=== PATIENT | female | born 1960 | race Caucasian/White ===

== ENCOUNTER 2018-01-17 17:05 | Emergency (ER) | payer BC, SELFPAY ==
[2018-01-17 17:07] VITALS: BP 105/60; PULSE 97; RESP 16; TEMP 36.9; O2SAT 96; BMI 39.2
--- NOTE | 2018-01-17 17:30 | ED.RN ---
PT FAMILY CONCERNED THAT PT HAS HAD MULTIPLE INCIDENTS IN THE PAST WEEK WITH THINGS SUCH .. PUTTING FOOD IN THE OVEN.. TURNING THE GAS ON AND FORGETTING IT. STATES FOUND PT PASSED OUT ON FLOOR YESTERDAY WITH THE OVEN RUNNING. STATES DAYS PRIOR TO THAT PT BURNT FOOD IN THE CROCKPOT SHE FORGOT IT AND FOUND HER PASSED OUT AGAIN WITH FOOD TOTALLY BURNT. PT STATES HAS BEEN VERY SICK THE PAST WEEK WITH NAUSEA AND VOMITING
[2018-01-17] MEDS: 0.9% Normal Saline 1,000 ML 1000 ML IV (17:44)
[2018-01-17 18:13] VITALS: PULSE 96; RESP 17; O2SAT 91
[2018-01-17 18:15] LABS: Bacteria 0 SEEN /hpf (None Seen); Mucous, Urine 0 SEEN /hpf (<or=2+)
[2018-01-17 18:26] LABS: ALB/GLOB Ratio 1.3 RATIO (0.9-2.4); AST(SGOT) 15 U/L (15-37); Alanine Aminotransfer ALT/SGPT 25 U/L (13-56); Albumin, Serum 3.4 g/dL (3.2-5.0); Alkaline Phosphatase 81 U/L (45-117); Anion Gap 11 (5-15); BUN 43 mg/dL (7-18); Calcium,Total 7.8 mg/dL (8.5-10.1); Chloride 109 mmol/L (98-107); Creatinine, Serum 1.59 mg/dL (0.55-1.02); EST Glomerular Filtration Rate 36 mL/min (>60); Est Glom Filt Rate - Afr Amer 43 mL/min (>60); Estimated Creatinine Clearance 39.85 ml/min; Globulin 2.7 g/dL (2.2-4.2); Glucose 109 mg/dL (74-106); Lipase 444 U/L (73-393); Potassium 3.8 mmol/L (3.5-5.1); Protein, Total 6.1 g/dL (6.4-8.2); Sodium Level 142 mmol/L (136-145)
[2018-01-17 18:27] LABS: Color, Urine Yellow (Yellow); Glucose, Dipstick Normal (Normal); Ketone-Dipstick Negative (Negative); Leukocyte Esterase-Dipstick 25 /ul (Negative); Nitrite-Dipstick Negative (Negative); Occult Blood-Urine 25 /ul (Negative); Protein-Dipstick 15 mg/dl (Negative); Urine Bilirubin Dipstick Negative (Negative); Urine Clarity Sl. Cloudy (Clear); Urine Urobilinogen Normal (Normal); Urine pH 6.5 (5.0 - 8.0)
[2018-01-17 18:30] LABS: CPK Total, Creatine Kinase 48 U/L (26-192)
[2018-01-17 18:32] LABS: Absolute Lymphocyte Count 0.96 X10^3/ul (0.83-4.51); Absolute Neutrophil Count 3.2 X10^3/uL (2.0-7.7); Acetaminophen (Tylenol) Level < 2.0 ug/mL (10.0-30.0); Basophil# 0.01 X10^3/uL; Basophil% 0.2 % (0-1); Eosinophil# 0.05 X10^3/uL; Eosinophils% 1.1 % (0-5); Hematocrit 38.1 % (37-47); Hemoglobin 12.3 g/dl (12.0-15.0); Lymphocyte # 0.96 X10^3/ul (4.0); Lymphocyte % 21.6 % (19-41); Mean Corp Hgb Conc 32.3 g/gl (32-36); Mean Corpuscular Hgb 30.9 pg (27.0-32.0); Mean Corpuscular Volume 95.7 fL (81-99); Mean Platelet Vol. 9.7 fl (6.2-12.0); Monocyte# 0.27 X10^3/uL; Monocyte% 6.1 % (0-10); Neutrophil # 3.16 X10^3/uL (2.7-7.7); Platelet Count 165 K/mm3 (150-450); RBC Distribution Width CV 15.5 % (11.6-14.6); RBC Distribution Width SD 54.8 fl (35.1-43.9); Red Blood Count 3.98 M/mm3 (4.2-5.4); Salicylate < 1.7 mg/dL (2.8-20.0); White Blood Count 4.5 K/mm3 (4.4-11.0)
[2018-01-17 18:34] LABS: POSITIVE COUNT NO; POSITIVE DIFFERENTIAL NO; POSITIVE MORPHOLOGY NO
[2018-01-17 18:37] LABS: Red Blood Cells-Urine 0-5 SEEN /hpf (0-5); Squamous Epithelial Cells - UA 0-5 SEEN /hpf (5-10); White Blood Cells 0-5 SEEN /hpf (0-5)
[2018-01-17 18:49] LABS: Amphetamine Urine VISTA NEGATIVE (<1000 ng/mL); Barbiturate Urine VISTA NEGATIVE (< 200 ng/mL); Benzodiazepine Urine VISTA POSITIVE (< 200 ng/mL); Cocaine Urine VISTA NEGATIVE (< 300 ng/mL); Ecstacy Urine VISTA NEGATIVE (< 500 ng/mL); Methadone Urine VISTA NEGATIVE (< 300 ng/mL); PCP Urine VISTA NEGATIVE (< 25 ng/mL); THC Urine VISTA NEGATIVE (< 50 ng/mL); Vista UDS pH Range 6
[2018-01-17 19:09] VITALS: BP 101/78; PULSE 90; RESP 14; O2SAT 99
--- NOTE | 2018-01-17 19:30 | ED.VISSUMM ---
- ER Visit Summary Date of Service: 01/17/18 Chief Complaint: Vomiting and diarrhea History of Present Illness: The patient is a [address] Moran. She reports she has had vomiting and diarrhea for the past 10 days. She states the vomiting 4-5 times per day. 7 3-4 episodes of diarrhea per day. No blood in her emesis or in her stool. No black tarry stools. Patient reports that this afternoon she felt very tired and laid down. States that while she was asleep she was incontinent of stool. She does report that she is on Benadryl daily because I have a cat. States that she took 100 mg at 7:00 this morning. She is also on gabapentin 400 mg 4 times daily. She denies any suicidal ideation or taking her medications inappropriately. Physical Examination: Vitals: Stable. Afebrile. General: Well-nourished and well-developed. Head: Normocephalic atraumatic. Neck: Supple, no lymphadenopathy. No JVD. Nontender. Cardiovascular: Regular rate and rhythm. No murmurs. Respiratory: No respiratory distress. Clear to auscultation bilaterally. Abdominal: Soft, nontender, nondistended, normal bowel sounds. No guarding, rebound, or peritoneal signs. Back: Nontender. Extremities: Nontender, 1+ pitting edema lower extremity bilaterally. Skin: Normal color, no rash. Neurologic: Alert and oriented ?3. Cranial nerves II through XII are intact. Normal strength and sensation. Psych: Normal affect. Test Results: EKG is sinus at 92 with inferior T-wave inversions. There is no old EKG for comparison. Repeat EKG is unchanged. Troponin is negative. CPK is normal. UA is negative. LFTs marked total protein 6.1. Lipase is 444. Chem-7 more for chloride 109, glucose 109, BUN 43, creatinine 1.59, calcium 7.8. CBC is more for 7 neutrophils 71. Blood count level is 194. Tylenol and aspirin levels are negative. Tox screen shows benzodiazepines. Emergency Department Course and Treatment: A prolonged discussion with patient about the episode today. She reports that she and her had a disagreement and she was drinking today because of this. She does not normally drink. Treatment Plan: Patient has had no vomiting or diarrhea while here. She will be discharged instructions follow-up her primary care physician 1 day if not improving. Return to the emergency department for any worsening symptoms. Disposition: To home in improved and stable condition. Impression: 1. Alcohol intoxication. 2. Vomiting/diarrhea. This note was generated with [employer] dictation software. It may contain incorrect words, spelling, and punctuation that were not noted in review of the chart prior to signing ED Disposition - Plan for ED Patient: Disposition: Home or Assisted Living Chief Complaint: Alt LOC Instructions: ED Alcohol Intoxication Referrals: Karl Moran MD [Primary Care Provider] - 1-2 Days if not improving
[2018-01-17 19:34] VITALS: BP 105/70; PULSE 85; RESP 14; O2SAT 98
== END 2018-01-17 19:41 | disposition home or self-care (01) ==
LOC: ED 18:30
PROVIDERS: Emergency Provider Emergency Medicine; Family Provider Family Medicine; PCP Family Medicine
DX: F10.129 Alcohol abuse with intoxication, unspecified (principal); Y90.9 Presence of alcohol in blood, level not specified; R11.2 Nausea with vomiting, unspecified; R19.7 Diarrhea, unspecified; R53.1 Weakness; R10.9 Unspecified abdominal pain; I10 Essential (primary) hypertension; E78.00 Pure hypercholesterolemia, unspecified; N19 Unspecified kidney failure; Z90.49 Acquired absence of other specified parts of digestive tract; Z79.899 Other long term (current) drug therapy
CPT/HCPCS: 80053; 80307; 80320; 80329; 81001; 82550; 83690; 84484; 85025; 93005; 96360; 99285; J7030; A4216; G0480

== ENCOUNTER → 2018-05-03 09:18 | Outpatient (CLI) | payer OTHER, SELFPAY ==
[2018-05-03 09:05] VITALS: BMI 39.9
--- NOTE | 2018-05-03 09:22 | RAD_ITS ---
STUDY: X-RAY - LEFT TIBIA AND FIBULA REASON FOR EXAM: Female, 57 years old. Status post fall TECHNIQUE: 3 view(s) of the tibia and fibula were obtained. COMPARISON: None. FINDINGS: Mildly comminuted proximal fibular fracture without significant angulation or displacement. Remainder of the left tibia and fibula are within normal limits RAD/Tibia & Fibula 2 Views IMPRESSION: Proximal fibular fracture Electronically Signed: Bishop Moreno DO at 9:43 EST Tel , Service support ,
--- OUTSIDE RECORDS SUMMARY | 2018-06-28 04:07 | XMS RPT_ITS ---
:1960 Author Organization OHIP Care Team Providers Name Role Phone Kush Perry Attending Unavailable Kush Perry Referring Unavailable Carlos Guadarrama Primary Care Unavailable Anatoliy Sosa Attending Unavailable Carlos Guadarrama Primary Care Unavailable Nic Camarillo Attending Unavailable Bernardino Sinha Primary Care Unavailable Aimee Myrick Attending Unavailable Bernardino Sinha Referring Unavailable Aimee Myrick Attending Unavailable Aimee Myrick Referring Unavailable Bernardino Sinha Primary Care Unavailable CARLOS GUADARRAMA Attending Unavailable CARLOS GUADARRAMA Referring Unavailable PREM TAM Attending Unavailable BERNARDINO SINHA Referring Unavailable BERNARDINO SINHA Primary Care Unavailable PREM TAM Admitting Unavailable PREM TAM Attending Unavailable PROBLEMS PROBLEMS DATE TYPE CONDITION / CODE ATTENDING STATUS SOURCE 05/13/2018 Admitting Unknown / PREM TAM Active [facility] diagnosis UNK(Unknown) [facility] System Repository 05/03/2018 Unknown M79.662 - Pain in [facility], Active [place] left lower leg / [facility] M79.662(ICD-10) Hospital Repository 09/20/2017 Active Encounter for NA Active [place] screening for [facility] Main malignant neoplasm [place] of colon / Repository Z12.11(ICD-10) 06/25/2017 Unknown F11.20 - Opioid Basali, Ayman Active [place] dependence, Community uncomplicated / Hospital F11.20(ICD-10) Repository PROCEDURES PROCEDURES No Procedure Records FoundRESULTS RESULTS URGENT CARE VISIT Observed: 05/03/2018 Status: F Source: FRANCO REPORT 4:16 PM [facility] REPOSITORY [facility] [address] [place] [address] [address] [place] [address] OFFICE VISIT Date of Service: 05/03/18 MR#: [id number] Acct: [id number] Name: SAMIRAALFIE Karli Rep #: [id number] : 1960 Provider: MARKIE Myrick Age/Sex: 57/F Location: [facility] Status: Signed Intake Vital Signs05/03/18 Height 5 ft 8 in Intake Visit Reasons: L leg fracture? 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 Accompanied by: self Is patient in pain?: Yes Allergies Penicillins Allergy (Verified 05/03/18 09:06) Unknown DUST Allergy (Uncoded 05/03/18 09:06) Unknown SEASONAL Allergy (Uncoded 05/03/18 09:06) Unknown Medications Atorvastatin Calcium [Lipitor] 40 mg PO QHS 03/05/17 [History Confirmed 05/03/18] Diazepam [Valium] 10 mg PO Q8H PRN PRN #10 tab 03/05/17 [Rx Confirmed 05/03/18] Lisinopril [Zestril] 10 mg PO DAILY 03/05/17 [History Confirmed 05/03/18] Sertraline HCl [Zoloft] 100 mg PO DAILY 03/05/17 [History Confirmed 05/03/18] Temazepam [Restoril] 30 mg PO QHS PRN PRN 01/17/18 [History Confirmed 05/03/18] [facility] Medical History Arthritis (Acute) History of diarrhea (Acute) History of umbilical hernia (Acute) Hypertension (Chronic) Surgical History History of appendectomy (Acute) History of cholecystectomy (Acute) History of hysterectomy (Acute) History of tubal ligation (Acute) Social History Smoking Status: Never smoker alcohol intake: never HPI HPI Chief Complaint: Left lower leg pain Details: ALFIE HOGAN, is a 57 F who presents to the office today for left lower leg severe pain with any movement after falling on ice last night and landing with her right foot underneath her left lower leg. She states she went outside to hand a [place] bulb and on first step slipped on ice causing the fall. She took an Ibuprofen and states still had severe pain all night. At rest her pain scale is 7/10. Acute pain 8-10/pain with any attempted rotation of lower leg/ankle, though pain is only in the mid lateral left lower leg, none in the ankle. NO nausea, vomiting, fever or chills. Her History is significant for having OA. She has had 2 back surgeries, the last being a spinal fusion. She has also had 2 total hip replacements, the last in 2014. 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 Constitutional: No body ache, chills, fatigue, fever(s), night sweats, change in appetite, weakness, frequent falls, headache(s) or excessive sweating Eyes Eyes: No visual disturbances, light sensitivity, eye pain or change in vision ENT ENT: No ear pain, ear discharge, hearing loss, dizziness/vertigo, nasal discharge, difficulty swallowing, sore throat, neck pain or headache(s) Resp Respiratory: No cough, chest congestion, hemoptysis, shortness of breath or wheezing Cardio Cardiology: Positive for other (controlled hypertension); no shortness of breath, irregular heart rhythm, lightheadedness, chest pain at rest, chest pain with exertion, generalized swelling, orthopnea, palpitations or excessive sweating Gastro GI: No difficulty swallowing, abdominal pain, bloating, change in bowel habits, diarrhea, blood in stool, Black,tarry stools, nausea/dyspepsia or vomiting Genitourinary-Female: No burning urination, urinary frequency, urinary urgency, blood in urine or Vaginal Itching Musc Musculoskeletal: Positive for limited range of motion (left lower leg); no joint pain, back pain, numbness, tingling or neck pain Skin Skin: No lesions, itching or rash Neuro Neurology: No visual disturbances, numbness, tingling, abnormal speech, confusion, unsteady gait/balance, dizziness, weakness, frequent falls, loss of vision, headache(s) or memory loss Psych Psychiatric: No change in appetite, No confusion, No memory loss, No anxiety, No depression Endo Endocrine: No fatigue, cold intolerance, excessive sweating, flushing, heat intolerance or increased thirst/drinking Aller/Imm Allergy/Immunologic: No wheezing, itchy eyes, food intolerance, seasonal allergy symptoms or hives Vincent/Lymp Hematologic/Lymphatic: No easy bruising Exam Const General: cooperative, acute distress (moderate, severe with left leg movement. ) moderate and severe Nutritional Appearance: overweight Orientation: alert, oriented x3 HENMT Head: normal to inspection, normocephalic Ears: hearing grossly normal bilaterally, external ears normal Face and sinus: normal facial exam Eyes General: appearance normal, both eyes and all related structures Eyelids: eyelids normal Conjunctivae: conjunctivae normal Sclera: sclerae normal Pupils: PERRL, normal by confrontation Direct ophthalmoscopy: normal light reflex, no photophobia Neck Neck: normal visual inspection, full ROM, no meningeal signs, trachea midline, supple, no lymphadenopathy Neck mass: No Thyroid: thyroid normal Carotids: no bruits Lymphatic: no lymphadenopathy noted Chest Chest palpation AND inspection: normal inspection of the chest Resp Effort AND Inspection: normal respiratory effort, able to speak in complete sentences, symmetric chest movement, no audible wheezes, no cough, not labored, no respiratory distress Auscultation: Bilateral: Clear to Auscultation Cardio Rate: regular rate Rhythm: regular rhythm Heart Sounds: S1 normal, S2 normal Musc Cervical Spine: normal cervical lordosis Thoracic/Lumbar Spine: thoracic and lumbar spine normal to inspection Skin General: no rashes or lesions noted Neuro General: alert, oriented x3, moves all extremities (except for left lower extremity due to pain) Cranial Nerves: CN's II-XI intact bilaterally Cognition: normal cognition Speech: speech normal Gait: antalgic, gait assisted Method: wheelchair bound, other Sensory Exam: no sensory deficits noted Extrem General: normal exam except as noted (severe pain left lower leg with any rotation), edema (mild, left lower extremity with firmness, tender lateral mid lower leg) Laterality: left, other (pulses intact, good color) Psych Appearance: grossly normal, well kempt Mental Status: mental status grossly normal Affect: normal affect Speech and Movement: speech and movement normal Attitude: cooperative Thought Process: normal Thought Content: normal Judgment: judgment good Assessment AND Plan Problems 1. Fracture, fibula, proximal S82.839A Plan Patient sent for stat xray left lower leg Will return here to clinic after xrays. Result: Mildly comminuted proximal fibular fracture without significant angulation or displacement. Remainder of the left tibia and fibula are within normal limits. Called to get in to Ortho but no appointments until Sunday available. Boot placed, Patient advised to continue wheelchair use and No weight bearing left lower extremity. She called and made appointment for Sunday while here. Ibuprofen 800 Offered to patient but she refused stating she has otc analgesics at home. (at rest she states her pain is tolerable). Rec: to Ed if sudden swelling , increase in calf pain or SOB occur. 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 Orders Orders: Coding Level of Care Code Off vis,est,level 3 Diagnoses Fracture, fibula, proximal S82.839A Encounter type: initial encounter Fracture type: closed Laterality: left 05/03/18 1616 <Electronically signed by Aimee ADEN> Date Aimee ADEN Cosigner Signature: Date (if applicable) CC: TIBIA AND FIBULA Observed: 05/03/2018 Status: F Source: FRANCO 2 VIEWS 9:22 AM [facility] REPOSITORY [facility] Imaging Services [address] [place] [address] Tibia AND Fibula 2 Views MR#: [id number] Acct: [id number] Name: ALFIE HOGAN Rep #: [id number] : 1960 F 57 From: Bishop Moreno DO PCP: Bernardino Sinha MD Status: REG CLI Study: Tibia AND Fibula 2 Views Date of Exam: 05/03/18 Exam# [id number] Ordering Dr: Aimee Myrick STUDY: X-RAY - LEFT TIBIA AND FIBULA REASON FOR EXAM: Female, 57 years old. Status post fall TECHNIQUE: 3 view(s) of the tibia and fibula were obtained. COMPARISON: None. FINDINGS: Mildly comminuted proximal fibular fracture without significant angulation or displacement. 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 Had PUD in high schooll and was told years ago with IBS. Took ibuprofen for musculoskeletal pains in back. BMs mostly liquid, usually 2 a day , some times many times and socially in convenient. PAST MEDICAL HISTORY Diagnosis Date - Abdominal pain, right lower quadrant - Acute gastritis without mention of hemorrhage - Acute renal failure (HCC) 2011 2012 episodes of Cr elevation - Anxiety - Arthritis, multiple joint involvement - Asthma - DDD (degenerative disc disease), lumbar - Depression with anxiety - Diaphragmatic hernia without mention of obstruction or gangrene - Dyspepsia and other specified disorders of function of stomach - Esophagitis, unspecified - Hyperlipidemia 11/28/2011 - Hypertension - Kidney disease - GENNARO (obstructive sleep apnea) on CPAP - Other and unspecified ovarian cyst Ovarian cyst - Phlebitis and thrombophlebitis of unspecified site - Tobacco use disorder - Urinary calculus, unspecified Renal stones PAST SURGICAL HISTORY Procedure Laterality Date - APPENDECTOMY - COLONOSCOP W/ OR W/O [facility] SPEC 09/15/2005 [facility] Colonoscopy - EGD W/O [facility] SPECIMEN W/BX 08/30/06 - EGD W/O [facility] SPECIMEN W/BX 04/11/11 - LAP CHOLECYSTECT/CHOLANGIOGRAPHY 08/30/06 - OOPHORECTOMY, PART/TOTAL UNILAT/BILAT 2005 bilateral oophorectomy benign cysts, appendectomy - PAST SURGICAL HISTORY OF 2000?, 2009 ruptured disc L3-L4 repair; fusion - PAST SURGICAL HISTORY OF tendonectomy right elbow - PAST SURGICAL HISTORY OF 2008 left MEAGAN - PAST SURGICAL HISTORY OF 12/30/2014 right MEAGAN - REPAIR UMBILICAL LAURA,5+Y/O,REDUC grade 6 Hernia repair, umbilical >5yr - TONSILLECTOMY HX - VAGINAL HYSTERECTOMY adenomysis Allergies: ALLERGIES Allergen Reactions - Cat Hair Standardiz* Other: See Comments - Dust Other: See Comments sneezing - Penicillins - Percocet [Oxycodone* Itching - Seasonal Allergies Other: See Comments ragweed, cats, pollen cause sneezing and eyes watering Medications: BIPAP pantoprazole DR (PROTONIX) 40 mg tablet Take 40 mg by mouth once daily. atorvastatin (LIPITOR) 40 mg tablet take 1 tablet at bedtime for cholesterol sertraline (ZOLOFT) 100 mg tablet Take 2 tablets by mouth once daily. lisinopril (PRINIVIL) 10 mg tablet Take 1 tablet by mouth once daily. CPAP Mask (per patient preference) optional chin strap (if indicated) , filters, tubing, humidifier and lifetime supplies. Dx 327.23. albuterol HFA (VENTOLIN HFA) 90 mcg/actuation inhaler Inhale 2 Puffs as instructed every 4 hours as needed for Wheezing/Shortness of Breath. peg 3350-Electrolytes (GOLYTELY) 236-22.74-6.74 -5.86 gram suspension Refer to printed patient instructions that will be mailed to you. MULTIVITAMIN (DAILY VITAMIN ORAL) Take 1 tablet by mouth once daily. FAMILY HISTORY Problem Relation Age of Onset - Cancer Mother pancreatic - Cancer Maternal Grandmother stomach - Colon Cancer Paternal Grandmother - Hypertension Father - Colon Cancer Father 72 - Stroke Paternal Grandfather Employer And Job Title: None on file Years Of Education Completed: Not specified Marital Status: to Nadia with 2 children Social History Substance Use Topics - Smoking status: Former Smoker Packs/day: 0.10 Years: 20.00 Types: Cigarettes Start date: 12/15/2009 - Smokeless tobacco: Never Used Comment: quit in 2009 - Alcohol use No Review of Systems: Review of Systems Gastrointestinal: Positive for abdominal pain, diarrhea and nausea. Gas Physical Examination: BP 122/80 Pulse 89 Ht 5' 8 (1.73m) Wt 271 lb (122.9kg) SpO2 93% BMI 41.22 kg/(m2). Physical Exam Constitutional: She is oriented to person, place, and time. She appears well-developed and well-nourished. obese HENT: Head: Normocephalic and atraumatic. Right Ear: External ear normal. Left Ear: External ear normal. Nose: Nose normal. Mouth/Throat: Oropharynx is clear and moist. Eyes: Pupils are equal, round, and reactive to light. Conjunctivae and EOM are normal. Neck: Normal range of motion. Neck supple. Cardiovascular: Normal rate, regular rhythm, normal heart sounds and intact distal pulses. Pulmonary/Chest: Effort normal and breath sounds normal. Abdominal: Soft. Bowel sounds are normal. Large and obese abdomen Musculoskeletal: Normal range of motion. Neurological: She is alert and oriented to person, place, and time. She has normal reflexes. Skin: Skin is warm and dry. Psychiatric: She has a normal mood and affect. Her behavior is normal. Judgment and thought content normal. ASSESSMENT: Pain of upper abdomen (primary encounter diagnosis) Diarrhea, unspecified type Gastroesophageal reflux disease, esophagitis presence not specified PLAN: Office Visit on 04/05/18 -COLONOSCOPY - DIAGNOSTIC -[facility] PT ED DIGESTIVE DISEASES -[facility] PT ED DIGESTIVE DISEASES Return if symptoms worsen or fail to improve. I have confirmed and edited as necessary, the PFSH, HPI and ROS obtained by others. Prem Tam MD DATE: 04/05/18 TIME: 9:51 AM CNOV Observed: 04/05/2018 Status: COMPLETED Source: SPARKS 9:30 AM [facility] REPOSITORY Office Visit ([facility]) ALFIE HOGAN ([id number]) 1960 F Date Time Provider Department 04/05/18 9:30 AM PREM TAM [facility] During your visit today, we recorded the following information about you: Pulse Blood pressure Weight Height 89/minute 122/80 122.9 kg 1.727 m Prem Tam MD 04/05/2018 10:16 AM Signed Abdominal Pain HPI: Alfie Hogan is a 57 year old female who presents for Abdominal Pain across epigastric region sometimes spreading down wards, some time with nausea and vomiting for the last 2 months. Had PUD in high schooll and was told years ago with IBS. Took ibuprofen for musculoskeletal pains in back. BMs mostly liquid, usually 2 a day , some times many times and socially in convenient. PAST MEDICAL HISTORY Diagnosis Date - Abdominal pain, right lower quadrant - Acute gastritis without mention of hemorrhage - Acute renal failure (HCC) 2011 2012 episodes of Cr elevation - Anxiety - Arthritis, multiple joint involvement - Asthma - DDD (degenerative disc disease), lumbar - Depression with anxiety - Diaphragmatic hernia without mention of obstruction or gangrene - Dyspepsia and other specified disorders of function of stomach - Esophagitis, unspecified - Hyperlipidemia 11/28/2011 - Hypertension - Kidney disease - GENNARO (obstructive sleep apnea) on CPAP - Other and unspecified ovarian cyst Ovarian cyst - Phlebitis and thrombophlebitis of unspecified site - Tobacco use disorder - Urinary calculus, unspecified Renal stones PAST SURGICAL HISTORY Procedure Laterality Date - APPENDECTOMY - COLONOSCOP W/ OR W/O [facility] SPE[facility] 09/15/2005 [facility] Colonoscopy - EGD W/O [facility] SPECIMEN W/BX 08/30/06 - EGD W/O [facility] SPECIMEN W/BX 04/11/11 - LAP CHOLECYSTECT/CHOLANGIOGRAPHY 08/30/06 - OOPHORECTOMY, PART/TOTAL UNILAT/BILAT 2005 bilateral oophorectomy benign cysts, appendectomy - PAST SURGICAL HISTORY OF 2000?, 2010 ruptured disc L3-L4 repair; fusion - PAST SURGICAL HISTORY OF tendonectomy right elbow - PAST SURGICAL HISTORY OF 2008 left MEAGAN - PAST SURGICAL HISTORY OF 12/30/2014 right MEAGAN - REPAIR UMBILICAL LAURA,5+Y/O,REDUC grade 6 Hernia repair, umbilical >5yr - TONSILLECTOMY HX - VAGINAL HYSTERECTOMY adenomysis Allergies: ALLERGIES Allergen Reactions - Cat Hair Standardiz* Other: See Comments - Dust Other: See Comments sneezing - Penicillins - Percocet [Oxycodone* Itching - Seasonal Allergies Other: See Comments ragweed, cats, pollen cause sneezing and eyes watering Medications: BIPAP pantoprazole DR (PROTONIX) 40 mg tablet Take 40 mg by mouth once daily. atorvastatin (LIPITOR) 40 mg tablet take 1 tablet at bedtime for cholesterol sertraline (ZOLOFT) 100 mg tablet Take 2 tablets by mouth once daily. lisinopril (PRINIVIL) 10 mg tablet Take 1 tablet by mouth once daily. CPAP Mask (per patient preference) optional chin strap (if indicated) , filters, tubing, humidifier and lifetime supplies. Dx 327.23. albuterol HFA (VENTOLIN HFA) 90 mcg/actuation inhaler Inhale 2 Puffs as instructed every 4 hours as needed for Wheezing/Shortness of Breath. peg 3350-Electrolytes (GOLYTELY) 236-22.74-6.74 -5.86 gram suspension Refer to printed patient instructions that will be mailed to you. MULTIVITAMIN (DAILY VITAMIN ORAL) Take 1 tablet by mouth once daily. FAMILY HISTORY Problem Relation Age of Onset - Cancer Mother pancreatic - Cancer Maternal Grandmother stomach - Colon Cancer Paternal Grandmother - Hypertension Father - Colon Cancer Father 72 - Stroke Paternal Grandfather Employer And Job Title: None on file Years Of Education Completed: Not specified Marital Status: to Nadia with 2 children Social History Substance Use Topics - Smoking status: Former Smoker Packs/day: 0.10 Years: 20.00 Types: Cigarettes Start date: 12/15/2009 - Smokeless tobacco: Never Used Comment: quit in 2009 - Alcohol use No Review of Systems: Review of Systems Gastrointestinal: Positive for abdominal pain, diarrhea and nausea. Gas Physical Examination: BP 122/80 Pulse 89 Ht 5' 8 (1.73m) Wt 271 lb (122.9kg) SpO2 93% BMI 41.22 kg/(m2). Physical Exam Constitutional: She is oriented to person, place, and time. She appears well-developed and well-nourished. obese HENT: Head: Normocephalic and atraumatic. Right Ear: External ear normal. Left Ear: External ear normal. Nose: Nose normal. Mouth/Throat: Oropharynx is clear and moist. Eyes: Pupils are equal, round, and reactive to light. Conjunctivae and EOM are normal. Neck: Normal range of motion. Neck supple. Cardiovascular: Normal rate, regular rhythm, normal heart sounds and intact distal pulses. Pulmonary/Chest: Effort normal and breath sounds normal. Abdominal: Soft. Bowel sounds are normal. Large and obese abdomen Musculoskeletal: Normal range of motion. Neurological: She is alert and oriented to person, place, and time. She has normal reflexes. Skin: Skin is warm and dry. Psychiatric: She has a normal mood and affect. Her behavior is normal. Judgment and thought content normal. ASSESSMENT: Pain of upper abdomen (primary encounter diagnosis) Diarrhea, unspecified type Gastroesophageal reflux disease, esophagitis presence not specified PLAN: Office Visit on 04/05/18 -COLONOSCOPY - DIAGNOSTIC -[facility] PT ED DIGESTIVE DISEASES -[facility] PT ED DIGESTIVE DISEASES Return if symptoms worsen or fail to improve. I have confirmed and edited as necessary, the PFSH, HPI and ROS obtained by others. Prem Tam MD DATE: 04/05/18 TIME: 9:51 AM Referring Provider: BERNARDINO SINHA [[id number]] Allergies As of Date: 04/05/2018 Noted Allergy Reaction CAT HAIR STANDARDIZED ALLERGENIC *10/31/2017 14 - Other: See Comments DUST 04/13/2014 14 - Other: See Comments Comments: sneezing PENICILLINS 09/13/2005 PERCOCET (OXYCODONE-ACETAMINOPHEN)01/13/2015 9 - Itching SEASONAL ALLERGIES 04/13/2014 14 - Other: See Comments Comments: ragweed, cats, pollen cause sneezing and eyes watering Date Reviewed: 04/05/2018 Reviewed by: Prem Tam - Fully Assessed Reason for Visit: Abdominal Pain [1] Primary Visit Diagnosis:Pain of upper abdomen [R10.10] Other Visit Diagnoses:Diarrhea, unspecified type [R19.7] Gastroesophageal reflux disease, esophagitis presence not specified [K21.9] Order(s):COLONOSCOPY - DIAGNOSTIC [[id number]] Order #: [id number] [facility] PT ED DIGESTIVE DISEASES [] Order #: [id number]: 1 [facility] PT ED DIGESTIVE DISEASES [] Order #: [id number]. #:[id number]: 1 peg 3350-Electrolytes (GOLYTELY) 236-22.74-6.74 - 5.86 gram suspensionRefer to printed patient instructions that will be mailed to you.Disp: 1 BottleRfl: 0 Prescriptions as of 04/05/2018 Sig: BIPAP PANTOPRAZOLE 40 MG TABLET,DEL* Take 40 mg by mouth once earl* ATORVASTATIN 40 MG TABLET take 1 tablet at bedtime for * SERTRALINE 100 MG TABLET Take 2 tablets by mouth once * LISINOPRIL 10 MG TABLET Take 1 tablet by mouth once d* CPAP Mask (per patient preference)* ALBUTEROL SULFATE HFA 90 MCG/* Inhale 2 Puffs as instructed * PEG 3350-ELECTROLYTES 236 GRA* Refer to printed patient inst* DAILY VITAMIN ORAL Take 1 tablet by mouth once d* Problem List As Of Date 04/05/2018 Noted Resolved CHOLECYSTITIS SEE ALSO GALLBLADDER CHRONIC [K*INVALID FOR*12/15/2014 Diaphragmatic hernia without mention of obstruc*INVALID FOR* Acute gastritis without mention of hemorrhage [*INVALID FOR*12/15/2014 Esophagitis, unspecified [K20.9] INVALID FOR*12/15/2014 Dyspepsia and other specified disorders of func*INVALID FOR*12/15/2014 Hypertension [I10] 12/15/2014 Tobacco use disorder [F17.200] 12/15/2014 GENNARO (obstructive sleep apnea) [G47.33] More... Arthritis, multiple joint involvement [M12.9] Asthma [J45.909] Depression with anxiety [F41.8] Hyperlipidemia [E78.5] INVALID FOR*12/15/2014 Right groin pain [R10.31] INVALID FOR*11/22/2016 Acute right hip pain [M25.551] INVALID FOR*11/22/2016 DDD (degenerative disc disease), lumbar [M51.36] Acute renal failure (HCC) [N17.9] 11/22/2016 More... Lumbar scoliosis [M41.9] INVALID FOR* Primary osteoarthritis of right hip [M16.11] INVALID FOR* History of right hip replacement [Z96.641] INVALID FOR* History of kidney injury [Z87.828] INVALID FOR* More... Chronic insomnia [F51.04] INVALID FOR* More... Prescriptions ordered this encounter Disp Refills Start End PEG 3350-ELECTROLYTES 236 GRAM-22.74* 1 Douglas* 0 04/05/2018 Sig: Refer to printed patient instructions that will be mailed to you. Medications Discontinued During This Encounter gabapentin (NEURONTIN) 300 mg capsule 60 c* 2 08/30/2017 04/05/2018 Sig: One po at hs for one week then increase to one po bid. Patient not taking: Reported on 04/05/2018 Disc: Discontinued by another Health Care Provider Disposition: Return if symptoms worsen or fail to improve. Follow-up and Disposition History Recorded Encounter Status:Closed by PREM TAM MD on 04/05/18 CNCO Observed: 04/05/2018 Status: COMPLETED Source: [place] 12:00 AM [facility] REPOSITORY Letter Text COLONOSCOPY-GOLYTELY NO SOLID FOOD THE DAY BEFORE THIS EXAM Appointment Date: Sunday05/13/18 at 9:00 am Facility: [place] [address] Arrive At: 8:15 am AM Special Instructions: GLASS BUILDING You must have a responsible adult to drive you home and assist you at home while you finish recovering from your sedation. Please bring only one person with you. 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 Arrive 30-45 minutes before your procedure time. Purchase at the Pharmacy: Fill prescription for Golytely and 4 Dulcolax tablets. THE DAY BEFORE YOUR EXAM: 1. FOLLOW A CLEAR LIQUID DIET ALL DAY. 2. At 1:00PM, take 4 Dulcolax tablets. 3. At 5:00PM, start drinking solution. Drink a total of eight 8 oz glasses, one every 15-20 minutes. Please put the rest of the solution in the refrigerator for tomorrow morning. THE DAY OF YOUR EXAM 1. At 5:00 AM (four hours before your procedure) : drink one 8 oz glass every 15-20 minutes. Drink a total of four 8 oz glasses. Discard the remainder of the solution. 2. DO NOT DRINK ANYTHING ELSE AFTER THIS STEP IS COMPLETED. Nothing by mouth including clear liquids, food, gum and hard candy. 5 DAYS BEFORE EXAM STOP TAKING ASPIRIN OR ASPIRIN CONTAINING PRODUCTS, VITAMIN E AND IRON, BLOOD THINNERS SUCH COUMADIN, PLAVIX, AGGRENOX. DIABETICS ONLY Take only 1/2 of your daily dose of insulin or tablets the day before your exam. Do not take any more of your diabetic medications until the procedure is over and you have resumed eating again. Drink regular liquids, not diabetic and monitor your sugar throughout the day you are on clear liquids. If your sugar gets too low, drink some apple juice. It is very important that you drink all of the solution that we tell you to drink, if you do not complete the prep, your procedure may be cancelled. Any questions, please call our office at [phone] Ext [phone], [phone] or [phone]. 12 LEAD ELECTROCARDIOGRAM Observed: 01/22/2018 Status: F Source: [place] 1:48 PM [facility] REPOSITORY [facility] Cardiovascular Services [address] [place] [id number] 12 Lead EKG 01/17/18 1855 MR#: [id number] Acct: [id number] Name: ALFIE HOGAN Rep #: [id number] : 1960 57 From: Akin Stoll MD Attending Dr: Status: DEP ER Ordering Dr: Nic Camarillo MD Date: 01/17/18 Location: ED Sex: F C Admitted: Test Reason : REPEAT Blood Pressure : / mmHG Vent. Rate : 091 BPM Atrial Rate : 091 BPM P-R Int : 160 ms QRS Dur : 090 ms QT Int : 390 ms P-R-T Axes : 052 079 -12 degrees QTc Int : 479 ms Normal sinus rhythm Low voltage QRS ST AND T wave abnormality, consider inferior ischemia Prolonged QT Abnormal ECG Confirmed by AKIN STOLL MD ([id number]), material expeditor CHRISS MORA ([id number]) on 01/22/2018 1:47:36 PM Referred By: ELVIRA Confirmed By:AKIN STOLL MD 01/22/18 6760 Date Akin Stoll MD CC: Bernardino Sinha MD; Nic Camarillo MD Signed 12 LEAD ELECTROCARDIOGRAM Observed: 01/22/2018 Status: F Source: [place] 1:47 PM [facility] REPOSITORY [facility] Cardiovascular Services [address] [place] [id number] 12 Lead EKG 01/17/18 1748 MR#: [id number] Acct: [id number] Name: ALFIE HOGAN Rep #: [id number] : 1960 57 From: Akin Stoll MD Attending Dr: Status: DEP ER Ordering Dr: Nic Camarillo MD Date: 01/17/18 Location: ED Sex: F C Admitted: Test Reason : ALT LOC Blood Pressure : / mmHG Vent. Rate : 092 BPM Atrial Rate : 092 BPM P-R Int : 166 ms QRS Dur : 070 ms QT Int : 382 ms P-R-T Axes : 050 080 -17 degrees QTc Int : 472 ms AGE AND GENDER SPECIFIC ECG ANALYSIS Normal sinus rhythm Low voltage QRS Abnormal ECG Confirmed by AKIN STOLL MD ([id number]), material expeditor CHRISS MORA ([id number]) on 01/22/2018 1:47:23 PM Referred By: LONNY Confirmed By:AKIN STOLL MD 01/22/18 9397 Date Akin Stoll MD CC: Bernardino Sinha MD; Nic Camarillo MD Signed EMERGENCY DEPARTMENT Observed: 01/17/2018 Status: F Source: [place] SUMMARY 11:57 PM [facility] REPOSITORY [facility] Medical Records Department [address] [place] [address] Emergency Department Summary 01/17/181929 MR#: [id number] Acct: [id number] Name: ALFIE HOGAN Rep #: [id number] : 1960 57 From: Nic Camarillo MD PCP: Bernardino Sinha MD Status: DEP ER - ER Visit Summary Date of Service: 01/17/18 Chief Complaint: Vomiting and diarrhea History of Present Illness: The patient is a [address] Sinha. She reports she has had vomiting and diarrhea for the past 10 days. She states the vomiting 4-5 times per day. 7 3-4 episodes of diarrhea per day. No blood in her emesis or in her stool. No black tarry stools. Patient reports that this afternoon she felt very tired and laid down. States that while she was asleep she was incontinent of stool. She does report that she is on Benadryl daily because I have a cat. States that she took 100 mg at 7:00 this morning. She is also on gabapentin 400 mg 4 times daily. She denies any suicidal ideation or taking her medications inappropriately. Physical Examination: Vitals: Stable. Afebrile. General: Well-nourished and well-developed. Head: Normocephalic atraumatic. Neck: Supple, no lymphadenopathy. No JVD. Nontender. Cardiovascular: Regular rate and rhythm. No murmurs. Respiratory: No respiratory distress. Clear to auscultation bilaterally. Abdominal: Soft, nontender, nondistended, normal bowel sounds. No guarding, rebound, or peritoneal signs. Back: Nontender. Extremities: Nontender, 1+ pitting edema lower extremity bilaterally. Skin: Normal color, no rash. Neurologic: Alert and oriented 3. Cranial nerves II through XII are intact. Normal strength and sensation. Psych: Normal affect. Test Results: EKG is sinus at 92 with inferior T-wave inversions. There is no old EKG for comparison. Repeat EKG is unchanged. Troponin is negative. CPK is normal. UA is negative. LFTs marked total protein 6.1. Lipase is 444. Chem-7 more for chloride 109, glucose 109, BUN 43, creatinine 1.59, calcium 7.8. CBC is more for 7 neutrophils 71. Blood count level is 194. Tylenol and aspirin levels are negative. Tox screen shows benzodiazepines. Emergency Department Course and Treatment: A prolonged discussion with patient about the episode today. She reports that she and her had a disagreement and she was drinking today because of this. She does not normally drink. Treatment Plan: Patient has had no vomiting or diarrhea while here. She will be discharged instructions follow-up her primary care physician 1 day if not improving. Return to the emergency department for any worsening symptoms. Disposition: To home in improved and stable condition. Impression: 1. Alcohol intoxication. 2. Vomiting/diarrhea. This note was generated with VIOSOation software. It may contain incorrect words, spelling, and punctuation that were not noted in review of the chart prior to signing ED Disposition - Plan for ED Patient: Disposition: Home or Assisted Living Chief Complaint: Alt LOC Instructions: ED Alcohol Intoxication Referrals: Bernardino Sinha MD [Primary Care Provider] - 1-2 Days if not improving What to do if you have Problems For any increased pain, shortness of breath, bleeding, nausea or vomiting, chest pain, or any unexpected problems, contact your Primary Care Provider. Call [facility] ([phone]) or report to the closest Emergency Room. Call 911 if necessary. 01/17/18 4404 <Electronically signed by Nic Camarillo MD> Date Nic Camarillo MD Cosigner Signature (If Indicated): Date CC: Bernardino Sinha MD URINE DRUG SCREEN Collected: 01/17/2018 Status: F Source: [place] (VISTA) 6:05 PM [facility] REPOSITORY Order Comment: Order Date: 01/17/18 Has pt arrived? Y TYPE CODE TESTS RESULT OUT OF RANGE REFERENCE UNITS LAB L505.0075 TO BE Normal CONFIRMED Result Comment: CONFIRMATORY TESTING FOR ALL POSITIVE URINE DRUG SCREEN RESULTS WILL ONLY BE SENT OUT UPON PHYSICIAN ORDER. VISTA Urine Drug Screen methods provide only preliminary analytical test results. A more specific alternate chemical method must be used in order to obtain a confirmed analytical result. Gas chromatography/mass spectrometery (GC/MS) is the preferred confirmatory method. Clinical consideration and professional judgement should be applied to any drug of abuse test result, particularly when preliminary positive results are used. URINE TCA TESTING MUST BE ORDERED SEPARATELY. USE TEST MNEMONIC: [facility] LAB L505.5005 VISTA UDS PH 6 Normal LAB L505.5015 <1000 ng/mL AMPHETAMINES Normal NEGATIVE LAB L505.5025 < 200 ng/mL BARBITIURATES Normal NEGATIVE LAB L505.5035 < 200 High ng/mL BENZODIAZIPINE POSITIVE LAB L505.5045 < 300 ng/mL COCAINE Normal NEGATIVE LAB L505.5055 < 500 ng/mL ECSTACY Normal NEGATIVE LAB L505.5065 < 300 ng/mL METHADONE Normal NEGATIVE LAB L505.5075 < 300 ng/mL OPIATES Normal NEGATIVE LAB L505.5085 < 25 ng/mL PCP Normal NEGATIVE LAB L505.5095 < 50 ng/mL THC Normal NEGATIVE Performed By: #### L505.5000 #### [facility] [address] [place], [address] URINALYSIS, COMPLETE Collected: 01/17/2018 Status: F Source: [place] 6:05 PM [facility] REPOSITORY Order Comment: Order Date: 01/17/18 Has pt arrived? Y How was Urine Obtained? CLEAN CATCH TYPE CODE TESTS RESULT OUT OF RANGE REFERENCE UNITS LAB L400.3000 Yellow COLOR Normal Yellow LAB L400.3050 Clear Normal CLARITY Sl. Cloudy LAB L400.3200 Normal mg/dl Normal GLUCOSE, UR Normal LAB L400.3300 Negative mg/dL Normal BILIRUBIN URINE Negative LAB L400.3400 Negative mg/dl Normal KETONE UR Negative LAB L400.3465 1.002-1.030 Normal SP.GR. DIPSTX 1.010 LAB L400.3550 5.0 - 8.0 pH UR Normal 6.5 LAB L400.3600 Negative mg/dl High PROT 15 DIPSTX LAB L400.3700 Normal mg/dl Normal UROBILI Normal LAB L400.3750 Negative Normal NITRITE UR Negative LAB L400.3780 Negative /ul High 25 OCCULT BLOOD-UR LAB L400.3800 Negative /ul High LEUK 25 ESTERASE LAB L400.4050 0-5 /hpf WBC Normal 0-5 SEEN LAB L400.4100 0-5 /hpf Normal RBC-UA 0-5 SEEN LAB L400.4150 5-10 /hpf SQUAM Normal EPI 0-5 SEEN LAB L400.4300 None Seen /hpf 0 Normal BACTERIA SEEN LAB L400.4350 <or=2+ /hpf 0 Normal MUCUS, URINE SEEN Performed By: #### L400.0001 #### [facility] [address] [place], [place], [address] COMPREHENSIVE METABOLIC Collected: 01/17/2018 Status: F Source: [facility] 5:50 PM [facility] REPOSITORY TYPE CODE TESTS RESULT OUT OF RANGE REFERENCE UNITS LAB L501.0100 74-106 mg/dL High GLU 109 Result Comment: Fasting Glucose result from 100 to 125 mg/dL suggests IMPAIRED HOMEOSTASIS per A.D.A. criteria. Please note revised GLUCOSE reference range effective 2017. LAB L501.1000 7-18 mg/dL High BUN 43 LAB L501.1100 0.55-1.02 mg/dL High CREAT,SERUM 1.59 Result Comment: The validity of the calculated GFR AND GFRAA in patients over 70 years has not been determined. Clinical correlation is essential. LAB L501.1110 >60 mL/min Low EST GFR 36 Result Comment: Non- GFR Calc LAB L501.1115 >60 mL/min Low EST GFR - AA 43 Result Comment: GFR Calc LAB L501.1255 ml/min Normal Estimated CRCL 39.85 LAB L501.1300 10-20 RATIO High BUN/CRE 27.0 LAB L501.1500 6.4-8. g/dL Low 2 T PROT 6.1 LAB L501.1800 3.2-5. g/dL Normal 0 ALB 3.4 LAB L501.1950 2.2-4. g/dL Normal 2 GLOB 2.7 LAB L501.2000 0.9-2. RATIO Normal 4 A/G 1.3 LAB L501.2200 8.5-10 mg/dL Low .1 CA 7.8 LAB L501.4100 15-37 U/L Normal AST 15 LAB L501.4305 45-117 U/L Normal ALK P 81 LAB L501.4405 13-56 U/L Normal ALT 25 LAB L501.4600 0.20-1 mg/dL Normal .00 T BILI 0.40 LAB L501.5300 136-14 mmol/L Normal 5 NA 142 LAB L501.5600 3.5-5. mmol/L Normal 1 K 3.8 LAB L501.5900 98-107 mmol/L High CL 109 LAB L501.6100 21.0-3 mmol/L Normal 2.0 CO2 22.0 LAB L501.6200 5-15 Normal GAP 11 Performed By: #### L500.4050, L501.2450 #### [facility] [address] [place], [address] LIPASE Collected: 01/17/2018 Status: F Source: [place] 5:50 PM [facility] REPOSITORY TYPE CODE TESTS RESULT OUT OF REFERENCE UNITS RANGE LAB L501.2450 73-393 U/L High LIPASE 444 Performed By: #### L500.4050, L501.2450 #### [facility] [address] [place], [address] CPK TOTAL, CREATINE Collected: 01/17/2018 Status: F Source: [place] KINASE 5:50 PM [facility] REPOSITORY TYPE CODE TESTS RESULT OUT OF RANGE REFERENCE UNITS LAB L501.3620 26-192 U/L Normal CPK TOTAL 48 Performed By: #### L501.3620 #### [facility] [address] [place], [address] SALICYLATE Collected: 01/17/2018 Status: F Source: [place] 5:50 PM [facility] REPOSITORY TYPE CODE TESTS RESULT OUT OF REFERENCE UNITS RANGE LAB L501.8300 2.8-20.0 mg/dL Low SALICYLATE < 1.7 Performed By: #### L501.8300, L501.8400, L501.9100 #### [facility] [address] [facility], [place], [address] ACETAMINOPHEN (TYLENOL) Collected: 01/17/2018 Status: F Source: [place] LEVEL 5:50 PM [facility] REPOSITORY TYPE CODE TESTS RESULT OUT OF REFERENCE UNITS RANGE LAB L501.8400 10.0-30.0 ug/mL ACETAMINOPHEN Low < 2.0 Performed By: #### L501.8300, L501.8400, L501.9100 #### [facility] [address] [facility] [place], [address] ALCOHOL, BLOOD Collected: 01/17/2018 Status: F Source: [place] (MEDICAL)-SERUM 5:50 PM [facility] REPOSITORY TYPE CODE TESTS RESULT OUT OF RANGE REFERENCE UNITS LAB L501.9100 mg/dL Normal SERUM 194.0 ETOH Result Comment: The serum:whole blood ethanol ratio is approximately 1.14 and varies slightly with hematocrit. Medical Alcohol reference interval and critical value in non-tolerant individuals; 50 - 100 Impairment 100 Intoxication 100 - 250 Severe Poisoning 250 - 400 Deep/possible fatal coma Performed By: #### L501.8300, L501.8400, L501.9100 #### [facility] [address] [place], [place], [address] CBC W/DIFF, AUTOMATED Collected: 01/17/2018 Status: F Source: [place] 5:50 PM [facility] REPOSITORY TYPE CODE TESTS RESULT OUT OF RANGE REFERENCE UNITS LAB L100.1000 4.4-11.0 K/mm3 Normal WBC 4.5 LAB L100.1200 4.2-5.4 M/mm3 Low RBC 3.98 LAB L100.1300 12.0-15.0 g/dl Normal HGB 12.3 LAB L100.1400 37-47 % Normal HCT 38.1 LAB L100.1500 81-99 fL Normal MCV 95.7 LAB L100.1600 27.0-32.0 pg Normal MCH 30.9 LAB L100.1700 32-36 g/gl Normal MCHC 32.3 LAB L100.1810 11.6-14.6 % High RDW CV 15.5 LAB L100.1820 35.1-43.9 fl High RDW SD 54.8 LAB L100.1900 150-450 K/mm3 Normal PLT 165 LAB L100.2000 6.2-12.0 fl Normal MPV 9.7 LAB L100.2100 47-70 % High NEUT% 71.0 LAB L100.2200 19-41 % Normal LY% 21.6 LAB L100.2300 0-10 % Normal MONO% 6.1 LAB L100.2400 0-5 % Normal EO% 1.1 LAB L100.2500 0-1 % Normal BASO% 0.2 LAB L100.2550 0.0-0.9 % Normal IM GRAN % 0.000 Result Comment: IG% - Immature Granulocytes (promyelocytes, myelocytes and metamyelocytes) > 1% indicates that a LEFT SHIFT is Present. LAB L100.2620 2.0-7.7 X10 3/uL Normal Absolute Neut 3.2 LAB L100.2720 0.83-4.51 X10 3/ul Normal Absolute Lymph 0.96 Performed By: #### L100.0100 #### [facility] [address] [place], [address] TROPONIN-I Collected: 01/17/2018 Status: F Source: [place] 5:50 PM [facility] REPOSITORY TYPE CODE TESTS RESULT OUT OF RANGE REFERENCE UNITS [facility] L501.4010 <0.045 ng/mL Normal < 0.015 TROPONIN-I Result Comment: TROPONIN-I EXPECTED VALUES <0.045 Negative 0.045 - 0.590 Consistent with Cardiac Damage > OR = 0.600 Critical Value Not every elevated troponin is indicative of FL. These values should be used with clinical judgement in examining the patient's clinical picture for diagnosis. To establish a diagnosis of FL versus myocardial injury, there must be a demonstrated rise and/or fall in the troponin values, in addition to ischemic symptoms, EKG changes, new regional wall motion abnormality, and/or angiographical evidence. PLEASE NOTE: REFERENCE RANGES EDITED 17 Performed By: #### L501.4010 #### [facility] [address] [place], [address] FECAL OCCULT BLD Collected: 09/19/2017 Status: F Source: [facility] 6:00 PM [facility] REPOSITORY TYPE CODE TESTS RESULT OUT OF REFERENCE UNITS RANGE LAB IFO Negative Immuno Negative FOB Result Comment: This test was developed and its performance characteristics determined by [facility] [place] ([facility]). It has not been cleared or approved by the FDA. -[facility] is regulated under CLIA as qualified to perform high-complexity testing. This test is used for clinical purposes. It should not be regarded as investigational or for research. Performed By: #### IFOBT #### [facility] [address] [place], [place] [address] PROGRESS Observed: 08/03/2017 Status: COMPLETED Source: [place] 9:24 AM [facility] [place] REPOSITORY HNO ID: [id number] Author: Carlos Guadarrama Service: (none) Author Type: Physician Type: Progress Notes Filed: 08/03/2017 10:36 AM Note Text: Patient presents with: 6 Month Exam HPI: Patient presents today for office visit for follow up visit. Due for follow up. Did not get labs ordered in the fall. 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 Will get today. Denies side effects: No. Chest pain: No. Dyspnea: No. Edema: No. Palpitations: No. Syncope: No. Headache: No. Dizziness: No. Insomnia:OARRS website checked and validated. All prescriptions have been APPROPRIATELY filled. No suspicious activity was identified.- 08/03/2017 by Carlos Guadarrama MD. Now seeing Dr. Perry and receiving tramadol. Discussed risks of using benzos and opiates together. Explained our policy is using weaning and stopping one or the other. Is stopping tramadol. Did controlled substance agreement. Chronic pain: still on gabapentin. She is not happy with pain management. They want to do injections. Wants to be switch and see Dr. Alvarenga. HYPERLIPIDEMIA: Patient is taking medications: no, chiropractor convinced her to stop. Reviewed labs with her which are really bad. PSYCH: Currently tolerating medications well: Yes . Side effects: No. Sleep issues: With med.s . Energy changes: No. Current depression: No. Current anxiety: No. Suicidal ideation: No. GENNARO:switched to bipap. MEDICATIONS: Current Outpatient Prescriptions: temazepam (RESTORIL) 30 mg cap Take 1 capsule by mouth at bedtime as needed for up to 30 days. 15/ month. Do not refill more than monthly. lisinopril (PRINIVIL) 10 mg tablet Take 1 tablet by mouth once daily. gabapentin (NEURONTIN) 300 mg capsule One po at hs for one week then increase to one po bid. atorvastatin (LIPITOR) 40 mg tablet Take 1 tablet by mouth daily at bedtime. For cholesterol. sertraline (ZOLOFT) 100 mg tablet Take 2 tablets by mouth once daily. CPAP Mask (per patient preference) optional chin strap (if indicated) , filters, tubing, humidifier and lifetime supplies. Dx 327.23. albuterol HFA (VENTOLIN HFA) 90 mcg/actuation inhaler Inhale 2 Puffs as instructed every 4 hours as needed for Wheezing/Shortness of Breath. MULTIVITAMIN (DAILY VITAMIN ORAL) Take 1 tablet by mouth once daily. No current facility-administered medications for this visit. ALLERGIES: ALLERGIES Allergen Reactions - Dust Other: See Comments sneezing - Penicillins - Percocet [Oxycodone* Itching - Seasonal Allergies Other: See Comments ragweed, cats, pollen cause sneezing and eyes watering PAST MEDICAL HISTORY Diagnosis Date - Abdominal pain, right lower quadrant - Acute gastritis without mention of hemorrhage - Acute renal failure (HCC) 2011 2012 episodes of Cr elevation - Arthritis, multiple joint involvement - Asthma - DDD (degenerative disc disease), lumbar - Depression with anxiety - Diaphragmatic hernia without mention of obstruction or gangrene - Dyspepsia and other specified disorders of function of stomach - Esophagitis, unspecified - Hyperlipidemia 11/28/2011 - Hypertension - GENNARO (obstructive sleep apnea) on CPAP - Other and unspecified ovarian cyst Ovarian cyst - Phlebitis and thrombophlebitis of unspecified site - Tobacco use disorder - Urinary calculus, unspecified Renal stones PAST SURGICAL HISTORY Procedure Laterality Date - COLONOSCOP W/ OR W/O [facility] SPEC 09/15/2005 [facility] Colonoscopy - EGD W/O [facility] SPECIMEN W/BX 08/30/06 - EGD W/O [facility] SPECIMEN W/BX 04/11/11 - LAP CHOLECYSTECT/CHOLANGIOGRAPHY 08/30/06 - OOPHORECTOMY, PART/TOTAL UNILAT/BILAT 2005 bilateral oophorectomy benign cysts, appendectomy - PAST SURGICAL HISTORY OF 2000?, 2010 ruptured disc L3-L4 repair; fusion - PAST SURGICAL HISTORY OF tendonectomy right elbow - PAST SURGICAL HISTORY OF 2008 left MEAGAN - PAST SURGICAL HISTORY OF 12/30/2014 right MEAGAN - REPAIR UMBILICAL LAURA,5+Y/O,REDUC grade 6 Hernia repair, umbilical >5yr - VAGINAL HYSTERECTOMY adenomysis FAMILY HISTORY Problem Relation Age of Onset - Cancer Mother pancreatic - Cancer Maternal Grandmother stomach - Colon Cancer Paternal Grandmother - Hypertension Father - Colon Cancer Father 72 - Stroke Paternal Grandfather Social History Marital status: Spouse name: Nadia Years of education: Number of children: 2 Social History Main Topics Smoking status: Former Smoker Packs/day: 0.10 Years: 20.00 Types: Cigarettes Start date: 12/15/2009 Smokeless status: Never Used Comment: quit in 2009 Alcohol use: Yes 1.5 - 3.0 oz/week 1 - 2 Glasses of Wine (5oz) per week Drug use: No Sexual activity: Not Currently Reviewed current medications, allergies, past medical history, surgical history, family history and social history today. REVIEW OF SYSTEMS All other reviewed and negative other than HPI. HEALTH MAINTENANCE: Reviewed health maintenance issues today and recommended the following in detail. COLORECTAL CANCER SCREENING,SEE MODIFIER -recommended. MAMMOGRAM-recommended. VITALS: BP 160/108 Pulse 68 Resp 20 Wt 117.9 kg (260 lb) BMI 39.53 kg/m2 Last 4 Encounter Wt Readings: Date: Wt: 08/03/2017 117.9 kg (260 lb) 11/22/2016 115.7 kg (255 lb) 10/11/2016 112.5 kg (248 lb) 09/29/2016 104.3 kg (230 lb) PHYSICAL EXAMINATION: General appearance: Well appearing, alert, in no acute distress, well-hydrated, well nourished. Skin: Skin color, texture, turgor normal, no suspicious rashes or lesions Head: Normocephalic, no masses, lesions, tenderness or abnormalities Neck: Supple, no adenopathy; thyroid symmetric, normal size, no bruits Lungs: Lungs clear to auscultation. No wheezing, rhonchi, rales Heart: RRR without murmur, gallop, or rubs. No ectopy Abdomen: Normal abdominal exam, Abdomen soft, non-tender. Bowel sounds normal. No masses, organomegaly Extremities: No deformities, edema, skin discoloration, clubbing or cyanosis. Good capillary refill. PSYCH:Affect normal. Normal speech. Normal eye contact ASSESSMENT/PLAN: 1. GENNARO (obstructive sleep apnea) - ICD9: 327.23, ICD10: G47.33 (primary diagnosis) - continue treatment. 2. Depression with anxiety - ICD9: 300.4, ICD10: F41.8 - Continue current medications. Notify us if any difficulties are noted. 3. Asthma with acute exacerbation, unspecified asthma severity, unspecified whether persistent - ICD9: 493.92, ICD10: J45.901 - continue 4. DDD (degenerative disc disease), lumbar - ICD9: 722.52, ICD10: M51.36 - CONSULT TO PAIN MGT ANESTHESIA 5. Arthritis, multiple joint involvement - ICD9: 716.99, ICD10: M12.9 - see pain management. 6. Screening for colon cancer - ICD9: V76.51, ICD10: Z12.11 - declines colonscopy - FECAL OCCULT BLOOD TEST 7. Screening breast examination - ICD9: V76.10, ICD10: Z12.31 - Follow up for annual exam in one year. - ANTONIO SCREENING 8. Hyperlipidemia, unspecified hyperlipidemia type - ICD9: 272.4, ICD10: E78.5 - suboptimal control and - noncompliance - start meds. Get labs in six weeks. - COMP METABOLIC PANEL - LIPID PANEL BASIC - TSH BLD - T4 FREE/FREE THYROX 9. Primary osteoarthritis of right hip - ICD9: 715.15, ICD10: M16.11 - check vitamin d - VITAMIN D 25 HYDROXY 10. Chronic insomnia - ICD9: 780.52, ICD10: F51.04 - stop tramadol. Do urine tox and get controlled substance agreement. - TEMAZEPAM 30 MG CAPSULE Carlos Guadarrama MD CNOV Observed: 08/03/2017 Status: COMPLETED Source: [place] 9:00 AM [facility] REPOSITORY [facility] ALFIE HOGAN ([id number]) 1960 F Date Time Provider Department 08/03/17 9:00 AM CARLOS GUADARRAMA During your visit today, we recorded the following information about you: Pulse Respiration Blood pressure Weight 68/minute 20/minute 160/108 117.9 kg Carlos Guadarrama MD 08/03/2017 10:36 AM Signed Patient presents with: 6 Month Exam HPI: Patient presents today for office visit for follow up visit. Due for follow up. Did not get labs ordered in the fall. 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 Will get today. Denies side effects: No. Chest pain: No. Dyspnea: No. Edema: No. Palpitations: No. Syncope: No. Headache: No. Dizziness: No. Insomnia:OARRS website checked and validated. All prescriptions have been APPROPRIATELY filled. No suspicious activity was identified.- 08/03/2017 by Carlos Guadarrama MD. Now seeing Dr. Perry and receiving tramadol. Discussed risks of using benzos and opiates together. Explained our policy is using weaning and stopping one or the other. Is stopping tramadol. Did controlled substance agreement. Chronic pain: still on gabapentin. She is not happy with pain management. They want to do injections. Wants to be switch and see Dr. Alvarenga. HYPERLIPIDEMIA: Patient is taking medications: no, chiropractor convinced her to stop. Reviewed labs with her which are really bad. PSYCH: Currently tolerating medications well: Yes . Side effects: No. Sleep issues: With med.s . Energy changes: No. Current depression: No. Current anxiety: No. Suicidal ideation: No. GENNARO:switched to bipap. MEDICATIONS: Current Outpatient Prescriptions: temazepam (RESTORIL) 30 mg cap Take 1 capsule by mouth at bedtime as needed for up to 30 days. 15/ month. Do not refill more than monthly. lisinopril (PRINIVIL) 10 mg tablet Take 1 tablet by mouth once daily. gabapentin (NEURONTIN) 300 mg capsule One po at hs for one week then increase to one po bid. atorvastatin (LIPITOR) 40 mg tablet Take 1 tablet by mouth daily at bedtime. For cholesterol. sertraline (ZOLOFT) 100 mg tablet Take 2 tablets by mouth once daily. CPAP Mask (per patient preference) optional chin strap (if indicated) , filters, tubing, humidifier and lifetime supplies. Dx 327.23. albuterol HFA (VENTOLIN HFA) 90 mcg/actuation inhaler Inhale 2 Puffs as instructed every 4 hours as needed for Wheezing/Shortness of Breath. MULTIVITAMIN (DAILY VITAMIN ORAL) Take 1 tablet by mouth once daily. No current facility-administered medications for this visit. ALLERGIES: ALLERGIES Allergen Reactions - Dust Other: See Comments sneezing - Penicillins - Percocet [Oxycodone* Itching - Seasonal Allergies Other: See Comments ragweed, cats, pollen cause sneezing and eyes watering PAST MEDICAL HISTORY Diagnosis Date - Abdominal pain, right lower quadrant - Acute gastritis without mention of hemorrhage - Acute renal failure (HCC) 2011 2012 episodes of Cr elevation - Arthritis, multiple joint involvement - Asthma - DDD (degenerative disc disease), lumbar - Depression with anxiety - Diaphragmatic hernia without mention of obstruction or gangrene - Dyspepsia and other specified disorders of function of stomach - Esophagitis, unspecified - Hyperlipidemia 11/28/2011 - Hypertension - GENNARO (obstructive sleep apnea) on CPAP - Other and unspecified ovarian cyst Ovarian cyst - Phlebitis and thrombophlebitis of unspecified site - Tobacco use disorder - Urinary calculus, unspecified Renal stones PAST SURGICAL HISTORY Procedure Laterality Date - COLONOSCOP W/ OR W/O [facility] SPEC 09/15/2005 [facility] Colonoscopy - EGD W/O [facility] SPECIMEN W/BX 08/30/06 - EGD W/O [facility] SPECIMEN W/BX 04/11/11 - LAP CHOLECYSTECT/CHOLANGIOGRAPHY 08/30/06 - OOPHORECTOMY, PART/TOTAL UNILAT/BILAT 2005 bilateral oophorectomy benign cysts, appendectomy - PAST SURGICAL HISTORY OF 2000?, 2009 ruptured disc L3-L4 repair; fusion - PAST SURGICAL HISTORY OF tendonectomy right elbow - PAST SURGICAL HISTORY OF 2008 left MEAGAN - PAST SURGICAL HISTORY OF 12/30/2014 right MEAGAN - REPAIR UMBILICAL LAURA,5+Y/O,REDUC grade 6 Hernia repair, umbilical ANDgt;5yr - VAGINAL HYSTERECTOMY adenomysis FAMILY HISTORY Problem Relation Age of Onset - Cancer Mother pancreatic - Cancer Maternal Grandmother stomach - Colon Cancer Paternal Grandmother - Hypertension Father - Colon Cancer Father 72 - Stroke Paternal Grandfather Social History Marital status: Spouse name: Nadia Years of education: Number of children: 2 Social History Main Topics Smoking status: Former Smoker Packs/day: 0.10 Years: 20.00 Types: Cigarettes Start date: 12/15/2009 Smokeless status: Never Used Comment: quit in 2009 Alcohol use: Yes 1.5 - 3.0 oz/week 1 - 2 Glasses of Wine (5oz) per week Drug use: No Sexual activity: Not Currently Reviewed current medications, allergies, past medical history, surgical history, family history and social history today. REVIEW OF SYSTEMS All other reviewed and negative other than HPI. HEALTH MAINTENANCE: Reviewed health maintenance issues today and recommended the following in detail. COLORECTAL CANCER SCREENING,SEE MODIFIER -recommended. MAMMOGRAM-recommended. VITALS: BP 160/108 Pulse 68 Resp 20 Wt 117.9 kg (260 lb) BMI 39.53 kg/m2 Last 4 Encounter Wt Readings: Date: Wt: 08/03/2017 117.9 kg (260 lb) 11/22/2016 115.7 kg (255 lb) 10/11/2016 112.5 kg (248 lb) 09/29/2016 104.3 kg (230 lb) PHYSICAL EXAMINATION: General appearance: Well appearing, alert, in no acute distress, well-hydrated, well nourished. Skin: Skin color, texture, turgor normal, no suspicious rashes or lesions Head: Normocephalic, no masses, lesions, tenderness or abnormalities Neck: Supple, no adenopathy; thyroid symmetric, normal size, no bruits Lungs: Lungs clear to auscultation. No wheezing, rhonchi, rales Heart: RRR without murmur, gallop, or rubs. No ectopy Abdomen: Normal abdominal exam, Abdomen soft, non-tender. Bowel sounds normal. No masses, organomegaly Extremities: No deformities, edema, skin discoloration, clubbing or cyanosis. Good capillary refill. PSYCH:Affect normal. Normal speech. Normal eye contact ASSESSMENT/PLAN: 1. GENNARO (obstructive sleep apnea) - ICD9: 327.23, ICD10: G47.33 (primary diagnosis) - continue treatment. 2. Depression with anxiety - ICD9: 300.4, ICD10: F41.8 - Continue current medications. Notify us if any difficulties are noted. 3. Asthma with acute exacerbation, unspecified asthma severity, unspecified whether persistent - ICD9: 493.92, ICD10: J45.901 - continue 4. DDD (degenerative disc disease), lumbar - ICD9: 722.52, ICD10: M51.36 - CONSULT TO PAIN MGT ANESTHESIA 5. Arthritis, multiple joint involvement - ICD9: 716.99, ICD10: M12.9 - see pain management. 6. Screening for colon cancer - ICD9: V76.51, ICD10: Z12.11 - declines colonscopy - FECAL OCCULT BLOOD TEST 7. Screening breast examination - ICD9: V76.10, ICD10: Z12.31 - Follow up for annual exam in one year. - ANTONIO SCREENING 8. Hyperlipidemia, unspecified hyperlipidemia type - ICD9: 272.4, ICD10: E78.5 - suboptimal control and - noncompliance - start meds. Get labs in six weeks. - COMP METABOLIC PANEL - LIPID PANEL BASIC - TSH BLD - T4 FREE/FREE THYROX 9. Primary osteoarthritis of right hip - ICD9: 715.15, ICD10: M16.11 - check vitamin d - VITAMIN D 25 HYDROXY 10. Chronic insomnia - ICD9: 780.52, ICD10: F51.04 - stop tramadol. Do urine tox and get controlled substance agreement. - TEMAZEPAM 30 MG CAPSULE Carlos Guadarrama MD Referring Provider: SELF [200] Allergies As of Date: 08/03/2017 Noted Allergy Reaction DUST 04/13/2014 14 - Other: See Comments Comments: sneezing PENICILLINS 09/13/2005 PERCOCET (OXYCODONE-ACETAMINOPHEN)01/13/2015 9 - Itching SEASONAL ALLERGIES 04/13/2014 14 - Other: See Comments Comments: ragweed, cats, pollen cause sneezing and eyes watering Date Reviewed: 08/03/2017 Reviewed by: Airam Lang Ma - Fully Assessed Reason for Visit: 6 Month Exam [189] Primary Visit Diagnosis:GENNARO (obstructive sleep apnea) [G47.33] Other Visit Diagnoses:Depression with anxiety [F41.8] Asthma with acute exacerbation, unspecified asthma severity, unspecified whether persistent [J45.901] DDD (degenerative disc disease), lumbar [M51.36] Arthritis, multiple joint involvement [M12.9] Screening for colon cancer [Z12.11] Screening breast examination [Z12.31] Hyperlipidemia, unspecified hyperlipidemia type [E78.5] Primary osteoarthritis of right hip [M16.11] Chronic insomnia [F51.04] Order(s):CONSULT TO PAIN MGT ANESTHESIA [19990909] Order #: [id number]: 1 FECAL OCCULT BLOOD TEST [SQIFOBT] Order #: [id number] FUTURE ANTONIO SCREENING [3622545] Order #: [id number] FUTURE COMP METABOLIC PANEL [SQCMP] Order #: [id number] FUTURE LIPID PANEL BASIC [SQLIPB] Order #: [id number] FUTURE TSH BLD [SQTSH] Order #: [id number] FUTURE T4 FREE/FREE THYROX [SQFT4] Order #: [id number] FUTURE VITAMIN D 25 HYDROXY [SQVITD] Order #: [id number] FUTURE temazepam (RESTORIL) 30 mg capTake 1 capsule by mouth at bedtime as needed for up to 30 days. 15/ month. Do not refill more than monthly.Disp: 15 capsuleRfl: 0 Prescriptions as of 08/03/2017 Sig: TEMAZEPAM 30 MG CAPSULE Take 1 capsule by mouth at be* LISINOPRIL 10 MG TABLET Take 1 tablet by mouth once d* GABAPENTIN 300 MG CAPSULE One po at hs for one week the* ATORVASTATIN 40 MG TABLET Take 1 tablet by mouth daily * SERTRALINE 100 MG TABLET Take 2 tablets by mouth once * CPAP Mask (per patient preference)* ALBUTEROL SULFATE HFA 90 MCG/* Inhale 2 Puffs as instructed * DAILY VITAMIN ORAL Take 1 tablet by mouth once d* Problem List As Of Date 08/03/2017 Noted Resolved CHOLECYSTITIS SEE ALSO GALLBLADDER CHRONIC [K*INVALID FOR*12/15/2014 Diaphragmatic hernia without mention of obstruc*INVALID FOR* Acute gastritis without mention of hemorrhage [*INVALID FOR*12/15/2014 Esophagitis, unspecified [K20.9] INVALID FOR*12/15/2014 Dyspepsia and other specified disorders of func*INVALID FOR*12/15/2014 Hypertension [I10] 12/15/2014 Tobacco use disorder [F17.200] 12/15/2014 GENNARO (obstructive sleep apnea) [G47.33] More... Arthritis, multiple joint involvement [M12.9] Asthma [J45.909] Depression with anxiety [F41.8] Hyperlipidemia [E78.5] INVALID FOR*12/15/2014 Right groin pain [R10.31] INVALID FOR*11/22/2016 Acute right hip pain [M25.551] INVALID FOR*11/22/2016 DDD (degenerative disc disease), lumbar [M51.36] Acute renal failure (HCC) [N17.9] 11/22/2016 More... Lumbar scoliosis [M41.9] INVALID FOR* Primary osteoarthritis of right hip [M16.11] INVALID FOR* History of right hip replacement [Z96.641] INVALID FOR* History of kidney injury [Z87.828] INVALID FOR* More... Chronic insomnia [F51.04] INVALID FOR* More... Prescriptions ordered this encounter Disp Refills Start End TEMAZEPAM 30 MG CAPSULE 15 c* 0 08/03/2017 09/02/2017 Class: Print RX Route: ORAL Sig: Take 1 capsule by mouth at bedtime as needed for up to 30 days. 15/ month. Do not refill more than monthly. Medications Discontinued During This Encounter temazepam (RESTORIL) 30 mg cap 15 c* 0 08/02/2017 08/03/2017 Class: Print RX Route: ORAL Sig: Take 1 capsule by mouth at bedtime as needed for up to 30 days. 15/ month. Do not refill more than monthly. Disc: Reason for discontinue is not on file. Letter Text [facility] Controlled Substance Agreement Purpose The purpose of this agreement is to prevent misunderstandings about certain medicines you will be taking for pain management. It will help both you and your doctor to comply with laws regarding controlled pharmaceuticals. I understand that this agreement is essential to the trust and confidence necessary in a doctor/patient relationship and that my doctor undertakes to treat me based on this agreement. AGREEMENT I, Alfie Hogan, understand that if I break this agreement, my doctor will stop prescribing these pain-control medicines. In this case, my doctor will taper off the medicine over a period of several days, as necessary, to avoid withdrawal symptoms. A drug-dependence treatment program may be recommended. In certain cases, you may be terminated as a patient. I will communicate fully with my doctor about the character and intensity of my pain, its effect on my daily life, and how well the medicine is helping to relieve the pain. I will not use any illegal controlled substances, including marijuana, cocaine, etc. Random urine and/or serum toxicology screens may be requested; this testing may be unannounced and occur at any time. I agree that I will submit to a blood or urine test if requested by my doctor to determine my compliance with my program of pain control medicine. I will not share, sell or trade my medication with anyone. I will not attempt to obtain any controlled substance from any other doctor, other than a covering physician. I will safeguard my pain medicine from loss or theft. Lost or stolen medicines may not be replaced. I agree that refills of my prescriptions for pain medicine will be made only at the time of an office visit or during regular office hours. No refills will be available on evenings or weekends. I authorize the doctor and my pharmacy to cooperate fully with any city, state or federal law enforcement agency, including [facility] state's Board of Pharmacy, in the investigation of any possible misuse, sale, or other diversion of my medication. I authorize my doctor to provide a copy of this Agreement to my pharmacy. I agree to waive any applicable privilege or right of privacy or confidentiality with respect to these authorizations. I agree that I will use my medicine at a rate no greater than the prescribed rate and that use of my medicine at a greater rate may result in my being without medication for a period of time. If legal authorities have questions concerning treatment, for example, if a patient were obtaining medications at several pharmacies, all confidentiality is waived and the authorities may be given full access to the [facility] Records of narcotic administration. I agree to follow these guidelines and they have been fully explained to me. All of my questions and concerns regarding treatment have been answered. A copy of this document has been given to me. Pharmacy: Location: Phone number: Patient: Date: August 03, 2017 Alfie Hogan [id number] Physician: Date: August 03, 2017 Carlos Guadarrama MD Information regarding Controlled Substance Prescriptions: Please read carefully. Strong pain medications such as Tramadol, Narcotic analgesics are helpful to control a severe pain when it is difficult to control with simple pain medications, but they can cause problems if taken for too long. The goal of treatment is to control the pain to a level where you will be able to function. 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 Some people receive prolonged benefit and others do not. Some may actually have an increase in pain. There is also the risk of developing addiction or causing relapse of addiction. It is important that you know the side effects of these medications including: Excessive doses suppress breathing and may be fatal. This is especially true if the person is a child. Drowsiness and impaired concentration may create danger with driving or operating machinery, especially shortly after dose increases. Some people describe lasting feelings of reduced alertness and concentration. Toxicity is much more likely if the drug is combined with tranquilizers or sedatives, so the user must never do this Constipation is most common. Stool softeners or other agents are then required. If these drugs are taken regularly during the latter months of , the child will probably be born physically dependent on them. Many deaths have occurred because of abuse of these medications, often by people other than those for whom they were prescribed, or because of combining them with other substances. Therefore, strict accountability is necessary. The following policies are agreed to by the treatment recipient. Selling or giving away this medication is against the law and may cause harm or to the person who receives it. Thus you must never give controlled substances to anyone else, even if he or she has the same symptoms as you. It is equally important that you secure your medications so that no one else can access them. Workers in the home, friends of children, and visitors can be expected to look through medicine cabinets and take drugs of abuse. Medications should not be left in sight in hotel rooms, unoccupied cars, etc. Should a child accidentally ingest one of your pills, obtain emergency medical care immediately. A good rule of thumb is not to put the medication any place you would not leave $1000 in bell. A small, inexpensive safe or lockable cabinet is a good idea. Because diverted / stolen opioids are causing an epidemic of deaths in the [place], lost or stolen medications will not be replaced. It is your responsibility to safeguard them. In addition [place] law requires certain procedures for the prescription of controlled substances which will be discussed. Encounter Status:Closed by CARLOS GUADARRAMA MD on 08/03/17 URINE DRUG SCREEN Collected: 06/25/2017 Status: F Source: [place] (CHRYSTAL) 4:16 PM [facility] REPOSITORY Order Comment: Comments: RUN LOWEST TEST List of Drugs Taken or Suspected? N TYPE CODE TESTS RESULT OUT OF RANGE REFERENCE UNITS LAB L505.0075 TO BE Normal CONFIRMED Result Comment: CONFIRMATORY TESTING FOR ALL POSITIVE URINE DRUG SCREEN RESULTS WILL ONLY BE SENT OUT UPON PHYSICIAN ORDER. VISTA Urine Drug Screen methods provide only preliminary analytical test results. A more specific alternate chemical method must be used in order to obtain a confirmed analytical result. Gas chromatography/mass spectrometery (GC/MS) is the preferred confirmatory method. Clinical consideration and professional judgement should be applied to any drug of abuse test result, particularly when preliminary positive results are used. URINE TCA TESTING MUST BE ORDERED SEPARATELY. USE TEST MNEMONIC: [facility] LAB L505.5005 VISTA UDS PH 7 Normal LAB L505.5015 <1000 ng/mL AMPHETAMINES Normal NEGATIVE LAB L505.5025 < 200 ng/mL BARBITIURATES Normal NEGATIVE LAB L505.5035 < 200 ng/mL BENZODIAZIPINE Normal NEGATIVE LAB L505.5045 < 300 ng/mL COCAINE Normal NEGATIVE LAB L505.5055 < 500 ng/mL ECSTACY Normal NEGATIVE LAB L505.5065 < 300 ng/mL METHADONE Normal NEGATIVE LAB L505.5075 < 300 ng/mL OPIATES Normal NEGATIVE LAB L505.5085 < 25 ng/mL PCP Normal NEGATIVE LAB L505.5095 < 50 ng/mL THC Normal NEGATIVE Performed By: #### L505.5000 #### [facility] [address] [place], [address] MISCELLANEOUS LAB Collected: 06/25/2017 Status: F Source: [place] PROCEDURE 4:16 PM [facility] REPOSITORY Order Comment: Comments: RUN LOWEST TEST Test(s) Ordered: [id number] TYPE CODE TESTS RESULT OUT OF RANGE REFERENCE UNITS LAB L801.1541 Normal [facility] LAB TEST Result Comment: [id number] 6+OXYCODONE-BUND (ng/mL) DRUG RESULT SCREEN CUTOFF ____ Amphetamines,Urine Negative ng/mL 1000 Amphetamine test includes Amphetamine and Methamphetamine. Barbiturates Negative ng/mL 200 Benzodiazepines Negative ng/mL 200 Cannabinoid Negative ng/mL 20 Cocaine (Metab) Negative ng/mL 300 Opiates Negative ng/mL 300 Opiates test includes Codeine, Morphine, Hydromorphone, Hydrocodone. Oxycodone/Oxymorphone,Urine Negative ng/mL 300 Test includes Oxydodone and Oxymorphone. TESTING PERFORMED AT [facility]. ORIGINAL REPORT ON FILE IN LAB CONTAINS ADDITIONAL TEST SITE INFORMATION. Performed By: #### L801.1541 #### [facility] [address] [place], [address] ALLERGIES ALLERGIES DATE TYPE / CODE NAME / CODE REACTION SEVERITY SOURCE Drug Penicillins/F0010 Unknown Unknown [place] 8 Allergy/[id number]( 19829(RXNORM) [facility]ly [facility] CT) Hospital Repository Miscellaneous DUST Unknown Unknown [place] Allergy/[id number]( [facility] CT) Hospital Repository Miscellaneous SEASONAL Unknown Unknown [place] 8 Allergy/321289171( Community SNOMED CT) Hospital Repository DRUG CAT HAIR OTHER: SEE C Rg 8 INGREDI/[id number]( STANDARDIZED Clinic Main SNOMED CT) ALLERGENIC [place] EXTRACT Repository DRUG/[id number](SNO OXYCODONE-ACETAMI ITCHING Rg [address]) NOPHEN [facility] Main [place] Repository Environ/[id number]( DUST OTHER: SEE C [place] [address]) Clinic Main [place] Repository Environ/[id number]( SEASONAL OTHER: SEE C [place] [address]) ALLERGIES Clinic Main [place] Repository Drug PENICILLINS [place] 6 Class/[id number](SN Clinic Main OMED CT) [place] Repository NG/[id number](SNOME CAT HAIR [facility] D CT) ST[facility]ARDIZED [facility] ALLERGENIC Repository EXTRACT NG/[id number](SNOME DUST [facility] D CT) Health System Repository NG/[id number](SNOME PENICILLINS [facility] D CT) Health System Repository NG/[id number](SNOME OXYCODONE-ACETAMI [facility] D CT) [facility] Repository NG/[id number](SNOME SEASONAL [facility] D CT) ALLERGIES Health System Repository ENCOUNTERS ENCOUNTERS ADMIT/DISCHARGE ACCOUNT NUMBER ADMITTING ENCOUNTER LOCATION SOURCE CLASS 05/13/2018 [id number] PREM TAM Ambulatory [facility] MEDICAL Repository CENTERBuildi ng:AKEND 05/03/2018 [id number] Ambulatory [facility] ding:HPRAD Repository 05/03/2018/05/03/20 [id number] Ambulatory BMSBuilding: [address] Repository 04/05/2018/04/08/20 [id number] Ambulatory [address] Main [place] Repository 01/17/2018/01/18/20 [id number] Emergency [address] ding:ED Repository 09/20/2017/09/21/19 [id number] Ambulatory [address] Repository 08/03/2017/08/07/19 [id number] Ambulatory [address] Repository 06/29/2017 [id number] [facility] ding:SL Repository 06/25/2017 [id number] Ambulatory [place] [facility] ding:LAB Repository PAYERS PAYERS ENCOUNTER GUARANTOR PAYER SUBSCRIBER SOURCE 05/13/2018 ALFIE S Primary ALFIE S [facility] WILLIAMSDOB: Insurance:MEDICARE WILLIAMSDOB: Health System APolicy Number: [id number] [facility] [id number] [place], [place] Date: [id number]: () 05/13/2018 Secondary ALFIE S [facility] Insurance:CIGNA WILLIAMSDOB: Health System OAPPolicy Number: [id number] Repository [id number] Date: 05/03/2018 Nadia Beck Primary ALFIE S [place] [id number] Insurance:CIGNAPolicy WILLIAMSDOB: [facility] Number: [id number] [id number] Repository [address]: [address]) Date:3368-01-89PH [phone] () [id number], [place] [address]HH: 05/03/2018 Secondary NOT GIVENUNK [place] Insurance:SELF PAY [facility] Number: Effective Repository Date:2018-05-03 05/03/2018 ALFIE S Primary ALFIE S [place] [id number] [facility] Number: [id number] [place], [place] [id number] Repository [address]: ([address]) Date:8663-20-81KK [phone] () [id number], [place] [address]KT: 05/03/2018 Secondary NOT GIVENUNK [place] Insurance:SELF PAY [facility] Number: Effective Repository Date:2018-05-03 01/17/2018 Nadia Beck Primary Nadia D [place] [id number] Insurance:ANTHEMPolic WilliamsDOB: [facility] Number: [id number], [place] [id number] Repository 13475Xyt: (330) Date:[id number] [phone] () [id number] VILLAGOMEZ 52421IE: 01/17/2018 Secondary NOT GIVENUNK Franco Insurance:SELF PAY [facility] Number: Effective Repository Date:2018-01-17 06/29/2017 Nadia D Primary Nadia D Weston [id number] W Insurance:ANTHEMPolic WilliamsD[facility] y Number: [id number], [place] [id number] Repository 69145Xio: (330) Date:[id number] [phone] () [id number] VILLAGOMEZ 16261MD: 06/29/2017 Secondary NOT GIVENUNK Weston Insurance:SELF PAY [facility] Number: Effective Repository Date:2017-06-14 06/25/2017 Nadia D Primary Nadia D Weston [id number] W Insurance:ANTHEMPolic WilliamsDOB: [facility] y Number: [id number] [place], [place] [id number] Repository 44448Apd: (330) Date:[id number] [phone] () [id number] VILLAGOMEZ 01606BH: 06/25/2017 Secondary NOT GIVENUNK Weston Insurance:SELF PAY [facility] Number: Effective Repository Date:2017-06-25
== END ==
PROVIDERS: Family Provider Family Medicine; PCP Family Medicine; Referring Provider Physician Assistant Medical; Visit Provider Physician Assistant Medical
DX: M79.662 Pain in left lower leg (principal)
CPT/HCPCS: 73590

== ENCOUNTER 2018-12-09 08:38 | Inpatient (IN) | payer OTHER, MEDICARE, SELFPAY ==
[2018-05-03 09:05] VITALS: BMI 39.9
[2018-12-09] VITALS (12 sets, daily range): BP systolic 99–150; BP diastolic 54–99; PULSE 88–107; RESP 15–24; TEMP 36.7–37.2; O2SAT 96–100; BMI 43.2; BMI 43.5; BMI 43.6
--- NOTE | 2018-12-09 08:51 | RAD_ITS ---
STUDY: X-RAY CHEST REASON FOR EXAM: Female, 58 years old. Cough and wheezing. TECHNIQUE: PA and lateral views of the chest. COMPARISON: None. FINDINGS: EKG electrodes are seen. Elevation of the right hemidiaphragm. Scattered calcified granulomas. There is no demonstrated pleural abnormality. There is borderline cardiomegaly. Normal mediastinum and myriam. Normal visualized pulmonary arteries. There is atherosclerotic tortuosity of the aortic arch and descending thoracic aorta. There is a dextroscoliosis of the thoracic spine. Normal visualized ribs, clavicles, and shoulders. There is no demonstrated abnormality of the visualized soft tissue structures of the upper abdomen. RAD/Chest PA and Lateral IMPRESSION: No acute abnormality is seen. Electronically Signed: Kamran Velazquez, at 10:48 EDT , Service support ,
--- NOTE | 2018-12-09 08:51 | CT_ITS ---
STUDY: CT ABDOMEN AND PELVIS WITH CONTRAST REASON FOR EXAM: Female, 58 years old. 3 day history of abdominal pain. Black stools. RADIATION DOSAGE (If Supplied By Facility): CTDIvol = ( 25.17 ) mGy, DLP = ( 1824.00 ) mGycm TECHNIQUE: Transaxial images were obtained from the dome of the diaphragm to the symphysis pubis without oral contrast. 100 IV Isovue 300 was administered. Sagittal and coronal images were reconstructed. Individualized dose optimization techniques were used for this CT. COMPARISON: None. FINDINGS: Increased markings at the right lung base suggestive of atelectasis. The visualized portions of the heart are within normal limits. There is decreased attenuation of the liver consistent with steatosis. The patient is status post cholecystectomy. There is mild splenomegaly. Normal pancreas. Normal bilateral adrenal glands. 1 cm cyst in the lateral aspect of the right mid kidney. Normal left kidney. There is a small hiatal hernia. Normal small intestine. Diffuse circumferential wall thickening of the right; with increased markings in the surrounding fat suggestive of colitis. There are surgical clips in the region of the appendix consistent with a prior appendectomy. There is diffuse atherosclerotic calcification of the abdominal aorta, without a demonstrated aneurysm. Normal inferior vena cava. Normal retroperitoneum. Normal urinary bladder. There is absence of the uterus consistent with a prior hysterectomy. Normal abdominal wall. There are diffuse degenerative changes of the visualized lumbar spine. Levoscoliosis. Status post bilateral hip replacements causing beam hardening artifacts with limited visualization of the pelvis. CT/Abdomen/Pelvis W IV Cont ONLY IMPRESSION: Fatty infiltration of the liver. Findings suggestive of colitis of the descending colon. Status post cholecystectomy, appendectomy and hysterectomy. Electronically Signed: Kamran Velazquez, at 10:52 EDT , Service support ,
--- NOTE | 2018-12-09 08:51 | EKG12_ITS ---
Test Reason : SOB Blood Pressure : / mmHG Vent. Rate : 100 BPM Atrial Rate : 100 BPM P-R Int : 142 ms QRS Dur : 122 ms QT Int : 392 ms P-R-T Axes : 032 093 -04 degrees QTc Int : 505 ms Normal sinus rhythm Right bundle branch block T wave abnormality, consider inferior ischemia Abnormal ECG Confirmed by RADHA CLINTON, MG ([id number]), newspaper copy editor NAVYA CLAY ([id number]) on 12/10/2018 1:41:29 PM Referred By: Blayne Santana Confirmed By:MG GARCIA MD
--- NOTE | 2018-12-09 08:52 | ED.DCSUM_ITS ---
History of Present Illness Chief Complaint: Abd Pain Informant: Patient Onset: Days - Past 3 days Context: Sudden Onset Timing: Continuous Quality: Pain bilaterally predominantly lower quadrants Location: Predominantly lower quadrants Current Severity: Mild Maximum Severity: Severe Worsened by: Coughing, walking and turning in bed Relieved by: Nothing Associated Symptoms: Cough, shortness of breath and dyspnea on exertion, dark stool Narrative: Patient is a middle-age woman who presents because of abdominal pain and bruising. She is on no anticoagulant or antiplatelet medication. She believes her stool is black. She states she has chronic abdominal pain. The abdominal pain is been worse the past 3 days. She denies history of diverticulosis diverticulitis. She was scheduled to have colonoscopy May of last year; however, she fell broke her leg and the colonoscopy was canceled. She denies fever but does report shaking chills. She does report wheezing and cough for the past 3 days. She is a former smoker. She does not have history of COPD. She does complain of dyspnea on exertion. She denies orthopnea or PND. She does have history of obstructive sleep apnea and states she uses her CPAP machine nightly. She has not noted any increased swelling of her lower extremities. She does report nasal congestion. She denies earache or sore throat. 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 Prior similar symptoms: No Recent Illness/Hospitalization: No - Past Medical History (1) Gastroesophageal reflux disease Status: Chronic (2) Hypertension Status: Chronic Past Medical History - Allergies and Home Meds Allergies/Adverse Reactions: Allergies Penicillins Allergy (Verified 05/03/18 09:06) Unknown DUST Allergy (Uncoded 05/03/18 09:06) Unknown SEASONAL Allergy (Uncoded 05/03/18 09:06) Unknown Primary Care Physician: Karl Moran MD [Primary Care Provider] - Prior records reviewed: Yes Surgical History: adenoidectomy, appendectomy, cholecystectomy, herniorrhaphy, hysterectomy Lives: Spouse/ Significant Other Smoking Status: Former smoker Alcohol: None Drugs: None Review of Systems General: Reports: Chills, Malaise, Sweats. Denies: Fever, Subjective, Weight loss Eyes: Denies: Visual changes - bilaterally, Diplopia ENT: Denies: Rhinorrhea, Sore throat Cardiovascular: Denies: Chest pain, Palpitations Respiratory: Reports: Dyspnea, Cough, Dyspnea on exertion. Denies: Sputum, Orthopnea, Paroxysmal nocturnal dyspnea Gastrointestinal: Reports: Abdominal pain, Nausea, Melena. Denies: Vomiting, Diarrhea, Constipation, Hematochezia Genitourinary: Denies: Dysuria, Hematuria, Frequency Musculoskeletal: Denies: Myalgias, Arthralgias, Neck pain, Back pain, Extremity Pain Skin: Denies: Rash, Wounds Neurological: Denies: Headache, Weakness, Numbness Psych: Reports: Depression, Anxiety Endocrine: Denies: Polyuria, Polydipsia Hematologic: Reports: Easy bruising. Denies: Easy bleeding Physical Exam Vital Signs/Narrative: Vital Signs Temp Pulse Resp BP Pulse Ox 12/09/18 08:39 98.9 F 107 H 18 150/99 H 98 Inital Vital Signs reviewed: Yes Cardiovascular: Regular rhythm, No murmurs, Normal S1, Normal S2, Tachycardia Respiratory: Chest nontender, Wheezing, Decreased Air Movement, - - Unable to determine if patient's expiratory wheezing is supraglottic versus lungs. Combination Abdomen: No masses, Tender, Guarding, Rebound tenderness, Hypoactive bowel sounds. Negative for: Soft, Nontender, Nondistended, Normal bowel sounds, Hepatomegaly, Splenomegaly, Mass Rectal: - - Stool is dark green. There is no active bleeding noted. There is no fissures or fistulas noted. There is evidence of prior hemorrhoids. Back: Nontender, Normal Inspection. Negative for: CVA tenderness, Spinal tenderness Extremities: Nontender, No edema Skin: Normal color, No rash, - - Multiple bruises are noted anterior abdominal wall and lower extremities. Negative for: Cyanosis, Diaphoresis, Jaundice Neurological: Alert, Oriented x3, Cranial nerves II-XII grossly intact, Normal Strength, Normal Sensation Psychological: Tearful - Patient is very anxious and excitable. Diagnostic/Tx/Re-eval Chest X-Ray - ED: 2 View, Read by ED Physician Film is slightly rotated. Unable to determine if there is mild scoliosis. Cardiac silhouette is unremarkable. Mediastinum appears normal. There is mild increased interstitial markings noted. No abnormality of any osseous structures other than possible scoliosis versus rotation. Awaiting read by radiologist for x-ray and abdomen. Review of abdominal CAT scan reveals no evidence of infiltrate in the lower lobes. Liver and spleen appear normal. Kidneys appear normal. There is no obvious inflammatory changes noted. Impressions Abdomen/Pelvis CT 12/09/18 08:51 IMPRESSION: Fatty infiltration of the liver. Findings suggestive of colitis of the descending colon. Status post cholecystectomy, appendectomy and hysterectomy. Electronically Signed: Kamran Velazquez, at 10:52 EDT , Service support , Chest X-Ray 12/09/18 08:51 IMPRESSION: No acute abnormality is seen. Electronically Signed: Kamran Velazquez, at 10:48 EDT , Service support , 12/09/18 08:51 Abdomen/Pelvis W IV Cont ONLY [CT] Stat Chest PA and Lateral [RAD] Stat 12/09/18 08:52 Stool Stool Occult Blood (MADELEINE) - Final Occult Blood Positive Laboratory Results 12/09/18 12/09/18 12/09/18 09:09 09:09 09:09 WBC 3.5 L RBC 4.12 L Hgb 12.4 Hct 39.1 MCV 94.9 MCH 30.1 MCHC 31.7 L RDW 16.8 H RDW Differential 57.6 H Plt Count 105 L MPV 9.9 Immature Gran % (Auto) 0.300 Neut % (Auto) 66.2 Lymph % (Auto) 25.1 [place] % (Auto) 7.2 Eos % (Auto) 0.9 Baso % (Auto) 0.3 Absolute Neuts (auto) 2.3 Absolute Lymphs (auto) 0.87 Total Counted Not Reportable PT INR APTT Specimen Type Sample Site pH Bicarbonate Actual POC Total CO2 Base Excess O2 Saturation ABG pCO2 ABG pO2 Arian Test O2 Delivery Device Liter Flow Blood Gas Notified Whom Blood Gas Notified Time Sodium 140 Potassium 4.3 Chloride 106 Carbon Dioxide 26.0 Anion Gap 8 BUN 16 Creatinine 1.17 H Estim Creat Clear Calc 53.52 Est GFR (MDRD) Af Amer 61 Est GFR (MDRD) Non-Af 51 L BUN/Creatinine Ratio 13.7 Glucose 106 Lactic Acid 1.2 Calcium 8.8 Total Bilirubin 0.80 AST 33 ALT 30 Alkaline Phosphatase 88 Troponin I < 0.015 Total Protein 6.6 Albumin 3.3 Globulin 3.3 Albumin/Globulin Ratio 1.0 12/09/18 12/09/18 09:09 09:37 WBC RBC Hgb Hct MCV MCH MCHC RDW RDW Differential Plt Count MPV Immature Gran % (Auto) Neut % (Auto) Lymph % (Auto) [place] % (Auto) Eos % (Auto) Baso % (Auto) Absolute Neuts (auto) Absolute Lymphs (auto) Total Counted PT 12.9 INR 1.0 APTT 27.7 Specimen Type ART Sample Site R Radial pH 7.35 Bicarbonate Actual 24.8 POC Total CO2 26 Base Excess -1 O2 Saturation 93 L ABG pCO2 44.5 ABG pO2 72 L Arian Test POS O2 Delivery Device Nasal Can Liter Flow 3.0 Blood Gas Notified Whom ED MD Blood Gas Notified Time 930 Sodium Potassium Chloride Carbon Dioxide Anion Gap BUN Creatinine Estim Creat Clear Calc Est GFR (MDRD) Af Amer Est GFR (MDRD) Non-Af BUN/Creatinine Ratio Glucose Lactic Acid Calcium Total Bilirubin AST ALT Alkaline Phosphatase Troponin I Total Protein Albumin Globulin Albumin/Globulin Ratio - EKG Initial EKG Interpretation: Sinus Rhythm - Ventricular rate is 100. ND interval is 142 ms. QRS durations 122 ms and is consistent with a right bundle branch block. The right bundle branch block is new since May 19, 2018. Computer is reading T wave abnormalities consider inferior ischemia. The T wave abnormality secondary to the right bundle branch block. QT intervals 392 ms. Mullin is to the right. - Medical Decision Making Patient with black stool per history. Stool is dark. Stool is not black or maroon color. Stool for occult blood was ordered. Patient does have peritoneal findings. Will obtain CT of the abdomen to evaluate for appendicitis, ruptured, diverticulitis or other causes for peritonitis. Since patient is hypoxic with wheezing chest x-ray was obtained to evaluate for pneumonia. ABG was obtained to assess acid-base status, PaO2 and PCO2 especially since patient has history of obstructive sleep apnea and unable to determine whether her extra Tory wheezing is from the upper airway versus lower airway. She was treated with DuoNeb and albuterol. ABG reveals an increased AA gradient. Patient is on 3 L with a pH of 7.35, PCO2 of 44.5, PaO2 of 72, base excess -1, bicarb 24.8 with a O2 saturation of 93%. White count is 3.5 thousand with platelet count 105,000. Since platelet count is great 100,000 we will obtain PT/INR and PTT to rule out coagulopathy. Since there is evidence of colitis we will treat with ciprofloxacin and metronidazole. This may represent ischemic colitis. Since chest x-ray reveals no abnormality in the lower lung akbar are normal on the CT of the abdomen need to consider pulmonary embolus as cause of her hypoxia versus respiratory infection/COPD with bronchospasm. Since patient has a GI bleed she is not a candidate for anticoagulation. Dr. Hernandez was paged and made aware of patient. Will page hospitalist for admission. ED Disposition - Plan for ED Patient: Disposition: Acute Care [facility] [place] Diagnosis: Colitis with rectal bleeding, Respiratory failure with hypoxia Referrals: Karl Moran MD [Primary Care Provider] -
[2018-12-09] MEDS: Ipratropium/Albuterol Sulfate 3 ML AMPUL.NEB INHALATION (09:02)
[2018-12-09] MEDS: Albuterol 2.5 MG/3 ML VIAL.NEB. INHALATION ×2 (09:06→09:42)
[2018-12-09 09:17] LABS: Absolute Lymphocyte Count 0.87 X10^3/ul (0.83-4.51); Absolute Neutrophil Count 2.3 X10^3/uL (2.0-7.7); Basophil# 0.01 X10^3/uL; Basophil% 0.3 % (0-1); Eosinophil# 0.03 X10^3/uL; Eosinophils% 0.9 % (0-5); Hematocrit 39.1 % (37-47); Hemoglobin 12.4 g/dl (12.0-15.0); Lymphocyte # 0.87 X10^3/ul (4.0); Lymphocyte % 25.1 % (19-41); Mean Corp Hgb Conc 31.7 g/gl (32-36); Mean Corpuscular Hgb 30.1 pg (27.0-32.0); Mean Corpuscular Volume 94.9 fL (81-99); Mean Platelet Vol. 9.9 fl (6.2-12.0); Monocyte# 0.25 X10^3/uL; Monocyte% 7.2 % (0-10); Neutrophil # 2.29 X10^3/uL (2.7-7.7); Neutrophil % 66.2 % (47-70); Platelet Count 105 K/mm3 (150-450); RBC Distribution Width CV 16.8 % (11.6-14.6); RBC Distribution Width SD 57.6 fl (35.1-43.9); Red Blood Count 4.12 M/mm3 (4.2-5.4); White Blood Count 3.5 K/mm3 (4.4-11.0)
[2018-12-09 09:21] LABS: POSITIVE COUNT NO; POSITIVE DIFFERENTIAL NO; POSITIVE MORPHOLOGY NO
[2018-12-09] MEDS: LORazepam 2 MG/ML Syringe 0.5 MG IV (09:26)
[2018-12-09 09:37] LABS: AST(SGOT) 33 U/L (15-37); Alanine Aminotransfer ALT/SGPT 30 U/L (13-56); Albumin, Serum 3.3 g/dL (3.2-5.0); Alkaline Phosphatase 88 U/L (45-117); Anion Gap 8 (5-15); BUN 16 mg/dL (7-18); BUN/Creat Ratio 13.7 RATIO (10-20); Calcium,Total 8.8 mg/dL (8.5-10.1); Chloride 106 mmol/L (98-107); Creatinine, Serum 1.17 mg/dL (0.55-1.02); EST Glomerular Filtration Rate 51 mL/min (>60); Est Glom Filt Rate - Afr Amer 61 mL/min (>60); Estimated Creatinine Clearance 53.52 ml/min; Globulin 3.3 g/dL (2.2-4.2); Glucose 106 mg/dL (74-106); Potassium 4.3 mmol/L (3.5-5.1); Protein, Total 6.6 g/dL (6.4-8.2); Sodium Level 140 mmol/L (136-145)
[2018-12-09 09:40] LABS: Allen Test POS; Base Excess -1 mmol/L (-2 to +2); Bicarbonate 24.8 mmol/L (22-26); Blood Gas Specimen Type ART; O2 Delivery Device Nasal Can; PO2 72 mmHG (75-100); SITE R Radial; SO2 93 % (95-99); Time Given 930; Total Carbon Dioxide 26 mmol/L; pCO2 44.5 mmHg (35-45); pH 7.35 (7.35-7.45)
[2018-12-09 09:50] LABS: Lactic Acid 1.2 mmol/L (0.4-2.0)
[2018-12-09 10:00] LABS: Prothrombin Time (Protime)PT. 12.9 SECONDS (11.7-14.9)
[2018-12-09 10:01] LABS: Partial Thromboplast Time 27.7 Seconds (24.1-36.2)
[2018-12-09] MEDS: 0.9% Normal Saline 1,000 ML 1000 ML IV (11:10)
[2018-12-09] MEDS: Ciprofloxacin 400 MG/200 ML BAG 200 MG IV ×2 (11:23→21:36)
--- NOTE | 2018-12-09 12:18 | CASEMGMT ---
RN CM Assessment Introduced role of RN CM to patient.? Patient is alert, oriented and able?to participate in RN CM Assessment. ?Care providers, pharmacy, and demographics verified. Presentation: Chronic Abd Pain but worse the past 3 days, Bruising, believes stool is black Admit Dx: Re-Admit: No Barriers/Issues: None PCP: Karl Moran Specialists: None Preferred [facility]acy: [facility] Insurance: MMO, MCR A Rx Benefit:?Not sure. States that her has switched jobs and that MMO just became effective december 02, 2018. States that her normal meds do not cost much so denies any issues. LNOK: Seth Felder LW/HPOA: States know she has a LW and thinks she has a HPOA, states paperwork is in the car and will have to check and plans to bring in to place on file. States if has a HPOA it would be her Seth Felder. Living Arrangements:?Lives with her in a SS home, 3 steps to enter ADL?s: Independent with ambulation and ADLs. States sometimes will wait until is home tyo shower for sense of security. Transportation: Patient drives, drove self to hospital, plans on driving on [place]. If unable to drive states her or siblings can drive DME: [employer]- [employer], [employer], [employer], [employer] HHC: Past-had PT. SNF: None Goal: Home, does not think will have any needs. Denies any questions/concerns. Aware CM remains available for any emerging needs. DC PLAN: Home with no anticipated needs identified at this time. LEANA Zamudio
[2018-12-09] MEDS: metroNIDAZOLE 500 MG/100 ML BAG 100 MG IV ×2 (13:15→20:00)
--- NOTE | 2018-12-09 13:21 | HP.PCM_ITS ---
Problem List (1) Respiratory insufficiency Status: Acute (2) Sepsis Status: Acute (3) Colitis with rectal bleeding Status: Acute History of Present Illness Date of Admission: 12/09/18 Chief Complaint: abdominal pain The patient is a 58 year old F with a 3-day history of abdominal pain. Patient describes the pain as diffuse. Se states that she has been drinking but urine is geo-colored. Presented to the emergency room patient was noted to be hypoxic around 83% and put on room air. Patient did develop a drop in her blood pressure into the 90s and did receive IV fluids which did improve her blood pressure thereafter. Patient had a CAT scan that showed descending colitis. Patient received ciprofloxacin and metronidazole. Patient has never had colitis previously. Patient was heme positive in the emergency room and Dr. Humphries, of general surgery, was contacted and consulted directly through the emergency room. Past Medical History Past Medical History (Chronic Problems): Chronic Problems (Last Reviewed 05/03/18 @ 09:04 by Corrie Ho) Hypertension (Chronic) Gastroesophageal reflux disease (Chronic) Medical History: Medical History (Last Updated 12/09/18 @ 13:23 by Blayne Santana DO) Anxiety F41.9 Arthritis M19.90 History of diarrhea Z87.898 History of umbilical hernia Z87.19 Hypertension I10 Allergies Penicillins Allergy (Verified 05/03/18 09:06) Unknown DUST Allergy (Uncoded 05/03/18 09:06) Unknown SEASONAL Allergy (Uncoded 05/03/18 09:06) Unknown Home Medications: Ambulatory Orders Medication Instructions Recorded Lisinopril [Zestril] 10 mg PO DAILY 03/05/17 Temazepam [Restoril] 30 mg PO QHS PRN PRN 01/17/18 Albuterol Inhaler [Ventolin Hfa 1 - 2 puff INHALATION Q4H PRN PRN 12/09/18 (SP)] Pantoprazole Sodium [Protonix] 40 mg PO DAILY 12/09/18 Rosuvastatin Calcium 40 mg PO QHS 12/09/18 Surgical History: Surgical History (Last Updated 05/03/18 @ 09:04 by Corrie Ho) History of appendectomy Z90.49 History of cholecystectomy Z90.49 History of hysterectomy Z90.710 History of tubal ligation Z98.51 Surgical History: adenoidectomy, appendectomy, cholecystectomy, herniorrhaphy, hysterectomy Lives: Spouse/ Significant Other Smoking Status: Former smoker Alcohol: None Drugs: None - *Family History Maternal History Items: - - pancreatic cancer Review of Systems Constitutional: Reports: Chills, Malaise. Denies: Anorexia, Fever, Night Sweats Eyes: Denies: Blurred vision, Double vision HEENT: Reports: - - Plan of sores in her mouth and under her tongue.. Denies: Head Aches, Sinus Congestion, Sinus Drainage Cardiovascular: Denies: Chest Pain, Palpitations Respiratory: Reports: Shortness of Breath. Denies: Cough, Sputum production Gastrointestinal: Reports: Abdominal Pain, Nausea. Denies: Constipation, Diarrhea, Hematochezia, Vomiting Genitourinary: Reports: - - geo colored urine. Denies: Dysuria Musculoskeletal: Denies: Joint Pain, Joint Tenderness Skin: Denies: Rash, Wounds Neurological: Denies: Numbness, Tingling, Focal weakness Psychiatric: Reports: Anxiety. Denies: Depression Hematologic/ Lymphatic: Reports: Easy Bruising, Hx of blood clot - SVTs. Denies: Easy Bleeding Comment: A 10 point review of systems were negative except as mentioned in the history of present illness and the other review of systems. VTE Information - Inpt Only VTE Present on Admission: No VTE Mechan Device Prophylaxis: SCD's VTE Pharm Prophylaxis ordered?: No Reason prophylaxis not ordered:: Medical Contraindication Patient Problems: Active and Suspected Problems (Last Reviewed 05/03/18 @ 09:04 by Corrie Ho) Colitis with rectal bleeding (Acute) Respiratory failure with hypoxia (Acute) Respiratory insufficiency (Acute) Sepsis (Acute) - Physical Exam General: Alert, Cooperative, No apparent distress HEENT: Atraumatic, Normocephalic Oral: Moist Mucosa, No Gingival or Mucosal Lesions/ Ulcerations Neck: No Nodes, Thyroid Normal Size and Texture Lungs: Clear to auscultation, Normal air movement, No rhonchi, No wheeze, No rales Cardiovascular: Regular rate, Regular Rhythm, Normal S1, Normal S2, No murmurs Abdomen: Bowel Sounds Present, No Hepato-splenomegaly, Distended, Tender Extremities: No edema, No Calf Tenderness Skin: No rashes, No breakdown Musculoskeletal: No Tenderness to Palpation of Joints or Extremities, No Muscle Wasting Neurological: Deep Tendon Reflexes 2+/4 and Symmetrical, Neuro grossly intact, - - No clonus Psych/Mental Status: Agitated, Anxious Vital Signs Temp Pulse Resp BP Pulse Ox 36.9 C 96 17 103/63 96 12/09/18 11:35 12/09/18 11:57 12/09/18 11:57 12/09/18 11:57 12/09/18 11:57 Oxygen Flow Rate (L/min) 3 Oxygen Delivery Method Nasal Cannula Weight: 130 kg Body Mass Index (BMI) 43.5 Microbiology Past 72 Hours 12/09/18 08:52 Stool Occult Blood (MADELEINE) - Final Stool Occult Blood Positive Laboratory Tests Past 24 Hrs 12/09/18 12/09/18 12/09/18 09:09 09:09 09:09 WBC 3.5 L RBC 4.12 L Hgb 12.4 Hct 39.1 MCV 94.9 MCH 30.1 MCHC 31.7 L RDW 16.8 H RDW Differential 57.6 H Plt Count 105 L MPV 9.9 Immature Gran % (Auto) 0.300 Neut % (Auto) 66.2 Lymph % (Auto) 25.1 [place] % (Auto) 7.2 Eos % (Auto) 0.9 Baso % (Auto) 0.3 Absolute Neuts (auto) 2.3 Absolute Lymphs (auto) 0.87 Total Counted Not Reportable PT INR APTT Specimen Type Sample Site pH Bicarbonate Actual POC Total CO2 Base Excess O2 Saturation ABG pCO2 ABG pO2 Arian Test O2 Delivery Device Liter Flow Blood Gas Notified Whom Blood Gas Notified Time Sodium 140 Potassium 4.3 Chloride 106 Carbon Dioxide 26.0 Anion Gap 8 BUN 16 Creatinine 1.17 H Estim Creat Clear Calc 53.52 Est GFR (MDRD) Af Amer 61 Est GFR (MDRD) Non-Af 51 L BUN/Creatinine Ratio 13.7 Glucose 106 Lactic Acid 1.2 Calcium 8.8 Total Bilirubin 0.80 AST 33 ALT 30 Alkaline Phosphatase 88 Troponin I < 0.015 Total Protein 6.6 Albumin 3.3 Globulin 3.3 Albumin/Globulin Ratio 1.0 12/09/18 12/09/18 09:09 09:37 WBC RBC Hgb Hct MCV MCH MCHC RDW RDW Differential Plt Count MPV Immature Gran % (Auto) Neut % (Auto) Lymph % (Auto) [place] % (Auto) Eos % (Auto) Baso % (Auto) Absolute Neuts (auto) Absolute Lymphs (auto) Total Counted PT 12.9 INR 1.0 APTT 27.7 Specimen Type ART Sample Site R Radial pH 7.35 Bicarbonate Actual 24.8 POC Total CO2 26 Base Excess -1 O2 Saturation 93 L ABG pCO2 44.5 ABG pO2 72 L Arian Test POS O2 Delivery Device Nasal Can Liter Flow 3.0 Blood Gas Notified Whom ED Blood Gas Notified Time 930 Sodium Potassium Chloride Carbon Dioxide Anion Gap BUN Creatinine Estim Creat Clear Calc Est GFR (MDRD) Af Amer Est GFR (MDRD) Non-Af BUN/Creatinine Ratio Glucose Lactic Acid Calcium Total Bilirubin AST ALT Alkaline Phosphatase Troponin I Total Protein Albumin Globulin Albumin/Globulin Ratio Clinical Impression(s) from Imaging Studies Abdomen/Pelvis CT 12/09/18 08:51 IMPRESSION: Fatty infiltration of the liver. Findings suggestive of colitis of the descending colon. Status post cholecystectomy, appendectomy and hysterectomy. Electronically Signed: Kamran Velazquez, at 10:52 EDT , Service support , Chest X-Ray 12/09/18 08:51 IMPRESSION: No acute abnormality is seen. Electronically Signed: Kamran Velazquez, at 10:48 EDT , Service support , Assessment/Plan All Active Problems (Last Reviewed 05/03/18 @ 09:04 by Corrie Ho) Colitis with rectal bleeding (Acute) Respiratory failure with hypoxia (Acute) Respiratory insufficiency (Acute) Sepsis (Acute) 1. Sepsis * Present on arrival * Secondary to colitis * Monitor 2. Colitis * Suspect infectious versus ischemic * Doubt inflammatory * Cipro and Flagyl 3. GI bleed * Secondary to colitis * Heme positive but without overt hematochezia * Dr. Hernandez consultation * Discussed with the patient that she will require colonoscopy but will be at the discretion of the surgeon as to when that will be done. Did inform her that it is possible may not be performed during this hospitalization so that we could allow the colitis to improve before doing so. 4. Acute respiratory insufficiency * Improved * Chest x-ray was unremarkable * Suspicion for PE is low * At least partially attributable to her abdominal distention and pain prohibiting firm having deep respirations * wean oxygen as tolerated 5. VTE prophylaxis: Moderate risk. We will place the patient on SCDs as patient has thrombocytopenia and bruising at this time will hold off on chemical prophylaxis Code Visit Inpatient E&M: 78559 Init Hosp L3
[2018-12-09] MEDS: Morphine 2 MG/ML Syringe IV (14:07)
[2018-12-09] MEDS: 0.9% Normal Saline 1,000 ML 125 ML IV (14:07)
[2018-12-09] MEDS: Morphine 4 MG/ML Syringe IV ×3 (15:38→21:35)
[2018-12-09] MEDS: Electrolyte Solution/Peg's 4000 ML PO (17:21)
[2018-12-09 18:11] LABS: Bacteria 0 SEEN /hpf (None Seen); Mucous, Urine 0 SEEN /hpf (<or=2+); Red Blood Cells-Urine 0 SEEN /hpf (0-5); Squamous Epithelial Cells - UA 0 SEEN /hpf (5-10); White Blood Cells 0 SEEN /hpf (0-5)
[2018-12-09 18:13] LABS: Color, Urine Yellow (Yellow); Glucose, Dipstick Normal (Normal); Ketone-Dipstick Negative (Negative); Leukocyte Esterase-Dipstick Negative /ul (Negative); Nitrite-Dipstick Negative (Negative); Occult Blood-Urine 10 /ul (Negative); Protein-Dipstick Negative (Negative); Urine Bilirubin Dipstick Negative (Negative); Urine Clarity Clear (Clear); Urine Urobilinogen Normal (Normal); Urine pH 6.5 (5.0 - 8.0)
[2018-12-09] MEDS: Ondansetron 4 MG/2 ML Vial IV (19:52)
[2018-12-09] MEDS: oxyCODONE 5 MG Tablet PO (20:12)
[2018-12-09] MEDS: proCHLORPERazine 10 MG/2 ML Vial 5 MG IV (21:35)
--- NOTE | 2018-12-09 22:20 | PCM.CONS.GEN ---
Reason for Consult Date of Consultation: 12/09/18 Reason for Consultation: abdominal pain, colitis History of Present Illness: The patient is a 58 year old F with a complaint of episodic abdominal pain. She is noted relatively mild pain around the abdomen for some time. For the past 3 days, she noted increasing abdominal pain which she describes as diffuse around the outside of her abdomen but nonetheless are located in the center aspect of her abdomen. Due to these complaints she presented emergency department and was noted to be mildly hypoxic. She received IV fluids. A CT scan of the pelvis obtained which demonstrated colitis or thickening in the descending colon. The patient was given ciprofloxacin and Flagyl. She denies a previous history of colitis. Stool was checked and noted to be heme positive. I was contacted for endoscopy. the patient was referred for endoscopy in April. She saw Dr. Maldonado on April 05, 2018. she presented noting occasional nausea and vomiting episodically for 2 months. 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 She noted liquid stools usually 2 times per day. She also had abdominal cramping and diarrhea at socially inconvenient times. She was scheduled for upper and lower endoscopy that fell and had a leg fracture and had to cancel that procedure. She had been in usual state of intestinal health until the symptoms worsen over the last few days. patient has a history of chronic renal failure. She concerns about dehydration.she is a former smoker who quit in 2009.she has undergone previous appendectomy, cholecystectomy. Vaginal hysterectomy and bilateral oophorectomy. Past Medical History Past Medical History (Chronic Problems): Chronic Problems (Last Updated 12/09/18 @ 13:23 by Blayne Santana DO) Gastroesophageal reflux disease (Chronic) Hypertension (Chronic) Medical History: Medical History (Last Updated 12/09/18 @ 13:23 by Blayne Santana DO) Anxiety F41.9 Arthritis M19.90 History of diarrhea Z87.898 History of umbilical hernia Z87.19 Hypertension I10 Allergies Penicillins Allergy (Verified 05/03/18 09:06) Unknown DUST Allergy (Uncoded 05/03/18 09:06) Unknown SEASONAL Allergy (Uncoded 05/03/18 09:06) Unknown Home Medications: Ambulatory Orders Medication Instructions Recorded Lisinopril [Zestril] 10 mg PO DAILY 03/05/17 Temazepam [Restoril] 30 mg PO QHS PRN PRN 01/17/18 Albuterol Inhaler [Ventolin Hfa 1 - 2 puff INHALATION Q4H PRN PRN 12/09/18 (SP)] Pantoprazole Sodium [Protonix] 40 mg PO DAILY 12/09/18 Rosuvastatin Calcium 40 mg PO QHS 12/09/18 Surgical History: Surgical History (Last Updated 05/03/18 @ 09:04 by Corrie Ho) History of appendectomy Z90.49 History of cholecystectomy Z90.49 History of hysterectomy Z90.710 History of tubal ligation Z98.51 Surgical History: adenoidectomy, appendectomy, cholecystectomy, herniorrhaphy, hysterectomy Lives: Spouse/ Significant Other Smoking Status: Former smoker Alcohol: None Drugs: None - *Family History Maternal History Items: - - pancreatic cancer Review of Systems Constitutional: Reports: Malaise, Fatigue HEENT: Denies: Head Aches, Sinus Congestion, Sinus Drainage Cardiovascular: Denies: Chest Pain, Palpitations Respiratory: Reports: Shortness of Breath Gastrointestinal: Reports: Abdominal Pain, Diarrhea, Nausea Genitourinary: Denies: Dysuria Musculoskeletal: Reports: Back Pain. Denies: Joint Pain, Joint Tenderness Patient Problems: Active and Suspected Problems (Last Updated 12/09/18 @ 13:23 by Blayne Santana DO) Colitis with rectal bleeding (Acute) Respiratory failure with hypoxia (Acute) Respiratory insufficiency (Acute) Sepsis (Acute) - Physical Exam General: Alert, Oriented x3, Cooperative Lungs: Clear to auscultation, Normal air movement Cardiovascular: Regular rate, No murmurs Abdomen: Bowel Sounds Present, Soft, Non Tender Vital Signs Temp Pulse Resp BP Pulse Ox 98.0 F 95 18 130/95 H 99 12/09/18 19:44 12/09/18 19:44 12/09/18 19:44 12/09/18 19:44 12/09/18 19:44 Oxygen Flow Rate (L/min) 2 Oxygen Delivery Method Nasal Cannula Weight: 130 kg Body Mass Index (BMI) 43.5 Intake and Output for Last 24 Hours 12/07/18 12/08/18 12/09/18 23:59 23:59 23:59 Intake Total 1557 / 1557 Balance 1557 / 1557 Microbiology Past 72 Hours 12/09/18 08:52 Stool Occult Blood (MADELEINE) - Final Stool Occult Blood Positive Laboratory Tests Past 24 Hrs 12/09/18 12/09/18 12/09/18 09:09 09:09 09:09 WBC 3.5 L RBC 4.12 L Hgb 12.4 Hct 39.1 MCV 94.9 MCH 30.1 MCHC 31.7 L RDW 16.8 H RDW Differential 57.6 H Plt Count 105 L MPV 9.9 Immature Gran % (Auto) 0.300 Neut % (Auto) 66.2 Lymph % (Auto) 25.1 [place] % (Auto) 7.2 Eos % (Auto) 0.9 Baso % (Auto) 0.3 Absolute Neuts (auto) 2.3 Absolute Lymphs (auto) 0.87 Total Counted Not Reportable PT INR APTT Specimen Type Sample Site pH Bicarbonate Actual POC Total CO2 Base Excess O2 Saturation ABG pCO2 ABG pO2 Arian Test O2 Delivery Device Liter Flow Blood Gas Notified Whom Blood Gas Notified Time Sodium 140 Potassium 4.3 Chloride 106 Carbon Dioxide 26.0 Anion Gap 8 BUN 16 Creatinine 1.17 H Estim Creat Clear Calc 53.52 Est GFR (MDRD) Af Amer 61 Est GFR (MDRD) Non-Af 51 L BUN/Creatinine Ratio 13.7 Glucose 106 Lactic Acid 1.2 Calcium 8.8 Total Bilirubin 0.80 AST 33 ALT 30 Alkaline Phosphatase 88 Troponin I < 0.015 Total Protein 6.6 Albumin 3.3 Globulin 3.3 Albumin/Globulin Ratio 1.0 Urine Color Urine Clarity Urine pH Ur Specific [place] Urine Protein Urine Glucose (UA) Urine Ketones Urine Occult Blood Urine Nitrite Urine Bilirubin Urine Urobilinogen Ur Leukocyte Esterase Urine RBC Urine WBC Ur Squamous Epith Cells Urine Bacteria Urine Mucus 12/09/18 12/09/18 12/09/18 09:09 09:37 17:40 WBC RBC Hgb Hct MCV MCH MCHC RDW RDW Differential Plt Count MPV Immature Gran % (Auto) Neut % (Auto) Lymph % (Auto) [place] % (Auto) Eos % (Auto) Baso % (Auto) Absolute Neuts (auto) Absolute Lymphs (auto) Total Counted PT 12.9 INR 1.0 APTT 27.7 Specimen Type ART Sample Site R Radial pH 7.35 Bicarbonate Actual 24.8 POC Total CO2 26 Base Excess -1 O2 Saturation 93 L ABG pCO2 44.5 ABG pO2 72 L Arian Test POS O2 Delivery Device Nasal Can Liter Flow 3.0 Blood Gas Notified Whom ED Blood Gas Notified Time 930 Sodium Potassium Chloride Carbon Dioxide Anion Gap BUN Creatinine Estim Creat Clear Calc Est GFR (MDRD) Af Amer Est GFR (MDRD) Non-Af BUN/Creatinine Ratio Glucose Lactic Acid Calcium Total Bilirubin AST ALT Alkaline Phosphatase Troponin I Total Protein Albumin Globulin Albumin/Globulin Ratio Urine Color Yellow Urine Clarity Clear Urine pH 6.5 Ur Specific [place] 1.010 Urine Protein Negative Urine Glucose (UA) Normal Urine Ketones Negative Urine Occult Blood 10 H Urine Nitrite Negative Urine Bilirubin Negative Urine Urobilinogen Normal Ur Leukocyte Esterase Negative Urine RBC 0 SEEN Urine WBC 0 SEEN Ur Squamous Epith Cells 0 SEEN Urine Bacteria 0 SEEN Urine Mucus 0 SEEN Assessment/Plan All Active Problems (Last Updated 12/09/18 @ 13:23 by Blayne Santana DO) Colitis with rectal bleeding (Acute) Respiratory failure with hypoxia (Acute) Respiratory insufficiency (Acute) Sepsis (Acute) Abdominal discomfort, CT scan consistent with descending colon colitis, history of reflux. I plan to perform upper and lower endoscopy. The patient was taken to the risks, benefits, complications and alternatives and consents to upper and lower endoscopy. she did vomit or prep earlier this evening. I recommended she try to drink the prep more slowly and if prescribed Compazine to see if this improves her bili tolerate the prep.
[2018-12-10] VITALS (13 sets, daily range): BP systolic 101–127; BP diastolic 65–90; PULSE 99–121; RESP 16–20; TEMP 36.2–37.5; O2SAT 89–100; BMI 43.5
[2018-12-10] MEDS: 0.9% Normal Saline 1,000 ML 125 ML IV (00:37)
[2018-12-10] MEDS: Morphine 4 MG/ML Syringe IV ×6 (00:41→22:19)
[2018-12-10] MEDS: proCHLORPERazine 10 MG/2 ML Vial 5 MG IV ×2 (02:50→19:12)
[2018-12-10] MEDS: oxyCODONE 5 MG Tablet PO ×2 (02:50→17:36)
[2018-12-10] MEDS: Albuterol 2.5 MG/3 ML VIAL.NEB. INHALATION (03:20)
[2018-12-10] MEDS: metroNIDAZOLE 500 MG/100 ML BAG 100 MG IV ×3 (04:51→21:29)
[2018-12-10 05:47] LABS: Absolute Lymphocyte Count 0.67 X10^3/ul (0.83-4.51); Absolute Neutrophil Count 1.9 X10^3/uL (2.0-7.7); Basophil# 0.01 X10^3/uL; Basophil% 0.3 % (0-1); Eosinophil# 0.02 X10^3/uL; Eosinophils% 0.7 % (0-5); Hematocrit 38.2 % (37-47); Hemoglobin 11.9 g/dl (12.0-15.0); Lymphocyte # 0.67 X10^3/ul (4.0); Lymphocyte % 23.2 % (19-41); Mean Corp Hgb Conc 31.2 g/gl (32-36); Mean Corpuscular Hgb 30.1 pg (27.0-32.0); Mean Corpuscular Volume 96.7 fL (81-99); Mean Platelet Vol. 10.3 fl (6.2-12.0); Monocyte# 0.27 X10^3/uL; Monocyte% 9.3 % (0-10); Neutrophil # 1.92 X10^3/uL (2.7-7.7); Neutrophil % 66.5 % (47-70); Platelet Count 121 K/mm3 (150-450); RBC Distribution Width CV 17.4 % (11.6-14.6); RBC Distribution Width SD 61.6 fl (35.1-43.9); Red Blood Count 3.95 M/mm3 (4.2-5.4); White Blood Count 2.9 K/mm3 (4.4-11.0)
[2018-12-10 05:53] LABS: POSITIVE COUNT NO; POSITIVE DIFFERENTIAL NO; POSITIVE MORPHOLOGY NO
[2018-12-10 06:10] LABS: Anion Gap 8 (5-15); BUN 12 mg/dL (7-18); BUN/Creat Ratio 11.9 RATIO (10-20); Calcium,Total 8.4 mg/dL (8.5-10.1); Chloride 106 mmol/L (98-107); Creatinine, Serum 1.01 mg/dL (0.55-1.02); EST Glomerular Filtration Rate 60 mL/min (>60); Est Glom Filt Rate - Afr Amer 73 mL/min (>60); Estimated Creatinine Clearance 61.99 ml/min; Glucose 111 mg/dL (74-106); Potassium 3.9 mmol/L (3.5-5.1); Sodium Level 138 mmol/L (136-145)
--- NOTE | 2018-12-10 07:15 | IMM_PTH ---
PATIENT: ALFIE HOGAN LOC: MS2 U#:[id number] AGE/SX: 58/F ROOM: [facility] [id number] RE12/09/[address]: Dr. Blayne Santana DO : 1960 BED: 1 DIS: 12/13/2018 SPEC #: [id number] RECD: 12/10/18 16:31 STATUS: EMILY REQ #: [id number] ELINA: 12/10/18 07:[address]: Rui Hernandez DEPT: IMMUNOHISTOCHEMISTRY RECD BY: Evelyne Mcdonnell ENTERED: 12/10/18 16:32 SP TYPE: IMMUNO OTHR DR: MD Dr. Blayne Blanco DO Tissues: A - Stomach, NOS Procedures: H Pylori (initial) PHYSICIAN & INSTITUTION [place] [id number] SPECIMEN INFORMATION: Tissue Source: A - Antral biopsy Clinical Info: Abdominal pain, colitis Specimen Number: [id number] CPT code: 72697 METHODOLOGY: Deparaffinized sections of prefer/formalin-fixed tissue or PAP/DQ stained slides are incubated with monoclonal/polyclonal antibodies/oligonucleotide probes. Localization is made via biotin free immunoperoxidase method. Appropriate controls are performed and reacted as expected. Results on target cell population are indicated in the following table: RESULTS: ANTIBODY / CLONE RESULT Block A H Pylori (polyclonal) negative These tests were developed and their performance characteristics determined by [facility]. They may not have been cleared or approved by the U.S. Food and Drug Administration. The FDA has determined that such clearance or approval is not necessary. INTERPRETATION: A. Antral biopsy: Negative for Helicobacter pylori organisms. SJ:gail 12/11/18
--- NOTE | 2018-12-10 07:15 | EGD_PTH ---
PATIENT: ALFIE HOGAN LOC: MS2 U#:[id number] AGE/SX: 58/F ROOM: [facility] [id number] RE12/09/[address]: Dr. Blayne Santana DO : 1960 BED: 1 DIS: 12/13/2018 SPEC #: [id number] RECD: 12/10/18 08:14 STATUS: EMILY REStanley #: [id number] ELINA: 12/10/18 07:[address]: Rui Hernandez DEPT: SURGICAL PATHOLOGY RECD BY: Flynn Barnett ENTERED: 12/10/18 14:17 SP TYPE: EGD BIOPSY OT DR: MD Dr. Blayne Blanco DO Tissues: A - Gastric mucous membrane B - Gastric mucous membrane C - Ileum, NOS D - Ischium, NOS E - Descending colon F - Sigmoid colon biopsy Procedures: Special Stain Group II Surgery Specimen Level IV Alcian Blue/PAS (control) HEADER OPERATION: [place] PRE[place] DIAGNOSIS: Abdominal pain, colitis TISSUE SUBMITTED: A - Antral biopsy for H. pylori and pathology, B - GE junction biopsy, C - Ileocecal biopsy, D - Biopsy of ischemic mass, E - Descending colon biopsy, F - Sigmoid colon biopsy MICROSCOPIC DIAGNOSIS A. Antral biopsy: Mild gastritis. See microscopic description and comment. B. GE junction, biopsy: A fragment of gastroesophageal mucosa with chronic inflammation. Intestinal metaplasia (goblet cell metaplasia) is not identified. See comment. C. Ileocecal biopsy: A fragment of colonic mucosa, no pathologic diagnosis. D. Ischemic mass, biopsy: Fragments of colonic mucosa with extensive necrosis, acute inflammation most likely represents fragments of ulcerated mucosa.. No viable mucosa is noted in the specimen. E. Descending colon, biopsy: A fragment of colonic mucosa, no pathologic diagnosis. F. Sigmoid colon, biopsy: Fragments of colonic mucosa, no pathologic diagnosis. SJ:gail 12/11/18 COMMENT A. The results of immunohistochemistry for Helicobacter pylori will be reported separately ([id number]). B. The specimen predominantly consists of gastric mucosa. Alcian blue/PAS stain with matched control is used in the evaluation of the specimen. D. If there is high suspicion of malignancy, rebiopsy is suggested if clinically indicated. Correlation with clinical, endoscopic findings and appropriate follow up are necessary. MICROSCOPIC DESCRIPTION Slides are reviewed. A. The specimen shows fragments of gastric mucosa with chronic inflammatory cell infiltrates in the lamina propria consisting of lymphocytes and plasma cells, consistent with mild chronic gastritis. GROSS DESCRIPTION A - Received in fixative is one container labeled with the patient's name and designated antral biopsy. The specimen consists of one irregular fragment of light rose soft tissue that measures 0.3 x 0.2 x 0.1 cm. The specimen is totally submitted in one cassette. B - Received in fixative is one container labeled with the patient's name and designated GE junction biopsy. The specimen consists of one irregular fragment of light rose soft tissue that measures 0.4 x 0.3 x 0.1 cm. The specimen is totally submitted in one cassette. C - Received in fixative is one container labeled with the patient's name and designated ileocecal biopsy. The specimen consists of one irregular fragment of light rose soft tissue mixed with fecal material that measures 0.3 x 0.2 x 0.1 cm. The specimen is totally submitted in one cassette. D - Received in fixative is one container labeled with the patient's name and designated ischemic mass biopsy. The specimen consists of multiple irregular fragments of light rose soft tissue that in aggregate measure 1 x 0.5 x 0.1 cm. The specimen is totally submitted in one cassette. E - Received in fixative is one container labeled with the patient's name and designated descending colon biopsy. The specimen consists of one irregular fragment of light rose soft tissue that measures 0.3 x 0.3 x 0.1 cm. The specimen is totally submitted in one cassette. F - Received in fixative is one container labeled with the patient's name and designated sigmoid colon biopsy. The specimen consists of multiple irregular fragments of light rose soft tissue that in aggregate measure 1 x 0.2 x 0.1 cm. The specimen is totally submitted in one cassette. / SJ:rg 12/10/18 TC:5 CPT: 47115 x6, 16824
--- NOTE | 2018-12-10 07:57 | OP.ENDO_ITS ---
12/10/2018 Karl Moran Re : Upper GI endoscopy procedure for Shanda Felder Dear Dean This procedure was performed on Monday, December 10, 2018. My impressions and recommendations are as follows: Impressions : - Normal examined jejunum. - Normal examined duodenum. - Gastritis. Biopsied. - Mildly severe reflux esophagitis. Biopsied. Recommendations : - [facility] to [facility]. - Clear liquid diet. - Continue present medications. My findings are described in the full procedure note, which is enclosed. If I can be of further assistance, please feel free to contact me at Doctor phone number(s): , Work: . Sincerely, Rui Hernandez MD 12/10/2018 7:57:11 AM This report has been signed electronically.
--- NOTE | 2018-12-10 08:02 | PN.SURG_ITS ---
Patient Problems: Active and Suspected Problems (Last Updated 12/09/18 @ 13:23 by Blayne Santana DO) Colitis with rectal bleeding (Acute) Respiratory failure with hypoxia (Acute) Respiratory insufficiency (Acute) Sepsis (Acute) Subjective: diffuse abdominal pain - Physical Exam General: Alert, Oriented x3, Cooperative Lungs: Clear to auscultation, Normal air movement Cardiovascular: Regular rate, No murmurs Abdomen: Bowel Sounds Present, Soft, Tender Vital Signs Temp Pulse Resp BP Pulse Ox 98.0 F 116 H 20 H 127/90 H 93 12/10/18 02:41 12/10/18 03:21 12/10/18 03:21 12/10/18 02:41 12/10/18 03:24 Oxygen Flow Rate (L/min) 2 Oxygen Delivery Method Nasal Cannula Weight: 130 kg Body Mass Index (BMI) 43.5 Intake and Output for Last 24 Hours 12/08/18 12/09/18 12/10/18 23:59 23:59 23:59 Intake Total 1557 / 3903 3877 / 3877 Output Total 1000 / 1000 Balance 1557 / 2903 2877 / 2877 Microbiology Past 72 Hours 12/09/18 08:52 Stool Occult Blood (MADELEINE) - Final Stool Occult Blood Positive Laboratory Tests Past 24 Hrs 12/09/18 12/09/18 12/09/18 09:09 09:09 09:09 WBC 3.5 L RBC 4.12 L Hgb 12.4 Hct 39.1 MCV 94.9 MCH 30.1 MCHC 31.7 L RDW 16.8 H RDW Differential 57.6 H Plt Count 105 L MPV 9.9 Immature Gran % (Auto) 0.300 Neut % (Auto) 66.2 Lymph % (Auto) 25.1 [place] % (Auto) 7.2 Eos % (Auto) 0.9 Baso % (Auto) 0.3 Absolute Neuts (auto) 2.3 Absolute Lymphs (auto) 0.87 Total Counted Not Reportable PT INR APTT Specimen Type Sample Site pH Bicarbonate Actual POC Total CO2 Base Excess O2 Saturation ABG pCO2 ABG pO2 Arian Test O2 Delivery Device Liter Flow Blood Gas Notified Whom Blood Gas Notified Time Sodium 140 Potassium 4.3 Chloride 106 Carbon Dioxide 26.0 Anion Gap 8 BUN 16 Creatinine 1.17 H Estim Creat Clear Calc 53.52 Est GFR (MDRD) Af Amer 61 Est GFR (MDRD) Non-Af 51 L BUN/Creatinine Ratio 13.7 Glucose 106 Lactic Acid 1.2 Calcium 8.8 Total Bilirubin 0.80 AST 33 ALT 30 Alkaline Phosphatase 88 Troponin I < 0.015 Total Protein 6.6 Albumin 3.3 Globulin 3.3 Albumin/Globulin Ratio 1.0 Urine Color Urine Clarity Urine pH Ur Specific [place] Urine Protein Urine Glucose (UA) Urine Ketones Urine Occult Blood Urine Nitrite Urine Bilirubin Urine Urobilinogen Ur Leukocyte Esterase Urine RBC Urine WBC Ur Squamous Epith Cells Urine Bacteria Urine Mucus 12/09/18 12/09/18 12/09/18 09:09 09:37 17:40 WBC RBC Hgb Hct MCV MCH MCHC RDW RDW Differential Plt Count MPV Immature Gran % (Auto) Neut % (Auto) Lymph % (Auto) [place] % (Auto) Eos % (Auto) Baso % (Auto) Absolute Neuts (auto) Absolute Lymphs (auto) Total Counted PT 12.9 INR 1.0 APTT 27.7 Specimen Type ART Sample Site R Radial pH 7.35 Bicarbonate Actual 24.8 POC Total CO2 26 Base Excess -1 O2 Saturation 93 L ABG pCO2 44.5 ABG pO2 72 L Arian Test POS O2 Delivery Device Nasal Can Liter Flow 3.0 Blood Gas Notified Whom ED MD Blood Gas Notified Time 930 Sodium Potassium Chloride Carbon Dioxide Anion Gap BUN Creatinine Estim Creat Clear Calc Est GFR (MDRD) Af Amer Est GFR (MDRD) Non-Af BUN/Creatinine Ratio Glucose Lactic Acid Calcium Total Bilirubin AST ALT Alkaline Phosphatase Troponin I Total Protein Albumin Globulin Albumin/Globulin Ratio Urine Color Yellow Urine Clarity Clear Urine pH 6.5 Ur Specific [place] 1.010 Urine Protein Negative Urine Glucose (UA) Normal Urine Ketones Negative Urine Occult Blood 10 H Urine Nitrite Negative Urine Bilirubin Negative Urine Urobilinogen Normal Ur Leukocyte Esterase Negative Urine RBC 0 SEEN Urine WBC 0 SEEN Ur Squamous Epith Cells 0 SEEN Urine Bacteria 0 SEEN Urine Mucus 0 SEEN 12/10/18 12/10/18 05:10 05:10 WBC 2.9 L RBC 3.95 L Hgb 11.9 L Hct 38.2 MCV 96.7 MCH 30.1 MCHC 31.2 L RDW 17.4 H RDW Differential 61.6 H Plt Count 121 L MPV 10.3 Immature Gran % (Auto) 0.000 Neut % (Auto) 66.5 Lymph % (Auto) 23.2 [place] % (Auto) 9.3 Eos % (Auto) 0.7 Baso % (Auto) 0.3 Absolute Neuts (auto) 1.9 L Absolute Lymphs (auto) 0.67 L Total Counted Not Reportable PT INR APTT Specimen Type Sample Site pH Bicarbonate Actual POC Total CO2 Base Excess O2 Saturation ABG pCO2 ABG pO2 Arian Test O2 Delivery Device Liter Flow Blood Gas Notified Whom Blood Gas Notified Time Sodium 138 Potassium 3.9 Chloride 106 Carbon Dioxide 24.0 Anion Gap 8 BUN 12 Creatinine 1.01 Estim Creat Clear Calc 61.99 Est GFR (MDRD) Af Amer 73 Est GFR (MDRD) Non-Af 60 BUN/Creatinine Ratio 11.9 Glucose 111 H Lactic Acid Calcium 8.4 L Total Bilirubin AST ALT Alkaline Phosphatase Troponin I Total Protein Albumin Globulin Albumin/Globulin Ratio Urine Color Urine Clarity Urine pH Ur Specific [place] Urine Protein Urine Glucose (UA) Urine Ketones Urine Occult Blood Urine Nitrite Urine Bilirubin Urine Urobilinogen Ur Leukocyte Esterase Urine RBC Urine WBC Ur Squamous Epith Cells Urine Bacteria Urine Mucus Medical Necessity - Tobacco Use Smoking Status: Former smoker Assessment/Plan All Active Problems (Last Updated 12/09/18 @ 13:23 by Blayne Santana DO) Colitis with rectal bleeding (Acute) Respiratory failure with hypoxia (Acute) Respiratory insufficiency (Acute) Sepsis (Acute) Abdominal discomfort, CT scan consistent with descending colon colitis, history of reflux. upper and lower endoscopy performed. mild gastritis and dist esophagitis - continue PPI Colon - proximal ascending colon ischemic changes - very localized. Biopsies taken - site tattooed and clipped. would continue antibiotics and only clear liquids. Await biopsy results.
--- NOTE | 2018-12-10 08:02 | OP.ENDO_ITS ---
12/10/2018 Karl Moran Re : Colonoscopy procedure for Shanda Felder Dear Dean This procedure was performed on Monday, December 10, 2018. My impressions and recommendations are as follows: Impressions : - The sigmoid colon, descending colon and cecum are normal. Biopsied. - Localized moderate inflammation was found in the proximal ascending colon secondary to infectious colitis. Biopsied. Injected. Clip (MR conditional) was placed. - Diverticulosis in the sigmoid colon. - The distal rectum and anal verge are normal on retroflexion view. Recommendations : - Return patient to [facility] for [facility] care. - Clear liquid diet. - Continue present medications. - Repeat colonoscopy in 1 month. My findings are described in the full procedure note, which is enclosed. If I can be of further assistance, please feel free to contact me at Doctor phone number(s): , Work: . Sincerely, Rui Hernandez MD 12/10/2018 8:02:06 AM This report has been signed electronically.
--- NOTE | 2018-12-10 08:04 | RAD_ITS ---
STUDY: X-RAY - ABDOMEN/PELVIS REASON FOR EXAM: Female, 58 years old. Abdominal pain. Clip marker placed in the proximal ascending colon. TECHNIQUE: Two AP supine views of the abdomen and pelvis. COMPARISON: None. FINDINGS: Normal visualized lung bases. Haustral thickening in the right hemicolon. A metallic clip is seen in the descending colon adjacent to the hepatic flexure. The visualized liver, spleen and kidneys are grossly normal in size and morphology. Normal soft tissue structures. There are diffuse degenerative changes of the visualized lumbar spine. Prior laminectomy and fusion at the L3-L4 and L4-L5 levels. Bilateral hip replacements. RAD/Abdomen Single View IMPRESSION: A localization clip is seen in the descending colon adjacent to the hepatic flexure. Electronically Signed: Kamran Velazquez, at 9:18 EDT , Service support ,
[2018-12-10] MEDS: Morphine 2 MG/ML Syringe IV (08:59)
[2018-12-10] MEDS: Pantoprazole Sodium 40 MG Tablet PO (09:00)
[2018-12-10] MEDS: Ciprofloxacin 400 MG/200 ML BAG 200 MG IV ×2 (09:00→22:45)
[2018-12-10] MEDS: 0.9% NaCl Peripheral Flush Adult/Peds IV ×6 (12:37→23:46)
--- NOTE | 2018-12-10 14:47 | PN_ITS ---
Patient Problems: Active and Suspected Problems (Last Updated 12/09/18 @ 13:23 by Blayne Santana DO) Colitis with rectal bleeding (Acute) Respiratory failure with hypoxia (Acute) Respiratory insufficiency (Acute) Sepsis (Acute) Subjective: still with abdominal pain, but improved from yesterday. Vitals/I&O's: Vital Signs Temp Pulse Resp BP Pulse Ox 36.9 C 102 H 18 118/73 95 12/10/18 09:14 12/10/18 09:14 12/10/18 09:14 12/10/18 09:14 12/10/18 09:14 Oxygen Flow Rate (L/min) 2 Oxygen Delivery Method Nasal Cannula Weight: 130 kg Body Mass Index (BMI) 43.5 Intake and Output for Last 24 Hours 12/08/18 12/09/18 12/10/18 23:59 23:59 23:59 Intake Total 1557 / 3903 6068 / 6068 Output Total 1000 / 1000 Balance 1557 / 2903 5068 / 5068 General: Alert, No apparent distress HEENT: Atraumatic, Normocephalic Oral: Moist Mucosa, No Gingival or Mucosal Lesions/ Ulcerations Neck: No Nodes, Thyroid Normal Size and Texture Lungs: Clear to auscultation, Normal air movement, No rhonchi, No wheeze, No rales Cardiovascular: Regular rate, Regular Rhythm, Normal S1, Normal S2 Abdomen: Bowel Sounds Present, Soft, No Hepato-splenomegaly, Distended, Obese, Tender Extremities: No edema, No Calf Tenderness Skin: No rashes, No breakdown Musculoskeletal: No Tenderness to Palpation of Joints or Extremities, No Muscle Wasting Psych/Mental Status: Normal Affect, Appropriate Microbiology Past 72 Hours 12/09/18 08:52 Stool Stool Occult Blood (MADELEINE) - Final Occult Blood Positive Laboratory Results 12/09/18 17:40: Urine Color Yellow, Urine Clarity Clear, Urine pH 6.5, Ur Specific [place] 1.010, Urine Protein Negative, Urine Glucose (UA) Normal, Urine Ketones Negative, Urine Occult Blood 10 H, Urine Nitrite Negative, Urine Bilirubin Negative, Urine Urobilinogen Normal, Ur Leukocyte Esterase Negative, Urine RBC 0 SEEN, Urine WBC 0 SEEN, Ur Squamous Epith Cells 0 SEEN, Urine Bacteria 0 SEEN, Urine Mucus 0 SEEN 12/10/18 05:10: WBC 2.9 L, RBC 3.95 L, Hgb 11.9 L, Hct 38.2, MCV 96.7, MCH 30.1, MCHC 31.2 L, RDW 17.4 H, RDW Differential 61.6 H, Plt Count 121 L, MPV 10.3, Immature Gran % (Auto) 0.000, Neut % (Auto) 66.5, Lymph % (Auto) 23.2, [place] % (Auto) 9.3, Eos % (Auto) 0.7, Baso % (Auto) 0.3, Absolute Neuts (auto) 1.9 L, Absolute Lymphs (auto) 0.67 L, Total Counted Not Reportable 12/10/18 05:10: Sodium 138, Potassium 3.9, Chloride 106, Carbon Dioxide 24.0, Anion Gap 8, BUN 12, Creatinine 1.01, Estim Creat Clear Calc 61.99, Est GFR (MDRD) Af Amer 73, Est GFR (MDRD) Non-Af 60, BUN/Creatinine Ratio 11.9, Glucose 111 H, Calcium 8.4 L Current Medications Acetaminophen (Tylenol) 650 mg PO Q6H PRN PRN PRN Reason: Mild Pain (1-3)/Temp > 100.7 F Albuterol Sulfate (Ventolin Aerosols) 2.5 mg INHALATION Q2H PRN PRN PRN Reason: Shortness of Breath/Wheezing Last Admin: 12/10/18 03:20 Dose: 2.5 mg Documented by: Dextrose (D50w Syringe) 0 gm IV X1 PRN; Protocol PRN Reason: Hypoglycemia Glucagon () 1 mg IM .X1 PRN PRN Reason: Hypoglycemia Metronidazole (Flagyl) 500 mg in 100 mls @ 100 mls/hr IV Q8H [facility] Last Admin: 12/10/18 13:13 Dose: 100 mls/hr Documented by: Ciprofloxacin (Cipro) 400 mg in 200 mls @ 200 mls/hr IV Q12 [facility] Last Admin: 12/10/18 09:00 Dose: 200 mls/hr Documented by: Melatonin (Melatonin) 3 mg PO QHS PRN PRN PRN Reason: INSOMNIA Morphine Sulfate () 4 mg IV Q3H PRN PRN PRN Reason: SEVERE PAIN (6-10/10) Last Admin: 12/10/18 12:37 Dose: 4 mg Documented by: Morphine Sulfate () 2 mg IV Q3H PRN PRN PRN Reason: MILD-MOD PAIN (1-5/10) Last Admin: 12/10/18 08:59 Dose: 2 mg Documented by: Ondansetron HCl (Zofran) 4 mg IV Q8H PRN PRN PRN Reason: NAUSEA/VOMITING Last Admin: 12/09/18 19:52 Dose: 4 mg Documented by: Oxycodone HCl (Oxyir) 5 mg PO Q4H PRN PRN PRN Reason: Moderate Pain (4-6/10) Last Admin: 12/10/18 02:50 Dose: 5 mg Documented by: Pantoprazole Sodium (Protonix) 40 mg PO DAILY NINA Last Admin: 12/10/18 09:00 Dose: 40 mg Documented by: Prochlorperazine Edisylate (Compazine Iv) 5 mg IV Q4H PRN PRN PRN Reason: NAUSEA/VOMITING Last Admin: 12/10/18 02:50 Dose: 5 mg Documented by: Sodium Chloride () 10 - 40 ml IV UD PRN PRN Reason: SALINE FLUSH Last Admin: 12/10/18 12:37 Dose: 10 ml Documented by: Temazepam (Restoril) 30 mg PO QHS PRN PRN PRN Reason: INSOMNIA Medical Necessity - Tobacco Use Smoking Status: Former smoker Assessment/Plan All Active Problems (Last Updated 12/09/18 @ 13:23 by Blayne Santana DO) Colitis with rectal bleeding (Acute) Respiratory failure with hypoxia (Acute) Respiratory insufficiency (Acute) Sepsis (Acute) 1. Sepsis * improving * Present on arrival * Secondary to colitis * Monitor 2. Colitis * Suspect infectious versus ischemic * Doubt inflammatory * Cipro and Flagyl 3. GI bleed * Secondary to colitis * Heme positive but without overt hematochezia * Dr. Hernandez consultation * Discussed with the patient that she will require colonoscopy but will be at the discretion of the surgeon as to when that will be done. Did inform her that it is possible may not be performed during this hospitalization so that we could allow the colitis to improve before doing so. * H/H stable 4. Acute respiratory insufficiency * Improved * Chest x-ray was unremarkable * Suspicion for PE is low * At least partially attributable to her abdominal distention and pain prohibiting firm having deep respirations * wean oxygen as tolerated * check ambulatory pulse ox as outpt. 5. VTE prophylaxis: Moderate risk. We will place the patient on SCDs as patient has thrombocytopenia and bruising at this time will hold off on chemical prophylaxis Code Visit Inpatient E&M: 38607 Subs Hosp L2
[2018-12-10] MEDS: Temazepam 15 MG Capsule 30 MG PO (21:41)
[2018-12-11] VITALS (8 sets, daily range): BP systolic 102–130; BP diastolic 58–109; PULSE 99–112; RESP 16–22; TEMP 36.4–37.5; O2SAT 93–99
[2018-12-11] MEDS: Morphine 4 MG/ML Syringe IV ×6 (01:45→21:16)
[2018-12-11] MEDS: 0.9% NaCl Peripheral Flush Adult/Peds IV ×7 (01:45→21:16)
[2018-12-11] MEDS: metroNIDAZOLE 500 MG/100 ML BAG 100 MG IV ×3 (05:12→21:13)
[2018-12-11 06:02] LABS: Absolute Lymphocyte Count 0.79 X10^3/ul (0.83-4.51); Absolute Neutrophil Count 1.7 X10^3/uL (2.0-7.7); Basophil# 0.01 X10^3/uL; Basophil% 0.3 % (0-1); Eosinophil# 0.03 X10^3/uL; Hematocrit 35.3 % (37-47); Hemoglobin 11.1 g/dl (12.0-15.0); Lymphocyte # 0.79 X10^3/ul (4.0); Lymphocyte % 27.5 % (19-41); Mean Corp Hgb Conc 31.4 g/gl (32-36); Mean Corpuscular Hgb 30.2 pg (27.0-32.0); Mean Corpuscular Volume 96.2 fL (81-99); Mean Platelet Vol. 9.7 fl (6.2-12.0); Monocyte# 0.32 X10^3/uL; Monocyte% 11.1 % (0-10); Neutrophil # 1.71 X10^3/uL (2.7-7.7); Neutrophil % 59.8 % (47-70); Platelet Count 127 K/mm3 (150-450); RBC Distribution Width CV 17.8 % (11.6-14.6); RBC Distribution Width SD 60.1 fl (35.1-43.9); Red Blood Count 3.67 M/mm3 (4.2-5.4); White Blood Count 2.9 K/mm3 (4.4-11.0)
[2018-12-11 06:08] LABS: POSITIVE COUNT NO; POSITIVE DIFFERENTIAL NO; POSITIVE MORPHOLOGY NO
[2018-12-11 06:28] LABS: Anion Gap 5 (5-15); BUN 7 mg/dL (7-18); BUN/Creat Ratio 6.9 RATIO (10-20); Calcium,Total 8.6 mg/dL (8.5-10.1); Chloride 101 mmol/L (98-107); Creatinine, Serum 1.01 mg/dL (0.55-1.02); EST Glomerular Filtration Rate 60 mL/min (>60); Est Glom Filt Rate - Afr Amer 73 mL/min (>60); Estimated Creatinine Clearance 61.99 ml/min; Glucose 101 mg/dL (74-106); Potassium 3.9 mmol/L (3.5-5.1); Sodium Level 134 mmol/L (136-145)
[2018-12-11] MEDS: oxyCODONE 5 MG Tablet PO (08:05)
--- NOTE | 2018-12-11 08:36 | NURSING ---
Addendum entered by Veronica Mcdonough 12/11/18 08:40: pt states she doesn't know if she threw a clot. Dr veloz informed about this. Original Note: [id number] nurse called into room, c/o of sob. Pt was in bathroom, and was going to ambulate in shah with spouse, but got sob, turned ashen per spouse. He assisted her back to bed, pt denies chest pain, but had heaviness briefly. Hob is elevated at 50 degrees, and o2 is at 4.[address] Santana was notified via a text.
--- NOTE | 2018-12-11 09:09 | CT_ITS ---
STUDY: CTA CHEST REASON FOR EXAM: Female, 58 years old. Near syncopal episode. RADIATION DOSAGE (If Supplied By Facility): CTDIvol = ( 16.22 ) mGy, DLP = ( 505.42 ) mGycm TECHNIQUE: The examination was performed with the intravenous administration of 100cc IV Isovue 370. Post-processing of the angiographic images was performed, with multiplanar reformation and 3D reconstruction. Individualized dose optimization techniques were used for this CT. COMPARISON: None. FINDINGS: Normal enhancement of the main pulmonary artery and right and left pulmonary arteries. Normal enhancement of the bilateral peripheral pulmonary arteries. There is no demonstrated pulmonary embolism. Normal thoracic aorta and visualized great vessels. There is no demonstrated aortic dissection. Normal heart and pericardium. Normal mediastinum. Normal hilar regions. Normal visualized trachea and bronchi. The lungs are well expanded. Focal infiltrate and/or atelectasis in the right lower lobe with thickening of the right major fissure. Normal pleura. Normal chest wall structures. Normal osseous structures. Normal visualized upper abdomen. CT/CTA Chest W/WO Contrast IMPRESSION: Right lower lobe atelectasis and/or infiltrate with thickening of the right major fissure. Electronically Signed: Kamran Velazquez, at 10:20 EDT , Service support ,
--- NOTE | 2018-12-11 09:10 | PN_ITS ---
Patient Problems: Active and Suspected Problems (Last Updated 12/09/18 @ 13:23 by Blayne Santana DO) Colitis with rectal bleeding (Acute) Respiratory failure with hypoxia (Acute) Respiratory insufficiency (Acute) Sepsis (Acute) Subjective: got up to go to the bathroom and when she came back appeared ashen, according to her , felt dizzy, then couldn't breath. she was placed on oxygen then did better. was up ambulating in hallway yesterday w/o difficulty. Abdominal pain overall improved, particularly on the left. Vitals/I&O's: Vital Signs Temp Pulse Resp BP Pulse Ox 36.9 C 112 H 22 H 130/109 H 97 12/11/18 07:45 12/11/18 08:25 12/11/18 08:25 12/11/18 08:25 12/11/18 08:25 Oxygen Flow Rate (L/min) 4.5 Oxygen Delivery Method Nasal Cannula Weight: 130 kg Body Mass Index (BMI) 43.5 Intake and Output for Last 24 Hours 12/09/18 12/10/18 12/11/18 23:59 23:59 23:59 Intake Total 1557 / 3903 7512 / 8320 1218 / 1218 Output Total 1700 / 1700 0 / 0 Balance 1557 / 2903 5812 / 6620 1218 / 1218 General: Alert, No apparent distress HEENT: Atraumatic, Normocephalic Oral: Moist Mucosa, No Gingival or Mucosal Lesions/ Ulcerations Neck: No Nodes, Thyroid Normal Size and Texture Lungs: Clear to auscultation, Normal air movement, No rhonchi, No wheeze, No rales Cardiovascular: Regular rate, Regular Rhythm, Normal S1, Normal S2, No murmurs Abdomen: Bowel Sounds Present, Soft, No Hepato-splenomegaly, Distended, Obese, Tender Extremities: No edema, No Calf Tenderness Skin: No rashes, No breakdown Musculoskeletal: No Tenderness to Palpation of Joints or Extremities, No Muscle Wasting Neurological: Muscle tone normal, Coordination normal Psych/Mental Status: Appropriate, Anxious Microbiology Past 72 Hours 12/09/18 08:52 Stool Stool Occult Blood (MADELEINE) - Final Occult Blood Positive Laboratory Results 12/11/18 05:35: WBC 2.9 L, RBC 3.67 L, Hgb 11.1 L, Hct 35.3 L, MCV 96.2, MCH 30.2, MCHC 31.4 L, RDW 17.8 H, RDW Differential 60.1 H, Plt Count 127 L, MPV 9.7, Immature Gran % (Auto) 0.300, Neut % (Auto) 59.8, Lymph % (Auto) 27.5, [place] % (Auto) 11.1 H, Eos % (Auto) 1.0, Baso % (Auto) 0.3, Absolute Neuts (auto) 1.7 L, Absolute Lymphs (auto) 0.79 L, Total Counted Not Reportable 12/11/18 05:35: Sodium 134 L, Potassium 3.9, Chloride 101, Carbon Dioxide 28.0, Anion Gap 5, BUN 7, Creatinine 1.01, Estim Creat Clear Calc 61.99, Est GFR (MDRD) Af Amer 73, Est GFR (MDRD) Non-Af 60, BUN/Creatinine Ratio 6.9 L, Glucose 101, Calcium 8.6 Current Medications Acetaminophen (Tylenol) 650 mg PO Q6H PRN PRN PRN Reason: Mild Pain (1-3)/Temp > 100.7 F Albuterol Sulfate (Ventolin Aerosols) 2.5 mg INHALATION Q2H PRN PRN PRN Reason: Shortness of Breath/Wheezing Last Admin: 12/10/18 03:20 Dose: 2.5 mg Documented by: Dextrose (D50w Syringe) 0 gm IV X1 PRN; Protocol PRN Reason: Hypoglycemia Glucagon () 1 mg IM .X1 PRN PRN Reason: Hypoglycemia Metronidazole (Flagyl) 500 mg in 100 mls @ 100 mls/hr IV Q8H [facility] Last Admin: 12/11/18 05:12 Dose: 100 mls/hr Documented by: Ciprofloxacin (Cipro) 400 mg in 200 mls @ 200 mls/hr IV Q12 [facility] Last Admin: 12/10/18 22:45 Dose: 200 mls/hr Documented by: Melatonin (Melatonin) 3 mg PO QHS PRN PRN PRN Reason: INSOMNIA Morphine Sulfate () 4 mg IV Q3H PRN PRN PRN Reason: SEVERE PAIN (6-10/10) Last Admin: 12/11/18 05:12 Dose: 4 mg Documented by: Morphine Sulfate () 2 mg IV Q3H PRN PRN PRN Reason: MILD-MOD PAIN (1-5/10) Last Admin: 12/10/18 08:59 Dose: 2 mg Documented by: Ondansetron HCl (Zofran) 4 mg IV Q8H PRN PRN PRN Reason: NAUSEA/VOMITING Last Admin: 12/09/18 19:52 Dose: 4 mg Documented by: Oxycodone HCl (Oxyir) 5 mg PO Q4H PRN PRN PRN Reason: Moderate Pain (4-6/10) Last Admin: 12/11/18 08:05 Dose: 5 mg Documented by: Pantoprazole Sodium (Protonix) 40 mg PO DAILY NINA Last Admin: 12/10/18 09:00 Dose: 40 mg Documented by: Prochlorperazine Edisylate (Compazine Iv) 5 mg IV Q4H PRN PRN PRN Reason: NAUSEA/VOMITING Last Admin: 12/10/18 19:12 Dose: 5 mg Documented by: Sodium Chloride () 10 - 40 ml IV UD PRN PRN Reason: SALINE FLUSH Last Admin: 12/11/18 05:13 Dose: 10 ml Documented by: Temazepam (Restoril) 30 mg PO QHS PRN PRN PRN Reason: INSOMNIA Last Admin: 12/10/18 21:41 Dose: 15 mg Documented by: Medical Necessity - Tobacco Use Smoking Status: Former smoker Assessment/Plan All Active Problems (Last Updated 12/09/18 @ 13:23 by Blayne Santana DO) Colitis with rectal bleeding (Acute) Respiratory failure with hypoxia (Acute) Respiratory insufficiency (Acute) Sepsis (Acute) 1. near syncope * suspected * given shortness of breath, will check a CTA chest * I suspect the the shortness of breath may have been anxiety after the event 2. Sepsis * improving * Present on arrival * Secondary to colitis * Monitor 3. Colitis * Suspect infectious versus ischemic * Doubt inflammatory * Cipro and Flagyl 4. GI bleed * Secondary to colitis * Heme positive but without overt hematochezia * Dr. Hernandez consultation * Discussed with the patient that she will require colonoscopy but will be at the discretion of the surgeon as to when that will be done. Did inform her that it is possible may not be performed during this hospitalization so that we could allow the colitis to improve before doing so. * H/H stable 5. Acute respiratory insufficiency * Improved * Chest x-ray was unremarkable * Suspicion for PE is low * At least partially attributable to her abdominal distention and pain prohibiting firm having deep respirations * wean oxygen as tolerated * check ambulatory pulse ox as outpt. 6. VTE prophylaxis: Moderate risk. We will place the patient on SCDs as patient has thrombocytopenia and bruising at this time will hold off on chemical prophylaxis DW patient's at bedside. Code Visit Inpatient E&M: 86117 Subs Hosp L3
[2018-12-11] MEDS: Pantoprazole Sodium 40 MG Tablet PO (09:58)
[2018-12-11] MEDS: Ciprofloxacin 400 MG/200 ML BAG 200 MG IV ×2 (10:00→22:17)
[2018-12-11] MEDS: 0.9% Normal Saline 1,000 ML 100 ML IV (15:02)
--- NOTE | 2018-12-11 17:40 | PN.SURG_ITS ---
Patient Problems: Active and Suspected Problems (Last Updated 12/09/18 @ 13:23 by Blayne Santana DO) Colitis with rectal bleeding (Acute) Respiratory failure with hypoxia (Acute) Respiratory insufficiency (Acute) Sepsis (Acute) Subjective: some improvement in pain, but still right sided abdominal pain - Physical Exam Lungs: Clear to auscultation, Normal air movement Cardiovascular: Regular rate, No murmurs Abdomen: Bowel Sounds Present, Soft, Tender - right side Vital Signs Temp Pulse Resp BP Pulse Ox 99.5 F H 108 H 20 H 127/88 H 99 12/11/18 15:03 12/11/18 15:03 12/11/18 15:03 12/11/18 15:03 12/11/18 15:03 Oxygen Flow Rate (L/min) 2 Oxygen Delivery Method Nasal Cannula Weight: 130 kg Body Mass Index (BMI) 43.5 Intake and Output for Last 24 Hours 12/09/18 12/10/18 12/11/18 23:59 23:59 23:59 Intake Total 1557 / 3903 7512 / 8320 2795 / 2795 Output Total 1700 / 1700 0 / 0 Balance 1557 / 2903 5812 / 6620 2795 / 2795 Microbiology Past 72 Hours 12/09/18 17:40 Urine Culture - Preliminary Urine, Clean Catch Mixed Gram Positive Organisms 12/09/18 08:52 Stool Occult Blood (MADELEINE) - Final Stool Occult Blood Positive Laboratory Tests Past 24 Hrs 12/11/18 12/11/18 05:35 05:35 WBC 2.9 L RBC 3.67 L Hgb 11.1 L Hct 35.3 L MCV 96.2 MCH 30.2 MCHC 31.4 L RDW 17.8 H RDW Differential 60.1 H Plt Count 127 L MPV 9.7 Immature Gran % (Auto) 0.300 Neut % (Auto) 59.8 Lymph % (Auto) 27.5 [place] % (Auto) 11.1 H Eos % (Auto) 1.0 Baso % (Auto) 0.3 Absolute Neuts (auto) 1.7 L Absolute Lymphs (auto) 0.79 L Total Counted Not Reportable Sodium 134 L Potassium 3.9 Chloride 101 Carbon Dioxide 28.0 Anion Gap 5 BUN 7 Creatinine 1.01 Estim Creat Clear Calc 61.99 Est GFR (MDRD) Af Amer 73 Est GFR (MDRD) Non-Af 60 BUN/Creatinine Ratio 6.9 L Glucose 101 Calcium 8.6 Medical Necessity - Tobacco Use Smoking Status: Former smoker Assessment/Plan All Active Problems (Last Updated 12/09/18 @ 13:23 by Blayne Santana DO) Colitis with rectal bleeding (Acute) Respiratory failure with hypoxia (Acute) Respiratory insufficiency (Acute) Sepsis (Acute) Abdominal discomfort, history of reflux. upper and lower endoscopy performed. mild gastritis and dist esophagitis - continue PPI Colon - proximal ascending colon ischemic changes - very localized. Biopsies taken - site tattooed and clipped. would continue antibiotics and only clear liquids. CT scan report reviewed and images reviewed. body of dictation report talks about right-sided colitis but conclusion states descending colon colitis. images reviewed and colitis is noted in the cecum and ascending colon with thickening on CT scan. This is consistent with the findings noted on endoscopy. Biopsy results: Antral biopsy: Mild gastritis. See microscopic description and comment. B. GE junction, biopsy: A fragment of gastroesophageal mucosa with chronic inflammation. Intestinal metaplasia (goblet cell metaplasia) is not identified. See comment. C. Ileocecal biopsy: A fragment of colonic mucosa, no pathologic diagnosis. D. Ischemic mass, biopsy: Fragments of colonic mucosa with extensive necrosis, acute inflammation most likely represents fragments of ulcerated mucosa.. No viable mucosa is noted in the specimen. E. Descending colon, biopsy: A fragment of colonic mucosa, no pathologic diagnosis. F. Sigmoid colon, biopsy: Fragments of colonic mucosa, no pathologic diagnosis. it should be noted the base of the cecum was spared and the ileocecal valve biopsy demonstrated no abnormalities. This speaks against ischemic colitis. Agree this is most likely an atypical infectious colitis given its location.
[2018-12-11] MEDS: Temazepam 15 MG Capsule 30 MG PO (22:12)
[2018-12-12] MEDS: Morphine 4 MG/ML Syringe IV ×2 (02:51→06:57)
[2018-12-12] MEDS: 0.9% Normal Saline 1,000 ML 100 ML IV ×2 (02:51→20:18)
[2018-12-12] MEDS: 0.9% NaCl Peripheral Flush Adult/Peds IV ×4 (02:53→17:48)
[2018-12-12 03:00] VITALS: BP 128/65; PULSE 110; RESP 16; TEMP 37; O2SAT 97
[2018-12-12] MEDS: metroNIDAZOLE 500 MG/100 ML BAG 100 MG IV ×3 (05:13→20:38)
[2018-12-12 06:18] LABS: Absolute Lymphocyte Count 0.57 X10^3/ul (0.83-4.51); Absolute Neutrophil Count 1.6 X10^3/uL (2.0-7.7); Basophil# 0.01 X10^3/uL; Basophil% 0.4 % (0-1); Differential Indicated SCAN CRITERIA MET; Eosinophil# 0.02 X10^3/uL; Eosinophils% 0.8 % (0-5); Hematocrit 32.1 % (37-47); Hemoglobin 10.2 g/dl (12.0-15.0); Lymphocyte # 0.57 X10^3/ul (4.0); Lymphocyte % 23.8 % (19-41); Mean Corp Hgb Conc 31.8 g/gl (32-36); Mean Corpuscular Hgb 30.4 pg (27.0-32.0); Mean Corpuscular Volume 95.5 fL (81-99); Mean Platelet Vol. 9.1 fl (6.2-12.0); Monocyte# 0.22 X10^3/uL; Monocyte% 9.2 % (0-10); Neutrophil # 1.58 X10^3/uL (2.7-7.7); Neutrophil % 65.8 % (47-70); POSITIVE COUNT NO; POSITIVE DIFFERENTIAL YES; POSITIVE MORPHOLOGY NO; Platelet Count 106 K/mm3 (150-450); RBC Distribution Width CV 17.4 % (11.6-14.6); RBC Distribution Width SD 60.2 fl (35.1-43.9); Red Blood Count 3.36 M/mm3 (4.2-5.4); White Blood Count 2.4 K/mm3 (4.4-11.0)
[2018-12-12 06:27] LABS: Anion Gap 5 (5-15); BUN 4 mg/dL (7-18); Calcium,Total 8.6 mg/dL (8.5-10.1); Chloride 106 mmol/L (98-107); EST Glomerular Filtration Rate 79 mL/min (>60); Est Glom Filt Rate - Afr Amer 95 mL/min (>60); Estimated Creatinine Clearance 78.27 ml/min; Glucose 95 mg/dL (74-106); Potassium 3.9 mmol/L (3.5-5.1); Sodium Level 136 mmol/L (136-145)
--- NOTE | 2018-12-12 06:49 | PN.SURG_ITS ---
Patient Problems: Active and Suspected Problems (Last Updated 12/09/18 @ 13:23 by Blayne Santana DO) Colitis with rectal bleeding (Acute) Respiratory failure with hypoxia (Acute) Respiratory insufficiency (Acute) Sepsis (Acute) Subjective: less pain still some right lower quadrant pain - Physical Exam General: Alert, Oriented x3, Cooperative Lungs: Clear to auscultation, Normal air movement Cardiovascular: Regular rate, No murmurs Abdomen: Bowel Sounds Present, Soft, Tender - right paramedian without peritoneal signs Vital Signs Temp Pulse Resp BP Pulse Ox 98.6 F 110 H 16 128/65 H 97 12/12/18 03:00 12/12/18 03:00 12/12/18 03:00 12/12/18 03:00 12/12/18 03:00 Oxygen Flow Rate (L/min) 3 Oxygen Delivery Method Bi-pap Weight: 130 kg Body Mass Index (BMI) 43.5 Intake and Output for Last 24 Hours 12/10/18 12/11/18 12/12/18 23:59 23:59 23:59 Intake Total 7512 / 8320 2795 / 3674 1862 / 1862 Output Total 1700 / 1700 0 / 0 Balance 5812 / 6620 2795 / 3674 186 / 186 Microbiology Past 72 Hours 12/09/18 17:40 Urine Culture - Preliminary Urine, Clean Catch Mixed Gram Positive Organisms 12/09/18 08:52 Stool Occult Blood (MADELEINE) - Final Stool Occult Blood Positive Laboratory Tests Past 24 Hrs 12/12/18 12/12/18 06:02 06:02 WBC 2.4 L RBC 3.36 L Hgb 10.2 L Hct 32.1 L MCV 95.5 MCH 30.4 MCHC 31.8 L RDW 17.4 H RDW Differential 60.2 H Plt Count 106 L MPV 9.1 Immature Gran % (Auto) 0.000 Neut % (Auto) 65.8 Lymph % (Auto) 23.8 [place] % (Auto) 9.2 Eos % (Auto) 0.8 Baso % (Auto) 0.4 Absolute Neuts (auto) 1.6 L Absolute Lymphs (auto) 0.57 L Total Counted Pending Sodium 136 Potassium 3.9 Chloride 106 Carbon Dioxide 25.0 Anion Gap 5 BUN 4 L Creatinine 0.80 Estim Creat Clear Calc 78.27 Est GFR (MDRD) Af Amer 95 Est GFR (MDRD) Non-Af 79 BUN/Creatinine Ratio 5.0 L Glucose 95 Calcium 8.6 Medical Necessity - Tobacco Use Smoking Status: Former smoker Assessment/Plan All Active Problems (Last Updated 12/09/18 @ 13:23 by Blayne Santana DO) Colitis with rectal bleeding (Acute) Respiratory failure with hypoxia (Acute) Respiratory insufficiency (Acute) Sepsis (Acute) Abdominal discomfort, history of reflux. upper and lower endoscopy performed. mild gastritis and dist esophagitis - continue PPI Colon - proximal ascending colon ischemic changes - very localized. Biopsies taken - site tattooed and clipped. would continue antibiotics and only clear liquids. CT scan report reviewed and images reviewed. body of dictation report talks about right-sided colitis but conclusion states descending colon colitis. images reviewed and colitis is noted in the cecum and ascending colon with thickening on CT scan. This is consistent with the findings noted on endoscopy. Biopsy results: Antral biopsy: Mild gastritis. See microscopic description and comment. B. GE junction, biopsy: A fragment of gastroesophageal mucosa with chronic inflammation. Intestinal metaplasia (goblet cell metaplasia) is not identified. See comment. C. Ileocecal biopsy: A fragment of colonic mucosa, no pathologic diagnosis. D. Ischemic mass, biopsy: Fragments of colonic mucosa with extensive necrosis, acute inflammation most likely represents fragments of ulcerated mucosa.. No viable mucosa is noted in the specimen. E. Descending colon, biopsy: A fragment of colonic mucosa, no pathologic diagnosis. F. Sigmoid colon, biopsy: Fragments of colonic mucosa, no pathologic diagnosis. it should be noted the base of the cecum was spared and the ileocecal valve biopsy demonstrated no abnormalities. This speaks against ischemic colitis. Agree this is most likely an atypical infectious colitis given its location. patient is improving clinically. I'm comfortable with maintaining the patient on clear liquids until her pain resolves and discharging her on oral antibiotics. I would plan to have her follow-up in my office and perform repeat colonoscopy in approximately one month.
[2018-12-12 06:57] LABS: Differential Comment SCANNED
--- NOTE | 2018-12-12 08:50 | PCM.PN.HOSP ---
Patient Problems: Active and Suspected Problems (Last Updated 12/09/18 @ 13:23 by Blayne Santana DO) Colitis with rectal bleeding (Acute) Respiratory failure with hypoxia (Acute) Respiratory insufficiency (Acute) Sepsis (Acute) Subjective: still with RLQ abdominal pain. Worse with cough. States that she has not been taking oxycodone because just does not help and so has been taking the morphine instead. Vitals/I&O's: Vital Signs Temp Pulse Resp BP Pulse Ox 37.0 C 110 H 16 128/65 H 97 12/12/18 03:00 12/12/18 03:00 12/12/18 03:00 12/12/18 03:00 12/12/18 03:00 Oxygen Flow Rate (L/min) 3 Oxygen Delivery Method Bi-pap Weight: 130 kg Body Mass Index (BMI) 43.5 Intake and Output for Last 24 Hours 12/10/18 12/11/18 12/12/18 23:59 23:59 23:59 Intake Total 7512 / 8320 2795 / 3674 1861 Output Total 1700 / 1700 0 / 0 Balance 5812 / 6620 [facility]5 / 3674 1861 General: Alert, No apparent distress HEENT: Atraumatic, Normocephalic Oral: Moist Mucosa, No Gingival or Mucosal Lesions/ Ulcerations Neck: No Nodes, Thyroid Normal Size and Texture Lungs: Clear to auscultation, Normal air movement, No rhonchi, No wheeze, No rales Cardiovascular: Regular rate, Regular Rhythm, Normal S1, Normal S2, No murmurs Abdomen: Bowel Sounds Present, Soft, Non Tender, Obese, - - Less distention Extremities: No edema, No Calf Tenderness Skin: No rashes, No breakdown Psych/Mental Status: Normal Affect, Appropriate Microbiology Past 72 Hours 12/09/18 17:40 Urine, Clean Catch Urine Culture - Preliminary Mixed Gram Positive Organisms 12/09/18 08:52 Stool Stool Occult Blood (MADELEINE) - Final Occult Blood Positive Laboratory Results 12/12/18 06:02: WBC 2.4 L, RBC 3.36 L, Hgb 10.2 L, Hct 32.1 L, MCV 95.5, MCH 30.4, MCHC 31.8 L, RDW 17.4 H, RDW Differential 60.2 H, Plt Count 106 L, MPV 9.1, Immature Gran % (Auto) 0.000, Neut % (Auto) 65.8, Lymph % (Auto) 23.8, Sharkey % (Auto) 9.2, Eos % (Auto) 0.8, Baso % (Auto) 0.4, Absolute Neuts (auto) 1.6 L, Absolute Lymphs (auto) 0.57 L, Total Counted Not Reportable, Differential Comment SCANNED, Diff Path Review October12/12/18 06:02: Sodium 136, Potassium 3.9, Chloride 106, Carbon Dioxide 25.0, Anion Gap 5, BUN 4 L, Creatinine 0.80, Estim Creat Clear Calc 78.27, Est GFR (MDRD) Af Amer 95, Est GFR (MDRD) Non-Af 79, BUN/Creatinine Ratio 5.0 L, Glucose 95, Calcium 8.6 Current Medications Acetaminophen (Tylenol) 650 mg PO Q6H PRN PRN PRN Reason: Mild Pain (1-3)/Temp > 100.7 F Albuterol Sulfate (Ventolin Aerosols) 2.5 mg INHALATION Q2H PRN PRN PRN Reason: Shortness of Breath/Wheezing Last Admin: 12/10/18 03:20 Dose: 2.5 mg Documented by: Dextrose (D50w Syringe) 0 gm IV X1 PRN; Protocol PRN Reason: Hypoglycemia Glucagon () 1 mg IM .X1 PRN PRN Reason: Hypoglycemia Metronidazole (Flagyl) 500 mg in 100 mls @ 100 mls/hr IV Q8H [facility] Last Admin: 12/12/18 05:13 Dose: 100 mls/hr Documented by: Ciprofloxacin (Cipro) 400 mg in 200 mls @ 200 mls/hr IV Q12 [facility] Last Admin: 12/11/18 22:17 Dose: 200 mls/hr Documented by: Sodium Chloride () 1,000 mls @ 100 mls/hr IV .Q10H [facility] Last Admin: 12/12/18 02:51 Dose: 100 mls/hr Documented by: Melatonin (Melatonin) 3 mg PO QHS PRN PRN PRN Reason: INSOMNIA Morphine Sulfate () 4 mg IV Q4H PRN PRN Reason: BREAKTHROUGH PAIN (>4/10) Morphine Sulfate () 2 mg IV Q4H PRN PRN Reason: BREAKTHROUGH PAIN (>4/10) Ondansetron HCl (Zofran) 4 mg IV Q8H PRN PRN PRN Reason: NAUSEA/VOMITING Last Admin: 12/09/18 19:52 Dose: 4 mg Documented by: Oxycodone HCl (Oxyir) 5 - 10 mg PO Q4H PRN PRN PRN Reason: Moderate Pain (4-6/10) Pantoprazole Sodium (Protonix) 40 mg PO DAILY NINA Last Admin: 12/11/18 09:58 Dose: 40 mg Documented by: Prochlorperazine Edisylate (Compazine Iv) 5 mg IV Q4H PRN PRN PRN Reason: NAUSEA/VOMITING Last Admin: 12/10/18 19:12 Dose: 5 mg Documented by: Sodium Chloride () 10 - 40 ml IV UD PRN PRN Reason: SALINE FLUSH Last Admin: 12/12/18 06:57 Dose: 10 ml Documented by: Temazepam (Restoril) 30 mg PO QHS PRN PRN PRN Reason: INSOMNIA Last Admin: 12/11/18 22:12 Dose: 30 mg Documented by: Medical Necessity - Tobacco Use Smoking Status: Former smoker Assessment/Plan All Active Problems (Last Updated 12/09/18 @ 13:23 by Blayne Santana DO) Colitis with rectal bleeding (Acute) Respiratory failure with hypoxia (Acute) Respiratory insufficiency (Acute) Sepsis (Acute) 1. near syncope Vasovagal Resolved CTA negative for PE Reassurance provided I suspect the the shortness of breath may have been anxiety after the event 2. Sepsis improving Present on arrival Secondary to colitis Monitor 3. Colitis [place]bell infectious. Discussed with Dr. Humphries and I does not feel that this is actually ischemic Doubt inflammatory Cipro and Flagyl Advance diet to full's and observe Patient with abdominal pain due to colitis. Patient has been foregoing the oxycodone because it does not work for her. I explained to her that morphine is very fast acting and but outside the system quicker. Told her that we will work on further optimizing pain medication with oral with the oxycodone giving her a range of 5 to 10 mg. Told her that the morphine will be changed to just breakthrough. 4. GI bleed Secondary to colitis Heme positive but without overt hematochezia H/H stable 5. Acute respiratory insufficiency Improved Chest x-ray was unremarkable Suspicion for PE is low At least partially attributable to her abdominal distention and pain prohibiting firm having deep respirations wean oxygen as tolerated check ambulatory pulse ox as outpt. 6. VTE prophylaxis: Moderate risk. We will place the patient on SCDs as patient has thrombocytopenia and bruising at this time will hold off on chemical prophylaxis Code Visit Inpatient E&M: 98435 Subs Hosp L2
[2018-12-12 09:00] VITALS: BP 121/99; PULSE 116; RESP 18; TEMP 36.8; O2SAT 98
[2018-12-12 09:15] VITALS: O2SAT 96
[2018-12-12] MEDS: oxyCODONE 5 MG Tablet PO ×4 (09:35→23:58)
[2018-12-12] MEDS: proCHLORPERazine 10 MG/2 ML Vial 5 MG IV ×2 (09:35→17:48)
[2018-12-12] MEDS: Pantoprazole Sodium 40 MG Tablet PO (09:35)
[2018-12-12] MEDS: Ciprofloxacin 400 MG/200 ML BAG 200 MG IV ×2 (09:43→22:02)
[2018-12-12 11:54] LABS: Pathologist Review Reviewed
[2018-12-12 15:00] VITALS: RESP 18
[2018-12-12 16:29] VITALS: BP 108/63; PULSE 101; RESP 18; TEMP 36.3; O2SAT 96
[2018-12-12 20:25] VITALS: BP 106/70; PULSE 102; RESP 18; TEMP 37; O2SAT 96
[2018-12-12] MEDS: Temazepam 15 MG Capsule 30 MG PO (21:57)
[2018-12-13] VITALS (9 sets, daily range): BP systolic 107–118; BP diastolic 74–77; PULSE 90–99; RESP 18–20; TEMP 36.7–37.2; O2SAT 85–98
[2018-12-13] MEDS: metroNIDAZOLE 500 MG/100 ML BAG 100 MG IV (04:51)
[2018-12-13] MEDS: oxyCODONE 5 MG Tablet PO ×3 (05:08→13:27)
--- NOTE | 2018-12-13 07:24 | PCM.PN.SRG ---
Patient Problems: Active and Suspected Problems (Last Updated 12/09/18 @ 13:23 by Blayne Santana DO) Colitis with rectal bleeding (Acute) Respiratory failure with hypoxia (Acute) Respiratory insufficiency (Acute) Sepsis (Acute) Subjective: less pain, developing a cold sore - Physical Exam General: Alert, Oriented x3, Cooperative Lungs: Clear to auscultation, Normal air movement Cardiovascular: Regular rate, Regular Rhythm Abdomen: Bowel Sounds Present, Soft, Tender - mimimal right sided Vital Signs Temp Pulse Resp BP Pulse Ox 98.1 F 98 18 115/74 97 12/13/18 04:55 12/13/18 04:55 12/13/18 04:55 12/13/18 04:55 12/13/18 04:55 Oxygen Flow Rate (L/min) 2 Oxygen Delivery Method Bi-pap Weight: 130 kg Body Mass Index (BMI) 43.5 Intake and Output for Last 24 Hours 12/11/18 12/12/18 12/13/18 23:59 23:59 23:59 Intake Total 2795 / 3674 4512 / 5459 947 / 947 Output Total 0 / 0 100 / 100 Balance 2795 / 3674 4512 / 5359 847 / 847 Microbiology Past 72 Hours 12/09/18 17:40 Urine Culture - Final Urine, Clean Catch Mixed Gram Positive Organisms Laboratory Tests Past 24 Hrs 12/12/18 06:02 Diff Path Review Reviewed Medical Necessity - Tobacco Use Smoking Status: Former smoker Assessment/Plan All Active Problems (Last Updated 12/09/18 @ 13:23 by Blayne Santana DO) Colitis with rectal bleeding (Acute) Respiratory failure with hypoxia (Acute) Respiratory insufficiency (Acute) Sepsis (Acute) Abdominal discomfort, history of reflux. upper and lower endoscopy performed. mild gastritis and dist esophagitis - continue PPI Colon - proximal ascending colon ischemic changes - very localized. Biopsies taken - site tattooed and clipped. would continue antibiotics and only clear liquids. CT scan report reviewed and images reviewed. body of dictation report talks about right-sided colitis but conclusion states descending colon colitis. images reviewed and colitis is noted in the cecum and ascending colon with thickening on CT scan. This is consistent with the findings noted on endoscopy. Biopsy results: Antral biopsy: Mild gastritis. See microscopic description and comment. B. GE junction, biopsy: A fragment of gastroesophageal mucosa with chronic inflammation. Intestinal metaplasia (goblet cell metaplasia) is not identified. See comment. C. Ileocecal biopsy: A fragment of colonic mucosa, no pathologic diagnosis. D. Ischemic mass, biopsy: Fragments of colonic mucosa with extensive necrosis, acute inflammation most likely represents fragments of ulcerated mucosa.. No viable mucosa is noted in the specimen. E. Descending colon, biopsy: A fragment of colonic mucosa, no pathologic diagnosis. F. Sigmoid colon, biopsy: Fragments of colonic mucosa, no pathologic diagnosis. it should be noted the base of the cecum was spared and the ileocecal valve biopsy demonstrated no abnormalities. This speaks against ischemic colitis. Agree this is most likely an atypical infectious colitis given its location. patient is improving clinically. I'm comfortable with maintaining the patient on clear liquids until her pain resolves and discharging her on oral antibiotics. I would plan to have her follow-up in my office and perform repeat colonoscopy in approximately one month.
--- NOTE | 2018-12-13 08:52 | NURSING ---
spo2 93% on RA at rest. Walked in shah and spo2 was 85% and pt had to stop b/c she was lightheaded and dizzy.
[2018-12-13] MEDS: Albuterol 2.5 MG/3 ML VIAL.NEB. INHALATION (08:57)
[2018-12-13] MEDS: Pantoprazole Sodium 40 MG Tablet PO (09:25)
[2018-12-13] MEDS: Ciprofloxacin 400 MG/200 ML BAG 200 MG IV (09:26)
--- NOTE | 2018-12-13 10:45 | CASEMGMT ---
Case Management Progress Note: 1002- Called Santa [phone] at [facility], No answer, Left a VM. 1011- Return Call from Santa and Confirmed patient Insurance MMO is In Network with [facility]. Patient has Bipap through [facility] CM s/w Patient states states coordination to be done with her who is at work today until 1400 but will also be going to some family members games later today, states he is available all day tomorrow. Patient is for PDC today, pending O2 testing amb w/O2 and Charge nurse Vidhi nj green sheet for coordination placed in patient chart. Patient is agreeable to use [employer] for Home Oxygen. Teresa Lewis RNCM
--- NOTE | 2018-12-13 11:12 | PCM.DC ---
- Discharge Diagnoses Current Active Problems: Current Active and Chronic Problems (Last Updated 12/09/18 @ 13:23 by Blayne Santana DO) Colitis with rectal bleeding (Acute) Respiratory failure with hypoxia (Acute) Respiratory insufficiency (Acute) Sepsis (Acute) Reason(s) for Visit for Discharge Instructions: Colitis You will use the following diet at home:: Other - bland, advance as tolerated Your food should be the consistency of: Regular Discharge Activity: Return to Normal Activity, No Restrictions Call your doctor if you observe: Fever of 101 or Higher, Inability to urinate, Shortness of breath Allergies/Adverse Reactions: Allergies Penicillins Allergy (Verified 05/03/18 09:06) Unknown DUST Allergy (Uncoded 05/03/18 09:06) Unknown SEASONAL Allergy (Uncoded 05/03/18 09:06) Unknown Medications to take at Discharge Lisinopril [Zestril] 10 mg PO DAILY 03/05/17 Temazepam [Restoril] 30 mg PO QHS PRN PRN 01/17/18 Albuterol Inhaler [Ventolin Hfa] 1 - 2 puff INHALATION Q4H PRN PRN 12/09/18 Pantoprazole Sodium [Protonix] 40 mg PO DAILY 12/09/18 Rosuvastatin Calcium 40 mg PO QHS 12/09/18 Acetaminophen [Tylenol Tablet] 650 mg PO Q6H PRN PRN tablet 12/13/18 Ciprofloxacin [Cipro] 500 mg PO BID #6 tab 12/13/18 Metronidazole 500 mg PO TID #9 tab 12/13/18 Oxycodone [Oxyir] 4 mg PO Q6H PRN 3 Days #12 tablet 12/13/18 The following prescriptions were given: Ciprofloxacin [Cipro] 500 mg PO BID #6 tab Transmission Status: Pending to [facility] Metronidazole 500 mg PO TID #9 tab Transmission Status: Pending to [facility] Oxycodone [Oxyir] 4 mg PO Q6H PRN 3 Days #12 tablet PRN Reason: Moderate Pain (4-6/10) Transmission Status: Sent to [facility] Primary Care Physician: Karl Moran MD [Primary Care Provider] - Within 2 Weeks Test Results: Test results from this visit will be discussed in further detail at your follow-up appointment, if applicable. Please Follow Up With: Rui Hernandez MD When: 1 month Proposed Discharge Date: 12/13/18
--- NOTE | 2018-12-13 11:17 | DS.PCM_ITS ---
Discharge Date and Diagnosis - Problem List Patient Problems: Active and Suspected Problems (Last Updated 12/09/18 @ 13:23 by Blayne Santana DO) Colitis with rectal bleeding (Acute) Respiratory failure with hypoxia (Acute) Respiratory insufficiency (Acute) Sepsis (Acute) Date of Admission: 12/09/18 Date of Discharge: 12/13/18 - Primary Discharge Diagnosis Active and Suspected Problems (Last Updated 12/09/18 @ 13:23 by Blayne Santana DO) Colitis with rectal bleeding (Acute) Respiratory failure with hypoxia (Acute) Respiratory insufficiency (Acute) Sepsis (Acute) 1. Sepsis * improving * Present on arrival * Secondary to colitis * Monitor 2. Colitis * infectious. Discussed with Dr. Humphries and I does not feel that this is actually ischemic * Doubt inflammatory * Cipro and Flagyl * Advance diet to full's and observe * Patient with abdominal pain due to colitis. Patient has been foregoing the oxycodone because it does not work for her. I explained to her that morphine is very fast acting and but outside the system quicker. Told her that we will work on further optimizing pain medication with oral with the oxycodone giving her a range of 5 to 10 mg. Told her that the morphine will be changed to just breakthrough. 3. GI bleed * Secondary to colitis * Heme positive but without overt hematochezia * H/H stable 4. Acute respiratory insufficiency * Improved * Chest x-ray was unremarkable * Suspicion for PE is low * At least partially attributable to her abdominal distention and pain prohibiting firm having deep respirations * wean oxygen as tolerated * check ambulatory pulse ox as outpt. 5. near syncope * Vasovagal * Resolved * CTA negative for PE * Reassurance provided * I suspect the the shortness of breath may have been anxiety after the event - Secondary Discharge Diagnosis Chronic Problems (Last Updated 12/09/18 @ 13:23 by Blayne Santana DO) Gastroesophageal reflux disease (Chronic) Hypertension (Chronic) Hospital Course and Treatment Imaging Results: Clinical Impression(s) from Imaging Studies Abdomen/Pelvis CT 12/09/18 08:51 IMPRESSION: Fatty infiltration of the liver. Findings suggestive of colitis of the descending colon. Status post cholecystectomy, appendectomy and hysterectomy. Electronically Signed: Kamran Velazquez, at 10:52 EDT , Service support , Chest X-Ray 12/09/18 08:51 IMPRESSION: No acute abnormality is seen. Electronically Signed: Kamran Castrejonrhona, at 10:48 EDT , Service support , KUB X-Ray 12/10/18 08:04 IMPRESSION: A localization clip is seen in the descending colon adjacent to the hepatic flexure. Electronically Signed: Kamran Cartereben, at 9:18 EDT , Service support , Chest CTA 12/11/18 09:09 IMPRESSION: Right lower lobe atelectasis and/or infiltrate with thickening of the right major fissure. Electronically Signed: Kamran Marcus, at 10:20 EDT , Service support , Rui Hernandez MD: general surgery Operations: None Procedures: Colonoscopy Summary of Care Provided: The patient is a 58 year old F resents with abdominal pain and was found to have colitis. Patient was started on empiric antibiotics with Cipro Floxin and F lagyl. Patient was seen in consultation by Dr. Humphries of general surgery who performed an colonoscopy. Colonoscopy showed ascending colitis. Of note, the CAT scan finding stated that was colitis of the descending colon but is actually of the ascending colon. Biopsy showed some ischemic changes but clinically felt to be more ischemic in etiology. Patient overall has slowly improved. Patient' s hospital station was comp gated by a near syncopal episode and she did undergo a CT angiogram at that time which was negative for PE did show some right lower lobe atelectasis. Patient was ambulated today and was 85% on room air patient will require oxygen with activity. Patient is a former smoker and does recommend patient to follow-up with a health worker to see about getting outpatient for pulmonary function test as well. Otherwise patient has been slowly doing well. Patient's diet will be advised to be bland and advance as tolerated. Patient follow-up with Dr. Humphries about a month's time for repeat colonoscopy. [] Patient Problems: Active and Suspected Problems (Last Updated 12/09/18 @ 13:23 by Blayne Santana DO) Colitis with rectal bleeding (Acute) Respiratory failure with hypoxia (Acute) Respiratory insufficiency (Acute) Sepsis (Acute) - Physical Exam General: Alert, No apparent distress HEENT: Atraumatic, Normocephalic Oral: Moist Mucosa, No Gingival or Mucosal Lesions/ Ulcerations Neck: No Nodes, Thyroid Normal Size and Texture Lungs: Clear to auscultation, Normal air movement, No rhonchi, No wheeze Cardiovascular: Regular rate, Regular Rhythm, Normal S1, Normal S2, No murmurs Abdomen: Bowel Sounds Present, Soft, Non-Distended, Obese, Tender - right Lower quadrant Extremities: No clubbing, No edema Psych/Mental Status: Normal Affect, Appropriate Vital Signs Temp Pulse Resp BP Pulse Ox 36.7 C 99 20 H 115/74 98 12/13/18 04:55 12/13/18 08:57 12/13/18 08:57 12/13/18 04:55 12/13/18 10:27 Oxygen Flow Rate (L/min) 3 Oxygen Delivery Method Nasal Cannula Weight: 130 kg Body Mass Index (BMI) 43.5 Intake and Output for Last 24 Hours 12/11/18 12/12/18 12/13/18 23:59 23:59 23:59 Intake Total 2795 / 3674 4512 / 5459 947 / 947 Output Total 0 / 0 100 / 100 Balance 2795 / 3674 4512 / 5359 847 / 847 Microbiology Past 72 Hours 12/09/18 17:40 Urine Culture - Final Urine, Clean Catch Mixed Gram Positive Organisms Laboratory Tests Past 24 Hrs 12/12/18 06:02 Diff Path Review Reviewed Discharge Diet: - - bland, advance as tolerated Discharge Activity: Return to Normal Activity, No Restrictions Call your doctor if you observe: Fever of 101 or Higher, Inability to urinate, Shortness of breath Home Medications: Medications to take at Discharge Lisinopril [Zestril] 10 mg PO DAILY 03/05/17 Temazepam [Restoril] 30 mg PO QHS PRN PRN 01/17/18 Albuterol Inhaler [Ventolin Hfa] 1 - 2 puff INHALATION Q4H PRN PRN 12/09/18 Pantoprazole Sodium [Protonix] 40 mg PO DAILY 12/09/18 Rosuvastatin Calcium 40 mg PO QHS 12/09/18 Acetaminophen [Tylenol Tablet] 650 mg PO Q6H PRN PRN tablet 12/13/18 Ciprofloxacin [Cipro] 500 mg PO BID #6 tab 12/13/18 Metronidazole 500 mg PO TID #9 tab 12/13/18 Oxycodone [Oxyir] 4 mg PO Q6H PRN 3 Days #12 tablet 12/13/18 Following Prescrptions Were Given to Patient: Ciprofloxacin [Cipro] 500 mg PO BID #6 tab Transmission Status: Pending to [facility] Metronidazole 500 mg PO TID #9 tab Transmission Status: Pending to [facility] Oxycodone [Oxyir] 4 mg PO Q6H PRN 3 Days #12 tablet PRN Reason: Moderate Pain (4-6/10) Transmission Status: Sent to [facility] Primary Care Physician: Karl Moran MD [Primary Care Provider] - Within 2 Weeks Please Follow Up With: Rui Hernandez MD When: 1 month Disposition: Home Minutes spent on discharge:: 32 Patient Condition:: Good Medical Necessity - Tobacco Use Smoking Status: Former smoker Meaningful Use Info Meaningful Use Diagnoses (Choose all that apply): None applicable Code Visit Inpatient E&M: 63269 Disch Hosp
--- NOTE | 2018-12-13 12:44 | NURSING ---
Pt was up and walking with charge nurse Vidhi. She was initially on room air. When up and walking she got lightheaded and said she feels weak. Spo2 on room air is noted at 84%. Pt is placed on 2 l nc spo2 on walking room air 94%. notified and further assessment of pt noted that she has difficulty with endurance and distance in ambulation. She sates on admission she had to park at end of Er parking lot and when she did make it to the ER she was hypoxic and cyanotic. Pt life style in activity is minimum she does not go any distance other than in her immediate home. Case management notified and pt is to be discharged with home oxygen.
--- NOTE | 2018-12-16 12:05 | CASEMGMT ---
SIMON CM DC PHONE CALL DC DATE: 12/13/18 DC Disposition: Home Diagnosis on Discharge: Colitis, Sepsis LACE/STRATA: 02/04 Attempted call to cell phone. No answer, no message picked up. Curt LYNCHN RN ACM
== END 2018-12-13 16:35 | disposition home or self-care (01) | DRG 872 ==
LOC: ED 11:40 → MS2 11:56
PROVIDERS: Surgery; Emergency Provider Emergency Medicine; Family Provider Family Medicine; PCP Family Medicine
PROC: 0DJD8ZZ Inspection of Lower Intestinal Tract, Via Natural or Artificial Opening Endoscopic (ICD-10-PCS; CPT 45378; principal; 2018-12-10 07:10)
DX: A41.9 Sepsis, unspecified organism (principal); A09 Infectious gastroenteritis and colitis, unspecified; G47.33 Obstructive sleep apnea (adult) (pediatric); K57.30 Diverticulosis of large intestine without perforation or abscess without bleeding; K29.70 Gastritis, unspecified, without bleeding; Z87.891 Personal history of nicotine dependence; D69.6 Thrombocytopenia, unspecified; R06.89 Other abnormalities of breathing; R55 Syncope and collapse; K21.0 Gastro-esophageal reflux disease with esophagitis; I10 Essential (primary) hypertension
CPT/HCPCS: 36415; 36600; 71046; 71275; 74018; 74177; 80048; 80053; 81001; 82274; 82803; 83605; 84484; 85025; 85610; 85730; 87086; 87088; 88305; 88313; 88342; 93005; 94640; 97802; 99283; J7030; Q9967; A4216; A4648; J0744; J2405

== ENCOUNTER 2018-12-22 13:19 | Inpatient (IN) | payer OTHER, MEDICARE, SELFPAY ==
[2018-12-10 06:38] VITALS: BMI 43.5
[2018-12-22] VITALS (12 sets, daily range): BP systolic 100–145; BP diastolic 62–84; PULSE 79–99; RESP 16–20; TEMP 36.5–36.9; O2SAT 94–100; BMI 42.4; BMI 42.7
--- NOTE | 2018-12-22 13:47 | EKG12_ITS ---
Test Reason : Blood Pressure : / mmHG Vent. Rate : 085 BPM Atrial Rate : 085 BPM P-R Int : 156 ms QRS Dur : 124 ms QT Int : 408 ms P-R-T Axes : 052 078 -05 degrees QTc Int : 485 ms Normal sinus rhythm Right bundle branch block T wave abnormality, consider lateral ischemia Abnormal ECG Confirmed by RADHA CLINTON, MG ([id number]), story editor NAVYA CLAY ([id number]) on 12/24/2018 1:44:08 PM Referred By: Javier Xiao Confirmed By:MG GARCIA MD
--- NOTE | 2018-12-22 13:47 | CT_ITS ---
STUDY: CT ABDOMEN AND PELVIS WITH CONTRAST REASON FOR EXAM: Female, 58 years old. Question colitis. Umbilical hernia. RADIATION DOSAGE (If Supplied By Facility): CTDIvol = ( 30.86 ) mGy, DLP = ( 3186.41 ) mGycm TECHNIQUE: Transaxial images were obtained from the dome of the diaphragm to the symphysis pubis without oral contrast. 100 IV Isovue 370 was administered. Sagittal and coronal images were reconstructed. Individualized dose optimization techniques were used for this CT. COMPARISON: 12/09/2018. FINDINGS: Fibrotic atelectatic changes versus pneumonia in the right lower lobe. This is new compared to the prior study. Visualized heart is normal. 1.3 cm low-attenuation lesion in the left lobe of the liver, not consistent with a simple cyst. The liver is otherwise unremarkable. The gallbladder is unremarkable. The spleen is mildly enlarged measuring 15 cm. Normal pancreas. The adrenal glands are normal. Contrast in the renal collecting systems due to earlier injection. 1.6 cm mid pole cyst on the right. Kidneys are otherwise unremarkable. No hydronephrosis. The aorta is normal in caliber with moderate atherosclerotic calcification. There is no free fluid, free air, or organized collection. No bowel obstruction or inflammatory change. Diverticulosis. No acute diverticulitis. Urinary bladder is unremarkable. Normal abdominal wall. No demonstrated hernia. Moderate S-shaped scoliosis of the thoracolumbar spine. Status post laminectomy and posterior fusion L3-L5. CT/Abdomen/Pelvis W IV Cont ONLY IMPRESSION: 1. Fibrotic atelectatic changes are favored over pneumonia in the right lower lobe. 2. A 1.3 cm lesion in the left lobe of the liver, not adequately characterized. If there is known primary malignancy or elevated LFTs, consider multiphase, contrast enhanced MRI for further evaluation. 3. Mild splenic enlargement. 4. Right renal cyst. Additional chronic changes detailed above. Electronically Signed: Nisa Flores MD at 16:45 EDT Tel , Service support ,
--- NOTE | 2018-12-22 13:48 | CT_ITS ---
STUDY: CTA CHEST REASON FOR EXAM: Female, 58 years old. SOB, cough. RADIATION DOSAGE (If Supplied By Facility): CTDIvol = ( 30.86 ) mGy, DLP = ( 3168.41 ) mGycm TECHNIQUE: The examination was performed with the intravenous administration of 100 IV Isovue 370. Post-processing of the angiographic images was performed, with multiplanar reformation and 3D reconstruction. Individualized dose optimization techniques were used for this CT. COMPARISON: 12/11/2018. FINDINGS: IV line infiltrated, and pulmonary arterial opacification is suboptimal. The heart and pericardium are normal. The aorta is normal in caliber, with no aneurysm or dissection. There is no mediastinal mass or adenopathy. There is no hilar or axillary adenopathy. No central pulmonary embolus. Small or peripheral emboli could be missed due to suboptimal opacification. There is no pleural effusion. Airspace disease is noted in the superior segment of the right lower lobe, consistent with pneumonia. This is increased compared to the prior study. Mild fibrotic changes are noted in the lung bases bilaterally. There is no osseous abnormality. CT/CTA Chest W/WO Contrast IMPRESSION: 1. Right lower lobe pneumonia. 2. No obvious pulmonary emboli. Evaluation is limited due to suboptimal pulmonary arterial opacification. Electronically Signed: Nisa Flores MD at 16:57 EDT Tel , Service support ,
[2018-12-22] MEDS: Ipratropium/Albuterol Sulfate 3 ML AMPUL.NEB INHALATION (14:08)
[2018-12-22] MEDS: Ondansetron 4 MG/2 ML Vial IV (14:41)
[2018-12-22] MEDS: Morphine 4 MG/ML Syringe IV (14:41)
[2018-12-22 14:42] LABS: Absolute Lymphocyte Count 0.81 X10^3/uL (0.83-4.51); Absolute Neutrophil Count 1.5 X10^3/uL (2.0-7.7); Basophil# 0.01 X10^3/uL; Basophil% 0.4 % (0-1); Eosinophil# 0.01 X10^3/uL; Eosinophils% 0.4 % (0-5); Hematocrit 39.4 % (37-47); Lymphocyte # 0.81 X10^3/ul (4.0); Lymphocyte % 31.5 % (19-41); Mean Corp Hgb Conc 30.5 g/dL (32-36); Mean Corpuscular Hgb 29.8 pg (27.0-32.0); Mean Corpuscular Volume 97.8 fL (81-99); Mean Platelet Vol. 9.4 fl (6.2-12.0); Monocyte# 0.24 X10^3/uL; Monocyte% 9.3 % (0-10); NRBC Flagged by Analyzer 0 % (0-5); Neutrophil # 1.49 X10^3/uL (2.7-7.7); Platelet Count 178 K/mm3 (150-450); RBC Distribution Width CV 15.4 % (11.6-14.6); RBC Distribution Width SD 55.8 fl (35.1-43.9); Red Blood Count 4.03 M/mm3 (4.2-5.4); White Blood Count 2.6 K/mm3 (4.4-11.0)
[2018-12-22] MEDS: 0.9% Normal Saline 1,000 ML 1000 ML IV (14:42)
[2018-12-22 15:04] LABS: ALB/GLOB Ratio 1.3 RATIO (0.9-2.4); AST(SGOT) 29 U/L (15-37); Alanine Aminotransfer ALT/SGPT 22 U/L (13-56); Albumin, Serum 3.8 g/dL (3.2-5.0); Alkaline Phosphatase 69 U/L (45-117); Anion Gap 4 (5-15); BUN 14 mg/dL (7-18); BUN/Creat Ratio 15.1 RATIO (10-20); Calcium,Total 9.1 mg/dL (8.5-10.1); Chloride 106 mmol/L (98-107); Creatinine, Serum 0.93 mg/dL (0.55-1.02); EST Glomerular Filtration Rate 66 mL/min (>60); Est Glom Filt Rate - Afr Amer 80 mL/min (>60); Estimated Creatinine Clearance 67.33 ml/min; Globulin 2.9 g/dL (2.2-4.2); Glucose 88 mg/dL (74-106); Potassium 3.7 mmol/L (3.5-5.1); Protein, Total 6.7 g/dL (6.4-8.2); Sodium Level 137 mmol/L (136-145)
[2018-12-22 15:14] LABS: Lactic Acid 1.1 mmol/L (0.4-2.0)
--- NOTE | 2018-12-22 17:05 | ED.DCSUM_ITS ---
- ER Visit Summary Date of Service: 12/22/18 Chief Complaint: Abdominal pain and shortness of breath History of Present Illness: The patient is a [address] Moran. She reports that she has had abdominal pain for weeks. She was admitted to the hospital on December 09 and had a colonoscopy which revealed a sending colitis. She reports that her pain has not improved. It is an aching, sharp pain that is 7 out of 10 in severity now and 9 out of 10 in severity at worst. It is increased with coughing or movement. She decreased with remaining still in oxycodone. She reports that her stools have been darker in color/maroon, but this is sporadic. Patient reports that he has shortness of breath that is mild at rest. Is moderate to severe with walking. She is used her albuterol MDI with minimal relief. She reports she has had a fever to 100.2 degrees and chills. She has a cough productive green sputum without blood. She reports that her shortness of breath is worsened over the past week. Physical Examination: Vitals: Stable. Afebrile. General: Well-nourished and well-developed. Head: Normocephalic atraumatic. Neck: Supple, no lymphadenopathy. No JVD. Nontender. Cardiovascular: Regular rate and rhythm. No murmurs. Respiratory: No respiratory distress. Mild wheezing bilaterally with good air movement. Abdominal: Soft, mild right lower quadrant tenderness to palpation, nondistended, normal bowel sounds. No guarding, rebound, or peritoneal signs. Back: Nontender. Extremities: Nontender, no edema. Skin: Normal color, no rash. Neurologic: Alert and oriented ?3. Cranial nerves II through XII are intact. Normal strength and sensation. Psych: Normal affect. Test Results: EKG is sinus at 85 with T wave inversions in leads II, 3, and the precordium. This is unchanged from earlier this month. Troponin is negative. LFTs are normal. Chem-7 is normal. CBC shows a white count of 2.6. Her hemoglobin is 12.0. It was 10.2-12.4 earlier this month. Lactic acid is 1.1. Clinical Impression(s) from Imaging Studies Abdomen/Pelvis CT 12/22/18 13:47 IMPRESSION: 1. Fibrotic atelectatic changes are favored over pneumonia in the right lower lobe. 2. A 1.3 cm lesion in the left lobe of the liver, not adequately characterized. If there is known primary malignancy or elevated LFTs, consider multiphase, contrast enhanced MRI for further evaluation. 3. Mild splenic enlargement. 4. Right renal cyst. Additional chronic changes detailed above. Electronically Signed: Nisa Flores MD at 16:45 EDT Tel , Service support , ADDENDUM: 12/22/18 1702 Chest CTA 12/22/18 13:48 IMPRESSION: 1. Right lower lobe pneumonia. 2. No obvious pulmonary emboli. Evaluation is limited due to suboptimal pulmonary arterial opacification. Electronically Signed: Nisa Flores MD at 16:57 EDT Tel , Service support , Emergency Department Course and Treatment: Patient was treated with albuterol Atrovent aerosols. When the CT of her chest returned she was given Levaquin and vancomycin IV. She is allergic to penicillin. She was given morphine and Zofran IV. She is resting more comfortably. Treatment Plan: The patient was admitted to the hospital earlier this month. Therefore, she will be treated as a healthcare acquired pneumonia. She was discussed with Dr. Xiao and will be admitted for further evaluation and treatment. Disposition: Admitted in improved condition. Impression: 1. Pneumonia, healthcare acquired. 2. Hypoxia. This note was generated with [employer] software. It may contain incorrect words, spelling, and punctuation that were not noted in review of the chart prior to signing ED Disposition - Plan for ED Patient: Referrals: Karl Moran MD [Primary Care Provider] -
[2018-12-22] MEDS: levoFLOXacin IV 750 MG/150 ML BAG 100 MG IV (18:09)
--- NOTE | 2018-12-22 18:30 | HP.PCM_ITS ---
Problem List (1) Gastroesophageal reflux disease Status: Chronic (2) Hypertension Status: Chronic (3) Colitis with rectal bleeding Status: Chronic (4) Respiratory failure with hypoxia Status: Acute (5) Respiratory insufficiency Status: Acute (6) Sepsis Status: Acute History of Present Illness Date of Admission: 12/22/18 Chief Complaint: Shortness of breath and abdominal pain The patient is a 58 year old F with history of recent diagnosis of ulcerative colitis, discharged on 12/13/2018 after management of sepsis secondary to colitis on Cipro and Flagyl with GI bleed came to ER with abdominal pain and shortness of breath since discharge. As per patient,, abdominal pain has not gotten better and varies 6-7 to 10/10 intensity intermittently. As per patient, Dr. Hernandez told her she has ulcerative colitis. She denies any active bright red or melena but has sometimes darker stool. Last time, she was discharged on 2 L of oxygen and at that time chest x-ray was unremarkable. Over the period of last 2 weeks shortness of breath has gotten worse and came to ED. She also complained of brownish thick phlegm productive cough and feels like chest congestion and not able to bring up sputum. Also complaining of intermittent chills with fever. In ED, she was found mild tachypnea respiratory 20/min, no fever and blood pressure are stable lactic acid 1.1. [] The patient had CTA chest which shows right lower lobe pneumonia but no obvious pulmonary emboli. Before that, she had CT abdomen pelvis which shows no bowel obstruction or inflammatory changes and No acute diverticulitis. Past Medical History Past Medical History (Chronic Problems): Chronic Problems (Last Updated 12/09/18 @ 13:23 by Blayne Santana DO) Gastroesophageal reflux disease (Chronic) Hypertension (Chronic) Colitis with rectal bleeding (Chronic) Medical History: Medical History (Last Updated 12/09/18 @ 13:23 by Blayne Santana DO) Anxiety F41.9 Arthritis M19.90 History of diarrhea Z87.898 History of umbilical hernia Z87.19 Hypertension I10 Allergies Penicillins Allergy (Verified 12/22/18 13:21) Unknown DUST Allergy (Uncoded 12/22/18 13:21) Unknown SEASONAL Allergy (Uncoded 12/22/18 13:21) Unknown Home Medications: Ambulatory Orders Medication Instructions Recorded Lisinopril [Zestril] 10 mg PO DAILY 03/05/17 Temazepam [Restoril] 30 mg PO QHS PRN PRN 01/17/18 Albuterol Inhaler [Ventolin Hfa] 1 - 2 puff INHALATION Q4H PRN PRN 12/09/18 Pantoprazole Sodium [Protonix] 40 mg PO DAILY 12/09/18 Rosuvastatin Calcium 40 mg PO QHS 12/09/18 Acetaminophen [Tylenol Tablet] 650 mg PO Q6H PRN PRN tab 12/13/18 Surgical History: Surgical History (Last Updated 05/03/18 @ 09:04 by Corrie Ho) History of appendectomy Z90.49 History of cholecystectomy Z90.49 History of hysterectomy Z90.710 History of tubal ligation Z98.51 Surgical History: adenoidectomy, appendectomy, cholecystectomy, herniorrhaphy, hysterectomy Smoking Status: Former smoker - *Family History Maternal History Items: - - pancreatic cancer Review of Systems Constitutional: Reports: Chills, Fever HEENT: Denies: Head Aches, Sinus Congestion, Sinus Drainage Cardiovascular: Denies: Chest Pain, Palpitations Respiratory: Reports: Cough, Shortness of Breath, Shortness of breath upon exertion, Sputum production, Wheezing. Denies: Hemoptysis, Pleuritic Pain, Shortness of breath at rest Gastrointestinal: Reports: Abdominal Pain, Diarrhea, Nausea. Denies: Vomiting Genitourinary: Denies: Dysuria, Frequency, Hesitancy, Incontinence, Retention, Urgency Musculoskeletal: Denies: Joint Pain, Joint Tenderness Skin: Denies: Rash, Wounds Neurological: Denies: Numbness, Tingling, Focal weakness Psychiatric: Denies: Anxiety, Depression, Homicidal Ideations, Suicidal Ideations Hematologic/ Lymphatic: Denies: Easy Bruising, Easy Bleeding VTE Information - Inpt Only VTE Present on Admission: No VTE Mechan Device Prophylaxis: SCD's, None VTE Pharm Prophylaxis ordered?: No - Physical Exam General: Alert, Oriented x3, Cooperative, - - Patient is all the time crying and sobbing. HEENT: Atraumatic, PERRLA, EOMI, Normocephalic Oral: Dry Mucosa Neck: Supple, No JVD, Negative Carotid Bruits Lungs: Clear to auscultation, Diminished - Air entry is diminished predominantly in the right lung base., Rhonchi, Short of Breath Cardiovascular: Regular rate, Regular Rhythm, Normal S1, Normal S2, No murmurs Abdomen: Bowel Sounds Present, Soft, Non-Distended, Tender - Tenderness present on the right upper and lower quadrants. Extremities: No edema, Capillary Refill Less than 3 Seconds Skin: No rashes, No breakdown Musculoskeletal: No Tenderness to Palpation of Joints or Extremities, Arthritic Changes Neurological: Cranial nerves II-XII grossly intact, Deep Tendon Reflexes 2+/4 and Symmetrical, Neuro grossly intact Psych/Mental Status: Normal Affect, Appropriate Vital Signs Temp Pulse Resp BP Pulse Ox 98.4 F 87 20 H 145/77 H 98 12/22/18 18:15 12/22/18 18:15 12/22/18 18:15 12/22/18 18:15 12/22/18 18:15 Oxygen Flow Rate (L/min) 2 Oxygen Delivery Method Nasal Cannula Weight: 278 lb 14.156 oz Body Mass Index (BMI) 42.4 Laboratory Tests Past 24 Hrs 12/22/18 12/22/18 12/22/18 14:30 14:30 14:30 WBC 2.6 L RBC 4.03 L Hgb 12.0 Hct 39.4 MCV 97.8 MCH 29.8 MCHC 30.5 L RDW Std Deviation 55.8 H RDW Coeff of Jaun 15.4 H Plt Count 178 MPV 9.4 Immature Gran % (Auto) 0.400 Neut % (Auto) 58.0 Lymph % (Auto) 31.5 [place] % (Auto) 9.3 Eos % (Auto) 0.4 Baso % (Auto) 0.4 Absolute Neuts (auto) 1.5 L Absolute Lymphs (auto) 0.81 L Absolute Nucleated RBC 0.00 Nucleated RBC % 0 Sodium 137 Potassium 3.7 Chloride 106 Carbon Dioxide 27.0 Anion Gap 4 L BUN 14 Creatinine 0.93 Estim Creat Clear Calc 67.33 Est GFR (MDRD) Af Amer 80 Est GFR (MDRD) Non-Af 66 BUN/Creatinine Ratio 15.1 Glucose 88 Lactic Acid 1.1 Calcium 9.1 Total Bilirubin 1.00 AST 29 ALT 22 Alkaline Phosphatase 69 Troponin I < 0.015 Total Protein 6.7 Albumin 3.8 Globulin 2.9 Albumin/Globulin Ratio 1.3 Assessment/Plan All Active Problems (Last Updated 12/09/18 @ 13:23 by Blayne Santana DO) Respiratory failure with hypoxia (Acute) Respiratory insufficiency (Acute) Sepsis (Acute) The patient is a 58 year old F with history of recent diagnosis of ulcerative colitis, discharged on 12/13/2018 after management of sepsis secondary to colitis on Cipro and Flagyl with GI bleed came to ER with abdominal pain and shortness of breath since discharge. As per patient,, abdominal pain has not gotten better and varies 6-7 to 10/10 intensity intermittently. As per patient, Dr. Hernandez told her she has ulcerative colitis. She denies any active bright red or melena but has sometimes darker stool. Last time, she was discharged on 2 L of oxygen and at that time chest x-ray was unremarkable. Over the period of last 2 weeks shortness of breath has gotten worse and came to ED. She also complained of brownish thick phlegm productive cough and feels like chest congestion and not able to bring up sputum. Also complaining of intermittent chills with fever. In ED, she was found mild tachypnea respiratory 20/min, no fever and blood pressure are stable lactic acid 1.1. [] The patient had CTA chest which shows right lower lobe pneumonia but no obvious pulmonary emboli. Before that, she had CT abdomen pelvis which shows no bowel obstruction or inflammatory changes and No acute diverticulitis. 1. Right lower lobe community-acquired pneumonia with chronic hypoxic respiratory failure on 2 L of oxygen: Patient is being admitted in PCU. Started on IV Rocephin and Zithromax. Patient had 1 dose of Levaquin in ED along with vancomycin. Pneumonia work-up ordered including sputum culture, urinary antigens, respiratory panel and MRSA nasal screen. If MRSA nasal screen is positive, will continue vancomycin. 2. Possible COPD: Patient has history of his smoking started in teenage, less than 1 pack until quit in 2005. Need outpatient PFT. 3. Abdominal pain mostly secondary to ulcerative colitis with concern of GI bleed: Stool for occult blood, lactoferrin and intravitreally panel ordered. Dr. Hernandez actually send the patient to ED and he agrees to see patient while being admitted. CT abdomen does not show any bowel inflammation as mentioned above but patient complained of abdominal pain. 4. Other comorbidities include hypertension and GERD: Home medication reconciliation done. DVT prophylaxis: Bilateral SCDs. [place] prophylaxis containing view of GI bleed. Laboratory Results 12/22/18 14:30: WBC 2.6 L, RBC 4.03 L, Hgb 12.0, Hct 39.4, MCV 97.8, MCH 29.8, MCHC 30.5 L, RDW Std Deviation 55.8 H, RDW Coeff of Jaun 15.4 H, Plt Count 178, MPV 9.4, Immature Gran % (Auto) 0.400, Neut % (Auto) 58.0, Lymph % (Auto) 31.5, [place] % (Auto) 9.3, Eos % (Auto) 0.4, Baso % (Auto) 0.4, Absolute Neuts (auto) 1.5 L, Absolute Lymphs (auto) 0.81 L, Absolute Nucleated RBC 0.00, Nucleated RBC % 0 12/22/18 14:30: Sodium 137, Potassium 3.7, Chloride 106, Carbon Dioxide 27.0, Anion Gap 4 L, BUN 14, Creatinine 0.93, Estim Creat Clear Calc 67.33, Est GFR (MDRD) Af Amer 80, Est GFR (MDRD) Non-Af 66, BUN/Creatinine Ratio 15.1, Glucose 88, Calcium 9.1, Total Bilirubin 1.00, AST 29, ALT 22, Alkaline Phosphatase 69, Troponin I < 0.015, Total Protein 6.7, Albumin 3.8, Globulin 2.9, Albumin/Globulin Ratio 1.3 12/22/18 14:30: Lactic Acid 1.1 Clinical Impression(s) from Imaging Studies Abdomen/Pelvis CT 12/22/18 13:47 IMPRESSION: 1. Fibrotic atelectatic changes are favored over pneumonia in the right lower lobe. 2. A 1.3 cm lesion in the left lobe of the liver, not adequately characterized. If there is known primary malignancy or elevated LFTs, consider multiphase, contrast enhanced MRI for further evaluation. 3. Mild splenic enlargement. 4. Right renal cyst. Additional chronic changes detailed above. Chest CTA 12/22/18 13:48 IMPRESSION: 1. Right lower lobe pneumonia. 2. No obvious pulmonary emboli. Evaluation is limited due to suboptimal pulmonary arterial opacification. Code Visit Inpatient E&M: 05209 Init Hosp L3
[2018-12-22] MEDS: Morphine 2 MG/ML Syringe IV (19:27)
[2018-12-22] MEDS: 0.9% NaCl Peripheral Flush Adult/Peds IV (19:27)
[2018-12-22] MEDS: proCHLORPERazine 10 MG/2 ML Vial 5 MG IV (19:28)
[2018-12-22 20:15] LABS: Color, Urine Yellow (Yellow); Glucose, Dipstick Normal (Normal); Ketone-Dipstick Negative (Negative); Leukocyte Esterase-Dipstick 25 /ul (Negative); Nitrite-Dipstick Negative (Negative); Occult Blood-Urine Negative /ul (Negative); Protein-Dipstick 30 mg/dl (Negative); Specific Gravity, Urine 1.005 (1.002-1.030); Urine Bilirubin Dipstick Negative (Negative); Urine Clarity Clear (Clear); Urine Urobilinogen Normal (Normal)
[2018-12-22] MEDS: Atorvastatin Calcium 80 MG Tablet PO (21:30)
[2018-12-22] MEDS: Temazepam 15 MG Capsule 30 MG PO (21:30)
[2018-12-22] MEDS: oxyCODONE 5 MG Tablet PO (21:33)
[2018-12-22] MEDS: guaiFENesin 1,200 MG Tablet 1200 MG PO (21:33)
[2018-12-22] MEDS: Ceftriaxone 1 GM/50 ML BAG IV (22:32)
[2018-12-22] MEDS: 0.9% Normal Saline 1,000 ML 100 ML IV (22:32)
[2018-12-23] VITALS (12 sets, daily range): BP systolic 100–126; BP diastolic 58–67; PULSE 77–100; RESP 18–20; TEMP 36.4–37.2; O2SAT 96–97
[2018-12-23 00:28] LABS: M R Staph aureus DNA By PCR Negative (Negative); Probe Check PASS; Specimen Processing Control PASS
[2018-12-23] MEDS: Morphine 2 MG/ML Syringe IV (03:29)
[2018-12-23] MEDS: 0.9% NaCl Peripheral Flush Adult/Peds IV (03:32)
[2018-12-23 06:01] LABS: Basophil# 0.01 X10^3/uL; Basophil% 0.5 % (0-1); Eosinophil# 0.03 X10^3/uL; Eosinophils% 1.4 % (0-5); Hematocrit 35.2 % (37-47); Hemoglobin 10.9 g/dL (12.0-15.0); Lymphocyte # 0.46 X10^3/ul (4.0); Lymphocyte % 20.7 % (19-41); Mean Corpuscular Hgb 30.4 pg (27.0-32.0); Mean Corpuscular Volume 98.3 fL (81-99); Mean Platelet Vol. 9.4 fl (6.2-12.0); Monocyte# 0.26 X10^3/uL; Monocyte% 11.7 % (0-10); NRBC Flagged by Analyzer 0 % (0-5); Neutrophil # 1.45 X10^3/uL (2.7-7.7); Neutrophil % 65.2 % (47-70); POSITIVE DIFFERENTIAL YES; Platelet Count 169 K/mm3 (150-450); RBC Distribution Width CV 16.1 % (11.6-14.6); RBC Distribution Width SD 59.5 fl (35.1-43.9); Red Blood Count 3.58 M/mm3 (4.2-5.4); White Blood Count 2.2 K/mm3 (4.4-11.0)
[2018-12-23 06:22] LABS: Anion Gap 7 (5-15); BUN 9 mg/dL (7-18); BUN/Creat Ratio 10.8 RATIO (10-20); Calcium,Total 8.6 mg/dL (8.5-10.1); Chloride 106 mmol/L (98-107); Creatinine, Serum 0.83 mg/dL (0.55-1.02); EST Glomerular Filtration Rate 75 mL/min (>60); Est Glom Filt Rate - Afr Amer 91 mL/min (>60); Estimated Creatinine Clearance 75.44 ml/min; Glucose 97 mg/dL (74-106); Potassium 3.9 mmol/L (3.5-5.1); Sodium Level 142 mmol/L (136-145)
[2018-12-23] MEDS: FLUCONAZOLE 150 MG TABLET PO (06:36)
[2018-12-23] MEDS: oxyCODONE 5 MG Tablet PO ×2 (06:36→20:57)
[2018-12-23] MEDS: proCHLORPERazine 10 MG/2 ML Vial 5 MG IV ×2 (06:36→14:20)
[2018-12-23] MEDS: Ipratropium/Albuterol Sulfate 3 ML AMPUL.NEB INHALATION ×3 (07:27→19:50)
[2018-12-23] MEDS: guaiFENesin 1,200 MG Tablet 1200 MG PO ×2 (08:50→20:57)
[2018-12-23] MEDS: Pantoprazole Sodium 40 MG Tablet PO (08:57)
--- NOTE | 2018-12-23 09:10 | PCM.PROGNOTE ---
Subjective: Chief complaint: Follow-up after admission for right lower lobe pneumonia and abdominal pain. Patient seen and examined. No acute events overnight. She is still complaining of cough with clear to yellow sputum, mild shortness of breath. Also, she is still complaining of right lower quadrant abdominal pain, 5 constant severity, aggravated by coughing, constant, dull aching pain. She denies associated nausea vomiting. She denies constipation or diarrhea. She denies fever or chills. She has been afebrile, blood pressure and heart rate are stable, pulse ox is 96% on 2 L. - Physical Exam General: Alert, Oriented x3, Cooperative, No apparent distress HEENT: Atraumatic, PERRLA, EOMI, Normocephalic Oral: Moist Mucosa, No Gingival or Mucosal Lesions/ Ulcerations Neck: Supple, No JVD, Negative Carotid Bruits, Trachea Midline, Thyroid Normal Size and Texture Lungs: No rales, Diminished, Rhonchi, Wheezes, - - Decubitus sounds bilateral, bilateral expiratory wheezes, rhonchi. Cardiovascular: Regular rate, Regular Rhythm, Normal S1, Normal S2, PMI Normal Abdomen: Bowel Sounds Present, Soft, Non-Distended, No Hepato-splenomegaly, Obese, Tender - Right lower quadrant tenderness, no guarding or rigidity. No rebound tenderness. Extremities: No clubbing, No cyanosis, No edema Skin: No rashes, No breakdown Lymphatic: No Cervical, Supraclavicular, or Inguinal Adenopathy Neurological: Cranial nerves II-XII grossly intact, Motor Exam 5/5 strength throughout Psych/Mental Status: Normal Affect, Appropriate, Alert and oriented to time, place, person, mood and affect Vital Signs Temp Pulse Resp BP Pulse Ox 98.4 F 77 18 126/58 H 96 12/23/18 08:48 12/23/18 08:48 12/23/18 08:48 12/23/18 08:48 12/23/18 08:48 Oxygen Flow Rate (L/min) 2 Oxygen Delivery Method Nasal Cannula Weight: 280 lb 13.903 oz Body Mass Index (BMI) 42.7 Intake and Output for Last 24 Hours 12/21/18 12/22/18 12/23/18 23:59 23:59 23:59 Intake Total 1710 / 1710 Balance 1710 / 1710 Microbiology Past 72 Hours 12/22/18 19:54 Legionella Antigen - Final Urine, Clean Catch 12/22/18 19:54 Streptococcus pneumoniae Antigen (M - Final Urine, Clean Catch Laboratory Tests Past 24 Hrs 12/22/18 12/22/18 12/22/18 14:30 14:30 14:30 WBC 2.6 L RBC 4.03 L Hgb 12.0 Hct 39.4 MCV 97.8 MCH 29.8 MCHC 30.5 L RDW Std Deviation 55.8 H RDW Coeff of Jaun 15.4 H Plt Count 178 MPV 9.4 Immature Gran % (Auto) 0.400 Neut % (Auto) 58.0 Lymph % (Auto) 31.5 [place] % (Auto) 9.3 Eos % (Auto) 0.4 Baso % (Auto) 0.4 Absolute Neuts (auto) 1.5 L Absolute Lymphs (auto) 0.81 L Absolute Nucleated RBC 0.00 Nucleated RBC % [address] Review Sodium 137 Potassium 3.7 Chloride 106 Carbon Dioxide 27.0 Anion Gap 4 L BUN 14 Creatinine 0.93 Estim Creat Clear Calc 67.33 Est GFR (MDRD) Af Amer 80 Est GFR (MDRD) Non-Af 66 BUN/Creatinine Ratio 15.1 Glucose 88 Lactic Acid 1.1 Calcium 9.1 Total Bilirubin 1.00 AST 29 ALT 22 Alkaline Phosphatase 69 Troponin I < 0.015 Total Protein 6.7 Albumin 3.8 Globulin 2.9 Albumin/Globulin Ratio 1.3 Urine Color Urine Clarity Urine pH Ur Specific [place] Urine Protein Urine Glucose (UA) Urine Ketones Urine Occult Blood Urine Nitrite Urine Bilirubin Urine Urobilinogen Ur Leukocyte Esterase MRSA (PCR) 12/22/18 12/22/18 12/23/18 19:54 22:12 05:45 WBC 2.2 L RBC 3.58 L Hgb 10.9 L Hct 35.2 L MCV 98.3 MCH 30.4 MCHC 31.0 L RDW Std Deviation 59.5 H RDW Coeff of Jaun 16.1 H Plt Count 169 MPV 9.4 Immature Gran % (Auto) 0.500 Neut % (Auto) 65.2 Lymph % (Auto) 20.7 [place] % (Auto) 11.7 H Eos % (Auto) 1.4 Baso % (Auto) 0.5 Absolute Neuts (auto) 1.5 L Absolute Lymphs (auto) 0.46 L Absolute Nucleated RBC 0.00 Nucleated RBC % [address] Review May foll Sodium Potassium Chloride Carbon Dioxide Anion Gap BUN Creatinine Estim Creat Clear Calc Est GFR (MDRD) Af Amer Est GFR (MDRD) Non-Af BUN/Creatinine Ratio Glucose Lactic Acid Calcium Total Bilirubin AST ALT Alkaline Phosphatase Troponin I Total Protein Albumin Globulin Albumin/Globulin Ratio Urine Color Yellow Urine Clarity Clear Urine pH 7.0 Ur Specific [place] 1.005 Urine Protein 30 H Urine Glucose (UA) Normal Urine Ketones Negative Urine Occult Blood Negative Urine Nitrite Negative Urine Bilirubin Negative Urine Urobilinogen Normal Ur Leukocyte Esterase 25 H MRSA (PCR) Negative 12/23/18 05:45 WBC RBC Hgb Hct MCV MCH MCHC RDW Std Deviation RDW Coeff of Jaun Plt Count MPV Immature Gran % (Auto) Neut % (Auto) Lymph % (Auto) [place] % (Auto) Eos % (Auto) Baso % (Auto) Absolute Neuts (auto) Absolute Lymphs (auto) Absolute Nucleated RBC Nucleated RBC % Diff Path Review Sodium 142 Potassium 3.9 Chloride 106 Carbon Dioxide 29.0 Anion Gap 7 BUN 9 Creatinine 0.83 Estim Creat Clear Calc 75.44 Est GFR (MDRD) Af Amer 91 Est GFR (MDRD) Non-Af 75 BUN/Creatinine Ratio 10.8 Glucose 97 Lactic Acid Calcium 8.6 Total Bilirubin AST ALT Alkaline Phosphatase Troponin I Total Protein Albumin Globulin Albumin/Globulin Ratio Urine Color Urine Clarity Urine pH Ur Specific [place] Urine Protein Urine Glucose (UA) Urine Ketones Urine Occult Blood Urine Nitrite Urine Bilirubin Urine Urobilinogen Ur Leukocyte Esterase MRSA (PCR) Clinical Impression(s) from Imaging Studies Abdomen/Pelvis CT 12/22/18 13:47 IMPRESSION: 1. Fibrotic atelectatic changes are favored over pneumonia in the right lower lobe. 2. A 1.3 cm lesion in the left lobe of the liver, not adequately characterized. If there is known primary malignancy or elevated LFTs, consider multiphase, contrast enhanced MRI for further evaluation. 3. Mild splenic enlargement. 4. Right renal cyst. Additional chronic changes detailed above. Electronically Signed: Nisa Flores MD at 16:45 EDT Tel , Service support , ADDENDUM: 12/22/18 1702 Chest CTA 12/22/18 13:48 IMPRESSION: 1. Right lower lobe pneumonia. 2. No obvious pulmonary emboli. Evaluation is limited due to suboptimal pulmonary arterial opacification. Electronically Signed: Nisa Flores MD at 16:57 EDT Tel , Service support , Medical Necessity - Tobacco Use Smoking Status: Former smoker Assessment/Plan All Active Problems (Last Updated 12/09/18 @ 13:23 by Blayne Santana DO) Respiratory failure with hypoxia (Acute) Respiratory insufficiency (Acute) Sepsis (Acute) This is a 58 years old female patient presented to the emergency room with shortness of breath and productive cough as well as abdominal pain and she was found to have a right lower lobe healthcare associated pneumonia and her abdominal pain probably due to recent history of ascending colitis. #1 right lower lobe healthcare associated pneumonia: It is healthcare associated pneumonia because patient was admitted for 4 days 2 weeks ago. She is on IV Rocephin and Zithromax. She has been afebrile, pulse ox is 96% on 2 L. Pneumococcal and Legionella antigen were negative. Respiratory panel for viruses pending. Sputum culture is pending. Plan: DC IV Rocephin and Zithromax, start IV Azactam and vancomycin. #2 abdominal pain/recent history of ascending colitis: CT scan abdomen and pelvis with IV contrast reviewed, revealed no asymmetric changes. Previous CT scan abdomen reviewed with Dr. Valente. Colonic biopsy that was done around 2 weeks ago revealed fragments of ischemic mucosa. Patient still symptomatic with right lower quadrant abdominal pain. She has been afebrile. LFT and lactic acid was normal. Dr. Valente consulted. Plan to change pain medication to IV Dilaudid, DC IV morphine. #3 leukopenia/neutropenia: Unclear etiology. She is not on any medication that can cause leukopenia or neutropenia. Patient mentioned that she has a dog that he was having some kind of infection. Along with the colitis, leukopenia and neutropenia, viral etiology should be considered. Plan: Infectious disease consult. #4 left liver lobe lesion: This is an incidental finding on CT scan abdomen. This was not reported on the previous CT scan abdomen 2 weeks ago. LFT is normal. Plan: Ultrasound liver. #5 hyperlipidemia: Continue statins. #6 suspected COPD: Patient is previous smoker. She is on bronchodilators. Pulse ox is maintained on 2 L. #7 DVT prophylaxis: Low risk patient, no prophylaxis indicated. This note was generated with [employer] dictation software. It may contain incorrect words, spelling, and punctuation that were not noted in checking the note before signing. Code Visit Inpatient E&M: 28626 Subs Hosp L2
--- NOTE | 2018-12-23 09:41 | US_ITS ---
STUDY: ABDOMINAL ULTRASOUND - RIGHT UPPER QUADRANT REASON FOR VISIT: Female, 58 years old. Follow-up ultrasound , mass seen on CT. TECHNIQUE: Ultrasound evaluation of the right upper quadrant was performed with real-time and static torres-scale imaging. TECHNICAL QUALITY: Adequate. COMPARISON: CT scan abdomen and pelvis December 22, 2018, December 09, 2018 CT scan abdomen and pelvis FINDINGS: Liver: The liver measures 17.9 cm. There is normal echogenicity of the liver. The bile ducts are within normal limits. There is hepatic color flow. The direction of portal flow is hepatopetal. Within the left hepatic lobe there is a 1.4 x 1.6 cm hyperechoic mass which corresponds to the hypoechoic mass which was seen on the prior study. This most likely represents a hemangioma. Gallbladder: Gallbladder has been surgically removed. Common Bile Duct (C.B.D.): The common bile duct measures 3.9 mm. Pancreas: Normal size of the head, body and tail of the pancreas. There is normal echogenicity of the pancreas. There is no demonstrated pancreatic mass or cyst. Right Kidney: Normal size of the right kidney. The right kidney measures 12.1 x 6.0 x 5.0 cm. Normal renal cortex. The right cortex measures 1.6 cm. Exophytic right renal cyst that is seen on the prior study is barely visualized on this study. On the transverse image only there is a 7.9 mm low attenuating structure. There is no right hydronephrosis. US/Liver IMPRESSION: Left hepatic lobe hemangioma concordant with findings seen on prior study. Limited visualization of the right kidney. The cysts seen on the prior study are not well visualized on this ultrasound. Status post cholecystectomy. Electronically Signed: Lanie Story MD at 19:08 EDT Tel , Service support ,
--- NOTE | 2018-12-23 10:01 | PCM.RX.CS ---
Consult Pharmacy has been consulted to manage selected antiobiotic: Vancomycin Type of Consult: New start Suspected Infection: Pneumonia Prior Doses of Antibiotics Received/Current Regimen: NO PRIOR VANCOMYCIN ADMINISTERED Labs: Sodium 142 mmol/L (136-145) 12/23/18 05:45 Potassium 3.9 mmol/L (3.5-5.1) 12/23/18 05:45 Chloride 106 mmol/L (98-107) 12/23/18 05:45 Carbon Dioxide 29.0 mmol/L (21.0-32.0) 12/23/18 05:45 7 (5-15) 12/23/18 05:45 BUN 9 mg/dL (7-18) 12/23/18 05:45 0.83 mg/dL (0.55-1.02) 12/23/18 05:45 Est GFR (MDRD) Af Amer 91 mL/min (>60) 12/23/18 05:45 Est GFR (MDRD) Non-Af 75 mL/min (>60) 12/23/18 05:45 10.8 RATIO (10-20) 12/23/18 05:45 Glucose 97 mg/dL (74-106) 12/23/18 05:45 Microbiology: Microbiology 12/22/18 19:54 Urine, Clean Catch Legionella Antigen - Final 12/22/18 19:54 Urine, Clean Catch Streptococcus pneumoniae Antigen (M - Final Weight used for dosin.4 kg Estimated Creatinine Clearance: 75 ML/MIN Goal Trough: 15-20 mcg/mL Pharmacy Plan for Drug Dosing: PLAN/RECOMMENDATIONS 1. Vancomycin initial dose 2000mg IV x1 scheduled for 12/23 @1030 2. Scheduled vancomycin dosing 1750mg IV Q12hrs to start 12 hours from initial dose 12/23 @2230 3. Trough prior to 4th total vancomycin dose per protocol 12/24/18 @2200 4. Pharmacy Service will continue to monitor and adjust dosing as required.
--- NOTE | 2018-12-23 10:09 | CASEMGMT ---
Patient has a Healthcare POA and Healthcare LW on file at [facility]. Jina ROGEL [employer]
[2018-12-23] MEDS: HYDROmorphone 1 MG/ML Syringe IV ×3 (10:16→18:40)
[2018-12-23] MEDS: 0.9% Normal Saline 1,000 ML 75 ML IV (10:16)
--- NOTE | 2018-12-23 10:21 | CON.PCM_ITS ---
Reason for Consult Date of Consultation: 12/23/18 Reason for Consultation: worsening shortness of breath, continued right lateral abdominal pain History of Present Illness: The patient is a 58 year old F with a complaint of episodic abdominal pain, now right lower quadrant abdominal pain and shortness of breath. ?She is noted relatively mild pain around the abdomen for some time. ?For the past 3 days, she noted increasing abdominal pain which she describes as diffuse around the outside of her abdomen but nonetheless are located in the center aspect of her abdomen. ?Due to these complaints she presented emergency department and was noted to be mildly hypoxic. ?She received IV fluids. ?A CT scan of the pelvis obtained which demonstrated colitis or thickening in the descending colon. ?The patient was given ciprofloxacin and Flagyl. ?She denies a previous history of colitis. ?Stool was checked and noted to be heme positive. ?I was contacted for endoscopy. ? The patient was referred for endoscopy in April. ?She saw Dr. Maldonado on April 05, 2018. ?she presented noting occasional nausea and vomiting episodically for 2 months. 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 ?She noted liquid stools usually 2 times per day. ?She also had abdominal cramping and diarrhea at socially inconvenient times. ?She was scheduled for upper and lower endoscopy that fell and had a leg fracture and had to cancel that procedure. ?She had been in usual state of intestinal health until the symptoms worsen over the last few days. ? The?patient has a history of chronic renal failure. ?She concerns about dehydr ation. ?She is a former smoker who quit in 2009.she has undergone previous appendectomy, cholecystectomy. ?Vaginal hysterectomy and bilateral oophorectomy. ?She also noted worsening shortness of breath and was found to be quite hypoxic on admission. ?She will oxygen throughout the entire hospitalization. ?She underwent a CT angiogram to rule out pulmonary embolism on December 11, 2018. ?This demonstrated focal atelectasis versus infiltrate of the right lobe without other specific abnormalities. ? I saw her in consultation at [facility] on December 09, 2018.??CT scan of the abdomen and pelvis was obtained which demonstrated ascending colon colitis.??(Initial summary on CT scan stated descending colon but body of report stated ascending colon. ?Scan was reviewed and this was in fact ascending colon colitis) ? I performed?upper and lower?endoscopy on December 10, 2018. ?The patient was found to have mild gastritis and reflux esophagitis on upper endoscopy.??Colonoscopy demonstrated diverticulosis in the sigmoid area. ?The sigmoid and descending colon and cecum were all normal. ?There was felt to be moderate inflammation found in the proximal ascending colon likely secondary to infectious colitis. ?Biopsies were obtained. ?The site was injected and a clip was placed to prove location.??KUB demonstrated the clip to be in the mid ascending colon region. ? ? ? Pathology demonstrated: ? MICROSCOPIC DIAGNOSIS A. ?Antral biopsy: ?Mild gastritis. ?See microscopic description and comment. B. ?GE junction, biopsy: ?A fragment of gastroesophageal mucosa with chronic inflammation. ?Intestinal metaplasia (goblet cell metaplasia) is not identified. ?See comment. C. ?Ileocecal biopsy: ?A fragment of colonic mucosa, no pathologic diagnosis. D. ?Ischemic mass, biopsy: Fragments of colonic mucosa with extensive necrosis, acute inflammation most likely represents fragments of ulcerated mucosa.. ?No viable mucosa is noted in the specimen. E. ?Descending colon, biopsy: ?A fragment of colonic mucosa, no pathologic diagnosis. F. ?Sigmoid colon, biopsy: ?Fragments of colonic mucosa, no pathologic diagnosis. ? SJ:rg ?12/11/18 ? COMMENT A. ?The results of immunohistochemistry for Helicobacter pylori will be reported separately ([id number]). B. ?The specimen predominantly consists of gastric mucosa. Alcian blue/PAS stain with matched control is used in the evaluation of the specimen. ? D. ?If there is high suspicion of malignancy, rebiopsy is suggested if clinically indicated. Correlation with clinical, endoscopic findings and appropriate follow up are necessary. ? The patient was discharged from the hospital by the medicine service on ciprofloxacin and Flagyl on December 13, 2018. ? The patient notes?continued complaints of shortness of breath requiring oxygen and continued right-sided abdominal pain?complaints since the procedure. ? She saw her primary care physician, Dr. Bedoya who had her walk down the shah and noticed her oxygen saturation level dropped to 81%. ?He obtained laboratory studies which still demonstrated decreased white blood cell count with specific neutropenia. ?Hemoglobin and platelet count were normal. ?Her complete metabolic panel was unremarkable. ? No stool cultures were obtained while the patient was at [facility]. ?The patient also incidentally notes that her dog has had an unusual ear infection for the past 4 months. ?She wonders if this is somehow related.??Denies blood in her stools. ?She notes that her bowel movements are coming somewhat more solid. ?Patient also notes multiple cold sores over the last few months. the patient called me Sunday and stated she was having worsening shortness of breath and still though somewhat improved right lower quadrant pain. I recommend she presented with [address] [place] [address] immersed department. A she had follow-up laboratory studies. She is again has a low white count with relative neutropenia. CT scan of the chest demonstrated no pulmonary embolisms. She was found to have a right lower lobe pneumonia. CT scan of the abdomen did not demonstrate abnormal thickening in the cecum on reading by the radiologist. I placed a marker clip where she had the most significant colitis. To my review the CT scan this area also looks less inflamed than the previous CT scan. There is report of a questionable lesion in the liver. Reviewing the old CT scan I believe this was present then also just less obvious. This is relatively smooth and makes me question whether this is a hemangioma versus benign cyst. Past Medical History Past Medical History (Chronic Problems): Chronic Problems (Last Updated 12/09/18 @ 13:23 by Blayne Santana DO) Gastroesophageal reflux disease (Chronic) Hypertension (Chronic) Colitis with rectal bleeding (Chronic) Medical History: Medical History (Last Updated 12/09/18 @ 13:23 by Blayne Santana DO) Anxiety F41.9 Arthritis M19.90 History of diarrhea Z87.898 History of umbilical hernia Z87.19 Hypertension I10 Allergies Penicillins Allergy (Verified 12/22/18 13:21) Unknown DUST Allergy (Uncoded 12/22/18 13:21) Unknown SEASONAL Allergy (Uncoded 12/22/18 13:21) Unknown Home Medications: Ambulatory Orders Medication Instructions Recorded Temazepam [Restoril] 30 mg PO QHS PRN PRN 01/17/18 Albuterol Inhaler [Ventolin Hfa] 1 - 2 puff INHALATION Q4H PRN PRN 12/09/18 Pantoprazole Sodium [Protonix] 40 mg PO DAILY 12/09/18 Rosuvastatin Calcium 40 mg PO QHS 12/09/18 Acetaminophen [Tylenol Tablet] 650 mg PO Q6H PRN PRN tab 12/13/18 Surgical History: Surgical History (Last Updated 05/03/18 @ 09:04 by Corrie Ho) History of appendectomy Z90.49 History of cholecystectomy Z90.49 History of hysterectomy Z90.710 History of tubal ligation Z98.51 Surgical History: adenoidectomy, appendectomy, cholecystectomy, herniorrhaphy, hysterectomy Smoking Status: Former smoker - *Family History Maternal History Items: - - pancreatic cancer Review of Systems Constitutional: Reports: Fever, Malaise, Fatigue HEENT: Denies: Head Aches, Sinus Congestion, Sinus Drainage Cardiovascular: Denies: Chest Pain, Palpitations Respiratory: Reports: Shortness of Breath, Shortness of breath upon exertion Gastrointestinal: Reports: Abdominal Pain, - - Hematochezia has resolved for the patient Genitourinary: Denies: Dysuria Musculoskeletal: Denies: Joint Pain, Joint Tenderness Skin: Denies: Rash, Wounds Neurological: Denies: Numbness, Tingling, Focal weakness - Physical Exam General: Alert, Oriented x3, Cooperative Neck: Supple, No JVD, Negative Carotid Bruits Lungs: Clear to auscultation, - - decreased right base Cardiovascular: Regular rate, Regular Rhythm Abdomen: Bowel Sounds Present, Soft, - - mild tenderness right lower quadrant. No peritoneal signs Vital Signs Temp Pulse Resp BP Pulse Ox 98.4 F 77 18 126/58 H 96 12/23/18 08:48 12/23/18 08:48 12/23/18 08:48 12/23/18 08:48 12/23/18 08:48 Oxygen Flow Rate (L/min) 2 Oxygen Delivery Method Nasal Cannula Weight: 127.4 kg Body Mass Index (BMI) 42.7 Intake and Output for Last 24 Hours 12/21/18 12/22/18 12/23/18 23:59 23:59 23:59 Intake Total 1710 / 1710 Balance 1710 / 1710 Microbiology Past 72 Hours 12/22/18 22:12 Respiratory Panel (PCR) - Final Mucosa - Nose 12/22/18 19:54 Legionella Antigen - Final Urine, Clean Catch 12/22/18 19:54 Streptococcus pneumoniae Antigen (M - Final Urine, Clean Catch Laboratory Tests Past 24 Hrs 12/22/18 12/22/18 12/22/18 14:30 14:30 14:30 WBC 2.6 L RBC 4.03 L Hgb 12.0 Hct 39.4 MCV 97.8 MCH 29.8 MCHC 30.5 L RDW Std Deviation 55.8 H RDW Coeff of Jaun 15.4 H Plt Count 178 MPV 9.4 Immature Gran % (Auto) 0.400 Neut % (Auto) 58.0 Lymph % (Auto) 31.5 [place] % (Auto) 9.3 Eos % (Auto) 0.4 Baso % (Auto) 0.4 Absolute Neuts (auto) 1.5 L Absolute Lymphs (auto) 0.81 L Absolute Nucleated RBC 0.00 Nucleated RBC % 0 Diff Path Review Sodium 137 Potassium 3.7 Chloride 106 Carbon Dioxide 27.0 Anion Gap 4 L BUN 14 Creatinine 0.93 Estim Creat Clear Calc 67.33 Est GFR (MDRD) Af Amer 80 Est GFR (MDRD) Non-Af 66 BUN/Creatinine Ratio 15.1 Glucose 88 Lactic Acid 1.1 Calcium 9.1 Total Bilirubin 1.00 AST 29 ALT 22 Alkaline Phosphatase 69 Troponin I < 0.015 Total Protein 6.7 Albumin 3.8 Globulin 2.9 Albumin/Globulin Ratio 1.3 Urine Color Urine Clarity Urine pH Ur Specific [place] Urine Protein Urine Glucose (UA) Urine Ketones Urine Occult Blood Urine Nitrite Urine Bilirubin Urine Urobilinogen Ur Leukocyte Esterase MRSA (PCR) 12/22/18 12/22/18 12/23/18 19:54 22:12 05:45 WBC 2.2 L RBC 3.58 L Hgb 10.9 L Hct 35.2 L MCV 98.3 MCH 30.4 MCHC 31.0 L RDW Std Deviation 59.5 H RDW Coeff of Jaun 16.1 H Plt Count 169 MPV 9.4 Immature Gran % (Auto) 0.500 Neut % (Auto) 65.2 Lymph % (Auto) 20.7 [place] % (Auto) 11.7 H Eos % (Auto) 1.4 Baso % (Auto) 0.5 Absolute Neuts (auto) 1.5 L Absolute Lymphs (auto) 0.46 L Absolute Nucleated RBC 0.00 Nucleated RBC % 0 Diff Path Review May foll Sodium Potassium Chloride Carbon Dioxide Anion Gap BUN Creatinine Estim Creat Clear Calc Est GFR (MDRD) Af Amer Est GFR (MDRD) Non-Af BUN/Creatinine Ratio Glucose Lactic Acid Calcium Total Bilirubin AST ALT Alkaline Phosphatase Troponin I Total Protein Albumin Globulin Albumin/Globulin Ratio Urine Color Yellow Urine Clarity Clear Urine pH 7.0 Ur Specific [place] 1.005 Urine Protein 30 H Urine Glucose (UA) Normal Urine Ketones Negative Urine Occult Blood Negative Urine Nitrite Negative Urine Bilirubin Negative Urine Urobilinogen Normal Ur Leukocyte Esterase 25 H MRSA (PCR) Negative 12/23/18 05:45 WBC RBC Hgb Hct MCV MCH MCHC RDW Std Deviation RDW Coeff of Jaun Plt Count MPV Immature Gran % (Auto) Neut % (Auto) Lymph % (Auto) [place] % (Auto) Eos % (Auto) Baso % (Auto) Absolute Neuts (auto) Absolute Lymphs (auto) Absolute Nucleated RBC Nucleated RBC % Diff Path Review Sodium 142 Potassium 3.9 Chloride 106 Carbon Dioxide 29.0 Anion Gap 7 BUN 9 Creatinine 0.83 Estim Creat Clear Calc 75.44 Est GFR (MDRD) Af Amer 91 Est GFR (MDRD) Non-Af 75 BUN/Creatinine Ratio 10.8 Glucose 97 Lactic Acid Calcium 8.6 Total Bilirubin AST ALT Alkaline Phosphatase Troponin I Total Protein Albumin Globulin Albumin/Globulin Ratio Urine Color Urine Clarity Urine pH Ur Specific [place] Urine Protein Urine Glucose (UA) Urine Ketones Urine Occult Blood Urine Nitrite Urine Bilirubin Urine Urobilinogen Ur Leukocyte Esterase MRSA (PCR) Assessment/Plan All Active Problems (Last Updated 12/09/18 @ 13:23 by Blayne Santana DO) Respiratory failure with hypoxia (Acute) Respiratory insufficiency (Acute) Sepsis (Acute) right lower quadrant pain, segmental colitis clinically improving, shortness of breath, questionable right lower lobe pneumonia, leukopenia, ??I had planned to order stool cultures which the patient was an outpatient. ?I have ordered fecal WBCs, fecal occult blood, enteric pathogens, ova and parasites and C. difficile. repeat CT scan of the chest abdomen and pelvis given her worsening/persistent shortness of breath without obvious underlying etiology beyond the pneumonia. medicine service planning to start Zosyn and vancomycin. We'll attempt to obtain sputum cultures and if possible. Repeat abdominal scan demonstrates some degree of improvement without reading suggesting colitis. For now we'll continue to monitor the patient.if her symptoms fail to improve, may plan repeat colonoscopy this admission. ? I discussed with the patient the fact that her cecum was uninvolved and this seemed relatively localized in the cecal/ascending colon region that this did not make good sense. the patient noted her dog had an unusual ear infection area did she notes recent viral/herpes type mouth sores and has been persistently leukopenic. I spoke with Dr. Rivera, will consider getting an infectious disease consult given this unusual picture.
--- NOTE | 2018-12-23 11:15 | CASEMGMT ---
Readmission chart review: Pt initially admitted 12/09-12/13/18 for GI bleed/resp insuff/sepsis and dx'd with colitis. See assessment completed by Judith MONTES CM on 12/09/18. Pt readmitted 12/22/18 for HCAP and abd pain. Per Dr. Hernandez's note, pt's 'repeat abd scan demonstrates some degree of improvement without reading suggesting colitis.' This RN CM did verify all previous assessment info at this time and CM to follow for increased home oxygen need and for any further discharge planning/needs. Advised pt to ask for CM if any further questions/concerns/needs arise, voices understanding. Pt voices no further questions/concerns/needs at this time. SStjaye MONTES CM
[2018-12-23 12:12] LABS: Pathologist Review Reviewed
[2018-12-23] MEDS: Atorvastatin Calcium 80 MG Tablet PO (20:57)
[2018-12-23] MEDS: Temazepam 15 MG Capsule 30 MG PO (20:57)
[2018-12-24] VITALS (11 sets, daily range): BP systolic 101–111; BP diastolic 61–65; PULSE 67–102; RESP 16–19; TEMP 36.8–36.9; O2SAT 94–98
[2018-12-24] MEDS: 0.9% NaCl Peripheral Flush Adult/Peds IV ×2 (01:49→06:22)
[2018-12-24] MEDS: HYDROmorphone 1 MG/ML Syringe IV ×4 (01:49→16:45)
[2018-12-24] MEDS: Ipratropium/Albuterol Sulfate 3 ML AMPUL.NEB INHALATION ×4 (01:57→19:19)
--- NOTE | 2018-12-24 08:07 | PN_ITS ---
Subjective: Chief complaint: Follow-up after admission for right lower lobe healthcare associated pneumonia and abdominal pain. Patient seen and examined. No acute events overnight. She is still complaining of right lower quadrant abdominal pain, no change. Denied fever or chills. Still complaining of cough but improved, shortness of breath is improving. She has been afebrile, other vitals are stable. - Physical Exam General: Alert, Oriented x3, Cooperative, No apparent distress HEENT: Atraumatic, PERRLA, EOMI, Normocephalic Oral: Moist Mucosa, No Gingival or Mucosal Lesions/ Ulcerations Neck: Supple, No JVD, Negative Carotid Bruits, Trachea Midline, Thyroid Normal Size and Texture Lungs: Diminished, Rhonchi, Wheezes, - - Decreased breath sounds bilateral, more at the bases, bilateral wheezes. Cardiovascular: Regular rate, Regular Rhythm, Normal S1, Normal S2, PMI Normal Abdomen: Bowel Sounds Present, Soft, Non-Distended, No Hepato-splenomegaly, Tender - Minimal right lower quadrant tenderness, no guarding or rigidity. No rebound tenderness. Extremities: No clubbing, No cyanosis, No edema Skin: No rashes, No breakdown Lymphatic: No Cervical, Supraclavicular, or Inguinal Adenopathy Neurological: Cranial nerves II-XII grossly intact, Neuro grossly intact Psych/Mental Status: Normal Affect, Appropriate, Alert and oriented to time, place, person, mood and affect Vital Signs Temp Pulse Resp BP Pulse Ox 98.2 F 93 16 110/65 97 12/24/18 02:50 12/24/18 07:19 12/24/18 07:19 12/24/18 02:50 12/24/18 07:19 Oxygen Flow Rate (L/min) 3 Oxygen Delivery Method Nasal Cannula Weight: 280 lb 13.903 oz Body Mass Index (BMI) 42.7 Intake and Output for Last 24 Hours 12/22/18 12/23/18 12/24/18 23:59 23:59 23:59 Intake Total 2334 / 4184 2242 / 2242 Balance 2334 / 4184 2242 / 2242 Microbiology Past 72 Hours 12/23/18 14:27 Stool Lactoferrin - Final Stool Stool Occult Blood (MADELEINE) - Final Occult Blood Positive 12/23/18 06:19 Gram Stain - Final Sputum, Expectorated/Coughed 12/22/18 22:12 Respiratory Panel (PCR) - Final Mucosa - Nose 12/22/18 19:54 Legionella Antigen - Final Urine, Clean Catch 12/22/18 19:54 Streptococcus pneumoniae Antigen (M - Final Urine, Clean Catch Laboratory Tests Past 24 Hrs 12/23/18 05:45 Diff Path Review Reviewed Clinical Impression(s) from Imaging Studies Liver Ultrasound 12/23/18 09:41 IMPRESSION: Left hepatic lobe hemangioma concordant with findings seen on prior study. Limited visualization of the right kidney. The cysts seen on the prior study are not well visualized on this ultrasound. Status post cholecystectomy. Electronically Signed: Lanie Story MD at 19:08 EDT Tel , Service support , Medical Necessity - Tobacco Use Smoking Status: Former smoker Assessment/Plan All Active Problems (Last Updated 12/09/18 @ 13:23 by Blayne Santana DO) Respiratory failure with hypoxia (Acute) Respiratory insufficiency (Acute) Sepsis (Acute) This is a 58 years old female patient presented to the emergency room with shortness of breath and productive cough as well as abdominal pain and she was found to have a right lower lobe healthcare associated pneumonia and her abdominal pain probably due to recent history of ascending colitis. #1 right lower lobe healthcare associated pneumonia: She is on IV vancomycin and Zosyn. She has been afebrile, she is leukopenic and neutropenic. pneumococcal and Legionella antigen were negative. Respiratory panel for viruses was negative. Sputum culture is pending. Plan to continue same treatment. #2 abdominal pain/recent history of ascending colitis: She is on IV Dilaudid for pain, IV fluids and antiemetics. On full liquid diet. CT scan abdomen and pelvis with IV contrast reviewed, revealed no asymmetric changes. Previous CT scan abdomen reviewed with Dr. Valente. Colonic biopsy that was done around 2 weeks ago revealed fragments of ischemic mucosa. Patient reported no improvement of her abdominal pain. LFT and lactic acid was normal. Appreciate general surgery input. Patient reported that her dog had unusual ear infection. We are awaiting infectious disease recommendations. #3 leukopenia/neutropenia: Unclear etiology. She is not on any medication that can cause leukopenia or neutropenia. Patient mentioned that she has a dog that he was having some kind of unusual ear infection. Along with the colitis, leukopenia and neutropenia, viral etiology should be considered. Awaiting infectious disease recommendation. #4 left liver lobe lesion: This is an incidental finding on CT scan abdomen. Ultrasound liver done and revealed hemangioma. #5 hyperlipidemia: Continue statins. #6 suspected COPD: Patient is previous smoker. She is on bronchodilators. Pulse ox is maintained on 2 L. #7 DVT prophylaxis: Low risk patient, no prophylaxis indicated. This note was generated with [employer] dictation software. It may contain incorrect words, spelling, and punctuation that were not noted in checking the note before signing. Code Visit Inpatient E&M: 99329 Subs Hosp L2
[2018-12-24] MEDS: oxyCODONE 5 MG Tablet PO ×2 (08:37→21:11)
[2018-12-24] MEDS: 0.9% Normal Saline 1,000 ML 75 ML IV ×2 (08:53→21:11)
--- NOTE | 2018-12-24 10:23 | PCM.HP.ID ---
Problem List (1) Sepsis Status: Acute Reason for Consult: pneumonia Consulted by: Dr. Rivera History of Present Illness: The patient is a 58 year old F admitted earlier this month for ascending colitis, treated with cipro/flagyl, biopsy done. Came back to hospital 12/22 with several days of cough, rose/thick sputum, SOB, fever, chills. Still had some RLQ abd pain and nausea as well. Started on vanc/cefepime. Wbc trending down slowly over past month. Sputum is clearing up, abd pain slightly improved, no fever here, feeling better. Full ROS performed and neg except as noted above. - Medical History Past Medical History (Chronic Problems): Chronic Problems (Last Updated 12/09/18 @ 13:23 by Blayne Santana DO) Gastroesophageal reflux disease (Chronic) Hypertension (Chronic) Colitis with rectal bleeding (Chronic) Allergies/Adverse Reactions: Allergies Penicillins Allergy (Verified 12/22/18 13:21) Unknown DUST Allergy (Uncoded 12/22/18 13:21) Unknown SEASONAL Allergy (Uncoded 12/22/18 13:21) Unknown Home Medications: Ambulatory Orders Medication Instructions Recorded Temazepam [Restoril] 30 mg PO QHS PRN PRN 01/17/18 Albuterol Inhaler [Ventolin Hfa] 1 - 2 puff INHALATION Q4H PRN PRN 12/09/18 Pantoprazole Sodium [Protonix] 40 mg PO DAILY 12/09/18 Rosuvastatin Calcium 40 mg PO QHS 12/09/18 Acetaminophen [Tylenol Tablet] 650 mg PO Q6H PRN PRN tab 12/13/18 - Social History SMOKING STATUS:: Former smoker Vital Signs Temp Pulse Resp BP Pulse Ox 98.3 F 90 16 109/62 94 12/24/18 08:29 12/24/18 08:29 12/24/18 08:29 12/24/18 08:29 12/24/18 08:29 Oxygen Flow Rate (L/min) 2 Oxygen Delivery Method Nasal Cannula Weight: 127.4 kg Body Mass Index (BMI) 42.7 Microbiology Past 72 Hours 12/23/18 06:19 Gram Stain - Final Sputum, Expectorated/Coughed Respiratory Culture - Preliminary Appears to be normal respiratory orin. Further studies to follow. 12/23/18 14:27 Stool Lactoferrin - Final Stool Enteric Bacteriology - Final Stool Occult Blood (MADELEINE) - Final Occult Blood Positive 12/22/18 22:12 Respiratory Panel (PCR) - Final Mucosa - Nose 12/22/18 19:54 Legionella Antigen - Final Urine, Clean Catch 12/22/18 19:54 Streptococcus pneumoniae Antigen (M - Final Urine, Clean Catch Laboratory Tests Past 24 Hrs 12/23/18 05:45 Diff Path Review Reviewed - Other Studies Radiology: [] reviewed Other Studies: [] Route of nutrition/ use of supplements: [] Nutritional Intake: [] IV Site: [] [place] Catheter: [] - Physical Exam General: Alert, Oriented x3, Cooperative, No apparent distress HEENT: Atraumatic, PERRLA, EOMI Neck: Supple, No Nodes Lungs: Rhonchi - R side, Wheezes Cardiovascular: Regular rate, Regular Rhythm, No murmurs Abdomen: Soft, Non-Distended, Tender - minimal RLQ Extremities: No edema Skin: No rashes Musculoskeletal: No Tenderness to Palpation of Joints or Extremities Neurological: Cranial nerves II-XII grossly intact - Assessment/Plan Antibiotics: [] Assessment/Plan: [] CAP - improving. Sputum cx with normal orin, UAgs neg. Will narrow abx from vanc/cefepime to ceftriaxone. May benefit from short steroid course given amount of wheezing. colitis - overall improving, followed by Dr. Hernandez. leukopenia - will check basic labs including iron studies, folic acid, B12, hep panel, HIV, ebv/cmv. Would likely benefit from heme eval. ANC around 1500 and relatively stable so may not meet definition of neutropenia at this point. Will follow, thank you, d/w nursing.
[2018-12-24] MEDS: Pantoprazole Sodium 40 MG Tablet PO (10:30)
[2018-12-24] MEDS: proCHLORPERazine 10 MG/2 ML Vial 5 MG IV (10:31)
[2018-12-24] MEDS: guaiFENesin 1,200 MG Tablet 1200 MG PO ×2 (11:42→21:11)
[2018-12-24 11:56] LABS: Ferritin 79 ng/mL (8-252); Iron 60 ug/dL (50-170); Iron Binding Capacity,Total 450 ug/dL (250-450); PERCENT IRON SATURATION 13.3 % (15.0-55.0)
[2018-12-24 12:24] LABS: Absolute Lymphocyte Count 0.62 X10^3/uL (0.83-4.51); Absolute Neutrophil Count 1.3 X10^3/uL (2.0-7.7); Basophil# 0.01 X10^3/uL; Basophil% 0.5 % (0-1); Eosinophil# 0.03 X10^3/uL; Eosinophils% 1.4 % (0-5); Hematocrit 34.2 % (37-47); Hemoglobin 10.2 g/dL (12.0-15.0); Lymphocyte # 0.62 X10^3/ul (4.0); Lymphocyte % 29.5 % (19-41); Mean Corp Hgb Conc 29.8 g/dL (32-36); Mean Corpuscular Hgb 29.4 pg (27.0-32.0); Mean Corpuscular Volume 98.6 fL (81-99); Mean Platelet Vol. 9.6 fl (6.2-12.0); Monocyte# 0.17 X10^3/uL; Monocyte% 8.1 % (0-10); NRBC Flagged by Analyzer 0 % (0-5); Neutrophil # 1.27 X10^3/uL (2.7-7.7); Neutrophil % 60.5 % (47-70); Platelet Count 161 K/mm3 (150-450); RBC Distribution Width CV 16.5 % (11.6-14.6); RBC Distribution Width SD 59.5 fl (35.1-43.9); Red Blood Count 3.47 M/mm3 (4.2-5.4); White Blood Count 2.1 K/mm3 (4.4-11.0)
[2018-12-24 12:31] LABS: HIV - WCH Non-Reactive (Nonreactive); Vitamin B12 538 pg/mL (211-911)
--- NOTE | 2018-12-24 17:54 | PN.SURG_ITS ---
Subjective: still right lower quadrant pain, bowel movements becoming more formed, continued shortness of breath with some wheezing - Physical Exam General: Alert, Oriented x3, Cooperative Lungs: Clear to auscultation, Normal air movement, Wheezes - right base, diminished right base Cardiovascular: Regular rate, Regular Rhythm Abdomen: Bowel Sounds Present, Soft, Tender - right lower quadrant without peritoneal signs Vital Signs Temp Pulse Resp BP Pulse Ox 98.3 F 94 18 108/61 98 12/24/18 14:12 12/24/18 14:12 12/24/18 14:12 12/24/18 14:12 12/24/18 14:12 Oxygen Flow Rate (L/min) 2 Oxygen Delivery Method Nasal Cannula Weight: 127.4 kg Body Mass Index (BMI) 42.7 Intake and Output for Last 24 Hours 12/22/18 12/23/18 12/24/18 23:59 23:59 23:59 Intake Total 2334 / 4184 2722 / 2722 Balance 2334 / 4184 2722 / 2722 Microbiology Past 72 Hours 12/23/18 06:19 Gram Stain - Final Sputum, Expectorated/Coughed Respiratory Culture - Preliminary Appears to be normal respiratory orin. Further studies to follow. 12/23/18 14:27 Stool Lactoferrin - Final Stool Enteric Bacteriology - Final Stool Occult Blood (MADELEINE) - Final Occult Blood Positive 12/22/18 22:12 Respiratory Panel (PCR) - Final Mucosa - Nose 12/22/18 19:54 Legionella Antigen - Final Urine, Clean Catch 12/22/18 19:54 Streptococcus pneumoniae Antigen (M - Final Urine, Clean Catch Laboratory Tests Past 24 Hrs 12/24/18 12/24/18 12/24/18 10:55 10:55 10:55 WBC Corrected WBC RBC Hgb Hct MCV MCH MCHC RDW Std Deviation RDW Coeff of Jaun Plt Count MPV Immature Gran % (Auto) Neut % (Auto) Lymph % (Auto) [place] % (Auto) Eos % (Auto) Baso % (Auto) Absolute Neuts (auto) Absolute Lymphs (auto) Absolute Nucleated RBC Total Counted Neutrophils % (Manual) Band Neutrophils % Lymphocytes % (Manual) Monocytes % (Manual) Eosinophils % (Manual) Basophils % (Manual) Metamyelocytes % Myelocytes % Promyelocytes % Blast Cells % Plasma Cell % (Manual) Other Cells % Nucleated RBC % Nucleated RBCs/100 WBC Differential Comment Diff Path Review Hypersegmented Neuts Atypical Lymphocytes Reactive Lymphocytes Smudge Cells Toxic Granulation Toxic Vacuolation Dohle Bodies Rocio Rods Platelet Estimate Plt Morphology Comment RBC Morphology Polychromasia Hypochromasia Poikilocytosis Basophilic Stippling Anisocytosis Microcytosis Macrocytosis Spherocytes Sickle Cells Target Cells Tear Drop Cells Ovalocytes Stomatocytes [place] Bodies [place] Cells Bite Cells Crenated Cell Acanthocytes (Spur) Rouleaux Schistocytes Iron 60 TIBC 450 Iron Saturation 13.3 L Ferritin 79 Vitamin B12 Folate 8.90 CMV IgG Ab Pending CMV IgM Ab Pending EBV Capsid Ag IgG Ab Pending EBV Capsid Ag IgM Ab Pending EBV Early Antigen IgG Pending EBV Nuclear Ag IgG Ab Pending EBV Antibody Interp Pending Hepatitis A IgM Ab Hep Bs Antigen Hep B Core IgM Ab Hepatitis C Ab (EIA) HIV 1&2 Antibody 12/24/18 12/24/18 12/24/18 10:55 10:55 10:55 WBC Cancelled Corrected WBC Cancelled RBC Cancelled Hgb Cancelled Hct Cancelled MCV Cancelled MCH Cancelled MCHC Cancelled RDW Std Deviation Cancelled RDW Coeff of Jaun Cancelled Plt Count Cancelled MPV Cancelled Immature Gran % (Auto) Cancelled Neut % (Auto) Cancelled Lymph % (Auto) Cancelled [place] % (Auto) Cancelled Eos % (Auto) Cancelled Baso % (Auto) Cancelled Absolute Neuts (auto) Cancelled Absolute Lymphs (auto) Cancelled Absolute Nucleated RBC Cancelled Total Counted Cancelled Neutrophils % (Manual) Cancelled Band Neutrophils % Cancelled Lymphocytes % (Manual) Cancelled Monocytes % (Manual) Cancelled Eosinophils % (Manual) Cancelled Basophils % (Manual) Cancelled Metamyelocytes % Cancelled Myelocytes % Cancelled Promyelocytes % Cancelled Blast Cells % Cancelled Plasma Cell % (Manual) Cancelled Other Cells % Cancelled Nucleated RBC % Cancelled Nucleated RBCs/100 WBC Cancelled Differential Comment Cancelled Diff Path Review Cancelled Hypersegmented Neuts Cancelled Atypical Lymphocytes Cancelled Reactive Lymphocytes Cancelled Smudge Cells Cancelled Toxic Granulation Cancelled Toxic Vacuolation Cancelled Dohle Bodies Cancelled Rocio Rods Cancelled Platelet Estimate Cancelled Plt Morphology Comment Cancelled RBC Morphology Cancelled Polychromasia Cancelled Hypochromasia Cancelled Poikilocytosis Cancelled Basophilic Stippling Cancelled Anisocytosis Cancelled Microcytosis Cancelled Macrocytosis Cancelled Spherocytes Cancelled Sickle Cells Cancelled Target Cells Cancelled Tear Drop Cells Cancelled Ovalocytes Cancelled Stomatocytes Cancelled [place] Bodies Cancelled [place] Cells Cancelled Bite Cells Cancelled Crenated Cell Cancelled Acanthocytes (Spur) Cancelled Rouleaux Cancelled Schistocytes Cancelled Iron TIBC Iron Saturation Ferritin Vitamin B12 538 Folate CMV IgG Ab CMV IgM Ab EBV Capsid Ag IgG Ab EBV Capsid Ag IgM Ab EBV Early Antigen IgG EBV Nuclear Ag IgG Ab EBV Antibody Interp Hepatitis A IgM Ab Pending Hep Bs Antigen Pending Hep B Core IgM Ab Pending Hepatitis C Ab (EIA) Pending HIV 1&2 Antibody Non-Reactive 12/24/18 12:10 WBC 2.1 L Corrected WBC RBC 3.47 L Hgb 10.2 L Hct 34.2 L MCV 98.6 MCH 29.4 MCHC 29.8 L RDW Std Deviation 59.5 H RDW Coeff of Jaun 16.5 H Plt Count 161 MPV 9.6 Immature Gran % (Auto) 0.000 Neut % (Auto) 60.5 Lymph % (Auto) 29.5 [place] % (Auto) 8.1 Eos % (Auto) 1.4 Baso % (Auto) 0.5 Absolute Neuts (auto) 1.3 L Absolute Lymphs (auto) 0.62 L Absolute Nucleated RBC 0.00 Total Counted Neutrophils % (Manual) Band Neutrophils % Lymphocytes % (Manual) Monocytes % (Manual) Eosinophils % (Manual) Basophils % (Manual) Metamyelocytes % Myelocytes % Promyelocytes % Blast Cells % Plasma Cell % (Manual) Other Cells % Nucleated RBC % 0 Nucleated RBCs/100 WBC Differential Comment Diff Path Review Hypersegmented Neuts Atypical Lymphocytes Reactive Lymphocytes Smudge Cells Toxic Granulation Toxic Vacuolation Dohle Bodies Rocio Rods Platelet Estimate Plt Morphology Comment RBC Morphology Polychromasia Hypochromasia Poikilocytosis Basophilic Stippling Anisocytosis Microcytosis Macrocytosis Spherocytes Sickle Cells Target Cells Tear Drop Cells Ovalocytes Stomatocytes [place] Bodies Roseann Cells Bite Cells Crenated Cell Acanthocytes (Spur) Rouleaux Schistocytes Iron TIBC Iron Saturation Ferritin Vitamin B12 Folate CMV IgG Ab CMV IgM Ab EBV Capsid Ag IgG Ab EBV Capsid Ag IgM Ab EBV Early Antigen IgG EBV Nuclear Ag IgG Ab EBV Antibody Interp Hepatitis A IgM Ab Hep Bs Antigen Hep B Core IgM Ab Hepatitis C Ab (EIA) HIV 1&2 Antibody Medical Necessity - Tobacco Use Smoking Status: Former smoker Assessment/Plan All Active Problems (Last Updated 12/09/18 @ 13:23 by Blayne Santana DO) Respiratory failure with hypoxia (Acute) Respiratory insufficiency (Acute) Sepsis (Acute) right lower quadrant pain, segmental colitis clinically improving, shortness of breath, questionable right lower lobe pneumonia, leukopenia, ??I had planned to order stool cultures which the patient was an outpatient. ?I have ordered fecal WBCs, fecal occult blood, enteric pathogens, ova and parasites and C. difficile. repeat CT scan of the chest abdomen and pelvis given her worsening/persistent shortness of breath without obvious underlying etiology beyond the pneumonia. medicine service planning to start Zosyn and vancomycin. We'll attempt to obtain sputum cultures and if possible. Repeat abdominal scan demonstrates some degree of improvement without reading suggesting colitis. For now we'll continue to monitor the patient.if her symptoms fail to improve, may plan repeat colonoscopy this admission. ? I discussed with the patient the fact that her cecum was uninvolved and this seemed relatively localized in the cecal/ascending colon region that this did not make good sense. the patient noted her dog had an unusual ear infection area did she notes recent viral/herpes type mouth sores and has been persistently leukopenic. I spoke with Dr. Berkowitz, will consider getting an in fectious disease consult given this unusual picture.
[2018-12-24] MEDS: Temazepam 15 MG Capsule 30 MG PO (21:11)
[2018-12-24] MEDS: Atorvastatin Calcium 80 MG Tablet PO (21:11)
[2018-12-25] VITALS (12 sets, daily range): BP systolic 102–128; BP diastolic 51–71; PULSE 87–99; RESP 16–20; TEMP 36.6–37; O2SAT 94–97
[2018-12-25] MEDS: HYDROmorphone 1 MG/ML Syringe IV ×3 (00:43→17:42)
[2018-12-25] MEDS: Ipratropium/Albuterol Sulfate 3 ML AMPUL.NEB INHALATION ×4 (01:00→19:59)
[2018-12-25 03:51] LABS: Differential Comment SCANNED; Differential Indicated SCAN CRITERIA MET
[2018-12-25 06:25] LABS: Absolute Lymphocyte Count 0.77 X10^3/uL (0.83-4.51); Absolute Neutrophil Count 1.1 X10^3/uL (2.0-7.7); Basophil# 0.01 X10^3/uL; Basophil% 0.5 % (0-1); Eosinophil# 0.02 X10^3/uL; Eosinophils% 0.9 % (0-5); Hematocrit 37.7 % (37-47); Hemoglobin 11.2 g/dL (12.0-15.0); Lymphocyte # 0.77 X10^3/ul (4.0); Lymphocyte % 35.6 % (19-41); Mean Corp Hgb Conc 29.7 g/dL (32-36); Mean Corpuscular Hgb 29.3 pg (27.0-32.0); Mean Corpuscular Volume 98.7 fL (81-99); Mean Platelet Vol. 9.7 fl (6.2-12.0); Monocyte# 0.22 X10^3/uL; Monocyte% 10.2 % (0-10); NRBC Flagged by Analyzer 0 % (0-5); Neutrophil # 1.13 X10^3/uL (2.7-7.7); Neutrophil % 52.3 % (47-70); Platelet Count 185 K/mm3 (150-450); RBC Distribution Width CV 16.3 % (11.6-14.6); RBC Distribution Width SD 59.9 fl (35.1-43.9); Red Blood Count 3.82 M/mm3 (4.2-5.4); White Blood Count 2.2 K/mm3 (4.4-11.0)
--- NOTE | 2018-12-25 07:40 | PCM.PN.SRG ---
Subjective: still RLQ pain - Physical Exam General: Alert, Oriented x3, Cooperative Lungs: Wheezes, - Cardiovascular: Regular rate, Regular Rhythm Abdomen: Bowel Sounds Present, Soft, Tender - RLQ Vital Signs Temp Pulse Resp BP Pulse Ox 97.9 F 88 17 108/71 95 12/25/18 05:30 12/25/18 05:30 12/25/18 05:30 12/25/18 05:30 12/25/18 05:30 Oxygen Flow Rate (L/min) 2 Oxygen Delivery Method Nasal Cannula Weight: 127.4 kg Body Mass Index (BMI) 42.7 Intake and Output for Last 24 Hours 12/23/18 12/24/18 12/25/18 23:59 23:59 23:59 Intake Total 2334 / 4184 4635 / 4635 717 / 717 Balance 2334 / 4184 4635 / 4635 717 / 717 Microbiology Past 72 Hours 12/23/18 06:19 Gram Stain - Final Sputum, Expectorated/Coughed Respiratory Culture - Preliminary Appears to be normal respiratory orin. Further studies to follow. 12/23/18 14:27 Stool Lactoferrin - Final Stool Enteric Bacteriology - Final Stool Occult Blood (MADELEINE) - Final Occult Blood Positive 12/22/18 22:12 Respiratory Panel (PCR) - Final Mucosa - Nose 12/22/18 19:54 Legionella Antigen - Final Urine, Clean Catch 12/22/18 19:54 Streptococcus pneumoniae Antigen (M - Final Urine, Clean Catch Laboratory Tests Past 24 Hrs 12/23/18 12/24/18 12/24/18 05:45 10:55 10:55 WBC Corrected WBC RBC Hgb Hct MCV MCH MCHC RDW Std Deviation RDW Coeff of Jaun Plt Count MPV Immature Gran % (Auto) Neut % (Auto) Lymph % (Auto) [place] % (Auto) Eos % (Auto) Baso % (Auto) Absolute Neuts (auto) BAR ATTENDANT Absolute Lymphs (auto) BAR ATTENDANT Absolute Nucleated RBC Total Counted Neutrophils % (Manual) Band Neutrophils % Lymphocytes % (Manual) Monocytes % (Manual) Eosinophils % (Manual) Basophils % (Manual) Metamyelocytes % Myelocytes % Promyelocytes % Blast Cells % Plasma Cell % (Manual) Other Cells % Nucleated RBC % Nucleated RBCs/100 WBC Differential Comment SCANNED Diff Path Review Hypersegmented Neuts Atypical Lymphocytes Reactive Lymphocytes Smudge Cells Toxic Granulation Toxic Vacuolation Dohle Bodies Rocio Rods Platelet Estimate Plt Morphology Comment RBC Morphology Polychromasia Hypochromasia Poikilocytosis Basophilic Stippling Anisocytosis Microcytosis Macrocytosis Spherocytes Sickle Cells Target Cells Tear Drop Cells Ovalocytes Stomatocytes [place] Bodies [place] Cells Bite Cells Crenated Cell Acanthocytes (Spur) Rouleaux Schistocytes Iron TIBC Iron Saturation Ferritin Vitamin B12 Folate CMV IgG Ab Pending CMV IgM Ab Pending EBV Capsid Ag IgG Ab Pending EBV Capsid Ag IgM Ab Pending EBV Early Antigen IgG Pending EBV Nuclear Ag IgG Ab Pending EBV Antibody Interp Pending Hepatitis A IgM Ab Hep Bs Antigen Hep B Core IgM Ab Hepatitis C Ab (EIA) HIV 1&2 Antibody 12/24/18 12/24/18 12/24/18 10:55 10:55 10:55 WBC Corrected WBC RBC Hgb Hct MCV MCH MCHC RDW Std Deviation RDW Coeff of Jaun Plt Count MPV Immature Gran % (Auto) Neut % (Auto) Lymph % (Auto) [place] % (Auto) Eos % (Auto) Baso % (Auto) Absolute Neuts (auto) Absolute Lymphs (auto) Absolute Nucleated RBC Total Counted Neutrophils % (Manual) Band Neutrophils % Lymphocytes % (Manual) Monocytes % (Manual) Eosinophils % (Manual) Basophils % (Manual) Metamyelocytes % Myelocytes % Promyelocytes % Blast Cells % Plasma Cell % (Manual) Other Cells % Nucleated RBC % Nucleated RBCs/100 WBC Differential Comment Diff Path Review Hypersegmented Neuts Atypical Lymphocytes Reactive Lymphocytes Smudge Cells Toxic Granulation Toxic Vacuolation Dohle Bodies Rocio Rods Platelet Estimate Plt Morphology Comment RBC Morphology Polychromasia Hypochromasia Poikilocytosis Basophilic Stippling Anisocytosis Microcytosis Macrocytosis Spherocytes Sickle Cells Target Cells Tear Drop Cells Ovalocytes Stomatocytes [place] Bodies Roseann Cells Bite Cells Crenated Cell Acanthocytes (Spur) Rouleaux Schistocytes Iron 60 TIBC 450 Iron Saturation 13.3 L Ferritin 79 Vitamin B12 538 Folate 8.90 CMV IgG Ab CMV IgM Ab EBV Capsid Ag IgG Ab EBV Capsid Ag IgM Ab EBV Early Antigen IgG EBV Nuclear Ag IgG Ab EBV Antibody Interp Hepatitis A IgM Ab Pending Hep Bs Antigen Pending Hep B Core IgM Ab Pending Hepatitis C Ab (EIA) Pending HIV 1&2 Antibody Non-Reactive 12/24/18 12/24/18 12/25/18 10:55 12:10 06:00 WBC Cancelled 2.1 L 2.2 L Corrected WBC Cancelled RBC Cancelled 3.47 L 3.82 L Hgb Cancelled 10.2 L 11.2 L Hct Cancelled 34.2 L 37.7 MCV Cancelled 98.6 98.7 MCH Cancelled 29.4 29.3 MCHC Cancelled 29.8 L 29.7 L RDW Std Deviation Cancelled 59.5 H 59.9 H RDW Coeff of Jaun Cancelled 16.5 H 16.3 H Plt Count Cancelled 161 185 MPV Cancelled 9.6 9.7 Immature Gran % (Auto) Cancelled 0.000 0.500 Neut % (Auto) Cancelled 60.5 52.3 Lymph % (Auto) Cancelled 29.5 35.6 [place] % (Auto) Cancelled 8.1 10.2 H Eos % (Auto) Cancelled 1.4 0.9 Baso % (Auto) Cancelled 0.5 0.5 Absolute Neuts (auto) Cancelled 1.3 L 1.1 L Absolute Lymphs (auto) Cancelled 0.62 L 0.77 L Absolute Nucleated RBC Cancelled 0.00 0.00 Total Counted Cancelled Neutrophils % (Manual) Cancelled Band Neutrophils % Cancelled Lymphocytes % (Manual) Cancelled Monocytes % (Manual) Cancelled Eosinophils % (Manual) Cancelled Basophils % (Manual) Cancelled Metamyelocytes % Cancelled Myelocytes % Cancelled Promyelocytes % Cancelled Blast Cells % Cancelled Plasma Cell % (Manual) Cancelled Other Cells % Cancelled Nucleated RBC % Cancelled 0 0 Nucleated RBCs/100 WBC Cancelled Differential Comment Cancelled Diff Path Review Cancelled Hypersegmented Neuts Cancelled Atypical Lymphocytes Cancelled Reactive Lymphocytes Cancelled Smudge Cells Cancelled Toxic Granulation Cancelled Toxic Vacuolation Cancelled Dohle Bodies Cancelled Rocio Rods Cancelled Platelet Estimate Cancelled Plt Morphology Comment Cancelled RBC Morphology Cancelled Polychromasia Cancelled Hypochromasia Cancelled Poikilocytosis Cancelled Basophilic Stippling Cancelled Anisocytosis Cancelled Microcytosis Cancelled Macrocytosis Cancelled Spherocytes Cancelled Sickle Cells Cancelled Target Cells Cancelled Tear Drop Cells Cancelled Ovalocytes Cancelled Stomatocytes Cancelled [place] Bodies Cancelled Roseann Cells Cancelled Bite Cells Cancelled Crenated Cell Cancelled Acanthocytes (Spur) Cancelled Rouleaux Cancelled Schistocytes Cancelled Iron TIBC Iron Saturation Ferritin Vitamin B12 Folate CMV IgG Ab CMV IgM Ab EBV Capsid Ag IgG Ab EBV Capsid Ag IgM Ab EBV Early Antigen IgG EBV Nuclear Ag IgG Ab EBV Antibody Interp Hepatitis A IgM Ab Hep Bs Antigen Hep B Core IgM Ab Hepatitis C Ab (EIA) HIV 1&2 Antibody Medical Necessity - Tobacco Use Smoking Status: Former smoker Assessment/Plan All Active Problems (Last Updated 12/09/18 @ 13:23 by Blayne Santana, ) Respiratory failure with hypoxia (Acute) Respiratory insufficiency (Acute) Sepsis (Acute) right lower quadrant pain, segmental colitis clinically improving, shortness of breath, questionable right lower lobe pneumonia, leukopenia, ??I had planned to order stool cultures which the patient was an outpatient. ?I have ordered fecal WBCs, fecal occult blood, enteric pathogens, ova and parasites and C. difficile. repeat CT scan of the chest abdomen and pelvis given her worsening/persistent shortness of breath without obvious underlying etiology beyond the pneumonia. medicine service planning to start Zosyn and vancomycin. We'll attempt to obtain sputum cultures and if possible. Repeat abdominal scan demonstrates some degree of improvement without reading suggesting colitis. For now we'll continue to monitor the patient.if her symptoms fail to improve, may plan repeat colonoscopy this admission. ? I discussed with the patient the fact that her cecum was uninvolved and this seemed relatively localized in the cecal/ascending colon region that this did not make good sense. the patient noted her dog had an unusual ear infection area did she notes recent viral/herpes type mouth sores and has been persistently leukopenic. I spoke with Dr. Berkowitz, will consider getting an infectious disease consult given this unusual picture.
--- NOTE | 2018-12-25 08:26 | PN_ITS ---
Subjective: Chief complaint: Follow-up after admission for right lower lobe healthcare associated pneumonia, abdominal pain with recent history of ascending colitis and also found to have leukopenia/neutropenia. Patient seen and examined. No acute events overnight. She is still complaining of right lower quadrant abdominal pain but improved. She has been tolerating diet. Denies nausea or vomiting. Denies fever or chills. Her vital signs are stable. - Physical Exam General: Alert, Oriented x3, Cooperative, No apparent distress HEENT: Atraumatic, PERRLA, EOMI, Normocephalic Oral: Moist Mucosa, No Gingival or Mucosal Lesions/ Ulcerations Neck: Supple, No JVD, Negative Carotid Bruits, Trachea Midline, Thyroid Normal Size and Texture Lungs: No rhonchi, No rales, Diminished, Wheezes, - - Decreased breath sounds bilateral, bilateral expiratory wheezes. Cardiovascular: Regular rate, Regular Rhythm, Normal S1, Normal S2, No murmurs, PMI Normal Abdomen: Bowel Sounds Present, Soft, Non-Distended, No Hepato-splenomegaly, Tender - Minimal right lower quadrant tenderness. Extremities: No clubbing, No cyanosis, No edema Skin: No rashes, No breakdown Lymphatic: No Cervical, Supraclavicular, or Inguinal Adenopathy Neurological: Cranial nerves II-XII grossly intact, Neuro grossly intact Psych/Mental Status: Normal Affect, Appropriate, Alert and oriented to time, place, person, mood and affect Vital Signs Temp Pulse Resp BP Pulse Ox 97.9 F 88 17 108/71 95 12/25/18 05:30 12/25/18 05:30 12/25/18 05:30 12/25/18 05:30 12/25/18 05:30 Oxygen Flow Rate (L/min) 2 Oxygen Delivery Method Nasal Cannula Weight: 280 lb 13.903 oz Body Mass Index (BMI) 42.7 Intake and Output for Last 24 Hours 12/23/18 12/24/18 12/25/18 23:59 23:59 23:59 Intake Total 2334 / 4184 4635 / 4635 717 / 717 Balance 2334 / 4184 4635 / 4635 717 / 717 Microbiology Past 72 Hours 12/23/18 06:19 Gram Stain - Final Sputum, Expectorated/Coughed Respiratory Culture - Final 12/23/18 14:27 Stool Lactoferrin - Final Stool Enteric Bacteriology - Final Stool Occult Blood (MADELEINE) - Final Occult Blood Positive 12/22/18 22:12 Respiratory Panel (PCR) - Final Mucosa - Nose 12/22/18 19:54 Legionella Antigen - Final Urine, Clean Catch 12/22/18 19:54 Streptococcus pneumoniae Antigen (M - Final Urine, Clean Catch Laboratory Tests Past 24 Hrs 12/23/18 12/24/18 12/24/18 05:45 10:55 10:55 WBC Corrected WBC RBC Hgb Hct MCV MCH MCHC RDW Std Deviation RDW Coeff of Jaun Plt Count MPV Immature Gran % (Auto) Neut % (Auto) Lymph % (Auto) [place] % (Auto) Eos % (Auto) Baso % (Auto) Absolute Neuts (auto) SLICE PLUG CUTTER OPERATOR HELPER Absolute Lymphs (auto) SLICE PLUG CUTTER OPERATOR HELPER Absolute Nucleated RBC Total Counted Neutrophils % (Manual) Band Neutrophils % Lymphocytes % (Manual) Monocytes % (Manual) Eosinophils % (Manual) Basophils % (Manual) Metamyelocytes % Myelocytes % Promyelocytes % Blast Cells % Plasma Cell % (Manual) Other Cells % Nucleated RBC % Nucleated RBCs/100 WBC Differential Comment SCANNED Diff Path Review Hypersegmented Neuts Atypical Lymphocytes Reactive Lymphocytes Smudge Cells Toxic Granulation Toxic Vacuolation Dohle Bodies Rocio Rods Platelet Estimate Plt Morphology Comment RBC Morphology Polychromasia Hypochromasia Poikilocytosis Basophilic Stippling Anisocytosis Microcytosis Macrocytosis Spherocytes Sickle Cells Target Cells Tear Drop Cells Ovalocytes Stomatocytes Montoya-Kidron Bodies [place] Cells Bite Cells Crenated Cell Acanthocytes (Spur) Rouleaux Schistocytes Iron TIBC Iron Saturation Ferritin Vitamin B12 Folate CMV IgG Ab Pending CMV IgM Ab Pending EBV Capsid Ag IgG Ab Pending EBV Capsid Ag IgM Ab Pending EBV Early Antigen IgG Pending EBV Nuclear Ag IgG Ab Pending EBV Antibody Interp Pending Hepatitis A IgM Ab Hep Bs Antigen Hep B Core IgM Ab Hepatitis C Ab (EIA) HIV 1&2 Antibody 12/24/18 12/24/18 12/24/18 10:55 10:55 10:55 WBC Corrected WBC RBC Hgb Hct MCV MCH MCHC RDW Std Deviation RDW Coeff of Jaun Plt Count MPV Immature Gran % (Auto) Neut % (Auto) Lymph % (Auto) [place] % (Auto) Eos % (Auto) Baso % (Auto) Absolute Neuts (auto) Absolute Lymphs (auto) Absolute Nucleated RBC Total Counted Neutrophils % (Manual) Band Neutrophils % Lymphocytes % (Manual) Monocytes % (Manual) Eosinophils % (Manual) Basophils % (Manual) Metamyelocytes % Myelocytes % Promyelocytes % Blast Cells % Plasma Cell % (Manual) Other Cells % Nucleated RBC % Nucleated RBCs/100 WBC Differential Comment Diff Path Review Hypersegmented Neuts Atypical Lymphocytes Reactive Lymphocytes Smudge Cells Toxic Granulation Toxic Vacuolation Dohle Bodies Rocio Rods Platelet Estimate Plt Morphology Comment RBC Morphology Polychromasia Hypochromasia Poikilocytosis Basophilic Stippling Anisocytosis Microcytosis Macrocytosis Spherocytes Sickle Cells Target Cells Tear Drop Cells Ovalocytes Stomatocytes Montoya-Kidron Bodies Roseann Cells Bite Cells Crenated Cell Acanthocytes (Spur) Rouleaux Schistocytes Iron 60 TIBC 450 Iron Saturation 13.3 L Ferritin 79 Vitamin B12 538 Folate 8.90 CMV IgG Ab CMV IgM Ab EBV Capsid Ag IgG Ab EBV Capsid Ag IgM Ab EBV Early Antigen IgG EBV Nuclear Ag IgG Ab EBV Antibody Interp Hepatitis A IgM Ab Pending Hep Bs Antigen Pending Hep B Core IgM Ab Pending Hepatitis C Ab (EIA) Pending HIV 1&2 Antibody Non-Reactive 12/24/18 12/24/18 12/25/18 10:55 12:10 06:00 WBC Cancelled 2.1 L 2.2 L Corrected WBC Cancelled RBC Cancelled 3.47 L 3.82 L Hgb Cancelled 10.2 L 11.2 L Hct Cancelled 34.2 L 37.7 MCV Cancelled 98.6 98.7 MCH Cancelled 29.4 29.3 MCHC Cancelled 29.8 L 29.7 L RDW Std Deviation Cancelled 59.5 H 59.9 H RDW Coeff of Jaun Cancelled 16.5 H 16.3 H Plt Count Cancelled 161 185 MPV Cancelled 9.6 9.7 Immature Gran % (Auto) Cancelled 0.000 0.500 Neut % (Auto) Cancelled 60.5 52.3 Lymph % (Auto) Cancelled 29.5 35.6 [place] % (Auto) Cancelled 8.1 10.2 H Eos % (Auto) Cancelled 1.4 0.9 Baso % (Auto) Cancelled 0.5 0.5 Absolute Neuts (auto) Cancelled 1.3 L 1.1 L Absolute Lymphs (auto) Cancelled 0.62 L 0.77 L Absolute Nucleated RBC Cancelled 0.00 0.00 Total Counted Cancelled Neutrophils % (Manual) Cancelled Band Neutrophils % Cancelled Lymphocytes % (Manual) Cancelled Monocytes % (Manual) Cancelled Eosinophils % (Manual) Cancelled Basophils % (Manual) Cancelled Metamyelocytes % Cancelled Myelocytes % Cancelled Promyelocytes % Cancelled Blast Cells % Cancelled Plasma Cell % (Manual) Cancelled Other Cells % Cancelled Nucleated RBC % Cancelled 0 0 Nucleated RBCs/100 WBC Cancelled Differential Comment Cancelled Diff Path Review Cancelled Hypersegmented Neuts Cancelled Atypical Lymphocytes Cancelled Reactive Lymphocytes Cancelled Smudge Cells Cancelled Toxic Granulation Cancelled Toxic Vacuolation Cancelled Dohle Bodies Cancelled Rocio Rods Cancelled Platelet Estimate Cancelled Plt Morphology Comment Cancelled RBC Morphology Cancelled Polychromasia Cancelled Hypochromasia Cancelled Poikilocytosis Cancelled Basophilic Stippling Cancelled Anisocytosis Cancelled Microcytosis Cancelled Macrocytosis Cancelled Spherocytes Cancelled Sickle Cells Cancelled Target Cells Cancelled Tear Drop Cells Cancelled Ovalocytes Cancelled Stomatocytes Cancelled Montoya-Kidron Bodies Cancelled Roseann Cells Cancelled Bite Cells Cancelled Crenated Cell Cancelled Acanthocytes (Spur) Cancelled Rouleaux Cancelled Schistocytes Cancelled Iron TIBC Iron Saturation Ferritin Vitamin B12 Folate CMV IgG Ab CMV IgM Ab EBV Capsid Ag IgG Ab EBV Capsid Ag IgM Ab EBV Early Antigen IgG EBV Nuclear Ag IgG Ab EBV Antibody Interp Hepatitis A IgM Ab Hep Bs Antigen Hep B Core IgM Ab Hepatitis C Ab (EIA) HIV 1&2 Antibody Medical Necessity - Tobacco Use Smoking Status: Former smoker Assessment/Plan All Active Problems (Last Updated 12/09/18 @ 13:23 by Blayne Santana DO) Respiratory failure with hypoxia (Acute) Respiratory insufficiency (Acute) Sepsis (Acute) This is a 58 years old female patient presented to the emergency room with shortness of breath and productive cough as well as abdominal pain and she was found to have a right lower lobe healthcare associated pneumonia, recent history of ascending colitis still complaining of abdominal pain and also found to have neutropenia and leukopenia. #1 right lower lobe healthcare associated pneumonia: Now, she is on IV Rocephin, antibiotics adjusted by infectious disease. Patient still having significant wheezing. Her vital signs are stable, afebrile. She is leukopenic and neutropenic. pneumococcal and Legionella antigen were negative. Respiratory panel for viruses was negative. Sputum culture revealed mixed normal respiratory orin. Patient has history of asthma as a child and she quit smoking 15 years ago. Never been diagnosed with COPD. Her pulse ox is maintained on 2 L. Plan: Start IV Solu-Medrol, continue IV Rocephin. #2 abdominal pain/recent history of ascending colitis: She is still symptomatic, minimal improvement, has been tolerating full liquid diet. She is afebrile, vital signs are stable. She is on IV Dilaudid for pain, IV fluids and antiemetics. CT scan abdomen and pelvis with IV contrast reviewed, revealed no asymmetric changes. Previous CT scan abdomen reviewed with Dr. Valente. Colonic biopsy that was done around 2 weeks ago revealed fragments of ischemic mucosa. Plan advance diet as tolerated if okay with surgery. #3 leukopenia/neutropenia: Unclear etiology. She is not on any medication that can cause leukopenia or neutropenia. Appreciate infectious disease recommendations and input. Serum iron, ferritin and TIBC were normal. RBC folate and B12 were normal as well. HIV 1 and 2 antibodies are low negative. Hepatitis screen as well as CMV and EBV viral serologies pending. Plan: Consult hematology. #4 left liver lobe lesion: This is an incidental finding on CT scan abdomen. Ultrasound liver done and revealed hemangioma. #5 hyperlipidemia: Continue statins. #6 suspected COPD: Patient is previous smoker. She quit smoking 13 years ago. She still having significant wheezing and remained on oxygen at 2 L. She is on bronchodilators. Plan to start IV steroids as above. #7 DVT prophylaxis: Low risk patient, no prophylaxis indicated. This note was generated with [employer] dictation software. It may contain incorrect words, spelling, and punctuation that were not noted in checking the note before signing. Code Visit Inpatient E&M: 88101 Subs Hosp L2
[2018-12-25 09:27] LABS: HEPATITIS B SURFACE AG Negative (Negative); Hepatitis A IgM Antibody Negative (Negative); Hepatitis B Core AB IgM Negative (Negative)
[2018-12-25 09:28] LABS: CMV Acute Antibody IgM < 30.0 AU/mL (0.0-29.9); CMV Antibody IgG < 0.60 U/mL (0.00-0.59); Hep C Antibodies 0.1 s/co ratio (0.0-0.9)
[2018-12-25] MEDS: guaiFENesin 1,200 MG Tablet 1200 MG PO ×2 (09:40→21:51)
[2018-12-25] MEDS: Pantoprazole Sodium 40 MG Tablet PO (09:40)
[2018-12-25] MEDS: 0.9% NaCl Peripheral Flush Adult/Peds IV ×4 (09:40→21:50)
[2018-12-25] MEDS: oxyCODONE 5 MG Tablet PO ×3 (10:21→21:50)
--- NOTE | 2018-12-25 12:09 | PN.ID_ITS ---
Subjective: Feeling better, less SOB, still some RLQ abd pain. No fever. - Physical Exam General: Alert, Cooperative, No apparent distress Lungs: Clear to auscultation, Normal air movement Cardiovascular: Regular rate, Regular Rhythm Abdomen: Soft, Non Tender, Non-Distended Skin: No rashes Vital Signs Temp Pulse Resp BP Pulse Ox 98.2 F 87 16 104/51 L 97 12/25/18 10:19 12/25/18 10:19 12/25/18 10:19 12/25/18 10:19 12/25/18 10:19 Oxygen Flow Rate (L/min) 2 Oxygen Delivery Method Nasal Cannula Weight: 127.4 kg Body Mass Index (BMI) 42.7 Intake and Output for Last 24 Hours 12/23/18 12/24/18 12/25/18 23:59 23:59 23:59 Intake Total 2334 / 4184 4635 / 4635 717 / 717 Balance 2334 / 4184 4635 / 4635 717 / 717 Microbiology Past 72 Hours 12/23/18 06:19 Gram Stain - Final Sputum, Expectorated/Coughed Respiratory Culture - Final 12/23/18 14:27 Stool Lactoferrin - Final Stool Enteric Bacteriology - Final Stool Occult Blood (MADELEINE) - Final Occult Blood Positive 12/22/18 22:12 Respiratory Panel (PCR) - Final Mucosa - Nose 12/22/18 19:54 Legionella Antigen - Final Urine, Clean Catch 12/22/18 19:54 Streptococcus pneumoniae Antigen (M - Final Urine, Clean Catch Laboratory Tests Past 24 Hrs 12/23/18 12/24/18 12/24/18 05:45 10:55 10:55 WBC RBC Hgb Hct MCV MCH MCHC RDW Std Deviation RDW Coeff of Jaun Plt Count MPV Immature Gran % (Auto) Neut % (Auto) Lymph % (Auto) [place] % (Auto) Eos % (Auto) Baso % (Auto) Absolute Neuts (auto) OPERATIONS LABEL CLERK Absolute Lymphs (auto) OPERATIONS LABEL CLERK Absolute Nucleated RBC Nucleated RBC % Differential Comment SCANNED Vitamin B12 538 CMV IgG Ab < 0.60 CMV IgM Ab < 30.0 Hepatitis A IgM Ab Hep Bs Antigen Hep B Core IgM Ab Hepatitis C Ab (EIA) HIV 1&2 Antibody Non-Reactive 12/24/18 12/24/18 12/25/18 10:55 12:10 06:00 WBC 2.1 L 2.2 L RBC 3.47 L 3.82 L Hgb 10.2 L 11.2 L Hct 34.2 L 37.7 MCV 98.6 98.7 MCH 29.4 29.3 MCHC 29.8 L 29.7 L RDW Std Deviation 59.5 H 59.9 H RDW Coeff of Jaun 16.5 H 16.3 H Plt Count 161 185 MPV 9.6 9.7 Immature Gran % (Auto) 0.000 0.500 Neut % (Auto) 60.5 52.3 Lymph % (Auto) 29.5 35.6 [place] % (Auto) 8.1 10.2 H Eos % (Auto) 1.4 0.9 Baso % (Auto) 0.5 0.5 Absolute Neuts (auto) 1.3 L 1.1 L Absolute Lymphs (auto) 0.62 L 0.77 L Absolute Nucleated RBC 0.00 0.00 Nucleated RBC % 0 0 Differential Comment Vitamin B12 CMV IgG Ab CMV IgM Ab Hepatitis A IgM Ab Negative Hep Bs Antigen Negative Hep B Core IgM Ab Negative Hepatitis C Ab (EIA) 0.1 HIV 1&2 Antibody Medical Necessity - Tobacco Use Smoking Status: Former smoker Route of nutrition/ use of supplements: [] Nutritional Intake: [] IV Site: [] [place] Catheter: [] - Assessment/Plan Antibiotics: [] Assessment/Plan: [] CAP - improving. Sputum cx with normal orin, UAgs neg. 12/24 narrowed abx from vanc/cefepime to ceftriaxone. Breathing and exam better with steroids. colitis - overall improving, followed by Dr. Hernandez. leukopenia - checking basic labs including iron studies, folic acid, B12, hep panel, HIV, ebv/cmv. Heme consulted. HIV was neg. Will follow
[2018-12-25] MEDS: proCHLORPERazine 10 MG/2 ML Vial 5 MG IV (13:46)
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
[2018-12-25] MEDS: Temazepam 15 MG Capsule 30 MG PO (21:51)
[2018-12-25] MEDS: Atorvastatin Calcium 80 MG Tablet PO (21:51)
[2018-12-26 02:50] VITALS: BP 129/78; PULSE 84; PULSE 93; RESP 18; TEMP 36.4; O2SAT 95
[2018-12-26] MEDS: Ipratropium/Albuterol Sulfate 3 ML AMPUL.NEB INHALATION ×2 (02:52→07:20)
[2018-12-26] MEDS: oxyCODONE 5 MG Tablet PO ×2 (02:52→07:50)
[2018-12-26 02:55] VITALS: O2SAT 94
[2018-12-26] MEDS: 0.9% NaCl Peripheral Flush Adult/Peds IV (06:21)
[2018-12-26 06:46] LABS: Hematocrit 36.8 % (37-47); Hemoglobin 11.5 g/dL (12.0-15.0); Lymphocyte % 16.5 % (19-41); Mean Corp Hgb Conc 31.3 g/dL (32-36); Mean Corpuscular Hgb 29.6 pg (27.0-32.0); Mean Corpuscular Volume 94.6 fL (81-99); Monocyte# 0.09 X10^3/uL; Monocyte% 3.7 % (0-10); NRBC Flagged by Analyzer 0 % (0-5); Neutrophil # 1.93 X10^3/uL (2.7-7.7); Neutrophil % 79.4 % (47-70); POSITIVE DIFFERENTIAL YES; POSITIVE MORPHOLOGY YES; Platelet Count 199 K/mm3 (150-450); RBC Distribution Width CV 15.5 % (11.6-14.6); RBC Distribution Width SD 53.9 fl (35.1-43.9); Red Blood Count 3.89 M/mm3 (4.2-5.4); White Blood Count 2.4 K/mm3 (4.4-11.0)
[2018-12-26 06:49] LABS: Differential Indicated SCAN CRITERIA MET
--- NOTE | 2018-12-26 07:15 | PN.SURG_ITS ---
Patient Problems: Active and Suspected Problems (Last Updated 12/09/18 @ 13:23 by Blayne Santana DO) Neutropenia (Acute) Anemia (Acute) Abnormal liver CT (Acute) Subjective: notes less RLQ pain - Physical Exam General: Alert, Oriented x3, Cooperative Lungs: Wheezes, - - coarse breath sounds right base Cardiovascular: Regular rate, No murmurs Abdomen: Bowel Sounds Present, Soft Vital Signs Temp Pulse Resp BP Pulse Ox 97.6 F L 93 18 129/78 H 94 12/26/18 02:50 12/26/18 02:50 12/26/18 02:50 12/26/18 02:50 12/26/18 02:55 Oxygen Flow Rate (L/min) 3 Oxygen Delivery Method Bi-pap Weight: 127.4 kg Body Mass Index (BMI) 42.7 Intake and Output for Last 24 Hours 12/24/18 12/25/18 12/26/18 23:59 23:59 23:59 Intake Total 4635 / 4635 2611 / 2611 Balance 4635 / 4635 2611 / 2611 Microbiology Past 72 Hours 12/23/18 06:19 Gram Stain - Final Sputum, Expectorated/Coughed Respiratory Culture - Final 12/23/18 14:27 Stool Lactoferrin - Final Stool Enteric Bacteriology - Final Stool Occult Blood (MADELEINE) - Final Occult Blood Positive 12/22/18 22:12 Respiratory Panel (PCR) - Final Mucosa - Nose Laboratory Tests Past 24 Hrs 12/24/18 12/24/18 12/26/18 10:55 10:55 05:45 WBC 2.4 L RBC 3.89 L Hgb 11.5 L Hct 36.8 L MCV 94.6 MCH 29.6 MCHC 31.3 L RDW Std Deviation 53.9 H RDW Coeff of Jaun 15.5 H Plt Count 199 MPV 10.0 Immature Gran % (Auto) 0.400 Neut % (Auto) 79.4 H Lymph % (Auto) 16.5 L [place] % (Auto) 3.7 Eos % (Auto) 0.0 Baso % (Auto) 0.0 Absolute Neuts (auto) Not Reportable Absolute Nucleated RBC 0.00 Nucleated RBC % 0 CMV IgG Ab < 0.60 CMV IgM Ab < 30.0 Hepatitis A IgM Ab Negative Hep Bs Antigen Negative Hep B Core IgM Ab Negative Hepatitis C Ab (EIA) 0.1 Medical Necessity - Tobacco Use Smoking Status: Former smoker Assessment/Plan All Active Problems (Last Updated 12/09/18 @ 13:23 by Blayne Santana DO) Respiratory failure with hypoxia (Acute) Respiratory insufficiency (Acute) Sepsis (Acute) Neutropenia (Acute) Anemia (Acute) Abnormal liver CT (Acute) right lower quadrant pain, segmental colitis clinically improving, shortness of breath, questionable right lower lobe pneumonia, leukopenia, ??I had planned to order stool cultures which the patient was an outpatient. ?I have ordered fecal WBCs, fecal occult blood, enteric pathogens, ova and parasites and C. difficile. repeat CT scan of the chest abdomen and pelvis given her worsening/persistent shortness of breath without obvious underlying etiology beyond the pneumonia. medicine service planning to start Zosyn and vancomycin. We'll attempt to obtain sputum cultures and if possible. Repeat abdominal scan demonstrates some degree of improvement without reading suggesting colitis. plan to advance diet to regular diet as patient is tolerating full liquids with oatmeal. ? I discussed with the patient the fact that her cecum was uninvolved and this seemed relatively localized in the cecal/ascending colon region that this did not make good sense. the patient noted her dog had an unusual ear infection area did she notes recent viral/herpes type mouth sores and has been persistently leukopenic. I spoke with Dr. Berkowitz, will consider getting an infectious disease consult given this unusual picture. I am comfortable with the patient being discharged from the abdominal symptoms standpoint. I plan to perform repeat colonoscopy next week.
[2018-12-26 07:20] VITALS: PULSE 93; RESP 16; O2SAT 95
--- NOTE | 2018-12-26 08:26 | CPS ---
pt placed back on at home 02 setting
[2018-12-26 08:50] VITALS: BP 142/77; PULSE 103; RESP 16; TEMP 37.1; O2SAT 92
[2018-12-26] MEDS: Pantoprazole Sodium 40 MG Tablet PO (08:58)
[2018-12-26] MEDS: guaiFENesin 1,200 MG Tablet 1200 MG PO (08:58)
[2018-12-26 09:42] LABS: EBV Acute VCA IgM < 36.0 U/mL (0.0-35.9); EBV Early Antigen IgG <9.0 U/mL (0.0-8.9); EBV Nuclear Antigen IgG < 18.0 U/mL (0.0-17.9); EBV-VCA IgG 25.4 U/mL (0.0-17.9)
--- NOTE | 2018-12-26 10:05 | PN.ID_ITS ---
Patient Problems: Active and Suspected Problems (Last Updated 12/09/18 @ 13:23 by Blayne Santana DO) Neutropenia (Acute) Anemia (Acute) Abnormal liver CT (Acute) Subjective: Feeling better, no fever, abd pain improved, much less SOB. - Physical Exam General: Alert, Cooperative, No apparent distress Lungs: Clear to auscultation, Normal air movement Cardiovascular: Regular rate, Regular Rhythm Abdomen: Soft, Non Tender, Non-Distended Skin: No rashes Vital Signs Temp Pulse Resp BP Pulse Ox 98.7 F 103 H 16 142/77 H 92 12/26/18 08:50 12/26/18 08:50 12/26/18 08:50 12/26/18 08:50 12/26/18 08:50 Oxygen Flow Rate (L/min) 2 Oxygen Delivery Method Room Air Weight: 127.4 kg Body Mass Index (BMI) 42.7 Intake and Output for Last 24 Hours 12/24/18 12/25/18 12/26/18 23:59 23:59 23:59 Intake Total 4635 / 4635 2611 / 2611 Balance 4635 / 4635 2611 / 2611 Microbiology Past 72 Hours 12/23/18 06:19 Gram Stain - Final Sputum, Expectorated/Coughed Respiratory Culture - Final 12/23/18 14:27 Stool Lactoferrin - Final Stool Enteric Bacteriology - Final Stool Occult Blood (MADELEINE) - Final Occult Blood Positive 12/22/18 22:12 Respiratory Panel (PCR) - Final Mucosa - Nose Laboratory Tests Past 24 Hrs 12/24/18 12/26/18 10:55 05:45 WBC 2.4 L RBC 3.89 L Hgb 11.5 L Hct 36.8 L MCV 94.6 MCH 29.6 MCHC 31.3 L RDW Std Deviation 53.9 H RDW Coeff of Jaun 15.5 H Plt Count 199 MPV 10.0 Immature Gran % (Auto) 0.400 Neut % (Auto) 79.4 H Lymph % (Auto) 16.5 L [place] % (Auto) 3.7 Eos % (Auto) 0.0 Baso % (Auto) 0.0 Absolute Neuts (auto) Not Reportable Absolute Nucleated RBC 0.00 Nucleated RBC % 0 Differential Comment COMMENT Diff Path Review May foll EBV Capsid Ag IgG Ab 25.4 H EBV Capsid Ag IgM Ab < 36.0 EBV Early Antigen IgG <9.0 EBV Nuclear Ag IgG Ab < 18.0 EBV Antibody Interp Comment Medical Necessity - Tobacco Use Smoking Status: Former smoker Route of nutrition/ use of supplements: [] Nutritional Intake: [] IV Site: [] [place] Catheter: [] - Assessment/Plan Antibiotics: [] Assessment/Plan: [] CAP - improving. Sputum cx with normal orin, UAgs neg. 12/24 narrowed abx from vanc/cefepime to ceftriaxone. Breathing and exam better with steroids. Ok for d/c home on 3 days of omnicef. Will write rx. colitis - overall improving, followed by Dr. Hernandez. leukopenia - checking basic labs including iron studies, folic acid, B12, hep panel, HIV, ebv/cmv. Heme consulted. HIV was neg. Will follow, d/w nurse outreach case manager
--- NOTE | 2018-12-26 10:11 | PCM.DC ---
- Discharge Diagnoses Current Active Problems: Current Active and Chronic Problems (Last Updated 12/09/18 @ 13:23 by Blayne Santana DO) Neutropenia (Acute) Anemia (Acute) Abnormal liver CT (Acute) You will use the following diet at home:: Regular Your food should be the consistency of: Regular Discharge Activity: Return to Normal Activity, May not drive while taking narcotic pain medications. Weight Bearing Status: Full weight bearing Call your doctor if you observe: Fever of 101 or Higher, Shortness of breath, Dizziness, Fainting spells, Chest pain, Increased palpitations (irregular heartbeat), Uncontrolled pain Allergies/Adverse Reactions: Allergies Penicillins Allergy (Verified 12/22/18 13:21) Unknown DUST Allergy (Uncoded 12/22/18 13:21) Unknown SEASONAL Allergy (Uncoded 12/22/18 13:21) Unknown Medications to take at Discharge Albuterol Inhaler [Ventolin Hfa] 1 - 2 puff INHALATION Q4H PRN PRN 12/09/18 Pantoprazole Sodium [Protonix] 40 mg PO DAILY 12/09/18 Rosuvastatin Calcium 40 mg PO QHS 12/09/18 Acetaminophen [Tylenol Tablet] 650 mg PO Q6H PRN PRN tab 12/13/18 Cefdinir [Omnicef [equiv]] 300 mg PO Q12H #6 cap 12/26/18 Oxycodone [Oxyir] 5 mg PO Q8H PRN PRN 3 Days #10 tab 12/26/18 Prednisone [Deltasone] 40 mg PO DAILY #10 tab 12/26/18 Temazepam [Restoril] 30 mg PO QHS PRN PRN #14 cap 12/26/18 The following prescriptions were given: Prednisone [Deltasone] 40 mg PO DAILY #10 tab Transmission Status: Pending to [facility] Cefdinir [Omnicef [equiv]] 300 mg PO Q12H #6 cap Transmission Status: Received by [facility] Oxycodone [Oxyir] 5 mg PO Q8H PRN PRN 3 Days #10 tab PRN Reason: Severe Pain (-03/13) Prescription Printed Temazepam [Restoril] 30 mg PO QHS PRN PRN #14 cap PRN Reason: Insomnia Prescription Printed Primary Care Physician: Karl Moran MD [Primary Care Provider] - Please follow up with your Primary Care Physician in: 2 weeks. Test Results: Test results from this visit will be discussed in further detail at your follow-up appointment, if applicable. Please Follow Up With: Rui Hernandez MD When: as per Dr. Valente Please Follow Up With: Yahaira Oates MD When: 2-3 weeks.
--- NOTE | 2018-12-26 11:58 | PCM.DC.SUM ---
Discharge Date and Diagnosis - Problem List Patient Problems: Active and Suspected Problems (Last Updated 12/09/18 @ 13:23 by Blayne Santana DO) Neutropenia (Acute) Anemia (Acute) Abnormal liver CT (Acute) Date of Admission: 12/22/18 Date of Discharge: 12/26/18 - Primary Discharge Diagnosis Active and Suspected Problems (Last Updated 12/09/18 @ 13:23 by Blayne Santana DO) #1 right lower lobe healthcare associated pneumonia. #2 persistent abdominal pain/recent history of ascending colitis. #3 leukopenia/neutropenia. #4 left liver lobe hemangioma. #5 suspected COPD. - Secondary Discharge Diagnosis Chronic Problems (Last Updated 12/09/18 @ 13:23 by Blayne Santana DO) Gastroesophageal reflux disease (Chronic) Hypertension (Chronic) Colitis with rectal bleeding (Chronic) Hospital Course and Treatment Imaging Results: Clinical Impression(s) from Imaging Studies Abdomen/Pelvis CT 12/22/18 13:47 IMPRESSION: 1. Fibrotic atelectatic changes are favored over pneumonia in the right lower lobe. 2. A 1.3 cm lesion in the left lobe of the liver, not adequately characterized. If there is known primary malignancy or elevated LFTs, consider multiphase, contrast enhanced MRI for further evaluation. 3. Mild splenic enlargement. 4. Right renal cyst. Additional chronic changes detailed above. Electronically Signed: Nisa Flores MD at 16:45 EDT Tel , Service support , ADDENDUM: 12/22/18 1702 Chest CTA 12/22/18 13:48 IMPRESSION: 1. Right lower lobe pneumonia. 2. No obvious pulmonary emboli. Evaluation is limited due to suboptimal pulmonary arterial opacification. Electronically Signed: Nisa Flores MD at 16:57 EDT Tel , Service support , Liver Ultrasound 12/23/18 09:41 IMPRESSION: Left hepatic lobe hemangioma concordant with findings seen on prior study. Limited visualization of the right kidney. The cysts seen on the prior study are not well visualized on this ultrasound. Status post cholecystectomy. Electronically Signed: Lanie Story MD at 19:08 EDT Tel , Service support , Dr. Valente, general surgery. Dr. Sung, infectious disease. Dr. Oates, hematology. Operations: None Procedures: None Summary of Care Provided: Patient seen and examined on the day of discharge and appeared to be stable to home. Abdominal pain started to improve and she has been tolerating full liquid diet. Cough and wheezing was improved. Her vital signs are stable and she has been afebrile. This is a 58 years old female patient presented to the emergency room with shortness of breath and productive cough as well as abdominal pain and she was found to have a right lower lobe healthcare associated pneumonia, recent history of ascending colitis still complaining of abdominal pain and also found to have neutropenia and leukopenia. #1 right lower lobe healthcare associated pneumonia: Initially treated with IV Rocephin and Zithromax but she does have healthcare associated pneumonia as she was admitted to the hospital for 4 days couple of weeks ago. Antibiotics switched to IV vancomycin and Zosyn and then narrowed down to IV Rocephin by infectious disease. Pneumococcal and Legionella antigen were negative. Respiratory panel for viruses was negative. Sputum culture revealed mixed normal respiratory orin. Patient was given couple of doses of IV steroids for significant wheezing. She had a history of childhood asthma and she is an ex-smoker but never been diagnosed with COPD which could be the underlying reason for her significant wheezing. With antibiotics and IV steroids as well as bronchodilators, patient symptoms improved and she did well. Patient discharged home on Omnicef to complete total of 7 days of treatment. #2 abdominal pain/recent history of ascending colitis: Patient had a recent colonoscopy that showed findings consistent with possible ischemic colitis of the ascending colon. CT scan abdomen and pelvis with IV contrast revealed no acute intra-abdominal pathology or changes. Previous CT scan abdomen reviewed with Dr. Valente. Colonic biopsy that was done around 2 weeks ago revealed fragments of ischemic mucosa. Was treated with IV fluids, IV pain medications and IV Zosyn. Her symptoms did improve and she tolerated full liquid diet. Patient's discharged home on a regular diet, plan to follow-up with general surgery and plan for repeat colonoscopy next week. #3 leukopenia/neutropenia: Unclear etiology. She is not on any medication that can cause leukopenia or neutropenia. Serum iron, ferritin and TIBC were normal. RBC folate and B12 were normal as well. HIV 1 and 2 antibodies were negative. Infection was seen by . screen was negative for hepatitis B surface antigen, hepatitis B core antibodies hepatitis 8 IgM antibodies and hepatitis C antibodies. Hematology consulted and plan to have the patient follow-up with them in the office after recovery. #4 left liver lobe lesion: This is an incidental finding on CT scan abdomen. Ultrasound liver done and revealed hemangioma. Patient discharged home in a stable medical condition, discharged on Omnicef for 3 days to complete total 7 days of treatment for pneumonia, discharged on prednisone 40 mg p.o. daily for 5 days 6 dose because of significant wheezing which could be due to underlying suspected COPD, discharged on OxyIR PRN for pain, only 10 tablets was given, plan to follow-up with Dr. Valente next week for repeat colonoscopy, follow-up with hematology in 2 to 3 weeks and recommended follow-up with PCP in 2 weeks. This note was generated with [employer]al[employer] dictation software. It may contain incorrect words, spelling, and punctuation that were not noted in checking the note before signing. Patient Problems: Active and Suspected Problems (Last Updated 12/09/18 @ 13:23 by Blayne Santana DO) Neutropenia (Acute) Anemia (Acute) Abnormal liver CT (Acute) - Physical Exam General: Alert, Oriented x3, Cooperative, No apparent distress HEENT: Atraumatic, PERRLA, EOMI, Normocephalic Oral: Moist Mucosa, No Gingival or Mucosal Lesions/ Ulcerations Neck: Supple, No JVD, Negative Carotid Bruits, Trachea Midline, Thyroid Normal Size and Texture Lungs: Clear to auscultation, Normal air movement, No rhonchi, No wheeze, No rales, Diminished Cardiovascular: Regular rate, Regular Rhythm, Normal S1, Normal S2, No murmurs Abdomen: Bowel Sounds Present, Soft, Non-Distended, No Hepato-splenomegaly, Tender - Minimal right lower quadrant tenderness. Extremities: No clubbing, No cyanosis, No edema Skin: No rashes, No breakdown Lymphatic: No Cervical, Supraclavicular, or Inguinal Adenopathy Neurological: Cranial nerves II-XII grossly intact, Neuro grossly intact Psych/Mental Status: Normal Affect, Appropriate Vital Signs Temp Pulse Resp BP Pulse Ox 98.7 F 103 H 16 142/77 H 92 12/26/18 08:50 12/26/18 08:50 12/26/18 08:50 12/26/18 08:50 12/26/18 08:50 Oxygen Flow Rate (L/min) 2 Oxygen Delivery Method Room Air Weight: 280 lb 13.903 oz Body Mass Index (BMI) 42.7 Intake and Output for Last 24 Hours 12/24/18 12/25/18 12/26/18 23:59 23:59 23:59 Intake Total 4635 / 4635 2611 / 2611 Balance 4635 / 4635 2611 / 2611 Microbiology Past 72 Hours 12/23/18 06:19 Gram Stain - Final Sputum, Expectorated/Coughed Respiratory Culture - Final 12/23/18 14:27 Stool Lactoferrin - Final Stool Enteric Bacteriology - Final Stool Occult Blood (MADELEINE) - Final Occult Blood Positive 12/22/18 22:12 Respiratory Panel (PCR) - Final Mucosa - Nose Laboratory Tests Past 24 Hrs 12/24/18 12/26/18 10:55 05:45 WBC 2.4 L RBC 3.89 L Hgb 11.5 L Hct 36.8 L MCV 94.6 MCH 29.6 MCHC 31.3 L RDW Std Deviation 53.9 H RDW Coeff of Jaun 15.5 H Plt Count 199 MPV 10.0 Immature Gran % (Auto) 0.400 Neut % (Auto) 79.4 H Lymph % (Auto) 16.5 L Hickman % (Auto) 3.7 Eos % (Auto) 0.0 Baso % (Auto) 0.0 Absolute Neuts (auto) Not Reportable Absolute Nucleated RBC 0.00 Nucleated RBC % 0 Differential Comment COMMENT Diff Path Review May foll EBV Capsid Ag IgG Ab 25.4 H EBV Capsid Ag IgM Ab < 36.0 EBV Early Antigen IgG <9.0 EBV Nuclear Ag IgG Ab < 18.0 EBV Antibody Interp Comment Discharge Activity: Return to Normal Activity, May not drive while taking narcotic pain medications. Weight Bearing Status: Full weight bearing Call your doctor if you observe: Fever of 101 or Higher, Shortness of breath, Dizziness, Fainting spells, Chest pain, Increased palpitations (irregular heartbeat), Uncontrolled pain Home Medications: Medications to take at Discharge Albuterol Inhaler [Ventolin Hfa] 1 - 2 puff INHALATION Q4H PRN PRN 12/09/18 Pantoprazole Sodium [Protonix] 40 mg PO DAILY 12/09/18 Rosuvastatin Calcium 40 mg PO QHS 12/09/18 Acetaminophen [Tylenol Tablet] 650 mg PO Q6H PRN PRN tab 12/13/18 Cefdinir [Omnicef [equiv]] 300 mg PO Q12H #6 cap 12/26/18 Oxycodone [Oxyir] 5 mg PO Q8H PRN PRN 3 Days #10 tab 12/26/18 Prednisone [Deltasone] 40 mg PO DAILY #10 tab 12/26/18 Temazepam [Restoril] 30 mg PO QHS PRN PRN #14 cap 12/26/18 Following Prescrptions Were Given to Patient: Prednisone [Deltasone] 40 mg PO DAILY #10 tab Transmission Status: Received by [facility] Cefdinir [Omnicef [equiv]] 300 mg PO Q12H #6 cap Transmission Status: Received by [facility] Oxycodone [Oxyir] 5 mg PO Q8H PRN PRN 3 Days #10 tab PRN Reason: Severe Pain (-03/13) Prescription Printed Temazepam [Restoril] 30 mg PO QHS PRN PRN #14 cap PRN Reason: Insomnia Prescription Printed Primary Care Physician: Karl Moran MD [Primary Care Provider] - Please follow up with your Primary Care Physician in: 2 weeks. Please Follow Up With: Rui Hernandez MD When: as per Dr. Valente Please Follow Up With: Yahaira Oates MD When: 2-3 weeks. Please Follow Up With: Karl Moran MD Disposition: Home Minutes spent on discharge:: 34 Patient Condition:: Stable Medical Necessity - Tobacco Use Smoking Status: Former smoker Meaningful Use Info Meaningful Use Diagnoses (Choose all that apply): None applicable Code Visit Inpatient E&M: 62130 Disch Hosp
[2018-12-26 13:56] LABS: Pathologist Review Reviewed
--- NOTE | 2018-12-27 15:10 | CASEMGMT ---
Addendum entered by Robin Justice 12/27/18 15:54: Pt returned call to unit. States she is still feeling tired, but no worsening symptoms. No questions re: instructions, has prescriptions and f/u appt is made. No care improvement suggestions were given. Curt WILLIAMSONM Original Note: RN CM DC PHONE CALL NOTE DC Date: 12/26/18 DC Disposition: Home on dc DC Diagnosis: Neutropenia Attempted call to home phone. 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 Curt WALTON RN ACM
== END 2018-12-26 12:24 | disposition home or self-care (01) | DRG 194 ==
LOC: ED 16:58 → PCU 19:01
PROVIDERS: Internal Medicine Infectious Disease; Admitting Provider Internal Medicine; Emergency Provider Emergency Medicine; Family Provider Family Medicine; PCP Family Medicine; Referring Provider Internal Medicine; Visit Provider Hospitalist
DX: J18.9 Pneumonia, unspecified organism (principal); Z68.41 Body mass index [BMI] 40.0-44.9, adult; Z99.81 Dependence on supplemental oxygen; Y95 Nosocomial condition; D18.03 Hemangioma of intra-abdominal structures; D70.9 Neutropenia, unspecified; D72.819 Decreased white blood cell count, unspecified; Z87.891 Personal history of nicotine dependence; E78.5 Hyperlipidemia, unspecified; J44.9 Chronic obstructive pulmonary disease, unspecified; R10.9 Unspecified abdominal pain; I10 Essential (primary) hypertension; K21.9 Gastro-esophageal reflux disease without esophagitis; E66.9 Obesity, unspecified
CPT/HCPCS: 36415; 71275; 74177; 76705; 80048; 80053; 80074; 81002; 82274; 82607; 82728; 82746; 83540; 83550; 83605; 83630; 84484; 85025; 86644; 86645; 86663; 86664; 86665; 86703; 87070; 87205; 87449; 87506; 87633; 87641; 93005; 94640; 94667; 94668; 99285; J7030; J7040; Q9967; A4216; J0696; J2405

== ENCOUNTER 2019-01-07 13:19 | Inpatient (IN) | payer OTHER, MEDICARE, SELFPAY ==
[2018-12-22 18:34] VITALS: BMI 42.7
[2019-01-07] VITALS (11 sets, daily range): BP systolic 85–99; BP diastolic 48–72; PULSE 77–104; RESP 16–19; TEMP 36.4–36.9; O2SAT 81–99; BMI 40.9; BMI 41.1
--- NOTE | 2019-01-07 10:05 | HP.PCM_ITS ---
History and Physical Date of Admission: 01/07/19 HISTORY AND PHYSICAL ? Shanda Felder 1960 ? REFERRING PHYSICIAN: ??Karl Moran, * ? CHIEF COMPLAINT:???Colitis ? HPI:??The patient is a 58 year old F with a complaint of episodic abdominal pain. ?She is noted relatively mild pain around the abdomen for some time. ?For the past 3 days, she noted increasing abdominal pain which she describes as diffuse around the outside of her abdomen but nonetheless are located in the center aspect of her abdomen. ?Due to these complaints she presented emergency department and was noted to be mildly hypoxic. ?She received IV fluids. ?A CT scan of the pelvis obtained which demonstrated colitis or thickening in the descending colon. ?The patient was given ciprofloxacin and Flagyl. ?She denies a previous history of colitis. ?Stool was checked and noted to be heme positive. ?I was contacted for endoscopy. ? the patient was referred for endoscopy in April. ?She saw Dr. Maldonado on April 05, 2018. ?she presented noting occasional nausea and vomiting episodically for 2 months. 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 ?She noted liquid stools usually 2 times per day. ?She also had abdominal cramping and diarrhea at socially inconvenient times. ?She was scheduled for upper and lower endoscopy that fell and had a leg fracture and had to cancel that procedure. ?She had been in usual state of intestinal health until the symptoms worsen over the last few days. ? The patient has a history of chronic renal failure. ?She concerns about dehydration. ?She is a former smoker who quit in 2009.she has undergone previous appendectomy, cholecystectomy. ?Vaginal hysterectomy and bilateral oophorectomy. ?She also noted worsening shortness of breath and was found to be quite hypoxic on admission. ?She will oxygen throughout the entire hospitalization. ?She u nderwent a CT angiogram to rule out pulmonary embolism on December 11, 2018. ?This demonstrated focal atelectasis versus infiltrate of the right lobe without other specific abnormalities. ? I saw her in consultation at [facility] on December 09, 2018. ?CT scan of the abdomen and pelvis was obtained which demonstrated ascending colon colitis. ?(Initial summary on CT scan stated descending colon but body of report stated ascending colon. ?Scan was reviewed and this was in fact ascending colon colitis) ? I performed upper and lower endoscopy on December 10, 2018. ?The patient was found to have mild gastritis and reflux esophagitis on upper endoscopy. ?Colonoscopy demonstrated diverticulosis in the sigmoid area. ?The sigmoid and descending colon and cecum were all normal. ?There was felt to be moderate inflammation found in the proximal ascending colon likely secondary to infectious colitis. ?Biopsies were obtained. ?The site was injected and a clip was placed to prove location. ?KUB demonstrated the clip to be in the mid ascending colon region. ? ? ? Pathology demonstrated: ? MICROSCOPIC DIAGNOSIS A. ?Antral biopsy: ?Mild gastritis. ?See microscopic description and comment. B. ?GE junction, biopsy: ?A fragment of gastroesophageal mucosa with chronic inflammation. ?Intestinal metaplasia (goblet cell metaplasia) is not identified. ?See comment. C. ?Ileocecal biopsy: ?A fragment of colonic mucosa, no pathologic diagnosis. D. ?Ischemic mass, biopsy: Fragments of colonic mucosa with extensive necrosis, acute inflammation most likely represents fragments of ulcerated mucosa.. ?No viable mucosa is noted in the specimen. E. ?Descending colon, biopsy: ?A fragment of colonic mucosa, no pathologic diagnosis. F. ?Sigmoid colon, biopsy: ?Fragments of colonic mucosa, no pathologic diagnosis. ? SJ:rg ?12/11/18 ? COMMENT A. ?The results of immunohistochemistry for Helicobacter pylori will be reported separately ([id number]). B. ?The specimen predominantly consists of gastric mucosa. Alcian blue/PAS stain with matched control is used in the evaluation of the specimen. ? D. ?If there is high suspicion of malignancy, rebiopsy is suggested if clinically indicated. Correlation with clinical, endoscopic findings and appropriate follow up are ne cessary. ? The patient was discharged from the hospital by the medicine service on ciprofloxacin and Flagyl on December 13, 2018. ? The patient notes continued complaints of shortness of breath requiring oxygen and continued right-sided abdominal pain complaints since the procedure. ? She saw her primary care physician, Dr. Bedoya who had her walk down the shah and noticed her oxygen saturation level dropped to 81%. ?He obtained laboratory studies which still demonstrated decreased white blood cell count with specific neutropenia. ?Hemoglobin and platelet count were normal. ?Her complete metabolic panel was unremarkable. ? No stool cultures were obtained while the patient was at [facility]. ?The patient also incidentally notes that her dog has had an unusual ear infection for the past 4 months. ?She wonders if this is somehow related. ?Denies blood in her stools. ?She notes that her bowel movements are coming somewhat more solid. ?Patient also notes multiple cold sores over the last few months. ? The patient was readmitted to [facility]. ?Imaging demonstrated right lower lobe pneumonia. ?She was started on antibiotics and was discharged to home. ?Repeat CT scan of the abdomen pelvis demonstrated improvement in the area of the right colon that previously. ?Thickened as marked with a clip. ?The patient was discharged home with plans for follow-up in my office to set up follow-up colonoscopy. ? ? PAST?MEDICAL?HISTORY PAST MEDICAL HISTORY Diagnosis Date ? Abdominal pain, right lower quadrant ? ? Acute gastritis without mention of hemorrhage ? ? Acute renal failure (HCC) 2011 2012 ? episodes of Cr elevation ? Anxiety ? ? Arthritis, multiple joint involvement ? ? Asthma ? ? DDD (degenerative disc disease), lumbar ? ? Depression with anxiety ? ? Diaphragmatic hernia without mention of obstruction or gangrene ? ? Dyspepsia and other specified disorders of function of stomach ? ? Esophagitis, unspecified ? ? Hyperlipidemia 11/28/2011 ? Hypertension ? ? Kidney disease ? ? GENNARO (obstructive sleep apnea) ? ? on CPAP ? Other and unspecified ovarian cyst ? ? Ovarian cyst ? Phlebitis and thrombophlebitis of unspecified site ? ? Tobacco use disorder ? ? Urinary calculus, unspecified ? ? Renal stones ? ? PAST?SURGICAL?HISTORY PAST SURGICAL HISTORY Procedure Laterality Date ? APPENDECTOMY ? ? ? COLONOSCOP W/ OR W/O [facility] SPEC ? 09/15/2005 [facility] ? Colonoscopy ? EGD W/O [facility] SPECIMEN W/BX ? 08/30/06 ? EGD W/O [facility] SPECIMEN W/BX ? 04/11/11 ? LAP CHOLECYSTECT/CHOLANGIOGRAPHY ? 08/30/06 ? OOPHORECTOMY, PART/TOTAL UNILAT/BILAT ? 2006 ? bilateral oophorectomy benign cysts, appendectomy ? PAST SURGICAL HISTORY OF ? 2000?, 2009 ? ruptured disc L3-L4 repair; fusion ? PAST SURGICAL HISTORY OF ? ? ? tendonectomy right elbow ? PAST SURGICAL HISTORY OF ? 2009 ? left MEAGAN ? PAST SURGICAL HISTORY OF ? 12/30/2014 ? right MEAGAN ? REPAIR UMBILICAL LAURA,5+Y/O,REDUC ? grade 6 ? Hernia repair, umbilical >5yr ? TONSILLECTOMY HX ? ? ? VAGINAL HYSTERECTOMY ? ? ? adenomysis ? ? CURRENT?MEDICATIONS ? Current Outpatient Medications: BIPAP ? pantoprazole DR (PROTONIX) 40 mg tablet Take 40 mg by mouth once daily. atorvastatin (LIPITOR) 40 mg tablet take 1 tablet at bedtime for cholesterol albuterol HFA (VENTOLIN HFA) 90 mcg/actuation inhaler Inhale 2 Puffs as instructed every 4 hours as needed for Wheezing/Shortness of Breath. MULTIVITAMIN (DAILY VITAMIN ORAL) Take 1 tablet by mouth once daily. oxyCODONE-acetaminophen (PERCOCET) 5-325 mg tablet Take 1 tablet by mouth every 4 hours as needed for up to 7 days. ondansetron (ZOFRAN) 4 mg tablet Take 1 tablet by mouth every 12 hours as needed for Nausea/Vomiting. peg 3350-Electrolytes (GOLYTELY) 236-22.74-6.74 -5.86 gram suspension Refer to printed patient instructions that will be mailed to you. (Patient not taking: Reported on 12/19/2018 ) sertraline (ZOLOFT) 100 mg tablet Take 2 tablets by mouth once daily. (Patient not taking: Reported on 12/19/2018 ) lisinopril (PRINIVIL) 10 mg tablet Take 1 tablet by mouth once daily. (Patient not taking: Reported on 12/19/2018 ) CPAP Mask (per patient preference) optional chin strap (if indicated) , filters, tubing, humidifier and lifetime supplies. ?Dx 327.23. ? No current facility-administered medications for this visit.? ? ALLERGIES:?Cat Hair Standardized Allergenic Extract; Dust; Penicillins; Percocet [Oxycodone-Acetaminophen]; Seasonal Allergies ? PERSONAL HISTORY:? SOCIAL?HISTORY Social History ??Socioeconomic History ?Marital status: ?Spouse name: Seth ?Number of children: 2 ?Years of education: Not on file ?Highest education level: Not on file ??Occupational History ?Not on file ??Social Needs ?Financial resource strain: Not on file ?Food insecurity: ?Worry: Not on file ?Inability: Not on file ?Transportation needs: ?Medical: Not on file ?Non-medical: Not on file ??Tobacco Use ?Smoking status: Former Smoker ?Packs/day: 0.10 ?Years: 20.00 ?Pack years: 2 ?Types: Cigarettes ?Start date: 12/15/2009 ?Smokeless tobacco: Never Used ?Tobacco comment: quit in 2009 ??Substance and Sexual Activity ?Alcohol use: No ?Alcohol/week: 2.5 - 5.0 standard drinks ?Types: 1 - 2 Glasses of Wine (5oz) per week ?Drug use: No ?Sexual activity: Not Currently ??Lifestyle ?Physical activity: ?Days per week: Not on file ?Minutes per session: Not on file ?Stress: Not on file ??Relationships ?Social connections: ?Talks on phone: Not on file ?Gets together: Not on file ?Attends anglican service: Not on file ?Active member of club or organization: Not on file ?Attends meetings of clubs or organizations: Not on file ?Relationship status: Not on file ?Intimate partner violence: ?Fear of current or ex partner: Not on file ?Emotionally abused: Not on file ?Physically abused: Not on file ?Forced sexual activity: Not on file ??Other Topics ?Concerns: ?Not on file ??Social History Narrative ?Not on file ? FAMILY HISTORY:? FAMILY?HISTORY FAMILY HISTORY Problem Relation Age of Onset ? Cancer Mother ?pancreatic ? Cancer Maternal Grandmother ?stomach ? Colon Cancer Paternal Grandmother ? ? Hypertension Father ? ? Colon Cancer Father 72 ? Stroke Paternal Grandfather ? ? REVIEW OF SYMPTOMS: ??The review of systems data was entered by the nurse and reviewed by me ? There are no exam notes on file for this visit. ? ? PHYSICAL EXAMINATION: ? General: ?The patient is 58 year old female, well nourished, well hydrated in no acute distress. ?The patient is oriented to time, place, and person. ? VITALS:?Blood pressure 112/74, pulse 96, temperature 36.1 ?C (97 ?F), resp. rate 16, weight 123 kg (271 lb 3.2 oz), SpO2 96 %.?Body mass index is 41.24 kg/m?.? ? HEENT: ?Normal cephalic, ataumatic, pupils are equally round, sclera are anicteric, mucous membranes are moist, oropharynx is clear. ?Neck has no masses, asymmetry or lymphadenopathy. ?Thyroid is unremarkable. ? Respiratory: ?Clear to auscultation and percussion. ?Normal respiratory excursion and pattern. ? Cardiac: ?Examination is regular rate and rhythm. ? Abdominal exam: ?Soft,?less but still persistent right sided abdominal tenderness, ?with no palpable masses. ?No hepatosplenomegaly. ?No palpable hernias. ? Rectal exam:?exam deferred ? Extremities: ?no clubbing, cyanosis or edema. ?No adenopathy. ? Other: ? LABORATORY VALUES: As Noted ? RADIOLOGIC STUDIES: ?As Noted ? Assessment ? IMPRESSION:?Right-sided colitis, slowly resolved, pneumonia, hypoxia ? PLAN: ?I plan to perform lower?endoscopy. ??We discussed the risks and benefits of the planned endoscopy. ?I have informed the patient that complications can occur including failure to complete the endoscopy and perforation. ?The patient had the opportunity to ask questions concerning the planned endoscopy. ?My staff has also explained the procedure to the patient in understandable terms and has given the patient printed material concerning the procedure. ?The patient freely consents to surgery. ? I plan to use golytely bowel preparation for endoscopy ? The patient has medical comorbidities for which I plan to perform the procedure under monitored anesthetic care. ? Diagnoses:?(J18.1) Pneumonia of right middle lobe due to infectious organism (HCC) ?(primary encounter diagnosis) (K52.9) Idiopathic colitis ? A letter was sent to Dr.?Karl Moran MD?indicating the above finding for this patient. ?? Return to Clinic: The patient is instructed to follow-up with me?after the testing has been completed. ? Rui Hernandez MD
--- NOTE | 2019-01-07 12:22 | RAD_ITS ---
STUDY: X-RAY CHEST REASON FOR EXAM: Female, 58 years old. Hypotension. TECHNIQUE: PA and lateral views of the chest. COMPARISON: Comparison is made with prior study dated December 09, 2018. FINDINGS: Mild elevation of the right hemidiaphragm. Increased linear markings in the right midlung as well as in the left lung base suggestive of bibasilar atelectasis. There is blunting of the right costophrenic angle. There is borderline cardiomegaly. Normal mediastinum and myriam. Normal visualized pulmonary arteries. There is atherosclerotic tortuosity of the aortic arch and descending thoracic aorta. There is a dextroscoliosis of the thoracic spine. Normal visualized ribs, clavicles, and shoulders. There is no demonstrated abnormality of the visualized soft tissue structures of the upper abdomen. RAD/Chest PA and Lateral IMPRESSION: Increased markings in the right mid lung as well as at the left lung base suggestive of atelectasis. Electronically Signed: Kamran Velazquez, at 13:31 EDT , Service support ,
[2019-01-07] MEDS: Ipratropium/Albuterol Sulfate 3 ML AMPUL.NEB INHALATION (12:48)
--- NOTE | 2019-01-07 13:11 | ECHOCS_ITS ---
Reason For Study: DYSPNEA/SOB Procedure This was a 2D Doppler, Color Flow transthoracic echocardiogram. The study was technically difficult. Due to body habitus, physicians speaking with patient. Contrast injection was performed. Exam performed in department. Left Ventricle Normal LV size. Based upon the 2D echocardiographic and contrast enhanced images obtained there appears to be grossly normal left ventricular size, wall motion, and systolic function. The estimated ejection fraction is 65 %. Transmitral doppler flow suggestive of impaired relaxation of left ventricle. Right Ventricle Moderately dilated right ventricle. Moderate global right ventricular systolic dysfunction. Atria Normal left atrium. Normal right atrium. No doppler evidence for ASD. Mitral Valve There is no mitral annular calcification. Normal mitral valve. Trivial mitral valve insufficiency. Tricuspid Valve Normal tricuspid valve. Trivial tricuspid valve insufficiency. Right ventricular systolic pressure estimated to be 33 mmHg. Aortic Valve Trisinus/trileaflet aortic valve. Mild focal aortic valve calcification. Pulmonic Valve The pulmonic valve is not well visualized. Trivial pulmonic valve insufficiency. Great Vessels Normal sized aortic root. Pericardium/Pleural No pericardial effusion. MMode/2D Measurements & Calculations LVIDd: 4.9 cm IVSd: 1.2 cm Ao root diam: 3.4 cm LVIDs: 3.4 cm LVPWd: 1.2 cm LA dimension: 3.5 cm RVDd: 3.8 cm FS: 31.5 % LAV(MOD-bp): 49.3 ml LA A4 area: 18.4 cm2 LA dimension(2D): 3.5 cm LAV(MOD-bp) Indexed: 21.3 ml/m2 LAV(MOD-sp2): 44.2 ml LAV(MOD-sp4): 47.9 ml RA A4 area: 14.0 cm2 Time Measurements MV dec time: 0.17 sec Doppler Measurements & Calculations MV E max juan: 85.8 cm/sec Lat Peak E' Juan: 9.7 cm/sec Med Peak E' Juan: 7.4 cm/sec MV A max juan: 96.7 cm/sec E/E' lat: 8.8 E/E' med: 11.6 MV E/A: 0.89 PA V2 max: 98.0 cm/sec TR max juan: 273.2 cm/sec TR max P.1 mmHg Interpretation Summary The study was technically difficult. Contrast injection was performed. Based upon the 2D echocardiographic and contrast enhanced images obtained there appears to be grossly normal left ventricular size, wall motion, and systolic function. The estimated ejection fraction is 65 %. Moderately dilated right ventricle. Moderate global right ventricular systolic dysfunction. Trivial mitral valve insufficiency. Trivial tricuspid valve insufficiency. Mild focal aortic valve calcification. Trivial pulmonic valve insufficiency. Right ventricular systolic pressure estimated to be 33 mmHg. Transmitral doppler flow suggestive of impaired relaxation of left ventricle Ordering Physician: Sam Padron Referring Physician: Karl Moran Performed By: Laura Alarcon RDCS, RVT
[2019-01-07 14:55] LABS: Absolute Lymphocyte Count 1.41 X10^3/uL (0.83-4.51); Absolute Neutrophil Count 2.4 X10^3/uL (2.0-7.7); Basophil# 0.01 X10^3/uL; Basophil% 0.2 % (0-1); Eosinophil# 0.09 X10^3/uL; Eosinophils% 2.1 % (0-5); Hematocrit 35.7 % (37-47); Hemoglobin 11.1 g/dL (12.0-15.0); Lymphocyte # 1.41 X10^3/ul (4.0); Lymphocyte % 32.9 % (19-41); Mean Corp Hgb Conc 31.1 g/dL (32-36); Mean Corpuscular Hgb 29.7 pg (27.0-32.0); Mean Corpuscular Volume 95.5 fL (81-99); Mean Platelet Vol. 10.5 fl (6.2-12.0); Monocyte# 0.39 X10^3/uL; Monocyte% 9.1 % (0-10); NRBC Flagged by Analyzer 0 % (0-5); Neutrophil # 2.36 X10^3/uL (2.7-7.7); Neutrophil % 55.2 % (47-70); Platelet Count 121 K/mm3 (150-450); RBC Distribution Width CV 15.9 % (11.6-14.6); RBC Distribution Width SD 55.5 fl (35.1-43.9); Red Blood Count 3.74 M/mm3 (4.2-5.4); White Blood Count 4.3 K/mm3 (4.4-11.0)
[2019-01-07 15:20] LABS: ALB/GLOB Ratio 1.3 RATIO (0.9-2.4); AST(SGOT) 27 U/L (15-37); Alanine Aminotransfer ALT/SGPT 27 U/L (13-56); Albumin, Serum 3.4 g/dL (3.2-5.0); Alkaline Phosphatase 79 U/L (45-117); Anion Gap 11 (5-15); BUN 39 mg/dL (7-18); BUN/Creat Ratio 5.3 RATIO (10-20); Calcium,Total 8.3 mg/dL (8.5-10.1); Chloride 105 mmol/L (98-107); Creatinine, Serum 7.42 mg/dL (0.55-1.02); EST Glomerular Filtration Rate 6 mL/min (>60); Est Glom Filt Rate - Afr Amer 7 mL/min (>60); Estimated Creatinine Clearance 8.44 ml/min; Globulin 2.6 g/dL (2.2-4.2); Glucose 84 mg/dL (74-106); Potassium 4.3 mmol/L (3.5-5.1); Sodium Level 139 mmol/L (136-145)
--- NOTE | 2019-01-07 15:28 | CON.PCM_ITS ---
Problem List (1) Gastroesophageal reflux disease Status: Chronic (2) Hypertension Status: Chronic Qualifiers: Hypertension type: essential hypertension Qualified Code(s): I10 - Essential (primary) hypertension (3) Colitis with rectal bleeding Status: Chronic (4) Respiratory insufficiency Status: Acute (5) Neutropenia Status: Acute Qualifiers: Neutropenia type: unspecified Qualified Code(s): D70.9 - Neutropenia, unspecified (6) Anemia Status: Acute Qualifiers: Anemia type: unspecified type Qualified Code(s): D64.9 - Anemia, unspecified (7) Abnormal liver CT Status: Acute Reason for Consult Date of Consultation: 01/07/19 Reason for Consultation: Hypoxia History of Present Illness: The patient is a 58 year old F, with past medical history listed below, who presented to [facility] on 01/07/2019 secondary to an elective colonoscopy. Patient reportedly had had episodic abdominal pain since April. Patient has had occasional nausea and vomiting and has a history of peptic ul cers in the past. Patient reportedly had a small piece of bowel noted in early December consistent with colitis. Biopsies performed at that time could not rule out malignancy, so patient was scheduled for a repeat colonoscopy today. On arrival, patient was noted to be hypoxic, which is a new finding, so patient was admitted to the hospital for further evaluation. Patient reports that she is symptomatically improved since being admitted to the hospital. Patient does report that she is relatively comfortable when she is sitting still, but noted that she was 70% upon waking this morning. Patient does have obstructive sleep apnea and is treated with BiPAP therapy. Patient states that she woke up this morning and checked her saturations to find her in the 70s. Patient placed herself on nasal cannula oxygen with good improvement. On presentation for the colonoscopy, patient was noted to be 81% on room air. Patient denies any history of previous oxygen requirements. During last hospita lization, patient did have an acute onset of shortness of breath and chest pain. Patient was placed on supplemental oxygen and states I know I had a PE with a you can find it or not. Patient did have a CTA, VQ and lower extremity Dopplers that were all negative at that time. Patient was discharged off of supplemental oxygen at that time. Patient does report a remote history of smoking. Patient has never had a pulmonary function test previously. Patient does state that she had a polysomnogram approximate 1 year ago, but reports a 10% weight gain since that time. Patient is unclear if she snores to her mask. Patient does not use any inhalers at baseline. Patient has not been on prednisone. Patient does report having a dog and cat at home. Patient has had birds in the past, but denies any exposure to bats. 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 Patient does report some decreased urine output today, but had attributed this to her n.p.o. status. Patient does suffer from anxiety and depression. Patient is currently disabled. Patient did report significant lower extremity edema following her last hospitalization, but this has improved with time. Patient has never had an echocardiogram that she is aware of. Review of systems otherwise negative x10 systems. Past Medical History Past Medical History (Chronic Problems): Chronic Problems (Last Updated 12/09/18 @ 13:23 by Blayne Santana DO) Gastroesophageal reflux disease (Chronic) Hypertension (Chronic) Colitis with rectal bleeding (Chronic) Medical History: Medical History (Last Updated 12/09/18 @ 13:23 by Blayne Santana DO) Anxiety F41.9 Arthritis M19.90 History of diarrhea Z87.898 History of umbilical hernia Z87.19 Hypertension I10 Allergies Penicillins Allergy (Verified 12/22/18 13:21) Unknown DUST Allergy (Uncoded 12/22/18 13:21) Unknown SEASONAL Allergy (Uncoded 12/22/18 13:21) Unknown Home Medications: Ambulatory Orders Medication Instructions Recorded Albuterol Inhaler [Ventolin Hfa] 1 - 2 puff INHALATION Q4H PRN PRN 12/09/18 Pantoprazole Sodium [Protonix] 40 mg PO DAILY 12/09/18 Rosuvastatin Calcium 40 mg PO QHS 12/09/18 Acetaminophen [Tylenol Tablet] 650 mg PO Q6H PRN PRN tab 12/13/18 Temazepam [Restoril] 30 mg PO QHS PRN PRN #14 cap 12/26/18 Surgical History: Surgical History (Last Updated 05/03/18 @ 09:04 by Corrie Ho) History of appendectomy Z90.49 History of cholecystectomy Z90.49 History of hysterectomy Z90.710 History of tubal ligation Z98.51 Surgical History: adenoidectomy, appendectomy, cholecystectomy, herniorrhaphy, hysterectomy Smoking Status: Former smoker - *Family History Maternal History Items: - Review of Systems Comment: See HPI Objective: All imaging was personally reviewed. CT scan from last hospitalization did show an area of atelectasis. Patient also had peribronchial cuffing and bronchiectasis noted mild emphysematous changes are noted. No mediastinal lymphadenopathy was appreciated. Patient has never had an echocardiogram or complete PFT. Sleep study (06/29/2017): Total AHI of 83.7 arousals per hour and spent over 200 minutes with desaturation. Patient was titrated to BiPAP 18/12 centimeters of water. - Physical Exam General: Alert, Oriented x3, Cooperative, - - Very anxious. Morbidly obese. HEENT: Atraumatic, PERRLA, EOMI, Normocephalic, - - Scleral injection without icterus Oral: Moist Mucosa, No Gingival or Mucosal Lesions/ Ulcerations Neck: Supple, No JVD, No Nodes, Trachea Midline Lungs: No rhonchi, No rales, Diminished, Wheezes Cardiovascular: Normal S1, Normal S2, No murmurs, No rub noted, No Gallop, Tachycardic Abdomen: Bowel Sounds Present, Soft, Non Tender, Non-Distended, Obese Extremities: No clubbing, No cyanosis, No edema, Capillary Refill Less than 3 Seconds Skin: No rashes, No breakdown Musculoskeletal: No Tenderness to Palpation of Joints or Extremities Lymphatic: No Cervical, Supraclavicular, or Inguinal Adenopathy Neurological: Cranial nerves II-XII grossly intact, Neuro grossly intact, Motor Exam 5/5 strength throughout Psych/Mental Status: Anxious, Restless Vital Signs Temp Pulse Resp BP Pulse Ox 36.4 C L 98 16 96/72 98 01/07/19 15:01 01/07/19 15:01 01/07/19 15:01 01/07/19 15:01 01/07/19 15:01 Oxygen Flow Rate (L/min) 2 Oxygen Delivery Method Nasal Cannula Weight: 122.7 kg Body Mass Index (BMI) 41.1 Laboratory Tests Past 24 Hrs 01/07/19 01/07/19 14:43 14:43 WBC 4.3 L RBC 3.74 L Hgb 11.1 L Hct 35.7 L MCV 95.5 MCH 29.7 MCHC 31.1 L RDW Std Deviation 55.5 H RDW Coeff of Jaun 15.9 H Plt Count 121 L MPV 10.5 Immature Gran % (Auto) 0.500 Neut % (Auto) 55.2 Lymph % (Auto) 32.9 [place] % (Auto) 9.1 Eos % (Auto) 2.1 Baso % (Auto) 0.2 Absolute Neuts (auto) 2.4 Absolute Lymphs (auto) 1.41 Nucleated RBC % 0 Sodium 139 Potassium 4.3 Chloride 105 Carbon Dioxide 23.0 Anion Gap 11 BUN 39 H Creatinine 7.42 H* Estim Creat Clear Calc 8.44 Est GFR (MDRD) Af Amer 7 L Est GFR (MDRD) Non-Af 6 L BUN/Creatinine Ratio 5.3 L Glucose 84 Calcium 8.3 L Total Bilirubin 1.30 H AST 27 ALT 27 Alkaline Phosphatase 79 Total Protein 6.0 L Albumin 3.4 Globulin 2.6 Albumin/Globulin Ratio 1.3 Clinical Impression(s) from Imaging Studies Chest X-Ray 01/07/19 12:22 IMPRESSION: Increased markings in the right mid lung as well as at the left lung base suggestive of atelectasis. Electronically Signed: Kamran Velazquez, at 13:31 EDT , Service support , Assessment/Plan All Active Problems (Last Updated 12/09/18 @ 13:23 by Blayne Santana DO) Respiratory failure with hypoxia (Acute) Respiratory insufficiency (Acute) Sepsis (Acute) Neutropenia (Acute) Anemia (Acute) Abnormal liver CT (Acute) RECOMMENDATIONS: 1. Obtain room air ABG 2. Initiate Acapella therapy 3. Wean oxygen as tolerated 4. Obtain echocardiogram 5. Initiate IV fluids and repeat renal function studies tomorrow 6. Continuous pulse ox, AVAPS overnight if desaturating 7. Outpatient complete PFT 8. Walking oximetry prior to discharge IMPRESSIONS: 1. Hypoxemia Unclear etiology at this time. Patient does have some bronchiectasis noted on CT scan of the chest, but not enough atelectasis or mucous plugging to explain low saturations. Would recommend a room air ABG for evaluation of obesity hypoventilation syndrome. Patient did have an extensive work-up for PE in the past. Would obtain an echocardiogram for evaluation of pulmonary hypertension versus shunt, so bubble should be used. Patient does not have significant lower extremity edema at this time, but congestive heart failure would be a consideration. 2. Obstructive sleep apnea Patient with severe obstructive sleep apnea and desaturation on sleep study. Unclear if patient is persisting and hypoxemia overnight. Patient should continue on continuous pulse ox. If patient has significant desaturations while on home BiPAP, she could be transition to AVAPS with titration of oxygen appropriately. Continued desaturations would lead to the development of pulmonary hypertension, but echo has been ordered. 3. Bronchiectasis New diagnosis. Patient does not appear to have significant mucus plugging at this time. Could initiate Acapella therapy. Patient does have some wheezing on exam and may benefit from empiric bronchodilator therapy. Unclear if patient truly requires steroid therapy. Patient should have a complete pulmonary function test as an outpatient. 4. Acute renal failure Possible prerenal etiology, but BUN/creatinine ratio was not suggestive. Nephrology has been consulted. Await recommendations. Would attempt IV hydration as patient was prepped for colonoscopy. 5. Leukopenia/recent colitis/morbid obesity/liver hemangioma/anxiety/depression/history of smoking Complicates care, management, recovery and prognosis. Code Visit Inpatient E&M: 14073 Init Hosp L3
[2019-01-07 15:31] LABS: Base Excess -6 mmol/L (-2 to +2); Bicarbonate 20.4 mmol/L (22-26); Blood Gas Specimen Type ART; O2 Delivery Device Room Air; PO2 75 mmHG (75-100); SITE L Brachial; SO2 93 % (95-99); Time Given 1500; Total Carbon Dioxide 22 mmol/L; pCO2 41.9 mmHg (35-45)
--- NOTE | 2019-01-07 15:45 | CON.PCM_ITS ---
Consultation - Renal 01/07/19 PCP/ Referring MD: Requesting physician: Rekha Ivory DO Primary care physician: Karl Moran MD Reason for Consultation:: PEDRO - History of Present Illness History of Present Illness: The patient is a 58 year old obese F was scheduled for follow-up colonoscopy after hospitalization early December for GI bleed from colitis. She was discovered to be hypoxic with low blood pressures during her assessment prior to her colonoscopy today. She has had a history of chronic loose stools more so past 2 days while on colon prep. She complains of right lower quadrant abdominal pain, denies any melena or hematochezia. She has been on oxygen since discharge from the hospital in December for pneumonia. She thought she had a blood clot in her lung but CTA in December was unremarkable for PE. She continues to cough with brown/green sputum. She denied any fever or chills. Consulted for acute renal failure. Creatinine was 7.4 today. Creatinine was 0.83 during her hospitalization in December 2018. She denied any change in her urine output. Denied any dysuria or hematuria. She did notice left flank pain past 4 days. She has a remote history of kidney stones. She received IV fluids with LR. She has been on Aleve twice a day chronically for joint pain bilateral hips and back pain with history of [address] of the abdomen in December 2018 showed midpole right renal cyst but otherwise unremarkable.She denies starting any new medications other than the colon prep. Denies diuretic use. No skin rash, swelling. She has no history of diabetes or heart disease. Denied c hest pain, syncope. She did have a near syncopal episode with shortness of breath in December when she was diagnosed with RLL pneumonia. ? I ? ? - Allergies Allergies: Allergies Penicillins Allergy (Verified 12/22/18 13:21) Unknown DUST Allergy (Uncoded 12/22/18 13:21) Unknown SEASONAL Allergy (Uncoded 12/22/18 13:21) Unknown - Current Medications Current Medications: Current Medications Acetaminophen (Tylenol) 650 mg PO Q6H PRN PRN PRN Reason: Mild Pain (1-3)/Temp > 100.7 F Albuterol Sulfate (Ventolin Aerosols) 2.5 mg INHALATION Q4H PRN PRN PRN Reason: SHORTNESS OF BREATH Atorvastatin Calcium (Lipitor) 80 mg PO QHS NINA Lactated Ringer's () 1,000 mls @ 60 mls/hr IV .[id number] NINA Pantoprazole Sodium (Protonix) 40 mg PO DAILY NINA Sodium Chloride () 10 - 40 ml IV UD PRN PRN Reason: SALINE FLUSH Temazepam (Restoril) 30 mg PO QHS PRN PRN Reason: INSOMNIA - Past Medical History Past Medical History (Chronic Problems): Chronic Problems (Last Reviewed 01/07/19 @ 18:25 by Bridgette Ivory DO) Gastroesophageal reflux disease (Chronic) Hypertension (Chronic) Colitis with rectal bleeding (Chronic) Abnormal liver CT (Chronic) hemangioma Leukopenia (Chronic) Bronchiectasis (Chronic) HLD (hyperlipidemia) (Chronic) Morbid obesity (Chronic) - Past Surgical History Surgical History: adenoidectomy, appendectomy, cholecystectomy, herniorrhaphy, hysterectomy, - - Back surgery x2 - Social History Marital Status: Smoking Status: Former smoker - Family History Maternal History Items: - Paternal History Items: Hypertension Review of Systems Constitutional: Denies: Anorexia, Chills, Fever, Weakness Eyes: Denies: Vision Change HEENT: Denies: Head Aches Cardiovascular: Denies: Chest Pain, Edema, Syncope Respiratory: Reports: Cough, Shortness of breath upon exertion Gastrointestinal: Reports: Abdominal Pain - Right lower quadrant, Diarrhea, - - History of colitis with GI bleed. Denies: Hematemesis, Hematochezia, Nausea, Melena, Vomiting Musculoskeletal: Reports: Back Pain, - - DJD hips bilaterally. Denies: Arm Pain, Joint swelling Skin: Denies: Rash Psychiatric: Reports: Anxiety, Depression Hematologic/ Lymphatic: Reports: Anemia. Denies: Hx of blood clot Patient Problems: Active and Suspected Problems (Last Reviewed 01/07/19 @ 18:25 by Bridgette Ivory DO) Thrombocytopenia (Acute) Metabolic acidosis (Acute) ARF (acute renal failure) (Acute) Hyperphosphatemia (Acute) Idiopathic right ventricular dilation (Acute) Hypotension (Acute) COPD (chronic obstructive pulmonary disease) (Suspected) - Physical Exam General: Alert, Oriented x3, Cooperative, No apparent distress, - - Tearful HEENT: PERRLA, EOMI Oral: Moist Mucosa Neck: Supple Lungs: Clear to auscultation Cardiovascular: Regular rate, No rub noted Abdomen: Bowel Sounds Present, Soft, Non-Distended, Obese, Tender - Right lower quadrant, - - No flank pain Extremities: No edema Musculoskeletal: No Muscle Wasting Neurological: Cranial nerves II-XII grossly intact, - - no tremor Psych/Mental Status: Anxious, Alert and oriented to time, place, person, mood and affect Vital Signs Temp Pulse Resp BP Pulse Ox 97.5 F L 98 16 96/72 98 01/07/19 15:01 01/07/19 15:01 01/07/19 15:01 01/07/19 15:01 01/07/19 15:01 Oxygen Flow Rate (L/min) 2 Oxygen Delivery Method Nasal Cannula Weight: 122.7 kg Body Mass Index (BMI) 41.1 Laboratory Tests Past 24 Hrs 01/07/19 01/07/19 01/07/19 14:43 14:43 14:43 WBC 4.3 L RBC 3.74 L Hgb 11.1 L Hct 35.7 L MCV 95.5 MCH 29.7 MCHC 31.1 L RDW Std Deviation 55.5 H RDW Coeff of Jaun 15.9 H Plt Count 121 L MPV 10.5 Immature Gran % (Auto) 0.500 Neut % (Auto) 55.2 Lymph % (Auto) 32.9 [place] % (Auto) 9.1 Eos % (Auto) 2.1 Baso % (Auto) 0.2 Absolute Neuts (auto) 2.4 Absolute Lymphs (auto) 1.41 Nucleated RBC % 0 ESR PT INR APTT Specimen Type Sample Site pH Bicarbonate Actual POC Total CO2 Base Excess O2 Saturation ABG pCO2 ABG pO2 Arian Test O2 Delivery Device Blood Gas Notified Whom Blood Gas Notified Time Sodium 139 Potassium 4.3 Chloride 105 Carbon Dioxide 23.0 Anion Gap 11 BUN 39 H Creatinine 7.42 H* Estim Creat Clear Calc 8.44 Est GFR (MDRD) Af Amer 7 L Est GFR (MDRD) Non-Af 6 L BUN/Creatinine Ratio 5.3 L Glucose 84 Calcium 8.3 L Phosphorus Pending Magnesium Pending Total Bilirubin 1.30 H AST 27 ALT 27 Alkaline Phosphatase 79 C-React Prot Ext Range Pending Total Protein 6.0 L Albumin 3.4 Globulin 2.6 Albumin/Globulin Ratio 1.3 Rheumatoid Factor Pending 01/07/19 01/07/19 01/07/19 14:43 14:43 15:24 WBC RBC Hgb Hct MCV MCH MCHC RDW Std Deviation RDW Coeff of Jaun Plt Count MPV Immature Gran % (Auto) Neut % (Auto) Lymph % (Auto) [place] % (Auto) Eos % (Auto) Baso % (Auto) Absolute Neuts (auto) Absolute Lymphs (auto) Nucleated RBC % ESR Pending PT Pending INR Pending APTT Pending Specimen Type ART Sample Site L Brachial pH 7.30 L Bicarbonate Actual 20.4 L POC Total CO2 22 Base Excess -6 L O2 Saturation 93 L ABG pCO2 41.9 ABG pO2 75 Arian Test NA O2 Delivery Device Room Air Blood Gas Notified Whom HOSP Blood Gas Notified Time 1500 Sodium Potassium Chloride Carbon Dioxide Anion Gap BUN Creatinine Estim Creat Clear Calc Est GFR (MDRD) Af Amer Est GFR (MDRD) Non-Af BUN/Creatinine Ratio Glucose Calcium Phosphorus Magnesium Total Bilirubin AST ALT Alkaline Phosphatase C-React Prot Ext Range Total Protein Albumin Globulin Albumin/Globulin Ratio Rheumatoid Factor Clinical Impression(s) from Imaging Studies Chest X-Ray 01/07/19 12:22 IMPRESSION: Increased markings in the right mid lung as well as at the left lung base suggestive of atelectasis. Electronically Signed: Kamran Velazquez, at 13:31 EDT , Service support , Assessment/Plan All Active Problems (Last Reviewed 01/07/19 @ 18:25 by Bridgette Ivory, DO) Respiratory failure with hypoxia (Ruled-out) Respiratory insufficiency (Acute) Anemia (Acute) Thrombocytopenia (Acute) Metabolic acidosis (Acute) ARF (acute renal failure) (Acute) Hyperphosphatemia (Acute) Idiopathic right ventricular dilation (Acute) Hypotension (Acute) Sepsis (Resolved) 1. Acute kidney injury unclear etiology suspect prerenal event from hypotension, chronic diarrhea with history of daily NSAID use with Aleve twice a day for chronic pain. Hold on NSAID use. Recommend IV resuscitation for hypotension. Check spot urine sodium and creatinine, UA for protein & blood, kidney ultrasound to rule out urinary retention or kidney stones. Creatinine 7.42 on admission from baseline 0.83 on 12/23/18 2. Left flank pain with a remote history of kidney stones check kidney ultrasound. 3. Hypotension fluid resuscitation. 4. History of GI bleed with colitis treated with antibiotic therapy. Colonoscopy scheduled for today canceled due to hypoxemia and hypotension and renal failure. 5. History of pneumonia in December 2018 right lower lobe with continued cough with productive sputum green to brown in color. Afebrile with no leukocytosis. Pulmonary consulted. Discussed with primary service. Thank you, will follow pt care with you.
[2019-01-07 15:47] LABS: International Normalized Ratio 1.1; Prothrombin Time (Protime)PT. 13.7 SECONDS (11.7-14.9)
[2019-01-07 15:48] LABS: Partial Thromboplast Time 26.7 Seconds (24.1-36.2)
[2019-01-07 16:04] LABS: CRP 7.38 mg/L (0.0-3.0); Magnesium 1.7 mg/dL (1.6-2.6); Phosphorus 5.9 mg/dL (2.5-4.9); Rheumatoid Factor < 10.0 IU/mL (<15)
[2019-01-07 16:05] LABS: Erythrocyte Sedimentation Rate 8 mm/hr (0-30)
--- NOTE | 2019-01-07 16:05 | US_ITS ---
STUDY: RENAL ULTRASOUND - COMPLETE REASON FOR EXAM: Female, 58 years old. ARF TECHNIQUE: Ultrasound evaluation of the kidneys was performed with real-time and static bee-scale imaging. COMPARISON: CT dated December 21, 2018 FINDINGS: RIGHT KIDNEY: Normal location of the right kidney, which is normal in size. The right kidney measures 11.9 cm in length. There is a normal cortex of the right kidneyThere is no right renal mass or cyst. There are no right renal calculi. There is no right hydronephrosis. DISTAL RIGHT URETER: There is no demonstrated right ureteral jet. LEFT KIDNEY: Normal location of the left kidney, which is normal in size. The left kidney measures 11.6 cm in length. There is a normal cortex of the left kidney. There is no left renal mass or cyst. There are no left renal calculi. There is no left hydronephrosis. DISTAL LEFT URETER: There is a visualized left ureteral jet. BLADDER: The urinary bladder is incompletely distended and has a volume of 51.01 millimeter. There is a normal wall thickness of the urinary bladder. There is no demonstrated mass within the urinary bladder. There are no demonstrated bladder calculi. US/Kidney and Bladder IMPRESSION: Within normal limits ultrasound of the kidneys and urinary bladder. Electronically Signed: Laine Botello MD at 17:14 EDT Tel , Service support ,
[2019-01-07 16:28] LABS: Osmolality, Serum 297 mOsm/KG (275-295)
[2019-01-07] MEDS: 0.9% Normal Saline 1,000 ML 150 ML IV ×2 (17:23→22:25)
[2019-01-07] MEDS: proCHLORPERazine 10 MG/2 ML Vial 5 MG IV (17:33)
[2019-01-07] MEDS: fentaNYL 100 MCG/2 ML Ampul 25 MCG IV ×3 (17:34→22:52)
--- NOTE | 2019-01-07 17:38 | PCM.CONS.GEN ---
Problem List (1) Leukopenia Status: Chronic (2) Thrombocytopenia Status: Acute (3) Metabolic acidosis Status: Acute (4) ARF (acute renal failure) Status: Acute (5) Hyperphosphatemia Status: Acute (6) Idiopathic right ventricular dilation Status: Acute (7) Bronchiectasis Status: Chronic (8) HLD (hyperlipidemia) Status: Chronic (9) Gastroesophageal reflux disease Status: Chronic (10) Hypertension Status: Chronic Qualifiers: Hypertension type: essential hypertension Qualified Code(s): I10 - Essential (primary) hypertension (11) Colitis with rectal bleeding Status: Chronic (12) Respiratory failure with hypoxia Status: Ruled-out (13) Respiratory insufficiency Status: Acute (14) Sepsis Status: Resolved (15) Anemia Status: Acute Qualifiers: Anemia type: unspecified type Qualified Code(s): D64.9 - Anemia, unspecified (16) Abnormal liver CT Status: Chronic Comment: hemangioma (17) Morbid obesity Status: Chronic (18) Hypotension Status: Acute (19) COPD (chronic obstructive pulmonary disease) Status: Suspected Reason for Consult Date of Consultation: 01/07/19 Reason for Consultation: hypoxemia, low blood pressure History of Present Illness: The patient is a 58 year old F with a past medical history of hypertension, morbid obesity, hyperlipidemia, obstructive sleep apnea on BIPAP, gastroesophageal reflux disease, liver hemangioma, recent admission for ulcerative colitis right colon suspected to be secondary to ischemic colitis who was to have an OP colonoscopy today with Dr. Hernandez to re-evaulate the R colon since she continues to c/o severe pain. In complex care nurse practitioner she was noted to have a pulse ox of 81% on RA and was hypotensive. She completed a Golytely prep prior to prepare for the colonoscopy today. When she was discharged from the hospital in December she was not on oxygen. Now she is wearing O2 at 3 LPM 24 H a day. She states she wears her CPAP every night and when she got up this AM her pulse ox was 70%. She had her last sleep study at [facility] in June of 2017 and at that time she weighed 258 lbs. BIPAP 18/12 was recommended. Her current weight is 270 pounds and 8 oz. She had a suboptimal CTA of the chest in December and it was negative for PE within the limits of the study. She denies any hx of heart problems. She has never had PFT's and she used to smoke but quit in 2004. Per Dr. Padron's review of the previous CTA of the chest she has bronchiectasis. An ABG done on RA today showed a pH of 7.30, PCO2 of 41.9 and a PO2 of 75. The AA gradient is 24.4 which is elevated. She denied any CP. She also denied lightheadedness. She has no nausea. She is very anxious, tearful and emotionally labile at present. A chest x-ray shows increased markings in the right midlung as well as the left lung base suggestive of atelectasis. There are no infiltrates, pleural effusions or significant pulmonary vascular congestion. Labs shows a white blood cell count of 4.3 with an unremarkable differential. The hemoglobin is 11.1 with normochromic normocytic indices and the platelets are 121,000. PT and PTT are within normal limits. ESR is normal at 8. BMP is remarkable for a BUN of 39 with a creatinine of 7.42, up from 0.83 on 12/23/2018. She denies any recent change in medications. Serum osmolality is 297. Total bilirubin is mildly increased at 1.3 but the other LFTs are within normal limits. CRP is 7.38. Albumin is 3.4. Rheumatoid factor is less than 10. She denies any family history of connective tissue diseases. Renal ultrasound shows normal kidneys and bladder with no hydronephrosis. Echocardiogram shows a normal EF of 65% with no wall motion abnormalities. The right ventricle is moderately dilated and has moderate global right ventricular systolic dysfunction. There is trivial mitral valve insufficiency and trivial tricuspid valve insufficiency. The right ventricular systolic pressure was estimated to be 33. There was a suggestion of impaired relaxation of the left ventricle. Consult has been ordered with Dr. Padron and with Dr. Winkler. Past Medical History Past Medical History (Chronic Problems): Chronic Problems (Last Reviewed 01/07/19 @ 18:25 by Bridgette Ivory DO) Gastroesophageal reflux disease (Chronic) Hypertension (Chronic) Colitis with rectal bleeding (Chronic) Abnormal liver CT (Chronic) hemangioma Leukopenia (Chronic) Bronchiectasis (Chronic) HLD (hyperlipidemia) (Chronic) Morbid obesity (Chronic) Medical History: Medical History (Last Reviewed 01/07/19 @ 18:25 by Bridgette Ivory DO) Anxiety F41.9 Arthritis M19.90 History of diarrhea Z87.898 History of umbilical hernia Z87.19 Hypertension I10 Allergies Penicillins Allergy (Verified 12/22/18 13:21) Unknown DUST Allergy (Uncoded 12/22/18 13:21) Unknown SEASONAL Allergy (Uncoded 12/22/18 13:21) Unknown Home Medications: Ambulatory Orders Medication Instructions Recorded Albuterol Inhaler [Ventolin Hfa] 1 - 2 puff INHALATION Q4H PRN PRN 12/09/18 Pantoprazole Sodium [Protonix] 40 mg PO DAILY 12/09/18 Rosuvastatin Calcium 40 mg PO QHS 12/09/18 Acetaminophen [Tylenol Tablet] 650 mg PO Q6H PRN PRN tab 12/13/18 Temazepam [Restoril] 30 mg PO QHS PRN PRN #14 cap 12/26/18 Surgical History: Surgical History (Last Reviewed 01/07/19 @ 18:26 by Bridgette Ivory DO) History of appendectomy Z90.49 History of cholecystectomy Z90.49 History of hysterectomy Z90.710 History of tubal ligation Z98.51 Surgical History: adenoidectomy, appendectomy, cholecystectomy, herniorrhaphy, hysterectomy, - - Back surgery x2 Psychiatric History: 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 Denies: Cough, Sputum production Gastrointestinal: Reports: Abdominal Pain, Nausea. Denies: Hematemesis, Hematochezia, Vomiting Genitourinary: Denies: Dysuria, Frequency, Hesitancy, Incontinence Musculoskeletal: Denies: Joint Pain, Joint Tenderness Skin: Denies: Jaundice, Rash, Wounds Neurological: Denies: Focal weakness, Numbness, Tingling, Seizures Psychiatric: Denies: Anxiety, Depression, Homicidal Ideations, Suicidal Ideations Hematologic/ Lymphatic: Reports: Hx of blood clot - superficial clots after a surgery in the past. Denies: Easy Bruising, Easy Bleeding Patient Problems: Active and Suspected Problems (Last Reviewed 01/07/19 @ 18:25 by Bridgette Ivory DO) Thrombocytopenia (Acute) Metabolic acidosis (Acute) ARF (acute renal failure) (Acute) Hyperphosphatemia (Acute) Idiopathic right ventricular dilation (Acute) Hypotension (Acute) COPD (chronic obstructive pulmonary disease) (Suspected) - Physical Exam General: Alert, Oriented x3, Well developed, Well nourished HEENT: Atraumatic, PERRLA, EOMI, Normocephalic Oral: Dry Mucosa Neck: Supple, Negative Carotid Bruits, Trachea Midline Lungs: No rales, Diminished, Wheezes - inspiratory wheeze in the bases BL Cardiovascular: Regular rate, Regular Rhythm, Normal S1, Normal S2, No murmurs, No rub noted, No Gallop Abdomen: Soft, Non-Distended, Hypoactive Bowel Sounds, Obese, Tender - R abdomen, no masses appreciated Extremities: No clubbing, No cyanosis, No edema, No Calf Tenderness, Peripheral Pulses Normal Skin: No rashes Musculoskeletal: No Muscle Wasting Neurological: Cranial nerves II-XII grossly intact, Neuro grossly intact Psych/Mental Status: Anxious - tearful, obviously very upset Vital Signs Temp Pulse Resp BP Pulse Ox 97.5 F L 98 16 96/72 98 01/07/19 15:01 01/07/19 15:01 01/07/19 15:01 01/07/19 15:01 01/07/19 15:01 Oxygen Flow Rate (L/min) 2 Oxygen Delivery Method Nasal Cannula Weight: 270 lb 8.115 oz Body Mass Index (BMI) 41.1 Laboratory Tests Past 24 Hrs 01/07/19 01/07/19 01/07/19 14:43 14:43 14:43 WBC 4.3 L RBC 3.74 L Hgb 11.1 L Hct 35.7 L MCV 95.5 MCH 29.7 MCHC 31.1 L RDW Std Deviation 55.5 H RDW Coeff of Jaun 15.9 H Plt Count 121 L MPV 10.5 Immature Gran % (Auto) 0.500 Neut % (Auto) 55.2 Lymph % (Auto) 32.9 [place] % (Auto) 9.1 Eos % (Auto) 2.1 Baso % (Auto) 0.2 Absolute Neuts (auto) 2.4 Absolute Lymphs (auto) 1.41 Nucleated RBC % 0 ESR PT INR APTT Specimen Type Sample Site pH Bicarbonate Actual POC Total CO2 Base Excess O2 Saturation ABG pCO2 ABG pO2 Arian Test O2 Delivery Device Blood Gas Notified Whom Blood Gas Notified Time Sodium 139 Potassium 4.3 Chloride 105 Carbon Dioxide 23.0 Anion Gap 11 BUN 39 H Creatinine 7.42 H* Estim Creat Clear Calc 8.44 Est GFR (MDRD) Af Amer 7 L Est GFR (MDRD) Non-Af 6 L BUN/Creatinine Ratio 5.3 L Glucose 84 Serum Osmolality Calcium 8.3 L Phosphorus 5.9 H Magnesium 1.7 Total Bilirubin 1.30 H AST 27 ALT 27 Alkaline Phosphatase 79 C-React Prot Ext Range 7.38 H Total Protein 6.0 L Albumin 3.4 Globulin 2.6 Albumin/Globulin Ratio 1.3 Rheumatoid Factor < 10.0 ZOYA Screen THIERRY-1 Antibody SS-A/Ro IgG Antibody SS-B/La IgG Antibody Sm (Varma) Antibody DIRECTOR OF PROMOTIONS Antibody Scl-70 Scleroderma Ab Double Strand DNA Ab Centromere B Antibody 01/07/19 01/07/19 01/07/19 14:43 14:43 14:43 WBC RBC Hgb Hct MCV MCH MCHC RDW Std Deviation RDW Coeff of Jaun Plt Count MPV Immature Gran % (Auto) Neut % (Auto) Lymph % (Auto) [place] % (Auto) Eos % (Auto) Baso % (Auto) Absolute Neuts (auto) Absolute Lymphs (auto) Nucleated RBC % ESR 8 PT INR APTT Specimen Type Sample Site pH Bicarbonate Actual POC Total CO2 Base Excess O2 Saturation ABG pCO2 ABG pO2 Arian Test O2 Delivery Device Blood Gas Notified Whom Blood Gas Notified Time Sodium Potassium Chloride Carbon Dioxide Anion Gap BUN Creatinine Estim Creat Clear Calc Est GFR (MDRD) Af Amer Est GFR (MDRD) Non-Af BUN/Creatinine Ratio Glucose Serum Osmolality 297 H Calcium Phosphorus Magnesium Total Bilirubin AST ALT Alkaline Phosphatase C-React Prot Ext Range Total Protein Albumin Globulin Albumin/Globulin Ratio Rheumatoid Factor ZOYA Screen Pending THIERRY-1 Antibody Pending SS-A/Ro IgG Antibody Pending SS-B/La IgG Antibody Pending Sm (Varma) Antibody Pending DIRECTOR OF PROMOTIONS Antibody Pending Scl-70 Scleroderma Ab Pending Double Strand DNA Ab Pending Centromere B Antibody Pending 01/07/19 01/07/19 14:43 15:24 WBC RBC Hgb Hct MCV MCH MCHC RDW Std Deviation RDW Coeff of Jaun Plt Count MPV Immature Gran % (Auto) Neut % (Auto) Lymph % (Auto) [place] % (Auto) Eos % (Auto) Baso % (Auto) Absolute Neuts (auto) Absolute Lymphs (auto) Nucleated RBC % ESR PT 13.7 INR 1.1 APTT 26.7 Specimen Type ART Sample Site L Brachial pH 7.30 L Bicarbonate Actual 20.4 L POC Total CO2 22 Base Excess -6 L O2 Saturation 93 L ABG pCO2 41.9 ABG pO2 75 Arian Test NA O2 Delivery Device Room Air Blood Gas Notified Whom HOSP Blood Gas Notified Time 1500 Sodium Potassium Chloride Carbon Dioxide Anion Gap BUN Creatinine Estim Creat Clear Calc Est GFR (MDRD) Af Amer Est GFR (MDRD) Non-Af BUN/Creatinine Ratio Glucose Serum Osmolality Calcium Phosphorus Magnesium Total Bilirubin AST ALT Alkaline Phosphatase C-React Prot Ext Range Total Protein Albumin Globulin Albumin/Globulin Ratio Rheumatoid Factor ZOYA Screen THIERRY-1 Antibody SS-A/Ro IgG Antibody SS-B/La IgG Antibody Sm (Varma) Antibody DIRECTOR OF PROMOTIONS Antibody Scl-70 Scleroderma Ab Double Strand DNA Ab Centromere B Antibody Assessment/Plan All Active Problems (Last Reviewed 01/07/19 @ 18:25 by Bridgette Ivory DO) Respiratory failure with hypoxia (Ruled-out) Respiratory insufficiency (Acute) Anemia (Acute) Thrombocytopenia (Acute) Metabolic acidosis (Acute) ARF (acute renal failure) (Acute) Hyperphosphatemia (Acute) Idiopathic right ventricular dilation (Acute) Hypotension (Acute) Sepsis (Resolved) Impressions 1. Hypoxemia on pulse ox in AC 81 % on RA. 98% on 2 LPM on PCU and 93% on RA on ABG, mildly increased Aa gradient 2. Chronic respiratory failure with hypoxemia? 3. GENNARO on BIPAP 4. ARF - etiology unclear but with the low BP may be due to dehydration 5. Hypotension 6. chronic abd pain with hx of ulcerative colitis in December 2018....suspected to be due to localized ischemic colitis. No FH of IBD 7. HTN 8. Hyperlipidemia 9. Anxiety 10. Bronchiectasis on CT scan 11. Suspected COPD 12. Leukopenia-etiology unclear at this time 13. Thrombocytopenia 14. Liver hemangioma 15. Former smoker-quit in 2004 16. Morbid obesity 17. Right ventricular dilatation with decreased contractility Etiology? VQ in the AM Urine electrolytes and creatinine have been ordered IV fluids have been ordered Recheck lab in the a.m. Discussed with Dr. Hernandez-no colonoscopy until the patient is medically stable Discussed with Dr. Padron and with Dr. Winkler and reviewed their recommendations. Will need a walking oximetry prior to discharge Continuous pulse ox Code Visit Inpatient E&M: [id number] [facility] L3
--- NOTE | 2019-01-07 17:55 | NURSING ---
DR MAYA NOTIFIED OF BLADDER SCAN RESULT. NNO.
[2019-01-07] MEDS: 0.9% NaCl Peripheral Flush Adult/Peds IV ×2 (19:46→22:52)
[2019-01-07] MEDS: Atorvastatin Calcium 80 MG Tablet PO (19:46)
[2019-01-07] MEDS: Temazepam 15 MG Capsule 30 MG PO (19:48)
[2019-01-07 22:57] LABS: Bacteria 0 SEEN /hpf (None Seen); Mucous, Urine 0 SEEN /hpf (<or=2+); Red Blood Cells-Urine 0 SEEN /hpf (0-5)
[2019-01-07 23:11] LABS: Color, Urine Yellow (Yellow); Glucose, Dipstick Normal (Normal); Ketone-Dipstick Negative (Negative); Leukocyte Esterase-Dipstick 100 /ul (Negative); Nitrite-Dipstick Negative (Negative); Occult Blood-Urine 25 /ul (Negative); Protein-Dipstick 100 mg/dl (Negative); Specific Gravity, Urine 1.015 (1.002-1.030); Urine Bilirubin Dipstick Negative (Negative); Urine Clarity Cloudy (Clear); Urine Urobilinogen Normal (Normal)
[2019-01-07 23:17] LABS: White Blood Cells 5-10 SEEN /hpf (0-5)
[2019-01-07 23:18] LABS: Squamous Epithelial Cells - UA 0-5 SEEN /hpf (5-10); Urine Chloride 58 mmol/L (Not Establ.); Urine Sodium 73 mmol/L (Not Establ.)
[2019-01-07 23:19] LABS: Transitional Epithelial - Ur 0-5 SEEN /hpf (0-5); Yeast-Urine RARE /hpf (None Seen)
[2019-01-07 23:32] LABS: Osmolality, Urine 296 mOsm/KG
[2019-01-08] VITALS (17 sets, daily range): BP systolic 83–113; BP diastolic 47–74; PULSE 73–109; RESP 14–18; TEMP 36.3–37; O2SAT 94–100; BMI 41.1
[2019-01-08] MEDS: 0.9% Normal Saline 1,000 ML 150 ML IV ×3 (05:33→18:47)
[2019-01-08] MEDS: fentaNYL 100 MCG/2 ML Ampul 25 MCG IV (05:44)
[2019-01-08] MEDS: proCHLORPERazine 10 MG/2 ML Vial 5 MG IV ×2 (05:44→18:40)
[2019-01-08] MEDS: 0.9% NaCl Peripheral Flush Adult/Peds IV ×4 (05:44→23:23)
--- NOTE | 2019-01-08 05:55 | NM_ITS ---
CLINICAL: Female, 58 years old. Right lower quadrant pain. Kidney failure. NUCLEAR VENTILATION/PERFUSION - LUNG TECHNIQUE: The patient was administered 5.3 mCi of Tc MAA followed by a perfusion lung scan. The patient was administered 50 mCi of Tc DTPA aerosol followed by a ventilation lung scan. Comparison made to prior chest radiograph dated . COMPARISON STUDIES : Comparison is made with prior chest radiograph done earlier today. FINDINGS: The pulmonary perfusion study demonstrates uniform perfusion throughout both lung akbar. There are no demonstrated segmental or subsegmental perfusion defects The ventilation study demonstrates uniform ventilation throughout both lung akbar. There are no segmental or subsegmental ventilation abnormalities. NM/Lung Scan Vent/Perf IMPRESSION: Normal 99m Tc MAA pulmonary perfusion Tc DTPA aerosol ventilation imaging survey, according to revised PIOPED interpretive criteria. Electronically Signed: Kamran Velazquez, at 11:27 EDT , Service support ,
[2019-01-08 07:14] LABS: Hematocrit 32.3 % (37-47); Hemoglobin 10.1 g/dL (12.0-15.0); Mean Corp Hgb Conc 31.3 g/dL (32-36); Mean Corpuscular Hgb 29.6 pg (27.0-32.0); Mean Corpuscular Volume 94.7 fL (81-99); Mean Platelet Vol. 11.2 fl (6.2-12.0); Platelet Count 98 K/mm3 (150-450); RBC Distribution Width CV 16.1 % (11.6-14.6); RBC Distribution Width SD 55.8 fl (35.1-43.9); Red Blood Count 3.41 M/mm3 (4.2-5.4); White Blood Count 3.3 K/mm3 (4.4-11.0)
[2019-01-08 07:35] LABS: ALB/GLOB Ratio 1.3 RATIO (0.9-2.4); AST(SGOT) 23 U/L (15-37); Alanine Aminotransfer ALT/SGPT 22 U/L (13-56); Alkaline Phosphatase 70 U/L (45-117); Anion Gap 10 (5-15); BUN 41 mg/dL (7-18); BUN/Creat Ratio 5.4 RATIO (10-20); Calcium,Total 7.7 mg/dL (8.5-10.1); Chloride 108 mmol/L (98-107); Creatinine, Serum 7.57 mg/dL (0.55-1.02); EST Glomerular Filtration Rate 6 mL/min (>60); Est Glom Filt Rate - Afr Amer 7 mL/min (>60); Estimated Creatinine Clearance 8.27 ml/min; Globulin 2.3 g/dL (2.2-4.2); Glucose 101 mg/dL (74-106); Phosphorus 6.9 mg/dL (2.5-4.9); Potassium 4.8 mmol/L (3.5-5.1); Protein, Total 5.3 g/dL (6.4-8.2); Sodium Level 139 mmol/L (136-145)
--- NOTE | 2019-01-08 09:02 | PN.RENAL_ITS ---
Patient Problems: Active and Suspected Problems (Last Reviewed 01/07/19 @ 18:25 by Bridgette Ivory DO) Thrombocytopenia (Acute) Metabolic acidosis (Acute) ARF (acute renal failure) (Acute) Hyperphosphatemia (Acute) Idiopathic right ventricular dilation (Acute) Hypotension (Acute) COPD (chronic obstructive pulmonary disease) (Suspected) Subjective: pt with nausea, anxious. urine output not documented. Creatinine remains elevated with minimal blood in urine. Serologies pending. Oxygenation stable on RA. Tolerating iv fluids. Discussed with pt may need kidney biopsy if renal fxn does not improve and possibly temporary dialysis. Pt states used golytely for colon prep. - Physical Exam General: Alert, Oriented x3, Cooperative, No apparent distress Neck: Supple Lungs: Clear to auscultation Cardiovascular: Regular rate Abdomen: Bowel Sounds Present, Soft, Non-Distended, Obese, Tender - RLQ Extremities: No edema Neurological: Cranial nerves II-XII grossly intact Psych/Mental Status: Anxious, Depressed, Alert and oriented to time, place, person, mood and affect Vital Signs Temp Pulse Resp BP Pulse Ox 98.0 F 90 18 92/59 L 99 01/08/19 05:30 01/08/19 07:00 01/08/19 05:30 01/08/19 05:30 01/08/19 05:30 Oxygen Flow Rate (L/min) 2 Oxygen Delivery Method Nasal Cannula Weight: 122.7 kg Body Mass Index (BMI) 41.1 Intake and Output for Last 24 Hours 01/06/19 01/07/19 01/08/19 23:59 23:59 23:59 Intake Total 2619 / 2619 Balance 2619 / 2619 Laboratory Tests Past 24 Hrs 01/07/19 01/07/19 01/07/19 14:43 14:43 14:43 WBC 4.3 L RBC 3.74 L Hgb 11.1 L Hct 35.7 L MCV 95.5 MCH 29.7 MCHC 31.1 L RDW Std Deviation 55.5 H RDW Coeff of Jaun 15.9 H Plt Count 121 L MPV 10.5 Immature Gran % (Auto) 0.500 Neut % (Auto) 55.2 Lymph % (Auto) 32.9 [place] % (Auto) 9.1 Eos % (Auto) 2.1 Baso % (Auto) 0.2 Absolute Neuts (auto) 2.4 Absolute Lymphs (auto) 1.41 Nucleated RBC % 0 ESR Eos Smear Total Cells PT INR APTT Specimen Type Sample Site pH Bicarbonate Actual POC Total CO2 Base Excess O2 Saturation ABG pCO2 ABG pO2 Arian Test O2 Delivery Device Blood Gas Notified Whom Blood Gas Notified Time Sodium 139 Potassium 4.3 Chloride 105 Carbon Dioxide 23.0 Anion Gap 11 BUN 39 H Creatinine 7.42 H* Estim Creat Clear Calc 8.44 Est GFR (MDRD) Af Amer 7 L Est GFR (MDRD) Non-Af 6 L BUN/Creatinine Ratio 5.3 L Glucose 84 Serum Osmolality Calcium 8.3 L Phosphorus 5.9 H Magnesium 1.7 Total Bilirubin 1.30 H AST 27 ALT 27 Alkaline Phosphatase 79 C-React Prot Ext Range 7.38 H Total Protein 6.0 L Albumin 3.4 Globulin 2.6 Albumin/Globulin Ratio 1.3 Urine Color Urine Clarity Urine pH Ur Specific [place] Urine Protein Urine Glucose (UA) Urine Ketones Urine Occult Blood Urine Nitrite Urine Bilirubin Urine Urobilinogen Ur Leukocyte Esterase Urine RBC Urine WBC Ur Squamous Epith Cells Ur Transition Epith Cell Urine Bacteria Urine Mucus Urine Yeast Urine Osmolality Ur Random Sodium Urine Creatinine Urine Potassium Urine Chloride Rheumatoid Factor < 10.0 ZOYA Screen THIERRY-1 Antibody SS-A/Ro IgG Antibody SS-B/La IgG Antibody Sm (Varma) Antibody [employer]UD[employer]IDENT Antibody Scl-70 Scleroderma Ab Double Strand DNA Ab Centromere B Antibody 01/07/19 01/07/19 01/07/19 14:43 14:43 14:43 WBC RBC Hgb Hct MCV MCH MCHC RDW Std Deviation RDW Coeff of Jaun Plt Count MPV Immature Gran % (Auto) Neut % (Auto) Lymph % (Auto) [place] % (Auto) Eos % (Auto) Baso % (Auto) Absolute Neuts (auto) Absolute Lymphs (auto) Nucleated RBC % ESR 8 Eos Smear Total Cells PT INR APTT Specimen Type Sample Site pH Bicarbonate Actual POC Total CO2 Base Excess O2 Saturation ABG pCO2 ABG pO2 Arian Test O2 Delivery Device Blood Gas Notified Whom Blood Gas Notified Time Sodium Potassium Chloride Carbon Dioxide Anion Gap BUN Creatinine Estim Creat Clear Calc Est GFR (MDRD) Af Amer Est GFR (MDRD) Non-Af BUN/Creatinine Ratio Glucose Serum Osmolality 297 H Calcium Phosphorus Magnesium Total Bilirubin AST ALT Alkaline Phosphatase C-React Prot Ext Range Total Protein Albumin Globulin Albumin/Globulin Ratio Urine Color Urine Clarity Urine pH Ur Specific [place] Urine Protein Urine Glucose (UA) Urine Ketones Urine Occult Blood Urine Nitrite Urine Bilirubin Urine Urobilinogen Ur Leukocyte Esterase Urine RBC Urine WBC Ur Squamous Epith Cells Ur Transition Epith Cell Urine Bacteria Urine Mucus Urine Yeast Urine Osmolality Ur Random Sodium Urine Creatinine Urine Potassium Urine Chloride Rheumatoid Factor ZOYA Screen Pending THIERRY-1 Antibody Pending SS-A/Ro IgG Antibody Pending SS-B/La IgG Antibody Pending Sm (Varma) Antibody Pending [employer] PRESIDENT Antibody Pending Scl-70 Scleroderma Ab Pending Double Strand DNA Ab Pending Centromere B Antibody Pending 01/07/19 01/07/19 01/07/19 14:43 15:24 22:21 WBC RBC Hgb Hct MCV MCH MCHC RDW Std Deviation RDW Coeff of Jaun Plt Count MPV Immature Gran % (Auto) Neut % (Auto) Lymph % (Auto) [place] % (Auto) Eos % (Auto) Baso % (Auto) Absolute Neuts (auto) Absolute Lymphs (auto) Nucleated RBC % ESR Eos Smear Total Cells Pending PT 13.7 INR 1.1 APTT 26.7 Specimen Type ART Sample Site L Brachial pH 7.30 L Bicarbonate Actual 20.4 L POC Total CO2 22 Base Excess -6 L O2 Saturation 93 L ABG pCO2 41.9 ABG pO2 75 Arian Test NA O2 Delivery Device Room Air Blood Gas Notified Whom HOSP Blood Gas Notified Time 1500 Sodium Potassium Chloride Carbon Dioxide Anion Gap BUN Creatinine Estim Creat Clear Calc Est GFR (MDRD) Af Amer Est GFR (MDRD) Non-Af BUN/Creatinine Ratio Glucose Serum Osmolality Calcium Phosphorus Magnesium Total Bilirubin AST ALT Alkaline Phosphatase C-React Prot Ext Range Total Protein Albumin Globulin Albumin/Globulin Ratio Urine Color Urine Clarity Urine pH Ur Specific [place] Urine Protein Urine Glucose (UA) Urine Ketones Urine Occult Blood Urine Nitrite Urine Bilirubin Urine Urobilinogen Ur Leukocyte Esterase Urine RBC Urine WBC Ur Squamous Epith Cells Ur Transition Epith Cell Urine Bacteria Urine Mucus Urine Yeast Urine Osmolality Ur Random Sodium Urine Creatinine Urine Potassium Urine Chloride Rheumatoid Factor ZOYA Screen THIERRY-1 Antibody SS-A/Ro IgG Antibody SS-B/La IgG Antibody Sm (Varma) Antibody [employer] PRESIDENT Antibody Scl-70 Scleroderma Ab Double Strand DNA Ab Centromere B Antibody 01/07/19 01/07/19 01/07/19 22:21 22:21 22:21 WBC RBC Hgb Hct MCV MCH MCHC RDW Std Deviation RDW Coeff of Jaun Plt Count MPV Immature Gran % (Auto) Neut % (Auto) Lymph % (Auto) [place] % (Auto) Eos % (Auto) Baso % (Auto) Absolute Neuts (auto) Absolute Lymphs (auto) Nucleated RBC % ESR Eos Smear Total Cells PT INR APTT Specimen Type Sample Site pH Bicarbonate Actual POC Total CO2 Base Excess O2 Saturation ABG pCO2 ABG pO2 Arian Test O2 Delivery Device Blood Gas Notified Whom Blood Gas Notified Time Sodium Potassium Chloride Carbon Dioxide Anion Gap BUN Creatinine Estim Creat Clear Calc Est GFR (MDRD) Af Amer Est GFR (MDRD) Non-Af BUN/Creatinine Ratio Glucose Serum Osmolality Calcium Phosphorus Magnesium Total Bilirubin AST ALT Alkaline Phosphatase C-React Prot Ext Range Total Protein Albumin Globulin Albumin/Globulin Ratio Urine Color Urine Clarity Urine pH Ur Specific [place] Urine Protein Urine Glucose (UA) Urine Ketones Urine Occult Blood Urine Nitrite Urine Bilirubin Urine Urobilinogen Ur Leukocyte Esterase Urine RBC Urine WBC Ur Squamous Epith Cells Ur Transition Epith Cell Urine Bacteria Urine Mucus Urine Yeast Urine Osmolality 296 Ur Random Sodium 73 Urine Creatinine 155.00 Urine Potassium 32.0 Urine Chloride 58 Rheumatoid Factor ZOYA Screen THIERRY-1 Antibody SS-A/Ro IgG Antibody SS-B/La IgG Antibody Sm (Varma) Antibody [employer] PRESIDENT Antibody Scl-70 Scleroderma Ab Double Strand DNA Ab Centromere B Antibody 01/07/19 01/08/19 01/08/19 22:21 06:40 06:40 WBC 3.3 L RBC 3.41 L Hgb 10.1 L Hct 32.3 L MCV 94.7 MCH 29.6 MCHC 31.3 L RDW Std Deviation 55.8 H RDW Coeff of Jaun 16.1 H Plt Count 98 L MPV 11.2 Immature Gran % (Auto) Neut % (Auto) Lymph % (Auto) [place] % (Auto) Eos % (Auto) Baso % (Auto) Absolute Neuts (auto) Absolute Lymphs (auto) Nucleated RBC % ESR Eos Smear Total Cells PT INR APTT Specimen Type Sample Site pH Bicarbonate Actual POC Total CO2 Base Excess O2 Saturation ABG pCO2 ABG pO2 Arian Test O2 Delivery Device Blood Gas Notified Whom Blood Gas Notified Time Sodium 139 Potassium 4.8 Chloride 108 H Carbon Dioxide 21.0 Anion Gap 10 BUN 41 H Creatinine 7.57 H* Estim Creat Clear Calc 8.27 Est GFR (MDRD) Af Amer 7 L Est GFR (MDRD) Non-Af 6 L BUN/Creatinine Ratio 5.4 L Glucose 101 Serum Osmolality Calcium 7.7 L Phosphorus 6.9 H Magnesium Total Bilirubin 1.10 H AST 23 ALT 22 Alkaline Phosphatase 70 C-React Prot Ext Range Total Protein 5.3 L Albumin 3.0 L Globulin 2.3 Albumin/Globulin Ratio 1.3 Urine Color Yellow Urine Clarity Cloudy Urine pH 5.0 Ur Specific [place] 1.015 Urine Protein 100 H Urine Glucose (UA) Normal Urine Ketones Negative Urine Occult Blood 25 H Urine Nitrite Negative Urine Bilirubin Negative Urine Urobilinogen Normal Ur Leukocyte Esterase 100 H Urine RBC 0 SEEN Urine WBC 5-10 SEEN Ur Squamous Epith Cells 0-5 SEEN Ur Transition Epith Cell 0-5 SEEN Urine Bacteria 0 SEEN Urine Mucus 0 SEEN Urine Yeast RARE Urine Osmolality Ur Random Sodium Urine Creatinine Urine Potassium Urine Chloride Rheumatoid Factor ZOYA Screen THIERRY-1 Antibody SS-A/Ro IgG Antibody SS-B/La IgG Antibody Sm (Varma) Antibody [employer]UD[employer] PRESIDENT Antibody Scl-70 Scleroderma Ab Double Strand DNA Ab Centromere B Antibody Clinical Impression(s) from Imaging Studies Chest X-Ray 01/07/19 12:22 IMPRESSION: Increased markings in the right mid lung as well as at the left lung base suggestive of atelectasis. Electronically Signed: Kamran Velazquez at 13:31 EDT , Service support , Renal Ultrasound 01/07/19 16:05 IMPRESSION: Within normal limits ultrasound of the kidneys and urinary bladder. Electronically Signed: Laine Botello MD at 17:14 EDT Tel , Service support , Medical Necessity - Tobacco Use Smoking Status: Former smoker - Quit in 2004 Tobacco Use: Non-smoker Assessment/Plan All Active Problems (Last Reviewed 01/07/19 @ 18:25 by Bridgette Ivory DO) Respiratory failure with hypoxia (Ruled-out) Respiratory insufficiency (Acute) Anemia (Acute) Thrombocytopenia (Acute) Metabolic acidosis (Acute) ARF (acute renal failure) (Acute) Hyperphosphatemia (Acute) Idiopathic right ventricular dilation (Acute) Hypotension (Acute) Sepsis (Resolved) 1. Acute kidney injury unclear etiology possible ATN, FeNa >1% but cannot r/o other glomerular process. Unable to assess urine volumes, none documented. Continue with iv fluids. [place] to CD to get more accurate assessment of urine output. Discussed with pt and pt spouse, dtr at bedside possible kidney biopsy or temporary dialysis if renal fxn does not improve. No urgency for dialysis today. Baseline creatinine 0.8. Renal US unremarkable. Doubt vasculitis based on bland urine sediment. Await serologies. 2. Left flank pain with a remote history of kidney stones. no stones on kidney ultrasound. 3. Hypotension continue fluid resuscitation. 4. History of GI bleed with colitis recommend to hold on Colonoscopy due to renal failure. 5. Hypoxemia episode. oxygenation stable on RA. VQ scan pending r/o pulmonary embolus but unlikely since oxgenation stable. Discussed with hospitalist, radiologist for possible kidney biopsy.
[2019-01-08] MEDS: Pantoprazole Sodium 40 MG Tablet PO (09:09)
--- NOTE | 2019-01-08 09:19 | PCM.PN.PUL ---
Patient Problems: Active and Suspected Problems (Last Reviewed 01/07/19 @ 18:25 by Bridgette Ivory DO) Thrombocytopenia (Acute) Metabolic acidosis (Acute) ARF (acute renal failure) (Acute) Hyperphosphatemia (Acute) Idiopathic right ventricular dilation (Acute) Hypotension (Acute) COPD (chronic obstructive pulmonary disease) (Suspected) Subjective: Patient did okay overnight. No acute issues were reported. Patient did wear BiPAP. Patient does report some anxiety and nausea this morning. Patient states that she did urinate just before my evaluation, but was unaware of the volume. Patient does state that she feels more puffy today, especially in her hands. - Physical Exam General: Alert, Oriented x3, Cooperative, No apparent distress, - - Morbidly obese. No conversational dyspnea. HEENT: Atraumatic, PERRLA, EOMI, Normocephalic, - - No scleral icterus or injection noted. Oral: Moist Mucosa, No Gingival or Mucosal Lesions/ Ulcerations Neck: Supple, No Nodes, Trachea Midline, - - Difficult to assess JVD secondary to body habitus Lungs: No rhonchi, No wheeze, No rales, Diminished Cardiovascular: Regular rate, Regular Rhythm, Normal S1, Normal S2, No murmurs, No rub noted, No Gallop Abdomen: Bowel Sounds Present, Soft, Non Tender, Non-Distended, Obese Extremities: No clubbing, No cyanosis, Edema Skin: No rashes, No breakdown Musculoskeletal: No Tenderness to Palpation of Joints or Extremities Lymphatic: No Cervical, Supraclavicular, or Inguinal Adenopathy Neurological: Cranial nerves II-XII grossly intact, Neuro grossly intact, Motor Exam 5/5 strength throughout Psych/Mental Status: Appropriate, Anxious Vital Signs Temp Pulse Resp BP Pulse Ox 36.3 C L 95 18 113/63 98 01/08/19 09:06 01/08/19 09:06 01/08/19 09:06 01/08/19 09:06 01/08/19 09:06 Oxygen Flow Rate (L/min) 2 Oxygen Delivery Method Room Air Weight: 122.7 kg Body Mass Index (BMI) 41.1 Intake and Output for Last 24 Hours 01/06/19 01/07/19 01/08/19 23:59 23:59 23:59 Intake Total 2619 / 2619 Balance 2619 / 2619 Laboratory Tests Past 24 Hrs 01/07/19 01/07/19 01/07/19 14:43 14:43 14:43 WBC 4.3 L RBC 3.74 L Hgb 11.1 L Hct 35.7 L MCV 95.5 MCH 29.7 MCHC 31.1 L RDW Std Deviation 55.5 H RDW Coeff of Jaun 15.9 H Plt Count 121 L MPV 10.5 Immature Gran % (Auto) 0.500 Neut % (Auto) 55.2 Lymph % (Auto) 32.9 [place] % (Auto) 9.1 Eos % (Auto) 2.1 Baso % (Auto) 0.2 Absolute Neuts (auto) 2.4 Absolute Lymphs (auto) 1.41 Nucleated RBC % 0 ESR Eos Smear Total Cells PT INR APTT Specimen Type Sample Site pH Bicarbonate Actual POC Total CO2 Base Excess O2 Saturation ABG pCO2 ABG pO2 Arian Test O2 Delivery Device Blood Gas Notified Whom Blood Gas Notified Time Sodium 139 Potassium 4.3 Chloride 105 Carbon Dioxide 23.0 Anion Gap 11 BUN 39 H Creatinine 7.42 H* Estim Creat Clear Calc 8.44 Est GFR (MDRD) Af Amer 7 L Est GFR (MDRD) Non-Af 6 L BUN/Creatinine Ratio 5.3 L Glucose 84 Serum Osmolality Calcium 8.3 L Phosphorus 5.9 H Magnesium 1.7 Total Bilirubin 1.30 H AST 27 ALT 27 Alkaline Phosphatase 79 C-React Prot Ext Range 7.38 H Total Protein 6.0 L Albumin 3.4 Globulin 2.6 Albumin/Globulin Ratio 1.3 Urine Color Urine Clarity Urine pH Ur Specific [place] Urine Protein Urine Glucose (UA) Urine Ketones Urine Occult Blood Urine Nitrite Urine Bilirubin Urine Urobilinogen Ur Leukocyte Esterase Urine RBC Urine WBC Ur Squamous Epith Cells Ur Transition Epith Cell Urine Bacteria Urine Mucus Urine Yeast Urine Osmolality Ur Random Sodium Urine Creatinine Urine Potassium Urine Chloride Rheumatoid Factor < 10.0 ZOYA Screen THIERRY-1 Antibody SS-A/Ro IgG Antibody SS-B/La IgG Antibody Sm (Varma) Antibody TELEPHOTO ENGINEER Antibody Scl-70 Scleroderma Ab Double Strand DNA Ab Centromere B Antibody 01/07/19 01/07/19 01/07/19 14:43 14:43 14:43 WBC RBC Hgb Hct MCV MCH MCHC RDW Std Deviation RDW Coeff of Jaun Plt Count MPV Immature Gran % (Auto) Neut % (Auto) Lymph % (Auto) [place] % (Auto) Eos % (Auto) Baso % (Auto) Absolute Neuts (auto) Absolute Lymphs (auto) Nucleated RBC % ESR 8 Eos Smear Total Cells PT INR APTT Specimen Type Sample Site pH Bicarbonate Actual POC Total CO2 Base Excess O2 Saturation ABG pCO2 ABG pO2 Arian Test O2 Delivery Device Blood Gas Notified Whom Blood Gas Notified Time Sodium Potassium Chloride Carbon Dioxide Anion Gap BUN Creatinine Estim Creat Clear Calc Est GFR (MDRD) Af Amer Est GFR (MDRD) Non-Af BUN/Creatinine Ratio Glucose Serum Osmolality 297 H Calcium Phosphorus Magnesium Total Bilirubin AST ALT Alkaline Phosphatase C-React Prot Ext Range Total Protein Albumin Globulin Albumin/Globulin Ratio Urine Color Urine Clarity Urine pH Ur Specific [place] Urine Protein Urine Glucose (UA) Urine Ketones Urine Occult Blood Urine Nitrite Urine Bilirubin Urine Urobilinogen Ur Leukocyte Esterase Urine RBC Urine WBC Ur Squamous Epith Cells Ur Transition Epith Cell Urine Bacteria Urine Mucus Urine Yeast Urine Osmolality Ur Random Sodium Urine Creatinine Urine Potassium Urine Chloride Rheumatoid Factor ZOYA Screen Pending THIERRY-1 Antibody Pending SS-A/Ro IgG Antibody Pending SS-B/La IgG Antibody Pending Sm (Varma) Antibody Pending TELEPHOTO ENGINEER Antibody Pending Scl-70 Scleroderma Ab Pending Double Strand DNA Ab Pending Centromere B Antibody Pending 01/07/19 01/07/19 01/07/19 14:43 15:24 22:21 WBC RBC Hgb Hct MCV MCH MCHC RDW Std Deviation RDW Coeff of Jaun Plt Count MPV Immature Gran % (Auto) Neut % (Auto) Lymph % (Auto) [place] % (Auto) Eos % (Auto) Baso % (Auto) Absolute Neuts (auto) Absolute Lymphs (auto) Nucleated RBC % ESR Eos Smear Total Cells Pending PT 13.7 INR 1.1 APTT 26.7 Specimen Type ART Sample Site L Brachial pH 7.30 L Bicarbonate Actual 20.4 L POC Total CO2 22 Base Excess -6 L O2 Saturation 93 L ABG pCO2 41.9 ABG pO2 75 Arian Test NA O2 Delivery Device Room Air Blood Gas Notified Whom [facility] Blood Gas Notified Time 1500 Sodium Potassium Chloride Carbon Dioxide Anion Gap BUN Creatinine Estim Creat Clear Calc Est GFR (MDRD) Af Amer Est GFR (MDRD) Non-Af BUN/Creatinine Ratio Glucose Serum Osmolality Calcium Phosphorus Magnesium Total Bilirubin AST ALT Alkaline Phosphatase C-React Prot Ext Range Total Protein Albumin Globulin Albumin/Globulin Ratio Urine Color Urine Clarity Urine pH Ur Specific [place] Urine Protein Urine Glucose (UA) Urine Ketones Urine Occult Blood Urine Nitrite Urine Bilirubin Urine Urobilinogen Ur Leukocyte Esterase Urine RBC Urine WBC Ur Squamous Epith Cells Ur Transition Epith Cell Urine Bacteria Urine Mucus Urine Yeast Urine Osmolality Ur Random Sodium Urine Creatinine Urine Potassium Urine Chloride Rheumatoid Factor ZOYA Screen THIERRY-1 Antibody SS-A/Ro IgG Antibody SS-B/La IgG Antibody Sm (Varma) Antibody TELEPHOTO ENGINEER Antibody Scl-70 Scleroderma Ab Double Strand DNA Ab Centromere B Antibody 01/07/19 01/07/19 01/07/19 22:21 22:21 22:21 WBC RBC Hgb Hct MCV MCH MCHC RDW Std Deviation RDW Coeff of Jaun Plt Count MPV Immature Gran % (Auto) Neut % (Auto) Lymph % (Auto) [place] % (Auto) Eos % (Auto) Baso % (Auto) Absolute Neuts (auto) Absolute Lymphs (auto) Nucleated RBC % ESR Eos Smear Total Cells PT INR APTT Specimen Type Sample Site pH Bicarbonate Actual POC Total CO2 Base Excess O2 Saturation ABG pCO2 ABG pO2 Arian Test O2 Delivery Device Blood Gas Notified Whom Blood Gas Notified Time Sodium Potassium Chloride Carbon Dioxide Anion Gap BUN Creatinine Estim Creat Clear Calc Est GFR (MDRD) Af Amer Est GFR (MDRD) Non-Af BUN/Creatinine Ratio Glucose Serum Osmolality Calcium Phosphorus Magnesium Total Bilirubin AST ALT Alkaline Phosphatase C-React Prot Ext Range Total Protein Albumin Globulin Albumin/Globulin Ratio Urine Color Urine Clarity Urine pH Ur Specific [place] Urine Protein Urine Glucose (UA) Urine Ketones Urine Occult Blood Urine Nitrite Urine Bilirubin Urine Urobilinogen Ur Leukocyte Esterase Urine RBC Urine WBC Ur Squamous Epith Cells Ur Transition Epith Cell Urine Bacteria Urine Mucus Urine Yeast Urine Osmolality 296 Ur Random Sodium 73 Urine Creatinine 155.00 Urine Potassium 32.0 Urine Chloride 58 Rheumatoid Factor ZOYA Screen THIERRY-1 Antibody SS-A/Ro IgG Antibody SS-B/La IgG Antibody Sm (Varma) Antibody TELEPHOTO ENGINEER Antibody Scl-70 Scleroderma Ab Double Strand DNA Ab Centromere B Antibody 01/07/19 01/08/19 01/08/19 22:21 06:40 06:40 WBC 3.3 L RBC 3.41 L Hgb 10.1 L Hct 32.3 L MCV 94.7 MCH 29.6 MCHC 31.3 L RDW Std Deviation 55.8 H RDW Coeff of Jaun 16.1 H Plt Count 98 L MPV 11.2 Immature Gran % (Auto) Neut % (Auto) Lymph % (Auto) [place] % (Auto) Eos % (Auto) Baso % (Auto) Absolute Neuts (auto) Absolute Lymphs (auto) Nucleated RBC % ESR Eos Smear Total Cells PT INR APTT Specimen Type Sample Site pH Bicarbonate Actual POC Total CO2 Base Excess O2 Saturation ABG pCO2 ABG pO2 Arian Test O2 Delivery Device Blood Gas Notified Whom Blood Gas Notified Time Sodium 139 Potassium 4.8 Chloride 108 H Carbon Dioxide 21.0 Anion Gap 10 BUN 41 H Creatinine 7.57 H* Estim Creat Clear Calc 8.27 Est GFR (MDRD) Af Amer 7 L Est GFR (MDRD) Non-Af 6 L BUN/Creatinine Ratio 5.4 L Glucose 101 Serum Osmolality Calcium 7.7 L Phosphorus 6.9 H Magnesium Total Bilirubin 1.10 H AST 23 ALT 22 Alkaline Phosphatase 70 C-React Prot Ext Range Total Protein 5.3 L Albumin 3.0 L Globulin 2.3 Albumin/Globulin Ratio 1.3 Urine Color Yellow Urine Clarity Cloudy Urine pH 5.0 Ur Specific [place] 1.015 Urine Protein 100 H Urine Glucose (UA) Normal Urine Ketones Negative Urine Occult Blood 25 H Urine Nitrite Negative Urine Bilirubin Negative Urine Urobilinogen Normal Ur Leukocyte Esterase 100 H Urine RBC 0 SEEN Urine WBC 5-10 SEEN Ur Squamous Epith Cells 0-5 SEEN Ur Transition Epith Cell 0-5 SEEN Urine Bacteria 0 SEEN Urine Mucus 0 SEEN Urine Yeast RARE Urine Osmolality Ur Random Sodium Urine Creatinine Urine Potassium Urine Chloride Rheumatoid Factor ZOYA Screen THIERRY-1 Antibody SS-A/Ro IgG Antibody SS-B/La IgG Antibody Sm (Varma) Antibody TELEPHOTO ENGINEER Antibody Scl-70 Scleroderma Ab Double Strand DNA Ab Centromere B Antibody Clinical Impression(s) from Imaging Studies Chest X-Ray 01/07/19 12:22 IMPRESSION: Increased markings in the right mid lung as well as at the left lung base suggestive of atelectasis. Electronically Signed: Kamran Velazquez, at 13:31 EDT , Service support , Renal Ultrasound 01/07/19 16:05 IMPRESSION: Within normal limits ultrasound of the kidneys and urinary bladder. Electronically Signed: Laine Botello MD at 17:14 EDT Tel , Service support , Medical Necessity - Tobacco Use Smoking Status: Former smoker - Quit in 2004 Tobacco Use: Non-smoker Assessment/Plan All Active Problems (Last Reviewed 01/07/19 @ 18:25 by Bridgette Ivory DO) Respiratory failure with hypoxia (Ruled-out) Respiratory insufficiency (Acute) Anemia (Acute) Thrombocytopenia (Acute) Metabolic acidosis (Acute) ARF (acute renal failure) (Acute) Hyperphosphatemia (Acute) Idiopathic right ventricular dilation (Acute) Hypotension (Acute) Sepsis (Resolved) RECOMMENDATIONS: 1. Walking oximetry prior to discharge 2. Initiate triple inhalation therapy 3. Await renal recommendations 4. Continue baseline BiPAP therapy 7. Outpatient complete PFT and polysomnogram 8. Walking oximetry prior to discharge IMPRESSIONS: 1. Hypoxemia Patient appears to have resolved to good saturations on room air while at rest. Patient may still have an element of pulmonary hypertension secondary to chronic hypoxemia with sleep. Okay to continue with room air for now. Cannot exclude air trapping with desaturation secondary to underlying chronic bronchitis/bronchiectasis. Will place patient on triple therapy and see if this helps her overall condition. Pulmonary hypertension is not very impressive by echocardiogram, but patient does have RV dysfunction. 2. Obstructive sleep apnea Patient with severe obstructive sleep apnea and desaturation on sleep study. Unclear if patient is persisting and hypoxemia overnight. Patient should continue on continuous pulse ox. If patient has significant desaturations while on home BiPAP, she could be transition to AVAPS with titration of oxygen appropriately. 3. Bronchiectasis New diagnosis. Patient does not appear to have significant mucus plugging at this time. Could initiate Acapella therapy. Patient does have some wheezing on exam and may benefit from empiric bronchodilator therapy. Unclear if patient truly requires steroid therapy. Patient should have a complete pulmonary function test as an outpatient. Patient should have a walking oximetry prior to discharge. 4. Acute renal failure Possible prerenal etiology, but BUN/creatinine ratio was not suggestive. Nephrology has been consulted. No indication for urgent renal replacement therapy. Autoimmune work-up is currently pending. 5. Pancytopenia/recent colitis/morbid obesity/liver hemangioma/anxiety/depression/history of smoking Complicates care, management, recovery and prognosis. May consider hematology evaluation if autoimmune panel is negative Code Visit Inpatient E&M: 73765 Subs Hosp L2
--- NOTE | 2019-01-08 10:00 | RAD_ITS ---
STUDY: X-RAY CHEST REASON FOR EXAM: Female, 58 years old. Hypoxemia. Shortness of breath. TECHNIQUE: Single AP portable view of the chest. COMPARISON: Comparison is made with prior study dated January 07, 2019. FINDINGS: EKG electrodes are seen. Stable elevation of the right hemidiaphragm. Improved aeration of the right midlung. Residual atelectasis at the left lung base although this has improved. There is no demonstrated pleural abnormality. There is borderline cardiomegaly. Normal mediastinum and myriam. Normal visualized pulmonary arteries. There is atherosclerotic tortuosity of the aortic arch and descending thoracic aorta. There is a dextroscoliosis of the thoracic spine. Normal visualized ribs, clavicles, and shoulders. There is no demonstrated abnormality of the visualized soft tissue structures of the upper abdomen. RAD/Chest 1 View IMPRESSION: Improvement in aeration of the right mid lung as well as the left lower lobe. Mild residual changes persist. Electronically Signed: Kamran Velazquez, at 12:23 EDT , Service support ,
--- NOTE | 2019-01-08 10:11 | CASEMGMT ---
Patient has a Healthcare POA and Healthcare LW on file at [facility]. Jina ROGEL RN MEDICAL SURGICAL
--- NOTE | 2019-01-08 10:18 | PCM.PN.HOSP ---
Patient Problems: Active and Suspected Problems (Last Reviewed 01/07/19 @ 18:25 by Bridgette Ivory DO) Thrombocytopenia (Acute) Metabolic acidosis (Acute) ARF (acute renal failure) (Acute) Hyperphosphatemia (Acute) Idiopathic right ventricular dilation (Acute) Hypotension (Acute) COPD (chronic obstructive pulmonary disease) (Suspected) Subjective: Patient had VQ scan in the morning. Mild shortness of breath. Mild tachycardia, heart rate in 100s, regular. Blood pressure in low 100s. Patient also had abdominal pain and had GoLYTELY and scheduled for colonoscopy. BUN/creatinine 41/7.57, FeNA more than 1, urine random sodium 73. Discussed with Dr. Hernandez and Dr. Winkler. Vitals/I&O's: Vital Signs Temp Pulse Resp BP Pulse Ox 97.4 F L 95 18 113/63 98 01/08/19 09:06 01/08/19 09:06 01/08/19 09:06 01/08/19 09:06 01/08/19 09:06 Oxygen Flow Rate (L/min) 2 Oxygen Delivery Method Room Air Weight: 270 lb 8.115 oz Body Mass Index (BMI) 41.1 Intake and Output for Last 24 Hours 01/06/19 01/07/19 01/08/19 23:59 23:59 23:59 Intake Total 2619 / 2619 Balance 2619 / 2619 General: Alert, Oriented x3, Cooperative HEENT: Atraumatic, PERRLA, EOMI, Normocephalic Neck: Supple, No JVD, Negative Carotid Bruits Lungs: Clear to auscultation, No rhonchi, No wheeze, No rales, Diminished Cardiovascular: Regular Rhythm, Normal S1, Normal S2, No murmurs, Tachycardic Abdomen: Bowel Sounds Present, Soft, Non Tender, Non-Distended Extremities: No edema, Capillary Refill Less than 3 Seconds Skin: No rashes, No breakdown Musculoskeletal: No Tenderness to Palpation of Joints or Extremities, Arthritic Changes Neurological: Cranial nerves II-XII grossly intact Psych/Mental Status: Normal Affect, Appropriate Laboratory Results 01/07/19 14:43: Sodium 139, Potassium 4.3, Chloride 105, Carbon Dioxide 23.0, Anion Gap 11, BUN 39 H, Creatinine 7.42 H*, Estim Creat Clear Calc 8.44, Est GFR (MDRD) Af Amer 7 L, Est GFR (MDRD) Non-Af 6 L, BUN/Creatinine Ratio 5.3 L, Glucose 84, Calcium 8.3 L, Total Bilirubin 1.30 H, AST 27, ALT 27, Alkaline Phosphatase 79, Total Protein 6.0 L, Albumin 3.4, Globulin 2.6, Albumin/Globulin Ratio 1.3 01/07/19 14:43: WBC 4.3 L, RBC 3.74 L, Hgb 11.1 L, Hct 35.7 L, MCV 95.5, MCH 29.7, MCHC 31.1 L, RDW Std Deviation 55.5 H, RDW Coeff of Jaun 15.9 H, Plt Count 121 L, MPV 10.5, Immature Gran % (Auto) 0.500, Neut % (Auto) 55.2, Lymph % (Auto) 32.9, [place] % (Auto) 9.1, Eos % (Auto) 2.1, Baso % (Auto) 0.2, Absolute Neuts (auto) 2.4, Absolute Lymphs (auto) 1.41, Nucleated RBC % 0 01/07/19 14:43: Phosphorus 5.9 H, Magnesium 1.7, C-React Prot Ext Range 7.38 H, Rheumatoid Factor < 10.0 01/07/19 14:43: Serum Osmolality 297 H 01/07/19 14:43: ESR 8 01/07/19 14:43: ZOYA Screen Pending, THIERRY-1 Antibody Pending, SS-A/Ro IgG Antibody Pending, SS-B/La IgG Antibody Pending, Sm (Varma) Antibody Pending, [employer]ER Antibody Pending, Scl-70 Scleroderma Ab Pending, Double Strand DNA Ab Pending, Centromere B Antibody Pending 01/07/19 14:43: PT 13.7, INR 1.1, APTT 26.7 01/07/19 15:24: Specimen Type ART, Sample Site L Brachial, pH 7.30 L, Bicarbonate Actual 20.4 L, POC Total CO2 22, Base Excess -6 L, O2 Saturation 93 L, ABG pCO2 41.9, ABG pO2 75, Arian Test NA, O2 Delivery Device Room Air, Blood Gas Notified Whom AILYN CL[place], Blood Gas Notified Time 1500 01/07/19 22:21: Eos Smear Total Cells Pending 01/07/19 22:21: Urine Osmolality 296 01/07/19 22:21: Urine Creatinine 155.00 01/07/19 22:21: Ur Random Sodium 73, Urine Potassium 32.0, Urine Chloride 58 01/07/19 22:21: Urine Color Yellow, Urine Clarity Cloudy, Urine pH 5.0, Ur Specific [place] 1.015, Urine Protein 100 H, Urine Glucose (UA) Normal, Urine Ketones Negative, Urine Occult Blood 25 H, Urine Nitrite Negative, Urine Bilirubin Negative, Urine Urobilinogen Normal, Ur Leukocyte Esterase 100 H, Urine RBC 0 SEEN, Urine WBC 5-10 SEEN, Ur Squamous Epith Cells 0-5 SEEN, Ur Transition Epith Cell 0-5 SEEN, Urine Bacteria 0 SEEN, Urine Mucus 0 SEEN, Urine Yeast RARE 01/08/19 06:40: Sodium 139, Potassium 4.8, Chloride 108 H, Carbon Dioxide 21.0, Anion Gap 10, BUN 41 H, Creatinine 7.57 H*, Estim Creat Clear Calc 8.27, Est GFR (MDRD) Af Amer 7 L, Est GFR (MDRD) Non-Af 6 L, BUN/Creatinine Ratio 5.4 L, Glucose 101, Calcium 7.7 L, Phosphorus 6.9 H, Total Bilirubin 1.10 H, AST 23, ALT 22, Alkaline Phosphatase 70, Total Protein 5.3 L, Albumin 3.0 L, Globulin 2.3, Albumin/Globulin Ratio 1.3 01/08/19 06:40: WBC 3.3 L, RBC 3.41 L, Hgb 10.1 L, Hct 32.3 L, MCV 94.7, MCH 29.6, MCHC 31.3 L, RDW Std Deviation 55.8 H, RDW Coeff of Jaun 16.1 H, Plt Count 98 L, MPV 11.2 Current Medications Acetaminophen (Tylenol) 650 mg PO Q6H PRN PRN PRN Reason: Mild Pain (1-3)/Temp > 100.7 F Albuterol Sulfate (Ventolin Aerosols) 2.5 mg INHALATION Q4H PRN PRN PRN Reason: SHORTNESS OF BREATH Albuterol/Ipratropium (Duoneb) 3 ml INHALATION Q6HWA.RT NINA Atorvastatin Calcium (Lipitor) 80 mg PO QHS NINA Last Admin: 01/07/19 19:46 Dose: 80 mg Documented by: Budesonide (Pulmicort Aerosol) 0.5 mg INHALATION BID.RT NINA Fentanyl Citrate (Sublimaze (100mcg Ampule)) 25 mcg IV Q2H PRN PRN PRN Reason: PAIN Last Admin: 01/08/19 05:44 Dose: 25 mcg Documented by: Sodium Chloride () 1,000 mls @ 150 mls/hr IV .[id number] NINA Last Admin: 01/08/19 05:33 Dose: 150 mls/hr Documented by: Pantoprazole Sodium (Protonix) 40 mg PO DAILY NINA Last Admin: 01/08/19 09:09 Dose: 40 mg Documented by: Prochlorperazine Edisylate (Compazine Iv) 5 mg IV Q6H PRN PRN PRN Reason: NAUSEA/VOMITING Last Admin: 01/08/19 05:44 Dose: 5 mg Documented by: Sodium Chloride () 10 - 40 ml IV UD PRN PRN Reason: SALINE FLUSH Last Admin: 01/08/19 05:44 Dose: 10 ml Documented by: Temazepam (Restoril) 30 mg PO QHS PRN PRN Reason: INSOMNIA Last Admin: 01/07/19 19:48 Dose: 30 mg Documented by: Medical Necessity - Tobacco Use Smoking Status: Former smoker - Quit in 2004 Tobacco Use: Non-smoker Assessment/Plan All Active Problems (Last Reviewed 01/07/19 @ 18:25 by Bridgette Ivory DO) Respiratory failure with hypoxia (Ruled-out) Respiratory insufficiency (Acute) Anemia (Acute) Thrombocytopenia (Acute) Metabolic acidosis (Acute) ARF (acute renal failure) (Acute) Hyperphosphatemia (Acute) Idiopathic right ventricular dilation (Acute) Hypotension (Acute) Sepsis (Resolved) There is a 58-year-old female with history of colitis multiple comorbidities Including obstructive sleep apnea on BiPAP with recent admission for colitis suspect to be secondary to ischemic colitis. Patient continued to have abdominal pain therefore outpatient colonoscopy on 01/07/2019 which was canceled secondary to hypoxia. Patient on 3 L of oxygen. She discharged last time without oxygen. 1. Acute hypoxic respiratory failure: Patient pulse ox 81% on room air in the career consultant. Currently 96% on 2 L of oxygen. ABG 7.30/40 1/75 on room air consistent with increased AA gradient. Furthermore VQ scan was done which reported normal. Patient was also seen by extruder operator multiple. As per extruder operator multiple, patient has severe obstructive sleep apnea and desaturation on sleep study. Patient also has bronchiectasis on CT scan. Patient advised on triple therapy. Does not have significant mucus plugging. Will need outpatient pulmonary function test and walking pulse oximetry prior to discharge. 2. Bronchiectasis, possible COPD: Obstructive sleep apnea possible has hypoxia during sleep: As mentioned above. 3. Acute kidney injury possible ATN, FeNa more than 1% with high urine sodium 73. Dr. Winkler is planning for kidney biopsy. 4. Chronic abdominal pain: Exact etiology unclear, localized colitis in ascending colon: Patient had colonoscopy on 01/08/2019 which showed localized mild inflammation in the mid ascending colon secondary to colitis. 5. Biventricular heart failure, with chronic diastolic heart failure and right ventricular dilatation with mild hypotension: patient had echo done on 01/07/2019 reported as EF 65% with grossly normal left ventricular size, wall motion and systolic function but impaired relaxation of LV suggestive of heart failure with preserved EF. Moderately dilated RV. Moderate global right ventricular systolic dysfunction. Trivial MR, trivial TR. RVSP 33 mmHg. Mild hypotension 6. Liver hemangioma, thrombocytopenia and leukopenia: WBC count is 3.3. H&H 10.1/32.3. Platelet count 98,000. Other comorbidities include hypertension, dyslipidemia, anxiety and depression, former smoker quit in 2004, morbid obesity, DVT prophylaxis: Pharmacological prophylaxis contraindicated. Lateral SCDs Clinical Impression(s) from Imaging Studies Chest X-Ray 01/07/19 12:22 IMPRESSION: Increased markings in the right mid lung as well as at the left lung base suggestive of atelectasis. Renal Ultrasound 01/07/19 16:05 IMPRESSION: Within normal limits ultrasound of the kidneys and urinary bladder. Lung Scan-VQ NM 01/08/19 05:55 IMPRESSION: Normal 99m Tc MAA pulmonary perfusion Tc DTPA aerosol ventilation imaging survey, according to revised PIOPED interpretive criteria. Chest X-Ray 01/08/19 10:00 IMPRESSION: Improvement in aeration of the right mid lung as well as the left lower lobe. Mild residual changes persist. E Code Visit Inpatient E&M: 75960 Subs Hosp L3
[2019-01-08] MEDS: Morphine 2 MG/ML Syringe IV (11:45)
[2019-01-08] MEDS: LORazepam 0.5 MG Tablet PO (11:46)
--- NOTE | 2019-01-08 11:55 | CASEMGMT ---
SIMON LEONARD assessment: Face to Face with patient for initial transition planning/care coordination assessment. SIMON LEONARD introduced self and role at [facility], pt voices understanding and consents to assessment at this time. Pt is sitting up in bed in no distress at this time. Pt is A/Ox4 at this time and answers all questions appropriately at this time. Pt was admitted 12/09-12/13/18 for gi bleeding and dx'd with colitis but did need 2 liters home oxygen at discharge. Pt then returned -12/26/18 for HCAP and abd pain. Pt states that she thought she had been doing well at home but states that her oxygen sats had been increasingly lower when she checked with her finger pulse ox at home. Pt states that she came in yesterday for her endoscopy and her sat was low at that time but states had her portable oxygen with her. Care providers, pharmacy, and demographics verified at this time. PCP: Dean Specialists: Mary, surg; Peterson nephro; geri Padron [facility]erred [facility]acy: [facility], but states would like to use [facility] retail pharmacy at discharge. Insurance: MMO Prescription Benefit: MMO Living Will/HPOA: Pt has LW/HPOA and they are on file at [facility] at this time. Pt's , Seth Felder, is HPOA and daughter, Karely Morris, is secondary . LNOK: Seth Felder, ; Karely Morris, daughter Living Arrangements: Pt states lives with on main level of 1 story home and states no concerns at home at this time. Pt states is independent with ADL's. Transportation: Pt states drives self and states no transportation concerns at this time. DME/HHC: Pt states has the following DME: grab bars, shower chair, BSC, cane, walker, bipap and home oxygen thru [facility]. Pt states is on 2 liters during the day and uses 3 liters bleed in with bipap at night. Pt states does not normally use the BSC, cane, or walker but has for future need. Pt states has had HHC in the past but has not been to SNF. This SIMON LEONARD did place a call to Nafisa at [facility] to inform her of pt being hypoxic when removing bipap in the am and she states to have pt call her when leaving or let them know if will be home and she will send a lumber stacker driver out to check equipment. Pt updated at this time, voices understanding. Pt states no concerns with going home at time of discharge. Pt states is currently unemployed. Pt states does not smoke or drink ETOH. Pt states no further questions/concerns/needs at this time. CM to follow for any further discharge planning/needs. Advised pt to ask for CM if any further questions/concerns/needs arise, voices understanding. Pt Goal: Home Plan: Home Katie MONTES CM
--- NOTE | 2019-01-08 13:00 | COLBX_PTH ---
PATIENT: ALFIE HOGAN LOC: PCU U#:[id number] AGE/SX: 58/F ROOM: [facility] RE01/07/[address]: Dr. Javier Xiao MD : 1960 BED: 1 DIS: 01/11/2019 SPEC #: [id number] RECD: 01/08/19 17:58 STATUS: EMILY REQ #: [id number] ELINA: 01/08/19 13:[address]: Rui Hernandez DEPT: SURGICAL PATHOLOGY RECD BY: Flynn Barnett ENTERED: 01/09/19 08:01 SP TYPE: COLON BX OTHR DR: MD Dr. Melissa Jha DO Dr. Mary Catherine Sementi, DO Dr. Darrell Widmer, MD Dr. Prakash Chand, MD Tissues: A - Ileum, NOS B - Ascending colon Procedures: Surgery Specimen Level IV HEADER OPERATION: Colonoscopy (MAC) PRE-OP DIAGNOSIS: Right lower quadrant pain TISSUE SUBMITTED: A - Terminal ileum biopsy, B - Ascending colon biopsy MICROSCOPIC DIAGNOSIS A. Terminal ileum, biopsy: A fragment of small intestinal mucosa, no pathologic diagnosis. B. Ascending colon, biopsy: Fragments of colonic mucosa with ulceration, acute and chronic inflammation and granulation tissue reaction. Negative for malignancy. See comment. SJ:gail 01/10/19 COMMENT B. Cryptitis, crypt abscess, granular distortion of granulomas are not seen. Correlation with clinical, endoscopic findings and appropriate follow up are necessary. Please make reference to previous specimen ([id number]) ischemic mass, biopsy with diagnosis of fragments of colonic mucosa with extensive necrosis, acute inflammation most likely represents fragments of ulcerated mucosa and no viable mucosa is noted in the specimen. MICROSCOPIC DESCRIPTION Slides are reviewed. GROSS DESCRIPTION A - Received in fixative is one container labeled with the patient's name and designated terminal ileum biopsy. The specimen consists of one irregular fragment of light rose soft tissue that measures 0.3 x 0.3 x 0.1 cm. The specimen is totally submitted in one cassette. B - Received in fixative is one container labeled with the patient's name and designated ascending colon biopsy. The specimen consists of multiple irregular fragments of light rose soft tissue that in aggregate measure 0.5 x 0.5 x 0.1 cm. The specimen is totally submitted in one cassette. / SJ:rg 01/09/19 TC:2 CPT: 59541 x2
[2019-01-08] MEDS: Budesonide Respules 0.5 MG/2 ML AMPUL.NEB. INHALATION ×2 (13:57→19:51)
[2019-01-08] MEDS: Albuterol 2.5 MG/3 ML VIAL.NEB. INHALATION (13:57)
[2019-01-08] MEDS: HYDROmorphone 0.5 MG/0.5 ML SYRINGE IV ×3 (14:36→23:22)
--- NOTE | 2019-01-08 15:41 | NURSING ---
1530-pt again back on for colonoscopy. report called to endo to price anderson. pt tearful but reassured by this rn. reports that iv dilaudid helpful with pt's pain. remains on ra and sats high 90's all shift.
--- NOTE | 2019-01-08 16:13 | OP.ENDO_ITS ---
01/08/2019 Karl Moran Re : Colonoscopy procedure for Shanda Felder Dear Dean This procedure was performed on Tuesday, January 08, 2019. My impressions and recommendations are as follows: Impressions : - The examined portion of the ileum was normal. Biopsied. - Localized mild inflammation was found in the mid ascending colon secondary to colitis. Biopsied. - A tattoo was seen in the mid ascending colon. - The examination was otherwise normal. Recommendations : - Return patient to [facility] for [facility] care. - Resume previous diet. - Repeat colonoscopy is recommended. The colonoscopy date will be determined after pathology results from today's exam become available for review. - Continue present medications. My findings are described in the full procedure note, which is enclosed. If I can be of further assistance, please feel free to contact me at Doctor phone number(s): , Work: . Sincerely, Rui Hernandez MD 01/08/2019 4:13:18 PM This report has been signed electronically.
--- NOTE | 2019-01-08 17:50 | PCM.PN.SRG ---
Patient Problems: Active and Suspected Problems (Last Reviewed 01/07/19 @ 18:25 by Bridgette Ivory DO) Thrombocytopenia (Acute) Metabolic acidosis (Acute) ARF (acute renal failure) (Acute) Hyperphosphatemia (Acute) Idiopathic right ventricular dilation (Acute) Hypotension (Acute) COPD (chronic obstructive pulmonary disease) (Suspected) Subjective: still RLQ pain - Physical Exam General: Alert, Oriented x3 Lungs: Clear to auscultation, Normal air movement Cardiovascular: Regular rate, Regular Rhythm Abdomen: Bowel Sounds Present, Soft, Tender - RLQ mild Vital Signs Temp Pulse Resp BP Pulse Ox 97.7 F L 102 H 16 98/68 96 01/08/19 16:41 01/08/19 16:41 01/08/19 16:41 01/08/19 16:41 01/08/19 16:41 Oxygen Flow Rate (L/min) 2 Oxygen Delivery Method Nasal Cannula Weight: 122.7 kg Body Mass Index (BMI) 41.1 Intake and Output for Last 24 Hours 01/06/19 01/07/19 01/08/19 23:59 23:59 23:59 Intake Total 3679 / 3679 Output Total 800 / 800 Balance 2879 / 2879 Laboratory Tests Past 24 Hrs 01/07/19 01/07/19 01/07/19 22:21 22:21 22:21 WBC RBC Hgb Hct MCV MCH MCHC RDW Std Deviation RDW Coeff of Jaun Plt Count MPV Eos Smear Total Cells Pending Sodium Potassium Chloride Carbon Dioxide Anion Gap BUN Creatinine Estim Creat Clear Calc Est GFR (MDRD) Af Amer Est GFR (MDRD) Non-Af BUN/Creatinine Ratio Glucose Calcium Phosphorus Total Bilirubin AST ALT Alkaline Phosphatase Total Protein Albumin Globulin Albumin/Globulin Ratio Urine Color Urine Clarity Urine pH Ur Specific [place] Urine Protein Urine Glucose (UA) Urine Ketones Urine Occult Blood Urine Nitrite Urine Bilirubin Urine Urobilinogen Ur Leukocyte Esterase Urine RBC Urine WBC Ur Squamous Epith Cells Ur Transition Epith Cell Urine Bacteria Urine Mucus Urine Yeast Urine Osmolality 296 Ur Random Sodium Urine Creatinine 155.00 Urine Potassium Urine Chloride 01/07/19 01/07/19 01/08/19 22:21 22:21 06:40 WBC RBC Hgb Hct MCV MCH MCHC RDW Std Deviation RDW Coeff of Jaun Plt Count MPV Eos Smear Total Cells Sodium 139 Potassium 4.8 Chloride 108 H Carbon Dioxide 21.0 Anion Gap 10 BUN 41 H Creatinine 7.57 H* Estim Creat Clear Calc 8.27 Est GFR (MDRD) Af Amer 7 L Est GFR (MDRD) Non-Af 6 L BUN/Creatinine Ratio 5.4 L Glucose 101 Calcium 7.7 L Phosphorus 6.9 H Total Bilirubin 1.10 H AST 23 ALT 22 Alkaline Phosphatase 70 Total Protein 5.3 L Albumin 3.0 L Globulin 2.3 Albumin/Globulin Ratio 1.3 Urine Color Yellow Urine Clarity Cloudy Urine pH 5.0 Ur Specific [place] 1.015 Urine Protein 100 H Urine Glucose (UA) Normal Urine Ketones Negative Urine Occult Blood 25 H Urine Nitrite Negative Urine Bilirubin Negative Urine Urobilinogen Normal Ur Leukocyte Esterase 100 H Urine RBC 0 SEEN Urine WBC 5-10 SEEN Ur Squamous Epith Cells 0-5 SEEN Ur Transition Epith Cell 0-5 SEEN Urine Bacteria 0 SEEN Urine Mucus 0 SEEN Urine Yeast RARE Urine Osmolality Ur Random Sodium 73 Urine Creatinine Urine Potassium 32.0 Urine Chloride 58 01/08/19 06:40 WBC 3.3 L RBC 3.41 L Hgb 10.1 L Hct 32.3 L MCV 94.7 MCH 29.6 MCHC 31.3 L RDW Std Deviation 55.8 H RDW Coeff of Jaun 16.1 H Plt Count 98 L MPV 11.2 Eos Smear Total Cells Sodium Potassium Chloride Carbon Dioxide Anion Gap BUN Creatinine Estim Creat Clear Calc Est GFR (MDRD) Af Amer Est GFR (MDRD) Non-Af BUN/Creatinine Ratio Glucose Calcium Phosphorus Total Bilirubin AST ALT Alkaline Phosphatase Total Protein Albumin Globulin Albumin/Globulin Ratio Urine Color Urine Clarity Urine pH Ur Specific [place] Urine Protein Urine Glucose (UA) Urine Ketones Urine Occult Blood Urine Nitrite Urine Bilirubin Urine Urobilinogen Ur Leukocyte Esterase Urine RBC Urine WBC Ur Squamous Epith Cells Ur Transition Epith Cell Urine Bacteria Urine Mucus Urine Yeast Urine Osmolality Ur Random Sodium Urine Creatinine Urine Potassium Urine Chloride Medical Necessity - Tobacco Use Smoking Status: Former smoker - Quit in 2004 Tobacco Use: Non-smoker Assessment/Plan All Active Problems (Last Reviewed 01/07/19 @ 18:25 by Bridgette Ivory DO) Respiratory failure with hypoxia (Ruled-out) Respiratory insufficiency (Acute) Anemia (Acute) Thrombocytopenia (Acute) Metabolic acidosis (Acute) ARF (acute renal failure) (Acute) Hyperphosphatemia (Acute) Idiopathic right ventricular dilation (Acute) Hypotension (Acute) Sepsis (Resolved) Shanda Felder is a 58-year-old female with a complex constellation of symptoms. #1 - right lower quadrant pain, colitis patient underwent initial colonoscopy on December 10 which demonstrated a very short segment half circumference of the intestine of significantly advanced colitis with necrotic tissue. The patient underwent repeat colonoscopy today since she had been bowel prepped 2 days previously. Endoscopy currently demonstrates a normal-appearing terminal ileum a normal-appearing cecal base and significant healing of the short segment of advanced colitis. There was what appeared to be some scarring and firmness in the area. Biopsies were obtained and the site bled this time. This is consistent with healing segmental colitis. Biopsies were obtained and are currently pending for pathology. stool cultures from December 23 were negative for enteric pathogens but positive for lactoferrin and occult blood. The length and partial circumference of this abnormality makes me doubt true infectious etiology. Normal-appearing terminal ileum and the location makes me question a small ischemic segment possibly due to thrombosis or hypercoagulable state. Doubt atherosclerotic changes or large emboli given the fact that the cecal base was uninvolved. #2 - hypoxia, questionable lower lobe pneumonia versus bronchiectasis-patient's complaint of shortness of breath for the past few months. She's had episodes of saturations ranging from 70% on 3 L to the upper 90% on room air. She had a negative CT angiogram ruling out PE last month. She's had chest x-rays and CT scans of the chest. Currently Dr. Sam Padron is on board. Patient's saturation was improved today with her saturation on room air prior to endoscopy in the 90% range. #3 - acute renal failure.-Patient was found to have a significant waist creatinine compared to her previous studies. Her creatinine at the [facility] on December 16 was 0.87. Admitting on December 23 was 0.3. Creatinine on admission yesterday was 7.42. nephrology on consult. Urinalysis and urine electrolytes obtained. Patient currently with G[place] catheter in place measuring strict ins and outs. Urine output was 550 cc from noon to 5 PM. #4 - leukopenia now mild thrombocytopenia. Patient's white blood cell count has been low with each measurement since December. the patient noted her combination of shortness of breath, some fatigue and oral viral type sores for the past few months. My initial consideration was this was a viral etiology, now question autoimmune disorder.
[2019-01-08] MEDS: Ipratropium/Albuterol Sulfate 3 ML AMPUL.NEB INHALATION (19:51)
--- NOTE | 2019-01-08 21:10 | NURSING ---
Called Emilee Lal of [place] to verify when patient has last filled her Restoril prescription. Emilee Lal stated she filled it on 01/03/19. Discussed with patient that it is okay to order if filled within last 30 days. She also had a mychart for her prescriptions and also verified it was last filled on 01/03/19.
--- NOTE | 2019-01-08 21:18 | CPS ---
Addendum entered and electronically signed by Sachin Walden 01/08/19 21:52: 3L bled in per pts. home regimen Original Note: Pts' home PAP unit setup and placed on pt. Water chamber filled.
[2019-01-08] MEDS: Atorvastatin Calcium 80 MG Tablet PO (23:20)
[2019-01-08] MEDS: Temazepam 15 MG Capsule 30 MG PO (23:22)
[2019-01-09] VITALS (14 sets, daily range): BP systolic 99–121; BP diastolic 53–80; PULSE 85–121; RESP 14–20; TEMP 36.4–37.3; O2SAT 93–97
[2019-01-09] MEDS: 0.9% Normal Saline 1,000 ML 150 ML IV (01:08)
[2019-01-09] MEDS: Albuterol 2.5 MG/3 ML VIAL.NEB. INHALATION (03:17)
[2019-01-09] MEDS: HYDROmorphone 0.5 MG/0.5 ML SYRINGE IV (04:05)
[2019-01-09] MEDS: 0.9% NaCl Peripheral Flush Adult/Peds IV ×2 (04:07→13:11)
[2019-01-09 05:06] LABS: Hematocrit 31.2 % (37-47); Hemoglobin 9.6 g/dL (12.0-15.0); Mean Corp Hgb Conc 30.8 g/dL (32-36); Mean Corpuscular Hgb 29.6 pg (27.0-32.0); Mean Corpuscular Volume 96.3 fL (81-99); Mean Platelet Vol. 10.1 fl (6.2-12.0); Platelet Count 98 K/mm3 (150-450); RBC Distribution Width CV 15.9 % (11.6-14.6); RBC Distribution Width SD 56.3 fl (35.1-43.9); Red Blood Count 3.24 M/mm3 (4.2-5.4); White Blood Count 3.1 K/mm3 (4.4-11.0)
[2019-01-09 05:21] LABS: Anion Gap 10 (5-15); BUN 37 mg/dL (7-18); BUN/Creat Ratio 5.4 RATIO (10-20); Calcium,Total 7.8 mg/dL (8.5-10.1); Chloride 112 mmol/L (98-107); Creatinine, Serum 6.81 mg/dL (0.55-1.02); EST Glomerular Filtration Rate 7 mL/min (>60); Est Glom Filt Rate - Afr Amer 8 mL/min (>60); Estimated Creatinine Clearance 9.19 ml/min; Glucose 118 mg/dL (74-106); Potassium 4.2 mmol/L (3.5-5.1); Sodium Level 143 mmol/L (136-145)
[2019-01-09] MEDS: Budesonide Respules 0.5 MG/2 ML AMPUL.NEB. INHALATION ×2 (07:08→18:57)
[2019-01-09] MEDS: Ipratropium/Albuterol Sulfate 3 ML AMPUL.NEB INHALATION ×3 (07:08→18:57)
--- NOTE | 2019-01-09 08:34 | PN_ITS ---
Patient Problems: Active and Suspected Problems (Last Reviewed 01/07/19 @ 18:25 by Bridgette Ivory DO) Thrombocytopenia (Acute) Metabolic acidosis (Acute) ARF (acute renal failure) (Acute) Hyperphosphatemia (Acute) Idiopathic right ventricular dilation (Acute) Hypotension (Acute) COPD (chronic obstructive pulmonary disease) (Suspected) Subjective: Patient did okay overnight. Patient reports no subjective change in overall condition. Patient continues to require minimal nasal cannula oxygen to maintain appropriate saturations at rest. Patient was compliant with BiPAP therapy overnight. - Physical Exam General: Alert, Oriented x3, Cooperative, No apparent distress, - - Still anxious, but appears improved. Morbidly obese. HEENT: Atraumatic, PERRLA, EOMI, Normocephalic, - - No scleral icterus or injection noted. Oral: Moist Mucosa, No Gingival or Mucosal Lesions/ Ulcerations Neck: Supple, No JVD, No Nodes, Trachea Midline Lungs: No rhonchi, No wheeze, No rales, Diminished, - - Symmetric expansion. No dullness to percussion. Cardiovascular: Regular rate, Regular Rhythm, Normal S1, Normal S2, No murmurs, No rub noted, No Gallop Abdomen: Bowel Sounds Present, Soft, Non Tender, Non-Distended, Obese Extremities: No clubbing, No cyanosis, Capillary Refill Less than 3 Seconds, Edema - 1+ anasarca noted Skin: No rashes, No breakdown Musculoskeletal: No Tenderness to Palpation of Joints or Extremities Lymphatic: No Cervical, Supraclavicular, or Inguinal Adenopathy Neurological: Cranial nerves II-XII grossly intact, Neuro grossly intact, Motor Exam 5/5 strength throughout Psych/Mental Status: Alert and oriented to time, place, person, mood and affect Vital Signs Temp Pulse Resp BP Pulse Ox 36.4 C L 98 20 H 121/63 H 96 01/09/19 03:00 01/09/19 07:08 01/09/19 07:08 01/09/19 03:00 01/09/19 07:08 Oxygen Flow Rate (L/min) 2 Oxygen Delivery Method Nasal Cannula Weight: 122.7 kg Body Mass Index (BMI) 41.1 Intake and Output for Last 24 Hours 01/07/19 01/08/19 01/09/19 23:59 23:59 23:59 Intake Total 7181 / 7181 825 / 825 Output Total 2049 625 / 625 Balance 5131 / 5131 200 / 200 Laboratory Tests Past 24 Hrs 01/09/19 01/09/19 04:52 04:52 WBC 3.1 L RBC 3.24 L Hgb 9.6 L Hct 31.2 L MCV 96.3 MCH 29.6 MCHC 30.8 L RDW Std Deviation 56.3 H RDW Coeff of Jaun 15.9 H Plt Count 98 L MPV 10.1 Sodium 143 Potassium 4.2 Chloride 112 H Carbon Dioxide 21.0 Anion Gap 10 BUN 37 H Creatinine 6.81 H Estim Creat Clear Calc 9.19 Est GFR (MDRD) Af Amer 8 L Est GFR (MDRD) Non-Af 7 L BUN/Creatinine Ratio 5.4 L Glucose 118 H Calcium 7.8 L Clinical Impression(s) from Imaging Studies Lung Scan-VQ NM 01/08/19 05:55 IMPRESSION: Normal 99m Tc MAA pulmonary perfusion Tc DTPA aerosol ventilation imaging survey, according to revised PIOPED interpretive criteria. Electronically Signed: Kamran Velazquez, at 11:27 EDT , Service support , Chest X-Ray 01/08/19 10:00 IMPRESSION: Improvement in aeration of the right mid lung as well as the left lower lobe. Mild residual changes persist. Electronically Signed: Kamran Velazquez, at 12:23 EDT , Service support , Medical Necessity - Tobacco Use Smoking Status: Former smoker - Quit in 2004 Tobacco Use: Non-smoker Assessment/Plan All Active Problems (Last Reviewed 01/07/19 @ 18:25 by Bridgette Ivory DO) Respiratory failure with hypoxia (Ruled-out) Respiratory insufficiency (Acute) Anemia (Acute) Thrombocytopenia (Acute) Metabolic acidosis (Acute) ARF (acute renal failure) (Acute) Hyperphosphatemia (Acute) Idiopathic right ventricular dilation (Acute) Hypotension (Acute) Sepsis (Resolved) RECOMMENDATIONS: 1. Walking oximetry prior to discharge 2. Initiate triple inhalation therapy 3. Await renal recommendations 4. Continue baseline BiPAP therapy 7. Outpatient complete PFT and polysomnogram 8. Walking oximetry prior to discharge IMPRESSIONS: 1. Hypoxemia Patient has required minimal nasal cannula oxygen overnight to maintain saturations. Patient may still have an element of pulmonary hypertension secondary to chronic hypoxemia with sleep. Will need to watch patient's fluid status closely. Cannot exclude air trapping with desaturation secondary to underlying chronic bronchitis/bronchiectasis. Will place patient on triple therapy and see if this helps her overall condition. Pulmonary hypertension is not very impressive by echocardiogram, but patient does have RV dysfunction. Walking oximetry prior to discharge 2. Obstructive sleep apnea Patient with severe obstructive sleep apnea and desaturation on sleep study. Unclear if patient is persisting and hypoxemia overnight. Patient should continue on continuous pulse ox. If patient has significant desaturations while on home BiPAP, she could be transition to AVAPS with titration of oxygen appropriately. 3. Bronchiectasis New diagnosis. Patient does not appear to have significant mucus plugging at this time. Could initiate Acapella therapy. Patient does have some wheezing on exam and may benefit from empiric bronchodilator therapy. Unclear if patient truly requires steroid therapy. Patient should have a complete pulmonary f unction test as an outpatient. Patient should have a walking oximetry prior to discharge. 4. Acute renal failure Possible prerenal etiology, but BUN/creatinine ratio was not suggestive. Nephrology has been consulted. No indication for urgent renal replacement therapy. Autoimmune work-up is currently pending. Renal function is somewhat improved compared to yesterday. Hopefully patient achieves diuretic phase of ATN and is able to improve fluid status. 5. Pancytopenia/recent colitis/morbid obesity/liver hemangioma/anxiety/depression/history of smoking Complicates care, management, recovery and prognosis. May consider hematology evaluation if autoimmune panel is negative Code Visit Inpatient E&M: 08523 Subs Hosp L2
[2019-01-09] MEDS: 0.9% Normal Saline 1,000 ML 75 ML IV ×2 (08:43→17:33)
[2019-01-09] MEDS: Pantoprazole Sodium 40 MG Tablet PO (08:43)
--- NOTE | 2019-01-09 11:24 | PCM.PN.HOSP ---
Patient Problems: Active and Suspected Problems (Last Reviewed 01/07/19 @ 18:25 by Bridgette Ivory DO) Thrombocytopenia (Acute) Metabolic acidosis (Acute) ARF (acute renal failure) (Acute) Hyperphosphatemia (Acute) Idiopathic right ventricular dilation (Acute) Hypotension (Acute) COPD (chronic obstructive pulmonary disease) (Suspected) Subjective: Overall, patient has heart rate in 100s. Blood pressure in the 110s. 93% on 2 L of oxygen. Patient complain of bloating sensation and mild abdominal upset. Gongora catheter shows clear urine with 1/occasional farzana. Kidney function is improving. Discussed with Dr. Winkler. Vitals/I&O's: Vital Signs Temp Pulse Resp BP Pulse Ox 97.6 F L 98 20 H 121/63 H 96 01/09/19 03:00 01/09/19 07:08 01/09/19 07:08 01/09/19 03:00 01/09/19 07:08 Oxygen Flow Rate (L/min) 2 Oxygen Delivery Method Nasal Cannula Weight: 270 lb 8.115 oz Body Mass Index (BMI) 41.1 Intake and Output for Last 24 Hours 01/07/19 01/08/19 01/09/19 23:59 23:59 23:59 Intake Total 7181 / 7181 825 / 825 Output Total 2049 / 2049 625 / 625 Balance 5131 / 5131 200 / 200 General: Alert, Oriented x3, Cooperative HEENT: Atraumatic, PERRLA, EOMI, Normocephalic Neck: Supple, No JVD, Negative Carotid Bruits Lungs: No rhonchi, No wheeze, No rales, Diminished - Air entry is diminished most probably from obesity Cardiovascular: Regular rate, Regular Rhythm, Normal S1, Normal S2, No murmurs Abdomen: Bowel Sounds Present, Soft, Non-Distended, Tender - Mild tenderness on right side of abdomen Extremities: Capillary Refill Less than 3 Seconds, Edema Skin: No rashes, No breakdown Musculoskeletal: No Tenderness to Palpation of Joints or Extremities, Arthritic Changes Neurological: Cranial nerves II-XII grossly intact Psych/Mental Status: Normal Affect, Appropriate Laboratory Results 01/09/19 04:52: WBC 3.1 L, RBC 3.24 L, Hgb 9.6 L, Hct 31.2 L, MCV 96.3, MCH 29.6, MCHC 30.8 L, RDW Std Deviation 56.3 H, RDW Coeff of Jaun 15.9 H, Plt Count 98 L, MPV 10.1 01/09/19 04:52: Sodium 143, Potassium 4.2, Chloride 112 H, Carbon Dioxide 21.0, Anion Gap 10, BUN 37 H, Creatinine 6.81 H, Estim Creat Clear Calc 9.19, Est GFR (MDRD) Af Amer 8 L, Est GFR (MDRD) Non-Af 7 L, BUN/Creatinine Ratio 5.4 L, Glucose 118 H, Calcium 7.8 L Current Medications Acetaminophen (Tylenol) 650 mg PO Q6H PRN PRN PRN Reason: Mild Pain (1-3)/Temp > 100.7 F Albuterol Sulfate (Ventolin Aerosols) 2.5 mg INHALATION Q4H PRN PRN PRN Reason: SHORTNESS OF BREATH Last Admin: 01/09/19 03:17 Dose: 2.5 mg Documented by: Albuterol/Ipratropium (Duoneb) 3 ml INHALATION Q6HWA.RT [facility] Last Admin: 01/09/19 07:08 Dose: 3 ml Documented by: Atorvastatin Calcium (Lipitor) 80 mg PO QHS [facility] Last Admin: 01/08/19 23:20 Dose: 80 mg Documented by: Budesonide (Pulmicort Aerosol) 0.5 mg INHALATION BID.RT [facility] Last Admin: 01/09/19 07:08 Dose: 0.5 mg Documented by: Sodium Chloride () 1,000 mls @ 75 mls/hr IV .[id number] [facility] Last Admin: 01/09/19 08:43 Dose: 75 mls/hr Documented by: Lorazepam (Ativan) 0.5 mg PO Q8H PRN PRN PRN Reason: severe anxiety Last Admin: 01/08/19 11:46 Dose: 0.5 mg Documented by: Morphine Sulfate () 2 mg IV Q3H PRN PRN PRN Reason: MODERATE PAIN (4-5/10) Morphine Sulfate () 4 mg IV Q3H PRN PRN PRN Reason: SEVERE PAIN (6-10/10) Pantoprazole Sodium (Protonix) 40 mg PO DAILY [facility] Last Admin: 01/09/19 08:43 Dose: 40 mg Documented by: Prochlorperazine Edisylate (Compazine Iv) 5 mg IV Q6H PRN PRN PRN Reason: NAUSEA/VOMITING Last Admin: 01/08/19 18:40 Dose: 5 mg Documented by: Sodium Chloride () 10 - 40 ml IV UD PRN PRN Reason: SALINE FLUSH Last Admin: 01/09/19 04:07 Dose: 10 ml Documented by: Temazepam (Restoril) 30 mg PO QHS PRN PRN Reason: SLEEP Last Admin: 01/08/19 23:22 Dose: 30 mg Documented by: Medical Necessity - Tobacco Use Smoking Status: Former smoker - Quit in 2004 Tobacco Use: Non-smoker Assessment/Plan All Active Problems (Last Reviewed 01/07/19 @ 18:25 by Bridgette Ivory DO) Respiratory failure with hypoxia (Ruled-out) Respiratory insufficiency (Acute) Anemia (Acute) Thrombocytopenia (Acute) Metabolic acidosis (Acute) ARF (acute renal failure) (Acute) Hyperphosphatemia (Acute) Idiopathic right ventricular dilation (Acute) Hypotension (Acute) Sepsis (Resolved) There is a 58-year-old female with history of colitis multiple comorbidities Including obstructive sleep apnea on BiPAP with recent admission for colitis suspect to be secondary to ischemic colitis. Patient continued to have abdominal pain therefore outpatient colonoscopy on 01/07/2019 which was canceled secondary to hypoxia. Patient on 3 L of oxygen. She discharged last time without oxygen. 1. Acute hypoxic respiratory failure: Patient pulse ox 81% on room air in the respiratory care technician. Currently 96% on 2 L of oxygen. ABG 7.30/40 1/75 on room air consistent with increased AA gradient. Furthermore VQ scan was done which reported normal. Patient was also seen by electroencephalographic technician. As per electroencephalographic technician, patient has severe obstructive sleep apnea and desaturation on sleep study. Patient also has bronchiectasis on CT scan. Patient advised on triple therapy. Does not have significant mucus plugging. Patient need further mobilization and PT and OT. Will need outpatient pulmonary function test and walking pulse oximetry prior to discharge. 2. Bronchiectasis, possible COPD: Obstructive sleep apnea possible has hypoxia during sleep: As mentioned above. 3. Acute kidney injury possible ATN, FeNa more than 1% with high urine sodium 73. First time, the kidney function is improved. BUN/creatinine 37/6.81. Electrolytes within normal limit except chloride 112. Bicarb 21. Anion gap 10. 4. Chronic abdominal pain: Exact etiology unclear, localized colitis in ascending colon: Patient had colonoscopy on 01/08/2019 which showed localized mild inflammation in the mid ascending colon secondary to colitis. 5. Biventricular heart failure, with chronic diastolic heart failure and right ventricular dilatation with mild hypotension: patient had echo done on 01/07/2019 reported as EF 65% with grossly normal left ventricular size, wall motion and systolic function but impaired relaxation of LV suggestive of heart failure with preserved EF. Moderately dilated RV. Moderate global right ventricular systolic dysfunction. Trivial MR, trivial TR. RVSP 33 mmHg. Mild hypotension 6. Liver hemangioma, thrombocytopenia and leukopenia: WBC count is 3.3. H&H 10.1/32.3. Platelet count 98,000. Patient has mild leukopenia, WBC count average 2.4k and thrombocytopenia average 100,000 since December 2018. Exact cause of leukopenia and thrombocytopenia unclear. Possible related to acute kidney injury or chronic disease. She underwent right upper quadrant sonogram on 12/23/2018. Reported as normal echogenicity of liver, 17.9 cm. Bile ducts within normal limit. 1.4 x 1.6 cm hypoechoic mass in left hepatic lobe represent hemangioma. Other comorbidities include hypertension, dyslipidemia, anxiety and depression, former smoker quit in 2004, morbid obesity, DVT prophylaxis: Pharmacological prophylaxis contraindicated. Lateral SCDs Clinical Impression(s) from Imaging Studies Chest X-Ray 01/07/19 12:22 IMPRESSION: Increased markings in the right mid lung as well as at the left lung base suggestive of atelectasis. Renal Ultrasound 01/07/19 16:05 IMPRESSION: Within normal limits ultrasound of the kidneys and urinary bladder. Lung Scan-VQ NM 01/08/19 05:55 IMPRESSION: Normal 99m Tc MAA pulmonary perfusion Tc DTPA aerosol ventilation imaging survey, according to revised PIOPED interpretive criteria. Chest X-Ray 01/08/19 10:00 IMPRESSION: Improvement in aeration of the right mid lung as well as the left lower lobe. Mild residual changes persist. E Code Visit Inpatient E&M: 09308 [facility] Hosp L3
--- NOTE | 2019-01-09 11:53 | PCM.PN.REN ---
Patient Problems: Active and Suspected Problems (Last Reviewed 01/07/19 @ 18:25 by Bridgette Ivory DO) Thrombocytopenia (Acute) Metabolic acidosis (Acute) ARF (acute renal failure) (Acute) Hyperphosphatemia (Acute) Idiopathic right ventricular dilation (Acute) Hypotension (Acute) COPD (chronic obstructive pulmonary disease) (Suspected) Subjective: underwent colonoscopy last night. BP stable. Creatinine improving today with good UOP. Tolerating diet. RLQ abdominal pain improving. Denies SOB. Nausea improved. - Physical Exam General: Alert, Oriented x3, Cooperative, No apparent distress, - - up to chair Neck: Supple Lungs: Clear to auscultation Cardiovascular: Regular rate, No rub noted Abdomen: Bowel Sounds Present, Soft, Obese Extremities: No edema Neurological: Cranial nerves II-XII grossly intact, - - no tremor Psych/Mental Status: Appropriate, Alert and oriented to time, place, person, mood and affect Vital Signs Temp Pulse Resp BP Pulse Ox 99.2 F H 104 H 18 99/53 L 96 01/09/19 10:00 01/09/19 10:00 01/09/19 10:00 01/09/19 10:00 01/09/19 10:00 Oxygen Flow Rate (L/min) 2 Oxygen Delivery Method Nasal Cannula Weight: 122.7 kg Body Mass Index (BMI) 41.1 Intake and Output for Last 24 Hours 01/07/19 01/08/19 01/09/19 23:59 23:59 23:59 Intake Total 7181 / 7181 825 / 825 Output Total 2049 / 2049 625 / 625 Balance 5131 / 5131 200 / 200 Laboratory Tests Past 24 Hrs 01/09/19 01/09/19 04:52 04:52 WBC 3.1 L RBC 3.24 L Hgb 9.6 L Hct 31.2 L MCV 96.3 MCH 29.6 MCHC 30.8 L RDW Std Deviation 56.3 H RDW Coeff of Jaun 15.9 H Plt Count 98 L MPV 10.1 Sodium 143 Potassium 4.2 Chloride 112 H Carbon Dioxide 21.0 Anion Gap 10 BUN 37 H Creatinine 6.81 H Estim Creat Clear Calc 9.19 Est GFR (MDRD) Af Amer 8 L Est GFR (MDRD) Non-Af 7 L BUN/Creatinine Ratio 5.4 L Glucose 118 H Calcium 7.8 L Medical Necessity - Tobacco Use Smoking Status: Former smoker - Quit in 2004 Tobacco Use: Non-smoker Assessment/Plan All Active Problems (Last Reviewed 01/07/19 @ 18:25 by Bridgette Ivory DO) Respiratory failure with hypoxia (Ruled-out) Respiratory insufficiency (Acute) Anemia (Acute) Thrombocytopenia (Acute) Metabolic acidosis (Acute) ARF (acute renal failure) (Acute) Hyperphosphatemia (Acute) Idiopathic right ventricular dilation (Acute) Hypotension (Acute) Sepsis (Resolved) 1. Acute kidney injury suspect ischemic ATN, FeNa >1%. Creatinine improvedt o 6.8 today with good UOP. Decrease iv fluid rate. Hold on kidney biopsy. No need for dialysis today. Baseline creatinine 0.8. Renal US unremarkable. Doubt vasculitis based on bland urine sediment. Await serologies. Continue to monitor renal fxn. 2. Hyperphosphatemia, should improve as renal fxn improves. Hold on binders for now 3. RLQ abdominal pain s/p colonoscopy yesterday. 4. Hypotension resolved 5. Morbid obesity on BIPAP at home. pulmonary following 6. anemia monitor hgb. DW primary service.
[2019-01-09] MEDS: Morphine 4 MG/ML Syringe IV ×3 (13:11→21:30)
[2019-01-09] MEDS: LORazepam 0.5 MG Tablet PO (15:14)
--- NOTE | 2019-01-09 20:42 | PCM.PN.SRG ---
Patient Problems: Active and Suspected Problems (Last Reviewed 01/07/19 @ 18:25 by Bridgette Ivory DO) Thrombocytopenia (Acute) Metabolic acidosis (Acute) ARF (acute renal failure) (Acute) Hyperphosphatemia (Acute) Idiopathic right ventricular dilation (Acute) Hypotension (Acute) COPD (chronic obstructive pulmonary disease) (Suspected) Subjective: less right lower quadrant pain this morning, - Physical Exam General: Alert, Oriented x3, Cooperative Lungs: Clear to auscultation, Normal air movement Cardiovascular: Regular rate, Regular Rhythm Abdomen: Bowel Sounds Present, Soft, Tender - RLQ - minimal Vital Signs Temp Pulse Resp BP Pulse Ox 98.6 F 105 H 18 107/54 L 96 01/09/19 17:24 01/09/19 18:59 01/09/19 18:57 01/09/19 17:24 01/09/19 17:24 Oxygen Flow Rate (L/min) 2 Oxygen Delivery Method Room Air Weight: 122.7 kg Body Mass Index (BMI) 41.1 Intake and Output for Last 24 Hours 01/07/19 01/08/19 01/09/19 23:59 23:59 23:59 Intake Total 7181 / 7181 2547.4 / 2547.4 Output Total 2049 / 2049 1275 / 1275 Balance 5131 / 5131 1272.4 / 1272.4 Laboratory Tests Past 24 Hrs 01/09/19 01/09/19 04:52 04:52 WBC 3.1 L RBC 3.24 L Hgb 9.6 L Hct 31.2 L MCV 96.3 MCH 29.6 MCHC 30.8 L RDW Std Deviation 56.3 H RDW Coeff of Jaun 15.9 H Plt Count 98 L MPV 10.1 Sodium 143 Potassium 4.2 Chloride 112 H Carbon Dioxide 21.0 Anion Gap 10 BUN 37 H Creatinine 6.81 H Estim Creat Clear Calc 9.19 Est GFR (MDRD) Af Amer 8 L Est GFR (MDRD) Non-Af 7 L BUN/Creatinine Ratio 5.4 L Glucose 118 H Calcium 7.8 L Medical Necessity - Tobacco Use Smoking Status: Former smoker - Quit in 2004 Tobacco Use: Non-smoker Assessment/Plan All Active Problems (Last Reviewed 01/07/19 @ 18:25 by Bridgette Ivory DO) Respiratory failure with hypoxia (Ruled-out) Respiratory insufficiency (Acute) Anemia (Acute) Thrombocytopenia (Acute) Metabolic acidosis (Acute) ARF (acute renal failure) (Acute) Hyperphosphatemia (Acute) Idiopathic right ventricular dilation (Acute) Hypotension (Acute) Sepsis (Resolved) Shanda Felder is a 58-year-old female with a complex constellation of symptoms. #1 - right lower quadrant pain, colitis patient underwent initial colonoscopy on December 10 which demonstrated a very short segment half circumference of the intestine of significantly advanced colitis with necrotic tissue. The patient underwent repeat colonoscopy today since she had been bowel prepped 2 days previously. Endoscopy currently demonstrates a normal-appearing terminal ileum a normal-appearing cecal base and significant healing of the short segment of advanced colitis. There was what appeared to be some scarring and firmness in the area. Biopsies were obtained and the site bled this time. This is consistent with healing segmental colitis. Biopsies were obtained and are currently pending for pathology. stool cultures from December 23 were negative for enteric pathogens but positive for lactoferrin and occult blood. The length and partial circumference of this abnormality makes me doubt true infectious etiology. Normal-appearing terminal ileum and the location makes me question a small ischemic segment possibly due to thrombosis or hypercoagulable state. Doubt atherosclerotic changes or large emboli given the fact that the cecal base was uninvolved. #2 - hypoxia, questionable lower lobe pneumonia versus bronchiectasis-patient's complaint of shortness of breath for the past few months. She's had episodes of saturations ranging from 70% on 3 L to the upper 90% on room air. She had a negative CT angiogram ruling out PE last month. She's had chest x-rays and CT scans of the chest. Currently Dr. Sam Padron is on board. Patient's saturation was improved today with her saturation on room air prior to endoscopy in the 90% range. #3 - acute renal failure.-Patient was found to have a significant waist creatinine compared to her previous studies. Her creatinine at the [facility] on December 16 was 0.87. Admitting on December 23 was 0.3. Creatinine on admission yesterday was 7.42. nephrology on consult. Urinalysis and urine electrolytes obtained. Patient currently with Gongora catheter in place measuring strict ins and outs. Urine output his hematocrit-BUN and creatinine are improving. #4 - leukopenia now mild thrombocytopenia. Patient's white blood cell count has been low with each measurement since December. the patient noted her combination of shortness of breath, some fatigue and oral viral type sores for the past few months. My initial consideration was this was a viral etiology, now question autoimmune disorder.
[2019-01-09] MEDS: Atorvastatin Calcium 80 MG Tablet PO (21:30)
[2019-01-09] MEDS: Temazepam 15 MG Capsule 30 MG PO (21:31)
[2019-01-10] VITALS (15 sets, daily range): BP systolic 99–111; BP diastolic 58–82; PULSE 95–113; RESP 11–22; TEMP 36.8–37.1; O2SAT 93–99
[2019-01-10] MEDS: Morphine 4 MG/ML Syringe IV ×3 (04:24→11:54)
[2019-01-10] MEDS: 0.9% Normal Saline 1,000 ML 75 ML IV (05:51)
[2019-01-10 06:00] LABS: Absolute Neutrophil Count 1.2 X10^3/uL (2.0-7.7); Basophil# 0.01 X10^3/uL; Basophil% 0.5 % (0-1); Eosinophil# 0.04 X10^3/uL; Eosinophils% 1.9 % (0-5); Hematocrit 30.3 % (37-47); Hemoglobin 9.4 g/dL (12.0-15.0); Lymphocyte % 32.6 % (19-41); Mean Corpuscular Hgb 29.8 pg (27.0-32.0); Mean Corpuscular Volume 96.2 fL (81-99); Mean Platelet Vol. 10.8 fl (6.2-12.0); Monocyte# 0.19 X10^3/uL; Monocyte% 8.8 % (0-10); NRBC Flagged by Analyzer 0 % (0-5); Neutrophil % 55.7 % (47-70); Platelet Count 90 K/mm3 (150-450); RBC Distribution Width SD 56.1 fl (35.1-43.9); Red Blood Count 3.15 M/mm3 (4.2-5.4); White Blood Count 2.2 K/mm3 (4.4-11.0)
[2019-01-10 06:19] LABS: Albumin, Serum 2.7 g/dL (3.2-5.0); BUN 31 mg/dL (7-18); BUN/Creat Ratio 5.5 RATIO (10-20); Calcium,Total 7.9 mg/dL (8.5-10.1); Chloride 111 mmol/L (98-107); Creatinine, Serum 5.61 mg/dL (0.55-1.02); EST Glomerular Filtration Rate 8 mL/min (>60); Est Glom Filt Rate - Afr Amer 10 mL/min (>60); Estimated Creatinine Clearance 11.16 ml/min; Glucose 96 mg/dL (74-106); Phosphorus 5.7 mg/dL (2.5-4.9); Potassium 4.1 mmol/L (3.5-5.1); Sodium Level 143 mmol/L (136-145)
[2019-01-10] MEDS: Ipratropium/Albuterol Sulfate 3 ML AMPUL.NEB INHALATION ×2 (07:30→12:42)
[2019-01-10] MEDS: Budesonide Respules 0.5 MG/2 ML AMPUL.NEB. INHALATION ×2 (07:30→19:16)
[2019-01-10] MEDS: Pantoprazole Sodium 40 MG Tablet PO (08:23)
[2019-01-10] MEDS: LORazepam 0.5 MG Tablet PO ×2 (08:24→16:39)
--- NOTE | 2019-01-10 10:40 | PCM.PN.PUL ---
Patient Problems: Active and Suspected Problems (Last Reviewed 01/07/19 @ 18:25 by Bridgette Ivory DO) Thrombocytopenia (Acute) Metabolic acidosis (Acute) ARF (acute renal failure) (Acute) Hyperphosphatemia (Acute) Idiopathic right ventricular dilation (Acute) Hypotension (Acute) COPD (chronic obstructive pulmonary disease) (Suspected) Subjective: Patient is feeling subjectively improved compared to previous day. Patient is denying any nausea. Patient did have her Gongora removed this morning. Patient states that her oxygen status continues to fluctuate. Patient did use BiPAP overnight. - Physical Exam General: Alert, Oriented x3, Cooperative, No apparent distress, - - Morbidly obese. No conversational dyspnea HEENT: Atraumatic, PERRLA, EOMI, Normocephalic, - - No scleral icterus or injection noted. Oral: Moist Mucosa, No Gingival or Mucosal Lesions/ Ulcerations Neck: Supple, No JVD, No Nodes, Trachea Midline Lungs: No wheeze, No rales, Diminished Cardiovascular: Regular rate, Regular Rhythm, Normal S1, Normal S2, No murmurs, No rub noted, No Gallop Abdomen: Bowel Sounds Present, Soft, Non Tender, Non-Distended Extremities: No clubbing, No cyanosis, Edema - Improving Skin: No rashes, No breakdown Musculoskeletal: No Tenderness to Palpation of Joints or Extremities Lymphatic: No Cervical, Supraclavicular, or Inguinal Adenopathy Neurological: Cranial nerves II-XII grossly intact, Neuro grossly intact, Motor Exam 5/5 strength throughout Psych/Mental Status: Alert and oriented to time, place, person, mood and affect Vital Signs Temp Pulse Resp BP Pulse Ox 37.1 C 105 H 16 102/58 L 94 01/10/19 08:16 01/10/19 08:16 01/10/19 08:16 01/10/19 08:16 01/10/19 08:16 Oxygen Flow Rate (L/min) 2 Oxygen Delivery Method Nasal Cannula Weight: 122.7 kg Body Mass Index (BMI) 41.1 Intake and Output for Last 24 Hours 01/08/19 01/09/19 01/10/19 23:59 23:59 23:59 Intake Total 7181 / 7181 3781.4 / 3781.4 1156 / 1156 Output Total 2049 / 2049 2850 / 2850 975 / 975 Balance 5131 / 5131 931.4 / 931.4 181 / 181 Laboratory Tests Past 24 Hrs 01/10/19 01/10/19 05:36 05:36 WBC 2.2 L RBC 3.15 L Hgb 9.4 L Hct 30.3 L MCV 96.2 MCH 29.8 MCHC 31.0 L RDW Std Deviation 56.1 H RDW Coeff of Jaun 16.0 H Plt Count 90 L MPV 10.8 Immature Gran % (Auto) 0.500 Neut % (Auto) 55.7 Lymph % (Auto) 32.6 [place] % (Auto) 8.8 Eos % (Auto) 1.9 Baso % (Auto) 0.5 Absolute Neuts (auto) 1.2 L Absolute Lymphs (auto) 0.70 L Nucleated RBC % 0 Sodium 143 Potassium 4.1 Chloride 111 H Carbon Dioxide 22.0 BUN 31 H Creatinine 5.61 H Estim Creat Clear Calc 11.16 Est GFR (MDRD) Af Amer 10 L Est GFR (MDRD) Non-Af 8 L BUN/Creatinine Ratio 5.5 L Glucose 96 Calcium 7.9 L Phosphorus 5.7 H Albumin 2.7 L Medical Necessity - Tobacco Use Smoking Status: Former smoker - Quit in 2004 Tobacco Use: Non-smoker Assessment/Plan All Active Problems (Last Reviewed 01/07/19 @ 18:25 by Bridgette Ivory DO) Respiratory failure with hypoxia (Ruled-out) Respiratory insufficiency (Acute) Anemia (Acute) Thrombocytopenia (Acute) Metabolic acidosis (Acute) ARF (acute renal failure) (Acute) Hyperphosphatemia (Acute) Idiopathic right ventricular dilation (Acute) Hypotension (Acute) Sepsis (Resolved) RECOMMENDATIONS: 1. Walking oximetry prior to discharge 2. Cont triple inhalation therapy 3. Await renal recommendations 4. Continue baseline BiPAP therapy 5. Outpatient complete PFT and polysomnogram IMPRESSIONS: 1. Hypoxemia Patient has required minimal nasal cannula oxygen overnight to maintain saturations. Patient may still have an element of pulmonary hypertension secondary to chronic hypoxemia with sleep. Will need to watch patient's fluid status closely. Renal status is improving. Cannot exclude air trapping with desaturation secondary to underlying chronic bronchitis/bronchiectasis. Will continue patient on triple therapy and see if this helps her overall condition. Pulmonary hypertension is not very impressive by echocardiogram, but patient does have RV dysfunction. Walking oximetry prior to discharge. Do anticipate desaturation with ambulation even if tolerating room air at rest. 2. Obstructive sleep apnea Patient with severe obstructive sleep apnea and desaturation on sleep study. Unclear if patient is persisting and hypoxemia overnight. Patient should continue on continuous pulse ox. Patient has been tolerating home BiPAP during hospitalization. However, given changes in weight and pulmonary hypertension, repeat polysomnogram is likely indicated as an outpatient. 3. Bronchiectasis New diagnosis. Patient does not appear to have significant mucus plugging at this time. Could initiate Acapella therapy. Patient does have some wheezing on exam and may benefit from empiric bronchodilator therapy. Unclear if patient truly requires steroid therapy. Patient should have a complete pulmonary function test as an outpatient. Patient should have a walking oximetry prior to discharge. 4. Acute renal failure Continues to improve. Possible prerenal etiology, but BUN/creatinine ratio was not suggestive. Nephrology has been consulted. No indication for urgent renal replacement therapy. Autoimmune work-up is currently pending. Renal function is somewhat improved compared to yesterday. Hopefully patient achieves diuretic phase of ATN and is able to improve fluid status. 5. Pancytopenia/recent colitis/morbid obesity/liver hemangioma/anxiety/depression/history of smoking Complicates care, management, recovery and prognosis. May consider hematology evaluation if autoimmune panel is negative Code Visit Inpatient E&M: 66498 [facility] Hosp L2
--- NOTE | 2019-01-10 11:59 | PN.RENAL_ITS ---
Patient Problems: Active and Suspected Problems (Last Reviewed 01/07/19 @ 18:25 by Bridgette Ivory DO) Thrombocytopenia (Acute) Metabolic acidosis (Acute) ARF (acute renal failure) (Acute) Hyperphosphatemia (Acute) Idiopathic right ventricular dilation (Acute) Hypotension (Acute) COPD (chronic obstructive pulmonary disease) (Suspected) Subjective: still with RLQ abdominal pain. Urine output good. Gongora catheter removed. Still receiving IVF. Creatinine continues to improve. - Physical Exam General: Alert, Oriented x3, Cooperative, No apparent distress Lungs: Clear to auscultation Cardiovascular: Regular rate, No rub noted Abdomen: Bowel Sounds Present, Soft, Obese, Tender - RLQ Extremities: No edema Psych/Mental Status: Anxious, Depressed, Alert and oriented to time, place, person, mood and affect Vital Signs Temp Pulse Resp BP Pulse Ox 98.8 F 106 H 15 102/67 97 01/10/19 11:52 01/10/19 11:52 01/10/19 11:52 01/10/19 11:52 01/10/19 11:52 Oxygen Flow Rate (L/min) 2 Oxygen Delivery Method Room Air Weight: 122.7 kg Body Mass Index (BMI) 41.1 Intake and Output for Last 24 Hours 01/08/19 01/09/19 01/10/19 23:59 23:59 23:59 Intake Total 7181 / 7181 3781.4 / 3781.4 1156 / 1156 Output Total 2049 / 2049 2850 / 2850 975 / 975 Balance 5131 / 5131 931.4 / 931.4 181 / 181 Laboratory Tests Past 24 Hrs 01/10/19 01/10/19 05:36 05:36 WBC 2.2 L RBC 3.15 L Hgb 9.4 L Hct 30.3 L MCV 96.2 MCH 29.8 MCHC 31.0 L RDW Std Deviation 56.1 H RDW Coeff of Jaun 16.0 H Plt Count 90 L MPV 10.8 Immature Gran % (Auto) 0.500 Neut % (Auto) 55.7 Lymph % (Auto) 32.6 [place] % (Auto) 8.8 Eos % (Auto) 1.9 Baso % (Auto) 0.5 Absolute Neuts (auto) 1.2 L Absolute Lymphs (auto) 0.70 L Nucleated RBC % 0 Sodium 143 Potassium 4.1 Chloride 111 H Carbon Dioxide 22.0 BUN 31 H Creatinine 5.61 H Estim Creat Clear Calc 11.16 Est GFR (MDRD) Af Amer 10 L Est GFR (MDRD) Non-Af 8 L BUN/Creatinine Ratio 5.5 L Glucose 96 Calcium 7.9 L Phosphorus 5.7 H Albumin 2.7 L Medical Necessity - Tobacco Use Smoking Status: Former smoker - Quit in 2004 Tobacco Use: Non-smoker Assessment/Plan All Active Problems (Last Reviewed 01/07/19 @ 18:25 by Bridgette Ivory DO) Respiratory failure with hypoxia (Ruled-out) Respiratory insufficiency (Acute) Anemia (Acute) Thrombocytopenia (Acute) Metabolic acidosis (Acute) ARF (acute renal failure) (Acute) Hyperphosphatemia (Acute) Idiopathic right ventricular dilation (Acute) Hypotension (Acute) Sepsis (Resolved) 1. Acute kidney injury suspect ischemic ATN. Creatinine improved to 5.6 today with good UOP. Gongora dc'd. DC iv fluids. Baseline creatinine 0.8. Continue to monitor renal fxn. as outpt. Follow up with me in 1 week with labs next week. Ok to dc to home over weekend if renal fxn continues to improve. 2. Hyperphosphatemia improving. 3. RLQ abdominal pain s/p colonoscopy receiving iv morphine. Watch for respiratory depression with narcotics with renal failure.
--- NOTE | 2019-01-10 13:28 | CASEMGMT ---
RN HORACIO NOTE: To room to discuss discharge planning/needs w/pt. Pt resting quietly in bed. She states she does not have any concerns/needs with going home @ discharge. She denies need for HHC or OP therapy. Pt made aware to ask for CM if any needs/concerns arise. Pt voices understanding. Cheryl LYNCHN SIMON LEONARD
[2019-01-10 15:59] LABS: ANTINUCLEAR ANTIBODIES DIRECT Negative (Negative)
[2019-01-10 15:59] LABS: Eosinophil Ct. Urine No Eosinophils Seen % (.)
--- NOTE | 2019-01-10 16:13 | PCM.PN.HOSP ---
Patient Problems: Active and Suspected Problems (Last Reviewed 01/07/19 @ 18:25 by Bridgette Ivory DO) Thrombocytopenia (Acute) Metabolic acidosis (Acute) ARF (acute renal failure) (Acute) Hyperphosphatemia (Acute) Idiopathic right ventricular dilation (Acute) Hypotension (Acute) COPD (chronic obstructive pulmonary disease) (Suspected) Subjective: Seen and examined. Overall patient feels improvement. IV fluid discontinued by communications editor. Discussed with Dr. Winkler. Discussed with the surgeon Dr. Hernandez. He thinks patient is surgically stable from his point of view. Patient is still complaining of pain on right flank Vitals/I&O's: Vital Signs Temp Pulse Resp BP Pulse Ox 98.6 F 101 H 15 99/68 93 01/10/19 16:11 01/10/19 16:11 01/10/19 16:11 01/10/19 16:11 01/10/19 16:11 Oxygen Flow Rate (L/min) 2 Oxygen Delivery Method Nasal Cannula Weight: 270 lb 8.115 oz Body Mass Index (BMI) 41.1 Intake and Output for Last 24 Hours 01/08/19 01/09/19 01/10/19 23:59 23:59 23:59 Intake Total 7181 / 7181 3781.4 / 3781.4 2234 / 2234 Output Total 2049 / 2049 2850 / 2850 1875 / 1875 Balance 5131 / 5131 931.4 / 931.4 359 / 359 General: Alert, Oriented x3, Cooperative HEENT: Atraumatic, PERRLA, EOMI, Normocephalic Neck: Supple, No JVD, Negative Carotid Bruits Lungs: Clear to auscultation, Normal air movement Cardiovascular: Regular rate, Regular Rhythm, Normal S1, Normal S2, No murmurs, Tachycardic Abdomen: Bowel Sounds Present, Soft, Non Tender, Non-Distended Extremities: No edema, Capillary Refill Less than 3 Seconds Skin: No rashes, No breakdown Musculoskeletal: No Tenderness to Palpation of Joints or Extremities, Arthritic Changes Neurological: Cranial nerves II-XII grossly intact, Deep Tendon Reflexes 2+/4 and Symmetrical, Neuro grossly intact Psych/Mental Status: Normal Affect, Appropriate Laboratory Results 01/07/19 14:43: ZOYA Screen Negative 01/07/19 22:21: Eos Smear Total Cells No Eosinophils Seen 01/10/19 05:36: Sodium 143, Potassium 4.1, Chloride 111 H, Carbon Dioxide 22.0, BUN 31 H, Creatinine 5.61 H, Estim Creat Clear Calc 11.16, Est GFR (MDRD) Af Amer 10 L, Est GFR (MDRD) Non-Af 8 L, BUN/Creatinine Ratio 5.5 L, Glucose 96, Calcium 7.9 L, Phosphorus 5.7 H, Albumin 2.7 L 01/10/19 05:36: WBC 2.2 L, RBC 3.15 L, Hgb 9.4 L, Hct 30.3 L, MCV 96.2, MCH 29.8, MCHC 31.0 L, RDW Std Deviation 56.1 H, RDW Coeff of Jaun 16.0 H, Plt Count 90 L, MPV 10.8, Immature Gran % (Auto) 0.500, Neut % (Auto) 55.7, Lymph % (Auto) 32.6, [place] % (Auto) 8.8, Eos % (Auto) 1.9, Baso % (Auto) 0.5, Absolute Neuts (auto) 1.2 L, Absolute Lymphs (auto) 0.70 L, Nucleated RBC % 0 Current Medications Acetaminophen (Tylenol) 650 mg PO Q6H PRN PRN PRN Reason: Mild Pain (1-3)/Temp > 100.7 F Albuterol Sulfate (Ventolin Aerosols) 2.5 mg INHALATION Q4H PRN PRN PRN Reason: SHORTNESS OF BREATH Last Admin: 01/09/19 03:17 Dose: 2.5 mg Documented by: Albuterol/Ipratropium (Duoneb) 3 ml INHALATION Q6HWA.RT [facility] Last Admin: 01/10/19 12:42 Dose: 3 ml Documented by: Atorvastatin Calcium (Lipitor) 80 mg PO QHS NINA Last Admin: 01/09/19 21:30 Dose: 80 mg Documented by: Budesonide (Pulmicort Aerosol) 0.5 mg INHALATION BID.RT [facility] Last Admin: 01/10/19 07:30 Dose: 0.5 mg Documented by: Lorazepam (Ativan) 0.5 mg PO Q8H PRN PRN PRN Reason: severe anxiety Last Admin: 01/10/19 08:24 Dose: 0.5 mg Documented by: Oxycodone HCl (Oxyir) 5 - 10 mg PO Q4H PRN PRN PRN Reason: SEVERE PAIN (6-10/10) Pantoprazole Sodium (Protonix) 40 mg PO DAILY NINA Last Admin: 01/10/19 08:23 Dose: 40 mg Documented by: Prochlorperazine Edisylate (Compazine Iv) 5 mg IV Q6H PRN PRN PRN Reason: NAUSEA/VOMITING Last Admin: 01/08/19 18:40 Dose: 5 mg Documented by: Sodium Chloride () 10 - 40 ml IV UD PRN PRN Reason: SALINE FLUSH Last Admin: 01/09/19 13:11 Dose: 10 ml Documented by: Temazepam (Restoril) 30 mg PO QHS PRN PRN Reason: SLEEP Last Admin: 01/09/19 21:31 Dose: 30 mg Documented by: Medical Necessity - Tobacco Use Smoking Status: Former smoker - Quit in 2004 Tobacco Use: Non-smoker Assessment/Plan All Active Problems (Last Reviewed 01/07/19 @ 18:25 by Bridgette Ivory DO) Respiratory failure with hypoxia (Ruled-out) Respiratory insufficiency (Acute) Anemia (Acute) Thrombocytopenia (Acute) Metabolic acidosis (Acute) ARF (acute renal failure) (Acute) Hyperphosphatemia (Acute) Idiopathic right ventricular dilation (Acute) Hypotension (Acute) Sepsis (Resolved) There is a 58-year-old female with history of colitis multiple comorbidities Including obstructive sleep apnea on BiPAP with recent admission for colitis suspect to be secondary to ischemic colitis. Patient continued to have abdominal pain therefore outpatient colonoscopy on 01/07/2019 which was canceled secondary to hypoxia. Patient on 3 L of oxygen. She discharged last time without oxygen. 1. Acute hypoxic respiratory failure: Patient pulse ox 81% on room air in the healthcare consultant. Currently 96% on 2 L of oxygen. Maintain BiPAP at night ABG 7.30/40 1/75 on room air consistent with increased AA gradient. Furthermore VQ scan was done which reported normal. Patient was also seen by alumni relations officer. As per alumni relations officer, patient has severe obstructive sleep apnea and desaturation on sleep study. Patient also has bronchiectasis on CT scan. Patient advised on triple therapy. Does not have significant mucus plugging. Patient need further mobilization and PT and OT. Will need outpatient pulmonary function test and walking pulse oximetry prior to discharge. 2. Bronchiectasis, possible COPD: Obstructive sleep apnea possible has hypoxia during sleep: As mentioned above. 3. Acute kidney injury possible ATN, FeNa more than 1% with high urine sodium 73. Kidney function is improving. BUN/creatinine 31-5.6. Chloride 111. IV fluid discontinued. 4. Chronic abdominal pain: Exact etiology unclear, localized colitis in ascending colon: Patient had colonoscopy on 01/08/2019 which showed localized mild inflammation in the mid ascending colon secondary to colitis. I think her pain is more subjective as she has been treated with antibiotics the past. Change morphine to oxycodone. 5. Biventricular heart failure, with chronic diastolic heart failure and right ventricular dilatation with mild hypotension: patient had echo done on 01/07/2019 reported as EF 65% with grossly normal left ventricular size, wall motion and systolic function but impaired relaxation of LV suggestive of heart failure with preserved EF. Moderately dilated RV. Moderate global right ventricular systolic dysfunction. Trivial MR, trivial TR. RVSP 33 mmHg. Mild hypotension 6. Liver hemangioma, thrombocytopenia and leukopenia: WBC count is 3.3. H&H 10.1/32.3. Platelet count 98,000. Patient has mild leukopenia, WBC count average 2.4k and thrombocytopenia average 100,000 since December 2018. Exact cause of leukopenia and thrombocytopenia unclear. Possible related to acute kidney injury or chronic disease. She underwent right upper quadrant sonogram on 12/23/2018. Reported as normal echogenicity of liver, 17.9 cm. Bile ducts within normal limit. 1.4 x 1.6 cm hypoechoic mass in left hepatic lobe represent hemangioma. Other comorbidities include hypertension, dyslipidemia, anxiety and depression, former smoker quit in 2004, morbid obesity, DVT prophylaxis: Pharmacological prophylaxis contraindicated. Bilateral SCDs Clinical Impression(s) from Imaging Studies Chest X-Ray 01/07/19 12:22 IMPRESSION: Increased markings in the right mid lung as well as at the left lung base suggestive of atelectasis. Renal Ultrasound 01/07/19 16:05 IMPRESSION: Within normal limits ultrasound of the kidneys and urinary bladder. Lung Scan-VQ NM 01/08/19 05:55 IMPRESSION: Normal 99m Tc MAA pulmonary perfusion Tc DTPA aerosol ventilation imaging survey, according to revised PIOPED interpretive criteria. Chest X-Ray 01/08/19 10:00 IMPRESSION: Improvement in aeration of the right mid lung as well as the left lower lobe. Mild residual changes persist. Laboratory Results 01/07/19 14:43: ZOYA Screen Negative 01/07/19 22:21: Eos Smear Total Cells No Eosinophils Seen 01/10/19 05:36: Sodium 143, Potassium 4.1, Chloride 111 H, Carbon Dioxide 22.0, BUN 31 H, Creatinine 5.61 H, Estim Creat Clear Calc 11.16, Est GFR (MDRD) Af Amer 10 L, Est GFR (MDRD) Non-Af 8 L, BUN/Creatinine Ratio 5.5 L, Glucose 96, Calcium 7.9 L, Phosphorus 5.7 H, Albumin 2.7 L 01/10/19 05:36: WBC 2.2 L, RBC 3.15 L, Hgb 9.4 L, Hct 30.3 L, MCV 96.2, MCH 29.8, MCHC 31.0 L, RDW Std Deviation 56.1 H, RDW Coeff of Jaun 16.0 H, Plt Count 90 L, MPV 10.8, Immature Gran % (Auto) 0.500, Neut % (Auto) 55.7, Lymph % (Auto) 32.6, [place] % (Auto) 8.8, Eos % (Auto) 1.9, Baso % (Auto) 0.5, Absolute Neuts (auto) 1.2 L, Absolute Lymphs (auto) 0.70 L, Nucleated RBC % 0 Code Visit Inpatient E&M: 53666 Subs Hosp L3
[2019-01-10] MEDS: oxyCODONE 5 MG Tablet PO ×2 (16:14→20:22)
[2019-01-10] MEDS: proCHLORPERazine 10 MG/2 ML Vial 5 MG IV (18:00)
[2019-01-10] MEDS: 0.9% NaCl Peripheral Flush Adult/Peds IV (18:01)
--- NOTE | 2019-01-10 18:12 | PN.SURG_ITS ---
Patient Problems: Active and Suspected Problems (Last Reviewed 01/07/19 @ 18:25 by Bridgette Ivory DO) Thrombocytopenia (Acute) Metabolic acidosis (Acute) ARF (acute renal failure) (Acute) Hyperphosphatemia (Acute) Idiopathic right ventricular dilation (Acute) Hypotension (Acute) COPD (chronic obstructive pulmonary disease) (Suspected) Subjective: still some pain right lower quadrant, better spirits - Physical Exam General: Alert, Oriented x3 Lungs: Clear to auscultation, Normal air movement Cardiovascular: Regular rate, No murmurs Abdomen: Bowel Sounds Present, Soft, Tender - minimal right lower quadrant Vital Signs Temp Pulse Resp BP Pulse Ox 98.6 F 101 H 15 99/68 93 01/10/19 16:11 01/10/19 16:11 01/10/19 16:11 01/10/19 16:11 01/10/19 16:11 Oxygen Flow Rate (L/min) 2 Oxygen Delivery Method Nasal Cannula Weight: 122.7 kg Body Mass Index (BMI) 41.1 Intake and Output for Last 24 Hours 01/08/19 01/09/19 01/10/19 23:59 23:59 23:59 Intake Total 7181 / 7181 3781.4 / 3781.4 2754 / 2754 Output Total 2049 / 2049 2850 / 2850 2675 / 2675 Balance 5131 / 5131 931.4 / 931.4 79 / 79 Laboratory Tests Past 24 Hrs 01/07/19 01/07/19 01/10/19 14:43 22:21 05:36 WBC RBC Hgb Hct MCV MCH MCHC RDW Std Deviation RDW Coeff of Jaun Plt Count MPV Immature Gran % (Auto) Neut % (Auto) Lymph % (Auto) [place] % (Auto) Eos % (Auto) Baso % (Auto) Absolute Neuts (auto) Absolute Lymphs (auto) Nucleated RBC % Eos Smear Total Cells No Eosinophils Seen Sodium 143 Potassium 4.1 Chloride 111 H Carbon Dioxide 22.0 BUN 31 H Creatinine 5.61 H Estim Creat Clear Calc 11.16 Est GFR (MDRD) Af Amer 10 L Est GFR (MDRD) Non-Af 8 L BUN/Creatinine Ratio 5.5 L Glucose 96 Calcium 7.9 L Phosphorus 5.7 H Albumin 2.7 L ZOYA Screen Negative 01/10/19 05:36 WBC 2.2 L RBC 3.15 L Hgb 9.4 L Hct 30.3 L MCV 96.2 MCH 29.8 MCHC 31.0 L RDW Std Deviation 56.1 H RDW Coeff of Jaun 16.0 H Plt Count 90 L MPV 10.8 Immature Gran % (Auto) 0.500 Neut % (Auto) 55.7 Lymph % (Auto) 32.6 [place] % (Auto) 8.8 Eos % (Auto) 1.9 Baso % (Auto) 0.5 Absolute Neuts (auto) 1.2 L Absolute Lymphs (auto) 0.70 L Nucleated RBC % 0 Eos Smear Total Cells Sodium Potassium Chloride Carbon Dioxide BUN Creatinine Estim Creat Clear Calc Est GFR (MDRD) Af Amer Est GFR (MDRD) Non-Af BUN/Creatinine Ratio Glucose Calcium Phosphorus Albumin ZOYA Screen Medical Necessity - Tobacco Use Smoking Status: Former smoker - Quit in 2004 Tobacco Use: Non-smoker Assessment/Plan All Active Problems (Last Reviewed 01/07/19 @ 18:25 by Bridgette Ivory DO) Respiratory failure with hypoxia (Ruled-out) Respiratory insufficiency (Acute) Anemia (Acute) Thrombocytopenia (Acute) Metabolic acidosis (Acute) ARF (acute renal failure) (Acute) Hyperphosphatemia (Acute) Idiopathic right ventricular dilation (Acute) Hypotension (Acute) Sepsis (Resolved) Shanda Felder is a 58-year-old female with a complex constellation of symptoms. #1 - right lower quadrant pain, colitis patient underwent initial colonoscopy on December 10 which demonstrated a very short segment half circumference of the intestine of significantly advanced colitis with necrotic tissue. The patient underwent repeat colonoscopy today since she had been bowel prepped 2 days previously. Endoscopy currently demonstrates a normal-appearing terminal ileum a normal-appearing cecal base and significant healing of the short segment of advanced colitis. There was what appeared to be some scarring and firmness in the area. Biopsies were obtained and the site bled this time. This is consistent with healing segmental colitis. Biopsies were obtained and are currently pending for pathology. stool cultures from December 23 were negative for enteric pathogens but positive for lactoferrin and occult blood. The length and partial circumference of this abnormality makes me doubt true infectious etiology. Normal-appearing terminal ileum and the location makes me question a small ischemic segment possibly due to thrombosis or hypercoagulable state. Doubt atherosclerotic changes or large emboli given the fact that the cecal base was uninvolved. Pathology returned as: MICROSCOPIC DIAGNOSIS A. Terminal ileum, biopsy: A fragment of small intestinal mucosa, no pathologic diagnosis. B. Ascending colon, biopsy: Fragments of colonic mucosa with ulceration, acute and chronic inflammation and granulation tissue reaction. Negative for malignancy. See comment. #2 - hypoxia, questionable lower lobe pneumonia versus bronchiectasis-patient's complaint of shortness of breath for the past few months. She's had episodes of saturations ranging from 70% on 3 L to the upper 90% on room air. She had a negative CT angiogram ruling out PE last month. She's had chest x-rays and CT scans of the chest. Currently Dr. Sam Padron is on board. Patient's saturation was improved today with her saturation on room air prior to endoscopy in the 90% range. #3 - acute renal failure.-Patient was found to have a significant waist creatinine compared to her previous studies. Her creatinine at the [facility] on December 16 was 0.87. Admitting on December 23 was 0.3. Creatinine on admission yesterday was 7.42. nephrology on consult. Urinalysis and urine electrolytes obtained. Patient currently with [place] catheter in place measuring strict ins and outs. Urine output his hematocrit-BUN and creatinine are improving. #4 - leukopenia now mild thrombocytopenia. Patient's white blood cell count has been low with each measurement since December. the patient noted her combination of shortness of breath, some fatigue and oral viral type sores for the past few months. My initial consideration was this was a viral etiology, now question autoimmune disorder.
[2019-01-10] MEDS: Albuterol 2.5 MG/3 ML VIAL.NEB. INHALATION (19:15)
[2019-01-10] MEDS: Atorvastatin Calcium 80 MG Tablet PO (20:22)
[2019-01-10] MEDS: Temazepam 15 MG Capsule 30 MG PO (20:23)
[2019-01-11] VITALS (8 sets, daily range): BP systolic 98–111; BP diastolic 55–71; PULSE 98–105; RESP 16–18; TEMP 36.7–37; O2SAT 93–98
[2019-01-11] MEDS: proCHLORPERazine 10 MG/2 ML Vial 5 MG IV ×2 (02:49→10:15)
[2019-01-11] MEDS: 0.9% NaCl Peripheral Flush Adult/Peds IV (02:51)
[2019-01-11] MEDS: LORazepam 0.5 MG Tablet PO ×2 (02:52→12:24)
[2019-01-11] MEDS: oxyCODONE 5 MG Tablet PO ×2 (05:11→10:15)
[2019-01-11 07:21] LABS: Absolute Lymphocyte Count 0.66 X10^3/uL (0.83-4.51); Absolute Neutrophil Count 1.5 X10^3/uL (2.0-7.7); Basophil# 0.01 X10^3/uL; Basophil% 0.4 % (0-1); Eosinophil# 0.04 X10^3/uL; Eosinophils% 1.6 % (0-5); Hematocrit 33.3 % (37-47); Hemoglobin 10.2 g/dL (12.0-15.0); Lymphocyte # 0.66 X10^3/ul (4.0); Lymphocyte % 27.2 % (19-41); Mean Corp Hgb Conc 30.6 g/dL (32-36); Mean Corpuscular Hgb 29.7 pg (27.0-32.0); Mean Corpuscular Volume 97.1 fL (81-99); Mean Platelet Vol. 10.1 fl (6.2-12.0); Monocyte# 0.21 X10^3/uL; Monocyte% 8.6 % (0-10); NRBC Flagged by Analyzer 0 % (0-5); Neutrophil # 1.49 X10^3/uL (2.7-7.7); Neutrophil % 61.4 % (47-70); Platelet Count 97 K/mm3 (150-450); RBC Distribution Width CV 15.9 % (11.6-14.6); Red Blood Count 3.43 M/mm3 (4.2-5.4); White Blood Count 2.4 K/mm3 (4.4-11.0)
[2019-01-11] MEDS: Ipratropium/Albuterol Sulfate 3 ML AMPUL.NEB INHALATION (07:32)
[2019-01-11] MEDS: Budesonide Respules 0.5 MG/2 ML AMPUL.NEB. INHALATION (07:32)
[2019-01-11 07:34] LABS: Albumin, Serum 2.7 g/dL (3.2-5.0); BUN 30 mg/dL (7-18); Calcium,Total 8.1 mg/dL (8.5-10.1); Chloride 110 mmol/L (98-107); Creatinine, Serum 4.27 mg/dL (0.55-1.02); EST Glomerular Filtration Rate 11 mL/min (>60); Est Glom Filt Rate - Afr Amer 14 mL/min (>60); Estimated Creatinine Clearance 14.66 ml/min; Glucose 104 mg/dL (74-106); Phosphorus 5.5 mg/dL (2.5-4.9); Sodium Level 144 mmol/L (136-145)
--- NOTE | 2019-01-11 07:39 | PN_ITS ---
Patient Problems: Active and Suspected Problems (Last Reviewed 01/07/19 @ 18:25 by Bridgette Ivory DO) Thrombocytopenia (Acute) Metabolic acidosis (Acute) ARF (acute renal failure) (Acute) Hyperphosphatemia (Acute) Idiopathic right ventricular dilation (Acute) Hypotension (Acute) COPD (chronic obstructive pulmonary disease) (Suspected) Subjective: Patient did okay overnight. Patient did have some nausea and vomiting yesterday afternoon. Patient was able to tolerate BiPAP overnight. Patient reports subjective worsening compared to yesterday, mainly related to nausea. Patient does report good urine output. No fevers reported overnight. - Physical Exam General: Alert, Oriented x3, Cooperative, No apparent distress, Well developed, Well nourished, - - Morbidly obese. No conversational dyspnea. HEENT: Atraumatic, PERRLA, EOMI, Normocephalic, - - No scleral icterus or injection noted. Oral: Moist Mucosa, No Gingival or Mucosal Lesions/ Ulcerations Neck: Supple, No JVD, No Nodes, Trachea Midline Lungs: No rhonchi, No wheeze, No rales, Diminished, - - Symmetric expansion. No dullness to percussion. Cardiovascular: Regular rate, Regular Rhythm, Normal S1, Normal S2, No murmurs, No rub noted, No Gallop Abdomen: Bowel Sounds Present, Soft, Non-Distended, Obese, Tender - Mildly in right lower quadrant. No rebound or guarding appreciated. Extremities: No clubbing, No cyanosis, Edema - Trace lower extremity Skin: No rashes, No breakdown Musculoskeletal: No Tenderness to Palpation of Joints or Extremities Lymphatic: No Cervical, Supraclavicular, or Inguinal Adenopathy Neurological: Cranial nerves II-XII grossly intact, Neuro grossly intact, Motor Exam 5/5 strength throughout Psych/Mental Status: Alert and oriented to time, place, person, mood and affect Vital Signs Temp Pulse Resp BP Pulse Ox 36.8 C 100 16 108/55 L 98 01/11/19 05:10 01/11/19 05:10 01/11/19 05:10 01/11/19 05:10 01/11/19 05:10 Oxygen Flow Rate (L/min) 2 Oxygen Delivery Method Nasal Cannula Weight: 122.7 kg Body Mass Index (BMI) 41.1 Intake and Output for Last 24 Hours 01/09/19 01/10/1901/11/19 23:59 23:59 23:59 Intake Total 3781.4 / 3781.4 2754 / 2854 700 / 700 Output Total 2850 / 2850 2675 / 3575 1550 / 1550 Balance 931.4 / 931.4 79 / -721 -850 / -850 Laboratory Tests Past 24 Hrs 01/07/19 01/07/19 01/11/19 14:43 22:21 06:42 WBC RBC Hgb Hct MCV MCH MCHC RDW Std Deviation RDW Coeff of Jaun Plt Count MPV Immature Gran % (Auto) Neut % (Auto) Lymph % (Auto) [place] % (Auto) Eos % (Auto) Baso % (Auto) Absolute Neuts (auto) Absolute Lymphs (auto) Nucleated RBC % Eos Smear Total Cells No Eosinophils Seen Sodium 144 Potassium 4.0 Chloride 110 H Carbon Dioxide 25.0 BUN 30 H Creatinine 4.27 H Estim Creat Clear Calc 14.66 Est GFR (MDRD) Af Amer 14 L Est GFR (MDRD) Non-Af 11 L BUN/Creatinine Ratio 7.0 L Glucose 104 Calcium 8.1 L Phosphorus 5.5 H Albumin 2.7 L ZOYA Screen Negative 01/11/19 06:42 WBC 2.4 L RBC 3.43 L Hgb 10.2 L Hct 33.3 L MCV 97.1 MCH 29.7 MCHC 30.6 L RDW Std Deviation 56.0 H RDW Coeff of Jaun 15.9 H Plt Count 97 L MPV 10.1 Immature Gran % (Auto) 0.800 Neut % (Auto) 61.4 Lymph % (Auto) 27.2 [place] % (Auto) 8.6 Eos % (Auto) 1.6 Baso % (Auto) 0.4 Absolute Neuts (auto) 1.5 L Absolute Lymphs (auto) 0.66 L Nucleated RBC % 0 Eos Smear Total Cells Sodium Potassium Chloride Carbon Dioxide BUN Creatinine Estim Creat Clear Calc Est GFR (MDRD) Af Amer Est GFR (MDRD) Non-Af BUN/Creatinine Ratio Glucose Calcium Phosphorus Albumin ZOYA Screen Medical Necessity - Tobacco Use Smoking Status: Former smoker - Quit in 2004 Tobacco Use: Non-smoker Assessment/Plan All Active Problems (Last Reviewed 01/07/19 @ 18:25 by Bridgette Ivory DO) Respiratory failure with hypoxia (Ruled-out) Respiratory insufficiency (Acute) Anemia (Acute) Thrombocytopenia (Acute) Metabolic acidosis (Acute) ARF (acute renal failure) (Acute) Hyperphosphatemia (Acute) Idiopathic right ventricular dilation (Acute) Hypotension (Acute) Sepsis (Resolved) RECOMMENDATIONS: 1. Walking oximetry prior to discharge 2. Cont triple inhalation therapy 3. Okay to discharge from a pulmonary perspective. Patient has supplemental oxygen at home 4. Continue baseline BiPAP therapy 5. Outpatient complete PFT and polysomnogram IMPRESSIONS: 1. Hypoxemia Patient has required minimal nasal cannula oxygen overnight to maintain saturations. Patient may still have an element of pulmonary hypertension secondary to chronic hypoxemia with sleep. Will need to watch patient's fluid status closely. Renal status is improving. Cannot exclude air trapping with desaturation secondary to underlying chronic bronchitis/bronchiectasis. Will continue patient on triple therapy and see if this helps her overall condition. On discharge, these can likely be discontinued, patient can resume baseline inhaler therapy and we will reevaluate following complete pulmonary function test. Pulmonary hypertension is not very impressive by echocardiogram, but patient does have RV dysfunction. Walking oximetry prior to discharge. Do anticipate desaturation with ambulation even if tolerating room air at rest. 2. Obstructive sleep apnea Patient with severe obstructive sleep apnea and desaturation on sleep study. Unclear if patient is persisting and hypoxemia overnight. Patient should continue on continuous pulse ox. Patient has been tolerating home BiPAP during hospitalization. However, given changes in weight and pulmonary hypertension, repeat polysomnogram is likely indicated as an outpatient. 3. Bronchiectasis New diagnosis. Patient does not appear to have significant mucus plugging at this time. Could initiate Acapella therapy. Patient does have some wheezing on exam and may benefit from empiric bronchodilator therapy. Unclear if patient truly requires steroid therapy. Patient should have a complete pulmonary function test as an outpatient. Patient should have a walking oximetry prior to discharge. 4. Acute renal failure Continues to improve. Possible prerenal etiology, but BUN/creatinine ratio was not suggestive. Nephrology has been consulted. No indication for urgent renal replacement therapy. Autoimmune work-up is negative. Renal function is improved compared to yesterday. Hopefully patient achieves diuretic phase of ATN and is able to improve fluid status. 5. Pancytopenia/recent colitis/morbid obesity/liver hemangioma/anxiety/depression/history of smoking Complicates care, management, recovery and prognosis. May consider hematology evaluation if autoimmune panel is negative Code Visit Inpatient E&M: 40800 Subs Hosp L2
--- NOTE | 2019-01-11 08:00 | RAD_ITS ---
STUDY: X-RAY - ABDOMEN/PELVIS REASON FOR EXAM: Female, 58 years old. Vomiting TECHNIQUE: 5 views COMPARISON: None. FINDINGS: Normal visualized lung bases. There is an unremarkable bowel gas pattern. Mild proximal colonic fecal retention. There is no demonstrated free abdominal air. The visualized liver, spleen and kidneys are grossly normal in size and morphology. Normal soft tissue structures. Vertebral scoliosis. Lower lumbar fusion. Bilateral hip prosthesis. RAD/Abd Inc Decub and/or Erect IMPRESSION: No acute pathology of the abdomen and pelvis. Electronically Signed: Keyon Hart DO at 12:31 EDT Tel [phone], Service support ,
--- NOTE | 2019-01-11 08:01 | PCM.PN.BLA ---
Progress Note renal function continues to improve with good UOP without singh vitals stable. nausea may be related to narcotics. TOlerating diet. Follow up in office with me in 1 week.
[2019-01-11] MEDS: Pantoprazole Sodium 40 MG Tablet PO (10:15)
--- NOTE | 2019-01-11 12:19 | PCM.DC ---
- Discharge Diagnoses Current Active Problems: Current Active and Chronic Problems (Last Reviewed 01/07/19 @ 18:25 by Bridgette Ivory DO) Leukopenia (Chronic) Thrombocytopenia (Acute) Metabolic acidosis (Acute) ARF (acute renal failure) (Acute) Hyperphosphatemia (Acute) Idiopathic right ventricular dilation (Acute) Bronchiectasis (Chronic) HLD (hyperlipidemia) (Chronic) Morbid obesity (Chronic) Hypotension (Acute) You will use the following diet at home:: Cardiac Your food should be the consistency of: Regular Discharge Activity: May Not Drive, May not drive while taking narcotic pain medications. Call your doctor if you observe: Fever of 101 or Higher, Numbness or Tingling, Inability to urinate, Inability to have a bowel movement, Shortness of breath, Dizziness, Fainting spells, Swelling in the ankles, Chest pain, Increased palpitations (irregular heartbeat) Allergies/Adverse Reactions: Allergies Penicillins Allergy (Verified 12/22/18 13:21) Unknown DUST Allergy (Uncoded 12/22/18 13:21) Unknown SEASONAL Allergy (Uncoded 12/22/18 13:21) Unknown Medications to take at Discharge Albuterol Inhaler [Ventolin Hfa] 1 - 2 puff INHALATION Q4H PRN PRN 12/09/18 Pantoprazole Sodium [Protonix] 40 mg PO DAILY 12/09/18 Rosuvastatin Calcium 40 mg PO QHS 12/09/18 Acetaminophen [Tylenol Tablet] 650 mg PO Q6H PRN PRN tab 12/13/18 Oxycodone [Oxyir] 5 - 10 mg PO Q4H PRN PRN 3 Days #10 tablet 01/11/19 Temazepam [Restoril] 30 mg PO QHS PRN PRN #4 cap 01/11/19 The following prescriptions were given: Oxycodone [Oxyir] 5 - 10 mg PO Q4H PRN PRN 3 Days #10 tablet PRN Reason: Severe Pain () Transmission Status: Sent to [facility] Temazepam [Restoril] 30 mg PO QHS PRN PRN #4 cap PRN Reason: Insomnia Transmission Status: Sent to [facility] Primary Care Physician: Karl Moran MD [Primary Care Provider] - Please follow up with your Primary Care Physician in: in 1 week Test Results: Test results from this visit will be discussed in further detail at your follow-up appointment, if applicable. Please Follow Up With: Melissa Winkler DO When: in 1 week Please Follow Up With: Rui Hernandez MD When: in 10 days Please Follow Up With: Sam Padron MD When: in 2 weeks
--- NOTE | 2019-01-11 12:22 | DS.PCM_ITS ---
Discharge Date and Diagnosis Date of Admission: 01/07/19 Date of Discharge: 01/11/19 - Primary Discharge Diagnosis Active and Suspected Problems (Last Reviewed 01/07/19 @ 18:25 by Bridgette Ivory DO) Thrombocytopenia (Acute) Metabolic acidosis (Acute) ARF (acute renal failure) (Acute) Hyperphosphatemia (Acute) Idiopathic right ventricular dilation (Acute) Hypotension (Acute) COPD (chronic obstructive pulmonary disease) (Suspected) - Secondary Discharge Diagnosis Chronic Problems (Last Reviewed 01/07/19 @ 18:25 by Bridgette Ivory DO) Gastroesophageal reflux disease (Chronic) Hypertension (Chronic) Colitis with rectal bleeding (Chronic) Abnormal liver CT (Chronic) hemangioma Leukopenia (Chronic) Bronchiectasis (Chronic) HLD (hyperlipidemia) (Chronic) Morbid obesity (Chronic) Hospital Course and Treatment Imaging Results: 01/11/19 08:00 Abd Inc Decub and/or Erect [RAD] Urgent Operations: None Summary of Care Provided: The patient is a 58-year-old female with history of colitis multiple comorbidities Including obstructive sleep apnea on BiPAP with recent admission for colitis suspect to be secondary to ischemic colitis. Patient continued to have abdominal pain therefore outpatient colonoscopy on 01/07/2019 which was canceled secondary to hypoxia. Patient on 3 L of oxygen. She discharged last time without oxygen. 1. Acute hypoxic respiratory failure: Patient pulse ox 81% on room air in the manager intensive care unit. Currently 96% on 2 L of oxygen. Maintain BiPAP at night ABG 7.30/40 1/75 on room air consistent with increased AA gradient. Furthermore VQ scan was done which reported normal. Patient was also seen by armored car driver. As per armored car driver, patient has severe obstructive sleep apnea and desaturation on sleep study. Patient also has bronchiectasis on CT scan. Patient advised on triple therapy. Does not have significant mucus plugging. Patient need further mobilization and PT and OT. Hypoxia resolved. Last 193% on room air. 2. Bronchiectasis, possible COPD: Obstructive sleep apnea possible has hypoxia during sleep: As mentioned above. 3. Acute kidney injury possible ATN, FeNa more than 1% with high urine sodium 73. Kidney function is improving. Continued improvement in BUN/creatinine for last 3 days, last 01/10.27 after discontinuation of IV fluid on 01/10. Patient seen by precision assembler bench and advised safe to discharge home and follow-up in 1 week after BMP. 4. Chronic abdominal pain: Exact etiology unclear, localized colitis in ascending colon: Patient had colonoscopy on 01/08/2019 which showed localized mild inflammation in the mid ascending colon secondary to colitis. I think her pain is more subjective as she has been treated with antibiotics the past. Change morphine to oxycodone. 5. Biventricular heart failure, with chronic diastolic heart failure and right ventricular dilatation with mild hypotension: patient had echo done on 01/07/2019 reported as EF 65% with grossly normal left ventricular size, wall motion and systolic function but impaired relaxation of LV suggestive of heart failure with preserved EF. Moderately dilated RV. Moderate global right ventricular systolic dysfunction. Trivial MR, trivial TR. RVSP 33 mmHg. Mild hypotension 6. Liver hemangioma, thrombocytopenia and leukopenia: WBC count is 3.3. H&H 10.1/32.3. Platelet count 98,000. Patient has mild leukopenia, WBC count average 2.4k and thrombocytopenia average 100,000 since December 2018. Exact cause of leukopenia and thrombocytopenia unclear. Possible related to acute kidney injury or chronic disease. She underwent right upper quadrant sonogram on 12/23/2018. Reported as normal echogenicity of liver, 17.9 cm. Bile ducts within normal limit. 1.4 x 1.6 cm hypoechoic mass in left hepatic lobe represent hemangioma. Other comorbidities include hypertension, dyslipidemia, anxiety and depression, former smoker quit in 2004, morbid obesity, DVT prophylaxis: Pharmacological prophylaxis contraindicated. Bilateral SCDs Discharge medication reconciliation done. Discharge follow-up instructions completed. Discharge process discussed with the patient and all questions were answered to patient's satisfaction. Patient requested oxycodone and Restoril for 3 to 4 days until she sees PCP next week. Prescription of oxycodone 5 mg every 4 hourly total 10 tablets and Restoril 30 mg nightly. Total for capsule sent to our pharmacy. Total time spent, exact 35 minutes on discharge meds reconciliation, examination, review of imaging and blood test and discussion with the patient on follow-up instructions. Clinical Impression(s) from Imaging Studies Chest X-Ray 01/07/19 12:22 IMPRESSION: Increased markings in the right mid lung as well as at the left lung base suggestive of atelectasis. Renal Ultrasound 01/07/19 16:05 IMPRESSION: Within normal limits ultrasound of the kidneys and urinary bladder. Lung Scan-VQ NM 01/08/19 05:55 IMPRESSION: Normal 99m Tc MAA pulmonary perfusion Tc DTPA aerosol ventilation imaging survey, according to revised PIOPED interpretive criteria. Chest X-Ray 01/08/19 10:00 IMPRESSION: Improvement in aeration of the right mid lung as well as the left lower lobe. Mild residual changes persist. [] Laboratory Results 01/11/19 06:42: Sodium 144, Potassium 4.0, Chloride 110 H, Carbon Dioxide 25.0, BUN 30 H, Creatinine 4.27 H, Estim Creat Clear Calc 14.66, Est GFR (MDRD) Af Amer 14 L, Est GFR (MDRD) Non-Af 11 L, BUN/Creatinine Ratio 7.0 L, Glucose 104, Calcium 8.1 L, Phosphorus 5.5 H, Albumin 2.7 L 01/11/19 06:42: WBC 2.4 L, RBC 3.43 L, Hgb 10.2 L, Hct 33.3 L, MCV 97.1, MCH 29.7, MCHC 30.6 L, RDW Std Deviation 56.0 H, RDW Coeff of Jaun 15.9 H, Plt Count 97 L, MPV 10.1, Immature Gran % (Auto) 0.800, Neut % (Auto) 61.4, Lymph % (Auto) 27.2, Sheridan % (Auto) 8.6, Eos % (Auto) 1.6, Baso % (Auto) 0.4, Absolute Neuts (auto) 1.5 L, Absolute Lymphs (auto) 0.66 L, Nucleated RBC % 0 Subjective: Patient denies any shortness of breath. Urine output has improved. 2700 mL on 01/10 and 2000 mL since morning to 12 noon. Objective: General: Alert, Oriented x3, Cooperative HEENT: Atraumatic, PERRLA, EOMI, Normocephalic Neck: Supple, No JVD, Negative Carotid Bruits Lungs: Clear to auscultation, Normal air movement Cardiovascular: Regular rate, Regular Rhythm, Normal S1, Normal S2, No murmurs, Abdomen: Bowel Sounds Present, Soft, Non Tender, Non-Distended. Extremities: No edema, Capillary Refill Less than 3 Seconds Skin: No rashes, No breakdown Musculoskeletal: No Tenderness to Palpation of Joints or Extremities, Arthritic Changes Neurological: Cranial nerves II-XII grossly intact, Deep Tendon Reflexes 2+/4 and Symmetrical, Neuro grossly intact Psych/Mental Status: Normal Affect, Appropriate - Physical Exam Vital Signs Temp Pulse Resp BP Pulse Ox 98.6 F 105 H 16 111/71 96 01/11/19 10:11 01/11/19 11:00 01/11/19 10:11 01/11/19 10:11 01/11/19 10:11 Oxygen Flow Rate (L/min) 2 Oxygen Delivery Method Nasal Cannula Weight: 270 lb 8.115 oz Body Mass Index (BMI) 41.1 Intake and Output for Last 24 Hours 01/09/19 01/10/19 01/11/19 23:59 23:59 23:59 Intake Total 3781.4 / 3781.4 2754 / 2854 700 / 700 Output Total 2850 / 2850 2675 / 3575 1550 / 1550 Balance 931.4 / 931.4 79 / -721 -850 / -850 Laboratory Tests Past 24 Hrs 01/07/19 01/07/19 01/11/19 14:43 22:21 06:42 WBC RBC Hgb Hct MCV MCH MCHC RDW Std Deviation RDW Coeff of Jaun Plt Count MPV Immature Gran % (Auto) Neut % (Auto) Lymph % (Auto) Sheridan % (Auto) Eos % (Auto) Baso % (Auto) Absolute Neuts (auto) Absolute Lymphs (auto) Nucleated RBC % Eos Smear Total Cells No Eosinophils Seen Sodium 144 Potassium 4.0 Chloride 110 H Carbon Dioxide 25.0 BUN 30 H Creatinine 4.27 H Estim Creat Clear Calc 14.66 Est GFR (MDRD) Af Amer 14 L Est GFR (MDRD) Non-Af 11 L BUN/Creatinine Ratio 7.0 L Glucose 104 Calcium 8.1 L Phosphorus 5.5 H Albumin 2.7 L ZOYA Screen Negative 01/11/19 06:42 WBC 2.4 L RBC 3.43 L Hgb 10.2 L Hct 33.3 L MCV 97.1 MCH 29.7 MCHC 30.6 L RDW Std Deviation 56.0 H RDW Coeff of Jaun 15.9 H Plt Count 97 L MPV 10.1 Immature Gran % (Auto) 0.800 Neut % (Auto) 61.4 Lymph % (Auto) 27.2 Sheridan % (Auto) 8.6 Eos % (Auto) 1.6 Baso % (Auto) 0.4 Absolute Neuts (auto) 1.5 L Absolute Lymphs (auto) 0.66 L Nucleated RBC % 0 Eos Smear Total Cells Sodium Potassium Chloride Carbon Dioxide BUN Creatinine Estim Creat Clear Calc Est GFR (MDRD) Af Amer Est GFR (MDRD) Non-Af BUN/Creatinine Ratio Glucose Calcium Phosphorus Albumin ZOYA Screen Discharge Activity: May Not Drive, May not drive while taking narcotic pain med ications. Call your doctor if you observe: Fever of 101 or Higher, Numbness or Tingling, Inability to urinate, Inability to have a bowel movement, Shortness of breath, Dizziness, Fainting spells, Swelling in the ankles, Chest pain, Increased palpitations (irregular heartbeat) Home Medications: Medications to take at Discharge Albuterol Inhaler [Ventolin Hfa] 1 - 2 puff INHALATION Q4H PRN PRN 12/09/18 Pantoprazole Sodium [Protonix] 40 mg PO DAILY 12/09/18 Rosuvastatin Calcium 40 mg PO QHS 12/09/18 Acetaminophen [Tylenol Tablet] 650 mg PO Q6H PRN PRN tab 12/13/18 Oxycodone [Oxyir] 5 - 10 mg PO Q4H PRN PRN 3 Days #10 tab 01/11/19 Temazepam [Restoril] 30 mg PO QHS PRN PRN #4 cap 01/11/19 Following Prescrptions Were Given to Patient: Oxycodone [Oxyir] 5 - 10 mg PO Q4H PRN PRN 3 Days #10 tab PRN Reason: Severe Pain () Transmission Status: Received by [facility] Temazepam [Restoril] 30 mg PO QHS PRN PRN #4 cap PRN Reason: Insomnia Transmission Status: Received by [facility] Primary Care Physician: Karl Moran MD [Primary Care Provider] - Please follow up with your Primary Care Physician in: in 1 week Please Follow Up With: Melissa Winkler DO When: in 1 week Please Follow Up With: Rui Hernandez MD When: in 10 days Please Follow Up With: Sam Padron MD When: in 2 weeks Medical Necessity - Tobacco Use Smoking Status: Former smoker - Quit in 2004 Tobacco Use: Non-smoker Meaningful Use Info Meaningful Use Diagnoses (Choose all that apply): None applicable Code Visit Inpatient E&M: 18943 Subs Hosp L3
--- NOTE | 2019-01-13 13:48 | CASEMGMT ---
RN HORACIO DC PHONE CALL DC DATE: 01/11/19 DC Disposition: Home Diagnosis on Discharge: Leukopenia, Thrombocytopenia LACE/STRATA: 02/04 Intro role of CM to patient via phone. Pt states she does not have questions re: prescriptions, f/u or instructions. No care improvement suggestions given. Curt LYNCHN RN ACM
== END 2019-01-11 13:14 | disposition home or self-care (01) | DRG 683 ==
LOC: PCU 01-08 07:12 → EN 01-08 10:46 → PCU 01-08 10:47
PROVIDERS: Internal Medicine; Internal Medicine Nephrology; Admitting Provider Surgery; Family Provider Family Medicine; PCP Family Medicine; Referring Provider Family Medicine; Visit Provider Internal Medicine
DX: N17.0 Acute kidney failure with tubular necrosis (principal); D61.818 Other pancytopenia; I50.32 Chronic diastolic (congestive) heart failure; Z68.41 Body mass index [BMI] 40.0-44.9, adult; K52.9 Noninfective gastroenteritis and colitis, unspecified; G47.33 Obstructive sleep apnea (adult) (pediatric); E66.01 Morbid (severe) obesity due to excess calories; E78.5 Hyperlipidemia, unspecified; E83.39 Other disorders of phosphorus metabolism; D18.03 Hemangioma of intra-abdominal structures; I11.0 Hypertensive heart disease with heart failure; G89.29 Other chronic pain; I50.82 Biventricular heart failure; I95.9 Hypotension, unspecified; J47.9 Bronchiectasis, uncomplicated; Z87.442 Personal history of urinary calculi; Z87.891 Personal history of nicotine dependence
CPT/HCPCS: 36415; 36600; 71045; 71046; 74019; 76770; 78582; 80048; 80053; 80069; 81001; 82436; 82570; 82803; 83735; 83930; 83935; 84100; 84133; 84300; 85025; 85027; 85610; 85652; 85730; 86038; 86140; 86225; 86235; 86431; 87205; 88305; 93306; 94640; 94762; 97802; A9540; A9567; J7030; J7050; J7120; Q9957; A4216; C8929

== ENCOUNTER → 2019-04-24 09:44 | Outpatient (CLI) | payer OTHER, SELFPAY ==
[2019-01-27 08:14] VITALS: BMI 40.1
--- NOTE | 2019-04-28 07:37 | PFT ---
INTRODUCTION: The patient is a 58-year-old female that presents for pulmonary function studies secondary to a diagnosis of dyspnea. Respiratory therapy reports good patient effort. Bronchodilators were used during testing. INTERPRETATION: Forced expiration spirometry demonstrates no evidence of a large airways obstructive ventilatory defect. There was no significant response to aerosolized bronchodilators. Spirograms are of good quality and plateau normally. Body plethysmography was performed and reveals a decrease TLC to 3.97 L, 69% of predicted, indicative of a moderate restrictive ventilatory impairment. The remainder of the lung volumes are symmetrically reduced. Diffusing capacity by single breath CO is reduced at 56% of predicted. IMPRESSION: Moderate restrictive ventilatory impairment with symmetric reduction in diffusing capacity.
== END ==
PROVIDERS: Family Provider Family Medicine; PCP Family Medicine; Referring Provider Nurse Practitioner Acute Care; Visit Provider Nurse Practitioner Acute Care
DX: R06.00 Dyspnea, unspecified (principal)
CPT/HCPCS: 94060; 94726; 94729

== ENCOUNTER → 2019-04-25 12:24 | Outpatient (CLI) | payer OTHER, SELFPAY ==
[2019-04-25 09:22] VITALS: BMI 41.5
[2019-04-25 12:57] LABS: Anion Gap 6 (5-15); BUN 14 mg/dL (7-18); BUN/Creat Ratio 10.3 RATIO (10-20); Calcium,Total 8.9 mg/dL (8.5-10.1); Chloride 108 mmol/L (98-107); Creatinine, Serum 1.36 mg/dL (0.55-1.02); EST Glomerular Filtration Rate 43 mL/min (>60); Est Glom Filt Rate - Afr Amer 52 mL/min (>60); Glucose 103 mg/dL (74-106); Potassium 3.8 mmol/L (3.5-5.1); Sodium Level 146 mmol/L (136-145)
[2019-04-25 13:11] LABS: D-Dimer Quantitative (DVT/PE) 0.58 FEU/ug/m (0.27-0.49)
== END ==
PROVIDERS: Family Provider Family Medicine; PCP Family Medicine; Referring Provider Nurse Practitioner Acute Care; Visit Provider Nurse Practitioner Acute Care
DX: R06.02 Shortness of breath (principal)
CPT/HCPCS: 36415; 80048; 85379

== ENCOUNTER 2019-04-25 13:30 | Emergency (ER) | payer OTHER, SELFPAY ==
[2019-04-25 09:22] VITALS: BMI 41.5
[2019-04-25 13:32] VITALS: BP 169/78; PULSE 102; RESP 14; TEMP 36.7; O2SAT 96; BMI 41.4
[2019-04-25 13:42] VITALS: RESP 18
[2019-04-25] MEDS: Mag Hydrox/Al Hydrox/Simeth 30 ML UDC PO (14:06)
--- NOTE | 2019-04-25 15:02 | ED.VIS.GEN ---
History of Present Illness Chief Complaint: Sore Throat Detail of Chief Complaint: Pain with swallowing in the epigastric area Informant: Patient Onset: Days Context: Sudden Onset Timing: Intermittent Quality: Pain near xiphoid process epigastrium with swallowing Location: Epigastric region Current Severity: Presently no discomfort Maximum Severity: Severe Worsened by: S swallowing anything Relieved by: Nothing Associated Symptoms: No other symptoms Narrative: Presents with epigastric burning sensation with swallowing since Sunday. She has no exertional symptoms. It is not positional. There is no hematemesis, melena hematochezia. She is status post cholecystectomy. She has no respiratory symptoms. She denies leg pain, swelling discoloration. She presented because she thought that she thought I would be able to obtain an emergent CAT scan. Patient did have outpatient blood work. D-dimer is slightly elevated. However there is no concern for PE and will not pursue. Creatinine is elevated 1.36. BUN to creatinine ratio is normal. Patient denies fever, chills or night sweats. She denies history of trauma. There is no radiation of the pain to her back. She has not had pain like this before. She believes she has a hiatal hernia. She denies history of reflux. She does not give symptoms of reflux. Prior similar symptoms: No Recent Illness/Hospitalization: No - Past Medical History (1) Anxiety Status: Chronic (2) Asthma Status: Chronic (3) Chronic renal failure Status: Chronic (4) Colitis Status: Chronic (5) Colitis with rectal bleeding Status: Chronic (6) Gastroesophageal reflux disease Status: Chronic (7) HLD (hyperlipidemia) Status: Chronic (8) Hypertension Status: Chronic (9) GENNARO (obstructive sleep apnea) Status: Chronic (10) COPD (chronic obstructive pulmonary disease) Status: Suspected (11) History of appendectomy Status: Resolved (12) History of cholecystectomy Status: Resolved (13) History of hysterectomy Status: Resolved (14) History of tubal ligation Status: Resolved Past Medical History - Allergies and Home Meds Allergies/Adverse Reactions: Allergies Penicillins Allergy (Verified 04/25/19 13:35) Unknown DUST Allergy (Uncoded 04/25/19 13:35) Unknown SEASONAL Allergy (Uncoded 04/25/19 13:35) Unknown Primary Care Physician: Karl Moran MD [Primary Care Provider] - Prior records reviewed: Yes - Per old records she does have history of reflux. Surgical History: adenoidectomy, appendectomy, cholecystectomy, herniorrhaphy, hysterectomy, - Smoking Status: Former smoker - Family History Maternal Family History: Family History (Last Reviewed 04/25/19 @ 12:00 by LUCA Crawford) Father Colon cancer Mother Cancer Family History: Reports: - Paternal Family History: Family History (Last Reviewed 04/25/19 @ 12:00 by LUCA Crawford) Father Colon cancer Mother Cancer Family History: Reports: Hypertension Review of Systems General: Denies: Chills, Fever, Sweats Eyes: Denies: Visual changes - bilaterally, Diplopia ENT: Denies: Rhinorrhea, Sore throat Cardiovascular: Reports: Chest pain - With swallowing in the subxiphoid region Respiratory: Denies: Dyspnea, Cough, Dyspnea on exertion Gastrointestinal: Reports: Abdominal pain. Denies: Nausea, Vomiting, Diarrhea, Constipation, Melena, Hematochezia, -, - Genitourinary: Denies: Dysuria, Hematuria, Frequency Musculoskeletal: Denies: Myalgias, Arthralgias, Neck pain, Back pain, Swelling, Extremity Pain, -, - Neurological: Denies: Headache, Weakness, Parasthesia, Numbness Psych: Reports: Depression - Per old records Hematologic: Denies: Easy bruising, Easy bleeding Physical Exam Vital Signs/Narrative: Vital Signs Temp Pulse Resp BP Pulse Ox 04/25/19 13:42 18 04/25/19 13:32 98.1 F 102 H 14 169/78 H 96 Inital Vital Signs reviewed: Yes General: Well nourished, Well developed, Obese, No Acute Distress Head: Normocephalic, Atraumatic Eyes: Perrl, EOMI ENT: Moist mucous membranes, No rhinorrhea Neck: Supple, Nontender Cardiovascular: Regular rate, Regular rhythm, No murmurs, Normal S1, Normal S2 Respiratory: No distress, CTA bilaterally, Chest nontender Abdomen: Soft, Nontender, Nondistended, Normal bowel sounds, No masses Back: Nontender, Normal Inspection Extremities: Nontender, No edema Skin: Normal color, No rash Neurological: Alert, Oriented x3, Cranial nerves II-XII grossly intact, Normal Strength, Normal Sensation Psychological: Depressed Diagnostic/Tx/Re-eval - Medical Decision Making Outpatient lab results were reviewed. There is no significant change from prior. The d-dimer is nonspecific and since she has no symptoms for PE will not obtain CTA. Patient was treated with GI cocktail. I was informed she had no improvement. She is receiving IV Pepcid and Carafate slurry. Since she has seen Dr. Humphries and he is rehabilitation caseworker he was contacted. He was made aware patient's history and physical and need for outpatient EGD. Patient refused Carafate slurry. She was informed to contact Dr. Humphries and he will make arrangements for EGD. ED Disposition - Plan for ED Patient: Disposition: Home or Assisted Living Diagnosis: Acute epigastric pain, Dyspepsia Instructions: EPIGASTRIC PAIN (Uncertain cause) Prescriptions: Sucralfate [Carafate] 1 gm PO 4X/DAY #60 tab Transmission Status: Pending to [id number] Referrals: Karl Moran MD [Primary Care Provider] - Rui Hernandez MD [STAFF PHYSICIAN] - Additional Instructions: Call Dr. Humphries's office on Sunday to be seen and have a EGD performed.
[2019-04-25] MEDS: Famotidine 200 MG/20 ML MDV 20 MG in 0.9% Normal Saline (Pres. free 8 ML 300 MG IV (15:12)
[2019-04-25] MEDS: Sucralfate 1 GM Tablet PO (15:40)
[2019-04-25 15:44] VITALS: BP 139/91
== END 2019-04-25 15:49 | disposition home or self-care (01) ==
PROVIDERS: Emergency Provider Emergency Medicine; Family Provider Family Medicine; PCP Family Medicine
DX: R10.13 Epigastric pain (principal); E66.9 Obesity, unspecified; N18.9 Chronic kidney disease, unspecified; K21.9 Gastro-esophageal reflux disease without esophagitis; E78.5 Hyperlipidemia, unspecified; G47.33 Obstructive sleep apnea (adult) (pediatric); J44.9 Chronic obstructive pulmonary disease, unspecified; Z87.19 Personal history of other diseases of the digestive system; Z90.49 Acquired absence of other specified parts of digestive tract; Z79.899 Other long term (current) drug therapy; Z87.891 Personal history of nicotine dependence
CPT/HCPCS: 96374; 99284; A4216; J3490

== ENCOUNTER → 2019-05-07 12:32 | Outpatient (CLI) | payer OTHER, SELFPAY ==
[2019-01-27 08:14] VITALS: BMI 40.1
[2019-04-25 13:32] VITALS: BMI 41.4
--- NOTE | 2019-05-07 13:04 | CT_ITS ---
STUDY: CT CHEST WITHOUT CONTRAST REASON FOR EXAM: Female, 58 years old. Cough and low oxygen levels RADIATION DOSAGE (If Supplied By Facility): CTDIvol = ( 23.90 ) mGy, DLP = ( 775.30 ) mGycm TECHNIQUE: Transaxial imaging was performed without the administration of intravenous contrast material. Individualized dose optimization techniques were used for this CT. COMPARISON: December 22, 2018. FINDINGS: There is a small focus of groundglass opacity within the superior aspect of the right lower lobe series 4 image 34 as well as thickening of the right major fissure. The lungs are otherwise unremarkable without evidence of a diffuse interstitial process. There is no demonstrated pleural abnormality. There are calcifications of the coronary arteries. Normal mediastinum. Normal hilar regions. Normal unenhanced pulmonary arteries. There is atherosclerotic calcification of the aortic arch with tortuosity and elongation of the aortic arch and descending thoracic aorta. There are multi-level degenerative changes of the thoracic spine. There is no demonstrated abnormality of the visualized upper abdomen. CT/Chest without Contrast IMPRESSION: No evidence for diffuse interstitial lung disease. Small focus of groundglass opacity within the right lower lobe and thickening of the right major fissure may represent a recurrent residual abnormality from the previously noted pneumonia. Consider interval follow-up to document stability/resolution of these findings. Electronically Signed: Mikey Young, at 14:07 EST Tel , Service support ,
[2019-05-07 13:43] VITALS: PULSE 105; PULSE 106; PULSE 108; PULSE 111; PULSE 118; PULSE 119; PULSE 127; PULSE 138; O2SAT 88; O2SAT 91; O2SAT 92; O2SAT 93; O2SAT 96; O2SAT 98
--- NOTE | 2019-05-07 13:51 | CPS ---
Patient arrived without oxygen on room air without oxygen. States she already has oxygen at home. Dr Padron spoke to patient at end of test about wearing oxygen with exertion.
--- NOTE | 2019-05-07 16:55 | PCM.PSN.6M ---
PSN 6 Minute Walk Test - 6 Minute Walk Test 6 Minute Walk Test: 6 Minute Walk Test PSN:6-Minute Walk Test Start: 05/07/19 13:43 Freq: Status: Active Protocol: [id number].6MINW Document 05/07/19 13:43 SMB (Rec: 05/07/19 13:53 SMB [id number]) 6 Minute Walk Test Date Performed 05/07/19 Time Performed 12:36 Height 5 ft 8 in Weight: 120.656 kg Weight in Pounds 266.[address]: Patricia Vallejo Assistive device used: None Pre-test Oxygen Delivery Method Room Air Pulse Ox (%) 96 Pulse Rate (60-100 beats/min) 106 H Dyspnea Joshua Scale (0-10) 0 Exertion Joshua Scale (6-20) 12 1st minute Oxygen Delivery Method Room Air Pulse Ox (%) 93 Pulse Rate (60-100 beats/min) 105 H 2nd minute Oxygen Flow Rate (L/min) (L/min) 2 Oxygen Delivery Method Nasal Cannula Pulse Ox (%) 88 Pulse Rate (60-100 beats/min) 119 H 3rd minute Oxygen Flow Rate (L/min) (L/min) 2 Oxygen Delivery Method Nasal Cannula Pulse Ox (%) 93 Pulse Rate (60-100 beats/min) 111 H 4th minute Oxygen Flow Rate (L/min) (L/min) 2 Oxygen Delivery Method Nasal Cannula Pulse Ox (%) 92 Pulse Rate (60-100 beats/min) 118 H 5th minute Oxygen Flow Rate (L/min) (L/min) 2 Oxygen Delivery Method Nasal Cannula Pulse Ox (%) 91 Pulse Rate (60-100 beats/min) 127 H 6th minute Oxygen Flow Rate (L/min) (L/min) 2 Oxygen Delivery Method Nasal Cannula Pulse Ox (%) 92 Pulse Rate (60-100 beats/min) 138 H Post-test Oxygen Flow Rate (L/min) (L/min) 2 Oxygen Delivery Method Nasal Cannula Pulse Ox (%) 98 Pulse Rate (60-100 beats/min) 108 H Dyspnea Joshua Scale (0-10) 3 Exertion Joshua Scale (6-20) 13 Full Laps Walked 18 Partial Lap, Number of Tiles Walked 11 Total Distance Walked (ft) 1073 05/07/19 13:51 Cardiopulmonary Services by Samanta Jefferson Patient arrived without oxygen on room air without oxygen. States she already has oxygen at home. Dr Padron spoke to patient at end of test about wearing oxygen with exertion. Initialized on 05/07/19 13:51 - END OF NOTE - Interpretation Interpretation: The patient was noted to be 96% on room air. The patient did desaturate to 88% with ambulation in the second minute. The patient was placed on 2 L nasal cannula and was able to complete walking oximetry. Patient did have a peak heart rate of 138 bpm. These findings are consistent with a respiratory limitation exercise tolerance. In total, the patient traveled 1073 feet over the course of 6 minutes with no assistive devices or breaks. - Recommendations Recommendations: Patient requires no supplemental oxygen at rest, but should be using 2 L nasal cannula with any exertion.
== END ==
PROVIDERS: Family Provider Family Medicine; PCP Family Medicine; Referring Provider Nurse Practitioner Acute Care; Visit Provider Nurse Practitioner Acute Care
DX: J44.9 Chronic obstructive pulmonary disease, unspecified (principal); J98.4 Other disorders of lung
CPT/HCPCS: 71250; 94618

== ENCOUNTER → 2019-05-12 11:20 | Outpatient (CLI) | payer OTHER, SELFPAY ==
[2019-05-12 07:51] VITALS: BMI 40.5
== END ==
PROVIDERS: Family Provider Family Medicine; PCP Family Medicine; Referring Provider Nurse Practitioner Acute Care; Visit Provider Nurse Practitioner Acute Care
DX: J47.0 Bronchiectasis with acute lower respiratory infection (principal)
CPT/HCPCS: 94667

== ENCOUNTER → 2019-06-18 10:36 | Outpatient (CLI) | payer OTHER, SELFPAY ==
[2019-05-22 11:13] VITALS: BMI 40.5
[2019-06-18 11:29] LABS: Anion Gap 5 (5-15); BUN 22 mg/dL (7-18); BUN/Creat Ratio 15.7 RATIO (10-20); Calcium,Total 9.3 mg/dL (8.5-10.1); Chloride 104 mmol/L (98-107); EST Glomerular Filtration Rate 41 mL/min (>60); Est Glom Filt Rate - Afr Amer 50 mL/min (>60); Glucose 102 mg/dL (74-106); Potassium 3.9 mmol/L (3.5-5.1); Sodium Level 141 mmol/L (136-145)
== END ==
PROVIDERS: Family Provider Family Medicine; PCP Family Medicine; Referring Provider Nurse Practitioner Acute Care; Visit Provider Nurse Practitioner Acute Care
DX: R06.02 Shortness of breath (principal)
CPT/HCPCS: 36415; 80048

== ENCOUNTER → 2019-07-02 09:02 | Outpatient (CLI) | payer OTHER, SELFPAY ==
[2019-05-22 11:13] VITALS: BMI 40.5
[2019-07-02 09:49] LABS: Anion Gap 6 (5-15); BUN 22 mg/dL (7-18); BUN/Creat Ratio 16.4 RATIO (10-20); Calcium,Total 9.7 mg/dL (8.5-10.1); Chloride 102 mmol/L (98-107); Creatinine, Serum 1.34 mg/dL (0.55-1.02); EST Glomerular Filtration Rate 43 mL/min (>60); Est Glom Filt Rate - Afr Amer 52 mL/min (>60); Glucose 135 mg/dL (74-106); Sodium Level 139 mmol/L (136-145)
== END ==
PROVIDERS: PCP Family Medicine; Referring Provider Nurse Practitioner Acute Care; Visit Provider Nurse Practitioner Acute Care
DX: N18.9 Chronic kidney disease, unspecified (principal)
CPT/HCPCS: 36415; 80048

== ENCOUNTER → 2019-09-16 12:04 | Outpatient (CLI) | payer OTHER, SELFPAY ==
[2019-08-12 06:13] VITALS: BMI 39.4
[2019-09-16 13:05] LABS: Anion Gap 6 (5-15); BUN 22 mg/dL (7-18); BUN/Creat Ratio 14.5 RATIO (10-20); Chloride 102 mmol/L (98-107); Creatinine, Serum 1.52 mg/dL (0.55-1.02); EST Glomerular Filtration Rate 37 mL/min (>60); Est Glom Filt Rate - Afr Amer 45 mL/min (>60); Glucose 113 mg/dL (74-106); Magnesium 1.9 mg/dL (1.6-2.6); Potassium 2.7 mmol/L (3.5-5.1); Sodium Level 139 mmol/L (136-145)
== END ==
PROVIDERS: PCP Family Medicine; Visit Provider Internal Medicine Nephrology
DX: E87.6 Hypokalemia (principal)
CPT/HCPCS: 36415; 80048; 83735

== ENCOUNTER → 2019-09-29 | Outpatient (CLI) | payer OTHER, SELFPAY ==
[2019-08-12 06:13] VITALS: BMI 39.4
== END | disposition home or self-care (01) ==
LOC: LABSPEC 11:46
PROVIDERS: PCP Family Medicine; Referring Provider Nurse Practitioner Acute Care; Visit Provider Nurse Practitioner Acute Care
DX: Z20.828 Contact with and (suspected) exposure to other viral communicable diseases (principal)
CPT/HCPCS: 87635; G2023; U0004

== ENCOUNTER 2019-10-01 10:25 | Inpatient (IN) | payer OTHER, MEDICARE, SELFPAY ==
[2019-08-12 06:13] VITALS: BMI 39.4
[2019-10-01] VITALS (8 sets, daily range): BP systolic 112–137; BP diastolic 71–98; PULSE 89–114; RESP 16–22; TEMP 36.8–37.7; O2SAT 96–100; BMI 40.0; BMI 38.5
--- NOTE | 2019-10-01 10:26 | EKG12_ITS ---
Test Reason : SOB/COUGH/CP Blood Pressure : / mmHG Vent. Rate : 104 BPM Atrial Rate : 104 BPM P-R Int : 134 ms QRS Dur : 120 ms QT Int : 368 ms P-R-T Axes : 060 084 031 degrees QTc Int : 483 ms Sinus tachycardia Low voltage QRS Right bundle branch block Abnormal ECG Confirmed by SHERYL CLINTON, JOSE ([id number]), editor school photograph CHRISS MORA ([id number]) on 10/06/2019 2:14:11 PM Referred By: ROSENDO Confirmed By:JOSE SAUCEDO MD
--- NOTE | 2019-10-01 10:26 | RAD_ITS ---
STUDY: X-RAY CHEST REASON FOR EXAM: Female, 58 years old. Positive covid test, short of breath, fever, sweats TECHNIQUE: Single AP portable view of the chest. COMPARISON: Comparison is made with prior study dated January 08, 2019. FINDINGS: EKG electrodes are seen. Mild degree of increased markings at the left lung base suggestive of left basilar atelectasis and/or infiltrate. There is no demonstrated pleural abnormality. Normal size heart. Normal mediastinum and myriam. Normal visualized pulmonary arteries. There is atherosclerotic tortuosity of the aortic arch and descending thoracic aorta. There are diffuse degenerative changes of the visualized thoracic spine. Normal visualized ribs, clavicles, and shoulders. There is no demonstrated abnormality of the visualized soft tissue structures of the upper abdomen. RAD/Chest 1 View (Portable) IMPRESSION: Mild increased markings at the left lung base suggestive of atelectasis and/or early infiltrate. The right lung is clear. Electronically Signed: Kamran Velazquez, at 11:45 EDT , Service support ,
--- NOTE | 2019-10-01 10:28 | ED.VIS.GEN ---
History of Present Illness Chief Complaint: Shortness of Breath Informant: Patient Onset: Days - Onset Sunday Context: Sudden Onset - , September 27 Timing: Continuous Quality: Upper respiratory symptoms, productive cough, GI symptoms Location: Predominantly respiratory Current Severity: Moderate Maximum Severity: Severe Worsened by: Increased shortness of breath with activity Relieved by: Nothing Associated Symptoms: Read HPI Narrative: Patient is a middle-age woman with history of pulmonary hypertension, congestive heart failure, hypertension, hypercholesterolemia who presents because of shortness of breath. Pulse ox readings at home in the 80s. Patient had COVID test performed and was contacted this morning. She was informed that her test is positive. She does complain of bilateral/global headache, denies photophobia. Does complain of neck pain. Denies neck stiffness. Does report rhinorrhea, congestion postnasal drainage and sore throat. Denies loss of taste or smell. Cough is productive of whitish cream-colored sputum. She also reports central pleuritic chest pain with coughing. She denies history of VTE. She has remote history of superficial thrombophlebitis. She denies urologic symptoms. She denies joint swelling. She denies skin rash. Prior similar symptoms: No Recent Illness/Hospitalization: Yes - Infected obstructed parotid duct - Past Medical History (1) Anemia Status: Acute (2) Endocarditis Status: Acute (3) Gastritis Status: Acute (4) Hyperphosphatemia Status: Acute (5) Idiopathic right ventricular dilation Status: Acute (6) Restrictive lung disease Status: Acute (7) Thrombocytopenia Status: Acute (8) Anxiety Status: Chronic (9) Bronchiectasis Status: Chronic (10) Chronic renal failure Status: Chronic (11) Colitis Status: Chronic (12) Gastroesophageal reflux disease Status: Chronic (13) Hypertension Status: Chronic (14) Morbid obesity Status: Chronic (15) GENNARO (obstructive sleep apnea) Status: Chronic Past Medical History - Allergies and Home Meds Allergies/Adverse Reactions: Allergies Penicillins Allergy (Verified 05/22/19 11:07) Unknown DUST Allergy (Uncoded 05/12/19 10:13) Unknown SEASONAL Allergy (Uncoded 05/12/19 10:13) Unknown Primary Care Physician: Karl Moran MD [Primary Care Provider] - Prior records reviewed: Yes Surgical History: adenoidectomy, appendectomy, cholecystectomy, herniorrhaphy, hysterectomy, - Lives: Spouse/ Significant Other Smoking Status: Former smoker Alcohol: None Drugs: None - Family History Maternal Family History: Family History (Last Reviewed 05/22/19 @ 11:23 by LUCA Crawford) Father Colon cancer Mother Cancer Family History: Reports: - Paternal Family History: Family History (Last Reviewed 05/22/19 @ 11:23 by LUCA Crawford) Father Colon cancer Mother Cancer Family History: Reports: Hypertension Review of Systems General: Reports: Chills, Fever, Malaise. Denies: Subjective, Sweats, Weight loss Eyes: Denies: Visual changes - bilaterally, Blurred Vision - bilaterally, Diplopia ENT: Reports: Rhinorrhea, Sore throat. Denies: Bilateral ear pain Cardiovascular: Reports: Chest pain, Heart racing. Denies: Palpitations Respiratory: Reports: Dyspnea, Cough, Sputum, Dyspnea on exertion. Denies: Orthopnea, Paroxysmal nocturnal dyspnea Gastrointestinal: Reports: Abdominal pain, Nausea, Vomiting, Diarrhea. Denies: Constipation, Melena, Hematochezia Genitourinary: Denies: Dysuria, Hematuria, Frequency Musculoskeletal: Reports: Myalgias. Denies: Arthralgias, Neck pain, Back pain, Swelling, Extremity Pain, -, - Skin: Denies: Rash, Wounds Neurological: Reports: Headache. Denies: Weakness, Parasthesia, Numbness Psych: Denies: Depression, Anxiety Hematologic: Denies: Easy bruising, Easy bleeding Allergy: Denies: Uticaria, Swelling of the mouth, Swelling of the tongue Physical Exam Inital Vital Signs reviewed: Yes General: Well nourished, Well developed, Obese, Acute Distress Head: Normocephalic, Atraumatic Eyes: Perrl, EOMI. Negative for: Pale conjunctiva, Scleral icterus ENT: TM's clear, Dry mucous membranes. Negative for: No rhinorrhea Neck: Supple, Nontender, No lymphadenopathy, No JVD Cardiovascular: Regular rate, Regular rhythm, No murmurs, Normal S1, Normal S2 Respiratory: Chest nontender, Rales - End inspiratory rales noted bilaterally at the base. Negative for: No distress, CTA bilaterally Abdomen: Soft, Nontender, Nondistended, Normal bowel sounds Back: Nontender, Normal Inspection. Negative for: CVA tenderness Extremities: Nontender, No edema, - - There is no asymmetry, swelling, discoloration, leg vein distention, palpable cords or tenderness along the distribution of the deep venous system.. Negative for: Tenderness, Edema Skin: Normal color, No Trauma, Rash - Lenticular rash lower extremity with delayed capillary refill of approximately 3 seconds. Negative for: Cyanosis, Diaphoresis, Jaundice Neurological: Alert, Oriented x3, Cranial nerves II-XII grossly intact, Normal Strength, Normal Sensation Psychological: - - Patient anxious and tearful Diagnostic/Tx/Re-eval Chest X-Ray - ED: 1 View, Read by ED Physician, Normal, Heart, Mediastinum, Bony Structures, - - . 2 chest x-ray January 2019 there is mild increased interstitial markings left lower lobe. There is no obvious infiltrate. There is no effusion. Interpreted at 1126 10/01/19 10:26 Chest 1 View (Portable) [RAD] Stat Laboratory Results 10/01/19 10/01/19 10/01/19 10:45 10:45 10:45 WBC 1.9 L RBC 3.38 L Hgb 10.6 L Hct 33.8 L MCV 100.0 H MCH 31.4 MCHC 31.4 L RDW Std Deviation 57.9 H RDW Coeff of Jaun 15.8 H Plt Count 131 L MPV 9.5 Immature Gran % (Auto) 0.500 Neut % (Auto) 60.7 Lymph % (Auto) 26.9 [place] % (Auto) 11.4 H Eos % (Auto) 0.5 Baso % (Auto) 0.0 Absolute Neuts (auto) 1.2 L Absolute Lymphs (auto) 0.52 L Nucleated RBC % 1.0 PT 12.6 INR 1.0 APTT 27.4 Sodium 137 Potassium 4.0 Chloride 106 Carbon Dioxide 24.0 Anion Gap 7 BUN 12 Creatinine 1.23 H Estim Creat Clear Calc 50.90 Est GFR (MDRD) Af Amer 58 L Est GFR (MDRD) Non-Af 48 L BUN/Creatinine Ratio 9.8 L Glucose 89 Lactic Acid Calcium 8.4 L Total Bilirubin 0.80 AST 48 H ALT 46 Alkaline Phosphatase 111 Total Protein 6.4 Albumin 3.3 Globulin 3.1 Albumin/Globulin Ratio 1.1 10/01/19 10:45 WBC RBC Hgb Hct MCV MCH MCHC RDW Std Deviation RDW Coeff of Jaun Plt Count MPV Immature Gran % (Auto) Neut % (Auto) Lymph % (Auto) [place] % (Auto) Eos % (Auto) Baso % (Auto) Absolute Neuts (auto) Absolute Lymphs (auto) Nucleated RBC % PT INR APTT Sodium Potassium Chloride Carbon Dioxide Anion Gap BUN Creatinine Estim Creat Clear Calc Est GFR (MDRD) Af Amer Est GFR (MDRD) Non-Af BUN/Creatinine Ratio Glucose Lactic Acid 0.9 Calcium Total Bilirubin AST ALT Alkaline Phosphatase Total Protein Albumin Globulin Albumin/Globulin Ratio - Rhythm Strip Rhythm Strip: Sinus Tach Rate: 111 Ectopy: None - EKG Initial EKG Interpretation: Sinus Tachycardia - Regular rate is 104. TX interval is 134 ms. QS duration 120 ms. QT duration 368 ms. QRS morphology is consistent with right bundle branch block. There is decreased voltage in the limb leads. This is unchanged from December 22, 2018. - Medical Decision Making Patient with respiratory failure/hypoxia secondary to COVID infection. Since patient is tachycardic complains of fever tachypnic and hypoxic sepsis work-up was initiated. Once laboratory results are back for review will discuss case with hospitalist and Dr. Padron who sent patient to the emergency department. ED Disposition - Plan for ED Patient: Disposition: Acute Care Hospital [facility] Diagnosis: Respiratory failure with hypoxia, Respiratory tract infection due to COVID-19 virus, Pancytopenia, Chronic renal insufficiency, stage I, Morbid obesity Referrals: Karl Moran MD [Primary Care Provider] -
[2019-10-01 10:54] LABS: Absolute Lymphocyte Count 0.52 X10^3/uL (0.83-4.51); Absolute Neutrophil Count 1.2 X10^3/uL (2.0-7.7); Eosinophil# 0.01 X10^3/uL; Eosinophils% 0.5 % (0-5); Hematocrit 33.8 % (37-47); Hemoglobin 10.6 g/dL (12.0-15.0); Lymphocyte # 0.52 X10^3/ul (4.0); Lymphocyte % 26.9 % (19-41); Mean Corp Hgb Conc 31.4 g/dL (32-36); Mean Corpuscular Hgb 31.4 pg (27.0-32.0); Mean Platelet Vol. 9.5 fl (6.2-12.0); Monocyte# 0.22 X10^3/uL; Monocyte% 11.4 % (0-10); Neutrophil # 1.17 X10^3/uL (2.7-7.7); Neutrophil % 60.7 % (47-70); POSITIVE DIFFERENTIAL YES; Platelet Count 131 K/mm3 (150-450); RBC Distribution Width CV 15.8 % (11.6-14.6); RBC Distribution Width SD 57.9 fl (35.1-43.9); Red Blood Count 3.38 M/mm3 (4.2-5.4); White Blood Count 1.9 K/mm3 (4.4-11.0)
[2019-10-01 11:04] LABS: Differential Indicated SCAN CRITERIA MET
[2019-10-01 11:07] LABS: Partial Thromboplast Time 27.4 Seconds (24.1-36.2); Prothrombin Time (Protime)PT. 12.6 SECONDS (11.7-14.9)
[2019-10-01 11:10] LABS: ALB/GLOB Ratio 1.1 RATIO (0.9-2.4); AST(SGOT) 48 U/L (15-37); Alanine Aminotransfer ALT/SGPT 46 U/L (13-56); Albumin, Serum 3.3 g/dL (3.2-5.0); Alkaline Phosphatase 111 U/L (45-117); Anion Gap 7 (5-15); BUN 12 mg/dL (7-18); BUN/Creat Ratio 9.8 RATIO (10-20); Calcium,Total 8.4 mg/dL (8.5-10.1); Chloride 106 mmol/L (98-107); Creatinine, Serum 1.23 mg/dL (0.55-1.02); EST Glomerular Filtration Rate 48 mL/min (>60); Est Glom Filt Rate - Afr Amer 58 mL/min (>60); Globulin 3.1 g/dL (2.2-4.2); Glucose 89 mg/dL (74-106); Protein, Total 6.4 g/dL (6.4-8.2); Sodium Level 137 mmol/L (136-145)
[2019-10-01 11:16] LABS: Lactic Acid 0.9 mmol/L (0.4-1.9)
[2019-10-01] MEDS: Morphine 4 MG/ML Syringe IV (11:25)
[2019-10-01] MEDS: Ondansetron 4 MG/2 ML Vial IV ×2 (11:26→18:48)
--- NOTE | 2019-10-01 11:30 | NURSING ---
DR SANTIAGO FOR DR ROBBINS
[2019-10-01 11:36] LABS: Platelet Estimate SLT DEC (ADEQ); Red Cell Morphology NORM C+C NORMAL (NORM C&C)
--- NOTE | 2019-10-01 11:43 | NURSING ---
DR KEYSHA ROBBINS
--- NOTE | 2019-10-01 11:51 | NURSING ---
MED SURG [place] RESP INFECTION DUE TO COVID, RESP FAILURE WITH HYPOXIA
[2019-10-01 11:56] LABS: Mucous, Urine 0 SEEN /hpf (<or=2+); Red Blood Cells-Urine 0 SEEN /hpf (0-5)
[2019-10-01 12:17] LABS: Color, Urine Yellow (Yellow); Glucose, Dipstick Normal (Normal); Ketone-Dipstick 5 mg/dl (Negative); Leukocyte Esterase-Dipstick 25 /ul (Negative); Nitrite-Dipstick Negative (Negative); Occult Blood-Urine 50 /ul (Negative); Protein-Dipstick 100 mg/dl (Negative); Urine Clarity Sl. Cloudy (Clear); Urine Urobilinogen Normal (Normal)
[2019-10-01 12:21] LABS: Urine Bilirubin Dipstick 1 mg/dL (Negative)
[2019-10-01 13:02] LABS: Bacteria 1+ /hpf (None Seen); Squamous Epithelial Cells - UA 10-25 SEEN /hpf (5-10); White Blood Cells 0-5 SEEN /hpf (0-5)
--- NOTE | 2019-10-01 13:47 | HP.PCM_ITS ---
History of Present Illness Date of Admission: 10/01/19 Chief Complaint: shortness of breath The patient is a 58 year old F who is progressively more short of breath and weak over the past 5 days. Over the weekend, patient was not feeling well and then got tested and on Sunday and test came back positive for COVID-19 today. Patient has just progressively gotten worse with just more shortness of breath, fatigue and nausea and vomiting and diarrhea. She contacted her fine patcher office who advised her to come to the emergency room. Patient also is claiming of a very severe headache which she does not routinely have. Patient states that she has had fevers of 101 at home and here her temperature was 37 7 Celsius. Was noted to be tachycardic as well as tachypneic. Chest x-ray shows some bilateral hazy infiltrates versus atelectasis. Patient received morphine and ondansetron in the emergency room. [] Past Medical History Past Medical History (Chronic Problems): Chronic Problems (Last Updated 08/12/19 @ 11:15 by Johanna Vivar) Colitis (Chronic) Osteoarthritis (Chronic) Chronic renal failure (Chronic) Depression (Chronic) GENNARO (obstructive sleep apnea) (Chronic) Asthma (Chronic) Gastroesophageal reflux disease (Chronic) Hypertension (Chronic) Colitis with rectal bleeding (Chronic) Respiratory failure with hypoxia (Chronic) Abnormal liver CT (Chronic) hemangioma Leukopenia (Chronic) Bronchiectasis (Chronic) HLD (hyperlipidemia) (Chronic) Morbid obesity (Chronic) Anxiety (Chronic) Arthritis (Chronic) Hypertension (Chronic) Medical History: Medical History (Last Reviewed 10/01/19 @ 13:[address] Blayne Santana, DO) Endocarditis (Acute) I38 Gastritis (Acute) K29.70 Shortness of breath (Acute) R06.02 Restrictive lung disease (Acute) J98.4 Colitis (Chronic) K52.9 Osteoarthritis (Chronic) M19.90 Chronic renal failure (Chronic) N18.9 Depression (Chronic) F32.9 GENNARO (obstructive sleep apnea) (Chronic) G47.33 Pneumonia (Acute) J18.9 Bronchitis (Acute) J40 Asthma (Chronic) J45.909 Anxiety (Chronic) F41.9 History of umbilical hernia (Resolved) Z87.19 History of diarrhea (Resolved) Z87.898 Arthritis (Chronic) M19.90 Hypertension (Chronic) I10 Allergies Penicillins Allergy (Verified 05/22/19 11:07) Unknown DUST Allergy (Uncoded 05/12/19 10:13) Unknown SEASONAL Allergy (Uncoded 05/12/19 10:13) Unknown Home Medications: Ambulatory Orders Medication Instructions Recorded Albuterol Inhaler [Ventolin Hfa] 1 - 2 puff INHALATION Q4H PRN PRN 12/09/18 Pantoprazole Sodium [Protonix] 40 mg PO DAILY 12/09/18 Rosuvastatin Calcium 40 mg PO QHS 12/09/18 Acetaminophen [Tylenol Tablet] 650 mg PO Q6H PRN PRN tab 12/13/18 Temazepam [Restoril] 30 mg PO QHS PRN PRN #4 cap 01/11/19 PEP device 0 .ROUTE .MEDSUPPLY #1 ea 05/12/19 Furosemide 40 mg PO DAILY 10/01/19 Ondansetron HCl [Zofran] 4 mg PO DAILY PRN PRN 10/01/19 Paxil 20 mg PO QHS 10/01/19 Potassium Chloride [K-Dur] 60 meq PO BID 10/01/19 Surgical History: Surgical History (Last Reviewed 10/01/19 @ 13:[address] 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 Blayne Santana DO) Father Colon cancer Mother Cancer History Items: - Paternal Family History: Family History (Last Reviewed 10/01/19 @ 13:[address] Blayne Santana DO) Father Colon cancer Mother Cancer History Items: Hypertension Review of Systems Constitutional: Reports: Anorexia, Chills, Fever, Malaise, Weakness. Denies: Night Sweats Eyes: Denies: Blurred vision, Double vision HEENT: Reports: - - Patient had recent left parotitis and I was on antibiotics which she completed this week. States that the swelling on the left side of her face is much improved.. Denies: Head Aches, Sinus Congestion, Sinus Drainage Cardiovascular: Denies: Chest Pain, Edema Respiratory: Reports: Cough, Shortness of Breath, Sputum production Gastrointestinal: Reports: Diarrhea, Nausea, Vomiting. Denies: Abdominal Pain Genitourinary: Denies: Dysuria Musculoskeletal: Denies: Joint Pain, Joint Tenderness Skin: Denies: Rash, Wounds Neurological: Denies: Numbness, Tingling, Focal weakness Psychiatric: Reports: Anxiety. Denies: Depression Hematologic/ Lymphatic: Denies: Easy Bruising, Easy Bleeding, Hx of blood clot VTE Information - Inpt Only VTE Present on Admission: No VTE Pharm Prophylaxis ordered?: Yes Patient Problems: Active and Suspected Problems (Last Updated 08/12/19 @ 11:15 by Johanna Vivar) Respiratory tract infection due to COVID-19 virus (Acute) Pancytopenia (Acute) Chronic renal insufficiency, stage I (Acute) - Physical Exam Vitals/I&O's: Vital Signs Temp Pulse Resp BP Pulse Ox 37.2 C 94 16 112/71 97 10/01/19 13:33 10/01/19 13:33 10/01/19 13:33 10/01/19 13:33 10/01/19 13:33 Oxygen Flow Rate (L/min) 2 Oxygen Delivery Method Nasal Cannula Weight: 114.759 kg Body Mass Index (BMI) 38.5 General: Alert, Cooperative, No apparent distress, - - Just. Afebrile. No conversational dyspnea. No respiratory distress. HEENT: Atraumatic, Normocephalic Oral: Moist Mucosa, No Gingival or Mucosal Lesions/ Ulcerations Neck: No Nodes, Trachea Midline Lungs: Diminished, - - Faint bibasilar crackles Cardiovascular: Regular rate, Regular Rhythm, Normal S1, Normal S2, No murmurs Abdomen: Bowel Sounds Present, Soft, Non Tender, Non-Distended, No Hepato- splenomegaly Extremities: No edema, No Calf Tenderness Skin: No rashes, No breakdown Musculoskeletal: No Tenderness to Palpation of Joints or Extremities, No Muscle Wasting Neurological: Deep Tendon Reflexes 2+/4 and Symmetrical, - - no clonus Psych/Mental Status: Normal Affect, Appropriate Laboratory Results 10/01/19 10:45: WBC 1.9 L, RBC 3.38 L, Hgb 10.6 L, Hct 33.8 L, MCV 100.0 H, MCH 31.4, MCHC 31.4 L, RDW Std Deviation 57.9 H, RDW Coeff of Jaun 15.8 H, Plt Count 131 L, MPV 9.5, Immature Gran % (Auto) 0.500, Neut % (Auto) 60.7, Lymph % (Auto) 26.9, [place] % (Auto) 11.4 H, Eos % (Auto) 0.5, Baso % (Auto) 0.0, Absolute Neuts (auto) 1.2 L, Absolute Lymphs (auto) 0.52 L, Nucleated RBC % 1.0, Differential Comment , Diff Path Review October, Platelet Estimate SLT MAY, RBC Morphology NORM C+C 10/01/19 10:45: PT 12.6, INR 1.0, APTT 27.4 10/01/19 10:45: Sodium 137, Potassium 4.0, Chloride 106, Carbon Dioxide 24.0, Anion Gap 7, BUN 12, Creatinine 1.23 H, Estim Creat Clear Calc 50.90, Est GFR (MDRD) Af Amer 58 L, Est GFR (MDRD) Non-Af 48 L, BUN/Creatinine Ratio 9.8 L, Glucose 89, Calcium 8.4 L, Total Bilirubin 0.80, AST 48 H, ALT 46, Alkaline Phosphatase 111, Total Protein 6.4, Albumin 3.3, Globulin 3.1, Albumin/Globulin Ratio 1.1 10/01/19 10:45: Lactic Acid 0.9 10/01/19 11:50: Urine Color Yellow, Urine Clarity Sl. Cloudy, Urine pH 6.0, Ur Specific [place] 1.020, Urine Protein 100 H, Urine Glucose (UA) Normal, Urine Ketones 5 H, Urine Occult Blood 50 H, Urine Nitrite Negative, Urine Bilirubin 1 H, Urine Urobilinogen Normal, Ur Leukocyte Esterase 25 H, Urine RBC 0 SEEN, Urine WBC 0-5 SEEN, Ur Squamous Epith Cells 10-25 SEEN, Urine Bacteria 1+, Urine Mucus 0 SEEN Chest x-ray personally reviewed and shows some possible infiltrate in the left lower lobe as well as in the right lower lobe. Current Medications Sodium Chloride () 10 ml IV .[employer] ONE Stop: 10/01/19 13:38 Sodium Chloride () 10 - 40 ml IV UD PRN PRN Reason: SALINE FLUSH Assessment/Plan All Active Problems (Last Updated 08/12/19 @ 11:15 by Johanna Vivar) Respiratory tract infection due to COVID-19 virus (Acute) Pancytopenia (Acute) Chronic renal insufficiency, stage I (Acute) Endocarditis (Acute) Gastritis (Acute) Shortness of breath (Acute) Restrictive lung disease (Acute) Pneumonia (Acute) Bronchitis (Acute) Respiratory insufficiency (Acute) Anemia (Acute) Thrombocytopenia (Acute) Metabolic acidosis (Acute) ARF (acute renal failure) (Acute) Hyperphosphatemia (Acute) Idiopathic right ventricular dilation (Acute) Hypotension (Acute) History of tubal ligation (Resolved) History of umbilical hernia (Resolved) History of appendectomy (Resolved) History of hysterectomy (Resolved) History of cholecystectomy (Resolved) History of diarrhea (Resolved) Sepsis (Resolved) 1. Sepsis: Present on admission. Secondary to pneumonia versus and escalation of her COVID-19. I am favoring the latter. But we will treat her empirically for bacterial pneumonia. Check cultures and adjust antibiotics accordingly. Patient will be on Rocephin and azithromycin for the time being. 2. Presumed pneumococcal pneumonia. As above. Patient be on Rocephin and azithromycin. Check urinary antigens for Streptococcus Legionella, check sputum culture. 3. COVID-19, acute: Patient was tested 2 days ago and results came back positive today. Changes may be seen due to the COVID and possible developing acute lung injury associated with that. Currently, the patient is fairly stable at this time but if does decline may consider possible escalation of care including the ICU. 4. Anxiety: Reassurance provided. Patient will have some as needed lorazepam if she is feeling anxious. I told her that if she is having significant respiratory distress that we would have to avoid that as it can cause respiratory depression. She expressed understanding. Patient was also told that this will just be while she is here and not something that she would be continued on as outpatient. Again she expressed understanding to that. 5. Bronchiectasis, asthma, pulmonary hypertension: Complicate the patient's overall picture. Patient will be on prednisone as well as her bronchodilators. 6. Migraine: Patient will have as needed acetaminophen and ibuprofen. May consider triptan medication if persists. 7. VTE prophylaxis: Moderate risk patient will be on enoxaparin 8. Advanced care planning: Discussed with the patient. Patient wished to be DNR Comfort Care arrest. She is undecided about ventilator. She was informed that if she requires to be intubated that would save her life but it is unclear as to how long she would require being intubated. She wishes to think about it further. I told her that we will be leaving her DNR Comfort Care arrest with intubation if necessary. She said that would be high from her at this point time. Inpatient E&M: 57736 Init Hosp L3
[2019-10-01] MEDS: Furosemide 40 MG Tablet PO (15:30)
[2019-10-01] MEDS: predniSONE 20 MG Tablet 40 MG PO (15:30)
[2019-10-01] MEDS: 0.9% Saline Lock 10 ML Syringe IV (15:32)
[2019-10-01] MEDS: LORazepam 1 MG Tablet PO (15:33)
[2019-10-01] MEDS: Ibuprofen 600 MG Tablet PO (15:33)
--- NOTE | 2019-10-01 16:17 | NURSING ---
scanner in room not working. all medications and pt were verified with Tammy MONTES
--- NOTE | 2019-10-01 18:06 | NURSING ---
pt reports that her daughter Karely Morris [phone] is allowed to have updates on pt status. understands that Seth is primary contact
[2019-10-01] MEDS: Paroxetine 20 MG Tablet PO (22:33)
[2019-10-01] MEDS: Atorvastatin Calcium 80 MG Tablet PO (22:33)
[2019-10-01] MEDS: guaiFENesin 1,200 MG Tablet 1200 MG PO (22:33)
[2019-10-01] MEDS: Temazepam 15 MG Capsule 30 MG PO (22:33)
[2019-10-01] MEDS: Acetaminophen 325 MG Tablet 650 MG PO (22:51)
--- NOTE | 2019-10-02 01:36 | CPS ---
Pt instructed by RN.
[2019-10-02 04:24] VITALS: BP 121/80; PULSE 80; RESP 18; TEMP 36.4; O2SAT 96
[2019-10-02] MEDS: Ondansetron 4 MG/2 ML Vial IV ×3 (05:18→19:00)
[2019-10-02] MEDS: LORazepam 1 MG Tablet PO ×3 (05:18→21:49)
[2019-10-02] MEDS: Acetaminophen 325 MG Tablet 650 MG PO (05:18)
[2019-10-02 06:45] LABS: Absolute Lymphocyte Count 0.31 X10^3/uL (0.83-4.51); Absolute Neutrophil Count 0.9 X10^3/uL (2.0-7.7); Hematocrit 33.5 % (37-47); Hemoglobin 10.2 g/dL (12.0-15.0); Lymphocyte # 0.31 X10^3/ul (4.0); Lymphocyte % 22.6 % (19-41); Mean Corp Hgb Conc 30.4 g/dL (32-36); Mean Corpuscular Hgb 30.9 pg (27.0-32.0); Mean Corpuscular Volume 101.5 fL (81-99); Monocyte# 0.16 X10^3/uL; Monocyte% 11.7 % (0-10); NRBC Flagged by Analyzer 0 % (0-5); Neutrophil # 0.89 X10^3/uL (2.7-7.7); POSITIVE COUNT YES; POSITIVE DIFFERENTIAL YES; POSITIVE MORPHOLOGY YES; Platelet Count 118 K/mm3 (150-450); RBC Distribution Width CV 15.7 % (11.6-14.6); RBC Distribution Width SD 59.1 fl (35.1-43.9)
[2019-10-02 06:47] LABS: Differential Indicated SCAN CRITERIA MET
[2019-10-02 06:59] LABS: Anion Gap 7 (5-15); BUN 17 mg/dL (7-18); BUN/Creat Ratio 13.9 RATIO (10-20); Calcium,Total 8.6 mg/dL (8.5-10.1); Chloride 107 mmol/L (98-107); Creatinine, Serum 1.22 mg/dL (0.55-1.02); EST Glomerular Filtration Rate 48 mL/min (>60); Est Glom Filt Rate - Afr Amer 58 mL/min (>60); Estimated Creatinine Clearance 51.32 ml/min; Glucose 109 mg/dL (74-106); Potassium 4.9 mmol/L (3.5-5.1); Sodium Level 139 mmol/L (136-145)
[2019-10-02 07:09] LABS: White Blood Count 1.4 K/mm3 (4.4-11.0)
[2019-10-02 07:10] LABS: Differential Comment SCANNED
[2019-10-02] MEDS: oxyCODONE 5 MG Tablet PO ×3 (07:21→19:00)
[2019-10-02] MEDS: Pantoprazole Sodium 40 MG Tablet PO (09:01)
[2019-10-02] MEDS: Furosemide 40 MG Tablet PO (09:01)
[2019-10-02] MEDS: guaiFENesin 1,200 MG Tablet 1200 MG PO ×2 (09:01→21:49)
[2019-10-02] MEDS: predniSONE 20 MG Tablet 40 MG PO (09:01)
[2019-10-02] MEDS: Enoxaparin 40 MG/0.4 ML Syringe SC (09:02)
[2019-10-02] MEDS: 0.9% Saline Lock 10 ML Syringe IV ×2 (09:02→19:01)
[2019-10-02 09:11] VITALS: BP 133/89; PULSE 89; RESP 18; TEMP 36.7; O2SAT 97
[2019-10-02 09:46] LABS: Pathologist Review Reviewed
--- NOTE | 2019-10-02 11:25 | CASEMGMT ---
RN CM Assessment Note Presentation: COVID-19 Attempted to call pt in room, not able to speak with her. Call to at home. Intro role of CM and purpose of RN CM assessment. Demographics, PCP and Pharmacy verified. states pt has been independent, no care needs prior to being ill. is currently asymptomatic. Plans to have return home on dc and can assist if needed. -Has area in home where pt can isolate. states they have family/friends who can assist with groceries, meals and prescription chart picker if needed. - updated that detailed dc instructions would be given to pt on dc re: f/u, medications, isolation. PCP: Dr. Karl Moran Specialists: Dr. Padron, Pulmonology. [facility]erred [facility]acy: [facility] [place] Insurance: MMO Prescription Benefit: yes LNOK : , Seth Felder Living Arrangements: Lives independently with her . No care needs prior to admission, pt was independent. If care needs arise, is able to assist his at home. Transportation: pt drives. Per , family/friends are able to assist with groceries, prescriptions on dc if they are home bound due to COVID-19 quarantine DME: walker, cane Oxygen: 2L [place] through [employer]. Concentrator, portability and Bipap at home. HHC: none Patient DC goals: Home DC PLAN: Home. RN CM advised to contact cm for any concerns/needs that may arise. Curt WALTON RN ACM
--- NOTE | 2019-10-02 12:26 | PN_ITS ---
Patient Problems: Active and Suspected Problems (Last Reviewed 10/01/19 @ 13:[address] Blayne Santana, DO) Respiratory tract infection due to COVID-19 virus (Acute) Pancytopenia (Acute) Chronic renal insufficiency, stage I (Acute) Reason for Visit: pneumonia Subjective: Still short of breath. Still with abdominal pain. Was on Viberzi as outpt, but was stopped by her jd edwards (Dr. Watson) given her post- cholecystectomy status. She is requesting the oxycodone be increased from Q6 to Q4. She said the oxycodone helped her headache, but now her headache is back. After I left the room, she told the nurse I don't know her and she demanded her construction checker, Dr. Padron, see her. Vitals/I&O's: Vital Signs Temp Pulse Resp BP Pulse Ox 36.7 C 89 18 133/89 H 97 10/02/19 09:11 10/02/19 09:11 10/02/19 09:11 10/02/19 09:11 10/02/19 09:11 Oxygen Flow Rate (L/min) 2 Oxygen Delivery Method Nasal Cannula Weight: 114.759 kg Body Mass Index (BMI) 38.5 Intake and Output for Last 24 Hours 09/30/19 10/01/19 10/02/19 23:59 23:59 23:59 Intake Total 1405 / 1405 655 / 655 Output Total 550 / 550 Balance 1405 / 1405 105 / 105 General: Alert, No apparent distress HEENT: Atraumatic, Normocephalic Oral: Moist Mucosa, No Gingival or Mucosal Lesions/ Ulcerations Neck: No Nodes, Trachea Midline Lungs: Clear to auscultation Cardiovascular: Regular rate, Regular Rhythm, Normal S1, Normal S2, No murmurs Abdomen: Bowel Sounds Present, Soft, Non Tender, Non-Distended, No Hepato- splenomegaly, Obese Extremities: No edema, No Calf Tenderness Skin: No rashes, No breakdown Neurological: Cranial nerves II-XII grossly intact, Deep Tendon Reflexes 2+/4 and Symmetrical Psych/Mental Status: Agitated, Anxious Microbiology Past 72 Hours 10/02/19 05:15 Sputum, Expectorated/Coughed Gram Stain - Final 10/01/19 11:50 Urine Catheter - Catheter Legionella Antigen - Final 10/01/19 11:50 Urine Catheter - Catheter Streptococcus pneumoniae Antigen (M - Final Laboratory Results 10/01/19 10:45: Diff Path Review Reviewed 10/01/19 11:50: Urine RBC 0 SEEN, Urine WBC 0-5 SEEN, Ur Squamous Epith Cells 10-25 SEEN, Urine Bacteria 1+, Urine Mucus 0 SEEN 10/02/19 06:00: WBC 1.4 L*, RBC 3.30 L, Hgb 10.2 L, Hct 33.5 L, MCV 101.5 H, MCH 30.9, MCHC 30.4 L, RDW Std Deviation 59.1 H, RDW Coeff of Jaun 15.7 H, Plt Count 118 L, MPV 10.0, Immature Gran % (Auto) 0.700, Neut % (Auto) 65.0, Lymph % (Auto) 22.6, [place] % (Auto) 11.7 H, Eos % (Auto) 0.0, Baso % (Auto) 0.0, Absolute Neuts (auto) 0.9 L, Absolute Lymphs (auto) 0.31 L, Nucleated RBC % 0, Differential Comment SCANNED, Diff Path Review May foll 10/02/19 06:00: Sodium 139, Potassium 4.9, Chloride 107, Carbon Dioxide 25.0, Anion Gap 7, BUN 17, Creatinine 1.22 H, Estim Creat Clear Calc 51.32, Est GFR (MDRD) Af Amer 58 L, Est GFR (MDRD) Non-Af 48 L, BUN/Creatinine Ratio 13.9, Glucose 109 H, Calcium 8.6 Current Medications Acetaminophen (Tylenol) 650 mg PO Q6H PRN PRN PRN Reason: Pain Score 1-10/Temp > 100.7 F Last Admin: 10/02/19 05:18 Dose: 650 mg Documented by: Albuterol Sulfate (Ventolin Hfa (Sp)) 2 puff INHALATION Q4H PRN PRN PRN Reason: SHORTNESS OF BREATH Atorvastatin Calcium (Lipitor) 80 mg PO QHS [facility] Last Admin: 10/01/19 22:33 Dose: 80 mg Documented by: Enoxaparin Sodium (Lovenox) 40 mg SC DAILY [facility] Last Admin: 10/02/19 09:02 Dose: 40 mg Documented by: Furosemide (Lasix) 40 mg PO DAILY [facility] Last Admin: 10/02/19 09:01 Dose: 40 mg Documented by: Guaifenesin (Mucinex) 1,200 mg PO BID [facility] Last Admin: 10/02/19 09:01 Dose: 1,200 mg Documented by: Ceftriaxone Sodium 2 gm/ (Sodium Chloride) 50 mls @ 100 mls/hr IV Q24 [facility] Stop: 10/08/19 13:51 Last Infusion: 10/02/19 10:03 Dose: Infused Documented by: Azithromycin 500 mg/ Dextrose 255 mls @ 250 mls/hr IV Q24 [facility] Stop: 10/06/19 15:01 Last Infusion: 10/02/19 11:45 Dose: Infused Documented by: Ibuprofen (Motrin) 600 mg PO Q6H PRN PRN PRN Reason: pain 1-10 Last Admin: 10/01/19 15:33 Dose: 600 mg Documented by: Lorazepam (Ativan) 1 mg PO Q8H PRN PRN PRN Reason: ANXIETY Last Admin: 10/02/19 05:18 Dose: 1 mg Documented by: Miscellaneous Information (Pocket Chamber) 1 each INHALATION Q4H PRN PRN PRN Reason: albuterol inhaler Ondansetron HCl (Zofran) 4 mg IV Q6H PRN PRN PRN Reason: NAUSEA/VOMITING Last Admin: 10/02/19 11:39 Dose: 4 mg Documented by: Oxycodone HCl (Oxyir) 5 mg PO Q4H PRN PRN PRN Reason: Pain Score 6-10/10 Last Admin: 10/02/19 12:25 Dose: 5 mg Documented by: Pantoprazole Sodium (Protonix) 40 mg PO DAILY [facility] Last Admin: 10/02/19 09:01 Dose: 40 mg Documented by: Paroxetine HCl (Paxil) 20 mg PO QHS [facility] Last Admin: 10/01/19 22:33 Dose: 20 mg Documented by: [facility] Last Admin: 10/02/19 09:01 Dose: 60 meq Documented by: Prednisone () 40 mg PO DAILY@0800 [facility] Last Admin: 10/02/19 09:01 Dose: 40 mg Documented by: Sodium Chloride () 10 - 40 ml IV UD PRN PRN Reason: SALINE FLUSH Last Admin: 10/02/19 09:02 Dose: 10 ml Documented by: Temazepam (Restoril) 30 mg PO QHS PRN PRN PRN Reason: INSOMNIA Last Admin: 10/01/19 22:33 Dose: 30 mg Documented by: STROKE Vital Signs/Narrative: Vital Signs Temp Pulse Resp BP Pulse Ox 10/02/19 09:11 36.7 C 89 18 133/89 H 97 Medical Necessity - Tobacco Use Smoking Status: Former smoker Assessment/Plan All Active Problems (Last Reviewed 10/01/19 @ 13:[address] Blayne Santana, DO) Respiratory tract infection due to COVID-19 virus (Acute) Pancytopenia (Acute) Chronic renal insufficiency, stage I (Acute) Endocarditis (Acute) Gastritis (Acute) Shortness of breath (Acute) Restrictive lung disease (Acute) Pneumonia (Acute) Bronchitis (Acute) Respiratory insufficiency (Acute) Anemia (Acute) Thrombocytopenia (Acute) Metabolic acidosis (Acute) ARF (acute renal failure) (Acute) Hyperphosphatemia (Acute) Idiopathic right ventricular dilation (Acute) Hypotension (Acute) History of tubal ligation (Resolved) History of umbilical hernia (Resolved) History of appendectomy (Resolved) History of hysterectomy (Resolved) History of cholecystectomy (Resolved) History of diarrhea (Resolved) Sepsis (Resolved) 1. Sepsis: Present on admission. Secondary to pneumonia versus and escalation of her COVID-19. I am favoring the latter. But we will treat her empirically for bacterial pneumonia. Check cultures and adjust antibiotics accordingly. Patient will be on Rocephin and azithromycin for the time being. 2. Presumed pneumococcal pneumonia. As above. Patient be on Rocephin and azithromycin. Check urinary antigens for Streptococcus Legionella, check sputum culture. 3. COVID-19, acute: Patient was tested 2 days ago and results came back p ositive today. Changes may be seen due to the COVID and possible developing acute lung injury associated with that. Currently, the patient is fairly stable at this time but if does decline may consider possible escalation of care including the ICU. 4. Anxiety: Complicating care. On 09/30: I told her that if she is having significant respiratory distress that we would have to avoid that as it can cause respiratory depression. She expressed understanding. Patient was also told that this will just be while she is here and not something that she would be continued on as outpatient. Again she expressed understanding to that. 5. Bronchiectasis, asthma, pulmonary hypertension: Complicate the patient's overall picture. Patient will be on prednisone as well as her bronchodilators. Pt requesting pulmonary consultation. Will consult Dr. Padron. 6. Migraine: Patient will have as needed acetaminophen and ibuprofen. Advised patient and nursing against narcotics for migraines/headaches. Try triptan. 7. VTE prophylaxis: Moderate risk patient will be on enoxaparin 8. Advanced care planning: Discussed with the patient. Patient wished to be DNR Comfort Care arrest. She is undecided about ventilator. She was informed that if she requires to be intubated that would save her life but it is unclear as to how long she would require being intubated. She wishes to think about it further. I told her that we will be leaving her DNR Comfort Care arrest with intubation if necessary. She said that would be high from her at this point time. 9. Ulcerative colitis: states that she has chronic abdominal pain. No active narcotics on OARRS. She states that her abdomen is chronically painful. I am concerned she may be embellishing her symptoms given inconsistent physical exam with symptoms. Try bj. Inpatient E&M: 34410 Subs Hosp L2
[2019-10-02 13:21] VITALS: BP 129/82; PULSE 92; RESP 18; TEMP 37; O2SAT 98
[2019-10-02] MEDS: Dicyclomine 10 MG Capsule PO (15:19)
[2019-10-02] MEDS: SUMAtriptan 6 MG/0.5 ML Vial SC (15:19)
--- NOTE | 2019-10-02 15:37 | CON.PCM_ITS ---
Problem List (1) Respiratory tract infection due to COVID-19 virus Status: Acute (2) Pancytopenia Status: Acute (3) Chronic renal insufficiency, stage I Status: Acute (4) Restrictive lung disease Status: Acute (5) Chronic renal failure Status: Chronic (6) Depression Status: Chronic (7) GENNARO (obstructive sleep apnea) Status: Chronic (8) Asthma Status: Chronic Qualifiers: Asthma severity: mild Asthma persistence: intermittent Asthma complication type: uncomplicated Qualified Code(s): J45.20 - Mild intermittent asthma, uncomplicated (9) Gastroesophageal reflux disease Status: Chronic (10) Respiratory failure with hypoxia Status: Chronic Qualifiers: Chronicity: acute Qualified Code(s): J96.01 - Acute respiratory failure with hypoxia (11) Idiopathic right ventricular dilation Status: Acute (12) Bronchiectasis Status: Chronic Qualifiers: Bronchiectasis type: uncomplicated Qualified Code(s): J47.9 - Bronchiectasis, uncomplicated (13) Morbid obesity Status: Chronic (14) Anxiety Status: Chronic (15) History of tubal ligation Status: Resolved (16) History of umbilical hernia Status: Resolved (17) History of appendectomy Status: Resolved (18) History of hysterectomy Status: Resolved (19) History of cholecystectomy Status: Resolved Reason for Consult Date of Consultation: 10/02/19 Reason for Consultation: COVID-19 History of Present Illness: The patient is a 58 year old F, with past medical history listed below and well- known to me from the outpatient office, who presented to [facility] on 10/01/2019 secondary to progressive shortness of breath, cough and posttussive emesis. Patient denied any obvious aspiration, but had a bilateral global headache for several days. Patient also had some neck pain without stiffness. Patient has had some rhinorrhea and postnasal drainage. In the ER, patient was tachycardic with a right bundle branch block. This was unchanged compared to previous. Patient was noted to be hypoxic and febrile. Patient was admitted to the [facility] floor for cohort care. Over the course of the hospitalization, patient has done okay. Patient's maximum temperature was 37.7 ?C, but patient has required minimal nasal cannula oxygen to maintain saturations. Patient was very concerned that COVID will kill me that she requested a pulmonary consult. On my evaluation, patient was extremely anxious and tearful. Patient stated that she did feel little bit better today compared to yesterday, but overall feels like her symptoms have not significantly improved. Patient states that she has responded to steroids in the past, but she is still having a headache. Patient has received OxyIR and anxiolytics. Patient denies any current chest pain, abdominal pain, but has had some nausea. Patient continues to have a dry cough. Review of systems otherwise negative from a constitutional, HEENT, respiratory, cardiovascular, GI, genitourinary, musculoskeletal, skin, neurologic, psychiatric and hematologic system unless stated above. Past Medical History Past Medical History (Chronic Problems): Chronic Problems (Last Reviewed 10/01/19 @ 13:[address] Blayne Santana DO) Colitis (Chronic) Osteoarthritis (Chronic) Chronic renal failure (Chronic) Depression (Chronic) GENNARO (obstructive sleep apnea) (Chronic) Asthma (Chronic) Gastroesophageal reflux disease (Chronic) Hypertension (Chronic) Colitis with rectal bleeding (Chronic) Respiratory failure with hypoxia (Chronic) Abnormal liver CT (Chronic) hemangioma Leukopenia (Chronic) Bronchiectasis (Chronic) HLD (hyperlipidemia) (Chronic) Morbid obesity (Chronic) Anxiety (Chronic) Arthritis (Chronic) Hypertension (Chronic) Medical History: Medical History (Last Reviewed 10/01/19 @ 13:[address] Blayne Santana DO) Endocarditis (Acute) I38 Gastritis (Acute) K29.70 Shortness of breath (Acute) R06.02 Restrictive lung disease (Acute) J98.4 Colitis (Chronic) K52.9 Osteoarthritis (Chronic) M19.90 Chronic renal failure (Chronic) N18.9 Depression (Chronic) F32.9 GENNARO (obstructive sleep apnea) (Chronic) G47.33 Pneumonia (Acute) J18.9 Bronchitis (Acute) J40 Asthma (Chronic) J45.909 Anxiety (Chronic) F41.9 History of umbilical hernia (Resolved) Z87.19 History of diarrhea (Resolved) Z87.898 Arthritis (Chronic) M19.90 Hypertension (Chronic) I10 Allergies Penicillins Allergy (Verified 05/22/19 11:07) Unknown DUST Allergy (Uncoded 05/12/19 10:13) Unknown SEASONAL Allergy (Uncoded 05/12/19 10:13) Unknown Home Medications: Ambulatory Orders Medication Instructions Recorded Albuterol Inhaler [Ventolin Hfa] 1 - 2 puff INHALATION Q4H PRN PRN 12/09/18 Pantoprazole Sodium [Protonix] 40 mg PO DAILY 12/09/18 Rosuvastatin Calcium 40 mg PO QHS 12/09/18 Acetaminophen [Tylenol Tablet] 650 mg PO Q6H PRN PRN tab 12/13/18 Temazepam [Restoril] 30 mg PO QHS PRN PRN #4 cap 01/11/19 PEP device 0 .ROUTE .MEDSUPPLY #1 ea 05/12/19 Furosemide 40 mg PO DAILY 10/01/19 Ondansetron HCl [Zofran] 4 mg PO DAILY PRN PRN 10/01/19 Paxil 20 mg PO QHS 10/01/19 Potassium Chloride [K-Dur] 60 meq PO BID 10/01/19 Surgical History: Surgical History (Last Reviewed 10/01/19 @ 13:[address] 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 Blayne Santana DO) Father Colon cancer Mother Cancer History Items: - Paternal Family History: Family History (Last Reviewed 10/01/19 @ 13:[address] Blayne Santana DO) Father Colon cancer Mother Cancer History Items: Hypertension Review of Systems Comment: See HPI Patient Problems: Active and Suspected Problems (Last Reviewed 10/01/19 @ 13:[address] Blayne Santana DO) Respiratory tract infection due to COVID-19 virus (Acute) Pancytopenia (Acute) Chronic renal insufficiency, stage I (Acute) Objective: Chest x-ray was personally reviewed and did not show any significant infiltrates. - Physical Exam Vitals/I&O's: Vital Signs Temp Pulse Resp BP Pulse Ox 37.0 C 92 18 129/82 H 98 10/02/19 13:21 10/02/19 13:21 10/02/19 13:21 10/02/19 13:21 10/02/19 13:21 Oxygen Flow Rate (L/min) 2 Oxygen Delivery Method Room Air Weight: 114.759 kg Body Mass Index (BMI) 38.5 Intake and Output for Last 24 Hours 09/30/19 10/01/19 10/02/19 23:59 23:59 23:59 Intake Total 1405 / 1405 655 / 655 Output Total 850 / 850 Balance 1405 / 1405 -195 / -195 General: Alert, Oriented x3, Cooperative, - - Obese. Conversational dyspnea not ed and extremely anxious and tearful HEENT: Atraumatic, PERRLA, EOMI, Normocephalic, - - No scleral icterus or injection Oral: Moist Mucosa, No Gingival or Mucosal Lesions/ Ulcerations Neck: Supple, No JVD, No Nodes, Trachea Midline Lungs: No rhonchi, No wheeze, No rales, Diminished, - - Symmetric expansion. No dullness to percussion. Cardiovascular: Normal S1, Normal S2, No murmurs, No rub noted, No Gallop, Tachycardic Abdomen: Bowel Sounds Present, Soft, Non Tender, Non-Distended, Obese Extremities: No clubbing, No cyanosis, Edema - Lower extremity Skin: No rashes, No breakdown Musculoskeletal: No Tenderness to Palpation of Joints or Extremities Lymphatic: No Cervical, Supraclavicular, or Inguinal Adenopathy Neurological: Cranial nerves II-XII grossly intact, Neuro grossly intact, Motor Exam 5/5 strength throughout Psych/Mental Status: Alert and oriented to time, place, person, mood and affect Microbiology Past 72 Hours 10/01/19 11:50 Urine, Clean Catch Urine Culture - Preliminary Culture exhibits no growth. 10/02/19 05:15 Sputum, Expectorated/Coughed Gram Stain - Final 10/01/19 11:50 Urine Catheter - Catheter Legionella Antigen - Final 10/01/19 11:50 Urine Catheter - Catheter Streptococcus pneumoniae Antigen (M - Final Laboratory Results 10/01/19 10:45: Diff Path Review Reviewed 10/02/19 06:00: WBC 1.4 L*, RBC 3.30 L, Hgb 10.2 L, Hct 33.5 L, MCV 101.5 H, MCH 30.9, MCHC 30.4 L, RDW Std Deviation 59.1 H, RDW Coeff of Jaun 15.7 H, Plt Count 118 L, MPV 10.0, Immature Gran % (Auto) 0.700, Neut % (Auto) 65.0, Lymph % (Auto) 22.6, [place] % (Auto) 11.7 H, Eos % (Auto) 0.0, Baso % (Auto) 0.0, Absolute Neuts (auto) 0.9 L, Absolute Lymphs (auto) 0.31 L, Nucleated RBC % 0, Differenti al Comment SCANNED, Diff Path Review [facility] 10/02/19 06:00: Sodium 139, Potassium 4.9, Chloride 107, Carbon Dioxide 25.0, Anion Gap 7, BUN 17, Creatinine 1.22 H, Estim Creat Clear Calc 51.32, Est GFR (MDRD) Af Amer 58 L, Est GFR (MDRD) Non-Af 48 L, BUN/Creatinine Ratio 13.9, Glucose 109 H, Calcium 8.6 Current Medications Acetaminophen (Tylenol) 650 mg PO Q6H PRN PRN PRN Reason: Pain Score 1-10/Temp > 100.7 F Last Admin: 10/02/19 05:18 Dose: 650 mg Documented by: Albuterol Sulfate (Ventolin Hfa (Sp)) 2 puff INHALATION Q4H PRN PRN PRN Reason: SHORTNESS OF BREATH Atorvastatin Calcium (Lipitor) 80 mg PO QHS [facility] Last Admin: 10/01/19 22:33 Dose: 80 mg Documented by: Dicyclomine HCl (Bentyl) 10 mg PO TIDAC [facility] Last Admin: 10/02/19 15:19 Dose: 10 mg Documented by: Enoxaparin Sodium (Lovenox) 40 mg SC DAILY [facility] Last Admin: 10/02/19 09:02 Dose: 40 mg Documented by: Furosemide (Lasix) 40 mg PO DAILY [facility] Last Admin: 10/02/19 09:01 Dose: 40 mg Documented by: Guaifenesin (Mucinex) 1,200 mg PO BID [facility] Last Admin: 10/02/19 09:01 Dose: 1,200 mg Documented by: Ceftriaxone Sodium 2 gm/ (Sodium Chloride) 50 mls @ 100 mls/hr IV Q24 [facility] Stop: 10/08/19 13:51 Last Infusion: 04/30/20 10:03 Dose: Infused Documented by: Azithromycin 500 mg/ Dextrose 255 mls @ 250 mls/hr IV Q24 [facility] Stop: 10/06/19 15:01 Last Infusion: 10/02/19 11:45 Dose: Infused Documented by: Ibuprofen (Motrin) 600 mg PO Q6H PRN PRN PRN Reason: pain 1-10 Last Admin: 10/01/19 15:33 Dose: 600 mg Documented by: Lorazepam (Ativan) 1 mg PO Q8H PRN PRN PRN Reason: ANXIETY Last Admin: 10/02/19 13:15 Dose: 1 mg Documented by: Miscellaneous Information (Pocket Chamber) 1 each INHALATION Q4H PRN PRN PRN Reason: albuterol inhaler Ondansetron HCl (Zofran) 4 mg IV Q6H PRN PRN PRN Reason: NAUSEA/VOMITING Last Admin: 10/02/19 11:39 Dose: 4 mg Documented by: Oxycodone HCl (Oxyir) 5 mg PO Q4H PRN PRN PRN Reason: Pain Score 6-1010 Last Admin: 10/02/19 12:25 Dose: 5 mg Documented by: Pantoprazole Sodium (Protonix) 40 mg PO DAILY [facility] Last Admin: 10/02/19 09:01 Dose: 40 mg Documented by: Paroxetine HCl (Paxil) 20 mg PO QHS [facility] Last Admin: 10/01/19 22:33 Dose: 20 mg Documented by: Potassium Chloride (K-Dur) 60 meq PO BIDCM [facility] Last Admin: 10/02/19 15:20 Dose: 60 meq Documented by: Prednisone () 40 mg PO DAILY@0800 [facility] Last Admin: 10/02/19 09:01 Dose: 40 mg Documented by: Sodium Chloride () 10 - 40 ml IV UD PRN PRN Reason: SALINE FLUSH Last Admin: 10/02/19 09:02 Dose: 10 ml Documented by: Temazepam (Restoril) 30 mg PO QHS PRN PRN PRN Reason: INSOMNIA Last Admin: 10/01/19 22:33 Dose: 30 mg Documented by: Assessment/Plan All Active Problems (Last Reviewed 10/01/19 @ 13:[address] Blayne Santana, DO) Respiratory tract infection due to COVID-19 virus (Acute) Pancytopenia (Acute) Chronic renal insufficiency, stage I (Acute) Endocarditis (Acute) Gastritis (Acute) Shortness of breath (Acute) Restrictive lung disease (Acute) Pneumonia (Acute) Bronchitis (Acute) Respiratory insufficiency (Acute) Anemia (Acute) Thrombocytopenia (Acute) Metabolic acidosis (Acute) ARF (acute renal failure) (Acute) Hyperphosphatemia (Acute) Idiopathic right ventricular dilation (Acute) Hypotension (Acute) History of tubal ligation (Resolved) History of umbilical hernia (Resolved) History of appendectomy (Resolved) History of hysterectomy (Resolved) History of cholecystectomy (Resolved) History of diarrhea (Resolved) Sepsis (Resolved) RECOMMENDATIONS: 1. Agree with steroid burst. Anticipate 12-day taper 2. Oxygen to keep saturations greater than 90% 3. Wean oxygen as tolerated, walking oximetry prior to discharge 4. Continue baseline medications IMPRESSIONS: 1. Acute exacerbation of bronchiectasis/restrictive lung disease secondary to COVID-19 Patient appears to be tolerating well at this time. Patient has not had significant fever, but is receiving Tylenol and Motrin intermittently. No signs or symptoms of renal worsening noted. Blood cultures are currently pending. Agree with steroid burst, but anticipate a 12 to 14-day taper. Will need to watch oxygen saturations closely. Patient does have supplemental oxygen at home if necessary. We will continue to monitor, but if patient is able to be without fever and significant decompensation clinically, possibly able to discharge home in the next 24 to 48 hours with close outpatient follow-up. Patient may require anxiolytic medications on discharge to keep with appropriate respiratory mechanics. Cannot exclude a concomitant bacterial infection. Agree with empiric antibiotics for now. Would not recommend Plaquenil, but if patient were to decompensate, convalescent serum would be a consideration. 2. Anxiety/migraine/obesity/ulcerative colitis Complicates care, management, recovery and prognosis. Patient is responding to ibuprofen and acetaminophen, but this may be addressing fever and giving a false sense of lack of progression. Okay to continue with baseline medications from my perspective. 3. CODE STATUS Discussed with patient at length about CODE STATUS. After review of all options, patient is agreeable to a DNR Comfort Care arrest with intubation. She does understand that this could be reversed will full code by her family, but she trust that they will make a good judgment. Patient did state that she felt that her felt guilty about bringing this home from the [place]. Inpatient E&M: 92395 Init Hosp L2
[2019-10-02 21:36] VITALS: BP 109/62; PULSE 85; RESP 17; TEMP 36.7; O2SAT 96
[2019-10-02] MEDS: Temazepam 15 MG Capsule 30 MG PO (21:49)
[2019-10-02] MEDS: Atorvastatin Calcium 80 MG Tablet PO (21:49)
[2019-10-02] MEDS: Paroxetine 20 MG Tablet PO (21:49)
[2019-10-03 03:00] VITALS: BP 115/81; PULSE 86; RESP 17; TEMP 36.9; O2SAT 93
[2019-10-03] MEDS: oxyCODONE 5 MG Tablet PO ×3 (03:07→23:00)
[2019-10-03] MEDS: LORazepam 1 MG Tablet PO ×3 (06:19→23:21)
[2019-10-03] MEDS: Dicyclomine 10 MG Capsule PO ×3 (06:19→15:29)
[2019-10-03 06:55] LABS: Absolute Lymphocyte Count 0.53 X10^3/uL (0.83-4.51); Absolute Neutrophil Count 1.9 X10^3/uL (2.0-7.7); Basophil# 0.01 X10^3/uL; Basophil% 0.4 % (0-1); Hematocrit 34.9 % (37-47); Hemoglobin 10.3 g/dL (12.0-15.0); Lymphocyte # 0.53 X10^3/ul (4.0); Lymphocyte % 19.9 % (19-41); Mean Corp Hgb Conc 29.5 g/dL (32-36); Mean Corpuscular Hgb 30.7 pg (27.0-32.0); Mean Corpuscular Volume 104.2 fL (81-99); Mean Platelet Vol. 9.9 fl (6.2-12.0); Monocyte# 0.19 X10^3/uL; Monocyte% 7.1 % (0-10); NRBC Flagged by Analyzer 0.7 % (0-5); Neutrophil # 1.92 X10^3/uL (2.7-7.7); Neutrophil % 71.9 % (47-70); POSITIVE DIFFERENTIAL YES; Platelet Count 142 K/mm3 (150-450); RBC Distribution Width CV 15.5 % (11.6-14.6); Red Blood Count 3.35 M/mm3 (4.2-5.4); White Blood Count 2.7 K/mm3 (4.4-11.0)
[2019-10-03 07:06] LABS: Anion Gap 7 (5-15); BUN 18 mg/dL (7-18); BUN/Creat Ratio 14.2 RATIO (10-20); Calcium,Total 8.4 mg/dL (8.5-10.1); Chloride 110 mmol/L (98-107); Creatinine, Serum 1.27 mg/dL (0.55-1.02); EST Glomerular Filtration Rate 46 mL/min (>60); Est Glom Filt Rate - Afr Amer 56 mL/min (>60); Glucose 104 mg/dL (74-106); Potassium 3.8 mmol/L (3.5-5.1); Sodium Level 141 mmol/L (136-145)
[2019-10-03 07:19] LABS: Differential Indicated SCAN CRITERIA MET
[2019-10-03 07:36] VITALS: O2SAT 95
[2019-10-03 08:00] LABS: Differential Comment SCANNED
--- NOTE | 2019-10-03 08:12 | PCM.PN.PUL ---
Patient Problems: Active and Suspected Problems (Last Reviewed 10/01/19 @ 13:[address] Blayne Santana, DO) Respiratory tract infection due to COVID-19 virus (Acute) Pancytopenia (Acute) Chronic renal insufficiency, stage I (Acute) Subjective: Patient did okay from a hemodynamic standpoint overnight. Patient does report multiple episodes of dyspnea overnight. No active intervention was required except for anxiolytic. Patient is unclear on what initiates the event, but states it is very difficult to break. Patient is requesting to stay through the weekend. - Physical Exam Vitals/I&O's: Vital Signs Temp Pulse Resp BP Pulse Ox 36.9 C 86 17 115/81 H 95 10/03/19 03:00 10/03/19 03:00 10/03/19 03:00 10/03/19 03:00 10/03/19 07:36 Oxygen Flow Rate (L/min) 2 Oxygen Delivery Method Nasal Cannula Weight: 114.759 kg Body Mass Index (BMI) 38.5 Intake and Output for Last 24 Hours 10/01/19 10/02/19 10/03/19 23:59 23:59 23:59 Intake Total 1405 / 1405 655 / 655 900 / 900 Output Total 850 / 850 Balance 1405 / 1405 -195 / -195 900 / 900 General: Alert, Oriented x3, Cooperative, - - Mild conversational dyspnea. Morbidly obese. HEENT: Atraumatic, PERRLA, EOMI, Normocephalic, - - No scleral icterus or injection noted Oral: Moist Mucosa, No Gingival or Mucosal Lesions/ Ulcerations Neck: Supple, No JVD, No Nodes, Trachea Midline Lungs: No rhonchi, No rales, Diminished, Wheezes Cardiovascular: Regular rate, Regular Rhythm, Normal S1, Normal S2, No murmurs, No rub noted, No Gallop Abdomen: Bowel Sounds Present, Soft, Non Tender, Non-Distended, Obese Extremities: No clubbing, No cyanosis, Edema - Trace lower extremity Skin: - - No change from previous Musculoskeletal: No Tenderness to Palpation of Joints or Extremities Lymphatic: No Cervical, Supraclavicular, or Inguinal Adenopathy Neurological: Cranial nerves II-XII grossly intact, Neuro grossly intact, Motor Exam 5/5 strength throughout Psych/Mental Status: Anxious, Restless Microbiology Past 72 Hours 10/01/19 11:50 Urine, Clean Catch Urine Culture - Preliminary Culture exhibits no growth. 10/02/19 05:15 Sputum, Expectorated/Coughed Gram Stain - Final 10/01/19 11:50 Urine Catheter - Catheter Legionella Antigen - Final 10/01/19 11:50 Urine Catheter - Catheter Streptococcus pneumoniae Antigen (M - Final Laboratory Results 10/01/19 10:45: Diff Path Review Reviewed 10/03/19 06:06: WBC 2.7 L, RBC 3.35 L, Hgb 10.3 L, Hct 34.9 L, MCV 104.2 H, MCH 30.7, MCHC 29.5 L, RDW Std Deviation 59.0 H, RDW Coeff of Jaun 15.5 H, Plt Count 142 L, MPV 9.9, Immature Gran % (Auto) 0.700, Neut % (Auto) 71.9 H, Lymph % (Auto) 19.9, [place] % (Auto) 7.1, Eos % (Auto) 0.0, Baso % (Auto) 0.4, Absolute Neuts (auto) 1.9 L, Absolute Lymphs (auto) 0.53 L, Nucleated RBC % 0.7, Differential Comment SCANNED 10/03/19 06:06: Sodium 141, Potassium 3.8, Chloride 110 H, Carbon Dioxide 24.0, Anion Gap 7, BUN 18, Creatinine 1.27 H, Estim Creat Clear Calc 49.30, Est GFR (MDRD) Af Amer 56 L, Est GFR (MDRD) Non-Af 46 L, BUN/Creatinine Ratio 14.2, Glucose 104, Calcium 8.4 L Current Medications Acetaminophen (Tylenol) 650 mg PO Q6H PRN PRN PRN Reason: Pain Score 1-10/Temp > 100.7 F Last Admin: 10/02/19 05:18 Dose: 650 mg Documented by: Albuterol Sulfate (Ventolin Hfa (Sp)) 2 puff INHALATION Q4H PRN PRN PRN Reason: SHORTNESS OF BREATH Atorvastatin Calcium (Lipitor) 80 mg PO QHS [facility] Last Admin: 10/02/19 21:49 Dose: 80 mg Documented by: Dicyclomine HCl (Bentyl) 10 mg PO TIDAC [facility] Last Admin: 10/03/19 06:19 Dose: 10 mg Documented by: Enoxaparin Sodium (Lovenox) 40 mg SC DAILY [facility] Last Admin: 10/02/19 09:02 Dose: 40 mg Documented by: Furosemide (Lasix) 40 mg PO DAILY [facility] Last Admin: 10/02/19 09:01 Dose: 40 mg Documented by: Guaifenesin (Mucinex) 1,200 mg PO BID [facility] Last Admin: 10/02/19 21:49 Dose: 1,200 mg Documented by: Ceftriaxone Sodium 2 gm/ (Sodium Chloride) 50 mls @ 100 mls/hr IV Q24 [facility] Stop: 10/08/19 13:51 Last Infusion: 10/02/19 10:03 Dose: Infused Documented by: Azithromycin 500 mg/ Dextrose 255 mls @ 250 mls/hr IV Q24 [facility] Stop: 10/06/19 15:01 Last Infusion: 10/02/19 11:45 Dose: Infused Documented by: Ibuprofen (Motrin) 600 mg PO Q6H PRN PRN PRN Reason: pain 1-10 Last Admin: 10/01/19 15:33 Dose: 600 mg Documented by: Lorazepam (Ativan) 1 mg PO Q8H PRN PRN PRN Reason: ANXIETY Last Admin: 10/03/19 06:19 Dose: 1 mg Documented by: Miscellaneous Information (Pocket Chamber) 1 each INHALATION Q4H PRN PRN PRN Reason: albuterol inhaler Ondansetron HCl (Zofran) 4 mg IV Q6H PRN PRN PRN Reason: NAUSEA/VOMITING Last Admin: 10/02/19 19:00 Dose: 4 mg Documented by: Oxycodone HCl (Oxyir) 5 mg PO Q4H PRN PRN PRN Reason: Pain Score 6-10/10 Last Admin: 10/03/19 03:07 Dose: 5 mg Documented by: Pantoprazole Sodium (Protonix) 40 mg PO DAILY [facility] Last Admin: 10/02/19 09:01 Dose: 40 mg Documented by: Paroxetine HCl (Paxil) 20 mg PO QHS [facility] Last Admin: 10/02/19 21:49 Dose: 20 mg Documented by: Potassium Chloride (K-Dur) 60 meq PO BIDCM [facility] Last Admin: 10/02/19 15:20 Dose: 60 meq Documented by: Prednisone () 40 mg PO DAILY@0800 [facility] Last Admin: 10/02/19 09:01 Dose: 40 mg Documented by: Sodium Chloride () 10 - 40 ml IV UD PRN PRN Reason: SALINE FLUSH Last Admin: 10/02/19 19:01 Dose: 10 ml Documented by: Temazepam (Restoril) 30 mg PO QHS PRN PRN PRN Reason: INSOMNIA Last Admin: 10/02/19 21:49 Dose: 30 mg Documented by: Medical Necessity - Tobacco Use Smoking Status: Former smoker Assessment/Plan All Active Problems (Last Reviewed 10/01/19 @ 13:[address] Blayne Santana, DO) Respiratory tract infection due to COVID-19 virus (Acute) Pancytopenia (Acute) Chronic renal insufficiency, stage I (Acute) Endocarditis (Acute) Gastritis (Acute) Shortness of breath (Acute) Restrictive lung disease (Acute) Pneumonia (Acute) Bronchitis (Acute) Respiratory insufficiency (Acute) Anemia (Acute) Thrombocytopenia (Acute) Metabolic acidosis (Acute) ARF (acute renal failure) (Acute) Hyperphosphatemia (Acute) Idiopathic right ventricular dilation (Acute) Hypotension (Acute) History of tubal ligation (Resolved) History of umbilical hernia (Resolved) History of appendectomy (Resolved) History of hysterectomy (Resolved) History of cholecystectomy (Resolved) History of diarrhea (Resolved) Sepsis (Resolved) RECOMMENDATIONS: 1. Agree with steroid burst. Anticipate 12-day taper 2. Oxygen to keep saturations greater than 90% 3. Wean oxygen as tolerated, walking oximetry prior to discharge 4. Continue baseline medications 5. Patient advised to check saturations 3 times a day and call office with update 6. Patient may require short-term anxiolytic on discharge IMPRESSIONS: 1. Acute exacerbation of bronchiectasis/restrictive lung disease secondary to COVID-19 Patient appears to be tolerating well at this time. Patient has not had significant fever, but is receiving Tylenol and Motrin intermittently. No signs or symptoms of renal worsening noted. Blood cultures are currently pending. Agree with steroid burst, but anticipate a 12 to 14-day taper. Will need to watch oxygen saturations closely. Patient does have supplemental oxygen at home if necessary. We will continue to monitor, but if patient is able to be without fever and significant decompensation clinically, possibly able to discharge home in the next 24 to 48 hours with close outpatient follow-up. Unclear how much of overnight event was related to bronchospasm versus poor respiratory dynamics with anxiolytic response. Agree with empiric antibiotics for now. Would not recommend Plaquenil, but if patient were to decompensate, convalescent serum would be a consideration. 2. Anxiety/migraine/obesity/ulcerative colitis Complicates care, management, recovery and prognosis. Patient is responding to ibuprofen and acetaminophen, but this may be addressing fever and giving a false sense of lack of progression. Okay to continue with baseline medications from my perspective. 3. CODE STATUS Discussed with patient at length about CODE STATUS. After review of all options, patient is agreeable to a DNR Comfort Care arrest with intubation. She does understand that this could be reversed will full code by her family, but she trust that they will make a good judgment. Patient did state that she felt that her felt guilty about bringing this home from the [place]. Inpatient E&M: 62041 Subs Hosp L2
[2019-10-03 09:00] VITALS: BP 116/75; PULSE 90; RESP 18; TEMP 36.8; O2SAT 94
[2019-10-03] MEDS: predniSONE 20 MG Tablet 40 MG PO (09:13)
[2019-10-03] MEDS: guaiFENesin 1,200 MG Tablet 1200 MG PO ×2 (09:14→23:00)
[2019-10-03] MEDS: Enoxaparin 40 MG/0.4 ML Syringe SC (09:14)
[2019-10-03] MEDS: Furosemide 40 MG Tablet PO (09:14)
[2019-10-03] MEDS: Pantoprazole Sodium 40 MG Tablet PO (09:14)
[2019-10-03 09:56] LABS: Pathologist Review Reviewed
--- NOTE | 2019-10-03 10:55 | PCM.PN.HOSP ---
Patient Problems: Active and Suspected Problems (Last Reviewed 10/01/19 @ 13:[address] Blayne Santana, DO) Respiratory tract infection due to COVID-19 virus (Acute) Pancytopenia (Acute) Chronic renal insufficiency, stage I (Acute) Reason for Visit: COVID 19 Subjective: Short of breath at night. Coughing. Weak. Anxious about going home too early. Vitals/I&O's: Vital Signs Temp Pulse Resp BP Pulse Ox 36.8 C 90 18 116/75 94 10/03/19 09:00 10/03/19 09:00 10/03/19 09:00 10/03/19 09:00 10/03/19 09:00 Oxygen Flow Rate (L/min) 2 Oxygen Delivery Method Nasal Cannula Weight: 114.759 kg Body Mass Index (BMI) 38.5 Intake and Output for Last 24 Hours 10/01/19 10/02/19 10/03/19 23:59 23:59 23:59 Intake Total 1405 / 1405 655 / 655 1650 / 1650 Output Total 850 / 850 Balance 1405 / 1405 -195 / -195 1650 / 1650 General: Alert, No apparent distress HEENT: Atraumatic, Normocephalic Oral: Moist Mucosa, No Gingival or Mucosal Lesions/ Ulcerations Neck: No Nodes, Trachea Midline Lungs: Clear to auscultation, Normal air movement, No rhonchi, Wheezes - upper respiratory Cardiovascular: Regular rate, Regular Rhythm, Normal S1, Normal S2, No murmurs Abdomen: Bowel Sounds Present, Soft, Non Tender, Non-Distended, No Hepato-splenomegaly, Obese Extremities: No edema, No Calf Tenderness Skin: No rashes, No breakdown Psych/Mental Status: Appropriate, Anxious Microbiology Past 72 Hours 10/01/19 11:50 Urine, Clean Catch Urine Culture - Preliminary Gram variable jennifer 10/02/19 05:15 Sputum, Expectorated/Coughed Gram Stain - Final 10/01/19 11:50 Urine Catheter - Catheter Legionella Antigen - Final 10/01/19 11:50 Urine Catheter - Catheter Streptococcus pneumoniae Antigen (M - Final Laboratory Results 10/02/19 06:00: Diff Path Review Reviewed 10/03/19 06:06: WBC 2.7 L, RBC 3.35 L, Hgb 10.3 L, Hct 34.9 L, MCV 104.2 H, MCH 30.7, MCHC 29.5 L, RDW Std Deviation 59.0 H, RDW Coeff of Jaun 15.5 H, Plt Count 142 L, MPV 9.9, Immature Gran % (Auto) 0.700, Neut % (Auto) 71.9 H, Lymph % (Auto) 19.9, [place] % (Auto) 7.1, Eos % (Auto) 0.0, Baso % (Auto) 0.4, Absolute Neuts (auto) 1.9 L, Absolute Lymphs (auto) 0.53 L, Nucleated RBC % 0.7, Differential Comment SCANNED 10/03/19 06:06: Sodium 141, Potassium 3.8, Chloride 110 H, Carbon Dioxide 24.0, Anion Gap 7, BUN 18, Creatinine 1.27 H, Estim Creat Clear Calc 49.30, Est GFR (MDRD) Af Amer 56 L, Est GFR (MDRD) Non-Af 46 L, BUN/Creatinine Ratio 14.2, Glucose 104, Calcium 8.4 L Current Medications Acetaminophen (Tylenol) 650 mg PO Q6H PRN PRN PRN Reason: Pain Score 1-10/Temp > 100.7 F Last Admin: 10/02/19 05:18 Dose: 650 mg Documented by: Albuterol Sulfate (Ventolin Hfa (Sp)) 2 puff INHALATION Q4H PRN PRN PRN Reason: SHORTNESS OF BREATH Atorvastatin Calcium (Lipitor) 80 mg PO QHS [facility] Last Admin: 10/02/19 21:49 Dose: 80 mg Documented by: Dicyclomine HCl (Bentyl) 10 mg PO TIDAC [facility] Last Admin: 10/03/19 06:19 Dose: 10 mg Documented by: Enoxaparin Sodium (Lovenox) 40 mg SC DAILY [facility] Last Admin: 10/03/19 09:14 Dose: 40 mg Documented by: Furosemide (Lasix) 40 mg PO DAILY [facility] Last Admin: 10/03/19 09:14 Dose: 40 mg Documented by: Guaifenesin (Mucinex) 1,200 mg PO BID [facility] Last Admin: 10/03/19 09:14 Dose: 1,200 mg Documented by: Ceftriaxone Sodium 2 gm/ (Sodium Chloride) 50 mls @ 100 mls/hr IV Q24 [facility] Stop: 10/08/19 13:51 Last Infusion: 10/02/19 10:03 Dose: Infused Documented by: Azithromycin 500 mg/ Dextrose 255 mls @ 250 mls/hr IV Q24 [facility] Stop: 10/06/19 15:01 Last Infusion: 10/02/19 11:45 Dose: Infused Documented by: Ibuprofen (Motrin) 600 mg PO Q6H PRN PRN PRN Reason: pain 1-10 Last Admin: 10/01/19 15:33 Dose: 600 mg Documented by: Lorazepam (Ativan) 1 mg PO Q8H PRN PRN PRN Reason: ANXIETY Last Admin: 10/03/19 06:19 Dose: 1 mg Documented by: Miscellaneous Information (Pocket Chamber) 1 each INHALATION Q4H PRN PRN PRN Reason: albuterol inhaler Ondansetron HCl (Zofran) 4 mg IV Q6H PRN PRN PRN Reason: NAUSEA/VOMITING Last Admin: 10/02/19 19:00 Dose: 4 mg Documented by: Oxycodone HCl (Oxyir) 5 mg PO Q12 PRN PRN Reason: Pain Score 6-1010 Pantoprazole Sodium (Protonix) 40 mg PO DAILY [facility] Last Admin: 10/03/19 09:14 Dose: 40 mg Documented by: Paroxetine HCl (Paxil) 20 mg PO QHS [facility] Last Admin: 10/02/19 21:49 Dose: 20 mg Documented by: Potassium Chloride (K-Dur) 60 meq PO BIDCM [facility] Last Admin: 10/03/19 09:13 Dose: 60 meq Documented by: Prednisone () 40 mg PO DAILY@0800 [facility] Last Admin: 10/03/19 09:13 Dose: 40 mg Documented by: Sodium Chloride () 10 - 40 ml IV UD PRN PRN Reason: SALINE FLUSH Last Admin: 10/02/19 19:01 Dose: 10 ml Documented by: Temazepam (Restoril) 30 mg PO QHS PRN PRN PRN Reason: INSOMNIA Last Admin: 10/02/19 21:49 Dose: 30 mg Documented by: STROKE Vital Signs/Narrative: Vital Signs Temp Pulse Resp BP Pulse Ox 10/03/19 09:00 36.8 C 90 18 116/75 94 10/03/19 07:36 95 Medical Necessity - Tobacco Use Smoking Status: Former smoker Assessment/Plan All Active Problems (Last Reviewed 10/01/19 @ 13:[address] Blayne Santana, DO) Respiratory tract infection due to COVID-19 virus (Acute) Pancytopenia (Acute) Chronic renal insufficiency, stage I (Acute) Endocarditis (Acute) Gastritis (Acute) Shortness of breath (Acute) Restrictive lung disease (Acute) Pneumonia (Acute) Bronchitis (Acute) Respiratory insufficiency (Acute) Anemia (Acute) Thrombocytopenia (Acute) Metabolic acidosis (Acute) ARF (acute renal failure) (Acute) Hyperphosphatemia (Acute) Idiopathic right ventricular dilation (Acute) Hypotension (Acute) History of tubal ligation (Resolved) History of umbilical hernia (Resolved) History of appendectomy (Resolved) History of hysterectomy (Resolved) History of cholecystectomy (Resolved) History of diarrhea (Resolved) Sepsis (Resolved) 1. Sepsis: Present on admission. Secondary to pneumonia versus and escalation of her COVID-19. I am favoring the latter. But we will treat her empirically for bacterial pneumonia. Check cultures and adjust antibiotics accordingly. Patient will be on Rocephin and azithromycin for the time being. UCx showing gram negative jennifer, however, UA was unremarkable. 2. Presumed pneumococcal pneumonia. As above. Patient be on Rocephin and azithromycin. Check urinary antigens for Streptococcus Legionella, check sputum culture. 3. COVID-19, acute: Patient was tested 2 days ago and results came back positive today. Changes may be seen due to the COVID and possible developing acute lung injury associated with that. Currently, the patient is fairly stable at this time but if does decline may consider possible escalation of care including the ICU. 4. Anxiety: Complicating care. On 09/30: I told her that if she is having significant respiratory distress that we would have to avoid that as it can cause respiratory depression. She expressed understanding. Patient was also told that this will just be while she is here and not something that she would be continued on as outpatient. Again she expressed understanding to that. 5. Bronchiectasis, asthma, pulmonary hypertension: Complicate the patient's overall picture. Patient will be on prednisone as well as her bronchodilators. Pt requesting pulmonary consultation. Will consult Dr. Padron. On prednisone. 6. Migraine: Patient will have as needed acetaminophen and ibuprofen. Advised patient and nursing against narcotics for migraines/headaches. Try triptan. 7. VTE prophylaxis: Moderate risk patient will be on enoxaparin 8. Advanced care planning: Discussed with the patient. Patient wished to be DNR Comfort Care arrest. She is undecided about ventilator. She was informed that if she requires to be intubated that would save her life but it is unclear as to how long she would require being intubated. She wishes to think about it further. I told her that we will be leaving her DNR Comfort Care arrest with intubation if necessary. She said that would be high from her at this point time. 9. Ulcerative colitis: states that she has chronic abdominal pain. No active narcotics on OARRS. She states that her abdomen is chronically painful. I am concerned she may be embellishing her symptoms given inconsistent physical exam with symptoms. Try bentyl. Informed pt that I will decrease oxycodone to q12 given the dyspnea. Inpatient E&M: 23086 Subs Hosp L2
[2019-10-03] MEDS: 0.9% Saline Lock 10 ML Syringe IV ×3 (11:13→15:22)
[2019-10-03] MEDS: Ondansetron 4 MG/2 ML Vial IV (12:40)
--- NOTE | 2019-10-03 12:53 | NURSING ---
Addendum entered by Suzie Welch 10/03/19 20:02: When this RN was delivering dinner tray patient apologized to this RN stating, I am sorry if you feel that I have picked on you today. Patient resting comfortably in bed- no visual signs of pain or distress. Patient asked this RN when end of shift is. Notified that technically 1930 but maintenance supervisor 2nd shift will be here and we will be giving report from 1899 to 1929. Patient verbalized understanding. At 1915 patient called out acute care occupational therapist light and notified this RN that her temperature is going up and that her headache is coming back. Notified patient that staff is in the middle of report. Patient notified that maintenance supervisor 2nd shift would be in shortly to complete rounds and recheck vitals. patient verbalized understanding and denied further needs. Addendum entered by Suzie Welch 10/03/19 17:23: This RN called into patient's room to notify her of intent to come into room shortly and offered prn medications. Patient requested Ativan and Tylenol. Patient had been laying in bed quietly prior to calling into room. Patient then got up out of bed and grabbed her box of tissues and emesis bag and began coughing violently as sat on side of bed. Upon entry patient began flailing around on the side of the bed and would not hold still to obtain b/p. Pt notified her temperature is 99.1- however, pt immediately states, yeah, but what was it was earlier...101? Notified patient that her oxygen is currently 100%. As this RN stayed in patient's room she began to calm down. Patient notified of doctor's order to check a strep test due to complaints of sore throat. Also, this RN used flash light to look at patient's throat. Throat slightly red but no other abnormality noted. Swab collected- from back of bilateral sides of throat and sent. Patient has been complaining entire shift that oxyir was changed from every 4 hours to every 12. patient angry and requesting that doctor be called and asked if it could change to every 6 hours. Patient was educated by Dr. Santana and this RN that reason for cutting back is because 1- she isn't on it at home, and 2- narcotics have more potential bad side effects than good and can further effect breathing. Dr. Santana requested it be passed on for narcotics NOT to be increased for duration of stay. Patient to be notified of same. Original Note: After intial assessment and med pass this RN asked patient if she needed anything further. She voiced frustration and states she wants to stay at the hospital until Sunday. Notified of vitals that are WNL and that she is on her home oxygen at 2L. Patient denied further needs. This RN left room and within 2 minutes of leaving pt. put on her call light and asked this RN to come back in so she can ask a question. Notified patient would be back in when next medications are scheduled if not before. Pt verbalized understanding. When in hanging patient's first antibiotic this AM, she pulled out her phone and had this RN listen to her breathing and forcefully wheezing and then state, I can't breathe. This RN asked patient if she notified staff. She states she did but the nurses were busy and she can't blame them. She states that she notified lab and they went and got Dr. Padron to come into her room. She states that he was with her in room and spent some time talking to her. She states that he told her that he doesn't feel she is ready to be d/c'ed tomorrow but that it is up to Dr. Santana. This RN called into patient's room to see if she needed anything and was notified this RN was bringing in her lunch. This RN the took patient her lunch tray and she was sitting on bed in underwear and states that she keeps being incontinent. With thermometer in her mouth, and immediately pulls it out and states, see? I have a fever! Thermometer read 100.1. Patient has not had a fever since after admission. Notified patient that her temperature will be taken with other vitals in an hour or so. Understanding verbalized. Patient then notified this RN that years ago my and I sued the [facility]. We settled out of court. 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 Patient states she wishes her PCP could be here. She also verbalized anger that the time increase for her oxyir has been increased, as it is the only thing helping her stomach pain. This RN provided emotional support. Patient requested this RN to look at her throat because it is very sore today. Notified patient that assessment and vitals will be taken in the next hour or two. Understanding verbalized.
[2019-10-03 14:50] VITALS: BP 139/101; PULSE 97; RESP 20; TEMP 37.3; O2SAT 99
[2019-10-03] MEDS: Acetaminophen 325 MG Tablet 650 MG PO (15:21)
[2019-10-03 15:23] LABS: D-Dimer Quantitative (DVT/PE) 0.49 FEU/ug/m (0.27-0.49)
--- NOTE | 2019-10-03 22:45 | NURSING ---
Pt observed on room camera for 20 minutes before entering room to complete vitals, assessment, and night meds. Pt resting in bed, playing on cell phone, putting on bipap, drinking water. Respirations 17. No coughing, or SOB apparent. Pt is relaxed. Upon entering room pt describes having multiple coughing fits to the point of not being able to breathe as well as having temps into the 101's. Pt temp at this time is 99.3 SpO2 95%. She becomes tearful when describing how her oxy was changed from q4 to q12. States this is the only relief she has found from her chronic stomach pain. RN explained that narcotics can affect breathing which is why she is here for dx of COVID and reminded pt about her SOB episodes she was describing earlier. Conversation able to be redirected at this point and pt carried on a conversation about family and tv shows. Pt was pleasant, smiling and laughing. Oxy also given with night time meds for pain of 8 in abd.
[2019-10-03 22:49] VITALS: BP 123/79; PULSE 85; RESP 17; TEMP 37.4; O2SAT 95
[2019-10-03] MEDS: Atorvastatin Calcium 80 MG Tablet PO (23:00)
[2019-10-03] MEDS: Paroxetine 20 MG Tablet PO (23:00)
[2019-10-04 04:09] VITALS: BP 128/84; PULSE 87; RESP 18; TEMP 38.1; O2SAT 94
[2019-10-04] MEDS: Acetaminophen 325 MG Tablet 650 MG PO (04:14)
[2019-10-04] MEDS: Dicyclomine 10 MG Capsule PO ×2 (05:57→10:50)
[2019-10-04] MEDS: oxyCODONE 5 MG Tablet PO (07:03)
--- NOTE | 2019-10-04 07:03 | NURSING ---
0500 Pt continues to voice frustration about prn oxy being decreased. States she wishes to speak with someone about her care. After conversation pt understands that with it being a weekend and early in the morning her most immediate option would be to speak with a charge account identification clerk. She is upset that this option will not immediately be able to change her pain medication order as she states that her abdomen is still very painful. She states that she is not seeking drugs and that this is COVID 19 and not just some virus. Further stating that she could from this. Encouraged pt to voice her concerns to the attending physician as this would be the most immediate and direct route to altering orders. RN offered to contact night hospitalist, also voicing a sore throat, but refused possible order for cepacol lozenge. Oxy order later changed to q6h after Dr. Padron rounded, pt states she is satisfied with this change and no longer wishes to speak with anyone concerning her care. Pt medicated at this time and voices no other needs.
--- NOTE | 2019-10-04 07:31 | PCM.PN.PUL ---
Patient Problems: Active and Suspected Problems (Last Reviewed 10/01/19 @ 13:[address] Blayne Santana, DO) Respiratory tract infection due to COVID-19 virus (Acute) Pancytopenia (Acute) Chronic renal insufficiency, stage I (Acute) Subjective: Patient did okay. Patient continues to have intermittent periods of tachypnea with anxiety. Patient did spike a fever overnight. Patient has remained on minimal nasal cannula oxygen. Patient is reporting some abdominal pain and increasing anxiety. - Physical Exam Vitals/I&O's: Vital Signs Temp Pulse Resp BP Pulse Ox 38.1 C H 87 18 128/84 H 94 10/04/19 04:09 10/04/19 04:09 10/04/19 04:09 10/04/19 04:09 10/04/19 04:09 Oxygen Flow Rate (L/min) 2 Oxygen Delivery Method Nasal Cannula Weight: 114.759 kg Body Mass Index (BMI) 38.5 Intake and Output for Last 24 Hours 10/02/19 10/03/19 10/04/19 23:59 23:59 23:59 Intake Total 655 / 655 3255 / 3255 1200 / 1200 Output Total 850 / 850 Balance -195 / -195 3255 / 3255 1200 / 1200 General: Alert, Oriented x3, - - Very anxious and tearful. Obese. No conversational dyspnea. HEENT: Atraumatic, PERRLA, EOMI, Normocephalic, - - No scleral icterus or injection noted. Glasses in place. Oral: Moist Mucosa, No Gingival or Mucosal Lesions/ Ulcerations Neck: Supple, No JVD, No Nodes, Trachea Midline Lungs: No rhonchi, Diminished, Wheezes, - - Symmetric expansion Cardiovascular: Regular rate, Regular Rhythm, Normal S1, Normal S2, No murmurs, No rub noted, No Gallop Abdomen: Bowel Sounds Present, Soft, Non-Distended, Obese, Tender Extremities: No clubbing, No cyanosis, Edema - Trace to 1+ lower extremity Skin: No rashes, No breakdown Musculoskeletal: No Tenderness to Palpation of Joints or Extremities Lymphatic: No Cervical, Supraclavicular, or Inguinal Adenopathy Neurological: Cranial nerves II-XII grossly intact, Neuro grossly intact, Motor Exam 5/5 strength throughout Psych/Mental Status: Anxious, Restless Microbiology Past 72 Hours 10/01/19 11:50 Urine, Clean Catch Urine Culture - Final Lactobacillus sp. 10/03/19 15:28 Mucosa - Throat Group A Streptococcus Rapid Screen - Preliminary 10/02/19 05:15 Sputum, Expectorated/Coughed Gram Stain - Final 10/02/19 05:15 Sputum, Expectorated/Coughed Respiratory Culture - Preliminary Appears to be normal respiratory orin. Further studies to follow. 10/01/19 11:50 Urine Catheter - Catheter Legionella Antigen - Final 10/01/19 11:50 Urine Catheter - Catheter Streptococcus pneumoniae Antigen (M - Final Laboratory Results 10/02/19 06:00: Diff Path Review Reviewed 10/03/19 06:06: Differential Comment SCANNED 10/03/19 07:10: Sodium 141, Potassium 3.8, Chloride 110 H, Carbon Dioxide 24.0, Anion Gap 7, BUN 18, Creatinine 1.27 H, Estim Creat Clear Calc 49.30, Est GFR (MDRD) Af Amer 56 L, Est GFR (MDRD) Non-Af 46 L, BUN/Creatinine Ratio 14.2, Glucose 104, Calcium 8.4 L 10/03/19 07:10: D-Dimer Quant (PE/DVT) 0.49 Current Medications Acetaminophen (Tylenol) 650 mg PO Q6H PRN PRN PRN Reason: Pain Score 1-10/Temp > 100.7 F Last Admin: 10/04/19 04:14 Dose: 650 mg Documented by: Albuterol Sulfate (Ventolin Hfa (Sp)) 2 puff INHALATION Q4H PRN PRN PRN Reason: SHORTNESS OF BREATH Atorvastatin Calcium (Lipitor) 80 mg PO QHS [facility] Last Admin: 10/03/19 23:00 Dose: 80 mg Documented by: Dicyclomine HCl (Bentyl) 10 mg PO TIDAC [facility] Last Admin: 10/04/19 05:57 Dose: 10 mg Documented by: Enoxaparin Sodium (Lovenox) 40 mg SC DAILY [facility] Last Admin: 10/03/19 09:14 Dose: 40 mg Documented by: Furosemide (Lasix) 40 mg PO DAILY [facility] Last Admin: 10/03/19 09:14 Dose: 40 mg Documented by: Guaifenesin (Mucinex) 1,200 mg PO BID [facility] Last Admin: 10/03/19 23:00 Dose: 1,200 mg Documented by: Ceftriaxone Sodium 2 gm/ (Sodium Chloride) 50 mls @ 100 mls/hr IV Q24 [facility] Stop: 10/08/19 13:51 Last Infusion: 10/03/19 12:00 Dose: Infused Documented by: Azithromycin 500 mg/ Dextrose 255 mls @ 250 mls/hr IV Q24 [facility] Stop: 10/06/19 15:01 Last Infusion: 10/03/19 13:45 Dose: Infused Documented by: Ibuprofen (Motrin) 600 mg PO Q6H PRN PRN PRN Reason: pain 1-10/10 Last Admin: 10/01/19 15:33 Dose: 600 mg Documented by: Lorazepam (Ativan) 1 mg PO Q8H PRN PRN PRN Reason: ANXIETY Last Admin: 10/03/19 23:21 Dose: 1 mg Documented by: Miscellaneous Information (Pocket Chamber) 1 each INHALATION Q4H PRN PRN PRN Reason: albuterol inhaler Ondansetron HCl (Zofran) 4 mg IV Q6H PRN PRN PRN Reason: NAUSEA/VOMITING Last Admin: 10/03/19 12:40 Dose: 4 mg Documented by: Oxycodone HCl (Oxyir) 5 mg PO Q6H PRN PRN PRN Reason: Pain Score 6-10/10 Last Admin: 10/04/19 07:03 Dose: 5 mg Documented by: Pantoprazole Sodium (Protonix) 40 mg PO DAILY [facility] Last Admin: 10/03/19 09:14 Dose: 40 mg Documented by: Paroxetine HCl (Paxil) 20 mg PO QHS [facility] Last Admin: 10/03/19 23:00 Dose: 20 mg Documented by: Potassium Chloride (K-Dur) 60 meq PO BIDCM [facility] Last Admin: 10/03/19 17:54 Dose: 60 meq Documented by: Prednisone () 40 mg PO DAILY@0800 [facility] Last Admin: 10/03/19 09:13 Dose: 40 mg Documented by: Quetiapine Fumarate (Seroquel) 50 mg PO QHS [facility] Sodium Chloride () 10 - 40 ml IV UD PRN PRN Reason: SALINE FLUSH Last Admin: 10/03/19 15:22 Dose: 10 ml Documented by: Temazepam (Restoril) 30 mg PO QHS PRN PRN PRN Reason: INSOMNIA Last Admin: 10/02/19 21:49 Dose: 30 mg Documented by: Medical Necessity - Tobacco Use Smoking Status: Former smoker Assessment/Plan All Active Problems (Last Reviewed 10/01/19 @ 13:[address] Blayne Santana, DO) Respiratory tract infection due to COVID-19 virus (Acute) Pancytopenia (Acute) Chronic renal insufficiency, stage I (Acute) Endocarditis (Acute) Gastritis (Acute) Shortness of breath (Acute) Restrictive lung disease (Acute) Pneumonia (Acute) Bronchitis (Acute) Respiratory insufficiency (Acute) Anemia (Acute) Thrombocytopenia (Acute) Metabolic acidosis (Acute) ARF (acute renal failure) (Acute) Hyperphosphatemia (Acute) Idiopathic right ventricular dilation (Acute) Hypotension (Acute) History of tubal ligation (Resolved) History of umbilical hernia (Resolved) History of appendectomy (Resolved) History of hysterectomy (Resolved) History of cholecystectomy (Resolved) History of diarrhea (Resolved) Sepsis (Resolved) RECOMMENDATIONS: 1. Agree with steroid burst. Anticipate 12-day taper 2. Oxygen to keep saturations greater than 90% 3. Wean oxygen as tolerated, walking oximetry prior to discharge 4. Continue baseline medications. Add Seroquel for anxiety 5. Patient advised to check saturations 3 times a day and call office with update 6. Patient may require short-term anxiolytic on discharge IMPRESSIONS: 1. Acute exacerbation of bronchiectasis/restrictive lung disease secondary to COVID-19 Patient appears to be tolerating well at this time. Patient has not had significant fever, but is receiving Tylenol and Motrin intermittently. No signs or symptoms of renal worsening noted. Blood cultures are currently pending. Agree with steroid burst, but anticipate a 12 to 14-day taper. Will need to watch oxygen saturations closely. Oxygen saturations have been doing okay, but patient has had fever overnight. Unclear if this represents the waxing and waning course of COVID. Will attempt to add a longer acting anxiolytic to help with pulmonary mechanics. D-dimer yesterday was not suggestive of progression. 2. Anxiety/migraine/obesity/ulcerative colitis Complicates care, management, recovery and prognosis. Patient is responding to ibuprofen and acetaminophen, but this may be addressing fever and giving a false sense of lack of progression. Okay to continue with baseline medications from my perspective. 3. CODE STATUS Discussed with patient at length about CODE STATUS. After review of all options, patient is agreeable to a DNR Comfort Care arrest with intubation. She does understand that this could be reversed will full code by her family, but she trust that they will make a good judgment. Patient did state that she felt that her felt guilty about bringing this [place] from [place]. Inpatient E&M: 83313 Subs Hosp L2
--- NOTE | 2019-10-04 07:56 | NURSING ---
jonathan pulled and erin grant pt's room and said that she can't take it d/t dr saying that she is not allowed to take motrin - put in sharps container to get rid of it as not allowed to take out of room
[2019-10-04] MEDS: LORazepam 1 MG Tablet PO (07:58)
[2019-10-04] MEDS: predniSONE 20 MG Tablet 40 MG PO (07:58)
[2019-10-04] MEDS: Ondansetron 4 MG/2 ML Vial IV (07:58)
[2019-10-04] MEDS: 0.9% Saline Lock 10 ML Syringe IV (07:59)
[2019-10-04 08:04] VITALS: BP 113/70; PULSE 99; RESP 18; TEMP 37.5; O2SAT 95
--- NOTE | 2019-10-04 09:45 | NURSING ---
Seth Felder called [employer]charger mechanic and stated that pt had called him stating that she was coming home and wanted him to come pick her up. He was asking for clarification about discharge, this RN informed him that the pt had not been discharged and in fact had been ordered and MRI of her brain due to her headaches and a CT scan for her stomach pain. he relayed that the pt has been having this stomach pain for over a year and that they are following up with a GI doctor in [place], he also stated that the pt has been managing pain at home without requiring pain medicine and specifically asked that we do not send pt home with pain meds. he also reported that she does get headaches at times and that she usually can manage at home. he is mostly concerned about the respiratory infection and making sure that she is appropriate for DC in regards to respiratory. informed Seth that I would speak with patient and make sure she knew about MRI and CT scan orders. I would also speak with Dr Santana about discharging from respiratory standpoint. called into patient room and explained that Dr Santana had ordered MRI and CT scan for her headache and stomach pain. she reported that she does not want the studies done and that she will follow up as an outpatient. explained that I will speak with Dr Santana about refusing tests and if he does not feel that she is appropriate for DC, she would be leaving against medical advice. pt verbalized understanding. all of the above was explained to Dr Santana and he agreed that pt could follow up as outpatient. orders for MRI, CT and NIH were cancelled per his order.
--- NOTE | 2019-10-04 10:20 | PCM.DC ---
- Discharge Diagnoses Current Active Problems: Current Active and Chronic Problems (Last Reviewed 10/01/19 @ 13:[address] Blayne Santana, DO) Respiratory tract infection due to COVID-19 virus (Acute) Pancytopenia (Acute) Chronic renal insufficiency, stage I (Acute) Respiratory failure with hypoxia (Chronic) Morbid obesity (Chronic) You will use the following diet at home:: No restrictions Your food should be the consistency of: Regular Discharge Activity: Return to Normal Activity Call your doctor if you observe: Fever of 101 or Higher, Shortness of breath, - - refractory headache. worsening abdominal pain. Allergies/Adverse Reactions: Allergies Penicillins Allergy (Verified 05/22/19 11:07) Unknown DUST Allergy (Uncoded 05/12/19 10:13) Unknown SEASONAL Allergy (Uncoded 05/12/19 10:13) Unknown Medications to take at Discharge Albuterol Inhaler [Ventolin Hfa] 1 - 2 puff INHALATION Q4H PRN PRN 12/09/18 Pantoprazole Sodium [Protonix] 40 mg PO DAILY 12/09/18 Rosuvastatin Calcium 40 mg PO QHS 12/09/18 Acetaminophen [Tylenol Tablet] 650 mg PO Q6H PRN PRN tab 12/13/18 Temazepam [Restoril] 30 mg PO QHS PRN PRN #4 cap 01/11/19 PEP device 0 .ROUTE .MEDSUPPLY #1 ea 05/12/19 Furosemide 40 mg PO DAILY 10/01/19 Paxil 20 mg PO QHS 10/01/19 Potassium Chloride [K-Dur] 60 meq PO BID 10/01/19 Aspirin 81 mg PO DAILY #1 tab.chew 10/04/19 Dicyclomine HCl [Bentyl] 10 mg PO TIDAC #30 cap 10/04/19 Guaifenesin [Mucinex] 1,200 mg PO BID #20 tab 10/04/19 Ibuprofen [Motrin] 600 mg PO Q6H PRN PRN tablet 10/04/19 Lorazepam [Ativan] 1 mg PO Q8H PRN PRN 2 Days #6 tablet 10/04/19 Ondansetron HCl [Zofran] 4 mg PO DAILY PRN PRN #0 10/04/19 Prednisone 1 tab PO DAILY #30 tab.ds.pk 10/04/19 Prochlorperazine Maleate [Compazine] 10 mg PO Q8H PRN #20 tab 10/04/19 levoFLOXacin tablet [Levaquin tablet] 750 mg PO DAILY #5 tab 10/04/19 The following prescriptions were given: Aspirin 81 mg PO DAILY #1 tab.chew Lorazepam [Ativan] 1 mg PO Q8H PRN PRN 2 Days #6 tablet PRN Reason: Anxiety Transmission Status: Received by [address] Dicyclomine HCl [Bentyl] 10 mg PO TIDAC #30 cap Transmission Status: Pending to [address] Prochlorperazine Maleate [Compazine] 10 mg PO Q8H PRN #20 tab PRN Reason: nausea and vomiting Transmission Status: Pending to [address] levoFLOXacin tablet [Levaquin tablet] 750 mg PO DAILY #5 tab Transmission Status: Pending to [address] Guaifenesin [Mucinex] 1,200 mg PO BID #20 tab Transmission Status: Pending to [address] Prednisone 1 tab PO DAILY #30 tab.ds.pk Transmission Status: Pending to [address] Primary Care Physician: Karl Moran MD [Primary Care Provider] - Within 1 Week Test Results: Test results from this visit will be discussed in further detail at your follow-up appointment, if applicable. Please Follow Up With: Patricia Vallejo NP-C When: 2 weeks Please Follow Up With: Michael Romero MD - neurology When: 4-6 weeks Proposed Discharge Date: 10/04/19
--- NOTE | 2019-10-04 10:22 | PCM.DC.SUM ---
Discharge Date and Diagnosis - Problem List Patient Problems: Active and Suspected Problems (Last Reviewed 10/01/19 @ 13:[address] Blayen Santana DO) Respiratory tract infection due to COVID-19 virus (Acute) Migraine (Suspected) Sepsis (Acute) Date of Admission: 10/01/19 Date of Discharge: 10/04/19 - Primary Discharge Diagnosis Active and Suspected Problems (Last Reviewed 10/01/19 @ 13:[address] Blayne Santana DO) Respiratory tract infection due to COVID-19 virus (Acute) Pancytopenia (Acute) Chronic renal insufficiency, stage I (Acute) - Secondary Discharge Diagnosis Chronic Problems (Last Reviewed 10/01/19 @ 13:[address] Blayne Santana DO) Colitis (Chronic) Osteoarthritis (Chronic) Chronic renal failure (Chronic) Depression (Chronic) GENNARO (obstructive sleep apnea) (Chronic) Asthma (Chronic) Gastroesophageal reflux disease (Chronic) Hypertension (Chronic) Colitis with rectal bleeding (Chronic) Respiratory failure with hypoxia (Chronic) Abnormal liver CT (Chronic) hemangioma Leukopenia (Chronic) Bronchiectasis (Chronic) HLD (hyperlipidemia) (Chronic) Morbid obesity (Chronic) Anxiety (Chronic) Arthritis (Chronic) Hypertension (Chronic) Hospital Course and Treatment Imaging Results: 10/04/19 09:18 MRI Brain [Brain without Contrast] [MRI] Urgent Clinical Impression(s) from Imaging Studies Chest X-Ray 10/01/19 10:26 IMPRESSION: Mild increased markings at the left lung base suggestive of atelectasis and/or early infiltrate. The right lung is clear. Electronically Signed: Kamran Velazquez, at 11:45 EDT , Service support , Sam aPdron MD: pulmonology Operations: None Procedures: None Summary of Care Provided: The patient is a 58 year old F presents with shortness of breath. Patient had not been feeling well as of last week and was checked for COVID-19 and came back positive. Patient was a clinically septic from what may have been pneumonia or potential worsening of her COVID patient was brought in. Patient was started on Rocephin as well as azithromycin for pneumonia. From respiratory standpoint, patient did well. Patient was started on steroids and the patient demanded to see her crusher and binder operator, Dr. Padron, during this admission. Patient today is on room air and talking in full sentences without any difficulty. Patient is stable from a respiratory standpoint but would continue with the prednisone taper plus antibiotics with levofloxacin complete a 7-day course of antibiotics. Complicating her stay is myriad of symptoms, including anxiety. From anxiety standpoint patient was requesting from the initial onset something for her anxiety and patient did receive a lorazepam as needed which she has been taking. Next, is abdominal pain which is chronic which she is not actively taking any medications upon review of her OARRS report. Patient said that she had been on something but was taken off by her water control station engineer because she is status post cholecystectomy. She was requesting oxycodone and then made some adjustments but then she continued to ask for that to be changed. Yesterday, I told her I will change it to twice daily because she was having dyspnea and then she continued to ask the nurse throughout the day if I would change that. Patient has been eating without difficulty. Nursing discussed with the patient's who told nursing that she has had a history of issues with pain medicine and I recommend that she not be discharged with any pain medications. I did give patient opportunity to have a CAT scan of her abdomen pelvis to see what was going on because if that looked normal that I would not feel any indication to continue with narcotic pain medication particularly since her exam is been inconsistent with her symptoms and the fact she is also eating as well. Patient did also complain of unilateral visual changes in her left eye. The also is associated with a intense headache at that time. Symptoms did resolve. Neurologic exam was unremarkable. Told the patient that we should get an MRI at the minimum being that she does not get symptoms like this even though I suspect it is a migraine to evaluate for stroke. She initially agreed and then later said that she did not want to have it. We recommend patient follow-up with neurology for further evaluation and that she take an aspirin daily until neurology indicates otherwise. 's overall from a respiratory standpoint, patient is doing much better. Patient developed other myriad of symptoms during the course of her hospitalization. And patient was on a camera during her hospitalization and would seem, according to nursing, to be acting much worse and distress when they were going to the room as when she would just be on the camera. [] Patient Problems: Active and Suspected Problems (Last Reviewed 10/01/19 @ 13:[address] Blayne Santana, DO) Respiratory tract infection due to COVID-19 virus (Acute) Migraine (Suspected) Sepsis (Acute) - Physical Exam Vitals/I&O's: Vital Signs Temp Pulse Resp BP Pulse Ox 37.5 C H 99 18 113/70 95 10/04/19 08:04 10/04/19 08:04 10/04/19 08:04 10/04/19 08:04 10/04/19 08:04 Oxygen Flow Rate (L/min) 2 Oxygen Delivery Method Nasal Cannula Weight: 114.759 kg Body Mass Index (BMI) 38.5 Intake and Output for Last 24 Hours 10/02/19 10/03/19 10/04/19 23:59 23:59 23:59 Intake Total 655 / 655 3255 / 3255 1200 / 1200 Output Total 850 / 850 Balance -195 / -195 3255 / 3255 1200 / 1200 General: Alert, Oriented x3, Cooperative, No apparent distress HEENT: Atraumatic, PERRLA, EOMI, Normocephalic Oral: Moist Mucosa, No Gingival or Mucosal Lesions/ Ulcerations Neck: No Nodes, Trachea Midline Lungs: Clear to auscultation, Normal air movement, No rhonchi, No wheeze, No rales Cardiovascular: Regular rate, Regular Rhythm, Normal S1, Normal S2, No murmurs Abdomen: Bowel Sounds Present, Soft, Non Tender, Non-Distended, No Hepato-splenomegaly Extremities: No edema, No Calf Tenderness Skin: No rashes, No breakdown Musculoskeletal: No Tenderness to Palpation of Joints or Extremities, No Muscle Wasting Neurological: Cranial nerves II-XII grossly intact, Motor Exam 5/5 strength throughout, Coordination normal, - - visual akbar intact Psych/Mental Status: Anxious Microbiology Past 72 Hours 10/02/19 05:15 Sputum, Expectorated/Coughed Gram Stain - Final 10/02/19 05:15 Sputum, Expectorated/Coughed Respiratory Culture - Final Presumptive C albicans Mixed Radha 10/01/19 11:50 Urine, Clean Catch Urine Culture - Final Lactobacillus sp. 10/03/19 15:28 Mucosa - Throat Group A Streptococcus Rapid Screen - Preliminary 10/01/19 11:50 Urine Catheter - Catheter Legionella Antigen - Final 10/01/19 11:50 Urine Catheter - Catheter Streptococcus pneumoniae Antigen (M - Final Laboratory Results 10/03/19 07:10: Sodium 141, Potassium 3.8, Chloride 110 H, Carbon Dioxide 24.0, Anion Gap 7, BUN 18, Creatinine 1.27 H, Estim Creat Clear Calc 49.30, Est GFR (MDRD) Af Amer 56 L, Est GFR (MDRD) Non-Af 46 L, BUN/Creatinine Ratio 14.2, Glucose 104, Calcium 8.4 L 10/03/19 07:10: D-Dimer Quant (PE/DVT) 0.49 Current Medications Acetaminophen (Tylenol) 650 mg PO Q6H PRN PRN PRN Reason: Pain Score 1-10/Temp > 100.7 F Last Admin: 10/04/19 04:14 Dose: 650 mg Documented by: Albuterol Sulfate (Ventolin Hfa (Sp)) 2 puff INHALATION Q4H PRN PRN PRN Reason: SHORTNESS OF BREATH Atorvastatin Calcium (Lipitor) 80 mg PO QHS [facility] Last Admin: 10/03/19 23:00 Dose: 80 mg Documented by: Dicyclomine HCl (Bentyl) 10 mg PO TIDAC [facility] Last Admin: 10/04/19 05:57 Dose: 10 mg Documented by: Enoxaparin Sodium (Lovenox) 40 mg SC DAILY [facility] Last Admin: 10/03/19 09:14 Dose: 40 mg Documented by: Furosemide (Lasix) 40 mg PO DAILY [facility] Last Admin: 10/03/19 09:14 Dose: 40 mg Documented by: Guaifenesin (Mucinex) 1,200 mg PO BID [facility] Last Admin: 10/03/19 23:00 Dose: 1,200 mg Documented by: Ceftriaxone Sodium 2 gm/ (Sodium Chloride) 50 mls @ 100 mls/hr IV Q24 [facility] Stop: 10/08/19 13:51 Last Infusion: 10/03/19 12:00 Dose: Infused Documented by: Azithromycin 500 mg/ Dextrose 255 mls @ 250 mls/hr IV Q24 [facility] Stop: 10/06/19 15:01 Last Infusion: 10/03/19 13:45 Dose: Infused Documented by: Ibuprofen (Motrin) 600 mg PO Q6H PRN PRN PRN Reason: pain 1-03/13 Last Admin: 10/01/19 15:33 Dose: 600 mg Documented by: Lorazepam (Ativan) 1 mg PO Q8H PRN PRN PRN Reason: ANXIETY Last Admin: 10/04/19 07:58 Dose: 1 mg Documented by: Miscellaneous Information (Pocket Chamber) 1 each INHALATION Q4H PRN PRN PRN Reason: albuterol inhaler Ondansetron HCl (Zofran) 4 mg IV Q6H PRN PRN PRN Reason: NAUSEA/VOMITING Last Admin: 10/04/19 07:58 Dose: 4 mg Documented by: Oxycodone HCl (Oxyir) 5 mg PO Q6H PRN PRN PRN Reason: Pain Score 6-10/10 Last Admin: 10/04/19 07:03 Dose: 5 mg Documented by: Pantoprazole Sodium (Protonix) 40 mg PO DAILY [facility] Last Admin: 10/03/19 09:14 Dose: 40 mg Documented by: Paroxetine HCl (Paxil) 20 mg PO QHS [facility] Last Admin: 10/03/19 23:00 Dose: 20 mg Documented by: Potassium Chloride (K-Dur) 60 meq PO BIDCM [facility] Last Admin: 10/04/19 07:58 Dose: 60 meq Documented by: Prednisone () 40 mg PO DAILY@0800 [facility] Last Admin: 10/04/19 07:58 Dose: 40 mg Documented by: Quetiapine Fumarate (Seroquel) 50 mg PO QHS [facility] Sodium Chloride () 10 - 40 ml IV UD PRN PRN Reason: SALINE FLUSH Last Admin: 10/04/19 07:59 Dose: 10 ml Documented by: Temazepam (Restoril) 30 mg PO QHS PRN PRN PRN Reason: INSOMNIA Last Admin: 10/02/19 21:49 Dose: 30 mg Documented by: Discharge Diet: No Restrictions Discharge Activity: Return to Normal Activity Call your doctor if you observe: Fever of 101 or Higher, Shortness of breath, - - refractory headache. worsening abdominal pain. Home Medications: Medications to take at Discharge Albuterol Inhaler [Ventolin Hfa] 1 - 2 puff INHALATION Q4H PRN PRN 12/09/18 Pantoprazole Sodium [Protonix] 40 mg PO DAILY 12/09/18 Rosuvastatin Calcium 40 mg PO QHS 12/09/18 Acetaminophen [Tylenol Tablet] 650 mg PO Q6H PRN PRN tab 12/13/18 Temazepam [Restoril] 30 mg PO QHS PRN PRN #4 cap 01/11/19 PEP device 0 .ROUTE .MEDSUPPLY #1 ea 05/12/19 Furosemide 40 mg PO DAILY 10/01/19 Paxil 20 mg PO QHS 10/01/19 Potassium Chloride [K-Dur] 60 meq PO BID 10/01/19 Aspirin 81 mg PO DAILY #1 tab.chew 10/04/19 Dicyclomine HCl [Bentyl] 10 mg PO TIDAC #30 cap 10/04/19 Guaifenesin [Mucinex] 1,200 mg PO BID #20 tab 10/04/19 Ibuprofen [Motrin] 600 mg PO Q6H PRN PRN tablet 10/04/19 Lorazepam [Ativan] 1 mg PO Q8H PRN PRN 2 Days #6 tablet 10/04/19 Ondansetron HCl [Zofran] 4 mg PO DAILY PRN PRN #0 10/04/19 Prednisone 1 tab PO DAILY #30 tab.ds.pk 10/04/19 Prochlorperazine Maleate [Compazine] 10 mg PO Q8H PRN #20 tab 10/04/19 levoFLOXacin tablet [Levaquin tablet] 750 mg PO DAILY #5 tab 10/04/19 Following Prescrptions Were Given to Patient: Aspirin 81 mg PO DAILY #1 tab.chew Lorazepam [Ativan] 1 mg PO Q8H PRN PRN 2 Days #6 tablet PRN Reason: Anxiety Transmission Status: Received by [address] Dicyclomine HCl [Bentyl] 10 mg PO TIDAC #30 cap [facility]: [facility]IN Prochlorperazine Maleate [Compazine] 10 mg PO Q8H PRN #20 tab PRN Reason: nausea and vomiting Transmission Status: Pending to [facility] MAIN levoFLOXacin tablet [Levaquin tablet] 750 mg PO DAILY #5 tab Transmission Status: Pending to [facility] AID-[address] [place] [address] Guaifenesin [Mucinex] 1,200 mg PO BID #20 tab Transmission Status: Pending to [address] Prednisone 1 tab PO DAILY #30 tab.ds.pk Transmission Status: [facility] to [facility] Primary Care Physician: Karl Moran MD [Primary Care Provider] - Within 1 Week Please Follow Up With: Patricia Vallejo NP-C When: 2 weeks Please Follow Up With: Michael Romero MD - neurology When: 4-6 weeks Please Follow Up With: Neptali Watson When: 1-2 months Disposition: Home Minutes spent on discharge:: 45 Patient Condition:: Good Medical Necessity - Tobacco Use Smoking Status: Former smoker Meaningful Use Info Meaningful Use Diagnoses (Choose all that apply): None applicable Inpatient E&M: 60339 Disch Hosp
[2019-10-04] MEDS: Furosemide 40 MG Tablet PO (10:50)
[2019-10-04] MEDS: Pantoprazole Sodium 40 MG Tablet PO (10:50)
[2019-10-04] MEDS: guaiFENesin 1,200 MG Tablet 1200 MG PO (10:50)
--- NOTE | 2019-10-04 11:11 | NURSING ---
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 PT WANTED HER CALLED SO SHE COULD LEAVE ....
--- NOTE | 2019-10-04 12:22 | NURSING ---
SKOPE WITH PT'S AND LET HIM KNOW THAT PT IS D/C AND READY FOR PICK-UP AFTER SHE EATS LUNCH AND HE SAID TO WOULD BE AT LEAST 30 MIN
[2019-10-04 12:58] VITALS: BP 120/81; PULSE 88; RESP 18; TEMP 37.2; O2SAT 95
--- NOTE | 2019-10-06 15:59 | CASEMGMT ---
SIMON CM DC PHONE CALL DC DATE: 09.04.19 DC DISPOSITION: Home DC DIAGNOSIS: COVID-19 positive LACE/STRATA: 05/06 F/U APPTS MADE PRIOR TO DC: no Attempted call to patient @ home. No answer, and voicemail stated the VM system had not been set up yet. Curt LYNCHN RN ACM
--- NOTE | 2019-10-06 16:05 | CASEMGMT ---
SIMON CM DC PHONE CALL DC DATE: 10.04.19 DC DISPOSITION: Home DC DIAGNOSIS: COVID-19 positive LACE/STRATA: 05/06 F/U APPTS MADE PRIOR TO DC: no Attempted call to patient @ home. No answer, and voicemail stated the VM system had not been set up yet. Curt LYNCHN RN ACM
== END 2019-10-04 12:58 | disposition home or self-care (01) | DRG 177 ==
LOC: ED 11:30 → MS2 14:03
PROVIDERS: Internal Medicine Critical Care Medicine; Emergency Provider Emergency Medicine; PCP Family Medicine
DX: U07.1 COVID-19 (principal); J13 Pneumonia due to Streptococcus pneumoniae; I13.0 Hypertensive heart and chronic kidney disease with heart failure and stage 1 through stage 4 chronic kidney disease, or unspecified chronic kidney disease; J96.11 Chronic respiratory failure with hypoxia; D61.818 Other pancytopenia; J47.1 Bronchiectasis with (acute) exacerbation; K51.90 Ulcerative colitis, unspecified, without complications; J47.0 Bronchiectasis with acute lower respiratory infection; I50.9 Heart failure, unspecified; I27.20 Pulmonary hypertension, unspecified; N18.1 Chronic kidney disease, stage 1; E66.01 Morbid (severe) obesity due to excess calories; G47.33 Obstructive sleep apnea (adult) (pediatric); K21.9 Gastro-esophageal reflux disease without esophagitis; E78.5 Hyperlipidemia, unspecified; M19.90 Unspecified osteoarthritis, unspecified site; F41.9 Anxiety disorder, unspecified; G43.909 Migraine, unspecified, not intractable, without status migrainosus; G89.29 Other chronic pain; J45.20 Mild intermittent asthma, uncomplicated; F32.9 Major depressive disorder, single episode, unspecified; Z66 Do not resuscitate; Z87.891 Personal history of nicotine dependence
CPT/HCPCS: 36415; 71045; 80048; 80053; 81001; 83605; 85025; 85379; 85610; 85730; 87040; 87070; 87077; 87086; 87088; 87205; 87449; 87880; 93005; 94667; 94668; 96374; 96375; 99285; A4216; J0696; J2405; J3030

== ENCOUNTER 2019-10-06 08:30 | Inpatient (IN) | payer OTHER, MEDICARE, SELFPAY ==
[2019-10-01 13:39] VITALS: BMI 38.5
[2019-10-06] VITALS (8 sets, daily range): BP systolic 100–133; BP diastolic 66–80; PULSE 97–126; RESP 18–30; TEMP 36.9–39.1; O2SAT 94–97; BMI 41.1; BMI 39.4; BMI 39.3
--- NOTE | 2019-10-06 08:40 | CT_ITS ---
STUDY: CTA CHEST REASON FOR EXAM: Female, 58 years old. DYSPNEA.+ COVID, INCREASED SHORT OF BREATH,COUGH RADIATION DOSAGE (If Supplied By Facility): CTDIvol = ( 13.85 ) mGy, DLP = ( 493.15 ) mGycm TECHNIQUE: The examination was performed with the intravenous administration of 100CC ISOVUE 370. Post-processing of the angiographic images was performed, with multiplanar reformation and 3D reconstruction. Individualized dose optimization techniques were used for this CT. COMPARISON: None. FINDINGS: Normal enhancement of the main pulmonary artery and right and left pulmonary arteries. Normal enhancement of the bilateral peripheral pulmonary arteries. There is no demonstrated pulmonary embolism. Normal thoracic aorta and visualized great vessels. There is no demonstrated aortic dissection. Normal heart and pericardium. There are visualized mediastinal lymph nodes, which are within normal size limits, and with normal morphology. Normal hilar regions. Normal visualized trachea and bronchi. The lungs are well expanded. Patchy infiltrates are seen in both lungs. This is worse in the right upper lobe as well as in the left lower. There is a preferential distribution towards the peripheral aspects of lungs. Findings are suggestive of a Covid pneumonic infiltrates. Normal pleura. Normal chest wall structures. Normal osseous structures. Splenomegaly. Status post cholecystectomy. CT/CTA Chest W/WO Contrast IMPRESSION: Patchy bilateral infiltrates as described. There is a preferential distribution towards the peripheral aspects of the lungs. Covid pneumonia should be ruled out. Electronically Signed: Kamran Velazquez, at 9:58 EDT , Service support ,
[2019-10-06 08:55] LABS: Absolute Lymphocyte Count 0.41 X10^3/uL (0.83-4.51); Absolute Neutrophil Count 1.6 X10^3/uL (2.0-7.7); Basophil# 0.01 X10^3/uL; Basophil% 0.4 % (0-1); Hematocrit 35.5 % (37-47); Lymphocyte # 0.41 X10^3/ul (4.0); Lymphocyte % 18.2 % (19-41); Mean Corpuscular Hgb 31.5 pg (27.0-32.0); Mean Corpuscular Volume 101.7 fL (81-99); Mean Platelet Vol. 10.1 fl (6.2-12.0); Monocyte# 0.23 X10^3/uL; Monocyte% 10.2 % (0-10); NRBC Flagged by Analyzer 0.9 % (0-5); Neutrophil # 1.56 X10^3/uL (2.7-7.7); Neutrophil % 69.4 % (47-70); POSITIVE DIFFERENTIAL YES; Platelet Count 126 K/mm3 (150-450); RBC Distribution Width CV 15.7 % (11.6-14.6); RBC Distribution Width SD 58.4 fl (35.1-43.9); Red Blood Count 3.49 M/mm3 (4.2-5.4); White Blood Count 2.3 K/mm3 (4.4-11.0)
[2019-10-06 08:57] LABS: Differential Indicated SCAN CRITERIA MET
[2019-10-06] MEDS: LORazepam 2 MG/ML Syringe 1 MG IV (08:58)
[2019-10-06] MEDS: Morphine 4 MG/ML Syringe IV (08:58)
[2019-10-06] MEDS: Ondansetron 4 MG/2 ML Vial IV (08:58)
--- NOTE | 2019-10-06 09:02 | ED.DCSUM_ITS ---
History of Present Illness Chief Complaint: Shortness of Breath Informant: Patient Onset: Days Context: Gradual Onset Timing: Continuous Current Severity: Moderate Maximum Severity: Severe Narrative: The patient is a 58-year-old female with medical history significant for chronic lung disease who is on 2 L of oxygen at baseline, patient recently tested positive for COVID-19 and was hospitalized, and was discharged 2 days ago. She states that since discharge, her symptoms have actually worsened. She has been increasingly dyspneic. She is had persistent fevers. She has had more weakness. She states she has a hard time getting around and feels much more short of breath. She states that she did finish her antibiotic therapy. She does admit to some pleuritic chest pain also. She states that she has had diarrhea, but this is not new for her. She is had mild nausea without vomiting. Prior similar symptoms: Yes Recent Illness/Hospitalization: Yes Past Medical History - Allergies and Home Meds Allergies/Adverse Reactions: Allergies Penicillins Allergy (Verified 10/06/19 08:31) Unknown DUST Allergy (Uncoded 10/06/19 08:31) Unknown SEASONAL Allergy (Uncoded 10/06/19 08:31) Unknown Primary Care Physician: Karl Moran MD [Primary Care Provider] - Prior records reviewed: Yes Surgical History: adenoidectomy, appendectomy, cholecystectomy, herniorrhaphy, hysterectomy, - Smoking Status: Former smoker - Family History Maternal Family History: Family History (Last Reviewed 10/01/19 @ 13:[address] Blayne Santana DO) Father Colon cancer Mother Cancer Family History: Reports: - Paternal Family History: Family History (Last Reviewed 10/01/19 @ 13:[address] Blayne Santana DO) Father Colon cancer Mother Cancer Family History: Reports: Hypertension Review of Systems General: Reports: Chills, Fever, Malaise. Denies: Sweats Eyes: Denies: Visual changes - bilaterally, Diplopia ENT: Denies: Rhinorrhea, Sore throat Cardiovascular: Denies: Chest pain, Palpitations Respiratory: Reports: Dyspnea, Cough. Denies: Dyspnea on exertion Gastrointestinal: Reports: Nausea, Diarrhea. Denies: Abdominal pain, Vomiting, Melena, Hematochezia Genitourinary: Denies: Dysuria, Hematuria, Frequency Musculoskeletal: Reports: Myalgias. Denies: Back pain, Extremity Pain Skin: Denies: Rash, Wounds Neurological: Denies: Headache, Weakness, Numbness Physical Exam Vital Signs/Narrative: Vital Signs Temp Pulse Resp BP Pulse Ox 10/06/19 08:48 126 H 30 H 95 10/06/19 08:31 102.3 F H 124 H 26 H 119/80 95 Inital Vital Signs reviewed: Yes General: Well nourished, Well developed, No Acute Distress Head: Normocephalic, Atraumatic Eyes: Perrl, EOMI ENT: Moist mucous membranes, No rhinorrhea Neck: Supple, Nontender Cardiovascular: No murmurs, Tachycardia Respiratory: No distress, Chest nontender, Decreased Air Movement Abdomen: Soft, Nontender, Nondistended, Normal bowel sounds Back: Nontender, Normal Inspection Extremities: Nontender, No edema Skin: Normal color, No rash Neurological: Alert, Oriented x3, Cranial nerves II-XII grossly intact, Normal Strength, Normal Sensation Psychological: Normal affect, Normal Mood Diagnostic/Tx/Re-eval Clinical Impression(s) from Imaging Studies Chest CTA 10/06/19 08:40 IMPRESSION: Patchy bilateral infiltrates as described. There is a preferential distribution towards the peripheral aspects of the lungs. Covid pneumonia should be ruled out. Electronically Signed: Kamran Velazquez, at 9:58 EDT , Service support , Abnormal Lab Results 10/06/19 10/06/19 10/06/19 08:35 08:35 08:35 WBC 2.3 L RBC 3.49 L Hgb 11.0 L Hct 35.5 L MCV 101.7 H MCH 31.5 MCHC 31.0 L D RDW Std Deviation 58.4 H RDW Coeff of Jaun 15.7 H Plt Count 126 L MPV 10.1 Immature Gran % (Auto) 1.800 H Neut % (Auto) 69.4 Lymph % (Auto) 18.2 L [place] % (Auto) 10.2 H Eos % (Auto) 0.0 Baso % (Auto) 0.4 Absolute Neuts (auto) 1.6 L Absolute Lymphs (auto) 0.41 L Nucleated RBC % 0.9 Differential Comment SCANNED Sodium 135 L Potassium 3.5 Chloride 100 Carbon Dioxide 27.0 Anion Gap 8 BUN 13 Creatinine 1.31 H Estim Creat Clear Calc 47.80 Est GFR (MDRD) Af Amer 54 L Est GFR (MDRD) Non-Af 44 L BUN/Creatinine Ratio 9.9 L Glucose 114 H Lactic Acid 1.0 Calcium 8.5 Total Bilirubin 0.90 AST 33 ALT 24 Alkaline Phosphatase 75 Troponin I < 0.015 B-Natriuretic Peptide Total Protein 6.4 Albumin 2.9 L Globulin 3.5 Albumin/Globulin Ratio 0.8 L 10/06/19 08:35 WBC RBC Hgb Hct MCV MCH MCHC RDW Std Deviation RDW Coeff of Jaun Plt Count MPV Immature Gran % (Auto) Neut % (Auto) Lymph % (Auto) [place] % (Auto) Eos % (Auto) Baso % (Auto) Absolute Neuts (auto) Absolute Lymphs (auto) Nucleated RBC % Differential Comment Sodium Potassium Chloride Carbon Dioxide Anion Gap BUN Creatinine Estim Creat Clear Calc Est GFR (MDRD) Af Amer Est GFR (MDRD) Non-Af BUN/Creatinine Ratio Glucose Lactic Acid Calcium Total Bilirubin AST ALT Alkaline Phosphatase Troponin I B-Natriuretic Peptide 35.2 Total Protein Albumin Globulin Albumin/Globulin Ratio - Rhythm Strip Rhythm Strip: Sinus Tach Rate: 115 - EKG Initial EKG Interpretation: Sinus Tachycardia, RBBB, LAFB Prior: Unchanged - Medical Decision Making The patient presents to the emergency department with known COVID-19, with increasing dyspnea and generalized malaise. The patient is febrile, tachycardic, tachypneic, and has had increase her oxygen requirement. Metabolic work-up was pursued. She is leukopenic, fitting with her diagnosis of COVID. Lactic acid was negative. She has mild renal insufficiency. The patient was given fluids. I obtained a CTA of her chest with her increasing dyspnea and oxygen requirement. There was no evidence of acute pulmonary embolus, but she does have rather significant infiltrative process that seems to have worsened. As the patient is still tachycardic and spiking fevers, along with her increased oxygen requirement, I do feel that she would be appropriate for admission. The patient was discussed with the hospitalist. Impression 1. Acute on chronic respiratory failure 2. COVID-19 pneumonia ED Disposition - Plan for ED Patient: Referrals: Karl Moran MD [Primary Care Provider] -
[2019-10-06] MEDS: Acetaminophen 500 MG Tablet 1000 MG PO (09:06)
[2019-10-06 09:16] LABS: ALB/GLOB Ratio 0.8 RATIO (0.9-2.4); AST(SGOT) 33 U/L (15-37); Alanine Aminotransfer ALT/SGPT 24 U/L (13-56); Albumin, Serum 2.9 g/dL (3.2-5.0); Alkaline Phosphatase 75 U/L (45-117); Anion Gap 8 (5-15); BUN 13 mg/dL (7-18); BUN/Creat Ratio 9.9 RATIO (10-20); Calcium,Total 8.5 mg/dL (8.5-10.1); Chloride 100 mmol/L (98-107); Creatinine, Serum 1.31 mg/dL (0.55-1.02); EST Glomerular Filtration Rate 44 mL/min (>60); Est Glom Filt Rate - Afr Amer 54 mL/min (>60); Globulin 3.5 g/dL (2.2-4.2); Glucose 114 mg/dL (74-106); Potassium 3.5 mmol/L (3.5-5.1); Protein, Total 6.4 g/dL (6.4-8.2); Sodium Level 135 mmol/L (136-145)
[2019-10-06 09:21] LABS: BNP,B-Type NATRIURETIC PEPTIDE 35.2 pg/mL (0-100)
[2019-10-06 09:35] LABS: Differential Comment SCANNED
--- NOTE | 2019-10-06 10:59 | PCM.HP.STD ---
Problem List (1) Sepsis Status: Acute (2) Respiratory tract infection due to COVID-19 virus Status: Acute (3) Pancytopenia Status: Chronic (4) Chronic renal insufficiency, stage I Status: Chronic (5) Migraine Status: Suspected (6) Abdominal pain Status: Chronic (7) Endocarditis Status: Resolved (8) Gastritis Status: Chronic (9) Shortness of breath Status: Acute (10) Restrictive lung disease Status: Chronic (11) Colitis Status: Chronic (12) Osteoarthritis Status: Chronic (13) Chronic renal failure Status: Chronic (14) Depression Status: Chronic (15) GENNARO (obstructive sleep apnea) Status: Chronic (16) Pneumonia Status: Acute (17) Bronchitis Status: Acute (18) Asthma Status: Chronic Qualifiers: Asthma severity: mild Asthma persistence: intermittent Asthma complication type: uncomplicated Qualified Code(s): J45.20 - Mild intermittent asthma, uncomplicated (19) Gastroesophageal reflux disease Status: Chronic (20) Hypertension Status: Chronic Qualifiers: Hypertension type: essential hypertension Qualified Code(s): I10 - Essential (primary) hypertension (21) Colitis with rectal bleeding Status: Chronic (22) Respiratory failure with hypoxia Status: Chronic Qualifiers: Chronicity: acute Qualified Code(s): J96.01 - Acute respiratory failure with hypoxia (23) Respiratory insufficiency Status: Chronic (24) Anemia Status: Chronic Qualifiers: Anemia type: unspecified type Qualified Code(s): D64.9 - Anemia, unspecified (25) Abnormal liver CT Status: Chronic Comment: hemangioma (26) Leukopenia Status: Chronic (27) Thrombocytopenia Status: Chronic (28) Idiopathic right ventricular dilation Status: Chronic (29) Bronchiectasis Status: Chronic Qualifiers: Bronchiectasis type: uncomplicated Qualified Code(s): J47.9 - Bronchiectasis, uncomplicated (30) HLD (hyperlipidemia) Status: Chronic (31) Morbid obesity Status: Chronic (32) COPD (chronic obstructive pulmonary disease) Status: Suspected Qualifiers: COPD type: unspecified COPD Qualified Code(s): J44.9 - Chronic obstructive pulmonary disease, unspecified (33) Anxiety Status: Chronic (34) History of tubal ligation Status: Resolved (35) History of umbilical hernia Status: Resolved (36) History of appendectomy Status: Resolved (37) History of hysterectomy Status: Resolved (38) History of cholecystectomy Status: Resolved (39) History of diarrhea Status: Resolved (40) Arthritis Status: Chronic (41) Hypertension Status: Chronic History of Present Illness Date of Admission: 10/06/19 Chief Complaint: Progressive worsening shortness of breath and hypoxia The patient is a 58 year old F with multiple comorbidities as listed above including obstructive sleep apnea and asthma, last admission 10/01/2019- 10/04/2019 came back to ER with progressive worsening of shortness of breath and hypoxia. Patient has pulse oximetry at home and she has not able to keep her pulse ox up drops to 70s. Patient also febrile, tachycardic and tachypneic in ED. In ER, temperature 102.3 ?F, heart rate 124/min, respiratory rate 26 to 30/min and pulse ox 95% on 2 L of oxygen. [] In ED, she is leukopenic, normocytic 2.3 thousand, H&H 11/35.5, platelet count 126 similar to labs during previous admission. CTPA was done in ER and was independently reviewed. It is negative for PE but has bilateral patchy infiltrate in the peripheral aspect suggestive of COVID pneumonia. During previous admission, she was tested positive for COVID-19. Patient was started on steroids and discharged on Levaquin and prednisone. Urinary antigens are negative on 09/30, blood cultures are negative for 5 days. Rapid group A strep treated throat was negative. Sputum culture was positive for presumptive Kimberly albicans and mixed orin. Past Medical History Past Medical History (Chronic Problems): Chronic Problems (Last Updated 10/04/19 @ 10:[address] Blayne Snatana, DO) Pancytopenia (Chronic) Chronic renal insufficiency, stage I (Chronic) Abdominal pain (Chronic) Gastritis (Chronic) Restrictive lung disease (Chronic) Colitis (Chronic) Osteoarthritis (Chronic) Chronic renal failure (Chronic) Depression (Chronic) GENNARO (obstructive sleep apnea) (Chronic) Asthma (Chronic) Gastroesophageal reflux disease (Chronic) Hypertension (Chronic) Colitis with rectal bleeding (Chronic) Respiratory failure with hypoxia (Chronic) Respiratory insufficiency (Chronic) Anemia (Chronic) Abnormal liver CT (Chronic) hemangioma Leukopenia (Chronic) Thrombocytopenia (Chronic) Idiopathic right ventricular dilation (Chronic) Bronchiectasis (Chronic) HLD (hyperlipidemia) (Chronic) Morbid obesity (Chronic) Anxiety (Chronic) Arthritis (Chronic) Hypertension (Chronic) Medical History: Medical History (Last Updated 10/04/19 @ 10:[address] Blayne Santana, DO) Endocarditis (Resolved) I38 Gastritis (Chronic) K29.70 Shortness of breath (Acute) R06.02 Restrictive lung disease (Chronic) J98.4 Colitis (Chronic) K52.9 Osteoarthritis (Chronic) M19.90 Chronic renal failure (Chronic) N18.9 Depression (Chronic) F32.9 GNENARO (obstructive sleep apnea) (Chronic) G47.33 Pneumonia (Acute) J18.9 Bronchitis (Acute) J40 Asthma (Chronic) J45.909 Anxiety (Chronic) F41.9 History of umbilical hernia (Resolved) Z87.19 History of diarrhea (Resolved) Z87.898 Arthritis (Chronic) M19.90 Hypertension (Chronic) I10 Allergies Penicillins Allergy (Verified 10/06/19 08:31) Unknown DUST Allergy (Uncoded 10/06/19 08:31) Unknown SEASONAL Allergy (Uncoded 10/06/19 08:31) Unknown Home Medications: Ambulatory Orders Medication Instructions Recorded Albuterol Inhaler [Ventolin Hfa] 1 - 2 puff INHALATION Q4H PRN PRN 12/09/18 Pantoprazole Sodium [Protonix] 40 mg PO DAILY 12/09/18 Rosuvastatin Calcium 40 mg PO QHS 12/09/18 Acetaminophen [Tylenol Tablet] 650 mg PO Q6H PRN PRN tab 12/13/18 Temazepam [Restoril] 30 mg PO QHS PRN PRN #4 cap 01/11/19 PEP device 0 .ROUTE .MEDSUPPLY #1 ea 05/12/19 Furosemide 40 mg PO DAILY 10/01/19 Paxil 20 mg PO QHS 10/01/19 Potassium Chloride [K-Dur] 60 meq PO BID 10/01/19 Aspirin 81 mg PO DAILY #1 tab.chew 10/04/19 Dicyclomine HCl [Bentyl] 10 mg PO TIDAC #30 cap 10/04/19 Guaifenesin [Mucinex] 1,200 mg PO BID #20 tab 10/04/19 Ibuprofen [Motrin] 600 mg PO Q6H PRN PRN tab 10/04/19 Ondansetron HCl [Zofran] 4 mg PO DAILY PRN PRN #0 10/04/19 Prednisone 1 tab PO DAILY #30 tab.ds.pk 10/04/19 Prochlorperazine Maleate 10 mg PO Q8H PRN #20 tab 10/04/19 [Compazine] levoFLOXacin tablet [Levaquin 750 mg PO DAILY #5 tab 10/04/19 tablet] Surgical History: Surgical History (Last Reviewed 10/01/19 @ 13:[address] Blayne Santana DO) History of tubal ligation (Resolved) Z98.51 History of appendectomy (Resolved) Z90.49 History of hysterectomy (Resolved) Z90.710 History of cholecystectomy (Resolved) Z90.49 Surgical History: adenoidectomy, appendectomy, cholecystectomy, herniorrhaphy, hysterectomy, - Psychiatric History: No pertinent psych hx [employer] History: uterine fibroids Smoking Status: Former smoker Alcohol: None - *Family History Maternal Family History: Family History (Last Reviewed 10/01/19 @ 13:[address] Blayne Santana DO) Father Colon cancer Mother Cancer History Items: - Paternal Family History: Family History (Last Reviewed 10/01/19 @ 13:[address] Blayne Santana DO) Father Colon cancer Mother Cancer History Items: Hypertension Review of Systems Constitutional: Reports: Chills, Fever HEENT: Denies: Head Aches, Sinus Congestion, Sinus Drainage Cardiovascular: Denies: Chest Pain, Palpitations Respiratory: Reports: Cough, Shortness of Breath, Shortness of breath at rest, Shortness of breath upon exertion, Sputum production - Mucus production., Wheezing Gastrointestinal: Denies: Abdominal Pain, Nausea, Vomiting Genitourinary: Denies: Dysuria Musculoskeletal: Reports: Joint Pain - Bilateral TKR, Joint stiffness. Denies: Joint Tenderness Skin: Denies: Rash, Wounds Neurological: Reports: Balance problems. Denies: Focal weakness, Numbness, Tingling Psychiatric: Reports: Anxiety, Depression. Denies: Homicidal Ideations, Suicidal Ideations Hematologic/ Lymphatic: Denies: Easy Bruising, Easy Bleeding VTE Information - Inpt Only VTE Present on Admission: No VTE Mechan Device Prophylaxis: SCD's VTE Pharm Prophylaxis ordered?: Yes - Physical Exam Vitals/I&O's: Vital Signs Temp Pulse Resp BP Pulse Ox 102.3 F H 119 H 30 H 124/76 H 95 10/06/19 09:17 10/06/19 09:17 10/06/19 09:17 10/06/19 09:17 10/06/19 09:17 Oxygen Flow Rate (L/min) 3 Oxygen Delivery Method Nasal Cannula Weight: 270 lb 11.642 oz Body Mass Index (BMI) 41.1 General: Alert, Oriented x3, Cooperative HEENT: Atraumatic, PERRLA, EOMI, Normocephalic Oral: Dry Mucosa Neck: Supple, No JVD, Negative Carotid Bruits Lungs: Clear to auscultation, No rhonchi, No wheeze, No rales, Diminished, Short of Breath, Tachypneic, - Cardiovascular: Regular rate, No murmurs Abdomen: Bowel Sounds Present, Soft, Non Tender, Non-Distended Extremities: Capillary Refill Less than 3 Seconds, Edema Skin: No rashes, No breakdown Musculoskeletal: No Tenderness to Palpation of Joints or Extremities, Arthritic Changes Lymphatic: No Cervical, Supraclavicular, or Inguinal Adenopathy Neurological: Cranial nerves II-XII grossly intact, Deep Tendon Reflexes 2+/4 and Symmetrical, Neuro grossly intact Psych/Mental Status: Normal Affect, Appropriate Laboratory Results 10/06/19 08:35: WBC 2.3 L, RBC 3.49 L, Hgb 11.0 L, Hct 35.5 L, MCV 101.7 H, MCH 31.5, MCHC 31.0 L D, RDW Std Deviation 58.4 H, RDW Coeff of Jaun 15.7 H, Plt Count 126 L, MPV 10.1, Immature Gran % (Auto) 1.800 H, Neut % (Auto) 69.4, Lymph % (Auto) 18.2 L, [place] % (Auto) 10.2 H, Eos % (Auto) 0.0, Baso % (Auto) 0.4, Absolute Neuts (auto) 1.6 L, Absolute Lymphs (auto) 0.41 L, Nucleated RBC % 0.9, Differential Comment SCANNED 10/06/19 08:35: Sodium 135 L, Potassium 3.5, Chloride 100, Carbon Dioxide 27.0, Anion Gap 8, BUN 13, Creatinine 1.31 H, Estim Creat Clear Calc 47.80, Est GFR (MDRD) Af Amer 54 L, Est GFR (MDRD) Non-Af 44 L, BUN/Creatinine Ratio 9.9 L, Glucose 114 H, Calcium 8.5, Total Bilirubin 0.90, AST 33, ALT 24, Alkaline Phosphatase 75, Troponin I < 0.015, Total Protein 6.4, Albumin 2.9 L, Globulin 3.5, Albumin/Globulin Ratio 0.8 L 10/06/19 08:35: Lactic Acid 1.0 10/06/19 08:35: B-Natriuretic Peptide 35.2 Assessment/Plan All Active Problems (Last Updated 10/04/19 @ 10:[address] Blayne Santana, DO) Sepsis (Acute) Respiratory tract infection due to COVID-19 virus (Acute) Endocarditis (Resolved) Shortness of breath (Acute) Pneumonia (Acute) Bronchitis (Acute) History of tubal ligation (Resolved) History of umbilical hernia (Resolved) History of appendectomy (Resolved) History of hysterectomy (Resolved) History of cholecystectomy (Resolved) History of diarrhea (Resolved) Sepsis (Resolved) The patient is a 58 year old F with multiple comorbidities as listed above including obstructive sleep apnea and asthma, last admission 10/01/2019- 10/04/2019 came back to ER with progressive worsening of shortness of breath and hypoxia. Patient has pulse oximetry at home and she has not able to keep her pulse ox up drops to 70s. Patient also febrile, tachycardic and tachypneic in ED. In ER, temperature 102.3 ?F, heart rate 124/min, respiratory rate 26 to 30/min and pulse ox 95% on 2 L of oxygen. [] In ED, she is leukopenic, normocytic 2.3 thousand, H&H 11/35.5, platelet count 126 similar to labs during previous admission. CTPA was done in ER and was independently reviewed. It is negative for PE but has bilateral patchy infiltrate in the peripheral aspect suggestive of COVID pneumonia. During previous admission, she was tested positive for COVID-19. Patient was started on steroids and discharged on Levaquin and prednisone. 1. Sepsis with acute respiratory insufficiency secondary to COVID 19 pneumonia present on admission: Patient is being admitted on the floor. She recently had urinary antigens are negative on 09/30, blood cultures are negative for 5 days. Rapid group A strep treated throat was negative. Sputum culture was positive for presumptive Kimberly albicans and mixed orin. Started on IV Rocephin and Zithromax. Blood cultures x2 sent from ER. MRSA nasal screen and sputum culture ordered. Lactic acid normal. 2. COVID-19 pneumonia: CTPA was done in ER and was independently reviewed. It is negative for PE but has bilateral patchy infiltrate in the peripheral aspect suggestive of COVID pneumonia. LDH and pro calcitonin ordered. 3. Bronchiectasis, asthma, pulmonary hypertension: Patient was discharged on prednisone 40 mg daily and is continued with taper schedule. Continue bronchodilator, incentive spirometry, chest physiotherapy/PEP. 4 pancytopenia: Patient has pancytopenia, WBC count 2.3 thousand H&H and platelet count 1 26,000. This is similar to previous admission. Her white count has improved as it was 1.4 on 10/02/2019. 5. Anxiety and depression: Patient on Paxil at home. She is also on Restoril at night. Started on lorazepam 0.5 mg every 8 hourly as needed for severe anxiety attack. 6. Migraine: Patient patient is on as needed acetaminophen and ibuprofen. 7. VTE prophylaxis: Moderate risk. On Lovenox 40 mg q. 12 hourly. Living will/advanced directive/end of life care: Patient does have living will or advanced directive. After discussion of procedures involved with full code, DNR CC arrest and DNR CC, the patient opted for DNR-CC Arrest with no intubation Patient does not want artificial life support including intubation, tube feed, ventilator and/chest compression, central venous catheter, vasopressor and DC shock if needed Total time spent in [id number] encounter in discussion of advanced directive 16 minutes. Clinical Impression(s) from Imaging Studies Chest CTA 10/06/19 08:40 IMPRESSION: Patchy bilateral infiltrates as described. There is a preferential distribution towards the peripheral aspects of the lungs. Covid pneumonia should be ruled out. Inpatient E&M: 08755 Init Hosp L3 Procedures: 97654 Advncd Care Plan 30 Min
[2019-10-06 15:04] LABS: Magnesium 1.6 mg/dL (1.6-2.6)
[2019-10-06 15:12] LABS: LDH 377 U/L (84-246)
[2019-10-06 15:18] LABS: Procalcitonin 0.17 ng/mL (0.00-0.09)
[2019-10-06] MEDS: 0.9% Normal Saline 1,000 ML 75 ML IV (15:20)
[2019-10-06] MEDS: LORazepam 0.5 MG Tablet PO ×2 (15:21→23:26)
[2019-10-06] MEDS: Dicyclomine 10 MG Capsule PO (15:21)
[2019-10-06] MEDS: guaiFENesin 1,200 MG Tablet 1200 MG PO ×2 (15:21→21:50)
[2019-10-06] MEDS: Enoxaparin 40 MG/0.4 ML Syringe SC ×2 (15:21→21:50)
[2019-10-06] MEDS: 0.9% Saline Lock 10 ML Syringe IV ×2 (15:22→22:06)
[2019-10-06 17:52] LABS: M R Staph aureus DNA By PCR Negative (Negative); Probe Check PASS; Specimen Processing Control PASS
--- NOTE | 2019-10-06 19:30 | NURSING ---
lab notified that pt needs 2nd troponin drawn
[2019-10-06] MEDS: Paroxetine 20 MG Tablet PO (21:50)
[2019-10-06] MEDS: Atorvastatin Calcium 80 MG Tablet PO (21:50)
[2019-10-06] MEDS: proMETHazine 25 MG/ML Syringe 12.5 MG IV (22:06)
[2019-10-06] MEDS: oxyCODONE 5 MG Tablet PO (22:15)
--- NOTE | 2019-10-06 22:55 | NURSING ---
pt refusing rest of ivf. pt did drink pitcher of water. ivf stopped at pt request. pt took off attends and fiorella doesnt want either wants to go in bathroom.
[2019-10-06] MEDS: Temazepam 15 MG Capsule 30 MG PO (23:26)
[2019-10-07] VITALS (8 sets, daily range): BP systolic 106–119; BP diastolic 62–78; PULSE 97–111; RESP 18–20; TEMP 37.4–38.5; O2SAT 95–96
[2019-10-07] MEDS: Acetaminophen 325 MG Tablet 650 MG PO (01:27)
[2019-10-07] MEDS: Albuterol Sulfate 8 gm Inhaler 2 PUFF INHALATION (01:49)
[2019-10-07 07:38] LABS: Absolute Lymphocyte Count 0.26 X10^3/uL (0.83-4.51); Absolute Neutrophil Count 1.1 X10^3/uL (2.0-7.7); Hematocrit 32.2 % (37-47); Hemoglobin 9.7 g/dL (12.0-15.0); Lymphocyte # 0.26 X10^3/ul (4.0); Lymphocyte % 17.2 % (19-41); Mean Corp Hgb Conc 30.1 g/dL (32-36); Mean Corpuscular Hgb 31.1 pg (27.0-32.0); Mean Corpuscular Volume 103.2 fL (81-99); Mean Platelet Vol. 10.3 fl (6.2-12.0); Monocyte# 0.15 X10^3/uL; Monocyte% 9.9 % (0-10); NRBC Flagged by Analyzer 0 % (0-5); Neutrophil # 1.07 X10^3/uL (2.7-7.7); Neutrophil % 70.9 % (47-70); POSITIVE DIFFERENTIAL YES; POSITIVE MORPHOLOGY YES; Platelet Count 104 K/mm3 (150-450); RBC Distribution Width CV 15.7 % (11.6-14.6); RBC Distribution Width SD 59.3 fl (35.1-43.9); Red Blood Count 3.12 M/mm3 (4.2-5.4); White Blood Count 1.5 K/mm3 (4.4-11.0)
[2019-10-07 08:06] LABS: Differential Indicated SCAN CRITERIA MET
[2019-10-07 08:10] LABS: ALB/GLOB Ratio 0.7 RATIO (0.9-2.4); AST(SGOT) 32 U/L (15-37); Alanine Aminotransfer ALT/SGPT 20 U/L (13-56); Albumin, Serum 2.2 g/dL (3.2-5.0); Alkaline Phosphatase 62 U/L (45-117); Anion Gap 8 (5-15); BUN 11 mg/dL (7-18); BUN/Creat Ratio 9.8 RATIO (10-20); Calcium,Total 7.9 mg/dL (8.5-10.1); Chloride 106 mmol/L (98-107); Creatinine, Serum 1.12 mg/dL (0.55-1.02); EST Glomerular Filtration Rate 53 mL/min (>60); Est Glom Filt Rate - Afr Amer 64 mL/min (>60); Globulin 3.3 g/dL (2.2-4.2); Glucose 84 mg/dL (74-106); Magnesium 1.8 mg/dL (1.6-2.6); Potassium 3.4 mmol/L (3.5-5.1); Protein, Total 5.5 g/dL (6.4-8.2); Sodium Level 134 mmol/L (136-145)
[2019-10-07] MEDS: 0.9% Saline Lock 10 ML Syringe IV ×4 (08:33→21:42)
[2019-10-07] MEDS: Dicyclomine 10 MG Capsule PO ×3 (08:44→15:50)
[2019-10-07] MEDS: oxyCODONE 5 MG Tablet PO ×3 (08:44→21:53)
[2019-10-07 08:46] LABS: Differential Comment SCANNED
[2019-10-07] MEDS: Aspirin 81 MG TAB.CHEW PO (08:46)
[2019-10-07] MEDS: LORazepam 0.5 MG Tablet PO ×2 (08:46→21:48)
[2019-10-07] MEDS: predniSONE 10 MG Tablet 30 MG PO (08:50)
[2019-10-07] MEDS: proMETHazine 25 MG/ML Syringe 12.5 MG IV ×2 (08:51→16:55)
[2019-10-07] MEDS: Pantoprazole Sodium 40 MG Tablet PO (08:59)
[2019-10-07] MEDS: Furosemide 40 MG Tablet PO (08:59)
[2019-10-07] MEDS: guaiFENesin 1,200 MG Tablet 1200 MG PO ×2 (08:59→21:46)
[2019-10-07] MEDS: Enoxaparin 40 MG/0.4 ML Syringe SC (09:20)
--- NOTE | 2019-10-07 11:23 | CASEMGMT ---
SIMON CM Readmission Note Previous Admission: 09/30-10/04/2019 Diagnosis: COVID Test Positive (outside testing) DC Disposition: Home on dc. COVID-19 isolation teaching given by nursing. Current Admission Presentation: Shortness of breath, COVID-19 positive testing previous admission. Pulse ox 70's, tachycardic, tachypneic. Temp 102.3. Pt is on 2L NC @ baseline @ home. 3L NC currently. Attempted x 2 to call pt in room, no answer currently. Call to at home. States pt was able to self isolate in bedroom, however since he also was positive and recovered, he was able to care for her. No difficulty assisting with getting groceries, meals and prescriptions. Pt was compliant with medications and oxygen use @ home. No concerns re: dc. plans to have her return home on discharge. Patient DC goals: home DC PLAN: anticipate home on dc. Curt WALTON RN AC
[2019-10-07 12:48] LABS: Ferritin 432 ng/mL (8-252)
--- NOTE | 2019-10-07 15:24 | NURSING ---
Note taken from [employer] rounding documentation by MEGHA Shah: Patient kept pulling bathroom light. I went in to check on patient and she was sitting on the toilet. Patient was yelling towards me saying she wants a singh cath. I let the patient know the doctor is rounding and she could ask them but we don't give them out to people just because they are peeing so much. She started to hit her hand on the wall. Patients behavior has gotten to be worse. MEGHA Shah also reports that when lab was present patient asked Alyssa why everyone here can't seem to be her friend. Alyssa notified patient that we are staff here at the hospital and are trying our best to help her get better. Patient continues to call her friend sarcastically. Patient has had multiple behavioral issues, and at times verbally abusive toward staff this stay but also previous stay when she was discharged 10/04/19. This RN called Samanta, social work and notified her of behavior. Patient resting with eyes closed at this time and Samanta states she will not disturb pt. at this time but will come see patient tomorrow. Per overnight cashier patient was given a purewick and brief per her complaint of urinary incontinence and took both off and threw them on the floor during the night. Patient has been incontinent at times, even squatting at bedside and urinating on floor with staff in room.
--- NOTE | 2019-10-07 15:34 | CASEMGMT ---
Social Work Note SW updated that pt has had some behavior issues while being at [facility], this visit and last visit. RN states pt is now resting with lights off. SW informed RN that this worker will check in with pt tomorrow. RN states understanding, states that is fine. 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
[2019-10-07] MEDS: busPIRone 5 MG Tablet 10 MG PO ×2 (15:50→21:43)
[2019-10-07] MEDS: Enoxaparin 80 MG/0.8 ML Syringe SC (15:54)
--- NOTE | 2019-10-07 17:09 | PN_ITS ---
Reason for Visit: COVID-19 pneumonia. Severe anxiety and restlessness. Objective: Low-grade fever, T-max 101.3 Fahrenheit. Vitals/I&O's: Vital Signs Temp Pulse Resp BP Pulse Ox 99.4 F H 105 H 18 119/78 95 10/07/19 16:12 10/07/19 16:12 10/07/19 16:12 10/07/19 16:12 10/07/19 16:12 Oxygen Flow Rate (L/min) 3 Oxygen Delivery Method Nasal Cannula Weight: 258 lb 13.163 oz Body Mass Index (BMI) 39.3 Intake and Output for Last 24 Hours 10/05/19 10/06/19 10/07/19 23:59 23:59 23:59 Intake Total 2827.50 / 2827.50 175 / 1752 Balance 2827.50 / 2827.50 1751 / 1751 General: Alert, Oriented x3, Cooperative, - - Patient is very anxious and restless. Denies hallucination HEENT: Atraumatic, PERRLA, EOMI, Normocephalic Neck: Supple, No JVD, Negative Carotid Bruits Lungs: Clear to auscultation, No rhonchi, No wheeze, No rales, Diminished Cardiovascular: Regular rate, Regular Rhythm, Normal S1, Normal S2, No murmurs Abdomen: Bowel Sounds Present, Soft, Non Tender, Non-Distended Extremities: No edema, Capillary Refill Less than 3 Seconds Skin: No rashes, No breakdown Musculoskeletal: No Tenderness to Palpation of Joints or Extremities, Arthritic Changes Neurological: Cranial nerves II-XII grossly intact, Deep Tendon Reflexes 2+/4 and Symmetrical, Neuro grossly intact Psych/Mental Status: Normal Affect, Appropriate Microbiology Past 72 Hours 10/07/19 07:15 Sputum, Expectorated/Coughed Gram Stain - Final 10/06/19 19:25 Mucosa - Nasopharyngeal Respiratory Panel (PCR) - Final Laboratory Results 10/06/19 15:25: MRSA (PCR) Negative 10/07/19 06:56: WBC 1.5 L, RBC 3.12 L, Hgb 9.7 L, Hct 32.2 L, MCV 103.2 H, MCH 31.1, MCHC 30.1 L, RDW Std Deviation 59.3 H, RDW Coeff of Jaun 15.7 H, Plt Count 104 L, MPV 10.3, Immature Gran % (Auto) 2.000 H, Neut % (Auto) 70.9 H, Lymph % (Auto) 17.2 L, [place] % (Auto) 9.9, Eos % (Auto) 0.0, Baso % (Auto) 0.0, Absolute Neuts (auto) 1.1 L, Absolute Lymphs (auto) 0.26 L, Nucleated RBC % 0, Differential Comment SCANNED 10/07/19 06:56: Sodium 134 L, Potassium 3.4 L, Chloride 106, Carbon Dioxide 20.0 L, Anion Gap 8, BUN 11, Creatinine 1.12 H, Estim Creat Clear Calc 55.90, Est GFR (MDRD) Af Amer 64, Est GFR (MDRD) Non-Af 53 L, BUN/Creatinine Ratio 9.8 L, Glucose 84, Calcium 7.9 L, Magnesium 1.8, Total Bilirubin 0.40, AST 32, ALT 20, Alkaline Phosphatase 62, Total Protein 5.5 L, Albumin 2.2 L, Globulin 3.3, Albumin/Globulin Ratio 0.7 L 10/07/19 12:10: D-Dimer Quant (PE/DVT) 1.90 H* 10/07/19 12:10: Ferritin 432 H, C-React Prot Ext Range 57.80 H Current Medications Acetaminophen (Tylenol) 650 mg PO Q6H PRN PRN PRN Reason: Pain Score 1-10/Temp > 100.7 F Last Admin: 10/07/19 01:27 Dose: 650 mg Documented by: Albuterol Sulfate (Ventolin Hfa (Sp)) 2 puff INHALATION Q4H PRN PRN PRN Reason: sob Last Admin: 10/07/19 01:49 Dose: 2 puff Documented by: Aspirin (Aspirin, Baby) 81 mg PO DAILY [facility] Last Admin: 10/07/19 08:46 Dose: 81 mg Documented by: Atorvastatin Calcium (Lipitor) 80 mg PO QHS [facility] Last Admin: 10/06/19 21:50 Dose: 80 mg Documented by: Buspirone HCl (Buspar) 10 mg PO BID [facility] Last Admin: 10/07/19 15:50 Dose: 10 mg Documented by: Dextrose (D50w Syringe) 0 gm IV X1 PRN; Protocol PRN Reason: Hypoglycemia Dicyclomine HCl (Bentyl) 10 mg PO TIDAC [facility] Last Admin: 10/07/19 15:50 Dose: 10 mg Documented by: Enoxaparin Sodium (Lovenox) 120 mg SC BID [facility] Furosemide (Lasix) 40 mg PO DAILY [facility] Last Admin: 10/07/19 08:59 Dose: 40 mg Documented by: Glucagon () 1 mg IM .X1 PRN PRN Reason: Hypoglycemia Guaifenesin (Mucinex) 1,200 mg PO BID [facility] Last Admin: 10/07/19 08:59 Dose: 1,200 mg Documented by: Sodium Chloride () 250 mls @ 15 mls/hr IV .[id number] PRN PRN Reason: Saline Flush Ceftriaxone Sodium 2 gm/ (Sodium Chloride) 50 mls @ 100 mls/hr IV Q24 [facility] Stop: 10/13/19 13:53 Last Infusion: 10/07/19 09:03 Dose: Infused Documented by: Ibuprofen (Motrin) 400 mg PO Q6H PRN PRN PRN Reason: pain 1-10/10 Lorazepam (Ativan) 0.5 mg PO Q8H PRN PRN PRN Reason: severe anxiety Last Admin: 10/07/19 08:46 Dose: 0.5 mg Documented by: Miscellaneous Information (Pocket Chamber) 1 each INHALATION Q4H PRN PRN Morphine Sulfate () 2 mg IV Q3H PRN PRN PRN Reason: Pain Score 6-10/10 Nitroglycerin (Nitrostat) 0.4 mg SUBLINGUAL Q5M PRN PRN Reason: CARDIAC/CHEST PAIN Oxycodone HCl (Oxyir) 5 mg PO Q4H PRN PRN PRN Reason: Pain Score 4-5/10 Last Admin: 10/07/19 13:02 Dose: 5 mg Documented by: Pantoprazole Sodium (Protonix) 40 mg PO DAILY [facility] Last Admin: 10/07/19 08:59 Dose: 40 mg Documented by: Paroxetine HCl (Paxil) 20 mg PO QHS [facility] Last Admin: 10/06/19 21:50 Dose: 20 mg Documented by: Potassium Chloride (K-Dur) 60 meq PO BID [facility] Last Admin: 10/07/19 08:57 Dose: 60 meq Documented by: Prednisone () 40 mg PO DAILY@0800 [facility]; Taper Stop: 10/19/19 07:59 Last Admin: 10/07/19 08:50 Dose: 40 mg Documented by: Prochlorperazine Edisylate (Compazine Iv) 5 mg IV Q4H PRN PRN PRN Reason: Breakthrough nausea/vomiting Promethazine HCl (Phenergan) 12.5 mg IV Q6H PRN PRN PRN Reason: Breakthrough nausea/vomiting Last Admin: 10/07/19 16:55 Dose: 12.5 mg Documented by: Senna/Docusate Sodium (Senokot-S, Misti-Colace) 2 tablet PO BID PRN PRN PRN Reason: Constipation Sodium Chloride () 10 - 40 ml IV UD PRN PRN Reason: SALINE FLUSH Last Admin: 10/07/19 16:55 Dose: 20 ml Documented by: Temazepam (Restoril) 30 mg PO QHS [facility] Last Admin: 10/06/19 23:26 Dose: 30 mg Documented by: STROKE Vital Signs/Narrative: Vital Signs Temp Pulse Resp BP Pulse Ox 10/07/19 16:12 99.4 F H 105 H 18 119/78 95 Medical Necessity - Tobacco Use Smoking Status: Former smoker Assessment/Plan All Active Problems (Last Updated 10/04/19 @ 10:[address] Blayne Santana, DO) Sepsis (Acute) Respiratory tract infection due to COVID-19 virus (Acute) Endocarditis (Resolved) Shortness of breath (Acute) Pneumonia (Acute) Bronchitis (Acute) History of tubal ligation (Resolved) History of umbilical hernia (Resolved) History of appendectomy (Resolved) History of hysterectomy (Resolved) History of cholecystectomy (Resolved) History of diarrhea (Resolved) Sepsis (Resolved) The patient is a 58 year old F with multiple comorbidities as listed above including obstructive sleep apnea and asthma, last admission 10/01/2019- 10/04/2019 came back to ER with progressive worsening of shortness of breath and hypoxia, pulse ox dropped to 70% at home. In ER, temperature 102.3 ?F, heart rate 124/min, respiratory rate 26 to 30/min and pulse ox 95% on 2 L of oxygen. [] In ED, she is leukopenic, normocytic 2.3 thousand, H&H 11/35.5, platelet count 126 similar to labs during previous admission. CTPA was done in ER and was independently reviewed. It is negative for PE but has bilateral patchy infiltrate in the peripheral aspect suggestive of COVID pneumonia. During previous admission, she was tested positive for COVID-19. Patient was started on steroids and discharged on Levaquin and prednisone. 1. Sepsis with acute respiratory insufficiency secondary to COVID 19 pneumonia present on admission: Patient is being admitted on the floor. She recently had urinary antigens are negative on 09/30, blood cultures are negative for 5 days. Rapid group A strep treated throat was negative. Sputum culture was positive for presumptive Kimberly albicans and mixed orin. Started on IV Rocephin and Zithromax. Blood cultures x2 sent from ER. MRSA nasal screen and sputum culture ordered. Lactic acid normal. 10/06: Low-grade fever. Continue Rocephin. Zithromax discontinued as patient also had Zithromax during previous admission and had 2 doses this admission. D- dimer 1.9, started on therapeutic dose of Lovenox. Ferritin and CRP elevated. Discussed with ID. 2. COVID-19 pneumonia: CTPA was done in ER and was independently reviewed. It is negative for PE but has bilateral patchy infiltrate in the peripheral aspect suggestive of COVID pneumonia. LDH and pro calcitonin ordered. 10/06: Procalcitonin 0.17. Therefore risk for progressing to severe sepsis low. LDH 377. 3. Bronchiectasis, asthma, pulmonary hypertension: Patient was discharged on prednisone 40 mg daily and is continued with taper schedule. Continue bronchodilator, incentive spirometry, chest physiotherapy/PEP. 4 pancytopenia: Patient has pancytopenia, WBC count 2.3 thousand H&H 35 and platelet count 1 26,000. This is similar to previous admission. Her white count has improved as it was 1.4 on 10/02/2019. 5. Anxiety and depression: Patient on Paxil at home. She is also on Restoril at night. Started on lorazepam 0.5 mg every 8 hourly as needed for severe anxiety attack. 6. Migraine: Patient patient is on as needed acetaminophen and ibuprofen. 7. VTE prophylaxis: Moderate risk. On Lovenox 40 mg q. 12 hourly. Living will/advanced directive/end of life care: Patient does have living will or advanced directive. DNR CC arrest no intubation Clinical Impression(s) from Imaging Studies Chest CTA 10/06/19 08:40 IMPRESSION: Patchy bilateral infiltrates as described. There is a preferential distribution towards the peripheral aspects of the lungs. Covid pneumonia should be ruled out. Inpatient E&M: 33134 Subs Hosp L3
[2019-10-07] MEDS: Enoxaparin 120 MG/0.8 ML Syringe SC (21:45)
[2019-10-07] MEDS: Atorvastatin Calcium 80 MG Tablet PO (21:45)
[2019-10-07] MEDS: Paroxetine 20 MG Tablet PO (21:46)
[2019-10-07] MEDS: Temazepam 15 MG Capsule 30 MG PO (21:47)
[2019-10-08] VITALS (10 sets, daily range): BP systolic 104–129; BP diastolic 38–90; PULSE 80–123; RESP 16–20; TEMP 37–39.6; O2SAT 90–99
[2019-10-08] MEDS: oxyCODONE 5 MG Tablet PO ×3 (04:53→18:41)
[2019-10-08] MEDS: Acetaminophen 325 MG Tablet 650 MG PO ×2 (04:53→18:41)
[2019-10-08] MEDS: 0.9% Saline Lock 10 ML Syringe IV ×3 (04:55→20:45)
--- NOTE | 2019-10-08 05:24 | NURSING ---
pt called and stated that pt told him that she is going to be intubated. Reassured that pt sats are 99% on 3L of [place] O2 and that pt primary rn had just left her room. Primary rn aware
[2019-10-08] MEDS: LORazepam 0.5 MG Tablet PO ×2 (06:00→14:31)
[2019-10-08] MEDS: Dicyclomine 10 MG Capsule PO ×3 (06:00→15:52)
[2019-10-08 06:29] LABS: ALB/GLOB Ratio 0.9 RATIO (0.9-2.4); AST(SGOT) 27 U/L (15-37); Alanine Aminotransfer ALT/SGPT 21 U/L (13-56); Alkaline Phosphatase 68 U/L (45-117); Anion Gap 8 (5-15); BUN 10 mg/dL (7-18); BUN/Creat Ratio 8.2 RATIO (10-20); Calcium,Total 8.5 mg/dL (8.5-10.1); Chloride 106 mmol/L (98-107); Creatinine, Serum 1.22 mg/dL (0.55-1.02); EST Glomerular Filtration Rate 48 mL/min (>60); Est Glom Filt Rate - Afr Amer 58 mL/min (>60); Estimated Creatinine Clearance 51.32 ml/min; Globulin 3.4 g/dL (2.2-4.2); Glucose 110 mg/dL (74-106); Protein, Total 6.4 g/dL (6.4-8.2); Sodium Level 138 mmol/L (136-145)
[2019-10-08] MEDS: predniSONE 10 MG Tablet 30 MG PO (08:23)
[2019-10-08] MEDS: proMETHazine 25 MG/ML Syringe 12.5 MG IV (08:51)
[2019-10-08] MEDS: Pantoprazole Sodium 40 MG Tablet PO (09:05)
[2019-10-08] MEDS: busPIRone 5 MG Tablet 10 MG PO ×2 (09:05→20:46)
[2019-10-08] MEDS: Furosemide 40 MG Tablet PO (09:05)
[2019-10-08] MEDS: Aspirin 81 MG TAB.CHEW PO (09:05)
[2019-10-08] MEDS: guaiFENesin 1,200 MG Tablet 1200 MG PO ×2 (09:06→20:46)
[2019-10-08] MEDS: Enoxaparin 120 MG/0.8 ML Syringe SC ×2 (09:06→20:45)
--- NOTE | 2019-10-08 09:47 | CASEMGMT ---
Addendum entered by Samanta Vaughan 10/08/19 15:21: SW again attempted to call pt twice. SW called pt's room and pt's cell phone with no answer. SW leaving soon for the day, will try and speak with pt tomorrow. Original Note: Social Work Note SW attempted to call pt twice (once on pt's room phone and once on cell phone) with no answer. Voicemail is not set up on pt's cell phone. SW unable to enter pt's room due to pt testing positive for COVID and being in COVID precautions. SW will attempt to call pt again as time allows. Samanta Vaughan FERRY HAND, [employer]
--- NOTE | 2019-10-08 14:35 | PN_ITS ---
Reason for Visit: Patient has fever, T-max 103.2 display carver today. Mild tachycardia, blood pressure maintained. Patient is on 2 L of oxygen, her baseline oxygen requirement. Vitals/I&O's: Vital Signs Temp Pulse Resp BP Pulse Ox 100.2 F H 109 H 18 118/38 L 93 10/08/19 11:30 10/08/19 11:30 10/08/19 11:30 10/08/19 11:30 10/08/19 11:30 Oxygen Flow Rate (L/min) 2 Oxygen Delivery Method Nasal Cannula Weight: 258 lb 13.163 oz Body Mass Index (BMI) 39.3 Intake and Output for Last 24 Hours 10/06/19 10/07/19 10/08/19 23:59 23:59 23:59 Intake Total 2827.50 / 2827.50 1752 / 1752 488.75 / 488.75 Balance 2827.50 / 2827.50 1752 / 1752 488.75 / 488.75 General: Alert, Oriented x3, Cooperative HEENT: Atraumatic, PERRLA, EOMI, Normocephalic Neck: Supple, No JVD, Negative Carotid Bruits Lungs: No wheeze, No rales, Diminished, Rhonchi Cardiovascular: Regular rate, Regular Rhythm, Normal S1, Normal S2, No murmurs Abdomen: Bowel Sounds Present, Soft, Non Tender, Non-Distended Extremities: Capillary Refill Less than 3 Seconds, Edema Skin: No rashes, No breakdown Musculoskeletal: No Tenderness to Palpation of Joints or Extremities, Arthritic Changes Neurological: Cranial nerves II-XII grossly intact, Deep Tendon Reflexes 2+/4 and Symmetrical, Neuro grossly intact Psych/Mental Status: Anxious, Depressed Microbiology Past 72 Hours 10/07/19 07:15 Sputum, Expectorated/Coughed Gram Stain - Final 10/07/19 07:15 Sputum, Expectorated/Coughed Respiratory Culture - Preliminary Appears to be normal respiratory orin. Further studies to follow. 10/06/19 09:10 Blood Culture (Wb) - Right Hand Blood Culture - Preliminary No growth in 48 hours. 10/06/19 08:35 Blood Culture (Wb) - Left Forearm Blood Culture - Preliminary No growth in 48 hours. 10/06/19 19:25 Mucosa - Nasopharyngeal Respiratory Panel (PCR) - Final Laboratory Results 10/08/19 06:00: Sodium 138, Potassium 4.0, Chloride 106, Carbon Dioxide 24.0, Anion Gap 8, BUN 10, Creatinine 1.22 H, Estim Creat Clear Calc 51.32, Est GFR (MDRD) Af Amer 58 L, Est GFR (MDRD) Non-Af 48 L, BUN/Creatinine Ratio 8.2 L, Glucose 110 H, Calcium 8.5, Total Bilirubin 0.70, AST 27, ALT 21, Alkaline Phosphatase 68, Total Protein 6.4, Albumin 3.0 L, Globulin 3.4, Albumin/Globulin Ratio 0.9 Current Medications Acetaminophen (Tylenol) 650 mg PO Q6H PRN PRN PRN Reason: Pain Score 1-10/Temp > 100.7 F Last Admin: 10/08/19 04:53 Dose: 650 mg Documented by: Albuterol Sulfate (Ventolin Hfa (Sp)) 2 puff INHALATION Q4H PRN PRN PRN Reason: sob Last Admin: 10/07/19 01:49 Dose: 2 puff Documented by: Aspirin (Aspirin, Baby) 81 mg PO DAILY [facility] Last Admin: 10/08/19 09:05 Dose: 81 mg Documented by: Atorvastatin Calcium (Lipitor) 80 mg PO QHS [facility] Last Admin: 10/07/19 21:45 Dose: 80 mg Documented by: Buspirone HCl (Buspar) 10 mg PO BID [facility] Last Admin: 10/08/19 09:05 Dose: 10 mg Documented by: Dextrose (D50w Syringe) 0 gm IV X1 PRN; Protocol PRN Reason: Hypoglycemia Dicyclomine HCl (Bentyl) 10 mg PO TIDAC [facility] Last Admin: 10/08/19 12:09 Dose: 10 mg Documented by: Enoxaparin Sodium (Lovenox) 120 mg SC BID [facility] Last Admin: 10/08/19 09:06 Dose: 120 mg Documented by: Furosemide (Lasix) 40 mg PO DAILY [facility] Last Admin: 10/08/19 09:05 Dose: 40 mg Documented by: Glucagon () 1 mg IM .X1 PRN PRN Reason: Hypoglycemia Guaifenesin (Mucinex) 1,200 mg PO BID [facility] Last Admin: 10/08/19 09:06 Dose: 1,200 mg Documented by: Sodium Chloride () 250 mls @ 15 mls/hr IV .[id number] PRN PRN Reason: Saline Flush Ceftriaxone Sodium 2 gm/ (Sodium Chloride) 50 mls @ 100 mls/hr IV Q24 [facility] Stop: 10/13/19 13:53 Last Infusion: 10/08/19 09:34 Dose: Infused Documented by: Ibuprofen (Motrin) 400 mg PO Q6H PRN PRN PRN Reason: pain 1-10/10 Lorazepam (Ativan) 0.5 mg PO Q8H PRN PRN PRN Reason: severe anxiety Last Admin: 10/08/19 14:31 Dose: 0.5 mg Documented by: Miscellaneous Information (Pocket Chamber) 1 each INHALATION Q4H PRN PRN Morphine Sulfate () 2 mg IV Q3H PRN PRN PRN Reason: Pain Score 6-10/10 Nitroglycerin (Nitrostat) 0.4 mg SUBLINGUAL Q5M PRN PRN Reason: CARDIAC/CHEST PAIN Oxycodone HCl (Oxyir) 5 mg PO Q4H PRN PRN PRN Reason: Pain Score 4-5/10 Last Admin: 10/08/19 08:59 Dose: 5 mg Documented by: Pantoprazole Sodium (Protonix) 40 mg PO DAILY [facility] Last Admin: 10/08/19 09:05 Dose: 40 mg Documented by: Paroxetine HCl (Paxil) 20 mg PO QHS [facility] Last Admin: 10/07/19 21:46 Dose: 20 mg Documented by: Potassium Chloride (K-Dur) 60 meq PO BID [facility] Last Admin: 10/08/19 09:05 Dose: 60 meq Documented by: Prednisone () 40 mg PO DAILY@0800 [facility]; Taper Stop: 10/19/19 07:59 Last Admin: 10/08/19 08:23 Dose: 40 mg Documented by: Prochlorperazine Edisylate (Compazine Iv) 5 mg IV Q4H PRN PRN PRN Reason: Breakthrough nausea/vomiting Promethazine HCl (Phenergan) 12.5 mg IV Q6H PRN PRN PRN Reason: Breakthrough nausea/vomiting Last Admin: 10/08/19 08:51 Dose: 12.5 mg Documented by: Senna/Docusate Sodium (Senokot-S, Misti-Colace) 2 tablet PO BID PRN PRN PRN Reason: Constipation Sodium Chloride () 10 - 40 ml IV UD PRN PRN Reason: SALINE FLUSH Last Admin: 10/08/19 08:53 Dose: 10 ml Documented by: Temazepam (Restoril) 30 mg PO QHS [facility] Last Admin: 10/07/19 21:47 Dose: 30 mg Documented by: STROKE Vital Signs/Narrative: Vital Signs Temp Pulse Resp BP Pulse Ox 10/08/19 11:30 100.2 F H 109 H 18 118/38 L 93 10/08/19 10:59 93 Medical Necessity - Tobacco Use Smoking Status: Former smoker Assessment/Plan All Active Problems (Last Updated 10/04/19 @ 10:[address] Blayne Santana, DO) Sepsis (Acute) Respiratory tract infection due to COVID-19 virus (Acute) Endocarditis (Resolved) Shortness of breath (Acute) Pneumonia (Acute) Bronchitis (Acute) History of tubal ligation (Resolved) History of umbilical hernia (Resolved) History of appendectomy (Resolved) History of hysterectomy (Resolved) History of cholecystectomy (Resolved) History of diarrhea (Resolved) Sepsis (Resolved) The patient is a 58 year old F with multiple comorbidities as listed above including obstructive sleep apnea and asthma, last admission 10/01/2019- 10/04/2019 came back to ER with progressive worsening of shortness of breath and hypoxia, pulse ox dropped to 70% at home. In ER, temperature 102.3 ?F, heart rate 124/min, respiratory rate 26 to 30/min and pulse ox 95% on 2 L of oxygen. [] In ED, she is leukopenic, normocytic 2.3 thousand, H&H 11/35.5, platelet count 126 similar to labs during previous admission. CTPA was done in ER and was independently reviewed. It is negative for PE but has bilateral patchy infiltrate in the peripheral aspect suggestive of COVID pneumonia. During previous admission, she was tested positive for COVID-19. Patient was started on steroids and discharged on Levaquin and prednisone. 1. Sepsis with acute respiratory insufficiency secondary to COVID 19 pneumonia present on admission: Patient is being admitted on the floor. She recently had urinary antigens are negative on 09/30, blood cultures are negative for 5 days. Rapid group A strep treated throat was negative. Sputum culture was positive for presumptive Kimberly albicans and mixed orin. Started on IV Rocephin and Zithromax. Blood cultures x2 sent from ER. MRSA nasal screen and sputum culture ordered. Lactic acid normal. 10/06: Low-grade fever. Continue Rocephin. Zithromax discontinued as patient also had Zithromax during previous admission and had 2 doses this admission. D- dimer 1.9, started on therapeutic dose of Lovenox. Ferritin and CRP elevated. Discussed with ID. 10/07: Patient is still spiking fever. On Rocephin. Blood culture negative for more than 48 hours. Sputum culture appears normal respiratory orin. 2. COVID-19 pneumonia: CTPA was done in ER and was independently reviewed. It is negative for PE but has bilateral patchy infiltrate in the peripheral aspect suggestive of COVID pneumonia. LDH and pro calcitonin ordered. 10/06: Procalcitonin 0.17. Therefore risk for progressing to severe sepsis or septic shock low. LDH 377. 3. Bronchiectasis, asthma, pulmonary hypertension: Patient was discharged on prednisone 40 mg daily and is continued with taper schedule. Continue bronchodilator, incentive spirometry, chest physiotherapy/PEP. 4 pancytopenia: Patient has pancytopenia, WBC count 2.3 thousand H&H and platelet count 1 26,000. This is similar to previous admission. Her white count has improved as it was 1.4 on 10/02/2019. 5. Anxiety and depression: Patient on Paxil at home. She is also on Restoril at night. Started on lorazepam 0.5 mg every 8 hourly as needed for severe anxiety attack. 6. Migraine: Patient patient is on as needed acetaminophen and ibuprofen. 7. VTE prophylaxis: Moderate risk. On Lovenox 40 mg q. 12 hourly. Living will/advanced directive/end of life care: Patient does have living will or advanced directive. DNR CC arrest no intubation Microbiology Past 72 Hours 10/07/19 07:15 Sputum, Expectorated/Coughed Gram Stain - Final 10/07/19 07:15 Sputum, Expectorated/Coughed Respiratory Culture - Preliminary Appears to be normal respiratory orin. Further studies to follow. 10/06/19 09:10 Blood Culture (Wb) - Right Hand Blood Culture - Preliminary No growth in 48 hours. 10/06/19 08:35 Blood Culture (Wb) - Left Forearm Blood Culture - Preliminary No growth in 48 hours. 10/06/19 19:25 Mucosa - Nasopharyngeal Respiratory Panel (PCR) - Final Laboratory Results 10/08/19 06:00: Sodium 138, Potassium 4.0, Chloride 106, Carbon Dioxide 24.0, Anion Gap 8, BUN 10, Creatinine 1.22 H, Estim Creat Clear Calc 51.32, Est GFR (MDRD) Af Amer 58 L, Est GFR (MDRD) Non-Af 48 L, BUN/Creatinine Ratio 8.2 L, Glucose 110 H, Calcium 8.5, Total Bilirubin 0.70, AST 27, ALT 21, Alkaline Phosphatase 68, Total Protein 6.4, Albumin 3.0 L, Globulin 3.4, Albumin/Globulin Ratio 0.9 Clinical Impression(s) from Imaging Studies Chest CTA 10/06/19 08:40 IMPRESSION: Patchy bilateral infiltrates as described. There is a preferential distribution towards the peripheral aspects of the lungs. Covid pneumonia should be ruled out. Inpatient E&M: 77401 Subs Hosp L2
--- NOTE | 2019-10-08 18:54 | NURSING ---
This RN entered pt's room to remove trash and linens and to give pt ice water before dinner. called patient. She apologized to him for not answering her phone. Then, she notifies she has not been doing well and that just a short while ago her temperature was 103.7. Hebert had patient previously and last documented temp was 99.1. After dinner, at 1835 pt called out stating she has a really high fever and needs pain meds. She moved to side of bed and placed trash can in front of her as if she was preparing to vomit. Pt began to cry and then began forcefully coughing. pt reports headache and need for oxyir and tylenol and that she currently has a fever of 102.7. This RN took patient's temperature and was 99.2. Pt looked at this RN and states, at least look at my home thermometer so that you don't think I am crazy. This RN notified pt that the only vitals documented are collected by staff. Noted that patient is tucking home thermometer under her cpap.
[2019-10-08] MEDS: Temazepam 15 MG Capsule 30 MG PO (20:46)
[2019-10-08] MEDS: Atorvastatin Calcium 80 MG Tablet PO (20:46)
[2019-10-08] MEDS: Paroxetine 20 MG Tablet PO (20:46)
[2019-10-08] MEDS: Senna/Docusate Sodium 1 Tablet 2 TABLET PO (20:48)
[2019-10-08] MEDS: Morphine 2 MG/ML Syringe IV (20:48)
[2019-10-09] VITALS (9 sets, daily range): BP systolic 100–150; BP diastolic 67–71; PULSE 57–120; RESP 16–20; TEMP 37.4–39.6; O2SAT 91–94
[2019-10-09] MEDS: proMETHazine 25 MG/ML Syringe 12.5 MG IV (03:50)
[2019-10-09] MEDS: Acetaminophen 325 MG Tablet 650 MG PO ×2 (03:50→11:31)
[2019-10-09] MEDS: Morphine 2 MG/ML Syringe IV ×2 (03:50→08:25)
[2019-10-09] MEDS: 0.9% Saline Lock 10 ML Syringe IV ×3 (03:50→09:31)
[2019-10-09] MEDS: LORazepam 0.5 MG Tablet PO ×3 (05:02→21:09)
[2019-10-09] MEDS: Dicyclomine 10 MG Capsule PO ×3 (05:02→15:34)
[2019-10-09 07:10] LABS: Absolute Neutrophil Count 2.3 X10^3/uL (2.0-7.7); Hematocrit 27.5 % (37-47); Hemoglobin 8.6 g/dL (12.0-15.0); Lymphocyte % 16.3 % (19-41); Mean Corp Hgb Conc 31.3 g/dL (32-36); Mean Corpuscular Hgb 30.5 pg (27.0-32.0); Mean Corpuscular Volume 97.5 fL (81-99); Mean Platelet Vol. 10.7 fl (6.2-12.0); Monocyte# 0.21 X10^3/uL; Monocyte% 6.8 % (0-10); Neutrophil # 2.33 X10^3/uL (2.7-7.7); Neutrophil % 75.9 % (47-70); POSITIVE DIFFERENTIAL YES; POSITIVE MORPHOLOGY YES; Platelet Count 157 K/mm3 (150-450); RBC Distribution Width CV 15.1 % (11.6-14.6); RBC Distribution Width SD 54.5 fl (35.1-43.9); Red Blood Count 2.82 M/mm3 (4.2-5.4); White Blood Count 3.1 K/mm3 (4.4-11.0)
[2019-10-09 07:17] LABS: Differential Indicated SCAN CRITERIA MET
[2019-10-09 07:25] LABS: ALB/GLOB Ratio 0.8 RATIO (0.9-2.4); AST(SGOT) 36 U/L (15-37); Alanine Aminotransfer ALT/SGPT 23 U/L (13-56); Albumin, Serum 2.4 g/dL (3.2-5.0); Alkaline Phosphatase 67 U/L (45-117); Anion Gap 5 (5-15); BUN 10 mg/dL (7-18); BUN/Creat Ratio 8.9 RATIO (10-20); Calcium,Total 7.8 mg/dL (8.5-10.1); Chloride 103 mmol/L (98-107); Creatinine, Serum 1.12 mg/dL (0.55-1.02); EST Glomerular Filtration Rate 53 mL/min (>60); Est Glom Filt Rate - Afr Amer 64 mL/min (>60); Globulin 3.2 g/dL (2.2-4.2); Glucose 95 mg/dL (74-106); Potassium 4.1 mmol/L (3.5-5.1); Protein, Total 5.6 g/dL (6.4-8.2); Sodium Level 135 mmol/L (136-145)
[2019-10-09 07:31] LABS: Ferritin 428 ng/mL (8-252)
[2019-10-09] MEDS: Pantoprazole Sodium 40 MG Tablet PO (08:22)
[2019-10-09] MEDS: busPIRone 5 MG Tablet 10 MG PO ×3 (08:22→21:08)
[2019-10-09] MEDS: predniSONE 10 MG Tablet 30 MG PO (08:23)
[2019-10-09] MEDS: Aspirin 81 MG TAB.CHEW PO (08:23)
[2019-10-09] MEDS: guaiFENesin 1,200 MG Tablet 1200 MG PO ×2 (08:24→21:09)
[2019-10-09] MEDS: Enoxaparin 120 MG/0.8 ML Syringe SC ×2 (08:24→21:08)
[2019-10-09 08:36] LABS: Anisocytosis 1+; Atypical Lymphocyte RARE %; Platelet Estimate ADEQUATE (ADEQ); Red Cell Morphology N CHROM NORMAL (NORM C&C)
[2019-10-09 11:29] LABS: Pathologist Review Reviewed
--- NOTE | 2019-10-09 14:05 | PCM.PN.HOSP ---
Reason for Visit: Acute hypoxic respiratory failure secondary to COVID pneumonia Subjective: Patient still gets anxiety and panic attack. BuSpar dose increased to 10 mg 3 times daily. Extra dose of Ativan 0.5 mg IV given. Sometimes patient feels restless wants to go home sometimes wants to stay back. 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 Patient denies chest pain or tightness. Pulse ox 94% 2 L of oxygen. no tachypnea. Objective: General: Alert, Oriented x3, Cooperative HEENT: Atraumatic, PERRLA, EOMI, Normocephalic Neck: Supple, No JVD, Negative Carotid Bruits Lungs: No wheeze, No rales, Diminished, mild expiratory rhonchi Cardiovascular: Regular rate, Regular Rhythm, Normal S1, Normal S2, No murmurs Abdomen: Bowel Sounds Present, Soft, Non Tender, Non-Distended Extremities: Capillary Refill Less than 3 Seconds, Edema Skin: No rashes, No breakdown Musculoskeletal: No Tenderness to Palpation of Joints or Extremities, Arthritic Changes Neurological: Cranial nerves II-XII grossly intact, Deep Tendon Reflexes 2+/4 and Symmetrical, Neuro grossly intact Psych/Mental Status: Anxious with panic attack, Depressed Vitals/I&O's: Vital Signs Temp Pulse Resp BP Pulse Ox 100 F H 105 H 18 105/69 94 10/09/19 12:57 10/09/19 12:57 10/09/19 12:57 10/09/19 11:22 10/09/19 13:53 Oxygen Flow Rate (L/min) 2 Oxygen Delivery Method Nasal Cannula Weight: 258 lb 13.163 oz Body Mass Index (BMI) 39.3 Intake and Output for Last 24 Hours 10/07/19 10/08/19 10/09/19 23:59 23:59 23:59 Intake Total 1752 / 1752 988.75 / 988.75 2650 / 2650 Balance 1752 / 1752 988.75 / 988.75 2650 / 2650 Microbiology Past 72 Hours 10/07/19 07:15 Sputum, Expectorated/Coughed Gram Stain - Final 10/07/19 07:15 Sputum, Expectorated/Coughed Respiratory Culture - Final Presumptive C albicans Mixed Orin 10/06/19 09:10 Blood Culture (Wb) - Right Hand Blood Culture - Preliminary No growth in 48 hours. 10/06/19 08:35 Blood Culture (Wb) - Left Forearm Blood Culture - Preliminary No growth in 48 hours. 10/06/19 19:25 Mucosa - Nasopharyngeal Respiratory Panel (PCR) - Final Laboratory Results 10/09/19 06:18: D-Dimer Quant (PE/DVT) 0.90 H* 10/09/19 06:18: Ferritin 428 H 10/09/19 06:20: Sodium 135 L, Potassium 4.1, Chloride 103, Carbon Dioxide 27.0, Anion Gap 5, BUN 10, Creatinine 1.12 H, Estim Creat Clear Calc 55.90, Est GFR (MDRD) Af Amer 64, Est GFR (MDRD) Non-Af 53 L, BUN/Creatinine Ratio 8.9 L, Glucose 95, Calcium 7.8 L, Total Bilirubin 0.70, AST 36, ALT 23, Alkaline Phosphatase 67, C-React Prot Ext Range 35.80 H, Total Protein 5.6 L, Albumin 2.4 L, Globulin 3.2, Albumin/Globulin Ratio 0.8 L 10/09/19 06:20: WBC 3.1 L, RBC 2.82 L, Hgb 8.6 L, Hct 27.5 L, MCV 97.5 D, MCH 30.5, MCHC 31.3 L, RDW Std Deviation 54.5 H, RDW Coeff of Jaun 15.1 H, Plt Count 157, MPV 10.7, Immature Gran % (Auto) 1.000 H, Neut % (Auto) 75.9 H, Lymph % (Auto) 16.3 L, Bath % (Auto) 6.8, Eos % (Auto) 0.0, Baso % (Auto) 0.0, Absolute Neuts (auto) 2.3, Absolute Lymphs (auto) 0.50 L, Nucleated RBC % 1.0, Differential Comment , Diff Path Review Reviewed, Atypical Lymphocytes RARE, Platelet Estimate ADEQUATE, RBC Morphology TF, Anisocytosis 1+ Current Medications Acetaminophen (Tylenol) 650 mg PO Q6H PRN PRN PRN Reason: Pain Score 1-10/Temp > 100.7 F Last Admin: 10/09/19 11:31 Dose: 650 mg Documented by: Albuterol Sulfate (Ventolin Hfa (Sp)) 2 puff INHALATION Q4H PRN PRN PRN Reason: sob Last Admin: 10/07/19 01:49 Dose: 2 puff Documented by: Aspirin (Aspirin, Baby) 81 mg PO DAILY [facility] Last Admin: 10/09/19 08:23 Dose: 81 mg Documented by: Atorvastatin Calcium (Lipitor) 80 mg PO QHS [facility] Last Admin: 10/08/19 20:46 Dose: 80 mg Documented by: Buspirone HCl (Buspar) 10 mg PO TID [facility] Dextrose (D50w Syringe) 0 gm IV X1 PRN; Protocol PRN Reason: Hypoglycemia Dicyclomine HCl (Bentyl) 10 mg PO TIDAC [facility] Last Admin: 10/09/19 11:26 Dose: 10 mg Documented by: Enoxaparin Sodium (Lovenox) 120 mg SC BID [facility] Last Admin: 10/09/19 08:24 Dose: 120 mg Documented by: Furosemide (Lasix) 40 mg PO DAILY [facility] Last Admin: 10/09/19 08:22 Dose: Not Given Documented by: Glucagon () 1 mg IM .X1 PRN PRN Reason: Hypoglycemia Guaifenesin (Mucinex) 1,200 mg PO BID [facility] Last Admin: 10/09/19 08:24 Dose: 1,200 mg Documented by: Sodium Chloride () 250 mls @ 15 mls/hr IV .[id number] PRN PRN Reason: Saline Flush Ceftriaxone Sodium 2 gm/ (Sodium Chloride) 50 mls @ 100 mls/hr IV Q24 [facility] Stop: 10/13/19 13:53 Last Infusion: 10/09/19 11:28 Dose: Infused Documented by: Ibuprofen (Motrin) 400 mg PO Q6H PRN PRN PRN Reason: pain 1-10/10 Lorazepam (Ativan) 0.5 mg PO Q8H PRN PRN PRN Reason: severe anxiety Last Admin: 10/09/19 12:42 Dose: 0.5 mg Documented by: Miscellaneous Information (Pocket Chamber) 1 each INHALATION Q4H PRN PRN Morphine Sulfate () 2 mg IV Q3H PRN PRN PRN Reason: Pain Score 6-10/10 Last Admin: 10/09/19 08:25 Dose: 2 mg Documented by: Nitroglycerin (Nitrostat) 0.4 mg SUBLINGUAL Q5M PRN PRN Reason: CARDIAC/CHEST PAIN Oxycodone HCl (Oxyir) 5 mg PO Q4H PRN PRN PRN Reason: Pain Score 4-5/10 Last Admin: 10/08/19 18:41 Dose: 5 mg Documented by: Pantoprazole Sodium (Protonix) 40 mg PO DAILY [facility] Last Admin: 10/09/19 08:22 Dose: 40 mg Documented by: Paroxetine HCl (Paxil) 20 mg PO QHS [facility] Last Admin: 10/08/19 20:46 Dose: 20 mg Documented by: Potassium Chloride (K-Dur) 60 meq PO BID [facility] Last Admin: 10/09/19 08:24 Dose: 60 meq Documented by: Prednisone () 40 mg PO DAILY@0800 [facility]; Taper Stop: 10/19/19 07:59 Last Admin: 10/09/19 08:23 Dose: 40 mg Documented by: Prochlorperazine Edisylate (Compazine Iv) 5 mg IV Q4H PRN PRN PRN Reason: Breakthrough nausea/vomiting Promethazine HCl (Phenergan) 12.5 mg IV Q6H PRN PRN PRN Reason: Breakthrough nausea/vomiting Last Admin: 10/09/19 03:50 Dose: 12.5 mg Documented by: Senna/Docusate Sodium (Senokot-S, Misti-Colace) 2 tablet PO BID PRN PRN PRN Reason: Constipation Last Admin: 10/08/19 20:48 Dose: 2 tablet Documented by: Sodium Chloride () 10 - 40 ml IV UD PRN PRN Reason: SALINE FLUSH Last Admin: 10/09/19 09:31 Dose: 10 ml Documented by: Temazepam (Restoril) 30 mg PO QHS [facility] Last Admin: 10/08/19 20:46 Dose: 30 mg Documented by: STROKE Vital Signs/Narrative: Vital Signs Temp Pulse Resp BP Pulse Ox 10/09/19 13:53 94 10/09/19 12:57 100 F H 105 H 18 92 10/09/19 11:22 101 F H 110 H 18 105/69 91 Medical Necessity - Tobacco Use Smoking Status: Former smoker Assessment/Plan All Active Problems (Last Updated 10/04/19 @ 10:[address] Blayne Santana, DO) Sepsis (Acute) Respiratory tract infection due to COVID-19 virus (Acute) Endocarditis (Resolved) Shortness of breath (Acute) Pneumonia (Acute) Bronchitis (Acute) History of tubal ligation (Resolved) History of umbilical hernia (Resolved) History of appendectomy (Resolved) History of hysterectomy (Resolved) History of cholecystectomy (Resolved) History of diarrhea (Resolved) Sepsis (Resolved) The patient is a 58 year old F with multiple comorbidities as listed above including obstructive sleep apnea and asthma, last admission 10/01/2019- 10/04/2019 came back to ER with progressive worsening of shortness of breath and hypoxia, pulse ox dropped to 70% at home. In ER, temperature 102.3 ?F, heart rate 124/min, respiratory rate 26 to 30/min and pulse ox 95% on 2 L of oxygen. [] In ED, she is leukopenic, normocytic 2.3 thousand, H&H 11/35.5, platelet count 126 similar to labs during previous admission. CTPA was done in ER and was independently reviewed. It is negative for PE but has bilateral patchy infiltrate in the peripheral aspect suggestive of COVID pneumonia. During previous admission, she was tested positive for COVID-19. Patient was started on steroids and discharged on Levaquin and prednisone. 1. Sepsis with acute respiratory insufficiency secondary to COVID 19 pneumonia present on admission: Patient is being admitted on the floor. She recently had urinary antigens are negative on 09/30, blood cultures are negative for 5 days. Rapid group A strep treated throat was negative. Sputum culture was positive for presumptive Kimberly albicans and mixed orin. Started on IV Rocephin and Zithromax. Blood cultures x2 sent from ER. MRSA nasal screen and sputum culture ordered. Lactic acid normal. 10/06: Low-grade fever. Continue Rocephin. Zithromax discontinued as patient also had Zithromax during previous admission and had 2 doses this admission. D-dimer 1.9, started on therapeutic dose of Lovenox. Ferritin and CRP elevated. Discussed with ID. 10/07: Patient is still spiking fever. On Rocephin. Blood culture negative for more than 48 hours. Sputum culture appears normal respiratory orin. 10/08: WBC count improved. Still has anemia and leukopenia. Platelet count 1 57,000. Normocytic normochromic anemia probably secondary to anticoagulant. 2. COVID-19 pneumonia: CTPA was done in ER and was independently reviewed. It is negative for PE but has bilateral patchy infiltrate in the peripheral aspect suggestive of COVID pneumonia. LDH and pro calcitonin ordered. 10/06: Procalcitonin 0.17. Therefore risk for progressing to severe sepsis or septic shock low. LDH 377. 10/08: D-dimer, CRP and ferritin improved. Gram stain of history and culture shows mixed orin, presumptive Kimberly. Respiratory panel is negative. Repeat chest x-ray ordered 3. Bronchiectasis, asthma, pulmonary hypertension: Patient was discharged on prednisone 40 mg daily and is continued with taper schedule. Continue bronchodilator, incentive spirometry, chest physiotherapy/PEP. 4 pancytopenia: Patient has pancytopenia, WBC count 2.3 thousand H&H and platelet count 1 26,000. This is similar to previous admission. Her white count has improved as it was 1.4 on 10/02/2019. 10/08: Normocytic normochromic anemia. Anemia work-up ordered. 5. Anxiety and depression: Patient on Paxil at home. She is also on Restoril at night. Started on lorazepam 0.5 mg every 8 hourly as needed for severe anxiety attack. 6. Migraine: Patient patient is on as needed acetaminophen and ibuprofen. 7. VTE prophylaxis: Moderate risk. On Lovenox 40 mg q. 12 hourly. Living will/advanced directive/end of life care: Patient does have living will or advanced directive. DNR CC arrest no intubation Microbiology Past 72 Hours 10/07/19 07:15 Sputum, Expectorated/Coughed Gram Stain - Final 10/07/19 07:15 Sputum, Expectorated/Coughed Respiratory Culture - Final Presumptive C albicans Mixed Orin 10/06/19 09:10 Blood Culture (Wb) - Right Hand Blood Culture - Preliminary No growth in 48 hours. 10/06/19 08:35 Blood Culture (Wb) - Left Forearm Blood Culture - Preliminary No growth in 48 hours. 10/06/19 19:25 Mucosa - Nasopharyngeal Respiratory Panel (PCR) - Final Laboratory Results 10/09/19 06:18: D-Dimer Quant (PE/DVT) 0.90 H* 10/09/19 06:18: Ferritin 428 H 10/09/19 06:20: Sodium 135 L, Potassium 4.1, Chloride 103, Carbon Dioxide 27.0, Anion Gap 5, BUN 10, Creatinine 1.12 H, Estim Creat Clear Calc 55.90, Est GFR (MDRD) Af Amer 64, Est GFR (MDRD) Non-Af 53 L, BUN/Creatinine Ratio 8.9 L, Glucose 95, Calcium 7.8 L, Total Bilirubin 0.70, AST 36, ALT 23, Alkaline Phosphatase 67, C-React Prot Ext Range 35.80 H, Total Protein 5.6 L, Albumin 2.4 L, Globulin 3.2, Albumin/Globulin Ratio 0.8 L10/09/19 06:20: WBC 3.1 L, RBC 2.82 L, Hgb 8.6 L, Hct 27.5 L, MCV 97.5 D, MCH 30.5, MCHC 31.3 L, RDW Std Deviation 54.5 H, RDW Coeff of Jaun 15.1 H, Plt Count 157, MPV 10.7, Immature Gran % (Auto) 1.000 H, Neut % (Auto) 75.9 H, Lymph % (Auto) 16.3 L, Bath % (Auto) 6.8, Eos % (Auto) 0.0, Baso % (Auto) 0.0, Absolute Neuts (auto) 2.3, Absolute Lymphs (auto) 0.50 L, Nucleated RBC % 1.0, Differential Comment , Diff Path Review Reviewed, Atypical Lymphocytes RARE, Platelet Estimate ADEQUATE, RBC Morphology TF, Anisocytosis 1+ Clinical Impression(s) from Imaging Studies Chest CTA 10/06/19 08:40 IMPRESSION: Patchy bilateral infiltrates as described. There is a preferential distribution towards the peripheral aspects of the lungs. Covid pneumonia should be ruled out. Inpatient E&M: 29019 Subs Hosp L2
--- NOTE | 2019-10-09 14:48 | EKG12_ITS ---
Test Reason : Blood Pressure : / mmHG Vent. Rate : 095 BPM Atrial Rate : 095 BPM P-R Int : 134 ms QRS Dur : 118 ms QT Int : 382 ms P-R-T Axes : 059 083 042 degrees QTc Int : 480 ms Normal sinus rhythm Low voltage QRS Right bundle branch block Abnormal ECG When compared with ECG of 01-OCT-2019 10:33, No significant change was found Confirmed by RADHA CLINTON, MG ([id number]), television news video editor CHRISS MORA ([id number]) on 10/13/2019 3:21:50 PM Referred By: MELISSA Confirmed By:MG GARCIA MD
--- NOTE | 2019-10-09 14:50 | RAD_ITS ---
STUDY: X-RAY CHEST REASON FOR EXAM: Female, 58 years old. COVID pneumonia, SOB, tachypnea TECHNIQUE: Single AP portable view of the chest. COMPARISON: Comparison is made with prior examination of October 01, 2019. FINDINGS: There now is evidence of bilateral patchy infiltrates worse in the left lung. Blunting of the left costophrenic angle. Normal size heart. Normal mediastinum and myriam. Normal visualized pulmonary arteries. Normal visualized aortic arch and descending thoracic aorta. Normal visualized thoracic spine. Normal visualized ribs, clavicles, and shoulders. There is no demonstrated abnormality of the visualized soft tissue structures of the upper abdomen. RAD/Chest 1 View (Portable) IMPRESSION: Bilateral patchy pulmonary infiltrates worse in the left lung. This is new as compared to prior study. Electronically Signed: Kamran Velazquez, at 15:30 EDT , Service support ,
[2019-10-09] MEDS: oxyCODONE 5 MG Tablet PO ×2 (15:39→21:09)
--- NOTE | 2019-10-09 16:04 | CASEMGMT ---
Social Work Referral from nursing as pt is displaying behavioral concerns. Phone call placed to pt. Pt agreeable to talk with social work program coordinator and openly shares feelings. Pt expressing that she is scared because she has many comorbidities and now has Covid and also that she is feeling depressed and missing her family. SW encouraged pt to express her feelings regarding isolation and loneliness. Encouraged pt to make phone calls to family and video chats however pt declines because she cries throughout visits and she does not want to upset her grandchildren. Pt also stating she has had issues with anxiety and depression for years and has seen a counselor at [facility]. SW inquired if pt would like to restart services or receive resources on other agencies available. Pt states she felt [facility] was very helpful and she knows how to get a hold of them if she would like to continue services. Discussed with pt other coping options. Pt stating that her [facility] is important to her and helpful in dealing with difficult situations. SW offered phone visit from the [facility] however pt denied stating she speaks with her iuss master analyst. SW encouraged pt to verbalize feelings and provided emotional support. Pt expressing frustration over medication changes. SW reminded pt to speak with nurse regarding concerns but SW would also notify nurse. Pt thanked SW for phone call and SW reminded pt SW will remain available throughout her stay if she would like to talk again. SIMON Helms updated on conversation and pt concerns about medication. BERNIE Andujar
[2019-10-09] MEDS: Paroxetine 20 MG Tablet 40 MG PO (21:08)
[2019-10-09] MEDS: Atorvastatin Calcium 80 MG Tablet PO (21:09)
[2019-10-09] MEDS: Temazepam 15 MG Capsule 30 MG PO (21:11)
[2019-10-10 02:31] VITALS: BP 95/68; PULSE 107; RESP 20; TEMP 37.9; O2SAT 94
[2019-10-10] MEDS: Acetaminophen 325 MG Tablet 650 MG PO ×2 (02:39→16:07)
[2019-10-10] MEDS: 0.9% Saline Lock 10 ML Syringe IV ×3 (02:39→21:16)
[2019-10-10] MEDS: oxyCODONE 5 MG Tablet PO ×3 (02:39→13:41)
--- NOTE | 2019-10-10 02:52 | NURSING ---
Patient reported that she had a bloody, loose stool. Stated that she flushed toilet and cleaned up the blood off of the toilet seat. This RN entered bathroom and saw no signs of smeared or dried blood on toilet seat. Asked patient to please not flush next time she has a BM.
[2019-10-10] MEDS: Dicyclomine 10 MG Capsule PO ×3 (05:55→15:19)
[2019-10-10] MEDS: LORazepam 0.5 MG Tablet PO ×2 (05:55→13:42)
[2019-10-10] MEDS: busPIRone 5 MG Tablet 10 MG PO ×3 (05:55→21:13)
[2019-10-10 06:10] LABS: Absolute Lymphocyte Count 1.12 X10^3/uL (0.83-4.51); Absolute Neutrophil Count 3.2 X10^3/uL (2.0-7.7); Basophil# 0.02 X10^3/uL; Basophil% 0.4 % (0-1); Eosinophil# 0.01 X10^3/uL; Eosinophils% 0.2 % (0-5); Hemoglobin 9.9 g/dL (12.0-15.0); Lymphocyte # 1.12 X10^3/ul (4.0); Lymphocyte % 24.1 % (19-41); Mean Corpuscular Hgb 30.9 pg (27.0-32.0); Mean Corpuscular Volume 103.1 fL (81-99); Monocyte# 0.31 X10^3/uL; Monocyte% 6.7 % (0-10); NRBC Flagged by Analyzer 0.6 % (0-5); Neutrophil # 3.15 X10^3/uL (2.7-7.7); Neutrophil % 67.7 % (47-70); POSITIVE MORPHOLOGY YES; Platelet Count 202 K/mm3 (150-450); RBC Distribution Width CV 15.5 % (11.6-14.6); RBC Distribution Width SD 58.9 fl (35.1-43.9); RET-HE 22.4 pg (30-35); Reticulocyte Count 1.61 % (0.5-1.5); White Blood Count 4.7 K/mm3 (4.4-11.0)
[2019-10-10 06:12] LABS: Differential Indicated SCAN CRITERIA MET
[2019-10-10 06:30] LABS: Atypical Lymphocyte RARE %; Differential Comment SCANNED; Ovalocyte RARE; Reactive Lymphocyte 1+
--- NOTE | 2019-10-10 06:31 | NURSING ---
Pt reported to this RN having bleeding from rectum, states she has never had hemorrhoids and that she sometimes has bleeding from her chronic colitis. Says this has been happening for about a week. Also states that if something is starting she wants it taken care of before she leaves the hospital. This RN entered bathroom (pt had been informed by previous RN not to flush if she had any other bloody stools) and found no blood in the toilet or on the toilet seat, only blood was spotting on a piece of toilet paper, 2 drops less than 0.5cm each. Pt informed to let RN know if bleeding increases.
[2019-10-10 06:50] LABS: ALB/GLOB Ratio 0.7 RATIO (0.9-2.4); AST(SGOT) 36 U/L (15-37); Alanine Aminotransfer ALT/SGPT 27 U/L (13-56); Albumin, Serum 2.5 g/dL (3.2-5.0); Alkaline Phosphatase 77 U/L (45-117); Anion Gap 4 (5-15); BUN 9 mg/dL (7-18); BUN/Creat Ratio 8.3 RATIO (10-20); Calcium,Total 8.6 mg/dL (8.5-10.1); Chloride 105 mmol/L (98-107); Creatinine, Serum 1.08 mg/dL (0.55-1.02); EST Glomerular Filtration Rate 55 mL/min (>60); Est Glom Filt Rate - Afr Amer 67 mL/min (>60); Estimated Creatinine Clearance 57.98 ml/min; Globulin 3.6 g/dL (2.2-4.2); Glucose 105 mg/dL (74-106); Iron 30 ug/dL (50-170); Iron Binding Capacity,Total 182 ug/dL (250-450); PERCENT IRON SATURATION 16.5 % (15.0-55.0); Potassium 4.7 mmol/L (3.5-5.1); Protein, Total 6.1 g/dL (6.4-8.2); Sodium Level 137 mmol/L (136-145)
[2019-10-10 06:54] LABS: Vitamin B12 468 pg/mL (211-911)
[2019-10-10] MEDS: Enoxaparin 120 MG/0.8 ML Syringe SC ×2 (07:47→21:14)
[2019-10-10] MEDS: Furosemide 40 MG Tablet PO (07:48)
[2019-10-10] MEDS: predniSONE 10 MG Tablet 30 MG PO (07:48)
[2019-10-10] MEDS: guaiFENesin 1,200 MG Tablet 1200 MG PO ×2 (07:49→21:15)
[2019-10-10] MEDS: Aspirin 81 MG TAB.CHEW PO (07:49)
[2019-10-10] MEDS: Pantoprazole Sodium 40 MG Tablet PO (07:49)
[2019-10-10 07:57] VITALS: BP 104/67; PULSE 94; RESP 16; TEMP 37.2; O2SAT 94
--- NOTE | 2019-10-10 10:12 | PN_ITS ---
Reason for Visit: COVID-19 pneumonia Objective: Seen and examined Overall, patient respiratory status is improving. T-max 100.2 at 2:30 AM, low- grade fever. Temperature profile improving. Heart rate in 90s. No tachypnea pulse ox 94% on 3 L of oxygen She complained of lump in the posterior medial aspect of right thigh. It is n onpainful. Patient states it appears and disappears On exam General: Alert, Oriented x3, Cooperative. HEENT: Atraumatic, PERRLA, EOMI, Normocephalic Neck: Supple, No JVD, Negative Carotid Bruits Lungs: No wheeze, No rales, Diminished, mild expiratory rhonchi Cardiovascular: Regular rate, Regular Rhythm, Normal S1, Normal S2, No murmurs Abdomen: Bowel Sounds Present, Soft, Non Tender, Non-Distended Extremities: Capillary Refill Less than 3 Seconds, mild lower leg edema Skin: No rashes, No breakdown. Fatty lump in the posterior medial aspect of right upper thigh. Examined in the presence of nurseMandy. It is nontender, mobile, not adherent to the skin. Most likely, benign tumor lipoma. Musculoskeletal: No Tenderness to Palpation of Joints or Extremities, Arthritic Changes Neurological: Cranial nerves II-XII grossly intact, Deep Tendon Reflexes 2+/4 and Symmetrical, Neuro grossly intact Psych/Mental Status: Anxious with panic attack, Depressed. Vitals/I&O's: Vital Signs Temp Pulse Resp BP Pulse Ox 98.9 F 94 16 104/67 94 10/10/19 07:57 10/10/19 07:57 10/10/19 07:57 10/10/19 07:57 10/10/19 07:57 Oxygen Flow Rate (L/min) 3 Oxygen Delivery Method Nasal Cannula Weight: 258 lb 13.163 oz Body Mass Index (BMI) 39.3 Intake and Output for Last 24 Hours 10/08/19 10/09/19 10/10/19 23:59 23:59 23:59 Intake Total 988.75 / 988.75 2930 / 2930 2049 Balance 988.75 / 988.75 2930 / 2930 2049 Microbiology Past 72 Hours 10/07/19 07:15 Sputum, Expectorated/Coughed Gram Stain - Final 10/07/19 07:15 Sputum, Expectorated/Coughed Respiratory Culture - Final Presumptive C albicans Mixed Orin 10/06/19 09:10 Blood Culture (Wb) - Right Hand Blood Culture - Preliminary No growth in 48 hours. 10/06/19 08:35 Blood Culture (Wb) - Left Forearm Blood Culture - Preliminary No growth in 48 hours. 10/06/19 19:25 Mucosa - Nasopharyngeal Respiratory Panel (PCR) - Final Laboratory Results 10/09/19 06:20: Diff Path Review Reviewed 10/10/19 05:57: WBC 4.7, RBC 3.20 L, Hgb 9.9 L, Hct 33.0 L, MCV 103.1 H D, MCH 30.9, MCHC 30.0 L, RDW Std Deviation 58.9 H, RDW Coeff of Jaun 15.5 H, Plt Count 202, MPV 11.0, Immature Gran % (Auto) 0.900, Neut % (Auto) 67.7, Lymph % (Auto) 24.1, Meade % (Auto) 6.7, Eos % (Auto) 0.2, Baso % (Auto) 0.4, Absolute Neuts (auto) 3.2, Absolute Lymphs (auto) 1.12, Nucleated RBC % 0.6, Differential Comment SCANNED, Atypical Lymphocytes RARE, Reactive Lymphocytes 1+, Ovalocytes RARE, Retic Count 1.61 H, Immature Retic Fraction 15.90, Retic Hgb Equivalent 22.4 L 10/10/19 05:57: Sodium 137, Potassium 4.7, Chloride 105, Carbon Dioxide 28.0, Anion Gap 4 L, BUN 9, Creatinine 1.08 H, Estim Creat Clear Calc 57.98, Est GFR (MDRD) Af Amer 67, Est GFR (MDRD) Non-Af 55 L, BUN/Creatinine Ratio 8.3 L, Glucose 105, Calcium 8.6, Iron 30 L, TIBC 182 L, Iron Saturation 16.5, Total Bilirubin 0.60, AST 36, ALT 27, Alkaline Phosphatase 77, Total Protein 6.1 L, Albumin 2.5 L, Globulin 3.6, Albumin/Globulin Ratio 0.7 L, Folate 12.60 10/10/19 05:57: Vitamin B12 468 10/10/19 05:57: Haptoglobin Pending Current Medications Acetaminophen (Tylenol) 650 mg PO Q6H PRN PRN PRN Reason: Pain Score 1-10/Temp > 100.7 F Last Admin: 10/10/19 02:39 Dose: 650 mg Documented by: Albuterol Sulfate (Ventolin Hfa (Sp)) 2 puff INHALATION Q4H PRN PRN PRN Reason: sob Last Admin: 10/07/19 01:49 Dose: 2 puff Documented by: Aspirin (Aspirin, Baby) 81 mg PO DAILY [facility] Last Admin: 10/10/19 07:49 Dose: 81 mg Documented by: Atorvastatin Calcium (Lipitor) 80 mg PO QHS [facility] Last Admin: 10/09/19 21:09 Dose: 80 mg Documented by: Buspirone HCl (Buspar) 10 mg PO TID [facility] Last Admin: 10/10/19 05:55 Dose: 10 mg Documented by: Dextrose (D50w Syringe) 0 gm IV X1 PRN; Protocol PRN Reason: Hypoglycemia Dicyclomine HCl (Bentyl) 10 mg PO TIDAC [facility] Last Admin: 10/10/19 05:55 Dose: 10 mg Documented by: Enoxaparin Sodium (Lovenox) 120 mg SC BID [facility] Last Admin: 10/10/19 07:47 Dose: 120 mg Documented by: Furosemide (Lasix) 40 mg PO DAILY [facility] Last Admin: 10/10/19 07:48 Dose: 40 mg Documented by: Glucagon () 1 mg IM .X1 PRN PRN Reason: Hypoglycemia Guaifenesin (Mucinex) 1,200 mg PO BID [facility] Last Admin: 10/10/19 07:49 Dose: 1,200 mg Documented by: Sodium Chloride () 250 mls @ 15 mls/hr IV .[id number] PRN PRN Reason: Saline Flush Ceftriaxone Sodium 2 gm/ (Sodium Chloride) 50 mls @ 100 mls/hr IV Q24 [facility] Stop: 10/13/19 13:53 Last Infusion: 10/10/19 08:32 Dose: Infused Documented by: Ibuprofen (Motrin) 400 mg PO Q6H PRN PRN PRN Reason: pain 1-10/10 Lorazepam (Ativan) 0.5 mg PO Q8H PRN PRN PRN Reason: severe anxiety Last Admin: 10/10/19 05:55 Dose: 0.5 mg Documented by: Miscellaneous Information (Pocket Chamber) 1 each INHALATION Q4H PRN PRN Nitroglycerin (Nitrostat) 0.4 mg SUBLINGUAL Q5M PRN PRN Reason: CARDIAC/CHEST PAIN Oxycodone HCl (Oxyir) 5 mg PO Q4H PRN PRN PRN Reason: Pain Score 4-5/10 Last Admin: 10/10/19 07:47 Dose: 5 mg Documented by: Pantoprazole Sodium (Protonix) 40 mg PO DAILY [facility] Last Admin: 10/10/19 07:49 Dose: 40 mg Documented by: Paroxetine HCl (Paxil) 40 mg PO QHS [facility] Last Admin: 10/09/19 21:08 Dose: 40 mg Documented by: Potassium Chloride (K-Dur) 60 meq PO BID [facility] Last Admin: 10/10/19 07:49 Dose: 60 meq Documented by: Prednisone () 30 mg PO DAILY@0800 [facility]; Taper Stop: 10/19/19 07:59 Last Admin: 10/10/19 07:48 Dose: 30 mg Documented by: Prochlorperazine Edisylate (Compazine Iv) 5 mg IV Q4H PRN PRN PRN Reason: Breakthrough nausea/vomiting Promethazine HCl (Phenergan) 12.5 mg IV Q6H PRN PRN PRN Reason: Breakthrough nausea/vomiting Last Admin: 10/09/19 03:50 Dose: 12.5 mg Documented by: Senna/Docusate Sodium (Senokot-S, Misti-Colace) 2 tablet PO BID PRN PRN PRN Reason: Constipation Last Admin: 10/08/19 20:48 Dose: 2 tablet Documented by: Sodium Chloride () 10 - 40 ml IV UD PRN PRN Reason: SALINE FLUSH Last Admin: 10/10/19 02:39 Dose: 10 ml Documented by: Temazepam (Restoril) 30 mg PO QHS [facility] Last Admin: 10/09/19 21:11 Dose: 30 mg Documented by: STROKE Vital Signs/Narrative: Vital Signs Temp Pulse Resp BP Pulse Ox 10/10/19 07:57 98.9 F 94 16 104/67 94 Medical Necessity - Tobacco Use Smoking Status: Former smoker Assessment/Plan All Active Problems (Last Updated 10/04/19 @ 10:[address] Blayne Santana, DO) Sepsis (Acute) Respiratory tract infection due to COVID-19 virus (Acute) Endocarditis (Resolved) Shortness of breath (Acute) Pneumonia (Acute) Bronchitis (Acute) History of tubal ligation (Resolved) History of umbilical hernia (Resolved) History of appendectomy (Resolved) History of hysterectomy (Resolved) History of cholecystectomy (Resolved) History of diarrhea (Resolved) Sepsis (Resolved) The patient is a 58 year old F with multiple comorbidities as listed above including obstructive sleep apnea and asthma, last admission 10/01/2019- 10/04/2019 came back to ER with progressive worsening of shortness of breath and hypoxia, pulse ox dropped to 70% at home. In ER, temperature 102.3 ?F, heart rate 124/min, respiratory rate 26 to 30/min and pulse ox 95% on 2 L of oxygen. [] In ED, she is leukopenic, normocytic 2.3 thousand, H&H 11/35.5, platelet count 126 similar to labs during previous admission. CTPA was done in ER and was independently reviewed. It is negative for PE but has bilateral patchy infiltrate in the peripheral aspect suggestive of COVID pneumonia. During previous admission, she was tested positive for COVID-19. Patient was started on steroids and discharged on Levaquin and prednisone. 1. Sepsis with acute respiratory insufficiency secondary to COVID 19 pneumonia present on admission: Patient is being admitted on the floor. She recently had urinary antigens are negative on 09/30, blood cultures are negative for 5 days. Rapid group A strep treated throat was negative. Sputum culture was positive for presumptive Kimberly albicans and mixed orin. Started on IV Rocephin and Zithromax. Blood cultures x2 sent from ER. MRSA nasal screen and sputum culture ordered. Lactic acid normal. 10/06: Low-grade fever. Continue Rocephin. Zithromax discontinued as patient also had Zithromax during previous admission and had 2 doses this admission. D- dimer 1.9, started on therapeutic dose of Lovenox. Ferritin and CRP elevated. Discussed with ID. 10/07: Patient is still spiking fever. On Rocephin. Blood culture negative for more than 48 hours. Sputum culture appears normal respiratory orin. 10/08: WBC count improved. Still has anemia and leukopenia. Platelet count 1 57,000. Normocytic normochromic anemia probably secondary to anticoagulant. 10/09: Leukocyte count improved. H&H improved 9.9-33. Reticulocyte count suggesting slightly reactive suggesting reactive bone marrow. Iron studies shows anemia of chronic disease with low iron and TIBC. Ferritin elevated. 2. COVID-19 pneumonia: CTPA was done in ER and was independently reviewed. It is negative for PE but has bilateral patchy infiltrate in the peripheral aspect suggestive of COVID pneumonia. LDH and pro calcitonin ordered. 10/06: Procalcitonin 0.17. Therefore risk for progressing to severe sepsis or septic shock low. LDH 377. 10/08: D-dimer, CRP and ferritin improved. Gram stain of history and culture shows mixed orin, presumptive Kimberly. Respiratory panel is negative. Repeat chest x-ray ordered 10/09: Chest x-ray individually reviewed. I agree with report bilateral patchy pulmonary infiltrate worse on the left lung peripherally. CT scan reviewed. Clinically she is improving. 3. Bronchiectasis, asthma, pulmonary hypertension: Patient was discharged on prednisone 40 mg daily and is continued with taper schedule. Continue bronchodilator, incentive spirometry, chest physiotherapy/PEP. 4 pancytopenia: Patient has pancytopenia, WBC count 2.3 thousand H&H and platelet count 1 26,000. This is similar to previous admission. Her white count has improved as it was 1.4 on 10/02/2019. 10/08: Normocytic normochromic anemia. Anemia work-up ordered. 5. Anxiety and depression: Patient on Paxil at home. She is also on Restoril at night. Started on lorazepam 0.5 mg every 8 hourly as needed for severe anxiety attack. 6. Migraine: Patient patient is on as needed acetaminophen and ibuprofen. 7. VTE prophylaxis: Moderate risk. On Lovenox 40 mg q. 12 hourly. Living will/advanced directive/end of life care: Patient does have living will or advanced directive. DNR CC arrest no intubation Microbiology Past 72 Hours 10/07/19 07:15 Sputum, Expectorated/Coughed Gram Stain - Final 10/07/19 07:15 Sputum, Expectorated/Coughed Respiratory Culture - Final Presumptive C albicans Mixed Orin 10/06/19 09:10 Blood Culture (Wb) - Right Hand Blood Culture - Preliminary No growth in 48 hours. 10/06/19 08:35 Blood Culture (Wb) - Left Forearm Blood Culture - Preliminary No growth in 48 hours. Laboratory Results 10/10/19 05:57: WBC 4.7, RBC 3.20 L, Hgb 9.9 L, Hct 33.0 L, MCV 103.1 H D, MCH 30.9, MCHC 30.0 L, RDW Std Deviation 58.9 H, RDW Coeff of Jaun 15.5 H, Plt Count 202, MPV 11.0, Immature Gran % (Auto) 0.900, Neut % (Auto) 67.7, Lymph % (Auto) 24.1, Meade % (Auto) 6.7, Eos % (Auto) 0.2, Baso % (Auto) 0.4, Absolute Neuts (auto) 3.2, Absolute Lymphs (auto) 1.12, Nucleated RBC % 0.6, Differential Comment SCANNED, Atypical Lymphocytes RARE, Reactive Lymphocytes 1+, Ovalocytes RARE, Retic Count 1.61 H, Immature Retic Fraction 15.90, Retic Hgb Equivalent 22.4 L 10/10/19 05:57: Sodium 137, Potassium 4.7, Chloride 105, Carbon Dioxide 28.0, Anion Gap 4 L, BUN 9, Creatinine 1.08 H, Estim Creat Clear Calc 57.98, Est GFR (MDRD) Af Amer 67, Est GFR (MDRD) Non-Af 55 L, BUN/Creatinine Ratio 8.3 L, Glucose 105, Calcium 8.6, Iron 30 L, TIBC 182 L, Iron Saturation 16.5, Total Bilirubin 0.60, AST 36, ALT 27, Alkaline Phosphatase 77, Total Protein 6.1 L, Albumin 2.5 L, Globulin 3.6, Albumin/Globulin Ratio 0.7 L, Folate 12.60 10/10/19 05:57: Vitamin B12 468 10/10/19 05:57: Haptoglobin Pending Clinical Impression(s) from Imaging Studies Chest CTA 10/06/19 08:40 IMPRESSION: Patchy bilateral infiltrates as described. There is a preferential distribution towards the peripheral aspects of the lungs. Covid pneumonia should be ruled out. Chest X-Ray 10/09/19 14:50 IMPRESSION: Bilateral patchy pulmonary infiltrates worse in the left lung. This is new as compared to prior study. Inpatient E&M: 07662 Subs Hosp L2
[2019-10-10 13:41] VITALS: O2SAT 94
[2019-10-10 13:46] VITALS: BP 139/88; PULSE 105; RESP 16; TEMP 37.3; O2SAT 96
[2019-10-10] MEDS: proMETHazine 25 MG/ML Syringe 12.5 MG IV (16:07)
[2019-10-10 21:05] VITALS: BP 121/68; PULSE 106; RESP 18; TEMP 37.5; O2SAT 94
[2019-10-10] MEDS: Atorvastatin Calcium 80 MG Tablet PO (21:14)
[2019-10-10] MEDS: Paroxetine 20 MG Tablet 40 MG PO (21:15)
[2019-10-10] MEDS: Temazepam 15 MG Capsule 30 MG PO (21:16)
[2019-10-11 03:27] VITALS: BP 118/69; PULSE 106; RESP 18; TEMP 37.1; O2SAT 95
[2019-10-11] MEDS: Acetaminophen 325 MG Tablet 650 MG PO (03:37)
[2019-10-11] MEDS: oxyCODONE 5 MG Tablet PO (03:37)
[2019-10-11] MEDS: busPIRone 5 MG Tablet 10 MG PO (06:36)
[2019-10-11] MEDS: Dicyclomine 10 MG Capsule PO ×2 (06:36→10:44)
[2019-10-11 07:12] LABS: Absolute Lymphocyte Count 1.63 X10^3/uL (0.83-4.51); Absolute Neutrophil Count 2.2 X10^3/uL (2.0-7.7); Basophil# 0.01 X10^3/uL; Basophil% 0.2 % (0-1); Differential Indicated SCAN CRITERIA MET; Eosinophil# 0.03 X10^3/uL; Eosinophils% 0.7 % (0-5); Hematocrit 30.2 % (37-47); Hemoglobin 8.9 g/dL (12.0-15.0); Lymphocyte # 1.63 X10^3/ul (4.0); Lymphocyte % 39.3 % (19-41); Mean Corp Hgb Conc 29.5 g/dL (32-36); Mean Corpuscular Hgb 30.9 pg (27.0-32.0); Mean Corpuscular Volume 104.9 fL (81-99); Mean Platelet Vol. 10.4 fl (6.2-12.0); Monocyte# 0.27 X10^3/uL; Monocyte% 6.5 % (0-10); NRBC Flagged by Analyzer 1.4 % (0-5); Neutrophil # 2.15 X10^3/uL (2.7-7.7); Neutrophil % 51.9 % (47-70); POSITIVE MORPHOLOGY YES; Platelet Count 197 K/mm3 (150-450); RBC Distribution Width CV 15.2 % (11.6-14.6); RBC Distribution Width SD 58.5 fl (35.1-43.9); Red Blood Count 2.88 M/mm3 (4.2-5.4); White Blood Count 4.2 K/mm3 (4.4-11.0)
--- NOTE | 2019-10-11 07:24 | NURSING ---
Addendum entered by Suzie Welch 10/11/19 09:03: Patient states that she doesn't know if active directory administrator notified the doctor regarding information but states, I sure hope not. I want both my and daughter off of my list to receive any information. I should allow my sister to be the only one to have information, that would really make them mad. Pt would not tell this RN what was relayed but states it was something that happened 22 years ago and that they are trying to embarrass her. A few minutes later she asked this RN to ask doctor if she could have order for morphine for headache. She states, I know I am going home tomorrow, I know I am not going home on IV meds. Pt states that she isn't sure what doctor is planning to do but that she really wants to stay another night. She reports it is due to her cough. Pt had minimal coughing while this RN in room. Pt up to bathroom herself, moving chairs, dressed herself and moving her suitcase. Pt continues to be angry at family. Dr. Xiao notified of all information. Patient notified Dr. Xiao that she would be ready to go today. Pt on home O2 at 2L and spo2 95%. Addendum entered by Suzie Welch 10/11/19 08:22: Pt requesting for Seth Felder and Karely Morris to NOT receive any information. Upset they relayed info to active directory administrator, of something that happened 22 yrs ago. Angry Original Note: SIMON Griffith reports that during the night patient's called in because pt not answering her phone. notified Gladis that patient has had issues with abusing narcotics in the past and wanted to be sure staff was aware.
[2019-10-11 07:34] LABS: Differential Comment SCANNED; Reactive Lymphocyte 1+
[2019-10-11 07:38] LABS: ALB/GLOB Ratio 0.8 RATIO (0.9-2.4); AST(SGOT) 29 U/L (15-37); Alanine Aminotransfer ALT/SGPT 25 U/L (13-56); Albumin, Serum 2.4 g/dL (3.2-5.0); Alkaline Phosphatase 77 U/L (45-117); Anion Gap 4 (5-15); BUN 10 mg/dL (7-18); BUN/Creat Ratio 11.5 RATIO (10-20); Calcium,Total 8.2 mg/dL (8.5-10.1); Chloride 109 mmol/L (98-107); Creatinine, Serum 0.87 mg/dL (0.55-1.02); EST Glomerular Filtration Rate 71 mL/min (>60); Est Glom Filt Rate - Afr Amer 86 mL/min (>60); Estimated Creatinine Clearance 71.97 ml/min; Globulin 3.2 g/dL (2.2-4.2); Glucose 88 mg/dL (74-106); Potassium 5.2 mmol/L (3.5-5.1); Protein, Total 5.6 g/dL (6.4-8.2); Sodium Level 144 mmol/L (136-145)
[2019-10-11 08:14] VITALS: BP 140/80; PULSE 78; RESP 16; TEMP 36.8; O2SAT 95
[2019-10-11] MEDS: predniSONE 10 MG Tablet 30 MG PO (08:20)
[2019-10-11] MEDS: LORazepam 0.5 MG Tablet PO (08:20)
[2019-10-11] MEDS: Furosemide 40 MG Tablet PO (09:18)
[2019-10-11] MEDS: guaiFENesin 1,200 MG Tablet 1200 MG PO (09:18)
[2019-10-11] MEDS: Aspirin 81 MG TAB.CHEW PO (09:18)
[2019-10-11] MEDS: Enoxaparin 120 MG/0.8 ML Syringe SC (09:18)
[2019-10-11] MEDS: Pantoprazole Sodium 40 MG Tablet PO (09:18)
[2019-10-11] MEDS: 0.9% Saline Lock 10 ML Syringe IV (09:19)
[2019-10-11 09:45] VITALS: O2SAT 95
--- NOTE | 2019-10-11 11:27 | PCM.DC ---
You will use the following diet at home:: Cardiac Your food should be the consistency of: Regular Your liquids should be the consistency of: Regular/Thin Discharge Activity: May Not Drive Weight Bearing Status: Weight bearing as tolerated Call your doctor if you observe: Fever of 101 or Higher, Inability to urinate, Inability to have a bowel movement, Shortness of breath, Dizziness, Fainting spells, Swelling in the ankles, Chest pain, Prolonged hiccoughing, Increased palpitations (irregular heartbeat), Calf discomfort, Uncontrolled pain Allergies/Adverse Reactions: Allergies Penicillins Allergy (Verified 10/06/19 12:12) Hives DUST Allergy (Uncoded 10/06/19 12:12) itchy eyes SEASONAL Allergy (Uncoded 10/06/19 12:12) itchy eyes Medications to take at Discharge Albuterol Inhaler [Ventolin Hfa] 1 - 2 puff INHALATION Q4H PRN PRN 12/09/18 Pantoprazole Sodium [Protonix] 40 mg PO DAILY 12/09/18 Rosuvastatin Calcium 40 mg PO QHS 12/09/18 Acetaminophen [Tylenol Tablet] 650 mg PO Q6H PRN PRN tab 12/13/18 Temazepam [Restoril] 30 mg PO QHS PRN PRN #4 cap 01/11/19 PEP device 0 .ROUTE .MEDSUPPLY #1 ea 05/12/19 Furosemide 40 mg PO DAILY 10/01/19 Paxil 20 mg PO QHS 10/01/19 Aspirin 81 mg PO DAILY #1 tab.chew 10/04/19 Dicyclomine HCl [Bentyl] 10 mg PO TIDAC #30 cap 10/04/19 Ibuprofen [Motrin] 600 mg PO Q6H PRN PRN tab 10/04/19 Ondansetron HCl [Zofran] 4 mg PO DAILY PRN PRN #0 10/04/19 Prochlorperazine Maleate [Compazine] 10 mg PO Q8H PRN #20 tab 10/04/19 Guaifenesin [Mucinex] 1,200 mg PO BID #14 tab 10/11/19 Potassium Chloride [K-Dur] 20 meq PO BID #0 10/11/19 busPIRone [Buspar] 10 mg PO BID PRN PRN #20 tab 10/11/19 levoFLOXacin tablet [Levaquin tablet] 750 mg PO DAILY #1 tab 10/11/19 The following prescriptions were given: busPIRone [Buspar] 10 mg PO BID PRN PRN #20 tab PRN Reason: Anxiety Transmission Status: Pending to [facility] levoFLOXacin tablet [Levaquin tablet] 750 mg PO DAILY #1 tab Transmission Status: Pending to [facility] [facility] Guaifenesin [Mucinex] 1,200 mg PO BID #14 tab Transmission Status: Pending to [facility] [place] [facility] Primary Care Physician: Karl Moran MD [Primary Care Provider] - Please follow up with your Primary Care Physician in: [place] 2 weeks Test Results: Test results from this visit will be discussed in further detail at your follow-up appointment, if applicable. Please Follow Up With: Davian Sung MD When: in 2 weeks if fever Please Follow Up With: Michael Romero MD When: for Headache, possible MIGRAINE, in 2-3 weeks
--- NOTE | 2019-10-11 11:30 | DS.PCM_ITS ---
Discharge Date and Diagnosis Date of Admission: 10/06/19 Date of Discharge: 10/11/19 - Primary Discharge Diagnosis Sepsis secondary to COVID-19 bilateral pneumonia - Secondary Discharge Diagnosis Chronic Problems (Last Updated 10/04/19 @ 10:[address] Blayne Santana, DO) Pancytopenia (Chronic) Chronic renal insufficiency, stage I (Chronic) Abdominal pain (Chronic) Gastritis (Chronic) Restrictive lung disease (Chronic) Colitis (Chronic) Osteoarthritis (Chronic) Chronic renal failure (Chronic) Depression (Chronic) GENNARO (obstructive sleep apnea) (Chronic) Asthma (Chronic) Gastroesophageal reflux disease (Chronic) Hypertension (Chronic) Colitis with rectal bleeding (Chronic) Respiratory failure with hypoxia (Chronic) Respiratory insufficiency (Chronic) Anemia (Chronic) Abnormal liver CT (Chronic) hemangioma Leukopenia (Chronic) Thrombocytopenia (Chronic) Idiopathic right ventricular dilation (Chronic) Bronchiectasis (Chronic) HLD (hyperlipidemia) (Chronic) Morbid obesity (Chronic) Anxiety (Chronic) Arthritis (Chronic) Hypertension (Chronic) Hospital Course and Treatment Operations: None Summary of Care Provided: [] The patient is a 58 year old F with multiple comorbidities as listed above including obstructive sleep apnea and asthma, last admission 10/01/2019- 10/04/2019 came back to ER with progressive worsening of shortness of breath and hypoxia, pulse ox dropped to 70% at home. In ER, temperature 102.3 ?F, heart rate 124/min, respiratory rate 26 to 30/min and pulse ox 95% on 2 L of oxygen. [] In ED, she is leukopenic, normocytic 2.3 thousand, H&H 11/35.5, platelet count 126 similar to labs during previous admission. CTPA was done in ER and was independently reviewed. It is negative for PE but has bilateral patchy infiltrate in the peripheral aspect suggestive of COVID pneumonia. During previous admission, she was tested positive for COVID-19. Patient was started on steroids and discharged on Levaquin and prednisone. 1. Sepsis with acute respiratory insufficiency on chronic hypoxic respiratory failure (on 2 L of home oxygen during the night) secondary to COVID 19 pneumonia present on admission: Patient is being admitted on the floor. She recently had patient antigens are negative on 09/30, blood cultures are negative for 5 days. Rapid group A strep treated throat was negative. Sputum culture was positive for presumptive Kimberly albicans and mixed orin. Started on IV Rocephin and Zithromax. Lactic acid normal. Discussed with ID. As d-dimer was high 1.9 started on therapeutic dose of Lovenox although CTPA was negative for PE. Over hospital course, inflammatory markers ferritin and CRP were followed and showed improvement trend. Presumptive Kimberly albicans x2- for more than 48 hours. Procalcitonin 0.17. Respiratory panel negative. Zithromax was later discontinued. 2. pancytopenia, leukopenia, neutropenia, lymphocytopenia, normocytic normochromic anemia and thrombocytopenia possible secondary to COVID-19 disease: Leukocytopenia probably secondary to COVID-19 pneumonia. H&H remained stable between 9 to 10 g% iron studies shows anemia of chronic disease with low iron and TIBC. Ferritin elevated. Reticulocyte count suggesting slightly reactive suggesting reactive bone marrow. 2. COVID-19 pneumonia: CTPA was done in ER and was independently reviewed. It is negative for PE but has bilateral patchy infiltrate in the peripheral aspect suggestive of COVID pneumonia. LDH and pro calcitonin ordered. Chest x-ray reported bilateral patchy pulmonary infiltrate worse on the left lung peripherally. CT scan reviewed. Initially, patient oxygen requirement, tachypnea and shortness of breath improved. Discussed with ID and patient requires Levaquin 750 mg 1 more tablet as she already had 9 days of antibiotic during this 2 hospital courses between 10/01/2019 TO 10/11/2019 3. Bronchiectasis, asthma, pulmonary hypertension: Patient was discharged on prednisone 40 mg daily and is continued with taper schedule. Continue bronchodilator, incentive spirometry, chest physiotherapy/PEP. Discharged on tapering dose of prednisone 4. Anxiety and depression: Patient on Paxil at home. She is also on Restoril at night. Started on lorazepam 0.5 mg every 8 hourly as needed for severe anxiety attack. Patient has severe anxiety and depression during hospital course. On her request, buspirone 10 mg twice daily PRN total 20 tablets and Restoril 30 mg nightly as needed total 7 tablets were given. OARSS reviewed and she has history of opioid prescription, benzodiazepines from different prescribers. Advised to follow-up with PCP. Advised to follow-up with psychiatrist 5. Migraine: Patient patient is on as needed acetaminophen and ibuprofen. Patient was referred to neurologist Dr. Romero for headache possible migraine headache 6. VTE prophylaxis: Moderate risk. On Lovenox 40 mg q. 12 hourly. Living will/advanced directive/end of life care: Patient does have living will or advanced directive. DNR CC arrest no intubation Discharge medication reconciliation done. Discharge follow-up instructions completed. Discharge process discussed with the patient and all questions were answered to patient's satisfaction. Total time spent, exact 35 minutes on discharge meds reconciliation, examination, coordination of care with nurses and ancillary staff, review of imaging and blood test and discussion with the patient on follow-up instructions Subjective: Seen and examined. T-max 100.2 Fahrenheit about 2 AM, low-grade fever. Heart rate 78/min patient oxygen required improved from 3 L to liter, that is her baseline. No tachypnea. Patient overall looks good and no shortness of breath, chest tightness. Has dry cough. Objective: General: Alert, Oriented x3, Cooperative. HEENT: Atraumatic, PERRLA, EOMI, Normocephalic Neck: Supple, No JVD, Negative Carotid Bruits Lungs: No wheeze, No rales, air entry diminished in bilateral lung bases. Morbid obesity. Cardiovascular: Regular rate, Regular Rhythm, Normal S1, Normal S2, No murmurs Abdomen: Bowel Sounds Present, Soft, Non Tender, Non-Distended Extremities: Capillary Refill Less than 3 Seconds, mild lower leg edema Skin: No rashes, No breakdown. Fatty lump in the posterior medial aspect of rig ht upper thigh. Most likely, benign tumor lipoma. Musculoskeletal: No Tenderness to Palpation of Joints or Extremities, Arthritic Changes Neurological: Cranial nerves II-XII grossly intact, Deep Tendon Reflexes 2+/4 and Symmetrical, Neuro grossly intact Psych/Mental Status: Anxious with panic attack, Depressed. - Physical Exam Vitals/I&O's: Vital Signs Temp Pulse Resp BP Pulse Ox 98.2 F 78 16 140/80 H 95 10/11/19 08:14 10/11/19 08:14 10/11/19 08:14 10/11/19 08:14 10/11/19 09:45 Oxygen Flow Rate (L/min) 2 Oxygen Delivery Method Nasal Cannula Weight: 258 lb 13.163 oz Body Mass Index (BMI) 39.3 Intake and Output for Last 24 Hours 10/09/19 10/10/19 10/11/19 23:59 23:59 23:59 Intake Total 2930 / 2930 3000 / 3400 1065.50 / 1065.50 Balance 2930 / 2930 3000 / 3400 1065.50 / 1065.50 Microbiology Past 72 Hours 10/06/19 09:10 Blood Culture (Wb) - Right Hand Blood Culture - Final No growth in 5 days. 10/06/19 08:35 Blood Culture (Wb) - Left Forearm Blood Culture - Final No growth in 5 days. 10/07/19 07:15 Sputum, Expectorated/Coughed Gram Stain - Final 10/07/19 07:15 Sputum, Expectorated/Coughed Respiratory Culture - Final Presumptive C albicans Mixed Orin Laboratory Results 10/11/19 07:05: Sodium 144, Potassium 5.2 H, Chloride 109 H, Carbon Dioxide 31.0, Anion Gap 4 L, BUN 10, Creatinine 0.87, Estim Creat Clear Calc 71.97, Est GFR (MDRD) Af Amer 86, Est GFR (MDRD) Non-Af 71, BUN/Creatinine Ratio 11.5, Glucose 88, Calcium 8.2 L, Total Bilirubin 0.50, AST 29, ALT 25, Alkaline Phosphatase 77, C-React Prot Ext Range 23.70 H, Total Protein 5.6 L, Albumin 2.4 L, Globulin 3.2, Albumin/Globulin Ratio 0.8 L 10/11/19 07:05: WBC 4.2 L, RBC 2.88 L, Hgb 8.9 L, Hct 30.2 L, MCV 104.9 H, MCH 30.9, MCHC 29.5 L, RDW Std Deviation 58.5 H, RDW Coeff of Jaun 15.2 H, Plt Count 197, MPV 10.4, Immature Gran % (Auto) 1.400 H, Neut % (Auto) 51.9, Lymph % (Auto) 39.3, Mcculloch % (Auto) 6.5, Eos % (Auto) 0.7, Baso % (Auto) 0.2, Absolute Neuts (auto) 2.2, Absolute Lymphs (auto) 1.63, Nucleated RBC % 1.4, Differential Comment SCANNED, Reactive Lymphocytes 1+ Current Medications Acetaminophen (Tylenol) 650 mg PO Q6H PRN PRN PRN Reason: Pain Score 1-10/Temp > 100.7 F Last Admin: 10/11/19 03:37 Dose: 650 mg Documented by: Albuterol Sulfate (Ventolin Hfa (Sp)) 2 puff INHALATION Q4H PRN PRN PRN Reason: sob Last Admin: 10/07/19 01:49 Dose: 2 puff Documented by: Aspirin (Aspirin, Baby) 81 mg PO DAILY [facility] Last Admin: 10/11/19 09:18 Dose: 81 mg Documented by: Atorvastatin Calcium (Lipitor) 80 mg PO QHS [facility] Last Admin: 10/10/19 21:14 Dose: 80 mg Documented by: Buspirone HCl (Buspar) 10 mg PO TID [facility] Last Admin: 10/11/19 06:36 Dose: 10 mg Documented by: Dextrose (D50w Syringe) 0 gm IV X1 PRN; Protocol PRN Reason: Hypoglycemia Dicyclomine HCl (Bentyl) 10 mg PO TIDAC [facility] Last Admin: 10/11/19 10:44 Dose: 10 mg Documented by: Enoxaparin Sodium (Lovenox) 120 mg SC BID [facility] Last Admin: 10/11/19 09:18 Dose: 120 mg Documented by: Furosemide (Lasix) 40 mg PO DAILY [facility] Last Admin: 10/11/19 09:18 Dose: 40 mg Documented by: Glucagon () 1 mg IM .X1 PRN PRN Reason: Hypoglycemia Guaifenesin (Mucinex) 1,200 mg PO BID [facility] Last Admin: 10/11/19 09:18 Dose: 1,200 mg Documented by: Sodium Chloride () 250 mls @ 15 mls/hr IV .[id number] PRN PRN Reason: Saline Flush Last Infusion: 10/11/19 10:46 Dose: 0 mls/hr Documented by: Ceftriaxone Sodium 2 gm/ (Sodium Chloride) 50 mls @ 100 mls/hr IV Q24 [facility] Stop: 10/13/19 13:53 Last Infusion: 10/11/19 09:49 Dose: Infused Documented by: Ibuprofen (Motrin) 400 mg PO Q6H PRN PRN PRN Reason: pain 1-03/13 Lorazepam (Ativan) 0.5 mg PO Q8H PRN PRN PRN Reason: severe anxiety Last Admin: 10/11/19 08:20 Dose: 0.5 mg Documented by: Miscellaneous Information (Pocket Chamber) 1 each INHALATION Q4H PRN PRN Nitroglycerin (Nitrostat) 0.4 mg SUBLINGUAL Q5M PRN PRN Reason: CARDIAC/CHEST PAIN Oxycodone HCl (Oxyir) 5 mg PO Q4H PRN PRN PRN Reason: Pain Score 4-5/10 Last Admin: 10/11/19 03:37 Dose: 5 mg Documented by: Pantoprazole Sodium (Protonix) 40 mg PO DAILY [facility] Last Admin: 10/11/19 09:18 Dose: 40 mg Documented by: Paroxetine HCl (Paxil) 40 mg PO QHS [facility] Last Admin: 10/10/19 21:15 Dose: 40 mg Documented by: [facility]assium [facility] Prednisone () 30 mg PO DAILY@0800 [facility]; Taper Stop: 10/19/19 07:59 Last Admin: 10/11/19 08:20 Dose: 30 mg Documented by: Prochlorperazine Edisylate (Compazine Iv) 5 mg IV Q4H PRN PRN PRN Reason: Breakthrough nausea/vomiting Promethazine HCl (Phenergan) 12.5 mg IV Q6H PRN PRN PRN Reason: Breakthrough nausea/vomiting Last Admin: 10/10/19 16:07 Dose: 12.5 mg Documented by: Senna/Docusate Sodium (Senokot-S, Misti-Colace) 2 tablet PO BID PRN PRN PRN Reason: Constipation Last Admin: 10/08/19 20:48 Dose: 2 tablet Documented by: Sodium Chloride () 10 - 40 ml IV UD PRN PRN Reason: SALINE FLUSH Last Admin: 10/11/19 09:19 Dose: 10 ml Documented by: Temazepam (Restoril) 30 mg PO QHS [facility] Last Admin: 10/10/19 21:16 Dose: 30 mg Documented by: Discharge Activity: May Not Drive Weight Bearing Status: Weight bearing as tolerated Call your doctor if you observe: Fever of 101 or Higher, Inability to urinate, Inability to have a bowel movement, Shortness of breath, Dizziness, Fainting spells, Swelling in the ankles, Chest pain, Prolonged hiccoughing, Increased palpitations (irregular heartbeat), Calf discomfort, Uncontrolled pain Home Medications: Medications to take at Discharge Albuterol Inhaler [Ventolin Hfa] 1 - 2 puff INHALATION Q4H PRN PRN 12/09/18 Pantoprazole Sodium [Protonix] 40 mg PO DAILY 12/09/18 Rosuvastatin Calcium 40 mg PO QHS 12/09/18 Acetaminophen [Tylenol Tablet] 650 mg PO Q6H PRN PRN tab 12/13/18 PEP device 0 .ROUTE .MEDSUPPLY #1 ea 05/12/19 Furosemide 40 mg PO DAILY 10/01/19 Paxil 20 mg PO QHS 10/01/19 Aspirin 81 mg PO DAILY #1 tab.chew 10/04/19 Dicyclomine HCl [Bentyl] 10 mg PO TIDAC #30 cap 10/04/19 Ibuprofen [Motrin] 600 mg PO Q6H PRN PRN tab 10/04/19 Ondansetron HCl [Zofran] 4 mg PO DAILY PRN PRN #0 10/04/19 Prochlorperazine Maleate [Compazine] 10 mg PO Q8H PRN #20 tab 10/04/19 Guaifenesin [Mucinex] 1,200 mg PO BID #14 tab 10/11/19 Potassium Chloride [K-Dur] 20 meq PO BID #0 10/11/19 Temazepam [Restoril] 30 mg PO QHS PRN PRN #7 cap 10/11/19 busPIRone [Buspar] 10 mg PO BID PRN PRN #20 tab 10/11/19 levoFLOXacin tablet [Levaquin tablet] 750 mg PO DAILY #1 tab 10/11/19 Following Prescrptions Were Given to Patient: busPIRone [Buspar] 10 mg PO BID PRN PRN #20 tab PRN Reason: Anxiety Transmission Status: Received by [facility] levoFLOXacin tablet [Levaquin tablet] 750 mg PO DAILY #1 tab Transmission Status: Received by [id number] Guaifenesin [Mucinex] 1,200 mg PO BID #14 tab Transmission Status: Received by [id number] Temazepam [Restoril] 30 mg PO QHS PRN PRN #7 cap PRN Reason: Insomnia Transmission Status: Received by [facility] Primary Care Physician: Karl Moran MD [Primary Care Provider] - Please follow up with your Primary Care Physician in: IN 2 weeks Please Follow Up With: Davian Sung MD When: in 2 weeks if fever Please Follow Up With: Michael Romero MD When: for Headache, possible MIGRAINE, in 2-3 weeks Medical Necessity - Tobacco Use Smoking Status: Former smoker Meaningful Use Info Meaningful Use Diagnoses (Choose all that apply): None applicable Inpatient E&M: 88671 Disch Hosp
[2019-10-11 12:16] LABS: Haptoglobin 395 mg/dL (33-346)
--- NOTE | 2019-10-11 13:40 | NURSING ---
Prior to d/c this RN and Shirlene RN out at nurses' station. [place] someone yelling. Noticed it sounded like, help! This RN called into room and noticed that pt's call light was right next to her but she continued to yell. Pt reports that she cannot breathe and is sitting at bedside, spilling water on her tray and using hands to place on her forehead. This RN entered room and found that pt was in bathroom and had removed oxygen, 2L- as she is at home, prior. Asked patient why her oxygen was removed if she is short of breath. patient reports that it was stuck and she could not get it to bathroom. Notified pt that it was simply laying across bed and not caught on anything. This RN had assisted pt with placement of O2 as soon as noticed. Previous to this pt was talking on phone and laughing so loudly that staff could hear, through her closed door, at nurses' station. At time of d/c, this RN wheeled pt down to awaiting car with . pt began waving wildly the length of the hallway prior to main entrance. Pt then yells, well hello love muffin!!! and continues being very loud. embarrassed and was garsia with her. Pt looked at this RN and states, well I am just going to go right back up with you. Pt assisted with transition from [facility] portable O2 to home o2 in her car, further needs denied. Pt given 4 bottles of prescription medications, including restoril, and exact changed.
--- NOTE | 2019-10-13 10:59 | CASEMGMT ---
RN CM Discharge Follow-up Phone Call: ELSA: 14 Strata: 4 Call Date: 10/13/2019 Discharge Date: 10/11/2019 Time of Call: 1100 Duration: Admitting Diagnosis: Covid pneumonia, Hypoxia RN CM attempted to complete follow-up phone call after recent hospitalization. No answer, unable to leave voicemail as it is not setup. CM to attempt again at later time.
== END 2019-10-11 13:05 | disposition home or self-care (01) | DRG 871 ==
LOC: ED 09:31 → MS2 14:18
PROVIDERS: Admitting Provider Internal Medicine; Emergency Provider Emergency Medicine; PCP Family Medicine; Visit Provider Internal Medicine
DX: A41.89 Other specified sepsis (principal); J12.89 Other viral pneumonia; U07.1 COVID-19; J96.21 Acute and chronic respiratory failure with hypoxia; D61.818 Other pancytopenia; J44.0 Chronic obstructive pulmonary disease with (acute) lower respiratory infection; Z68.41 Body mass index [BMI] 40.0-44.9, adult; I12.9 Hypertensive chronic kidney disease with stage 1 through stage 4 chronic kidney disease, or unspecified chronic kidney disease; N18.1 Chronic kidney disease, stage 1; M19.90 Unspecified osteoarthritis, unspecified site; F32.9 Major depressive disorder, single episode, unspecified; G47.33 Obstructive sleep apnea (adult) (pediatric); K21.9 Gastro-esophageal reflux disease without esophagitis; E78.5 Hyperlipidemia, unspecified; E66.01 Morbid (severe) obesity due to excess calories; Z99.81 Dependence on supplemental oxygen; Z87.891 Personal history of nicotine dependence; J45.20 Mild intermittent asthma, uncomplicated; Z79.51 Long term (current) use of inhaled steroids; Z79.899 Other long term (current) drug therapy; Z79.82 Long term (current) use of aspirin; I27.20 Pulmonary hypertension, unspecified; F41.9 Anxiety disorder, unspecified; G43.909 Migraine, unspecified, not intractable, without status migrainosus; Z66 Do not resuscitate; D63.1 Anemia in chronic kidney disease
CPT/HCPCS: 36415; 71045; 71275; 80053; 82607; 82728; 82746; 83010; 83540; 83550; 83605; 83615; 83735; 83880; 84145; 84484; 85025; 85045; 85379; 86140; 87040; 87070; 87106; 87205; 87633; 87641; 93005; 94667; 96361; 96374; 96375; 99251; 99285; J7030; J7050; Q9967; A4216; G0463; J0696; J2405

== ENCOUNTER 2019-10-20 08:54 | Emergency (ER) | payer OTHER, SELFPAY ==
[2019-10-06 12:09] VITALS: BMI 39.3
[2019-10-20] VITALS (7 sets, daily range): BP systolic 105–122; BP diastolic 73–76; PULSE 108–130; RESP 19–32; TEMP 36.1–36.6; O2SAT 86–99; BMI 38.0
--- NOTE | 2019-10-20 09:18 | EKG12_ITS ---
Test Reason : CHF Blood Pressure : / mmHG Vent. Rate : 116 BPM Atrial Rate : 116 BPM P-R Int : 142 ms QRS Dur : 112 ms QT Int : 354 ms P-R-T Axes : 053 103 -04 degrees QTc Int : 492 ms Sinus tachycardia Low voltage QRS Right bundle branch block Abnormal ECG Confirmed by RADHA CLINTON, MG ([id number]), art editor CHRISS MORA ([id number]) on 10/21/2019 3:41:15 PM Referred By: BROCK Confirmed By:MG GARCIA MD
--- NOTE | 2019-10-20 09:18 | RAD_ITS ---
STUDY: X-RAY CHEST REASON FOR EXAM: Female, 58 years old. tested positive for COVID 19 3 weeks ago -- SOB worsening -- CHF TECHNIQUE: Single AP portable view of the chest. COMPARISON: 10/09/2019 FINDINGS: Stable irregular subpleural groundglass opacities and fibrotic changes are seen more prominent in the lung bases are consistent (COVID-19 ). There is no demonstrated pleural abnormality. Normal size heart. Normal mediastinum and myriam. Normal visualized pulmonary arteries. Normal visualized aortic arch and descending thoracic aorta. Normal visualized thoracic spine. Normal visualized ribs, clavicles, and shoulders. There is no demonstrated abnormality of the visualized soft tissue structures of the upper abdomen. RAD/Chest 1 View (Portable) IMPRESSION: Stable irregular subpleural groundglass opacities and fibrotic changes are seen more prominent in the lung bases are consistent (COVID-19 ). Electronically Signed: Jorge Gonzales, at 10:08 EDT Tel , Service support ,
[2019-10-20 09:34] LABS: Absolute Lymphocyte Count 2.38 X10^3/uL (0.83-4.51); Absolute Neutrophil Count 2.6 X10^3/uL (2.0-7.7); Basophil# 0.03 X10^3/uL; Basophil% 0.5 % (0-1); Eosinophil# 0.03 X10^3/uL; Eosinophils% 0.5 % (0-5); Hematocrit 34.6 % (37-47); Hemoglobin 10.2 g/dL (12.0-15.0); Lymphocyte # 2.38 X10^3/ul (4.0); Lymphocyte % 42.8 % (19-41); Mean Corp Hgb Conc 29.5 g/dL (32-36); Mean Corpuscular Hgb 30.2 pg (27.0-32.0); Mean Corpuscular Volume 102.4 fL (81-99); Mean Platelet Vol. 10.2 fl (6.2-12.0); Monocyte# 0.45 X10^3/uL; Monocyte% 8.1 % (0-10); NRBC Flagged by Analyzer 0.4 % (0-5); Neutrophil # 2.62 X10^3/uL (2.7-7.7); Neutrophil % 47.2 % (47-70); Platelet Count 214 K/mm3 (150-450); RBC Distribution Width CV 17.1 % (11.6-14.6); Red Blood Count 3.38 M/mm3 (4.2-5.4); White Blood Count 5.6 K/mm3 (4.4-11.0)
[2019-10-20 09:50] LABS: ALB/GLOB Ratio 0.9 RATIO (0.9-2.4); AST(SGOT) 30 U/L (15-37); Alanine Aminotransfer ALT/SGPT 25 U/L (13-56); Albumin, Serum 3.1 g/dL (3.2-5.0); Alkaline Phosphatase 109 U/L (45-117); Anion Gap 7 (5-15); BUN 10 mg/dL (7-18); BUN/Creat Ratio 9.1 RATIO (10-20); Calcium,Total 8.3 mg/dL (8.5-10.1); Chloride 105 mmol/L (98-107); EST Glomerular Filtration Rate 54 mL/min (>60); Est Glom Filt Rate - Afr Amer 66 mL/min (>60); Estimated Creatinine Clearance 56.92 ml/min; Globulin 3.4 g/dL (2.2-4.2); Glucose 122 mg/dL (74-106); Potassium 3.9 mmol/L (3.5-5.1); Protein, Total 6.5 g/dL (6.4-8.2); Sodium Level 140 mmol/L (136-145)
[2019-10-20 09:57] LABS: BNP,B-Type NATRIURETIC PEPTIDE 17.1 pg/mL (0-100)
--- NOTE | 2019-10-20 11:31 | ED.DCSUM_ITS ---
History of Present Illness Chief Complaint: Shortness of Breath Informant: Patient Narrative: Patient with several recent hospitalizations for COVID-19. She states that she went home and had a rough for a few days but things were generally getting better. She notes increasing lower extremity edema. She notes increased shortness of breath. She has been able to lay flat at night. She does take Lasix and has a history of diastolic heart failure. Last EF of 65% that I can find in the computer. No fevers. Past Medical History - Allergies and Home Meds Allergies/Adverse Reactions: Allergies Penicillins Allergy (Verified 10/20/19 09:41) Hives DUST Allergy (Uncoded 10/20/19 09:41) itchy eyes SEASONAL Allergy (Uncoded 10/20/19 09:41) itchy eyes Primary Care Physician: Karl Moran MD [Primary Care Provider] - 1 Week if not improving Surgical History: adenoidectomy, appendectomy, cholecystectomy, herniorrhaphy, hysterectomy, - Smoking Status: Former smoker - Family History Maternal Family History: Family History (Last Reviewed 10/01/19 @ 13:[address] Blayne Santana DO) Father Colon cancer Mother Cancer Family History: Reports: - Paternal Family History: Family History (Last Reviewed 10/01/19 @ 13:[address] Blayne Santana DO) Father Colon cancer Mother Cancer Family History: Reports: Hypertension Review of Systems General: Denies: Chills, Fever, Sweats Eyes: Denies: Visual changes - bilaterally, Diplopia ENT: Denies: Rhinorrhea, Sore throat Cardiovascular: Denies: Chest pain, Palpitations Respiratory: Reports: Dyspnea, Dyspnea on exertion. Denies: Cough, Orthopnea, Paroxysmal nocturnal dyspnea Gastrointestinal: Denies: Abdominal pain, Nausea, Vomiting, Diarrhea, Melena, Hematochezia Genitourinary: Denies: Dysuria, Hematuria, Frequency Musculoskeletal: Denies: Back pain, Extremity Pain Skin: Denies: Rash, Wounds Neurological: Denies: Headache, Weakness, Numbness Physical Exam Vital Signs/Narrative: Vital Signs Temp Pulse Resp BP Pulse Ox 10/20/19 11:00 97 F L 116 H 22 H 105/74 98 10/20/19 10:33 97.6 F L 112 H 19 H 122/73 H 98 10/20/19 10:00 112 H 28 H 110/76 99 10/20/19 09:21 97.8 F 130 H 32 H 110/76 98 10/20/19 08:56 97.8 F 130 H 32 H 86 Inital Vital Signs reviewed: Yes General: Well nourished, Well developed, No Acute Distress Head: Normocephalic, Atraumatic Eyes: Perrl, EOMI ENT: Moist mucous membranes, No rhinorrhea Neck: Supple, Nontender Cardiovascular: Regular rate, Regular rhythm, No murmurs Respiratory: No distress, CTA bilaterally, Chest nontender Abdomen: Soft, Nontender, Nondistended, Normal bowel sounds Back: Nontender, Normal Inspection Extremities: Nontender, Edema - 1+ pitting edema bilateral to the level of the knees Skin: Normal color, No rash Neurological: Alert, Oriented x3, Cranial nerves II-XII grossly intact, Normal Strength, Normal Sensation Psychological: Normal affect, Normal Mood Diagnostic/Tx/Re-eval - EKG Initial EKG Interpretation: Sinus Tachycardia - EKG demonstrates a sinus tachycardia at a rate of 116 with a right bundle branch block. The right bundle branch block is known. - Medical Decision Making Chest x-ray appears stable. She has been mid to high 90s on her couple liters of oxygen. EKG is a sinus tachycardia at 116. Creatinine is 1.1. Troponin is negative. Patient has been up to the bathroom several times. She remains tachycardic but tells me that she is normally tachycardic. Given that she has increased lower extremity edema and this dyspnea is reasonable to increase her Lasix. However do daily weights and follow-up in a week if not improving. She does have a standing order to get her creatinine levels checked. ED Disposition - Plan for ED Patient: Disposition: Home or Assisted Living Diagnosis: Diastolic heart failure Instructions: ED CHF General Prescriptions: Furosemide [Lasix] 80 mg PO DAILY #5 tab Transmission Status: Received by [id number] [facility] Referrals: Karl Moran MD [Primary Care Provider] - 1 Week if not improving Additional Instructions: I would recommend weighing yourself daily. That way you can report this to your doctors.
== END 2019-10-20 11:47 | disposition home or self-care (01) ==
PROVIDERS: Emergency Provider Emergency Medicine; PCP Family Medicine
DX: I50.30 Unspecified diastolic (congestive) heart failure (principal); I45.10 Unspecified right bundle-branch block; Z86.19 Personal history of other infectious and parasitic diseases; Z79.82 Long term (current) use of aspirin; Z79.899 Other long term (current) drug therapy; Z87.891 Personal history of nicotine dependence
CPT/HCPCS: 71045; 80053; 83880; 84484; 85025; 93005; 99284; A4216

== ENCOUNTER → 2019-11-17 08:47 | Outpatient (CLI) | payer OTHER, SELFPAY ==
[2019-11-05 15:39] VITALS: BMI 40.4
[2019-11-17 09:19] LABS: Anion Gap 7 (5-15); BUN 18 mg/dL (7-18); Calcium,Total 9.3 mg/dL (8.5-10.1); Chloride 105 mmol/L (98-107); EST Glomerular Filtration Rate 61 mL/min (>60); Est Glom Filt Rate - Afr Amer 73 mL/min (>60); Glucose 146 mg/dL (74-106); Potassium 3.8 mmol/L (3.5-5.1); Sodium Level 142 mmol/L (136-145)
[2019-11-17 12:48] LABS: AST(SGOT) 42 U/L (15-37); Alanine Aminotransfer ALT/SGPT 38 U/L (13-56); Albumin, Serum 4.2 g/dL (3.2-5.0); Alkaline Phosphatase 86 U/L (45-117); Bilirubin, Direct 0.32 mg/dL (0.00-0.30); Globulin 3.1 g/dL (2.2-4.2); Phosphorus 3.3 mg/dL (2.5-4.9); Protein, Total 7.3 g/dL (6.4-8.2)
== END ==
LOC: LAB 08:53 → PAVLAB 09:16
PROVIDERS: Internal Medicine Nephrology; PCP Family Medicine; Referring Provider Nurse Practitioner Acute Care; Visit Provider Nurse Practitioner Acute Care
DX: N17.9 Acute kidney failure, unspecified (principal); R06.02 Shortness of breath
CPT/HCPCS: 36415; 80048; 80076; 84100

== ENCOUNTER → 2019-11-22 08:21 | Outpatient (CLI) | payer OTHER, SELFPAY ==
[2019-11-05 15:39] VITALS: BMI 40.4
--- NOTE | 2019-11-22 08:23 | RAD_ITS ---
STUDY: X-RAY CHEST REASON FOR EXAM: Female, 58 years old. SOB, LLE EDEMA - FEW WKS AGO, STARTED AGAIN YESTERDAY. HX COVID-19 TECHNIQUE: Single AP portable view of the chest. COMPARISON: AP October 22, 2019 FINDINGS: Compared to 20 Oct 2019 there is reduced peripheral patchy airspace disease in interstitial markings. Mild peripheral patchy airspace disease remains with mild prominent interstitial markings compared with the initial 07 January 2019 exam. There is no demonstrated pleural abnormality. Normal size heart. Normal mediastinum and myriam. Normal visualized pulmonary arteries. Normal visualized aortic arch and descending thoracic aorta. Normal visualized thoracic spine. Normal visualized ribs, clavicles, and shoulders. There is no demonstrated abnormality of the visualized soft tissue structures of the upper abdomen. RAD/Chest PA and Lateral IMPRESSION: Findings consistent with reducing peripheral patchy airspace disease and interstitial markings from 20 Oct 2019. Electronically Signed: Cr Lester DO at 9:18 EDT , Service support ,
[2019-11-22 10:38] LABS: BNP,B-Type NATRIURETIC PEPTIDE 28.6 pg/mL (0-100)
== END ==
PROVIDERS: PCP Family Medicine; Referring Provider Nurse Practitioner Acute Care; Visit Provider Nurse Practitioner Acute Care
DX: R06.02 Shortness of breath (principal)
CPT/HCPCS: 36415; 71046; 83880

== ENCOUNTER 2020-11-16 15:29 | Emergency (ER) | payer OTHER, SELFPAY ==
[2019-11-05 15:39] VITALS: BMI 40.4
[2020-11-16 15:31] VITALS: BP 129/79; PULSE 79; RESP 18; TEMP 36.6; O2SAT 98; BMI 41.3
--- NOTE | 2020-11-16 15:45 | RAD_ITS ---
STUDY: X-RAY - PELVIS AND RIGHT HIP REASON FOR EXAM: Female, 59 years old. fall, pain TECHNIQUE: 3 views of the pelvis and hip. COMPARISON: Pelvic x-ray dated March 08, 2017 FINDINGS: Stable bilateral hip prostheses in lower lumbar spine hardware. No acute fractures seen. No demonstrated hardware displacement or complications. There is a non-specific bowel gas pattern. Normal visualized soft tissue structures. Normal bilateral iliac wings, sacroiliac joints and visualized sacrum. Normal bilateral superior and inferior pubic rami. Normal pubic symphysis. Normal bilateral ischial tuberosities. RAD/HIP, UNI W/ Pelvis 2-3 Views IMPRESSION: No visualized acute process Electronically Signed: Wu Agustin MD at 17:28 EDT , Service support ,
--- NOTE | 2020-11-16 15:46 | EDS_ITS ---
HPI History of Present Illness Chief Complaint: Fall Informant: patient Narrative Narrative: Patient presents after a fall. She states that she had her legs give out which is happened multiple times in the past. She injured her right leg. It is in the proximal fibular area. Is worse with movement. She was unable to walk after this fall. She is fallen 3 times in 2 days. She has been having leg twitching for quite a while but she has not talk to her doctor about it. She denies any head trauma or LOC. She is having no neck or back pain. She did not take anything for her pain today. She also tells me she has pain all over her body, but none are localized like the right leg. [facility] Medical History (Updated 11/16/20 @ 17:[address] Justin Aguirre MD) Abdominal pain Abnormal liver CT Anemia Anxiety Arthritis Asthma Bronchiectasis Bronchitis Chronic renal failure Chronic renal insufficiency, stage I Colitis Colitis with rectal bleeding COPD (chronic obstructive pulmonary disease) Depression DVT (deep venous thrombosis) Endocarditis Essential (primary) hypertension Gastritis Gastroesophageal reflux disease History of diarrhea History of umbilical hernia HLD (hyperlipidemia) Idiopathic right ventricular dilation Leukopenia Migraine Morbid obesity GENNARO (obstructive sleep apnea) Osteoarthritis Pancytopenia Pneumonia Respiratory failure with hypoxia Respiratory insufficiency Respiratory tract infection due to COVID-19 virus Restrictive lung disease Right bundle branch block (RBBB) Right ventricular systolic dysfunction Sepsis Thrombocytopenia Home Medications albuterol sulfate 1 - 2 puff INHALATION Q4H PRN PRN 12/09/18 [History Last Taken Unknown] pantoprazole 40 mg PO DAILY 12/09/18 [History Last Taken 10/01/19] rosuvastatin 40 mg PO QHS 12/09/18 [History Last Taken 12/21/18] acetaminophen 650 mg PO Q6H PRN PRN tab 12/13/18 [Rx Last Taken Unknown] prochlorperazine maleate 10 mg PO Q8H PRN #20 tab 10/04/19 [Rx Last Taken Unknown] guaifenesin 1,200 mg PO BID #14 tab 10/11/19 [Rx Last Taken Unknown] buspirone 10 mg tablet 10 mg PO BID tab 10/23/19 [History Last Taken Unknown] dicyclomine 10 mg capsule 10 mg PO TIDAC cap 10/23/19 [History Last Taken Unknown] potassium chloride 20 mEq tablet,extended release(part/cryst) 60 meq PO BID tab 10/23/19 [History Last Taken Unknown] furosemide 40 mg tablet 40 mg PO DAILY #30 tab 11/05/19 [Rx Last Taken Unknown] lorazepam 0.5 mg tablet 0.5 mg PO DAILY PRN 11/05/19 [History Last Taken Unknown] Allergy/AdvReac Type Severity Reaction Status Date / Time Penicillins Allergy Hives Verified 11/16/20 15:34 DUST Allergy itchy eyes Uncoded 11/16/20 15:34 SEASONAL Allergy itchy eyes Uncoded 11/16/20 15:34 Family History Father Colon cancer Mother Cancer pancreatic Surgical History History of appendectomy History of cholecystectomy History of hysterectomy History of tubal ligation Social History Smoking Status: Former smoker Tobacco: How many years used: 25 how long ago did patient quit smokin, 0.5ppd second hand exposure: Yes alcohol intake: never ROS ROS ED Constitutional Constitutional ED: Denies chills or fever(s) Eyes Eyes: Denies blurry vision, change in vision or diplopia ENT ENT ED: Denies ear pain, rhinorrhea or sore throat Cardiovascular Cardiovascular: Denies chest pain or palpitations Respiratory/Chest Respiratory/Chest: Denies cough, dyspnea or sputum Gastrointestinal Gastrointestinal: Denies abdominal pain, diarrhea, nausea or vomiting Genitourinary Genitourinary ED: Denies dysuria, hematuria or urinary frequency Musculoskeletal Musculoskeletal: Reports other Details: Leg pain Integumentary Denies change in pigmentation or rash Neurologic Neurologic: Denies headache(s), numbness or weakness Psychiatric Psychiatric: Denies anxiety or depression Endocrine Endocrinology: Denies polydipsia or polyuria EXAM Physical Exam Const Vital Signs: 11/16/20 15:31 11/16/20 16:09 Temperature 97.9 F Temperature Source Temporal Pulse Rate 79 80 Respiratory Rate 18 16 Respiratory Effort Normal Respiratory Depth Normal Respiratory Pattern Normal Blood Pressure 129/79 H 107/69 Blood Pressure Mean 95 81 Pulse Ox 98 97 Oxygen Delivery Method Room Air Room Air Oxygen Flow Rate (L/min) 5 Positive well nourished and well developed General Appearance ED: well developed HEENT atraumatic and tenderness Eyes PERRL and EOMs intact bilaterally Neck full ROM General: Negative for tenderness Resp normal respiratory effort and clear to auscultation bilaterally Cardio regular rhythm and no murmurs Rate: regular rate GI normal to inspection, nondistended, normoactive bowel sounds and non-tender Palpation: soft Back/Spine normal to inspection Extremity Extremity Narrative: The patient has tenderness throughout the whole leg but localized in the proximal fibular area. There is no deformity. Pulses are equal on both legs. Neuro oriented x3, CN's II-XII intact bilaterally and moves all extremities Sensorium / Orientation: alert Psych mental status grossly normal MDM MDM MDM Narrative Medical decision making narrative: Patient was given [place] and Zofran. X-rays of the right hip and right tib/fib showed nothing acute. Patient will be discharged to use ice and her home medications for pain. She will follow-up with her doctor Radiography Diagnostic Testing: Radiology Impression Hip/Pelvis X-Ray 11/16/20 15:45 IMPRESSION: No visualized acute process Electronically Signed: Wu Agustin MD at 17:28 EDT , Service support , Tibia/Fibula X-Ray 11/16/20 16:25 IMPRESSION: Normal x-ray examination of the tibia and fibula. Electronically Signed: Wu Agustin MD at 17:28 EDT , Service support , Discharge Plan Triage Chief Complaint: Fall ED Provider: Justin Aguirre Dx/Rx/DC Orders Clinical Impression: Contusion of leg, right Instructions: ED Soft Tissue Contusion, ED Mechanical Fall Prescriptions: No Action lorazepam [Ativan] 0.5 mg tablet 0.5 mg PO DAILY PRNRF: 0 furosemide 40 mg tablet 40 mg PO DAILY Qty: 30 RF: 6 potassium chloride 20 mEq tablet,ER particles/crystals 60 meq PO BID RF: 0 buspirone 10 mg tablet 10 mg PO BID RF: 0 dicyclomine 10 mg capsule 10 mg PO TIDAC RF: 0 rosuvastatin 40 MG tablet 40 mg PO QHS RF: 0 pantoprazole 40 MG tablet 40 mg PO DAILY RF: 0 albuterol sulfate 1 INHALER inhaler 1 - 2 puff inhalation Q4H PRN PRN (Reason: Shortness Of Breath) RF: 0 acetaminophen 325 MG tablet 650 mg PO Q6H PRN PRN (Reason: Mild Pain (1-3)/Temp > 100.7 F) RF: 0 prochlorperazine maleate 10 MG tablet 10 mg PO Q8H PRN (Reason: nausea and vomiting) Qty: 20 RF: 0 guaifenesin 1,200 MG tablet 1,200 mg PO BID Qty: 14 RF: 0 Primary Care Provider: Karl Moran Referrals: Karl Moran MD [Primary Care Provider] - Disposition Disposition: Home, self care
[2020-11-16] MEDS: HYDROcodone Bitartrate/Apap 5/325 Tablet PO (16:03)
[2020-11-16] MEDS: Ondansetron ODT 4 MG Tablet 8 MG PO (16:04)
[2020-11-16 16:09] VITALS: BP 107/69; PULSE 80; RESP 16; O2SAT 97
--- NOTE | 2020-11-16 16:25 | RAD_ITS ---
STUDY: X-RAY - RIGHT TIBIA AND FIBULA REASON FOR EXAM: Female, 59 years old. fall, pain TECHNIQUE: 2 view(s) of the tibia and fibula were obtained. COMPARISON: None. FINDINGS: Normal visualized tibia. Normal visualized fibula. There is no demonstrated acute fracture. The soft tissue structures are unremarkable. RAD/Tibia & Fibula 2 Views IMPRESSION: Normal x-ray examination of the tibia and fibula. Electronically Signed: Wu Agustin MD at 17:28 EDT , Service support ,
[2020-11-16 18:31] VITALS: BP 107/83; PULSE 60; RESP 16; O2SAT 99
== END 2020-11-16 18:32 | disposition home or self-care (01) ==
PROVIDERS: Emergency Provider Emergency Medicine; PCP Family Medicine
DX: S80.11XA Contusion of right lower leg, initial encounter (principal); E66.01 Morbid (severe) obesity due to excess calories; Z87.891 Personal history of nicotine dependence
CPT/HCPCS: 73502; 73590; 99284

== ENCOUNTER 2020-11-22 10:43 | Emergency (ER) | payer OTHER, SELFPAY ==
[2020-11-22] VITALS (8 sets, daily range): BP systolic 76–154; BP diastolic 8–88; PULSE 77–100; RESP 16–20; TEMP 36.2–36.8; O2SAT 94–100; BMI 41.0
--- NOTE | 2020-11-22 11:14 | RAD_ITS ---
STUDY: X-RAY CHEST REASON FOR EXAM: Female, 59 years old. syncope TECHNIQUE: Single AP portable view of the chest. COMPARISON: 11/22/2019 FINDINGS: The lungs are clear and expanded. There is no demonstrated pleural abnormality. Normal size heart. Normal mediastinum and myriam. Normal visualized pulmonary arteries. Normal visualized aortic arch and descending thoracic aorta. There is a dextroscoliosis of the thoracic spine. Normal visualized ribs, clavicles, and shoulders. There is no demonstrated abnormality of the visualized soft tissue structures of the upper abdomen. RAD/Chest 1 View (Portable) IMPRESSION: Normal x-ray examination of the chest. Electronically Signed: Rui Baugh MD at 13:03 EDT Tel , Service support ,
--- NOTE | 2020-11-22 11:14 | EKG12_ITS ---
Test Reason : GEN ILLNESS Blood Pressure : / mmHG Vent. Rate : 077 BPM Atrial Rate : 077 BPM P-R Int : 170 ms QRS Dur : 150 ms QT Int : 446 ms P-R-T Axes : 058 077 017 degrees QTc Int : 504 ms Normal sinus rhythm Right bundle branch block Abnormal ECG Confirmed by SHERYL CLINTON, JOSE ([id number]), senior technical editor JOSIAH FLOOD ([id number]) on 11/24/2020 9:18:17 AM Referred By: Confirmed By:JOSE SAUCEDO MD
--- NOTE | 2020-11-22 11:14 | CT_ITS ---
STUDY: CT BRAIN WITHOUT CONTRAST REASON FOR EXAM: Female, 59 years old. injury RADIATION DOSAGE (If Supplied By Facility): CTDIvol = ( 44.99 ) mGy, DLP = ( 796.11 ) mGycm TECHNIQUE: Transaxial CT imaging of the brain was performed without administration of intravenous contrast material. Individualized dose optimization techniques were used for this CT. COMPARISON: No relevant priors. FINDINGS: Normal soft tissue structures. Normal calvarium. Normal size ventricles and extra-axial spaces for the patient''s age. Normal white matter tracts of the cerebral hemispheres. Normal basal ganglia and thalami. Normal brainstem. Normal cerebellum. There is no intracranial hemorrhage. There are no findings of an acute ischemic infarction. Normal visualized paranasal sinuses. CT/Brain/Head without Contrast IMPRESSION: Normal unenhanced CT scan of the brain. Electronically Signed: Rui Baugh MD at 13:02 EDT Tel , Service support ,
--- NOTE | 2020-11-22 11:37 | EX.ED.DYSGE1 ---
HPI History of Present Illness Chief Complaint: General Illness Informant: patient and family Narrative Narrative: 59-year-old female reports intermittent hypotension and frequent falls. She states she went saw her doctor on Sunday the power went out. She states that sometimes she forgets up and she is very lightheaded and the room is spinning. States that sometimes she has to hold onto things to walk. She is fallen multiple times and sustained bruising. She notes that she did hit her forehead recently. She notes a history of CHF and currently is taking 80 of Lasix a day. In reviewing her medications she states she does not believe she has any more Compazine but would like something for nausea at home. Patient is chronically on about 5 L nasal cannula. Sister tells me that the Tad does not seem to be working. I recommend that they contact her home oxygen supplier to check the device. [facility] Medical History (Updated 11/22/20 @ 14:[address] Elías Ascencio, ) Abdominal pain Abnormal liver CT Anemia Anxiety Arthritis Asthma Bronchiectasis Bronchitis Chronic renal failure Chronic renal insufficiency, stage I Colitis Colitis with rectal bleeding COPD (chronic obstructive pulmonary disease) Depression DVT (deep venous thrombosis) Endocarditis Essential (primary) hypertension Gastritis Gastroesophageal reflux disease History of diarrhea History of umbilical hernia HLD (hyperlipidemia) Idiopathic right ventricular dilation Leukopenia Migraine Morbid obesity GENNARO (obstructive sleep apnea) Osteoarthritis Pancytopenia Pneumonia Respiratory failure with hypoxia Respiratory insufficiency Respiratory tract infection due to COVID-19 virus Restrictive lung disease Right bundle branch block (RBBB) Right ventricular systolic dysfunction Sepsis Thrombocytopenia Home Medications albuterol sulfate 1 - 2 puff INHALATION Q4H PRN PRN 12/09/18 [History Last Taken Unknown] pantoprazole 40 mg PO DAILY 12/09/18 [History Last Taken 10/01/19] rosuvastatin 40 mg PO QHS 12/09/18 [History Last Taken 12/21/18] acetaminophen 650 mg PO Q6H PRN PRN tab 12/13/18 [Rx Last Taken Unknown] prochlorperazine maleate 10 mg PO Q8H PRN #20 tab 10/04/19 [Rx Last Taken Unknown] guaifenesin 1,200 mg PO BID #14 tab 10/11/19 [Rx Last Taken Unknown] buspirone 10 mg tablet 10 mg PO BID tab 10/23/19 [History Last Taken Unknown] dicyclomine 10 mg capsule 10 mg PO TIDAC cap 10/23/19 [History Last Taken Unknown] potassium chloride 20 mEq tablet,extended release(part/cryst) 60 meq PO BID tab 10/23/19 [History Last Taken Unknown] furosemide 40 mg tablet 40 mg PO DAILY #30 tab 11/05/19 [Rx Last Taken Unknown] lorazepam 0.5 mg tablet 0.5 mg PO DAILY PRN 11/05/19 [History Last Taken Unknown] ondansetron 4 mg PO Q8H PRN PRN #15 tab 11/22/20 [Rx Last Taken Unknown] Allergy/AdvReac Type Severity Reaction Status Date / Time Penicillins Allergy Hives Verified 11/22/20 10:44 DUST Allergy itchy eyes Uncoded 11/22/20 10:44 SEASONAL Allergy itchy eyes Uncoded 11/22/20 10:44 Family History Father Colon cancer Mother Cancer pancreatic Surgical History History of appendectomy History of cholecystectomy History of hysterectomy History of tubal ligation Social History Smoking Status: Former smoker Tobacco: How many years used: 25 how long ago did patient quit smokin, 0.5ppd second hand exposure: Yes alcohol intake: never ROS ROS ED Review of Systems ROS Unobtainable: other Details: Frequent falls lightheadedness intermittent hypotension Constitutional Constitutional ED: Denies chills or weight loss Eyes Eyes: Denies change in vision or diplopia ENT ENT ED: Denies ear pain, rhinorrhea or sore throat Cardiovascular Cardiovascular: Denies chest pain, orthopnea, palpitations or racing heartbeat Respiratory/Chest Respiratory/Chest: Denies cough, dyspnea or orthopnea Gastrointestinal Gastrointestinal: Denies abdominal pain, diarrhea, nausea or vomiting Genitourinary Genitourinary ED: Denies dysuria, hematuria or urinary frequency Musculoskeletal Musculoskeletal: Denies arthralgias or myalgias Integumentary Reports other Details: Bruising ; Denies abscess or rash Neurologic Neurologic: Denies headache(s) or weakness Psychiatric Psychiatric: Denies anxiety, depression, suicidal ideation or suicidal thoughts Endocrine Endocrinology: Denies polydipsia, polyphagia or polyuria Allergic/Immunologic Allergic/Immunologic ED: Denies mouth swelling, tongue swelling or urticaria EXAM Physical Exam Const Vital Signs: 11/22/20 10:44 11/22/20 11:15 11/22/20 11:41 Temperature 97.1 F L Temperature Source Temporal Pulse Rate 82 80 Pulse Rate [Lying] Pulse Rate [Sitting] Pulse Rate [Standing] Respiratory Rate 20 H 18 Respiratory Pattern Normal Blood Pressure 76/48 L 114/88 H Blood Pressure [Lying] Blood Pressure [Sitting] Blood Pressure [Standing] Blood Pressure Mean 57 96 Blood Pressure Mean [Lying] Blood Pressure Mean [Sitting] Blood Pressure Mean [Standing] Pulse Ox 94 99 96 Oxygen Delivery Method Nasal Cannula Room Air Nasal Cannula Oxygen Flow Rate (L/min) 5 5 11/22/20 12:33 11/22/20 12:36 11/22/20 13:13 Temperature 98.2 F Temperature Source Oral Pulse Rate 100 92 Pulse Rate [Lying] 84 Pulse Rate [Sitting] 85 Pulse Rate [Standing] 88 Respiratory Rate 18 20 H Respiratory Pattern Blood Pressure 154/8 H Blood Pressure [Lying] 117/73 Blood Pressure [Sitting] 112/77 Blood Pressure [Standing] 117/74 Blood Pressure Mean 56 Blood Pressure Mean [Lying] 87 Blood Pressure Mean [Sitting] 88 Blood Pressure Mean [Standing] 88 Pulse Ox 98 Oxygen Delivery Method Nasal Cannula Oxygen Flow Rate (L/min) 5 11/22/20 14:08 Temperature Temperature Source Pulse Rate 77 Pulse Rate [Lying] Pulse Rate [Sitting] Pulse Rate [Standing] Respiratory Rate 18 Respiratory Pattern Blood Pressure 97/59 L Blood Pressure [Lying] Blood Pressure [Sitting] Blood Pressure [Standing] Blood Pressure Mean 71 Blood Pressure Mean [Lying] Blood Pressure Mean [Sitting] Blood Pressure Mean [Standing] Pulse Ox 100 Oxygen Delivery Method Nasal Cannula Oxygen Flow Rate (L/min) 5 Positive well nourished, well developed and obese General Appearance ED: well developed Nutritional Appearance: obese HEENT Reports normocephalic, head/scalp atraumatic and moist mucous membranes HEENT Narrative: There is a left forehead contusion trauma Eyes PERRL and EOMs intact bilaterally Neck no lymphadenopathy, supple and no JVD Resp normal respiratory effort and clear to auscultation bilaterally Cardio regular rate, regular rhythm and no murmurs GI normal to inspection, nondistended, normoactive bowel sounds and non-tender Palpation: soft Back/Spine no CVA tenderness and normal ROM Extremity normal to inspection General Extremety ED: Negative for edema General Extremity: Negative for edema Neuro oriented x3 and CN's II-XII intact bilaterally Sensorium / Orientation: alert Motor Exam: strength 5/5 throughout Psych mental status grossly normal Mood & Affect: Negative for depressed or tearful Skin no rashes or lesions noted and no wounds MDM MDM MDM Narrative Medical decision making narrative: Patient had a initial blood pressure in triage that was low but back in the room she has not been hypotensive. Orthostatics were negative. She got up and walked to the bathroom without difficulty. Her labs show a slight increase of her creatinine 1.6. Otherwise negative. Head CT was negative. My interpretation of the chest x-ray is no acute process. She tells me she is currently taking 80 of Lasix a day working to cut that down to 40. I will write for some Zofran for nausea. Would recommend that she check her blood pressure cuff against her sisters. She tells me her blood pressure cuff is a forearm and if possible she should get a upper arm cuff. I would recommend following up with her doctor for the blood pressure readings. Lab Data Attestation: I reviewed the patient's lab results. Labs: Laboratory Results - last 24 hr 11/22/20 11/22/20 11/22/20 12:15 12:15 12:15 WBC 3.2 L RBC 4.14 L Hgb 11.6 L Hct 37.1 MCV 89.6 MCH 28.0 MCHC 31.3 L RDW Std Deviation 52.4 H RDW Coeff of Jaun 16.0 H Plt Count 135 L MPV 8.9 Immature Gran % (Auto) 0.300 Neut % (Auto) 70.0 Lymph % (Auto) 16.9 L Gila % (Auto) 10.3 H Eos % (Auto) 1.9 Baso % (Auto) 0.6 Absolute Neuts (auto) 2.2 Absolute Lymphs (auto) 0.54 L Nucleated RBC % 0 Diff Path Review October foll PT 12.1 INR 1.0 APTT 25.5 Sodium 138 Potassium 3.3 L Chloride 101 Carbon Dioxide 30.0 Anion Gap 7 BUN 18 Creatinine 1.60 H Estim Creat Clear Calc 38.66 Est GFR (MDRD) Af Amer 42 L Est GFR (MDRD) Non-Af 35 L BUN/Creatinine Ratio 11.2 Glucose 147 H Lactic Acid Calcium 9.4 Total Bilirubin 0.90 AST 23 ALT 25 Alkaline Phosphatase 166 H Troponin I < 0.015 B-Natriuretic Peptide Total Protein 6.5 Albumin 3.4 Globulin 3.1 Albumin/Globulin Ratio 1.1 Lipase 320 Urine Color Urine Clarity Urine pH Ur Specific [place] Urine Protein Urine Glucose (UA) Urine Ketones Urine Occult Blood Urine Nitrite Urine Bilirubin Urine Urobilinogen Ur Leukocyte Esterase Urine RBC Urine WBC Ur Squamous Epith Cells Urine Bacteria Urine Mucus 11/22/20 11/22/20 11/22/20 12:15 12:15 12:35 WBC RBC Hgb Hct MCV MCH MCHC RDW Std Deviation RDW Coeff of Jaun Plt Count MPV Immature Gran % (Auto) Neut % (Auto) Lymph % (Auto) Gila % (Auto) Eos % (Auto) Baso % (Auto) Absolute Neuts (auto) Absolute Lymphs (auto) Nucleated RBC % Diff Path Review PT INR APTT Sodium Potassium Chloride Carbon Dioxide Anion Gap BUN Creatinine Estim Creat Clear Calc Est GFR (MDRD) Af Amer Est GFR (MDRD) Non-Af BUN/Creatinine Ratio Glucose Lactic Acid 0.8 Calcium Total Bilirubin AST ALT Alkaline Phosphatase Troponin I B-Natriuretic Peptide 10.9 Total Protein Albumin Globulin Albumin/Globulin Ratio Lipase Urine Color Yellow Urine Clarity Sl. Cloudy Urine pH 6.5 Ur Specific [place] 1.015 Urine Protein 100 H Urine Glucose (UA) 100 H Urine Ketones 15 H Urine Occult Blood 250 H Urine Nitrite Negative Urine Bilirubin Negative Urine Urobilinogen Normal Ur Leukocyte Esterase 25 H Urine RBC 25-50 SEEN Urine WBC 0-5 SEEN Ur Squamous Epith Cells 5-10 SEEN Urine Bacteria 1+ Urine Mucus 0 SEEN Radiography Diagnostic Testing: Radiology Impression Brain CT 11/22/20 11:14 IMPRESSION: Normal unenhanced CT scan of the brain. Electronically Signed: Rui Baugh MD at 13:02 EDT Tel , Service support , Chest X-Ray 11/22/20 11:14 IMPRESSION: Normal x-ray examination of the chest. Electronically Signed: Rui Baugh MD at 13:03 EDT Tel , Service support , EKG Initial EKG: Attestation: I personally reviewed and interpreted this EKG as follows: Comments: EKG demonstrates a normal sinus rhythm with a right bundle branch block. This appears grossly unchanged from prior. Discharge Plan Triage Chief Complaint: General Illness ED Provider: Elías Ascencio Dx/Rx/DC Orders Clinical Impression: Hypotension, Frequent falls, Contusion of forehead Instructions: ED Low Blood Pressure, All Causes Prescriptions: New ondansetron [ondansetron] 4 MG tablet 4 mg PO Q8H PRN PRN (Reason: Nausea) Qty: 15 RF: 0 No Action lorazepam [Ativan] 0.5 mg tablet 0.5 mg PO DAILY PRNRF: 0 furosemide 40 mg tablet 40 mg PO DAILY Qty: 30 RF: 6 potassium chloride 20 mEq tablet,ER particles/crystals 60 meq PO BID RF: 0 buspirone 10 mg tablet 10 mg PO BID RF: 0 dicyclomine 10 mg capsule 10 mg PO TIDAC RF: 0 rosuvastatin 40 MG tablet 40 mg PO QHS RF: 0 pantoprazole 40 MG tablet 40 mg PO DAILY RF: 0 albuterol sulfate 1 INHALER inhaler 1 - 2 puff inhalation Q4H PRN PRN (Reason: Shortness Of Breath) RF: 0 acetaminophen 325 MG tablet 650 mg PO Q6H PRN PRN (Reason: Mild Pain (1-3)/Temp > 100.7 F) RF: 0 prochlorperazine maleate 10 MG tablet 10 mg PO Q8H PRN (Reason: nausea and vomiting) Qty: 20 RF: 0 guaifenesin 1,200 MG tablet 1,200 mg PO BID Qty: 14 RF: 0 Primary Care Provider: Karl Moran Referrals: Karl Moran MD [Primary Care Provider] - 3-5 Days Disposition Disposition: Home, self care
[2020-11-22] MEDS: Ondansetron 4 MG/2 ML Vial IV (12:16)
[2020-11-22] MEDS: oxyCODONE 5 MG Tablet PO ×2 (12:19→14:07)
[2020-11-22 12:24] LABS: Absolute Lymphocyte Count 0.54 X10^3/uL (0.83-4.51); Absolute Neutrophil Count 2.2 X10^3/uL (2.0-7.7); Basophil# 0.02 X10^3/uL; Basophil% 0.6 % (0-1); Eosinophil# 0.06 X10^3/uL; Eosinophils% 1.9 % (0-5); Hematocrit 37.1 % (37-47); Hemoglobin 11.6 g/dL (12.0-15.0); Lymphocyte # 0.54 X10^3/ul (0.83-4.51); Lymphocyte % 16.9 % (19-41); Mean Corp Hgb Conc 31.3 g/dL (32-36); Mean Corpuscular Volume 89.6 fL (81-99); Mean Platelet Vol. 8.9 fl (6.2-12.0); Monocyte# 0.33 X10^3/uL; Monocyte% 10.3 % (0-10); NRBC Flagged by Analyzer 0 % (0-5); Neutrophil # 2.24 X10^3/uL (2.7-7.7); POSITIVE DIFFERENTIAL YES; Platelet Count 135 K/mm3 (150-450); RBC Distribution Width SD 52.4 fl (35.1-43.9); Red Blood Count 4.14 M/mm3 (4.2-5.4); White Blood Count 3.2 K/mm3 (4.4-11.0)
[2020-11-22 12:33] LABS: Differential Indicated SCAN CRITERIA MET
[2020-11-22 12:38] LABS: Prothrombin Time (Protime)PT. 12.1 SECONDS (11.7-14.9)
[2020-11-22 12:39] LABS: Partial Thromboplast Time 25.5 Seconds (24.1-36.2)
[2020-11-22 12:41] LABS: Mucous, Urine 0 SEEN /hpf (<or=2+)
[2020-11-22 12:43] LABS: Color, Urine Yellow (Yellow); Glucose, Dipstick 100 mg/dl (Normal); Ketone-Dipstick 15 mg/dl (Negative); Leukocyte Esterase-Dipstick 25 /ul (Negative); Nitrite-Dipstick Negative (Negative); Occult Blood-Urine 250 /ul (Negative); Protein-Dipstick 100 mg/dl (Negative); Specific Gravity, Urine 1.015 (1.002-1.030); Urine Bilirubin Dipstick Negative (Negative); Urine Clarity Sl. Cloudy (Clear); Urine Urobilinogen Normal (Normal); Urine pH 6.5 (5.0 - 8.0)
[2020-11-22 12:46] LABS: ALB/GLOB Ratio 1.1 RATIO (0.9-2.4); AST(SGOT) 23 U/L (15-37); Alanine Aminotransfer ALT/SGPT 25 U/L (13-56); Albumin, Serum 3.4 g/dL (3.2-5.0); Alkaline Phosphatase 166 U/L (45-117); Anion Gap 7 (5-15); BUN 18 mg/dL (7-18); BUN/Creat Ratio 11.2 RATIO (10-20); Calcium,Total 9.4 mg/dL (8.5-10.1); Chloride 101 mmol/L (98-107); EST Glomerular Filtration Rate 35 mL/min (>60); Est Glom Filt Rate - Afr Amer 42 mL/min (>60); Estimated Creatinine Clearance 38.66 ml/min; Globulin 3.1 g/dL (2.2-4.2); Glucose 147 mg/dL (74-106); Lipase 320 U/L (73-393); Potassium 3.3 mmol/L (3.5-5.1); Protein, Total 6.5 g/dL (6.4-8.2); Sodium Level 138 mmol/L (136-145)
[2020-11-22 12:52] LABS: Lactic Acid 0.8 mmol/L (0.4-1.9)
[2020-11-22 12:53] LABS: Bacteria 1+ /hpf (None Seen); Red Blood Cells-Urine 25-50 SEEN /hpf (0-5); Squamous Epithelial Cells - UA 5-10 SEEN /hpf (5-10); White Blood Cells 0-5 SEEN /hpf (0-5)
[2020-11-22 12:59] LABS: BNP,B-Type NATRIURETIC PEPTIDE 10.9 pg/mL (0-100)
[2020-11-22] MEDS: Ondansetron ODT 4 MG Tablet PO (14:07)
[2020-11-23 11:55] LABS: Pathologist Review Reviewed
== END 2020-11-22 15:18 | disposition home or self-care (01) ==
PROVIDERS: Emergency Provider Emergency Medicine; PCP Family Medicine
DX: I95.9 Hypotension, unspecified (principal); R29.6 Repeated falls; S00.83XA Contusion of other part of head, initial encounter; W19.XXXA Unspecified fall, initial encounter; Z91.81 History of falling; Y93.9 Activity, unspecified; Y92.9 Unspecified place or not applicable; F41.9 Anxiety disorder, unspecified; E66.01 Morbid (severe) obesity due to excess calories; Z68.41 Body mass index [BMI] 40.0-44.9, adult; E78.5 Hyperlipidemia, unspecified; F32.9 Major depressive disorder, single episode, unspecified; G43.909 Migraine, unspecified, not intractable, without status migrainosus; G47.33 Obstructive sleep apnea (adult) (pediatric); I13.0 Hypertensive heart and chronic kidney disease with heart failure and stage 1 through stage 4 chronic kidney disease, or unspecified chronic kidney disease; N18.1 Chronic kidney disease, stage 1; I50.9 Heart failure, unspecified; I45.10 Unspecified right bundle-branch block; J44.9 Chronic obstructive pulmonary disease, unspecified; K21.9 Gastro-esophageal reflux disease without esophagitis; M19.90 Unspecified osteoarthritis, unspecified site; Z86.2 Personal history of diseases of the blood and blood-forming organs and certain disorders involving the immune mechanism; Z87.19 Personal history of other diseases of the digestive system; Z86.16 Personal history of COVID-19; Z86.19 Personal history of other infectious and parasitic diseases; Z87.01 Personal history of pneumonia (recurrent); Z79.899 Other long term (current) drug therapy; Z87.891 Personal history of nicotine dependence; Z99.81 Dependence on supplemental oxygen
CPT/HCPCS: 70450; 71045; 80053; 81001; 83605; 83690; 83880; 84484; 85025; 85610; 85730; 93005; 96374; 99285; A4216; J2405

== ENCOUNTER 2021-01-13 18:53 | Inpatient (IN) | payer OTHER, MEDICARE, SELFPAY ==
[2021-01-13 18:53] VITALS: BMI 40.4
[2021-01-13 18:57] VITALS: BP 98/70; PULSE 105; RESP 17; TEMP 36; O2SAT 96; BMI 31.1
--- NOTE | 2021-01-13 20:18 | EX.ED.SAOD ---
HPI History of Present Illness Chief Complaint: Substance Abuse Narrative Narrative: 60-year-old female presenting with desire for alcohol detox. She states she last detoxed in August. She has been drinking about a gallon of wine a day. She states her last drink was noon today. She does states with withdrawal that she does have severe symptoms of nausea, vomiting, confusion. She denies history of seizures with detox. The last time she detox was at [facility] in August. Patient does have a prescription for marijuana. She denies other illicit drugs. [facility] Medical History (Updated 01/13/21 @ 22:34 by Trena Abdalla, JASON-C) Abdominal pain Abnormal liver CT Anemia Anxiety Arthritis Asthma Bronchiectasis Bronchitis Chronic renal failure Chronic renal insufficiency, stage I Colitis Colitis with rectal bleeding COPD (chronic obstructive pulmonary disease) Depression DVT (deep venous thrombosis) Endocarditis Essential (primary) hypertension Gastritis Gastroesophageal reflux disease History of diarrhea History of umbilical hernia HLD (hyperlipidemia) Idiopathic right ventricular dilation Leukopenia Migraine Morbid obesity GENNARO (obstructive sleep apnea) Osteoarthritis Pancytopenia Pneumonia Respiratory failure with hypoxia Respiratory insufficiency Respiratory tract infection due to COVID-19 virus Restrictive lung disease Right bundle branch block (RBBB) Right ventricular systolic dysfunction Sepsis Thrombocytopenia Home Medications albuterol sulfate 1 - 2 puff INHALATION Q4H PRN PRN 12/09/18 [History Last Taken Unknown] pantoprazole 40 mg PO DAILY 12/09/18 [History Last Taken 10/01/19] rosuvastatin 40 mg PO QHS 12/09/18 [History Last Taken 12/21/18] acetaminophen 650 mg PO Q6H PRN PRN tab 12/13/18 [Rx Last Taken Unknown] guaifenesin 1,200 mg PO BID #14 tab 10/11/19 [Rx Last Taken Unknown] buspirone 10 mg tablet 10 mg PO BID tab 10/23/19 [History Last Taken Unknown] dicyclomine 10 mg capsule 10 mg PO TIDAC cap 10/23/19 [History Last Taken Unknown] potassium chloride 20 mEq tablet,extended release(part/cryst) 20 meq PO BID tab 10/23/19 [History Last Taken Unknown] furosemide 40 mg tablet 40 mg PO DAILY #30 tab 11/05/19 [Rx Last Taken Unknown] lorazepam 0.5 mg tablet 0.5 mg PO DAILY PRN 11/05/19 [History Last Taken Unknown] ondansetron 4 mg PO Q8H PRN PRN #15 tab 11/22/20 [Rx Last Taken Unknown] Allergy/AdvReac Type Severity Reaction Status Date / Time Penicillins Allergy Hives Verified 01/13/21 18:53 DUST Allergy itchy eyes Uncoded 01/13/21 18:53 SEASONAL Allergy itchy eyes Uncoded 01/13/21 18:53 Family History Father Colon cancer Mother Cancer pancreatic Surgical History History of appendectomy History of cholecystectomy History of hysterectomy History of tubal ligation Social History Smoking Status: Former smoker Tobacco: How many years used: 25 how long ago did patient quit smokin, 0.5ppd second hand exposure: Yes alcohol intake: never ROS ROS ED Constitutional Constitutional ED: Denies chills, fever(s) or subjective Eyes Eyes: Denies blurry vision or diplopia ENT ENT ED: Denies rhinorrhea or sore throat Cardiovascular Cardiovascular: Denies chest pain or palpitations Respiratory/Chest Respiratory/Chest: Denies cough, dyspnea or sputum Gastrointestinal Gastrointestinal: Denies abdominal pain, diarrhea, nausea or vomiting Genitourinary Genitourinary ED: Denies dysuria or urinary frequency Musculoskeletal Musculoskeletal: Denies arthralgias or myalgias Integumentary Denies rash Neurologic Neurologic: Denies headache(s) Psychiatric Psychiatric: Reports depression; Denies suicidal ideation or suicidal thoughts EXAM Physical Exam Const Vital Signs: 01/13/21 18:57 01/13/21 20:45 01/13/21 20:52 Temperature 96.8 F L Temperature Source Temporal Pulse Rate 105 H 97 Respiratory Rate 17 18 18 Blood Pressure 98/70 125/78 H Blood Pressure Mean 79 93 Pulse Ox 96 95 Oxygen Delivery Method Room Air Nasal Cannula Oxygen Flow Rate (L/min) 4 Positive obese General Appearance ED: NAD; Negative for pallor Nutritional Appearance: obese HEENT Reports moist mucous membranes atraumatic Eyes PERRL and EOMs intact bilaterally General Eye ED: Negative for pale conjunctiva or scleral icterus Resp normal respiratory effort and clear to auscultation bilaterally Cardio regular rhythm Rate: tachycardic GI soft to palpation, non-tender and non-distended Neuro oriented x3 Sensorium / Orientation: alert Psych Mood & Affect: depressed and tearful Skin General Skin Exam: Negative for jaundice or pallor Lesions: no lesions Rashes: no rashes MDM MDM MDM Narrative Medical decision making narrative: Patient presenting for EtOH detox. Last drink was about noon today. Patient states he drinks about a gallon of wine daily. Patient is on oxygen but is wearing her baseline. She has some anxiety and self-proclaimed self-loathing. She states that she feels bad that she has to be here for detox. I did tell the patient that I am just here to help her and that I am not judging her and I will get her the help she needs once we get her medically cleared. She was receptive to this. Patient's blood work-up was unremarkable with exception of a slight bump in her LFTs. Urine drug screen is positive for marijuana however patient is prescribed this. EtOH is elevated at 281. Patient was given Ativan for her anxiety and has been doing well. Patient discussed with hospitalist for admission for EtOH detox. Impression: 1. EtOH intoxication 2. Request for EtOH detox Lab Data Labs: Laboratory Results - last 24 hr 01/13/21 01/13/21 01/13/21 20:38 20:45 20:45 WBC 5.0 RBC 4.39 Hgb 12.4 Hct 39.7 MCV 90.4 MCH 28.2 MCHC 31.2 L RDW Std Deviation 47.9 H RDW Coeff of Jaun 14.8 H Plt Count 162 MPV 9.5 Immature Gran % (Auto) 0.200 Neut % (Auto) 61.1 Lymph % (Auto) 30.8 [place] % (Auto) 7.3 Eos % (Auto) 0.2 Baso % (Auto) 0.4 Absolute Neuts (auto) 3.1 Absolute Lymphs (auto) 1.55 Nucleated RBC % 0 PT 12.4 INR 1.0 Sodium Potassium Chloride Carbon Dioxide Anion Gap BUN Creatinine Estim Creat Clear Calc Est GFR (MDRD) Af Amer Est GFR (MDRD) Non-Af BUN/Creatinine Ratio Glucose Calcium Total Bilirubin AST ALT Alkaline Phosphatase Total Protein Albumin Globulin Albumin/Globulin Ratio Lipase Urine Opiates Screen NEGATIVE Urine Methadone Screen NEGATIVE Ur Barbiturates Screen NEGATIVE Ur Phencyclidine Scrn NEGATIVE Ur Amphetamines Screen NEGATIVE U Methamphetamin-MDMA NEGATIVE U Benzodiazepines Scrn NEGATIVE Urine Cocaine Screen NEGATIVE U Cannabinoids Screen POSITIVE H Ur Drug Screen Comment Ethyl Alcohol 01/13/21 01/13/21 20:45 20:45 WBC RBC Hgb Hct MCV MCH MCHC RDW Std Deviation RDW Coeff of Jaun Plt Count MPV Immature Gran % (Auto) Neut % (Auto) Lymph % (Auto) [place] % (Auto) Eos % (Auto) Baso % (Auto) Absolute Neuts (auto) Absolute Lymphs (auto) Nucleated RBC % PT INR Sodium 142 Potassium 3.5 Chloride 101 Carbon Dioxide 31.0 Anion Gap 10 BUN 16 Creatinine 1.20 H Estim Creat Clear Calc 49.09 Est GFR (MDRD) Af Amer 59 L Est GFR (MDRD) Non-Af 49 L BUN/Creatinine Ratio 13.3 Glucose 128 H Calcium 8.5 Total Bilirubin 1.00 AST 56 H ALT 69 H Alkaline Phosphatase 145 H Total Protein 7.1 Albumin 3.9 Globulin 3.2 Albumin/Globulin Ratio 1.2 Lipase 232 Urine Opiates Screen Urine Methadone Screen Ur Barbiturates Screen Ur Phencyclidine Scrn Ur Amphetamines Screen U Methamphetamin-MDMA U Benzodiazepines Scrn Urine Cocaine Screen U Cannabinoids Screen Ur Drug Screen Comment Ethyl Alcohol 281.0 Discharge Plan Disposition Disposition: Acute Care Hospital [facility] Discharge Date/Time: 01/13/21 22:51
[2021-01-13 20:45] VITALS: RESP 18
[2021-01-13] MEDS: LORazepam 2 MG/ML Syringe 1 MG IV ×2 (20:51→21:38)
[2021-01-13] MEDS: 0.9% Normal Saline 1,000 ML 999 ML IV (20:51)
[2021-01-13 20:52] VITALS: BP 125/78; PULSE 97; RESP 18; O2SAT 95
[2021-01-13 20:59] LABS: Amphetamine Urine VISTA NEGATIVE (<1000 ng/mL); Barbiturate Urine VISTA NEGATIVE (< 200 ng/mL); Benzodiazepine Urine VISTA NEGATIVE (< 200 ng/mL); Cocaine Urine VISTA NEGATIVE (< 300 ng/mL); Ecstacy Urine VISTA NEGATIVE (< 500 ng/mL); Methadone Urine VISTA NEGATIVE (< 300 ng/mL); PCP Urine VISTA NEGATIVE (< 25 ng/mL); THC Urine VISTA POSITIVE (< 50 ng/mL); Vista UDS pH Range 6
[2021-01-13 21:00] LABS: Absolute Lymphocyte Count 1.55 X10^3/uL (0.83-4.51); Absolute Neutrophil Count 3.1 X10^3/uL (2.0-7.7); Basophil# 0.02 X10^3/uL; Basophil% 0.4 % (0-1); Eosinophil# 0.01 X10^3/uL; Eosinophils% 0.2 % (0-5); Hematocrit 39.7 % (37-47); Hemoglobin 12.4 g/dL (12.0-15.0); Lymphocyte # 1.55 X10^3/ul (0.83-4.51); Lymphocyte % 30.8 % (19-41); Mean Corp Hgb Conc 31.2 g/dL (32-36); Mean Corpuscular Hgb 28.2 pg (27.0-32.0); Mean Corpuscular Volume 90.4 fL (81-99); Mean Platelet Vol. 9.5 fl (6.2-12.0); Monocyte# 0.37 X10^3/uL; Monocyte% 7.3 % (0-10); NRBC Flagged by Analyzer 0 % (0-5); Neutrophil # 3.08 X10^3/uL (2.7-7.7); Neutrophil % 61.1 % (47-70); Platelet Count 162 K/mm3 (150-450); RBC Distribution Width CV 14.8 % (11.6-14.6); RBC Distribution Width SD 47.9 fl (35.1-43.9); Red Blood Count 4.39 M/mm3 (4.2-5.4)
[2021-01-13 21:11] LABS: Prothrombin Time (Protime)PT. 12.4 SECONDS (11.7-14.9)
[2021-01-13 21:17] LABS: ALB/GLOB Ratio 1.2 RATIO (0.9-2.4); AST(SGOT) 56 U/L (15-37); Alanine Aminotransfer ALT/SGPT 69 U/L (13-56); Albumin, Serum 3.9 g/dL (3.2-5.0); Alkaline Phosphatase 145 U/L (45-117); Anion Gap 10 (5-15); BUN 16 mg/dL (7-18); BUN/Creat Ratio 13.3 RATIO (10-20); Calcium,Total 8.5 mg/dL (8.5-10.1); Chloride 101 mmol/L (98-107); EST Glomerular Filtration Rate 49 mL/min (>60); Est Glom Filt Rate - Afr Amer 59 mL/min (>60); Estimated Creatinine Clearance 49.09 ml/min; Globulin 3.2 g/dL (2.2-4.2); Glucose 128 mg/dL (74-106); Lipase 232 U/L (73-393); Potassium 3.5 mmol/L (3.5-5.1); Protein, Total 7.1 g/dL (6.4-8.2); Sodium Level 142 mmol/L (136-145)
--- NOTE | 2021-01-13 22:27 | PCM.HP.STD ---
Documented by User: LUCA Dixon 01/13/21 22:41 HPI - General General Date of Admission: 01/13/21 Date of Service: 01/13/21 Chief Complaint: Desire for detoxification from alcohol HPI Narrative ALFIE HOGAN, is a 60 F who presents with desire to detox from alcohol. Patient states that she went through detoxification from alcohol in August at [facility]. Patient states that she is currently drinking up to a gallon of wine a day. Patient states her last drink was at noon. Patient complains of anxiety, restlessness, nausea, vomiting. Patient denies history of seizures with withdrawal. Patient states that she also uses marijuana and has a medical marijuana card. [facility] Medical History (Updated 01/13/21 @ 23:[address] Javier Xiao MD) Abdominal pain Abnormal liver CT Anemia Anxiety Arthritis Asthma Bronchiectasis Bronchitis Chronic renal failure Chronic renal insufficiency, stage I Colitis Colitis with rectal bleeding COPD (chronic obstructive pulmonary disease) Depression DVT (deep venous thrombosis) Endocarditis Essential (primary) hypertension Gastritis Gastroesophageal reflux disease History of diarrhea History of umbilical hernia HLD (hyperlipidemia) Idiopathic right ventricular dilation Leukopenia Migraine Morbid obesity GENNARO (obstructive sleep apnea) Osteoarthritis Pancytopenia Pneumonia Respiratory failure with hypoxia Respiratory insufficiency Respiratory tract infection due to COVID-19 virus Restrictive lung disease Right bundle branch block (RBBB) Right ventricular systolic dysfunction Sepsis Thrombocytopenia Home Medications albuterol sulfate 1 - 2 puff INHALATION Q4H PRN PRN 12/09/18 [History Last Taken Unknown] pantoprazole 40 mg PO DAILY 12/09/18 [History Last Taken 10/01/19] rosuvastatin 40 mg PO QHS 12/09/18 [History Last Taken 12/21/18] acetaminophen 650 mg PO Q6H PRN PRN tab 12/13/18 [Rx Last Taken Unknown] buspirone 10 mg tablet 10 mg PO BID tab 10/23/19 [History Last Taken Unknown] dicyclomine 10 mg capsule 10 mg PO TIDAC cap 10/23/19 [History Last Taken Unknown] potassium chloride 20 mEq tablet,extended release(part/cryst) 20 meq PO BID tab 10/23/19 [History Last Taken Unknown] lorazepam 0.5 mg tablet 0.5 mg PO DAILY PRN 11/05/19 [History Last Taken Unknown] furosemide [Lasix] 20 mg PO DAILY 01/13/21 [History Last Taken 01/13/21] Allergy/AdvReac Type Severity Reaction Status Date / Time Penicillins Allergy Hives Verified 01/13/21 18:53 DUST Allergy itchy eyes Uncoded 01/13/21 18:53 SEASONAL Allergy itchy eyes Uncoded 01/13/21 18:53 Family History Father Colon cancer Mother Cancer pancreatic Surgical History History of appendectomy History of cholecystectomy History of hysterectomy History of tubal ligation Social History Smoking Status: Former smoker Tobacco: How many years used: 25 how long ago did patient quit smokin, 0.5ppd second hand exposure: Yes alcohol intake: never ROS Constitutional Constitutional: Denies anorexia, chills, fatigue, fever(s) or weakness Cardiovascular Cardiovascular: Denies chest pain, edema or palpitations Respiratory/Chest Respiratory/Chest: Denies cough, shortness of breath at rest or shortness of breath with exertion Gastrointestinal Gastrointestinal: Reports nausea and vomiting; Denies abdominal pain, constipation or diarrhea Genitourinary Genitourinary: Denies dysuria Musculoskeletal Musculoskeletal: Denies back pain, extremity pain, joint pain or joint stiffness Integumentary Integumentary: Denies dry skin Neurologic Neurologic: Reports restless legs; Denies abnormal gait, abnormal speech, confusion, dizziness or focal weakness Psychiatric Psychiatric: Reports anxiety Endocrine Endocrinology: Denies change in body appearance Hematologic/Lymphatic Hematologic/Lymphatic: Denies easy bleeding or easy bruising Vital Signs Vital Signs Vital Signs: 01/13/21 18:57 01/13/21 20:45 01/13/21 20:52 Temperature 96.8 F L Temperature Source Temporal Pulse Rate 105 H 97 Respiratory Rate 17 18 18 Blood Pressure 98/70 125/78 H Blood Pressure Mean 79 93 Pulse Ox 96 95 Oxygen Delivery Method Room Air Nasal Cannula Oxygen Flow Rate (L/min) 4 Weight Weight: 198 lb 6.656 oz Body Mass Index (BMI) 31.1 Physical Exam Const alert, oriented x3 and no apparent distress General Appearance: cooperative HEENT normocephalic and head/scalp atraumatic Eyes conjunctivae normal and no scleral icterus Neck supple and no JVD General: trachea midline Resp normal respiratory effort, normal air movement and clear to auscultation bilaterally Cardio regular rate, regular rhythm, S1 normal heart sound and S2 normal heart sound GI normal to inspection, nondistended, normoactive bowel sounds, soft to palpation and non-tender Extremity normal capillary refill and no clubbing, cyanosis or edema General Extremity: no tenderness to palpation of joints or extremities Skin General Skin Exam: no breakdown and turgor normal Lesions: no lesions Rashes: no rashes Neuro no focal motor deficits and no sensory deficits noted Speech: speech normal Motor Exam: Negative for general weakness Psych cooperative Appearance: appropriate Activity / Motor Behavior: hyperactive Mood & Affect: anxious Results Lab / Micro Data Result Diagrams: 01/13/21 20:45 01/13/21 20:45 Labs: Laboratory Results - last 24 hr 01/13/21 20:38: Urine Opiates Screen NEGATIVE, Urine Methadone Screen NEGATIVE, Ur Barbiturates Screen NEGATIVE, Ur Phencyclidine Scrn NEGATIVE, Ur Amphetamines Screen NEGATIVE, U Methamphetamin-MDMA NEGATIVE, U Benzodiazepines Scrn NEGATIVE, Urine Cocaine Screen NEGATIVE, U Cannabinoids Screen POSITIVE H, Ur Drug Screen Comment 01/13/21 20:45: WBC 5.0, RBC 4.39, Hgb 12.4, Hct 39.7, MCV 90.4, MCH 28.2, MCHC 31.2 L, RDW Std Deviation 47.9 H, RDW Coeff of Jaun 14.8 H, Plt Count 162, MPV 9.5, Immature Gran % (Auto) 0.200, Neut % (Auto) 61.1, Lymph % (Auto) 30.8, [place] % (Auto) 7.3, Eos % (Auto) 0.2, Baso % (Auto) 0.4, Absolute Neuts (auto) 3.1, Absolute Lymphs (auto) 1.55, Nucleated RBC % 0 01/13/21 20:45: PT 12.4, INR 1.0 01/13/21 20:45: Sodium 142, Potassium 3.5, Chloride 101, Carbon Dioxide 31.0, Anion Gap 10, BUN 16, Creatinine 1.20 H, Estim Creat Clear Calc 49.09, Est GFR (MDRD) Af Amer 59 L, Est GFR (MDRD) Non-Af 49 L, BUN/Creatinine Ratio 13.3, Glucose 128 H, Calcium 8.5, Total Bilirubin 1.00, AST 56 H, ALT 69 H, Alkaline Phosphatase 145 H, Total Protein 7.1, Albumin 3.9, Globulin 3.2, Albumin/Globulin Ratio 1.2, Lipase 232 01/13/21 20:45: Ethyl Alcohol 281.0 Assessment & Plan Assessment/Plan (1) Desire for detoxification: (2) Alcohol abuse: (3) Medical marijuana use: PLAN: 1. Desire for detoxification from alcohol -Admit to medical surgical for participation in the ramp program -Phenobarbital taper ordered along with supportive medications -Thiamine and folic acid ordered per protocol 2. Hypertension -Continue home medications -Vital signs per protocol 3. COPD -Continue as needed albuterol for shortness of breath -Patient baseline 4 L nasal cannula, no increased oxygen needs at this time 4. Obstructive sleep apnea -CPAP ordered per home settings 5. Marijuana use -Patient states that she has a medical marijuana card DVT prophylaxis-subcu Lovenox This patient was seen by Trena Abdalla NP-C under the supervision of Dr. Xiao. Documented by User: Dr. Javier Xiao MD 01/13/21 23:34 HPI - General General Date of Admission: 01/13/21 Date of Service: 01/13/21 Chief Complaint: Alcohol withdrawal syndrome HPI Narrative This 60-year-old female with history of bronchiectasis, COPD/asthma, GENNARO, pulmonary hypertension/chronic cor pulmonale came to ED for alcohol detox. She drinks 1 big bottle of wine every day. She had last detoxed in August. Currently she is having restlessness, anxiety attack aches and pain. Denies confusion, nausea, vomiting, hallucination or delusion. She further states she is going through divorce. She was admitted in October 2019 for COVID-19 pneumonia. 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 Padron. [facility] Medical History (Updated 01/13/21 @ 23:[address] Javier Xiao MD) Abdominal pain Abnormal liver CT Anemia Anxiety Arthritis Asthma Bronchiectasis Bronchitis Chronic renal failure Chronic renal insufficiency, stage I Colitis Colitis with rectal bleeding COPD (chronic obstructive pulmonary disease) Depression DVT (deep venous thrombosis) Endocarditis Essential (primary) hypertension Gastritis Gastroesophageal reflux disease History of diarrhea History of umbilical hernia HLD (hyperlipidemia) Idiopathic right ventricular dilation Leukopenia Migraine Morbid obesity GENNARO (obstructive sleep apnea) Osteoarthritis Pancytopenia Pneumonia Respiratory failure with hypoxia Respiratory insufficiency Respiratory tract infection due to COVID-19 virus Restrictive lung disease Right bundle branch block (RBBB) Right ventricular systolic dysfunction Sepsis Thrombocytopenia Home Medications albuterol sulfate 1 - 2 puff INHALATION Q4H PRN PRN 12/09/18 [History Last Taken Unknown] pantoprazole 40 mg PO DAILY 12/09/18 [History Last Taken 10/01/19] rosuvastatin 40 mg PO QHS 12/09/18 [History Last Taken 12/21/18] acetaminophen 650 mg PO Q6H PRN PRN tab 12/13/18 [Rx Last Taken Unknown] buspirone 10 mg tablet 10 mg PO BID tab 10/23/19 [History Last Taken Unknown] dicyclomine 10 mg capsule 10 mg PO TIDAC cap 10/23/19 [History Last Taken Unknown] potassium chloride 20 mEq tablet,extended release(part/cryst) 20 meq PO BID tab 10/23/19 [History Last Taken Unknown] lorazepam 0.5 mg tablet 0.5 mg PO DAILY PRN 11/05/19 [History Last Taken Unknown] furosemide [Lasix] 20 mg PO DAILY 01/13/21 [History Last Taken 01/13/21] Allergy/AdvReac Type Severity Reaction Status Date / Time Penicillins Allergy Hives Verified 01/13/21 18:53 DUST Allergy itchy eyes Uncoded 01/13/21 18:53 SEASONAL Allergy itchy eyes Uncoded 01/13/21 18:53 Family History Father Colon cancer Mother Cancer pancreatic Surgical History History of appendectomy History of cholecystectomy History of hysterectomy History of tubal ligation Social History Smoking Status: Former smoker Tobacco: How many years used: 25 how long ago did patient quit smokin, 0.5ppd second hand exposure: Yes alcohol intake: never Physical Exam Narrative General: Alert, Oriented x3, Cooperative, restless HEENT: Atraumatic, PERRLA, EOMI, Normocephalic Oral: No Gingival or Mucosal Lesions/ Ulcerations Neck: Supple, No JVD, Negative Carotid Bruits Lungs: Air entry diminished in bilateral lung bases. Bilateral expiratory rhonchi present Cardiovascular: Regular rate, Regular Rhythm, Normal S1, Normal S2, No murmurs Abdomen: Bowel Sounds Present, Soft, Non Tender, Non-Distended : No renal angle tenderness. No suprapubic tenderness. Extremities: Mild ankle edema, Capillary Refill Less than 3 Seconds Skin: No rashes, No breakdown Musculoskeletal: No Tenderness to Palpation of Joints or Extremities Neurological: Cranial nerves II-XII grossly intact, DTR 2+/4 and Symmetrical, Neuro grossly intact Psych/Mental Status: Starts crying, sadness. Denies suicidal attempt Results Lab / Micro Data Result Diagrams: 01/13/21 20:45 01/13/21 20:45 Assessment & Plan Assessment/Plan (1) Acute hyperactive alcohol withdrawal delirium: PLAN: This patient was seen in conjunction with JASON Albrecht. I have independently interviewed and examined the patient and reviewed pertinent history, examination findings, laboratory and plan of management. I have reviewed the note and agree with the documented findings with the few additional points. In brief, patient is admitted for acute alcohol withdrawal syndrome for medical stabilization on the floor. Patient is on phenobarbital and other adjunctive medications. Thiamine and folic acid. Patient is also on medical marijuana. She has history of chronic hypoxic respiratory failure due to COPD, pulmonary hypertension, GENNARO, chronic cor pulmonale and follows Dr. Padron. Her last echo in January 2019 shows EF 65% with moderately dilated RV with global systolic dysfunction. Trivial MR and TR. RVSP 33 mmHg. She is on 3 L of oxygen and uses BiPAP at night. Other comorbidities as mentioned above I have discussed my assessment with JASON Albrecht and orders have been reviewed. Living will/advanced directive/end of life care: Patient states she has living will or advanced directive but is not is scanned into our system. After discussion of benefits/risks procedures involved with full code, DNR CC arrest and DNR CC, the patient opted for DNR-CC Arrest with no intubation Patient does not want artificial life support including intubation, tube feed, ventilator and/chest compression, central venous catheter, vasopressor and DC shock if needed Total time spent in [id number] encounter in discussion of advanced directive 16 minutes. Charges/Coding Visit Charges Inpatient E&M: 09993 Init Hosp L3 Procedures Hospitalists Procedures: 27482 Advncd Care Plan 30 Min
[2021-01-13 22:50] VITALS: BP 125/78; PULSE 97; RESP 18; TEMP 36; O2SAT 95
[2021-01-13 23:14] VITALS: BMI 40.1
[2021-01-13 23:19] VITALS: O2SAT 97
[2021-01-13] MEDS: Ondansetron 8 MG Tablet PO (23:27)
[2021-01-13] MEDS: Lactated Ringers 1,000 ML 125 ML IV (23:27)
[2021-01-13] MEDS: 0.9% Saline Lock 10 ML Syringe IV (23:27)
[2021-01-13] MEDS: traZODone 100 MG Tablet PO (23:27)
[2021-01-13] MEDS: Phenobarbital 32.4 MG Tablet PO (23:27)
--- NOTE | 2021-01-13 23:28 | CPS ---
Patient's home BiPAP setup at bedside with 5L O2 bled in per home regimen. Will monitor patient overnight.
[2021-01-13 23:30] VITALS: BP 115/92; PULSE 106; RESP 18; TEMP 37.1; O2SAT 97
[2021-01-13] MEDS: Gabapentin 300 MG Capsule PO (23:51)
[2021-01-13] MEDS: Atorvastatin Calcium 80 MG Tablet PO (23:51)
[2021-01-14 03:11] VITALS: BP 120/73; PULSE 106; RESP 18; TEMP 37.1; O2SAT 96
[2021-01-14] MEDS: Phenobarbital 32.4 MG Tablet PO ×6 (03:18→22:46)
[2021-01-14] MEDS: hydrOXYzine PAM 25 MG Capsule 50 MG PO ×2 (03:18→12:13)
[2021-01-14 06:34] VITALS: BP 134/83; PULSE 101; RESP 16; TEMP 36.8; O2SAT 100
[2021-01-14] MEDS: Thiamine Hydrochloride 100 MG Tablet PO (06:39)
[2021-01-14] MEDS: Folic Acid 1 MG Tablet PO (06:39)
--- NOTE | 2021-01-14 07:32 | PCM.PN.HOSP ---
Subjective Subjective Patient is a 60-year-old lady with history of alcohol dependence admitted for medical stabilization Objective Data Objective Data Vital Signs: Vital Signs Temp Pulse Resp BP Pulse Ox 98.3 F 101 H 16 134/83 H 100 01/14/21 06:34 01/14/21 06:34 01/14/21 06:34 01/14/21 06:34 01/14/21 06:34 Oxygen Flow Rate (L/min) 4 Oxygen Delivery Method Nasal Cannula Weight: 119.839 kg Body Mass Index (BMI) 40.1 Intake & Output: Intake and Output for Last 24 Hours 01/12/21 01/13/21 01/14/21 23:59 23:59 23:59 Intake Total 1000 / 1000 500 / 500 Output Total 350 / 350 Balance 1000 / 1000 150 / 150 Lab / Micro Data Result Diagrams: 01/13/21 20:45 01/13/21 20:45 Labs: Laboratory Results - last 24 hr 01/13/21 20:38: Urine Opiates Screen NEGATIVE, Urine Methadone Screen NEGATIVE, Ur Barbiturates Screen NEGATIVE, Ur Phencyclidine Scrn NEGATIVE, Ur Amphetamines Screen NEGATIVE, U Methamphetamin-MDMA NEGATIVE, U Benzodiazepines Scrn NEGATIVE, Urine Cocaine Screen NEGATIVE, U Cannabinoids Screen POSITIVE H, Ur Drug Screen Comment 01/13/21 20:45: WBC 5.0, RBC 4.39, Hgb 12.4, Hct 39.7, MCV 90.4, MCH 28.2, MCHC 31.2 L, RDW Std Deviation 47.9 H, RDW Coeff of Jaun 14.8 H, Plt Count 162, MPV 9.5, Immature Gran % (Auto) 0.200, Neut % (Auto) 61.1, Lymph % (Auto) 30.8, [place] % (Auto) 7.3, Eos % (Auto) 0.2, Baso % (Auto) 0.4, Absolute Neuts (auto) 3.1, Absolute Lymphs (auto) 1.55, Nucleated RBC % 0 01/13/21 20:45: PT 12.4, INR 1.0 01/13/21 20:45: Sodium 142, Potassium 3.5, Chloride 101, Carbon Dioxide 31.0, Anion Gap 10, BUN 16, Creatinine 1.20 H, Estim Creat Clear Calc 49.09, Est GFR (MDRD) Af Amer 59 L, Est GFR (MDRD) Non-Af 49 L, BUN/Creatinine Ratio 13.3, Glucose 128 H, Calcium 8.5, Total Bilirubin 1.00, AST 56 H, ALT 69 H, Alkaline Phosphatase 145 H, Total Protein 7.1, Albumin 3.9, Globulin 3.2, Albumin/Globulin Ratio 1.2, Lipase 232 01/13/21 20:45: Ethyl Alcohol 281.0 Physical Exam Narrative GENERAL: cooperative HEENT: Atraumatic; EYES; Anicteric, Normal Conjunctiva NECK; supple, normal thyroid, RESPIRATORY: Diminished to auscultation CARDIOVASCULAR: Regular S1 S2, GI: soft, normoactive bowel sounds, : No Renal angle tenderness; EXTREMITIES: No edema, no clubbing, MUSCULOSKELETAL: no muscle waisting NEURO: Awake; no lateralizing signs. SKIN: No Rash PSYCH; Flat affect Assessment & Plan Assessment/Plan (1) Acute hyperactive alcohol withdrawal delirium: PLAN: Patient is a 60-year-old lady with history of alcohol dependence admitted for medical stabilization 1. Acute alcohol withdrawal ?Patient has been admitted to regular nursing floor for medical stabilization using the ramp protocol with phenobarb taper 2. Obesity BMI of 40.2 ?Weight loss advised 3. Chronic hypoxic respiratory failure ?Secondary to COPD patient is on baseline home oxygen 4. Obstructive sleep apnea ?Patient is on BiPAP at night 5. Dyslipidemia -Patient is on statin therapy, continued at home dose 6. GERD ?Patient is on PPI 7. DVT prophylaxis - On enoxaparin Charges/Coding Visit Charges Inpatient E&M: 11834 Subs Hosp L2
[2021-01-14 09:44] VITALS: BP 141/83; PULSE 102; RESP 18; TEMP 36.9; O2SAT 100
[2021-01-14] MEDS: Enoxaparin 40 MG/0.4 ML Syringe SC (09:49)
[2021-01-14] MEDS: Potassium Chloride Oral Tablet 20 MEQ PO ×2 (09:49→21:13)
[2021-01-14] MEDS: Furosemide 40 MG Tablet PO (09:49)
[2021-01-14] MEDS: Pantoprazole Sodium 40 MG Tablet PO (09:49)
[2021-01-14] MEDS: Gabapentin 300 MG Capsule PO ×2 (09:56→20:07)
[2021-01-14] MEDS: Ondansetron 8 MG Tablet PO ×2 (11:02→18:42)
[2021-01-14] MEDS: Loperamide 2 MG Capsule PO (11:02)
[2021-01-14] MEDS: LORazepam 0.5 MG Tablet PO (12:13)
--- NOTE | 2021-01-14 13:15 | ADDICTION ---
This sheet writer met with PT to conduct ASAM, MSE, AUDIT assessments and to plan for d/c. PT A+Ox4 and participated actively. All assessments completed, faxed to [facility] and placed in PT's chart. PT plans to f/u with individual counselor at [facility] for follow-up counseling services and treatment planning. PT declined residential recommendation at this time. She reports the family would like to decide together her next step in recovery. PT will be picked up and transported home by sister Laura at 5pm on 01/17 [facility]
[2021-01-14 15:58] VITALS: BP 124/77; PULSE 99; RESP 18; TEMP 37.2; O2SAT 99
[2021-01-14 20:00] VITALS: BP 133/62; PULSE 72; RESP 18; TEMP 36.9; O2SAT 100
[2021-01-14] MEDS: traZODone 100 MG Tablet PO (21:13)
[2021-01-14] MEDS: Atorvastatin Calcium 80 MG Tablet PO (21:14)
[2021-01-14] MEDS: Pramipexole Di-HCl 0.5 MG Tablet PO (21:14)
[2021-01-15 02:34] VITALS: BP 114/56; PULSE 89; RESP 16; TEMP 36.6; O2SAT 100
[2021-01-15] MEDS: Phenobarbital 32.4 MG Tablet PO ×6 (02:40→23:38)
[2021-01-15] MEDS: Acetaminophen 500 MG Tablet PO ×2 (02:48→21:30)
[2021-01-15] MEDS: Gabapentin 300 MG Capsule PO ×3 (06:36→23:39)
--- NOTE | 2021-01-15 08:03 | PCM.PN.HOSP ---
Subjective Subjective Patient seen; per nursing staff apparently fell off the bed she did complain of left knee as well as left ankle pain. X-rays ordered for subsequent evaluation. She denied hitting her head Objective Data Objective Data Vital Signs: Vital Signs Temp Pulse Resp BP Pulse Ox 97.9 F 89 16 114/56 L 100 01/15/21 02:34 01/15/21 02:34 01/15/21 02:34 01/15/21 02:34 01/15/21 02:34 Oxygen Flow Rate (L/min) 4 Oxygen Delivery Method Nasal Cannula Weight: 119.839 kg Body Mass Index (BMI) 40.1 Intake & Output: Intake and Output for Last 24 Hours 01/13/21 01/14/21 01/15/21 23:59 23:59 23:59 Intake Total 1000 / 1000 2650 / 3550 900 / 900 Output Total 350 / 1150 800 / 800 Balance 1000 / 1000 2300 / 2400 100 / 100 Lab / Micro Data Result Diagrams: 01/13/21 20:45 01/13/21 20:45 Physical Exam Narrative GENERAL: cooperative HEENT: Atraumatic; EYES; Anicteric, Normal Conjunctiva NECK; supple, normal thyroid, RESPIRATORY: Diminished to auscultation CARDIOVASCULAR: Regular S1 S2, GI: soft, normoactive bowel sounds, : No Renal angle tenderness; EXTREMITIES: No edema, no clubbing, MUSCULOSKELETAL: no muscle waisting NEURO: Awake; no lateralizing signs. SKIN: No Rash PSYCH; Flat affect Assessment & Plan Assessment/Plan (1) Acute hyperactive alcohol withdrawal delirium: PLAN: Patient is a 60-year-old lady with history of alcohol dependence admitted for medical stabilization 1. Acute alcohol withdrawal ?Patient has been admitted to regular nursing floor for medical stabilization using the ramp protocol with phenobarb taper 2. Fall per nursing staff apparently fell off the bed she did complain of left knee as well as left ankle pain. X-rays ordered for subsequent evaluation. She denied hitting her head 3. Chronic hypoxic respiratory failure ?Secondary to COPD patient is on baseline home oxygen 4. Obstructive sleep apnea ?Patient is on BiPAP at night 5. Dyslipidemia -Patient is on statin therapy, continued at home dose 6. GERD ?Patient is on PPI 7. Obesity BMI of 40.2 ?Weight loss advised 8. DVT prophylaxis - On enoxaparin Charges/Coding Visit Charges Inpatient E&M: 97716 Subs Hosp L2
[2021-01-15 08:42] VITALS: BP 96/69; PULSE 91; RESP 18; TEMP 36.7; O2SAT 100
[2021-01-15] MEDS: Potassium Chloride Oral Tablet 20 MEQ PO ×2 (08:49→21:30)
[2021-01-15] MEDS: Pantoprazole Sodium 40 MG Tablet PO (08:49)
[2021-01-15] MEDS: Folic Acid 1 MG Tablet PO (08:49)
[2021-01-15] MEDS: Thiamine Hydrochloride 100 MG Tablet PO (08:49)
[2021-01-15] MEDS: Furosemide 40 MG Tablet PO (08:49)
[2021-01-15] MEDS: Enoxaparin 40 MG/0.4 ML Syringe SC (08:50)
[2021-01-15] MEDS: Ondansetron 8 MG Tablet PO ×2 (08:54→21:30)
[2021-01-15 10:10] VITALS: BP 97/70; PULSE 115; RESP 22; O2SAT 90
--- NOTE | 2021-01-15 10:20 | NURSING ---
10:08 this nurse walking down hallway noted pt's door opening and pt on floor behind door looking out. pt states her legs gave out and she fell to the floor. noted pt did not have her O2 on. fall unwitnessed. pt denies LOC or hitting head. no gross neurological deficit noted. no nuñez, redness, bruising or edema noted to rt knee, rt ankle or lower back. vs obtained while patient still on floor then x3 assist and gaitbelt assisted back to bed. vs reobtained. no distress noted. pt tearful. bedexit placed. fall bracelet maintained. text sent to Dr. Lee regarding above.
[2021-01-15 10:21] VITALS: BP 108/91; PULSE 97; RESP 18; TEMP 37.1; O2SAT 99
--- NOTE | 2021-01-15 10:57 | RAD_ITS ---
STUDY: X-RAY - RIGHT KNEE REASON FOR EXAM: Female, 60 years old. fall TECHNIQUE: 2 view(s) of the knee. COMPARISON: 11/16/2020 FINDINGS: Normal visualized distal femur. Healing fracture the proximal shaft of the fibula with callus. Normal proximal tibiofibular articulation. Normal medial femorotibial compartment. Normal lateral femorotibial compartment. Normal patellofemoral articulation. The soft tissue structures are unremarkable. RAD/Knee 1 or 2 Views IMPRESSION: Healing nondisplaced fracture the proximal shaft of the fibula. Electronically Signed: Rui Baugh MD at 13:36 EDT Tel , Service support ,
--- NOTE | 2021-01-15 11:45 | RAD_ITS ---
STUDY: X-RAY - RIGHT ANKLE REASON FOR EXAM: Female, 60 years old. fall TECHNIQUE: 3 view(s) of the ankle. COMPARISON: 11/16/2020 FINDINGS: Normal visualized distal tibia and fibula. Normal medial and lateral malleoli. Normal tibiotalar articulation and ankle mortise. Normal visualized talus and calcaneus. The visualized subtalar, talonavicular, calcaneocuboid and tarsal articulations are normal. The soft tissue structures are unremarkable. RAD/Ankle min 3 Views IMPRESSION: Normal x-ray examination of the ankle. Electronically Signed: Rui Baugh MD at 13:37 EDT Tel , Service support ,
[2021-01-15] MEDS: FLUoxetine 20 MG Capsule PO (12:02)
[2021-01-15] MEDS: LORazepam 0.5 MG Tablet PO (12:06)
[2021-01-15 13:41] VITALS: BP 108/73; PULSE 89; RESP 18; TEMP 37.2; O2SAT 100
[2021-01-15] MEDS: Ibuprofen 400 MG Tablet PO ×2 (13:53→20:18)
[2021-01-15] MEDS: hydrOXYzine PAM 25 MG Capsule 50 MG PO (18:25)
[2021-01-15 20:15] VITALS: BP 118/66; PULSE 102; RESP 18; TEMP 36.8; O2SAT 96
--- NOTE | 2021-01-15 21:29 | CASEMGMT ---
SW Note Referral Source: [employer] INTEGRATOR Referral Reason: Patient wanted to make a call to her sister [employer] INTEGRATOR advised that patient wanted to speak to her sister. SW explained that this rfp writer could not call her sister. Patient said could you just go to the next room and call her and let her know I am here. SW again stated that this rfp writer was unable to do that. Patient said that she has lost everything related to her alcohol abuse . Patient voiced she has lost her family and now that she is has lost her home. Patient said at discharge her sister is going to stay with her in her apartment. Patient said that she plans to follow up with [facility] for AOD treatment. Patient talked about the shame regarding going to rehab and then not being successful and needing it again. Patient said she had told the AOD counselors I am one and done in regards to her rehab treatment. SW attempted to get patient to focus on her current situation and not look at the past. Patient was provided support. SW remains available if needs arise. Of note patient reports that her sister brought her to the hospital so her sister is aware of where she is at. RN said that patient can call her sister on date of discharge Plan: Apartment with sister Malaika Cobb JALEN PARKS
[2021-01-15] MEDS: traZODone 100 MG Tablet PO (21:30)
[2021-01-15] MEDS: Pramipexole Di-HCl 0.5 MG Tablet PO (21:30)
[2021-01-15] MEDS: Atorvastatin Calcium 80 MG Tablet PO (21:30)
[2021-01-16] MEDS: Ibuprofen 400 MG Tablet PO ×2 (03:28→21:06)
[2021-01-16] MEDS: hydrOXYzine PAM 25 MG Capsule 50 MG PO ×2 (03:28→19:57)
[2021-01-16] MEDS: Phenobarbital 32.4 MG Tablet PO ×4 (03:29→19:57)
[2021-01-16 03:38] VITALS: BP 115/67; PULSE 90; RESP 18; TEMP 36.5; O2SAT 100
--- NOTE | 2021-01-16 07:25 | PCM.PN.HOSP ---
Subjective Subjective Patient was reported to have fallen the day prior imaging studies obtained demonstrated Healing nondisplaced fracture the proximal shaft of the fibula. Managed with Motrin Objective Data Objective Data Vital Signs: Vital Signs Temp Pulse Resp BP Pulse Ox 97.7 F L 90 18 115/67 100 01/16/21 03:38 01/16/21 03:38 01/16/21 03:38 01/16/21 03:38 01/16/21 03:38 Oxygen Flow Rate (L/min) 5 Oxygen Delivery Method Nasal Cannula Weight: 119.839 kg Body Mass Index (BMI) 40.1 Intake & Output: Intake and Output for Last 24 Hours 01/14/21 01/15/21 01/16/21 23:59 23:59 23:59 Intake Total 2650 / 3550 2000 / 2000 Output Total 350 / 1150 800 / 800 Balance 2300 / 2400 1200 / 1200 Lab / Micro Data Result Diagrams: 01/13/21 20:45 01/13/21 20:45 Radiography Diagnostic Testing: Radiology Impression Knee X-Ray 01/15/21 10:57 IMPRESSION: Healing nondisplaced fracture the proximal shaft of the fibula. Electronically Signed: Rui Baugh MD at 13:36 EDT Tel , Service support , Ankle X-Ray 01/15/21 11:45 IMPRESSION: Normal x-ray examination of the ankle. Electronically Signed: Rui Baugh MD at 13:37 EDT Tel , Service support , Physical Exam Narrative GENERAL: cooperative HEENT: Atraumatic; EYES; Anicteric, Normal Conjunctiva NECK; supple, normal thyroid, RESPIRATORY: Diminished to auscultation CARDIOVASCULAR: Regular S1 S2, GI: soft, normoactive bowel sounds, : No Renal angle tenderness; EXTREMITIES: No edema, no clubbing, MUSCULOSKELETAL: no muscle waisting NEURO: Awake; no lateralizing signs. SKIN: No Rash PSYCH; Flat affect Assessment & Plan Assessment/Plan (1) Acute hyperactive alcohol withdrawal delirium: PLAN: Patient is a 60-year-old lady with history of alcohol dependence admitted for medical stabilization 1. Acute alcohol withdrawal ?Patient has been admitted to regular nursing floor for medical stabilization using the ramp protocol with phenobarb taper 01/16/2021; symptoms well controlled plan is for DC in a.m. for subsequent outpatient therapy 2. Fall per nursing staff apparently fell off the bed she did complain of left knee as well as left ankle pain. X-rays ordered for subsequent evaluation. She denied hitting her head -01/16/2021; Imaging studies obtained demonstrated Healing nondisplaced fracture the proximal shaft of the fibula. Managed with ibuprofen 3. Chronic hypoxic respiratory failure ?Secondary to COPD patient is on baseline home oxygen 4. Obstructive sleep apnea ?Patient is on BiPAP at night 5. Dyslipidemia -Patient is on statin therapy, continued at home dose 6. GERD ?Patient is on PPI 7. Obesity BMI of 40.2 ?Weight loss advised 8. DVT prophylaxis - On enoxaparin Charges/Coding Visit Charges Inpatient E&M: 77046 Subs Hosp L2
[2021-01-16 07:47] VITALS: BP 119/63; PULSE 90; RESP 18; TEMP 36.8; O2SAT 100
[2021-01-16] MEDS: Enoxaparin 40 MG/0.4 ML Syringe SC (07:49)
[2021-01-16] MEDS: Potassium Chloride Oral Tablet 20 MEQ PO ×2 (07:50→21:06)
[2021-01-16] MEDS: Thiamine Hydrochloride 100 MG Tablet PO (07:50)
[2021-01-16] MEDS: Folic Acid 1 MG Tablet PO (07:50)
[2021-01-16] MEDS: Furosemide 40 MG Tablet PO (07:50)
[2021-01-16] MEDS: FLUoxetine 20 MG Capsule PO (07:50)
[2021-01-16] MEDS: Pantoprazole Sodium 40 MG Tablet PO (07:51)
[2021-01-16] MEDS: Gabapentin 300 MG Capsule PO ×2 (07:55→21:06)
[2021-01-16] MEDS: Ondansetron 8 MG Tablet PO (07:55)
[2021-01-16] MEDS: oxyCODONE 5 MG Tablet PO (11:15)
[2021-01-16 14:00] VITALS: BP 126/74; PULSE 100; RESP 18; TEMP 36.7; O2SAT 98
[2021-01-16] MEDS: LORazepam 0.5 MG Tablet PO (15:55)
[2021-01-16 18:16] VITALS: BP 114/79; PULSE 94; RESP 18; TEMP 37; O2SAT 98
[2021-01-16 19:50] VITALS: BP 128/90; PULSE 97; RESP 18; TEMP 36.8; O2SAT 99
[2021-01-16] MEDS: Atorvastatin Calcium 80 MG Tablet PO (21:06)
[2021-01-16] MEDS: Pramipexole Di-HCl 0.5 MG Tablet PO (21:06)
[2021-01-16] MEDS: traZODone 100 MG Tablet PO (21:07)
[2021-01-17] MEDS: hydrOXYzine PAM 25 MG Capsule 50 MG PO (01:18)
[2021-01-17] MEDS: Phenobarbital 32.4 MG Tablet PO ×2 (01:18→07:58)
[2021-01-17 01:19] VITALS: BP 117/54; PULSE 91; RESP 18; TEMP 36.6; O2SAT 96
[2021-01-17] MEDS: Ibuprofen 400 MG Tablet PO (02:32)
[2021-01-17] MEDS: Thiamine Hydrochloride 100 MG Tablet PO (07:58)
[2021-01-17] MEDS: Potassium Chloride Oral Tablet 20 MEQ PO (07:58)
[2021-01-17] MEDS: Folic Acid 1 MG Tablet PO (07:58)
[2021-01-17] MEDS: Enoxaparin 40 MG/0.4 ML Syringe SC (07:59)
[2021-01-17] MEDS: Ondansetron 8 MG Tablet PO (07:59)
[2021-01-17] MEDS: Furosemide 40 MG Tablet PO (07:59)
[2021-01-17] MEDS: Pantoprazole Sodium 40 MG Tablet PO (08:01)
[2021-01-17] MEDS: FLUoxetine 20 MG Capsule PO (08:02)
[2021-01-17] MEDS: Gabapentin 300 MG Capsule PO (08:07)
[2021-01-17 09:30] VITALS: BP 114/73; PULSE 97; RESP 18; TEMP 37.3; O2SAT 100
--- NOTE | 2021-01-17 12:18 | PCM.DC ---
Discharge Instructions Diet Discharge Diet: 2000 mg Sodium Diet Activity Discharge Activity: Return to Normal Activity Follow Up Care Test Results: Test results from this visit will be discussed in further detail at your follow-up appointment, if applicable. Discharge Plan Admission Admit Date/Time: 01/13/21 22:15 Primary Reason for Your Visit: Acute alcohol withdrawal Attending Provider: Leila Lozada Primary Care Provider: Karl Moran Instructions Additional Instructions / Restrictions: You are strongly advised to avoid alcohol or use of any illicit drug. Avoid smoking. Follow-up with your outpatient rehab program as scheduled. Discharge Orders/Prescriptions Prescriptions: Continued lorazepam [Ativan] 0.5 mg tablet 0.5 mg PO DAILY PRN (Reason: Anxiety) RF: 0 potassium chloride 20 mEq tablet,ER particles/crystals 20 meq PO BID RF: 0 buspirone 10 mg tablet 10 mg PO BID RF: 0 dicyclomine 10 mg capsule 10 mg PO TIDAC RF: 0 rosuvastatin 40 MG tablet 40 mg PO QHS RF: 0 pantoprazole 40 MG tablet 40 mg PO DAILY RF: 0 albuterol sulfate 1 INHALER inhaler 1 - 2 puff inhalation Q4H PRN PRN (Reason: Shortness Of Breath) RF: 0 acetaminophen 325 MG tablet 650 mg PO Q6H PRN PRN (Reason: Mild Pain (1-3)/Temp > 100.7 F) RF: 0 furosemide [Lasix] 20 mg Tablet 20 mg PO DAILY RF: 0 fluoxetine 20 mg Capsule 20 mg PO DAILY RF: 0 Referrals / Follow Up: Karl Moran MD [Primary Care Provider] - Within 2 Weeks Disposition Disposition (needs filled in before D/C Order can be placed): Home, Self Care
[2021-01-17 12:23] VITALS: BP 114/73; PULSE 97; RESP 18; TEMP 37; O2SAT 100
--- NOTE | 2021-01-17 12:32 | DS.PCM_ITS ---
Providers Date of Admission: 01/13/21 Date of Discharge: 01/17/21 Primary Care Physician: Dr. Karl Moran MD Reason For Visit: ACUTE ALCOHOL WITHDRAWL Diagnosis Discharge Diagnosis (1) Acute hyperactive alcohol withdrawal delirium: Status: Acute Code(s): F10.231 - Alcohol dependence with withdrawal delirium (2) Alcohol abuse: Status: Acute Code(s): F10.10 - Alcohol abuse, uncomplicated (3) Essential (primary) hypertension: Status: Chronic Code(s): I10 - Essential (primary) hypertension (4) HLD (hyperlipidemia): Status: Chronic Code(s): E78.5 - Hyperlipidemia, unspecified (5) COPD (chronic obstructive pulmonary disease): Status: Suspected Code(s): J44.9 - Chronic obstructive pulmonary disease, unspecified Qualifiers: COPD type: unspecified COPD Qualified Code(s): J44.9 - Chronic obstructive pulmonary disease, unspecified Medications at Discharge Home Medications albuterol sulfate 1 - 2 puff INHALATION Q4H PRN PRN 12/09/18 pantoprazole 40 mg PO DAILY 12/09/18 rosuvastatin 40 mg PO QHS 12/09/18 acetaminophen 650 mg PO Q6H PRN PRN tab 12/13/18 buspirone 10 mg tablet 10 mg PO BID tab 10/23/19 dicyclomine 10 mg capsule 10 mg PO TIDAC cap 10/23/19 potassium chloride 20 mEq tablet,extended release(part/cryst) 20 meq PO BID tab 10/23/19 lorazepam 0.5 mg tablet 0.5 mg PO DAILY PRN 11/05/19 furosemide [Lasix] 20 mg PO DAILY 01/13/21 fluoxetine 20 mg PO DAILY 01/14/21 Hospital Course Operations None Procedures None Summary of Care Provided Minutes Spent on Discharge: 35 Hospital Course: 60-year-old with past medical history of alcohol use disorder who presents seeking medical stabilization from acute alcohol withdrawal. Patient admits to drinking a gallon of wine a day. Her last drink was known before admission. She had complained of anxiety, restlessness, nausea and vomiting. She was admitted to the [facility] floor and managed on the alcohol withdrawal protocol. She continued to improve. She was seen by the research worker encyclopedia. Patient will follow up with 180 in the outpatient. Physical Exam Narrative Physical exam: General: Alert, Oriented x3, Cooperative, No apparent distress, Well developed HEENT: Atraumatic Oral: Moist Mucosa Neck: Supple Lungs: Clear to auscultation Cardiovascular: HS I+II, regular, no murmurs Abdomen: Bowel Sounds Present, Soft, Non Tender Extremities: No edema Weight / BMI Weight Weight: 119.839 kg Body Mass Index (BMI) 40.1 ABG / Lab / Microbiology Data Result Diagrams: 01/13/21 20:45 01/13/21 20:45 D/C Instructions Discharge Diet: Low fat / Low cholesterol and 2000 mg Sodium Diet Meaningful Use Info Meaningful Use Diagnoses (Choose all that apply): None applicable Discharge Plan Admission Admit Date/Time: 01/13/21 22:15 Primary Reason for Your Visit: Acute alcohol withdrawal Attending Provider: Leila Lozada Primary Care Provider: Karl Moran Instructions Additional Instructions / Restrictions: You are strongly advised to avoid alcohol or use of any illicit drug. Avoid smoking. Follow-up with your outpatient rehab program as scheduled. Discharge Orders/Prescriptions Prescriptions: Continued lorazepam [Ativan] 0.5 mg tablet 0.5 mg PO DAILY PRN (Reason: Anxiety) RF: 0 potassium chloride 20 mEq tablet,ER particles/crystals 20 meq PO BID RF: 0 buspirone 10 mg tablet 10 mg PO BID RF: 0 dicyclomine 10 mg capsule 10 mg PO TIDAC RF: 0 rosuvastatin 40 MG tablet 40 mg PO QHS RF: 0 pantoprazole 40 MG tablet 40 mg PO DAILY RF: 0 albuterol sulfate 1 INHALER inhaler 1 - 2 puff inhalation Q4H PRN PRN (Reason: Shortness Of Breath) RF: 0 acetaminophen 325 MG tablet 650 mg PO Q6H PRN PRN (Reason: Mild Pain (1-3)/Temp > 100.7 F) RF: 0 furosemide [Lasix] 20 mg Tablet 20 mg PO DAILY RF: 0 fluoxetine 20 mg Capsule 20 mg PO DAILY RF: 0 Referrals / Follow Up: Karl Moran MD [Primary Care Provider] - Within 2 Weeks Disposition Disposition (needs filled in before D/C Order can be placed): Home, Self Care Charges/Coding Visit Charges Inpatient E&M: 68671 Disch Hosp
== END 2021-01-17 15:05 | disposition home or self-care (01) | DRG 897 ==
LOC: ED 19:41 → MS3 22:18
PROVIDERS: Admitting Provider Internal Medicine; Emergency Provider Student in an Organized Health Care Education/Training Program; PCP Family Medicine; Visit Provider Internal Medicine
DX: F10.231 Alcohol dependence with withdrawal delirium (principal); Z68.41 Body mass index [BMI] 40.0-44.9, adult; J96.11 Chronic respiratory failure with hypoxia; M25.562 Pain in left knee; M25.572 Pain in left ankle and joints of left foot; W06.XXXA Fall from bed, initial encounter; Y93.9 Activity, unspecified; Y92.9 Unspecified place or not applicable; F12.90 Cannabis use, unspecified, uncomplicated; E78.5 Hyperlipidemia, unspecified; F32.9 Major depressive disorder, single episode, unspecified; F41.1 Generalized anxiety disorder; G25.81 Restless legs syndrome; E66.9 Obesity, unspecified; G43.909 Migraine, unspecified, not intractable, without status migrainosus; G47.33 Obstructive sleep apnea (adult) (pediatric); I12.9 Hypertensive chronic kidney disease with stage 1 through stage 4 chronic kidney disease, or unspecified chronic kidney disease; I27.29 Other secondary pulmonary hypertension; K21.9 Gastro-esophageal reflux disease without esophagitis; M19.90 Unspecified osteoarthritis, unspecified site; N18.1 Chronic kidney disease, stage 1; J44.9 Chronic obstructive pulmonary disease, unspecified; Z87.19 Personal history of other diseases of the digestive system; Z87.891 Personal history of nicotine dependence; Z86.19 Personal history of other infectious and parasitic diseases; Z87.01 Personal history of pneumonia (recurrent); Z86.16 Personal history of COVID-19; Z86.718 Personal history of other venous thrombosis and embolism; Z79.899 Other long term (current) drug therapy; Z99.81 Dependence on supplemental oxygen
CPT/HCPCS: 73560; 73600; 73610; 80053; 80307; 82077; 83690; 85025; 85610; 99285; J7030; J7120; A4216

== ENCOUNTER 2021-03-02 20:54 | Emergency (ER) | payer OTHER, SELFPAY ==
[2021-03-02 20:55] VITALS: BP 123/76; PULSE 74; RESP 16; TEMP 36.3; O2SAT 100; BMI 41.0
--- NOTE | 2021-03-02 22:09 | RAD_ITS ---
HISTORY: Trauma, foot injury EXAMINATION/TECHNIQUE: XR Foot Min 3 Views: COMPARISON: None FINDINGS: BONES/JOINTS: Comminuted and mildly displaced fracture of the fifth proximal phalanx distally. Overall alignment near anatomic. Preservation of the joint spaces. No sclerotic or destructive changes observed. SOFT TISSUES: No soft tissue swelling or gas. No radiopaque foreign body. RAD/Foot min 3 Views IMPRESSION: Comminuted fracture of the fifth proximal phalanx. at 2356 Reported and signed by: Kiel Vaca MD Electronically Signed: Kiel Vaca MD at 23:55 EDT Tel , Service support ,
--- NOTE | 2021-03-02 22:09 | RAD_ITS ---
HISTORY: Trauma, right hip injury EXAMINATION/TECHNIQUE: XR Hip Unilateral with Pelvis when performed; 2-3 Views: COMPARISON: Right hip series 11/16/20 FINDINGS: BONES/JOINTS: No acute fracture or dislocation. Bilateral hip prostheses anatomically positioned, no pathologic lucency. No sclerotic or destructive changes observed. Stable lumbar fusion hardware. SOFT TISSUES: No soft tissue swelling or gas. RAD/HIP, UNI W/ Pelvis 2-3 Views IMPRESSION: No acute bony abnormality. at 2352 Reported and signed by: Kiel Vaca MD Electronically Signed: Kiel Vaca MD at 23:51 EDT Tel , Service support ,
--- NOTE | 2021-03-02 22:09 | CT_ITS ---
HISTORY: altered mental status TECHNIQUE: Multiple axial images were obtained of the brain without intravenous contrast. A radiation dose optimization technique was used for this scan. IV Contrast dosage and agent: None. COMPARISON: 11/22/20 FINDINGS: # of images incl. paperwork: [id number] PARANASAL SINUSES AND MASTOID AIR CELLS: Clear. INTRACRANIAL HEMORRHAGE: None. BRAIN PARENCHYMA: No CT evidence of stroke. No intracranial masses. There is preservation of the torres/white matter interface. Posterior fossa structures are unremarkable. CSF SPACES: Appropriate for age. There is no hydrocephalus. MASS EFFECT: None. CALVARIUM: Intact. CT/Brain/Head without Contrast IMPRESSION: No acute intracranial findings. Individualized dose optimization techniques were used for this CT. at 0008 Reported and signed by: Kiel Vaca MD Electronically Signed: Kiel Vaca MD at 0:06 EDT Tel , Service support ,
--- NOTE | 2021-03-02 22:10 | EX.ED.DYSGE1 ---
HPI History of Present Illness Chief Complaint: Fall Informant: patient Narrative Narrative: 60-year-old female presents to the emergency department stating that she for the past 2 months she has had increasing falls and getting lost in her thought. She states she has appointment tomorrow morning to discuss this with her doctor and she scheduled an appointment a couple days ago. She has pain in the left foot pain in the right hip. She states that her right hip has not been the same since she had a replacement. When asked what specifically has changed that made her come to emergency after 2 months she states she just needs to be diagnosed. [facility] Medical History (Updated 03/03/21 @ 00:[address] Elías Ascencio, DO) Abdominal pain Abnormal liver CT Anemia Anxiety Arthritis Asthma Bronchiectasis Bronchitis Chronic renal failure Chronic renal insufficiency, stage I Colitis Colitis with rectal bleeding COPD (chronic obstructive pulmonary disease) Depression DVT (deep venous thrombosis) Endocarditis Essential (primary) hypertension Gastritis Gastroesophageal reflux disease History of diarrhea History of umbilical hernia HLD (hyperlipidemia) Idiopathic right ventricular dilation Leukopenia Migraine Morbid obesity GENNARO (obstructive sleep apnea) Osteoarthritis Pancytopenia Pneumonia Respiratory failure with hypoxia Respiratory insufficiency Respiratory tract infection due to COVID-19 virus Restrictive lung disease Right bundle branch block (RBBB) Right ventricular systolic dysfunction Sepsis Thrombocytopenia Home Medications albuterol sulfate 1 - 2 puff INHALATION Q4H PRN PRN 12/09/18 [History Last Taken Unknown] pantoprazole 40 mg PO DAILY 12/09/18 [History Last Taken 01/13/21] rosuvastatin 40 mg PO QHS 12/09/18 [History Last Taken 01/12/21] acetaminophen 650 mg PO Q6H PRN PRN tab 12/13/18 [Rx Last Taken Unknown] buspirone 10 mg tablet 10 mg PO BID tab 10/23/19 [History Last Taken 01/13/21] dicyclomine 10 mg capsule 10 mg PO TIDAC cap 10/23/19 [History Last Taken 01/13/21] potassium chloride 20 mEq tablet,extended release(part/cryst) 20 meq PO BID tab 10/23/19 [History Last Taken 01/13/21] lorazepam 0.5 mg tablet 0.5 mg PO DAILY PRN 11/05/19 [History Last Taken Unknown] furosemide [Lasix] 20 mg PO DAILY 01/13/21 [History Last Taken 01/13/21] fluoxetine 20 mg PO DAILY 01/14/21 [History Last Taken Unknown] Allergy/AdvReac Type Severity Reaction Status Date / Time Penicillins Allergy Hives Verified 03/02/21 20:59 DUST Allergy itchy eyes Uncoded 03/02/21 20:59 SEASONAL Allergy itchy eyes Uncoded 03/02/21 20:59 Family History Father Colon cancer Mother Cancer pancreatic Surgical History History of appendectomy History of cholecystectomy History of hysterectomy History of tubal ligation Social History Smoking Status: Former smoker Tobacco: How many years used: 25 how long ago did patient quit smokin, 0.5ppd second hand exposure: Yes alcohol intake: never ROS ROS ED Constitutional Constitutional ED: Denies chills or weight loss Eyes Eyes: Denies change in vision or diplopia ENT ENT ED: Denies ear pain, rhinorrhea or sore throat Cardiovascular Cardiovascular: Denies chest pain, orthopnea, palpitations or racing heartbeat Respiratory/Chest Respiratory/Chest: Denies cough, dyspnea or orthopnea Gastrointestinal Gastrointestinal: Denies abdominal pain, diarrhea, nausea or vomiting Genitourinary Genitourinary ED: Denies dysuria, hematuria or urinary frequency Musculoskeletal Musculoskeletal: Reports other Details: See history of present illness ; Denies arthralgias or myalgias Integumentary Denies abscess or rash Neurologic Neurologic: Reports other Details: Forgetfulness ; Denies headache(s) or weakness Psychiatric Psychiatric: Denies anxiety, depression, suicidal ideation or suicidal thoughts Endocrine Endocrinology: Denies polydipsia, polyphagia or polyuria Allergic/Immunologic Allergic/Immunologic ED: Denies mouth swelling, tongue swelling or urticaria EXAM Physical Exam Const Vital Signs: 03/02/21 20:55 Temperature 97.3 F L Temperature Source Temporal Pulse Rate 74 Respiratory Rate 16 Blood Pressure 123/76 H Blood Pressure Mean 91 Pulse Ox 100 Oxygen Delivery Method Nasal Cannula Oxygen Flow Rate (L/min) 3 Positive well nourished and well developed General Appearance ED: well developed HEENT Reports normocephalic, head/scalp atraumatic and moist mucous membranes HEENT Narrative: Oral pharyngeal exam normal Negative for trauma Eyes PERRL and EOMs intact bilaterally Neck no lymphadenopathy, supple and no JVD Resp normal respiratory effort and clear to auscultation bilaterally Cardio regular rate, regular rhythm and no murmurs GI normal to inspection, nondistended, normoactive bowel sounds and non-tender Palpation: soft Back/Spine no CVA tenderness and normal ROM Extremity Extremity Narrative: There is some ecchymosis over the dorsum of the left foot near the MTP joint. There is tenderness of the right hip. General Extremety ED: Negative for edema General Extremity: Negative for edema Neuro oriented x3 and CN's II-XII intact bilaterally Sensorium / Orientation: alert Motor Exam: strength 5/5 throughout Psych Mood & Affect: depressed and tearful Skin no rashes or lesions noted and no wounds MDM MDM MDM Narrative Medical decision making narrative: Patient's blood work appears to be at her baseline. Creatinine 1.63. White count 2.8 hemoglobin 12.7 platelet counts are 135. The patient underwent a head CT which was negative. My interpretation of the plain films of the pelvis and right hip there is no acute fracture. My interpretation of the plain films of the left foot is a proximal phalanx fracture of the fifth and fourth toe. Patient maintains that she is still sober. This point I do not see anything emergent will need admit the patient for. She has follow-up arranged tomorrow morning. I will put her in a postop shoe and give her some oxycodone here. Lab Data Attestation: I reviewed the patient's lab results. Labs: Laboratory Results - last 24 hr 03/02/21 03/02/21 22:50 22:50 WBC 2.8 L RBC 3.55 L Hgb 10.7 L Hct 35.6 L MCV 100.3 H MCH 30.1 MCHC 30.1 L RDW Std Deviation 67.0 H RDW Coeff of Jaun 17.9 H Plt Count 135 L MPV 9.5 Differential Comment SCANNED Sodium 142 Potassium 3.4 L Chloride 107 Carbon Dioxide 31.0 Anion Gap 4 L BUN 10 Creatinine 1.63 H Estim Creat Clear Calc 37.49 Est GFR (MDRD) Af Amer 42 L Est GFR (MDRD) Non-Af 34 L BUN/Creatinine Ratio 6.1 L Glucose 101 Calcium 8.6 Total Bilirubin 1.10 H AST 19 ALT 33 Alkaline Phosphatase 113 Total Protein 6.5 Albumin 3.5 Globulin 3.0 Albumin/Globulin Ratio 1.2 Radiography Diagnostic Testing: Radiology Impression Brain CT 03/02/21 22:09 IMPRESSION: No acute intracranial findings. Individualized dose optimization techniques were used for this CT. at 0008 Reported and signed by: Kiel Vaca MD Electronically Signed: Kiel Vaca MD at 0:06 EDT Tel , Service support , Foot X-Ray 03/02/21 22:09 IMPRESSION: Comminuted fracture of the fifth proximal phalanx. at 2356 Reported and signed by: Kiel Vaca MD Electronically Signed: Kiel Vaca MD at 23:55 EDT Tel , Service support , Hip/Pelvis X-Ray 03/02/21 22:09 IMPRESSION: No acute bony abnormality. at 2352 Reported and signed by: Kiel Vaca MD Electronically Signed: Kiel Vaca MD at 23:51 EDT Tel , Service support , Discharge Plan Triage Chief Complaint: Fall ED Provider: Elías Ascencio Dx/Rx/DC Orders Clinical Impression: Closed fracture of proximal phalanx of toe of left foot, Frequent falls, Forgetfulness Instructions: ED Fracture, Toe, Closed Prescriptions: No Action lorazepam [Ativan] 0.5 mg tablet 0.5 mg PO DAILY PRN (Reason: Anxiety) RF: 0 potassium chloride 20 mEq tablet,ER particles/crystals 20 meq PO BID RF: 0 buspirone 10 mg tablet 10 mg PO BID RF: 0 dicyclomine 10 mg capsule 10 mg PO TIDAC RF: 0 rosuvastatin 40 MG tablet 40 mg PO QHS RF: 0 pantoprazole 40 MG tablet 40 mg PO DAILY RF: 0 albuterol sulfate 1 INHALER inhaler 1 - 2 puff inhalation Q4H PRN PRN (Reason: Shortness Of Breath) RF: 0 acetaminophen 325 MG tablet 650 mg PO Q6H PRN PRN (Reason: Mild Pain (1-3)/Temp > 100.7 F) RF: 0 furosemide [Lasix] 20 mg Tablet 20 mg PO DAILY RF: 0 fluoxetine 20 mg Capsule 20 mg PO DAILY RF: 0 Primary Care Provider: Karl Moran Referrals: Karl Moran MD [Primary Care Provider] - [facility] appointment Disposition Disposition: Home, Self Care
[2021-03-02 23:02] LABS: Hematocrit 35.6 % (37-47); Hemoglobin 10.7 g/dL (12.0-15.0); Mean Corp Hgb Conc 30.1 g/dL (32-36); Mean Corpuscular Hgb 30.1 pg (27.0-32.0); Mean Corpuscular Volume 100.3 fL (81-99); Mean Platelet Vol. 9.5 fl (6.2-12.0); POSITIVE MORPHOLOGY YES; Platelet Count 135 K/mm3 (150-450); RBC Distribution Width CV 17.9 % (11.6-14.6); Red Blood Count 3.55 M/mm3 (4.2-5.4); White Blood Count 2.8 K/mm3 (4.4-11.0)
[2021-03-02] MEDS: Ketorolac 30 MG/ML Syringe IV (23:02)
[2021-03-02 23:04] LABS: Scan Indicated on CBC? Y/N YES- FLAGS NOTED
[2021-03-02 23:18] LABS: ALB/GLOB Ratio 1.2 RATIO (0.9-2.4); AST(SGOT) 19 U/L (15-37); Alanine Aminotransfer ALT/SGPT 33 U/L (13-56); Albumin, Serum 3.5 g/dL (3.2-5.0); Alkaline Phosphatase 113 U/L (45-117); Anion Gap 4 (5-15); BUN 10 mg/dL (7-18); BUN/Creat Ratio 6.1 RATIO (10-20); Calcium,Total 8.6 mg/dL (8.5-10.1); Chloride 107 mmol/L (98-107); Creatinine, Serum 1.63 mg/dL (0.55-1.02); EST Glomerular Filtration Rate 34 mL/min (>60); Est Glom Filt Rate - Afr Amer 42 mL/min (>60); Estimated Creatinine Clearance 37.49 ml/min; Glucose 101 mg/dL (74-106); Potassium 3.4 mmol/L (3.5-5.1); Protein, Total 6.5 g/dL (6.4-8.2); Sodium Level 142 mmol/L (136-145)
[2021-03-02 23:30] VITALS: O2SAT 99
[2021-03-03 00:09] LABS: Differential Comment SCANNED
[2021-03-03] MEDS: oxyCODONE 5 MG Tablet 10 MG PO (00:46)
[2021-03-03 00:52] VITALS: BP 126/74; PULSE 86; RESP 18; O2SAT 97
== END 2021-03-03 00:53 | disposition home or self-care (01) ==
PROVIDERS: Emergency Provider Emergency Medicine; PCP Family Medicine
DX: S92.512A Displaced fracture of proximal phalanx of left lesser toe(s), initial encounter for closed fracture (principal); W19.XXXA Unspecified fall, initial encounter; Z91.81 History of falling; Y93.9 Activity, unspecified; Y92.9 Unspecified place or not applicable; R41.3 Other amnesia; E78.5 Hyperlipidemia, unspecified; F32.9 Major depressive disorder, single episode, unspecified; F41.9 Anxiety disorder, unspecified; G47.33 Obstructive sleep apnea (adult) (pediatric); I12.9 Hypertensive chronic kidney disease with stage 1 through stage 4 chronic kidney disease, or unspecified chronic kidney disease; N18.1 Chronic kidney disease, stage 1; J44.9 Chronic obstructive pulmonary disease, unspecified; K21.9 Gastro-esophageal reflux disease without esophagitis; M19.90 Unspecified osteoarthritis, unspecified site; Z68.41 Body mass index [BMI] 40.0-44.9, adult; E66.01 Morbid (severe) obesity due to excess calories; G43.909 Migraine, unspecified, not intractable, without status migrainosus; Z86.2 Personal history of diseases of the blood and blood-forming organs and certain disorders involving the immune mechanism; Z87.19 Personal history of other diseases of the digestive system; Z86.19 Personal history of other infectious and parasitic diseases; Z86.718 Personal history of other venous thrombosis and embolism; Z86.16 Personal history of COVID-19; Z96.641 Presence of right artificial hip joint; Z79.899 Other long term (current) drug therapy; Z87.891 Personal history of nicotine dependence
CPT/HCPCS: 70450; 73502; 73630; 80053; 85027; 96374; 99285; J7030; A4216

== ENCOUNTER 2021-03-06 10:57 | Inpatient (IN) | payer OTHER, MEDICARE, SELFPAY ==
[2021-03-06] VITALS (7 sets, daily range): BP systolic 94–159; BP diastolic 50–102; PULSE 83–98; RESP 16–18; TEMP 36.2–36.9; O2SAT 94–100; BMI 39.9; BMI 39.4
--- NOTE | 2021-03-06 11:25 | EKG12_ITS ---
Test Reason : SOB Blood Pressure : / mmHG Vent. Rate : 089 BPM Atrial Rate : 089 BPM P-R Int : 160 ms QRS Dur : 138 ms QT Int : 428 ms P-R-T Axes : 049 082 016 degrees QTc Int : 520 ms Normal sinus rhythm Right bundle branch block Abnormal ECG Confirmed by RADHA CLINTON, MG ([id number]), industrial editor JOSIAH FLOOD ([id number]) on 03/08/2021 8:01:12 AM Referred By: HECTOR Confirmed By:MG GARCIA MD
--- NOTE | 2021-03-06 11:26 | EDS_ITS ---
HPI History of Present Illness Chief Complaint: Substance Abuse Informant: patient Narrative Narrative: This patient has a long history of alcoholism. She drinks about a gallon of wine a day. If she does not drink she gets very shaky. Sometimes she feels more confused. Her last drink was about 10 or 12 hours ago and she is feeling shaky. She has never had a seizure. Her last detox was about 6 weeks ago. She did complete it. However she went home and started drinking within 1 or 2 days. Nothing specifically got her to this point today. She just feels that she is ruining herself and needs to try to get help again. She is concerned because over the last 3 or 4 months she has noticed that she is gotten more forgetful. She is concerned this might be the alcohol. She has chronic cough and bronchiectasis but no marked change. She has had no nausea vomiting diarrhea or blood in the stool. However, her appetite is down. No fevers. She did have Covid earlier in the year. Nothing is specifically making symptoms better or worse. [facility] Medical History (Updated 03/06/21 @ 13:[address] Mau Gayle MD) Abdominal pain Abnormal liver CT Anemia Anxiety Arthritis Asthma Bronchiectasis Bronchitis Chronic renal failure Chronic renal insufficiency, stage I Colitis Colitis with rectal bleeding COPD (chronic obstructive pulmonary disease) Depression DVT (deep venous thrombosis) Endocarditis Essential (primary) hypertension Gastritis Gastroesophageal reflux disease History of diarrhea History of umbilical hernia HLD (hyperlipidemia) Idiopathic right ventricular dilation Leukopenia Migraine Morbid obesity GENNARO (obstructive sleep apnea) Osteoarthritis Pancytopenia Pneumonia Respiratory failure with hypoxia Respiratory insufficiency Respiratory tract infection due to COVID-19 virus Restrictive lung disease Right bundle branch block (RBBB) Right ventricular systolic dysfunction Sepsis Thrombocytopenia Home Medications albuterol sulfate 1 - 2 puff INHALATION Q4H PRN PRN 12/09/18 [History Last Taken Unknown] pantoprazole 40 mg PO DAILY 12/09/18 [History Last Taken 01/13/21] rosuvastatin 40 mg PO QHS 12/09/18 [History Last Taken 01/12/21] acetaminophen 650 mg PO Q6H PRN PRN tab 12/13/18 [Rx Last Taken Unknown] buspirone 10 mg tablet 10 mg PO BID tab 10/23/19 [History Last Taken 01/13/21] dicyclomine 10 mg capsule 10 mg PO TIDAC cap 10/23/19 [History Last Taken 01/13/21] potassium chloride 20 mEq tablet,extended release(part/cryst) 20 meq PO BID tab 10/23/19 [History Last Taken 01/13/21] lorazepam 0.5 mg tablet 0.5 mg PO DAILY PRN 11/05/19 [History Last Taken Unknown] furosemide [Lasix] 20 mg PO DAILY 01/13/21 [History Last Taken 01/13/21] fluoxetine 20 mg PO DAILY 01/14/21 [History Last Taken Unknown] Allergy/AdvReac Type Severity Reaction Status Date / Time Penicillins Allergy Hives Verified 03/06/21 10:57 DUST Allergy itchy eyes Uncoded 03/06/21 10:57 SEASONAL Allergy itchy eyes Uncoded 03/06/21 10:57 Family History Father Colon cancer Mother Cancer pancreatic Surgical History History of appendectomy History of cholecystectomy History of hysterectomy History of tubal ligation Social History Smoking Status: Former smoker Tobacco: How many years used: 25 how long ago did patient quit smokin, 0.5ppd second hand exposure: Yes alcohol intake: never ROS ROS ED Constitutional Constitutional ED: Denies chills or fever(s) Eyes Eyes: Denies blurry vision or change in vision ENT ENT ED: Denies rhinorrhea or sore throat Cardiovascular Cardiovascular: Denies chest pain or palpitations Respiratory/Chest Respiratory/Chest: Reports cough; Denies dyspnea, dyspnea on exertion or sputum Gastrointestinal Gastrointestinal: Reports other Details: Mild decreased appetite. But able to eat and drink. ; Denies abdominal pain, nausea or vomiting Genitourinary Genitourinary ED: Denies dysuria or hematuria Musculoskeletal Musculoskeletal: Denies myalgias Integumentary Denies abscess or rash Neurologic Neurologic: Reports other Details: Patient states that for many months now she has been more forgetful than usual. This is not acutely changed or different though. ; Denies headache(s), paresthesias or weakness Endocrine Endocrinology: Denies polydipsia or polyuria Allergic/Immunologic Allergic/Immunologic ED: Denies urticaria EXAM Physical Exam Const Vital Signs: 03/06/21 10:58 03/06/21 13:00 Temperature 97.3 F L Temperature Source Temporal Pulse Rate 98 89 Respiratory Rate 17 16 Blood Pressure 159/102 H 149/88 H Blood Pressure Mean 121 108 Pulse Ox 95 96 Oxygen Delivery Method Nasal Cannula Room Air Oxygen Flow Rate (L/min) 3 Positive well nourished, well developed and obese General Appearance ED: well developed Nutritional Appearance: obese HEENT Reports moist mucous membranes Negative for trauma or tenderness Eyes General Eye ED: Negative for pale conjunctiva or scleral icterus Neck supple and no JVD Chest Wall inspection of chest normal Resp normal respiratory effort and clear to auscultation bilaterally Effort and Inspection: Negative for pain with movement Auscultation: Negative for rales, rhonchi or wheezes Cardio regular rate, regular rhythm and no murmurs Rate: other Other Details: Borderline tachycardia. GI normal to inspection, nondistended, normoactive bowel sounds, non-tender and non-distended Palpation: soft Back/Spine no CVA tenderness Extremity General Extremety ED: Negative for tenderness Neuro oriented x3 Neuro Narrative: Patient is awake oriented x3. She is a bit tearful. She wants help. No focal deficit. Sensorium / Orientation: alert Psych Mood & Affect: anxious Skin no rashes or lesions noted MDM MDM MDM Narrative Medical decision making narrative: Patient has some mild leukopenia which is not new. This is likely from alcohol use. Electrolytes show no marked abnormalities. Alcohol level is 0 consistent with not drinking for about 12 hours or more. INR was checked and is normal. Chest x-ray shows no acute process. This was checked due to her history of chronic bronchiectasis. Covid was negative. Patient was treated with Ativan. This did help her. I discussed the case with hospitalist and patient will be admitted. Lab Data Attestation: I reviewed the patient's lab results. Labs: Laboratory Results - last 24 hr 03/06/21 03/06/21 03/06/21 11:44 11:44 11:44 WBC 3.6 L RBC 4.28 Hgb 12.6 Hct 41.8 MCV 97.7 MCH 29.4 MCHC 30.1 L RDW Std Deviation 60.7 H RDW Coeff of Jaun 16.8 H Plt Count 173 MPV 9.9 Immature Gran % (Auto) 0.300 Neut % (Auto) 82.6 H Lymph % (Auto) 11.2 L [place] % (Auto) 5.3 Eos % (Auto) 0.3 Baso % (Auto) 0.3 Absolute Neuts (auto) 2.9 Absolute Lymphs (auto) 0.40 L Nucleated RBC % 0 Differential Comment SCANNED Diff Path Review May foll PT INR Sodium 142 Potassium 3.3 L Chloride 106 Carbon Dioxide 27.0 Anion Gap 9 BUN 9 Creatinine 1.19 H Estim Creat Clear Calc 51.35 Est GFR (MDRD) Af Amer 60 Est GFR (MDRD) Non-Af 49 L BUN/Creatinine Ratio 7.6 L Glucose 106 Calcium 9.1 Ethyl Alcohol < 3.0 03/06/21 11:44 WBC RBC Hgb Hct MCV MCH MCHC RDW Std Deviation RDW Coeff of Jaun Plt Count MPV Immature Gran % (Auto) Neut % (Auto) Lymph % (Auto) [place] % (Auto) Eos % (Auto) Baso % (Auto) Absolute Neuts (auto) Absolute Lymphs (auto) Nucleated RBC % Differential Comment Diff Path Review PT 11.9 INR 0.9 Sodium Potassium Chloride Carbon Dioxide Anion Gap BUN Creatinine Estim Creat Clear Calc Est GFR (MDRD) Af Amer Est GFR (MDRD) Non-Af BUN/Creatinine Ratio Glucose Calcium Ethyl Alcohol Radiography Diagnostic Testing: Radiology Impression Chest X-Ray 03/06/21 11:45 IMPRESSION: Normal x-ray examination of the chest. Electronically Signed: Darius Carbajal MD at 12:55 EDT Tel , Service support , Discharge Plan Dx/Rx/DC Orders Clinical Impression: Admitted to alcohol detoxification center, Alcohol abuse Disposition Disposition: Acute Care Hospital [facility]
[2021-03-06] MEDS: LORazepam 2 MG/ML Syringe IV (11:45)
--- NOTE | 2021-03-06 11:45 | RAD_ITS ---
STUDY: X-RAY CHEST REASON FOR EXAM: Female, 60 years old. cough TECHNIQUE: Frontal portable view of the chest COMPARISON: 22 November 2020 FINDINGS: Inspiratory volumes are low. Lungs are clear.. There is no demonstrated pleural abnormality. Normal size heart. Normal mediastinum and myriam. Normal visualized pulmonary arteries. Normal visualized aortic arch and descending thoracic aorta. Normal visualized thoracic spine. Normal visualized ribs, clavicles, and shoulders. There is no demonstrated abnormality of the visualized soft tissue structures of the upper abdomen. RAD/Chest 1 View (Portable) IMPRESSION: Normal x-ray examination of the chest. Electronically Signed: Darius Carbajal MD at 12:55 EDT Tel , Service support ,
[2021-03-06 11:53] LABS: Absolute Neutrophil Count 2.9 X10^3/uL (2.0-7.7); Basophil# 0.01 X10^3/uL; Basophil% 0.3 % (0-1); Eosinophil# 0.01 X10^3/uL; Eosinophils% 0.3 % (0-5); Hematocrit 41.8 % (37-47); Hemoglobin 12.6 g/dL (12.0-15.0); Lymphocyte % 11.2 % (19-41); Mean Corp Hgb Conc 30.1 g/dL (32-36); Mean Corpuscular Hgb 29.4 pg (27.0-32.0); Mean Corpuscular Volume 97.7 fL (81-99); Mean Platelet Vol. 9.9 fl (6.2-12.0); Monocyte# 0.19 X10^3/uL; Monocyte% 5.3 % (0-10); NRBC Flagged by Analyzer 0 % (0-5); Neutrophil # 2.94 X10^3/uL (2.7-7.7); Neutrophil % 82.6 % (47-70); POSITIVE DIFFERENTIAL YES; Platelet Count 173 K/mm3 (150-450); RBC Distribution Width CV 16.8 % (11.6-14.6); RBC Distribution Width SD 60.7 fl (35.1-43.9); Red Blood Count 4.28 M/mm3 (4.2-5.4); White Blood Count 3.6 K/mm3 (4.4-11.0)
[2021-03-06 11:54] LABS: Differential Indicated SCAN CRITERIA MET
[2021-03-06 12:01] LABS: International Normalized Ratio 0.9; Prothrombin Time (Protime)PT. 11.9 SECONDS (11.7-14.9)
[2021-03-06 12:05] LABS: Anion Gap 9 (5-15); BUN 9 mg/dL (7-18); BUN/Creat Ratio 7.6 RATIO (10-20); Calcium,Total 9.1 mg/dL (8.5-10.1); Chloride 106 mmol/L (98-107); Creatinine, Serum 1.19 mg/dL (0.55-1.02); EST Glomerular Filtration Rate 49 mL/min (>60); Est Glom Filt Rate - Afr Amer 60 mL/min (>60); Estimated Creatinine Clearance 51.35 ml/min; Glucose 106 mg/dL (74-106); Potassium 3.3 mmol/L (3.5-5.1); Sodium Level 142 mmol/L (136-145)
[2021-03-06 12:18] LABS: Alcohol, Blood (Medical)-Serum < 3.0 mg/dL
[2021-03-06 12:21] LABS: Differential Comment SCANNED
--- NOTE | 2021-03-06 14:05 | PCM.HP.STD ---
HPI - General General Date of Admission: 03/06/21 Date of Service: 03/06/21 Chief Complaint: alcohol withdrawal HPI Narrative ALFIE HOGAN, is a 60 F who presents seeking treatment for alcohol withdrawal. Patient's last drink was 2100 on the second. Since then she is just felt very sick with nausea, malaise and diffuse myalgias. Patient was admitted in January and completed the inpatient program and was in contact with her counselors but was still drinking but the drinking has accelerated since then where patient is drinking a liter of wine per day. [facility] Medical History (Updated 03/06/21 @ 14:[address] Blayne Santana, DO) Abdominal pain Abnormal liver CT Anemia Anxiety Arthritis Asthma Bronchiectasis Bronchitis Chronic renal failure Chronic renal insufficiency, stage I Colitis Colitis with rectal bleeding COPD (chronic obstructive pulmonary disease) Depression DVT (deep venous thrombosis) Endocarditis Essential (primary) hypertension Gastritis Gastroesophageal reflux disease History of diarrhea History of umbilical hernia HLD (hyperlipidemia) Idiopathic right ventricular dilation Leukopenia Migraine Morbid obesity GENNARO (obstructive sleep apnea) Osteoarthritis Pancytopenia Pneumonia Respiratory failure with hypoxia Respiratory insufficiency Respiratory tract infection due to COVID-19 virus Restrictive lung disease Right bundle branch block (RBBB) Right ventricular systolic dysfunction Sepsis Thrombocytopenia Home Medications albuterol sulfate 1 - 2 puff INHALATION Q4H PRN PRN 12/09/18 [History Last Taken Unknown] pantoprazole 40 mg PO DAILY 12/09/18 [History Last Taken 01/13/21] rosuvastatin 40 mg PO QHS 12/09/18 [History Last Taken 01/12/21] acetaminophen 650 mg PO Q6H PRN PRN tab 12/13/18 [Rx Last Taken Unknown] buspirone 10 mg tablet 10 mg PO BID tab 10/23/19 [History Last Taken 01/13/21] dicyclomine 10 mg capsule 10 mg PO TIDAC cap 10/23/19 [History Last Taken 01/13/21] potassium chloride 20 mEq tablet,extended release(part/cryst) 20 meq PO BID tab 10/23/19 [History Last Taken 01/13/21] lorazepam 0.5 mg tablet 0.5 mg PO DAILY PRN 11/05/19 [History Last Taken Unknown] furosemide [Lasix] 20 mg PO DAILY 01/13/21 [History Last Taken 01/13/21] fluoxetine 20 mg PO DAILY 01/14/21 [History Last Taken Unknown] Allergy/AdvReac Type Severity Reaction Status Date / Time Penicillins Allergy Hives Verified 03/06/21 10:57 DUST Allergy itchy eyes Uncoded 03/06/21 10:57 SEASONAL Allergy itchy eyes Uncoded 03/06/21 10:57 Family History Father Colon cancer Mother Cancer pancreatic Surgical History History of appendectomy History of cholecystectomy History of hysterectomy History of tubal ligation Social History Smoking Status: Former smoker Tobacco: How many years used: 25 how long ago did patient quit smokin, 0.5ppd second hand exposure: Yes alcohol intake: never ROS ROS Narrative All review of systems were negative except as mentioned above in the history of present illness and the other review of systems. Vital Signs Vital Signs Vital Signs: 03/06/21 10:58 03/06/21 13:00 03/06/21 13:27 Temperature 36.3 C L 36.3 C L Temperature Source Temporal Temporal Pulse Rate 98 89 89 Respiratory Rate 17 16 16 Blood Pressure 159/102 H 149/88 H 149/88 H Blood Pressure Mean 121 108 108 Pulse Ox 95 96 96 Oxygen Delivery Method Nasal Cannula Room Air Room Air Oxygen Flow Rate (L/min) 3 Weight Weight: 119.295 kg Body Mass Index (BMI) 39.9 Physical Exam Const alert and no apparent distress Resp normal respiratory effort, no retractions, no use of accessory muscles and clear to auscultation bilaterally Cardio regular rate, regular rhythm, S1 normal heart sound and S2 normal heart sound GI normal to inspection, nondistended, normoactive bowel sounds, soft to palpation, non-tender and non-distended Extremity normal to inspection Skin no rashes or lesions noted and no wounds Neuro Sensorium / Orientation: awake and alert Psych Mood & Affect: anxious Results Lab / Micro Data Attestation: I reviewed the patient's lab results. Result Diagrams: 03/06/21 11:44 03/06/21 11:44 Labs: Laboratory Results - last 24 hr 03/06/21 11:44: WBC 3.6 L, RBC 4.28, Hgb 12.6, Hct 41.8, MCV 97.7, MCH 29.4, MCHC 30.1 L, RDW Std Deviation 60.7 H, RDW Coeff of Jaun 16.8 H, Plt Count 173, MPV 9.9, Immature Gran % (Auto) 0.300, Neut % (Auto) 82.6 H, Lymph % (Auto) 11.2 L, [place] % (Auto) 5.3, Eos % (Auto) 0.3, Baso % (Auto) 0.3, Absolute Neuts (auto) 2.9, Absolute Lymphs (auto) 0.40 L, Nucleated RBC % 0, Differential Comment SCANNED, Diff Path Review October03/06/21 11:44: Sodium 142, Potassium 3.3 L, Chloride 106, Carbon Dioxide 27.0, Anion Gap 9, BUN 9, Creatinine 1.19 H, Estim Creat Clear Calc 51.35, Est GFR (MDRD) Af Amer 60, Est GFR (MDRD) Non-Af 49 L, BUN/Creatinine Ratio 7.6 L, Glucose 106, Calcium 9.1 03/06/21 11:44: Ethyl Alcohol < 3.0 03/06/21 11:44: PT 11.9, INR 0.9 Micro: Microbiology 03/06/21 11:30 Nasal Secretion SARS-CoV-2 Antigen (Rapid) - Final Radiology Impression Chest X-Ray 03/06/21 11:45 IMPRESSION: Normal x-ray examination of the chest. Electronically Signed: Darius Carbajal MD at 12:55 EDT Tel , Service support , Assessment & Plan Assessment/Plan (1) Alcohol withdrawal: QUALIFIERS: Complication of substance-induced condition: uncomplicated Qualified Code(s): F10.230 - Alcohol dependence with withdrawal, uncomplicated PLAN: 1. Acute alcohol withdrawal Patient desiring treatment for acute alcohol withdrawal Patient will be started on phenobarbital taper in addition medicine to see. Patient already established with [facility] where she sees counselors. We will see if that is the course of action that she will continue with or if she will do another type of program. Additional medications to help with other somatic complaints associated withdraw. 2. VTE prophylaxis: Not indicated 3. Covid vaccine: Patient was asked if she has been vaccinated she says she has not but she is actually interested in receiving the vaccine. Spoke with pharmacy and we do not have the [employer] vaccine so patient will receive the [employer] vaccine. Patient will need to follow-up to have the second vaccination in roughly 3 weeks. Patient has previously contracted COVID-19. Patient advised that she may feel ill after receiving her vaccine given her previous exposure. Charges/Coding Visit Charges Inpatient E&M: 80680 Init Hosp L2
[2021-03-06] MEDS: hydrOXYzine PAM 25 MG Capsule 50 MG PO ×2 (14:56→19:34)
[2021-03-06] MEDS: Phenobarbital 32.4 MG Tablet 64.8 MG PO ×3 (14:56→22:22)
[2021-03-06] MEDS: Ibuprofen 600 MG Tablet PO ×2 (14:56→22:23)
--- NOTE | 2021-03-06 16:08 | PCS.PANDOC ---
PANDEMIC DOCUMENTATION INITIATED: Date: 01/17/2021 Time: 190
[2021-03-06] MEDS: Potassium Chloride Oral Tablet 20 MEQ PO (16:23)
[2021-03-06] MEDS: Dicyclomine 10 MG Capsule PO (16:28)
[2021-03-06] MEDS: Gabapentin 300 MG Capsule PO (16:28)
[2021-03-06] MEDS: Acetaminophen 325 MG Tablet 650 MG PO ×2 (16:28→22:22)
[2021-03-06 21:39] LABS: Amphetamine Urine VISTA NEGATIVE (<1000 ng/mL); Barbiturate Urine VISTA POSITIVE (< 200 ng/mL); Benzodiazepine Urine VISTA NEGATIVE (< 200 ng/mL); Cocaine Urine VISTA NEGATIVE (< 300 ng/mL); Ecstacy Urine VISTA NEGATIVE (< 500 ng/mL); Methadone Urine VISTA NEGATIVE (< 300 ng/mL); PCP Urine VISTA NEGATIVE (< 25 ng/mL); THC Urine VISTA POSITIVE (< 50 ng/mL); Vista UDS pH Range 6
[2021-03-06] MEDS: busPIRone 5 MG Tablet 10 MG PO (22:18)
[2021-03-06] MEDS: Atorvastatin Calcium 80 MG Tablet PO (22:18)
[2021-03-06] MEDS: traZODone 100 MG Tablet PO (22:44)
[2021-03-07] MEDS: Gabapentin 300 MG Capsule PO ×2 (03:44→16:27)
[2021-03-07] MEDS: hydrOXYzine PAM 25 MG Capsule 50 MG PO ×2 (03:44→14:46)
[2021-03-07] MEDS: Phenobarbital 32.4 MG Tablet 64.8 MG PO ×6 (03:45→22:05)
[2021-03-07 03:50] VITALS: BP 109/79; PULSE 85; RESP 18; TEMP 36.6; O2SAT 94
[2021-03-07] MEDS: Dicyclomine 10 MG Capsule PO ×3 (06:47→16:27)
[2021-03-07 08:30] VITALS: BP 123/77; PULSE 68; RESP 18; TEMP 36.3; O2SAT 96
[2021-03-07] MEDS: Potassium Chloride Oral Tablet 20 MEQ PO ×2 (08:57→16:27)
[2021-03-07] MEDS: FLUoxetine 20 MG Capsule PO (08:57)
[2021-03-07] MEDS: Pantoprazole Sodium 40 MG Tablet PO (08:58)
[2021-03-07] MEDS: Folic Acid 1 MG Tablet PO (08:58)
[2021-03-07] MEDS: Thiamine Hydrochloride 100 MG Tablet PO (08:58)
[2021-03-07] MEDS: busPIRone 5 MG Tablet 10 MG PO ×2 (08:58→21:38)
[2021-03-07] MEDS: Furosemide 20 MG Tablet PO (08:59)
[2021-03-07] MEDS: Ondansetron 8 MG Tablet PO (09:28)
[2021-03-07] MEDS: COVID-19 VACC, MRNA(PFIZER)/PF 30 MCG/0.3 ML SYRINGE IM (11:52)
--- NOTE | 2021-03-07 12:32 | PCM.PN.HOSP ---
Subjective Subjective +Nausea. Objective Data Objective Data Vital Signs: Vital Signs Temp Pulse Resp BP Pulse Ox 36.3 C L 68 18 123/77 H 96 03/07/21 08:30 03/07/21 08:30 03/07/21 08:30 03/07/21 08:30 03/07/21 08:30 Oxygen Flow Rate (L/min) 3 Oxygen Delivery Method Room Air Weight: 117.48 kg Body Mass Index (BMI) 39.4 Intake & Output: Intake and Output for Last 24 Hours 03/05/21 03/06/21 03/07/21 23:59 23:59 23:59 Intake Total 400 / 400 600 / 600 Balance 400 / 400 600 / 600 Lab / Micro Data Result Diagrams: 03/06/21 11:44 03/06/21 11:44 Labs: Laboratory Results - last 24 hr 03/06/21 21:10: Urine Opiates Screen NEGATIVE, Urine Methadone Screen NEGATIVE, Ur Barbiturates Screen POSITIVE H, Ur Phencyclidine Scrn NEGATIVE, Ur Amphetamines Screen NEGATIVE, U Methamphetamin-MDMA NEGATIVE, U Benzodiazepines Scrn NEGATIVE, Urine Cocaine Screen NEGATIVE, U Cannabinoids Screen POSITIVE H, Ur Drug Screen Comment Micro: Microbiology 03/06/21 11:30 Nasal Secretion SARS-CoV-2 Antigen (Rapid) - Final Radiography Diagnostic Testing: Radiology Impression Chest X-Ray 03/06/21 11:45 IMPRESSION: Normal x-ray examination of the chest. Electronically Signed: Darius Carbajal MD at 12:55 EDT Tel , Service support , Physical Exam Const alert Resp normal respiratory effort, no retractions, no use of accessory muscles and clear to auscultation bilaterally Cardio regular rate, regular rhythm, S1 normal heart sound and S2 normal heart sound GI normal to inspection, nondistended, normoactive bowel sounds, soft to palpation, non-tender, non-distended and hepatosplenomegaly Extremity normal to inspection and full ROM Assessment & Plan Assessment/Plan (1) Alcohol withdrawal: QUALIFIERS: Complication of substance-induced condition: uncomplicated Qualified Code(s): F10.230 - Alcohol dependence with withdrawal, uncomplicated PLAN: 1. Acute alcohol withdrawal Patient desiring treatment for acute alcohol withdrawal Patient will be started on phenobarbital taper in addition medicine to see. Patient already established with [facility] where she sees counselors. We will see if that is the course of action that she will continue with or if she will do another type of program. Additional medications to help with other somatic complaints associated withdraw. 2. VTE prophylaxis: Not indicated 3. Covid vaccine: Patient was asked if she has been vaccinated she says she has not but she is actually interested in receiving the vaccine. Spoke with pharmacy and we do not have the [employer] vaccine so patient will receive the [employer] vaccine. Patient will need to follow-up to have the second vaccination in roughly 3 weeks. Patient has previously contracted COVID-19. Patient advised that she may feel ill after receiving her vaccine given her previous exposure. 4. Left 5th proximal phalanx fracture surgical shoe while up. follow up with podiatry as outpt. Charges/Coding Visit Charges Inpatient E&M: 42809 Subs Hosp L2
[2021-03-07 14:00] VITALS: BP 110/43; PULSE 78; RESP 16; TEMP 36.4; O2SAT 97
[2021-03-07 15:00] LABS: Pathologist Review Reviewed
[2021-03-07] MEDS: Acetaminophen 325 MG Tablet 650 MG PO (15:04)
[2021-03-07 18:00] VITALS: BP 102/63; PULSE 79; RESP 16; TEMP 36.6; O2SAT 99
[2021-03-07 20:00] VITALS: RESP 20
[2021-03-07 21:30] VITALS: BP 100/68; PULSE 72; RESP 20; TEMP 36.4; O2SAT 99
[2021-03-07] MEDS: Atorvastatin Calcium 80 MG Tablet PO (21:38)
[2021-03-08 02:56] VITALS: BP 106/57; PULSE 72; RESP 18; TEMP 36.6; O2SAT 99
[2021-03-08] MEDS: Phenobarbital 32.4 MG Tablet 64.8 MG PO ×6 (02:59→22:38)
[2021-03-08] MEDS: Dicyclomine 10 MG Capsule PO ×3 (06:31→15:18)
[2021-03-08 08:10] VITALS: BP 102/55; PULSE 75; RESP 18; TEMP 37.1; O2SAT 97
[2021-03-08] MEDS: Thiamine Hydrochloride 100 MG Tablet PO (08:20)
[2021-03-08] MEDS: Potassium Chloride Oral Tablet 20 MEQ PO ×2 (08:20→17:11)
[2021-03-08] MEDS: Folic Acid 1 MG Tablet PO (08:20)
[2021-03-08] MEDS: Acetaminophen 325 MG Tablet 650 MG PO ×2 (08:23→18:51)
[2021-03-08] MEDS: Pantoprazole Sodium 40 MG Tablet PO (10:22)
[2021-03-08] MEDS: Furosemide 20 MG Tablet PO (10:22)
[2021-03-08] MEDS: busPIRone 5 MG Tablet 10 MG PO ×2 (10:23→21:34)
[2021-03-08] MEDS: FLUoxetine 20 MG Capsule PO (10:23)
--- NOTE | 2021-03-08 10:41 | ADDICTION ---
This food writer met with PT to conduct ASAM, MSE, AUDIT assessments and to plan for d/c. PT A+Ox4 and participated actively. All assessments completed, faxed to [facility] and placed in PT's chart. PT plans to f/u with [facility] for residential treatment and follow-up counseling services. PT did not indicate a need for transportation post d/c from [facility].
[2021-03-08] MEDS: Gabapentin 300 MG Capsule PO (12:05)
--- NOTE | 2021-03-08 13:20 | PN.HOSP_ITS ---
Subjective Subjective Very anxious today. Stated that she is very anxious about many of the issues throughout the 10 to when she is discharged in regards to mending fences with her family and friends. Objective Data Objective Data Vital Signs: Vital Signs Temp Pulse Resp BP Pulse Ox 37.1 C 75 18 102/55 L 97 03/08/21 08:10 03/08/21 08:10 03/08/21 08:10 03/08/21 08:10 03/08/21 08:10 Oxygen Flow Rate (L/min) 3 Oxygen Delivery Method Nasal Cannula Weight: 117.48 kg Body Mass Index (BMI) 39.4 Intake & Output: Intake and Output for Last 24 Hours 03/06/21 03/07/21 03/08/21 23:59 23:59 23:59 Intake Total 400 / 400 840 / 1540 700 / 700 Balance 400 / 400 840 / 1540 700 / 700 Lab / Micro Data Result Diagrams: 03/06/21 11:44 03/06/21 11:44 Labs: Laboratory Results - last 24 hr 03/06/21 11:44: Diff Path Review Reviewed Micro: Microbiology 03/06/21 11:30 Nasal Secretion SARS-CoV-2 Antigen (Rapid) - Final Physical Exam Const alert Resp normal respiratory effort, no retractions, no use of accessory muscles and clear to auscultation bilaterally Cardio regular rate, regular rhythm, S1 normal heart sound and S2 normal heart sound GI normal to inspection, nondistended, normoactive bowel sounds, soft to palpation, non-tender and non-distended Extremity normal to inspection Psych affect normal Assessment & Plan Assessment/Plan (1) Alcohol withdrawal: QUALIFIERS: Complication of substance-induced condition: uncomplicated Qualified Code(s): F10.230 - Alcohol dependence with withdrawal, uncomplicated PLAN: 1. Acute alcohol withdrawal * Patient desiring treatment for acute alcohol withdrawal * Patient will be started on phenobarbital taper in addition medicine to see. Patient already established with [facility] where she sees counselors. We will see if that is the course of action that she will continue with or if she will do another type of program. * Additional medications to help with other somatic complaints associated withdraw. * Discussed with patient that she will have mend fences with her family when things are outside and on but she is making the first step had a long journey. 2. VTE prophylaxis: Not indicated 3. Covid vaccine: Patient was asked if she has been vaccinated she says she has not but she is actually interested in receiving the vaccine. Spoke with pharmacy and we do not have the [employer] vaccine so patient will receive the [employer] vaccine. Patient will need to follow-up to have the second vaccination in roughly 3 weeks. Patient has previously contracted COVID-19. Patient advised that she may feel ill after receiving her vaccine given her previous exposure. 4. Left 5th proximal phalanx fracture * surgical shoe while up. * follow up with podiatry as outpt. 5. Anxiety * Patient very overwhelmed with everything. We did talk about adding lorazepam. For that we can do it while she is here but I would not discharge her on discharge. She is agreeable to that. Greater than 35 minutes which greater than 50% of time was discussing with the patient about alcohol withdrawal, anxiety. Charges/Coding Visit Charges Inpatient E&M: 36307 Subs Hosp L3
--- NOTE | 2021-03-08 13:34 | NURSING ---
call placed to patient's sister at her request asking that she bring clothes for discharge for tomorrow.
[2021-03-08 13:39] VITALS: BP 118/64; PULSE 92; RESP 18; TEMP 36.6; O2SAT 96
[2021-03-08] MEDS: LORazepam 0.5 MG Tablet PO (14:00)
[2021-03-08 18:47] VITALS: BP 119/71; PULSE 97; RESP 17; TEMP 37.7; O2SAT 96
[2021-03-08 21:00] VITALS: RESP 18
[2021-03-08 21:29] VITALS: BP 142/57; PULSE 77; RESP 18; TEMP 37.6; O2SAT 95
[2021-03-08] MEDS: Atorvastatin Calcium 80 MG Tablet PO (21:34)
[2021-03-08] MEDS: QUEtiapine 25 MG Tablet 50 MG PO (21:34)
[2021-03-09] MEDS: Phenobarbital 32.4 MG Tablet 64.8 MG PO (05:50)
[2021-03-09] MEDS: Acetaminophen 325 MG Tablet 650 MG PO (05:55)
[2021-03-09 05:57] VITALS: BP 125/65; PULSE 98; RESP 18; TEMP 36.8; O2SAT 97
[2021-03-09] MEDS: LORazepam 0.5 MG Tablet PO (06:26)
[2021-03-09] MEDS: Dicyclomine 10 MG Capsule PO (06:26)
--- NOTE | 2021-03-09 09:02 | PCM.TXEXTCAR ---
Diet 03/06/21 16:32 Diet: Regular - General Is pt able to select menu?: Yes Routine Orders/Code Status Suppository Type: Dulcolax 10mg Suppository Frequency: Daily PRN Code Status: Full Code Therapies Weight Bearing: Weight bearing as tolerated Extremity Affected:: Bilateral Lower Physical Therapy: Eval and Treat Occupational Therapy: Eval and Treat Speech Therapy: Eval and Treat Problem/Diagnosis (1) Alcohol withdrawal: Status: Acute Allergies/Procedures Done in Hospital Allergies Penicillins Allergy (Verified 03/06/21 10:57) Hives DUST Allergy (Uncoded 03/06/21 10:57) itchy eyes SEASONAL Allergy (Uncoded 03/06/21 10:57) itchy eyes Type of Care/Length of Stay Estimated LOS: Convalescent Care Less Than 30 days Type of Care Needed: Skilled Rehab Potential: Good Prognosis: Good Additional Orders/Day of Discharge Day of Discharge: 03/09/21 Discharge Plan Admission Admit Date/Time: 03/06/21 13:58 Primary Reason for Your Visit: Acute alcohol withdrawal syndrome Attending Provider: Javier Xiao Primary Care Provider: Karl Moran Discharge Orders/Prescriptions Prescriptions: New thiamine HCl (vitamin B1) [Vitamin B-1] 100 mg Tablet 100 mg PO DAILYCM Qty: 0 RF: 0 folic acid 1 mg Tablet 1 mg PO DAILY@0800 Qty: 0 RF: 0 furosemide 20 mg Tablet 20 mg PO DAILY PRN (Reason: leg swelling) Qty: 0 RF: 0 Continued buspirone 10 mg tablet 10 mg PO BID RF: 0 dicyclomine 10 mg capsule 10 mg PO TIDAC RF: 0 rosuvastatin 40 MG tablet 40 mg PO QHS RF: 0 pantoprazole 40 MG tablet 40 mg PO DAILY RF: 0 albuterol sulfate 1 INHALER inhaler 1 - 2 puff inhalation Q4H PRN PRN (Reason: Shortness Of Breath) RF: 0 acetaminophen 325 MG tablet 650 mg PO Q6H PRN PRN (Reason: Mild Pain (1-3)/Temp > 100.7 F) RF: 0 fluoxetine 20 mg Capsule 20 mg PO DAILY RF: 0 benztropine 0.5 mg tablet 0.5 mg PO BID PRN PRN (Reason: shaking) RF: 0 quetiapine 25 mg tablet 25 - 75 mg PO QHS PRN PRN (Reason: Insomnia) RF: 0 lorazepam [Ativan] 0.5 mg tablet 0.5 mg PO DAILY PRN (Reason: Anxiety) Qty: 7 RF: 0 Changed potassium chloride 20 mEq tablet,ER particles/crystals 40 meq PO DAILY Qty: 0 RF: 0 Referrals / Follow Up: Karl Moran MD [Primary Care Provider] - Disposition Disposition (needs filled in before D/C Order can be placed[facility]
[2021-03-09 09:10] VITALS: BP 135/68; PULSE 93; RESP 18; TEMP 37.1; O2SAT 98
[2021-03-09] MEDS: Pantoprazole Sodium 40 MG Tablet PO (09:15)
[2021-03-09] MEDS: busPIRone 5 MG Tablet 10 MG PO (09:15)
[2021-03-09] MEDS: Gabapentin 300 MG Capsule PO (09:16)
[2021-03-09] MEDS: Potassium Chloride Oral Tablet 20 MEQ PO (09:16)
[2021-03-09] MEDS: Thiamine Hydrochloride 100 MG Tablet PO (09:16)
[2021-03-09] MEDS: FLUoxetine 20 MG Capsule PO (09:16)
[2021-03-09] MEDS: Folic Acid 1 MG Tablet PO (09:16)
--- NOTE | 2021-03-09 09:26 | PCM.DC ---
Discharge Instructions Diet Discharge Diet: Low fat / Low cholesterol Activity Discharge Activity: May Not Drive Weight Bearing Status: Weight bearing as tolerated Dressing / Incision Call your doctor if you observe: Fever of 101 or Higher, Coldness, Increased Pain, Numbness or Tingling, Change in Color, Inability to urinate, Inability to have a bowel movement, Using more than 1 pad per hour, Shortness of breath, Dizziness, Fainting spells, Swelling in the ankles, Chest pain, Prolonged hiccupping, Increased palpitations (irregular heartbeat), Calf discomfort and Uncontrolled pain Follow Up Care Test Results: Test results from this visit will be discussed in further detail at your follow-up appointment, if applicable. Discharge Plan Admission Admit Date/Time: 03/06/21 13:58 Primary Reason for Your Visit: Acute alcohol withdrawal syndrome Attending Provider: Javier Xiao Primary Care Provider: Karl Moran Discharge Orders/Prescriptions Prescriptions: New thiamine HCl (vitamin B1) [Vitamin B-1] 100 mg Tablet 100 mg PO DAILYCM Qty: 0 RF: 0 folic acid 1 mg Tablet 1 mg PO DAILY@0800 Qty: 0 RF: 0 furosemide 20 mg Tablet 20 mg PO DAILY PRN (Reason: leg swelling) Qty: 0 RF: 0 Continued buspirone 10 mg tablet 10 mg PO BID RF: 0 dicyclomine 10 mg capsule 10 mg PO TIDAC RF: 0 rosuvastatin 40 MG tablet 40 mg PO QHS RF: 0 pantoprazole 40 MG tablet 40 mg PO DAILY RF: 0 albuterol sulfate 1 INHALER inhaler 1 - 2 puff inhalation Q4H PRN PRN (Reason: Shortness Of Breath) RF: 0 acetaminophen 325 MG tablet 650 mg PO Q6H PRN PRN (Reason: Mild Pain (1-3)/Temp > 100.7 F) RF: 0 fluoxetine 20 mg Capsule 20 mg PO DAILY RF: 0 benztropine 0.5 mg tablet 0.5 mg PO BID PRN PRN (Reason: shaking) RF: 0 quetiapine 25 mg tablet 25 - 75 mg PO QHS PRN PRN (Reason: Insomnia) RF: 0 lorazepam [Ativan] 0.5 mg tablet 0.5 mg PO DAILY PRN (Reason: Anxiety) Qty: 7 RF: 0 Changed potassium chloride 20 mEq tablet,ER particles/crystals 40 meq PO DAILY Qty: 0 RF: 0 Referrals / Follow Up: Karl Moran MD [Primary Care Provider] - Brina Aranda DPM [STAFF PHYSICIAN] - Within 2 Weeks (Left fifth proximal phalanx fracture.) Disposition Disposition (needs filled in before D/C Order can be placed): [facility]
--- NOTE | 2021-03-09 14:42 | DS.PCM_ITS ---
Providers Date of Admission: 03/06/21 Primary Care Physician: Dr. Karl Moran MD Reason For Visit: ALCOHOL WITHDRAWAL Diagnosis Discharge Diagnosis (1) Alcohol withdrawal: Status: Acute Code(s): F10.239 - Alcohol dependence with withdrawal, unspecified Qualifiers: Complication of substance-induced condition: uncomplicated Qualified Code(s): F10.230 - Alcohol dependence with withdrawal, uncomplicated Medications at Discharge Home Medications albuterol sulfate 1 - 2 puff INHALATION Q4H PRN PRN 12/09/18 pantoprazole 40 mg PO DAILY 12/09/18 rosuvastatin 40 mg PO QHS 12/09/18 acetaminophen 650 mg PO Q6H PRN PRN tab 12/13/18 buspirone 10 mg tablet 10 mg PO BID tab 10/23/19 dicyclomine 10 mg capsule 10 mg PO TIDAC cap 10/23/19 fluoxetine 20 mg PO DAILY 01/14/21 benztropine 0.5 mg PO BID PRN PRN 03/08/21 quetiapine 25 - 75 mg PO QHS PRN PRN 03/08/21 folic acid 1 mg PO DAILY@0800 #0 tab 03/09/21 furosemide 20 mg PO DAILY PRN #0 tab 03/09/21 lorazepam [Ativan] 0.5 mg PO DAILY PRN #7 tab 03/09/21 potassium chloride 40 meq PO DAILY #0 tab 03/09/21 thiamine HCl (vitamin B1) [Vitamin B-1] 100 mg PO DAILYCM #0 tab 03/09/21 Hospital Course Summary of Care Provided Hospital Course: [id number] female admitted for acute alcohol withdrawal syndrome. Patient drinks a liter of wine every day. Patient had nausea and malaise diffuse myalgia along with tremors. Her further hospital course as mentioned below 1. Acute alcohol withdrawal syndrome with history of chronic alcohol use and dependence: Patient was treated with phenobarbital regimen along with other adjunctive medications as needed. Patient was seen by 180 and determined to be candidate for inpatient alcohol rehab. Subsequently patient is transferred to inpatient alcohol rehab program. 2. VTE prophylaxis: Not indicated 3. Covid vaccine: The patient was not vaccinated before but she got vaccinated [employer]. She is to follow-up for second session 3 weeks after. Patient had previously had COVID-19 infection. 4. Left 5th proximal phalanx fracture: Surgical history of while patient is. Follow-up commercial title examiner as an outpatient. 5. Anxiety Patient very overwhelmed with everything. Patient on low-dose of lorazepam 0.5 mg. As patient is going to inpatient rehab I gave prescription Ativan 0.5 mg daily as needed for total of 7 tablets. OARSS reviewed and patient has high narcotic score to 91 CD3 50. Overdose risk 530. I think patient needs Ativan as an inpatient as needed as per CIWA score for anxiety in a monitored setting. Discharge medication reconciliation done. Discharge follow-up instructions completed. Discharge process discussed with the patient and all questions were answered to patient's satisfaction. Total time spent, exact 35 minutes on discharge meds reconciliation, examinati on, coordination of care with nurses and ancillary staff, review of imaging and blood test and discussion with the patient on follow-up instructions Physical Exam Narrative General: Alert, Oriented x3, Cooperative, morbid obesity BMI 39.4 kg/m? HEENT: Atraumatic, PERRLA, EOMI, Normocephalic Oral: No Gingival or Mucosal Lesions/ Ulcerations Neck: Supple, No JVD, Negative Carotid Bruits Lungs: Air entry diminished in bilateral lung bases. No crepitation/rhonchi Cardiovascular: Regular rate, Regular Rhythm, Normal S1, Normal S2, No murmurs Abdomen: Bowel Sounds Present, Soft, Non Tender, Non-Distended : No renal angle tenderness. No suprapubic tenderness. Extremities: No edema, Capillary Refill Less than 3 Seconds Skin: No rashes, No breakdown Musculoskeletal: No Tenderness to Palpation of Joints or Extremities Neurological: Cranial nerves II-XII grossly intact, DTR 2+/4 and Symmetrical, Neuro grossly intact Psych/Mental Status: Normal Affect, Appropriate. Weight / BMI Weight Weight: 259 lb Body Mass Index (BMI) 39.4 ABG / Lab / Microbiology Data Result Diagrams: 03/06/21 11:44 03/06/21 11:44 Microbiology: Microbiology 03/06/21 11:30 Nasal Secretion SARS-CoV-2 Antigen (Rapid) - Final Meaningful Use Info Meaningful Use Diagnoses (Choose all that apply): None applicable Discharge Plan Admission Admit Date/Time: 03/06/21 13:58 Primary Reason for Your Visit: Acute alcohol withdrawal syndrome Attending Provider: Javier Xiao Primary Care Provider: Karl Moran Discharge Orders/Prescriptions Prescriptions: New thiamine HCl (vitamin B1) [Vitamin B-1] 100 mg Tablet 100 mg PO DAILYCM Qty: 0 RF: 0 folic acid 1 mg Tablet 1 mg PO DAILY@0800 Qty: 0 RF: 0 furosemide 20 mg Tablet 20 mg PO DAILY PRN (Reason: leg swelling) Qty: 0 RF: 0 Continued buspirone 10 mg tablet 10 mg PO BID RF: 0 dicyclomine 10 mg capsule 10 mg PO TIDAC RF: 0 rosuvastatin 40 MG tablet 40 mg PO QHS RF: 0 pantoprazole 40 MG tablet 40 mg PO DAILY RF: 0 albuterol sulfate 1 INHALER inhaler 1 - 2 puff inhalation Q4H PRN PRN (Reason: Shortness Of Breath) RF: 0 acetaminophen 325 MG tablet 650 mg PO Q6H PRN PRN (Reason: Mild Pain (1-3)/Temp > 100.7 F) RF: 0 fluoxetine 20 mg Capsule 20 mg PO DAILY RF: 0 benztropine 0.5 mg tablet 0.5 mg PO BID PRN PRN (Reason: shaking) RF: 0 quetiapine 25 mg tablet 25 - 75 mg PO QHS PRN PRN (Reason: Insomnia) RF: 0 lorazepam [Ativan] 0.5 mg tablet 0.5 mg PO DAILY PRN (Reason: Anxiety) Qty: 7 RF: 0 Changed potassium chloride 20 mEq tablet,ER particles/crystals 40 meq PO DAILY Qty: 0 RF: 0 Referrals / Follow Up: Karl Moran MD [Primary Care Provider] - Brina Aranda DPM [STAFF PHYSICIAN] - Within 2 Weeks (Left fifth proximal phalanx fracture.) Disposition Disposition (needs filled in before D/C Order can be placed): [facility] Charges/Coding Visit Charges Inpatient E&M: 16345 Disch Hosp
== END 2021-03-09 10:00 | disposition skilled nursing facility (03) | DRG 897 ==
LOC: ED 13:10 → MS2 13:36
PROVIDERS: Emergency Provider Emergency Medicine; PCP Family Medicine; Visit Provider Internal Medicine
DX: F10.230 Alcohol dependence with withdrawal, uncomplicated (principal); I45.10 Unspecified right bundle-branch block; S92.912A Unspecified fracture of left toe(s), initial encounter for closed fracture; X58.XXXA Exposure to other specified factors, initial encounter; Y93.9 Activity, unspecified; Y92.9 Unspecified place or not applicable; E66.01 Morbid (severe) obesity due to excess calories; E78.5 Hyperlipidemia, unspecified; F32.A Depression, unspecified; F41.9 Anxiety disorder, unspecified; G47.33 Obstructive sleep apnea (adult) (pediatric); I12.9 Hypertensive chronic kidney disease with stage 1 through stage 4 chronic kidney disease, or unspecified chronic kidney disease; Z23 Encounter for immunization; J47.9 Bronchiectasis, uncomplicated; N18.1 Chronic kidney disease, stage 1; Z68.39 Body mass index [BMI] 39.0-39.9, adult; K21.9 Gastro-esophageal reflux disease without esophagitis; G43.909 Migraine, unspecified, not intractable, without status migrainosus; M19.90 Unspecified osteoarthritis, unspecified site; Z87.01 Personal history of pneumonia (recurrent); Z86.16 Personal history of COVID-19; Z86.2 Personal history of diseases of the blood and blood-forming organs and certain disorders involving the immune mechanism; Z86.19 Personal history of other infectious and parasitic diseases; Z87.19 Personal history of other diseases of the digestive system; Z86.718 Personal history of other venous thrombosis and embolism; Z79.899 Other long term (current) drug therapy; Z87.891 Personal history of nicotine dependence
CPT/HCPCS: 0001A; 71045; 80048; 80307; 82077; 85025; 85610; 87426; 91300; 93005; 99283; 90686; A4216

== ENCOUNTER 2021-06-08 15:00 | Inpatient (IN) | payer MEDICARE, MEDICAID, SELFPAY ==
[2021-06-08] VITALS (11 sets, daily range): BP systolic 96–146; BP diastolic 59–109; PULSE 73–87; RESP 16–20; TEMP 36.3–36.7; O2SAT 93–100; BMI 31.4; BMI 36.8
--- NOTE | 2021-06-08 15:11 | EKG12_ITS ---
Test Reason : STROKE TEAM Blood Pressure : / mmHG Vent. Rate : 079 BPM Atrial Rate : 079 BPM P-R Int : 156 ms QRS Dur : 136 ms QT Int : 462 ms P-R-T Axes : 052 072 012 degrees QTc Int : 529 ms Normal sinus rhythm Right bundle branch block Abnormal ECG Confirmed by RADHA CLINTON, MG ([id number]), telegraph editor UZMA HUSTON ([id number]) on 06/10/2021 10:05:27 AM Referred By: KIRSTIE Confirmed By:MG GARCIA MD
--- NOTE | 2021-06-08 15:11 | CT_ITS ---
STUDY: CT HEAD STROKE PROTOCOL W/O CONTRAST INJECTION REASON FOR EXAM: Female, 60 years old. Neuro deficit, acute, stroke suspected RADIATION DOSAGE (If Supplied By Facility): CTDIvol = ( 47.06 ) mGy, DLP = ( 890.33 ) mGycm TECHNIQUE: Transaxial CT imaging of the brain was performed without administration of intravenous contrast material. Individualized dose optimization techniques were used for this CT. COMPARISON: Comparison is made with prior study dated 03/02/2021. FINDINGS: Normal soft tissue structures. Normal calvarium. Normal size ventricles and extra-axial spaces for the patient''s age. Normal white matter tracts of the cerebral hemispheres. Normal basal ganglia and thalami. Normal brainstem. Normal cerebellum. There is no intracranial hemorrhage. There are no findings of an acute ischemic infarction. Minimal degree of mucosal thickening of the ethmoid sinuses and sphenoid sinus. CT/STROKE Brain/Head without Cont IMPRESSION: Normal unenhanced CT scan of the brain. N.B. : The above Results were Read Back by Kamran Velazquez MD to Eliazar Chavarria and understanding confirmed on 06/08/2021 15:29:20 (ET). Electronically Signed: Kamran Velazquez MD at 15:30 EST , Service support ,
--- NOTE | 2021-06-08 15:11 | CT_ITS ---
STUDY: CTA HEAD AND NECK WITH CONTRAST REASON FOR EXAM: Female, 60 years old. Neuro deficit, acute, stroke suspected RADIATION DOSAGE (If Supplied By Facility): CTDIvol = ( 37.49 ) mGy, DLP = ( 1838.54 ) mGycm TECHNIQUE: CT angiography was performed with a multi-detector CT scanner. Data acquisition was obtained from the skull base through the vertex following intravenous administration of IV 100mL [id number]-[id number]. MIP images were reconstructed from the axial data set. Post-processing of the angiographic images was performed, with multiplanar reformation and 3D reconstruction. Individualized dose optimization techniques were used for this CT. COMPARISON: No relevant priors. FINDINGS: Normal bilateral petrous carotid arteries. There is calcified plaque formation of the right cavernous carotid artery, without a cross-sectional luminal stenosis. There is calcified plaque formation of the left cavernous carotid artery, without a cross-sectional luminal stenosis. Normal right A1 segments of the anterior cerebral artery. Normal left A1 segments of the anterior cerebral artery. Normal intact anterior communicating artery (ACOM). Normal bilateral A2 segments of the anterior cerebral arteries. Normal right M1 and M2 segments of the middle cerebral arteries, with a normal M1 bifurcation. Normal left M1 and M2 segments of the middle cerebral arteries, with a normal M1 bifurcation. Normal right posterior communicating artery (PCOM). Normal left posterior communicating artery (PCOM). Normal bilateral vertebral arteries. Normal basilar artery with a normal basilar bifurcation. The visualized bilateral superior cerebellar (SCA) arteries are normal. Normal bilateral P1, P2 and visualized P3 segments of the posterior cerebral arteries. There is no demonstrated aneurysm of the [place] of [place]. Mucosal thickening of the ethmoid sinuses and sphenoid sinus. Heterogeneous enlargement of the right lobe of the thyroid gland. AORTIC ARCH: There is atherosclerotic calcific plaque formation of the aortic arch and great vessels arising from the aortic arch, without a hemodynamically significant stenosis. There is a normal origin of the brachiocephalic, left common carotid, and left subclavian arteries. Mildly stenotic atherosclerotic plaque formation at the origin of the left subclavian vein. RIGHT CAROTID ARTERIES: Normal right common carotid artery (CCA). Normal right common carotid bulb. There is moderate atherosclerotic plaque formation of the origin of the right internal carotid artery with an estimated stenosis of 50-60% stenosis. Normal visualized cervical portion of the right internal carotid artery. Normal origin of the right external carotid artery (ECA). LEFT CAROTID ARTERIES: Normal left common carotid artery (CCA). Normal left common carotid bulb. Normal origin of the left internal carotid (ICA) artery without a hemodynamically significant stenosis. Normal visualized cervical portion of the left internal carotid artery. Normal origin of the left external carotid artery (ECA). VERTEBRAL ARTERIES: Normal bilateral vertebral arteries. CT/STROKE CTA Head AND Neck W/Con IMPRESSION: 50-60% stenosis of the right internal carotid artery due to calcific plaque. N.B. : The above Results were Read Back by Kamran Velazquez MD to Eliazar Chavarria and understanding confirmed on 06/08/2021 15:39:39 (ET). Electronically Signed: Kamran Velazquez MD at 15:41 EST , Service support ,
--- NOTE | 2021-06-08 15:12 | EDS_ITS ---
HPI History of Present Illness Chief Complaint: Confusion Informant: EMS Narrative Narrative: 60-year-old with early onset dementia of unknown current severity presenting with trouble speaking of unknown duration. Family is not available for any history, history is mainly from EMS who picked the patient up after family called 911 after they were here in the emergency department waiting with her in the waiting room allegedly, got tired of waiting, took her home and called 911. She lives alone. Family found her like this apparently this morning. Unknown duration of symptoms. Review of systems is extremely limited since patient states yes to most review of systems, she is globally aphasic, and her answers are not reliable. [facility] Medical History (Updated 06/08/21 @ 15:[address] Eliazar Chavarria MD) Abdominal pain Abnormal liver CT Admitted to alcohol detoxification center Alcohol abuse Alcohol withdrawal Anemia Anxiety Arthritis Asthma Bronchiectasis Bronchitis Chronic renal failure Chronic renal insufficiency, stage I Colitis Colitis with rectal bleeding COPD (chronic obstructive pulmonary disease) Depression DVT (deep venous thrombosis) Endocarditis Essential (primary) hypertension Gastritis Gastroesophageal reflux disease History of diarrhea History of umbilical hernia HLD (hyperlipidemia) Idiopathic right ventricular dilation Leukopenia Migraine Morbid obesity GENNARO (obstructive sleep apnea) Osteoarthritis Pancytopenia Pneumonia Respiratory failure with hypoxia Respiratory insufficiency Respiratory tract infection due to COVID-19 virus Restrictive lung disease Right bundle branch block (RBBB) Right ventricular systolic dysfunction Sepsis Thrombocytopenia Home Medications albuterol sulfate 1 - 2 puff INHALATION Q4H PRN PRN 12/09/18 [History Last Taken Unknown] pantoprazole 40 mg PO DAILY 12/09/18 [History Last Taken 01/13/21] rosuvastatin 40 mg PO QHS 12/09/18 [History Last Taken 01/12/21] acetaminophen 650 mg PO Q6H PRN PRN tab 12/13/18 [Rx Last Taken Unknown] buspirone 10 mg tablet 10 mg PO BID tab 10/23/19 [History Last Taken 01/13/21] dicyclomine 10 mg capsule 10 mg PO TIDAC cap 10/23/19 [History Last Taken 01/13/21] fluoxetine 10 mg PO DAILY 01/14/21 [History Last Taken Unknown] benztropine 0.5 mg PO BID PRN PRN 03/08/21 [History Last Taken Unknown] quetiapine 200 mg PO QHS 03/08/21 [History Last Taken Unknown] folic acid 1 mg PO DAILY@0800 #0 tab 03/09/21 [Rx Last Taken Unknown] furosemide 20 mg PO DAILY PRN #0 tab 03/09/21 [Rx Last Taken Unknown] lorazepam [Ativan] 0.5 mg PO DAILY PRN #7 tab 03/09/21 [Rx Last Taken Unknown] potassium chloride 40 meq PO DAILY #0 tab 03/09/21 [Rx Last Taken 01/13/21] thiamine HCl (vitamin B1) [Vitamin B-1] 100 mg PO DAILYCM #0 tab 03/09/21 [Rx Last Taken Unknown] gabapentin 300 mg PO BID 06/08/21 [History Last Taken Unknown] magnesium oxide 400 mg PO DAILY 06/08/21 [History Last Taken Unknown] rivastigmine 4.6 mg TRANSDERMAL DAILY 06/08/21 [History Last Taken Unknown] Allergy/AdvReac Type Severity Reaction Status Date / Time Penicillins Allergy Hives Verified 06/08/21 15:22 DUST Allergy itchy eyes Uncoded 03/06/21 10:57 SEASONAL Allergy itchy eyes Uncoded 03/06/21 10:57 Family History Father Colon cancer Mother Cancer pancreatic Surgical History History of appendectomy History of cholecystectomy History of hysterectomy History of tubal ligation Social History Smoking Status: Former smoker Tobacco: How many years used: 25 how long ago did patient quit smokin, 0.5ppd second hand exposure: Yes alcohol intake: never ROS ROS ED Review of Systems ROS Unobtainable: due to mental status EXAM Physical Exam Const Vital Signs: 06/08/21 15:04 06/08/21 15:20 06/08/21 16:09 Temperature 98 F Temperature Source Temporal Pulse Rate 87 78 Respiratory Rate 16 16 Blood Pressure 137/109 H 110/89 H Blood Pressure Mean 118 96 Pulse Ox 93 93 98 Oxygen Delivery Method Room Air Room Air Nasal Cannula Oxygen Flow Rate (L/min) 2 Positive well nourished and well developed General Appearance ED: well developed and NAD HEENT Reports moist mucous membranes normocephalic and atraumatic Eyes PERRL and EOMs intact bilaterally Neck full ROM and supple Resp normal respiratory effort and clear to auscultation bilaterally Cardio regular rate, regular rhythm and no murmurs GI non-tender and non-distended Auscultation: normoactive bowel sounds Palpation: soft Back/Spine no CVA tenderness General Back: other FROM Extremity normal to inspection General Extremety ED: Negative for edema, pulses abnormal or tenderness General Extremity: Negative for edema or pulses abnormal Neuro CN's II-XII intact bilaterally and no sensory deficits noted Neuro Narrative: Global aphasia. No dysarthria. Sensorium / Orientation: awake, alert and oriented to person; Negative for oriented to place or oriented to time Motor Exam: strength 5/5 throughout Skin no rashes or lesions noted and no wounds STROKE Vital Signs/Narrative: Vital Signs Temp Pulse Resp BP Pulse Ox 06/08/21 16:09 78 16 110/89 H 98 06/08/21 15:20 93 06/08/21 15:04 98 F 87 16 137/109 H 93 Inital Vital Signs reviewed: Yes NIHSS Initial: 1a Level of Consciousness: 0 1b LOC Questions (Score 2 if aphasic/stupor): 2 1c LOC Commands (Only score 1st attempt): 0 2 Best Gaze (If aphasic, use reflexive mvmts.): 0 3 Visual: 0 4 Facial Palsy: 0 5 Motor Arm Right (UN = amputation/fusion): 0 5 Motor Arm Left: 0 6 Motor Leg Right: 2 6 Motor Leg Left: 2 7 Limb ataxia (Only + if out of proportion): 0 8 Sensory (Aphasia/stupor=0 or 1, coma=2): 1 9 Best Language: 2 10 Dysarthria (mute, coma=2, intubated=UN): 0 11 Extinction and Inattention (only scored if +): 0 Total Score: 9 MDM MDM MDM Narrative Medical decision making narrative: Patient was sent for noncontrast CT and CT angiography of the head and neck simultaneously since we called stroke team basically to evaluate for the possibility of an LVO, because if present she would need to be transferred emergently to a comprehensive center for perfusion imaging and further evaluation. Not a TPA candidate due to unknown last known well and family not reachable. Spoke with the stroke neurologist at [facility] who agrees with this plan. Contacted by radiologist at [address] CTA shows no LVO. He does show 50 to 60% stenosis of the right ICA, I discussed again with the stroke neurologist at [facility], she agrees medical management is indicated for this, and she does not have any indications to be transferred to a comprehensive center at this time. Discussed with hospitalist for admission and further management. Lab Data Attestation: I reviewed the patient's lab results. Labs: Laboratory Results - last 24 hr 06/08/21 06/08/21 06/08/21 15:15 15:15 15:15 WBC 3.4 L RBC 4.57 Hgb 12.6 Hct 39.9 MCV 87.3 MCH 27.6 MCHC 31.6 L RDW Std Deviation 44.0 H RDW Coeff of Jaun 13.8 Plt Count 151 MPV 10.1 Immature Gran % (Auto) 0.300 Neut % (Auto) 75.5 H Lymph % (Auto) 17.9 L Redwood % (Auto) 5.4 Eos % (Auto) 0.6 Baso % (Auto) 0.3 Absolute Neuts (auto) 2.5 Absolute Lymphs (auto) 0.60 L Nucleated RBC % 0 Differential Comment SCANNED Diff Path Review May foll PT 13.9 INR 1.1 APTT 31.0 Sodium 142 Potassium 3.5 Chloride 102 Carbon Dioxide 32.0 Anion Gap 8 BUN 11 Creatinine 1.12 H Estim Creat Clear Calc 52.59 Est GFR (MDRD) Af Amer 64 Est GFR (MDRD) Non-Af 53 L BUN/Creatinine Ratio 9.8 L Glucose 132 H Calcium 9.4 Troponin I High Sens 10 Ethyl Alcohol 06/08/21 15:25 WBC RBC Hgb Hct MCV MCH MCHC RDW Std Deviation RDW Coeff of Jaun Plt Count MPV Immature Gran % (Auto) Neut % (Auto) Lymph % (Auto) Redwood % (Auto) Eos % (Auto) Baso % (Auto) Absolute Neuts (auto) Absolute Lymphs (auto) Nucleated RBC % Differential Comment Diff Path Review PT INR APTT Sodium Potassium Chloride Carbon Dioxide Anion Gap BUN Creatinine Estim Creat Clear Calc Est GFR (MDRD) Af Amer Est GFR (MDRD) Non-Af BUN/Creatinine Ratio Glucose Calcium Troponin I High Sens Ethyl Alcohol < 3.0 Radiography Diagnostic Testing: Clinical Impression(s) from Imaging Studies Brain CT 06/08/21 15:11 IMPRESSION: Normal unenhanced CT scan of the brain. N.B. : The above Results were Read Back by Kamran Velazquez MD to Eliazar Chavarria and understanding confirmed on 06/08/2021 15:29:20 (ET). Electronically Signed: Kamran Velazquez MD at 15:30 EST , Service support , ADDENDUM: 06/08/21 1537 IMPRESSION: Normal unenhanced CT scan of the brain. N.B. : The above Results were Read Back by Kamran Velazquez MD to Eliazar Chavarria and understanding confirmed on 06/08/2021 15:29:20 (ET). Electronically Signed: Kamran Velazquez MD at 15:30 EST , Service support , Head/Neck CTA 06/08/21 15:11 IMPRESSION: 50-60% stenosis of the right internal carotid artery due to calcific plaque. N.B. : The above Results were Read Back by Kamran Velazquez MD to Eliazar Chavarria and understanding confirmed on 06/08/2021 15:39:39 (ET). Electronically Signed: Kamran Velazquez MD at 15:41 EST , Service support , ADDENDUM: 06/08/21 1548 IMPRESSION: 50-60% stenosis of the right internal carotid artery due to calcific plaque. N.B. : The above Results were Read Back by Kamran Velazquez MD to Eliazar Chavarria and understanding confirmed on 06/08/2021 15:39:39 (ET). Electronically Signed: Kamran Velazquez MD at 15:41 EST , Service support , EKG Initial EKG: Attestation: I personally reviewed and interpreted this EKG as follows: Interpretation: Sinus Rhythm, No Acute Injury Pattern and RBBB Prior EKG tracings: available for review Prior: Unchanged Stroke Documentation Questions Stroke Team Activated: Yes Was Patient considered for Endovascular Intervention?: No (No LVO, see above) IV Alteplase (t-PA) Administered: No (jennifer LEGER) Critical Care Time Critical Care Time: Yes Critical care time (excluding procedures): 30-74 minutes (32 min), Including time spent:, Discussing w/Patient &/or Family/Forensic Sergeant, Discussing w/Consultants, Arranging Admission or Transfer and Performing Direct Patient Care at Bedside Discharge Plan Dx/Rx/DC Orders Clinical Impression: Global aphasia Disposition Disposition: Acute Care Hospital [facility]
--- NOTE | 2021-06-08 15:14 | NURSING ---
STROKE ALERT 1518
[2021-06-08 15:22] LABS: Absolute Neutrophil Count 2.5 X10^3/uL (2.0-7.7); Basophil# 0.01 X10^3/uL; Basophil% 0.3 % (0-1); Differential Indicated SCAN CRITERIA MET; Eosinophil# 0.02 X10^3/uL; Eosinophils% 0.6 % (0-5); Hematocrit 39.9 % (37-47); Hemoglobin 12.6 g/dL (12.0-15.0); Lymphocyte % 17.9 % (19-41); Mean Corp Hgb Conc 31.6 g/dL (32-36); Mean Corpuscular Hgb 27.6 pg (27.0-32.0); Mean Corpuscular Volume 87.3 fL (81-99); Mean Platelet Vol. 10.1 fl (6.2-12.0); Monocyte# 0.18 X10^3/uL; Monocyte% 5.4 % (0-10); NRBC Flagged by Analyzer 0 % (0-5); Neutrophil # 2.54 X10^3/uL (2.7-7.7); Neutrophil % 75.5 % (47-70); POSITIVE DIFFERENTIAL YES; Platelet Count 151 K/mm3 (150-450); RBC Distribution Width CV 13.8 % (11.6-14.6); Red Blood Count 4.57 M/mm3 (4.2-5.4); White Blood Count 3.4 K/mm3 (4.4-11.0)
[2021-06-08 15:27] LABS: International Normalized Ratio 1.1; Prothrombin Time (Protime)PT. 13.9 SECONDS (11.7-14.9)
[2021-06-08 15:37] LABS: Anion Gap 8 (5-15); BUN 11 mg/dL (7-18); BUN/Creat Ratio 9.8 RATIO (10-20); Calcium,Total 9.4 mg/dL (8.5-10.1); Chloride 102 mmol/L (98-107); Creatinine, Serum 1.12 mg/dL (0.55-1.02); EST Glomerular Filtration Rate 53 mL/min (>60); Est Glom Filt Rate - Afr Amer 64 mL/min (>60); Estimated Creatinine Clearance 52.59 ml/min; Glucose 132 mg/dL (74-106); Potassium 3.5 mmol/L (3.5-5.1); Sodium Level 142 mmol/L (136-145); Troponin-I HS 10 pg/mL (3.0-54.0)
--- NOTE | 2021-06-08 15:48 | RAD_ITS ---
STUDY: X-RAY CHEST REASON FOR EXAM: Female, 60 years old. Confusion, stroke alert PAIN Neuro deficit, acute, stroke suspected TECHNIQUE: XR Chest 1 View COMPARISON: 03.06.21 FINDINGS: There is no demonstrated pleural abnormality. There is bilateral infiltrate. There is an elevated right hemidiaphragm. Question left pleural effusion Normal size heart. Normal mediastinum and myriam. Normal visualized pulmonary arteries. There is atherosclerotic calcification of the aortic arch with tortuosity. There are diffuse degenerative changes of the visualized thoracic spine. There is degenerative osteoarthritis of the bilateral shoulders. There is no demonstrated abnormality of the visualized soft tissue structures of the upper abdomen. RAD/Chest 1 View IMPRESSION: There is bilateral infiltrate. Question left pleural effusion Electronically Signed: Jose Miguel Esparza MD at 16:34 EST , Service support ,
[2021-06-08 15:55] LABS: Alcohol, Blood (Medical)-Serum < 3.0 mg/dL
[2021-06-08 15:59] LABS: Differential Comment SCANNED
--- NOTE | 2021-06-08 16:10 | CHAPLAIN ---
Type of Pastoral Visit ___ Initial Visit ___ Follow-up Visit ___ On-call Visit ___ General Patient Visit ___ Spiritual Assessment ___ Family Conference ___ Bereavement _x__ Rapid Response ___ Code Blue ___ Other (describe below) Pastoral Care Referral From ___ Patient ___ Family ___ Nurse ___ Physician ___ Manager Cath Lab ___ Pearl Digger _x__ Other (describe below) Sacrament/Intervention ___ Active listening ___ Anointing ___ Lutheran ___ Bereavement ___ Communion ___ Ellen exploration ___ ___ Life review ___ Prayer ___ Reconciliation ___ Sacrament of Sick _x__ Supportive presence ___ Wedding ___ Other (describe below) Pastoral Comments came to ED for the rapid response; patient was taken for CT; met with sister of pt to offer support and evaluate if there were needs for the pt;
--- NOTE | 2021-06-08 16:31 | NURSING ---
CARMELLA MATTHEWS/STROKE
--- NOTE | 2021-06-08 16:57 | HP.PCM_ITS ---
Documented by User: Trena Abdalla NP-C 06/08/21 17:31 HPI - General General Date of Admission: 06/08/21 Date of Service: 06/08/21 Chief Complaint: Altered mental status HPI Narrative ALFIE HOGAN, is a 60 F who presents with reports of increased confusion. Patient sister is at bedside and states that patient has been increasingly confused over the past week. Patient sisters reports that patient was admitted to [facility] at the beginning of May for similar symptoms and was diagnosed with Warnicke's encephalopathy. Patient has a history of alcohol abuse and was at a detoxification center prior to admission at [facility]. Patient is on many medications including BuSpar, dicyclomine, fluoxetine, gabapentin, lorazepam, Seroquel as well as patient receives medical marijuana Gummies. Patient sister reports that patient has been taking care of her own medications and it is possible that patient has been taking too many medications for too many marijuana Gummies. [facility] Medical History (Updated 06/08/21 @ 17:06 by Trena Abdalla NP-C) Abdominal pain Abnormal liver CT Admitted to alcohol detoxification center Alcohol abuse Alcohol withdrawal Anemia Anxiety Arthritis Asthma Bronchiectasis Bronchitis Chronic renal failure Chronic renal insufficiency, stage I Colitis Colitis with rectal bleeding COPD (chronic obstructive pulmonary disease) Depression DVT (deep venous thrombosis) Endocarditis Essential (primary) hypertension Gastritis Gastroesophageal reflux disease History of diarrhea History of umbilical hernia HLD (hyperlipidemia) Idiopathic right ventricular dilation Leukopenia Migraine Morbid obesity GENNARO (obstructive sleep apnea) Osteoarthritis Pancytopenia Pneumonia Respiratory failure with hypoxia Respiratory insufficiency Respiratory tract infection due to COVID-19 virus Restrictive lung disease Right bundle branch block (RBBB) Right ventricular systolic dysfunction Sepsis Thrombocytopenia Home Medications albuterol sulfate 1 - 2 puff INHALATION Q4H PRN PRN 12/09/18 [History Last Taken Unknown] pantoprazole 40 mg PO DAILY 12/09/18 [History Last Taken 01/13/21] rosuvastatin 40 mg PO QHS 12/09/18 [History Last Taken 01/12/21] acetaminophen 650 mg PO Q6H PRN PRN tab 12/13/18 [Rx Last Taken Unknown] buspirone 10 mg tablet 10 mg PO BID tab 10/23/19 [History Last Taken 01/13/21] dicyclomine 10 mg capsule 10 mg PO TIDAC cap 10/23/19 [History Last Taken 01/13/21] fluoxetine 10 mg PO DAILY 01/14/21 [History Last Taken Unknown] benztropine 0.5 mg PO BID PRN PRN 03/08/21 [History Last Taken Unknown] quetiapine 200 mg PO QHS 03/08/21 [History Last Taken Unknown] folic acid 1 mg PO DAILY@0800 #0 tab 03/09/21 [Rx Last Taken Unknown] furosemide 20 mg PO DAILY PRN #0 tab 03/09/21 [Rx Last Taken Unknown] lorazepam [Ativan] 0.5 mg PO DAILY PRN #7 tab 03/09/21 [Rx Last Taken Unknown] potassium chloride 40 meq PO DAILY #0 tab 03/09/21 [Rx Last Taken 01/13/21] thiamine HCl (vitamin B1) [Vitamin B-1] 100 mg PO DAILYCM #0 tab 03/09/21 [Rx Last Taken Unknown] gabapentin 300 mg PO BID 06/08/21 [History Last Taken Unknown] magnesium oxide 400 mg PO DAILY 06/08/21 [History Last Taken Unknown] rivastigmine 4.6 mg TRANSDERMAL DAILY 06/08/21 [History Last Taken Unknown] Allergy/AdvReac Type Severity Reaction Status Date / Time Penicillins Allergy Hives Verified 06/08/21 15:22 DUST Allergy itchy eyes Uncoded 03/06/21 10:57 SEASONAL Allergy itchy eyes Uncoded 03/06/21 10:57 Family History Father Colon cancer Mother Cancer pancreatic Surgical History History of appendectomy History of cholecystectomy History of hysterectomy History of tubal ligation Social History (Updated 06/08/21 @ 17:01 by Trena Abdalla NP-Suzanna) Smoking Status: Former smoker Tobacco: How many years used: 25 how long ago did patient quit smokin, 0.5ppd second hand exposure: Yes alcohol intake: former year quit: 2020 substance use type: marijuana ROS Review of Systems ROS Unobtainable: due to mental status Vital Signs Vital Signs Vital Signs: 06/08/21 15:04 06/08/21 15:20 06/08/21 16:09 Temperature 98 F Temperature Source Temporal Pulse Rate 87 78 Respiratory Rate 16 16 Blood Pressure 137/109 H 110/89 H Blood Pressure Mean 118 96 Pulse Ox 93 93 98 Oxygen Delivery Method Room Air Room Air Nasal Cannula Oxygen Flow Rate (L/min) 2 Weight Weight: 200 lb 14.792 oz Body Mass Index (BMI) 31.4 Physical Exam Const alert General Appearance: anxious Orientation / Consciousness: confused HEENT normocephalic and head/scalp atraumatic Eyes conjunctivae normal and no scleral icterus Neck supple General: trachea midline Resp normal respiratory effort, normal air movement and clear to auscultation bilaterally Effort and Inspection: tachypneic Cardio regular rate, regular rhythm, S1 normal heart sound, S2 normal heart sound and peripheral pulses 2+ throughout GI normal to inspection, nondistended, normoactive bowel sounds, soft to palpation and non-tender Extremity normal capillary refill and no clubbing, cyanosis or edema General Extremity: no tenderness to palpation of joints or extremities Skin General Skin Exam: no breakdown and turgor normal Lesions: no lesions Rashes: no rashes Neuro moves all extremities, no focal motor deficits and no sensory deficits noted Sensorium / Orientation: confused Speech: expressive aphasia Psych Attitude: bizarre Activity / Motor Behavior: fidgetting and restless Speech: delayed Thought Process: disorganized and confused Results Lab / Micro Data Result Diagrams: 06/08/21 15:15 06/08/21 15:15 Labs: Laboratory Results - last 24 hr 06/08/21 15:15: WBC 3.4 L, RBC 4.57, Hgb 12.6, Hct 39.9, MCV 87.3, MCH 27.6, MCHC 31.6 L, RDW Std Deviation 44.0 H, RDW Coeff of Jaun 13.8, Plt Count 151, MPV 10.1, Immature Gran % (Auto) 0.300, Neut % (Auto) 75.5 H, Lymph % (Auto) 17.9 L, [place] % (Auto) 5.4, Eos % (Auto) 0.6, Baso % (Auto) 0.3, Absolute Neuts (auto) 2.5, Absolute Lymphs (auto) 0.60 L, Nucleated RBC % 0, Differential Comment SCANNED, Diff Path Review October06/08/21 15:15: PT 13.9, INR 1.1, APTT 31.0 06/08/21 15:15: Sodium 142, Potassium 3.5, Chloride 102, Carbon Dioxide 32.0, Anion Gap 8, BUN 11, Creatinine 1.12 H, Estim Creat Clear Calc 52.59, Est GFR (MDRD) Af Amer 64, Est GFR (MDRD) Non-Af 53 L, BUN/Creatinine Ratio 9.8 L, Glucose 132 H, Calcium 9.4, Troponin I High Sens 10 06/08/21 15:25: Ethyl Alcohol < 3.[address] 06/08/21 15:11 IMPRESSION: Normal unenhanced CT scan of the brain. N.B. : The above Results were Read Back by Kamran Velazquez MD to Eliazar Chavarria and understanding confirmed on 06/08/2021 15:29:20 (ET). Electronically Signed: Kamran Velazquez MD at 15:30 EST , Service support , ADDENDUM: 06/08/21 1537 IMPRESSION: Normal unenhanced CT scan of the brain. N.B. : The above Results were Read Back by Kamran Velazquez MD to Eliazar Chavarria and understanding confirmed on 06/08/2021 15:29:20 (ET). Electronically Signed: Kamran Velazquez MD at 15:30 EST , Service support , Head/Neck CTA 06/08/21 15:11 IMPRESSION: 50-60% stenosis of the right internal carotid artery due to calcific plaque. N.B. : The above Results were Read Back by Kamran Velazquez MD to Eliazar Chavarria and understanding confirmed on 06/08/2021 15:39:39 (ET). Electronically Signed: Kamran Velazquez MD at 15:41 EST , Service support , ADDENDUM: 06/08/21 1548 IMPRESSION: 50-60% stenosis of the right internal carotid artery due to calcific plaque. N.B. : The above Results were Read Back by Kamran Velazquez MD to Eliazar Chavarria and understanding confirmed on 06/08/2021 15:39:39 (ET). Electronically Signed: Kamran Velazquez MD at 15:41 EST , Service support , Chest X-Ray 06/08/21 15:48 IMPRESSION: There is bilateral infiltrate. Question left pleural effusion Electronically Signed: Jose Miguel Esparza MD at 16:34 EST , Service support , Assessment & Plan Assessment/Plan (1) Global aphasia: (2) Medical marijuana use: (3) Encephalopathy: PLAN: 1. Rule out stroke -Admit to PCU for cardiac monitoring and NIH stroke scale monitoring. -MRI and MRA ordered for a.m., CT negative for acute findings -PT, ST and OT to eval and treat -Will consult teleneurology following MRI -CBC, BMP, lipid profile, magnesium, phosphorus ordered for a.m. -Patient n.p.o. pending dysphagia screen completion. If patient passes dysp hagia screen okay to order patient cardiac diet -Vital signs per protocol -Troponin x1 ordered 2. Medical encephalopathy -Patient recently diagnosed with Warnicke's encephalopathy, confused at baseline however patient's sister states that she is normally not this confused and normally does not have any speech issues. -Likely secondary to inappropriate medication administration. Patient sister r eports that she has been handling her own medications but is unable to tell anyone event she took her medications and how much was taken. -Patient has medical marijuana card and recently obtained medical marijuana Gummies however her sister says that both bottles that she obtained on were empty at her home. -Will hold medications that may be contributing to metabolic encephalopathy including gabapentin, Seroquel, Ativan. -Will continue patient's buspirone and fluoxetine. -Will check UA to rule out urinary tract infection as a source of confusion DVT prophylaxis-SCDs This patient was seen by LUCA Dixon under the supervision of Dr. Santana. Documented by User: Dr. Blayne Santana, 06/08/21 17:40 HPI - General General Date of Admission: 06/08/21 [facility] Medical History (Updated 06/08/21 @ 17:06 by LUCA Dixon) Abdominal pain Abnormal liver CT Admitted to alcohol detoxification center Alcohol abuse Alcohol withdrawal Anemia Anxiety Arthritis Asthma Bronchiectasis Bronchitis Chronic renal failure Chronic renal insufficiency, stage I Colitis Colitis with rectal bleeding COPD (chronic obstructive pulmonary disease) Depression DVT (deep venous thrombosis) Endocarditis Essential (primary) hypertension Gastritis Gastroesophageal reflux disease History of diarrhea History of umbilical hernia HLD (hyperlipidemia) Idiopathic right ventricular dilation Leukopenia Migraine Morbid obesity GENNARO (obstructive sleep apnea) Osteoarthritis Pancytopenia Pneumonia Respiratory failure with hypoxia Respiratory insufficiency Respiratory tract infection due to COVID-19 virus Restrictive lung disease Right bundle branch block (RBBB) Right ventricular systolic dysfunction Sepsis Thrombocytopenia Home Medications albuterol sulfate 1 - 2 puff INHALATION Q4H PRN PRN 12/09/18 [History Last Taken Unknown] pantoprazole 40 mg PO DAILY 12/09/18 [History Last Taken 01/13/21] rosuvastatin 40 mg PO QHS 12/09/18 [History Last Taken 01/12/21] acetaminophen 650 mg PO Q6H PRN PRN tab 12/13/18 [Rx Last Taken Unknown] buspirone 10 mg tablet 10 mg PO BID tab 10/23/19 [History Last Taken 01/13/21] dicyclomine 10 mg capsule 10 mg PO TIDAC cap 10/23/19 [History Last Taken 01/13/21] fluoxetine 10 mg PO DAILY 01/14/21 [History Last Taken Unknown] benztropine 0.5 mg PO BID PRN PRN 03/08/21 [History Last Taken Unknown] quetiapine 200 mg PO QHS 03/08/21 [History Last Taken Unknown] folic acid 1 mg PO DAILY@0800 #0 tab 10/06/21 [Rx Last Taken Unknown] furosemide 20 mg PO DAILY PRN #0 tab 03/09/21 [Rx Last Taken Unknown] lorazepam [Ativan] 0.5 mg PO DAILY PRN #7 tab 03/09/21 [Rx Last Taken Unknown] potassium chloride 40 meq PO DAILY #0 tab 03/09/21 [Rx Last Taken 01/13/21] thiamine HCl (vitamin B1) [Vitamin B-1] 100 mg PO DAILYCM #0 tab 03/09/21 [Rx Last Taken Unknown] gabapentin 300 mg PO BID 06/08/21 [History Last Taken Unknown] magnesium oxide 400 mg PO DAILY 06/08/21 [History Last Taken Unknown] rivastigmine 4.6 mg TRANSDERMAL DAILY 06/08/21 [History Last Taken Unknown] Allergy/AdvReac Type Severity Reaction Status Date / Time Penicillins Allergy Hives Verified 06/08/21 15:22 DUST Allergy itchy eyes Uncoded 03/06/21 10:57 SEASONAL Allergy itchy eyes Uncoded 03/06/21 10:57 Family History Father Colon cancer Mother Cancer pancreatic Surgical History History of appendectomy History of cholecystectomy History of hysterectomy History of tubal ligation Social History (Updated 06/08/21 @ 17:01 by KEMI DixonC) Smoking Status: Former smoker Tobacco: How many years used: 25 how long ago did patient quit smokin, 0.5ppd second hand exposure: Yes alcohol intake: former year quit: 2020 substance use type: marijuana Results Lab / Micro Data Result Diagrams: 06/08/21 15:15 06/08/21 15:15 Assessment & Plan Assessment/Plan (1) Encephalopathy: PLAN: Patient seen and examined independently. Data and vitals reviewed. I agree with the above note by the nurse practitioner. 51-year-old female with a known history of Warnicke's encephalopathy presents with confusion and word finding difficulties. Patient does not have global aphasia. Patient lives with her sister but her sister has been exasperated with the patient and has stopped managing her medications the patient is been ma naging her own medications. Patient has been getting marijuana Gummies up in [place] and had 1 day where she just lost her whole day in [place] and then went up and drove her self again. Physical exam: Patient is awake and alert is confused not able to tell me where she is or what the date is but is able to follow commands. Cranial nerves II through XII grossly intact muscle strength is 5-5 in upper and lower extremities. Heart rate regular rate and rhythm plus S1-S2 the murmurs Or rubs. Lungs are clear to auscultation bilaterally. Assessment and plan 1. Encephalopathy This is likely multifactorial due to the patient's underlying Warnicke's dementia but also medications including gabapentin and lorazepam as well as her marijuana Gummies. Hold potentiating medications including Seroquel for now. Will events with additional neurologic testing but seems less likely that this is a stroke. Of note, patient does not have global aphasia. 2. Warnicke's encephalopathy I have advised the patient's sister that the patient not drive moving forward as she is a high risk for motor vehicle accidents. I did advise the patient follow-up with geriatrics office for a formal driving assessment. Charges/Coding Visit Charges Inpatient E&M: 88509 Init Hosp L3
--- NOTE | 2021-06-08 17:32 | ED.RN ---
pt pulled off nasal cannula, satting 85% ra. nasal cannula reapplied by this rn. pt now 98% on room air. pt re-educated to keep oxygen on.
[2021-06-08 17:33] LABS: Amphetamine Urine VISTA NEGATIVE (<1000 ng/mL); Barbiturate Urine VISTA NEGATIVE (< 200 ng/mL); Benzodiazepine Urine VISTA NEGATIVE (< 200 ng/mL); Cocaine Urine VISTA NEGATIVE (< 300 ng/mL); Ecstacy Urine VISTA POSITIVE (< 500 ng/mL); Methadone Urine VISTA NEGATIVE (< 300 ng/mL); PCP Urine VISTA NEGATIVE (< 25 ng/mL); THC Urine VISTA POSITIVE (< 50 ng/mL); Vista UDS pH Range 6
[2021-06-08 18:46] LABS: Troponin-I HS 13 pg/mL (3.0-54.0)
[2021-06-08] MEDS: 0.9% Normal Saline 1,000 ML 100 ML IV (19:09)
[2021-06-08 19:16] LABS: Bacteria 0 SEEN /hpf (None Seen); Mucous, Urine 0 SEEN /hpf (<or=2+); Red Blood Cells-Urine 0 SEEN /hpf (0-5); Squamous Epithelial Cells - UA 0 SEEN /hpf (5-10); White Blood Cells 0 SEEN /hpf (0-5)
[2021-06-08 19:21] LABS: Color, Urine Yellow (Yellow); Glucose, Dipstick Normal (Normal); Ketone-Dipstick 5 mg/dl (Negative); Leukocyte Esterase-Dipstick Negative /ul (Negative); Nitrite-Dipstick Negative (Negative); Occult Blood-Urine 10 /ul (Negative); Protein-Dipstick 30 mg/dl (Negative); Urine Bilirubin Dipstick Negative (Negative); Urine Clarity Clear (Clear); Urine Urobilinogen 4 mg/dl (Normal)
[2021-06-08] MEDS: Atorvastatin Calcium 80 MG Tablet PO (20:18)
[2021-06-08] MEDS: busPIRone 5 MG Tablet 10 MG PO (20:21)
[2021-06-09] VITALS (12 sets, daily range): BP systolic 117–150; BP diastolic 72–89; PULSE 63–83; RESP 16–18; TEMP 36.2–37.3; O2SAT 96–98
[2021-06-09] MEDS: 0.9% Normal Saline 1,000 ML 100 ML IV ×2 (05:41→21:54)
[2021-06-09] MEDS: Ondansetron 4 MG/2 ML Vial IV (06:56)
[2021-06-09 07:33] LABS: Absolute Lymphocyte Count 0.41 X10^3/uL (0.83-4.51); Absolute Neutrophil Count 1.7 X10^3/uL (2.0-7.7); Basophil# 0.02 X10^3/uL; Basophil% 0.9 % (0-1); Eosinophil# 0.02 X10^3/uL; Eosinophils% 0.9 % (0-5); Hemoglobin 11.2 g/dL (12.0-15.0); Lymphocyte # 0.41 X10^3/ul (0.83-4.51); Lymphocyte % 17.5 % (19-41); Mean Corpuscular Hgb 27.5 pg (27.0-32.0); Mean Corpuscular Volume 85.8 fL (81-99); Mean Platelet Vol. 9.6 fl (6.2-12.0); Monocyte# 0.16 X10^3/uL; Monocyte% 6.8 % (0-10); NRBC Flagged by Analyzer 0 % (0-5); Neutrophil # 1.72 X10^3/uL (2.7-7.7); Neutrophil % 73.5 % (47-70); POSITIVE DIFFERENTIAL YES; Platelet Count 125 K/mm3 (150-450); RBC Distribution Width CV 13.9 % (11.6-14.6); Red Blood Count 4.08 M/mm3 (4.2-5.4); White Blood Count 2.3 K/mm3 (4.4-11.0)
[2021-06-09 07:34] LABS: Differential Indicated SCAN CRITERIA MET
[2021-06-09 08:09] LABS: Anion Gap 8 (5-15); BUN 9 mg/dL (7-18); Calcium,Total 8.5 mg/dL (8.5-10.1); Chloride 105 mmol/L (98-107); Cholesterol 150 mg/dL (200); EST Glomerular Filtration Rate 68 mL/min (>60); Est Glom Filt Rate - Afr Amer 83 mL/min (>60); Estimated Creatinine Clearance 67.89 ml/min; Glucose 118 mg/dL (74-106); High Density Lipoprotein 67 mg/dL; Magnesium 1.8 mg/dL (1.6-2.6); Phosphorus 2.7 mg/dL (2.5-4.9); Potassium 3.2 mmol/L (3.5-5.1); Sodium Level 141 mmol/L (136-145); Triglycerides 126 mg/dL; Very Low Density Lipoprotein 25 mg/dL (5-40)
--- NOTE | 2021-06-09 08:10 | PCS.PANDOC ---
PANDEMIC DOCUMENTATION INITIATED: Date: 01/17/2021 Time: 190
[2021-06-09 08:59] LABS: Differential Comment SCANNED
[2021-06-09] MEDS: busPIRone 5 MG Tablet 10 MG PO ×2 (09:01→19:55)
[2021-06-09] MEDS: Magnesium Chloride 64 MG Delay Rel.Tablet 128 MG PO (09:01)
[2021-06-09] MEDS: Folic Acid 1 MG Tablet PO (09:01)
[2021-06-09] MEDS: FLUoxetine 10 MG Capsule PO (09:01)
[2021-06-09] MEDS: Pantoprazole Sodium 40 MG Tablet PO (09:01)
[2021-06-09] MEDS: Thiamine Hydrochloride 100 MG Tablet PO (09:01)
[2021-06-09] MEDS: Potassium Chloride Oral Tablet 20 MEQ 40 MEQ PO (09:01)
[2021-06-09] MEDS: 0.9% Saline Lock 10 ML Syringe IV (09:59)
[2021-06-09] MEDS: LORazepam 2 MG/ML Syringe 1 MG IV (09:59)
--- NOTE | 2021-06-09 10:40 | NURSING ---
PER MIYA ZUNIGA, MAY GIVE INFORMATION TO DAUGHTER, THEODORE, AND PT SISTER, CR.
--- NOTE | 2021-06-09 12:46 | PCM.PN.HOSP ---
Documented by User: Antonio ADEN 06/09/21 12:55 Subjective Subjective Patient is a 60-year-old female lying in bed, patient is not alert and oriented. Patient responds to her name being called, however is unable to verbalize her own name and is unaware of current time. Patient cannot provide much insight to her current condition due to acute confusion. Objective Data Objective Data Vital Signs: Vital Signs Temp Pulse Resp BP Pulse Ox 98.1 F 83 16 146/88 H 97 06/09/21 08:43 06/09/21 11:00 06/09/21 08:43 06/09/21 08:43 06/09/21 10:21 Oxygen Flow Rate (L/min) 2 Oxygen Delivery Method Nasal Cannula Weight: 242 lb 8.136 oz Body Mass Index (BMI) 36.8 Intake & Output: Intake and Output for Last 24 Hours 06/07/21 06/08/21 06/09/21 23:59 23:59 23:59 Intake Total 500 / 500 1000 / 1000 Balance 500 / 500 1000 / 1000 Lab / Micro Data Result Diagrams: 06/09/21 07:14 06/10/21 06:33 Labs: Laboratory Results - last 24 hr 06/08/21 15:15: WBC 3.4 L, RBC 4.57, Hgb 12.6, Hct 39.9, MCV 87.3, MCH 27.6, MCHC 31.6 L, RDW Std Deviation 44.0 H, RDW Coeff of Jaun 13.8, Plt Count 151, MPV 10.1, Immature Gran % (Auto) 0.300, Neut % (Auto) 75.5 H, Lymph % (Auto) 17.9 L, [place] % (Auto) 5.4, Eos % (Auto) 0.6, Baso % (Auto) 0.3, Absolute Neuts (auto) 2.5, Absolute Lymphs (auto) 0.60 L, Nucleated RBC % 0, Differential Comment SCANNED, Diff Path Review October06/08/21 15:15: PT 13.9, INR 1.1, APTT 31.0 06/08/21 15:15: Sodium 142, Potassium 3.5, Chloride 102, Carbon Dioxide 32.0, Anion Gap 8, BUN 11, Creatinine 1.12 H, Estim Creat Clear Calc 52.59, Est GFR (MDRD) Af Amer 64, Est GFR (MDRD) Non-Af 53 L, BUN/Creatinine Ratio 9.8 L, Glucose 132 H, Calcium 9.4, Troponin I High Sens 10 06/08/21 15:25: Ethyl Alcohol < 3.0 06/08/21 16:55: Urine Opiates Screen NEGATIVE, Urine Methadone Screen NEGATIVE, Ur Barbiturates Screen NEGATIVE, Ur Phencyclidine Scrn NEGATIVE, Ur Amphetamines Screen NEGATIVE, U Methamphetamin-MDMA POSITIVE H, U Benzodiazepines Scrn NEGATIVE, Urine Cocaine Screen NEGATIVE, U Cannabinoids Screen POSITIVE H, Ur Drug Screen Comment 06/08/21 16:55: Urine Color Yellow, Urine Clarity Clear, Urine pH 7.0, Ur Specific [place] 1.010, Urine Protein 30 H, Urine Glucose (UA) Normal, Urine Ketones 5 H, Urine Occult Blood 10 H, Urine Nitrite Negative, Urine Bilirubin Negative, Urine Urobilinogen 4 H, Ur Leukocyte Esterase Negative, Urine RBC 0 SEEN, Urine WBC 0 SEEN, Ur Squamous Epith Cells 0 SEEN, Urine Bacteria 0 SEEN, Urine Mucus 0 SEEN 06/08/21 18:12: Troponin I High Sens 13 06/09/21 07:14: WBC 2.3 L, RBC 4.08 L, Hgb 11.2 L, Hct 35.0 L, MCV 85.8, MCH 27.5, MCHC 32.0, RDW Std Deviation 43.0, RDW Coeff of Jaun 13.9, Plt Count 125 L, MPV 9.6, Immature Gran % (Auto) 0.400, Neut % (Auto) 73.5 H, Lymph % (Auto) 17.5 L, [place] % (Auto) 6.8, Eos % (Auto) 0.9, Baso % (Auto) 0.9, Absolute Neuts (auto) 1.7 L, Absolute Lymphs (auto) 0.41 L, Nucleated RBC % 0, Differential Comment SCANNED, Diff Path Review October06/09/21 07:14: Sodium 141, Potassium 3.2 L, Chloride 105, Carbon Dioxide 28.0, Anion Gap 8, BUN 9, Creatinine 0.90, Estim Creat Clear Calc 67.89, Est GFR (MDRD) Af Amer 83, Est GFR (MDRD) Non-Af 68, BUN/Creatinine Ratio 10.0, Glucose 118 H, Calcium 8.5, Phosphorus 2.7, Magnesium 1.8, Triglycerides 126, Cholesterol 150, LDL Cholesterol 58, VLDL Cholesterol 25, HDL Cholesterol 67 Radiography Diagnostic Testing: Radiology Impression Brain CT 06/08/21 15:11 IMPRESSION: Normal unenhanced CT scan of the brain. N.B. : The above Results were Read Back by Kamran Velazquez MD to Eliazar Chavarria and understanding confirmed on 06/08/2021 15:29:20 (ET). Electronically Signed: Kamran Velazquez MD at 15:30 EST , Service support , ADDENDUM: 06/08/21 1537 IMPRESSION: Normal unenhanced CT scan of the brain. N.B. : The above Results were Read Back by Kamran Velazquez MD to Eliazar Chavarria and understanding confirmed on 06/08/2021 15:29:20 (ET). Electronically Signed: Kamran Velazquez MD at 15:30 EST , Service support , Head/Neck CTA 06/08/21 15:11 IMPRESSION: 50-60% stenosis of the right internal carotid artery due to calcific plaque. N.B. : The above Results were Read Back by Kamran Velazquez MD to Eliazar Chavarria and understanding confirmed on 06/08/2021 15:39:39 (ET). Electronically Signed: Kamran Velazquez MD at 15:41 EST , Service support , ADDENDUM: 06/08/21 1548 IMPRESSION: 50-60% stenosis of the right internal carotid artery due to calcific plaque. N.B. : The above Results were Read Back by Kamran Velazquez MD to Eliazar Chavarria and understanding confirmed on 06/08/2021 15:39:39 (ET). Electronically Signed: Kamran Velazquez MD at 15:41 EST , Service support , Chest X-Ray 06/08/21 15:48 IMPRESSION: There is bilateral infiltrate. Question left pleural effusion Electronically Signed: Jose Miguel Esparza MD at 16:34 EST , Service support , Physical Exam Const alert Orientation / Consciousness: confused and disoriented HEENT head/scalp atraumatic and moist oral mucous membranes Head and Scalp: normocephalic Eyes PERRL, EOMs intact bilaterally and conjunctivae normal Neck no lymphadenopathy, supple and no JVD Resp normal respiratory effort, no retractions, no use of accessory muscles and clear to auscultation bilaterally Cardio regular rate, regular rhythm, no murmurs and no JVD GI normal to inspection, nondistended, normoactive bowel sounds, soft to palpation and non-tender Extremity normal to inspection, full ROM and no clubbing, cyanosis or edema Skin no rashes or lesions noted, no wounds and skin turgor normal Neuro Neuro Narrative: Unable to assess due to patient confusion. Psych Psych Narrative: Unable to assess due to patient confusion. Assessment & Plan Assessment/Plan (1) Encephalopathy: (2) Medical marijuana use: PLAN: Day 1 Discharge planning: To be determined. 1) stroke rule out Brain CT negative on admission was unremarkable. MRI/MRA ordered/pending. PT/OT eval ordered. Case management consult ordered. 2) multifactorial encephalopathy Acutely confused on examination. Patient was recently admitted to the hospital in May for Warneke's encephalopathy, however patient is also on several medications that may alter mentation to include medical marijuana Gummies, gabapentin and lorazepam. On admission, patient's family admitted that patient may have inappropriately taken her home medications. Sedating medications held. Continue thiamine and folic acid supplementation. DVT prophylaxis - SCDs Patient seen by Antonio Giron PA-C, under the supervision of Dr. Sultana. Time spent on patient care 8 minutes. Documented by User: Dr. Thong Sultana MD 06/10/21 17:04 Objective Data Lab / Micro Data Result Diagrams: 06/09/21 07:14 06/10/21 06:33 Charges/Coding Addendum Addendum: Dr. Sultana: I personally reviewed the chart and examined the patient, and agree with the above findings. [id number] female with a history of alcoholism presents to the hospital with confusion concerning for possible stroke. She was recently diagnosed after similar episode at outside hospital with Warnicke's encephalopathy. My evaluation today she is unable to provide any history Per review of the medical chart, it does appear that she is on quite a few different medications that could affect her mental status including gabapentin, Seroquel, lorazepam and she also apparently has medical marijuana Gummies. Per report patient has been managing her own medications at home so it is possible that she had an accidental overdose. We will continue to monitor and provide support, she was unable to get an MRI today therefore we will consult [facility] neurology and see if they have any further recommendations. Clinical care time 20 minutes Visit Charges Inpatient E&M: 07175 Subs Hosp L2
--- NOTE | 2021-06-09 13:03 | TELEMED_ITS ---
[facility] has confirmed receipt of a request for visit. This document confirms receipt of the order initiating the consult. To find the results of the consultation, please view the patient's reports for the scanned Telemed Consult.
[2021-06-09] MEDS: Atorvastatin Calcium 80 MG Tablet PO (19:55)
[2021-06-09] MEDS: Ibuprofen 400 MG Tablet PO (21:51)
[2021-06-10] VITALS (11 sets, daily range): BP systolic 129–157; BP diastolic 54–94; PULSE 69–80; RESP 12–18; TEMP 36.5–36.9; O2SAT 92–100
[2021-06-10] MEDS: Ondansetron 4 MG/2 ML Vial IV (05:54)
[2021-06-10] MEDS: 0.9% Normal Saline 1,000 ML 100 ML IV ×2 (05:54→16:34)
[2021-06-10 07:18] LABS: Anion Gap 4 (5-15); BUN 7 mg/dL (7-18); BUN/Creat Ratio 7.8 RATIO (10-20); Calcium,Total 9.1 mg/dL (8.5-10.1); Chloride 109 mmol/L (98-107); EST Glomerular Filtration Rate 68 mL/min (>60); Est Glom Filt Rate - Afr Amer 82 mL/min (>60); Estimated Creatinine Clearance 67.89 ml/min; Glucose 121 mg/dL (74-106); Potassium 3.5 mmol/L (3.5-5.1); Sodium Level 140 mmol/L (136-145)
[2021-06-10] MEDS: Magnesium Chloride 64 MG Delay Rel.Tablet 128 MG PO (09:00)
[2021-06-10] MEDS: FLUoxetine 10 MG Capsule PO (09:00)
[2021-06-10] MEDS: Potassium Chloride Oral Tablet 20 MEQ 40 MEQ PO (09:00)
[2021-06-10] MEDS: busPIRone 5 MG Tablet 10 MG PO ×2 (09:01→22:45)
[2021-06-10] MEDS: Pantoprazole Sodium 40 MG Tablet PO (09:01)
[2021-06-10] MEDS: Folic Acid 1 MG Tablet PO (09:01)
[2021-06-10] MEDS: Ibuprofen 400 MG Tablet PO ×2 (09:05→16:35)
[2021-06-10 10:00] LABS: Pathologist Review Reviewed
[2021-06-10 10:12] LABS: Pathologist Review Reviewed
--- NOTE | 2021-06-10 10:15 | NURSING ---
PER MUNDO,RN, PT PULLED IV OUT AND NEEDED REEDUCATED ON WHY IV IS NEEDED. WILL CONTINUE TO MONITOR.
[2021-06-10 11:16] LABS: AST(SGOT) 20 U/L (15-37); Alanine Aminotransfer ALT/SGPT 18 U/L (13-56); Alkaline Phosphatase 93 U/L (45-117); Bilirubin, Direct 0.21 mg/dL (0.00-0.30); Globulin 2.8 g/dL (2.2-4.2); Protein, Total 5.8 g/dL (6.4-8.2)
--- NOTE | 2021-06-10 11:19 | CASEMGMT ---
Addendum entered by Jina Mao 06/10/21 12:59: TCU cannot take patient. Jina Mao DOUGHNUT ICER MACHINE OPERATIONS TRAINER Original Note: SW called patient's daughter Cheryl per her request. Seth, patient's whom she is from is patient's POA. Seth told the RN that it is okay for [facility] to talk with Laura and Cheryl. Cheryl is frustrated with patient. Per Cheryl patient is not okay to live at home alone. Her memory comes and goes. Cheryl would prefer patient go to a longterm. DALLAS explained that if the physician feels patient is able to make her own decisions we cannot make her go anywhere unfortunately. However, if the physician does not feel she can make her decisions then Seth would be the decision maker. Cheryl said she understands and her dad (Seth) is on board with whatever Cheryl feels is best. SW went over the 3 facilities that take patient's insurance, [facility], [facility], and [facility]. DALLAS explained that if patient is going to need prison and she goes to [facility] or [facility] she would have to transition to another longterm. Cheryl is not sure about [facility]. Cheryl would like TCU and then she can work on figuring out where her mom will go from there. Patient does have [employer] Medicaid so she would have more choices when leaving TCU. DALLAS told her SW will talk with patient and check with [facility]. SW met with patient. Introduced self and role at [facility]. Patient said her hand hurts. She has an IV and gauze wrapped around it. SW told her SW will let her nurse know. SW quickly stepped out and told RN. SW then went back to the room and told patient, Your nurse is aware. Patient asked, Aware of what? SW told her nurse is aware her hand hurts. SW then spoke with patient about the last several months to year. Patient agrees she has had a tough time. Patient confirmed her memory comes and goes. SW told patient that right now it is being recommended she go to a detention facility for physical rehab. At first patient said she isn't going to a longterm. SW went over the 3 facilities that take her insurance. Patient does not want to go to [facility]. Patient was agreeable to [facility]. SW called [facility] and made a referral. Await response. Jina ROGEL
--- NOTE | 2021-06-10 14:12 | PN.HOSP_ITS ---
Documented by User: Antonio ADEN 06/10/21 14:26 Subjective Subjective Patient is a 60-year-old female comfortably resting in bed, alert and oriented x3. Patient mentation significantly improved from yesterday, although still needs prompting for certain questions. Shows emotional distress about her conf usion and overall health status. Denies development of any new symptoms overnight. Does not appear in acute distress. Objective Data Objective Data Vital Signs: Vital Signs Temp Pulse Resp BP Pulse Ox 98.5 F 69 16 153/94 H 98 06/10/21 14:00 06/10/21 14:00 06/10/21 14:00 06/10/21 14:00 06/10/21 14:00 Oxygen Flow Rate (L/min) 2 Oxygen Delivery Method Nasal Cannula Weight: 242 lb 8.136 oz Body Mass Index (BMI) 36.8 Intake & Output: Intake and Output for Last 24 Hours 06/08/21 06/09/21 06/10/21 23:59 23:59 23:59 Intake Total 500 / 500 2054 1095.00 / 1095.00 Balance 500 / 500 2054 1095.00 / 1095.00 Lab / Micro Data Result Diagrams: 06/09/21 07:14 06/10/21 06:33 Labs: Laboratory Results - last 24 hr 06/08/21 15:15: Diff Path Review Reviewed 06/09/21 07:14: Diff Path Review Reviewed 06/10/21 06:33: Sodium 140, Potassium 3.5, Chloride 109 H, Carbon Dioxide 27.0, Anion Gap 4 L, BUN 7, Creatinine 0.90, Estim Creat Clear Calc 67.89, Est GFR (MDRD) Af Amer 82, Est GFR (MDRD) Non-Af 68, BUN/Creatinine Ratio 7.8 L, Glucose 121 H, Calcium 9.1 06/10/21 06:33: Total Bilirubin 1.00, Direct Bilirubin 0.21, AST 20, ALT 18, Alkaline Phosphatase 93, Total Protein 5.8 L, Albumin 3.0 L, Globulin 2.8 06/10/21 10:50: Ammonia 13.0 Physical Exam Const alert, oriented x3 and no apparent distress HEENT head/scalp atraumatic and moist oral mucous membranes Head and Scalp: normocephalic Eyes PERRL, EOMs intact bilaterally and conjunctivae normal Neck no lymphadenopathy, supple and no JVD Resp normal respiratory effort, no retractions, no use of accessory muscles and clear to auscultation bilaterally Cardio regular rate, regular rhythm, no murmurs and no JVD GI normal to inspection, nondistended, normoactive bowel sounds, soft to palpation and non-tender Extremity normal to inspection, full ROM and no clubbing, cyanosis or edema Peripheral Pulses: Yes pulses 2+ throughout Skin no rashes or lesions noted, no wounds, skin turgor normal and no jaundice Neuro CN's II-XII intact bilaterally Psych affect normal Assessment & Plan Assessment/Plan (1) Encephalopathy: (2) Medical marijuana use: PLAN: Day 2 Discharge planning: Discharge to TCU pending acceptance and [facility]. Case management has been in contact with family, who would like patient to be placed as they no longer feel that they can take care of her. 1) multifactorial encephalopathy MRI/MRA not able to be completed due to patient agitation. Brain CT negative on admission was unremarkable. SOC consult obtained and recommendations are as follows: Do not believe patient is having a stroke, believes patient presentation is possibly due to relapse of Warnicke encephalopathy as well as other causes, increase thiamine to 500 mg 3 times daily for 2 to 3 days, then taper to 250 mg for another 2 to 3 days, obtain EEG. EEG obtained and revealed mild generalized background slowing, consistent with toxic/metabolic abnormalities in addition to other. No seizures or epileptiform changes were noted. We will continue IV thiamine at 500 mg, then taper, discharge plan as above. 2) stroke rule out Ruled out as above. 3) depression/anxiety Continue BuSpar and Prozac. 4) hyperlipidemia Continue Lipitor. 5) GERD Continue Protonix. DVT prophylaxis - SCDs Patient seen by Antonio Giron PA-C, under the supervision of Dr. Sultana. Time spent on patient care 7 minutes. Documented by User: Dr. Thong Sultana MD 06/10/21 17:07 Objective Data Lab / Micro Data Result Diagrams: 06/09/21 07:14 06/10/21 06:33 Charges/Coding Addendum Addendum: Dr. Sultana: I personally reviewed the chart and examined the patient, and agree with the above findings. Aia-htot-guo female with a history of alcoholism presents to the hospital with confusion concerning for possible stroke. She was recently diagnosed after similar episode at outside hospital with Warnicke's encephalopathy. My evaluation today she is unable to provide any history Per review of the medical chart, it does appear that she is on quite a few different medications that could affect her mental status including gabapentin, Seroquel, lorazepam and she also apparently has medical marijuana Gummies. Per report anurag taylor has been managing her own medications at home so it is possible that she had an accidental overdose. We will continue to monitor and provide support, she was unable to get an MRI today therefore we will consult SOC neurology and see if they have any further recommendations. Clinical care time 20 minutes 06/10/2021: She her encephalopathy has resolved, she is alert and oriented to my questioning. She is unsure as to why she is here she knows that she was confused but she does not know why. She denies any significant shortness of breath, chest pain, or abdominal pain. We will obtain liver function panel as well as pneumonia. We will continue with thiamine and SOC has recommended an EEG. We will have PT/OT evaluate her for disposition. And we will continue to hold her sedating medications, continue with her thiamine. Clinical care time 18 minutes Visit Charges Inpatient E&M: 94750 Subs Hosp L2
--- NOTE | 2021-06-10 15:36 | CASEMGMT ---
D[place]AS called patient's daughter Cheryl and updated her that the 3 facilities that take patient's insurance are unable to accept her. DALLAS told Cheryl patient can go to a snf on her [employer], she would just not get as much therapy. SW went [facility] the facilities [facility] Cheryl's choices are [facility], [facility], and [facility] as a last option. DALLAS told Cheryl SW will make referrals and see if anyone can take patient. Cheryl was upset and frustrated. She feels it is so hard to get help with patient. SW listened and provided emotional support. DALLAS called [facility] and made referral as well as faxed information. D[place]AS also called [facility] regarding referral and faxed it. Jina Mao COMMUNICATION COORDINATOR PEBBLES
[2021-06-10] MEDS: Acetaminophen 325 MG Tablet 650 MG PO (16:35)
[2021-06-10] MEDS: Atorvastatin Calcium 80 MG Tablet PO (22:45)
[2021-06-10] MEDS: MELATONIN 3 MG TABLET PO (22:45)
[2021-06-11] VITALS (8 sets, daily range): BP systolic 112–155; BP diastolic 78–103; PULSE 64–77; RESP 16–18; TEMP 36.6–36.9; O2SAT 98–100
[2021-06-11] MEDS: 0.9% Normal Saline 1,000 ML 100 ML IV (01:57)
[2021-06-11] MEDS: hydrOXYzine 10 MG Tablet PO (06:24)
[2021-06-11] MEDS: LORazepam 2 MG/ML Syringe 0.5 MG IV (09:01)
[2021-06-11] MEDS: Acetaminophen 325 MG Tablet 650 MG PO ×3 (09:01→21:58)
[2021-06-11] MEDS: Ibuprofen 400 MG Tablet PO ×3 (09:01→21:58)
[2021-06-11] MEDS: Potassium Chloride Oral Tablet 20 MEQ 40 MEQ PO (09:03)
[2021-06-11] MEDS: Pantoprazole Sodium 40 MG Tablet PO (09:03)
[2021-06-11] MEDS: busPIRone 5 MG Tablet 10 MG PO ×2 (09:04→21:57)
[2021-06-11] MEDS: Folic Acid 1 MG Tablet PO (09:04)
[2021-06-11] MEDS: Magnesium Chloride 64 MG Delay Rel.Tablet 128 MG PO (09:04)
[2021-06-11] MEDS: FLUoxetine 10 MG Capsule PO (09:04)
--- NOTE | 2021-06-11 12:03 | PCM.PN.HOSP ---
Documented by User: Antonio ADEN 06/11/21 12:09 Subjective Subjective Patient is a 60-year-old female lying in bed, alert and orient x3. Patient mentation seems stable/improved from yesterday and patient denies development of any new complaints overnight. Does not appear in acute distress. Objective Data Objective Data Vital Signs: Vital Signs Temp Pulse Resp BP Pulse Ox 97.9 F 75 16 142/92 H 100 06/11/21 09:00 06/11/21 09:00 06/11/21 09:00 06/11/21 09:00 06/11/21 09:00 Oxygen Flow Rate (L/min) 2 Oxygen Delivery Method Nasal Cannula Weight: 242 lb 8.136 oz Body Mass Index (BMI) 36.8 Intake & Output: Intake and Output for Last 24 Hours 06/09/21 06/10/21 06/11/21 23:59 23:59 23:59 Intake Total 2054 2335.00 / 2335.00 2420.00 / 2420.00 Balance 2054 2335.00 / 2335.00 2420.00 / 2420.00 Lab / Micro Data Result Diagrams: 06/09/21 07:14 06/10/21 06:33 Physical Exam Const alert, oriented x3 and no apparent distress HEENT head/scalp atraumatic and moist oral mucous membranes Head and Scalp: normocephalic Eyes PERRL, EOMs intact bilaterally and conjunctivae normal Neck no lymphadenopathy, supple and no JVD Resp normal respiratory effort, no retractions, no use of accessory muscles and clear to auscultation bilaterally Cardio regular rate, regular rhythm, no murmurs and no JVD GI normal to inspection, nondistended, normoactive bowel sounds, soft to palpation and non-tender Extremity normal to inspection, full ROM and no clubbing, cyanosis or edema Skin no rashes or lesions noted, no wounds, skin turgor normal and no jaundice Neuro CN's II-XII intact bilaterally Psych affect normal Assessment & Plan Assessment/Plan (1) Encephalopathy: (2) Medical marijuana use: PLAN: Day 3 Discharge planning: Discharge to [facility] pending acceptance. / following. 1) multifactorial encephalopathy MRI/MRA not able to be completed due to patient agitation. Brain CT negative on admission was unremarkable. SOC consult obtained and recommendations are as follows: Do not believe patient is having a stroke, believes patient presentation is possibly due to relapse of Warnicke encephalopathy as well as other causes, increase thiamine to 500 mg 3 times daily for 2 to 3 days, then taper to 250 mg for another 2 to 3 days, obtain EEG. EEG obtained and revealed mild generalized background slowing, consistent with toxic/metabolic abnormalities in addition to other. No seizures or epileptiform changes were noted. Decrease IV thiamine to 250 for 3-day course, discharge plan as above. 2) stroke rule out Ruled out as above. 3) depression/anxiety Continue BuSpar and Prozac. 4) hyperlipidemia Continue Lipitor. 5) GERD Continue Protonix. DVT prophylaxis - SCDs Patient seen by Antonio Giron PA-C, under the supervision of Dr. Sultana. Time spent on patient care 7 minutes. Documented by User: Dr. Thong Sultana MD 06/11/21 17:26 Objective Data Lab / Micro Data Result Diagrams: 06/09/21 07:14 06/10/21 06:33 Charges/Coding Addendum Addendum: Dr. Sultana: I personally reviewed the chart and examined the patient, and agree with the above findings. Bav-walg-ylw female with a history of alcoholism presents to the hospital with confusion concerning for possible stroke. She was recently diagnosed after similar episode at outside hospital with Warnicke's encephalopathy. My evaluation today she is unable to provide any history Per review of the medical chart, it does appear that she is on quite a few different medications that could affect her mental status including gabapentin, Seroquel, lorazepam and she also apparently has medical marijuana Gummies. Per report patient has been managing her own medications at home so it is possible that she had an accidental overdose. We will continue to monitor and provide support, she was unable to get an MRI today therefore we will consult SOC neurology and see if they have any further recommendations. Clinical care time 20 minutes 06/10/2021: She her encephalopathy has resolved, she is alert and oriented to my questioning. She is unsure as to why she is here she knows that she was confused but she does not know why. She denies any significant shortness of breath, chest pain, or abdominal pain. We will obtain liver function panel as well as pneumonia. We will continue with thiamine and SOC has recommended an EEG. We will have PT/OT evaluate her for disposition. And we will continue to hold her sedating medications, continue with her thiamine. Clinical care time 18 minutes 04/11/2022: Feels little better today, still undergoing PT/OT evaluation, family is concerned about her safety if she were to go home. EEG demonstrated mild generalized background slowing there are mild irregularities of cerebral function which may reflect toxic, metabolic, neurodegenerative, inflammatory, infectious or structural abnormalities however no seizures were noticed. Liver function tests were normal as was ammonia. A lot of this is consistent with a toxic encephalopathy that has resolved with holding her home medications, will continue to reinitiate on a trial basis and see how she tolerates it. Time spent: 18 minutes Visit Charges Inpatient E&M: 53702 Subs Hosp L2
--- NOTE | 2021-06-11 19:32 | CM.ED ---
SW Note SW checked [facility] SW's voice mail regarding patient. Ursula from [facility] called and left message that they were viewing patient on Sunday afternoon but it did not look like they would be able to accommodate patient and her needs at the [facility]. Malaika PARKS
[2021-06-11] MEDS: MELATONIN 3 MG TABLET PO (21:57)
[2021-06-11] MEDS: Atorvastatin Calcium 80 MG Tablet PO (21:57)
[2021-06-12 03:00] VITALS: BP 144/86; PULSE 73; RESP 16; TEMP 36.7; O2SAT 95
[2021-06-12] MEDS: Ibuprofen 400 MG Tablet PO ×2 (03:58→14:29)
[2021-06-12 06:34] VITALS: PULSE 65
[2021-06-12 07:00] VITALS: PULSE 74
--- NOTE | 2021-06-12 07:27 | NURSING ---
Patient is refusing to wear telemetry, will notify
[2021-06-12] MEDS: Acetaminophen 325 MG Tablet 650 MG PO (08:10)
[2021-06-12] MEDS: Pantoprazole Sodium 40 MG Tablet PO (08:11)
[2021-06-12] MEDS: Magnesium Chloride 64 MG Delay Rel.Tablet 128 MG PO (08:11)
[2021-06-12] MEDS: Potassium Chloride Oral Tablet 20 MEQ 40 MEQ PO (08:11)
[2021-06-12] MEDS: FLUoxetine 10 MG Capsule PO (08:12)
[2021-06-12] MEDS: Folic Acid 1 MG Tablet PO (08:13)
[2021-06-12] MEDS: busPIRone 5 MG Tablet 10 MG PO ×3 (08:14→20:48)
[2021-06-12] MEDS: hydrOXYzine PAM 25 MG Capsule 50 MG PO ×2 (08:17→14:29)
[2021-06-12] MEDS: 0.9% Saline Lock 10 ML Syringe IV (08:17)
[2021-06-12] MEDS: Ondansetron 4 MG/2 ML Vial IV (08:17)
[2021-06-12 09:00] VITALS: BP 145/98; PULSE 72; RESP 16; TEMP 36.7; O2SAT 97
--- NOTE | 2021-06-12 11:36 | PN.HOSP_ITS ---
Documented by User: Antonio ADNE 06/12/21 11:42 Subjective Subjective Patient is a 60-year-old female lying in bed, alert and orient x3. Patient seems stable from yesterday. Denies development of any new symptoms overnight. Does not appear in acute distress. Objective Data Objective Data Vital Signs: Vital Signs Temp Pulse Resp BP Pulse Ox 98.0 F 72 16 145/98 H 97 06/12/21 09:00 06/12/21 09:00 06/12/21 09:00 06/12/21 09:00 06/12/21 09:00 Oxygen Flow Rate (L/min) 2 Oxygen Delivery Method Nasal Cannula Weight: 242 lb 8.136 oz Body Mass Index (BMI) 36.8 Intake & Output: Intake and Output for Last 24 Hours 06/10/21 06/11/21 06/12/21 23:59 23:59 23:59 Intake Total 2335.00 / 2335.00 2780.00 / 2780.00 352.5 / 352.5 Balance 2335.00 / 2335.00 2780.00 / 2780.00 352.5 / 352.5 Lab / Micro Data Result Diagrams: 06/09/21 07:14 06/10/21 06:33 Physical Exam Const alert, oriented x3 and no apparent distress HEENT head/scalp atraumatic and moist oral mucous membranes Head and Scalp: normocephalic Eyes PERRL, EOMs intact bilaterally and conjunctivae normal Neck no lymphadenopathy, supple and no JVD Resp normal respiratory effort, no retractions, no use of accessory muscles and clear to auscultation bilaterally Cardio regular rate, regular rhythm, no murmurs and no JVD GI normal to inspection, nondistended, normoactive bowel sounds, soft to palpation and non-tender Extremity normal to inspection, full ROM and no clubbing, cyanosis or edema Skin no rashes or lesions noted, no wounds and skin turgor normal Neuro CN's II-XII intact bilaterally Psych affect normal Assessment & Plan Assessment/Plan (1) Encephalopathy: PLAN: Day 4 Discharge planning: Discharge to [facility] pending acceptance. CM/ following. 1) multifactorial encephalopathy MRI/MRA not able to be completed due to patient agitation. Brain CT negative on admission was unremarkable. SOC consult obtained and recommendations are as follows: Do not believe patient is having a stroke, believes patient presentation is possibly due to relapse of Warnicke encephalopathy complicated by non compliance with home medications, increase thiamine to 500 mg 3 times daily for 2 to 3 days, then taper to 250 mg for another 2 to 3 days, obtain EEG. EEG obtained and revealed mild generalized background slowing, consistent with toxic/metabolic abnormalities in addition to other. No seizures or epileptiform changes were noted. Continue IV thiamine at 250 mg start (day 2 of 3). Di scharge plan as above. 2) stroke rule out Ruled out as above. 3) depression/anxiety Continue BuSpar and Prozac. 4) hyperlipidemia Continue Lipitor. 5) GERD Continue Protonix. DVT prophylaxis - SCDs Patient seen by Antonio Giron PA-C, under the supervision of Dr. Vega. Time spent on patient care 7 minutes. Documented by User: Dr. Sanjay Vega, 06/12/21 16:27 Objective Data Lab / Micro Data Result Diagrams: 06/09/21 07:14 06/10/21 06:33 Charges/Coding Addendum Addendum: Patient was seen and examined today independently of Antonio Giron, she talk to me regarding restarting her Seroquel, according to nursing, patient has not been able to sleep at night. Patient told this examiner that she lives alone-in reality she lives with other family members. On examination she appeared older than her stated age, she does not appear to be in any distress. Vital signs as documented. Skin warm and dry and without overt rashes. Neck without JVD, thyroid appears normal, trachea is midline, neck is supple. Lungs clear, normal air movement was noted. Heart exam notable for regular rhythm, normal sounds and absence of murmurs, rubs or gallops. Abdomen unremarkable and without evidence of organomegaly, masses, or abdominal aortic enlargement, bowel sounds are present in all 4 quadrants, no abdominal tenderness was noted. Extremities nonedematous, no cyanosis was noted, no clubbing was noted. Neuro: Cranial nerves II through XII are grossly intact, no focal motor deficits were noted, sensation to light touch and pinprick is intact, motor exam 5/5 throughout. Psych: Patient is alert, she does not appear depressed or agitated. Impression #1 toxic encephalopathy on a backdrop of believe dementia-patient states that the reason why she was confused on admission is because she had been drinking at home. Due to her general debility, patient is awaiting placement in a long term facility for short-term rehab services #2 chronic anxiety and depression-continue Prozac and BuSpar, I have elected to restart her Seroquel at a lower dose-patient states she takes 200 mg at bedtime, I am reluctant to give her that big of a dose. She also takes trazodone at night which I have restarted also. #3 hyperlipidemia-patient is on Lipitor #4 history of alcohol abuse #5 chronic hypoxic respiratory failure-due to COPD-pulse ox will be monitored, patient is currently on 2 L #6 COPD-pulse ox will be monitored, patient is not on any aerosol treatments at this time, I do not believe that she needs these added to her regimen. #7 acute debility-secondary to suspected dementia with encephalopathy. Patient will need short-term placement to long term facility. I reviewed Antonio Giron's progress note including his medical assessment and plan of care and endorse it with the above additions. I have spent 20 minutes reviewing the patient's medical records, formulating a care plan, and doing a medical exam. Visit Charges Inpatient E&M: 11251 Subs Hosp L2
[2021-06-12 15:00] VITALS: BP 131/88; PULSE 92; RESP 16; TEMP 36.9; O2SAT 97
--- NOTE | 2021-06-12 15:51 | NURSING ---
Gave report to Vidhi MONTES on MS3
--- NOTE | 2021-06-12 16:42 | NURSING ---
this nurse is aware of Vital Signs taken at 1500 by Chayito Matos RN
[2021-06-12 20:46] VITALS: BP 157/97; PULSE 87; RESP 18; TEMP 36.8; O2SAT 96
[2021-06-12] MEDS: QUEtiapine 25 MG Tablet 50 MG PO (20:49)
[2021-06-12] MEDS: traZODone 100 MG Tablet PO (20:49)
[2021-06-12] MEDS: Atorvastatin Calcium 80 MG Tablet PO (20:49)
[2021-06-13] VITALS (7 sets, daily range): BP systolic 126–135; BP diastolic 74–97; PULSE 80–96; RESP 16–18; TEMP 36.8–37.2; O2SAT 94–98
[2021-06-13] MEDS: busPIRone 5 MG Tablet 10 MG PO ×3 (05:59→20:40)
[2021-06-13] MEDS: Magnesium Chloride 64 MG Delay Rel.Tablet 128 MG PO (09:52)
[2021-06-13] MEDS: FLUoxetine 10 MG Capsule PO (09:53)
[2021-06-13] MEDS: Pantoprazole Sodium 40 MG Tablet PO (09:53)
[2021-06-13] MEDS: Folic Acid 1 MG Tablet PO (09:53)
[2021-06-13] MEDS: Potassium Chloride Oral Tablet 20 MEQ 40 MEQ PO (09:53)
--- NOTE | 2021-06-13 10:06 | CASEMGMT ---
Addendum entered by Maggie Daley 06/13/21 16:12: SW called daughter, let her know we did not hear back from [facility], will follow up w/[facility] and her in the morning. Daughter states understanding. TERI Escobedo Addendum entered by Maggie Daley 06/13/21 14:02: Social Work SW left [facility] a message to call this SW regarding whether or not they can take this pt under her [employer] insurance. SW awaiting return call. SW called daughter Cheryl, let her know that SW is waiting to hear back from [facility] on whether or not they can take pt under her [employer]. Daughter states understanding. SW will continue to follow. TERI Escobedo Addendum entered by Maggie Daley 06/13/21 12:11: Social Work As per Robert at [facility], they can medically take pt, but need to look into insurance. She requested insurance information be re-sent as it did not go through initially. SW refaxed it to [facility], await return call. TERI Escobedo Original Note: Social Work SW called [facility], message left regarding referral. SW awaiting call back. TERI Escoebdo
[2021-06-13] MEDS: Ibuprofen 400 MG Tablet PO (11:15)
--- NOTE | 2021-06-13 14:30 | PCM.PN.HOSP ---
Documented by User: Antonio ADEN 06/13/21 14:32 Subjective Subjective Patient is a 60-year-old female lying in bed, alert and orient x3. Patient seems stable from yesterday. Denies development of any new symptoms overnight. Does not appear in acute distress. Objective Data Objective Data Vital Signs: Vital Signs Temp Pulse Resp BP Pulse Ox 98.3 F 96 18 131/97 H 97 06/13/21 09:50 06/13/21 09:50 06/13/21 09:50 06/13/21 09:50 06/13/21 12:02 Oxygen Flow Rate (L/min) 2 Oxygen Delivery Method Nasal Cannula Weight: 242 lb 8.136 oz Body Mass Index (BMI) 36.8 Intake & Output: Intake and Output for Last 24 Hours 06/11/21 06/12/21 06/13/21 23:59 23:59 23:59 Intake Total 2780.00 / 2780.00 1072.5 / 1172.5 352.5 / 352.5 Balance 2780.00 / 2780.00 1072.5 / 1172.5 352.5 / 352.5 Lab / Micro Data Result Diagrams: 06/09/21 07:14 06/10/21 06:33 Physical Exam Const alert, oriented x3 and no apparent distress HEENT head/scalp atraumatic and moist oral mucous membranes Head and Scalp: normocephalic Eyes PERRL, EOMs intact bilaterally and conjunctivae normal Neck no lymphadenopathy, supple and no JVD Resp normal respiratory effort, no retractions, no use of accessory muscles and clear to auscultation bilaterally Cardio regular rate, regular rhythm, no murmurs and no JVD GI normal to inspection, nondistended, normoactive bowel sounds, soft to palpation and non-tender Extremity normal to inspection, full ROM and no clubbing, cyanosis or edema Skin no rashes or lesions noted, no wounds and skin turgor normal Neuro CN's II-XII intact bilaterally Psych affect normal Assessment & Plan Assessment/Plan (1) Encephalopathy: PLAN: Day 5 Discharge planning: Discharge to [facility] pending acceptance. CM/ following. 1) multifactorial encephalopathy MRI/MRA not able to be completed due to patient agitation. Brain CT negative on admission was unremarkable. SOC consult obtained and recommendations are as follows: Do not believe patient is having a stroke, believes patient presentation is possibly due to relapse of Warnicke encephalopathy complicated by non compliance with home medications, increase thiamine to 500 mg 3 times daily for 2 to 3 days, then taper to 250 mg for another 2 to 3 days, obtain EEG. EEG obtained and revealed mild generalized background slowing, consistent with toxic/metabolic abnormalities in addition to other. No seizures or epileptiform changes were noted. Continue IV thiamine at 250 mg start (day 3 of 3). Discharge plan as above. 2) stroke rule out Ruled out as above. 3) depression/anxiety Continue BuSpar and Prozac. 4) hyperlipidemia Continue Lipitor. 5) GERD Continue Protonix. DVT prophylaxis - SCDs Patient seen by Antonio Giron PA-C, under the supervision of Dr. Vega. Time spent on patient care 7 minutes. Documented by User: Dr. Sanjay Vega, 06/13/21 18:51 Objective Data Lab / Micro Data Result Diagrams: 06/09/21 07:14 06/10/21 06:33 Charges/Coding Addendum Addendum: Patient was seen and examined today independently of Antonio Giron, patient states she lives alone, according to psych social worker notes, family does not feel the patient is able to take care of her self at home. Patient appears alert and fluent with her sentences, she does not appear to be confused at the time of my examination. On examination she appeared in good health and spirits, she does not appear to be in any distress. Vital signs as documented. Skin warm and dry and without overt rashes. Neck without JVD, thyroid appears normal, trachea is midline, neck is supple. Lungs clear, normal air movement was noted. Heart exam notable for regular rhythm, normal sounds and absence of murmurs, rubs or gallops. Abdomen unremarkable and without evidence of organomegaly, masses, or abdominal aortic enlargement, bowel sounds are present in all 4 quadrants, no abdominal tenderness was noted. Extremities nonedematous, no cyanosis was noted, no clubbing was noted. Neuro: Cranial nerves II through XII are grossly intact, no focal motor deficits were noted, sensation to light touch and pinprick is intact, motor exam 5/5 throughout. Psych: Patient is alert and oriented x3, she does not appear anxious or depressed, she does not appear agitated. Impression #1 toxic encephalopathy on a backdrop of probable Warnicke's encephalopathy-I will need to talk with psych social worker tomorrow about her medical plan of care, it appears that her is her POA but he has deferred decisions to her daughter. I want to make sure the patient is appropriate to go to a long-term versus going home. #2 chronic anxiety and depression-patient will remain on her current psychiatric medications at this time #3 hyperlipidemia-patient is on Lipitor #4 history of alcohol abuse-patient has gone through alcohol detox in the past, she says she is active with [facility]-I have no way of knowing if this is true. #5 COPD-patient is currently on room air, her pulse ox will be monitored, I do not believe she needs any aerosol treatments at this time #6 acute debility-I will check with physical therapy and Occupational Therapy to more see if they feel the patient has any therapy needs. I have reviewed Antonio Giron's progress note including his medical assessment and plan of care and endorse it with the above additions-I have spent 20 minutes reviewing the patient's medical records, formulating a care plan, and performing a medical exam. Visit Charges Inpatient E&M: 10629 Subs Hosp L2
[2021-06-13] MEDS: Atorvastatin Calcium 80 MG Tablet PO (20:40)
[2021-06-13] MEDS: QUEtiapine 25 MG Tablet 50 MG PO (20:40)
[2021-06-13] MEDS: traZODone 100 MG Tablet PO (20:40)
[2021-06-14 05:10] VITALS: BP 135/78; PULSE 93; RESP 18; TEMP 37.1; O2SAT 97
[2021-06-14] MEDS: busPIRone 5 MG Tablet 10 MG PO (05:12)
[2021-06-14] MEDS: Potassium Chloride Oral Tablet 20 MEQ 40 MEQ PO (07:52)
[2021-06-14] MEDS: Folic Acid 1 MG Tablet PO (07:52)
[2021-06-14 08:55] VITALS: BP 152/78; PULSE 81; RESP 20; TEMP 36.9; O2SAT 93
[2021-06-14 09:00] VITALS: O2SAT 94
--- NOTE | 2021-06-14 09:34 | CASEMGMT ---
Addendum entered by Ludivina Schaffer 06/14/21 11:47: SN added for medication management for C. Spoke with Kim at [facility], they are able to see pt tomorrow. Notified pt of this. Addendum entered by Ludivina Schaffer 06/14/21 10:31: SIMON LEONARD back into pt room. Pt has chosen [facility], [facility] and [facility] in that order for C. TC to Kim at [facility], left message for referral. Awaiting acceptance. Original Note: RN CM in to pt room as RN CM notified pt is requesting [facility] for strengthening. Patient was provided a list of C providers including quality and resource use data and consistent with the patient?s preferred geographic region, medical needs, and insurance network. Pt would like to review list and RN CM to check back on choices.
--- NOTE | 2021-06-14 09:46 | CASEMGMT ---
Addendum entered by Maggie Daley 06/15/21 12:16: Social Work SW did speak w/pt about healthcare POA and we reviewed the current document. Pt states wants to keep the document as it is, with Seth being POA and her daughters listed as alternates. TERI Escobedo Original Note: Social Work SW spoke w/physician this morning. He states pt seems to be fully alert and oriented at this time. Pt knows Year, Month, Day, knows where she is. Pt knows all family member names, ages. Pt aware of her insurance. Pt able to answer all questions fully and appropriately. We spoke about pt's discharge plan. Pt is not agreeable to go to a snf. She states she wants to go home, open to home health. She states her sister Chikis will help her at home. Pt states drives, is able to get herself to appointments, able to care for herself and get groceries. SW spoke w/pt about her alcohol abuse. Pt states she has been sober for 100 days. She went to [place] in September for detox, and said she thought she had it all figured out. Since then, she's been here also through the [facility]. Pt has a counselor at [facility], and had been seeing someone at [facility] also. She states her counselor at [facility] quit, is open to SW getting her an appointment to return. She states she used to use other drugs, has not done that for years. She states however she did recently get a medical marijuana card, states this was a mistake. Her family was upset about this, and she states her counselor at [facility] told her that if she is using marijuana she is not sober. We spoke about predisposition for addiction in certain individuals. Pt talked at length about choices she has made, about her history of alcohol abuse. She is aware that alcoholism is a disease, states her does not understand this however. She spoke about how it has impacted her family, her and two daughters. She states that her and her are at present, she is hopeful that they will at some point be able to reconcile. Pt also spoke about her siblings, and the impact of her disease on them as well. SW explained had been speaking w/her daughter Cheryl, pt gave SW permission to speak w/Cheryl to let her know pt is not agreeable to SNF at this time and that she is now going to go home w/home health. SW called [facility] to make an appointment, got voicemail. Jay, Treatment Navigator from [facility] is here and went to see pt, she made an appointment for her. SW called Cheryl, let her know that pt is now alert and oriented and not agreeable to SNF. SW let her know that pt is also moving well with therapy at this time and pt wants to go home w/home health. Daughter states understanding. She states that this will not last, but understands that pt can make her own decisions at this time. SW notified physician that pt is now agreeable to go home w/home health, not agreeable to SNF. No further needs from child protective services social worker. CM will work w/pt to get home health set up. TERI Escobedo
[2021-06-14] MEDS: 0.9% Saline Lock 10 ML Syringe IV (09:58)
[2021-06-14] MEDS: FLUoxetine 10 MG Capsule PO (09:58)
[2021-06-14] MEDS: Magnesium Chloride 64 MG Delay Rel.Tablet 128 MG PO (09:58)
[2021-06-14] MEDS: Pantoprazole Sodium 40 MG Tablet PO (09:58)
--- NOTE | 2021-06-14 10:29 | ADDICTION ---
This worker met with pt to make a follow up counseling appointment at [facility] and provide supportive counseling. She is scheduled for 06/16/21 at 12:00pm.
--- NOTE | 2021-06-14 10:44 | DCINST_ITS ---
Discharge Instructions Diet Discharge Diet: No restrictions Activity Discharge Activity: Return to Normal Activity Weight Bearing Status: Weight bearing as tolerated Dressing / Incision Call your doctor if you observe: Fever of 101 or Higher, Numbness or Tingling, Shortness of breath, Dizziness, Chest pain, Increased palpitations (irregular heartbeat) and Calf discomfort Follow Up Care Please Follow Up With: Primary care provider When: Within the next two weeks. Test Results: Test results from this visit will be discussed in further detail at your follow-up appointment, if applicable. Discharge Plan Admission Admit Date/Time: 06/08/21 17:14 Primary Reason for Your Visit: Confusion Attending Provider: Sanjay Vega Primary Care Provider: Karl Moran Instructions Additional Instructions / Restrictions: * note the medication changes labeled below. * Follow up with [address] [place] [address] services on 06/16/2021 at 12:00pm, as scheduled. Discharge Orders/Prescriptions Prescriptions: Continued buspirone 10 mg tablet 5 mg PO TID RF: 0 pantoprazole 40 MG tablet 40 mg PO DAILY RF: 0 fluoxetine 20 mg Capsule 10 mg PO DAILY RF: 0 benztropine 0.5 mg tablet 0.5 mg PO BID PRN PRN (Reason: shaking) RF: 0 folic acid 1 mg Tablet 1 mg PO DAILY@0800 Qty: 0 RF: 0 gabapentin 300 mg Tablet 300 mg PO BID RF: 0 magnesium oxide 400 mg magnesium Tablet 400 mg PO DAILY RF: 0 naltrexone 50 mg Tablet 50 mg PO DAILY RF: 0 hydroxyzine HCl 50 mg Tablet 50 mg PO TID PRN (Reason: Itching) RF: 0 trazodone 100 mg Tablet 100 mg PO QHS RF: 0 promethazine 25 mg Tablet 25 mg PO Q8H PRN PRN (Reason: Nausea) RF: 0 Changed quetiapine 25 mg tablet 100 mg PO QHS Qty: 0 RF: 0 Discontinued rivastigmine 4.6 mg/24 hour Patch 24 Hour 4.6 mg TRANSDERMAL DAILY RF: 0 memantine 5 mg Tablet 5 mg PO DAILY RF: 0 Referrals / Follow Up: Karl Moran MD [Primary Care Provider] - Within 2 Weeks Disposition Disposition (needs filled in before D/C Order can be placed): Home, Self Care
[2021-06-14] MEDS: Ibuprofen 400 MG Tablet PO (13:23)
[2021-06-14] MEDS: COVID-19 VACC, MRNA(PFIZER)/PF 30 MCG/0.3 ML SYRINGE IM (14:32)
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
[2021-06-14 14:53] VITALS: BP 130/87; PULSE 87; RESP 18; TEMP 37; O2SAT 93
== END 2021-06-14 15:09 | disposition home health service (06) | DRG 640 ==
LOC: ED 15:51 → PCU 17:14 → MS3 06-12 16:26
PROVIDERS: Nurse Practitioner Family; Physician Assistant; Emergency Provider Emergency Medicine; PCP Family Medicine; Visit Provider Internal Medicine
DX: E51.2 Wernicke's encephalopathy (principal); G92.9 Unspecified toxic encephalopathy; J96.11 Chronic respiratory failure with hypoxia; F03.90 Unspecified dementia, unspecified severity, without behavioral disturbance, psychotic disturbance, mood disturbance, and anxiety; E66.01 Morbid (severe) obesity due to excess calories; J44.9 Chronic obstructive pulmonary disease, unspecified; F10.21 Alcohol dependence, in remission; E78.5 Hyperlipidemia, unspecified; N18.1 Chronic kidney disease, stage 1; I12.9 Hypertensive chronic kidney disease with stage 1 through stage 4 chronic kidney disease, or unspecified chronic kidney disease; F41.9 Anxiety disorder, unspecified; K21.9 Gastro-esophageal reflux disease without esophagitis; G47.33 Obstructive sleep apnea (adult) (pediatric); Z87.891 Personal history of nicotine dependence; Z79.899 Other long term (current) drug therapy; F32.A Depression, unspecified; Y92.9 Unspecified place or not applicable
CPT/HCPCS: 0002A; 36415; 70450; 70496; 70498; 71045; 80048; 80061; 80076; 80307; 81001; 82077; 82140; 83735; 84100; 84484; 85025; 85610; 85730; 91300; 92507; 92523; 92526; 92610; 93005; 95819; 97110; 97116; 97162; 97166; 97530; 97535; 99285; J7030; J7040; J7050; Q9967; A4216; J2405; J3490

== ENCOUNTER 2021-07-17 07:05 | Inpatient (IN) | payer MEDICARE, MEDICAID, SELFPAY ==
[2021-07-17] VITALS (10 sets, daily range): BP systolic 90–143; BP diastolic 58–93; PULSE 76–87; RESP 14–82; TEMP 36.6–37.1; O2SAT 20–99; BMI 37.5; BMI 38.9
--- NOTE | 2021-07-17 07:15 | EKG12_ITS ---
Test Reason : FALL Blood Pressure : / mmHG Vent. Rate : 083 BPM Atrial Rate : 083 BPM P-R Int : 154 ms QRS Dur : 136 ms QT Int : 444 ms P-R-T Axes : 045 074 017 degrees QTc Int : 521 ms Normal sinus rhythm Low voltage QRS Right bundle branch block Abnormal ECG Confirmed by SHERYL CLINTON, JOSE ([id number]), editor newspaper JOSIAH FLOOD ([id number]) on 07/19/2021 12:42:46 PM Referred By: MARK Confirmed By:JOSE SAUCEDO MD
--- NOTE | 2021-07-17 07:16 | RAD_ITS ---
STUDY: X-RAY - LEFT FOOT CLINICAL: Female, 60 years old. injury TECHNIQUE: 3 view(s) of the foot. COMPARISON: 03/02/2021 FINDINGS: Normal talus, calcaneus, and tarsal bones. Normal visualized subtalar, talonavicular, calcaneocuboid, tarsal and tarsometatarsal articulations. Healed fracture the neck of the second metatarsal bone. Normal metatarsophalangeal joint of the great toe. Normal tibial and fibular sesamoid bones. Normal interphalangeal joint of the great toe. Normal phalanges of the great toe. Normal second through fifth metatarsophalangeal joints. Acute nondisplaced transverse fracture of the neck of the fourth proximal phalanx. The soft tissue structures are unremarkable. RAD/Foot min 3 Views IMPRESSION: Acute nondisplaced transverse fracture the neck of the fourth proximal phalanx per Electronically Signed: Rui Baugh MD at 8:46 EST ,
--- NOTE | 2021-07-17 07:16 | RAD_ITS ---
STUDY: X-RAY - RIGHT ANKLE REASON FOR EXAM: Female, 60 years old. injury TECHNIQUE: 2 view(s) of the ankle. COMPARISON: None. FINDINGS: Acute lateral subluxation of the tibiotalar joint with laterally displaced oblique fracture the distal fibula at the level tibial plafond and a laterally displaced transverse fracture through the base the medial malleolus the tibia. Normal visualized talus and calcaneus. The visualized subtalar, talonavicular, calcaneocuboid and tarsal articulations are normal. The soft tissue structures are unremarkable. RAD/Ankle min 3 Views IMPRESSION: Acute lateral subluxation of the tibiotalar joint with fractures of the distal fibula and medial malleolus. Electronically Signed: Rui Baugh MD at 8:41 EST ,
--- NOTE | 2021-07-17 07:16 | RAD_ITS ---
STUDY: X-RAY - CERVICAL SPINE REASON FOR EXAM: Female, 60 years old. fall TECHNIQUE: 3 view(s) of the cervical spine were obtained. COMPARISON: 03/08/2017 FINDINGS: Normal anterior atlantoaxial articulation. Normal odontoid process. Normal cervical lordosis. Normal vertebral bodies and endplates. Normal disc space heights. Normal visualized intervertebral neuroforamina. The C6 and C7 vertebrae are not visualized. The soft tissue structures are unremarkable. RAD/Cerv Spine 2 or 3 Views IMPRESSION: No fracture or subluxation from C1 through C5. Electronically Signed: Rui Baugh MD at 8:43 EST ,
--- NOTE | 2021-07-17 07:16 | EX.ED.GENINJ ---
HPI History of Present Illness Chief Complaint: Fall Detail of Chief Complaint: Fall that occurred this morning around 5:30 AM Informant: patient Narrative Narrative: Patient presents to the emergency department after a fall this morning. Patient states that she went to the restroom and then was standing when she states that she just dropped. She denies feeling dizzy or lightheaded. She denies loss of consciousness or head injury. Patient injured her right ankle and can get up. She called her brother who came over and then family called the squad for her. Patient states that she has been having multiple falls over the last 3 weeks. Patient denies alcohol or drug use. She denies recent illness otherwise. She denies head injury or pain. Patient does complain of some pain in her neck that she has had from her multiple falls not just necessarily related to today. She denies any paresthesias or weakness in extremities otherwise. Patient not on blood thinners. [facility] Medical History (Updated 07/17/21 @ 09:[address] Torey Mercedes, ) Abdominal pain Abnormal liver CT Admitted to alcohol detoxification center Alcohol abuse Alcohol withdrawal Anemia Anxiety Arthritis Asthma Bronchiectasis Bronchitis Chronic renal failure Chronic renal insufficiency, stage I Colitis Colitis with rectal bleeding COPD (chronic obstructive pulmonary disease) Depression DVT (deep venous thrombosis) Endocarditis Essential (primary) hypertension Gastritis Gastroesophageal reflux disease History of diarrhea History of umbilical hernia HLD (hyperlipidemia) Idiopathic right ventricular dilation Leukopenia Medical marijuana use Migraine Morbid obesity GENNARO (obstructive sleep apnea) Osteoarthritis Pancytopenia Pneumonia Respiratory failure with hypoxia Respiratory insufficiency Respiratory tract infection due to COVID-19 virus Restrictive lung disease Right bundle branch block (RBBB) Right ventricular systolic dysfunction Sepsis Thrombocytopenia Home Medications pantoprazole 40 mg PO DAILY 12/09/18 [History Last Taken 01/13/21] buspirone 10 mg tablet 5 mg PO TID tab 10/23/19 [History Last Taken 01/13/21] fluoxetine 10 mg PO DAILY 01/14/21 [History Last Taken Unknown] benztropine 0.5 mg PO BID PRN PRN 03/08/21 [History Last Taken Unknown] folic acid 1 mg PO DAILY@0800 #0 tab 03/09/21 [Rx Last Taken Unknown] gabapentin 300 mg PO BID 06/08/21 [History Last Taken Unknown] magnesium oxide 400 mg PO DAILY 06/08/21 [History Last Taken Unknown] hydroxyzine HCl 50 mg PO TID PRN 06/10/21 [History Last Taken Unknown] naltrexone 50 mg PO DAILY 06/10/21 [History Last Taken Unknown] promethazine 25 mg PO Q8H PRN PRN 06/10/21 [History Last Taken Unknown] trazodone 100 mg PO QHS 06/10/21 [History Last Taken Unknown] quetiapine 100 mg PO QHS #0 tab 06/14/21 [Rx Last Taken Unknown] Allergy/AdvReac Type Severity Reaction Status Date / Time Penicillins Allergy Hives Verified 07/17/21 07:20 DUST Allergy itchy eyes Uncoded 07/17/21 07:20 SEASONAL Allergy itchy eyes Uncoded 07/17/21 07:20 Family History Father Colon cancer Mother Cancer pancreatic Surgical History History of appendectomy History of cholecystectomy History of hysterectomy History of tubal ligation Social History (Updated 06/08/21 @ 17:01 by Trena Abdalla NP-C) Smoking Status: Current every day smoker tobacco type: cigarettes Tobacco: How many years used: 25 how long ago did patient quit smokin, 0.5ppd second hand exposure: Yes alcohol intake: former year quit: 2020 substance use type: marijuana ROS ROS ED Constitutional Constitutional ED: Reports systems reviewed and no addt'l complaints, except as documented; Denies body ache(s), change in weight or chills Eyes Eyes: Denies acute decrease in peripheral vision, change in vision, double vision or loss of vision ENT ENT ED: Reports none; Denies ear pain, lip swelling, loss taste/smell, neck pain, otalgia or sore throat Cardiovascular Cardiovascular: Reports none; Denies abdominal pain, chest pain with activity, leg edema, lightheadedness, palpitations, rapid heart rate or syncope Respiratory/Chest Respiratory/Chest: Reports none; Denies change in mental status, dry cough, dyspnea, hemoptysis, shortness of breath at rest or shortness of breath with exertion Gastrointestinal Gastrointestinal: Reports none; Denies abdominal pain, change in stool character, diarrhea, hematemesis, hematochezia, melena, rectal bleeding or vomiting Genitourinary Genitourinary ED: Reports none; Denies abdominal discomfort, anuria, dysuria, genital pain or polyuria Musculoskeletal Musculoskeletal: Reports none and other Details: Right ankle injury and left great toe injury ; Denies arthralgias, back pain, difficulty walking, extremity pain, muscle weakness or myalgias Integumentary Reports none; Denies abscess or rash Neurologic Neurologic: Reports none and weakness; Denies abnormal gait, confusion, focal weakness, frequent falls, headache(s), loss of vision, numbness, paresthesias, radicular pain or vertigo Psychiatric Psychiatric: Reports systems reviewed and no addt'l complaints, except as documented and none; Denies behavioral changes, confusion, difficulty concentrating, hallucinations, suicidal ideation, tactile hallucinations or visual hallucinations Endocrine Endocrinology: Denies none, cold intolerance, excessive sweating, fatigue or heat intolerance Hematologic/Lymphatic Hematologic/Lymphatic: Reports none; Denies anemia, easy bleeding or easy bruising Allergic/Immunologic Allergic/Immunologic ED: Denies as per HPI, none, lip swelling, mouth swelling, throat swelling, tongue swelling or hives EXAM Physical Exam Const Vital Signs: 07/17/21 07:07 07/17/21 07:15 07/17/21 08:43 Temperature 98.0 F Temperature Source Temporal Pulse Rate 82 80 Pulse Rate [1 (Initial Baseline)] 79 Pulse Rate [2] 81 Pulse Rate [3] 80 Pulse Rate [4] 81 Pulse Rate [5] 82 Pulse Rate [6] 81 Pulse Rate [7] 82 Pulse Rate [8] 84 Pulse Rate [9] 83 Respiratory Rate 18 16 Respiratory Rate [1 (Initial Baseline)] 18 Respiratory Rate [2] 16 Respiratory Rate [3] 16 Respiratory Rate [4] 14 Respiratory Rate [5] 14 Respiratory Rate [6] 16 Respiratory Rate [7] 16 Respiratory Rate [8] 16 Respiratory Rate [9] 18 Blood Pressure 143/93 H 90/70 Blood Pressure [1 (Initial Baseline)] 98/70 Blood Pressure [2] 98/70 Blood Pressure [3] 112/84 H Blood Pressure [4] 112/79 Blood Pressure [5] 110/78 Blood Pressure [6] 123/80 H Blood Pressure [7] 123/80 H Blood Pressure [8] 133/84 H Blood Pressure [9] 133/84 H Blood Pressure Mean 109 Pulse Ox 96 98 Oxygen Delivery Method Nasal Cannula Nasal Cannula Oxygen Delivery Method [1 (Initial Baseline)] Nasal Cannula Oxygen Delivery Method [2] Nasal Cannula Oxygen Delivery Method [3] Nasal Cannula Oxygen Delivery Method [4] Nasal Cannula Oxygen Delivery Method [5] Nasal Cannula Oxygen Delivery Method [6] Nasal Cannula Oxygen Delivery Method [7] Nasal Cannula Oxygen Delivery Method [8] Nasal Cannula Oxygen Delivery Method [9] Nasal Cannula Oxygen Flow Rate (L/min) 2 Oxygen Flow Rate (L/min) [1 (Initial Baseline)] 5 Oxygen Flow Rate (L/min) [2] 5 Oxygen Flow Rate (L/min) [3] 5 Oxygen Flow Rate (L/min) [4] 5 Oxygen Flow Rate (L/min) [5] 5 Oxygen Flow Rate (L/min) [6] 5 Oxygen Flow Rate (L/min) [7] 3 Oxygen Flow Rate (L/min) [8] 2 Oxygen Flow Rate (L/min) [9] 2 07/17/21 09:07 07/17/21 09:12 Temperature Temperature Source Pulse Rate 80 80 Pulse Rate [1 (Initial Baseline)] Pulse Rate [2] Pulse Rate [3] Pulse Rate [4] Pulse Rate [5] Pulse Rate [6] Pulse Rate [7] Pulse Rate [8] Pulse Rate [9] Respiratory Rate 16 16 Respiratory Rate [1 (Initial Baseline)] Respiratory Rate [2] Respiratory Rate [3] Respiratory Rate [4] Respiratory Rate [5] Respiratory Rate [6] Respiratory Rate [7] Respiratory Rate [8] Respiratory Rate [9] Blood Pressure 126/81 H 126/78 H Blood Pressure [1 (Initial Baseline)] Blood Pressure [2] Blood Pressure [3] Blood Pressure [4] Blood Pressure [5] Blood Pressure [6] Blood Pressure [7] Blood Pressure [8] Blood Pressure [9] Blood Pressure Mean Pulse Ox 98 99 Oxygen Delivery Method Nasal Cannula Nasal Cannula Oxygen Delivery Method [1 (Initial Baseline)] Oxygen Delivery Method [2] Oxygen Delivery Method [3] Oxygen Delivery Method [4] Oxygen Delivery Method [5] Oxygen Delivery Method [6] Oxygen Delivery Method [7] Oxygen Delivery Method [8] Oxygen Delivery Method [9] Oxygen Flow Rate (L/min) 2 Oxygen Flow Rate (L/min) [1 (Initial Baseline)] Oxygen Flow Rate (L/min) [2] Oxygen Flow Rate (L/min) [3] Oxygen Flow Rate (L/min) [4] Oxygen Flow Rate (L/min) [5] Oxygen Flow Rate (L/min) [6] Oxygen Flow Rate (L/min) [7] Oxygen Flow Rate (L/min) [8] Oxygen Flow Rate (L/min) [9] Positive well nourished and well developed General Appearance ED: well developed and NAD HEENT Reports TM's clear and moist mucous membranes normocephalic and atraumatic; Negative for trauma or tenderness Tympanic Membrane ED: Yes TM's clear Eyes PERRL and EOMs intact bilaterally General Eye ED: Negative for pale conjunctiva or scleral icterus Neck no lymphadenopathy, supple and no JVD General: Negative for tenderness Chest Wall inspection of chest normal and palpation of chest normal Chest: Negative for tenderness Resp normal respiratory effort and clear to auscultation bilaterally Effort and Inspection: Negative for respiratory distress or pain with movement Auscultation: Negative for rhonchi, wheezes or diminished lung sounds Cardio regular rate, regular rhythm, S1 normal heart sound, S2 normal heart sound and no murmurs Peripheral Pulses: pulses 2+ throughout GI normal to inspection, nondistended, normoactive bowel sounds, soft to palpation, non-tender, non-distended and no masses Back/Spine no CVA tenderness and no thoracic nor lumbar tenderness Extremity Extremity Narrative: Patient has ecchymosis and bruising about the left ankle with diffuse soft tissue swelling and deformity. No broken or open skin noted. Neurovascularly intact distally. No pain at the proximal fibular head. Evaluation of the left foot does reveal some tenderness palpation over the great toe with partial avulsion of the toenail with some dried blood noted. Neurovascularly intact. No obvious deformity to the toe. General Extremety ED: Negative for edema General Extremity: Negative for edema Neuro oriented x3, CN's II-XII intact bilaterally, no sensory deficits noted and gait normal Sensorium / Orientation: awake, alert, oriented to person, oriented to place and oriented to time Motor Exam: strength 5/5 throughout and strength abnormal Psych mental status grossly normal Skin no rashes or lesions noted and no wounds PROC Procedures Other Procedures Procedure(s): Patient had procedural sedation for reduction of closed right ankle fracture. Patient received propofol total of 80 mg IV with good sedation. With gentle traction I was able to easily reduce the ankle and splinted in a stirrup and posterior leg splint. MDM MDM MDM Narrative Medical decision making narrative: Lab work-up was unremarkable. I did reduce the patient's right ankle fracture and dislocation. I discussed case with orthopedic surgeon who recommended that I speak with faculty neuropsychologist on-call. I spoke with who will see patient in consultation. Patient will be admitted for the frequent falls and I will feel she safe to go home with crutches given the frequent falls over the last 3 weeks. Patient's alcohol level was negative. I did discuss case with hospitalist will evaluate patient for admission. Lab Data Attestation: I reviewed the patient's lab results. Labs: Laboratory Results - last 24 hr 07/17/21 07/17/21 07/17/21 07:15 07:15 07:40 WBC 4.5 RBC 4.39 Hgb 12.2 Hct 38.6 MCV 87.9 MCH 27.8 MCHC 31.6 L RDW Std Deviation 43.3 RDW Coeff of Jaun 13.4 Plt Count 133 L MPV 10.0 Immature Gran % (Auto) 0.400 Neut % (Auto) 78.5 H Lymph % (Auto) 15.5 L Hyde % (Auto) 4.9 Eos % (Auto) 0.7 Baso % (Auto) 0.0 Absolute Neuts (auto) 3.6 Absolute Lymphs (auto) 0.70 L Nucleated RBC % 0 Sodium 142 Potassium 3.4 L Chloride 106 Carbon Dioxide 32.0 Anion Gap 4 L BUN 9 Creatinine 1.13 H Estim Creat Clear Calc 52.13 Est GFR (MDRD) Af Amer 63 Est GFR (MDRD) Non-Af 52 L BUN/Creatinine Ratio 8.0 L Glucose 157 H Calcium 8.7 Troponin I High Sens 10 Ethyl Alcohol < 3.0 Radiography Diagnostic Testing: Clinical Impression(s) from Imaging Studies Ankle X-Ray 07/17/21 07:16 IMPRESSION: Acute lateral subluxation of the tibiotalar joint with fractures of the distal fibula and medial malleolus. Electronically Signed: Rui Baugh MD at 8:41 EST , ADDENDUM: 07/17/21 0858 Cervical Spine X-Ray 07/17/21 07:16 IMPRESSION: No fracture or subluxation from C1 through C5. Electronically Signed: Rui Baugh MD at 8:43 EST Reading Location ID and State: [employer] / [employer] , Service support , Foot X-Ray 07/17/21 07:16 IMPRESSION: Acute nondisplaced transverse fracture the neck of the fourth proximal phalanx per Electronically Signed: Rui Baugh MD at 8:46 EST Reading Location ID and State: [email or web address] , Service support , Chest X-Ray 07/17/21 08:00 IMPRESSION: No active disease. Electronically Signed: Rui Baugh MD at 8:43 EST Reading Location ID and State: [email or web address] , Service support , Tibia/Fibula X-Ray 07/17/21 08:34 IMPRESSION: Acute lateral subluxation of the tibiotalar joint with fractures of the distal fibula and medial malleolus the tibia. Electronically Signed: Rui Baugh MD at 8:48 EST Reading Location ID and State: [employer] / [employer] , Service support , Ankle X-Ray 07/17/21 08:50 IMPRESSION: Interval reduction of the tibiotalar joint with improved alignment of fractures of the distal fibula and medial malleolus. Electronically Signed: Rui Baugh MD at 9:08 EST Reading Location ID and State: [email or web address] / [employer] , Service support , Three-view x-rays of right ankle obtained interpreted by myself is bimalleolar fracture with ankle dislocation. Radiology was in agreement. X-rays of the left foot obtained interpreted by myself is fracture of the fourth proximal phalanx. Radiology in agreement. Three-view x-rays of the C-spine obtained interpreted by myself as no acute fractures or dislocations. Radiology in agreement. 1 view chest x-ray obtained interpreted by myself as no acute disease process and radiology in agreement. Post reduction x-rays of the right ankle obtained 3 views and interpreted by myself is good reduction. EKG Initial EKG: Attestation: I personally reviewed and interpreted this EKG as follows: Comments: Sinus rhythm with a ventricular rate of 83 bpm with a right bundle branch block Prior EKG tracings: available for review Prior: Unchanged Discharge Plan Triage Chief Complaint: Fall ED Provider: Torey Mercedes Dx/Rx/DC Orders Clinical Impression: Falls, Bimalleolar fracture of right ankle, Closed fracture of fourth toe of left foot Prescriptions: No Action buspirone 10 mg tablet 5 mg PO TID RF: 0 pantoprazole 40 MG tablet 40 mg PO DAILY RF: 0 fluoxetine 20 mg Capsule 10 mg PO DAILY RF: 0 benztropine 0.5 mg tablet 0.5 mg PO BID PRN PRN (Reason: shaking) RF: 0 folic acid 1 mg Tablet 1 mg PO DAILY@0800 Qty: 0 RF: 0 gabapentin 300 mg Tablet 300 mg PO BID RF: 0 magnesium oxide 400 mg magnesium Tablet 400 mg PO DAILY RF: 0 naltrexone 50 mg Tablet 50 mg PO DAILY RF: 0 hydroxyzine HCl 50 mg Tablet 50 mg PO TID PRN (Reason: Itching) RF: 0 trazodone 100 mg Tablet 100 mg PO QHS RF: 0 promethazine 25 mg Tablet 25 mg PO Q8H PRN PRN (Reason: Nausea) RF: 0 quetiapine 25 mg tablet 100 mg PO QHS Qty: 0 RF: 0 Primary Care Provider: Karl Moran Referrals: Karl Moran MD [Primary Care Provider] - Disposition Disposition: Acute Care [facility]
[2021-07-17] MEDS: Ondansetron 4 MG/2 ML Vial IV (07:22)
[2021-07-17] MEDS: Morphine 4 MG/ML Syringe IV ×3 (07:22→19:59)
[2021-07-17 07:25] LABS: Absolute Neutrophil Count 3.6 X10^3/uL (2.0-7.7); Eosinophil# 0.03 X10^3/uL; Eosinophils% 0.7 % (0-5); Hematocrit 38.6 % (37-47); Hemoglobin 12.2 g/dL (12.0-15.0); Lymphocyte % 15.5 % (19-41); Mean Corp Hgb Conc 31.6 g/dL (32-36); Mean Corpuscular Hgb 27.8 pg (27.0-32.0); Mean Corpuscular Volume 87.9 fL (81-99); Monocyte# 0.22 X10^3/uL; Monocyte% 4.9 % (0-10); NRBC Flagged by Analyzer 0 % (0-5); Neutrophil # 3.55 X10^3/uL (2.7-7.7); Neutrophil % 78.5 % (47-70); Platelet Count 133 K/mm3 (150-450); RBC Distribution Width CV 13.4 % (11.6-14.6); RBC Distribution Width SD 43.3 fl (35.1-43.9); Red Blood Count 4.39 M/mm3 (4.2-5.4); White Blood Count 4.5 K/mm3 (4.4-11.0)
[2021-07-17 07:39] LABS: Anion Gap 4 (5-15); BUN 9 mg/dL (7-18); Calcium,Total 8.7 mg/dL (8.5-10.1); Chloride 106 mmol/L (98-107); Creatinine, Serum 1.13 mg/dL (0.55-1.02); EST Glomerular Filtration Rate 52 mL/min (>60); Est Glom Filt Rate - Afr Amer 63 mL/min (>60); Estimated Creatinine Clearance 52.13 ml/min; Glucose 157 mg/dL (74-106); Potassium 3.4 mmol/L (3.5-5.1); Sodium Level 142 mmol/L (136-145); Troponin-I HS 10 pg/mL (3.0-54.0)
[2021-07-17] MEDS: 0.9% Normal Saline 1,000 ML 150 ML IV (07:41)
--- NOTE | 2021-07-17 08:00 | RAD_ITS ---
STUDY: X-RAY CHEST REASON FOR EXAM: Female, 60 years old. falls TECHNIQUE: Single AP portable view of the chest. COMPARISON: 06/08/2021 FINDINGS: The lungs are clear and expanded. Elevated right hemidiaphragm which is unchanged. There is moderate cardiac enlargement. Normal mediastinum and myriam. Normal visualized pulmonary arteries. Normal visualized aortic arch and descending thoracic aorta. Normal visualized thoracic spine. Normal visualized ribs, clavicles, and shoulders. There is no demonstrated abnormality of the visualized soft tissue structures of the upper abdomen. RAD/Chest 1 View (Portable) IMPRESSION: No active disease. Electronically Signed: Rui Baugh MD at 8:43 EST ,
--- NOTE | 2021-07-17 08:34 | RAD_ITS ---
STUDY: X-RAY - RIGHT TIBIA AND FIBULA REASON FOR EXAM: Female, 60 years old. injury TECHNIQUE: 2 view(s) of the tibia and fibula were obtained. COMPARISON: 11/16/2020 FINDINGS: Acute laterally displaced transverse fracture the base the medial malleolus the tibia. Acute laterally displaced oblique fracture the distal fibula the level tibial plafond. Healed fracture the proximal shaft of the fibula. The soft tissue structures are unremarkable. RAD/Tibia & Fibula 2 Views IMPRESSION: Acute lateral subluxation of the tibiotalar joint with fractures of the distal fibula and medial malleolus the tibia. Electronically Signed: Rui Baugh MD at 8:48 EST ,
[2021-07-17 08:38] LABS: Alcohol, Blood (Medical)-Serum < 3.0 mg/dL
--- NOTE | 2021-07-17 08:50 | RAD_ITS ---
STUDY: X-RAY - RIGHT ANKLE REASON FOR EXAM: Female, 60 years old. post reductionn TECHNIQUE: 2 view(s) of the ankle. COMPARISON: 07/17/2021 at 0805 FINDINGS: Interval reduction of the tibiotalar joint with markedly improved alignment of the fractures of the distal fibula the tibial plafond and the transverse fractures of the base the medial malleolus the tibia. Normal visualized talus and calcaneus. The visualized subtalar, talonavicular, calcaneocuboid and tarsal articulations are normal. Fiberglas cast a posterior soft tissue and bony detail. RAD/Ankle 2 Views IMPRESSION: Interval reduction of the tibiotalar joint with improved alignment of fractures of the distal fibula and medial malleolus. Electronically Signed: Rui Baugh MD at 9:08 EST ,
[2021-07-17] MEDS: Propofol 200 MG/20 ML Vial IV BOLUS (09:03)
--- NOTE | 2021-07-17 09:17 | PCM.HP.STD ---
HPI - General General Date of Admission: 07/17/21 Date of Service: 07/17/21 Chief Complaint: Fall and right ankle pain HPI Narrative ALFIE HOGAN, is a 60 F with multiple comorbidities including history of polysubstance dependence including alcohol dependence for which patient has remained sober for almost 3 months who presented with a fall on the morning of admission. Patient incident occurred on the morning of her presentation. She was apparently walking to the bathroom when she just fell. Patient does not recall feeling lightheaded or tripping. She was brought to the emergency department by EMS squad. Imaging studies obtained in the ED demonstrated Acute lateral subluxation of the tibiotalar joint with fractures of the distal fibula and medial malleolus the tibia. Subsequently admitted to regular nursing floor with consultation placed podiatry surgery [facility] Medical History Abdominal pain Abnormal liver CT Admitted to alcohol detoxification center Alcohol abuse Alcohol withdrawal Anemia Anxiety Arthritis Asthma Bronchiectasis Bronchitis Chronic renal failure Chronic renal insufficiency, stage I Colitis Colitis with rectal bleeding COPD (chronic obstructive pulmonary disease) Depression DVT (deep venous thrombosis) Endocarditis Essential (primary) hypertension Gastritis Gastroesophageal reflux disease History of diarrhea History of umbilical hernia HLD (hyperlipidemia) Idiopathic right ventricular dilation Leukopenia Medical marijuana use Migraine Morbid obesity GENNARO (obstructive sleep apnea) Osteoarthritis Pancytopenia Pneumonia Respiratory failure with hypoxia Respiratory insufficiency Respiratory tract infection due to COVID-19 virus Restrictive lung disease Right bundle branch block (RBBB) Right ventricular systolic dysfunction Sepsis Thrombocytopenia Home Medications pantoprazole 40 mg PO DAILY 12/09/18 [History Last Taken 01/13/21] buspirone 10 mg tablet 5 mg PO TID tab 10/23/19 [History Last Taken 01/13/21] fluoxetine 10 mg PO DAILY 01/14/21 [History Last Taken Unknown] benztropine 0.5 mg PO BID PRN PRN 03/08/21 [History Last Taken Unknown] folic acid 1 mg PO DAILY@0800 #0 tab 03/09/21 [Rx Last Taken Unknown] gabapentin 300 mg PO BID 06/08/21 [History Last Taken Unknown] magnesium oxide 400 mg PO DAILY 06/08/21 [History Last Taken Unknown] hydroxyzine HCl 50 mg PO TID PRN 06/10/21 [History Last Taken Unknown] naltrexone 50 mg PO DAILY 06/10/21 [History Last Taken Unknown] promethazine 25 mg PO Q8H PRN PRN 06/10/21 [History Last Taken Unknown] trazodone 100 mg PO QHS 06/10/21 [History Last Taken Unknown] quetiapine 100 mg PO QHS #0 tab 06/14/21 [Rx Last Taken Unknown] Allergy/AdvReac Type Severity Reaction Status Date / Time Penicillins Allergy Hives Verified 07/17/21 07:20 DUST Allergy itchy eyes Uncoded 07/17/21 07:20 SEASONAL Allergy itchy eyes Uncoded 07/17/21 07:20 Family History Father Colon cancer Mother Cancer pancreatic Surgical History History of appendectomy History of cholecystectomy History of hysterectomy History of tubal ligation Social History Smoking Status: Current every day smoker tobacco type: cigarettes Tobacco: How many years used: 25 how long ago did patient quit smokin, 0.5ppd second hand exposure: Yes alcohol intake: former year quit: 2020 substance use type: marijuana ROS ROS Narrative GENERAL: denies fever, chills, night sweats, weight loss, anorexia HEENT: denies headache, sinus congestion, or drainage, dysphagia RESPIRATORY: denies cough, sputum production, shortness of breath, CARDIAC: denies chest pain, palpitations, orthopnea, GASTROINTESTINAL: denies abdominal pain, nausea, GENITOURINARY: denies dysuria, urgency, frequency, EXTREMITY: denies swelling MUSCULOSKELETAL: Right ankle pain NEUROLOGIC: denies focal numbness, weakness, tingling HEMATOLOGIC: denies easy bruising and/or hemorrhage INTEGUMENT: denies rashes PSYCHIATRIC: denies suicidal or homicidal ideation Vital Signs Vital Signs Vital Signs: 07/17/21 07:07 07/17/21 07:15 07/17/21 08:43 Temperature 98.0 F Temperature Source Temporal Pulse Rate 82 80 Pulse Rate [1 (Initial Baseline)] 79 Pulse Rate [2] 81 Pulse Rate [3] 80 Pulse Rate [4] 81 Pulse Rate [5] 82 Pulse Rate [6] 81 Pulse Rate [7] 82 Pulse Rate [8] 84 Pulse Rate [9] 83 Respiratory Rate 18 16 Respiratory Rate [1 (Initial Baseline)] 18 Respiratory Rate [2] 16 Respiratory Rate [3] 16 Respiratory Rate [4] 14 Respiratory Rate [5] 14 Respiratory Rate [6] 16 Respiratory Rate [7] 16 Respiratory Rate [8] 16 Respiratory Rate [9] 18 Blood Pressure 143/93 H 90/70 Blood Pressure [1 (Initial Baseline)] 98/70 Blood Pressure [2] 98/70 Blood Pressure [3] 112/84 H Blood Pressure [4] 112/79 Blood Pressure [5] 110/78 Blood Pressure [6] 123/80 H Blood Pressure [7] 123/80 H Blood Pressure [8] 133/84 H Blood Pressure [9] 133/84 H Blood Pressure Mean 109 Pulse Ox 96 98 Oxygen Delivery Method Nasal Cannula Nasal Cannula Oxygen Delivery Method [1 (Initial Baseline)] Nasal Cannula Oxygen Delivery Method [2] Nasal Cannula Oxygen Delivery Method [3] Nasal Cannula Oxygen Delivery Method [4] Nasal Cannula Oxygen Delivery Method [5] Nasal Cannula Oxygen Delivery Method [6] Nasal Cannula Oxygen Delivery Method [7] Nasal Cannula Oxygen Delivery Method [8] Nasal Cannula Oxygen Delivery Method [9] Nasal Cannula Oxygen Flow Rate (L/min) 2 Oxygen Flow Rate (L/min) [1 (Initial Baseline)] 5 Oxygen Flow Rate (L/min) [2] 5 Oxygen Flow Rate (L/min) [3] 5 Oxygen Flow Rate (L/min) [4] 5 Oxygen Flow Rate (L/min) [5] 5 Oxygen Flow Rate (L/min) [6] 5 Oxygen Flow Rate (L/min) [7] 3 Oxygen Flow Rate (L/min) [8] 2 Oxygen Flow Rate (L/min) [9] 2 07/17/21 09:07 07/17/21 09:12 Temperature Temperature Source Pulse Rate 80 80 Pulse Rate [1 (Initial Baseline)] Pulse Rate [2] Pulse Rate [3] Pulse Rate [4] Pulse Rate [5] Pulse Rate [6] Pulse Rate [7] Pulse Rate [8] Pulse Rate [9] Respiratory Rate 16 16 Respiratory Rate [1 (Initial Baseline)] Respiratory Rate [2] Respiratory Rate [3] Respiratory Rate [4] Respiratory Rate [5] Respiratory Rate [6] Respiratory Rate [7] Respiratory Rate [8] Respiratory Rate [9] Blood Pressure 126/81 H 126/78 H Blood Pressure [1 (Initial Baseline)] Blood Pressure [2] Blood Pressure [3] Blood Pressure [4] Blood Pressure [5] Blood Pressure [6] Blood Pressure [7] Blood Pressure [8] Blood Pressure [9] Blood Pressure Mean Pulse Ox 98 99 Oxygen Delivery Method Nasal Cannula Nasal Cannula Oxygen Delivery Method [1 (Initial Baseline)] Oxygen Delivery Method [2] Oxygen Delivery Method [3] Oxygen Delivery Method [4] Oxygen Delivery Method [5] Oxygen Delivery Method [6] Oxygen Delivery Method [7] Oxygen Delivery Method [8] Oxygen Delivery Method [9] Oxygen Flow Rate (L/min) 2 Oxygen Flow Rate (L/min) [1 (Initial Baseline)] Oxygen Flow Rate (L/min) [2] Oxygen Flow Rate (L/min) [3] Oxygen Flow Rate (L/min) [4] Oxygen Flow Rate (L/min) [5] Oxygen Flow Rate (L/min) [6] Oxygen Flow Rate (L/min) [7] Oxygen Flow Rate (L/min) [8] Oxygen Flow Rate (L/min) [9] Weight Weight: 108.862 kg Body Mass Index (BMI) 37.5 Physical Exam Narrative GENERAL: cooperative HEENT: Atraumatic; EYES; Anicteric, Normal Conjunctiva NECK; supple, normal thyroid, RESPIRATORY: Diminished to auscultation CARDIOVASCULAR: Regular S1 S2, GI: soft, normoactive bowel sounds, : No Renal angle tenderness; EXTREMITIES: No edema, no clubbing, MUSCULOSKELETAL: Right ankle immobilized NEURO: Awake; no lateralizing signs. SKIN: No Rash PSYCH; Flat affect Results Lab / Micro Data Result Diagrams: 07/17/21 07:15 07/17/21 07:15 Labs: Laboratory Results - last 24 hr 07/17/21 07:15: WBC 4.5, RBC 4.39, Hgb 12.2, Hct 38.6, MCV 87.9, MCH 27.8, MCHC 31.6 L, RDW Std Deviation 43.3, RDW Coeff of Jaun 13.4, Plt Count 133 L, MPV 10.0, Immature Gran % (Auto) 0.400, Neut % (Auto) 78.5 H, Lymph % (Auto) 15.5 L, [place] % (Auto) 4.9, Eos % (Auto) 0.7, Baso % (Auto) 0.0, Absolute Neuts (auto) 3.6, Absolute Lymphs (auto) 0.70 L, Nucleated RBC % 0 07/17/21 07:15: Sodium 142, Potassium 3.4 L, Chloride 106, Carbon Dioxide 32.0, Anion Gap 4 L, BUN 9, Creatinine 1.13 H, Estim Creat Clear Calc 52.13, Est GFR (MDRD) Af Amer 63, Est GFR (MDRD) Non-Af 52 L, BUN/Creatinine Ratio 8.0 L, Glucose 157 H, Calcium 8.7, Troponin I High Sens 10 07/17/21 07:40: Ethyl Alcohol < 3.0 Radiology Impression Ankle X-Ray 07/17/21 07:16 IMPRESSION: Acute lateral subluxation of the tibiotalar joint with fractures of the distal fibula and medial malleolus. Electronically Signed: Rui Baugh MD at 8:41 EST Reading Location ID and State: [employer] , Service support , ADDENDUM: 07/17/21 0858 Cervical Spine X-Ray 07/17/21 07:16 IMPRESSION: No fracture or subluxation from C1 through C5. Electronically Signed: Rui Baugh MD at 8:43 EST Reading Location ID and State: [employer] , Service support , Foot X-Ray 07/17/21 07:16 IMPRESSION: Acute nondisplaced transverse fracture the neck of the fourth proximal phalanx per Electronically Signed: Rui Baugh MD at 8:46 EST Reading Location ID and State: [employer] , Service support , Chest X-Ray 07/17/21 08:00 IMPRESSION: No active disease. Electronically Signed: Rui Baugh MD at 8:43 EST Reading Location ID and State: [employer] , Service support , Tibia/Fibula X-Ray 07/17/21 08:34 IMPRESSION: Acute lateral subluxation of the tibiotalar joint with fractures of the distal fibula and medial malleolus the tibia. Electronically Signed: Rui Baugh MD at 8:48 EST Reading Location ID and State: [id number] , Service support , Ankle X-Ray 07/17/21 08:50 IMPRESSION: Interval reduction of the tibiotalar joint with improved alignment of fractures of the distal fibula and medial malleolus. Electronically Signed: Rui Baugh MD at 9:08 EST Reading Location ID and State: [id number] , Service support , Assessment & Plan Assessment/Plan (1) Frequent falls: PLAN: 60-year-old lady who presented with a fall found to have bimalleolar fracture involving the right ankle 1. Fall with right ankle injury ?Imaging studies obtained on admission demonstrated Acute lateral subluxation of the tibiotalar joint with fractures of the distal fibula and medial malleolus the tibia reduced in the ED subsequently admitted to regular nursing floor for pain management consultation placed to Dr. Vazquez with podiatry for definitive care 2. Frequent falls -do suspect patient multiple psychotropic medications playing a role suspected offending medications including gabapentin held on admission. Further review may need to be undertaken prior to patient being discharged 3. Hypokalemia ?Repleted per protocol subsequent monitoring with daily BMPs ordered 4. Polysubstance abuse ?Including hospitalization for chronic alcohol dependence with withdrawal. Per patient she is remained sober for the last 3 months. Patient was counseled to continue to remain sober 5. Chronic hypoxic respiratory failure ?Secondary to COPD, mild intermittent asthma, bronchiectasis, patient is on baseline home oxygen did continue 6. Class II obesity with BMI of 37.6 ?Weight loss advised 6. Obstructive sleep apnea ?Patient is on BiPAP at night, did continue with home setting 7. GERD ?Patient is on PPI, did continue 8. Depression with anxiety ?Patient is on SSRI did continue 9. Dyslipidemia ?Apparently managed with diet 10. History of essential hypertension ?Patient currently not on any antihypertensives blood pressure remained stable 11. History of endocarditis - currently stable 12. History of COVID-19 infection ?Currently stable 13. Mild thrombocytopenia ?Due to previous history of chronic alcohol dependence will monitor with daily CBC 14. DVT prophylaxis ?SCDs for now with plans to initiate chemoprophylaxis after surgery Charges/Coding Visit Charges Inpatient E&M: 46441 Init Hosp L3
[2021-07-17] MEDS: Pantoprazole Sodium 40 MG Tablet PO (12:30)
[2021-07-17] MEDS: Acetaminophen 500 MG Tablet 1000 MG PO ×2 (12:30→17:40)
[2021-07-17] MEDS: FLUoxetine 10 MG Capsule PO (12:31)
[2021-07-17] MEDS: KCL 20MEQ in 0.9% NS 20 MEQ/1,000 ML IV.SOLN. 125 MEQ IV ×2 (12:53→19:58)
[2021-07-17] MEDS: oxyCODONE 5 MG Tablet PO ×2 (12:53→17:41)
--- NOTE | 2021-07-17 15:37 | CON.PCM_ITS ---
Assessment & Plan Assessment/Plan (1) Displaced trimalleolar fracture of right lower leg, initial encounter for closed fracture: (2) Fracture of toe of left foot: PLAN: Evaluation performed. Reviewed right ankle xrays and left foot xrays. Discussed findings with patient. Discussed conditions and treatment options with patient. Right ankle would benefit from ORIF, patient will need to be medically cleared. Could do right ankle ORIF this Sunday. Keep right foot/ankle/leg splint clean, dry and intact. No weightbearing right foot. Keep foot elevated. Left foot - treat nonsurgically - surgical shoe with weightbearing left foot. Will order left ankle xrays. Podiatry will continue to follow, thank you for consultation. HPI Consult Data Date of Consult: 07/17/21 HPI Narrative Reason for Consultation: Right ankle fracture HPI Narrative: ALFIE HOGAN, is a 60 F who presents to [facility] due to a fall. She fell today and presented to the ER. She sustained a right ankle fracture due to the fall - trimalleolus ankle fracture s/p closed reduction in ER today. She also sustained a left 4th toe fracture. She is resting in bed, no complaints of pain, no fever, chills, nausea or vomiting. She is disabled. She has hx of many medical problems, including hx of alcohol abuse. [facility] Medical History (Updated 07/17/21 @ 15:[address] Josh Vazquez, DPM) Abdominal pain Abnormal liver CT Admitted to alcohol detoxification center Alcohol abuse Alcohol withdrawal Anemia Anxiety Arthritis Asthma Bronchiectasis Bronchitis Chronic renal failure Chronic renal insufficiency, stage I Colitis Colitis with rectal bleeding COPD (chronic obstructive pulmonary disease) Depression DVT (deep venous thrombosis) Endocarditis Essential (primary) hypertension Gastritis Gastroesophageal reflux disease History of diarrhea History of umbilical hernia HLD (hyperlipidemia) Idiopathic right ventricular dilation Leukopenia Medical marijuana use Migraine Morbid obesity GENNARO (obstructive sleep apnea) Osteoarthritis Pancytopenia Pneumonia Respiratory failure with hypoxia Respiratory insufficiency Respiratory tract infection due to COVID-19 virus Restrictive lung disease Right bundle branch block (RBBB) Right ventricular systolic dysfunction Sepsis Thrombocytopenia Home Medications pantoprazole 40 mg PO DAILY 12/09/18 [History Last Taken 01/13/21] buspirone 10 mg tablet 5 mg PO TID tab 10/23/19 [History Last Taken 01/13/21] fluoxetine 10 mg PO DAILY 01/14/21 [History Last Taken Unknown] benztropine 0.5 mg PO BID PRN PRN 03/08/21 [History Last Taken Unknown] folic acid 1 mg PO DAILY@0800 #0 tab 03/09/21 [Rx Last Taken Unknown] gabapentin 300 mg PO BID 06/08/21 [History Last Taken Unknown] magnesium oxide 400 mg PO DAILY 06/08/21 [History Last Taken Unknown] hydroxyzine HCl 50 mg PO TID PRN 06/10/21 [History Last Taken Unknown] promethazine 25 mg PO Q8H PRN PRN 06/10/21 [History Last Taken Unknown] trazodone 100 mg PO QHS 06/10/21 [History Last Taken Unknown] quetiapine 200 mg PO QHS 07/17/21 [History Last Taken Unknown] thiamine HCl (vitamin B1) 100 mg PO DAILY 07/17/21 [History Last Taken Unknown] Allergy/AdvReac Type Severity Reaction Status Date / Time Penicillins Allergy Hives Verified 07/17/21 07:20 DUST Allergy itchy eyes Uncoded 07/17/21 07:20 SEASONAL Allergy itchy eyes Uncoded 07/17/21 07:20 Family History Father Colon cancer Mother Cancer pancreatic Surgical History History of appendectomy History of cholecystectomy History of hysterectomy History of tubal ligation Social History Smoking Status: Current every day smoker tobacco type: cigarettes Tobacco: How many years used: 25 how long ago did patient quit smokin, 0.5ppd second hand exposure: Yes alcohol intake: former year quit: 2020 substance use type: marijuana Physical Exam Const alert and no apparent distress Extremity Extremity Narrative: s/p closed reduction right ankle fracture with splint clean, dry and intact, CFT < 2 seconds to all toes and sensation intact to the toe. Left foot with superficial abrasion to dorsal distal toe with no active bleeding, otherwise no open lesions, no erythema, no fluctuance, no crepitus noted, there is POP to the 4th and 5th toes c/w fracture but not dislocated, there is some POP to the sinus tarsi of the hindfoot on the left foot, otherwise sensation intact, CFT < 2 seconds to all toes left foot. Muscle strength intact to left foot. Lab / Micro Data Result Diagrams: 07/17/21 07:15 07/17/21 07:15 Labs: Laboratory Results - last 24 hr 07/17/21 07:15: WBC 4.5, RBC 4.39, Hgb 12.2, Hct 38.6, MCV 87.9, MCH 27.8, MCHC 31.6 L, RDW Std Deviation 43.3, RDW Coeff of Jaun 13.4, Plt Count 133 L, MPV 10.0, Immature Gran % (Auto) 0.400, Neut % (Auto) 78.5 H, Lymph % (Auto) 15.5 L, [place] % (Auto) 4.9, Eos % (Auto) 0.7, Baso % (Auto) 0.0, Absolute Neuts (auto) 3.6, Absolute Lymphs (auto) 0.70 L, Nucleated RBC % 0 07/17/21 07:15: Sodium 142, Potassium 3.4 L, Chloride 106, Carbon Dioxide 32.0, Anion Gap 4 L, BUN 9, Creatinine 1.13 H, Estim Creat Clear Calc 52.13, Est GFR (MDRD) Af Amer 63, Est GFR (MDRD) Non-Af 52 L, BUN/Creatinine Ratio 8.0 L, Glucose 157 H, Calcium 8.7, Troponin I High Sens 10 07/17/21 07:40: Ethyl Alcohol < 3.0 Radiology Impression Ankle X-Ray 07/17/21 07:16 IMPRESSION: Acute lateral subluxation of the tibiotalar joint with fractures of the distal fibula and medial malleolus. Electronically Signed: Rui Baugh MD at 8:41 EST Reading Location ID and State: [id number] / [employer] , Service support , ADDENDUM: 07/17/21 0858 Cervical Spine X-Ray 07/17/21 07:16 IMPRESSION: No fracture or subluxation from C1 through C5. Electronically Signed: Rui Baugh MD at 8:43 EST , Foot X-Ray 07/17/21 07:16 IMPRESSION: Acute nondisplaced transverse fracture the neck of the fourth proximal phalanx per Electronically Signed: Rui Baugh MD at 8:46 EST Reading Location ID and State: [employer] / [employer] , Service support , Chest X-Ray 07/17/21 08:00 IMPRESSION: No active disease. Electronically Signed: Rui Baugh MD at 8:43 EST Reading Location ID and State: [employer] , Service support , Tibia/Fibula X-Ray 07/17/21 08:34 IMPRESSION: Acute lateral subluxation of the tibiotalar joint with fractures of the distal fibula and medial malleolus the tibia. Electronically Signed: Rui Baugh MD at 8:48 EST Reading Location ID and State: [employer] / [employer] , Service support , Ankle X-Ray 07/17/21 08:50 IMPRESSION: Interval reduction of the tibiotalar joint with improved alignment of fractures of the distal fibula and medial malleolus. Electronically Signed: Rui Baugh MD at 9:08 EST Reading Location ID and State: [employer] / [employer] , Service support ,
--- NOTE | 2021-07-17 16:18 | RAD_ITS ---
INDICATION: pain EXAMINATION/TECHNIQUE: X-RAY - LEFT XR Ankle Min 3 Views 3 VIEWS COMPARISON: None. FINDINGS: SOFT TISSUES: No soft tissue swelling or gas. No radiopaque foreign body. BONES/JOINTS: No acute fracture or subluxation.. Normal alignment. Preservation of the joint space.. No sclerotic or destructive changes observed. RAD/Ankle min 3 Views IMPRESSION: Negative. Electronically Signed: Rui Blackwell MD at 18:02 EST ,
[2021-07-17] MEDS: 0.9% Saline Lock 10 ML Syringe IV (19:59)
[2021-07-18] VITALS (8 sets, daily range): BP systolic 97–120; BP diastolic 57–83; PULSE 88–98; RESP 18–20; TEMP 36.9–37; O2SAT 92–99
[2021-07-18] MEDS: Acetaminophen 500 MG Tablet 1000 MG PO ×4 (00:04→18:06)
[2021-07-18] MEDS: KCL 20MEQ in 0.9% NS 20 MEQ/1,000 ML IV.SOLN. 125 MEQ IV ×3 (03:38→18:11)
[2021-07-18] MEDS: 0.9% Saline Lock 10 ML Syringe IV (03:38)
[2021-07-18] MEDS: Morphine 4 MG/ML Syringe IV ×2 (03:38→10:42)
[2021-07-18] MEDS: oxyCODONE 5 MG Tablet PO ×3 (05:09→20:29)
[2021-07-18] MEDS: hydrOXYzine PAM 25 MG Capsule 50 MG PO ×2 (05:09→16:17)
[2021-07-18 06:26] LABS: Absolute Lymphocyte Count 1.01 X10^3/uL (0.83-4.51); Absolute Neutrophil Count 2.4 X10^3/uL (2.0-7.7); Basophil# 0.01 X10^3/uL; Basophil% 0.3 % (0-1); Eosinophil# 0.05 X10^3/uL; Eosinophils% 1.3 % (0-5); Hematocrit 32.7 % (37-47); Hemoglobin 9.6 g/dL (12.0-15.0); Lymphocyte # 1.01 X10^3/ul (0.83-4.51); Lymphocyte % 27.1 % (19-41); Mean Corp Hgb Conc 29.4 g/dL (32-36); Mean Corpuscular Hgb 27.4 pg (27.0-32.0); Mean Corpuscular Volume 93.4 fL (81-99); Mean Platelet Vol. 10.5 fl (6.2-12.0); Monocyte# 0.28 X10^3/uL; Monocyte% 7.5 % (0-10); NRBC Flagged by Analyzer 0 % (0-5); Neutrophil # 2.37 X10^3/uL (2.7-7.7); Neutrophil % 63.5 % (47-70); Platelet Count 102 K/mm3 (150-450); RBC Distribution Width SD 47.4 fl (35.1-43.9); White Blood Count 3.7 K/mm3 (4.4-11.0)
[2021-07-18 06:50] LABS: Anion Gap 3 (5-15); BUN 10 mg/dL (7-18); BUN/Creat Ratio 10.6 RATIO (10-20); Calcium,Total 8.2 mg/dL (8.5-10.1); Chloride 110 mmol/L (98-107); Creatinine, Serum 0.94 mg/dL (0.55-1.02); EST Glomerular Filtration Rate 65 mL/min (>60); Est Glom Filt Rate - Afr Amer 78 mL/min (>60); Estimated Creatinine Clearance 62.66 ml/min; Glucose 91 mg/dL (74-106); Potassium 4.3 mmol/L (3.5-5.1); Sodium Level 136 mmol/L (136-145)
[2021-07-18] MEDS: Magnesium Chloride 64 MG Delay Rel.Tablet 128 MG PO (10:35)
[2021-07-18] MEDS: Folic Acid 1 MG Tablet PO (10:36)
[2021-07-18] MEDS: Senna/Docusate Sodium 1 Tablet 2 TABLET PO (10:42)
[2021-07-18] MEDS: Pantoprazole Sodium 40 MG Tablet PO (10:42)
--- NOTE | 2021-07-18 10:47 | PN.HOSP_ITS ---
Documented by User: Johanna Hendricks NP, ALL AROUND GEAR MACHINE OPERATOR-C 07/18/21 11:18 Subjective Subjective Patient seen and examined. Complains of 7/10 right ankle pain. Denies other symptoms or complaints. Plan for OR 07/19/21. Objective Data Objective Data Vital Signs: Vital Signs Temp Pulse Resp BP Pulse Ox 98.6 F 91 18 106/70 92 07/18/21 05:47 07/18/21 05:47 07/18/21 05:47 07/18/21 05:47 07/18/21 08:14 Oxygen Flow Rate (L/min) [9] 2 Oxygen Flow Rate (L/min) [8] 2 Oxygen Flow Rate (L/min) [7] 3 Oxygen Flow Rate (L/min) [6] 5 Oxygen Flow Rate (L/min) [5] 5 Oxygen Flow Rate (L/min) [4] 5 Oxygen Flow Rate (L/min) [3] 5 Oxygen Flow Rate (L/min) [2] 5 Oxygen Flow Rate (L/min) [1 ( 5 Initial Baseline)] Oxygen Flow Rate (L/min) 2 Oxygen Delivery Method [9] Nasal Cannula Oxygen Delivery Method [8] Nasal Cannula Oxygen Delivery Method [7] Nasal Cannula Oxygen Delivery Method [6] Nasal Cannula Oxygen Delivery Method [5] Nasal Cannula Oxygen Delivery Method [4] Nasal Cannula Oxygen Delivery Method [3] Nasal Cannula Oxygen Delivery Method [2] Nasal Cannula Oxygen Delivery Method [1 ( Nasal Cannula Initial Baseline)] Oxygen Delivery Method Nasal Cannula Weight: 248 lb 10.903 oz Body Mass Index (BMI) 38.9 Intake & Output: Intake and Output for Last 24 Hours 07/16/21 07/17/21 07/18/21 23:59 23:59 23:59 Intake Total 1105.42 / 1105.42 1258.33 / 1258.33 Output Total 1000 / 1000 1100 / 1100 Balance 105.42 / 105.42 158.33 / 158.33 Lab / Micro Data Result Diagrams: 07/18/21 06:04 07/18/21 06:04 Labs: Laboratory Results - last 24 hr 07/18/21 06:04: WBC 3.7 L, RBC 3.50 L, Hgb 9.6 L, Hct 32.7 L, MCV 93.4 D, MCH 27.4, MCHC 29.4 L D, RDW Std Deviation 47.4 H, RDW Coeff of Jaun 14.0, Plt Count 102 L, MPV 10.5, Immature Gran % (Auto) 0.300, Neut % (Auto) 63.5, Lymph % (Auto) 27.1, Dixon % (Auto) 7.5, Eos % (Auto) 1.3, Baso % (Auto) 0.3, Absolute Neuts (auto) 2.4, Absolute Lymphs (auto) 1.01, Nucleated RBC % 0 07/18/21 06:04: Sodium 136, Potassium 4.3, Chloride 110 H, Carbon Dioxide 23.0, Anion Gap 3 L, BUN 10, Creatinine 0.94, Estim Creat Clear Calc 62.66, Est GFR (MDRD) Af Amer 78, Est GFR (MDRD) Non-Af 65, BUN/Creatinine Ratio 10.6, Glucose 91, Calcium 8.2 L Radiography Diagnostic Testing: Radiology Impression Ankle X-Ray 07/17/21 16:18 IMPRESSION: Negative. Electronically Signed: Rui Blackwell MD at 18:02 EST , Physical Exam Const alert, oriented x3 and no apparent distress Orientation / Consciousness: awake, oriented to person, oriented to place and oriented to time HEENT normocephalic Mouth: dry mucous membranes Eyes PERRL, EOMs intact bilaterally and conjunctivae normal Neck no lymphadenopathy Resp normal respiratory effort and clear to auscultation bilaterally Cardio regular rate, regular rhythm and no murmurs Peripheral Pulses: pulses 2+ throughout GI normal to inspection, nondistended, normoactive bowel sounds, non-tender and non-distended Extremity normal to inspection Extremity Narrative: Right ankle in cast Skin no rashes or lesions noted Lesions: no lesions Rashes: no rashes Trauma: no lacerations or abrasions Neuro CN's II-XII intact bilaterally, no focal motor deficits, no sensory deficits noted and deep tendon reflexes 2+ bilaterally Psych mental status grossly normal and affect normal Assessment & Plan Assessment/Plan (1) Displaced trimalleolar fracture of right lower leg, initial encounter for closed fracture: PLAN: 1. Acute traumatic displaced right trimalleolar fracture-podiatry following. Plan on ORIF 07/19/21. As needed pain regimen. PT/OT. Surgical risk calculator completed and patient is slightly above average risk for surgery due to chronic comorbidities and baseline functional status. EKG on admission without ST-T changes. Patient is medically stable to proceed with OR. 2. History of recurrent falls/debility- PT/OT. Case management consult. 3. Polysubstance abuse/history of alcohol abuse-denies recent alcohol use. 4. Warnicke's encephalopathy- continue outpatient follow up. 5. Chronic hypoxia respiratory failure secondary to chronic COPD/mild intermittent asthma/bronchiectasis-continue baseline supplemental oxygen. As needed aerosols. 6. GENNARO-on BiPAP. 7. Depression/anxiety-on buspirone, fluoxetine, quetiapine. 8. Hypertension-appears stable. No longer on regimen. 9. Hyperlipidemia- continue statin. 10. GERD-continue PPI. 11. Obesity-encouraged diet and lifestyle modifications DVT prophylaxis-SCDs This patient was seen by LUCA Sanford under the supervision of Dr. Sultana. Time spent examining patient, reviewing data and subsequent management of care: 12 Minutes Documented by User: Dr. Thong Sultana MD 07/18/21 15:40 Objective Data Lab / Micro Data Result Diagrams: 07/18/21 06:04 07/18/21 06:04 Charges/Coding Addendum Addendum: Dr. Sultana: I personally reviewed the chart and examined the patient, and agree with the above findings. 60-year-old female with a history of polysubstance abuse presented to the hospital after a fall. It seems that this was a purely mechanical fall she denied feeling any lightheadedness or dizziness prior to the fall. On admission to the ER imaging studies demonstrate an acute lateral subluxation of the tibiotalar joint with fractures of the distal fibula and medial malleolus of the tibia. She is currently awaiting surgical repair and states that she is having pain in her right foot. Discussed with her the possibility of SNF discharge depending on how she does with physical therapy and Occupational Therapy. She was recently admitted with encephalopathy and there was concern for stroke, however these were resolved. Clinical time spent in all aspects of patient care activities: 15 minutes Visit Charges Inpatient E&M: 56223 Subs Hosp L2
[2021-07-18] MEDS: FLUoxetine 10 MG Capsule PO (12:11)
--- NOTE | 2021-07-18 15:25 | CASEMGMT ---
SIMON LEONARD Assessment: Face to Face with pt for initial transition planning/care coordination assessment. RN HORACIO introduced self and role at [facility], pt voices understanding and consents to assessment. Pt is A/O x4 and answers all questions appropriately at this time. Pt slow to answer and became tearful during assessment. Care providers, pharmacy, and demographics verified/updated. Admitting Dx: fall with ankle fx PCP:Ebony Moran Specialists:phillip Winkler; geri Padron [facility]erred [facility]: [facility] Prescription Benefit: yes LW/HPOA: Pt reports her is her DPOA, Seth Felder. Pt states they are . LNOK: Laura Ureña, sister Living Arrangements: Pt lives alone in a ground level apartment with no steps to enter. Pt reports her sister assists her with ADL's. Pt denies concerns at home. Transportation: Pt drives self and denies concerns with transportation. She states her sister is also available for transportation to medical appts. DME/HHC/SNF: Pt has a cane, walker and grab bars in her bathroom at home. Pt is [facility] with [facility]. She denies any SNF stays. Pt states she does not feel she can go home at co. Patient was provided a list of SNF providers including quality and resource use data and consistent with the patient?s preferred geographic region, medical needs, and insurance network. She states I thought I already went through choosing a longterm and I want the hospital. Pt states no further concerns/needs. CM to follow. Advised pt to ask CM if any further question/concerns/needs arise, voices understanding. Pt Goal: [facility] Plan: SNF, notified Arsh of pt preference for [facility].
--- NOTE | 2021-07-18 16:22 | CASEMGMT ---
Social Work Note SW received referral for SNF placement and pt's preferred provider is [facility]. SW placed a call to [facility] with TCU and provided referral. TCU is not able to accept pt. SW in to speak with pt. SW introduced self and role at [facility]. SW informed pt that TCU Cannot accept pt. SW spoke with pt regarding Medicare and Medicaid coverage and it may be better for pt to go to a SNF that can accept Medicaid. SW explained that if pt is at a SNF longer than 20 days she will be in copay days. SW informed pt that TCU doesn't accept Medicaid so pt would have a bill on day 21. SW explained that if pt goes to a SNF that takes Medicaid, she will not have a copay on day 21. Pt states that she is just overwhelmed at this time and is disappointed that TCU cannot accept pt. SW offered support to pt. Pt states that she has history of ETOH/substance abuse Hx. Pt states that she has been sober for over 100 days. SW offered much support to pt. SW informed pt that this worker will continue to follow along with her, will follow up with pt after she has surgery. RN in to room at this time. Pt is alert and orientated x3 but then states I don't golf. Then states she thought she saw a bug on the wall. Pt also states that she has completed HCPOA and it is her Seth. Pt states that she and her are now . SW to continue to follow. Plan: TBD, likely SNF Samanta Vaughan PAVILION CUTTER, SENIOR PRODUCER
--- NOTE | 2021-07-18 18:34 | NURSING ---
This nurse got a hold via phone of Seth Felder, patients that she is separted from but whom is the patients POA. Consent was given over the phone by Seth to do the ORIF and witnessed by This nurse and Kelly MONTES. Mr. Felder states that pt has a DNR bracelet someone at home but not sure where. This nurse will look into this.
[2021-07-19] VITALS (12 sets, daily range): BP systolic 114–158; BP diastolic 58–96; PULSE 81–99; RESP 14–22; TEMP 36.7–37.3; O2SAT 92–99; BMI 38.9
[2021-07-19] MEDS: Acetaminophen 500 MG Tablet 1000 MG PO ×3 (00:53→23:17)
[2021-07-19] MEDS: KCL 20MEQ in 0.9% NS 20 MEQ/1,000 ML IV.SOLN. 125 MEQ IV ×3 (02:06→20:23)
[2021-07-19 06:02] LABS: Absolute Lymphocyte Count 0.74 X10^3/uL (0.83-4.51); Absolute Neutrophil Count 2.7 X10^3/uL (2.0-7.7); Basophil# 0.01 X10^3/uL; Basophil% 0.3 % (0-1); Eosinophil# 0.03 X10^3/uL; Eosinophils% 0.8 % (0-5); Hematocrit 32.3 % (37-47); Hemoglobin 10.3 g/dL (12.0-15.0); Lymphocyte # 0.74 X10^3/ul (0.83-4.51); Lymphocyte % 19.9 % (19-41); Mean Corp Hgb Conc 31.9 g/dL (32-36); Mean Corpuscular Hgb 27.3 pg (27.0-32.0); Mean Corpuscular Volume 85.7 fL (81-99); Mean Platelet Vol. 9.4 fl (6.2-12.0); Monocyte# 0.22 X10^3/uL; Monocyte% 5.9 % (0-10); NRBC Flagged by Analyzer 0 % (0-5); Neutrophil % 72.8 % (47-70); Platelet Count 107 K/mm3 (150-450); RBC Distribution Width SD 43.3 fl (35.1-43.9); Red Blood Count 3.77 M/mm3 (4.2-5.4); White Blood Count 3.7 K/mm3 (4.4-11.0)
[2021-07-19] MEDS: oxyCODONE 5 MG Tablet PO (06:02)
[2021-07-19 06:15] LABS: Prothrombin Time (Protime)PT. 12.9 SECONDS (11.7-14.9)
[2021-07-19 06:37] LABS: Anion Gap 4 (5-15); BUN 8 mg/dL (7-18); BUN/Creat Ratio 9.6 RATIO (10-20); Calcium,Total 8.7 mg/dL (8.5-10.1); Chloride 107 mmol/L (98-107); Creatinine, Serum 0.83 mg/dL (0.55-1.02); EST Glomerular Filtration Rate 74 mL/min (>60); Est Glom Filt Rate - Afr Amer 90 mL/min (>60); Estimated Creatinine Clearance 70.97 ml/min; Glucose 88 mg/dL (74-106); Potassium 4.5 mmol/L (3.5-5.1); Sodium Level 138 mmol/L (136-145)
[2021-07-19 06:46] LABS: AST(SGOT) 20 U/L (15-37); Alanine Aminotransfer ALT/SGPT 31 U/L (13-56); Albumin, Serum 2.6 g/dL (3.2-5.0); Alkaline Phosphatase 121 U/L (45-117); Bilirubin, Direct 0.51 mg/dL (0.00-0.30); Globulin 2.9 g/dL (2.2-4.2); Protein, Total 5.5 g/dL (6.4-8.2)
[2021-07-19] MEDS: Pantoprazole Sodium 40 MG Tablet PO (08:11)
[2021-07-19] MEDS: Ondansetron 4 MG/2 ML Vial IV (08:20)
--- NOTE | 2021-07-19 10:16 | PCM.PN.HOSP ---
Documented by User: Johanna Hendricks NP, INFRASTRUCTURE ARCHITECT-C 07/19/21 10:29 Subjective Subjective Patient seen and examined. Tearful, states her ankle has been more painful overnight and this morning. States she was not able to sleep. She appears uncomfortable. Denies other symptoms or complaints. Objective Data Objective Data Vital Signs: Vital Signs Temp Pulse Resp BP Pulse Ox 98.6 F 98 14 114/76 99 07/19/21 08:40 07/19/21 08:40 07/19/21 08:40 07/19/21 08:40 07/19/21 08:40 Oxygen Flow Rate (L/min) [9] 2 Oxygen Flow Rate (L/min) [8] 2 Oxygen Flow Rate (L/min) [7] 3 Oxygen Flow Rate (L/min) [6] 5 Oxygen Flow Rate (L/min) [5] 5 Oxygen Flow Rate (L/min) [4] 5 Oxygen Flow Rate (L/min) [3] 5 Oxygen Flow Rate (L/min) [2] 5 Oxygen Flow Rate (L/min) [1 ( 5 Initial Baseline)] Oxygen Flow Rate (L/min) 2 Oxygen Delivery Method [9] Nasal Cannula Oxygen Delivery Method [8] Nasal Cannula Oxygen Delivery Method [7] Nasal Cannula Oxygen Delivery Method [6] Nasal Cannula Oxygen Delivery Method [5] Nasal Cannula Oxygen Delivery Method [4] Nasal Cannula Oxygen Delivery Method [3] Nasal Cannula Oxygen Delivery Method [2] Nasal Cannula Oxygen Delivery Method [1 ( Nasal Cannula Initial Baseline)] Oxygen Delivery Method Nasal Cannula Weight: 248 lb 10.903 oz Body Mass Index (BMI) 38.9 Intake & Output: Intake and Output for Last 24 Hours 07/17/21 07/18/21 07/19/21 23:59 23:59 23:59 Intake Total 1105.42 / 1105.42 4017.08 / 4017.08 987.5 / 987.5 Output Total 1000 / 1000 2350 / 2900 2150 / 2150 Balance 105.42 / 105.42 1667.08 / 1117.08 -1162.5 / -1162.5 Lab / Micro Data Result Diagrams: 07/19/21 05:52 07/19/21 05:52 Labs: Laboratory Results - last 24 hr 07/19/21 05:52: WBC 3.7 L, RBC 3.77 L, Hgb 10.3 L, Hct 32.3 L, MCV 85.7 D, MCH 27.3, MCHC 31.9 L D, RDW Std Deviation 43.3, RDW Coeff of Jaun 14.0, Plt Count 107 L, MPV 9.4, Immature Gran % (Auto) 0.300, Neut % (Auto) 72.8 H, Lymph % (Auto) 19.9, Jessamine % (Auto) 5.9, Eos % (Auto) 0.8, Baso % (Auto) 0.3, Absolute Neuts (auto) 2.7, Absolute Lymphs (auto) 0.74 L, Nucleated RBC % 0 07/19/21 05:52: PT 12.9, INR 1.0 07/19/21 05:52: Sodium 138, Potassium 4.5, Chloride 107, Carbon Dioxide 27.0, Anion Gap 4 L, BUN 8, Creatinine 0.83, Estim Creat Clear Calc 70.97, Est GFR (MDRD) Af Amer 90, Est GFR (MDRD) Non-Af 74, BUN/Creatinine Ratio 9.6 L, Glucose 88, Calcium 8.7 07/19/21 05:52: Total Bilirubin 1.40 H, Direct Bilirubin 0.51 H, AST 20, ALT 31, Alkaline Phosphatase 121 H, Total Protein 5.5 L, Albumin 2.6 L, Globulin 2.9 Physical Exam Const alert, oriented x3 and no apparent distress Orientation / Consciousness: awake, oriented to person, oriented to place and oriented to time HEENT normocephalic Mouth: dry mucous membranes Eyes PERRL, EOMs intact bilaterally and conjunctivae normal Neck no lymphadenopathy Resp normal respiratory effort and clear to auscultation bilaterally Cardio regular rate, regular rhythm and no murmurs Peripheral Pulses: pulses 2+ throughout GI normal to inspection, nondistended, normoactive bowel sounds, non-tender and non-distended Extremity normal to inspection Extremity Narrative: Right ankle in cast. Skin no rashes or lesions noted Lesions: no lesions Rashes: no rashes Trauma: no lacerations or abrasions Neuro CN's II-XII intact bilaterally, no focal motor deficits, no sensory deficits noted and deep tendon reflexes 2+ bilaterally Psych mental status grossly normal and affect normal Assessment & Plan Assessment/Plan (1) Displaced trimalleolar fracture of right lower leg, initial encounter for closed fracture: PLAN: 1. Acute traumatic displaced right trimalleolar fracture-podiatry following. Plan on ORIF 07/19/21. As needed pain regimen. PT/OT. Surgical risk calculator completed and patient is slightly above average risk for surgery due to chronic comorbidities and baseline functional status. EKG on admission without ST-T changes. Patient is medically stable to proceed with OR. Will likely need rehab at discharge. Case management following. 2. History of recurrent falls/debility- PT/OT. Case management consult. 3. Polysubstance abuse/history of alcohol abuse-denies recent alcohol use. 4. Warnicke's encephalopathy- continue outpatient follow up. 5. Chronic hypoxia respiratory failure secondary to chronic COPD/mild intermittent asthma/bronchiectasis-continue baseline supplemental oxygen. As needed aerosols. 6. GENNARO-on BiPAP. 7. Depression/anxiety-on buspirone, fluoxetine, quetiapine. 8. Hypertension-appears stable. No longer on regimen. 9. Hyperlipidemia- continue statin. 10. GERD-continue PPI. 11. Obesity-encouraged diet and lifestyle modifications DVT prophylaxis-SCDs This patient was seen by LUCA Sanford under the supervision of Dr. Sultana. Time spent examining patient, reviewing data and subsequent management of care: 10 Minutes Documented by User: Dr. Thong Sultana MD 07/19/21 12:55 Objective Data Lab / Micro Data Result Diagrams: 07/19/21 05:52 07/19/21 05:52 Charges/Coding Addendum Addendum: Dr. Sultana: I personally reviewed the chart and examined the patient, and agree with the above findings. 60-year-old female with a history of polysubstance abuse presented to the hospital after a fall. It seems that this was a purely mechanical fall she denied feeling any lightheadedness or dizziness prior to the fall. On admission to the ER imaging studies demonstrate an acute lateral subluxation of the tibiotalar joint with fractures of the distal fibula and medial malleolus of the tibia. She is currently awaiting surgical repair and states that she is having pain in her right foot. Discussed with her the possibility of SNF discharge depending on how she does with physical therapy and Occupational Therapy. She was recently admitted with encephalopathy and there was concern for stroke, however these were resolved. Clinical time spent in all aspects of patient care activities: 15 minutes 07/19/2021: More uncomfortable today than she seemed yesterday, did not sleep overnight because of the pain. Plan for repair this afternoon. Continues to be at her baseline in terms of mentation secondary to her Warnicke's encephalopathy. We will see how she does with PT/OT after surgery to decide on whether or not she needs placement. Clinical time spent in all aspects of patient care: 15 minutes Visit Charges Inpatient E&M: 62746 Subs Hosp L2
--- NOTE | 2021-07-19 11:26 | CASEMGMT ---
Social Work Note SW reviewed chart. HCPOA and LW are on file at [facility]. Pt states that she is from her Seth Felder but is aware that he is still her HCPOA and pt confirmed this with RN HORACIO yesterday. SW reviewed HCPOA. Seth Cohen's number is listed as [phone]. Since pt is only separeted from her , pt's HCPOA is Seth Felder. SW placed HCPOA and LW on pt's chart. Pt to have surgery today. SW to continue to follow. Samanta Vaughan REGIONAL GUIDE, LOW ALTITUDE AIR DEFENSE OFFICER
[2021-07-19] MEDS: Morphine 2 MG/ML Syringe IV (11:40)
[2021-07-19] MEDS: Lactated Ringers 1,000 ML 15 ML IV ×2 (15:00→16:00)
--- NOTE | 2021-07-19 15:20 | NURSING ---
Student charting reviewed by SIMON Shell instructor
--- NOTE | 2021-07-19 15:45 | RAD_ITS ---
STUDY: X-RAY - RIGHT ANKLE REASON FOR EXAM: Female, 60 years old. ORIF RIGHT ANKLE TECHNIQUE: 5 fluoroscopic intraoperative view(s) of the ankle. COMPARISON: Left ankle x-ray dated July 17, 2021 FINDINGS: The intraoperative images shows newly placed lateral cortical plate-screw construct of the distal one third fibula which is well placed and fixated in the distal fracture fragments. [address] in place vertically through the medial malleolus fracture fragments terminating in the distal one third tibial diaphysis. Syndesmotic tunneling tract chauncey is also seen across the distal tibia and fibula with anchoring cortical plate. The fracture fragments have been reduced. RAD/Ankle 2 Views IMPRESSION: Status post hardware fixation of the ankle Electronically Signed: Wu Agustin MD at 18:02 EST ,
--- NOTE | 2021-07-19 17:26 | RAD_ITS ---
STUDY: X-RAY - RIGHT ANKLE REASON FOR EXAM: Female, 60 years old. post op TECHNIQUE: 3 view(s) of the ankle. COMPARISON: July 17, 2021 FINDINGS: Postoperative changes ORIF of the ankle. Fracture of the medial malleolus is visualized. 2 obliquely oriented screws are in the medial malleolus. Small plate medial aspect of the distal tibial metaphysis. Lateral fibular multi hole plate and screws. Mortise joint well maintained. Soft tissues unremarkable. RAD/Ankle min 3 Views IMPRESSION: ORIF of the right ankle. Ankle in normal alignment. Electronically Signed: Kiel Regan MD at 3:31 EST Reading Location ID and State: [id number] / , Service support ,
--- NOTE | 2021-07-19 17:30 | PCM.OPRPT ---
Report of Operation Date of Procedure: 07/19/21 Pre-Operative Diagnosis: Trimalleolus right ankle fracture Post-Operative Diagnosis: Same Surgery/Procedure Performed:: Open reduction internal fixation right ankle fracture Surgeon: Josh Vazquez beauty culturist apprentice: Type of Anesthesia: General and Local Specimen's removed: None Estimated Blood Loss (mL): 10mL Description of Procedure: Indications: This is a 50 year old female who sustained a right ankle fracture. Xrays obtained, there was displaced ankle fracture. Patient elected to proceed with open reduction internal fixation of the fracture. The procedure was reviewed with her in detail. The rationale of the procedure was reviewed with her. The goals and the expectations were discussed and reviewed with her. The possible benefits vs risks and all potential complications were discussed and reviewed with the patient. The patient expressed understanding and agreement, and elected to proceed forward with the procedure. All of his questions were answered. The consent forms were reviewed with her and she freely signed it. No guarantees were given or implied. Operative Procedure: The patient was brought back to the operating room and was placed on the operating room table in the supine position. The patient was carefully secured to the operating room table with a safety belt around her waist. The patient received 900mg of IV Clindamycin for antibiotic prophylaxis. The anesthesia team gave the patient general anesthesia as well as a lower extremity popliteal block. A well padded pneumatic tourniquet was applied around the thigh. The right lower extremity was scrubbed, prepped, and draped in the usual aseptic fashion. The ight foot/ankle was elevated for 3 minutes and the thigh pneumatic tourniquet was inflated to 300mmHg. The ankle was noted to be unstable. Using a 15 blade, a skin incision was made overlying the lateral malleolus. Careful dissection was completed down to the lateral malleolus fracture. The periosteum was left intact. There was an oblique comminuted lateral malleolus fracture. The fibula was brought out to length and was rotated back to normal position, it was stabilized with a bone clamp. The fracture was fixated using rigid open reduction internal fixation technique with 1 Arthrex a titanium distal fibular plate, which was applied across the fracture site using a total of five 2.7mm locking screws distally and four 3.5mm locking screws and one 3.5mm cortical screw proximally through the plate. The clamp was removed. There fracture was reduced, very stable, and in good position. This was confirmed visually as well as using intra operative fluoroscopy. Attention was directed to the medial malleolus. A skin incision was made overlying the medial malleolus using a 15 scalpel blade. Careful blunt dissection was completed down to the medial malleolus where the fracture was identified, it was displaced and comminuted. There was soft tissue inter position between the fracture fragments. This was composed of periosteum. The periosteum was moved out from in between the fracture fragments and the medial malleolus was reduced back manually into normal position. The medial malleolus fracture site was fixated with two 3.0mm Arthrex cannulated screws and two 3.0mm Arthrex cannulated screws. There fracture was reduced, stable, and in good position. This was confirmed visually as well as using intra operative fluoroscopy. There was noted to be some mild instability of the distal syndesmosis, and the syndesmosis was reduced, and fixated using one Arthrex Tightrope and appropriately tensioned. At this time, the distal ankle syndesmosis was stressed with a bone hook as well as with dorsiflexion external rotation stress test, and it was noted be be stable with no gapping present. The posterior malleolus was intact, properly aligned, and did not need to be fixated. At this time there was noted to be excellent stability to the ankle joint, range of motion was smooth and gliding normally. There was no popping, clicking, or crepitus present. Intraoperative fluoroscopy was used to check the site and it was noted fibular length and tib fib overlap was normal, ankle mortise with medial and lateral gutters in normal position/alignment with good positioning of the plate, screws, and tight rope. There was good bone to bone alignment of the fracture sites. There was excellent stability to the ankle / fracture site. The ankle was stressed under fluoroscopy and negative anterior drawer, normal talar tilt, no medial gutter gapping with external stress test, and no gapping or instability with Cotton test as noted above. The surgical site was flushed out with copious amounts of normal saline solution. The subcutaneous tissue was reapproximated using 2-0 Vicryl, and the skin was 3-0 Nylon. A dressing was applied which consisted of Betadine soaked adaptic, 4x4 gauze, Kerlix, webril, melina bandages, and well padded below knee posterior splint w/ heel offloaded. The pneumatic tourniquet was deflated and it was noted all hemostasis was achieved. There was immediate return of vascular flow to the foot/ankle, CFT < 2 seconds, and normal temperature present. Total tourniquet time was 97 minutes. Also of note, all vital structures, including all vital neurovascular and tendon structures were properly identified, protected and retracted as necessary. The patient tolerated the above procedure well and anesthesia well with no complications. The patient was transported to the recovery room in good condition and vital signs stable. Post op orders were placed, no weightbearing right foot, keep foot elevated. Keep dressing/splint clean, dry and intact. Patient will be followed as inpatient. Grafts/Implants Used: Arthrex fibular plate and screws, arthrex tight rope Complications None
--- NOTE | 2021-07-19 18:46 | SUR.PHASEI ---
PATIENT RESPONDS TO HER NAME, BUT WHEN SHE WAKES UP SHE LOOKS CONFUSED AND STARTS FIDGETING IN THE BED TRYING TO MOVE HERSELF UP, PULLING AT HER OXYGEN TUBING AND SCRATCHING HER FACE, ARMS AND ABDOMEN. THIS NURSE HELPED HER REPOSITION HERSELF AND SHE FOLLOWED COMMANDS. SHE IMMEDIATELY GOES BACK TO SLEEP WHEN SHE IS COMFORTABLE AND SLEEPS SOUNDLY.
[2021-07-19] MEDS: Memantine Hydrochloride 5 MG Tablet PO (22:07)
[2021-07-19] MEDS: QUEtiapine 25 MG Tablet 50 MG PO (22:10)
[2021-07-19] MEDS: Benztropine Mesylate 0.5 MG TABLET PO (22:50)
[2021-07-20 00:24] VITALS: BP 125/71; PULSE 88; RESP 18; TEMP 36.6; O2SAT 95
[2021-07-20] MEDS: Morphine 2 MG/ML Syringe IV (00:29)
[2021-07-20] MEDS: oxyCODONE 5 MG Tablet PO ×4 (03:15→20:31)
[2021-07-20] MEDS: KCL 20MEQ in 0.9% NS 20 MEQ/1,000 ML IV.SOLN. 125 MEQ IV (03:24)
[2021-07-20] MEDS: Acetaminophen 500 MG Tablet 1000 MG PO ×4 (04:56→23:56)
[2021-07-20 06:33] LABS: Absolute Lymphocyte Count 0.47 X10^3/uL (0.83-4.51); Absolute Neutrophil Count 3.5 X10^3/uL (2.0-7.7); Hematocrit 30.1 % (37-47); Hemoglobin 9.9 g/dL (12.0-15.0); Lymphocyte # 0.47 X10^3/ul (0.83-4.51); Lymphocyte % 11.2 % (19-41); Mean Corp Hgb Conc 32.9 g/dL (32-36); Mean Platelet Vol. 10.1 fl (6.2-12.0); Monocyte# 0.24 X10^3/uL; Monocyte% 5.7 % (0-10); NRBC Flagged by Analyzer 0 % (0-5); Neutrophil # 3.48 X10^3/uL (2.7-7.7); Neutrophil % 82.6 % (47-70); POSITIVE DIFFERENTIAL YES; Platelet Count 123 K/mm3 (150-450); RBC Distribution Width CV 13.6 % (11.6-14.6); RBC Distribution Width SD 42.4 fl (35.1-43.9); Red Blood Count 3.54 M/mm3 (4.2-5.4); White Blood Count 4.2 K/mm3 (4.4-11.0)
[2021-07-20 06:35] LABS: Differential Indicated SCAN CRITERIA MET
[2021-07-20 06:48] LABS: Differential Comment SCANNED; Ovalocyte RARE
[2021-07-20 07:00] LABS: Anion Gap 5 (5-15); BUN 9 mg/dL (7-18); BUN/Creat Ratio 10.1 RATIO (10-20); Calcium,Total 8.8 mg/dL (8.5-10.1); Chloride 105 mmol/L (98-107); Creatinine, Serum 0.89 mg/dL (0.55-1.02); EST Glomerular Filtration Rate 69 mL/min (>60); Est Glom Filt Rate - Afr Amer 83 mL/min (>60); Estimated Creatinine Clearance 66.19 ml/min; Glucose 105 mg/dL (74-106); Potassium 4.6 mmol/L (3.5-5.1); Sodium Level 136 mmol/L (136-145)
--- NOTE | 2021-07-20 07:41 | PN_ITS ---
Subjective Subjective This 60-year-old female was ORIF trimalleolar fracture on the right side.seen for bedside. Patient denies any fever, chills, nausea, vomiting, julio calf painst pain,, shortness of breath. Patient notes some pain along the medial right ankle. patient is voiding urine and passing gas. No changes overnight. Objective Data Objective Data Vital Signs: Vital Signs Temp Pulse Resp BP Pulse Ox 97.8 F 88 18 125/71 H 95 07/20/21 00:24 07/20/21 00:24 07/20/21 00:24 07/20/21 00:24 07/20/21 00:24 Oxygen Flow Rate (L/min) [9] 2 Oxygen Flow Rate (L/min) [8] 2 Oxygen Flow Rate (L/min) [7] 3 Oxygen Flow Rate (L/min) [6] 5 Oxygen Flow Rate (L/min) [5] 5 Oxygen Flow Rate (L/min) [4] 5 Oxygen Flow Rate (L/min) [3] 5 Oxygen Flow Rate (L/min) [2] 5 Oxygen Flow Rate (L/min) [1 ( 5 Initial Baseline)] Oxygen Flow Rate (L/min) 2 Oxygen Delivery Method [9] Nasal Cannula Oxygen Delivery Method [8] Nasal Cannula Oxygen Delivery Method [7] Nasal Cannula Oxygen Delivery Method [6] Nasal Cannula Oxygen Delivery Method [5] Nasal Cannula Oxygen Delivery Method [4] Nasal Cannula Oxygen Delivery Method [3] Nasal Cannula Oxygen Delivery Method [2] Nasal Cannula Oxygen Delivery Method [1 ( Nasal Cannula Initial Baseline)] Oxygen Delivery Method Room Air Weight: 112.8 kg Body Mass Index (BMI) 38.9 Intake & Output: Intake and Output for Last 24 Hours 07/18/21 07/19/21 07/20/21 23:59 23:59 23:59 Intake Total 4017.08 / 4017.08 4213.25 / 4213.25 1231.08 / 1231.08 Output Total 2350 / 2900 5600 / 5600 1000 / 1000 Balance 1667.08 / 1117.08 -1386.75 / -1386.75 231.08 / 231.08 Lab / Micro Data Result Diagrams: 07/20/21 06:25 07/20/21 06:25 Labs: Laboratory Results - last 24 hr 07/20/21 06:25: WBC 4.2 L, RBC 3.54 L, Hgb 9.9 L, Hct 30.1 L, MCV 85.0, MCH 28.0, MCHC 32.9, RDW Std Deviation 42.4, RDW Coeff of Jaun 13.6, Plt Count 123 L, MPV 10.1, Immature Gran % (Auto) 0.500, Neut % (Auto) 82.6 H, Lymph % (Auto) 11.2 L, [place] % (Auto) 5.7, Eos % (Auto) 0.0, Baso % (Auto) 0.0, Absolute Neuts (auto) 3.5, Absolute Lymphs (auto) 0.47 L, Nucleated RBC % 0, Differential Comment SCANNED, Diff Path Review May foll, Ovalocytes RARE 07/20/21 06:25: Sodium 136, Potassium 4.6, Chloride 105, Carbon Dioxide 26.0, Anion Gap 5, BUN 9, Creatinine 0.89, Estim Creat Clear Calc 66.19, Est GFR ( RD) Af Amer 83, Est GFR (MDRD) Non-Af 69, BUN/Creatinine Ratio 10.1, Glucose 105, Calcium 8.8 Radiography Diagnostic Testing: Radiology Impression Ankle X-Ray 07/19/21 15:45 IMPRESSION: Status post hardware fixation of the ankle Electronically Signed: Wu Agustin MD at 18:02 EST Reading Location ID and State: [facility] / [place] , Service support , Ankle X-Ray 07/19/21 17:26 IMPRESSION: ORIF of the right ankle. Ankle in normal alignment. Electronically Signed: Kiel Regan MD at 3:31 EST Reading Location ID and State: [id number] / , Service support , Physical Exam Narrative Dressing intact to right lower extremity and form a posterior splint with melina wrap. There is noted to be brisk capillary fill time to digits 1 through 5 on the side. No pain with calf squeeze. Light touch protective sensation have returned to the right lower extremity despite popliteal block. Const alert, oriented x3 and no apparent distress Extremity Extremity Narrative: s/p closed reduction right ankle fracture with splint clean, dry and intact, CFT < 2 seconds to all toes and sensation intact to the toe. Left foot with superficial abrasion to dorsal distal toe with no active bleeding, otherwise no open lesions, no erythema, no fluctuance, no crepitus noted, there is POP to the 4th and 5th toes c/w fracture but not dislocated, there is some POP to the sinus tarsi of the hindfoot on the left foot, otherwise sensation intact, CFT < 2 seconds to all toes left foot. Muscle strength intact to left foot. Assessment & Plan Assessment/Plan (1) Displaced trimalleolar fracture of right lower leg, initial encounter for closed fracture: PLAN: Patient examined evaluated, all findings discussed with patient in detail. Patient will maintain nonweightbearing to the right lower extremity. She was having some pain today, pain medication adjusted. Majority of her pain is along the medial ankle along the course of the saphenous nerve which is not blocked with the popliteal. If pain worsens or increases will consider dressing change. At this time recommend physical therapy evaluation to ensure stability with postop nonweightbearing caution. I also recommend consult of case management. Patient may require recovery in nursing facility if she is unable to maintain nonweightbearing status. We will continue to follow patient daily. (2) Fracture of toe of left foot: PLAN: Evaluation performed. Reviewed right ankle xrays and left foot xrays. Discussed findings with patient. Discussed conditions and treatment options with patient. Right ankle would benefit from ORIF, patient will need to be medically cleared. Could do right ankle ORIF this Sunday. Keep right foot/ankle/leg splint clean, dry and intact. No weightbearing right foot. Keep foot elevated. Left foot - treat nonsurgically - surgical shoe with weightbearing left foot. Will order left ankle xrays. Podiatry will continue to follow, thank you for consultation.
[2021-07-20 08:00] VITALS: BP 134/92; PULSE 88; RESP 16; TEMP 36.9; O2SAT 97
[2021-07-20 08:08] VITALS: O2SAT 97
[2021-07-20] MEDS: Thiamine Hydrochloride 100 MG Tablet 50 MG PO ×2 (08:22→17:23)
[2021-07-20] MEDS: Folic Acid 1 MG Tablet PO (08:22)
[2021-07-20] MEDS: Magnesium Chloride 64 MG Delay Rel.Tablet 128 MG PO (08:22)
[2021-07-20] MEDS: Pantoprazole Sodium 40 MG Tablet PO (08:23)
[2021-07-20] MEDS: FLUoxetine 10 MG Capsule PO (08:23)
--- NOTE | 2021-07-20 11:08 | PN.HOSP_ITS ---
Documented by User: Johanna Hendricks NP, PRINTING PRESS OPERATOR APPRENTICE-C 07/20/21 11:15 Subjective Subjective Patient seen and examined. Reports pain is better controlled. Patient is tearful and states she is upset she needs to go to SNF/rehab at discharge however understands that given current circumstances, she is unsafe to go dir ectly home. Sister at bedside. Support provided. Patient denies other symptoms or complaints. Objective Data Objective Data Vital Signs: Vital Signs Temp Pulse Resp BP Pulse Ox 98.5 F 88 16 134/92 H 97 07/20/21 08:00 07/20/21 08:00 07/20/21 08:00 07/20/21 08:00 07/20/21 08:08 Oxygen Flow Rate (L/min) [9] 2 Oxygen Flow Rate (L/min) [8] 2 Oxygen Flow Rate (L/min) [7] 3 Oxygen Flow Rate (L/min) [6] 5 Oxygen Flow Rate (L/min) [5] 5 Oxygen Flow Rate (L/min) [4] 5 Oxygen Flow Rate (L/min) [3] 5 Oxygen Flow Rate (L/min) [2] 5 Oxygen Flow Rate (L/min) [1 ( 5 Initial Baseline)] Oxygen Flow Rate (L/min) 1 Oxygen Delivery Method [9] Nasal Cannula Oxygen Delivery Method [8] Nasal Cannula Oxygen Delivery Method [7] Nasal Cannula Oxygen Delivery Method [6] Nasal Cannula Oxygen Delivery Method [5] Nasal Cannula Oxygen Delivery Method [4] Nasal Cannula Oxygen Delivery Method [3] Nasal Cannula Oxygen Delivery Method [2] Nasal Cannula Oxygen Delivery Method [1 ( Nasal Cannula Initial Baseline)] Oxygen Delivery Method Nasal Cannula Weight: 248 lb 10.903 oz Body Mass Index (BMI) 38.9 Intake & Output: Intake and Output for Last 24 Hours 07/18/21 07/19/21 07/20/21 23:59 23:59 23:59 Intake Total 4017.08 / 4017.08 4213.25 / 4213.25 1231.08 / 1231.08 Output Total 2350 / 2900 5600 / 5600 1000 / 1000 Balance 1667.08 / 1117.08 -1386.75 / -1386.75 231.08 / 231.08 Lab / Micro Data Result Diagrams: 07/20/21 06:25 07/20/21 06:25 Labs: Laboratory Results - last 24 hr 07/20/21 06:25: WBC 4.2 L, RBC 3.54 L, Hgb 9.9 L, Hct 30.1 L, MCV 85.0, MCH 28.0, MCHC 32.9, RDW Std Deviation 42.4, RDW Coeff of Jaun 13.6, Plt Count 123 L, MPV 10.1, Immature Gran % (Auto) 0.500, Neut % (Auto) 82.6 H, Lymph % (Auto) 11.2 L, [place] % (Auto) 5.7, Eos % (Auto) 0.0, Baso % (Auto) 0.0, Absolute Neuts (auto) 3.5, Absolute Lymphs (auto) 0.47 L, Nucleated RBC % 0, Differential Comment SCANNED, Diff Path Review May foll, Ovalocytes RARE 07/20/21 06:25: Sodium 136, Potassium 4.6, Chloride 105, Carbon Dioxide 26.0, Anion Gap 5, BUN 9, Creatinine 0.89, Estim Creat Clear Calc 66.19, Est GFR (MDR D) Af Amer 83, Est GFR (MDRD) Non-Af 69, BUN/Creatinine Ratio 10.1, Glucose 105, Calcium 8.8 Radiography Diagnostic Testing: Radiology Impression Ankle X-Ray 07/19/21 15:45 IMPRESSION: Status post hardware fixation of the ankle Electronically Signed: Wu Agustin MD at 18:02 EST Reading Location ID and State: [facility] / [place] , Service support , Ankle X-Ray 07/19/21 17:26 IMPRESSION: ORIF of the right ankle. Ankle in normal alignment. Electronically Signed: Kiel Regan MD at 3:31 EST Reading Location ID and State: [id number] / , Service support , Physical Exam Const alert, oriented x3 and no apparent distress Orientation / Consciousness: awake, oriented to person, oriented to place and oriented to time HEENT normocephalic and moist oral mucous membranes Eyes PERRL, EOMs intact bilaterally and conjunctivae normal Neck no lymphadenopathy Resp normal respiratory effort and clear to auscultation bilaterally Cardio regular rate, regular rhythm and no murmurs Peripheral Pulses: pulses 2+ throughout GI normal to inspection, nondistended, normoactive bowel sounds, non-tender and non-distended Extremity normal to inspection Extremity Narrative: Right lower extremity in cast/postop dressing Skin no rashes or lesions noted Lesions: no lesions Rashes: no rashes Trauma: no lacerations or abrasions Neuro CN's II-XII intact bilaterally, no focal motor deficits, no sensory deficits noted and deep tendon reflexes 2+ bilaterally Psych Mood & Affect: anxious and tearful Assessment & Plan Assessment/Plan (1) Displaced trimalleolar fracture of right lower leg, initial encounter for closed fracture: PLAN: 1. Acute traumatic displaced right trimalleolar fracture-podiatry following. Underwent ORIF 07/19/21. As needed pain regimen. PT/OT. Nonweightbearing right foot. SNF for rehab pending acceptance. 2. History of recurrent falls/debility- PT/OT. Case management consult. 3. Polysubstance abuse/history of alcohol abuse-denies recent alcohol use. 4. Warnicke's encephalopathy- continue outpatient follow up. 5. Chronic hypoxia respiratory failure secondary to chronic COPD/mild intermittent asthma/bronchiectasis-continue baseline supplemental oxygen. As needed aerosols. 6. GENNARO-on BiPAP. 7. Depression/anxiety-on buspirone, fluoxetine, quetiapine. 8. Hypertension-appears stable. No longer on regimen. 9. Hyperlipidemia- continue statin. 10. GERD-continue PPI. 11. Obesity-encouraged diet and lifestyle modifications DVT prophylaxis-SCDs This patient was seen by LUCA Sanford under the supervision of Dr. Sultana. Discharge planning: SNF for rehab pending acceptance. Time spent examining patient, reviewing data and subsequent management of care: 9 Minutes Documented by User: Dr. Thong Sultana MD 07/20/21 12:18 Objective Data Lab / Micro Data Result Diagrams: 07/20/21 06:25 07/20/21 06:25 Charges/Coding Addendum Addendum: Dr. Sultana: I personally reviewed the chart and examined the patient, and agree with the above findings. 60-year-old female with a history of polysubstance abuse presented to the hospital after a fall. It seems that this was a purely mechanical fall she denied feeling any lightheadedness or dizziness prior to the fall. On admission to the ER imaging studies demonstrate an acute lateral subluxation of the tibiotalar joint with fractures of the distal fibula and medial malleolus of the tibia. She is currently awaiting surgical repair and states that she is having pain in her right foot. Discussed with her the possibility of SNF discharge depending on how she does with physical therapy and Occupational Therapy. She was recently admitted with encephalopathy and there was concern for stroke, however these were resolved. Clinical time spent in all aspects of patient care activities: 15 minutes 07/19/2021: More uncomfortable today than she seemed yesterday, did not sleep overnight because of the pain. Plan for repair this afternoon. Continues to be at her baseline in terms of mentation secondary to her Warnicke's encephalopathy. We will see how she does with PT/OT after surgery to decide on whether or not she needs placement. Clinical time spent in all aspects of patient care: 15 minutes 07/20/2021: Doing well today, pain is much improved postoperatively. Had to have a long discussion with her as to why she needed to go to a [facility] facility, sister was in the room and expressed understanding and assisted in explaining it to the patient. Given the fact that she has Warnicke's encephalopathy that was deviously diagnosed at an outside hospital given her chronic alcoholism, I do feel that it is unsafe for her to be home alone needing assistive devices for ambulation secondary to her right lower extremity fracture and repair in the setting of her baseline encephalopathy. Will discuss with social work for placement. Clinical time spent in all aspects of patient care: 20 minutes Visit Charges Inpatient E&M: 46980 Subs Hosp L2
--- NOTE | 2021-07-20 12:05 | CASEMGMT ---
Social Work Note SW in to speak with pt to confirm discharge plans. Pt is stating that she is having surgery today. SW attempted to tell pt that she had surgery yesterday, pt states that no surgery is today and became tearful. SW redirected conversation to discharge planning. SW informed pt that recommendation is SNF. Patient was provided a list of SNF providers including quality and resource use data and consistent with the patient?s preferred geographic region, medical needs, and insurance network. Pt states she will not go to [facility]. Given pt's confusion, this worker informed pt that this worker will call her HCPSHLOMO Ann to continue discussion of discharge plans. Pt states understanding. DALLAS placed a call to Seth Felder and introduced self and role at [facility]. SW discussed SNF placement with Seth. Seth states he will call pt's daughter Karely to discuss SNF placement and then call this worker back. SW then received call from pt's daughter Karely ([phone]) stating Seth told her to call this worker regarding SNF. ADLLAS reviewed list of SNF with Karely. Karely states to try [facility] first and then if they cannot accept pt to try [facility]. DALLAS explained referral process. DALLAS placed a call to Miguel at [facility] and provided referral. DALLAS faxed referral to [facility]. Plan: [facility] pending acceptance Samanta Vaughan ELECTRONIC VIDEO GAMES SERVICER, MARKETING COMMUNITY LIAISON
[2021-07-20 14:45] VITALS: BP 138/98; PULSE 99; RESP 16; TEMP 36.9; O2SAT 95
[2021-07-20] MEDS: Memantine Hydrochloride 5 MG Tablet PO (20:29)
[2021-07-20] MEDS: QUEtiapine 25 MG Tablet 50 MG PO (20:29)
[2021-07-20] MEDS: Atorvastatin Calcium 80 MG Tablet PO (20:34)
[2021-07-20 21:33] VITALS: BP 131/103; PULSE 94; RESP 18; TEMP 36.8; O2SAT 97
[2021-07-20] MEDS: Morphine 4 MG/ML Syringe IV (23:56)
[2021-07-20] MEDS: hydrOXYzine PAM 25 MG Capsule 50 MG PO (23:56)
[2021-07-21 02:34] VITALS: BP 115/52; PULSE 86; RESP 18; TEMP 36.8; O2SAT 95
[2021-07-21] MEDS: Acetaminophen 500 MG Tablet 1000 MG PO ×3 (05:12→18:30)
[2021-07-21] MEDS: oxyCODONE 5 MG Tablet PO ×3 (05:13→15:02)
[2021-07-21 07:20] VITALS: O2SAT 93
[2021-07-21 08:14] VITALS: BP 108/72; PULSE 102; RESP 18; TEMP 36.9; O2SAT 92
[2021-07-21] MEDS: Magnesium Chloride 64 MG Delay Rel.Tablet 128 MG PO (08:17)
[2021-07-21] MEDS: Pantoprazole Sodium 40 MG Tablet PO (08:17)
[2021-07-21] MEDS: FLUoxetine 10 MG Capsule PO (08:17)
[2021-07-21] MEDS: Thiamine Hydrochloride 100 MG Tablet 50 MG PO ×2 (08:17→18:30)
[2021-07-21] MEDS: Folic Acid 1 MG Tablet PO (08:18)
--- NOTE | 2021-07-21 09:35 | CASEMGMT ---
Addendum entered by Samanta Vaughan 07/21/21 11:41: SW placed another call to Miguel at [facility] and left message regarding referral. Original Note: Social Work Note SW placed a call to [facility] and left message for [facility] regarding referral. SW waiting for call back from [facility]. Plan: [facility] pending acceptance Samanta Vaughan MINI BAR ATTENDANT, INFORMATION TECHNOLOGY CONSULTANT
--- NOTE | 2021-07-21 09:47 | PN_ITS ---
Subjective Subjective This 60-year-old female was seen bedside status post right ankle ORIF, 2 days postop. Patient is voiding urine passing gas. Patient notes pain worse at her neck and groin, reports that this pain is not new and is chronic for her. She notes pain to surgical site limited to medial ankle, slightly improved from yes terday. Patient denies any fever, chills, nausea, vomiting, chest pain, calf pain, shortness of breath. No new changes overnight. Objective Data Objective Data Vital Signs: Vital Signs Temp Pulse Resp BP Pulse Ox 98.4 F 102 H 18 108/72 92 07/21/21 08:14 07/21/21 08:14 07/21/21 08:14 07/21/21 08:14 07/21/21 08:14 Oxygen Flow Rate (L/min) [9] 2 Oxygen Flow Rate (L/min) [8] 2 Oxygen Flow Rate (L/min) [7] 3 Oxygen Flow Rate (L/min) [6] 5 Oxygen Flow Rate (L/min) [5] 5 Oxygen Flow Rate (L/min) [4] 5 Oxygen Flow Rate (L/min) [3] 5 Oxygen Flow Rate (L/min) [2] 5 Oxygen Flow Rate (L/min) [1 ( 5 Initial Baseline)] Oxygen Flow Rate (L/min) 2 Oxygen Delivery Method [9] Nasal Cannula Oxygen Delivery Method [8] Nasal Cannula Oxygen Delivery Method [7] Nasal Cannula Oxygen Delivery Method [6] Nasal Cannula Oxygen Delivery Method [5] Nasal Cannula Oxygen Delivery Method [4] Nasal Cannula Oxygen Delivery Method [3] Nasal Cannula Oxygen Delivery Method [2] Nasal Cannula Oxygen Delivery Method [1 ( Nasal Cannula Initial Baseline)] Oxygen Delivery Method Room Air Weight: 112.8 kg Body Mass Index (BMI) 38.9 Intake & Output: Intake and Output for Last 24 Hours 07/19/21 07/20/21 07/21/21 23:59 23:59 23:59 Intake Total 4213.25 / 4213.25 3089.08 / 3329.08 414 / 414 Output Total 5600 / 5600 1750 / 2450 1500 / 1500 Balance -1386.75 / -1386.75 1339.08 / 879.08 -1086 / -1086 Lab / Micro Data Result Diagrams: 07/20/21 06:25 07/20/21 06:25 Physical Exam Narrative Dressing intact to right lower extremity and form a posterior splint with melina wrap. There is noted to be brisk capillary fill time to digits 1 through 5 on the side. No pain with calf squeeze. Light touch protective sensation have returned to the right lower extremity despite popliteal block. Const alert, oriented x3 and no apparent distress Extremity Extremity Narrative: s/p closed reduction right ankle fracture with splint clean, dry and intact, CFT < 2 seconds to all toes and sensation intact to the toe. Left foot with superficial abrasion to dorsal distal toe with no active bleeding, otherwise no open lesions, no erythema, no fluctuance, no crepitus noted, there is POP to the 4th and 5th toes c/w fracture but not dislocated, there is some POP to the sinus tarsi of the hindfoot on the left foot, otherwise sensation intact, CFT < 2 seconds to all toes left foot. Muscle strength intact to left foot. Assessment & Plan Assessment/Plan (1) Displaced trimalleolar fracture of right lower leg, initial encounter for closed fracture: PLAN: Patient examined evaluated, all findings discussed with patient in detail. Patient will maintain nonweightbearing to the right lower extremity. Patient awaiting discharge to SNF. Pain slightly improved today. Majority of her pain is along the medial ankle along the course of the saphenous nerve which is not blocked with the popliteal. If pain worsens or increases will consider dressing change. At this time recommend physical therapy evaluation to ensure stability with postop nonweightbearing caution. Patient stable for DC to SNF from our viewpoint, upon approval. She will follow up with us 1 week postop. At this time we will keep the dressing clean, dry, intact. As her vital signs are stable there are no signs of postoperative infection or fever. IV clindamycin DC'd. She will need to maintain nonweightbearing status to the right lower extremity, you surgical site that she would to transfer the left lower extremity. Recommend physical therapy consult for postop evaluation. We will continue to follow closely until discharge. (2) Fracture of toe of left foot:
[2021-07-21 13:13] LABS: Pathologist Review Reviewed
--- NOTE | 2021-07-21 13:47 | CASEMGMT ---
Social Work Note SW hasn't got back to this worker yet regarding referral. DALLAS went ahead and called Karely's second choice SNF [facility] and spoke with Ursula and provided referral. SW faxed referral to [facility]. Plan: SNF pending acceptance Samanta Vaughan LOCK PLATER, TIRE REPAIRER
--- NOTE | 2021-07-21 13:56 | PN.HOSP_ITS ---
Documented by User: Antonio ADEN 07/21/21 14:17 Subjective Subjective Patient is a 60-year-old female lying in bed, alert and orient x3. Patient in distress over having to discharge to longterm facility, but understands why she needs to go. Does not appear in acute distress. Objective Data Objective Data Vital Signs: Vital Signs Temp Pulse Resp BP Pulse Ox 98.4 F 102 H 18 108/72 92 07/21/21 08:14 07/21/21 08:14 07/21/21 08:14 07/21/21 08:14 07/21/21 08:14 Oxygen Flow Rate (L/min) [9] 2 Oxygen Flow Rate (L/min) [8] 2 Oxygen Flow Rate (L/min) [7] 3 Oxygen Flow Rate (L/min) [6] 5 Oxygen Flow Rate (L/min) [5] 5 Oxygen Flow Rate (L/min) [4] 5 Oxygen Flow Rate (L/min) [3] 5 Oxygen Flow Rate (L/min) [2] 5 Oxygen Flow Rate (L/min) [1 ( 5 Initial Baseline)] Oxygen Flow Rate (L/min) 2 Oxygen Delivery Method [9] Nasal Cannula Oxygen Delivery Method [8] Nasal Cannula Oxygen Delivery Method [7] Nasal Cannula Oxygen Delivery Method [6] Nasal Cannula Oxygen Delivery Method [5] Nasal Cannula Oxygen Delivery Method [4] Nasal Cannula Oxygen Delivery Method [3] Nasal Cannula Oxygen Delivery Method [2] Nasal Cannula Oxygen Delivery Method [1 ( Nasal Cannula Initial Baseline)] Oxygen Delivery Method Room Air Weight: 248 lb 10.903 oz Body Mass Index (BMI) 38.9 Intake & Output: Intake and Output for Last 24 Hours 07/19/21 07/20/21 07/21/21 23:59 23:59 23:59 Intake Total 4213.25 / 4213.25 3089.08 / 3329.08 414 / 414 Output Total 5600 / 5600 1750 / 2450 2125 / 2125 Balance -1386.75 / -1386.75 1339.08 / 879.08 -1711 / -1711 Lab / Micro Data Result Diagrams: 07/20/21 06:25 07/20/21 06:25 Labs: Laboratory Results - last 24 hr 07/20/21 06:25: Diff Path Review Reviewed Physical Exam Const alert, oriented x3 and no apparent distress HEENT head/scalp atraumatic and moist oral mucous membranes Head and Scalp: normocephalic Eyes PERRL, EOMs intact bilaterally and conjunctivae normal Neck no lymphadenopathy, supple and no JVD Resp normal respiratory effort, no retractions and no use of accessory muscles Cardio regular rate, regular rhythm and no JVD GI normal to inspection, nondistended, normoactive bowel sounds Extremity normal to inspection, full ROM and no clubbing, cyanosis or edema Skin no rashes or lesions noted Neuro CN's II-XII intact bilaterally Psych affect normal Assessment & Plan Assessment/Plan (1) Displaced trimalleolar fracture of right lower leg, initial encounter for closed fracture: (2) Fracture of toe of left foot: PLAN: Day 4 Discharge planning: Current plan is for patient to discharge to SNF. 1) right ankle trimalleolar fracture POD 2 status post ORIF of right ankle. Management per podiatry. As needed pain medication ordered. Discharge to SNF pending acceptance. 2) debility Patient has a history of recurrent falls. To be discharged to SNF for skilled rehab and therapy. 3) Warnicke's encephalopathy Continue outpatient management and follow-up. 4) GENNARO Continue BiPAP. 5) depression/anxiety Continue buspirone, fluoxetine and quetiapine. 6) HLD Continue statin. 7) GERD Continue PPI. DVT prophylaxis - SCDs Patient seen by Antonio Giron PA-C, under the supervision of Dr. Sultana. Time spent on patient care: 9 minutes. Documented by User: Dr. Thong Sultana MD 07/21/21 17:53 Objective Data Lab / Micro Data Result Diagrams: 07/20/21 06:25 07/20/21 06:25 Charges/Coding Addendum Addendum: Dr. Sultana: I personally reviewed the chart and examined the patient, and agree with the above findings. 60-year-old female with a history of polysubstance abuse pre sented to the hospital after a fall. It seems that this was a purely mechanical fall she denied feeling any lightheadedness or dizziness prior to the fall. On admission to the ER imaging studies demonstrate an acute lateral subluxation of the tibiotalar joint with fractures of the distal fibula and medial malleolus of the tibia. She is currently awaiting surgical repair and states that she is h aving pain in her right foot. Discussed with her the possibility of SNF discharge depending on how she does with physical therapy and Occupational Therapy. She was recently admitted with encephalopathy and there was concern for stroke, however these were resolved. Clinical time spent in all aspects of patient care activities: 15 minutes 07/19/2021: More uncomfortable today than she seemed yesterday, did not sleep overnight because of the pain. Plan for repair this afternoon. Continues to be at her baseline in terms of mentation secondary to her Warnicke's encephalopathy. We will see how she does with PT/OT after surgery to decide on whether or not she needs placement. Clinical time spent in all aspects of patient care: 15 minutes 07/20/2021: Doing well today, pain is much improved postoperatively. Had to have a long discussion with her as to why she needed to go to a longterm facility, sister was in the room and expressed understanding and assisted in explaining it to the patient. Given the fact that she has Warnicke's encephalopathy that was deviously diagnosed at an outside hospital given her chronic alcoholism, I do feel that it is unsafe for her to be home alone needing assistive devices for ambulation secondary to her right lower extremity fracture and repair in the setting of her baseline encephalopathy. Will discuss with social work for placement. Clinical time spent in all aspects of patient care: 20 minutes 07/21/2021: No new issues overnight, she is still struggling with the idea of having to go to a custodial, she does understand why given her Warnicke's encephalopathy and her leg that she cannot go home on her own. We are pending pre-CERT at this time. Denies any significant pain in her leg and it is being managed by the pain she has available. Clinical time spent in all aspects of patient care: 17 minutes Visit Charges Inpatient E&M: 68968 Subs Hosp L2
[2021-07-21] MEDS: Ondansetron 4 MG/2 ML Vial IV (14:54)
[2021-07-21] MEDS: 0.9% Saline Lock 10 ML Syringe IV ×2 (14:55→20:23)
[2021-07-21 14:59] VITALS: BP 146/89; PULSE 100; RESP 18; TEMP 37.3; O2SAT 88
[2021-07-21 15:00] VITALS: O2SAT 95
--- NOTE | 2021-07-21 16:10 | CASEMGMT ---
Social Work Note DALLAS received call from Ursula at [facility] stating medically they can accept pt but states that their business office is stating that pt's primary insurance is MMO and secondary insurance Medicare. Ursula states they are not in network with MMO. DALLAS asked Ursula for policy number associated with MMO as [facility] only has Medicare and Medicaid showing for pt. Policy number for MMO [id number]. DALLAS placed a call to [facility] financial department and left message for Tammy in PFS regarding pt's insurances. DALLAS placed a call then to HORACIO Mac, at [facility] to inquire if she knows anything about pt's referral as this worker has yet to hear anything from [facility]. Estefania states the last time she was updated on pt's referral was that their business office stated that pt's MMO ended 06/03/2021 but pt's Medicare is still showing that it is with MMO and not just straight Medicare. Estefania states pt would need to call Medicare to update them that pt's Medicare policy is no longer under MMO. Donna states that if pt does have MMO, they are not in network with MMO. DALLSA reviewed MMO website for SNF. There are three in [facility]. [facility], [facility] and [facility]. [facility] cannot accept pt. DALLAS placed a call to pt's daughter Karely and updated her on above information. Karely states she is going to call her Aunt Laura and put her on the other phone so this worker, Karely and Laura can all speak together. Laura is stating that she spoke with Bridgett in financial department who stated pt was no longer showing active under Seth's MMO insurance. Karely states she has Seth's new insurance cards and can email to this worker. DALLAS requested new insurance cards. DALLAS informed Karely that this worker is hoping to speak with PFS tomorrow to make sure pt's primary insurance is right and then will talk to aKrely again. DALLAS then received another call from Ursula stating she thinks they are ok to take pt, requests to speak with pt's family regarding insurance. DALLAS informed Ursula that Seth is pt's HCPOA but he has directed senior care questions to pt's daughter Karely. DALLAS provided Ursula with Karely's number. Ursula to reach out to Karely. Plan: SNF pending acceptance. DALLAS to work on confirming pt's primary insurance.[facility] to reach out to pt's daughter Karely to confirm pt's insurance. Samanta Vaughan ELECTRONIC PAGE MAKEUP SYSTEM OPERATOR, POWER CUTTING MACHINE OPERATOR
[2021-07-21] MEDS: Morphine 4 MG/ML Syringe IV (20:23)
[2021-07-21] MEDS: QUEtiapine 25 MG Tablet 50 MG PO (20:32)
[2021-07-21] MEDS: Memantine Hydrochloride 5 MG Tablet PO (20:32)
[2021-07-21] MEDS: Atorvastatin Calcium 80 MG Tablet PO (20:33)
[2021-07-21 20:45] VITALS: BP 143/88; PULSE 95; RESP 18; TEMP 36.2; O2SAT 96
--- NOTE | 2021-07-21 23:47 | NURSING ---
Patient is confused and agitated. Several attempts to reorient but unsuccessful. She called her sister but did not believe her when she told her she was in the hospital. Keeps yelling out, keeps asking to go to the hospital emergency department. She won't let staff help her toilet or change her brief. Is refusing pain medications d/t paranoia. Will update doctor and obtain new orders.
[2021-07-22 03:00] VITALS: BP 137/97; PULSE 99; RESP 18; TEMP 37.4; O2SAT 96
[2021-07-22] MEDS: Ondansetron 4 MG/2 ML Vial IV (03:35)
[2021-07-22] MEDS: hydrOXYzine PAM 25 MG Capsule 50 MG PO (03:35)
[2021-07-22] MEDS: oxyCODONE 5 MG Tablet PO ×3 (03:36→13:22)
[2021-07-22 06:08] LABS: Absolute Lymphocyte Count 0.49 X10^3/uL (0.83-4.51); Absolute Neutrophil Count 2.6 X10^3/uL (2.0-7.7); Basophil# 0.01 X10^3/uL; Basophil% 0.3 % (0-1); Eosinophil# 0.02 X10^3/uL; Eosinophils% 0.6 % (0-5); Hematocrit 31.2 % (37-47); Lymphocyte # 0.49 X10^3/ul (0.83-4.51); Lymphocyte % 14.3 % (19-41); Mean Corp Hgb Conc 32.1 g/dL (32-36); Mean Corpuscular Hgb 27.3 pg (27.0-32.0); Mean Corpuscular Volume 85.2 fL (81-99); Mean Platelet Vol. 9.6 fl (6.2-12.0); Monocyte# 0.29 X10^3/uL; Monocyte% 8.5 % (0-10); NRBC Flagged by Analyzer 0 % (0-5); Neutrophil # 2.61 X10^3/uL (2.7-7.7); POSITIVE DIFFERENTIAL YES; Platelet Count 146 K/mm3 (150-450); RBC Distribution Width CV 14.1 % (11.6-14.6); RBC Distribution Width SD 43.5 fl (35.1-43.9); Red Blood Count 3.66 M/mm3 (4.2-5.4); White Blood Count 3.4 K/mm3 (4.4-11.0)
[2021-07-22 06:13] LABS: Differential Indicated SCAN CRITERIA MET
[2021-07-22] MEDS: Acetaminophen 500 MG Tablet 1000 MG PO ×2 (06:24→11:31)
[2021-07-22 06:25] LABS: Differential Comment SCANNED; Ovalocyte RARE
[2021-07-22 06:32] LABS: Anion Gap 4 (5-15); BUN 7 mg/dL (7-18); BUN/Creat Ratio 7.7 RATIO (10-20); Calcium,Total 8.8 mg/dL (8.5-10.1); Chloride 106 mmol/L (98-107); Creatinine, Serum 0.91 mg/dL (0.55-1.02); EST Glomerular Filtration Rate 67 mL/min (>60); Est Glom Filt Rate - Afr Amer 82 mL/min (>60); Estimated Creatinine Clearance 64.73 ml/min; Glucose 131 mg/dL (74-106); Potassium 3.2 mmol/L (3.5-5.1); Sodium Level 139 mmol/L (136-145)
[2021-07-22 08:54] VITALS: BP 155/94; PULSE 96; RESP 18; TEMP 37.1; O2SAT 94
[2021-07-22] MEDS: Folic Acid 1 MG Tablet PO (09:06)
[2021-07-22] MEDS: Thiamine Hydrochloride 100 MG Tablet 50 MG PO (09:06)
[2021-07-22] MEDS: Magnesium Chloride 64 MG Delay Rel.Tablet 128 MG PO (09:07)
[2021-07-22] MEDS: Pantoprazole Sodium 40 MG Tablet PO (09:07)
[2021-07-22] MEDS: FLUoxetine 10 MG Capsule PO (09:07)
[2021-07-22] MEDS: Senna/Docusate Sodium 1 Tablet 2 TABLET PO (09:08)
--- NOTE | 2021-07-22 09:24 | CASEMGMT ---
Social Work Note DALLAS placed a call to Ursula at [facility] and left message to inquire if she has confirmed pt's insurance. DALLAS also emailed Ursula the updated MMO insurance cards from pt's daughter Karely that state pt is not active on that insurance anymore. DALLAS placed a call to [facility] PFS and left message with Tammy regarding pt's insurance. Samanta Vaughan ADVICE NURSE, FENCE SUPERVISOR
--- NOTE | 2021-07-22 10:48 | CASEMGMT ---
Social Work Note DALLAS received call from Ursula at [facility] stating she spoke with pt's daughter Karely, insurance has been confirmed. Pt can discharge to [facility] today under Medicare. DALLAS placed a call to pt's daughter Karely. Karely confirmed she spoke with Ursula at [facility] today and aware pt has been accepted to [facility]. Karely agreeable to pt going to [facility] today. DALLAS placed a call to Tammy with PFS. Tammy confirms that for financial, they are showing pt only has Medicare and Medicaid not MMO. DALLAS updated PA. Plan: [facility] skilled today Samanta Vaughan [employer]VEL ROOFER, ETHICS MANAGER
--- NOTE | 2021-07-22 10:54 | PCM.TXEXTCAR ---
Documented by User: Antonio ADEN 07/22/21 11:02 Diet 07/19/21 17:26 Diet: Regular - General Is pt able to select menu?: Yes Wound(s) left great toe: Wound Type: Nail is off RLE: Wound Type: Surgical Incision Therapies Weight Bearing: Non weight bearing Physical Therapy: Eval and Treat Occupational Therapy: Eval and Treat Problem/Diagnosis (1) Displaced trimalleolar fracture of right lower leg, initial encounter for closed fracture: Status: Acute (2) Fracture of toe of left foot: Status: Acute Allergies/Procedures Done in Hospital Allergies Penicillins Allergy (Verified 07/17/21 07:20) Hives DUST Allergy (Uncoded 07/17/21 07:20) itchy eyes SEASONAL Allergy (Uncoded 07/17/21 07:20) itchy eyes Type of Care/Length of Stay Estimated LOS: Convalescent Care Less Than 30 days Type of Care Needed: Skilled Rehab Potential: Good Prognosis: Good Additional Orders/Day of Discharge Day of Discharge: 07/22/21 Discharge Plan Admission Admit Date/Time: 07/17/21 09:13 Primary Reason for Your Visit: Fall w/ ankle fracture Attending Provider: Thong Sultana Primary Care Provider: Karl Moran Consulting Providers: Josh Vazquez Instructions Patient Instructions: Ankle Fracture ORIF Discharge Orders/Prescriptions Prescriptions: New oxycodone 5 mg Tablet 5 - 10 mg PO Q8H PRN PRN (Reason: Pain Score 4-5) 5 Days Qty: 15 RF: 0 Continued buspirone 10 mg tablet 5 mg PO TID RF: 0 pantoprazole 40 MG tablet 40 mg PO DAILY RF: 0 fluoxetine 20 mg Capsule 10 mg PO DAILY RF: 0 benztropine 0.5 mg tablet 0.5 mg PO BID PRN PRN (Reason: shaking) RF: 0 folic acid 1 mg Tablet 1 mg PO DAILY@0800 Qty: 0 RF: 0 magnesium oxide 400 mg magnesium Tablet 400 mg PO DAILY RF: 0 hydroxyzine HCl 50 mg Tablet 50 mg PO TID PRN (Reason: Itching) RF: 0 trazodone 100 mg Tablet 100 mg PO QHS RF: 0 promethazine 25 mg Tablet 25 mg PO Q8H PRN PRN (Reason: Nausea) RF: 0 quetiapine 200 mg tablet 100 mg PO QHS RF: 0 thiamine HCl (vitamin B1) [Vitamin B-1] 50 mg Tablet 50 mg PO TID RF: 0 rosuvastatin 40 mg Tablet 40 mg PO QHS RF: 0 memantine [Namenda] 5 mg Tablet 5 mg PO QPM RF: 0 rivastigmine 4.6 mg/24 hour patch 24 hour 4.6 mg transdermal DAILY RF: 0 Referrals / Follow Up: Elías Carvalho DPM [STAFF PHYSICIAN] - In 1 Week Karl Moran MD [Primary Care Provider] - Within 2 Weeks Disposition Disposition (needs filled in before D/C Order can be placed): Home, Self Care Documented by User: Dr. Thong Sultana MD 07/22/21 12:41 Allergies/Procedures Done in Hospital Allergies Penicillins Allergy (Verified 07/17/21 07:20) Hives DUST Allergy (Uncoded 07/17/21 07:20) itchy eyes SEASONAL Allergy (Uncoded 07/17/21 07:20) itchy eyes Discharge Plan Admission Admit Date/Time: 07/17/21 09:13 Primary Reason for Your Visit: Fall w/ ankle fracture Attending Provider: Thong Sultana Primary Care Provider: Karl Moran Consulting Providers: Josh Vazquez Instructions Patient Instructions: Ankle Fracture ORIF Discharge Orders/Prescriptions Prescriptions: New oxycodone 5 mg Tablet 5 - 10 mg PO Q8H PRN PRN (Reason: Pain Score 4-5) 5 Days Qty: 15 RF: 0 Continued buspirone 10 mg tablet 5 mg PO TID RF: 0 pantoprazole 40 MG tablet 40 mg PO DAILY RF: 0 fluoxetine 20 mg Capsule 10 mg PO DAILY RF: 0 benztropine 0.5 mg tablet 0.5 mg PO BID PRN PRN (Reason: shaking) RF: 0 folic acid 1 mg Tablet 1 mg PO DAILY@0800 Qty: 0 RF: 0 magnesium oxide 400 mg magnesium Tablet 400 mg PO DAILY RF: 0 hydroxyzine HCl 50 mg Tablet 50 mg PO TID PRN (Reason: Itching) RF: 0 trazodone 100 mg Tablet 100 mg PO QHS RF: 0 promethazine 25 mg Tablet 25 mg PO Q8H PRN PRN (Reason: Nausea) RF: 0 quetiapine 200 mg tablet 100 mg PO QHS RF: 0 thiamine HCl (vitamin B1) [Vitamin B-1] 50 mg Tablet 50 mg PO TID RF: 0 rosuvastatin 40 mg Tablet 40 mg PO QHS RF: 0 memantine [Namenda] 5 mg Tablet 5 mg PO QPM RF: 0 rivastigmine 4.6 mg/24 hour patch 24 hour 4.6 mg transdermal DAILY RF: 0 Referrals / Follow Up: Elías Carvalho DPM [STAFF PHYSICIAN] - In 1 Week Karl Moran MD [Primary Care Provider] - Within 2 Weeks Disposition Disposition (needs filled in before D/C Order can be placed): Home, Self Care
[2021-07-22 11:17] VITALS: O2SAT 98
[2021-07-22 12:12] VITALS: O2SAT 94
--- NOTE | 2021-07-22 12:30 | CASEMGMT ---
Addendum entered by Samanta Vaughan 07/22/21 17:44: SW called pt's daughter Karely and updated her on discharge and transportation time. Karely states understanding. SW also placed a call to pt's Seth, who is HCPOA, and updated him on discharge and transportation time to [facility]. Seth states understanding. Original Note: Social Work Note DALLAS faxed completed discharge paperwork to [facility] including transfer to extended care facility, signed medication list, any scripts, COVID test/tool, and [facility] [employer] D[place]AS completed [facility] in [employer] Original in SNF folder and copy on pt's chart. SW spoke with RN, pt to transport via cot. SW accessed trip assist and transportation arranged for 3:00pm. Transportation form completed and placed on SNF folder and copy on pt's chart. RN updated on transportation time. SW placed a call to Ursula at [facility] and updated her on transportation time. SW in to speak with pt. SW spoke with pt about SNF and how this worker has been working with pt's Seth and daughter Karely regarding SNF placement. SW informed pt that she will discharge to [facility] today at 3:00pm. Pt states ok. Plan: [facility] skilled today with Physician[facility] transporting pt via cot at 3:00pm Samanta Vaughan MSW, MANAGER FIBER
--- NOTE | 2021-07-22 13:24 | NURSING ---
Bladder scanned for 30cc. Incontinent of urine.
--- NOTE | 2021-07-22 14:12 | PCM.DC.SUM ---
Documented by User: Antonio ADEN 07/22/21 14:38 Providers Date of Admission: 07/17/21 Primary Care Physician: Dr. Karl Moran MD Consultations 07/17/21 09:12 Consult: Podiatry Routine Consulting Provider: Josh Vazquez Reason for Consult: Bimalleolar ankle fracture EMERGENT Consult: No MD Notified: Yes Date Notified: 07/17/21 Time Notified: 11:24 Method of Notification: Text Reason For Visit: FALL WITH ANKLE FRACTURE Diagnosis Discharge Diagnosis (1) Displaced trimalleolar fracture of right lower leg, initial encounter for closed fracture: Status: Acute Code(s): S82.851A - Displaced trimalleolar fracture of right lower leg, initial encounter for closed fracture (2) Fracture of toe of left foot: Status: Acute Code(s): S92.912A - Unspecified fracture of left toe(s), initial encounter for closed fracture Medications at Discharge Home Medications pantoprazole 40 mg PO DAILY 12/09/18 buspirone 10 mg tablet 5 mg PO TID tab 10/23/19 fluoxetine 10 mg PO DAILY 01/14/21 benztropine 0.5 mg PO BID PRN PRN 03/08/21 folic acid 1 mg PO DAILY@0800 #0 tab 03/09/21 magnesium oxide 400 mg PO DAILY 06/08/21 hydroxyzine HCl 50 mg PO TID PRN 06/10/21 promethazine 25 mg PO Q8H PRN PRN 06/10/21 trazodone 100 mg PO QHS 06/10/21 quetiapine 100 mg PO QHS 07/17/21 memantine [Namenda] 5 mg PO QPM 07/19/21 rosuvastatin 40 mg PO QHS 07/19/21 thiamine HCl (vitamin B1) [Vitamin B-1] 50 mg PO TID 07/19/21 oxycodone 5 - 10 mg PO Q8H PRN PRN 5 Days #15 tab 07/22/21 rivastigmine 4.6 mg TRANSDERMAL DAILY 07/22/21 Hospital Course Summary of Care Provided Minutes Spent on Discharge: 20 Hospital Course: Patient is a 60-year-old female who was admitted to [facility] on 07/17/2021 for evaluation and management of fall with right trimalleolar ankle fracture. Course and management as below. 1) right ankle trimalleolar fracture POD 3 status post ORIF of right ankle. Management per podiatry. As needed pain medication provided on discharge, patient to follow-up with podiatry within the next 2 weeks. Discharge to SNF for ongoing skilled therapy and rehab. 2) debility Patient has a history of recurrent falls. To be discharged to SNF for skilled rehab and therapy. 3) Warnicke's encephalopathy Continue outpatient management and follow-up. 4) GENNARO Continue BiPAP. 5) depression/anxiety Continue buspirone, fluoxetine and quetiapine. 6) HLD Continue statin. 7) GERD Continue PPI. DVT prophylaxis - SCDs Patient seen by Antonio Giron PA-C, under the supervision of Dr. Sultana. Time spent on patient care: 20 minutes. Physical Exam Narrative Patient is a 60-year-old female comfortably lying in bed, alert and orient x3. Although patient is appropriately alert and oriented she is still very emotional when discussing going to [facility] facility. Provider explained to patient again why she needed to go to SNF and patient was agreeable. Does not appear to be in acute distress. Const alert, oriented x3 and no apparent distress HEENT normocephalic, head/scalp atraumatic and hearing grossly normal bilaterally Eyes PERRL, EOMs intact bilaterally and conjunctivae normal Neck no lymphadenopathy, supple and no JVD Resp normal respiratory effort, no retractions and no use of accessory muscles Cardio regular rate, regular rhythm and no JVD GI normal to inspection, nondistended, normoactive bowel sounds Extremity normal to inspection, full ROM and no clubbing, cyanosis or edema Skin no rashes or lesions noted, no wounds and skin turgor normal Neuro CN's II-XII intact bilaterally Psych affect normal Weight / BMI Weight Weight: 248 lb 10.903 oz Body Mass Index (BMI) 38.9 ABG / Lab / Microbiology Data Result Diagrams: 07/22/21 06:00 07/22/21 06:00 Laboratory: Laboratory Results - last 24 hr 07/22/21 06:00: WBC 3.4 L, RBC 3.66 L, Hgb 10.0 L, Hct 31.2 L, MCV 85.2, MCH 27.3, MCHC 32.1, RDW Std Deviation 43.5, RDW Coeff of Jaun 14.1, Plt Count 146 L, MPV 9.6, Immature Gran % (Auto) 0.300, Neut % (Auto) 76.0 H, Lymph % (Auto) 14.3 L, [place] % (Auto) 8.5, Eos % (Auto) 0.6, Baso % (Auto) 0.3, Absolute Neuts (auto) 2.6, Absolute Lymphs (auto) 0.49 L, Nucleated RBC % 0, Differential Comment SCANNED, Diff Path Review May foll, Ovalocytes RARE 07/22/21 06:00: Sodium 139, Potassium 3.2 L, Chloride 106, Carbon Dioxide 29.0, Anion Gap 4 L, BUN 7, Creatinine 0.91, Estim Creat Clear Calc 64.73, Est GFR (MDRD) Af Amer 82, Est GFR (MDRD) Non-Af 67, BUN/Creatinine Ratio 7.7 L, Glucose 131 H, Calcium 8.8 Microbiology: Microbiology 07/22/21 11:25 Nasal Secretion SARS-CoV-2 Antigen (Rapid) - Final Meaningful Use Info Meaningful Use Diagnoses (Choose all that apply): None applicable Discharge Plan Admission Admit Date/Time: 07/17/21 09:13 Primary Reason for Your Visit: Fall w/ ankle fracture Attending Provider: Thong Sultana Primary Care Provider: Karl Moran Consulting Providers: Josh Vazquez Instructions Patient Instructions: Ankle Fracture ORIF Discharge Orders/Prescriptions Prescriptions: New oxycodone 5 mg Tablet 5 - 10 mg PO Q8H PRN PRN (Reason: Pain Score 4-5) 5 Days Qty: 15 RF: 0 Continued buspirone 10 mg tablet 5 mg PO TID RF: 0 pantoprazole 40 MG tablet 40 mg PO DAILY RF: 0 fluoxetine 20 mg Capsule 10 mg PO DAILY RF: 0 benztropine 0.5 mg tablet 0.5 mg PO BID PRN PRN (Reason: shaking) RF: 0 folic acid 1 mg Tablet 1 mg PO DAILY@0800 Qty: 0 RF: 0 magnesium oxide 400 mg magnesium Tablet 400 mg PO DAILY RF: 0 hydroxyzine HCl 50 mg Tablet 50 mg PO TID PRN (Reason: Itching) RF: 0 trazodone 100 mg Tablet 100 mg PO QHS RF: 0 promethazine 25 mg Tablet 25 mg PO Q8H PRN PRN (Reason: Nausea) RF: 0 quetiapine 200 mg tablet 100 mg PO QHS RF: 0 thiamine HCl (vitamin B1) [Vitamin B-1] 50 mg Tablet 50 mg PO TID RF: 0 rosuvastatin 40 mg Tablet 40 mg PO QHS RF: 0 memantine [Namenda] 5 mg Tablet 5 mg PO QPM RF: 0 rivastigmine 4.6 mg/24 hour patch 24 hour 4.6 mg transdermal DAILY RF: 0 Referrals / Follow Up: Elías Carvalho DPM [STAFF PHYSICIAN] - In 1 Week Karl Moran MD [Primary Care Provider] - Within 2 Weeks Disposition Disposition (needs filled in before D/C Order can be placed): Home, Self Care Documented by User: Dr. Thong Sultana MD 07/22/21 15:09 Providers Date of Admission: 07/17/21 Reason For Visit: FALL WITH ANKLE FRACTURE Medications at Discharge Home Medications pantoprazole 40 mg PO DAILY 12/09/18 buspirone 10 mg tablet 5 mg PO TID tab 10/23/19 fluoxetine 10 mg PO DAILY 01/14/21 benztropine 0.5 mg PO BID PRN PRN 03/08/21 folic acid 1 mg PO DAILY@0800 #0 tab 03/09/21 magnesium oxide 400 mg PO DAILY 06/08/21 hydroxyzine HCl 50 mg PO TID PRN 06/10/21 promethazine 25 mg PO Q8H PRN PRN 06/10/21 trazodone 100 mg PO QHS 06/10/21 quetiapine 100 mg PO QHS 07/17/21 memantine [Namenda] 5 mg PO QPM 07/19/21 rosuvastatin 40 mg PO QHS 07/19/21 thiamine HCl (vitamin B1) [Vitamin B-1] 50 mg PO TID 07/19/21 oxycodone 5 - 10 mg PO Q8H PRN PRN 5 Days #15 tab 07/22/21 rivastigmine 4.6 mg TRANSDERMAL DAILY 07/22/21 ABG / Lab / Microbiology Data Result Diagrams: 07/22/21 06:00 07/22/21 06:00 Discharge Plan Admission Admit Date/Time: 07/17/21 09:13 Primary Reason for Your Visit: Fall w/ ankle fracture Attending Provider: Thong Sultana Primary Care Provider: Karl Moran Consulting Providers: Josh Vazquez Instructions Patient Instructions: Ankle Fracture ORIF Discharge Orders/Prescriptions Prescriptions: New oxycodone 5 mg Tablet 5 - 10 mg PO Q8H PRN PRN (Reason: Pain Score 4-5) 5 Days Qty: 15 RF: 0 Continued buspirone 10 mg tablet 5 mg PO TID RF: 0 pantoprazole 40 MG tablet 40 mg PO DAILY RF: 0 fluoxetine 20 mg Capsule 10 mg PO DAILY RF: 0 benztropine 0.5 mg tablet 0.5 mg PO BID PRN PRN (Reason: shaking) RF: 0 folic acid 1 mg Tablet 1 mg PO DAILY@0800 Qty: 0 RF: 0 magnesium oxide 400 mg magnesium Tablet 400 mg PO DAILY RF: 0 hydroxyzine HCl 50 mg Tablet 50 mg PO TID PRN (Reason: Itching) RF: 0 trazodone 100 mg Tablet 100 mg PO QHS RF: 0 promethazine 25 mg Tablet 25 mg PO Q8H PRN PRN (Reason: Nausea) RF: 0 quetiapine 200 mg tablet 100 mg PO QHS RF: 0 thiamine HCl (vitamin B1) [Vitamin B-1] 50 mg Tablet 50 mg PO TID RF: 0 rosuvastatin 40 mg Tablet 40 mg PO QHS RF: 0 memantine [Namenda] 5 mg Tablet 5 mg PO QPM RF: 0 rivastigmine 4.6 mg/24 hour patch 24 hour 4.6 mg transdermal DAILY RF: 0 Referrals / Follow Up: Elías Carvalho DPM [STAFF PHYSICIAN] - In 1 Week Karl Moran MD [Primary Care Provider] - Within 2 Weeks Disposition Disposition (needs filled in before D/C Order can be placed): Home, Self Care Charges/Coding Addendum Addendum: Dr. Sultana: I personally reviewed the chart and examined the patient, and agree with the above findings. 60-year-old female with a history of polysubstance abuse presented to the hospital after a fall. It seems that this was a purely mechanical fall she denied feeling any lightheadedness or dizziness prior to the fall. On admission to the ER imaging studies demonstrate an acute lateral subluxation of the tibiotalar joint with fractures of the distal fibula and medial malleolus of the tibia. She is currently awaiting surgical repair and states that she is having pain in her right foot. Discussed with her the possibility of SNF discharge depending on how she does with physical therapy and Occupational Therapy. She was recently admitted with encephalopathy and there was concern for stroke, however these were resolved. Clinical time spent in all aspects of patient care activities: 15 minutes 07/19/2021: More uncomfortable today than she seemed yesterday, did not sleep overnight because of the pain. Plan for repair this afternoon. Continues to be at her baseline in terms of mentation secondary to her Warnicke's encephalopathy. We will see how she does with PT/OT after surgery to decide on whether or not she needs placement. Clinical time spent in all aspects of patient care: 15 minutes 07/20/2021: Doing well today, pain is much improved postoperatively. Had to have a long discussion with her as to why she needed to go to a [facility] facility, sister was in the room and expressed understanding and assisted in explaining it to the patient. Given the fact that she has Warnicke's encephalopathy that was deviously diagnosed at an outside hospital given her chronic alcoholism, I do feel that it is unsafe for her to be home alone needing assistive devices for ambulation secondary to her right lower extremity fracture and repair in the setting of her baseline encephalopathy. Will discuss with social work for placement. Clinical time spent in all aspects of patient care: 20 minutes 07/21/2021: No new issues overnight, she is still struggling with the idea of having to go to a group home, she does understand why given her Warnicke's encephalopathy and her leg that she cannot go home on her own. We are pending pre-CERT at this time. Denies any significant pain in her leg and it is being managed by the pain she has available. Clinical time spent in all aspects of patient care: 17 minutes 07/22/2021: Doing well today, still periodically tearful about having to go to a group home. She does complain of some right lower extremity pain. A lot of her difficulty is stemming from her Warnicke's encephalopathy. She did receive pre-CERT today go to SNF for physical therapy, will give her pain medications, and plan for discharge today. I did discuss with her the plan for discharge and she expressed understanding of the risk and benefits of going to the group home and is okay with going today. Clinical time spent in all aspects of patient care: 25 minutes Visit Charges Inpatient E&M: [id number] Disch Hosp
[2021-07-22 14:50] VITALS: BP 152/92; PULSE 96; RESP 18; TEMP 36.8; O2SAT 95
--- NOTE | 2021-07-22 15:00 | CASEMGMT ---
Social Work Note [place] updated that pt is refusing to go to SNF. SW in to speak with pt. Pt states we're not about to do this. SW asked pt what she means. Pt states were not about to go ring a bout. SW asked pt what she means. Pt states she is not going to [facility] and is going home. SW informed pt that it is not safe for her to return home. Pt states she is going home today, then asked why she couldn't stay another night in the hospital. SW informed pt that she is medically ready for discharge and pt has a safe discharge plan. Pt states something is fishy here, I am going to call the osteopathic neurologist. SW informed pt that she is going to [facility] for short term. Pt states well I am leaving here today. SW informed pt that she can leave [facility] today, go to [facility], and then return home from [facility]. Pt states ok. SW then updated that physicians is currently at [facility] and stating that pt is alert and orientated, refusing to allow them to transport pt, and because pt is alert and orientated and refusing transportation, they cannot transport pt. [place] spoke with Physician's staff stating pt has not been able to sign consents and that pt's Seth has been making medical decisions for pt and it was felt pt couldn't make own decisions. Physician's state they will need to call their licensed embalmer supervisor. SW back in to pt's room. Pt's sister Chikis is on the phone with pt. Chikis telling pt that she needs to go to [facility] to get therapy, to get stronger, so she can walk and return home. Pt now agreeable to be transported to [facility]. SW reassured pt that she is only going to [facility] for short term therapy and that it will be covered under insurance. Pt agreeable to discharge to [facility] today. Plan: [facility] skilled today with Physician's transporting pt via cot at 3:00pm Samanta Vaughan MSW, DISABILITY COORDINATOR
--- NOTE | 2021-07-22 15:40 | NURSING ---
Report called to [facility]
[2021-07-25 12:42] LABS: Pathologist Review Reviewed
== END 2021-07-22 15:34 | disposition skilled nursing facility (03) | DRG 493 ==
LOC: ED 09:28 → MS3 09:43
PROVIDERS: Anesthesiology; Nurse Practitioner Family; Podiatrist; Admitting Provider Internal Medicine; Emergency Provider Emergency Medicine; PCP Family Medicine; Visit Provider Family Medicine
PROC: 0QSG04Z Reposition Right Tibia with Internal Fixation Device, Open Approach (ICD-10-PCS; principal; 2021-07-19 14:10)
DX: S82.851A Displaced trimalleolar fracture of right lower leg, initial encounter for closed fracture (principal); J96.11 Chronic respiratory failure with hypoxia; E51.2 Wernicke's encephalopathy; D69.6 Thrombocytopenia, unspecified; E66.01 Morbid (severe) obesity due to excess calories; J44.9 Chronic obstructive pulmonary disease, unspecified; F19.19 Other psychoactive substance abuse with unspecified psychoactive substance-induced disorder; F10.20 Alcohol dependence, uncomplicated; I12.9 Hypertensive chronic kidney disease with stage 1 through stage 4 chronic kidney disease, or unspecified chronic kidney disease; N18.1 Chronic kidney disease, stage 1; W19.XXXA Unspecified fall, initial encounter; E87.6 Hypokalemia; J45.20 Mild intermittent asthma, uncomplicated; E78.5 Hyperlipidemia, unspecified; F12.90 Cannabis use, unspecified, uncomplicated; S92.502A Displaced unspecified fracture of left lesser toe(s), initial encounter for closed fracture; F17.210 Nicotine dependence, cigarettes, uncomplicated; G47.33 Obstructive sleep apnea (adult) (pediatric); K21.9 Gastro-esophageal reflux disease without esophagitis; I45.10 Unspecified right bundle-branch block; F41.8 Other specified anxiety disorders; S90.415A Abrasion, left lesser toe(s), initial encounter; Z86.79 Personal history of other diseases of the circulatory system; Z68.37 Body mass index [BMI] 37.0-37.9, adult; Z86.718 Personal history of other venous thrombosis and embolism; Z87.19 Personal history of other diseases of the digestive system; Z86.19 Personal history of other infectious and parasitic diseases; Z86.2 Personal history of diseases of the blood and blood-forming organs and certain disorders involving the immune mechanism; Z79.899 Other long term (current) drug therapy; Y93.01 Activity, walking, marching and hiking; Y92.9 Unspecified place or not applicable; Z91.81 History of falling; Z86.16 Personal history of COVID-19; R53.81 Other malaise
CPT/HCPCS: 36415; 71045; 72040; 73590; 73600; 73610; 73630; 76000; 80048; 80076; 82077; 84484; 85025; 85610; 87426; 93005; 97110; 97162; 97167; 97530; 97535; 99152; 99285; C1713; J7030; J7120; A4216; J2405

== ENCOUNTER 2021-08-03 15:48 | Outpatient (CLI) | payer MEDICARE, MEDICAID, SELFPAY ==
--- NOTE | 2021-08-03 15:52 | VDLE_ITS ---
Reason For Study: Rt Calf Pain RIGHT GSV is normal. CFV is compressible, spontaneous, phasic, competent and demonstrates normal augmentation. FV is compressible, spontaneous, phasic, competent and demonstrates normal augmentation. POP V is compressible, spontaneous, phasic, competent and demonstrates normal augmentation. T/P Trunk is compressible. PTV is compressible. RT PerV is compressible. Rt SoleusV is dilated and non compressible consistent with acute DVT. Procedure This is a venous duplex using B-mode, color flow and spectral Doppler. Exam performed in department. Patient sent to ED for treatment per Dr. Vazquez Unable to visualize calf veins mid-distal due to recent surgery/bandages. The study was technically difficult. Limited views were obtained. A preliminary report was called and/or faxed to Dr. George Alcantar. VL/Venous Duplex US, Unilateral Interpretation Summary Acute deep vein thrombosis is noted in the right soleus vein. The remainder of the right lower extremity deep venous system is patent and compressible. Valvular competence ap pears intact within the proximal deep venous system on the right . The right great saphenous vein a ppears patent and compressible segmentally. Ordering Physician: Josh Vazquez Referring Physician: Karl Moran Performed By: Nicole Hawk, RDCS, RVT
== END 2021-08-03 23:59 | disposition home or self-care (01) ==
LOC: CVS 15:49
PROVIDERS: PCP Family Medicine; Referring Provider Podiatrist; Visit Provider Podiatrist
DX: M79.661 Pain in right lower leg (principal); I82.401 Acute embolism and thrombosis of unspecified deep veins of right lower extremity; M79.89 Other specified soft tissue disorders
CPT/HCPCS: 93971

== ENCOUNTER 2021-08-03 16:42 | Emergency (ER) | payer SELFPAY ==
[2021-08-03 16:43] VITALS: BP 116/78; PULSE 103; RESP 15; TEMP 36.3; O2SAT 91; BMI 36.5
--- NOTE | 2021-08-03 17:15 | EDS_ITS ---
HPI History of Present Illness Chief Complaint: Lower Extremity Injury Informant: patient Narrative Narrative: Patient sent in from radiology department for a positive DVT study performed outpatient ordered by her surgeon. Status post right ankle surgery on the of last month for fracture. She has been immobile and nonweightbearing. No worsening dyspnea she wears chronic 2 to 3 L of oxygen due to history of bronchiectasis and pulmonary hypertension and sleep apnea. She has had superficial thrombophlebitis in the past however no deep clots previously. No history of PE. Reports history of kidney injury in the past followed by Dr. Winkler however is not seen in a while. Denies history of gastric ulcers. Patient currently at a rehab facility. She reports she is postop blood drawn yesterday as an outpatient due to possible anemia. Reports calf pain started 2 days ago. Prior similar symptoms: No PFSH PFSH Medical History Abdominal pain Abnormal liver CT Admitted to alcohol detoxification center Alcohol abuse Alcohol withdrawal Anemia Anxiety Arthritis Asthma Bronchiectasis Bronchitis Chronic renal failure Chronic renal insufficiency, stage I Colitis Colitis with rectal bleeding COPD (chronic obstructive pulmonary disease) Depression DVT (deep venous thrombosis) Endocarditis Essential (primary) hypertension Frequent falls Gastritis Gastroesophageal reflux disease History of diarrhea History of umbilical hernia HLD (hyperlipidemia) Idiopathic right ventricular dilation Leukopenia Medical marijuana use Migraine Morbid obesity GENNARO (obstructive sleep apnea) Osteoarthritis Pancytopenia Pneumonia Respiratory failure with hypoxia Respiratory insufficiency Respiratory tract infection due to COVID-19 virus Restrictive lung disease Right bundle branch block (RBBB) Right ventricular systolic dysfunction Sepsis Thrombocytopenia Home Medications pantoprazole 40 mg PO DAILY 12/09/18 [History Last Taken 01/13/21] buspirone 10 mg tablet 5 mg PO TID tab 10/23/19 [History Last Taken 01/13/21] fluoxetine 10 mg PO DAILY 01/14/21 [History Last Taken Unknown] benztropine 0.5 mg PO BID PRN PRN 03/08/21 [History Last Taken Unknown] folic acid 1 mg PO DAILY@0800 #0 tab 03/09/21 [Rx Last Taken Unknown] magnesium oxide 400 mg PO DAILY 06/08/21 [History Last Taken Unknown] hydroxyzine HCl 50 mg PO TID PRN 06/10/21 [History Last Taken Unknown] promethazine 25 mg PO Q8H PRN PRN 06/10/21 [History Last Taken Unknown] trazodone 100 mg PO QHS 06/10/21 [History Last Taken Unknown] quetiapine 100 mg PO QHS 07/17/21 [History Last Taken Unknown] memantine [Namenda] 5 mg PO QPM 07/19/21 [History Last Taken Unknown] rosuvastatin 40 mg PO QHS 07/19/21 [History Last Taken Unknown] thiamine HCl (vitamin B1) [Vitamin B-1] 50 mg PO TID 07/19/21 [History Last Taken Unknown] oxycodone 5 - 10 mg PO Q8H PRN PRN 5 Days #15 tab 07/22/21 [Rx Last Taken Unkno wn] rivastigmine 4.6 mg TRANSDERMAL DAILY 07/22/21 [History Last Taken Unknown] apixaban [Eliquis DVT-PE Treat 30D Start] 5 mg PO BID #74 tab 08/03/21 [Rx Last Taken Unknown] Allergy/AdvReac Type Severity Reaction Status Date / Time Penicillins Allergy Hives Verified 08/03/21 16:43 DUST Allergy itchy eyes Uncoded 08/03/21 16:43 SEASONAL Allergy itchy eyes Uncoded 08/03/21 16:43 Family History Father Colon cancer Mother Cancer pancreatic Surgical History History of appendectomy History of cholecystectomy History of hysterectomy History of tubal ligation Social History Smoking Status: Current every day smoker tobacco type: cigarettes Tobacco: How many years used: 25 how long ago did patient quit smokin, 0.5ppd second hand exposure: Yes alcohol intake: former year quit: 2020 substance use type: marijuana ROS ROS ED Constitutional Constitutional ED: Denies chills, fever(s) or sweats Eyes Eyes: Denies change in vision ENT ENT ED: Denies dysphagia or sore throat Cardiovascular Cardiovascular: Denies chest pain, leg edema, palpitations or racing heartbeat Respiratory/Chest Respiratory/Chest: Denies cough, dyspnea or dyspnea on exertion Gastrointestinal Gastrointestinal: Denies abdominal pain, diarrhea, nausea or vomiting Genitourinary Genitourinary ED: Denies dysuria, hematuria or urinary frequency Musculoskeletal Musculoskeletal: Reports other Details: Right calf pain. ; Denies back pain, extremity pain or neck pain Integumentary Denies rash or wounds Neurologic Neurologic: Denies headache(s), paresthesias or weakness EXAM Physical Exam Const Vital Signs: 08/03/21 16:43 Temperature 97.3 F L Temperature Source Temporal Pulse Rate 103 H Respiratory Rate 15 Blood Pressure 116/78 Blood Pressure Mean 90 Pulse Ox 91 Oxygen Delivery Method Room Air Positive well nourished and well developed Constitutional Narrative: On nasal cannula chronically. General Appearance ED: well developed and NAD HEENT Reports moist mucous membranes normocephalic and atraumatic Eyes PERRL, EOMs intact bilaterally and conjunctivae normal General Eye ED: Yes normal appearance of both eyes Neck no lymphadenopathy and supple General: Negative for tenderness Chest Wall Chest: Negative for tenderness Resp normal respiratory effort and normal air movement Effort and Inspection: symmetric chest movement; Negative for respiratory distress Cardio regular rate, regular rhythm and no murmurs Peripheral Pulses: pulses 2+ throughout GI normal to inspection, nondistended, normoactive bowel sounds and non-tender Palpation: Negative for guarding or rebound tenderness present Back/Spine no CVA tenderness and no thoracic nor lumbar tenderness Extremity Extremity Narrative: Right lower extremity short posterior splint on the leg with Erik wrap. Cap refills intact distally. Mild calf tenderness. No medial thigh tenderness. General Extremety ED: Yes edema; Negative for tenderness General Extremity: edema Neuro oriented x3 and no sensory deficits noted Sensorium / Orientation: awake and alert Skin no rashes or lesions noted and no wounds MDM MDM Lab Data Attestation: I reviewed the patient's lab results. Lab results narrative: Patient lab work on the 18 last month had a hemoglobin of 10 creatinine of 0.9 GFR of 67. He was concerned. Blood work rechecked yesterday I will obtain CBC and BMP here. However we will start her on Eliquis 10 mg first dose in the ED for her blood clot. Reviewing records notes a soleus DVT there is no upper leg DVT. Pulses were intact. We will plan to initiate treatment to be followed as an outpatient. First month prescription will be sent to the pharmacy here so we can dispense this with her. Hemoglobin returned 11.4 creatinine 1.18 GFR 50. Still within limits for treatment with Eliquis. Discussed she will likely require least 3-month treatment. She will follow-up with her doctors. Labs: Laboratory Results - last 24 hr 08/03/21 08/03/21 17:15 17:15 WBC 4.7 RBC 4.12 L Hgb 11.4 L Hct 37.2 MCV 90.3 MCH 27.7 MCHC 30.6 L RDW Std Deviation 48.8 H RDW Coeff of Jaun 15.0 H Plt Count 195 MPV 9.9 Immature Gran % (Auto) 0.400 Neut % (Auto) 73.4 H Lymph % (Auto) 20.1 [place] % (Auto) 5.1 Eos % (Auto) 0.8 Baso % (Auto) 0.2 Absolute Neuts (auto) 3.5 Absolute Lymphs (auto) 0.95 Nucleated RBC % 0 Sodium 139 Potassium 4.4 Chloride 104 Carbon Dioxide 31.0 Anion Gap 4 L BUN 15 Creatinine 1.18 H Estim Creat Clear Calc 49.92 Est GFR (MDRD) Af Amer 60 Est GFR (MDRD) Non-Af 50 L BUN/Creatinine Ratio 12.7 Glucose 124 H Calcium 9.4 Discharge Plan Triage Chief Complaint: Lower Extremity Injury ED Provider: Mohsen Melgar Dx/Rx/DC Orders Clinical Impression: Acute deep vein thrombosis (DVT) of right lower extremity, Post-operative complication, Immobility Instructions: DVT Dc Prescriptions: Dejon Babcock DVT-PE Treat 30D Start 5 mg (74 tabs) tablets,dose pack 5 mg PO BID Qty: 74 RF: 0 No Action buspirone 10 mg tablet 5 mg PO TID RF: 0 pantoprazole 40 MG tablet 40 mg PO DAILY RF: 0 fluoxetine 20 mg Capsule 10 mg PO DAILY RF: 0 benztropine 0.5 mg tablet 0.5 mg PO BID PRN PRN (Reason: shaking) RF: 0 folic acid 1 mg Tablet 1 mg PO DAILY@0800 Qty: 0 RF: 0 magnesium oxide 400 mg magnesium Tablet 400 mg PO DAILY RF: 0 hydroxyzine HCl 50 mg Tablet 50 mg PO TID PRN (Reason: Itching) RF: 0 trazodone 100 mg Tablet 100 mg PO QHS RF: 0 promethazine 25 mg Tablet 25 mg PO Q8H PRN PRN (Reason: Nausea) RF: 0 quetiapine 200 mg tablet 100 mg PO QHS RF: 0 thiamine HCl (vitamin B1) [Vitamin B-1] 50 mg Tablet 50 mg PO TID RF: 0 rosuvastatin 40 mg Tablet 40 mg PO QHS RF: 0 memantine [Namenda] 5 mg Tablet 5 mg PO QPM RF: 0 rivastigmine 4.6 mg/24 hour patch 24 hour 4.6 mg transdermal DAILY RF: 0 oxycodone 5 mg Tablet 5 - 10 mg PO Q8H PRN PRN (Reason: Pain Score 4-5) 5 Days Qty: 15 RF: 0 Primary Care Provider: Karl Moran Referrals: Karl Moran MD [Primary Care Provider] - 5-7 Days Activity Restrictions/Additional Instructions: You have a right soleus DVT. Take Eliquis as prescribed. Hemoglobin today is 11.4. Your GFR is 50 with a creatinine 1.18. Follow-up with your doctors for continued treatment. Disposition Disposition: Home, Self Care Discharge Date/Time: 08/03/21 19:10
[2021-08-03] MEDS: APIXABAN 5 MG TABLET 10 MG PO (17:17)
[2021-08-03] MEDS: oxyCODONE 5 MG Tablet 10 MG PO (17:17)
[2021-08-03 17:27] LABS: Absolute Lymphocyte Count 0.95 X10^3/uL (0.83-4.51); Absolute Neutrophil Count 3.5 X10^3/uL (2.0-7.7); Basophil# 0.01 X10^3/uL; Basophil% 0.2 % (0-1); Eosinophil# 0.04 X10^3/uL; Eosinophils% 0.8 % (0-5); Hematocrit 37.2 % (37-47); Hemoglobin 11.4 g/dL (12.0-15.0); Lymphocyte # 0.95 X10^3/ul (0.83-4.51); Lymphocyte % 20.1 % (19-41); Mean Corp Hgb Conc 30.6 g/dL (32-36); Mean Corpuscular Hgb 27.7 pg (27.0-32.0); Mean Corpuscular Volume 90.3 fL (81-99); Mean Platelet Vol. 9.9 fl (6.2-12.0); Monocyte# 0.24 X10^3/uL; Monocyte% 5.1 % (0-10); NRBC Flagged by Analyzer 0 % (0-5); Neutrophil # 3.46 X10^3/uL (2.7-7.7); Neutrophil % 73.4 % (47-70); Platelet Count 195 K/mm3 (150-450); RBC Distribution Width SD 48.8 fl (35.1-43.9); Red Blood Count 4.12 M/mm3 (4.2-5.4); White Blood Count 4.7 K/mm3 (4.4-11.0)
[2021-08-03 17:43] LABS: Anion Gap 4 (5-15); BUN 15 mg/dL (7-18); BUN/Creat Ratio 12.7 RATIO (10-20); Calcium,Total 9.4 mg/dL (8.5-10.1); Chloride 104 mmol/L (98-107); Creatinine, Serum 1.18 mg/dL (0.55-1.02); EST Glomerular Filtration Rate 50 mL/min (>60); Est Glom Filt Rate - Afr Amer 60 mL/min (>60); Estimated Creatinine Clearance 49.92 ml/min; Glucose 124 mg/dL (74-106); Potassium 4.4 mmol/L (3.5-5.1); Sodium Level 139 mmol/L (136-145)
--- NOTE | 2021-08-03 18:19 | ED.RN ---
CALLED [facility] TIMES MULTIPLE TIMES TO TRANSPORT PT BACK [facility] CALLED [facility] TO SEE IF ANY TRANSPORTATION WAS RUNNING BUT NURSE SAID THERE WAS NOT. PT NONAMBULATORY AND NON WEIGHT BEARING ON RIGHT FOOT. URIEL, [employer] SAL[employer] COUNTERPERSON, CALLED FOR AMBULATE BACK TO FACILITY. PT MADE AWARE.
== END 2021-08-03 19:10 | disposition home or self-care (01) ==
PROVIDERS: Emergency Provider Emergency Medicine; PCP Family Medicine; Visit Provider Emergency Medicine
DX: I97.89 Other postprocedural complications and disorders of the circulatory system, not elsewhere classified (principal); J44.9 Chronic obstructive pulmonary disease, unspecified; I82.401 Acute embolism and thrombosis of unspecified deep veins of right lower extremity; E66.01 Morbid (severe) obesity due to excess calories; I12.9 Hypertensive chronic kidney disease with stage 1 through stage 4 chronic kidney disease, or unspecified chronic kidney disease; F17.210 Nicotine dependence, cigarettes, uncomplicated; E78.5 Hyperlipidemia, unspecified; N18.1 Chronic kidney disease, stage 1; Z86.72 Personal history of thrombophlebitis; F41.9 Anxiety disorder, unspecified; M19.90 Unspecified osteoarthritis, unspecified site; Z87.19 Personal history of other diseases of the digestive system; F32.A Depression, unspecified; K21.9 Gastro-esophageal reflux disease without esophagitis; G47.33 Obstructive sleep apnea (adult) (pediatric); Z86.16 Personal history of COVID-19; Z86.2 Personal history of diseases of the blood and blood-forming organs and certain disorders involving the immune mechanism; Z86.19 Personal history of other infectious and parasitic diseases; Z79.899 Other long term (current) drug therapy
CPT/HCPCS: 80048; 85025; 99282

== ENCOUNTER 2021-10-15 15:53 | Emergency (ER) | payer MEDICARE, MEDICAID, SELFPAY ==
[2021-10-15 15:54] VITALS: BP 127/96; PULSE 83; RESP 16; TEMP 37.1; O2SAT 91; BMI 34.9
--- NOTE | 2021-10-15 16:01 | RAD_ITS ---
STUDY: X-RAY - RIGHT TIBIA AND FIBULA REASON FOR EXAM: Female, 60 years old. Right leg pain, fall TECHNIQUE: 2 view(s) of the tibia and fibula were obtained. COMPARISON: None. FINDINGS: Fusion hardware of the medial and lateral malleolus. Healed fracture of the proximal fibula, unchanged. Small joint effusion. The soft tissue structures are unremarkable. RAD/Tibia & Fibula 2 Views IMPRESSION: No acute fracture or malalignment. Small joint effusion. Electronically Signed: Chaim Rose MD (Brooks) at 16:54 EDT Reading Location ID and State: [facility] / [place] , Service support ,
--- NOTE | 2021-10-15 16:05 | EDS_ITS ---
HPI <MARKIE Dolan - Last Filed: 10/15/21 17:08> History of Present Illness Chief Complaint: Lower Extremity Injury Narrative Narrative: 60-year-old female had a bimalleolar fracture of her right ankle on 07/17/2021. She had ORIF by Dr. Vazquez and went to rehab at the [facility] for 3 months because she lives alone and was nonweightbearing. She states she just got home a few days ago. She is supposed to wear her boot at all times and can bear 50% weight on the right lower extremity. This morning she walked into the kitchen without her boot on, just the Erik wrap and her foot slipped and she fell. Her right ankle struck the ground. No head injury or LOC. She was unable to get up and was brought in by squad. She denies paresthesias or weakness. Denies any other injuries. [facility] <MARKIE Dolan - Last Filed: 10/15/21 17:08> [facility] Medical History Abdominal pain Abnormal liver CT Admitted to alcohol detoxification center Alcohol abuse Alcohol withdrawal Anemia Anxiety Arthritis Asthma Bronchiectasis Bronchitis Chronic renal failure Chronic renal insufficiency, stage I Colitis Colitis with rectal bleeding COPD (chronic obstructive pulmonary disease) Depression DVT (deep venous thrombosis) Endocarditis Essential (primary) hypertension Frequent falls Gastritis Gastroesophageal reflux disease History of diarrhea History of umbilical hernia HLD (hyperlipidemia) Idiopathic right ventricular dilation Leukopenia Medical marijuana use Migraine Morbid obesity GENNARO (obstructive sleep apnea) Osteoarthritis Pancytopenia Pneumonia Respiratory failure with hypoxia Respiratory insufficiency Respiratory tract infection due to COVID-19 virus Restrictive lung disease Right bundle branch block (RBBB) Right ventricular systolic dysfunction Sepsis Thrombocytopenia Home Medications pantoprazole 40 mg PO DAILY 12/09/18 [History Last Taken 01/13/21] buspirone 10 mg tablet 5 mg PO TID tab 10/23/19 [History Last Taken 01/13/21] fluoxetine 10 mg PO DAILY 01/14/21 [History Last Taken Unknown] benztropine 0.5 mg PO BID PRN PRN 03/08/21 [History Last Taken Unknown] folic acid 1 mg PO DAILY@0800 #0 tab 03/09/21 [Rx Last Taken Unknown] magnesium oxide 400 mg PO DAILY 06/08/21 [History Last Taken Unknown] hydroxyzine HCl 50 mg PO TID PRN 06/10/21 [History Last Taken Unknown] promethazine 25 mg PO Q8H PRN PRN 06/10/21 [History Last Taken Unknown] trazodone 100 mg PO QHS 06/10/21 [History Last Taken Unknown] quetiapine 100 mg PO QHS 07/17/21 [History Last Taken Unknown] memantine [Namenda] 5 mg PO QPM 07/19/21 [History Last Taken Unknown] rosuvastatin 40 mg PO QHS 07/19/21 [History Last Taken Unknown] thiamine HCl (vitamin B1) [Vitamin B-1] 50 mg PO TID 07/19/21 [History Last Taken Unknown] oxycodone 5 - 10 mg PO Q8H PRN PRN 5 Days #15 tab 07/22/21 [Rx Last Taken Unknown] rivastigmine 4.6 mg TRANSDERMAL DAILY 07/22/21 [History Last Taken Unknown] apixaban [Eliquis DVT-PE Treat 30D Start] 5 mg PO BID #74 tab 08/03/21 [Rx Last Taken Unknown] Allergy/AdvReac Type Severity Reaction Status Date / Time Penicillins Allergy Hives Verified 08/03/21 16:43 DUST Allergy itchy eyes Uncoded 08/03/21 16:43 SEASONAL Allergy itchy eyes Uncoded 08/03/21 16:43 Family History Father Colon cancer Mother Cancer pancreatic Surgical History History of appendectomy History of cholecystectomy History of hysterectomy History of tubal ligation Social History Smoking Status: Current every day smoker tobacco type: cigarettes Tobacco: How many years used: 25 how long ago did patient quit smokin, 0.5ppd second hand exposure: Yes alcohol intake: former year quit: 2020 substance use type: marijuana ROS <MARKIE Dolan - Last Filed: 10/15/21 17:08> ROS ED ROS Narrative Constitutional: Negative for fever, chills, malaise. Eyes: Negative for visual change. ENT: Negative for sore throat, ear pain, rhinorrhea. CVS: Negative for palpitations, chest pain, syncope. Respiratory: Negative for shortness of breath, cough, orthopnea. GI: Negative for abdominal pain, nausea, vomiting, diarrhea, constipation, melena, hematochezia. : Negative for dysuria, hematuria or frequency. Neuro: Negative for headache, motor/sensory dysfunction. Skin: Negative for rash, abscess, or wound. Musc: Positive for right ankle pain, trauma. Heme: Negative for easy bruising, bleeding, lymphadenopathy. EXAM <MARKIE Dolan - Last Filed: 10/15/21 17:08> Physical Exam Narrative Exam Narrative: CONST: Patient sitting in no acute distress. EYES: Normal inspection. HEAD: Head normocephalic atraumatic. NECK: Normal inspection. RESP: No respiratory distress, CTAB. CVS: Regular rate and rhythm, no murmur, no gallop. ABD: Soft and nontender, no guarding or rebound, nondistended. Back: Normal inspection, no midline spinal tenderness, no step off or crepitus. SKIN: Color normal, no rash, warm, dry, intact. EXTREMITIES: Soft tissue swelling of right ankle with tenderness over the distal tibia/lateral malleolus and dorsum of the foot. Slight bruising over the great toe. Normal sensation, 2+ DP pulse. Pelvis intact with no tenderness of the hips, knees. No tenderness of upper extremities, 2+ radial pulses. NEURO: Oriented x4. PSYCH: Normal affect. Const Vital Signs: 10/15/21 15:54 Temperature 98.8 F Temperature Source Temporal Pulse Rate 83 Respiratory Rate 16 Blood Pressure 127/96 H Blood Pressure Mean 106 Pulse Ox 91 Oxygen Delivery Method Room Air <Dr. Muna Novak MD - Last Filed: 10/15/21 18:41> Physical Exam Const Vital Signs: 10/15/21 15:54 Temperature 98.8 F Temperature Source Temporal Pulse Rate 83 Respiratory Rate 16 Blood Pressure 127/96 H Blood Pressure Mean 106 Pulse Ox 91 Oxygen Delivery Method Room Air MDM <MARKIE Dolan - Last Filed: 10/15/21 17:08> MDM MDM Narrative Medical decision making narrative: Patient with recent right ankle bimalleolar fracture s/p ORIF was not wearing her walking boot and fell and struck her right leg on the ground. She appears well nontoxic. Vital signs unremarkable. She has soft tissue swelling and tenderness over the distal tibia/ankle and dorsum of the foot. Sensation and pulses intact. No other injuries on exam. X-ray of the tibia/fibula and foot show hardware intact with no acute fracture or dislocation. Patient was advised to wear her walking boot at all times, take tylenol as needed, and follow-up with the orthopedic doctor. She has an appointment with Dr. Moran on Sunday. She was discharged in stable condition. 1. History of right ankle fracture s/p surgery 2. Right ankle pain Radiography Diagnostic Testing: Clinical Impression(s) from Imaging Studies Tibia/Fibula X-Ray 10/15/21 16:01 IMPRESSION: No acute fracture or malalignment. Small joint effusion. Electronically Signed: Chaim Rose MD (Brooks) at 16:54 EDT , Foot X-Ray 10/15/21 16:10 IMPRESSION: No demonstrated fracture or malalignment. Electronically Signed: Chaim Rose MD (Brooks) at 16:53 EDT , ED attending of right tibia/fibula and right ankle shows no fracture or malalignment, hardware intact. <Dr. Muna Novak MD - Last Filed: 10/15/21 18:41> MDM Radiography Diagnostic Testing: Clinical Impression(s) from Imaging Studies Tibia/Fibula X-Ray 10/15/21 16:01 IMPRESSION: No acute fracture or malalignment. Small joint effusion. Electronically Signed: Chaim Rose MD (Brooks) at 16:54 EDT , Foot X-Ray 10/15/21 16:10 IMPRESSION: No demonstrated fracture or malalignment. Electronically Signed: Chaim Rose MD (Brooks) at 16:53 EDT , Treatment and Re-Evaluation Narrative: Patient seen and evaluated with DESTIN. I personally interviewed and examined the patient. I was involved in all aspects of patient's orders, interpretation of results, and treatment. Patient presents secondary to right ankle pain. She had a bimalleolar ankle fracture in July requiring surgical repair. She was in a group home for rehab for the last 3 months. She was just discharged to home a few days ago. She is not supposed to be walking without her boot. This morning she got out of bed which is an Erik wrap on her ankle. She slipped and fell injuring her right ankle. She denies any other injury. Patient sitting upright in bed no acute distress. Head and neck examination unremarkable. Heart is regular rate and rhythm. Lung sounds are clear. Abdomen is soft and nontender. Right lower extremity examination reveals well-healed surgical incisions. She has diffuse tenderness throughout the right ankle. No deformity noted. No significant edema. Strong distal pulses noted with normal cap refill. X-rays of the right tib-fib and right foot per my interpretation reveal hardware to be intact with no acute fracture. Test results discussed with the patient. She is to wear her walking boot. She will follow-up with Dr. Vazquez. Discharge Plan Triage Chief Complaint: Lower Extremity Injury ED Midlevel Provider: Airam Rocha ED Provider: Muna Novak Dx/Rx/DC Orders Clinical Impression: Acute right ankle pain Instructions: ED Ankle Fracture, Distal Fibula Prescriptions: No Action buspirone 10 mg tablet 5 mg PO TID RF: 0 pantoprazole 40 MG tablet 40 mg PO DAILY RF: 0 fluoxetine 20 mg Capsule 10 mg PO DAILY RF: 0 benztropine 0.5 mg tablet 0.5 mg PO BID PRN PRN (Reason: shaking) RF: 0 folic acid 1 mg Tablet 1 mg PO DAILY@0800 Qty: 0 RF: 0 magnesium oxide 400 mg magnesium Tablet 400 mg PO DAILY RF: 0 hydroxyzine HCl 50 mg Tablet 50 mg PO TID PRN (Reason: Itching) RF: 0 trazodone 100 mg Tablet 100 mg PO QHS RF: 0 promethazine 25 mg Tablet 25 mg PO Q8H PRN PRN (Reason: Nausea) RF: 0 quetiapine 200 mg tablet 100 mg PO QHS RF: 0 thiamine HCl (vitamin B1) [Vitamin B-1] 50 mg Tablet 50 mg PO TID RF: 0 rosuvastatin 40 mg Tablet 40 mg PO QHS RF: 0 memantine [Namenda] 5 mg Tablet 5 mg PO QPM RF: 0 rivastigmine 4.6 mg/24 hour patch 24 hour 4.6 mg transdermal DAILY RF: 0 oxycodone 5 mg Tablet 5 - 10 mg PO Q8H PRN PRN (Reason: Pain Score 4-5) 5 Days Qty: 15 RF: 0 Eliquis DVT-PE Treat 30D Start 5 mg (74 tabs) tablets,dose pack 5 mg PO BID Qty: 74 RF: 0 Primary Care Provider: Karl Moran Referrals: Karl Moran MD [Primary Care Provider] - Activity Restrictions/Additional Instructions: X-rays show your hardware is intact. Please wear your walking boot at all times and follow the instructions from the orthopedic doctor and follow-up with them. Disposition Disposition: Home, Self Care Discharge Date/Time: 10/15/21 17:24
--- NOTE | 2021-10-15 16:10 | RAD_ITS ---
STUDY: X-RAY - RIGHT FOOT CLINICAL: Female, 60 years old. Injury/Pain TECHNIQUE: 3 view(s) of the foot. COMPARISON: None. FINDINGS: Diffuse osteopenia. Calcaneal spur. Fusion hardware of the distal tibia and fibula. Normal visualized subtalar, talonavicular, calcaneocuboid, tarsal and tarsometatarsal articulations. Normal metatarsi. There is degenerative arthrosis of the metatarsophalangeal joint of the hallux . Normal tibial and fibular sesamoid bones. Normal interphalangeal joint of the great toe. Normal phalanges of the great toe. Normal second through fifth metatarsophalangeal joints. Normal interphalangeal joints and phalanges of the lesser toes. The soft tissue structures are unremarkable. RAD/Foot min 3 Views IMPRESSION: No demonstrated fracture or malalignment. Electronically Signed: Chaim Rose MD (Brooks) at 16:53 EDT ,
[2021-10-15] MEDS: Ondansetron ODT 4 MG Tablet PO (16:13)
[2021-10-15] MEDS: oxyCODONE 5 MG Tablet PO (16:13)
--- NOTE | 2021-10-15 17:16 | ED.RN ---
Patient with MARKIE Alegria at bedside discussing discharge planning. Patient asking for Oxy for a week or at least 3 days. Airam states she cannot prescribe Oxy due to Narcan being filled recently. Patient states she has an alcohol problem and not a pain med problem. Patient upset and wants to report this problem. Patient right lower leg wrapped in stockette and melina wrap. Patients boot has also been reapplied. Patient with assistance was able to stand and pivot to wheelchair.
== END 2021-10-15 17:24 | disposition home or self-care (01) ==
PROVIDERS: Emergency Provider Emergency Medicine; PCP Family Medicine; Visit Provider Emergency Medicine
DX: M25.571 Pain in right ankle and joints of right foot (principal); J44.9 Chronic obstructive pulmonary disease, unspecified; E66.01 Morbid (severe) obesity due to excess calories; I12.9 Hypertensive chronic kidney disease with stage 1 through stage 4 chronic kidney disease, or unspecified chronic kidney disease; E78.5 Hyperlipidemia, unspecified; F17.210 Nicotine dependence, cigarettes, uncomplicated; N18.1 Chronic kidney disease, stage 1; W01.0XXA Fall on same level from slipping, tripping and stumbling without subsequent striking against object, initial encounter; F32.A Depression, unspecified; F41.9 Anxiety disorder, unspecified; M19.90 Unspecified osteoarthritis, unspecified site; Z87.19 Personal history of other diseases of the digestive system; Z86.718 Personal history of other venous thrombosis and embolism; G47.33 Obstructive sleep apnea (adult) (pediatric); Z86.2 Personal history of diseases of the blood and blood-forming organs and certain disorders involving the immune mechanism; Z79.899 Other long term (current) drug therapy; Z79.01 Long term (current) use of anticoagulants; Z98.890 Other specified postprocedural states; Z68.34 Body mass index [BMI] 34.0-34.9, adult
CPT/HCPCS: 73590; 73630; 99284

== ENCOUNTER 2021-12-29 18:07 | Inpatient (IN) | payer MEDICARE, MEDICAID, SELFPAY ==
[2021-12-29] VITALS (7 sets, daily range): BP systolic 86–96; BP diastolic 44–72; PULSE 54–104; RESP 12–18; TEMP 36.3–36.7; O2SAT 98; BMI 33.0; BMI 32.3
--- NOTE | 2021-12-29 18:20 | CT_ITS ---
INDICATION: Impaired orientation EXAMINATION: CT BRAIN - CT Head or Brain W/O Contrast Injection TECHNIQUE: Multiple axial images were obtained of the head without intravenous contrast. A radiation dose optimization technique was used for this scan. IV Contrast dosage and agent: None. COMPARISON: Unenhanced CT head 03/02/2021 and 06/08/2021 FINDINGS: BRAIN PARENCHYMA: No intra- or extra-axial hemorrhage. No intracranial mass or mass effect. Denis/white matter differentiation is maintained and there is no blurring of the basal ganglia. There is no hyperdense vessel. Posterior fossa structures are unremarkable. CSF SPACES: Appropriate for age. No hydrocephalus. Basal cisterns are patent. CALVARIUM, SKULL BASE, PARANASAL SINUSES AND MASTOID AIR CELLS: Trace layering fluid in the sphenoid sinus of questionable clinical significance. Paranasal sinuses, mastoid air cells and middle ears are otherwise clear. Intact calvarium and skull base. No discrete lytic or blastic abnormalities. ORBITS: Both globes, extraocular muscles, optic nerves and retrobulbar fat appear unremarkable. ASPECTS Score for Acute Strokes: 10 CT/Brain/Head without Contrast IMPRESSION: Negative Brain CT without contrast. Electronically Signed: Manjit Collier DO at 20:14 EDT ,
--- NOTE | 2021-12-29 18:23 | EDS_ITS ---
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 She has not had an alcoholic beverage since the end of last year. She was brought to the emergency room by her family because she is confused, not caring for self (he has not bathed in 2.5 weeks and is not cleaning her house), apparently has not been eating well as well. She was seen recently for a foot fracture. Family was primary informant. They do not live with her. They agree that she looks pale. Patient denies almost everything other than past history of drinking. Family nor patient know if she has been taking her medicine properly. Prior similar symptoms: Yes Recent Illness/Hospitalization: No PFSH PFS Medical History (Updated 12/29/21 @ 20:[address] Junior Salter MD) Abdominal pain Abnormal liver CT Admitted to alcohol detoxification center Alcohol abuse Alcohol withdrawal Anemia Anxiety Arthritis Asthma BiPAP (biphasic positive airway pressure) dependence Bronchiectasis Bronchitis Chronic renal failure Chronic renal insufficiency, stage I Colitis Colitis with rectal bleeding COPD (chronic obstructive pulmonary disease) Dementia Depression DVT (deep venous thrombosis) Endocarditis Essential (primary) hypertension Former smoker Frequent falls Gastritis Gastroesophageal reflux disease History of diarrhea History of umbilical hernia HLD (hyperlipidemia) Hypertension Idiopathic right ventricular dilation Kidney disease Leukopenia Medical marijuana use Migraine Morbid obesity On home oxygen therapy GENNARO (obstructive sleep apnea) Osteoarthritis Pancytopenia Pneumonia Respiratory failure with hypoxia Respiratory insufficiency Respiratory tract infection due to COVID-19 virus Restrictive lung disease Right bundle branch block (RBBB) Right ventricular systolic dysfunction Sepsis Sleep apnea Substance abuse Thrombocytopenia Home Medications pantoprazole 40 mg tablet,delayed release 40 mg PO DAILY acid reflux 12/09/18 [History Last Taken 12/28/21] fluoxetine 20 mg capsule 20 mg PO DAILY anxiety 01/14/21 [History Last Taken 12/28/21] benztropine 0.5 mg tablet 0.5 mg PO BID PRN PRN shaking 03/08/21 [History Last Taken 12/29/21] magnesium oxide 400 mg PO DAILY supplement 06/08/21 [History Last Taken 12/29/21] hydroxyzine HCl 50 mg tablet 50 mg PO TID PRN PRN Itching 06/10/21 [History Last Taken Unknown] promethazine 25 mg tablet 25 mg PO Q8H PRN PRN Nausea 06/10/21 [History Last Taken Unknown] trazodone 100 mg tablet 100 mg PO QHS sleep 06/10/21 [History Last Taken 12/28/21] quetiapine 200 mg tablet 100 mg PO QHS mood 07/17/21 [History Last Taken 12/28/21] memantine 5 mg tablet (Namenda) 5 mg PO QPM memory 07/19/21 [History Last Taken 12/28/21] rosuvastatin 40 mg tablet 40 mg PO QHS cholesterol 07/19/21 [History Last Taken 12/28/21] thiamine HCl (vitamin B1) 50 mg tablet (Vitamin B-1) 50 mg PO TID supplement 07/19/21 [History Last Taken 12/28/21] clonidine HCl 0.1 mg tablet 0.1 mg PO BID bp 12/29/21 [History Last Taken 12/29/21] folic acid 1 mg tablet 1 mg PO DAILY@0800 supplement 12/29/21 [History Last Taken Unknown] potassium chloride 40 mEq/15 mL oral liquid 15 ml PO DAILY Supplement 12/29/21 [History Last Taken 12/29/21] Allergy/AdvReac Type Severity Reaction Status Date / Time Penicillins Allergy Hives Verified 08/03/21 16:43 DUST Allergy itchy eyes Uncoded 08/03/21 16:43 SEASONAL Allergy itchy eyes Uncoded 08/03/21 16:43 Family History Father Colon cancer Mother Cancer pancreatic Surgical History History of appendectomy History of cholecystectomy History of hysterectomy History of tubal ligation Social History (Updated 12/29/21 @ 18:[address] Junior Salter MD) household members: none Smoking Status: Former smoker Tobacco: How many years used: 25 how long ago did patient quit smokin, 0.5ppd second hand exposure: Yes alcohol intake: former year quit: 2020 substance use type: marijuana ROS ROS ED Review of Systems ROS Unobtainable: due to mental status Neurologic Neurologic: Reports weakness Psychiatric Psychiatric: Reports depression; Denies suicidal ideation Hematologic/Lymphatic Hematologic/Lymphatic: Reports easy bruising EXAM Physical Exam Const Vital Signs: 12/29/21 18:10 12/29/21 18:12 Temperature 97.7 F L 97.7 F L Temperature Source Temporal Temporal Pulse Rate 104 H 104 H Respiratory Rate 18 18 Blood Pressure 86/44 L 86/44 L Blood Pressure Mean 58 58 Positive well nourished, well developed, obese and unkempt Constitutional Narrative: Patient appears pale. General Appearance ED: unkempt, well developed, NAD and pallor; Negative for cyanotic or diaphoretic Nutritional Appearance: obese HEENT Reports dry mucous membranes HEENT Narrative: Nares patent. Ears normal. TMs normal. Mucosa is dry. Uvula is midline. Gums appear pale. Head is atraumatic normocephalic. Mouth ED: Yes dry mucous membranes Mouth: dry mucous membranes Eyes PERRL and EOMs intact bilaterally General Eye ED: Yes pale conjunctiva; Negative for scleral icterus Neck no lymphadenopathy, supple and no JVD Chest Wall inspection of chest normal and palpation of chest normal Resp normal respiratory effort and clear to auscultation bilaterally Cardio regular rhythm, S1 normal heart sound, S2 normal heart sound and no murmurs Rate: tachycardic GI normal to inspection, nondistended, normoactive bowel sounds, non-tender and non-distended; Negative for hepatosplenomegaly Palpation: soft Back/Spine no CVA tenderness Thoracic Spine / Upper Back: Negative for thoracic spinal tenderness Lumbar Spine / Lower Back: Negative for lumbar spinal tenderness Extremity normal to inspection General Extremety ED: Negative for edema or tenderness General Extremity: Negative for edema Neuro No oriented x3, CN's II-XII intact bilaterally and no sensory deficits noted Sensorium / Orientation: orientation impaired; Negative for alert Motor Exam: strength 5/5 throughout Psych Psych Narrative: Patient has a depressed affect. Patient laughed inappropriately and at times begins to cry. Appearance: unkempt Skin General Skin Exam: pallor; Negative for jaundice Lesions: No lesion noted Rashes: No rashes noted Trauma: Negative for abrasion MDM MDM MDM Narrative Medical decision making narrative: Patient with altered mental status which may be due to dementia due to alcohol abuse versus encephalopathy due to metabolic or infectious cause. Since patient does have history of alcoholic liver disease need to evaluate for hepatic encephalopathy. Will obtain UA to rule out urinary tract infection. Also need to rule out hypothyroidism. Lab Data Attestation: I reviewed the patient's lab results. Lab results narrative: Patient is neutropenic with a white count of 4.0 thousand. Differential is normal. H&H is normal. Nares normal. Kat is normal. Comprehensive metabolic panel is marked for potassium of 2.7 BUN is 8 with a creatinine of 1.7 6. Creatinine is higher than baseline. Alkaline phosphatase is slightly elevated 198. Calcium is normal. Total bili is 1.7. Labs: Laboratory Results - last 24 hr 12/29/21 12/29/21 12/29/21 17:46 18:30 18:30 WBC 4.0 L RBC 4.84 Hgb 12.6 Hct 39.8 MCV 82.2 MCH 26.0 L MCHC 31.7 L RDW Std Deviation 43.3 RDW Coeff of Jaun 14.5 Plt Count 115 L MPV 10.5 Immature Gran % (Auto) 0.300 Neut % (Auto) 69.3 Lymph % (Auto) 24.5 [place] % (Auto) 4.8 Eos % (Auto) 0.8 Baso % (Auto) 0.3 Absolute Neuts (auto) 2.8 Absolute Lymphs (auto) 0.98 Nucleated RBC % 0 PT 13.8 INR 1.1 Sodium Potassium Chloride Carbon Dioxide Anion Gap BUN Creatinine Estim Creat Clear Calc Est GFR (MDRD) Af Amer Est GFR (MDRD) Non-Af BUN/Creatinine Ratio Glucose Calcium Total Bilirubin Direct Bilirubin AST ALT Alkaline Phosphatase Ammonia 19.0 Total Protein Albumin Globulin TSH Urine Color Urine Clarity Urine pH Ur Specific [place] Urine Protein Urine Glucose (UA) Urine Ketones Urine Occult Blood Urine Nitrite Urine Bilirubin Urine Urobilinogen Ur Leukocyte Esterase Urine RBC Urine WBC Ur Squamous Epith Cells Urine Bacteria Urine Mucus 12/29/21 12/29/21 18:30 19:35 WBC RBC Hgb Hct MCV MCH MCHC RDW Std Deviation RDW Coeff of Jaun Plt Count MPV Immature Gran % (Auto) Neut % (Auto) Lymph % (Auto) [place] % (Auto) Eos % (Auto) Baso % (Auto) Absolute Neuts (auto) Absolute Lymphs (auto) Nucleated RBC % PT INR Sodium 139 Potassium 2.7 L* Chloride 101 Carbon Dioxide 30.0 Anion Gap 8 BUN 8 Creatinine 1.76 H Estim Creat Clear Calc 33.06 Est GFR (MDRD) Af Amer 38 L Est GFR (MDRD) Non-Af 31 L BUN/Creatinine Ratio 4.5 L Glucose 121 H Calcium 9.6 Total Bilirubin 1.70 H Direct Bilirubin 0.56 H AST 25 ALT 21 Alkaline Phosphatase 198 H Ammonia Total Protein 6.3 L Albumin 3.5 Globulin 2.8 TSH 1.10 Urine Color Yellow Urine Clarity Clear Urine pH 7.0 Ur Specific [place] 1.005 Urine Protein 30 H Urine Glucose (UA) Normal Urine Ketones Negative Urine Occult Blood 25 H Urine Nitrite Negative Urine Bilirubin Negative Urine Urobilinogen Normal Ur Leukocyte Esterase 500 H Urine RBC 0 SEEN Urine WBC 25-50 SEEN Ur Squamous Epith Cells 0-5 SEEN Urine Bacteria RARE Urine Mucus 0 SEEN Radiography Diagnostic Testing: Clinical Impression(s) from Imaging Studies Brain CT 12/29/21 18:20 IMPRESSION: Negative Brain CT without contrast. Electronically Signed: Manjit Collier DO at 20:14 EDT , Discharge Plan Triage Chief Complaint: Confusion ED Provider: Junior Salter Dx/Rx/DC Orders Clinical Impression: Encephalopathy, PEDRO (acute kidney injury), Pyuria, Neutropenia, Acute hypotension Prescriptions: No Action pantoprazole 40 MG tablet 40 mg PO DAILY fluoxetine 20 mg Capsule 20 mg PO DAILY benztropine 0.5 mg tablet 0.5 mg PO BID PRN PRN (Reason: shaking) magnesium oxide 400 mg magnesium Tablet 400 mg PO DAILY hydroxyzine HCl 50 mg Tablet 50 mg PO TID PRN PRN (Reason: Itching) trazodone 100 mg Tablet 100 mg PO QHS promethazine 25 mg Tablet 25 mg PO Q8H PRN PRN (Reason: Nausea) quetiapine 200 mg tablet 100 mg PO QHS Label Comments: take 1 tablet by mouth at bedtime thiamine HCl (vitamin B1) [Vitamin B-1] 50 mg Tablet 50 mg PO TID rosuvastatin 40 mg Tablet 40 mg PO QHS memantine [Namenda] 5 mg Tablet 5 mg PO QPM clonidine HCl 0.1 mg tablet 0.1 mg PO BID potassium chloride 40 mEq/15 mL liquid 15 ml PO DAILY folic acid 1 mg tablet 1 mg PO DAILY@0800 Primary Care Provider: Karl Moran Referrals: Karl Moran MD [Primary Care Provider] - Disposition Disposition: Acute Care Hospital [facility]
[2021-12-29 18:38] LABS: Absolute Lymphocyte Count 0.98 X10^3/uL (0.83-4.51); Absolute Neutrophil Count 2.8 X10^3/uL (2.0-7.7); Basophil# 0.01 X10^3/uL; Basophil% 0.3 % (0-1); Eosinophil# 0.03 X10^3/uL; Eosinophils% 0.8 % (0-5); Hematocrit 39.8 % (37-47); Hemoglobin 12.6 g/dL (12.0-15.0); Lymphocyte # 0.98 X10^3/ul (0.83-4.51); Lymphocyte % 24.5 % (19-41); Mean Corp Hgb Conc 31.7 g/dL (32-36); Mean Corpuscular Volume 82.2 fL (81-99); Mean Platelet Vol. 10.5 fl (6.2-12.0); Monocyte# 0.19 X10^3/uL; Monocyte% 4.8 % (0-10); NRBC Flagged by Analyzer 0 % (0-5); Neutrophil # 2.78 X10^3/uL (2.7-7.7); Neutrophil % 69.3 % (47-70); Platelet Count 115 K/mm3 (150-450); RBC Distribution Width CV 14.5 % (11.6-14.6); RBC Distribution Width SD 43.3 fl (35.1-43.9); Red Blood Count 4.84 M/mm3 (4.2-5.4)
[2021-12-29 18:46] LABS: International Normalized Ratio 1.1; Prothrombin Time (Protime)PT. 13.8 SECONDS (11.7-14.9)
[2021-12-29 19:09] LABS: AST(SGOT) 25 U/L (15-37); Alanine Aminotransfer ALT/SGPT 21 U/L (13-56); Albumin, Serum 3.5 g/dL (3.2-5.0); Alkaline Phosphatase 198 U/L (45-117); Anion Gap 8 (5-15); BUN 8 mg/dL (7-18); BUN/Creat Ratio 4.5 RATIO (10-20); Bilirubin, Direct 0.56 mg/dL (0.00-0.30); Calcium,Total 9.6 mg/dL (8.5-10.1); Chloride 101 mmol/L (98-107); Creatinine, Serum 1.76 mg/dL (0.55-1.02); EST Glomerular Filtration Rate 31 mL/min (>60); Est Glom Filt Rate - Afr Amer 38 mL/min (>60); Estimated Creatinine Clearance 33.06 ml/min; Globulin 2.8 g/dL (2.2-4.2); Glucose 121 mg/dL (74-106); Potassium 2.7 mmol/L (3.5-5.1); Protein, Total 6.3 g/dL (6.4-8.2); Sodium Level 139 mmol/L (136-145)
[2021-12-29 19:50] LABS: Color, Urine Yellow (Yellow); Glucose, Dipstick Normal (Normal); Ketone-Dipstick Negative (Negative); Leukocyte Esterase-Dipstick 500 /ul (Negative); Mucous, Urine 0 SEEN /hpf (<or=2+); Nitrite-Dipstick Negative (Negative); Occult Blood-Urine 25 /ul (Negative); Protein-Dipstick 30 mg/dl (Negative); Red Blood Cells-Urine 0 SEEN /hpf (0-5); Specific Gravity, Urine 1.005 (1.002-1.030); Urine Bilirubin Dipstick Negative (Negative); Urine Clarity Clear (Clear); Urine Urobilinogen Normal (Normal)
[2021-12-29 20:13] LABS: Bacteria RARE /hpf (None Seen); Squamous Epithelial Cells - UA 0-5 SEEN /hpf (5-10); White Blood Cells 25-50 SEEN /hpf (0-5)
[2021-12-29] MEDS: Potassium Chloride Oral Soln 20 MEQ/15 ML UDC 40 MEQ PO (20:32)
[2021-12-29] MEDS: 0.9% Normal Saline 1,000 ML 1000 ML IV (20:32)
[2021-12-29] MEDS: Ciprofloxacin 400 MG/200 ML BAG 200 MG IV (20:32)
--- NOTE | 2021-12-29 21:09 | HP.PCM.HOS_ITS ---
HPI - General General Date of Admission: 12/29/21 Date of Service: 12/29/21 Chief Complaint: Confusion, FTT adult. HPI Narrative The patient is a 61 y/o F w/ PMHx: Chronic dementia likely alcohol component related with no behavioral disturbance history, HTN, HLD, Hx VTE (DVT), COPD/Asthma with chronic hypoxic respiratory failure, Chronic anemia, Chronic thrombocytopenia, Anxiety and Depression, Hx EtOH abuse with associated Chronic Liver disease w/ Chronic Bilirubin/LFT elevations, GENNARO on BIPAP q HS who presents to the [facility] ED on 12/29/21 with history of reported confusion per family with inability to care for self safely noted to have not bathed in at least 2.5 weeks at her house in an unkempt situation likely not eating with history of a recent podiatric fracture prompting family bring patient to the ED for evaluation. They are unsure if she is even been taking her medications but they feel this is likely not the case. They note that she has had a decline for at least the last nearly 8 months but its been worse over the last several weeks. Work-up in the ED included T97.7, heart rate 104, BP 86/44, respiratory rate 18, CBC with WC 4, hemoglobin 12.6, platelet 115 without marked shift, unremarkable coags, CMP with potassium 2.7, BUN/creat 8/1.76, glucose 121, T bili 1.70, D bili 0.56, AST/ALT 25/21, alk phos 198, ammonia level 19, TSH 1.10, CT of the brain with no acute intracranial findings no evidence of prior stroke. In the ED patient ministered potassium 40 mill equivalent supplementation and normal saline bolus. Patient in the ED is mildly agitated with discussions regarding admission and notes strong preference to avoid stating that she is able to appropriately care for self despite discussions about evidence to the contrary. Daughters are concerned for a note that they have consistently been trying to transition her to assisted living as she is unable to safely care for self. [facility] Medical History (Updated 12/29/21 @ 20:[address] Junior Salter MD) Abdominal pain Abnormal liver CT Admitted to alcohol detoxification center Alcohol abuse Alcohol withdrawal Anemia Anxiety Arthritis Asthma BiPAP (biphasic positive airway pressure) dependence Bronchiectasis Bronchitis Chronic renal failure Chronic renal insufficiency, stage I Colitis Colitis with rectal bleeding COPD (chronic obstructive pulmonary disease) Dementia Depression DVT (deep venous thrombosis) Endocarditis Essential (primary) hypertension Former smoker Frequent falls Gastritis Gastroesophageal reflux disease History of diarrhea History of umbilical hernia HLD (hyperlipidemia) Hypertension Idiopathic right ventricular dilation Kidney disease Leukopenia Medical marijuana use Migraine Morbid obesity On home oxygen therapy GENNARO (obstructive sleep apnea) Osteoarthritis Pancytopenia Pneumonia Respiratory failure with hypoxia Respiratory insufficiency Respiratory tract infection due to COVID-19 virus Restrictive lung disease Right bundle branch block (RBBB) Right ventricular systolic dysfunction Sepsis Sleep apnea Substance abuse Thrombocytopenia Home Medications pantoprazole 40 mg tablet,delayed release 40 mg PO DAILY acid reflux 12/09/18 [History Last Taken 12/28/21] fluoxetine 20 mg capsule 20 mg PO DAILY anxiety 01/14/21 [History Last Taken 12/28/21] benztropine 0.5 mg tablet 0.5 mg PO BID PRN PRN shaking 03/08/21 [History Last Taken 12/29/21] magnesium oxide 400 mg PO DAILY supplement 06/08/21 [History Last Taken 12/29/21] hydroxyzine HCl 50 mg tablet 50 mg PO TID PRN PRN Itching 06/10/21 [History Last Taken Unknown] promethazine 25 mg tablet 25 mg PO Q8H PRN PRN Nausea 06/10/21 [History Last Taken Unknown] trazodone 100 mg tablet 100 mg PO QHS sleep 06/10/21 [History Last Taken 12/28/21] quetiapine 200 mg tablet 100 mg PO QHS mood 07/17/21 [History Last Taken 12/28/21] memantine 5 mg tablet (Namenda) 5 mg PO QPM memory 07/19/21 [History Last Taken 12/28/21] rosuvastatin 40 mg tablet 40 mg PO QHS cholesterol 07/19/21 [History Last Taken 12/28/21] thiamine HCl (vitamin B1) 50 mg tablet (Vitamin B-1) 50 mg PO TID supplement 07/19/21 [History Last Taken 12/28/21] clonidine HCl 0.1 mg tablet 0.1 mg PO BID bp 12/29/21 [History Last Taken 12/29/21] folic acid 1 mg tablet 1 mg PO DAILY@0800 supplement 12/29/21 [History Last Taken Unknown] potassium chloride 40 mEq/15 mL oral liquid 15 ml PO DAILY Supplement 12/29/21 [History Last Taken 12/29/21] Allergy/AdvReac Type Severity Reaction Status Date / Time Penicillins Allergy Hives Verified 08/03/21 16:43 DUST Allergy itchy eyes Uncoded 08/03/21 16:43 SEASONAL Allergy itchy eyes Uncoded 08/03/21 16:43 Family History Father Colon cancer Mother Cancer pancreatic Surgical History History of appendectomy History of cholecystectomy History of hysterectomy History of tubal ligation Social History (Updated 12/29/21 @ 18:[address] Junior Salter MD) household members: none Smoking Status: Former smoker Tobacco: How many years used: 25 how long ago did patient quit smokin, 0.5ppd second hand exposure: Yes alcohol intake: former year quit: 2020 substance use type: marijuana ROS ROS Narrative Admission Review of Systems: CONSTITUTIONAL: No weight loss, fever, chills, + weakness or fatigue. HEENT: Eyes: No visual loss, blurred vision, double vision or yellow sclerae. Ears, Nose, Throat: No hearing loss, sneezing, congestion, runny nose or sore throat. SKIN: No rash or itching, lesions, wounds. CARDIOVASCULAR: No chest pain, chest pressure or chest discomfort, palpitations, edema, orthopnea, syncopal events. RESPIRATORY: No shortness of breath, cough or sputum, wheezing, hemoptysis. GASTROINTESTINAL: + anorexia, recent loose stools from self administration miralax, No nausea, vomiting, abdominal pain, melena, BRBPR. GENITOURINARY: No dysuria, frequency, urgency or retention. NEUROLOGICAL: + Increased confusion, No headache, dizziness, syncope, paralysis, ataxia, numbness or tingling in the extremities, focal weakness, change in bowel or bladder control, seizure. MUSCULOSKELETAL: + muscle, back pain, joint pain or stiffness. HEMATOLOGIC:+ anemia, bleeding or bruising. LYMPHATICS: No enlarged nodes. No history of splenectomy. PSYCHIATRIC: + history of depression or anxiety. ENDOCRINOLOGIC: No reports of sweating, cold or heat intolerance. No polyuria or polydipsia. ALLERGIES: No history of asthma, hives, eczema or rhinitis. Vital Signs Vital Signs Vital Signs: 12/29/21 18:10 12/29/21 18:12 12/29/21 20:36 Temperature 97.7 F L 97.7 F L Temperature Source Temporal Temporal Pulse Rate 104 H 104 H 65 Respiratory Rate 18 18 12 Blood Pressure 86/44 L 86/44 L 91/63 Blood Pressure Mean 58 58 72 12/29/21 20:38 12/29/21 20:44 Temperature 97.3 F L 97.3 F L Temperature Source Temporal Oral Pulse Rate 64 65 Respiratory Rate 14 14 Blood Pressure 91/63 91/63 Blood Pressure Mean 72 72 Weight Weight: 210 lb 15.718 oz Body Mass Index (BMI) 33.0 Physical Exam Narrative Physical Examination: General: Awake, alert, oriented to self, place and some recent events but clearly is confused, reports that lately she self administered MiraLAX because she thought she swallowed her wedding rings, will follow some commands but quickly and easily becomes agitated, seated upright in the ED bed, fatigued appearing initially, became somewhat agitated with admission discussions. Skin: Normal color, normal turgor, no icterus, no cyanosis except occasional staged ecchymoses. HEENT: AT/NC, EOMI, PERRLA, dry MM, no carotid bruits or JVD noted. Lungs: Diminished, greater bases, appropriate effort, no rales, ronchi or wheezing. Heart: Regular rate and rhythm; no gallop, rub audible. Abdomen: Soft, NTTP, ND, mildly hyperactive BS, mild positive HM. Extremities: No cyanosis, clubbing, or edema. Neurological: Patient awake, alert, oriented as noted, cognitive function not baseline intact; pupils equally reactive to light and accommodation, cranial nerves II-XII grossly normal, moving all 4 extremities, no focal deficits, strength moderately global decreased secondary to acute presentation Psychiatric: Affect appears fatigued however patient does intermittently become agitated during evaluations, no acute evidence of depressive or anxiety feelings. Results Lab / Micro Data Result Diagrams: 12/29/21 18:30 12/29/21 18:30 Labs: Laboratory Results - last 24 hr 12/29/21 17:46: Ammonia 19.0 12/29/21 18:30: WBC 4.0 L, RBC 4.84, Hgb 12.6, Hct 39.8, MCV 82.2, MCH 26.0 L, MCHC 31.7 L, RDW Std Deviation 43.3, RDW Coeff of Jaun 14.5, Plt Count 115 L, MPV 10.5, Immature Gran % (Auto) 0.300, Neut % (Auto) 69.3, Lymph % (Auto) 24.5, [place]lette % (Auto) 4.8, Eos % (Auto) 0.8, Baso % (Auto) 0.3, Absolute Neuts (auto) 2.8, Absolute Lymphs (auto) 0.98, Nucleated RBC % 0 12/29/21 18:30: PT 13.8, INR 1.1 12/29/21 18:30: Sodium 139, Potassium 2.7 L*, Chloride 101, Carbon Dioxide 30.0, Anion Gap 8, BUN 8, Creatinine 1.76 H, Estim Creat Clear Calc 33.06, Est GFR (MDRD) Af Amer 38 L, Est GFR (MDRD) Non-Af 31 L, BUN/Creatinine Ratio 4.5 L, Glucose 121 H, Calcium 9.6, Total Bilirubin 1.70 H, Direct Bilirubin 0.56 H, AST 25, ALT 21, Alkaline Phosphatase 198 H, Total Protein 6.3 L, Albumin 3.5, Globulin 2.8, TSH 1.10 12/29/21 19:35: Urine Color Yellow, Urine Clarity Clear, Urine pH 7.0, Ur Specific Paxton 1.005, Urine Protein 30 H, Urine Glucose (UA) Normal, Urine Ketones Negative, Urine Occult Blood 25 H, Urine Nitrite Negative, Urine Bilirubin Negative, Urine Urobilinogen Normal, Ur Leukocyte Esterase 500 H, Urine RBC 0 SEEN, Urine WBC 25-50 SEEN, Ur Squamous Epith Cells 0-5 SEEN, Urine Bacteria RARE, Urine Mucus 0 SEEN Radiology Impression Brain CT 12/29/21 18:20 IMPRESSION: Negative Brain CT without contrast. Electronically Signed: Manjit Collier DO at 20:14 EDT , Assessment & Plan Assessment/Plan (1) PEDRO (acute kidney injury): (2) Encephalopathy: PLAN: Plan The patient is a 61 y/o F w/ PMHx: Chronic dementia likely alcohol component related with no behavioral disturbance history, HTN, HLD, Hx VTE (DVT), COPD/Asthma with chronic hypoxic respiratory failure, Chronic anemia, Chronic thrombocytopenia, Anxiety and Depression, Hx EtOH abuse with associated Chronic Liver disease w/ Chronic Bilirubin/LFT elevations, GENNARO on BIPAP q HS who presents to the [facility] ED on 12/29/21 with history of reported confusion per family with inability to care for self safely noted to have not bathed in at least 2.5 weeks at her house in an unkempt situation likely not eating with history of a recent podiatric fracture prompting family bring patient to the ED for evaluation. #1. Acute encephalopathy, suspect multifactorial with likely poor oral intake, dehydration and failure to take all medications complicated by adult failure to thrive with concurrently noted Acute Pyuria, ? UTI: Patient significantly decline, unable to obviously care for self, unkempt and unsafe living environment, will admit to medical surgical floor, maintain on fall precautions, will judiciously hydrate given evidence of PEDRO, correct electrolytes, resume/restart patient home medications, utilize BiPAP, request PT/OT/case management consultations for discharge planning as likely will need to consider at least assisted living at this time. Given timeline lower suspicion for stroke as etiology and given timeline would have expected findings on CT. Additionally patient urinalysis with pyuria, no specific urinary symptoms but administered IV Cipro given allergies in the ED with urine culture pending, will hold on further antibiotics pending urine cultures lower suspicion for UTI given UA is not marked appearing; however, if growth significant will add regimen. UDS, EtOH level pending. #2. Acute kidney injury: Secondary to decreased oral intake secondary to inability to care for self as noted. Admission BUN/Cr 8/1.76, prior baseline creatinine noted to be 0.8 primarily. Will hydrate, hold nephrotoxic medications and repeat chemistry in AM. If no improvement would plan FeNa and renal ultrasound assessment. #3. Hypokalemia: Admission K+ 2.7, magnesium level request, supplementation given, repeat level in AM. #4. Hypotension: Secondary to acute presentation, hypovolemic component also, continue judicious hydration, hold hypertensive regimen, add back once appropriate. #5. History of bimalleolar right ankle fracture: Noted 07/17/2021 ankle fracture status post ORIF by Dr. Vazquez. #6. Chronic anemia, thrombocytopenia: Likely secondary to alcohol abuse history admission hemoglobin 12.6, platelet 115, prior baseline hemoglobin 10-11 primarily, prior baseline platelets 102-146, stable, trend #7. Chronic dementia likely alcohol component related with no behavioral disturbance history: Complicates presentation, will continue patient home Namenda, thiamine and folic acid. #8. Chronic COPD/asthma with chronic hypoxic respiratory: Will maintain on home oxygen supplementation, hold home inhalers in the interim transition to ATC duonebs, PRN albuterol, HOB, IS parameters. #9. Chronic bilirubin, LFT elevation: Admission CMP with T bili 1.70, T bili 0.56, AST/ALT , alk phos 198, prior most recent T bili 1.40, D bili 0.51, alk phos 07/19/2021 121, will continue treatment as noted, trend CMP, encourage follow-up outpatient. #10. History alcohol abuse: Encouraged continued sobriety, noted sober since 2020. #11. History of VTE: Noted prior history, not currently on anticoagulant therapy. #12. Hypertension: As noted patient presenting with hypotension, holding regimen, add back once appropriate. #13. Hyperlipidemia: We will continue patient on statin therapy. #14. Tobacco Abuse: Encouraged cessation, inpatient consultation per RT, NR if desired. #15. Obesity: Weight loss and lifestyle changes encouraged. #16. GERD: We will continue patient on PPI. #17. Anxiety and depression: We will continue patient home fluoxetine, trazodone, quetiapine regimen. #18. GENNARO: BiPAP nightly. #19. DVT prophylaxis: SCDs, renally dosed lovenox. #20. CODE status: Discussed patient's status in the presence of her daughters. Discussed CODE status at length including difference between FULL code, DNR-CCA and DNR-CC status. Following discussions about the differences in these status, requested Full Code status. Advanced Care Planning Face to Face Time: 16 minutes. Charges/Coding Visit Charges Inpatient E&M: 79692 Init Hosp L3 Procedures Hospitalists Procedures: 12023 Advncd Care Plan 30 Min
[2021-12-29 21:49] LABS: Magnesium 2.7 mg/dL (1.6-2.6); Phosphorus 3.3 mg/dL (2.5-4.9)
[2021-12-29 21:49] LABS: Amphetamine Urine VISTA NEGATIVE (<1000 ng/mL); Barbiturate Urine VISTA NEGATIVE (< 200 ng/mL); Benzodiazepine Urine VISTA NEGATIVE (< 200 ng/mL); Cocaine Urine VISTA NEGATIVE (< 300 ng/mL); Ecstacy Urine VISTA NEGATIVE (< 500 ng/mL); Methadone Urine VISTA NEGATIVE (< 300 ng/mL); PCP Urine VISTA NEGATIVE (< 25 ng/mL); THC Urine VISTA NEGATIVE (< 50 ng/mL); Vista UDS pH Range 7
[2021-12-29] MEDS: 0.9% Normal Saline 1,000 ML 125 ML IV (23:14)
[2021-12-29] MEDS: Acetaminophen 325 MG Tablet 650 MG PO (23:26)
[2021-12-29] MEDS: Atorvastatin Calcium 80 MG Tablet PO (23:27)
[2021-12-29] MEDS: QUEtiapine 100 MG Tablet PO (23:27)
[2021-12-29] MEDS: traZODone 100 MG Tablet PO (23:27)
[2021-12-29] MEDS: Benztropine Mesylate 0.5 MG TABLET PO (23:28)
[2021-12-30] VITALS (9 sets, daily range): BP systolic 91–112; BP diastolic 60–99; PULSE 51–86; RESP 16–18; TEMP 36.2–37; O2SAT 94–98
--- NOTE | 2021-12-30 02:44 | CPS ---
Patient has a Bipap at home and has an order for Bipap while she is here. RT was at bedside attempting to place patient on Bipap QHS and she did not seem to understand what it was nor did she comply with wearing the hospital Bipap unit. RT had also asked patient if she knew what he home settings were for her machine and she replied with 11 PM Patient remains confused at this time and is not answering questions appropriately.
[2021-12-30 04:33] LABS: Absolute Lymphocyte Count 0.79 X10^3/uL (0.83-4.51); Absolute Neutrophil Count 2.1 X10^3/uL (2.0-7.7); Basophil# 0.01 X10^3/uL; Basophil% 0.3 % (0-1); Eosinophil# 0.04 X10^3/uL; Eosinophils% 1.3 % (0-5); Hematocrit 33.8 % (37-47); Hemoglobin 10.7 g/dL (12.0-15.0); Lymphocyte # 0.79 X10^3/ul (0.83-4.51); Lymphocyte % 24.8 % (19-41); Mean Corp Hgb Conc 31.7 g/dL (32-36); Mean Corpuscular Hgb 26.6 pg (27.0-32.0); Mean Corpuscular Volume 84.1 fL (81-99); Mean Platelet Vol. 10.2 fl (6.2-12.0); Monocyte% 6.3 % (0-10); NRBC Flagged by Analyzer 0 % (0-5); Neutrophil # 2.13 X10^3/uL (2.7-7.7); POSITIVE COUNT YES; Platelet Count 89 K/mm3 (150-450); RBC Distribution Width CV 14.4 % (11.6-14.6); RBC Distribution Width SD 43.9 fl (35.1-43.9); Red Blood Count 4.02 M/mm3 (4.2-5.4); White Blood Count 3.2 K/mm3 (4.4-11.0)
[2021-12-30 05:20] LABS: ALB/GLOB Ratio 1.1 RATIO (0.9-2.4); AST(SGOT) 21 U/L (15-37); Alanine Aminotransfer ALT/SGPT 17 U/L (13-56); Albumin, Serum 2.6 g/dL (3.2-5.0); Alkaline Phosphatase 155 U/L (45-117); Anion Gap 5 (5-15); BUN 8 mg/dL (7-18); BUN/Creat Ratio 5.6 RATIO (10-20); Calcium,Total 8.7 mg/dL (8.5-10.1); Chloride 107 mmol/L (98-107); Creatinine, Serum 1.42 mg/dL (0.55-1.02); EST Glomerular Filtration Rate 40 mL/min (>60); Est Glom Filt Rate - Afr Amer 49 mL/min (>60); Globulin 2.4 g/dL (2.2-4.2); Glucose 107 mg/dL (74-106); Potassium 3.1 mmol/L (3.5-5.1); Sodium Level 141 mmol/L (136-145)
[2021-12-30] MEDS: Folic Acid 1 MG Tablet PO (08:22)
[2021-12-30] MEDS: Thiamine Hydrochloride 100 MG Tablet 50 MG PO ×3 (08:22→18:07)
--- NOTE | 2021-12-30 10:15 | CASEMGMT ---
SIMON LEONARD Face to Face with patient for initial transition planning/care coordination assessment. RN CM introduced self and role at [facility]. Patient lying in bed, alert and oriented, slight confusion at time but able to reorient self. Patient willing to participate in assessment and is able to answer all questions appropriately. Care providers, pharmacy, and demographics verified. Patient wishes to discharge home, denies need for home health at this time. Patient states she has no further needs or concerns at this time. CM to follow for discharge planning needs that may arise. PCP: Karl Moran Specialists: Vito, radiology technologist; Darrel, byproducts supervisor [facility] Insurance: [employer] Prescription Benefit: yes Living Will/HPOA: yes, Seth Felder LNOK: , getting divorce, sister Living Arrangements: Patient states she lives alone in a first floor apartment with no steps to enter. Patient states she is independent at home. Transportation: self, sister DME/HHC: Patient states she has shower chair, BSC, grab bars, walker, rollator, pulse ox, and home oxygen through [employer] that she wears at night. Patient states she has portable tanks at home. RN HOARCIO called [employer] and verified order of 2lpm continuous. Patient states she has previously been to [place] and has had [facility]HC in the past. Disposition Plan: Patient to discharge home with family support and follow-up plans in place. Samanta WALTON, RN, CM
[2021-12-30] MEDS: 0.9% Saline Lock 10 ML Syringe IV (10:52)
[2021-12-30] MEDS: 0.9% Normal Saline 1,000 ML 125 ML IV ×2 (10:52→18:53)
[2021-12-30] MEDS: Pantoprazole Sodium 40 MG Tablet PO (10:54)
[2021-12-30] MEDS: Enoxaparin 30 MG/0.3 ML Syringe SC (10:54)
[2021-12-30] MEDS: Potassium Chloride Oral Soln 20 MEQ/15 ML UDC 40 MEQ PO (10:54)
[2021-12-30] MEDS: FLUoxetine 20 MG Capsule PO (10:54)
[2021-12-30] MEDS: Magnesium Chloride 64 MG Delay Rel.Tablet 128 MG PO (10:54)
[2021-12-30] MEDS: QUEtiapine 25 MG Tablet 50 MG PO (12:57)
[2021-12-30] MEDS: ALPRAZolam 0.5 MG Tablet 1 MG PO (12:57)
--- NOTE | 2021-12-30 13:58 | CASEMGMT ---
Per physician patient cannot make decisions for herself. Physicians spoke with patient's daughter Cheryl and she would like patient to go to [facility]. Patient is not doing well at home. DALLAS called Ursula at [facility] and she is aware of patient. Ursula said patient was working on coming to them from home, but then patient backed out at the last minute. DALLAS faxed referral. Await response. Jina Mao RETENTION MANAGER PEBBLES
--- NOTE | 2021-12-30 14:35 | CASEMGMT ---
DALLAS returned patient's daughter Cheryl's phone call. Cheryl is concerned about her mom as she is not caring for herself. She hasn't bathed in weeks, she doesn't take her meds right. Cheryl is not sure what to do with patient. DALLAS let Cheryl know the physician does not feel patient can make decisions for herself. Patient's who is now her ex- is listed as her healthcare power of city attorney. Cheryl said she wants patient to go to [facility]. Cheryl is worried that once patient is at [facility] she will clear up and then get discharged home again. DALLAS let Cheryl know that if patient is alert and oriented she can make decisions for herself. However, if her physician feels she is incompetent and not able to make decisions for herself then he can complete a Statement of Expert Evaluation which she would take to Probate Court to obtain guardianship. DALLAS let Cheryl know that DALLAS made a referral to [facility]. DALLAS is waiting on them to get back to . DALLAS did try and call patient's ex- who is listed as her Healthcare Power of Agronomy Manager to confirm he would defer decisions to patient's daughters. He did not answer. DALLAS called Cheryl back and she got patient's ex- Seth on the phone and he confirmed he is deferring decisions to Cheryl and her sister. Await phone call from Ursula at [facility]. Jina ROGEL
--- NOTE | 2021-12-30 15:38 | PN.HOSP_ITS ---
Subjective Subjective Patient was seen and examined today, she appeared to be nervous at times, her speech was nonsensical at times talking about I hope I have 3 beds at my house, I talked at length with her daughter who states that the patient has a history of dementia and is not safe to live by herself at this time, I talked with the patient today and asked her if she would go to a [facility] facility if physical therapy felt she had a need for inpatient physical therapy, patient would not give me a direct answer about this. 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 Patient's daughter who I talked with on the phone today stated that the patient does not bays on a regular basis at home, her apartment is not kept up, and at times patient leaves her door open and yells out her door according to the patient's daughter. Objective Data Objective Data Vital Signs: Vital Signs Temp Pulse Resp BP Pulse Ox O2 Del Method 98.6 F 86 16 91/62 98 Room Air 12/30/21 10:49 12/30/21 10:49 12/30/21 10:49 12/30/21 10:49 12/30/21 10:49 12/30/21 10:49 Oxygen Delivery Method Room Air Weight: 96.4 kg Body Mass Index (BMI) 32.3 Intake & Output: Intake and Output for Last 24 Hours 12/28/21 12/29/21 12/30/21 23:59 23:59 23:59 Intake Total 1200 / 1200 1000 / 1000 Output Total 0 / 0 Balance 1200 / 1200 1000 / 1000 Medical Nutrition Assessment Dietitian: Malnutrition Criteria Met Start: 12/30/21 11:15 Freq: Status: Active Protocol: Document 12/30/21 11:15 AG (Rec: 12/30/21 11:15 [id number]) Nutrition Malnutrition Evidence of Malnutrition Exists Yes Malnutrition (moderate): Chronic Evidenced By Suboptimal Energy Intake ( Moderate),Weight Loss ( Moderate) Clinical Problem Chronic Disease or Condition Related Malnutrition Etiology moderate, chronic malnutrition related to inadequate energy intake d/t decreased appetite, chronic dementia/ encephalopathy Signs/Symptoms as evidenced by unintentional wt loss of 30#/12% x 6 months; estimated PO intake meeting < 75% of estimated energy needs >3 months Status Active Problem Recommendation Dietitian Recommendations/Changes continue regular diet as tolerated; will add 120mL ensure compact w/ meals for additional calories/protein if consumed. Will consider sodium restricted diet if PO intake improves at meals. Lab / Micro Data Result Diagrams: 12/30/21 03:41 12/30/21 03:41 Labs: Laboratory Results - last 24 hr 12/29/21 17:46: Ammonia 19.0 12/29/21 18:30: WBC 4.0 L, RBC 4.84, Hgb 12.6, Hct 39.8, MCV 82.2, MCH 26.0 L, MCHC 31.7 L, RDW Std Deviation 43.3, RDW Coeff of Jaun 14.5, Plt Count 115 L, MPV 10.5, Immature Gran % (Auto) 0.300, Neut % (Auto) 69.3, Lymph % (Auto) 24.5, [place] % (Auto) 4.8, Eos % (Auto) 0.8, Baso % (Auto) 0.3, Absolute Neuts (auto) 2.8, Absolute Lymphs (auto) 0.98, Nucleated RBC % 0 12/29/21 18:30: PT 13.8, INR 1.1 12/29/21 18:30: Sodium 139, Potassium 2.7 L*, Chloride 101, Carbon Dioxide 30.0, Anion Gap 8, BUN 8, Creatinine 1.76 H, Estim Creat Clear Calc 33.06, Est GFR (MDRD) Af Amer 38 L, Est GFR (MDRD) Non-Af 31 L, BUN/Creatinine Ratio 4.5 L, Glucose 121 H, Calcium 9.6, Total Bilirubin 1.70 H, Direct Bilirubin 0.56 H, AST 25, ALT 21, Alkaline Phosphatase 198 H, Total Protein 6.3 L, Albumin 3.5, Globulin 2.8, TSH 1.10 12/29/21 18:30: Phosphorus 3.3, Magnesium 2.7 H 12/29/21 18:30: Ethyl Alcohol 4.0 12/29/21 19:35: Urine Color Yellow, Urine Clarity Clear, Urine pH 7.0, Ur Specific [place] 1.005, Urine Protein 30 H, Urine Glucose (UA) Normal, Urine Ketones Negative, Urine Occult Blood 25 H, Urine Nitrite Negative, Urine Bilirubin Negative, Urine Urobilinogen Normal, Ur Leukocyte Esterase 500 H, Urine RBC 0 SEEN, Urine WBC 25-50 SEEN, Ur Squamous Epith Cells 0-5 SEEN, Urine Bacteria RARE, Urine Mucus 0 SEEN 12/29/21 : Urine Opiates Screen NEGATIVE, Urine Methadone Screen NEGATIVE, Ur Barbiturates Screen NEGATIVE, Ur Phencyclidine Scrn NEGATIVE, Ur Amphetamines Screen NEGATIVE, MDMA (Ecstasy) Screen NEGATIVE, U Benzodiazepines Scrn NEGATIVE, Urine Cocaine Screen NEGATIVE, U Cannabinoids Screen NEGATIVE, Ur Drug Screen Comment 12/30/21 03:41: WBC 3.2 L, RBC 4.02 L, Hgb 10.7 L, Hct 33.8 L, MCV 84.1, MCH 26.6 L, MCHC 31.7 L, RDW Std Deviation 43.9, RDW Coeff of Jaun 14.4, Plt Count 89 L, MPV 10.2, Immature Gran % (Auto) 0.300, Neut % (Auto) 67.0, Lymph % (Auto) 24.8, [place] % (Auto) 6.3, Eos % (Auto) 1.3, Baso % (Auto) 0.3, Absolute Neuts (au to) 2.1, Absolute Lymphs (auto) 0.79 L, Nucleated RBC % 0 12/30/21 03:41: Sodium 141, Potassium 3.1 L, Chloride 107, Carbon Dioxide 29.0, Anion Gap 5, BUN 8, Creatinine 1.42 H, Estim Creat Clear Calc 42.50, Est GFR (MDRD) Af Amer 49 L, Est GFR (MDRD) Non-Af 40 L, BUN/Creatinine Ratio 5.6 L, Glucose 107 H, Calcium 8.7, Total Bilirubin 1.40 H, AST 21, ALT 17, Alkaline Phosphatase 155 H, Total Protein 5.0 L, Albumin 2.6 L, Globulin 2.4, Albumin/Globulin Ratio 1.1 Radiography Diagnostic Testing: Radiology Impression Brain CT 12/29/21 18:20 IMPRESSION: Negative Brain CT without contrast. Electronically Signed: Manjit Collier DO at 20:14 EDT , Physical Exam Const alert and no apparent distress Constitutional Narrative: Patient appears older than her stated age, she is confused but answers some questions appropriately General Appearance: well developed Orientation / Consciousness: awake HEENT normocephalic, head/scalp atraumatic and moist oral mucous membranes Eyes PERRL, EOMs intact bilaterally and conjunctivae normal Neck supple, no JVD, thyroid normal and no carotid bruits General: trachea midline Resp normal respiratory effort, no retractions, no use of accessory muscles and clear to auscultation bilaterally Auscultation: Negative for rales, rhonchi or wheezes Cardio regular rate, regular rhythm, S1 normal heart sound, S2 normal heart sound, no murmurs, no rub and no gallops GI normal to inspection, nondistended, normoactive bowel sounds, soft to palpation, non-tender and non-distended Extremity no clubbing, cyanosis or edema Skin no rashes or lesions noted General Skin Exam: no breakdown Neuro oriented x3, CN's II-XII intact bilaterally, no focal motor deficits and no sensory deficits noted Sensorium / Orientation: awake and alert Speech: speech normal Psych Psych Narrative: Patient is alert but confused at times, she answers some questions appropriately but other times she answers questions inappropriately. Assessment & Plan Assessment/Plan (1) Encephalopathy: PLAN: Plan 1. Acute metabolic encephalopathy on a backdrop of known dementia-it is difficult for this examiner to separate the patient's baseline mental status at this time, patient appears nervous and confused, she does answer simple questions appropriately most of the time. #2 acute kidney injury-patient's creatinine is improved today, I will continue IV fluid ministration and recheck her labs #3 hypokalemia-patient's potassium today was 3.1, supplemental potassium was given to the patient and labs will be rechecked tomorrow #4 dementia-I have elected to increase the patient's Namenda to 10 mg twice daily, I have increased the patient's Seroquel to 100 mg twice daily-patient requested this because she is nervous. #5 hyperlipidemia-patient is on a statin #6 chronic anemia-etiology unclear, I will order iron studies on the patient, 2 years ago patient was iron deficient. #7 alcoholism-according to patient's daughter, she is not drinking any longer #8 acute on chronic debility-PT and OT will see and evaluate patient, she will probably need placement in a [facility] facility.. Charges/Coding Visit Charges Inpatient E&M: 86467 Subs Hosp L2
--- NOTE | 2021-12-30 16:11 | CASEMGMT ---
[place] received a call from [facility] and they can take patient. SW notified patient's daughter Cheryl. SW answered some of Cheryl's questions regarding guardianship. Patient's primary Care Doctor is going to complete the Statement of Expert Evaluation papers. Plan: d/c to [facility] under skilled level of care. Jina ROGEL
--- NOTE | 2021-12-30 17:37 | CASEMGMT ---
Social Work Note SW updated physician that pt can discharge to [facility]. Physician states pt will discharge tomorrow. [place] updated [facility] at [facility]. Plan: [facility] skilled when medically cleared Samanta Vaughan TRANSLITERATOR, EMAIL MANAGER
[2021-12-30] MEDS: Memantine Hydrochloride 10 MG Tablet PO (22:50)
[2021-12-30] MEDS: Atorvastatin Calcium 80 MG Tablet PO (22:50)
[2021-12-30] MEDS: QUEtiapine 100 MG Tablet PO (22:50)
[2021-12-30] MEDS: traZODone 100 MG Tablet PO (22:50)
[2021-12-31] MEDS: 0.9% Normal Saline 1,000 ML 125 ML IV (03:03)
[2021-12-31 04:05] VITALS: PULSE 58
[2021-12-31 04:40] VITALS: BP 115/89; PULSE 78; RESP 18; TEMP 36.6; O2SAT 97
[2021-12-31 07:24] VITALS: O2SAT 93
[2021-12-31 07:44] VITALS: PULSE 78
[2021-12-31 07:58] LABS: Anion Gap 2 (5-15); BUN 9 mg/dL (7-18); BUN/Creat Ratio 7.3 RATIO (10-20); Calcium,Total 8.5 mg/dL (8.5-10.1); Chloride 113 mmol/L (98-107); Creatinine, Serum 1.24 mg/dL (0.55-1.02); EST Glomerular Filtration Rate 47 mL/min (>60); Est Glom Filt Rate - Afr Amer 57 mL/min (>60); Estimated Creatinine Clearance 48.67 ml/min; Glucose 104 mg/dL (74-106); Potassium 3.3 mmol/L (3.5-5.1); Sodium Level 141 mmol/L (136-145)
--- NOTE | 2021-12-31 08:26 | PCM.TXEXTCAR ---
Diet Diet Order/Speech Therapy: 12/29/21 22:37 Diet: Regular - General Food consistency:: Regular Liquid Consistency:: Regular/Thin Type of Dietary Supplement:: Ensure Compact Is pt able to select menu?: Yes Routine Orders/Code Status Routine Lab Work: BMP (in 3 days) Code Status: Full Code Therapies Weight Bearing: Full weight bearing Physical Therapy: Eval and Treat Occupational Therapy: Eval and Treat Problem/Diagnosis (1) Encephalopathy: Status: Acute Code(s): G93.40 - Encephalopathy, unspecified Plan 1. Acute metabolic encephalopathy on a backdrop of known dementia-it is difficult for this examiner to separate the patient's baseline mental status at this time, patient appears nervous and confused, she does answer simple questions appropriately most of the time. #2 acute kidney injury-patient's creatinine is improved today #3 hypokalemia-patient's potassium today was 3.3, supplemental potassium was given to the patient #4 dementia #5 hyperlipidemia-patient is on a statin #6 chronic anemia-etiology unclear, I will order iron studies on the patient, 2 years ago patient was iron deficient. #7 alcoholism-according to patient's daughter, she is not drinking any longer #8 acute on chronic debility- #9 essential hypertension patient is currently on no medication for blood pressure, blood pressure seems controlled Allergies/Procedures Done in Hospital Allergies house dust Allergy (Verified 12/29/21 22:40) ITCHY EYES Penicillins Allergy (Verified 08/03/21 16:43) Hives SEASONAL Allergy (Uncoded 08/03/21 16:43) itchy eyes Procedures: None Type of Care/Length of Stay Estimated LOS: Convalescent Care Less Than 30 days Type of Care Needed: Skilled Rehab Potential: Good Prognosis: Good Additional Orders/Day of Discharge H&P will serve as current which was dated: 12/29/21 Day of Discharge: 12/31/21 Dietary and Speech Recommendations Dietitian Recommendations/Changes: continue regular diet as tolerated; will add 120mL ensure compact w/ meals for additional calories/protein if consumed. Will consider sodium restricted diet if PO intake improves at meals. Discharge Plan Admission Admit Date/Time: 12/29/21 21:15 Primary Reason for Your Visit: Acute kidney injury, debility, encephalopathy Attending Provider: Sanjay Vega Primary Care Provider: Karl Moran Consulting Providers: Mckenzie Austin Discharge Orders/Prescriptions Prescriptions: New quetiapine 100 mg Tablet 100 mg PO BID Qty: 0 0RF memantine 10 mg Tablet 10 mg PO BID Qty: 0 0RF potassium chloride 10 mEq tablet extended release 20 meq PO BID Qty: 1 0RF Continued pantoprazole 40 MG tablet 40 mg PO DAILY fluoxetine 20 mg Capsule 20 mg PO DAILY benztropine 0.5 mg tablet 0.5 mg PO BID PRN PRN (Reason: shaking) magnesium oxide 400 mg magnesium Tablet 400 mg PO DAILY hydroxyzine HCl 50 mg Tablet 50 mg PO TID PRN PRN (Reason: Itching) trazodone 100 mg Tablet 100 mg PO QHS thiamine HCl (vitamin B1) [Vitamin B-1] 50 mg Tablet 50 mg PO TID rosuvastatin 40 mg Tablet 40 mg PO QHS folic acid 1 mg tablet 1 mg PO DAILY@0800 Discontinued promethazine 25 mg Tablet 25 mg PO Q8H PRN PRN (Reason: Nausea) quetiapine 200 mg tablet 100 mg PO QHS Label Comments: take 1 tablet by mouth at bedtime memantine [Namenda] 5 mg Tablet 5 mg PO QPM clonidine HCl 0.1 mg tablet 0.1 mg PO BID potassium chloride 40 mEq/15 mL liquid 15 ml PO DAILY Referrals / Follow Up: Karl Moran MD [Primary Care Provider] - Disposition Disposition (needs filled in before D/C Order can be placed): Intermediate Facility
[2021-12-31 09:02] LABS: Iron 61 ug/dL (50-170); Iron Binding Capacity,Total 222 ug/dL (250-450); PERCENT IRON SATURATION 27.5 % (15.0-55.0)
[2021-12-31] MEDS: Potassium Chloride Oral Tablet 20 MEQ 40 MEQ PO (09:33)
[2021-12-31] MEDS: Folic Acid 1 MG Tablet PO (09:33)
--- NOTE | 2021-12-31 09:33 | DS.PCM_ITS ---
Providers Date of Admission: 12/29/21 Date of Discharge: 12/31/21 Primary Care Physician: Dr. Karl Moran MD Reason For Visit: HYPOTENSION, PEDRO, ENCEPHALOPATHY, ? UTI Diagnosis Discharge Diagnosis (1) Encephalopathy: Status: Acute Code(s): G93.40 - Encephalopathy, unspecified Plan 1. Acute metabolic encephalopathy on a backdrop of known dementia-exact etiology of the metabolic encephalopathy is unknown #2 acute kidney injury-patient's creatinine is improved today #3 hypokalemia-patient's potassium today was 3.3, supplemental potassium was given to the patient #4 dementia #5 hyperlipidemia-patient is on a statin #6 chronic anemia, type unknown #7 alcoholism-according to patient's daughter, she is not drinking any longer #8 acute on chronic debility- #9 essential hypertension patient is currently on no medication for blood pressure, blood pressure seems controlled #10 moderate chronic protein and caloric malnutrition related to inadequate energy intake with decreased appetite as evidenced by weight loss of 30% over 6 months and estimated p.o. intake meeting less than 75% of estimated energy needs for more than 3 months- patient was treated with 120 cc of Ensure compact with meals and a regular diet Medications at Discharge Home Medications pantoprazole 40 mg tablet,delayed release 40 mg PO DAILY acid reflux 12/09/18 fluoxetine 20 mg capsule 20 mg PO DAILY anxiety 01/14/21 benztropine 0.5 mg tablet 0.5 mg PO BID PRN PRN shaking 03/08/21 magnesium oxide 400 mg PO DAILY supplement 06/08/21 hydroxyzine HCl 50 mg tablet 50 mg PO TID PRN PRN Itching 06/10/21 trazodone 100 mg tablet 100 mg PO QHS sleep 06/10/21 rosuvastatin 40 mg tablet 40 mg PO QHS cholesterol 07/19/21 thiamine HCl (vitamin B1) 50 mg tablet (Vitamin B-1) 50 mg PO TID supplement 07/19/21 folic acid 1 mg tablet 1 mg PO DAILY@0800 supplement 12/29/21 memantine 10 mg tablet 10 mg PO BID #0 tabs 12/31/21 potassium chloride 10 mEq tablet,extended release 20 meq PO BID #1 TAB 12/31/21 quetiapine 100 mg tablet 100 mg PO BID #0 tabs 12/31/21 Hospital Course Operations None Procedures None Summary of Care Provided Minutes Spent on Discharge: 32 Hospital Course: This 61-year-old white female was seen in the emergency room at [facility] after she was brought in by her family due to confusion, patient has a past history of alcoholism and a history of dementia, according to the family, she was not caring for self and had not bathed in 2 and half weeks. She was also not cleaning her house and the family was concerned that she needed placement in a [facility] facility for rehab services. Patient appeared confused on physical exam, labs were obtained which showed a normal ammonia level, potassium was low at 2.7, creatinine was elevated at 1.76, bilirubin alkaline phosphatase were elevated. Urinalysis did not indicate an acute urina ry tract infection. Patient was admitted to PCU, she was seen by PT and OT, due to the patient's dementia it was necessary to place her in a [facility] facility for rehab services and care. On 12/31/2021, patient was seen and examined: On examination she appeared older than her stated age, she exhibited moderate confusion, she does not appear to be in any distress. Vital signs as documented. Skin warm and dry and without overt rashes. Neck without JVD, thyroid appears normal, trachea is midline, neck is supple. Lungs clear, normal air movement was noted. Heart exam notable for regular rhythm, normal sounds and absence of murmurs, rubs or gallops. Abdomen unremarkable and without evidence of organomegaly, masses, or abdominal aortic enlargement, bowel sounds are present in all 4 quadrants, no abdominal tenderness was noted. Extremities nonedematous, no cyanosis was noted, no clubbing was noted. Neuro: Cranial nerves II through XII are grossly intact, no focal motor deficits were noted, sensation to light touch and pinprick is intact, motor exam 5/5 throughout. Psych: Patient is alert and has moderate confusion. On 12/31/2021, patient was seen and examined and discharged in stable condition to a local extended care facility. Medical Records Data Medical Nutrition Assessment Dietitian: Malnutrition Criteria Met Start: 12/30/21 11:15 Freq: Status: Active Protocol: Document 12/30/21 11:15 AG (Rec: 12/30/21 11:15 AG [id number]) Nutrition Malnutrition Evidence of Malnutrition Exists Yes Malnutrition (moderate): Chronic Evidenced By Suboptimal Energy Intake ( Moderate),Weight Loss ( Moderate) Clinical Problem Chronic Disease or Condition Related Malnutrition Etiology moderate, chronic malnutrition related to inadequate energy intake d/t decreased appetite, chronic dementia/ encephalopathy Signs/Symptoms as evidenced by unintentional wt loss of 30#/12% x 6 months; estimated PO intake meeting < 75% of estimated energy needs >3 months Status Active Problem Recommendation Dietitian Recommendations/Changes continue regular diet as tolerated; will add 120mL ensure compact w/ meals for additional calories/protein if consumed. Will consider sodium restricted diet if PO intake improves at meals. Weight / BMI Weight Weight: 99 kg Body Mass Index (BMI) 32.3 ABG / Lab / Microbiology Data Result Diagrams: 12/30/21 03:41 12/31/21 06:49 Laboratory: Laboratory Results - last 24 hr 12/31/21 06:49: Sodium 141, Potassium 3.3 L, Chloride 113 H, Carbon Dioxide 26.0, Anion Gap 2 L, BUN 9, Creatinine 1.24 H, Estim Creat Clear Calc 48.67, Est GFR (MDRD) Af Amer 57 L, Est GFR (MDRD) Non-Af 47 L, BUN/Creatinine Ratio 7.3 L, Glucose 104, Calcium 8.5 12/31/21 06:49: Iron 61, TIBC 222 L, Iron Saturation 27.5 Meaningful Use Info Meaningful Use Diagnoses (Choose all that apply): None applicable Discharge Plan Admission Admit Date/Time: 12/29/21 21:15 Primary Reason for Your Visit: Acute kidney injury, debility, encephalopathy Attending Provider: Sanjay Vega Primary Care Provider: Karl Moran Consulting Providers: Mckenzie Austin Discharge Orders/Prescriptions Prescriptions: New quetiapine 100 mg Tablet 100 mg PO BID Qty: 0 0RF memantine 10 mg Tablet 10 mg PO BID Qty: 0 0RF potassium chloride 10 mEq tablet extended release 20 meq PO BID Qty: 1 0RF Continued pantoprazole 40 MG tablet 40 mg PO DAILY fluoxetine 20 mg Capsule 20 mg PO DAILY benztropine 0.5 mg tablet 0.5 mg PO BID PRN PRN (Reason: shaking) magnesium oxide 400 mg magnesium Tablet 400 mg PO DAILY hydroxyzine HCl 50 mg Tablet 50 mg PO TID PRN PRN (Reason: Itching) trazodone 100 mg Tablet 100 mg PO QHS thiamine HCl (vitamin B1) [Vitamin B-1] 50 mg Tablet 50 mg PO TID rosuvastatin 40 mg Tablet 40 mg PO QHS folic acid 1 mg tablet 1 mg PO DAILY@0800 Discontinued promethazine 25 mg Tablet 25 mg PO Q8H PRN PRN (Reason: Nausea) quetiapine 200 mg tablet 100 mg PO QHS Label Comments: take 1 tablet by mouth at bedtime memantine [Namenda] 5 mg Tablet 5 mg PO QPM clonidine HCl 0.1 mg tablet 0.1 mg PO BID potassium chloride 40 mEq/15 mL liquid 15 ml PO DAILY Referrals / Follow Up: Karl Moran MD [Primary Care Provider] - Disposition Disposition (needs filled in before D/C Order can be placed): [facility] Charges/Coding Visit Charges Inpatient E&M: 29800 Disch Hosp
[2021-12-31] MEDS: Magnesium Chloride 64 MG Delay Rel.Tablet 128 MG PO (09:34)
[2021-12-31] MEDS: Pantoprazole Sodium 40 MG Tablet PO (09:34)
[2021-12-31] MEDS: Thiamine Hydrochloride 100 MG Tablet 50 MG PO ×2 (09:34→11:17)
[2021-12-31] MEDS: Memantine Hydrochloride 10 MG Tablet PO (09:34)
[2021-12-31] MEDS: FLUoxetine 20 MG Capsule PO (09:35)
[2021-12-31] MEDS: Potassium Chloride Oral Soln 20 MEQ/15 ML UDC 40 MEQ PO (09:35)
[2021-12-31] MEDS: QUEtiapine 100 MG Tablet PO (09:35)
[2021-12-31] MEDS: Enoxaparin 40 MG/0.4 ML Syringe SC (09:46)
[2021-12-31 09:50] VITALS: BP 105/53; PULSE 74; RESP 15; TEMP 36.8; O2SAT 99
--- NOTE | 2021-12-31 11:00 | CASEMGMT ---
Social Work Note Pt to discharge to [facility] today. SW completed [facility], faxed to [facility] at [facility] Plan: [facility] skilled today Samanta Vaughan PRODUCTION EXPEDITER, HYDROLOGY TECHNICIAN
--- NOTE | 2021-12-31 13:25 | NURSING ---
report called to [facility]
== END 2021-12-31 13:12 | DRG 71 ==
LOC: ED 20:46 → PCU 22:07
PROVIDERS: Admitting Provider Family Medicine; Emergency Provider Emergency Medicine; PCP Family Medicine; Visit Provider Internal Medicine
DX: G93.41 Metabolic encephalopathy (principal); E44.0 Moderate protein-calorie malnutrition; N17.9 Acute kidney failure, unspecified; F10.27 Alcohol dependence with alcohol-induced persisting dementia; I95.9 Hypotension, unspecified; D69.59 Other secondary thrombocytopenia; J44.9 Chronic obstructive pulmonary disease, unspecified; E86.0 Dehydration; K21.9 Gastro-esophageal reflux disease without esophagitis; E78.5 Hyperlipidemia, unspecified; F41.9 Anxiety disorder, unspecified; I10 Essential (primary) hypertension; G47.33 Obstructive sleep apnea (adult) (pediatric); E87.6 Hypokalemia; E66.9 Obesity, unspecified; Z87.19 Personal history of other diseases of the digestive system; Z86.718 Personal history of other venous thrombosis and embolism; F32.A Depression, unspecified; Z86.16 Personal history of COVID-19; Z86.19 Personal history of other infectious and parasitic diseases; Z79.899 Other long term (current) drug therapy; Z87.891 Personal history of nicotine dependence; Z68.33 Body mass index [BMI] 33.0-33.9, adult; R53.81 Other malaise
CPT/HCPCS: 36415; 70450; 80048; 80053; 80076; 80307; 81001; 82077; 82140; 83540; 83550; 83735; 84100; 84443; 85025; 85610; 87086; 87426; 94762; 97162; 97166; 97802; 99251; 99285; J7030; P9612; A4216; G0463; J0744

== ENCOUNTER 2022-03-15 12:41 | Emergency (ER) | payer MEDICARE, MEDICAID, SELFPAY ==
[2022-03-15 12:42] VITALS: BP 90/67; PULSE 88; RESP 16; TEMP 36.8; O2SAT 100; BMI 34.4
--- NOTE | 2022-03-15 12:54 | ED.RN ---
PATIENT TRYING TO PUT HER NASAL CANNULA OXYGEN TUBING ON LIKE GLASSES.
--- NOTE | 2022-03-15 13:16 | EKG12_ITS ---
Test Reason : CONFUSION Blood Pressure : / mmHG Vent. Rate : 068 BPM Atrial Rate : 068 BPM P-R Int : 156 ms QRS Dur : 134 ms QT Int : 452 ms P-R-T Axes : 014 055 -26 degrees QTc Int : 480 ms Sinus rhythm with Fusion complexes Right bundle branch block T wave abnormality, consider lateral ischemia Abnormal ECG Confirmed by BENEDICT CLINTON, KAMRYN ([id number]), news video editor JOSIAH FLOOD ([id number]) on 03/16/2022 1:49:33 P M Referred By: VERONICA Confirmed By:KATRINA MCMULLEN MD
--- NOTE | 2022-03-15 13:26 | RAD_ITS ---
STUDY: X-RAY CHEST REASON FOR EXAM: Female, 61 years old. Altered mental status. TECHNIQUE: Single AP portable view of the chest. COMPARISON: Comparison is made with prior study dated 07/17/2021. FINDINGS: Stable elevation of the right hemidiaphragm. Increased markings at the left lung base with blunting of the left costophrenic angle. This may represent atelectasis and/or infiltrate. Normal size heart. Normal mediastinum and myriam. Normal visualized pulmonary arteries. Normal visualized aortic arch and descending thoracic aorta. Normal visualized thoracic spine. Normal visualized ribs, clavicles, and shoulders. There is no demonstrated abnormality of the visualized soft tissue structures of the upper abdomen. RAD/Chest 1 View (Portable) IMPRESSION: Elevation of the left hemidiaphragm with blunting of the left costophrenic angle and increased markings at the left lung base. Follow-up recommended. Electronically Signed: Kamran Velazquez MD at 13:56 EDT ,
--- NOTE | 2022-03-15 13:40 | EX.ED.DYSGE1 ---
HPI History of Present Illness Chief Complaint: Confusion Narrative Narrative: 61-year-old female presenting with her brother for confusion. The patient herself states she just feels a little fuzzy today. She is alert to self, knows she is in the hospital, knows the year but is an accurate on the month of September. There is been no reported falls at home. She has not had fever, nausea, vomiting. She not have any chest pain, cough, shortness of breath. No abdominal pain. She does have a history of dementia and is a poor informant. Her brother states that he thinks he only gets confused when she takes certain medications, but does not know any of her medications. He states I am not the one to ask about this. He does know that she is not on any narcotic pain medication. He does not believe she is on any benzodiazepines. [facility] Medical History Abdominal pain Abnormal liver CT Admitted to alcohol detoxification center Alcohol abuse Alcohol withdrawal Anemia Anxiety Arthritis Asthma BiPAP (biphasic positive airway pressure) dependence Bronchiectasis Bronchitis Chronic renal failure Chronic renal insufficiency, stage I Colitis Colitis with rectal bleeding COPD (chronic obstructive pulmonary disease) Dementia Depression DVT (deep venous thrombosis) Endocarditis Essential (primary) hypertension Former smoker Frequent falls Gastritis Gastroesophageal reflux disease History of diarrhea History of umbilical hernia HLD (hyperlipidemia) Hypertension Idiopathic right ventricular dilation Kidney disease Leukopenia Medical marijuana use Migraine Morbid obesity On home oxygen therapy GENNARO (obstructive sleep apnea) Osteoarthritis Pancytopenia Pneumonia Pyuria Respiratory failure with hypoxia Respiratory insufficiency Respiratory tract infection due to COVID-19 virus Restrictive lung disease Right bundle branch block (RBBB) Right ventricular systolic dysfunction Sepsis Sleep apnea Substance abuse Thrombocytopenia Home Medications pantoprazole 40 mg tablet,delayed release 40 mg PO DAILY acid reflux 12/09/18 [History Last Taken 12/28/21] fluoxetine 20 mg capsule 20 mg PO DAILY anxiety 01/14/21 [History Last Taken 12/28/21] benztropine 0.5 mg tablet 0.5 mg PO BID PRN PRN shaking 03/08/21 [History Last Taken 12/29/21] magnesium oxide 400 mg PO DAILY supplement 06/08/21 [History Last Taken 12/29/21] hydroxyzine HCl 50 mg tablet 50 mg PO TID PRN PRN Itching 06/10/21 [History Last Taken Unknown] trazodone 100 mg tablet 100 mg PO QHS sleep 06/10/21 [History Last Taken 12/28/21] rosuvastatin 40 mg tablet 40 mg PO QHS cholesterol 07/19/21 [History Last Taken 12/28/21] thiamine HCl (vitamin B1) 50 mg tablet (Vitamin B-1) 50 mg PO TID supplement 07/19/21 [History Last Taken 12/28/21] folic acid 1 mg tablet 1 mg PO DAILY@0800 supplement 12/29/21 [History Last Taken Unknown] memantine 10 mg tablet 10 mg PO BID #0 tabs 12/31/21 [Rx Last Taken Unknown] potassium chloride 10 mEq tablet,extended release 20 meq PO BID #1 TAB 12/31/21 [Rx Last Taken Unknown] quetiapine 100 mg tablet 100 mg PO BID #0 tabs 12/31/21 [Rx Last Taken Unknown] Allergy/AdvReac Type Severity Reaction Status Date / Time house dust Allergy ITCHY EYES Verified 03/15/22 12:48 Penicillins Allergy Hives Verified 03/15/22 12:48 Seasonal Allergies: Uncoded Allergy ITCHY EYES Verified 03/15/22 12:48 Family History Father Colon cancer Mother Cancer pancreatic Surgical History History of appendectomy History of cholecystectomy History of hysterectomy History of tubal ligation Social History household members: none Smoking Status: Former smoker Tobacco: How many years used: 25 how long ago did patient quit smokin, 0.5ppd second hand exposure: Yes alcohol intake: former year quit: 2020 substance use type: marijuana ROS ROS ED Constitutional Constitutional ED: Denies chills or fever(s) Eyes Eyes: Denies change in vision or diplopia ENT ENT ED: Denies rhinorrhea or sore throat Cardiovascular Cardiovascular: Denies chest pain or palpitations Respiratory/Chest Respiratory/Chest: Denies cough or dyspnea Gastrointestinal Gastrointestinal: Denies abdominal pain or constipation Genitourinary Genitourinary ED: Denies dysuria or hematuria Musculoskeletal Musculoskeletal: Denies arthralgias Integumentary Denies abscess or Abrasions Neurologic Neurologic: Denies headache(s) or paresthesias Psychiatric Psychiatric: Denies anxiety EXAM Physical Exam Const Vital Signs: 03/15/22 12:42 Temperature 98.2 F Temperature Source Oral Pulse Rate 88 Respiratory Rate 16 Blood Pressure 90/67 Blood Pressure Mean 74 Pulse Ox 100 Oxygen Delivery Method Nasal Cannula Oxygen Flow Rate (L/min) 3 Positive well nourished General Appearance ED: NAD; Negative for pallor HEENT Reports moist mucous membranes Chest Wall inspection of chest normal Resp normal respiratory effort Auscultation: Negative for rales, rhonchi or wheezes Cardio regular rate and regular rhythm GI normal to inspection, nondistended, normoactive bowel sounds Extremity normal to inspection Neuro CN's II-XII intact bilaterally and no sensory deficits noted Sensorium / Orientation: alert and orientation impaired Motor Exam: strength 5/5 throughout Skin no rashes or lesions noted and no wounds General Skin Exam: Negative for jaundice or pallor MDM MDM MDM Narrative Medical decision making narrative: Patient presenting with confusion. She does have a history of dementia. There is no history of trauma. Her brother states that may be the medications that she takes. She is not on any opioids or benzodiazepines that I can see. CBC shows leukopenia which is chronic. Hemoglobin stable at 13.0. Platelets slightly low at 131 but this is actually higher than her previous in our system. Creatinine 1.35 and near baseline. Electrolytes unremarkable. Total bilirubin is elevated 1.80 but is typically elevated in her. EtOH is negative. Urine tox screen positive for MDMA and cannabinoids. Patient is known to use marijuana at home. I suspect that the MDMA is likely cross-reactive to her medications at home. She is having access to it. Urinalysis shows 500 leukocyte esterase with 25-50 white blood cells 1+ bacteria. There is 0-5 squamous epithelials. Given the patient's abnormal behavior I will treat her for UTI. She will be started on Keflex with first dose in the ER. Urine culture will be sent. I feel patient is stable for discharge home with her family. Impression: 1. History of dementia 2. UTI 3. Leukopenia 4. Thrombocytopenia Lab Data Attestation: I reviewed the patient's lab results. Labs: Laboratory Results - last 24 hr 03/15/22 03/15/22 03/15/22 13:40 13:40 14:05 WBC Cancelled Corrected WBC Cancelled RBC Cancelled Hgb Cancelled Hct Cancelled MCV Cancelled MCH Cancelled MCHC Cancelled RDW Std Deviation Cancelled RDW Coeff of Jaun Cancelled Plt Count Cancelled MPV Cancelled Immature Gran % (Auto) Cancelled Neut % (Auto) Cancelled Lymph % (Auto) Cancelled Island % (Auto) Cancelled Eos % (Auto) Cancelled Baso % (Auto) Cancelled Absolute Neuts (auto) Cancelled Absolute Lymphs (auto) Cancelled Total Counted Cancelled Neutrophils % (Manual) Cancelled Band Neutrophils % Cancelled Lymphocytes % (Manual) Cancelled Monocytes % (Manual) Cancelled Eosinophils % (Manual) Cancelled Basophils % (Manual) Cancelled Metamyelocytes % Cancelled Myelocytes % Cancelled Promyelocytes % Cancelled Blast Cells % Cancelled Plasma Cell % (Manual) Cancelled Other Cells % Cancelled Nucleated RBC % Cancelled Nucleated RBCs/100 WBC Cancelled Differential Comment Cancelled Diff Path Review Cancelled Hypersegmented Neuts Cancelled Atypical Lymphocytes Cancelled Reactive Lymphocytes Cancelled Smudge Cells Cancelled Toxic Granulation Cancelled Toxic Vacuolation Cancelled Dohle Bodies Cancelled Rocio Rods Cancelled Platelet Estimate Cancelled Plt Morphology Comment Cancelled RBC Morphology Cancelled Polychromasia Cancelled Hypochromasia Cancelled Poikilocytosis Cancelled Basophilic Stippling Cancelled Anisocytosis Cancelled Microcytosis Cancelled Macrocytosis Cancelled Spherocytes Cancelled Sickle Cells Cancelled Target Cells Cancelled Tear Drop Cells Cancelled Ovalocytes Cancelled Stomatocytes Cancelled [place] Bodies Cancelled Loa Cells Cancelled Bite Cells Cancelled Crenated Cell Cancelled Acanthocytes (Spur) Cancelled Rouleaux Cancelled Schistocytes Cancelled Sodium Cancelled Potassium Cancelled Chloride Cancelled Carbon Dioxide Cancelled Anion Gap Cancelled BUN Cancelled Creatinine Cancelled Estim Creat Clear Calc Cancelled Est GFR (MDRD) Af Amer Cancelled Est GFR (MDRD) Non-Af Cancelled BUN/Creatinine Ratio Cancelled Glucose Cancelled Calcium Cancelled Total Bilirubin Cancelled AST Cancelled ALT Cancelled Alkaline Phosphatase Cancelled Total Protein Cancelled Albumin Cancelled Globulin Cancelled Albumin/Globulin Ratio Cancelled Urine Color Urine Clarity Urine pH Ur Specific Superior Urine Protein Urine Glucose (UA) Urine Ketones Urine Occult Blood Urine Nitrite Urine Bilirubin Urine Urobilinogen Ur Leukocyte Esterase Urine RBC Urine WBC Ur Squamous Epith Cells Urine Bacteria Hyaline Casts Urine Mucus Urine Opiates Screen Urine Methadone Screen Ur Barbiturates Screen Ur Phencyclidine Scrn Ur Amphetamines Screen MDMA (Ecstasy) Screen U Benzodiazepines Scrn Urine Cocaine Screen U Cannabinoids Screen Ur Drug Screen Comment Ethyl Alcohol 5.0 03/15/22 03/15/22 03/15/22 14:05 14:05 15:09 WBC 4.0 L Corrected WBC RBC 4.77 Hgb 13.0 Hct 43.1 MCV 90.4 MCH 27.3 MCHC 30.2 L RDW Std Deviation 47.4 H RDW Coeff of Jaun 14.4 Plt Count 131 L MPV 10.1 Immature Gran % (Auto) 0.300 Neut % (Auto) 74.9 H Lymph % (Auto) 18.3 L Island % (Auto) 5.0 Eos % (Auto) 1.0 Baso % (Auto) 0.5 Absolute Neuts (auto) 3.0 Absolute Lymphs (auto) 0.73 L Total Counted Neutrophils % (Manual) Band Neutrophils % Lymphocytes % (Manual) Monocytes % (Manual) Eosinophils % (Manual) Basophils % (Manual) Metamyelocytes % Myelocytes % Promyelocytes % Blast Cells % Plasma Cell % (Manual) Other Cells % Nucleated RBC % 0 Nucleated RBCs/100 WBC Differential Comment Diff Path Review Hypersegmented Neuts Atypical Lymphocytes Reactive Lymphocytes Smudge Cells Toxic Granulation Toxic Vacuolation Dohle Bodies Rocio Rods Platelet Estimate Plt Morphology Comment RBC Morphology Polychromasia Hypochromasia Poikilocytosis Basophilic Stippling Anisocytosis Microcytosis Macrocytosis Spherocytes Sickle Cells Target Cells Tear Drop Cells Ovalocytes Stomatocytes [place] Bodies Roseann Cells Bite Cells Crenated Cell Acanthocytes (Spur) Rouleaux Schistocytes Sodium 144 Potassium 3.6 Chloride 108 H Carbon Dioxide 32.0 Anion Gap 4 L BUN 14 Creatinine 1.35 H Estim Creat Clear Calc 43.09 Est GFR (MDRD) Af Amer 51 L Est GFR (MDRD) Non-Af 43 L BUN/Creatinine Ratio 10.4 Glucose 85 Calcium 9.5 Total Bilirubin 1.80 H AST 30 ALT 24 Alkaline Phosphatase 133 H Total Protein 6.4 Albumin 3.6 Globulin 2.8 Albumin/Globulin Ratio 1.3 Urine Color Urine Clarity Urine pH Ur Specific Superior Urine Protein Urine Glucose (UA) Urine Ketones Urine Occult Blood Urine Nitrite Urine Bilirubin Urine Urobilinogen Ur Leukocyte Esterase Urine RBC Urine WBC Ur Squamous Epith Cells Urine Bacteria Hyaline Casts Urine Mucus Urine Opiates Screen NEGATIVE Urine Methadone Screen NEGATIVE Ur Barbiturates Screen NEGATIVE Ur Phencyclidine Scrn NEGATIVE Ur Amphetamines Screen NEGATIVE MDMA (Ecstasy) Screen POSITIVE H U Benzodiazepines Scrn NEGATIVE Urine Cocaine Screen NEGATIVE U Cannabinoids Screen POSITIVE H Ur Drug Screen Comment Ethyl Alcohol 03/15/22 15:09 WBC Corrected WBC RBC Hgb Hct MCV MCH MCHC RDW Std Deviation RDW Coeff of Jaun Plt Count MPV Immature Gran % (Auto) Neut % (Auto) Lymph % (Auto) Island % (Auto) Eos % (Auto) Baso % (Auto) Absolute Neuts (auto) Absolute Lymphs (auto) Total Counted Neutrophils % (Manual) Band Neutrophils % Lymphocytes % (Manual) Monocytes % (Manual) Eosinophils % (Manual) Basophils % (Manual) Metamyelocytes % Myelocytes % Promyelocytes % Blast Cells % Plasma Cell % (Manual) Other Cells % Nucleated RBC % Nucleated RBCs/100 WBC Differential Comment Diff Path Review Hypersegmented Neuts Atypical Lymphocytes Reactive Lymphocytes Smudge Cells Toxic Granulation Toxic Vacuolation Dohle Bodies Rocio Rods Platelet Estimate Plt Morphology Comment RBC Morphology Polychromasia Hypochromasia Poikilocytosis Basophilic Stippling Anisocytosis Microcytosis Macrocytosis Spherocytes Sickle Cells Target Cells Tear Drop Cells Ovalocytes Stomatocytes [place] Bodies Loa Cells Bite Cells Crenated Cell Acanthocytes (Spur) Rouleaux Schistocytes Sodium Potassium Chloride Carbon Dioxide Anion Gap BUN Creatinine Estim Creat Clear Calc Est GFR (MDRD) Af Amer Est GFR (MDRD) Non-Af BUN/Creatinine Ratio Glucose Calcium Total Bilirubin AST ALT Alkaline Phosphatase Total Protein Albumin Globulin Albumin/Globulin Ratio Urine Color Yellow Urine Clarity Sl. Cloudy Urine pH 7.0 Ur Specific Superior 1.015 Urine Protein 30 H Urine Glucose (UA) Normal Urine Ketones 5 H Urine Occult Blood Negative Urine Nitrite Negative Urine Bilirubin 1 H Urine Urobilinogen 1 H Ur Leukocyte Esterase 500 H Urine RBC 0 SEEN Urine WBC 25-50 SEEN Ur Squamous Epith Cells 0-5 SEEN Urine Bacteria 1+ Hyaline Casts 0-5 SEEN Urine Mucus 2+ Urine Opiates Screen Urine Methadone Screen Ur Barbiturates Screen Ur Phencyclidine Scrn Ur Amphetamines Screen MDMA (Ecstasy) Screen U Benzodiazepines Scrn Urine Cocaine Screen U Cannabinoids Screen Ur Drug Screen Comment Ethyl Alcohol Radiography Diagnostic Testing: Clinical Impression(s) from Imaging Studies Chest X-Ray 03/15/22 13:26 IMPRESSION: Elevation of the left hemidiaphragm with blunting of the left costophrenic angle and increased markings at the left lung base. Follow-up recommended. Electronically Signed: Kamran Velazquez MD at 13:56 EDT , Discharge Plan Triage Chief Complaint: Confusion ED Provider: Jackson Gordillo Dx/Rx/DC Orders Prescriptions: No Action pantoprazole 40 MG tablet 40 mg PO DAILY fluoxetine 20 mg Capsule 20 mg PO DAILY benztropine 0.5 mg tablet 0.5 mg PO BID PRN PRN (Reason: shaking) magnesium oxide 400 mg magnesium Tablet 400 mg PO DAILY hydroxyzine HCl 50 mg Tablet 50 mg PO TID PRN PRN (Reason: Itching) trazodone 100 mg Tablet 100 mg PO QHS thiamine HCl (vitamin B1) [Vitamin B-1] 50 mg Tablet 50 mg PO TID rosuvastatin 40 mg Tablet 40 mg PO QHS folic acid 1 mg tablet 1 mg PO DAILY@0800 quetiapine 100 mg Tablet 100 mg PO BID Qty: 0 0RF memantine 10 mg Tablet 10 mg PO BID Qty: 0 0RF potassium chloride 10 mEq tablet extended release 20 meq PO BID Qty: 1 0RF Primary Care Provider: Karl Moran Referrals: Karl Moran MD [Primary Care Provider] -
[2022-03-15 14:18] LABS: Absolute Lymphocyte Count 0.73 X10^3/uL (0.83-4.51); Basophil# 0.02 X10^3/uL; Basophil% 0.5 % (0-1); Eosinophil# 0.04 X10^3/uL; Hematocrit 43.1 % (37-47); Lymphocyte # 0.73 X10^3/ul (0.83-4.51); Lymphocyte % 18.3 % (19-41); Mean Corp Hgb Conc 30.2 g/dL (32-36); Mean Corpuscular Hgb 27.3 pg (27.0-32.0); Mean Corpuscular Volume 90.4 fL (81-99); Mean Platelet Vol. 10.1 fl (6.2-12.0); NRBC Flagged by Analyzer 0 % (0-5); Neutrophil # 2.98 X10^3/uL (2.7-7.7); Neutrophil % 74.9 % (47-70); Platelet Count 131 K/mm3 (150-450); RBC Distribution Width CV 14.4 % (11.6-14.6); RBC Distribution Width SD 47.4 fl (35.1-43.9); Red Blood Count 4.77 M/mm3 (4.2-5.4)
[2022-03-15 14:33] LABS: ALB/GLOB Ratio 1.3 RATIO (0.9-2.4); AST(SGOT) 30 U/L (15-37); Alanine Aminotransfer ALT/SGPT 24 U/L (13-56); Albumin, Serum 3.6 g/dL (3.2-5.0); Alkaline Phosphatase 133 U/L (45-117); Anion Gap 4 (5-15); BUN 14 mg/dL (7-18); BUN/Creat Ratio 10.4 RATIO (10-20); Calcium,Total 9.5 mg/dL (8.5-10.1); Chloride 108 mmol/L (98-107); Creatinine, Serum 1.35 mg/dL (0.55-1.02); EST Glomerular Filtration Rate 43 mL/min (>60); Est Glom Filt Rate - Afr Amer 51 mL/min (>60); Estimated Creatinine Clearance 43.09 ml/min; Globulin 2.8 g/dL (2.2-4.2); Glucose 85 mg/dL (74-106); Potassium 3.6 mmol/L (3.5-5.1); Protein, Total 6.4 g/dL (6.4-8.2); Sodium Level 144 mmol/L (136-145)
[2022-03-15 15:16] LABS: Red Blood Cells-Urine 0 SEEN /hpf (0-5)
[2022-03-15 15:22] LABS: Color, Urine Yellow (Yellow); Glucose, Dipstick Normal (Normal); Ketone-Dipstick 5 mg/dl (Negative); Leukocyte Esterase-Dipstick 500 /ul (Negative); Nitrite-Dipstick Negative (Negative); Occult Blood-Urine Negative /ul (Negative); Protein-Dipstick 30 mg/dl (Negative); Specific Gravity, Urine 1.015 (1.002-1.030); Urine Clarity Sl. Cloudy (Clear); Urine Urobilinogen 1 mg/dl (Normal)
[2022-03-15 15:23] LABS: Urine Bilirubin Dipstick 1 mg/dL (Negative)
[2022-03-15 15:28] LABS: Bacteria 1+ /hpf (None Seen); Hyaline Cast 0-5 SEEN /lpf (0-5); Mucous, Urine 2+ /hpf (<or=2+); Squamous Epithelial Cells - UA 0-5 SEEN /hpf (5-10); White Blood Cells 25-50 SEEN /hpf (0-5)
[2022-03-15 15:34] LABS: Amphetamine Urine VISTA NEGATIVE (<1000 ng/mL); Barbiturate Urine VISTA NEGATIVE (< 200 ng/mL); Benzodiazepine Urine VISTA NEGATIVE (< 200 ng/mL); Cocaine Urine VISTA NEGATIVE (< 300 ng/mL); Ecstacy Urine VISTA POSITIVE (< 500 ng/mL); Methadone Urine VISTA NEGATIVE (< 300 ng/mL); PCP Urine VISTA NEGATIVE (< 25 ng/mL); THC Urine VISTA POSITIVE (< 50 ng/mL); Vista UDS pH Range 6
[2022-03-15] MEDS: Cephalexin 250 MG Capsule 500 MG PO (16:01)
--- NOTE | 2022-03-15 17:07 | ED.RN ---
CALLED DAUGHTER TO [employer]OMOT[employer] TI[employer] TECHNICIAN PT, DAUGHTER STATED THAT HER AUNT WOULD BE IN TO GET HER.
== END 2022-03-15 17:17 | disposition home or self-care (01) ==
PROVIDERS: Emergency Provider Student in an Organized Health Care Education/Training Program; PCP Family Medicine; Visit Provider Student in an Organized Health Care Education/Training Program
DX: R41.0 Disorientation, unspecified (principal); F03.90 Unspecified dementia, unspecified severity, without behavioral disturbance, psychotic disturbance, mood disturbance, and anxiety; J44.9 Chronic obstructive pulmonary disease, unspecified; D69.6 Thrombocytopenia, unspecified; N39.0 Urinary tract infection, site not specified; E78.5 Hyperlipidemia, unspecified; N18.1 Chronic kidney disease, stage 1; D72.819 Decreased white blood cell count, unspecified; I12.9 Hypertensive chronic kidney disease with stage 1 through stage 4 chronic kidney disease, or unspecified chronic kidney disease; Z79.899 Other long term (current) drug therapy
CPT/HCPCS: 71045; 80053; 80307; 81001; 82077; 85025; 87086; 87088; 93005; 99283; A4216

== ENCOUNTER → 2022-06-23 | Outpatient (CLI) | payer MEDICARE, MEDICAID, SELFPAY ==
--- NOTE | 2022-06-23 14:18 | BI_ITS ---
MAMMOGRAPHY - BILATERAL DIAGNOSTIC REASON FOR EXAM: Female, 61 years old. Left breast lump following a recent fall. PERTINENT HISTORY: Non-contributory. TECHNIQUE: Digital bilateral breast kyle (3D mammographic acquisition) in the CC and MLO projections. 2-D mediolateral oblique (MLO) and craniocaudad (CC) views of both breasts were obtained. CAD: Full Field Digital Mammography with Computer Added Detection was performed. COMPARISON: Comparison is made with prior study dated 04/21/2005. FINDINGS: Breast Composition: The breasts are almost entirely fatty. The palpable lump corresponds to a 1.7 cm x 1.3 cm nodular density in the anterior upper lateral portion of the left breast. Correlation with ultrasound is recommended. No other significant abnormalities are identified. BI/DIAG MAMM W/CAD, BILAT IMPRESSION: The palpable lump corresponds to a 1.7 cm x 1.3 cm nodule in the anterior upper lateral portion of the left breast. Correlation with ultrasound is recommended. ASSESSMENT CATEGORY: BIRADS Category 0: Incomplete. Need additional imaging evaluation. A letter regarding these results will be sent to the patient by the facility within 30 days. Approximately 10% of breast cancers are not detected by mammography. A normal mammogram should not delay biopsy of a clinically suspicious abnormality. Electronically Signed: Kamran Velazquez MD at 15:07 EST ,
--- NOTE | 2022-06-23 14:19 | US_ITS ---
STUDY: ULTRASOUND BREAST - LEFT REASON FOR EXAM: Female, 61 years old. Left breast lump following injury. TECHNIQUE: Axial and longitudinal images of the LEFT breast were performed with a high resolution ultrasound transducer. # OF IMAGES: 13 COMPARISON: Comparison is made with prior mammogram done earlier today. FINDINGS: LEFT Breast: The mammographic abnormality corresponds to a 1.2 cm x 1.8 cm x 1.2 cm complex cystic structure with low-level echoes at the 1 o''clock position breast 6 cm. Follow-up sonogram in 4 months is recommended to assess possible resorption of hematoma. US/Breast Limited Unilateral IMPRESSION: The palpable abnormality corresponds to 1.2 cm x 1.8 cm x 1.2 sono complex cystic structure with low level echoes. This may represent a resolving hematoma. A sonogram in 4 months is recommended. ASSESSMENT CATEGORY: BIRADS Category 3: Probably Benign - Short-Interval Follow-up Suggested. A letter regarding these results will be sent to the patient by the facility within 30 days. Electronically Signed: Kamran Velazquez MD at 15:39 EST ,
== END | disposition home or self-care (01) ==
LOC: OPBI 14:13
PROVIDERS: PCP Family Medicine; Referring Provider Registered Nurse; Visit Provider Registered Nurse
DX: N63.22 Unspecified lump in the left breast, upper inner quadrant (principal); R92.8 Other abnormal and inconclusive findings on diagnostic imaging of breast
CPT/HCPCS: 76642; 77062; 77066; G0279

== ENCOUNTER 2022-07-16 17:27 | Inpatient (IN) | payer MEDICARE, MEDICAID, SELFPAY ==
[2022-07-16 17:28] VITALS: BP 165/106; PULSE 102; RESP 18; TEMP 36.8; O2SAT 100; BMI 35.5
--- NOTE | 2022-07-16 18:01 | EDS_ITS ---
HPI <LUCA Kiran - Last Filed: 07/16/22 19:33> History of Present Illness Chief Complaint: ETOH Intox Narrative Narrative: Patient is a 61-year-old female with history of respiratory failure, COPD on 3 L of nasal cannula daily, pulmonary hypertension, alcoholism who presents to the emergency department for detox from alcohol. Patient states that over the last 48 hours she has been trying to wean herself off of alcohol, however today she was taking sips secondary to the withdrawal symptoms. Patient states that she shakes, becomes violently ill. Patient also states that for the last 3 days has been having a cough, concerning for fever and chills, she did test positive for COVID-19 today on a home test. Patient denies any nausea or vomiting. Patient's last time she tried to quit drinking was greater than 1 year ago, she has been here for this in the last several months. PFS <LUCA Kiran - Last Filed: 07/16/22 19:33> [facility] Medical History (Updated 07/16/22 @ 21:11 by Willow Sims) Abdominal pain Abnormal liver CT Admitted to alcohol detoxification center Alcohol abuse Alcohol withdrawal Anemia Anxiety Arthritis Asthma BiPAP (biphasic positive airway pressure) dependence Bronchiectasis Bronchitis Chronic renal failure Chronic renal insufficiency, stage I Closed fracture of fibula, proximal, left Colitis Colitis with rectal bleeding Contusion of left hip Contusion of left shoulder Contusion of rib on right side Contusion of scalp COPD (chronic obstructive pulmonary disease) Dementia Depression DVT (deep venous thrombosis) Endocarditis Essential (primary) hypertension Former smoker Frequent falls Gastritis Gastroesophageal reflux disease History of diarrhea History of umbilical hernia HLD (hyperlipidemia) Hypertension Idiopathic right ventricular dilation Kidney disease Leukopenia Medical marijuana use Migraine Morbid obesity On home oxygen therapy GENNARO (obstructive sleep apnea) Osteoarthritis Pancytopenia Pneumonia Pyuria Respiratory failure with hypoxia Respiratory insufficiency Respiratory tract infection due to COVID-19 virus Restrictive lung disease Right bundle branch block (RBBB) Right ventricular systolic dysfunction Sepsis Sleep apnea Substance abuse Thrombocytopenia Home Medications pantoprazole 40 mg tablet,delayed release 40 mg PO DAILY acid reflux 12/09/18 [History Last Taken 07/15/22 08:00] fluoxetine 20 mg capsule 40 mg PO DAILY anxiety 01/14/21 [History Last Taken 07/15/22 08:00] benztropine 0.5 mg tablet 0.5 mg PO BID PRN PRN tremors 10/05/21 [History Last Taken 07/15/22 20:00] magnesium oxide 400 mg PO DAILY supplement 06/08/21 [History Last Taken 07/15/22 08:00] trazodone 100 mg tablet 100 mg PO QHS sleep 06/10/21 [History Last Taken 07/15/22 20:00] rosuvastatin 40 mg tablet 40 mg PO QHS cholesterol 07/19/21 [History Last Taken 07/15/22 20:00] thiamine HCl (vitamin B1) 50 mg tablet (Vitamin B-1) 50 mg PO DAILY supplement 07/19/21 [History Last Taken 07/15/22 08:00] folic acid 1 mg tablet 1 mg PO DAILY@0800 supplement 12/29/21 [History Last Taken 07/15/22 08:00] cyclobenzaprine 10 mg tablet 10 mg PO TID PRN muscle spasm #30 tabs 04/17/22 [Rx Last Taken Unknown] clonidine HCl 0.1 mg tablet 0.1 mg PO BID anxiety 07/16/22 [History Last Taken 07/15/22 20:00] hydroxyzine pamoate 50 mg capsule (Vistaril) 50 mg PO Q8H PRN PRN Anxiety 07/16/22 [History Last Taken Unknown] melatonin 10 mg tablet 10 mg PO QHS PRN Sleep 07/16/22 [History Last Taken Unknown] memantine 10 mg tablet (Namenda) 10 mg PO BID Alzheimer's 07/16/22 [History Last Taken 07/15/22 20:00] potassium chloride 10 mEq tablet,extended release 10 meq PO BID supplement 07/16/22 [History Last Taken 07/15/22 20:00] prochlorperazine maleate 5 mg tablet (Compazine) 5 mg PO Q6H PRN PRN Nausea 07/16/22 [History Last Taken Unknown] rivastigmine tartrate 1.5 mg capsule 1.5 mg PO BID Alzheimer's 07/16/22 [History Last Taken 07/15/22 20:00] Allergy/AdvReac Type Severity Reaction Status Date / Time house dust Allergy ITCHY EYES Verified 07/16/22 20:46 Penicillins Allergy Hives Verified 07/16/22 20:46 Seasonal Allergies: Uncoded Allergy ITCHY EYES Verified 02/12/23 20:46 Family History Father Colon cancer Mother Cancer pancreatic Surgical History History of appendectomy History of cholecystectomy History of hysterectomy History of tubal ligation Social History (Updated 07/16/22 @ 19:[address] Mckenzie Austin MD) household members: none Smoking Status: Former smoker Tobacco: How many years used: 25 how long ago did patient quit smokin, 0.5ppd second hand exposure: Yes alcohol intake: current details: 2-3 months of 1 bottle wine/day. substance use type: marijuana ROS <LUCA Kiran - Last Filed: 07/16/22 19:33> ROS ED ROS Narrative Constitutional: Negative for weight loss, weakness. Positive for fever and chills Eyes: Negative for vision loss, vision change, double vision ENT: Negative for any sore throat, ear pain, congestion Cardiovascular: Negative for any chest pain, tightness, palpitations Respiratory: Negative for any sputum production, hemoptysis, dyspnea, dyspnea on exertion, orthopnea. Positive for cough Gastrointestinal: Negative for any abdominal pain, nausea, vomiting, diarrhea, constipation, blood in stool, blood in vomit : Negative for any urinary frequency, dysuria, retention, blood in urine Muscle skeletal: Negative for any muscle joint pain, stiffness, arthralgias, neck pain, back pain. Positive for myalgias Neurological: Negative for any headache, syncope, numbness or tingling, dizziness Skin: Negative for any rashes, lumps, itching, abrasions, lacerations Psychiatric: Negative for any depression, anxiety, stress, suicidal ideation, homicidal ideation Hematologic: Negative for any easy bruising, excessive bruising, easy bleeding Allergies: Negative for any eczema, hives, rash EXAM <LUCA Kiran - Last Filed: 07/16/22 19:33> Physical Exam Narrative Exam Narrative: Vital signs reviewed. Patient on her normal 3 L is in no distress. HEET: Head normocephalic atraumatic, TMs clear bilaterally. Posterior pharynx is clear, moist mucous membranes. Nares clear bilaterally. Slight scaling or icterus Neck: Supple with no lymphadenopathy or tenderness. No signs of meningismus, negative jolt sign. Cardiac: Regular rate and rhythm no murmurs gallops or rubs, equal peripheral pulses bilaterally. Respiratory: Lungs clear to auscultation bilaterally diminished in lower bases. No chest tenderness. Abdomen: Soft, nontender, nondistended. No abdominal bruit or pulsatile masses. No hepatosplenomegaly Extremities: No peripheral edema, no signs of gross trauma or deformity. Active full range of motion of all extremities. Neuro: Cranial nerves II through XII intact, no focal neurological deficits. Skin: Clean dry and intact with no rash, purpura, petechiae, vesicles or pustules. Backs/flank: No CVA tenderness, no midline spinal tenderness, no deformity. Psych: Normal mood and affect. No SI, HI or acute psychosis. Const Vital Signs: 07/16/22 17:28 Temperature 98.3 F Temperature Source Temporal Pulse Rate 102 H Respiratory Rate 18 Blood Pressure 165/106 H Blood Pressure Mean 125 Pulse Ox 100 Oxygen Delivery Method Nasal Cannula Oxygen Flow Rate (L/min) 3 Positive well nourished and well developed General Appearance ED: well developed <Dr. Mohsen Melgar DO - Last Filed: 07/16/22 22:02> Physical Exam Const Vital Signs: 07/16/22 17:28 Temperature 98.3 F Temperature Source Temporal Pulse Rate 102 H Respiratory Rate 18 Blood Pressure 165/106 H Blood Pressure Mean 125 Pulse Ox 100 Oxygen Delivery Method Nasal Cannula Oxygen Flow Rate (L/min) 3 MDM <LUCA Kiran - Last Filed: 07/16/22 19:33> [facility] Lab Data Attestation: I reviewed the patient's lab results. Labs: Laboratory Results - last 24 hr 07/16/22 07/16/22 07/16/22 18:20 18:20 18:20 WBC 5.4 RBC 4.69 Hgb 14.2 Hct 45.4 MCV 96.8 MCH 30.3 MCHC 31.3 L RDW Std Deviation 49.5 H RDW Coeff of Jaun 14.0 Plt Count 211 MPV 10.5 Immature Gran % (Auto) 0.200 Neut % (Auto) 71.0 H Lymph % (Auto) 19.8 [place] % (Auto) 8.6 Eos % (Auto) 0.2 Baso % (Auto) 0.2 Absolute Neuts (auto) 3.8 Absolute Lymphs (auto) 1.06 Nucleated RBC % 0 Sodium 135 L Potassium 4.4 Chloride 101 Carbon Dioxide 23.0 Anion Gap 11 BUN 12 Creatinine 0.80 Estim Creat Clear Calc 72.72 Est GFR (MDRD) Af Amer 94 Est GFR (MDRD) Non-Af 78 BUN/Creatinine Ratio 15.0 Glucose 105 Calcium 9.2 Phosphorus Magnesium Total Bilirubin 1.30 H Direct Bilirubin 0.19 AST 46 H ALT 30 Alkaline Phosphatase 120 H Total Protein 7.2 Albumin 3.6 Globulin 3.6 Urine Color Urine Clarity Urine pH Ur Specific [place] Urine Protein Urine Glucose (UA) Urine Ketones Urine Occult Blood Urine Nitrite Urine Bilirubin Urine Urobilinogen Ur Leukocyte Esterase Urine RBC Urine WBC Ur Squamous Epith Cells Urine Bacteria Urine Mucus Urine Opiates Screen Urine Methadone Screen Ur Barbiturates Screen Ur Phencyclidine Scrn Ur Amphetamines Screen MDMA (Ecstasy) Screen U Benzodiazepines Scrn Urine Cocaine Screen U Cannabinoids Screen Ur Drug Screen Comment Ethyl Alcohol 119.0 07/16/22 07/16/22 07/16/22 18:20 19:15 19:15 WBC RBC Hgb Hct MCV MCH MCHC RDW Std Deviation RDW Coeff of Jaun Plt Count MPV Immature Gran % (Auto) Neut % (Auto) Lymph % (Auto) [place] % (Auto) Eos % (Auto) Baso % (Auto) Absolute Neuts (auto) Absolute Lymphs (auto) Nucleated RBC % Sodium Potassium Chloride Carbon Dioxide Anion Gap BUN Creatinine Estim Creat Clear Calc Est GFR (MDRD) Af Amer Est GFR (MDRD) Non-Af BUN/Creatinine Ratio Glucose Calcium Phosphorus 2.2 L Magnesium 2.3 Total Bilirubin Direct Bilirubin AST ALT Alkaline Phosphatase Total Protein Albumin Globulin Urine Color Yellow Urine Clarity Clear Urine pH 6.5 Ur Specific [place] 1.015 Urine Protein 500 H Urine Glucose (UA) Normal Urine Ketones Negative Urine Occult Blood 50 H Urine Nitrite Negative Urine Bilirubin Negative Urine Urobilinogen 1 H Ur Leukocyte Esterase 25 H Urine RBC 0-5 SEEN Urine WBC 5-10 SEEN Ur Squamous Epith Cells 0-5 SEEN Urine Bacteria 0 SEEN Urine Mucus 0 SEEN Urine Opiates Screen NEGATIVE Urine Methadone Screen NEGATIVE Ur Barbiturates Screen NEGATIVE Ur Phencyclidine Scrn NEGATIVE Ur Amphetamines Screen NEGATIVE MDMA (Ecstasy) Screen NEGATIVE U Benzodiazepines Scrn NEGATIVE Urine Cocaine Screen NEGATIVE U Cannabinoids Screen POSITIVE H Ur Drug Screen Comment Ethyl Alcohol Radiography Diagnostic Testing: Clinical Impression(s) from Imaging Studies Chest X-Ray 07/16/22 18:06 IMPRESSION: Normal x-ray examination of the chest. Electronically Signed: Bao White MD at 18:50 EST , Treatment and Re-Evaluation Narrative: All radiologic examinations were read, reviewed by the emergency department attending. From these reads, a plan of care will be put in place. Patient appears generally well, patient is stable on her 2 L of oxygen. Patient presents to the emergency department for alcohol detox. She also states she has not been feeling well recently and tested herself for COVID at home and it was positive. Patient did receive basic laboratory values, patient's CBC was unremarkable, chemistries were unremarkable, patient's total bilirubin was 1.3, compared to March 2022, this is improvement. Patient's AST was 46 ALT was within normal limits. Alkaline phosphatase was slightly elevated at 120. Urine drug screen is still pending. Patient did receive a rapid COVID, influenza test here this was negative. Likely the patient could be suffering from alcohol withdrawal which does mimic viral-like symptoms. Consider CT of the chest however that was not necessary. Patient's chest x-ray was unremarkable. Patient was given at 1 mg of IV Ativan for her alcohol withdrawal symptoms. She was given IV fluids. Patient remained stable. Did speak with hospitalist, patient stable for admission. <Dr. Mohsen Melgar, DO - Last Filed: 07/16/22 22:02> MDM MDM Narrative Medical decision making narrative: Interventions / MDM: Differential diagnosis:Alcohol dependence, COVID-19 infection, viral syndrome Diagnosis considered but do not suspect: N/A My EKG interpretation: N/A Imaging independently reviewed and interpreted by myself: Chest x-ray: No acute process External documents reviewed: N/A Test considered but not ordered:N/A ED course: Attending note: Patient seen and evaluated with collections officer. I perform my own [id number] evaluation. I agree with the plan of work-up. Here for alcohol detox. Daily wine use up to 1 L. Drinks to keep from having tremors. No withdrawal seizures. No homicidal or suicidal ideations. Has detox in the p ast. Additional URI symptoms 3 days worsening states had a COVID test positive today. She is vaccinated. She has had COVID in the past requiring hospitalization. She is in agreement for treatment for COVID if indicated. Exam alert nontoxic chronic oxygen stable no respiratory distress. Clinically sober. Her last drink was 3 hours ago. Medical clearance labs obtained stable. White count 5.4 chest x-ray negative. Alcohol at 119. Treated with Ativan for anxiety symptoms and tremors. Discussed with hospitalist service for admission. Rapid COVID-negative PCR sent due to reported positive test at home. Re-evaluation: stable Disposition discussed with patient/family/significant other: Patient Case discussed with consulting clinician: Hospitalist Lab Data Labs: Laboratory Results - last 24 hr 07/16/22 07/16/22 07/16/22 18:20 18:20 18:20 WBC 5.4 RBC 4.69 Hgb 14.2 Hct 45.4 MCV 96.8 MCH 30.3 MCHC 31.3 L RDW Std Deviation 49.5 H RDW Coeff of Jaun 14.0 Plt Count 211 MPV 10.5 Immature Gran % (Auto) 0.200 Neut % (Auto) 71.0 H Lymph % (Auto) 19.8 [place] % (Auto) 8.6 Eos % (Auto) 0.2 Baso % (Auto) 0.2 Absolute Neuts (auto) 3.8 Absolute Lymphs (auto) 1.06 Nucleated RBC % 0 Sodium 135 L Potassium 4.4 Chloride 101 Carbon Dioxide 23.0 Anion Gap 11 BUN 12 Creatinine 0.80 Estim Creat Clear Calc 72.72 Est GFR (MDRD) Af Amer 94 Est GFR (MDRD) Non-Af 78 BUN/Creatinine Ratio 15.0 Glucose 105 Calcium 9.2 Phosphorus Magnesium Total Bilirubin 1.30 H Direct Bilirubin 0.19 AST 46 H ALT 30 Alkaline Phosphatase 120 H Total Protein 7.2 Albumin 3.6 Globulin 3.6 Urine Color Urine Clarity Urine pH Ur Specific [place] Urine Protein Urine Glucose (UA) Urine Ketones Urine Occult Blood Urine Nitrite Urine Bilirubin Urine Urobilinogen Ur Leukocyte Esterase Urine RBC Urine WBC Ur Squamous Epith Cells Urine Bacteria Urine Mucus Urine Opiates Screen Urine Methadone Screen Ur Barbiturates Screen Ur Phencyclidine Scrn Ur Amphetamines Screen MDMA (Ecstasy) Screen U Benzodiazepines Scrn Urine Cocaine Screen U Cannabinoids Screen Ur Drug Screen Comment Ethyl Alcohol 119.0 07/16/22 07/16/22 07/16/22 18:20 19:15 19:15 WBC RBC Hgb Hct MCV MCH MCHC RDW Std Deviation RDW Coeff of Jaun Plt Count MPV Immature Gran % (Auto) Neut % (Auto) Lymph % (Auto) [place] % (Auto) Eos % (Auto) Baso % (Auto) Absolute Neuts (auto) Absolute Lymphs (auto) Nucleated RBC % Sodium Potassium Chloride Carbon Dioxide Anion Gap BUN Creatinine Estim Creat Clear Calc Est GFR (MDRD) Af Amer Est GFR (MDRD) Non-Af BUN/Creatinine Ratio Glucose Calcium Phosphorus 2.2 L Magnesium 2.3 Total Bilirubin Direct Bilirubin AST ALT Alkaline Phosphatase Total Protein Albumin Globulin Urine Color Yellow Urine Clarity Clear Urine pH 6.5 Ur Specific [place] 1.015 Urine Protein 500 H Urine Glucose (UA) Normal Urine Ketones Negative Urine Occult Blood 50 H Urine Nitrite Negative Urine Bilirubin Negative Urine Urobilinogen 1 H Ur Leukocyte Esterase 25 H Urine RBC 0-5 SEEN Urine WBC 5-10 SEEN Ur Squamous Epith Cells 0-5 SEEN Urine Bacteria 0 SEEN Urine Mucus 0 SEEN Urine Opiates Screen NEGATIVE Urine Methadone Screen NEGATIVE Ur Barbiturates Screen NEGATIVE Ur Phencyclidine Scrn NEGATIVE Ur Amphetamines Screen NEGATIVE MDMA (Ecstasy) Screen NEGATIVE U Benzodiazepines Scrn NEGATIVE Urine Cocaine Screen NEGATIVE U Cannabinoids Screen POSITIVE H Ur Drug Screen Comment Ethyl Alcohol Radiography Diagnostic Testing: Clinical Impression(s) from Imaging Studies Chest X-Ray 07/16/22 18:06 IMPRESSION: Normal x-ray examination of the chest. Electronically Signed: Bao White MD at 18:50 EST , Discharge Plan Dx/Rx/DC Orders Clinical Impression: Alcohol withdrawal, Viral syndrome Disposition Disposition: Acute Care Hospital [facility] Discharge Date/Time: 07/16/22 20:21
--- NOTE | 2022-07-16 18:06 | RAD_ITS ---
STUDY: X-RAY CHEST REASON FOR EXAM: Female, 61 years old. cough TECHNIQUE: Single frontal view of the chest. COMPARISON: March 15, 2022 FINDINGS: The lungs are clear and expanded. There is no demonstrated pleural abnormality. Normal size heart. Normal mediastinum and myriam. Normal visualized pulmonary arteries. Normal visualized aortic arch and descending thoracic aorta. Normal visualized thoracic spine. Normal visualized ribs, clavicles, and shoulders. There is no demonstrated abnormality of the visualized soft tissue structures of the upper abdomen. RAD/Chest 1 View (Portable) IMPRESSION: Normal x-ray examination of the chest. Electronically Signed: Bao White MD at 18:50 EST ,
[2022-07-16] MEDS: LORazepam 2 MG/ML Syringe 1 MG IV (18:22)
[2022-07-16 18:34] LABS: Absolute Lymphocyte Count 1.06 X10^3/uL (0.83-4.51); Absolute Neutrophil Count 3.8 X10^3/uL (2.0-7.7); Basophil# 0.01 X10^3/uL; Basophil% 0.2 % (0-1); Eosinophil# 0.01 X10^3/uL; Eosinophils% 0.2 % (0-5); Hematocrit 45.4 % (37-47); Hemoglobin 14.2 g/dL (12.0-15.0); Lymphocyte # 1.06 X10^3/ul (0.83-4.51); Lymphocyte % 19.8 % (19-41); Mean Corp Hgb Conc 31.3 g/dL (32-36); Mean Corpuscular Hgb 30.3 pg (27.0-32.0); Mean Corpuscular Volume 96.8 fL (81-99); Mean Platelet Vol. 10.5 fl (6.2-12.0); Monocyte# 0.46 X10^3/uL; Monocyte% 8.6 % (0-10); NRBC Flagged by Analyzer 0 % (0-5); Platelet Count 211 K/mm3 (150-450); RBC Distribution Width SD 49.5 fl (35.1-43.9); Red Blood Count 4.69 M/mm3 (4.2-5.4); White Blood Count 5.4 K/mm3 (4.4-11.0)
[2022-07-16 18:56] LABS: AST(SGOT) 46 U/L (15-37); Alanine Aminotransfer ALT/SGPT 30 U/L (13-56); Albumin, Serum 3.6 g/dL (3.2-5.0); Alkaline Phosphatase 120 U/L (45-117); Anion Gap 11 (5-15); BUN 12 mg/dL (7-18); Bilirubin, Direct 0.19 mg/dL (0.00-0.30); Calcium,Total 9.2 mg/dL (8.5-10.1); Chloride 101 mmol/L (98-107); EST Glomerular Filtration Rate 78 mL/min (>60); Est Glom Filt Rate - Afr Amer 94 mL/min (>60); Estimated Creatinine Clearance 72.72 ml/min; Globulin 3.6 g/dL (2.2-4.2); Glucose 105 mg/dL (74-106); Potassium 4.4 mmol/L (3.5-5.1); Protein, Total 7.2 g/dL (6.4-8.2); Sodium Level 135 mmol/L (136-145)
[2022-07-16] MEDS: Ondansetron 4 MG/2 ML Vial IV (19:05)
[2022-07-16 19:24] LABS: Bacteria 0 SEEN /hpf (None Seen); Mucous, Urine 0 SEEN /hpf (<or=2+)
[2022-07-16 19:25] LABS: Color, Urine Yellow (Yellow); Glucose, Dipstick Normal (Normal); Ketone-Dipstick Negative (Negative); Leukocyte Esterase-Dipstick 25 /ul (Negative); Nitrite-Dipstick Negative (Negative); Occult Blood-Urine 50 /ul (Negative); Protein-Dipstick 500 mg/dl (Negative); Specific Gravity, Urine 1.015 (1.002-1.030); Urine Bilirubin Dipstick Negative (Negative); Urine Clarity Clear (Clear); Urine Urobilinogen 1 mg/dl (Normal); Urine pH 6.5 (5.0 - 8.0)
[2022-07-16 19:43] LABS: White Blood Cells 5-10 SEEN /hpf (0-5)
--- NOTE | 2022-07-16 19:43 | HP.PCM.HOS_ITS ---
HPI - General General Date of Admission: 07/16/22 Date of Service: 07/16/22 Chief Complaint: Acute EtOH Withdrawal, recent cough, dyspnea, wheezing. HPI Narrative The patient is a 61 y/o F w/ PMHx: Chronic dementia likely alcohol component r elated with no behavioral disturbance history, HTN, HLD, Hx VTE (DVT), COPD/Asthma with chronic hypoxic respiratory failure, Chronic anemia, Chronic thrombocytopenia, Anxiety and Depression, EtOH abuse with associated Chronic Liver disease w/ Chronic Bilirubin/LFT elevations, GENNARO on BIPAP q HS, Former tobacco use who presents to the [facility] ED on 07/16/22 with history of previously achieving sobriety starting in 2020 however she started to drink again over the last 2 to 3 months with at least 1 bottle of wine daily, recently been attempting to wean herself off of alcohol over the last 48 hours with sips occasionally with worsening withdrawal symptoms however she is began to have extreme tremors, tactile disturbances, agitation with nausea and emesis with also concurrently noted increased cough above her baseline over the last several days with concern for chills as well as subjective fever at home with a home COVID test noted to be positive on day of presentation prompt eventual ED evaluation. Work-up in the ED included T98.3, heart rate 102, BP 165/106, respiratory rate 18, 100% on 3 L nasal cannula, CBC with WC 5.4, hemoglobin 14.2, platelet 211 without marked shift, CMP with sodium 135, T. bili 1.30, AST/LT 46/30, alk phos 1 2, ethyl alcohol level 119, chest x-ray with no acute cardiopulmonary finding, rapid COVID and influenza antigen negative. Patient on evaluation does request that none of her family be notified that she has been admitted. In the ED patient ministered Zofran 4 mg IV x1 as well as Ativan 1 mg IV times a total of 2 thus far. [facility] Medical History Abdominal pain Abnormal liver CT Admitted to alcohol detoxification center Alcohol abuse Alcohol withdrawal Anemia Anxiety Arthritis Asthma BiPAP (biphasic positive airway pressure) dependence Bronchiectasis Bronchitis Chronic renal failure Chronic renal insufficiency, stage I Closed fracture of fibula, proximal, left Colitis Colitis with rectal bleeding Contusion of left hip Contusion of left shoulder Contusion of rib on right side Contusion of scalp COPD (chronic obstructive pulmonary disease) Dementia Depression DVT (deep venous thrombosis) Endocarditis Essential (primary) hypertension Former smoker Frequent falls Gastritis Gastroesophageal reflux disease History of diarrhea History of umbilical hernia HLD (hyperlipidemia) Hypertension Idiopathic right ventricular dilation Kidney disease Leukopenia Medical marijuana use Migraine Morbid obesity On home oxygen therapy GENNARO (obstructive sleep apnea) Osteoarthritis Pancytopenia Pneumonia Pyuria Respiratory failure with hypoxia Respiratory insufficiency Respiratory tract infection due to COVID-19 virus Restrictive lung disease Right bundle branch block (RBBB) Right ventricular systolic dysfunction Sepsis Sleep apnea Substance abuse Thrombocytopenia Home Medications pantoprazole 40 mg tablet,delayed release 40 mg PO DAILY acid reflux 12/09/18 [History Last Taken 12/28/21] fluoxetine 20 mg capsule 20 mg PO DAILY anxiety 01/14/21 [History Last Taken 12/28/21] benztropine 0.5 mg tablet 0.5 mg PO BID PRN PRN shaking 03/08/21 [History Last Taken 12/29/21] magnesium oxide 400 mg PO DAILY supplement 06/08/21 [History Last Taken 12/29/21] trazodone 100 mg tablet 100 mg PO QHS sleep 06/10/21 [History Last Taken 12/28/21] rosuvastatin 40 mg tablet 40 mg PO QHS cholesterol 07/19/21 [History Last Taken 12/28/21] thiamine HCl (vitamin B1) 50 mg tablet (Vitamin B-1) 50 mg PO TID supplement 07/19/21 [History Last Taken 12/28/21] folic acid 1 mg tablet 1 mg PO DAILY@0800 supplement 12/29/21 [History Last Taken Unknown] memantine 10 mg tablet 10 mg PO BID #0 tabs 12/31/21 [Rx Last Taken Unknown] potassium chloride 10 mEq tablet,extended release 20 meq PO BID #1 TAB 12/31/21 [Rx Last Taken Unknown] cyclobenzaprine 10 mg tablet 10 mg PO TID PRN muscle spasm #30 tabs 04/17/22 [Rx Last Taken Unknown] Allergy/AdvReac Type Severity Reaction Status Date / Time house dust Allergy ITCHY EYES Verified 07/16/22 17:33 Penicillins Allergy Hives Verified 07/16/22 17:33 Seasonal Allergies: Uncoded Allergy ITCHY EYES Verified 07/16/22 17:33 Family History Father Colon cancer Mother Cancer pancreatic Surgical History History of appendectomy History of cholecystectomy History of hysterectomy History of tubal ligation Social History (Updated 07/16/22 @ 19:[address] Mckenzie Austin MD) household members: none Smoking Status: Former smoker Tobacco: How many years used: 25 how long ago did patient quit smokin, 0.5ppd second hand exposure: Yes alcohol intake: current details: 2-3 months of 1 bottle wine/day. substance use type: marijuana ROS ROS Narrative Admission Review of Systems: CONSTITUTIONAL: No weight loss, + fever, chills, weakness or fatigue. HEENT: Eyes: No visual loss, blurred vision, double vision or yellow sclerae. Ears, Nose, Throat: No hearing loss, sneezing, congestion, runny nose or sore throat. SKIN: No rash or itching, lesions, wounds. CARDIOVASCULAR: + Chest tightness but related with her dyspnea, wheezing. No specific chest pain, palpitations, edema, orthopnea, syncopal events. RESPIRATORY: + shortness of breath, cough without marked sputum, wheezing, No hemoptysis. GASTROINTESTINAL: + anorexia, nausea, vomiting, No diarrhea, abdominal pain, melena, BRBPR. GENITOURINARY: No dysuria, frequency, urgency or retention. NEUROLOGICAL: + Tremors, tactile disturbances, mild agitation no headache, dizziness, syncope, paralysis, ataxia, numbness or tingling in the extremities, focal weakness, change in bowel or bladder control, seizure. MUSCULOSKELETAL: + muscle, back pain, joint pain or stiffness. HEMATOLOGIC: + Easy bleeding or bruising. LYMPHATICS: No enlarged nodes. No history of splenectomy. PSYCHIATRIC: + history of depression or anxiety. ENDOCRINOLOGIC: No reports of sweating, cold or heat intolerance. No polyuria or polydipsia. ALLERGIES: + history of asthma, hives. Vital Signs Vital Signs Vital Signs: 07/16/22 17:28 Temperature 98.3 F Temperature Source Temporal Pulse Rate 102 H Respiratory Rate 18 Blood Pressure 165/106 H Blood Pressure Mean 125 Pulse Ox 100 Oxygen Delivery Method Nasal Cannula Oxygen Flow Rate (L/min) 3 Weight Weight: 226 lb 13.69 oz Body Mass Index (BMI) 35.5 Physical Exam Narrative Physical Examination: General: Awake, alert, oriented x 3 and cooperative, seated upright in the ED bed, fatigued, mildly ill-appearing Skin: Normal color, normal turgor, no icterus, no cyanosis except occasional abrasion, staged ecchymoses. HEENT: AT/NC, EOMI, PERRLA, dry MM, no carotid bruits or JVD noted; however, thickened neck makes evaluation. Lungs: Significantly tight, greater bases, appropriate respiratory rate, occasional end expiratory wheeze, no rales or rhonchi Heart: Mildly tachycardic with regular rhythm; no gallop, rub audible. Abdomen: Soft, obese, NTTP, ND, distant mildly hyperactive BS, unable to discern HSM well given habitus Extremities: No cyanosis, clubbing, or edema. Neurological: Patient awake, alert, oriented as noted, cognitive function intact; pupils equally reactive to light and accommodation, cranial nerves II- XII grossly normal, moving all 4 extremities, no focal deficits, strength moderately to severely global decrease given acute presentation, mildly tremulous, asking for additional Ativan for withdrawal symptoms. Psychiatric: Affect appears flat, fatigued, mildly restless, no acute evidence of depressive or anxiety feelings. Results Lab / Micro Data Result Diagrams: 07/16/22 18:20 07/16/22 18:20 Labs: Laboratory Results - last 24 hr 07/16/22 18:20: WBC 5.4, RBC 4.69, Hgb 14.2, Hct 45.4, MCV 96.8, MCH 30.3, MCHC 31.3 L, RDW Std Deviation 49.5 H, RDW Coeff of Jaun 14.0, Plt Count 211, MPV 10.5, Immature Gran % (Auto) 0.200, Neut % (Auto) 71.0 H, Lymph % (Auto) 19.8, [place] % (Auto) 8.6, Eos % (Auto) 0.2, Baso % (Auto) 0.2, Absolute Neuts (auto) 3.8, Absolute Lymphs (auto) 1.06, Nucleated RBC % 0 07/16/22 18:20: Sodium 135 L, Potassium 4.4, Chloride 101, Carbon Dioxide 23.0, Anion Gap 11, BUN 12, Creatinine 0.80, Estim Creat Clear Calc 72.72, Est GFR (MDRD) Af Amer 94, Est GFR (MDRD) Non-Af 78, BUN/Creatinine Ratio 15.0, Glucose 105, Calcium 9.2, Total Bilirubin 1.30 H, Direct Bilirubin 0.19, AST 46 H, ALT 30, Alkaline Phosphatase 120 H, Total Protein 7.2, Albumin 3.6, Globulin 3.6 07/16/22 18:20: Ethyl Alcohol 119.0 Micro: Microbiology 07/16/22 18:11 Nasal Secretion SARS-CoV-2 & FLU Antigen (Rapid) - Final Radiology Impression Chest X-Ray 07/16/22 18:06 IMPRESSION: Normal x-ray examination of the chest. Electronically Signed: Bao White MD at 18:50 EST Reading Location ID and State: [address] [place] [address] , Service support , Assessment & Plan Assessment/Plan (1) Alcohol withdrawal: (2) COPD exacerbation: PLAN: Plan The patient is a 61 y/o F w/ PMHx: Chronic dementia likely alcohol component related with no behavioral disturbance history, HTN, HLD, Hx VTE (DVT), CO PD/Asthma with chronic hypoxic respiratory failure, Chronic anemia, Chronic thrombocytopenia, Anxiety and Depression, EtOH abuse with associated Chronic Liver disease w/ Chronic Bilirubin/LFT elevations, GENNARO on BIPAP q HS, Former tobacco use who presents to the [facility] ED on 07/16/22 with history of previously achieving sobriety starting in 2020 however she started to drink again over the last 2 to 3 months with approximately 1 bottle of wine daily and has recently been attempting to wean herself off of alcohol over the last 48 hours with sips occasionally with worsening withdrawal symptoms however she is began to have extreme tremors, tactile disturbances, agitation with nausea and emesis with a lso concurrently noted increased cough above her baseline over the last several days with concern for chills as well as subjective fever at home with a home COVID test noted to be positive on day of presentation prompt eventual ED evaluation. #1. Acute EtOH Withdrawal: Will admit to medical surgical floor, routine labs obtained in the ED upon presentation with CBC not marked appearing, CMP with T. bili 1.30, AST/ALT 46/30, alk phos 120, ethyl alcohol level 119, given interest in sobriety, will initiate and continue on protocol with taper course of Phenobarbital, scheduled gabapentin for seizure prophylaxis, as needed Catapres, Bentyl, Vistaril, IV fluids, IV antiemetics, Tylenol as needed for pain. Will consult Case management for assistance for transition to next level of rehabilitation care. Mag, phos pending. Maintain on CIWA protocol concurrently. #2. Acute on chronic COPD/Asthma exacerbation w/ Chronic Hypoxic Respiratory Failure (3L NC): CXR w/ chronic changes, will maintain on home oxygen supplementation, continue ATC duonebs, PRN albuterol, IV methylprednisolone, HOB, IS parameters, will request procalcitonin as well as sputum culture and full respiratory viral panel and if any concern for bacterial etiology will add antibiotic therapy at that time. Rapid COVID antigen negative however patient reported having a positive test at home therefore to be cautious we will obtain a COVID PCR. #3. Chronic anemia, thrombocytopenia: Likely secondary to alcohol abuse history admission hemoglobin 12.6, platelet 115, prior baseline hemoglobin 10-11 primarily, prior baseline platelets 102-146, stable, trend #4. Chronic dementia likely alcohol component related with no behavioral disturbance history: Complicates presentation, will continue patient home Namenda, thiamine and folic acid. #5. Chronic bilirubin, LFT elevation: Admission CMP w/ T. bili 1.30, D bili 0.1 9, AST/ALT 46/30, alk phos 120, prior noted labs w/ admit 12/29/21 with T bili 1.70, T bili 0.56, AST/ALT 25/21, alk phos 198, will continue treatment as noted, encourage follow-up outpatient. #6. History of VTE: Noted prior history, not currently on anticoagulant therapy. #7. Hypertension: Per most recent list does not appear to be on regimen, in the interim we will have IV as needed hydralazine and add oral regimen once list clarified #8. Hyperlipidemia: We will continue patient on statin therapy. #9. Former Tobacco Abuse: Encouraged continued tobacco cessation. #10. Obesity: Weight loss and lifestyle changes encouraged. #11. GERD: We will continue patient on PPI. #12. Anxiety and depression: We will continue patient home fluoxetine, benztropine, trazodone. #13. GENNARO: BiPAP nightly. #14. DVT prophylaxis: Given significant medical history to be cautious we will maintain on Lovenox. #15. CODE status: Patient's healthcare power of litigation attorney associate is specifically her ex- and she does have a living will in place. She however request that none of her family be updated about her current presentation for alcohol withdrawal treatment. Discussed CODE status at length including difference between FULL code, DNR-CCA and DNR-CC status. Following discussions about the differences in these status, requested Full Code status. Advanced Care Planning Face to Face Time: 16 minutes. Admission Evaluation Time spent evaluating chart, patient history, patient ekaterina luation, care planning and discussion with specialists: 76 minutes. Charges/Coding Visit Charges Inpatient E&M: 91305 Init Hosp L3 Procedures Hospitalists Procedures: 84300 Advncd Care Plan 30 Min
[2022-07-16 19:44] LABS: Red Blood Cells-Urine 0-5 SEEN /hpf (0-5); Squamous Epithelial Cells - UA 0-5 SEEN /hpf (5-10)
[2022-07-16 19:48] VITALS: BP 156/92; PULSE 105; RESP 18; TEMP 36.7; O2SAT 95
[2022-07-16 19:55] LABS: Amphetamine Urine VISTA NEGATIVE (<1000 ng/mL); Barbiturate Urine VISTA NEGATIVE (< 200 ng/mL); Benzodiazepine Urine VISTA NEGATIVE (< 200 ng/mL); Cocaine Urine VISTA NEGATIVE (< 300 ng/mL); Ecstacy Urine VISTA NEGATIVE (< 500 ng/mL); Methadone Urine VISTA NEGATIVE (< 300 ng/mL); PCP Urine VISTA NEGATIVE (< 25 ng/mL); THC Urine VISTA POSITIVE (< 50 ng/mL); Vista UDS pH Range 5
[2022-07-16] MEDS: Acetaminophen 500 MG Tablet 1000 MG PO (20:08)
[2022-07-16 20:31] LABS: Magnesium 2.3 mg/dL (1.6-2.6); Phosphorus 2.2 mg/dL (2.5-4.9)
[2022-07-16 20:43] VITALS: BP 142/89; PULSE 102; RESP 18; TEMP 36.9; O2SAT 97
[2022-07-16 20:47] VITALS: BMI 33.3
[2022-07-16 21:36] VITALS: RESP 20; O2SAT 98
[2022-07-16] MEDS: Lactated Ringers 1,000 ML 125 ML IV (22:11)
[2022-07-16] MEDS: Phenobarbital 32.4 MG Tablet PO (22:15)
[2022-07-16] MEDS: Memantine Hydrochloride 10 MG Tablet PO (22:15)
[2022-07-16] MEDS: traZODone 100 MG Tablet PO (22:16)
[2022-07-16] MEDS: Potassium Chloride Oral Tablet 10 MEQ 20 MEQ PO (22:16)
[2022-07-16] MEDS: Atorvastatin Calcium 80 MG Tablet PO (22:16)
[2022-07-16 22:26] VITALS: PULSE 101; RESP 18
[2022-07-16 22:42] VITALS: BP 148/86; PULSE 106; RESP 16; TEMP 37.1; O2SAT 97
[2022-07-17] VITALS (12 sets, daily range): BP systolic 128–159; BP diastolic 78–111; PULSE 72–110; RESP 14–20; TEMP 36.4–37.4; O2SAT 94–98
[2022-07-17] MEDS: Phenobarbital 32.4 MG Tablet PO ×6 (01:14→21:21)
[2022-07-17] MEDS: Ondansetron 8 MG Tablet PO ×2 (02:53→15:17)
[2022-07-17] MEDS: LORazepam 1 MG Tablet 2 MG PO ×3 (02:53→15:18)
[2022-07-17] MEDS: Acetaminophen 325 MG Tablet 650 MG PO ×2 (05:25→15:18)
[2022-07-17 06:27] LABS: Absolute Lymphocyte Count 0.39 X10^3/uL (0.83-4.51); Absolute Neutrophil Count 2.4 X10^3/uL (2.0-7.7); Eosinophil# 0.01 X10^3/uL; Eosinophils% 0.3 % (0-5); Hematocrit 42.9 % (37-47); Lymphocyte # 0.39 X10^3/ul (0.83-4.51); Lymphocyte % 13.4 % (19-41); Mean Corp Hgb Conc 30.3 g/dL (32-36); Mean Corpuscular Hgb 30.1 pg (27.0-32.0); Mean Corpuscular Volume 99.3 fL (81-99); Mean Platelet Vol. 9.9 fl (6.2-12.0); Monocyte# 0.11 X10^3/uL; Monocyte% 3.8 % (0-10); NRBC Flagged by Analyzer 0 % (0-5); Neutrophil % 82.2 % (47-70); POSITIVE DIFFERENTIAL YES; Platelet Count 142 K/mm3 (150-450); RBC Distribution Width CV 13.8 % (11.6-14.6); RBC Distribution Width SD 50.8 fl (35.1-43.9); Red Blood Count 4.32 M/mm3 (4.2-5.4); White Blood Count 2.9 K/mm3 (4.4-11.0)
[2022-07-17 06:53] LABS: AST(SGOT) 24 U/L (15-37); Alanine Aminotransfer ALT/SGPT 24 U/L (13-56); Albumin, Serum 3.1 g/dL (3.2-5.0); Alkaline Phosphatase 103 U/L (45-117); Anion Gap 7 (5-15); BUN 15 mg/dL (7-18); BUN/Creat Ratio 20.4 RATIO (10-20); Calcium,Total 9.2 mg/dL (8.5-10.1); Chloride 101 mmol/L (98-107); Creatinine, Serum 0.74 mg/dL (0.55-1.02); EST Glomerular Filtration Rate 85 mL/min (>60); Est Glom Filt Rate - Afr Amer 103 mL/min (>60); Estimated Creatinine Clearance 81.55 ml/min; Glucose 119 mg/dL (74-106); Potassium 4.7 mmol/L (3.5-5.1); Protein, Total 6.1 g/dL (6.4-8.2); Sodium Level 137 mmol/L (136-145)
[2022-07-17 06:58] LABS: Differential Indicated SCAN CRITERIA MET
[2022-07-17] MEDS: Ipratropium/Albuterol Sulfate 3 ML AMPUL.NEB INHALATION ×3 (07:24→19:42)
[2022-07-17 07:31] LABS: Platelet Estimate SLT DEC (ADEQ)
--- NOTE | 2022-07-17 07:36 | PCM.PN.HOSP ---
Reason for Visit Reason for Visit: Diagnoses Alcohol use, unspecified with withdrawal, unspecified (07/16/22) Chronic obstructive pulmonary disease with (acute) exacerbation (07/16/22) Subjective Subjective No issues overnight, doing well. CIWA score 14 Objective Data Objective Data Vital Signs: Vital Signs Temp Pulse Resp BP Pulse Ox O2 Del Method O2 Flow Rate 98.1 F 107 H 16 156/111 H 96 Room Air 2 07/17/22 05:13 07/17/22 05:13 07/17/22 05:13 07/17/22 05:13 07/17/22 05:13 07/17/22 05:13 07/17/22 02:50 Oxygen Flow Rate (L/min) 2 Oxygen Delivery Method Room Air Weight: 219 lb 5.759 oz Body Mass Index (BMI) 33.3 Intake & Output: Intake and Output for Last 24 Hours 07/16/22 07/17/22 07/18/22 03:59 03:59 03:59 Intake Total 1200 / 1200 Balance 1200 / 1200 Lab / Micro Data Result Diagrams: 07/17/22 05:40 07/17/22 05:40 Labs: Laboratory Results - last 24 hr 07/16/22 18:20: WBC 5.4, RBC 4.69, Hgb 14.2, Hct 45.4, MCV 96.8, MCH 30.3, MCHC 31.3 L, RDW Std Deviation 49.5 H, RDW Coeff of Jaun 14.0, Plt Count 211, MPV 10.5, Immature Gran % (Auto) 0.200, Neut % (Auto) 71.0 H, Lymph % (Auto) 19.8, [place] % (Auto) 8.6, Eos % (Auto) 0.2, Baso % (Auto) 0.2, Absolute Neuts (auto) 3.8, Absolute Lymphs (auto) 1.06, Nucleated RBC % 0 07/16/22 18:20: Sodium 135 L, Potassium 4.4, Chloride 101, Carbon Dioxide 23.0, Anion Gap 11, BUN 12, Creatinine 0.80, Estim Creat Clear Calc 72.72, Est GFR (MDRD) Af Amer 94, Est GFR (MDRD) Non-Af 78, BUN/Creatinine Ratio 15.0, Glucose 105, Calcium 9.2, Total Bilirubin 1.30 H, Direct Bilirubin 0.19, AST 46 H, ALT 30, Alkaline Phosphatase 120 H, Total Protein 7.2, Albumin 3.6, Globulin 3.6 07/16/22 18:20: Ethyl Alcohol 119.0 07/16/22 18:20: Phosphorus 2.2 L, Magnesium 2.3 07/16/22 19:15: Urine Opiates Screen NEGATIVE, Urine Methadone Screen NEGATIVE, Ur Barbiturates Screen NEGATIVE, Ur Phencyclidine Scrn NEGATIVE, Ur Amphetamines Screen NEGATIVE, MDMA (Ecstasy) Screen NEGATIVE, U Benzodiazepines Scrn NEGATIVE, Urine Cocaine Screen NEGATIVE, U Cannabinoids Screen POSITIVE H, Ur Drug Screen Comment 07/16/22 19:15: Urine Color Yellow, Urine Clarity Clear, Urine pH 6.5, Ur Specific [place] 1.015, Urine Protein 500 H, Urine Glucose (UA) Normal, Urine Ketones Negative, Urine Occult Blood 50 H, Urine Nitrite Negative, Urine Bilirubin Negative, Urine Urobilinogen 1 H, Ur Leukocyte Esterase 25 H, Urine RBC 0-5 SEEN, Urine WBC 5-10 SEEN, Ur Squamous Epith Cells 0-5 SEEN, Urine Bacteria 0 SEEN, Urine Mucus 0 SEEN 07/16/22 19:15: COVID-19 (MARY) Not Detected 07/17/22 05:40: WBC 2.9 L, RBC 4.32, Hgb 13.0, Hct 42.9, MCV 99.3 H, MCH 30.1, MCHC 30.3 L, RDW Std Deviation 50.8 H, RDW Coeff of Jaun 13.8, Plt Count 142 L, MPV 9.9, Immature Gran % (Auto) 0.300, Neut % (Auto) 82.2 H, Lymph % (Auto) 13.4 L, [place] % (Auto) 3.8, Eos % (Auto) 0.3, Baso % (Auto) 0.0, Absolute Neuts (auto) 2.4, Absolute Lymphs (auto) 0.39 L, Nucleated RBC % 0, Diff Path Review October pritesh, Platelet Estimate SLT 07/17/22 05:40: Sodium 137, Potassium 4.7, Chloride 101, Carbon Dioxide 29.0, Anion Gap 7, BUN 15, Creatinine 0.74, Estim Creat Clear Calc 81.55, Est GFR (MDRD) Af Amer 103, Est GFR (MDRD) Non-Af 85, BUN/Creatinine Ratio 20.4 H, Glucose 119 H, Calcium 9.2, Total Bilirubin 1.20 H, AST 24, ALT 24, Alkaline Phosphatase 103, Total Protein 6.1 L, Albumin 3.1 L, Globulin 3.0, Albumin/Globulin Ratio 1.0 Micro: Microbiology 07/16/22 19:15 Urine, Clean Catch Streptococcus pneumoniae Antigen (M - Final 07/16/22 19:15 Urine, Clean Catch Legionella Antigen - Final 07/16/22 18:11 Nasal Secretion SARS-CoV-2 & FLU Antigen (Rapid) - Final Radiography Diagnostic Testing: Radiology Impression Chest X-Ray 07/16/22 18:06 IMPRESSION: Normal x-ray examination of the chest. Electronically Signed: Bao White MD at 18:50 EST , Physical Exam Narrative General: Alert, Oriented x3, Cooperative, No apparent distress HEENT: Atraumatic, PERRLA, EOMI, Normocephalic Oral: Moist Mucosa Neck: Supple, No JVD Lungs: Diminished, Normal air movement, No rhonchi, No wheeze, No rales Cardiovascular: Tachycardic, Regular Rhythm, Normal S1, Normal S2, No murmurs Abdomen: Soft, Non Tender, Non-Distended, No Hepato-splenomegaly Extremities: No edema, Capillary Refill Less than 3 Seconds Skin: No rashes, No breakdown Musculoskeletal: No Tenderness to Palpation of Joints or Extremities Neurological: Cranial nerves II-XII grossly intact, Motor Exam 5/5 strength throughout, Sensory exam intact to light touch and pain Psych/Mental Status: Anxious, flat Assessment & Plan Assessment/Plan (1) Alcohol withdrawal: (2) COPD exacerbation: PLAN: Plan 1. Acute alcohol withdrawal/LFT elevation/chronic anemia and thrombocytopenia/anxiety/depression ? Will continue with the alcohol withdrawal protocol ? We will have her meet with 180 to set up follow-up ? LFTs are chronically elevated due to alcohol use ? We will continue her home medications 2. Chronic hypoxic respiratory failure on 3 L nasal cannula at home/GENNARO ? We will continue her on her 3 L nasal cannula ? We will continue to monitor and provide her with oxygen as necessary ? Admitting physician felt that she might be having an exacerbation however she is on her baseline 2 to 3 L nasal cannula, she does not demonstrate any increased work of breathing and she is not tachypneic so I doubt she is in an extensive exacerbation of her restrictive lung disease/COPD. We will transition her to prednisone in the morning ? Can continue with her nightly BiPAP 3. HTN/HLD ? Blood pressures are stable ? We will continue her home blood pressure medications 4. GERD ? Stable ? Continue with PPI DVT: Lindanox Charges/Coding Visit Charges Inpatient E&M: 29865 Subs Hosp L2
[2022-07-17] MEDS: Memantine Hydrochloride 10 MG Tablet PO ×2 (09:48→21:20)
[2022-07-17] MEDS: FLU VACC QS2022-23(6MOS UP)/PF 60 MCG/0.5 ML SYRINGE IM (09:48)
[2022-07-17] MEDS: cloNIDine HCl 0.1 MG Tablet PO ×2 (09:48→21:21)
[2022-07-17] MEDS: Pantoprazole Sodium 40 MG Tablet PO (09:48)
[2022-07-17] MEDS: Enoxaparin 40 MG/0.4 ML Syringe SC (09:48)
[2022-07-17] MEDS: Carvedilol 3.125 MG TABLET PO ×2 (09:48→21:21)
[2022-07-17] MEDS: Thiamine Hydrochloride 100 MG Tablet PO (09:49)
[2022-07-17] MEDS: Magnesium Chloride 64 MG Delay Rel.Tablet 128 MG PO (09:49)
[2022-07-17] MEDS: FLUoxetine 20 MG Capsule PO (09:49)
[2022-07-17] MEDS: Folic Acid 1 MG Tablet PO (09:50)
[2022-07-17] MEDS: Potassium Chloride Oral Tablet 10 MEQ 20 MEQ PO ×2 (10:05→21:24)
[2022-07-17 13:04] LABS: Pathologist Review Reviewed
[2022-07-17] MEDS: hydrOXYzine PAM 25 MG Capsule 50 MG PO (14:03)
--- NOTE | 2022-07-17 15:13 | CHAPLAIN ---
Type of Pastoral Visit _x__ Initial Visit ___ Follow-up Visit ___ On-call Visit ___ General Patient Visit ___ Spiritual Assessment ___ Family Conference ___ Bereavement ___ Rapid Response ___ Code Blue ___ Other (describe below) Pastoral Care Referral From _x__ Patient ___ Family ___ Nurse ___ Physician ___ Snout Puller ___ Chocolate Production Machine Operator ___ Other (describe below) Sacrament/Intervention ___ Active listening ___ Anointing ___ Gnosticist ___ Bereavement ___ Communion ___ Ellen exploration ___ ___ Life review _x__ Prayer ___ Reconciliation ___ Sacrament of Sick _x__ Supportive presence ___ Wedding ___ Other (describe below) Pastoral Comments patient was resting in bed and stated that sleep would be her goal right now; pt stated you can say a prayer for me if you want; pt said no other needs at the moment but this director of dance offered ongoing support which pt said would be fine to check back on later
[2022-07-17] MEDS: Atorvastatin Calcium 80 MG Tablet PO (21:21)
[2022-07-17] MEDS: traZODone 100 MG Tablet PO (21:21)
[2022-07-18] VITALS (9 sets, daily range): BP systolic 126–148; BP diastolic 70–85; PULSE 80–95; RESP 16–20; TEMP 36.5–36.8; O2SAT 95–98
[2022-07-18] MEDS: Phenobarbital 32.4 MG Tablet PO ×6 (01:35→20:59)
[2022-07-18] MEDS: hydrOXYzine PAM 25 MG Capsule 50 MG PO ×2 (05:35→20:59)
[2022-07-18] MEDS: LORazepam 1 MG Tablet 2 MG PO ×2 (06:55→16:30)
[2022-07-18] MEDS: Ipratropium/Albuterol Sulfate 3 ML AMPUL.NEB INHALATION ×4 (07:37→19:03)
[2022-07-18] MEDS: Carvedilol 3.125 MG TABLET PO ×2 (10:19→20:59)
[2022-07-18] MEDS: Tolterodine Tartrate 2 MG CAP.SA PO (10:19)
[2022-07-18] MEDS: predniSONE 20 MG Tablet 40 MG PO (10:19)
[2022-07-18] MEDS: FLUoxetine 20 MG Capsule PO (10:19)
[2022-07-18] MEDS: Enoxaparin 40 MG/0.4 ML Syringe SC (10:19)
[2022-07-18] MEDS: Magnesium Chloride 64 MG Delay Rel.Tablet 128 MG PO (10:19)
[2022-07-18] MEDS: Potassium Chloride Oral Tablet 10 MEQ 20 MEQ PO ×2 (10:19→20:59)
[2022-07-18] MEDS: cloNIDine HCl 0.1 MG Tablet PO ×2 (10:19→20:59)
[2022-07-18] MEDS: Thiamine Hydrochloride 100 MG Tablet PO (10:19)
[2022-07-18] MEDS: Pantoprazole Sodium 40 MG Tablet PO (10:20)
[2022-07-18] MEDS: Folic Acid 1 MG Tablet PO (10:20)
[2022-07-18] MEDS: Memantine Hydrochloride 10 MG Tablet PO ×2 (10:20→20:59)
--- NOTE | 2022-07-18 11:04 | PCM.PN.HOSP ---
Reason for Visit Reason for Visit: Diagnoses Alcohol use, unspecified with withdrawal, unspecified (07/16/22) Chronic obstructive pulmonary disease with (acute) exacerbation (07/16/22) Subjective Subjective Doing well, no issues overnight. Seems that her breathing is a bit better but her withdrawal symptoms have worsened a little bit Objective Data Objective Data Vital Signs: Vital Signs Temp Pulse Resp BP Pulse Ox O2 Del Method O2 Flow Rate 98.1 F 94 16 148/85 H 96 Nasal Cannula 2 07/18/22 10:18 07/18/22 10:18 07/18/22 10:18 07/18/22 10:18 07/18/22 10:18 07/18/22 10:18 07/18/22 10:18 Oxygen Flow Rate (L/min) 2 Oxygen Delivery Method Nasal Cannula Weight: 219 lb 5.759 oz Body Mass Index (BMI) 33.3 Intake & Output: Intake and Output for Last 24 Hours 07/17/22 07/18/22 07/19/22 03:59 03:59 03:59 Intake Total 2250 / 2250 Balance 2250 / 2250 Lab / Micro Data Result Diagrams: 07/17/22 05:40 07/17/22 05:40 Labs: Laboratory Results - last 24 hr 07/17/22 05:40: Diff Path Review Reviewed Micro: Microbiology 07/17/22 16:20 Sputum, Expectorated/Coughed Gram Stain - Final 07/16/22 19:15 Mucosa - Nasopharyngeal Respiratory Panel (PCR) - Final 07/16/22 19:15 Urine, Clean Catch Streptococcus pneumoniae Antigen (M - Final 07/16/22 19:15 Urine, Clean Catch Legionella Antigen - Final 07/16/22 18:11 Nasal Secretion SARS-CoV-2 & FLU Antigen (Rapid) - Final Physical Exam Narrative General: Alert, Oriented x3, Cooperative, No apparent distress HEENT: Atraumatic, PERRLA, EOMI, Normocephalic Oral: Moist Mucosa Neck: Supple, No JVD Lungs: Diminished, Normal air movement, No rhonchi, No wheeze, No rales Cardiovascular: Tachycardic, Regular Rhythm, Normal S1, Normal S2, No murmurs Abdomen: Soft, Non Tender, Non-Distended, No Hepato-splenomegaly Extremities: No edema, Capillary Refill Less than 3 Seconds Skin: No rashes, No breakdown Musculoskeletal: No Tenderness to Palpation of Joints or Extremities Neurological: Cranial nerves II-XII grossly intact, Motor Exam 5/5 strength throughout, Sensory exam intact to light touch and pain Psych/Mental Status: Anxious, flat Assessment & Plan Assessment/Plan (1) Alcohol withdrawal: (2) COPD exacerbation: PLAN: Plan 1. Acute alcohol withdrawal/LFT elevation/chronic anemia and thrombocytopenia/anxiety/depression ? Will continue with the alcohol withdrawal protocol ? We will have her meet with 180 to set up follow-up ? LFTs are chronically elevated due to alcohol use ? We will continue her home medications 2. Chronic hypoxic respiratory failure on 3 L nasal cannula at home/GENNARO ? We will continue her on her 3 L nasal cannula ? We will continue to monitor and provide her with oxygen as necessary ? Admitting physician felt that she might be having an exacerbation however she is on her baseline 2 to 3 L nasal cannula, she does not demonstrate any increased work of breathing and she is not tachypneic so I doubt she is in an extensive exacerbation of her restrictive lung disease/COPD. We will transition her to prednisone 10-day ? Can continue with her nightly BiPAP 3. HTN/HLD ? Blood pressures are stable ? We will continue her home blood pressure medications 4. GERD ? Stable ? Continue with PPI DVT: Lovenox Charges/Coding Visit Charges Inpatient E&M: 41565 Subs Hosp L2
[2022-07-18] MEDS: Gabapentin 300 MG Capsule PO (15:00)
[2022-07-18] MEDS: Acetaminophen 325 MG Tablet 650 MG PO (20:58)
[2022-07-18] MEDS: traZODone 100 MG Tablet PO (20:59)
[2022-07-18] MEDS: Atorvastatin Calcium 80 MG Tablet PO (20:59)
[2022-07-19] VITALS (8 sets, daily range): BP systolic 110–129; BP diastolic 66–81; PULSE 71–89; RESP 16–18; TEMP 36.4–36.8; O2SAT 94–99
[2022-07-19] MEDS: Gabapentin 300 MG Capsule PO ×2 (01:40→20:45)
[2022-07-19] MEDS: Phenobarbital 32.4 MG Tablet PO ×5 (01:40→23:57)
[2022-07-19] MEDS: hydrOXYzine PAM 25 MG Capsule 50 MG PO ×3 (05:37→20:45)
[2022-07-19] MEDS: Ipratropium/Albuterol Sulfate 3 ML AMPUL.NEB INHALATION ×3 (07:17→15:20)
[2022-07-19] MEDS: predniSONE 20 MG Tablet 40 MG PO (07:51)
[2022-07-19] MEDS: Thiamine Hydrochloride 100 MG Tablet PO (07:51)
[2022-07-19] MEDS: Enoxaparin 40 MG/0.4 ML Syringe SC (07:51)
[2022-07-19] MEDS: Folic Acid 1 MG Tablet PO (07:51)
[2022-07-19] MEDS: Magnesium Chloride 64 MG Delay Rel.Tablet 128 MG PO (07:52)
[2022-07-19] MEDS: Tolterodine Tartrate 2 MG CAP.SA PO (07:52)
[2022-07-19] MEDS: Pantoprazole Sodium 40 MG Tablet PO (07:52)
[2022-07-19] MEDS: cloNIDine HCl 0.1 MG Tablet PO ×2 (07:52→20:46)
[2022-07-19] MEDS: FLUoxetine 20 MG Capsule PO (07:52)
[2022-07-19] MEDS: Carvedilol 3.125 MG TABLET PO ×2 (07:52→20:46)
[2022-07-19] MEDS: Memantine Hydrochloride 10 MG Tablet PO ×2 (07:52→20:46)
[2022-07-19] MEDS: Acetaminophen 325 MG Tablet 650 MG PO ×2 (08:01→20:45)
[2022-07-19] MEDS: Benztropine Mesylate 0.5 MG TABLET PO (09:26)
--- NOTE | 2022-07-19 09:29 | PCM.PN.HOSP ---
Reason for Visit Reason for Visit: Diagnoses Alcohol use, unspecified with withdrawal, unspecified (07/16/22) Chronic obstructive pulmonary disease with (acute) exacerbation (07/16/22) Subjective Subjective Still feels that withdrawal symptoms even though her CIWA score is a 1 Objective Data Objective Data Vital Signs: Vital Signs Temp Pulse Resp BP Pulse Ox O2 Del Method O2 Flow Rate 97.6 F L 71 18 111/81 H 98 Nasal Cannula 2 07/19/22 08:25 07/19/22 08:25 07/19/22 08:25 07/19/22 08:25 07/19/22 08:25 07/19/22 08:25 07/19/22 08:25 Oxygen Flow Rate (L/min) 2 Oxygen Delivery Method Nasal Cannula Weight: 219 lb 5.759 oz Body Mass Index (BMI) 33.3 Intake & Output: Intake and Output for Last 24 Hours 07/18/22 07/19/22 07/20/22 03:59 03:59 03:59 Intake Total 2250 / 2250 1250 / 1250 250 / 250 Balance 2250 / 2250 1250 / 1250 250 / 250 Lab / Micro Data Result Diagrams: 07/17/22 05:40 07/17/22 05:40 Micro: Microbiology 07/17/22 16:20 Sputum, Expectorated/Coughed Gram Stain - Final 07/17/22 16:20 Sputum, Expectorated/Coughed Respiratory Culture - Final Mixed normal respiratory orin. No Streptococcus pneumoniae, beta-hemolytic Streptococcus or Staphylococcus aureus isolated. 07/16/22 19:15 Mucosa - Nasopharyngeal Respiratory Panel (PCR) - Final 07/16/22 19:15 Urine, Clean Catch Streptococcus pneumoniae Antigen (M - Final 07/16/22 19:15 Urine, Clean Catch Legionella Antigen - Final 07/16/22 18:11 Nasal Secretion SARS-CoV-2 & FLU Antigen (Rapid) - Final Physical Exam Narrative General: Alert, Oriented x3, Cooperative, No apparent distress HEENT: Atraumatic, PERRLA, EOMI, Normocephalic Oral: Moist Mucosa Neck: Supple, No JVD Lungs: Diminished, Normal air movement, No rhonchi, No wheeze, No rales Cardiovascular: Tachycardic, Regular Rhythm, Normal S1, Normal S2, No murmurs Abdomen: Soft, Non Tender, Non-Distended, No Hepato-splenomegaly Extremities: No edema, Capillary Refill Less than 3 Seconds Skin: No rashes, No breakdown Musculoskeletal: No Tenderness to Palpation of Joints or Extremities Neurological: Cranial nerves II-XII grossly intact, Motor Exam 5/5 strength throughout, Sensory exam intact to light touch and pain Psych/Mental Status: flat Assessment & Plan Assessment/Plan (1) Alcohol withdrawal: (2) COPD exacerbation: PLAN: Plan 1. Acute alcohol withdrawal/LFT elevation/chronic anemia and thrombocytopenia/anxiety/depression ? Will continue with the alcohol withdrawal protocol ? We will have her meet with 180 to set up follow-up ? LFTs are chronically elevated due to alcohol use ? We will continue her home medications 2. Chronic hypoxic respiratory failure on 3 L nasal cannula at home/GENNARO ? We will continue her on her 3 L nasal cannula ? We will continue to monitor and provide her with oxygen as necessary ? Admitting physician felt that she might be having an exacerbation however she is on her baseline 2 to 3 L nasal cannula, she does not demonstrate any increased work of breathing and she is not tachypneic so I doubt she is in an extensive exacerbation of her restrictive lung disease/COPD. We will transition her to prednisone 10-day ? Can continue with her nightly BiPAP 3. HTN/HLD ? Blood pressures are stable ? We will continue her home blood pressure medications 4. GERD ? Stable ? Continue with PPI DVT: Lovenox Charges/Coding Visit Charges Inpatient E&M: 74353 Subs Hosp L2
[2022-07-19] MEDS: LORazepam 1 MG Tablet 2 MG PO ×2 (13:01→22:37)
[2022-07-19] MEDS: Potassium Chloride Oral Tablet 10 MEQ 20 MEQ PO (20:45)
[2022-07-19] MEDS: Atorvastatin Calcium 80 MG Tablet PO (20:45)
[2022-07-19] MEDS: traZODone 100 MG Tablet PO (20:46)
[2022-07-20] MEDS: Phenobarbital 32.4 MG Tablet PO ×2 (05:30→11:25)
[2022-07-20] MEDS: hydrOXYzine PAM 25 MG Capsule 50 MG PO ×2 (05:30→11:25)
[2022-07-20 05:33] VITALS: BP 108/57; PULSE 74; RESP 18; TEMP 36.6; O2SAT 98
[2022-07-20 07:09] VITALS: PULSE 79; RESP 16; O2SAT 96
[2022-07-20] MEDS: Ipratropium/Albuterol Sulfate 3 ML AMPUL.NEB INHALATION (07:09)
[2022-07-20] MEDS: Pantoprazole Sodium 40 MG Tablet PO (07:53)
[2022-07-20] MEDS: Enoxaparin 40 MG/0.4 ML Syringe SC (07:53)
[2022-07-20] MEDS: Tolterodine Tartrate 2 MG CAP.SA PO (07:53)
[2022-07-20] MEDS: predniSONE 20 MG Tablet 40 MG PO (07:53)
[2022-07-20] MEDS: Memantine Hydrochloride 10 MG Tablet PO (07:54)
[2022-07-20] MEDS: Carvedilol 3.125 MG TABLET PO (07:54)
[2022-07-20] MEDS: FLUoxetine 20 MG Capsule PO (07:54)
[2022-07-20] MEDS: Thiamine Hydrochloride 100 MG Tablet PO (07:54)
[2022-07-20] MEDS: Potassium Chloride Oral Tablet 10 MEQ 20 MEQ PO (07:54)
[2022-07-20] MEDS: Magnesium Chloride 64 MG Delay Rel.Tablet 128 MG PO (07:54)
[2022-07-20] MEDS: Folic Acid 1 MG Tablet PO (07:54)
[2022-07-20] MEDS: Gabapentin 300 MG Capsule PO (07:57)
[2022-07-20] MEDS: cloNIDine HCl 0.1 MG Tablet PO (07:57)
[2022-07-20 08:20] VITALS: BP 112/80; PULSE 73; RESP 18; TEMP 36.3; O2SAT 100
--- NOTE | 2022-07-20 08:50 | DCINST_ITS ---
Discharge Instructions Diet Discharge Diet: Low fat / Low cholesterol Activity Discharge Activity: Return to Normal Activity Dressing / Incision Call your doctor if you observe: Fever of 101 or Higher, Shortness of breath, Dizziness, Fainting spells, Swelling in the ankles, Chest pain and Increased palpitations (irregular heartbeat) Follow Up Care Test Results: Test results from this visit will be discussed in further detail at your follow- up appointment, if applicable. Discharge Plan Admission Admit Date/Time: 07/16/22 19:22 Attending Provider: Thong Sultana Primary Care Provider: Karl Moran Consulting Providers: Mckenzie Austin Discharge Orders/Prescriptions Prescriptions: New prednisone 20 mg Tablet 40 mg PO BREAKFAST 5 Days Qty: 10 0RF carvedilol 3.125 mg Tablet 3.125 mg PO BID Qty: 60 0RF Continued cyclobenzaprine 10 mg tablet 10 mg PO TID PRN (Reason: muscle spasm) Qty: 30 0RF pantoprazole 40 MG tablet 40 mg PO DAILY fluoxetine 20 mg Capsule 40 mg PO DAILY benztropine 0.5 mg tablet 0.5 mg PO BID PRN PRN (Reason: tremors) magnesium oxide 400 mg magnesium Tablet 400 mg PO DAILY trazodone 100 mg Tablet 100 mg PO QHS thiamine HCl (vitamin B1) [Vitamin B-1] 50 mg Tablet 50 mg PO DAILY rosuvastatin 40 mg Tablet 40 mg PO QHS folic acid 1 mg tablet 1 mg PO DAILY@0800 rivastigmine tartrate 1.5 mg capsule 1.5 mg PO BID clonidine HCl 0.1 mg tablet 0.1 mg PO BID potassium chloride 10 mEq tablet extended release 10 meq PO BID memantine [Namenda] 10 mg tablet 10 mg PO BID prochlorperazine maleate [Compazine] 5 mg Tablet 5 mg PO Q6H PRN PRN (Reason: Nausea) hydroxyzine pamoate [Vistaril] 50 mg Capsule 50 mg PO Q8H PRN PRN (Reason: Anxiety) melatonin 10 mg Tablet 10 mg PO QHS PRN (Reason: Sleep) oxybutynin chloride 10 mg tablet extended release 24hr 10 mg PO DAILY Referrals / Follow Up: Karl Moran MD [Primary Care Provider] - Within 1 Week Disposition Disposition (needs filled in before D/C Order can be placed): Home, Self Care
--- NOTE | 2022-07-20 08:56 | DS.PCM_ITS ---
Providers Date of Admission: 07/16/22 Primary Care Physician: Dr. Karl Moran MD Reason For Visit: ETOH WITHDRAWAL Diagnosis Discharge Diagnosis (1) Alcohol withdrawal: Status: Acute Code(s): F10.939 - Alcohol use, unspecified with withdrawal, unspecified (2) COPD exacerbation: Status: Chronic Code(s): J44.1 - Chronic obstructive pulmonary disease with (acute) exacerbation Medications at Discharge Home Medications pantoprazole 40 mg tablet,delayed release 40 mg PO DAILY acid reflux 12/09/18 fluoxetine 20 mg capsule 40 mg PO DAILY anxiety 01/14/21 benztropine 0.5 mg tablet 0.5 mg PO BID PRN PRN tremors 03/08/21 magnesium oxide 400 mg PO DAILY supplement 06/08/21 trazodone 100 mg tablet 100 mg PO QHS sleep 06/10/21 rosuvastatin 40 mg tablet 40 mg PO QHS cholesterol 07/19/21 thiamine HCl (vitamin B1) 50 mg tablet (Vitamin B-1) 50 mg PO DAILY supplement 07/19/21 folic acid 1 mg tablet 1 mg PO DAILY@0800 supplement 12/29/21 cyclobenzaprine 10 mg tablet 10 mg PO TID PRN muscle spasm #30 tabs 04/17/22 clonidine HCl 0.1 mg tablet 0.1 mg PO BID anxiety 07/16/22 hydroxyzine pamoate 50 mg capsule (Vistaril) 50 mg PO Q8H PRN PRN Anxiety 07/16/22 melatonin 10 mg tablet 10 mg PO QHS PRN Sleep 07/16/22 memantine 10 mg tablet (Namenda) 10 mg PO BID Alzheimer's 07/16/22 potassium chloride 10 mEq tablet,extended release 10 meq PO BID supplement 07/16/22 prochlorperazine maleate 5 mg tablet (Compazine) 5 mg PO Q6H PRN PRN Nausea 07/16/22 rivastigmine tartrate 1.5 mg capsule 1.5 mg PO BID Alzheimer's 07/16/22 oxybutynin chloride 10 mg tablet,extended release 24 hr 10 mg PO DAILY bladder 07/18/22 carvedilol 3.125 mg tablet 3.125 mg PO BID #60 tabs 07/20/22 prednisone 20 mg tablet 40 mg PO BREAKFAST 5 days #10 tabs 07/20/22 Hospital Course Operations None Procedures None Summary of Care Provided Minutes Spent on Discharge: 40 Hospital Course: Per HPI: The patient is a 61 y/o F w/ PMHx: Chronic dementia likely alcohol component related with no behavioral disturbance history, HTN, HLD, Hx VTE (DVT), COPD/Asthma with chronic hypoxic respiratory failure, Chronic anemia, Chronic thrombocytopenia, Anxiety and Depression, EtOH abuse with associated Chronic Liver disease w/ Chronic Bilirubin/LFT elevations, GENNARO on BIPAP q HS, Former tobacco use who presents to the [facility] ED on 07/16/22 with history of previo usly achieving sobriety starting in 2020 however she started to drink again over the last 2 to 3 months with at least 1 bottle of wine daily, recently been attempting to wean herself off of alcohol over the last 48 hours with sips occasionally with worsening withdrawal symptoms however she is began to have extreme tremors, tactile disturbances, agitation with nausea and emesis with also concurrently noted increased cough above her baseline over the last several days with concern for chills as well as subjective fever at home with a home COVID test noted to be positive on day of presentation prompt eventual ED evaluation. Work-up in the ED included T98.3, heart rate 102, BP 165/106, respiratory rate 18, 100% on 3 L nasal cannula, CBC with WC 5.4, hemoglobin 14.2, platelet 211 without marked shift, CMP with sodium 135, T. bili 1.30, AST/LT 46/30, alk phos 1 2, ethyl alcohol level 119, chest x-ray with no acute cardiopulmonary finding, rapid COVID and influenza antigen negative.? Patient on evaluation does request that none of her family be notified that she has been admitted.? In the ED patient ministered Zofran 4 mg IV x1 as well as Ativan 1 mg IV times a total of 2 thus far. Hospital Course: 1. Acute alcohol withdrawal/LFT elevation/chronic anemia and thrombocytope lalan/anxiety/depression?61-year-old female presents to the hospital once again requesting alcohol detox. She has gone through this several times. She met with 180 but did not want to go into inpatient rehab must follow-up with her counselor as well as her psychiatrist. She has completed most of her phenobarb taper and is feeling well today. I discussed with her the plan for discharge and she expressed understanding of the risks and benefits of going home and would like to go home today. 2. Chronic hypoxic respiratory failure on 3 L nasal cannula at home/GENNARO?there was some concern for possible COPD exacerbation however she has been doing well and I weaned her down from her Solu-Medrol to just oral prednisone. We will plan for her to complete 5 more days of prednisone which will complete essentially a 10-day course. 3. HTN/HLD?it does not appear that she is on any medications at home when she came in she was both hypertensive and tachycardic so I transitioned her to Coreg which she tolerated very well. We will plan to discharge her on Coreg and have her follow-up with her PCP in 3 to 5 days Physical Exam Narrative General: Alert, Oriented x3, Cooperative, No apparent distress HEENT: Atraumatic, PERRLA, EOMI, Normocephalic Oral: Moist Mucosa Neck: Supple, No JVD Lungs: Diminished, Normal air movement, No rhonchi, No wheeze, No rales Cardiovascular: Tachycardic, Regular Rhythm, Normal S1, Normal S2, No murmurs Abdomen: Soft, Non Tender, Non-Distended, No Hepato-splenomegaly Extremities: No edema, Capillary Refill Less than 3 Seconds Skin: No rashes, No breakdown Musculoskeletal: No Tenderness to Palpation of Joints or Extremities Neurological: Cranial nerves II-XII grossly intact, Motor Exam 5/5 strength throughout, Sensory exam intact to light touch and pain Psych/Mental Status: flat Weight / BMI Weight Weight: 219 lb 5.759 oz Body Mass Index (BMI) 33.3 ABG / Lab / Microbiology Data Result Diagrams: 07/17/22 05:40 07/17/22 05:40 Microbiology: Microbiology 07/17/22 16:20 Sputum, Expectorated/Coughed Gram Stain - Final 07/17/22 16:20 Sputum, Expectorated/Coughed Respiratory Culture - Final Mixed normal respiratory orin. No Streptococcus pneumoniae, beta-hemolytic Streptococcus or Staphylococcus aureus isolated. 07/16/22 19:15 Mucosa - Nasopharyngeal Respiratory Panel (PCR) - Final 07/16/22 19:15 Urine, Clean Catch Streptococcus pneumoniae Antigen (M - Final 07/16/22 19:15 Urine, Clean Catch Legionella Antigen - Final 07/16/22 18:11 Nasal Secretion SARS-CoV-2 & FLU Antigen (Rapid) - Final D/C Instructions Discharge Diet: Low fat / Low cholesterol Call your doctor if you observe: Fever of 101 or Higher, Shortness of breath, Dizziness, Fainting spells, Swelling in the ankles, Chest pain and Increased palpitations (irregular heartbeat) Meaningful Use Info Meaningful Use Diagnoses (Choose all that apply): None applicable Discharge Plan Admission Admit Date/Time: 07/16/22 19:22 Attending Provider: Thong Sultana Primary Care Provider: Karl Moran Consulting Providers: Mckenzie Austin Discharge Orders/Prescriptions Prescriptions: New prednisone 20 mg Tablet 40 mg PO BREAKFAST 5 Days Qty: 10 0RF carvedilol 3.125 mg Tablet 3.125 mg PO BID Qty: 60 0RF Continued cyclobenzaprine 10 mg tablet 10 mg PO TID PRN (Reason: muscle spasm) Qty: 30 0RF pantoprazole 40 MG tablet 40 mg PO DAILY fluoxetine 20 mg Capsule 40 mg PO DAILY benztropine 0.5 mg tablet 0.5 mg PO BID PRN PRN (Reason: tremors) magnesium oxide 400 mg magnesium Tablet 400 mg PO DAILY trazodone 100 mg Tablet 100 mg PO QHS thiamine HCl (vitamin B1) [Vitamin B-1] 50 mg Tablet 50 mg PO DAILY rosuvastatin 40 mg Tablet 40 mg PO QHS folic acid 1 mg tablet 1 mg PO DAILY@0800 rivastigmine tartrate 1.5 mg capsule 1.5 mg PO BID clonidine HCl 0.1 mg tablet 0.1 mg PO BID potassium chloride 10 mEq tablet extended release 10 meq PO BID memantine [Namenda] 10 mg tablet 10 mg PO BID prochlorperazine maleate [Compazine] 5 mg Tablet 5 mg PO Q6H PRN PRN (Reason: Nausea) hydroxyzine pamoate [Vistaril] 50 mg Capsule 50 mg PO Q8H PRN PRN (Reason: Anxiety) melatonin 10 mg Tablet 10 mg PO QHS PRN (Reason: Sleep) oxybutynin chloride 10 mg tablet extended release 24hr 10 mg PO DAILY Referrals / Follow Up: Karl Moran MD [Primary Care Provider] - Within 1 Week Disposition Disposition (needs filled in before D/C Order can be placed): Home, Self Care Charges/Coding Visit Charges Inpatient E&M: 78052 Disch Hosp >30min
--- NOTE | 2022-07-20 09:35 | PHA.DC.MR ---
Pharmacy Service has performed discharge medication reconciliation for this patient. The patient's discharge medication list was reviewed for discrepancies and discrepancies were resolved. Home Medications pantoprazole 40 mg tablet,delayed release 40 mg PO DAILY acid reflux 12/09/18 fluoxetine 20 mg capsule 40 mg PO DAILY anxiety 01/14/21 benztropine 0.5 mg tablet 0.5 mg PO BID PRN PRN tremors 03/08/21 magnesium oxide 400 mg PO DAILY supplement 06/08/21 trazodone 100 mg tablet 100 mg PO QHS sleep 06/10/21 rosuvastatin 40 mg tablet 40 mg PO QHS cholesterol 07/19/21 thiamine HCl (vitamin B1) 50 mg tablet (Vitamin B-1) 50 mg PO DAILY supplement 07/19/21 folic acid 1 mg tablet 1 mg PO DAILY@0800 supplement 12/29/21 cyclobenzaprine 10 mg tablet 10 mg PO TID PRN muscle spasm #30 tabs 04/17/22 clonidine HCl 0.1 mg tablet 0.1 mg PO BID anxiety 07/16/22 hydroxyzine pamoate 50 mg capsule (Vistaril) 50 mg PO Q8H PRN PRN Anxiety 07/16/22 melatonin 10 mg tablet 10 mg PO QHS PRN Sleep 07/16/22 memantine 10 mg tablet (Namenda) 10 mg PO BID Alzheimer's 07/16/22 potassium chloride 10 mEq tablet,extended release 10 meq PO BID supplement 07/16/22 prochlorperazine maleate 5 mg tablet (Compazine) 5 mg PO Q6H PRN PRN Nausea 07/16/22 rivastigmine tartrate 1.5 mg capsule 1.5 mg PO BID Alzheimer's 07/16/22 oxybutynin chloride 10 mg tablet,extended release 24 hr 10 mg PO DAILY bladder 07/18/22 carvedilol 3.125 mg tablet 3.125 mg PO BID #60 tabs 07/20/22 prednisone 20 mg tablet 40 mg PO BREAKFAST 5 days #10 tabs 07/20/22
[2022-07-20] MEDS: Ondansetron 8 MG Tablet PO (11:53)
== END 2022-07-20 13:11 | disposition home or self-care (01) | DRG 897 ==
LOC: ED 19:33 → MS3 23:37
PROVIDERS: Nurse Practitioner; Admitting Provider Family Medicine; Emergency Provider Emergency Medicine; PCP Family Medicine; Visit Provider Family Medicine
DX: F10.239 Alcohol dependence with withdrawal, unspecified (principal); J96.11 Chronic respiratory failure with hypoxia; J44.1 Chronic obstructive pulmonary disease with (acute) exacerbation; D69.6 Thrombocytopenia, unspecified; F03.90 Unspecified dementia, unspecified severity, without behavioral disturbance, psychotic disturbance, mood disturbance, and anxiety; J44.9 Chronic obstructive pulmonary disease, unspecified; F12.90 Cannabis use, unspecified, uncomplicated; N18.1 Chronic kidney disease, stage 1; E78.5 Hyperlipidemia, unspecified; K21.9 Gastro-esophageal reflux disease without esophagitis; G47.33 Obstructive sleep apnea (adult) (pediatric); F41.9 Anxiety disorder, unspecified; I12.9 Hypertensive chronic kidney disease with stage 1 through stage 4 chronic kidney disease, or unspecified chronic kidney disease; Z80.0 Family history of malignant neoplasm of digestive organs; Z87.891 Personal history of nicotine dependence; Z20.822 Contact with and (suspected) exposure to COVID-19; Z79.52 Long term (current) use of systemic steroids; B34.9 Viral infection, unspecified; F32.A Depression, unspecified; E66.9 Obesity, unspecified; Z68.33 Body mass index [BMI] 33.0-33.9, adult; Y90.5 Blood alcohol level of 100-119 mg/100 ml
CPT/HCPCS: 36415; 71045; 80048; 80053; 80076; 80307; 81001; 82077; 83735; 84100; 85025; 87070; 87205; 87428; 87449; 87633; 87635; 94640; 94668; 94762; 99252; 99285; G0008; J7120; 90686; A4216; G0463; J2405; U0003; U0005

== ENCOUNTER 2023-01-04 11:26 | Emergency (ER) | payer MEDICARE, MEDICAID, SELFPAY ==
[2023-01-04 11:27] VITALS: PULSE 107; RESP 16; TEMP 37.2; O2SAT 96; BMI 34.9
--- NOTE | 2023-01-04 11:58 | EX.ED.DYSGE1 ---
HPI History of Present Illness Chief Complaint: Abd Pain Detail of Chief Complaint: Viral-like symptoms predominantly GI Informant: patient Onset/Context/Timing Onset: Weeks Context: Sudden Onset Timing: Continuous and Waxes and wanes Quality: Bilateral lower abdominal pain Location: Right and left quadrant Current Severity: Mild Maximum Severity: Moderate Worsened by: Irwin of liquids or solids, walking Relieved by: Nothing Associated Symptoms Associated Symptoms: Documented temperature to 101.4 ?F Sunday, nausea, vomiting and diarrhea, Narrative Narrative: Patient is 62-year-old woman with multiple medical problems which include hypertension, diabetes, obstructive sleep apnea, chronic kidney disease who presents because of nausea, vomit diarrhea. She has vomited between several times a day to 10 times a day's. She has had several bowel movements that are loose watery. Over the past 24 hours she has had 4 loose stools. She has not noted blood or mucus. She denies history of Crohn's disease or inflammatory bowel disorder. She reports decreased urine output. She denies dysuria or urgency or hematuria. She denies double vision, blurred vision loss of vision. Does Report headache. She denies cardiac respiratory symptoms she is status post cholecystectomy, appendectomy, hysterectomy with bilateral salpingo-oophorectomy. She does not have history of diverticulosis or diverticulitis. Prior similar symptoms: No Recent Illness/Hospitalization: No PFSH PFSH Medical History Abdominal pain Abnormal liver CT Admitted to alcohol detoxification center Alcohol abuse Alcohol withdrawal Anemia Anxiety Arthritis Asthma BiPAP (biphasic positive airway pressure) dependence Bronchiectasis Bronchitis Chronic renal failure Chronic renal insufficiency, stage I Closed fracture of fibula, proximal, left Colitis Colitis with rectal bleeding Contusion of left hip Contusion of left shoulder Contusion of rib on right side Contusion of scalp COPD (chronic obstructive pulmonary disease) Dementia Depression DVT (deep venous thrombosis) Endocarditis Essential (primary) hypertension Former smoker Frequent falls Gastritis Gastroesophageal reflux disease History of diarrhea History of umbilical hernia HLD (hyperlipidemia) Hypertension Idiopathic right ventricular dilation Kidney disease Leukopenia Medical marijuana use Migraine Morbid obesity On home oxygen therapy GENNARO (obstructive sleep apnea) Osteoarthritis Pancytopenia Pneumonia Pyuria Respiratory failure with hypoxia Respiratory insufficiency Respiratory tract infection due to COVID-19 virus Restrictive lung disease Right bundle branch block (RBBB) Right ventricular systolic dysfunction Sepsis Sleep apnea Substance abuse Thrombocytopenia Home Medications pantoprazole 40 mg tablet,delayed release 40 mg PO DAILY acid reflux 12/09/18 [History Last Taken 07/15/22 08:00] fluoxetine 20 mg capsule 40 mg PO DAILY anxiety 01/14/21 [History Last Taken 07/15/22 08:00] magnesium oxide 400 mg PO DAILY supplement 06/08/21 [History Last Taken 07/15/22 08:00] trazodone 100 mg tablet 100 mg PO QHS sleep 06/10/21 [History Last Taken 07/15/22 20:00] rosuvastatin 40 mg tablet 40 mg PO QHS cholesterol 07/19/21 [History Last Taken 07/15/22 20:00] thiamine HCl (vitamin B1) 50 mg tablet (Vitamin B-1) 50 mg PO DAILY supplement 07/19/21 [History Last Taken 07/15/22 08:00] folic acid 1 mg tablet 1 mg PO DAILY@0800 supplement 12/29/21 [History Last Taken 07/15/22 08:00] clonidine HCl 0.1 mg tablet 0.1 mg PO BID anxiety 07/16/22 [History Last Taken 07/15/22 20:00] hydroxyzine pamoate 50 mg capsule (Vistaril) 50 mg PO Q8H PRN PRN Anxiety 07/16/22 [History Last Taken Unknown] melatonin 10 mg tablet 10 mg PO QHS PRN Sleep 07/16/22 [History Last Taken Unknown] memantine 10 mg tablet (Namenda) 10 mg PO BID Alzheimer's 07/16/22 [History Last Taken 07/15/22 20:00] potassium chloride 10 mEq tablet,extended release 10 meq PO BID supplement 07/16/22 [History Last Taken 07/15/22 20:00] rivastigmine tartrate 1.5 mg capsule 1.5 mg PO BID Alzheimer's 07/16/22 [History Last Taken 07/15/22 20:00] oxybutynin chloride 10 mg tablet,extended release 24 hr 10 mg PO DAILY bladder 07/18/22 [History Last Taken Unknown] carvedilol 3.125 mg tablet 3.125 mg PO BID #60 tabs 07/20/22 [Rx Last Taken Unknown] dicyclomine 10 mg capsule 20 mg (2 x 10 mg) PO TIDAC #20 CAPSULES 01/04/23 [Rx Last Taken Unknown] ondansetron 4 mg disintegrating tablet 4 mg PO Q8H PRN PRN Nausea #10 tabs 01/04/23 [Rx Last Taken Unknown] Allergy/AdvReac Type Severity Reaction Status Date / Time house dust Allergy ITCHY EYES Verified 01/04/23 11:29 Penicillins Allergy Hives Verified 01/04/23 11:29 Seasonal Allergies: Uncoded Allergy ITCHY EYES Verified 01/04/23 11:29 Family History Father Colon cancer Mother Cancer pancreatic Surgical History History of appendectomy History of cholecystectomy History of hysterectomy History of tubal ligation Social History household members: none Smoking Status: Former smoker Tobacco: How many years used: 25 how long ago did patient quit smokin, 0.5ppd second hand exposure: Yes alcohol intake: current details: 2-3 months of 1 bottle wine/day. substance use type: marijuana ROS ROS ED Constitutional Constitutional ED: Reports chills, fever(s) and sweats; Denies weight loss Eyes Eyes: Denies blurry vision, change in vision or diplopia ENT ENT ED: Reports other Details: Endorses nasal congestion. ; Denies ear pain, rhinorrhea or sore throat Cardiovascular Cardiovascular: Denies chest pain, orthopnea, palpitations, paroxysmal nocturnal dyspnea or racing heartbeat Respiratory/Chest Respiratory/Chest: Denies cough, dyspnea, dyspnea on exertion, orthopnea or paroxysmal nocturnal dyspnea Gastrointestinal Gastrointestinal: Reports abdominal pain, diarrhea, nausea and vomiting; Denies constipation or melena Genitourinary Genitourinary ED: Denies dysuria, hematuria or urinary frequency Musculoskeletal Musculoskeletal: Denies arthralgias, back pain, myalgias or neck pain Integumentary Denies abscess, Abrasions or rash Neurologic Neurologic: Reports weakness; Denies headache(s) or paresthesias Psychiatric Psychiatric: Reports depression Endocrine Endocrinology: Denies cold intolerance or heat intolerance Hematologic/Lymphatic Hematologic/Lymphatic: Reports systems reviewed and no addt'l complaints, except as documented EXAM Physical Exam Const Vital Signs: 01/04/23 11:27 Temperature 98.9 F Temperature Source Temporal Pulse Rate 107 H Respiratory Rate 16 Pulse Ox 96 Oxygen Delivery Method Room Air Positive well nourished and well developed Constitutional Narrative: Began to cry during the history portion of the H&P. Patient states she felt sick for too long. General Appearance ED: well developed and NAD; Negative for pallor HEENT Reports dry mucous membranes HEENT Narrative: Head is atraumatic normocephalic. Ears are normal. Nares are patent. Posterior is normal. Mouth ED: Yes dry mucous membranes Mouth: dry mucous membranes Eyes PERRL and EOMs intact bilaterally General Eye ED: Negative for pale conjunctiva or scleral icterus Neck no lymphadenopathy, supple and no JVD Chest Wall inspection of chest normal and palpation of chest normal Resp normal respiratory effort and clear to auscultation bilaterally Cardio regular rate, regular rhythm, S1 normal heart sound, S2 normal heart sound and no murmurs GI normal to inspection, nondistended, normoactive bowel sounds and non-distended; Negative for non-tender, hepatosplenomegaly or no masses Palpation: soft and tender LUQ; Negative for splenomegaly or rebound tenderness present Back/Spine no CVA tenderness Thoracic Spine / Upper Back: Negative for thoracic spinal tenderness Lumbar Spine / Lower Back: Negative for lumbar spinal tenderness Extremity normal to inspection General Extremety ED: Negative for edema or tenderness General Extremity: Negative for edema Neuro oriented x3, CN's II-XII intact bilaterally and no sensory deficits noted Sensorium / Orientation: alert Psych mental status grossly normal Skin no rashes or lesions noted, no wounds and skin turgor normal General Skin Exam: Negative for jaundice or pallor MDM MDM MDM Narrative Medical decision making narrative: Differential diagnoses include viral illness with vomiting diarrhea. In light of her multiple medical problems and the fact that she is clinically dehydrated 1 L of normal saline was ordered. BMP was obtained to assess glucose as well as electrolytes and renal function since she does have history of chronic renal insufficiency. Patient received Zofran for her nausea and Bentyl for her abdominal pain. History & Record Review Additional record(s) reviewed:: Prior ED visit and Prior labs Lab Data Attestation: I reviewed the patient's lab results. Lab results narrative: Patient is neutropenic. Prior records indicates she is always neutropenic. Creatinine is slightly up from baseline. Last creatinine was 0.74. Today's is 1.17 with a GFR of 50. Labs: Laboratory Results - last 24 hr 01/04/23 11:55 WBC 4.1 L RBC 4.38 Hgb 12.2 Hct 40.5 MCV 92.5 MCH 27.9 MCHC 30.1 L RDW Std Deviation 42.9 RDW Coeff of Jaun 12.7 Plt Count 121 L MPV 9.2 Immature Gran % (Auto) 0.500 Neut % (Auto) 69.3 Lymph % (Auto) 19.0 [place] % (Auto) 9.0 Eos % (Auto) 2.0 Baso % (Auto) 0.2 Absolute Neuts (auto) 2.8 Absolute Lymphs (auto) 0.78 L Nucleated RBC % 0 Sodium 142 Potassium 3.5 Chloride 106 Carbon Dioxide 32.0 Anion Gap 4 L BUN 18 Creatinine 1.17 H Estim Creat Clear Calc 50.94 Est GFR (MDRD) Af Amer 61 Est GFR (MDRD) Non-Af 50 L BUN/Creatinine Ratio 15.4 Glucose 110 H Calcium 9.4 Treatment and Re-Evaluation :: Patient was informed of her laboratory results. Plan is to discharge after liter of fluid. She feels much better after Zofran and Bentyl. Discharge Plan Triage Chief Complaint: Abd Pain ED Provider: Junior Salter Dx/Rx/DC Orders Clinical Impression: Nausea, vomiting, and diarrhea, Acute renal insufficiency, Dehydration, moderate, Abdominal pain, acute, bilateral lower quadrant Instructions: ED Renal Insufficiency, ED Vomiting and Diarrhea ... Prescriptions: New ondansetron [ondansetron] 4 mg tablet,disintegrating 4 mg PO Q8H PRN PRN (Reason: Nausea) Qty: 10 0RF dicyclomine 10 mg capsule 20 mg PO TIDAC Qty: 20 0RF No Action pantoprazole 40 MG tablet 40 mg PO DAILY fluoxetine 20 mg Capsule 40 mg PO DAILY magnesium oxide 400 mg magnesium Tablet 400 mg PO DAILY trazodone 100 mg Tablet 100 mg PO QHS thiamine HCl (vitamin B1) [Vitamin B-1] 50 mg Tablet 50 mg PO DAILY rosuvastatin 40 mg Tablet 40 mg PO QHS folic acid 1 mg tablet 1 mg PO DAILY@0800 rivastigmine tartrate 1.5 mg capsule 1.5 mg PO BID clonidine HCl 0.1 mg tablet 0.1 mg PO BID potassium chloride 10 mEq tablet extended release 10 meq PO BID memantine [Namenda] 10 mg tablet 10 mg PO BID hydroxyzine pamoate [Vistaril] 50 mg Capsule 50 mg PO Q8H PRN PRN (Reason: Anxiety) melatonin 10 mg Tablet 10 mg PO QHS PRN (Reason: Sleep) oxybutynin chloride 10 mg tablet extended release 24hr 10 mg PO DAILY carvedilol 3.125 mg Tablet 3.125 mg PO BID Qty: 60 0RF Primary Care Provider: Karl Moran Referrals: Karl Moran MD [Primary Care Provider] - 1-2 Days if not improving Activity Restrictions/Additional Instructions: Take Imodium for diarrhea. Disposition Disposition: Home, Self Care
[2023-01-04] MEDS: 0.9% Normal Saline 1,000 ML 1000 ML IV (12:02)
[2023-01-04] MEDS: Dicyclomine 10 MG Capsule 20 MG PO (12:02)
[2023-01-04] MEDS: Ondansetron 4 MG/2 ML Vial IV (12:02)
[2023-01-04 12:03] LABS: Absolute Lymphocyte Count 0.78 X10^3/uL (0.83-4.51); Absolute Neutrophil Count 2.8 X10^3/uL (2.0-7.7); Basophil# 0.01 X10^3/uL; Basophil% 0.2 % (0-1); Eosinophil# 0.08 X10^3/uL; Hematocrit 40.5 % (37-47); Hemoglobin 12.2 g/dL (12.0-15.0); Lymphocyte # 0.78 X10^3/ul (0.83-4.51); Mean Corp Hgb Conc 30.1 g/dL (32-36); Mean Corpuscular Hgb 27.9 pg (27.0-32.0); Mean Corpuscular Volume 92.5 fL (81-99); Mean Platelet Vol. 9.2 fl (6.2-12.0); Monocyte# 0.37 X10^3/uL; NRBC Flagged by Analyzer 0 % (0-5); Neutrophil # 2.84 X10^3/uL (2.7-7.7); Neutrophil % 69.3 % (47-70); Platelet Count 121 K/mm3 (150-450); RBC Distribution Width CV 12.7 % (11.6-14.6); RBC Distribution Width SD 42.9 fl (35.1-43.9); Red Blood Count 4.38 M/mm3 (4.2-5.4); White Blood Count 4.1 K/mm3 (4.4-11.0)
[2023-01-04 12:15] LABS: Anion Gap 4 (5-15); BUN 18 mg/dL (7-18); BUN/Creat Ratio 15.4 RATIO (10-20); Calcium,Total 9.4 mg/dL (8.5-10.1); Chloride 106 mmol/L (98-107); Creatinine, Serum 1.17 mg/dL (0.55-1.02); EST Glomerular Filtration Rate 50 mL/min (>60); Est Glom Filt Rate - Afr Amer 61 mL/min (>60); Estimated Creatinine Clearance 50.94 ml/min; Glucose 110 mg/dL (74-106); Potassium 3.5 mmol/L (3.5-5.1); Sodium Level 142 mmol/L (136-145)
--- NOTE | 2023-01-04 12:40 | ED.RN ---
was placed on 3L NC on arrival room. pt reports she runs errands without O2
== END 2023-01-04 12:45 | disposition home or self-care (01) ==
PROVIDERS: Emergency Provider Emergency Medicine; PCP Family Medicine; Visit Provider Emergency Medicine
DX: R10.31 Right lower quadrant pain (principal); J44.9 Chronic obstructive pulmonary disease, unspecified; E11.22 Type 2 diabetes mellitus with diabetic chronic kidney disease; R11.2 Nausea with vomiting, unspecified; G47.33 Obstructive sleep apnea (adult) (pediatric); I12.9 Hypertensive chronic kidney disease with stage 1 through stage 4 chronic kidney disease, or unspecified chronic kidney disease; R19.7 Diarrhea, unspecified; Z87.891 Personal history of nicotine dependence; E78.5 Hyperlipidemia, unspecified; E86.0 Dehydration; N18.9 Chronic kidney disease, unspecified; K21.9 Gastro-esophageal reflux disease without esophagitis; F41.9 Anxiety disorder, unspecified; Z99.81 Dependence on supplemental oxygen; Z90.49 Acquired absence of other specified parts of digestive tract; Z90.710 Acquired absence of both cervix and uterus; R10.32 Left lower quadrant pain
CPT/HCPCS: 80048; 85025; 96361; 96374; 99284; J7030; A4216; J2405

== ENCOUNTER 2023-02-27 10:49 | Outpatient (RCR) | payer MEDICARE, MEDICAID, SELFPAY ==
--- NOTE | 2023-02-27 11:52 | HP.PTEVAL ---
Patient's Visit Information Visit Information Visit Information: ALFIE HOGAN is a 62 year old F referred to Physical Therapy by Dr. Karl Moran MD with a diagnosis of Ataxia-. Date of Evaluation: 02/27/23 Physical Therapist: Deanne Foote DPT Visit Plan Frequency: 2x /Week Duration: 4 Weeks Plan: Focus on LE and core strength/stabilization- proprioception- functional mobility Pt wears O2-3L HEP Given IE: Move More! Kitchen Sink Ex with UE A- Subjective Subjective: Patient reports that she has no stamina and she can't walk-its been going on a long time- bilateral hip replacement and a fusion in her back. She has a lot of pain in the right leg with aches in the knee and groin- She has some swelling in the lower leg- which is there all the time- after one of her hip replacements she felt like maybe a tendon or something felt like it gave way. The last time she fell was a month ago- before that she was falling more regularly. She has a cane and a walker but she does not use them- she has talked about using them due to her balance being off but she has not. She lost 95 lbs and has gained back 37 back- she is not very active. She sits on her phone and watches TV for the majority of the day. She does her own bathing and driving. She shares cooking responsibilities but she does her own grocery shopping and can walk through the grocery story with a cart to hold onto. 3 stairs to enter and does struggle to get in/out- there is a handrail- that she can use- and she uses it. She usually falls backwards when she does fall. Does feel like her legs buckle under her. Pain level today is a 5/10 in the back of her leg in her ankle and in her knee and the groin. Agg: walking. Eases: laying down. Best: 2/10. Dull and achy and sharp and shooting. No N/T in the toes. Sleep: disturbed- side sleeper. Goals: want to be able to go for a walk. She feels that pain stops her from being able to do things she wants to do (fair). Low back pain is not new- she has had the back pain- fusion around 2009- has had back pain since then- Dr. Valencia. Pain stays in her back- radiates down her legs left to the knee right all the way down. The back pain is there only when she moves. If she is sitting still she has no pain in her back. Does wear O2 did not bring today- was not charged- 3L normally 24/7-normally runs abour 94% O2 PMHx/Meds: see scanned in chart from . Objective Objective: Posture: FH, RS- can correct but does not maintain Gait: wide base of support- good james- Stairs: non recip with 2 HR HR/TR: able with UE A SLS: weight shift only no SLS Palpation: tender along posterior right knee Strength: Ankle: 5/5, Knee: 4+/5, Hip: Left: 4-/5 throughout Right: Flexion: 3+/5, All other motions: 4-/5, Core: poor Flex: HS: severe, Gastroc: moderate Transfers: sit to stand: requires UE A *Did not push pt hard during eval due to no O2 today Balance/Special Test Scores Functional Gait Assessment Score: 12 % Disability: 60.0000 Lower Extremity Functional Score: 19 Goals Goal 1:: Patient will be I with HEP and progression Goal Time Frame: 4-6 Weeks Goal 2:: Patient will perform sit to stand without UE A Goal Time Frame: 4-6 Weeks Goal 3:: Patient will asc/desc 8 stairs recip with 1 HR Goal Time Frame: 4-6 Weeks Goal 4:: Patient will SLS for 5 sec without LOB Goal Time Frame: 4-6 Weeks Goal 5:: Patient will report 80% improvement Goal Time Frame: 4-6 Weeks Rehabilitation Potential Physical Therapy Diagnosis: Patient presents with hypomobility- she has decreased LE and core strength/stabilization, proprioception, flex and muscular endurance leading to poor posture and decreased ability to perform ADL's. Rehabilitation Potential: Good Anticipated Interventions Therapeutic Exercise to Include: Strength training, Endurance training, Balance training, Coordination, Agility training, Body mechanics, Postural training, Flexibilty training, Gait and locomotor training, In an aquatic setting and Dynamic Lumbar Stabilization For the Purpose of:: To improve muscle performance and motor function Text: Thank you for the opportunity to evaluate your patient. For Medicare and Medicare HMO plans, please review the plan of care and approve it. It will need to be FAXED BACK to us at [phone] for Medicare purposes. For Medicare only, by signing this I certify the plan of care. Please let me know if there are questions or concerns regarding this plan of care. Physician Signature: Date:
== END 2023-02-27 19:00 | disposition home or self-care (01) ==
LOC: PT 10:49
PROVIDERS: PCP Family Medicine; Visit Provider Family Medicine
DX: R27.0 Ataxia, unspecified (principal); R29.898 Other symptoms and signs involving the musculoskeletal system
CPT/HCPCS: 97110; 97162

== ENCOUNTER → 2023-03-15 | Outpatient (CLI) | payer MEDICARE, MEDICAID, SELFPAY ==
[2023-03-15 11:15] VITALS: PULSE 102; PULSE 110; PULSE 89; PULSE 94; PULSE 95; PULSE 97; PULSE 99; O2SAT 86; O2SAT 88; O2SAT 91; O2SAT 92; O2SAT 93; O2SAT 94; O2SAT 96
--- NOTE | 2023-03-15 11:41 | CPS ---
Pt was placed on room air. Sats 92% when we started to walk sats dropped to 87% at 1 min. Placed her back on her home oxygen pulse dose at 3L. Sats increased to 93% At 3 minutes i had to place her on continuos oxygen due to sats 88%. She then finished out the rest of the test on my tank on 3L and sats were above 93% for remainder of test.
--- NOTE | 2023-03-15 12:23 | PCM.PSN.6M ---
PSN 6 Minute Walk Test 6 Minute Walk Test 6 Minute Walk Test: 6 Minute Walk Test PSN:6-Minute Walk Test Start: 03/15/23 11:38 Freq: Status: Active Protocol: [id number].6MINW Document 03/15/23 11:15 EW (Rec: 03/15/23 11:43 EW Desktop) 6 Minute Walk Test Date Performed 03/15/23 Time Performed 11:15 Height 5 ft 8 in Weight: 237 lb Weight in Pounds 237.[address]: Sam Padron Assistive device used: None Pre-test Oxygen Delivery Method Room Air Pulse Ox 92 Pulse Rate (60-100) 89 Dyspnea Joshua Scale (0-10) 2 Exertion Joshua Scale (6-20) 10 1st minute Oxygen Delivery Method Room Air Pulse Ox 86 Pulse Rate (60-100) 110 H 2nd minute Oxygen Flow Rate (L/min) 3 Oxygen Delivery Method Nasal Cannula Pulse Ox 91 Pulse Rate (60-100) 97 3rd minute Oxygen Flow Rate (L/min) 3 Oxygen Delivery Method Nasal Cannula Pulse Ox 88 Pulse Rate (60-100) 99 4th minute Oxygen Flow Rate (L/min) 3 Oxygen Delivery Method Nasal Cannula Pulse Ox 94 Pulse Rate (60-100) 94 5th minute Oxygen Flow Rate (L/min) 3 Oxygen Delivery Method Nasal Cannula Pulse Ox 93 6th minute Oxygen Flow Rate (L/min) 3 Oxygen Delivery Method Nasal Cannula Pulse Ox 93 Pulse Rate (60-100) 102 H Reported Symptoms Increased Work of Breathing Post-test Oxygen Flow Rate (L/min) 3 Oxygen Delivery Method Nasal Cannula Pulse Ox 96 Pulse Rate (60-100) 95 Dyspnea Joshua Scale (0-10) 3 Exertion Joshua Scale (6-20) 11 Full Laps Walked 16 Partial Lap, Number of Tiles Walked 0 Total Distance Walked (ft) 944 03/15/23 11:41 Cardiopulmonary Services by Jina Austin Pt was placed on room air. Sats 92% when we started to walk sats dropped to 87% at 1 min. Placed her back on her home oxygen pulse dose at 3L. Sats increased to 93% At 3 minutes i had to place her on continuos oxygen due to sats 88%. She then finished out the rest of the test on my tank on 3L and sats were above 93% for remainder of test. Initialized on 03/15/23 11:41 - END OF NOTE Interpretation Interpretation: The patient ambulated 944 feet over the course of 6 minutes beginning on room air without assistive devices. Pretesting oxygen saturation was noted to be 92% on room air. With ambulation, the patient desaturated on several occasions, requiring the initiation of continuous flow supplemental oxygen at 3 L/min to maintain appropriate saturations. Recommendations Recommendations: 3 L/min continuous flow supplemental oxygen should be utilized with exertion.
== END | disposition home or self-care (01) ==
LOC: PSN 11:13
PROVIDERS: PCP Family Medicine; Referring Provider Internal Medicine Critical Care Medicine; Visit Provider Internal Medicine Critical Care Medicine
DX: J96.90 Respiratory failure, unspecified, unspecified whether with hypoxia or hypercapnia (principal)
CPT/HCPCS: 94618

== ENCOUNTER → 2023-03-20 | Outpatient (CLI) | payer MEDICARE, MEDICAID, SELFPAY ==
--- NOTE | 2023-03-21 07:58 | PFT ---
INTRODUCTION: The patient is a 62-year-old female who presents for pulmonary function studies secondary to a diagnosis of respiratory failure. Respiratory therapy reported good patient effort. Bronchodilators were used during testing. INTERPRETATION: Forced expiration spirometry demonstrates no evidence of a large airways obstructive ventilatory defect. There was no significant response to aerosolized bronchodilators. Spirograms are of good quality and plateau normally. Body plethysmography was performed and revealed a decreased TLC to 3.12 L, 56% of predicted, indicative of a severe restrictive ventilatory impairment. Diffusing capacity by single breath CO is reduced to 53% of predicted. IMPRESSION: Severe restrictive ventilatory impairment with symmetric reduction in diffusion capacity.
== END | disposition home or self-care (01) ==
LOC: PSN 09:24
PROVIDERS: PCP Family Medicine; Referring Provider Internal Medicine Critical Care Medicine; Visit Provider Internal Medicine Critical Care Medicine
DX: J96.90 Respiratory failure, unspecified, unspecified whether with hypoxia or hypercapnia (principal)
CPT/HCPCS: 94060; 94726; 94729

== ENCOUNTER → 2023-03-21 | Outpatient (CLI) | payer MEDICARE, MEDICAID, SELFPAY ==
[2023-03-21] MEDS: Zolpidem Tartrate 5 MG Tablet PO (20:30)
== END | disposition home or self-care (01) ==
LOC: SL 20:14
PROVIDERS: PCP Family Medicine; Referring Provider Internal Medicine Critical Care Medicine; Visit Provider Internal Medicine Critical Care Medicine
DX: G47.33 Obstructive sleep apnea (adult) (pediatric) (principal)
CPT/HCPCS: 95811

== ENCOUNTER → 2023-04-30 | Outpatient (CLI) | payer MEDICARE, MEDICAID, SELFPAY | END | disposition home or self-care (01) | LOC: SL 10:32 | PROVIDERS: PCP Family Medicine; Visit Provider Nurse Practitioner Acute Care | DX: G47.33 Obstructive sleep apnea (adult) (pediatric) (principal) ==

== ENCOUNTER → 2023-06-18 | Outpatient (CLI) | payer MEDICARE, MEDICAID, SELFPAY ==
[2023-06-18 15:15] LABS: Absolute Lymphocyte Count 0.73 X10^3/uL (0.83-4.51); Basophil# 0.04 X10^3/uL; Eosinophil# 0.05 X10^3/uL; Eosinophils% 1.2 % (0-5); Hematocrit 41.5 % (37-47); Hemoglobin 12.3 g/dL (12.0-15.0); Lymphocyte # 0.73 X10^3/ul (0.83-4.51); Lymphocyte % 17.4 % (19-41); Mean Corp Hgb Conc 29.6 g/dL (32-36); Mean Corpuscular Hgb 27.1 pg (27.0-32.0); Mean Corpuscular Volume 91.4 fL (81-99); Mean Platelet Vol. 10.7 fl (6.2-12.0); Monocyte# 0.33 X10^3/uL; Monocyte% 7.9 % (0-10); NRBC Flagged by Analyzer 0 % (0-5); Neutrophil # 3.04 X10^3/uL (2.7-7.7); Neutrophil % 72.3 % (47-70); Platelet Count 153 K/mm3 (150-450); RBC Distribution Width SD 47.1 fl (35.1-43.9); Red Blood Count 4.54 M/mm3 (4.2-5.4); White Blood Count 4.2 K/mm3 (4.4-11.0)
[2023-06-18 15:46] LABS: Vitamin D,25 Hydroxy 9.8 ng/mL
[2023-06-18 15:56] LABS: ALB/GLOB Ratio 1.6 RATIO (0.9-2.4); AST(SGOT) 21 U/L (15-37); Alanine Aminotransfer ALT/SGPT 40 U/L (13-56); Albumin, Serum 4.2 g/dL (3.2-5.0); Alkaline Phosphatase 154 U/L (45-117); Anion Gap 7 (5-15); BUN 19 mg/dL (7-18); BUN/Creat Ratio 18.3 RATIO (10-20); Calcium,Total 9.6 mg/dL (8.5-10.1); Chloride 106 mmol/L (98-107); Cholesterol 137 mg/dL (200); Creatinine, Serum 1.04 mg/dL (0.55-1.02); EST Glomerular Filtration Rate 57 mL/min (>60); Est Glom Filt Rate - Afr Amer 69 mL/min (>60); Globulin 2.6 g/dL (2.2-4.2); Glucose 89 mg/dL (74-106); High Density Lipoprotein 53 mg/dL; Potassium 5.1 mmol/L (3.5-5.1); Protein, Total 6.8 g/dL (6.4-8.2); Sodium Level 139 mmol/L (136-145); Thyroid Stim Hormone (TSH) 0.48 uIU/mL (0.358-3.74); Triglycerides 121 mg/dL; Very Low Density Lipoprotein 24 mg/dL (5-40)
== END | disposition home or self-care (01) ==
PROVIDERS: PCP Family Medicine; Referring Provider Family Medicine; Visit Provider Family Medicine
DX: R14.0 Abdominal distension (gaseous) (principal); I50.30 Unspecified diastolic (congestive) heart failure; N18.9 Chronic kidney disease, unspecified; M85.80 Other specified disorders of bone density and structure, unspecified site; R30.0 Dysuria; E78.5 Hyperlipidemia, unspecified
CPT/HCPCS: 36415; 80053; 80061; 82306; 84443; 85025

== ENCOUNTER 2023-07-12 09:54 | Emergency (ER) | payer MEDICARE, MEDICAID, SELFPAY ==
[2023-07-12 09:55] VITALS: BP 122/82; PULSE 110; RESP 14; TEMP 36.8; O2SAT 95; BMI 38.3
--- NOTE | 2023-07-12 11:20 | CT_ITS ---
INDICATION: pain, vomiting, concern for SBO EXAMINATION: CT ABDOMEN AND PELVIS WITHOUT CONTRAST - CT Abdomen And Pelvis W/O Contrast Injection TECHNIQUE: Helically acquired images were obtained of the abdomen and pelvis without oral or IV contrast. A radiation dose optimization technique was used for this scan. IV Contrast dosage and agent: None. Oral contrast: None. RADIATION DOSAGE (If Supplied By Facility): CTDIvol = ( 22.86 ) mGy, DLP = ( 1262.03 ) mGycm COMPARISON: Prior study dated: 12/22/2018 FINDINGS: LOWER CHEST: Bilateral lower lung scarring. No cardiomegaly or pericardial effusion. Coronary calcifications. LIVER: Homogeneous. No focal mass. GALLBLADDER AND BILIARY TREE: Absent gallbladder consistent with previous cholecystectomy. No intra- or extrahepatic biliary ductal dilation. PANCREAS: No focal cystic or solid mass. SPLEEN: Normal size without focal cystic or solid mass. ADRENAL GLANDS: No nodules. KIDNEYS AND URETERS: Normal renal size and position. No hydronephrosis. PERITONEUM: No ascites or free air. No other fluid collection. BOWEL: Status post appendectomy. Mild diverticulosis without evidence of acute diverticulitis. Fecal retention. LYMPH NODES: No enlarged mesenteric or retroperitoneal lymph nodes. VESSELS: Atherosclerotic calcifications of the abdominal aorta without evidence of aneurysm. URINARY BLADDER: Unremarkable. REPRODUCTIVE ORGANS: Absent uterus consistent with previous hysterectomy. Severe artifacts in the pelvic region from bilateral hip arthroplasty. ABDOMINAL WALL: No discrete abdominal or pelvic wall hernia. BONES: Degenerative changes and postoperative changes of fusion of the lower lumbar spine with pedicle screws. Bilateral hip arthroplasty. CT/Abdomen/Pelvis without Cont IMPRESSION: 1. No focal acute inflammatory process. 2. Mild diverticulosis without evidence of acute diverticulitis. 3. Status post cholecystectomy, appendectomy and hysterectomy. Electronically Signed: Joshua Tomlinson MD at 13:02 EST ,
--- NOTE | 2023-07-12 11:21 | EDS_ITS ---
HPI HPI - GI History of Present Illness Chief Complaint: Constipation Informant: patient Abdominal Pain/Flank Pain Onset: Days (2-3) Context: Gradual Onset Timing: Continuous Location: Diffuse Current Severity: Severe Maximum Severity: Severe Worsened by: Nothing Relieved by: Nothing Nausea/Vomiting/Emesis GI Symptom: Positive for Nausea and Vomiting Onset: Yesterday Quality: Positive for - (feculent); Negative for Blood streaks Severity: Severe Diarrhea/Melena/Hematochezia GI Symptom: Positive for - (no BM in 9-10 days); Negative for Diarrhea, Melena or Hematochezia Narrative Narrative: started with no BM's, now diffuse pain and n/v w/ feculent vomiting. Hx of multiple abd surgeries in past, no hx of SBO that she knows of. Does not feel like she needs to have a BM. Has tried stool softeners, laxatives, and fleets enemas with no success in past few days. [facility] Medical History Abdominal pain Abnormal liver CT Admitted to alcohol detoxification center Alcohol abuse Alcohol withdrawal Anemia Anxiety Arthritis Asthma BiPAP (biphasic positive airway pressure) dependence Bronchiectasis Bronchitis Chronic renal failure Chronic renal insufficiency, stage I Closed fracture of fibula, proximal, left Colitis Colitis with rectal bleeding Contusion of left hip Contusion of left shoulder Contusion of rib on right side Contusion of scalp COPD (chronic obstructive pulmonary disease) Dementia Depression DVT (deep venous thrombosis) Endocarditis Essential (primary) hypertension Former smoker Frequent falls Gastritis Gastroesophageal reflux disease History of diarrhea History of umbilical hernia HLD (hyperlipidemia) Hypertension Idiopathic right ventricular dilation Kidney disease Leukopenia Medical marijuana use Migraine Morbid obesity On home oxygen therapy GENNARO (obstructive sleep apnea) Osteoarthritis Pancytopenia Pneumonia Pyuria Respiratory failure with hypoxia Respiratory insufficiency Respiratory tract infection due to COVID-19 virus Restrictive lung disease Right bundle branch block (RBBB) Right ventricular systolic dysfunction Sepsis Sleep apnea Substance abuse Thrombocytopenia Home Medications pantoprazole 40 mg tablet,delayed release 40 mg PO DAILY ACID REFLUX 12/09/18 [History Last Taken 07/10/23] rosuvastatin 40 mg tablet 40 mg PO QHS CHOLESTEROL 07/19/21 [History Last Taken 07/10/23] melatonin 10 mg tablet 10 mg PO QHS SLEEP 07/16/22 [History Last Taken 07/10/23] potassium chloride 10 mEq tablet,extended release 10 meq PO BID SUPPLEMENT 07/16/22 [History Last Taken 07/10/23] oxybutynin chloride 10 mg tablet,extended release 24 hr 10 mg PO BID OVERCTVE BLADDER 07/18/22 [History Last Taken 07/10/23] carvedilol 3.125 mg tablet 3.125 mg PO BID HEART #60 tabs 07/20/22 [Rx Last Taken 07/10/23] albuterol sulfate 90 mcg/actuation aerosol inhaler 2 puff inhalation Q6H PRN SHORTNESS OF BREATH/WHEEZING #8.5 grams 03/05/23 [Rx Last Taken Unknown] lactobacillus combination no.4 3 billion cell capsule (Probiotic) 3,000 mmu cells PO DAILY GUT HEALTH 03/05/23 [History Last Taken Unknown] mometasone-formoterol HFA 100 mcg-5 mcg/actuation aerosol inhaler (Dulera) 2 puff inhalation BID SHORTNESS OF BREATH/WHEEZING #13 grams 03/05/23 [Rx Last Taken 07/10/23] trazodone 100 mg tablet 200 mg PO QHS SLEEP 06/29/23 [History Last Taken Unknown] ergocalciferol (vitamin D2) 1,250 mcg (50,000 unit) capsule 1,250 mcg PO MO SUPPLEMENT 07/12/23 [History Last Taken 07/09/23] temazepam 30 mg capsule 30 mg PO QHS INSOMNIA 07/12/23 [History Last Taken 07/10/23] Allergy/AdvReac Type Severity Reaction Status Date / Time house dust Allergy ITCHY EYES Verified 07/12/23 09:54 Penicillins Allergy Hives Verified 07/12/23 09:54 Seasonal Allergies: Uncoded Allergy ITCHY EYES Verified 07/12/23 09:54 Family History Father Colon cancer Mother Cancer pancreatic Surgical History History of appendectomy History of cholecystectomy History of hysterectomy History of tubal ligation Social History household members: none Smoking Status: Former smoker Tobacco: How many years used: 25 how long ago did patient quit smokin, 0.5ppd second hand exposure: Yes alcohol intake: never substance use type: does not use ROS ROS ED Constitutional Constitutional ED: Denies chills or fever(s) Eyes Eyes: Denies change in vision or diplopia ENT ENT ED: Denies rhinorrhea or sore throat Cardiovascular Cardiovascular: Denies chest pain or palpitations Respiratory/Chest Respiratory/Chest: Denies cough or dyspnea Gastrointestinal Gastrointestinal: Reports abdominal pain, nausea and vomiting; Denies diarrhea Genitourinary Genitourinary ED: Denies dysuria or hematuria Musculoskeletal Musculoskeletal: Denies back pain or neck pain Integumentary Denies abscess or rash Neurologic Neurologic: Denies headache(s), paresthesias or weakness Psychiatric Psychiatric: Denies anxiety or suicidal thoughts EXAM Physical Exam Const Vital Signs: 07/12/23 09:55 07/12/23 13:39 Temperature 98.2 F Temperature Source Temporal Pulse Rate 110 H 97 Respiratory Rate 14 18 Blood Pressure 122/82 H 104/69 Blood Pressure Mean 95 80 Pulse Ox 95 99 Oxygen Delivery Method Nasal Cannula Room Air Oxygen Flow Rate (L/min) 3 Positive well nourished and well developed General Appearance ED: well developed and NAD HEENT Reports moist mucous membranes normocephalic and atraumatic Eyes PERRL and EOMs intact bilaterally Neck full ROM and supple Resp normal respiratory effort and clear to auscultation bilaterally Cardio regular rate, regular rhythm and no murmurs GI GI Narrative: distended. tender periumbilical, RLQ, less in LLQ. no guarding/rebound. BS present. Auscultation: normoactive bowel sounds Palpation: soft Back/Spine no CVA tenderness General Back: other FROM Extremity normal to inspection General Extremety ED: Negative for edema, pulses abnormal or tenderness General Extremity: Negative for edema or pulses abnormal Neuro oriented x3, CN's II-XII intact bilaterally and no sensory deficits noted Sensorium / Orientation: awake and alert Motor Exam: strength 5/5 throughout Skin no rashes or lesions noted and no wounds MDM MDM MDM Narrative Medical decision making narrative: Patient's symptoms and history of multiple abdominal surgeries put her at a high risk of this being an acute bowel obstruction. For this reason CT imaging and labs indicated. Initially given IV morphine and Zofran along with fluids while we worked her up. However, her renal function is down a little, with her EGFR borderline. Therefore the CT was performed without IV contrast since she had been vomiting so aggressively that we avoided oral contrast. The CT was therefore performed without contrast, and although a little limited because of this, she is obese which will make the imaging a little more accurate. I reviewed the images and the report which I agree with, it basically shows what looks like significant fecal retention and no acute inflammatory abnormality and no sign of a bowel obstruction. This is very reassuring. Therefore she was amenable to trying soapsuds enema which was done, and yielded a large amount of stool and she felt significantly better with resolution of her nausea and almost complete resolution of her pain. She does not have a significant leukocytosis, her white blood count is only 4.7. For this reason, I am comfortable letting her go home. She is given return instructions and precautions and advised to get MiraLAX and drink plenty of fluids with it and follow-up with her doctor. She is comfortable with that plan. Lab Data Attestation: I reviewed the patient's lab results. Labs: Laboratory Results - last 24 hr 07/12/23 07/12/23 10:11 11:44 WBC 4.7 RBC 4.89 Hgb 13.1 Hct 42.2 MCV 86.3 MCH 26.8 L MCHC 31.0 L RDW Std Deviation 45.0 H RDW Coeff of Jaun 14.3 Plt Count 167 MPV 10.7 Immature Gran % (Auto) 0.200 Neut % (Auto) 69.4 Lymph % (Auto) 22.3 [place] % (Auto) 6.9 Eos % (Auto) 0.6 Baso % (Auto) 0.6 Absolute Neuts (auto) 3.2 Absolute Lymphs (auto) 1.04 Nucleated RBC % 0 Sodium 134 L Potassium 3.3 L Chloride 102 Carbon Dioxide 26.0 Anion Gap 6 BUN 14 Creatinine 1.61 H Estim Creat Clear Calc 47.13 Est GFR (MDRD) Af Amer 42 L Est GFR (MDRD) Non-Af 35 L BUN/Creatinine Ratio 8.7 L Glucose 95 Calcium 9.2 Total Bilirubin 1.30 H AST 18 ALT 24 Alkaline Phosphatase 158 H Total Protein 6.8 Albumin 3.8 Globulin 3.0 Albumin/Globulin Ratio 1.3 Urine Color Yellow Urine Clarity Sl. Cloudy Urine pH 6.0 Ur Specific [place] 1.020 Urine Protein 100 H Urine Glucose (UA) Normal Urine Ketones 5 H Urine Occult Blood 10 H Urine Nitrite Negative Urine Bilirubin Negative Urine Urobilinogen Normal Ur Leukocyte Esterase 100 H Urine RBC 0-5 SEEN Urine WBC 10-25 SEEN Ur Squamous Epith Cells 0-5 SEEN Urine Bacteria 0 SEEN Urine Mucus 0 SEEN Radiography Diagnostic Testing: Clinical Impression(s) from Imaging Studies Abdomen/Pelvis CT 07/12/23 11:20 IMPRESSION: 1. No focal acute inflammatory process. 2. Mild diverticulosis without evidence of acute diverticulitis. 3. Status post cholecystectomy, appendectomy and hysterectomy. Electronically Signed: Joshua Tomlinson MD at 13:02 EST , Discharge Plan Triage Chief Complaint: Constipation ED Provider: Eliazar Chavarria Dx/Rx/DC Orders Clinical Impression: Diffuse abdominal pain, Constipation, Vomiting Instructions: ED Constipation (Adult) Prescriptions: No Action Probiotic 3 billion cell capsule 3,000 mmu cells PO DAILY Dulera 100-5 mcg/actuation HFA aerosol inhaler 2 puff inhalation BID Qty: 13 3RF albuterol sulfate 90 mcg/actuation HFA aerosol inhaler 2 puff inhalation Q6H PRN (Reason: SHORTNESS OF BREATH/WHEEZING) Qty: 8.5 2RF pantoprazole 40 MG tablet 40 mg PO DAILY trazodone 100 mg tablet 200 mg PO QHS Hold Instructions: CURRENTLY ON HOLD PER DOCTORS ORDERS. TRYING TEMAZEPAM rosuvastatin 40 mg Tablet 40 mg PO QHS potassium chloride 10 mEq tablet extended release 10 meq PO BID melatonin 10 mg Tablet 10 mg PO QHS oxybutynin chloride 10 mg tablet extended release 24hr 10 mg PO BID carvedilol 3.125 mg Tablet 3.125 mg PO BID Qty: 60 0RF ergocalciferol (vitamin D2) 1,250 mcg (50,000 unit) capsule 1,250 mcg PO MO temazepam 30 mg capsule 30 mg PO QHS Primary Care Provider: Karl Moran Referrals: Karl Moran MD [Primary Care Provider] - 3-5 Days if not improving Activity Restrictions/Additional Instructions: Get MiraLAX and use 1 capful dissolved in at least 8 ounces of water daily. Drink plenty of fluids. You can double or even triple this if you feel like you need to in order to continue having bowel movements, but just make sure you are drinking plenty of water if you do this because it can make you dehydrated otherwise. Disposition Disposition: Home, Self Care
[2023-07-12] MEDS: Ondansetron 4 MG/2 ML Vial IV (11:29)
[2023-07-12] MEDS: 0.9% Normal Saline (1000mL) 1,000 ML 1000 ML IV (11:29)
[2023-07-12] MEDS: Morphine 4 MG/ML Syringe IV (11:30)
[2023-07-12 11:31] LABS: Absolute Lymphocyte Count 1.04 X10^3/uL (0.83-4.51); Absolute Neutrophil Count 3.2 X10^3/uL (2.0-7.7); Basophil# 0.03 X10^3/uL; Basophil% 0.6 % (0-1); Eosinophil# 0.03 X10^3/uL; Eosinophils% 0.6 % (0-5); Hematocrit 42.2 % (37-47); Hemoglobin 13.1 g/dL (12.0-15.0); Lymphocyte # 1.04 X10^3/ul (0.83-4.51); Lymphocyte % 22.3 % (19-41); Mean Corpuscular Hgb 26.8 pg (27.0-32.0); Mean Corpuscular Volume 86.3 fL (81-99); Mean Platelet Vol. 10.7 fl (6.2-12.0); Monocyte# 0.32 X10^3/uL; Monocyte% 6.9 % (0-10); NRBC Flagged by Analyzer 0 % (0-5); Neutrophil # 3.24 X10^3/uL (2.7-7.7); Neutrophil % 69.4 % (47-70); Platelet Count 167 K/mm3 (150-450); RBC Distribution Width CV 14.3 % (11.6-14.6); Red Blood Count 4.89 M/mm3 (4.2-5.4); White Blood Count 4.7 K/mm3 (4.4-11.0)
[2023-07-12 11:46] LABS: ALB/GLOB Ratio 1.3 RATIO (0.9-2.4); AST(SGOT) 18 U/L (15-37); Alanine Aminotransfer ALT/SGPT 24 U/L (13-56); Albumin, Serum 3.8 g/dL (3.2-5.0); Alkaline Phosphatase 158 U/L (45-117); Anion Gap 6 (5-15); BUN 14 mg/dL (7-18); BUN/Creat Ratio 8.7 RATIO (10-20); Calcium,Total 9.2 mg/dL (8.5-10.1); Chloride 102 mmol/L (98-107); Creatinine, Serum 1.61 mg/dL (0.55-1.02); EST Glomerular Filtration Rate 35 mL/min (>60); Est Glom Filt Rate - Afr Amer 42 mL/min (>60); Estimated Creatinine Clearance 47.13 ml/min; Glucose 95 mg/dL (74-106); Potassium 3.3 mmol/L (3.5-5.1); Protein, Total 6.8 g/dL (6.4-8.2); Sodium Level 134 mmol/L (136-145)
[2023-07-12 12:03] LABS: Bacteria 0 SEEN /hpf (None Seen); Mucous, Urine 0 SEEN /hpf (<or=2+)
[2023-07-12 12:18] LABS: Color, Urine Yellow (Yellow); Glucose, Dipstick Normal (Normal); Ketone-Dipstick 5 mg/dl (Negative); Leukocyte Esterase-Dipstick 100 /ul (Negative); Nitrite-Dipstick Negative (Negative); Occult Blood-Urine 10 /ul (Negative); Protein-Dipstick 100 mg/dl (Negative); Urine Bilirubin Dipstick Negative (Negative); Urine Clarity Sl. Cloudy (Clear); Urine Urobilinogen Normal (Normal)
[2023-07-12 12:46] LABS: Red Blood Cells-Urine 0-5 SEEN /hpf (0-5); Squamous Epithelial Cells - UA 0-5 SEEN /hpf (5-10); White Blood Cells 10-25 SEEN /hpf (0-5)
[2023-07-12] MEDS: Metoclopramide 10 MG/2 ML Vial 2.5 MG IV (13:13)
[2023-07-12 13:39] VITALS: BP 104/69; PULSE 97; RESP 18; O2SAT 99
== END 2023-07-12 15:13 | disposition home or self-care (01) ==
PROVIDERS: Emergency Provider Emergency Medicine; PCP Family Medicine; Visit Provider Emergency Medicine
DX: R10.9 Unspecified abdominal pain (principal); J44.9 Chronic obstructive pulmonary disease, unspecified; R11.2 Nausea with vomiting, unspecified; Z87.891 Personal history of nicotine dependence; K59.00 Constipation, unspecified; I10 Essential (primary) hypertension; E78.5 Hyperlipidemia, unspecified; K21.9 Gastro-esophageal reflux disease without esophagitis; Z79.899 Other long term (current) drug therapy; Z79.51 Long term (current) use of inhaled steroids; G47.30 Sleep apnea, unspecified; Z90.49 Acquired absence of other specified parts of digestive tract; Z90.710 Acquired absence of both cervix and uterus
CPT/HCPCS: 74176; 80053; 81001; 85025; 96361; 96374; 96375; 99285; A4216; J2405

== ENCOUNTER 2023-08-18 19:16 | Emergency (ER) | payer MEDICARE, MEDICAID, SELFPAY ==
[2023-08-18 19:19] VITALS: BP 130/116; PULSE 97; RESP 14; TEMP 36.6; O2SAT 97
--- NOTE | 2023-08-18 19:34 | ED.RN ---
193: Two attempts made to contact [facility] with no answer, message left for a nurse to call back.
--- NOTE | 2023-08-18 19:39 | RAD_ITS ---
INDICATION: back pain EXAMINATION/TECHNIQUE: X-RAY - XR Spine Thoracic 3 Views COMPARISON: Imaging of the lumbar spine obtained same date. FINDINGS: VERTEBRAE: Postoperative changes at the lumbosacral junction as previously noted. There is straightening of thoracic kyphosis. Mild dextroscoliotic curvature of the thoracic spine. No fractures noted. No spondylolisthesis. Preservation of the normal thoracic kyphosis. No significant facet arthropathy. DISCS: Disc spaces are maintained. INCLUDED CHEST/ABDOMEN: No acute abnormalities. RAD/Thoracic Spine 3 Views IMPRESSION: 1. Postoperative changes as previously described at the thoracolumbar junction. 2. Dextroscoliotic curvature of the thoracic spine. 3. No evidence of acute fracture or acute bony changes involving the thoracic. Electronically Signed: Rui Blackwell MD at 20:49 EDT ,
--- NOTE | 2023-08-18 19:41 | EDS_ITS ---
HPI <Dr. Jackson Gordillo DO - Last Filed: 08/19/23 22:40> History of Present Illness Chief Complaint: Back Narrative Narrative: Patient presenting with back pain. This is a chronic issue. She is from the [facility] facility after having her spinal fusion revised by Dr. Banks at [facility]. She states she still had residual pain in the right leg from her original surgery. Patient had removal of hardware at lumbar 3, 4, 5 and laminectomy lumbar #2 with fusion of thoracic 11 through L3. There was instrumentation from T11-L5 and an allograft was placed. Patient states she fell at some point while she was at the facility and it took 3 people to get her up. She complains of back pain. She states her soha are in place and she is supposed to have them out next week. Denies any systemic signs or symptoms. She has been on Percocet without relief of her pain. She states that she is asked the nursing staff to call her surgeon although he has not been able to get anybody on the phone. Patient states has been constipated but denies loss of bladder or bowel control other than constipation. [facility] <Dr. Jackson Gordillo DO - Last Filed: 08/19/23 22:40> [facility] Medical History Abdominal pain Abnormal liver CT Admitted to alcohol detoxification center Alcohol abuse Alcohol withdrawal Anemia Anxiety Arthritis Asthma BiPAP (biphasic positive airway pressure) dependence Bronchiectasis Bronchitis Chronic renal failure Chronic renal insufficiency, stage I Closed fracture of fibula, proximal, left Colitis Colitis with rectal bleeding Contusion of left hip Contusion of left shoulder Contusion of rib on right side Contusion of scalp COPD (chronic obstructive pulmonary disease) Dementia Depression DVT (deep venous thrombosis) Endocarditis Essential (primary) hypertension Former smoker Frequent falls Gastritis Gastroesophageal reflux disease History of diarrhea History of umbilical hernia HLD (hyperlipidemia) Hypertension Idiopathic right ventricular dilation Kidney disease Leukopenia Medical marijuana use Migraine Morbid obesity On home oxygen therapy GENNARO (obstructive sleep apnea) Osteoarthritis Pancytopenia Pneumonia Pyuria Respiratory failure with hypoxia Respiratory insufficiency Respiratory tract infection due to COVID-19 virus Restrictive lung disease Right bundle branch block (RBBB) Right ventricular systolic dysfunction Sepsis Sleep apnea Substance abuse Thrombocytopenia Home Medications pantoprazole 40 mg tablet,delayed release 40 mg PO DAILY ACID REFLUX 12/09/18 [History Last Taken 07/10/23] rosuvastatin 40 mg tablet 40 mg PO QHS CHOLESTEROL 07/19/21 [History Last Taken 07/10/23] melatonin 10 mg tablet 10 mg PO QHS SLEEP 07/16/22 [History Last Taken 07/10/23] potassium chloride 10 mEq tablet,extended release 10 meq PO BID SUPPLEMENT 07/16/22 [History Last Taken 07/10/23] oxybutynin chloride 10 mg tablet,extended release 24 hr 10 mg PO BID OVERCTVE BLADDER 07/18/22 [History Last Taken 07/10/23] carvedilol 3.125 mg tablet 3.125 mg PO BID HEART #60 tabs 07/20/22 [Rx Last Taken 07/10/23] albuterol sulfate 90 mcg/actuation aerosol inhaler 2 puff inhalation Q6H PRN SHORTNESS OF BREATH/WHEEZING #8.5 grams 03/05/23 [Rx Last Taken Unknown] lactobacillus combination no.4 3 billion cell capsule (Probiotic) 3,000 mmu cells PO DAILY GUT HEALTH 03/05/23 [History Last Taken Unknown] mometasone-formoterol HFA 100 mcg-5 mcg/actuation aerosol inhaler (Dulera) 2 puff inhalation BID SHORTNESS OF BREATH/WHEEZING #13 grams 03/05/23 [Rx Last Taken 07/10/23] trazodone 100 mg tablet 200 mg PO QHS SLEEP 06/29/23 [History Last Taken Unknown] ergocalciferol (vitamin D2) 1,250 mcg (50,000 unit) capsule 1,250 mcg PO MO SUPPLEMENT 07/12/23 [History Last Taken 07/09/23] temazepam 30 mg capsule 30 mg PO QHS INSOMNIA 07/12/23 [History Last Taken 07/10/23] oxycodone-acetaminophen 5 mg-325 mg tablet (Percocet) See Rx Instructions .Route .COMPLEX PRN pain 3 days #12 tabs 08/18/23 [Rx Last Taken Unknown] Allergy/AdvReac Type Severity Reaction Status Date / Time house dust Allergy ITCHY EYES Verified 08/18/23 19:19 Penicillins Allergy Hives Verified 08/18/23 19:19 Seasonal Allergies: Uncoded Allergy ITCHY EYES Verified 08/18/23 19:19 Family History Father Colon cancer Mother Cancer pancreatic Surgical History History of appendectomy History of cholecystectomy History of hysterectomy History of tubal ligation Social History household members: none Smoking Status: Former smoker Tobacco: How many years used: 25 how long ago did patient quit smokin, 0.5ppd second hand exposure: Yes alcohol intake: never substance use type: does not use ROS <Dr. Jackson Gordillo DO - Last Filed: 08/19/23 22:40> ROS ED Constitutional Constitutional ED: Denies chills, fever(s) or sweats Eyes Eyes: Denies blurry vision or change in vision ENT ENT ED: Denies ear pain or sore throat Cardiovascular Cardiovascular: Denies chest pain, palpitations or racing heartbeat Respiratory/Chest Respiratory/Chest: Denies cough, dyspnea or sputum Gastrointestinal Gastrointestinal: Denies abdominal pain, constipation, diarrhea, nausea or vomiting Genitourinary Genitourinary ED: Denies dysuria, hematuria or urinary frequency Musculoskeletal Musculoskeletal: Reports back pain; Denies arthralgias or myalgias Integumentary Denies abscess, Abrasions or rash Neurologic Neurologic: Denies headache(s), paresthesias or weakness Psychiatric Psychiatric: Denies anxiety, depression, suicidal ideation or suicidal thoughts Endocrine Endocrinology: Denies polydipsia or polyuria EXAM <Dr. Jackson Gordillo DO - Last Filed: 08/19/23 22:40> Physical Exam Const Vital Signs: 08/18/23 23:12 Temperature 98.1 F Pulse Rate 88 Respiratory Rate 14 Blood Pressure 108/64 Blood Pressure Mean 78 Pulse Ox 94 Positive well nourished and obese Nutritional Appearance: obese HEENT Reports moist mucous membranes Resp normal respiratory effort Cardio regular rate and regular rhythm GI normal to inspection, nondistended, normoactive bowel sounds Back/Spine Back/Spine Narrative: Midline soha intact. No wound dehiscence. No surrounding induration or erythema. No drainage. Extremity normal to inspection Neuro oriented x3 Sensorium / Orientation: alert Skin no rashes or lesions noted <Tomas Live MD - Last Filed: 08/18/23 23:11> Physical Exam Const Vital Signs: 08/18/23 23:12 Temperature 98.1 F Pulse Rate 88 Respiratory Rate 14 Blood Pressure 108/64 Blood Pressure Mean 78 Pulse Ox 94 MDM <Dr. Jackson Gordillo DO - Last Filed: 08/19/23 22:40> [facility] Narrative Medical decision making narrative: Patient with acute on chronic back pain. She is given a dose of morphine IM and Zofran p.o. Will obtain lumbar and thoracic films. Will reach out to her spinal surgeon Dr. Banks. X-rays of the lumbar and thoracic spine on my interpretation show no acute process. Radiology interprets this and agrees. They state that the revision appears to be in place. Patient counseled on negative imaging. She still having pain she was given 0.5 mg of Dilaudid IM. Will try to reach out to Dr. Banks again but have not heard reply back. Discussed with she and her friend at the bedside that I am awaiting callback. 2129 have made 2 phone calls to [facility] without any call back. Will initiate call to transfer line to see if this will speed up the process as the patient is still in significant pain and will likely need to be transferred. Impression 1. Back pain Radiography Diagnostic Testing: Clinical Impression(s) from Imaging Studies Thoracic Spine X-Ray 08/18/23 19:39 IMPRESSION: 1. Postoperative changes as previously described at the thoracolumbar junction. 2. Dextroscoliotic curvature of the thoracic spine. 3. No evidence of acute fracture or acute bony changes involving the thoracic. Electronically Signed: Rui Blackwell MD at 20:49 EDT , Lumbar Spine X-Ray 08/18/23 20:00 IMPRESSION: 1. Revision of previous posterior fixation, currently pedicle screw posterior fixation from T12 to L5. Persistent levoscoliotic curvature. 2. No evidence however of fracture or hardware failure. Electronically Signed: Rui Blackwell MD at 20:24 EDT , <Tomas Live MD - Last Filed: 08/18/23 23:11> [facility] Narrative Medical decision making narrative: Patient with acute on chronic back pain. She is given a dose of morphine IM and Zofran p.o. Will obtain lumbar and thoracic films. Will reach out to her spinal surgeon Dr. Banks. X-rays of the lumbar and thoracic spine on my interpretation show no acute process. Radiology interprets this and agrees. They state that the revision appears to be in place. Patient counseled on negative imaging. She still having pain she was given 0.5 mg of Dilaudid IM. Will try to reach out to Dr. Banks again but have not heard reply back. Discussed with she and her friend at the bedside that I am awaiting callback. 2129 have made 2 phone calls to [facility] without any call back. Will initiate call to transfer line to see if this will speed up the process as the patient is still in significant pain and will likely need to be transferred. Impression 1. Back pain Dr. Live: Patient endorsed to me by Dr. Jackson Gordillo to discuss the patient with Dr. Bean. I received a call back from Dr. Patel on his behalf. He states that as the patient is 9 to 10 days out from her surgery, that having her take Percocet 1 to 2 tablets every 4-6 hours as needed would be adequate, and he refused her in transfer, because it was not felt that this far out from surgery that she needed evaluation emergently. She is to call her surgeon's office on Sunday, 2 days from now. I discussed with the patient that she is taking a as needed medication and she has been asking for it every 5 hours. She was told that she should ask for it every 4 hours as needed because that is the way it is written. I did write a prescription for 12 tablets / 3 days to take 1 to 2 tablets every 4-6 hours as needed to help control her pain. She had already received morphine and Dilaudid 0.5 mg intramuscularly. She would like another intramuscular injection prior to her discharge back to her [facility] facility. I do not feel that she requires admission to the hospital at this time. Disposition is discharged in stable condition. Radiography Diagnostic Testing: Clinical Impression(s) from Imaging Studies Thoracic Spine X-Ray 08/18/23 19:39 IMPRESSION: 1. Postoperative changes as previously described at the thoracolumbar junction. 2. Dextroscoliotic curvature of the thoracic spine. 3. No evidence of acute fracture or acute bony changes involving the thoracic. Electronically Signed: Rui Blackwell MD at 20:49 EDT , Lumbar Spine X-Ray 08/18/23 20:00 IMPRESSION: 1. Revision of previous posterior fixation, currently pedicle screw posterior fixation from T12 to L5. Persistent levoscoliotic curvature. 2. No evidence however of fracture or hardware failure. Electronically Signed: Rui Blackwell MD at 20:24 EDT , Discharge Plan Triage Chief Complaint: Back ED Provider: Jackson Gordillo Dx/Rx/DC Orders Clinical Impression: Intractable low back pain, Status post lumbar spine operation Instructions: ED Back Pain (Acute or Chronic), ED Pain, Acute, Uncertain Cause Prescriptions: New oxycodone-acetaminophen [Percocet] 5-325 mg tablet See Rx Instructions .ROUTE .COMPLEX PRN (Reason: pain) 3 Days Qty: 12 0RF Rx Instructions: 1 TAB orally as needed ;1 TAB orally as needed q4-q6 hours No Action Probiotic 3 billion cell capsule 3,000 mmu cells PO DAILY Dulera 100-5 mcg/actuation HFA aerosol inhaler 2 puff inhalation BID Qty: 13 3RF albuterol sulfate 90 mcg/actuation HFA aerosol inhaler 2 puff inhalation Q6H PRN (Reason: SHORTNESS OF BREATH/WHEEZING) Qty: 8.5 2RF pantoprazole 40 MG tablet 40 mg PO DAILY trazodone 100 mg tablet 200 mg PO QHS Hold Instructions: CURRENTLY ON HOLD PER DOCTORS ORDERS. TRYING TEMAZEPAM rosuvastatin 40 mg Tablet 40 mg PO QHS potassium chloride 10 mEq tablet extended release 10 meq PO BID melatonin 10 mg Tablet 10 mg PO QHS oxybutynin chloride 10 mg tablet extended release 24hr 10 mg PO BID carvedilol 3.125 mg Tablet 3.125 mg PO BID Qty: 60 0RF ergocalciferol (vitamin D2) 1,250 mcg (50,000 unit) capsule 1,250 mcg PO MO temazepam 30 mg capsule 30 mg PO QHS Primary Care Provider: Corin Mariscal Referrals: Karl Moran MD [Non-Staff] - Activity Restrictions/Additional Instructions: Call Dr. Bean's office first thing Sunday. You may speak with his physician assistant secretary regarding pain control. Increase your Percocet to 1 to 2 tablets every 4-6 hours as needed pain. Disposition Disposition: Half-Way Facility Discharge Location: [facility] Discharge Date/Time: 08/19/23 00:48
[2023-08-18] MEDS: Ondansetron ODT 4 MG Tablet PO (19:46)
[2023-08-18] MEDS: Morphine 4 MG/ML Syringe IM (19:46)
--- NOTE | 2023-08-18 19:56 | ED.RN ---
Attempted to call s/o Seth Felder upon the patients request. No answer at this time, I left a voicemail for a call back. Phone number utilized was [phone]. 1954: Attempted to call sister, Carlita Romero per patient request, no answer at this time.
--- NOTE | 2023-08-18 20:00 | RAD_ITS ---
INDICATION: back pain EXAMINATION/TECHNIQUE: X-RAY - XR Spine Lumbar 2 or 3 Views COMPARISON: 04/16/2017 FINDINGS: VERTEBRAE: 1. There has been revision of the previous posterior fixation of the lumbar spine, currently pedicle screw and posterior jennifer stabilization from T12 to L5. Laminectomy defects are present at L4-5. There is persistent levoscoliotic curvature however no fracture or hardware failure. 2. Midline skin soha are present. 3. No fracture. No spondylolisthesis. Preservation of the normal lumbar lordosis. 4. Diffuse facet hypertrophic changes are present throughout the lumbar spine. DISCS: Disc spaces are unchanged. INCLUDED ABDOMEN: Normal bowel gas pattern. Extensive vascular calcifications in the aorta. RAD/Lumbar Spine 2 or 3 Views IMPRESSION: 1. Revision of previous posterior fixation, currently pedicle screw posterior fixation from T12 to L5. Persistent levoscoliotic curvature. 2. No evidence however of fracture or hardware failure. Electronically Signed: Rui Blackwell MD at 20:24 EDT ,
--- NOTE | 2023-08-18 20:09 | ED.RN ---
Jordy Felder called again with an answer. Per the patients request, he said he could bring the patients purse and phone if [facility]
[2023-08-18 21:27] VITALS: BP 109/48; PULSE 99; RESP 18; TEMP 37; O2SAT 97
[2023-08-18] MEDS: HYDROmorphone 0.5 MG/0.5 ML SYRINGE IM ×2 (21:27→23:21)
--- NOTE | 2023-08-18 21:40 | ED.RN ---
214: callled [facility], no answer.
[2023-08-18 23:12] VITALS: BP 108/64; PULSE 88; RESP 14; TEMP 36.7; O2SAT 94
== END 2023-08-19 00:48 | disposition skilled nursing facility (03) ==
PROVIDERS: Emergency Provider Student in an Organized Health Care Education/Training Program; PCP Family Medicine; Visit Provider Student in an Organized Health Care Education/Training Program
DX: M54.50 Low back pain, unspecified (principal); J44.9 Chronic obstructive pulmonary disease, unspecified; Z87.891 Personal history of nicotine dependence; Z98.1 Arthrodesis status; I12.9 Hypertensive chronic kidney disease with stage 1 through stage 4 chronic kidney disease, or unspecified chronic kidney disease; N18.1 Chronic kidney disease, stage 1; E78.5 Hyperlipidemia, unspecified; G47.33 Obstructive sleep apnea (adult) (pediatric); Z99.81 Dependence on supplemental oxygen; K21.9 Gastro-esophageal reflux disease without esophagitis; Z79.899 Other long term (current) drug therapy; Z79.51 Long term (current) use of inhaled steroids; Z90.49 Acquired absence of other specified parts of digestive tract; Z90.710 Acquired absence of both cervix and uterus; Z98.51 Tubal ligation status
CPT/HCPCS: 72072; 72100; 96372; 96374; 96376; 99284

== ENCOUNTER 2024-01-28 15:06 | Inpatient (IN) | payer MEDICARE, MEDICAID, SELFPAY ==
[2024-01-28] VITALS (9 sets, daily range): BP systolic 111–141; BP diastolic 62–86; PULSE 72–86; RESP 14–24; TEMP 35.9–36.8; O2SAT 97–100; BMI 40.5; BMI 38.1
[2024-01-28 15:45] LABS: Allen Test Positive; Base Excess 7 mmol/L (-2 to +2); Bicarbonate 32.7 mmol/L (22-26); Blood Gas Specimen Type ART; Mode Not entered; O2 Delivery Device Cannula; PO2 83 mmHG (75-100); SITE L Radial; SO2 95 % (95-99); Total Carbon Dioxide 35 mmol/L; pCO2 61.5 mmHg (35-45); pH 7.33 (7.35-7.45)
--- NOTE | 2024-01-28 16:00 | CT_ITS ---
STUDY: CT BRAIN WITHOUT CONTRAST REASON FOR EXAM: Female, 63 years old. Altered mental status RADIATION DOSAGE (If Supplied By Facility): CTDIvol = ( 44.99 ) mGy, DLP = ( 829.85 ) mGycm TECHNIQUE: Transaxial CT imaging of the brain was performed without administration of intravenous contrast material. Individualized dose optimization techniques were used for this CT. COMPARISON: 12/29/2021 FINDINGS: Normal soft tissue structures. Normal calvarium. Normal size ventricles and extra-axial spaces for the patient''s age. Normal white matter tracts of the cerebral hemispheres. Normal basal ganglia and thalami. Normal brainstem. Normal cerebellum. There is no intracranial hemorrhage. There are no findings of an acute ischemic infarction. Normal visualized paranasal sinuses. CT/Brain/Head without Contrast IMPRESSION: Normal unenhanced CT scan of the brain. Electronically Signed: Avinash Yancey MD at 17:23 EDT ,
--- NOTE | 2024-01-28 16:00 | EX.ED.DYSGE1 ---
HPI History of Present Illness Chief Complaint: Weakness Informant: patient and family Onset/Context/Timing Onset: Today Timing: Continuous Worsened by: Nothing Relieved by: Nothing Narrative Narrative: Patient presents with weakness after a fall that was noticed today. Family went to check on the patient this afternoon and found the patient laying on the floor. Family is unsure how long the patient was laying on the floor. Patient is a poor informant. Patient admits to some pain in her back. Patient denies any chest pain or shortness of breath. Patient is only alert and oriented to person, place, and year. Patient is slow to respond to questions. [facility] Medical History Contusion of left hip Contusion of rib on right side Contusion of left shoulder Contusion of scalp Closed fracture of fibula, proximal, left Pyuria Substance abuse Kidney disease Former smoker BiPAP (biphasic positive airway pressure) dependence Sleep apnea On home oxygen therapy Hypertension Dementia Alcohol withdrawal Alcohol abuse Admitted to alcohol detoxification center Medical marijuana use Frequent falls DVT (deep venous thrombosis) Right ventricular systolic dysfunction Right bundle branch block (RBBB) Essential (primary) hypertension Sepsis Abdominal pain Migraine Chronic renal insufficiency, stage I Pancytopenia Respiratory tract infection due to COVID-19 virus Endocarditis Gastritis Restrictive lung disease Colitis Osteoarthritis Chronic renal failure Depression GENNARO (obstructive sleep apnea) Pneumonia Bronchitis Asthma COPD (chronic obstructive pulmonary disease) Morbid obesity HLD (hyperlipidemia) Bronchiectasis Idiopathic right ventricular dilation Thrombocytopenia Leukopenia Abnormal liver CT Anemia Anxiety Respiratory insufficiency Respiratory failure with hypoxia Colitis with rectal bleeding History of umbilical hernia History of diarrhea Arthritis Gastroesophageal reflux disease Home Medications ?Medication ?Instructions ?Recorded ?Last Taken ?Type pantoprazole 40 mg tablet,delayed 40 mg PO DAILY ACID REFLUX 12/09/18 07/10/23 History release rosuvastatin 40 mg tablet 40 mg PO QHS CHOLESTEROL 07/19/21 07/10/23 History melatonin 10 mg tablet 10 mg PO QHS SLEEP 07/16/22 07/10/23 History potassium chloride 10 mEq 10 meq PO BID SUPPLEMENT 07/16/22 07/10/23 History tablet,extended release oxybutynin chloride 10 mg 10 mg PO BID OVERCTVE BLADDER 07/18/22 07/10/23 History tablet,extended release 24 hr carvedilol 3.125 mg tablet 3.125 mg PO BID HEART #60 tabs 07/20/22 07/10/23 Rx albuterol sulfate 90 mcg/actuation 2 puff inhalation Q6H PRN 03/05/23 Unknown Rx aerosol inhaler SHORTNESS OF BREATH/WHEEZING #8.5 grams lactobacillus combination no.4 3 3,000 mmu cells PO DAILY GUT HEALTH 03/05/23 Unknown History billion cell capsule (Probiotic) mometasone-formoterol HFA 100 2 puff inhalation BID SHORTNESS OF 03/05/23 07/10/23 Rx mcg-5 mcg/actuation aerosol BREATH/WHEEZING #13 grams inhaler (Dulera) trazodone 100 mg tablet 200 mg PO QHS SLEEP 06/29/23 Unknown History ergocalciferol (vitamin D2) 1,250 1,250 mcg PO MO SUPPLEMENT 07/12/23 07/09/23 History mcg (50,000 unit) capsule temazepam 30 mg capsule 30 mg PO QHS INSOMNIA 07/12/23 07/10/23 History oxycodone-acetaminophen 5 mg-325 See Rx Instructions .Route 08/18/23 Unknown Rx mg tablet (Percocet) .COMPLEX PRN pain 3 days #12 tabs alprazolam 0.5 mg tablet 0.5 mg PO TID PRN 01/28/24 Unknown History fluoxetine 40 mg capsule 40 mg PO DAILY 01/28/24 Unknown History linaclotide 290 mcg capsule 290 mcg PO DAILY 01/28/24 Unknown History (Linzess) semaglutide 0.25 mg or 0.5 mg (2 0.25 mg subcut QWEEK 01/28/24 Unknown History mg/3 mL) subcutaneous pen injector sennosides 8.6 mg tablet (Aminata-guy) 8.6 mg PO BID PRN 01/28/24 Unknown History trospium 20 mg tablet 20 mg PO BID 01/28/24 Unknown History Allergy/AdvReac Type Severity Reaction Status Date / Time house dust Allergy ITCHY EYES Verified 08/18/23 19:19 Penicillins Allergy Hives Verified 08/18/23 19:19 Seasonal Allergies: Uncoded Allergy ITCHY EYES Verified 08/18/23 19:19 Family History Father Colon cancer Mother Cancer pancreatic Surgical History History of tubal ligation History of appendectomy History of hysterectomy History of cholecystectomy Social History household members: none Smoking Status: Former smoker Tobacco: How many years used: 25 how long ago did patient quit smokin, 0.5ppd second hand exposure: Yes alcohol intake: never substance use type: does not use ROS ROS ED Review of Systems ROS Unobtainable: due to mental condition Musculoskeletal Musculoskeletal: Reports back pain EXAM Physical Exam Const Vital Signs: 01/28/24 15:07 01/28/24 16:07 01/28/24 16:16 Temperature 97.7 F L Temperature Source Oral Pulse Rate 82 Respiratory Rate 24 H Respiratory Pattern Normal Blood Pressure 132/73 H Blood Pressure Mean 92 Pulse Ox 100 Oxygen Delivery Method Nasal Cannula Room Air Oxygen Flow Rate (L/min) 3 01/28/24 17:18 01/28/24 19:00 Temperature Temperature Source Pulse Rate 79 80 Respiratory Rate 17 19 H Respiratory Pattern Blood Pressure 141/86 H 123/62 H Blood Pressure Mean 104 82 Pulse Ox 99 99 Oxygen Delivery Method Room Air Room Air Oxygen Flow Rate (L/min) Positive well nourished HEENT Reports dry mucous membranes Mouth ED: Yes dry mucous membranes Mouth: dry mucous membranes Neck supple and no JVD Resp normal respiratory effort and clear to auscultation bilaterally Auscultation: diminished lung sounds Cardio regular rate and regular rhythm GI non-distended Palpation: soft Neuro CN's II-XII intact bilaterally and no sensory deficits noted Sensorium / Orientation: alert and orientation impaired Motor Exam: strength 5/5 throughout Psych Mood & Affect: depressed MDM MDM MDM Narrative Medical decision making narrative: Differential diagnosis includes rhabdomyolysis, sepsis, cardiac dysrhythmia, cardiac ischemia, electrolyte abnormality, dehydration, stroke, intracranial bleeding, hypercarbia, and urinary tract infection. CT scan of the brain will be obtained to assess for intracranial bleeding and stroke. Chest x-ray will be obtained to assess for pneumonia and pneumothorax. EKG will be obtained to assess for cardiac dysrhythmia and cardiac ischemia. CBC will be obtained to assess for leukocytosis and anemia. Comprehensive metabolic profile will be obtained to assess for hepatic function, renal function, and electrolyte abnormality. Serum lactate will be obtained to assess for sepsis. Urinalysis will be obtained to assess for urinary tract infection and hematuria. Urine drug screen will be obtained to assess for substance abuse. PT was INR and PTT will be obtained to assess for coagulopathy. COVID-19, influenza, and RSV PCR will be obtained to assess for viral infection. Blood culture will be obtained to assess for sepsis. Urine culture will be obtained to assess for urinary tract infection. Arterial blood gas will be obtained to assess for acidosis, alkalosis, hypercarbia, and hypoxia. Lab Data Attestation: I reviewed the patient's lab results. Lab results narrative: CBC was reviewed. There is a mild anemia with a hemoglobin of 10.4 and hematocrit 34.3. Platelets were slightly low at 135. PT with INR and PTT were reviewed and were within normal limits. Comprehensive metabolic profile was reviewed. Creatinine was slightly elevated at 1.16. The remainder was within normal limits. Serum lactate was reviewed and was normal at 1.3. Total CPK was reviewed and was slightly elevated at 287. High-sensitivity troponin was reviewed and was normal at 7. Urinalysis was reviewed. There is no evidence of urinary tract infection or hematuria. 2-hour repeat high-sensitivity troponin was reviewed and was normal at 6. COVID-19 PCR was reviewed and was negative. Influenza PCR was reviewed and was negative for influenza A and influenza B. RSV PCR was reviewed and was negative. Labs: Laboratory Results - last 24 hr 01/28/24 01/28/24 01/28/24 15:15 16:00 16:18 WBC 5.4 RBC 3.77 L Hgb 10.4 L Hct 34.3 L MCV 91.0 MCH 27.6 MCHC 30.3 L RDW Std Deviation 46.7 H RDW Coeff of Jaun 13.9 Plt Count 135 L MPV 9.9 Immature Gran % (Auto) 0.200 Neut % (Auto) 85.4 H Lymph % (Auto) 6.9 L [place] % (Auto) 7.1 Eos % (Auto) 0.2 Baso % (Auto) 0.2 Absolute Neuts (auto) 4.6 Absolute Lymphs (auto) 0.37 L Nucleated RBC % 0 PT 12.5 INR 0.9 APTT 25.0 Sodium 141 Potassium 3.5 Chloride 104 Carbon Dioxide 30.0 Anion Gap 7 BUN 16 Creatinine 1.16 H Estim Creat Clear Calc 66.62 Est GFR (MDRD) Af Amer 61 Est GFR (MDRD) Non-Af 50 L BUN/Creatinine Ratio 13.8 Glucose 100 Lactic Acid 1.3 Calcium 9.2 Total Bilirubin 0.90 AST 25 ALT 22 Alkaline Phosphatase 96 Total Creatine Kinase 287 H Troponin I High Sens 7 Total Protein 6.1 L Albumin 3.4 Globulin 2.7 Albumin/Globulin Ratio 1.3 Urine Color Pooja Urine Clarity Clear Urine pH 6.5 Ur Specific Jewell 1.010 Urine Protein 100 H Urine Glucose (UA) Normal Urine Ketones Negative Urine Occult Blood 10 H Urine Nitrite Negative Urine Bilirubin 1 H Urine Urobilinogen 8 H Ur Leukocyte Esterase Negative Urine RBC 0 SEEN Urine WBC 0 SEEN Ur Squamous Epith Cells 0 SEEN Urine Bacteria 2+ Hyaline Casts 0-5 SEEN Coarse Granular Casts 0-5 SEEN Urine Mucus 1+ Urine Opiates Screen NEGATIVE Urine Methadone Screen NEGATIVE Ur Barbiturates Screen NEGATIVE Ur Phencyclidine Scrn NEGATIVE Ur Amphetamines Screen NEGATIVE MDMA (Ecstasy) Screen POSITIVE H U Benzodiazepines Scrn POSITIVE H Urine Cocaine Screen NEGATIVE U Cannabinoids Screen NEGATIVE Ur Drug Screen Comment 01/28/24 18:28 WBC RBC Hgb Hct MCV MCH MCHC RDW Std Deviation RDW Coeff of Jaun Plt Count MPV Immature Gran % (Auto) Neut % (Auto) Lymph % (Auto) [place] % (Auto) Eos % (Auto) Baso % (Auto) Absolute Neuts (auto) Absolute Lymphs (auto) Nucleated RBC % PT INR APTT Sodium Potassium Chloride Carbon Dioxide Anion Gap BUN Creatinine Estim Creat Clear Calc Est GFR (MDRD) Af Amer Est GFR (MDRD) Non-Af BUN/Creatinine Ratio Glucose Lactic Acid Calcium Total Bilirubin AST ALT Alkaline Phosphatase Total Creatine Kinase Troponin I High Sens 6 Total Protein Albumin Globulin Albumin/Globulin Ratio Urine Color Urine Clarity Urine pH Ur Specific Jewell Urine Protein Urine Glucose (UA) Urine Ketones Urine Occult Blood Urine Nitrite Urine Bilirubin Urine Urobilinogen Ur Leukocyte Esterase Urine RBC Urine WBC Ur Squamous Epith Cells Urine Bacteria Hyaline Casts Coarse Granular Casts Urine Mucus Urine Opiates Screen Urine Methadone Screen Ur Barbiturates Screen Ur Phencyclidine Scrn Ur Amphetamines Screen MDMA (Ecstasy) Screen U Benzodiazepines Scrn Urine Cocaine Screen U Cannabinoids Screen Ur Drug Screen Comment ABG Data Attestation: I personally reviewed and interpreted this ABG as follows: Interpretation: Arterial blood gas was obtained and showed a pH of 7.33, pO2 of 83, pCO2 of 61.5, bicarb of 32.7, and oxygen saturation of 95% on 3 L nasal cannula. ABG results: ABG 01/28/24 15:42 Specimen Type ART Sample Site L Radial pH 7.33 L Bicarbonate Actual 32.7 H Total CO2 35 Base Excess 7 H O2 Saturation 95 O2 % 3.0 ABG pCO2 61.5 H ABG pO2 83 Arian Test Positive O2 Delivery Device Cannula Vent Mode Not entered Radiography Diagnostic Testing: Clinical Impression(s) from Imaging Studies Brain CT 01/28/24 16:00 IMPRESSION: Normal unenhanced CT scan of the brain. Electronically Signed: Avinash Yancey MD at 17:23 EDT , Chest X-Ray 01/28/24 16:45 IMPRESSION: Limited by patient''s size. Possible mild atelectasis or infiltrate of the lung bases. Cardiomegaly. Electronically Signed: Avinash Yancey MD at 17:39 EDT , CT scan of the brain was obtained. There is no acute intracranial abnormality. This was interpreted by the radiologist and was also independently reviewed by myself. PA and lateral chest x-ray was obtained. There are 2 views. On my independent interpretation, lung akbar show questionable atelectasis at the lung bases. There is cardiomegaly. Bony thorax is normal. There is no acute process noted. Radiologist also interpreted the x-ray and agrees. EKG Initial EKG: Attestation: I personally reviewed and interpreted this EKG as follows: Interpretation: Sinus Rhythm (87), RBBB and Non-Specific ST Changes Comments: EKG was obtained. On my independent interpretation, it shows a normal sinus rhythm with a rate of 87. MN interval was normal at 154 ms. QRS interval was slightly prolonged at 134 ms. QTc was normal at 476 ms. Jewett was normal at 52. There is a right bundle branch block pattern noted. There are nonspecific ST-T wave changes noted in the lateral leads. This was unchanged compared to previous EKG. Prior EKG tracings: available for review Prior: Unchanged (03/15/2022) Management Discussion w/another healthcare provider: Hospitalist Treatment and Re-Evaluation :: Patient was sleeping on reevaluation. Case was discussed with the hospitalist. He will admit the patient for observation. Discharge Plan Triage Chief Complaint: Weakness ED Provider: Blayne Velázquez Dx/Rx/DC Orders Clinical Impression: Confusion, GENNARO (obstructive sleep apnea), Dehydration Prescriptions: No Action Probiotic 3 billion cell capsule 3,000 mmu cells PO DAILY Dulera 100-5 mcg/actuation HFA aerosol inhaler 2 puff inhalation BID Qty: 13 3RF albuterol sulfate 90 mcg/actuation HFA aerosol inhaler 2 puff inhalation Q6H PRN (Reason: SHORTNESS OF BREATH/WHEEZING) Qty: 8.5 2RF pantoprazole 40 MG tablet 40 mg PO DAILY trazodone 100 mg tablet 200 mg PO QHS rosuvastatin 40 mg Tablet 40 mg PO QHS potassium chloride 10 mEq tablet extended release 10 meq PO BID melatonin 10 mg Tablet 10 mg PO QHS oxybutynin chloride 10 mg tablet extended release 24hr 10 mg PO BID carvedilol 3.125 mg Tablet 3.125 mg PO BID Qty: 60 0RF ergocalciferol (vitamin D2) 1,250 mcg (50,000 unit) capsule 1,250 mcg PO MO temazepam 30 mg capsule 30 mg PO QHS oxycodone-acetaminophen [Percocet] 5-325 mg tablet See Rx Instructions .ROUTE .COMPLEX PRN (Reason: pain) 3 Days Qty: 12 0RF Rx Instructions: 1 TAB orally as needed ;1 TAB orally as needed q4-q6 hours alprazolam 0.5 mg tablet 0.5 mg PO TID PRN fluoxetine 40 mg capsule 40 mg PO DAILY Linzess 290 mcg capsule 290 mcg PO DAILY semaglutide 0.25 mg or 0.5 mg (2 mg/3 mL) pen injector 0.25 mg subcut QWEEK Rx Instructions: for 4 weeks sennosides [Aminata-guy] 8.6 mg tablet 8.6 mg PO BID PRN trospium 20 mg tablet 20 mg PO BID Primary Care Provider: Corin Mariscal Referrals: Corin Mariscal MD [Primary Care Provider] - Print Language: Arabic Disposition Disposition: Acute Care Hospital [facility]
--- NOTE | 2024-01-28 16:01 | EKG12_ITS ---
Test Reason : ALT LOC Blood Pressure : / mmHG Vent. Rate : 087 BPM Atrial Rate : 087 BPM P-R Int : 154 ms QRS Dur : 134 ms QT Int : 396 ms P-R-T Axes : 063 052 005 degrees QTc Int : 476 ms Normal sinus rhythm Right bundle branch block Possible Inferior infarct , age undetermined T wave abnormality, consider lateral ischemia Abnormal ECG Confirmed by Manjit Dyson ([id number]), visual effects editor UZMA HUSTON ([id number]) on 01/30/2024 8:21:08 AM Referred By: ES/TL Confirmed By:Manjit Dyson
[2024-01-28 16:15] LABS: Red Blood Cells-Urine 0 SEEN /hpf (0-5); Squamous Epithelial Cells - UA 0 SEEN /hpf (5-10); White Blood Cells 0 SEEN /hpf (0-5)
[2024-01-28 16:36] LABS: Absolute Lymphocyte Count 0.37 X10^3/uL (0.83-4.51); Absolute Neutrophil Count 4.6 X10^3/uL (2.0-7.7); Basophil# 0.01 X10^3/uL; Basophil% 0.2 % (0-1); Eosinophil# 0.01 X10^3/uL; Eosinophils% 0.2 % (0-5); Hematocrit 34.3 % (37-47); Hemoglobin 10.4 g/dL (12.0-15.0); Lymphocyte # 0.37 X10^3/ul (0.83-4.51); Lymphocyte % 6.9 % (19-41); Mean Corp Hgb Conc 30.3 g/dL (32-36); Mean Corpuscular Hgb 27.6 pg (27.0-32.0); Mean Platelet Vol. 9.9 fl (6.2-12.0); Monocyte# 0.38 X10^3/uL; Monocyte% 7.1 % (0-10); NRBC Flagged by Analyzer 0 % (0-5); Neutrophil # 4.59 X10^3/uL (2.7-7.7); Neutrophil % 85.4 % (47-70); POSITIVE DIFFERENTIAL YES; Platelet Count 135 K/mm3 (150-450); RBC Distribution Width CV 13.9 % (11.6-14.6); RBC Distribution Width SD 46.7 fl (35.1-43.9); Red Blood Count 3.77 M/mm3 (4.2-5.4); White Blood Count 5.4 K/mm3 (4.4-11.0)
[2024-01-28 16:38] LABS: International Normalized Ratio 0.9; Prothrombin Time (Protime)PT. 12.5 SECONDS (11.7-14.9)
[2024-01-28 16:39] LABS: Color, Urine Amber (Yellow); Glucose, Dipstick Normal (Normal); Ketone-Dipstick Negative (Negative); Leukocyte Esterase-Dipstick Negative /ul (Negative); Nitrite-Dipstick Negative (Negative); Occult Blood-Urine 10 /ul (Negative); Protein-Dipstick 100 mg/dl (Negative); Urine Clarity Clear (Clear); Urine Urobilinogen 8 mg/dl (Normal); Urine pH 6.5 (5.0 - 8.0)
[2024-01-28 16:44] LABS: Amphetamine Urine VISTA NEGATIVE (<1000 ng/mL); Barbiturate Urine VISTA NEGATIVE (< 200 ng/mL); Benzodiazepine Urine VISTA POSITIVE (< 200 ng/mL); Cocaine Urine VISTA NEGATIVE (< 300 ng/mL); Ecstacy Urine VISTA POSITIVE (< 500 ng/mL); Methadone Urine VISTA NEGATIVE (< 300 ng/mL); PCP Urine VISTA NEGATIVE (< 25 ng/mL); THC Urine VISTA NEGATIVE (< 50 ng/mL); Vista UDS pH Range 5
--- NOTE | 2024-01-28 16:45 | RAD_ITS ---
STUDY: X-RAY CHEST REASON FOR EXAM: Female, 63 years old. Altered mental status TECHNIQUE: Frontal and lateral views of the chest. COMPARISON: 07/16/2022. FINDINGS: Limited by patient''s size and under exposure. Low lung volumes. Possible atelectasis or infiltrate of the lung bases. No gross effusions. There is moderate cardiac enlargement. Normal mediastinum and myriam. Normal visualized pulmonary arteries. Normal visualized aortic arch and descending thoracic aorta. Normal visualized thoracic spine. Postsurgical changes of the thoracolumbar spine. Normal visualized ribs, clavicles, and shoulders. There is no demonstrated abnormality of the visualized soft tissue structures of the upper abdomen. RAD/Chest PA and Lateral IMPRESSION: Limited by patient''s size. Possible mild atelectasis or infiltrate of the lung bases. Cardiomegaly. Electronically Signed: Avinash Yancey MD at 17:39 EDT ,
[2024-01-28 16:48] LABS: ALB/GLOB Ratio 1.3 RATIO (0.9-2.4); AST(SGOT) 25 U/L (15-37); Alanine Aminotransfer ALT/SGPT 22 U/L (13-56); Albumin, Serum 3.4 g/dL (3.2-5.0); Alkaline Phosphatase 96 U/L (45-117); Anion Gap 7 (5-15); BUN 16 mg/dL (7-18); BUN/Creat Ratio 13.8 RATIO (10-20); Calcium,Total 9.2 mg/dL (8.5-10.1); Chloride 104 mmol/L (98-107); Creatinine, Serum 1.16 mg/dL (0.55-1.02); EST Glomerular Filtration Rate 50 mL/min (>60); Est Glom Filt Rate - Afr Amer 61 mL/min (>60); Estimated Creatinine Clearance 66.62 ml/min; Globulin 2.7 g/dL (2.2-4.2); Glucose 100 mg/dL (74-106); Potassium 3.5 mmol/L (3.5-5.1); Protein, Total 6.1 g/dL (6.4-8.2); Sodium Level 141 mmol/L (136-145); Troponin-I HS (w/2H Reflex) 7 pg/mL (3.0-54.0)
[2024-01-28 16:49] LABS: Urine Bilirubin Dipstick 1 mg/dL (Negative)
[2024-01-28 16:56] LABS: Bacteria 2+ /hpf (None Seen); Coarse Granular Cast 0-5 SEEN /lpf (0-5 /lpf); Hyaline Cast 0-5 SEEN /lpf (0-5); Mucous, Urine 1+ /hpf (<or=2+)
[2024-01-28 17:02] LABS: Lactic Acid 1.3 mmol/L (0.4-1.9)
[2024-01-28] MEDS: 0.9% Normal Saline (1000mL) 1,000 ML 1000 ML IV ×2 (17:16→18:18)
[2024-01-28 18:16] LABS: Reflex Troponin-HS? (from REC) Y
[2024-01-28 18:31] LABS: CPK Total, Creatine Kinase 287 U/L (26-192)
[2024-01-28 19:17] LABS: Troponin-I HS 6 pg/mL (3.0-54.0)
--- NOTE | 2024-01-28 20:09 | PCM.HP.STD ---
[facility] - General General Date of Admission: 01/28/24 Date of Service: 01/28/24 Chief Complaint: Fall with Weakness and Confusion. HPI Narrative ALFIE FELDER, is a 63 F with a past medical history of essential hypertension, hyperlipidemia, morbid obesity; with BMI of 40.5 this admission, GENNARO; on BiPAP, history of polysubstance abuse, history of EtOH abuse; with previous withdrawal, history of tobacco abuse x ~25 years (allegedly quit ~2007); with subsequent COPD, chronic hypoxic respiratory failure, asthma, history of bronchiectasis, history of RLD, history of idiopathic RV dilatation, history of RBBB, history of DVT, history of CKD; stage I, history of COVID-19, history of sepsis, depression, GERD, OA and listed allergy to PCN (hives) who presents to [facility] ER complaining of fall with weakness and confusion. Ms. Felder' family went to check on her earlier today and apparently found her laying on the floor. They were unsure how long she had been there with patient notably confused and slow to respond to questions so they activated EMS. She is a relatively poor informant with her complaining of back pain but she denies related fever, chills, nausea, vomiting, chest pain or SOB. Her family informed the ER physician they hoped her AMS was not due to her substance abuse. In the ER she was noted to have a UDS positive for both MDMA and Benzodiazepines likely combining to cause Toxic Encephalopathy with fall and confusion and she was then admitted to the general medical floor under observation status for ongoing care that is expected to be less than 2 midnights. [facility] Medical History Contusion of left hip Contusion of rib on right side Contusion of left shoulder Contusion of scalp Closed fracture of fibula, proximal, left Pyuria Substance abuse Kidney disease Former smoker BiPAP (biphasic positive airway pressure) dependence Sleep apnea On home oxygen therapy Hypertension Dementia Alcohol withdrawal Alcohol abuse Admitted to alcohol detoxification center Medical marijuana use Frequent falls DVT (deep venous thrombosis) Right ventricular systolic dysfunction Right bundle branch block (RBBB) Essential (primary) hypertension Sepsis Abdominal pain Migraine Chronic renal insufficiency, stage I Pancytopenia Respiratory tract infection due to COVID-19 virus Endocarditis Gastritis Restrictive lung disease Colitis Osteoarthritis Chronic renal failure Depression GENNARO (obstructive sleep apnea) Pneumonia Bronchitis Asthma COPD (chronic obstructive pulmonary disease) Morbid obesity HLD (hyperlipidemia) Bronchiectasis Idiopathic right ventricular dilation Thrombocytopenia Leukopenia Abnormal liver CT Anemia Anxiety Respiratory insufficiency Respiratory failure with hypoxia Colitis with rectal bleeding History of umbilical hernia History of diarrhea Arthritis Gastroesophageal reflux disease Home Medications ?Medication ?Instructions ?Recorded ?Last Taken ?Type pantoprazole 40 mg tablet,delayed 40 mg PO DAILY ACID REFLUX 12/09/18 07/10/23 History release rosuvastatin 40 mg tablet 40 mg PO QHS CHOLESTEROL 07/19/21 07/10/23 History melatonin 10 mg tablet 10 mg PO QHS SLEEP 07/16/22 07/10/23 History potassium chloride 10 mEq 10 meq PO BID SUPPLEMENT 07/16/22 07/10/23 History tablet,extended release oxybutynin chloride 10 mg 10 mg PO BID OVERCTVE BLADDER 07/18/22 07/10/23 History tablet,extended release 24 hr carvedilol 3.125 mg tablet 3.125 mg PO BID HEART #60 tabs 07/20/22 07/10/23 Rx albuterol sulfate 90 mcg/actuation 2 puff inhalation Q6H PRN 03/05/23 Unknown Rx aerosol inhaler SHORTNESS OF BREATH/WHEEZING #8.5 grams lactobacillus combination no.4 3 3,000 mmu cells PO DAILY GUT HEALTH 03/05/23 Unknown History billion cell capsule (Probiotic) mometasone-formoterol HFA 100 2 puff inhalation BID SHORTNESS OF 03/05/23 07/10/23 Rx mcg-5 mcg/actuation aerosol BREATH/WHEEZING #13 grams inhaler (Dulera) trazodone 100 mg tablet 200 mg PO QHS SLEEP 06/29/23 Unknown History ergocalciferol (vitamin D2) 1,250 1,250 mcg PO MO SUPPLEMENT 07/12/23 07/09/23 History mcg (50,000 unit) capsule temazepam 30 mg capsule 30 mg PO QHS INSOMNIA 07/12/23 07/10/23 History oxycodone-acetaminophen 5 mg-325 See Rx Instructions .Route 08/18/23 Unknown Rx mg tablet (Percocet) .COMPLEX PRN pain 3 days #12 tabs alprazolam 0.5 mg tablet 0.5 mg PO TID PRN anxiety 01/28/24 Unknown History fluoxetine 40 mg capsule 40 mg PO DAILY depression 01/28/24 Unknown History linaclotide 290 mcg capsule 290 mcg PO DAILY bowel function 01/28/24 Unknown History (Linzess) semaglutide 0.25 mg or 0.5 mg (2 0.25 mg subcut QWEEK 01/28/24 Unknown History mg/3 mL) subcutaneous pen injector sennosides 8.6 mg tablet (Aminata-guy) 8.6 mg PO BID PRN see 01/28/24 Unknown History trospium 20 mg tablet 20 mg PO BID see 01/28/24 Unknown History Allergy/AdvReac Type Severity Reaction Status Date / Time house dust Allergy ITCHY EYES Verified 08/18/23 19:19 Penicillins Allergy Hives Verified 08/18/23 19:19 Seasonal Allergies: Uncoded Allergy ITCHY EYES Verified 08/18/23 19:19 Family History Father Colon cancer Mother Cancer pancreatic Surgical History History of tubal ligation History of appendectomy History of hysterectomy History of cholecystectomy Social History household members: none Smoking Status: Former smoker Tobacco: How many years used: 25 how long ago did patient quit smokin, 0.5ppd second hand exposure: Yes alcohol intake: never substance use type: does not use ROS ROS Narrative Review of Systems was not possible due to patient's continued toxic encephalopathy with BiPAP in place. Vital Signs Vital Signs Vital Signs: 01/28/24 15:07 01/28/24 16:07 01/28/24 16:16 Temperature 97.7 F L Temperature Source Oral Pulse Rate 82 Respiratory Rate 24 H Respiratory Pattern Normal Blood Pressure 132/73 H Blood Pressure Mean 92 Pulse Ox 100 Oxygen Delivery Method Nasal Cannula Room Air Oxygen Flow Rate (L/min) 3 01/28/24 17:18 01/28/24 19:00 Temperature Temperature Source Pulse Rate 79 80 Respiratory Rate 17 19 H Respiratory Pattern Blood Pressure 141/86 H 123/62 H Blood Pressure Mean 104 82 Pulse Ox 99 99 Oxygen Delivery Method Room Air Room Air Oxygen Flow Rate (L/min) Weight Weight: 258 lb 13.163 oz Body Mass Index (BMI) 40.5 Physical Exam Const alert, oriented x3 and no apparent distress Constitutional Narrative: Morbidly obese and mildly confused. General Appearance: cooperative Orientation / Consciousness: confused HEENT normocephalic, head/scalp atraumatic, hearing grossly normal bilaterally and moist oral mucous membranes Eyes PERRL and EOMs intact bilaterally Neck no lymphadenopathy and supple Resp normal respiratory effort, no retractions, no use of accessory muscles and clear to auscultation bilaterally Resp Narrative: Diminished breath sounds throughout. Cardio regular rate and regular rhythm GI normal to inspection, nondistended, normoactive bowel sounds, soft to palpation, non-tender and non-distended GI Narrative: Morbidly obese. Extremity normal to inspection, full ROM and no clubbing, cyanosis or edema Skin Skin Narrative: Patient has no evidence of rash, abscess or jaundice. Neuro CN's II-XII intact bilaterally, moves all extremities and no focal motor deficits Sensorium / Orientation: awake, alert, oriented to person and oriented to place Speech: speech normal Psych affect normal Results Medical Records Data Attestation: I reviewed the patient's medical records Lab / Micro Data Attestation: I reviewed the patient's lab results. 01/28/24 15:15 01/28/24 15:15 Labs: Laboratory Results - last 24 hr 01/28/24 15:15: WBC 5.4, RBC 3.77 L, Hgb 10.4 L, Hct 34.3 L, MCV 91.0, MCH 27.6, MCHC 30.3 L, RDW Std Deviation 46.7 H, RDW Coeff of Jaun 13.9, Plt Count 135 L, MPV 9.9, Immature Gran % (Auto) 0.200, Neut % (Auto) 85.4 H, Lymph % (Auto) 6.9 L, [place] % (Auto) 7.1, Eos % (Auto) 0.2, Baso % (Auto) 0.2, Absolute Neuts (auto) 4.6, Absolute Lymphs (auto) 0.37 L, Nucleated RBC % 0, PT 12.5, INR 0.9, APTT 25.0, Sodium 141, Potassium 3.5, Chloride 104, Carbon Dioxide 30.0, Anion Gap 7, BUN 16, Creatinine 1.16 H, Estim Creat Clear Calc 66.62, Est GFR (MDRD) Af Amer 61, Est GFR (MDRD) Non-Af 50 L, BUN/Creatinine Ratio 13.8, Glucose 100, Calcium 9.2, Total Bilirubin 0.90, AST 25, ALT 22, Alkaline Phosphatase 96, Total Creatine Kinase 287 H, Troponin I High Sens 7, Total Protein 6.1 L, Albumin 3.4, Globulin 2.7, Albumin/Globulin Ratio 1.3 01/28/24 16:00: Urine Color Pooja, Urine Clarity Clear, Urine pH 6.5, Ur Specific [place] 1.010, Urine Protein 100 H, Urine Glucose (UA) Normal, Urine Ketones Negative, Urine Occult Blood 10 H, Urine Nitrite Negative, Urine Bilirubin 1 H, Urine Urobilinogen 8 H, Ur Leukocyte Esterase Negative, Urine RBC 0 SEEN, Urine WBC 0 SEEN, Ur Squamous Epith Cells 0 SEEN, Urine Bacteria 2+, Hyaline Casts 0-5 SEEN, Coarse Granular Casts 0-5 SEEN, Urine Mucus 1+, Urine Opiates Screen NEGATIVE, Urine Methadone Screen NEGATIVE, Ur Barbiturates Screen NEGATIVE, Ur Phencyclidine Scrn NEGATIVE, Ur Amphetamines Screen NEGATIVE, MDMA (Ecstasy) Screen POSITIVE H, U Benzodiazepines Scrn POSITIVE H, Urine Cocaine Screen NEGATIVE, U Cannabinoids Screen NEGATIVE, Ur Drug Screen Comment 01/28/24 16:18: Lactic Acid 1.3 01/28/24 18:28: Troponin I High Sens 6 Micro: Microbiology 01/28/24 16:18 Mucosa - Nose SARS-CoV-2, Influenza & RSV (PCR) - Final ABG Data ABG results: ABG 01/28/24 15:42 Specimen Type ART Sample Site L Radial pH 7.33 L Bicarbonate Actual 32.7 H Total CO2 35 Base Excess 7 H O2 Saturation 95 O2 % 3.0 ABG pCO2 61.5 H ABG pO2 83 Arian Test Positive O2 Delivery Device Cannula Vent Mode Not entered Imaging Radiology Impression Brain CT 01/28/24 16:00 IMPRESSION: Normal unenhanced CT scan of the brain. Electronically Signed: Avinash Yancey MD at 17:23 EDT , Chest X-Ray 01/28/24 16:45 IMPRESSION: Limited by patient''s size. Possible mild atelectasis or infiltrate of the lung bases. Cardiomegaly. Electronically Signed: Avinash Yancey MD at 17:39 EDT , Assessment & Plan Assessment/Plan (1) Toxic encephalopathy: QUALIFIERS: Toxic encephalopathy cause: unspecified toxin Qualified Code(s): G92.9 - Unspecified toxic encephalopathy (2) Adverse drug reaction: QUALIFIERS: Encounter type: initial encounter Qualified Code(s): T50.905A - Adverse effect of unspecified drugs, medicaments and biological substances, initial encounter (3) Suicidal ideation: (4) Respiratory failure with hypoxia: QUALIFIERS: Chronicity: acute Qualified Code(s): J96.01 - Acute respiratory failure with hypoxia (5) Polysubstance abuse: (6) Alcohol abuse: (7) GENNARO (obstructive sleep apnea): PLAN: Plan 1. Toxic Encephalopathy with fall and confusion - Admit to general medical floor under observation status. Continue supportive care and monitor for improvement. 2. UDS positive for both MDMA and Benzodiazepines likely combining to cause #1 in the setting of a known history of polysubstance abuse - MDMA use will be discouraged when she micah up and her Temazepam will be held until her sensorium clears. 3. Morbid obesity; with BMI of 40.5 this admission plus GENNARO; on BiPAP complicating #1 & #2 - Weight loss will be recommended. Continue BiPAP as previous. 4. History of EtOH abuse; with previous withdrawal - Noted. Check MARIA LUISA this admission. 5. History of tobacco abuse x ~25 years (allegedly quit ~2007); with subsequent COPD and Chronic Hypoxic Respiratory Failure - Stable with no evidence of acute flare. 6. Essential hypertension - Continue home regimen plus give Hydralazine IV prn for systolic blood pressure > 160 mmHg. 7. Hyperlipidemia - Resume statin. 8. Asthma - Stable without sign of acute flare at this time. Continue prn nebulizers. 9. History of bronchiectasis - Noted. 10. History of RLD - Stable. 11. History of idiopathic RV dilatation - Apparently stable. Check echocardiogram to reevaluate. 12. History of RBBB - Noted. 13. History of DVT - Noted. 14. History of CKD; stage I - Stable. 15. History of COVID-19 - Noted. 16. History of sepsis - Noted. 17. Depression - Continue home regimen. 18. GERD - Resume PPI as previous. 19. OA - Stable. Give Tylenol prn. 20. Listed allergy to PCN (hives) - Stable. 21. DVT prophylaxis - Lovenox 40 mg sq BID. Total time: Approximately 70 minutes. Update: Patient's family member searched through her belongings and allegedly found notes stating the family, would be better off without her. Therefore, patient was placed on suicide precautions with formal psychiatric evaluation pending in the AM with sitter also obtained to minimize risk of potentially self destructive behavior. Charges/Coding Visit Charges OBSV E&M: 64947 Observ/hosp same date L2
--- NOTE | 2024-01-28 20:59 | ED.RN ---
patients sister updated. RN states patient will be admitted to hospital in room 322. RN updated sister on test results. no further questions
[2024-01-28] MEDS: 0.9% Normal Saline (1000mL) 1,000 ML 70 ML IV (21:40)
[2024-01-28 23:02] LABS: Alcohol, Blood (Medical)-Serum < 3.0 mg/dL
[2024-01-28] MEDS: Enoxaparin 40 MG/0.4 ML Syringe SC (23:52)
[2024-01-29] VITALS (14 sets, daily range): BP systolic 100–142; BP diastolic 76–94; PULSE 75–94; RESP 13–24; TEMP 35.9–36.9; O2SAT 94–100; BMI 40.7
--- NOTE | 2024-01-29 02:59 | NURSING ---
pt sister called in and said pills was all over the floor. She found notes to each family member telling them they would be better off without her. Sister said she did try to kill herself. Dr johnson notified. Pt placed in suicidal precautions. Aisha sitting with pt.
--- NOTE | 2024-01-29 03:33 | NURSING ---
Crisis team notified and we will have to re notify them once she is medically cleared.
[2024-01-29] MEDS: Budesonide Respules 0.5 MG/2 ML AMPUL.NEB. INHALATION ×2 (07:07→20:20)
[2024-01-29 07:35] LABS: Blood Gas Specimen Type VEN; Comment 16 8; O2 Delivery Device BiPAP; RR 14; SITE Not entered; VBG BASE EXCESS 1 mmol/L (-1.0-3.5); VBG Bicarbonate 27 mmol/L (22-26); VBG PO2 70 mmHg (25-40); VBG SO2 92 % (50-70); VBG TCO2 28 mmol/L (23-33); VBG pH 7.33 (7.32-7.42)
[2024-01-29 08:03] LABS: Absolute Neutrophil Count 2.8 X10^3/uL (2.0-7.7); Basophil# 0.02 X10^3/uL; Basophil% 0.5 % (0-1); Eosinophil# 0.06 X10^3/uL; Eosinophils% 1.6 % (0-5); Hematocrit 33.1 % (37-47); Hemoglobin 10.1 g/dL (12.0-15.0); Lymphocyte % 18.4 % (19-41); Mean Corp Hgb Conc 30.5 g/dL (32-36); Mean Corpuscular Hgb 28.3 pg (27.0-32.0); Mean Corpuscular Volume 92.7 fL (81-99); Mean Platelet Vol. 9.6 fl (6.2-12.0); Monocyte% 5.3 % (0-10); NRBC Flagged by Analyzer 0 % (0-5); Neutrophil # 2.81 X10^3/uL (2.7-7.7); Neutrophil % 73.9 % (47-70); Platelet Count 133 K/mm3 (150-450); RBC Distribution Width CV 14.2 % (11.6-14.6); RBC Distribution Width SD 48.5 fl (35.1-43.9); Red Blood Count 3.57 M/mm3 (4.2-5.4); White Blood Count 3.8 K/mm3 (4.4-11.0)
[2024-01-29] MEDS: Enoxaparin 40 MG/0.4 ML Syringe SC ×2 (08:48→22:22)
[2024-01-29] MEDS: Pantoprazole Sodium 40 MG Tablet PO (08:48)
[2024-01-29] MEDS: Carvedilol 3.125 MG TABLET PO ×2 (08:48→22:22)
[2024-01-29] MEDS: Fluoxetine HCl 40 MG CAPSULE PO (08:48)
[2024-01-29] MEDS: Tolterodine Tartrate 2 MG CAP.SA PO (08:48)
[2024-01-29] MEDS: Acetaminophen 325 MG Tablet 650 MG PO ×2 (08:49→20:18)
--- NOTE | 2024-01-29 09:45 | CASEMGMT ---
Addendum entered by Mecca Garces 01/29/24 13:20: Social Work- SW spoke with crop or grain farmworker who confirms that the plan is to seek placement in psychiatric hospital, however, d/t pt complex medical hx, it will be challenging. table worker will continue to communicate updates. BERNIE Mckeon Original Note: Social Work- [place] faxed packet of documentation to [facility] Crisis and followed up with a phone call to request an eval. Trish [facility] reports that a worker will be out for an eval as soon as possible. Charge nurse and medical affairs manager updated. BERNIE Mckeon
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
[2024-01-29 12:04] LABS: ALB/GLOB Ratio 1.1 RATIO (0.9-2.4); AST(SGOT) 20 U/L (15-37); Alanine Aminotransfer ALT/SGPT 23 U/L (13-56); Albumin, Serum 2.9 g/dL (3.2-5.0); Alkaline Phosphatase 85 U/L (45-117); Anion Gap 7 (5-15); BUN 14 mg/dL (7-18); BUN/Creat Ratio 15.9 RATIO (10-20); Calcium,Total 8.7 mg/dL (8.5-10.1); Chloride 109 mmol/L (98-107); Creatinine, Serum 0.88 mg/dL (0.55-1.02); EST Glomerular Filtration Rate 69 mL/min (>60); Est Glom Filt Rate - Afr Amer 84 mL/min (>60); Estimated Creatinine Clearance 87.94 ml/min; Globulin 2.6 g/dL (2.2-4.2); Glucose 82 mg/dL (74-106); Magnesium 2.1 mg/dL (1.6-2.6); Phosphorus 2.6 mg/dL (2.5-4.9); Potassium 3.6 mmol/L (3.5-5.1); Protein, Total 5.5 g/dL (6.4-8.2); Sodium Level 143 mmol/L (136-145); Thyroid Stim Hormone (TSH) 0.289 uIU/mL (0.358-3.740)
--- NOTE | 2024-01-29 15:43 | PN_ITS ---
Subjective Subjective Patient seen and examined. She was admitted with complaint of mechanical falls as well as weakness and confusion. Her family went to check on her and she was found lying on the floor. She was confused and slow to respond. She does have a history of substance abuse. Urine tox was positive for MDMA and benzodiazepines. She has been managed for toxic encephalopathy likely due to substance use disorder. Patient is very tearful and says she does not want to live anymore. She apparently has access to guns and says she was going to leave and shoot herself. Mental health crisis consulted. Objective Data Objective Data Vital Signs: Vital Signs Temp Pulse Resp BP Pulse Ox O2 Del Method O2 Flow Rate 98.5 F 86 16 107/76 97 Nasal Cannula 2 01/29/24 15:05 01/29/24 15:05 01/29/24 15:05 01/29/24 15:05 01/29/24 15:05 01/29/24 15:05 01/29/24 15:05 FiO2 28 01/29/24 07:07 Oxygen Flow Rate (L/min) 2 Oxygen Delivery Method Nasal Cannula Weight: 259 lb 7.745 oz Body Mass Index (BMI) 40.7 Intake & Output: Intake and Output for Last 24 Hours 01/27/24 01/28/24 01/29/24 23:59 23:59 23:59 Intake Total 1999 0 / 0 Output Total 0 / 0 Balance 1999 0 / 0 Lab / Micro Data 01/29/24 07:36 01/29/24 07:36 Labs: Laboratory Results - last 24 hr 01/28/24 15:15: WBC 5.4, RBC 3.77 L, Hgb 10.4 L, Hct 34.3 L, MCV 91.0, MCH 27.6, MCHC 30.3 L, RDW Std Deviation 46.7 H, RDW Coeff of Jaun 13.9, Plt Count 135 L, MPV 9.9, Immature Gran % (Auto) 0.200, Neut % (Auto) 85.4 H, Lymph % (Auto) 6.9 L, [place] % (Auto) 7.1, Eos % (Auto) 0.2, Baso % (Auto) 0.2, Absolute Neuts (auto) 4.6, Absolute Lymphs (auto) 0.37 L, Nucleated RBC % 0, PT 12.5, INR 0.9, APTT 25.0, Sodium 141, Potassium 3.5, Chloride 104, Carbon Dioxide 30.0, Anion Gap 7, BUN 16, Creatinine 1.16 H, Estim Creat Clear Calc 66.62, Est GFR (MDRD) Af Amer 61, Est GFR (MDRD) Non-Af 50 L, BUN/Creatinine Ratio 13.8, Glucose 100, Calcium 9.2, Total Bilirubin 0.90, AST 25, ALT 22, Alkaline Phosphatase 96, Total Creatine Kinase 287 H, Troponin I High Sens 7, Total Protein 6.1 L, Albumin 3.4, Globulin 2.7, Albumin/Globulin Ratio 1.3 01/28/24 16:00: Urine Color Pooja, Urine Clarity Clear, Urine pH 6.5, Ur Specific [place] 1.010, Urine Protein 100 H, Urine Glucose (UA) Normal, Urine Ketones Negative, Urine Occult Blood 10 H, Urine Nitrite Negative, Urine Bilirubin 1 H, Urine Urobilinogen 8 H, Ur Leukocyte Esterase Negative, Urine RBC 0 SEEN, Urine WBC 0 SEEN, Ur Squamous Epith Cells 0 SEEN, Urine Bacteria 2+, Hyaline Casts 0-5 SEEN, Coarse Granular Casts 0-5 SEEN, Urine Mucus 1+, Urine Opiates Screen NEGATIVE, Urine Methadone Screen NEGATIVE, Ur Barbiturates Screen NEGATIVE, Ur Phencyclidine Scrn NEGATIVE, Ur Amphetamines Screen NEGATIVE, MDMA (Ecstasy) Screen POSITIVE H, U Benzodiazepines Scrn POSITIVE H, Urine Cocaine Screen NEGATIVE, U Cannabinoids Screen NEGATIVE, Ur Drug Screen Comment 01/28/24 16:18: Lactic Acid 1.3 01/28/24 18:28: Troponin I High Sens 6 01/28/24 22:25: Ethyl Alcohol < 3.0 01/29/24 07:36: WBC 3.8 L, RBC 3.57 L, Hgb 10.1 L, Hct 33.1 L, MCV 92.7, MCH 28.3, MCHC 30.5 L, RDW Std Deviation 48.5 H, RDW Coeff of Jaun 14.2, Plt Count 133 L, MPV 9.6, Immature Gran % (Auto) 0.300, Neut % (Auto) 73.9 H, Lymph % (Auto) 18.4 L, [place] % (Auto) 5.3, Eos % (Auto) 1.6, Baso % (Auto) 0.5, Absolute Neuts (auto) 2.8, Absolute Lymphs (auto) 0.70 L, Nucleated RBC % 0, Sodium 143, Potassium 3.6, Chloride 109 H, Carbon Dioxide 27.0, Anion Gap 7, BUN 14, Creatinine 0.88, Estim Creat Clear Calc 87.94, Est GFR (MDRD) Af Amer 84, Est GFR (MDRD) Non-Af 69, BUN/Creatinine Ratio 15.9, Glucose 82, Calcium 8.7, Phosphorus 2.6, Magnesium 2.1, Total Bilirubin 0.90, AST 20, ALT 23, Alkaline Phosphatase 85, Total Protein 5.5 L, Albumin 2.9 L, Globulin 2.6, Albumin/Globulin Ratio 1.1, TSH 0.289 L Micro: Microbiology 01/28/24 16:18 Mucosa - Nose SARS-CoV-2, Influenza & RSV (PCR) - Final ABG Data ABG results: ABG 01/28/24 01/29/24 15:42 07:30 Specimen Type ART MARGUERITE Sample Site L Radial Not entered pH 7.33 L Bicarbonate Actual 32.7 H Total CO2 35 Base Excess 7 H O2 Saturation 95 O2 % 3.0 28.0 ABG pCO2 61.5 H ABG pO2 83 Arian Test Positive VBG pH 7.33 VBG pO2 70 H VBG HCO3 27 H VBG Total CO2 28 VBG O2 Sat (Calc) 92 H VBG Base Excess 1 POC Mix VBG pCO2 Pt Tmp 51.0 Respiration Rate 14 O2 Delivery Device Cannula BiPAP Vent Mode Not entered Clinical Comments 16 8 Radiography Diagnostic Testing: Radiology Impression Brain CT 01/28/24 16:00 IMPRESSION: Normal unenhanced CT scan of the brain. Electronically Signed: Avinash Yancey MD at 17:23 EDT , Chest X-Ray 01/28/24 16:45 IMPRESSION: Limited by patient''s size. Possible mild atelectasis or infiltrate of the lung bases. Cardiomegaly. Electronically Signed: Avinash Yancey MD at 17:39 EDT , Physical Exam Const alert and oriented x3 Constitutional Narrative: agitated, tearful General Appearance: cooperative HEENT normocephalic and head/scalp atraumatic Mouth: dry mucous membranes Eyes PERRL and EOMs intact bilaterally Neck no lymphadenopathy, supple and no JVD Lymph Lymphatic: no lymphadenopathy noted Resp Resp Narrative: diminished breath sounds bibasally, no wheezes or crackles. Cardio regular rate, regular rhythm, S1 normal heart sound, S2 normal heart sound and no murmurs GI normal to inspection, nondistended, normoactive bowel sounds, soft to palpation, non-tender and non-distended Extremity normal capillary refill, no clubbing, cyanosis or edema and no calf tenderness General Extremity: no tenderness to palpation of joints or extremities Skin General Skin Exam: no breakdown Neuro CN's II-XII intact bilaterally, no focal motor deficits and no sensory deficits noted Psych Psych Narrative: agitated, tearful Assessment & Plan Assessment/Plan (1) Suicidal ideation: (2) Polysubstance abuse: (3) Toxic encephalopathy: QUALIFIERS: Toxic encephalopathy cause: unspecified toxin Q ualified Code(s): G92.9 - Unspecified toxic encephalopathy (4) Adverse drug reaction: QUALIFIERS: Encounter type: initial encounter Qualified Code(s): T50.905A - Adverse effect of unspecified drugs, medicaments and biological substances, initial encounter PLAN: Plan #Acute toxic encephalopathy due to polysubstance use disorder * urine tox was positive for MDMA and benzodiazepines. * * #Suicidal ideation: * told the crisis team that she had access to guns and was going to shoot herself. Mental health crises on board. * #History of alcohol use disorder * Currently not in withdrawal. Stable. #Chronic respiratory failure due to COPD: With 3 L of oxygen at home and currently on 3 L. Will monitor. #Benign essential hypertension: On carvedilol #Hyperlipidemia: On statin #History of asthma: Stable. Not in exacerbation. Breathing treatments bronchodilators. #Pancytopenia: Platelets are low at 133 and hemoglobin is around 10 with WBC also being low. This is chronic. Likely due to alcohol use disorder. Will monitor. #Depression: Currently she is having suicidal ideations. Denies homicidal ideations. Mental with crisis team on board. On fluoxetine #GERD: PPI #History of osteoarthritis: Stable DVT prophylaxis: Lovenox Disposition: Will benefit from placement in a psychiatric facility. Mental with crisis team on board. Patient pink slipped. Charges/Coding Visit Charges Inpatient E&M: 74317 Subs Hosp L2
[2024-01-29] MEDS: Atorvastatin Calcium 80 MG Tablet PO (22:22)
[2024-01-29] MEDS: MELATONIN 10 MG TABLET PO (22:22)
[2024-01-30] VITALS (7 sets, daily range): BP systolic 96–106; BP diastolic 46–71; PULSE 80–89; RESP 14–20; TEMP 36.5–37.2; O2SAT 96–100
[2024-01-30] MEDS: Budesonide Respules 0.5 MG/2 ML AMPUL.NEB. INHALATION (07:35)
[2024-01-30] MEDS: Enoxaparin 40 MG/0.4 ML Syringe SC (08:26)
[2024-01-30] MEDS: Pantoprazole Sodium 40 MG Tablet PO (08:26)
[2024-01-30] MEDS: Tolterodine Tartrate 2 MG CAP.SA PO (08:27)
[2024-01-30] MEDS: Fluoxetine HCl 40 MG CAPSULE PO (08:27)
[2024-01-30] MEDS: Carvedilol 3.125 MG TABLET PO (08:46)
--- NOTE | 2024-01-30 09:15 | CASEMGMT ---
Social Work- Pt [facility] accepted by [facility]. EKG and documentation was faxed to [facility]; awaiting family to bring in bi-pap prior to transport being arranged. SW remains available to follow. BERNIE Mckeon
--- NOTE | 2024-01-30 10:15 | PCM.PN.HOSP ---
Reason for Visit Reason for Visit: Diagnoses Alcohol abuse, uncomplicated (01/28/24) Other psychoactive substance abuse, uncomplicated (01/28/24) Obstructive sleep apnea (adult) (pediatric) (01/28/24) Unspecified toxic encephalopathy (01/28/24) Acute respiratory failure with hypoxia (01/28/24) Suicidal ideations (01/28/24) Adverse effect of unspecified drugs, medicaments and biological substances, initial encounter (01/28/24) Subjective Subjective Stating that she does not want to go to the psychiatric facility Objective Data Objective Data Vital Signs: Vital Signs Temp Pulse Resp BP Pulse Ox O2 Del Method O2 Flow Rate 37.2 C 82 18 96/46 L 98 Nasal Cannula 2 01/30/24 08:10 01/30/24 08:10 01/30/24 08:10 01/30/24 08:10 01/30/24 08:10 01/30/24 08:37 01/30/24 08:37 FiO2 28 01/30/24 07:15 Oxygen Flow Rate (L/min) 2 Oxygen Delivery Method Nasal Cannula Weight: 117.7 kg Body Mass Index (BMI) 40.7 Intake & Output: Intake and Output for Last 24 Hours 01/28/24 01/29/24 01/30/24 23:59 23:59 23:59 Intake Total 1999 0 / 0 200 / 200 Output Total 0 / 0 400 / 400 Balance 1999 0 / 0 -200 / -200 Lab / Micro Data 01/29/24 07:36 01/29/24 07:36 Labs: Laboratory Results - last 24 hr 01/29/24 07:36: Sodium 143, Potassium 3.6, Chloride 109 H, Carbon Dioxide 27.0, Anion Gap 7, BUN 14, Creatinine 0.88, Estim Creat Clear Calc 87.94, Est GFR (MDRD) Af Amer 84, Est GFR (MDRD) Non-Af 69, BUN/Creatinine Ratio 15.9, Glucose 82, Calcium 8.7, Phosphorus 2.6, Magnesium 2.1, Total Bilirubin 0.90, AST 20, ALT 23, Alkaline Phosphatase 85, Total Protein 5.5 L, Albumin 2.9 L, Globulin 2.6, Albumin/Globulin Ratio 1.1, TSH 0.289 L Micro: Microbiology 01/28/24 16:00 Urine, Catheterized Urine Culture - Preliminary Culture exhibits no growth. 01/28/24 16:18 Mucosa - Nose SARS-CoV-2, Influenza & RSV (PCR) - Final Physical Exam Const alert and no apparent distress Constitutional Narrative: Slow to respond at times but answers are appropriate. When asked directly about why she needs to go to a psychiatric unit, she tells me you know. HEENT head/scalp atraumatic and moist oral mucous membranes Resp normal respiratory effort and no retractions Assessment & Plan Assessment/Plan (1) Suicidal ideation: (2) Polysubstance abuse: (3) Toxic encephalopathy: QUALIFIERS: Toxic encephalopathy cause: unspecified toxin Qualified Code(s): G92.9 - Unspecified toxic encephalopathy (4) Adverse drug reaction: QUALIFIERS: Encounter type: initial encounter Qualified Code(s): T50.905A - Adverse effect of unspecified drugs, medicaments and biological substances, initial encounter PLAN: Plan Acute toxic encephalopathy due to polysubstance use disorder urine tox was positive for MDMA and benzodiazepines. Supportive management Suicidal ideation: told the crisis team that she had access to guns and was going to shoot herself. Mental health crises on board. Patient go to psychiatric unit. [place] slip has been formed. Patient to be discharged today. COPD/chronic respiratory failure/GENNARO: Family bring in CPAP. Patient home O2 dependent. DVT prophylaxis: Lovenox
--- NOTE | 2024-01-30 11:14 | DS.PCM_ITS ---
Providers Date of Admission: 01/28/24 Primary Care Physician: Corin Mariscal MD Reason For Visit: TOXIC ENCEPHALOPATHY WITH FALL AND CONFUSION Diagnosis Discharge Diagnosis (1) Suicidal ideation: Status: Acute Code(s): R45.851 - Suicidal ideations (2) Polysubstance abuse: Status: Acute Code(s): F19.10 - Other psychoactive substance abuse, uncomplicated (3) Toxic encephalopathy: Status: Acute Code(s): G92.9 - Unspecified toxic encephalopathy Qualifiers: Toxic encephalopathy cause: unspecified toxin Qualified Code(s): G92.9 - Unspecified toxic encephalopathy (4) Adverse drug reaction: Status: Acute Code(s): T50.905A - Adverse effect of unspecified drugs, medicaments and biological substances, initial encounter Qualifiers: Encounter type: initial encounter Qualified Code(s): T50.905A - Adverse effect of unspecified drugs, medicaments and biological substances, initial encounter Plan Acute toxic encephalopathy due to polysubstance use disorder * urine tox was positive for MDMA and benzodiazepines. * Supportive management Suicidal ideation: * told the crisis team that she had access to guns and was going to shoot herself. Mental health crises on board. * Patient go to psychiatric unit. [place] slip has been formed. Patient to be discharged today. COPD/chronic respiratory failure/GENNARO: Family bring in CPAP. Patient home O2 dependent. DVT prophylaxis: Lovenox Medications at Discharge Home Medications pantoprazole 40 mg tablet,delayed release 40 mg PO DAILY ACID REFLUX 12/09/18 rosuvastatin 40 mg tablet 40 mg PO QHS CHOLESTEROL 07/19/21 melatonin 10 mg tablet 10 mg PO QHS SLEEP 07/16/22 potassium chloride 10 mEq tablet,extended release 10 meq PO BID SUPPLEMENT 07/16/22 oxybutynin chloride 10 mg tablet,extended release 24 hr 10 mg PO BID OVERCTVE BLADDER 07/18/22 carvedilol 3.125 mg tablet 3.125 mg PO BID HEART #60 tabs 07/20/22 albuterol sulfate 90 mcg/actuation aerosol inhaler 2 puff inhalation Q6H PRN SHORTNESS OF BREATH/WHEEZING #8.5 grams 03/05/23 lactobacillus combination no.4 3 billion cell capsule (Probiotic) 3,000 mmu cells PO DAILY GUT HEALTH 03/05/23 mometasone-formoterol HFA 100 mcg-5 mcg/actuation aerosol inhaler (Dulera) 2 puff inhalation BID SHORTNESS OF BREATH/WHEEZING #13 grams 03/05/23 trazodone 100 mg tablet 200 mg PO QHS SLEEP 06/29/23 ergocalciferol (vitamin D2) 1,250 mcg (50,000 unit) capsule 1,250 mcg PO MO SUPPLEMENT 07/12/23 temazepam 30 mg capsule 30 mg PO QHS INSOMNIA 07/12/23 oxycodone-acetaminophen 5 mg-325 mg tablet (Percocet) See Rx Instructions .Route .COMPLEX PRN pain 3 days #12 tabs 08/18/23 alprazolam 0.5 mg tablet 0.5 mg PO TID PRN anxiety 01/28/24 fluoxetine 40 mg capsule 40 mg PO DAILY depression 01/28/24 linaclotide 290 mcg capsule (Linzess) 290 mcg PO DAILY bowel function 01/28/24 semaglutide 0.25 mg or 0.5 mg (2 mg/3 mL) subcutaneous pen injector 0.25 mg subcut QWEEK 01/28/24 sennosides 8.6 mg tablet (Aminata-guy) 8.6 mg PO BID PRN see 01/28/24 trospium 20 mg tablet 20 mg PO BID see 01/28/24 Weight / BMI Weight Weight: 117.7 kg Body Mass Index (BMI) 40.7 ABG / Lab / Microbiology Data 01/29/24 07:36 01/29/24 07:36 Laboratory: Laboratory Results - last 24 hr 01/29/24 07:36: Sodium 143, Potassium 3.6, Chloride 109 H, Carbon Dioxide 27.0, Anion Gap 7, BUN 14, Creatinine 0.88, Estim Creat Clear Calc 87.94, Est GFR (MDRD) Af Amer 84, Est GFR (MDRD) Non-Af 69, BUN/Creatinine Ratio 15.9, Glucose 82, Calcium 8.7, Phosphorus 2.6, Magnesium 2.1, Total Bilirubin 0.90, AST 20, ALT 23, Alkaline Phosphatase 85, Total Protein 5.5 L, Albumin 2.9 L, Globulin 2.6, Albumin/Globulin Ratio 1.1, TSH 0.289 L Microbiology: Microbiology 01/28/24 16:00 Urine, Catheterized Urine Culture - Preliminary Culture exhibits no growth. 01/28/24 16:18 Mucosa - Nose SARS-CoV-2, Influenza & RSV (PCR) - Final D/C Instructions Discharge Diet: No restrictions Meaningful Use Info Meaningful Use Meaningful Use Diagnoses (Choose all that apply): None applicable Ischemic Stroke Statin Dosing Therapy Reference: STATIN DOSE THERAPY REFERENCE: * Patients > 75 years receive moderate or high dose statin therapy. * Patients 75 years or YOUNGER should receive HIGH intensity statin dose unless contraindicated. You will be required to document reason for non-treatment if statin daily dose does not meet guidelines. HIGH DOSE STATIN THERAPY DAILY Atorvastatin > than or = to 40 mg Rosuvastatin > than or = to 20 mg Amlodipine + Atorvastatin > than or = to 2.5/40 mg Ezetimibe + Simvastatin 10/80 mg Simvastatin 80mg Discharge Plan Admission Admit Date/Time: 01/28/24 20:26 Primary Reason for Your Visit: Suicide ideation Attending Provider: Blayne Santana Primary Care Provider: Corin Mariscal Consulting Providers: Pedro Ervin; Trice Contreras Discharge Orders/Prescriptions Prescriptions: Continued Probiotic 3 billion cell capsule 3,000 mmu cells PO DAILY Dulera 100-5 mcg/actuation HFA aerosol inhaler 2 puff inhalation BID Qty: 13 3RF albuterol sulfate 90 mcg/actuation HFA aerosol inhaler 2 puff inhalation Q6H PRN (Reason: SHORTNESS OF BREATH/WHEEZING) Qty: 8.5 2RF pantoprazole 40 MG tablet 40 mg PO DAILY trazodone 100 mg tablet 200 mg PO QHS rosuvastatin 40 mg Tablet 40 mg PO QHS potassium chloride 10 mEq tablet extended release 10 meq PO BID melatonin 10 mg Tablet 10 mg PO QHS oxybutynin chloride 10 mg tablet extended release 24hr 10 mg PO BID carvedilol 3.125 mg Tablet 3.125 mg PO BID Qty: 60 0RF ergocalciferol (vitamin D2) 1,250 mcg (50,000 unit) capsule 1,250 mcg PO MO temazepam 30 mg capsule 30 mg PO QHS oxycodone-acetaminophen [Percocet] 5-325 mg tablet See Rx Instructions .ROUTE .COMPLEX PRN (Reason: pain) 3 Days Qty: 12 0RF Rx Instructions: 1 TAB orally as needed ;1 TAB orally as needed q4-q6 hours alprazolam 0.5 mg tablet 0.5 mg PO TID PRN fluoxetine 40 mg capsule 40 mg PO DAILY Linzess 290 mcg capsule 290 mcg PO DAILY semaglutide 0.25 mg or 0.5 mg (2 mg/3 mL) pen injector 0.25 mg subcut QWEEK Rx Instructions: for 4 weeks sennosides [Aminata-guy] 8.6 mg tablet 8.6 mg PO BID PRN trospium 20 mg tablet 20 mg PO BID Referrals / Follow Up: Corin Mariscal MD [Primary Care Provider] - Within 2 Weeks Disposition Disposition (needs filled in before D/C Order can be placed): Psychiatric Hospital or Unit Charges/Coding Visit Charges Inpatient E&M: 00336 Disch Hosp
--- NOTE | 2024-01-30 16:40 | NURSING ---
Report called to Javier Dawson at [phone]. Transport here at 16:30 to [facility] pt.
--- NOTE | 2024-01-30 17:03 | NURSING ---
This RN called the sister Carlita and she said that she looked trough the pt whole apartment and could not find a cpap machine anywhere. She stated that it has been years since the pt has used this machine. She also does not see the that told her to use the machine. Pt is just fine using the oxygen to sleep at night and has not had any issues as well. She also clarified that it was her sister Laura who brought the pt in and she is also aware that the pt does not wear this cpap machine anymore. So pt must have been put on bipap on arrival d/t her being unresponsive.
== END 2024-01-30 17:10 | DRG 92 ==
LOC: ED 20:21 → MS3 20:47
PROVIDERS: Student in an Organized Health Care Education/Training Program; Admitting Provider Internal Medicine; Emergency Provider Emergency Medicine; PCP Family Medicine
DX: G92.9 Unspecified toxic encephalopathy (principal); D61.818 Other pancytopenia; J96.11 Chronic respiratory failure with hypoxia; F13.20 Sedative, hypnotic or anxiolytic dependence, uncomplicated; Z68.41 Body mass index [BMI] 40.0-44.9, adult; R45.851 Suicidal ideations; J44.9 Chronic obstructive pulmonary disease, unspecified; I12.9 Hypertensive chronic kidney disease with stage 1 through stage 4 chronic kidney disease, or unspecified chronic kidney disease; F10.10 Alcohol abuse, uncomplicated; F32.A Depression, unspecified; E66.01 Morbid (severe) obesity due to excess calories; E78.5 Hyperlipidemia, unspecified; E86.0 Dehydration; G47.33 Obstructive sleep apnea (adult) (pediatric); K21.9 Gastro-esophageal reflux disease without esophagitis; M19.90 Unspecified osteoarthritis, unspecified site; N18.1 Chronic kidney disease, stage 1; F41.9 Anxiety disorder, unspecified; F16.10 Hallucinogen abuse, uncomplicated; F19.19 Other psychoactive substance abuse with unspecified psychoactive substance-induced disorder; Z87.891 Personal history of nicotine dependence; Z79.51 Long term (current) use of inhaled steroids; Z99.81 Dependence on supplemental oxygen; Z79.899 Other long term (current) drug therapy; Z98.51 Tubal ligation status; Z90.49 Acquired absence of other specified parts of digestive tract; Z90.710 Acquired absence of both cervix and uterus; T42.4X5A Adverse effect of benzodiazepines, initial encounter; Z99.89 Dependence on other enabling machines and devices; T78.8XXA Other adverse effects, not elsewhere classified, initial encounter
CPT/HCPCS: 36415; 36600; 70450; 71046; 80053; 80307; 81001; 82077; 82550; 82803; 83605; 83735; 84100; 84443; 84484; 85025; 85610; 85730; 87040; 87086; 87631; 93005; 94002; 94003; 94640; 94668; 97162; 97166; 99285; J7030; A4216

== ENCOUNTER 2024-07-13 14:15 | Emergency (ER) | payer MEDICARE, MEDICAID, SELFPAY ==
[2024-07-13] VITALS (8 sets, daily range): BP systolic 132–155; BP diastolic 46–138; PULSE 113–118; RESP 20–27; TEMP 36.6; O2SAT 97–98; BMI 42.4
--- NOTE | 2024-07-13 14:18 | RAD_ITS ---
PROCEDURE: CHEST 1 VIEW (PORTABLE) REASON FOR EXAM: Cough TECHNIQUE: Frontal view of the chest. COMPARISON: Reviewed FINDINGS: Nonspecific hazy opacities in the left lower lobe with a possible underlying pleural effusion. Heart size enlarged but remains stable. No pneumothorax. Right lung grossly clear. RAD/Chest 1 View (Portable) IMPRESSION: As above. Reading Location: [facility]
[2024-07-13 14:42] LABS: Absolute Lymphocyte Count 0.96 X10^3/uL (0.83-4.51); Absolute Neutrophil Count 2.9 X10^3/uL (2.0-7.7); Basophil# 0.01 X10^3/uL; Basophil% 0.2 % (0-1); Eosinophil# 0.07 X10^3/uL; Eosinophils% 1.6 % (0-5); Hematocrit 34.5 % (37-47); Lymphocyte # 0.96 X10^3/ul (0.83-4.51); Lymphocyte % 22.2 % (19-41); Mean Corpuscular Hgb 28.3 pg (27.0-32.0); Mean Corpuscular Volume 97.7 fL (81-99); Mean Platelet Vol. 9.1 fl (6.2-12.0); Monocyte% 9.3 % (0-10); NRBC Flagged by Analyzer 0 % (0-5); Neutrophil # 2.86 X10^3/uL (2.7-7.7); Neutrophil % 66.2 % (47-70); Platelet Count 215 K/mm3 (150-450); RBC Distribution Width CV 13.4 % (11.6-14.6); RBC Distribution Width SD 48.3 fl (35.1-43.9); Red Blood Count 3.53 M/mm3 (4.2-5.4); White Blood Count 4.3 K/mm3 (4.4-11.0)
[2024-07-13 14:55] LABS: Anion Gap 6 (5-15); BUN 26 mg/dL (7-18); BUN/Creat Ratio 29.1 RATIO (10-20); Calcium,Total 9.2 mg/dL (8.5-10.1); Chloride 99 mmol/L (98-107); EST Glomerular Filtration Rate 68 mL/min (>60); Est Glom Filt Rate - Afr Amer 82 mL/min (>60); Glucose 205 mg/dL (74-106); Potassium 4.4 mmol/L (3.5-5.1); Sodium Level 138 mmol/L (136-145)
--- NOTE | 2024-07-13 15:25 | RAD_ITS ---
PROCEDURE: CHEST 1 VIEW (PORTABLE) REASON FOR EXAM: Lateral chest. Already have PA view. TECHNIQUE: Single frontal image including the chest and abdomen. COMPARISON: 07/13/2024 FINDINGS: Limited lateral-only views of the chest. No pleural effusion identified. Streaky opacity is present in the lung bases, suspected to be the left lung base based on the prior frontal radiograph. RAD/Chest 1 View (Portable) IMPRESSION: Possible atelectasis versus infiltrate in the left lung base. No effusion. Reading Location: [facility]
--- NOTE | 2024-07-13 15:25 | CT_ITS ---
PROCEDURE: BRAIN/HEAD WITHOUT CONTRAST REASON FOR EXAM: Headaches vomiting and fever TECHNIQUE: Noncontrast CT of the head. Multiplanar reconstructions performed. COMPARISON: 01/28/2024 FINDINGS: No acute intracranial hemorrhage. No loss of torres-white differentiation.Mild parenchymal volume loss is present.The ventricles and sulci are normal in appearance. The osseous structures are unremarkable. No soft tissue abnormality identified. The paranasal sinuses and mastoid air cells are clear. CT/Brain/Head without Contrast IMPRESSION: 1. No acute intracranial abnormality. Reading [facility]
--- NOTE | 2024-07-13 15:32 | EX.ED.VIS.UR ---
HPI HPI - URI History of Present Illness Chief Complaint: Shortness of Breath Informant: patient and family Onset/Context/Timing Onset: Weeks Context: Gradual Onset Timing: Continuous Current Severity: Moderate Maximum Severity: Moderate Associated Symptoms Associated Symptoms: Positive for Nasal Congestion, Headache, Myalgias, Nausea, Vomiting, Shortness of Breath and Nonproductive cough Narrative Narrative: 63-year-old female had URI symptoms about 3 weeks ago. Took a COVID test that was positive. She has been on 2 different rounds of antibiotics with clindamycin and doxycycline and 3 different rounds of steroids. Without significant relief. Patient is chronically on 3 L of oxygen due to pulmonary hypertension and a paralyzed diaphragm. States she has been intermittent fevers, headaches and nausea and vomiting. Denies diarrhea. Prior similar symptoms: Yes Recent Illness/Hospitalization: No ROS ROS ED ROS Narrative URI. Nonproductive cough. Fever. Nausea vomiting. Headaches. Constitutional Constitutional ED: Reports fever(s) Eyes Eyes: Denies blurry vision ENT ENT ED: Denies ear pain, rhinorrhea or sore throat Cardiovascular Cardiovascular: Denies chest pain or palpitations Respiratory/Chest Respiratory/Chest: Reports cough Gastrointestinal Gastrointestinal: Reports nausea and vomiting; Denies abdominal pain, constipation, diarrhea or melena Genitourinary Genitourinary ED: Denies dysuria or hematuria Musculoskeletal Musculoskeletal: Denies arthralgias or back pain Integumentary Denies abscess Neurologic Neurologic: Reports headache(s) Psychiatric Psychiatric: Denies anxiety or depression Endocrine Endocrinology: Denies cold intolerance Hematologic/Lymphatic Hematologic/Lymphatic: Denies easy bleeding, easy bruising or lymphadenopathy Allergic/Immunologic Allergic/Immunologic ED: Denies mouth swelling or tongue swelling [facility] Medical History Contusion of left hip Contusion of rib on right side Contusion of left shoulder Contusion of scalp Closed fracture of fibula, proximal, left Pyuria Substance abuse Kidney disease Former smoker BiPAP (biphasic positive airway pressure) dependence Sleep apnea On home oxygen therapy Hypertension Dementia Alcohol withdrawal Alcohol abuse Admitted to alcohol detoxification center Medical marijuana use Frequent falls DVT (deep venous thrombosis) Right ventricular systolic dysfunction Right bundle branch block (RBBB) Essential (primary) hypertension Sepsis Abdominal pain Migraine Chronic renal insufficiency, stage I Pancytopenia Respiratory tract infection due to COVID-19 virus Endocarditis Gastritis Restrictive lung disease Colitis Osteoarthritis Chronic renal failure Depression GENNARO (obstructive sleep apnea) Pneumonia Bronchitis Asthma COPD (chronic obstructive pulmonary disease) Morbid obesity HLD (hyperlipidemia) Bronchiectasis Idiopathic right ventricular dilation Thrombocytopenia Leukopenia Abnormal liver CT Anemia Anxiety Respiratory insufficiency Respiratory failure with hypoxia Colitis with rectal bleeding History of umbilical hernia History of diarrhea Arthritis Gastroesophageal reflux disease Home Medications ?Medication ?Instructions ?Recorded ?Last Taken ?Type pantoprazole 40 mg tablet,delayed 40 mg PO DAILY ACID REFLUX 12/09/18 07/12/24 History release rosuvastatin 40 mg tablet 40 mg PO QHS CHOLESTEROL 07/19/21 07/12/24 History melatonin 10 mg tablet 10 mg PO QHS SLEEP 07/16/22 07/12/24 History oxybutynin chloride 10 mg 10 mg PO BID OVERCTVE BLADDER 07/18/22 07/12/24 History tablet,extended release 24 hr carvedilol 3.125 mg tablet 3.125 mg PO BID HEART #60 tabs 07/20/22 07/12/24 Rx mometasone-formoterol HFA 100 2 puff inhalation BID SHORTNESS OF 03/05/23 07/12/24 Rx mcg-5 mcg/actuation aerosol BREATH/WHEEZING #13 grams inhaler (Dulera) temazepam 30 mg capsule 30 mg PO QHS INSOMNIA 07/12/23 07/12/24 History alprazolam 0.5 mg tablet 0.5 mg PO TID PRN anxiety 01/28/24 07/12/24 History fluoxetine 40 mg capsule 40 mg PO DAILY depression 01/28/24 07/12/24 History linaclotide 290 mcg capsule 290 mcg PO DAILY bowel function 01/28/24 07/12/24 History (Linzesmarsha) trospium 20 mg tablet 20 mg PO BID see 01/28/24 07/12/24 History hydrocodone-acetaminophen 5-325mg 1 tab PO Q6H PRN pain 7 days #10 07/13/24 Unknown Rx 5mg-325mg tabs Allergy/AdvReac Type Severity Reaction Status Date / Time house dust Allergy ITCHY EYES Verified 08/18/23 19:19 Penicillins Allergy Hives Verified 08/18/23 19:19 Seasonal Allergies: Uncoded Allergy ITCHY EYES Verified 08/18/23 19:19 Family History Father Colon cancer Mother Cancer pancreatic Surgical History History of tubal ligation History of appendectomy History of hysterectomy History of cholecystectomy Social History household members: none Smoking Status: Former smoker Tobacco: How many years used: 25 how long ago did patient quit smokin, 0.5ppd second hand exposure: Yes alcohol intake: never substance use type: does not use EXAM Physical Exam Narrative Exam Narrative: Well-appearing female. Vital signs stable pressures elevated 155/138. No distress. Patient is emotionally upset and tearful at times. Family at bedside. H EENT exam pupils round react light. Motions are intact. Moist mucous membranes. TMs not visualized due to wax. Neck nontender no meningismus. No lymphadenopathy. Lungs clear to auscultation bilaterally. Dry cough. No rales rhonchi or wheezing. Heart regular rhythm no murmur. Rate about 110. Chest wall nontender. Abdomen soft nontender. No peritoneal signs. Moving all 4 extremities. Calves are nontender that edema or cords. Neurologically she is awake alert no focal motor deficits. Answer questions following commands. Normal motor strength. Both upper and lower extremities. NIH is 0. Back nontender. Skin unremarkable. Const Vital Signs: 07/13/24 14:15 07/13/24 14:18 07/13/24 14:18 Temperature 97.8 F Temperature Source Temporal Pulse Rate 118 H Respiratory Rate 26 H 23 H Respiratory Effort Blood Pressure 155/138 H Blood Pressure Mean 143 Pulse Ox 97 98 Oxygen Delivery Method Nasal Cannula Room Air Nasal Cannula Oxygen Flow Rate (L/min) 3 3 07/13/24 16:00 07/13/24 16:00 07/13/24 16:04 Temperature Temperature Source Pulse Rate 116 H 116 H Respiratory Rate 27 H 21 H Respiratory Effort Short of Breath Blood Pressure 152/95 H 152/92 H Blood Pressure Mean 114 112 Pulse Ox 98 98 Oxygen Delivery Method Room Air Nasal Cannula Oxygen Flow Rate (L/min) 3 07/13/24 17:00 07/13/24 17:07 Temperature Temperature Source Pulse Rate 115 H Respiratory Rate 20 H Respiratory Effort Blood Pressure 132/46 H Blood Pressure Mean 74 Pulse Ox 98 Oxygen Delivery Method Nasal Cannula Oxygen Flow Rate (L/min) 3 Positive well nourished and well developed; Negative for cachectic or contractures General Appearance ED: well developed and NAD; Negative for cachectic, contractures, cyanotic, diaphoretic or pallor Nutritional Appearance: Negative for cachectic HEENT Reports moist mucous membranes normocephalic; Negative for atraumatic or scalp tenderness Face and Sinus: Negative for sinus tenderness, maxillary instability or facial tenderness Throat: posterior oropharynx normal Eyes PERRL and EOMs intact bilaterally General Eye ED: Negative for pale conjunctiva or scleral icterus Neck no lymphadenopathy, supple, no meningeal signs and no JVD General: Negative for anterior neck swelling or lymphadenopathy Resp normal respiratory effort and clear to auscultation bilaterally Effort and Inspection: Negative for retractions or pain with movement Auscultation: Negative for rales, rhonchi, wheezes or diminished lung sounds Cardio S1 normal heart sound, S2 normal heart sound and no murmurs Rate: tachycardic Rhythm: regular rhythm GI non-tender, non-distended and no masses Auscultation: normoactive bowel sounds Palpation: soft; Negative for tender, guarding, hepatomegaly or mass Back/Spine no CVA tenderness and normal ROM General Back: Negative for CVA tenderness Cervical Spine: Negative for cervical spine tenderness Thoracic Spine / Upper Back: Negative for thoracic spinal tenderness Lumbar Spine / Lower Back: Negative for lumbar spinal tenderness Sacrum: Negative for tenderness Extremity normal to inspection and full ROM General Extremety ED: Negative for cyanosis, tenderness or other findings General Extremity: Negative for cyanosis or other findings Neuro oriented x3 and CN's II-XII intact bilaterally Sensorium / Orientation: alert, oriented to person, oriented to place and oriented to time; Negative for orientation impaired, lethargic or stuporous Motor Exam: strength 5/5 throughout; Negative for general weakness or strength abnormal Psych mental status grossly normal Attitude: No agitated Mood & Affect: depressed, anxious and tearful Skin General Skin Exam: Negative for jaundice or pallor Lesions: no lesions Rashes: no rashes Trauma: Negative for abrasion or laceration MDM MDM MDM Narrative Medical decision making narrative: 63-year-old female with URI with COVID diagnosed 3 weeks ago. This is not getting better. Complaining of headaches and just not feeling well. Continue cough and fever. Screening labs. CT chest x-ray and UA. Should be treated with Tylenol and Toradol. Repeat exam patient is doing well at 6:10 PM. We went over all of her test results. She understands nothing the middle of the hospital for. Her labs are not significant different from prior. I think is her symptoms from the COVID she had 2 to 3 weeks ago. Fluids and rest. Tylenol Motrin. I will give her limited [place] 10 no refill for the headaches. She does not need antibiotics. An outpatient follow-up with her primary care physician Dr. Mariscal. History & Record Review Discussion w/independent historian: Patient Additional record(s) reviewed:: Prior inpatient record, Prior outpatient record, Prior ED visit and Prior labs Lab Data Attestation: I reviewed the patient's lab results. Lab results narrative: CBC shows a white count of 4. H&H 10.0 and 34. Platelets 215. Electrolytes show gap 6. BUN of 26 creatinine 0.9. Glucose 205. UA shows no nitrates. 0 reds. 5-10 whites. No bacteria. Negative. Labs: Laboratory Results - last 24 hr 07/13/24 07/13/24 14:21 16:24 WBC 4.3 L RBC 3.53 L Hgb 10.0 L Hct 34.5 L MCV 97.7 MCH 28.3 MCHC 29.0 L RDW Std Deviation 48.3 H RDW Coeff of Jaun 13.4 Plt Count 215 MPV 9.1 Immature Gran % (Auto) 0.500 Neut % (Auto) 66.2 Lymph % (Auto) 22.2 [place] % (Auto) 9.3 Eos % (Auto) 1.6 Baso % (Auto) 0.2 Absolute Neuts (auto) 2.9 Absolute Lymphs (auto) 0.96 Nucleated RBC % 0 Sodium 138 Potassium 4.4 Chloride 99 Carbon Dioxide 32.0 Anion Gap 6 BUN 26 H Creatinine 0.90 Est GFR (MDRD) Af Amer 82 Est GFR (MDRD) Non-Af 68 BUN/Creatinine Ratio 29.1 H Glucose 205 H Calcium 9.2 Urine Color Yellow Urine Clarity Clear Urine pH 6.0 Ur Specific [place] 1.020 Urine Protein 30 H Urine Glucose (UA) 50 H Urine Ketones Negative Urine Occult Blood 10 H Urine Nitrite Negative Urine Bilirubin Negative Urine Urobilinogen 1 H Ur Leukocyte Esterase 25 H Urine RBC 0-5 SEEN Urine WBC 5-10 SEEN Ur Squamous Epith Cells 0-5 SEEN Urine Bacteria 0 SEEN Urine Mucus 1+ Radiography Chest X-Ray - ED: 2 View, Read by ED Physician, Heart, Lungs, Mediastinum, Bony Structures, No Acute Disease and Chronic Changes Diagnostic Testing: Clinical Impression(s) from Imaging Studies Chest X-Ray 07/13/24 14:18 IMPRESSION: As above. Reading Location: [facility] Brain CT 07/13/24 15:25 IMPRESSION: 1. No acute intracranial abnormality. Reading Location: [facility] Chest x-ray, shows normal cardiac silhouette. No infiltrates. Elevated right hemidiaphragm which is her baseline and chronic. Chronic lung changes. No pneumonia. No infiltrate. Lumbar spine rods. COVID, flu and RSV negative. Chest x-ray negative. CAT scan of the brain negative. Discharge Plan Triage Chief Complaint: Shortness of Breath ED Provider: Kendall Dsouza Dx/Rx/DC Orders Clinical Impression: URI (upper respiratory infection), Generalized headaches, History of COVID-19 Instructions: ED URI, Viral, No Abx (Adult) Prescriptions: New hydrocodone-acetaminophen 5-325 mg tablet 1 tab PO Q6H PRN (Reason: pain) 7 Days Qty: 10 0RF No Action Dulera 100-5 mcg/actuation HFA aerosol inhaler 2 puff inhalation BID Qty: 13 3RF pantoprazole 40 MG tablet 40 mg PO DAILY rosuvastatin 40 mg Tablet 40 mg PO QHS melatonin 10 mg Tablet 10 mg PO QHS oxybutynin chloride 10 mg tablet extended release 24hr 10 mg PO BID carvedilol 3.125 mg Tablet 3.125 mg PO BID Qty: 60 0RF temazepam 30 mg capsule 30 mg PO QHS alprazolam 0.5 mg tablet 0.5 mg PO TID PRN fluoxetine 40 mg capsule 40 mg PO DAILY Linzess 290 mcg capsule 290 mcg PO DAILY trospium 20 mg tablet 20 mg PO BID Primary Care Provider: Corin Mariscal Referrals: Corin Mariscal MD [Primary Care Provider] - 1 Week if not improving Activity Restrictions/Additional Instructions: Plenty of fluids and rest. Most likely the headaches are from your COVID. If they are not improving follow-up with your doctor they can do an MRI. Motrin and Tylenol for body aches and headaches. Limited [place] for pain. Follow-up with your doctor if not improving. Print Language: Armenian Disposition Disposition: Home, Self Care
[2024-07-13] MEDS: 0.9% Normal Saline (1000mL) 1,000 ML 999 ML IV (15:53)
[2024-07-13] MEDS: Acetaminophen 500 MG Tablet 1000 MG PO (15:54)
[2024-07-13] MEDS: Ketorolac 30 MG/ML Syringe IV (15:55)
[2024-07-13 16:33] LABS: Bacteria 0 SEEN /hpf (None Seen)
[2024-07-13 16:38] LABS: Color, Urine Yellow (Yellow); Glucose, Dipstick 50 mg/dl (Normal); Ketone-Dipstick Negative (Negative); Leukocyte Esterase-Dipstick 25 /ul (Negative); Nitrite-Dipstick Negative (Negative); Occult Blood-Urine 10 /ul (Negative); Protein-Dipstick 30 mg/dl (Negative); Urine Bilirubin Dipstick Negative (Negative); Urine Clarity Clear (Clear); Urine Urobilinogen 1 mg/dl (Normal)
[2024-07-13 16:58] LABS: Red Blood Cells-Urine 0-5 SEEN /hpf (0-5)
[2024-07-13 16:59] LABS: Squamous Epithelial Cells - UA 0-5 SEEN /hpf (5-10)
[2024-07-13 17:00] LABS: Mucous, Urine 1+ /hpf (<or=2+); White Blood Cells 5-10 SEEN /hpf (0-5)
[2024-07-13] MEDS: Morphine 4 MG/ML Syringe IV (17:20)
== END 2024-07-13 18:39 | disposition home or self-care (01) ==
PROVIDERS: Emergency Provider Emergency Medicine; PCP Family Medicine; Visit Provider Emergency Medicine
DX: J06.9 Acute upper respiratory infection, unspecified (principal); I27.20 Pulmonary hypertension, unspecified; J44.9 Chronic obstructive pulmonary disease, unspecified; Z90.710 Acquired absence of both cervix and uterus; E78.5 Hyperlipidemia, unspecified; R51.9 Headache, unspecified; J98.6 Disorders of diaphragm; Z86.16 Personal history of COVID-19; Z87.891 Personal history of nicotine dependence; N18.1 Chronic kidney disease, stage 1; I12.9 Hypertensive chronic kidney disease with stage 1 through stage 4 chronic kidney disease, or unspecified chronic kidney disease; Z99.81 Dependence on supplemental oxygen; G47.33 Obstructive sleep apnea (adult) (pediatric); K21.9 Gastro-esophageal reflux disease without esophagitis; Z79.899 Other long term (current) drug therapy; F41.9 Anxiety disorder, unspecified; Z90.49 Acquired absence of other specified parts of digestive tract; Z98.51 Tubal ligation status
CPT/HCPCS: 96361; 96374; 96375; 99282; 70450; 71045; 80048; 81001; 85025; 87631; A4216

== ENCOUNTER 2024-07-15 14:08 | Inpatient (IN) | payer MEDICARE, MEDICAID, SELFPAY ==
[2024-07-15] VITALS (8 sets, daily range): BP systolic 112–156; BP diastolic 64–118; PULSE 102–109; RESP 12–20; TEMP 36.4–36.9; O2SAT 93–100; BMI 42.3; BMI 39.9
--- NOTE | 2024-07-15 16:13 | EKG12_ITS ---
Test Reason : Blood Pressure : */* mmHG Vent. Rate : 107 BPM Atrial Rate : 107 BPM P-R Int : 150 ms QRS Dur : 120 ms QT Int : 366 ms P-R-T Axes : 64 76 36 degrees QTcB Int : 488 ms Sinus tachycardia Low voltage QRS Right bundle branch block Abnormal ECG Confirmed by Manjit Dyson ([id number]), scientific editor UZMA HUSTON ([id number]) on 07/16/2024 11:24:20 AM Referred By: Confirmed By: Manjit Dyson
--- NOTE | 2024-07-15 17:09 | RAD_ITS ---
PROCEDURE: CHEST 1 VIEW (PORTABLE) REASON FOR EXAM: 63-year-old female, shortness of breath, cough, suspected stroke. TECHNIQUE: Frontal view of the chest. COMPARISON: Chest radiograph 07/13/2024. FINDINGS: Visualization is limited by body habitus. Cardiac and mediastinal contours are stable. Low lung volumes bilaterally. Probable small left pleural effusion. No large consolidation or pneumothorax. The bones are unremarkable. RAD/Chest 1 View (Portable) IMPRESSION: NO SIGNIFICANT CHANGE SINCE THE PRIOR EXAM. Reading Location: [id number]
[2024-07-15 17:15] LABS: Absolute Lymphocyte Count 0.77 X10^3/uL (0.83-4.51); Absolute Neutrophil Count 5.6 X10^3/uL (2.0-7.7); Basophil# 0.02 X10^3/uL; Basophil% 0.3 % (0-1); Eosinophil# 0.05 X10^3/uL; Eosinophils% 0.7 % (0-5); Hematocrit 36.4 % (37-47); Hemoglobin 10.3 g/dL (12.0-15.0); Lymphocyte # 0.77 X10^3/ul (0.83-4.51); Lymphocyte % 10.8 % (19-41); Mean Corp Hgb Conc 28.3 g/dL (32-36); Mean Corpuscular Hgb 27.8 pg (27.0-32.0); Mean Corpuscular Volume 98.1 fL (81-99); Mean Platelet Vol. 9.2 fl (6.2-12.0); Monocyte# 0.69 X10^3/uL; Monocyte% 9.6 % (0-10); NRBC Flagged by Analyzer 0 % (0-5); Neutrophil % 78.2 % (47-70); Platelet Count 184 K/mm3 (150-450); RBC Distribution Width SD 50.2 fl (35.1-43.9); Red Blood Count 3.71 M/mm3 (4.2-5.4); White Blood Count 7.2 K/mm3 (4.4-11.0)
[2024-07-15 17:18] LABS: Anion Gap 5 (5-15); BUN 16 mg/dL (7-18); BUN/Creat Ratio 19.3 RATIO (10-20); Calcium,Total 8.8 mg/dL (8.5-10.1); Chloride 98 mmol/L (98-107); Creatinine, Serum 0.83 mg/dL (0.55-1.02); EST Glomerular Filtration Rate 74 mL/min (>60); Est Glom Filt Rate - Afr Amer 90 mL/min (>60); Estimated Creatinine Clearance 95.41 ml/min; Glucose 157 mg/dL (74-106); Potassium 4.4 mmol/L (3.5-5.1); Sodium Level 136 mmol/L (136-145)
[2024-07-15 17:37] LABS: International Normalized Ratio 0.8; Prothrombin Time (Protime)PT. 11.1 SECONDS (11.7-14.9)
--- NOTE | 2024-07-15 18:37 | EX.ED.DYSGE1 ---
HPI History of Present Illness Chief Complaint: Headache Detail of Chief Complaint: Headache, aches, flulike symptoms Informant: patient and family Onset/Context/Timing Onset: Days Context: Gradual Onset Timing: Continuous and Waxes and wanes Quality: Viral/flulike symptoms Location: Headache, respiratory, GI and myalgia arthralgias Current Severity: Moderate Maximum Severity: Severe Worsened by: Light sensitivity Relieved by: Nothing Associated Symptoms Associated Symptoms: Documented under location Narrative Narrative: Patient is a 63-year-old woman. She was seen on the . She had extensive workup which was unremarkable. Patient was recently diagnosed with COVID. She has viral-like systemic symptoms. Patient denies recent fevers. She does report sensitivity to light. She denies neck pain or neck stiffness. She does report mild cough. She also has mild GI symptoms. The note authored by Dr. Dosuza on July 13 was reviewed. She had a chest x-ray at that time which was interpreted by Dr. Dsouza and radiologist negative. She had a CT of her head that was interpreted by radiology as negative for any acute findings and reviewed by me. Prior similar symptoms: Yes Recent Illness/Hospitalization: Yes [facility] Medical History Contusion of left hip Contusion of rib on right side Contusion of left shoulder Contusion of scalp Closed fracture of fibula, proximal, left Pyuria Substance abuse Kidney disease Former smoker BiPAP (biphasic positive airway pressure) dependence Sleep apnea On home oxygen therapy Hypertension Dementia Alcohol withdrawal Alcohol abuse Admitted to alcohol detoxification center Medical marijuana use Frequent falls DVT (deep venous thrombosis) Right ventricular systolic dysfunction Right bundle branch block (RBBB) Essential (primary) hypertension Sepsis Abdominal pain Migraine Chronic renal insufficiency, stage I Pancytopenia Respiratory tract infection due to COVID-19 virus Endocarditis Gastritis Restrictive lung disease Colitis Osteoarthritis Chronic renal failure Depression GENNARO (obstructive sleep apnea) Pneumonia Bronchitis Asthma COPD (chronic obstructive pulmonary disease) Morbid obesity HLD (hyperlipidemia) Bronchiectasis Idiopathic right ventricular dilation Thrombocytopenia Leukopenia Abnormal liver CT Anemia Anxiety Respiratory insufficiency Respiratory failure with hypoxia Colitis with rectal bleeding History of umbilical hernia History of diarrhea Arthritis Gastroesophageal reflux disease Home Medications ?Medication ?Instructions ?Recorded ?Last Taken ?Type pantoprazole 40 mg tablet,delayed 40 mg PO DAILY ACID REFLUX 12/09/18 07/12/24 History release rosuvastatin 40 mg tablet 40 mg PO QHS CHOLESTEROL 07/19/21 07/12/24 History melatonin 10 mg tablet 10 mg PO QHS SLEEP 07/16/22 07/12/24 History carvedilol 3.125 mg tablet 3.125 mg PO BID HEART #60 tabs 07/20/22 07/12/24 Rx mometasone-formoterol HFA 100 2 puff inhalation BID SHORTNESS OF 03/05/23 07/12/24 Rx mcg-5 mcg/actuation aerosol BREATH/WHEEZING #13 grams inhaler (Dulera) temazepam 30 mg capsule 30 mg PO QHS INSOMNIA 07/12/23 07/12/24 History alprazolam 0.5 mg tablet 0.5 mg PO TID PRN anxiety 01/28/24 07/12/24 History fluoxetine 40 mg capsule 40 mg PO DAILY depression 01/28/24 07/12/24 History linaclotide 290 mcg capsule 290 mcg PO DAILY bowel function 01/28/24 07/12/24 History (Gaby) trospium 20 mg tablet 20 mg PO BID see 01/28/24 07/12/24 History hydrocodone-acetaminophen 5-325mg 1 tab PO Q6H PRN pain 7 days #10 07/13/24 Unknown Rx 5mg-325mg tabs cyclobenzaprine 5 mg tablet 5 mg PO TID PRN PRN muscle spasm 07/15/24 Unknown History ergocalciferol (vitamin D2) 1,250 1,250 mcg PO QWEEK 07/15/24 Unknown History mcg (50,000 unit) capsule trazodone 100 mg tablet 200 mg PO QHS 07/15/24 Unknown History Allergy/AdvReac Type Severity Reaction Status Date / Time house dust Allergy ITCHY EYES Verified 07/15/24 14:10 Penicillins Allergy Hives Verified 07/15/24 14:10 Seasonal Allergies: Uncoded Allergy ITCHY EYES Verified 07/15/24 14:10 Family History Father Colon cancer Mother Cancer pancreatic Surgical History History of tubal ligation History of appendectomy History of hysterectomy History of cholecystectomy Social History household members: none Smoking Status: Former smoker Tobacco: How many years used: 25 how long ago did patient quit smokin, 0.5ppd second hand exposure: Yes alcohol intake: never substance use type: does not use ROS ROS ED Constitutional Constitutional ED: Reports chills, fever(s) and subjective; Denies sweats or weight loss Eyes Eyes: Reports other Details: Photophobia ; Denies blurry vision, change in vision or diplopia ENT ENT ED: Reports rhinorrhea and sore throat; Denies ear pain Cardiovascular Cardiovascular: Denies chest pain, orthopnea, palpitations or paroxysmal nocturnal dyspnea Respiratory/Chest Respiratory/Chest: Reports cough and dyspnea; Denies dyspnea on exertion, orthopnea or paroxysmal nocturnal dyspnea Gastrointestinal Gastrointestinal: Reports diarrhea, nausea and vomiting; Denies abdominal pain Genitourinary Genitourinary ED: Denies dysuria, hematuria or urinary frequency Musculoskeletal Musculoskeletal: Reports arthralgias and myalgias Integumentary Reports rash Neurologic Neurologic: Reports headache(s) and weakness; Denies paresthesias Psychiatric Psychiatric: Reports anxiety and depression Hematologic/Lymphatic Hematologic/Lymphatic: Reports systems reviewed and no addt'l complaints, except as documented Allergic/Immunologic Allergic/Immunologic ED: Reports mouth swelling EXAM Physical Exam Const Vital Signs: 07/15/24 14:08 07/15/24 16:08 07/15/24 16:45 Temperature 98.5 F Temperature Source Oral Pulse Rate 109 H 108 H Respiratory Rate 16 17 Blood Pressure 156/89 H 144/77 H Blood Pressure Mean 111 99 Pulse Ox 97 93 Oxygen Delivery Method Nasal Cannula Nasal Cannula Nasal Cannula Oxygen Flow Rate (L/min) 3 5 5 07/15/24 18:00 07/15/24 19:04 07/15/24 19:20 Temperature 98.1 F Temperature Source Pulse Rate 108 H 108 H 102 H Respiratory Rate 17 16 15 Blood Pressure 146/64 H 154/118 H 149/79 H Blood Pressure Mean 91 130 102 Pulse Ox 99 97 99 Oxygen Delivery Method Nasal Cannula Nasal Cannula Oxygen Flow Rate (L/min) 5 3 Vital signs reveal tachycardia. Patient is presently on 3 L of oxygen saturating 97%. Positive well nourished and well developed Constitutional Narrative: BMI is 42.3 General Appearance ED: well developed; Negative for cyanotic, diaphoretic, NAD or pallor HEENT Reports dry mucous membranes HEENT Narrative: Head is atraumatic normocephalic. Ears normal. Nares patent. Posterior pharynx is normal Mouth ED: Yes dry mucous membranes Mouth: dry mucous membranes Eyes PERRL and EOMs intact bilaterally Eyes Narrative: Patient has no photophobia. There is no nystagmus. There is no visual field cut General Eye ED: Negative for pale conjunctiva or scleral icterus Neck no lymphadenopathy, supple and no JVD General: Negative for tenderness Resp normal respiratory effort and clear to auscultation bilaterally Cardio regular rate, regular rhythm, S1 normal heart sound, S2 normal heart sound and no murmurs GI normal to inspection, nondistended, normoactive bowel sounds, non-tender, non-distended and no masses; Negative for hepatosplenomegaly Palpation: soft Back/Spine no CVA tenderness Extremity normal to inspection General Extremety ED: Yes edema; Negative for tenderness or other findings General Extremity: edema; Negative for other findings Neuro oriented x3, CN's II-XII intact bilaterally and no sensory deficits noted Sensorium / Orientation: alert Motor Exam: strength 5/5 throughout Psych Mood & Affect: depressed, anxious and tearful Skin no rashes or lesions noted, no wounds and skin turgor normal General Skin Exam: Negative for jaundice or pallor MDM MDM MDM Narrative Medical decision making narrative: Suspect patient has symptoms due to COVID-19. Will obtain CBC to assess white count differential. Will obtain BMP is clinically she appears dry and states she is having trouble eating and drinking. Her CO2 is elevated. Because her CO2 Lab Data Attestation: I reviewed the patient's lab results. Lab results narrative: CBC reveals mild anemia and is chronic. CO2 is elevated at 33. Will obtain ABG. Labs: Laboratory Results - last 24 hr 07/15/24 16:51 WBC 7.2 RBC 3.71 L Hgb 10.3 L Hct 36.4 L MCV 98.1 MCH 27.8 MCHC 28.3 L RDW Std Deviation 50.2 H RDW Coeff of Jaun 14.0 Plt Count 184 MPV 9.2 Immature Gran % (Auto) 0.400 Neut % (Auto) 78.2 H Lymph % (Auto) 10.8 L [place] % (Auto) 9.6 Eos % (Auto) 0.7 Baso % (Auto) 0.3 Absolute Neuts (auto) 5.6 Absolute Lymphs (auto) 0.77 L Nucleated RBC % 0 PT 11.1 L INR 0.8 APTT 21.0 L Sodium 136 Potassium 4.4 Chloride 98 Carbon Dioxide 33.0 H Anion Gap 5 BUN 16 Creatinine 0.83 Estim Creat Clear Calc 95.41 Est GFR (MDRD) Af Amer 90 Est GFR (MDRD) Non-Af 74 BUN/Creatinine Ratio 19.3 Glucose 157 H Calcium 8.8 ABG Data Attestation: I personally reviewed and interpreted this ABG as follows: Interpretation: VBG reveals a pH of 7.31, pCO2 of 75, pO2 of 32.2. Base excess is 12 and bicarb is 38.5. ABG results: ABG 07/15/24 18:35 Specimen Type MARGUERITE Sample Site Not entered VBG pH 7.32 VBG pO2 32 VBG HCO3 39 H VBG Total CO2 41 H VBG O2 Sat (Calc) 53 VBG Base Excess 12 H POC Mix VBG pCO2 Pt Tmp 75.1 H* O2 Delivery Device Not entered Crit Call To/Read Back Yes Blood Gas Notified Time 18:37:08 Radiography Chest X-Ray - ED: 1 View and Read by ED Physician (Independent reviewed interpreted by me. Limited due to the fact of body habitus and limited inspiration. There may be borderline cardiomegaly. There may be a small pleural effusion on the left. Film is suboptimal. There is no obvious pneumonia or pneumothorax.) Diagnostic Testing: Clinical Impression(s) from Imaging Studies Chest X-Ray 07/15/24 17:09 IMPRESSION: NO SIGNIFICANT CHANGE SINCE THE PRIOR EXAM. Reading Location: [facility] Rhythm Strip Rhythm Strip: Sinus Tach Rate: 110 Ectopy: None (Complexes are wide. Represents a bundle branch block.) EKG Initial EKG: Attestation: I personally reviewed and interpreted this EKG as follows: Interpretation: Sinus Tachycardia (Rate is 107. Voltage is low which may be due to body habitus. There is a right bundle branch block. Heart rate is 107. MI interval is 150 ms per cures duration 120 ms. Twain is normal.) Management Discussion w/another healthcare provider: Hospitalist (Spoke with Dr. Pedro Garzon who accepted patient is full admission MedSurg) Treatment and Re-Evaluation :: Because patient has acute on chronic hypercapnia we will contact hospitalist for admission for her headache due to COVID. Discharge Plan Dx/Rx/DC Orders Clinical Impression: Viral cephalgia, Anemia, HLD (hyperlipidemia), Acute and chronic respiratory failure with hypercapnia, COVID-19 miri de leon, BMI 40.0-44.9, adult Disposition Disposition: Acute Care Hospital [facility]
[2024-07-15 18:40] LABS: Blood Gas Specimen Type VEN; O2 Delivery Device Not entered; SITE Not entered; VBG BASE EXCESS 12 mmol/L (-1.0-3.5); VBG Bicarbonate 39 mmol/L (22-26); VBG PO2 32 mmHg (25-40); VBG SO2 53 % (50-70); VBG TCO2 41 mmol/L (23-33); VBG pCO2 75.1 mmHg (41-51); VBG pH 7.32 (7.32-7.42)
--- NOTE | 2024-07-15 18:44 | CPS ---
Critical CO2 on VBG, Dr. Salter aware.
[2024-07-15] MEDS: Ketorolac 15 MG/ML Vial IV (19:13)
--- NOTE | 2024-07-15 20:30 | PCM.HP.STD ---
[facility] - General General Date of Admission: 07/15/24 Date of Service: 07/15/24 Chief Complaint: SOB and Headache. [facility] Narrative ALFIE HOGAN, is a 63 F with a past medical history of essential hypertension; on carvedilol, hyperlipidemia; on rosuvastatin, former tobacco abuse for ~25 years (quit 2007), morbid obesity; with BMI of 42.3 this admission, obesity hypoventilation syndrome; with GENNARO on BiPAP, history of pulmonary hypertension with paralyzed diaphragm and restrictive lung disease; with chronic hypoxic respiratory failure on 3L NC continuous, history of DVT; currently not on anticoagulation, history of asthma with bronchiectasis; previously on Dulera with patient stopping this agent because she did not think she needed it, history of endocarditis, history of RBBB, history of biventricular systolic dysfunction, history of substance abuse; with alcohol and cannabis, overactive bladder; on Trospium, history of muscle spasms; on cyclobenzaprine 3 times daily as needed, history of dementia, history of migraine headaches, depression with anxiety; on fluoxetine and as needed alprazolam, history of colitis; with rectal bleeding, IBS; of constipation-type on Linzess, history of appendectomy, history of cholecystectomy, history of hysterectomy, history of tubal ligation, GERD; on pantoprazole, OA; with chronic pain on as needed hydrocodone-acetaminophen every 6 hours as needed and recently diagnosed COVID-19 ~3 weeks ago with subsequent persistent viral illness consistent with Long COVID who presents to [facility] ER complaining of headache, body aches and persistent flulike symptoms. Ms. Hogan reports her symptoms have been persistent and progressively worsening since she was first diagnosed with COVID-19 in spite of being treated with 2 different rounds of antibiotics with clindamycin and doxycycline and 3 different rounds of steroids. She states she has received no relief from this treatment with continued intermittent fevers, migraine-type headaches and nausea with bilious emesis. She admits to frequent nonproductive cough and dyspnea on exertion that has now progressed to shortness of breath at rest with worsening depression and anxiety. She admits to associated nonbloody diarrhea but she denies blurry vision, dysuria, arthralgias, back pain or rash. In the ER she was noted to have VBG that revealed respiratory acidosis with pH 7.32 and POC mix 75.1 mmHg due to suspected AE Asthma in the setting of persistent and poorly tolerated Long COVID complicated by clinical evidence of [id number] Respiratory Insufficiency with supplemental oxygen increased to 5L NC in the setting of known Obesity Hypoventilation Syndrome and she was then admitted to the general medical floor for ongoing care for a stay that is expected to extend beyond 2 midnights. [facility] Medical History (Updated 07/16/24 @ 02:[address] Pedro Ervin, DO) Chronic pain CPAP (continuous positive airway pressure) dependence Contusion of left hip Contusion of rib on right side Contusion of left shoulder Contusion of scalp Closed fracture of fibula, proximal, left Pyuria Substance abuse Kidney disease Former smoker BiPAP (biphasic positive airway pressure) dependence Sleep apnea On home oxygen therapy Hypertension Dementia Alcohol withdrawal Alcohol abuse Admitted to alcohol detoxification center Medical marijuana use Frequent falls DVT (deep venous thrombosis) Right ventricular systolic dysfunction Right bundle branch block (RBBB) Essential (primary) hypertension Sepsis Abdominal pain Migraine Chronic renal insufficiency, stage I Pancytopenia Respiratory tract infection due to COVID-19 virus Endocarditis Gastritis Restrictive lung disease Colitis Osteoarthritis Chronic renal failure Depression GENNARO (obstructive sleep apnea) Pneumonia Bronchitis Asthma COPD (chronic obstructive pulmonary disease) Morbid obesity HLD (hyperlipidemia) Bronchiectasis Idiopathic right ventricular dilation Thrombocytopenia Leukopenia Abnormal liver CT Anemia Anxiety Respiratory insufficiency Respiratory failure with hypoxia Colitis with rectal bleeding History of umbilical hernia History of diarrhea Arthritis Gastroesophageal reflux disease Home Medications ?Medication ?Instructions ?Recorded ?Last Taken ?Type pantoprazole 40 mg tablet,delayed 40 mg PO DAILY ACID REFLUX 12/09/18 07/12/24 History release rosuvastatin 40 mg tablet 40 mg PO QHS CHOLESTEROL 07/19/21 07/12/24 History melatonin 10 mg tablet 10 mg PO QHS SLEEP 07/16/22 07/12/24 History carvedilol 3.125 mg tablet 3.125 mg PO BID HEART #60 tabs 07/20/22 07/12/24 Rx mometasone-formoterol HFA 100 2 puff inhalation BID SHORTNESS OF 03/05/23 07/12/24 Rx mcg-5 mcg/actuation aerosol BREATH/WHEEZING #13 grams inhaler (Dulera) temazepam 30 mg capsule 30 mg PO QHS INSOMNIA 07/12/23 07/12/24 History alprazolam 0.5 mg tablet 0.5 mg PO BID anxiety 01/28/24 07/12/24 History fluoxetine 40 mg capsule 40 mg PO DAILY depression 01/28/24 07/12/24 History linaclotide 290 mcg capsule 290 mcg PO DAILY bowel function 01/28/24 07/12/24 History (Linzess) trospium 20 mg tablet 20 mg PO BID see 01/28/24 07/12/24 History ergocalciferol (vitamin D2) 1,250 1,250 mcg PO QWEEK 07/15/24 Unknown History mcg (50,000 unit) capsule trazodone 100 mg tablet 200 mg PO QHS 07/15/24 Unknown History Allergy/AdvReac Type Severity Reaction Status Date / Time house dust Allergy ITCHY EYES Verified 07/15/24 14:10 Penicillins Allergy Hives Verified 07/15/24 14:10 Seasonal Allergies: Uncoded Allergy ITCHY EYES Verified 07/15/24 14:10 Family History Father Colon cancer Mother Cancer pancreatic Surgical History History of tubal ligation History of appendectomy History of hysterectomy History of cholecystectomy Social History household members: none Smoking Status: Former smoker Tobacco: How many years used: 25 how long ago did patient quit smokin, 0.5ppd second hand exposure: Yes alcohol intake: never substance use type: does not use ROS ROS Narrative Review of Systems: Constitutional: Patient admits to fevers, chills and myalgias. Eyes: Patient admits to photophobia but she denies blurry vision or discharge from eyes. ENT: Patient admits to runny nose and sore throat but denies ear pain. Resp: Patient admits to dyspnea on exertion that progressed to shortness of breath at rest with increasingly frequent nonproductive cough. CV: Patient denies chest pain, palpitations, heart racing or lower extremity edema. GI: Patient admits to nonbloody diarrhea with nausea and bilious emesis but she denies abdominal pain. : Patient denies dysuria, hematuria or urinary frequency. MSK: Patient admits to arthralgias and myalgias. Skin: Patient denies rash, abscess, wounds or jaundice. Psych: Patient admits to heightened depression and anxiety but she denies SI or HI. Neuro: Patient admits to migraine-type headache but she denies paresthesias or focal neurological deficits. Allergy: Patient admits to mouth swelling but she denies lip swelling. Hematology: Patient denies easy bleeding or easy bruisability. Endocrinology: Patient denies polyuria, polydipsia or polyphagia. 14 point review of systems otherwise negative save for positives noted above in HPI Vital Signs Vital Signs Vital Signs: 07/15/24 14:08 07/15/24 16:08 07/15/24 16:45 Temperature 98.5 F Temperature Source Oral Pulse Rate 109 H 108 H Respiratory Rate 16 17 Blood Pressure 156/89 H 144/77 H Blood Pressure Mean 111 99 Pulse Ox 97 93 Oxygen Delivery Method Nasal Cannula Nasal Cannula Nasal Cannula Oxygen Flow Rate (L/min) 3 5 5 07/15/24 18:00 07/15/24 19:04 07/15/24 19:20 Temperature 98.1 F Temperature Source Pulse Rate 108 H 108 H 102 H Respiratory Rate 17 16 15 Blood Pressure 146/64 H 154/118 H 149/79 H Blood Pressure Mean 91 130 102 Pulse Ox 99 97 99 Oxygen Delivery Method Nasal Cannula Nasal Cannula Oxygen Flow Rate (L/min) 5 3 Weight Weight: 270 lb 4.587 oz Body Mass Index (BMI) 42.3 Results Lab / Micro Data 07/15/24 16:51 07/15/24 16:51 Labs: Laboratory Results - last 24 hr 07/15/24 16:51: WBC 7.2, RBC 3.71 L, Hgb 10.3 L, Hct 36.4 L, MCV 98.1, MCH 27.8, MCHC 28.3 L, RDW Std Deviation 50.2 H, RDW Coeff of Jaun 14.0, Plt Count 184, MPV 9.2, Immature Gran % (Auto) 0.400, Neut % (Auto) 78.2 H, Lymph % (Auto) 10.8 L, [place] % (Auto) 9.6, Eos % (Auto) 0.7, Baso % (Auto) 0.3, Absolute Neuts (auto) 5.6, Absolute Lymphs (auto) 0.77 L, Nucleated RBC % 0, PT 11.1 L, INR 0.8, APTT 21.0 L, Sodium 136, Potassium 4.4, Chloride 98, Carbon Dioxide 33.0 H, Anion Gap 5, BUN 16, Creatinine 0.83, Estim Creat Clear Calc 95.41, Est GFR (MDRD) Af Amer 90, Est GFR (MDRD) Non-Af 74, BUN/Creatinine Ratio 19.3, Glucose 157 H, Calcium 8.8 ABG Data ABG results: ABG 07/15/24 18:35 Specimen Type MARGUERITE Sample Site Not entered VBG pH 7.32 VBG pO2 32 VBG HCO3 39 H VBG Total CO2 41 H VBG O2 Sat (Calc) 53 VBG Base Excess 12 H POC Mix VBG pCO2 Pt Tmp 75.1 H* O2 Delivery Device Not entered Crit Call To/Read Back Yes Blood Gas Notified Time 18:37:08 Rhythm Strip Rhythm Strip: Sinus Tach Rate: 110 Ectopy: None (Complexes are wide. Represents a bundle branch block.) Imaging Radiology Impression Chest X-Ray 07/15/24 17:09 IMPRESSION: NO SIGNIFICANT CHANGE SINCE THE PRIOR EXAM. Reading Location: [facility] Assessment & Plan Assessment/Plan (1) Asthma exacerbation: QUALIFIERS: Asthma persistence: unspecified Asthma severity: severe Qualified Code(s): J45.901 - Unspecified asthma with (acute) exacerbation (2) Respiratory insufficiency: (3) BMI 40.0-44.9, adult: (4) Obesity hypoventilation syndrome: (5) COVID-19 long hauler: (6) GENNARO treated with BiPAP: PLAN: Plan 1. AE Asthma in the setting of persistent and poorly tolerated Long COVID and former tobacco abuse for ~25 years (quit 2007) along with stopping Dulera with recently diagnosed COVID-19 ~3 weeks ago with subsequent persistent viral illness unresponsive to multiple rounds of antibiotics and steroids - Admit to general medical floor. Continue IV Solu-Medrol begun in the ER. We will add empiric IV Rocephin and IV azithromycin in case of superimposed bacterial infection due to patient's protracted course of illness. Give supplemental vitamin D3, vitamin C and zinc to help boost immunity and hopefully speedy recovery. Check D-dimer. Give Mucinex as needed. Give acetaminophen as needed [id number] (level 1-5/10) pain or fever. Give hydrocodone-acetaminophen as needed for severe (level 6-10/10) pain. 2. [id number]-[id number] Respiratory Insufficiency with supplemental oxygen increased to 5L NC in the setting of known Obesity Hypoventilation Syndrome complicating #1 - Wean additional supplemental oxygen as tolerated. 3. Morbid Obesity; with BMI of 42.3 this admission, obesity hypoventilation syndrome and GENNARO on BiPAP with history of pulmonary hypertension plus paralyzed diaphragm and restrictive lung disease; with chronic hypoxic respiratory failure on 3L NC continuous compounding #1 & #2 - Weight loss will be recommended. Check TSH. Continue BiPAP as previous. 4. Essential Hypertension; on carvedilol - Continue carvedilol and give prn IV hydralazine for systolic blood pressure > 160 mmHg. 5. Hyperlipidemia; on rosuvastatin - Resume statin. 6. History of DVT - Noted with patient currently not on anticoagulation. Check D-dimer. 7. History of asthma with bronchiectasis; previously on Dulera - Noted. 8. History of endocarditis - Noted. 9. History of RBBB - Noted. 10. History of biventricular systolic dysfunction - Noted. 11. History of substance abuse; with alcohol and cannabis - Noted with patient denying both alcohol and cannabis abuse. 12. Overactive bladder; on Trospium - Maintain Trospium as before. 13. History of muscle spasms; on cyclobenzaprine 3 times daily as needed - Continue current management. 14. History of dementia - Stable. 15. History of migraine headaches - Stable with headache resolving after initial round of treatment with Maxalt. 16. Depression with anxiety; on fluoxetine and as needed alprazolam - Maintain current treatment. 17. History of colitis; with rectal bleeding - Noted with no reports of bleeding this admission. 18. IBS; of constipation-type on Linzess - Stable. Linzess to be resumed. 19. History of appendectomy - Noted. 20. History of cholecystectomy - Noted. 21. History of hysterectomy - Noted. 22. History of tubal ligation - Noted for the sake of completeness. 23. GERD; on pantoprazole - Continue PPI. 24. OA; with chronic pain on as needed hydrocodone-acetaminophen every 6 hours as needed - Give hydrocodone-acetaminophen prn for severe (level 6-10/10) pain. 25. DVT prophylaxis - Lovenox 40 mg sq BID. Total time: Approximately (but not less than) 75 minutes. Charges/Coding Visit Charges Inpatient E&M: 80797 Init Hosp L3
[2024-07-15] MEDS: Ondansetron 4 MG/2 ML Vial IV (20:54)
[2024-07-15 23:06] LABS: Allen Test Positive; Base Excess 12 mmol/L (-2 to +2); Bicarbonate 38.9 mmol/L (22-26); Blood Gas Specimen Type ART; Mode Not entered; O2 Delivery Device Not entered; PO2 74 mmHG (75-100); SITE L Radial; SO2 91 % (95-99); Total Carbon Dioxide 42 mmol/L; pH 7.25 (7.35-7.45)
[2024-07-15] MEDS: 0.9% Normal Saline (1000mL) 1,000 ML 70 ML IV (23:55)
[2024-07-15] MEDS: Ceftriaxone 1 GM/50 ML BAG IV (23:55)
[2024-07-15] MEDS: 0.9% Saline Lock 10 ML Syringe IV (23:56)
[2024-07-16] VITALS (10 sets, daily range): BP systolic 144–147; BP diastolic 86–103; PULSE 80–105; RESP 16–23; TEMP 36.6–37.2; O2SAT 97–99; BMI 41.6
[2024-07-16 00:07] LABS: Alcohol, Blood (Medical)-Serum < 3.0 mg/dL
[2024-07-16] MEDS: MELATONIN 10 MG TABLET PO ×2 (00:07→23:55)
[2024-07-16] MEDS: Atorvastatin Calcium 80 MG Tablet PO ×2 (00:07→23:55)
[2024-07-16] MEDS: Rizatriptan Benzoate 5 MG Tablet PO (00:07)
[2024-07-16] MEDS: Temazepam 15 MG Capsule 30 MG PO ×2 (00:07→23:55)
[2024-07-16] MEDS: Enoxaparin 40 MG/0.4 ML Syringe SC ×3 (00:08→23:47)
[2024-07-16 00:13] LABS: Vitamin B12 301 pg/mL (211-911)
[2024-07-16] MEDS: MethylPREDNISolone 125 MG/2 ML Vial IV (00:22)
[2024-07-16] MEDS: 0.9% Saline Lock 10 ML Syringe IV ×2 (00:22→23:51)
[2024-07-16 00:24] LABS: Thyroid Stim Hormone (TSH) 0.474 uIU/mL (0.358-3.740)
[2024-07-16] MEDS: Azithromycin 500 MG in 0.9% Normal Saline (250mL Bag) 250 ML 255 MG IV (00:53)
--- NOTE | 2024-07-16 00:54 | CPS ---
Critical ABG values, Dr. bryant aware.
[2024-07-16 01:27] LABS: Allen Test Positive; Base Excess 15 mmol/L (-2 to +2); Bicarbonate 41.7 mmol/L (22-26); Blood Gas Specimen Type ART; Mode Not entered; O2 Delivery Device BiPAP; PEEP 10; PIP 16; PO2 87 mmHG (75-100); RR 12; SITE L Radial; SO2 95 % (95-99); Total Carbon Dioxide 44 mmol/L; pCO2 84.3 mmHg (35-45)
--- NOTE | 2024-07-16 01:53 | CPS ---
Critical CO2 value, Dr. Eaton aware.
[2024-07-16 04:43] LABS: Absolute Lymphocyte Count 0.32 X10^3/uL (0.83-4.51); Absolute Neutrophil Count 4.3 X10^3/uL (2.0-7.7); Eosinophil# 0.01 X10^3/uL; Eosinophils% 0.2 % (0-5); Hematocrit 32.5 % (37-47); Hemoglobin 9.5 g/dL (12.0-15.0); Lymphocyte # 0.32 X10^3/ul (0.83-4.51); Lymphocyte % 6.7 % (19-41); Mean Corp Hgb Conc 29.2 g/dL (32-36); Mean Corpuscular Hgb 28.3 pg (27.0-32.0); Mean Corpuscular Volume 96.7 fL (81-99); Mean Platelet Vol. 9.3 fl (6.2-12.0); Monocyte# 0.16 X10^3/uL; Monocyte% 3.3 % (0-10); NRBC Flagged by Analyzer 0 % (0-5); Neutrophil % 89.4 % (47-70); POSITIVE DIFFERENTIAL YES; Platelet Count 159 K/mm3 (150-450); RBC Distribution Width SD 49.1 fl (35.1-43.9); Red Blood Count 3.36 M/mm3 (4.2-5.4); White Blood Count 4.8 K/mm3 (4.4-11.0)
[2024-07-16 04:59] LABS: D-Dimer Quantitative (DVT/PE) 0.27 FEU/ug/m (0.27-0.49)
[2024-07-16 05:02] LABS: AST(SGOT) 12 U/L (15-37); Alanine Aminotransfer ALT/SGPT 16 U/L (13-56); Albumin, Serum 3.1 g/dL (3.2-5.0); Alkaline Phosphatase 83 U/L (45-117); Anion Gap 3 (5-15); BUN 14 mg/dL (7-18); BUN/Creat Ratio 21.8 RATIO (10-20); Calcium,Total 8.9 mg/dL (8.5-10.1); Chloride 100 mmol/L (98-107); Creatinine, Serum 0.64 mg/dL (0.55-1.02); EST Glomerular Filtration Rate 100 mL/min (>60); Est Glom Filt Rate - Afr Amer 121 mL/min (>60); Estimated Creatinine Clearance 123.71 ml/min; Glucose 181 mg/dL (74-106); Magnesium 2.3 mg/dL (1.6-2.6); Phosphorus 1.6 mg/dL (2.5-4.9); Protein, Total 6.1 g/dL (6.4-8.2); Sodium Level 138 mmol/L (136-145)
[2024-07-16 05:15] LABS: Allen Test Positive; Base Excess 14 mmol/L (-2 to +2); Bicarbonate 39.5 mmol/L (22-26); Blood Gas Specimen Type ART; Mode Not entered; O2 Delivery Device BiPAP; PEEP 10; PIP 24; PO2 77 mmHG (75-100); RR 20; SITE L Radial; SO2 93 % (95-99); Total Carbon Dioxide 42 mmol/L; pCO2 75.8 mmHg (35-45); pH 7.33 (7.35-7.45)
--- NOTE | 2024-07-16 05:42 | CPS ---
Critical ABG values, Dr. Eaton aware.
[2024-07-16] MEDS: Sodium Phosphate/Na Biphos 30 MMOL in 0.9% Normal Saline (250mL Bag) 250 ML 62.5 MMOL IV (07:48)
[2024-07-16] MEDS: ALPRAZolam 0.5 MG Tablet PO ×2 (08:12→23:47)
[2024-07-16] MEDS: HYDROcodone Bitartrate/Apap 5/325 Tablet PO ×2 (08:13→14:26)
[2024-07-16] MEDS: Ascorbic Acid 500 MG Tablet 1000 MG PO ×2 (08:13→18:05)
[2024-07-16] MEDS: Tolterodine Tartrate 2 MG CAP.SA PO (08:13)
[2024-07-16] MEDS: Carvedilol 3.125 MG TABLET PO ×2 (08:13→18:05)
[2024-07-16] MEDS: Cholecalciferol (Vit D3) 125 MCG CAPSULE (5,000 UNITS) PO (08:14)
[2024-07-16] MEDS: Zinc Sulfate 50 mg zinc (220 mg) ORAL capsule PO (08:14)
[2024-07-16] MEDS: Pantoprazole Sodium 40 MG Tablet PO (08:14)
[2024-07-16] MEDS: Fluoxetine HCl 40 MG CAPSULE PO (08:14)
--- NOTE | 2024-07-16 09:50 | PCM.PN.HOSP ---
Subjective Subjective Currently on 5 L nasal cannula still little bit tachycardic and tachypneic Objective Data Objective Data Vital Signs: Vital Signs Temp Pulse Resp BP Pulse Ox O2 Del Method O2 Flow Rate 98.7 F 103 H 19 H 144/103 H 98 Nasal Cannula 5 07/16/24 08:22 07/16/24 08:22 07/16/24 08:22 07/16/24 08:22 07/16/24 08:22 07/16/24 08:22 07/16/24 08:22 FiO2 30 07/16/24 07:21 Oxygen Flow Rate (L/min) 5 Oxygen Delivery Method Nasal Cannula Weight: 274 lb 11.135 oz Body Mass Index (BMI) 41.6 Intake & Output: Intake and Output for Last 24 Hours 07/15/24 07/16/24 07/17/24 03:59 03:59 03:59 Intake Total 405 / 405 Output Total 170 / 170 Balance 405 / 405 -170 / -170 Lab / Micro Data 07/16/24 04:34 07/16/24 04:34 Labs: Laboratory Results - last 24 hr 07/15/24 16:51: WBC 7.2, RBC 3.71 L, Hgb 10.3 L, Hct 36.4 L, MCV 98.1, MCH 27.8, MCHC 28.3 L, RDW Std Deviation 50.2 H, RDW Coeff of Jaun 14.0, Plt Count 184, MPV 9.2, Immature Gran % (Auto) 0.400, Neut % (Auto) 78.2 H, Lymph % (Auto) 10.8 L, [place] % (Auto) 9.6, Eos % (Auto) 0.7, Baso % (Auto) 0.3, Absolute Neuts (auto) 5.6, Absolute Lymphs (auto) 0.77 L, Nucleated RBC % 0, PT 11.1 L, INR 0.8, APTT 21.0 L, Sodium 136, Potassium 4.4, Chloride 98, Carbon Dioxide 33.0 H, Anion Gap 5, BUN 16, Creatinine 0.83, Estim Creat Clear Calc 95.41, Est GFR (MDRD) Af Amer 90, Est GFR (MDRD) Non-Af 74, BUN/Creatinine Ratio 19.3, Glucose 157 H, Calcium 8.8, Folate 11.00, TSH 0.474 07/15/24 23:30: B-Natriuretic Peptide 124.0 H, Vitamin B12 301, Ethyl Alcohol < 3.0 07/16/24 04:34: WBC 4.8, RBC 3.36 L, Hgb 9.5 L, Hct 32.5 L, MCV 96.7, MCH 28.3, MCHC 29.2 L, RDW Std Deviation 49.1 H, RDW Coeff of Jaun 14.0, Plt Count 159, MPV 9.3, Immature Gran % (Auto) 0.400, Neut % (Auto) 89.4 H, Lymph % (Auto) 6.7 L, [place] % (Auto) 3.3, Eos % (Auto) 0.2, Baso % (Auto) 0.0, Absolute Neuts (auto) 4.3, Absolute Lymphs (auto) 0.32 L, Nucleated RBC % 0, D-Dimer Quant (PE/DVT) 0.27, Sodium 138, Potassium 5.0, Chloride 100, Carbon Dioxide 35.0 H, Anion Gap 3 L, BUN 14, Creatinine 0.64, Estim Creat Clear Calc 123.71, Est GFR (MDRD) Af Amer 121, Est GFR (MDRD) Non-Af 100, BUN/Creatinine Ratio 21.8 H, Glucose 181 H, Calcium 8.9, Phosphorus 1.6 L, Magnesium 2.3, Total Bilirubin 1.00, AST 12 L, ALT 16, Alkaline Phosphatase 83, Total Protein 6.1 L, Albumin 3.1 L, Globulin 3.0, Albumin/Globulin Ratio 1.0 Micro: Microbiology 07/15/24 23:20 Mucosa - Nasopharyngeal Respiratory Panel (PCR) - Final ABG Data ABG results: ABG 07/15/24 07/15/24 07/16/24 18:35 23:03 01:24 Specimen Type MARGUERITE ART ART Sample Site Not entered L Radial L Radial pH 7.25 L 7.30 L Bicarbonate Actual 38.9 H 41.7 H Total CO2 42 44 Base Excess 12 H 15 H O2 Saturation 91 L 95 O2 % 3.0 30.0 ABG pCO2 88.0 H* 84.3 H* ABG pO2 74 L 87 Arian Test Positive Positive VBG pH 7.32 VBG pO2 32 VBG HCO3 39 H VBG Total CO2 41 H VBG O2 Sat (Calc) 53 VBG Base Excess 12 H POC Mix VBG pCO2 Pt Tmp 75.1 H* Respiration Rate 12 O2 Delivery Device Not entered Not entered BiPAP Vent Mode Not entered Not entered Tidal Volume POC PEEP 10 Peak Inspir Pressure 16 Crit Call To/Read Back Yes Yes Yes Blood Gas Notified Time 18:37:08 07/16/24 05:11 Specimen Type ART Sample Site L Radial pH 7.33 L Bicarbonate Actual 39.5 H Total CO2 42 Base Excess 14 H O2 Saturation 93 L O2 % 30.0 ABG pCO2 75.8 H* ABG pO2 77 Arian Test Positive VBG pH VBG pO2 VBG HCO3 VBG Total CO2 VBG O2 Sat (Calc) VBG Base Excess POC Mix VBG pCO2 Pt Tmp Respiration Rate 20 O2 Delivery Device BiPAP Vent Mode Not entered Tidal Volume 550.0 POC PEEP 10 Peak Inspir Pressure 24 Crit Call To/Read Back Yes Blood Gas Notified Time Radiography Diagnostic Testing: Radiology Impression Chest X-Ray 07/15/24 17:09 IMPRESSION: NO SIGNIFICANT CHANGE SINCE THE PRIOR EXAM. Reading Location: [facility] Rhythm Strip Rhythm Strip: Sinus Tach Rate: 110 Ectopy: None (Complexes are wide. Represents a bundle branch block.) Physical Exam Narrative General: Alert, Oriented x3, Cooperative, No apparent distress HEENT: Atraumatic, PERRLA, EOMI, Normocephalic Oral: Moist Mucosa Neck: Supple, No JVD Lungs: Diminished, Normal air movement, No rhonchi, No wheeze, No rales Cardiovascular: Regular rate, Regular Rhythm, Normal S1, Normal S2, No murmurs Abdomen: Soft, Non Tender, Non-Distended, No Hepato-splenomegaly Extremities: No edema, Capillary Refill Less than 3 Seconds Skin: No rashes, No breakdown Musculoskeletal: No Tenderness to Palpation of Joints or Extremities Neurological: No focal neurological deficits, Motor Exam 5/5 strength throughout, Sensory exam intact to light touch and pain Psych/Mental Status: Flat Assessment & Plan Assessment/Plan (1) Asthma exacerbation: QUALIFIERS: Asthma severity: severe Asthma persistence: unspecified Qualified Code(s): J45.901 - Unspecified asthma with (acute) exacerbation (2) Respiratory insufficiency: (3) Obesity hypoventilation syndrome: (4) COVID-19 long hauler: (5) GENNARO treated with BiPAP: PLAN: Plan 1. Acute asthma exacerbation in the setting of long COVID with acute on chronic respiratory insufficiency ? Continue with inhalers and steroids ? Transition antibiotics to Levaquin ? She has not had any bowel movements yet so we will discontinue stool studies, if she does develop diarrhea can reorder these test at that time ? She is normally on 3 L nasal cannula, during admission she needed 5 L with BiPAP at night which is normal for her 2. Essential HTN/HLD ? Continue with her home blood pressure medications ? Will monitor make adjustments as necessary ? Continue with Crestor 3. Anxiety/depression ? Stable ? Continue with her home medications ? Will give her a one-time dose of Ativan as she did appear anxious this morning while on BiPAP with her respiratory status 4. GERD ? Stable ? Continue with PPI DVT: Lovenox Charges/Coding Visit Charges Inpatient E&M: 58689 Subs Hosp L2
--- NOTE | 2024-07-16 13:00 | CASEMGMT ---
RN CM [employer]IN[employer] CM?to room to meet with patient for initial transition planning/care coordination assessment. RN CM?introduced self and role at [facility]. Pt voices understanding and consents to assessment?at this time. Pt sitting up in chair in no distress at this time. Pt is A/O at this time and answers all questions appropriately. Care providers, pharmacy, and demographics verified/updated at this time. Strata:?3 PCP: Dr Mariscal Specialists: [facility], Dr Winkler-nephrology. Pt also [facility] Preferred [facility]acy: [facility] Insurance: VI Sharma Prescription Benefit: Yes Living Will/HPOA: Pt's ex-, Seth Felder, is pt's HCPOA, but she would like to complete new documents. She states she would like to name her sisters as her agents. Mecca HAYNES, made aware. Ex-husbands phone # is: [phone]. Pt states she is aware he would be medical decision maker until she completes new HCPOA document, as he is her HCPOA and she states she is okay with that for now, but does want to change this. She was agreeable to providing ex-husbands phone #, but does not want him added to her contact list at this time. LNOK: Sisters, Laura and Carlita. Pt has 2 biological children, but states they are estranged and she has not seen them for about 3 yrs. Living Arrangements: Lives alone in one-story apt w/no steps to enter. Independent w/ADL's and IADL's. Transportation:?Pt states drives self and states no transportation concerns at this time. DME: States has the following DME: O2 through [employer] @ 3 L/M continuous and 2 L/M bleed-in via PAP. She has a concentrator and portability. She has a portable tank in her car, but her car is @ her home. She states will try to find someone who can bring her car and portable O2 tank to the hospital @ discharge. She also has a pulse ox @ home. She has a walker, rollator, shower chair, and BSC all available, but does not use them. Pt states no need for further DME at this time. HHC/SNF: Pt has been to a SNF in [place] and also [place]. She has had HHC in the past. She declines wanting HHC or OP therapy @ [place]. Pt wishes to return home and states has no concerns with going home at time of discharge. Pt states does not smoke or drink ETOH. CM?to follow for any increase in home oxygen needs and any further discharge planning/needs. Pt voices no further concerns/needs at this time. Advised pt to ask for CM?if any further questions/concerns/needs arise. Voices understanding. PLAN: Home Follow for any increase in home O2 Cheryl LYNCHN RN CM
[2024-07-16] MEDS: levoFLOXacin 750 MG Tablet PO (13:45)
--- NOTE | 2024-07-16 16:33 | CASEMGMT ---
Social Work SW met with pt and assisted in completing living will and healthcare power of divorce attorney naming her sister Laura Ureña. Copy placed on pt chart and original given to pt. BERNIE Andujar
[2024-07-16] MEDS: Acetaminophen 325 MG Tablet 650 MG PO (23:48)
[2024-07-17] VITALS (8 sets, daily range): BP systolic 142–147; BP diastolic 70–98; PULSE 88–105; RESP 16–20; TEMP 36.6–37.1; O2SAT 86–100; BMI 41.6
[2024-07-17] MEDS: cycloBENZAPRine HCl 5 MG TABLET PO (02:01)
[2024-07-17] MEDS: levoFLOXacin 750 MG Tablet PO (06:02)
[2024-07-17 06:57] LABS: Absolute Lymphocyte Count 0.31 X10^3/uL (0.83-4.51); Absolute Neutrophil Count 4.6 X10^3/uL (2.0-7.7); Hematocrit 33.5 % (37-47); Hemoglobin 9.8 g/dL (12.0-15.0); Lymphocyte # 0.31 X10^3/ul (0.83-4.51); Lymphocyte % 6.1 % (19-41); Mean Corp Hgb Conc 29.3 g/dL (32-36); Mean Corpuscular Hgb 28.4 pg (27.0-32.0); Mean Corpuscular Volume 97.1 fL (81-99); Mean Platelet Vol. 9.9 fl (6.2-12.0); Monocyte# 0.15 X10^3/uL; NRBC Flagged by Analyzer 0 % (0-5); Neutrophil # 4.58 X10^3/uL (2.7-7.7); Neutrophil % 90.1 % (47-70); POSITIVE DIFFERENTIAL YES; Platelet Count 199 K/mm3 (150-450); RBC Distribution Width CV 13.6 % (11.6-14.6); RBC Distribution Width SD 48.4 fl (35.1-43.9); Red Blood Count 3.45 M/mm3 (4.2-5.4); White Blood Count 5.1 K/mm3 (4.4-11.0)
[2024-07-17 07:46] LABS: Anion Gap 3 (5-15); BUN 20 mg/dL (7-18); BUN/Creat Ratio 23.8 RATIO (10-20); Calcium,Total 9.6 mg/dL (8.5-10.1); Chloride 100 mmol/L (98-107); Creatinine, Serum 0.84 mg/dL (0.55-1.02); EST Glomerular Filtration Rate 73 mL/min (>60); Est Glom Filt Rate - Afr Amer 88 mL/min (>60); Estimated Creatinine Clearance 96.71 ml/min; Glucose 233 mg/dL (74-106); Magnesium 2.5 mg/dL (1.6-2.6); Phosphorus 2.8 mg/dL (2.5-4.9); Potassium 4.9 mmol/L (3.5-5.1); Sodium Level 138 mmol/L (136-145)
[2024-07-17] MEDS: Fluoxetine HCl 40 MG CAPSULE PO (08:53)
[2024-07-17] MEDS: Cholecalciferol (Vit D3) 125 MCG CAPSULE (5,000 UNITS) PO (08:54)
[2024-07-17] MEDS: Ascorbic Acid 500 MG Tablet 1000 MG PO (08:54)
[2024-07-17] MEDS: Tolterodine Tartrate 2 MG CAP.SA PO (08:54)
[2024-07-17] MEDS: Carvedilol 3.125 MG TABLET PO (08:54)
[2024-07-17] MEDS: Zinc Sulfate 50 mg zinc (220 mg) ORAL capsule PO (08:54)
[2024-07-17] MEDS: Pantoprazole Sodium 40 MG Tablet PO (08:55)
[2024-07-17] MEDS: Enoxaparin 40 MG/0.4 ML Syringe SC (08:55)
--- NOTE | 2024-07-17 12:16 | PCM.PN.HOSP ---
Subjective Subjective Doing well, maintaining oxygen saturations on her baseline home O2 of 3 L Objective Data Objective Data Vital Signs: Vital Signs Temp Pulse Resp BP Pulse Ox O2 Del Method O2 Flow Rate 98.7 F 102 H 16 144/97 H 99 Nasal Cannula 3 07/17/24 08:00 07/17/24 08:00 07/17/24 08:00 07/17/24 08:00 07/17/24 08:00 07/17/24 11:06 07/17/24 11:06 FiO2 30 07/16/24 22:58 Oxygen Flow Rate (L/min) 3 Oxygen Delivery Method Nasal Cannula Weight: 274 lb 14.663 oz Body Mass Index (BMI) 41.6 Intake & Output: Intake and Output for Last 24 Hours 07/16/24 07/17/24 07/18/24 03:59 03:59 03:59 Intake Total 405 / 405 3260 / 3260 Output Total 950 / 950 400 / 400 Balance 405 / 405 2310 / 2310 -400 / -400 Lab / Micro Data 07/17/24 06:00 07/17/24 06:00 Labs: Laboratory Results - last 24 hr 07/17/24 06:00: WBC 5.1, RBC 3.45 L, Hgb 9.8 L, Hct 33.5 L, MCV 97.1, MCH 28.4, MCHC 29.3 L, RDW Std Deviation 48.4 H, RDW Coeff of Jaun 13.6, Plt Count 199, MPV 9.9, Immature Gran % (Auto) 0.800, Neut % (Auto) 90.1 H, Lymph % (Auto) 6.1 L, [place] % (Auto) 3.0, Eos % (Auto) 0.0, Baso % (Auto) 0.0, Absolute Neuts (auto) 4.6, Absolute Lymphs (auto) 0.31 L, Nucleated RBC % 0, Sodium 138, Potassium 4.9, Chloride 100, Carbon Dioxide 35.0 H, Anion Gap 3 L, BUN 20 H, Creatinine 0.84, Estim Creat Clear Calc 96.71, Est GFR (MDRD) Af Amer 88, Est GFR (MDRD) Non-Af 73, BUN/Creatinine Ratio 23.8 H, Glucose 233 H, Calcium 9.6, Phosphorus 2.8, Magnesium 2.5 Micro: Microbiology 07/15/24 23:20 Mucosa - Nasopharyngeal Respiratory Panel (PCR) - Final Rhythm Strip Rhythm Strip: Sinus Tach Rate: 110 Ectopy: None (Complexes are wide. Represents a bundle branch block.) Physical Exam Narrative General: Alert, Oriented x3, Cooperative, No apparent distress HEENT: Atraumatic, PERRLA, EOMI, Normocephalic Oral: Moist Mucosa Neck: Supple, No JVD Lungs: Diminished, Normal air movement, No rhonchi, No wheeze, No rales Cardiovascular: Regular rate, Regular Rhythm, Normal S1, Normal S2, No murmurs Abdomen: Soft, Non Tender, Non-Distended, No Hepato-splenomegaly Extremities: No edema, Capillary Refill Less than 3 Seconds Skin: No rashes, No breakdown Musculoskeletal: No Tenderness to Palpation of Joints or Extremities Neurological: No focal neurological deficits, Motor Exam 5/5 strength throughout, Sensory exam intact to light touch and pain Psych/Mental Status: Flat Assessment & Plan Assessment/Plan (1) Asthma exacerbation: QUALIFIERS: Asthma severity: severe Asthma persistence: unspecified Qualified Code(s): J45.901 - Unspecified asthma with (acute) exacerbation (2) Respiratory insufficiency: (3) Obesity hypoventilation syndrome: (4) COVID-19 long hauler: (5) GENNARO treated with BiPAP: PLAN: Plan 1. Acute asthma exacerbation in the setting of long COVID with acute on chronic respiratory insufficiency ? Continue with inhalers and steroids ? Transition antibiotics to Levaquin ? She is normally on 3 L nasal cannula, during admission she needed 5 L with BiPAP at night which is normal for her ? Will obtain an ambulatory pulse ox 2. Essential HTN/HLD ? Continue with her home blood pressure medications ? Will monitor make adjustments as necessary ? Continue with Crestor 3. Anxiety/depression ? Stable ? Continue with her home medications ? Will give her a one-time dose of Ativan as she did appear anxious this morning while on BiPAP with her respiratory status 4. GERD ? Stable ? Continue with PPI DVT: Lovenox Charges/Coding Visit Charges Inpatient E&M: 74210 Subs Hosp L2
[2024-07-17] MEDS: HYDROcodone Bitartrate/Apap 5/325 Tablet PO (13:52)
[2024-07-17] MEDS: Furosemide 20 MG/2 ML VIAL IV (13:52)
[2024-07-17] MEDS: 0.9% Saline Lock 10 ML Syringe IV (13:53)
--- NOTE | 2024-07-17 15:45 | DCINST_ITS ---
Discharge Instructions Diet Discharge Diet: Low fat / Low cholesterol [place] O2, CPAP, BIPAP needs RN Home O2 Qualification: Home O2 Qualification: Is the patient on home oxygen Yes 07/17/24 09:39 Home O2 Qualification: AT REST 1-Pulse Ox at rest 97 07/17/24 09:39 1- Oxygen flow rate at rest 4 07/17/24 09:39 Home O2 Qualification: WITH AMBULATION 1- Pulse Ox with ambulation 86 07/17/24 09:39 1- Oxygen Flow Rate with 4 07/17/24 09:39 ambulation 2- Pulse Ox with ambulation 92 07/17/24 09:39 2- Oxygen Flow Rate with 6 07/17/24 09:39 ambulation Home O2 Discharge instructions: No Dressing / Incision Discharge Activity: Return to Normal Activity Dressing / Incision Call your doctor if you observe: Fever of 101 or Higher, Shortness of breath, Dizziness, Fainting spells, Swelling in the ankles, Chest pain and Increased palpitations (irregular heartbeat) Follow Up Care Test Results: Test results from this visit will be discussed in further detail at your follow- up appointment, if applicable. Discharge Plan Admission Admit Date/Time: 07/15/24 21:42 Attending Provider: Thong Sultana Primary Care Provider: Corin Mariscal Consulting Providers: Pedro Ervin Discharge Orders/Prescriptions Prescriptions: New prednisone 10 mg tablet 10 mg PO DAILY Qty: 32 0RF Rx Instructions: Take 4 tablets daily for 3 days then 3 tablets daily for 3 days then 2 tablets daily for 3 days then 1 tablet daily for 3 days then half tablet daily for 4 days levofloxacin 750 mg Tablet 750 mg PO DAILY 5 Days Qty: 5 0RF albuterol sulfate 90 mcg/actuation HFA aerosol inhaler 1 puff inhalation Q6H PRN (Reason: shortness of breath or wheezing) Qty: 6.7 0RF Continued Dulera 100-5 mcg/actuation HFA aerosol inhaler 2 puff inhalation BID Qty: 13 3RF pantoprazole 40 MG tablet 40 mg PO DAILY rosuvastatin 40 mg Tablet 40 mg PO QHS melatonin 10 mg Tablet 10 mg PO QHS carvedilol 3.125 mg Tablet 3.125 mg PO BID Qty: 60 0RF temazepam 30 mg capsule 30 mg PO QHS alprazolam 0.5 mg tablet 0.5 mg PO BID fluoxetine 40 mg capsule 40 mg PO DAILY Linzess 290 mcg capsule 290 mcg PO DAILY trospium 20 mg tablet 20 mg PO BID ergocalciferol (vitamin D2) 1,250 mcg (50,000 unit) capsule 1,250 mcg PO QWEEK trazodone 100 mg tablet 200 mg PO QHS Referrals / Follow Up: Corin Mariscal MD [Primary Care Provider] - Within 1 Week Disposition Disposition (needs filled in before D/C Order can be placed): Home, Self Care
--- NOTE | 2024-07-17 16:32 | CASEMGMT ---
SIMON CM NOTE: Per Ashlyn MONTES, home O2 amb testing was completed again this afternoon and pt does not qualify for more than her baseline home O2 of 3 L/M contin. Cheryl BSN RN CM
--- NOTE | 2024-07-17 17:13 | PCM.DC.SUM ---
Providers Date of Admission: 07/15/24 Primary Care Physician: Corin Mariscal MD Reason For Visit: AE ASTHMA, LONG COVID, DIARRHEA AND OHS Diagnosis Discharge Diagnosis (1) Asthma exacerbation: Status: Acute Code(s): J45.901 - Unspecified asthma with (acute) exacerbation Qualifiers: Asthma severity: severe Asthma persistence: unspecified Qualified Code(s): J45.901 - Unspecified asthma with (acute) exacerbation (2) Respiratory insufficiency: Status: Acute Code(s): R06.89 - Other abnormalities of breathing (3) Obesity hypoventilation syndrome: Status: Acute Code(s): E66.2 - Morbid (severe) obesity with alveolar hypoventilation (4) COVID-19 long hauler: Status: Acute Code(s): U09.9 - Post COVID-19 condition, unspecified (5) GENNARO treated with BiPAP: Status: Acute Code(s): G47.33 - Obstructive sleep apnea (adult) (pediatric) Medications at Discharge Home Medications pantoprazole 40 mg tablet,delayed release 40 mg PO DAILY ACID REFLUX 12/09/18 rosuvastatin 40 mg tablet 40 mg PO QHS CHOLESTEROL 07/19/21 melatonin 10 mg tablet 10 mg PO QHS SLEEP 07/16/22 carvedilol 3.125 mg tablet 3.125 mg PO BID HEART #60 tabs 07/20/22 mometasone-formoterol HFA 100 mcg-5 mcg/actuation aerosol inhaler (Dulera) 2 puff inhalation BID SHORTNESS OF BREATH/WHEEZING #13 grams 03/05/23 temazepam 30 mg capsule 30 mg PO QHS INSOMNIA 07/12/23 alprazolam 0.5 mg tablet 0.5 mg PO BID anxiety 01/28/24 fluoxetine 40 mg capsule 40 mg PO DAILY depression 01/28/24 linaclotide 290 mcg capsule (Linzess) 290 mcg PO DAILY bowel function 01/28/24 trospium 20 mg tablet 20 mg PO BID see 01/28/24 ergocalciferol (vitamin D2) 1,250 mcg (50,000 unit) capsule 1,250 mcg PO QWEEK 07/15/24 trazodone 100 mg tablet 200 mg PO QHS 07/15/24 albuterol sulfate 90 mcg/actuation aerosol inhaler 1 puff inhalation Q6H PRN shortness of breath or wheezing #6.7 grams 07/17/24 levofloxacin 750 mg tablet 750 mg PO DAILY 5 days #5 tabs 07/17/24 prednisone 10 mg tablet 10 mg PO DAILY #32 tabs 07/17/24 Hospital Course Operations None Procedures None Summary of Care Provided Minutes Spent on Discharge: 31 Hospital Course: Per HPI: ALFIE HOGAN, is a 63 F with a past medical history of essential hypertension; on carvedilol, hyperlipidemia; on rosuvastatin, former tobacco abuse for ~25 years (quit 2007), morbid obesity; with BMI of 42.3 this admission, obesity hypoventilation syndrome; with GENNARO on BiPAP, history of pulmonary hypertension with paralyzed diaphragm and restrictive lung disease; with chronic hypoxic respiratory failure on 3L NC continuous, history of DVT; currently not on anticoagulation, history of asthma with bronchiectasis; previously on Dulera with patient stopping this agent because she did not think she needed it, history of endocarditis, history of RBBB, history of biventricular systolic dysfunction, history of substance abuse; with alcohol and cannabis, overactive bladder; on Trospium, history of muscle spasms; on cyclobenzaprine 3 times daily as needed, history of dementia, history of migraine headaches, depression with anxiety; on fluoxetine and as needed alprazolam, history of colitis; with rectal bleeding, IBS; of constipation-type on Linzess, history of appendectomy, history of cholecystectomy, history of hysterectomy, history of tubal ligation, GERD; on pantoprazole, OA; with chronic pain on as needed hydrocodone-acetaminophen every 6 hours as needed and recently diagnosed COVID-19 ~3 weeks ago with subsequent persistent viral illness consistent with Long COVID who presents to [facility] ER complaining of headache, body aches and persistent flulike symptoms. Ms. Hogan reports her symptoms have been persistent and progressively worsening since she was first diagnosed with COVID-19 in spite of being treated with 2 different rounds of antibiotics with clindamycin and doxycycline and 3 different rounds of steroids. She states she has received no relief from this treatment with continued intermittent fevers, migraine-type headaches and nausea with bilious emesis. She admits to frequent nonproductive cough and dyspnea on exertion that has now progressed to shortness of breath at rest with worsening depression and anxiety. She admits to associated nonbloody diarrhea but she denies blurry vision, dysuria, arthralgias, back pain or rash. In the ER she was noted to have VBG that revealed respiratory acidosis with pH 7.32 and POC mix 75.1 mmHg due to suspected AE Asthma in the setting of persistent and poorly tolerated Long COVID complicated by clinical evidence of [id number] Respiratory Insufficiency with supplemental oxygen increased to 5L NC in the setting of known Obesity Hypoventilation Syndrome and she was then admitted to the general medical floor for ongoing care for a stay that is expected to extend beyond 2 midnights. Hospital Course: 1. Acute asthma exacerbation in the setting of long COVID with acute on chronic respiratory insufficiency ? Continue with inhalers and steroids ? Transition antibiotics to Levaquin ? She is normally on 3 L nasal cannula, during admission she needed 5 L with BiPAP at night which is normal for her ? Will obtain an ambulatory pulse ox 07/17/2024: This morning showed an ambulatory pulse ox demonstrating a need for 6 L of ambulation so she was given a dose of Lasix given her respiratory issues and on repeat ambulation she was able to ambulate on 3 L nasal cannula which is her baseline. I discussed with her the possibility for discharge today she expressed understanding the risk and benefits of going home and would like to go today. Will provide her with an albuterol inhaler as well as a steroid taper and Levaquin for 5 days 2. Essential HTN/HLD ? Continue with her home blood pressure medications ? Will monitor make adjustments as necessary ? Continue with Crestor 3. Anxiety/depression ? Stable ? Continue with her home medications ? Will give her a one-time dose of Ativan as she did appear anxious this morning while on BiPAP with her respiratory status 4. GERD ? Stable ? Continue with PPI Physical Exam Narrative General: Alert, Oriented x3, Cooperative, No apparent distress HEENT: Atraumatic, PERRLA, EOMI, Normocephalic Oral: Moist Mucosa Neck: Supple, No JVD Lungs: Diminished, Normal air movement, No rhonchi, No wheeze, No rales Cardiovascular: Regular rate, Regular Rhythm, Normal S1, Normal S2, No murmurs Abdomen: Soft, Non Tender, Non-Distended, No Hepato-splenomegaly Extremities: No edema, Capillary Refill Less than 3 Seconds Skin: No rashes, No breakdown Musculoskeletal: No Tenderness to Palpation of Joints or Extremities Neurological: No focal neurological deficits, Motor Exam 5/5 strength throughout, Sensory exam intact to light touch and pain Psych/Mental Status: Normal affect, appropriate Weight / BMI Weight Weight: 274 lb 14.663 oz Body Mass Index (BMI) 41.6 ABG / Lab / Microbiology Data 07/17/24 06:00 07/17/24 06:00 Laboratory: Laboratory Results - last 24 hr 07/17/24 06:00: WBC 5.1, RBC 3.45 L, Hgb 9.8 L, Hct 33.5 L, MCV 97.1, MCH 28.4, MCHC 29.3 L, RDW Std Deviation 48.4 H, RDW Coeff of Jaun 13.6, Plt Count 199, MPV 9.9, Immature Gran % (Auto) 0.800, Neut % (Auto) 90.1 H, Lymph % (Auto) 6.1 L, [place] % (Auto) 3.0, Eos % (Auto) 0.0, Baso % (Auto) 0.0, Absolute Neuts (auto) 4.6, Absolute Lymphs (auto) 0.31 L, Nucleated RBC % 0, Sodium 138, Potassium 4.9, Chloride 100, Carbon Dioxide 35.0 H, Anion Gap 3 L, BUN 20 H, Creatinine 0.84, Estim Creat Clear Calc 96.71, Est GFR (MDRD) Af Amer 88, Est GFR (MDRD) Non-Af 73, BUN/Creatinine Ratio 23.8 H, Glucose 233 H, Calcium 9.6, Phosphorus 2.8, Magnesium 2.5 Microbiology: Microbiology 07/15/24 23:20 Mucosa - Nasopharyngeal Respiratory Panel (PCR) - Final D/C Instructions Discharge Diet: Low fat / Low cholesterol Call your doctor if you observe: Fever of 101 or Higher, Shortness of breath, Dizziness, Fainting spells, Swelling in the ankles, Chest pain and Increased palpitations (irregular heartbeat) DC O2, CPAP, BIPAP Needs RN Home O2 Qualification: Home O2 Qualification: Is the patient on home oxygen Yes 07/17/24 16:33 Home O2 Qualification: AT REST 1-Pulse Ox at rest 100 07/17/24 16:33 1- Oxygen flow rate at rest 3 07/17/24 16:33 Home O2 Qualification: WITH AMBULATION 1- Pulse Ox with ambulation 96 07/17/24 16:33 1- Oxygen Flow Rate with 3 07/17/24 16:33 ambulation 2- Pulse Ox with ambulation 92 07/17/24 09:39 2- Oxygen Flow Rate with 6 07/17/24 09:39 ambulation PSN CPAP & BiPAP: BiPAP & CPAP Settings per PSN Mode AVAPS 07/16/24 22:58 Bipap Delivery Device Face Mask 07/16/24 22:58 BiPAP Inspiratory Pressure 16 07/15/24 23:20 BiPAP Expiratory Pressure 10 07/16/24 22:58 BiPAP Rate 20 07/16/24 22:58 Fraction of Inspired Oxygen ( 30 07/16/24 22:58 FIO2) Home O2 Discharge instructions: No Meaningful Use Info Meaningful Use Meaningful Use Diagnoses (Choose all that apply): None applicable Ischemic Stroke Statin Dosing Therapy Reference: STATIN DOSE THERAPY REFERENCE: * Patients > 75 years receive moderate or high dose statin therapy. * Patients 75 years or YOUNGER should receive HIGH intensity statin dose unless contraindicated. You will be required to document reason for non-treatment if statin daily dose does not meet guidelines. HIGH DOSE STATIN THERAPY DAILY Atorvastatin > than or = to 40 mg Rosuvastatin > than or = to 20 mg Amlodipine + Atorvastatin > than or = to 2.5/40 mg Ezetimibe + Simvastatin 10/80 mg Simvastatin 80mg Discharge Plan Admission Admit Date/Time: 07/15/24 21:42 Attending Provider: Thong Sultana Primary Care Provider: Corin Mariscal Consulting Providers: Pedro Ervin Discharge Orders/Prescriptions Prescriptions: New prednisone 10 mg tablet 10 mg PO DAILY Qty: 32 0RF Rx Instructions: Take 4 tablets daily for 3 days then 3 tablets daily for 3 days then 2 tablets daily for 3 days then 1 tablet daily for 3 days then half tablet daily for 4 days levofloxacin 750 mg Tablet 750 mg PO DAILY 5 Days Qty: 5 0RF albuterol sulfate 90 mcg/actuation HFA aerosol inhaler 1 puff inhalation Q6H PRN (Reason: shortness of breath or wheezing) Qty: 6.7 0RF Continued Dulera 100-5 mcg/actuation HFA aerosol inhaler 2 puff inhalation BID Qty: 13 3RF pantoprazole 40 MG tablet 40 mg PO DAILY rosuvastatin 40 mg Tablet 40 mg PO QHS melatonin 10 mg Tablet 10 mg PO QHS carvedilol 3.125 mg Tablet 3.125 mg PO BID Qty: 60 0RF temazepam 30 mg capsule 30 mg PO QHS alprazolam 0.5 mg tablet 0.5 mg PO BID fluoxetine 40 mg capsule 40 mg PO DAILY Linzess 290 mcg capsule 290 mcg PO DAILY trospium 20 mg tablet 20 mg PO BID ergocalciferol (vitamin D2) 1,250 mcg (50,000 unit) capsule 1,250 mcg PO QWEEK trazodone 100 mg tablet 200 mg PO QHS Referrals / Follow Up: Corin Mariscal MD [Primary Care Provider] - Within 1 Week Disposition Disposition (needs filled in before D/C Order can be placed): Home, Self Care Charges/Coding Visit Charges Inpatient E&M: 37701 Disch Hosp >30min
== END 2024-07-17 16:50 | disposition home or self-care (01) | DRG 202 ==
LOC: ED 19:59 → MS3 22:01
PROVIDERS: Admitting Provider Internal Medicine; Emergency Provider Emergency Medicine; PCP Family Medicine; Visit Provider Family Medicine
DX: J45.901 Unspecified asthma with (acute) exacerbation (principal); J96.22 Acute and chronic respiratory failure with hypercapnia; E66.2 Morbid (severe) obesity with alveolar hypoventilation; Z68.41 Body mass index [BMI] 40.0-44.9, adult; I27.20 Pulmonary hypertension, unspecified; Z99.81 Dependence on supplemental oxygen; D64.9 Anemia, unspecified; I12.9 Hypertensive chronic kidney disease with stage 1 through stage 4 chronic kidney disease, or unspecified chronic kidney disease; K21.9 Gastro-esophageal reflux disease without esophagitis; M19.90 Unspecified osteoarthritis, unspecified site; N18.1 Chronic kidney disease, stage 1; F41.8 Other specified anxiety disorders; E78.5 Hyperlipidemia, unspecified; G43.909 Migraine, unspecified, not intractable, without status migrainosus; K58.1 Irritable bowel syndrome with constipation; J06.9 Acute upper respiratory infection, unspecified; N32.81 Overactive bladder; Z79.51 Long term (current) use of inhaled steroids; Z87.891 Personal history of nicotine dependence; Z90.710 Acquired absence of both cervix and uterus; U09.9 Post COVID-19 condition, unspecified; Z79.899 Other long term (current) drug therapy; Z90.49 Acquired absence of other specified parts of digestive tract; Z98.51 Tubal ligation status; G89.29 Other chronic pain; Z79.891 Long term (current) use of opiate analgesic
CPT/HCPCS: 36415; 36600; 70450; 71045; 80048; 80053; 81001; 82077; 82607; 82746; 82803; 83735; 83880; 84100; 84443; 85025; 85379; 85610; 85730; 87631; 87633; 93005; 94002; 94003; 94668; 94762; 96361; 96374; 96375; 97161; 97802; 99282; 99285; A4216; J1938; J2405

== ENCOUNTER → 2024-07-24 | Outpatient (CLI) | payer MEDICARE, MEDICAID, SELFPAY ==
[2024-07-24 15:31] LABS: Ferritin 10 ng/mL (8-252); Iron 73 ug/dL (50-170); Iron Binding Capacity,Total 411 ug/dL (250-450); PERCENT IRON SATURATION 17.8 % (15.0-55.0)
[2024-07-24 15:35] LABS: Hematocrit 34.9 % (37-47); Mean Corp Hgb Conc 28.7 g/dL (32-36); Mean Corpuscular Hgb 27.7 pg (27.0-32.0); Mean Corpuscular Volume 96.7 fL (81-99); Platelet Count 244 K/mm3 (150-450); RBC Distribution Width CV 14.1 % (11.6-14.6); RBC Distribution Width SD 49.5 fl (35.1-43.9); Red Blood Count 3.61 M/mm3 (4.2-5.4); White Blood Count 9.1 K/mm3 (4.4-11.0)
== END | disposition home or self-care (01) ==
LOC: MFPLAB 12:28
PROVIDERS: PCP Family Medicine; Referring Provider Family Medicine; Visit Provider Family Medicine
DX: D64.9 Anemia, unspecified (principal)
CPT/HCPCS: 36415; 82728; 83540; 83550; 85027

== ENCOUNTER 2024-08-09 17:15 | Inpatient (IN) | payer MEDICARE, MEDICAID, SELFPAY ==
[2024-08-09 17:16] VITALS: BP 142/63; PULSE 99; RESP 18; TEMP 36.8; O2SAT 98; BMI 36.5
--- NOTE | 2024-08-09 17:41 | EX.ED.DYSGE1 ---
HPI <MARKIE Dolan - Last Filed: 08/09/24 20:38> History of Present Illness Chief Complaint: Headache Narrative Narrative: 63-year-old female presents with a gradual onset bifrontal headache that started yesterday. She has nausea but no vomiting. She states she has had intermittent headaches for the last 1 to 2 years. They start gradually and sometimes have associated nausea and vomiting and light and sound sensitivity. She has no diagnosis of migraines. She states she tried [id number] Tylenol and ibuprofen without much relief. She was prescribed [place] for headaches last month but states it does not help. She states she has been sick for 1 to 2 months and had COVID and has been dealing with ongoing sinus drainage and respiratory symptoms. She has been on 3 rounds of antibiotic and steroids and just finished them. She is on chronic 5 L of oxygen for pulmonary hypertension and a paralyzed diaphragm. [facility] <MARKIE Dolan - Last Filed: 08/09/24 20:38> [facility] Medical History (Updated 08/09/24 @ 20:38 by MARKIE Dolan) Chronic pain CPAP (continuous positive airway pressure) dependence Contusion of left hip Contusion of rib on right side Contusion of left shoulder Contusion of scalp Closed fracture of fibula, proximal, left Pyuria Substance abuse Kidney disease Former smoker BiPAP (biphasic positive airway pressure) dependence Sleep apnea On home oxygen therapy Hypertension Dementia Alcohol withdrawal Alcohol abuse Admitted to alcohol detoxification center Medical marijuana use Frequent falls DVT (deep venous thrombosis) Right ventricular systolic dysfunction Right bundle branch block (RBBB) Essential (primary) hypertension Sepsis Abdominal pain Migraine Chronic renal insufficiency, stage I Pancytopenia Respiratory tract infection due to COVID-19 virus Endocarditis Gastritis Restrictive lung disease Colitis Osteoarthritis Chronic renal failure Depression GENNARO (obstructive sleep apnea) Pneumonia Bronchitis Asthma COPD (chronic obstructive pulmonary disease) Morbid obesity HLD (hyperlipidemia) Bronchiectasis Idiopathic right ventricular dilation Thrombocytopenia Leukopenia Abnormal liver CT Anemia Anxiety Respiratory insufficiency Respiratory failure with hypoxia Colitis with rectal bleeding History of umbilical hernia History of diarrhea Arthritis Gastroesophageal reflux disease Home Medications ?Medication ?Instructions ?Recorded ?Last Taken ?Type pantoprazole 40 mg tablet,delayed 40 mg PO DAILY ACID REFLUX 12/09/18 07/12/24 History release rosuvastatin 40 mg tablet 40 mg PO QHS CHOLESTEROL 07/19/21 07/12/24 History melatonin 10 mg tablet 10 mg PO QHS SLEEP 07/16/22 07/12/24 History carvedilol 3.125 mg tablet 3.125 mg PO BID HEART #60 tabs 07/20/22 07/12/24 Rx mometasone-formoterol HFA 100 2 puff inhalation BID SHORTNESS OF 03/05/23 07/12/24 Rx mcg-5 mcg/actuation aerosol BREATH/WHEEZING #13 grams inhaler (Dulera) temazepam 30 mg capsule 30 mg PO QHS INSOMNIA 07/12/23 07/12/24 History alprazolam 0.5 mg tablet 0.5 mg PO BID anxiety 01/28/24 07/12/24 History fluoxetine 40 mg capsule 40 mg PO DAILY depression 01/28/24 07/12/24 History linaclotide 290 mcg capsule 290 mcg PO DAILY bowel function 01/28/24 07/12/24 History (Linzess) trospium 20 mg tablet 20 mg PO BID see 01/28/24 07/12/24 History ergocalciferol (vitamin D2) 1,250 1,250 mcg PO QWEEK 07/15/24 Unknown History mcg (50,000 unit) capsule albuterol sulfate 90 mcg/actuation 1 puff inhalation Q6H PRN 07/17/24 Unknown Rx aerosol inhaler shortness of breath or wheezing #6.7 grams cyanocobalamin (vitamin B-12) 1,000 mcg PO DAILY 08/09/24 Unknown History 1,000 mcg tablet (Vitamin B-12) cyclobenzaprine 5 mg tablet 5 mg PO TID PRN PRN muscle spasm 08/09/24 Unknown History ferrous sulfate 325 mg (65 mg 325 mg PO QDAY 08/09/24 Unknown History iron) tablet (iron) fluconazole 100 mg tablet 100 mg PO QWEEK 08/09/24 Unknown History magnesium 200 mg tablet 200 mg PO DAILY 08/09/24 Unknown History sennosides 8.6 mg tablet (Aminata-guy) 8.6 mg PO BID PRN PRN constipation 08/09/24 Unknown History Allergy/AdvReac Type Severity Reaction Status Date / Time house dust Allergy ITCHY EYES Verified 08/09/24 17:18 Penicillins Allergy Hives Verified 08/09/24 17:18 Seasonal Allergies: Uncoded Allergy ITCHY EYES Verified 08/09/24 17:18 Opioids - Morphine Analogues AdvReac Intermediate Confusion Verified 08/09/24 17:18 (narcotics) Family History Father Colon cancer Mother Cancer pancreatic Surgical History History of tubal ligation History of appendectomy History of hysterectomy History of cholecystectomy Social History household members: none Smoking Status: Former smoker Tobacco: How many years used: 25 how long ago did patient quit smokin, 0.5ppd second hand exposure: Yes alcohol intake: never substance use type: does not use ROS <MARKIE Dolan - Last Filed: 08/09/24 20:38> ROS ED ROS Narrative Constitutional: Positive for fever, chills, malaise. Eyes: Negative for visual change. GI: Positive for nausea. No vomiting. Neuro: Positive for headache. EXAM <MARKIE Dolan - Last Filed: 08/09/24 20:38> Physical Exam Narrative Exam Narrative: CONST: Patient sitting in no acute distress. EYES: Normal inspection. PERRL, EOMI. ENT: Normal inspection, moist mucous membranes. NECK: Normal inspection. No meningismus. RESP: No respiratory distress, CTAB. CVS: Regular rate and rhythm, no murmur, no gallop. SKIN: Color normal, no rash, warm, dry, intact. EXTREMITIES: Normal appearance, no pedal edema. NEURO: Alert and answering questions appropriately. 5/5 upper and lower extremity strength, normal [id number] bilaterally. PSYCH: Normal affect. Const Vital Signs: 08/09/24 17:16 08/09/24 17:58 08/09/24 19:16 Temperature 98.2 F Temperature Source Temporal Pulse Rate 99 93 Respiratory Rate 18 24 H Blood Pressure 142/63 H Blood Pressure Mean 89 Pulse Ox 98 97 96 Oxygen Delivery Method Nasal Cannula Nasal Cannula Nasal Cannula Oxygen Flow Rate (L/min) 4 4.5 4.5 <Dr. Torey Mercedes DO - Last Filed: 08/09/24 20:48> Physical Exam Const Vital Signs: 08/09/24 17:16 08/09/24 17:58 08/09/24 19:16 Temperature 98.2 F Temperature Source Temporal Pulse Rate 99 93 Respiratory Rate 18 24 H Blood Pressure 142/63 H Blood Pressure Mean 89 Pulse Ox 98 97 96 Oxygen Delivery Method Nasal Cannula Nasal Cannula Nasal Cannula Oxygen Flow Rate (L/min) 4 4.5 4.5 [facility] <MARKIE Dolan - Last Filed: 08/09/24 20:38> [facility] Narrative Medical decision making narrative: Differential includes tension headache, migraine, she has no signs or symptoms of meningitis 63-year-old female reports a convoluted history. Initially does describe a gradual onset bifrontal headache with nausea. And reports she has been sick for 3 weeks and was admitted for COVID in the past. She reports she is still having fevers up to 102 ?F this morning. She appears awake alert in no distress. She is afebrile with normal vital signs. She wears 4 to 5 L of nasal cannula oxygen at baseline. She has no meningismus. She has a normal neurological exam. She had a negative CT brain scan on 07/13/2024 so since her exam here is benign I do not feel this needs repeated. She was initially given IV cocktail of Toradol, Compazine, and Benadryl while blood work was obtained. WBC is 3.5, hemoglobin 9.0, platelets 149. It looks like she has had a history of pancytopenia and ongoing chronic anemia. Lactic is 1.2. CXR shows elevated right hemidiaphragm with bibasilar atelectasis and states a superimposed infection cannot be excluded; she is not febrile here and does not have a significant cough so I do not suspect pneumonia. UA negative for infection. CMP returned last with markedly elevated glucose at 560. CO2 33.7 and anion gap is 12. Electrolytes are within normal limits. She denies history of diabetes. In July her glucose ran between 100?200s. She reports being on 3 rounds of antibiotics and steroids and finished them recently so this likely precipitated her hyperglycemia. She was given IV fluids and 12 units of lispro. She has not had improvement in her headache and due to intractable migraine and significant new hyperglycemia without a way to arrange appropriate management follow-up on the weekend I think she requires admission. I discussed the case with the hospitalist. I have personally performed a face to face assessment of the patient and have reviewed the DESTIN Note. I performed a substantive portion of the visit including all aspects of the following. My nobles findings include: History is [patient presents with headache since yesterday. Describes bifrontal headache with some mild nausea. Denies significant photophobia. Patient states that she has been sick for about 3 weeks and it was admitted with COVID in the past. 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 She also tells me that she has had for the last 2 to 3 days frequent urination where she is urinating about every 5 minutes. She describes dysuria. Patient states that she has had fevers at home up to 10 3 at night and 102 this morning. Apparently was seen in July for multiple complaints in the ER and had a CT scan of her brain that was unremarkable. She has not had any falls or head injuries.] Exam is [HEENT-PERRLA, EOMI. Cranial nerves II through XII grossly intact. TMs clear. Mucous membranes moist. No adenopathy. Cardiovascular-regular rate and rhythm without murmur or ectopy Lungs-clear to auscultation, chest wall stable without crepitus or subcu emphysema Abdomen-normoactive bowel sounds, soft, nontender, no rebound or rigidity, no peritoneal signs. Extremities-intact ?4, normal range of motion, normal pulses, atraumatic] Medical Decison Making [patient with headache and fever and dysuria. Will obtain basic labs. Will treat with IV fluids as well as Reglan, Benadryl, and Toradol. Will obtain urinalysis as well as blood cultures and urine cultures and lactate.] Other additions or changes: [None] Lab Data Attestation: I reviewed the patient's lab results. Labs: Laboratory Results - last 24 hr 08/09/24 08/09/24 18:15 18:34 WBC 3.5 L RBC 3.30 L Hgb 9.0 L Hct 30.3 L MCV 91.8 MCH 27.3 MCHC 29.7 L RDW Std Deviation 49.4 H RDW Coeff of Jaun 14.9 H Plt Count 149 L MPV 10.4 Immature Gran % (Auto) 0.600 Neut % (Auto) 64.4 Lymph % (Auto) 25.7 [place] % (Auto) 7.9 Eos % (Auto) 1.1 Baso % (Auto) 0.3 Absolute Neuts (auto) 2.3 Absolute Lymphs (auto) 0.91 Nucleated RBC % 0 PT 12.3 INR 0.9 APTT 22.6 L Sodium 138 Potassium 4.3 Chloride 97 L Carbon Dioxide 33.7 H Anion Gap 7 BUN 12 Creatinine 0.91 Estim Creat Clear Calc 82.86 Est GFR (MDRD) Non-Af 71 BUN/Creatinine Ratio 13.3 Glucose 560 H* Lactic Acid 1.2 Calcium 9.5 Total Bilirubin 0.67 AST 10 ALT 12 Alkaline Phosphatase 88 Total Protein 5.7 L Albumin 3.9 Globulin 1.8 L Albumin/Globulin Ratio 2.1 Urine Color Yellow Urine Clarity Clear Urine pH 7.0 Ur Specific [place] 1.010 Urine Protein 30 H Urine Glucose (UA) 1000 H Urine Ketones Negative Urine Occult Blood 10 H Urine Nitrite Negative Urine Bilirubin Negative Urine Urobilinogen Normal Ur Leukocyte Esterase Negative Urine RBC 0 SEEN Urine WBC 0 SEEN Ur Squamous Epith Cells 0 SEEN Urine Bacteria 0 SEEN Urine Mucus 0 SEEN Radiography Diagnostic Testing: Clinical Impression(s) from Imaging Studies Chest X-Ray 08/09/24 17:58 IMPRESSION: Elevated right hemidiaphragm with bibasilar platelike atelectasis. Superimposed infection can not be excluded. Reading Location: [facility] ED attending interpretation of 1 view chest x-ray shows elevated right hemidiaphragm, no large infiltrate. <Dr. Torey Mercedes, DO - Last Filed: 08/09/24 20:48> [facility] Narrative Medical decision making narrative: Differential includes tension headache, migraine, she has no signs or symptoms of meningitis 63-year-old female reports a convoluted history. Initially does describe a gradual onset bifrontal headache with nausea. And reports she has been sick for 3 weeks and was admitted for COVID in the past. She reports she is still having fevers up to 102 ?F this morning. She appears awake alert in no distress. She is afebrile with normal vital signs. She wears 4 to 5 L of nasal cannula oxygen at baseline. She has no meningismus. She has a normal neurological exam. She had a negative CT brain scan on 07/13/2024 so since her exam here is benign I do not feel this needs repeated. She was initially given IV cocktail of Toradol, Compazine, and Benadryl while blood work was obtained. WBC is 3.5, hemoglobin 9.0, platelets 149. It looks like she has had a history of pancytopenia and ongoing chronic anemia. Lactic is 1.2. CXR shows elevated right hemidiaphragm with bibasilar atelectasis and states a superimposed infection cannot be excluded; she is not febrile here and does not have a significant cough so I do not suspect pneumonia. UA negative for infection. CMP returned last with markedly elevated glucose at 560. CO2 33.7 and anion gap is 12. Electrolytes are within normal limits. She denies history of diabetes. In July her glucose ran between 100?200s. She reports being on 3 rounds of antibiotics and steroids and finished them recently so this likely precipitated her hyperglycemia. She was given IV fluids and 12 units of lispro. She has not had improvement in her headache and due to intractable migraine and significant new hyperglycemia without a way to arrange appropriate management follow-up on the weekend I think she requires admission. I discussed the case with the hospitalist. I have personally performed a face to face assessment of the patient and have reviewed the DESTIN Note. I performed a substantive portion of the visit including all aspects of the following. My nobles findings include: History is [patient presents with headache since yesterday. Describes bifrontal headache with some mild nausea. Denies significant photophobia. Patient states that she has been sick for about 3 weeks and it was admitted with COVID in the past. 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 She also tells me that she has had for the last 2 to 3 days frequent urination where she is urinating about every 5 minutes. She describes dysuria. Patient states that she has had fevers at home up to 10 3 at night and 102 this morning. Apparently was seen in July for multiple complaints in the ER and had a CT scan of her brain that was unremarkable. She has not had any falls or head injuries.] Exam is [HEENT-PERRLA, EOMI. Cranial nerves II through XII grossly intact. TMs clear. Mucous membranes moist. No adenopathy. Cardiovascular-regular rate and rhythm without murmur or ectopy Lungs-clear to auscultation, chest wall stable without crepitus or subcu emphysema Abdomen-normoactive bowel sounds, soft, nontender, no rebound or rigidity, no peritoneal signs. Extremities-intact ?4, normal range of motion, normal pulses, atraumatic] Medical Decison Making [patient with headache and fever and dysuria. Will obtain basic labs. Will treat with IV fluids as well as Reglan, Benadryl, and Toradol. Will obtain urinalysis as well as blood cultures and urine cultures and lactate.] CBC with differential obtained showed a white count of 3.5 with hemoglobin 9.0 and platelet count of 149. Chemistries unremarkable. Glucose elevated 560. Urinalysis unremarkable. Etiology of patient's fever unclear. Patient was given 12 units of insulin subcu for the elevated glucose and she does not have a history of diabetes. She continues to complain of headache. I do not think she needs any further imaging as she recently had a CT scan of her brain that was unremarkable less than a month ago. Chest x-ray obtained did not show any definitive infiltrate or pneumonia. Blood cultures ordered and pending. Case discussed with hospitalist to evaluate patient for admission for management of blood sugar and for intractable headache. Other additions or changes: [None] Lab Data Labs: Laboratory Results - last 24 hr 08/09/24 08/09/24 18:15 18:34 WBC 3.5 L RBC 3.30 L Hgb 9.0 L Hct 30.3 L MCV 91.8 MCH 27.3 MCHC 29.7 L RDW Std Deviation 49.4 H RDW Coeff of Jaun 14.9 H Plt Count 149 L MPV 10.4 Immature Gran % (Auto) 0.600 Neut % (Auto) 64.4 Lymph % (Auto) 25.7 [place] % (Auto) 7.9 Eos % (Auto) 1.1 Baso % (Auto) 0.3 Absolute Neuts (auto) 2.3 Absolute Lymphs (auto) 0.91 Nucleated RBC % 0 PT 12.3 INR 0.9 APTT 22.6 L Sodium 138 Potassium 4.3 Chloride 97 L Carbon Dioxide 33.7 H Anion Gap 7 BUN 12 Creatinine 0.91 Estim Creat Clear Calc 82.86 Est GFR (MDRD) Non-Af 71 BUN/Creatinine Ratio 13.3 Glucose 560 H* Lactic Acid 1.2 Calcium 9.5 Total Bilirubin 0.67 AST 10 ALT 12 Alkaline Phosphatase 88 Total Protein 5.7 L Albumin 3.9 Globulin 1.8 L Albumin/Globulin Ratio 2.1 Urine Color Yellow Urine Clarity Clear Urine pH 7.0 Ur Specific [place] 1.010 Urine Protein 30 H Urine Glucose (UA) 1000 H Urine Ketones Negative Urine Occult Blood 10 H Urine Nitrite Negative Urine Bilirubin Negative Urine Urobilinogen Normal Ur Leukocyte Esterase Negative Urine RBC 0 SEEN Urine WBC 0 SEEN Ur Squamous Epith Cells 0 SEEN Urine Bacteria 0 SEEN Urine Mucus 0 SEEN Radiography Diagnostic Testing: Clinical Impression(s) from Imaging Studies Chest X-Ray 08/09/24 17:58 IMPRESSION: Elevated right hemidiaphragm with bibasilar platelike atelectasis. Superimposed infection can not be excluded. Reading Location: [facility] Discharge Plan Triage Chief Complaint: Headache ED Midlevel Provider: Airam Rocha ED Provider: Torey Mercedes Dx/Rx/DC Orders Clinical Impression: Headache, Acute hyperglycemia, Pancytopenia Primary Care Provider: Corin Mariscal
[2024-08-09 17:58] VITALS: O2SAT 97
--- NOTE | 2024-08-09 17:58 | RAD_ITS ---
PROCEDURE: CHEST PA AND LATERAL REASON FOR EXAM: Fever TECHNIQUE: Frontal and lateral views of the chest. COMPARISON: Chest radiograph dated 07/15/2024 FINDINGS: Heart size is mildly enlarged. The mediastinal contour is unremarkable. Elevated right hemidiaphragm with bibasilar platelike atelectasis. Lumbar spine fixation hardware. RAD/Chest PA and Lateral IMPRESSION: Elevated right hemidiaphragm with bibasilar platelike atelectasis. Superimpose d infection can not be excluded. Reading Location: [facility]
[2024-08-09] MEDS: 0.9% Normal Saline (1000mL) 1,000 ML 999 ML IV (18:13)
[2024-08-09] MEDS: DiphenhydrAMINE 50 MG/ML Syringe 25 MG IV (18:13)
[2024-08-09] MEDS: proCHLORPERazine 10 MG/2 ML Vial 5 MG IV (18:14)
[2024-08-09] MEDS: Ketorolac 15 MG/ML Vial IV ×2 (18:14→22:59)
[2024-08-09 18:40] LABS: Absolute Lymphocyte Count 0.91 X10^3/uL (0.83-4.51); Absolute Neutrophil Count 2.3 X10^3/uL (2.0-7.7); Basophil# 0.01 X10^3/uL; Basophil% 0.3 % (0-1); Eosinophil# 0.04 X10^3/uL; Eosinophils% 1.1 % (0-5); Hematocrit 30.3 % (37-47); Lymphocyte # 0.91 X10^3/ul (0.83-4.51); Lymphocyte % 25.7 % (19-41); Mean Corp Hgb Conc 29.7 g/dL (32-36); Mean Corpuscular Hgb 27.3 pg (27.0-32.0); Mean Corpuscular Volume 91.8 fL (81-99); Mean Platelet Vol. 10.4 fl (6.2-12.0); Monocyte# 0.28 X10^3/uL; Monocyte% 7.9 % (0-10); NRBC Flagged by Analyzer 0 % (0-5); Neutrophil # 2.28 X10^3/uL (2.7-7.7); Neutrophil % 64.4 % (47-70); Platelet Count 149 K/mm3 (150-450); RBC Distribution Width CV 14.9 % (11.6-14.6); RBC Distribution Width SD 49.4 fl (35.1-43.9); White Blood Count 3.5 K/mm3 (4.4-11.0)
[2024-08-09 18:41] LABS: Bacteria 0 SEEN /hpf (None Seen); Mucous, Urine 0 SEEN /hpf (<or=2+); Squamous Epithelial Cells - UA 0 SEEN /hpf (5-10); White Blood Cells 0 SEEN /hpf (0-5)
[2024-08-09 18:50] LABS: Color, Urine Yellow (Yellow); Glucose, Dipstick 1000 mg/dl (Normal); Ketone-Dipstick Negative (Negative); Leukocyte Esterase-Dipstick Negative /ul (Negative); Nitrite-Dipstick Negative (Negative); Occult Blood-Urine 10 /ul (Negative); Protein-Dipstick 30 mg/dl (Negative); Urine Bilirubin Dipstick Negative (Negative); Urine Clarity Clear (Clear); Urine Urobilinogen Normal (Normal)
[2024-08-09 18:53] LABS: Red Blood Cells-Urine 0 SEEN /hpf (0-5)
[2024-08-09 19:02] LABS: International Normalized Ratio 0.9; Prothrombin Time (Protime)PT. 12.3 SECONDS (11.7-14.9)
[2024-08-09 19:04] LABS: Partial Thromboplast Time 22.6 Seconds (24.1-36.2)
[2024-08-09 19:07] LABS: Lactic Acid 1.2 mmol/L (0.0-2.0)
[2024-08-09 19:16] VITALS: PULSE 93; RESP 24; O2SAT 96
[2024-08-09 19:54] LABS: ALB/GLOB Ratio 2.1 RATIO (0.9-2.4); AST(SGOT) 10 U/L (<=31); Alanine Aminotransfer ALT/SGPT 12 U/L (<=34); Albumin, Serum 3.9 g/dL (3.4-4.8); Alkaline Phosphatase 88 U/L (35-104); Anion Gap 7 (5-15); BUN 12 mg/dL (4-19); BUN/Creat Ratio 13.3 RATIO (10-20); Calcium,Total 9.5 mg/dL (7.6-11.0); Carbon Dioxide 33.7 mmol/L (21.0-32.0); Chloride 97 mmol/L (98-108); Creatinine, Serum 0.91 mg/dL (0.70-1.20); EST Glomerular Filtration Rate 71 (>60); Estimated Creatinine Clearance 82.86 ml/min (50-250); Globulin 1.8 g/dL (2.2-4.2); Glucose 560 mg/dL (70-99); Potassium 4.3 mmol/L (3.3-5.1); Protein, Total 5.7 g/dL (5.9-8.4); Sodium Level 138 mmol/L (133-145); Total Bilirubin 0.67 mg/dL (0.00-1.30)
--- NOTE | 2024-08-09 19:55 | ED.RN ---
Critical glucose of [address] Mercedes notified
[2024-08-09] MEDS: Insulin Lispro 100 UNIT/ML INSULN.PEN 12 UNIT SC (20:08)
--- NOTE | 2024-08-09 20:29 | PCM.HP.STD ---
HPI - General General Date of Admission: 08/09/24 Date of Service: 08/09/24 Chief Complaint: Intractable WEBER, light sensitivity, nausea. HPI Narrative The patient is a 63 y/o F w/ PMHx: Obesity, GENNARO on BIPAP, Chronic anemia/chronic iron deficiency, CKD stage II per GFR trending, EtOH abuse, Former tobacco use, COPD/Asthma/Bronchiectasis/RLS/Pulmonary HTN and paralzed hemidiaphragm w/ Chronic Hypoxic Respiratory Failure (5L NC), Anxiety and Depression, GERD, HTN, HLD, Hx Long COVID, Hx VTE (DVT), Dementia unclear type and extent with unclear behavioral disturbance history who presents to the [facility] ED on 08/09/24 with history of gradual persistent bifrontal headache starting the day prior with nausea without emesis with history of intermittent headaches for the last 1 to 2 years and in chart history noted chronic migraines attempting [id number] Tylenol and ibuprofen without much relief with [place] prescribed a month prior secondary to headaches but unfortunately she has been sick for the last 1 to 2 months initially having COVID now with long-haul COVID symptoms with sinus drainage and respiratory symptoms that have been persistent with at least 3 rounds of antibiotics and steroids and given it would not resolve prompted eventual ED evaluation. Workup in the ED included T98.2 Temporal, heart rate 99, BP 142/63, respiratory rate 18, 98% on 4 L nasal cannula most recently noted to be on 3 L with most recent repeat vital signs although last note notes 5L NC respiratory rate 24, 96% on 4.5 L nasal cannula, CBC with WC 3.5, hemoglobin 9.0, MCV 91.8, platelet 149 without marked shift, coags unremarkable aside PTT 22.6, CMP with chloride 97, come back side 33.7, BUN/creatinine 12/0.91, GFR 71, glucose 560, lactic acid 1.2, hepatic profile not marked appearing, urinalysis with clear appearing urine, specific every 1.010, protein 30, glucose 1000, ketone negative, occult blood 10, negative nitrite, negative leukocyte esterase with no evidence of UTI, chest x-ray with evidence of elevated right hemidiaphragm with bibasilar atelectasis with possible superimposed infection unable to be excluded. In the ED patient ministered 1 L normal saline, diphenhydramine 25 mg IV x 1, insulin lispro 12 units subcu x 1, Toradol 50 mg IV x 1, prochlorperazine 5 mg IV x 1. FOR[facility]LY [facility] Medical History Chronic pain CPAP (continuous positive airway pressure) dependence Contusion of left hip Contusion of rib on right side Contusion of left shoulder Contusion of scalp Closed fracture of fibula, proximal, left Pyuria Substance abuse Kidney disease Former smoker BiPAP (biphasic positive airway pressure) dependence Sleep apnea On home oxygen therapy Hypertension Dementia Alcohol withdrawal Alcohol abuse Admitted to alcohol detoxification center Medical marijuana use Frequent falls DVT (deep venous thrombosis) Right ventricular systolic dysfunction Right bundle branch block (RBBB) Essential (primary) hypertension Sepsis Abdominal pain Migraine Chronic renal insufficiency, stage I Pancytopenia Respiratory tract infection due to COVID-19 virus Endocarditis Gastritis Restrictive lung disease Colitis Osteoarthritis Chronic renal failure Depression GENNARO (obstructive sleep apnea) Pneumonia Bronchitis Asthma COPD (chronic obstructive pulmonary disease) Morbid obesity HLD (hyperlipidemia) Bronchiectasis Idiopathic right ventricular dilation Thrombocytopenia Leukopenia Abnormal liver CT Anemia Anxiety Respiratory insufficiency Respiratory failure with hypoxia Colitis with rectal bleeding History of umbilical hernia History of diarrhea Arthritis Gastroesophageal reflux disease Home Medications ?Medication ?Instructions ?Recorded ?Last Taken ?Type pantoprazole 40 mg tablet,delayed 40 mg PO DAILY ACID REFLUX 12/09/18 07/12/24 History release rosuvastatin 40 mg tablet 40 mg PO QHS CHOLESTEROL 07/19/21 07/12/24 History melatonin 10 mg tablet 10 mg PO QHS SLEEP 07/16/22 07/12/24 History carvedilol 3.125 mg tablet 3.125 mg PO BID HEART #60 tabs 07/20/22 07/12/24 Rx mometasone-formoterol HFA 100 2 puff inhalation BID SHORTNESS OF 03/05/23 07/12/24 Rx mcg-5 mcg/actuation aerosol BREATH/WHEEZING #13 grams inhaler (Dulera) temazepam 30 mg capsule 30 mg PO QHS INSOMNIA 07/12/23 07/12/24 History alprazolam 0.5 mg tablet 0.5 mg PO BID anxiety 01/28/24 07/12/24 History fluoxetine 40 mg capsule 40 mg PO DAILY depression 01/28/24 07/12/24 History linaclotide 290 mcg capsule 290 mcg PO DAILY bowel function 01/28/24 07/12/24 History (Linzess) trospium 20 mg tablet 20 mg PO BID see md 01/28/24 07/12/24 History ergocalciferol (vitamin D2) 1,250 1,250 mcg PO QWEEK 07/15/24 Unknown History mcg (50,000 unit) capsule albuterol sulfate 90 mcg/actuation 1 puff inhalation Q6H PRN 07/17/24 Unknown Rx aerosol inhaler shortness of breath or wheezing #6.7 grams cyanocobalamin (vitamin B-12) 1,000 mcg PO DAILY 08/09/24 Unknown History 1,000 mcg tablet (Vitamin B-12) cyclobenzaprine 5 mg tablet 5 mg PO TID PRN PRN muscle spasm 08/09/24 Unknown History ferrous sulfate 325 mg (65 mg 325 mg PO QDAY 08/09/24 Unknown History iron) tablet (iron) fluconazole 100 mg tablet 100 mg PO QWEEK 08/09/24 Unknown History magnesium 200 mg tablet 200 mg PO DAILY 08/09/24 Unknown History sennosides 8.6 mg tablet (Aminata-guy) 8.6 mg PO BID PRN PRN constipation 08/09/24 Unknown History Allergy/AdvReac Type Severity Reaction Status Date / Time house dust Allergy ITCHY EYES Verified 08/09/24 17:18 Penicillins Allergy Hives Verified 08/09/24 17:18 Seasonal Allergies: Uncoded Allergy ITCHY EYES Verified 08/09/24 17:18 Opioids - Morphine Analogues AdvReac Intermediate Confusion Verified 08/09/24 17:18 (narcotics) Family History Father Colon cancer Mother Cancer pancreatic Surgical History History of tubal ligation History of appendectomy History of hysterectomy History of cholecystectomy Social History (Updated 08/09/24 @ 21:[address] Mckenzie Austin MD) household members: none Smoking Status: Former smoker Tobacco: How many years used: 25 how long ago did patient quit smokin, 0.5ppd second hand exposure: Yes alcohol intake: former substance use type: does not use Vital Signs Vital Signs Vital Signs: 08/09/24 17:16 08/09/24 17:58 08/09/24 19:16 Temperature 98.2 F Temperature Source Temporal Pulse Rate 99 93 Respiratory Rate 18 24 H Blood Pressure 142/63 H Blood Pressure Mean 89 Pulse Ox 98 97 96 Oxygen Delivery Method Nasal Cannula Nasal Cannula Nasal Cannula Oxygen Flow Rate (L/min) 4 4.5 4.5 Weight Weight: 240 lb Body Mass Index (BMI) 36.5 Results Lab / Micro Data 08/09/24 18:15 08/09/24 18:15 Labs: Laboratory Results - last 24 hr 08/09/24 18:15: WBC 3.5 L, RBC 3.30 L, Hgb 9.0 L, Hct 30.3 L, MCV 91.8, MCH 27.3, MCHC 29.7 L, RDW Std Deviation 49.4 H, RDW Coeff of Jaun 14.9 H, Plt Count 149 L, MPV 10.4, Immature Gran % (Auto) 0.600, Neut % (Auto) 64.4, Lymph % (Auto) 25.7, [place] % (Auto) 7.9, Eos % (Auto) 1.1, Baso % (Auto) 0.3, Absolute Neuts (auto) 2.3, Absolute Lymphs (auto) 0.91, Nucleated RBC % 0, PT 12.3, INR 0.9, APTT 22.6 L, Sodium 138, Potassium 4.3, Chloride 97 L, Carbon Dioxide 33.7 H, Anion Gap 7, BUN 12, Creatinine 0.91, Estim Creat Clear Calc 82.86, Est GFR (MDRD) Non-Af 71, BUN/Creatinine Ratio 13.3, Glucose 560 H*, Lactic Acid 1.2, Calcium 9.5, Total Bilirubin 0.67, AST 10, ALT 12, Alkaline Phosphatase 88, Total Protein 5.7 L, Albumin 3.9, Globulin 1.8 L, Albumin/Globulin Ratio 2.1 08/09/24 18:34: Urine Color Yellow, Urine Clarity Clear, Urine pH 7.0, Ur Specific Springer 1.010, Urine Protein 30 H, Urine Glucose (UA) 1000 H, Urine Ketones Negative, Urine Occult Blood 10 H, Urine Nitrite Negative, Urine Bilirubin Negative, Urine Urobilinogen Normal, Ur Leukocyte Esterase Negative, Urine RBC 0 SEEN, Urine WBC 0 SEEN, Ur Squamous Epith Cells 0 SEEN, Urine Bacteria 0 SEEN, Urine Mucus 0 SEEN Imaging Radiology Impression Chest X-Ray 08/09/24 17:58 IMPRESSION: Elevated right hemidiaphragm with bibasilar platelike atelectasis. Superimposed infection can not be excluded. [facility] Assessment & Plan Assessment/Plan (1) Headache: (2) Acute hyperglycemia: PLAN: Plan The patient is a 63 y/o F w/ PMHx: Obesity, GENNARO on BIPAP, Chronic anemia/chronic iron deficiency, CKD stage II per GFR trending, EtOH abuse, Former tobacco use, COPD/Asthma/Bronchiectasis/RLS/Pulmonary HTN and paralzed hemidiaphragm w/ Chronic Hypoxic Respiratory Failure (5L NC), Anxiety and Depression, GERD, HTN, HLD, Hx Long COVID, Hx VTE (DVT), Dementia unclear type and extent with unclear behavioral disturbance history who presents to the [facility] ED on 08/09/24 with history of gradual persistent bifrontal headache starting the day prior with nausea without emesis with history of intermittent headaches for the last 1 to 2 years and in chart history noted chronic migraines attempting [id number] Tylenol and ibuprofen without much relief with [place] prescribed a month prior secondary to headaches but unfortunately she has been sick for the last 1 to 2 months initially having COVID now with long-haul COVID symptoms with sinus drainage and respiratory symptoms that have been persistent with at least 3 rounds of antibiotics and steroids and given it would not resolve prompted eventual ED evaluation. #1. Acute Persistent Intractable Migraine: Will admit to MS, hold narcotic therapy give this may exacerbate migraine, initiate IV VPA 500mg Q6 hours, given hyperglycemia will defer Decadron, initiate on IV Toradol 50 mg every 8 hours x 5 doses, initiate on a low-dose Neurontin 100 mg 3 times daily with first dose now, will allow clears until clinically improving with antiemetics as needed. If migraine is intractable and does not improve with this intervention then may consider MRI of the brain. #2. Hyperglycemia, no diabetic history, possibly secondary to recent significant steroid regimen: Admission glucose significantly elevated 560, subcu insulin administered in the ED, will obtain HgBA1c and in the interim will maintain on Accu-Chek with insulin sliding scale with clears given nausea but once improves until clarified will transition to ADA, but there is no glucose in the urine and no previous diabetic history however patient has been on significant recent steroids which may be the etiology. #3. Recent URI type symptoms with serial rounds of steroids, antibiotic therapy: Unfortunately could be related to recent COVID illness and long-haul, will obtain full respiratory viral panel to be cautious, procalcitonin requested. #4. COPD/Asthma/Bronchiectasis/RLS/Pulmonary HTN and paralyzed hemidiaphragm w/ Chronic Hypoxic Respiratory Failure (5L NC): Will maintain on home oxygen supplementation, hold home inhalers in the interim will maintain on ATC budesonide, PRN albuterol, HOB, IS parameters. #5. Dementia unclear type and extent with unclear behavioral disturbance history: Complicates presentation, 90 dementia regimen per current list, case management consulted. #6. Thrombocytopenia, possibly reactive: Admission platelets 149, potentially reactive, continue evaluation treatment as noted, repeat CBC in a.m. #7. Chronic Kidney Disease Stage II per GFR trending: Admission BUN/Cr 12/0.91, GFR 71, baseline renal function 0.6-0.9, repeat BMP in AM. #8. Hypertension: Continue home regimen including Coreg with hold parameters as needed, PRN hydralazine. #9. Hyperlipidemia: Not on regimen, defer to outpatient. #10. Chronic constipation: We will continue patient bowel regimen. #11. Chronic normocytic anemia/iron deficiency anemia: Admission globin 9.0, MCV 91.8, baseline hemoglobin 9-10, similar, stable, continue to trend, continue iron supplementation. #12. Anxiety and depression: We will continue patient home alprazolam, fluoxetine, temazepam home regimen. #13. Former tobacco use: Encourage continued tobacco cessation. #14. Former alcohol abuse: Encouraged continued sobriety. #15. Obesity: Weight loss and lifestyle changes encouraged. #16. GENNARO: Per chart BIPAP q HS prior, but non-compliant, uses her 5L NC continuous only. #17. History of VTE: Not on any chronic anticoagulation, noted previous history, will maintain on chemoprophylaxis. #18. GERD: Continue patient on PPI. #19. DVT Prophylaxis: Lovenox. #20. CODE status: Patient HCPOAs are her daughters and living will is in place. Discussed CODE status at length including difference between FULL code, DNR-CCA and DNR-CC status. Following discussions about the differences in these status, requested DNR-CCA, no intubation which was verified with examples. Advanced Care Planning Face to Face Time: 16 minutes. Charges/Coding Visit Charges Inpatient E&M: 92253 Init Hosp L3 Procedures Hospitalists Procedures: 50453 Advncd Care Plan 30 Min
[2024-08-09 20:59] VITALS: BP 142/63; PULSE 93; RESP 24; TEMP 36.8; O2SAT 96
[2024-08-09 20:59] LABS: Bedside Glucose 415 mg/dL (74-106)
[2024-08-09 21:20] VITALS: BMI 39.9
[2024-08-09 21:36] VITALS: BP 142/86; PULSE 88; RESP 18; TEMP 36.6; O2SAT 100
[2024-08-09 22:22] LABS: Bedside Glucose 376 mg/dL (74-106)
[2024-08-09] MEDS: 0.9% Normal Saline (1000mL) 1,000 ML 100 ML IV (22:57)
[2024-08-09] MEDS: Valproate Sodium 500 MG in Dextrose 5%-Water (50mL Bag) 50 ML 50 MG IV (22:57)
[2024-08-09] MEDS: 0.9% Saline Lock 10 ML Syringe IV (22:58)
[2024-08-09] MEDS: Insulin Lispro 100 UNIT/ML INSULN.PEN SC (22:59)
[2024-08-09] MEDS: ALPRAZolam 0.5 MG Tablet PO (23:01)
[2024-08-09] MEDS: Gabapentin 100 MG Capsule PO (23:01)
[2024-08-09] MEDS: Atorvastatin Calcium 80 MG Tablet PO (23:01)
[2024-08-09] MEDS: MELATONIN 10 MG TABLET PO (23:01)
[2024-08-09] MEDS: Temazepam 15 MG Capsule 30 MG PO (23:01)
[2024-08-09] MEDS: CLARIFY ORDER 1 EACH NOTE (23:04)
[2024-08-09 23:11] LABS: Procalcitonin 0.09 ng/mL (<=0.10)
[2024-08-09 23:25] VITALS: PULSE 84; RESP 12; O2SAT 100
[2024-08-09] MEDS: Budesonide Respules 0.5 MG/2 ML AMPUL.NEB. INHALATION (23:25)
[2024-08-10] VITALS (7 sets, daily range): BP systolic 114–125; BP diastolic 67–76; PULSE 78–88; RESP 16–20; TEMP 36.4–36.6; O2SAT 97–100; BMI 39.7
[2024-08-10 00:10] LABS: Hemoglobin A1c 8.9 % (<=5.6)
[2024-08-10] MEDS: Valproate Sodium 500 MG in Dextrose 5%-Water (50mL Bag) 50 ML 50 MG IV ×3 (06:09→18:49)
[2024-08-10] MEDS: Ketorolac 15 MG/ML Vial IV ×3 (06:09→18:52)
[2024-08-10] MEDS: 0.9% Saline Lock 10 ML Syringe IV (06:11)
[2024-08-10 06:29] LABS: Bedside Glucose 109 mg/dL (74-106)
[2024-08-10 06:30] LABS: Bedside Glucose 104 mg/dL (74-106)
--- NOTE | 2024-08-10 07:35 | PCM.PN.HOSP ---
Reason for Visit Reason for Visit: Diagnoses Headache, unspecified (08/09/24) Hyperglycemia, unspecified (08/09/24) Subjective Subjective Patient is a 63-year-old lady who presented with urinary frequency headaches and was found to be hyperglycemic with glucose levels greater than 500 admitted to regular nursing floor for further management Objective Data Objective Data Vital Signs: Vital Signs Temp Pulse Resp BP Pulse Ox O2 Del Method O2 Flow Rate 97.8 F 78 16 125/67 H 100 Nasal Cannula 5 08/10/24 03:04 08/10/24 03:04 08/10/24 03:04 08/10/24 03:04 08/10/24 03:04 08/10/24 03:04 08/10/24 03:04 Oxygen Flow Rate (L/min) 5 Oxygen Delivery Method Nasal Cannula Weight: 119 kg Body Mass Index (BMI) 39.7 Intake & Output: Intake and Output for Last 24 Hours 08/08/24 08/09/24 08/11/24 23:59 23:59 00:59 Intake Total 1000 / 1000 685 / 685 Output Total 450 / 450 Balance 1000 / 800 235 / 235 Lab / Micro Data 08/10/24 07:39 08/10/24 07:39 Labs: Laboratory Results - last 24 hr 08/09/24 18:15: WBC 3.5 L, RBC 3.30 L, Hgb 9.0 L, Hct 30.3 L, MCV 91.8, MCH 27.3, MCHC 29.7 L, RDW Std Deviation 49.4 H, RDW Coeff of Jaun 14.9 H, Plt Count 149 L, MPV 10.4, Immature Gran % (Auto) 0.600, Neut % (Auto) 64.4, Lymph % (Auto) 25.7, Long % (Auto) 7.9, Eos % (Auto) 1.1, Baso % (Auto) 0.3, Absolute Neuts (auto) 2.3, Absolute Lymphs (auto) 0.91, Nucleated RBC % 0, PT 12.3, INR 0.9, APTT 22.6 L, Sodium 138, Potassium 4.3, Chloride 97 L, Carbon Dioxide 33.7 H, Anion Gap 7, BUN 12, Creatinine 0.91, Estim Creat Clear Calc 82.86, Est GFR (MDRD) Non-Af 71, BUN/Creatinine Ratio 13.3, Glucose 560 H*, Hemoglobin A1c 8.9, Lactic Acid 1.2, Calcium 9.5, Total Bilirubin 0.67, AST 10, ALT 12, Alkaline Phosphatase 88, Total Protein 5.7 L, Albumin 3.9, Globulin 1.8 L, Albumin/Globulin Ratio 2.1, Procalcitonin 0.09 08/09/24 18:34: Urine Color Yellow, Urine Clarity Clear, Urine pH 7.0, Ur Specific Joshua 1.010, Urine Protein 30 H, Urine Glucose (UA) 1000 H, Urine Ketones Negative, Urine Occult Blood 10 H, Urine Nitrite Negative, Urine Bilirubin Negative, Urine Urobilinogen Normal, Ur Leukocyte Esterase Negative, Urine RBC 0 SEEN, Urine WBC 0 SEEN, Ur Squamous Epith Cells 0 SEEN, Urine Bacteria 0 SEEN, Urine Mucus 0 SEEN 08/09/24 20:40: POC Glucose 415 H 08/09/24 21:33: POC Glucose 376 H 08/10/24 03:02: POC Glucose 109 H 08/10/24 06:08: POC Glucose 104 Micro: Microbiology 08/09/24 23:20 Mucosa - Nasopharyngeal Respiratory Panel (PCR) - Final Radiography Diagnostic Testing: Radiology Impression Chest X-Ray 08/09/24 17:58 IMPRESSION: Elevated right hemidiaphragm with bibasilar platelike atelectasis. Superimposed infection can not be excluded. Reading Location: [facility] Physical Exam Narrative GENERAL: cooperative HEENT: Atraumatic; normocephalic EYES; Anicteric, Normal Conjunctiva NECK; supple, normal thyroid, RESPIRATORY: Diminished to auscultation CARDIOVASCULAR: Regular S1 S2, GI: soft, normoactive bowel sounds, : No Renal angle tenderness; EXTREMITIES: No edema, no clubbing, MUSCULOSKELETAL: no muscle wasting NEURO: Awake; no lateralizing signs. SKIN: No Rash PSYCH; Flat affect Assessment & Plan Assessment/Plan (1) Headache: (2) Acute hyperglycemia: PLAN: Plan Patient is a 63-year-old lady who presented with urinary frequency headaches and was found to be hyperglycemic with glucose levels greater than 500 admitted to regular nursing floor for further management 1. Acute migrainous headache ? Patient admitted to regular nursing floor managed with Toradol as well as Phenergan. Patient did ask for morphine for the headaches did explain patient morphine was not a good choice for migrainous headaches. Consult [facility] to [facility] teleneurology 2. Hyperglycemia ? Secondary to new onset diabetes mellitus type 2. Patient presented with hyperglycemia as well as urinary frequency managed with IV fluids placed on Accu-Cheks before meals and at bedtime with sliding scale coverage. Patient hemoglobin A1c on admission was 8.9 3. Polysubstance abuse ?Including hospitalization for chronic alcohol dependence with withdrawal. Patient has remained sober 4. Chronic hypoxic respiratory failure ?Secondary to COPD, mild intermittent asthma, bronchiectasis, patient is on baseline home oxygen did continue 5. Class II obesity with BMI of 40 ?Weight loss advised 6. Obstructive sleep apnea ?Patient is on BiPAP at night, did continue with home setting 7. GERD ?Patient is on PPI, did continue 8. Depression with anxiety ?Patient is on SSRI did continue 9. Dyslipidemia ?Apparently managed with diet 10. History of essential hypertension ?Patient currently not on any antihypertensives blood pressure remained stable 11. History of endocarditis - currently stable 12. Mild thrombocytopenia ? Patient has some chronicity we will monitor 13. Chronic constipation ? Patient placed on a bowel regimen 14. DVT prophylaxis ? On enoxaparin Time spent in the patient's overall evaluation,decision-making process, review of diagnostic data, adjustment of management, discussion with other providers, nursing nursing and ancillary staff involved in patient's care documentation, 52 Minutes Charges/Coding Visit Charges Inpatient E&M: 79590 [facility] L3
[2024-08-10] MEDS: Budesonide Respules 0.5 MG/2 ML AMPUL.NEB. INHALATION ×2 (07:58→20:08)
[2024-08-10 08:02] LABS: Absolute Lymphocyte Count 1.48 X10^3/uL (0.83-4.51); Absolute Neutrophil Count 2.1 X10^3/uL (2.0-7.7); Basophil# 0.02 X10^3/uL; Basophil% 0.5 % (0-1); Eosinophil# 0.08 X10^3/uL; Hematocrit 30.9 % (37-47); Hemoglobin 9.1 g/dL (12.0-15.0); Lymphocyte # 1.48 X10^3/ul (0.83-4.51); Lymphocyte % 36.5 % (19-41); Mean Corp Hgb Conc 29.4 g/dL (32-36); Mean Corpuscular Hgb 27.5 pg (27.0-32.0); Mean Corpuscular Volume 93.4 fL (81-99); Monocyte# 0.41 X10^3/uL; Monocyte% 10.1 % (0-10); NRBC Flagged by Analyzer 0 % (0-5); Neutrophil # 2.06 X10^3/uL (2.7-7.7); Neutrophil % 50.7 % (47-70); Platelet Count 141 K/mm3 (150-450); RBC Distribution Width CV 14.6 % (11.6-14.6); RBC Distribution Width SD 49.8 fl (35.1-43.9); Red Blood Count 3.31 M/mm3 (4.2-5.4); White Blood Count 4.1 K/mm3 (4.4-11.0)
[2024-08-10 09:18] LABS: ALB/GLOB Ratio 2.9 RATIO (0.9-2.4); AST(SGOT) 14 U/L (<=31); Alanine Aminotransfer ALT/SGPT 12 U/L (<=34); Albumin, Serum 3.8 g/dL (3.4-4.8); Alkaline Phosphatase 83 U/L (35-104); Anion Gap 7 (5-15); BUN 11 mg/dL (4-19); BUN/Creat Ratio 13.4 RATIO (10-20); Calcium,Total 9.1 mg/dL (7.6-11.0); Carbon Dioxide 32.1 mmol/L (21.0-32.0); Chloride 103 mmol/L (98-108); Creatinine, Serum 0.85 mg/dL (0.70-1.20); EST Glomerular Filtration Rate 78 (>60); Globulin 1.3 g/dL (2.2-4.2); Glucose 146 mg/dL (70-99); Potassium 4.2 mmol/L (3.3-5.1); Protein, Total 5.1 g/dL (5.9-8.4); Sodium Level 142 mmol/L (133-145)
[2024-08-10] MEDS: Gabapentin 100 MG Capsule PO ×3 (10:15→17:03)
[2024-08-10] MEDS: ALPRAZolam 0.5 MG Tablet PO ×2 (10:15→22:01)
[2024-08-10] MEDS: Carvedilol 3.125 MG TABLET PO ×2 (10:15→17:02)
[2024-08-10] MEDS: Tolterodine Tartrate 2 MG CAP.SA PO (10:15)
[2024-08-10] MEDS: Enoxaparin 40 MG/0.4 ML Syringe SC (10:15)
[2024-08-10] MEDS: Pantoprazole Sodium 40 MG Tablet PO (10:15)
[2024-08-10] MEDS: Fluoxetine HCl 40 MG CAPSULE PO (10:15)
[2024-08-10] MEDS: Insulin Lispro 100 UNIT/ML INSULN.PEN SC ×3 (10:32→22:02)
[2024-08-10 10:52] LABS: Bedside Glucose 241 mg/dL (74-106)
[2024-08-10] MEDS: Insulin Glargine-YFGN 100 UNIT/ML Pen 10 UNIT SC (11:06)
[2024-08-10] MEDS: 0.9% Normal Saline (1000mL) 1,000 ML 200 ML IV ×3 (12:33→20:23)
[2024-08-10] MEDS: Ferrous Sulfate 325 MG Tablet PO (12:33)
[2024-08-10 16:37] LABS: Bedside Glucose 286 mg/dL (74-106)
[2024-08-10] MEDS: Temazepam 15 MG Capsule 30 MG PO (22:01)
[2024-08-10] MEDS: MELATONIN 10 MG TABLET PO (22:01)
[2024-08-10] MEDS: Atorvastatin Calcium 80 MG Tablet PO (22:01)
[2024-08-10 22:47] LABS: Bedside Glucose 264 mg/dL (74-106)
[2024-08-11] MEDS: Ketorolac 15 MG/ML Vial IV (00:33)
[2024-08-11] MEDS: Valproate Sodium 500 MG in Dextrose 5%-Water (50mL Bag) 50 ML 50 MG IV ×3 (01:03→13:21)
[2024-08-11] MEDS: Insulin Lispro 100 UNIT/ML INSULN.PEN SC ×4 (03:41→21:56)
[2024-08-11 04:36] VITALS: BMI 39.7
[2024-08-11 05:37] VITALS: BP 111/67; PULSE 72; RESP 18; TEMP 36.6; O2SAT 96
[2024-08-11] MEDS: proMETHazine 25 MG/ML Syringe 12.5 MG IM (05:47)
[2024-08-11 06:15] LABS: Bedside Glucose 233 mg/dL (74-106)
[2024-08-11 06:17] LABS: Bedside Glucose 273 mg/dL (74-106)
[2024-08-11] MEDS: Budesonide Respules 0.5 MG/2 ML AMPUL.NEB. INHALATION (07:13)
[2024-08-11 07:14] VITALS: PULSE 87; RESP 18; O2SAT 94
[2024-08-11 07:25] LABS: Absolute Lymphocyte Count 0.82 X10^3/uL (0.83-4.51); Absolute Neutrophil Count 2.6 X10^3/uL (2.0-7.7); Basophil# 0.01 X10^3/uL; Basophil% 0.3 % (0-1); Eosinophil# 0.04 X10^3/uL; Eosinophils% 1.1 % (0-5); Hematocrit 36.1 % (37-47); Hemoglobin 10.4 g/dL (12.0-15.0); Lymphocyte # 0.82 X10^3/ul (0.83-4.51); Lymphocyte % 21.8 % (19-41); Mean Corp Hgb Conc 28.8 g/dL (32-36); Mean Corpuscular Hgb 27.4 pg (27.0-32.0); Mean Platelet Vol. 9.9 fl (6.2-12.0); Monocyte# 0.25 X10^3/uL; Monocyte% 6.6 % (0-10); NRBC Flagged by Analyzer 0 % (0-5); Neutrophil # 2.62 X10^3/uL (2.7-7.7); Neutrophil % 69.7 % (47-70); Platelet Count 155 K/mm3 (150-450); RBC Distribution Width CV 15.1 % (11.6-14.6); RBC Distribution Width SD 52.4 fl (35.1-43.9); White Blood Count 3.8 K/mm3 (4.4-11.0)
--- NOTE | 2024-08-11 08:03 | PCM.PN.HOSP ---
Reason for Visit Reason for Visit: Diagnoses Headache, unspecified (08/09/24) Hyperglycemia, unspecified (08/09/24) Subjective Subjective Patient seen complains of persistent headache as well as nausea with some vomiting this a.m. Patient Protonix was switched from p.o. to IV. Consult already placed to [facility] teleneurology awaiting input. Patient blood glucose control remains labile patient was started on long-acting insulin the day prior also requested for dietitian consultation Objective Data Objective Data Vital Signs: Vital Signs Temp Pulse Resp BP Pulse Ox O2 Del Method O2 Flow Rate 97.8 F 87 18 111/67 94 Nasal Cannula 5 08/11/24 05:37 08/11/24 07:14 08/11/24 07:14 08/11/24 05:37 08/11/24 07:14 08/11/24 07:14 08/11/24 07:14 Oxygen Flow Rate (L/min) 5 Oxygen Delivery Method Nasal Cannula Weight: 119 kg Body Mass Index (BMI) 39.7 Intake & Output: Intake and Output for Last 24 Hours 08/09/24 08/11/24 08/11/24 23:59 00:59 23:59 Intake Total 1000 / 1000 2986.67 / 2986.67 2009 Output Total 1775 / 1775 600 / 600 Balance 1000 / 800 1211.67 / 1211.67 1410 / 1410 Lab / Micro Data 08/11/24 07:10 08/10/24 07:39 Labs: Laboratory Results - last 24 hr 08/10/24 07:39: Sodium 142, Potassium 4.2, Chloride 103, Carbon Dioxide 32.1 H, Anion Gap 7, BUN 11, Creatinine 0.85, Estim Creat Clear Calc 93.10, Est GFR (MDRD) Non-Af 78, BUN/Creatinine Ratio 13.4, Glucose 146 H, Calcium 9.1, Total Bilirubin 0.50, AST 14, ALT 12, Alkaline Phosphatase 83, Total Protein 5.1 L, Albumin 3.8, Globulin 1.3 L, Albumin/Globulin Ratio 2.9 H 08/10/24 10:30: POC Glucose 241 H 08/10/24 16:12: POC Glucose 286 H 08/10/24 21:57: POC Glucose 264 H 08/11/24 03:40: POC Glucose 273 H 08/11/24 05:55: POC Glucose 233 H 08/11/24 07:10: WBC 3.8 L, RBC 3.80 L, Hgb 10.4 L, Hct 36.1 L, MCV 95.0, MCH 27.4, MCHC 28.8 L, RDW Std Deviation 52.4 H, RDW Coeff of Jaun 15.1 H, Plt Count 155, MPV 9.9, Immature Gran % (Auto) 0.500, Neut % (Auto) 69.7, Lymph % (Auto) 21.8, Caroline % (Auto) 6.6, Eos % (Auto) 1.1, Baso % (Auto) 0.3, Absolute Neuts (auto) 2.6, Absolute Lymphs (auto) 0.82 L, Nucleated RBC % 0 Micro: Microbiology 08/09/24 23:20 Mucosa - Nasopharyngeal Respiratory Panel (PCR) - Final Physical Exam Narrative GENERAL: cooperative HEENT: Atraumatic; normocephalic EYES; Anicteric, Normal Conjunctiva NECK; supple, normal thyroid, RESPIRATORY: Diminished to auscultation CARDIOVASCULAR: Regular S1 S2, GI: soft, normoactive bowel sounds, : No Renal angle tenderness; EXTREMITIES: No edema, no clubbing, MUSCULOSKELETAL: no muscle wasting NEURO: Awake; no lateralizing signs. SKIN: No Rash PSYCH; Flat affect Assessment & Plan Assessment/Plan (1) Headache: (2) Acute hyperglycemia: PLAN: Plan Patient is a 63-year-old lady who presented with urinary frequency headaches and was found to be hyperglycemic with glucose levels greater than 500 admitted to regular nursing floor for further management 1. Acute migrainous headache ? Patient admitted to regular nursing floor managed with Toradol as well as Phenergan. Patient did ask for morphine for the headaches did explain patient morphine was not a good choice for migrainous headaches. Consult placed to [facility] teleneurology ? 08/11 patient symptoms persist awaiting [facility] teleneurology consultation 2. Hyperglycemia ? Secondary to new onset diabetes mellitus type 2. Patient presented with hyperglycemia as well as urinary frequency managed with IV fluids placed on Accu-Cheks before meals and at bedtime with sliding scale coverage. Patient hemoglobin A1c on admission was 8.9 ? 08/11/2024; patient hyperglycemia persist, blood glucose this a.m. 230. Did increase patient glargine dose. 3. Polysubstance abuse ?Including hospitalization for chronic alcohol dependence with withdrawal. Patient has remained sober 4. Chronic hypoxic respiratory failure ?Secondary to COPD, mild intermittent asthma, bronchiectasis, patient is on baseline home oxygen did continue 5. Class II obesity with BMI of 40 ?Weight loss advised 6. Obstructive sleep apnea ?Patient is on BiPAP at night, did continue with home setting 7. GERD ?Patient is on PPI, did continue 8. Depression with anxiety ?Patient is on SSRI did continue 9. Dyslipidemia ?Apparently managed with diet 10. History of essential hypertension ?Patient currently not on any antihypertensives blood pressure remained stable 11. History of endocarditis - currently stable 12. Mild thrombocytopenia ? Patient has some chronicity we will monitor 13. Chronic constipation ? Patient placed on a bowel regimen 14. DVT prophylaxis ? On enoxaparin 15. Hypophosphatemia ? Corrected for protocol repeat labs ordered for a.m. Time spent in the patient's overall evaluation,decision-making process, review of diagnostic data, adjustment of management, discussion with other providers, nursing nursing and ancillary staff involved in patient's care documentation, 50 Minutes Charges/Coding Visit Charges Inpatient E&M: 90687 [facility] Hosp L3
[2024-08-11 08:19] LABS: Magnesium 2.2 mg/dL (1.5-2.2); Phosphorus 2.6 mg/dL (2.7-4.5)
[2024-08-11 08:57] VITALS: BP 143/78; PULSE 92; RESP 18; TEMP 36.9; O2SAT 100
[2024-08-11 08:59] LABS: Anion Gap 15 (5-15); BUN 12 mg/dL (4-19); BUN/Creat Ratio 13.3 RATIO (10-20); Calcium,Total 9.1 mg/dL (7.6-11.0); Carbon Dioxide 23.1 mmol/L (21.0-32.0); Chloride 102 mmol/L (98-108); Cholesterol 151 mg/dL (<=200); Creatinine, Serum 0.91 mg/dL (0.70-1.20); EST Glomerular Filtration Rate 71 (>60); Estimated Creatinine Clearance 86.96 ml/min (50-250); Glucose 241 mg/dL (70-99); High Density Lipoprotein 69 mg/dL; Low Density Lipoprotein Calc. 46 mg/dL; Potassium 4.1 mmol/L (3.3-5.1); Sodium Level 139 mmol/L (133-145); Triglycerides 179 mg/dL; Very Low Density Lipoprotein 36 mg/dL (5-40); cholesterol:hdl ratio screen 2.19
[2024-08-11] MEDS: Ondansetron 4 MG/2 ML Vial IV (08:59)
[2024-08-11] MEDS: ALPRAZolam 0.5 MG Tablet PO ×2 (09:00→21:50)
[2024-08-11] MEDS: Gabapentin 100 MG Capsule PO ×2 (09:00→17:17)
[2024-08-11] MEDS: 0.9% Saline Lock 10 ML Syringe IV (09:01)
[2024-08-11] MEDS: Fluoxetine HCl 40 MG CAPSULE PO (09:02)
[2024-08-11] MEDS: Tolterodine Tartrate 2 MG CAP.SA PO (09:03)
[2024-08-11] MEDS: Carvedilol 3.125 MG TABLET PO ×2 (09:03→17:22)
[2024-08-11] MEDS: Insulin Glargine-YFGN 100 UNIT/ML Pen 10 UNIT SC ×2 (09:06→17:21)
[2024-08-11] MEDS: Enoxaparin 40 MG/0.4 ML Syringe SC (09:13)
--- NOTE | 2024-08-11 09:32 | NURSING ---
Pt falls asleep fast. awakens easily to voice. This RN took out purewick, made pt get up to use the bathroom which she was incont and cont of urine and then made pt sit in the chair. While sitting on the toilet, pt stated, Maybe I shouldn't go home today. This RN talked about options of going to rehab to get stronger or having HH come to her house b/c when asked why she thinks she should stay pt stated to get stronger. After talking about options discharge planning, pt then stated, I'll be alright, I'll just go home Pt slow to respond to questions, seems alittle off. PT has her purse at her bedside at all times. Pt sitting in chair. When first got in chair pt c/o WEBER and within minutes pt falls back to sleep. This RN is not going to give pt her Morphine x1 yet.
[2024-08-11 09:39] LABS: Bedside Glucose 223 mg/dL (74-106)
[2024-08-11] MEDS: Na Biphos/Potassium Phosphate PACKET 1 PACKET PO ×2 (10:19→21:40)
[2024-08-11] MEDS: Pantoprazole Sodium 40 MG in 0.9% Normal Saline (100mL MB+) 100 ML 330 MG IV ×2 (10:19→22:04)
--- NOTE | 2024-08-11 11:02 | CASEMGMT ---
Met with patient to complete PRUITT form. PRUITT form explained to patient who voiced understanding and signed form. Original form placed in pt?s chart and copy provided to patient. Nancy Gutierrez, Discharge Planning Asst
--- NOTE | 2024-08-11 13:15 | NEURO.CONS ---
Assessment and Plan: Neuro Assessment/Plan ALFIE HOGAN is a 63 y/o F w/ PMHx: Obesity, GENNARO,, Chronic anemia,, CKD stage II, EtOH abuse, Former tobacco use, COPD/Asthma/Bronchiectasis/RLS/Pulmonary HTN and paralzed hemidiaphragm w/ Chronic Hypoxic Respiratory Failure, Anxiety and Depression, GERD, HTN, HLD, Hx Long COVID, Hx VTE (DVT), Dementia being evaluated by Teleneurology for headache. Description is consistent with some what consistent migraine associated nausea, vomiting, p/p, not also has features of tension type (squeezing/vice like pressure). limited improvement with prior cocktails. Would treat as below but also rule out secondary causes of headache with MRI. Plan: - MRI Brain without contrast - Would give IV Magnesium 2 gr once - Would consider 10 mg Decadron x1 with close glucose monitoring - Migraine cocktails of Toradol 15-30 mg IV, Compazine 10 mg IV, Benedryl 25 mg IV, Depakote 1000 mg IV - Would schedule these Q6 x3 doses and then space to PRN - Goal would be WEBER intensity of </= 5/10 - Avoid opioids - If no improvement with above, it is unlikely to resolve headache while admitted - could continue to cocktails PRN but would not keep in hospital for headache I personally attended this patient and spent a total time of 32 minutes evaluating this patient including clinical assessment, review of chart, medical history imaging, and determining appropriate treatment and workup. HPI Consult Data Date of Consult: 08/11/24 HPI Narrative HPI Narrative: ALFIE HOGAN, is a 63 y/o F w/ PMHx: Obesity, GENNARO,, Chronic anemia,, CKD stage II, EtOH abuse, Former tobacco use, COPD/Asthma/Bronchiectasis/RLS/Pulmonary HTN and paralyzed hemidiaphragm w/ Chronic Hypoxic Respiratory Failure, Anxiety and Depression, GERD, HTN, HLD, Hx Long COVID, Hx VTE (DVT), Dementia being evaluated by Teleneurology for headache. Presented with headache. Describes headache as a vice wrapping around her head. No throbbing. She does have photo/phonophobia and n/v. This headache as been ongoing for the last 2-3 days. 9-10/10 on the pain scale. She does have a history of headaches - although carries no diagnosis of migraine - none have been as severe as this headache. She has received Toradol, Phenergan, Depakote, she has noticed some benefit but not significant (WEBER goes down to an 01/11). Morphine has helped the most. She deneis any other associated neurologic symptoms. FOR[facility]LY [facility], LATER [facility] Medical History Chronic pain CPAP (continuous positive airway pressure) dependence Contusion of left hip Contusion of rib on right side Contusion of left shoulder Contusion of scalp Closed fracture of fibula, proximal, left Pyuria Substance abuse Kidney disease Former smoker BiPAP (biphasic positive airway pressure) dependence Sleep apnea On home oxygen therapy Hypertension Dementia Alcohol withdrawal Alcohol abuse Admitted to alcohol detoxification center Medical marijuana use Frequent falls DVT (deep venous thrombosis) Right ventricular systolic dysfunction Right bundle branch block (RBBB) Essential (primary) hypertension Sepsis Abdominal pain Migraine Chronic renal insufficiency, stage I Pancytopenia Respiratory tract infection due to COVID-19 virus Endocarditis Gastritis Restrictive lung disease Colitis Osteoarthritis Chronic renal failure Depression GENNARO (obstructive sleep apnea) Pneumonia Bronchitis Asthma COPD (chronic obstructive pulmonary disease) Morbid obesity HLD (hyperlipidemia) Bronchiectasis Idiopathic right ventricular dilation Thrombocytopenia Leukopenia Abnormal liver CT Anemia Anxiety Respiratory insufficiency Respiratory failure with hypoxia Colitis with rectal bleeding History of umbilical hernia History of diarrhea Arthritis Gastroesophageal reflux disease Home Medications ?Medication ?Instructions ?Recorded ?Last Taken ?Type pantoprazole 40 mg tablet,delayed 40 mg PO DAILY ACID REFLUX 12/09/18 07/12/24 History release rosuvastatin 40 mg tablet 40 mg PO QHS CHOLESTEROL 07/19/21 07/12/24 History melatonin 10 mg tablet 10 mg PO QHS SLEEP 07/16/22 07/12/24 History carvedilol 3.125 mg tablet 3.125 mg PO BID HEART #60 tabs 07/20/22 07/12/24 Rx mometasone-formoterol HFA 100 2 puff inhalation BID SHORTNESS OF 03/05/23 07/12/24 Rx mcg-5 mcg/actuation aerosol BREATH/WHEEZING #13 grams inhaler (Dulera) temazepam 30 mg capsule 30 mg PO QHS INSOMNIA 07/12/23 07/12/24 History alprazolam 0.5 mg tablet 0.5 mg PO BID anxiety 01/28/24 07/12/24 History fluoxetine 40 mg capsule 40 mg PO DAILY depression 01/28/24 07/12/24 History linaclotide 290 mcg capsule 290 mcg PO DAILY bowel function 01/28/24 07/12/24 History (Linzess) trospium 20 mg tablet 20 mg PO BID see md 01/28/24 07/12/24 History ergocalciferol (vitamin D2) 1,250 1,250 mcg PO QWEEK 07/15/24 Unknown History mcg (50,000 unit) capsule albuterol sulfate 90 mcg/actuation 1 puff inhalation Q6H PRN 07/17/24 Unknown Rx aerosol inhaler shortness of breath or wheezing #6.7 grams cyanocobalamin (vitamin B-12) 1,000 mcg PO DAILY 08/09/24 Unknown History 1,000 mcg tablet (Vitamin B-12) cyclobenzaprine 5 mg tablet 5 mg PO TID PRN PRN muscle spasm 08/09/24 Unknown History ferrous sulfate 325 mg (65 mg 325 mg PO QDAY 08/09/24 Unknown History iron) tablet (iron) fluconazole 100 mg tablet 100 mg PO QWEEK 08/09/24 Unknown History magnesium 200 mg tablet 200 mg PO DAILY 08/09/24 Unknown History sennosides 8.6 mg tablet (Aminata-guy) 8.6 mg PO BID PRN PRN constipation 08/09/24 Unknown History Allergy/AdvReac Type Severity Reaction Status Date / Time house dust Allergy ITCHY EYES Verified 08/09/24 17:18 Penicillins Allergy Hives Verified 08/09/24 17:18 Seasonal Allergies: Uncoded Allergy ITCHY EYES Verified 08/09/24 17:18 Opioids - Morphine Analogues AdvReac Intermediate Confusion Verified 08/09/24 17:18 (narcotics) Family History Father Colon cancer Mother Cancer pancreatic Surgical History History of tubal ligation History of appendectomy History of hysterectomy History of cholecystectomy Social History household members: none Smoking Status: Former smoker Tobacco: How many years used: 25 how long ago did patient quit smokin, 0.5ppd second hand exposure: Yes alcohol intake: former substance use type: does not use Vital Signs Vital Signs Vital Signs: 08/10/24 14:32 08/10/24 14:33 08/10/24 20:08 Temperature 97.5 F L Temperature Source Temporal Pulse Rate 81 83 Pulse Strength Respiratory Rate 16 20 H Respiratory Effort Normal Non-Labored Respiratory Depth Normal Respiratory Pattern Normal Normal Blood Pressure 125/74 H Blood Pressure Mean 91 Blood Pressure Source Monitor Blood Pressure Position Semi-Fowlers Blood Pressure Location Right Arm Pulse Ox 100 Oxygen Delivery Method Nasal Cannula Nasal Cannula Oxygen Flow Rate (L/min) 5 5 08/10/24 22:15 08/10/24 22:15 08/10/24 22:29 Temperature 97.9 F Temperature Source Oral Pulse Rate 78 Pulse Strength Normal (2+) Respiratory Rate 18 Respiratory Effort Normal Respiratory Depth Normal Respiratory Pattern Normal Blood Pressure 114/76 Blood Pressure Mean 88 Blood Pressure Source Monitor Blood Pressure Position Semi-Fowlers Blood Pressure Location Right Arm Pulse Ox 97 97 Oxygen Delivery Method Nasal Cannula Nasal Cannula Oxygen Flow Rate (L/min) 5 5 08/11/24 05:37 08/11/24 05:37 08/11/24 07:14 Temperature 97.8 F Temperature Source Oral Pulse Rate 72 87 Pulse Strength Respiratory Rate 18 18 Respiratory Effort Normal Respiratory Depth Normal Respiratory Pattern Normal Normal Blood Pressure 111/67 Blood Pressure Mean 81 Blood Pressure Source Monitor Blood Pressure Position Semi-Fowlers Blood Pressure Location Right Arm Pulse Ox 96 96 Oxygen Delivery Method Nasal Cannula Nasal Cannula Oxygen Flow Rate (L/min) 5 5 08/11/24 07:14 08/11/24 08:57 08/11/24 09:15 Temperature 98.5 F Temperature Source Oral Pulse Rate 92 Pulse Strength Respiratory Rate 18 Respiratory Effort Normal Non-Labored Respiratory Depth Normal Respiratory Pattern Normal Blood Pressure 143/78 H Blood Pressure Mean 99 Blood Pressure Source Monitor Blood Pressure Position Semi-Fowlers Blood Pressure Location Right Arm Pulse Ox 94 100 Oxygen Delivery Method Nasal Cannula Nasal Cannula Nasal Cannula Oxygen Flow Rate (L/min) 5 5 5 08/11/24 10:00 Temperature Temperature Source Pulse Rate Pulse Strength Normal (2+) Respiratory Rate Respiratory Effort Respiratory Depth Respiratory Pattern Blood Pressure Blood Pressure Mean Blood Pressure Source Blood Pressure Position Blood Pressure Location Pulse Ox Oxygen Delivery Method Oxygen Flow Rate (L/min) Weight Weight: 119 kg Body Mass Index (BMI) 39.7 EEG Results Procedure Details EEG Procedure Details: ALFIE HOGAN is a 63 year old F with a past medical history of , who presents for evaluation of Electroencephalogram on DATE at TIME Physical Exam Neuro Sensorium / Orientation: awake, alert, oriented to person, oriented to place and oriented to time Cranial Nerves: CN normal except as noted Coordination / Balance: [id number] test normal and [id number] test normal Speech: speech normal Sensory Exam: double simultaneous stimulation for sensation normal Motor Exam: strength 5/5 throughout and no pronator drift Lab / Micro Data 08/11/24 07:10 08/11/24 07:10 Labs: Laboratory Results - last 24 hr 08/10/24 16:12: POC Glucose 286 H 08/10/24 21:57: POC Glucose 264 H 08/11/24 03:40: POC Glucose 273 H 08/11/24 05:55: POC Glucose 233 H 08/11/24 07:10: WBC 3.8 L, RBC 3.80 L, Hgb 10.4 L, Hct 36.1 L, MCV 95.0, MCH 27.4, MCHC 28.8 L, RDW Std Deviation 52.4 H, RDW Coeff of Jaun 15.1 H, Plt Count 155, MPV 9.9, Immature Gran % (Auto) 0.500, Neut % (Auto) 69.7, Lymph % (Auto) 21.8, [place] % (Auto) 6.6, Eos % (Auto) 1.1, Baso % (Auto) 0.3, Absolute Neuts (auto) 2.6, Absolute Lymphs (auto) 0.82 L, Nucleated RBC % 0, Sodium 139, Potassium 4.1, Chloride 102, Carbon Dioxide 23.1, Anion Gap 15, BUN 12, Creatinine 0.91, Estim Creat Clear Calc 86.96, Est GFR (MDRD) Non-Af 71, BUN/Creatinine Ratio 13.3, Glucose 241 H, Calcium 9.1, Phosphorus 2.6 L, Magnesium 2.2, Triglycerides 179, Cholesterol 151, LDL Cholesterol, Calc 46, VLDL Cholesterol 36, HDL Cholesterol 69, Cholesterol/HDL Ratio 2.19 08/11/24 09:11: POC Glucose 223 H Micro: Microbiology 08/09/24 18:34 Urine Catheter - Catheter Urine Culture - Preliminary Culture exhibits no growth. Active Medications Active Medications Active Medications: Current Medications Generic Name Dose Route Start Last Admin Trade Name Freq PRN Reason Stop Dose Admin Acetaminophen 650 mg 08/09/24 21:19 Acetaminophen 325 Mg Tablet PO Q4H PRN PRN Fever, pain 1-03/13 Al Hydroxide/Mg Hydroxide 30 ml 08/09/24 21:19 Mag Hydrox/Al Hydrox/Simeth 30 Ml Udc PO Q6H PRN PRN Gastric Burning Albuterol Sulfate 2.5 mg 08/09/24 21:19 Albuterol 2.5 Mg/3 Ml Vial.Neb. INHALATION Q2H PRN PRN Dyspnea, wheezing Alprazolam 0.5 mg 08/09/24 22:00 08/11/24 09:00 Alprazolam 0.5 Mg Tablet PO 0.5 mg BID NINA Administration Atorvastatin Calcium 80 mg 08/09/24 22:00 08/10/24 22:01 Atorvastatin Calcium 80 Mg Tablet PO 80 mg QHS NINA Administration Budesonide 0.5 mg 08/09/24 21:19 08/11/24 07:13 Budesonide Respules 0.5 Mg/2 Ml Ampul.Neb. INHALATION 0.5 mg BID.RT NINA Administration Carvedilol 3.125 mg 08/10/24 08:00 08/11/24 09:03 Carvedilol 3.125 Mg Tablet PO 3.125 mg BIDCM NINA Administration Protocol Cyclobenzaprine HCl 5 mg 08/09/24 21:19 Cyclobenzaprine Hcl 5 Mg Tablet PO TID PRN PRN muscle spasm Enoxaparin Sodium 40 mg 08/10/24 10:00 08/11/24 09:13 Enoxaparin 40 Mg/0.4 Ml Syringe SC 40 mg DAILY NINA Administration Ferrous Sulfate 325 mg 08/10/24 12:00 08/10/24 12:33 Ferrous Sulfate 325 Mg Tablet PO 325 mg DAILY@1200 NINA Administration Fluoxetine HCl 40 mg 08/10/24 10:00 08/11/24 09:02 Fluoxetine Hcl 40 Mg Capsule PO 40 mg DAILY NINA Administration Gabapentin 100 mg 08/09/24 21:19 08/11/24 09:00 Gabapentin 100 Mg Capsule PO 100 mg TIDCM NINA Administration Glucagon 1 mg 08/09/24 21:19 Glucagon 1 Mg/Ml Syringe IM X1 PRN HYPOGLYCEMIA Protocol Guaifenesin 20 ml 08/09/24 21:19 Guaifenesin 10 Ml Udc (200mg/10ml) PO Q4H PRN PRN COUGH Hydralazine HCl 10 mg 08/09/24 21:19 Hydralazine 20 Mg/Ml Vial IV Q4H PRN PRN SBP > 160 Protocol Valproic Acid 500 mg/ Dextrose 55 mls @ 50 mls/hr 08/09/24 21:20 08/11/24 07:52 IV Infused Q6 NINA Infusion Dextrose 250 mls @ 0 mls/hr 08/09/24 21:19 Dextrose 10%-Water IV .Q0M PRN HYPOGLYCEMIA Protocol As Directed Sodium Chloride 100 mls @ 15 mls/hr 08/09/24 21:21 IV .Q6H40M PRN Saline Flush Sodium Chloride 100 mls @ 15 mls/hr 08/09/24 21:21 IV .Q6H40M PRN Additional IVPB Infusion Pantoprazole Sodium 40 mg/ 110 mls @ 330 mls/hr 08/11/24 10:00 08/11/24 10:40 Sodium Chloride IV Infused Q12 NINA Infusion Insulin Glargine 10 unit 08/11/24 10:00 08/11/24 09:17 Insulin Glargine-Yfgn 100 Unit/Ml Pen SC Not Given BIDAC NINA Insulin Human Lispro 0 unit 08/09/24 21:19 08/11/24 09:12 Insulin Lispro 100 Unit/Ml Insuln.Pen SC 2 u Q6H NINA Administration Protocol Ketorolac Tromethamine 15 mg 08/10/24 09:45 08/11/24 00:33 Ketorolac 15 Mg/Ml Vial IV 08/12/24 09:46 15 mg Q6H.RT NINA Administration Melatonin 10 mg 08/09/24 22:00 08/10/24 22:01 Melatonin 10 Mg Tablet PO 10 mg QHS NINA Administration Ondansetron HCl 4 mg 08/09/24 21:19 08/11/24 08:59 Ondansetron 4 Mg/2 Ml Vial IV 4 mg Q8H PRN PRN Administration NAUSEA/VOMITING Potassium Phos/Sodium Phos 1 packet 08/11/24 10:00 08/11/24 10:19 Na Biphos/Potassium Phosphate Packet PO 1 packet BID NINA Administration Prochlorperazine Edisylate 5 mg 08/09/24 21:19 Prochlorperazine 10 Mg/2 Ml Vial IV Q4H PRN PRN Breakthrough nausea/vomiting Promethazine HCl 12.5 mg 08/10/24 09:37 08/11/24 05:47 Promethazine 25 Mg/Ml Syringe IM 12.5 mg Q4H PRN PRN Administration headache Senna 1 tablet 08/09/24 21:19 Senna Tablet PO BID PRN PRN constipation Sodium Chloride 10 - 40 ml 08/09/24 21:21 08/11/24 09:01 0.9% Saline Lock 10 Ml Syringe IV 10 ml UD PRN Administration SALINE FLUSH Temazepam 30 mg 08/09/24 22:00 08/10/24 22:01 Temazepam 15 Mg Capsule PO 30 mg QHS NINA Administration Tolterodine Tartrate 2 mg 08/10/24 10:00 08/11/24 09:03 Tolterodine Tartrate 2 Mg Cap.Sa PO 2 mg DAILY NINA Administration
[2024-08-11] MEDS: Ferrous Sulfate 325 MG Tablet PO (13:21)
--- NOTE | 2024-08-11 14:41 | NURSING ---
Neurologist from [facility] on the camera in [facility] room at this time with this RN present.
--- NOTE | 2024-08-11 15:03 | MRI_ITS ---
PROCEDURE: TECHNIQUE: Multiplanar, multi-sequence MRI of brain was performed without and with IV contrast. Reason: Headache FINDINGS: Examination is partially degraded by motion. BRAIN/PARENCHYMA: No evidence of acute infarction or acute intracranial hemorrhage. There are subcortical and periventricular white matter FLAIR hyperintensities, likely related to chronic microvascular ischemic disease. No abnormal post-contrast enhancement. EXTRA-AXIAL SPACES: Mild prominence of the bifrontal extra-axial spaces. No abnormal extra-axial fluid collections. Patent basal cisterns and foramen magnum. MIDLINE SHIFT: None. VENTRICLES: No hydrocephalus. SCALP SOFT TISSUES & CALVARIUM: No significant abnormality. VISUALIZED SINUSES & MASTOIDS: No air-fluid levels in the paranasal sinuses. The mastoid air cells are clear. ARTERIAL FLOW VOIDS: Preserved major arterial flow voids indicating gross patency. MRI/Brain W/WO Contrast IMPRESSION: 1. Mild chronic microvascular ischemic disease. 2. Otherwise, unremarkable MRI of the brain without and with contrast. Reading Location: [facility]
[2024-08-11 15:08] VITALS: BP 98/57; PULSE 81; RESP 19; TEMP 36.7; O2SAT 100
--- NOTE | 2024-08-11 15:17 | NURSING ---
This RN had taken purewick out this morning and pt has not memory of me taking it out and telling her to call to go to the bathroom instead of using the purewick. Pt was sitting in chair all day and chair was drenched with urine as well as some on the floor. Pt states she does not remember me telling her that the purewick was out.
--- NOTE | 2024-08-11 15:33 | CASEMGMT ---
SIMON LEONARD into pt room, pt was on the phone asking the person on the other line if he took the pills out of her purse. Asked pt if she would like SIMON LEONARD to come back and pt stated no. Pt hung up with caller. Pt reports she feels safe to go home when it is time. She states she lives alone, has DME cane and walker if she needs it but does not use. Pt is indep in bathing, dressing, laundry, meal prep and getting groceries. Pt denies any services needed at home. Pt has portable oxygen tank at me.
[2024-08-11 17:00] VITALS: BP 117/65; PULSE 90
[2024-08-11] MEDS: DiphenhydrAMINE 50 MG/ML Syringe 25 MG IV (17:17)
[2024-08-11] MEDS: Valproate Sodium 1,000 MG in Dextrose 5%-Water (50mL Bag) 50 ML 50 MG IV (17:18)
[2024-08-11] MEDS: dexAMETHasone 10 MG/ML Vial IV (17:26)
[2024-08-11] MEDS: proCHLORPERazine 10 MG/2 ML Vial IV (17:43)
[2024-08-11] MEDS: Magnesium Sulfate 4gm/100mL 4 GM/100 ML IV.SOLN. IV (17:46)
[2024-08-11 17:51] LABS: Bedside Glucose 322 mg/dL (74-106)
[2024-08-11 21:00] VITALS: BP 129/60; PULSE 99; RESP 16; TEMP 37; O2SAT 100
[2024-08-11] MEDS: Atorvastatin Calcium 80 MG Tablet PO (21:40)
[2024-08-11] MEDS: MELATONIN 10 MG TABLET PO (21:40)
[2024-08-11] MEDS: Temazepam 15 MG Capsule 30 MG PO (21:49)
[2024-08-12] VITALS (7 sets, daily range): BP systolic 100–126; BP diastolic 57–69; PULSE 86–99; RESP 16–18; TEMP 36.5–37.1; O2SAT 95–100; BMI 41.8
[2024-08-12] MEDS: Valproate Sodium 1,000 MG in Dextrose 5%-Water (50mL Bag) 50 ML 50 MG IV ×2 (00:29→06:40)
[2024-08-12] MEDS: proCHLORPERazine 10 MG/2 ML Vial IV ×2 (00:29→06:40)
[2024-08-12] MEDS: Ketorolac 15 MG/ML Vial IV (00:29)
[2024-08-12] MEDS: DiphenhydrAMINE 50 MG/ML Syringe 25 MG IV ×2 (00:29→06:40)
[2024-08-12 00:45] LABS: Bedside Glucose 340 mg/dL (74-106)
[2024-08-12] MEDS: Insulin Lispro 100 UNIT/ML INSULN.PEN SC ×5 (04:05→21:37)
[2024-08-12 04:46] LABS: Bedside Glucose 300 mg/dL (74-106)
[2024-08-12] MEDS: Insulin Glargine-YFGN 100 UNIT/ML Pen 10 UNIT SC ×2 (06:46→17:05)
[2024-08-12 06:52] LABS: Absolute Lymphocyte Count 0.44 X10^3/uL (0.83-4.51); Absolute Neutrophil Count 2.5 X10^3/uL (2.0-7.7); Hematocrit 30.6 % (37-47); Lymphocyte # 0.44 X10^3/ul (0.83-4.51); Lymphocyte % 14.3 % (19-41); Mean Corp Hgb Conc 29.4 g/dL (32-36); Mean Corpuscular Hgb 27.5 pg (27.0-32.0); Mean Corpuscular Volume 93.6 fL (81-99); Mean Platelet Vol. 9.9 fl (6.2-12.0); Monocyte# 0.09 X10^3/uL; Monocyte% 2.9 % (0-10); NRBC Flagged by Analyzer 0 % (0-5); Neutrophil # 2.52 X10^3/uL (2.7-7.7); Neutrophil % 81.8 % (47-70); POSITIVE DIFFERENTIAL YES; Platelet Count 125 K/mm3 (150-450); RBC Distribution Width CV 14.8 % (11.6-14.6); RBC Distribution Width SD 50.4 fl (35.1-43.9); Red Blood Count 3.27 M/mm3 (4.2-5.4); White Blood Count 3.1 K/mm3 (4.4-11.0)
[2024-08-12 07:18] LABS: Bedside Glucose 286 mg/dL (74-106)
[2024-08-12 07:22] LABS: Differential Indicated SCAN CRITERIA MET
[2024-08-12] MEDS: Budesonide Respules 0.5 MG/2 ML AMPUL.NEB. INHALATION (08:00)
[2024-08-12 08:20] LABS: Anion Gap 8 (5-15); BUN 12 mg/dL (4-19); BUN/Creat Ratio 15.2 RATIO (10-20); Calcium,Total 8.8 mg/dL (7.6-11.0); Carbon Dioxide 29.8 mmol/L (21.0-32.0); Chloride 102 mmol/L (98-108); Creatinine, Serum 0.78 mg/dL (0.70-1.20); EST Glomerular Filtration Rate 86 (>60); Estimated Creatinine Clearance 104.34 ml/min (50-250); Glucose 288 mg/dL (70-99); Potassium 4.3 mmol/L (3.3-5.1); Sodium Level 139 mmol/L (133-145)
[2024-08-12] MEDS: Carvedilol 3.125 MG TABLET PO ×2 (09:09→17:06)
[2024-08-12] MEDS: Pantoprazole Sodium 40 MG in 0.9% Normal Saline (100mL MB+) 100 ML 330 MG IV ×2 (09:11→21:22)
[2024-08-12] MEDS: Enoxaparin 40 MG/0.4 ML Syringe SC (09:13)
[2024-08-12 09:22] LABS: Basophilic Stippling 1+; Ovalocyte 1+; Platelet Estimate SLT DEC (ADEQ)
[2024-08-12 09:37] LABS: Bedside Glucose 266 mg/dL (74-106)
[2024-08-12] MEDS: Ferrous Sulfate 325 MG Tablet PO (12:18)
[2024-08-12] MEDS: Tolterodine Tartrate 2 MG CAP.SA PO (12:18)
[2024-08-12] MEDS: Na Biphos/Potassium Phosphate PACKET 1 PACKET PO ×2 (12:22→21:14)
--- NOTE | 2024-08-12 12:39 | CASEMGMT ---
SIMON LEONARD Readmission Note Previous Admission: 07/15/24-07/17/24 Diagnosis: AE asthma, long covid, diarrhea and [facility] DC Disposition: Home Current Admission: Admitted 08/11/24 Current Diagnosis: migaine, hyperglycemia Pt dc'd from index stay with no needs. Pt did not need a change in her oxygen rx. SIMON LEONARD into pt room (see also yesterday's note) pt states she was taking her medications at home as ordered. She reports she did follow up with Dr. Mariscal post dc. Pt denies any homegoing needs. She has a pox and will have a portable tank to go home with. DC Plan: home, follow for change in oxygen rx
[2024-08-12 13:58] LABS: Bedside Glucose 241 mg/dL (74-106)
--- NOTE | 2024-08-12 14:50 | PN.HOSP_ITS ---
Reason for Visit Reason for Visit: Diagnoses Headache, unspecified (08/11/24) Hyperglycemia, unspecified (08/11/24) Subjective Subjective Saw patient at bedside this morning. Patient was somnolent appearing. She weakly open her eyes on command but was unable to answer any questions for me and went back to sleep quickly. Protecting her airway without issue and otherwise laying back comfortably. Objective Data Objective Data Vital Signs: Vital Signs Temp Pulse Resp BP Pulse Ox O2 Del Method O2 Flow Rate 97.9 F 86 18 100/60 98 Nasal Cannula 3 08/12/24 14:04 08/12/24 14:04 08/12/24 14:04 08/12/24 14:04 08/12/24 11:43 08/12/24 14:04 08/12/24 14:04 Oxygen Flow Rate (L/min) 3 Oxygen Delivery Method Nasal Cannula Weight: 125.1 kg Body Mass Index (BMI) 41.8 Intake & Output: Intake and Output for Last 24 Hours 08/11/24 08/11/24 08/12/24 00:59 23:59 23:59 Intake Total 2986.67 / 2986.67 2845 / 2845 440 / 440 Output Total 1775 / 1775 1800 / 1950 400 / 400 Balance 1211.67 / 1211.67 1045 / 895 40 / 40 Lab / Micro Data 08/12/24 06:41 08/12/24 06:41 Labs: Laboratory Results - last 24 hr 08/11/24 17:11: POC Glucose 322 H 08/11/24 21:55: POC Glucose 340 H 08/12/24 04:04: POC Glucose 300 H 08/12/24 06:41: WBC 3.1 L, RBC 3.27 L, Hgb 9.0 L, Hct 30.6 L, MCV 93.6, MCH 27.5, MCHC 29.4 L, RDW Std Deviation 50.4 H, RDW Coeff of Jaun 14.8 H, Plt Count 125 L, MPV 9.9, Immature Gran % (Auto) 1.000 H, Neut % (Auto) 81.8 H, Lymph % (Auto) 14.3 L, [place] % (Auto) 2.9, Eos % (Auto) 0.0, Baso % (Auto) 0.0, Absolute Neuts (auto) 2.5, Absolute Lymphs (auto) 0.44 L, Nucleated RBC % 0, Platelet Estimate SLT DEC, Basophilic Stippling 1+, Ovalocytes 1+, Sodium 139, Potassium 4.3, Chloride 102, Carbon Dioxide 29.8, Anion Gap 8, BUN 12, Creatinine 0.78, Estim Creat Clear Calc 104.34, Est GFR (MDRD) Non-Af 86, BUN/Creatinine Ratio 15.2, Glucose 288 H, Calcium 8.8 08/12/24 06:45: POC Glucose 286 H 08/12/24 09:10: POC Glucose 266 H 08/12/24 11:32: POC Glucose 241 H Micro: Microbiology 08/09/24 18:30 Blood Culture (Wb) - Anticubital Left Blood Culture - Preliminary No growth in 48 hours. 08/09/24 18:15 Blood Culture (Wb) - Anticubital Left Blood Culture - Preliminary No growth in 48 hours. 08/09/24 18:34 Urine Catheter - Catheter Urine Culture - Final Culture exhibits no growth. 08/09/24 23:20 Mucosa - Nasopharyngeal Respiratory Panel (PCR) - Final Radiography Diagnostic Testing: Radiology Impression Brain MRI 08/11/24 15:03 IMPRESSION: 1. Mild chronic microvascular ischemic disease. 2. Otherwise, unremarkable MRI of the brain without and with contrast. Reading Location: [facility] Physical Exam Const no apparent distress Constitutional Narrative: Upper middle-aged female, class III obesity, somewhat somnolent appearing this morning, opening eyes weakly to command but not answering any questions for me, otherwise laying back comfortably in bed and protecting airway without issue. General Appearance: comfortable HEENT normocephalic, head/scalp atraumatic, hearing grossly normal bilaterally, nasal mucous membranes and turbinates normal and moist oral mucous membranes Eyes PERRL, EOMs intact bilaterally and conjunctivae normal Neck full ROM Chest inspection of chest normal Resp normal respiratory effort and no use of accessory muscles Resp Narrative: Breathing comfortably on 3 L nasal cannula at rest. Mildly diminished breath sounds bilaterally, no wheezing or crackles noted. Cardio regular rate, regular rhythm, no murmurs and peripheral pulses 2+ throughout GI normal to inspection, nondistended, normoactive bowel sounds, soft to palpation, non-tender and non-distended Back/Spine normal ROM Extremity normal to inspection, full ROM and no pedal edema Skin no rashes or lesions noted Assessment & Plan Assessment/Plan (1) Headache: PLAN: Plan Patient is a 63-year-old female who presented to [facility] ED on 08/09/2024 with intractable headache. 1. Intractable headaches ? Neurology following. Brain MRI without contrast on 08/11 with mild chronic microvascular changes, no acute findings. Given one-time doses of IV magnesium and IV Decadron 10 mg on 08/11. Also given migraine cocktail of Toradol 15 to 30 mg IV, Compazine 10 mg IV, Benadryl 25 mg IV and Depakote 1000 mg IV scheduled every 6 hours x 3 doses on 08/11 into the morning of 08/12. Patient somnolent on the morning 08/12, suspected secondary to this medication regimen. Discontinued these medications and will await return of patient's mentation prior to reassessing her headache. Per neurology, if no improvement with these treatments it is unlikely headaches will resolve well admitted and patient can be discharged home. 2. New onset type 2 diabetes mellitus ? Presented with hyperglycemia and A1c 8.9% on admit. Treating with IV Lantus 10 mg twice daily and sliding scale insulin with meals while inpatient. Suspect patient would have poor adherence to insulin injection therapy so we will likely plan to discharge on oral diabetic agents. 3. Acute toxic encephalopathy ? Noted to be somnolent on morning of 08/12. Opening eyes weakly on command but and not able to answer questions. Strongly suspect this is secondary to patient's headache cocktail regimen as noted above. Holding on any further medications for headache and monitor patient's mentation. If patient improved by tomorrow, should be fine for discharge home. 4. COPD/asthma/bronchiectasis/pulmonary hypertension/paralyzed diaphragm with chronic hypoxic respiratory failure ? On home 3 L nasal cannula at rest and with exertion. Stable on home oxygen while here. Continue home inhalers. Chronic medical conditions: ? Class III obesity with GENNARO: BMI 41 on admit. Continue BiPAP at night. Complicates hospital course, care and prognosis. ? Anxiety/depression: Continue home fluoxetine, alprazolam, temazepam at night. ? IBS: Continue home Linzess. ? GERD: Continue home PPI. ? Hypertension: Continue home Coreg. ? Hyperlipidemia: Continue home statin. ? Chronic iron deficiency anemia: Hemoglobin stable at baseline 9-10 since admission. Continue home iron supplement. DVT prophylaxis: Lovenox CODE STATUS: DNR CCA, DNI Expected disposition: Home, 1 to 2 days Total clinical time spent by myself addressing the patient's medical issues, reviewing all the data, and collaborating with patient's care team: 35 minutes. Charges/Coding Visit Charges Inpatient E&M: 80678 Subs Hosp L2
[2024-08-12 17:02] LABS: Bedside Glucose 277 mg/dL (74-106)
[2024-08-12] MEDS: Atorvastatin Calcium 80 MG Tablet PO (21:14)
[2024-08-12] MEDS: MELATONIN 10 MG TABLET PO (21:14)
[2024-08-12] MEDS: Temazepam 15 MG Capsule 30 MG PO (21:20)
[2024-08-12] MEDS: Acetaminophen 325 MG Tablet 650 MG PO (21:21)
[2024-08-12] MEDS: ALPRAZolam 0.5 MG Tablet PO (21:22)
[2024-08-12 21:39] LABS: Bedside Glucose 304 mg/dL (74-106)
[2024-08-12] MEDS: proCHLORPERazine 10 MG/2 ML Vial 5 MG IV (23:41)
[2024-08-13] MEDS: Ketorolac 15 MG/ML Vial IV (03:15)
[2024-08-13] MEDS: Acetaminophen 325 MG Tablet 650 MG PO (03:19)
[2024-08-13 03:27] VITALS: BP 126/68; PULSE 92; RESP 16; TEMP 36.7; O2SAT 98
[2024-08-13 04:00] VITALS: BMI 42.6
[2024-08-13 05:32] LABS: Absolute Neutrophil Count 2.1 X10^3/uL (2.0-7.7); Basophil# 0.01 X10^3/uL; Basophil% 0.3 % (0-1); Eosinophil# 0.04 X10^3/uL; Eosinophils% 1.2 % (0-5); Hematocrit 28.7 % (37-47); Hemoglobin 8.2 g/dL (12.0-15.0); Lymphocyte % 24.4 % (19-41); Mean Corp Hgb Conc 28.6 g/dL (32-36); Mean Corpuscular Hgb 27.5 pg (27.0-32.0); Mean Corpuscular Volume 96.3 fL (81-99); Mean Platelet Vol. 10.1 fl (6.2-12.0); Monocyte# 0.29 X10^3/uL; Monocyte% 8.8 % (0-10); NRBC Flagged by Analyzer 0 % (0-5); Neutrophil # 2.13 X10^3/uL (2.7-7.7); Platelet Count 131 K/mm3 (150-450); RBC Distribution Width CV 15.3 % (11.6-14.6); RBC Distribution Width SD 53.9 fl (35.1-43.9); Red Blood Count 2.98 M/mm3 (4.2-5.4); White Blood Count 3.3 K/mm3 (4.4-11.0)
[2024-08-13 06:05] LABS: Anion Gap 6 (5-15); BUN 17 mg/dL (4-19); BUN/Creat Ratio 19.7 RATIO (10-20); Calcium,Total 8.9 mg/dL (7.6-11.0); Carbon Dioxide 34.4 mmol/L (21.0-32.0); Chloride 100 mmol/L (98-108); Creatinine, Serum 0.87 mg/dL (0.70-1.20); EST Glomerular Filtration Rate 76 (>60); Glucose 234 mg/dL (70-99); Potassium 3.7 mmol/L (3.3-5.1); Sodium Level 140 mmol/L (133-145)
[2024-08-13] MEDS: Insulin Glargine-YFGN 100 UNIT/ML Pen 10 UNIT SC (06:35)
[2024-08-13] MEDS: Insulin Lispro 100 UNIT/ML INSULN.PEN SC ×2 (06:35→11:29)
[2024-08-13 06:59] LABS: Bedside Glucose 251 mg/dL (74-106)
[2024-08-13 07:40] VITALS: BP 134/85; PULSE 96; RESP 16; TEMP 37; O2SAT 100
[2024-08-13 08:00] VITALS: O2SAT 96
[2024-08-13] MEDS: ALPRAZolam 0.5 MG Tablet PO (09:40)
[2024-08-13] MEDS: Gabapentin 100 MG Capsule PO (09:40)
[2024-08-13] MEDS: Fluoxetine HCl 40 MG CAPSULE PO (09:40)
[2024-08-13] MEDS: Tolterodine Tartrate 2 MG CAP.SA PO (09:40)
[2024-08-13] MEDS: Carvedilol 3.125 MG TABLET PO (09:40)
[2024-08-13] MEDS: Pantoprazole Sodium 40 MG in 0.9% Normal Saline (100mL MB+) 100 ML 330 MG IV (09:41)
[2024-08-13] MEDS: Na Biphos/Potassium Phosphate PACKET 1 PACKET PO (09:41)
[2024-08-13] MEDS: 0.9% Saline Lock 10 ML Syringe IV (09:41)
[2024-08-13] MEDS: Enoxaparin 40 MG/0.4 ML Syringe SC (09:41)
[2024-08-13] MEDS: Ferrous Sulfate 325 MG Tablet PO (11:30)
[2024-08-13 11:45] LABS: Bedside Glucose 294 mg/dL (74-106)
[2024-08-13 12:55] LABS: Hematocrit 29.9 % (37-47); Hemoglobin 8.5 g/dL (12.0-15.0)
[2024-08-13 13:40] VITALS: BP 133/68; PULSE 95; RESP 14; TEMP 36.8; O2SAT 90
[2024-08-13 13:47] VITALS: O2SAT 100; O2SAT 86; O2SAT 94
--- NOTE | 2024-08-13 14:50 | CASEMGMT ---
SIMON LEONARD into pt room, provided pt with a rx for BGM with testing supplies. Pt is aware of where to get BGM and that the nurse will review it with her prior to dc. Spoke with pt nurse. Pt is also aware that should she have further questions a pharmacist at the drugstore of where she obtains the meter may be able to assist. Pt denies any further needs.
--- NOTE | 2024-08-13 15:04 | PCM.DC ---
Discharge Instructions Diet Discharge Diet: Low fat / Low cholesterol DC O2, CPAP, BIPAP needs Home O2 Discharge instructions: No Dressing / Incision Discharge Activity: Return to Normal Activity Dressing / Incision Call your doctor if you observe: Fever of 101 or Higher, Shortness of breath, Dizziness, Fainting spells, Swelling in the ankles, Chest pain and Increased palpitations (irregular heartbeat) Follow Up Care Test Results: Test results from this visit will be discussed in further detail at your follow-up appointment, if applicable. Discharge Plan Admission Admit Date/Time: 08/11/24 16:52 Attending Provider: Thong Sultana Primary Care Provider: Corin Mariscal Consulting Providers: Mckenzie Austin; Ashvin Bedolla; Hemant Stevenson; Porsche Michelle; Debora Torrez; Bea Xiao; Tray Beckett; Britni Padron; Dc Bailey; Rashaun Nam; Montez Reina; Ninoska Magallanes; Alexis Gaffney; Mari Calzada; Laci Vigil; Eboni Rao; Mau Quinones; Lucas Padilla; Wilman Hodge; Leandra Winkler; Evelia Willis; Pedro Lee; Vamsi Mendoza Instructions Additional Instructions / Restrictions: Follow-up with your PCP in 3 to 5 days to monitor your hemoglobin as well as your kidney function. You are started on metformin which is a diabetic medication that can cause some abdominal discomfort. Discharge Orders/Prescriptions Prescriptions: New metformin 500 mg tablet extended release 24 hr 500 mg PO DAILY 30 Days Qty: 30 0RF Continued Dulera 100-5 mcg/actuation HFA aerosol inhaler 2 puff inhalation BID Qty: 13 3RF pantoprazole 40 MG tablet 40 mg PO DAILY rosuvastatin 40 mg Tablet 40 mg PO QHS melatonin 10 mg Tablet 10 mg PO QHS carvedilol 3.125 mg Tablet 3.125 mg PO BID Qty: 60 0RF temazepam 30 mg capsule 30 mg PO QHS fluconazole 100 mg tablet 100 mg PO QWEEK cyclobenzaprine 5 mg tablet 5 mg PO TID PRN PRN (Reason: muscle spasm) sennosides [Aminata-guy] 8.6 mg tablet 8.6 mg PO BID PRN PRN (Reason: constipation) magnesium 200 mg tablet 200 mg PO DAILY ferrous sulfate [iron] 325 mg (65 mg iron) tablet 325 mg PO QDAY cyanocobalamin (vitamin B-12) [Vitamin B-12] 1,000 mcg tablet 1,000 mcg PO DAILY alprazolam 0.5 mg tablet 0.5 mg PO BID fluoxetine 40 mg capsule 40 mg PO DAILY Linzess 290 mcg capsule 290 mcg PO DAILY trospium 20 mg tablet 20 mg PO BID ergocalciferol (vitamin D2) 1,250 mcg (50,000 unit) capsule 1,250 mcg PO QWEEK albuterol sulfate 90 mcg/actuation HFA aerosol inhaler 1 puff inhalation Q6H PRN (Reason: shortness of breath or wheezing) Qty: 6.7 0RF Referrals / Follow Up: Corin Mariscal MD [Primary Care Provider] - Within 1 Week Johnathon Hobson DO [Med Staff - Active Staff] - Within 2 Weeks (For colonoscopy and EGD) Disposition Disposition (needs filled in before D/C Order can be placed): Home, Self Care
--- NOTE | 2024-08-13 15:42 | DS.PCM_ITS ---
Providers Date of Admission: 08/11/24 Primary Care Physician: Corin Mariscal MD Consultations 08/10/24 09:40 Consult: Tele-Neurology Routine Consulting Provider: [facility] Reason for Consult: Acute migrainous EMERGENT Consult: No MD Notified: Yes Date Notified: 08/10/24 Time Notified: 11:39 Method of Notification: Answering Service Comments:: dr. xiao Nursing Unit Staff Notify [facility] of Tele-Neurology Consult: Yes Reason For Visit: MIGRAINE, HYPERGLYCEMIA Diagnosis Discharge Diagnosis (1) Headache: Status: Acute Code(s): R51.9 - Headache, unspecified Medications at Discharge Home Medications pantoprazole 40 mg tablet,delayed release 40 mg PO DAILY ACID REFLUX 12/09/18 rosuvastatin 40 mg tablet 40 mg PO QHS CHOLESTEROL 07/19/21 melatonin 10 mg tablet 10 mg PO QHS SLEEP 07/16/22 carvedilol 3.125 mg tablet 3.125 mg PO BID HEART #60 tabs 07/20/22 mometasone-formoterol HFA 100 mcg-5 mcg/actuation aerosol inhaler (Dulera) 2 puff inhalation BID SHORTNESS OF BREATH/WHEEZING #13 grams 03/05/23 temazepam 30 mg capsule 30 mg PO QHS INSOMNIA 07/12/23 alprazolam 0.5 mg tablet 0.5 mg PO BID anxiety 01/28/24 fluoxetine 40 mg capsule 40 mg PO DAILY depression 01/28/24 linaclotide 290 mcg capsule (Linzess) 290 mcg PO DAILY bowel function 01/28/24 trospium 20 mg tablet 20 mg PO BID see md 01/28/24 ergocalciferol (vitamin D2) 1,250 mcg (50,000 unit) capsule 1,250 mcg PO QWEEK 07/15/24 albuterol sulfate 90 mcg/actuation aerosol inhaler 1 puff inhalation Q6H PRN shortness of breath or wheezing #6.7 grams 07/17/24 cyanocobalamin (vitamin B-12) 1,000 mcg tablet (Vitamin B-12) 1,000 mcg PO DAILY 08/09/24 cyclobenzaprine 5 mg tablet 5 mg PO TID PRN PRN muscle spasm 08/09/24 ferrous sulfate 325 mg (65 mg iron) tablet (iron) 325 mg PO QDAY 08/09/24 fluconazole 100 mg tablet 100 mg PO QWEEK 08/09/24 magnesium 200 mg tablet 200 mg PO DAILY 08/09/24 sennosides 8.6 mg tablet (Aminata-guy) 8.6 mg PO BID PRN PRN constipation 08/09/24 metformin 500 mg tablet,extended release 24 hr 500 mg PO DAILY 30 days #30 tabs 08/13/24 Hospital Course Operations None Procedures None Summary of Care Provided Minutes Spent on Discharge: 36 Hospital Course: Per HPI: The patient is a 63 y/o F w/ PMHx: Obesity, GENNARO on BIPAP, Chronic anemia/chronic iron deficiency, CKD stage II per GFR trending, EtOH abuse, Former tobacco use, COPD/Asthma/Bronchiectasis/RLS/Pulmonary HTN and paralzed hemidiaphragm w/ Chronic Hypoxic Respiratory Failure (5L NC), Anxiety and Depression, GERD, HTN, HLD, Hx Long COVID, Hx VTE (DVT), Dementia unclear type and extent with unclear behavioral disturbance history who presents to the [facility] ED on 08/09/24 with history of gradual persistent bifrontal headache starting the day prior with nausea without emesis with history of intermittent headaches for the last 1 to 2 years and in chart history noted chronic migraines attempting [id number] Tylenol and ibuprofen without much relief with [place] prescribed a month prior secondary to headaches but unfortunately she has been sick for the last 1 to 2 months initially having COVID now with long-haul COVID symptoms with sinus drainage and respiratory symptoms that have been persistent with at least 3 rounds of antibiotics and steroids and given it would not resolve prompted eventual ED evaluation. Workup in the ED included T98.2 Temporal, heart rate 99, BP 142/63, respiratory rate 18, 98% on 4 L nasal cannula most recently noted to be on 3 L with most recent repeat vital signs although last note notes 5L NC respiratory rate 24, 96% on 4.5 L nasal cannula, CBC with WC 3.5, hemoglobin 9.0, MCV 91.8, platelet 149 without marked shift, coags unremarkable aside PTT 22.6, CMP with chloride 97, come back side 33.7, BUN/creatinine 12/0.91, GFR 71, glucose 560, lactic acid 1.2, hepatic profile not marked appearing, urinalysis with clear appearing urine, specific every 1.010, protein 30, glucose 1000, ketone negative, occult blood 10, negative nitrite, negative leukocyte esterase with no evidence of UTI, chest x-ray with evidence of elevated right hemidiaphragm with bibasilar atelectasis with possible superimposed infection unable to be excluded. In the ED patient ministered 1 L normal saline, diphenhydramine 25 mg IV x 1, insulin lispro 12 units subcu x 1, Toradol 50 mg IV x 1, prochlorperazine 5 mg IV x 1. Hospital Course: 1. Intractable headaches ? Neurology following. Brain MRI without contrast on 08/11 with mild chronic microvascular changes, no acute findings. Given one-time doses of IV magnesium and IV Decadron 10 mg on 08/11. Also given migraine cocktail of Toradol 15 to 30 mg IV, Compazine 10 mg IV, Benadryl 25 mg IV and Depakote 1000 mg IV scheduled every 6 hours x 3 doses on 08/11 into the morning of 08/12. Patient somnolent on the morning 08/12, suspected secondary to this medication regimen. Discontinued these medications and will await return of patient's mentation prior to reassessing her headache. Per neurology, if no improvement with these treatments it is unlikely headaches will resolve well admitted and patient can be discharged home. 08/13/2024: This is resolved, there is no further workup needed for her headaches, she has had repeated admissions for headaches and repeated workups that are all negative. I discussed with her the plan for discharge today she expressed understanding of the risk and benefits of going home and she would like to go home today. Of note her hemoglobin has steadily dropped and she says that she has been having intermittent GI bleeding for the last 6 to 8 months that comes and goes. She has a family history of colon cancer however she has refused scopes in the past. Hemoglobin today was 8.2 on recheck it was 8.5 indicating stability. I discussed with her the potential for an EGD versus colonoscopy while here in the hospital but it could be several days as she would need prep and there to have to be time for scope and she has elected to go home with outpatient follow-up. 2. New onset type 2 diabetes mellitus ? Presented with hyperglycemia and A1c 8.9% on admit. Treating with IV Lantus 10 mg twice daily and sliding scale insulin with meals while inpatient. Suspect patient would have poor adherence to insulin injection therapy so we will likely plan to discharge on oral diabetic agents. 08/13/2024: Will place her on metformin 500 mg p.o. daily with outpatient follow- up, renal function can support this medication at this time. 3. Acute toxic encephalopathy ? Noted to be somnolent on morning of 08/12. Opening eyes weakly on command but and not able to answer questions. Strongly suspect this is secondary to patient's headache cocktail regimen as noted above. Holding on any further medications for headache and monitor patient's mentation. If patient improved by tomorrow, should be fine for discharge home. 4. COPD/asthma/bronchiectasis/pulmonary hypertension/paralyzed diaphragm with chronic hypoxic respiratory failure ? On home 3 L nasal cannula at rest and with exertion. Stable on home oxygen while here. Continue home inhalers. Chronic medical conditions: ? Class III obesity with GENNARO: BMI 41 on admit. Continue BiPAP at night. Complicates hospital course, care and prognosis. ? Anxiety/depression: Continue home fluoxetine, alprazolam, temazepam at night. ? IBS: Continue home Linzess. ? GERD: Continue home PPI. ? Hypertension: Continue home Coreg. ? Hyperlipidemia: Continue home statin. ? Chronic iron deficiency anemia: Hemoglobin stable at baseline 9-10 since admission. Continue home iron supplement. Her hemoglobin dropped to 8.2 and corrected 8.5 this afternoon, this is likely related to the IV fluid she was received here in the hospital. Will have her follow-up for repeat hemoglobin by her PCP as well as outpatient follow-up with gastroenterology. Physical Exam Narrative General: Alert, Oriented x3, Cooperative, No apparent distress HEENT: Atraumatic, PERRLA, EOMI, Normocephalic Oral: Moist Mucosa Neck: Supple, No JVD Lungs: Diminished, Normal air movement, No rhonchi, No wheeze, No rales Cardiovascular: Regular rate, Regular Rhythm, Normal S1, Normal S2, No murmurs Abdomen: Soft, Non Tender, Non-Distended, No Hepato-splenomegaly Extremities: No edema, Capillary Refill Less than 3 Seconds Skin: No rashes, No breakdown Musculoskeletal: No Tenderness to Palpation of Joints or Extremities Neurological: No focal neurological deficits, Motor Exam 5/5 strength throughout, Sensory exam intact to light touch and pain Psych/Mental Status: Normal affect, appropriate Weight / BMI Weight Weight: 281 lb 4.957 oz Body Mass Index (BMI) 42.6 ABG / Lab / Microbiology Data 08/13/24 12:50 08/13/24 04:12 Laboratory: Laboratory Results - last 24 hr 08/12/24 16:21: POC Glucose 277 H 08/12/24 21:15: POC Glucose 304 H 08/13/24 04:12: WBC 3.3 L, RBC 2.98 L, Hgb 8.2 L, Hct 28.7 L, MCV 96.3, MCH 27.5, MCHC 28.6 L, RDW Std Deviation 53.9 H, RDW Coeff of Jaun 15.3 H, Plt Count 131 L, MPV 10.1, Immature Gran % (Auto) 0.300, Neut % (Auto) 65.0, Lymph % (Auto) 24.4, Dewitt % (Auto) 8.8, Eos % (Auto) 1.2, Baso % (Auto) 0.3, Absolute Neuts (auto) 2.1, Absolute Lymphs (auto) 0.80 L, Nucleated RBC % 0, Sodium 140, Potassium 3.7, Chloride 100, Carbon Dioxide 34.4 H, Anion Gap 6, BUN 17, Creatinine 0.87, Estim Creat Clear Calc 94.60, Est GFR (MDRD) Non-Af 76, BUN/Creatinine Ratio 19.7, Glucose 234 H, Calcium 8.9 08/13/24 06:33: POC Glucose 251 H 08/13/24 11:27: POC Glucose 294 H 08/13/24 12:50: Hgb 8.5 L, Hct 29.9 L Microbiology: Microbiology 08/09/24 18:30 Blood Culture (Wb) - Anticubital Left Blood Culture - Preliminary No growth in 48 hours. 08/09/24 18:15 Blood Culture (Wb) - Anticubital Left Blood Culture - Preliminary No growth in 48 hours. 08/09/24 18:34 Urine Catheter - Catheter Urine Culture - Final Culture exhibits no growth. 08/09/24 23:20 Mucosa - Nasopharyngeal Respiratory Panel (PCR) - Final D/C Instructions Discharge Diet: Low fat / Low cholesterol Call your doctor if you observe: Fever of 101 or Higher, Shortness of breath, Dizziness, Fainting spells, Swelling in the ankles, Chest pain and Increased palpitations (irregular heartbeat) DC O2, CPAP, BIPAP Needs Home O2 Discharge instructions: No Meaningful Use Info Meaningful Use Meaningful Use Diagnoses (Choose all that apply): None applicable Ischemic Stroke Statin Dosing Therapy Reference: STATIN DOSE THERAPY REFERENCE: * Patients > 75 years receive moderate or high dose statin therapy. * Patients 75 years or YOUNGER should receive HIGH intensity statin dose unless contraindicated. You will be required to document reason for non-treatment if statin daily dose does not meet guidelines. HIGH DOSE STATIN THERAPY DAILY Atorvastatin > than or = to 40 mg Rosuvastatin > than or = to 20 mg Amlodipine + Atorvastatin > than or = to 2.5/40 mg Ezetimibe + Simvastatin 10/80 mg Simvastatin 80mg Discharge Plan Admission Admit Date/Time: 08/11/24 16:52 Attending Provider: Thong Sultana Primary Care Provider: Corin Mariscal Consulting Providers: Mckenzie Austin; Ashvin Bedolla; Hemant Stevenson; Porsche Michelle; Debora Torrez; Bea Xiao; Tray Beckett; Britni Padron; Dc Bailey; Rashaun Nam; Montez Reina; Ninoska Magallanes; Alexis Gaffney; Mari Calzada; Laci Vigil; Eboni Rao; Mau Quinones; Lucas Padilla; Wilman Hodge; Leandra Winkler; Evelia Willis; Pedro Lee; Vamsi Mendoza Instructions Additional Instructions / Restrictions: Follow-up with your PCP in 3 to 5 days to monitor your hemoglobin as well as your kidney function. You are started on metformin which is a diabetic medication that can cause some abdominal discomfort. Discharge Orders/Prescriptions Prescriptions: New metformin 500 mg tablet extended release 24 hr 500 mg PO DAILY 30 Days Qty: 30 0RF Continued Dulera 100-5 mcg/actuation HFA aerosol inhaler 2 puff inhalation BID Qty: 13 3RF pantoprazole 40 MG tablet 40 mg PO DAILY rosuvastatin 40 mg Tablet 40 mg PO QHS melatonin 10 mg Tablet 10 mg PO QHS carvedilol 3.125 mg Tablet 3.125 mg PO BID Qty: 60 0RF temazepam 30 mg capsule 30 mg PO QHS fluconazole 100 mg tablet 100 mg PO QWEEK cyclobenzaprine 5 mg tablet 5 mg PO TID PRN PRN (Reason: muscle spasm) sennosides [Aminata-guy] 8.6 mg tablet 8.6 mg PO BID PRN PRN (Reason: constipation) magnesium 200 mg tablet 200 mg PO DAILY ferrous sulfate [iron] 325 mg (65 mg iron) tablet 325 mg PO QDAY cyanocobalamin (vitamin B-12) [Vitamin B-12] 1,000 mcg tablet 1,000 mcg PO DAILY alprazolam 0.5 mg tablet 0.5 mg PO BID fluoxetine 40 mg capsule 40 mg PO DAILY Linzess 290 mcg capsule 290 mcg PO DAILY trospium 20 mg tablet 20 mg PO BID ergocalciferol (vitamin D2) 1,250 mcg (50,000 unit) capsule 1,250 mcg PO QWEEK albuterol sulfate 90 mcg/actuation HFA aerosol inhaler 1 puff inhalation Q6H PRN (Reason: shortness of breath or wheezing) Qty: 6.7 0RF Referrals / Follow Up: Corin Mariscal MD [Primary Care Provider] - Within 1 Week Johnathon Hobson DO [Med Staff - Active Staff] - Within 2 Weeks (For colonoscopy and EGD) Disposition Disposition (needs filled in before D/C Order can be placed): Home, Self Care Charges/Coding Visit Charges Inpatient E&M: 23273 Disch Hosp >30min
--- NOTE | 2024-08-13 16:39 | NURSING ---
All documentation by psychiatric nursing assistant Jasbir Vera reviewed by nursing teacher Muna Culver BSN, RN.
== END 2024-08-13 16:08 | disposition home or self-care (01) | DRG 102 ==
LOC: ED 20:35 → MS3 20:42
PROVIDERS: Hospitalist; Internal Medicine; Physician Assistant; Admitting Provider Family Medicine; Emergency Provider Emergency Medicine; PCP Family Medicine; Referring Provider Family Medicine; Visit Provider Family Medicine
DX: G43.919 Migraine, unspecified, intractable, without status migrainosus (principal); G92.9 Unspecified toxic encephalopathy; J96.11 Chronic respiratory failure with hypoxia; Z68.41 Body mass index [BMI] 40.0-44.9, adult; D69.6 Thrombocytopenia, unspecified; I27.20 Pulmonary hypertension, unspecified; J98.6 Disorders of diaphragm; Z66 Do not resuscitate; F03.90 Unspecified dementia, unspecified severity, without behavioral disturbance, psychotic disturbance, mood disturbance, and anxiety; E11.22 Type 2 diabetes mellitus with diabetic chronic kidney disease; J47.9 Bronchiectasis, uncomplicated; D50.9 Iron deficiency anemia, unspecified; I12.9 Hypertensive chronic kidney disease with stage 1 through stage 4 chronic kidney disease, or unspecified chronic kidney disease; K21.9 Gastro-esophageal reflux disease without esophagitis; N18.2 Chronic kidney disease, stage 2 (mild); G47.33 Obstructive sleep apnea (adult) (pediatric); E78.5 Hyperlipidemia, unspecified; F41.8 Other specified anxiety disorders; K58.9 Irritable bowel syndrome, unspecified; E11.65 Type 2 diabetes mellitus with hyperglycemia; J45.20 Mild intermittent asthma, uncomplicated; Z99.81 Dependence on supplemental oxygen; E66.813 Obesity, class 3; Z79.51 Long term (current) use of inhaled steroids; Z87.891 Personal history of nicotine dependence; Z90.710 Acquired absence of both cervix and uterus; Z79.899 Other long term (current) drug therapy; Z90.49 Acquired absence of other specified parts of digestive tract; Z98.51 Tubal ligation status; J44.89 Other specified chronic obstructive pulmonary disease; Z68.36 Body mass index [BMI] 36.0-36.9, adult
CPT/HCPCS: 36415; 70553; 71046; 80048; 80053; 80061; 81001; 82962; 83036; 83605; 83735; 84100; 84145; 85014; 85018; 85025; 85610; 85730; 87040; 87086; 87633; 94640; 97802; 97803; 99285; A9575; A4216; J2405

== ENCOUNTER → 2024-08-19 | Outpatient (CLI) | payer MEDICARE, MEDICAID, SELFPAY ==
[2024-08-19 15:01] LABS: Hemoglobin 9.7 g/dL (12.0-15.0)
== END | disposition home or self-care (01) ==
LOC: MFPLAB 12:29
PROVIDERS: PCP Family Medicine; Referring Provider Family Medicine; Visit Provider Family Medicine
DX: D64.9 Anemia, unspecified (principal)
CPT/HCPCS: 36415; 85014; 85018

== ENCOUNTER 2024-09-30 17:19 | Emergency (ER) | payer MEDICARE, MEDICAID, SELFPAY ==
[2024-09-30 17:21] VITALS: BP 91/61; PULSE 102; RESP 18; TEMP 37.1; O2SAT 94
[2024-09-30 17:23] VITALS: BMI 40.2
--- NOTE | 2024-09-30 18:42 | RAD_ITS ---
PROCEDURE: CHEST PA AND LATERAL 09/30/2024 REASON FOR EXAM: COUGH, CONGESTION, WHEEZING TECHNIQUE: Frontal and lateral views of the chest. COMPARISON: None FINDINGS: Hardware: None Heart: Heart size is mildly enlarged. Mediastinum: The mediastinal contour is unremarkable. Lungs: Right hemidiaphragmatic elevation. Bilateral interstitial thickening. Bibasilar atelectasis. No pneumothorax. No pleural effusion. Bones: Degenerative changes are identified within the thoracic spine. Thoracolumbar fusion. RAD/Chest PA and Lateral IMPRESSION: Findings suggestive of vascular congestion. Reading Location: [facility]
[2024-09-30 18:53] VITALS: PULSE 97; RESP 20
[2024-09-30] MEDS: Albuterol 2.5 MG/3 ML VIAL.NEB. INHALATION ×2 (18:53→19:14)
[2024-09-30] MEDS: Ipratropium/Albuterol Sulfate 3 ML AMPUL.NEB INHALATION (18:53)
[2024-09-30] MEDS: predniSONE 20 MG Tablet 60 MG PO (19:05)
[2024-09-30 19:17] LABS: Absolute Lymphocyte Count 0.65 X10^3/uL (0.83-4.51); Absolute Neutrophil Count 5.9 X10^3/uL (2.0-7.7); Basophil# 0.01 X10^3/uL; Basophil% 0.1 % (0-1); Hematocrit 36.7 % (37-47); Hemoglobin 10.9 g/dL (12.0-15.0); Lymphocyte # 0.65 X10^3/ul (0.83-4.51); Lymphocyte % 9.4 % (19-41); Mean Corp Hgb Conc 29.7 g/dL (32-36); Mean Corpuscular Hgb 26.9 pg (27.0-32.0); Mean Corpuscular Volume 90.6 fL (81-99); Mean Platelet Vol. 11.1 fl (6.2-12.0); Monocyte# 0.29 X10^3/uL; Monocyte% 4.2 % (0-10); NRBC Flagged by Analyzer 0 % (0-5); Neutrophil # 5.94 X10^3/uL (2.7-7.7); Neutrophil % 85.9 % (47-70); Platelet Count 148 K/mm3 (150-450); RBC Distribution Width CV 13.9 % (11.6-14.6); RBC Distribution Width SD 46.1 fl (35.1-43.9); Red Blood Count 4.05 M/mm3 (4.2-5.4); White Blood Count 6.9 K/mm3 (4.4-11.0)
[2024-09-30 19:19] VITALS: BP 121/80; PULSE 98; RESP 18; O2SAT 98
[2024-09-30 19:29] LABS: Erythrocyte Sedimentation Rate < 1 mm/hr (0-30)
--- NOTE | 2024-09-30 19:52 | CPS ---
[1853] x2 Albuterol given to pt. in ER
[2024-09-30 20:11] LABS: ALB/GLOB Ratio 1.9 RATIO (0.9-2.4); AST(SGOT) 25 U/L (<=31); Alanine Aminotransfer ALT/SGPT 22 U/L (<=34); Albumin, Serum 4.4 g/dL (3.4-4.8); Alkaline Phosphatase 93 U/L (35-104); Anion Gap 11 (5-15); BUN 17 mg/dL (4-19); BUN/Creat Ratio 14.4 RATIO (10-20); Calcium,Total 9.9 mg/dL (7.6-11.0); Chloride 100 mmol/L (98-108); Creatinine, Serum 1.17 mg/dL (0.70-1.20); EST Glomerular Filtration Rate 53 (>60); Globulin 2.3 g/dL (2.2-4.2); Glucose 171 mg/dL (70-99); Potassium 3.7 mmol/L (3.3-5.1); Protein, Total 6.6 g/dL (5.9-8.4); Sodium Level 139 mmol/L (133-145); Total Bilirubin 0.74 mg/dL (0.00-1.30)
[2024-09-30 20:13] LABS: Lactic Acid 2.3 mmol/L (0.0-2.0)
--- NOTE | 2024-09-30 20:21 | EX.ED.DYSGE1 ---
HPI History of Present Illness Chief Complaint: Headache Detail of Chief Complaint: Headaches and upper respiratory symptoms. Informant: patient Onset/Context/Timing Onset: Yesterday (Respiratory symptoms started yesterday.) and Month(s) (Headache is a chronic issue) Context: Sudden Onset Timing: Continuous Quality: Upper respiratory tract infectious symptoms Location: Bitemporal headache and respiratory Current Severity: Moderate Maximum Severity: Moderate Worsened by: Nothing specific Relieved by: Nothing Associated Symptoms Associated Symptoms: HPI near Narrative Narrative: Patient is 63-year-old woman. She has history of depression, GERD, type 2 diabetes, anxiety, hypertension, sleep apnea who is BiPAP dependent. Alcohol abuse, medical marijuana use, DVT right lower extremity, essential hypertension who presents because of respiratory symptoms. She was recently diagnosed with COVID-19 long-hauler syndrome. She also has history of depression which she denied to me. She contacted her primary care physician. He called in prescription for doxycycline and prednisone last evening. She informing that if she did not feel better he told her to come to the emergency department. She does not feel better and presents to the emergency department. She complains of bitemporal headache. She denies double vision blurred vision loss of vision. She denies ringing ears decreased hearing. She denies sore throat or change in voice. She denies chest pain. She does have a cough. She does complain of shortness of breath and wheezing. She denies abdominal pain, nausea, vomit or diarrhea. She denies dysuria, frequency, urgency or hematuria. Prior similar symptoms: Yes (This is her fifth visit this year. She has been seen for hyperglycemia, as) Recent Illness/Hospitalization: Yes [facility] Medical History Chronic pain CPAP (continuous positive airway pressure) dependence Contusion of left hip Contusion of rib on right side Contusion of left shoulder Contusion of scalp Closed fracture of fibula, proximal, left Pyuria Substance abuse Kidney disease Former smoker BiPAP (biphasic positive airway pressure) dependence Sleep apnea On home oxygen therapy Hypertension Dementia Alcohol withdrawal Alcohol abuse Admitted to alcohol detoxification center Medical marijuana use Frequent falls DVT (deep venous thrombosis) Right ventricular systolic dysfunction Right bundle branch block (RBBB) Essential (primary) hypertension Sepsis Abdominal pain Migraine Chronic renal insufficiency, stage I Pancytopenia Respiratory tract infection due to COVID-19 virus Endocarditis Gastritis Restrictive lung disease Colitis Osteoarthritis Chronic renal failure Depression GENNARO (obstructive sleep apnea) Pneumonia Bronchitis Asthma COPD (chronic obstructive pulmonary disease) Morbid obesity HLD (hyperlipidemia) Bronchiectasis Idiopathic right ventricular dilation Thrombocytopenia Leukopenia Abnormal liver CT Anemia Anxiety Respiratory insufficiency Respiratory failure with hypoxia Colitis with rectal bleeding History of umbilical hernia History of diarrhea Arthritis Gastroesophageal reflux disease Home Medications ?Medication ?Instructions ?Recorded ?Last Taken ?Type pantoprazole 40 mg tablet,delayed 40 mg PO DAILY ACID REFLUX 12/09/18 07/12/24 History release rosuvastatin 40 mg tablet 40 mg PO QHS CHOLESTEROL 07/19/21 07/12/24 History melatonin 10 mg tablet 10 mg PO QHS SLEEP 07/16/22 07/12/24 History carvedilol 3.125 mg tablet 3.125 mg PO BID HEART #60 tabs 07/20/22 07/12/24 Rx mometasone-formoterol HFA 100 2 puff inhalation BID SHORTNESS OF 03/05/23 07/12/24 Rx mcg-5 mcg/actuation aerosol BREATH/WHEEZING #13 grams inhaler (Dulera) temazepam 30 mg capsule 30 mg PO QHS INSOMNIA 07/12/23 07/12/24 History alprazolam 0.5 mg tablet 0.5 mg PO BID anxiety 01/28/24 07/12/24 History fluoxetine 40 mg capsule 40 mg PO DAILY depression 01/28/24 07/12/24 History linaclotide 290 mcg capsule 290 mcg PO DAILY bowel function 01/28/24 07/12/24 History (Linzess) trospium 20 mg tablet 20 mg PO BID see 01/28/24 07/12/24 History ergocalciferol (vitamin D2) 1,250 1,250 mcg PO QWEEK 07/15/24 Unknown History mcg (50,000 unit) capsule albuterol sulfate 90 mcg/actuation 1 puff inhalation Q6H PRN 07/17/24 Unknown Rx aerosol inhaler shortness of breath or wheezing #6.7 grams cyanocobalamin (vitamin B-12) 1,000 mcg PO DAILY 08/09/24 Unknown History 1,000 mcg tablet (Vitamin B-12) cyclobenzaprine 5 mg tablet 5 mg PO TID PRN PRN muscle spasm 08/09/24 Unknown History ferrous sulfate 325 mg (65 mg 325 mg PO QDAY 08/09/24 Unknown History iron) tablet (iron) fluconazole 100 mg tablet 100 mg PO QWEEK 08/09/24 Unknown History magnesium 200 mg tablet 200 mg PO DAILY 08/09/24 Unknown History sennosides 8.6 mg tablet (Aminata-guy) 8.6 mg PO BID PRN PRN constipation 08/09/24 Unknown History metformin 500 mg tablet,extended 500 mg PO DAILY 30 days #30 tabs 08/13/24 Unknown Rx release 24 hr Allergy/AdvReac Type Severity Reaction Status Date / Time house dust Allergy ITCHY EYES Verified 09/30/24 17:25 Penicillins Allergy Hives Verified 08/09/24 17:18 Seasonal Allergies: Uncoded Allergy ITCHY EYES Verified 09/30/24 17:25 Family History Father Colon cancer Mother Cancer pancreatic Surgical History History of tubal ligation History of appendectomy History of hysterectomy History of cholecystectomy Social History household members: none Smoking Status: Former smoker Tobacco: How many years used: 25 how long ago did patient quit smokin, 0.5ppd second hand exposure: Yes alcohol intake: former substance use type: does not use ROS ROS ED Constitutional Constitutional ED: Denies chills, fever(s), subjective or sweats Eyes Eyes: Denies blurry vision, change in vision or diplopia ENT ENT ED: Reports rhinorrhea; Denies ear pain or sore throat Cardiovascular Cardiovascular: Denies chest pain, orthopnea, palpitations or paroxysmal nocturnal dyspnea Respiratory/Chest Respiratory/Chest: Reports cough, dyspnea, dyspnea on exertion and other Details: Wheezing. Patient is oxygen dependent. ; Denies orthopnea, paroxysmal nocturnal dyspnea or sputum Gastrointestinal Gastrointestinal: Reports abdominal pain; Denies diarrhea, nausea or vomiting Genitourinary Genitourinary ED: Denies dysuria, hematuria or urinary frequency Musculoskeletal Musculoskeletal: Denies arthralgias or myalgias Integumentary Denies abscess or rash Psychiatric Psychiatric: Reports anxiety, depression and other Details: Per review of prior records. Endocrine Endocrinology: Denies cold intolerance or heat intolerance Hematologic/Lymphatic Hematologic/Lymphatic: Reports systems reviewed and no addt'l complaints, except as documented EXAM Physical Exam Const Vital Signs: 09/30/24 17:21 09/30/24 18:53 09/30/24 19:19 Temperature 98.7 F Temperature Source Oral Pulse Rate 102 H 97 98 Respiratory Rate 18 20 H 18 Respiratory Pattern Normal Blood Pressure 91/61 121/80 H Blood Pressure Mean 71 93 Pulse Ox 94 98 Oxygen Delivery Method Room Air 09/30/24 20:59 09/30/24 21:00 Temperature 98.1 F Temperature Source Pulse Rate 95 95 Respiratory Rate 16 15 Respiratory Pattern Blood Pressure 125/71 H Blood Pressure Mean 89 Pulse Ox 95 95 Oxygen Delivery Method Room Air Positive well nourished and well developed Constitutional Narrative: BMI is 40.3. Patient is fidgety. She cannot sit still. She began to cry several times during the history and physical. General Appearance ED: well developed; Negative for pallor HEENT HEENT Narrative: Head is atraumatic normocephalic. TMs normal. Ears normal. Nares patent. Posterior pharynx erythema or exudate. Uvula midline. No deviation of the tongue with protrusion. Eyes PERRL and EOMs intact bilaterally General Eye ED: Negative for pale conjunctiva or scleral icterus Neck no lymphadenopathy, supple and no JVD Chest Wall inspection of chest normal and palpation of chest normal Resp normal respiratory effort and No clear to auscultation bilaterally Auscultation: wheezes expiratory wheezes and throughout Cardio regular rate, regular rhythm, S1 normal heart sound, S2 normal heart sound and no murmurs GI normal to inspection, nondistended, normoactive bowel sounds, non-tender and non-distended; Negative for hepatosplenomegaly or no masses Back/Spine no CVA tenderness Extremity normal to inspection General Extremety ED: Negative for edema or tenderness General Extremity: Negative for edema Neuro oriented x3, CN's II-XII intact bilaterally and no sensory deficits noted Sensorium / Orientation: alert Psych Mood & Affect: depressed and anxious Skin no rashes or lesions noted, no wounds and skin turgor normal General Skin Exam: Negative for jaundice or pallor MDM MDM MDM Narrative Medical decision making narrative: Case management was consulted. Feel multitude of her symptoms are due to depression. She was treated with albuterol for her wheezing. She did receive ketorolac for headache once her renal function returned to be normal. Case management was consulted. History & Record Review Additional record(s) reviewed:: Prior ED visit and Prior labs Lab Data Attestation: I reviewed the patient's lab results. Lab results narrative: White count is normal. H&H is 10.9 and 36.7. H&H is higher than it was on August 19, 2024. Competence of metabolic panel of his elevated glucose of 171 with a normal CO2 anion gap. Lactate elevated 2.3. Suspect this is due to metformin. Liver enzymes are normal. Lactate elevated. Suspect this is due to metformin. Labs: Laboratory Results - last 24 hr 09/30/24 19:02 WBC 6.9 RBC 4.05 L Hgb 10.9 L Hct 36.7 L MCV 90.6 MCH 26.9 L MCHC 29.7 L RDW Std Deviation 46.1 H RDW Coeff of Jaun 13.9 Plt Count 148 L MPV 11.1 Immature Gran % (Auto) 0.400 Neut % (Auto) 85.9 H Lymph % (Auto) 9.4 L [place] % (Auto) 4.2 Eos % (Auto) 0.0 Baso % (Auto) 0.1 Absolute Neuts (auto) 5.9 Absolute Lymphs (auto) 0.65 L Nucleated RBC % 0 ESR < 1 Sodium 139 Potassium 3.7 Chloride 100 Carbon Dioxide 28.0 Anion Gap 11 BUN 17 Creatinine 1.17 Est GFR (MDRD) Non-Af 53 L BUN/Creatinine Ratio 14.4 Glucose 171 H Lactic Acid 2.3 H* Calcium 9.9 Total Bilirubin 0.74 AST 25 ALT 22 Alkaline Phosphatase 93 Total Protein 6.6 Albumin 4.4 Globulin 2.3 Albumin/Globulin Ratio 1.9 Radiography Chest X-Ray - ED: 2 View and Read by ED Physician (2 view chest x-ray) reviewed interpreted by me as negative. Some poor quality film. There is limited respiratory volume. She has an elevated right hemidiaphragm. This is unchanged from August 09, 2024. Multilevel fusion noted on lateral as well as PA. There is no cephalization. There is no curl) Diagnostic Testing: Clinical Impression(s) from Imaging Studies Chest X-Ray 09/30/24 18:42 IMPRESSION: Findings suggestive of vascular congestion. Reading Location: [facility] The radiologist interpretation was reviewed. I am in disagreement. Patient has poor inspiratory volume and unable to say that she has vascular congestion especially since her symptoms are infectious and not cardiac or consistent with CHF i.e. orthopnea, PND or edema. Treatment and Re-Evaluation :: Verbal order was placed for ketorolac for patient's headache. I was told several times the patient is requesting morphine. Patient will not receive morphine. Patient did not receive morphine because she has a past history of polysubstance abuse. Candi did see her for case management. Patient was literally walking she was seen by case management. She was told that she just was checking on her send she has been here for a long time. Patient is very frustrated because she has not been as active and has gained weight since her back surgery a year ago by Dr. Capmoverde at the [facility]. She is now recently been diagnosed with long hauler syndrome. Comments:: Patient was told that she has upper respiratory infection. There is no evidence of pneumonia. Plan is to discharge to home. She had no questions. She was discharged to home. Discharge Plan Triage Chief Complaint: Headache Other Complaint: Abn Labs ED Provider: Junior Salter Dx/Rx/DC Orders Clinical Impression: Upper respiratory infection with cough and congestion, Shortness of breath, Essential (primary) hypertension, Left temporal headache, Right sided temporal headache, Acute bronchospasm Instructions: ED URI, Viral W/ Wheezing (Adult) Prescriptions: No Action Dulera 100-5 mcg/actuation HFA aerosol inhaler 2 puff inhalation BID Qty: 13 3RF pantoprazole 40 MG tablet 40 mg PO DAILY rosuvastatin 40 mg Tablet 40 mg PO QHS melatonin 10 mg Tablet 10 mg PO QHS carvedilol 3.125 mg Tablet 3.125 mg PO BID Qty: 60 0RF temazepam 30 mg capsule 30 mg PO QHS fluconazole 100 mg tablet 100 mg PO QWEEK cyclobenzaprine 5 mg tablet 5 mg PO TID PRN PRN (Reason: muscle spasm) sennosides [Aminata-guy] 8.6 mg tablet 8.6 mg PO BID PRN PRN (Reason: constipation) magnesium 200 mg tablet 200 mg PO DAILY ferrous sulfate [iron] 325 mg (65 mg iron) tablet 325 mg PO QDAY cyanocobalamin (vitamin B-12) [Vitamin B-12] 1,000 mcg tablet 1,000 mcg PO DAILY metformin 500 mg tablet extended release 24 hr 500 mg PO DAILY 30 Days Qty: 30 0RF alprazolam 0.5 mg tablet 0.5 mg PO BID fluoxetine 40 mg capsule 40 mg PO DAILY Linzess 290 mcg capsule 290 mcg PO DAILY trospium 20 mg tablet 20 mg PO BID ergocalciferol (vitamin D2) 1,250 mcg (50,000 unit) capsule 1,250 mcg PO QWEEK albuterol sulfate 90 mcg/actuation HFA aerosol inhaler 1 puff inhalation Q6H PRN (Reason: shortness of breath or wheezing) Qty: 6.7 0RF Primary Care Provider: Corin Mariscal Referrals: Corin Mariscal MD [Primary Care Provider] - 1 Week if not improving Print Language: Mozambican Disposition Disposition: Home, Self Care
[2024-09-30] MEDS: Ketorolac 15 MG/ML Vial IV (20:31)
[2024-09-30 20:59] VITALS: BP 125/71; PULSE 95; RESP 16; TEMP 36.7; O2SAT 95
[2024-09-30 21:00] VITALS: PULSE 95; RESP 15; O2SAT 95
--- NOTE | 2024-09-30 21:38 | CM.ED ---
Social Work SW met with patient, introduced self and role in [facility]. Patient voiced frustration to SW regarding her recent health. Patient states that she has had several health issues over the last several weeks. Patient states she also has custodial medical concerns that have limited her mobility and caused her to gain weight. Patient states that overall it has been difficult for her lately, but feels she will be able to start feeling better soon. Emotional support provided, no further needs identified at this time. Candi Norris, [employer], FORESTRY AIDE
--- NOTE | 2024-09-30 21:45 | ED.RN ---
This nurse to room to discharge patient. Patient voices frustration that she came in for a severe headache is leaving with a severe headache. Asked patient if she informed Dr Salter that her headache was still present when he reviewed results with her and told her he was discharging her home, she states no. This nurse to Dr Salter to inform of pain still present, Dr Salter states that she was given toradol for her headache, and that pt was asking for narcotics and narcotics are not indicated for headaches; also that patient has history of polysubstance abuse. Informed pt of same, pt verbalized understanding. Assisted to waiting room via wheelchair to wait for ride.
--- NOTE | 2024-09-30 21:50 | ED.RN ---
Pt requesting to be wheeled out of the department d/t family member being on the ramp to pick her up. While this nurse was pushing pt out in wheelchair, pt stating numerous times Fuck this hospital and that doctor. Pt stating numerous times that she was going to chris this hospital and that doctor for terrible care. Pt was able to get herself in the car with no issues and charge nurse updated.
[2024-09-30 23:13] LABS: Reflex Lactate? Y
[2024-10-01 09:45] LABS: Ferritin 27 ng/mL (22-378); Iron 42 ug/dL (50-170); Iron Binding Capacity,Total 436 ug/dL (250-450); Iron Binding Capacity,Unsat 394 ug/dL (228-428)
== END 2024-09-30 21:24 | disposition home or self-care (01) ==
PROVIDERS: Emergency Provider Emergency Medicine; PCP Family Medicine; Visit Provider Emergency Medicine
DX: R51.9 Headache, unspecified (principal); J44.9 Chronic obstructive pulmonary disease, unspecified; E11.22 Type 2 diabetes mellitus with diabetic chronic kidney disease; J06.9 Acute upper respiratory infection, unspecified; E78.5 Hyperlipidemia, unspecified; N18.1 Chronic kidney disease, stage 1; I12.9 Hypertensive chronic kidney disease with stage 1 through stage 4 chronic kidney disease, or unspecified chronic kidney disease; Z90.710 Acquired absence of both cervix and uterus; Z87.891 Personal history of nicotine dependence; F41.9 Anxiety disorder, unspecified; J98.01 Acute bronchospasm; R05.9 Cough, unspecified; R06.02 Shortness of breath; Z99.81 Dependence on supplemental oxygen; G47.33 Obstructive sleep apnea (adult) (pediatric); K21.9 Gastro-esophageal reflux disease without esophagitis; Z79.899 Other long term (current) drug therapy; Z79.51 Long term (current) use of inhaled steroids; Z79.84 Long term (current) use of oral hypoglycemic drugs; F32.A Depression, unspecified; Z90.49 Acquired absence of other specified parts of digestive tract; Z98.51 Tubal ligation status
CPT/HCPCS: 71046; 80053; 82728; 83540; 83550; 83605; 85025; 85652; 94640; 96374; 99285; A4216

== ENCOUNTER 2024-10-14 11:42 | Outpatient (CLI) | payer MEDICARE, MEDICAID, SELFPAY ==
[2024-10-14 11:58] VITALS: BP 122/80; PULSE 89; RESP 18; TEMP 36.1; O2SAT 99; BMI 38.0
[2024-10-14] MEDS: 0.9% NaCl Peripheral Flush Adult IV (12:31)
[2024-10-14] MEDS: Iron Sucrose Complex (Venofer) 300 MG in 0.9% NaCl 250 ML 176.7 MG IV (12:31)
[2024-10-14 15:02] VITALS: BP 125/78; PULSE 80; RESP 16; TEMP 36.1; O2SAT 99
== END 2024-10-14 23:59 | disposition home or self-care (01) ==
LOC: MEDOUTP 11:45
PROVIDERS: PCP Family Medicine; Referring Provider Family Medicine; Visit Provider Family Medicine
DX: D64.9 Anemia, unspecified (principal)
CPT/HCPCS: 96365; 96366; J1756; A4216

== ENCOUNTER 2024-10-21 11:44 | Outpatient (CLI) | payer MEDICARE, MEDICAID, SELFPAY ==
[2024-10-21 12:03] VITALS: BP 103/69; PULSE 95; RESP 16; TEMP 35.9; O2SAT 100; BMI 38.0
[2024-10-21] MEDS: Iron Sucrose Complex (Venofer) 300 MG in 0.9% NaCl 250 ML 176.7 MG IV (12:16)
[2024-10-21] MEDS: 0.9% NaCl Peripheral Flush Adult IV (12:16)
[2024-10-21 14:16] VITALS: BP 119/77; PULSE 86; RESP 16; TEMP 35.7; O2SAT 100
== END 2024-10-21 23:59 | disposition home or self-care (01) ==
LOC: MEDOUTP 11:44
PROVIDERS: PCP Family Medicine; Referring Provider Family Medicine; Visit Provider Family Medicine
DX: D64.9 Anemia, unspecified (principal)
CPT/HCPCS: 96365; 96366; J1756; A4216

== ENCOUNTER 2024-11-07 10:18 | Inpatient (IN) | payer MEDICARE, MEDICAID, SELFPAY ==
[2024-11-07] VITALS (7 sets, daily range): BP systolic 105–127; BP diastolic 69–93; PULSE 90–95; RESP 17–24; TEMP 36.5–36.7; O2SAT 95–100; BMI 38.2; BMI 46.9
--- NOTE | 2024-11-07 10:30 | EKG12_ITS ---
Test Reason : Blood Pressure : */* mmHG Vent. Rate : 91 BPM Atrial Rate : 91 BPM P-R Int : 152 ms QRS Dur : 154 ms QT Int : 436 ms P-R-T Axes : 60 81 -24 degrees QTcB Int : 536 ms Normal sinus rhythm Right bundle branch block Cannot rule out Inferior infarct , age undetermined Abnormal ECG Confirmed by BENEDICT CLINTON, KAMRYN ([id number]), school photograph editor JOSIAH FLOOD ([id number]) on 11/10/2024 6:53:34 AM Referred By: Confirmed By: KAMRYN MCMULLEN MD
--- NOTE | 2024-11-07 10:31 | CT_ITS ---
EXAM: CT Cervical Spine Without Intravenous Contrast CLINICAL INDICATION: FALLS TECHNIQUE: Axial computed tomography images of the cervical spine without intravenous contrast. This CT exam was performed using one or more of the following dose reduction techniques: automated exposure control, adjustment of the mA and/or kV according to patient size, and/or use of iterative reconstruction technique. COMPARISON: No relevant prior studies available. FINDINGS: VERTEBRAE: Degenerative facet arthropathy throughout the cervical spine. No acute fracture. DISCS/SPINAL CANAL/NEURAL FORAMINA: Degenerative disc disease lower cervical spine. SOFT TISSUES: Unremarkable. CT/Spine Cervical without Contras IMPRESSION: 1. No acute fracture. 2. Degenerative changes cervical spine as described. Reading Location: [id number]
--- NOTE | 2024-11-07 10:31 | CT_ITS ---
EXAM: CT Abdomen and Pelvis Without Intravenous Contrast CLINICAL INDICATION: MULTIPLE FALLS, LOW BACK PAIN TECHNIQUE: Axial computed tomography images of the abdomen and pelvis without intravenous contrast. This CT exam was performed using one or more of the following dose reduction techniques: automated exposure control, adjustment of the mA and/or kV according to patient size, and/or use of iterative reconstruction technique. COMPARISON: CT Abdomen Pelvis dated 07/12/2023 FINDINGS: ARTIFACTS: Attenuation artifacts. LUNG BASES: Bibasilar atelectasis. Partially visualized lung mphysema/COPD. ABDOMEN: LIVER: Hepatomegaly with fatty infiltration. GALLBLADDER AND BILE DUCTS: Cholecystectomy. No ductal dilation. PANCREAS: Unremarkable. No ductal dilation. SPLEEN: Unremarkable. No splenomegaly. ADRENALS: Unremarkable. No mass. KIDNEYS AND URETERS: Unremarkable. No obstructing stones. No hydronephrosis. STOMACH AND BOWEL: Fecal retention in the colon consistent with constipation. Colonic diverticulosis without acute diverticulitis. No obstruction. PELVIS: APPENDIX: No findings to suggest acute appendicitis. BLADDER: Unremarkable. No stones. REPRODUCTIVE: Unremarkable as visualized. ABDOMEN and PELVIS: INTRAPERITONEAL SPACE: Unremarkable. No free air. No significant fluid collection. BONES/JOINTS: Bilateral hip replacement. Evaluation of the pelvic structures is limited secondary to beam hardening artifacts from the hip replacement. Status post posterior fusion of T11 to L4. No acute fracture. No dislocation. SOFT TISSUES: Unremarkable. VASCULATURE: Unremarkable. No abdominal aortic aneurysm. LYMPH NODES: Unremarkable. No enlarged lymph nodes. CT/Abdomen/Pelvis without Cont IMPRESSION: 1. Hepatomegaly with fatty infiltration. 2. Fecal retention in the colon consistent with constipation. 3. Colonic diverticulosis without acute diverticulitis. Reading Location: [id number]
--- NOTE | 2024-11-07 10:31 | CT_ITS ---
PROCEDURE: BRAIN/HEAD WITHOUT CONTRAST 11/07/2024 REASON FOR EXAM: MULTIPLE FALLS TECHNIQUE: Head CT without intravenous contrast. Coronal and Sagittal reconstruction series were provided. One or more dose reduction techniques were used (e.g., Automated exposure control, adjustment of the mA and/or kV according to patient size, use of iterative reconstruction technique. RADIATION DOSE SUMMARY: DLP: 3149.27 mGycm COMPARISON: Brain MRI of 08/11/[address] of 07/13/2024. FINDINGS: Brain: Normal. No orbital pathology is noted. CSF Spaces: Normal Sinuses/Mastoids: Clear at visualized levels Bones: No fracture is seen CT/Brain/Head without Contrast IMPRESSION: 1. No fracture seen. 2. No intracranial hemorrhage or other acute process is noted Reading Location: [id number]
--- NOTE | 2024-11-07 10:33 | EX.ED.DYSGE1 ---
HPI History of Present Illness Chief Complaint: Fall Narrative Narrative: Patient is a 63-year-old female with a past medical history of COPD chronically on 3 L, hypertension, hyperlipidemia, thrombocytopenia, alcohol abuse and substance abuse despite denying this when questioned in the room who presents to the emergency department with chief complaint of multiple falls. Patient states that over the last few days she has had at least 4 falls and she states that she did hit her head at 1 time. She states that she is complaining of lower back/buttock pain. Patient states that she has not been eating or drinking much. States on Sunday of last week she had teeth removed and has been on clindamycin and has been taking this as prescribed not missing doses. Patient denies any blood thinning medications. Patient states that she does live alone and has family in the area. [facility] Medical History Diabetes Chronic pain CPAP (continuous positive airway pressure) dependence Contusion of left hip Contusion of rib on right side Contusion of left shoulder Contusion of scalp Closed fracture of fibula, proximal, left Pyuria Substance abuse Kidney disease Former smoker BiPAP (biphasic positive airway pressure) dependence Sleep apnea On home oxygen therapy Hypertension Dementia Alcohol withdrawal Alcohol abuse Admitted to alcohol detoxification center Medical marijuana use Frequent falls DVT (deep venous thrombosis) Right ventricular systolic dysfunction Right bundle branch block (RBBB) Essential (primary) hypertension Sepsis Abdominal pain Migraine Chronic renal insufficiency, stage I Pancytopenia Respiratory tract infection due to COVID-19 virus Endocarditis Gastritis Restrictive lung disease Colitis Osteoarthritis Chronic renal failure Depression GENNARO (obstructive sleep apnea) Pneumonia Bronchitis Asthma COPD (chronic obstructive pulmonary disease) Morbid obesity HLD (hyperlipidemia) Bronchiectasis Idiopathic right ventricular dilation Thrombocytopenia Leukopenia Abnormal liver CT Anemia Anxiety Respiratory insufficiency Respiratory failure with hypoxia Colitis with rectal bleeding History of umbilical hernia History of diarrhea Arthritis Gastroesophageal reflux disease Home Medications ?Medication ?Instructions ?Recorded ?Last Taken ?Type pantoprazole 40 mg tablet,delayed 40 mg PO DAILY ACID REFLUX 12/09/18 07/12/24 History release rosuvastatin 40 mg tablet 40 mg PO QHS CHOLESTEROL 07/19/21 07/12/24 History melatonin 10 mg tablet 10 mg PO QHS SLEEP 07/16/22 07/12/24 History carvedilol 3.125 mg tablet 3.125 mg PO BID HEART #60 tabs 07/20/22 07/12/24 Rx mometasone-formoterol HFA 100 2 puff inhalation BID SHORTNESS OF 03/05/23 07/12/24 Rx mcg-5 mcg/actuation aerosol BREATH/WHEEZING #13 grams inhaler (Dulera) temazepam 30 mg capsule 30 mg PO QHS INSOMNIA 07/12/23 07/12/24 History alprazolam 0.5 mg tablet 0.5 mg PO BID anxiety 01/28/24 07/12/24 History fluoxetine 40 mg capsule 40 mg PO DAILY depression 01/28/24 07/12/24 History linaclotide 290 mcg capsule 290 mcg PO DAILY bowel function 01/28/24 07/12/24 History (Linzess) trospium 20 mg tablet 20 mg PO BID see 01/28/24 07/12/24 History ergocalciferol (vitamin D2) 1,250 1,250 mcg PO QWEEK 07/15/24 Unknown History mcg (50,000 unit) capsule albuterol sulfate 90 mcg/actuation 1 puff inhalation Q6H PRN 07/17/24 Unknown Rx aerosol inhaler shortness of breath or wheezing #6.7 grams cyanocobalamin (vitamin B-12) 1,000 mcg PO DAILY 08/09/24 Unknown History 1,000 mcg tablet (Vitamin B-12) cyclobenzaprine 5 mg tablet 5 mg PO TID PRN PRN muscle spasm 08/09/24 Unknown History ferrous sulfate 325 mg (65 mg 325 mg PO QDAY 08/09/24 Unknown History iron) tablet (iron) fluconazole 100 mg tablet 100 mg PO QWEEK 08/09/24 Unknown History magnesium 200 mg tablet 200 mg PO DAILY 08/09/24 Unknown History sennosides 8.6 mg tablet (Aminata-guy) 8.6 mg PO BID PRN PRN constipation 08/09/24 Unknown History metformin 500 mg tablet,extended 500 mg PO BID 10/14/24 Unknown History release 24 hr tirzepatide 7.5 mg/0.5 mL 7.5 mg subcut QWEEK 11/07/24 Unknown History subcutaneous pen injector (Mounryanro) Allergy/AdvReac Type Severity Reaction Status Date / Time house dust Allergy ITCHY EYES Verified 11/07/24 10:21 Penicillins Allergy Hives Verified 11/07/24 10:21 Seasonal Allergies: Uncoded Allergy ITCHY EYES Verified 11/07/24 10:21 Family History Father Colon cancer Mother Cancer pancreatic Surgical History History of tubal ligation History of appendectomy History of hysterectomy History of cholecystectomy Social History household members: none Smoking Status: Former smoker Tobacco: How many years used: 25 how long ago did patient quit smokin, 0.5ppd second hand exposure: Yes alcohol intake: former substance use type: does not use ROS ROS ED ROS Narrative Constitutional: Denies headache, fevers, chills Eyes: Denies change in vision double vision blurry vision Cardiovascular: Denies chest pain Respiratory: Shortness of breath Abdomen: Denies abdominal pain nausea vomit diarrhea : Denies urinary symptoms Neurological: Complains of weakness with multiple falls denies any numbness or tingling Musculoskeletal: Complains of low buttock pain as noted above Skin: Denies any rashes or lesions EXAM Physical Exam Narrative Exam Narrative: General: Patient lying in bed rest comfortably do not appear to be in acute distress Head: Atraumatic, normocephalic Eyes: PERRL bilaterally, EOMI bilateral, no conjunctival injection noted Neck: Soft, supple, trachea midline Cardiovascular: Regular rate and rhythm no murmurs gallops rubs noted Respiratory: Clear to auscultation bilaterally Abdomen: Soft, nondistended, nontender to palpation Musculoskeletal: All joints taken through full range of motion and all bony prominence palpated no pain elicited Extremities: +4/5 strength noted in the bilateral upper and lower extremities, radial pulses +2/4 in the bilateral extremities Neurological: Patient follow commands knew that she was at [facility] the year is 2024. NIH is 0 GCS 15 Skin: Warm, dry, patient has superficial abrasion over the right knee no evidence of infection at this point time Const Vital Signs: 11/07/24 10:18 11/07/24 10:41 11/07/24 12:18 Temperature 98.1 F 98.1 F Temperature Source Oral Oral Pulse Rate 93 91 Respiratory Rate 24 H 22 H Blood Pressure 105/73 106/69 Blood Pressure Mean 83 81 Pulse Ox 97 98 Oxygen Delivery Method Nasal Cannula Nasal Cannula Nasal Cannula Oxygen Flow Rate (L/min) 3 3 3 11/07/24 12:52 11/07/24 14:37 11/07/24 15:36 Temperature 97.9 F 98.1 F 98.1 F Temperature Source Oral Oral Oral Pulse Rate 90 91 91 Respiratory Rate 18 18 19 H Blood Pressure 105/72 119/93 H 127/75 H Blood Pressure Mean 83 101 92 Pulse Ox 95 95 98 Oxygen Delivery Method Nasal Cannula Nasal Cannula Nasal Cannula Oxygen Flow Rate (L/min) 3 3 3 MDM MDM MDM Narrative Medical decision making narrative: Patient is a 63-year-old female who presents to the emergency department chief complaint of multiple falls. On the differential diagnosis includes but not limited to intracranial hemorrhage, electrolyte abnormality, substance abuse, alcohol abuse, dehydration, UTI, pneumonia. Once workup is obtained and reviewed she will be reevaluated. Patient be given 30 cc/kg bolus of IV fluids which were ordered at 10:35 AM. This is based on ideal body weight as she has a BMI of greater than 30. Patient is a CBC reviewed showed no evidence leukocytosis white blood count normal at 9, hemoglobin 10.8, platelet count was 192. Patient's INR was 0.9, PT of 12.5. Patient's sodium was 138, potassium low indicating hypokalemia at 2.6 she was given oral supplementation and IV replacement as well, creatinine was elevated 3.19. Patient's magnesium level was 1.6 normal, AST and ALT were 30 and 23. Patient's troponin was 41 with a delta troponin of 34. Patient's EKG reviewed and showed sinus rhythm with a rate of 91 bpm. Patient urinalysis reviewed showed no evidence of infection. Patient CT head and brain without contrast showed no fracture seen no intracranial hemorrhage or other acute processes noted. Patient CT cervical spine reviewed showed no acute fracture degenerative changes cervical spine. Patient's CT abdomen pelvis reviewed showed hepatomegaly with fatty infiltration fecal retention in the colon consistent constipation colonic diverticulosis without acute diverticulitis. Patient chest x-ray reviewed by myself by radiology which showed no acute cardiopulmonary processes. Stable right hemidiaphragm elevation. Postsurgical changes of the thoracic lumbar spine again partially visualized without apparent interval change. Will discuss case with hospitalist for admission for her PEDRO, hypokalemia, generalized weakness with multiple falls. Discussed case with hospitalist for admission Dr. Winkler who accept patient for admission. Patient was notified is agreeable spinal cord concerns answered Lab Data Labs: Laboratory Results - last 24 hr 11/07/24 11/07/24 11/07/24 11:00 11:20 12:21 WBC 9.0 RBC 3.86 L Hgb 10.8 L Hct 33.7 L MCV 87.3 MCH 28.0 MCHC 32.0 RDW Std Deviation 53.4 H RDW Coeff of Jaun 16.9 H Plt Count 192 MPV 9.5 Immature Gran % (Auto) 1.600 H Neut % (Auto) 84.0 H Lymph % (Auto) 9.7 L [place] % (Auto) 4.1 Eos % (Auto) 0.4 Baso % (Auto) 0.2 Absolute Neuts (auto) 7.6 Absolute Lymphs (auto) 0.87 Nucleated RBC % 0 PT 12.5 INR 0.9 APTT 24.6 Sodium 138 Potassium 2.6 L* Chloride 101 Carbon Dioxide 21.2 Anion Gap 17 H BUN 39 H Creatinine 3.19 H Estim Creat Clear Calc 24.26 L Est GFR (MDRD) Non-Af 16 L BUN/Creatinine Ratio 12.1 Glucose 94 Lactic Acid 1.1 Calcium 9.5 Magnesium Total Bilirubin 0.60 AST 38 H ALT 23 Alkaline Phosphatase 120 H Total Creatine Kinase 54 Troponin T High Sens 41 H Troponin T Hi Sens 2 Hr Troponin T Hi Sens 4Hr Total Protein 6.7 Albumin 3.9 Globulin 2.9 Albumin/Globulin Ratio 1.4 Urine Color Yellow Urine Clarity Clear Urine pH 6.0 Ur Specific [place] 1.010 Urine Protein 100 H Urine Glucose (UA) Normal Urine Ketones Negative Urine Occult Blood 25 H Urine Nitrite Negative Urine Bilirubin Negative Urine Urobilinogen Normal Ur Leukocyte Esterase Negative Urine RBC 0-5 SEEN Urine WBC 0-5 SEEN Ur Squamous Epith Cells 5-10 SEEN Urine Bacteria RARE Urine Mucus 0 SEEN Urine Opiates Screen PRESUMPTIVE POSITIVE U Buprenorphine Qual NEGATIVE Ur Oxycodone Screen NEGATIVE Urine Methadone Screen NEGATIVE Urine Fentanyl Screen NEGATIVE Ur Barbiturates Screen NEGATIVE Ur Phencyclidine Scrn NEGATIVE Ur Amphetamines Screen NEGATIVE U Benzodiazepines Scrn PRESUMPTIVE POSITIVE Urine Cocaine Screen NEGATIVE U Cannabinoids Screen NEGATIVE Ethyl Alcohol < 10.1 11/07/24 11/07/24 13:00 15:40 WBC RBC Hgb Hct MCV MCH MCHC RDW Std Deviation RDW Coeff of Jaun Plt Count MPV Immature Gran % (Auto) Neut % (Auto) Lymph % (Auto) [place] % (Auto) Eos % (Auto) Baso % (Auto) Absolute Neuts (auto) Absolute Lymphs (auto) Nucleated RBC % PT INR APTT Sodium Potassium Chloride Carbon Dioxide Anion Gap BUN Creatinine Estim Creat Clear Calc Est GFR (MDRD) Non-Af BUN/Creatinine Ratio Glucose Lactic Acid Calcium Magnesium 1.6 Total Bilirubin AST ALT Alkaline Phosphatase Total Creatine Kinase Troponin T High Sens Troponin T Hi Sens 2 Hr 34 H Troponin T Hi Sens 4Hr 33 H Total Protein Albumin Globulin Albumin/Globulin Ratio Urine Color Urine Clarity Urine pH Ur Specific [place] Urine Protein Urine Glucose (UA) Urine Ketones Urine Occult Blood Urine Nitrite Urine Bilirubin Urine Urobilinogen Ur Leukocyte Esterase Urine RBC Urine WBC Ur Squamous Epith Cells Urine Bacteria Urine Mucus Urine Opiates Screen U Buprenorphine Qual Ur Oxycodone Screen Urine Methadone Screen Urine Fentanyl Screen Ur Barbiturates Screen Ur Phencyclidine Scrn Ur Amphetamines Screen U Benzodiazepines Scrn Urine Cocaine Screen U Cannabinoids Screen Ethyl Alcohol Radiography Diagnostic Testing: Clinical Impression(s) from Imaging Studies Abdomen/Pelvis CT 11/07/24 10:31 IMPRESSION: 1. Hepatomegaly with fatty infiltration. 2. Fecal retention in the colon consistent with constipation. 3. Colonic diverticulosis without acute diverticulitis. Reading Location: [facility] Brain CT 11/07/24 10:31 IMPRESSION: 1. No fracture seen. 2. No intracranial hemorrhage or other acute process is noted Reading Location: [address] Cervical Spine CT 11/07/24 10:31 IMPRESSION: 1. No acute fracture. 2. Degenerative changes cervical spine as described. Reading Location: [facility] Chest X-Ray 11/07/24 13:30 IMPRESSION: Postsurgical changes of the thoracolumbar spine again partially visualized, without apparent interval change. Stable right hemidiaphragm elevation. The examination is limited by hypoinflation, body habitus, and AP portable technique, as well as relative hypoinflation. Increased left basilar airspace disease is seen, with differential diagnosis including atelectasis, less likely pneumonitis. No evidence of pulmonary edema. No pleural effusion is clearly seen. No pneumothorax is evident. The cardiomediastinal silhouette is stable, without evidence of cardiomegaly. Reading Location: [address] Discharge Plan Triage Chief Complaint: Fall ED Provider: Armen Gonzales Dx/Rx/DC Orders Clinical Impression: Multiple falls, Acute kidney injury, Acute hypokalemia Prescriptions: No Action Dulera 100-5 mcg/actuation HFA aerosol inhaler 2 puff inhalation BID Qty: 13 3RF pantoprazole 40 MG tablet 40 mg PO DAILY rosuvastatin 40 mg Tablet 40 mg PO QHS melatonin 10 mg Tablet 10 mg PO QHS carvedilol 3.125 mg Tablet 3.125 mg PO BID Qty: 60 0RF temazepam 30 mg capsule 30 mg PO QHS fluconazole 100 mg tablet 100 mg PO QWEEK cyclobenzaprine 5 mg tablet 5 mg PO TID PRN PRN (Reason: muscle spasm) sennosides [Aminata-guy] 8.6 mg tablet 8.6 mg PO BID PRN PRN (Reason: constipation) magnesium 200 mg tablet 200 mg PO DAILY ferrous sulfate [iron] 325 mg (65 mg iron) tablet 325 mg PO QDAY cyanocobalamin (vitamin B-12) [Vitamin B-12] 1,000 mcg tablet 1,000 mcg PO DAILY Mounjaro 7.5 mg/0.5 mL pen injector 7.5 mg subcut QWEEK alprazolam 0.5 mg tablet 0.5 mg PO BID fluoxetine 40 mg capsule 40 mg PO DAILY Linzess 290 mcg capsule 290 mcg PO DAILY trospium 20 mg tablet 20 mg PO BID ergocalciferol (vitamin D2) 1,250 mcg (50,000 unit) capsule 1,250 mcg PO QWEEK albuterol sulfate 90 mcg/actuation HFA aerosol inhaler 1 puff inhalation Q6H PRN (Reason: shortness of breath or wheezing) Qty: 6.7 0RF metformin 500 mg tablet extended release 24 hr 500 mg PO BID Primary Care Provider: Corin Mariscal Referrals: Corin Mariscal MD [Primary Care Provider] - Print Language: Malay Disposition Disposition: Acute Care Hospital [facility]
[2024-11-07 11:55] LABS: Absolute Lymphocyte Count 0.87 X10^3/uL (0.83-4.51); Absolute Neutrophil Count 7.6 X10^3/uL (2.0-7.7); Basophil# 0.02 X10^3/uL; Basophil% 0.2 % (0-1); Eosinophil# 0.04 X10^3/uL; Eosinophils% 0.4 % (0-5); Hematocrit 33.7 % (37-47); Hemoglobin 10.8 g/dL (12.0-15.0); Lymphocyte # 0.87 X10^3/ul (0.83-4.51); Lymphocyte % 9.7 % (19-41); Mean Corpuscular Volume 87.3 fL (81-99); Mean Platelet Vol. 9.5 fl (6.2-12.0); Monocyte# 0.37 X10^3/uL; Monocyte% 4.1 % (0-10); NRBC Flagged by Analyzer 0 % (0-5); Neutrophil # 7.57 X10^3/uL (2.7-7.7); Platelet Count 192 K/mm3 (150-450); RBC Distribution Width CV 16.9 % (11.6-14.6); RBC Distribution Width SD 53.4 fl (35.1-43.9); Red Blood Count 3.86 M/mm3 (4.2-5.4)
[2024-11-07] MEDS: Morphine 4 MG/ML Syringe IV (12:01)
[2024-11-07] MEDS: Ondansetron 4 MG/2 ML Vial IV (12:01)
[2024-11-07] MEDS: 0.9% Normal Saline (1000mL) 1,000 ML 999 ML IV ×3 (12:01→13:44)
[2024-11-07 12:04] LABS: International Normalized Ratio 0.9; Prothrombin Time (Protime)PT. 12.5 SECONDS (11.7-14.9)
[2024-11-07 12:05] LABS: Partial Thromboplast Time 24.6 Seconds (24.1-36.2)
[2024-11-07 12:34] LABS: Lactic Acid 1.1 mmol/L (0.0-2.0)
[2024-11-07 12:35] LABS: Alcohol, Blood (Medical)-Serum < 10.1 mg/dL (<=10.0)
--- NOTE | 2024-11-07 12:35 | ED.RN ---
called lab to inquire about CMP and CPK- will run.
[2024-11-07 12:47] LABS: Mucous, Urine 0 SEEN /hpf (<or=2+)
[2024-11-07 12:53] LABS: Color, Urine Yellow (Yellow); Glucose, Dipstick Normal (Normal); Ketone-Dipstick Negative (Negative); Leukocyte Esterase-Dipstick Negative /ul (Negative); Nitrite-Dipstick Negative (Negative); Occult Blood-Urine 25 /ul (Negative); Protein-Dipstick 100 mg/dl (Negative); Urine Bilirubin Dipstick Negative (Negative); Urine Clarity Clear (Clear); Urine Urobilinogen Normal (Normal)
[2024-11-07 13:03] LABS: CPK Total, Creatine Kinase 54 U/L (24-195)
[2024-11-07 13:04] LABS: Squamous Epithelial Cells - UA 5-10 SEEN /hpf (5-10); White Blood Cells 0-5 SEEN /hpf (0-5)
[2024-11-07 13:05] LABS: Bacteria RARE /hpf (None Seen)
[2024-11-07 13:06] LABS: Red Blood Cells-Urine 0-5 SEEN /hpf (0-5)
[2024-11-07 13:06] LABS: ALB/GLOB Ratio 1.4 RATIO (0.9-2.4); AST(SGOT) 38 U/L (<=31); Alanine Aminotransfer ALT/SGPT 23 U/L (<=34); Albumin, Serum 3.9 g/dL (3.4-4.8); Alkaline Phosphatase 120 U/L (35-104); Anion Gap 17 (5-15); BUN 39 mg/dL (4-19); BUN/Creat Ratio 12.1 RATIO (10-20); Calcium,Total 9.5 mg/dL (7.6-11.0); Carbon Dioxide 21.2 mmol/L (21.0-32.0); Chloride 101 mmol/L (98-108); Creatinine, Serum 3.19 mg/dL (0.70-1.20); EST Glomerular Filtration Rate 16 (>60); Estimated Creatinine Clearance 24.26 ml/min (50-250); Globulin 2.9 g/dL (2.2-4.2); Glucose 94 mg/dL (70-99); Potassium 2.6 mmol/L (3.3-5.1); Protein, Total 6.7 g/dL (5.9-8.4); Sodium Level 138 mmol/L (133-145)
--- NOTE | 2024-11-07 13:30 | RAD_ITS ---
PROCEDURE: CHEST PA AND LATERAL 11/07/2024 REASON FOR EXAM: WEAKNESS TECHNIQUE: Frontal and lateral views of the chest. COMPARISON: Chest x-ray of 09/30/2024. RAD/Chest PA and Lateral IMPRESSION: Postsurgical changes of the thoracolumbar spine again partially visualized, wit hout apparent interval change. Stable right hemidiaphragm elevation. The examination is limited by hypoinflation, body habitus, and AP portable tech nique, as well as relative hypoinflation. Increased left basilar airspace disease is seen, with differential diagnosis in cluding atelectasis, less likely pneumonitis. No evidence of pulmonary edema. No pleural effusion is clearly seen. No pneumothorax is evident. The cardiomediastinal silhouette is stable, without evidence of cardiomegaly. Reading Location: [id number]
[2024-11-07] MEDS: Potassium Chloride 10mEq/100mL 10 MEQ/100 ML IV.SOLN. 100 MEQ IV BOLUS ×4 (13:35→16:32)
[2024-11-07 13:40] LABS: Amphetamine Urine NEGATIVE (<1000 ng/mL); Barbiturate Urine NEGATIVE (< 200 ng/mL); Benzodiazepine Urine PRESUMPTIVE POSITIVE (< 200 ng/mL); Buprenorphine Urine NEGATIVE (< 200 ng/mL); Cocaine Urine NEGATIVE (< 300 ng/mL); Fentanyl, Urine NEGATIVE; Methadone Urine NEGATIVE (< 300 ng/mL); Opiates Urine PRESUMPTIVE POSITIVE (< 300 ng/mL); Oxycodone, Urine NEGATIVE (< 100 ng/mL); PCP Urine NEGATIVE (< 25 ng/mL); THC Urine NEGATIVE (< 50 ng/mL)
[2024-11-07] MEDS: Potassium Chloride Oral Tablet 20 MEQ 60 MEQ PO (13:45)
[2024-11-07 13:46] LABS: Troponin T High Sensitivity 41 ng/L (<=14)
[2024-11-07 13:57] LABS: Troponin T High Sens 2 HR 34 ng/L (<=14)
[2024-11-07 14:15] LABS: Magnesium 1.6 mg/dL (1.5-2.2)
--- NOTE | 2024-11-07 16:01 | ED.RN ---
pt spoke with sister Laura on phone and then this RN spoke with sister as well.
[2024-11-07 16:10] LABS: Troponin T High Sens 4 HR 33 ng/L (<=14)
--- NOTE | 2024-11-07 16:19 | PCM.HP.STD ---
HPI - General General Date of Admission: 11/07/24 Date of Service: 11/07/24 Chief Complaint: Falls HPI Narrative ALFIE HOGAN, is a 63 F who presented to the emergency department at [facility] on 11/07/2024 with a chief complaint of falls.d patient has had multiple falls in the last several days. She reports at least 4 days and hit her head 1 time. On presentation she was complaining of some low back and buttock pain. She also reported that she not been eating or drinking much recently. Sunday of last week she had 4 teeth extracted and then ended up with dry socket and one of them so her p.o. intake has been drastically reduced due to mouth pain. She had been on clindamycin and had been taking it without missing any doses. She lives alone but does have family in the area. She does appear to have some polypharmacy if she is on temazepam and Xanax written by her nurse practitioner psychiatrist. She is also on anticholinergic with trospium for urinary incontinence. I suspect that this in conjunction with her PEDRO is causing her falls as noted above. I did discuss the need to reduce doses with her and consideration of either discontinuing her temazepam or Ativan and she became very tearful. 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 She did demonstrate frustration about it however. Vital signs on presentation showed a temperature of 98.1, pulse was 93, respiratory was 24, blood pressure was 105/73 and pulse ox was 97% on her baseline 3 L nasal cannula. CBC shows a chronic stable anemia but was otherwise unremarkable. Coags are normal. Chemistry panel shows marked hypokalemia with potassium of 2.6, anion gap of 17 with a normal serum bicarb however it is much lower than her baseline currently at 21.2. BUN is 39 with a serum creatinine of 3.19. It appears her baseline serum creatinine runs between 0.8 and 1.2. Lactic acid was normal at 1.1. Magnesium was normal at 1.6. Cardiac enzymes are slightly elevated with her initial troponin being 41 and subsequent 2 and 4-hour troponins being 34 and 33 respectively. UA is consistent with some dehydration but not consistent with infection. Toxicology screen was positive for opiates. She has been on Vicodin at home for her mouth. Also positive for benzodiazepines which she takes chronically. F alcohol level is less than 10. CT abdomen pelvis is negative for any acute findings other than constipation. She also does appear to have hepatomegaly with fatty infiltration. CT of the brain is unremarkable for any acute findings. CT of the cervical spine is negative for any acute findings. Chest x-ray is unremarkable. EKG was unremarkable for any ST-T wave changes concerning for acute ischemia. She does have a chronic right bundle branch block. Given her PEDRO and frequent falls, she will be admitted to the hospital and placed on aggressive hydration with workup for her PEDRO as well as electrolyte replacement. [facility] Medical History Normocytic anemia Diabetes Chronic pain CPAP (continuous positive airway pressure) dependence Contusion of left hip Contusion of rib on right side Contusion of left shoulder Contusion of scalp Closed fracture of fibula, proximal, left Pyuria Substance abuse Kidney disease Former smoker BiPAP (biphasic positive airway pressure) dependence Sleep apnea On home oxygen therapy Hypertension Dementia Alcohol withdrawal Alcohol abuse Admitted to alcohol detoxification center Medical marijuana use Frequent falls DVT (deep venous thrombosis) Right ventricular systolic dysfunction Right bundle branch block (RBBB) Essential (primary) hypertension Sepsis Abdominal pain Migraine Chronic renal insufficiency, stage I Pancytopenia Respiratory tract infection due to COVID-19 virus Endocarditis Gastritis Restrictive lung disease Colitis Osteoarthritis Chronic renal failure Depression GENNARO (obstructive sleep apnea) Pneumonia Bronchitis Asthma COPD (chronic obstructive pulmonary disease) Morbid obesity HLD (hyperlipidemia) Bronchiectasis Idiopathic right ventricular dilation Thrombocytopenia Leukopenia Abnormal liver CT Anemia Anxiety Respiratory insufficiency Respiratory failure with hypoxia Colitis with rectal bleeding History of umbilical hernia History of diarrhea Arthritis Gastroesophageal reflux disease Home Medications ?Medication ?Instructions ?Recorded ?Last Taken ?Type pantoprazole 40 mg tablet,delayed 40 mg PO DAILY ACID REFLUX 12/09/18 07/12/24 History release rosuvastatin 40 mg tablet 40 mg PO QHS CHOLESTEROL 07/19/21 07/12/24 History melatonin 10 mg tablet 10 mg PO QHS SLEEP 07/16/22 07/12/24 History carvedilol 3.125 mg tablet 3.125 mg PO BID HEART #60 tabs 07/20/22 07/12/24 Rx mometasone-formoterol HFA 100 2 puff inhalation BID SHORTNESS OF 03/05/23 07/12/24 Rx mcg-5 mcg/actuation aerosol BREATH/WHEEZING #13 grams inhaler (Dulera) temazepam 30 mg capsule 30 mg PO QHS INSOMNIA 07/12/23 07/12/24 History alprazolam 0.5 mg tablet 0.5 mg PO BID anxiety 01/28/24 07/12/24 History fluoxetine 40 mg capsule 40 mg PO DAILY depression 01/28/24 07/12/24 History linaclotide 290 mcg capsule 290 mcg PO DAILY bowel function 01/28/24 07/12/24 History (Linzess) trospium 20 mg tablet 20 mg PO BID see 01/28/24 07/12/24 History ergocalciferol (vitamin D2) 1,250 1,250 mcg PO QWEEK 07/15/24 Unknown History mcg (50,000 unit) capsule albuterol sulfate 90 mcg/actuation 1 puff inhalation Q6H PRN 07/17/24 Unknown Rx aerosol inhaler shortness of breath or wheezing #6.7 grams cyanocobalamin (vitamin B-12) 1,000 mcg PO DAILY 08/09/24 Unknown History 1,000 mcg tablet (Vitamin B-12) cyclobenzaprine 5 mg tablet 5 mg PO TID PRN PRN muscle spasm 08/09/24 Unknown History ferrous sulfate 325 mg (65 mg 325 mg PO QDAY 08/09/24 Unknown History iron) tablet (iron) fluconazole 100 mg tablet 100 mg PO QWEEK 08/09/24 Unknown History magnesium 200 mg tablet 200 mg PO DAILY 08/09/24 Unknown History sennosides 8.6 mg tablet (Aminata-guy) 8.6 mg PO BID PRN PRN constipation 08/09/24 Unknown History metformin 500 mg tablet,extended 500 mg PO BID 10/14/24 Unknown History release 24 hr tirzepatide 7.5 mg/0.5 mL 7.5 mg subcut QWEEK 11/07/24 Unknown History subcutaneous pen injector (Mounjaro) Allergy/AdvReac Type Severity Reaction Status Date / Time house dust Allergy ITCHY EYES Verified 11/07/24 10:21 Penicillins Allergy Hives Verified 11/07/24 10:21 Seasonal Allergies: Uncoded Allergy ITCHY EYES Verified 11/07/24 10:21 Family History Father Colon cancer Mother Cancer pancreatic Surgical History History of tubal ligation History of appendectomy History of hysterectomy History of cholecystectomy Social History household members: none Smoking Status: Former smoker Tobacco: How many years used: 25 how long ago did patient quit smokin, 0.5ppd second hand exposure: Yes alcohol intake: former substance use type: does not use ROS Constitutional Constitutional: Reports weakness and other Details: Frequent falls ; Denies anorexia, change in weight, chills, fatigue, fever(s), malaise or night sweats Eyes Eyes: Denies blurry vision, change in eye color, change in vision, discharge from eye(s), double vision, erythema, eye pain, loss of vision or other ENT HEENT: Reports other Details: Mouth pain due to recent tooth extractions-markedly improved ; Denies abnormal hearing, dysphagia, ear pain, epistaxis, headache(s), hearing loss, nasal congestion, nasal discharge, post nasal drip, sinus pressure or sore throat Cardiovascular Cardiovascular: Denies chest pain, claudication, dyspnea on exertion, edema, lightheadedness, orthopnea, palpitations, paroxysmal nocturnal dyspnea, rapid heart rate, syncope or other Respiratory/Chest Respiratory/Chest: Denies cough, dyspnea, excessive phlegm production, hemoptysis, productive cough, shortness of breath at rest, shortness of breath with exertion, wheezing or other Gastrointestinal Gastrointestinal: Denies abdominal pain, coffee ground emesis, constipation, diarrhea, dyspepsia, hematemesis, hematochezia, loose stools, melena, nausea, vomiting or other Genitourinary Genitourinary: Denies burning urination, difficulty urinating, dysuria, hematuria, nocturia, urinary frequency, urinary hesitancy, urinary incontinence, urinary urgency or other Musculoskeletal Musculoskeletal: Reports back pain and other Details: Buttock pain ; Denies arthralgias, joint pain, joint stiffness, joint swelling, myalgias or neck pain Neurologic Neurologic: Denies abnormal gait, abnormal speech, confusion, disequilibrium, dizziness, focal weakness, headache(s), numbness, paresthesias, seizure-like activity, seizures, syncope, tingling, tremor(s) or other Psychiatric Psychiatric: Reports anxiety and depression; Denies homicidal ideation, suicidal ideation or other Endocrine Endocrinology: Denies change in body appearance, cold intolerance, excessive sweating, heat intolerance, polydipsia, polyuria or other Hematologic/Lymphatic Hematologic/Lymphatic: Denies anemia, easy bleeding, easy bruising, lymphadenopathy or other Allergic/Immunologic Allergic/Immunologic: Denies rhinitis, hives, eczemia, asthma or other Vital Signs Vital Signs Vital Signs: 11/07/24 10:18 11/07/24 10:41 11/07/24 12:18 Temperature 98.1 F 98.1 F Temperature Source Oral Oral Pulse Rate 93 91 Respiratory Rate 24 H 22 H Blood Pressure 105/73 106/69 Blood Pressure Mean 83 81 Pulse Ox 97 98 Oxygen Delivery Method Nasal Cannula Nasal Cannula Nasal Cannula Oxygen Flow Rate (L/min) 3 3 3 11/07/24 12:52 11/07/24 14:37 11/07/24 15:36 Temperature 97.9 F 98.1 F 98.1 F Temperature Source Oral Oral Oral Pulse Rate 90 91 91 Respiratory Rate 18 18 19 H Blood Pressure 105/72 119/93 H 127/75 H Blood Pressure Mean 83 101 92 Pulse Ox 95 95 98 Oxygen Delivery Method Nasal Cannula Nasal Cannula Nasal Cannula Oxygen Flow Rate (L/min) 3 3 3 Weight Weight: 114.3 kg Body Mass Index (BMI) 38.2 Physical Exam Const alert, no apparent distress and well nourished; Negative for average body habitus or healthy appearing Constitutional Narrative: Morbidly obese, upper middle-aged, white female, sitting up in bed, appears older than stated age, tearful at times, oriented to self place and month but got confused initially on year General Appearance: cooperative HEENT normocephalic, head/scalp atraumatic and hearing grossly normal bilaterally HEENT Narrative: Mucous membranes and lips are markedly dry, dentures in place, Mallampati 3, no thrush, pill fragments remain in mouth from potassium supplementation Eyes Eyes Narrative: No scleral icterus Neck supple Neck Narrative: Neck is short and thick, trachea midline Resp normal respiratory effort, no retractions, no use of accessory muscles and clear to auscultation bilaterally Resp Narrative: Diminished diffusely Auscultation: rales; Negative for rhonchi or wheezes Cardio regular rate, regular rhythm, S1 normal heart sound, S2 normal heart sound, no murmurs, no rub, no gallops and no clicks GI normal to inspection, nondistended, normoactive bowel sounds, soft to palpation and non-tender GI Narrative: Protuberant abdomen Extremity no clubbing, cyanosis or edema Extremity Narrative: Pedal pulses are 2+, radial pulses are 2+ Neuro moves all extremities and no focal motor deficits Neuro Narrative: Patient was oriented to time except for month had some confusion with this Sensorium / Orientation: awake, alert, oriented to person and oriented to place Speech: speech normal Psych Psych Narrative: Tearful at times Mood & Affect: anxious Results Lab / Micro Data 11/07/24 11:20 11/07/24 11:00 Labs: Laboratory Results - last 24 hr 11/07/24 11:00: Sodium 138, Potassium 2.6 L*, Chloride 101, Carbon Dioxide 21.2, Anion Gap 17 H, BUN 39 H, Creatinine 3.19 H, Estim Creat Clear Calc 24.26 L, Est GFR (MDRD) Non-Af 16 L, BUN/Creatinine Ratio 12.1, Glucose 94, Calcium 9.5, Total Bilirubin 0.60, AST 38 H, ALT 23, Alkaline Phosphatase 120 H, Total Creatine Kinase 54, Troponin T High Sens 41 H, Total Protein 6.7, Albumin 3.9, Globulin 2.9, Albumin/Globulin Ratio 1.4 11/07/24 11:20: WBC 9.0, RBC 3.86 L, Hgb 10.8 L, Hct 33.7 L, MCV 87.3, MCH 28.0, MCHC 32.0, RDW Std Deviation 53.4 H, RDW Coeff of Jaun 16.9 H, Plt Count 192, MPV 9.5, Immature Gran % (Auto) 1.600 H, Neut % (Auto) 84.0 H, Lymph % (Auto) 9.7 L, [place] % (Auto) 4.1, Eos % (Auto) 0.4, Baso % (Auto) 0.2, Absolute Neuts (auto) 7.6, Absolute Lymphs (auto) 0.87, Nucleated RBC % 0, PT 12.5, INR 0.9, APTT 24.6, Lactic Acid 1.1, Ethyl Alcohol < 10.1 11/07/24 12:21: Urine Color Yellow, Urine Clarity Clear, Urine pH 6.0, Ur Specific [place] 1.010, Urine Protein 100 H, Urine Glucose (UA) Normal, Urine Ketones Negative, Urine Occult Blood 25 H, Urine Nitrite Negative, Urine Bilirubin Negative, Urine Urobilinogen Normal, Ur Leukocyte Esterase Negative, Urine RBC 0-5 SEEN, Urine WBC 0-5 SEEN, Ur Squamous Epith Cells 5-10 SEEN, Urine Bacteria RARE, Urine Mucus 0 SEEN, Urine Opiates Screen PRESUMPTIVE POSITIVE, U Buprenorphine Qual NEGATIVE, Ur Oxycodone Screen NEGATIVE, Urine Methadone Screen NEGATIVE, Urine Fentanyl Screen NEGATIVE, Ur Barbiturates Screen NEGATIVE, Ur Phencyclidine Scrn NEGATIVE, Ur Amphetamines Screen NEGATIVE, U Benzodiazepines Scrn PRESUMPTIVE POSITIVE, Urine Cocaine Screen NEGATIVE, U Cannabinoids Screen NEGATIVE 11/07/24 13:00: Magnesium 1.6, Troponin T Hi Sens 2 Hr 34 H 11/07/24 15:40: Troponin T Hi Sens 4Hr 33 H Imaging Radiology Impression Abdomen/Pelvis CT 11/07/24 10:31 IMPRESSION: 1. Hepatomegaly with fatty infiltration. 2. Fecal retention in the colon consistent with constipation. 3. Colonic diverticulosis without acute diverticulitis. Reading Location: [facility] Brain CT 11/07/24 10:31 IMPRESSION: 1. No fracture seen. 2. No intracranial hemorrhage or other acute process is noted Reading Location: [address] Cervical Spine CT 11/07/24 10:31 IMPRESSION: 1. No acute fracture. 2. Degenerative changes cervical spine as described. Reading Location: [facility] Chest X-Ray 11/07/24 13:30 IMPRESSION: Postsurgical changes of the thoracolumbar spine again partially visualized, without apparent interval change. Stable right hemidiaphragm elevation. The examination is limited by hypoinflation, body habitus, and AP portable technique, as well as relative hypoinflation. Increased left basilar airspace disease is seen, with differential diagnosis including atelectasis, less likely pneumonitis. No evidence of pulmonary edema. No pleural effusion is clearly seen. No pneumothorax is evident. The cardiomediastinal silhouette is stable, without evidence of cardiomegaly. Reading Location: [address] Assessment & Plan Assessment/Plan (1) PEDRO (acute kidney injury): (2) Hypokalemia: (3) Generalized weakness: (4) Debility: (5) Chronic prescription benzodiazepine use: (6) Elevated troponin: PLAN: Plan PEDRO - Seems to be secondary to dehydration with decreased p.o. intake due to oral pain related to dental extraction - Oral intake is improving and pain is decreasing - Check urine sodium and urine creatinine - Will dose reduce temazepam to 15 mg at at bedtime as I do think polypharmacy is contributing to her falls - Continue IV fluids with LR at 150 cc/h for 4 L - Check renal ultrasound - Will hold off on nephrology consultation for now as there are no needs for renal replacement therapy with the hopes that renal function improves quickly with IV fluids Troponin elevation - Suspect related to PEDRO and decreased clearance - Patient without chest pain - EKG is unremarkable for any acute finding consistent with acute ischemia - Will defer further workup at this time Hypokalemia - Magnesium is within normal limits - Patient was given oral and IV potassium in the emergency department - Recheck in a.m. Generalized weakness/debility/falls - Suspect this is multifactorial but does include polypharmacy -Would recommend reevaluation of her benzodiazepine use by her psychiatrist - PT/OT consultation - Case management/social work consultation for assistance with discharge planning Chronic hypoxic respiratory failure secondary to COPD - Patient initially denied having COPD however I reviewed records and previous pulmonary notes that she does indeed have COPD - FEV1 is 69% predicted - Continue home inhalers - I did discuss with the patient the fact that she does have COPD for future health records purposes - As needed albuterol - Recommend outpatient follow-up with pulmonary medicine as previously scheduled GENNARO - Patient noncompliant - Continue home O2 3 L nocturnally and uptitrate to keep sats between 88 and 90% while sleeping DM-2 - Hold home oral agents - Hold home injections - SSI with Accu-Cheks as ordered Essential hypertension/hyperlipidemia - Hold Coreg for now with significant dehydration his blood pressures are somewhat soft - As needed labetalol - Continue home statin GERD - Continue home PPI History of iron deficiency - Continue iron - Hemoglobin is currently stable and normal Depression/anxiety - Continue Xanax - Continue fluoxetine Severe insomnia - Continue dose reduced temazepam due to renal dysfunction - Continue home melatonin IBS/constipation - Restart Linzess at discharge - Continue home bowel regimen Recent dental extraction - As needed Tylenol - Patient completed clindamycin Obesity -BMI is 38.3 -Recommend weight loss -Complicates treatment, prognosis, outcomes DVT prophylaxis - Heparin 3 times daily CODE STATUS - DNR CCA okay for short-term intubation Charges/Coding Visit Charges Inpatient E&M: 55661 Init Hosp L3
[2024-11-07 17:29] LABS: Urine Sodium < 20 mmol/L (Not Establ.)
--- NOTE | 2024-11-07 19:24 | US_ITS ---
PROCEDURE: KIDNEY AND BLADDER 11/07/2024 REASON FOR EXAM: PEDRO TECHNIQUE: Grayscale and color Doppler ultrasound of the kidneys and urinary bladder.. COMPARISON: CT abdomen and pelvis on 11/07/2024 FINDINGS: The right kidney measures 13.5 x 7.3 x 8.3 cm with cortex measuring 1.5 cm in thickness. The left kidney measures 12.5 x 6.5 x 5.7 cm with cortex measuring 1.8 cm in thickness. Renal cortical echogenicity is mildly increased bilaterally. No hydronephrosis on either side. There are partially exophytic avascular anechoic lesions measuring 1.9 cm in the right kidney and 1.5 cm in the left kidney. Ureteral jets are not visualized. No urinary bladder wall thickening. US/Kidney and Bladder IMPRESSION: Findings suggestive of medical renal disease. No hydronephrosis. Reading Location: [id number]
[2024-11-07] MEDS: Lactated Ringers 1,000 ML 150 ML IV (20:27)
[2024-11-07] MEDS: 0.9% Saline Lock 10 ML Syringe IV (20:28)
[2024-11-07] MEDS: Atorvastatin Calcium 80 MG Tablet PO (21:19)
[2024-11-07] MEDS: Acetaminophen 325 MG Tablet 650 MG PO (21:26)
[2024-11-07] MEDS: Ergocalciferol 1.25 MG (50, 000 UNIT) Capsule PO (21:27)
[2024-11-07] MEDS: MELATONIN 10 MG TABLET PO (21:28)
[2024-11-07] MEDS: Heparin Injection (Vial) 5,000 UNIT/ML VIAL 5000 UNIT SC (21:29)
[2024-11-07] MEDS: ALPRAZolam 0.5 MG Tablet PO (21:35)
[2024-11-07 22:07] LABS: Bedside Glucose 79 mg/dL (74-106)
[2024-11-07] MEDS: Temazepam 15 MG Capsule PO (23:50)
[2024-11-08] VITALS (7 sets, daily range): BP systolic 112–131; BP diastolic 71–98; PULSE 84–96; RESP 16–20; TEMP 36.3–36.6; O2SAT 96–100
[2024-11-08] MEDS: Lactated Ringers 1,000 ML 150 ML IV ×3 (03:24→21:11)
[2024-11-08] MEDS: Heparin Injection (Vial) 5,000 UNIT/ML VIAL 5000 UNIT SC ×3 (06:07→21:11)
[2024-11-08] MEDS: Acetaminophen 325 MG Tablet 650 MG PO (06:07)
[2024-11-08] MEDS: Albuterol 2.5 MG/3 ML VIAL.NEB. INHALATION ×3 (07:58→20:52)
[2024-11-08] MEDS: Budesonide Respules 0.5 MG/2 ML AMPUL.NEB. INHALATION ×2 (07:58→20:52)
--- NOTE | 2024-11-08 09:24 | PCM.PN.HOSP ---
Reason for Visit Reason for Visit: Diagnoses Hypokalemia (11/07/24) Acute kidney failure, unspecified (11/07/24) Weakness (11/07/24) Other malaise (11/07/24) Other specified abnormal findings of blood chemistry (11/07/24) Other detention (current) drug therapy (11/07/24) Subjective Subjective Thinks she may have eaten something. Objective Data Objective Data Vital Signs: Vital Signs Temp Pulse Resp BP Pulse Ox O2 Del Method O2 Flow Rate 36.6 C 94 16 124/71 H 98 Nasal Cannula 2 11/08/24 03:22 11/08/24 08:01 11/08/24 08:01 11/08/24 03:22 11/08/24 08:01 11/08/24 08:01 11/08/24 08:01 Oxygen Flow Rate (L/min) 2 Oxygen Delivery Method Nasal Cannula Weight: 135.9 kg Body Mass Index (BMI) 46.9 Intake & Output: Intake and Output for Last 24 Hours 11/06/24 11/07/24 11/08/24 23:59 23:59 23:59 Intake Total 3282.45 / 3282.45 1000 / 1000 Output Total 400 / 400 300 / 300 Balance 2882.45 / 2882.45 700 / 700 Lab / Micro Data 11/07/24 11:20 11/07/24 11:00 Labs: Laboratory Results - last 24 hr 11/07/24 11:00: Sodium 138, Potassium 2.6 L*, Chloride 101, Carbon Dioxide 21.2, Anion Gap 17 H, BUN 39 H, Creatinine 3.19 H, Estim Creat Clear Calc 24.26 L, Est GFR (MDRD) Non-Af 16 L, BUN/Creatinine Ratio 12.1, Glucose 94, Calcium 9.5, Total Bilirubin 0.60, AST 38 H, ALT 23, Alkaline Phosphatase 120 H, Total Creatine Kinase 54, Troponin T High Sens 41 H, Total Protein 6.7, Albumin 3.9, Globulin 2.9, Albumin/Globulin Ratio 1.4 11/07/24 11:20: WBC 9.0, RBC 3.86 L, Hgb 10.8 L, Hct 33.7 L, MCV 87.3, MCH 28.0, MCHC 32.0, RDW Std Deviation 53.4 H, RDW Coeff of Jaun 16.9 H, Plt Count 192, MPV 9.5, Immature Gran % (Auto) 1.600 H, Neut % (Auto) 84.0 H, Lymph % (Auto) 9.7 L, [place] % (Auto) 4.1, Eos % (Auto) 0.4, Baso % (Auto) 0.2, Absolute Neuts (auto) 7.6, Absolute Lymphs (auto) 0.87, Nucleated RBC % 0, PT 12.5, INR 0.9, APTT 24.6, Lactic Acid 1.1, Ethyl Alcohol < 10.1 11/07/24 12:21: Urine Color Yellow, Urine Clarity Clear, Urine pH 6.0, Ur Specific [place] 1.010, Urine Protein 100 H, Urine Glucose (UA) Normal, Urine Ketones Negative, Urine Occult Blood 25 H, Urine Nitrite Negative, Urine Bilirubin Negative, Urine Urobilinogen Normal, Ur Leukocyte Esterase Negative, Urine RBC 0-5 SEEN, Urine WBC 0-5 SEEN, Ur Squamous Epith Cells 5-10 SEEN, Urine Bacteria RARE, Urine Mucus 0 SEEN, Urine Opiates Screen PRESUMPTIVE POSITIVE, U Buprenorphine Qual NEGATIVE, Ur Oxycodone Screen NEGATIVE, Urine Methadone Screen NEGATIVE, Urine Fentanyl Screen NEGATIVE, Ur Barbiturates Screen NEGATIVE, Ur Phencyclidine Scrn NEGATIVE, Ur Amphetamines Screen NEGATIVE, U Benzodiazepines Scrn PRESUMPTIVE POSITIVE, Urine Cocaine Screen NEGATIVE, U Cannabinoids Screen NEGATIVE 11/07/24 13:00: Magnesium 1.6, Troponin T Hi Sens 2 Hr 34 H 11/07/24 15:40: Troponin T Hi Sens 4Hr 33 H 11/07/24 17:00: Ur Random Sodium < 20 11/07/24 21:22: POC Glucose 79 Radiography Diagnostic Testing: Radiology Impression Abdomen/Pelvis CT 11/07/24 10:31 IMPRESSION: 1. Hepatomegaly with fatty infiltration. 2. Fecal retention in the colon consistent with constipation. 3. Colonic diverticulosis without acute diverticulitis. Reading Location: [id number] Brain CT 11/07/24 10:31 IMPRESSION: 1. No fracture seen. 2. No intracranial hemorrhage or other acute process is noted Reading Location: [address] Cervical Spine CT 11/07/24 10:31 IMPRESSION: 1. No acute fracture. 2. Degenerative changes cervical spine as described. Reading Location: [id number] Chest X-Ray 11/07/24 13:30 IMPRESSION: Postsurgical changes of the thoracolumbar spine again partially visualized, without apparent interval change. Stable right hemidiaphragm elevation. The examination is limited by hypoinflation, body habitus, and AP portable technique, as well as relative hypoinflation. Increased left basilar airspace disease is seen, with differential diagnosis including atelectasis, less likely pneumonitis. No evidence of pulmonary edema. No pleural effusion is clearly seen. No pneumothorax is evident. The cardiomediastinal silhouette is stable, without evidence of cardiomegaly. Reading Location: [address] Renal Ultrasound 11/07/24 19:24 IMPRESSION: Findings suggestive of medical renal disease. No hydronephrosis. Reading Location: [facility] Physical Exam Const alert and no apparent distress HEENT head/scalp atraumatic and moist oral mucous membranes Resp normal respiratory effort, no retractions, no use of accessory muscles and clear to auscultation bilaterally Cardio regular rate, regular rhythm, S1 normal heart sound and S2 normal heart sound GI normal to inspection, nondistended, normoactive bowel sounds, soft to palpation, non-tender and non-distended Neuro oriented x3, CN's II-XII intact bilaterally, moves all extremities and no focal motor deficits Sensorium / Orientation: awake and alert Assessment & Plan Assessment/Plan (1) PEDRO (acute kidney injury): PLAN: 2/2 dehydration. Continue IVF. Kidney ultrasound unremarkable. (2) Hypokalemia: PLAN: resplaced (3) Elevated troponin: PLAN: Likely skewed given PEDRO. Trended down. No additional work up at this time. (4) Encephalopathy: PLAN: Likely metabolic and toxic. From PEDRO, plus home medications. Head CT showed no acute process. PLAN: Plan VTE prophylaxis: LMWH. Charges/Coding Visit Charges Inpatient E&M: 31753 Subs Hosp L2
[2024-11-08] MEDS: ALPRAZolam 0.5 MG Tablet PO (11:11)
[2024-11-08] MEDS: Pantoprazole Sodium 40 MG Tablet PO (11:11)
[2024-11-08] MEDS: Tolterodine Tartrate 2 MG CAP.SA PO (11:11)
[2024-11-08] MEDS: Ferrous Sulfate 325 MG Tablet PO (11:11)
[2024-11-08] MEDS: Magnesium Chloride 64 MG Delay Rel.Tablet 128 MG PO (11:11)
[2024-11-08] MEDS: Fluoxetine HCl 40 MG CAPSULE PO (11:12)
[2024-11-08] MEDS: Cyanocobalamin 500 MCG Tablet 1000 MCG PO (11:13)
[2024-11-08 11:27] LABS: Bedside Glucose 95 mg/dL (74-106)
[2024-11-08 11:58] LABS: Bedside Glucose 98 mg/dL (74-106)
--- NOTE | 2024-11-08 14:43 | CASEMGMT ---
Social Work Pt's grandson spoke w/SW, states pt wants to go to SNF senior living, wants to go [facility]. SW met w/pt in room in regard to prior level of function and anticipated discharge plan. Pt struggling w/word finding at times but able to answer most questions. SW did let pt's RN know about pt struggling w/word finding. SW did also call pt's sister and POA Laura PCP: Dr. Corin Mariscal Specialists: Dr. Winkler--nephrology, Dr. Maurer--pulmonology, Dr. Stoll--cardiology. Pt did not mention it but pt's sister mentioned pt sees a psychiatrist also. Insurance: Aet Medicare/Medicaid LNOK: Pt has two sisters, a brother, grandchildren involved. As per pt's sister Laura, pt's children want nothing to do with her. LW/POA: Both on file, pt's sister Laura is healthcare POA Living arrangements: Pt lives home alone, no steps in. Pt says she is fully independent in cooking, cleaning, driving, organizing medications, ADLs. Pt does have difficulty doing laundry. DME: Pt has a walker, cane, wheelchair, safety rails, bedside commode, shower chair, glucometer. Pt has home O2 through [employer]. SNF/HHC: Pt has history of home health care. 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 D[place]AS did provide to pt a list of prison facilities from [facility], complete with quality and resource use data, in pt's insurance network and in pt's preferred geographic area. SW asked pt to review the list on the weekend and choose additional facilities should [facility] not have a bed. Pt states understanding. D[place]AS asked if it would be okay to call her sister/POA Laura to update her, pt in agreement w/this. 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 D[place]AS explained we can make the referral for short term, and see how it goes, see if we can get a precert through her [employer] initially. Laura thought this was a good idea as she is concerned once pt is feeling better she will want to return home. DALLAS explained we will make the referrals and follow up Sunday. DALLAS did also ask Laura if pt struggles with word finding. She states no, but states that pt is taking 3 Xanax per day and a sleeping pill, and as per the pt this is how the psychiatrist prescribed it. She states pt has a history of abusing medications and alcohol use. D[place]AS will make a referral to [facility] later today, will follow up on Sunday. TERI Escobedo
[2024-11-08 15:16] LABS: Anion Gap 12 (5-15); BUN 32 mg/dL (4-19); BUN/Creat Ratio 12.7 RATIO (10-20); Calcium,Total 8.8 mg/dL (7.6-11.0); Carbon Dioxide 21.3 mmol/L (21.0-32.0); Chloride 107 mmol/L (98-108); Creatinine, Serum 2.54 mg/dL (0.70-1.20); EST Glomerular Filtration Rate 21 (>60); Estimated Creatinine Clearance 33.11 ml/min (50-250); Glucose 112 mg/dL (70-99); Potassium 3.5 mmol/L (3.3-5.1); Sodium Level 140 mmol/L (133-145)
--- NOTE | 2024-11-08 15:24 | CASEMGMT ---
Social Work SW made referral to Jacky in [facility]. Pt's grandson followed up w/SW and asked about referring pt to TCU. SW asked Armen to speak w/pt and his aunt, see if they want to change the plan from [facility] to [facility], and let SW on Sunday know. SW did remind him if pt is going longterm, one move may be easier than two however as pt cannot go to TCU longterm. Armen will follow up w/his family and have family or pt let SW know if they want to try for TCU. TERI Escobedo
[2024-11-08 17:51] LABS: Bedside Glucose 115 mg/dL (74-106)
[2024-11-08] MEDS: Atorvastatin Calcium 80 MG Tablet PO (21:11)
[2024-11-08] MEDS: MELATONIN 10 MG TABLET PO (21:11)
[2024-11-08 21:57] LABS: Bedside Glucose 91 mg/dL (74-106)
[2024-11-09] VITALS (10 sets, daily range): BP systolic 111–131; BP diastolic 59–83; PULSE 82–97; RESP 16–18; TEMP 36.5–36.6; O2SAT 95–99
[2024-11-09] MEDS: Acetaminophen 325 MG Tablet 650 MG PO ×3 (00:55→21:02)
[2024-11-09] MEDS: 0.9% Saline Lock 10 ML Syringe IV (00:57)
[2024-11-09] MEDS: Heparin Injection (Vial) 5,000 UNIT/ML VIAL 5000 UNIT SC ×3 (06:38→21:02)
[2024-11-09 07:00] LABS: Bedside Glucose 92 mg/dL (74-106)
[2024-11-09 07:14] LABS: Absolute Lymphocyte Count 0.47 X10^3/uL (0.83-4.51); Absolute Neutrophil Count 3.6 X10^3/uL (2.0-7.7); Basophil# 0.01 X10^3/uL; Basophil% 0.2 % (0-1); Eosinophil# 0.05 X10^3/uL; Eosinophils% 1.1 % (0-5); Hematocrit 27.2 % (37-47); Hemoglobin 8.5 g/dL (12.0-15.0); Lymphocyte # 0.47 X10^3/ul (0.83-4.51); Lymphocyte % 10.4 % (19-41); Mean Corp Hgb Conc 31.3 g/dL (32-36); Mean Corpuscular Volume 89.5 fL (81-99); Mean Platelet Vol. 9.4 fl (6.2-12.0); Monocyte# 0.28 X10^3/uL; Monocyte% 6.2 % (0-10); NRBC Flagged by Analyzer 0 % (0-5); Neutrophil # 3.64 X10^3/uL (2.7-7.7); Neutrophil % 80.8 % (47-70); POSITIVE DIFFERENTIAL YES; Platelet Count 135 K/mm3 (150-450); RBC Distribution Width CV 17.3 % (11.6-14.6); RBC Distribution Width SD 56.2 fl (35.1-43.9); Red Blood Count 3.04 M/mm3 (4.2-5.4); White Blood Count 4.5 K/mm3 (4.4-11.0)
[2024-11-09] MEDS: Albuterol 2.5 MG/3 ML VIAL.NEB. INHALATION ×3 (07:39→21:15)
[2024-11-09] MEDS: Budesonide Respules 0.5 MG/2 ML AMPUL.NEB. INHALATION ×2 (07:39→21:15)
[2024-11-09 07:52] LABS: Magnesium 1.5 mg/dL (1.5-2.2); Phosphorus 4.3 mg/dL (2.7-4.5)
[2024-11-09 07:54] LABS: ALB/GLOB Ratio 1.4 RATIO (0.9-2.4); AST(SGOT) 26 U/L (<=31); Alanine Aminotransfer ALT/SGPT 17 U/L (<=34); Albumin, Serum 3.2 g/dL (3.4-4.8); Alkaline Phosphatase 101 U/L (35-104); Anion Gap 10 (5-15); BUN 29 mg/dL (4-19); BUN/Creat Ratio 12.1 RATIO (10-20); Carbon Dioxide 22.4 mmol/L (21.0-32.0); Chloride 108 mmol/L (98-108); Creatinine, Serum 2.39 mg/dL (0.70-1.20); EST Glomerular Filtration Rate 22 (>60); Estimated Creatinine Clearance 35.18 ml/min (50-250); Globulin 2.3 g/dL (2.2-4.2); Glucose 103 mg/dL (70-99); Potassium 3.7 mmol/L (3.3-5.1); Protein, Total 5.5 g/dL (5.9-8.4); Sodium Level 141 mmol/L (133-145); Total Bilirubin 0.59 mg/dL (0.00-1.30)
[2024-11-09] MEDS: Pantoprazole Sodium 40 MG Tablet PO (08:59)
[2024-11-09] MEDS: Magnesium Chloride 64 MG Delay Rel.Tablet 128 MG PO (08:59)
[2024-11-09] MEDS: Cyanocobalamin 500 MCG Tablet 1000 MCG PO (09:00)
[2024-11-09] MEDS: Tolterodine Tartrate 2 MG CAP.SA PO (09:00)
--- NOTE | 2024-11-09 09:08 | PCM.PN.HOSP ---
Reason for Visit Reason for Visit: Diagnoses Hypokalemia (11/07/24) Encephalopathy, unspecified (11/07/24) Acute kidney failure, unspecified (11/07/24) Weakness (11/07/24) Other malaise (11/07/24) Other specified abnormal findings of blood chemistry (11/07/24) [facility] [place] drug therapy (11/07/24) Subjective Subjective Feeling well. No new events. Objective Data Objective Data Vital Signs: Vital Signs Temp Pulse Resp BP Pulse Ox O2 Del Method O2 Flow Rate 36.5 C L 90 18 111/71 99 Nasal Cannula 2 11/09/24 08:51 11/09/24 08:51 11/09/24 08:51 11/09/24 08:51 11/09/24 08:51 11/09/24 08:51 11/09/24 08:51 Oxygen Flow Rate (L/min) 2 Oxygen Delivery Method Nasal Cannula Weight: 135.9 kg Body Mass Index (BMI) 46.9 Intake & Output: Intake and Output for Last 24 Hours 11/07/24 11/08/24 11/09/24 23:59 23:59 23:59 Intake Total 3282.45 / 3282.45 3600 / 3840 1440 / 1440 Output Total 400 / 400 1000 / 1500 1500 / 1500 Balance 2882.45 / 2882.45 2600 / 2340 -60 / -60 Lab / Micro Data 11/09/24 07:04 11/09/24 07:04 Labs: Laboratory Results - last 24 hr 11/08/24 06:06: POC Glucose 95 11/08/24 11:18: POC Glucose 98 11/08/24 14:43: Sodium 140, Potassium 3.5, Chloride 107, Carbon Dioxide 21.3, Anion Gap 12, BUN 32 H, Creatinine 2.54 H, Estim Creat Clear Calc 33.11 L, Est GFR (MDRD) Non-Af 21 L, BUN/Creatinine Ratio 12.7, Glucose 112 H, Calcium 8.8 11/08/24 16:56: POC Glucose 115 H 11/08/24 21:21: POC Glucose 91 11/09/24 06:38: POC Glucose 92 11/09/24 07:04: WBC 4.5, RBC 3.04 L, Hgb 8.5 L, Hct 27.2 L, MCV 89.5, MCH 28.0, MCHC 31.3 L, RDW Std Deviation 56.2 H, RDW Coeff of Jaun 17.3 H, Plt Count 135 L, MPV 9.4, Immature Gran % (Auto) 1.300 H, Neut % (Auto) 80.8 H, Lymph % (Auto) 10.4 L, Bland % (Auto) 6.2, Eos % (Auto) 1.1, Baso % (Auto) 0.2, Absolute Neuts (auto) 3.6, Absolute Lymphs (auto) 0.47 L, Nucleated RBC % 0, Sodium 141, Potassium 3.7, Chloride 108, Carbon Dioxide 22.4, Anion Gap 10, BUN 29 H, Creatinine 2.39 H, Estim Creat Clear Calc 35.18 L, Est GFR (MDRD) Non-Af 22 L, BUN/Creatinine Ratio 12.1, Glucose 103 H, Calcium 9.0, Phosphorus 4.3, Magnesium 1.5, Total Bilirubin 0.59, AST 26, ALT 17, Alkaline Phosphatase 101, Total Protein 5.5 L, Albumin 3.2 L, Globulin 2.3, Albumin/Globulin Ratio 1.4 Micro: Microbiology 11/07/24 12:21 Urine, Clean Catch Urine Culture - Preliminary GNR lactose carpenter wooden tank erecting 11/07/24 12:21 Urine, Clean Catch Urine Culture - Preliminary GNR lactose carpenter wooden tank erecting Mixed Gram Positive Organisms Physical Exam Const alert and no apparent distress HEENT head/scalp atraumatic and moist oral mucous membranes Resp normal respiratory effort, no retractions, no use of accessory muscles and clear to auscultation bilaterally Cardio regular rate, regular rhythm, S1 normal heart sound and S2 normal heart sound GI normal to inspection, nondistended, normoactive bowel sounds, soft to palpation, non-tender and non-distended Extremity normal to inspection Neuro Sensorium / Orientation: awake Assessment & Plan Assessment/Plan (1) PEDRO (acute kidney injury): PLAN: 2/2 dehydration. Improved with IVF. Kidney ultrasound unremarkable. (2) Hypokalemia: PLAN: resplaced (3) Elevated troponin: PLAN: Likely skewed given PEDRO. Trended down. No additional work up at this time. (4) Encephalopathy: PLAN: Likely metabolic and toxic. From PEDRO, plus home medications. Head CT showed no acute process. (5) Debility: PLAN: Did poorly with therapy walking only 15 feet. Patient will likely require [facility] facility. PLAN: Plan VTE prophylaxis: LMWH. Charges/Coding Visit Charges Inpatient E&M: 94899 Subs Hosp L2
[2024-11-09 12:10] LABS: Bedside Glucose 95 mg/dL (74-106)
[2024-11-09] MEDS: Ferrous Sulfate 325 MG Tablet PO (13:24)
[2024-11-09 16:58] LABS: Bedside Glucose 130 mg/dL (74-106)
[2024-11-09] MEDS: MELATONIN 10 MG TABLET PO (21:02)
[2024-11-09] MEDS: Atorvastatin Calcium 80 MG Tablet PO (21:02)
[2024-11-09 21:46] LABS: Bedside Glucose 96 mg/dL (74-106)
[2024-11-10 03:00] VITALS: BP 113/67; PULSE 95; RESP 18; TEMP 36.6; O2SAT 99
[2024-11-10] MEDS: Acetaminophen 325 MG Tablet 650 MG PO (03:02)
[2024-11-10] MEDS: Heparin Injection (Vial) 5,000 UNIT/ML VIAL 5000 UNIT SC ×2 (06:25→14:54)
[2024-11-10 06:45] LABS: Bedside Glucose 105 mg/dL (74-106)
[2024-11-10 07:00] VITALS: PULSE 100
[2024-11-10] MEDS: Albuterol 2.5 MG/3 ML VIAL.NEB. INHALATION ×2 (07:06→12:55)
[2024-11-10] MEDS: Budesonide Respules 0.5 MG/2 ML AMPUL.NEB. INHALATION (07:06)
[2024-11-10 07:15] VITALS: PULSE 94; RESP 18
[2024-11-10 08:34] LABS: Anion Gap 11 (5-15); BUN 26 mg/dL (4-19); BUN/Creat Ratio 11.9 RATIO (10-20); Calcium,Total 9.5 mg/dL (7.6-11.0); Carbon Dioxide 23.5 mmol/L (21.0-32.0); Chloride 109 mmol/L (98-108); Creatinine, Serum 2.16 mg/dL (0.70-1.20); EST Glomerular Filtration Rate 25 (>60); Estimated Creatinine Clearance 38.93 ml/min (50-250); Glucose 98 mg/dL (70-99); Potassium 3.4 mmol/L (3.3-5.1); Sodium Level 144 mmol/L (133-145)
[2024-11-10] MEDS: Pantoprazole Sodium 40 MG Tablet PO (09:49)
[2024-11-10] MEDS: Tolterodine Tartrate 2 MG CAP.SA PO (09:49)
[2024-11-10] MEDS: Senna/Docusate Sodium 1 Tablet 2 TABLET PO (09:49)
[2024-11-10] MEDS: Cyanocobalamin 500 MCG Tablet 1000 MCG PO (09:49)
[2024-11-10] MEDS: Magnesium Chloride 64 MG Delay Rel.Tablet 128 MG PO (09:49)
[2024-11-10 10:00] VITALS: BP 120/64; PULSE 103; RESP 18; TEMP 37.2; O2SAT 94
--- NOTE | 2024-11-10 11:06 | CASEMGMT ---
SW was informed patient was open to going to [facility] or [facility]. SW met with patient. Introduced self and role at [facility]. Patient said this is the first time she has heard any of this. Patient did not remember talking to SW on Sunday. After much discussion patient was agreeable to going to TCU. D[place] told patient SW will make a referral and let her know. SW made a referral to TCU and they can take patient pending pre-cert. D[place]AS will notify patient. Plan: d/c to [facility] TCU pending insurance approval. Jina ROGEL
[2024-11-10 12:56] VITALS: PULSE 101; RESP 16
[2024-11-10 13:08] LABS: Bedside Glucose 94 mg/dL (74-106)
--- NOTE | 2024-11-10 13:16 | CASEMGMT ---
Discharge Planning [facility] notified that pt has chosen another snf. Nancy Gutierrez DC Planning Asst.
--- NOTE | 2024-11-10 13:18 | CASEMGMT ---
Patient was approved by insurance to go to TCU. D[place]AS notified physician. SW notified patient and her sister Laura that patient was approved and she will go today. Plan: d/c to [facility] TCU under skilled level of care. Jina ROGEL
--- NOTE | 2024-11-10 13:48 | PN.HOSP_ITS ---
Reason for Visit Reason for Visit: Diagnoses Hypokalemia (11/07/24) Encephalopathy, unspecified (11/07/24) Acute kidney failure, unspecified (11/07/24) Weakness (11/07/24) Other malaise (11/07/24) Other specified abnormal findings of blood chemistry (11/07/24) Other skilled nursing (current) drug therapy (11/07/24) Subjective Subjective Feeling better. Pain in sacrum after falls. Able to flex LE w/o difficulty. Objective Data Objective Data Vital Signs: Vital Signs Temp Pulse Resp BP Pulse Ox O2 Del Method O2 Flow Rate 37.2 C 101 H 16 120/64 94 Nasal Cannula 2 11/10/24 10:00 11/10/24 12:56 11/10/24 12:56 11/10/24 10:00 11/10/24 10:00 11/10/24 10:17 11/10/24 10:17 Oxygen Flow Rate (L/min) 2 Oxygen Delivery Method Nasal Cannula Weight: 135.9 kg Body Mass Index (BMI) 46.9 Intake & Output: Intake and Output for Last 24 Hours 11/08/24 11/09/24 11/10/24 23:59 23:59 23:59 Intake Total 3600 / 3840 1680 / 1680 220 / 220 Output Total 1000 / 1500 2000 / 2000 550 / 550 Balance 2600 / 2340 -320 / -320 -330 / -330 Lab / Micro Data 11/09/24 07:04 11/10/24 07:13 Labs: Laboratory Results - last 24 hr 11/09/24 16:38: POC Glucose 130 H 11/09/24 21:04: POC Glucose 96 11/10/24 06:24: POC Glucose 105 11/10/24 07:13: Sodium 144, Potassium 3.4, Chloride 109 H, Carbon Dioxide 23.5, Anion Gap 11, BUN 26 H, Creatinine 2.16 H, Estim Creat Clear Calc 38.93 L, Est GFR (MDRD) Non-Af 25 L, BUN/Creatinine Ratio 11.9, Glucose 98, Calcium 9.5 11/10/24 12:28: POC Glucose 94 Micro: Microbiology 11/07/24 11:20 Blood Culture (Wb) - Left Forearm Blood Culture - Preliminary No growth in 48 hours. 11/07/24 11:00 Blood Culture (Wb) - Anticubital Right Blood Culture - Preliminary No growth in 48 hours. 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 deputy Mixed Gram Positive Organisms 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 deputy Mixed Gram Positive Organisms Physical Exam Const alert and no apparent distress HEENT head/scalp atraumatic and moist oral mucous membranes Resp normal respiratory effort, no retractions, no use of accessory muscles and clear to auscultation bilaterally Cardio regular rate, regular rhythm, S1 normal heart sound and S2 normal heart sound GI normal to inspection, nondistended, normoactive bowel sounds, soft to palpation, non-tender and non-distended Extremity Extremity Narrative: flexes hips bilaterally w/o difficulty. Neuro Sensorium / Orientation: awake and alert Assessment & Plan Assessment/Plan (1) PEDRO (acute kidney injury): PLAN: 2/2 dehydration. Improved with IVF. Kidney ultrasound unremarkable. No additional work up. (2) Hypokalemia: PLAN: replaced (3) Elevated troponin: PLAN: Likely skewed given PEDRO. Trended down. No additional work up at this time. (4) Encephalopathy: PLAN: Resolved Likely metabolic and toxic. From PEDRO, plus home medications. Head CT showed no acute process. (5) Debility: PLAN: Did poorly with therapy walking only 15 feet. [facility] To TCU today. PLAN: Plan VTE prophylaxis: LMWH.
--- NOTE | 2024-11-10 13:51 | PCM.TXEXTCAR ---
Diet Diet Order/Speech Therapy: INPATIENT Hospital Diet / Speech Therapy Order(s) 11/07/24 19:24 Diet: Cardiac: Calorie-Controlled Food consistency:: Regular Liquid Consistency:: Regular/Thin Type of Dietary Supplement:: Glucerna Shake Diet Comments: prefers vanilla GS How many daily calories?: 1800 calorie Routine Orders/Code Status Code Status: DNRCC-A DC O2, CPAP, BIPAP needs Home O2 Discharge instructions: No Wound(s) Right knee: Wound Type: Abrasion Therapies Weight Bearing: Full weight bearing Physical Therapy: Eval and Treat Occupational Therapy: Eval and Treat Problem/Diagnosis (1) PEDRO (acute kidney injury): Status: Acute Code(s): N17.9 - Acute kidney failure, unspecified Plan: 2/2 dehydration. Improved with IVF. Kidney ultrasound unremarkable. No additional work up. (2) Hypokalemia: Status: Acute Code(s): E87.6 - Hypokalemia Plan: replaced (3) Elevated troponin: Status: Acute Code(s): R79.89 - Other specified abnormal findings of blood chemistry Plan: Likely skewed given PEDRO. Trended down. No additional work up at this time. (4) Encephalopathy: Status: Acute Code(s): G93.40 - Encephalopathy, unspecified Plan: Resolved Likely metabolic and toxic. From PEDRO, plus home medications. Head CT showed no acute process. (5) Debility: Status: Acute Code(s): R53.81 - Other malaise Plan: Did poorly with therapy walking only 15 feet. Patient will likely require [facility] facility. To TCU today. Plan VTE prophylaxis: LMWH. Allergies/Procedures Done in Hospital Allergies house dust Allergy (Verified 11/07/24 10:21) ITCHY EYES Penicillins Allergy (Verified 11/07/24 10:21) Hives Seasonal Allergies: Uncoded Allergy (Verified 11/07/24 10:21) ITCHY EYES Procedures: None Type of Care/Length of Stay Estimated LOS: Convalescent Care Less Than 30 days Type of Care Needed: Skilled Rehab Potential: Good Prognosis: Good Additional Orders/Day of Discharge Day of Discharge: 11/10/24 Dietary and Speech Recommendations Dietitian Recommendations/Changes: Continue 1800 christine Cardiac diet w/ glucerna shake at meals until mouth pain resolved and po intake improved. Encourage outpt WHY WEIGHT program for fpc wt loss w/ PCP referral Discharge Plan Admission Admit Date/Time: 11/07/24 16:45 Primary Reason for Your Visit: Acute kidney injury. Attending Provider: Blayne Santana Primary Care Provider: Corin Mariscal Consulting Providers: Kaitlyn Winkler Discharge Orders/Prescriptions Prescriptions: New acetaminophen 325 mg Tablet 1,000 mg PO Q8H PRN PRN (Reason: Pain 1-10 Or Fever>100.7) Qty: 0 0RF Continued Dulera 100-5 mcg/actuation HFA aerosol inhaler 2 puff inhalation BID Qty: 13 3RF pantoprazole 40 MG tablet 40 mg PO DAILY rosuvastatin 40 mg Tablet 40 mg PO QHS melatonin 10 mg Tablet 10 mg PO QHS carvedilol 3.125 mg Tablet 3.125 mg PO BID Qty: 60 0RF temazepam 30 mg capsule 30 mg PO QHS cyclobenzaprine 5 mg tablet 5 mg PO TID PRN PRN (Reason: muscle spasm) sennosides [Aminata-guy] 8.6 mg tablet 8.6 mg PO BID PRN PRN (Reason: constipation) ferrous sulfate [iron] 325 mg (65 mg iron) tablet 325 mg PO QDAY cyanocobalamin (vitamin B-12) [Vitamin B-12] 1,000 mcg tablet 1,000 mcg PO DAILY Mounjaro 7.5 mg/0.5 mL pen injector 7.5 mg subcut QWEEK fluoxetine 40 mg capsule 40 mg PO DAILY Linzess 290 mcg capsule 290 mcg PO DAILY trospium 20 mg tablet 20 mg PO BID ergocalciferol (vitamin D2) 1,250 mcg (50,000 unit) capsule 1,250 mcg PO QWEEK albuterol sulfate 90 mcg/actuation HFA aerosol inhaler 1 puff inhalation Q6H PRN (Reason: shortness of breath or wheezing) Qty: 6.7 0RF Changed alprazolam 0.5 mg tablet 0.5 mg PO BID PRN (Reason: anxiety) Qty: 6 0RF Discontinued magnesium 200 mg tablet 200 mg PO DAILY metformin 500 mg tablet extended release 24 hr 500 mg PO BID Referrals / Follow Up: Corin Mariscal MD [Primary Care Provider] - Within 2 Weeks Disposition Disposition (needs filled in before D/C Order can be placed): Retirement Facility
--- NOTE | 2024-11-10 14:00 | PCM.DC.SUM ---
Providers Date of Admission: 11/07/24 Primary Care Physician: Corin Mariscal MD Reason For Visit: PEDRO, HYPOKALEMIA Diagnosis Discharge Diagnosis (1) PEDRO (acute kidney injury): Status: Acute Code(s): N17.9 - Acute kidney failure, unspecified Plan: 2/2 dehydration. Improved with IVF. Kidney ultrasound unremarkable. No additional work up. (2) Hypokalemia: Status: Acute Code(s): E87.6 - Hypokalemia Plan: replaced (3) Elevated troponin: Status: Acute Code(s): R79.89 - Other specified abnormal findings of blood chemistry Plan: Likely skewed given PEDRO. Trended down. No additional work up at this time. (4) Encephalopathy: Status: Acute Code(s): G93.40 - Encephalopathy, unspecified Plan: Resolved Likely metabolic and toxic. From PEDRO, plus home medications. Head CT showed no acute process. (5) Debility: Status: Acute Code(s): R53.81 - Other malaise Plan: Did poorly with therapy walking only 15 feet. Patient will likely require group home facility. To TCU today. Plan VTE prophylaxis: LMWH. Medications at Discharge Home Medications pantoprazole 40 mg tablet,delayed release 40 mg PO DAILY ACID REFLUX 12/09/18 rosuvastatin 40 mg tablet 40 mg PO QHS CHOLESTEROL 07/19/21 melatonin 10 mg tablet 10 mg PO QHS SLEEP 07/16/22 carvedilol 3.125 mg tablet 3.125 mg PO BID HEART #60 tabs 07/20/22 mometasone-formoterol HFA 100 mcg-5 mcg/actuation aerosol inhaler (Dulera) 2 puff inhalation BID SHORTNESS OF BREATH/WHEEZING #13 grams 03/05/23 temazepam 30 mg capsule 30 mg PO QHS INSOMNIA 07/12/23 fluoxetine 40 mg capsule 40 mg PO DAILY depression 01/28/24 linaclotide 290 mcg capsule (Linzess) 290 mcg PO DAILY bowel function 01/28/24 trospium 20 mg tablet 20 mg PO BID see md 01/28/24 ergocalciferol (vitamin D2) 1,250 mcg (50,000 unit) capsule 1,250 mcg PO QWEEK 07/15/24 albuterol sulfate 90 mcg/actuation aerosol inhaler 1 puff inhalation Q6H PRN shortness of breath or wheezing #6.7 grams 07/17/24 cyanocobalamin (vitamin B-12) 1,000 mcg tablet (Vitamin B-12) 1,000 mcg PO DAILY 08/09/24 cyclobenzaprine 5 mg tablet 5 mg PO TID PRN PRN muscle spasm 08/09/24 ferrous sulfate 325 mg (65 mg iron) tablet (iron) 325 mg PO QDAY 08/09/24 sennosides 8.6 mg tablet (Aminata-guy) 8.6 mg PO BID PRN PRN constipation 08/09/24 tirzepatide 7.5 mg/0.5 mL subcutaneous pen injector (Mounjaro) 7.5 mg subcut QWEEK 11/07/24 acetaminophen 325 mg tablet 1,000 mg (3.0769 x 325 mg) PO Q8H PRN PRN Pain 1-10 Or Fever>100.7 #0 tabs 11/10/24 alprazolam 0.5 mg tablet 0.5 mg PO BID PRN anxiety #6 tabs 11/10/24 Hospital Course Operations None Procedures None Summary of Care Provided Minutes Spent on Discharge: 32 Hospital Course: Patient presented confused and with acute kidney injury. Patient had been falling at home and not eating or drinking much. Patient had 4 teeth extracted previous to that. Patient's this her creatinine was at 3.19 and with fluids it is improved down to 2.16. There is other baselines around 1.1 which is what she was on September 30 of this year. Patient also came in confused that was likely due to incomplete removal of medication that she takes chronically that may have led to her confusion. Her mental status is greatly improved. But overall patient is very weak and requiring assistance just to walk 15 feet. Patient has been accepted and will be discharged to the transitional care unit in stable condition. Weight / BMI Weight Weight: 135.9 kg Body Mass Index (BMI) 46.9 ABG / Lab / Microbiology Data 11/09/24 07:04 11/10/24 07:13 Laboratory: Laboratory Results - last 24 hr 11/09/24 16:38: POC Glucose 130 H 11/09/24 21:04: POC Glucose 96 11/10/24 06:24: POC Glucose 105 11/10/24 07:13: Sodium 144, Potassium 3.4, Chloride 109 H, Carbon Dioxide 23.5, Anion Gap 11, BUN 26 H, Creatinine 2.16 H, Estim Creat Clear Calc 38.93 L, Est GFR (MDRD) Non-Af 25 L, BUN/Creatinine Ratio 11.9, Glucose 98, Calcium 9.5 11/10/24 12:28: POC Glucose 94 Microbiology: Microbiology 11/07/24 11:20 Blood Culture (Wb) - Left Forearm Blood Culture - Preliminary No growth in 48 hours. 11/07/24 11:00 Blood Culture (Wb) - Anticubital Right Blood Culture - Preliminary No growth in 48 hours. 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 * Patients 75 years or YOUNGER should receive HIGH intensity statin dose unless contraindicated. You will be required to document reason for non-treatment if statin daily dose does not meet guidelines. HIGH DOSE STATIN THERAPY DAILY Atorvastatin > than or = to 40 mg Rosuvastatin > than or = to 20 mg Amlodipine + Atorvastatin > than or = to 2.5/40 mg Ezetimibe + Simvastatin 10/80 mg Simvastatin 80mg Discharge Plan Admission Admit Date/Time: 11/07/24 16:45 Primary Reason for Your Visit: Acute kidney injury. Attending Provider: Blayne Santana Primary Care Provider: Corin Mariscal Consulting Providers: Kaitlyn Winkler Discharge Orders/Prescriptions Prescriptions: New acetaminophen 325 mg Tablet 1,000 mg PO Q8H PRN PRN (Reason: Pain 1-10 Or Fever>100.7) Qty: 0 0RF Continued Dulera 100-5 mcg/actuation HFA aerosol inhaler 2 puff inhalation BID Qty: 13 3RF pantoprazole 40 MG tablet 40 mg PO DAILY rosuvastatin 40 mg Tablet 40 mg PO QHS melatonin 10 mg Tablet 10 mg PO QHS carvedilol 3.125 mg Tablet 3.125 mg PO BID Qty: 60 0RF temazepam 30 mg capsule 30 mg PO QHS cyclobenzaprine 5 mg tablet 5 mg PO TID PRN PRN (Reason: muscle spasm) sennosides [Aminata-guy] 8.6 mg tablet 8.6 mg PO BID PRN PRN (Reason: constipation) ferrous sulfate [iron] 325 mg (65 mg iron) tablet 325 mg PO QDAY cyanocobalamin (vitamin B-12) [Vitamin B-12] 1,000 mcg tablet 1,000 mcg PO DAILY Mounjaro 7.5 mg/0.5 mL pen injector 7.5 mg subcut QWEEK fluoxetine 40 mg capsule 40 mg PO DAILY Linzess 290 mcg capsule 290 mcg PO DAILY trospium 20 mg tablet 20 mg PO BID ergocalciferol (vitamin D2) 1,250 mcg (50,000 unit) capsule 1,250 mcg PO QWEEK albuterol sulfate 90 mcg/actuation HFA aerosol inhaler 1 puff inhalation Q6H PRN (Reason: shortness of breath or wheezing) Qty: 6.7 0RF Changed alprazolam 0.5 mg tablet 0.5 mg PO BID PRN (Reason: anxiety) Qty: 6 0RF Discontinued magnesium 200 mg tablet 200 mg PO DAILY metformin 500 mg tablet extended release 24 hr 500 mg PO BID Referrals / Follow Up: Corin Mariscal MD [Primary Care Provider] - Within 2 Weeks Disposition Disposition (needs filled in before D/C Order can be placed): [facility] Facility Charges/Coding Visit Charges Inpatient E&M: 08590 Disch Hosp >30min
[2024-11-10] MEDS: Ferrous Sulfate 325 MG Tablet PO (14:54)
== END 2024-11-10 15:50 | disposition skilled nursing facility (03) | DRG 683 ==
LOC: ED 18:01 → PCU 18:32
PROVIDERS: Admitting Provider Internal Medicine; Emergency Provider Emergency Medicine; PCP Family Medicine
DX: N17.9 Acute kidney failure, unspecified (principal); J96.11 Chronic respiratory failure with hypoxia; E11.22 Type 2 diabetes mellitus with diabetic chronic kidney disease; D50.9 Iron deficiency anemia, unspecified; E66.9 Obesity, unspecified; E78.5 Hyperlipidemia, unspecified; Z99.81 Dependence on supplemental oxygen; J44.9 Chronic obstructive pulmonary disease, unspecified; I12.9 Hypertensive chronic kidney disease with stage 1 through stage 4 chronic kidney disease, or unspecified chronic kidney disease; F32.A Depression, unspecified; F13.988 Sedative, hypnotic or anxiolytic use, unspecified with other sedative, hypnotic or anxiolytic-induced disorder; G47.33 Obstructive sleep apnea (adult) (pediatric); N18.1 Chronic kidney disease, stage 1; K21.9 Gastro-esophageal reflux disease without esophagitis; E87.6 Hypokalemia; F41.9 Anxiety disorder, unspecified; E86.0 Dehydration; K58.1 Irritable bowel syndrome with constipation; R53.1 Weakness; R53.81 Other malaise; Z87.891 Personal history of nicotine dependence; Z90.710 Acquired absence of both cervix and uterus; Z79.84 Long term (current) use of oral hypoglycemic drugs; Z68.38 Body mass index [BMI] 38.0-38.9, adult; Z79.85 Long-term (current) use of injectable non-insulin antidiabetic drugs; Z79.51 Long term (current) use of inhaled steroids; Z99.89 Dependence on other enabling machines and devices; Z79.899 Other long term (current) drug therapy; Z98.51 Tubal ligation status; Z90.49 Acquired absence of other specified parts of digestive tract; R79.89 Other specified abnormal findings of blood chemistry; R29.6 Repeated falls; G47.00 Insomnia, unspecified
CPT/HCPCS: 36415; 70450; 71046; 72125; 74176; 76770; 80048; 80053; 80307; 81001; 82077; 82550; 82962; 83605; 83735; 84100; 84300; 84484; 85025; 85610; 85730; 87040; 87086; 87088; 93005; 94640; 94668; 97116; 97161; 97165; 97535; 97802; 99252; 99285; A4216; G0463; J2405

== ENCOUNTER 2024-11-10 16:07 | Inpatient (IN) | payer MEDICARE, MEDICAID, SELFPAY ==
[2024-11-10 16:28] VITALS: BP 133/77; PULSE 103; RESP 16; TEMP 36.5; O2SAT 97
[2024-11-10 16:50] VITALS: BMI 40.5
--- NOTE | 2024-11-10 17:37 | US_ITS ---
PROCEDURE: EXT NON VASC LIMITED/SOFT TISS 11/10/2024 REASON FOR EXAM: RED FIRM AND PAINFUL AREA UNDER RIGHT BUTTOCK TECHNIQUE: Ultrasound targeted to the palpable abnormality in the area of interest along the right lower buttock. COMPARISON: CT abdomen pelvis 11/07/2024. FINDINGS: Within the right lower buttock in the patient's area of palpable lump, there is a heterogeneous, complex rounded structure measuring 3.0 x 2.7 x 2.0 cm. No significant internal vascularity. There is posterior acoustic shadowing, and mild edema throughout the visualized right buttock. US/Ext Non Vasc Limited/Soft Tiss IMPRESSION: Heterogeneous, complex subcutaneous lesion within the right lower buttock, whic h is partially visualized on recent CT abdomen pelvis, and most compatible with inflamed sebaceous cyst. Reading Location: [id number]
[2024-11-10] MEDS: Carvedilol 3.125 MG TABLET PO (17:48)
[2024-11-10] MEDS: Magnesium Citrate 300 ML PO (18:34)
[2024-11-10] MEDS: oxyCODONE 5 MG Tablet PO ×2 (19:04→23:41)
--- NOTE | 2024-11-10 19:20 | HP.PCM_ITS ---
HPI - General General Date of Admission: 11/10/24 Date of Service: 11/10/24 Chief Complaint: Here for rehabilitation. HPI Narrative ALFIE HOGAN, is a 63 Female who presents with followin11/07/2024 [facility] ED fall. Multiple falls, hit head, low back pain, right buttock pain. Not eating or drinking, on Clindamycin for tooth extraction last week. Creatinine 3.19, CT head negative, CT abdomen/pelvis showed fatty liver, constipation, diverticulosis no diverticulitis. 11/07/2024 Admit [facility]. IV fluids, renal ultrasound for acute kidney injury 2/2 dehydration. Elevated troponin 2/2 demand ischemia. Replete potassium, PT/OT/CM. 11/08/2024 Patient wonders about food poisoning. IV fluids for acute kidney injury 2/2 dehydration, renal ultrasound okay. 11/09/2024 Feels well. Acute kidney injury improved with IV fluids. PT/OT for SNF, only able to walk 15 feet with therapy. 11/10/2024 Feeling better, sacral pain after falls. 11/10/2024 Admit to TCU with debility, here for rehabilitation, strengthening, prior to discharge home alone. Resident has firm mass right medial buttock, no signs of inflammation, subcutaneous ultrasound ordered showing inflamed sebaceous cyst. [facility] Medical History (Updated 11/10/24 @ 19:[address] Addison Romero MD) Diabetes Osteoporosis Kidney stones Irregular heart beat Chest pain Normocytic anemia Diabetes Chronic pain CPAP (continuous positive airway pressure) dependence Contusion of left hip Contusion of rib on right side Contusion of left shoulder Contusion of scalp Closed fracture of fibula, proximal, left Pyuria Substance abuse Kidney disease Former smoker BiPAP (biphasic positive airway pressure) dependence Sleep apnea On home oxygen therapy Hypertension Dementia Alcohol withdrawal Alcohol abuse Admitted to alcohol detoxification center Medical marijuana use Frequent falls DVT (deep venous thrombosis) Right ventricular systolic dysfunction Right bundle branch block (RBBB) Essential (primary) hypertension Sepsis Abdominal pain Migraine Chronic renal insufficiency, stage I Pancytopenia Respiratory tract infection due to COVID-19 virus Endocarditis Gastritis Restrictive lung disease Colitis Osteoarthritis Chronic renal failure Depression GENNARO (obstructive sleep apnea) Pneumonia Bronchitis Asthma COPD (chronic obstructive pulmonary disease) Morbid obesity HLD (hyperlipidemia) Bronchiectasis Idiopathic right ventricular dilation Thrombocytopenia Leukopenia Abnormal liver CT Anemia Anxiety Respiratory insufficiency Respiratory failure with hypoxia Colitis with rectal bleeding History of umbilical hernia History of diarrhea Arthritis Gastroesophageal reflux disease Home Medications ?Medication ?Instructions ?Recorded ?Last Taken ?Type pantoprazole 40 mg tablet,delayed 40 mg PO DAILY ACID REFLUX 12/09/18 11/10/24 09:50 History release rosuvastatin 40 mg tablet 40 mg PO QHS CHOLESTEROL 11/09/24 21:20 History melatonin 10 mg tablet 10 mg PO QHS SLEEP 07/16/22 11/09/24 21:05 History carvedilol 3.125 mg tablet 3.125 mg PO BID HEART #60 tabs 07/20/22 07/12/24 Rx mometasone-formoterol HFA 100 2 puff inhalation BID SH ORTNESS OF 03/05/23 11/10/24 07:05 Rx mcg-5 mcg/actuation aerosol BREATH/WHEEZING #13 grams inhaler (Dulera) temazepam 30 mg capsule 30 mg PO QHS INSOMNIA 11/07/24 History fluoxetine 40 mg capsule 40 mg PO DAILY depression 11/08/24 History linaclotide 290 mcg capsule 290 mcg PO DAILY bowel fun ction 01/28/24 07/12/24 History (Linzess) trospium 20 mg tablet 20 mg PO BID see 01/28/24 11/10/24 09:50 History ergocalciferol (vitamin D2) 1,250 1,250 mcg PO QWEEK S upplement 07/15/24 11/07/24 History mcg (50,000 unit) capsule albuterol sulfate 90 mcg/actuation 1 puff inhalation Q 6H PRN 07/17/24 Unknown Rx aerosol inhaler shortness of breath or wheez ing #6.7 grams cyanocobalamin (vitamin B-12) 1,000 mcg PO DAILY Suppl ement 08/09/24 11/10/24 09:45 History 1,000 mcg tablet (Vitamin B-12) cyclobenzaprine 5 mg tablet 5 mg PO TID PRN PRN muscle spasm 08/09/24 Unknown History ferrous sulfate 325 mg (65 mg 325 mg PO QDAY Supplemen t 08/09/24 11/09/24 13:25 History iron) tablet (iron) sennosides 8.6 mg tablet (Aminata-guy) 8.6 mg PO BID PRN PRN constipation 08/09/24 Unknown History tirzepatide 7.5 mg/0.5 mL 7.5 mg subcut QWEEK DM 11/07 Unknown History subcutaneous pen injector (Esmer) acetaminophen 325 mg tablet 1,000 mg (3.0769 x 325 mg) PO Q8H 11/10/24 11/10/24 03:00 Rx PRN PRN Pain 1-10 Or Fever>100.7 #0 tabs alprazolam 0.5 mg tablet 0.5 mg PO BID PRN anxiety #6 tabs 11/10/24 11/08/24 Rx Allergy/AdvReac Type Severity Reaction Status Date / Time house dust Allergy ITCHY EYES Verified 11/07/24 10:21 Penicillins Allergy Hives Verified 11/07/24 10:21 Seasonal Allergies: Uncoded Allergy ITCHY EYES Verified 11/07/24 10:21 Family History Father Colon cancer Mother Cancer pancreatic Surgical History History of tubal ligation History of appendectomy History of hysterectomy History of cholecystectomy Social History household members: none Smoking Status: Former smoker Tobacco: How many years used: 25 how long ago did patient quit smokin, 0.5ppd second hand exposure: Yes alcohol intake: former substance use type: does not use ROS Constitutional Constitutional: Reports weakness; Denies chills, fever(s) or weight gain ENT HEENT: Denies headache(s), nasal congestion or nasal discharge Cardiovascular Cardiovascular: Denies chest pain or palpitations Respiratory/Chest Respiratory/Chest: Denies cough, excessive phlegm production or shortness of breath with exertion Gastrointestinal Gastrointestinal: Reports other Details: Right buttock pain. ; Denies abdominal pain, nausea or vomiting Genitourinary Genitourinary: Denies dysuria Musculoskeletal Musculoskeletal: Denies joint pain or joint swelling Integumentary Integumentary: Denies rash or wounds Neurologic Neurologic: Denies focal weakness, numbness or tingling Psychiatric Psychiatric: Denies anxiety, auditory hallucinations, depression, homicidal ideation or suicidal ideation Vital Signs Vital Signs Vital Signs: 11/10/24 16:28 11/10/24 16:28 Temperature 97.7 F L Temperature Source Temporal Pulse Rate 103 H Pulse Rhythm Regular Pulse Strength Normal (2+) Respiratory Rate 16 Respiratory Effort Normal Non-Labored Respiratory Depth Normal Respiratory Pattern Normal Blood Pressure 133/77 H Blood Pressure Mean 95 Blood Pressure Source Monitor Blood Pressure Position Supine Blood Pressure Location Left Arm Pulse Ox 97 Oxygen Delivery Method Nasal Cannula Nasal Cannula Oxygen Flow Rate (L/min) 2 2 Weight Weight: 117.48 kg Body Mass Index (BMI) 40.5 Physical Exam Const alert General Appearance: cooperative HEENT normocephalic Eyes PERRL and EOMs intact bilaterally Neck supple, no JVD and no carotid bruits Resp normal respiratory effort, normal air movement and clear to auscultation bilaterally Cardio regular rate and regular rhythm GI normal to inspection, nondistended, normoactive bowel sounds, non-tender and non-distended GI Narrative: Right medial gluteal tender mass. Extremity normal capillary refill General Extremity: Negative for edema Skin no rashes or lesions noted General Skin Exam: no breakdown Psych affect normal Appearance: appropriate Results Imaging Radiology Impression Soft Tissue Ultrasound 11/10/24 17:37 IMPRESSION: Heterogeneous, complex subcutaneous lesion within the right lower buttock, which is partially visualized on recent CT abdomen pelvis, and most compatible with inflamed sebaceous cyst. Reading Location: [facility] Assessment & Plan Assessment/Plan (1) Debility: (2) Multiple falls: (3) PEDRO (acute kidney injury): (4) Dehydration: (5) Encephalopathy: (6) Sebaceous cyst: (7) COPD (chronic obstructive pulmonary disease): QUALIFIERS: COPD type: unspecified COPD Qualified Code(s): J44.9 - Chronic obstructive pulmonary disease, unspecified (8) Essential (primary) hypertension: (9) HLD (hyperlipidemia): (10) Thrombocytopenia: (11) Alcohol abuse: (12) Gastroesophageal reflux disease: (13) Insomnia: QUALIFIERS: Insomnia type: unspecified Qualified Code(s): G47.00 - Insomnia, unspecified (14) Anxiety: (15) Depression: (16) Fecal impaction of colon: (17) Overactive bladder: (18) Vitamin D deficiency: (19) Type 2 diabetes mellitus with hyperglycemia: (20) Hypomagnesemia: PLAN: Plan 63 year old female with below past medical history hospitalized for multiple falls, encephalopathy 2/2 acute kidney injury 2/2 dehydration, complicated by right buttock inflamed sebaceous cyst, admitted to TCU with debility, here for rehabilitation, strengthening, prior to discharge home alone. * Debility - PT/OT. * Pain - Tylenol 1000mg q6 prn pain (1-3), Oxycodone 5mg q4 prn pain (4-10). * Bowel - Linzess 290mcg daily (Home supply), Senna/colace 1 tablet bid prn, Magnesuim citrate 300mL daily prn, first dose now, no BM for 9 days. * Adult immunization - Administer pneumonia vaccine, covid vaccine, flu vaccine as appropriate. * DVT prophylaxis - Hold, may need surgery. * Right gluteal sebaceous cyst - Consult General Surgery for incision and drainage. * COPD - Fluticasone/Salmeterol 1 puff Q12, Albuterol 2.5mg neb Q6h prn. * Hyperlipidemia - Atorvastatin 80mg qhs. * HTN - Coreg 3.125mg bidcm. * Vitamin B12 deficiency - B12 1000mcg daily. * Muscle spasm - Flexeril 5mg tid prn. * Vitamin D deficiency - D 1.25mg qweek * Iron deficiency anemia - Ferrous sulfate 325mg daily. * Insomnia - Melatonin 10mg qhs. * GERD - Pantoprazole 40mg daily. * Overactive bladder - Tolterodiine 2mg daily. The following psychotropic medication was present on admission: Xanax 0.5mg bid prn. Psychotropic medication therapy is indicated for a diagnosis of: Anxiety. Based on my clinical evaluation, continuation of the medication is necessary at this time. Gradual dose reduction plan (select one): ____ GDR will be attempted. Will monitor patient symptoms and behaviors in response to GDR. _x___ GRD contraindicated. 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 The following psychotropic medication was present on admission: Fluoxetine 40mg daily. Psychotropic medication therapy is indicated for a diagnosis of: Depression. Based on my clinical evaluation, continuation of the medication is necessary at this time. Gradual dose reduction plan (select one): ____ GDR will be attempted. Will monitor patient symptoms and behaviors in response to GDR. __x__ GRD contraindicated. Reason contraindicated: stable chronic mcfp use. The following psychotropic medication was present on admission: Temazepam 30mg qhs. Psychotropic medication therapy is indicated for a diagnosis of: Insomnia Based on my clinical evaluation, continuation of the medication is necessary at this time. Gradual dose reduction plan (select one): ____ GDR will be attempted. Will monitor patient symptoms and behaviors in response to GDR. __x__ GRD contraindicated. Reason contraindicated: stable chronic mcfp use.
[2024-11-10] MEDS: Fluticasone/Salmeterol 232-14 Inhaler 1 PUFF INHALATION (21:41)
[2024-11-10] MEDS: Atorvastatin Calcium 80 MG Tablet PO (21:44)
[2024-11-10] MEDS: MELATONIN 10 MG TABLET PO (21:45)
[2024-11-10] MEDS: Temazepam 15 MG Capsule 30 MG PO (21:49)
--- NOTE | 2024-11-11 01:55 | NURSING ---
patient received magnesium citrate per report and per patient. magnesium citrate was removed from [employer]nicell but not documented in the MAR as given to patient. notified RN and left communication note for
[2024-11-11] MEDS: oxyCODONE 5 MG Tablet PO ×4 (03:48→21:43)
--- NOTE | 2024-11-11 05:02 | NURSING ---
PATIENT SLEPT VERY LITTLE, PATIENT C/O PERSISTENT PAIN THROUGHOUT THIS SHIFT. COMMUNICATION WITH ON PAIN MEDICATION, NOTIFIED RN.
[2024-11-11 06:13] LABS: Absolute Lymphocyte Count 0.74 X10^3/uL (0.83-4.51); Absolute Neutrophil Count 3.7 X10^3/uL (2.0-7.7); Basophil# 0.02 X10^3/uL; Basophil% 0.4 % (0-1); Eosinophil# 0.03 X10^3/uL; Eosinophils% 0.6 % (0-5); Hematocrit 26.8 % (37-47); Hemoglobin 8.1 g/dL (12.0-15.0); Lymphocyte # 0.74 X10^3/ul (0.83-4.51); Lymphocyte % 15.2 % (19-41); Mean Corp Hgb Conc 30.2 g/dL (32-36); Mean Corpuscular Hgb 27.5 pg (27.0-32.0); Mean Corpuscular Volume 90.8 fL (81-99); Mean Platelet Vol. 9.6 fl (6.2-12.0); Monocyte# 0.37 X10^3/uL; Monocyte% 7.6 % (0-10); NRBC Flagged by Analyzer 0 % (0-5); Neutrophil # 3.65 X10^3/uL (2.7-7.7); Neutrophil % 75.2 % (47-70); Platelet Count 163 K/mm3 (150-450); RBC Distribution Width CV 17.2 % (11.6-14.6); RBC Distribution Width SD 56.7 fl (35.1-43.9); Red Blood Count 2.95 M/mm3 (4.2-5.4); White Blood Count 4.9 K/mm3 (4.4-11.0)
[2024-11-11 06:46] LABS: Anion Gap 10 (5-15); BUN 24 mg/dL (4-19); BUN/Creat Ratio 11.6 RATIO (10-20); Calcium,Total 9.7 mg/dL (7.6-11.0); Carbon Dioxide 25.3 mmol/L (21.0-32.0); Chloride 105 mmol/L (98-108); Creatinine, Serum 2.04 mg/dL (0.70-1.20); EST Glomerular Filtration Rate 27 (>60); Estimated Creatinine Clearance 37.89 ml/min (50-250); Glucose 99 mg/dL (70-99); Potassium 3.3 mmol/L (3.3-5.1); Sodium Level 141 mmol/L (133-145)
--- NOTE | 2024-11-11 07:36 | RAD_ITS ---
PROCEDURE: ABDOMEN SINGLE VIEW 11/11/2024 REASON FOR EXAM: CONSTIPATION. TECHNIQUE: Single view abdomen. COMPARISON: CT scan on 11/07/2024. FINDINGS: Moderate amount of fecal residue in the large bowels. Unremarkable metallic prosthesis of the hips. Unremarkable spinal metallic hardware. Normal visualized lung bases. There is an unremarkable bowel gas pattern. There is no demonstrated free abdominal air. Normal visualized liver. Normal visualized spleen. Normal visualized kidneys. The soft tissue structures of the pelvis are unremarkable. RAD/Abdomen Single View IMPRESSION: Moderate amount of fecal residue in the large bowels, increased. Reading Location: [facility]
--- NOTE | 2024-11-11 07:50 | NURSING ---
pt off unit to xray via w/O2
--- NOTE | 2024-11-11 08:31 | NURSING ---
Dr. Mcdowell not animal control licensing worker, secure text sent to Dr. Dutta about surgical consult.
[2024-11-11] MEDS: Cyanocobalamin 500 MCG Tablet 1000 MCG PO (08:43)
[2024-11-11] MEDS: Pantoprazole Sodium 40 MG Tablet PO (08:43)
[2024-11-11] MEDS: Fluticasone/Salmeterol 232-14 Inhaler 1 PUFF INHALATION ×2 (08:43→21:40)
[2024-11-11] MEDS: Carvedilol 3.125 MG TABLET PO ×2 (08:43→17:44)
[2024-11-11] MEDS: Tolterodine Tartrate 2 MG CAP.SA PO (08:43)
[2024-11-11] MEDS: Fluoxetine HCl 40 MG CAPSULE PO (08:44)
[2024-11-11 08:45] VITALS: BP 106/55; PULSE 91; RESP 18; TEMP 36.2; O2SAT 99
[2024-11-11] MEDS: Tuberculin,Purif.prot.deriv. 50 TU/ML Vial 0.1 ML ID (08:45)
--- NOTE | 2024-11-11 09:35 | NURSING ---
Pt does not use CPAP. Told her grandson it's in her closet. She uses oxygen instead.
--- NOTE | 2024-11-11 11:29 | CASEMGMT ---
Social Work SW met with patient to complete initial assessment. Introduced self and role. Verified/updated contacts. Patient confirmed code status as DNR-CC. Educated to [facility] insurance with NRD 11/17 and continued stay is not guaranteed with each review; providing a 3-day notice for DC. Pt does have Medicaid secondary and receives financial assistance for meeting daily living needs. Pt has a hx of alcohol, tobacco, substance use and suicide attempt. See SW assessment for details. Pt appears in no distress, fair demeanor, and open to conversation. Pt is forward thinking and has no active thoughts of SI. Pt's goal is to return home alone at [facility]. SW will continue to follow for DC planning and support. Miryam Guzman CELL TUBER HAND DIRECTOR OF MANAGED CARE
[2024-11-11] MEDS: Ferrous Sulfate 325 MG Tablet PO (12:18)
[2024-11-11 13:34] VITALS: O2SAT 94
--- NOTE | 2024-11-11 15:52 | NURSING ---
dr Dutta here to assess pt rt buttock abscess/cyst
--- NOTE | 2024-11-11 16:47 | EX.PCM.CON.S ---
Assessment & Plan Assessment/Plan (1) Sebaceous cyst: PLAN: The patient is a 63-year-old female with what appears to be a sebaceous cyst involving the right buttock/right gluteal crease. I do not see any obvious erythema or fluctuance to suggest infection or abscess. I would recommend continued observation of this lesion at this point. This certainly could be excised as an outpatient once she becomes more healthy. I am concerned that have an incision in this area might only lead to chronic wound given her mobility issues currently. Certainly there is a possibility that any type of procedure to remove this lesion at this current time might hinder her progress with therapy. Patient is agreeable to this plan. She can certainly follow-up with us as an outpatient to discuss removal either in the office or in the operating room given her comfort level. Will follow peripherally. Please call if any questions or concerns arise HPI Consult Data Date of Consult: 11/11/24 HPI Narrative Reason for Consultation: Right gluteal sebaceous cyst/subcutaneous mass HPI Narrative: ALFIE HOGAN, is a 63 F who was admitted to [facility] recently with multiple falls. It was felt that she was not progressing sufficiently to return home and so she was admitted to TCU yesterday. It was noted on exam that she had a somewhat tender subcutaneous/soft tissue mass involving the medial aspect of the right gluteal crease. Ultrasound seem to indicate inflamed sebaceous cyst. Patient states that she was unaware of this lesion until recent falls. With these falls this lesion became more tender. She denies any drainage. No fevers or chills. Surgical consult was obtained to evaluate this lesion. [facility] Medical History Diabetes Osteoporosis Kidney stones Irregular heart beat Chest pain Normocytic anemia Diabetes Chronic pain CPAP (continuous positive airway pressure) dependence Contusion of left hip Contusion of rib on right side Contusion of left shoulder Contusion of scalp Closed fracture of fibula, proximal, left Pyuria Substance abuse Kidney disease Former smoker BiPAP (biphasic positive airway pressure) dependence Sleep apnea On home oxygen therapy Hypertension Dementia Alcohol withdrawal Alcohol abuse Admitted to alcohol detoxification center Medical marijuana use Frequent falls DVT (deep venous thrombosis) Right ventricular systolic dysfunction Right bundle branch block (RBBB) Essential (primary) hypertension Sepsis Abdominal pain Migraine Chronic renal insufficiency, stage I Pancytopenia Respiratory tract infection due to COVID-19 virus Endocarditis Gastritis Restrictive lung disease Colitis Osteoarthritis Chronic renal failure Depression GENNARO (obstructive sleep apnea) Pneumonia Bronchitis Asthma COPD (chronic obstructive pulmonary disease) Morbid obesity HLD (hyperlipidemia) Bronchiectasis Idiopathic right ventricular dilation Thrombocytopenia Leukopenia Abnormal liver CT Anemia Anxiety Respiratory insufficiency Respiratory failure with hypoxia Colitis with rectal bleeding History of umbilical hernia History of diarrhea Arthritis Gastroesophageal reflux disease Home Medications ?Medication ?Instructions ?Recorded ?Last Taken ?Type pantoprazole 40 mg tablet,delayed 40 mg PO DAILY ACID REFLUX 12/09/18 11/10/24 09:50 History release rosuvastatin 40 mg tablet 40 mg PO QHS CHOLESTEROL 07/19/21 11/09/24 21:20 History melatonin 10 mg tablet 10 mg PO QHS SLEEP 07/16/22 11/09/24 21:05 History carvedilol 3.125 mg tablet 3.125 mg PO BID HEART #60 tabs 07/20/22 07/12/24 Rx mometasone-formoterol HFA 100 2 puff inhalation BID SHORTNESS OF 03/05/23 11/10/24 07:05 Rx mcg-5 mcg/actuation aerosol BREATH/WHEEZING #13 grams inhaler (Dulera) temazepam 30 mg capsule 30 mg PO QHS INSOMNIA 07/12/23 11/07/24 History fluoxetine 40 mg capsule 40 mg PO DAILY depression 01/28/24 11/08/24 History linaclotide 290 mcg capsule 290 mcg PO DAILY bowel function 01/28/24 07/12/24 History (Linzess) trospium 20 mg tablet 20 mg PO BID see 01/28/24 11/10/24 09:50 History ergocalciferol (vitamin D2) 1,250 1,250 mcg PO QWEEK Supplement 07/15/24 11/07/24 History mcg (50,000 unit) capsule albuterol sulfate 90 mcg/actuation 1 puff inhalation Q6H PRN 07/17/24 Unknown Rx aerosol inhaler shortness of breath or wheezing #6.7 grams cyanocobalamin (vitamin B-12) 1,000 mcg PO DAILY Supplement 08/09/24 11/10/24 09:45 History 1,000 mcg tablet (Vitamin B-12) cyclobenzaprine 5 mg tablet 5 mg PO TID PRN PRN muscle spasm 08/09/24 Unknown History ferrous sulfate 325 mg (65 mg 325 mg PO QDAY Supplement 08/09/24 11/09/24 13:25 History iron) tablet (iron) sennosides 8.6 mg tablet (Aminata-guy) 8.6 mg PO BID PRN PRN constipation 08/09/24 Unknown History tirzepatide 7.5 mg/0.5 mL 7.5 mg subcut QWEEK DM 11/07/24 Unknown History subcutaneous pen injector (Mounjaro) acetaminophen 325 mg tablet 1,000 mg (3.0769 x 325 mg) PO Q8H 11/10/24 11/10/24 03:00 Rx PRN PRN Pain 1-10 Or Fever>100.7 #0 tabs alprazolam 0.5 mg tablet 0.5 mg PO BID PRN anxiety #6 tabs 11/10/24 11/08/24 Rx Allergy/AdvReac Type Severity Reaction Status Date / Time house dust Allergy ITCHY EYES Verified 11/07/24 10:21 Penicillins Allergy Hives Verified 11/07/24 10:21 Seasonal Allergies: Uncoded Allergy ITCHY EYES Verified 11/07/24 10:21 Family History Father Colon cancer Mother Cancer pancreatic Surgical History History of tubal ligation History of appendectomy History of hysterectomy History of cholecystectomy Social History household members: none Smoking Status: Former smoker Tobacco: How many years used: 25 how long ago did patient quit smokin, 0.5ppd second hand exposure: Yes alcohol intake: former substance use type: does not use Physical Exam Narrative She is alert and oriented x 3. She is in no acute distress. Head is normocephalic and atraumatic. Pupils equal round reactive to light. Extraocular muscles are intact. Examination of the right buttock area reveals about a 2-1/2 cm soft tissue mass. This seems to be firm. I do not see any overlying erythema/cellulitis. There is no fluctuance to suggest abscess. Clinically it is difficult to determine if this is a sebaceous cyst versus lipoma. Lab / Micro Data 11/11/24 05:49 11/11/24 05:49 Labs: Laboratory Results - last 24 hr 11/11/24 05:49: WBC 4.9, RBC 2.95 L, Hgb 8.1 L, Hct 26.8 L, MCV 90.8, MCH 27.5, MCHC 30.2 L, RDW Std Deviation 56.7 H, RDW Coeff of Jaun 17.2 H, Plt Count 163, MPV 9.6, Immature Gran % (Auto) 1.000 H, Neut % (Auto) 75.2 H, Lymph % (Auto) 15.2 L, [place] % (Auto) 7.6, Eos % (Auto) 0.6, Baso % (Auto) 0.4, Absolute Neuts (auto) 3.7, Absolute Lymphs (auto) 0.74 L, Nucleated RBC % 0, Sodium 141, Potassium 3.3, Chloride 105, Carbon Dioxide 25.3, Anion Gap 10, BUN 24 H, Creatinine 2.04 H, Estim Creat Clear Calc 37.89 L, Est GFR (MDRD) Non-Af 27 L, BUN/Creatinine Ratio 11.6, Glucose 99, Calcium 9.7 Imaging Radiology Impression Soft Tissue Ultrasound 11/10/24 17:37 IMPRESSION: Heterogeneous, complex subcutaneous lesion within the right lower buttock, which is partially visualized on recent CT abdomen pelvis, and most compatible with inflamed sebaceous cyst. Reading Location: [id number] X-Ray 11/11/24 07:36 IMPRESSION: Moderate amount of fecal residue in the large bowels, increased. Reading Location: [facility] Charges/Coding Visit Charges Inpatient E&M: 94485 Init Hosp L3
[2024-11-11 17:22] VITALS: O2SAT 96
[2024-11-11 20:33] VITALS: PULSE 84; RESP 17; O2SAT 93
[2024-11-11] MEDS: MELATONIN 10 MG TABLET PO (21:40)
[2024-11-11] MEDS: Senna/Docusate Sodium 1 Tablet 2 TABLET PO (21:40)
[2024-11-11] MEDS: Atorvastatin Calcium 80 MG Tablet PO (21:40)
[2024-11-11] MEDS: Temazepam 15 MG Capsule 30 MG PO (21:43)
[2024-11-12] MEDS: oxyCODONE 5 MG Tablet PO ×3 (02:16→21:19)
[2024-11-12 05:59] LABS: Hematocrit 26.6 % (37-47)
[2024-11-12 09:15] VITALS: BP 116/67; PULSE 90; RESP 16; TEMP 36.3; O2SAT 96
[2024-11-12] MEDS: Carvedilol 3.125 MG TABLET PO (09:15)
[2024-11-12] MEDS: Tolterodine Tartrate 2 MG CAP.SA PO (09:15)
[2024-11-12] MEDS: Pantoprazole Sodium 40 MG Tablet PO (09:16)
[2024-11-12] MEDS: LINACLOTIDE 290 MCG CAPSULE PO (09:16)
[2024-11-12] MEDS: Fluoxetine HCl 40 MG CAPSULE PO (09:16)
[2024-11-12] MEDS: Cyanocobalamin 500 MCG Tablet 1000 MCG PO (09:17)
[2024-11-12] MEDS: Fluticasone/Salmeterol 232-14 Inhaler 1 PUFF INHALATION ×2 (09:17→21:18)
[2024-11-12] MEDS: Senna/Docusate Sodium 1 Tablet 2 TABLET PO ×2 (09:17→21:19)
[2024-11-12] MEDS: Electrolyte Solution/Peg's 4000 ML 1000 ML PO (09:19)
[2024-11-12 11:42] VITALS: RESP 18
[2024-11-12] MEDS: Ferrous Sulfate 325 MG Tablet PO (12:34)
--- NOTE | 2024-11-12 12:46 | NURSING ---
Pattern Assembler Note; Activity Asset: Jaspreet Land is independent in her choice of daily activities. She has her smartphone , word puzzle book, magazines and will watch tv. She prefers to be called Kayce. Kayce welcomes visits w/the press brake operator and therapy dog when available. Staff will encourage social activities, remind her of weekly activities and respect her right to say no.
[2024-11-12 16:29] VITALS: O2SAT 94
[2024-11-12] MEDS: MELATONIN 10 MG TABLET PO (21:20)
[2024-11-12] MEDS: Temazepam 15 MG Capsule 30 MG PO (21:20)
[2024-11-12] MEDS: Atorvastatin Calcium 80 MG Tablet PO (21:22)
[2024-11-13] MEDS: oxyCODONE 5 MG Tablet PO ×2 (04:16→18:45)
[2024-11-13 05:49] LABS: Hematocrit 25.7 % (37-47); Hemoglobin 7.7 g/dL (12.0-15.0)
[2024-11-13 06:17] LABS: Anion Gap 11 (5-15); BUN 22 mg/dL (4-19); BUN/Creat Ratio 11.2 RATIO (10-20); Calcium,Total 9.5 mg/dL (7.6-11.0); Carbon Dioxide 27.1 mmol/L (21.0-32.0); Chloride 102 mmol/L (98-108); Creatinine, Serum 1.95 mg/dL (0.70-1.20); EST Glomerular Filtration Rate 29 (>60); Estimated Creatinine Clearance 39.64 ml/min (50-250); Glucose 105 mg/dL (70-99); Potassium 3.2 mmol/L (3.3-5.1); Sodium Level 140 mmol/L (133-145)
--- NOTE | 2024-11-13 06:33 | NURSING ---
PATIENT HAD NO BM THIS SHIFT. WILL CONTINUE TO MONITOR. NOTIFIED RN.
--- NOTE | 2024-11-13 07:32 | NURSING ---
Answered call yris, resident said she doesn't know what to do with the the baby. Entered room to her sitting on the side of the bed holding walker, asked how we can help her, she said what am I supposed to do with the baby. Let her know there was no baby and reminded her she was in TCU for therapy. She said so my sister and my family.... and trailed off. Let her know they aren't here. She then repeatedly stated well now I feel stupid. Provided emotional support, helped her get her legs back in bed to rest comfortably. She denied any other needs. Applied bed alarm for safety. Note left updating Dr. Romero.
--- NOTE | 2024-11-13 08:03 | NURSING ---
Addendum entered by Bridgette Durand 11/13/24 08:19: pt with confusion this am, dr romero updated this AM, new order for UA C&S. pt reports she recently had UTI. pt states she is anxious and aware she is confused. nonpharmacological interventions ineffective, PRN xanax given. will continue to monitor. Original Note: Dr Romero aware of HGB 7.7, new order for blood transfusion 1 unit, infusion center will infuse 11/14 at 0830.
[2024-11-13 08:06] VITALS: BP 97/65; PULSE 87; RESP 16; TEMP 36.8; O2SAT 99
[2024-11-13] MEDS: Potassium Chloride Oral Tablet 20 MEQ 40 MEQ PO (08:13)
[2024-11-13] MEDS: ALPRAZolam 0.5 MG Tablet PO (08:14)
[2024-11-13] MEDS: Tolterodine Tartrate 2 MG CAP.SA PO (08:15)
[2024-11-13] MEDS: Fluticasone/Salmeterol 232-14 Inhaler 1 PUFF INHALATION ×2 (08:16→20:38)
[2024-11-13] MEDS: LINACLOTIDE 290 MCG CAPSULE PO (08:16)
[2024-11-13] MEDS: Fluoxetine HCl 40 MG CAPSULE PO (08:17)
[2024-11-13] MEDS: Pantoprazole Sodium 40 MG Tablet PO (08:17)
[2024-11-13] MEDS: Senna/Docusate Sodium 1 Tablet 2 TABLET PO ×2 (08:19→21:01)
[2024-11-13] MEDS: Cyanocobalamin 500 MCG Tablet 1000 MCG PO (08:20)
--- NOTE | 2024-11-13 08:32 | NURSING ---
Pt exhibited symptoms of confusion while nurse and laborer cutting tool were in room. wafer fab technician asked pt which arm she would like her band on, and pt laughed. wafer fab technician asked again, and pt responded, I'd like to drink my juice first. Nurse rephrased question and pt understood & answered question. Will continue to monitor.
[2024-11-13 09:32] LABS: Bacteria 0 SEEN /hpf (None Seen); Mucous, Urine 0 SEEN /hpf (<or=2+); Red Blood Cells-Urine 0 SEEN /hpf (0-5); Squamous Epithelial Cells - UA 0 SEEN /hpf (5-10); White Blood Cells 0 SEEN /hpf (0-5)
[2024-11-13 09:34] LABS: Color, Urine Yellow (Yellow); Glucose, Dipstick Normal (Normal); Ketone-Dipstick Negative (Negative); Leukocyte Esterase-Dipstick Negative /ul (Negative); Nitrite-Dipstick Negative (Negative); Occult Blood-Urine 10 /ul (Negative); Protein-Dipstick 30 mg/dl (Negative); Urine Bilirubin Dipstick Negative (Negative); Urine Clarity Clear (Clear); Urine Urobilinogen Normal (Normal)
[2024-11-13 10:00] VITALS: PULSE 87; RESP 16; O2SAT 98
[2024-11-13 10:42] VITALS: O2SAT 96
--- NOTE | 2024-11-13 11:09 | NURSING ---
dr cortez notified per pt request, wanting pain med. dr cortez will not restart pain med at this time, only wants pt to have tylenol for now. updated dr cortez on UA, culture pending.
[2024-11-13] MEDS: Ferrous Sulfate 325 MG Tablet PO (12:24)
--- NOTE | 2024-11-13 12:26 | NURSING ---
pt upset about not getting order from dr cortez for pain med, i can't do therapy without pain medication offered tylenol pt refused. sitting in recliner chair eating lunch. call light in reach.
--- NOTE | 2024-11-13 13:56 | PCM.PN.DRR ---
Documented by User: Nicole Sims 11/13/24 14:37 TCU RX Drug Regimen Review Subjective/Objective Subjective/Objective Subjective: 63 YOF admitted to TCU 11/10/24 s/p hospitalization at [facility] for PEDRO/ dehydration secondary to multiple falls at home. Admitted to TCU for strengthening and rehabilitation prior to discharge home where she resides alone. Objective: Allergies house dust Allergy (Verified 11/07/24 10:21) ITCHY EYES Penicillins Allergy (Verified 11/07/24 10:21) Hives Seasonal Allergies: Uncoded Allergy (Verified 11/07/24 10:21) ITCHY EYES Current Medications Generic Name Dose Route Start Last Admin Trade Name Freq PRN Reason Stop Dose Admin Acetaminophen 1,000 mg 11/10/24 20:00 Acetaminophen 500 Mg Tablet PO Q6H PRN PRN Pain Score 1-3 Albuterol Sulfate 2.5 mg 11/10/24 17:00 Albuterol 2.5 Mg/3 Ml Vial.Neb. INHALATION Q6H PRN shortness of breath or wheezing Alprazolam 0.5 mg 11/10/24 16:36 11/13/24 08:14 Alprazolam 0.5 Mg Tablet PO 0.5 mg BID PRN Administration anxiety Atorvastatin Calcium 80 mg 11/10/24 22:00 11/12/24 21:22 Atorvastatin Calcium 80 Mg Tablet PO 80 mg QHS [facility] Administration Carvedilol 3.125 mg 11/10/24 17:00 11/13/24 11:23 Carvedilol 3.125 Mg Tablet PO Not Given BIDCM [facility] Protocol Cyanocobalamin 1,000 mcg 11/11/24 10:00 11/13/24 08:20 Cyanocobalamin 500 Mcg Tablet PO 1,000 mcg DAILY NINA Administration Cyclobenzaprine HCl 5 mg 11/10/24 16:36 Cyclobenzaprine Hcl 5 Mg Tablet PO TID PRN PRN muscle spasm Ergocalciferol 1.25 mg 11/14/24 10:00 Ergocalciferol 1.25 Mg (50, 000 Unit) Capsule PO QWEEK [facility] Ferrous Sulfate 325 mg 11/11/24 12:00 11/13/24 12:24 Ferrous Sulfate 325 Mg Tablet PO 325 mg DAILY@1200 [facility] Administration Fluoxetine HCl 40 mg 11/11/24 10:00 11/13/24 08:17 Fluoxetine Hcl 40 Mg Capsule PO 40 mg DAILY NINA Administration Linaclotide 290 mcg 11/12/24 10:00 11/13/24 08:16 Linaclotide 290 Mcg Capsule PO 290 mcg DAILY NINA Administration Magnesium Citrate 300 ml 11/10/24 20:00 Magnesium Citrate 300 Ml PO DAILY PRN Constipation Melatonin 10 mg 11/10/24 22:00 11/12/24 21:20 Melatonin 10 Mg Tablet PO 10 mg QHS [facility] Administration Pantoprazole Sodium 40 mg 11/11/24 10:00 11/13/24 08:17 Pantoprazole Sodium 40 Mg Tablet PO 40 mg DAILY NINA Administration Potassium Chloride 20 meq 11/14/24 08:00 Potassium Chloride Oral Tablet 20 Meq PO DAILYCM [facility] Fluticasone/Salmeterol 1 puff 11/10/24 22:00 11/13/24 08:16 Fluticasone/Salmeterol 232-14 Inhaler INHALATION 1 puff Q12 [facility] Administration Senna/Docusate Sodium 2 tablet 11/11/24 22:00 11/13/24 08:19 Senna/Docusate Sodium 1 Tablet PO 2 tablet BID NINA Administration Temazepam 30 mg 11/10/24 22:00 11/12/24 21:20 Temazepam 15 Mg Capsule PO 30 mg QHS [facility] Administration Tolterodine Tartrate 2 mg 11/11/24 10:00 11/13/24 08:15 Tolterodine Tartrate 2 Mg Cap.Sa PO 2 mg DAILY NINA Administration Tuberculin PPD 0.1 ml 11/18/24 10:00 Tuberculin,Purif.Prot.Deriv. 50 Tu/Ml Vial ID 11/18/24 10:01 X1 ONE Problem List Hypomagnesemia (Acute) Type 2 diabetes mellitus with hyperglycemia (Acute) Vitamin D deficiency (Acute) Overactive bladder (Acute) Fecal impaction of colon (Acute) Depression (Acute) Anxiety (Acute) Gastroesophageal reflux disease (Acute) Alcohol abuse (Acute) Thrombocytopenia (Acute) Essential (primary) hypertension (Acute) Sebaceous cyst (Acute) Multiple falls (Acute) Encephalopathy (Acute) Debility (Acute) PEDRO (acute kidney injury) (Acute) Dehydration (Acute) Insomnia (Acute) HLD (hyperlipidemia) (Chronic) COPD (chronic obstructive pulmonary disease) (Suspected) Vital Signs Temp Pulse Resp BP Pulse Ox O2 Del Method O2 Flow Rate 98.2 F 87 16 97/65 99 Nasal Cannula 2 11/13/24 08:06 11/13/24 08:06 11/13/24 08:06 11/13/24 08:06 11/13/24 08:06 11/13/24 08:06 11/13/24 08:06 Oxygen Flow Rate (L/min) 2 Oxygen Delivery Method Nasal Cannula Weight: 117.48 kg Body Mass Index (BMI) 40.5 Sodium 140 mmol/L (133-145) 11/13/24 05:18 Potassium 3.2 mmol/L (3.3-5.1) L 11/13/24 05:18 Chloride 102 mmol/L (98-108) 11/13/24 05:18 Carbon Dioxide 27.1 mmol/L (21.0-32.0) 11/13/24 05:18 Anion Gap 11 (5-15) 11/13/24 05:18 BUN 22 mg/dL (4-19) H 11/13/24 05:18 Creatinine 1.95 mg/dL (0.70-1.20) H 11/13/24 05:18 Est GFR (MDRD) Non-Af 29 (>60) L 11/13/24 05:18 BUN/Creatinine Ratio 11.2 RATIO (10-20) 11/13/24 05:18 Glucose 105 mg/dL (70-99) H 11/13/24 05:18 Assessment/Plan: 1. Pain: Tylenol 1000mg PO Q6h PRN Pain 1-10. Please continue to monitor for increased/decreased S/S pain, PRN medication usage, LFT with regular use. - The patient has not needed any PRN doses of Tylenol since admission. Patient's pain appears managed at this time. 2. COPD: Airduo 1 puff Q12, Albuterol nebulization Q6h PRN. Please continue to monitor HR (last 87 BPM), S/S COPD exacerbation, S/S thrush with ICS use. 3. HTN/HLD: Coreg 3.125mg PO BID, Lipitor 80mg PO QHS. Please continue to monitor HR (last 87 BPM), BP (last 97/65), lipid panel annually or sooner if clinically indicated (last lipid panel WNL from 08/2024) 4. OAB: Detrol 2mg PO Daily. Please continue to monitor for constipation, headache, medication effectiveness. 5. GERD/ B12 deficiency: Protonix 40mg PO Daily, Vitamin b12 1000mcg PO Daily. Please continue to monitor for abdominal pain, headache, B12 level (last 301 on 07/15/24). 6. Vitamin D Deficiency: Ergocalciferol 50,000 unit PO weekly. Please continue to monitor Vitamin D levels (last 39.1 08/14/23). Please consider obtaining an updated Vitamin D level (last completed >1 year ago), thank you. 7. Anemia: Ferrous sulfate 325mg PO daily. Please continue to monitor for stomach upset, N/V, iron studies as clinically indicated. 8. Hypokalemia: K-dur 20mEq PO Daily. Please continue to monitor potassium levels (last K = 3.2 this morning), stomach upset/ nausea. 9. Muscle Spasm: Flexeril 5mg PO TID PRN. Please continue to monitor dizziness, drowsiness, headache, PRN medication usage. 10. Bowel: Linzess 290mg PO Daily, Senna/Docusate 2 tab PO BID, magnesium Citrate 300mL PO Daily PRN. Please continue to monitor for increased/decreased constipation and/or diarrhea. -The patient has not had a documented BM since admission. Please consider giving PRN medication to help facilitate a bowel movement, thank you. Assessment/Plan for indications treated with psychotropic medications: 1. Depression: Prozac 40mg PO daily. Monitor for diarrhea, nausea, headache, anxiety or drowsiness, suicidal thoughts or behaviors (Boxed Warning), symptoms of bleeding, symptoms of serotonin syndrome (including agitation, confusion, hyperreflexia, rigidity/myoclonus, tremor, tachycardia, tachypnea), sodium levels (last Na = 140 on 11/13) Monitor for efficacy including resident symptoms, behaviors and indications of distress. Monitor for tolerability including mental status, cognition, excessive sleepiness, withdrawal or decreased participation in activities and decline in physical functioning. Maximize use of nonpharmacologic/behavioral interventions to facilitate dose reduction or discontinuation as appropriate. Please evaluate the appropriateness of GDR unless contraindicated. If appropriate, GDR should be attempted in 2 separate quarters within the first year of use or admission to TCU. If GDR attempted, monitor resident symptoms/behaviors. 2. Anxiety: Xanax 0.5mg PO BID PRN. Monitor for sedation, mental status and cognition. Monitor for falls (risk factor for falls) and implement fall prevention strategies. Monitor for respiratory depression. RR range since admission = 16-18 breaths/min Monitor for efficacy including resident symptoms, behaviors and indications of distress. Monitor for tolerability including mental status, cognition, excessive sleepiness, withdrawal or decreased participation in activities and decline in physical functioning. Maximize use of nonpharmacologic/behavioral interventions to facilitate dose reduction or discontinuation as appropriate. Please evaluate the appropriateness of GDR unless contraindicated. If appropriate, GDR should be attempted in 2 separate quarters within the first year of use or admission to TCU. If GDR attempted, monitor resident symptoms/behaviors. 3. Insomnia: melatonin 10mg PO QHS, Temazepam 30mg PO QHS. Monitor for sedation, mental status and cognition. Monitor for falls (risk factor for falls) and implement fall prevention strategies. Monitor for respiratory depression. RR range since admission = 16-18 breaths/min Monitor for efficacy including resident symptoms, behaviors and indications of distress. Monitor for tolerability including mental status, cognition, excessive sleepiness, withdrawal or decreased participation in activities and decline in physical functioning. Maximize use of nonpharmacologic/behavioral interventions to facilitate dose reduction or discontinuation as appropriate. Please evaluate the appropriateness of GDR unless contraindicated. If appropriate, GDR should be attempted in 2 separate quarters within the first year of use or admission to TCU. If GDR attempted, monitor resident symptoms/behaviors. Medical chart and medication regimen reviewed. The following medication irregularities or issues were identified: 1. 6. Vitamin D Deficiency: Ergocalciferol 50,000 unit PO weekly. Please continue to monitor Vitamin D levels (last 39.1 08/14/23). Please consider obtaining an updated Vitamin D level (last completed >1 year ago), thank you. Date Date of Note: 11/13/24 Documented by User: Dr. Addison Romero MD 11/13/24 17:26 TCU RX Drug Regimen Review Provider Comments Provider responsibility Provider Comments to Recommendations by Pharmacy Agree
--- NOTE | 2024-11-13 14:31 | NURSING ---
pt rating pain 8/10 in therapy but refusing to take PRN tylenol, wants to speak with Dr Romero. message left for him.
[2024-11-13] MEDS: Bisacodyl 10 MG Suppository RC (16:02)
--- NOTE | 2024-11-13 16:11 | NURSING ---
pt up on BSC unable to have BM, voided, but feels she needs to defecate, offered SSE, pt refused but ok with dulcolax suppository. dr cortez notified, order placed for suppository.
[2024-11-13 18:38] VITALS: BP 93/55; PULSE 86
[2024-11-13] MEDS: Atorvastatin Calcium 80 MG Tablet PO (21:00)
[2024-11-13] MEDS: MELATONIN 10 MG TABLET PO (21:00)
[2024-11-13] MEDS: Temazepam 15 MG Capsule 30 MG PO (21:06)
[2024-11-14] VITALS (7 sets, daily range): BP systolic 100–110; BP diastolic 49–69; PULSE 81–89; RESP 16–18; TEMP 36–37.3; O2SAT 93–98; BMI 40.5
[2024-11-14] MEDS: oxyCODONE 5 MG Tablet PO ×5 (00:28→21:36)
--- NOTE | 2024-11-14 01:37 | NURSING ---
PATIENT APPEARS TO HAVE INTERMITTENT CONFUSION THIS SHIFT ALONG WITH HALLUCINATING BEHAVIOR EXHIBITED. NOTIFIED RN. WILL CONTINUE TO MONITOR.
--- NOTE | 2024-11-14 05:01 | NURSING ---
PATIENT VERY RESTLESS AND AGITATED THIS MORNING, THIS NURSE CONTINUING TO REORIENT PATIENT. PATIENT STATES SHE SEE'S SPIDERS ON THE CEILING NOTIFIED RN. WILL CONTINUE TO MONITOR.
[2024-11-14 05:47] LABS: Hemoglobin 7.2 g/dL (12.0-15.0)
[2024-11-14 06:52] LABS: Anion Gap 9 (5-15); BUN 22 mg/dL (4-19); BUN/Creat Ratio 11.8 RATIO (10-20); Calcium,Total 9.3 mg/dL (7.6-11.0); Chloride 104 mmol/L (98-108); Creatinine, Serum 1.84 mg/dL (0.70-1.20); EST Glomerular Filtration Rate 31 (>60); Estimated Creatinine Clearance 42.01 ml/min (50-250); Glucose 93 mg/dL (70-99); Potassium 3.4 mmol/L (3.3-5.1); Sodium Level 140 mmol/L (133-145); Vitamin D,25 Hydroxy 27.6 ng/mL (30-100)
[2024-11-14] MEDS: Carvedilol 3.125 MG TABLET PO ×2 (07:51→16:53)
[2024-11-14] MEDS: Fluticasone/Salmeterol 232-14 Inhaler 1 PUFF INHALATION ×2 (07:51→21:31)
[2024-11-14] MEDS: Pantoprazole Sodium 40 MG Tablet PO (07:51)
[2024-11-14] MEDS: Senna/Docusate Sodium 1 Tablet 2 TABLET PO ×2 (07:51→21:33)
[2024-11-14] MEDS: Potassium Chloride Oral Tablet 20 MEQ PO (07:51)
[2024-11-14] MEDS: Cyanocobalamin 500 MCG Tablet 1000 MCG PO (07:52)
[2024-11-14] MEDS: Fluoxetine HCl 40 MG CAPSULE PO (07:52)
[2024-11-14] MEDS: Ergocalciferol 1.25 MG (50, 000 UNIT) Capsule PO (07:52)
[2024-11-14] MEDS: LINACLOTIDE 290 MCG CAPSULE PO (07:53)
[2024-11-14] MEDS: Tolterodine Tartrate 2 MG CAP.SA PO (07:53)
--- NOTE | 2024-11-14 08:40 | NURSING ---
R' OFF UNIT AT THIS TIME TO RECEIVE BLOOD TRANSFUSION.
[2024-11-14] MEDS: Acetaminophen 500 MG Tablet 1000 MG PO (11:59)
[2024-11-14] MEDS: Ferrous Sulfate 325 MG Tablet PO (12:00)
--- NOTE | 2024-11-14 12:04 | NURSING ---
R' BACK FROM BLOOD TRANSFUSION. EATING LUNCH AT THIS TIME. VS OBTAINED. DENIES SOB/ITCHING OXY AND TYLENOL GIVEN FOR PAIN. ALSO, NOTIFIED HER OF CONSULT FOR GASTRO.
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
[2024-11-14] MEDS: Atorvastatin Calcium 80 MG Tablet PO (21:33)
[2024-11-14] MEDS: MELATONIN 10 MG TABLET PO (21:33)
[2024-11-14] MEDS: Temazepam 15 MG Capsule PO (21:36)
[2024-11-15] MEDS: oxyCODONE 5 MG Tablet PO ×4 (02:13→22:02)
[2024-11-15 07:07] LABS: Anion Gap 10 (5-15); BUN 23 mg/dL (4-19); BUN/Creat Ratio 12.3 RATIO (10-20); Calcium,Total 9.4 mg/dL (7.6-11.0); Carbon Dioxide 26.2 mmol/L (21.0-32.0); Chloride 106 mmol/L (98-108); Creatinine, Serum 1.86 mg/dL (0.70-1.20); EST Glomerular Filtration Rate 30 (>60); Estimated Creatinine Clearance 41.56 ml/min (50-250); Glucose 103 mg/dL (70-99); Potassium 3.5 mmol/L (3.3-5.1); Sodium Level 142 mmol/L (133-145)
[2024-11-15] MEDS: Carvedilol 3.125 MG TABLET PO ×2 (08:37→17:36)
[2024-11-15] MEDS: Fluoxetine HCl 40 MG CAPSULE PO (08:37)
[2024-11-15] MEDS: Tolterodine Tartrate 2 MG CAP.SA PO (08:37)
[2024-11-15] MEDS: Senna/Docusate Sodium 1 Tablet 2 TABLET PO ×2 (08:37→22:03)
[2024-11-15] MEDS: Pantoprazole Sodium 40 MG Tablet PO (08:38)
[2024-11-15] MEDS: Potassium Chloride Oral Tablet 20 MEQ PO (08:38)
[2024-11-15] MEDS: LINACLOTIDE 290 MCG CAPSULE PO (08:38)
[2024-11-15] MEDS: Cyanocobalamin 500 MCG Tablet 1000 MCG PO (08:38)
[2024-11-15] MEDS: Fluticasone/Salmeterol 232-14 Inhaler 1 PUFF INHALATION ×2 (08:38→21:55)
[2024-11-15 08:41] VITALS: BP 114/63; PULSE 81; RESP 16; O2SAT 95
[2024-11-15 11:50] VITALS: O2SAT 96
[2024-11-15] MEDS: Ferrous Sulfate 325 MG Tablet PO (12:11)
[2024-11-15 12:31] LABS: Hematocrit 30.9 % (37-47); Hemoglobin 9.4 g/dL (12.0-15.0)
[2024-11-15 15:36] VITALS: TEMP 36.5
[2024-11-15 17:45] VITALS: BP 134/76; PULSE 86
[2024-11-15] MEDS: Temazepam 15 MG Capsule PO (22:01)
[2024-11-15] MEDS: Acetaminophen 500 MG Tablet 1000 MG PO (22:02)
[2024-11-15] MEDS: Atorvastatin Calcium 80 MG Tablet PO (22:03)
[2024-11-15] MEDS: MELATONIN 10 MG TABLET PO (22:03)
[2024-11-16] MEDS: oxyCODONE 5 MG Tablet PO ×4 (02:32→21:27)
[2024-11-16 07:28] LABS: Anion Gap 9 (5-15); BUN 24 mg/dL (4-19); Calcium,Total 9.3 mg/dL (7.6-11.0); Carbon Dioxide 26.9 mmol/L (21.0-32.0); Chloride 107 mmol/L (98-108); Creatinine, Serum 1.71 mg/dL (0.70-1.20); EST Glomerular Filtration Rate 33 (>60); Estimated Creatinine Clearance 45.21 ml/min (50-250); Glucose 96 mg/dL (70-99); Potassium 3.6 mmol/L (3.3-5.1); Sodium Level 142 mmol/L (133-145)
[2024-11-16 08:33] VITALS: BP 105/62; PULSE 85; RESP 16; TEMP 36.4; O2SAT 98
[2024-11-16] MEDS: Fluticasone/Salmeterol 232-14 Inhaler 1 PUFF INHALATION ×2 (08:41→21:19)
[2024-11-16] MEDS: Tolterodine Tartrate 2 MG CAP.SA PO (08:41)
[2024-11-16] MEDS: Potassium Chloride Oral Tablet 20 MEQ PO (08:41)
[2024-11-16] MEDS: Carvedilol 3.125 MG TABLET PO ×2 (08:41→17:08)
[2024-11-16] MEDS: LINACLOTIDE 290 MCG CAPSULE PO (08:42)
[2024-11-16] MEDS: Pantoprazole Sodium 40 MG Tablet PO (08:42)
[2024-11-16] MEDS: Cyanocobalamin 500 MCG Tablet 1000 MCG PO (08:42)
[2024-11-16] MEDS: Senna/Docusate Sodium 1 Tablet 2 TABLET PO (08:42)
[2024-11-16] MEDS: Fluoxetine HCl 40 MG CAPSULE PO (08:44)
[2024-11-16] MEDS: Ferrous Sulfate 325 MG Tablet PO (11:19)
[2024-11-16] MEDS: Acetaminophen 500 MG Tablet 1000 MG PO (13:00)
[2024-11-16] MEDS: cycloBENZAPRine HCl 5 MG TABLET PO (13:05)
[2024-11-16 17:05] VITALS: BP 105/73; PULSE 82
[2024-11-16 20:00] VITALS: PULSE 68; O2SAT 99
[2024-11-16] MEDS: MELATONIN 10 MG TABLET PO (21:20)
[2024-11-16] MEDS: Atorvastatin Calcium 80 MG Tablet PO (21:20)
[2024-11-16] MEDS: Temazepam 15 MG Capsule PO (21:26)
[2024-11-16 22:23] VITALS: PULSE 68; O2SAT 99
--- NOTE | 2024-11-16 23:50 | NURSING ---
Patient voiced having bad dream that was upsetting, patient teary, 1:1, redirection, distraction, given. patient feeling better.
[2024-11-17 06:37] VITALS: PULSE 86; O2SAT 97
[2024-11-17 07:45] VITALS: O2SAT 98
[2024-11-17] MEDS: Carvedilol 3.125 MG TABLET PO ×2 (07:58→17:33)
[2024-11-17] MEDS: Tolterodine Tartrate 2 MG CAP.SA PO (07:58)
[2024-11-17] MEDS: oxyCODONE 5 MG Tablet PO ×4 (07:58→22:24)
[2024-11-17] MEDS: Potassium Chloride Oral Tablet 20 MEQ PO (07:58)
[2024-11-17] MEDS: Fluticasone/Salmeterol 232-14 Inhaler 1 PUFF INHALATION ×2 (07:59→22:25)
[2024-11-17] MEDS: Fluoxetine HCl 40 MG CAPSULE PO (07:59)
[2024-11-17] MEDS: Pantoprazole Sodium 40 MG Tablet PO (07:59)
[2024-11-17] MEDS: Cyanocobalamin 500 MCG Tablet 1000 MCG PO (08:00)
--- NOTE | 2024-11-17 08:55 | NURSING ---
Offered covid vaccine, VIS provided. Resident declines.
--- NOTE | 2024-11-17 09:01 | NURSING ---
Audience Coordinator Note; MDS for 11/17/2024 Complete
[2024-11-17 10:00] VITALS: BP 109/57; PULSE 86; RESP 16; TEMP 36.5; O2SAT 97
[2024-11-17] MEDS: Ferrous Sulfate 325 MG Tablet PO (12:04)
[2024-11-17 16:55] VITALS: O2SAT 98
[2024-11-17] MEDS: Atorvastatin Calcium 80 MG Tablet PO (22:24)
[2024-11-17] MEDS: Temazepam 15 MG Capsule PO (22:24)
[2024-11-17] MEDS: MELATONIN 10 MG TABLET PO (22:24)
--- NOTE | 2024-11-18 01:09 | NURSING ---
Personal alarm sounding at this time, patient immediately assessed, observed walking toward door without walker, going to the bathroom, looking for [place] and them, unable to state correct location,tearful at times, laughing loudly in response when asked questions. Memory Getting more clear when assisted back to bed from bathroom , reports hospital psychosis dreams, tearful states this is so embarrassing. 1:1 provided, feelings validated. Ice water provided upon request. WASTE ELIMINATION in room assisting with care. Maybe I was just dreaming. Positioned for comfort. No distress observed or reported at this time. Personal alarm in place and functioning properly. Personal items within reach. Denies further requests. Call light in reach. Written communication left for Dr. Romero review in AM.
--- NOTE | 2024-11-18 04:30 | NURSING ---
PATIENT HAS HAD SIGNIFICANT CONFUSION THROUGHOUT THIS SHIFT NOTIFIED RN WILL CONTINUE TO MONITOR FOR ANY MOOD CHANGES OR DISTURBANCES, PATIENT ATTEMPTING TO GET OUT OF BED WITHOUT USE OF CALL LIGHT AND WITHOUT ASSISTANCE. THIS NURSE EDUCATED PATIENT ON USE OF CALL LIGHT AND WAITING FOR AIDES OR NURSES TO HELP HER WALK TO THE BATHROOM.
[2024-11-18 05:47] LABS: Absolute Neutrophil Count 1.7 X10^3/uL (2.0-7.7); Basophil# 0.01 X10^3/uL; Basophil% 0.4 % (0-1); Eosinophil# 0.04 X10^3/uL; Eosinophils% 1.5 % (0-5); Hematocrit 26.9 % (37-47); Hemoglobin 8.1 g/dL (12.0-15.0); Lymphocyte % 22.5 % (19-41); Mean Corp Hgb Conc 30.1 g/dL (32-36); Mean Corpuscular Hgb 28.3 pg (27.0-32.0); Mean Corpuscular Volume 94.1 fL (81-99); Mean Platelet Vol. 9.5 fl (6.2-12.0); Monocyte# 0.29 X10^3/uL; Monocyte% 10.9 % (0-10); NRBC Flagged by Analyzer 0 % (0-5); Neutrophil # 1.72 X10^3/uL (2.7-7.7); Neutrophil % 64.3 % (47-70); POSITIVE DIFFERENTIAL YES; Platelet Count 127 K/mm3 (150-450); RBC Distribution Width CV 16.8 % (11.6-14.6); RBC Distribution Width SD 56.9 fl (35.1-43.9); Red Blood Count 2.86 M/mm3 (4.2-5.4); White Blood Count 2.7 K/mm3 (4.4-11.0)
[2024-11-18 06:15] LABS: Anion Gap 10 (5-15); BUN 24 mg/dL (4-19); BUN/Creat Ratio 14.7 RATIO (10-20); Calcium,Total 9.1 mg/dL (7.6-11.0); Carbon Dioxide 26.7 mmol/L (21.0-32.0); Chloride 108 mmol/L (98-108); EST Glomerular Filtration Rate 36 (>60); Estimated Creatinine Clearance 48.32 ml/min (50-250); Glucose 108 mg/dL (70-99); Potassium 3.4 mmol/L (3.3-5.1); Sodium Level 144 mmol/L (133-145)
[2024-11-18 06:51] LABS: Differential Indicated SCAN CRITERIA MET
[2024-11-18 06:52] LABS: Differential Comment SCANNED
[2024-11-18 07:30] VITALS: O2SAT 95
[2024-11-18 07:55] VITALS: BP 126/81; PULSE 89; RESP 16; TEMP 36.6; O2SAT 95
[2024-11-18] MEDS: Potassium Chloride Oral Tablet 20 MEQ PO (08:00)
[2024-11-18] MEDS: Carvedilol 3.125 MG TABLET PO ×2 (08:00→17:29)
[2024-11-18] MEDS: Fluoxetine HCl 40 MG CAPSULE PO (08:01)
[2024-11-18] MEDS: Fluticasone/Salmeterol 232-14 Inhaler 1 PUFF INHALATION ×2 (08:01→22:04)
[2024-11-18] MEDS: LINACLOTIDE 290 MCG CAPSULE PO (08:01)
[2024-11-18] MEDS: Pantoprazole Sodium 40 MG Tablet PO (08:01)
[2024-11-18] MEDS: Tolterodine Tartrate 2 MG CAP.SA PO (08:01)
[2024-11-18] MEDS: Cyanocobalamin 500 MCG Tablet 1000 MCG PO (08:02)
[2024-11-18] MEDS: oxyCODONE 5 MG Tablet 2.5 MG PO (08:02)
[2024-11-18] MEDS: Acetaminophen 500 MG Tablet 1000 MG PO ×2 (08:05→22:20)
[2024-11-18 10:00] VITALS: PULSE 80; RESP 18; O2SAT 97
[2024-11-18 10:25] VITALS: BMI 41.0
[2024-11-18] MEDS: Ferrous Sulfate 325 MG Tablet PO (11:30)
[2024-11-18] MEDS: Tuberculin,Purif.prot.deriv. 50 TU/ML Vial 0.1 ML ID (11:35)
[2024-11-18 13:54] VITALS: O2SAT 96
[2024-11-18 17:30] VITALS: BP 133/88; PULSE 83
[2024-11-18] MEDS: Atorvastatin Calcium 80 MG Tablet PO (22:05)
[2024-11-18] MEDS: Senna/Docusate Sodium 1 Tablet 2 TABLET PO (22:05)
[2024-11-18] MEDS: MELATONIN 10 MG TABLET PO (22:05)
--- NOTE | 2024-11-18 22:52 | NURSING ---
THIS NURSE CONSULTED REGARDING MEDICATION ADMINISTRATION OF TEMAZEPAM 7.5 MG PO THIS MEDICATION IS ONLY AVAILABLE IN 15 MG CAPSULES. CONSULTED VIA TELEPHONE REGARDING THIS MEDICATION, APPROVAL OF INCREASE TO 15 MG PO TO GIVE NOW VIA TELEPHONE ORDER READ BACK AND VERIFIED.
[2024-11-18] MEDS: Temazepam 15 MG Capsule PO (23:04)
[2024-11-19 05:39] LABS: Hematocrit 26.4 % (37-47)
[2024-11-19] MEDS: oxyCODONE 5 MG Tablet 2.5 MG PO ×2 (06:15→16:23)
[2024-11-19] MEDS: Acetaminophen 500 MG Tablet 1000 MG PO ×2 (06:16→16:24)
[2024-11-19] MEDS: Carvedilol 3.125 MG TABLET PO ×2 (08:24→16:24)
[2024-11-19] MEDS: Potassium Chloride Oral Tablet 20 MEQ PO (08:24)
[2024-11-19] MEDS: LINACLOTIDE 290 MCG CAPSULE PO (08:24)
[2024-11-19] MEDS: Tolterodine Tartrate 2 MG CAP.SA PO (08:24)
[2024-11-19] MEDS: Fluticasone/Salmeterol 232-14 Inhaler 1 PUFF INHALATION ×2 (08:24→21:32)
[2024-11-19] MEDS: Pantoprazole Sodium 40 MG Tablet PO (08:24)
[2024-11-19] MEDS: Fluoxetine HCl 40 MG CAPSULE PO (08:24)
[2024-11-19] MEDS: Cyanocobalamin 500 MCG Tablet 1000 MCG PO (08:25)
[2024-11-19 08:28] VITALS: BP 129/62; PULSE 84; RESP 16; TEMP 36.2; O2SAT 97
[2024-11-19 09:15] VITALS: O2SAT 95
[2024-11-19] MEDS: Ferrous Sulfate 325 MG Tablet PO (11:21)
[2024-11-19 16:25] VITALS: BP 142/77; PULSE 86
--- NOTE | 2024-11-19 16:29 | CASEMGMT ---
Plan of care meeting held today with pt present and pt's sister Laura on speaker phone. Therapy/Nutrition/Activities provided updates. Pt is progressing well with therapy. [place] educated pt to [facility] and that review date was 11/17 and determination on continued stay has not yet been made. Pt is requesting to return home at this time and pt's sister is supportive of this. DC date set for 11/20. Pt will return to her home alone. Pt has all needed DME. Pt's sister can transport pt and will bring a portable oxygen tank in for discharge. Pt is agreeable to [facility] PT/OT. A list of home health providers including quality and resource use data and consistent with the patient?s preferred geographic region, medical needs, and insurance network were provided from the [employer] Guide. Pt preferred provider is [facility]. Referral made, [place] will await determination of acceptance. Pt states that her grandson will be setting up all meds and assisting pt to ensure medications do not get mixed up. [place] spoke with Charge Nurse. Pt to have a scope tomorrow with GI but can dc home after this scope. Pt is comfortable with this plan. Pt denies any other dc needs. Discharge Date: 11/20 Discharge Disposition: Home with [facility] PT/OT, pending acceptance BERNIE Andujar
[2024-11-19] MEDS: Bisacodyl 5 MG Tablet 20 MG PO (17:32)
--- NOTE | 2024-11-19 17:53 | EX.PCM.CON.G ---
HPI Consult Data Date of Consult: 11/19/24 HPI Narrative Reason for Consultation: Anemia and lower GI bleed HPI Narrative: ALFIE HOGAN, is a 63 F who presented to the emergency department at [facility] on 11/07/2024 with a chief complaint of falls.d patient has had multiple falls in the last several days. She reports at least 4 days and hit her head 1 time. On presentation she was complaining of some low back and buttock pain. She also reported that she not been eating or drinking much recently. Sunday of last week she had 4 teeth extracted and then ended up with dry socket and one of them so her p.o. intake has been drastically reduced due to mouth pain. She had been on clindamycin and had been taking it without missing any doses. She lives alone but does have family in the area. She is currently in the TCU rehabbing and scheduled to go home. I was asked to see her after her hemoglobin decreased all way down to 6.5 and she was transfused units of packed red blood cells and going up back up to 8.5 and currently is down to 8.0. Her stools were noted to be positive for blood. [facility] Medical History Chronic prescription benzodiazepine use Diabetes Osteoporosis Kidney stones Irregular heart beat Chest pain Normocytic anemia Diabetes Chronic pain CPAP (continuous positive airway pressure) dependence Contusion of left hip Contusion of rib on right side Contusion of left shoulder Contusion of scalp Closed fracture of fibula, proximal, left Pyuria Substance abuse Kidney disease Former smoker BiPAP (biphasic positive airway pressure) dependence Sleep apnea On home oxygen therapy Hypertension Dementia Alcohol withdrawal Alcohol abuse Admitted to alcohol detoxification center Medical marijuana use Frequent falls DVT (deep venous thrombosis) Right ventricular systolic dysfunction Right bundle branch block (RBBB) Essential (primary) hypertension Sepsis Abdominal pain Migraine Chronic renal insufficiency, stage I Pancytopenia Respiratory tract infection due to COVID-19 virus Endocarditis Gastritis Restrictive lung disease Colitis Osteoarthritis Chronic renal failure Depression GENNARO (obstructive sleep apnea) Pneumonia Bronchitis Asthma COPD (chronic obstructive pulmonary disease) Morbid obesity HLD (hyperlipidemia) Bronchiectasis Idiopathic right ventricular dilation Thrombocytopenia Leukopenia Abnormal liver CT Anemia Anxiety Respiratory insufficiency Respiratory failure with hypoxia Colitis with rectal bleeding History of umbilical hernia History of diarrhea Arthritis Gastroesophageal reflux disease Home Medications ?Medication ?Instructions ?Recorded ?Last Taken ?Type pantoprazole 40 mg tablet,delayed 40 mg PO DAILY ACID REFLUX 12/09/18 11/10/24 09:50 History release rosuvastatin 40 mg tablet 40 mg PO QHS CHOLESTEROL 07/19/21 11/09/24 21:20 History melatonin 10 mg tablet 10 mg PO QHS SLEEP 07/16/22 11/09/24 21:05 History carvedilol 3.125 mg tablet 3.125 mg PO BID HEART #60 tabs 07/20/22 07/12/24 Rx mometasone-formoterol HFA 100 2 puff inhalation BID SHORTNESS OF 03/05/23 11/10/24 07:05 Rx mcg-5 mcg/actuation aerosol BREATH/WHEEZING #13 grams inhaler (Dulera) temazepam 30 mg capsule 30 mg PO QHS INSOMNIA 07/12/23 11/07/24 History fluoxetine 40 mg capsule 40 mg PO DAILY depression 01/28/24 11/08/24 History linaclotide 290 mcg capsule 290 mcg PO DAILY bowel function 01/28/24 07/12/24 History (Linzess) trospium 20 mg tablet 20 mg PO BID see 01/28/24 11/10/24 09:50 History ergocalciferol (vitamin D2) 1,250 1,250 mcg PO QWEEK Supplement 07/15/24 11/07/24 History mcg (50,000 unit) capsule albuterol sulfate 90 mcg/actuation 1 puff inhalation Q6H PRN 07/17/24 Unknown Rx aerosol inhaler shortness of breath or wheezing #6.7 grams cyanocobalamin (vitamin B-12) 1,000 mcg PO DAILY Supplement 08/09/24 11/10/24 09:45 History 1,000 mcg tablet (Vitamin B-12) cyclobenzaprine 5 mg tablet 5 mg PO TID PRN PRN muscle spasm 08/09/24 Unknown History ferrous sulfate 325 mg (65 mg 325 mg PO QDAY Supplement 08/09/24 11/09/24 13:25 History iron) tablet (iron) sennosides 8.6 mg tablet (Aminata-guy) 8.6 mg PO BID PRN PRN constipation 08/09/24 Unknown History tirzepatide 7.5 mg/0.5 mL 7.5 mg subcut QWEEK DM 11/07/24 Unknown History subcutaneous pen injector (Esmer) acetaminophen 325 mg tablet 1,000 mg (3.0769 x 325 mg) PO Q8H 11/10/24 11/10/24 03:00 Rx PRN PRN Pain 1-10 Or Fever>100.7 #0 tabs alprazolam 0.5 mg tablet 0.5 mg PO BID PRN anxiety #6 tabs 11/10/24 11/08/24 Rx Allergy/AdvReac Type Severity Reaction Status Date / Time house dust Allergy ITCHY EYES Verified 11/14/24 08:53 Penicillins Allergy Hives Verified 11/14/24 08:53 Seasonal Allergies: Uncoded Allergy ITCHY EYES Verified 11/14/24 08:53 Family History Father Colon cancer Mother Cancer pancreatic Surgical History History of tubal ligation History of appendectomy History of hysterectomy History of cholecystectomy Social History household members: none Smoking Status: Former smoker Tobacco: How many years used: 25 how long ago did patient quit smokin, 0.5ppd second hand exposure: Yes alcohol intake: former substance use type: does not use ROS Constitutional Constitutional: Denies fatigue, fever(s), poor appetite, weight gain or weight loss Gastrointestinal Gastrointestinal: Denies belching, bloating, change in bowel habits, change in stool character, chewing difficulty, coffee ground emesis, constipation, cramping, diarrhea, dyspepsia, dysphagia, early satiety, excessive flatus, fecal incontinence, heartburn, hematemesis, hematochezia, hemorrhoids, loose stools, melena, nausea, odynophagia, rectal bleeding, tenesmus, vomiting or weight changes Physical Exam Const alert, oriented x3, no apparent distress and healthy appearing General Appearance: cooperative GI normal to inspection, nondistended, normoactive bowel sounds, soft to palpation, non-tender and non-distended Percussion: normal to percussion Rectal Exam: deferred Lab / Micro Data 11/19/24 05:08 11/18/24 05:28 Labs: Laboratory Results - last 24 hr 11/19/24 05:08: Hgb 8.0 L, Hct 26.4 L Assessment & Plan Assessment/Plan (1) Anemia: QUALIFIERS: Anemia type: unspecified type Qualified Code(s): D64.9 - Anemia, unspecified PLAN: She will undergo an upper or lower endoscopy tomorrow to evaluate upper lower GI tract for signs of acute or chronic GI blood loss. She was explained alternatives, risk and benefits include not withstanding bleeding, infection, subsequent perforation, need for surgery . She will have an ASA of 3. Charges/Coding Visit Charges Inpatient E&M: 56712 SNF Init L2
[2024-11-19] MEDS: Furosemide 40 MG Tablet PO (18:23)
[2024-11-19 18:26] VITALS: BP 130/82
[2024-11-19] MEDS: Polyethylene Glycol 3350 BOWEL PREP PO (19:41)
--- NOTE | 2024-11-19 21:00 | PCM.DC.SUM ---
Providers Date of Admission: 11/10/24 Primary Care Physician: Corin Mariscal MD Consultations 11/10/24 19:50 Consult: General Surgery Routine Consulting Provider: Manjit Mcdowell Reason for Consult: Right gluteal inflamed sebaceous cyst. EMERGENT Consult: No Notified: Yes Date Notified: 11/10/24 Time Notified: 19:50 Method of Notification: Text 11/14/24 07:41 Consult: Gastroenterology Routine Consulting Provider: [facility] Reason for Consult: Progressive anemia, +hemoccult. EMERGENT Consult: No Notified: Yes Date Notified: 11/14/24 Time Notified: 11:28 Method of Notification: Answering Service Reason For Visit: alexia/hypokalemia Diagnosis Discharge Diagnosis (1) Anemia: Status: Chronic Code(s): D64.9 - Anemia, unspecified Qualifiers: Anemia type: unspecified type Qualified Code(s): D64.9 - Anemia, unspecified Plan 63 year old female with below past medical history hospitalized for multiple falls, encephalopathy 2/2 acute kidney injury 2/2 dehydration, complicated by right buttock inflamed sebaceous cyst, admitted to TCU with debility, here for rehabilitation, strengthening, prior to discharge home alone. Debility - PT/OT. Pain - Tylenol 1000mg q6 prn pain (1-3), Oxycodone 5mg q4 prn pain (4-10). Bowel - Linzess 290mcg daily (Home supply), Senna/colace 1 tablet bid prn, Magnesuim citrate 300mL daily prn, first dose now, no BM for 9 days. Adult immunization - Administer pneumonia vaccine, covid vaccine, flu vaccine as appropriate. DVT prophylaxis - Hold, may need surgery. Right gluteal sebaceous cyst - Consult General Surgery for incision and drainage. COPD - Fluticasone/Salmeterol 1 puff Q12, Albuterol 2.5mg neb Q6h prn. Hyperlipidemia - Atorvastatin 80mg qhs. HTN - Coreg 3.125mg bidcm. Vitamin B12 deficiency - B12 1000mcg daily. Muscle spasm - Flexeril 5mg tid prn. Vitamin D deficiency - D 1.25mg qweek Iron deficiency anemia - Ferrous sulfate 325mg daily. Insomnia - Melatonin 10mg qhs. GERD - Pantoprazole 40mg daily. Overactive bladder - Tolterodiine 2mg daily. The following psychotropic medication was present on admission: Xanax 0.5mg bid prn. Psychotropic medication therapy is indicated for a diagnosis of: Anxiety. Based on my clinical evaluation, continuation of the medication is necessary at this time. Gradual dose reduction plan (select one): ____ GDR will be attempted. Will monitor patient symptoms and behaviors in response to GDR. _x___ GRD contraindicated. 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 The following psychotropic medication was present on admission: Fluoxetine 40mg daily. Psychotropic medication therapy is indicated for a diagnosis of: Depression. Based on my clinical evaluation, continuation of the medication is necessary at this time. Gradual dose reduction plan (select one): ____ GDR will be attempted. Will monitor patient symptoms and behaviors in response to GDR. __x__ GRD contraindicated. 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 The following psychotropic medication was present on admission: Temazepam 30mg qhs. Psychotropic medication therapy is indicated for a diagnosis of: Insomnia Based on my clinical evaluation, continuation of the medication is necessary at this time. Gradual dose reduction plan (select one): ____ GDR will be attempted. Will monitor patient symptoms and behaviors in response to GDR. __x__ GRD contraindicated. Reason contraindicated: stable chronic fdc use. Medications at Discharge Home Medications pantoprazole 40 mg tablet,delayed release 40 mg PO DAILY ACID REFLUX 12/09/18 rosuvastatin 40 mg tablet 40 mg PO QHS CHOLESTEROL 07/19/21 melatonin 10 mg tablet 10 mg PO QHS SLEEP 07/16/22 carvedilol 3.125 mg tablet 3.125 mg PO BID HEART #60 tabs 07/20/22 mometasone-formoterol HFA 100 mcg-5 mcg/actuation aerosol inhaler (Dulera) 2 puff inhalation BID SHORTNESS OF BREATH/WHEEZING #13 grams 03/05/23 fluoxetine 40 mg capsule 40 mg PO DAILY depression 01/28/24 linaclotide 290 mcg capsule (Linzess) 290 mcg PO DAILY bowel function 01/28/24 trospium 20 mg tablet 20 mg PO BID see 01/28/24 ergocalciferol (vitamin D2) 1,250 mcg (50,000 unit) capsule 1,250 mcg PO QWEEK Supplement 07/15/24 albuterol sulfate 90 mcg/actuation aerosol inhaler 1 puff inhalation Q6H PRN shortness of breath or wheezing #6.7 grams 07/17/24 cyanocobalamin (vitamin B-12) 1,000 mcg tablet (Vitamin B-12) 1,000 mcg PO DAILY Supplement 08/09/24 cyclobenzaprine 5 mg tablet 5 mg PO TID PRN PRN muscle spasm 08/09/24 ferrous sulfate 325 mg (65 mg iron) tablet (iron) 325 mg PO QDAY Supplement 08/09/24 sennosides 8.6 mg tablet (Aminata-guy) 8.6 mg PO BID PRN PRN constipation 08/09/24 alprazolam 0.5 mg tablet 0.5 mg PO BID PRN anxiety #6 tabs 11/10/24 acetaminophen 500 mg tablet 1,000 mg (2 x 500 mg) PO Q6H PRN PRN Pain Score 1-10 #0 tabs 11/19/24 furosemide 40 mg tablet 40 mg PO DAILY 5 days #5 tabs 11/19/24 oxycodone 5 mg tablet 2.5 mg (1/2 x 5 mg) PO Q6H PRN PRN Pain Score 1-10 Or Pre Pt/Ot 7 days #14 tabs 11/19/24 potassium chloride 20 mEq tablet,extended release(part/cryst) 20 meq PO DAILYCM 5 days #5 tabs 11/19/24 temazepam 15 mg capsule 15 mg PO QHS 30 days #30 caps 11/19/24 Hospital Course Operations None Procedures None Summary of Care Provided Minutes Spent on Discharge: 35 Hospital Course: 63 year old female with below past medical history hospitalized for multiple falls, encephalopathy 2/2 acute kidney injury 2/2 dehydration, complicated by right buttock inflamed sebaceous cyst, admitted to TCU with debility, here for rehabilitation, strengthening, prior to discharge home alone. Progressive anemia, +hemoccult, Friend performing colonoscopy 11/20/2024. Discharge home alone 11/20/2024, [facility] PT/OT. Physical Exam Const alert General Appearance: cooperative HEENT normocephalic Eyes PERRL and EOMs intact bilaterally Neck supple, no JVD and no carotid bruits Resp normal respiratory effort, normal air movement and clear to auscultation bilaterally Cardio regular rate and regular rhythm GI normal to inspection, nondistended, normoactive bowel sounds, non-tender and non-distended Extremity normal capillary refill General Extremity: Negative for edema Skin no rashes or lesions noted General Skin Exam: no breakdown Psych affect normal Appearance: appropriate Weight / BMI Weight Weight: 118.796 kg Body Mass Index (BMI) 41.0 ABG / Lab / Microbiology Data 11/19/24 05:08 11/18/24 05:28 Laboratory: Laboratory Results - last 24 hr 11/19/24 05:08: Hgb 8.0 L, Hct 26.4 L Microbiology: Microbiology 11/13/24 09:11 Urine, Catheterized Urine Culture - Final Culture exhibits no growth. 11/13/24 20:55 Stool Stool Occult Blood (MADELEINE) - Final Occult Blood Positive D/C Instructions Discharge Diet: No restrictions Discharge Activity: Return to Normal Activity, May Shower and Use Walker Weight Bearing Status: Weight bearing as tolerated Call your doctor if you observe: Fever of 101 or Higher, Inability to urinate, Inability to have a bowel movement, Shortness of breath, Dizziness, Fainting spells, Swelling in the ankles, Chest pain and Uncontrolled pain DC O2, CPAP, BIPAP Needs Home O2 Discharge instructions: Yes Type of respiratory needs?: Oxygen (2 liters) Oxygen frequency: Continuous Continuous oxygen liters per minute: 2 DC home with Oxygen: Yes Home O2 MD Review: I have reviewed the oxygen testing, and the patient qualifies for home oxygen equipment and portability. The patient is mobile in the home and the community. Additional Instructions: Discharge home alone 11/20/2024, [facility] PT/OT. Meaningful Use Info Meaningful Use Meaningful Use Diagnoses (Choose all that apply): None applicable Ischemic Stroke Statin Dosing Therapy Reference: STATIN DOSE THERAPY REFERENCE: * Patients > 75 years receive moderate or high dose statin therapy. * Patients 75 years or YOUNGER should receive HIGH intensity statin dose unless contraindicated. You will be required to document reason for non-treatment if statin daily dose does not meet guidelines. HIGH DOSE STATIN THERAPY DAILY Atorvastatin > than or = to 40 mg Rosuvastatin > than or = to 20 mg Amlodipine + Atorvastatin > than or = to 2.5/40 mg Ezetimibe + Simvastatin 10/80 mg Simvastatin 80mg Discharge Plan Admission Admit Date/Time: 11/10/24 16:07 Primary Reason for Your Visit: Debility. Attending Provider: Addison Romero Chi Primary Care Provider: Corin Mariscal Consulting Providers: Manjit Mcdowell Instructions Additional Instructions / Restrictions: Discharge home alone 11/20/2024, [facility] PT/OT. Discharge Orders/Prescriptions Prescriptions: New acetaminophen 500 mg Tablet 1,000 mg PO Q6H PRN PRN (Reason: Pain Score 1-10) Qty: 0 0RF furosemide 40 mg Tablet 40 mg PO DAILY 5 Days Qty: 5 0RF oxycodone 5 mg Tablet 2.5 mg PO Q6H PRN PRN (Reason: Pain Score 1-10 Or Pre Pt/Ot) 7 Days Qty: 14 0RF potassium chloride 20 mEq Tablet,Er Particles/Crystals 20 meq PO DAILYCM 5 Days Qty: 5 0RF temazepam 15 mg Capsule 15 mg PO QHS 30 Days Qty: 30 0RF Continued Dulera 100-5 mcg/actuation HFA aerosol inhaler 2 puff inhalation BID Qty: 13 3RF pantoprazole 40 MG tablet 40 mg PO DAILY rosuvastatin 40 mg Tablet 40 mg PO QHS melatonin 10 mg Tablet 10 mg PO QHS carvedilol 3.125 mg Tablet 3.125 mg PO BID Qty: 60 0RF cyclobenzaprine 5 mg tablet 5 mg PO TID PRN PRN (Reason: muscle spasm) sennosides [Aminata-guy] 8.6 mg tablet 8.6 mg PO BID PRN PRN (Reason: constipation) ferrous sulfate [iron] 325 mg (65 mg iron) tablet 325 mg PO QDAY cyanocobalamin (vitamin B-12) [Vitamin B-12] 1,000 mcg tablet 1,000 mcg PO DAILY alprazolam 0.5 mg tablet 0.5 mg PO BID PRN (Reason: anxiety) Qty: 6 0RF fluoxetine 40 mg capsule 40 mg PO DAILY Linzess 290 mcg capsule 290 mcg PO DAILY trospium 20 mg tablet 20 mg PO BID ergocalciferol (vitamin D2) 1,250 mcg (50,000 unit) capsule 1,250 mcg PO QWEEK albuterol sulfate 90 mcg/actuation HFA aerosol inhaler 1 puff inhalation Q6H PRN (Reason: shortness of breath or wheezing) Qty: 6.7 0RF Discontinued temazepam 30 mg capsule 30 mg PO QHS Mounjaro 7.5 mg/0.5 mL pen injector 7.5 mg subcut QWEEK acetaminophen 325 mg Tablet 1,000 mg PO Q8H PRN PRN (Reason: Pain 1-10 Or Fever>100.7) Qty: 0 0RF Referrals / Follow Up: Tad Dutta MD [Med Staff - Active Staff] - Within 1 Month (Right buttock sebaceous cyst.) Addison Romero Chi, MD [Med Staff - Active Staff] - Within 1 Week (Transition Care Management visit. Patient asked to switch to me.) Disposition Disposition (needs filled in before D/C Order can be placed): Home Health Service
[2024-11-19] MEDS: Temazepam 15 MG Capsule PO (21:31)
[2024-11-19] MEDS: Atorvastatin Calcium 80 MG Tablet PO (21:32)
[2024-11-19] MEDS: MELATONIN 10 MG TABLET PO (21:32)
[2024-11-20] MEDS: Acetaminophen 500 MG Tablet 1000 MG PO ×2 (03:25→10:07)
[2024-11-20] MEDS: oxyCODONE 5 MG Tablet 2.5 MG PO ×2 (03:25→10:07)
[2024-11-20 06:53] VITALS: RESP 16
[2024-11-20 08:20] VITALS: BP 124/75; PULSE 85; RESP 17; TEMP 36.5; O2SAT 98
[2024-11-20] MEDS: Carvedilol 3.125 MG TABLET PO (08:24)
--- NOTE | 2024-11-20 08:57 | CASEMGMT ---
Social Work [facility] is able to accept pt for PT/OT with SOC on Sunday. Pt notified and agreeable. No further dc needs. Discharge plan: Home alone today 11/20 with [facility] PT/OT BERNIE Jimenez
--- NOTE | 2024-11-20 12:02 | MDS.RN ---
Information for the MDS was obtained from review of the clinical record, interview of resident, staff, and direct observation of resident?s care.
== END 2024-11-20 14:05 | disposition home health service (06) | DRG 683 ==
PROVIDERS: Admitting Provider Family Medicine Geriatric Medicine; PCP Family Medicine; Referring Provider Family Medicine Geriatric Medicine; Visit Provider Family Medicine Geriatric Medicine
DX: N17.9 Acute kidney failure, unspecified (principal); Z68.41 Body mass index [BMI] 40.0-44.9, adult; E11.65 Type 2 diabetes mellitus with hyperglycemia; D50.9 Iron deficiency anemia, unspecified; E11.22 Type 2 diabetes mellitus with diabetic chronic kidney disease; E53.8 Deficiency of other specified B group vitamins; Z99.81 Dependence on supplemental oxygen; J44.9 Chronic obstructive pulmonary disease, unspecified; I12.9 Hypertensive chronic kidney disease with stage 1 through stage 4 chronic kidney disease, or unspecified chronic kidney disease; F32.A Depression, unspecified; F10.10 Alcohol abuse, uncomplicated; K56.41 Fecal impaction; E66.01 Morbid (severe) obesity due to excess calories; E55.9 Vitamin D deficiency, unspecified; L72.3 Sebaceous cyst; N18.1 Chronic kidney disease, stage 1; F41.9 Anxiety disorder, unspecified; K21.9 Gastro-esophageal reflux disease without esophagitis; E78.5 Hyperlipidemia, unspecified; Z79.51 Long term (current) use of inhaled steroids; Z87.891 Personal history of nicotine dependence; Z79.85 Long-term (current) use of injectable non-insulin antidiabetic drugs; G47.00 Insomnia, unspecified; N32.81 Overactive bladder; G89.29 Other chronic pain; Z79.899 Other long term (current) drug therapy; R29.6 Repeated falls
CPT/HCPCS: 36415; 36430; 74018; 76882; 80048; 81001; 82274; 82306; 85014; 85018; 85025; 86850; 86900; 86901; 87086; 97110; 97116; 97162; 97166; 97530; 97535; 97802; P9016; A4216; J2405

== ENCOUNTER 2024-11-20 10:47 | Day surgery (SDC) | payer MEDICARE, MEDICAID, SELFPAY ==
[2024-11-20] VITALS (9 sets, daily range): BP systolic 99–150; BP diastolic 57–98; PULSE 79–84; RESP 16–18; TEMP 36.6–36.9; O2SAT 98–100; BMI 40.5
--- NOTE | 2024-11-20 11:07 | HP.PCM_ITS ---
HPI - General General Date of Admission: 12/03/24 Date of Service: 11/20/24 Chief Complaint: Anemia HPI Narrative 63 F who presented to the emergency department at [facility] on 11/07/2024 with a chief complaint of falls.d patient has had multiple falls in the last several days. She reports at least 4 days and hit her head 1 time. On presentation she was complaining of some low back and buttock pain. She also reported that she not been eating or drinking much recently. Sunday of last week she had 4 teeth extracted and then ended up with dry socket and one of them so her p.o. intake has been drastically reduced due to mouth pain. She had been on clindamycin and had been taking it without missing any doses. She lives alone but does have family in the area. She is currently in the TCU rehabbing and scheduled to go home. I was asked to see her after her hemoglobin decreased all way down to 6.5 and she was transfused units of packed red blood cells and going up back up to 8.5 and currently is down to 8.0. Her stools were noted to be positive for blood. [facility] Medical History Chronic prescription benzodiazepine use Diabetes Osteoporosis Kidney stones Irregular heart beat Chest pain Normocytic anemia Diabetes Chronic pain CPAP (continuous positive airway pressure) dependence Contusion of left hip Contusion of rib on right side Contusion of left shoulder Contusion of scalp Closed fracture of fibula, proximal, left Pyuria Substance abuse Kidney disease Former smoker BiPAP (biphasic positive airway pressure) dependence Sleep apnea On home oxygen therapy Hypertension Dementia Alcohol withdrawal Alcohol abuse Admitted to alcohol detoxification center Medical marijuana use Frequent falls DVT (deep venous thrombosis) Right ventricular systolic dysfunction Right bundle branch block (RBBB) Essential (primary) hypertension Sepsis Abdominal pain Migraine Chronic renal insufficiency, stage I Pancytopenia Respiratory tract infection due to COVID-19 virus Endocarditis Gastritis Restrictive lung disease Colitis Osteoarthritis Chronic renal failure Depression GENNARO (obstructive sleep apnea) Pneumonia Bronchitis Asthma COPD (chronic obstructive pulmonary disease) Morbid obesity HLD (hyperlipidemia) Bronchiectasis Idiopathic right ventricular dilation Thrombocytopenia Leukopenia Abnormal liver CT Anemia Anxiety Respiratory insufficiency Respiratory failure with hypoxia Colitis with rectal bleeding History of umbilical hernia History of diarrhea Arthritis Gastroesophageal reflux disease Home Medications ?Medication ?Instructions ?Recorded ?Last Taken ?Type pantoprazole 40 mg tablet,delayed 40 mg PO DAILY ACID REFLUX 12/09/18 11/10/24 09:50 History release rosuvastatin 40 mg tablet 40 mg PO QHS CHOLESTEROL 11/09/24 21:20 History melatonin 10 mg tablet 10 mg PO QHS SLEEP 07/16/22 11/09/24 21:05 History carvedilol 3.125 mg tablet 3.125 mg PO BID HEART #60 tabs 07/20/22 07/12/24 Rx mometasone-formoterol HFA 100 2 puff inhalation BID SH ORTNESS OF 03/05/23 11/10/24 07:05 Rx mcg-5 mcg/actuation aerosol BREATH/WHEEZING #13 grams inhaler (Dulera) fluoxetine 40 mg capsule 40 mg PO DAILY depression 11/08/24 History linaclotide 290 mcg capsule 290 mcg PO DAILY bowel fun ction 01/28/24 07/12/24 History (Linzess) trospium 20 mg tablet 20 mg PO BID see 01/28/24 11/10/24 09:50 History ergocalciferol (vitamin D2) 1,250 1,250 mcg PO QWEEK S upplement 07/15/24 11/07/24 History mcg (50,000 unit) capsule albuterol sulfate 90 mcg/actuation 1 puff inhalation Q 6H PRN 07/17/24 Unknown Rx aerosol inhaler shortness of breath or wheez ing #6.7 grams cyanocobalamin (vitamin B-12) 1,000 mcg PO DAILY Suppl ement 08/09/24 11/10/24 09:45 History 1,000 mcg tablet (Vitamin B-12) cyclobenzaprine 5 mg tablet 5 mg PO TID PRN PRN muscle spasm 08/09/24 Unknown History ferrous sulfate 325 mg (65 mg 325 mg PO QDAY Supplemen t 08/09/24 11/09/24 13:25 History iron) tablet (iron) sennosides 8.6 mg tablet (Aminata-guy) 8.6 mg PO BID PRN PRN constipation 08/09/24 Unknown History alprazolam 0.5 mg tablet 0.5 mg PO BID PRN anxiety #6 tabs 11/10/24 11/08/24 Rx acetaminophen 500 mg tablet 1,000 mg (2 x 500 mg) PO Q 6H PRN 11/19/24 Unknown Rx PRN Pain Score 1-10 #0 tabs furosemide 40 mg tablet 40 mg PO DAILY 5 days #5 tab s 11/19/24 Unknown Rx oxycodone 5 mg tablet 2.5 mg (1/2 x 5 mg) PO Q6H P RN PRN 11/19/24 Unknown Rx Pain Score 1-10 Or Pre Pt/Ot 7 days #14 tabs potassium chloride 20 mEq 20 meq PO DAILYCM 5 days #5 tabs 11/19/24 Unknown Rx tablet,extended release(part/cryst) temazepam 15 mg capsule 15 mg PO QHS 30 days #30 cap s 11/19/24 Unknown Rx Allergy/AdvReac Type Severity Reaction Status Date / Time house dust Allergy ITCHY EYES Verified 11/20/24 11:02 Penicillins Allergy Hives Verified 11/20/24 11:02 Seasonal Allergies: Uncoded Allergy ITCHY EYES Verified 11/20/24 11:02 Family History Father Colon cancer Mother Cancer pancreatic Surgical History History of tubal ligation History of appendectomy History of hysterectomy History of cholecystectomy Social History household members: none Smoking Status: Former smoker Tobacco: How many years used: 25 how long ago did patient quit smokin, 0.5ppd second hand exposure: Yes alcohol intake: former substance use type: does not use ROS Constitutional Constitutional: Denies fatigue, fever(s), poor appetite, weight gain or weight loss Gastrointestinal Gastrointestinal: Denies belching, bloating, change in bowel habits, change in stool character, chewing difficulty, coffee ground emesis, constipation, cramping, diarrhea, dyspepsia, dysphagia, early satiety, excessive flatus, fecal incontinence, heartburn, hematemesis, hematochezia, hemorrhoids, loose stools, melena, nausea, odynophagia, rectal bleeding, tenesmus, vomiting or weight changes Physical Exam Const alert, oriented x3, no apparent distress and healthy appearing General Appearance: cooperative GI normal to inspection, nondistended, normoactive bowel sounds, soft to palpation, non-tender and non-distended Percussion: normal to percussion Rectal Exam: deferred Assessment & Plan Assessment/Plan (1) Gastroesophageal reflux disease: (2) Anemia: QUALIFIERS: Anemia type: unspecified type Qualified Code(s): D64.9 - Anemia, unspecified PLAN: 11/19/24 05:08 11/18/24 05:28 Labs: Laboratory Results - last 24 hr 11/19/24 05:08: Hgb 8.0 L, Hct 26.4 L Assessment & Plan Assessment/Plan (1) Anemia: QUALIFIERS: Anemia type: unspecified type Qualified Code(s): D64.9 - Anemia, unspecified PLAN: She will undergo an upper or lower endoscopy tomorrow to evaluate upper lower GI tract for signs of acute or chronic GI blood loss. She was explained alternatives, risk and benefits include not withstanding bleeding, infection, subsequent perforation, need for surgery . She will have an ASA of 3.
[2024-11-20] MEDS: Lactated Ringers 1,000 ML 15 ML IV (11:29)
--- NOTE | 2024-11-20 11:33 | PCM.PRE.AN2 ---
ASA Classification* ASA Classification ASA Classification: 4 (Recent admission 2/2 falls. has recent PEDRO, NAFLD, GENNARO on BiPAP, HTN, Dementia, hx alcohol abuse, THC use, CKD, COPD, GERD, anemia, paralyzed diaphragm, uses oyxgen at home continuously) Assessment & Plan Anesthesia* Anesthesia Assessment Anesthesia Assessment: Discussed sedation and/or anesthesia options, risks, benefits, and alternatives with patient/parents/legal guardian/POA. Questions invited. The patient/parents/legal guardian/POA seems to understand and agrees to proceed with anesthesia plan. Reviewed the physical assessment, medical history, allergy history and patient home medications list prior to surgery/procedure/anesthetic and documented any changes. Performed airway and anesthesia risk assessments. 63 F who presented to the emergency department at [facility] on 11/07/2024 with a chief complaint of falls.d patient has had multiple falls in the last several days. She reports at least 4 days and hit her head 1 time. On presentation she was complaining of some low back and buttock pain. She also reported that she not been eating or drinking much recently. Sunday of last week she had 4 teeth extracted and then ended up with dry socket and one of them so her p.o. intake has been drastically reduced due to mouth pain. She had been on clindamycin and had been taking it without missing any doses. She lives alone but does have family in the area. She is currently in the TCU rehabbing and scheduled to go home. her hemoglobin decreased all way down to 6.5 and she was transfused units of packed red blood cells and going up back up to 8.5 and currently is down to 8.0. Her stools were noted to be positive for blood. Anesthesia Type Anesthesia Type: MAC History Source History Obtained from:: Patient and Chart Anesthesia Focused Assessment* Temperature: 98 F Pulse Rate: 79 Blood Pressure: 150/82 Respiratory Rate: 16 Pulse Ox: 100 Oxygen Flow Rate (L/min): 2 Airway Assessment Mouth opens: >3 cm Mallampati Score: III Teeth Condition: Intact and Missing Neck Range of motion (ROM): Full ROM Labs Anesthesia Preop lab: CBC WBC 2.7 K/mm3 (4.4-11.0) L 11/18/24 05:28 11/18/24 RBC 2.86 M/mm3 (4.2-5.4) L 11/18/24 05:28 11/18/24 Hgb 8.0 g/dL (12.0-15.0) L 11/19/24 05:08 11/19/24 Hct 26.4 % (37-47) L 11/19/24 05:08 11/19/24 Plt Count 127 K/mm3 (150-450) L 11/18/24 05:28 11/18/24 CHEMISTRY Potassium 3.4 mmol/L (3.3-5.1) 11/18/24 05:28 11/18/24 Sodium 144 mmol/L (133-145) 11/18/24 05:28 11/18/24 Magnesium 1.5 mg/dL (1.5-2.2) 11/09/24 07:04 11/09/24 Phosphorus 4.3 mg/dL (2.7-4.5) 11/09/24 07:04 11/09/24 BUN 24 mg/dL (4-19) H 11/18/24 05:28 11/18/24 Creatinine 1.60 mg/dL (0.70-1.20) H 11/18/24 05:28 11/18/24 Glucose 108 mg/dL (70-99) H 11/18/24 05:28 11/18/24 POC Glucose 94 mg/dL (74-106) 11/10/24 12:28 11/10/24 TSH 0.474 uIU/mL (0.358-3.740) 07/15/24 16:51 07/15/24 COAG PT 12.5 SECONDS (11.7-14.9) 11/07/24 11:20 11/07/24 Pre-Assessment Diagnosis/Proposed Procedure Planned Operative Procedure(s): colonoscopy, esophagogastroduodenoscopy Anesthesia History Anesthesia History - flotation tender: Anesthesia History - flotation tender Hx Hospitalization Yes 11/20/24 11:08 Any Problems With Anesthesia No 11/20/24 11:08 Cholinesterase deficiency No 11/20/24 11:08 You/Your Family Experience No 11/20/24 11:08 fever (hyperthermia) with Relationship Recent Exposure to Contagious No 07/19/21 00:59 Disease Does patient have nerve No 11/20/24 11:08 stimulator Patient instructed to have device shut off --Does patient have Pacemaker No 11/20/24 11:24 or ICD? When Was Last Pacemaker Check QUESTION #4 FULL TEXT: You/Your Family Experience fever (hyperthermia) with Anesthesia Last Oral Intake Last Oral intake: Last Oral Intake NPO since 10:00 11/20/24 11:24 Meds taken in AM with sips of Yes 11/20/24 11:24 water? Meds patient instructed to take am of surgery PONV PONV - flotation tender: PONV - flotation tender Female Yes 11/20/24 11:08 HX of Motion Sickness No 11/20/24 11:08 HX of N/V After Surgery No 11/20/24 11:08 Non-Smoker Yes 11/20/24 11:08 Duration of Surgery greater No 11/20/24 11:08 than 60 minutes Number of Risk Factors 2 11/20/24 11:08 PONV Score Moderate Risk 11/20/24 11:08 Height & Weight Height & Weight: Anesthesia: Height & Weight Height 5 ft 7 in 11/20/24 11:24 Weight: 117.48 kg 11/20/24 11:24 Body Mass Index (BMI) 40.5 11/20/24 11:24 Respiratory Assessment Respiratory Assessment - flotation tender: Respiratory Tract Infection Hx - flotation tender Hx Respiratory Tract Infection No 11/20/24 11:08 STOP Sleep Apnea STOP Sleep Apnea - flotation tender: STOP Sleep Apnea - flotation tender Hx Hypertension Yes 11/20/24 11:08 Hx Sleep Apnea Yes 11/20/24 11:08 CPAP No 11/20/24 11:08 BIPAP Yes 11/20/24 11:08 Do you snore loudly (louder than talking or can be heard Do you often feel tired/ fatigued/ sleepy during daytime? Has anyone observed you stop breathing during sleep? STOP Results Positive 11/20/24 11:08 QUESTION #5 FULL TEXT : Do you snore loudly (louder than talking or can be heard through closed doors)? 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 Specify any problems Hx of Preganancy in last 3 No 11/20/24 11:08 Months Nurse Filling Out Transfusion CPARSONS 11/20/24 11:08 & Questions: Date: 11/20/24 11/20/24 11:08 Time: 11:22 11/20/24 11:08 Patient unable to answer at this time (ie. confused, unrespo /Reproduction History /Reproductive History - flotation tender: /Reproductive Hx- flotation tender Hx Now No 11/20/24 11:08 Gestational Age (in weeks): EDC: Hx Hx Para Hx Section SAB No 11/20/24 11:08 Active Medications Active Medications: Current Medications Generic Name Dose Route Start Last Admin Trade Name Freq PRN Reason Stop Dose Admin Lactated Ringer's 1,000 mls @ 15 mls/hr 11/20/24 11:15 11/20/24 11:29 IV 15 mls/hr .Q48H NINA Administration PFSH Medical History Chronic prescription benzodiazepine use Diabetes Osteoporosis Kidney stones Irregular heart beat Chest pain Normocytic anemia Diabetes Chronic pain CPAP (continuous positive airway pressure) dependence Contusion of left hip Contusion of rib on right side Contusion of left shoulder Contusion of scalp Closed fracture of fibula, proximal, left Pyuria Substance abuse Kidney disease Former smoker BiPAP (biphasic positive airway pressure) dependence Sleep apnea On home oxygen therapy Hypertension Dementia Alcohol withdrawal Alcohol abuse Admitted to alcohol detoxification center Medical marijuana use Frequent falls DVT (deep venous thrombosis) Right ventricular systolic dysfunction Right bundle branch block (RBBB) Essential (primary) hypertension Sepsis Abdominal pain Migraine Chronic renal insufficiency, stage I Pancytopenia Respiratory tract infection due to COVID-19 virus Endocarditis Gastritis Restrictive lung disease Colitis Osteoarthritis Chronic renal failure Depression GENNARO (obstructive sleep apnea) Pneumonia Bronchitis Asthma COPD (chronic obstructive pulmonary disease) Morbid obesity HLD (hyperlipidemia) Bronchiectasis Idiopathic right ventricular dilation Thrombocytopenia Leukopenia Abnormal liver CT Anemia Anxiety Respiratory insufficiency Respiratory failure with hypoxia Colitis with rectal bleeding History of umbilical hernia History of diarrhea Arthritis Gastroesophageal reflux disease Home Medications ?Medication ?Instructions ?Recorded ?Last Taken ?Type pantoprazole 40 mg tablet,delayed 40 mg PO DAILY ACID REFLUX 12/09/18 11/10/24 09:50 History release rosuvastatin 40 mg tablet 40 mg PO QHS CHOLESTEROL 07/19/21 11/09/24 21:20 History melatonin 10 mg tablet 10 mg PO QHS SLEEP 07/16/22 11/09/24 21:05 History carvedilol 3.125 mg tablet 3.125 mg PO BID HEART #60 tabs 07/20/22 07/12/24 Rx mometasone-formoterol HFA 100 2 puff inhalation BID SHORTNESS OF 03/05/23 11/10/24 07:05 Rx mcg-5 mcg/actuation aerosol BREATH/WHEEZING #13 grams inhaler (Dulera) fluoxetine 40 mg capsule 40 mg PO DAILY depression 01/28/24 11/08/24 History linaclotide 290 mcg capsule 290 mcg PO DAILY bowel function 01/28/24 07/12/24 History (Linzess) trospium 20 mg tablet 20 mg PO BID see 01/28/24 11/10/24 09:50 History ergocalciferol (vitamin D2) 1,250 1,250 mcg PO QWEEK Supplement 07/15/24 11/07/24 History mcg (50,000 unit) capsule albuterol sulfate 90 mcg/actuation 1 puff inhalation Q6H PRN 07/17/24 Unknown Rx aerosol inhaler shortness of breath or wheezing #6.7 grams cyanocobalamin (vitamin B-12) 1,000 mcg PO DAILY Supplement 08/09/24 11/10/24 09:45 History 1,000 mcg tablet (Vitamin B-12) cyclobenzaprine 5 mg tablet 5 mg PO TID PRN PRN muscle spasm 08/09/24 Unknown History ferrous sulfate 325 mg (65 mg 325 mg PO QDAY Supplement 08/09/24 11/09/24 13:25 History iron) tablet (iron) sennosides 8.6 mg tablet (Aminata-guy) 8.6 mg PO BID PRN PRN constipation 08/09/24 Unknown History alprazolam 0.5 mg tablet 0.5 mg PO BID PRN anxiety #6 tabs 11/10/24 11/08/24 Rx acetaminophen 500 mg tablet 1,000 mg (2 x 500 mg) PO Q6H PRN 11/19/24 Unknown Rx PRN Pain Score 1-10 #0 tabs furosemide 40 mg tablet 40 mg PO DAILY 5 days #5 tabs 11/19/24 Unknown Rx oxycodone 5 mg tablet 2.5 mg (1/2 x 5 mg) PO Q6H PRN PRN 11/19/24 Unknown Rx Pain Score 1-10 Or Pre Pt/Ot 7 days #14 tabs potassium chloride 20 mEq 20 meq PO DAILYCM 5 days #5 tabs 11/19/24 Unknown Rx tablet,extended release(part/cryst) temazepam 15 mg capsule 15 mg PO QHS 30 days #30 caps 11/19/24 Unknown Rx Allergy/AdvReac Type Severity Reaction Status Date / Time house dust Allergy ITCHY EYES Verified 11/20/24 11:02 Penicillins Allergy Hives Verified 11/20/24 11:02 Seasonal Allergies: Uncoded Allergy ITCHY EYES Verified 11/20/24 11:02 Family History Father Colon cancer Mother Cancer pancreatic Surgical History History of tubal ligation History of appendectomy History of hysterectomy History of cholecystectomy Social History household members: none Smoking Status: Former smoker Tobacco: How many years used: 25 how long ago did patient quit smokin, 0.5ppd second hand exposure: Yes alcohol intake: former substance use type: does not use Review of Systems (Anesthesia) ROS Narrative System reviewed and no additional complaints, except as documented.
[2024-11-20 11:50] LABS: Bedside Glucose 96 mg/dL (74-106)
--- NOTE | 2024-11-20 12:00 | EGD_PTH ---
PATIENT: ALFIE HOGAN LOC: EN U#:[id number] AGE/SX: 63/F ROOM: RE11/20/[address]: Dr. Johnathon Hobson DO : 1960 BED: DIS: 11/20/2024 SPEC #: [id number] RECD: 11/20/24 13:41 STATUS: EMILY REStanley #: [id number] ELINA: 11/20/24 12:[address]: Johnathon Hobson DEPT: SURGICAL PATHOLOGY RECD BY: Pacheco Pruett ENTERED: 11/20/24 14:31 SP TYPE: EGD BIOPSY OT DR: Corin Mariscal MD Tissues: A - Gastric mucous membrane B - Cecum, NOS Procedures: Immunohistochemical Stains Surgery Specimen Level IV HEADER OPERATION: Colonoscopy with biopsy, EGD with biopsy PRE-OP DIAGNOSIS: Gastroesophageal reflux disease, anemia TISSUE SUBMITTED: A- Gastric body biopsy, B- Cecal polyp biopsy MICROSCOPIC DIAGNOSIS A. Gastric body, biopsy: - Oxyntic mucosa with mild foveolar hyperplasia and focal mils acute inflammation. - IHC for H pylori is pending and will be reported in an addendum. B. Colon, cecum, polyp, biopsy: - Tubular adenoma. MICROSCOPIC DESCRIPTION Slides are reviewed. GROSS DESCRIPTION A. Received in fixative is one container labeled with the patient's name and designated Gastric body biopsy. The specimen consists of two irregular fragments of light rose soft tissue that in aggregate measure 0.4 and 0.7 cm. The specimen is totally submitted in one cassette. B. Received in fixative is one container labeled with the patient's name and designated Cecal polyp biopsy. The specimen consists of multiple irregular fragments of light rose soft tissue that in aggregate measure <0.1 to 0.3 cm with vegetable material. The specimen is totally submitted in one cassette. [place] 11/20/2024 CPT:65305z5,19989 ADDENDUM ADDENDUM ADDENDUM ADDENDUM ADDENDUM ADDENDUM ADDENDUM ADDENDUM ADDENDUM ADDENDUM 12/15/2024 15:28 ADDENDUM 12/15/2024 15:28 ADDENDUM 12/15/2024 15:28 ADDENDUM 12/15/2024 15:28 ADDENDUM 12/15/2024 15:28 A. This addendum is to report the IHC stain on part A (gastric biopsy): The IHC is negative for H pylori organisms. All matched controls reacted appropriately. These tests were developed and their performance characteristics determined by [facility]. They may not have been cleared or approved by the [place].S. Food and Drug Administration. The FDA has determined that such clearance or approval is not necessary.? The above immunohistochemical/dualISH?markers are reviewed by the Pathologist.
--- NOTE | 2024-11-20 12:26 | OP.CCLET_ITS ---
11/20/2024 Corin Mariscal Md Re : Upper GI endoscopy procedure for Shanda Felder Dear [place] This procedure was performed on November. My impressions and recommendations are as follows: Impressions : - Esophageal plaques were found, consistent with candidiasis. - Non-bleeding gastric ulcer with no stigmata of bleeding. Biopsied. - No gross lesions in the entire examined duodenum. Recommendations : - Continue present medications. My findings are described in the full procedure note, which is enclosed. If I can be of further assistance, please feel free to contact me at . Sincerely, Johnathon Hobson, 11/20/2024 12:25:50 PM This report has been signed electronically.
--- NOTE | 2024-11-20 12:26 | OP.EGD_ITS ---
Patient Name: Shanda Felder Procedure Date: 11/20/2024 11:44 AM Date of : 1960 Age: 63 Procedure: Upper GI endoscopy Indications: Iron deficiency anemia Providers: Johnathon Hobson DO Medicines: Monitored Anesthesia Care Patient Profile: This is a 63 year old female. Refer to note in patient chart for documentation of history and physical. Complications: No immediate complications. Procedure: Pre-Anesthesia Assessment: - Prior to the procedure, a History and Physical was performed, and patient medications and allergies were reviewed. The patient is competent. The risks and benefits of the procedure and the sedation options and risks were discussed with the patient. All questions were answered and informed consent was obtained. Patient identification and proposed procedure were verified by the physician in the pre-procedure area. Mental Status Examination: alert and oriented. Airway Examination: normal oropharyngeal airway and neck mobility. Respiratory Examination: clear to auscultation. CV Examination: normal. Prophylactic Antibiotics: The patient does not require prophylactic antibiotics. Prior Anticoagulants: The patient has taken no anticoagulant or antiplatelet agents except for NSAID medication. ASA Grade Assessment: II - A patient with mild systemic disease. After reviewing the risks and benefits, the patient was deemed in satisfactory condition to undergo the procedure. The anesthesia plan was to use monitored anesthesia care (MAC). Immediately prior to administration of medications, the patient was re-assessed for adequacy to receive sedatives. The heart rate, respiratory rate, oxygen saturations, blood pressure, adequacy of pulmonary ventilation, and response to care were monitored throughout the procedure. The physical status of the patient was re-assessed after the procedure. After obtaining informed consent, the endoscope was passed under direct vision. Throughout the procedure, the patient's blood pressure, pulse, and oxygen saturations were monitored continuously. The Colonoscope was introduced through the mouth, and advanced to the fourth part of the duodenum. Small bowel enteroscopy was deemed necessary. The upper GI endoscopy was accomplished without difficulty. The patient tolerated the procedure well. Scope In: 11:59:43 AM Scope Out: 12:04:08 PM Total Procedure Duration Time 0 hours 4 minutes 25 seconds Findings: Patchy, white plaques were found in the upper third of the esophagus. One non-bleeding linear gastric ulcer with no stigmata of bleeding was found in the gastric body. The lesion was 6 mm in largest dimension. Biopsies were taken with a cold forceps for histology. Verification of patient identification for the specimen was done. Estimated blood loss was minimal. Biopsies were taken with a cold forceps for Helicobacter pylori testing. Verification of patient identification for the specimen was done. No gross lesions were noted in the entire examined duodenum. Impression: - Esophageal plaques were found, consistent with candidiasis. - Non-bleeding gastric ulcer with no stigmata of bleeding. Biopsied. - No gross lesions in the entire examined duodenum. Recommendation: - Continue present medications. Johnathon Hobson DO 11/20/2024 12:25:50 PM This report has been signed electronically. Number of Addenda: 0 Note Initiated On: 11/20/2024 11:44 AM
--- NOTE | 2024-11-20 12:32 | OP.COLON_ITS ---
Patient Name: Shanda Felder Procedure Date: 11/20/2024 12:04 PM Date of : 1960 Age: 63 Procedure: Colonoscopy Indications: Unexplained iron deficiency anemia Providers: Johnathon Hobson DO Medicines: Monitored Anesthesia Care Patient Profile: This is a 63 year old female. Refer to note in patient chart for documentation of history and physical. Last Colonoscopy: several years ago. Complications: No immediate complications. Procedure: Pre-Anesthesia Assessment: - Prior to the procedure, a History and Physical was performed, and patient medications and allergies were reviewed. The patient is competent. The risks and benefits of the procedure and the sedation options and risks were discussed with the patient. All questions were answered and informed consent was obtained. Patient identification and proposed procedure were verified by the physician in the pre-procedure area. Mental Status Examination: alert and oriented. Airway Examination: normal oropharyngeal airway and neck mobility. Respiratory Examination: clear to auscultation. CV Examination: normal. Prophylactic Antibiotics: The patient does not require prophylactic antibiotics. Prior Anticoagulants: The patient has taken no anticoagulant or antiplatelet agents except for NSAID medication. ASA Grade Assessment: II - A patient with mild systemic disease. After reviewing the risks and benefits, the patient was deemed in satisfactory condition to undergo the procedure. The anesthesia plan was to use monitored anesthesia care (MAC). Immediately prior to administration of medications, the patient was re-assessed for adequacy to receive sedatives. The heart rate, respiratory rate, oxygen saturations, blood pressure, adequacy of pulmonary ventilation, and response to care were monitored throughout the procedure. The physical status of the patient was re-assessed after the procedure. After I obtained informed consent, the scope was passed under direct vision. Throughout the procedure, the patient's blood pressure, pulse, and oxygen saturations were monitored continuously. The Colonoscope was introduced through the anus and advanced to the cecum, identified by appendiceal orifice and ileocecal valve. The colonoscopy was performed without difficulty. The patient tolerated the procedure well. The quality of the bowel preparation was adequate. The ileocecal valve, appendiceal orifice, and rectum were photographed. Scope In: 12:06:38 PM Scope Withdrawal Time 0 hours 8 minutes 6 seconds Scope Out: 12:18:58 PM Total Procedure Duration Time 0 hours 12 minutes 20 seconds Findings: The perianal and digital rectal examinations were normal. A 5 mm polyp was found in the cecum. The polyp was sessile. The polyp was removed with a jumbo cold forceps. Resection and retrieval were complete. Verification of patient identification for the specimen was done. Estimated blood loss was minimal. A few small-mouthed diverticula were found in the colon. Impression: - One 5 mm polyp in the cecum, removed with a jumbo cold forceps. Resected and retrieved. - Diverticulosis. Recommendation: - Written discharge instructions were provided to the patient. - The signs and symptoms of potential delayed complications were discussed with the patient. - Patient has a contact number available for emergencies. - Repeat colonoscopy in 5 years for screening purposes. - Continue present medications. Procedure Code(s): --- Professional --- 01839, Colonoscopy, flexible; with biopsy, single or multiple CPT copyright 2021 [employer]. All rights reserved. The codes documented in this report are preliminary and upon tail puller review may be revised to meet current compliance requirements. Johnathon Hobson DO 11/20/2024 12:31:24 PM This report has been signed electronically. Number of Addenda: 0 Note Initiated On: 11/20/2024 12:04 PM
--- NOTE | 2024-11-20 12:32 | OP.CCLET_ITS ---
11/20/2024 Corin Mariscal Md Re : Colonoscopy procedure for Shanda Felder Dear [place] This procedure was performed on November. My impressions and recommendations are as follows: Impressions : - One 5 mm polyp in the cecum, removed with a jumbo cold forceps. Resected and retrieved. - Diverticulosis. Recommendations : - Written discharge instructions were provided to the patient. - The signs and symptoms of potential delayed complications were discussed with the patient. - Patient has a contact number available for emergencies. - Repeat colonoscopy in 5 years for screening purposes. - Continue present medications. My findings are described in the full procedure note, which is enclosed. If I can be of further assistance, please feel free to contact me at . Sincerely, Johnathon Hobson, 11/20/2024 12:31:24 PM This report has been signed electronically.
--- NOTE | 2024-11-20 12:32 | PCM.POST.ANE ---
Anesthesia: Postop Eval I Current Vital Signs Temperature: 97.8 F Pulse Rate: 84 Blood Pressure: 109/63 Respiratory Rate: 18 Pulse Ox: 98 Oxygen Delivery Method: Nasal Cannula Oxygen Flow Rate (L/min): 0.5 Assessment Airway patent: Yes Spontaneous unlabored respirations: Yes Mental status: Awake and Apprehensive nausea: Yes Vomiting: No Anesthesia Complication: Yes Anesthesia Complication Comment:: pt reported nausea upon waking up, additional zofran adm IV, now reports abdominal pain in PACU, surgeon notified Fluid Hydration Crystalloid volume administer (ml): 700 Total IV fluid infused: 700 Progress Note Anesthesia document: Postop Eval 1 completed: Yes
--- NOTE | 2024-11-20 13:27 | PCM.POSTANE2 ---
Anesthesia Postop Eval I Sum Postop Eval Completion status Anesthesia document: Postop Eval 1 completed: Yes Anesthesia Postop Eval I Summary Anesthesia Postop Eval I Summary: Anesthesia Postop Eval I: Assessment Summary Airway patent Yes 11/20/24 12:34 [email or web address] Spontaneous unlabored Yes 11/20/24 12:34 [email or web address] respirations Mental status Awake,Apprehensive 11/20/24 12:34 [email or web address] nausea Yes 11/20/24 12:34 [email or web address] Vomiting No 11/20/24 12:34 [email or web address] Anesthesia Postop Eval I: Fluid Summary Crystalloid volume administer 700 11/20/24 12:34 [email or web address] (ml) Colloids volume administered ( ml) Blood Product volume administered (ml) Total IV fluid infused 700 11/20/24 12:34 [email or web address] Anesthesia Postop Eval I: Summary Notes Anesthesia Complication Yes 11/20/24 12:34 [email or web address] Anesthesia Complication pt reported nausea 11/20/24 12:34 [email or web address] Comment: upon waking up, additional zofran adm IV, now reports abdominal pain in PACU, surgeon notified Post-operative progress note Anesthesia: Postop Eval II Evaluation Mental status: Awake Pain Level: 0 nausea: No Vomiting: No Complications Anesthesia Complication: No
== END 2024-11-20 13:09 | disposition home or self-care (01) ==
LOC: EN 10:49 → AC 10:49
PROVIDERS: PCP Family Medicine; Referring Provider Family Medicine; Visit Provider Internal Medicine Gastroenterology
PROC: 0DJD8ZZ Inspection of Lower Intestinal Tract, Via Natural or Artificial Opening Endoscopic (ICD-10-PCS; CPT 45378; principal; 2024-11-20 11:55)
DX: D50.9 Iron deficiency anemia, unspecified (principal); B37.81 Candidal esophagitis; F03.90 Unspecified dementia, unspecified severity, without behavioral disturbance, psychotic disturbance, mood disturbance, and anxiety; J44.9 Chronic obstructive pulmonary disease, unspecified; E11.9 Type 2 diabetes mellitus without complications; E78.5 Hyperlipidemia, unspecified; K21.9 Gastro-esophageal reflux disease without esophagitis; K57.90 Diverticulosis of intestine, part unspecified, without perforation or abscess without bleeding; Z87.891 Personal history of nicotine dependence; K25.9 Gastric ulcer, unspecified as acute or chronic, without hemorrhage or perforation; Z79.51 Long term (current) use of inhaled steroids; G47.33 Obstructive sleep apnea (adult) (pediatric); Z99.89 Dependence on other enabling machines and devices; Z79.899 Other long term (current) drug therapy; F32.A Depression, unspecified; F41.9 Anxiety disorder, unspecified; Z98.51 Tubal ligation status; Z90.49 Acquired absence of other specified parts of digestive tract; Z90.710 Acquired absence of both cervix and uterus; D12.0 Benign neoplasm of cecum; I10 Essential (primary) hypertension
CPT/HCPCS: 45380; 43239; 82962; 88305; 88342

== ENCOUNTER → 2024-11-24 | Outpatient (CLI) | payer MEDICARE, MEDICAID, SELFPAY ==
[2024-11-24 17:28] LABS: Absolute Lymphocyte Count 1.03 X10^3/uL (0.83-4.51); Absolute Neutrophil Count 3.2 X10^3/uL (2.0-7.7); Basophil# 0.02 X10^3/uL; Basophil% 0.4 % (0-1); Eosinophil# 0.08 X10^3/uL; Eosinophils% 1.7 % (0-5); Hematocrit 31.7 % (37-47); Hemoglobin 9.8 g/dL (12.0-15.0); Lymphocyte # 1.03 X10^3/ul (0.83-4.51); Lymphocyte % 21.7 % (19-41); Mean Corp Hgb Conc 30.9 g/dL (32-36); Mean Corpuscular Hgb 28.7 pg (27.0-32.0); Mean Corpuscular Volume 92.7 fL (81-99); Mean Platelet Vol. 10.2 fl (6.2-12.0); Monocyte% 8.4 % (0-10); NRBC Flagged by Analyzer 0 % (0-5); Neutrophil % 67.4 % (47-70); Platelet Count 194 K/mm3 (150-450); RBC Distribution Width SD 54.5 fl (35.1-43.9); Red Blood Count 3.42 M/mm3 (4.2-5.4); White Blood Count 4.8 K/mm3 (4.4-11.0)
[2024-11-24 18:33] LABS: Anion Gap 14 (5-15); BUN 20 mg/dL (4-19); BUN/Creat Ratio 12.2 RATIO (10-20); Calcium,Total 8.8 mg/dL (7.6-11.0); Carbon Dioxide 25.7 mmol/L (21.0-32.0); Chloride 101 mmol/L (98-108); Creatinine, Serum 1.62 mg/dL (0.70-1.20); EST Glomerular Filtration Rate 36 (>60); Glucose 84 mg/dL (70-99); Potassium 3.5 mmol/L (3.3-5.1); Sodium Level 141 mmol/L (133-145)
== END | disposition home or self-care (01) ==
LOC: LAB 15:18
PROVIDERS: PCP Family Medicine; Referring Provider Family Medicine Geriatric Medicine; Visit Provider Family Medicine Geriatric Medicine
DX: I10 Essential (primary) hypertension (principal); N17.9 Acute kidney failure, unspecified
CPT/HCPCS: 36415; 80048; 85025

== ENCOUNTER → 2024-12-04 | Outpatient (CLI) | payer MEDICAID, MEDICARE, SELFPAY ==
[2024-12-04 15:59] LABS: Hematocrit 30.0 % (37-47); Hemoglobin 9.1 g/dL (12.0-15.0); Immature Granulocytes Count 0.020 X10^3/uL (0.0-0.0); Mean Corp Hgb Conc 30.3 g/dL (32-36); Mean Corpuscular Volume 96.2 fL (81-99); Mean Platelet Vol. 9.8 fl (6.2-12.0); NRBC Flagged by Analyzer 0 % (0-5); Platelet Count 148 K/mm3 (150-450); RBC Distribution Width CV 15.8 % (11.6-14.6); RBC Distribution Width SD 55.5 fl (35.1-43.9); Red Blood Count 3.12 M/mm3 (4.2-5.4); White Blood Count 5.1 K/mm3 (4.4-11.0)
[2024-12-04 17:06] LABS: AST(SGOT) 30 U/L (<=31); Alanine Aminotransfer ALT/SGPT 24 U/L (<=34); Albumin, Serum 3.9 g/dL (3.4-4.8); Alkaline Phosphatase 134 U/L (35-104); Anion Gap 9 (5-15); BUN 25 mg/dL (4-19); BUN/Creat Ratio 15.8 RATIO (10-20); Calcium,Total 9.2 mg/dL (7.6-11.0); Carbon Dioxide 27.7 mmol/L (21.0-32.0); Chloride 104 mmol/L (98-108); Globulin 1.9 g/dL (2.2-4.2); Glucose 104 mg/dL (70-99); Hepatitis C Antibody Nonreactive (Nonreactive); Potassium 4.0 mmol/L (3.3-5.1); Vitamin D,25 Hydroxy 40.7 ng/mL (30-100)
[2024-12-04 17:40] LABS: Cholesterol 138 mg/dL (<=200); Low Density Lipoprotein Calc. 42 mg/dL; Triglycerides 133 mg/dL; Very Low Density Lipoprotein 27 mg/dL (5-40); cholesterol:hdl ratio screen 1.99
== END | disposition home or self-care (01) ==
LOC: LAB 15:01
PROVIDERS: PCP Family Medicine Geriatric Medicine; Referring Provider Family Medicine Geriatric Medicine; Visit Provider Family Medicine Geriatric Medicine
DX: E78.5 Hyperlipidemia, unspecified (principal); I10 Essential (primary) hypertension; E55.9 Vitamin D deficiency, unspecified; Z13.89 Encounter for screening for other disorder
CPT/HCPCS: 36415; 80053; 80061; 82306; 84443; 85025; 86803

== ENCOUNTER 2025-01-05 16:27 | Emergency (ER) | payer MEDICARE, MEDICAID, SELFPAY ==
[2025-01-05] VITALS (18 sets, daily range): BP systolic 91–155; BP diastolic 61–91; PULSE 95–101; RESP 14–28; TEMP 36.3–37.2; O2SAT 64–100
--- NOTE | 2025-01-05 17:02 | EKG12_ITS ---
Test Reason : SOB Blood Pressure : */* mmHG Vent. Rate : 99 BPM Atrial Rate : 99 BPM P-R Int : 150 ms QRS Dur : 142 ms QT Int : 396 ms P-R-T Axes : 40 65 0 degrees QTcB Int : 508 ms Normal sinus rhythm Right bundle branch block Cannot rule out Inferior infarct (cited on or before 07-Nov-2024) Abnormal ECG Confirmed by RADHA CLINTON, MG ([id number]), medical editor UZMA HUSTON ([id number]) on 01/07/2025 9:01:55 AM Referred By: Junior Salter Confirmed By: MG GARCIA MD
--- NOTE | 2025-01-05 17:04 | EX.ED.DYSGE1 ---
HPI History of Present Illness Chief Complaint: Shortness of Breath Detail of Chief Complaint: Labile blood pressure, thunderclap headache, diplopia and nausea vomiting Informant: patient and family Onset/Context/Timing Onset: - (See HPI narrative since onset is different depending on complaint) Context: Sudden Onset (Bilateral foot with onset yesterday) Timing: Continuous Quality: Bad pain Location: Bilateral Current Severity: Severe Maximum Severity: Severe Worsened by: Light Relieved by: Nothing Associated Symptoms Associated Symptoms: Nausea and vomiting x 3 today and double vision Narrative Narrative: Patient is a 64-year-old woman. She has history of hypertension. She was off her blood pressure medicine in collaboration with her doctor, Dr. Romero. The blood pressure medicine was resumed a couple of weeks ago. She has had labile blood pressure readings with pressures in the 80s and also markedly elevated greater than 250. She is presently on losartan. She did not take any losartan on Sunday or Sunday or today. She takes her dose at night. Yesterday she developed a bilateral thunderclap headache with light sensitivity. She denied ringing or ears or decreased hearing. She denied double vision, blurred vision or loss of vision. She denies trouble with speech or swallowing. She denies neck pain or neck stiffness. She denied paresthesia, anesthesia or motor weakness in upper extremity. She has numbness in her lower extremities due to prior back surgeries. She denies bowel or bladder dysfunction. She denies foot drop. Today she had trouble using her phone to look up things, text or email. She called her friend/sister and stated she is having problems. She reports she was very confused. The headache apparently got worse. She had problems with her vision and endorses double vision and vomited 3 times. She is still complaining of severe headache. Her blood pressure readings are mildly elevated. Patient has history of bilateral headaches. She states this is different. Prior similar symptoms: Yes (Hypertension, but not the thunderclap headaches) [facility] Medical History Chronic prescription benzodiazepine use Diabetes Osteoporosis Kidney stones Irregular heart beat Chest pain Normocytic anemia Diabetes Chronic pain CPAP (continuous positive airway pressure) dependence Contusion of left hip Contusion of rib on right side Contusion of left shoulder Contusion of scalp Closed fracture of fibula, proximal, left Pyuria Substance abuse Kidney disease Former smoker BiPAP (biphasic positive airway pressure) dependence Sleep apnea On home oxygen therapy Hypertension Dementia Alcohol withdrawal Alcohol abuse Admitted to alcohol detoxification center Medical marijuana use Frequent falls DVT (deep venous thrombosis) Right ventricular systolic dysfunction Right bundle branch block (RBBB) Essential (primary) hypertension Sepsis Abdominal pain Migraine Chronic renal insufficiency, stage I Pancytopenia Respiratory tract infection due to COVID-19 virus Endocarditis Gastritis Restrictive lung disease Colitis Osteoarthritis Chronic renal failure Depression GENNARO (obstructive sleep apnea) Pneumonia Bronchitis Asthma COPD (chronic obstructive pulmonary disease) Morbid obesity HLD (hyperlipidemia) Bronchiectasis Idiopathic right ventricular dilation Thrombocytopenia Leukopenia Abnormal liver CT Anemia Anxiety Respiratory insufficiency Respiratory failure with hypoxia Colitis with rectal bleeding History of umbilical hernia History of diarrhea Arthritis Gastroesophageal reflux disease Home Medications ?Medication ?Instructions ?Recorded ?Last Taken ?Type pantoprazole 40 mg tablet,delayed 40 mg PO DAILY ACID REFLUX 12/09/18 11/10/24 09:50 History release rosuvastatin 40 mg tablet 40 mg PO QHS CHOLESTEROL 07/19/21 11/09/24 21:20 History melatonin 10 mg tablet 10 mg PO QHS SLEEP 07/16/22 11/09/24 21:05 History carvedilol 3.125 mg tablet 3.125 mg PO BID HEART #60 tabs 07/20/22 07/12/24 Rx mometasone-formoterol HFA 100 2 puff inhalation BID SHORTNESS OF 03/05/23 11/10/24 07:05 Rx mcg-5 mcg/actuation aerosol BREATH/WHEEZING #13 grams inhaler (Dulera) fluoxetine 40 mg capsule 40 mg PO DAILY depression 01/28/24 11/08/24 History linaclotide 290 mcg capsule 290 mcg PO DAILY bowel function 01/28/24 07/12/24 History (Linzess) trospium 20 mg tablet 20 mg PO BID see 01/28/24 11/10/24 09:50 History ergocalciferol (vitamin D2) 1,250 1,250 mcg PO QWEEK Supplement 07/15/24 11/07/24 History mcg (50,000 unit) capsule albuterol sulfate 90 mcg/actuation 1 puff inhalation Q6H PRN 07/17/24 Unknown Rx aerosol inhaler shortness of breath or wheezing #6.7 grams cyanocobalamin (vitamin B-12) 1,000 mcg PO DAILY Supplement 08/09/24 11/10/24 09:45 History 1,000 mcg tablet (Vitamin B-12) cyclobenzaprine 5 mg tablet 5 mg PO TID PRN PRN muscle spasm 08/09/24 Unknown History ferrous sulfate 325 mg (65 mg 325 mg PO QDAY Supplement 08/09/24 11/09/24 13:25 History iron) tablet (iron) sennosides 8.6 mg tablet (Aminata-guy) 8.6 mg PO BID PRN PRN constipation 08/09/24 Unknown History alprazolam 0.5 mg tablet 0.5 mg PO BID PRN anxiety #6 tabs 11/10/24 11/08/24 Rx acetaminophen 500 mg tablet 1,000 mg (2 x 500 mg) PO Q6H PRN 11/19/24 Unknown Rx PRN Pain Score 1-10 #0 tabs furosemide 40 mg tablet 40 mg PO DAILY 5 days #5 tabs 11/19/24 Unknown Rx oxycodone 5 mg tablet 2.5 mg (1/2 x 5 mg) PO Q6H PRN PRN 11/19/24 Unknown Rx Pain Score 1-10 Or Pre Pt/Ot 7 days #14 tabs potassium chloride 20 mEq 20 meq PO DAILYCM 5 days #5 tabs 11/19/24 Unknown Rx tablet,extended release(part/cryst) temazepam 15 mg capsule 15 mg PO QHS 30 days #30 caps 11/19/24 Unknown Rx Allergy/AdvReac Type Severity Reaction Status Date / Time house dust Allergy ITCHY EYES Verified 11/20/24 11:02 Penicillins Allergy Hives Verified 11/20/24 11:02 Seasonal Allergies: Uncoded Allergy ITCHY EYES Verified 11/20/24 11:02 Family History Father Colon cancer Mother Cancer pancreatic Surgical History History of tubal ligation History of appendectomy History of hysterectomy History of cholecystectomy Social History household members: none Smoking Status: Former smoker Tobacco: How many years used: 25 how long ago did patient quit smokin, 0.5ppd second hand exposure: Yes alcohol intake: former substance use type: does not use ROS ROS ED Constitutional Constitutional ED: Denies chills, fever(s), subjective or sweats Eyes Eyes: Reports diplopia; Denies blurry vision or change in vision ENT ENT ED: Denies ear pain, rhinorrhea or sore throat Cardiovascular Cardiovascular: Denies chest pain, orthopnea, palpitations, paroxysmal nocturnal dyspnea or racing heartbeat Respiratory/Chest Respiratory/Chest: Denies cough, dyspnea, dyspnea on exertion, orthopnea or paroxysmal nocturnal dyspnea Gastrointestinal Gastrointestinal: Reports nausea and vomiting; Denies abdominal pain, constipation or melena Genitourinary Genitourinary ED: Denies dysuria, hematuria or urinary frequency Musculoskeletal Musculoskeletal: Denies back pain or neck pain Integumentary Denies rash Neurologic Neurologic: Reports headache(s) and other Details: Reports confusion, detailed HPI narrative ; Denies paresthesias or weakness Psychiatric Psychiatric: Reports anxiety; Denies suicidal ideation or suicidal thoughts Hematologic/Lymphatic Hematologic/Lymphatic: Reports systems reviewed and no addt'l complaints, except as documented EXAM Physical Exam Const Vital Signs: 01/05/25 16:27 01/05/25 16:27 01/05/25 16:27 Temperature 97.3 F L Temperature Source Temporal Pulse Rate 101 H Respiratory Rate 22 H Respiratory Effort Short of Breath Labored Accessory Muscle Use Respiratory Depth Normal Respiratory Pattern Normal Blood Pressure 131/84 H Blood Pressure Mean 99 Pulse Ox 64 70 Oxygen Delivery Method Nasal Cannula Nasal Cannula Nasal Cannula Oxygen Flow Rate (L/min) 3 3 3 01/05/25 16:35 01/05/25 16:38 01/05/25 16:57 Temperature Temperature Source Pulse Rate Respiratory Rate Respiratory Effort Respiratory Depth Respiratory Pattern Blood Pressure 155/91 H Blood Pressure Mean 112 Pulse Ox 100 97 99 Oxygen Delivery Method Non-Rebreather High Flow Oxygen Flow Rate (L/min) 15 8 01/05/25 17:11 01/05/25 17:20 01/05/25 17:27 Temperature Temperature Source Pulse Rate 99 Respiratory Rate 19 H Respiratory Effort Respiratory Depth Respiratory Pattern Blood Pressure 134/91 H Blood Pressure Mean 105 Pulse Ox 100 100 99 Oxygen Delivery Method High Flow High Flow Nasal Cannula Oxygen Flow Rate (L/min) 8 6 3 01/05/25 17:28 01/05/25 17:29 01/05/25 17:30 Temperature 97.3 F L Temperature Source Oral Pulse Rate 99 Respiratory Rate 19 H Respiratory Effort Respiratory Depth Respiratory Pattern Blood Pressure 134/91 H 111/76 Blood Pressure Mean 105 87 Pulse Ox 99 99 99 Oxygen Delivery Method Nasal Cannula Nasal Cannula Oxygen Flow Rate (L/min) 3 5 3 01/05/25 17:34 01/05/25 17:59 01/05/25 18:00 Temperature 98.9 F Temperature Source Oral Pulse Rate 98 Respiratory Rate 28 H Respiratory Effort Respiratory Depth Respiratory Pattern Blood Pressure 116/71 116/71 Blood Pressure Mean 86 86 Pulse Ox 98 99 Oxygen Delivery Method Nasal Cannula Nasal Cannula Oxygen Flow Rate (L/min) 3 3 01/05/25 18:30 01/05/25 19:00 01/05/25 19:00 Temperature 98.9 F Temperature Source Oral Pulse Rate 98 97 97 Respiratory Rate 16 18 Respiratory Effort Respiratory Depth Respiratory Pattern Blood Pressure 123/65 H 110/71 110/71 Blood Pressure Mean 84 84 84 Pulse Ox 97 97 Oxygen Delivery Method Nasal Cannula Nasal Cannula Oxygen Flow Rate (L/min) 3 3 01/05/25 20:00 01/05/25 20:30 01/05/25 21:12 Temperature 98 F 98 F Temperature Source Temporal Pulse Rate 95 97 96 Respiratory Rate 18 16 14 Respiratory Effort Respiratory Depth Respiratory Pattern Blood Pressure 104/69 91/61 104/69 Blood Pressure Mean 80 71 80 Pulse Ox 100 97 98 Oxygen Delivery Method Nasal Cannula Nasal Cannula Oxygen Flow Rate (L/min) 3 3 Positive well nourished Constitutional Narrative: Blood pressure readings noted. Patient is heavyset with a BMI greater than 40. General Appearance ED: Negative for pallor HEENT Reports moist mucous membranes HEENT Narrative: Head is atraumatic and normocephalic. Right ear, external auditory canal and TM normal. There is significant amount of cerumen in the left auditory canal. Small visualization of the TM. What is visualized is normal. Eyes PERRL and EOMs intact bilaterally Eyes Narrative: There is nystagmus with forced lateral gaze to the right and left. This would be more consistent with peripheral vertigo. There is no papilledema. Cup-to-disc ratio is normal. Exam is limited since her eyes were not dilated. Neck no lymphadenopathy, supple and no JVD Neck Narrative: There is no nuchal rigidity or meningeal findings. Resp normal respiratory effort and clear to auscultation bilaterally Cardio regular rate, regular rhythm, S1 normal heart sound, S2 normal heart sound and no murmurs GI normal to inspection, nondistended, normoactive bowel sounds, non-tender, non-distended and no masses; Negative for hepatosplenomegaly Back/Spine no CVA tenderness Extremity normal to inspection General Extremety ED: Negative for edema or tenderness General Extremity: Negative for edema Neuro oriented x3, CN's II-XII intact bilaterally and no sensory deficits noted Neuro Narrative: There is no dysmetria. There is no clonus Babinski sign noted. Patient has abnormal sensation in both lower extremities due to prior back surgery. Sensorium / Orientation: alert Motor Exam: strength 5/5 throughout Psych Mood & Affect: anxious Skin no rashes or lesions noted, no wounds and skin turgor normal General Skin Exam: elasticity normal; Negative for jaundice or pallor MDM MDM MDM Narrative Medical decision making narrative: With thunderclap headache will need to evaluate for aneurysm/subarachnoid hemorrhage. CT of the head without contrast and CTA of the head and neck was obtained since her headache started greater than 24 hours ago. With her complaining of diplopia nausea vomiting and confusion will need to consider vertebrobasilar insufficiency/stroke. Again symptoms have been intermittent and onset is unknown. Will obtain blood work to assess for endorgan dysfunction. ESR was obtained for atypical presentation of vasculitis. Patient's ventricular to water per instructions by her doctor. She is had significant mount of water today. She does have history of hyponatremia. Patient is known to be on 8 L. She is normally on 3 L. With her having episodes of vomiting maybe she aspirated. Will add a chest x-ray. History & Record Review Additional record(s) reviewed:: Prior inpatient record (Admitted November 2024 for acute kidney injury secondary to dehydration. This note was authored by Dr. Blayne Santana.), Prior outpatient record (Home visit note from December 11 was reviewed. Patient noted to have functional limitation, foot physical limitations and requires assistance of others to leave her house. Takes effort. She needs moderate assistance. Patient apparently has history of hyponatremia. This is important since patient st), Prior ED visit, Prior labs and Other (Patient was seen by Dr. Hobson for anemia. His H&P was reviewed offered the note was third November 20, 2024.) Lab Data Attestation: I reviewed the patient's lab results. Lab results narrative: Patient is neutropenic and anemic. She has history of neutropenia. Indices are normal. There is no shift. Comprehensive metabolic panel was elevated creatinine of 1.21. This is better than prior. Glucose is elevated 124 with a normal CO2 anion gap. Labs: Laboratory Results - last 24 hr 01/05/25 16:40 WBC 3.5 L RBC 3.16 L Hgb 9.6 L Hct 30.7 L MCV 97.2 MCH 30.4 MCHC 31.3 L RDW Std Deviation 48.4 H RDW Coeff of Jaun 13.6 Plt Count 138 L MPV 10.0 Immature Gran % (Auto) 0.600 Neut % (Auto) 68.9 Lymph % (Auto) 17.9 L Bledsoe % (Auto) 11.1 H Eos % (Auto) 0.9 Baso % (Auto) 0.6 Absolute Neuts (auto) 2.4 Absolute Lymphs (auto) 0.63 L Nucleated RBC % 0 ESR 8 Sodium 141 Potassium 3.5 Chloride 100 Carbon Dioxide 32.0 Anion Gap 9 BUN 19 Creatinine 1.21 H Est GFR (MDRD) Non-Af 50 L BUN/Creatinine Ratio 15.7 Glucose 124 H Calcium 9.3 Total Bilirubin 0.82 AST 16 ALT 15 Alkaline Phosphatase 110 H Total Protein 6.1 Albumin 4.1 Globulin 2.1 L Albumin/Globulin Ratio 2.0 Radiography Chest X-Ray - ED: 2 View (Limited is probably volume. Bibasilar discoid atelectasis left greater than right. This is new since November 07, 2024. Rods noted of thoracic spine. Mediastinum is not widened. Ostia structures with no acute pathology.) and Read by ED Physician Diagnostic Testing: Clinical Impression(s) from Imaging Studies Brain CT 01/05/25 18:09 IMPRESSION: Unremarkable head CT. Reading Location: [id number] Head/Neck CTA 01/05/25 18:09 IMPRESSION: Patent intracranial and cervical arterial vasculature. No large vessel occlusion, significant flow-limiting stenosis, aneurysm or other significant abnormality. Reading Location: [id number] Chest X-Ray 01/05/25 18:15 IMPRESSION: Shallow inspiration with bibasilar linear/discoid atelectasis. No definite focal consolidation, or pleural effusion. Reading Location: [id number] Management Discussion w/another healthcare provider: PCP (PCP informed her that she has chronic headaches. Also informing that she has functional neurologic symptoms. Since her workup is negative and she has a normal exam will discharge to home. Suspect this is a functional neurologic event.) and Other (Apparently Dr. Aquino is no longer her primary care physician. It is Dr. Romero. I spoke with Dr. Aquino not Dr. Romero.) Discharge Plan Triage Chief Complaint: Shortness of Breath ED Provider: Junior Salter Dx/Rx/DC Orders Clinical Impression: Functional neurologic complaint, Nausea & vomiting, BMI 40.0-44.9, adult, Type 2 diabetes mellitus with hyperglycemia, Depression, Primary thunderclap headache, Tachycardia, Transient confusion Instructions: ED Vomiting (Adult) Prescriptions: No Action Dulera 100-5 mcg/actuation HFA aerosol inhaler 2 puff inhalation BID Qty: 13 3RF pantoprazole 40 MG tablet 40 mg PO DAILY rosuvastatin 40 mg Tablet 40 mg PO QHS melatonin 10 mg Tablet 10 mg PO QHS carvedilol 3.125 mg Tablet 3.125 mg PO BID Qty: 60 0RF cyclobenzaprine 5 mg tablet 5 mg PO TID PRN PRN (Reason: muscle spasm) sennosides [Aminata-guy] 8.6 mg tablet 8.6 mg PO BID PRN PRN (Reason: constipation) ferrous sulfate [iron] 325 mg (65 mg iron) tablet 325 mg PO QDAY cyanocobalamin (vitamin B-12) [Vitamin B-12] 1,000 mcg tablet 1,000 mcg PO DAILY alprazolam 0.5 mg tablet 0.5 mg PO BID PRN (Reason: anxiety) Qty: 6 0RF acetaminophen 500 mg Tablet 1,000 mg PO Q6H PRN PRN (Reason: Pain Score 1-10) Qty: 0 0RF furosemide 40 mg Tablet 40 mg PO DAILY 5 Days Qty: 5 0RF oxycodone 5 mg Tablet 2.5 mg PO Q6H PRN PRN (Reason: Pain Score 1-10 Or Pre Pt/Ot) 7 Days Qty: 14 0RF potassium chloride 20 mEq Tablet,Er Particles/Crystals 20 meq PO DAILYCM 5 Days Qty: 5 0RF temazepam 15 mg Capsule 15 mg PO QHS 30 Days Qty: 30 0RF fluoxetine 40 mg capsule 40 mg PO DAILY Linzess 290 mcg capsule 290 mcg PO DAILY trospium 20 mg tablet 20 mg PO BID ergocalciferol (vitamin D2) 1,250 mcg (50,000 unit) capsule 1,250 mcg PO QWEEK albuterol sulfate 90 mcg/actuation HFA aerosol inhaler 1 puff inhalation Q6H PRN (Reason: shortness of breath or wheezing) Qty: 6.7 0RF Primary Care Provider: Addison Romero Chi Referrals: Addison Romero Chi, MD [Primary Care Provider] - 1 Week Print Language: Kazakh Disposition Disposition: Home, Self Care
[2025-01-05 17:20] LABS: Hematocrit 30.7 % (37-47); Hemoglobin 9.6 g/dL (12.0-15.0); Immature Granulocytes Count 0.020 X10^3/uL (0.0-0.0); Mean Corp Hgb Conc 31.3 g/dL (32-36); Mean Corpuscular Volume 97.2 fL (81-99); Mean Platelet Vol. 10.0 fl (6.2-12.0); NRBC Flagged by Analyzer 0 % (0-5); Platelet Count 138 K/mm3 (150-450); RBC Distribution Width CV 13.6 % (11.6-14.6); RBC Distribution Width SD 48.4 fl (35.1-43.9); Red Blood Count 3.16 M/mm3 (4.2-5.4); White Blood Count 3.5 K/mm3 (4.4-11.0)
--- NOTE | 2025-01-05 17:51 | CM.ED ---
Social work SW was walking by nurses' station when patient called out to SW; this SW is known to this patient due to a community setting. SW entered patient's room, introducing self and role to patient's sister who was bedside. Patient informed SW of reason for presentation to [facility] ED. SW utilized active listening and supportive presence while with patient and patient's sister. Patient stated no further needs at this point in time. SW to follow as needed. Erica Grant, GEOSCIENCES PROFESSOR, [employer]
[2025-01-05 18:00] LABS: AST(SGOT) 16 U/L (<=31); Alanine Aminotransfer ALT/SGPT 15 U/L (<=34); Albumin, Serum 4.1 g/dL (3.4-4.8); Alkaline Phosphatase 110 U/L (35-104); Anion Gap 9 (5-15); BUN 19 mg/dL (4-19); BUN/Creat Ratio 15.7 RATIO (10-20); Calcium,Total 9.3 mg/dL (7.6-11.0); Carbon Dioxide 32.0 mmol/L (21.0-32.0); Chloride 100 mmol/L (98-108); Globulin 2.1 g/dL (2.2-4.2); Glucose 124 mg/dL (70-99); Potassium 3.5 mmol/L (3.3-5.1)
--- NOTE | 2025-01-05 18:09 | CT_ITS ---
PROCEDURE: CTA HEAD AND NECK W/ CONTRAST 01/05/2025 REASON FOR EXAM: THUNDERCLAP HEADACHE WITH NAUSEA VOMITING AND DIPL TECHNIQUE: CTA HEAD AND NECK W/ CONTRAST Multiplanar Sagittal and Coronal images were obtained. 3D and MIP post processing was performed. CONTRAST: Isovue 370 VOLUME: 100 mL One or more dose reduction techniques were used (e.g., Automated exposure control, adjustment of the mA and/or kV according to patient size, use of iterative reconstruction technique). RADIATION DOSE SUMMARY: DLP: 1628.71 mGycm COMPARISON: Noncontrast CT head same day 01/05/2025. CTA head/neck 06/08/2021. FINDINGS: CTA HEAD: Patent intracranial arterial vasculature. No large vessel occlusion, flow- limiting stenosis, saccular aneurysm, or vascular malformation identified. Major dural venous sinuses appear patent. CTA NECK: Conventional aortic arch branching. Bilateral cervical carotid and codominant vertebral arteries are patent without significant stenosis. Mild atherosclerotic plaque at the carotid bifurcations and along the distal ICA cavernous segments, without significant luminal narrowing. No aneurysm or dissection. NON-ANGIOGRAPHIC FINDINGS: Heterogeneous thyroid with multiple small hypodense nodules/cysts. Mild multilevel degenerative changes of the cervical spine. CT/CTA Head AND Neck W/ Contrast IMPRESSION: Patent intracranial and cervical arterial vasculature. No large vessel occlusi on, significant flow-limiting stenosis, aneurysm or other significant abnormality. Reading Location: [id number]
--- NOTE | 2025-01-05 18:09 | CT_ITS ---
PROCEDURE: CT BRAIN/HEAD WITHOUT CONTRAST 01/05/2025 REASON FOR EXAM: THUNDERCLAP HEADACHE YESTERDAY, DIPLOPIA WITH NAUS TECHNIQUE: CT BRAIN/HEAD WITHOUT CONTRAST. Coronal and Sagittal reconstruction series were provided. One or more dose reduction techniques were used (e.g., Automated exposure control, adjustment of the mA and/or kV according to patient size, use of iterative reconstruction technique. RADIATION DOSE SUMMARY: DLP: 1628.71 mGycm COMPARISON: 11/07/2024 FINDINGS: No acute intracranial hemorrhage, extra-axial collection, mass effect or evidence of acute infarct. Ventricles and subarachnoid spaces are normal in size. Grossly unremarkable orbits. Intact skull base and calvarium. Clear paranasal sinuses and mastoid air cells. CT/Brain/Head without Contrast IMPRESSION: Unremarkable head CT. Reading Location: [id number]
--- NOTE | 2025-01-05 18:15 | RAD_ITS ---
PROCEDURE: CHEST PA AND LATERAL 01/05/2025 REASON FOR EXAM: ACUTE ON CHRONIC HYPOXEMIC RESPIRATORY FAILURE TECHNIQUE: CHEST PA AND LATERAL COMPARISON: 11/07/2024 FINDINGS: Lungs/Pleura: Shallow inspiration, with associated bronchovascular crowding and bibasilar linear/discoid atelectasis. No focal consolidation, pneumothorax, or sizable pleural effusion. Heart/Mediastinum: Cardiomegaly, although likely exaggerated by technique. Bones/Soft tissues: Mild degenerative changes of the spine. Partially imaged lower thoracolumbar metallic posterior spinal fusion hardware. RAD/Chest PA and Lateral IMPRESSION: Shallow inspiration with bibasilar linear/discoid atelectasis. No definite focal consolidation, or pleural effusion. Reading Location: [id number]
== END 2025-01-05 21:38 | disposition home or self-care (01) ==
PROVIDERS: Emergency Provider Emergency Medicine; PCP Family Medicine Geriatric Medicine; Referring Provider Emergency Medicine; Visit Provider Emergency Medicine
DX: R06.02 Shortness of breath (principal); J44.9 Chronic obstructive pulmonary disease, unspecified; E11.65 Type 2 diabetes mellitus with hyperglycemia; E11.22 Type 2 diabetes mellitus with diabetic chronic kidney disease; Z90.710 Acquired absence of both cervix and uterus; I12.9 Hypertensive chronic kidney disease with stage 1 through stage 4 chronic kidney disease, or unspecified chronic kidney disease; E78.5 Hyperlipidemia, unspecified; Z87.891 Personal history of nicotine dependence; R41.0 Disorientation, unspecified; G44.53 Primary thunderclap headache; F32.A Depression, unspecified; N18.1 Chronic kidney disease, stage 1; R00.0 Tachycardia, unspecified; G47.33 Obstructive sleep apnea (adult) (pediatric); Z99.89 Dependence on other enabling machines and devices; K21.9 Gastro-esophageal reflux disease without esophagitis; Z79.899 Other long term (current) drug therapy; Z79.51 Long term (current) use of inhaled steroids; F41.9 Anxiety disorder, unspecified; Z98.51 Tubal ligation status; Z90.49 Acquired absence of other specified parts of digestive tract
CPT/HCPCS: 70450; 70496; 70498; 71046; 80053; 85025; 85652; 93005; 99283; Q9967; A4216

== ENCOUNTER → 2025-02-16 | Outpatient (CLI) | payer MEDICAID, MEDICARE, SELFPAY ==
[2025-02-16 17:17] LABS: Hematocrit 39.8 % (37-47); Hemoglobin 12.9 g/dL (12.0-15.0); Immature Granulocytes Count 0.010 X10^3/uL (0.0-0.0); Mean Corp Hgb Conc 32.4 g/dL (32-36); Mean Corpuscular Volume 91.9 fL (81-99); Mean Platelet Vol. 10.3 fl (6.2-12.0); NRBC Flagged by Analyzer 0 % (0-5); Platelet Count 216 K/mm3 (150-450); RBC Distribution Width CV 13.2 % (11.6-14.6); RBC Distribution Width SD 44.3 fl (35.1-43.9); Red Blood Count 4.33 M/mm3 (4.2-5.4); White Blood Count 6.0 K/mm3 (4.4-11.0)
[2025-02-16 17:35] LABS: AST(SGOT) 24 U/L (<=31); Alanine Aminotransfer ALT/SGPT 14 U/L (<=34); Albumin, Serum 4.3 g/dL (3.4-4.8); Alkaline Phosphatase 106 U/L (35-104); Anion Gap 14 (5-15); BUN 17 mg/dL (4-19); BUN/Creat Ratio 11.5 RATIO (10-20); Calcium,Total 9.7 mg/dL (7.6-11.0); Carbon Dioxide 22.8 mmol/L (21.0-32.0); Chloride 101 mmol/L (98-108); Globulin 2.3 g/dL (2.2-4.2); Glucose 89 mg/dL (70-99); Potassium 3.1 mmol/L (3.3-5.1)
[2025-02-16 17:38] LABS: Prothrombin Time (Protime)PT. 12.6 SECONDS (11.7-14.9)
[2025-02-16 19:55] LABS: CRP < 3.00 mg/L (0.0-3.0)
[2025-02-16 20:09] LABS: LDH 200 U/L (84-246)
[2025-02-20 15:08] LABS: Albumin 3.7 g/dL (2.9-4.4); Gamma Globulin 0.5 g/dL (0.4-1.8); HEPATITIS B SURFACE AG Negative (Negative); Hep C Antibodies Non Reactive (Non Reactive); IMMUNOFIXATION RESULT,S Comment: (.); Immunoglobulin A 66 mg/dL (87-352); Immunoglobulin G 437 mg/dL (586-1602); Immunoglobulin M 39 mg/dL (26-217); PROEL- TOTAL PROTEIN 6.3 g/dL (6.0-8.5); QNTFERON TB Mitogen Value > 10.00 IU/mL (.); QNTFERON TB Nil Value 0.05 IU/mL (.); QNTFERON TB1+ Ag Value 0.06 IU/mL (.); QNTFERON TB2+ Ag Value 0.05 IU/mL (.); QNTIFERON TB Positive Criteria Negative (Negative)
== END | disposition home or self-care (01) ==
LOC: LAB 15:46
PROVIDERS: PCP Family Medicine Geriatric Medicine; Referring Provider Internal Medicine Gastroenterology; Visit Provider Internal Medicine Gastroenterology
DX: F41.9 Anxiety disorder, unspecified (principal); D69.6 Thrombocytopenia, unspecified; R11.2 Nausea with vomiting, unspecified
CPT/HCPCS: 36415; 80053; 80074; 82784; 83036; 83615; 84165; 85025; 85610; 85652; 86140; 86334; 86480

== ENCOUNTER → 2025-02-26 | Outpatient (CLI) | payer MEDICAID, MEDICARE, SELFPAY ==
[2025-02-26 11:17] LABS: Hematocrit 36.9 % (37-47); Hemoglobin 11.7 g/dL (12.0-15.0); Immature Granulocytes Count 0.010 X10^3/uL (0.0-0.0); Mean Corp Hgb Conc 31.7 g/dL (32-36); Mean Corpuscular Volume 94.9 fL (81-99); Mean Platelet Vol. 10.3 fl (6.2-12.0); NRBC Flagged by Analyzer 0 % (0-5); Platelet Count 158 K/mm3 (150-450); RBC Distribution Width CV 13.2 % (11.6-14.6); RBC Distribution Width SD 46.2 fl (35.1-43.9); Red Blood Count 3.89 M/mm3 (4.2-5.4); White Blood Count 3.8 K/mm3 (4.4-11.0)
[2025-02-26 12:49] LABS: Ferritin 211 ng/mL (22-378); Iron 62 ug/dL (50-170); Iron Binding Capacity,Unsat 150 ug/dL (228-428)
[2025-02-26 12:53] LABS: Iron Binding Capacity,Total 212 ug/dL (250-450)
[2025-02-26 13:05] LABS: AST(SGOT) 29 U/L (<=31); Alanine Aminotransfer ALT/SGPT 19 U/L (<=34); Albumin, Serum 3.7 g/dL (3.4-4.8); Alkaline Phosphatase 103 U/L (35-104); Anion Gap 14 (5-15); BUN 12 mg/dL (4-19); BUN/Creat Ratio 8.0 RATIO (10-20); Calcium,Total 8.5 mg/dL (7.6-11.0); Carbon Dioxide 25.1 mmol/L (21.0-32.0); Chloride 102 mmol/L (98-108); Cholesterol 212 mg/dL (<=200); Globulin 2.2 g/dL (2.2-4.2); Glucose 122 mg/dL (70-99); Low Density Lipoprotein Calc. 127 mg/dL; Potassium 3.4 mmol/L (3.3-5.1); Triglycerides 188 mg/dL; Very Low Density Lipoprotein 38 mg/dL (5-40); cholesterol:hdl ratio screen 4.47
== END | disposition home or self-care (01) ==
LOC: POLAB3 10:40
PROVIDERS: Family Medicine; PCP Family Medicine Geriatric Medicine; Visit Provider Family Medicine Geriatric Medicine
DX: E78.5 Hyperlipidemia, unspecified (principal); I10 Essential (primary) hypertension; E03.9 Hypothyroidism, unspecified; D64.9 Anemia, unspecified
CPT/HCPCS: 36415; 80053; 80061; 82728; 83540; 83550; 84443; 85025

== ENCOUNTER 2025-04-13 10:06 | Emergency (ER) | payer MEDICARE, MEDICAID, SELFPAY ==
[2025-04-13 10:06] VITALS: BP 181/113; PULSE 125; RESP 24; TEMP 35.8; O2SAT 96
--- NOTE | 2025-04-13 10:23 | EX.ED.GENINJ ---
HPI History of Present Illness Chief Complaint: Chest Other Detail of Chief Complaint: Right chest injury Informant: patient Narrative Narrative: Patient presents with right chest injury. Patient states that last evening around 9 PM she rolled out of bed and hit her right ribs on the nightstand. She presents for evaluation for pain and pain with deep breath. She wears 2 L nasal cannula at all times however she came to the emergency department without oxygen on. Patient not anticoagulated. Did not hit her head. She denies neck pain. Denies other injuries. [facility] Medical History Chronic prescription benzodiazepine use Diabetes Osteoporosis Kidney stones Irregular heart beat Chest pain Normocytic anemia Diabetes Chronic pain CPAP (continuous positive airway pressure) dependence Contusion of left hip Contusion of rib on right side Contusion of left shoulder Contusion of scalp Closed fracture of fibula, proximal, left Pyuria Substance abuse Kidney disease Former smoker BiPAP (biphasic positive airway pressure) dependence Sleep apnea On home oxygen therapy Hypertension Dementia Alcohol withdrawal Alcohol abuse Admitted to alcohol detoxification center Medical marijuana use Frequent falls DVT (deep venous thrombosis) Right ventricular systolic dysfunction Right bundle branch block (RBBB) Essential (primary) hypertension Sepsis Abdominal pain Migraine Chronic renal insufficiency, stage I Pancytopenia Respiratory tract infection due to COVID-19 virus Endocarditis Gastritis Restrictive lung disease Colitis Osteoarthritis Chronic renal failure Depression GENNARO (obstructive sleep apnea) Pneumonia Bronchitis Asthma COPD (chronic obstructive pulmonary disease) Morbid obesity HLD (hyperlipidemia) Bronchiectasis Idiopathic right ventricular dilation Thrombocytopenia Leukopenia Abnormal liver CT Anemia Anxiety Respiratory insufficiency Respiratory failure with hypoxia Colitis with rectal bleeding History of umbilical hernia History of diarrhea Arthritis Gastroesophageal reflux disease Home Medications ?Medication ?Instructions ?Recorded ?Last Taken ?Type mometasone-formoterol HFA 100 2 puff inhalation BID SHORTNESS OF 03/05/23 04/12/25 Rx mcg-5 mcg/actuation aerosol BREATH/WHEEZING #13 grams inhaler (Dulera) linaclotide 290 mcg capsule 290 mcg PO DAILY bowel function 01/28/24 04/13/25 History (Linzess) trospium 20 mg tablet 20 mg PO BID see 01/28/24 04/13/25 History albuterol sulfate 90 mcg/actuation 1 puff inhalation Q6H PRN 07/17/24 Unknown Rx aerosol inhaler shortness of breath or wheezing #6.7 grams ferrous sulfate 325 mg (65 mg 325 mg PO QDAY Supplement 08/09/24 04/13/25 History iron) tablet (iron) alprazolam 0.5 mg tablet 0.5 mg PO BID PRN anxiety #6 tabs 11/10/24 04/12/25 Rx acetaminophen 500 mg tablet 1,000 mg (2 x 500 mg) PO Q6H PRN 11/19/24 04/13/25 Rx PRN Pain Score 1-10 #0 tabs ondansetron 8 mg disintegrating 8 mg PO Q8H PRN nausea and 02/16/25 Unknown Rx tablet vomiting 30 days #90 tabs pantoprazole 40 mg tablet,delayed 40 mg PO BID ACID REFLUX 02/16/25 04/13/25 History release scopolamine base 1 mg over 3 days 1 patch transdermal Q72H #10 ea 02/16/25 Unknown Rx transdermal patch doxepin 25 mg capsule 25 mg PO QHS 04/13/25 04/12/25 History hydrocodone-acetaminophen 5-325mg 1 tab PO Q4H PRN PRN Pain 2 days 04/13/25 Unknown Rx 5mg-325mg #14 TABLETS temazepam 30 mg capsule 30 mg PO QHS PRN PRN sleep 04/13/25 04/12/25 History tirzepatide 7.5 mg/0.5 mL 7.5 mg subcut QWEEK 04/13/25 Unknown History subcutaneous pen injector (Mounjaro) Held on 04/13/25. Instructions: temporarily stopped Allergy/AdvReac Type Severity Reaction Status Date / Time house dust Allergy ITCHY EYES Verified 04/13/25 10:08 Penicillins Allergy Hives Verified 04/13/25 10:08 Seasonal Allergies: Uncoded Allergy ITCHY EYES Verified 04/13/25 10:08 Family History Father Colon cancer Mother Cancer pancreatic Surgical History History of tubal ligation History of appendectomy History of hysterectomy History of cholecystectomy Social History household members: none Smoking Status: Former smoker Tobacco: How many years used: 25 how long ago did patient quit smokin, 0.5ppd second hand exposure: Yes alcohol intake: former substance use type: does not use ROS ROS ED Review of Systems ROS Unobtainable: other Constitutional Constitutional ED: Reports lethargy; Denies chills, fever(s), sweats or weight loss Eyes Eyes: Denies blurry vision, change in vision or diplopia ENT ENT ED: Denies rhinorrhea or sore throat Cardiovascular Cardiovascular: Reports chest pain; Denies orthopnea or racing heartbeat Respiratory/Chest Respiratory/Chest: Denies cough, dyspnea, dyspnea on exertion, orthopnea or sputum Gastrointestinal Gastrointestinal: Denies abdominal pain, diarrhea, nausea or vomiting Genitourinary Genitourinary ED: Denies dysuria, hematuria or urinary frequency Musculoskeletal Musculoskeletal: Denies arthralgias, back pain, myalgias or neck pain Integumentary Denies abscess, Abrasions or rash Neurologic Neurologic: Denies headache(s) or weakness Psychiatric Psychiatric: Denies anxiety, depression or suicidal thoughts Endocrine Endocrinology: Denies polydipsia, polyphagia or polyuria Hematologic/Lymphatic Hematologic/Lymphatic: Denies easy bleeding, easy bruising or lymphadenopathy Allergic/Immunologic Allergic/Immunologic ED: Denies mouth swelling, tongue swelling or urticaria EXAM Physical Exam Const Vital Signs: 04/13/25 10:06 04/13/25 10:17 Temperature 96.4 F L Temperature Source Temporal Pulse Rate 125 H Respiratory Rate 24 H Respiratory Effort Short of Breath Blood Pressure 181/113 H Blood Pressure Mean 135 Pulse Ox 96 Oxygen Delivery Method Nasal Cannula Oxygen Flow Rate (L/min) 2 Positive well nourished and well developed General Appearance ED: well developed and NAD HEENT Reports TM's clear and moist mucous membranes normocephalic and atraumatic; Negative for trauma or tenderness Tympanic Membrane ED: Yes TM's clear Eyes PERRL and EOMs intact bilaterally General Eye ED: Negative for pale conjunctiva or scleral icterus Neck no lymphadenopathy, supple and no JVD General: Negative for tenderness Chest Wall inspection of chest normal; Negative for palpation of chest normal Chest Narrative: Tenderness palpation over the right lower chest wall in the midaxillary line that seems to reproduce her pain. There is no crepitus or subcu edema. Good breath sounds bilaterally. Chest: Negative for tenderness Resp normal respiratory effort and clear to auscultation bilaterally Effort and Inspection: Negative for respiratory distress or pain with movement Auscultation: Negative for rhonchi, wheezes or diminished lung sounds Cardio regular rate, regular rhythm, S1 normal heart sound, S2 normal heart sound and no murmurs Peripheral Pulses: pulses 2+ throughout GI normal to inspection, nondistended, normoactive bowel sounds, soft to palpation, non-tender, non-distended and no masses Back/Spine no CVA tenderness and no thoracic nor lumbar tenderness Extremity normal to inspection General Extremety ED: Negative for edema General Extremity: Negative for edema Neuro oriented x3, CN's II-XII intact bilaterally, no sensory deficits noted and gait normal Sensorium / Orientation: awake, alert, oriented to person, oriented to place and oriented to time Motor Exam: strength 5/5 throughout and strength abnormal Psych mental status grossly normal Skin no rashes or lesions noted and no wounds MDM MDM MDM Narrative Medical decision making narrative: Patient presents after mechanical fall with injury to her right chest wall. She wears normally home O2 but came in without O2 and was hypoxic on arrival. On her 2 L however she is satting in the mid 90s. I did obtain a CT scan of her chest which showed no acute evidence of trauma such as broken ribs or collapsed lung or other acute process. She was medicated with morphine and Zofran initially. This point suspect chest wall contusion. Will write a prescription for hydrocodone for home. Recommended follow-up with her primary care physician within the next 5 to 7 days. Radiography Diagnostic Testing: Clinical Impression(s) from Imaging Studies Chest CT 04/13/25 10:44 IMPRESSION: Coronary artery calcification (CAC) is is present No organized infiltrate, or effusion. Chronic interstitial changes in both lung akbar with bibasilar atelectasis more pronounced in the right lung base in the left. No suspicious adenopathy Degenerative bony changes Reading Location: [id number] Discharge Plan Triage Chief Complaint: Chest Other ED Provider: Torey Mercedes Dx/Rx/DC Orders Clinical Impression: Chest wall contusion Instructions: ED Chest Wall Contusion Prescriptions: New hydrocodone-acetaminophen 5-325 mg tablet 1 tab PO Q4H PRN PRN (Reason: Pain) 2 Days Qty: 14 0RF No Action Dulera 100-5 mcg/actuation HFA aerosol inhaler 2 puff inhalation BID Qty: 13 3RF scopolamine base 1 mg over 3 days patch 3 day 1 patch transdermal Q72H Qty: 10 1RF ondansetron 8 mg tablet,disintegrating 8 mg PO Q8H PRN (Reason: nausea and vomiting) 30 Days Qty: 90 1RF pantoprazole 40 mg tablet,delayed release (DR/EC) 40 mg PO BID ferrous sulfate [iron] 325 mg (65 mg iron) tablet 325 mg PO QDAY alprazolam 0.5 mg tablet 0.5 mg PO BID PRN (Reason: anxiety) Qty: 6 0RF acetaminophen 500 mg Tablet 1,000 mg PO Q6H PRN PRN (Reason: Pain Score 1-10) Qty: 0 0RF doxepin 25 mg capsule 25 mg PO QHS temazepam 30 mg capsule 30 mg PO QHS PRN PRN (Reason: sleep) Mounjaro 7.5 mg/0.5 mL pen injector 7.5 mg subcut QWEEK Linzess 290 mcg capsule 290 mcg PO DAILY trospium 20 mg tablet 20 mg PO BID albuterol sulfate 90 mcg/actuation HFA aerosol inhaler 1 puff inhalation Q6H PRN (Reason: shortness of breath or wheezing) Qty: 6.7 0RF Primary Care Provider: Addison Romero Chi Referrals: Addison Romero Chi, MD [Primary Care Provider, Geriatrics] - 3-5 Days Print Language: Cypriot Disposition Disposition: Home, Self Care
--- NOTE | 2025-04-13 10:44 | CT_ITS ---
PROCEDURE: CT/Chest without Contrast
[2025-04-13 12:28] VITALS: BP 105/64; PULSE 94; RESP 22; TEMP 36.6; O2SAT 97
== END 2025-04-13 12:49 | disposition home or self-care (01) ==
LOC: ED 11:39
PROVIDERS: Emergency Provider Emergency Medicine; PCP Family Medicine Geriatric Medicine; Visit Provider Emergency Medicine
DX: S20.20XA Contusion of thorax, unspecified, initial encounter (principal); J44.9 Chronic obstructive pulmonary disease, unspecified; E11.9 Type 2 diabetes mellitus without complications; E78.5 Hyperlipidemia, unspecified; Z87.891 Personal history of nicotine dependence; Z90.710 Acquired absence of both cervix and uterus; R09.02 Hypoxemia; W06.XXXA Fall from bed, initial encounter; G47.33 Obstructive sleep apnea (adult) (pediatric); Z99.81 Dependence on supplemental oxygen; Z79.51 Long term (current) use of inhaled steroids; F41.9 Anxiety disorder, unspecified; Z79.899 Other long term (current) drug therapy; K21.9 Gastro-esophageal reflux disease without esophagitis; F32.A Depression, unspecified; Z90.49 Acquired absence of other specified parts of digestive tract; Z98.51 Tubal ligation status; I10 Essential (primary) hypertension
CPT/HCPCS: 71250; 96372; 99282; J2405

== ENCOUNTER 2025-04-18 09:13 | Inpatient (IN) | payer MEDICARE, MEDICAID, SELFPAY ==
[2025-04-18] VITALS (13 sets, daily range): BP systolic 113–142; BP diastolic 66–87; PULSE 92–133; RESP 16–30; TEMP 36.1–37.2; O2SAT 84–98; BMI 35.4; BMI 36.5
--- NOTE | 2025-04-18 09:29 | CT_ITS ---
PROCEDURE: CT CHEST, ABD, PEL W/CONTRAST 04/18/2025 REASON FOR EXAM: DYSPNEA, FALL, RIGHT ABDOMEN ECHYMOSIS TECHNIQUE: Chest, abdomen and pelvis CT with intravenous contrast. Coronal and Sagittal reconstruction series were provided. One or more dose reduction techniques were used (e.g., Automated exposure control, adjustment of the mA and/or kV according to patient size, use of iterative reconstruction technique. PATIENT PREPARATION: Per protocol ORAL CONTRAST TYPE: None. AMOUNT: mL CONTRAST: Isovue 370 VOLUME: 100mL Gauge IV RADIATION DOSE SUMMARY: CTDlvol: 83.48 mGy DLP: 3186.89 mGycm COMPARISON: 04/13/2025, 01/05/2025 FINDINGS: CT CHEST: Lung windows show the lungs to be normally expanded, chronic interstitial changes noted with bibasilar atelectasis, [id number]. No infiltrate or effusion. Soft tissue windows show stable thyroid nodules. No suspicious axillary mediastinal or perihilar adenopathy. The thoracic aorta tapers normally. There are calcified coronary vessels. CT ABDOMEN/PELVIS: Liver: Mild fatty infiltration of the liver is noted without a discrete lesion. The hepatic flexure is interposed between the anterior edge of the liver in the peritoneal surface which can cause pain in the right clinical setting. Gallbladder: Not visualized Spleen: Normal size. Pancreas: Normal size without evidence of mass surrounding inflammation or ductal dilation. Adrenals: Unremarkable Kidneys: No obstructive uropathy or suspicious solid renal lesion, simple cortical cysts present in both kidneys, no specific follow-up needed. Bladder: Distends normally Reproductive Organs: Surgically absent Bowel: Retained stool throughout the colon including sigmoid colon and rectum which may be impacted. There are scattered colonic diverticula without CT evidence of acute diverticulitis. Small bowel loops are unremarkable aside from being fluid distended suggesting ileus. Appendix: Not visualized Lymph nodes: No suspicious mesenteric or retroperitoneal lymph nodes Vasculature: Peripheral calcifications in an ectatic abdominal aorta without aneurysm. Peritoneum / Retroperitoneum: No free air or fluid Bones: Rotatory scoliotic curvature in the thoracolumbar spine. Surgical hardware is free of complication. Bilateral hip replacements free of complication. No suspicious induration of the subcutaneous fat to suspect a subcutaneous hematoma CT/CT Chest, Abd, Pel w/Contrast IMPRESSION: No acute pulmonary process, bibasilar atelectasis with small pleural effusions. Follow-up recommended to ensure resolution. No demonstrated rib fracture, pleural thickening or pneumothorax Fatty liver, no discrete lesion Simple cortical cysts in the kidneys, no specific follow-up Retained stool in the colon which may be impacted Degenerative bony changes surgical hardware in the lower lumbar spine, and bila teral replaced hip joints free of complication Reading Location: [id number]
--- NOTE | 2025-04-18 09:31 | EX.ED.DYSGE1 ---
HPI History of Present Illness Chief Complaint: Chest Other Detail of Chief Complaint: Right rib/chest pain Informant: patient Narrative Narrative: Patient presents to the emergency department with complaint of right rib and chest pain. She states she was seen in the emergency department a week ago after a fall. She was actually seen by myself and at that time had CT scan imaging of her chest and no obvious fractures were noted. She was sent home with pain medication. She thought maybe she was getting a little better and felt better yesterday. Yesterday she started with cough and some gurgling that she could hear in the right chest and increased pain. Low-grade temperature to 99. Not sure if cough is productive. She denies hemoptysis. Patient normally wears 2 L nasal cannula O2 at home. [facility] Medical History Chronic prescription benzodiazepine use Diabetes Osteoporosis Kidney stones Irregular heart beat Chest pain Normocytic anemia Diabetes Chronic pain CPAP (continuous positive airway pressure) dependence Contusion of left hip Contusion of rib on right side Contusion of left shoulder Contusion of scalp Closed fracture of fibula, proximal, left Pyuria Substance abuse Kidney disease Former smoker BiPAP (biphasic positive airway pressure) dependence Sleep apnea On home oxygen therapy Hypertension Dementia Alcohol withdrawal Alcohol abuse Admitted to alcohol detoxification center Medical marijuana use Frequent falls DVT (deep venous thrombosis) Right ventricular systolic dysfunction Right bundle branch block (RBBB) Essential (primary) hypertension Sepsis Abdominal pain Migraine Chronic renal insufficiency, stage I Pancytopenia Respiratory tract infection due to COVID-19 virus Endocarditis Gastritis Restrictive lung disease Colitis Osteoarthritis Chronic renal failure Depression GENNARO (obstructive sleep apnea) Pneumonia Bronchitis Asthma COPD (chronic obstructive pulmonary disease) Morbid obesity HLD (hyperlipidemia) Bronchiectasis Idiopathic right ventricular dilation Thrombocytopenia Leukopenia Abnormal liver CT Anemia Anxiety Respiratory insufficiency Respiratory failure with hypoxia Colitis with rectal bleeding History of umbilical hernia History of diarrhea Arthritis Gastroesophageal reflux disease Home Medications ?Medication ?Instructions ?Recorded ?Last Taken ?Type mometasone-formoterol HFA 100 2 puff inhalation BID SHORTNESS OF 03/05/23 04/17/25 Rx mcg-5 mcg/actuation aerosol BREATH/WHEEZING #13 grams inhaler (Dulera) linaclotide 290 mcg capsule 290 mcg PO DAILY bowel function 01/28/24 04/17/25 History (Linzess) trospium 20 mg tablet 20 mg PO BID see 01/28/24 04/17/25 History albuterol sulfate 90 mcg/actuation 1 puff inhalation Q6H PRN 07/17/24 04/17/25 Rx aerosol inhaler shortness of breath or wheezing #6.7 grams ferrous sulfate 325 mg (65 mg 325 mg PO QDAY Supplement 08/09/24 04/17/25 History iron) tablet (iron) alprazolam 0.5 mg tablet 0.5 mg PO BID PRN anxiety #6 tabs 11/10/24 04/18/25 Rx acetaminophen 500 mg tablet 1,000 mg (2 x 500 mg) PO Q6H PRN 11/19/24 04/13/25 Rx PRN Pain Score 1-10 #0 tabs ondansetron 8 mg disintegrating 8 mg PO Q8H PRN nausea and 02/16/25 Unknown Rx tablet vomiting 30 days #90 tabs pantoprazole 40 mg tablet,delayed 40 mg PO BID ACID REFLUX 02/16/25 04/17/25 History release scopolamine base 1 mg over 3 days 1 patch transdermal Q72H #10 ea 02/16/25 Unknown Rx transdermal patch doxepin 25 mg capsule 25 mg PO QHS 04/13/25 04/17/25 History hydrocodone-acetaminophen 5-325mg 1 tab PO Q4H PRN PRN Pain 2 days 04/13/25 Unknown Rx 5mg-325mg #14 TABLETS tirzepatide 7.5 mg/0.5 mL 7.5 mg subcut QWEEK 04/13/25 03/28/25 History subcutaneous pen injector (Esmer) Held on 04/13/25. Instructions: temporarily stopped baclofen 10 mg tablet 10 mg PO DAILY 04/18/25 04/17/25 History naproxen 500 mg tablet 500 mg PO BID 04/18/25 04/17/25 History prednisone 10 mg tablet See Taper PO 04/18/25 04/17/25 History temazepam 15 mg capsule 30 mg PO DAILY 04/18/25 04/17/25 History Allergy/AdvReac Type Severity Reaction Status Date / Time house dust Allergy ITCHY EYES Verified 04/18/25 09:13 Penicillins Allergy Hives Verified 04/18/25 09:13 Seasonal Allergies: Uncoded Allergy ITCHY EYES Verified 04/18/25 09:13 Family History Father Colon cancer Mother Cancer pancreatic Surgical History History of tubal ligation History of appendectomy History of hysterectomy History of cholecystectomy Social History household members: none Smoking Status: Former smoker Tobacco: How many years used: 25 how long ago did patient quit smokin, 0.5ppd second hand exposure: Yes alcohol intake: former substance use type: does not use ROS ROS ED Review of Systems ROS Unobtainable: other Constitutional Constitutional ED: Reports lethargy; Denies chills, fever(s), sweats or weight loss Eyes Eyes: Denies blurry vision, change in vision or diplopia ENT ENT ED: Denies rhinorrhea or sore throat Cardiovascular Cardiovascular: Reports chest pain and racing heartbeat; Denies orthopnea Respiratory/Chest Respiratory/Chest: Reports cough, dyspnea and dyspnea on exertion; Denies orthopnea or sputum Gastrointestinal Gastrointestinal: Denies abdominal pain, diarrhea, nausea or vomiting Genitourinary Genitourinary ED: Denies dysuria, hematuria or urinary frequency Musculoskeletal Musculoskeletal: Denies arthralgias, back pain, myalgias or neck pain Integumentary Denies abscess, Abrasions or rash Neurologic Neurologic: Denies headache(s) or weakness Psychiatric Psychiatric: Denies anxiety, depression or suicidal thoughts Endocrine Endocrinology: Denies polydipsia, polyphagia or polyuria Hematologic/Lymphatic Hematologic/Lymphatic: Denies easy bleeding, easy bruising or lymphadenopathy Allergic/Immunologic Allergic/Immunologic ED: Denies mouth swelling, tongue swelling or urticaria EXAM Physical Exam Const Vital Signs: 04/18/25 09:13 04/18/25 09:13 04/18/25 09:24 Temperature 97 F L Temperature Source Temporal Pulse Rate 123 H 133 H Respiratory Rate 30 H 30 H Respiratory Effort Normal Blood Pressure 142/87 H Blood Pressure Mean 105 Pulse Ox 89 84 Oxygen Delivery Method Nasal Cannula Nasal Cannula Oxygen Flow Rate (L/min) 2 2 Positive well nourished and well developed General Appearance ED: well developed and NAD HEENT Reports TM's clear and moist mucous membranes normocephalic and atraumatic; Negative for trauma or tenderness Tympanic Membrane ED: Yes TM's clear Eyes PERRL and EOMs intact bilaterally General Eye ED: Negative for pale conjunctiva or scleral icterus Neck no lymphadenopathy, supple and no JVD General: Negative for tenderness Chest Wall Negative for inspection of chest normal or palpation of chest normal Chest Narrative: Tenderness palpation over the right chest wall in the mid axillary line. She has ecchymosis and bruising to the right flank down to the right hip. No significant abdominal tenderness on exam. Chest: Negative for tenderness Resp normal respiratory effort and clear to auscultation bilaterally Resp Narrative: Patient with tachypnea. Rales noted in the right base. Some faint expiratory wheezes bilaterally with slightly diminished breath sounds bilaterally. Effort and Inspection: Negative for respiratory distress or pain with movement Auscultation: rales; Negative for rhonchi, wheezes or diminished lung sounds Cardio regular rhythm, S1 normal heart sound, S2 normal heart sound and no murmurs; Negative for regular rate Rate: tachycardic Peripheral Pulses: pulses 2+ throughout GI normal to inspection, nondistended, normoactive bowel sounds, soft to palpation, non-tender, non-distended and no masses GI Narrative: Ecchymosis and bruising noted along the right flank to the right hip. No significant abdominal tenderness on exam. There is no rebound, rigidity, or peritoneal signs Back/Spine no CVA tenderness and no thoracic nor lumbar tenderness Extremity normal to inspection General Extremety ED: Negative for edema General Extremity: Negative for edema Neuro oriented x3, CN's II-XII intact bilaterally, no sensory deficits noted and gait normal Sensorium / Orientation: awake, alert, oriented to person, oriented to place and oriented to time Motor Exam: strength 5/5 throughout and strength abnormal Psych mental status grossly normal Skin no rashes or lesions noted and no wounds MDM MDM MDM Narrative Medical decision making narrative: Patient presented with ongoing right sided pain from fall over a week ago. Initially was seen in the emergency department by myself and had a CT of her chest that at that time did not show any rib fractures or pneumothorax. She complains of a cough that developed over the last 2 days. She describes ongoing significant pain and she at times has been increasing her O2 at home to 5 L. She has had low-grade temp at home now. Patient presented tachycardic and tachypneic and hypoxic on her 2 L. IV line established. She was medicated with morphine and Zofran for pain. CBC with differential obtained showed a white count of 4.8 with hemoglobin of 10 and platelet count of 163. Chemistries unremarkable. BUN was 33 and creatinine 2.09. I repeated the CTA of the chest and added abdomen pelvis with IV contrast to evaluate further as she did have some rales in the right base and was concerned about pneumonia or other complication from the fall. CT was read by radiology as atelectasis of the right lower lobe. Small pleural effusions bilaterally. No rib fractures were noted. No significant abnormalities in the abdomen. Patient was given a DuoNeb aerosol and Solu-Medrol and was started on Levaquin as clinically I suspect and am concerned about pneumonia. We discussed with hospitalist to evaluate patient for admission Lab Data Attestation: I reviewed the patient's lab results. Labs: Laboratory Results - last 24 hr 04/18/25 09:35 WBC 4.8 RBC 3.34 L Hgb 10.0 L Hct 32.6 L MCV 97.6 MCH 29.9 MCHC 30.7 L RDW Std Deviation 50.1 H RDW Coeff of Jaun 14.3 Plt Count 163 MPV 9.8 Immature Gran % (Auto) 1.400 H Neut % (Auto) 78.4 H Lymph % (Auto) 13.2 L Lea % (Auto) 6.4 Eos % (Auto) 0.4 Baso % (Auto) 0.2 Absolute Neuts (auto) 3.8 Absolute Lymphs (auto) 0.64 L Nucleated RBC % 0 Sodium 142 Potassium 3.2 L Chloride 103 Carbon Dioxide 26.1 Anion Gap 13 BUN 33 H Creatinine 2.09 H Estim Creat Clear Calc 35.08 L Est GFR (MDRD) Non-Af 26 L BUN/Creatinine Ratio 15.7 Glucose 86 Calcium 8.8 Radiography Diagnostic Testing: Clinical Impression(s) from Imaging Studies Chest/Abdomen/Pelvis CT 04/18/25 09:29 IMPRESSION: No acute pulmonary process, bibasilar atelectasis with small pleural effusions. Follow-up recommended to ensure resolution. No demonstrated rib fracture, pleural thickening or pneumothorax Fatty liver, no discrete lesion Simple cortical cysts in the kidneys, no specific follow-up Retained stool in the colon which may be impacted Degenerative bony changes surgical hardware in the lower lumbar spine, and bilateral replaced hip joints free of complication Reading Location: [id number] Discharge Plan Dx/Rx/DC Orders Clinical Impression: Respiratory failure, Pneumonia, Chest wall contusion Disposition Disposition: Acute Care Hospital [facility]
[2025-04-18] MEDS: 0.9% Normal Saline (1000mL) 1,000 ML 1000 ML IV (09:44)
--- OUTSIDE RECORDS SUMMARY | 2025-04-18 09:55 | XMS RPT_ITS | CCD ---
Author Organization [facility] Care Team Providers Care Nondestructive Tester Name Role Phone ANEL PREM N Unavailable Unavailable GRIS TAMULAM N Unavailable Unavailable BERNARDINO MORAN Unavailable Unavailable Elizabeth Givens Unavailable Bernardino Moran Primary Care Provider [phone] Bernardino Moran Primary Care Provider BERNARDINO MORAN Primary Care Unavailable BERNARDINO MORAN Referring Unavailable DESHAWN, ROB Admitting Unavailable DESHAWN, ROB Attending Unavailable EMMANUEL, VITALY Attending Unavailable SELF, REFERRED Referring Unavailable BERNARDINO MORAN Primary Care Unavailable DESHAWN, ROB Admitting Unavailable Dr. Bernardino Moran Primary Care Provider Dr. Torey Mercedes Emergency Provider Dr. Beck Lee Admit Provider Unavailable Dr. Beck Lee Attending Provider Unavailable Dr. Beck Lee Other Provider Unavailable Dr. Josh Vazquez Other Provider Dr. Thong Sultana Attending Provider Dr. Thong Sultana Other Provider Dr. Bernardino Moran Primary Care Provider Dr. Junior Salter Emergency Provider Dr. Mckenzie Austin Admit Provider Dr. Mckenzie Austin Attending Provider Dr. Mckenzie Austin Other Provider Dr. Ami Vega Attending Provider Dr. Ami Vega Other Provider Dr. Bernardino Moran Primary Care Provider Dr. Bernardino Moran Referring Provider [phone] Ranulfo ADEN, PA Elizabeth Pope Attending Provider Dr. Mau Poe Attending Provider Dr. Mohsen Melgar Emergency Provider Dr. Mckenzie Austin Admit Provider Dr. Mckenzie Austin Attending Provider Dr. Mckenzie Austin Other Provider Dean CLINTON, Bernardino Weiss Primary Care Provider Dean CLINTON, Bernardino Weiss Primary Care Provider Dr. Bernardino Moran Primary Care Provider Dr. Bernardino Moran Referring Provider Rodrick PA, PA Grayson Attending Provider [phone] Rodrick PA, PA Grayson Attending Provider [phone] Sam Padron Attending Provider Dr. Sam Padron Referring Provider Dr. Sam Padron Other Provider Dr. Pablo Maurer Attending Provider [phone] Dr. Bernardino Moran Primary Care Provider Dr. Bernardino Moran Referring Provider Rodrick PA, PA Grayson Attending Provider [phone] Sam Padron Attending Provider Dr. Sam Padron Referring Provider Dr. Sam Padron Other Provider Dr. Pablo Maurer Attending Provider Dr. Bernardino Moran Primary Care Provider Dr. Bernardino Moran Referring Provider Bernardino Moran Primary Care Provider JOSH CARO Referring Unavailable BERNARDINO MORAN Primary Care Unavailabl e ANNIKA COLLADO Attending Unavailable Dr. Bernardino Moran Primary Care Provider Dr. Sam Padron Referring Provider Dr. Sam Padron Other Provider Dr. Pablo Maurer Attending Provider Dr. Bernardino Moran Referring Provider Yoni FACULTY HEAD, FACULTY HEAD-C Patricia Attending Provider Bernardino Moran MD Primary Care Provider Dr. Bernardino Moran Primary Care Provider Dr. Bernardino Moran Referring Provider Yoni FACULTY HEAD, FACULTY HEAD-C Patricia Attending Provider Unavailable Primary Care Provider Unavailabl e BERNARDINO MORAN Primary Care Unavailable BERNARDINO MORAN Attending Unavailable BERNARDINO MORAN Primary Care Unavailable BERNARDINO MORAN Attending Unavailable BRANDON BEAN Attending Unavailable BERNARDINO MORAN Primary Care Unavailable LETICIA HETCOR Consulting Unavailable BRANDON BEAN Attending Unavailable BRANDON BEAN Admitting Unavailable BERNARDINO MORAN Primary Care Unavailable TESSIE POLANCO Consulting Unavailable Bernardino Moran Primary Care Provider Corin Mariscal MD Primary Care Provider Dr. Kendall Dsouza MD Attending Provider Dr. Kendall Dsouza MD Emergency Provider [phone] Dr. Junior Salter MD Emergency Provider Dr. Beck Ervin DO Admit Provider Unavail able Dr. Beck Ervin DO Other Provider Unavail able Kayy CLINTON, Dr. Thong Bagley Attending Provider Dr. Thong Sultana MD Other Provider Corin Mariscal MD Attending Provider Corin Mariscal MD Referring Provider Mago BERMUDEZ, Dr. Lema Emergency Provider [phone] Geovanna CLINTON, Dr. Mckenzie Green Admit Provider Geovanna CILNTON, Dr. Mckenzie Green Attending Provider Geovanna CLINTON, Dr. Mckenzie Green Referring Provider Clinton CLINTON, Corin Primary Care Provider Meet CLINTON, Dr. Argueta Attending Provider Meet CLINTON, Dr. Argueta Emergency Provider Gaetano CLINTON, Dr. Pacheco Emergency Provider de Yaw BERMUDEZ, Dr. Vasquez Admit Provider Unavail able Ervin DO, Dr. Vasquez Other Provider Unavail able Kayy CLINTON, Dr. Thong Bagley Attending Provider Kayy CLINTON, Dr. Thong Bagley Other Provider Corin Mariscal MD Attending Provider Corin Mariscal MD Referring Provider Mago BERMUDEZ, Dr. Lema Emergency Provider [phone] Geovanna CLINTON, Dr. Mckenzie Green Admit Provider Geovanna CLINTON, Dr. Mckenzie Green Attending Provider Geovanna CLINTON, Dr. Mckenzie Green Other Provider Rosa CLINTON, Dr. Vasquez Attending Provider Unavaila ble Rosa CLINTON, Dr. Vasquez Other Provider Unavailable Ashvin Bedolla MD Other Provider Unavailable Elva CLINTON, Dr. Marcos Other Provider Porsche Michelle MD Other Provider Unavailable Dr. Debora Torrez DO Other Provider [phone] Ninoska CLINTON, Dr. Figueredo Other Provider Dr. Tray Beckett MD Other Provider Vito CLINTON, Dr. Ryder Other Provider Lynn CLINTON, Dr. Irwin Other Provider Dr. Vickie Nam MD Other Provider Nuno CLINTON, Dr. Herrmann Other Provider Sona CLINTON, Ninoska Other Provider Gulshan CLINTON, Dr. Espinoza Other Provider Zheng CLINTON, Dr. Guerra Other Provider Musa CLINTON, Dr. Aguero Other Provider Jalen CLINTON, Dr. Eboni Harvey Other Provider Joni CLINTON, Dr. León Other Provider Randy CLINTON, Dr. Zavala Other Provider Ayesha CLINTON, Dr. Stovall Other Provider [phone] Peterson CLINTON, Dr. Mobley Other Provider Unavailable Alba CLINTON, Yousef Other Provider Unavailable Geovanna CLINTON, Dr. Mckenzie Green Referring Provider Dr. Vamsi Mendoza DO Other Provider Dr. Vamsi Mendoza DO Attending Provider Dr. Junior Salter MD Attending Provider Clinton CLINTON, Corin Primary Care Provider CLINTON, CHALON Primary Care Unavailable MASCI, JOSE A Attending Unavailable CLINTON, CHALON Primary Care Unavailable MASCI, JOSE A Referring Unavailable Dr. Armen Gonzales DO Emergency Provider Dr. Kaitlyn Winkler DO Attending Provider Dr. Kaitlyn Winkler DO Admit Provider Dr. Kaitlyn Winkler DO Other Provider Dr. Blayne Santana DO Attending Provider Dr. Blayne Santana DO Other Provider Clinton, Chalon Primary Care Unavailable Clinton, Chalon Referring Unavailable Abrahamek Elizabeth A Attending Unavailable Nick, Addison Chi Primary Care Unavailable Nick, Addison Chi Attending Unavailable Nick, Addison Chi Primary Care Unavailable Nick, Addison Chi Attending Unavailable Nick, Addison Chi Referring Unavailable Nick, Addison Chi Primary Care Unavailable Nick, Addison Chi Attending Unavailable Clinton, Chalon Primary Care Unavailable Friend, Johnathon Attending Unavailable Clinton, Chalon Referring Unavailable Nick, Addison Chi Primary Care Unavailable Friend, Johnathon Referring Unavailable Friend, Johnathon Attending Unavailable Clinton, Chalon Primary Care Unavailable Beck Ervin Admitting Unavailable Thong Sultana Attending Unavailable Beck Ervin Consulting Unavailable Clinton, Chalon Primary Care Unavailable Thong Sultana Attending Unavailable White, Mckenzie L Referring Unavailable White, Mckenzie L Consulting Unavailable White, Mckenzie L Admitting Unavailable Ashvin Bedolla Consulting Unavailable AdeHemant herrera Consulting Unavailable Hinduryan, Porsche Consulting Unavailable Shan, Debora Consulting Unavailable Zha, Bea Consulting Unavailable Sujit, Tray Consulting Unavailable Vito, Britni Consulting Unavailable BitDc dupont Consulting Unavailable Vickie Nam Consulting Unavailable Montez Reina Consulting Unavailable Ninoska Magallanes Consulting Unavailable Alexis Gaffney Consulting Unavailable Mari Calzada Consulting Unavailable RidhaLaci Consulting Unavailable Zaghlouleh, Mhd Wes Consulting UnavailMau Del Rosario Consulting Unavailable Padilla, Ramhumera Consulting Unavailable Wilman Hodge Consulting Unavailable Leandra Winkler Consulting Unavailable Evelia Willis Consulting Unavailable Beck Lee Consulting Unavailable Vamsi Mendoza Consulting Unavailable Clinton, Chalon Primary Care Unavailable Clinton, Chalon Attending Unavailable Clinton, Chalon Referring Unavailable Clinton, Chalon Primary Care Unavailable Clinton, Chalon Attending Unavailable Clinton, Chalon Referring Unavailable Nick, Addison Chi Primary Care Unavailable Salter, Junior Referring Unavailable Salter, Junior Attending Unavailable Nick, Addison Chi Primary Care Unavailable Ungur, Remus Attending Unavailable Salter, Junior Attending Unavailable Clinton, Chalon Primary Care Unavailable Clinton, Chalon Primary Care Unavailable Kendall Dsouza Attending Unavailable Nick, Addison Chi Primary Care Unavailable Nick, Addison Chi Attending Unavailable Nick, Addison Chi Referring Unavailable Clinton, Chalon Primary Care Unavailable Nick, Addison Chi Attending Unavailable Nick, Addison Chi Referring Unavailable Clinton, Chalon Primary Care Unavailable Clinton, Chalon Attending Unavailable Clinton, Chalon Referring Unavailable Clinton, Chalon Primary Care Unavailable Clinton, Chalon Referring Unavailable Clinton, Chalon Attending Unavailable Clinton, Chalon Referring Unavailable Clinton, Chalon Attending Unavailable Clinton, Chalon Primary Care Unavailable Clinton, Chalon Referring Unavailable Clinton, Chalon Attending Unavailable Clinton, Chalon Primary Care Unavailable Clinton, Chalon Primary Care Unavailable Kaitlyn Winkler Admitting Unavailable Blayne Santana Attending Unavailable Kaitlyn Winkler Consulting Unavailable Clinton, Chalon Primary Care Unavailable Thong Sultana Attending Unavailable White, Mckenzie L Consulting Unavailable White, Mckenzie L Referring Unavailable White, Mckenzie L Admitting Unavailable Ashvin Bedolla Consulting Unavailable Adeli, Amir Consulting Unavailable Hinduja, Porsche Consulting Unavailable Shan, Debora Consulting Unavailable Zha, Bea Consulting Unavailable Sujit, Tray Consulting Unavailable Vito, Britni Consulting Unavailable Bittaaline, Dc Consulting Unavailable Vickie Nam Consulting Unavailable Montez Reina Consulting Unavailable Ninoska Magallanes Consulting Unavailable Alexis Gaffney Consulting Unavailable Mari Calzada Consulting Unavailable Laci Vigil Consulting Unavailable Eboni Rao Consulting UnavailMau Del Rosario Consulting Unavailable PadillaLucas Consulting Unavailable Wilman Hodge Consulting Unavailable Leandra Winkler Consulting Unavailable Evelia Willis Consulting Unavailable Beck Lee Consulting Unavailable Vamsi Mendoza Consulting Unavailable Thong Sultana Consulting Unavailable Clinton, Chalon Primary Care Unavailable Clinton, Chalon Attending Unavailable Clinton, Chalon Referring Unavailable Clinton, Chalon Primary Care Unavailable Kaitlyn Winkler Attending Unavailable Kaitlyn Winkler Consulting Unavailable Peterson Kaitlyn Admitting Unavailable Clinton, Chalon Primary Care Unavailable Blayne Santana Attending Unavailable Blayne Santana Consulting Unavailable Clinton, Chalon Primary Care Unavailable Beck Ervin Attending Unavailable Beck Ervin Admitting Unavailable Beck Ervin Consulting Unavailable Thong Sultana Consulting Unavailable Clinton, Chalon Primary Care Unavailable Friend, Johnathon Attending Unavailable Nick, Addison Chi Admitting Unavailable Nick, Addison Chi Referring Unavailable Manjit Mcdowell Consulting Unavailable Nick, Addison Chi Consulting Unavailable Elizabeth Dutta Attending Unavailable Clinton, Chalon Primary Care Unavailable Joce, Johnathon Consulting Unavailable Clinton, Chalon Referring Unavailable Friend, Johnathon Attending Unavailable Clinton, Chalon Referring Unavailable Clinton, Chalon Primary Care Unavailable Robotham, Josefa Attending Unavailable Clinton, Chalon Primary Care Unavailable Rios Robyn Attending Unavailable Nick, Addison Chi Referring Unavailable Nick, Addison Chi Primary Care Unavailable Rios, Robyn Attending Unavailable Nick, Addison Chi Referring Unavailable Clinton, Chalon Primary Care Unavailable White, Mckenzie L Consulting Unavailable White, Mckenzie L Attending Unavailable White, Mckenzie L Referring Unavailable White, Mckenzie L Admitting Unavailable Thong Sultana Attending Unavailable Clinton, Chalon Primary Care Unavailable Clinton, Chalon Referring Unavailable Robotham, Josefa Attending Unavailable Beck Lee Attending Unavailable Beck Lee Consulting Unavailable Ashvin Bedolla Consulting Unavailable AdeHemant herrera Consulting Unavailable Hinduryan, Porsche Consulting Unavailable Debora Torrez Consulting Unavailable Bea Xiao Consulting Unavailable Sujit, Tray Consulting Unavailable VitoBritni mireles Consulting Unavailable BitDc dupont Consulting Unavailable Vickie Nam Consulting Unavailable Montez Reina Consulting Unavailable Ninoska Magallanes Consulting Unavailable Alexis Gaffney Consulting Unavailable Mari Calzada Consulting Unavailable RidhaLaci Consulting Unavailable Zaghlouleh, Mhd Wes Consulting UnavailMau Del Rosario Consulting Unavailable Padilla, Rami Consulting Unavailable Wilman Hodge Consulting Unavailable Leandra Winkler Consulting Unavailable Evelia Willis Consulting Unavailable Vamsi Mendoza Attending Unavailable Nick, Addison Chi Primary Care Unavailable Johnathon Hobson Attending Unavailable Nick, Addison Chi Referring Unavailable Clinton, Chalon Primary Care Unavailable Nick, Addison Chi Attending Unavailable Manjit Mcdowell Consulting Unavailable Nick, Addison Chi Admitting Unavailable Nick, Addison Chi Referring Unavailable Allergies Allergy Classification Reported Allergen(s) Allergy Type Date of Onset Reaction(s) Facility (20 sources) Acetaminophen / oxyCODONE; Translations: [OXYCODONE-ACETAM INOPHEN] Drug Allergy 5 Itching [facility] Repository (9 sources) Dust; Translations: [DUST] Propensity to adverse reactions (disorder) 4 Other: See Comments [facility] Repository (20 sources) Penicillins; Translations: [PENICILLINS] Propensity to adverse reactions (disorder) 6 Hives [facility] Repository (8 sources) Seasonal allergy; Translations: [SEASONAL ALLERGIES] Propensity to adverse reactions (disorder) 4 Other: See Comments [facility] Repository (8 sources) CAT HAIR STANDARDIZED ALLERGENIC EXTRACT; Translations: [CAT HAIR STANDARDIZED ALLERGENIC EXTRACT] Propensity to adverse reactions (disorder) 8 Other: See Comments [facility] Repository (6 sources) bee pollen Propensity to adverse reactions to drug 8 [place], [place] (20 sources) Cat Hair Extract Drug Allergy 8 Other (See Comments) [place] (6 sources) MITE EXTRACT Drug Allergy 8 [place] (2 sources) Seasonal allergy Allergy to substance 2 itchy eyes [facility] Work Phone: (16 sources) house dust allergenic extract Drug Allergy 2 ITCHY EYES [facility] (16 sources) Seasonal Allergies: Uncoded; Translations: [Seasonal Allergies: Uncoded] Allergy to substance 2 ITCHY EYES [facility] (20 sources) beta Sitosterol / ZINC CITRATE Drug Allergy 2 [facility] (20 sources) House dust mite Allergy to substance 9 Unknown [facility] (20 sources) Pollen Propensity to adverse reactions 8 [facility] (10 sources) Cat Hair Extract Allergy to substance 8 [facility] (20 sources) Bee pollen Propensity to adverse reactions 8 [facility] (2 sources) Opioids - Morphine Analogues Propensity to adverse reactions 5 Confusion [facility] Comment on above: Increased confusion with narcotic use (1 source) house dust allergenic extract Drug Allergy 5 [facility] Repository (1 source) Opioids - Morphine Analogues Drug allergy (disorder) 5 [facility] Repository Medications Current Medications Medication Drug Class(es) Dates Sig (Normalized) Sig (Original) acetaminophen 325 mg oral tablet (9 sources) Start: 11-10-2024 Start: 08-09-2023 End: 08-14-2023 take 1 tablet by mouth every six hours 650 mg, Oral, Every 6 hours, First dose on Sun08/09/23 at 1430, Phase II/On Unit, Maximum dose of acetaminophen is 4000 mg from all sources in 24 hours. Start: 08-09-2023 End: 08-09-2023 acetaminophen (Tylenol) tabl et 1,000 mg Start: 08-25-2020 acetaminophen (TYLENOL) tablet 1,000 mg Start: 08-24-2020 End: 08-24-2020 acetaminophen (TYLENOL) tabl et 650 mg Start: 08-24-2020 End: 08-24-2020 acetaminophen (TYLENOL) tabl et 1,000 mg Start: 10-24-2019 acetaminophen (TYLENOL) tablet 650 mg [id number] actuat albuter ol 0.09 mg/actuat metered dose inhaler (20 sources) beta2-Adrenergic Agonist Start: 07-17-2024 Start: 07-17-2024 Albuterol Sulf ate 90 mcg/actuation HFA aerosol inhaler Active 1 NMA INHALATION EVERY 6 HOURS as needed for shortness of breath or wheezing 6.7 July 17, 2024 12:00am Start: 03-05-2023 End: 07-13-2024 Start: 03-05-2023 End: 07-13-2024 Albuterol Sulfate 90 mcg/act uation HFA aerosol inhaler Discontinued 2 NMA INHALATION EVERY 6 HOURS as needed for SHORTNESS OF BREATH/WHEEZING 8.5 March 04, 2023 11:00pm July 13, 2024 4:00pm Start: 03-05-2023 take 1 puff(s) by in halation every six hours Albuterol Sulfate Active 2 PUFF INHALATION EVERY 6 HOURS 8.5 March 05, 2023 12:00am Start: 05-15-2022 End: 05-15-2023 take 2 puff(s) by inhalation every four hours as needed for wheezing albuterol (Ventolin HFA) 108 (90 Base) MCG/ACT inhaler Indications: Chronic hypoxemic respiratory failure (HCC) Inhale 2 puffs every 4 hours as needed for wheezing or shortness of breath. 8 g 5 05/15/2022 Active Start: 08-16-2016 End: 08-14-2023 take 2 puff(s) by inhalation every four hours as needed for wheezing albuterol HFA (VENTOLIN HFA) 90 mcg/actuation inhaler Indications: Acute bronchitis, unspecified organism , Mild persistent asthma with acute exacerbation (HCC) Inhale 2 Puffs as instructed every 4 hours as needed for Wheezing/Shortness of Breath. 1 Inhaler 08/16/2016 Active Start: 08-16-2016 albuterol sulf ate HFA 108 (90 Base) MCG/ACT inhaler Inhale 2 puffs into the lungs 0 08/16/2016 Active Comment on above: Inhale 2 Puffs as in structed every 4 hours as needed for Wheezing/Shortness of Breath. albuterol 0.833 mg/ml / ipratropium bromide 0.167 mg/ml inhalant solution (2 sources) Anticholinergic, beta2-Adrenergic Agonist Start: End: ipratropium-albu terol (DUONEB) nebulizer solution 1 ampule albuterol sulfate HFA 108 (90 Base) MCG/ACT inhaler 2 puff (2 sources) Start: take 2 puff(s) by inhalation four times daily 2 puff, Inhalation, 4 TIMES DAILY, First dose on Sun10/24/19 at 2145 Start: 10-24-2019 End: 10-24-2019 albuterol sulfate HFA 108 (9 0 Base) MCG/ACT inhaler 2 puff ALPRAZolam 0.5 mg oral table t (13 sources) Benzodiazepine Start: 01-28-2024 End: 11-10-2024 Start: 01-28-2024 Start: 08-09-2023 End: 08-09-2023 ALPRAZolam (Xanax) disintegr ating tablet 0.25 mg Start: 06-14-2020 End: 07-14-2020 take 1 tablet by mouth three times daily as needed for anxiety ALPRAZolam (XANAX) 1 MG tablet Indications: Anxiety Take 1 tablet by mouth 3 times daily as needed for Anxiety for up to 30 days. 60 tablet 0 06/14/2020 07/14/2020 Discontinued (Stop Taking at Discharge) azithromycin 250 mg oral tablet (2 sources) Macrolide Antimicrobial Start: 06-07-2022 azithromycin (Zithromax Z-Guevara) 250 MG tablet Take as directed 6 tablet 0 06/07/2022 Active carvedilol 3.125 mg oral tablet (20 sources) alpha-Adrenergic Roro, beta-Adrenergic Roro Start: 07-20-2022 Start: 07-20-2022 End: 08-14-2023 Comment on above: Take 3.125 mg by rachid th two times a day with meals. cefadroxil 500 mg oral capsule (6 sources) Cephalosporin Antibacterial Start: 08-09-19 End: 08-21-19 take 1 capsule by mouth twice daily cefadroxil (Duricef) 500 MG capsule Take 1 capsule (500 mg) by mouth 2 times daily for 10 days. 20 capsule 0 08/11/2023 08/21/2023 Active cyclobenzaprine hydrochloride 5 mg oral tablet (20 sources) Muscle Relaxant Start: 08-10-19 Start: 07-15-2024 End: 07-15-2024 Start: 04-17-2022 End: 01-04-2023 docusate sodium 100 mg oral capsule (13 sources) Start: 08-09-2023 End: 08-21-2023 take 1 capsule by mouth twice daily docusate sodium (Colace) 100 MG capsule Take 1 capsule (100 mg) by mouth 2 times daily for 10 days. 20 capsule 0 08/11/2023 08/21/2023 Active Start: 10-18-2021 End: 06-07-2022 take 1 capsule by mouth every twenty-four hours as needed Docusate Sodium (DSS) 100 MG capsule Take 1 capsule by mouth Daily as needed. 0 10/18/2021 06/07/2022 Discontinued (Therapy completed) Start: 04-07-2021 docusate sodiu m (COLACE) 100 mg capsule Take 2 capsules by mouth as needed. 04/07/2021 Active Comment on above: 2 capsules as needed . 0.4 ml enoxaparin sodium 100 mg/ml prefilled syringe (2 sources) Low Molecular Weight Heparin Start: 08-24-2020 enoxaparin (LOVENOX) injection 40 mg Start: 10-25-2019 inject 40 mg by subc utaneous injection once daily 40 mg, Subcutaneous, DAILY, First dose on 10/25/19 at 0900 ergocalciferol 1.25 mg oral capsule (14 sources) Provitamin D2 Compound Start: 07-15-2024 Start: 07-12-2023 End: 07-13-2024 ferrous sulfate 325 mg oral tablet (1 source) Start: 08-09-2024 take 1 tablet by mouth once daily Ferrous Sulfate (Iron) 325 mg (65 mg iron) tablet Active 325 mg PO daily August 09, 2024 12:00am FLUoxetine 40 mg oral capsule (20 sources) Serotonin Reuptake Inhibitor Start: 10-09-2022 End: 03-19-2023 Start: 05-08-2022 take 1 capsule by mo uth once daily FLUoxetine (PROzac) 40 MG capsule Take 40 mg by mouth daily. 0 05/08/2022 Active Start: 05-12-2021 take 4 capsules by m outh once daily FLUoxetine (PROZAC) 10 mg capsule Take 40 mg by mouth once daily. 05/12/2021 Active Start: 05-12-2021 take 1 capsule by mo uth once daily FLUoxetine (PROZAC) 10 mg capsule Take 10 mg by mouth once daily. 05/12/2021 Active Start: 01-14-2021 End: 06-29-2023 Start: 01-14-2021 End: 06-29-2023 take 2 capsules by mouth once daily Fluoxetine 20 mg Capsule Discontinued 40 mg PO DAILY January 13, 2021 11:00pm June 29, 2023 8:44am Start: 01-14-2021 End: 06-29-2023 take 40 mg by mouth once daily Fluoxetine Discontinued 40 MG PO DAILY January 14, 2021 12:00am June 29, 2023 9:44am Start: 01-14-2021 take 20 mg by mouth once daily Fluoxetine Active 20 MG PO DAILY January 13, 2021 11:00pm Start: 08-25-2020 FLUoxetine (OH OZAC) capsule 30 mg Start: 07-15-2020 End: 08-24-2020 FLUoxetine (PROZAC) capsule 10 mg Start: 07-14-2020 End: 08-24-2020 take 20 mg by mouth once daily 20 mg, Oral, DAILY, Fir st dose on Sun08/24/20 at 0930 Start: 05-10-2020 End: 07-14-2020 take 2 tablets by mouth once daily FLUoxetine (PROZAC) 20 MG tablet Take 2 tablets by mouth daily 60 tablet 2 07/06/2020 07/14/2020 Discontinued (Stop Taking at Discharge) Comment on above: Take 10 mg by mouth once daily. 60 actuat formoterol fumarate 0.005 mg/actuat / mometasone furoate 0.1 mg/actuat metered dose inhaler (20 sources) Corticosteroid, beta2-Adrenergic Agonist Start: 05-07-2023 take 2 puff(s) by mouth once daily in the morning, then take 2 puff(s) by mouth once daily in the evening Dulera 100-5 MCG/ACT inhaler Indications: Chronic hypoxemic respiratory failure (HCC) INHALE 2 PUFFS BY MOUTH EVERY MORNING AND INHALE 2 PUFFS EVERY EVENING 13 g 5 05/07/2023 Active Start: 11-17-2022 take 2 puff(s) by mo uth once daily in the morning, then take 2 puff(s) by mouth once daily in the evening Dulera 100-5 MCG/ACT inhaler Indications: Chronic hypoxemic respiratory failure (HCC) INHALE 2 PUFFS BY MOUTH EVERY MORNING AND INHALE 2 PUFFS EVERY EVENING 13 g 5 11/17/2022 Active Start: 05-15-2022 End: 11-17-2022 take 2 puff(s) by inhalation in the morning mometasone-formoterol (Dulera 100) 100-5 MCG/ACT inhaler Indications: Chronic hypoxemic respiratory failure (CMS/HCC) (HCC) Inhale 2 puffs in the morning and 2 puffs in the evening. 13 g 5 05/15/2022 11/17/2022 Discontinued Start: 11-11-2019 End: 08-14-2023 take 2 puff(s) by inhalation twice daily mometasone-formoterol (DULERA) 100-5 mcg/actuation inhaler Inhale 2 Puffs as instructed twice daily. 02/02/2020 Active Comment on above: Inhale 2 Puffs as in structed twice daily. furosemide 40 mg oral tablet (20 sources) Loop Diuretic Start: 08-24-2020 take 80 mg by mouth once daily 80 mg, Oral, DAILY, First dose on Sun08/24/20 at 0930 Start: 03-08-2020 End: 06-29-2020 take 2 tablets by mouth once daily furosemide (LASIX) 40 MG tablet Take 2 tablets by mouth daily 60 tablet 2 06/29/2020 Suspended Start: 10-24-2019 40 mg, Intrave nous, 2 TIMES DAILY, First dose on Sun10/24/19 at 2145, For 2 days Start: 10-20-2019 End: 11-05-2019 Start: 10-01-2019 End: 10-23-2019 take 1 tablet by mouth once daily Furosemide 40 MG tablet Discontinued 40 mg PO DAILY October 01, 2019 12:39pm October 23, 2019 11:49am Start: 08-12-2019 End: 10-01-2019 Furosemide 40 mg tablet Disc ontinued 20 mg PO DAILY August 12, 2019 10:35am October 01, 2019 12:39pm Start: 08-12-2019 End: 10-01-2019 take 20 mg by mouth once daily Furosemide Discontinued 20 MG PO DAILY August 12, 2019 11:35am October 01, 2019 1:39pm Start: 05-12-2019 End: 10-23-2019 Start: 05-12-2019 End: 08-12-2019 take 1 tablet by mouth once daily Furosemide 40 mg tablet Discontinued 40 mg PO DAILY May 22, 2019 11:38am August 12, 2019 10:36am linaclotide 0.29 mg oral capsule (6 sources) Guanylate Cyclase-C Agonist Start: 01-28-2024 Magnesium (1 source) Start: 08-09-2024 take 1 tablet by mouth once daily Magnesium 200 mg tablet Active 200 mg PO DAILY August 09, 2024 12:00am melatonin 10 mg oral tablet (12 sources) Start: 07-16-2022 Start: 07-16-2022 take 1 tablet by mouth at bedt rhoda Melatonin 10 mg Tablet Active 10 mg PO AT BEDTIME July 16, 2022 12:00am Mometasone-Formoterol (Duler a) 100-5 mcg/actuation HFA aerosol inhaler (6 sources) Start: 03-05-2023 Mometasone-For moterol (Dulera) 100-5 mcg/actuation HFA aerosol inhaler Active 2 NMA INHALATION TWICE A DAY March 04, 2023 11:00pm Start: 03-05-2023 take 1 puff(s) by in halation twice daily Mometasone-Formoterol (Dulera) 100-5 mcg/actuation HFA aerosol inhaler Active 2 PUFF INHALATION TWICE A DAY March 04, 2023 11:00pm Start: 03-05-2023 take 1 puff(s) by in halation twice daily Mometasone-Formoterol (Dulera) 100-5 mcg/actuation HFA aerosol inhaler Active 2 PUFF INHALATION TWICE A DAY March 05, 2023 12:00am MOUNJARO 7.5 mg/0.5 mL pen injector (2 sources) Start: 10-10-2024 inject 7.5 mg by subcutaneous injection every week MOUNJARO 7.5 mg/0.5 mL pen injector Inject 7.5 mg subcutaneously one time a week. 10/10/2024 Active multivitamin 1 tablet (1 source) Start: 08-24-2020 multivitamin 1 tablet NON FORMULARY (20 sources) NON FORMULARY Bi pap machine Active NON FORMULARY Bi pap machine 0 Suspended NON FORMULARY Bi pap machine 0 Active 24 hr oxybutynin chloride 10 mg extended release oral tablet (8 sources) Cholinergic Muscarinic Antagonist Start: 07-18-2022 take 10 mg by mouth twice daily Oxybutynin Chloride Active 10 MG PO TWICE A DAY July 18, 2022 1:00am Start: 07-18-2022 take 10 mg by mouth once daily Oxybutynin Chloride Active 10 MG PO DAILY July 18, 2022 12:00am Start: 06-07-2022 take 1 tablet by rachid th once daily oxybutynin XL (Ditropan XL) 10 MG 24 hr tablet Take 1 tablet (10 mg) by mouth daily. Do not crush, chew, or split. 30 tablet 2 06/07/2022 Active Oxygen (16 sources) oxygen (O2) gas Inhale 3 L continuous. via nasal canula Active oxygen (O2) gas Inhale 3 L continuous. via nasal canula 0 Suspended oxygen (O2) gas Inhale 3 L continuous. via nasal canula 0 Active pantoprazole 40 mg delayed release oral tablet (20 sources) Proton Pump Inhibitor Start: 12-09-2018 End: 10-18-2023 Comment on above: Take 40 mg by mouth once daily. PARoxetine hydrochloride 20 mg oral tablet (17 sources) Serotonin Reuptake Inhibitor Start: 10-25-2019 take 40 mg by mouth once daily 40 mg, Oral, DAILY, First dose on 10/25/19 at 0900 Start: 10-01-2019 End: 10-23-2019 take 1 tablet by mouth at bedtime Paxil 1 TAB Discontinued 20 mg PO AT BEDTIME September 30, 2019 11:00pm October 23, 2019 11:49am Start: 09-25-2019 take 1 tablet by rachid th once daily PARoxetine (PAXIL) 40 MG tablet Take 1 tablet by mouth daily 30 tablet 5 09/25/2019 Active Start: 07-02-2019 take 1 tablet by rachid th once daily PARoxetine (PAXIL) 40 MG tablet Take 1 tablet by mouth daily 30 tablet 1 07/02/2019 Active Start: 02-12-2019 take 1 tablet by rachid th once daily PARoxetine (PAXIL) 20 MG tablet Take 1 tablet by mouth daily 30 tablet 0 02/12/2019 Active perflutren lipid microspheres (DEFINITY) injection 1.65 mg (1 source) Start: 10-24-2019 End: 10-27-2019 1.65 mg (1.5 mL), Intravenous, IMG ONCE PRN, Other, Suboptimal Echo Image, Starting Sun10/24/19 at 2117, For 72 hours Administer up to 1.65 mg via slow IVP for suboptimal echocardiogram enhancement. Ma y administer as concentrated dose or diluted in 8.5 mL of 0.9% sodium chloride for a total volume of 10 mL. May administer as divided doses to reach optimal image enhancement. rivastigmine 1.5 mg oral capsule (20 sources) Start: 05-08-2022 End: 06-29-2023 take 1 capsule by mouth twice daily rivastigmine (Exelon) 1.5 MG capsule TAKE 1 CAPSULE BY MOUTH TWICE A DAY 56 capsule 5 05/07/2023 Active Start: 11-29-2021 End: 06-07-2022 apply 1 dose transdermal route once daily rivastigmine (Exelon) 4.6 MG/24HR Place 1 patch on the skin daily. 0 11/29/2021 06/07/2022 Discontinued (Therapy completed) Start: 07-22-2021 Rivastigmine A ctive 4.6 MG TD DAILY July 22, 2021 8:22am Start: 06-08-2021 End: 06-14-2021 Start: 06-08-2021 End: 06-14-2021 Rivastigmine Discontinued 4. 6 MG TD DAILY June 08, 2021 1:00am June 14, 2021 11:49am Start: 05-20-2021 End: 10-15-2024 apply 1 dose transdermal route once daily rivastigmine (EXELON) 4.6 mg/24 hour patch 1 Patch once daily. 05/20/2021 10/15/2024 Discontinued Comment on above: 1 Patch once daily. rosuvastatin calcium 40 mg oral tablet (20 sources) HMG-CoA Reductase Inhibitor Start: 08-09-2023 End: 08-14-2023 take 40 mg by mouth once daily 40 mg, Oral, Nightly, First dose on [place] 08/09/23 at 2100, Phase II/On Unit Start: 08-24-2020 take 40 mg by mouth once daily 40 mg, Oral, NIGHTLY, First dose on Sun08/24/20 at 2100 Start: 10-24-2019 take 40 mg by mouth once daily 40 mg, Oral, NIGHTLY, First dose on Sun10/24/19 at 2145 Start: 11-12-2018 End: 10-18-2023 Comment on above: Take 40 mg by mouth once daily. Sennosides (Aminata-Guy) 8.6 mg tablet (2 sources) Start: take 1 tablet by mouth twice daily as needed for constipation Sennosides (Aminata-Guy) 8.6 mg tablet Active 8.6 mg PO TWICE DAILY NEEDED as needed for constipation August 09, 2024 12:00am Start: 01-28-2024 End: 07-13-2024 take 1 tablet by mouth twice daily as needed Sennosides (Aminata-Guy) 8.6 mg tablet Discontinued 8.6 mg PO TWICE DAILY NEEDED January 27, 2024 11:00pm July 13, 2024 4:01pm temazepam 15 mg oral capsule (20 sources) Benzodiazepine Start: 08-13-2023 End: 09-12-2023 take 1 capsule by mouth once daily temazepam (Restoril) 15 MG capsule Indications: Current moderate episode of major depressive disorder without prior episode (HCC) Take 1 capsule (15 mg) by mouth Nightly. 30 capsule 08/13/2023 Active Start: 07-12-2023 Start: 05-21-2020 End: 07-14-2020 take 1 capsule by mouth once daily as needed for sleep temazepam (RESTORIL) 30 MG capsule Indications: Primary insomnia Take 1 capsule by mouth nightly as needed for Sleep for up to 30 days. 30 capsule 0 06/18/2020 07/14/2020 Discontinued (Stop Taking at Discharge) Start: 01-17-2018 End: 10-26-2019 trospium chloride 20 mg oral tablet (20 sources) Cholinergic Muscarinic Antagonist Start: 01-28-2024 Start: 07-25-2022 End: 08-14-2023 take 1 tablet by mouth twice daily trospium (Sanctura) 20 MG tablet Take 1 tablet (20 mg) by mouth 2 times daily. 60 tablet 3 08/15/2022 Active vitamin b12 1 mg oral tablet (6 sources) Vitamin B12 Start: 08-09-2024 (20 sources) Start: 11-07-2024 Start: 08-09-2024 End: 11-10-2024 Start: 08-09-2024 Start: 01-28-2024 End: 07-13-2024 Start: 03-05-2023 Start: 03-05-2023 End: 07-13-2024 Start: 10-20-2019 End: 10-23-2019 Start: 10-01-2019 End: 10-23-2019 Start: 05-12-2019 End: 10-20-2019 Start: 05-12-2019 End: 05-12-2019 Completed/Discontinued Medications Medication Drug Class(es) Dates Sig (Normalized) Sig (Original) acetaminophen 325 mg / HYDROcodone bitartrate 5 mg oral tablet (6 sources) Opioid Agonist Start: 07-13-2024 End: 07-15-2024 Start: 07-13-2024 End: 07-15-2024 Hydrocodone-Acetaminophen 5- 325 mg tablet Discontinued 1 {tbl} PO EVERY 6 HOURS as needed for pain 03 10July 13, 2024 July 15, 2024 10:32pm acetaminophen 325 mg / oxyCODONE hydrochloride 5 mg oral tablet (20 sources) Opioid Agonist Start: 08-21-2023 End: 08-26-2023 take 1 tablet by mouth every six hours as needed for pain and pain, then take 2 tablets by mouth every six hours as needed for pain and pain Oxycodone-Acetaminophen 5-325 mg tablet Discontinued 1 {tbl} PO As Directed as needed for pain 30 5 August 21, 2023 August 24, 2023 11:00pm August 25, 2023 11:05pm 1 tab p.o. every 6 hrs for mild-mod pain, 2 tabs every 6 hrs for mod-severe pain Start: 08-18-2023 End: 07-13-2024 Start: 08-18-2023 End: 07-13-2024 take 1 tablet by mouth every hour as needed Oxycodone-Acetaminophen (Percocet) 5-325 mg tablet Discontinued 0 .ROUTE .COMPLEX as needed for pain 12 3 August 18, 2023 July 13, 2024 4:01pm 1 TAB orally as needed ;1 TAB orally as needed q4-q6 hours Start: 08-09-2023 End: 08-20-2023 take 1 tablet by mouth every four hours as needed for pain oxyCODONE-acetaminophen (Percocet) 5-325 MG tablet Indications: Lumbar radiculopathy Take 1 tablet by mouth every 4 hours as needed for severe pain (7-10) for up to 7 days. 28 tablet 0 08/11/2023 08/13/2023 Discontinued albuterol sulfate HFA 108 (90 Base) MCG/ACT inhaler (3 sources) Start: 08-16-2016 take 2 puff(s) by inhalation every six hours as needed for wheezing albuterol sulfate HFA 108 (90 Base) MCG/ACT inhaler Inhale 2 puffs into the lungs every 6 hours as needed for Wheezing or Shortness of Breath 0 08/16/2016 Suspended Start: 08-16-2016 take 2 puff(s) by in halation every six hours as needed for wheezing albuterol sulfate HFA 108 (90 Base) MCG/ACT inhaler Inhale 2 puffs into the lungs every 6 hours as needed for Wheezing or Shortness of Breath 0 08/16/2016 Active Start: 08-16-2016 albuterol sulf ate HFA 108 (90 Base) MCG/ACT inhaler Inhale 2 puffs into the lungs 0 08/16/2016 Active apixaban (5 sources) Factor Xa Inhibitor Start: 08-17-2021 End: 10-15-2024 take 2 tablets by mouth twice daily, then take 1 tablet by mouth twice daily apixaban (ELIQUIS) 5 mg (74 tabs) Indications: Thrombocytopenia, secondary , Encounter for screening for human immunodeficiency virus (HIV) , Acute deep vein thrombosis (DVT) of right peroneal vein (HCC) Take 2 tablets (10 mg) by mouth twice daily for 7 days. Then take 1 tablet (5 mg) by mouth twice daily for 23 days 74 tablet 08/17/2021 10/15/2024 Discontinued Start: 08-17-2021 take 2 tablets by mo ut twice daily, then take 1 tablet by mouth twice daily apixaban (ELIQUIS) 5 mg (74 tabs) Indications: Thrombocytopenia, secondary , Encounter for screening for human immunodeficiency virus (HIV) , Acute deep vein thrombosis (DVT) of right peroneal vein (HCC) Take 2 tablets (10 mg) by mouth twice daily for 7 days. Then take 1 tablet (5 mg) by mouth twice daily for 23 days 74 tablet 08/17/2021 Active Start: 08-17-2021 take 2 tablets by mo ut twice daily, then take 1 tablet by mouth twice daily apixaban (ELIQUIS) 5 mg (74 tabs) Indications: Thrombocytopenia, secondary , Encounter for screening for human immunodeficiency virus (HIV) , Acute deep vein thrombosis (DVT) of right peroneal vein (HCC) Take 2 tablets (10 mg) by mouth twice daily for 7 days. Then take 1 tablet (5 mg) by mouth twice daily for 23 days 74 tablet 0 08/17/2021 Active Start: 08-03-2021 take 2 tablets by mo ut twice daily, then take 1 tablet by mouth twice daily Apixaban (Eliquis Dvt-Pe Treat 30d Start) 5 mg (74 tabs) tablets,dose pack Active 5 MG PO TWICE A DAY August 03, 2021 6:21pm 2 tabs twice daily for the first 7 days, then 1 tab twice daily Comment on above: Take 2 tablets (10 m g) by mouth twice daily for 7 days. Then take 1 tablet (5 mg) by mouth twice daily for 23 days ascorbic acid 60 mg / beta carotene 5000 unt / copper sulfate 40 mg / dl-alpha tocopheryl acetate 30 unt / sodium selenite 0.04 mg / zinc oxide 40 mg oral tablet (2 sources) Vitamin C take 1 tablet by mouth once daily Multiple Vitamins-Minerals (THERAPEUTIC MULTIVITAMIN-MINERAL S) tablet Take 1 tablet by mouth daily 0 Suspended aspirin 81 mg chewable tablet (17 sources) Platelet Aggregation Inhibitor, Nonsteroidal Anti-inflammatory Drug Start: 10-04-19 End: 10-23-19 benztropine mesylate 0.5 mg oral tablet (20 sources) Anticholinergic, Antihistamine Start: 03-08-20 End: 10-16-19 Comment on above: Take 0.5 mg by mouth twice daily as needed. BiPAP Machine MISC (6 sources) BiPAP Machine CT SC busPIRone hydrochloride 5 mg oral tablet (20 sources) Start: 05-09-20 End: 10-16-19 take 1 tablet by mouth three times daily busPIRone (BUSPAR) 5 mg tablet Take 5 mg by mouth three times daily. 05/09/2021 10/15/2024 Discontinued Start: 10-23-2019 take 5 mg by mouth t hree times daily Buspirone Active 5 MG PO THREE TIMES A DAY October 23, 2019 12:46pm Start: 10-20-2019 End: 11-19-2019 take 10 mg by mouth twice daily 10 mg, Oral, 2 TIMES D DENIZY, First dose on Sun10/24/19 at 2145 Start: 10-11-2019 End: 10-23-2019 Start: 10-11-2019 End: 10-23-2019 take 2 tablets by mouth twice daily as needed for anxiety Buspirone 5 MG tablet Discontinued 10 mg PO TWICE DAILY NEEDED as needed for Anxiety October 11, 2019 10:14am October 23, 2019 11:47am Start: 10-11-2019 End: 10-23-2019 take 10 mg by mouth twice daily as needed Buspirone Discontinued 10 MG PO TWICE DAILY NEEDED October 11, 2019 11:14am October 23, 2019 12:47pm Comment on above: Take 5 mg by mouth t hree times daily. calcium carbonate 1250 mg oral tablet (1 source) Start: End: calcium elemental (OSCAL) tablet 500 mg calcium chloride 0.0014 meq/ml / potassium chloride 0.004 meq/ml / sodium chloride 0.103 meq/ml / sodium lactate 0.028 meq/ml injectable solution (4 sources) Start: End: lactated Ringer's infusion ceFAZolin 2000 mg injection (2 sources) Cephalosporin Antibacterial Start: End: take 2000 mg intravenously every eight hours 2,000 mg, IntraVENous, Administer over 30 Minutes, Every 8 hours, First dose on [place] 08/09/23 at 1830, For 3 days, Phase II/On Unit, Patients /= 120 k mg premix bag, Suspected Indication (Select all that apply): Surgical Prophylaxis celecoxib 400 mg oral capsule (2 sources) Nonsteroidal Anti-inflammatory Drug Start: End: celecoxib (CeleBREX) capsule 400 mg cephalexin 500 mg oral capsule (15 sources) Cephalosporin Antibacterial Start: End: clindamycin 150 mg oral capsule (2 sources) Lincosamide Antibacterial End: take 2 capsules by mouth every hour clindamycin (CLEOCIN) 150 MG capsule Take 150 mg by mouth 3 times daily Take 2 capsules one hour prior to any medical or dental procedures due to back fusion 0 10/26/2019 Discontinued (Stop Taking at Discharge) cloNIDine hydrochloride 0.1 mg oral tablet (20 sources) Central alpha-2 Adrenergic Agonist Start: End: Start: 12-29-2021 End: 12-31-2021 1 ml dexamethasone phosphate 10 mg/ml injection (2 sources) Corticosteroid Start: 08-09-2023 End: 08-10-2023 take 6 mg intravenously every six hours 6 mg, IntraVENous, Every 6 hours, First dose on [place] 08/09/23 at 1800, For 24 hours, Phase II/On Unit dicyclomine hydrochloride 10 mg oral capsule (20 sources) Anticholinergic Start: 01-04-2023 End: 03-05-2023 Start: 01-04-2023 End: 03-05-2023 take 20 mg by mouth three times daily before mealtime Dicyclomine Discontinued 20 MG PO THREE TIMES DAILY BEFORE MEALS January 04, 2023 12:00am March 05, 2023 9:18am Start: 08-04-2020 take 1 capsule by [facility] four times daily as needed for nausea dicyclomine (BENTYL) 10 MG capsule Take 1 capsule by mouth 4 times daily as needed (Nausea) 120 capsule 0 08/04/2020 Suspended Start: 04-21-2020 take 1 capsule by mo uth four times daily as needed for nausea dicyclomine (BENTYL) 10 MG capsule Take 1 capsule by mouth 4 times daily as needed (Nausea) 120 capsule 0 04/21/2020 Active Start: 10-20-2019 take 1 capsule by mo uth four times daily as needed for nausea dicyclomine (BENTYL) 10 MG capsule Take 1 capsule by mouth 4 times daily as needed (Nausea) 120 capsule 0 10/20/2019 Active Start: 10-04-2019 End: 10-23-2019 Start: 10-04-2019 End: 10-23-2019 take 1 capsule by mouth three times daily before mealtime Dicyclomine 10 MG capsule Discontinued 10 mg PO THREE TIMES DAILY BEFORE MEALS October 03, 2019 11:00pm October 23, 2019 11:50am docusate sodium 50 mg / sennosides, skilled nursing 8.6 mg oral tablet (2 sources) Start: 08-11-2023 End: 08-14-2023 senna-docusate sodium (Senokot-S) 8.6-50 MG tablet 2 tablet doxycycline hyclate 100 mg oral capsule (1 source) Tetracycline-class Drug Start: 10-24-2019 End: 10-25-2019 100 mg, Oral, EVERY 12 HOURS, First dose on Sun10/24/19 at 2200 This medication can interact with tube feedings (TF)- obtain MD order to manage. Recommend holding TF for 1 h before and 2 h after dose. Take 1 h before or 2 h after dairy, calcium, iron, magnesium, aluminum or zinc. famotidine 20 mg oral tablet (2 sources) Histamine-2 Receptor Antagonist Start: 08-09-2023 End: 08-09-2023 famotidine (Pepcid) tablet 20 mg fluconazole 100 mg oral tablet (20 sources) Azole Antifungal Start: 08-09-2024 End: 11-07-2024 Start: 06-29-2023 End: 07-12-2023 Start: 06-29-2023 End: 07-12-2023 take 1 tablet by mouth once daily Fluconazole 100 mg tablet Discontinued 100 mg PO DAILY July 12, 2023 12:00am July 12, 2023 1:24pm folic acid 1 mg oral tablet (20 sources) Start: 03-09-2021 End: 10-15-2024 Start: 08-27-2020 take 1 tablet by rachid th once daily folic acid (FOLVITE) 1 MG tablet Take 1 tablet by mouth daily 30 tablet 3 08/27/2020 Active Start: 08-24-2020 folic acid (FO LVITE) tablet 1 mg Comment on above: Take 1 mg by mouth o nce daily. gabapentin 100 mg oral capsule (5 sources) Anti-epileptic Agent Start: 08-09-2023 End: 08-09-2023 gabapentin (Neurontin) capsule 100 mg Start: 08-24-2020 gabapentin (NE URONTIN) capsule 300 mg Start: 07-14-2020 End: 08-13-2020 take 2 capsules by mouth three times daily gabapentin (NEURONTIN) 100 MG capsule Take 2 capsules by mouth 3 times daily for 16 days. 96 capsule 0 07/27/2020 Suspended 12 hr guaiFENesin 600 mg extended release oral tablet (20 sources) Start: 06-07-2022 End: 06-07-2023 take 2 tablets by mouth twice daily guaiFENesin (Mucinex) 600 MG 12 hr tablet Take 2 tablets (1,200 mg) by mouth 2 times daily. Do not crush, chew, or split. 120 tablet 0 06/07/2022 08/29/2022 Discontinued (Med list cleanup) Start: 10-04-2019 End: 10-11-2019 HYDROmorphone (Dilaudid) injection 0.25 mg (2 sources) Start: 08-09-2023 End: 08-14-2023 take 0.25 mg intravenously every four hours as needed for pain HYDROmorphone (Dilaudid) injection 0.25 mg hydrOXYzine hydrochloride 10 mg oral tablet (20 sources) Antihistamine Start: 08-10-2023 End: 08-14-2023 take 1 tablet by mouth every eight hours as needed for anxiety hydrOXYzine HCl (Atarax) tablet 25 mg Start: 07-10-2022 End: 07-12-2023 take 1 capsule by mouth every eight hours hydrOXYzine pamoate (Vistaril) 50 MG capsule take 1 capsule by mouth every 8 hours if needed 30 capsule 3 02/15/2023 Active Start: 09-28-2021 take 1 capsule by mo uth every eight hours hydrOXYzine pamoate (Vistaril) 50 MG capsule take 1 capsule by mouth every 8 hours if needed 0 09/28/2021 Active Start: 06-01-2021 End: 10-15-2024 Start: 08-25-2020 hydrOXYzine (V ISTARIL) capsule 50 mg Start: 07-14-2020 End: 07-24-2020 take 1 tablet by mouth every six hours as needed for anxiety hydrOXYzine (ATARAX) 50 MG tablet Take 1 tablet by mouth every 6 hours as needed for Anxiety 40 tablet 0 07/14/2020 07/24/2020 Active Comment on above: Take 50 mg by mouth three times daily as needed. ibuprofen 400 mg oral tablet (19 sources) Nonsteroidal Anti-inflammatory Drug Start: 08-25-2020 End: 08-25-2020 ibuprofen (ADVIL;MOTRIN) tablet 400 mg Start: 08-24-2020 End: 08-24-2020 ibuprofen (ADVIL;MOTRIN) tab let 400 mg Start: 10-04-2019 End: 10-23-2019 iopamidol (ISOVUE-370) 76 % injection 75 mL (1 source) Start: 10-24-2019 End: 10-24-2019 iopamidol (ISOVUE-370) 76 % injection 75 mL Lactobacillus Combination No.4 (Probiotic) 3 billion cell capsule (6 sources) Start: 03-05-2023 End: 07-13-2024 take 3 capsules by mouth once daily Lactobacillus Combination No.4 (Probiotic) 3 billion cell capsule Discontinued 3000 NMA PO DAILY March 04, 2023 11:00pm July 13, 2024 4:00pm Start: 03-05-2023 take 3 capsules by m outh once daily Lactobacillus Combination No.4 (Probiotic) 3 billion cell capsule Active 3000 MMU CELLS PO DAILY March 05, 2023 12:00am Start: 03-05-2023 take 3 capsules by m outh once daily Lactobacillus Combination No.4 (Probiotic) 3 billion cell capsule Active 3000 MMU CELLS PO DAILY March 04, 2023 11:00pm Start: 03-05-2023 take 3 capsules by m outh once daily Lactobacillus Combination No.4 (Probiotic) 3 billion cell capsule Active 3000 MMU CELLS PO DAILY March 04, 2023 11:00pm administer with a meal Start: 03-05-2023 take 3 capsules by m outh once daily Lactobacillus Combination No.4 (Probiotic) 3 billion cell capsule Active 3000 MMU CELLS PO DAILY March 05, 2023 12:00am administer with a meal levoFLOXacin 750 mg oral tab let (20 sources) Quinolone Antimicrobial Start: 07-17-2024 End: 08-09-2024 Start: 10-26-2019 End: 10-31-2019 take 1 tablet by mouth once daily levoFLOXacin (LEVAQUIN) 750 MG tablet Take 1 tablet by mouth daily for 5 days 5 tablet 0 10/26/2019 10/31/2019 Active Start: 10-25-2019 levoFLOXacin ( LEVAQUIN) 750 MG/150ML infusion 750 mg Start: 10-04-2019 End: 10-23-2019 lidocaine 0.04 mg/mg medicated patch (2 sources) Antiarrhythmic, Amide Local Anesthetic Start: 08-10-2023 End: 08-14-2023 Lidocaine 4 % patch 1 patch LORazepam 1 mg oral tablet (20 sources) Benzodiazepine Start: 08-13-2023 End: 08-14-2023 LORazepam (Ativan) tablet 1 mg Start: 08-10-2023 End: 08-11-2023 take 1 tablet by mouth every four hours as needed for anxiety LORazepam (Ativan) tablet 1 mg Start: 08-26-2020 LORazepam (ATI VAN) injection 1 mg Start: 08-25-2020 End: 08-25-2020 LORazepam (ATIVAN) tablet 1 mg Start: 08-24-2020 End: 08-24-2020 LORazepam (ATIVAN) injection 1 mg Start: 08-24-2020 End: 08-25-2020 LORazepam (ATIVAN) injection 1 mg Start: 08-24-2020 End: 08-24-2020 LORazepam (ATIVAN) 2 MG/ML injection Start: 08-24-2020 End: 08-24-2020 LORazepam (ATIVAN) injection 4 mg Start: 11-05-2019 End: 03-09-2021 Start: 10-24-2019 End: 10-31-2019 take 1 tablet by mouth every six hours as needed for anxiety LORazepam (ATIVAN) 0.5 MG tablet Indications: Anxiety and depression Take 1 tablet by mouth every 6 hours as needed for Anxiety for up to 5 days. 20 tablet 0 10/26/2019 10/31/2019 Active Start: 10-24-2019 End: 10-25-2019 LORazepam (ATIVAN) tablet 1 mg Start: 10-04-2019 End: 10-06-2019 magnesium oxide 400 mg oral tablet (20 sources) Start: 05-16-2021 End: 03-05-2023 Start: 08-27-2020 take 1 tablet by rachid th once daily magnesium oxide (MAG-OX) 400 (241.3 Mg) MG TABS tablet Take 1 tablet by mouth daily 30 tablet 0 08/27/2020 Active Start: 08-26-2020 magnesium oxid e (MAG-OX) tablet 400 mg Comment on above: Take 1 tablet by rachid th once daily. 50 ml magnesium sulfate 40 mg/ml injection (1 source) Start: 08-24-2020 End: 08-24-2020 magnesium sulfate 2000 mg in 50 mL IVPB premix memantine hydrochloride 10 mg oral tablet (20 sources) Q-oxopqx-W-aspartate Receptor Antagonist Start: 12-31-2021 End: 03-05-2023 Start: 05-30-2021 End: 10-15-2024 Comment on above: Take 5 mg by mouth o nce daily. 24 hr metFORMIN hydrochloride 500 mg extended release oral tablet (11 sources) Biguanide Start: 08-13-2024 take 1 tablet by mouth twice daily metFORMIN ER (GLUCOPHAGE XR) 500 mg 24 hr tablet Take 1 tablet by mouth two times a day. 08/13/2024 Active Start: 08-13-2024 End: 11-10-2024 methocarbamol 500 mg oral tablet (2 sources) Muscle Relaxant Start: 08-09-2023 End: 08-14-2023 take 1 tablet by mouth every eight hours as needed methocarbamol (Robaxin) tablet 1,000 mg methylPREDNISolone 125 mg injection (1 source) Corticosteroid Start: 10-24-2019 End: 10-24-2019 methylPREDNISolone sodium (SOLU-MEDROL) injection 125 mg 1 ml naloxone hydrochloride 0.4 mg/ml injection (2 sources) Opioid Antagonist Start: 08-09-2023 End: 08-14-2023 naloxone (Narcan) injection 0.4 mg niacin 500 mg oral tablet (5 sources) Nicotinic Acid Start: 02-02-2020 End: 10-15-2024 take 1 tablet by mouth twice daily at mealtime niacin (NIACIN) 500 mg tablet Take 1 tablet by mouth twice daily with meals. 02/02/2020 10/15/2024 Discontinued End: 07-14-2020 take 1 capsule by mouth twice daily niacin 250 MG extended release capsule Take 250 mg by mouth 2 times daily 0 07/14/2020 Discontinued (Stop Taking at Discharge) Comment on above: Take 1 tablet by rachid th twice daily with meals. ondansetron 4 mg disintegrat ing oral tablet (20 sources) Serotonin-3 Receptor Antagonist Start: 01-04-2023 End: 07-12-2023 Start: 08-24-2020 End: 08-24-2020 ondansetron (ZOFRAN) 4 MG/2M L injection Start: 08-24-2020 End: 08-24-2020 ondansetron (ZOFRAN) injecti on 4 mg Start: 10-01-2019 End: 10-23-2019 Start: 09-18-2019 take 1 tablet by rachid th three times daily as needed for nausea ondansetron (ZOFRAN) 4 MG tablet Take 1 tablet by mouth 3 times daily as needed for Nausea or Vomiting 30 tablet 0 09/18/2019 Active ondansetron ODT (Zofran-ODT) disintegrating tablet 4 mg (2 sources) Start: 08-09-2023 End: 08-14-2023 take 1 tablet by mouth every eight hours as needed for nausea and vomiting ondansetron ODT (Zofran-ODT) disintegrating tablet 4 mg oxyCODONE (20 sources) Opioid Agonist Start: 08-09-2023 End: 08-14-2023 take 1 tablet by mouth every four hours as needed for pain oxyCODONE (Roxicodone) immediate release tablet 5 mg Start: 07-22-2021 take 5-10 mg by mout h every eight hours as needed for pain Oxycodone Active 5 - 10 MG PO EVERY 8 HOURS NEEDED 15 July 22, 2021 1:38pm Give as needed for pain, Q8H. Start: 01-11-2019 End: 01-15-2019 Start: 12-26-2018 End: 12-29-2018 Start: 12-26-2018 End: 12-29-2018 take 1 tablet by mouth every eight hours as needed for pain Oxycodone 5 MG tablet Discontinued 5 mg PO EVERY 8 HOURS NEEDED as needed for Severe Pain (6-10/10) 10 December 26, 2018 December 27, 2018 11:00pm December 28, 2018 11:09pm Start: 12-13-2018 End: 12-16-2018 Start: 12-13-2018 End: 12-16-2018 take 4 mg by mouth every six hours as needed for pain Oxycodone 5 MG tablet Discontinued 4 mg PO EVERY 6 HOURS as needed for Moderate Pain (4-6/10) 12 December 13, 2018 December 14, 2018 11:00pm December 15, 2018 11:07pm Start: 12-13-2018 End: 12-16-2018 take 4 mg by mouth every six hours Oxycodone Discontinued 4 MG PO EVERY 6 HOURS 12 December 13, 2018 December 16, 2018 12:07am PEP device (20 sources) Start: 10-20-2019 End: 10-23-2019 PEP device Discontinued 0 U .Route .MEDSUPPLY October 20, 2019 8:41am October 23, 2019 11:50am with training Start: 10-20-2019 End: 10-23-2019 PEP device Discontinued 0 UN IT .Route .MEDSUPPLY October 20, 2019 8:41am October 23, 2019 11:50am with training Start: 10-20-2019 End: 10-23-2019 PEP device Discontinued 0 UN IT .Route .MEDSUPPLY October 20, 2019 9:41am October 23, 2019 12:50pm with training Start: 05-12-2019 End: 10-20-2019 PEP device Discontinued 0 .R oute .MEDSUPPLY May 12, 2019 11:05am October 20, 2019 8:41am with training Start: 05-12-2019 End: 10-20-2019 PEP device Discontinued 0 .R oute .MEDSUPPLY May 12, 2019 12:05pm October 20, 2019 9:41am with training Start: 05-12-2019 End: 05-12-2019 PEP device Discontinued 0 .R OUTE .MEDSUPPLY May 12, 2019 11:41am May 12, 2019 12:06pm with training Start: 05-12-2019 End: 05-12-2019 PEP device Discontinued 0 .R OUTE .MEDSUPPLY May 12, 2019 12:00am May 12, 2019 11:06am with training Start: 05-12-2019 End: 05-12-2019 PEP device Discontinued 0 .R OUTE .MEDSUPPLY May 12, 2019 1:00am May 12, 2019 12:06pm with training PHENobarbital 64.8 mg oral tablet (5 sources) Start: 08-25-2020 End: 08-26-2020 PHENobarbital (LUMINAL) tabl et 64.8 mg Start: 08-24-2020 End: 08-25-2020 PHENobarbital (LUMINAL) tabl et 97.2 mg Start: 08-24-2020 End: 08-24-2020 PHENobarbital (LUMINAL) tabl et 64.8 mg phentermine hydrochloride 37.5 mg oral tablet (8 sources) Sympathomimetic Amine Anorectic Start: 07-12-2023 End: 07-12-2023 polyethylene glycol [id number] [id number] mg powder for oral solution (4 sources) Osmotic Laxative Start: 08-09-2023 End: 08-14-2023 take 17 g by mouth every twenty-four hours as needed for constipation 17 g, Oral, Daily PRN, constipation, Starting on [place] 08/09/23 at 1421, Phase II/On Unit, 1st line for treatment of constipation - give scheduled if no bowel movement in past 24 hours. Start: 08-24-2020 polyethylene g lycol (GLYCOLAX) packet 17 g Start: 10-24-2019 17 g, Oral, DA NIDA PRN, Constipation, Starting 10/24/19 at 2117 First line therapy for constipation potassium chloride 20 meq powder for oral solution (20 sources) Start: 08-11-2023 End: 08-12-2023 potassium chloride (Klor-Con ) packet 40 mEq Start: 05-07-2023 take 1 tablet by rachid th twice daily potassium chloride CR (Klor-Con M20) 20 MEQ ER tablet TAKE 1 TABLET BY MOUTH TWICE A DAY *DO NOT CRUSH OR CHEW 60 tablet 5 05/07/2023 Active Start: 06-07-2022 End: 12-04-2022 take 1 tablet by mouth twice daily potassium chloride CR (Klor-Con M20) 20 MEQ ER tablet TAKE 1 TABLET BY MOUTH TWICE A DAY *DO NOT CRUSH OR CHEW 60 tablet 5 11/17/2022 Active Start: 03-13-2022 End: 06-06-2022 take 7.5 mL by mouth twice daily potassium chloride 40 MEQ/15ML (20%) solution TAKE TAKE 7.5ML BY MOUTH TWICE A DAY 0 03/13/2022 06/06/2022 Discontinued Start: 12-31-2021 End: 07-13-2024 Start: 12-31-2021 End: 07-16-2022 take 2 tablets by mouth twice daily Potassium Chloride 10 mEq tablet extended release Discontinued 20 meq PO TWICE A DAY 1 December 30, 2021 11:00pm July 16, 2022 8:20pm Start: 12-31-2021 End: 07-16-2022 take 20 mEq by mouth twice daily Potassium Chloride Discontinued 20 MEQ PO TWICE A DAY December 31, 2021 12:00am July 16, 2022 9:20pm Start: 12-29-2021 End: 12-31-2021 Start: 12-29-2021 End: 12-31-2021 take 1 mL by mouth once daily Potassium Chloride 40 mE q/15 mL liquid Discontinued 15 mL PO DAILY December 28, 2021 11:00pm December 31, 2021 7:34am Start: 12-29-2021 End: 12-31-2021 take 1 mL by mouth once daily Potassium Chloride Disco ntinued 15 ML PO DAILY December 29, 2021 12:00am December 31, 2021 8:34am Start: 08-25-2020 End: 08-25-2020 potassium chloride 10 mEq/10 0 mL IVPB (Peripheral Line) Start: 08-24-2020 potassium chlo ride (KLOR-CON M) extended release tablet 40 mEq Start: 06-07-2020 take 3 tablets by mo uth twice daily, then take 1 tablet by mouth potassium chloride (KLOR-CON M) 20 MEQ extended release tablet take 3 tablets by mouth twice a day 180 tablet 1 06/07/2020 Suspended Start: 02-02-2020 End: 10-15-2024 take 6 tablets by mouth twice daily potassium chloride (K-TAB) 10 mEq tablet Take 6 tablets by mouth twice daily. 02/02/2020 10/15/2024 Discontinued Start: 10-24-2019 take 1 tablet by rachid twice daily, then take 0.5 tablet by mouth, then take 0.5 tablet by mouth 60 mEq, Oral, 2 TIMES DAILY, First dose on 10/24/19 at 2145 Do not crush, chew, or suck on tablet. Tablet may also be broken in half and each half swallowed separately. Start: 10-01-2019 End: 10-11-2019 take 60 mEq by mouth twice daily Potassium Chloride Discontinued 60 MEQ PO TWICE A DAY October 01, 2019 10:53am October 11, 2019 11:26am Start: 07-02-2019 End: 10-01-2019 take 40 mEq by mouth twice daily Potassium Chloride Discontinued 40 MEQ PO TWICE A DAY 120 July 17, 2019 9:18am October 01, 2019 10:53am Start: 06-25-2019 End: 10-11-2019 take 3 tablets by mouth twice daily Potassium Chloride 20 MEQ tablet Discontinued 60 meq PO TWICE A DAY October 01, 2019 9:53am October 11, 2019 10:26am Start: 06-25-2019 End: 10-01-2019 take 2 tablets by mouth twice daily Potassium Chloride 20 mEq tablet,ER particles/crystals Discontinued 40 meq PO TWICE A DAY 120 July 17, 2019 8:18am October 01, 2019 9:53am Start: 05-22-2019 End: 03-09-2021 Comment on above: Take 6 tablets by mo [facility] twice daily. predniSONE 10 mg oral tablet (20 sources) Start: 07-17-2024 End: 08-09-2024 Start: 07-20-2022 End: 01-04-2023 Start: 07-20-2022 End: 01-04-2023 take 2 tablets by mouth at breakfast Prednisone 20 mg Tablet Discontinued 40 mg PO WITH BREAKFAST 03 08July 20, 2022 12:00am January 04, 2023 10:51am Start: 10-26-2019 End: 11-03-2019 take 4 tablets by mouth once daily, then take 3 tablets by mouth once daily, then take 2 tablets by mouth once daily, then take 1 tablet by mouth once daily predniSONE (DELTASONE) 10 MG tablet Take 4 tablets by mouth daily for 2 days, THEN 3 tablets daily for 2 days, THEN 2 tablets daily for 2 days, THEN 1 tablet daily for 2 days. 20 tablet 0 10/26/2019 11/03/2019 Active Start: 10-25-2019 take 40 mg by mouth once daily 40 mg, Oral, DAILY, First dose on 10/25/19 at 0900 Start: 10-11-2019 End: 10-23-2019 take 3 tablets by mouth once daily Prednisone 10 MG tablet Discontinued 10 mg PO DAILY October 10, 2019 11:00pm October 23, 2019 11:49am 30 mg daily for 3 days 20 mg daily for 3 days 10 mg daily 3 days Start: 10-11-2019 End: 10-23-2019 take 30 mg by mouth once daily Prednisone Discontinued 10 MG PO DAILY October 11, 2019 12:00October 23, 2019 12:49pm 30 mg daily for 3 days 20 mg daily for 3 days 10 mg daily 3 days Start: 10-04-2019 End: 10-11-2019 Prednisone Discontinued 1 TA BLET PO DAILY October 04, 2019 10:06am October 11, 2019 11:25am 4 tabs daily for 3 days, then 3 tabs daily for 3 days, then 2 tabs daily for 3 days, then 1 tab daily for 3 days Start: 10-04-2019 End: 10-23-2019 Start: 10-04-2019 End: 10-11-2019 Start: 10-04-2019 End: 10-11-2019 Prednisone Discontinued 1 TA BLET PO DAILY October 03, 2019 11:00pm October 11, 2019 10:25am 4 tabs daily for 3 days, then 3 tabs daily for 3 days, then 2 tabs daily for 3 days, then 1 tab daily for 3 days Start: 10-04-2019 End: 10-11-2019 Prednisone Discontinued 1 TA BLET PO DAILY October 04, 2019 12:00am October 11, 2019 11:25am 4 tabs daily for 3 days, then 3 tabs daily for 3 days, then 2 tabs daily for 3 days, then 1 tab daily for 3 days prochlorperazine 5 mg oral t ablet (20 sources) Phenothiazine Start: 07-16-2022 End: 01-04-2023 Start: 02-02-2020 End: 09-08-2022 take 1 tablet by mouth every six hours as needed prochlorperazine (COMPAZINE) 10 mg tablet Take 1 tablet by mouth every 6 hours as needed for Nausea/Vomiting. 02/02/2020 Active Start: 10-20-2019 take 1 tablet by rachid th every six hours as needed for nausea prochlorperazine (COMPAZINE) 10 MG tablet Take 1 tablet by mouth every 6 hours as needed (Nausea) 120 tablet 0 10/20/2019 Active Comment on above: Take 1 tablet by rachid th every 6 hours as needed for Nausea/Vomiting. promethazine hydrochloride 2 5 mg oral tablet (20 sources) Phenothiazine Start: 06-10-2021 End: 06-07-2022 Start: 08-24-2020 promethazine ( PHENERGAN) tablet 12.5 mg Start: 10-24-2019 promethazine ( PHENERGAN) tablet 12.5 mg QUEtiapine 200 mg oral tablet (20 sources) Atypical Antipsychotic Start: 02-13-2022 End: 06-07-2022 take 1 tablet by mouth once daily QUEtiapine (SEROquel) 200 MG tablet Take 1 tablet by mouth Nightly. 0 02/13/2022 06/07/2022 Discontinued (Therapy completed) Start: 12-31-2021 End: 04-19-2022 Start: 07-17-2021 End: 12-31-2021 Start: 07-17-2021 End: 12-31-2021 Quetiapine 200 mg tablet Discontinued 100 mg PO AT BEDTIME July 17, 2021 12:00am December 31, 2021 7:34am Start: 07-17-2021 End: 12-31-2021 take 100 mg by mouth at bedtime Quetiapine Discontinue d 100 MG PO AT BEDTIME July 17, 2021 1:00am December 31, 2021 8:34am Start: 04-07-2021 End: 10-15-2024 QUEtiapine (SEROQUEL) 100 mg tablet 1 tablet daily at bedtime. 04/07/2021 10/15/2024 Discontinued Start: 03-08-2021 End: 06-14-2021 Start: 03-08-2021 End: 06-14-2021 Quetiapine 25 mg tablet Disc ontinued 150 mg PO AT BEDTIME March 07, 2021 11:00pm June 14, 2021 10:51am Start: 03-08-2021 End: 06-14-2021 take 150 mg by mouth at bedtime Quetiapine Discontinue d 150 MG PO AT BEDTIME March 08, 2021 12:00am June 14, 2021 11:51am Comment on above: 1 tablet daily at be dtinm. Semaglutide (6 sources) Start: 01-28-2024 End: 07-13-2024 Start: 01-28-2024 End: 07-13-2024 Semaglutide 0.25 mg or 0.5 m g (2 mg/3 mL) pen injector Discontinued 0.25 mg SC EVERY WEEK January 27, 2024 11:00pm July 13, 2024 4:01pm for 4 weeks 1000 ml sodium chloride 9 mg /ml injection (16 sources) Start: 08-11-2023 End: 08-14-2023 sodium chloride 0.9 % infusi on Start: 08-09-2023 End: 08-14-2023 10 mL, IntraVENous, Every 12 hours scheduled (2 times per day), First dose on [place] 08/09/23 at 2100, Phase II/On Unit Start: 08-09-2023 End: 08-14-2023 take 100 mL intravenously every hour as needed, then take 20 mL intravenously every hour as needed 5-250 mL/hr, IntraVENous, PRN, if patient receiving piggyback infusions and maintenance fluids are not ordered OR KVO fluids to protect IV site / prevent frequent line interruptions/ long duration, Starting on [place] 08/09/23 at 1421, Phase II/On Unit, For piggyback infusion, administer at same rate as piggyback for a total of 25 mL. Enter 25 mL into dose field and piggyback rate into rate field of order. If piggyback is infusing at a rate less than 100 mL/hr, enter 25 mL into dose field and 100 mL/hr into rate field of order. For KVO fluids, enter rate of 20 mL/hr or less into rate field of order. Start: 08-09-2023 End: 08-14-2023 take 10 mL intravenously once as needed 10 mL, IntraVENous, PRN, line care, Starting on [place] 08/09/23 at 1421, Phase II/On Unit, After every IV line use Start: 08-24-2020 sodium chlorid e flush 0.9 % injection 10 mL Start: 08-24-2020 End: 08-24-2020 0.9 % sodium chloride bolus Start: 10-24-2019 10 mL, Intrave nous, EVERY 12 HOURS SCHEDULED (2 times per day), First dose on Sun10/24/19 at 2145 Start: 10-24-2019 End: 10-27-2019 take 10 mL intravenous route once as needed 10 mL, Intravenous, PRN, Line Care, Per Director Of Agriculture Request, Starting Sun10/24/19 at 2117, For 72 hours May use order for Line Care after every IV line use and Agitated Saline Bubble Study. Administration for Bubble Study per fashion supervisor request for only. Remove 1 mL 0.9% sodium chloride from 10 mL syringe for creating agitated saline. Start: 07-25-2019 0.9 % sodium c hloride infusion Spacer/Aero-Holding Chambers (AEROCHAMBER MV) MISC (2 sources) Start: 11-19-2019 Spacer/Aero-Ho lding Chambers (AEROCHAMBER MV) MISC Use as directed with metered dose inhaler 1 each 0 11/19/2019 Suspended Start: 11-19-2019 Spacer/Aero-Ho lding Chambers (AEROCHAMBER MV) MISC Use as directed with metered dose inhaler 1 each 0 11/19/2019 Active technetium Tc 99m pentetate radio-isotope injection 47 millicurie (2 sources) Start: 08-13-2023 End: 08-13-2023 technetium Tc 99m pentetate radio-isotope injection 47 millicurie technetium Tc-99m albumin aggregated (MAA) radio-isotope solution 5 millicurie (2 sources) Start: 08-13-2023 End: 08-13-2023 technetium Tc-99m albumin aggregated (MAA) radio-isotope solution 5 millicurie thiamine 100 mg oral tablet (20 sources) Start: 08-13-2023 End: 08-14-2023 thiamine (Vitamin B1) tablet 100 mg Start: 01-15-2023 End: 02-15-2023 take 1 tablet by mouth once daily thiamine (Vitamin B-1) 100 MG tablet TAKE 1 TABLET BY MOUTH DAILY 30 tablet 4 01/15/2023 02/15/2023 Discontinued (Therapy completed) Start: 12-15-2022 take 1 tablet by rachid th once daily thiamine (Vitamin B-1) 100 MG tablet TAKE 1 TABLET BY MOUTH DAILY 28 tablet 0 12/15/2022 Active Start: 06-30-2022 take 1 tablet by rachid th once daily thiamine (Vitamin B-1) 100 MG tablet TAKE 1 TABLET BY MOUTH DAILY 30 tablet 5 06/30/2022 Active Start: 05-05-2022 End: 06-02-2022 take 1 tablet by mouth once daily thiamine (Vitamin B-1) 100 MG tablet TAKE 1 TABLET BY MOUTH DAILY 30 tablet 0 05/05/2022 06/02/2022 Discontinued Start: 07-19-2021 End: 03-05-2023 Start: 07-19-2021 take 1 tablet by rachid th three times daily Thiamine Hcl (Vitamin B1) (Vitamin B-1) 50 mg Tablet Active 50 MG PO THREE TIMES A DAY July 19, 2021 12:00am Start: 05-04-2021 End: 10-15-2024 take 1 tablet by mouth three times daily thiamine (VITAMIN B1) 100 mg tablet Take 100 mg by mouth three times daily. 05/04/2021 10/15/2024 Discontinued Start: 08-27-2020 take 1 tablet by rachid th once daily thiamine mononitrate 100 MG tablet Take 1 tablet by mouth daily 30 tablet 0 08/27/2020 Active Start: 08-24-2020 thiamine monon itrate tablet 100 mg Comment on above: Take 100 mg by mouth three times daily. traMADol hydrochloride 50 mg oral tablet (1 source) Opioid Agonist Start: 10-24-2019 End: 10-24-2019 take 50 mg by mouth once 50 mg, Oral, ONCE, Sun10/24/19 at 2330, For 1 dose traZODone hydrochloride 100 mg oral tablet (20 sources) Serotonin Reuptake Inhibitor Start: 07-15-2024 End: 08-09-2024 Start: 06-29-2023 take 200 mg by mouth at bedtim e Trazodone Active 200 MG PO AT BEDTIME June 29, 2023 9:45am Start: 09-13-2022 End: 10-15-2024 take 1 tablet by mouth once daily traZODone (Desyrel) 150 MG tablet take 1 tablet by mouth nightly 30 tablet 05/07/2023 Active Start: 06-10-2021 End: 07-13-2024 Start: 06-10-2021 End: 06-29-2023 take 1 tablet by mouth at bedtime Trazodone 100 mg Tablet Discontinued 100 mg PO AT BEDTIME June 10, 2021 12:00am June 29, 2023 8:45am Start: 08-26-2020 traZODone (ALVIN YREL) tablet 100 mg Start: 08-26-2020 take 1 tablet by rachid th once daily traZODone (DESYREL) 100 MG tablet Take 1 tablet by mouth nightly 30 tablet 0 08/26/2020 Active Start: 07-22-2020 End: 08-26-2020 take 50 mg by mouth once daily 50 mg, Oral, NIGHTLY, F irst dose on Sun08/24/20 at 2100 Comment on above: Take 150 mg by mouth daily at bedtime. Problems Active Problems Problem Classification Problem Date Documented Da te Episodic/Chronic Abdominal pain (20 sources) Upper abdominal pain, unspecified; Translations: [Indigestion] Onset: 3 Resolved: 7 04-26-2019 Episodic Administrative/social admission (17 sources) Immobile; Translations: [Other reduced mobility] 08-11-2021 Episodic Anxiety disorders (20 sources) Mixed anxiety and depressive disorder; Translations: [Anxiety] Onset: 1 2019 Chronic Asthma (20 sources) Asthma; Translations: [Unspecified asthma, uncomplicated] Onset: 8 04-12-2018 Chronic Cardiac dysrhythmias (1 source) Tachycardia; Translations: [Tachycardia] Episodic Chronic kidney disease (20 sources) Chronic kidney disease stage 1; Translations: [Chronic kidney disease, stage 1] Onset: 0 05-10-2020 Chronic Chronic obstructive pulmonary disease and bronchiectasis (20 sources) Pulmonary emphysema; Translations: [Acute exacerbation of chronic obstructive airways disease] Onset: 9 12-16-2018 Chronic Conduction disorders (17 sources) Right bundle branch block; Translations: [Unspecified right bundle-branch block] 10-22-2019 Chronic Congestive heart failure; nonhypertensive (20 sources) Diastolic heart failure; Translations: [Unspecified diastolic (congestive) heart failure] Onset: 0 05-10-2020 Chronic Deficiency and other anemia (20 sources) Pancytopenia; Translations: [Other pancytopenia] Onset: 2 03-20-2022 Chronic Deficiency and other anemia (2 sources) Other pancytopenia; Translations: [Other pancytopenia (HCC)] Onset: 2 Chronic Deficiency and other anemia (17 sources) Anemia; Translations: [Anemia, unspecified] 10-22-2019 Episodic Delirium, dementia, and amnestic and other cognitive disorders (20 sources) Dementia with behavioral disturbance; Translations: [Dementia 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] Onset: 2 03-20-2022 Chronic Diseases of white blood cells (18 sources) Neutropenia; Translations: [Neutropenia, unspecified] Chronic Disorders of lipid metabolism (20 sources) Hyperlipidemia; Translations: [Hyperlipidemia, unspecified] Onset: 2 Resolved: 5 10-31-2017 Chronic E Codes: Adverse effects of medical drugs (6 sources) Adverse reaction to drug; Translations: [Adverse effect of unspecified drugs, medicaments and biological substances, initial encounter] 01-29-2024 Episodic Esophageal disorders (20 sources) Gastroesophageal reflux disease; Translations: [Gastro-esophageal reflux disease without esophagitis] Onset: 1 08-26-2020 Chronic Essential hypertension (20 sources) Essential hypertension; Translations: [Essential (primary) hypertension] Onset: 8 Resolved: 5 10-31-2017 Chronic Fracture of lower limb (20 sources) Bimalleolar fracture of ankle ; Translations: [Displaced bimalleolar fracture of right lower leg, initial encounter for closed fracture] Episodic Headache; including migraine (1 source) Migraine, unspecified, intractable, without status migrainosus; Translations: [Migraine, unspecified, intractable, without status migrainosus] Onset: 5 Chronic Headache; including migraine (20 sources) Bilateral headache; Translations: [Bilateral headache] 07-13-2024 Episodic Headache; including migraine (2 sources) Headache; including migraine; Translations: [Headache, unspecified] Onset: 5 Hypertension with complications and secondary hypertension (20 sources) Hypertensive heart AND renal disease; Translations: [Hypertensive heart and chronic kidney disease with heart failure and stage 1 through stage 4 chronic kidney disease, or unspecified chronic kidney disease] Onset: 2 03-20-2022 Chronic Miscellaneous mental health disorders (20 sources) Primary insomnia; Translations: [Chronic insomnia] Onset: 8 Resolved: 3 03-20-2022 Chronic Miscellaneous mental health disorders (6 sources) Chronic insomnia; Translations: [Chronic insomnia] Onset: 8 04-12-2018 Mood disorders (20 sources) Single episode of major depression in full remission; Translations: [Moderate major depression, single episode] Onset: 8 Resolved: 3 10-31-2017 Chronic Mycoses (10 sources) Candidiasis of mouth; Translations: [Candidal stomatitis] 06-29-2023 Episodic Osteoarthritis (20 sources) Osteoarthritis of hip; Translations: [Osteoarthritis of right hip joint] Onset: 5 04-12-2018 Chronic Osteoarthritis (5 sources) Osteoarthritis of right hip joint; Translations: [Primary osteoarthritis of right hip] Onset: 5 04-12-2018 Other acquired deformities (20 sources) Scoliosis of lumbar spine; Translations: [Scoliosis, unspecified] Onset: 5 04-12-2018 Chronic Other aftercare (4 sources) Long-term current use of benzodiazepine; Translations: [Other half-way (current) drug therapy] 11-07-2024 Episodic Other circulatory disease (20 sources) Low blood pressure; Translations: [Hypotension, unspecified] 01-08-2022 Episodic Other circulatory disease (2 sources) Hypotension, unspecified; Translations: [Hypotension, unspecified] Episodic Other circulatory disease (2 sources) Suspected deep vein thrombosis; Translations: [Other specified symptoms and signs involving the circulatory and respiratory systems] 08-12-2023 Episodic Other connective tissue disease (20 sources) History of repair of hip joint; Translations: [Presence of right artificial hip joint] Onset: 5 03-20-2022 Chronic Other connective tissue disease (17 sources) Recurrent falls ; Translations: [Repeated falls] 03-11-2021 Episodic Other diseases of kidney and ureters (12 sources) Acute renal insufficiency; Translations: [Disorder of kidney and ureter, unspecified] 01-04-2023 Episodic Other gastrointestinal disorders (8 sources) Constipation; Translations: [Constipation, unspecified] 07-12-2023 Episodic Other infections; including parasitic (12 sources) Late effects of other and unspecified infectious and parasitic diseases; 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] 07-15-2024 Chronic Other liver diseases (2 sources) Elevated liver enzymes level; Translations: [Elevated liver enzymes] Onset: 1 07-08-2020 Episodic Other lower respiratory disease (17 sources) Dyspnea; Translations: [Shortness of breath] 10-22-2019 Episodic Other lower respiratory disease (17 sources) Restrictive lung disease; Translations: [Other disorders of lung] 10-22-2019 Episodic Other lower respiratory disease (2 sources) Other disorders of lung; Translations: [Other diseases of lung, not elsewhere classified] 06-29-2023 Episodic Other lower respiratory disease (12 sources) Respiratory insufficiency; Translations: [Other abnormalities of breathing] 07-16-2024 Episodic Other lower respiratory disease (2 sources) Shortness of breath; Translations: [Shortness of breath] Onset: Episodic Other nervous system disorders (20 sources) Disorder of brain; Translations: [Encephalopathy, unspecified] 06-22-2021 Chronic Other nervous system disorders (3 sources) Encephalopathy, unspecified; Translations: [Encephalopathy, unspecified] Onset: Chronic Other nervous system disorders (6 sources) Toxic encephalopathy; Translations: [Toxic encephalopathy] 01-29-2024 Episodic Other non-traumatic joint disorders (20 sources) Arthropathy of multiple joints; Translations: [Arthropathy, unspecified] Onset: 8 03-20-2022 Chronic Other non-traumatic joint disorders (17 sources) Acute ankle pain; Translations: [Pain in right ankle and joints of right foot] 10-23-2021 Episodic Other non-traumatic joint disorders (6 sources) Arthropathy of multiple joints; Translations: [Arthropathy of multiple sites] Onset: 8 04-12-2018 Other nutritional; endocrine; and metabolic disorders (18 sources) Morbid obesity; Translations: [Morbid (severe) obesity due to excess calories] Onset: 2 03-20-2022 Chronic Other nutritional; endocrine; and metabolic disorders (2 sources) Hypomagnesemia; Translations: [Hypomagnesemia] Onset: 1 Resolved: 1 08-25-2020 Chronic Other nutritional; endocrine; and metabolic disorders (16 sources) Obesity caused by energy imbalance; Translations: [Morbid (severe) obesity due to excess calories] Onset: 2 03-20-2022 Chronic Other nutritional; endocrine; and metabolic disorders (2 sources) Morbid (severe) obesity due to excess calories; Translations: [Morbid (severe) obesity due to excess calories (HCC)] Onset: 2 Chronic Other nutritional; endocrine; and metabolic disorders (12 sources) Body mass index 40+ - severely obese; Translations: [Body mass index (BMI) 40.0-44.9, adult] 07-15-2024 Chronic Other nutritional; endocrine; and metabolic disorders (12 sources) Alveolar hypoventilation; Translations: [Morbid (severe) obesity with alveolar hypoventilation] 07-16-2024 Chronic Other nutritional; endocrine; and metabolic disorders (1 source) Body mass index (BMI) 40.0-44.9, adult; Translations: [Body mass index [BMI] 40.0-44.9, adult] Onset: 5 Chronic Other nutritional; endocrine; and metabolic disorders (1 source) Morbid (severe) obesity with alveolar hypoventilation; Translations: [Morbid (severe) obesity with alveolar hypoventilation] Onset: 5 Chronic Other upper respiratory disease (4 sources) Acute bronchospasm; Translations: [Acute bronchospasm] 10-08-2024 Episodic Other upper respiratory infections (1 source) Chronic sinusitis, unspecified; Translations: [Chronic sinusitis, unspecified] Onset: 5 Chronic Phlebitis; thrombophlebitis and thromboembolism (20 sources) Acute deep vein thrombosis of lower limb; Translations: [Acute embolism and thrombosis of unspecified deep veins of right lower extremity] Onset: 2 08-11-2021 Episodic Pneumonia (except that caused by tuberculosis or sexually transmitted disease) (17 sources) Pneumonia; Translations: [Pneumonia, unspecified organism] 10-22-2019 Episodic Regional enteritis and ulcerative colitis (20 sources) Ulcerative colitis; Translations: [Ulcerative colitis, unspecified, without complications] Onset: 2 03-20-2022 Chronic Residual codes; unclassified (20 sources) Obstructive sleep apnea syndrome; Translations: [Obstructive sleep apnea (adult) (pediatric)] Onset: 8 04-12-2018 Chronic Residual codes; unclassified (6 sources) Obstructive sleep apnea (adult) (pediatric); Translations: [Obstructive sleep apnea (adult)(pediatric)] Onset: 5 03-05-2023 Chronic Residual codes; unclassified (8 sources) Insomnia; Translations: [Insomnia, unspecified] 06-29-2023 Episodic Residual codes; unclassified (2 sources) Insomnia, unspecified; Translations: [Insomnia, unspecified] 06-29-2023 Episodic Residual codes; unclassified (7 sources) History of operative procedure on lumbar spinal structure; Translations: [Other specified postprocedural states] 08-18-2023 Episodic Residual codes; unclassified (6 sources) Confusional state; Translations: [Disorientation, unspecified] 01-28-2024 Episodic Respiratory failure; insufficiency; arrest (adult) (20 sources) Chronic hypoxemic respiratory failure; Translations: [Chronic respiratory failure with hypoxia] Onset: 0 05-10-2020 Chronic Respiratory failure; insufficiency; arrest (adult) (20 sources) Respiratory failure; Translations: [Respiratory failure, unspecified, unspecified whether with hypoxia or hypercapnia] 11-05-2019 Episodic Septicemia (except in labor) (20 sources) Sepsis; Translations: [Sepsis, unspecified organism] 01-07-2019 Episodic Spondylosis; intervertebral disc disorders; other back problems (20 sources) Degeneration of lumbar intervertebral disc; Translations: [Other intervertebral disc degeneration, lumbar region] Onset: 8 04-12-2018 Chronic Substance-related disorders (9 sources) Tobacco user; Translations: [Nicotine dependence, unspecified, uncomplicated] Resolved: 5 12-15-2014 Chronic Substance-related disorders (3 sources) Opioid abuse, in remission; Translations: [History of opioid abuse] Onset: 1 07-08-2020 Suicide and intentional self-inflicted injury (6 sources) Suicidal thoughts; Translations: [Suicidal ideations] 01-29-2024 Episodic Superficial injury; contusion (20 sources) Contusion of forehead; Translations: [Contusion of other part of head, initial encounter] Onset: 5 04-17-2022 Episodic Thyroid disorders (1 source) Thyroid nodule; Translations: [Thyroid nodule] Chronic Unclassified (1 source) Unknown / UNK(Unknown) Onset: 8 Unclassified (6 sources) History of repair of hip joint; Translations: [History of right hip replacement] Onset: 5 04-12-2018 Unclassified (1 source) COVID-19 with pulmonary comorbidity; Translations: [COVID-19 with pulmonary comorbidity] Unclassified (2 sources) Prescribed medication regimen behavior finding; Translations: [long term care administrator prescription benzodiazepine use] Onset: 1 07-07-2020 Unclassified (1 source) Dementia in other diseases classified elsewhere, unspecified severity, with other behavioral disturbance (HCC); Translations: [Dementia in other diseases classified elsewhere, unspecified severity, with other behavioral disturbance (HCC)] Onset: 2 Unclassified (2 sources) Medication Check; Translations: [Medication Check] Onset: 3 Unclassified (1 source) Post COVID-19 condition, unspecified; Translations: [Post COVID-19 condition, unspecified] Onset: 5 Past or Other Problems Problem Classification Problem Date Documented Date Episodic/Chronic Abdominal hernia (5 sources) Diaphragmatic hernia; Translations: [Diaphragmatic hernia without obstruction or gangrene] Onset: 04-11-2011 04-11-2011 Episodic Acute and unspecified renal failure (20 sources) Injury of kidney; Translations: [Acute kidney failure, unspecified] Onset: 2024 Resolved: 11-22-2016 Episodic Alcohol-related disorders (20 sources) Alcohol dependence; Translations: [Alcohol abuse] Onset: 07-06-2020 Resolved: 12-25-2022 07-09-2020 Chronic Alcohol-related disorders (20 sources) Dementia associated with alcoholism; Translations: [Alcohol use, unspecified with alcohol-induced persisting dementia] Onset: 12-06-2021 Resolved: 02-15-2023 03-20-2022 Episodic Biliary tract disease (3 sources) Chronic cholecystitis; Translations: [Chronic cholecystitis] Onset: 09-11-2006 Resolved: 12-15-2014 12-15-2014 Episodic Chronic obstructive pulmonary disease and bronchiectasis (20 sources) Bronchitis; Translations: [Bronchitis, not specified as acute or chronic] Onset: 06-07-2022 06-07-2022 Episodic Coagulation and hemorrhagic disorders (7 sources) Secondary thrombocytopenia; Translations: [Other secondary thrombocytopenia] Onset: 06-24-2021 06-24-2021 Episodic Complications of surgical procedures or medical care (20 sources) Postoperative complication; Translations: [Unspecified complication of procedure, initial encounter] Onset: 12-06-2021 08-11-2021 Episodic Deficiency and other anemia (2 sources) Anemia, unspecified; Translations: [Anemia, unspecified] Onset: 10-24-2024 Episodic Deficiency and other anemia (1 source) Iron deficiency anemia, unspecified; Translations: [Iron deficiency anemia, unspecified] Onset: 12-13-2024 Episodic Diabetes mellitus without complication (13 sources) Acute hyperglycemia; Translations: [Hyperglycemia, unspecified] Onset: 08-13-2024 08-09-2024 Episodic Esophageal disorders (3 sources) Esophagitis; Translations: [Esophagitis, unspecified] Onset: 04-11-2011 Resolved: 12-15-2014 12-15-2014 Episodic Fluid and electrolyte disorders (20 sources) Lactic acidosis; Translations: [Hypokalemia] Onset: 08-24-2020 Resolved: 08-25-2020 08-26-2020 Episodic Fracture of lower limb (20 sources) Fracture of phalanx of foot; Translations: [Unspecified fracture of left toe(s), initial encounter for closed fracture] Onset: 12-06-2021 Episodic Gastritis and duodenitis (3 sources) Acute gastritis; Translations: [Acute gastritis without bleeding] Onset: 04-11-2011 Resolved: 12-15-2014 12-15-2014 Episodic Genitourinary symptoms and ill-defined conditions (20 sources) Pyuria; Translations: [Pyuria] Onset: 06-07-2022 Episodic Joint disorders and dislocations; trauma-related (20 sources) Subluxation of ankle joint; Translations: [Subluxation of right ankle joint, initial encounter] Onset: 12-06-2021 03-20-2022 Episodic Malaise and fatigue (10 sources) Asthenia; Translations: [Weakness] Onset: 11-10-2024 11-07-2024 Episodic Mood disorders (20 sources) Mood disorders Onset: 08-28-2022 Resolved: 12-25-2022 08-28-2022 Nausea and vomiting (20 sources) Nausea; Translations: [Nausea] Onset: 05-15-2022 05-15-2022 Episodic Noninfectious gastroenteritis (20 sources) Colitis; Translations: [Noninfective gastroenteritis and colitis, unspecified] Onset: 12-16-2018 12-16-2018 Episodic Nonmalignant breast conditions (20 sources) Breast hematoma due to non-traumatic cause; Translations: [Other specified disorders of breast] Onset: 06-07-2022 06-07-2022 Episodic Other aftercare (20 sources) Marijuana user; Translations: [Other half-way (current) drug therapy] Onset: 03-03-2021 Resolved: 08-29-2022 03-20-2022 Episodic Other aftercare (1 source) 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; Translations: [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] Onset: 11-10-2024 Episodic Other circulatory disease (20 sources) Iatrogenic hypotension; Translations: [Other hypotension] Onset: 03-03-2021 Resolved: 08-29-2022 03-20-2022 Episodic Other circulatory disease (2 sources) Other specified symptoms and signs involving the circulatory and respiratory systems; Translations: [Other specified symptoms and signs involving the circulatory and respiratory systems] Onset: 08-09-2023 Episodic Other connective tissue disease (15 sources) Paraparesis; Translations: [Other symptoms and signs involving the musculoskeletal system] Onset: 02-15-2023 02-15-2023 Episodic Other connective tissue disease (4 sources) Other symptoms and signs involving the musculoskeletal system; Translations: [Other musculoskeletal symptoms referable to limbs] Onset: 02-15-2023 02-15-2023 Episodic Other connective tissue disease (1 source) Pain in left leg; Translations: [Pain in left leg] Onset: 12-10-2024 Episodic Other disorders of stomach and duodenum (3 sources) Disorder of function of stomach; Translations: [Other diseases of stomach and duodenum] Onset: 04-11-2011 Resolved: 12-15-2014 12-15-2014 Episodic Other infections; including parasitic (20 sources) Personal history of other infectious and parasitic diseases; Translations: [Personal history of COVID-19] Onset: 12-06-2021 03-20-2022 Episodic Other injuries and conditions due to external causes (5 sources) H/O: kidney disease; Translations: [Personal history of other (healed) physical injury and trauma] Onset: 11-22-2016 11-22-2016 Episodic Other lower respiratory disease (20 sources) Hypoxemia; Translations: [Hypoxemia] Onset: 12-16-2018 12-16-2018 Episodic Other lower respiratory disease (20 sources) Disorder of diaphragm; Translations: [Disorders of diaphragm] Onset: 05-14-2020 07-27-2020 Episodic Other lower respiratory disease (1 source) Other abnormalities of breathing; Translations: [Other abnormalities of breathing] Onset: 07-21-2024 Episodic Other nervous system disorders (20 sources) Global aphasia; Translations: [Aphasia] Onset: 12-06-2021 Resolved: 08-29-2022 06-22-2021 Chronic Other nervous system disorders (20 sources) Tremor; Translations: [Tremor, unspecified] Onset: 11-21-2020 03-20-2022 Episodic Other nervous system disorders (17 sources) Ataxia; Translations: [Ataxia, unspecified] Onset: 02-15-2023 02-15-2023 Episodic Other nervous system disorders (2 sources) Ataxia, unspecified; Translations: [Ataxia, unspecified] Onset: 02-15-2023 Episodic Other non-traumatic joint disorders (5 sources) Hip pain; Translations: [Pain in right hip] Onset: 08-05-2012 Resolved: 11-22-2016 03-08-2017 Episodic Other nutritional; endocrine; and metabolic disorders (20 sources) Severe obesity; Translations: [Morbid (severe) obesity due to excess calories] Onset: 04-13-2020 Resolved: 08-29-2022 07-08-2020 Chronic Other screening for suspected conditions (not mental disorders or infectious disease) (7 sources) Patient encounter status; Translations: [Encounter for screening for diabetes mellitus] Onset: 11-10-2024 Episodic Other skin disorders (1 source) Sebaceous cyst; Translations: [Sebaceous cyst] Onset: 2024 Episodic Other upper respiratory infections (11 sources) Upper respiratory infection; Translations: [Acute upper respiratory infection, unspecified] Onset: 07-21-2024 07-21-2024 Episodic Residual codes; unclassified (1 source) Pain; Translations: [Pain, unspecified] Onset: 03-08-2017 03-08-2017 Episodic Residual codes; unclassified (20 sources) Dependent edema; Translations: [Edema, unspecified] Onset: 2019 2019 Episodic Residual codes; unclassified (20 sources) Edema of lower extremity; Translations: [Localized edema] Onset: 05-10-2020 05-10-2020 Episodic Residual codes; unclassified (20 sources) Forgetful; Translations: [Other general symptoms and signs] Onset: 12-06-2021 03-11-2021 Episodic Spondylosis; intervertebral disc disorders; other back problems (20 sources) Neck pain; Translations: [Lumbar radiculopathy] Onset: 03-08-2017 03-08-2017 Episodic Sprains and strains (1 source) Strain of muscle, fascia and tendon of lower back, initial encounter; Translations: [Strain of muscle, fascia and tendon of lower back, initial encounter] Onset: 03-08-2017 03-08-2017 Episodic Unclassified (17 sources) Readiness finding; Translations: [Desire for detoxification] 01-25-2021 Unclassified (1 source) Dementia in other diseases classified elsewhere, unspecified severity, with other behavioral disturbance (HCC); Translations: [Dementia in other diseases classified elsewhere, unspecified severity, with other behavioral disturbance (HCC)] Onset: 08-09-2023 Viral infection (20 sources) Disease caused by 2019-nCoV; Translations: [COVID-19] Onset: 05-15-2022 Resolved: 08-29-2022 10-22-2019 Episodic Results Test Name Value Interpretation Reference Range Facility Chest without Contraston Chest without Contrast Normal [facility] Emergency Department Summary on 04-13-2025 Emergency Department Summary Normal [facility] CBC W/Diff, Automatedon 02-03 Absolute Lymph 0.93 X10 3/uL Normal 0.83-4.51 [facility] Comment on above: Performed By: #### L 500.4100, L100.0100, L500.4050, [id number] ####[facility] [address] [place], [address] Absolute Neut 2.5 X10 3/uL Normal 2.0-7.7 [facility] Comment on above: Performed By: #### L 500.4100, L100.0100, [id number], [id number] ####[facility] [address] [place], [address] Basophils/100 WBC (Bld) 0.5 % Normal 0-1 [facility] Comment on above: Performed By: #### L 500.4100, L100.0100, [id number], [id number] ####[facility] [address] [place], [address] Eosinophils/100 WBC (Bld) 2.4 % Normal 0-5 [facility] Comment on above: Performed By: #### L 500.4100, L100.0100, [id number], [id number] ####[facility] [address] [place], [address] Erythrocyte distribution width (RBC) [Ratio] 13.2 % Normal 11.6-14.6 [facility] Comment on above: Performed By: #### L 500.4100, L100.0100, [id number], [id number] ####[facility] [address] [place], [address] Hematocrit (Bld) [Volume fraction] 36.9 % Low 37-47 [facility] Comment on above: Performed By: #### L 500.4100, L100.0100, L500.4050, [id number] ####[facility] [address] [place], [address] Hemoglobin (Bld) [Mass/Vol] 11.7 g/dL Low 12.0-15.0 [facility] Comment on above: Performed By: #### L 500.4100, L100.0100, [id number], [id number] ####[facility] [address] [place], [address] IG% 0.300 Normal 0.0-0.9 [facility] Comment on above: Result Comment: IG% - Immature Granulocytes (promyelocytes, myelocytes andmetamyelocytes) > 1% indicates that a LEFT SHIFT is Present. Performed By: #### L 500.4100, L100.0100, L500.4050, [id number] ####[facility] [address] [place], [address] Lymphocytes/100 WBC (Bld) 24.5 % Normal 19-41 [facility] Comment on above: Performed By: #### L 500.4100, L100.0100, [id number], [id number] ####[facility] [address] [place], [address] MCH (RBC) [Entitic mass] 30.1 pg Normal 27.0-32.0 [facility] Comment on above: Performed By: #### L 500.4100, L100.0100, [id number], [id number] ####[facility] [address] [place], [address] MCHC (RBC) [Mass/Vol] 31.7 g/dL Low 32-36 [facility] Comment on above: Performed By: #### L 500.4100, L100.0100, [id number], [id number] ####[facility] [address] [place], [address] MCV (RBC) [Entitic vol] 94.9 fL Normal 81-99 [facility] Comment on above: Performed By: #### L 500.4100, L100.0100, [id number], [id number] ####[facility] [address] [place], [address] Monocytes/100 WBC (Bld) 7.1 % Normal 0-10 [facility] Comment on above: Performed By: #### L 500.4100, L100.0100, L500.4050, [id number] ####[facility] [address] [place], [address] Neutrophils/100 WBC (Bld) 65.2 % Normal 47-70 [facility] Comment on above: Performed By: #### L 500.4100, L100.0100, L500.4050, [id number] ####[facility] [address] [place], [address] Nucleated RBC (Bld) [#/Vol] 0 10*3/uL Normal 0-5 [facility] Comment on above: Performed By: #### L 500.4100, L100.0100, L500.4050, [id number] ####[facility] [address] [place], [address] Platelet mean volume (Bld) [Entitic vol] 10.3 fL Normal 6.2-12.0 [facility] Comment on above: Performed By: #### L 500.4100, L100.0100, [id number], [id number] ####[facility] [address] [place], [address] Platelets (Bld) [#/Vol] 158 10*3/uL Normal 150-450 [facility] Comment on above: Performed By: #### L 500.4100, L100.0100, [id number], [id number] ####[facility] [address] [place], [address] RBC (Bld) [#/Vol] 3.89 10*6/uL Low 4.2-5.4 [facility] Comment on above: Performed By: #### L 500.4100, L100.0100, L500.4050, [id number] ####[facility] [address] [place], [address] RDW SD 46.2 fl High 35.1-43.9 [facility] Comment on above: Performed By: #### L 500.4100, L100.0100, L500.4050, [id number] ####[facility] [address] [place], [address] WBC (Bld) [#/Vol] 3.8 10*3/uL Low 4.4-11.0 [facility] Comment on above: Performed By: #### L 500.4100, L100.0100, L500.4050, [id number] ####[facility] [address] [place], [address] [facility] 02-26-2025 Albumin [Mass/Vol] 3.7 g/dL Normal 3.4-4.8 [facility] Comment on above: Performed By: #### L 500.4100, L100.0100, L500.4050, [id number] ####[facility] [address] [place], [address] Albumin/Globulin [Mass ratio] 1.7 {ratio} Normal 0.9-2.4 [facility] Comment on above: Performed By: #### L 500.4100, L100.0100, L500.4050, [id number] ####[facility] [address] [place], [address] ALK PHOS 103 U/L Normal 35-104 [facility] Comment on above: Performed By: #### L 500.4100, L100.0100, L500.4050, [id number] ####[facility] [address] [place], [address] ALT [Catalytic activity/Vol] 19 U/L Normal <=34 [facility] Comment on above: Performed By: #### L 500.4100, L100.0100, L500.4050, [id number] ####[facility] [address] [place], [address] AST [Catalytic activity/Vol] 29 U/L Normal <=31 [facility] Comment on above: Performed By: #### L 500.4100, L100.0100, L500.4050, [id number] ####[facility] [address] [place], [address] Bilirubin [Mass/Vol] 0.63 mg/dL Normal 0.00-1.30 [facility] Comment on above: Performed By: #### L 500.4100, L100.0100, L500.4050, [id number] ####[facility] [address] [place], [address] BUN/CRE 8.0 RATIO Low 10-20 [facility] Comment on above: Performed By: #### L 500.4100, L100.0100, L500.4050, [id number] ####[facility] [address] [place], [address] Calcium [Mass/Vol] 8.5 mg/dL Normal 7.6-11.0 [facility] Comment on above: Performed By: #### L 500.4100, L100.0100, L500.4050, [id number] ####[facility] [address] [place], [address] Chloride [Moles/Vol] 102 mmol/L Normal 98-108 [facility] Comment on above: Performed By: #### L 500.4100, L100.0100, L500.4050, [id number] ####[facility] [address] [place], [address] CO2 [Moles/Vol] 25.1 mmol/L Normal 21.0-32.0 [facility] Comment on above: Performed By: #### L 500.4100, L100.0100, L500.4050, [id number] ####[facility] [address] [place], [address] Creatinine [Mass/Vol] 1.54 mg/dL High 0.70-1.20 [facility] Comment on above: Performed By: #### L 500.4100, L100.0100, L500.4050, [id number] ####[facility] [address] [place], [address] GAP 14 Normal 5-15 [facility] Comment on above: Performed By: #### L 500.4100, L100.0100, L500.4050, [id number] ####[facility] [address] [place], [address] GFR/1.73 sq M.predicted among non-blacks MDRD (S/P/Bld) [Vol rate/Area] 38 mL/min/{1.73_m2} Low >60 [facility] Comment on above: Result Comment: mL/m in/1.73m2 CKD-EPI Creatinine Equation (2020) Performed By: #### L 500.4100, L100.0100, L500.4050, [id number] ####[facility] [address] [place], [address] Globulin (S) [Mass/Vol] 2.2 g/dL Normal 2.2-4.2 [facility] Comment on above: Performed By: #### L 500.4100, L100.0100, L500.4050, [id number] ####[facility] [address] [place], [address] Glucose [Mass/Vol] 122 mg/dL High 70-99 [facility] Comment on above: Performed By: #### L 500.4100, L100.0100, L500.4050, [id number] ####[facility] [address] [place], [address] Potassium [Moles/Vol] 3.4 mmol/L Normal 3.3-5.1 [facility] Comment on above: Performed By: #### L 500.4100, L100.0100, L500.4050, [id number] ####[facility] [address] [place], [address] Sodium [Moles/Vol] 141 mmol/L Normal 133-145 [facility] Comment on above: Performed By: #### L 500.4100, L100.0100, L500.4050, [id number] ####[facility] [address] [place], [address] T PROT 5.9 g/dL Normal 5.9-8.4 [facility] Comment on above: Performed By: #### L 500.4100, L100.0100, L500.4050, L501.9520 ####[facility] [address] [place], [address] Urea nitrogen [Mass/Vol] 12 mg/dL Normal 4-19 [facility] Comment on above: Performed By: #### L 500.4100, L100.0100, L500.4050, L501.9520 ####[facility] [address] [place], [address] Ferritinon 02-26-2025 Ferritin [Mass/Vol] 211 ng/mL Normal 22-378 [facility] Comment on above: Order Comment: Order Date: 09/30/24Order Info: [id number] - IBCOrder Info: [id number] - TED Performed By: #### L 503.6550 ####[facility] [address] [place], [address] Iron+Iron Binding Capacityon 02-26-2025 TIBC 212 ug/dL Low 250-450 [facility] Comment on above: Order Comment: Order Date: 09/30/24Order Info: [id number] - IBCOrder Info: [id number] - TED Performed By: #### L 503.6030 ####[facility] [address] [place], [address] Lipid Profileon 02-26-2025 CHOL:HDL 4.47 Normal [facility] Comment on above: Performed By: #### L 500.4100, L100.0100, L500.4050, L501.9520 ####[facility] [address] [place], [address] Cholesterol [Mass/Vol] 212 mg/dL High <=200 [facility] Comment on above: Result Comment: Chol esterol level, Desirable <200 mg/dLBorderline high cholesterol 200-239 mg/dLHigh cholesterol >=240 mg/dLRecommendations of the NCEP Adult Treatment Panel for thefollowing risk-cutoff thresholds for the [place] Americanpnemours foundation. Performed By: #### L 500.4100, L100.0100, L500.4050, L501.9520 ####[facility] [address] [place], [address] Cholesterol in HDL [Mass/Vol] 47 mg/dL Normal [facility] Comment on above: Result Comment: Sofy onal Cholesterol Education Program (NCEP) guidelines:<40 mg/dL: Low HDL-cholesterol (major risk factor for CHD)>= 60 mg/dL: High HDL-cholesterol (negative risk factor forCHD)HDL-cholesterol is affected by a number of factors, e.g.smoking, exercise, hormones, sex and age. Performed By: #### L 500.4100, L100.0100, L500.4050, L501.9520 ####[facility] [address] [place], [address] Cholesterol in LDL [Mass/Vol] 127 mg/dL Normal [facility] Comment on above: Result Comment: Bord zhqibk=255-342 mg/dL Higher Gdgh=942 mg/dL or greaterFriedwald Equation for LDL-C Performed By: #### L 500.4100, L100.0100, L500.4050, L501.9520 ####[facility] [address] [place], [address] Cholesterol in VLDL [Mass/Vol] 38 mg/dL Normal 5-40 [facility] Comment on above: Performed By: #### L 500.4100, L100.0100, L500.4050, L501.9520 ####[facility] [address] [place], [address] Triglyceride [Mass/Vol] 188 mg/dL Normal [facility] Comment on above: Result Comment: The drugs N-Acetylcysteine and Metamizole may falselydepress this assay.Normal range: <150 mg/dLBorderline High: 150-199 mg/dLHigh: 200-499 mg/dLVery High: >500 mg/dL Performed By: #### L 500.4100, L100.0100, L500.4050, L501.9520 ####[facility] [address] [place], [address] Thyroid Stim Hormone (TSH)on 02-26-2025 TSH 0.412 uIU/mL Normal 0.300-4.200 [facility] Comment on above: Performed By: #### L 500.4100, L100.0100, L500.4050, L501.9520 ####[facility] [address] [place], [address] Hepatitis Panel Acuteon 02-02 COMMENT Comment Normal . [facility] Comment on above: Result Comment: Not infected with HCV unless early or acute infection issuspected (which may be delayed in an immunocompromisedindividual), or other evidence exists to indicate HCVinfection.Performed at: [address] [id number] Director: Fidel Fowler PhD, Phone: [phone] Performed By: #### L 500.4050, L501.6710, L300.3900, L3000.0375, L100.0100, L501.9985, L504.2610, L101.9900, L3100.3425, L3400.8000 ####[facility] [address] [place], [place], [phone] HEP B CORE,IgM Negative Normal Negative [facility] Comment on above: Performed By: #### L 500.4050, L501.6710, L300.3900, L3000.0375, L100.0100, L501.9985, L504.2610, L101.9900, L3100.3425, L3400.8000 ####[facility] [address] [place], [address] HEP B SURF AG Negative Normal Negative [facility] Comment on above: Performed By: #### L 500.4050, L501.6710, L300.3900, L3000.0375, L100.0100, L501.9985, L504.2610, L101.9900, L3100.3425, L3400.8000 ####[facility] [address] [place], [address] HEP C VIRUS AB Non-Reactive Normal Non Reactive [facility] Comment on above: Performed By: #### L 500.4050, L501.6710, L300.3900, L3000.0375, L100.0100, L501.9985, L504.2610, L101.9900, L3100.3425, L3400.8000 ####[facility] [address] [place], [address] HEPATITIS A-IgM Negative Normal Negative [facility] Comment on above: Result Comment: A ne gative anti-HAV IgM result suggests no recent orcurrent HAV infection. Performed By: #### L 500.4050, L501.6710, L300.3900, L3000.0375, L100.0100, L501.9985, L504.2610, L101.9900, L3100.3425, L3400.8000 ####[facility] [address] [place], [place], [phone] LAUREN + Protein Elect, Serumon 02-20-2025 Albumin [Mass/Vol] 3.7 g/dL Normal 2.9-4.4 [facility] Comment on above: Order Comment: N Performed By: #### L 500.4050, L501.6710, L300.3900, L3000.0375, L100.0100, L501.9985, L504.2610, L101.9900, L3100.3425, L3400.8000 ####[facility] [address] [place], [place], [phone] Albumin/Globulin [Mass ratio] 1.5 {ratio} Normal 0.7-1.7 [facility] Comment on above: Order Comment: N Performed By: #### L 500.4050, L501.6710, L300.3900, L3000.0375, L100.0100, L501.9985, L504.2610, L101.9900, L3100.3425, L3400.8000 ####[facility] [address] [place], [place], [phone] GXQMU-5-KEAT 0.3 g/dL Normal 0.0-0.4 [facility] Comment on above: Order Comment: N Performed By: #### L 500.4050, L501.6710, L300.3900, L3000.0375, L100.0100, L501.9985, L504.2610, L101.9900, L3100.3425, L3400.8000 ####[facility] [address] [place], [address] TUOVB-7-CROW 0.9 g/dL Normal 0.4-1.0 [facility] Comment on above: Order Comment: N Performed By: #### L 500.4050, L501.6710, L300.3900, L3000.0375, L100.0100, L501.9985, L504.2610, L101.9900, L3100.3425, L3400.8000 ####[facility] [address] [place], [address] BETA GLOBULIN 1.0 g/dL Normal 0.7-1.3 [facility] Comment on above: Order Comment: N Performed By: #### L 500.4050, L501.6710, L300.3900, L3000.0375, L100.0100, L501.9985, L504.2610, L101.9900, L3100.3425, L3400.8000 ####[facility] [address], [address] GAMMA GLOBULIN 0.5 g/dL Normal 0.4-1.8 [facility] Comment on above: Order Comment: N Performed By: #### L 500.4050, L501.6710, L300.3900, L3000.0375, L100.0100, L501.9985, L504.2610, L101.9900, L3100.3425, L3400.8000 ####[facility] [address] [place], [address] Globulin (S) [Mass/Vol] 2.6 g/dL Normal 2.2-3.9 [facility] Comment on above: Order Comment: N Performed By: #### L 500.4050, L501.6710, L300.3900, L3000.0375, L100.0100, L501.9985, L504.2610, L101.9900, L3100.3425, L3400.8000 ####[facility] [address] [place], [address] LAUREN RESULT,S Comment: Normal . [facility] Comment on above: Order Comment: N Result Comment: Pres ence of monoclonal protein is unclear at this time. Suggestrepeat in 3 to 6 months if clinically indicated. Performed By: #### L 500.4050, L501.6710, L300.3900, L3000.0375, L100.0100, L501.9985, L504.2610, L101.9900, L3100.3425, L3400.8000 ####[facility] [address] [place], [address] IMMUNOGLOB A QN 66 mg/dL Low 87-352 [facility] Comment on above: Order Comment: N Performed By: #### L 500.4050, L501.6710, L300.3900, L3000.0375, L100.0100, L501.9985, L504.2610, L101.9900, L3100.3425, L3400.8000 ####[facility] [address] [place], [address] IMMUNOGLOB G QN 437 mg/dL Low 586-1602 [facility] Comment on above: Order Comment: N Performed By: #### L 500.4050, L501.6710, L300.3900, L3000.0375, L100.0100, L501.9985, L504.2610, L101.9900, L3100.3425, L3400.8000 ####[facility] [address] [place], [address] IMMUNOGLOB M QN 39 mg/dL Normal 26-217 [facility] Comment on above: Order Comment: N Performed By: #### L 500.4050, L501.6710, L300.3900, L3000.0375, L100.0100, L501.9985, L504.2610, L101.9900, L3100.3425, L3400.8000 ####[facility] [address] [place], [address] M-Ramesh Not Observed Normal Not Observed [facility] Comment on above: Order Comment: N Performed By: #### L 500.4050, L501.6710, L300.3900, L3000.0375, L100.0100, L501.9985, L504.2610, L101.9900, L3100.3425, L3400.8000 ####[facility] [address] [place], [address] NOTE: Comment Normal . [facility] Comment on above: Order Comment: N Result Comment: Prot ein electrophoresis scan will follow via computer,mail, or dietary tech delivery. Performed By: #### L 500.4050, L501.6710, L300.3900, L3000.0375, L100.0100, L501.9985, L504.2610, L101.9900, L3100.3425, L3400.8000 ####[facility] [address] [place], [address] Protein [Mass/Vol] 6.3 g/dL Normal 6.0-8.5 [facility] Comment on above: Order Comment: N Performed By: #### L 500.4050, L501.6710, L300.3900, L3000.0375, L100.0100, L501.9985, L504.2610, L101.9900, L3100.3425, L3400.8000 ####[facility] [address] [place], [address] Quantiferon TB-Gold+on 02-20 QFT MITOGEN HILLARY > 10.00 Normal . [facility] Comment on above: Performed By: #### L 500.4050, L501.6710, L300.3900, L3000.0375, L100.0100, L501.9985, L504.2610, L101.9900, L3100.3425, L3400.8000 ####[facility] [address] [place], [place], [phone](532) QFT NIL VALUE 0.05 IU/mL Normal . [facility] Comment on above: Performed By: #### L 500.4050, L501.6710, L300.3900, L3000.0375, L100.0100, L501.9985, L504.2610, L101.9900, L3100.3425, L3400.8000 ####[facility] [address] [place], [place], [phone]) QFT TB GOLD+ Comment Normal . [facility] Comment on above: Result Comment: Adrián tiFERON-TB Gold Plus is a qualitative indirect test forM tuberculosis infection (including disease) and isintended for use in conjunction with risk assessment,radiography, and other medical and diagnostic evaluations.The QuantiFERON-TB Gold Plus result is determined bysubtracting the Nil value from either TB antigen (Ag)value. The Mitogen tube serves as a control for the test. Performed By: #### L 500.4050, L501.6710, L300.3900, L3000.0375, L100.0100, L501.9985, L504.2610, L101.9900, L3100.3425, L3400.8000 ####[facility] [address] [place], [place], [phone] QFT TB POS CRIT Negative Normal Negative [facility] Comment on above: Result Comment: No r esponse to M tuberculosis antigens detected.Infection with M tuberculosis is unlikely, but high riskindividuals should be considered for additional testing(ATS/IDSA/CDC Clinical Practice Guidelines, 2017). Thereference range is an Antigen minus Nil result of <0.35IU/mL.The specimen received for QuantiFERON testing was incubatedby the ordering institution. Specific procedures outlinedin our Directory of Services and in the package insert forthe QuantiFERON Gold (In Tube) test must be followed toenable for proper stimulation of cells for the productionof interferon gamma. Chemiluminescence immunoassaymethodology Performed By: #### L 500.4050, L501.6710, L300.3900, L3000.0375, L100.0100, L501.9985, L504.2610, L101.9900, L3100.3425, L3400.8000 ####[facility] [address] [place], [place], [phone] QFT TB1+ AG HILLARY 0.06 IU/mL Normal . [facility] Comment on above: Performed By: #### L 500.4050, L501.6710, L300.3900, L3000.0375, L100.0100, L501.9985, L504.2610, L101.9900, L3100.3425, L3400.8000 ####[facility] [address] [place], [address] QFT TB2+ AG HILLARY 0.05 IU/mL Normal . [facility] Comment on above: Performed By: #### L 500.4050, L501.6710, L300.3900, L3000.0375, L100.0100, L501.9985, L504.2610, L101.9900, L3100.3425, L3400.8000 ####[facility] [address] [place], [place], [phone] CBC W/Diff, Automatedon 02-02 Absolute Lymph 0.95 X10 3/uL Normal 0.83-4.51 [facility] Comment on above: Performed By: #### L 500.4050, L501.6710, L300.3900, L3000.0375, L100.0100, L501.9985, L504.2610, L101.9900, L3100.3425, L3400.8000 ####[facility] [address] [place], [place], [phone] Absolute Neut 4.7 X10 3/uL Normal 2.0-7.7 [facility] Comment on above: Performed By: #### L 500.4050, L501.6710, L300.3900, L3000.0375, L100.0100, L501.9985, L504.2610, L101.9900, L3100.3425, L3400.8000 ####[facility] [address] [place], [place], [phone]) Basophils/100 WBC (Bld) 0.3 % Normal 0-1 [facility] Comment on above: Performed By: #### L 500.4050, L501.6710, L300.3900, L3000.0375, L100.0100, L501.9985, L504.2610, L101.9900, L3100.3425, L3400.8000 ####[facility] [address] [place], [address](526) Eosinophils/100 WBC (Bld) 0.3 % Normal 0-5 [facility] Comment on above: Performed By: #### L 500.4050, L501.6710, L300.3900, L3000.0375, L100.0100, L501.9985, L504.2610, L101.9900, L3100.3425, L3400.8000 ####[facility] [address] [place], [phone]) Erythrocyte distribution width (RBC) [Ratio] 13.2 % Normal 11.6-14.6 [facility] Comment on above: Performed By: #### L 500.4050, L501.6710, L300.3900, L3000.0375, L100.0100, L501.9985, L504.2610, L101.9900, L3100.3425, L3400.8000 ####[facility] [address] [place], [address](357) Hematocrit (Bld) [Volume fraction] 39.8 % Normal 37-47 [facility] Comment on above: Performed By: #### L 500.4050, L501.6710, L300.3900, L3000.0375, L100.0100, L501.9985, L504.2610, L101.9900, L3100.3425, L3400.8000 ####[facility] [address] [place], [address] Hemoglobin (Bld) [Mass/Vol] 12.9 g/dL Normal 12.0-15.0 [facility] Comment on above: Performed By: #### L 500.4050, L501.6710, L300.3900, L3000.0375, L100.0100, L501.9985, L504.2610, L101.9900, L3100.3425, L3400.8000 ####[facility] [address] [place], [place], [phone] IG% 0.200 Normal 0.0-0.9 [facility] Comment on above: Result Comment: IG% - Immature Granulocytes (promyelocytes, myelocytes andmetamyelocytes) > 1% indicates that a LEFT SHIFT is Present. Performed By: #### L 500.4050, L501.6710, L300.3900, L3000.0375, L100.0100, L501.9985, L504.2610, L101.9900, L3100.3425, L3400.8000 ####[facility] [address] [place], [address] Lymphocytes/100 WBC (Bld) 15.8 % Low 19-41 [facility] Comment on above: Performed By: #### L 500.4050, L501.6710, L300.3900, L3000.0375, L100.0100, L501.9985, L504.2610, L101.9900, L3100.3425, L3400.8000 ####[facility] [address] [place], [address] MCH (RBC) [Entitic mass] 29.8 pg Normal 27.0-32.0 [facility] Comment on above: Performed By: #### L 500.4050, L501.6710, L300.3900, L3000.0375, L100.0100, L501.9985, L504.2610, L101.9900, L3100.3425, L3400.8000 ####[facility] [address] [place], [address] MCHC (RBC) [Mass/Vol] 32.4 g/dL Normal 32-36 [facility] Comment on above: Performed By: #### L 500.4050, L501.6710, L300.3900, L3000.0375, L100.0100, L501.9985, L504.2610, L101.9900, L3100.3425, L3400.8000 ####[facility] [address] [place], [place], [phone]) MCV (RBC) [Entitic vol] 91.9 fL Normal 81-99 [facility] Comment on above: Performed By: #### L 500.4050, L501.6710, L300.3900, L3000.0375, L100.0100, L501.9985, L504.2610, L101.9900, L3100.3425, L3400.8000 ####[facility] [address] [place], [place], [phone]) Monocytes/100 WBC (Bld) 6.1 % Normal 0-10 [facility] Comment on above: Performed By: #### L 500.4050, L501.6710, L300.3900, L3000.0375, L100.0100, L501.9985, L504.2610, L101.9900, L3100.3425, L3400.8000 ####[facility] [address] [place], [place], [phone](505) Neutrophils/100 WBC (Bld) 77.3 % High 47-70 [facility] Comment on above: Performed By: #### L 500.4050, L501.6710, L300.3900, L3000.0375, L100.0100, L501.9985, L504.2610, L101.9900, L3100.3425, L3400.8000 ####[facility] [address] [place], [place], [phone]) Nucleated RBC (Bld) [#/Vol] 0 10*3/uL Normal 0-5 [facility] Comment on above: Performed By: #### L 500.4050, L501.6710, L300.3900, L3000.0375, L100.0100, L501.9985, L504.2610, L101.9900, L3100.3425, L3400.8000 ####[facility] [address] [place], [place], [phone]) Platelet mean volume (Bld) [Entitic vol] 10.3 fL Normal 6.2-12.0 [facility] Comment on above: Performed By: #### L 500.4050, L501.6710, L300.3900, L3000.0375, L100.0100, L501.9985, L504.2610, L101.9900, L3100.3425, L3400.8000 ####[facility] [address] [place], [place], [phone]) Platelets (Bld) [#/Vol] 216 10*3/uL Normal 150-450 [facility] Comment on above: Performed By: #### L 500.4050, L501.6710, L300.3900, L3000.0375, L100.0100, L501.9985, L504.2610, L101.9900, L3100.3425, L3400.8000 ####[facility] [address] [place], [address] RBC (Bld) [#/Vol] 4.33 10*6/uL Normal 4.2-5.4 [facility] Comment on above: Performed By: #### L 500.4050, L501.6710, L300.3900, L3000.0375, L100.0100, L501.9985, L504.2610, L101.9900, L3100.3425, L3400.8000 ####[facility] [address] [place], [address] RDW SD 44.3 fl High 35.1-43.9 [facility] Comment on above: Performed By: #### L 500.4050, L501.6710, L300.3900, L3000.0375, L100.0100, L501.9985, L504.2610, L101.9900, L3100.3425, L3400.8000 ####[facility] [address] [place], [place], [phone] WBC (Bld) [#/Vol] 6.0 10*3/uL Normal 4.4-11.0 [facility] Comment on above: Performed By: #### L 500.4050, L501.6710, L300.3900, L3000.0375, L100.0100, L501.9985, L504.2610, L101.9900, L3100.3425, L3400.8000 ####[facility] [address] [place], [place], [phone] CRPon 02-16-2025 C-REACTIVE PROT < 3.00 Normal 0.0-3.0 [facility] Comment on above: Performed By: #### L 500.4050, L501.6710, L300.3900, L3000.0375, L100.0100, L501.9985, L504.2610, L101.9900, L3100.3425, L3400.8000 ####[facility] [address] [place], [address] Comprehensive Metabolic Prof ilon 02-16-2025 Albumin [Mass/Vol] 4.3 g/dL Normal 3.4-4.8 [facility] Comment on above: Performed By: #### L 500.4050, L501.6710, L300.3900, L3000.0375, L100.0100, L501.9985, L504.2610, L101.9900, L3100.3425, L3400.8000 ####[facility] [address] [place], [address] Albumin/Globulin [Mass ratio] 1.8 {ratio} Normal 0.9-2.4 [facility] Comment on above: Performed By: #### L 500.4050, L501.6710, L300.3900, L3000.0375, L100.0100, L501.9985, L504.2610, L101.9900, L3100.3425, L3400.8000 ####[facility] [address] [place], [place], [phone] ALK PHOS 106 U/L High 35-104 [facility] Comment on above: Performed By: #### L 500.4050, L501.6710, L300.3900, L3000.0375, L100.0100, L501.9985, L504.2610, L101.9900, L3100.3425, L3400.8000 ####[facility] [address] [place], [address] ALT [Catalytic activity/Vol] 14 U/L Normal <=34 [facility] Comment on above: Performed By: #### L 500.4050, L501.6710, L300.3900, L3000.0375, L100.0100, L501.9985, L504.2610, L101.9900, L3100.3425, L3400.8000 ####[facility] [address] [place], [address] AST [Catalytic activity/Vol] 24 U/L Normal <=31 [facility] Comment on above: Performed By: #### L 500.4050, L501.6710, L300.3900, L3000.0375, L100.0100, L501.9985, L504.2610, L101.9900, L3100.3425, L3400.8000 ####[facility] [address] [place], [address] Bilirubin [Mass/Vol] 0.99 mg/dL Normal 0.00-1.30 [facility] Comment on above: Performed By: #### L 500.4050, L501.6710, L300.3900, L3000.0375, L100.0100, L501.9985, L504.2610, L101.9900, L3100.3425, L3400.8000 ####[facility] [address] [place], [place], [phone]) BUN/CRE 11.5 RATIO Normal 10-20 [facility] Comment on above: Performed By: #### L 500.4050, L501.6710, L300.3900, L3000.0375, L100.0100, L501.9985, L504.2610, L101.9900, L3100.3425, L3400.8000 ####[facility] [address] [place], [address] Calcium [Mass/Vol] 9.7 mg/dL Normal 7.6-11.0 [facility] Comment on above: Performed By: #### L 500.4050, L501.6710, L300.3900, L3000.0375, L100.0100, L501.9985, L504.2610, L101.9900, L3100.3425, L3400.8000 ####[facility] [address] [place], [address] Chloride [Moles/Vol] 101 mmol/L Normal 98-108 [facility] Comment on above: Performed By: #### L 500.4050, L501.6710, L300.3900, L3000.0375, L100.0100, L501.9985, L504.2610, L101.9900, L3100.3425, L3400.8000 ####[facility] [address] [place], [place], [phone](278) CO2 [Moles/Vol] 22.8 mmol/L Normal 21.0-32.0 [facility] Comment on above: Performed By: #### L 500.4050, L501.6710, L300.3900, L3000.0375, L100.0100, L501.9985, L504.2610, L101.9900, L3100.3425, L3400.8000 ####[facility] [address] [place], [place], [id number] Creatinine [Mass/Vol] 1.51 mg/dL High 0.70-1.20 [facility] Comment on above: Performed By: #### L 500.4050, L501.6710, L300.3900, L3000.0375, L100.0100, L501.9985, L504.2610, L101.9900, L3100.3425, L3400.8000 ####[facility] [address] [place], [place], [phone] GAP 14 Normal 5-15 [facility] Comment on above: Performed By: #### L 500.4050, L501.6710, L300.3900, L3000.0375, L100.0100, L501.9985, L504.2610, L101.9900, L3100.3425, L3400.8000 ####[facility] [address] [place], [place], [phone] GFR/1.73 sq M.predicted among non-blacks MDRD (S/P/Bld) [Vol rate/Area] 39 mL/min/{1.73_m2} Low >60 [facility] Comment on above: Result Comment: mL/m in/1.73m2 CKD-EPI Creatinine Equation (2020) Performed By: #### L 500.4050, L501.6710, L300.3900, L3000.0375, L100.0100, L501.9985, L504.2610, L101.9900, L3100.3425, L3400.8000 ####[facility] [address] [place], [address] Globulin (S) [Mass/Vol] 2.3 g/dL Normal 2.2-4.2 [facility] Comment on above: Performed By: #### L 500.4050, L501.6710, L300.3900, L3000.0375, L100.0100, L501.9985, L504.2610, L101.9900, L3100.3425, L3400.8000 ####[facility] [address] [place], [address] Glucose [Mass/Vol] 89 mg/dL Normal 70-99 [facility] Comment on above: Performed By: #### L 500.4050, L501.6710, L300.3900, L3000.0375, L100.0100, L501.9985, L504.2610, L101.9900, L3100.3425, L3400.8000 ####[facility] [address] [place], [address] Potassium [Moles/Vol] 3.1 mmol/L Low 3.3-5.1 [facility] Comment on above: Performed By: #### L 500.4050, L501.6710, L300.3900, L3000.0375, L100.0100, L501.9985, L504.2610, L101.9900, L3100.3425, L3400.8000 ####[facility] [address] [place], [address] Sodium [Moles/Vol] 138 mmol/L Normal 133-145 [facility] Comment on above: Performed By: #### L 500.4050, L501.6710, L300.3900, L3000.0375, L100.0100, L501.9985, L504.2610, L101.9900, L3100.3425, L3400.8000 ####[facility] [address] [place], [address] T PROT 6.6 g/dL Normal 5.9-8.4 [facility] Comment on above: Performed By: #### L 500.4050, L501.6710, L300.3900, L3000.0375, L100.0100, L501.9985, L504.2610, L101.9900, L3100.3425, L3400.8000 ####[facility] [address] [place], [place], [address] Urea nitrogen [Mass/Vol] 17 mg/dL Normal 4-19 [facility] Comment on above: Performed By: #### L 500.4050, L501.6710, L300.3900, L3000.0375, L100.0100, L501.9985, L504.2610, L101.9900, L3100.3425, L3400.8000 ####[facility] [address] [place], [place], [address] Erythrocyte Sed Rateon 02-16 SED RATE 10 mm/hr Normal 0-30 [facility] Comment on above: Performed By: #### L 500.4050, L501.6710, L300.3900, L3000.0375, L100.0100, L501.9985, L504.2610, L101.9900, L3100.3425, L3400.8000 ####[facility] [address] [place], [address] Gastroenterology Visit Repor ton 02-16-2025 Gastroenterology Visit Report Normal [facility] Hemoglobin A1con 02-16-2025 HbA1c (Bld) [Mass fraction] 4.5 % Normal <=5.6 [facility] Comment on above: Result Comment: Norm al < 5.7 % Prediabetic 5.7 - 6.4 % Diabetic >or= 6.5 % Please note range changes. Performed By: #### L 500.4050, L501.6710, L300.3900, L3000.0375, L100.0100, L501.9985, L504.2610, L101.9900, L3100.3425, L3400.8000 ####[facility] [address] [place], [address] LDHon 02-16-2025 LDH 200 U/L Normal 84-246 [facility] Comment on above: Order Comment: 1 Performed By: #### L 500.4050, L501.6710, L300.3900, L3000.0375, L100.0100, L501.9985, L504.2610, L101.9900, L3100.3425, L3400.8000 ####[facility] [address] [place], [address] Prothrombin Time w/INRon INR Coag (PPP) [Relative time] 0.9 {INR} Normal [facility] Comment on above: Performed By: #### L 500.4050, L501.6710, L300.3900, L3000.0375, L100.0100, L501.9985, L504.2610, L101.9900, L3100.3425, L3400.8000 ####[facility] [address] [place], [address] PT Coag (PPP) [Time] 12.6 s Normal 11.7-14.9 [facility] Comment on above: Performed By: #### L 500.4050, L501.6710, L300.3900, L3000.0375, L100.0100, L501.9985, L504.2610, L101.9900, L3100.3425, L3400.8000 ####[facility] [address] [place], [address] 12 Lead EKGon 01-05-2025 12 Lead EKG Normal [facility] Brain/Head without Contrasto n 01-05-2025 Brain/Head without Contrast Normal [facility] CBC W/Diff, Automatedon 08- Absolute Lymph 0.63 X10 3/uL Low 0.83-4.51 [facility] Comment on above: Performed By: #### L 500.4050, L101.9900, L100.0100 ####[facility] [address] [place], [address] Absolute Neut 2.4 X10 3/uL Normal 2.0-7.7 [facility] Comment on above: Performed By: #### L 500.4050, L101.9900, L100.0100 ####[facility] [address] [place], [address] Basophils/100 WBC (Bld) 0.6 % Normal 0-1 [facility] Comment on above: Performed By: #### L 500.4050, L101.9900, L100.0100 ####[facility] [address] [place], [address] Eosinophils/100 WBC (Bld) 0.9 % Normal 0-5 [facility] Comment on above: Performed By: #### L 500.4050, L101.9900, L100.0100 ####[facility] [address] [place], [address] Erythrocyte distribution width (RBC) [Ratio] 13.6 % Normal 11.6-14.6 [facility] Comment on above: Performed By: #### L 500.4050, L101.9900, L100.0100 ####[facility] [address] [place], [address] Hematocrit (Bld) [Volume fraction] 30.7 % Low 37-47 [facility] Comment on above: Performed By: #### L 500.4050, L101.9900, L100.0100 ####[facility] [address] [place], [address] Hemoglobin (Bld) [Mass/Vol] 9.6 g/dL Low 12.0-15.0 [facility] Comment on above: Performed By: #### L 500.4050, L101.9900, L100.0100 ####[facility] [address] [place], [address] IG% 0.600 Normal 0.0-0.9 [facility] Comment on above: Result Comment: IG% - Immature Granulocytes (promyelocytes, myelocytes andmetamyelocytes) > 1% indicates that a LEFT SHIFT is Present. Performed By: #### L 500.4050, L101.9900, L100.0100 ####[facility] [address] [place], [address] Lymphocytes/100 WBC (Bld) 17.9 % Low 19-41 [facility] Comment on above: Performed By: #### L 500.4050, L101.9900, L100.0100 ####[facility] [address] [place], [address] MCH (RBC) [Entitic mass] 30.4 pg Normal 27.0-32.0 [facility] Comment on above: Performed By: #### L 500.4050, L101.9900, L100.0100 ####[facility] [address] [place], [address] MCHC (RBC) [Mass/Vol] 31.3 g/dL Low 32-36 [facility] Comment on above: Performed By: #### L 500.4050, L101.9900, L100.0100 ####[facility] [address] [place], [address] MCV (RBC) [Entitic vol] 97.2 fL Normal 81-99 [facility] Comment on above: Performed By: #### L 500.4050, L101.9900, L100.0100 ####[facility] [address] [place], [address] Monocytes/100 WBC (Bld) 11.1 % High 0-10 [facility] Comment on above: Performed By: #### L 500.4050, L101.9900, L100.0100 ####[facility] [address] [place], [address] Neutrophils/100 WBC (Bld) 68.9 % Normal 47-70 [facility] Comment on above: Performed By: #### L 500.4050, L101.9900, L100.0100 ####[facility] [address] [place], [address] Nucleated RBC (Bld) [#/Vol] 0 10*3/uL Normal 0-5 [facility] Comment on above: Performed By: #### L 500.4050, L101.9900, L100.0100 ####[facility] [address] [place], [address] Platelet mean volume (Bld) [Entitic vol] 10.0 fL Normal 6.2-12.0 [facility] Comment on above: Performed By: #### L 500.4050, L101.9900, L100.0100 ####[facility] [address] [place], [address] Platelets (Bld) [#/Vol] 138 10*3/uL Low 150-450 [facility] Comment on above: Performed By: #### L 500.4050, L101.9900, L100.0100 ####[facility] [address] [place], [address] RBC (Bld) [#/Vol] 3.16 10*6/uL Low 4.2-5.4 [facility] Comment on above: Performed By: #### L 500.4050, L101.9900, L100.0100 ####[facility] [address] [place], [address] RDW SD 48.4 fl High 35.1-43.9 [facility] Comment on above: Performed By: #### L 500.4050, L101.9900, L100.0100 ####[facility] [address] [place], [address] WBC (Bld) [#/Vol] 3.5 10*3/uL Low 4.4-11.0 [facility] Comment on above: Performed By: #### L 500.4050, L101.9900, L100.0100 ####[facility] [address] [place], [address] CTA Head AND Neck W/ Contras ton 01-05-2025 CTA Head AND Neck W/ Contrast Normal [facility] Chest PA and Lateralon 01-05 Chest PA and Lateral Normal [facility] Comprehensive Metabolic Prof ilon 01-05-2025 Albumin [Mass/Vol] 4.1 g/dL Normal 3.4-4.8 [facility] Comment on above: Performed By: #### L 500.4050, L101.9900, L100.0100 ####[facility] [address] [place], [address] Albumin/Globulin [Mass ratio] 2.0 {ratio} Normal 0.9-2.4 [facility] Comment on above: Performed By: #### L 500.4050, L101.9900, L100.0100 ####[facility] [address] [place], [address] ALK PHOS 110 U/L High 35-104 [facility] Comment on above: Performed By: #### L 500.4050, L101.9900, L100.0100 ####[facility] [address] [place], [address] ALT [Catalytic activity/Vol] 15 U/L Normal <=34 [facility] Comment on above: Performed By: #### L 500.4050, L101.9900, L100.0100 ####[facility] [address] [place], [address] AST [Catalytic activity/Vol] 16 U/L Normal <=31 [facility] Comment on above: Performed By: #### L 500.4050, L101.9900, L100.0100 ####[facility] [address] [place], [address] Bilirubin [Mass/Vol] 0.82 mg/dL Normal 0.00-1.30 [facility] Comment on above: Performed By: #### L 500.4050, L101.9900, L100.0100 ####[facility] [address] [place], [address] BUN/CRE 15.7 RATIO Normal 10-20 [facility] Comment on above: Performed By: #### L 500.4050, L101.9900, L100.0100 ####[facility] [address] [place], [address] Calcium [Mass/Vol] 9.3 mg/dL Normal 7.6-11.0 [facility] Comment on above: Performed By: #### L 500.4050, L101.9900, L100.0100 ####[facility] [address] [place], [address] Chloride [Moles/Vol] 100 mmol/L Normal 98-108 [facility] Comment on above: Performed By: #### L 500.4050, L101.9900, L100.0100 ####[facility] [address] [place], [address] CO2 [Moles/Vol] 32.0 mmol/L Normal 21.0-32.0 [facility] Comment on above: Performed By: #### L 500.4050, L101.9900, L100.0100 ####[facility] [address] [place], [address] Creatinine [Mass/Vol] 1.21 mg/dL High 0.70-1.20 [facility] Comment on above: Performed By: #### L 500.4050, L101.9900, L100.0100 ####[facility] [address] [place], [address] GAP 9 Normal 5-15 [facility] Comment on above: Performed By: #### L 500.4050, L101.9900, L100.0100 ####[facility] [address] [place], [address] GFR/1.73 sq M.predicted among non-blacks MDRD (S/P/Bld) [Vol rate/Area] 50 mL/min/{1.73_m2} Low >60 [facility] Comment on above: Result Comment: mL/m in/1.73m2 CKD-EPI Creatinine Equation (2020) Performed By: #### L 500.4050, L101.9900, L100.0100 ####[facility] [address] [place], [address] Globulin (S) [Mass/Vol] 2.1 g/dL Low 2.2-4.2 [facility] Comment on above: Performed By: #### L 500.4050, L101.9900, L100.0100 ####[facility] [address] [place], [address] Glucose [Mass/Vol] 124 mg/dL High 70-99 [facility] Comment on above: Performed By: #### L 500.4050, L101.9900, L100.0100 ####[facility] [address] [place], [address] Potassium [Moles/Vol] 3.5 mmol/L Normal 3.3-5.1 [facility] Comment on above: Performed By: #### L 500.4050, L101.9900, L100.0100 ####[facility] [address] [place], [address] Sodium [Moles/Vol] 141 mmol/L Normal 133-145 [facility] Comment on above: Performed By: #### L 500.4050, L101.9900, L100.0100 ####[facility] [address] [place], [address] T PROT 6.1 g/dL Normal 5.9-8.4 [facility] Comment on above: Performed By: #### L 500.4050, L101.9900, L100.0100 ####[facility] [address] [place], [address] Urea nitrogen [Mass/Vol] 19 mg/dL Normal 4-19 [facility] Comment on above: Performed By: #### L 500.4050, L101.9900, L100.0100 ####[facility] [address] [place], [address] Emergency Department Summary on 01-05-2025 Emergency Department Summary Normal [facility] Erythrocyte Sed Rateon 01-05 SED RATE 8 mm/hr Normal 0-30 [facility] Comment on above: Performed By: #### L 500.4050, L101.9900, L100.0100 ####[facility] [address] [place], [address] Basic Metabolic Profile (BMP )on 12-16-2024 BUN Normal 4-19 [facility] Comment on above: Result Comment: Canc elled via OM: Order cancelled - Patient discharged Performed By: #### L 100.0100, L500.2500 ####[facility] [address] [place], [address] BUN/CRE Normal 10-20 [facility] Comment on above: Result Comment: Canc elled via OM: Order cancelled - Patient discharged Performed By: #### L 100.0100, L500.2500 ####[facility] [address] [place], [address] Calcium Normal 7.6-11.0 [facility] Comment on above: Result Comment: Canc elled via OM: Order cancelled - Patient discharged Performed By: #### L 100.0100, L500.2500 ####[facility] [address] [place], [address] CL Normal 98-108 [facility] Comment on above: Result Comment: Canc elled via OM: Order cancelled - Patient discharged Performed By: #### L 100.0100, L500.2500 ####[facility] [address] [place], [address] CO2 Normal 21.0-32.0 [facility] Comment on above: Result Comment: Canc elled via OM: Order cancelled - Patient discharged Performed By: #### L 100.0100, L500.2500 ####[facility] [address] [place], [address] CREAT,SERUM Normal 0.70-1.20 [facility] Comment on above: Result Comment: Canc elled via OM: Order cancelled - Patient discharged Performed By: #### L 100.0100, L500.2500 ####[facility] [address] [place], [address] eGFR Normal >60 [facility] Comment on above: Result Comment: Canc elled via OM: Order cancelled - Patient discharged Performed By: #### L 100.0100, L500.2500 ####[facility] [address] [place], [address] GAP Normal 5-15 [facility] Comment on above: Result Comment: Canc elled via OM: Order cancelled - Patient discharged Performed By: #### L 100.0100, L500.2500 ####[facility] [address] [place], [address] GLU Normal 70-99 [facility] Comment on above: Result Comment: Canc elled via OM: Order cancelled - Patient discharged Performed By: #### L 100.0100, L500.2500 ####[facility] [address] [place], [address] Potassium Normal 3.3-5.1 [facility] Comment on above: Result Comment: Canc elled via OM: Order cancelled - Patient discharged Performed By: #### L 100.0100, L500.2500 ####[facility] [address] [place], [address] Basic Metabolic Profile (BMP) Normal 133-145 [facility] Comment on above: Result Comment: Canc elled via OM: Order cancelled - Patient discharged Performed By: #### L 100.0100, L500.2500 ####[facility] [address] [place], [address] CBC W/Diff, Automatedon 07-1 Absolute Neut Normal 2.0-7.7 [facility] Comment on above: Result Comment: Canc elled via OM: Order cancelled - Patient discharged Performed By: #### L 100.0100, L500.2500 ####[facility] [address] [place], [address] HCT Normal 37-47 [facility] Comment on above: Result Comment: Canc elled via OM: Order cancelled - Patient discharged Performed By: #### L 100.0100, L500.2500 ####[facility] [address] [place], [address] HGB Normal 12.0-15.0 [facility] Comment on above: Result Comment: Canc elled via OM: Order cancelled - Patient discharged Performed By: #### L 100.0100, L500.2500 ####[facility] [address] [place], [address] MCH Normal 27.0-32.0 [facility] Comment on above: Result Comment: Canc elled via OM: Order cancelled - Patient discharged Performed By: #### L 100.0100, L500.2500 ####[facility] [address] [place], [address] MCHC Normal 32-36 [facility] Comment on above: Result Comment: Canc elled via OM: Order cancelled - Patient discharged Performed By: #### L 100.0100, L500.2500 ####[facility] [address] [place], [address] MCV Normal 81-99 [facility] Comment on above: Result Comment: Canc elled via OM: Order cancelled - Patient discharged Performed By: #### L 100.0100, L500.2500 ####[facility] [address] [place], [address] NEUT% Normal 47-70 [facility] Comment on above: Result Comment: Canc elled via OM: Order cancelled - Patient discharged Performed By: #### L 100.0100, L500.2500 ####[facility] [address] [place], [address] PLT Normal 150-450 [facility] Comment on above: Result Comment: Canc elled via OM: Order cancelled - Patient discharged Performed By: #### L 100.0100, L500.2500 ####[facility] [address] [place], [address] RBC Normal 4.2-5.4 [facility] Comment on above: Result Comment: Canc elled via OM: Order cancelled - Patient discharged Performed By: #### L 100.0100, L500.2500 ####[facility] [address] [place], [address] RDW CV Normal 11.6-14.6 [facility] Comment on above: Result Comment: Canc elled via OM: Order cancelled - Patient discharged Performed By: #### L 100.0100, L500.2500 ####[facility] [address] [place], [address] RDW SD Normal 35.1-43.9 [facility] Comment on above: Result Comment: Canc elled via OM: Order cancelled - Patient discharged Performed By: #### L 100.0100, L500.2500 ####[facility] [address] [place], [address] WBC Normal 4.4-11.0 [facility] Comment on above: Result Comment: Canc elled via OM: Order cancelled - Patient discharged Performed By: #### L 100.0100, L500.2500 ####[facility] [address] [place], [address] Basic Metabolic Profile (BMP )on 12-09-2024 BUN Normal 4-19 [facility] Comment on above: Result Comment: Canc elled via OM: Order cancelled - Patient discharged Performed By: #### L 100.0100, L500.2500 ####[facility] [address] [place], [address] BUN/CRE Normal 10-20 [facility] Comment on above: Result Comment: Canc elled via OM: Order cancelled - Patient discharged Performed By: #### L 100.0100, L500.2500 ####[facility] [address] [place], [address] Calcium Normal 7.6-11.0 [facility] Comment on above: Result Comment: Canc elled via OM: Order cancelled - Patient discharged Performed By: #### L 100.0100, L500.2500 ####[facility] [address] [place], [address] CL Normal 98-108 [facility] Comment on above: Result Comment: Canc elled via OM: Order cancelled - Patient discharged Performed By: #### L 100.0100, L500.2500 ####[facility] [address] [place], [address] CO2 Normal 21.0-32.0 [facility] Comment on above: Result Comment: Canc elled via OM: Order cancelled - Patient discharged Performed By: #### L 100.0100, L500.2500 ####[facility] [address] [place], [address] CREAT,SERUM Normal 0.70-1.20 [facility] Comment on above: Result Comment: Canc elled via OM: Order cancelled - Patient discharged Performed By: #### L 100.0100, L500.2500 ####[facility] [address] [place], [address] eGFR Normal >60 [facility] Comment on above: Result Comment: Canc elled via OM: Order cancelled - Patient discharged Performed By: #### L 100.0100, L500.2500 ####[facility] [address] [place], [address] GAP Normal 5-15 [facility] Comment on above: Result Comment: Canc elled via OM: Order cancelled - Patient discharged Performed By: #### L 100.0100, L500.2500 ####[facility] [address] [place], [address] GLU Normal 70-99 [facility] Comment on above: Result Comment: Canc elled via OM: Order cancelled - Patient discharged Performed By: #### L 100.0100, L500.2500 ####[facility] [address] [place], [address] Potassium Normal 3.3-5.1 [facility] Comment on above: Result Comment: Canc elled via OM: Order cancelled - Patient discharged Performed By: #### L 100.0100, L500.2500 ####[facility] [address] [place], [address] Basic Metabolic Profile (BMP) Normal 133-145 [facility] Comment on above: Result Comment: Canc elled via OM: Order cancelled - Patient discharged Performed By: #### L 100.0100, L500.2500 ####[facility] [address] [place], [address] CBC W/Diff, Automatedon 07-0 8-2024 Absolute Neut Normal 2.0-7.7 [facility] Comment on above: Result Comment: Canc elled via OM: Order cancelled - Patient discharged Performed By: #### L 100.0100, L500.2500 ####[facility] [address] [place], [address] HCT Normal 37-47 [facility] Comment on above: Result Comment: Canc elled via OM: Order cancelled - Patient discharged Performed By: #### L 100.0100, L500.2500 ####[facility] [address] [place], [address] HGB Normal 12.0-15.0 [facility] Comment on above: Result Comment: Canc elled via OM: Order cancelled - Patient discharged Performed By: #### L 100.0100, L500.2500 ####[facility] [address] [place], [address] MCH Normal 27.0-32.0 [facility] Comment on above: Result Comment: Canc elled via OM: Order cancelled - Patient discharged Performed By: #### L 100.0100, L500.2500 ####[facility] [address] [place], [address] MCHC Normal 32-36 [facility] Comment on above: Result Comment: Canc elled via OM: Order cancelled - Patient discharged Performed By: #### L 100.0100, L500.2500 ####[facility] [address] [place], [address] MCV Normal 81-99 [facility] Comment on above: Result Comment: Canc elled via OM: Order cancelled - Patient discharged Performed By: #### L 100.0100, L500.2500 ####[facility] [address] [place], [address] NEUT% Normal 47-70 [facility] Comment on above: Result Comment: Canc elled via OM: Order cancelled - Patient discharged Performed By: #### L 100.0100, L500.2500 ####[facility] [address] [place], [address] PLT Normal 150-450 [facility] Comment on above: Result Comment: Canc elled via OM: Order cancelled - Patient discharged Performed By: #### L 100.0100, L500.2500 ####[facility] [address] [place], [address] RBC Normal 4.2-5.4 [facility] Comment on above: Result Comment: Canc elled via OM: Order cancelled - Patient discharged Performed By: #### L 100.0100, L500.2500 ####[facility] [address] [place], [address] RDW CV Normal 11.6-14.6 [facility] Comment on above: Result Comment: Canc elled via OM: Order cancelled - Patient discharged Performed By: #### L 100.0100, L500.2500 ####[facility] [address] [place], [address] RDW SD Normal 35.1-43.9 [facility] Comment on above: Result Comment: Canc elled via OM: Order cancelled - Patient discharged Performed By: #### L 100.0100, L500.2500 ####[facility] [address] [place], [address] WBC Normal 4.4-11.0 [facility] Comment on above: Result Comment: Canc elled via OM: Order cancelled - Patient discharged Performed By: #### L 100.0100, L500.2500 ####[facility] [address] [place], [address] CBC W/Diff, Automatedon 07-0 3-2025 Absolute Lymph 1.35 X10 3/uL Normal 0.83-4.51 [facility] Comment on above: Performed By: #### L 3890.6301, L501.9520, L100.0100, L500.4050, L500.4100, L506.1001 ####[facility] [address] [place], [address] Absolute Neut 3.2 X10 3/uL Normal 2.0-7.7 [facility] Comment on above: Performed By: #### L 3890.6301, L501.9520, L100.0100, L500.4050, L500.4100, L506.1001 ####[facility] [address] [place], [address] Basophils/100 WBC (Bld) 0.6 % Normal 0-1 [facility] Comment on above: Performed By: #### L 3890.6301, L501.9520, L100.0100, L500.4050, L500.4100, L506.1001 ####[facility] [address], [address] Eosinophils/100 WBC (Bld) 1.8 % Normal 0-5 [facility] Comment on above: Performed By: #### L 3890.6301, L501.9520, L100.0100, L500.4050, L500.4100, L506.1001 ####[facility] [address] [place], [address] Erythrocyte distribution width (RBC) [Ratio] 15.8 % High 11.6-14.6 [facility] Comment on above: Performed By: #### L 3890.6301, L501.9520, L100.0100, L500.4050, L500.4100, L506.1001 ####[facility] [address] [place], [address] Hematocrit (Bld) [Volume fraction] 30.0 % Low 37-47 [facility] Comment on above: Performed By: #### L 3890.6301, L501.9520, L100.0100, L500.4050, L500.4100, L506.1001 ####[facility] [address] [place], [address] Hemoglobin (Bld) [Mass/Vol] 9.1 g/dL Low 12.0-15.0 [facility] Comment on above: Performed By: #### L 3890.6301, L501.9520, L100.0100, L500.4050, L500.4100, L506.1001 ####[facility] [address] [place], [address] IG% 0.400 Normal 0.0-0.9 [facility] Comment on above: Result Comment: IG% - Immature Granulocytes (promyelocytes, myelocytes andmetamyelocytes) > 1% indicates that a LEFT SHIFT is Present. Performed By: #### L 3890.6301, L501.9520, L100.0100, L500.4050, L500.4100, L506.1001 ####[facility] [address] [place], [address] Lymphocytes/100 WBC (Bld) 26.4 % Normal 19-41 [facility] Comment on above: Performed By: #### L 3890.6301, L501.9520, L100.0100, L500.4050, L500.4100, L506.1001 ####[facility] [address] [place], [address] MCH (RBC) [Entitic mass] 29.2 pg Normal 27.0-32.0 [facility] Comment on above: Performed By: #### L 3890.6301, L501.9520, L100.0100, L500.4050, L500.4100, L506.1001 ####[facility] [address] [place], [address] MCHC (RBC) [Mass/Vol] 30.3 g/dL Low 32-36 [facility] Comment on above: Performed By: #### L 3890.6301, L501.9520, L100.0100, L500.4050, L500.4100, L506.1001 ####[facility] [address] [place], [address] MCV (RBC) [Entitic vol] 96.2 fL Normal 81-99 [facility] Comment on above: Performed By: #### L 3890.6301, L501.9520, L100.0100, L500.4050, L500.4100, L506.1001 ####[facility] [address] [place], [address] Monocytes/100 WBC (Bld) 8.6 % Normal 0-10 [facility] Comment on above: Performed By: #### L 3890.6301, L501.9520, L100.0100, L500.4050, L500.4100, L506.1001 ####[facility] [address] [place], [address] Neutrophils/100 WBC (Bld) 62.2 % Normal 47-70 [facility] Comment on above: Performed By: #### L 3890.6301, L501.9520, L100.0100, L500.4050, L500.4100, L506.1001 ####[facility] [address] [place], [address] Nucleated RBC (Bld) [#/Vol] 0 10*3/uL Normal 0-5 [facility] Comment on above: Performed By: #### L 3890.6301, L501.9520, L100.0100, L500.4050, L500.4100, L506.1001 ####[facility] [address] [place], [address] Platelet mean volume (Bld) [Entitic vol] 9.8 fL Normal 6.2-12.0 [facility] Comment on above: Performed By: #### L 3890.6301, L501.9520, L100.0100, L500.4050, L500.4100, L506.1001 ####[facility] [address] [place], [address] Platelets (Bld) [#/Vol] 148 10*3/uL Low 150-450 [facility] Comment on above: Performed By: #### L 3890.6301, L501.9520, L100.0100, L500.4050, L500.4100, L506.1001 ####[facility] [address] [place], [address] RBC (Bld) [#/Vol] 3.12 10*6/uL Low 4.2-5.4 [facility] Comment on above: Performed By: #### L 3890.6301, L501.9520, L100.0100, L500.4050, L500.4100, L506.1001 ####[facility] [address] [place], [address] RDW SD 55.5 fl High 35.1-43.9 [facility] Comment on above: Performed By: #### L 3890.6301, L501.9520, L100.0100, L500.4050, L500.4100, L506.1001 ####[facility] [address] [place], [address] WBC (Bld) [#/Vol] 5.1 10*3/uL Normal 4.4-11.0 [facility] Comment on above: Performed By: #### L 3890.6301, L501.9520, L100.0100, L500.4050, L500.4100, L506.1001 ####[facility] [address] [place], [address] Comprehensive Metabolic Prof ilon 12-04-2024 Albumin [Mass/Vol] 3.9 g/dL Normal 3.4-4.8 [facility] Comment on above: Performed By: #### L 3890.6301, L501.9520, L100.0100, L500.4050, L500.4100, L506.1001 ####[facility] [address] [place], [address] Albumin/Globulin [Mass ratio] 2.1 {ratio} Normal 0.9-2.4 [facility] Comment on above: Performed By: #### L 3890.6301, L501.9520, L100.0100, L500.4050, L500.4100, L506.1001 ####[facility] [address] [place], [address] ALK PHOS 134 U/L High 35-104 [facility] Comment on above: Performed By: #### L 3890.6301, L501.9520, L100.0100, L500.4050, L500.4100, L506.1001 ####[facility] [address] [place], [address] ALT [Catalytic activity/Vol] 24 U/L Normal <=34 [facility] Comment on above: Performed By: #### L 3890.6301, L501.9520, L100.0100, L500.4050, L500.4100, L506.1001 ####[facility] [address] [place], [address] AST [Catalytic activity/Vol] 30 U/L Normal <=31 [facility] Comment on above: Performed By: #### L 3890.6301, L501.9520, L100.0100, L500.4050, L500.4100, L506.1001 ####[facility] [address] [place], [address] Bilirubin [Mass/Vol] 1.05 mg/dL Normal 0.00-1.30 [facility] Comment on above: Performed By: #### L 3890.6301, L501.9520, L100.0100, L500.4050, L500.4100, L506.1001 ####[facility] [address] [place], [address] BUN/CRE 15.8 RATIO Normal 10-20 [facility] Comment on above: Performed By: #### L 3890.6301, L501.9520, L100.0100, L500.4050, L500.4100, L506.1001 ####[facility] [address] [place], [address] Calcium [Mass/Vol] 9.2 mg/dL Normal 7.6-11.0 [facility] Comment on above: Performed By: #### L 3890.6301, L501.9520, L100.0100, L500.4050, L500.4100, L506.1001 ####[facility] [address] [place], [address] Chloride [Moles/Vol] 104 mmol/L Normal 98-108 [facility] Comment on above: Performed By: #### L 3890.6301, L501.9520, L100.0100, L500.4050, L500.4100, L506.1001 ####[facility] [address] [place], [address] CO2 [Moles/Vol] 27.7 mmol/L Normal 21.0-32.0 [facility] Comment on above: Performed By: #### L 3890.6301, L501.9520, L100.0100, L500.4050, L500.4100, L506.1001 ####[facility] [address] [place], [address] Creatinine [Mass/Vol] 1.58 mg/dL High 0.70-1.20 [facility] Comment on above: Performed By: #### L 3890.6301, L501.9520, L100.0100, L500.4050, L500.4100, L506.1001 ####[facility] [address] [place], [address] GAP 9 Normal 5-15 [facility] Comment on above: Performed By: #### L 3890.6301, L501.9520, L100.0100, L500.4050, L500.4100, L506.1001 ####[facility] [address] [place], [address] GFR/1.73 sq M.predicted among non-blacks MDRD (S/P/Bld) [Vol rate/Area] 37 mL/min/{1.73_m2} Low >60 [facility] Comment on above: Result Comment: mL/m in/1.73m2 CKD-EPI Creatinine Equation (2020) Performed By: #### L 3890.6301, L501.9520, L100.0100, L500.4050, L500.4100, L506.1001 ####[facility] [address] [place], [address] Globulin (S) [Mass/Vol] 1.9 g/dL Low 2.2-4.2 [facility] Comment on above: Performed By: #### L 3890.6301, L501.9520, L100.0100, L500.4050, L500.4100, L506.1001 ####[facility] [address] [place], [address] Glucose [Mass/Vol] 104 mg/dL High 70-99 [facility] Comment on above: Performed By: #### L 3890.6301, L501.9520, L100.0100, L500.4050, L500.4100, L506.1001 ####[facility] [address] [place], [address] Potassium [Moles/Vol] 4.0 mmol/L Normal 3.3-5.1 [facility] Comment on above: Performed By: #### L 3890.6301, L501.9520, L100.0100, L500.4050, L500.4100, L506.1001 ####[facility] [address] [place], [address] Sodium [Moles/Vol] 141 mmol/L Normal 133-145 [facility] Comment on above: Performed By: #### L 3890.6301, L501.9520, L100.0100, L500.4050, L500.4100, L506.1001 ####[facility] [address] [place], [address] T PROT 5.8 g/dL Low 5.9-8.4 [facility] Comment on above: Performed By: #### L 3890.6301, L501.9520, L100.0100, L500.4050, L500.4100, L506.1001 ####[facility] [address] [place], [place], [address] Urea nitrogen [Mass/Vol] 25 mg/dL High 4-19 [facility] Comment on above: Performed By: #### L 3890.6301, L501.9520, L100.0100, L500.4050, L500.4100, L506.1001 ####[facility] [address] [place], [address] Hepatitis C Antibodyon 12-04 Hepatitis C Ab Non-Reactive Normal Nonreactive [facility] Comment on above: Result Comment: Reac tive: Presumptive evidence of antibodies to HCV. [facility] for supplemental testing.Non-Reactive: Antibodies to HCV were not detected; does notexclude the possibility of exposure to HCVReactive Results are presumptive evidence of antibodies toHCV. Follow CDC recommendations for supplemental testing.Order confirmation testing: HCV Quant by PCR testing -HCVPCR #[id number] Non Reactive: < 0.8 Equivocal: >/= 0.8 to < 1.0 Reactive: >/= 1.0The CDC requires that a reactive/equivocal HCV antibodyresult be sent out for confirmation. HCV Quant by PCRtesting. Performed By: #### L 3890.6301, L501.9520, L100.0100, L500.4050, L500.4100, L506.1001 ####[facility] [address] [place], [address] Lipid Profileon 12-04-2024 CHOL:HDL 1.99 Normal [facility] Comment on above: Performed By: #### L 3890.6301, L501.9520, L100.0100, L500.4050, L500.4100, L506.1001 ####[facility] [address] [place], [address] Cholesterol [Mass/Vol] 138 mg/dL Normal <=200 [facility] Comment on above: Result Comment: Chol esterol level, Desirable <200 mg/dLBorderline high cholesterol 200-239 mg/dLHigh cholesterol >=240 mg/dLRecommendations of the NCEP Adult Treatment Panel for thefollowing risk-cutoff thresholds for the [place] Americanpulation. Performed By: #### L 3890.6301, L501.9520, L100.0100, L500.4050, L500.4100, L506.1001 ####[facility] [address] [place], [address] Cholesterol in HDL [Mass/Vol] 69 mg/dL Normal [facility] Comment on above: Result Comment: Sofy onal Cholesterol Education Program (NCEP) guidelines:<40 mg/dL: Low HDL-cholesterol (major risk factor for CHD)>= 60 mg/dL: High HDL-cholesterol (negative risk factor forCHD)HDL-cholesterol is affected by a number of factors, e.g.smoking, exercise, hormones, sex and age. Performed By: #### L 3890.6301, L501.9520, L100.0100, L500.4050, L500.4100, L506.1001 ####[facility] [address] [place], [address] Cholesterol in LDL [Mass/Vol] 42 mg/dL Normal [facility] Comment on above: Result Comment: Bord gtrdwh=290-083 mg/dL Higher Qcfd=577 mg/dL or greater Performed By: #### L 3890.6301, L501.9520, L100.0100, L500.4050, L500.4100, L506.1001 ####[facility] [address] [place], [address] Cholesterol in VLDL [Mass/Vol] 27 mg/dL Normal 5-40 [facility] Comment on above: Performed By: #### L 3890.6301, L501.9520, L100.0100, L500.4050, L500.4100, L506.1001 ####[facility] [address] [place], [address] Triglyceride [Mass/Vol] 133 mg/dL Normal [facility] Comment on above: Result Comment: The drugs N-Acetylcysteine and Metamizole may falselydepress this assay.Normal range: <150 mg/dLBorderline High: 150-199 mg/dLHigh: 200-499 mg/dLVery High: >500 mg/dL Performed By: #### L 3890.6301, L501.9520, L100.0100, L500.4050, L500.4100, L506.1001 ####[facility] [address] [place], [address] Thyroid Stim Hormone (TSH)on 12-04-2024 TSH 1.450 uIU/mL Normal 0.300-4.200 [facility] Comment on above: Performed By: #### L 3890.6301, L501.9520, L100.0100, L500.4050, L500.4100, L506.1001 ####[facility] [address] [place], [address] Vitamin D,25 Hydroxyon 12-04 Vitamin D 25-OH 40.7 ng/mL Normal 30-100 [facility] Comment on above: Result Comment: Kaycee min D StatusDeficiency: <20 ng/mL (50nmol/L)Insufficiency: 20-30 ng/mL (50-75 nmol/L)Sufficiency: 30-100 ng/mL (75-250 nmol/L)Toxicity: >100 ng/mL (>250 nmol/L) Performed By: #### L 3890.6301, L501.9520, L100.0100, L500.4050, L500.4100, L506.1001 ####[facility] [address] [place], [address] Basic Metabolic Profile (BMP )on 2024 BUN Normal 4-19 [facility] Comment on above: Result Comment: Canc elled via OM: Order cancelled - Patient discharged Performed By: #### L 100.0100, L500.2500 ####[facility] [address] [place], [address] BUN/CRE Normal 10-20 [facility] Comment on above: Result Comment: Canc elled via OM: Order cancelled - Patient discharged Performed By: #### L 100.0100, L500.2500 ####[facility] [address] [place], [address] Calcium Normal 7.6-11.0 [facility] Comment on above: Result Comment: Canc elled via OM: Order cancelled - Patient discharged Performed By: #### L 100.0100, L500.2500 ####[facility] [address] [place], [address] CL Normal 98-108 [facility] Comment on above: Result Comment: Canc elled via OM: Order cancelled - Patient discharged Performed By: #### L 100.0100, L500.2500 ####[facility] [address] [place], [address] CO2 Normal 21.0-32.0 [facility] Comment on above: Result Comment: Canc elled via OM: Order cancelled - Patient discharged Performed By: #### L 100.0100, L500.2500 ####[facility] [address] [place], [address] CREAT,SERUM Normal 0.70-1.20 [facility] Comment on above: Result Comment: Canc elled via OM: Order cancelled - Patient discharged Performed By: #### L 100.0100, L500.2500 ####[facility] [address] [place], [address] eGFR Normal >60 [facility] Comment on above: Result Comment: Canc elled via OM: Order cancelled - Patient discharged Performed By: #### L 100.0100, L500.2500 ####[facility] [address] [place], [address] GAP Normal 5-15 [facility] Comment on above: Result Comment: Canc elled via OM: Order cancelled - Patient discharged Performed By: #### L 100.0100, L500.2500 ####[facility] [address] [place], [address] GLU Normal 70-99 [facility] Comment on above: Result Comment: Canc elled via OM: Order cancelled - Patient discharged Performed By: #### L 100.0100, L500.2500 ####[facility] [address] [place], [address] Potassium Normal 3.3-5.1 [facility] Comment on above: Result Comment: Canc elled via OM: Order cancelled - Patient discharged Performed By: #### L 100.0100, L500.2500 ####[facility] [address] [place], [address] Basic Metabolic Profile (BMP) Normal 133-145 [facility] Comment on above: Result Comment: Canc elled via OM: Order cancelled - Patient discharged Performed By: #### L 100.0100, L500.2500 ####[facility] [address] [place], [address] CBC W/Diff, Automatedon 07-0 -2024 Absolute Neut Normal 2.0-7.7 [facility] Comment on above: Result Comment: Canc elled via OM: Order cancelled - Patient discharged Performed By: #### L 100.0100, L500.2500 ####[facility] [address] [place], [address] HCT Normal 37-47 [facility] Comment on above: Result Comment: Canc elled via OM: Order cancelled - Patient discharged Performed By: #### L 100.0100, L500.2500 ####[facility] [address] [place], [address] HGB Normal 12.0-15.0 [facility] Comment on above: Result Comment: Canc elled via OM: Order cancelled - Patient discharged Performed By: #### L 100.0100, L500.2500 ####[facility] [address] [place], [address] MCH Normal 27.0-32.0 [facility] Comment on above: Result Comment: Canc elled via OM: Order cancelled - Patient discharged Performed By: #### L 100.0100, L500.2500 ####[facility] [address] [place], [address] MCHC Normal 32-36 [facility] Comment on above: Result Comment: Canc elled via OM: Order cancelled - Patient discharged Performed By: #### L 100.0100, L500.2500 ####[facility] [address] [place], [address] MCV Normal 81-99 [facility] Comment on above: Result Comment: Canc elled via OM: Order cancelled - Patient discharged Performed By: #### L 100.0100, L500.2500 ####[facility] [address] [place], [address] NEUT% Normal 47-70 [facility] Comment on above: Result Comment: Canc elled via OM: Order cancelled - Patient discharged Performed By: #### L 100.0100, L500.2500 ####[facility] [address] [place], [address] PLT Normal 150-450 [facility] Comment on above: Result Comment: Canc elled via OM: Order cancelled - Patient discharged Performed By: #### L 100.0100, L500.2500 ####[facility] [address] [place], [address] RBC Normal 4.2-5.4 [facility] Comment on above: Result Comment: Canc elled via OM: Order cancelled - Patient discharged Performed By: #### L 100.0100, L500.2500 ####[facility] [address] [place], [address] RDW CV Normal 11.6-14.6 [facility] Comment on above: Result Comment: Canc elled via OM: Order cancelled - Patient discharged Performed By: #### L 100.0100, L500.2500 ####[facility] [address] [place], [address] RDW SD Normal 35.1-43.9 [facility] Comment on above: Result Comment: Canc elled via OM: Order cancelled - Patient discharged Performed By: #### L 100.0100, L500.2500 ####[facility] [address] [place], [address] WBC Normal 4.4-11.0 [facility] Comment on above: Result Comment: Canc elled via OM: Order cancelled - Patient discharged Performed By: #### L 100.0100, L500.2500 ####[facility] [address] [place], [address] Basic Metabolic Profile (BMP )on 11-25-2024 BUN Normal 4-19 [facility] Comment on above: Result Comment: Canc elled via OM: Order cancelled - Patient discharged Performed By: #### L 500.2500, L100.0100 ####[facility] [address] [place], [address] BUN/CRE Normal 10-20 [facility] Comment on above: Result Comment: Canc elled via OM: Order cancelled - Patient discharged Performed By: #### L 500.2500, L100.0100 ####[facility] [address] [place], [address] Calcium Normal 7.6-11.0 [facility] Comment on above: Result Comment: Canc elled via OM: Order cancelled - Patient discharged Performed By: #### L 500.2500, L100.0100 ####[facility] [address] [place], [address] CL Normal 98-108 [facility] Comment on above: Result Comment: Canc elled via OM: Order cancelled - Patient discharged Performed By: #### L 500.2500, L100.0100 ####[facility] [address] [place], [address] CO2 Normal 21.0-32.0 [facility] Comment on above: Result Comment: Canc elled via OM: Order cancelled - Patient discharged Performed By: #### L 500.2500, L100.0100 ####[facility] [address] [place], [address] CREAT,SERUM Normal 0.70-1.20 [facility] Comment on above: Result Comment: Canc elled via OM: Order cancelled - Patient discharged Performed By: #### L 500.2500, L100.0100 ####[facility] [address] [place], [address] eGFR Normal >60 [facility] Comment on above: Result Comment: Canc elled via OM: Order cancelled - Patient discharged Performed By: #### L 500.2500, L100.0100 ####[facility] [address] [place], [address] GAP Normal 5-15 [facility] Comment on above: Result Comment: Canc elled via OM: Order cancelled - Patient discharged Performed By: #### L 500.2500, L100.0100 ####[facility] [address] [place], [address] GLU Normal 70-99 [facility] Comment on above: Result Comment: Canc elled via OM: Order cancelled - Patient discharged Performed By: #### L 500.2500, L100.0100 ####[facility] [address] [place], [address] Potassium Normal 3.3-5.1 [facility] Comment on above: Result Comment: Canc elled via OM: Order cancelled - Patient discharged Performed By: #### L 500.2500, L100.0100 ####[facility] [address] [place], [address] Basic Metabolic Profile (BMP) Normal 133-145 [facility] Comment on above: Result Comment: Canc elled via OM: Order cancelled - Patient discharged Performed By: #### L 500.2500, L100.0100 ####[facility] [address] [place], [address] CBC W/Diff, Automatedon 06-2 Absolute Neut Normal 2.0-7.7 [facility] Comment on above: Result Comment: Canc elled via OM: Order cancelled - Patient discharged Performed By: #### L 500.2500, L100.0100 ####[facility] [address] [place], [address] HCT Normal 37-47 [facility] Comment on above: Result Comment: Canc elled via OM: Order cancelled - Patient discharged Performed By: #### L 500.2500, L100.0100 ####[facility] [address] [place], [address] HGB Normal 12.0-15.0 [facility] Comment on above: Result Comment: Canc elled via OM: Order cancelled - Patient discharged Performed By: #### L 500.2500, L100.0100 ####[facility] [address] [place], [address] MCH Normal 27.0-32.0 [facility] Comment on above: Result Comment: Canc elled via OM: Order cancelled - Patient discharged Performed By: #### L 500.2500, L100.0100 ####[facility] [address] [place], [address] MCHC Normal 32-36 [facility] Comment on above: Result Comment: Canc elled via OM: Order cancelled - Patient discharged Performed By: #### L 500.2500, L100.0100 ####[facility] [address] [place], [address] MCV Normal 81-99 [facility] Comment on above: Result Comment: Canc elled via OM: Order cancelled - Patient discharged Performed By: #### L 500.2500, L100.0100 ####[facility] [address] [place], [address] NEUT% Normal 47-70 [facility] Comment on above: Result Comment: Canc elled via OM: Order cancelled - Patient discharged Performed By: #### L 500.2500, L100.0100 ####[facility] [address] [place], [address] PLT Normal 150-450 [facility] Comment on above: Result Comment: Canc elled via OM: Order cancelled - Patient discharged Performed By: #### L 500.2500, L100.0100 ####[facility] [address] [place], [address] RBC Normal 4.2-5.4 [facility] Comment on above: Result Comment: Canc elled via OM: Order cancelled - Patient discharged Performed By: #### L 500.2500, L100.0100 ####[facility] [address] [place], [address] RDW CV Normal 11.6-14.6 [facility] Comment on above: Result Comment: Canc elled via OM: Order cancelled - Patient discharged Performed By: #### L 500.2500, L100.0100 ####[facility] [address] [place], [address] RDW SD Normal 35.1-43.9 [facility] Comment on above: Result Comment: Canc elled via OM: Order cancelled - Patient discharged Performed By: #### L 500.2500, L100.0100 ####[facility] [address] [place], [address] WBC Normal 4.4-11.0 [facility] Comment on above: Result Comment: Canc elled via OM: Order cancelled - Patient discharged Performed By: #### L 500.2500, L100.0100 ####[facility] [address] [place], [address] Basic Metabolic Profile (BMP )on 11-24-2024 BUN/CRE 12.2 RATIO Normal 10-20 [facility] Comment on above: Performed By: #### L 100.0100, L500.2500 ####[facility] [address] [place], [address] Calcium [Mass/Vol] 8.8 mg/dL Normal 7.6-11.0 [facility] Comment on above: Performed By: #### L 100.0100, L500.2500 ####[facility] [address] [place], [address] Chloride [Moles/Vol] 101 mmol/L Normal 98-108 [facility] Comment on above: Performed By: #### L 100.0100, L500.2500 ####[facility] [address] [place], [address] CO2 [Moles/Vol] 25.7 mmol/L Normal 21.0-32.0 [facility] Comment on above: Performed By: #### L 100.0100, L500.2500 ####[facility] [address] [place], [address] Creatinine [Mass/Vol] 1.62 mg/dL High 0.70-1.20 [facility] Comment on above: Performed By: #### L 100.0100, L500.2500 ####[facility] [address] [place], [address] GAP 14 Normal 5-15 [facility] Comment on above: Performed By: #### L 100.0100, L500.2500 ####[facility] [address] [place], [address] GFR/1.73 sq M.predicted among non-blacks MDRD (S/P/Bld) [Vol rate/Area] 36 mL/min/{1.73_m2} Low >60 [facility] Comment on above: Result Comment: mL/m in/1.73m2 CKD-EPI Creatinine Equation (2020) Performed By: #### L 100.0100, L500.2500 ####[facility] [address] [place], [address] Glucose [Mass/Vol] 84 mg/dL Normal 70-99 [facility] Comment on above: Performed By: #### L 100.0100, L500.2500 ####[facility] [address] [place], [address] Potassium [Moles/Vol] 3.5 mmol/L Normal 3.3-5.1 [facility] Comment on above: Performed By: #### L 100.0100, L500.2500 ####[facility] [address] [place], [address] Sodium [Moles/Vol] 141 mmol/L Normal 133-145 [facility] Comment on above: Performed By: #### L 100.0100, L500.2500 ####[facility] [address] [place], [address] Urea nitrogen [Mass/Vol] 20 mg/dL High 4-19 [facility] Comment on above: Performed By: #### L 100.0100, L500.2500 ####[facility] [address] [place], [address] CBC W/Diff, Automatedon 11-03-2024 Absolute Lymph 1.03 X10 3/uL Normal 0.83-4.51 [facility] Comment on above: Performed By: #### L 100.0100, L500.2500 ####[facility] [address] [place], [address] Absolute Neut 3.2 X10 3/uL Normal 2.0-7.7 [facility] Comment on above: Performed By: #### L 100.0100, L500.2500 ####[facility] [address] [place], [address] Basophils/100 WBC (Bld) 0.4 % Normal 0-1 [facility] Comment on above: Performed By: #### L 100.0100, L500.2500 ####[facility] [address] [place], [address] Eosinophils/100 WBC (Bld) 1.7 % Normal 0-5 [facility] Comment on above: Performed By: #### L 100.0100, L500.2500 ####[facility] [address] [place], [address] Erythrocyte distribution width (RBC) [Ratio] 16.0 % High 11.6-14.6 [facility] Comment on above: Performed By: #### L 100.0100, L500.2500 ####[facility] [address] [place], [address] Hematocrit (Bld) [Volume fraction] 31.7 % Low 37-47 [facility] Comment on above: Performed By: #### L 100.0100, L500.2500 ####[facility] [address] [place], [address] Hemoglobin (Bld) [Mass/Vol] 9.8 g/dL Low 12.0-15.0 [facility] Comment on above: Performed By: #### L 100.0100, L500.2500 ####[facility] [address] [place], [address] IG% 0.400 Normal 0.0-0.9 [facility] Comment on above: Result Comment: IG% - Immature Granulocytes (promyelocytes, myelocytes andmetamyelocytes) > 1% indicates that a LEFT SHIFT is Present. Performed By: #### L 100.0100, L500.2500 ####[facility] [address] [place], [address] Lymphocytes/100 WBC (Bld) 21.7 % Normal 19-41 [facility] Comment on above: Performed By: #### L 100.0100, L500.2500 ####[facility] [address] [place], [address] MCH (RBC) [Entitic mass] 28.7 pg Normal 27.0-32.0 [facility] Comment on above: Performed By: #### L 100.0100, L500.2500 ####[facility] [address] [place], [address] MCHC (RBC) [Mass/Vol] 30.9 g/dL Low 32-36 [facility] Comment on above: Performed By: #### L 100.0100, L500.2500 ####[facility] [address] [place], [address] MCV (RBC) [Entitic vol] 92.7 fL Normal 81-99 [facility] Comment on above: Performed By: #### L 100.0100, L500.2500 ####[facility] [address] [place], [address] Monocytes/100 WBC (Bld) 8.4 % Normal 0-10 [facility] Comment on above: Performed By: #### L 100.0100, L500.2500 ####[facility] [address] [place], [address] Neutrophils/100 WBC (Bld) 67.4 % Normal 47-70 [facility] Comment on above: Performed By: #### L 100.0100, L500.2500 ####[facility] [address] [place], [address] Nucleated RBC (Bld) [#/Vol] 0 10*3/uL Normal 0-5 [facility] Comment on above: Performed By: #### L 100.0100, L500.2500 ####[facility] [address] [place], [address] Platelet mean volume (Bld) [Entitic vol] 10.2 fL Normal 6.2-12.0 [facility] Comment on above: Performed By: #### L 100.0100, L500.2500 ####[facility] [address] [place], [address] Platelets (Bld) [#/Vol] 194 10*3/uL Normal 150-450 [facility] Comment on above: Performed By: #### L 100.0100, L500.2500 ####[facility] [address] [place], [address] RBC (Bld) [#/Vol] 3.42 10*6/uL Low 4.2-5.4 [facility] Comment on above: Performed By: #### L 100.0100, L500.2500 ####[facility] [address] [place], [address] RDW SD 54.5 fl High 35.1-43.9 [facility] Comment on above: Performed By: #### L 100.0100, L500.2500 ####[facility] [address] [place], [address] WBC (Bld) [#/Vol] 4.8 10*3/uL Normal 4.4-11.0 [facility] Comment on above: Performed By: #### L 100.0100, L500.2500 ####[facility] [address] [place], [address] Bedside Glucoseon 11-20-2024 FINGERSTICK GLU 96 mg/dL Normal 74-106 [facility] Comment on above: Result Comment: HAM PINEDA OF PATIENT CARE PER NURSING PROTOCOL Performed By: #### L 501.080 ####[facility] [address] [place], [address] Colonoscopy Reporton 025 Colonoscopy Report Normal [facility] EGD Reporton 11-20-2024 EGD Report Normal [facility] Immunohistochemical Stainson 11-20-2024 Immunohistochemical Stains Normal [facility] Comment on above: Performed By: #### SHAWNEE HOFFMANN ####[facility] [address] [place], [address] MR/POSTOP.ANEon 11-20-2024 MR/POSTOP.ANE Normal [facility] MR/[id number] 11-20-2024 MR/POSTOPAN2 Normal [facility] Surgery Specimen Level Kacy 11-20-2024 Surgery Specimen Level IV Normal [facility] Comment on above: Performed By: #### SHAWNEE HOFFMANN ####[facility] [address] [place], [address] HH, Hemoglobin AND Hematocri ton 11-19-2024 Hematocrit (Bld) [Volume fraction] 26.4 % Low 37-47 [facility] Comment on above: Performed By: #### L 100.0600 ####[facility] [address] [place], [address] Hemoglobin (Bld) [Mass/Vol] 8.0 g/dL Low 12.0-15.0 [facility] Comment on above: Performed By: #### L 100.0600 ####[facility] [address] [place], [address] MR/CON.PCM.GIon 11-19-2024 MR/CON.PCM.GI Normal [facility] Basic Metabolic Profile (BMP )on 11-18-2024 BUN/CRE 14.7 RATIO Normal 10-20 [facility] Comment on above: Performed By: #### L 500.2500, L100.0100 ####[facility] [address] [place], [address] Calcium [Mass/Vol] 9.1 mg/dL Normal 7.6-11.0 [facility] Comment on above: Performed By: #### L 500.2500, L100.0100 ####[facility] [address] [place], [address] Chloride [Moles/Vol] 108 mmol/L Normal 98-108 [facility] Comment on above: Performed By: #### L 500.2500, L100.0100 ####[facility] [address] [place], [address] CO2 [Moles/Vol] 26.7 mmol/L Normal 21.0-32.0 [facility] Comment on above: Performed By: #### L 500.2500, L100.0100 ####[facility] [address] [place], [address] Creatinine [Mass/Vol] 1.60 mg/dL High 0.70-1.20 [facility] Comment on above: Performed By: #### L 500.2500, L100.0100 ####[facility] [address] [place], [address] ECRCL 48.32 ml/min Low 50-250 [facility] Comment on above: Performed By: #### L 500.2500, L100.0100 ####[facility] [address] [place], [address] GAP 10 Normal 5-15 [facility] Comment on above: Performed By: #### L 500.2500, L100.0100 ####[facility] [address] [place], [address] GFR/1.73 sq M.predicted among non-blacks MDRD (S/P/Bld) [Vol rate/Area] 36 mL/min/{1.73_m2} Low >60 [facility] Comment on above: Result Comment: mL/m in/1.73m2 CKD-EPI Creatinine Equation (2020) Performed By: #### L 500.2500, L100.0100 ####[facility] [address] [place], [address] Glucose [Mass/Vol] 108 mg/dL High 70-99 [facility] Comment on above: Performed By: #### L 500.2500, L100.0100 ####[facility] [address] [place], [address] Potassium [Moles/Vol] 3.4 mmol/L Normal 3.3-5.1 [facility] Comment on above: Performed By: #### L 500.2500, L100.0100 ####[facility] [address] [place], [address] Sodium [Moles/Vol] 144 mmol/L Normal 133-145 [facility] Comment on above: Performed By: #### L 500.2500, L100.0100 ####[facility] [address] [place], [address] Urea nitrogen [Mass/Vol] 24 mg/dL High 4-19 [facility] Comment on above: Performed By: #### L 500.2500, L100.0100 ####[facility] [address] [place], [address] CBC W/Diff, Automatedon 11-02 SMEAR COMMENT SCANNED Normal [facility] Comment on above: Result Comment: LYMP HOPENIA NOTED Performed By: #### L 500.2500, L100.0100 ####[facility] [address] [place], [address] Basic Metabolic Profile (BMP )on 11-16-2024 BUN/CRE 14.0 RATIO Normal 10-20 [facility] Comment on above: Performed By: #### L 500.2500 ####[facility] [address] [place], [address] Calcium [Mass/Vol] 9.3 mg/dL Normal 7.6-11.0 [facility] Comment on above: Performed By: #### L 500.2500 ####[facility] [address] [place], [address] Chloride [Moles/Vol] 107 mmol/L Normal 98-108 [facility] Comment on above: Performed By: #### L 500.2500 ####[facility] [address] [place], [address] CO2 [Moles/Vol] 26.9 mmol/L Normal 21.0-32.0 [facility] Comment on above: Performed By: #### L 500.2500 ####[facility] [address] [place], [address] Creatinine [Mass/Vol] 1.71 mg/dL High 0.70-1.20 [facility] Comment on above: Performed By: #### L 500.2500 ####[facility] [address] [place], [address] ECRCL 45.21 ml/min Low 50-250 [facility] Comment on above: Performed By: #### L 500.2500 ####[facility] [address] [place], [address] GAP 9 Normal 5-15 [facility] Comment on above: Performed By: #### L 500.2500 ####[facility] [address] [place], [address] GFR/1.73 sq M.predicted among non-blacks MDRD (S/P/Bld) [Vol rate/Area] 33 mL/min/{1.73_m2} Low >60 [facility] Comment on above: Result Comment: mL/m in/1.73m2 CKD-EPI Creatinine Equation (2020) Performed By: #### L 500.2500 ####[facility] [address] [place], [address] Glucose [Mass/Vol] 96 mg/dL Normal 70-99 [facility] Comment on above: Performed By: #### L 500.2500 ####[facility] [address] [place], [address] Potassium [Moles/Vol] 3.6 mmol/L Normal 3.3-5.1 [facility] Comment on above: Performed By: #### L 500.2500 ####[facility] [address] [place], [address] Sodium [Moles/Vol] 142 mmol/L Normal 133-145 [facility] Comment on above: Performed By: #### L 500.2500 ####[facility] [address] [place], [address] Urea nitrogen [Mass/Vol] 24 mg/dL High 4-19 [facility] Comment on above: Performed By: #### L 500.2500 ####[facility] [address] [place], [address] Basic Metabolic Profile (BMP )on 11-15-2024 BUN/CRE 12.3 RATIO Normal 10-20 [facility] Comment on above: Performed By: #### L 500.2500 ####[facility] [address] [place], [address] Calcium [Mass/Vol] 9.4 mg/dL Normal 7.6-11.0 [facility] Comment on above: Performed By: #### L 500.2500 ####[facility] [address] [place], [address] Chloride [Moles/Vol] 106 mmol/L Normal 98-108 [facility] Comment on above: Performed By: #### L 500.2500 ####[facility] [address] [place], [address] CO2 [Moles/Vol] 26.2 mmol/L Normal 21.0-32.0 [facility] Comment on above: Performed By: #### L 500.2500 ####[facility] [address] [place], [address] Creatinine [Mass/Vol] 1.86 mg/dL High 0.70-1.20 [facility] Comment on above: Performed By: #### L 500.2500 ####[facility] [address] [place], [address] ECRCL 41.56 ml/min Low 50-250 [facility] Comment on above: Performed By: #### L 500.2500 ####[facility] [address] [place], [address] GAP 10 Normal 5-15 [facility] Comment on above: Performed By: #### L 500.2500 ####[facility] [address] [place], [address] GFR/1.73 sq M.predicted among non-blacks MDRD (S/P/Bld) [Vol rate/Area] 30 mL/min/{1.73_m2} Low >60 [facility] Comment on above: Result Comment: mL/m in/1.73m2 CKD-EPI Creatinine Equation (2020) Performed By: #### L 500.2500 ####[facility] [address] [place], [address] Glucose [Mass/Vol] 103 mg/dL High 70-99 [facility] Comment on above: Performed By: #### L 500.2500 ####[facility] [address] [place], [address] Potassium [Moles/Vol] 3.5 mmol/L Normal 3.3-5.1 [facility] Comment on above: Performed By: #### L 500.2500 ####[facility] [address] [place], [address] Sodium [Moles/Vol] 142 mmol/L Normal 133-145 [facility] Comment on above: Performed By: #### L 500.2500 ####[facility] [address] [place], [address] Urea nitrogen [Mass/Vol] 23 mg/dL High 4-19 [facility] Comment on above: Performed By: #### L 500.2500 ####[facility] [address] [place], [address] HH, Hemoglobin AND Hematocri ton 11-15-2024 Hematocrit (Bld) [Volume fraction] 30.9 % Low 37-47 [facility] Comment on above: Performed By: #### L 100.0600 ####[facility] [address] [place], [address] Hemoglobin (Bld) [Mass/Vol] 9.4 g/dL Low 12.0-15.0 [facility] Comment on above: Performed By: #### L 100.0600 ####[facility] [address] [place], [address] Basic Metabolic Profile (BMP )on 11-14-2024 BUN/CRE 11.8 RATIO Normal 10-20 [facility] Comment on above: Performed By: #### L 500.2500, L506.1001 ####[facility] [address] [place], [address] Calcium [Mass/Vol] 9.3 mg/dL Normal 7.6-11.0 [facility] Comment on above: Performed By: #### L 500.2500, L506.1001 ####[facility] [address] [place], [address] Chloride [Moles/Vol] 104 mmol/L Normal 98-108 [facility] Comment on above: Performed By: #### L 500.2500, L506.1001 ####[facility] [address] [place], [address] CO2 [Moles/Vol] 27.0 mmol/L Normal 21.0-32.0 [facility] Comment on above: Performed By: #### L 500.2500, L506.1001 ####[facility] [address] [place], [address] Creatinine [Mass/Vol] 1.84 mg/dL High 0.70-1.20 [facility] Comment on above: Performed By: #### L 500.2500, L506.1001 ####[facility] [address] [place], [address] ECRCL 42.01 ml/min Low 50-250 [facility] Comment on above: Performed By: #### L 500.2500, L506.1001 ####[facility] [address] [place], [address] GAP 9 Normal 5-15 [facility] Comment on above: Performed By: #### L 500.2500, L506.1001 ####[facility] [address] [place], [address] GFR/1.73 sq M.predicted among non-blacks MDRD (S/P/Bld) [Vol rate/Area] 31 mL/min/{1.73_m2} Low >60 [facility] Comment on above: Result Comment: mL/m in/1.73m2 CKD-EPI Creatinine Equation (2020) Performed By: #### L 500.2500, L506.1001 ####[facility] [address] [place], [address] Glucose [Mass/Vol] 93 mg/dL Normal 70-99 [facility] Comment on above: Performed By: #### L 500.2500, L506.1001 ####[facility] [address] [place], [address] Potassium [Moles/Vol] 3.4 mmol/L Normal 3.3-5.1 [facility] Comment on above: Performed By: #### L 500.2500, L506.1001 ####[facility] [address] [place], [address] Sodium [Moles/Vol] 140 mmol/L Normal 133-145 [facility] Comment on above: Performed By: #### L 500.2500, L506.1001 ####[facility] [address] [place], [address] Urea nitrogen [Mass/Vol] 22 mg/dL High 4-19 [facility] Comment on above: Performed By: #### L 500.2500, L506.1001 ####[facility] [address] [place], [address] HH, Hemoglobin AND Hematocri ton 06-13-2025 Hematocrit (Bld) [Volume fraction] 24.0 % Low 37-47 [facility] Comment on above: Performed By: #### L 100.0600 ####[facility] [address] [place], [address] Hemoglobin (Bld) [Mass/Vol] 7.2 g/dL Low 12.0-15.0 [facility] Comment on above: Performed By: #### L 100.0600 ####[facility] [address] [place], [address] Urine Cultureon 11-14-2024 URC Culture exhibits no growth. Normal [facility] Comment on above: Performed By: #### L 400.0001, M100.2200 ####[facility] [address] [place], [address] Vitamin D,25 Hydroxyon 11-14 Vitamin D 25-OH 27.6 ng/mL Low 30-100 [facility] Comment on above: Result Comment: Kaycee min D StatusDeficiency: <20 ng/mL (50nmol/L)Insufficiency: 20-30 ng/mL (50-75 nmol/L)Sufficiency: 30-100 ng/mL (75-250 nmol/L)Toxicity: >100 ng/mL (>250 nmol/L) Performed By: #### L 500.2500, L506.1001 ####[facility] [address] [place], [address] BRCon 11-13-2024 RC Normal [facility] Comment on above: Result Comment: [id number] AN RC TRANSFUSED 11/14/24 0919 Performed By: #### B RC, BTS ####[facility] [address] [place], [address] Basic Metabolic Profile (BMP )on 11-13-2024 BUN/CRE 11.2 RATIO Normal 10-20 [facility] Comment on above: Performed By: #### L 500.2500 ####[facility] [address] [place], [address] Calcium [Mass/Vol] 9.5 mg/dL Normal 7.6-11.0 [facility] Comment on above: Performed By: #### L 500.2500 ####[facility] [address] [place], [address] Chloride [Moles/Vol] 102 mmol/L Normal 98-108 [facility] Comment on above: Performed By: #### L 500.2500 ####[facility] [address] [place], [address] CO2 [Moles/Vol] 27.1 mmol/L Normal 21.0-32.0 [facility] Comment on above: Performed By: #### L 500.2500 ####[facility] [address] [place], [address] Creatinine [Mass/Vol] 1.95 mg/dL High 0.70-1.20 [facility] Comment on above: Performed By: #### L 500.2500 ####[facility] [address] [place], [address] ECRCL 39.64 ml/min Low 50-250 [facility] Comment on above: Performed By: #### L 500.2500 ####[facility] [address] [place], [address] GAP 11 Normal 5-15 [facility] Comment on above: Performed By: #### L 500.2500 ####[facility] [address] [place], [address] GFR/1.73 sq M.predicted among non-blacks MDRD (S/P/Bld) [Vol rate/Area] 29 mL/min/{1.73_m2} Low >60 [facility] Comment on above: Result Comment: mL/m in/1.73m2 CKD-EPI Creatinine Equation (2020) Performed By: #### L 500.2500 ####[facility] [address] [place], [address] Glucose [Mass/Vol] 105 mg/dL High 70-99 [facility] Comment on above: Performed By: #### L 500.2500 ####[facility] [address] [place], [address] Potassium [Moles/Vol] 3.2 mmol/L Low 3.3-5.1 [facility] Comment on above: Performed By: #### L 500.2500 ####[facility] [address] [place], [address] Sodium [Moles/Vol] 140 mmol/L Normal 133-145 [facility] Comment on above: Performed By: #### L 500.2500 ####[facility] [address] [place], [address] Urea nitrogen [Mass/Vol] 22 mg/dL High 4-19 [facility] Comment on above: Performed By: #### L 500.2500 ####[facility] [address] [place], [address] HH, Hemoglobin AND Hematocri ton 11-13-2024 Hematocrit (Bld) [Volume fraction] 25.7 % Low 37-47 [facility] Comment on above: Performed By: #### L 100.0600 ####[facility] [address] [place], [address] Hemoglobin (Bld) [Mass/Vol] 7.7 g/dL Low 12.0-15.0 [facility] Comment on above: Performed By: #### L 100.0600 ####[facility] [address] [place], [address] Stool Occult Blood iFOBon STOB Positive Normal [facility] Comment on above: Performed By: #### M 100.7900 ####[facility] [address] [place], [address] Type AND Screenon 11-13-2024 Ab SCREEN GEL Negative Normal [facility] Comment on above: Order Comment: CMV N EG? NNumber of units to transfuse: 1Reason for Ordering Blood: AcuteAre the blood/blood products to be transfused? YIs the patient having/had surgery? NWhen Nguyen Performed By: #### B RC, BTS ####[facility] [address] [place], [address] Urinalysis, Completeon 11-13 BACTERIA 0 SEEN Normal None Seen [facility] Comment on above: Order Comment: BLADD ER TAP Performed By: #### L 400.0001, M100.2200 ####[facility] [address] [place], [address] EPI,SQUAMOUS 0 SEEN Normal 5-10 [facility] Comment on above: Order Comment: BLADD ER TAP Performed By: #### L 400.0001, M100.2200 ####[facility] [address] [place], [address] Mucus Ql (Urine sed) 0 SEEN Normal [facility] Comment on above: Order Comment: BLADD ER TAP Performed By: #### L 400.0001, M100.2200 ####[facility] [address] [place], [address] RBC 0 SEEN Normal 0-5 [facility] Comment on above: Order Comment: BLADD ER TAP Performed By: #### L 400.0001, M100.2200 ####[facility] [address] [place], [address] WBC 0 SEEN Normal 0-5 [facility] Comment on above: Order Comment: BLADD ER TAP Performed By: #### L 400.0001, M100.2200 ####[facility] [address] [place], [address] Culture, Blood (WB)on 2024 CUB Blood cultures x2, f rom two different sites No growth in 5 days. Normal [facility] Comment on above: Performed By: #### L 300.4310, M200.1000, L100.0100, L501.4021, L503.6005, L300.3900 ####[facility] [address] [place], [address] HH, Hemoglobin AND Hematocri ton 11-12-2024 Hematocrit (Bld) [Volume fraction] 26.6 % Low 37-47 [facility] Comment on above: Performed By: #### L 100.0600 ####[facility] [address] [place], [address] Hemoglobin (Bld) [Mass/Vol] 8.0 g/dL Low 12.0-15.0 [facility] Comment on above: Performed By: #### L 100.0600 ####[facility] [address] [place], [address] Abdomen Single Viewon 2024 Abdomen Single View Normal [facility] Basic Metabolic Profile (BMP )on 11-11-2024 BUN/CRE 11.6 RATIO Normal 10-20 [facility] Comment on above: Performed By: #### L 500.2500, L100.0100 ####[facility] [address] [place], [address] Calcium [Mass/Vol] 9.7 mg/dL Normal 7.6-11.0 [facility] Comment on above: Performed By: #### L 500.2500, L100.0100 ####[facility] [address] [place], [address] Chloride [Moles/Vol] 105 mmol/L Normal 98-108 [facility] Comment on above: Performed By: #### L 500.2500, L100.0100 ####[facility] [address] [place], [address] CO2 [Moles/Vol] 25.3 mmol/L Normal 21.0-32.0 [facility] Comment on above: Performed By: #### L 500.2500, L100.0100 ####[facility] [address] [place], [address] Creatinine [Mass/Vol] 2.04 mg/dL High 0.70-1.20 [facility] Comment on above: Performed By: #### L 500.2500, L100.0100 ####[facility] [address] [place], [address] ECRCL 37.89 ml/min Low 50-250 [facility] Comment on above: Performed By: #### L 500.2500, L100.0100 ####[facility] [address] [place], [address] GAP 10 Normal 5-15 [facility] Comment on above: Performed By: #### L 500.2500, L100.0100 ####[facility] [address] [place], [address] GFR/1.73 sq M.predicted among non-blacks MDRD (S/P/Bld) [Vol rate/Area] 27 mL/min/{1.73_m2} Low >60 [facility] Comment on above: Result Comment: mL/m in/1.73m2 CKD-EPI Creatinine Equation (2020) Performed By: #### L 500.2500, L100.0100 ####[facility] [address] [place], [address] Glucose [Mass/Vol] 99 mg/dL Normal 70-99 [facility] Comment on above: Performed By: #### L 500.2500, L100.0100 ####[facility] [address] [place], [address] Potassium [Moles/Vol] 3.3 mmol/L Normal 3.3-5.1 [facility] Comment on above: Performed By: #### L 500.2500, L100.0100 ####[facility] [address] [place], [address] Sodium [Moles/Vol] 141 mmol/L Normal 133-145 [facility] Comment on above: Performed By: #### L 500.2500, L100.0100 ####[facility] [address] [place], [address] Urea nitrogen [Mass/Vol] 24 mg/dL High 4-19 [facility] Comment on above: Performed By: #### L 500.2500, L100.0100 ####[facility] [address] [place], [address] CBC W/Diff, Automatedon 06-1 0-2025 Absolute Lymph 0.74 X10 3/uL Low 0.83-4.51 [facility] Comment on above: Performed By: #### L 500.2500, L100.0100 ####[facility] [address] [place], [address] Absolute Neut 3.7 X10 3/uL Normal 2.0-7.7 [facility] Comment on above: Performed By: #### L 500.2500, L100.0100 ####[facility] [address] [place], [address] Basophils/100 WBC (Bld) 0.4 % Normal 0-1 [facility] Comment on above: Performed By: #### L 500.2500, L100.0100 ####[facility] [address] [place], [address] Eosinophils/100 WBC (Bld) 0.6 % Normal 0-5 [facility] Comment on above: Performed By: #### L 500.2500, L100.0100 ####[facility] [address] [place], [address] Erythrocyte distribution width (RBC) [Ratio] 17.2 % High 11.6-14.6 [facility] Comment on above: Performed By: #### L 500.2500, L100.0100 ####[facility] [address] [place], [address] Hematocrit (Bld) [Volume fraction] 26.8 % Low 37-47 [facility] Comment on above: Performed By: #### L 500.2500, L100.0100 ####[facility] [address] [place], [address] Hemoglobin (Bld) [Mass/Vol] 8.1 g/dL Low 12.0-15.0 [facility] Comment on above: Performed By: #### L 500.2500, L100.0100 ####[facility] [address] [place], [address] IG% 1.000 High 0.0-0.9 [facility] Comment on above: Result Comment: IG% - Immature Granulocytes (promyelocytes, myelocytes andmetamyelocytes) > 1% indicates that a LEFT SHIFT is Present. Performed By: #### L 500.2500, L100.0100 ####[facility] [address] [place], [address] Lymphocytes/100 WBC (Bld) 15.2 % Low 19-41 [facility] Comment on above: Performed By: #### L 500.2500, L100.0100 ####[facility] [address] [place], [address] MCH (RBC) [Entitic mass] 27.5 pg Normal 27.0-32.0 [facility] Comment on above: Performed By: #### L 500.2500, L100.0100 ####[facility] [address] [place], [address] MCHC (RBC) [Mass/Vol] 30.2 g/dL Low 32-36 [facility] Comment on above: Performed By: #### L 500.2500, L100.0100 ####[facility] [address] [place], [address] MCV (RBC) [Entitic vol] 90.8 fL Normal 81-99 [facility] Comment on above: Performed By: #### L 500.2500, L100.0100 ####[facility] [address] [place], [address] Monocytes/100 WBC (Bld) 7.6 % Normal 0-10 [facility] Comment on above: Performed By: #### L 500.2500, L100.0100 ####[facility] [address] [place], [address] Neutrophils/100 WBC (Bld) 75.2 % High 47-70 [facility] Comment on above: Performed By: #### L 500.2500, L100.0100 ####[facility] [address] [place], [address] Nucleated RBC (Bld) [#/Vol] 0 10*3/uL Normal 0-5 [facility] Comment on above: Performed By: #### L 500.2500, L100.0100 ####[facility] [address] [place], [address] Platelet mean volume (Bld) [Entitic vol] 9.6 fL Normal 6.2-12.0 [facility] Comment on above: Performed By: #### L 500.2500, L100.0100 ####[facility] [address] [place], [address] Platelets (Bld) [#/Vol] 163 10*3/uL Normal 150-450 [facility] Comment on above: Performed By: #### L 500.2500, L100.0100 ####[facility] [address] [place], [address] RBC (Bld) [#/Vol] 2.95 10*6/uL Low 4.2-5.4 [facility] Comment on above: Performed By: #### L 500.2500, L100.0100 ####[facility] [address] [place], [address] RDW SD 56.7 fl High 35.1-43.9 [facility] Comment on above: Performed By: #### L 500.2500, L100.0100 ####[facility] [address] [place], [address] WBC (Bld) [#/Vol] 4.9 10*3/uL Normal 4.4-11.0 [facility] Comment on above: Performed By: #### L 500.2500, L100.0100 ####[facility] [address] [place], [address] Consultation - Surgicalon Consultation - Surgical Normal [facility] Anion gap in Serum or Plasma Ordered By: Blayne Santana on 11-10-2024 Anion gap [Moles/Vol] 11 mmol/L 5-15 [facility] BUN/creatinine ratioOrdered By: Blayne Santana on 11-10-2024 Urea nitrogen/Creatinine [Mass ratio] 11.9 mg/mg 10- [facility] Basic Metabolic Profile (BMP )on 11-10-2024 BUN/CRE 11.9 RATIO Normal - [facility] Comment on above: Performed By: #### L 500.2500 ####[facility] [address] [place], [address] Calcium [Mass/Vol] 9.5 mg/dL Normal 7.6-11.0 [facility] Comment on above: Performed By: #### L 500.2500 ####[facility] [address] [place], [address] Chloride [Moles/Vol] 109 mmol/L High 98-108 [facility] Comment on above: Performed By: #### L 500.2500 ####[facility] [address] [place], [address] CO2 [Moles/Vol] 23.5 mmol/L Normal 21.0-32.0 [facility] Comment on above: Performed By: #### L 500.2500 ####[facility] [address] [place], [address] Creatinine [Mass/Vol] 2.16 mg/dL High 0.70-1.20 [facility] Comment on above: Performed By: #### L 500.2500 ####[facility] [address] [place], [address] ECRCL 38.93 ml/min Low 50-250 [facility] Comment on above: Performed By: #### L 500.2500 ####[facility] [address] [place], [address] GAP 11 Normal 5-15 [facility] Comment on above: Performed By: #### L 500.2500 ####[facility] [address] [place], [address] GFR/1.73 sq M.predicted among non-blacks MDRD (S/P/Bld) [Vol rate/Area] 25 mL/min/{1.73_m2} Low >60 [facility] Comment on above: Result Comment: mL/m in/1.73m2 CKD-EPI Creatinine Equation (2020) Performed By: #### L 500.2500 ####[facility] [address] [place], [address] Glucose [Mass/Vol] 98 mg/dL Normal 70-99 [facility] Comment on above: Performed By: #### L 500.2500 ####[facility] [address] [place], [address] Potassium [Moles/Vol] 3.4 mmol/L Normal 3.3-5.1 [facility] Comment on above: Performed By: #### L 500.2500 ####[facility] [address] [place], [address] Sodium [Moles/Vol] 144 mmol/L Normal 133-145 [facility] Comment on above: Performed By: #### L 500.2500 ####[facility] [address] [place], [address] Urea nitrogen [Mass/Vol] 26 mg/dL High 4-19 [facility] Comment on above: Performed By: #### L 500.2500 ####[facility] [address] [place], [address] Bedside Glucoseon 11-10-2024 FINGERSTICK GLU 94 mg/dL Normal 74-106 [facility] Comment on above: Result Comment: HAM GEMENT OF PATIENT CARE PER NURSING PROTOCOL Performed By: #### L 501.080 ####[facility] [address] [place], [address] FINGERSTICK GLU 105 mg/dL Normal 74-106 [facility] Comment on above: Result Comment: HAM GEMENT OF PATIENT CARE PER NURSING PROTOCOL Performed By: #### L 501.080 ####[facility] [address] [place], [address] Carbon dioxide, total [Moles /volume] in Central venous bloodOrdered By: Blayne Santana on 11-10-2024 CO2 [Moles/Vol] 23.5 mmol/L 21.0-32.0 [facility] Chloride assayOrdered By: Blue Santana on 11-10-2024 Chloride [Moles/Vol] 109 mmol/L High 98-108 [facility] Electrocardiogram reportOrde red By: Sharonda López on 11-10-2024 EKG study [facility] Other Phone: Ext Non Vasc Limited/Soft Ti sson 11-10-2024 Ext Non Vasc Limited/Soft Tiss Normal [facility] Glomerular filtration rate ( GFR) estimation/1.73 sq m using serum, plasma, or whole bOrdered By: Blayne Santana on 11-10-2024 GFR/1.73 sq M.predicted among non-blacks MDRD (S/P/Bld) [Vol rate/Area] 25 mL/min/{1.73_m2} Low >60 [facility] Gl[facility] at [facility] deOrdered By: Blayne Santana on 11-10-2024 Glucose [Mass/Vol] 94 mg/dL 74-106 [facility] Potassium measurement (mass/ volume)Ordered By: Blayne Santana on 11-10-2024 Potassium (Unsp spec) [Mass/Vol] 3.4 mmol/L 3.3-5.1 [facility] Serum creatinine measurement (mass/volume)Ordered By: Blayne Santana on 11-10-2024 Creatinine [Mass/Vol] 2.16 mg/dL High 0.70-1.20 [facility] Serum glucose measurement (m ass/volume)Ordered By: Blayne Santana on 11-10-2024 Glucose [Mass/Vol] 98 mg/dL 70-99 [facility] Serum or plasma calcium marisela urement (mass/volume)Ordered By: Blayne Santana on 11-10-2024 Calcium [Mass/Vol] 9.5 mg/dL 7.6-11.0 [facility] Serum or plasma urea nitroge n measurement (mass/volume)Ordered By: Blayne Santana on 11-10-2024 Urea nitrogen [Mass/Vol] 26 mg/dL High 4-19 [facility] Sodium levelOrdered By: Blayne Santana on 11-10-2024 Sodium [Moles/Vol] 144 mmol/L 133-145 [facility] Absolute lymphocyte countOrd ered By: Kaitlyn Winkler on 11-09-2024 Lymphocytes Auto (Unsp spec) [#/Vol] 0.47 10*3/uL Low 0.83-4.51 [facility] Automated lymphocyte count a s percentage of total leukocytesOrdered By: Kaitlyn Winkler on 11-09-2024 Lymphocytes/100 WBC Auto (Unsp spec) 10.4 % Low 19-41 [facility] Basophil percentageOrdered B y: Kaitlyn Winkler on 11-09-2024 Basophils/100 WBC (Bld) 0.2 % 0-1 [facility] Bedside Glucoseon 11-09-2024 FINGERSTICK GLU 96 mg/dL Normal 74-106 [facility] Comment on above: Result Comment: HAM GEMENT OF PATIENT CARE PER NURSING PROTOCOL Performed By: #### L 501.080 ####[facility] [address] [place], [address] FINGERSTICK GLU 130 mg/dL High -106 [facility] Comment on above: Result Comment: HAM GEMENT OF PATIENT CARE PER NURSING PROTOCOL Performed By: #### L 501.080 ####[facility] [address] [place], [address] FINGERSTICK GLU 95 mg/dL Normal -[address] [place] [address] Comment on above: Result Comment: HAM GEMENT OF PATIENT CARE PER NURSING PROTOCOL Performed By: #### L 501.080 ####[facility] [address] [place], [address] FINGERSTICK GLU 92 mg/dL Normal -106 [facility] Comment on above: Result Comment: HAM GEMENT OF PATIENT CARE PER NURSING PROTOCOL Performed By: #### L 501.080 ####[facility] [address] [place], [address] Bilirubin, totalOrdered By: Kaitlyn Winkler on 11-09-2024 Bilirubin [Mass/Vol] 0.59 mg/dL 0.00-1.30 [facility] CBC W/Diff, Automatedon Absolute Lymph 0.47 X10 3/uL Low 0.83-4.51 [facility] Comment on above: Order Comment: UTOx2 PHLEBS, PATIENTS NURSE ANH INFORMED. Performed By: #### L 501.5200, L501.2300, L100.0100, L500.4050 ####[facility] [address] [place], [address] Absolute Neut 3.6 X10 3/uL Normal 2.0-7.7 [facility] Comment on above: Order Comment: UTOx2 PHLEBS, PATIENTS NURSE ANH INFORMED. Performed By: #### L 501.5200, L501.2300, L100.0100, L500.4050 ####[facility] [address] [place], [address] Basophils/100 WBC (Bld) 0.2 % Normal 0-1 [facility] Comment on above: Order Comment: UTOx2 PHLEBS, PATIENTS NURSE ANH INFORMED. Performed By: #### L 501.5200, L501.2300, L100.0100, L500.4050 ####[facility] [address] [place], [address] Eosinophils/100 WBC (Bld) 1.1 % Normal 0-5 [facility] Comment on above: Order Comment: UTOx2 PHLEBS, PATIENTS NURSE ANH INFORMED. Performed By: #### L 501.5200, L501.2300, L100.0100, L500.4050 ####[facility] [address] [place], [address] Erythrocyte distribution width (RBC) [Ratio] 17.3 % High 11.6-14.6 [facility] Comment on above: Order Comment: UTOx2 PHLEBS, PATIENTS NURSE ANH INFORMED. Performed By: #### L 501.5200, L501.2300, L100.0100, L500.4050 ####[facility] [address] [place], [address] Hematocrit (Bld) [Volume fraction] 27.2 % Low 37-47 [facility] Comment on above: Order Comment: UTOx2 PHLEBS, PATIENTS NURSE ANH INFORMED. Performed By: #### L 501.5200, L501.2300, L100.0100, L500.4050 ####[facility] [address] [place], [address] Hemoglobin (Bld) [Mass/Vol] 8.5 g/dL Low 12.0-15.0 [facility] Comment on above: Order Comment: UTOx2 PHLEBS, PATIENTS NURSE ANH INFORMED. Performed By: #### L 501.5200, L501.2300, L100.0100, L500.4050 ####[facility] [address] [place], [address] IG% 1.300 High 0.0-0.9 [facility] Comment on above: Order Comment: UTOx2 PHLEBS, PATIENTS NURSE ANH INFORMED. Result Comment: IG% - Immature Granulocytes (promyelocytes, myelocytes andmetamyelocytes) > 1% indicates that a LEFT SHIFT is Present. Performed By: #### L 501.5200, L501.2300, L100.0100, L500.4050 ####[facility] [address] [place], [address] Lymphocytes/100 WBC (Bld) 10.4 % Low 19-41 [facility] Comment on above: Order Comment: UTOx2 PHLEBS, PATIENTS NURSE ANH INFORMED. Performed By: #### L 501.5200, L501.2300, L100.0100, L500.4050 ####[facility] [address] [place], [address] MCH (RBC) [Entitic mass] 28.0 pg Normal 27.0-32.0 [facility] Comment on above: Order Comment: UTOx2 PHLEBS, PATIENTS NURSE ANH INFORMED. Performed By: #### L 501.5200, L501.2300, L100.0100, L500.4050 ####[facility] [address] [place], [address] MCHC (RBC) [Mass/Vol] 31.3 g/dL Low 32-36 [facility] Comment on above: Order Comment: UTOx2 PHLEBS, PATIENTS NURSE NAH INFORMED. Performed By: #### L 501.5200, L501.2300, L100.0100, L500.4050 ####[facility] [address] [place], [address] MCV (RBC) [Entitic vol] 89.5 fL Normal 81-99 [facility] Comment on above: Order Comment: UTOx2 PHLEBS, PATIENTS NURSE ANH INFORMED. Performed By: #### L 501.5200, L501.2300, L100.0100, L500.4050 ####[facility] [address] [place], [address] Monocytes/100 WBC (Bld) 6.2 % Normal 0-10 [facility] Comment on above: Order Comment: UTOx2 PHLEBS, PATIENTS NURSE ANH INFORMED. Performed By: #### L 501.5200, L501.2300, L100.0100, L500.4050 ####[facility] [address] [place], [address] Neutrophils/100 WBC (Bld) 80.8 % High 47-70 [facility] Comment on above: Order Comment: UTOx2 PHLEBS, PATIENTS NURSE ANH INFORMED. Performed By: #### L 501.5200, L501.2300, L100.0100, L500.4050 ####[facility] [address] [place], [address] Nucleated RBC (Bld) [#/Vol] 0 10*3/uL Normal 0-5 [facility] Comment on above: Order Comment: UTOx2 PHLEBS, PATIENTS NURSE ANH INFORMED. Performed By: #### L 501.5200, L501.2300, L100.0100, L500.4050 ####[facility] [address] [place], [address] Platelet mean volume (Bld) [Entitic vol] 9.4 fL Normal 6.2-12.0 [facility] Comment on above: Order Comment: UTOx2 PHLEBS, PATIENTS NURSE ANH INFORMED. Performed By: #### L 501.5200, L501.2300, L100.0100, L500.4050 ####[facility] [address] [place], [address] Platelets (Bld) [#/Vol] 135 10*3/uL Low 150-450 [facility] Comment on above: Order Comment: UTOx2 PHLEBS, PATIENTS NURSE ANH INFORMED. Performed By: #### L 501.5200, L501.2300, L100.0100, L500.4050 ####[facility] [address] [place], [address] RBC (Bld) [#/Vol] 3.04 10*6/uL Low 4.2-5.4 [facility] Comment on above: Order Comment: UTOx2 PHLEBS, PATIENTS NURSE ANH INFORMED. Performed By: #### L 501.5200, L501.2300, L100.0100, L500.4050 ####[facility] [address] [place], [address] RDW SD 56.2 fl High 35.1-43.9 [facility] Comment on above: Order Comment: UTOx2 PHLEBS, PATIENTS NURSE ANH INFORMED. Performed By: #### L 501.5200, L501.2300, L100.0100, L500.4050 ####[facility] [address] [place], [address] WBC (Bld) [#/Vol] 4.5 10*3/uL Normal 4.4-11.0 [facility] Comment on above: Order Comment: UTOx2 PHLEBS, PATIENTS NURSE ANH INFORMED. Performed By: #### L 501.5200, L501.2300, L100.0100, L500.4050 ####[facility] [address] [place], [address] Comprehensive Metabolic Prof nvon 11-09-2024 Albumin [Mass/Vol] 3.2 g/dL Low 3.4-4.8 [facility] Comment on above: Order Comment: UTOx2 PHLEBS, PATIENTS NURSE ANH INFORMED. Performed By: #### L 501.5200, L501.2300, L100.0100, L500.4050 ####[facility] [address] [place], [address] Albumin/Globulin [Mass ratio] 1.4 {ratio} Normal 0.9-2.4 [facility] Comment on above: Order Comment: UTOx2 PHLEBS, PATIENTS NURSE ANH INFORMED. Performed By: #### L 501.5200, L501.2300, L100.0100, L500.4050 ####[facility] [address] [place], [address] ALK PHOS 101 U/L Normal 35-104 [facility] Comment on above: Order Comment: UTOx2 PHLEBS, PATIENTS NURSE ANH INFORMED. Performed By: #### L 501.5200, L501.2300, L100.0100, L500.4050 ####[facility] [address] [place], [address] ALT [Catalytic activity/Vol] 17 U/L Normal <=34 [facility] Comment on above: Order Comment: UTOx2 PHLEBS, PATIENTS NURSE ANH INFORMED. Performed By: #### L 501.5200, L501.2300, L100.0100, L500.4050 ####[facility] [address] [place], [address] AST [Catalytic activity/Vol] 26 U/L Normal <=31 [facility] Comment on above: Order Comment: UTOx2 PHLEBS, PATIENTS NURSE ANH INFORMED. Result Comment: Hemo lysis present, Results??could be affected.?? Performed By: #### L 501.5200, L501.2300, L100.0100, L500.4050 ####[facility] [address] [place], [address] Bilirubin [Mass/Vol] 0.59 mg/dL Normal 0.00-1.30 [facility] Comment on above: Order Comment: UTOx2 PHLEBS, PATIENTS NURSE ANH INFORMED. Performed By: #### L 501.5200, L501.2300, L100.0100, L500.4050 ####[facility] [address] [place], [address] BUN/CRE 12.1 RATIO Normal 10-20 [facility] Comment on above: Order Comment: UTOx2 PHLEBS, PATIENTS NURSE ANH INFORMED. Performed By: #### L 501.5200, L501.2300, L100.0100, L500.4050 ####[facility] [address] [place], [address] Calcium [Mass/Vol] 9.0 mg/dL Normal 7.6-11.0 [facility] Comment on above: Order Comment: UTOx2 PHLEBS, PATIENTS NURSE ANH INFORMED. Performed By: #### L 501.5200, L501.2300, L100.0100, L500.4050 ####[facility] [address] [place], [address] Chloride [Moles/Vol] 108 mmol/L Normal 98-108 [facility] Comment on above: Order Comment: UTOx2 PHLEBS, PATIENTS NURSE ANH INFORMED. Performed By: #### L 501.5200, L501.2300, L100.0100, L500.4050 ####[facility] [address] [place], [address] CO2 [Moles/Vol] 22.4 mmol/L Normal 21.0-32.0 [facility] Comment on above: Order Comment: UTOx2 PHLEBS, PATIENTS NURSE ANH INFORMED. Performed By: #### L 501.5200, L501.2300, L100.0100, L500.4050 ####[facility] [address] [place], [address] Creatinine [Mass/Vol] 2.39 mg/dL High 0.70-1.20 [facility] Comment on above: Order Comment: UTOx2 PHLEBS, PATIENTS NURSE ANH INFORMED. Performed By: #### L 501.5200, L501.2300, L100.0100, L500.4050 ####[facility] [address] [place], [address] ECRCL 35.18 ml/min Low 50-250 [facility] Comment on above: Order Comment: UTOx2 PHLEBS, PATIENTS NURSE ANH INFORMED. Performed By: #### L 501.5200, L501.2300, L100.0100, L500.4050 ####[facility] [address] [place], [address] GAP 10 Normal 5-15 [facility] Comment on above: Order Comment: UTOx2 PHLEBS, PATIENTS NURSE ANH INFORMED. Performed By: #### L 501.5200, L501.2300, L100.0100, L500.4050 ####[facility] [address] [place], [address] GFR/1.73 sq M.predicted among non-blacks MDRD (S/P/Bld) [Vol rate/Area] 22 mL/min/{1.73_m2} Low >60 [facility] Comment on above: Order Comment: UTOx2 PHLEBS, PATIENTS NURSE ANH INFORMED. Result Comment: mL/m in/1.73m2 CKD-EPI Creatinine Equation (2020) Performed By: #### L 501.5200, L501.2300, L100.0100, L500.4050 ####[facility] [address] [place], [address] Globulin (S) [Mass/Vol] 2.3 g/dL Normal 2.2-4.2 [facility] Comment on above: Order Comment: UTOx2 PHLEBS, PATIENTS NURSE ANH INFORMED. Performed By: #### L 501.5200, L501.2300, L100.0100, L500.4050 ####[facility] [address] [place], [address] Glucose [Mass/Vol] 103 mg/dL High 70-99 [facility] Comment on above: Order Comment: UTOx2 PHLEBS, PATIENTS NURSE ANH INFORMED. Performed By: #### L 501.5200, L501.2300, L100.0100, L500.4050 ####[facility] [address] [place], [address] Potassium [Moles/Vol] 3.7 mmol/L Normal 3.3-5.1 [facility] Comment on above: Order Comment: UTOx2 PHLEBS, PATIENTS NURSE ANH INFORMED. Result Comment: Hemo lysis present, Results??could be affected.?? Performed By: #### L 501.5200, L501.2300, L100.0100, L500.4050 ####[facility] [address] [place], [address] Sodium [Moles/Vol] 141 mmol/L Normal 133-145 [facility] Comment on above: Order Comment: UTOx2 PHLEBS, PATIENTS NURSE ANH INFORMED. Performed By: #### L 501.5200, L501.2300, L100.0100, L500.4050 ####[facility] [address] [place], [address] T PROT 5.5 g/dL Low 5.9-8.4 [facility] Comment on above: Order Comment: UTOx2 PHLEBS, PATIENTS NURSE ANH INFORMED. Performed By: #### L 501.5200, L501.2300, L100.0100, L500.4050 ####[facility] [address] [place], [place], [address] Urea nitrogen [Mass/Vol] 29 mg/dL High 4-19 [facility] Comment on above: Order Comment: UTOx2 PHLEBS, PATIENTS NURSE ANH INFORMED. Performed By: #### L 501.5200, L501.2300, L100.0100, L500.4050 ####[facility] [address] [place], [place], [id number] Eosinophil percentageOrdered By: Kaitlyn Winkler on 11-09-2024 Eosinophils/100 WBC (Bld) 1.1 % 0-5 [facility] Erythrocyte distribution wid th ratioOrdered By: Kaitlyn Winkler on 11-09-2024 Erythrocyte distribution width (RBC) [Ratio] 17.3 % High 11.6-14.6 [facility] Erythrocyte distribution wid th standard deviationOrdered By: Kaitlyn Winkler on 11-09-2024 Erythrocyte distribution width (RBC) [Ratio] 56.2 fl High 35.1-43.9 [facility] Hematocrit Auto (Bld) [Volum e fraction]Ordered By: Kaitlyn Winkler on 11-09-2024 Hematocrit (Bld) [Volume fraction] 27.2 % Low 37-47 [facility] Hemoglobin measurementOrdere d By: Kaitlyn Winkler on 11-09-2024 Hemoglobin (Bld) [Mass/Vol] 8.5 g/dL Low 12.0-15.0 [facility] Immature granulocytes/100 WB C Auto (Bld)Ordered By: Kaitlyn Winkler on 11-09-2024 Immature granulocytes/100 WBC (Bld) 1.300 % High 0.0-0.9 [facility] MCV (mean corpuscular volume ) determinationOrdered By: Kaitlyn Winkler on 11-09-2024 MCV (RBC) [Entitic vol] 89.5 fL 81-99 [facility] Magnesiumon 11-09-2024 Magnesium [Mass/Vol] 1.5 mg/dL Normal 1.5-2.2 [facility] Comment on above: Order Comment: UTOx2 PHLEBS, PATIENTS NURSE ANH INFORMED. Performed By: #### L 501.5200, L501.2300, L100.0100, L500.4050 ####[facility] [address] [place], [address] Magnesium measurement (mass/ volume)Ordered By: Kaitlyn Winkler on 11-09-2024 Magnesium (Unsp spec) [Mass/Vol] 1.5 mg/dL 1.5-2.2 [facility] Mean corpuscular hemoglobin (MCH) determinationOrdered By: Kaitlyn Winkler on 11-09-2024 MCH (RBC) [Entitic mass] 28.0 pg 27.0-32.0 [facility] Monocyte percentageOrdered B y: Kaitlyn Winkler on 11-09-2024 Monocytes/100 WBC (Bld) 6.2 % 0-10 [facility] Neutrophil percentageOrdered By: Kaitlyn Winkler on 11-09-2024 Neutrophils/100 WBC (Bld) 80.8 % High 47-70 [facility] No Panel InformationOrdered By: Kaitlyn Winkler on 11-09-2024 26 U/L <32 [facility] Phosphoruson 11-09-2024 Phosphate [Mass/Vol] 4.3 mg/dL Normal 2.7-4.5 [facility] Comment on above: Order Comment: UTOx2 PHLEBS, PATIENTS NURSE ANH INFORMED. Performed By: #### L 501.5200, L501.2300, L100.0100, L500.4050 ####[facility] [address] [place], [address] Platelet countOrdered By: Beatris Winkler on 11-09-2024 Platelets (Bld) [#/Vol] 135 10*3/uL Low 150-450 [facility] RBC Auto (Bld) [#/Vol]Ordere d By: Kaitlyn Winkler on 11-09-2024 RBC (Bld) [#/Vol] 3.04 10*6/uL Low 4.2-5.4 [facility] Serum globulin measurementOr dered By: Kaitlyn Winkler on 11-09-2024 Globulin (S) [Mass/Vol] 2.3 g/dL 2.2-4.2 [facility] Serum or plasma alanine guerrero otransferase (ALT) measurementOrdered By: Kaitlyn Winkler on 11-09-2024 ALT [Catalytic activity/Vol] 17 U/L <35 [facility] Serum or plasma albumin marisela urement (mass/volume)Ordered By: Kaitlyn Winkler on 11-09-2024 Albumin [Mass/Vol] 3.2 g/dL Low 3.4-4.8 [facility] Serum or plasma albumin/glob ulin mass ratioOrdered By: Kaitlyn Winkler on 11-09-2024 Albumin/Globulin [Mass ratio] 1.4 {ratio} 0.9-2.4 [facility] Serum or plasma alkaline shaheen sphatase measurementOrdered By: Kaitlyn Winkler on 11-09-2024 ALP [Catalytic activity/Vol] 101 U/L 35-104 [facility] Total proteinOrdered By: Keila Winkler on 11-09-2024 Protein [Mass/Vol] 5.5 g/dL Low 5.9-8.4 [facility] Urine Cultureon 11-09-2024 URC #1, 2 Below infectio n level. 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 Submit a new specimen if indicated. Normal [facility] Comment on above: Performed By: #### M 100.2200 ####[facility] [address] [facility] [place], [address] White blood cell (WBC) count Ordered By: Kaitlyn Winkler on 11-09-2024 WBC (Bld) [#/Vol] 4.5 10*3/uL 4.4-11.0 [facility] Basic Metabolic Profile (BMP )on 11-08-2024 BUN/CRE 12.7 RATIO Normal 10-20 [facility] Comment on above: Performed By: #### L 500.2500 ####[facility] [address] [place], [address] Calcium [Mass/Vol] 8.8 mg/dL Normal 7.6-11.0 [facility] Comment on above: Performed By: #### L 500.2500 ####[facility] [address] [place], [address] Chloride [Moles/Vol] 107 mmol/L Normal 98-108 [facility] Comment on above: Performed By: #### L 500.2500 ####[facility] [address] [place], [address] CO2 [Moles/Vol] 21.3 mmol/L Normal 21.0-32.0 [facility] Comment on above: Performed By: #### L 500.2500 ####[facility] [address] [place], [address] Creatinine [Mass/Vol] 2.54 mg/dL High 0.70-1.20 [facility] Comment on above: Performed By: #### L 500.2500 ####[facility] [address] [place], [address] ECRCL 33.11 ml/min Low 50-250 [facility] Comment on above: Performed By: #### L 500.2500 ####[facility] [address] [place], [address] GAP 12 Normal 5-15 [facility] Comment on above: Performed By: #### L 500.2500 ####[facility] [address] [place], [address] GFR/1.73 sq M.predicted among non-blacks MDRD (S/P/Bld) [Vol rate/Area] 21 mL/min/{1.73_m2} Low >60 [facility] Comment on above: Result Comment: mL/m in/1.73m2 CKD-EPI Creatinine Equation (2020) Performed By: #### L 500.2500 ####[facility] [address] [place], [address] Glucose [Mass/Vol] 112 mg/dL High 70-99 [facility] Comment on above: Performed By: #### L 500.2500 ####[facility] [address] [place], [address] Potassium [Moles/Vol] 3.5 mmol/L Normal 3.3-5.1 [facility] Comment on above: Performed By: #### L 500.2500 ####[facility] [address] [place], [address] Sodium [Moles/Vol] 140 mmol/L Normal 133-145 [facility] Comment on above: Performed By: #### L 500.2500 ####[facility] [address] [place], [address] Urea nitrogen [Mass/Vol] 32 mg/dL High 4-19 [facility] Comment on above: Performed By: #### L 500.2500 ####[facility] [address] [place], [address] Bedside Glucoseon 11-08-2024 FINGERSTICK GLU 91 mg/dL Normal 74-106 [facility] Comment on above: Result Comment: HAM GEMENT OF PATIENT CARE PER NURSING PROTOCOL Performed By: #### L 501.080 ####[facility] [address] [place], [address] FINGERSTICK GLU 115 mg/dL High 74-106 [facility] Comment on above: Result Comment: HAM GEMENT OF PATIENT CARE PER NURSING PROTOCOL Performed By: #### L 501.080 ####[facility] [address] [place], [address] FINGERSTICK GLU 98 mg/dL Normal 74-106 [facility] Comment on above: Result Comment: HAM GEMENT OF PATIENT CARE PER NURSING PROTOCOL Performed By: #### L 501.080 ####[facility] [address] [place], [place], [address] FINGERSTICK GLU 95 mg/dL Normal 74-106 [facility] Comment on above: Result Comment: HAM PINEDA OF PATIENT CARE PER NURSING PROTOCOL Performed By: #### L 501.080 ####[facility] [address] [place], [place], [id number] 12 Lead EKGon 11-07-2024 12 Lead EKG Normal [facility] Abdomen/Pelvis without Conto n 11-07-2024 Abdomen/Pelvis without Cont Normal [facility] Absolute lymphocyte countOrd ered By: Armen Gonzales on 11-07-2024 Lymphocytes Auto (Unsp spec) [#/Vol] 0.87 10*3/uL 0.83-4.51 [facility] Activated partial thrombopla stin time (aPTT) in platelet poor plasma by coagulation aOrdered By: Armen Gonzales on 11-07-2024 aPTT Coag (PPP) [Time] 24.6 s 24.1-36.2 [facility] Alcohol, Blood (Medical)-Ser umon 11-07-2024 SERUM ETOH < 10.1 Normal <=10.0 [facility] Comment on above: Result Comment: This test is for medical purposes only. The legaldefinition of intoxication varies according to local law. Performed By: #### L 505.5000, L501.9100 ####[facility] [address] [place], [place], [address] Amphetamine detection with 1 000 ng/mL as cutoffOrdered By: Armen Gonzales on 11-07-2024 Amphetamines Screen method >1000 ng/mL Ql (U) Negative < 200 ng/mL [facility] Anion gap in Serum or Plasma Ordered By: Armen Gonzales on 11-07-2024 Anion gap [Moles/Vol] 17 mmol/L High 5-15 [facility] Automated lymphocyte count a s percentage of total leukocytesOrdered By: Armen Gonzales on 11-07-2024 Lymphocytes/100 WBC Auto (Unsp spec) 9.7 % Low 19-41 [facility] BUN/creatinine ratioOrdered By: Armenblue Gonzales on 11-07-2024 Urea nitrogen/Creatinine [Mass ratio] 12.1 mg/mg 10-20 [facility] Basophil percentageOrdered B y: Armen Janet on 11-07-2024 Basophils/100 WBC (Bld) 0.2 % 0-1 [facility] Bedside Glucoseon 11-07-2024 FINGERSTICK GLU 79 mg/dL Normal 74-106 [facility] Comment on above: Result Comment: HAM PINEDA OF PATIENT CARE PER NURSING PROTOCOL Performed By: #### L 501.080 ####[facility] [address] [place], [place], [address] Bilirubin Test strip Ql (U)O rdered By: Armen Gonzales on 11-07-2024 Bilirubin Ql (U) Negative Negative [facility] Bilirubin, totalOrdered By: Armenblue Gonzales on 11-07-2024 Bilirubin [Mass/Vol] 0.60 mg/dL Normal 0.00-1.30 [facility] Comment on above: Performed By: #### L 500.4050, L501.3620 ####[facility] [address] [place], [place], [id number] Brain/Head without Contrasto n 11-07-2024 Brain/Head without Contrast Normal [facility] CBC W/Diff, Automatedon 06 Absolute Lymph 0.87 X10 3/uL Normal 0.83-4.51 [facility] Comment on above: Performed By: #### L 300.4310, M200.1000, L100.0100, L501.4021, L503.6005, L300.3900 ####[facility] [address] [place], [address] Absolute Neut 7.6 X10 3/uL Normal 2.0-7.7 [facility] Comment on above: Performed By: #### L 300.4310, M200.1000, L100.0100, L501.4021, L503.6005, L300.3900 ####[facility] [address] [place], [address] Basophils/100 WBC (Bld) 0.2 % Normal 0-1 [facility] Comment on above: Performed By: #### L 300.4310, M200.1000, L100.0100, L501.4021, L503.6005, L300.3900 ####[facility] [address] [place], [address] Eosinophils/100 WBC (Bld) 0.4 % Normal 0-5 [facility] Comment on above: Performed By: #### L 300.4310, M200.1000, L100.0100, L501.4021, L503.6005, L300.3900 ####[facility] [address] [place], [address] Erythrocyte distribution width (RBC) [Ratio] 16.9 % High 11.6-14.6 [facility] Comment on above: Performed By: #### L 300.4310, M200.1000, L100.0100, L501.4021, L503.6005, L300.3900 ####[facility] [address] [place], [address] Hematocrit (Bld) [Volume fraction] 33.7 % Low 37-47 [facility] Comment on above: Performed By: #### L 300.4310, M200.1000, L100.0100, L501.4021, L503.6005, L300.3900 ####[facility] [address] [place], [address] Hemoglobin (Bld) [Mass/Vol] 10.8 g/dL Low 12.0-15.0 [facility] Comment on above: Performed By: #### L 300.4310, M200.1000, L100.0100, L501.4021, L503.6005, L300.3900 ####[facility] [address] [place], [address] IG% 1.600 High 0.0-0.9 [facility] Comment on above: Result Comment: IG% - Immature Granulocytes (promyelocytes, myelocytes andmetamyelocytes) > 1% indicates that a LEFT SHIFT is Present. Performed By: #### L 300.4310, M200.1000, L100.0100, L501.4021, L503.6005, L300.3900 ####[facility] [address] [place], [address] Lymphocytes/100 WBC (Bld) 9.7 % Low 19-41 [facility] Comment on above: Performed By: #### L 300.4310, M200.1000, L100.0100, L501.4021, L503.6005, L300.3900 ####[facility] [address] [place], [address] MCH (RBC) [Entitic mass] 28.0 pg Normal 27.0-32.0 [facility] Comment on above: Performed By: #### L 300.4310, M200.1000, L100.0100, L501.4021, L503.6005, L300.3900 ####[facility] [address] [place], [address] MCHC (RBC) [Mass/Vol] 32.0 g/dL Normal 32-36 [facility] Comment on above: Performed By: #### L 300.4310, M200.1000, L100.0100, L501.4021, L503.6005, L300.3900 ####[facility] [address] [place], [address] MCV (RBC) [Entitic vol] 87.3 fL Normal 81-99 [facility] Comment on above: Performed By: #### L 300.4310, M200.1000, L100.0100, L501.4021, L503.6005, L300.3900 ####[facility] [address] [place], [address] Monocytes/100 WBC (Bld) 4.1 % Normal 0-10 [facility] Comment on above: Performed By: #### L 300.4310, M200.1000, L100.0100, L501.4021, L503.6005, L300.3900 ####[facility] [address] [place], [address] Neutrophils/100 WBC (Bld) 84.0 % High 47-70 [facility] Comment on above: Performed By: #### L 300.4310, M200.1000, L100.0100, L501.4021, L503.6005, L300.3900 ####[facility] [address] [place], [address] Nucleated RBC (Bld) [#/Vol] 0 10*3/uL Normal 0-5 [facility] Comment on above: Performed By: #### L 300.4310, M200.1000, L100.0100, L501.4021, L503.6005, L300.3900 ####[facility] [address] [place], [address] Platelet mean volume (Bld) [Entitic vol] 9.5 fL Normal 6.2-12.0 [facility] Comment on above: Performed By: #### L 300.4310, M200.1000, L100.0100, L501.4021, L503.6005, L300.3900 ####[facility] [address] [place], [address] Platelets (Bld) [#/Vol] 192 10*3/uL Normal 150-450 [facility] Comment on above: Performed By: #### L 300.4310, M200.1000, L100.0100, L501.4021, L503.6005, L300.3900 ####[facility] [address] [place], [address] RBC (Bld) [#/Vol] 3.86 10*6/uL Low 4.2-5.4 [facility] Comment on above: Performed By: #### L 300.4310, M200.1000, L100.0100, L501.4021, L503.6005, L300.3900 ####[facility] [address] [place], [address] RDW SD 53.4 fl High 35.1-43.9 [facility] Comment on above: Performed By: #### L 300.4310, M200.1000, L100.0100, L501.4021, L503.6005, L300.3900 ####[facility] [address] [place], [address] WBC (Bld) [#/Vol] 9.0 10*3/uL Normal 4.4-11.0 [facility] Comment on above: Performed By: #### L 300.4310, M200.1000, L100.0100, L501.4021, L503.6005, L300.3900 ####[facility] [address] [place], [address] CPK Total, Creatine Kinaseon 11-07-2024 CPK TOTAL 54 U/L Normal 24-195 [facility] Comment on above: Performed By: #### L 500.4050, L501.3620 ####[facility] [address] [place], [address] Carbon dioxide, total [Moles /volume] in Central venous bloodOrdered By: Armen Gonzales on 11-07-2024 CO2 [Moles/Vol] 21.2 mmol/L Normal 21.0-32.0 [facility] Comment on above: Performed By: #### L 500.4050, L501.3620 ####[facility] [address] [place], [address] Chest PA and Lateralon 11-07 Chest PA and Lateral Normal [facility] Chloride assayOrdered By: Zachary Gonzales on 11-07-2024 Chloride [Moles/Vol] 101 mmol/L Normal 98-108 [facility] Comment on above: Performed By: #### L 500.4050, L501.3620 ####[facility] [address] [place], [address] Comprehensive Metabolic Prof ilon 11-07-2024 ALK PHOS 120 U/L High 35-104 [facility] Comment on above: Performed By: #### L 500.4050, L501.3620 ####[facility] [address] [place], [address] AST [Catalytic activity/Vol] 38 U/L High <=31 [facility] Comment on above: Result Comment: Hemo lysis present, Results??could be affected.?? Performed By: #### L 500.4050, L501.3620 ####[facility] [address] [place], [address] BUN/CRE 12.1 RATIO Normal 10-20 [facility] Comment on above: Performed By: #### L 500.4050, L501.3620 ####[facility] [address] [place], [address] ECRCL 24.26 ml/min Low 50-250 [facility] Comment on above: Performed By: #### L 500.4050, L501.3620 ####[facility] [address] [place], [address] GAP 17 High 5-15 [facility] Comment on above: Performed By: #### L 500.4050, L501.3620 ####[facility] [address] [place], [place], [address] Potassium [Moles/Vol] 2.6 mmol/L Invalid Interpretation Code 3.3-5.1 [facility] Comment on above: Result Comment: Hemo lysis present, Results??could be affected.??Critical Result(s) Called at: by:??Results read back bysame. Performed By: #### L 500.4050, L501.3620 ####[facility] [address] [place], [address] T PROT 6.7 g/dL Normal 5.9-8.4 [facility] Comment on above: Performed By: #### L 500.4050, L501.3620 ####[facility] [address] [place], [place], [address] Emergency Department Summary on 11-07-2024 Emergency Department Summary Normal [facility] Eosinophil percentageOrdered By: Armen Gonzales on 11-07-2024 Eosinophils/100 WBC (Bld) 0.4 % 0-5 [facility] Erythrocyte distribution wid th ratioOrdered By: Armen Gonzales on 11-07-2024 Erythrocyte distribution width (RBC) [Ratio] 16.9 % High 11.6-14.6 [facility] Erythrocyte distribution wid th standard deviationOrdered By: Armen Gonzales on 11-07-2024 Erythrocyte distribution width (RBC) [Ratio] 53.4 fl High 35.1-43.9 [facility] Glomerular filtration rate ( GFR) estimation/1.73 sq m using serum, plasma, or whole bOrdered By: Armen Gonzales on 11-07-2024 GFR/1.73 sq M.predicted among non-blacks MDRD (S/P/Bld) [Vol rate/Area] 16 mL/min/{1.73_m2} Low >60 [facility] Comment on above: Result Comment: mL/m in/1.73m2 CKD-EPI Creatinine Equation (2020) Performed By: #### L 500.4050, L501.3620 ####[facility] [address] [place], [address] H AND P Exam - Hospitaliston 11-07-2024 H&P Exam - Hospitalist Normal [facility] Hematocrit Auto (Bld) [Volum e fraction]Ordered By: Armen Gonzales on 11-07-2024 Hematocrit (Bld) [Volume fraction] 33.7 % Low 37-47 [facility] Hemoglobin measurementOrdere d By: Armen Gonzales on 11-07-2024 Hemoglobin (Bld) [Mass/Vol] 10.8 g/dL Low 12.0-15.0 [facility] Immature granulocytes/100 WB C Auto (Bld)Ordered By: Armen Gonzales on 11-07-2024 Immature granulocytes/100 WBC (Bld) 1.600 % High 0.0-0.9 [facility] Ketones Test strip Ql (U)Ord ered By: Armenblue Gonzales on 11-07-2024 Ketones Ql (U) Negative Negative [facility] Kidney and Bladderon 025 Kidney and Bladder Normal [facility] L499.0042on 11-07-2024 Trop T High Sen 34 ng/L High <=14 [facility] Comment on above: Performed By: #### L 499.0042 ####[facility] [address] [place], [address] L499.0043on 11-07-2024 Trop T High Sen 33 ng/L High <=14 [facility] Comment on above: Performed By: #### L 499.0043 ####[facility] [address] [place], [address] L501.4021on 11-07-2024 Trop T High Sen 41 ng/L High <=14 [facility] Comment on above: Performed By: #### L 300.4310, M200.1000, L100.0100, L501.4021, L503.6005, L300.3900 ####[facility] [address] [place], [address] Lactic Acidon 11-07-2024 Lactate [Moles/Vol] 1.1 mmol/L Normal 0.0-2.0 [facility] Comment on above: Order Comment: Y Performed By: #### L 300.4310, M200.1000, L100.0100, L501.4021, L503.6005, L300.3900 ####[facility] [address] [facility] [place], [place], [address] MCV (mean corpuscular volume ) determinationOrdered By: Armen Gonzales on 11-07-2024 MCV (RBC) [Entitic vol] 87.3 fL 81-99 [facility] Magnesiumon 11-07-2024 Magnesium [Mass/Vol] 1.6 mg/dL Normal 1.5-2.2 [facility] Comment on above: Performed By: #### L 501.5200 ####[facility] [address] [place], [place], [address] Magnesium measurement (mass/ volume)Ordered By: Armen Gonzales on 11-07-2024 Magnesium (Unsp spec) [Mass/Vol] 1.6 mg/dL 1.5-2.2 [facility] Mean corpuscular hemoglobin (MCH) determinationOrdered By: Armen Gonzales on 11-07-2024 MCH (RBC) [Entitic mass] 28.0 pg 27.0-32.0 [facility] Monocyte percentageOrdered B y: Armen Gonzales on 11-07-2024 Monocytes/100 WBC (Bld) 4.1 % 0-10 [facility] Mucus LM Ql (Urine sed)Order ed By: Armen Gonzales on 11-07-2024 Mucus Ql (Urine sed) 0 SEEN /hpf [facility] Neutrophil percentageOrdered By: Armen Gonzales on 11-07-2024 Neutrophils/100 WBC (Bld) 84.0 % High 47-70 [facility] Nitrite Test strip Ql (U)Ord ered By: Armen Gonzales on 11-07-2024 Nitrite Ql (U) Negative Negative [facility] No Panel InformationOrdered By: Armen Gonzales on 11-07-2024 Negative < 200 ng/mL [facility] 38 U/L High <32 [facility] Partial Thromboplast Timeon 11-07-2024 aPTT Coag (Bld) [Time] 24.6 s Normal 24.1-36.2 [facility] Comment on above: Performed By: #### L 300.4310, M200.1000, L100.0100, L501.4021, L503.6005, L300.3900 ####[facility] [address] [place], [address] Platelet countOrdered By: Zachary Gonzales on 11-07-2024 Platelets (Bld) [#/Vol] 192 10*3/uL 150-450 [facility] Potassium measurement (mass/ volume)Ordered By: Armen Gonzales on 11-07-2024 Potassium (Unsp spec) [Mass/Vol] 2.6 mmol/L Low 3.3-5.1 [facility] Protein Test strip Ql (U)Ord ered By: Armen Gonzales on 11-07-2024 Protein Ql (U) 100 mg/dl High Negative [facility] Prothrombin Time w/INRon INR Coag (PPP) [Relative time] 0.9 {INR} Normal [facility] Comment on above: Performed By: #### L 300.4310, M200.1000, L100.0100, L501.4021, L503.6005, L300.3900 ####[facility] [address] [place], [address] PT Coag (PPP) [Time] 12.5 s Normal 11.7-14.9 [facility] Comment on above: Performed By: #### L 300.4310, M200.1000, L100.0100, L501.4021, L503.6005, L300.3900 ####[facility] [address] [place], [address] Prothrombin timeOrdered By: Armen Gonzales on 11-07-2024 PT Coag (PPP) [Time] 12.5 s 11.7-14.9 [facility] RBC Auto (Bld) [#/Vol]Ordere d By: Armen Gonzales on 11-07-2024 RBC (Bld) [#/Vol] 3.86 10*6/uL Low 4.2-5.4 [facility] Screening urine fentanyl yulia surementOrdered By: Armen Gonzales on 11-07-2024 fentaNYL Screen Ql (U) Negative [facility] Serum creatinine measurement (mass/volume)Ordered By: Armen Gonzales on 11-07-2024 Creatinine [Mass/Vol] 3.19 mg/dL High 0.70-1.20 [facility] Comment on above: Performed By: #### L 500.4050, L501.3620 ####[facility] [address] [place], [address] Serum globulin measurementOr dered By: Armen Gonzales on 11-07-2024 Globulin (S) [Mass/Vol] 2.9 g/dL Normal 2.2-4.2 [facility] Comment on above: Performed By: #### L 500.4050, L501.3620 ####[facility] [address] [place], [address] Serum glucose measurement (m ass/volume)Ordered By: Armen Gonzales on 11-07-2024 Glucose [Mass/Vol] 94 mg/dL Normal 70-99 [facility] Comment on above: Performed By: #### L 500.4050, L501.3620 ####[facility] [address] [place], [address] Serum or plasma alanine guerrero otransferase (ALT) measurementOrdered By: Armen Gonzales on 11-07-2024 ALT [Catalytic activity/Vol] 23 U/L Normal <=34 [facility] Comment on above: Performed By: #### L 500.4050, L501.3620 ####[facility] [address] [place], [address] Serum or plasma albumin marisela urement (mass/volume)Ordered By: Armen Gonzales on 11-07-2024 Albumin [Mass/Vol] 3.9 g/dL Normal 3.4-4.8 [facility] Comment on above: Performed By: #### L 500.4050, L501.3620 ####[facility] [address] [place], [place], [address] Serum or plasma albumin/glob ulin mass ratioOrdered By: Armen Gonzales on 11-07-2024 Albumin/Globulin [Mass ratio] 1.4 {ratio} Normal 0.9-2.4 [facility] Comment on above: Performed By: #### L 500.4050, L501.3620 ####[facility] [address] [facility] [place], [address] Serum or plasma alkaline shaheen sphatase measurementOrdered By: Armen Gonzales on 11-07-2024 ALP [Catalytic activity/Vol] 120 U/L High 35-104 [facility] Serum or plasma calcium marisela urement (mass/volume)Ordered By: Armen Gonzales on 11-07-2024 Calcium [Mass/Vol] 9.5 mg/dL Normal 7.6-11.0 [facility] Comment on above: Performed By: #### L 500.4050, L501.3620 ####[facility] [address] [facility] [place], [place], [address] Serum or plasma creatine kin ase activityOrdered By: Armen Gonzales on 11-07-2024 CK [Catalytic activity/Vol] 54 U/L 24-195 [facility] Serum or plasma ethanol marisela urement (mass/volume)Ordered By: Armen Gonzales on 11-07-2024 Ethanol [Mass/Vol] mg/dL <10.1 [facility] Serum or plasma urea nitroge n measurement (mass/volume)Ordered By: Armen Gonzales on 11-07-2024 Urea nitrogen [Mass/Vol] 39 mg/dL High 4-19 [facility] Comment on above: Performed By: #### L 500.4050, L501.3620 ####[facility] [address] [place], [address] Sodium levelOrdered By: Taj Gonzales on 11-07-2024 Sodium [Moles/Vol] 138 mmol/L Normal 133-145 [facility] Comment on above: Performed By: #### L 500.4050, L501.3620 ####[facility] [address] [place], [place], [address] Spine Cervical without Contr ason 11-07-2024 Spine Cervical without Contras Normal [facility] Squamous epithelial cells de tection in urine sediment by light microscopyOrdered By: Armen Gonzales on 11-07-2024 Epithelial cells.squamous LM Ql (Urine sed) 5-10 SEEN /hpf - [facility] Total proteinOrdered By: Vinita Gonzales on 11-07-2024 Protein [Mass/Vol] 6.7 g/dL 5.9-8.4 [facility] Troponin T.cardiac [Mass/vol ume] in Serum or Plasma by High sensitivity methodOrdered By: Armen Gonzales on 11-07-2024 Troponin T.cardiac High sensitivity method [Mass/Vol] 33 ng/L High <14 [facility] Troponin T.cardiac High sensitivity method [Mass/Vol] 34 ng/L High <14 [facility] Troponin T.cardiac High sensitivity method [Mass/Vol] 41 ng/L High <14 [facility] Urinalysis, Completeon 11-07 RBC 0-5 SEEN Normal 0-5 [facility] Comment on above: Order Comment: GULSHAN CTOR TO SPECIFY Performed By: #### L 400.0001 ####[facility] [address] [place], [address] BACTERIA RARE Normal None Seen [facility] Comment on above: Order Comment: GULSHAN CTOR TO SPECIFY Performed By: #### L 400.0001 ####[facility] [address] [place], [address] EPI,SQUAMOUS 5-10 SEEN Normal 5-10 [facility] Comment on above: Order Comment: GULSHAN CTOR TO SPECIFY Performed By: #### L 400.0001 ####[facility] [address] [place], [address] WBC 0-5 SEEN Normal 0-5 [facility] Comment on above: Order Comment: GULSHAN CTOR TO SPECIFY Performed By: #### L 400.0001 ####[facility] [address] [place], [address] Mucus Ql (Urine sed) 0 SEEN Normal [facility] Comment on above: Order Comment: GULSHAN CTOR TO SPECIFY Performed By: #### L 400.0001 ####[facility] [address] [facility] [address] Urine Drug Screen (VISTA)on 11-07-2024 AMPHETAMINES Negative Normal <1000 ng/mL [facility] Comment on above: Performed By: #### L 505.5000, L501.9100 ####[facility] [address] [facility] [address] BARBITIURATES Negative Normal < 200 ng/mL [facility] Comment on above: Performed By: #### L 505.5000, L501.9100 ####[facility] [address] [place], [address] BENZODIAZIPINE Positive Normal < 200 ng/mL [facility] Comment on above: Result Comment: If c onfirmation testing is needed, a separate order will berequired to send out testing to the reference laboratory. Performed By: #### L 505.5000, L501.9100 ####[facility] [address] [place], [address] BUP Ur Drug Scr Negative Normal < 200 ng/mL [facility] Comment on above: Performed By: #### L 505.5000, L501.9100 ####[facility] [address] [place], [address] COCAINE Negative Normal < 300 ng/mL [facility] Comment on above: Performed By: #### L 505.5000, L501.9100 ####[facility] [address] [place], [address] Fentanyl Negative Normal [facility] Comment on above: Performed By: #### L 505.5000, L501.9100 ####[facility] [address] [place], [address] METHADONE Negative Normal < 300 ng/mL [facility] Comment on above: Performed By: #### L 505.5000, L501.9100 ####[facility] [address] [place], [address] OPIATES Positive Normal < 300 ng/mL [facility] Comment on above: Result Comment: If c onfirmation testing is needed, a separate order will berequired to send out testing to the reference laboratory. Performed By: #### L 505.5000, L501.9100 ####[facility] [address] [place], [address] OXYCODONE Negative Normal < 100 ng/mL [facility] Comment on above: Performed By: #### L 505.5000, L501.9100 ####[facility] [address] [place], [address] PCP Negative Normal < 25 ng/mL [facility] Comment on above: Performed By: #### L 505.5000, L501.9100 ####[facility] [address] [place], [address] THC Negative Normal < 50 ng/mL [facility] Comment on above: Performed By: #### L 505.5000, L501.9100 ####[facility] [address] [place], [address] Urine Sodiumon 11-07-2024 UR NA < 20 Normal Not Establ. 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 Abnormal [facility] Bacteria identified Cx Nom (U) Positive Abnormal [facility] Urine glucose detectionOrder ed By: Armen Gonzales on 11-07-2024 Glucose Ql (U) Normal mg/dl Normal [facility] Urine leukocyte esterase det ection by dipstickOrdered By: Armen Gonzales on 11-07-2024 Leukocyte esterase Test strip Ql (U) Negative Negative [facility] Urine pHOrdered By: Armen molina on 11-07-2024 pH (U) 6.0 [pH] 5.0 - 8.0 [facility] Urine phencyclidine (PCP) de tectionOrdered By: Armen Gonzales on 11-07-2024 Phencyclidine Ql (U) Negative < 25 ng/mL [facility] Urine sediment bacteria coun t by microscopy (number/high power field)Ordered By: Armen Gonzales on 11-07-2024 Bacteria LM.HPF (Urine sed) [#/Area] RARE /hpf None Seen [facility] Urine sodium measurement (mo les/volume)Ordered By: Kaitlyn Winkler on 11-07-2024 Sodium (U) [Moles/Vol] mmol/L Not Establ. [facility] Urine specific gravity measu rementOrdered By: Armen Gonzales on 11-07-2024 Specific gravity (U) [Rel density] 1.010 1.002-1.030 [facility] Urine urobilinogen measureme ntOrdered By: Armen Gonzales on 11-07-2024 Urobilinogen Ql (U) Normal mg/dl Normal [facility] White blood cell (WBC) count Ordered By: Armen Gonzales on 11-07-2024 WBC (Bld) [#/Vol] 9.0 10*3/uL 4.4-11.0 [facility] White blood cell countOrdere d By: Armen Gonzales on 11-07-2024 White blood cell count 0-5 SEEN /hpf 0-5 [facility] CNPNon 10-16-2024 CNPN Telephone (HEMAWS) -------- ALFIE HOGAN ([id number]) 1960 F Date Time Provider Department 10/16/24 JOSE DENNISON During your visit today, we recorded the following information about you: Jose Dennison DO 10/16/2024 4:51 PM Signed Can let her know her CBC is now essentially normal. Remainder of the lab work was normal but B12 was in the low normal range so I would like to get an MMA to verify if there is underlying B12 deficiency. Order filed. DO Nikhil Beard Melanie, LPN 10/17/2024 8:48 AM Signed Patient is aware of all information and will have MMA drawn 10/31/2024, when here for other labs. Aiyana Acevedo LPN Allergies As of Date: 10/16/2024 Noted Allergy Reaction CAT HAIR STANDARDIZED ALLERGENIC *10/31/2017 14 - Other: See Comments DUST 04/13/2014 14 - Other: See Comments Comments: sneezing PENICILLINS 09/13/2005 PERCOCET (OXYCODONE-ACETAMINOPHEN )01/13/2015 9 - Itching SEASONAL ALLERGIES 04/13/2014 14 - Other: See Comments Comments: ragweed, cats, pollen cause sneezing and eyes watering Date Reviewed: 10/15/2024 Reviewed by: Jay Miles MA - Fully Assessed Reason for Visit: Results [95] Primary Visit Diagnosis:Low vitamin B12 level [R79.89] Order(s):METHYLMALONIC ACID [SQMMA] Order #: [id number] FUTURE Prescriptions as of 10/17/2024 - trospium (SANCTURA) 20 mg tablet Take 20 mg by mouth two times a day. - metFORMIN ER (GLUCOPHAGE XR) 500 mg 24 hr tablet Take 1 tablet by mouth two times a day. - ALPRAZolam (XANAX) 0.5 mg tablet Take 0.5 mg by mouth three times a day as needed. - temazepam (RESTORIL) 30 mg cap Take 30 mg by mouth at bedtime as needed. - MOUNJARO 7.5 mg/0.5 mL pen injector Inject 7.5 mg subcutaneously one time a week. - carvedilol (COREG) 3.125 mg tablet Take 3.125 mg by mouth two times a day with meals. - rosuvastatin (CRESTOR) 40 mg tablet Take 40 mg by mouth once daily. - magnesium oxide (MAG-OX) 400 mg (241.3 mg magnesium) tablet Take 1 tablet by mouth once daily. - FLUoxetine (PROZAC) 10 mg capsule Take 40 mg by mouth once daily. - docusate sodium (COLACE) 100 mg capsule Take 2 capsules by mouth as needed. - prochlorperazine (COMPAZINE) 10 mg tablet Take 1 tablet by mouth every 6 hours as needed for Nausea/Vomiting. - mometasone-formoterol (DULERA) 100-5 mcg/actuation inhaler Inhale 2 Puffs as instructed twice daily. - pantoprazole DR (PROTONIX) 40 mg tablet Take 40 mg by mouth once daily. - albuterol HFA (VENTOLIN HFA) 90 mcg/actuation inhaler Inhale 2 Puffs as instructed every 4 hours as needed for Wheezing/Shortness of Breath. Problem List As Of Date 10/16/2024 Noted Resolved CHOLECYSTITIS SEE ALSO GALLBLADDER CHRONIC [K*09/11/2006 12/15/2014 Diaphragmatic hernia without mention of obstruc*04/11/2011 Acute gastritis without mention of hemorrhage [*04/11/2011 12/15/2014 Esophagitis, unspecified [K20.90] 04/11/2011 12/15/2014 Dyspepsia and other specified disorders of func*04/11/2011 12/15/2014 Hypertension [I10] 12/15/2014 Tobacco use disorder [F17.200] 12/15/2014 GENNARO (obstructive sleep apnea) [G47.33] Arthritis, multiple joint involvement [M12.9] Asthma [J45.909] Depression with anxiety [F41.8] Hyperlipidemia [E78.5] 11/28/2011 12/15/2014 Right groin pain [R10.31] 07/29/2012 11/22/2016 Acute right hip pain [M25.551] 08/05/2012 11/22/2016 DDD (degenerative disc disease), lumbar [M51.36* Acute renal failure (HCC) [N17.9] 11/22/2016 Lumbar scoliosis [M41.9] 12/15/2014 Primary osteoarthritis of right hip [M16.11] 01/11/2015 History of right hip replacement [Z96.641] 02/01/2015 History of kidney injury [Z87.828] 11/22/2016 Chronic insomnia [F51.04] 08/03/2017 Chronic hypoxemic respiratory failure (HCC) [J9*02/02/2020 Diaphragm dysfunction [J98.6] 05/14/2020 Thrombocytopenia, secondary [D69.59] 06/24/2021 Acute deep vein thrombosis (DVT) of right peron*08/17/2021 Encounter Status:Closed by AIYANA ACEVEDO on 10/17/24 Normal [facility] CBC W Auto Differential pane l (Bld)on 10-15-2024 Basophils (Bld) [#/Vol] [facility] Basophils/100 WBC (Bld) 0.2 % C [facility] Differential cell count method Nom (Bld) Auto [facility] Eosinophils (Bld) [#/Vol] 0.04 10*3/uL [facility] Eosinophils/100 WBC (Bld) 0.5 % [facility] Erythrocyte distribution width (RBC) [Ratio] 15.9 % High 11.5 - 15.0 % [facility] Hematocrit (Bld) [Volume fraction] 38.1 % 36.0 - 46.0 % [facility] Hemoglobin (Bld) [Mass/Vol] 11.7 g/dL 11.5 - 15.5 g/dL [facility] Immature granulocytes (Bld) [#/Vol] 0.03 10*3/uL [facility] Immature granulocytes/100 WBC (Bld) 0.4 % [facility] Interpretation and review of laboratory results Abnormal [facility] Lymphocytes (Bld) [#/Vol] 1.2 10*3/uL [facility] Lymphocytes/100 WBC (Bld) 14.2 % [facility] MCH (RBC) [Entitic mass] 27 pg 26.0 - 34.0 pg [facility] MCHC (RBC) [Mass/Vol] 30.7 g/dL 30.5 - 36.0 g/dL [facility] MCV (RBC) [Entitic vol] 87.8 fL 80.0 - 100.0 fL [facility] Monocytes (Bld) [#/Vol] 0.54 10*3/[facility]L [facility] Monocytes/100 WBC (Bld) 6.4 % [facility] Neutrophils (Bld) [#/Vol] 6.61 10*3/uL [facility] Neutrophils/100 WBC (Bld) 78.3 % [facility] Nucleated RBC (Bld) [#/Vol] NINF [facility] Nucleated RBC/100 WBC (Bld) [Ratio] 0 % /100 WBC [facility] Platelet mean volume (Bld) [Entitic vol] 9.3 fL 9.0 - 12.7 fL [facility] Platelets (Bld) [#/Vol] 201 10*3/uL [facility] RBC (Bld) [#/Vol] 4.34 10*6/uL 3.90 - 5.2 0 m/uL [facility] WBC (Bld) [#/Vol] 8.44 10*3/uL [facility] Basophils (Bld) [#/Vol] 10*3/uL Normal <0.11 [facility] Comment on above: Order Comment: Speci men Type: BLOOD SPECIMEN Ordering Facility: [facility] Address: [address] [place] [address] Performed By: #### 5 7021-8 #### [facility] [id number] [address] [place] [address] OF [facility] Basophils/100 WBC (Bld) 0.2 % Normal [facility] Comment on above: Order Comment: Speci men Type: BLOOD SPECIMEN Ordering Facility: [facility] Address: [address] [place] [address] Performed By: #### 5 7021-8 #### [facility] CLIA [id number] [address] [place] [address] [place] Differential cell count method Nom (Bld) Auto Normal [facility] Comment on above: Order Comment: Speci men Type: BLOOD SPECIMEN Ordering Facility: [facility] Address: [address] [place] [address] Performed By: #### 5 7021-8 #### [facility] CLIA [id number] [address] [place] [address] [place] Eosinophils (Bld) [#/Vol] 0.04 10*3/uL Normal <0.46 [facility] Comment on above: Order Comment: Speci men Type: BLOOD SPECIMEN Ordering Facility: [facility] Address: [address] [place] [address] Performed By: #### 5 7021-8 #### [facility] CLIA [id number] [address] [place] [address] [place] Eosinophils/100 WBC (Bld) 0.5 % Normal [facility] Comment on above: Order Comment: Speci men Type: BLOOD SPECIMEN Ordering Facility: [facility] Address: [address] [place] [address] Performed By: #### 5 7021-8 #### [facility] CLIA [id number] [address] [place] [address] [place] Erythrocyte distribution width (RBC) [Ratio] 15.9 % High 11.5-15.0 [facility] Comment on above: Order Comment: Speci men Type: BLOOD SPECIMEN Ordering Facility: [facility] Address: [address] [place] [address] Performed By: #### 5 7021-8 #### [facility] CLIA [id number] [address] [place] [address] [place] Hematocrit (Bld) [Volume fraction] 38.1 % Normal 36.0-46.0 [facility] Comment on above: Order Comment: Speci men Type: BLOOD SPECIMEN Ordering Facility: [facility] Address: [address] [place] [address] Performed By: #### 5 7021-8 #### [facility] CLIA [id number] [address] [place] [address] [place] Hemoglobin (Bld) [Mass/Vol] 11.7 g/dL Normal 11.5-15.5 [facility] Comment on above: Order Comment: Speci men Type: BLOOD SPECIMEN Ordering Facility: [facility] Address: [address] [place] [address] Performed By: #### 5 7021-8 #### [facility] CLIA [id number] [address] [place] [address] [place] Immature granulocytes (Bld) [#/Vol] 0.03 10*3/uL Normal <0.10 [facility] Comment on above: Order Comment: Speci men Type: BLOOD SPECIMEN Ordering Facility: [facility] Address: [address] [place] [address] Performed By: #### 5 7021-8 #### [facility] CLIA [id number] [address] [place] [address] [place] Immature granulocytes/100 WBC (Bld) 0.4 % Normal [facility] Comment on above: Order Comment: Speci men Type: BLOOD SPECIMEN Ordering Facility: [facility] Address: [address] [place] [address] Performed By: #### 5 7021-8 #### [facility] CLIA [id number] [address] [place] [address] [place] Lymphocytes (Bld) [#/Vol] 1.20 10*3/uL Normal 1.00-4.00 [facility] Comment on above: Order Comment: Speci men Type: BLOOD SPECIMEN Ordering Facility: [facility] Address: [address] [place] [address] Performed By: #### 5 7021-8 #### [facility] CLIA [id number] [address] [place] [address] STATES [facility] Lymphocytes/100 WBC (Bld) 14.2 % Normal [facility] Comment on above: Order Comment: Speci men Type: BLOOD SPECIMEN Ordering Facility: [facility] Address: [address] [place] [address] Performed By: #### 5 7021-8 #### [facility] CLIA [id number] [address] [place] [address] [place] MCH (RBC) [Entitic mass] 27.0 pg Normal 26.0-34.0 [facility] Comment on above: Order Comment: Speci men Type: BLOOD SPECIMEN Ordering Facility: [facility] Address: [address] [place] [address] Performed By: #### 5 7021-8 #### [id number] [address] [place] [address] [place] MCHC (RBC) [Mass/Vol] 30.7 g/dL Normal 30.5-36.0 [facility] Comment on above: Order Comment: Speci men Type: BLOOD SPECIMEN Ordering Facility: [facility] Address: [address] [place] [address] Performed By: #### 5 7021-8 #### [facility] CLIA [id number] [address] [place] [address] [place] MCV (RBC) [Entitic vol] 87.8 fL Normal 80.0-100.0 [facility] Comment on above: Order Comment: Speci men Type: BLOOD SPECIMEN Ordering Facility: [facility] Address: [address] [place] [address] Performed By: #### 5 7021-8 #### [facility] CLIA [id number] [address] [place] [address] [place] Monocytes (Bld) [#/Vol] 0.54 10*3/uL Normal <0.87 [facility] Comment on above: Order Comment: Speci men Type: BLOOD SPECIMEN Ordering Facility: [facility] Address: [address] [place] [address] Performed By: #### 5 7021-8 #### [facility] CLIA [id number] [address] [place] [address] [place] Monocytes/100 WBC (Bld) 6.4 % Normal [facility] Comment on above: Order Comment: Speci men Type: BLOOD SPECIMEN Ordering Facility: [facility] Address: [address] [place] [address] Performed By: #### 5 7021-8 #### [facility] CLIA [id number] [address] [place] [address] [place] Neutrophils (Bld) [#/Vol] 6.61 10*3/uL Normal 1.45-7.50 [facility] Comment on above: Order Comment: Speci men Type: BLOOD SPECIMEN Ordering Facility: [facility] Address: [address] [place] [address] Performed By: #### 5 7021-8 #### [facility] CLIA [id number] [address] [place] [address] [place] Neutrophils/100 WBC (Bld) 78.3 % Normal [facility] Comment on above: Order Comment: Speci men Type: BLOOD SPECIMEN Ordering Facility: [facility] Address: [address] [place] [address] Performed By: #### 5 7021-8 #### [facility] CLIA [id number] [address] [place] [address] [place] Nucleated RBC (Bld) [#/Vol] 10*3/uL Normal <0.01 [facility] Comment on above: Order Comment: Speci men Type: BLOOD SPECIMEN Ordering Facility: [facility] Address: [address] [place] [address] Performed By: #### 5 7021-8 #### [facility] CLIA [id number] [address] [place] [address] [place] Nucleated RBC/100 WBC (Bld) [Ratio] 0.0 /100 WBC Normal [facility] Comment on above: Order Comment: Speci men Type: BLOOD SPECIMEN Ordering Facility: [facility] Address: [address] [place] [address] Performed By: #### 5 7021-8 #### [facility] CLIA [id number] [address] [place] [address] [place] Platelet mean volume (Bld) [Entitic vol] 9.3 fL Normal 9.0-12.7 [facility] Comment on above: Order Comment: Speci men Type: BLOOD SPECIMEN Ordering Facility: [facility] Address: [address] [place], [place] [address] Performed By: #### 5 7021-8 #### [facility] CLIA [id number] [address] [place] [address] [place] Platelets (Bld) [#/Vol] 201 10*3/uL Normal 150-400 [facility] Comment on above: Order Comment: Speci men Type: BLOOD SPECIMEN Ordering Facility: [facility] Address: [address] [place] [address] Performed By: #### 5 7021-8 #### [facility] CLIA [id number] [address] [place] [address] [place] RBC (Bld) [#/Vol] 4.34 10*6/uL Normal 3.90-5.20 [facility] Comment on above: Order Comment: Speci men Type: BLOOD SPECIMEN Ordering Facility: [facility] Address: [address] [place] [address] Performed By: #### 5 7021-8 #### [facility] CLIA [id number] [address] [place] [address] [place] WBC (Bld) [#/Vol] 8.44 10*3/uL Normal 3.70-11.00 [facility] Comment on above: Order Comment: Speci men Type: BLOOD SPECIMEN Ordering Facility: [facility] Address: [address] [place] [address] Performed By: #### 5 7021-8 #### [facility] CLIA [id number] [address] [place] CNOVSPon 10-15-2024 CNOVSP Visit (SP) Office (HEMAWS) -------- ALFIE HOGAN ([id number]) 1960 F Date Time Provider Department 10/15/24 3:00 PM JOSE DENNISON During your visit today, we recorded the following information about you: Temperature Pulse Blood pressure Weight 97.7 degrees 94/minute 103/58 117.3 kg Height 1.65 m Jose Dennison DO 10/15/2024 3:55 PM Signed Patient referred by Dr. Mariscal for pancytopenia. HPI: The patient is a 63-year-old female with a past medical history as outlined below. CT abdomen pelvis July 2023 demonstrated no evidence of hepatic abnormality. Spleen was noted to be normal size without any cystic or focal masses. Admitted to [facility] in August for hyperglycemia. Was found to be anemic. Iron was 42 mcg/dL. TIBC normal at 436 mcg/dL iron saturation 10% and the ferritin was 27 ng/mL. Most recent CBC from 09/30/2024 demonstrated white count of 6900. The differential revealed an ANC of 5900. Absolute lymphocyte count was 650. Hemoglobin 10.9 g/dL. MCV 90.6. MCH 26.9 MCHC 29.7. The RDW was 13.9. Platelet count 148,000. In [address] panel revealed previous infection. Hepatitis B antigen negative. Hepatitis C antibody negative. HIV nonreactive. Doesn't feel well in general. 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 Diagnosed with GENNARO Was seeing Dr. Padron. Last visit 06/2023. Quit smoking 2008. No alcohol in 3 years. DVT provoked by right ankle fracture sometime 2021. Bone marrow biopsy at ?[facility] 2021. Was started on iron sucrose. Scheduled for two more doses. PAST MEDICAL HISTORY Diagnosis Date Abdominal pain, right lower quadrant Acute gastritis without mention of hemorrhage Acute renal failure 2011 2012 episodes of Cr elevation Anemia Anxiety Arthritis, multiple joint involvement Asthma (HCC) DDD (degenerative disc disease), lumbar Depression with anxiety Diaphragmatic hernia without mention of obstruction or gangrene Dyspepsia and other specified disorders of function of stomach Esophagitis, unspecified Hyperlipidemia 11/28/2011 Hypertension Kidney disease GENNARO (obstructive sleep apnea) on CPAP Other and unspecified ovarian cyst Ovarian cyst Paralysis of diaphragm Phlebitis and thrombophlebitis of unspecified site Pulmonary hypertension (HCC) Tobacco use disorder Urinary calculus, unspecified Renal stones PAST SURGICAL HISTORY Procedure Laterality Date APPENDECTOMY COLONOSCOPY FLX DX W/COLLJ SPEC WHEN PFRMD 09/15/2005 [facility] Colonoscopy EGD TRANSORAL BIOPSY SINGLE/MULTIPLE 08/30/2006 EGD TRANSORAL BIOPSY SINGLE/MULTIPLE 04/11/2011 LAPS SURG CHOLECYSTECTOMY W/CHOLANGIOGRAPHY 08/30/2006 OOPHORECTOMY, PART/TOTAL UNILAT/BILAT 2005 bilateral oophorectomy benign cysts, appendectomy PAST SURGICAL HISTORY OF 2000?, 2009 ruptured disc L3-L4 repair; fusion PAST SURGICAL HISTORY OF tendonectomy right elbow PAST SURGICAL HISTORY OF 2008 left MEAGAN PAST SURGICAL HISTORY OF 12/30/2014 right MEAGAN PAST SURGICAL HISTORY OF 08/09/2023 multi layer fusion L3, 4, 5 RPR UMBILICAL HRNA 5 YRS/> REDUCIBLE grade 6 Hernia repair, umbilical >5yr TONSILLECTOMY HX VAGINAL HYSTERECTOMY UTERUS 250 GM/< adenomysis metFORMIN ER (GLUCOPHAGE XR) 500 mg 24 hr tablet Take 1 tablet by mouth two times a day. ALPRAZolam (XANAX) 0.5 mg tablet Take 0.5 mg by mouth three times a day as needed. MOUNJARO 7.5 mg/0.5 mL pen injector Inject 7.5 mg subcutaneously one time a week. carvedilol (COREG) 3.125 mg tablet Take 3.125 mg by mouth two times a day with meals. rosuvastatin (CRESTOR) 40 mg tablet Take 40 mg by mouth once daily. magnesium oxide (MAG-OX) 400 mg (241.3 mg magnesium) tablet Take 1 tablet by mouth once daily. FLUoxetine (PROZAC) 10 mg capsule Take 40 mg by mouth once daily. docusate sodium (COLACE) 100 mg capsule Take 2 capsules by mouth as needed. prochlorperazine (COMPAZINE) 10 mg tablet Take 1 tablet by mouth every 6 hours as needed for Nausea/Vomiting. mometasone-formoterol (DULERA) 100-5 mcg/actuation inhaler Inhale 2 Puffs as instructed twice daily. pantoprazole DR (PROTONIX) 40 mg tablet Take 40 mg by mouth once daily. albuterol HFA (VENTOLIN HFA) 90 mcg/actuation inhaler Inhale 2 Puffs as instructed every 4 hours as needed for Wheezing/Shortness of Breath. trospium (SANCTURA) 20 mg tablet Take 20 mg by mouth two times a day. temazepam (RESTORIL) 30 mg cap Take 30 mg by mouth at bedtime as needed. traZODone (DESYREL) 150 mg tablet Take 150 mg by mouth daily at bedtime. (Patient not taking: Reported on 10/15/2024) apixaban (ELIQUIS) 5 mg (74 tabs) Take 2 tablets (10 mg) by mouth twice daily for 7 days. Then take 1 tablet (5 mg) by mouth twice daily for 23 days (Patient not taking: Reported on 07/05/2023) QUEtiapine (SEROQUEL) 100 mg tablet 1 tablet daily at bedtime. (Patie (more content not included)... Normal [facility] COPPER BLOODon 10-15-2024 Copper [Mass/Vol] 88 ug/dL Normal 80-155 [facility] Comment on above: Order Comment: Speci men Type: BLOOD SPECIMEN Ordering Facility: [facility] Address: [address] [place] [address] Result Comment: This test was developed, and its performance characteristics determined by the [facility] Department of Pathology and Laboratory Medicine. It has not been cleared or approved by the FDA. The [facility] Department of Pathology and Laboratory Medicine is regulated under CLIA as qualified to perform high-complexity testing. This test is used for clinical purposes. It should not be regarded as investigational or for research. Performed By: #### C OPPER #### [facility] CLIA [id number] [address] [place] [address] [place] Folate SerPl-mCncon 10-16-19 25 Folate [Mass/Vol] 16.3 ng/mL Normal >4.7 [facility] Comment on above: Order Comment: Morenita og Type: BLOOD SPECIMEN Ordering Facility: [facility] Address: [address] [place] [address] Performed By: #### 2 132-9, 2284-8 #### [facility] CLIA [id number] [address] [place] [address] [place] Vit B12 SerPl-ncon 025 Cobalamin (Vitamin B12) [Mass/Vol] 291 pg/mL Normal 232-1245 [facility] Comment on above: Order Comment: Morenita og Type: BLOOD SPECIMEN Ordering Facility: [facility] Address: [address] [place] [address] Performed By: #### 2 132-9, 2284-8 #### [facility] CLIA [id number] [address] [place] [address] [place] Ferritinon 10-01-2024 Ferritin [Mass/Vol] 27 ng/mL Normal 22-378 [facility] Comment on above: Order Comment: ADD O N FERRITIN IBC FROM 09-30-24 PLEASE Performed By: #### L 503.6030, L500.4050, L100.0100, L503.6550, L101.9900, L503.6005 ####[facility] [address] [place], [address] Iron+Iron Binding Capacityon 10-01-2024 Iron [Mass/Vol] 42 ug/dL Low 50-170 [facility] Comment on above: Order Comment: ADD O N FERRITIN IBC FROM 09-30-24 PLEASE Performed By: #### L 503.6030, L500.4050, L100.0100, L503.6550, L101.9900, L503.6005 ####[facility] [address] [place], [address] IRON SATURATION 10.0 Low 13-59 [facility] Comment on above: Order Comment: ADD O N FERRITIN IBC FROM 09-30-24 PLEASE Performed By: #### L 503.6030, L500.4050, L100.0100, L503.6550, L101.9900, L503.6005 ####[facility] [address] [place], [address] TIBC 436 ug/dL Normal 250-450 [facility] Comment on above: Order Comment: ADD O N FERRITIN IBC FROM 09-30-24 PLEASE Performed By: #### L 503.6030, L500.4050, L100.0100, L503.6550, L101.9900, L503.6005 ####[facility] [address] [place], [address] UIBC 394 ug/dL Normal 228-428 [facility] Comment on above: Order Comment: ADD O N FERRITIN IBC FROM 09-30-24 PLEASE Performed By: #### L 503.6030, L500.4050, L100.0100, L503.6550, L101.9900, L503.6005 ####[facility] [address] [place], [address] Absolute lymphocyte countOrd ered By: Junior Salter on 09-30-2024 Lymphocytes Auto (Unsp spec) [#/Vol] 0.65 10*3/uL Low 0.83-4.51 [facility] Anion gap in Serum or Plasma Ordered By: Junior Salter on 09-30-2024 Anion gap [Moles/Vol] 11 mmol/L 5-15 [facility] Automated lymphocyte count a s percentage of total leukocytesOrdered By: Junior Salter on 09-30-2024 Lymphocytes/100 WBC Auto (Unsp spec) 9.4 % Low 19-41 [facility] BUN/creatinine ratioOrdered By: Junior Salter on 09-30-2024 Urea nitrogen/Creatinine [Mass ratio] 14.4 mg/mg 10-20 [facility] Basophil percentageOrdered B y: Junior Salter on 09-30-2024 Basophils/100 WBC (Bld) 0.1 % 0-1 [facility] Bilirubin, totalOrdered By: Junior Salter on 09-30-2024 Bilirubin [Mass/Vol] 0.74 mg/dL 0.00-1.30 [facility] CBC W/Diff, Automatedon 09-03 Absolute Lymph 0.65 X10 3/uL Low 0.83-4.51 [facility] Comment on above: Performed By: #### L 503.6030, L500.4050, L100.0100, L503.6550, L101.9900, L503.6005 ####[facility] [address] [place], [address] Absolute Neut 5.9 X10 3/uL Normal 2.0-7.7 [facility] Comment on above: Performed By: #### L 503.6030, L500.4050, L100.0100, L503.6550, L101.9900, L503.6005 ####[facility] [address] [place], [address] Basophils/100 WBC (Bld) 0.1 % Normal 0-1 [facility] Comment on above: Performed By: #### L 503.6030, L500.4050, L100.0100, L503.6550, L101.9900, L503.6005 ####[facility] [address] [place], [address] Eosinophils/100 WBC (Bld) 0.0 % Normal 0-5 [facility] Comment on above: Performed By: #### L 503.6030, L500.4050, L100.0100, L503.6550, L101.9900, L503.6005 ####[facility] [address] [place], [address] Erythrocyte distribution width (RBC) [Ratio] 13.9 % Normal 11.6-14.6 [facility] Comment on above: Performed By: #### L 503.6030, L500.4050, L100.0100, L503.6550, L101.9900, L503.6005 ####[facility] [address] [place], [address] Hematocrit (Bld) [Volume fraction] 36.7 % Low 37-47 [facility] Comment on above: Performed By: #### L 503.6030, L500.4050, L100.0100, L503.6550, L101.9900, L503.6005 ####[facility] [address] [place], [address] Hemoglobin (Bld) [Mass/Vol] 10.9 g/dL Low 12.0-15.0 [facility] Comment on above: Performed By: #### L 503.6030, L500.4050, L100.0100, L503.6550, L101.9900, L503.6005 ####[facility] [address] [place], [address] IG% 0.400 Normal 0.0-0.9 [facility] Comment on above: Result Comment: IG% - Immature Granulocytes (promyelocytes, myelocytes andmetamyelocytes) > 1% indicates that a LEFT SHIFT is Present. Performed By: #### L 503.6030, L500.4050, L100.0100, L503.6550, L101.9900, L503.6005 ####[facility] [address] [place], [address] Lymphocytes/100 WBC (Bld) 9.4 % Low 19-41 [facility] Comment on above: Performed By: #### L 503.6030, L500.4050, L100.0100, L503.6550, L101.9900, L503.6005 ####[facility] [address] [place], [address] MCH (RBC) [Entitic mass] 26.9 pg Low 27.0-32.0 [facility] Comment on above: Performed By: #### L 503.6030, L500.4050, L100.0100, L503.6550, L101.9900, L503.6005 ####[facility] [address] [place], [address] MCHC (RBC) [Mass/Vol] 29.7 g/dL Low 32-36 [facility] Comment on above: Performed By: #### L 503.6030, L500.4050, L100.0100, L503.6550, L101.9900, L503.6005 ####[facility] [address] [place], [address] MCV (RBC) [Entitic vol] 90.6 fL Normal 81-99 [facility] Comment on above: Performed By: #### L 503.6030, L500.4050, L100.0100, L503.6550, L101.9900, L503.6005 ####[facility] [address] [place], [address] Monocytes/100 WBC (Bld) 4.2 % Normal 0-10 [facility] Comment on above: Performed By: #### L 503.6030, L500.4050, L100.0100, L503.6550, L101.9900, L503.6005 ####[facility] [address] [place], [address] Neutrophils/100 WBC (Bld) 85.9 % High 47-70 [facility] Comment on above: Performed By: #### L 503.6030, L500.4050, L100.0100, L503.6550, L101.9900, L503.6005 ####[facility] [address] [place], [address] Nucleated RBC (Bld) [#/Vol] 0 10*3/uL Normal 0-5 [facility] Comment on above: Performed By: #### L 503.6030, L500.4050, L100.0100, L503.6550, L101.9900, L503.6005 ####[facility] [address] [place], [address] Platelet mean volume (Bld) [Entitic vol] 11.1 fL Normal 6.2-12.0 [facility] Comment on above: Performed By: #### L 503.6030, L500.4050, L100.0100, L503.6550, L101.9900, L503.6005 ####[facility] [address] [place], [address] Platelets (Bld) [#/Vol] 148 10*3/uL Low 150-450 [facility] Comment on above: Performed By: #### L 503.6030, L500.4050, L100.0100, L503.6550, L101.9900, L503.6005 ####[facility] [address] [place], [address] RBC (Bld) [#/Vol] 4.05 10*6/uL Low 4.2-5.4 [facility] Comment on above: Performed By: #### L 503.6030, L500.4050, L100.0100, L503.6550, L101.9900, L503.6005 ####[facility] [address] [place], [address] RDW SD 46.1 fl High 35.1-43.9 [facility] Comment on above: Performed By: #### L 503.6030, L500.4050, L100.0100, L503.6550, L101.9900, L503.6005 ####[facility] [address] [place], [address] WBC (Bld) [#/Vol] 6.9 10*3/uL Normal 4.4-11.0 [facility] Comment on above: Performed By: #### L 503.6030, L500.4050, L100.0100, L503.6550, L101.9900, L503.6005 ####[facility] [address] [place], [address] Carbon dioxide, total [Moles /volume] in Central venous bloodOrdered By: Junior Salter on 09-30-2024 CO2 [Moles/Vol] 28.0 mmol/L 21.0-32.0 [facility] Chest PA and Lateralon 09-30 Chest PA and Lateral Normal [facility] Chloride assayOrdered By: Ug o Salter on 09-30-2024 Chloride [Moles/Vol] 100 mmol/L 98-108 [facility] Comprehensive Metabolic Prof ilon 09-30-2024 Albumin [Mass/Vol] 4.4 g/dL Normal 3.4-4.8 [facility] Comment on above: Performed By: #### L 503.6030, L500.4050, L100.0100, L503.6550, L101.9900, L503.6005 ####[facility] [address] [place], [address] Albumin/Globulin [Mass ratio] 1.9 {ratio} Normal 0.9-2.4 [facility] Comment on above: Performed By: #### L 503.6030, L500.4050, L100.0100, L503.6550, L101.9900, L503.6005 ####[facility] [address] [place], [address] ALK PHOS 93 U/L Normal 35-104 [facility] Comment on above: Performed By: #### L 503.6030, L500.4050, L100.0100, L503.6550, L101.9900, L503.6005 ####[facility] [address] [place], [address] ALT [Catalytic activity/Vol] 22 U/L Normal <=34 [facility] Comment on above: Performed By: #### L 503.6030, L500.4050, L100.0100, L503.6550, L101.9900, L503.6005 ####[facility] [address] [place], [address] AST [Catalytic activity/Vol] 25 U/L Normal <=31 [facility] Comment on above: Result Comment: Hemo lysis present, Results??could be affected.?? Performed By: #### L 503.6030, L500.4050, L100.0100, L503.6550, L101.9900, L503.6005 ####[facility] [address] [place], [address] Bilirubin [Mass/Vol] 0.74 mg/dL Normal 0.00-1.30 [facility] Comment on above: Performed By: #### L 503.6030, L500.4050, L100.0100, L503.6550, L101.9900, L503.6005 ####[facility] [address] [place], [address] BUN/CRE 14.4 RATIO Normal 10-20 [facility] Comment on above: Performed By: #### L 503.6030, L500.4050, L100.0100, L503.6550, L101.9900, L503.6005 ####[facility] [address] [place], [address] Calcium [Mass/Vol] 9.9 mg/dL Normal 7.6-11.0 [facility] Comment on above: Performed By: #### L 503.6030, L500.4050, L100.0100, L503.6550, L101.9900, L503.6005 ####[facility] [address] [place], [address] Chloride [Moles/Vol] 100 mmol/L Normal 98-108 [facility] Comment on above: Performed By: #### L 503.6030, L500.4050, L100.0100, L503.6550, L101.9900, L503.6005 ####[facility] [address] [place], [address] CO2 [Moles/Vol] 28.0 mmol/L Normal 21.0-32.0 [facility] Comment on above: Performed By: #### L 503.6030, L500.4050, L100.0100, L503.6550, L101.9900, L503.6005 ####[facility] [address] [place], [address] Creatinine [Mass/Vol] 1.17 mg/dL Normal 0.70-1.20 [facility] Comment on above: Performed By: #### L 503.6030, L500.4050, L100.0100, L503.6550, L101.9900, L503.6005 ####[facility] [address] [place], [address] GAP 11 Normal 5-15 [facility] Comment on above: Performed By: #### L 503.6030, L500.4050, L100.0100, L503.6550, L101.9900, L503.6005 ####[facility] [address] [place], [address] GFR/1.73 sq M.predicted among non-blacks MDRD (S/P/Bld) [Vol rate/Area] 53 mL/min/{1.73_m2} Low >60 [facility] Comment on above: Result Comment: mL/m in/1.73m2 CKD-EPI Creatinine Equation (2020) Performed By: #### L 503.6030, L500.4050, L100.0100, L503.6550, L101.9900, L503.6005 ####[facility] [address] [place], [address] Globulin (S) [Mass/Vol] 2.3 g/dL Normal 2.2-4.2 [facility] Comment on above: Performed By: #### L 503.6030, L500.4050, L100.0100, L503.6550, L101.9900, L503.6005 ####[facility] [address] [place], [address] Glucose [Mass/Vol] 171 mg/dL High 70-99 [facility] Comment on above: Performed By: #### L 503.6030, L500.4050, L100.0100, L503.6550, L101.9900, L503.6005 ####[facility] [address] [place], [address] Potassium [Moles/Vol] 3.7 mmol/L Normal 3.3-5.1 [facility] Comment on above: Result Comment: Hemo lysis present, Results??could be affected.?? Performed By: #### L 503.6030, L500.4050, L100.0100, L503.6550, L101.9900, L503.6005 ####[facility] [address] [place], [address] Sodium [Moles/Vol] 139 mmol/L Normal 133-145 [facility] Comment on above: Performed By: #### L 503.6030, L500.4050, L100.0100, L503.6550, L101.9900, L503.6005 ####[facility] [address] [place], [address] T PROT 6.6 g/dL Normal 5.9-8.4 [facility] Comment on above: Performed By: #### L 503.6030, L500.4050, L100.0100, L503.6550, L101.9900, L503.6005 ####[facility] [address] [place], [place], [address] Urea nitrogen [Mass/Vol] 17 mg/dL Normal 4-19 [facility] Comment on above: Performed By: #### L 503.6030, L500.4050, L100.0100, L503.6550, L101.9900, L503.6005 ####[facility] [address] [place], [address] Emergency Department Summary on 09-30-2024 Emergency Department Summary Normal [facility] Eosinophil percentageOrdered By: Junior Salter on 09-30-2024 Eosinophils/100 WBC (Bld) 0.0 % 0-5 [facility] Erythrocyte Sed Rateon 09-30 SED RATE < 1 Normal 0-30 [facility] Comment on above: Performed By: #### L 503.6030, L500.4050, L100.0100, L503.6550, L101.9900, L503.6005 ####[facility] [address] [place], [address] Erythrocyte distribution wid th ratioOrdered By: Junior Salter on 09-30-2024 Erythrocyte distribution width (RBC) [Ratio] 13.9 % 11.6-14.6 [facility] Erythrocyte distribution wid th standard deviationOrdered By: Juniorunique Garayo on 09-30-2024 Erythrocyte distribution width (RBC) [Ratio] 46.1 fl High 35.1-43.9 [facility] Erythrocyte sedimentation ra teOrdered By: Juniorunique Salter on 09-30-2024 ESR (Bld) [Velocity] mm/h 0-30 [facility] Glomerular filtration rate ( GFR) estimation/1.73 sq m using serum, plasma, or whole bOrdered By: Junior Salter on 09-30-2024 GFR/1.73 sq M.predicted among non-blacks MDRD (S/P/Bld) [Vol rate/Area] 53 mL/min/{1.73_m2} Low >60 [facility] Hematocrit Auto (Bld) [Volum e fraction]Ordered By: [facility] on 09-[facility]-2024 Hematocrit (Bld) [Volume fraction] 36.7 % Low 37-47 [facility] Hemoglobin measurementOrdere d By: Junior Salter on 09-30-2024 Hemoglobin (Bld) [Mass/Vol] 10.9 g/dL Low 12.0-15.0 [facility] Immature granulocytes/100 WB C Auto (Bld)Ordered By: [facility] on 09-30-2024 Immature granulocytes/100 WBC (Bld) 0.400 % 0.0-0.9 [facility] Iron measurement (mass/mass) Ordered By: [facility] on 09-30-2024 Iron (Unsp spec) [Mass/Mass] 42 ug/dL Low 50-170 [facility] Lactic Acidon 09-30-2024 Lactate [Moles/Vol] 2.3 mmol/L Invalid Interpretation Code 0.0-2.0 [facility] Comment on above: Order Comment: Y Result Comment: Crit ical Result(s) Called at: 2012 by: LETICIA ROTH??Results read back by same. Performed By: #### L 503.6030, L500.4050, L100.0100, L503.6550, L101.9900, L503.6005 ####[facility] [address] [place], [address] MCV (mean corpuscular volume ) determinationOrdered By: Junior Salter on 09-30-2024 MCV (RBC) [Entitic vol] 90.6 fL 81-99 [facility] Mean corpuscular hemoglobin (MCH) determinationOrdered By: Juniorunique Salter on 09-30-2024 MCH (RBC) [Entitic mass] 26.9 pg Low 27.0-32.0 [facility] Monocyte percentageOrdered B y: Juniorunique Salter on 09-30-2024 Monocytes/100 WBC (Bld) 4.2 % 0-10 [facility] Neutrophil percentageOrdered By: Juniorunique Salter on 09-30-2024 Neutrophils/100 WBC (Bld) 85.9 % High 47-70 [facility] No Panel InformationOrdered By: Juniorunique Salter on 09-30-2024 25 U/L <32 [facility] 394 ug/dL 228-428 [facility] Platelet countOrdered By: Lefty Salter on 09-30-2024 Platelets (Bld) [#/Vol] 148 10*3/uL Low 150-450 [facility] Potassium measurement (mass/ volume)Ordered By: Juniorunique Salter on 09-30-2024 Potassium (Unsp spec) [Mass/Vol] 3.7 mmol/L 3.3-5.1 [facility] RBC Auto (Bld) [#/Vol]Ordere d By: Juniorunique Salter on 09-30-2024 RBC (Bld) [#/Vol] 4.05 10*6/uL Low 4.2-5.4 [facility] Serum creatinine measurement (mass/volume)Ordered By: Junior Salter on 09-30-2024 Creatinine [Mass/Vol] 1.17 mg/dL 0.70-1.20 [facility] Serum globulin measurementOr dered By: Junior Salter on 09-30-2024 Globulin (S) [Mass/Vol] 2.3 g/dL 2.2-4.2 [facility] Serum glucose measurement (m ass/volume)Ordered By: Junior Salter on 09-30-2024 Glucose [Mass/Vol] 171 mg/dL High 70-99 [facility] Serum or plasma alanine guerrero otransferase (ALT) measurementOrdered By: Junior Salter on 09-30-2024 ALT [Catalytic activity/Vol] 22 U/L <35 [facility] Serum or plasma albumin marisela urement (mass/volume)Ordered By: Junior Salter on 09-30-2024 Albumin [Mass/Vol] 4.4 g/dL 3.4-4.8 [facility] Serum or plasma albumin/glob ulin mass ratioOrdered By: Junior Salter on 09-30-2024 Albumin/Globulin [Mass ratio] 1.9 {ratio} 0.9-2.4 [facility] Serum or plasma alkaline shaheen sphatase measurementOrdered By: Junior Salter 09-30-2024 ALP [Catalytic activity/Vol] 93 U/L 35-104 [facility] Serum or plasma calcium marisela urement (mass/volume)Ordered By: Junior Salter 09-30-2024 Calcium [Mass/Vol] 9.9 mg/dL 7.6-11.0 [facility] Serum or plasma ferritin yulia surement (mass/volume)Ordered By: Junior Salter 09-30-2024 Ferritin [Mass/Vol] 27 ng/mL 22-378 [facility] Serum or plasma iron saturat ion measurement (mass fraction)Ordered By: Junior Salter 09-30-2024 Iron saturation [Mass fraction] 10.0 % Low 13-59 [facility] Serum or plasma urea nitroge n measurement (mass/volume)Ordered By: Junior Salter 09-30-2024 Urea nitrogen [Mass/Vol] 17 mg/dL 4-19 [facility] Sodium levelOrdered By: Junior Salter 09-30-2024 Sodium [Moles/Vol] 139 mmol/L 133-145 [facility] Total proteinOrdered By: Junior Salter on 09-30-2024 Protein [Mass/Vol] 6.6 g/dL 5.9-8.4 [facility] White blood cell (WBC) count Ordered By: Junior Salter on 09-30-2024 WBC (Bld) [#/Vol] 6.9 10*3/uL 4.4-11.0 [facility] HH, Hemoglobin AND Hematocri ton 08-19-2024 Hematocrit (Bld) [Volume fraction] 33.0 % Low [address] [place] [address] Comment on above: Order Comment: Order Date: 08/19/24Order Info: [id number] - HH Performed By: #### L 100.0600 ####[facility] [address] [place], [address] Hemoglobin (Bld) [Mass/Vol] 9.7 g/dL Low 12.0-15.0 [facility] Comment on above: Order Comment: Order Date: 08/19/24Order Info: [id number] - HH Performed By: #### L 100.0600 ####[facility] [address] [place], [address] Hematocrit Auto (Bld) [Volum e fraction]Ordered By: Corin Mariscal on 08-19-2024 Hematocrit (Bld) [Volume fraction] 33.0 % Low [address] [place] [address] Automated blood hematocrit (percentage) 33.0 % Low [address] [place] [address] Hemoglobin measurementOrdere d By: Corin Mariscal on 08-19-2024 Hemoglobin (Bld) [Mass/Vol] 9.7 g/dL Low 12.0-15.0 [facility] Hemoglobin measurement 9.7 g/dL Low 12.0-15.0 [facility] Culture, Blood (WB)on 2024 CUB Blood cultures x2, f rom two different sites No growth in 5 days. Normal [facility] Comment on above: Performed By: #### M 200.1000 ####[facility] [address] [place], [address] CUB Blood cultures x2, f rom two different sites No growth in 5 days. Normal [facility] Comment on above: Performed By: #### L 100.0100, L503.6005, L300.4310, M200.1000, L300.3900, L500.4050 ####[facility] [address] [place], [address] Absolute lymphocyte countOrd ered By: Beck Lee on 08-13-2024 Lymphocytes Auto (Unsp spec) [#/Vol] 0.80 10*3/uL Low 0.83-4.51 [facility] Absolute neutrophil countOrd ered By: Beck Lee on 08-13-2024 Absolute neutrophil count 2.1 X10^3/uL 2.0-7.7 [facility] Anion gap [Moles/Vol]Ordered By: Beck Lee on 08-13-2024 Anion gap in Serum or Plasma 6 - [facility] Anion gap in Serum or Plasma Ordered By: Beck Lee on 08-13-2024 Anion gap [Moles/Vol] 6 mmol/L 10-16 [facility] Automated lymphocyte count a s percentage of total leukocytesOrdered By: Beck Lee on 08-13-2024 Lymphocytes/100 WBC Auto (Unsp spec) 24.4 % - [facility] BUN/creatinine ratioOrdered By: Beck Lee on 08-13-2024 Urea nitrogen/Creatinine [Mass ratio] 19.7 mg/mg - [facility] BUN/creatinine ratio 19.7 RATIO - [facility] Basic Metabolic Profile (BMP )on 08-13-2024 BUN/CRE 19.7 RATIO Normal - [facility] Comment on above: Performed By: #### L 100.0100, L500.2500 ####[facility] [address] [facility] [address] Calcium [Mass/Vol] 8.9 mg/dL Normal 7.6-11.0 [facility] Comment on above: Performed By: #### L 100.0100, L500.2500 ####[facility] [address] [place], [address] Chloride [Moles/Vol] 100 mmol/L Normal 98-108 [facility] Comment on above: Performed By: #### L 100.0100, L500.2500 ####[facility] [address] [place], [address] CO2 [Moles/Vol] 34.4 mmol/L High 21.0-32.0 [facility] Comment on above: Performed By: #### L 100.0100, L500.2500 ####[facility] [address] [place], [address] Creatinine [Mass/Vol] 0.87 mg/dL Normal 0.70-1.20 [facility] Comment on above: Performed By: #### L 100.0100, L500.2500 ####[facility] [address] [place], [address] ECRCL 94.60 ml/min Normal 50-250 [facility] Comment on above: Performed By: #### L 100.0100, L500.2500 ####[facility] [address] [place], [address] GAP 6 Normal 5-15 [facility] Comment on above: Performed By: #### L 100.0100, L500.2500 ####[facility] [address] [place], [address] GFR/1.73 sq M.predicted among non-blacks MDRD (S/P/Bld) [Vol rate/Area] 76 mL/min/{1.73_m2} Normal >60 [facility] Comment on above: Result Comment: mL/m in/1.73m2 CKD-EPI Creatinine Equation (2020) Performed By: #### L 100.0100, L500.2500 ####[facility] [address] [place], [address] Glucose [Mass/Vol] 234 mg/dL High 70-99 [facility] Comment on above: Performed By: #### L 100.0100, L500.2500 ####[facility] [address] [place], [address] Potassium [Moles/Vol] 3.7 mmol/L Normal 3.3-5.1 [facility] Comment on above: Performed By: #### L 100.0100, L500.2500 ####[facility] [address] [place], [address] Sodium [Moles/Vol] 140 mmol/L Normal 133-145 [facility] Comment on above: Performed By: #### L 100.0100, L500.2500 ####[facility] [address] [place], [address] Urea nitrogen [Mass/Vol] 17 mg/dL Normal 4-19 [facility] Comment on above: Performed By: #### L 100.0100, L500.2500 ####[facility] [address] [place], [address] Basophil percentageOrdered B y: Beck Lee on 08-13-2024 Basophils/100 WBC (Bld) 0.3 % 0-1 [facility] Basophil percentage 0.3 % 0-1 [facility] Bedside Glucoseon 08-13-2024 FINGERSTICK GLU 294 mg/dL High 74-106 [facility] Comment on above: Result Comment: HAM GEMENT OF PATIENT CARE PER NURSING PROTOCOL Performed By: #### L 501.080 ####[facility] [address] [place], [address] FINGERSTICK GLU 251 mg/dL High 74-106 [facility] Comment on above: Result Comment: HAM GEMENT OF PATIENT CARE PER NURSING PROTOCOL Performed By: #### L 501.080 ####[facility] [address] [place], [address] CBC W/Diff, Automatedon 08-02 Absolute Lymph 0.80 X10 3/uL Low 0.83-4.51 [facility] Comment on above: Performed By: #### L 100.0100, L500.2500 ####[facility] [address] [place], [address] Absolute Neut 2.1 X10 3/uL Normal 2.0-7.7 [facility] Comment on above: Performed By: #### L 100.0100, L500.2500 ####[facility] [address] [place], [address] Basophils/100 WBC (Bld) 0.3 % Normal 0-1 [facility] Comment on above: Performed By: #### L 100.0100, L500.2500 ####[facility] [address] [place], [address] Eosinophils/100 WBC (Bld) 1.2 % Normal 0-5 [facility] Comment on above: Performed By: #### L 100.0100, L500.2500 ####[facility] [address] [place], [address] Erythrocyte distribution width (RBC) [Ratio] 15.3 % High 11.6-14.6 [facility] Comment on above: Performed By: #### L 100.0100, L500.2500 ####[facility] [address] [place], [address] Hematocrit (Bld) [Volume fraction] 28.7 % Low 37-47 [facility] Comment on above: Performed By: #### L 100.0100, L500.2500 ####[facility] [address] [place], [address] Hemoglobin (Bld) [Mass/Vol] 8.2 g/dL Low 12.0-15.0 [facility] Comment on above: Performed By: #### L 100.0100, L500.2500 ####[facility] [address] [place], [address] IG% 0.300 Normal 0.0-0.9 [facility] Comment on above: Result Comment: IG% - Immature Granulocytes (promyelocytes, myelocytes andmetamyelocytes) > 1% indicates that a LEFT SHIFT is Present. Performed By: #### L 100.0100, L500.2500 ####[facility] [address] [place], [address] Lymphocytes/100 WBC (Bld) 24.4 % Normal 19-41 [facility] Comment on above: Performed By: #### L 100.0100, L500.2500 ####[facility] [address] [place], [address] MCH (RBC) [Entitic mass] 27.5 pg Normal 27.0-32.0 [facility] Comment on above: Performed By: #### L 100.0100, L500.2500 ####[facility] [address] [place], [address] MCHC (RBC) [Mass/Vol] 28.6 g/dL Low 32-36 [facility] Comment on above: Performed By: #### L 100.0100, L500.2500 ####[facility] [address] [place], [address] MCV (RBC) [Entitic vol] 96.3 fL Normal 81-99 [facility] Comment on above: Performed By: #### L 100.0100, L500.2500 ####[facility] [address] [place], [address] Monocytes/100 WBC (Bld) 8.8 % Normal 0-10 [facility] Comment on above: Performed By: #### L 100.0100, L500.2500 ####[facility] [address] [place], [address] Neutrophils/100 WBC (Bld) 65.0 % Normal 47-70 [facility] Comment on above: Performed By: #### L 100.0100, L500.2500 ####[facility] [address] [place], [address] Nucleated RBC (Bld) [#/Vol] 0 10*3/uL Normal 0-5 [facility] Comment on above: Performed By: #### L 100.0100, L500.2500 ####[facility] [address] [place], [address] Platelet mean volume (Bld) [Entitic vol] 10.1 fL Normal 6.2-12.0 [facility] Comment on above: Performed By: #### L 100.0100, L500.2500 ####[facility] [address] [place], [address] Platelets (Bld) [#/Vol] 131 10*3/uL Low 150-450 [facility] Comment on above: Performed By: #### L 100.0100, L500.2500 ####[facility] [address] [place], [address] RBC (Bld) [#/Vol] 2.98 10*6/uL Low 4.2-5.4 [facility] Comment on above: Performed By: #### L 100.0100, L500.2500 ####[facility] [address] [place], [address] RDW SD 53.9 fl High 35.1-43.9 [facility] Comment on above: Performed By: #### L 100.0100, L500.2500 ####[facility] [address] [place], [address] WBC (Bld) [#/Vol] 3.3 10*3/uL Low 4.4-11.0 [facility] Comment on above: Performed By: #### L 100.0100, L500.2500 ####[facility] [address] [place], [address] Calcium [Mass/Vol]Ordered By : Beck Lee on 08-13-2024 Serum or plasma calcium measurement (mass/volume) 8.9 mg/dL 7.6-11.0 [facility] Carbon dioxide, total [Moles /volume] in Central venous bloodOrdered By: Beck Lee on 08-13-2024 CO2 [Moles/Vol] 34.4 mmol/L High 21.0-32.0 [facility] Carbon dioxide, total [Moles/volume] in Central venous blood 34.4 mmol/L High 21.0-32.0 [facility] Chloride assayOrdered By: Arias Lee on 08-13-2024 Chloride [Moles/Vol] 100 mmol/L 98-108 [facility] Chloride assay 100 mmol/L 98-108 [facility] Creatinine [Mass/Vol]Ordered By: Beck Lee on 08-13-2024 Serum creatinine measurement (mass/volume) 0.87 mg/dL 0.70-1.20 [facility] Discharge Instructionon 08-02 Discharge Instruction Normal [facility] Eosinophil percentageOrdered By: Beck Lee on 08-13-2024 Eosinophils/100 WBC (Bld) 1.2 % 0-5 [facility] Eosinophil percentage 1.2 % 0-5 [facility] Erythrocyte distribution wid th (RBC) [Entitic vol]Ordered By: Beck Lee on 08-13-2024 Erythrocyte distribution width standard deviation 53.9 fl High 35.1-43.9 [facility] Erythrocyte distribution wid th (RBC) [Ratio]Ordered By: Beck Lee on 08-13-2024 Erythrocyte distribution width ratio 15.3 % High 11.6-14.6 [facility] Erythrocyte distribution wid th ratioOrdered By: Beck Lee on 08-13-2024 Erythrocyte distribution width (RBC) [Ratio] 15.3 % High 11.6-14.6 [facility] Erythrocyte distribution wid th standard deviationOrdered By: Beck Lee on 08-13-2024 Erythrocyte distribution width (RBC) [Ratio] 53.9 fl High 35.1-43.9 [facility] Estimation of creatinine delvis aranceOrdered By: Beck Lee on 08-13-2024 Estimation of creatinine clearance 94.60 ml/min 50-250 [facility] GFR/1.73 sq M.predicted madeline g non-blacks MDRD (S/P/Bld) [Vol rate/Area]Ordered By: Beck Lee on 08-13-2024 Glomerular filtration rate (GFR) estimation/1.73 sq m using serum, plasma, or whole b 76 >60 [facility] Glomerular filtration rate ( GFR) estimation/1.73 sq m using serum, plasma, or whole bOrdered By: Beck Lee on 08-13-2024 GFR/1.73 sq M.predicted among non-blacks MDRD (S/P/Bld) [Vol rate/Area] 76 mL/min/{1.73_m2} >60 [facility] Glucose [Mass/Vol]Ordered By : Beck Lee on 08-13-2024 Serum glucose measurement (mass/volume) 234 mg/dL High 70-99 [facility] Glucose measurement at bedsi deOrdered By: Thong Sultana on 08-13-2024 Glucose [Mass/Vol] 294 mg/dL High 74-106 [facility] Glucose measurement at bedside 294 mg/dL High 74-106 [facility] HH, Hemoglobin AND Hematocri ton 08-13-2024 Hematocrit (Bld) [Volume fraction] 29.9 % Low 3747 [facility] Comment on above: Performed By: #### L 100.0600 ####[facility] [address] [place], [place], [phone] Hemoglobin (Bld) [Mass/Vol] 8.5 g/dL Low 12.0-15.0 [facility] Comment on above: Performed By: #### L 100.0600 ####[facility] [address] [place], [address] Hematocrit Auto (Bld) [Volum e fraction]Ordered By: Thong Sultana on 08-13-2024 Hematocrit (Bld) [Volume fraction] 29.9 % Low [address] [place] [address] Automated blood hematocrit (percentage) 29.9 % Low [address] [place] [address] Hemoglobin measurementOrdere d By: Thong Sultana on 08-13-2024 Hemoglobin (Bld) [Mass/Vol] 8.5 g/dL Low 12.0-15.0 [facility] Hemoglobin measurement 8.5 g/dL Low 12.0-15.0 [facility] Immature granulocytes/100 WB C Auto (Bld)Ordered By: Beck Lee on 08-13-2024 Immature granulocytes/100 WBC (Bld) 0.300 % 0.0-0.9 [facility] Automated immature granulocyte percentage 0.300 % 0.0-0.9 [facility] Lymphocytes Auto (Unsp spec) [#/Vol]Ordered By: Beck Lee on 08-13-2024 Absolute lymphocyte count 0.80 X10^3/uL Low 0.83-4.51 [facility] Lymphocytes/100 WBC Auto (Un sp spec)Ordered By: Beck Lee on 08-13-2024 Automated lymphocyte count as percentage of total leukocytes 24.4 % 19-41 [facility] MCV (RBC) [Entitic vol]Order ed By: Beck Lee on 08-13-2024 MCV (mean corpuscular volume) determination 96.3 fL 81-99 [facility] MCV (mean corpuscular volume ) determinationOrdered By: Beck Lee on 08-13-2024 MCV (RBC) [Entitic vol] 96.3 fL 81-99 [facility] Mean corpuscular hemoglobin (MCH) determinationOrdered By: Beck Lee on 08-13-2024 MCH (RBC) [Entitic mass] 27.5 pg 27.0-32.0 [facility] Mean corpuscular hemoglobin (MCH) determination 27.5 pg 27.0-32.0 [facility] Mean corpuscular hemoglobin concentration (MCHC) determinationOrdered By: Beck Lee on 08-13-2024 Mean corpuscular hemoglobin concentration (MCHC) determination 28.6 g/dL Low 32-36 [facility] Mean platelet volume determi nationOrdered By: Beck Lee on 08-13-2024 Mean platelet volume determination 10.1 fl 6.2-12.0 [facility] Monocyte percentageOrdered B y: Beck Lee on 08-13-2024 Monocytes/100 WBC (Bld) 8.8 % 0-10 [facility] Monocyte percentage 8.8 % 0-10 [facility] Neutrophil percentageOrdered By: Beck Lee on 08-13-2024 Neutrophils/100 WBC (Bld) 65.0 % 47-70 [facility] Neutrophil percentage 65.0 % 47-70 [facility] Nucleated red blood cell per centageOrdered By: Beck Lee on 08-13-2024 Nucleated red blood cell percentage 0 % 0-5 [facility] Platelet countOrdered By: Arias Lee on 08-13-2024 Platelets (Bld) [#/Vol] 131 10*3/uL Low 150-450 [facility] Platelet count 131 K/mm3 Low 150-450 [facility] Potassium (Unsp spec) [Mass/ Vol]Ordered By: Beck Lee on 08-13-2024 Potassium measurement (mass/volume) 3.7 mmol/L 3.3-5.1 [facility] Potassium measurement (mass/ volume)Ordered By: Beck Lee on 08-13-2024 Potassium (Unsp spec) [Mass/Vol] 3.7 mmol/L 3.3-5.1 [facility] RBC Auto (Bld) [#/Vol]Ordere d By: Beck Lee on 08-13-2024 RBC (Bld) [#/Vol] 2.98 10*6/uL Low 4.2-5.4 [facility] Automated blood erythrocyte count 2.98 M/mm3 Low 4.2-5.4 [facility] Serum creatinine measurement (mass/volume)Ordered By: Beck Lee on 08-13-2024 Creatinine [Mass/Vol] 0.87 mg/dL 0.70-1.20 [facility] Serum glucose measurement (m ass/volume)Ordered By: Beck Lee on 08-13-2024 Glucose [Mass/Vol] 234 mg/dL High 70-99 [facility] Serum or plasma calcium marisela urement (mass/volume)Ordered By: Beck Lee on 08-13-2024 Calcium [Mass/Vol] 8.9 mg/dL 7.6-11.0 [facility] Serum or plasma urea nitroge n measurement (mass/volume)Ordered By: Beck Lee on 08-13-2024 Urea nitrogen [Mass/Vol] 17 mg/dL 09-20 [facility] Sodium levelOrdered By: Miugel Lee on 08-13-2024 Sodium [Moles/Vol] 140 mmol/L 133-145 [facility] Sodium level 140 mmol/L 133-145 [facility] Urea nitrogen [Mass/Vol]Orde red By: Beck Lee on 08-13-2024 Serum or plasma urea nitrogen measurement (mass/volume) 17 mg/dL 09-20 [facility] White blood cell (WBC) count Ordered By: Beck Lee on 08-13-2024 WBC (Bld) [#/Vol] 3.3 10*3/uL Low 4.4-11.0 [facility] White blood cell (WBC) count 3.3 K/mm3 Low 4.4-11.0 [facility] Basic Metabolic Profile (BMP )on 08-12-2024 BUN/CRE 15.2 RATIO Normal 10-20 [facility] Comment on above: Performed By: #### L 500.2500, L100.0100 ####[facility] [address] [place], [address] Calcium [Mass/Vol] 8.8 mg/dL Normal 7.6-11.0 [facility] Comment on above: Performed By: #### L 500.2500, L100.0100 ####[facility] [address] [place], [address] Chloride [Moles/Vol] 102 mmol/L Normal 98-108 [facility] Comment on above: Performed By: #### L 500.2500, L100.0100 ####[facility] [address] [place], [address] CO2 [Moles/Vol] 29.8 mmol/L Normal 21.0-32.0 [facility] Comment on above: Performed By: #### L 500.2500, L100.0100 ####[facility] [address] [place], [address] Creatinine [Mass/Vol] 0.78 mg/dL Normal 0.70-1.20 [facility] Comment on above: Performed By: #### L 500.2500, L100.0100 ####[facility] [address] [place], [address] ECRCL 104.34 ml/min Normal 50-250 [facility] Comment on above: Performed By: #### L 500.2500, L100.0100 ####[facility] [address] [place], [address] GAP 8 Normal 5-15 [facility] Comment on above: Performed By: #### L 500.2500, L100.0100 ####[facility] [address] [place], [address] GFR/1.73 sq M.predicted among non-blacks MDRD (S/P/Bld) [Vol rate/Area] 86 mL/min/{1.73_m2} Normal >60 [facility] Comment on above: Result Comment: mL/m in/1.73m2 CKD-EPI Creatinine Equation (2020) Performed By: #### L 500.2500, L100.0100 ####[facility] [address] [place], [address] Glucose [Mass/Vol] 288 mg/dL High 70-99 [facility] Comment on above: Performed By: #### L 500.2499, L100.0100 ####[facility] [address] [place], [address] Potassium [Moles/Vol] 4.3 mmol/L Normal 3.3-5.1 [facility] Comment on above: Performed By: #### L 500.2500, L100.0100 ####[facility] [address] [place], [address] Sodium [Moles/Vol] 139 mmol/L Normal 133-145 [facility] Comment on above: Performed By: #### L 500.2500, L100.0100 ####[facility] [address] [place], [address] Urea nitrogen [Mass/Vol] 12 mg/dL Normal 4-19 [facility] Comment on above: Performed By: #### L 500.2500, L100.0100 ####[facility] [address] [place], [address] Bedside Glucoseon 08-12-2024 FINGERSTICK GLU 304 mg/dL High 74-106 [facility] Comment on above: Result Comment: HAM GEMENT OF PATIENT CARE PER NURSING PROTOCOL Performed By: #### L 501.080 ####[facility] [address] [place], [address] FINGERSTICK GLU 277 mg/dL High 74-106 [facility] Comment on above: Result Comment: HAM GEMENT OF PATIENT CARE PER NURSING PROTOCOL Performed By: #### L 501.080 ####[facility] [address] [place], [address] FINGERSTICK GLU 241 mg/dL High 74-106 [facility] Comment on above: Result Comment: HAM GEMENT OF PATIENT CARE PER NURSING PROTOCOL Performed By: #### L 501.080 ####[facility] [address] [place], [address] FINGERSTICK GLU 266 mg/dL High 74-106 [facility] Comment on above: Result Comment: HAM GEMENT OF PATIENT CARE PER NURSING PROTOCOL Performed By: #### L 501.080 ####[facility] [address] [place], [address] FINGERSTICK GLU 286 mg/dL High 74-106 [facility] Comment on above: Result Comment: HAM GEMENT OF PATIENT CARE PER NURSING PROTOCOL Performed By: #### L 501.080 ####[facility] [address] [place], [address] FINGERSTICK GLU 300 mg/dL High 74-106 [facility] Comment on above: Result Comment: HAM GEMENT OF PATIENT CARE PER NURSING PROTOCOL Performed By: #### L 501.080 ####[facility] [address] [place], [address] FINGERSTICK GLU 340 mg/dL High 74-106 [facility] Comment on above: Result Comment: HAM GEMENT OF PATIENT CARE PER NURSING PROTOCOL Performed By: #### L 501.080 ####[facility] [address] [place], [address] CBC W/Diff, Automatedon 08-02 BASO STIPPLING 1+ Normal [facility] Comment on above: Performed By: #### L 500.2500, L100.0100 ####[facility] [address] [place], [address] OVALOCYTE 1+ Normal [facility] Comment on above: Performed By: #### L 500.2500, L100.0100 ####[facility] [address] [place], [address] PLT EST SLT DEC Normal [facility] Comment on above: Performed By: #### L 500.2500, L100.0100 ####[facility] [address] [place], [address] Erythrocyte basophilic stipp ling detectionOrdered By: Beck Lee on 08-12-2024 Basophilic stippling LM Ql (Bld) 1+ [facility] Erythrocyte basophilic stippling detection 1+ [facility] Ovalocyte detectionOrdered B y: Beck Lee on 08-12-2024 Ovalocytes LM Ql (Bld) 1+ [facility] Platelet estimateOrdered By: Beck Lee on 08-12-2024 Platelets LM Ql (Bld) SLT DEC ADEQ [facility] Platelets LM Ql (Bld)Ordered By: Beck Lee on 08-12-2024 Platelet estimate SLT DEC ADEQ [facility] Basic Metabolic Profile (BMP )on 08-11-2024 BUN/CRE 13.3 RATIO Normal 10-20 [facility] Comment on above: Performed By: #### L 501.2300, L500.2500, L500.4100, L100.0100, L501.5200 ####[facility] [address] [place], [address] Calcium [Mass/Vol] 9.1 mg/dL Normal 7.6-11.0 [facility] Comment on above: Performed By: #### L 501.2300, L500.2500, L500.4100, L100.0100, L501.5200 ####[facility] [address] [place], [address] Chloride [Moles/Vol] 102 mmol/L Normal 98-108 [facility] Comment on above: Performed By: #### L 501.2300, L500.2500, L500.4100, L100.0100, L501.5200 ####[facility] [address] [place], [address] CO2 [Moles/Vol] 23.1 mmol/L Normal 21.0-32.0 [facility] Comment on above: Performed By: #### L 501.2300, L500.2500, L500.4100, L100.0100, L501.5200 ####[facility] [address] [place], [address] Creatinine [Mass/Vol] 0.91 mg/dL Normal 0.70-1.20 [facility] Comment on above: Performed By: #### L 501.2300, L500.2500, L500.4100, L100.0100, L501.5200 ####[facility] [address] [place], [address] ECRCL 86.96 ml/min Normal 50-250 [facility] Comment on above: Performed By: #### L 501.2300, L500.2500, L500.4100, L100.0100, L501.5200 ####[facility] [address] [place], [address] GAP 15 Normal 5-15 [facility] Comment on above: Performed By: #### L 501.2300, L500.2500, L500.4100, L100.0100, L501.5200 ####[facility] [address] [place], [address] GFR/1.73 sq M.predicted among non-blacks MDRD (S/P/Bld) [Vol rate/Area] 71 mL/min/{1.73_m2} Normal >60 [facility] Comment on above: Result Comment: mL/m in/1.73m2 CKD-EPI Creatinine Equation (2020) Performed By: #### L 501.2300, L500.2500, L500.4100, L100.0100, L501.5200 ####[facility] [address] [place], [address] Glucose [Mass/Vol] 241 mg/dL High 70-99 [facility] Comment on above: Performed By: #### L 501.2300, L500.2500, L500.4100, L100.0100, L501.5200 ####[facility] [address] [place], [address] Potassium [Moles/Vol] 4.1 mmol/L Normal 3.3-5.1 [facility] Comment on above: Result Comment: Hemo lysis present, Results??could be affected.?? Performed By: #### L 501.2300, L500.2500, L500.4100, L100.0100, L501.5200 ####[facility] [address] [place], [address] Sodium [Moles/Vol] 139 mmol/L Normal 133-145 [facility] Comment on above: Performed By: #### L 501.2300, L500.2500, L500.4100, L100.0100, L501.5200 ####[facility] [address] [place], [address] Urea nitrogen [Mass/Vol] 12 mg/dL Normal 4-19 [facility] Comment on above: Performed By: #### L 501.2300, L500.2500, L500.4100, L100.0100, L501.5200 ####[facility] [address] [place], [address] Bedside Glucoseon 08-11-2024 FINGERSTICK GLU 322 mg/dL High [facility]106 [facility] Comment on above: Result Comment: HAM GEMENT OF PATIENT CARE PER NURSING PROTOCOL Performed By: #### L 501.080 ####[facility] [address] [place], [address] FINGERSTICK GLU 223 mg/dL High [address] [place] [address] Comment on above: Result Comment: HAM GEMENT OF PATIENT CARE PER NURSING PROTOCOL Performed By: #### L 501.080 ####[facility] [address] [place], [address] FINGERSTICK GLU 273 mg/dL High [address] [place] [address] Comment on above: Result Comment: HAM GEMENT OF PATIENT CARE PER NURSING PROTOCOL Performed By: #### L 501.080 ####[facility] [address] [place], [address] FINGERSTICK GLU 233 mg/dL High -106 [facility] Comment on above: Result Comment: HAM GEMENT OF PATIENT CARE PER NURSING PROTOCOL Performed By: #### L 501.080 ####[facility] [address] [place], [address] Brain W/WO Contraston 2024 Brain W/WO Contrast Normal [facility] CBC W/Diff, Automatedon 03-1 0-2025 Absolute Lymph 0.82 X10 3/uL Low 0.83-4.51 [facility] Comment on above: Performed By: #### L 501.2300, L500.2500, L500.4100, L100.0100, L501.5200 ####[facility] [address] [place], [address] Absolute Neut 2.6 X10 3/uL Normal 2.0-7.7 [facility] Comment on above: Performed By: #### L 501.2300, L500.2500, L500.4100, L100.0100, L501.5200 ####[facility] [address] [place], [address] Basophils/100 WBC (Bld) 0.3 % Normal 0-1 [facility] Comment on above: Performed By: #### L 501.2300, L500.2500, L500.4100, L100.0100, L501.5200 ####[facility] [address] [place], [address] Eosinophils/100 WBC (Bld) 1.1 % Normal 0-5 [facility] Comment on above: Performed By: #### L 501.2300, L500.2500, L500.4100, L100.0100, L501.5200 ####[facility] [address] [place], [address] Erythrocyte distribution width (RBC) [Ratio] 15.1 % High 11.6-14.6 [facility] Comment on above: Performed By: #### L 501.2300, L500.2500, L500.4100, L100.0100, L501.5200 ####[facility] [address] [place], [address] Hematocrit (Bld) [Volume fraction] 36.1 % Low 37-47 [facility] Comment on above: Performed By: #### L 501.2300, L500.2500, L500.4100, L100.0100, L501.5200 ####[facility] [address] [place], [address] Hemoglobin (Bld) [Mass/Vol] 10.4 g/dL Low 12.0-15.0 [facility] Comment on above: Performed By: #### L 501.2300, L500.2500, L500.4100, L100.0100, L501.5200 ####[facility] [address] [place], [address] IG% 0.500 Normal 0.0-0.9 [facility] Comment on above: Result Comment: IG% - Immature Granulocytes (promyelocytes, myelocytes andmetamyelocytes) > 1% indicates that a LEFT SHIFT is Present. Performed By: #### L 501.2300, L500.2500, L500.4100, L100.0100, L501.5200 ####[facility] [address] [place], [address] Lymphocytes/100 WBC (Bld) 21.8 % Normal 19-41 [facility] Comment on above: Performed By: #### L 501.2300, L500.2500, L500.4100, L100.0100, L501.5200 ####[facility] [address] [place], [address] MCH (RBC) [Entitic mass] 27.4 pg Normal 27.0-32.0 [facility] Comment on above: Performed By: #### L 501.2300, L500.2500, L500.4100, L100.0100, L501.5200 ####[facility] [address] [place], [address] MCHC (RBC) [Mass/Vol] 28.8 g/dL Low 32-36 [facility] Comment on above: Performed By: #### L 501.2300, L500.2500, L500.4100, L100.0100, L501.5200 ####[facility] [address] [place], [address] MCV (RBC) [Entitic vol] 95.0 fL Normal 81-99 [facility] Comment on above: Performed By: #### L 501.2300, L500.2500, L500.4100, L100.0100, L501.5200 ####[facility] [address] [place], [address] Monocytes/100 WBC (Bld) 6.6 % Normal 0-10 [facility] Comment on above: Performed By: #### L 501.2300, L500.2500, L500.4100, L100.0100, L501.5200 ####[facility] [address] [place], [address] Neutrophils/100 WBC (Bld) 69.7 % Normal 47-70 [facility] Comment on above: Performed By: #### L 501.2300, L500.2500, L500.4100, L100.0100, L501.5200 ####[facility] [address] [place], [address] Nucleated RBC (Bld) [#/Vol] 0 10*3/uL Normal 0-5 [facility] Comment on above: Performed By: #### L 501.2300, L500.2500, L500.4100, L100.0100, L501.5200 ####[facility] [address] [place], [address] Platelet mean volume (Bld) [Entitic vol] 9.9 fL Normal 6.2-12.0 [facility] Comment on above: Performed By: #### L 501.2300, L500.2500, L500.4100, L100.0100, L501.5200 ####[facility] [address] [place], [address] Platelets (Bld) [#/Vol] 155 10*3/uL Normal 150-450 [facility] Comment on above: Performed By: #### L 501.2300, L500.2500, L500.4100, L100.0100, L501.5200 ####[facility] [address] [place], [address] RBC (Bld) [#/Vol] 3.80 10*6/uL Low 4.2-5.4 [facility] Comment on above: Performed By: #### L 501.2300, L500.2500, L500.4100, L100.0100, L501.5200 ####[facility] [address] [place], [address] RDW SD 52.4 fl High 35.1-43.9 [facility] Comment on above: Performed By: #### L 501.2300, L500.2500, L500.4100, L100.0100, L501.5200 ####[facility] [address] [place], [address] WBC (Bld) [#/Vol] 3.8 10*3/uL Low 4.4-11.0 [facility] Comment on above: Performed By: #### L 501.2300, L500.2500, L500.4100, L100.0100, L501.5200 ####[facility] [address] [place], [address] Calculated very low density lipoprotein (VLDL) cholesterol measurementOrdered By: Beck Lee on 08-11-2024 Calculated very low density lipoprotein (VLDL) cholesterol measurement 36 mg/dL 5-40 [facility] Calculated very low density lipoprotein (VLDL) cholesterol measurement 36 mg/dL -40 [facility] Cholesterol [Mass/Vol]Ordere d By: Beck Lee on 08-11-2024 Serum or plasma cholesterol measurement (mass/volume) 151 mg/dL <201 [facility] Cholesterol in HDL [Mass/Vol ]Ordered By: Beck Lee on 08-11-2024 Serum or plasma cholesterol in HDL measurement (mass/volume) 69 mg/dL >40 [facility] LDL calc ser/plasOrdered By: Beck Lee on 08-11-2024 Cholesterol in LDL [Mass/Vol] 46 mg/dL [facility] LDL calc ser/plas 46 mg/dL [facility] Lipid Profileon 08-11-2024 CHOL:HDL 2.19 Normal [facility] Comment on above: Performed By: #### L 501.2300, L500.2500, L500.4100, L100.0100, L501.5200 ####[facility] [address] [place], [place], [phone]([phone] Cholesterol [Mass/Vol] 151 mg/dL Normal <=200 [facility] Comment on above: Result Comment: Chol esterol level, Desirable <200 mg/dLBorderline high cholesterol 200-239 mg/dLHigh cholesterol >=240 mg/dLRecommendations of the NCEP Adult Treatment Panel for thefollowing risk-cutoff thresholds for the [place] Americanpulation. Performed By: #### L 501.2300, L500.2500, L500.4100, L100.0100, L501.5200 ####[facility] [address] [place], [place], [address](970) Cholesterol in HDL [Mass/Vol] 69 mg/dL Normal [facility] Comment on above: Result Comment: Sofy onal Cholesterol Education Program (NCEP) guidelines:<40 mg/dL: Low HDL-cholesterol (major risk factor for CHD)>= 60 mg/dL: High HDL-cholesterol (negative risk factor forCHD)HDL-cholesterol is affected by a number of factors, e.g.smoking, exercise, hormones, sex and age. Performed By: #### L 501.2300, L500.2500, L500.4100, L100.0100, L501.5200 ####[facility] [address] [place], [address] Cholesterol in LDL [Mass/Vol] 46 mg/dL Normal [facility] Comment on above: Result Comment: Bord kcjfkr=866-858 mg/dL Higher Jtqr=219 mg/dL or greater Performed By: #### L 501.2300, L500.2500, L500.4100, L100.0100, L501.5200 ####[facility] [address] [place], [address] Cholesterol in VLDL [Mass/Vol] 36 mg/dL Normal 5-40 [facility] Comment on above: Performed By: #### L 501.2300, L500.2500, L500.4100, L100.0100, L501.5200 ####[facility] [address] [place], [address] Triglyceride [Mass/Vol] 179 mg/dL Normal [facility] Comment on above: Result Comment: The drugs N-Acetylcysteine and Metamizole may falselydepress this assay.Normal range: <150 mg/dLBorderline High: 150-199 mg/dLHigh: 200-499 mg/dLVery High: >500 mg/dL Performed By: #### L 501.2300, L500.2500, L500.4100, L100.0100, L501.5200 ####[facility] [address] [place], [address] MR/CON.PCM.NEon 08-11-2024 MR/CON.PCM.NE Normal [facility] Magnesiumon 08-11-2024 Magnesium [Mass/Vol] 2.2 mg/dL Normal 1.5-2.2 [facility] Comment on above: Performed By: #### L 501.2300, L500.2500, L500.4100, L100.0100, L501.5200 ####[facility] [address] [place], [address] Magnesium (Unsp spec) [Mass/ Vol]Ordered By: Beck Lee on 08-11-2024 Magnesium measurement (mass/volume) 2.2 mg/dL 1.5-2.2 [facility] Magnesium measurement (mass/ volume)Ordered By: Beck Lee on 08-11-2024 Magnesium (Unsp spec) [Mass/Vol] 2.2 mg/dL 1.5-2.2 [facility] Phosphoruson 08-11-2024 Phosphate [Mass/Vol] 2.6 mg/dL Low 2.7-4.5 [facility] Comment on above: Performed By: #### L 501.2300, L500.2500, L500.4100, L100.0100, L501.5200 ####[facility] [address] [place], [address] Screening total cholesterol/ high density lipoprotein (HDL) cholesterol ratioOrdered By: Beck Lee on 08-11-2024 Screening total cholesterol/high density lipoprotein (HDL) cholesterol ratio 2.19 [facility] Serum or plasma cholesterol in HDL measurement (mass/volume)Ordered By: Beck Lee on 08-11-2024 Cholesterol in HDL [Mass/Vol] 69 mg/dL >40 [facility] Serum or plasma cholesterol measurement (mass/volume)Ordered By: Beck Lee on 08-11-2024 Cholesterol [Mass/Vol] 151 mg/dL <201 [facility] Serum phosphorus measurement Ordered By: Beck Lee on 08-11-2024 Serum phosphorus measurement 2.6 mg/dL Low 2.7-4.5 [facility] Triglycerides measurementOrd ered By: Beck Lee on 08-11-2024 Triglycerides measurement 179 mg/dL <199 [facility] ALP [Catalytic activity/Vol] Ordered By: Mckenzie Austin on 08-10-2024 Serum or plasma alkaline phosphatase measurement 83 U/L 35-104 [facility] ALT [Catalytic activity/Vol] Ordered By: Mckenzie Austin on 08-10-2024 Serum or plasma alanine aminotransferase (ALT) measurement 12 U/L <35 [facility] Albumin [Mass/Vol]Ordered By : Mckenzie Austin on 08-10-2024 Serum or plasma albumin measurement (mass/volume) 3.8 g/dL 3.4-4.8 [facility] Albumin/Globulin [Mass ratio ]Ordered By: Mckenzie Austin on 08-10-2024 Serum or plasma albumin/globulin mass ratio 2.9 RATIO High 0.9-2.4 [facility] Bedside Glucoseon 08-10-2024 FINGERSTICK GLU 264 mg/dL High 74-106 [facility] Comment on above: Result Comment: HAM GEMENT OF PATIENT CARE PER NURSING PROTOCOL Performed By: #### L 501.080 ####[facility] [address] [place], [address] FINGERSTICK GLU 286 mg/dL High 74-106 [facility] Comment on above: Result Comment: HAM GEMENT OF PATIENT CARE PER NURSING PROTOCOL Performed By: #### L 501.080 ####[facility] [address] [place], [address] FINGERSTICK GLU 241 mg/dL High 74-106 [facility] Comment on above: Result Comment: HAM GEMENT OF PATIENT CARE PER NURSING PROTOCOL Performed By: #### L 501.080 ####[facility] [address] [place], [address] FINGERSTICK GLU 104 mg/dL Normal -106 [facility] Comment on above: Result Comment: HAM GEMENT OF PATIENT CARE PER NURSING PROTOCOL Performed By: #### L 501.080 ####[facility] [address] [place], [address] FINGERSTICK GLU 109 mg/dL High 74-106 [facility] Comment on above: Result Comment: HAM GEMENT OF PATIENT CARE PER NURSING PROTOCOL Performed By: #### L 501.080 ####[facility] [address] [place], [address] Bilirubin, totalOrdered By: Mckenzie Austin on 08-10-2024 Bilirubin [Mass/Vol] 0.50 mg/dL 0.00-1.30 [facility] Bilirubin, total 0.50 mg/dL 0.00-1.30 [facility] CBC W/Diff, Automatedon 03-0 9-202 Absolute Lymph 1.48 X10 3/uL Normal 0.83-4.51 [facility] Comment on above: Performed By: #### L 500.4050, L100.0100 ####[facility] [address] [place], [address] Absolute Neut 2.1 X10 3/uL Normal 2.0-7.7 [facility] Comment on above: Performed By: #### L 500.4050, L100.0100 ####[facility] [address] [place], [address] Basophils/100 WBC (Bld) 0.5 % Normal 0-1 [facility] Comment on above: Performed By: #### L 500.4050, L100.0100 ####[facility] [address] [place], [address] Eosinophils/100 WBC (Bld) 2.0 % Normal 0-5 [facility] Comment on above: Performed By: #### L 500.4050, L100.0100 ####[facility] [address] [place], [address] Erythrocyte distribution width (RBC) [Ratio] 14.6 % Normal 11.6-14.6 [facility] Comment on above: Performed By: #### L 500.4050, L100.0100 ####[facility] [address] [place], [address] Hematocrit (Bld) [Volume fraction] 30.9 % Low 37-47 [facility] Comment on above: Performed By: #### L 500.4050, L100.0100 ####[facility] [address] [place], [address] Hemoglobin (Bld) [Mass/Vol] 9.1 g/dL Low 12.0-15.0 [facility] Comment on above: Performed By: #### L 500.4050, L100.0100 ####[facility] [address] [place], [address] IG% 0.200 Normal 0.0-0.9 [facility] Comment on above: Result Comment: IG% - Immature Granulocytes (promyelocytes, myelocytes andmetamyelocytes) > 1% indicates that a LEFT SHIFT is Present. Performed By: #### L 500.4050, L100.0100 ####[facility] [address] [place], [address] Lymphocytes/100 WBC (Bld) 36.5 % Normal 19-41 [facility] Comment on above: Performed By: #### L 500.4050, L100.0100 ####[facility] [address] [place], [address] MCH (RBC) [Entitic mass] 27.5 pg Normal 27.0-32.0 [facility] Comment on above: Performed By: #### L 500.4050, L100.0100 ####[facility] [address] [place], [address] MCHC (RBC) [Mass/Vol] 29.4 g/dL Low 32-36 [facility] Comment on above: Performed By: #### L 500.4050, L100.0100 ####[facility] [address] [place], [address] MCV (RBC) [Entitic vol] 93.4 fL Normal 81-99 [facility] Comment on above: Performed By: #### L 500.4050, L100.0100 ####[facility] [address] [place], [address] Monocytes/100 WBC (Bld) 10.1 % High 0-10 [facility] Comment on above: Performed By: #### L 500.4050, L100.0100 ####[facility] [address] [place], [address] Neutrophils/100 WBC (Bld) 50.7 % Normal 47-70 [facility] Comment on above: Performed By: #### L 500.4050, L100.0100 ####[facility] [address] [place], [address] Nucleated RBC (Bld) [#/Vol] 0 10*3/uL Normal 0-5 [facility] Comment on above: Performed By: #### L 500.4050, L100.0100 ####[facility] [address] [place], [address] Platelet mean volume (Bld) [Entitic vol] 10.0 fL Normal 6.2-12.0 [facility] Comment on above: Performed By: #### L 500.4050, L100.0100 ####[facility] [address] [place], [address] Platelets (Bld) [#/Vol] 141 10*3/uL Low 150-450 [facility] Comment on above: Performed By: #### L 500.4050, L100.0100 ####[facility] [address] [place], [address] RBC (Bld) [#/Vol] 3.31 10*6/uL Low 4.2-5.4 [facility] Comment on above: Performed By: #### L 500.4050, L100.0100 ####[facility] [address] [place], [address] RDW SD 49.8 fl High 35.1-43.9 [facility] Comment on above: Performed By: #### L 500.4050, L100.0100 ####[facility] [address] [place], [address] WBC (Bld) [#/Vol] 4.1 10*3/uL Low 4.4-11.0 [facility] Comment on above: Performed By: #### L 500.4050, L100.0100 ####[facility] [address] [place], [address] Comprehensive Metabolic Prof ilon 08-10-2024 Albumin [Mass/Vol] 3.8 g/dL Normal 3.4-4.8 [facility] Comment on above: Performed By: #### L 500.4050, L100.0100 ####[facility] [address] [place], [address] Albumin/Globulin [Mass ratio] 2.9 {ratio} High 0.9-2.4 [facility] Comment on above: Performed By: #### L 500.4050, L100.0100 ####[facility] [address] [place], [address] ALK PHOS 83 U/L Normal 35-104 [facility] Comment on above: Performed By: #### L 500.4050, L100.0100 ####[facility] [address] [place], [address] ALT [Catalytic activity/Vol] 12 U/L Normal <=34 [facility] Comment on above: Performed By: #### L 500.4050, L100.0100 ####[facility] [address] [place], [address] AST [Catalytic activity/Vol] 14 U/L Normal <=31 [facility] Comment on above: Performed By: #### L 500.4050, L100.0100 ####[facility] [address] [place], [address] Bilirubin [Mass/Vol] 0.50 mg/dL Normal 0.00-1.30 [facility] Comment on above: Performed By: #### L 500.4050, L100.0100 ####[facility] [address] [place], [address] BUN/CRE 13.4 RATIO Normal 10-20 [facility] Comment on above: Performed By: #### L 500.4050, L100.0100 ####[facility] [address] [place], [address] Calcium [Mass/Vol] 9.1 mg/dL Normal 7.6-11.0 [facility] Comment on above: Performed By: #### L 500.4050, L100.0100 ####[facility] [address] [place], [address] Chloride [Moles/Vol] 103 mmol/L Normal 98-108 [facility] Comment on above: Performed By: #### L 500.4050, L100.0100 ####[facility] [address] [place], [address] CO2 [Moles/Vol] 32.1 mmol/L High 21.0-32.0 [facility] Comment on above: Performed By: #### L 500.4050, L100.0100 ####[facility] [address] [place], [address] Creatinine [Mass/Vol] 0.85 mg/dL Normal 0.70-1.20 [facility] Comment on above: Performed By: #### L 500.4050, L100.0100 ####[facility] [address] [place], [address] ECRCL 93.10 ml/min Normal 50-250 [facility] Comment on above: Performed By: #### L 500.4050, L100.0100 ####[facility] [address] [place], [address] GAP 7 Normal 5-15 [facility] Comment on above: Performed By: #### L 500.4050, L100.0100 ####[facility] [address] [place], [address] GFR/1.73 sq M.predicted among non-blacks MDRD (S/P/Bld) [Vol rate/Area] 78 mL/min/{1.73_m2} Normal >60 [facility] Comment on above: Result Comment: mL/m in/1.73m2 CKD-EPI Creatinine Equation (2020) Performed By: #### L 500.4050, L100.0100 ####[facility] [address] [place], [address] Globulin (S) [Mass/Vol] 1.3 g/dL Low 2.2-4.2 [facility] Comment on above: Performed By: #### L 500.4050, L100.0100 ####[facility] [address] [place], [address] Glucose [Mass/Vol] 146 mg/dL High 70-99 [facility] Comment on above: Performed By: #### L 500.4050, L100.0100 ####[facility] [address] [place], [address] Potassium [Moles/Vol] 4.2 mmol/L Normal 3.3-5.1 [facility] Comment on above: Performed By: #### L 500.4050, L100.0100 ####[facility] [address] [place], [address] Sodium [Moles/Vol] 142 mmol/L Normal 133-145 [facility] Comment on above: Performed By: #### L 500.4050, L100.0100 ####[facility] [address] [place], [address] T PROT 5.1 g/dL Low 5.9-8.4 [facility] Comment on above: Performed By: #### L 500.4050, L100.0100 ####[facility] [address] [place], [address] Urea nitrogen [Mass/Vol] 11 mg/dL Normal 4-19 [facility] Comment on above: Performed By: #### L 500.4050, L100.0100 ####[facility] [address] [place], [address] Hemoglobin A1con 08-10-2024 HbA1c (Bld) [Mass fraction] 8.9 % Normal <=5.6 [facility] Comment on above: Order Comment: Comme nts: add to ED labs Performed By: #### L 501.9985 ####[facility] [address] [place], [address] No Panel InformationOrdered By: Mckenzie Geovanna on 08-10-2024 14 U/L <32 [facility] RESPIRATORY PANEL MOLECULARo n 08-10-2024 RP PANEL Normal [facility] Comment on above: Performed By: #### M 100.638 ####[facility] [address] [place], [address] Serum globulin measurementOr dered By: Mckenzie Austin on 08-10-2024 Globulin (S) [Mass/Vol] 1.3 g/dL Low 2.2-4.2 [facility] Serum globulin measurement 1.3 g/dL Low 2.2-4.2 [facility] Serum or plasma alanine guerrero otransferase (ALT) measurementOrdered By: Mckenzie Austin on 08-10-2024 ALT [Catalytic activity/Vol] 12 U/L <35 [facility] Serum or plasma albumin marisela urement (mass/volume)Ordered By: Mckenzie Austin on 08-10-2024 Albumin [Mass/Vol] 3.8 g/dL 3.4-4.8 [facility] Serum or plasma albumin/glob ulin mass ratioOrdered By: Mckenzie Austin on 08-10-2024 Albumin/Globulin [Mass ratio] 2.9 {ratio} High 0.9-2.4 [facility] Serum or plasma alkaline shaheen sphatase measurementOrdered By: Mckenzie Austin on 08-10-2024 ALP [Catalytic activity/Vol] 83 U/L 35-104 [facility] Total proteinOrdered By: Henrik washington Geovanna on 08-10-2024 Protein [Mass/Vol] 5.1 g/dL Low 5.9-8.4 [facility] Total protein 5.1 g/dL Low 5.9-8.4 [facility] Urine Cultureon 08-10-2024 URC Culture exhibits no growth. Normal [facility] Comment on above: Performed By: #### M 100.2200, L400.0001 ####[facility] [address] [place], [place], [address] Absolute neutrophil countOrd ered By: Airam Rocha on 08-09-2024 Neutrophils (Bld) [#/Vol] 2.3 10*3/uL 2.0-7.7 [facility] Activated partial thrombopla stin time (aPTT) in platelet poor plasma by coagulation aOrdered By: Airam Rocha on 08-09-2024 aPTT Coag (PPP) [Time] 22.6 s Low 24.1-36.2 [facility] Anion gap in Serum or Plasma Ordered By: Airam Rocha on 08-09-2024 Anion gap [Moles/Vol] 7 mmol/L 5-15 [facility] BUN/creatinine ratioOrdered By: Airam Rocha on 08-09-2024 Urea nitrogen/Creatinine [Mass ratio] 13.3 mg/mg 10-20 [facility] Basophil percentageOrdered B y: Airam Rocha on 08-09-2024 Basophils/100 WBC (Bld) 0.3 % 0-1 [facility] Bedside Glucoseon 08-09-2024 FINGERSTICK GLU 376 mg/dL High 74-106 [facility] Comment on above: Result Comment: HAM PINEDA OF PATIENT CARE PER NURSING PROTOCOL Performed By: #### L 501.080 ####[facility] [address] [place], [place], [id number] FINGERSTICK GLU 415 mg/dL High 74-106 [facility] Comment on above: Result Comment: HAM PINEDA OF PATIENT CARE PER NURSING PROTOCOL Performed By: #### L 501.080 ####[facility] [address] [place], [address] Bilirubin Test strip Ql (U)O rdered By: Airam Rocha on 08-09-2024 Bilirubin Ql (U) Negative Negative [facility] Bilirubin, totalOrdered By: Airam Rocha on 08-09-2024 Bilirubin [Mass/Vol] 0.67 mg/dL 0.00-1.30 [facility] Blood cultureOrdered By: Abbey Rocha on 08-09-2024 Bacteria identified Cx Nom (Bld) No growth in 5 days. [facility] Blood culture No growth in 5 days. [facility] Bacteria identified Cx Nom (Bld) No growth in 5 days. [facility] Blood culture No growth in 5 days. [facility] CBC W/Diff, Automatedon 03-0 Absolute Lymph 0.91 X10 3/uL Normal 0.83-4.51 [facility] Comment on above: Performed By: #### L 100.0100, L503.6005, L300.4310, M200.1000, L300.3900, L500.4050 ####[facility] [address] [place], [address] Absolute Neut 2.3 X10 3/uL Normal 2.0-7.7 [facility] Comment on above: Performed By: #### L 100.0100, L503.6005, L300.4310, M200.1000, L300.3900, L500.4050 ####[facility] [address] [place], [address] Basophils/100 WBC (Bld) 0.3 % Normal 0-1 [facility] Comment on above: Performed By: #### L 100.0100, L503.6005, L300.4310, M200.1000, L300.3900, L500.4050 ####[facility] [address] [place], [address] Eosinophils/100 WBC (Bld) 1.1 % Normal 0-5 [facility] Comment on above: Performed By: #### L 100.0100, L503.6005, L300.4310, M200.1000, L300.3900, L500.4050 ####[facility] [address] [place], [address] Erythrocyte distribution width (RBC) [Ratio] 14.9 % High 11.6-14.6 [facility] Comment on above: Performed By: #### L 100.0100, L503.6005, L300.4310, M200.1000, L300.3900, L500.4050 ####[facility] [address] [place], [address] Hematocrit (Bld) [Volume fraction] 30.3 % Low 37-47 [facility] Comment on above: Performed By: #### L 100.0100, L503.6005, L300.4310, M200.1000, L300.3900, L500.4050 ####[facility] [address] [place], [address] Hemoglobin (Bld) [Mass/Vol] 9.0 g/dL Low 12.0-15.0 [facility] Comment on above: Performed By: #### L 100.0100, L503.6005, L300.4310, M200.1000, L300.3900, L500.4050 ####[facility] [address] [place], [address] IG% 0.600 Normal 0.0-0.9 [facility] Comment on above: Result Comment: IG% - Immature Granulocytes (promyelocytes, myelocytes andmetamyelocytes) > 1% indicates that a LEFT SHIFT is Present. Performed By: #### L 100.0100, L503.6005, L300.4310, M200.1000, L300.3900, L500.4050 ####[facility] [address] [place], [address] Lymphocytes/100 WBC (Bld) 25.7 % Normal 19-41 [facility] Comment on above: Performed By: #### L 100.0100, L503.6005, L300.4310, M200.1000, L300.3900, L500.4050 ####[facility] [address] [place], [address] MCH (RBC) [Entitic mass] 27.3 pg Normal 27.0-32.0 [facility] Comment on above: Performed By: #### L 100.0100, L503.6005, L300.4310, M200.1000, L300.3900, L500.4050 ####[facility] [address] [place], [address] MCHC (RBC) [Mass/Vol] 29.7 g/dL Low 32-36 [facility] Comment on above: Performed By: #### L 100.0100, L503.6005, L300.4310, M200.1000, L300.3900, L500.4050 ####[facility] [address] [place], [address] MCV (RBC) [Entitic vol] 91.8 fL Normal 81-99 [facility] Comment on above: Performed By: #### L 100.0100, L503.6005, L300.4310, M200.1000, L300.3900, L500.4050 ####[facility] [address] [place], [address] Monocytes/100 WBC (Bld) 7.9 % Normal 0-10 [facility] Comment on above: Performed By: #### L 100.0100, L503.6005, L300.4310, M200.1000, L300.3900, L500.4050 ####[facility] [address] [place], [address] Neutrophils/100 WBC (Bld) 64.4 % Normal 47-70 [facility] Comment on above: Performed By: #### L 100.0100, L503.6005, L300.4310, M200.1000, L300.3900, L500.4050 ####[facility] [address] [place], [address] Nucleated RBC (Bld) [#/Vol] 0 10*3/uL Normal 0-5 [facility] Comment on above: Performed By: #### L 100.0100, L503.6005, L300.4310, M200.1000, L300.3900, L500.4050 ####[facility] [address] [place], [address] Platelet mean volume (Bld) [Entitic vol] 10.4 fL Normal 6.2-12.0 [facility] Comment on above: Performed By: #### L 100.0100, L503.6005, L300.4310, M200.1000, L300.3900, L500.4050 ####[facility] [address] [place], [address] Platelets (Bld) [#/Vol] 149 10*3/uL Low 150-450 [facility] Comment on above: Performed By: #### L 100.0100, L503.6005, L300.4310, M200.1000, L300.3900, L500.4050 ####[facility] [address] [place], [address] RBC (Bld) [#/Vol] 3.30 10*6/uL Low 4.2-5.4 [facility] Comment on above: Performed By: #### L 100.0100, L503.6005, L300.4310, M200.1000, L300.3900, L500.4050 ####[facility] [address] [place], [address] RDW SD 49.4 fl High 35.1-43.9 [facility] Comment on above: Performed By: #### L 100.0100, L503.6005, L300.4310, M200.1000, L300.3900, L500.4050 ####[facility] [address] [place], [address] WBC (Bld) [#/Vol] 3.5 10*3/uL Low 4.4-11.0 [facility] Comment on above: Performed By: #### L 100.0100, L503.6005, L300.4310, M200.1000, L300.3900, L500.4050 ####[facility] [address] [place], [address] Carbon dioxide, total [Moles /volume] in Central venous bloodOrdered By: Airam Rocha on 08-09-2024 CO2 [Moles/Vol] 33.7 mmol/L High 21.0-32.0 [facility] Chest PA and Lateralon 08-09 Chest PA and Lateral Normal [facility] Chloride assayOrdered By: Olivia Rocha on 08-09-2024 Chloride [Moles/Vol] 97 mmol/L Low 98-108 [facility] Clarity (U)Ordered By: Airam Rocha on 08-09-2024 Urine clarity Clear Clear [facility] Color (U)Ordered By: Airam huber on 08-09-2024 Urine color determination Yellow Yellow [facility] Comprehensive Metabolic Prof ilon 08-09-2024 Albumin [Mass/Vol] 3.9 g/dL Normal 3.4-4.8 [facility] Comment on above: Performed By: #### L 100.0100, L503.6005, L300.4310, M200.1000, L300.3900, L500.4050 ####[facility] [address] [place], [address] Albumin/Globulin [Mass ratio] 2.1 {ratio} Normal 0.9-2.4 [facility] Comment on above: Performed By: #### L 100.0100, L503.6005, L300.4310, M200.1000, L300.3900, L500.4050 ####[facility] [address] [place], [address] ALK PHOS 88 U/L Normal 35-104 [facility] Comment on above: Performed By: #### L 100.0100, L503.6005, L300.4310, M200.1000, L300.3900, L500.4050 ####[facility] [address] [place], [address] ALT [Catalytic activity/Vol] 12 U/L Normal <=34 [facility] Comment on above: Performed By: #### L 100.0100, L503.6005, L300.4310, M200.1000, L300.3900, L500.4050 ####[facility] [address] [place], [address] AST [Catalytic activity/Vol] 10 U/L Normal <=31 [facility] Comment on above: Performed By: #### L 100.0100, L503.6005, L300.4310, M200.1000, L300.3900, L500.4050 ####[facility] [address] [place], [address] Bilirubin [Mass/Vol] 0.67 mg/dL Normal 0.00-1.30 [facility] Comment on above: Performed By: #### L 100.0100, L503.6005, L300.4310, M200.1000, L300.3900, L500.4050 ####[facility] [address] [place], [address] BUN/CRE 13.3 RATIO Normal 10-20 [facility] Comment on above: Performed By: #### L 100.0100, L503.6005, L300.4310, M200.1000, L300.3900, L500.4050 ####[facility] [address] [place], [address] Calcium [Mass/Vol] 9.5 mg/dL Normal 7.6-11.0 [facility] Comment on above: Performed By: #### L 100.0100, L503.6005, L300.4310, M200.1000, L300.3900, L500.4050 ####[facility] [address] [place], [address] Chloride [Moles/Vol] 97 mmol/L Low 98-108 [facility] Comment on above: Performed By: #### L 100.0100, L503.6005, L300.4310, M200.1000, L300.3900, L500.4050 ####[facility] [address] [place], [address] CO2 [Moles/Vol] 33.7 mmol/L High 21.0-32.0 [facility] Comment on above: Performed By: #### L 100.0100, L503.6005, L300.4310, M200.1000, L300.3900, L500.4050 ####[facility] [address] [place], [address] Creatinine [Mass/Vol] 0.91 mg/dL Normal 0.70-1.20 [facility] Comment on above: Performed By: #### L 100.0100, L503.6005, L300.4310, M200.1000, L300.3900, L500.4050 ####[facility] [address] [place], [address] ECRCL 82.86 ml/min Normal 50-250 [facility] Comment on above: Performed By: #### L 100.0100, L503.6005, L300.4310, M200.1000, L300.3900, L500.4050 ####[facility] [address] [place], [address] GAP 7 Normal 5-15 [facility] Comment on above: Performed By: #### L 100.0100, L503.6005, L300.4310, M200.1000, L300.3900, L500.4050 ####[facility] [address] [place], [address] GFR/1.73 sq M.predicted among non-blacks MDRD (S/P/Bld) [Vol rate/Area] 71 mL/min/{1.73_m2} Normal >60 [facility] Comment on above: Result Comment: mL/m in/1.73m2 CKD-EPI Creatinine Equation (2020) Performed By: #### L 100.0100, L503.6005, L300.4310, M200.1000, L300.3900, L500.4050 ####[facility] [address] [place], [address] Globulin (S) [Mass/Vol] 1.8 g/dL Low 2.2-4.2 [facility] Comment on above: Performed By: #### L 100.0100, L503.6005, L300.4310, M200.1000, L300.3900, L500.4050 ####[facility] [address] [place], [address] Glucose [Mass/Vol] 560 mg/dL Invalid Interpretation Code 70-99 [facility] Comment on above: Result Comment: Crit ical Result(s) Called ACOLE at: 1954 by:HONORIO??Results read back by same. Performed By: #### L 100.0100, L503.6005, L300.4310, M200.1000, L300.3900, L500.4050 ####[facility] [address] [place], [address] Potassium [Moles/Vol] 4.3 mmol/L Normal 3.3-5.1 [facility] Comment on above: Performed By: #### L 100.0100, L503.6005, L300.4310, M200.1000, L300.3900, L500.4050 ####[facility] [address] [place], [address] Sodium [Moles/Vol] 138 mmol/L Normal 133-145 [facility] Comment on above: Performed By: #### L 100.0100, L503.6005, L300.4310, M200.1000, L300.3900, L500.4050 ####[facility] [address] [place], [address] T PROT 5.7 g/dL Low 5.9-8.4 [facility] Comment on above: Performed By: #### L 100.0100, L503.6005, L300.4310, M200.1000, L300.3900, L500.4050 ####[facility] [address] [place], [address] Urea nitrogen [Mass/Vol] 12 mg/dL Normal 4-19 [facility] Comment on above: Performed By: #### L 100.0100, L503.6005, L300.4310, M200.1000, L300.3900, L500.4050 ####[facility] [address] [place], [address] Emergency Department Summary on 08-09-2024 Emergency Department Summary Normal [facility] Eosinophil percentageOrdered By: Airam oRcha on 08-09-2024 Eosinophils/100 WBC (Bld) 1.1 % 0-5 [facility] Epithelial cells.squamous LM Ql (Urine sed)Ordered By: Airam Rocha on 08-09-2024 Epithelial cells.squamous LM.HPF (Urine sed) [#/Area] 0 /[HPF] 5-10 [facility] Erythrocyte distribution wid th ratioOrdered By: Airam Rocha on 08-09-2024 Erythrocyte distribution width (RBC) [Ratio] 14.9 % High 11.6-14.6 [facility] Erythrocyte distribution wid th standard deviationOrdered By: Airam Rocha on 08-09-2024 Erythrocyte distribution width (RBC) [Entitic vol] 49.4 fL High 35.1-43.9 [facility] Estimation of creatinine delvis aranceOrdered By: Airam Rocha on 08-09-2024 Estimated Creatinine Clearance Calc 82.86 ml/min 50-250 [facility] GFR/1.73 sq M.predicted madeline g non-blacks MDRD (S/P/Bld) [Vol rate/Area]Ordered By: Airam Rocha on 08-09-2024 Estimated GFR (MDRD) Non-Af Amer 71 >60 [facility] Comment on above: mL/min/1.73m2 CKD-EP I Creatinine Equation (2020) Glucose Ql (U)Ordered By: Olivia Rocha on 08-09-2024 Glucose (U) [Mass/Vol] 1000 mg/dL High Normal [facility] Urine glucose detection 1000 mg/dl High Normal [facility] Glucose measurement at bedsi deOrdered By: Mckenzie Austin on 08-09-2024 Bedside Glucose (Misc Panel) 415 mg/dL High 74-106 [facility] Comment on above: MANAGEMENT OF PATIEN T CARE PER NURSING PROTOCOL H AND P Exam - Hospitaliston 08-09-2024 H&P Exam - Hospitalist Normal [facility] HbA1c (Bld) [Mass fraction]O rdered By: Mckenzie Austin on 08-09-2024 Hemoglobin A1c percentage 8.9 % >5.7 [facility] Hematocrit Auto (Bld) [Volum e fraction]Ordered By: Airam Rocha on 08-09-2024 Hematocrit (Bld) [Volume fraction] 30.3 % Low 37-47 [facility] Hemoglobin A1c percentageOrd ered By: Mckenzie Austin on 08-09-2024 HbA1c (Bld) [Mass fraction] 8.9 % >5.7 [facility] Hemoglobin measurementOrdere d By: Airam Rocha on 08-09-2024 Hemoglobin (Bld) [Mass/Vol] 9.0 g/dL Low 12.0-15.0 [facility] Immature granulocytes/100 WB C Auto (Bld)Ordered By: Airam Rocha on 08-09-2024 Immature granulocytes/100 WBC (Bld) 0.600 % 0.0-0.9 [facility] Comment on above: IG% - Immature Granu locytes (promyelocytes, myelocytes and metamyelocytes) > 1% indicates that a LEFT SHIFT is Present. International normalized rat io (INR) calculationOrdered By: Airam Rocha on 08-09-2024 INR Coag (Bld) [Relative time] 0.9 {INR} [facility] International normalized ratio (INR) calculation 0.9 [facility] Ketones Test strip Ql (U)Ord ered By: Airam Rocha on 08-09-2024 Ketones Ql (U) Negative Negative [facility] L509.7001on 08-09-2024 Procalcitonin 0.09 ng/mL Normal <=0.10 [facility] Comment on above: Order Comment: Comme nts: add to ED labs Result Comment: Inte rpretation:<0.10-0.25 ng/mL: Antibiotic therapy discouraged. Bacterialinfection unlikely.0.25-0.50 ng/mL: Antibiotic therapy encouraged. Bacterialinfection possible.>0.50 ng/mL: Antibiotic therapy strongly encouraged.Suggestive of presence of bacterial infection.PCT should always be interpreted in the clinical context ofthe patient. Therefore, clinicians should use the PCTresults in conjunction with other laboratory findings andclinical signs of the patient. Performed By: #### L 509.7001 ####[facility] [address] [place], [address] Laboratory - Chemistry and C hemistry - challengeOrdered By: Airam Rocha on 08-09-2024 AST [Catalytic activity/Vol] 10 U/L <32 [facility] Lactic Acidon 08-09-2024 Lactate [Moles/Vol] 1.2 mmol/L Normal 0.0-2.0 [facility] Comment on above: Order Comment: Y Performed By: #### L 100.0100, L503.6005, L300.4310, M200.1000, L300.3900, L500.4050 ####[facility] [address] [place], [address] Lactic acid measurementOrder ed By: Airam Rocha on 08-09-2024 Lactate [Moles/Vol] 1.2 mmol/L 0.0-2.0 [facility] Lactic acid measurement 1.2 mmol/L 0.0-2.0 [facility] Lymphocytes Auto (Unsp spec) [#/Vol]Ordered By: Airam Rocha on 08-09-2024 Lymphocytes (Bld) [#/Vol] 0.91 10*3/uL 0.83-4.51 [facility] Lymphocytes/100 WBC Auto (Un sp spec)Ordered By: Airam Rocha on 08-09-2024 Lymphocytes/100 WBC (Bld) 25.7 % 19-41 [facility] MCV (mean corpuscular volume ) determinationOrdered By: Airam Rocha on 08-09-2024 MCV (RBC) [Entitic vol] 91.8 fL 81-99 [facility] Mean corpuscular hemoglobin (MCH) determinationOrdered By: Airam Rocha on 08-09-2024 MCH (RBC) [Entitic mass] 27.3 pg 27.0-32.0 [facility] Mean corpuscular hemoglobin concentration (MCHC) determinationOrdered By: Airam Rocha on 08-09-2024 MCHC (RBC) [Mass/Vol] 29.7 g/dL Low 32-36 [facility] Mean platelet volume determi nationOrdered By: Airam Rocha on 08-09-2024 Platelet mean volume (Bld) [Entitic vol] 10.4 fL 6.2-12.0 [facility] Microscopic analysis of urin e for red blood cells (RBC)Ordered By: Airam Rocha on 08-09-2024 Urine RBC 0 SEEN /hpf 0-5 [facility] Monocyte percentageOrdered B y: Airam Rocha on 08-09-2024 Monocytes/100 WBC (Bld) 7.9 % 0-10 [facility] Mucus LM Ql (Urine sed)Order ed By: Airam Rocha on 08-09-2024 Mucus Ql (Urine sed) 0 SEEN /hpf [facility] Neutrophil percentageOrdered By: Airam Rocha on 08-09-2024 Neutrophils/100 WBC (Bld) 64.4 % 47-70 [facility] Nitrite Test strip Ql (U)Ord ered By: Airam Rocha on 08-09-2024 Nitrite Ql (U) Negative Negative [facility] No Panel InformationOrdered By: Mckenzie Austin on 08-09-2024 0.09 ng/mL <0.11 [facility] Nucleated red blood cell per centageOrdered By: Airam Rocha on 08-09-2024 Nucleated RBC/100 WBC (Bld) [Ratio] 0 % 0-5 [facility] Partial Thromboplast Timeon 08-09-2024 aPTT Coag (Bld) [Time] 22.6 s Low 24.1-36.2 [facility] Comment on above: Performed By: #### L 100.0100, L503.6005, L300.4310, M200.1000, L300.3900, L500.4050 ####[facility] [address] [place], [place], [id number] Platelet countOrdered By: Olivia Rocha on 08-09-2024 Platelets (Bld) [#/Vol] 149 10*3/uL Low 150-450 [facility] Potassium (Unsp spec) [Mass/ Vol]Ordered By: Airam Rocha on 08-09-2024 Potassium [Moles/Vol] 4.3 mmol/L 3.3-5.1 [facility] Protein Test strip Ql (U)Ord ered By: Airam Rocha on 08-09-2024 Protein Ql (U) 30 mg/dl High Negative [facility] Urine protein assay by test strip, semi-quantitative 30 mg/dl High Negative [facility] Prothrombin Time w/INRon INR Coag (PPP) [Relative time] 0.9 {INR} Normal [facility] Comment on above: Performed By: #### L 100.0100, L503.6005, L300.4310, M200.1000, L300.3900, L500.4050 ####[facility] [address] [place], [place], [id number] PT Coag (PPP) [Time] 12.3 s Normal 11.7-14.9 [facility] Comment on above: Performed By: #### L 100.0100, L503.6005, L300.4310, M200.1000, L300.3900, L500.4050 ####[facility] [address] [place], [place], [id number] Prothrombin timeOrdered By: Airam Rocha on 08-09-2024 PT Coag (PPP) [Time] 12.3 s 11.7-14.9 [facility] Prothrombin time 12.3 SECONDS 11.7-14.9 [facility] RBC Auto (Bld) [#/Vol]Ordere d By: Airam Rocha on 08-09-2024 RBC (Bld) [#/Vol] 3.30 10*6/uL Low 4.2-5.4 [facility] Respiratory pathogens detect ion panel by molecular detection methodOrdered By: Mckenzie Austin on 08-09-2024 Respiratory pathogens DNA and RNA panel MARY+probe (Resp) [facility] Serum creatinine measurement (mass/volume)Ordered By: Airam Rocha on 08-09-2024 Creatinine [Mass/Vol] 0.91 mg/dL 0.70-1.20 [facility] Serum globulin measurementOr dered By: Airam Rocha on 08-09-2024 Globulin (S) [Mass/Vol] 1.8 g/dL Low 2.2-4.2 [facility] Serum glucose measurement (m ass/volume)Ordered By: Airam Rocha on 08-09-2024 Glucose [Mass/Vol] 560 mg/dL High 70-99 [facility] Comment on above: Critical Result(s) C ana [place] at: 1953 by: HONORIO Results read back by same. Serum or plasma alanine guerrero otransferase (ALT) measurementOrdered By: Airam Rocha on 08-09-2024 ALT [Catalytic activity/Vol] 12 U/L <35 [facility] Serum or plasma albumin marisela urement (mass/volume)Ordered By: Airam Rocha on 08-09-2024 Albumin [Mass/Vol] 3.9 g/dL 3.4-4.8 [facility] Serum or plasma albumin/glob ulin mass ratioOrdered By: Airam Rocha on 08-09-2024 Albumin/Globulin [Mass ratio] 2.1 {ratio} 0.9-2.4 [facility] Serum or plasma alkaline shaheen sphatase measurementOrdered By: Airam Rocha on 08-09-2024 ALP [Catalytic activity/Vol] 88 U/L 35-104 [facility] Serum or plasma calcium marisela urement (mass/volume)Ordered By: Airam Rocha on 08-09-2024 Calcium [Mass/Vol] 9.5 mg/dL 7.6-11.0 [facility] Serum or plasma urea nitroge n measurement (mass/volume)Ordered By: Airam Rocha on 08-09-2024 Urea nitrogen [Mass/Vol] 12 mg/dL 4-19 [facility] Sodium levelOrdered By: Airam Rocha on 08-09-2024 Sodium [Moles/Vol] 138 mmol/L 133-145 [facility] Specific gravity (U) [Rel de nsity]Ordered By: Airam Rocha on 08-09-2024 Urine specific gravity measurement 1.010 1.002-1.030 [facility] Squamous epithelial cells de tection in urine sediment by light microscopyOrdered By: Airam Rocha on 08-09-2024 Epithelial cells.squamous LM Ql (Urine sed) 0 SEEN /hpf 5-10 [facility] Total proteinOrdered By: Abbey Rocha on 08-09-2024 Protein [Mass/Vol] 5.7 g/dL Low 5.9-8.4 [facility] Urinalysis, Completeon 08-09 RBC 0 SEEN Normal 0-5 [facility] Comment on above: Order Comment: KASSIDY TER SPECIMEN Performed By: #### M 100.2200, L400.0001 ####[facility] [address] [place], [address] BACTERIA 0 SEEN Normal None Seen [facility] Comment on above: Order Comment: KASSIDY TER SPECIMEN Performed By: #### M 100.2200, L400.0001 ####[facility] [address] [place], [address] EPI,SQUAMOUS 0 SEEN Normal 5-10 [facility] Comment on above: Order Comment: KASSIDY TER SPECIMEN Performed By: #### M 100.2200, L400.0001 ####[facility] [address] [place], [address] Mucus Ql (Urine sed) 0 SEEN Normal [facility] Comment on above: Order Comment: KASSIDY TER SPECIMEN Performed By: #### M 100.2200, L400.0001 ####[facility] [address] [place], [address] WBC 0 SEEN Normal 0-5 [facility] Comment on above: Order Comment: KASSIDY TER SPECIMEN Performed By: #### M 100.2200, L400.0001 ####[facility] [address] [place], [address] Urine blood detectionOrdered By: Airam Rocha on 08-09-2024 Urine Occult Blood 10 /ul High Negative [facility] Urine blood detection 10 /ul High Negative [facility] Urine clarityOrdered By: Abbey Rocha on 08-09-2024 Clarity (U) Clear Clear [facility] Urine color determinationOrd ered By: Airam Rocha on 08-09-2024 Color (U) Yellow Yellow [facility] Urine cultureOrdered By: Abbey Rocha on 08-09-2024 Bacteria identified Cx Nom (U) Culture exhibits no growth. [facility] Urine culture Culture exhibits no growth. [facility] Urine glucose detectionOrder ed By: Airam Rocha on 08-09-2024 Glucose Ql (U) 1000 mg/dl High Normal [facility] Urine leukocyte esterase det ection by dipstickOrdered By: Airam Rocha on 08-09-2024 Leukocyte esterase Test strip Ql (U) Negative Negative [facility] Urine pHOrdered By: Airam guallpa on 08-09-2024 pH (U) 7.0 [pH] 5.0 - 8.0 [facility] Urine sediment bacteria coun t by microscopy (number/high power field)Ordered By: Airam Rocha on 08-09-2024 Bacteria LM.HPF (Urine sed) [#/Area] 0 /[HPF] None Seen [facility] Urine specific gravity measu rementOrdered By: Airam Rocha on 08-09-2024 Specific gravity (U) [Rel density] 1.010 1.002-1.030 [facility] Urine total bilirubin detect ion by test stripOrdered By: Airam Rocha on 08-09-2024 Urine total bilirubin detection by test strip Negative Negative [facility] Urine urobilinogen measureme ntOrdered By: Airam Rocha on 08-09-2024 Urobilinogen Ql (U) Normal mg/dl Normal [facility] Urobilinogen Ql (U)Ordered B y: Airam Rocha on 08-09-2024 Urine Urobilinogen Normal mg/dl Normal [facility] Urine urobilinogen measurement Normal mg/dl Normal [facility] White blood cell (WBC) count Ordered By: Airam Rocha on 08-09-2024 WBC (Bld) [#/Vol] 3.5 10*3/uL Low 4.4-11.0 [facility] White blood cell countOrdere d By: Airam Rocha on 08-09-2024 Urine WBC 0 SEEN /hpf 0-5 [facility] White blood cell count 0 SEEN /hpf 0-5 [facility] White blood cell count 0 SEEN /hpf [facility] aPTT Coag (PPP) [Time]Ordere d By: Airam Rocha on 08-09-2024 aPTT Coag (Bld) [Time] 22.6 s Low 24.1-36.2 [facility] Activated partial thromboplastin time (aPTT) in platelet poor plasma by coagulation a 22.6 Seconds Low 24.1-36.2 [facility] pH (U)Ordered By: Airam griffiths on 08-09-2024 Urine pH 7.0 5.0 - 8.0 [facility] CBC-Complete Blood Cnt No Di ffon 07-24-2024 Erythrocyte distribution width (RBC) [Ratio] 14.1 % Normal 11.6-14.6 [facility] Comment on above: Order Comment: BLOOD SMEAR FOR PATHOLOGY Performed By: #### L 100.0500 ####[facility] [address] [place], [address] Hematocrit (Bld) [Volume fraction] 34.9 % Low 37-47 [facility] Comment on above: Order Comment: BLOOD SMEAR FOR PATHOLOGY Performed By: #### L 100.0500 ####[facility] [address] [place], [address] Hemoglobin (Bld) [Mass/Vol] 10.0 g/dL Low 12.0-15.0 [facility] Comment on above: Order Comment: BLOOD SMEAR FOR PATHOLOGY Performed By: #### L 100.0500 ####[facility] [address] [place], [address] MCH (RBC) [Entitic mass] 27.7 pg Normal 27.0-32.0 [facility] Comment on above: Order Comment: BLOOD SMEAR FOR PATHOLOGY Performed By: #### L 100.0500 ####[facility] [address] [place], [address] MCHC (RBC) [Mass/Vol] 28.7 g/dL Low 32-36 [facility] Comment on above: Order Comment: BLOOD SMEAR FOR PATHOLOGY Performed By: #### L 100.0500 ####[facility] [address] [place], [address] MCV (RBC) [Entitic vol] 96.7 fL Normal 81-99 [facility] Comment on above: Order Comment: BLOOD SMEAR FOR PATHOLOGY Performed By: #### L 100.0500 ####[facility] [address] [place], [address] Platelet mean volume (Bld) [Entitic vol] 10.0 fL Normal 6.2-12.0 [facility] Comment on above: Order Comment: BLOOD SMEAR FOR PATHOLOGY Performed By: #### L 100.0500 ####[facility] [address] [place], [address] Platelets (Bld) [#/Vol] 244 10*3/uL Normal 150-450 [facility] Comment on above: Order Comment: BLOOD SMEAR FOR PATHOLOGY Performed By: #### L 100.0500 ####[facility] [address] [place], [address] RBC (Bld) [#/Vol] 3.61 10*6/uL Low 4.2-5.4 [facility] Comment on above: Order Comment: BLOOD SMEAR FOR PATHOLOGY Performed By: #### L 100.0500 ####[facility] [address] [place], [address] RDW SD 49.5 fl High 35.1-43.9 [facility] Comment on above: Order Comment: BLOOD SMEAR FOR PATHOLOGY Performed By: #### L 100.0500 ####[facility] [address] [place], [address] WBC (Bld) [#/Vol] 9.1 10*3/uL Normal 4.4-11.0 [facility] Comment on above: Order Comment: BLOOD SMEAR FOR PATHOLOGY Performed By: #### L 100.0500 ####[facility] [address] [place], [address] Erythrocyte distribution wid th (RBC) [Entitic vol]Ordered By: [facility] [place] on 07-24-2024 Erythrocyte distribution width standard deviation 49.5 fl High 35.1-43.9 [facility] Erythrocyte distribution wid th (RBC) [Ratio]Ordered By: [facility] [place] on 07-24-2024 Erythrocyte distribution width ratio 14.1 % 11.6-14.6 [facility] Erythrocyte distribution wid th ratioOrdered By: [facility] [place] on 07-24-2024 Erythrocyte distribution width (RBC) [Ratio] 14.1 % 11.6-14.6 [facility] Erythrocyte distribution wid th standard deviationOrdered By: [facility] on 07-[facility]-2024 Erythrocyte distribution width (RBC) [Entitic vol] 49.5 fL High 35.1-43.9 [facility] Erythrocyte distribution width (RBC) [Ratio] 49.5 fl High 35.1-43.9 [facility] Ferritinon 07-24-2024 Ferritin [Mass/Vol] 10 ng/mL Normal [facility] Comment on above: Order Comment: BLOOD SMEAR FOR PATHOLOGYOrder Date: 07/24/24Order Info: [id number] - IBCOrder Info: [id number] - TED Performed By: #### L 503.6030, L503.6550 ####[facility] [address] [place], [address] Ferritin measurementOrdered By: [facility] on 07-24-2024 Ferritin [Mass/Vol] 10 ng/mL [facility] Ferritin measurement 10 ng/mL [facility] Hematocrit Auto (Bld) [Volum e fraction]Ordered By: [facility] on 07-24-2024 Hematocrit (Bld) [Volume fraction] 34.9 % Low 37-47 [facility] Automated blood hematocrit (percentage) 34.9 % Low 37-47 [facility] Hemoglobin measurementOrdere d By: [facility] on 07-24-2024 Hemoglobin (Bld) [Mass/Vol] 10.0 g/dL Low 12.0-15.0 [facility] Hemoglobin measurement 10.0 g/dL Low 12.0-15.0 [facility] Iron (Unsp spec) [Mass/Mass] Ordered By: Corin Mariscal on 07-24-2024 Iron [Mass/Vol] 73 ug/dL 50-170 [facility] Iron measurement (mass/mass) 73 ug/dL 50-170 [facility] Iron measurement (mass/mass) Ordered By: Corin Mariscal on 07-24-2024 Iron (Unsp spec) [Mass/Mass] 73 ug/dL 50-170 [facility] Iron saturation [Mass fracti on]Ordered By: Corin Mariscal on 07-24-2024 Iron Saturation 17.8 % 15.0-55.0 [facility] Serum or plasma iron saturation measurement (mass fraction) 17.8 % 15.0-55.0 [facility] Iron+Iron Binding Capacityon 07-24-2024 Iron [Mass/Vol] 73 ug/dL Normal 50-170 [facility] Comment on above: Order Comment: BLOOD SMEAR FOR PATHOLOGYOrder Date: 07/24/24Order Info: [id number] - IBCOrder Info: [id number] - TED Performed By: #### L 503.6030, L503.6550 ####[facility] [address] [place], [address] IRON SATURATION 17.8 Normal 15.0-55.0 [facility] Comment on above: Order Comment: BLOOD SMEAR FOR PATHOLOGYOrder Date: 07/24/24Order Info: [id number] - IBCOrder Info: [id number] - TED Performed By: #### L 503.6030, L503.6550 ####[facility] [address] [place], [address] TIBC 411 ug/dL Normal 250-450 [facility] Comment on above: Order Comment: BLOOD SMEAR FOR PATHOLOGYOrder Date: 07/24/24Order Info: [id number] - IBCOrder Info: [id number] - TED Performed By: #### L 503.6030, L503.6550 ####[facility] [address] [place], [address] MCV (RBC) [Entitic vol]Order ed By: Corin Mariscal on 07-24-2024 MCV (mean corpuscular volume) determination 96.7 fL 81-99 [facility] MCV (mean corpuscular volume ) determinationOrdered By: Corin Mariscal on 07-24-2024 MCV (RBC) [Entitic vol] 96.7 fL 81-99 [facility] Mean corpuscular hemoglobin (MCH) determinationOrdered By: Corin Mariscal on 07-24-2024 MCH (RBC) [Entitic mass] 27.7 pg 27.0-32.0 [facility] Mean corpuscular hemoglobin (MCH) determination 27.7 pg 27.0-32.0 [facility] Mean corpuscular hemoglobin concentration (MCHC) determinationOrdered By: Corin Mariscal on 07-24-2024 MCHC (RBC) [Mass/Vol] 28.7 g/dL Low 32-36 [facility] Mean corpuscular hemoglobin concentration (MCHC) determination 28.7 g/dL Low 32-36 [facility] Mean platelet volume determi nationOrdered By: Corin Mariscal on 07-24-2024 Platelet mean volume (Bld) [Entitic vol] 10.0 fL 6.2-12.0 [facility] Mean platelet volume determination 10.0 fl 6.2-12.0 [facility] Platelet countOrdered By: Jami Mariscal on 07-24-2024 Platelets (Bld) [#/Vol] 244 10*3/uL 150-450 [facility] Platelet count 244 K/mm3 150-450 [facility] RBC Auto (Bld) [#/Vol]Ordere d By: Corin Mariscal on 07-24-2024 RBC (Bld) [#/Vol] 3.61 10*6/uL Low 4.2-5.4 [facility] Automated blood erythrocyte count 3.61 M/mm3 Low 4.2-5.4 [facility] Serum or plasma iron saturat ion measurement (mass fraction)Ordered By: Corin Mariscal on 07-24-2024 Iron saturation [Mass fraction] 17.8 % 15.0-55.0 [facility] TIBCOrdered By: Corin Mariscal on 07-24-2024 Total Iron Binding Capacity 411 ug/dL 250-450 [facility] TIBC 411 ug/dL 250-450 [facility] White blood cell (WBC) count Ordered By: Corin Mariscal on 07-24-2024 WBC (Bld) [#/Vol] 9.1 10*3/uL 4.4-11.0 [facility] White blood cell (WBC) count 9.1 K/mm3 4.4-11.0 [facility] Absolute lymphocyte countOrd ered By: Thong Sultana on 07-17-2024 Lymphocytes Auto (Unsp spec) [#/Vol] 0.31 10*3/uL Low 0.83-4.51 [facility] Absolute neutrophil countOrd ered By: Thong Sultana on 07-17-2024 Neutrophils (Bld) [#/Vol] 4.6 10*3/uL 2.0-7.7 [facility] Absolute neutrophil count 4.6 X10^3/uL 2.0-7.7 [facility] Automated blood erythrocyte countOrdered By: Thong Sultana on 07-17-2024 RBC (Bld) [#/Vol] 3.45 10*6/uL Low 4.2-5.4 [facility] Comment on above: Performed By: #### L 100.0100 ####[facility] [address] [place], [place], [id number] Automated blood hematocrit ( percentage)Ordered By: Thong Sultana on 07-17-2024 Hematocrit (Bld) [Volume fraction] 33.5 % Low 37-47 [facility] Comment on above: Performed By: #### L 100.0100 ####[facility] [address] [place], [place], [id number] Automated lymphocyte count a s percentage of total leukocytesOrdered By: Thong Sultana on 07-17-2024 Lymphocytes/100 WBC (Bld) 6.1 % Low 19-41 [facility] Comment on above: Performed By: #### L 100.0100 ####[facility] [address] [place], [address] Lymphocytes/100 WBC Auto (Unsp spec) 6.1 % Low 19-41 [facility] Basic Metabolic Profile (BMP )on 07-17-2024 BUN/CRE 23.8 RATIO High 10-20 [facility] Comment on above: Performed By: #### L 501.5200, L500.2500, L501.2300 ####[facility] [address] [place], [address] CA,Total 9.6 mg/dL Normal 8.5-10.1 [facility] Comment on above: Performed By: #### L 501.5200, L500.2500, L501.2300 ####[facility] [address] [place], [address] ECRCL 96.71 ml/min Normal [facility] Comment on above: Performed By: #### L 501.5200, L500.2500, L501.2300 ####[facility] [address] [place], [address] EST GFR - AA 88 mL/min Normal >60 [facility] Comment on above: Result Comment: Afri can Maltese GFR Calc Performed By: #### L 501.5200, L500.2500, L501.2300 ####[facility] [address] [place], [address] GAP 3 Low 5-15 [facility] Comment on above: Performed By: #### L 501.5200, L500.2500, L501.2300 ####[facility] [address] [place], [address] Basophil percentageOrdered B y: Thong Sultana on 07-17-2024 Basophils/100 WBC (Bld) 0.0 % Normal 0-1 [facility] Comment on above: Performed By: #### L 100.0100 ####[facility] [address] [place], [address] Blood urea nitrogen (BUN)/cr eatinine ratioOrdered By: Thong Sultana on 07-17-2024 Urea nitrogen/Creatinine [Mass ratio] 23.8 mg/mg High 10-20 [facility] Blood urea nitrogen (BUN)/creatinine ratio 23.8 RATIO High 10-20 [facility] CBC W/Diff, Automatedon 07-05 Absolute Lymph 0.31 X10 3/uL Low 0.83-4.51 [facility] Comment on above: Performed By: #### L 100.0100 ####[facility] [address] [place], [address] Absolute Neut 4.6 X10 3/uL Normal 2.0-7.7 [facility] Comment on above: Performed By: #### L 100.0100 ####[facility] [address] [place], [address] IG% 0.800 Normal 0.0-0.9 [facility] Comment on above: Result Comment: IG% - Immature Granulocytes (promyelocytes, myelocytes andmetamyelocytes) > 1% indicates that a LEFT SHIFT is Present. Performed By: #### L 100.0100 ####[facility] [address] [place], [address] Nucleated RBC (Bld) [#/Vol] 0 10*3/uL Normal 0-5 [facility] Comment on above: Performed By: #### L 100.0100 ####[facility] [address] [place], [address] RDW SD 48.4 fl High 35.1-43.9 [facility] Comment on above: Performed By: #### L 100.0100 ####[facility] [address] [place], [address] Calcium [Mass/Vol]Ordered By : Thong Sultana on 07-17-2024 Serum or plasma calcium measurement (mass/volume) 9.6 mg/dL 8.5-10.1 [facility] Carbon dioxide measurementOr dered By: Thong Sultana on 07-17-2024 CO2 [Moles/Vol] 35.0 mmol/L High 21.0-32.0 [facility] Comment on above: Performed By: #### L 501.5200, L500.2500, L501.2300 ####[facility] [address] [place], [address] Carbon dioxide measurement 35.0 mmol/L High 21.0-32.0 [facility] Chloride measurementOrdered By: Thong Sultana on 07-17-2024 Chloride [Moles/Vol] 100 mmol/L Normal 98-107 [facility] Comment on above: Performed By: #### L 501.5200, L500.2500, L501.2300 ####[facility] [address] [place], [place], [address] Chloride measurement 100 mmol/L 98-107 [facility] Creatinine [Mass/Vol]Ordered By: Thong Sultana on 07-17-2024 Serum or plasma creatinine measurement (mass/volume) 0.84 mg/dL 0.55-1.02 [facility] Discharge Instructionon 02 Discharge Instruction Normal [facility] Eosinophil percentageOrdered By: Thong Sultana on 07-17-2024 Eosinophils/100 WBC (Bld) 0.0 % Normal 0-5 [facility] Comment on above: Performed By: #### L 100.0100 ####[facility] [address] [place], [place], [id number] Eosinophil percentage 0.0 % 0-1 [facility] Erythrocyte distribution wid th (RBC) [Entitic vol]Ordered By: Thong Sultana on 07-17-2024 Erythrocyte distribution width standard deviation 48.4 fl High 35.1-43.9 [facility] Erythrocyte distribution wid th (RBC) [Ratio]Ordered By: Thong Sultana on 07-17-2024 Erythrocyte distribution width ratio 13.6 % 11.6-14.6 [facility] Erythrocyte distribution wid th ratioOrdered By: Thong Sultana on 07-17-2024 Erythrocyte distribution width (RBC) [Ratio] 13.6 % Normal 11.6-14.6 [facility] Comment on above: Performed By: #### L 100.0100 ####[facility] [address] [place], [place], [address] Erythrocyte distribution wid th standard deviationOrdered By: Thong Sultana on 07-17-2024 Erythrocyte distribution width (RBC) [Entitic vol] 48.4 fL High 35.1-43.9 [facility] Erythrocyte distribution width (RBC) [Ratio] 48.4 fl High 35.1-43.9 [facility] Estimated glomerular filtrat ion rate (GFR) AmericanOrdered By: Thong Sultana on 07-17-2024 Estimated GFR (MDRD) Amer 88 mL/min >60 [facility] Comment on above: GFR Calc Estimated glomerular filtration rate (GFR) 88 mL/min >60 [facility] Estimation of creatinine delvis aranceOrdered By: Thong Sultana on 07-17-2024 Estimated Creatinine Clearance Calc 96.71 ml/min [facility] Estimation of creatinine clearance 96.71 ml/min [facility] Glomerular filtration rate ( GFR) estimationOrdered By: Thong Sultana on 07-17-2024 GFR/1.73 sq M.predicted among non-blacks MDRD (S/P/Bld) [Vol rate/Area] 73 mL/min/{1.73_m2} Normal >60 [facility] Comment on above: Result Comment: Non- GFR Calc Performed By: #### L 501.5200, L500.2500, L501.2300 ####[facility] [address] [place], [place], [address] Estimated GFR (MDRD) Non-Af Amer 73 mL/min >60 [facility] Comment on above: Non- GFR Calc Glomerular filtration rate (GFR) estimation 73 mL/min >60 [facility] Glucose measurementOrdered B y: Thong Sultana on 07-17-2024 Glucose [Mass/Vol] 233 mg/dL High 74-106 [facility] Comment on above: Glucose result great er than or equal to 200 mg/dLsuggests DIABETES MELLITUS per A.D.A. criteria. Result Comment: Gluc ose result greater than or equal to 200 mg/dLsuggests DIABETES MELLITUS per A.D.A. criteria. Performed By: #### L 501.5200, L500.2500, L501.2300 ####[facility] [address] [place], [place], [address] Glucose measurement 233 mg/dL High 74-106 [facility] Hematocrit Auto (Bld) [Volum e fraction]Ordered By: Thong Sultana on 07-17-2024 Automated blood hematocrit (percentage) 33.5 % Low 37-47 [facility] Hemoglobin measurementOrdere d By: Thong Sultana on 07-17-2024 Hemoglobin (Bld) [Mass/Vol] 9.8 g/dL Low 12.0-15.0 [facility] Comment on above: Performed By: #### L 100.0100 ####[facility] [address] [place], [place], [id number] Hemoglobin measurement 9.8 g/dL Low 12.0-15.0 [facility] Immature granulocytes/100 WB C Auto (Bld)Ordered By: Thong Sultana on 07-17-2024 Immature granulocytes/100 WBC (Bld) 0.800 % 0.0-0.9 [facility] Comment on above: IG% - Immature Granu locytes (promyelocytes, myelocytes and metamyelocytes) > 1% indicates that a LEFT SHIFT is Present. Automated immature granulocyte percentage 0.800 % 0.0-0.9 [facility] Lymphocytes Auto (Unsp spec) [#/Vol]Ordered By: Thong Sultana on 07-17-2024 Lymphocytes (Bld) [#/Vol] 0.31 10*3/uL Low 0.83-4.51 [facility] Absolute lymphocyte count 0.31 X10^3/uL Low 0.83-4.51 [facility] Lymphocytes/100 WBC Auto (Un sp spec)Ordered By: Thong Sultana on 07-17-2024 Automated lymphocyte count as percentage of total leukocytes 6.1 % Low 19-41 [facility] MCV (RBC) [Entitic vol]Order ed By: Thong Sultana on 07-17-2024 MCV (mean corpuscular volume) determination 97.1 fL 81-99 [facility] MCV (mean corpuscular volume ) determinationOrdered By: Thong Sultana on 07-17-2024 MCV (RBC) [Entitic vol] 97.1 fL Normal 81-99 [facility] Comment on above: Performed By: #### L 100.0100 ####[facility] [address] [place], [address] Magnesium measurementOrdered By: Beck Tidwell on 07-17-2024 Magnesium [Mass/Vol] 2.5 mg/dL Normal 1.6-2.6 [facility] Comment on above: Performed By: #### L 501.5200, L500.2500, L501.2300 ####[facility] [address] [place], [address] Magnesium measurement 2.5 mg/dL 1.6-2.6 [facility] Mean corpuscular hemoglobin (MCH) determinationOrdered By: Thong Sultana on 07-17-2024 MCH (RBC) [Entitic mass] 28.4 pg Normal 27.0-32.0 [facility] Comment on above: Performed By: #### L 100.0100 ####[facility] [address] [place], [address] Mean corpuscular hemoglobin (MCH) determination 28.4 pg 27.0-32.0 [facility] Mean corpuscular hemoglobin concentration (MCHC) determinationOrdered By: Thong Sultana on 07-17-2024 MCHC (RBC) [Mass/Vol] 29.3 g/dL Low 32-36 [facility] Comment on above: Performed By: #### L 100.0100 ####[facility] [address] [place], [place], [address] Mean corpuscular hemoglobin concentration (MCHC) determination 29.3 g/dL Low 32-36 [facility] Mean platelet volume determi nationOrdered By: Thong Sultana on 07-17-2024 Platelet mean volume (Bld) [Entitic vol] 9.9 fL Normal 6.2-12.0 [facility] Comment on above: Performed By: #### L 100.0100 ####[facility] [address] [place], [address] Mean platelet volume determination 9.9 fl 6.2-12.0 [facility] Monocyte percentageOrdered B y: Thong Sultana on 07-17-2024 Monocytes/100 WBC (Bld) 3.0 % Normal 0-10 [facility] Comment on above: Performed By: #### L 100.0100 ####[facility] [address] [place], [address] Monocyte percentage 3.0 % 0-10 [facility] Neutrophil percentageOrdered By: Thong Sultana on 07-17-2024 Neutrophils/100 WBC (Bld) 90.1 % High 47-70 [facility] Comment on above: Performed By: #### L 100.0100 ####[facility] [address] [place], [address] Neutrophil percentage 90.1 % High 47-70 [facility] Nucleated red blood cell per centageOrdered By: Thong Sultana on 07-17-2024 Nucleated RBC/100 WBC (Bld) [Ratio] 0 % 0-5 [facility] Nucleated red blood cell percentage 0 % 0-5 [facility] Phosphoruson 07-17-2024 Phosphate [Mass/Vol] 2.8 mg/dL Normal 2.5-4.9 [facility] Comment on above: Performed By: #### L 501.5200, L500.2500, L501.2300 ####[facility] [address] [place], [address] Phosphorus measurementOrdere d By: Beck Tidwell on 07-17-2024 Phosphorus Level 2.8 mg/dL 2.5-4.9 [facility] Phosphorus measurement 2.8 mg/dL 2.5-4.9 [facility] Platelet countOrdered By: Libby Sultana on 07-17-2024 Platelets (Bld) [#/Vol] 199 10*3/uL Normal 150-450 [facility] Comment on above: Performed By: #### L 100.0100 ####[facility] [address] [place], [address] Platelet count 199 K/mm3 150-450 [facility] Potassium measurementOrdered By: Thong Sultana on 07-17-2024 Potassium [Moles/Vol] 4.9 mmol/L Normal 3.5-5.1 [facility] Comment on above: Performed By: #### L 501.5200, L500.2500, L501.2300 ####[facility] [address] [place], [address] Potassium measurement 4.9 mmol/L 3.5-5.1 [facility] RBC Auto (Bld) [#/Vol]Ordere d By: Thong Sultana on 07-17-2024 Automated blood erythrocyte count 3.45 M/mm3 Low 4.2-5.4 [facility] Serum anion gap measurementO rdered By: Thong Sultana on 07-17-2024 Anion gap [Moles/Vol] 3 mmol/L Low 5-15 [facility] Serum anion gap measurement 3 Low 5-15 [facility] Serum or plasma calcium marisela urement (mass/volume)Ordered By: Thong Sultana on 07-17-2024 Calcium [Mass/Vol] 9.6 mg/dL 8.5-10.1 [facility] Serum or plasma creatinine m easurement (mass/volume)Ordered By: Thong Sultana on 07-17-2024 Creatinine [Mass/Vol] 0.84 mg/dL Normal 0.55-1.02 [facility] Comment on above: The validity of the calculated GFR & GFRAA in patients over 70 years has not been determined. Clinical correlation is essential. Result Comment: The validity of the calculated GFR GFRAA in patients over70 years has not been determined. Clinical correlation isessential. Performed By: #### L 501.5200, L500.2500, L501.2300 ####[facility] [address] [place], [address] Serum or plasma urea nitroge n measurement (mass/volume)Ordered By: Thong Sultana on 07-17-2024 Urea nitrogen [Mass/Vol] 20 mg/dL [address] Comment on above: Performed By: #### L 501.5200, L500.2500, L501.2300 ####[facility] [address] [place], [address] Sodium levelOrdered By: Luis Sultana on 07-17-2024 Sodium [Moles/Vol] 138 mmol/L Normal 136-145 [facility] Comment on above: Performed By: #### L 501.5200, L500.2500, L501.2300 ####[facility] [address] [place], [address] Sodium level 138 mmol/L 136-145 [facility] Urea nitrogen [Mass/Vol]Orde red By: Thong Sultana on 07-17-2024 Serum or plasma urea nitrogen measurement (mass/volume) 20 mg/dL [address] White blood cell (WBC) count Ordered By: Thong Sultana on 07-17-2024 WBC (Bld) [#/Vol] 5.1 10*3/uL Normal 4.4-11.0 [facility] Comment on above: Performed By: #### L 100.0100 ####[facility] [address] [place], [place], [id number] White blood cell (WBC) count 5.1 K/mm3 4.4-11.0 [facility] ALP [Catalytic activity/Vol] Ordered By: Beck Tidwell on 07-16-2024 Serum or plasma alkaline phosphatase measurement 83 U/L 45-117 [facility] ALT [Catalytic activity/Vol] Ordered By: Beck Tidwell on 07-16-2024 Serum or plasma alanine aminotransferase (ALT) measurement 16 U/L 13-56 [facility] Albumin [Mass/Vol]Ordered By : Beck Tidwell on 07-16-2024 Serum or plasma albumin measurement (mass/volume) 3.1 g/dL Low 3.2-5.0 [facility] Albumin to globulin ratioOrd ered By: Beck Tidwell on 07-16-2024 Albumin/Globulin [Mass ratio] 1.0 {ratio} 0.9-2.4 [facility] Albumin to globulin ratio 1.0 RATIO 0.9-2.4 [facility] Alcohol, Blood (Medical)-Ser umon 07-16-2024 SERUM ETOH < 3.0 Normal [facility] Comment on above: Result Comment: The serum:whole blood ethanol ratio is approximately 1.14and varies slightly with hematocrit.Medical Alcohol reference interval and critical value innon-tolerant individuals; 50 - 100 Impairment 100 Intoxication 100 - 250 Severe Poisoning 250 - 400 Deep/possible fatal coma Performed By: #### L 501.9100, L501.9520, L505.5000, L506.0250, L503.6620, L503.0105 ####[facility] [address] [place], [place], [address] Arterial patency Wrist arter y --pre arterial punctureOrdered By: Beck Tidwell on 07-16-2024 Adi Test Positive [facility] Assessment of wrist artery patency prior to arterial puncture Positive [facility] Assessment of wrist artery p atency prior to arterial punctureOrdered By: Beck Tidwell on 07-16-2024 Arterial patency Wrist artery --pre arterial puncture Positive [facility] BNP,B-Type NATRIURETIC PEPTI Tho 07-16-2024 Natriuretic peptide B (Bld) [Mass/Vol] 124.0 pg/mL High 0-100 [facility] Comment on above: Performed By: #### L 501.9100, L501.9520, L505.5000, L506.0250, L503.6620, L503.0105 ####[facility] [address] [place], [address] Base excess Calc (BldV) [Mol es/Vol]Ordered By: Beck Tidwell on 07-16-2024 Blood Gas Base Excess 14 mmol/L [facility] -2-2 [facility] Blood base excess determination 14 mmol/L [facility]2-2 [facility] Bilirubin, totalOrdered By: Beck Tidwell on 07-16-2024 Bilirubin [Mass/Vol] 1.00 mg/dL 0.20-1.00 [facility] Comment on above: For patients on eltr ombopag therapy, use of [employer] [place] TBIL is not recommended. Bilirubin, total 1.00 mg/dL 0.20-1.00 [facility] Blood Gases by CPSon 025 ADI TEST Positive Normal [facility] Comment on above: Performed By: #### L 9000.0800 ####[facility] [address] [place], [address] Base excess Calc (Bld) [Moles/Vol] 14 mmol/L High -2 to +2 [facility] Comment on above: Performed By: #### L 9000.0800 ####[facility] [address] [place], [address] Blood Gas Type ART Normal [facility] Comment on above: Performed By: #### L 9000.0800 ####[facility] [address] [place], [address] CO2 [Moles/Vol] 42 mmol/L Normal [facility] Comment on above: Performed By: #### L 9000.08 ####[facility] [address] [place], [address] FI02 30.0 Normal [facility] Comment on above: Performed By: #### L 8999.0800 ####[facility] [address] [place], [address] HCO3 (Bld) [Moles/Vol] 39.5 mmol/L High 22-26 [facility] Comment on above: Performed By: #### L 0.0800 ####[facility] [address] [place], [address] Mode Not entered [facility] Comment on above: Performed By: #### L 0.0800 ####[facility] [address] [place], [address] O2 Delivery Dev BiPAP Normal [facility] Comment on above: Performed By: #### L 0.0800 ####[facility] [address] [place], [address] pCO2 75.8 mmHg Invalid Interpretation Code 35-45 [facility] Comment on above: Performed By: #### L 0.0800 ####[facility] [address] [place], [address] PEEP 10 Normal [facility] Comment on above: Performed By: #### L 0.0800 ####[facility] [address] [place], [address] pH (Bld) 7.33 [pH] Low 7.35-7.45 [facility] Comment on above: Performed By: #### L 9000.0800 ####[facility] [address] [place], [address] PIP 24 Normal [facility] Comment on above: Performed By: #### L 9000.0800 ####[facility] [address] [place], [address] PO2 77 mmHG Normal 75-100 [facility] Comment on above: Performed By: #### L 9000.0800 ####[facility] [address] [place], [address] Read Back By Yes Normal [facility] Comment on above: Performed By: #### L 9000.0800 ####[facility] [address] [place], [address] RR 20 Normal [facility] Comment on above: Performed By: #### L 9000.0800 ####[facility] [address] [place], [address] SITE L Radial Normal [facility] Comment on above: Performed By: #### L 0.0800 ####[facility] [address] [place], [address] SO2 93 Low 95-99 [facility] Comment on above: Performed By: #### L 9000.0800 ####[facility] [address] [place], [address] Vt 550.0 mL Normal [facility] Comment on above: Performed By: #### L 9000.0800 ####[facility] [address] [place], [address] ADI TEST Positive Normal [facility] Comment on above: Performed By: #### L 9000.0800 ####[facility] [address] [place], [address] Base excess Calc (Bld) [Moles/Vol] 15 mmol/L High -2 to +2 [facility] Comment on above: Performed By: #### L 9000.0800 ####[facility] [address] [place], [address] Blood Gas Type ART Normal [facility] Comment on above: Performed By: #### L 9000.0800 ####[facility] [address] [place], [address] CO2 [Moles/Vol] 44 mmol/L Normal [facility] Comment on above: Performed By: #### L 9000.0800 ####[facility] [address] [place], [address] FI02 30.0 Normal [facility] Comment on above: Performed By: #### L 9000.0800 ####[facility] [address] [place], [address] HCO3 (Bld) [Moles/Vol] 41.7 mmol/L High 22-26 [facility] Comment on above: Performed By: #### L 9000.0800 ####[facility] [address] [place], [address] Mode Not entered Normal [facility] Comment on above: Performed By: #### L 9000.0800 ####[facility] [address] [place], [address] O2 Delivery Dev BiPAP Normal [facility] Comment on above: Performed By: #### L 9000.0800 ####[facility] [address] [place], [address] pCO2 84.3 mmHg Invalid Interpretation Code 35-45 [facility] Comment on above: Performed By: #### L 9000.0800 ####[facility] [address] [place], [address] PEEP 10 Normal [facility] Comment on above: Performed By: #### L 9000.0800 ####[facility] [address] [place], [address] pH (Bld) 7.30 [pH] Low 7.35-7.45 [facility] Comment on above: Performed By: #### L 9000.0800 ####[facility] [address] [place], [address] PIP 16 Normal [facility] Comment on above: Performed By: #### L 9000.0800 ####[facility] [address] [place], [address] PO2 87 mmHG Normal 75-100 [facility] Comment on above: Performed By: #### L 9000.0800 ####[facility] [address] [place], [address] Read Back By Yes Normal [facility] Comment on above: Performed By: #### L 9000.0800 ####[facility] [address] [place], [address] RR 12 Normal [facility] Comment on above: Performed By: #### L 9000.0800 ####[facility] [address] [place], [address] SITE L Radial Normal [facility] Comment on above: Performed By: #### L 9000.0800 ####[facility] [address] [place], [address] SO2 95 Normal 95-99 [facility] Comment on above: Performed By: #### L 9000.0800 ####[facility] [address] [place], [address] Blood base excess determinat ionOrdered By: Beck Tidwell on 07-16-2024 Base excess Calc (BldV) [Moles/Vol] 14 mmol/L High -2-2 [facility] Blood bicarbonate measuremen tOrdered By: Beck Tidwell on 07-16-2024 Blood Gas Bicarbonate Actual 39.5 mmol/L [facility] HCO3 (Bld) [Moles/Vol] 39.5 mmol/L High - [facility] Blood bicarbonate measurement 39.5 mmol/L High - [facility] CBC W/Diff, Automatedon 07-05 Absolute Lymph 0.32 X10 3/uL Low 0.83-4.51 [facility] Comment on above: Performed By: #### L 501.5200, L500.4050, L100.0100, L501.2300 ####[facility] [address] [place], [address] Absolute Neut 4.3 X10 3/uL Normal 2.0-7.7 [facility] Comment on above: Performed By: #### L 501.5200, L500.4050, L100.0100, L501.2300 ####[facility] [address] [place], [address] Basophils/100 WBC (Bld) 0.0 % Normal 0-1 [facility] Comment on above: Performed By: #### L 501.5200, L500.4050, L100.0100, L501.2300 ####[facility] [address] [place], [address] Eosinophils/100 WBC (Bld) 0.2 % Normal 0-5 [facility] Comment on above: Performed By: #### L 501.5200, L500.4050, L100.0100, L501.2300 ####[facility] [address] [place], [address] Erythrocyte distribution width (RBC) [Ratio] 14.0 % Normal 11.6-14.6 [facility] Comment on above: Performed By: #### L 501.5200, L500.4050, L100.0100, L501.2300 ####[facility] [address] [place], [address] Hematocrit (Bld) [Volume fraction] 32.5 % Low 37-47 [facility] Comment on above: Performed By: #### L 501.5200, L500.4050, L100.0100, L501.2300 ####[facility] [address] [place], [address] Hemoglobin (Bld) [Mass/Vol] 9.5 g/dL Low 12.0-15.0 [facility] Comment on above: Performed By: #### L 501.5200, L500.4050, L100.0100, L501.2300 ####[facility] [address] [place], [address] IG% 0.400 Normal 0.0-0.9 [facility] Comment on above: Result Comment: IG% - Immature Granulocytes (promyelocytes, myelocytes andmetamyelocytes) > 1% indicates that a LEFT SHIFT is Present. Performed By: #### L 501.5200, L500.4050, L100.0100, L501.2300 ####[facility] [address] [place], [address] Lymphocytes/100 WBC (Bld) 6.7 % Low 19-41 [facility] Comment on above: Performed By: #### L 501.5200, L500.4050, L100.0100, L501.2300 ####[facility] [address] [place], [address] MCH (RBC) [Entitic mass] 28.3 pg Normal 27.0-32.0 [facility] Comment on above: Performed By: #### L 501.5200, L500.4050, L100.0100, L501.2300 ####[facility] [address] [place], [address] MCHC (RBC) [Mass/Vol] 29.2 g/dL Low 32-36 [facility] Comment on above: Performed By: #### L 501.5200, L500.4050, L100.0100, L501.2300 ####[facility] [address] [place], [address] MCV (RBC) [Entitic vol] 96.7 fL Normal 81-99 [facility] Comment on above: Performed By: #### L 501.5200, L500.4050, L100.0100, L501.2300 ####[facility] [address] [place], [address] Monocytes/100 WBC (Bld) 3.3 % Normal 0-10 [facility] Comment on above: Performed By: #### L 501.5200, L500.4050, L100.0100, L501.2300 ####[facility] [address] [place], [address] Neutrophils/100 WBC (Bld) 89.4 % High 47-70 [facility] Comment on above: Performed By: #### L 501.5200, L500.4050, L100.0100, L501.2300 ####[facility] [address] [place], [address] Nucleated RBC (Bld) [#/Vol] 0 10*3/uL Normal 0-5 [facility] Comment on above: Performed By: #### L 501.5200, L500.4050, L100.0100, L501.2300 ####[facility] [address] [place], [address] Platelet mean volume (Bld) [Entitic vol] 9.3 fL Normal 6.2-12.0 [facility] Comment on above: Performed By: #### L 501.5200, L500.4050, L100.0100, L501.2300 ####[facility] [address] [place], [address] Platelets (Bld) [#/Vol] 159 10*3/uL Normal 150-450 [facility] Comment on above: Performed By: #### L 501.5200, L500.4050, L100.0100, L501.2300 ####[facility] [address] [place], [address] RBC (Bld) [#/Vol] 3.36 10*6/uL Low 4.2-5.4 [facility] Comment on above: Performed By: #### L 501.5200, L500.4050, L100.0100, L501.2300 ####[facility] [address] [place], [address] RDW SD 49.1 fl High 35.1-43.9 [facility] Comment on above: Performed By: #### L 501.5200, L500.4050, L100.0100, L501.2300 ####[facility] [address] [place], [address] WBC (Bld) [#/Vol] 4.8 10*3/uL Normal 4.4-11.0 [facility] Comment on above: Performed By: #### L 501.5200, L500.4050, L100.0100, L501.2300 ####[facility] [address] [place], [address] [facility] 07-16-2024 Albumin [Mass/Vol] 3.1 g/dL Low 3.2-5.0 [facility] Comment on above: Performed By: #### L 501.5200, L500.4050, L100.0100, L501.2300 ####[facility] [address] [place], [address] Albumin/Globulin [Mass ratio] 1.0 {ratio} Normal 0.9-2.4 [facility] Comment on above: Performed By: #### L 501.5200, L500.4050, L100.0100, L501.2300 ####[facility] [address] [place], [address] ALK P 83 U/L Normal 45-117 [facility] Comment on above: Performed By: #### L 501.5200, L500.4050, L100.0100, L501.2300 ####[facility] [address] [place], [address] ALT [Catalytic activity/Vol] 16 U/L Normal 13-56 [facility] Comment on above: Performed By: #### L 501.5200, L500.4050, L100.0100, L501.2300 ####[facility] [address] [place], [address] AST [Catalytic activity/Vol] 12 U/L Low 15-37 [facility] Comment on above: Performed By: #### L 501.5200, L500.4050, L100.0100, L501.2300 ####[facility] [address] [place], [address] Bilirubin [Mass/Vol] 1.00 mg/dL Normal 0.20-1.00 [facility] Comment on above: Result Comment: For patients on eltrombopag therapy, use of [employer] [place] TBIL is not recommended. Performed By: #### L 501.5200, L500.4050, L100.0100, L501.2300 ####[facility] [address] [place], [address] BUN/CRE 21.8 RATIO High 10-20 [facility] Comment on above: Performed By: #### L 501.5200, L500.4050, L100.0100, L501.2300 ####[facility] [address] [place], [address] CA,Total 8.9 mg/dL Normal 8.5-10.1 [facility] Comment on above: Performed By: #### L 501.5200, L500.4050, L100.0100, L501.2300 ####[facility] [address] [place], [address] Chloride [Moles/Vol] 100 mmol/L Normal 98-107 [facility] Comment on above: Performed By: #### L 501.5200, L500.4050, L100.0100, L501.2300 ####[facility] [address] [place], [address] CO2 [Moles/Vol] 35.0 mmol/L High 21.0-32.0 [facility] Comment on above: Performed By: #### L 501.5200, L500.4050, L100.0100, L501.2300 ####[facility] [address] [place], [address] Creatinine [Mass/Vol] 0.64 mg/dL Normal 0.55-1.02 [facility] Comment on above: Result Comment: The validity of the calculated GFR GFRAA in patients over70 years has not been determined. Clinical correlation isessential. Performed By: #### L 501.5200, L500.4050, L100.0100, L501.2300 ####[facility] [address] [place], [address] ECRCL 123.71 ml/min Normal [facility] Comment on above: Performed By: #### L 501.5200, L500.4050, L100.0100, L501.2300 ####[facility] [address] [place], [address] EST GFR - AA 121 mL/min Normal >60 [facility] Comment on above: Result Comment: Afri can Maltese GFR Calc Performed By: #### L 501.5200, L500.4050, L100.0100, L501.2300 ####[facility] [address] [place], [address] GAP 3 Low 5-15 [facility] Comment on above: Performed By: #### L 501.5200, L500.4050, L100.0100, L501.2300 ####[facility] [address] [place], [address] GFR/1.73 sq M.predicted among non-blacks MDRD (S/P/Bld) [Vol rate/Area] 100 mL/min/{1.73_m2} Normal >60 [facility] Comment on above: Result Comment: Non- GFR Calc Performed By: #### L 501.5200, L500.4050, L100.0100, L501.2300 ####[facility] [address] [place], [address] Globulin (S) [Mass/Vol] 3.0 g/dL Normal 2.2-4.2 [facility] Comment on above: Performed By: #### L 501.5200, L500.4050, L100.0100, L501.2300 ####[facility] [address] [place], [address] Glucose [Mass/Vol] 181 mg/dL High 74-106 [facility] Comment on above: Result Comment: Fast ing Glucose result greater than or equal to 126 mg/dLsuggests DIABETES MELLITUS per A.D.A. criteria. Performed By: #### L 501.5200, L500.4050, L100.0100, L501.2300 ####[facility] [address] [place], [address] Potassium [Moles/Vol] 5.0 mmol/L Normal 3.5-5.1 [facility] Comment on above: Performed By: #### L 501.5200, L500.4050, L100.0100, L501.2300 ####[facility] [address] [place], [address] Sodium [Moles/Vol] 138 mmol/L Normal 136-145 [facility] Comment on above: Performed By: #### L 501.5200, L500.4050, L100.0100, L501.2300 ####[facility] [address] [place], [address] T PROT 6.1 g/dL Low 6.4-8.2 [facility] Comment on above: Performed By: #### L 501.5200, L500.4050, L100.0100, L501.2300 ####[facility] [address] [place], [address] Urea nitrogen [Mass/Vol] 14 mg/dL Normal 7-18 [facility] Comment on above: Performed By: #### L 501.5200, L500.4050, L100.0100, L501.2300 ####[facility] [address] [place], [address] D-Dimer Quantitative (DVT/PE )on 07-16-2024 D-DIMER QUANT 0.27 FEU/ug/m Normal 0.27-0.49 [facility] Comment on above: Result Comment: NORM AL D-Dimer level (<0.50) indicates no DVT or PE. Performed By: #### L 300.8000 ####[facility] [address] [place], [address] D-dimer measurement for deep venous thrombosisOrdered By: Beck Tidwell on 07-16-2024 D-Dimer Quantitative (PE/DVT) 0.27 FEU/ug/m 0.27-0.49 [facility] Comment on above: NORMAL D-Dimer level (<0.50) indicates no DVT or PE. D-dimer measurement for deep venous thrombosis 0.27 FEU/ug/m 0.27-0.49 [facility] Determination of fraction of inspired oxygenOrdered By: Beck Tidwell on 07-16-2024 Blood Gas Oxygen Percent 30.0 [facility] Determination of fraction of inspired oxygen 30.0 [facility] Folates, (Folic Acid)on 07-05 FOLATES 11.00 ng/mL Normal 3.1-55.4 [facility] Comment on above: Order Comment: Has P atient had X-rays with Contrast this admission? [place] Result Comment: Slig ht Hemolysis, Result may be falsely increased. Performed By: #### L 501.9100, L501.9520, L505.5000, L506.0250, L503.6620, L503.0105 ####[facility] [address] [place], [address] Laboratory - Chemistry and C hemistry - challengeOrdered By: Beck Tidwell on 07-16-2024 AST [Catalytic activity/Vol] 12 U/L Low 15-37 [facility] Magnesiumon 07-16-2024 Magnesium [Mass/Vol] 2.3 mg/dL Normal 1.6-2.6 [facility] Comment on above: Performed By: #### L 501.5200, L500.4050, L100.0100, L501.2300 ####[facility] [address] [place], [address] Measurement, pHOrdered By: Jan Tidwell on 07-16-2024 pH (Unsp spec) 7.33 [pH] Low 7.35-7.45 [facility] No Panel InformationOrdered By: Beck Tidwell on 07-16-2024 Bedside Blood Gas PEEP 10 [facility] Bld Gas Crit Called To/Read Back By Yes [facility] Bld Gas Peak Inspiratory Pressure 24 [facility] Blood Gas Respiration Rate 20 [facility] Blood Gas Sample Site L Radial [facility] Blood Gas Specimen Type ART [facility] Blood Gas Tidal Volume 550.0 mL [facility] Blood Gas Vent Mode Not entered [facility] Oxygen Delivery Device BiPAP [facility] ART [facility] L Radial [facility] Not entered [facility] BiPAP [facility] 550.0 mL [facility] 24 [facility] 20 [facility] 10 [facility] Yes [facility] 12 U/L Low 15-37 [facility] Oxygen saturation measuremen tOrdered By: Beck Tidwell on 07-16-2024 Blood Gas Oxygen Saturation 93 % Low 95-99 [facility] Oxygen saturation measurement 93 % Low 95-99 [facility] Partial pressure of carbon d ioxide measurementOrdered By: Beck Tidwell on 07-16-2024 Arterial Blood Partial Pressure CO2 75.8 mmHg High 35-45 [facility] Partial pressure of carbon dioxide measurement 75.8 mmHg High 35-45 [facility] Partial pressure of oxygen m easurementOrdered By: Beck Tidwell on 07-16-2024 Arterial Blood Partial Pressure O2 77 mmHG 75-100 [facility] Partial pressure of oxygen measurement 77 mmHG 75-100 [facility] Phosphoruson 07-16-2024 Phosphate [Mass/Vol] 1.6 mg/dL Low 2.5-4.9 [facility] Comment on above: Performed By: #### L 501.5200, L500.4050, L100.0100, L501.2300 ####[facility] [address] [place], [place], [id number] RESPIRATORY PANEL MOLECULARo n 07-16-2024 RP PANEL Normal [facility] Comment on above: Performed By: #### M 100.638 ####[facility] [address] [place], [place], [address] Serum globulin measurementOr dered By: Beck Tidwell on 07-16-2024 Globulin (S) [Mass/Vol] 3.0 g/dL 2.2-4.2 [facility] Serum globulin measurement 3.0 g/dL 2.2-4.2 [facility] Serum or plasma alanine guerrero otransferase (ALT) measurementOrdered By: Beck Tidwell on 07-16-2024 ALT [Catalytic activity/Vol] 16 U/L 13-56 [facility] Serum or plasma albumin marisela urement (mass/volume)Ordered By: Beck Tidwell on 07-16-2024 Albumin [Mass/Vol] 3.1 g/dL Low 3.2-5.0 [facility] Serum or plasma alkaline shaheen sphatase measurementOrdered By: Beck Tidwell on 07-16-2024 ALP [Catalytic activity/Vol] 83 U/L 45-117 [facility] Thyroid Stim Hormone (TSH)on 07-16-2024 TSH 0.474 uIU/mL Normal 0.358-3.740 [facility] Comment on above: Order Comment: Has P atient had X-rays with Contrast this admission? N Performed By: #### L 501.9100, L501.9520, L505.5000, L506.0250, L503.6620, L503.0105 ####[facility] [address] [place], [place], [id number] Total carbon dioxide measure mentOrdered By: Beck Tidwell on 07-16-2024 Blood Gas Total CO2 42 mmol/L [facility] CO2 [Moles/Vol] 42 mmol/L [facility] Total carbon dioxide measurement 42 mmol/L [facility] Total proteinOrdered By: Richardson Tidwell on 07-16-2024 Protein [Mass/Vol] 6.1 g/dL Low 6.4-8.2 [facility] Total protein 6.1 g/dL Low 6.4-8.2 [facility] Vitamin B12on 07-16-2024 Cobalamin (Vitamin B12) [Mass/Vol] 301 pg/mL Normal 211-911 [facility] Comment on above: Performed By: #### L 501.9100, L501.9520, L505.5000, L506.0250, L503.6620, L503.0105 ####[facility] [address] [place], [place], [id number] pH (Unsp spec)Ordered By: Arias Tidwell on 07-16-2024 Blood Gas pH 7.33 Low 7.35-7.45 [facility] Measurement, pH 7.33 Low 7.35-7.45 [facility] 12 Lead EKGon 07-15-2024 12 Lead EKG Normal [facility] Activated partial thrombopla stin time (aPTT) in platelet poor plasma by coagulation aOrdered By: Junior Salter on 07-15-2024 aPTT Coag (PPP) [Time] 21.0 s Low 24.1-36.2 [facility] BNP (brain natriuretic pepti de measurement)Ordered By: Beck Tidwell on 07-15-2024 Natriuretic peptide B (Bld) [Mass/Vol] 124.0 pg/mL High 0-100 [facility] BNP (brain natriuretic peptide measurement) 124.0 pg/mL High 0-100 [facility] Base excess Calc (BldV) [Mol es/Vol]Ordered By: Junior Salter on 07-15-2024 Venous Blood Base Excess 12 mmol/L High -1.0-3.5 [facility] Venous blood base excess measurement 12 mmol/L High -1.0-3.5 [facility] Basic Metabolic Profile (BMP )on 07-15-2024 BUN/CRE 19.3 RATIO Normal 10-20 [facility] Comment on above: Performed By: #### L 100.0100, L500.2500, L300.4310, L300.3900 ####[facility] [address] [place], [address] CA,Total 8.8 mg/dL Normal 8.5-10.1 [facility] Comment on above: Performed By: #### L 100.0100, L500.2500, L300.4310, L300.3900 ####[facility] [address] [place], [address] Chloride [Moles/Vol] 98 mmol/L Normal 98-107 [facility] Comment on above: Performed By: #### L 100.0100, L500.2500, L300.4310, L300.3900 ####[facility] [address] [place], [address] CO2 [Moles/Vol] 33.0 mmol/L High 21.0-32.0 [facility] Comment on above: Performed By: #### L 100.0100, L500.2500, L300.4310, L300.3900 ####[facility] [address] [place], [address] Creatinine [Mass/Vol] 0.83 mg/dL Normal 0.55-1.02 [facility] Comment on above: Result Comment: The validity of the calculated GFR GFRAA in patients over70 years has not been determined. Clinical correlation isessential. Performed By: #### L 100.0100, L500.2500, L300.4310, L300.3900 ####[facility] [address] [place], [address] ECRCL 95.41 ml/min Normal [facility] Comment on above: Performed By: #### L 100.0100, L500.2500, L300.4310, L300.3900 ####[facility] [address] [place], [address] EST GFR - AA 90 mL/min Normal >60 [facility] Comment on above: Result Comment: Afri can Maltese GFR Calc Performed By: #### L 100.0100, L500.2500, L300.4310, L300.3900 ####[facility] [address] [place], [address] GAP 5 Normal 5-15 [facility] Comment on above: Performed By: #### L 100.0100, L500.2500, L300.4310, L300.3900 ####[facility] [address] [place], [address] GFR/1.73 sq M.predicted among non-blacks MDRD (S/P/Bld) [Vol rate/Area] 74 mL/min/{1.73_m2} Normal >60 [facility] Comment on above: Result Comment: Non- GFR Calc Performed By: #### L 100.0100, L500.2500, L300.4310, L300.3900 ####[facility] [address] [place], [address] Glucose [Mass/Vol] 157 mg/dL High 74-106 [facility] Comment on above: Result Comment: Fast ing Glucose result greater than or equal to 126 mg/dLsuggests DIABETES MELLITUS per A.D.A. criteria. Performed By: #### L 100.0100, L500.2500, L300.4310, L300.3900 ####[facility] [address] [place], [address] Potassium [Moles/Vol] 4.4 mmol/L Normal 3.5-5.1 [facility] Comment on above: Result Comment: Slig ht Hemolysis, Result may be falsely increased. Performed By: #### L 100.0100, L500.2500, L300.4310, L300.3900 ####[facility] [address] [place], [address] Sodium [Moles/Vol] 136 mmol/L Normal 136-145 [facility] Comment on above: Performed By: #### L 100.0100, L500.2500, L300.4310, L300.3900 ####[facility] [address] [place], [address] Urea nitrogen [Mass/Vol] 16 mg/dL Normal 7-18 [facility] Comment on above: Performed By: #### L 100.0100, L500.2500, L300.4310, L300.3900 ####[facility] [address] [place], [address] Blood Gases by [facility] 025 ADI TEST Positive Normal [facility] Comment on above: Performed By: #### L 9000.0800 ####[facility] [address] [place], [address] Base excess Calc (Bld) [Moles/Vol] 12 mmol/L High -2 to +2 [facility] Comment on above: Performed By: #### L 9000.0800 ####[facility] [address] [place], [address] Blood Gas Type ART [facility] Comment on above: Performed By: #### L 9000.0800 ####[facility] [address] [place], [address] CO2 [Moles/Vol] 42 mmol/L Normal [facility] Comment on above: Performed By: #### L 0.0800 ####[facility] [address] [place], [address] FI02 3.0 Normal [facility] Comment on above: Performed By: #### L 9000.0800 ####[facility] [address] [place], [address] HCO3 (Bld) [Moles/Vol] 38.9 mmol/L High 22-26 [facility] Comment on above: Performed By: #### L 9000.0800 ####[facility] [address] [place], [address] Mode Not entered [facility] Comment on above: Performed By: #### L 9000.0800 ####[facility] [address] [place], [address] O2 Delivery Dev Not entered [facility] Comment on above: Performed By: #### L 0.0800 ####[facility] [address] [place], [address] pCO2 88.0 mmHg Invalid Interpretation Code 35-45 [facility] Comment on above: Performed By: #### L 9000.0800 ####[facility] [address] [place], [address] pH (Bld) 7.25 [pH] Low 7.35-7.45 [facility] Comment on above: Performed By: #### L 9000.0800 ####[facility] [address] [place], [address] PO2 74 mmHG Low 75-100 [facility] Comment on above: Performed By: #### L 9000.0800 ####[facility] [address] [place], [address] Read Back By Yes Normal [facility] Comment on above: Performed By: #### L 9000.0800 ####[facility] [address] [place], [address] SITE L Radial Normal [facility] Comment on above: Performed By: #### L 9000.0800 ####[facility] [address] [place], [address] SO2 91 Low 95-99 [facility] Comment on above: Performed By: #### L 9000.0800 ####[facility] [address] [place], [address] CBC W/Diff, Automatedon 02- Absolute Lymph 0.77 X10 3/uL Low 0.83-4.51 [facility] Comment on above: Performed By: #### L 100.0100, L500.2500, L300.4310, L300.3900 ####[facility] [address] [place], [address] Absolute Neut 5.6 X10 3/uL Normal 2.0-7.7 [facility] Comment on above: Performed By: #### L 100.0100, L500.2500, L300.4310, L300.3900 ####[facility] [address] [place], [address] Basophils/100 WBC (Bld) 0.3 % Normal 0-1 [facility] Comment on above: Performed By: #### L 100.0100, L500.2500, L300.4310, L300.3900 ####[facility] [address] [place], [address] Eosinophils/100 WBC (Bld) 0.7 % Normal 0-5 [facility] Comment on above: Performed By: #### L 100.0100, L500.2500, L300.4310, L300.3900 ####[facility] [address] [place], [address] Erythrocyte distribution width (RBC) [Ratio] 14.0 % Normal 11.6-14.6 [facility] Comment on above: Performed By: #### L 100.0100, L500.2500, L300.4310, L300.3900 ####[facility] [address] [place], [address] Hematocrit (Bld) [Volume fraction] 36.4 % Low 37-47 [facility] Comment on above: Performed By: #### L 100.0100, L500.2500, L300.4310, L300.3900 ####[facility] [address] [place], [address] Hemoglobin (Bld) [Mass/Vol] 10.3 g/dL Low 12.0-15.0 [facility] Comment on above: Performed By: #### L 100.0100, L500.2500, L300.4310, L300.3900 ####[facility] [address] [place], [address] IG% 0.400 Normal 0.0-0.9 [facility] Comment on above: Result Comment: IG% - Immature Granulocytes (promyelocytes, myelocytes andmetamyelocytes) > 1% indicates that a LEFT SHIFT is Present. Performed By: #### L 100.0100, L500.2500, L300.4310, L300.3900 ####[facility] [address] [place], [address] Lymphocytes/100 WBC (Bld) 10.8 % Low 19-41 [facility] Comment on above: Performed By: #### L 100.0100, L500.2500, L300.4310, L300.3900 ####[facility] [address] [place], [address] MCH (RBC) [Entitic mass] 27.8 pg Normal 27.0-32.0 [facility] Comment on above: Performed By: #### L 100.0100, L500.2500, L300.4310, L300.3900 ####[facility] [address] [place], [address] MCHC (RBC) [Mass/Vol] 28.3 g/dL Low 32-36 [facility] Comment on above: Performed By: #### L 100.0100, L500.2500, L300.4310, L300.3900 ####[facility] [address] [place], [address] MCV (RBC) [Entitic vol] 98.1 fL Normal 81-99 [facility] Comment on above: Performed By: #### L 100.0100, L500.2500, L300.4310, L300.3900 ####[facility] [address] [place], [address] Monocytes/100 WBC (Bld) 9.6 % Normal 0-10 [facility] Comment on above: Performed By: #### L 100.0100, L500.2500, L300.4310, L300.3900 ####[facility] [address] [place], [address] Neutrophils/100 WBC (Bld) 78.2 % High 47-70 [facility] Comment on above: Performed By: #### L 100.0100, L500.2500, L300.4310, L300.3900 ####[facility] [address] [place], [address] Nucleated RBC (Bld) [#/Vol] 0 10*3/uL Normal 0-5 [facility] Comment on above: Performed By: #### L 100.0100, L500.2500, L300.4310, L300.3900 ####[facility] [address] [place], [address] Platelet mean volume (Bld) [Entitic vol] 9.2 fL Normal 6.2-12.0 [facility] Comment on above: Performed By: #### L 100.0100, L500.2500, L300.4310, L300.3900 ####[facility] [address] [place], [address] Platelets (Bld) [#/Vol] 184 10*3/uL Normal 150-450 [facility] Comment on above: Performed By: #### L 100.0100, L500.2500, L300.4310, L300.3900 ####[facility] [address] [place], [address] RBC (Bld) [#/Vol] 3.71 10*6/uL Low 4.2-5.4 [facility] Comment on above: Performed By: #### L 100.0100, L500.2500, L300.4310, L300.3900 ####[facility] [address] [place], [address] RDW SD 50.2 fl High 35.1-43.9 [facility] Comment on above: Performed By: #### L 100.0100, L500.2500, L300.4310, L300.3900 ####[facility] [address] [place], [address] WBC (Bld) [#/Vol] 7.2 10*3/uL Normal 4.4-11.0 [facility] Comment on above: Performed By: #### L 100.0100, L500.2500, L300.2610, L300.4600 ####[facility] [address] [place], [address] CO2 (BldV) [Moles/Vol]Ordere d By: Junior Salter on 07-15-2024 CO2 [Moles/Vol] 41 mmol/L High 23-33 [facility] Venous blood total carbon dioxide measurement 41 mmol/L High 23-33 [facility] CO2 (BldV) [Partial pressure ]Ordered By: Junior Salter on 07-15-2024 Bed Mix Venous Bld PCO2 at Pat Temp 75.1 mmHg High 41-51 [facility] Venous blood partial pressure of carbon dioxide measurement 75.1 mmHg High 41-51 [facility] Chest 1 View (Portable)on Chest 1 View (Portable) Normal [facility] Emergency Department Summary on 07-15-2024 Emergency Department Summary Normal [facility] Folic acid measurementOrdere d By: Beck Tidwell on 07-15-2024 Folate 11.00 ng/mL 3.1-55.4 [facility] Comment on above: Slight Hemolysis, Re sult may be falsely increased. Folic acid measurement 11.00 ng/mL 3.1-55.4 [facility] H AND P Exam - Hospitaliston 07-15-2024 H&P Exam - Hospitalist Normal [facility] International normalized rat io (INR) calculationOrdered By: Junior Salter on 07-15-2024 INR Coag (Bld) [Relative time] 0.8 {INR} [facility] International normalized ratio (INR) calculation 0.8 [facility] No Panel InformationOrdered By: Junior Salter on 07-15-2024 Blood Gas Notified Time 18:37:08 [facility] 18:37:08 [facility] Oxygen (BldV) [Partial press ure]Ordered By: Junior Salter on 07-15-2024 Venous Blood Partial Pressure O2 32 mmHg 25-40 [facility] Venous blood partial pressure of oxygen measurement 32 mmHg 25-40 [facility] Partial Thromboplast Timeon 07-15-2024 aPTT Coag (Bld) [Time] 21.0 s Low 24.1-36.2 [facility] Comment on above: Performed By: #### L 100.0100, L500.2500, L300.4310, L300.3900 ####[facility] [address] [place], [address] Prothrombin Time w/INRon INR Coag (PPP) [Relative time] 0.8 {INR} Normal [facility] Comment on above: Performed By: #### L 100.0100, L500.2500, L300.4310, L300.3900 ####[facility] [address] [place], [address] PT Coag (PPP) [Time] 11.1 s Low 11.7-14.9 [facility] Comment on above: Performed By: #### L 100.0100, L500.2500, L300.4310, L300.3900 ####[facility] [address] [place], [address] Prothrombin timeOrdered By: Junior Salter on 07-15-2024 PT Coag (PPP) [Time] 11.1 s Low 11.7-14.9 [facility] Prothrombin time 11.1 SECONDS Low 11.7-14.9 [facility] Respiratory pathogens DNA an d RNA panel MARY+probe (Resp)Ordered By: Beck Tidwell on 07-15-2024 Respiratory Panel (PCR) [facility] Respiratory pathogens detect ion panel by molecular detection methodOrdered By: Beck Tidwell on 07-15-2024 Respiratory pathogens DNA and RNA panel MARY+probe (Resp) [facility] Serum ethanol measurementOrd ered By: Beck Tidwell on 07-15-2024 Ethyl Alcohol Level < 3.0 mg/dL [facility] Comment on above: The serum:whole bloo d ethanol ratio is approximately 1.14and varies slightly with hematocrit. Medical Alcohol reference interval and critical value innon-tolerant individuals; 50 - 100 Impairment 100 Intoxication 100 - 250 Severe Poisoning 250 - 400 Deep/possible fatal coma Serum ethanol measurement < 3.0 mg/dL [facility] Serum or plasma thyroid stim ulating hormone (TSH) measurement (units/volume)Ordered By: Bcek Tidwell on 07-15-2024 TSH Qn 0.474 uIU/mL 0.358-3.740 [facility] TSH QnOrdered By: Beck kpalan on 07-15-2024 Thyroid Stimulating Hormone (TSH) 0.474 uIU/mL 0.358-3.740 [facility] Serum or plasma thyroid stimulating hormone (TSH) measurement (units/volume) 0.474 uIU/mL 0.358-3.740 [facility] Urine Drug Screen (VISTA)on 07-15-2024 AMPHETAMINES Normal <1000 ng/mL [facility] Comment on above: Order Comment: SENT LABEL TO [facility] COL[facility] Result Comment: ANDIE ENT DISCHARGED Performed By: #### L 501.9100, L501.9520, L505.5000, L506.0250, L503.6620, L503.0105 ####[facility] [address] [place], [place], [id number] BARBITIURATES Normal < 200 ng/mL [facility] Comment on above: Order Comment: SENT LABEL TO TX3 TO COLLECT Result Comment: ANDIE ENT DISCHARGED Performed By: #### L 501.9100, L501.9520, L505.5000, L506.0250, L503.6620, L503.0105 ####[facility] [address] [place], [place], [phone] BENZODIAZIPINE Normal < 200 ng/mL [facility] Comment on above: Order Comment: SENT LABEL TO TX3 TO COLLECT Result Comment: ANDIE ENT DISCHARGED Performed By: #### L 501.9100, L501.9520, L505.5000, L506.0250, L503.6620, L503.0105 ####[facility] [address] [place], [place], [phone] COCAINE Normal < 300 ng/mL [facility] Comment on above: Order Comment: SENT LABEL TO MS3 TO COLLECT Result Comment: ANDIE ENT DISCHARGED Performed By: #### L 501.9100, L501.9520, L505.5000, L506.0250, L503.6620, L503.0105 ####[facility] [address] [place], [address] DRUG CONFIRM Normal [facility] Comment on above: Order Comment: SENT LABEL TO MS3 TO COLLECT Result Comment: ANDIE ENT DISCHARGED Performed By: #### L 501.9100, L501.9520, L505.5000, L506.0250, L503.6620, L503.0105 ####[facility] [address] [place], [address] ECSTACY Normal < 500 ng/mL [facility] Comment on above: Order Comment: SENT LABEL TO TX3 TO COLLECT Result Comment: ANDIE ENT DISCHARGED Performed By: #### L 501.9100, L501.9520, L505.5000, L506.0250, L503.6620, L503.0105 ####[facility] [address] [place], [phone] METHADONE Normal < 300 ng/mL [facility] Comment on above: Order Comment: SENT LABEL TO MS3 TO COLLECT Result Comment: ANDIE ENT DISCHARGED Performed By: #### L 501.9100, L501.9520, L505.5000, L506.0250, L503.6620, L503.0105 ####[facility] [address] [place], [address] OPIATES Normal < 300 ng/mL [facility] Comment on above: Order Comment: SENT LABEL TO TX3 TO COLLECT Result Comment: ANDIE ENT DISCHARGED Performed By: #### L 501.9100, L501.9520, L505.5000, L506.0250, L503.6620, L503.0105 ####[facility] [address] [place], [address] PCP Normal < 25 ng/mL [facility] Comment on above: Order Comment: SENT LABEL TO MS3 TO COLLECT Result Comment: ANDIE ENT DISCHARGED Performed By: #### L 501.9100, L501.9520, L505.5000, L506.0250, L503.6620, L503.0105 ####[facility] [address] [place], [address] THC Normal < 50 ng/mL [facility] Comment on above: Order Comment: SENT LABEL TO MS3 TO COLLECT Result Comment: ANDIE ENT DISCHARGED Performed By: #### L 501.9100, L501.9520, L505.5000, L506.0250, L503.6620, L503.0105 ####[facility] [address] [place], [address] VISTA UDS PH Normal [facility] Comment on above: Order Comment: SENT LABEL TO MS3 TO COLLECT Result Comment: ANDIE ENT DISCHARGED Performed By: #### L 501.9100, L501.9520, L505.5000, L506.0250, L503.6620, L503.0105 ####[facility] [address] [place], [address] Venous Blood Gason 5 Blood Gas Type MARGUERITE Normal [facility] Comment on above: Performed By: #### L 9000.0810 ####[facility] [address] [place], [address] CO2 [Moles/Vol] 41 mmol/L High 23-33 [facility] Comment on above: Performed By: #### L 9000.0810 ####[facility] [address] [place], [address] HCO3 (Bld) [Moles/Vol] 39 mmol/L High 22-26 [facility] Comment on above: Performed By: #### L 9000.0810 ####[facility] [address] [place], [address] O2 Delivery Dev Not entered Normal [facility] Comment on above: Performed By: #### L 9000.0810 ####[facility] [address] [place], [address] Read Back By Yes Normal [facility] Comment on above: Performed By: #### L 9000.0810 ####[facility] [address] [place], [address] SITE Not entered Normal [facility] Comment on above: Performed By: #### L 9000.0810 ####[facility] [address] [place], [address] Time Given 18:37:08 Normal [facility] Comment on above: Performed By: #### L 9000.0810 ####[facility] [address] [place], [address] VBG BE 12 mmol/L High -1.0-3.5 [facility] Comment on above: Performed By: #### L 9000.0810 ####[facility] [address] [place], [address] VBG pCO2 75.1 mmHg Invalid Interpretation Code 41-51 [facility] Comment on above: Performed By: #### L 9000.0810 ####[facility] [address] [place], [address] VBG pH 7.32 Normal 7.32-7.42 [facility] Comment on above: Performed By: #### L 9000.0810 ####[facility] [address] [place], [address] VBG PO2 32 mmHg Normal 25-40 [facility] Comment on above: Performed By: #### L 9000.0810 ####[facility] [address] [place], [address] VBG SO2 53 Normal 50-70 [facility] Comment on above: Performed By: #### L 9000.0810 ####[facility] [address] [place], [place], [id number] Venous blood base excess yulia surementOrdered By: Junior Salter on 07-15-2024 Base excess Calc (BldV) [Moles/Vol] 12 mmol/L High -1.0-3.5 [facility] Venous blood bicarbonate yulia surementOrdered By: Junior Salter on 07-15-2024 HCO3 (Bld) [Moles/Vol] 39 mmol/L High 22-26 [facility] Venous blood bicarbonate measurement 39 mmol/L High 22-26 [facility] Venous blood oxygen saturati on measurementOrdered By: Junior Salter on 07-15-2024 Oxygen saturation in Blood 53 % 50-70 [facility] Venous blood oxygen saturation measurement 53 % 50-70 [facility] Venous blood pH measurementO rdered By: Junior Salter on 07-15-2024 pH (BldV) 7.32 [pH] 7.32-7.42 [facility] Venous blood partial pressur e of carbon dioxide measurementOrdered By: Junior Salter on 07-15-2024 CO2 (BldV) [Partial pressure] 75.1 mm[Hg] High 41-51 [facility] Venous blood partial pressur e of oxygen measurementOrdered By: Junior Salter on 07-15-2024 Oxygen (BldV) [Partial pressure] 32 mm[Hg] 25-40 [facility] Vitamin B12 measurementOrder ed By: Beck Tidwell on 07-15-2024 Cobalamin (Vitamin B12) [Mass/Vol] 301 pg/mL [facility] Vitamin B12 measurement 301 pg/mL [facility] aPTT Coag (PPP) [Time]Ordere d By: Junior Salter on 07-15-2024 aPTT Coag (Bld) [Time] 21.0 s Low 24.1-36.2 [facility] Activated partial thromboplastin time (aPTT) in platelet poor plasma by coagulation a 21.0 Seconds Low 24.1-36.2 [facility] pH (BldV)Ordered By: Junior echevarria on 07-15-2024 Venous Blood pH 7.32 7.32-7.42 [facility] Venous blood pH measurement 7.32 7.32-7.42 [facility] Absolute lymphocyte countOrd ered By: ED PROVIDER on 07-13-2024 Lymphocytes Auto (Unsp spec) [#/Vol] 0.96 10*3/uL 0.83-4.51 [facility] Absolute neutrophil countOrd ered By: ED PROVIDER on 07-13-2024 Neutrophils (Bld) [#/Vol] 2.9 10*3/uL 2.0-7.7 [facility] Absolute neutrophil count 2.9 X10^3/uL 2.0-7.7 [facility] Automated lymphocyte count a s percentage of total leukocytesOrdered By: ED PROVIDER on 07-13-2024 Lymphocytes/100 WBC Auto (Unsp spec) 22.2 % 19-41 [facility] Bacteria LM.HPF (Urine sed) [#/Area]Ordered By: Kendall Dsouza on 07-13-2024 Urine sediment bacteria count by microscopy (number/high power field) 0 SEEN /hpf None Seen [facility] Basic Metabolic Profile (BMP )on 07-13-2024 BUN/CRE 29.1 RATIO High 10-20 [facility] Comment on above: Performed By: #### L 500.2500, L100.0100 ####[facility] [address] [place], [address] CA,Total 9.2 mg/dL Normal 8.5-10.1 [facility] Comment on above: Performed By: #### L 500.2500, L100.0100 ####[facility] [address] [place], [address] Chloride [Moles/Vol] 99 mmol/L Normal 98-107 [facility] Comment on above: Performed By: #### L 500.2500, L100.0100 ####[facility] [address] [place], [address] CO2 [Moles/Vol] 32.0 mmol/L Normal 21.0-32.0 [facility] Comment on above: Performed By: #### L 500.2500, L100.0100 ####[facility] [address] [place], [address] Creatinine [Mass/Vol] 0.90 mg/dL Normal 0.55-1.02 [facility] Comment on above: Result Comment: The validity of the calculated GFR GFRAA in patients over70 years has not been determined. Clinical correlation isessential. Performed By: #### L 500.2500, L100.0100 ####[facility] [address] [place], [address] EST GFR - AA 82 mL/min Normal >60 [facility] Comment on above: Result Comment: Afri can Maltese GFR Calc Performed By: #### L 500.2500, L100.0100 ####[facility] [address] [place], [address] GAP 6 Normal 5-15 [facility] Comment on above: Performed By: #### L 500.2500, L100.0100 ####[facility] [address] [place], [address] GFR/1.73 sq M.predicted among non-blacks MDRD (S/P/Bld) [Vol rate/Area] 68 mL/min/{1.73_m2} Normal >60 [facility] Comment on above: Result Comment: Non- GFR Calc Performed By: #### L 500.2500, L100.0100 ####[facility] [address] [place], [address] Glucose [Mass/Vol] 205 mg/dL High 74-106 [facility] Comment on above: Result Comment: Gluc ose result greater than or equal to 200 mg/dLsuggests DIABETES MELLITUS per A.D.A. criteria. Performed By: #### L 500.2500, L100.0100 ####[facility] [address] [place], [address] Potassium [Moles/Vol] 4.4 mmol/L Normal 3.5-5.1 [facility] Comment on above: Performed By: #### L 500.2500, L100.0100 ####[facility] [address] [place], [address] Sodium [Moles/Vol] 138 mmol/L Normal 136-145 [facility] Comment on above: Performed By: #### L 500.2500, L100.0100 ####[facility] [address] [place], [address] Urea nitrogen [Mass/Vol] 26 mg/dL High - [facility] Comment on above: Performed By: #### L 500.2500, L100.0100 ####[facility] [address] [place], [address] Basophil percentageOrdered B y: ED PROVIDER on 07-13-2024 Basophils/100 WBC (Bld) 0.2 % 0-1 [facility] Basophil percentage 0.2 % 0-1 [facility] Bilirubin Test strip Ql (U)O rdered By: Kendall Dsouza on 07-13-2024 Bilirubin Ql (U) Negative Negative [facility] Blood urea nitrogen (BUN)/cr eatinine ratioOrdered By: ED PROVIDER on 07-13-2024 Urea nitrogen/Creatinine [Mass ratio] 29.1 mg/mg High 10- [facility] Blood urea nitrogen (BUN)/creatinine ratio 29.1 RATIO High - [facility] Brain/Head without Contrasto n 07-13-2024 Brain/Head without Contrast Normal [facility] CBC W/Diff, Automatedon Absolute Lymph 0.96 X10 3/uL Normal 0.83-4.51 [facility] Comment on above: Performed By: #### L 500.2500, L100.0100 ####[facility] [address] [place], [address] Absolute Neut 2.9 X10 3/uL Normal 2.0-7.7 [facility] Comment on above: Performed By: #### L 500.2500, L100.0100 ####[facility] [address] [place], [address] Basophils/100 WBC (Bld) 0.2 % Normal 0-1 [facility] Comment on above: Performed By: #### L 500.2500, L100.0100 ####[facility] [address] [place], [address] Eosinophils/100 WBC (Bld) 1.6 % Normal 0-5 [facility] Comment on above: Performed By: #### L 500.2500, L100.0100 ####[facility] [address] [place], [address] Erythrocyte distribution width (RBC) [Ratio] 13.4 % Normal 11.6-14.6 [facility] Comment on above: Performed By: #### L 500.2500, L100.0100 ####[facility] [address] [place], [address] Hematocrit (Bld) [Volume fraction] 34.5 % Low 37-47 [facility] Comment on above: Performed By: #### L 500.2500, L100.0100 ####[facility] [address] [place], [address] Hemoglobin (Bld) [Mass/Vol] 10.0 g/dL Low 12.0-15.0 [facility] Comment on above: Performed By: #### L 500.2500, L100.0100 ####[facility] [address] [place], [address] IG% 0.500 Normal 0.0-0.9 [facility] Comment on above: Result Comment: IG% - Immature Granulocytes (promyelocytes, myelocytes andmetamyelocytes) > 1% indicates that a LEFT SHIFT is Present. Performed By: #### L 500.2500, L100.0100 ####[facility] [address] [place], [address] Lymphocytes/100 WBC (Bld) 22.2 % Normal 19-41 [facility] Comment on above: Performed By: #### L 500.2500, L100.0100 ####[facility] [address] [place], [address] MCH (RBC) [Entitic mass] 28.3 pg Normal 27.0-32.0 [facility] Comment on above: Performed By: #### L 500.2500, L100.0100 ####[facility] [address] [place], [address] MCHC (RBC) [Mass/Vol] 29.0 g/dL Low 32-36 [facility] Comment on above: Performed By: #### L 500.2500, L100.0100 ####[facility] [address] [place], [address] MCV (RBC) [Entitic vol] 97.7 fL Normal 81-99 [facility] Comment on above: Performed By: #### L 500.2500, L100.0100 ####[facility] [address] [place], [address] Monocytes/100 WBC (Bld) 9.3 % Normal 0-10 [facility] Comment on above: Performed By: #### L 500.2500, L100.0100 ####[facility] [address] [place], [address] Neutrophils/100 WBC (Bld) 66.2 % Normal 47-70 [facility] Comment on above: Performed By: #### L 500.2500, L100.0100 ####[facility] [address] [place], [address] Nucleated RBC (Bld) [#/Vol] 0 10*3/uL Normal 0-5 [facility] Comment on above: Performed By: #### L 500.2500, L100.0100 ####[facility] [address] [place], [address] Platelet mean volume (Bld) [Entitic vol] 9.1 fL Normal 6.2-12.0 [facility] Comment on above: Performed By: #### L 500.2500, L100.0100 ####[facility] [address] [place], [address] Platelets (Bld) [#/Vol] 215 10*3/uL Normal 150-450 [facility] Comment on above: Performed By: #### L 500.2500, L100.0100 ####[facility] [address] [place], [address] RBC (Bld) [#/Vol] 3.53 10*6/uL Low 4.2-5.4 [facility] Comment on above: Performed By: #### L 500.2500, L100.0100 ####[facility] [address] [place], [address] RDW SD 48.3 fl High 35.1-43.9 [facility] Comment on above: Performed By: #### L 500.2500, L100.0100 ####[facility] [address] [place], [address] WBC (Bld) [#/Vol] 4.3 10*3/uL Low 4.4-11.0 [facility] Comment on above: Performed By: #### L 500.2500, L100.0100 ####[facility] [address] [place], [address] Calcium [Mass/Vol]Ordered By : ED PROVIDER on 07-13-2024 Serum or plasma calcium measurement (mass/volume) 9.2 mg/dL 8.5-10.1 [facility] Carbon dioxide measurementOr dered By: ED PROVIDER on 07-13-2024 CO2 [Moles/Vol] 32.0 mmol/L 21.0-32.0 [facility] Carbon dioxide measurement 32.0 mmol/L 21.0-32.0 [facility] Chest 1 View (Portable)on Chest 1 View (Portable) Normal [facility] Chest 1 View (Portable) Normal [facility] Chloride measurementOrdered By: ED PROVIDER on 07-13-2024 Chloride [Moles/Vol] 99 mmol/L 98-107 [facility] Chloride measurement 99 mmol/L 98-107 [facility] Clarity (U)Ordered By: Kendall Dsouza on 07-13-2024 Urine clarity Clear Clear [facility] Color (U)Ordered By: Kendall phelps on 07-13-2024 Urine color determination Yellow Yellow [facility] Creatinine [Mass/Vol]Ordered By: ED PROVIDER on 07-13-2024 Serum or plasma creatinine measurement (mass/volume) 0.90 mg/dL 0.55-1.02 [facility] Emergency Department Summary on 07-13-2024 Emergency Department Summary Normal [facility] Eosinophil percentageOrdered By: ED PROVIDER on 07-13-2024 Eosinophils/100 WBC (Bld) 1.6 % 0-5 [facility] Eosinophil percentage 1.6 % 0-5 [facility] Epithelial cells.squamous LM Ql (Urine sed)Ordered By: Kendall Dsouza on 07-13-2024 Epithelial cells.squamous LM.HPF (Urine sed) [#/Area] 0 /[HPF] 5-10 [facility] Erythrocyte distribution wid th (RBC) [Entitic vol]Ordered By: ED PROVIDER on 07-13-2024 Erythrocyte distribution width standard deviation 48.3 fl High 35.1-43.9 [facility] Erythrocyte distribution wid th (RBC) [Ratio]Ordered By: ED PROVIDER on 07-13-2024 Erythrocyte distribution width ratio 13.4 % 11.6-14.6 [facility] Erythrocyte distribution wid th ratioOrdered By: ED PROVIDER on 07-13-2024 Erythrocyte distribution width (RBC) [Ratio] 13.4 % 11.6-14.6 [facility] Erythrocyte distribution wid th standard deviationOrdered By: ED PROVIDER on 07-13-2024 Erythrocyte distribution width (RBC) [Entitic vol] 48.3 fL High 35.1-43.9 [facility] Erythrocyte distribution width (RBC) [Ratio] 48.3 fl High 35.1-43.9 [facility] Estimated glomerular filtrat ion rate (GFR) AmericanOrdered By: ED PROVIDER on 07-13-2024 Estimated GFR (MDRD) Amer 82 mL/min >60 [facility] Comment on above: GFR Calc Estimated glomerular filtration rate (GFR) 82 mL/min >60 [facility] Glomerular filtration rate ( GFR) estimationOrdered By: ED PROVIDER on 07-13-2024 Estimated GFR (MDRD) Non-Af Amer 68 mL/min >60 [facility] Comment on above: Non- GFR Calc GFR/1.73 sq M.predicted among non-blacks MDRD (S/P/Bld) [Vol rate/Area] 68 mL/min/{1.73_m2} >60 [facility] Glomerular filtration rate (GFR) estimation 68 mL/min >60 [facility] Glucose Ql (U)Ordered By: Pierre Dsouza on 07-13-2024 Glucose (U) [Mass/Vol] 50 mg/dL High Normal [facility] Urine glucose detection 50 mg/dl High Normal [facility] Glucose measurementOrdered B y: ED PROVIDER on 07-13-2024 Glucose [Mass/Vol] 205 mg/dL High 74-106 [facility] Comment on above: Glucose result great er than or equal to 200 mg/dLsuggests DIABETES MELLITUS per A.D.A. criteria. Glucose measurement 205 mg/dL High 74-106 [facility] Hematocrit Auto (Bld) [Volum e fraction]Ordered By: ED PROVIDER on 07-13-2024 Hematocrit (Bld) [Volume fraction] 34.5 % Low 37-47 [facility] Automated blood hematocrit (percentage) 34.5 % Low 37-47 [facility] Hemoglobin measurementOrdere d By: ED PROVIDER on 07-13-2024 Hemoglobin (Bld) [Mass/Vol] 10.0 g/dL Low 12.0-15.0 [facility] Hemoglobin measurement 10.0 g/dL Low 12.0-15.0 [facility] Immature granulocytes/100 WB C Auto (Bld)Ordered By: ED PROVIDER on 07-13-2024 Immature granulocytes/100 WBC (Bld) 0.500 % 0.0-0.9 [facility] Comment on above: IG% - Immature Granu locytes (promyelocytes, myelocytes and metamyelocytes) > 1% indicates that a LEFT SHIFT is Present. Automated immature granulocyte percentage 0.500 % 0.0-0.9 [facility] Influenza virus A and B and SARS-CoV-2 (COVID-19) and Respiratory syncytial virus RNAOrdered By: Kendall Dsouza on 07-13-2024 SARS-CoV-2 (COVID-19) RNA MARY+probe Ql (Unsp spec) [facility] SARS-CoV-2 (COVID-19) RNA MARY+probe Ql (Unsp spec) [facility] SARS-CoV-2 (COVID-19) RNA MARY+probe Ql (Unsp spec) [facility] SARS-CoV-2 (COVID-19) RNA MARY+probe Ql (Unsp spec) [facility] Ketones Test strip Ql (U)Ord ered By: Kendall Dsouza on 07-13-2024 Ketones Ql (U) Negative Negative [facility] Leukocyte esterase Test stri p Ql (U)Ordered By: Kendall Dsouza on 07-13-2024 Urine leukocyte esterase detection by dipstick 25 /ul High Negative [facility] Lymphocytes Auto (Unsp spec) [#/Vol]Ordered By: ED PROVIDER on 07-13-2024 Lymphocytes (Bld) [#/Vol] 0.96 10*3/uL 0.83-4.51 [facility] Absolute lymphocyte count 0.96 X10^3/uL 0.83-4.51 [facility] Lymphocytes/100 WBC Auto (Un sp spec)Ordered By: ED PROVIDER on 07-13-2024 Lymphocytes/100 WBC (Bld) 22.2 % [facility] Automated lymphocyte count as percentage of total leukocytes 22.2 % [facility] M100.678on 07-13-2024 M100.678 Pending SARS-CoV-2 (COVID 19) Negative INFLUENZA A Negative INFLUENZA B Negative RSV PCR Negative Normal [facility] Comment on above: Performed By: #### M 100.678 ####[facility] [address] [place], [place], [id number] M100.678 Pending SARS-CoV-2 (COVID 19) Negative INFLUENZA A Negative INFLUENZA B Negative RSV PCR Negative Normal [facility] Comment on above: Performed By: #### M 100.678 ####[facility] [address] [place], [place], [id number] MCV (RBC) [Entitic vol]Order ed By: ED PROVIDER on 07-13-2024 MCV (mean corpuscular volume) determination 97.7 fL 81-99 [facility] MCV (mean corpuscular volume ) determinationOrdered By: ED PROVIDER on 07-13-2024 MCV (RBC) [Entitic vol] 97.7 fL 81-99 [facility] Mean corpuscular hemoglobin (MCH) determinationOrdered By: ED PROVIDER on 07-13-2024 MCH (RBC) [Entitic mass] 28.3 pg 27.0-32.0 [facility] Mean corpuscular hemoglobin (MCH) determination 28.3 pg 27.0-32.0 [facility] Mean corpuscular hemoglobin concentration (MCHC) determinationOrdered By: ED PROVIDER on 07-13-2024 MCHC (RBC) [Mass/Vol] 29.0 g/dL Low 32-36 [facility] Mean corpuscular hemoglobin concentration (MCHC) determination 29.0 g/dL Low 32-36 [facility] Mean platelet volume determi nationOrdered By: ED PROVIDER on 07-13-2024 Platelet mean volume (Bld) [Entitic vol] 9.1 fL 6.2-12.0 [facility] Mean platelet volume determination 9.1 fl 6.2-12.0 [facility] Microscopic analysis of urin e for red blood cells (RBC)Ordered By: Kendall Dsouza on 07-13-2024 Urine RBC 0-5 SEEN /hpf 0-5 [facility] Microscopic analysis of urine for red blood cells (RBC) 0-5 SEEN /hpf 5-10 [facility] Monocyte percentageOrdered B y: ED PROVIDER on 07-13-2024 Monocytes/100 WBC (Bld) 9.3 % 0-10 [facility] Monocyte percentage 9.3 % 0-10 [facility] Mucus LM Ql (Urine sed)Order ed By: Kendall Dsouza on 07-13-2024 Mucus Ql (Urine sed) 1+ /hpf [facility] Mucus detection in urine sediment by light microscopy 1+ /hpf [facility] Neutrophil percentageOrdered By: ED PROVIDER on 07-13-2024 Neutrophils/100 WBC (Bld) 66.2 % 47-70 [facility] Neutrophil percentage 66.2 % 47-70 [facility] Nitrite Test strip Ql (U)Ord ered By: Kendall Dsouza on 07-13-2024 Nitrite Ql (U) Negative Negative [facility] Nucleated red blood cell per centageOrdered By: ED PROVIDER on 07-13-2024 Nucleated RBC/100 WBC (Bld) [Ratio] 0 % 0-5 [facility] Nucleated red blood cell percentage 0 % 0-5 [facility] Platelet countOrdered By: ED PROVIDER on 07-13-2024 Platelets (Bld) [#/Vol] 215 10*3/uL 150-450 [facility] Platelet count 215 K/mm3 150-450 [facility] Potassium measurementOrdered By: ED PROVIDER on 07-13-2024 Potassium [Moles/Vol] 4.4 mmol/L 3.5-5.1 [facility] Potassium measurement 4.4 mmol/L 3.5-5.1 [facility] Protein Test strip Ql (U)Ord ered By: Kendall Dsouza on 07-13-2024 Protein Ql (U) 30 mg/dl High Negative [facility] Urine protein assay by test strip, semi-quantitative 30 mg/dl High Negative [facility] RBC Auto (Bld) [#/Vol]Ordere d By: ED PROVIDER on 07-13-2024 RBC (Bld) [#/Vol] 3.53 10*6/uL Low 4.2-5.4 [facility] Automated blood erythrocyte count 3.53 M/mm3 Low 4.2-5.4 [facility] Serum anion gap measurementO rdered By: ED PROVIDER on 07-13-2024 Anion gap [Moles/Vol] 6 mmol/L 5-15 [facility] Serum anion gap measurement 6 5-15 [facility] Serum or plasma calcium marisela urement (mass/volume)Ordered By: ED PROVIDER on 07-13-2024 Calcium [Mass/Vol] 9.2 mg/dL 8.5-10.1 [facility] Serum or plasma creatinine m easurement (mass/volume)Ordered By: ED PROVIDER on 07-13-2024 Creatinine [Mass/Vol] 0.90 mg/dL 0.55-1.02 [facility] Comment on above: The validity of the calculated GFR & GFRAA in patients over 70 years has not been determined. Clinical correlation is essential. Serum or plasma urea nitroge n measurement (mass/volume)Ordered By: ED PROVIDER on 07-13-2024 Urea nitrogen [Mass/Vol] 26 mg/dL High 12-19 [facility] Sodium levelOrdered By: ED P LIDA on 07-13-2024 Sodium [Moles/Vol] 138 mmol/L 136-145 [facility] Sodium level 138 mmol/L 136-145 [facility] Specific gravity (U) [Rel de nsity]Ordered By: Kendall Dsouza on 07-13-2024 Urine specific gravity measurement 1.020 1.002-1.030 [facility] Squamous epithelial cells de tection in urine sediment by light microscopyOrdered By: Kendall Dsouza on 07-13-2024 Epithelial cells.squamous LM Ql (Urine sed) 0-5 SEEN /hpf 5-10 [facility] Urea nitrogen [Mass/Vol]Orde red By: ED PROVIDER on 07-13-2024 Serum or plasma urea nitrogen measurement (mass/volume) 26 mg/dL High 12-19 [facility] Urinalysis, Completeon 07-13 Mucus Ql (Urine sed) 1+ /hpf Normal [facility] Comment on above: Order Comment: GULSHAN CTOR TO SPECIFY Performed By: #### L [id number] ####[facility] [address] [place], [place], [id number] WBC 5-10 SEEN Normal 0-5 [facility] Comment on above: Order Comment: GULSHAN CTOR TO SPECIFY Performed By: #### L [id number] ####[facility] [address] [place], [address] EPI,SQUAMOUS 0-5 SEEN Normal 5-10 [facility] Comment on above: Order Comment: COLLE CTOR TO SPECIFY Performed By: #### L [id number] ####[facility] [address] [place], [address] RBC 0-5 SEEN Normal 0-5 [facility] Comment on above: Order Comment: GULSHAN CTOR TO SPECIFY Performed By: #### L [id number] ####[facility] [address] [place], [address] BACTERIA 0 SEEN Normal None Seen [facility] Comment on above: Order Comment: GULSHAN CTOR TO SPECIFY Performed By: #### L [id number] ####[facility] [address] [place], [place], [address] Urine blood detectionOrdered By: Kendall Dsouza on 07-13-2024 Urine Occult Blood 10 /ul High Negative [facility] Urine blood detection 10 /ul High Negative [facility] Urine clarityOrdered By: Avtar Dsouza on 07-13-2024 Clarity (U) Clear Clear [facility] Urine color determinationOrd ered By: Kendall Dsouza on 07-13-2024 Color (U) Yellow Yellow [facility] Urine glucose detectionOrder ed By: Kendall Dsouza on 07-13-2024 Glucose Ql (U) 50 mg/dl High Normal [facility] Urine leukocyte esterase det ection by dipstickOrdered By: Kendall Dsouza on 07-13-2024 Leukocyte esterase Test strip Ql (U) 25 /ul High Negative [facility] Urine pHOrdered By: Kendall Schwartz ght on 07-13-2024 pH (U) 6.0 [pH] 5.0 - 8.0 [facility] Urine sediment bacteria coun t by microscopy (number/high power field)Ordered By: Kendall Dsouza on 07-13-2024 Bacteria LM.HPF (Urine sed) [#/Area] 0 /[HPF] None Seen [facility] Urine specific gravity measu rementOrdered By: Kendall Dsouza on 07-13-2024 Specific gravity (U) [Rel density] 1.020 1.002-1.030 [facility] Urine total bilirubin detect ion by test stripOrdered By: Kendall Dsouza on 07-13-2024 Urine total bilirubin detection by test strip Negative Negative [facility] Urine urobilinogen measureme ntOrdered By: Kendall Dsouza on 07-13-2024 Urobilinogen Ql (U) 1 mg/dl High Normal [facility] Urobilinogen Ql (U)Ordered B y: Kendall Dsouza on 07-13-2024 Urobilinogen (U) [Mass/Vol] 1 mg/dL High Normal [facility] Urine urobilinogen measurement 1 mg/dl High Normal [facility] White blood cell (WBC) count Ordered By: ED PROVIDER on 07-13-2024 WBC (Bld) [#/Vol] 4.3 10*3/uL Low 4.4-11.0 [facility] White blood cell (WBC) count 4.3 K/mm3 Low 4.4-11.0 [facility] White blood cell countOrdere d By: Kendall Dsouza on 07-13-2024 Urine WBC 5-10 SEEN /hpf 0-5 [facility] White blood cell count 5-10 SEEN /hpf 0-5 [facility] White blood cell count 5-10 SEEN /hpf 0-5 [facility] pH (U)Ordered By: Kendall pelletier on 07-13-2024 Urine pH 6.0 5.0 - 8.0 [facility] 36on 11-15-2023 36 She is no longer a patient at this office. Normal [facility] 36on 11-14-2023 36 Rx sent, no refills, she is past due for her 6-month follow-up appointment [facility] 36 Rx sent, no refills, she is past due for her 6-month follow-up appointment [place] [id number] Prescription Request : Last medication check: 02/15/23 Last physical exam: none Next scheduled appointment: none Last date of refill on this medication 05/07/23 and 06/28/23 [place] [id number] Prescription Request : Last medication check: 02/15/23 Last physical exam: none Next scheduled appointment: none Last date of refill on this medication 10/18/23 [facility] 36on 10-19-2023 36 Noted. Thank you. [facility] 36 She does not see our office anymore, found a new PCP. Called her and notified her to update Gregory. [facility] 36on 10-18-2023 36 Rx sent with no refi lls. Due for physical and fasting blood work. Please schedule. [facility] 36 Prescription Request : Last medication check: 02/15/23 Last physical exam: 06/07/22 Next scheduled appointment: none Last date of refill on this medication 06/05/23 [facility] 36on 08-20-2023 36 BRANDON BEAN MD did surgery will follow up with him. [facility] 36on 08-18-2023 36 Name of caller requesting page: [place] Phone number of caller: [phone] [facility] Reason for page: N/A Provider paged: Dr. Sanchez Practice name of paged provider: [facility] [place] [facility]opedics - Sports Medicine Page placed to #: N/A Time page was sent or provider contacted: 9:12PM Method of contact: Secure Chat Page content: Please call Asia she is calling on behalf of Dr. Jackson Gordillo for patient Alfie Hogan 1960. Please call Asia at [phone]. [facility] Laboratory - Drug toxicology Ordered By: Killian Pozo on 08-17-2023 Amphetamines Ql (U) Negative <1000 ng/mL [facility] Benzodiazepines Ql (U) Positive < 200 ng/mL [facility] Cannabinoids Screen Ql (U) Positive < 50 ng/mL [facility] Cocaine Ql (U) Negative < 300 ng/mL [facility] Opiates Ql (U) Positive < 300 ng/mL [facility] No Panel InformationOrdered By: Killian Pozo on 08-17-2023 MDMA (Ecstasy) Screen Negative < 500 ng/mL [facility] Urine Barbiturates Screen Negative < 200 ng/mL [facility] Urine Drug Screen Comment [facility] Comment on above: CONFIRMATORY TESTING FOR ALL POSITIVE URINE DRUG SCREENRESULTS WILL ONLY BE SENT OUT UPON PHYSICIAN ORDER. VISTA Urine Drug Screen methods provide only preliminaryanalytical test results. A more specific alternate chemicalmethod must be used in order to obtain a confirmedanalytical result. Gas chromatography/mass spectrometery(GC/MS) is the preferred confirmatory method. Clinicalconsideration and professional judgement should be appliedto any drug of abuse test result, particularly whenpreliminary positive results are used. URINE TCA TESTING MUST BE ORDERED SEPARATELY. USE TESTMNEMONIC: [facility] Urine Methadone Screen Negative < 300 ng/mL [facility] Urine phencyclidine (PCP) de tectionOrdered By: Killian Pozo on 08-17-2023 Phencyclidine Ql (U) Negative < 25 ng/mL [facility] CARECOORDon 08-15-2023 CAR[facility]OORD Patient Choice Patient Name: ALFIE HOGAN Date of : 1960 [facility] Absolute lymphocyte countOrd ered By: Killian Pozo on 08-14-2023 Lymphocytes Auto (Unsp spec) [#/Vol] 0.57 10*3/uL 0.83-4.51 [facility] Automated lymphocyte count a s percentage of total leukocytesOrdered By: Killian Pozo on 08-14-2023 Lymphocytes/100 WBC Auto (Unsp spec) 12.8 % 19-41 [facility] Basophil percentageOrdered B y: Killian Pozo on 08-14-2023 Basophils/100 WBC (Bld) 0.2 % 0-1 [facility] Bilirubin [Mass/Vol] 1.00 mg/dL 0.20-1.00 [facility] Comment on above: For patients on eltr ombopag therapy, use of Dimension [place] TBIL is not recommended. Chloride [Moles/Vol] 104 mmol/L 98-107 [facility] Cholesterol [Mass/Vol] 76 mg/dL <200 [facility] Comment on above: <200 mg/dL Desirable 200-240 mg/dL Borderline >240 mg/dL High Risk Eosinophils/100 WBC (Bld) 2.0 % 0-5 [facility] Glucose [Mass/Vol] 100 mg/dL 74-106 [facility] Comment on above: Fasting Glucose resu lt from 100 to 125 mg/dL suggests IMPAIRED HOMEOSTASIS per A.D.A. criteria. Hemoglobin (Bld) [Mass/Vol] 8.8 g/dL 12.0-15.0 [facility] Monocytes/100 WBC (Bld) 9.9 % 0-10 [facility] Neutrophils (Bld) [#/Vol] 3.3 10*3/uL 2.0-7.7 [facility] Neutrophils/100 WBC (Bld) 74.9 % 47-70 [facility] Potassium [Moles/Vol] 4.0 mmol/L 3.5-5.1 [facility] Protein [Mass/Vol] 5.2 g/dL 6.4-8.2 [facility] Sodium [Moles/Vol] 137 mmol/L 136-145 [facility] Triglyceride [Mass/Vol] 154 mg/dL <199 [facility] Comment on above: The drugs N-Acetylcy steine and Metamizole may falsely depress this assay.Serum Triglycerides Reference Interval Normal <150 mg/dL Borderline high 150 - 199 mg/dL High 200 - 499 mg/dL Very High > or = 500 mg/dL WBC (Bld) [#/Vol] 4.4 10*3/uL 4.4-11.0 [facility] Determination of erythrocyte mean corpuscular volume (MCV)Ordered By: Killian Pozo on 08-14-2023 MCV (RBC) [Entitic vol] 90.5 fL 81-99 [facility] Erythrocyte distribution wid th ratioOrdered By: [facility] Josesky on 08-14-2023 Erythrocyte distribution width (RBC) [Ratio] 15.6 % 11.6-14.6 [facility] Erythrocyte distribution wid th standard deviationOrdered By: [facility] on 08-14-2023 Erythrocyte distribution width (RBC) [Entitic vol] 51.6 fL 35.1-43.9 [facility] Hematocrit Auto (Bld) [Volum e fraction]Ordered By: [facility] Josesky on 08-14-2023 Hematocrit (Bld) [Volume fraction] 28.6 % 37-47 [facility] Immature granulocytes/100 WB C Auto (Bld)Ordered By: Killian Pozo on 08-14-2023 Immature granulocytes/100 WBC (Bld) 0.200 % 0.0-0.9 [facility] Comment on above: IG% - Immature Granu locytes (promyelocytes, myelocytes and metamyelocytes) > 1% indicates that a LEFT SHIFT is Present. Laboratory - Chemistry and C hemistry - challengeOrdered By: Killian Pozo on 08-14-2023 Albumin/Globulin [Mass ratio] 0.9 {ratio} 0.9-2.4 [facility] ALP [Catalytic activity/Vol] 132 U/L 45-117 [facility] ALT [Catalytic activity/Vol] 10 U/L 13-56 [facility] Cholesterol in HDL [Mass/Vol] 31 mg/dL >40 [facility] Comment on above: The drugs N-Acetylcy steine and Metamizole may falsely depress this assay. Reference Range HDL <40 mg/dL Low HDL Cholesterol HDL >or= 60 mg/dL High HDL Cholesterol Cholesterol in LDL [Mass/Vol] 14 mg/dL 0-130 [facility] CO2 [Moles/Vol] 28.0 mmol/L 21.0-32.0 [facility] Globulin (S) [Mass/Vol] 2.7 g/dL 2.2-4.2 [facility] Urea nitrogen/Creatinine [Mass ratio] 12.2 mg/mg 10-20 [facility] Laboratory - Hematology and Cell countsOrdered By: Killian Pozo on 08-14-2023 MCH (RBC) [Entitic mass] 27.8 pg 27.0-32.0 [facility] MCHC (RBC) [Mass/Vol] 30.8 g/dL 32-36 [facility] Nucleated RBC/100 WBC (Bld) [Ratio] 0 % 0-5 [facility] Platelet mean volume (Bld) [Entitic vol] 10.4 fL 6.2-12.0 [facility] Platelets (Bld) [#/Vol] 134 10*3/uL 150-450 [facility] No Panel InformationOrdered By: Killian Pozo on 03-12-2024 Estimated GFR (MDRD) Amer 57 mL/min >60 [facility] Comment on above: GFR Calc Estimated GFR (MDRD) Non-Af Amer 47 mL/min >60 [facility] Comment on above: Non- GFR Calc Vitamin D 25-Hydroxy 39.1 ng/mL [facility] Comment on above: Vitamin D 25(OH) Sta tus Range Deficiency <20 ng/mL (50nmol/L) Insufficiency 20 - 30 ng/mL (50 - 75 nmol/L) Sufficiency 30 - 100 ng/mL (75 - 250 nmol/L) Toxicity >100 ng/mL (>250 nmol/L) VLDL Cholesterol 31 mg/dL 5-40 [facility] RBC Auto (Bld) [#/Vol]Ordere d By: Killian Pozo on 08-14-2023 RBC (Bld) [#/Vol] 3.16 10*6/uL 4.2-5.4 [facility] Serum or plasma calcium marisela urement (mass/volume)Ordered By: Killian Pozo on 08-14-2023 Calcium [Mass/Vol] 9.0 mg/dL 8.5-10.1 [facility] Serum or plasma creatinine m easurement (mass/volume)Ordered By: Killian Pozo on 08-14-2023 Creatinine [Mass/Vol] 1.23 mg/dL 0.55-1.02 [facility] Comment on above: The validity of the calculated GFR & GFRAA in patients over 70 years has not been determined. Clinical correlation is essential. Serum or plasma urea nitroge n measurement (mass/volume)Ordered By: Killian Pozo on 08-14-2023 Urea nitrogen [Mass/Vol] 15 mg/dL 7-18 [facility] Thin prep Papanicolaou smear with manual screeningOrdered By: Killian Pozo on 08-14-2023 Thin prep Papanicolaou smear with manual screening 2.5 g/dL 3.2-5.0 [facility] Thin prep Papanicolaou smear with manual screening 26 U/L 15-37 [facility] Thin prep Papanicolaou smear with manual screening 5 5-15 [facility] CARECOORDon 08-13-2023 [facility] [id number] was entered int o [facility] for the [facility] per TCC request. [facility] Next Site of Care Admission Date: 08/09/2023 07:14 AM Patient Name: ALFIE HOGAN Location: [place] [address] [facility] Date of : 1960 -------- Placement Information -------- Referral Type:Long Term/SNF - New Referral ID:[id number] Provider Name:[facility] Address 1:[address] [place] [address] Road Address 2: City:[place] Selection Factors:Patient/Family Choice State:[place] Normal [facility] Transport arranged or 1999 today to transfer pt to [facility]. RN, US, TCC, pt and [facility] notified. [facility] Updates placed to [facility] [place] via [facility] per TCC request. Await review and response regarding ability to accept. TCC notified. [facility] IDNon 08-13-2023 IDN Problem: Pain - Adul t Goal: Verbalizes/displays adequate comfort level or baseline comfort level Outcome: Progressing Problem: Chronic Conditions and Co-morbidities Goal: Patient's chronic conditions and co-morbidity symptoms are monitored and maintained or improved Outcome: Progressing Problem: Knowledge Deficit Goal: Patient/family/caregiver demonstrates understanding of disease process, treatment plan, medications, and discharge instructions Outcome: Progressing Problem: Potential for Compromised Skin Integrity Goal: Skin Integrity is Maintained or Improved Outcome: Progressing Goal: Nutritional status is improving Outcome: Progressing Problem: Urinary Incontinence Goal: Perineal skin integrity is maintained or improved Outcome: Progressing Normal [facility] Laboratory - Microbiology an d Antimicrobial susceptibilityOrdered By: Erick Estevez on 08-13-2023 SARS-CoV-2 (COVID-19) Ag IA.rapid Ql (Resp) Negative Negative [facility] Comment on above: A negative result do es not rule out the possibility of SARS-CoV-2 infection. NAAT-based methods should be considered for symptomatic patients presenting greater than seven days after onset of symptoms. Method: Lateral flow immunoassay. Fact sheets for healthcare providers and patients can be found at the following sites: https://www.fda.gov/media/272883/download https://www.fda.gov/media/046514/download No Panel Informationon 08-12 Normal V/Q scan. Report Dictated on Electronically Signed By: Eric Giron MD Electronically Signed Date/Time: 08/13/2023 1:53 PM T [employer] Patient Name: ALFIE HUGHES MS : 1960 Exam Date/Time: 08/13/2023 13:06 Procedure: NM LUNG VENTILATION PERFUSION AEROSOL Ordering Provider: YIN TARANJOT Reason For Exam: Pulmonary embolism (PE) suspected, positive D-dimer VENTILATION-PERFUSION (VQ) SCAN CLINICAL INDICATION: Shortness of breath Multiple ventilation images of the lungs were obtained after the inhalation of approximately 1 millicuries of technetium-99m DTPA aerosol. Corresponding perfusion images of the lungs were then acquired after the intravenous administration of 5 millicuries of technetium-99m MAA. COMPARISON: Chest x-ray performed the same day FINDINGS: Both the ventilation and perfusion images appear relatively homogeneous. No mismatched perfusion defects are identified. There is no focal consolidation on the comparison chest x-ray. [facility] Eric Giron MD - 08/13/2023 Patient Name: ALIFE HOGAN : 1960 [facility]#: [id number] Exam Date/Time: 08/13/2023 13:06 Procedure: NM LUNG VENTILATION PERFUSION AEROSOL Ordering Provider: YIN TARANJOT Reason For Exam: Pulmonary embolism (PE) suspected, positive D-dimer VENTILATION-PERFUSION (VQ) SCAN CLINICAL INDICATION: Shortness of breath Multiple ventilation images of the lungs were obtained after the inhalation of approximately 1 millicuries of technetium-99m DTPA aerosol. Corresponding perfusion images of the lungs were then acquired after the intravenous administration of 5 millicuries of technetium-99m MAA. COMPARISON: Chest x-ray performed the same day FINDINGS: Both the ventilation and perfusion images appear relatively homogeneous. No mismatched perfusion defects are identified. There is no focal consolidation on the comparison chest x-ray. IMPRESSION: Normal V/Q scan. Report Dictated on Electronically Signed By: Eric Giron MD Electronically Signed Date/Time: 08/13/2023 1:53 PM EDT [facility] Radiology Study observation (narrative) [facility] No evidence of deep vein and superficial thrombosis in the right lower extremity. No evidence of deep vein and superficial thrombosis in the left lower extremity. Right Lower Venous No evidence of deep vein and superficial thrombosis in the right lower extremity. Common Femoral Vein: Patent, normal phasicity, spontaneous, normal augmentation, compressible. Greater Saphenous Vein: Thigh not visualized. Saphenofemoral Junction: Patent, compressible. Profunda Femoral Vein: Patent. Proximal Femoral Vein: Patent, compressible. Middle Femoral Vein: Patent, normal phasicity, spontaneous, normal augmentation, compressible. Distal Femoral Vein: Patent and spontaneous. Popliteal Vein: Patent, normal phasicity, spontaneous, normal augmentation, compressible. Gastrocnemius Vein: Patent, compressible. Soleal Vein: Patent, compressible. Posterior Tibial Vein: Patent, compressible. Peroneal Vein: Patent, compressible. Left Lower Venous No evidence of deep vein and superficial thrombosis in the left lower extremity. Common Femoral Vein: Patent, normal phasicity, spontaneous, normal augmentation, compressible. Greater Saphenous Vein: Enitre vessel patent, compressible. Saphenofemoral Junction: Patent, compressible. Profunda Femoral Vein: Patent. Proximal Femoral Vein: Patent, compressible. Middle Femoral Vein: Patent, normal phasicity, spontaneous, normal augmentation, compressible. Distal Femoral Vein: Patent and spontaneous. Popliteal Vein: Patent, normal phasicity, spontaneous, normal augmentation, compressible. Gastrocnemius Vein: Patent, compressible. Soleal Vein: Patent, compressible. Posterior Tibial Vein: Patent, compressible. Peroneal Vein: Patent, compressible. Prop Sawyer Details A torres scale, color Doppler imaging and spectral Doppler analysis ultrasound was performed. During the study longitudinal and transverse views were obtained. Pulsed wave doppler was performed. The exam was performed with the patient in the supine position. Overall the study quality was adequate. Study was technically difficult due to: body habitus, bedside exam and patient movement. CV CPACS No Panel InformationOrdered By: Eric Giron on 08-13-2023 [facility] Progress Noteon 08-13-2023 Progress Note Transport here to [facility] pt. Report given to medic. All belongings in room sent with pt including CPAP. No further questions at this time. Normal [facility] Progress Note Report called to Remberto prabhu Goetz. SIMON Bolton took report with no further questions at this time. 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 Normal [facility] Progress Note Subjective Patient ID: Kayce Hogan is a 62 y.o. female who presents for No chief complaint on file. Patient is s/p OR on 08/[address] Bean. Psychiatry was consulted due to patient's possible confusion and anxiety since surgery. Patient reported that she is currently experiencing 8/10 pain, but that it is manageable. She expressed some frustration with the overall situation regarding her continued pain, how she is still in the hospital and not at a rehab facility. She briefly discussed a long-standing history of depression and anxiety since her childhood, but states that she is no longer taking prozac. She also briefly mentioned a history of alcohol use disorder, but stated that her last drink was over 16months ago. She subsequently expressed some confusion regarding why psychiatry was consulted, which I explained to her. She then stated that her primary concern is with her current pain and progression s/p OR, when she is going to go to rehab, and why she has been tachycardic. She declined further discussion regarding her history of depression, anxiety, and alcohol use disorder. Past Medical History: Diagnosis Date 2018 novel coronavirus disease (COVID-19) Alcohol dependence with uncomplicated withdrawal ([facility]) 07/07/2020 Allergic Anxiety Arthritis Asthma Bronchiectasis ([facility]) COPD exacerbation ([facility]) 10/24/2019 Depression Diaphragm paralysis Diastolic heart failure ([facility]) Dizziness 11/09/2020 Dvt femoral (deep venous thrombosis) ([facility]) right...was on blood thinners after broken ankle have been off thinners for a few years Fall 11/21/2020 GERD (gastroesophageal reflux disease) Hypertension Kidney disease Kidney failure 01/09/2019 Kidney stone Obesity Oxygen decrease Currently on Home oxygen, uses with exertion Pulmonary hypertension (HCC) Pulmonary hypertension ([facility]) Weakness 11/21/2020 Social History Socioeconomic History Marital status: Spouse name: Not on file Number of children: Not on file Years of education: Not on file Highest education level: Not on file Occupational History Not on file Tobacco Use Smoking status: Former Packs/day: 0.50 Years: 15.00 Additional pack years: 0.00 Total pack years: 7.50 Types: Cigarettes Quit date: 06/04/2005 Years since quittin.2 Smokeless tobacco: Never Vaping Use Vaping Use: Never used Substance and Sexual Activity Alcohol use: Not Currently Drug use: No Sexual activity: Yes Partners: Male control/protection: Female Sterilization Other Topics Concern Not on file Social History Narrative Not on file Social Determinants of Health Financial Resource Strain: Low Risk (06/02/2022) Overall Financial Resource Strain (CARDIA) Difficulty of Paying Living Expenses: Not hard at all Food Insecurity: No Food Insecurity (06/02/2022) Hunger Vital Sign Worried About Running Out of Food in the Last Year: Never true Ran Out of Food in the Last Year: Never true Transportation Needs: No Transportation Needs (06/02/2022) PRAPARE - Transportation Lack of Transportation (Medical): No Lack of Transportation (Non-Medical): No Physical Activity: Not on file Stress: Not on file Social Connections: Not on file Intimate Partner Violence: Not At Risk (08/09/2023) Humiliation, Afraid, Rape, and Kick questionnaire Fear of Current or Ex-Partner: No Emotionally Abused: No Physically Abused: No Sexually Abused: No Housing Stability: Not on file Review of Systems Respiratory: Negative for shortness of breath. Cardiovascular: Negative for chest pain and leg swelling. Musculoskeletal: Positive for back pain and myalgias. Psychiatric/Behavioral: Positive for confusion. Negative for agitation. Confusion regarding why psychiatry was consulted and who all of her doctors are. Objective Physical Exam Constitutional: Appearance: She is obese. She is ill-appearing. Cardiovascular: Rate and Rhythm: Tachycardia present. Pulmonary: Comments: On nasal cannula Psychiatric: Mood and Affect: Mood is anxious. Affect is tearful. Speech: Speech normal. Behavior: Behavior is hyperactive. Behavior is cooperative. Comments: Patient fidgeting in bed and rolling her feet and lower extremities during visit. Lab Review: Recent Results (from the past 72 hour(s)) Basic metabolic panel Collection Time: 08/11/23 1:53 AM Result Value Ref Range SODIUM 133 (L) 135 - 145 mmol/L POTASSIUM 3.3 (L) 3.5 - 5.1 mmol/L CHLORIDE 102 98 - 107 mmol/L CARBON DIOXIDE 27 22 - 30 mmol/L UREA NITROGEN 21 (H) 7 - 17 mg/dL CREATININE 1.20 (H) 0.52 - 1.04 mg/dL GLUCOSE 114 (H) 70 - 100 mg/dL CALCIUM 8.4 8.4 - 10.4 mg/dL ANION GAP 4 3 - 13 mmol/L eGFR 51.6 (L) >60.0 mL/min/1.73m*2 CBC auto differential Collection Time: 08/11/23 1:53 AM Result Value Ref Range Auto WBC 4.0 3.6 - 10.7 10*3/uL RBC 2.38 (L) 3.80 - 5.20 10*6/uL Hemoglobin 6.5 (LL) 11.7 - 16.0 g/dL He (more content not included)... Normal [facility] Progress Note Alfie Hogan is a 62 y.o.female No chief complaint on file. Patient seen and examined, history of dysthymia, back pain. S/P OR, has been confused and anxious since surgery. 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 Patient denies SI, is angry at perceived lapses of care. Who called you! Patient lives with ex-, plans to move out when feeling better. Denies alcohol use for over 14 years. Denies SI. Past Medical History: Diagnosis Date 2018 novel coronavirus disease (COVID-19) Alcohol dependence with uncomplicated withdrawal (HCC) 07/07/2020 Allergic Anxiety Arthritis Asthma Bronchiectasis (HCC) COPD exacerbation (HCC) 10/24/2019 Depression Diaphragm paralysis Diastolic heart failure (HCC) Dizziness 11/09/2020 Dvt femoral (deep venous thrombosis) ([facility]) right...was on blood thinners after broken ankle have been off thinners for a few years Fall 11/21/2020 GERD (gastroesophageal reflux disease) Hypertension Kidney disease Kidney failure 01/09/2019 Kidney stone Obesity Oxygen decrease Currently on Home oxygen, uses with exertion Pulmonary hypertension (HCC) Pulmonary hypertension (HCC) Weakness 11/21/2020 Current Outpatient Medications Medication Instructions albuterol (Ventolin HFA) 108 (90 Base) MCG/ACT inhaler 2 puffs, Inhalation, Every 4 hours PRN carvedilol (Coreg) 3.125 MG tablet take 1 tablet by mouth every morning and 1 tablet by mouth every evening with meals cefadroxil (DURICEF) 500 mg, Oral, 2 times daily docusate sodium (COLACE) 100 mg, Oral, 2 times daily Dulera 100-5 MCG/ACT inhaler INHALE 2 PUFFS BY MOUTH EVERY MORNING AND INHALE 2 PUFFS EVERY EVENING FLUoxetine (PROZAC) 40 mg, Oral, Daily hydrOXYzine pamoate (Vistaril) 50 MG capsule take 1 capsule by mouth every 8 hours if needed NON FORMULARY Bipap machine oxyCODONE-acetaminophen (Percocet) 5-325 MG tablet 1 tablet, Oral, Every 4 hours PRN oxygen (O2) gas 3 L, Inhalation, Continuous, via nasal canula pantoprazole (PROTONIX) 40 mg, Oral, Every morning potassium chloride CR (Klor-Con M20) 20 MEQ ER tablet TAKE 1 TABLET BY MOUTH TWICE A DAY *DO NOT CRUSH OR CHEW rivastigmine (Exelon) 1.5 MG capsule TAKE 1 CAPSULE BY MOUTH TWICE A DAY rosuvastatin (CRESTOR) 40 mg, Oral, Nightly traZODone (DESYREL) 150 mg, Oral, Nightly trospium (SANCTURA) 20 mg, Oral, 2 times daily Allergies Allergen Reactions Bee Pollen Cat Hair Extract Other reaction(s): Other: See Comments Dust Mite Extract Unknown Penicillins Pollen Extract And ragweed Seasonal Ic [Cholestatin] Other reaction(s): itchy eyes Past Surgical History: Procedure Laterality Date ABDOMINAL SURGERY ADENOIDECTOMY ANKLE SURGERY Right 07/19/2021 APPENDECTOMY 2002 BACK SURGERY CHOLECYSTECTOMY 2004 EXTREMITY SURGERY Left 07/2021 elbow FRACTURE SURGERY HERNIA REPAIR 1972 JOINT REPLACEMENT Bilateral hips LUMBAR DISC SURGERY LUMBAR DISC SURGERY N/A 08/09/2023 REMOVAL HARDWARE LUMBAR 3/4/5, LAMINECTOMY LUMBAR 2, FUSION THORACIC 11-LUMBAR 3, INSTRUMENTATION THORACIC 11-LUMBAR 5, ALLOGRAFT, BONE MORPHOGENETIC PROTEIN TENDON RELEASE Right Right arm TONSILLECTOMY TONSILLECTOMY (HISTORICAL) 1966 TOTAL ABDOMINAL HYSTERECTOMY 2001 Family History Problem Relation Name Age of Onset Mental illness Mother Jhoana Cancer Mother Jhoana pancreatic Alcohol abuse Mother Jhoana Depression Mother Jhoana High Blood Pressure Father Geronimo Cancer Father Geronimo colon Alcohol abuse Father Geronimo Hypertension Father Geronimo Colon cancer Father Geronimo Alcohol abuse Sister Cr Alcohol abuse Brother Noah Social History Tobacco Use Smoking status: Former Packs/day: 0.50 Years: 15.00 Additional pack years: 0.00 Total pack years: 7.50 Types: Cigarettes Quit date: 06/04/2005 Years since quittin.2 Smokeless tobacco: Never Vaping Use Vaping Use: Never used Substance Use Topics Alcohol use: Not Currently Drug use: No Vitals: 08/12/23 0815 08/12/23 1922 08/12/23 2232 08/13/23 0829 BP: 121/77 130/84 105/73 BP Location: Right arm Right arm Right arm Patient Position: Lying Lying Pulse: 104 112 108 116 Resp: 16 16 14 Temp: 37.2 ?C (98.9 ?F) 37.4 ?C (99.4 ?F) 37 ?C (98.6 ?F) TempSrc: Temporal Temporal SpO2: 98% 92% 95% 97% Review of Systems Constitutional: Positive for fatigue. Musculoskeletal: Positive for back pain and gait problem. Psychiatric/Behavioral: Positive for confusion, decreased concentration, dysphoric mood and sleep disturbance. Negative for suicidal ideas. The patient is nervous/anxious. Physical Exam Constitutional: Appearance: She is ill-appearing. Cardiovascular: Rate and Rhythm: Tachycardia present. Pulmonary: Effort: Pulmonary effort is normal. Neurological: General: No focal deficit present. Mental Status: She is alert and oriented to person, place, and time. Mental status is at baseline. Ps (more content not included)... Normal [facility] SARS-COV-2 ANTIGENon 024 SARS-COV-2 ANTIGEN SARS-COV-2 ANTIGEN -BINAX Reference Negative Negative A negative result does not rule out the possibility of SARS-CoV-2 infection. NAAT-based methods should be considered for symptomatic patients presenting greater than seven days after onset of symptoms. Method: Lateral flow immunoassay. Fact sheets for healthcare providers and patients can be found at the following sites: https://www.fda.gov/medi a/021170/download https://www.fda.gov/medi a/777412/download Normal [facility] Comment on above: Performed By: #### L [id number] #### Endoscopy Support Specialist: RADHA NOGUEIRA ([phone]) [facility] ([facility]) [address] [place] [address] SARS-CoV-2 (COVID-19) Ag IA. rapid Ql (Resp)Ordered By: Erick Estevez on 08-13-2023 Interpretation and review of laboratory results Normal [facility] XR CHEST 1 VIEWon 08-13-2023 XR CHEST 1 VIEW Patient Name: ALFIE HUGHES MS : 1960 Exam Date/Time: 08/13/2023 13:33 Procedure: XR CHEST 1 VIEW Ordering Provider: YIN TARANJOT Reason For Exam: shortness of breath PORTABLE CHEST X-RAY CLINICAL INDICATION: shortness of breath A portable frontal view of the chest was obtained. COMPARISON: None FINDINGS: The cardiac silhouette is within normal limits. Bilateral basilar atelectasis is noted. No focal consolidation is seen within the lungs. There is no large pleural effusion or pneumothorax. Mild S-shaped scoliosis of the thoracic spine is noted. Lumbar spine fusion hardware is not fully imaged. IMPRESSION: Mild streaky atelectasis within the lung bases. No focal consolidation is seen. Report Dictated on Electronically Signed By: Eric Giron MD Electronically Signed Date/Time: 08/13/2023 1:53 PM EDT [facility] XR Chest Single viewon 08-12 Mild streaky atelectasis within the lung bases. No focal consolidation is seen. Report Dictated on Electronically Signed By: Eric Giron MD Electronically Signed Date/Time: 08/13/2023 1:53 PM EDT [facility] [employer] Patient Name: ALFIE HUGHES MS : 1960 Exam Date/Time: 08/13/2023 13:33 Procedure: XR CHEST 1 VIEW Ordering Provider: YIN TARANJOT Reason For Exam: shortness of breath PORTABLE CHEST X-RAY CLINICAL INDICATION: shortness of breath A portable frontal view of the chest was obtained. COMPARISON: None FINDINGS: The cardiac silhouette is within normal limits. Bilateral basilar atelectasis is noted. No focal consolidation is seen within the lungs. There is no large pleural effusion or pneumothorax. Mild S-shaped scoliosis of the thoracic spine is noted. Lumbar spine fusion hardware is not fully imaged. [facility] Eric Giron MD - 08/13/2023 Patient Name: ALFIE HOGAN : 1960 Exam Date/Time: 08/13/2023 13:33 Procedure: XR CHEST 1 VIEW Ordering Provider: YIN TARANJOT Reason For Exam: shortness of breath PORTABLE CHEST X-RAY CLINICAL INDICATION: shortness of breath A portable frontal view of the chest was obtained. COMPARISON: None FINDINGS: The cardiac silhouette is within normal limits. Bilateral basilar atelectasis is noted. No focal consolidation is seen within the lungs. There is no large pleural effusion or pneumothorax. Mild S-shaped scoliosis of the thoracic spine is noted. Lumbar spine fusion hardware is not fully imaged. IMPRESSION: Mild streaky atelectasis within the lung bases. No focal consolidation is seen. Report Dictated on Electronically Signed By: Eric Giron MD Electronically Signed Date/Time: 08/13/2023 1:53 PM EDT [facility] Radiology Study observation (narrative) [facility] BASIC METABOLIC PANELon 03- Anion gap [Moles/Vol] 5 mmol/L Normal 3-13 [facility] Comment on above: Performed By: #### L [id number] #### Endoscopy Support Specialist: RADHA NOGUEIRA ([phone]) [address] Calcium [Mass/Vol] 8.2 mg/dL Low 8.4-10.4 [facility] Comment on above: Performed By: #### L [id number] #### Endoscopy Support Specialist: RADHA [phone]) [facility]) [address] [place] [address] Chloride [Moles/Vol] 106 mmol/L Normal 98-107 [facility] Comment on above: Performed By: #### L [id number] #### Endoscopy Support Specialist: RADHA [phone]) [facility]) [address] [place] [address] CO2 [Moles/Vol] 25 mmol/L Normal 22-30 [facility] Comment on above: Performed By: #### L [id number] #### Endoscopy Support Specialist: RADHA [id number]) [facility] ([facility]) [address] [place] [address] [place] Creatinine [Mass/Vol] 1.12 mg/dL High 0.52-1.04 [facility] Comment on above: Performed By: #### L [id number] #### Endoscopy Support Specialist: RADHA NOGUEIRA ([phone]) [facility] ([facility]) [address] [place] [address] [place] GLOMERULAR FILTRATION RATE ML/MIN/1.73 SQ M.PREDICTED 56.1 mL/min/1.73m*2 Low >60.0 [facility] Comment on above: Result Comment: Calc ulation based on the Chronic Kidney Disease Epidemiology Collaboration (CKD-EPI) equation refit without adjustment for race Performed By: #### L [id number] #### Endoscopy Support Specialist: RADHA NOGUEIRA ([phone]) [facility] ([facility]) [address] [place] [address] [place] Glucose [Mass/Vol] 106 mg/dL High 70-100 [facility] Comment on above: Performed By: #### L [id number] #### Endoscopy Support Specialist: RADHA NOGUEIRA ([phone]) [facility] ([facility]) [address] [place] [address] [place] Potassium [Moles/Vol] 3.4 mmol/L Low 3.5-5.1 [facility] Comment on above: Performed By: #### L [id number] #### Endoscopy Support Specialist: RADHA NOGUEIRA ([phone]) [facility] ([facility]) [address] [place] [address] [place] Sodium [Moles/Vol] 135 mmol/L Normal 135-145 [facility] Comment on above: Performed By: #### L [id number] #### Endoscopy Support Specialist: RADHA NOGUEIRA ([phone]) [facility] ([facility]) [address] [place] [address] [place] Urea nitrogen [Mass/Vol] 17 mg/dL Normal 7-17 [facility] Comment on above: Performed By: #### L [id number] #### Endoscopy Support Specialist: RADHA NOGUEIRA ([phone]) [facility] ([facility]) [address] [place], [place] [id number] [facility] Basic metabolic 1998 panelon 08-12-2023 Anion gap [Moles/Vol] 5 mmol/L 3 - 13 mmol/L [facility] Calcium [Mass/Vol] 8.2 mg/dL Low 8.4 - 10. 4 mg/dL [facility] Chloride [Moles/Vol] 106 mmol/L 98 - 10 7 mmol/L [facility] CO2 [Moles/Vol] 25 mmol/L 22 - 30 mmol/L [facility] Creatinine [Mass/Vol] 1.12 mg/dL High 0.52 - 1.04 mg/dL [facility] GFR/1.73 sq M.predicted MDRD (S/P/Bld) [Vol rate/Area] 56.1 mL/min/{1.73_m2} Low - PINF [facility] Comment on above: Calculation based on the Chronic Kidney Disease Epidemiology Collaboration (CKD-EPI) equation refit without adjustment for race Glucose [Mass/Vol] 106 mg/dL High 70 - 100 mg/dL [facility] Interpretation and review of laboratory results Abnormal [facility] Potassium [Moles/Vol] 3.4 mmol/L Low 3.5 - 5.1 mmol/L [facility] Sodium [Moles/Vol] 135 mmol/L 135 - 145 mmol/L [facility] Urea nitrogen [Mass/Vol] 17 mg/dL 7 - 17 mg/dL [facility] CARECOORDon 08-12-2023 [facility] tasked to follow over the weekend. Auth remains pending. TCC to continue to follow and assist prn. Normal [facility] CBC W Auto Differential pane l (Bld)Ordered By: Jatinder Perez on 08-12-2023 Basophils (Bld) [#/Vol] 0.0 10*3/uL 0.0 - 0.2 10*3/uL [facility] Basophils/100 WBC (Bld) 0.3 % 0.0 - 2.0 % [facility] Eosinophils (Bld) [#/Vol] 0.1 10*3/uL 0.0 - 0.5 10*3/uL [facility] Eosinophils/100 WBC (Bld) 1.8 % 0.0 - 6.0 % [facility] Erythrocyte distribution width (RBC) [Ratio] 16.0 % High 11.5 - 15.0 % [facility] Hematocrit (Bld) [Volume fraction] 24.9 % Low 35.0 - 47.0 % [facility] Hemoglobin (Bld) [Mass/Vol] 7.8 g/dL Low 11.7 - 16.0 g/dL [facility] Immature granulocytes (Bld) [#/Vol] 0.0 10*3/uL NINF - 0.1 10*3/uL [facility] Immature granulocytes/100 WBC (Bld) 0.6 % 0.0 - 2.0 % [facility] Interpretation and review of laboratory results Abnormal [facility] IPF 2 [facility] Lymphocytes (Bld) [#/Vol] 0.4 10*3/uL Low 1.0 - 4.3 10*3/uL [facility] Lymphocytes/100 WBC (Bld) 12.8 % Low 15.0 - 45.0 % [facility] MCH (RBC) [Entitic mass] 27.8 pg 26.0 - 34.0 pg [facility] MCHC (RBC) [Mass/Vol] 31.3 % 30.5 - 36.0 % [facility] MCV (RBC) [Entitic vol] 88.6 fL 77.0 - 99.0 fL [facility] Monocytes (Bld) [#/Vol] 0.3 10*3/uL 0.0 - 0.9 10*3/uL [facility] Monocytes/100 WBC (Bld) 8.7 % 5.0 - 13.0 % [facility] Neutrophils (Bld) [#/Vol] 2.5 10*3/uL 1.8 - 7.5 10*3/uL [facility] Neutrophils/100 WBC (Bld) 75.8 % 38.0 - 82.0 % [facility] Nucleated RBC/100 WBC (Bld) [Ratio] 0.0 % [facility] Platelet mean volume (Bld) [Entitic vol] 10.4 fL 9.0 - 12.7 fL [facility] Platelets (Bld) [#/Vol] 87 10*3/uL Low 140 - 440 10*3/uL [facility] RBC (Bld) [#/Vol] 2.81 10*6/uL Low 3.80 - 5.2 0 10*6/uL [facility] WBC (Bld) [#/Vol] 3.4 10*3/uL Low 3.6 - 10.7 10*3/uL [facility] CBC WITH AUTO DIFFERENTIALon 08-12-2023 Basophils (Bld) [#/Vol] 0.0 10*3/uL Normal 0.0-0.2 [facility] Comment on above: Performed By: #### L [id number] #### Endoscopy Support Specialist: RADHA NOGUEIRA ([phone]) [facility] ([facility]) [address] [place] [address] Basophils/100 WBC (Bld) 0.3 % Normal 0.0-2.0 [facility] Comment on above: Performed By: #### L [id number] #### Endoscopy Support Specialist: RADHA NOGUEIRA ([phone]) [facility]) [address] [place] [address] [place] Eosinophils (Bld) [#/Vol] 0.1 10*3/uL Normal 0.0-0.5 [facility] Comment on above: Performed By: #### L [id number] #### Endoscopy Support Specialist: RADHA NOGUEIRA ([phone]) [facility]) [address] [place] [address] Eosinophils/100 WBC (Bld) 1.8 % Normal 0.0-6.0 [facility] Comment on above: Performed By: #### L [id number] #### Endoscopy Support Specialist: RADHA NOGUEIRA ([phone]) [facility]) [address] [place] [address] Erythrocyte distribution width (RBC) [Ratio] 16.0 % High 11.5-15.0 [facility] Comment on above: Performed By: #### L [id number] #### Endoscopy Support Specialist: RADHA NOGUEIRA ([phone]) [facility]) [address] [place] [address] Hematocrit (Bld) [Volume fraction] 24.9 % Low 35.0-47.0 [facility] Comment on above: Performed By: #### L [id number] #### Endoscopy Support Specialist: RADHA NOGUEIRA ([id number]) [facility]) [address] [place] [address] Hemoglobin (Bld) [Mass/Vol] 7.8 g/dL Low 11.7-16.0 [facility] Comment on above: Performed By: #### L [id number] #### Endoscopy Support Specialist: RADHA NOGUEIRA ([phone]) [facility]) [address] [place] [address] IMMATURE GRANS % 0.6 % Normal 0.0-2.0 [facility] Comment on above: Performed By: #### L [id number] #### Endoscopy Support Specialist: RADHA NOGUEIRA ([phone]) [facility]) [address] [place] [address] IMMATURE GRANS ABSOLUTE 0.0 10*3/uL Normal <0.1 [facility] Comment on above: Performed By: #### L [id number] #### Endoscopy Support Specialist: RADHA NOGUEIRA ([phone]) [facility]) [address] [place] [address] [place] IPF 2 Normal [facility] Comment on above: Performed By: #### L [id number] #### Endoscopy Support Specialist: RADHA NOGUEIRA ([phone]) [facility]) [address] [place] [address] Lymphocytes (Bld) [#/Vol] 0.4 10*3/uL Low 1.0-4.3 [facility] Comment on above: Performed By: #### L [id number] #### Endoscopy Support Specialist: RADHA NOGUEIRA ([phone]) [facility]) [address] [place] [address] Lymphocytes/100 WBC (Bld) 12.8 % Low 15.0-45.0 [facility] Comment on above: Performed By: #### L [id number] #### Endoscopy Support Specialist: RADHA NOGUEIRA ([phone]) [facility]) [address] [place] [address] MCH (RBC) [Entitic mass] 27.8 pg Normal 26.0-34.0 [facility] Comment on above: Performed By: #### L [id number] #### Endoscopy Support Specialist: RADHA NOGUEIRA ([phone]) [facility] ([facility]) [address] [place] [address] MCHC 31.3 % Normal 30.5-36.0 [facility] Comment on above: Performed By: #### L [id number] #### Endoscopy Support Specialist: RADHA NOGUEIRA ([phone]) [facility] ([facility]) [address] [place] [address] MCV (RBC) [Entitic vol] 88.6 fL Normal 77.0-99.0 [facility] Comment on above: Performed By: #### L [id number] #### Endoscopy Support Specialist: RADHA NOGUEIRA ([phone]) [facility]) [address] [place] [address] Monocytes (Bld) [#/Vol] 0.3 10*3/uL Normal 0.0-0.9 [facility] Comment on above: Performed By: #### L [id number] #### Endoscopy Support Specialist: RADHA NOGUEIRA ([phone]) [facility]) [address] [place] [address] Monocytes/100 WBC (Bld) 8.7 % Normal 5.0-13.0 [facility] Comment on above: Performed By: #### L [id number] #### Endoscopy Support Specialist: RADHA NOGUEIRA ([phone]) [facility] ([facility]) [address] [place] [address] NEUTROPHILS ABSOLUTE 2.5 10*3/uL Normal 1.8-7.5 [facility] Comment on above: Performed By: #### L [id number] #### Endoscopy Support Specialist: RADHA NOGUEIRA ([phone]) [facility]) [address] [place] [address] Neutrophils/100 WBC (Bld) 75.8 % Normal 38.0-82.0 [facility] Comment on above: Performed By: #### L [id number] #### Endoscopy Support Specialist: RADHA NOGUEIRA ([phone]) [facility] ([facility]) [address] [place] [address] NRBC 0.0 /100 WBCs Normal 0.0-2.0 [facility] Comment on above: Performed By: #### L [id number] #### Endoscopy Support Specialist: RADHA NOGUEIRA ([phone]) [facility] ([facility]) [address] [place] [address] Platelet mean volume (Bld) [Entitic vol] 10.4 fL Normal 9.0-12.7 [facility] Comment on above: Performed By: #### L [id number] #### Endoscopy Support Specialist: RADHA NOGUEIRA ([phone]) [facility] ([facility]) [address] [place] [address] Platelets (Bld) [#/Vol] 87 10*3/uL Low 140-440 [facility] Comment on above: Performed By: #### L [id number] #### Endoscopy Support Specialist: RADHA NOGUEIRA ([phone]) [facility] ([facility]) [address] [place] [address] RBC (Bld) [#/Vol] 2.81 10*6/uL Low 3.80-5.20 [facility] Comment on above: Performed By: #### L [id number] #### Endoscopy Support Specialist: RADHA NOGUEIRA ([id number]) [facility] ([facility]) [address] [place] [address] WBC (Bld) [#/Vol] 3.4 10*3/uL Low 3.6-10.7 [facility] Comment on above: Performed By: #### L [id number] #### Endoscopy Support Specialist: RADHA NOGUEIRA ([phone]) [facility] ([facility]) [address] [place] [address] Free T4 [Mass/Vol]on 024 Free T4 Dialysis [Mass/Vol] 1.15 ng/dL 0.78 - 2.19 ng/dL [facility] Interpretation and review of laboratory results Normal [facility] IDNon 08-12-2023 IDN Problem: Pain - Adul t Goal: Verbalizes/displays adequate comfort level or baseline comfort level Outcome: Progressing Problem: Chronic Conditions and Co-morbidities Goal: Patient's chronic conditions and co-morbidity symptoms are monitored and maintained or improved Outcome: Progressing Normal [facility] Laboratory - Chemistry and C hemistry - challengeon 08-12-2023 Magnesium [Mass/Vol] 2.1 mg/dL 1.6 - 2 .3 mg/dL [facility] MAGNESIUMon 08-12-2023 Magnesium [Mass/Vol] 2.1 mg/dL Normal 1.6-2.3 [facility] Comment on above: Performed By: #### L [id number], [id number] ####Endoscopy Support Specialist: RADHA NOGUEIRA ([phone])[facility] ([address] Magnesium [Mass/Vol]on 08-11 Interpretation and review of laboratory results Normal [facility] Progress Noteon 08-12-2023 Progress Note PHYSICAL THERAPY [facility] Treatment Note Name/MRN: Kayce Hogan ([id number]) Date of : 1960 Age: 62 y.o. Room[facility]Bed: [facility] A Discharge Recommendation: Group Home Facility Equipment Needed: No Prior Level of Function ADL Assistance: Needs Assist Ambulation Assistance: Independent Device(s) used: rollator Transfer Assistance: Independent Assessment Pt mod assist x 2 skilled therapist for all functional mobility to safely progress patient towards functional goals. Increase time to complete task. Pt tearful at times. Difficulty with word finding. Decrease safety awareness and at risk for falls. Rec SNF upon discharge. Subjective Pt in bed, agreeable to PT. Tearful, not sure when she last had her pain meds. Pain: 0-10 pain scale: 8/10 Location: back Medical Precautions: No active isolations Proper PPE donned/doffed in accordance with facility standards. Fall Risk: [place] Fall Risk Score: 100 (High Risk) Precautions/Restrictions : Other Position/Activity Restriction: ROM as shan, WBAT per chart review, per ortho note no immobilization needed but pt brought brace from home. Lines/Drains/Airways: PIV, compression pumps, 2 L O2 NC Overall Cognitive Status: Exceptions - Following commands: follows one step commands with increased time and inconsistently follows commands - Attention span: difficulty attending to directions - Safety judgement: decreased awareness of need for assistance and decreased awareness of need for safety - Problem solving: assistance required to generate solutions, assistance required to implement solutions, assistance required to identify errors made, assistance required to correct errors made, and decreased awareness of errors - Insights: decreased awareness of deficits - Initiation: requires cues for all - Sequencing: requires cues for some Overall Orientation Status: Oriented to Person Family/Caregiver Present: none Objective Ambulation Ambulation 1 Assistive device(s) used: front wheeled walker Assist level: Mod Assist, x2 Person Assist Distance (ft): 15ft Quality of gait: uneven step length, wide BRETT, slow james, instability through all phases, cues for sequencing, assist for walker management, poor safety awareness, cues for direction. Ambulation 2 Assistive device(s) used: front wheeled walker Assist level: Mod Assist, x2 Person Assist Distance (ft): 10ft Quality of gait: uneven step length, slow james, instability through all phases, assist with walker management, cues for sequencing, increase time required. Transfers/Mobility Sit to stand: Mod Assist, x2 Person Assist Stand to sit: Mod Assist, x2 Person Assist X 2 reps; EOB and toilet. Cues for hand placement and sequencing. Device(s) used: front wheeled walker Exercises Exercises Heelslides: x 5 reps each Gluteal Sets: x 10 reps Knee Long Arc Quad: x 10 reps each Ankle Pumps: x 10 reps each Other exercises Other exercises?: Yes Other exercises 1: I.S. x 8 reps, 1500mL Bed Mobility Supine to sit: Mod Assist, x2 Person Assist Rolling to right: Min Assist Scooting: Min Assist HOB elevated, bed rails used. Increase time. Cues for sequencing. Balance: seated at EOB, UE support, no c/o dizziness, min assist for balance and safety, pt with postural sway. Standing with FWW, wide BRETT, postural sway, varied between min/mod assist x 2 for balance and safety. Plan Continue acute PT per plan of care. Safety/Education Safety Safety Devices in place: call light within reach, left in chair, chair alarm in place, gait belt, patient at risk for falls, and nurse notified Restraints: No Education Education Given To: patient Education Provided: PT Goals, Gait Training, Plan of Care, Home Exercise Program, Precautions, Transfer Training, Fall Prevention Education, Discharge Recommendations, Benefits of Increasing Activity, and Breathing Techniques Education Method: Verbal Barriers to Learning: Cognition Education Outcome: Continued Education Needed Outcome Measures AM-PAC AM-PAC Inpatient Mobility Raw Score (No Stairs) : 10 JH-HLM JH-HLM Score: Walked 25 ft or more (i.e. walked outside of room) Goals Patient Stated Goal: none stated Encounter Problems Encounter Problems (Active) Balance Patient will maintain static standing balance for 2-3 minutes with supervision in order to demonstrate decreased risk of falling. (Progressing) Start: 08/10/23 Expected End: 08/24/23 Patient will maintain static sitting balance for 2-3 minutes with supervision in order to demonstrate improved postural control and prepare for out of bed mobility. (Progressing) Start: 08/10/23 Expected End: 08/24/23 Mobility Patient will ambulate 50 feet with min assist and rolling walker in order to improve safety and independence with mobility. (Progressing) Start: 08/10/23 Expected End: 08/24/23 Pain - Adult Transfers Patient (more content not included)... Normal [facility] BASIC METABOLIC PANELon 03-0 Anion gap [Moles/Vol] 4 mmol/L Normal 3-13 [facility] Comment on above: Performed By: #### L AB129, LAB15, LAB67 ####Endoscopy Support Specialist: RADHA NOGUEIRA ([phone])[address] Calcium [Mass/Vol] 8.4 mg/dL Normal 8.4-10.4 [facility] Comment on above: Performed By: #### L AB129, LAB15, LAB67 ####Endoscopy Support Specialist: RADHA NOGUEIRA ([phone])[address] Chloride [Moles/Vol] 102 mmol/L Normal 98-107 [facility] Comment on above: Performed By: #### L AB129, LAB15, LAB67 ####Endoscopy Support Specialist: RADHA [phone])[facility])[address] [place] [address] CO2 [Moles/Vol] 27 mmol/L Normal 22-30 [facility] Comment on above: Performed By: #### L AB129, LAB15, LAB67 ####Endoscopy Support Specialist: RADHA NOGUEIRA ([phone])[facility])[address] [place] [address] Creatinine [Mass/Vol] 1.20 mg/dL High 0.52-1.04 [facility] Comment on above: Performed By: #### L AB129, LAB15, LAB67 ####Endoscopy Support Specialist: RADHA NOGUEIRA ([phone])[facility])[address] [place] [address] GLOMERULAR FILTRATION RATE ML/MIN/1.73 SQ M.PREDICTED 51.6 mL/min/1.73m*2 Low >60.0 [facility] Comment on above: Result Comment: Calc ulation based on the Chronic Kidney Disease Epidemiology Collaboration (CKD-EPI) equation refit without adjustment for race Performed By: #### L AB129, LAB15, LAB67 ####Endoscopy Support Specialist: RADHA NOGUEIRA ([phone])[facility] ([facility])[address] [place] [address] Glucose [Mass/Vol] 114 mg/dL High 70-100 [facility] Comment on above: Performed By: #### L AB129, LAB15, LAB67 ####Endoscopy Support Specialist: RADHA NOGUEIRA ([phone])[facility])[address] [place] [address] [place] Potassium [Moles/Vol] 3.3 mmol/L Low 3.5-5.1 [facility] Comment on above: Performed By: #### L AB129, LAB15, LAB67 ####Endoscopy Support Specialist: RADHA NOGUEIRA ([phone])[facility])[address] [place] [address] Sodium [Moles/Vol] 133 mmol/L Low 135-145 [facility] Comment on above: Performed By: #### L AB129, LAB15, LAB67 ####Endoscopy Support Specialist: RADHA NOGUEIRA ([phone])[facility] [place] [address] Urea nitrogen [Mass/Vol] 21 mg/dL High 7-17 [facility] Comment on above: Performed By: #### L AB129, LAB15, LAB67 ####Endoscopy Support Specialist: RADHA NOGUEIRA ([phone])[facility] ([facility])[address] [place] [address] Basic metabolic 1998 panelon 08-11-2023 Anion gap [Moles/Vol] 4 mmol/L 3 - 13 mmol/L [facility] Calcium [Mass/Vol] 8.4 mg/dL 8.4 - 10. 4 mg/dL [facility] Chloride [Moles/Vol] 102 mmol/L 98 - 10 7 mmol/L [facility] CO2 [Moles/Vol] 27 mmol/L 22 - 30 mmol/L [facility] Creatinine [Mass/Vol] 1.20 mg/dL High 0.52 - 1.04 mg/dL [facility] GFR/1.73 sq M.predicted MDRD (S/P/Bld) [Vol rate/Area] 51.6 mL/min/{1.73_m2} Low - PINF [facility] Comment on above: Calculation based on the Chronic Kidney Disease Epidemiology Collaboration (CKD-EPI) equation refit without adjustment for race Glucose [Mass/Vol] 114 mg/dL High 70 - 100 mg/dL [facility] Interpretation and review of laboratory results Abnormal [facility] Potassium [Moles/Vol] 3.3 mmol/L Low 3.5 - 5.1 mmol/L [facility] Sodium [Moles/Vol] 133 mmol/L Low 135 - 145 mmol/L [facility] Urea nitrogen [Mass/Vol] 21 mg/dL High 7 - 17 mg/dL [facility] CARECOORDon 08-11-2023 [facility] tasked to follow this patient over the weekend. Auth started at [email or web address]. Message sent to facility regarding auth status. Awaiting response. TCC to continue to follow. Normal [facility] CBC W Auto Differential pane l (Bld)Ordered By: Beck Benton on 08-11-2023 Basophils (Bld) [#/Vol] 0.0 10*3/uL 0.0 - 0.2 10*3/uL [facility] Basophils/100 WBC (Bld) 0.0 % 0.0 - 2.0 % [facility] Eosinophils (Bld) [#/Vol] 0.0 10*3/uL 0.0 - 0.5 10*3/uL [facility] Eosinophils/100 WBC (Bld) 0.0 % 0.0 - 6.0 % [facility] Erythrocyte distribution width (RBC) [Ratio] 14.8 % 11.5 - 15.0 % [facility] Hematocrit (Bld) [Volume fraction] 21.2 % Low 35.0 - 47.0 % [facility] Hemoglobin (Bld) [Mass/Vol] 6.5 g/dL Critically low 11.7 - 16.0 g/dL [facility] Immature granulocytes (Bld) [#/Vol] 0.0 10*3/uL NINF - 0.1 10*3/uL [facility] Immature granulocytes/100 WBC (Bld) 0.5 % 0.0 - 2.0 % [facility] Interpretation and review of laboratory results Abnormal [facility] Lymphocytes (Bld) [#/Vol] 0.5 10*3/uL Low 1.0 - 4.3 10*3/uL [facility] Lymphocytes/100 WBC (Bld) 11.3 % Low 15.0 - 45.0 % [facility] MCH (RBC) [Entitic mass] 27.3 pg 26.0 - 34.0 pg [facility] MCHC (RBC) [Mass/Vol] 30.7 % 30.5 - 36.0 % [facility] MCV (RBC) [Entitic vol] 89.1 fL 77.0 - 99.0 fL [facility] Monocytes (Bld) [#/Vol] 0.4 10*3/uL 0.0 - 0.9 10*3/uL [facility] Monocytes/100 WBC (Bld) 9.3 % 5.0 - 13.0 % [facility] Neutrophils (Bld) [#/Vol] 3.1 10*3/uL 1.8 - 7.5 10*3/uL [facility] Neutrophils/100 WBC (Bld) 78.9 % 38.0 - 82.0 % [facility] Nucleated RBC/100 WBC (Bld) [Ratio] 0.0 % [facility] Platelet mean volume (Bld) [Entitic vol] 10.8 fL 9.0 - 12.7 fL [facility] Platelets (Bld) [#/Vol] 116 10*3/uL Low 140 - 440 10*3/uL [facility] RBC (Bld) [#/Vol] 2.38 10*6/uL Low 3.80 - 5.2 0 10*6/uL [facility] WBC (Bld) [#/Vol] 4.0 10*3/uL 3.6 - 10.7 10*3/uL [facility] CBC WITH AUTO DIFFERENTIALon 08-11-2023 Basophils (Bld) [#/Vol] 0.0 10*3/uL Normal 0.0-0.2 [facility] Comment on above: Performed By: #### L [id number] #### Endoscopy Support Specialist: RADHA NOGUEIRA ([phone]) [facility] ([facility]) [address] [place] [address] Basophils/100 WBC (Bld) 0.0 % Normal 0.0-2.0 [facility] Comment on above: Performed By: #### L [id number] #### Endoscopy Support Specialist: RADHA NOGUEIRA ([phone]) [facility] ([facility]) [address] [place] [address] Eosinophils (Bld) [#/Vol] 0.0 10*3/uL Normal 0.0-0.5 [facility] Comment on above: Performed By: #### L [id number] #### Endoscopy Support Specialist: RADHA NOGUEIRA ([phone]) [facility] ([facility]) [address] [place] [address] Eosinophils/100 WBC (Bld) 0.0 % Normal 0.0-6.0 [facility] Comment on above: Performed By: #### L [id number] #### Endoscopy Support Specialist: RADHA NOGUEIRA ([phone]) [facility] ([facility]) [address] [place] [address] [place] Erythrocyte distribution width (RBC) [Ratio] 14.8 % Normal 11.5-15.0 [facility] Comment on above: Performed By: #### L [id number] #### Endoscopy Support Specialist: RADHA NOGUEIRA ([phone]) [facility]) [address] [place] [address] Hematocrit (Bld) [Volume fraction] 21.2 % Low 35.0-47.0 [facility] Comment on above: Performed By: #### L [id number] #### Endoscopy Support Specialist: RADHA NOGUEIRA ([phone]) [facility]) [address] [place] [address] Hemoglobin (Bld) [Mass/Vol] 6.5 g/dL Critically low 11.7-16.0 [facility] Comment on above: Performed By: #### L [id number] #### Endoscopy Support Specialist: RADHA NOGUEIRA ([phone]) [facility]) [address] [place] [address] IMMATURE GRANS % 0.5 % Normal 0.0-2.0 [facility] Comment on above: Performed By: #### L [id number] #### Endoscopy Support Specialist: RADHA NOGUEIRA ([phone]) [facility]) [address] [place] [address] IMMATURE GRANS ABSOLUTE 0.0 10*3/uL Normal <0.1 [facility] Comment on above: Performed By: #### L [id number] #### Endoscopy Support Specialist: RADHA NOGUEIRA ([phone]) [facility]) [address] [place] [address] [place] Lymphocytes (Bld) [#/Vol] 0.5 10*3/uL Low 1.0-4.3 [facility] Comment on above: Performed By: #### L [id number] #### Endoscopy Support Specialist: RADHA NOGUEIRA ([phone]) [facility]) [address] [place] [address] [place] Lymphocytes/100 WBC (Bld) 11.3 % Low 15.0-45.0 [facility] Comment on above: Performed By: #### L [id number] #### Endoscopy Support Specialist: RADHA NOGUEIRA ([phone]) [facility] ([facility]) [address] [place] [address] MCH (RBC) [Entitic mass] 27.3 pg Normal 26.0-34.0 [facility] Comment on above: Performed By: #### L [id number] #### Endoscopy Support Specialist: RADHA NOGUEIRA ([phone]) [facility]) [address] [place] [address] MCHC 30.7 % Normal 30.5-36.0 [facility] Comment on above: Performed By: #### L [id number] #### Endoscopy Support Specialist: RADHA NOGUEIRA ([phone]) [facility]) [address] [place] [address] MCV (RBC) [Entitic vol] 89.1 fL Normal 77.0-99.0 [facility] Comment on above: Performed By: #### L [id number] #### Endoscopy Support Specialist: RADHA NOGUEIRA ([phone]) [facility] ([facility]) [address] [place] [address] Monocytes (Bld) [#/Vol] 0.4 10*3/uL Normal 0.0-0.9 [facility] Comment on above: Performed By: #### L [id number] #### Endoscopy Support Specialist: RADHA NOGUEIRA ([phone]) [facility]) [address] [place] [address] Monocytes/100 WBC (Bld) 9.3 % Normal 5.0-13.0 [facility] Comment on above: Performed By: #### L [id number] #### Endoscopy Support Specialist: RADHA NOGUEIRA ([phone]) [facility]) [address] [place] [address] NEUTROPHILS ABSOLUTE 3.1 10*3/uL Normal 1.8-7.5 [facility] Comment on above: Performed By: #### L [id number] #### Endoscopy Support Specialist: RADHA NOGUEIRA ([phone]) [facility] [address] [place] [address] Neutrophils/100 WBC (Bld) 78.9 % Normal 38.0-82.0 [facility] Comment on above: Performed By: #### L [id number] #### Endoscopy Support Specialist: RADHA NOGUEIRA ([phone]) [facility] [address] [place] [address] NRBC 0.0 /100 WBCs Normal 0.0-2.0 [facility] Comment on above: Performed By: #### L [id number] #### Endoscopy Support Specialist: RADHA NOGUEIRA ([phone]) [facility] ([facility]) [address] [place] [address] Platelet mean volume (Bld) [Entitic vol] 10.8 fL Normal 9.0-12.7 [facility] Comment on above: Performed By: #### L [id number] #### Endoscopy Support Specialist: RADHA NOGUEIRA ([phone]) [facility] [address] [place] [address] Platelets (Bld) [#/Vol] 116 10*3/uL Low 140-440 [facility] Comment on above: Performed By: #### L [id number] #### Endoscopy Support Specialist: RADHA NOGUEIRA ([phone]) [facility] [address] [place] [address] RBC (Bld) [#/Vol] 2.38 10*6/uL Low 3.80-5.20 [facility] Comment on above: Performed By: #### L [id number] #### Endoscopy Support Specialist: RADHA NOGUEIRA ([phone]) [facility] [address] [place] [address] [place] WBC (Bld) [#/Vol] 4.0 10*3/uL Normal 3.6-10.7 [facility] Comment on above: Performed By: #### L [id number] #### Endoscopy Support Specialist: RADHA NOGUEIRA ([phone]) [facility] [address] [place] [address] Cobalamin (Vitamin B12) [Mas s/Vol]on 08-11-2023 Interpretation and review of laboratory results Normal [facility] HEMOGLOBIN AND HEMATOCRIT, B LOODon 08-11-2023 Hematocrit (Bld) [Volume fraction] 24.8 % Low 35.0-47.0 [facility] Comment on above: Order Comment: Recom mend 1 hour post transfusion Performed By: #### L [id number] ####Endoscopy Support Specialist: RADHA NOGUEIRA ([phone])[facility])[address] [place] [address] Hemoglobin (Bld) [Mass/Vol] 7.9 g/dL Low 11.7-16.0 [facility] Comment on above: Order Comment: Recom mend 1 hour post transfusion Performed By: #### L [id number] ####Endoscopy Support Specialist: RADHA NOGUEIRA ([phone])[facility])[address] [place] [address] Hematocrit (Bld) [Volume fraction] 22.4 % Low 35.0-47.0 [facility] Comment on above: Order Comment: Recom mend 1 hour post transfusion Performed By: #### L [id number] ####Endoscopy Support Specialist: RADHA NOGUEIRA ([phone])[facility])[address] [place] [address] Hemoglobin (Bld) [Mass/Vol] 6.9 g/dL Critically low 11.7-16.0 [facility] Comment on above: Order Comment: Recom mend 1 hour post transfusion Performed By: #### L [id number] ####Endoscopy Support Specialist: RADHA NOGUEIRA ([phone])[facility])[address] [place] [address] [place] Hemoglobin (Bld) [Mass/Vol]O rdered By: Suzie Santos on 08-11-2023 Hematocrit (Bld) [Volume fraction] 24.8 % Low 35.0 - 47.0 % [facility] Interpretation and review of laboratory results Abnormal [facility] Hemoglobin (Bld) [Mass/Vol]O rdered By: Karla Hogan on 08-11-2023 Hematocrit (Bld) [Volume fraction] 22.4 % Low 35.0 - 47.0 % [facility] Interpretation and review of laboratory results Abnormal [facility] Laboratory - Chemistry and C hemistry - challengeon 08-11-2023 Cobalamin (Vitamin B12) [Mass/Vol] 310 pg/mL 239 - 931 pg/mL [facility] TSH Qn 0.324 m[IU]/L Low [facility] - Hematology and Cell countsOrdered By: Suzie Santos on 08-11-2023 Hemoglobin (Bld) [Mass/Vol] 7.9 g/dL Low 11.7 - 16.0 g/dL [facility] - Hematology and Cell countsOrdered By: Karla Hogan on 08-11-2023 Hemoglobin (Bld) [Mass/Vol] 6.9 g/dL Critically low 11.7 - 16.0 g/dL [facility] No Panel Informationon 08-10 Blood Expiration Date S [facility] Crossmatch interpretation COMP [facility] Dispense Status Transfused [facility] Product Blood Type 9500 [facility] PRODUCT CODE [id number] [facility] ABO O [facility] Unit Number [id number] [facility] RH Negative [facility] Volume 300 mL [facility] Blood Expiration Date [id number] S [facility] Crossmatch interpretation COMP [facility] Dispense Status Transfused [facility] Product Blood Type 600 [facility] PRODUCT CODE [id number] [facility] ABO A [facility] Unit Number [id number] [facility] Unit RH Negative [facility] Unit Volume 300 mL [facility] Progress Noteon 08-11-2023 Progress Note Nutrition rescreen completed. Chart reviewed. Patient to be monitored and followed by the diet special effects technician. Aliya Hoff, KANE Normal [facility] Progress Note PHYSICAL THERAPY [facility] Name/MRN: Kayce Hogan ([id number]) Date: 08/11/2023 Per RN, Pt w/ low BP, confusion and additional unit of PRBC ordered for low hgb. Will hold PT at this time until Pt is more medically stable for PT. Manjit Rocha, CORPORATE AUDITOR Normal [facility] Progress Note PAGING: The Acute Pa in Service providers are available exclusively via [employer] SECURE CHAT. APS does not utilize pagers. 08/11/2023 Lab Results Component Value Date CREATININE 1.20 (H) 08/11/2023 CREATININE 0.89 06/07/2022 AST 36 (H) 06/07/2022 ALT 25 06/07/2022 Discharge Recommendations: Percocet 5/325. 1 tab q6h prn Pain Management Adjuvants: 0700 --> 0700 08/09/2023 08/10/23 Scheduled APAP 2300 mg 1950mg Lidocaine patches PRN Hydromorphone IV 2.3 mg 0.5mg Methocarbamol 0 mg Oxycodone 25 mg 35mg Assessment / Pain Management Plan: Pt's pain is conrolled Is very frustrated with discharge process Recs made, will sign off. Thank you for inviting us to participate in the care of this patient. Acute Postsurgical Back pain Multimodal pain regimen: BLOCK: n/a Continue Acetaminophen 650 mg po q6h scheduled ATC. Liver enzymes WNL, last checked: 06/07/22 Continue Lidocaine patch x 1. Cut and place as needed. Continue Hydromorphone 0.25 mg - 0.5 mg IVP q4h prn moderate to severe breakthrough pain. Please utilize oral medications first. Continue Methocarbamol 1000 mg PO TID PRN. Continue Oxycodone 5 - 10 mg po q4h prn moderate to severe breakthrough pain. Continue Naloxone 0.4 mg IVP prn opioid reversal. PRN if respiratory rate is less than 6/min and patient is difficult to arouse then notify physician STAT. Mix 9 mL of sodium chloride 0.9% with 0.4 mg (1 mL) of naloxone (NARCAN) in 10 mL syringe. (Note: dilution is 0.04 mg/mL) Give 0.08 mg (2 mL of special dilution), slow IV push, repeat up to 0.4 mg (10 mL) or until patient is responsive to physical stimulation and respiratory rate is equal to or greater than 6 breaths/min. Continue to observe, if no response within 3 minutes of administration of 0.4 mg (10 mL) total, repeat dose (0.4 mg as administered previously). Spinal stenosis, lumbar region Pt is s/p T11-L3 PSF, L2 lami, JEAN L3-L5 08/08 See #1 ETOH dependence Another provider on this service was told in hallway by visitor that patient has addiction problem. ADM was consulted and saw patient 08/10/23 No evidence of alcohol withdrawal, concern for anxiety. Ativan ordered by ADM. Signed off. Appreciate input. GENNARO At risk for respiratory depression in setting of opioid use Currently on 2L NC O2 Continue to monitor, maintain O2 > 89-92% Opioid Use Acute: Expected to be short term post op pain, see #1 OARRS reviewed for past two years. (No opiates RX filled) Reviewed and educated patient on responsible use of opioids: after surgery, it can be normal to experience pain. If it is mild and you can move about without great difficulty or discomfort, you may not need to take pain medication. It is very important to take your pain medication only as needed. Avoiding excessive or unnecessary medication, will enable you to progress your activity each day to improve your muscle tone and movement, deep breathing, digestion, circulation and your body's ability to heal itself. Constipation At risk for opioid induced constipation Patient currently receiving opioids for pain management necessitating a bowel regimen. Recommend initiating scheduled Sennakot-S 8.6/50mg, 1 tablet PO BID. Would also recommend Milk of Magnesia 400mg/5ml, administer 30mL by mouth daily PRN. - Chief Complaint: Back pain History of Present Illness: We have been asked to see this 62 y.o. female for postoperative pain management s/p T11-L3 PSF, L2 lami, JEAN L3-L5 08/09/23 Reviewed EKG 08/02/23 RUTH, no pages. Pt is extremely short with this provider. When asked about pain level it's wicked When asked if pain medications are working hard to say Visibly, she is moving all extremities and tearful. When asked what is wrong she Is at first silent and does not answer the question. Explained to patient that this provider is here to help and would like to know what's going on She states that she is frustrated, thought she would be at skilled nursing by now. Then states that her pain is controlled with the pain medications that she is given. I'm such an IDIOT for responding the way I did RN Then arrived to room. Patient states she doesn't want to be a pain in the.... This provider and RN provided reassurance to patient. Denies f/c, sp, sob, n/v/d Pain Location: Back Aggravating Factors: Moving Sedation score: 1: Awake and alert Pain Severity: severe Pain Quality: does not describe Alleviating Factors: Rest/Pain medications Objective Findings: REVIEW OF SYSTEMS: Pertinent positives as noted in the HPI. All other systems reviewed and negative. PHYSICAL EXAM: Vitals: BP 98/76 Pulse 98 Temp 36.6 ?C (97.8 ?F) Resp 16 SpO2 98% BMI Classification: not documented General appearance: No apparent distress, appears stated age and cooperative. HEENT: Normal cephalic, atraumatic without obvious deformity. Pup (more content not included)... Normal [facility] THYROID STIMULATING HORMONEo n 08-11-2023 THYROID STIMULATING HORMONE 0.324 uIU/mL Low 0.465-4.680 [facility] Comment on above: Performed By: #### L AB129, LAB15, LAB67 ####Endoscopy Support Specialist: RADHA NOGUEIRA ([phone])[address] TSH Qnon 08-11-2023 Interpretation and review of laboratory results Abnormal [facility] VITAMIN B12on 08-11-2023 Cobalamin (Vitamin B12) [Mass/Vol] 310 pg/mL Normal 239-931 [facility] Comment on above: Performed By: #### L AB129, LAB15, LAB67 ####Endoscopy Support Specialist: RADHA NOGUEIRA ([phone])[address] BASIC METABOLIC PANELon 03- Anion gap [Moles/Vol] 11 mmol/L Normal 3-13 [facility] Comment on above: Performed By: #### L AB46, LAB15, LAB68 ####Endoscopy Support Specialist: RADHA NOGUEIRA ([phone])[address] [place] [address] [place] Calcium [Mass/Vol] 8.4 mg/dL Normal 8.4-10.4 [facility] Comment on above: Performed By: #### Norma AB46, LAB15, LAB68 ####Endoscopy Support Specialist: RADHA NOGUEIRA ([phone])[facility] [place] [address] Chloride [Moles/Vol] 99 mmol/L Normal 98-107 [facility] Comment on above: Performed By: #### L AB46, LAB15, LAB68 ####Endoscopy Support Specialist: RADHA NOGUEIRA ([phone])[facility] ([facility])[address] [place] [address] CO2 [Moles/Vol] 22 mmol/L Normal 22-30 [facility] Comment on above: Performed By: #### Norma SALEH46, LAB15, LAB68 ####Endoscopy Support Specialist: RADHA NOGUEIRA ([phone])[facility] ([facility])[address] [place] [address] Creatinine [Mass/Vol] 1.20 mg/dL High 0.52-1.04 [facility] Comment on above: Performed By: #### Norma SALEH46, LAB15, LAB68 ####Endoscopy Support Specialist: RADHA NOGUEIRA ([phone])[facility] ([facility])[address] [place] [address] [place] GLOMERULAR FILTRATION RATE ML/MIN/1.73 SQ M.PREDICTED 51.6 mL/min/1.73m*2 Low >60.0 [facility] Comment on above: Result Comment: Calc ulation based on the Chronic Kidney Disease Epidemiology Collaboration (CKD-EPI) equation refit without adjustment for race Performed By: #### L AB46, LAB15, LAB68 ####Endoscopy Support Specialist: RADHA NOGUEIRA ([phone])[facility] ([facility])[address] [place] [address] Glucose [Mass/Vol] 130 mg/dL High 70-100 [facility] Comment on above: Performed By: #### Norma AB46, LAB15, LAB68 ####Endoscopy Support Specialist: RADHA NOGUEIRA ([phone])[facility] ([facility])[address] [place] [address] Potassium [Moles/Vol] 4.1 mmol/L Normal 3.5-5.1 [facility] Comment on above: Performed By: #### L AB46, LAB15, LAB68 ####Endoscopy Support Specialist: RADHA NOGUEIRA ([phone])[facility])[address] [place] [address] Sodium [Moles/Vol] 132 mmol/L Low 135-145 [facility] Comment on above: Performed By: #### L AB46, LAB15, LAB68 ####Endoscopy Support Specialist: RADHA NOGUEIRA ([phone])[facility])[address] [place] [address] Urea nitrogen [Mass/Vol] 17 mg/dL Normal 7-17 [facility] Comment on above: Performed By: #### L AB46, LAB15, LAB68 ####Endoscopy Support Specialist: RADHA NOGUEIRA ([phone])[facility] ([facility])[address] [place] [address] Basic metabolic 1998 panelon 08-10-2023 Anion gap [Moles/Vol] 11 mmol/L 3 - 13 mmol/L [facility] Calcium [Mass/Vol] 8.4 mg/dL 8.4 - 10. 4 mg/dL [facility] Chloride [Moles/Vol] 99 mmol/L 98 - 10 7 mmol/L [facility] CO2 [Moles/Vol] 22 mmol/L 22 - 30 mmol/L [facility] Creatinine [Mass/Vol] 1.20 mg/dL High 0.52 - 1.04 mg/dL [facility] GFR/1.73 sq M.predicted MDRD (S/P/Bld) [Vol rate/Area] 51.6 mL/min/{1.73_m2} Low - PINF [facility] Comment on above: Calculation based on the Chronic Kidney Disease Epidemiology Collaboration (CKD-EPI) equation refit without adjustment for race Glucose [Mass/Vol] 130 mg/dL High 70 - 100 mg/dL [facility] Interpretation and review of laboratory results Abnormal [facility] Potassium [Moles/Vol] 4.1 mmol/L 3.5 - 5.1 mmol/L [facility] Sodium [Moles/Vol] 132 mmol/L Low 135 - 145 mmol/L [facility] Urea nitrogen [Mass/Vol] 17 mg/dL 7 - 17 mg[facility]dL [facility] Iesha rudolph is able to accept patient, auth started. Weekend TCC tasked to follow. TCC to assist and follow as needed. Normal [facility] Care Managment Initi al Assessment Date: 08/10/2023 Patient Name: Alfie Hogan : 1960 Patient Information Source of Information: Patient Cognition/Language: WFL - Within Functional Limits Permission given to speak with patient medical field representative/caregiver as indicated: Yes Confirmation of Payer with patient/family: Yes Payer Name: [employer] Complete [place]: No Confirmation of Primary Care Physician: Confirmed PCP Name: Dr. Velasquez Seen in last 2 years?: Yes Primary Caregiver: Self If assistance needed, confirmed caregiver ready, willing and able to care for patient at discharge: Yes Confirmed with: Carlita Esparzael-sister Living Arrangements Current Residence: House Number of Floors 1 Number of Entry Steps: 2 Bed/Bath Levels: Both first floor Facility: Facility Name: Plan to Return: Lives with: (ex ) Support Systems: Family members Activities of Daily Living Ambulation: Independent Bathing/Dressing: Independent Elimination/Continence/T oileting: Independent Feeding: Independent Who Assists with Activities of Daily Living: Instrumental Activities of Daily Living Prescription Coverage: Yes Pharmacy Used: [facility] Medication Management: Independent Transportation/Shopping: Independent Transportation Mode: Car Needs Assistance with Transportation at Discharge: No Meal Preparation: Independent Laundry/Cleaning: Independent Finances/Bill Paying: Independent Communication: Independent Types of Care Services/Equipment Utilized Care Services: Dialysis Type: Durable Medical Equipment: Patient's Goal/Discharge Plan Patient expects to be discharged to: SNF Discharge Planning Actions: Group Home Facility referral indicated, Continue to follow Gates of choice: Gates of choice discussed Patient's Choice Rights and [employer] and Collaborative Relationships Disclosed as Indicated for Post-Acute Care: Yes Interdisciplinary Team Engagement: PT/OT Social Work Referral for: Additional Information: Patient admitted to H6 s/p removal of hardware lami fusion 08/09/2023. Reg diet noted. PT/OT eval noted. PT recommending snf. Met with pt at bedside, introduced self and explained role of TCC. Pt has insurance with RX coverage, active with PCP.Sister is in the room with patient, added as contact. Patient lives with ex-. Patient wants to go to a snf, first choice is [facility] and the second is the [facility]. NUCLEAR OPERATIONS SPECIALIST tasked to make referrals. Patient is tearful throughout visit. Discharge plan is snf. TCC to assist and follow as needed. '' Bre Parikh RN Normal [facility] CBC W Auto Differential pane l (Bld)Ordered By: May Valentine on 08-10-2023 Basophils (Bld) [#/Vol] 0.0 10*3/uL 0.0 - 0.2 10*3/uL [facility] Basophils/100 WBC (Bld) 0.2 % 0.0 - 2.0 % [facility] Eosinophils (Bld) [#/Vol] 0.0 10*3/uL 0.0 - 0.5 10*3/uL [facility] Eosinophils/100 WBC (Bld) 0.0 % 0.0 - 6.0 % [facility] Erythrocyte distribution width (RBC) [Ratio] 14.6 % 11.5 - 15.0 % [facility] Hematocrit (Bld) [Volume fraction] 24.7 % Low 35.0 - 47.0 % [facility] Hemoglobin (Bld) [Mass/Vol] 7.6 g/dL Low 11.7 - 16.0 g/dL [facility] Immature granulocytes (Bld) [#/Vol] 0.0 10*3/uL NINF - 0.1 10*3/uL [employer] [facility] Immature granulocytes/100 WBC (Bld) 0.4 % 0.0 - 2.0 % [facility] Interpretation and review of laboratory results Abnormal [facility] Lymphocytes (Bld) [#/Vol] 0.3 10*3/uL Low 1.0 - 4.3 10*3/uL [facility] Lymphocytes/100 WBC (Bld) 5.6 % Low 15.0 - 45.0 % [facility] MCH (RBC) [Entitic mass] 27.6 pg 26.0 - 34.0 pg [facility] MCHC (RBC) [Mass/Vol] 30.8 % 30.5 - 36.0 % [facility] MCV (RBC) [Entitic vol] 89.8 fL 77.0 - 99.0 fL [facility] Monocytes (Bld) [#/Vol] 0.2 10*3/uL 0.0 - 0.9 10*3/uL [facility] Monocytes/100 WBC (Bld) 3.9 % Low 5.0 - 13.0 % [facility] Neutrophils (Bld) [#/Vol] 4.8 10*3/uL 1.8 - 7.5 10*3/uL [facility] Neutrophils/100 WBC (Bld) 89.9 % High 38.0 - 82.0 % [facility] Nucleated RBC/100 WBC (Bld) [Ratio] 0.0 % [facility] Platelet mean volume (Bld) [Entitic vol] 10.9 fL 9.0 - 12.7 fL [facility] Platelets (Bld) [#/Vol] 123 10*3/uL Low 140 - 440 10*3/uL [facility] RBC (Bld) [#/Vol] 2.75 10*6/uL Low 3.80 - 5.2 0 10*6/uL [facility] WBC (Bld) [#/Vol] 5.3 10*3/uL 3.6 - 10.7 10*3/uL [facility] CBC WITH AUTO DIFFERENTIALon 08-10-2023 Basophils (Bld) [#/Vol] 0.0 10*3/uL Normal 0.0-0.2 [facility] Comment on above: Performed By: #### L [id number] ####Endoscopy Support Specialist: RADHA NOGUEIRA ([phone])[address] Basophils/100 WBC (Bld) 0.2 % Normal 0.0-2.0 [facility] Comment on above: Performed By: #### L [id number] ####Endoscopy Support Specialist: RADHA NOGUEIRA ([phone])[facility])[address] [place] [address] Eosinophils (Bld) [#/Vol] 0.0 10*3/uL Normal 0.0-0.5 [facility] Comment on above: Performed By: #### L [id number] ####Endoscopy Support Specialist: RADHA NOGUEIRA ([phone])[facility])[address] [place] [address] Eosinophils/100 WBC (Bld) 0.0 % Normal 0.0-6.0 [facility] Comment on above: Performed By: #### L [id number] ####Endoscopy Support Specialist: RADHA NOGUEIRA ([phone])[address] Erythrocyte distribution width (RBC) [Ratio] 14.6 % Normal 11.5-15.0 [facility] Comment on above: Performed By: #### L [id number] ####Endoscopy Support Specialist: RADHA NOGUEIRA ([phone])[address] Hematocrit (Bld) [Volume fraction] 24.7 % Low 35.0-47.0 [facility] Comment on above: Performed By: #### L [id number] ####Endoscopy Support Specialist: RADHA NOGUEIRA ([phone])[address] Hemoglobin (Bld) [Mass/Vol] 7.6 g/dL Low 11.7-16.0 [facility] Comment on above: Performed By: #### L [id number] ####Endoscopy Support Specialist: RADHA NOGUEIRA ([phone])[facility])[address] [place] [address] IMMATURE GRANS % 0.4 % Normal 0.0-2.0 [facility] Comment on above: Performed By: #### L [id number] ####Endoscopy Support Specialist: RADHA NOGUEIRA ([phone])[address] IMMATURE GRANS ABSOLUTE 0.0 10*3/uL Normal <0.1 [facility] Comment on above: Performed By: #### L [id number] ####Endoscopy Support Specialist: RADHA NOGUEIRA ([phone])[facility])[address] [place] [address] Lymphocytes (Bld) [#/Vol] 0.3 10*3/uL Low 1.0-4.3 [facility] Comment on above: Performed By: #### L [id number] ####Endoscopy Support Specialist: RADHA NOGUERIA ([phone])[facility])[address] [place] [address] Lymphocytes/100 WBC (Bld) 5.6 % Low 15.0-45.0 [facility] Comment on above: Performed By: #### L [id number] ####Endoscopy Support Specialist: RADHA NOGUEIRA ([phone])[facility])[address] [place] [address] MCH (RBC) [Entitic mass] 27.6 pg Normal 26.0-34.0 [facility] Comment on above: Performed By: #### L [id number] ####Endoscopy Support Specialist: RADHA NOGUEIRA ([phone])[facility])[address] [place] [address] MCHC 30.8 % Normal 30.5-36.0 [facility] Comment on above: Performed By: #### L [id number] ####Endoscopy Support Specialist: RADHA NOGUEIRA ([phone])[facility])[address] [place] [address] MCV (RBC) [Entitic vol] 89.8 fL Normal 77.0-99.0 [facility] Comment on above: Performed By: #### L [id number] ####Endoscopy Support Specialist: RADHA NOGUEIRA ([phone])[facility])[address] [place] [address] Monocytes (Bld) [#/Vol] 0.2 10*3/uL Normal 0.0-0.9 [facility] Comment on above: Performed By: #### L [id number] ####Endoscopy Support Specialist: RADHA NOGUEIRA ([phone])[facility] ([facility])[address] [place] [address] Monocytes/100 WBC (Bld) 3.9 % Low 5.0-13.0 [facility] Comment on above: Performed By: #### L [id number] ####Endoscopy Support Specialist: RADHA NOGUEIRA ([phone])[facility] ([facility])[address] [place] [address] NEUTROPHILS ABSOLUTE 4.8 10*3/uL Normal 1.8-7.5 [facility] Comment on above: Performed By: #### L [id number] ####Endoscopy Support Specialist: RADHA NOGUEIRA ([phone])[facility] ([facility])[address] [place] [address] Neutrophils/100 WBC (Bld) 89.9 % High 38.0-82.0 [facility] Comment on above: Performed By: #### L [id number] ####Endoscopy Support Specialist: RADHA NOGUEIRA ([phone])[facility] ([facility])[address] [place] [address] NRBC 0.0 /100 WBCs Normal 0.0-2.0 [facility] Comment on above: Performed By: #### L [id number] ####Endoscopy Support Specialist: RADHA NOGUEIRA ([phone])[facility] ([facility])[address] [place] [address] Platelet mean volume (Bld) [Entitic vol] 10.9 fL Normal 9.0-12.7 [facility] Comment on above: Performed By: #### L [id number] ####Endoscopy Support Specialist: RADHA NOGUEIRA ([phone])[facility])[address] [place] [address] Platelets (Bld) [#/Vol] 123 10*3/uL Low 140-440 [facility] Comment on above: Performed By: #### L [id number] ####Endoscopy Support Specialist: RADHA [id number])[facility] ([facility])[address] [place] [address] RBC (Bld) [#/Vol] 2.75 10*6/uL Low 3.80-5.20 [facility] Comment on above: Performed By: #### L [id number] ####Endoscopy Support Specialist: RADHA NOGUEIRA ([phone])[facility])[address] [place] [address] WBC (Bld) [#/Vol] 5.3 10*3/uL Normal 3.6-10.7 [facility] Comment on above: Performed By: #### L [id number] ####Endoscopy Support Specialist: RADHA NOGUEIRA ([phone])[facility] ([facility])[address] [place] [address] COMPLETE URINALYSISon 2023 BACTERIA (#/HPF) IN URINE Few Abnormal Negative [facility] Comment on above: Performed By: #### L [id number] #### Endoscopy Support Specialist: RADHA NOGUEIRA ([phone]) [facility] [address] [place] [address] BILIRUBIN, TOTAL PRESENCE IN URINE Negative Normal Negative [facility] Comment on above: Performed By: #### L [id number] #### Endoscopy Support Specialist: RADHA NOGUEIRA ([phone]) [facility] ([facility]) [address] [place] [address] Clarity (U) Slightly Cloudy Abnormal Clear [facility] Comment on above: Performed By: #### L [id number] #### Endoscopy Support Specialist: RADHA NOGUEIRA ([phone]) [facility] [address] [place] [address] Color (U) Dark Yellow Abnormal Lt. Yellow [facility] Comment on above: Performed By: #### L [id number] #### Endoscopy Support Specialist: RADHA NOGUEIRA ([id number]) [facility] [address] [place] [address] GLUCOSE (MG/DL) IN URINE Normal Normal Normal (<70) [facility] Comment on above: Performed By: #### L [id number] #### Endoscopy Support Specialist: RADHA NOGUEIRA ([phone]) [facility] ([facility]) [address] [place] [address] [place] GRANULAR CASTS (#/LPF) IN URINE 11-25 Abnormal Negative [facility] Comment on above: Performed By: #### L [id number] #### Endoscopy Support Specialist: RADHA NOGUEIRA ([phone]) [facility] ([facility]) [address] [place] [address] HEMOGLOBIN PRESENCE IN URINE 0.1 mg/dL Abnormal Negative [facility] Comment on above: Performed By: #### L [id number] #### Endoscopy Support Specialist: RADHA NOGUEIRA ([phone]) [facility] [address] [place] [address] HYALINE CASTS (#/LPF) IN URINE SEDIMENT BY MICROSCOPY 51-100 Abnormal Negative [facility] Comment on above: Performed By: #### L [id number] #### Endoscopy Support Specialist: RADHA NOGUEIRA ([phone]) [facility] ([facility]) [address] [place] [address] Ketones Ql (U) 10 mg/dL Abnormal Negative [facility] Comment on above: Performed By: #### L [id number] #### Endoscopy Support Specialist: RADHA NOGUEIRA ([phone]) [facility] [address] [place] [address] LEUKOCYTE ESTERASE PRESENCE IN URINE BY TEST STRIP Negative Normal Negative [facility] Comment on above: Performed By: #### L [id number] #### Endoscopy Support Specialist: RADHA NOGUEIRA ([phone]) [facility] ([facility]) [address] [place] [address] [place] MUCUS (#/LPF) IN URINE SEDIMENT Moderate Abnormal Negative [facility] Comment on above: Performed By: #### L [id number] #### Endoscopy Support Specialist: RADHA NOGUEIRA ([phone]) [facility] ([facility]) [address] [place] [address] [place] NITRITE PRESENCE IN URINE Negative Normal Negative [facility] Comment on above: Performed By: #### L [id number] #### Endoscopy Support Specialist: RADHA NOGUEIRA ([phone]) [facility] ([facility]) [address] [place] [address] pH (U) 6.0 [pH] Normal 5.0-8.0 [facility] Comment on above: Performed By: #### L [id number] #### Endoscopy Support Specialist: RADHA NOGUEIRA ([phone]) [facility] ([facility]) [address] [place] [address] Protein (U) [Mass/Vol] 100 mg/dL Abnormal Negative [facility] Comment on above: Performed By: #### L [id number] #### Endoscopy Support Specialist: RADHA NOGUEIRA ([phone]) [facility]) [address] [place] [address] RBC (#/HPF) IN URINE SEDIMENT 0-2 Normal 0-2 [facility] Comment on above: Performed By: #### L [id number] #### Endoscopy Support Specialist: RADHA NOGUEIRA ([phone]) [facility] ([facility]) [address] [place] [address] Specific gravity (U) [Rel density] 1.029 Normal 1.005-1.030 [facility] Comment on above: Performed By: #### L [id number] #### Endoscopy Support Specialist: RADHA NOGUEIRA ([phone]) [facility] ([facility]) [address] [place] [address] SQUAMOUS EPITHELIAL CELLS (#/HPF) IN URINE SEDIMENT 0-2 Normal 3-5 [facility] Comment on above: Performed By: #### L [id number] #### Endoscopy Support Specialist: RADHA NOGUEIRA ([phone]) [facility] ([facility]) [address] [place] [address] UROBILINOGEN (MG/DL) IN URINE Normal Normal Normal (0-1) [facility] Comment on above: Performed By: #### L [id number] #### Endoscopy Support Specialist: RADHA NOGUEIRA ([phone]) [facility] ([facility]) [address] [place] [address] WBC (LEUKOCYTE) (#/HPF) IN URINE SEDIMENT 11-25 Abnormal 0-5 [facility] Comment on above: Performed By: #### L [id number] #### Endoscopy Support Specialist: RADHA NOGUEIRA ([phone]) [facility] ([facility]) [address] [place] [address] WBC CASTS (#/LPF) IN URINE 3-5 Abnormal Negative [facility] Comment on above: Performed By: #### L [id number] #### Endoscopy Support Specialist: RADHA NOGUEIRA ([phone]) [facility] ([facility]) [address] [place] [address] CREATININE, URINE, RANDOMon 08-10-2023 CREATININE, URINE 212.1 mg/dL Normal No Range [facility] Comment on above: Performed By: #### L [id number] #### Endoscopy Support Specialist: RADHA NOGUEIRA ([phone]) [facility]) [address] [place] [address] Consulton 08-10-2023 Consult PAGING: The Acute Pa in Service providers are available exclusively via [employer]. [facility]PS does not utilize pagers. 08/10/2023 Lab Results Component Value Date CREATININE 1.20 (H) 08/10/2023 CREATININE 0.89 06/07/2022 AST 36 (H) 06/07/2022 ALT 25 06/07/2022 Discharge Recommendations: Pending Pain Management Adjuvants: 0700 --> 0700 08/09/2023 Scheduled APAP 2300 mg Lidocaine patches PRN Hydromorphone IV 2.3 mg Methocarbamol 0 mg Oxycodone 25 mg Assessment / Pain Management Plan: Acute Postsurgical Back pain Multimodal pain regimen: BLOCK: n/a Continue Acetaminophen 650 mg po q6h scheduled ATC. Liver enzymes WNL, last checked: 06/07/22 Continue Lidocaine patch x 1. Cut [address] as needed. Continue Hydromorphone 0.25 mg - 0.5 mg IVP q4h prn moderate to severe breakthrough pain. Please utilize oral medications first. Continue Methocarbamol 1000 mg PO TID PRN. Continue Oxycodone 5 - 10 mg po q4h prn moderate to severe breakthrough pain. Continue Naloxone 0.4 mg IVP prn opioid reversal. PRN if respiratory rate is less than 6/min and patient is difficult to arouse then notify physician STAT. Mix 9 mL of sodium chloride 0.9% with 0.4 mg (1 mL) of naloxone (NARCAN) in 10 mL syringe. (Note: dilution is 0.04 mg/mL) Give 0.08 mg (2 mL of special dilution), slow IV push, repeat up to 0.4 mg (10 mL) or until patient is responsive to physical stimulation and respiratory rate is equal to or greater than 6 breaths/min. Continue to observe, if no response within 3 minutes of administration of 0.4 mg (10 mL) total, repeat dose (0.4 mg as administered previously). Spinal stenosis, lumbar region Pt is s/p T11-L3 PSF, L2 lami, JEAN L3-L5 08/08 See #1 Hx ETOH dependence Patient highly anxious, tremors, tachycardia. Concern for withdrawal? Consult to ADM Told by patient's visitor that patient has a problem with addiction. Pt did not elaborate. GENNARO Monitor in setting of opioid use Constipation At risk for opioid induced constipation Patient currently receiving opioids for pain management necessitating a bowel regimen. Recommend initiating scheduled Sennakot-S 8.6/50mg, 1 tablet PO BID. Would also recommend Milk of Magnesia 400mg/5ml, administer 30mL by mouth daily PRN. Opioid Use Acute: Expected to be short term post op pain, see #1 OARRS reviewed for past two years. (No opiates RX filled) Reviewed and educated patient on responsible use of opioids: after surgery, it can be normal to experience pain. If it is mild and you can move about without great difficulty or discomfort, you may not need to take pain medication. It is very important to take your pain medication only as needed. Avoiding excessive or unnecessary medication, will enable you to progress your activity each day to improve your muscle tone and movement, deep breathing, digestion, circulation and your body's ability to heal itself. Will follow. Plan discussed with patient who appears to understand and agrees. Subjective: We have been asked to see this 62 y.o. female for acute post operative pain management s/p T11-L3 PSF, L2 lami, JEAN L3-L5 08/08 Reviewed EKG 08/10/2023 RUTH, no pages. On arrival, pt lying in bed . Pt highly anxious on exam, tearful. Trouble word finding, tremors noted. Pt denies narcotic use prior to hospitalization. Patient states she is upset as she is going through a divorce. Active listening and support provided. States she is afraid to use available PRN medications d/t being labeled as an addict. Pt explains she had difficulty working with PT d/t pain. Tolerating diet, denies n/v. Notified by patient visitor in private that patient has problems with addiction which includes pills and alcohol. States she also has medications in her purse, notified patient's RN. Consult for ADM placed. Patient educated on pain regimen, aware that oxycodone po, hydromorphone IV, methocarbamol are PRN and patient must ask for these medications when needed. Educated patient to utilize oral pain medications as first line and reserve IV pain medications for severe breakthrough pain. Realistic pain control discussed with patient: Not all pain will be taken away, but pain should be tolerable/manageable with current regimen. Pt instructed to have staff page APS if pain becomes uncontrolled when utilizing present regimen. Pt agreeable, denies further questions. PMH reviewed below Pain Location: Back Aggravating Factors: Moving Sedation score: 1: Awake and alert Pain Severity: severe Pain Quality: tender Alleviating Factors: Rest/Pain medications Pain Management: n/a The patient's medical history and physical assessment, medications, allergies, patient's current medical condition, imaging, and labs were reviewed as part of this consultation. [x] Patient's Medications have been reviewed. [x] Patient's OARRS report (PDMP) have been reviewed. Social History Tobacco Use S (more content not included)... Normal [facility] Creatinine (U) [Mass/Vol]on 08-10-2023 CREATININE, URINE 212.1 mg/dL No Range [employer] D-DIMER,QUANTITATIVEon 08-09 D-DIMER, INNOVANCE 0.79 mg/L High <0.50 [facility] Comment on above: Result Comment: DINA Mireles COMMENTS: [employer] D-Dimer values of <0.50 mg/L FEU can be used in combination with a pre-test probability model (e.g. Well's) to exclude pulmonary embolism (PE) disease, as well as an aid in the diagnosis of deep vein thrombosis (DVT). Performed By: #### L [id number], [id number] ####Endoscopy Support Specialist: RADHA NOGUEIRA ([phone])[facility])[address] [place] [address] ETHANOLon 08-10-2023 ETHANOL IN SER/PLAS <0.010 Normal 0.000-0.010 [facility] Comment on above: Result Comment: This sample may have been collected by using an alcohol pad to swab the skin. Ethanol-containing antiseptics before venipuncture may not be causes of spurious or false positive results of alcohol measurement at least when ideal venipunctures can be performed. However, under non-ideal collection conditions, alcohol contamination is a possibility. Results to be correlated clinically. ORDER COMMENTS: NOTE: This result is for medical treatment only. Analysis performed using non-forensic procedures. Performed By: #### L [id number], [id number], [id number] ####Endoscopy Support Specialist: RADHA NOGUEIRA ([phone])[facility])[address] [place] [address] ETHYL GLUCURONIDE SCREEN, UR INEon 08-10-2023 ETHYL GLUCURONIDE, URINE Negative Normal Negative [facility] Comment on above: Result Comment: DINA Mireles COMMENTS: Ethyl Glucuronide has been screened by Immunoassay at a 500 ng/mL threshold. POSITIVE results are not confirmed by a more specific alternative method unless requested. If confirmation is needed, request confirmation under separate order. NOTE: These results are for medical treatment only. Analysis performed using non-forensic procedures. This test has not been cleared by the US Food and Drug Administration (FDA). The FDA has determined that such clearance or approval is not necessary. The performance characteristics have been determined by the clinical laboratories of [facility]. Performed By: #### L [id number], [id number] ####Endoscopy Support Specialist: RADHA NOGUEIRA ([phone])[facility])[address] [place] [address] Ethanol (Bld) [Mass/Vol]on 0 08-10-2023 Ethanol [Mass/Vol] g/dL 0.000 - 0.010 g/dL [facility] Comment on above: This sample may have been collected by using an alcohol pad to swab the skin. Ethanol-containing antiseptics before venipuncture may not be causes of spurious or false positive results of alcohol measurement at least when ideal venipunctures can be performed. However, under non-ideal collection conditions, alcohol contamination is a possibility. Results to be correlated clinically. Interpretation and review of laboratory results Normal [facility] FERRITINon 08-10-2023 Ferritin [Mass/Vol] 47 ng/mL Normal 11-264 [facility] Comment on above: Performed By: #### L AB46, LAB15, [id number] ####Endoscopy Support Specialist: RADHA NOGUEIRA ([phone])[facility])[address] [place] [address] FREE T4on 08-10-2023 Free T4 [Mass/Vol] 1.15 ng/dL Normal 0.78-2.19 [facility] Comment on above: Performed By: #### L [id number], [id number] ####Endoscopy Support Specialist: RADHA NOGUEIRA ([phone])[facility])[address] [place] [address] Ferritin [Mass/Vol]on 2023 Interpretation and review of laboratory results Normal [facility] Fibrin D-dimer FEU (PPP) [Ma ss/Vol]on 08-10-2023 Interpretation and review of laboratory results Abnormal [facility] D-Dimer va lues of <0.50 mg/L FEU can be used in combination with a pre-test probability model (e.g. Well's) to exclude pulmonary embolism (PE) disease, as well as an aid in the diagnosis of deep vein thrombosis (DVT). [facility] IRON AND TIBCon 08-10-2023 IRON BINDING CAPACITY 224 ug/dL Low 261-497 [facility] Comment on above: Performed By: #### L [id number], [id number] ####Endoscopy Support Specialist: RADHA NOGUEIRA ([phone])[facility] ([facility])[address] [place] [address] IRON SATURATION 16 % Normal 15-50 [facility] Comment on above: Performed By: #### L [id number], [id number] ####Endoscopy Support Specialist: RADHA [phone])[facility])[address] [place] [address] IRON, TOTAL 35 ug/dL Low 37-170 [facility] Comment on above: Performed By: #### L [id number], [id number] ####Endoscopy Support Specialist: RADHA NOGUEIRA ([phone])[facility])[address] [place] [address] Iron and Iron binding capaci ty panelon 08-10-2023 Interpretation and review of laboratory results Abnormal [facility] Iron [Mass/Vol] 35 ug/dL Low 37 - 170 ug/dL [facility] Iron binding capacity [Mass/Vol] 224 ug/dL Low 261 - 497 ug/dL [facility] Iron saturation [Mass fraction] 16 % 15 - 50 % [facility] Laboratory - Chemistry and C hemistry - challengeon 08-10-2023 Sodium (24H U) [Mass/Vol] 22 mmol/L Low 30 - 90 mmol/L [facility] Urea nitrogen (U) [Mass/Vol] 283 mg/dL No Range [facility] Ferritin [Mass/Vol] 47 ng/mL 11 - 264 ng/mL [facility] - Coagulationon 0 08-10-2023 Fibrin D-dimer FEU (PPP) [Mass/Vol] 0.79 mg/L High NINF - 0.50 mg/L [facility] PT Coag (Bld) [Time] 11.0 s 9.0 - 12.0 s [facility] - Drug toxicology on 08-10-2023 Amphetamines Ql (U) Positive Negative [facility] Benzodiazepines Ql (U) Positive Negative [facility] Cocaine Ql (U) Negative Negative [facility] Ethanol [Mass/Vol] Negative Negative [facility] Methadone Ql (U) Negative Negative [facility] Opiates Ql (U) Positive Negative [facility] MEDICATION ASSISTED TREATMEN T PANELon 08-10-2023 Amphetamines Ql (U) Positive Normal Negative [facility] Comment on above: Performed By: #### L [id number], [id number] ####Endoscopy Support Specialist: RADHA NOGUEIRA ([phone])[facility] ([facility])[address] [place] [address] BARBITURATES Negative Normal Negative [facility] Comment on above: Performed By: #### L [id number], [id number] ####Endoscopy Support Specialist: RADHA NOGUEIRA ([phone])[facility])[address] [place] [address] Benzodiazepines Ql (U) Positive Normal Negative [facility] Comment on above: Performed By: #### L [id number], [id number] ####Endoscopy Support Specialist: RADHA NOGUEIRA ([phone])[facility] ([facility])[address] [place] [address] BUPRENORPHINE SCREEN Negative Normal Negative [facility] Comment on above: Performed By: #### L [id number], [id number] ####Endoscopy Support Specialist: RADHA NOGUEIRA ([phone])[facility])[address] [place] [address] Cocaine Ql (U) Negative Normal Negative [facility] Comment on above: Performed By: #### L [id number], [id number] ####Endoscopy Support Specialist: RADHA NOGUEIRA ([phone])[facility] ([facility])[address] [place] [address] ETHANOL-ETOHO Negative Normal Negative [facility] Comment on above: Result Comment: DINA Mireles COMMENTS: The expected value for the drugs listed above is Negative. The following drugs or drug groups have been screened for by Immunoassay at the following thresholds: Amphetamine class(1000ng/mL) Barbituates(200ng/mL) Benzodiazepines(200ng/mL) Cocaine(300ng/mL) Ethanol (50 ng/mL) Methadone(300ng/mL) Opiates(300ng/mL) Oxycodone(100ng/mL) PCP(25ng/mL) Buprenorphine(5ng/mL) THC(50ng/mL) Fentanyl(1ng/mL) Positive results are NOT confirmed by a more specific alternative method unless requested. If confirmation is needed, request confirmation under separate order. NOTE: These results are for medical treatment only. Analysis performed using non-forensic procedures. Performed By: #### L [id number], [id number] ####Endoscopy Support Specialist: RADHA NOGUEIRA ([phone])[facility])[address] [place] [address] FENTANYL Negative Normal Negative [facility] Comment on above: Performed By: #### L [id number], [id number] ####Endoscopy Support Specialist: RADHA NOGUEIRA ([phone])[facility] ([facility])[address] [place] [address] Methadone Ql (U) Negative Normal Negative [facility] Comment on above: Performed By: #### L [id number], [id number] ####Endoscopy Support Specialist: RADHA NOGUEIRA ([phone])[facility])[address] [place] [address] Opiates Ql (U) Positive Normal Negative [facility] Comment on above: Performed By: #### L [id number], [id number] ####Endoscopy Support Specialist: RADHA NOGUEIRA ([phone])[facility] ([facility])[address] [place] [address] OXYCODONE/OXYMORPHONE Negative Normal Negative [facility] Comment on above: Performed By: #### L [id number], [id number] ####Endoscopy Support Specialist: RADHA NOGUEIRA ([phone])[facility] ([facility])[address] [place] [address] PCP Negative Normal Negative [facility] Comment on above: Performed By: #### L [id number], [id number] ####Endoscopy Support Specialist: RADHA NOGUEIRA ([phone])[facility])[address] [place] [address] THC-MTTHC Positive Normal Negative [facility] Comment on above: Performed By: #### L [id number], [id number] ####Endoscopy Support Specialist: RADHA NOGUEIRA ([phone])[facility])[address] [place] [address] No Panel InformationOrdered By: Cr Arnold on 08-10-2023 ETHYL GLUCURONIDE, URINE Negative Negative [facility] Ethyl Glucuronide weber s been screened by Immunoassay at a 500 ng/mL threshold. POSITIVE results are not confirmed by a more specific alternative method unless requested. If confirmation is needed, request confirmation under separate order. NOTE: These results are for medical treatment only. Analysis performed using non-forensic procedures. This test has not been cleared by the US Food and Drug Administration (FDA). The FDA has determined that such clearance or approval is not necessary. The performance characteristics have been determined by the clinical laboratories of [facility]. [facility] No Panel Informationon 08-09 BARBITURATES Negative Negative [facility] BUPRENORPHINE SCREEN Negative Negative [facility] FENTANYL Negative Negative [facility] OXYCODONE/OXYMORPHONE Negative Negative [facility] PCP Negative Negative [facility] THC Positive Negative [facility] The expected value f or the drugs listed above is Negative. The following drugs or drug groups have been screened for by Immunoassay at the following thresholds: Amphetamine class(1000ng/mL) Barbituates(200ng/mL) Benzodiazepines(200ng/mL ) Cocaine(300ng/mL) Ethanol (50 ng/mL) Methadone(300ng/mL) Opiates(300ng/mL) Oxycodone(100ng/mL) PCP(25ng/mL) Buprenorphine(5ng/mL) THC(50ng/mL) Fentanyl(1ng/mL) Positive results are NOT confirmed by a more specific alternative method unless requested. If confirmation is needed, request confirmation under separate order. NOTE: These results are for medical treatment only. Analysis performed using non-forensic procedures. [facility] Interpretation and review of laboratory results Abnormal [facility] PROTHROMBIN TIMEon 4 INR Coag (PPP) [Relative time] 1.0 {INR} Normal 0.9-1.1 [facility] Comment on above: Order Comment: If pa tient on coumadin within 4 days prior. Result Comment: Darius mmended Anticoagulant Therapy: SEE BELOW ----- INR of 2.0 - 3.0 : - Prophylaxis of Venous Thrombosis (high-risk surgery) - Treatment of Venous Thrombosis - Treatment of Pulmonary Embolism (Includes tissue heart valves, Acute Myocardial Infarction to prevent systemic embolism, Valvular Heart Disease, and Atrial Fibrillation) ----- INR of 2.5 - 3.5 : - Mechanical Prosthetic Valves (high risk) - If oral anticoagulant therapy is used to prevent Myocardial Infarction Performed By: #### L [id number], [id number] ####Endoscopy Support Specialist: RADHA NOGUEIRA ([phone])[facility])[address] [place] [address] PT Coag (PPP) [Time] 11.0 s Normal 9.0-12.0 [facility] Comment on above: Order Comment: If pa tient on coumadin within 4 days prior. Performed By: #### L [id number], [id number] ####Endoscopy Support Specialist: RADHA NOGUEIRA ([phone])[facility] ([facility])[address] [place] [address] PT Coag (Bld) [Time]on 08-09 INR Coag (PPP) [Relative time] 1.0 {INR} 0.9 - 1.1 [facility] Comment on above: Recommended Anticoag ulant Therapy: SEE BELOW ----- INR of 2.0 - 3.0 : - Prophylaxis of Venous Thrombosis (high-risk surgery) - Treatment of Venous Thrombosis - Treatment of Pulmonary Embolism (Includes tissue heart valves, Acute Myocardial Infarction to prevent systemic embolism, Valvular Heart Disease, and Atrial Fibrillation) ----- INR of 2.5 - 3.5 : - Mechanical Prosthetic Valves (high risk) - If oral anticoagulant therapy is used to prevent Myocardial Infarction Interpretation and review of laboratory results Normal [facility] SODIUM, URINE, RANDOMon Sodium (U) [Moles/Vol] 22 mmol/L Low 30-90 [facility] Comment on above: Performed By: #### L [id number] #### Endoscopy Support Specialist: RADHA NGOUEIRA ([phone]) [facility] ([facility]) [address] [place] [address] UREA NITROGEN, URINEon 08-09 UREA NITROGEN, URINE 283 mg/dL Normal No Range [facility] Comment on above: Performed By: #### L [id number] #### Endoscopy Support Specialist: RADHA NOGUEIRA ([phone]) [facility]) [address] [place] [address] Urinalysis complete panel (U )Ordered By: Lori Alves on 08-10-2023 Bacteria LM.HPF (Urine sed) [#/Area] Few Abnormal Negative /HPF [facility] Bilirubin Ql (U) Negative Negative mg/dL [facility] Clarity (U) Slightly Cloudy Abnormal Clear [facility] Color (U) Dark Yellow Abnormal Lt. Yellow [facility] Epithelial cells.squamous LM.HPF (Urine sed) [#/Area] 0-2 [facility] Glucose Ql (U) Normal Normal (<70) mg/dL [facility] Granular casts LM.HPF (Urine sed) [#/Area] 11-25 Abnormal Negative /LPF [facility] Hemoglobin Ql (U) 0.1 mg/dL Abnormal Negative [facility] Hyaline casts Auto (Urine sed) [#/Area] 51-100 Abnormal Negative /LPF [facility] Interpretation and review of laboratory results Abnormal [facility] Ketones (U) [Mass/Vol] 10 mg/dL Abnormal Negative [facility] Leukocyte esterase Test strip Ql (U) Negative Negative Philipp/uL [facility] Mucus LM.HPF (Urine sed) [#/Area] Moderate Abnormal Negative /LPF [facility] Nitrite Ql (U) Negative Negative [facility] pH (U) 6.0 [pH] 5.0 - 8.0 pH [facility] Protein (U) [Mass/Vol] 100 mg/dL Abnormal Negative [facility] RBC LM.HPF (Urine sed) [#/Area] 0-2 [facility] Specific gravity (U) [Rel density] 1.029 1.005 - 1.030 [facility] Urobilinogen (U) [Mass/Vol] Normal Normal (0-1) mg/dL [facility] WBC casts LM.HPF (Urine sed) [#/Area] 3-5 Abnormal Negative /LPF [facility] WBC LM.HPF (Urine sed) [#/Area] 11-25 Abnormal [facility] Consulton 08-09-2023 Consult Hospital Medicine Consult Patient - Alfie Hogan, Age - 62 y.o. - 1960 Room Number - @ROOMBEDREFRESH@ Consulting - Brandon Bean MD Primary Care Physician - Bernardino Moran MD Date of Admission - 08/09/2023 7:14 AM Hospital Day - 0 Reason for Consult: Medical Management HISTORY OF PRESENT ILLNESS: Alfie is a 62 y.o. female pmhx hypertension, chronic respiratory failure due to COPD, pulmonary hypertension on 3 L of oxygen at baseline, CHF, obstructive sleep apnea, hyperlipidemia, anxiety/depression admitted for elective lumbar laminectomy with hardware removal, fusion thoracic 11-L3 with allograft Internal medicine service consulted for med management Patient seen resting comfortably in bed, pain well-controlled. Past Medical History: Past Medical History: Diagnosis Date 2018 novel coronavirus disease (COVID-19) Alcohol dependence with uncomplicated withdrawal (HCC) 07/07/2020 Allergic Anxiety Arthritis Asthma Bronchiectasis (HCC) COPD exacerbation (HCC) 10/24/2019 Depression Diaphragm paralysis Diastolic heart failure (HCC) Dizziness 11/09/2020 Dvt femoral (deep venous thrombosis) ([facility]) right...was on blood thinners after broken ankle have been off thinners for a few years Fall 11/21/2020 GERD (gastroesophageal reflux disease) Hypertension Kidney disease Kidney failure 01/09/2019 Kidney stone Obesity Oxygen decrease Currently on Home oxygen, uses with exertion Pulmonary hypertension (HCC) Pulmonary hypertension (HCC) Weakness 11/21/2020 Past Surgical History: Past Surgical History: Procedure Laterality Date ABDOMINAL SURGERY ADENOIDECTOMY ANKLE SURGERY Right 07/19/2021 APPENDECTOMY 2003 BACK SURGERY CHOLECYSTECTOMY 2004 EXTREMITY SURGERY Left 07/2021 elbow FRACTURE SURGERY HERNIA REPAIR 1972 JOINT REPLACEMENT Bilateral hips LUMBAR DISC SURGERY LUMBAR DISC SURGERY N/A 08/09/2023 REMOVAL HARDWARE LUMBAR /4/5, LAMINECTOMY LUMBAR 2, FUSION THORACIC 11-LUMBAR 3, INSTRUMENTATION THORACIC 11-LUMBAR 5, ALLOGRAFT, BONE MORPHOGENETIC PROTEIN TENDON RELEASE Right Right arm TONSILLECTOMY TONSILLECTOMY (HISTORICAL) 1965 TOTAL ABDOMINAL HYSTERECTOMY 2001 Medications: acetaminophen, 650 mg, Oral, q6h carvedilol, 3.125 mg, Oral, qPM ceFAZolin, 2,000 mg, IntraVENous, q8h dexAMETHasone, 6 mg, IntraVENous, q6h mometasone-formoterol, 2 puff, Inhalation, BID [START ON 08/10/2023] pantoprazole, 40 mg, Oral, q AM rosuvastatin, 40 mg, Oral, Nightly sodium chloride 0.9%, 10 mL, IntraVENous, 2 times per day trospium, 20 mg, Oral, BID lactated Ringer's, 50 mL/hr, Last Rate: 50 mL/hr (08/09/23 2888) PRN medications: albuterol, HYDROmorphone OR HYDROmorphone, naloxone, ondansetron ODT OR ondansetron, oxyCODONE OR oxyCODONE, polyethylene glycol (PEG) 3350, sodium chloride, sodium chloride 0.9% Allergies: Bee pollen, Cat hair extract, Dust mite extract, Penicillins, Pollen extract, and Seasonal ic [cholestatin] Social History: Social History Socioeconomic History Marital status: Spouse name: Not on file Number of children: Not on file Years of education: Not on file Highest education level: Not on file Occupational History Not on file Tobacco Use Smoking status: Former Packs/day: 0.50 Years: 15.00 Additional pack years: 0.00 Total pack years: 7.50 Types: Cigarettes Quit date: 06/04/2005 Years since quittin.1 Smokeless tobacco: Never Vaping Use Vaping Use: Never used Substance and Sexual Activity Alcohol use: Not Currently Drug use: No Sexual activity: Yes Partners: Male control/protection: Female Sterilization Other Topics Concern Not on file Social History Narrative Not on file Social Determinants of Health Financial Resource Strain: Low Risk (06/02/2022) Overall Financial Resource Strain (CARDIA) Difficulty of Paying Living Expenses: Not hard at all Food Insecurity: No Food Insecurity (06/02/2022) Hunger Vital Sign Worried About Running Out of Food in the Last Year: Never true Ran Out of Food in the Last Year: Never true Transportation Needs: No Transportation Needs (06/02/2022) PRAPARE - Transportation Lack of Transportation (Medical): No Lack of Transportation (Non-Medical): No Physical Activity: Not on file Stress: Not on file Social Connections: Not on file Intimate Partner Violence: Not At Risk (08/09/2023) Humiliation, Afraid, Rape, and Kick questionnaire Fear of Current or Ex-Partner: No Emotionally Abused: No Physically Abused: No Sexually Abused: No Housing Stability: Not on file Family History: @FAMHXNH@ REVIEW OF SYSTEMS: 10 point ROS obtained, as per HPI, otherwise NEG Physical Exam: Vitals: BP 91/69 Pulse 95 Temp 36.5 ?C (97.7 ?F) (Temporal) Resp 18 SpO2 100% BMI Classification: Morbidly Obese (>40.0) Pulse Ox: SpO2 Av % Min: 96 % (more content not included)... Normal [facility] No Panel Informationon 08-08 There is no interpretation needed for this exam. IMAGING Op Noteon 08-09-2023 Op Note OPERATIVE NOTE Patient Name: Alfie Hogan : 1960 DATE OF PROCEDURE: 08/09/2023 SURGEON: BRANDON BEAN MD PREOPERATIVE DIAGNOSES: Status postlaminectomy and fusion, stenosis, scoliosis POSTOPERATIVE DIAGNOSES: Same PROCEDURE: Removal hardware L3-4-5 inspection fusion mass L3-4-5 requiring no repeat fusion laminectomy L2 fusion T11-T12 L1-L2-L3 instrumentation T11-L4 allograft bone nonstructural use of IntraOp O-arm Stealth navigation for insertion of hardware morbid obesity. This person has a BMI greater than 40 this doubling to tripled in the length of the time of hardware potentially increasing risk potentially decreasing outcomes INDICATION FOR PROCEDURE: Status post surgery junctional level breakdown and stenosis scoliosis DESCRIPTION OF PROCEDURE: Patient was taken the operating room timeout was done for patient procedure. It should be noted this was a revision surgery so we had to dissect through the old incision we had to dissect through between skin scar fat and scar there was her previous fusion mass which is very robust we had to dissect that out we did take part of that Part of the fusion down remove the hardware thus doubling with the time of surgery potentially increasing risk potentially decreasing outcomes and the use of the Stealth O-arm hide to be used for insertion of hardware due to this. Should be noted this patient has a BMI greater than 40 at double the length to tripled the length of time with surgery potentially increasing risk potentially decreasing outcomes reduce after people to flip prepped and draped in head pad extra body parts made using Ochoa table it is used extra long instruments as well for this Skin incision was made through the old incision recently that incision cephalad.. We dissected down to the copious adipose tissue to the hardware we dissected the hardware out of L3 L4-5 inspected the fusion mass there was noted to be very solid. We did take some of the fusion down superiorly off the screw heads. We removed the hardware en bloc. We further inspected the fusion mass noted to be very solid. We dissected out to L1 T12 and T11 including the bilateral transverse processes at L1 and L2 and will and the fusion mass at L3. Laminectomy was carried out at L2 with bur rongeur and Kerrisons bilateral foraminotomies L2-3 carried out Kerrisons. This decompressing the bilateral exiting L2 nerve roots which were free. At this point in time a spinous process clamp was put on the spinous process of T12 and IntraOp CAT scan was taken. Once this was done we identified the appropriate levels. The IntraOp CAT scan was coordinated with the IntraOp Stealth system. Instruments were calibrated with the Stealth system. This point in time with the O-arm Stealth system bilateral pedicle screws were put in at T11 T12-L1 and L2 with the use of a bur followed by the Stealth instruments to make the pedicle hole, tapped the pedicle hole, inserted appropriate size screw. We reinserted screws at L3 and L4. All screws were appropriate. All screws tested negative an EMG. Rods were cut contoured and assembled between the screws and final tightening carried out we decorticated the lamina of T11 T12-L1 the transverse processes of L1-L2 and the superior part of the fusion mass at L3 and L4. We packed this area with his copious amount of allograft bone nonstructural. Previous to this wound irrigated drain was placed sewn in vancomycin powder put in the wound this accomplished the fusion of T11-T12 L1-L2-L3 instrumentation T11-T12 L1-L2-L3 and L4. Muscle and deep fascia was closed with 1 Vicryl copious amount of 0 Vicryl sutures were used in the adipose tissue. 2 oh subcu. Dermabond and soha for skin. End of dictation [facility] ECG 12-LEADon 08-03-2023 ECG 12-LEAD IMPRESSION: Sinus rhythm Right bundle branch block LOW VOLTAGE IN PRECORDIAL LEADS Electronically Signed On 08-03-2023 08:47:03 EST by Eric Subramanian [facility] [id number] 08-02-2023 [id number] Shayy GOMEZ made aware of vital signs and recent fall Normal [facility] [id number] [facility]. Patient states she forgot her oxygen tank in the car. Offered patient oxygen but states as long as she was sitting she did not think she would need it. Pulse ox was 94% on Room AIR. Informed patient that at anytime if she needed oxygen we could accommodate her. Patient verbalized understanding and deferred the oxygen during her appt. Patient was asked during her appt if she needed the supplemental oxygen and she repeatedly said no. Breathing was unlabored during her appt and she was able to speak in complete sentences without becoming short of breath Normal [facility] BLOOD TYPE AND SCREEN GELon 08-02-2023 ABO GROUPING A Normal [facility] Comment on above: Performed By: #### L [id number] ####Endoscopy Support Specialist: RADHA NOGUEIRA ([phone])[facility] ([facility])[address] [place] [address] RH TYPE IN BLOOD Negative Normal [facility] Comment on above: Performed By: #### L [id number] ####Endoscopy Support Specialist: RADHA NOGUEIRA ([phone])[facility] ([facility])[address] [place] [address] COMPLETE URINALYSISon 2023 BACTERIA (#/HPF) IN URINE Negative Normal Negative [facility] Comment on above: Performed By: #### L [id number] ####Endoscopy Support Specialist: RADHA NOGUEIRA ([phone])[address] BILIRUBIN, TOTAL PRESENCE IN URINE Negative Normal Negative [facility] Comment on above: Performed By: #### L [id number] ####Endoscopy Support Specialist: RADHA NOGUEIRA ([phone])[facility])[address] [place] [address] Clarity (U) Clear Normal Clear [facility] Comment on above: Performed By: #### L [id number] ####Endoscopy Support Specialist: RADHA NOGUEIRA ([phone])[address] Color (U) Light Yellow Normal Lt. Yellow [facility] Comment on above: Performed By: #### L [id number] ####Endoscopy Support Specialist: RADHA [phone])[facility] ([facility])[address] [place] [address] GLUCOSE (MG/DL) IN URINE Normal Normal Normal (<70) [facility] Comment on above: Performed By: #### L [id number] ####Endoscopy Support Specialist: RADHA NOGUEIRA ([phone])[facility])[address] [place] [address] HEMOGLOBIN PRESENCE IN URINE Negative Normal Negative [facility] Comment on above: Performed By: #### L [id number] ####Endoscopy Support Specialist: RADHA NOGUEIRA ([phone])[facility])[address] [place] [address] Ketones Ql (U) Negative Normal Negative [facility] Comment on above: Performed By: #### L [id number] ####Endoscopy Support Specialist: RADHA NOGUEIRA ([phone])[facility] ([facility])[address] [place] [address] LEUKOCYTE ESTERASE PRESENCE IN URINE BY TEST STRIP 25 Philipp/uL Abnormal Negative [facility] Comment on above: Performed By: #### L [id number] ####Endoscopy Support Specialist: RADHA NOGUEIRA ([phone])[facility] ([facility])[address] [place] [address] NITRITE PRESENCE IN URINE Negative Normal Negative [facility] Comment on above: Performed By: #### L [id number] ####Endoscopy Support Specialist: RADHA NOGUEIRA ([phone])[facility] ([facility])[address] [place] [address] pH (U) 6.5 [pH] Normal 5.0-8.0 [facility] Comment on above: Performed By: #### L [id number] ####Endoscopy Support Specialist: RADHA NOGUEIRA ([phone])[facility] ([facility])[address] [place] [address] Protein (U) [Mass/Vol] Negative Normal Negative [facility] Comment on above: Performed By: #### L [id number] ####Endoscopy Support Specialist: RADHA NOGUEIRA ([phone])[facility])[address] [place] [address] [place] RBC (#/HPF) IN URINE SEDIMENT Negative Normal 0-2 [facility] Comment on above: Performed By: #### L [id number] ####Endoscopy Support Specialist: RADHA NOGUEIRA ([phone])[facility] ([facility])[address] [place] [address] Specific gravity (U) [Rel density] 1.009 Normal 1.005-1.030 [facility] Comment on above: Performed By: #### L [id number] ####Endoscopy Support Specialist: RADHA NOGUEIRA ([phone])[facility] ([facility])[address] [place] [address] SQUAMOUS EPITHELIAL CELLS (#/HPF) IN URINE SEDIMENT 0-2 Normal 3-5 [facility] Comment on above: Performed By: #### L [id number] ####Endoscopy Support Specialist: RADHA NOGUEIRA ([phone])[facility] ([facility])[address] [place] [address] UROBILINOGEN (MG/DL) IN URINE Normal Normal Normal (0-1) [facility] Comment on above: Performed By: #### L [id number] ####Endoscopy Support Specialist: RADHA NOGUEIRA ([phone])[facility] ([facility])[address] [place] [address] WBC (LEUKOCYTE) (#/HPF) IN URINE SEDIMENT 0-2 Normal 0-5 [facility] Comment on above: Performed By: #### L [id number] ####Endoscopy Support Specialist: RADHA NOGUEIRA ([phone])[facility] ([facility])[address] [place] [address] HEMOGLOBIN A1Con 08-02-2023 Glucose [Mass/Vol] 88 mg/dL Normal [facility] Comment on above: Performed By: #### L AB90 ####Endoscopy Support Specialist: RADHA NOGUEIRA ([phone])[facility] ([facility])[address] [place] [address] HbA1c (Bld) [Mass fraction] 4.7 % Normal <5.7 [facility] Comment on above: Result Comment: Norm al less than 5.7% Prediabetes 5.7% to 6.4% Diabetes 6.5% or higher --HgbA1C levels may not be accurate in patients who have renal disease, received recent blood transfusions, are anemic, or who have dyshemoglobinemia. Performed By: #### L AB90 ####Endoscopy Support Specialist: RADHA NOGUEIRA ([phone])[address] MRSA BY PCRon 08-02-2023 MRSA BY PCR STAPHYLOCOCCUS AUREU S Reference Not Detected Not Detected MECA GENE Reference Not Detected Not Detected ORDER COMMENTS: No Staphylococcus aureus detected. Negative nasal MRSA PCR has a high negative predictive value for MRSA pneumonia. Consider stopping Vancomycin if no other clinical indication. Contact Antimicrobial Stewardship for further recommendations. Staphylococcus aureus nasal screen by real-time PCR. This test was modified and its performance characteristics determined by [facility]. The U. S. Food and Drug Administration has not approved or cleared this test; however, FDA clearance or approval is not currently required for clinical use. The results are not intended to be used as the sole means for clinical diagnosis or patient management decisions. Normal [facility] Comment on above: Performed By: #### L [id number] #### Endoscopy Support Specialist: RADHA NOGUEIRA ([phone]) [address] PREALBUMINon 08-02-2023 Prealbumin [Mass/Vol] 20.0 mg/dL Normal 17.6-36.0 [facility] Comment on above: Performed By: #### L [id number] #### Endoscopy Support Specialist: RADHA NOGUEIRA ([phone]) [facility]) [address] [place] [address] PREPROCINSon 08-02-2023 PREPROCINS Medication List Accurate as of August 02, 2023 11:16 AM. Always use your most recent med list. albuterol 108 (90 Base) MCG/ACT inhaler Commonly known as: Ventolin HFA Inhale 2 puffs every 4 hours as needed for wheezing or shortness of breath. Notes to patient: Use if needed carvedilol 3.125 MG tablet Commonly known as: Coreg take 1 tablet by mouth every morning and 1 tablet by mouth every evening with meals Notes to patient: Take day of surgery Dulera 100-5 MCG/ACT inhaler Generic drug: mometasone-formoterol INHALE 2 PUFFS BY MOUTH EVERY MORNING AND INHALE 2 PUFFS EVERY EVENING Notes to patient: Take day of surgery FLUoxetine 40 MG capsule Commonly known as: PROzac take 1 capsule by mouth once daily Notes to patient: Patient states no longer taking hydrOXYzine pamoate 50 MG capsule Commonly known as: Vistaril take 1 capsule by mouth every 8 hours if needed Notes to patient: Patient takes no longer taking NON FORMULARY oxygen gas Commonly known as: O2 pantoprazole 40 MG EC tablet Commonly known as: ProtoNix Take 1 tablet (40 mg) by mouth every morning. Notes to patient: Take day of surgery potassium chloride CR 20 MEQ ER tablet Commonly known as: Klor-Con M20 TAKE 1 TABLET BY MOUTH TWICE A DAY *DO NOT CRUSH OR CHEW Notes to patient: Take day of surgery rivastigmine 1.5 MG capsule Commonly known as: Exelon TAKE 1 CAPSULE BY MOUTH TWICE A DAY Notes to patient: Patient states no longer taking rosuvastatin 40 MG tablet Commonly known as: Crestor Take 1 tablet (40 mg) by mouth Nightly. Notes to patient: Take night before surgery traZODone 150 MG tablet Commonly known as: Desyrel take 1 tablet by mouth nightly Notes to patient: Take night before surgery if needed trospium 20 MG tablet Commonly known as: Sanctura TAKE 1 TABLET BY MOUTH TWICE A DAY Notes to patient: Take day of surgery Additional Instructions: AUT[employer]IVE [employer] ADVISOR AND PARKING IN THE MAIN DECK ARE FREE DAY OF SURGERY. PARKING IN THE DECK-- AFTER PARKING TAKE THE ELEVATOR TO LEVEL ONE AND TAKE THE BRIDGE TO THE HOSPITAL. GO TO THE RIGHT AND GO AROUND THE CORNER TO THE SAME DAY SURGERY DESK AND CHECK IN THERE. IF GOING IN THE MAIN ENTRANCE-- TURN LEFT AND GO DOWN THE PEREZ TO THE H ELEVATORS AND TAKE THEM TO ONE, LEFT OFF THE ELEVATOR AND GO AROUND TO THE SAME DAY DESK AND CHECK IN. You may take your prescription pain medication. You may take Tylenol for pain. NO Motrin, ibuprofen or Advil for 24 hours prior to surgery or longer if instructed by your surgeon. NO Aleve or Naprosyn for 5 days prior to surgery or longer if instructed by your surgeon. IF YOU TAKE BLOOD THINNERS OR ASPIRIN: DO NOT take aspirin or aspirin containing products for 5 days before surgery, or longer if instructed by your surgeon. Follow any instructions given to you by Dr. Geneva Mcdaniel with shower kit provided to you before coming to the hospital. No makeup, lotion, powder, deodorant or body spays. No hair products. Remove all jewelry and leave it at home. Wear loose comfortable clothing to go home in. You may brush your teeth morning of surgery. Do not wear contacts day of surgery. No marijuana (THC), smoking or alcohol for 24 hours prior to surgery. Please arrange for a responsible adult to drive you home after your surgery and that there is a responsible adult with you for 24 hours post discharge. If you have specific questions, please call your surgeon. You will receive a call the day before your surgery to verify your arrival time and date. You will be asked to arrive at least two hours prior to your scheduled surgery time. Please bring your [facility] Surgical folder and medication list with you day of surgery. We encourage you to write down any questions you may have for the surgeon, anesthesiologist, or other members of the surgical team and bring it with you the day of surgery. Please bring photo ID and insurance information. Please bring your CPAP/BIPAP device,mask, and equipment with you on the day of surgery. Do not bring water for your machine, it will be provided. Normal [facility] PROTHROMBIN TIMEon 4 INR Coag (PPP) [Relative time] 0.9 {INR} Normal 0.9-1.1 [facility] Comment on above: Result Comment: Darius mmended Anticoagulant Therapy: SEE BELOW ----- INR of 2.0 - 3.0 : - Prophylaxis of Venous Thrombosis (high-risk surgery) - Treatment of Venous Thrombosis - Treatment of Pulmonary Embolism (Includes tissue heart valves, Acute Myocardial Infarction to prevent systemic embolism, Valvular Heart Disease, and Atrial Fibrillation) ----- INR of 2.5 - 3.5 : - Mechanical Prosthetic Valves (high risk) - If oral anticoagulant therapy is used to prevent Myocardial Infarction Performed By: #### L [id number] ####Endoscopy Support Specialist: RADHA NOGUEIRA ([phone])[facility] ([address] PT Coag (PPP) [Time] 10.0 s Normal 9.0-12.0 [facility] Comment on above: Performed By: #### L [id number] ####Endoscopy Support Specialist: RADHA NOGUEIRA ([phone])[facility] ([facility])[address] [place] [address] Absolute lymphocyte countOrd ered By: Eliazar Chavarria on 07-12-2023 Lymphocytes Auto (Unsp spec) [#/Vol] 1.04 10*3/uL 0.83-4.51 [facility] Automated lymphocyte count a s percentage of total leukocytesOrdered By: Eliazar Chavarria on 07-12-2023 Lymphocytes/100 WBC Auto (Unsp spec) 22.3 % 19-41 [facility] Basophil percentageOrdered B y: Eliazar Chavarria on 07-12-2023 Basophil percentage 10-25 SEEN /hpf 0-5 [facility] Basophils/100 WBC (Bld) 0.6 % 0-1 [facility] Bilirubin [Mass/Vol] 1.30 mg/dL 0.20-1.00 [facility] Comment on above: For patients on eltr ombopag therapy, use of [place] TBIL is not recommended. Chloride [Moles/Vol] 102 mmol/L 98-107 [facility] Eosinophils/100 WBC (Bld) 0.6 % 0-5 [facility] Glucose [Mass/Vol] 95 mg/dL 74-106 [facility] Hemoglobin (Bld) [Mass/Vol] 13.1 g/dL 12.0-15.0 [facility] Monocytes/100 WBC (Bld) 6.9 % 0-10 [facility] Neutrophils (Bld) [#/Vol] 3.2 10*3/uL 2.0-7.7 [facility] Neutrophils/100 WBC (Bld) 69.4 % 47-70 [facility] Potassium [Moles/Vol] 3.3 mmol/L 3.5-5.1 [facility] Protein [Mass/Vol] 6.8 g/dL 6.4-8.2 [facility] Sodium [Moles/Vol] 134 mmol/L 136-145 [facility] WBC (Bld) [#/Vol] 4.7 10*3/uL 4.4-11.0 [facility] Bilirubin Test strip Ql (U)O rdered By: Eliazar Chavarria on 07-12-2023 Bilirubin Ql (U) Negative Negative [facility] Determination of erythrocyte mean corpuscular volume (MCV)Ordered By: Eliazar Chavarria on 07-12-2023 MCV (RBC) [Entitic vol] 86.3 fL 81-99 [facility] Erythrocyte distribution wid th ratioOrdered By: Eliazar Chavarria on 07-12-2023 Erythrocyte distribution width (RBC) [Ratio] 14.3 % 11.6-14.6 [facility] Erythrocyte distribution wid th standard deviationOrdered By: Eliazar Chavarria on 07-12-2023 Erythrocyte distribution width (RBC) [Entitic vol] 45.0 fL 35.1-43.9 [facility] Hematocrit Auto (Bld) [Volum e fraction]Ordered By: Eliazar Chavarria on 07-12-2023 Hematocrit (Bld) [Volume fraction] 42.2 % 37-47 [facility] Immature granulocytes/100 WB C Auto (Bld)Ordered By: Eliazar Chavarria on 07-12-2023 Immature granulocytes/100 WBC (Bld) 0.200 % 0.0-0.9 [facility] Comment on above: IG% - Immature Granu locytes (promyelocytes, myelocytes and metamyelocytes) > 1% indicates that a LEFT SHIFT is Present. Ketones Test strip Ql (U)Ord ered By: Eliazar Chavarria on 07-12-2023 Ketones Ql (U) 5 mg/dl Negative [facility] Laboratory - Chemistry and C hemistry - challengeOrdered By: Eliazar Chavarria on 07-12-2023 Albumin/Globulin [Mass ratio] 1.3 {ratio} 0.9-2.4 [facility] ALP [Catalytic activity/Vol] 158 U/L 45-117 [facility] ALT [Catalytic activity/Vol] 24 U/L 13-56 [facility] CO2 [Moles/Vol] 26.0 mmol/L 21.0-32.0 [facility] Globulin (S) [Mass/Vol] 3.0 g/dL 2.2-4.2 [facility] Urea nitrogen/Creatinine [Mass ratio] 8.7 mg/mg 10-20 [facility] - Hematology and Cell countsOrdered By: Eliazar Chavarria on 07-12-2023 MCH (RBC) [Entitic mass] 26.8 pg 27.0-32.0 [facility] MCHC (RBC) [Mass/Vol] 31.0 g/dL 32-36 [facility] Nucleated RBC/100 WBC (Bld) [Ratio] 0 % 0-5 [facility] Platelet mean volume (Bld) [Entitic vol] 10.7 fL 6.2-12.0 [facility] Platelets (Bld) [#/Vol] 167 10*3/uL 150-450 [facility] Mucus LM Ql (Urine sed)Order ed By: Eliazar Chavarria on 07-12-2023 Mucus Ql (Urine sed) 0 SEEN /hpf [facility] Nitrite Test strip Ql (U)Ord ered By: Eliazar Chavarria on 07-12-2023 Nitrite Ql (U) Negative Negative [facility] No Panel InformationOrdered By: Eliazar Chavarria on 07-12-2023 Urine RBC 0-5 SEEN /hpf 0-5 [facility] Estimated Creatinine Clearance Calc 47.13 ml/min [facility] Estimated GFR (MDRD) Amer 42 mL/min >60 [facility] Comment on above: GFR Calc Estimated GFR (MDRD) Non-Af Amer 35 mL/min >60 [facility] Comment on above: Non- GFR Calc Protein Test strip Ql (U)Ord ered By: Eliazar Chavarria on 07-12-2023 Protein Ql (U) 100 mg/dl Negative [facility] RBC Auto (Bld) [#/Vol]Ordere d By: Eliazar Chavarria on 07-12-2023 RBC (Bld) [#/Vol] 4.89 10*6/uL 4.2-5.4 [facility] Serum or plasma calcium marisela urement (mass/volume)Ordered By: Eliazar Chavarria on 07-12-2023 Calcium [Mass/Vol] 9.2 mg/dL 8.5-10.1 [facility] r Serum or plasma creatinine m easurement (mass/volume)Ordered By: Eliazar Chavarria on 07-12-2023 Creatinine [Mass/Vol] 1.61 mg/dL 0.55-1.02 [facility] Comment on above: The validity of the calculated GFR & GFRAA in patients over 70 years has not been determined. Clinical correlation is essential. Serum or plasma urea nitroge n measurement (mass/volume)Ordered By: Eliazar Chavarria on 07-12-2023 Urea nitrogen [Mass/Vol] 14 mg/dL 7-18 [facility] Squamous epithelial cells de tection in urine sediment by light microscopyOrdered By: Eliazar Chavarria on 07-12-2023 Epithelial cells.squamous LM Ql (Urine sed) 0-5 SEEN /hpf 5-10 [facility] Thin prep Papanicolaou smear with manual screeningOrdered By: Eliazar Chavarria on 07-12-2023 Thin prep Papanicolaou smear with manual screening 3.8 g/dL 3.2-5.0 [facility] Thin prep Papanicolaou smear with manual screening 18 U/L 15-37 [facility] Thin prep Papanicolaou smear with manual screening 6 5-15 [facility] Urine blood detectionOrdered By: Eliazar Chavarria on 07-12-2023 RBC Ql (U) 10 /ul Negative [facility] Urine clarityOrdered By: Katina Chavarria on 07-12-2023 Clarity (U) Sl. Cloudy Clear [facility] Urine color determinationOrd ered By: Eliazar Chavarria on 07-12-2023 Color (U) Yellow Yellow [facility] Urine glucose detectionOrder ed By: Eliazar Chavarria on 07-12-2023 Glucose Ql (U) Normal mg/dl Normal [facility] Urine leukocyte esterase det ection by dipstickOrdered By: Eliazar Chavarria on 07-12-2023 Leukocyte esterase Test strip Ql (U) 100 /ul Negative [facility] Urine pHOrdered By: Eliazar Chavarria on 07-12-2023 pH (U) 6.0 [pH] 5.0 - 8.0 [facility] Urine sediment bacteria coun t by microscopy (number/high power field)Ordered By: Eliazar Chavarria on 07-12-2023 Bacteria LM.HPF (Urine sed) [#/Area] 0 /[HPF] None Seen [facility] Urine specific gravity measu rementOrdered By: Eliazar Chavarria on 07-12-2023 Specific gravity (U) [Rel density] 1.020 1.002-1.030 [facility] Urine urobilinogen measureme ntOrdered By: Eliazar Chavarria on 07-12-2023 Urobilinogen Ql (U) Normal mg/dl Normal [facility] CNPNon 07-06-2023 CNPN Telephone (AGSPINE1) -------- ALFIE HOGAN ([id number]) 1960 F Date Time Provider Department 07/06/23 AMY ROSS AGSPINE1 During your visit today, we recorded the following information about you: Prisca Bell PSS 07/06/2023 2:15 PM Signed Received referral from Annika Collado MD, PhD for patient to have Right L3 selective nerve root block Imaging- CT scan scheduled for 07/30/23 Anticoag- Eliquis Please review and advise Prisca Bell [place] to Dr. Ross, Beverley Lucash Jorge Alberto JOINER, Workers Compensation [facility] P: [id number] / F: [phone] / [email or web address] Amy Ross MD 07/06/2023 4:21 PM Signed Fast Track Injection Request: Referring Surgeon: Injection Requested: R L3-4 Selective Nerve Root Block Imaging reviewed: MRI L-spine from 06/2023 Anti-Coagulants: Eliquis - 3 day hold Patient appropriate for the requested procedure. Order placed. Staff informed to assist patient with scheduling. Amy Ross MD PhD Amy Ross MD 07/06/2023 4:21 PM Signed Addended by: AMY ROSS on: 07/06/2023 04:21 PM Modules accepted: Orders Prisca Bell, PSS 07/09/2023 8:24 AM Signed Auth good. Referral is updated. I will call to schedule. Prisca Bell Beading Installer to Dr. Ross, Dr. Meier, Josephine Azul PA-C, Workers Compensation [facility] P: [id number] / F: [phone] / [email or web address] ' Prisca Bell PSS 07/09/2023 11:41 AM Signed Spoke to patient about scheduling injection patient stated she doesn't want to get this done. Prisca Bell Beading Installer to Dr. Ross, Dr. Meier, Josephine Azul PA-C, Workers Compensation [facility] P: [id number] / F: [phone] / Allergies As of Date: 07/06/2023 Noted Allergy Reaction CAT HAIR STANDARDIZED ALLERGENIC *10/31/2017 14 - Other: See Comments DUST 04/13/2014 14 - Other: See Comments Comments: sneezing PENICILLINS 09/13/2005 PERCOCET (OXYCODONE-ACETAMINOPHEN )01/13/2015 9 - Itching SEASONAL ALLERGIES 04/13/2014 14 - Other: See Comments Comments: ragweed, cats, pollen cause sneezing and eyes watering Date Reviewed: 07/05/2023 Reviewed by: Alondra Zhong RN - Fully Assessed Reason for Visit: FAST TACK [Other] Primary Visit Diagnosis:Lumbar radiculopathy [M54.16] Order(s):PRE-CERT ORDER (AG) [[id number]] Order #: [id number]: 1 Prescriptions as of 07/09/2023 - carvedilol (COREG) 3.125 mg tablet Take 3.125 mg by mouth two times a day with meals. - rosuvastatin (CRESTOR) 40 mg tablet Take 40 mg by mouth once daily. - traZODone (DESYREL) 150 mg tablet Take 150 mg by mouth daily at bedtime. - apixaban (ELIQUIS) 5 mg (74 tabs) Take 2 tablets (10 mg) by mouth twice daily for 7 days. Then take 1 tablet (5 mg) by mouth twice daily for 23 days - QUEtiapine (SEROQUEL) 100 mg tablet 1 tablet daily at bedtime. - thiamine (VITAMIN B1) 100 mg tablet Take 100 mg by mouth three times daily. - rivastigmine (EXELON) 4.6 mg/24 hour patch 1 Patch once daily. - memantine (NAMENDA) 5 mg tablet Take 5 mg by mouth once daily. - magnesium oxide (MAG-OX) 400 mg (241.3 mg magnesium) tablet Take 1 tablet by mouth once daily. - hydrOXYzine HCl (ATARAX) 50 mg tablet Take 50 mg by mouth three times daily as needed. - folic acid 1 mg tablet Take 1 mg by mouth once daily. - FLUoxetine (PROZAC) 10 mg capsule Take 10 mg by mouth once daily. - docusate sodium (COLACE) 100 mg capsule 2 capsules as needed. - busPIRone (BUSPAR) 5 mg tablet Take 5 mg by mouth three times daily. - benztropine (COGENTIN) 0.5 mg tablet Take 0.5 mg by mouth twice daily as needed. - prochlorperazine (COMPAZINE) 10 mg tablet Take 1 tablet by mouth every 6 hours as needed for Nausea/Vomiting. - niacin (NIACIN) 500 mg tablet Take 1 tablet by mouth twice daily with meals. - potassium chloride (K-TAB) 10 mEq tablet Take 6 tablets by mouth twice daily. - mometasone-formoterol (DULERA) 100-5 mcg/actuation inhaler Inhale 2 Puffs as instructed twice daily. - pantoprazole DR (PROTONIX) 40 mg tablet Take 40 mg by mouth once daily. - albuterol HFA (VENTOLIN HFA) 90 mcg/actuation inhaler Inhale 2 Puffs as instructed every 4 hours as needed for Wheezing/Shortness of Breath. Problem List As Of Date 07/06/2023 Noted Resolved CHOLECYSTITIS SEE ALSO GALLBLADDER CHRONIC [K*09/11/2006 12/15/2014 Diaphragmatic hernia without mention of obstruc*04/11/2011 Acute gastritis without mention of hemorrhage [*04/11/2011 12/15/2014 Esophagitis, unspecified [K20.90] 04/11/2011 12/15/2014 Dyspepsia and other specified disorders of func*04/11/2011 12/15/2014 Hypertension [I10] 12/15/2014 Tobacco use disorder [F17.200] 12/15/2014 GENNARO (obstructive sleep apnea) [G47.33] Arthritis, multiple joint involvement [M12.9] Asthma (more content not included)... [facility] CNOVon 07-05-2023 CNOV Office Visit (NEAGCL M) -------- ALFIE HOGAN ([id number]) 1960 F Date Time Provider Department 07/05/23 10:30 AM ANNIKA COLLADO NEAGCLM During your visit today, we recorded the following information about you: Pulse Blood pressure Weight 102/minute 114/85 112.5 kg Annika Collado MD, PhD 07/05/2023 2:01 PM Signed NEUROSURGERY CONSULT NOTE Annika Collado MD, PhD Date of visit: July 05, 2023 Patient Name: Ms.Kimberly Karli Hogan Date of : 1960 Current Age: [age] year old Sex: female MRN/E# [id number] Chief Complaint: No chief complaint on file. HISTORY OF PRESENT ILLNESS : The patient is a 62 year old, right handed female with a past medical history of abdominal pain, acute gastritis, acute renal failure, anxiety, arthritis, asthma, DDD, esophagitis, HPL, HTN, kidney disease, GENNARO, ovarian cyst, phlebitis and thrombophlebitis, tobacco use and urinary calculus who is referred by Dr. Caro for neurosurgical evaluation. Today she states she underwent a prior lumbar fusion in [address] Corrales and noted her symptoms were similar to the ones she endorses today. She reports resolution of symptoms for a few years after surgery. In April-May he low back pain returned and worsened to the point of not being able to ambulate. She has been incontinent of bowel and bladder with no sensation for 2 months. She notes low back pain that radiates into her bilateral gluteal aspects and right groin. Her pain radiate down the posterior thigh to the ankle. She endorses numbness and tingling to the 1st 3 digits on the right foot and intermittent numbness and tingling down her leg. She endorses right leg weakness that is also pain limited. She denies any recent falls. She is unable to ambulate or stand for more than a few minutes without her back feeling like its going to give out. She participated with physical therapy about 8 months ago at [facility] without relief. She has seen pain management and obtained injections in the past, but nothing recent. She was evaluated 5 years ago for a Spinal cord stimulator, but was unable to due to scar tissue. She notes nothing helps her pain and is taking an excessive amount of Aleve a day. She presents for imaging review, evaluation and plan of care. 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 Corrales PAIN EVALUATION No data found in the last 1 encounters. PAST MEDICAL HISTORY Diagnosis Date Abdominal pain, right lower quadrant Acute gastritis without mention of hemorrhage Acute renal failure (HCC) 2011 2012 episodes of Cr elevation Anxiety Arthritis, multiple joint involvement Asthma DDD (degenerative disc disease), lumbar Depression with anxiety Diaphragmatic hernia without mention of obstruction or gangrene Dyspepsia and other specified disorders of function of stomach Esophagitis, unspecified Hyperlipidemia 11/28/2011 Hypertension Kidney disease GENNARO (obstructive sleep apnea) on CPAP Other and unspecified ovarian cyst Ovarian cyst Phlebitis and thrombophlebitis of unspecified site Tobacco use disorder Urinary calculus, unspecified Renal stones PAST SURGICAL HISTORY Procedure Laterality Date APPENDECTOMY COLONOSCOPY FLX DX W/COLLJ SPEC WHEN PFRMD 09/15/2005 [facility] Colonoscopy EGD TRANSORAL BIOPSY SINGLE/MULTIPLE 08/30/06 EGD TRANSORAL BIOPSY SINGLE/MULTIPLE 04/11/11 LAPS SURG CHOLECYSTECTOMY W/CHOLANGIOGRAPHY 08/30/06 OOPHORECTOMY, PART/TOTAL UNILAT/BILAT 2005 bilateral oophorectomy benign cysts, appendectomy PAST SURGICAL HISTORY OF 2000?, 2009 ruptured disc L3-L4 repair; fusion PAST SURGICAL HISTORY OF tendonectomy right elbow PAST SURGICAL HISTORY OF 2008 left MEAGAN PAST SURGICAL HISTORY OF 12/30/2014 right MEAGAN RPR UMBILICAL HRNA 5 YRS/> REDUCIBLE grade 6 Hernia repair, umbilical >5yr TONSILLECTOMY HX VAGINAL HYSTERECTOMY UTERUS 250 GM/< adenomysis FAMILY HISTORY Problem Relation Age of Onset Cancer Mother pancreatic Cancer Maternal Grandmother stomach Colon Cancer Paternal Grandmother Hypertension Father Colon Cancer Father 72 Stroke Paternal Grandfather ALLERGIES Allergen Reactions Cat Hair Standardiz* Other: See Comments Dust Other: See Comments sneezing Penicillins Percocet [Oxycodone* Itching Seasonal Allergies Other: See Comments ragweed, cats, pollen cause sneezing and eyes watering Current Outpatient Medications Medication Sig Dispense Refill apixaban (ELIQUIS) 5 mg (74 tabs) Take 2 tablets (10 mg) by mouth twice daily for 7 days. Then take 1 tablet (5 mg) by mouth twice daily for 23 days 74 tablet 0 QUEtiapine (SEROQUEL) 100 mg tablet 1 tablet daily at bedtime. thiamine (more content not included)... [facility] 36on 06-28-2023 36 Rx refused, these we re all DC'd [facility] 36 All rx's were Dc'd please advise. [facility] 36 Prescription Request : Last medication check: 02/15/23 Last physical exam: 11/26/20 Next scheduled appointment: na Last date of refill on this medication 03/09/23 [facility] Absolute lymphocyte countOrd ered By: Corin Mariscal on 06-18-2023 Lymphocytes Auto (Unsp spec) [#/Vol] 0.73 10*3/uL 0.83-4.51 [facility] Basophil percentageOrdered B y: Corin [place] on 06-18-2023 Basophils/100 WBC (Bld) 1.0 % 0-1 [facility] Bilirubin [Mass/Vol] 1.40 mg/dL 0.20-1.00 [facility] Comment on above: For patients on eltr ombopag therapy, use of Dimension [place] TBIL is not recommended. Chloride [Moles/Vol] 106 mmol/L 98-107 [facility] Cholesterol [Mass/Vol] 137 mg/dL <200 [facility] Comment on above: <200 mg/dL Desirable 200-240 mg/dL Borderline >240 mg/dL High Risk Eosinophils/100 WBC (Bld) 1.2 % 0-5 [facility] Glucose [Mass/Vol] 89 mg/dL 74-106 [facility] Neutrophils (Bld) [#/Vol] 3.0 10*3/uL 2.0-7.7 [facility] Neutrophils/100 WBC (Bld) 72.3 % 47-70 [facility] Potassium [Moles/Vol] 5.1 mmol/L 3.5-5.1 [facility] Protein [Mass/Vol] 6.8 g/dL 6.4-8.2 [facility] Sodium [Moles/Vol] 139 mmol/L 136-145 [facility] Triglyceride [Mass/Vol] 121 mg/dL <199 [facility] Comment on above: The drugs N-Acetylcy steine and Metamizole may falsely depress this assay.Serum Triglycerides Reference Interval Normal <150 mg/dL Borderline high 150 - 199 mg/dL High 200 - 499 mg/dL Very High > or = 500 mg/dL WBC (Bld) [#/Vol] 4.2 10*3/uL 4.4-11.0 [facility] Blood erythrocytes count (nu mber/volume)Ordered By: Corin Mariscal on 06-18-2023 RBC (Bld) [#/Vol] 4.54 10*6/uL 4.2-5.4 [facility] Blood hemoglobin measurement (mass/volume)Ordered By: Corin Mariscal on 06-18-2023 Hemoglobin (Bld) [Mass/Vol] 12.3 g/dL 12.0-15.0 [facility] Blood lymphocytes/100 leukoc ytesOrdered By: Corin Mariscal on 06-18-2023 Lymphocytes/100 WBC (Bld) 17.4 % 19-41 [facility] Blood monocytes/100 leukocyt esOrdered By: Corin Mariscal on 06-18-2023 Monocytes/100 WBC (Bld) 7.9 % 0-10 [facility] Blood platelet mean volumeOr dered By: Corin Mariscal on 06-18-2023 Platelet mean volume (Bld) [Entitic vol] 10.7 fL 6.2-12.0 [facility] Determination of erythrocyte mean corpuscular volume (MCV)Ordered By: Corin Mariscal on 06-18-2023 MCV (RBC) [Entitic vol] 91.4 fL 81-99 [facility] Hematocrit Auto (Bld) [Volum e fraction]Ordered By: Corin Mariscal on 06-18-2023 Hematocrit (Bld) [Volume fraction] 41.5 % 37-47 [facility] Laboratory - Chemistry and C hemistry - challengeOrdered By: [facility] on 06-18-2023 ALP [Catalytic activity/Vol] 154 U/L 45-117 [facility] ALT [Catalytic activity/Vol] 40 U/L 13-56 [facility] CO2 [Moles/Vol] 26.0 mmol/L 21.0-32.0 [facility] Globulin (S) [Mass/Vol] 2.6 g/dL 2.2-4.2 [facility] Urea nitrogen/Creatinine [Mass ratio] 18.3 mg/mg 10-20 [facility] - Hematology and Cell countsOrdered By: [facility] on 06-18-2023 Erythrocyte distribution width (RBC) [Entitic vol] 47.1 fL 35.1-43.9 [facility] Erythrocyte distribution width (RBC) [Ratio] 14.0 % 11.6-14.6 [facility] Immature granulocytes/100 WBC (Bld) 0.200 % 0.0-0.9 [facility] Comment on above: IG% - Immature Granu locytes (promyelocytes, myelocytes and metamyelocytes) > 1% indicates that a LEFT SHIFT is Present. MCH (RBC) [Entitic mass] 27.1 pg 27.0-32.0 [facility] Nucleated RBC/100 WBC (Bld) [Ratio] 0 % 0-5 [facility] MCHC Auto (RBC) [Mass/Vol]Or dered By: [facility] on 06-18-2023 MCHC (RBC) [Mass/Vol] 29.6 g/dL 32-36 [facility] No Panel InformationOrdered By: [facility] Mariscal on 06-18-2023 Estimated GFR (MDRD) Amer 69 mL/min >60 [facility] Comment on above: GFR Calc Estimated GFR (MDRD) Non-Af Amer 57 mL/min >60 [facility] Comment on above: Non- GFR Calc Thyroid Stimulating Hormone (TSH) 0.48 uIU/mL 0.358-3.74 [facility] Vitamin D 25-Hydroxy 9.8 ng/mL [facility] Comment on above: Vitamin D 25(OH) Sta tus Range Deficiency <20 ng/mL (50nmol/L) Insufficiency 20 - 30 ng/mL (50 - 75 nmol/L) Sufficiency 30 - 100 ng/mL (75 - 250 nmol/L) Toxicity >100 ng/mL (>250 nmol/L) Platelets bldOrdered By: Mary Mariscal on 06-18-2023 Platelets (Bld) [#/Vol] 153 10*3/uL 150-450 [facility] Serum or plasma albumin marisela urement (mass/volume)Ordered By: Corin Mariscal on 06-18-2023 Albumin [Mass/Vol] 4.2 g/dL 3.2-5.0 [facility] Serum or plasma albumin/glob ulin mass ratioOrdered By: Corin Mariscal on 06-18-2023 Albumin/Globulin [Mass ratio] 1.6 {ratio} 0.9-2.4 [facility] Serum or plasma calcium marisela urement (mass/volume)Ordered By: Corin Mariscal on 06-18-2023 Calcium [Mass/Vol] 9.6 mg/dL 8.5-10.1 [facility] Serum or plasma cholesterol in HDL measurement (mass/volume)Ordered By: Corin Mariscal on 06-18-2023 Cholesterol in HDL [Mass/Vol] 53 mg/dL >40 [facility] Comment on above: The drugs N-Acetylcy steine and Metamizole may falsely depress this assay. Reference Range HDL <40 mg/dL Low HDL Cholesterol HDL >or= 60 mg/dL High HDL Cholesterol Serum or plasma cholesterol in VLDL measurement (mass/volume)Ordered By: Corin Mariscal on 06-18-2023 Cholesterol in VLDL [Mass/Vol] 24 mg/dL 5-40 [facility] Serum or plasma creatinine m easurement (mass/volume)Ordered By: Corin Mariscal on 06-18-2023 Creatinine [Mass/Vol] 1.04 mg/dL 0.55-1.02 [facility] Comment on above: The validity of the calculated GFR & GFRAA in patients over 70 years has not been determined. Clinical correlation is essential. Serum or plasma low density lipoprotein (LDL) cholesterol measurement (mass/volume)Ordered By: Corin Mariscal on 06-18-2023 Cholesterol in LDL [Mass/Vol] 60 mg/dL 0-130 [facility] Serum or plasma urea nitroge n measurement (mass/volume)Ordered By: Corin Mariscal on 06-18-2023 Urea nitrogen [Mass/Vol] 19 mg/dL 7-18 [facility] Thin prep Papanicolaou smear with manual screeningOrdered By: Corin Mariscal on 06-18-2023 Thin prep Papanicolaou smear with manual screening 21 U/L 15-37 [facility] Thin prep Papanicolaou smear with manual screening 7 -15 [facility] 36on 06-07-2023 36 Refused, these medications were stopped [place] [id number] These were stopped i n the past and refused 06/05/[address] 06-06-2023 36 Rx refused per TE on 08/08/22. Thank you. [place] [id number] Do not send refill i n for Trazodone per TE 08-08-[address] 06-05-2023 36 Rx sent, some refuse d due to being stopped in the past. [place] [id number] Prescription Request : Last medication check: 02/15/23 Last physical exam: none Next scheduled appointment: 06/13/23 Last date of refill on this medication Pantoprazole 01/15/23 30 day 4 refills Rosuvastatin 01/15/23 30 day 4 refills Mag ox, folic acid, thiamine- all discontinued on 02/15/23 by CHANDLER [place] [id number] 05-07-2023 36 Rx sent. Follow up a s scheduled. [facility] 36 Rx sent [place] [id number] Prescription Request : Last medication check: 02/15/23 Last physical exam: 11/26/20 Next scheduled appointment: 06/13/23 Last date of refill on this medication dulera and potassium 11/17/22, exelon 02/09/23 [place] [id number] Prescription Request : Last medication check: 02-15-23 Last physical exam: 11-26-20 Next scheduled appointment: 06-13-23 Last date of refill on this medication 04-09-[address] 04-16-2023 36 Rx sent. Follow up a s scheduled. [place] [id number] Prescription Request : Last medication check: 02/15/23 Last physical exam: 11/26/20 Next scheduled appointment: 06/13/23 Last date of refill on this medication 10/31/22 #[address] 04-09-2023 36 Rx sent. Follow up a s scheduled. [place] [id number] Prescription Request : Last medication check: 02-15-23 Last physical exam: 11-26-20 Next scheduled appointment: 06-13-23 Last date of refill on this medication 03-13-[address] 03-19-2023 36 Prescription Request : Last medication check: 02/15/23 Last physical exam: none Next scheduled appointment: 06/13/23 Last date of refill on this medication 10/09/[address] 03-13-2023 36 Reviewed chart. Refi ll appropriate. RX sent. [place] [id number] Prescription Request : Last medication check: 02/15/23 Last physical exam: none Next scheduled appointment: 06/13/23 Last date of refill on this medication 02/19/[address] 03-12-2023 36 Okay, thank you [address] 03-09-2023 36 S: Patient spoke wit h [facility] nurse regarding nausea B: Onset of symptoms/concern 3 days A: Pt has been having nausea, vomiting and annoying headache that started on 03-06-23. Headache is in the forehead. Rates 3-/. Has been having trouble sleeping. Gets nauseated when she is tired. Usually only vomits once in 24 hours. Had diarrhea for 2 days but nonne today Has been drinking fluids. Asking for prescription of zofran to be sent to the pharmacy. Denies fever, chest pain, sob, blood in emesis, or abdominal pain. Pt is not diabetic. Office is closed. Pt asked if the provider could be notified because she does not want to go the weekend with n/v. R: Allergies reviewed and pharmacy verified - Emilee Gamez. Paged provider station air traffic control specialist via secure chat - Yessi Silver CNP Verbal order given to [facility] nurse for zofran 4 mg #12, 1 po every 8 hours prn for n/v with no refill. Read back to provider for verification. Pt to follow up with the office next week if it does not resolve. Prescription called to pharmacy at 2:21 pm, spoke with Antonella. Keep well hydrated. Patient informed and understands care advice. Instructed to call back with any further questions or concerns. Reason for Disposition Unexplained nausea Protocols used: [id number] [place] [id number] Reviewed chart. Refi ll appropriate. RX sent. [place] [phone] Medication name: trospium (Sanctura Medication dosage: 20mg Monthly quantity needed: 60 How many day supply requestin days Medication route: oral (PO) Medication administration time(s): 2 times a day (BID) If taking medication PRN, reason for taking medication: N/A If this is a controlled substance do you receive this or any other controlled medication from any other doctor or facility: N/A Ordering provider: Dr Moran Date of last office visit: 02/15/23 Date of next office visit: 06/13/22 Date of last refill: (see medication tab): 11/17/22 Updated/Validated preferred pharmacy: Yes Patient instructed to contact the pharmacy prior to picking up the medication: N/A [place] [id number] 02-19-2023 36 Prescription Request : Last medication check: 02/15/23 Last physical exam: none Next scheduled appointment: 06/13/23 Last date of refill on this medication 01/22/23 30 days [facility] 36on 02-15-2023 36 Rx refused, this was requested to send this is not due till the middle of next week [place] [id number] Prescription Request : Last medication check: 12-25-22 Last physical exam: n/a Next scheduled appointment: 06/13/2023 Last date of refill on this medication 01/22/23 [facility] Office Visiton 02-15-2023 Follow-up visit [id number] Alfie Hogan 1960 F Date Provider Department Center 02/15/2023 [id number] MORAN [facility] Family History Problem Relation Age of Onset Mental illness Mother Cancer Mother Comments: pancreatic Alcohol abuse Mother Depression Mother High Blood Pressure Father Cancer Father Comments: colon Alcohol abuse Father Hypertension Father Colon cancer Father Alcohol abuse Sister Alcohol abuse Brother Family Status - Relation Status Age at Mother Father Sister Brother Level of Service:14320 [place] OFFICE/OUTPATIENT ESTABLISHED MOD MDM 30-39 MIN Reason for Visit and Comments: Abnl Movement [748] - TD - concerned that caused by some meds she is on stopping meds [Other] - Wanting to come off of some of the meds Breathing Problem [17] - Wears oxygen 25/12 Falls, Balance [890] - Still continue to have problems [facility] Progress Noteon 02-15-2023 Progress Note Controlled, continue rosuvastatin 40 mg daily [facility] Progress Note Partial remission, continue Prozac 40 mg [facility] Progress Note Partial remission, continue Prozac 40 mg daily [facility] Progress Note Stable, just a mild anemia at this time. [facility] Progress Note Encouraged increased exercise she says she has been going to the gym and even if she cannot get to the gym she should go walking every day. She is to avoid carbs at all cost. [facility] Progress Note Stable, continue Protonix 40 mg [facility] Progress Note Controlled, and in f act it is low we will have her stop her clonidine should go to 1 tablet daily for a week and then stop it. She is to monitor her blood pressure. Continue carvedilol 3.125 twice a day. [facility] Progress Note Continue oxygen main ly at night [facility] Progress Note Physical therapy con sult for strengthening and balance [facility] Progress Note Continue trazodone 1 50 mg nightly [facility] Progress Note 02/15/2023 Alfie Hogan (: 1960) is a 62 y.o. female , Established patient, here for evaluation of the following chief complaint(s): Abnl Movement (TD - concerned that caused by some meds she is on ); stopping meds (Wanting to come off of some of the meds); Breathing Problem (Wears oxygen /); and Falls, Balance (Still continue to have problems ) ASSESSMENT/PLAN: 1. Chronic insomnia Assessment & Plan: Continue trazodone 150 mg nightly 2. Morbid (severe) obesity due to excess calories (HCC) Assessment & Plan: Encouraged increased exercise she says she has been going to the gym and even if she cannot get to the gym she should go walking every day. She is to avoid carbs at all cost. 3. Chronic hypoxemic respiratory failure (CMS/HCC) ([facility]) Assessment & Plan: Continue oxygen mainly at night 4. Other pancytopenia (CMS/HCC) ([facility]) Assessment & Plan: Stable, just a mild anemia at this time. 5. Essential hypertension Assessment & Plan: Controlled, and in fact it is low we will have her stop her clonidine should go to 1 tablet daily for a week and then stop it. She is to monitor her blood pressure. Continue carvedilol 3.125 twice a day. 6. Gastroesophageal reflux disease without esophagitis Assessment & Plan: Stable, continue Protonix 40 mg 7. Current moderate episode of major depressive disorder without prior episode ([facility]) Assessment & Plan: Partial remission, continue Prozac 40 mg 8. Anxiety Assessment & Plan: Partial remission, continue Prozac 40 mg daily 9. Pure hypercholesterolemia Assessment & Plan: Controlled, continue rosuvastatin 40 mg daily 10. Ataxia Assessment & Plan: PT referral for strengthening and balance Orders: - External referral to Physical Therapy 11. Weakness of both lower extremities Assessment & Plan: Physical therapy consult for strengthening and balance Orders: - External referral to Physical Therapy No follow-ups on file. SUBJECTIVE/OBJECTIVE: DHRUV Lydia comes in today for follow-up on her multiple health issues, a couple of issues she is concerned about 1 is that she continues to have difficulty with her legs and walking and she has had some falls. She also says that she sometimes has some strange movements and she is concerned that her medications may be causing TD, reviewing her medications she is on nothing that would cause that. She has a history of hypertension but her blood pressure is excellent today is actually on the low side she is wondering about coming off of her carvedilol or her clonidine, the clonidine would be the 1 that we will stop. Her reflux seems to be well controlled and her depression is doing okay right now, she continues to need oxygen for breathing and she continues to need trazodone for her sleep. Review of Systems Constitutional: Negative for chills and fever. Respiratory: Negative for shortness of breath. Cardiovascular: Negative for chest pain and palpitations. Gastrointestinal: Negative for abdominal pain, blood in stool, constipation and diarrhea. Genitourinary: Negative for dyspareunia, dysuria, frequency, hematuria and urgency. Neurological: Negative for weakness and numbness. Psychiatric/Behavioral: Negative for dysphoric mood. The patient is not nervous/anxious. Vitals: 02/15/23 1150 BP: 96/53 Pulse: 65 SpO2: 94% Weight: 239 lb 9.6 oz (109 kg) Height: 5' 8 (1.727 m) Physical Exam Vitals and nursing note reviewed. Constitutional: General: She is not in acute distress. Appearance: Normal appearance. HENT: Head: Normocephalic. Right Ear: Tympanic membrane, ear canal and external ear normal. Left Ear: Tympanic membrane, ear canal and external ear normal. Mouth/Throat: Mouth: Mucous membranes are moist. Pharynx: Oropharynx is clear. Eyes: Extraocular Movements: Extraocular movements intact. Pupils: Pupils are equal, round, and reactive to light. Neck: Vascular: No carotid bruit. Cardiovascular: Rate and Rhythm: Normal rate and regular rhythm. Heart sounds: Normal heart sounds. No murmur heard. Pulmonary: Effort: Pulmonary effort is normal. Breath sounds: Normal breath sounds. Abdominal: General: Bowel sounds are normal. Palpations: Abdomen is soft. Musculoskeletal: General: Normal range of motion. Cervical back: Normal range of motion. Lymphadenopathy: Cervical: No cervical adenopathy. Skin: General: Skin is warm and dry. Neurological: General: No focal deficit present. Mental Status: She is alert and oriented to person, place, and time. Psychiatric: Mood and Affect: Mood normal. An electronic signature was used to authenticate this note. Bernardino Moran MD 02/15/2023 3:57 PM [facility] Progress Note Patient verified by last name and date of . [facility] 36on 02-14-2023 36 Left a message to re turn call to [facility] for appointment tomorrow. Please arrive 15 minutes early with your insurance card and photo ID. Thank you! [address] 02-09-2023 36 Rx sent [place] [id number] Prescription Request : Last medication check: 12-25-22 Last physical exam: n/a Next scheduled appointment: 02-12-23 Last date of refill on this medication 12-18-[address] 01-22-2023 36 Rx sent. Follow up a s scheduled. [place] [id number] Prescription Request : Last medication check: 12/25/22 Last physical exam: 06/07/22 Next scheduled appointment: 06/13/23 Last date of refill on this medication 12/25/22 for [address] 01-17-2023 36 Rx refused, this is too early [place] [id number] Prescription Request : Last medication check: 12/25/22 Last physical exam: 06/07/22 Next scheduled appointment: 06/13/23 Last date of refill on this medication 12/25/[address] 01-15-2023 36 Rx sent. Follow up a s scheduled. [place] [id number] Prescription Request : Last medication check: 12/25/22 Last physical exam: 06/07/22 Next scheduled appointment: 06/13/23 Last date of refill on this medication 12/15/22 28 day no refill sent on all meds [facility] Absolute lymphocyte countOrd ered By: Junior Salter on 01-04-2023 Lymphocytes Auto (Unsp spec) [#/Vol] 0.78 10*3/uL 0.83-4.51 [facility] Basophil percentageOrdered B y: Junior Salter on 01-04-2023 Basophils/100 WBC (Bld) 0.2 % 0-1 [facility] Chloride [Moles/Vol] 106 mmol/L 98-107 [facility] Eosinophils/100 WBC (Bld) 2.0 % 0-5 [facility] Glucose [Mass/Vol] 110 mg/dL 74-106 [facility] Comment on above: Fasting Glucose resu lt from 100 to 125 mg/dL suggests IMPAIRED HOMEOSTASIS per A.D.A. criteria. Neutrophils (Bld) [#/Vol] 2.8 10*3/uL 2.0-7.7 [facility] Neutrophils/100 WBC (Bld) 69.3 % 47-70 [facility] Potassium [Moles/Vol] 3.5 mmol/L 3.5-5.1 [facility] Sodium [Moles/Vol] 142 mmol/L 136-145 [facility] WBC (Bld) [#/Vol] 4.1 10*3/uL 4.4-11.0 [facility] Blood erythrocytes count (nu mber/volume)Ordered By: Junior Salter on 01-04-2023 RBC (Bld) [#/Vol] 4.38 10*6/uL 4.2-5.4 [facility] Blood hemoglobin measurement (mass/volume)Ordered By: Junior Salter on 01-04-2023 Hemoglobin (Bld) [Mass/Vol] 12.2 g/dL 12.0-15.0 [facility] Blood lymphocytes/100 leukoc ytesOrdered By: Junior Salter on 01-04-2023 Lymphocytes/100 WBC (Bld) 19.0 % 19-41 [facility] Blood monocytes/100 leukocyt esOrdered By: Juniorunique Salter on 01-04-2023 Monocytes/100 WBC (Bld) 9.0 % 0-10 [facility] Blood platelet mean volumeOr dered By: Junior Salter on 01-04-2023 Platelet mean volume (Bld) [Entitic vol] 9.2 fL 6.2-12.0 [facility] Determination of erythrocyte mean corpuscular volume (MCV)Ordered By: Junior Salter on 01-04-2023 MCV (RBC) [Entitic vol] 92.5 fL 81-99 [facility] Hematocrit Auto (Bld) [Volum e fraction]Ordered By: Juniorunique Salter on 01-04-2023 Hematocrit (Bld) [Volume fraction] 40.5 % 37-47 [facility] Laboratory - Chemistry and C hemistry - challengeOrdered By: Junior Salter on 01-04-2023 CO2 [Moles/Vol] 32.0 mmol/L 21.0-32.0 [facility] Urea nitrogen/Creatinine [Mass ratio] 15.4 mg/mg 10-20 [facility] - Hematology and Cell countsOrdered By: Junior Salter on 01-04-2023 Erythrocyte distribution width (RBC) [Entitic vol] 42.9 fL 35.1-43.9 [facility] Erythrocyte distribution width (RBC) [Ratio] 12.7 % 11.6-14.6 [facility] Immature granulocytes/100 WBC (Bld) 0.500 % 0.0-0.9 [facility] Comment on above: IG% - Immature Granu locytes (promyelocytes, myelocytes and metamyelocytes) > 1% indicates that a LEFT SHIFT is Present. MCH (RBC) [Entitic mass] 27.9 pg 27.0-32.0 [facility] Nucleated RBC/100 WBC (Bld) [Ratio] 0 % 0-5 [facility] MCHC Auto (RBC) [Mass/Vol]Or dered By: Junior Salter on 01-04-2023 MCHC (RBC) [Mass/Vol] 30.1 g/dL 32-36 [facility] No Panel InformationOrdered By: Junior Salter on 01-04-2023 Estimated Creatinine Clearance Calc 50.94 ml/min [facility] Estimated GFR (MDRD) Amer 61 mL/min >60 [facility] Comment on above: GFR Calc Estimated GFR (MDRD) Non-Af Amer 50 mL/min >60 [facility] Comment on above: Non- GFR Calc Platelets bldOrdered By: Junior Salter on 01-04-2023 Platelets (Bld) [#/Vol] 121 10*3/uL 150-450 [facility] Serum or plasma calcium marisela urement (mass/volume)Ordered By: Junior Salter on 01-04-2023 Calcium [Mass/Vol] 9.4 mg/dL 8.5-10.1 [facility] Serum or plasma creatinine m easurement (mass/volume)Ordered By: Junior Salter on 01-04-2023 Creatinine [Mass/Vol] 1.17 mg/dL 0.55-1.02 [facility] Comment on above: The validity of the calculated GFR & GFRAA in patients over 70 years has not been determined. Clinical correlation is essential. Serum or plasma urea nitroge n measurement (mass/volume)Ordered By: Junior Salter on 01-04-2023 Urea nitrogen [Mass/Vol] 18 mg/dL 12-19 [facility] Thin prep Papanicolaou smear with manual screeningOrdered By: Junior Salter on 01-04-2023 Thin prep Papanicolaou smear with manual screening 4 5-15 [facility] 36on 12-25-2022 36 Prescription Request : Last medication check: 08/29/22 Last physical exam: 06/07/22 Next scheduled appointment: 12/25/22-today with Dr. Moran Last date of refill on this medication 11/27/22 [facility] Progress Noteon 12-25-2022 Progress Note Improved, continue trospium 20 mg twice daily [facility] Progress Note Controlled, continue rosuvastatin 40 mg daily [facility] Progress Note Remission, continue fluoxetine 40 mg daily [facility] Progress Note Stable, currently on no medications for this [facility] Progress Note This is currently st able although we do not have any recent lab work or blood pressures [facility] Progress Note Control unknown, las t office visit 6 months ago her blood pressure was significantly elevated however on recheck it was significantly improved but still high, continue clonidine 0.1 mg tablets twice a day carvedilol 3.125 mg twice a day Normal [facility] Progress Note Stable on oxygen, continue current settings. Normal [facility] Progress Note Currently stable on Dulera and albuterol. [facility] Progress Note Stable on CPAP, uses it every night between 6 and 8 hours. Normal [facility] Progress Note Stable on Namenda 5 mg twice a day and Exelon 1.5 mg daily [facility] Progress Note Currently stable on trazodone 150 mg at bedtime [facility] Progress Note 12/25/2022 Alfie Hogan (: 1960) is a 62 y.o. female , Established patient, here for evaluation of the following chief complaint(s): Anxiety, Depression, Hyperlipidemia, GERD, Hypertension, Asthma, and Medication Check (6 month ) ASSESSMENT/PLAN: 1. Chronic insomnia Assessment & Plan: Currently stable on trazodone 150 mg at bedtime 2. GENNARO (obstructive sleep apnea) Assessment & Plan: Stable on CPAP, uses it every night between 6 and 8 hours. 3. 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) Assessment & Plan: Stable on Namenda 5 mg twice a day and Exelon 1.5 mg daily 4. Chronic hypoxemic respiratory failure (CMS/HCC) (HCC) Assessment & Plan: Stable on oxygen, continue current settings. 5. Essential hypertension Assessment & Plan: Control unknown, last office visit 6 months ago her blood pressure was significantly elevated however on recheck it was significantly improved but still high, continue clonidine 0.1 mg tablets twice a day carvedilol 3.125 mg twice a day 6. Hypertensive heart and chronic kidney disease with heart failure and stage 1 through stage 4 chronic kidney disease, or unspecified chronic kidney disease (HCC) Assessment & Plan: This is currently stable although we do not have any recent lab work or blood pressures 7. Ulcerative colitis without complications, unspecified location ([facility]) Assessment & Plan: Stable, currently on no medications for this 8. Current moderate episode of major depressive disorder without prior episode ([facility]) Assessment & Plan: Remission, continue fluoxetine 40 mg daily 9. Pure hypercholesterolemia Assessment & Plan: Controlled, continue rosuvastatin 40 mg daily 10. Urinary frequency Assessment & Plan: Improved, continue trospium 20 mg twice daily 11. Mild intermittent asthma without complication Assessment & Plan: Currently stable on Dulera and albuterol. Follow up in about 6 months (around 06/27/2023) for AWV. SUBJECTIVE/OBJECTIVE: Patient was seen today via Telehealth by agreement and consent in light of the current COVID-19 pandemic. I used the following Telehealth technology: Audio and video capabilities Patient location: Home. This patient encounter is appropriate and reasonable under the circumstances given the patient's particular presentation at this time. The patient has been advised of the potential risks and limitations of this mode of treatment (including but not limited to the absence of in-person examination) and has agreed to be treated in a remote fashion in spite of them. Any and all of the patient's/patient's family's questions on this issue have been answered and I have made no promises or guarantees to the patient. The patient has also been advised to contact this office for worsening conditions or problems, and seek emergency medical treatment and/or call 911 if the patient deems either necessary. The patient stated that they are currently in the [facility]. If the patient is a minor, permission has been obtained by the parent or guardian for the patient to receive medical care at this visit. DHRUV Freeman called in today for a telehealth video virtual visit, this is for follow-up on her COPD, hypertension which was elevated the last time she was at and we have no idea what it is today. Her depression and anxiety and her insomnia and the seem to be fairly well controlled on current medications. He also has a history of some dementia which seems to be stabilized on the Exelon and Namenda. Review of Systems Constitutional: Negative for chills and fever. Respiratory: Negative for shortness of breath. Cardiovascular: Negative for chest pain and palpitations. Gastrointestinal: Negative for abdominal pain, blood in stool, constipation and diarrhea. Genitourinary: Positive for frequency. Negative for dyspareunia, dysuria, hematuria and urgency. Neurological: Negative for weakness and numbness. Psychiatric/Behavioral: Negative for dysphoric mood. The patient is not nervous/anxious. There were no vitals filed for this visit. Physical Exam Constitutional: General: She is not in acute distress. Appearance: Normal appearance. She is obese. Comments: Speaking in full sentences Eyes: Extraocular Movements: Extraocular movements intact. Pupils: Pupils are equal, round, and reactive to light. Neurological: Mental Status: She is alert. An electronic signature was used to authenticate this note. Bernardino Moran MD 12/25/2022 4:39 PM [facility] 12-21-2022 36 Mychart msg sent [facility] 12-18-2022 36 Rx sent. Follow up a s scheduled. [facility] 36 Prescription Request : Last medication check: 08/29/22 Last physical exam: 06/07/22 Next scheduled appointment: 12/25/22 Last date of refill on this medication 09/22/22 [place] [id number] 36 Message released to patient as written. Note SUZY Hernandez CNP [facility] 12/15/22 11:40 AM Note Rx sent with no refills. Per her visit with Dr. Moran back in August she was supposed to follow up again in 2 weeks. Please schedule follow up appointment Patient's further questions if applicable: patient called in and is scheduled for 12/25/[address] Moran Were all questions from office addressed or relayed to the patient from encounter: Yes [facility] 36 LM Terri Garcia, [employer] [facility] 12/15/22 11:40 AM Note Rx sent with no refills. Per her visit with Dr. Moran back in August she was supposed to follow up again in 2 weeks. Please schedule follow up appointment [facility] 36 Rx sent with no refi lls. Per her visit with Dr. Moran back in August she was supposed to follow up again in 2 weeks. Please schedule follow up appointment. [facility] 36 Prescription Request : Last medication check: 08/29/22 Last physical exam: 06/07/22 Next scheduled appointment: 06/13/23 Last date of refill on this medication 06/30/22 and 07/03/22 30 days [address] 12-12-2022 36 Sent mychart msg [address] 11-27-2022 36 Already filled today. Normal [facility] 36 Already sent today please refuse. [facility] 36 Rx sent. Follow up a s scheduled. [facility] 36 Prescription Request : Last medication check: 08/29/22 Last physical exam: 11/26/20 Next scheduled appointment: 12/13/22 Last date of refill on this medication 10/31/22 90 days [address] 11-17-2022 36 Prescription Request : Last medication check: 08/29/22 Last physical exam: 05/15/22 Next scheduled appointment: 12/13/22 Last date of refill on this medication 05/15/22 1 inhaler 5 refills [facility] 36 Prescription Request : Last medication check: 08/29/22 Last physical exam: 05/15/22 Next scheduled appointment: 12/13/22 Last date of refill on this medication [facility] 08/15/22 1 month 3 refills Potassium 06/07/22 1 month 5 refills [facility] Absolute lymphocyte countOrd ered By: Jose Parry on 07-16-2022 Lymphocytes Auto (Unsp spec) [#/Vol] 1.06 10*3/uL 0.83-4.51 [facility] Basophil percentageOrdered B y: Jose Parry on 07-16-2022 Basophil percentage 5-10 SEEN /hpf 0-5 [facility] Basophils/100 WBC (Bld) 0.2 % 0-1 [facility] Bilirubin [Mass/Vol] 1.30 mg/dL 0.20-1.00 [facility] Comment on above: For patients on eltr ombopag therapy, use of [place] [place] TBIL is not recommended. Chloride [Moles/Vol] 101 mmol/L 98-107 [facility] Eosinophils/100 WBC (Bld) 0.2 % 0-5 [facility] Glucose [Mass/Vol] 105 mg/dL 74-106 [facility] Comment on above: Fasting Glucose resu lt from 100 to 125 mg/dL suggests IMPAIRED HOMEOSTASIS per A.D.A. criteria. Neutrophils (Bld) [#/Vol] 3.8 10*3/uL 2.0-7.7 [facility] Neutrophils/100 WBC (Bld) 71.0 % 47-70 [facility] Potassium [Moles/Vol] 4.4 mmol/L 3.5-5.1 [facility] Protein [Mass/Vol] 7.2 g/dL 6.4-8.2 [facility] Sodium [Moles/Vol] 135 mmol/L 136-145 [facility] WBC (Bld) [#/Vol] 5.4 10*3/uL 4.4-11.0 [facility] Bilirubin Test strip Ql (U)O rdered By: Jose Parry on 07-16-2022 Bilirubin Ql (U) Negative Negative [facility] Blood erythrocytes count (nu mber/volume)Ordered By: Jose Parry on 07-16-2022 RBC (Bld) [#/Vol] 4.69 10*6/uL 4.2-5.4 [facility] Blood hemoglobin measurement (mass/volume)Ordered By: Jose Parry on 07-16-2022 Hemoglobin (Bld) [Mass/Vol] 14.2 g/dL 12.0-15.0 [facility] Blood lymphocytes/100 leukoc ytesOrdered By: Jose Parry on 07-16-2022 Lymphocytes/100 WBC (Bld) 19.8 % 19-41 [facility] Blood monocytes/100 leukocyt esOrdered By: Jose Parry on 07-16-2022 Monocytes/100 WBC (Bld) 8.6 % 0-10 [facility] Blood platelet mean volumeOr dered By: Jose Parry on 07-16-2022 Platelet mean volume (Bld) [Entitic vol] 10.5 fL 6.2-12.0 [facility] Determination of erythrocyte mean corpuscular volume (MCV)Ordered By: Jose Parry on 07-16-2022 MCV (RBC) [Entitic vol] 96.8 fL 81-99 [facility] Direct bilirubinOrdered By: Jose Parry on 07-16-2022 Bilirubin.direct [Mass/Vol] 0.19 mg/dL 0.00-0.30 [facility] Hematocrit Auto (Bld) [Volum e fraction]Ordered By: Jose Parry on 07-16-2022 Hematocrit (Bld) [Volume fraction] 45.4 % 37-47 [facility] Influenza virus A and B and SARS-CoV-2 (COVID-19) Ag panel - Upper respiratory specimOrdered By: Jose Parry on 07-16-2022 SARS-CoV-2 (COVID-19) RNA MARY+probe Ql (Resp) [facility] Ketones Test strip Ql (U)Ord ered By: Jose Parry on 07-16-2022 Ketones Ql (U) Negative Negative [facility] Laboratory - Chemistry and C hemistry - challengeOrdered By: Jose Parry on 07-16-2022 ALP [Catalytic activity/Vol] 120 U/L 45-117 [facility] ALT [Catalytic activity/Vol] 30 U/L 13-56 [facility] CO2 [Moles/Vol] 23.0 mmol/L 21.0-32.0 [facility] Globulin (S) [Mass/Vol] 3.6 g/dL 2.2-4.2 [facility] Urea nitrogen/Creatinine [Mass ratio] 15.0 mg/mg 10-20 [facility] - Drug toxicology Ordered By: Jose Parry on 07-16-2022 Amphetamines Ql (U) Negative <1000 ng/mL [facility] Benzodiazepines Ql (U) Negative < 200 ng/mL [facility] Cannabinoids Screen Ql (U) Positive < 50 ng/mL [facility] Cocaine Ql (U) Negative < 300 ng/mL [facility] Opiates Ql (U) Negative < 300 ng/mL [facility] Laboratory - Hematology and Cell countsOrdered By: Jose Parry on 07-16-2022 Erythrocyte distribution width (RBC) [Entitic vol] 49.5 fL 35.1-43.9 [facility] Erythrocyte distribution width (RBC) [Ratio] 14.0 % 11.6-14.6 [facility] Immature granulocytes/100 WBC (Bld) 0.200 % 0.0-0.9 [facility] Comment on above: IG% - Immature Granu locytes (promyelocytes, myelocytes and metamyelocytes) > 1% indicates that a LEFT SHIFT is Present. MCH (RBC) [Entitic mass] 30.3 pg 27.0-32.0 [facility] Nucleated RBC/100 WBC (Bld) [Ratio] 0 % 0-5 [facility] MCHC Auto (RBC) [Mass/Vol]Or dered By: Jose Parry on 07-16-2022 MCHC (RBC) [Mass/Vol] 31.3 g/dL 32-36 [facility] Mucus LM Ql (Urine sed)Order ed By: Jose Parry on 07-16-2022 Mucus Ql (Urine sed) 0 SEEN /hpf [facility] Nitrite Test strip Ql (U)Ord ered By: Jose Parry on 07-16-2022 Nitrite Ql (U) Negative Negative [facility] No Panel InformationOrdered By: Jose Parry on 07-16-2022 MDMA (Ecstasy) Screen Negative < 500 ng/mL [facility] Urine Barbiturates Screen Negative < 200 ng/mL [facility] Urine Drug Screen Comment [facility] Comment on above: CONFIRMATORY TESTING FOR ALL POSITIVE URINE DRUG SCREENRESULTS WILL ONLY BE SENT OUT UPON PHYSICIAN ORDER. VISTA Urine Drug Screen methods provide only preliminaryanalytical test results. A more specific alternate chemicalmethod must be used in order to obtain a confirmedanalytical result. Gas chromatography/mass spectrometery(GC/MS) is the preferred confirmatory method. Clinicalconsideration and professional judgement should be appliedto any drug of abuse test result, particularly whenpreliminary positive results are used. URINE TCA TESTING MUST BE ORDERED SEPARATELY. USE TESTMNEMONIC: [facility] Urine Methadone Screen Negative < 300 ng/mL [facility] Estimated Creatinine Clearance Calc 72.72 ml/min [facility] Estimated GFR (MDRD) Amer 94 mL/min >60 [facility] Comment on above: GFR Calc Estimated GFR (MDRD) Non-Af Amer 78 mL/min >60 [facility] Comment on above: Non- GFR Calc Ethyl Alcohol Level 119.0 mg/dL [facility] Comment on above: The serum:whole bloo d ethanol ratio is approximately 1.14and varies slightly with hematocrit. Medical Alcohol reference interval and critical value innon-tolerant individuals; 50 - 100 Impairment 100 Intoxication 100 - 250 Severe Poisoning 250 - 400 Deep/possible fatal coma Platelets bldOrdered By: Autumn Parry on 07-16-2022 Platelets (Bld) [#/Vol] 211 10*3/uL 150-450 [facility] Protein Test strip Ql (U)Ord ered By: Jose Parry on 07-16-2022 Protein Ql (U) 500 mg/dl Negative [facility] Serum or plasma albumin marisela urement (mass/volume)Ordered By: Jose Parry on 07-16-2022 Albumin [Mass/Vol] 3.6 g/dL 3.2-5.0 [facility] Serum or plasma calcium marisela urement (mass/volume)Ordered By: Jose Parry on 07-16-2022 Calcium [Mass/Vol] 9.2 mg/dL 8.5-10.1 [facility] Serum or plasma creatinine m easurement (mass/volume)Ordered By: Jose Parry on 07-16-2022 Creatinine [Mass/Vol] 0.80 mg/dL 0.55-1.02 [facility] Comment on above: The validity of the calculated GFR & GFRAA in patients over 70 years has not been determined. Clinical correlation is essential. Serum or plasma urea nitroge n measurement (mass/volume)Ordered By: Jose Parry on 07-16-2022 Urea nitrogen [Mass/Vol] 12 mg/dL 7-18 [facility] Squamous epithelial cells de tection in urine sediment by light microscopyOrdered By: Jose Parry on 07-16-2022 Epithelial cells.squamous LM Ql (Urine sed) 0-5 SEEN /hpf 5-10 [facility] Thin prep Papanicolaou smear with manual screeningOrdered By: Jose Parry on 07-16-2022 Thin prep Papanicolaou smear with manual screening 46 U/L 15-37 [facility] Thin prep Papanicolaou smear with manual screening 11 5-15 [facility] Urine blood detectionOrdered By: Jose Parry on 07-16-2022 RBC Ql (U) 50 /ul Negative [facility] RBC Ql (U) 0-5 SEEN /hpf 0-5 [facility] Urine clarityOrdered By: Autumn Parry on 07-16-2022 Clarity (U) Clear Clear [facility] Urine color determinationOrd ered By: Jose Parry on 07-16-2022 Color (U) Yellow Yellow [facility] Urine glucose detectionOrder ed By: Jose Parry on 07-16-2022 Glucose Ql (U) Normal mg/dl Normal [facility] Urine leukocyte esterase det ection by dipstickOrdered By: Jose Parry on 07-16-2022 Leukocyte esterase Test strip Ql (U) 25 /ul Negative [facility] Urine pHOrdered By: Jose fernández on 07-16-2022 pH (U) 6.5 [pH] 5.0 - 8.0 [facility] Urine phencyclidine (PCP) de tectionOrdered By: Jose Parry on 07-16-2022 Phencyclidine Ql (U) Negative < 25 ng/mL [facility] Urine sediment bacteria coun t by microscopy (number/high power field)Ordered By: Jose Parry on 07-16-2022 Bacteria LM.HPF (Urine sed) [#/Area] 0 /[HPF] None Seen [facility] Urine specific gravity measu rementOrdered By: Jose Parry on 07-16-2022 Specific gravity (U) [Rel density] 1.015 1.002-1.030 [facility] Urobilinogen Auto test strip Ql (U)Ordered By: Jose Parry on 07-16-2022 Urobilinogen Ql (U) 1 mg/dl Normal [facility] Urinalysis macro (dipstick) panel (U)on 06-07-2022 Bilirubin, UA Negative [facility] Blood, UA Negative [facility] Glucose, UA Negative [facility] Ketones, UA Negative [facility] Leukocytes, UA Negative [facility] Nitrite, UA Negative [facility] pH, UA 7.0 [facility] Protein, UA >300 [facility] Spec Grav, UA 1.020 [facility] Urobilinogen, UA 0.2 [facility] Culture, urineOrdered By: Dr Layo Gordillo on 03-17-2022 Bacteria identified Cx Nom (U) Positive [facility] Absolute lymphocyte countOrd ered By: Dr. Gordillo on 03-15-2022 Lymphocytes Auto (Unsp spec) [#/Vol] 0.73 10*3/uL 0.83-4.51 [facility] Basophil percentageOrdered B y: Dr. Gordillo on 03-15-2022 Basophil percentage 25-50 SEEN /hpf 0-5 [facility] Basophils/100 WBC (Bld) 0.5 % 0-1 [facility] Bilirubin [Mass/Vol] 1.80 mg/dL 0.20-1.00 [facility] Comment on above: For patients on eltr ombopag therapy, use of [employer] TBIL is not recommended. Chloride [Moles/Vol] 108 mmol/L 98-107 [facility] Eosinophils/100 WBC (Bld) 1.0 % 0-5 [facility] Glucose [Mass/Vol] 85 mg/dL 74-106 [facility] Neutrophils (Bld) [#/Vol] 3.0 10*3/uL 2.0-7.7 [facility] Neutrophils/100 WBC (Bld) 74.9 % 47-70 [facility] Potassium [Moles/Vol] 3.6 mmol/L 3.5-5.1 [facility] Protein [Mass/Vol] 6.4 g/dL 6.4-8.2 [facility] Sodium [Moles/Vol] 144 mmol/L 136-145 [facility] WBC (Bld) [#/Vol] 4.0 10*3/uL 4.4-11.0 [facility] Bilirubin Test strip Ql (U)O rdered By: Dr. Gordillo on 03-15-2022 Bilirubin Ql (U) 1 mg/dL Negative [facility] Comment on above: COLOR OF URINE MAY A FFECT DIPSTICK RESULTS. Blood erythrocytes count (nu mber/volume)Ordered By: Dr. Gordillo on 03-15-2022 RBC (Bld) [#/Vol] 4.77 10*6/uL 4.2-5.4 [facility] Blood hemoglobin measurement (mass/volume)Ordered By: Dr. Gordillo on 03-15-2022 Hemoglobin (Bld) [Mass/Vol] 13.0 g/dL 12.0-15.0 [facility] Blood lymphocytes/100 leukoc ytesOrdered By: Dr. Gordillo on 03-15-2022 Lymphocytes/100 WBC (Bld) 18.3 % 19-41 [facility] Blood monocytes/100 leukocyt esOrdered By: Dr. Gordillo on 03-15-2022 Monocytes/100 WBC (Bld) 5.0 % 0-10 [facility] Blood platelet mean volumeOr dered By: Dr. Gordillo on 03-15-2022 Platelet mean volume (Bld) [Entitic vol] 10.1 fL 6.2-12.0 [facility] Determination of erythrocyte mean corpuscular volume (MCV)Ordered By: Dr. Gordillo on 03-15-2022 MCV (RBC) [Entitic vol] 90.4 fL 81-99 [facility] Hematocrit Auto (Bld) [Volum e fraction]Ordered By: Dr. Gordillo on 03-15-2022 Hematocrit (Bld) [Volume fraction] 43.1 % 37-47 [facility] Hyaline casts LM.LPF (Urine sed) [#/Area]Ordered By: Dr. Gordillo on 03-15-2022 Hyaline casts (Urine sed) [#/Area] 0 /[LPF] 0-5 [facility] Ketones Test strip Ql (U)Ord ered By: Dr. Gordillo on 03-15-2022 Ketones Ql (U) 5 mg/dl Negative [facility] Laboratory - Chemistry and C hemistry - challengeOrdered By: Dr. Gordillo on 03-15-2022 ALP [Catalytic activity/Vol] 133 U/L 45-117 [facility] ALT [Catalytic activity/Vol] 24 U/L 13-56 [facility] CO2 [Moles/Vol] 32.0 mmol/L 21.0-32.0 [facility] Globulin (S) [Mass/Vol] 2.8 g/dL 2.2-4.2 [facility] Urea nitrogen/Creatinine [Mass ratio] 10.4 mg/mg 10-20 [facility] Laboratory - Drug toxicology Ordered By: Dr. Gordillo on 03-15-2022 Amphetamines Ql (U) Negative <1000 ng/mL [facility] Benzodiazepines Ql (U) Negative < 200 ng/mL [facility] Cannabinoids Screen Ql (U) Positive < 50 ng/mL [facility] Cocaine Ql (U) Negative < 300 ng/mL [facility] Opiates Ql (U) Negative < 300 ng/mL [facility] Laboratory - Hematology and Cell countsOrdered By: Dr. Gordillo on 03-15-2022 Erythrocyte distribution width (RBC) [Entitic vol] 47.4 fL 35.1-43.9 [facility] Erythrocyte distribution width (RBC) [Ratio] 14.4 % 11.6-14.6 [facility] Immature granulocytes/100 WBC (Bld) 0.300 % 0.0-0.9 [facility] Comment on above: IG% - Immature Granu locytes (promyelocytes, myelocytes and metamyelocytes) > 1% indicates that a LEFT SHIFT is Present. MCH (RBC) [Entitic mass] 27.3 pg 27.0-32.0 [facility] Nucleated RBC/100 WBC (Bld) [Ratio] 0 % 0-5 [facility] MCHC Auto (RBC) [Mass/Vol]Or dered By: Dr. Gordillo on 03-15-2022 MCHC (RBC) [Mass/Vol] 30.2 g/dL 32-36 [facility] Mucus LM Ql (Urine sed)Order ed By: Dr. Gordillo on 03-15-2022 Mucus Ql (Urine sed) 2+ /hpf [facility] Nitrite Test strip Ql (U)Ord ered By: Dr. Gordillo on 03-15-2022 Nitrite Ql (U) Negative Negative [facility] No Panel InformationOrdered By: Dr. Gordillo on 03-15-2022 MDMA (Ecstasy) Screen Positive < 500 ng/mL [facility] Urine Barbiturates Screen Negative < 200 ng/mL [facility] Urine Drug Screen Comment [facility] Comment on above: CONFIRMATORY TESTING FOR ALL POSITIVE URINE DRUG SCREENRESULTS WILL ONLY BE SENT OUT UPON PHYSICIAN ORDER. VISTA Urine Drug Screen methods provide only preliminaryanalytical test results. A more specific alternate chemicalmethod must be used in order to obtain a confirmedanalytical result. Gas chromatography/mass spectrometery(GC/MS) is the preferred confirmatory method. Clinicalconsideration and professional judgement should be appliedto any drug of abuse test result, particularly whenpreliminary positive results are used. URINE TCA TESTING MUST BE ORDERED SEPARATELY. USE TESTMNEMONIC: [facility] Urine Methadone Screen Negative < 300 ng/mL [facility] Estimated Creatinine Clearance Calc 43.09 ml/min [facility] Estimated GFR (MDRD) Amer 51 mL/min >60 [facility] Comment on above: GFR Calc Estimated GFR (MDRD) Non-Af Amer 43 mL/min >60 [facility] Comment on above: Non- GFR Calc Ethyl Alcohol Level 5.0 mg/dL [facility] Comment on above: The serum:whole bloo d ethanol ratio is approximately 1.14and varies slightly with hematocrit. Medical Alcohol reference interval and critical value innon-tolerant individuals; 50 - 100 Impairment 100 Intoxication 100 - 250 Severe Poisoning 250 - 400 Deep/possible fatal coma Platelets bldOrdered By: Dr. Gordillo on 03-15-2022 Platelets (Bld) [#/Vol] 131 10*3/uL 150-450 [facility] Protein Test strip Ql (U)Ord ered By: Dr. Gordillo on 03-15-2022 Protein Ql (U) 30 mg/dl Negative [facility] Serum or plasma albumin marisela urement (mass/volume)Ordered By: Dr. Gordillo on 03-15-2022 Albumin [Mass/Vol] 3.6 g/dL 3.2-5.0 [facility] Serum or plasma albumin/glob ulin mass ratioOrdered By: Dr. Gordillo on 03-15-2022 Albumin/Globulin [Mass ratio] 1.3 {ratio} 0.9-2.4 [facility] Serum or plasma calcium marisela urement (mass/volume)Ordered By: Dr. Gordillo on 03-15-2022 Calcium [Mass/Vol] 9.5 mg/dL 8.5-10.1 [facility] Serum or plasma creatinine m easurement (mass/volume)Ordered By: Dr. Gordillo on 03-15-2022 Creatinine [Mass/Vol] 1.35 mg/dL 0.55-1.02 [facility] Comment on above: The validity of the calculated GFR & GFRAA in patients over 70 years has not been determined. Clinical correlation is essential. Serum or plasma urea nitroge n measurement (mass/volume)Ordered By: Dr. Gordillo on 03-15-2022 Urea nitrogen [Mass/Vol] 14 mg/dL 7-18 [facility] Squamous epithelial cells de tection in urine sediment by light microscopyOrdered By: Dr. Gordillo on 03-15-2022 Epithelial cells.squamous LM Ql (Urine sed) 0-5 SEEN /hpf 5-10 [facility] Thin prep Papanicolaou smear with manual screeningOrdered By: Dr. Gordillo on 03-15-2022 Thin prep Papanicolaou smear with manual screening 30 U/L 15-37 [facility] Thin prep Papanicolaou smear with manual screening 4 5-15 [facility] Urine blood detectionOrdered By: Dr. Gordillo on 03-15-2022 RBC Ql (U) Negative Negative [facility] RBC Ql (U) 0 SEEN /hpf 0-5 [facility] Urine clarityOrdered By: Dr. Gordillo on 03-15-2022 Clarity (U) Sl. Cloudy Clear [facility] Urine color determinationOrd ered By: Dr. Gordillo on 03-15-2022 Color (U) Yellow Yellow [facility] Urine glucose detectionOrder ed By: Dr. Gordillo on 03-15-2022 Glucose Ql (U) Normal mg/dl Normal [facility] Urine leukocyte esterase det ection by dipstickOrdered By: Dr. Gordillo on 03-15-2022 Leukocyte esterase Test strip Ql (U) 500 /ul Negative [facility] Urine pHOrdered By: Dr. Josué lock on 03-15-2022 pH (U) 7.0 [pH] 5.0 - 8.0 [facility] Urine phencyclidine (PCP) de tectionOrdered By: Dr. Gordillo on 03-15-2022 Phencyclidine Ql (U) Negative < 25 ng/mL [facility] Urine sediment bacteria coun t by microscopy (number/high power field)Ordered By: Dr. Gordillo on 03-15-2022 Bacteria LM.HPF (Urine sed) [#/Area] 1 /[HPF] None Seen [facility] Urine specific gravity measu rementOrdered By: Dr. Gordillo on 03-15-2022 Specific gravity (U) [Rel density] 1.015 1.002-1.030 [facility] Urobilinogen Auto test strip Ql (U)Ordered By: Dr. Gordillo on 03-15-2022 Urobilinogen Ql (U) 1 mg/dl Normal [facility] Basophil percentageon 2021 Chloride [Moles/Vol] 113 mmol/L 98-107 [facility] Work Phone: Glucose [Mass/Vol] 104 mg/dL 74-106 [facility] Work Phone: Comment on above: Fasting Glucose resu lt from 100 to 125 mg/dL suggests IMPAIRED HOMEOSTASIS per A.D.A. criteria. Potassium [Moles/Vol] 3.3 mmol/L 3.5-5.1 [facility] Work Phone: Sodium [Moles/Vol] 141 mmol/L 136-145 [facility] Work Phone: Iron measurement (mass/mass) on 12-31-2021 Iron (Unsp spec) [Mass/Mass] 61 ug/dL 50-170 [facility] Work Phone: Laboratory - Chemistry and C hemistry - challengeon 12-31-2021 CO2 [Moles/Vol] 26.0 mmol/L 21.0-32.0 [facility] Work Phone: Urea nitrogen/Creatinine [Mass ratio] 7.3 mg/mg 10-20 [facility] Work Phone: No Panel Informationon 12-31 Estimated Creatinine Clearance Calc 48.67 ml/min [facility] Work Phone: Estimated GFR (MDRD) Amer 57 mL/min >60 [facility] Work Phone: Comment on above: GFR Calc Estimated GFR (MDRD) Non-Af Amer 47 mL/min >60 [facility] Work Phone: Comment on above: Non- GFR Calc Total Iron Binding Capacity 222 ug/dL 250-450 [facility] Work Phone: Serum or plasma calcium marisela urement (mass/volume)on 12-31-2021 Calcium [Mass/Vol] 8.5 mg/dL 8.5-10.1 [facility] Work Phone: Serum or plasma creatinine m easurement (mass/volume)on 12-31-2021 Creatinine [Mass/Vol] 1.24 mg/dL 0.55-1.02 [facility] Work Phone: Comment on above: The validity of the calculated GFR & GFRAA in patients over 70 years has not been determined. Clinical correlation is essential. Serum or plasma iron saturat ion measurement (mass fraction)on 12-31-2021 Iron saturation [Mass fraction] 27.5 % 15.0-55.0 [facility] Work Phone: Serum or plasma urea nitroge n measurement (mass/volume)on 12-31-2021 Urea nitrogen [Mass/Vol] 9 mg/dL 7-18 [facility] Work Phone: Thin prep Papanicolaou smear with manual screeningon 12-31-2021 Thin prep Papanicolaou smear with manual screening 2 5-15 [facility] Work Phone: Absolute lymphocyte counton 12-30-2021 Lymphocytes Auto (Unsp spec) [#/Vol] 0.79 10*3/uL 0.83-4.51 [facility] Work Phone: Basophil percentageon 2021 Basophils/100 WBC (Bld) 0.3 % 0-1 [facility] Work Phone: Bilirubin [Mass/Vol] 1.40 mg/dL 0.20-1.00 [facility] Work Phone: Comment on above: For patients on eltr ombopag therapy, use of [employer] [place] TBIL is not recommended. Eosinophils/100 WBC (Bld) 1.3 % 0-5 [facility] Work Phone: Neutrophils (Bld) [#/Vol] 2.1 10*3/uL 2.0-7.7 [facility] Work Phone: Neutrophils/100 WBC (Bld) 67.0 % 47-70 [facility] Work Phone: Protein [Mass/Vol] 5.0 g/dL 6.4-8.2 [facility] Work Phone: WBC (Bld) [#/Vol] 3.2 10*3/uL 4.4-11.0 [facility] Work Phone: Blood erythrocytes count (nu mber/volume)on 12-30-2021 RBC (Bld) [#/Vol] 4.02 10*6/uL 4.2-5.4 [facility] Work Phone: Blood hemoglobin measurement (mass/volume)on 12-30-2021 Hemoglobin (Bld) [Mass/Vol] 10.7 g/dL 12.0-15.0 [facility] Work Phone: Blood lymphocytes/100 leukoc yteson 12-30-2021 Lymphocytes/100 WBC (Bld) 24.8 % 19-41 [facility] Work Phone: Blood monocytes/100 leukocyt eson 12-30-2021 Monocytes/100 WBC (Bld) 6.3 % 0-10 [facility] Work Phone: Blood platelet mean volumeon 12-30-2021 Platelet mean volume (Bld) [Entitic vol] 10.2 fL 6.2-12.0 [facility] Work Phone: Determination of erythrocyte mean corpuscular volume (MCV)on 12-30-2021 MCV (RBC) [Entitic vol] 84.1 fL 81-99 [facility] Work Phone: [phone] Hematocrit Auto (Bld) [Volum e fraction]on 12-30-2021 Hematocrit (Bld) [Volume fraction] 33.8 % 37-47 [facility] Work Phone: Laboratory - Chemistry and C hemistry - challengeon 12-30-2021 ALP [Catalytic activity/Vol] 155 U/L 45-117 [facility] Work Phone: ALT [Catalytic activity/Vol] 17 U/L 13-56 [facility] Work Phone: Globulin (S) [Mass/Vol] 2.4 g/dL 2.2-4.2 [facility] Work Phone: Laboratory - Hematology and Cell countson 12-30-2021 Erythrocyte distribution width (RBC) [Entitic vol] 43.9 fL 35.1-43.9 [facility] Work Phone: Erythrocyte distribution width (RBC) [Ratio] 14.4 % 11.6-14.6 [facility] Work Phone: Immature granulocytes/100 WBC (Bld) 0.300 % 0.0-0.9 [facility] Work Phone: Comment on above: IG% - Immature Granu locytes (promyelocytes, myelocytes and metamyelocytes) > 1% indicates that a LEFT SHIFT is Present. MCH (RBC) [Entitic mass] 26.6 pg 27.0-32.0 [facility] Work Phone: Nucleated RBC/100 WBC (Bld) [Ratio] 0 % 0-5 [facility] Work Phone: MCHC Auto (RBC) [Mass/Vol]on 12-30-2021 MCHC (RBC) [Mass/Vol] 31.7 g/dL 32-36 [facility] Work Phone: Platelets bldon 12-30-2021 Platelets (Bld) [#/Vol] 89 10*3/uL 150-450 [facility] Work Phone: Serum or plasma albumin marisela urement (mass/volume)on 12-30-2021 Albumin [Mass/Vol] 2.6 g/dL 3.2-5.0 [facility] Work Phone: Serum or plasma albumin/glob ulin mass ratioon 12-30-2021 Albumin/Globulin [Mass ratio] 1.1 {ratio} 0.9-2.4 [facility] Work Phone: Thin prep Papanicolaou smear with manual screeningon 12-30-2021 Thin prep Papanicolaou smear with manual screening 21 U/L 15-37 [facility] Work Phone: Basophil percentageon 2021 Basophil percentage 25-50 SEEN /hpf 0-5 [facility] Work Phone: Basophil percentage 3.3 mg/dL 2.5-4.9 [facility] Work Phone: Ammonia (P) [Moles/Vol] 19.0 umol/L 11-32 [facility] Work Phone: Bilirubin Test strip Ql (U)o n 12-29-2021 Bilirubin Ql (U) Negative Negative [facility] Work Phone: Direct bilirubinon 2 Bilirubin.direct [Mass/Vol] 0.56 mg/dL 0.00-0.30 [facility] Work Phone: INR in Blood by Coagulation assayon 12-29-2021 INR Coag (Bld) [Relative time] 1.1 {INR} [facility] Work Phone: Ketones Test strip Ql (U)on 12-29-2021 Ketones Ql (U) Negative Negative [facility] Work Phone: Laboratory - Chemistry and C hemistry - challengeon 12-29-2021 Magnesium [Mass/Vol] 2.7 mg/dL 1.6-2.6 [facility] Work Phone: Laboratory - Coagulationon 0 12-29-2021 PT Coag (PPP) [Time] 13.8 s 11.7-14.9 [facility] Work Phone: Laboratory - Drug toxicology on 12-29-2021 Amphetamines Ql (U) Negative <1000 ng/mL [facility] Work Phone: Benzodiazepines Ql (U) Negative < 200 ng/mL [facility] Work Phone: Cannabinoids Screen Ql (U) Negative < 50 ng/mL [facility] Work Phone: Cocaine Ql (U) Negative < 300 ng/mL [facility] Work Phone: Opiates Ql (U) Negative < 300 ng/mL [facility] Work Phone: Mucus LM Ql (Urine sed)on Mucus Ql (Urine sed) 0 SEEN /hpf [facility] Work Phone: Nitrite Test strip Ql (U)on 12-29-2021 Nitrite Ql (U) Negative Negative [facility] Work Phone: No Panel Informationon 12-29 MDMA (Ecstasy) Screen Negative < 500 ng/mL [facility] Work Phone: Urine Barbiturates Screen Negative < 200 ng/mL [facility] Work Phone: Urine Drug Screen Comment [facility] Work Phone: Comment on above: CONFIRMATORY TESTING FOR ALL POSITIVE URINE DRUG SCREENRESULTS WILL ONLY BE SENT OUT UPON PHYSICIAN ORDER. [facility]ISTA Urine Drug Screen methods provide only preliminaryanalytical test results. A more specific alternate chemicalmethod must be used in order to obtain a confirmedanalytical result. Gas chromatography/mass spectrometery(GC/MS) is the preferred confirmatory method. Clinicalconsideration and professional judgement should be appliedto any drug of abuse test result, particularly whenpreliminary positive results are used. URINE TCA TESTING MUST BE ORDERED SEPARATELY. USE TESTMNEMONIC: [facility] Urine Methadone Screen Negative < 300 ng/mL [facility] Work Phone: Ethyl Alcohol Level 4.0 mg/dL [facility] Work Phone: Comment on above: The serum:whole bloo d ethanol ratio is approximately 1.14and varies slightly with hematocrit. Medical Alcohol reference interval and critical value innon-tolerant individuals; 50 - 100 Impairment 100 Intoxication 100 - 250 Severe Poisoning 250 - 400 Deep/possible fatal coma Thyroid Stimulating Hormone (TSH) 1.10 uIU/mL 0.358-3.74 [facility] Work Phone: Protein Test strip Ql (U)on 12-29-2021 Protein Ql (U) 30 mg/dl Negative [facility] Work Phone: Squamous epithelial cells de tection in urine sediment by light microscopyon 12-29-2021 Epithelial cells.squamous LM Ql (Urine sed) 0-5 SEEN /hpf 5-10 [facility] Work Phone: Urine blood detectionon 12-03 RBC Ql (U) 25 /ul Negative [facility] Work Phone: RBC Ql (U) 0 SEEN /hpf 0-5 [facility] Work Phone: Urine clarityon 12-29-2021 Clarity (U) Clear Clear [facility] Work Phone: Urine color determinationon 12-29-2021 Color (U) Yellow Yellow [facility] Work Phone: Urine glucose detectionon Glucose Ql (U) Normal mg/dl Normal [facility] Work Phone: Urine leukocyte esterase det ection by dipstickon 12-29-2021 Leukocyte esterase Test strip Ql (U) 500 /ul Negative [facility] Work Phone: [phone] Urine pHon 12-29-2021 pH (U) 7.0 [pH] 5.0 - 8.0 [facility] Work Phone: Urine phencyclidine (PCP) de tectionon 12-29-2021 Phencyclidine Ql (U) Negative < 25 ng/mL [facility] Work Phone: Urine sediment bacteria coun t by microscopy (number/high power field)on 12-29-2021 Bacteria LM.HPF (Urine sed) [#/Area] RARE /hpf None Seen [facility] Work Phone: Urine specific gravity measu rementon 12-29-2021 Specific gravity (U) [Rel density] 1.005 1.002-1.030 [facility] Work Phone: Urobilinogen Auto test strip Ql (U)on 12-29-2021 Urobilinogen Ql (U) Normal mg/dl Normal [facility] Work Phone: Absolute lymphocyte counton 08-03-2021 Lymphocytes Auto (Unsp spec) [#/Vol] 0.95 10*3/uL 0.83-4.51 [facility] Work Phone: Basophil percentageon 2021 Basophils/100 WBC (Bld) 0.2 % 0-1 [facility] Work Phone: Chloride [Moles/Vol] 104 mmol/L 98-107 [facility] Work Phone: Eosinophils/100 WBC (Bld) 0.8 % 0-5 [facility] Work Phone: Glucose [Mass/Vol] 124 mg/dL 74-106 [facility] Work Phone: Comment on above: Fasting Glucose resu lt from 100 to 125 mg/dL suggests IMPAIRED HOMEOSTASIS per A.D.A. criteria. Neutrophils (Bld) [#/Vol] 3.5 10*3/uL 2.0-7.7 [facility] Work Phone: Neutrophils/100 WBC (Bld) 73.4 % 47-70 [facility] Work Phone: Potassium [Moles/Vol] 4.4 mmol/L 3.5-5.1 [facility] Work Phone: Sodium [Moles/Vol] 139 mmol/L 136-145 [facility] Work Phone: WBC (Bld) [#/Vol] 4.7 10*3/uL 4.4-11.0 [facility] Work Phone: Blood erythrocytes count (nu mber/volume)on 08-03-2021 RBC (Bld) [#/Vol] 4.12 10*6/uL 4.2-5.4 [facility] Work Phone: Blood hemoglobin measurement (mass/volume)on 08-03-2021 Hemoglobin (Bld) [Mass/Vol] 11.4 g/dL 12.0-15.0 [facility] Work Phone: Blood lymphocytes/100 leukoc yteson 08-03-2021 Lymphocytes/100 WBC (Bld) 20.1 % 19-41 [facility] Work Phone: Blood monocytes/100 leukocyt eson 08-03-2021 Monocytes/100 WBC (Bld) 5.1 % 0-10 [facility] Work Phone: Blood platelet mean volumeon 08-03-2021 Platelet mean volume (Bld) [Entitic vol] 9.9 fL 6.2-12.0 [facility] Work Phone: Determination of erythrocyte mean corpuscular volume (MCV)on 08-03-2021 MCV (RBC) [Entitic vol] 90.3 fL 81-99 [facility] Work Phone: Hematocrit Auto (Bld) [Volum e fraction]on 08-03-2021 Hematocrit (Bld) [Volume fraction] 37.2 % 37-47 [facility] Work Phone: Laboratory - Chemistry and C hemistry - challengeon 08-03-2021 CO2 [Moles/Vol] 31.0 mmol/L 21.0-32.0 [facility] Work Phone: Urea nitrogen/Creatinine [Mass ratio] 12.7 mg/mg 10-20 [facility] Work Phone: Laboratory - Hematology and Cell countson 08-03-2021 Erythrocyte distribution width (RBC) [Entitic vol] 48.8 fL 35.1-43.9 [facility] Work Phone: Erythrocyte distribution width (RBC) [Ratio] 15.0 % 11.6-14.6 [facility] Work Phone: Immature granulocytes/100 WBC (Bld) 0.400 % 0.0-0.9 [facility] Work Phone: Comment on above: IG% - Immature Granu locytes (promyelocytes, myelocytes and metamyelocytes) > 1% indicates that a LEFT SHIFT is Present. MCH (RBC) [Entitic mass] 27.7 pg 27.0-32.0 [facility] Work Phone: Nucleated RBC/100 WBC (Bld) [Ratio] 0 % 0-5 [facility] Work Phone: MCHC Auto (RBC) [Mass/Vol]on 08-03-2021 MCHC (RBC) [Mass/Vol] 30.6 g/dL 32-36 [facility] Work Phone: No Panel Informationon 08-03 Estimated Creatinine Clearance Calc 49.92 ml/min [facility] Work Phone: Estimated GFR (MDRD) Amer 60 mL/min >60 [facility] Work Phone: Comment on above: GFR Calc Estimated GFR (MDRD) Non-Af Amer 50 mL/min >60 [facility] Work Phone: Comment on above: Non- GFR Calc Platelets bldon 08-03-2021 Platelets (Bld) [#/Vol] 195 10*3/uL 150-450 [facility] Work Phone: Serum or plasma calcium marisela urement (mass/volume)on 08-03-2021 Calcium [Mass/Vol] 9.4 mg/dL 8.5-10.1 [facility] Work Phone: Serum or plasma creatinine m easurement (mass/volume)on 08-03-2021 Creatinine [Mass/Vol] 1.18 mg/dL 0.55-1.02 [facility] Work Phone: Comment on above: The validity of the calculated GFR & GFRAA in patients over 70 years has not been determined. Clinical correlation is essential. Serum or plasma urea nitroge n measurement (mass/volume)on 08-03-2021 Urea nitrogen [Mass/Vol] 15 mg/dL 7-18 [facility] Work Phone: Thin prep Papanicolaou smear with manual screeningon 08-03-2021 Thin prep Papanicolaou smear with manual screening 4 5-15 [facility] Work Phone: Absolute lymphocyte counton 07-22-2021 Lymphocytes Auto (Unsp spec) [#/Vol] 0.49 10*3/uL 0.83-4.51 [facility] Work Phone: Basophil percentageon 2021 Basophils/100 WBC (Bld) 0.3 % 0-1 [facility] Work Phone: Chloride [Moles/Vol] 106 mmol/L 98-107 [facility] Work Phone: Eosinophils/100 WBC (Bld) 0.6 % 0-5 [facility] Work Phone: Glucose [Mass/Vol] 131 mg/dL 74-106 [facility] Work Phone: Comment on above: Fasting Glucose resu lt greater than or equal to 126 mg/dL suggests DIABETES MELLITUS per A.D.A. criteria. Neutrophils (Bld) [#/Vol] 2.6 10*3/uL 2.0-7.7 [facility] Work Phone: Neutrophils/100 WBC (Bld) 76.0 % 47-70 [facility] Work Phone: [phone] Potassium [Moles/Vol] 3.2 mmol/L 3.5-5.1 [facility] Work Phone: Sodium [Moles/Vol] 139 mmol/L 136-145 [facility] Work Phone: WBC (Bld) [#/Vol] 3.4 10*3/uL 4.4-11.0 [facility] Work Phone: [phone] Blood erythrocytes count (nu mber/volume)on 07-22-2021 RBC (Bld) [#/Vol] 3.66 10*6/uL 4.2-5.4 [facility] Work Phone: Blood hemoglobin measurement (mass/volume)on 07-22-2021 Hemoglobin (Bld) [Mass/Vol] 10.0 g/dL 12.0-15.0 [facility] Work Phone: Blood lymphocytes/100 leukoc yteson 07-22-2021 Lymphocytes/100 WBC (Bld) 14.3 % 19-41 [facility] Work Phone: Blood manual differential co mment interpretation (narrative result)on 07-22-2021 Manual differential comment [place] (Bld) [Interp] SCANNED [facility] Work Phone: Blood monocytes/100 leukocyt eson 07-22-2021 Monocytes/100 WBC (Bld) 8.5 % 0-10 [facility] Work Phone: Blood platelet mean volumeon 07-22-2021 Platelet mean volume (Bld) [Entitic vol] 9.6 fL 6.2-12.0 [facility] Work Phone: Determination of erythrocyte mean corpuscular volume (MCV)on 07-22-2021 MCV (RBC) [Entitic vol] 85.2 fL 81-99 [facility] Work Phone: Hematocrit Auto (Bld) [Volum e fraction]on 07-22-2021 Hematocrit (Bld) [Volume fraction] 31.2 % 37-47 [facility] Work Phone: Laboratory - Chemistry and C hemistry - challengeon 07-22-2021 CO2 [Moles/Vol] 29.0 mmol/L 21.0-32.0 [facility] Work Phone: Urea nitrogen/Creatinine [Mass ratio] 7.7 mg/mg 10-20 [facility] Work Phone: Laboratory - Hematology and Cell countson 07-22-2021 Erythrocyte distribution width (RBC) [Entitic vol] 43.5 fL 35.1-43.9 [facility] Work Phone: Erythrocyte distribution width (RBC) [Ratio] 14.1 % 11.6-14.6 [facility] Work Phone: Immature granulocytes/100 WBC (Bld) 0.300 % 0.0-0.9 [facility] Work Phone: Comment on above: IG% - Immature Granu locytes (promyelocytes, myelocytes and metamyelocytes) > 1% indicates that a LEFT SHIFT is Present. MCH (RBC) [Entitic mass] 27.3 pg 27.0-32.0 [facility] Work Phone: Nucleated RBC/100 WBC (Bld) [Ratio] 0 % 0-5 [facility] Work Phone: MCHC Auto (RBC) [Mass/Vol]on 07-22-2021 MCHC (RBC) [Mass/Vol] 32.1 g/dL 32-36 [facility] Work Phone: No Panel Informationon 07-22 SARS-CoV-2 Antigen (Rapid) [facility] Work Phone: Estimated Creatinine Clearance Calc 64.73 ml/min [facility] Work Phone: Estimated GFR (MDRD) Amer 82 mL/min >60 [facility] Work Phone: Comment on above: GFR Calc Estimated GFR (MDRD) Non-Af Amer 67 mL/min >60 [facility] Work Phone: Comment on above: Non- GFR Calc Ovalocyte detectionon 2021 Ovalocytes LM Ql (Bld) RARE [facility] Work Phone: Platelets bldon 07-22-2021 Platelets (Bld) [#/Vol] 146 10*3/uL 150-450 [facility] Work Phone: Review by pathologiston 07-05 Pathologist review [place] (Unsp spec) [Interp] Reviewed [facility] Work Phone: Comment on above: Previous reported re sult: Helena jonas Edited by: MERON on 07/25/21:1241Leukopenia and Normocytic anemia.Clinical correlation necessary.Jose Palacios M.D. 07/25/21 AMENDED REPORT 07/25/21 1241 PATH REV previously reported as: Helena jonas Serum or plasma calcium marisela urement (mass/volume)on 07-22-2021 Calcium [Mass/Vol] 8.8 mg/dL 8.5-10.1 [facility] Work Phone: Serum or plasma creatinine m easurement (mass/volume)on 07-22-2021 Creatinine [Mass/Vol] 0.91 mg/dL 0.55-1.02 [facility] Work Phone: Comment on above: The validity of the calculated GFR & GFRAA in patients over 70 years has not been determined. Clinical correlation is essential. Serum or plasma urea nitroge n measurement (mass/volume)on 07-22-2021 Urea nitrogen [Mass/Vol] 7 mg/dL 7- [facility] Work Phone: Thin prep Papanicolaou smear with manual screeningon 07-22-2021 Thin prep Papanicolaou smear with manual screening 4 - [facility] Work Phone: Basophil percentageon 2021 Bilirubin [Mass/Vol] 1.40 mg/dL 0.20-1.00 [facility] Work Phone: Comment on above: For patients on eltr ombopag therapy, use of Dimension [place] TBIL is not recommended. Protein [Mass/Vol] 5.5 g/dL 6.4-8.2 [facility] Work Phone: Direct bilirubinon 2 Bilirubin.direct [Mass/Vol] 0.51 mg/dL 0.00-0.30 [facility] Work Phone: INR in Blood by Coagulation assayon 07-19-2021 INR Coag (Bld) [Relative time] 1.0 {INR} [facility] Work Phone: Laboratory - Chemistry and C hemistry - challengeon 07-19-2021 ALP [Catalytic activity/Vol] 121 U/L 45-117 [facility] Work Phone: ALT [Catalytic activity/Vol] 31 U/L 13-56 [facility] Work Phone: Globulin (S) [Mass/Vol] 2.9 g/dL 2.2-4.2 [facility] Work Phone: Laboratory - Coagulationon 0 07-19-2021 PT Coag (PPP) [Time] 12.9 s 11.7-14.9 [facility] Work Phone: Serum or plasma albumin marisela urement (mass/volume)on 07-19-2021 Albumin [Mass/Vol] 2.6 g/dL 3.2-5.0 [facility] Work Phone: Thin prep Papanicolaou smear with manual screeningon 07-19-2021 Thin prep Papanicolaou smear with manual screening 20 U/L 15-37 [facility] Work Phone: No Panel Informationon 07-17 Ethyl Alcohol Level < 3.0 mg/dL [facility] Work Phone: Comment on above: The serum:whole bloo d ethanol ratio is approximately 1.14and varies slightly with hematocrit. Medical Alcohol reference interval and critical value innon-tolerant individuals; 50 - 100 Impairment 100 Intoxication 100 - 250 Severe Poisoning 250 - 400 Deep/possible fatal coma Troponin I High Sensitivity 10 pg/mL 3.0-54.0 [facility] Work Phone: Comment on above: Please Note: New [place] t Units and Gender Specific Reference Ranges. For more information see Policy Stat Procedure Crescent High Sensitivity Troponin (TNIH) and attachments. CBC COMPLETE BLOOD COUNTon 07-03-2020 Erythrocyte distribution width (RBC) [Ratio] 14.9 % Normal 11.5-15.0 [facility] Comment on above: Order Comment: The A ptima SARS-CoV-2 assay is a nucleic acid amplification test intended for the qualitative detection of RNA from SARS-CoV-2 isolated and purified from nasopharyngeal (FACULTY HEAD),oropharyngeal (OP), nasal swab, sputum, and bronchoalveolar lavage (BAL) specimens from patients with signs and symptoms of infection who are suspected of COVID-19. Results are for the identification of SARS-CoV-2 RNA. The SARS-CoV-2 RNA is generally detectable during the acute phase of infection. The Aptima SARS-CoV-2 Assay on the Aspen and Aspen Fusion system is intended for use by laboratory personnel specifically instructed and trained in the operation of the Aspen and Aspen Fusion system. The Aptima SARS-CoV-2 assay is only for use under the Food and Drug Administration Emergency Use Authorization. Testing is limited to laboratories certified under the Clinical Laboratory Improvement Amendments of 1988 (CLIA), 42 U.S.C. ???263a, to perform high complexity tests. Not Detected: Not detected does not preclude SARS-CoV-2 infection and should not be used as the sole basis for patient management decisions. Not detected results must be combined with clinical observations, patient history, and epidemiological information. Performed By: #### 3 [id number] #### [address] Hematocrit (Bld) [Volume fraction] 35.3 % Low 36.0-45.0 [facility] Comment on above: Order Comment: The A ptima SARS-CoV-2 assay is a nucleic acid amplification test intended for the qualitative detection of RNA from SARS-CoV-2 isolated and purified from nasopharyngeal (FACULTY HEAD),oropharyngeal (OP), nasal swab, sputum, and bronchoalveolar lavage (BAL) specimens from patients with signs and symptoms of infection who are suspected of COVID-19. Results are for the identification of SARS-CoV-2 RNA. The SARS-CoV-2 RNA is generally detectable during the acute phase of infection. The Aptima SARS-CoV-2 Assay on the Aspen and Aspen Fusion system is intended for use by laboratory personnel specifically instructed and trained in the operation of the Aspen and Aspen Fusion system. The Aptima SARS-CoV-2 assay is only for use under the Food and Drug Administration Emergency Use Authorization. Testing is limited to laboratories certified under the Clinical Laboratory Improvement Amendments of 1988 (CLIA), 42 U.S.C. ???263a, to perform high complexity tests. Not Detected: Not detected does not preclude SARS-CoV-2 infection and should not be used as the sole basis for patient management decisions. Not detected results must be combined with clinical observations, patient history, and epidemiological information. Performed By: #### 3 [id number] #### [facility] [address] [place] [address], [facility] Hemoglobin (Bld) [Mass/Vol] 10.8 g/dL Low 12.0-15.0 [facility] Comment on above: Order Comment: The A ptima SARS-CoV-2 assay is a nucleic acid amplification test intended for the qualitative detection of RNA from SARS-CoV-2 isolated and purified from nasopharyngeal (FACULTY HEAD),oropharyngeal (OP), nasal swab, sputum, and bronchoalveolar lavage (BAL) specimens from patients with signs and symptoms of infection who are suspected of COVID-19. Results are for the identification of SARS-CoV-2 RNA. The SARS-CoV-2 RNA is generally detectable during the acute phase of infection. The Aptima SARS-CoV-2 Assay on the [employer] and Aspen Fusion system is intended for use by laboratory personnel specifically instructed and trained in the operation of the Aspen and Pet[employer] Fusion system. The Aptima SARS-CoV-2 assay is only for use under the Food and Drug Administration Emergency Use Authorization. Testing is limited to laboratories certified under the Clinical Laboratory Improvement Amendments of 1988 (CLIA), 42 U.S.C. ???263a, to perform high complexity tests. Not Detected: Not detected does not preclude SARS-CoV-2 infection and should not be used as the sole basis for patient management decisions. Not detected results must be combined with clinical observations, patient history, and epidemiological information. Performed By: #### 3 [id number] #### [facility] [address] [place] [address], [facility] MCH (RBC) [Entitic mass] 28.3 pg Normal 27.0-33.0 [facility] Comment on above: Order Comment: The A ptima SARS-CoV-2 assay is a nucleic acid amplification test intended for the qualitative detection of RNA from SARS-CoV-2 isolated and purified from nasopharyngeal (FACULTY HEAD),oropharyngeal (OP), nasal swab, sputum, and bronchoalveolar lavage (BAL) specimens from patients with signs and symptoms of infection who are suspected of COVID-19. Results are for the identification of SARS-CoV-2 RNA. The SARS-CoV-2 RNA is generally detectable during the acute phase of infection. The Aptima SARS-CoV-2 Assay on the Aspen and Aspen Fusion system is intended for use by laboratory personnel specifically instructed and trained in the operation of the Aspen and Aspen Fusion system. The Aptima SARS-CoV-2 assay is only for use under the Food and Drug Administration Emergency Use Authorization. Testing is limited to laboratories certified under the Clinical Laboratory Improvement Amendments of 1988 (CLIA), 42 U.S.C. ???263a, to perform high complexity tests. Not Detected: Not detected does not preclude SARS-CoV-2 infection and should not be used as the sole basis for patient management decisions. Not detected results must be combined with clinical observations, patient history, and epidemiological information. Performed By: #### 3 [id number] #### [facility] [address] [facility]. [address] MCHC (RBC) [Mass/Vol] 30.6 g/dL Low 32.0-35.0 [facility] Comment on above: Order Comment: The A ptima SARS-CoV-2 assay is a nucleic acid amplification test intended for the qualitative detection of RNA from SARS-CoV-2 isolated and purified from nasopharyngeal (FACULTY HEAD),oropharyngeal (OP), nasal swab, sputum, and bronchoalveolar lavage (BAL) specimens from patients with signs and symptoms of infection who are suspected of COVID-19. Results are for the identification of SARS-CoV-2 RNA. The SARS-CoV-2 RNA is generally detectable during the acute phase of infection. The Aptima SARS-CoV-2 Assay on the Aspen and Aspen Fusion system is intended for use by laboratory personnel specifically instructed and trained in the operation of the Aspen and Aspen Fusion system. The Aptima SARS-CoV-2 assay is only for use under the Food and Drug Administration Emergency Use Authorization. Testing is limited to laboratories certified under the Clinical Laboratory Improvement Amendments of 1988 (CLIA), 42 U.S.C. ???263a, to perform high complexity tests. Not Detected: Not detected does not preclude SARS-CoV-2 infection and should not be used as the sole basis for patient management decisions. Not detected results must be combined with clinical observations, patient history, and epidemiological information. Performed By: #### 3 [id number] #### [facility] [address] [place] [address], [facility] MCV (RBC) [Entitic vol] 92.7 fL Normal 82.0-98.0 [facility] Comment on above: Order Comment: The A ptima SARS-CoV-2 assay is a nucleic acid amplification test intended for the qualitative detection of RNA from SARS-CoV-2 isolated and purified from nasopharyngeal (FACULTY HEAD),oropharyngeal (OP), nasal swab, sputum, and bronchoalveolar lavage (BAL) specimens from patients with signs and symptoms of infection who are suspected of COVID-19. Results are for the identification of SARS-CoV-2 RNA. The SARS-CoV-2 RNA is generally detectable during the acute phase of infection. The Aptima SARS-CoV-2 Assay on the Petnet and Aspen Fusion system is intended for use by laboratory personnel specifically instructed and trained in the operation of the Aspen and Aspen Fusion system. The Aptima SARS-CoV-2 assay is only for use under the Food and Drug Administration Emergency Use Authorization. Testing is limited to laboratories certified under the Clinical Laboratory Improvement Amendments of 1988 (CLIA), 42 U.S.C. ???263a, to perform high complexity tests. Not Detected: Not detected does not preclude SARS-CoV-2 infection and should not be used as the sole basis for patient management decisions. Not detected results must be combined with clinical observations, patient history, and epidemiological information. Performed By: #### 3 [id number] #### [facility] [address] [facility] [place] [place] [address], [facility] Nucleated RBC/100 WBC (Bld) [Ratio] 0 % Normal 0-0 [facility] Comment on above: Order Comment: The A ptima SARS-CoV-2 assay is a nucleic acid amplification test intended for the qualitative detection of RNA from SARS-CoV-2 isolated and purified from nasopharyngeal (FACULTY HEAD),oropharyngeal (OP), nasal swab, sputum, and bronchoalveolar lavage (BAL) specimens from patients with signs and symptoms of infection who are suspected of COVID-19. Results are for the identification of SARS-CoV-2 RNA. The SARS-CoV-2 RNA is generally detectable during the acute phase of infection. The Aptima SARS-CoV-2 Assay on the Aspen and Aspen Fusion system is intended for use by laboratory personnel specifically instructed and trained in the operation of the Aspen and Aspen Fusion system. The Aptima SARS-CoV-2 assay is only for use under the Food and Drug Administration Emergency Use Authorization. Testing is limited to laboratories certified under the Clinical Laboratory Improvement Amendments of 1988 (CLIA), 42 U.S.C. ???263a, to perform high complexity tests. Not Detected: Not detected does not preclude SARS-CoV-2 infection and should not be used as the sole basis for patient management decisions. Not detected results must be combined with clinical observations, patient history, and epidemiological information. Performed By: #### 3 [id number] #### [facility] [address] PLAT CNT 123 10*3/uL Low 150-400 [facility] Comment on above: Order Comment: The A ptima SARS-CoV-2 assay is a nucleic acid amplification test intended for the qualitative detection of RNA from SARS-CoV-2 isolated and purified from nasopharyngeal (FACULTY HEAD),oropharyngeal (OP), nasal swab, sputum, and bronchoalveolar lavage (BAL) specimens from patients with signs and symptoms of infection who are suspected of COVID-19. Results are for the identification of SARS-CoV-2 RNA. The SARS-CoV-2 RNA is generally detectable during the acute phase of infection. The Aptima SARS-CoV-2 Assay on the Aspen and Aspen Fusion system is intended for use by laboratory personnel specifically instructed and trained in the operation of the Aspen and Aspen Fusion system. The Aptima SARS-CoV-2 assay is only for use under the Food and Drug Administration Emergency Use Authorization. Testing is limited to laboratories certified under the Clinical Laboratory Improvement Amendments of 1988 (CLIA), 42 U.S.C. ???263a, to perform high complexity tests. Not Detected: Not detected does not preclude SARS-CoV-2 infection and should not be used as the sole basis for patient management decisions. Not detected results must be combined with clinical observations, patient history, and epidemiological information. Performed By: #### 3 [id number] #### [facility] [address] RBC (Bld) [#/Vol] 3.81 10*6/uL Normal 3.80-5.00 [facility] Comment on above: Order Comment: The A ptima SARS-CoV-2 assay is a nucleic acid amplification test intended for the qualitative detection of RNA from SARS-CoV-2 isolated and purified from nasopharyngeal (FACULTY HEAD),oropharyngeal (OP), nasal swab, sputum, and bronchoalveolar lavage (BAL) specimens from patients with signs and symptoms of infection who are suspected of COVID-19. Results are for the identification of SARS-CoV-2 RNA. The SARS-CoV-2 RNA is generally detectable during the acute phase of infection. The Aptima SARS-CoV-2 Assay on the [employer] Fusion system is intended for use by laboratory personnel specifically instructed and trained in the operation of the Aspen and Petnet Fusion system. The Aptima SARS-CoV-2 assay is only for use under the Food and Drug Administration Emergency Use Authorization. Testing is limited to laboratories certified under the Clinical Laboratory Improvement Amendments of 1988 (CLIA), 42 U.S.C. ???263a, to perform high complexity tests. Not Detected: Not detected does not preclude SARS-CoV-2 infection and should not be used as the sole basis for patient management decisions. Not detected results must be combined with clinical observations, patient history, and epidemiological information. Performed By: #### 3 [id number] #### [facility] [address] WBC (Bld) [#/Vol] 2.25 10*3/uL Low 4.00-10.60 [facility] Comment on above: Order Comment: The A ptima SARS-CoV-2 assay is a nucleic acid amplification test intended for the qualitative detection of RNA from SARS-CoV-2 isolated and purified from nasopharyngeal (FACULTY HEAD),oropharyngeal (OP), nasal swab, sputum, and bronchoalveolar lavage (BAL) specimens from patients with signs and symptoms of infection who are suspected of COVID-19. Results are for the identification of SARS-CoV-2 RNA. The SARS-CoV-2 RNA is generally detectable during the acute phase of infection. The Aptima SARS-CoV-2 Assay on the Aspen and Aspen Fusion system is intended for use by laboratory personnel specifically instructed and trained in the operation of the Aspen and Aspen Fusion system. The Aptima SARS-CoV-2 assay is only for use under the Food and Drug Administration Emergency Use Authorization. Testing is limited to laboratories certified under the Clinical Laboratory Improvement Amendments of 1988 (CLIA), 42 U.S.C. ???263a, to perform high complexity tests. Not Detected: Not detected does not preclude SARS-CoV-2 infection and should not be used as the sole basis for patient management decisions. Not detected results must be combined with clinical observations, patient history, and epidemiological information. Performed By: #### 3 [id number] #### [facility] [address] APTTon 05-02-2021 aPTT Coag (Bld) [Time] 26.1 s Normal 25.0-35.0 [facility] Comment on above: Order Comment: RH Result Comment: ALL RESULTS MUST BE INTERPRETED WITH RESPECT TO BLOOD DRAWING ARTIFACT OR DILUTION ERROR OF ANTICOAGULANT AT THE TIME OF SAMPLING. THE APTT SHOULD NOT BE USED TO MONITOR UNFRACTIONATED HEPARIN THERAPY, THIS LABORATORY NO LONGER HAS AN ESTABLISHED THERAPEUTIC RANGE BASED ON THE APTT. IT IS RECOMMENDED THAT THE UFH - HEPARIN ASSAY (ANTI-XA ACTIVITY) BE USED FOR THIS PURPOSE. Performed By: #### 3 [id number] #### [facility] [address] BONE MARROW SCREENon 021 BONE MARROW SCR SEE BONE MARROW SPEC IAL REPORT FORM Normal [facility] Comment on above: Performed By: #### [id number] #### [facility] [address] CBC W/DIFFon 05-02-2021 ABS IMM GRANS 0.0 10*3/uL Normal 0.0-0.2 [facility] Comment on above: Order Comment: RH Performed By: #### [id number] #### [facility] [address] [place] [address], [facility] ABS NEUTROPHILS 1.1 10*3/uL Low 1.6-7.6 [facility] Comment on above: Order Comment: RH Performed By: #### 3 3 #### [facility] [address] [place] [address], [facility] Basophils (Bld) [#/Vol] 0.0 10*3/uL Normal 0.0-0.2 [facility] Comment on above: Order Comment: RH Performed By: #### 3 3 #### [facility] [address] [place] [address], [facility] Basophils/100 WBC (Bld) 0.5 % Normal 0.0-1.0 [facility] Comment on above: Order Comment: RH Performed By: #### 3 3 #### [facility] [address] [place] [address], [facility] Eosinophils (Bld) [#/Vol] 0.0 10*3/uL Normal 0.0-0.5 [facility] Comment on above: Order Comment: RH Performed By: #### 3 0313 #### [facility] [address] [place] [address], [facility] Eosinophils/100 WBC (Bld) 1.4 % Normal 0.0-6.0 [facility] Comment on above: Order Comment: RH Performed By: #### 3 3 #### [facility] [address] [place] [address], [facility] Erythrocyte distribution width (RBC) [Ratio] 15.0 % Normal 11.5-15.0 [facility] Comment on above: Order Comment: RH Performed By: #### 3 3 #### [facility] [address] [place] [address], [facility] Hematocrit (Bld) [Volume fraction] 35.1 % Low 36.0-45.0 [facility] Comment on above: Order Comment: RH Performed By: #### 3 0313 #### [facility] [address] [place] [address], [facility] Hemoglobin (Bld) [Mass/Vol] 11.0 g/dL Low 12.0-15.0 [facility] Comment on above: Order Comment: RH Performed By: #### 3 0313 #### [facility] [address] [place] [address], [facility] IMMATURE GRANS 0.9 % Normal 0.0-1.0 [facility] Comment on above: Order Comment: RH Performed By: #### 3 0313 #### [facility] [address] [facility] [place] [place] [address], [facility] Lymphocytes (Bld) [#/Vol] 0.7 10*3/uL Low 1.2-4.0 [facility] Comment on above: Order Comment: RH Performed By: #### 3 0313 #### [facility] [address] [facility] [place] [address], [facility] Lymphocytes/100 WBC (Bld) 33.3 % Normal 20.0-45.0 [facility] Comment on above: Order Comment: RH Performed By: #### 3 0313 #### [facility] [address] [place] [address], [facility] MCH (RBC) [Entitic mass] 29.0 pg Normal 27.0-33.0 [facility] Comment on above: Order Comment: RH Performed By: #### 3 0313 #### [facility] [address] [place] [address], [facility] MCHC (RBC) [Mass/Vol] 31.3 g/dL Low 32.0-35.0 [facility] Comment on above: Order Comment: RH Performed By: #### 3 3 #### [facility] [address] [place] [address], [facility] MCV (RBC) [Entitic vol] 92.6 fL Normal 82.0-98.0 [facility] Comment on above: Order Comment: RH Performed By: #### 3 0313 #### [facility] [address] [place] [address], [facility] Monocytes (Bld) [#/Vol] 0.3 10*3/uL Normal 0.1-1.0 [facility] Comment on above: Order Comment: RH Performed By: #### 3 0313 #### [facility] [address] [facility] [place] [address], [facility] MONOS 13.1 % High 5.0-12.0 [facility] Comment on above: Order Comment: RH Performed By: #### 3 3 #### [facility] [address] [facility] [facility] [place] [address], [facility] Neutrophils/100 WBC (Bld) 50.8 % Normal 40.0-72.0 [facility] Comment on above: Order Comment: RH Performed By: #### 3 3 #### [facility] [address] [facility] [place] [address], [facility] Nucleated RBC/100 WBC (Bld) [Ratio] 0 % Normal 0-0 [facility] Comment on above: Order Comment: RH Performed By: #### 3 3 #### [facility] [address] [place] [address], [facility] PLAT CNT 129 10*3/uL Low 150-400 [facility] Comment on above: Order Comment: RH Performed By: #### 3 0313 #### [facility] [address] [facility]. [place] [id number], [facility] RBC (Bld) [#/Vol] 3.79 10*6/uL Low 3.80-5.00 [facility] Comment on above: Order Comment: RH Performed By: #### 3 3 #### [facility] [address] WBC (Bld) [#/Vol] 2.13 10*3/uL Low 4.00-10.60 [facility] Comment on above: Order Comment: RH Performed By: #### 3 0313 #### [id number] [place] [address] CT BIOPSY BONE MARROWon 11- CT BIOPSY BONE MARROW [facility] Department of Radiology [address] [place] [address] [id number] == Patient Name: ALFIE HOGAN : 1960 Sex: F Age: Race: White Pt. Location: [id number] Patient Status: I Ordered Date: 04/27/2021 11:30:00 AM Completed Date: 05/02/2021 12:29 PM Requesting Provider: ALIYA ASHLEY Attending Provider: RAJINDER CERRATO Report Copy To: Signs & Symptoms: Other History: See Comments Comments: Other, pancytopenia Exam: CT BIOPSY BONE MARROW == History: Anemia Exam/Technique: CT GUIDED LEFTILIAC CREST BONE MARROW ASPIRATE AND CORE BIOPSY An informed consent was obtained from the patient. The patient's cardiopulmonary status was evaluated and deemed suitable for moderate sedation. The usual sterile barrier technique and local anesthesia were employed. IV conscious sedation was administered with a total of 3 mg of Versed and 150 mcg of fentanyl administered while the patient was monitored with EKG, blood pressure monitor and pulse oximetry by appropriately trained nurses. I was present supervising for [address] images were obtained of the pelvic bones with the patient lying left lateral decubitus. Local anaesthetic was carefully instilled in the periosteum of the iliac crest with a spinal needle. The left iliac bone was then entered from a posterior oblique from right to left approach with a powered bone marrow biopsy needle Marrow aspirate and a short core of tissue were obtained and submitted to the bone marrow technologist. The procedure was well tolerated and there was no evidence of complications. Following the procedure, the patient was recovered according to our moderate sedation policy. IMPRESSION: Uneventful CT guided left iliac bone marrow biopsy All CT scans at this facility use dose modulation, iterative reconstruction, and/or weight based dosing when appropriate to reduce radiation dose to as low as reasonably achievable. Electronically signed: Lui Smith. Transcribed by: [email or web address], User Resident: Electronically Signed by: LUI SMITH @ 05/02/2021 03:19 PM Normal [facility] Comment on above: Order Comment: Other , pancytopenia [facility] RES[facility] Results faxed to ordering physician and sent to HIM Normal [facility] Comment on above: Result Comment: Test performed by [facility] * [address] [place] [address], [address] * [place], [place] * [phone] Endoscopy Support Specialist: Robert Duval M.D. RESULTS FAXED TO [phone] Performed By: #### 3 1839 #### [address] PROTHROMBIN TIMEon 1 INR Coag (PPP) [Relative time] 0.80 {INR} Low 0.91-1.16 [facility] Comment on above: Order Comment: No: D o not add to previous draw Result Comment: ACC P RECOMMENDED INR FOR WARFARIN THERAPY ------- CONDITION INR PROPHYLAXIS OF VENOUS THROMBOSIS 2-3 (HIGH-RISK SURGERY) TREATMENT OF VENOUS THROMBOSIS 2-3 TREATMENT OF PULMONARY EMBOLISM 2-3 PREVENTION OF SYSTEMIC EMBOLISM: 2-3 ACUTE MYOCARDIAL INFARCTION TISSUE HEART VALVES VALVULAR HEART DISEASE ATRIAL FIBRILLATION RECURRENT SYSTEMIC EMBOLISM MECHANICAL HEART VALVE 2.5-3.5 FROM: ORAL ANTICOAGULANTS. MECHANISM OF ACTION, CLINICAL EFFECTIVENESS, AND OPTIMAL THERAPEUTIC RANGE. CHEST 1995;108:231S-246S. Performed By: #### 1 0070, [id number] #### [facility] [address] [facility]. [address] PT Coag (PPP) [Time] 11.1 s Low 12.3-14.8 [facility] Comment on above: Order Comment: No: D o not add to previous draw Result Comment: ALL RESULTS MUST BE INTERPRETED WITH RESPECT TO BLOOD DRAWING ARTIFACT OR DILUTION ERROR OF ANTICOAGULANT AT THE TIME OF SAMPLING. Performed By: #### 1 0070, 91273 #### [facility] [address] [facility]. [address] *SARS-CoV-2 COVID-19on 04-30 SARS-CoV-2 (COVID-19) RNA MARY+probe Ql (Unsp spec) Not detected Normal Not Detected [facility] Comment on above: Order Comment: The A ptima SARS-CoV-2 assay is a nucleic acid amplification test intended for the qualitative detection of RNA from SARS-CoV-2 isolated and purified from nasopharyngeal (FACULTY HEAD),oropharyngeal (OP), nasal swab, sputum, and bronchoalveolar lavage (BAL) specimens from patients with signs and symptoms of infection who are suspected of COVID-19. Results are for the identification of SARS-CoV-2 RNA. The SARS-CoV-2 RNA is generally detectable during the acute phase of infection. The Aptima SARS-CoV-2 Assay on the Petnet and ozuke system is intended for use by laboratory personnel specifically instructed and trained in the operation of the Aspen and Petnet Fusion system. The Aptima SARS-CoV-2 assay is only for use under the Food and Drug Administration Emergency Use Authorization. Testing is limited to laboratories certified under the Clinical Laboratory Improvement Amendments of 1988 (CLIA), 42 U.S.C. ???263a, to perform high complexity tests. Not Detected: Not detected does not preclude SARS-CoV-2 infection and should not be used as the sole basis for patient management decisions. Not detected results must be combined with clinical observations, patient history, and epidemiological information. Performed By: #### 3 1792 #### [facility] [address] *SARS-CoV-2 COVID-19on 04-28 SARS-CoV-2 (COVID-19) RNA MARY+probe Ql (Unsp spec) Not detected Normal Not Detected [facility] Comment on above: Order Comment: The A ptima SARS-CoV-2 assay is a nucleic acid amplification test intended for the qualitative detection of RNA from SARS-CoV-2 isolated and purified from nasopharyngeal (FACULTY HEAD),oropharyngeal (OP), nasal swab, sputum, and bronchoalveolar lavage (BAL) specimens from patients with signs and symptoms of infection who are suspected of COVID-19. Results are for the identification of SARS-CoV-2 RNA. The SARS-CoV-2 RNA is generally detectable during the acute phase of infection. The Aptima SARS-CoV-2 Assay on the Petnet and Petnet Fusion system is intended for use by laboratory personnel specifically instructed and trained in the operation of the Petnet and Petnet Fusion system. The Aptima SARS-CoV-2 assay is only for use under the Food and Drug Administration Emergency Use Authorization. Testing is limited to laboratories certified under the Clinical Laboratory Improvement Amendments of 1988 (CLIA), 42 U.S.C. ???263a, to perform high complexity tests. Not Detected: Not detected does not preclude SARS-CoV-2 infection and should not be used as the sole basis for patient management decisions. Not detected results must be combined with clinical observations, patient history, and epidemiological information. Performed By: #### 3 1792 #### [facility] [address] [facility] [address] CBC COMPLETE BLOOD COUNTon 06-28-2020 Erythrocyte distribution width (RBC) [Ratio] 15.1 % High 11.5-15.0 [facility] Comment on above: Order Comment: No: D o not add to previous draw Performed By: #### 1 69, 69664 #### [facility] [address] [place] [address], [facility] Hematocrit (Bld) [Volume fraction] 32.9 % Low 36.0-45.0 [facility] Comment on above: Order Comment: No: D o not add to previous draw Performed By: #### 1 69, 26262 #### [facility] [address] [place] [address], [facility] Hemoglobin (Bld) [Mass/Vol] 10.1 g/dL Low 12.0-15.0 [facility] Comment on above: Order Comment: No: D o not add to previous draw Performed By: #### 1 69, 73695 #### [facility] [address] [place] [address], [facility] MCH (RBC) [Entitic mass] 28.5 pg Normal 27.0-33.0 [facility] Comment on above: Order Comment: No: D o not add to previous draw Performed By: #### 1 69, 67836 #### [facility] [address] [place] [address], [facility] MCHC (RBC) [Mass/Vol] 30.7 g/dL Low 32.0-35.0 [facility] Comment on above: Order Comment: No: D o not add to previous draw Performed By: #### 1 69, 31289 #### [facility] [address] [place] [address], [facility] MCV (RBC) [Entitic vol] 92.9 fL Normal 82.0-98.0 [facility] Comment on above: Order Comment: No: D o not add to previous draw Performed By: #### 1 69, 56449 #### [facility] [address] [facility] [address], [facility] Nucleated RBC/100 WBC (Bld) [Ratio] 0 % Normal 0-0 [facility] Comment on above: Order Comment: No: D o not add to previous draw Performed By: #### 1 69, 30584 #### [facility] [address] [place] [address], [facility] PLAT CNT 131 10*3/uL Low 150-400 [facility] Comment on above: Order Comment: No: D o not add to previous draw Performed By: #### 1 69, 42081 #### [facility] [address] [place] [address], [facility] RBC (Bld) [#/Vol] 3.54 10*6/uL Low 3.80-5.00 [facility] Comment on above: Order Comment: No: D o not add to previous draw Performed By: #### 1 69, 94305 #### [facility] [address] [facility] [place] [address], [facility] WBC (Bld) [#/Vol] 1.68 10*3/uL Low 4.00-10.60 [facility] Comment on above: Order Comment: No: D o not add to previous draw Performed By: #### 1 69, 58310 #### [facility] [address] PROCALCITONINon 04-28-2021 PROCALCITONIN 0.06 ng/mL Normal 0.00-0.10 [facility] Comment on above: Order Comment: No: D o not add to previous draw Result Comment: Susp ected Lower Respiratory Tract Infection: 0.1-0.25ng/mL- Low likelihood for bacterial infection;Antibiotics discouraged.* >0.25ng/mL- Increased likelihood bacterial infection;Antibiotics encouraged. Suspected Sepsis: Strongly consider initiating antibiotics in all unstable patients. 0.1-0.5ng/mL- Low likelihood for sepsis; Antibiotics discouraged.* >0.5ng/mL- Increased likelihood sepsis; Antibiotics encouraged. >2.0ng/mL- High risk of sepsis/septic shock; Antibiotics strongly encouraged. *Recommend retesting PCT within 6-12hours if clinically indicated and initial PCT<0.5ng/mL Performed By: #### 1 0070, 67361 #### [facility] [address] [facility]. [address] ANAon 04-27-2021 ZOYA PATTERN NUCLEOLAR Normal [facility] Comment on above: Order Comment: No: D o not add to previous draw Result Comment: The SHERON IFA ZOYA Hep-2 test utilizes the indirect fluorescent antibody (IFA) method that has been used extensively for detecting the presence of ZOYA in sera of patients with systemic lupus erythematosus (SLE), and other clinically similar connective tissue disorders. In addition, ZOYA may be associated with numerous drug-induced lupus syndromes which clinically mimic the spontaneous form of SLE. Positive ZOYA may be found in healthy individuals. It is therefore imperative that ZOYA results be interpreted in light of the patients clinical condition by medical authority. Performed By: #### 1 0070, 45647 #### [facility] [address] [place] [address], [facility] ZOYA SCREEN 1:80 Abnormal <1:40,1:40 [facility] Comment on above: Order Comment: No: D o not add to previous draw Result Comment: Test performed using SHERON IFA ZOYA Hep-2 Test, a pre-standardized assay designed for the qualitative and semi-quantitative detection of antinuclear antibodies. Performed By: #### 1 0070, 62901 #### [facility] [address] [place] [address], [facility] CBC COMPLETE BLOOD COUNTon 06-27-2020 Erythrocyte distribution width (RBC) [Ratio] 15.3 % High 11.5-15.0 [facility] Comment on above: Order Comment: RH Performed By: #### 3 3 #### [facility] [address] [place] [address], [facility] Hematocrit (Bld) [Volume fraction] 32.1 % Low 36.0-45.0 [facility] Comment on above: Order Comment: RH Performed By: #### 3 3 #### [facility] [address] [place] [address], [facility] Hemoglobin (Bld) [Mass/Vol] 9.5 g/dL Low 12.0-15.0 [facility] Comment on above: Order Comment: RH Performed By: #### 3 3 #### [facility] [address] [place] [address], [facility] MCH (RBC) [Entitic mass] 28.2 pg Normal 27.0-33.0 [facility] Comment on above: Order Comment: RH Performed By: #### 3 3 #### [facility] [address] [place] [address], [facility] MCHC (RBC) [Mass/Vol] 29.6 g/dL Low 32.0-35.0 [facility] Comment on above: Order Comment: RH Performed By: #### 3 3 #### [facility] [address] [place] [address], [facility] MCV (RBC) [Entitic vol] 95.3 fL Normal 82.0-98.0 [facility] Comment on above: Order Comment: RH Performed By: #### 3 3 #### [facility] [address] [place], [address] Nucleated RBC/100 WBC (Bld) [Ratio] 0 % Normal 0-0 [facility] Comment on above: Order Comment: RH Performed By: #### 3 0313 #### [facility] [address] [place] [address], [facility] PLAT CNT 102 10*3/uL Low 150-400 [facility] Comment on above: Order Comment: RH Performed By: #### 3 0313 #### [facility] [address] [place] [address], [facility] RBC (Bld) [#/Vol] 3.37 10*6/uL Low 3.80-5.00 [facility] Comment on above: Order Comment: RH Performed By: #### 3 0313 #### [facility] [address] [place] [address], [facility] WBC (Bld) [#/Vol] 1.45 10*3/uL Critically low 4.00-10.60 [facility] Comment on above: Order Comment: RH Result Comment: RESU LTS CHECKED AND CALLED. ACCURATELY READ BACK BY SHAYY VERA RN AT 0538 Performed By: #### 3 0313 #### [facility] [address] CBC W/DIFFon 04-27-2021 ABS IMM GRANS 0.0 10*3/uL Normal 0.0-0.2 [facility] Comment on above: Order Comment: The A ptima SARS-CoV-2 assay is a nucleic acid amplification test intended for the qualitative detection of RNA from SARS-CoV-2 isolated and purified from nasopharyngeal (FACULTY HEAD),oropharyngeal (OP), nasal swab, sputum, and bronchoalveolar lavage (BAL) specimens from patients with signs and symptoms of infection who are suspected of COVID-19. Results are for the identification of SARS-CoV-2 RNA. The SARS-CoV-2 RNA is generally detectable during the acute phase of infection. The Aptima SARS-CoV-2 Assay on the Petnet and ozuke system is intended for use by laboratory personnel specifically instructed and trained in the operation of the Aspen and Aspen Fusion system. The Aptima SARS-CoV-2 assay is only for use under the Food and Drug Administration Emergency Use Authorization. Testing is limited to laboratories certified under the Clinical Laboratory Improvement Amendments of 1988 (CLIA), 42 U.S.C. ???263a, to perform high complexity tests. Not Detected: Not detected does not preclude SARS-CoV-2 infection and should not be used as the sole basis for patient management decisions. Not detected results must be combined with clinical observations, patient history, and epidemiological information. Performed By: #### 3 1792 #### [facility] [address] [facility] [place] [address], [facility] ABS NEUTROPHILS 1.1 10*3/uL Low 1.6-7.6 [facility] Comment on above: Order Comment: The A ptima SARS-CoV-2 assay is a nucleic acid amplification test intended for the qualitative detection of RNA from SARS-CoV-2 isolated and purified from nasopharyngeal (FACULTY HEAD),oropharyngeal (OP), nasal swab, sputum, and bronchoalveolar lavage (BAL) specimens from patients with signs and symptoms of infection who are suspected of COVID-19. Results are for the identification of SARS-CoV-2 RNA. The SARS-CoV-2 RNA is generally detectable during the acute phase of infection. The Aptima SARS-CoV-2 Assay on the Aspen and Aspen Fusion system is intended for use by laboratory personnel specifically instructed and trained in the operation of the Aspen and Aspen Fusion system. The Aptima SARS-CoV-2 assay is only for use under the Food and Drug Administration Emergency Use Authorization. Testing is limited to laboratories certified under the Clinical Laboratory Improvement Amendments of 1988 (CLIA), 42 U.S.C. ???263a, to perform high complexity tests. Not Detected: Not detected does not preclude SARS-CoV-2 infection and should not be used as the sole basis for patient management decisions. Not detected results must be combined with clinical observations, patient history, and epidemiological information. Performed By: #### 3 1792 #### [facility] [address] [place] [address], [facility] Basophils (Bld) [#/Vol] 0.0 10*3/uL Normal 0.0-0.2 [facility] Comment on above: Order Comment: The A ptima SARS-CoV-2 assay is a nucleic acid amplification test intended for the qualitative detection of RNA from SARS-CoV-2 isolated and purified from nasopharyngeal (FACULTY HEAD),oropharyngeal (OP), nasal swab, sputum, and bronchoalveolar lavage (BAL) specimens from patients with signs and symptoms of infection who are suspected of COVID-19. Results are for the identification of SARS-CoV-2 RNA. The SARS-CoV-2 RNA is generally detectable during the acute phase of infection. The Aptima SARS-CoV-2 Assay on the Aspen and Aspen Fusion system is intended for use by laboratory personnel specifically instructed and trained in the operation of the Aspen and Aspen Fusion system. The Aptima SARS-CoV-2 assay is only for use under the Food and Drug Administration Emergency Use Authorization. Testing is limited to laboratories certified under the Clinical Laboratory Improvement Amendments of 1988 (CLIA), 42 U.S.C. ???263a, to perform high complexity tests. Not Detected: Not detected does not preclude SARS-CoV-2 infection and should not be used as the sole basis for patient management decisions. Not detected results must be combined with clinical observations, patient history, and epidemiological information. Performed By: #### 3 1792 #### [address] Basophils/100 WBC (Bld) 0.0 % Normal 0.0-1.0 T [facility] Comment on above: Order Comment: The A ptima SARS-CoV-2 assay is a nucleic acid amplification test intended for the qualitative detection of RNA from SARS-CoV-2 isolated and purified from nasopharyngeal (FACULTY HEAD),oropharyngeal (OP), nasal swab, sputum, and bronchoalveolar lavage (BAL) specimens from patients with signs and symptoms of infection who are suspected of COVID-19. Results are for the identification of SARS-CoV-2 RNA. The SARS-CoV-2 RNA is generally detectable during the acute phase of infection. The Aptima SARS-CoV-2 Assay on the Aspen and Aspen Fusion system is intended for use by laboratory personnel specifically instructed and trained in the operation of the Aspen and Aspen Fusion system. The Aptima SARS-CoV-2 assay is only for use under the Food and Drug Administration Emergency Use Authorization. Testing is limited to laboratories certified under the Clinical Laboratory Improvement Amendments of 1988 (CLIA), 42 U.S.C. ???263a, to perform high complexity tests. Not Detected: Not detected does not preclude SARS-CoV-2 infection and should not be used as the sole basis for patient management decisions. Not detected results must be combined with clinical observations, patient history, and epidemiological information. Performed By: #### 3 1792 #### [facility] [address] Eosinophils (Bld) [#/Vol] 0.0 10*3/uL Normal 0.0-0.5 [facility] Comment on above: Order Comment: The A ptima SARS-CoV-2 assay is a nucleic acid amplification test intended for the qualitative detection of RNA from SARS-CoV-2 isolated and purified from nasopharyngeal (FACULTY HEAD),oropharyngeal (OP), nasal swab, sputum, and bronchoalveolar lavage (BAL) specimens from patients with signs and symptoms of infection who are suspected of COVID-19. Results are for the identification of SARS-CoV-2 RNA. The SARS-CoV-2 RNA is generally detectable during the acute phase of infection. The Aptima SARS-CoV-2 Assay on the [employer] system is intended for use by laboratory personnel specifically instructed and trained in the operation of the [employer] system. The Aptima SARS-CoV-2 assay is only for use under the Food and Drug Administration Emergency Use Authorization. Testing is limited to laboratories certified under the Clinical Laboratory Improvement Amendments of 1988 (CLIA), 42 U.S.C. ???263a, to perform high complexity tests. Not Detected: Not detected does not preclude SARS-CoV-2 infection and should not be used as the sole basis for patient management decisions. Not detected results must be combined with clinical observations, patient history, and epidemiological information. Performed By: #### 3 1792 #### [facility] [address] [facility] Eosinophils/100 WBC (Bld) 2.2 % Normal 0.0-6.0 [facility] Comment on above: Order Comment: The A ptima SARS-CoV-2 assay is a nucleic acid amplification test intended for the qualitative detection of RNA from SARS-CoV-2 isolated and purified from nasopharyngeal (FACULTY HEAD),oropharyngeal (OP), nasal swab, sputum, and bronchoalveolar lavage (BAL) specimens from patients with signs and symptoms of infection who are suspected of COVID-19. Results are for the identification of SARS-CoV-2 RNA. The SARS-CoV-2 RNA is generally detectable during the acute phase of infection. The Aptima SARS-CoV-2 Assay on the [employer] system is intended for use by laboratory personnel specifically instructed and trained in the operation of the [employer] system. The Aptima SARS-CoV-2 assay is only for use under the Food and Drug Administration Emergency Use Authorization. Testing is limited to laboratories certified under the Clinical Laboratory Improvement Amendments of 1988 (CLIA), 42 U.S.C. ???263a, to perform high complexity tests. Not Detected: Not detected does not preclude SARS-CoV-2 infection and should not be used as the sole basis for patient management decisions. Not detected results must be combined with clinical observations, patient history, and epidemiological information. Performed By: #### 3 1792 #### [address] Erythrocyte distribution width (RBC) [Ratio] 15.4 % High 11.5-15.0 [facility] Comment on above: Order Comment: The A ptima SARS-CoV-2 assay is a nucleic acid amplification test intended for the qualitative detection of RNA from SARS-CoV-2 isolated and purified from nasopharyngeal (FACULTY HEAD),oropharyngeal (OP), nasal swab, sputum, and bronchoalveolar lavage (BAL) specimens from patients with signs and symptoms of infection who are suspected of COVID-19. Results are for the identification of SARS-CoV-2 RNA. The SARS-CoV-2 RNA is generally detectable during the acute phase of infection. The Aptima SARS-CoV-2 Assay on the [employer] system is intended for use by laboratory personnel specifically instructed and trained in the operation of the [employer] system. The Aptima SARS-CoV-2 assay is only for use under the Food and Drug Administration Emergency Use Authorization. Testing is limited to laboratories certified under the Clinical Laboratory Improvement Amendments of 1988 (CLIA), 42 U.S.C. ???263a, to perform high complexity tests. Not Detected: Not detected does not preclude SARS-CoV-2 infection and should not be used as the sole basis for patient management decisions. Not detected results must be combined with clinical observations, patient history, and epidemiological information. Performed By: #### 3 1792 #### [facility] [address] [place] [address], [facility] Hematocrit (Bld) [Volume fraction] 32.0 % Low 36.0-45.0 [facility] Comment on above: Order Comment: The A ptima SARS-CoV-2 assay is a nucleic acid amplification test intended for the qualitative detection of RNA from SARS-CoV-2 isolated and purified from nasopharyngeal (FACULTY HEAD),oropharyngeal (OP), nasal swab, sputum, and bronchoalveolar lavage (BAL) specimens from patients with signs and symptoms of infection who are suspected of COVID-19. Results are for the identification of SARS-CoV-2 RNA. The SARS-CoV-2 RNA is generally detectable during the acute phase of infection. The Aptima SARS-CoV-2 Assay on the [employer] system is intended for use by laboratory personnel specifically instructed and trained in the operation of the [employer] system. The Aptima SARS-CoV-2 assay is only for use under the Food and Drug Administration Emergency Use Authorization. Testing is limited to laboratories certified under the Clinical Laboratory Improvement Amendments of 1988 (CLIA), 42 U.S.C. ???263a, to perform high complexity tests. Not Detected: Not detected does not preclude SARS-CoV-2 infection and should not be used as the sole basis for patient management decisions. Not detected results must be combined with clinical observations, patient history, and epidemiological information. Performed By: #### 3 1792 #### [facility] [address] [facility] [place] [address], [facility] Hemoglobin (Bld) [Mass/Vol] 9.8 g/dL Low 12.0-15.0 [facility] Comment on above: Order Comment: The A ptima SARS-CoV-2 assay is a nucleic acid amplification test intended for the qualitative detection of RNA from SARS-CoV-2 isolated and purified from nasopharyngeal (FACULTY HEAD),oropharyngeal (OP), nasal swab, sputum, and bronchoalveolar lavage (BAL) specimens from patients with signs and symptoms of infection who are suspected of COVID-19. Results are for the identification of SARS-CoV-2 RNA. The SARS-CoV-2 RNA is generally detectable during the acute phase of infection. The Aptima SARS-CoV-2 Assay on the [employer] system is intended for use by laboratory personnel specifically instructed and trained in the operation of the [employer] system. The Aptima SARS-CoV-2 assay is only for use under the Food and Drug Administration Emergency Use Authorization. Testing is limited to laboratories certified under the Clinical Laboratory Improvement Amendments of 1988 (CLIA), 42 U.S.C. ???263a, to perform high complexity tests. Not Detected: Not detected does not preclude SARS-CoV-2 infection and should not be used as the sole basis for patient management decisions. Not detected results must be combined with clinical observations, patient history, and epidemiological information. Performed By: #### 3 1792 #### [facility] [address] IMMATURE GRANS 0.0 % Normal 0.0-1.0 [facility] Comment on above: Order Comment: The A ptima SARS-CoV-2 assay is a nucleic acid amplification test intended for the qualitative detection of RNA from SARS-CoV-2 isolated and purified from nasopharyngeal (FACULTY HEAD),oropharyngeal (OP), nasal swab, sputum, and bronchoalveolar lavage (BAL) specimens from patients with signs and symptoms of infection who are suspected of COVID-19. Results are for the identification of SARS-CoV-2 RNA. The SARS-CoV-2 RNA is generally detectable during the acute phase of infection. The Aptima SARS-CoV-2 Assay on the [employer] system is intended for use by laboratory personnel specifically instructed and trained in the operation of the Asp[employer] Fusion system. The Aptima SARS-CoV-2 assay is only for use under the Food and Drug Administration Emergency Use Authorization. Testing is limited to laboratories certified under the Clinical Laboratory Improvement Amendments of 1988 (CLIA), 42 U.S.C. ???263a, to perform high complexity tests. Not Detected: Not detected does not preclude SARS-CoV-2 infection and should not be used as the sole basis for patient management decisions. Not detected results must be combined with clinical observations, patient history, and epidemiological information. Performed By: #### 3 1792 #### [facility] [address] Lymphocytes (Bld) [#/Vol] 0.5 10*3/uL Low 1.2-4.0 [facility] Comment on above: Order Comment: The A ptima SARS-CoV-2 assay is a nucleic acid amplification test intended for the qualitative detection of RNA from SARS-CoV-2 isolated and purified from nasopharyngeal (FACULTY HEAD),oropharyngeal (OP), nasal swab, sputum, and bronchoalveolar lavage (BAL) specimens from patients with signs and symptoms of infection who are suspected of COVID-19. Results are for the identification of SARS-CoV-2 RNA. The SARS-CoV-2 RNA is generally detectable during the acute phase of infection. The Aptima SARS-CoV-2 Assay on the [employer] system is intended for use by laboratory personnel specifically instructed and trained in the operation of the Aspen [employer] Fusion system. The Aptima SARS-CoV-2 assay is only for use under the Food and Drug Administration Emergency Use Authorization. Testing is limited to laboratories certified under the Clinical Laboratory Improvement Amendments of 1988 (CLIA), 42 U.S.C. ???263a, to perform high complexity tests. Not Detected: Not detected does not preclude SARS-CoV-2 infection and should not be used as the sole basis for patient management decisions. Not detected results must be combined with clinical observations, patient history, and epidemiological information. Performed By: #### 3 1792 #### [facility] [address] [facility] [place] [address], [facility] Lymphocytes/100 WBC (Bld) 25.1 % Normal 20.0-45.0 [facility] Comment on above: Order Comment: The A ptima SARS-CoV-2 assay is a nucleic acid amplification test intended for the qualitative detection of RNA from SARS-CoV-2 isolated and purified from nasopharyngeal (FACULTY HEAD),oropharyngeal (OP), nasal swab, sputum, and bronchoalveolar lavage (BAL) specimens from patients with signs and symptoms of infection who are suspected of COVID-19. Results are for the identification of SARS-CoV-2 RNA. The SARS-CoV-2 RNA is generally detectable during the acute phase of infection. The Aptima SARS-CoV-2 Assay on the [employer] Fusion system is intended for use by laboratory personnel specifically instructed and trained in the operation of the Aspen and Aspen Fusion system. The Aptima SARS-CoV-2 assay is only for use under the Food and Drug Administration Emergency Use Authorization. Testing is limited to laboratories certified under the Clinical Laboratory Improvement Amendments of 1988 (CLIA), 42 U.S.C. ???263a, to perform high complexity tests. Not Detected: Not detected does not preclude SARS-CoV-2 infection and should not be used as the sole basis for patient management decisions. Not detected results must be combined with clinical observations, patient history, and epidemiological information. Performed By: #### 3 1792 #### [address] MCH (RBC) [Entitic mass] 28.7 pg Normal 27.0-33.0 [facility] Comment on above: Order Comment: The A ptima SARS-CoV-2 assay is a nucleic acid amplification test intended for the qualitative detection of RNA from SARS-CoV-2 isolated and purified from nasopharyngeal (FACULTY HEAD),oropharyngeal (OP), nasal swab, sputum, and bronchoalveolar lavage (BAL) specimens from patients with signs and symptoms of infection who are suspected of COVID-19. Results are for the identification of SARS-CoV-2 RNA. The SARS-CoV-2 RNA is generally detectable during the acute phase of infection. The Aptima SARS-CoV-2 Assay on the [employer] system is intended for use by laboratory personnel specifically instructed and trained in the operation of the Asp[employer] Fusion system. The Aptima SARS-CoV-2 assay is only for use under the Food and Drug Administration Emergency Use Authorization. Testing is limited to laboratories certified under the Clinical Laboratory Improvement Amendments of 1988 (CLIA), 42 U.S.C. ???263a, to perform high complexity tests. Not Detected: Not detected does not preclude SARS-CoV-2 infection and should not be used as the sole basis for patient management decisions. Not detected results must be combined with clinical observations, patient history, and epidemiological information. Performed By: #### 3 1792 #### [facility] [address] MCHC (RBC) [Mass/Vol] 30.6 g/dL Low 32.0-35.0 [facility] Comment on above: Order Comment: The A ptima SARS-CoV-2 assay is a nucleic acid amplification test intended for the qualitative detection of RNA from SARS-CoV-2 isolated and purified from nasopharyngeal (FACULTY HEAD),oropharyngeal (OP), nasal swab, sputum, and bronchoalveolar lavage (BAL) specimens from patients with signs and symptoms of infection who are suspected of COVID-19. Results are for the identification of SARS-CoV-2 RNA. The SARS-CoV-2 RNA is generally detectable during the acute phase of infection. The Aptima SARS-CoV-2 Assay on the [employer] Fusion system is intended for use by laboratory personnel specifically instructed and trained in the operation of the Asp[employer] and [employer] Fusion system. The Aptima SARS-CoV-2 assay is only for use under the Food and Drug Administration Emergency Use Authorization. Testing is limited to laboratories certified under the Clinical Laboratory Improvement Amendments of 1988 (CLIA), 42 U.S.C. ???263a, to perform high complexity tests. Not Detected: Not detected does not preclude SARS-CoV-2 infection and should not be used as the sole basis for patient management decisions. Not detected results must be combined with clinical observations, patient history, and epidemiological information. Performed By: #### 3 1792 #### [facility] [address] MCV (RBC) [Entitic vol] 93.6 fL Normal 82.0-98.0 [facility] Comment on above: Order Comment: The A ptima SARS-CoV-2 assay is a nucleic acid amplification test intended for the qualitative detection of RNA from SARS-CoV-2 isolated and purified from nasopharyngeal (FACULTY HEAD),oropharyngeal (OP), nasal swab, sputum, and bronchoalveolar lavage (BAL) specimens from patients with signs and symptoms of infection who are suspected of COVID-19. Results are for the identification of SARS-CoV-2 RNA. The SARS-CoV-2 RNA is generally detectable during the acute phase of infection. The Aptima SARS-CoV-2 Assay on the [employer] Fusion system is intended for use by laboratory personnel specifically instructed and trained in the operation of the Aspen and Aspen Fusion system. The Aptima SARS-CoV-2 assay is only for use under the Food and Drug Administration Emergency Use Authorization. Testing is limited to laboratories certified under the Clinical Laboratory Improvement Amendments of 1988 (CLIA), 42 U.S.C. ???263a, to perform high complexity tests. Not Detected: Not detected does not preclude SARS-CoV-2 infection and should not be used as the sole basis for patient management decisions. Not detected results must be combined with clinical observations, patient history, and epidemiological information. Performed By: #### 3 1792 #### [facility] 3000 [facility]. [address] Monocytes (Bld) [#/Vol] 0.2 10*3/uL Normal 0.1-1.0 [facility] Comment on above: Order Comment: The A ptima SARS-CoV-2 assay is a nucleic acid amplification test intended for the qualitative detection of RNA from SARS-CoV-2 isolated and purified from nasopharyngeal (FACULTY HEAD),oropharyngeal (OP), nasal swab, sputum, and bronchoalveolar lavage (BAL) specimens from patients with signs and symptoms of infection who are suspected of COVID-19. Results are for the identification of SARS-CoV-2 RNA. The SARS-CoV-2 RNA is generally detectable during the acute phase of infection. The Aptima SARS-CoV-2 Assay on the [employer] Fusion system is intended for use by laboratory personnel specifically instructed and trained in the operation of the Asp[employer] and [employer] Fusion system. The Aptima SARS-CoV-2 assay is only for use under the Food and Drug Administration Emergency Use Authorization. Testing is limited to laboratories certified under the Clinical Laboratory Improvement Amendments of 1988 (CLIA), 42 U.S.C. ???263a, to perform high complexity tests. Not Detected: Not detected does not preclude SARS-CoV-2 infection and should not be used as the sole basis for patient management decisions. Not detected results must be combined with clinical observations, patient history, and epidemiological information. Performed By: #### 3 1792 #### [facility] [address] [facility] [place] [place] [address], [facility] MONOS 13.1 % High 5.0-12.0 [facility] Comment on above: Order Comment: The A ptima SARS-CoV-2 assay is a nucleic acid amplification test intended for the qualitative detection of RNA from SARS-CoV-2 isolated and purified from nasopharyngeal (FACULTY HEAD),oropharyngeal (OP), nasal swab, sputum, and bronchoalveolar lavage (BAL) specimens from patients with signs and symptoms of infection who are suspected of COVID-19. Results are for the identification of SARS-CoV-2 RNA. The SARS-CoV-2 RNA is generally detectable during the acute phase of infection. The Aptima SARS-CoV-2 Assay on the [employer] Fusion system is intended for use by laboratory personnel specifically instructed and trained in the operation of the Aspen and [employer] Fusion system. The Aptima SARS-CoV-2 assay is only for use under the Food and Drug Administration Emergency Use Authorization. Testing is limited to laboratories certified under the Clinical Laboratory Improvement Amendments of 1988 (CLIA), 42 U.S.C. ???263a, to perform high complexity tests. Not Detected: Not detected does not preclude SARS-CoV-2 infection and should not be used as the sole basis for patient management decisions. Not detected results must be combined with clinical observations, patient history, and epidemiological information. Performed By: #### 3 1792 #### [facility] [address] [facility]. [address] Neutrophils/100 WBC (Bld) 59.6 % Normal 40.0-72.0 [facility] Comment on above: Order Comment: The A ptima SARS-CoV-2 assay is a nucleic acid amplification test intended for the qualitative detection of RNA from SARS-CoV-2 isolated and purified from nasopharyngeal (FACULTY HEAD),oropharyngeal (OP), nasal swab, sputum, and bronchoalveolar lavage (BAL) specimens from patients with signs and symptoms of infection who are suspected of COVID-19. Results are for the identification of SARS-CoV-2 RNA. The SARS-CoV-2 RNA is generally detectable during the acute phase of infection. The Aptima SARS-CoV-2 Assay on the [employer] Fusion system is intended for use by laboratory personnel specifically instructed and trained in the operation of the [employer] Fusion system. The Aptima SARS-CoV-2 assay is only for use under the Food and Drug Administration Emergency Use Authorization. Testing is limited to laboratories certified under the Clinical Laboratory Improvement Amendments of 1988 (CLIA), 42 U.S.C. ???263a, to perform high complexity tests. Not Detected: Not detected does not preclude SARS-CoV-2 infection and should not be used as the sole basis for patient management decisions. Not detected results must be combined with clinical observations, patient history, and epidemiological information. Performed By: #### 3 1792 #### [facility] [address] PLAT CNT 118 10*3/uL Low 150-400 [facility] Comment on above: Order Comment: The A ptima SARS-CoV-2 assay is a nucleic acid amplification test intended for the qualitative detection of RNA from SARS-CoV-2 isolated and purified from nasopharyngeal (FACULTY HEAD),oropharyngeal (OP), nasal swab, sputum, and bronchoalveolar lavage (BAL) specimens from patients with signs and symptoms of infection who are suspected of COVID-19. Results are for the identification of SARS-CoV-2 RNA. The SARS-CoV-2 RNA is generally detectable during the acute phase of infection. The Aptima SARS-CoV-2 Assay on the [employer] Fusion system is intended for use by laboratory personnel specifically instructed and trained in the operation of the [employer] Fusion system. The Aptima SARS-CoV-2 assay is only for use under the Food and Drug Administration Emergency Use Authorization. Testing is limited to laboratories certified under the Clinical Laboratory Improvement Amendments of 1988 (CLIA), 42 U.S.C. ???263a, to perform high complexity tests. Not Detected: Not detected does not preclude SARS-CoV-2 infection and should not be used as the sole basis for patient management decisions. Not detected results must be combined with clinical observations, patient history, and epidemiological information. Performed By: #### 3 1792 #### [facility] [address] [facility] [place] [place] [address], [facility] RBC (Bld) [#/Vol] 3.42 10*6/uL Low 3.80-5.00 [facility] Comment on above: Order Comment: The A ptima SARS-CoV-2 assay is a nucleic acid amplification test intended for the qualitative detection of RNA from SARS-CoV-2 isolated and purified from nasopharyngeal (FACULTY HEAD),oropharyngeal (OP), nasal swab, sputum, and bronchoalveolar lavage (BAL) specimens from patients with signs and symptoms of infection who are suspected of COVID-19. Results are for the identification of SARS-CoV-2 RNA. The SARS-CoV-2 RNA is generally detectable during the acute phase of infection. The Aptima SARS-CoV-2 Assay on the [employer] system is intended for use by laboratory personnel specifically instructed and trained in the operation of the [employer] Fusion system. The Aptima SARS-CoV-2 assay is only for use under the Food and Drug Administration Emergency Use Authorization. Testing is limited to laboratories certified under the Clinical Laboratory Improvement Amendments of 1988 (CLIA), 42 U.S.C. ???263a, to perform high complexity tests. Not Detected: Not detected does not preclude SARS-CoV-2 infection and should not be used as the sole basis for patient management decisions. Not detected results must be combined with clinical observations, patient history, and epidemiological information. Performed By: #### 3 1792 #### [facility] [address]OM MIJARES. [address] WBC (Bld) [#/Vol] 1.83 10*3/uL Low 4.00-10.60 [facility] Comment on above: Order Comment: The A ptima SARS-CoV-2 assay is a nucleic acid amplification test intended for the qualitative detection of RNA from SARS-CoV-2 isolated and purified from nasopharyngeal (FACULTY HEAD),oropharyngeal (OP), nasal swab, sputum, and bronchoalveolar lavage (BAL) specimens from patients with signs and symptoms of infection who are suspected of COVID-19. Results are for the identification of SARS-CoV-2 RNA. The SARS-CoV-2 RNA is generally detectable during the acute phase of infection. The Aptima SARS-CoV-2 Assay on the [employer] Fusion system is intended for use by laboratory personnel specifically instructed and trained in the operation of the [employer] system. The Aptima SARS-CoV-2 assay is only for use under the Food and Drug Administration Emergency Use Authorization. Testing is limited to laboratories certified under the Clinical Laboratory Improvement Amendments of 1988 (CLIA), 42 U.S.C. ???263a, to perform high complexity tests. Not Detected: Not detected does not preclude SARS-CoV-2 infection and should not be used as the sole basis for patient management decisions. Not detected results must be combined with clinical observations, patient history, and epidemiological information. Performed By: #### 3 1792 #### [facility] [address] [facility]. [address] FERRITINon 04-27-2021 Ferritin [Mass/Vol] 71 ng/mL Normal 11-307 [facility] Comment on above: Order Comment: Unkno wn Performed By: #### 0 0071, 55197, 67949 #### [facility] [address] [facility]. [address] HIV1 AND 2 COMBO 4Gon 2020 HIV COMBO Negative Normal NEGATIVE [facility] Comment on above: Performed By: #### 3 0625 #### [facility] [address] [facility]. [address] IMMUNOGLOB BLon 04-27-2021 IgA [Mass/Vol] 24 mg/dL Low 60-413 [facility] Comment on above: Order Comment: No: D o not add to previous draw Performed By: #### 1 69, 37565 #### [facility] [address] [facility]. [address] IgG [Mass/Vol] 295 mg/dL Low 591-1540 [facility] Comment on above: Order Comment: No: D o not add to previous draw Performed By: #### 1 69, 94311 #### [facility] [address] [facility]. [address] IgM [Mass/Vol] 19 mg/dL Low 54-285 [facility] Comment on above: Order Comment: No: D o not add to previous draw Performed By: #### 1 0070, 80904 #### [facility] [address] PARVOVIRUS B19 IGG AND IGM 6 5120on 04-27-2021 PARVO B19 IGG 3.37 IV High <=0.90 [facility] Comment on above: Order Comment: No: D o not add to previous draw Result Comment: INTE RPRETIVE INFORMATION: Parvovirus B19 Antibody, IgG 0.90 IV or less .......... Negative - No significant level of detectable Parvovirus B19 IgG antibody. 0.91 - 1.09 IV ........... Equivocal - Repeat testing in 7-21 days may be helpful. 1.10 IV or greater ....... Positive - IgG antibody to Parvovirus B19 detected which may indicate a current or past infection. The best evidence for current infection is a significant change on two appropriately timed specimens, where both tests are done in the same laboratory at the same time. PARVO B19 IGM 0.05 IV Normal <=0.90 [facility] Comment on above: Order Comment: No: D o not add to previous draw Result Comment: INTE RPRETIVE INFORMATION: Parvovirus B19 Antibody, IgM 0.90 IV or less .......... Negative - No significant level of detectable Parvovirus B19 IgM antibody. 0.91 - 1.09 IV ........... Equivocal - Repeat testing in 7-21 days may be helpful. 1.10 IV or greater ........ Positive - IgM antibody to Parvovirus B19 detected which may indicate a current or recent infection. However, low levels of IgM antibodies may occasionally persist for more than 12 months post-infection. The best evidence for current infection is a significant change on two appropriately timed specimens, where both tests are done in the same laboratory at the same time. Appearance of an IgM antibody response normally occurs 7 to 14 days after the onset of disease. Testing immediately post-exposure is of no value without a later convalescent specimen. A residual IgM response may be distinguished from early IgM response to infection by testing sera from patients three to four weeks later for changing levels of specific IgM antibodies. Performed By: [facility] [address] [place] [address] Pipeline Technician: Rylee Amaro MD PERIPHERAL SMEARon 1 Nucleated RBC/100 WBC (Bld) [Ratio] 0 % Normal 0-0 [facility] Comment on above: Performed By: #### 3 1792 #### [facility] [address] [place] [address], [facility] Order Comment: The A ptima SARS-CoV-2 assay is a nucleic acid amplification test intended for the qualitative detection of RNA from SARS-CoV-2 isolated and purified from nasopharyngeal (FACULTY HEAD),oropharyngeal (OP), nasal swab, sputum, and bronchoalveolar lavage (BAL) specimens from patients with signs and symptoms of infection who are suspected of COVID-19. Results are for the identification of SARS-CoV-2 RNA. The SARS-CoV-2 RNA is generally detectable during the acute phase of infection. The Aptima SARS-CoV-2 Assay on the Petnet and Petnet Fusion system is intended for use by laboratory personnel specifically instructed and trained in the operation of the Aspen and Petnet Fusion system. The Aptima SARS-CoV-2 assay is only for use under the Food and Drug Administration Emergency Use Authorization. Testing is limited to laboratories certified under the Clinical Laboratory Improvement Amendments of 1988 (CLIA), 42 U.S.C. ???263a, to perform high complexity tests. Not Detected: Not detected does not preclude SARS-CoV-2 infection and should not be used as the sole basis for patient management decisions. Not detected results must be combined with clinical observations, patient history, and epidemiological information. OTHER PS1 Normocytic anemia wi th occasional ovalocytes and elliptocytes. Normal [facility] Comment on above: Performed By: #### 3 1792 #### [facility] [address] [place] [address], [facility] OTHER PS2 Mild thrombocytopeni a; no evidence of hemolysis seen. Normal [facility] Comment on above: Performed By: #### 3 1792 #### [facility] [address] OTHER PS3 Normal [facility] Comment on above: Result Comment: Leuk openia including neutropenia and lymphopenia; unremarkable leukocyte morphology present. No blasts or abnormal cells identified. Performed By: #### 3 1792 #### [facility] [address] [facility]. [address] OTHER PS4 Checked by May Tate M.D. Normal [facility] Comment on above: Performed By: #### 3 2 #### [facility] [address] [facility]. [address] RHEUMATOID FACTOR SERUMon RA <20 Normal 0-20 [facility] Comment on above: Order Comment: No: D o not add to previous draw Performed By: #### 1 0070, 70201 #### [facility] [address] TIBC- INCLUDES IRONon 2020 FE SATURATION 24 % Normal 20-50 [facility] Comment on above: Order Comment: Unkno wn Performed By: #### 0 0071, 23970, 47600 #### [facility] [address] Iron [Mass/Vol] 43 ug/dL Low 50-212 [facility] Comment on above: Order Comment: Unkno wn Performed By: #### 0 0071, 62990, 76281 #### [facility] [address] [facility]. [address] TIBC 181 mcg/dL Low 250-450 [facility] Comment on above: Order Comment: Unkno wn Performed By: #### 0 0071, 91706, 01685 #### [facility] [address] [facility] [place] [address], [facility] UIBC 138 mcg/dL Low 155-355 [facility] Comment on above: Order Comment: Unkno wn Performed By: #### 0 0071, 09598, 95328 #### [facility] [address] [facility] [address] APTTon 04-25-2021 aPTT Coag (Bld) [Time] 25.2 s Normal 25.0-35.0 [facility] Comment on above: Order Comment: No: D o not add to previous draw Result Comment: ALL RESULTS MUST BE INTERPRETED WITH RESPECT TO BLOOD DRAWING ARTIFACT OR DILUTION ERROR OF ANTICOAGULANT AT THE TIME OF SAMPLING. THE APTT SHOULD NOT BE USED TO MONITOR UNFRACTIONATED HEPARIN THERAPY, THIS LABORATORY NO LONGER HAS AN ESTABLISHED THERAPEUTIC RANGE BASED ON THE APTT. IT IS RECOMMENDED THAT THE UFH - HEPARIN ASSAY (ANTI-XA ACTIVITY) BE USED FOR THIS PURPOSE. Performed By: #### 1 0070, 93826 #### [facility] [address] [facility]. [address] BASIC METABOLIC PANELon 04-05 Calcium [Mass/Vol] 8.7 mg/dL Normal 8.6-10.3 [facility] Comment on above: Order Comment: Unkno wn Performed By: #### 0 0071, 43563, 14754 #### [facility] [address] [facility] [place] [address], [facility] Chloride [Moles/Vol] 109 mmol/L High 98-107 [facility] Comment on above: Order Comment: Unkno wn Performed By: #### 0 0071, 81349, 01929 #### [facility] [address] [facility] [place] [address], [facility] CO2 [Moles/Vol] 25 mmol/L Normal 21-31 [facility] Comment on above: Order Comment: Unkno wn Performed By: #### 0 0071, 31419, 01887 #### [facility] [address] [facility] [place] [address], [facility] Creatinine [Mass/Vol] 0.99 mg/dL Normal 0.60-1.20 [facility] Comment on above: Order Comment: Unkno wn Performed By: #### 0 0071, 45726, 62409 #### [facility] [address] [place] [address], [place] eGFR- non- 57 ml/min/1.73sq m Abnormal >60 [facility] Comment on above: Order Comment: Unkno wn Performed By: #### 0 0071, 54933, 51614 #### [facility] [address] [place] [address], [place] GFR/1.73 sq M.predicted among blacks MDRD (S/P/Bld) [Vol rate/Area] mL/min/{1.73_m2} Normal >60 [facility] Comment on above: Order Comment: Unkno wn Performed By: #### 0 0071, 62078, 89795 #### [facility] [address] [place] [address], [place] Glucose [Mass/Vol] 109 mg/dL High 70-100 [facility] Comment on above: Order Comment: Unkno wn Performed By: #### 0 0071, 43290, 95521 #### [facility] [address] [place] [address], [place] Potassium [Moles/Vol] 4.8 mmol/L Normal 3.5-5.1 [facility] Comment on above: Order Comment: Unkno wn Performed By: #### 0 0071, 91375, 27033 #### [facility] [address] [place] [address], [place] Sodium [Moles/Vol] 139 mmol/L Normal 136-145 [facility] Comment on above: Order Comment: Unkno wn Performed By: #### 0 0071, 10700, 04287 #### [facility] [address] [place] [address], [place] Urea nitrogen [Mass/Vol] 8 mg/dL Normal 7-25 [facility] Comment on above: Order Comment: Unkno wn Performed By: #### 0 0071, 11546, 99745 #### [facility] [address] [place] [address], [facility] CBC COMPLETE BLOOD COUNTon 06-25-2020 Erythrocyte distribution width (RBC) [Ratio] 15.4 % High 11.5-15.0 [facility] Comment on above: Order Comment: RH Performed By: #### 3 0313 #### [facility] [address] [place] [address], [facility] Hematocrit (Bld) [Volume fraction] 35.0 % Low 36.0-45.0 [facility] Comment on above: Order Comment: RH Performed By: #### 3 0313 #### [facility] [address] [facility] [place] [address], [facility] Hemoglobin (Bld) [Mass/Vol] 10.5 g/dL Low 12.0-15.0 [facility] Comment on above: Order Comment: RH Performed By: #### 3 0313 #### [facility] [address] [facility] [place] [address], [facility] MCH (RBC) [Entitic mass] 28.6 pg Normal 27.0-33.0 [facility] Comment on above: Order Comment: RH Performed By: #### 3 0313 #### [facility] [address] [place] [address], [facility] MCHC (RBC) [Mass/Vol] 30.0 g/dL Low 32.0-35.0 [facility] Comment on above: Order Comment: RH Performed By: #### 3 0313 #### [facility] [address] [place] [address], [facility] MCV (RBC) [Entitic vol] 95.4 fL Normal 82.0-98.0 [facility] Comment on above: Order Comment: RH Performed By: #### 3 0313 #### [facility] [address] [place] [address], [facility] Nucleated RBC/100 WBC (Bld) [Ratio] 0 % Normal 0-0 [facility] Comment on above: Order Comment: RH Performed By: #### 3 0313 #### [facility] [address] [facility] [address], [facility] PLAT CNT 124 10*3/uL Low 150-400 [facility] Comment on above: Order Comment: RH Performed By: #### 3 0313 #### [facility] [address] [facility] [place] [address], [facility] RBC (Bld) [#/Vol] 3.67 10*6/uL Low 3.80-5.00 [facility] Comment on above: Order Comment: RH Performed By: #### 3 0313 #### [facility] [address] [facility] [place] [address], [facility] WBC (Bld) [#/Vol] 1.90 10*3/uL Low 4.00-10.60 [facility] Comment on above: Order Comment: RH Performed By: #### 3 0313 #### [facility] [address] [place] [address], [facility] MAGNESIUM BLOODon 04-25-2021 Magnesium [Mass/Vol] 2.0 mg/dL Normal 1.9-2.7 [facility] Comment on above: Order Comment: Unkno wn Performed By: #### 0 0071, 43998, 78920 #### [facility] [address] [facility] [place] [address], [facility] PHOSPHORUS BLOODon 1 Phosphate [Mass/Vol] 2.8 mg/dL Normal 2.5-5.0 [facility] Comment on above: Order Comment: Unkno wn Performed By: #### 0 0071, 35587, 51497 #### [facility] [address] PROTHROMBIN TIMEon 1 INR Coag (PPP) [Relative time] 0.95 {INR} Normal 0.91-1.16 [facility] Comment on above: Order Comment: No: D o not add to previous draw Result Comment: ACCC P RECOMMENDED INR FOR WARFARIN THERAPY ------- CONDITION INR PROPHYLAXIS OF VENOUS THROMBOSIS 2-3 (HIGH-RISK SURGERY) TREATMENT OF VENOUS THROMBOSIS 2-3 TREATMENT OF PULMONARY EMBOLISM 2-3 PREVENTION OF SYSTEMIC EMBOLISM: 2-3 ACUTE MYOCARDIAL INFARCTION TISSUE HEART VALVES VALVULAR HEART DISEASE ATRIAL FIBRILLATION RECURRENT SYSTEMIC EMBOLISM MECHANICAL HEART VALVE 2.5-3.5 FROM: ORAL ANTICOAGULANTS. MECHANISM OF ACTION, CLINICAL EFFECTIVENESS, AND OPTIMAL THERAPEUTIC RANGE. CHEST 1995;108:231S-246S. Performed By: #### 1 0070, 62014 #### [facility] [address] [facility] [place] [address], [facility] PT Coag (PPP) [Time] 12.6 s Normal 12.3-14.8 [facility] Comment on above: Order Comment: No: D o not add to previous draw Result Comment: ALL RESULTS MUST BE INTERPRETED WITH RESPECT TO BLOOD DRAWING ARTIFACT OR DILUTION ERROR OF ANTICOAGULANT AT THE TIME OF SAMPLING. Performed By: #### 1 0070, 07184 #### [facility] [address] *BLOOD CULTUREon 04-24-2021 *BLOOD CULTURE Clinical Report: (D) Specimen: BLOOD CULTURE Collected: 04/24/2021 00:50 Status: Final Last Updated: 04/29/2021 06:31 (1) RH CULT RES (Final) No Growth Day 5 Normal [facility] Comment on above: Order Comment: RH Performed By: #### 3 0313 #### [facility] [address] *BLOOD CULTURE Clinical Report: (D) Specimen: BLOOD CULTURE Collected: 04/24/2021 00:45 Status: Final Last Updated: 04/29/2021 06:31 (1) LAC CULT RES (Final) No Growth Day 5 Normal [facility] Comment on above: Order Comment: The A ptima SARS-CoV-2 assay is a nucleic acid amplification test intended for the qualitative detection of RNA from SARS-CoV-2 isolated and purified from nasopharyngeal (FACULTY HEAD),oropharyngeal (OP), nasal swab, sputum, and bronchoalveolar lavage (BAL) specimens from patients with signs and symptoms of infection who are suspected of COVID-19. Results are for the identification of SARS-CoV-2 RNA. The SARS-CoV-2 RNA is generally detectable during the acute phase of infection. The Aptima SARS-CoV-2 Assay on the Petnet and Petnet Fusion system is intended for use by laboratory personnel specifically instructed and trained in the operation of the Aspen and Petnet Fusion system. The Aptima SARS-CoV-2 assay is only for use under the Food and Drug Administration Emergency Use Authorization. Testing is limited to laboratories certified under the Clinical Laboratory Improvement Amendments of 1988 (CLIA), 42 U.S.C. ???263a, to perform high complexity tests. Not Detected: Not detected does not preclude SARS-CoV-2 infection and should not be used as the sole basis for patient management decisions. Not detected results must be combined with clinical observations, patient history, and epidemiological information. Performed By: #### 3 1792 #### [facility] [address] ALCOHOLon 04-24-2021 Ethanol [Mass/Vol] Not detected Normal [facility] Comment on above: Result Comment: Divi de by 1000 to convert mg/dL to percent. Example: 100mg/dL = 0.1%. Performed By: #### 1 0070, 85364 #### [facility] [address] [place] [address], [facility] AMMONIA BLOODon 04-24-2021 Ammonia (P) [Moles/Vol] 31 umol/L Normal 16-53 [facility] Comment on above: Order Comment: Unkno wn Performed By: #### 0 0071, 23340, [address] #### [place] [address], [facility] CT ABDOMEN W IV CONTRASTon 1 06-24-2020 CT ABDOMEN W IV CONTRAST [facility] Department of Radiology [address] [place] [id number] == Patient Name: ALFIE HOGAN : 1960 Sex: F Age: Race: White Pt. Location: [facility] Patient Status: E Ordered Date: 04/23/2021 8:45:00 PM Completed Date: 04/23/2021 11:44 PM Requesting Provider: ADRIÁN LIMA Attending Provider: ADRIÁN LIMA Report Copy To: Signs & Symptoms: Other History: See Comments Comments: Obstruction, AMS, hx of constipation Exam: CT ABDOMEN W IV CONTRAST == CT ABDOMEN W IV CONTRAST 04/23/2021 11:44 PM CLINICAL INDICATION: Other TECHNOLOGIST COMMENTS: Generalized body pain with SOB today. H/O multiple falls in last week. QUESTION FOR THE RADIOLOGIST: Obstruction, AMS, hx of constipation PROTOCOL: Axial CT images of the abdomen were obtained with IV contrast. COMPARISON: 04/10/2021 CONTRAST: Oral: None IV: 100 mL Omnipaque 350 FINDINGS: CT chest performed concurrently and dictated separately. No abdominal wall abnormalities. No acute osseous abnormalities. Posterior lumbosacral fusion hardware and bilateral total hip arthroplasty. Moderate vascular calcifications within the aorta and its branches. Unchanged 1.4 cm hypoattenuating lesion in segment Maria D. The gallbladder is surgically absent. Redemonstration of peripherally enhancing 1.5 cm exophytic lesion in the inferior pole of the right kidney. Multiple bilateral hypoattenuating lesions are too small to characterize, but likely represent simple cysts. The adrenal glands are unremarkable. The spleen is unremarkable. The pancreas is unremarkable. Evaluation of the pelvis is degraded secondary to streak artifact from bilateral hip prostheses, but there are no identified masses. The bladder and ureters are unremarkable. The bowel is unremarkable. There is no evidence of free air or bowel obstruction. The appendix is surgically absent. No enlarged lymph nodes. IMPRESSION: 1. No CT evidence of acute pathology within the abdomen or pelvis. 2. Peripherally enhancing 1.5 cm exophytic lesion in the inferior pole of the right kidney. Recommend further evaluation with contrast-enhanced MRI. 3. Nonspecific 1.4 cm hypoattenuating lesion in segment Maria D of the liver, which may represent a cyst or hemangioma. Consider further evaluation with MRI if there is clinical concern for primary or metastatic malignancy. Approved by:Yuri Su04/24/2021 12:09 AM. I, Beck Jon,have reviewed the image(s) and agree with the findings in this report. Electronically signed: Beck Jon. Transcribed by: [email or web address], User Resident: YURI TRUJILLO Electronically Signed by: BECK JON @ 04/24/2021 12:20 AM I personally read this/these film(s) with this resident Normal [facility] Comment on above: Order Comment: Obstr uction, AMS, hx of constipation CT BRAIN WO CONTRASTon 04-24 CT BRAIN WO CONTRAST [facility] Department of Radiology [address] [place] [address] == Patient Name: ALFIE HOGAN : 1960 Sex: F Age: Race: White Pt. Location: [facility] Patient Status: E Ordered Date: 04/23/2021 8:30:00 PM Completed Date: 04/23/2021 11:19 PM Requesting Provider: ADRIÁN LIMA Attending Provider: ADRIÁN LIMA Report Copy To: Signs & Symptoms: Other History: See Comments Comments: CVA, AMS, hx of Wernickes Encephalopathy Exam: CT BRAIN WO CONTRAST == CT BRAIN WO CONTRAST 04/23/2021 11:19 PM CLINICAL INDICATIONS: Other TECHNOLOGIST COMMENTS: Headache and generalized weakness s/p multiple falls. QUESTION FOR THE RADIOLOGIST: CVA, AMS, hx of Wernickes Encephalopathy PROTOCOL: Axial CT images of the head were obtained without IV contrast. TECHNIQUE: Multidetector CT axial slices of the brain without IV contrast. Multiplanar reformats were performed and viewed on a separate workstation and reviewed to further define anatomy and possible pathology. All CT scans at this facility use dose modulation, iterative reconstruction, and/or weight based dosing when appropriate to reduce radiation dose to as low as reasonably achievable COMPARISON: 04/10/2021 FINDINGS: No midline shift, mass effect, acute intracranial hemorrhage, or evidence of acute large vessel ischemia/infarct. Ventricular system size is nondilated and age compatible. Diffuse cortical atrophy, most pronounced in the bilateral frontal lobes. Brainstem and cerebellum are unremarkable. Visualized infratemporal soft tissues show no acute abnormality. Fluid and/or mucosal thickening in the bilateral sphenoid sinuses and ethmoid air cells. Fluid within the bilateral mastoid air cells. Osseous structures in the skull base and calvarium show no acute abnormality. IMPRESSION: 1. No acute intracranial findings. 2. Fluid and/or mucosal thickening in the paranasal sinuses and mastoid air cells. 3. Diffuse cortical atrophy, most pronounced in the bilateral frontal lobes. Approved by:Yuri Su11/ 11:37 PM. I, Beck Jon,have reviewed the image(s) and agree with the findings in this report. Electronically signed: Beck Jon. Transcribed by: [email or web address], User Resident: YURI TRUJILLO Electronically Signed by: BEKC JON @ 04/23/2021 11:43 PM I personally read this/these film(s) with this resident Normal [facility] Comment on above: Order Comment: CVA, AMS, hx of Wernickes Encephalopathy CT LUMBAR SPINE WO CONTRASTo n 04-24-2021 CT LUMBAR SPINE WO CONTRAST [facility] Department of Radiology [address] [place] [id number] == Patient Name: ALFIE HOGAN : 1960 Sex: F Age: Race: White Pt. Location: [facility] Patient Status: E Ordered Date: 04/23/2021 8:50:00 PM Completed Date: 04/23/2021 11:45 PM Requesting Provider: ADRIÁN LIMA Attending Provider: ADRIÁN LIMA Report Copy To: Signs & Symptoms: Back Pain (specify level) History: See Comments Comments: Fractures, thoracolumbar tenderness Exam: CT LUMBAR SPINE WO CONTRAST == CT LUMBAR SPINE WO CONTRAST HISTORY: Back pain status post fall COMPARISON: None TECHNIQUE: Multi detector CT axial slices of the lumbar spine were obtained without IV contrast. CT was performed with one or more of the following dose reduction techniques: Automated exposure control, adjustment of the mA and/or kV according to patient size, or use of iterative reconstruction technique. FINDINGS: Posterior lumbar fusion hardware from L3-L5. Levocurvature of the thoracolumbar spine. No evidence of spondylolisthesis. The vertebral body heights are preserved. Intervertebral disc height loss throughout the lumbar spine with vacuum disc phenomenon at T12-L1, L1-2, L2-3, and L5-S1. Endplate and facet joint degenerative changes throughout the lumbar spine. No acute fracture or destructive osseous lesion. Bilateral neural foraminal narrowing at L4-5 and L5-S1. Refer to concurrently performed CT abdomen pelvis performed extra spinal findings. IMPRESSION: Degenerative changes of the lumbar spine without evidence of acute osseous abnormality. Approved by:Yuri Su04/24/2021 12:26 AM. I, Beck Jon,have reviewed the image(s) and agree with the findings in this report. Electronically signed: Beck Jon. Transcribed by: [email or web address], User Resident: YURI TRUJILLO Electronically Signed by: BECK JON @ 04/24/2021 12:41 AM I personally read this/these film(s) with this resident Normal [facility] Comment on above: Order Comment: Fract ures, thoracolumbar tenderness CT THORACIC SPINE WITHOUT CO NTRASTon 04-24-2021 CT THORACIC SPINE WITHOUT CONTRAST [facility] Department of Radiology [address] [place] [id number] == Patient Name: ALFIE HOGAN : 1960 Sex: F Age: Race: White Pt. Location: [facility] Patient Status: E Ordered Date: 04/23/2021 8:45:00 PM Completed Date: 04/23/2021 11:45 PM Requesting Provider: ADRIÁN LIMA Attending Provider: ADRIÁN LIMA Report Copy To: Signs & Symptoms: Back Pain (specify level) History: See Comments Comments: Fractures, mid thoracic tenderness Exam: CT THORACIC SPINE WITHOUT CONTRAST == CT THORACIC SPINE WITHOUT CONTRAST 04/23/2021 11:45 PM CLINICAL INDICATIONS: Back Pain (specify level) TECHNOLOGIST COMMENTS: Mid and low back pain s/p multiple falls within last week. QUESTION FOR RADIOLOGIST: Fractures, mid thoracic tenderness PROTOCOL: Volume acquisition with MIP, multiplanar reformats and 3D reconstructed images were generated on an independent workstation and reviewed to further define anatomy and possible pathology. COMPARISON: None TECHNIQUE: Axial images were obtained through the thoracic spine. Coronal and sagittal reconstructions provided. All CT scans at this facility use dose modulation, iterative reconstruction, and/or weight based dosing when appropriate to reduce radiation dose to as low as reasonably achievable. FINDINGS: The vertebral body heights are within normal limits. The alignment of the vertebral bodies, facet joints, and spinous processes is unremarkable. 4 Dextrocurvature of the thoracic spine. Endplate degenerative changes, osteophyte formation, and facet joint degenerative changes throughout the thoracic spine without acute osseous abnormality. Refer to concurrently performed CTA chest for nonosseous findings. IMPRESSION: Dextrocurvature and degenerative changes of the thoracic spine without acute osseous abnormality. Approved by:Yuri Su04/24/2021 12:20 AM. I, Beck Jon,have reviewed the image(s) and agree with the findings in this report. Electronically signed: Beck Jon. Transcribed by: [email or web address], User Resident: YURI TRUJILLO Electronically Signed by: BECK OJN @ 04/24/2021 12:25 AM I personally read this/these film(s) with this resident Normal [facility] Comment on above: Order Comment: Fract ures, mid thoracic tenderness CTA CHESTon 04-24-2021 CTA CHEST [facility] Department of Radiology [address] [place] [id number] == Patient Name: ALFIE HOGAN : 1960 Sex: F Age: Race: White Pt. Location: [facility] Patient Status: E Ordered Date: 04/23/2021 8:45:00 PM Completed Date: 04/23/2021 11:44 PM Requesting Provider: ADRIÁN LIMA Attending Provider: ADRIÁN LIMA Report Copy To: Signs & Symptoms: Bronchiectasis History: See Comments Comments: Pulmonary Embolism, shortness of breath, AMS, syncope and collapse Exam: CTA CHEST == CTA CHEST HISTORY: Shortness of breath COMPARISON: None TECHNIQUE: Contiguous axial images are obtained of the Chest with 100 mL of Omnipaque 350 IV contrast. Coronal and sagittal reconstructions were performed and reviewed. Sagittal and coronal reformatted images with 3-D Maximum intensity projection reconstructions constructed under concurrent physician supervision on a separate workstation. Automatic exposure control was utilized. All CT scans at this facility use dose modulation, iterative reconstruction, and/or weight based dosing when appropriate to reduce radiation dose to as low as reasonably achievable. FINDINGS: The visualized thyroid is unremarkable. Right-sided Morgagni hernia. No adrenal mass or splenomegaly. No acute osseous abnormality. No cardiomegaly or pericardial effusion. The aorta is nonaneurysmal and without dissection. Severe coronary artery calcifications in the LAD. No enlarged mediastinal or hilar lymph nodes. Filling defect within the right lower lobe bronchi with associated consolidation on the right lower lobe. Atelectasis in the left lower lobe. No pneumothorax or pleural effusion. No filling defects of the main pulmonary arteries, segmental branches, or major subsegmental branches to suggest emboli. Ectasia of the main pulmonary artery measuring up to 3.3 cm. IMPRESSION: 1. No pulmonary embolism. 2. Right lower lobe pneumonia. 3. Ectasia of the main pulmonary artery measuring up to 3.3 cm, which can be seen with pulmonary hypertension. Approved by:Yuri Su04/23/2021 11:56 PM. I, Beck Jon,have reviewed the image(s) and agree with the findings in this report. Electronically signed: Beck Jon. Transcribed by: [email or web address], User Resident: YURI TRUJILLO Electronically Signed by: BECK JON @ 04/24/2021 12:18 AM I personally read this/these film(s) with this resident Normal [facility] Comment on above: Order Comment: Pulmo nary Embolism, shortness of breath, AMS, syncope and collapse CTA HEADon 04-24-2021 CTA HEAD [facility] Department of Radiology [address] [place] [phone] == Patient Name: ALFIE HOGAN : 1960 Sex: F Age: Race: White Pt. Location: [facility] Patient Status: E Ordered Date: 04/23/2021 8:30:00 PM Completed Date: 04/23/2021 11:19 PM Requesting Provider: ADRIÁN LIMA Attending Provider: ADRIÁN LIMA Report Copy To: Signs & Symptoms: Headache History: See Comments Comments: Bleed, syncope, hx of falls, Exam: CTA HEAD == CTA head HISTORY: Headache. Generalized weakness. COMPARISON: 04/10/2021 TECHNIQUE: CT angiogram performed following administration of 100 mL Omnipaque 350 intravenous contrast. Coronal, sagittal, and 3-D volume rendered maximum intensity projection images generated and reviewed under concurrent physician supervision. Automated exposure control utilized. All CT scans at this facility use dose modulation, iterative reconstruction, and/or weight based dosing when appropriate to reduce radiation dose to as low as reasonably achievable. FINDINGS: The superior cerebellar arteries, posterior inferior cerebellar arteries, and the basilar artery are within normal limits. The posterior cerebellar arteries are unremarkable. The intracranial segments of the internal carotid arteries are within normal limits. There are normal anterior and middle cerebral arteries. Anterior communicating artery is patent. Posterior communicating artery is present on the right and absent on the left. The deep venous system and dural venous systems appear to be patent. IMPRESSION: No evidence of focal stenosis, aneurysmal dilatation, dissection, or occlusion of the intracranial vessels. Approved by:Yuri Su04/23/2021 11:47 PM. I, Beck Jon,have reviewed the image(s) and agree with the findings in this report. Electronically signed: Beck Jon. Transcribed by: [email or web address], User Resident: YURI TRUJILLO Electronically Signed by: BECK JON @ 04/23/2021 11:49 PM I personally read this/these film(s) with this resident Normal [facility] Comment on above: Order Comment: Bleed , syncope, hx of falls, CTA NECKon 04-24-2021 CTA NECK [facility] Department of Radiology [address] [place] [phone] == Patient Name: ALFIE HOGAN : 1960 Sex: F Age: Race: White Pt. Location: [facility] Patient Status: E Ordered Date: 04/23/2021 8:30:00 PM Completed Date: 04/23/2021 11:19 PM Requesting Provider: ADRIÁN LIMA Attending Provider: ADRIÁN LIMA Report Copy To: Signs & Symptoms: Carotid Stenosis History: See Comments Comments: syncope, hx of falls Exam: CTA NECK == Clinical History:Generalized weakness Procedure: CT angiography of the carotid arteries was performed. Thin axial images through the carotid arteries were obtained following the intravenous administration of contrast material. Coronal, sagittal, and 3-D volume rendered maximum intensity projection images were generated and reviewed under concurrent physician supervision. Automated exposure control was utilized. The [place] Symptomatic Carotid Endarterectomy Trial (NASCET) method for calculating the degree of stenosis was utilized for stenosis measurements. Comparison: None Findings: The visualized portions of the aortic arch are widely patent. The origins and great vessels are also widely patent and unremarkable. Portions of the brachiocephalic artery and proximal right common carotid artery are obscured by artifact from dense contrast in adjacent venous system. The common, internal, and external carotid arteries are widely patent bilaterally. There is 0% stenosis in either side. There is extreme tortuosity of the internal carotid arteries bilaterally. The vertebral arteries are patent bilaterally. IMPRESSION: Normal CT angiogram of the carotid arteries with no hemodynamically significant stenoses identified. All CT scans at this facility use dose modulation, iterative reconstruction, and/or weight based dosing when appropriate to reduce radiation dose to as low as reasonably achievable. Electronically signed: Beck Jon. Transcribed by: [email or web address], User Resident: Electronically Signed by: BECK JON @ 04/23/2021 11:40 PM Normal [facility] Comment on above: Order Comment: synco pe, hx of falls Ed Urine Tox Screen (compoun d)on 04-24-2021 50 THC Positive Abnormal NEGATIVE [facility] Comment on above: Performed By: #### 1 0070, [id number] #### [address] BARBITURATES Negative Normal NEGATIVE [facility] Comment on above: Performed By: #### 1 69, #### [facility] [address] [place] [address], [place] BENZODIAZEPINES Negative Normal NEGATIVE [facility] Comment on above: Performed By: #### 1 69, #### [facility] [address] [place] [address], [place] COCAINE Negative Normal NEGATIVE [facility] Comment on above: Performed By: #### 1 69, #### [facility] [address] [place] [address], [place] METHADONE Negative Normal NEGATIVE [facility] Comment on above: Performed By: #### 1 #### [facility] [address] [place] [address], [place] MONO AMPHET Negative Normal NEGATIVE [facility] Comment on above: Performed By: #### 1 82659 #### [facility] [address] [place] [address], [place] OPIATES Negative Normal NEGATIVE [facility] Comment on above: Performed By: #### 1 69, 07775 #### [facility] [address] [place] [address], [place] PHENCYCLIDINE Negative Normal NEGATIVE [facility] Comment on above: Performed By: #### 1 69, 54044 #### [facility] [address] [place] [address], [place] PROPOXYPHENE Negative Normal NEGATIVE [facility] Comment on above: Performed By: #### 1 69, 29877 #### [facility] [address] [place] [address], [place] TRICYCLICS Positive Abnormal NEGATIVE [facility] Comment on above: Performed By: #### 1 69, 96386 #### [facility] [address] [facility] [place]. [address] FOLATE SERUMon 04-24-2021 SERUM FOLATE 44.60 ng/mL Normal 6.60-1000.00 [facility] Comment on above: Order Comment: Unkno wn Result Comment: Norm al range reflects World Health Organization International Standard Performed By: #### 0 0071, 15840, 50640 #### [facility] [address] [facility] [place] [address], [facility] FREE T4on 04-24-2021 Free T4 [Mass/Vol] 0.74 ng/dL Normal 0.71-1.85 [facility] Comment on above: Performed By: #### 0 0071, 73040, 29740 #### [facility] [address] [facility]. [address] LACTATE WITH REFLEXon 2020 Lactate [Moles/Vol] 2.5 mmol/L High .5-2.2 [facility] Comment on above: Order Comment: No: D o not add to previous draw Performed By: #### 1 0070, 79248 #### [facility] [address] TSH3 WITH REFLEX FT4on 04-24 TSH 3RD GENERATION 0.30 uIU/mL Low 0.34-5.60 [facility] Comment on above: Order Comment: Unkno wn Performed By: #### 0 0071, 35462, 98368 #### [facility] [address] [facility] [place] [address], [facility] URINALYSIS REFLEXon 04-24-20 Appearance (U) CLEAR Normal CLEAR [facility] Comment on above: Order Comment: Crite alem for reflexing a culture was not met. Please call the lab [id number] within 24 hours of collection time if culture is needed Performed By: #### 3 7549 #### [facility] [address] [facility] [place] [address], [facility] Bilirubin Ql (U) Negative Normal NEGATIVE [facility] Comment on above: Order Comment: Crite laem for reflexing a culture was not met. Please call the lab [id number] within 24 hours of collection time if culture is needed Performed By: #### 3 1839 #### [facility] [address] [place] [address], [place] Color (U) YELLOW Normal YELLOW [facility] Comment on above: Order Comment: Crite alem for reflexing a culture was not met. Please call the lab [id number] within 24 hours of collection time if culture is needed Performed By: #### 3 1839 #### [facility] [address] [place] [address], [place] Glucose Ql (U) Negative Normal NEGATIVE [facility] Comment on above: Order Comment: Crite alem for reflexing a culture was not met. Please call the lab [id number] within 24 hours of collection time if culture is needed Performed By: #### 3 1839 #### [facility] [address] [place] [address], [place] Hemoglobin Ql (U) Negative Normal NEGATIVE [facility] Comment on above: Order Comment: Crite alem for reflexing a culture was not met. Please call the lab [id number] within 24 hours of collection time if culture is needed Performed By: #### 3 1839 #### [facility] [address] [place] [address], [place] KETONE Negative Normal NEGATIVE [facility] Comment on above: Order Comment: Crite alem for reflexing a culture was not met. Please call the lab [id number] within 24 hours of collection time if culture is needed Performed By: #### 3 1839 #### [facility] [address] [place] [address], [place] LEUK CRISTO Negative Normal NEGATIVE [facility] Comment on above: Order Comment: Crite alem for reflexing a culture was not met. Please call the lab [id number] within 24 hours of collection time if culture is needed Performed By: #### 3 1839 #### [facility] [address] [place] [address], [facility] MICRO NOT DONE Normal [facility] Comment on above: Order Comment: Crite alem for reflexing a culture was not met. Please call the lab [id number] within 24 hours of collection time if culture is needed Result Comment: Micr oscopics not performed on urines with negative chemical reactions unless requested in original order Performed By: #### 3 1839 #### [facility] [address] [facility] [place] [address], [facility] Nitrite Ql (U) Negative Normal NEGATIVE [facility] Comment on above: Order Comment: Crite alem for reflexing a culture was not met. Please call the lab [id number] within 24 hours of collection time if culture is needed Performed By: #### 3 1839 #### [facility] [address] [facility] [place] [address], [facility] pH (U) 5.0 [pH] Normal 5.0-8.0 [facility] Comment on above: Order Comment: Crite alem for reflexing a culture was not met. Please call the lab [id number] within 24 hours of collection time if culture is needed Performed By: #### 3 1839 #### [facility] [address] [facility] [place] [address], [facility] Protein Ql (U) Negative Normal NEGATIVE [facility] Comment on above: Order Comment: Crite alem for reflexing a culture was not met. Please call the lab [id number] within 24 hours of collection time if culture is needed Performed By: #### 3 1839 #### [facility] [address] [facility] [place] [address], [facility] SPEC GRAV 1.068 High 1.015-1.020 [facility] Comment on above: Order Comment: Crite alem for reflexing a culture was not met. Please call the lab [id number] within 24 hours of collection time if culture is needed Performed By: #### 3 1839 #### [facility] [address] [facility] [place] [address], [facility] VITAMIN B12on 04-24-2021 Cobalamin (Vitamin B12) [Mass/Vol] 944 pg/mL High 180-914 [facility] Comment on above: Order Comment: Deb wn Result Comment: REFE RENCE RANGES: 180-914 pg/mL Normal 145-179 pg/mL Indeterminate <145 pg/mL Deficient Performed By: #### 0 0071, 24919, 21910 #### [facility] [address] VITAMIN B1WB 14597ng 021 VITAMIN B1 WB 106 nmol/L Normal 70-180 [facility] Comment on above: Order Comment: Unkno wn Result Comment: INTE RPRETIVE INFORMATION: Vitamin B1, Whole Blood This assay measures the concentration of thiamine diphosphate (TDP), the primary active form of vitamin B1. Approximately 90 percent of vitamin B1 present in whole blood is TDP. Thiamine and thiamine monophosphate, which comprise the remaining 10 percent, are not measured. This test was developed and its performance characteristics determined by [facility]. It has not been cleared or approved by the [place] Food and Drug Administration. This test was performed in a CLIA certified laboratory and is intended for clinical purposes. Performed By: [facility] [address] [place] [address] Pipeline Technician: Rylee Amaro MD lactate w/reflex #2on 2020 Lactate [Moles/Vol] 1.3 mmol/L Normal .5-2.2 [facility] Comment on above: Order Comment: Deb wn Performed By: #### 0 0071, 20806, 01752 #### [facility] [address] [place] [address], [facility] AMMONIA BLOODon 04-23-2021 Ammonia (P) [Moles/Vol] 26 umol/L Normal 16-53 [facility] Comment on above: Performed By: #### 0 0071, 90925, 20959 #### [facility] [address] [place] [address], [facility] CBC W/DIFFon 04-23-2021 ABS IMM GRANS 0.0 10*3/uL Normal 0.0-0.2 [facility] Comment on above: Performed By: #### 3 0313 #### [facility] [address] [facility] [place] [address], [facility] ABS NEUTROPHILS 1.9 10*3/uL Normal 1.6-7.6 [facility] Comment on above: Performed By: #### 3 0313 #### [facility] [address] [facility] [place] [address], [facility] Basophils (Bld) [#/Vol] 0.0 10*3/uL Normal 0.0-0.2 [facility] Comment on above: Performed By: #### 3 0313 #### [facility] [address] [place] [address], [facility] Basophils/100 WBC (Bld) 0.0 % Normal 0.0-1.0 [facility] Comment on above: Performed By: #### 3 0313 #### [facility] [address] [place] [place] [address], [facility] Eosinophils (Bld) [#/Vol] 0.0 10*3/uL Normal 0.0-0.5 [facility] Comment on above: Performed By: #### 3 0313 #### [facility] [address] [place] [place] [address], [facility] Eosinophils/100 WBC (Bld) 0.0 % Normal 0.0-6.0 [facility] Comment on above: Performed By: #### 3 0313 #### [facility] [address] [place] [address], [facility] Erythrocyte distribution width (RBC) [Ratio] 15.5 % High 11.5-15.0 [facility] Comment on above: Performed By: #### 3 0313 #### [facility] [address] [facility] [address], [facility] Hematocrit (Bld) [Volume fraction] 39.5 % Normal 36.0-45.0 [facility] Comment on above: Performed By: #### 3 0313 #### [facility] [address] [facility] [place] [address], [facility] Hemoglobin (Bld) [Mass/Vol] 11.9 g/dL Low 12.0-15.0 [facility] Comment on above: Performed By: #### 3 0313 #### [facility] [address] [facility] [place] [address], [facility] IMMATURE GRANS 0.4 % Normal 0.0-1.0 [facility] Comment on above: Performed By: #### 3 0313 #### [facility] [address] [place] [address], [facility] Lymphocytes (Bld) [#/Vol] 0.4 10*3/uL Low 1.2-4.0 [facility] Comment on above: Performed By: #### 3 0313 #### [facility] [address] [place] [address], [facility] Lymphocytes/100 WBC (Bld) 15.9 % Low 20.0-45.0 [facility] Comment on above: Performed By: #### 3 0313 #### [facility] [address] [place] [address], [facility] MCH (RBC) [Entitic mass] 28.3 pg Normal 27.0-33.0 [facility] Comment on above: Performed By: #### 3 0313 #### [facility] [address] MCHC (RBC) [Mass/Vol] 30.1 g/dL Low 32.0-35.0 [facility] Comment on above: Performed By: #### 3 0313 #### [facility] [address] [place] [place] [address], [facility] MCV (RBC) [Entitic vol] 93.8 fL Normal 82.0-98.0 [facility] Comment on above: Performed By: #### 3 3 #### [facility] [address] [place] [address], [facility] Monocytes (Bld) [#/Vol] 0.1 10*3/uL Normal 0.1-1.0 [facility] Comment on above: Performed By: #### 3 3 #### [facility] [address] [place] [address], [facility] MONOS 5.4 % Normal 5.0-12.0 [facility] Comment on above: Performed By: #### 3 3 #### [facility] [address] [place] [address], [facility] Neutrophils/100 WBC (Bld) 78.3 % High 40.0-72.0 [facility] Comment on above: Performed By: #### 3 3 #### [facility] [address] Nucleated RBC/100 WBC (Bld) [Ratio] 0 % Normal 0-0 [facility] Comment on above: Performed By: #### 3 3 #### [facility] [address] [place] [address], [facility] PLAT CNT 117 10*3/uL Low 150-400 [facility] Comment on above: Performed By: #### 3 3 #### [facility] [address] [place] [address], [facility] RBC (Bld) [#/Vol] 4.21 10*6/uL Normal 3.80-5.00 [facility] Comment on above: Performed By: #### 3 3 #### [facility] [address] [place] [address], [facility] WBC (Bld) [#/Vol] 2.39 10*3/uL Low 4.00-10.60 [facility] Comment on above: Performed By: #### 3 3 #### [facility] [address] [place] [address], [facility] COMP METABOLIC PANELon 04-23 Albumin [Mass/Vol] 3.7 g/dL Normal 3.5-5.7 [facility] Comment on above: Performed By: #### 0 0071, 34695, 96514 #### [facility] [address] [place] [address], [facility] ALKALINE PHOSPH 118 IU/L High 34-104 [facility] Comment on above: Performed By: #### 0 0071, 04295, 36616 #### [facility] [address] [place] [address], [facility] ALT [Catalytic activity/Vol] 22 U/L Normal 7-52 [facility] Comment on above: Performed By: #### 0 0071, 29805, 48146 #### [facility] [address] [place] [address], [facility] AST [Catalytic activity/Vol] 24 U/L Normal 13-39 [facility] Comment on above: Performed By: #### 0 0071, 27765, 97445 #### [facility] [address] [place] [address], [place] Bilirubin [Mass/Vol] 0.6 mg/dL Normal 0.3-1.0 [facility] Comment on above: Performed By: #### 0 0071, 26878, 74061 #### [facility] [address] [place], [place] [address], [place] Calcium [Mass/Vol] 9.2 mg/dL Normal 8.6-10.3 [facility] Comment on above: Performed By: #### 0 0071, 16249, 29783 #### [facility] [address] [place] [address], [place] Chloride [Moles/Vol] 107 mmol/L Normal 98-107 [facility] Comment on above: Performed By: #### 0 0071, 30391, 96013 #### [facility] [address] [place] [address], [place] CO2 [Moles/Vol] 22 mmol/L Normal 21-31 [facility] Comment on above: Performed By: #### 0 0071, 97114, 96844 #### [facility] [address] [place] [address], [place] Creatinine [Mass/Vol] 1.25 mg/dL High 0.60-1.20 [facility] Comment on above: Performed By: #### 0 0071, 79754, 38904 #### [facility] [address] [place] [address], [place] eGFR- 53 ml/min/1.73sq m Abnormal >60 [facility] Comment on above: Performed By: #### 0 0071, 27996, 89948 #### [facility] [address] [place] [address], [place] eGFR- non- 44 ml/min/1.73sq m Abnormal >60 [facility] Comment on above: Performed By: #### 0 0071, 98535, 42367 #### [facility] [address] [place] [address], [place] Glucose [Mass/Vol] 193 mg/dL High 70-100 [facility] Comment on above: Performed By: #### 0 0071, 83356, 26617 #### [facility] [address] [place] [address], [place] Potassium [Moles/Vol] 4.5 mmol/L Normal 3.5-5.1 [facility] Comment on above: Performed By: #### 0 0071, 83620, 23812 #### [facility] [address] [place] [address], [place] Protein [Mass/Vol] 5.3 g/dL Low 6.0-8.3 [facility] Comment on above: Performed By: #### 0 0071, 91525, 17135 #### [facility] [address] [facility] [place] [address], [facility] Sodium [Moles/Vol] 137 mmol/L Normal 136-145 [facility] Comment on above: Performed By: #### 0 0071, 77157, 16126 #### [facility] [address] [facility] [place] [address], [facility] Urea nitrogen [Mass/Vol] 11 mg/dL Normal 7-25 [facility] Comment on above: Performed By: #### 0 0071, 40571, 95032 #### [facility] [address] MAGNESIUM BLOODon 04-23-2021 Magnesium [Mass/Vol] 1.6 mg/dL Low 1.9-2.7 [facility] Comment on above: Performed By: #### 0 0071, 74708, 23411 #### [facility] [address] [place], [place] [id number] [place] [address] PORTABLE CHEST 1 VIEWon 04-05 PORTABLE CHEST 1 VIEW [facility] Department of Radiology [address] [place] [id number] == Patient Name: ALFIE HOGAN : 1960 Sex: F Age: Race: White Pt. Location: [facility] Patient Status: E Ordered Date: 04/23/2021 7:55:00 PM Completed Date: 04/23/2021 08:26 PM Requesting Provider: ADRIÁN LIMA Attending Provider: ADRIÁN LIMA Report Copy To: Signs & Symptoms: Tachycardia History: Comments: Evaluate for Aspiration, hx of falls Exam: PORTABLE CHEST 1 VIEW == PORTABLE CHEST 1 VIEW 04/23/2021 8:26 PM CLINICAL INDICATIONS: Tachycardia TECHNOLOGIST COMMENTS: Pt stated having SOB, and falling many times. QUESTION FOR THE RADIOLOGIST: Evaluate for Aspiration, hx of falls PROTOCOL: AP(PA) view was obtained. COMPARISON: 04/10/2021 FINDINGS: Unchanged elevation of the right hemidiaphragm. No airspace disease, pulmonary edema, pleural effusions or pneumothorax. Thoracic scoliosis. IMPRESSION: No acute cardiopulmonary disease. Electronically signed: Mary Bailey. Transcribed by: [id number], User Resident: Electronically Signed by: MARY BAILEY @ 04/23/2021 08:36 PM Normal [facility] Comment on above: Order Comment: Evalu ate for Aspiration, hx of falls TROPONIN-Ion 04-23-2021 Troponin I.cardiac [Mass/Vol] 0.00 ng/mL Normal 0.00-0.04 [facility] Comment on above: Result Comment: REFE RENCE RANGES: 0.00 - 0.04 ng/ml NORMAL 0.05 - 0.50 ng/ml INDETERMINATE > 0.50 ng/ml CONSISTENT WITH AN M.I. Performed By: #### 0 0071, 46477, 59129 #### [facility] [address] [place] [address], [place] BASIC METABOLIC PANELon 04-04 Calcium [Mass/Vol] 9.0 mg/dL Normal 8.6-10.3 [facility] Comment on above: Order Comment: Unkno wn Performed By: #### 0 0071, 31368, 35569 #### [facility] [address] [place] [address], [place] Chloride [Moles/Vol] 102 mmol/L Normal 98-107 [facility] Comment on above: Order Comment: Unkno wn Performed By: #### 0 0071, 19197, 32443 #### [facility] [address] [place] [address], [place] CO2 [Moles/Vol] 23 mmol/L Normal 21-31 [facility] Comment on above: Order Comment: Unkno wn Performed By: #### 0 0071, 49605, 90352 #### [facility] [address] [place] [address], [place] Creatinine [Mass/Vol] 0.94 mg/dL Normal 0.60-1.20 [facility] Comment on above: Order Comment: Unkno wn Performed By: #### 0 0071, 89710, 17734 #### [facility] [address] [place] [address], [place] GFR/1.73 sq M.predicted among blacks MDRD (S/P/Bld) [Vol rate/Area] mL/min/{1.73_m2} Normal >60 [facility] Comment on above: Order Comment: Unkno wn Performed By: #### 0 0071, 20706, 19909 #### [facility] [address] [place] [address], [place] GFR/1.73 sq M.predicted among non-blacks MDRD (S/P/Bld) [Vol rate/Area] mL/min/{1.73_m2} Normal >60 [facility] Comment on above: Order Comment: Unkno wn Performed By: #### 0 0071, 25289, 28827 #### [facility] [address] [place] [address], [place] Glucose [Mass/Vol] 109 mg/dL High 70-100 [facility] Comment on above: Order Comment: Unkno wn Performed By: #### 0 0071, 54448, 52875 #### [facility] [address] [place] [address], [place] Potassium [Moles/Vol] 3.7 mmol/L Normal 3.5-5.1 [facility] Comment on above: Order Comment: Unkno wn Performed By: #### 0 0071, 81741, 73326 #### [facility] [address] [place] [address], [facility] Sodium [Moles/Vol] 133 mmol/L Low 136-145 [facility] Comment on above: Order Comment: Unkno wn Performed By: #### 0 0071, 09046, 93986 #### [facility] [address] [place] [address], [facility] Urea nitrogen [Mass/Vol] 5 mg/dL Low 7-25 [facility] Comment on above: Order Comment: Unkno wn Performed By: #### 0 0071, 90516, 74528 #### [facility] [address] [place], [place] [id number] [place] [address] CBC COMPLETE BLOOD COUNTon 06-19-2020 Erythrocyte distribution width (RBC) [Ratio] 15.5 % High 11.5-15.0 [facility] Comment on above: Order Comment: RH Performed By: #### 3 0313 #### [facility] [address] [facility] [place] [address], [facility] Hematocrit (Bld) [Volume fraction] 42.7 % Normal 36.0-45.0 [facility] Comment on above: Order Comment: RH Performed By: #### 3 0313 #### [facility] [address] [place] [address], [facility] Hemoglobin (Bld) [Mass/Vol] 12.8 g/dL Normal 12.0-15.0 [facility] Comment on above: Order Comment: RH Performed By: #### 3 0313 #### [facility] [address] [place] [address], [facility] MCH (RBC) [Entitic mass] 28.0 pg Normal 27.0-33.0 [facility] Comment on above: Order Comment: RH Performed By: #### 3 0313 #### [facility] [address] [facility] [place] [address], [facility] MCHC (RBC) [Mass/Vol] 30.0 g/dL Low 32.0-35.0 [facility] Comment on above: Order Comment: RH Performed By: #### 3 0313 #### [facility] [address] [facility] [place] [place] [address], [facility] MCV (RBC) [Entitic vol] 93.4 fL Normal 82.0-98.0 [facility] Comment on above: Order Comment: RH Performed By: #### 3 3 #### [facility] [address] [facility] [place] [address], [facility] Nucleated RBC/100 WBC (Bld) [Ratio] 0 % Normal 0-0 [facility] Comment on above: Order Comment: RH Performed By: #### 3 3 #### [facility] [address] [facility] [place] [place] [address], [facility] PLAT CNT 136 10*3/uL Low 150-400 [facility] Comment on above: Order Comment: RH Performed By: #### 3 0313 #### [facility] [address] [facility] [place] [address], [facility] RBC (Bld) [#/Vol] 4.57 10*6/uL Normal 3.80-5.00 [facility] Comment on above: Order Comment: RH Performed By: #### 3 0313 #### [facility] [address] [facility] [place] [address], [facility] WBC (Bld) [#/Vol] 3.32 10*3/uL Low 4.00-10.60 [facility] Comment on above: Order Comment: RH Performed By: #### 3 0313 #### [facility] [address] [facility] [place] [address], [facility] MAGNESIUM BLOODon 04-19-2021 Magnesium [Mass/Vol] 2.1 mg/dL Normal 1.9-2.7 [facility] Comment on above: Order Comment: Unkno wn Performed By: #### 0 0071, 04184, 88017 #### [facility] [address] [place] [address], [facility] BASIC METABOLIC PANELon 11-1 Calcium [Mass/Vol] 8.8 mg/dL Normal 8.6-10.3 [facility] Comment on above: Order Comment: Unkno wn Performed By: #### 0 0071, 38676, 13156 #### [facility] [address] [place] [address], [place] Chloride [Moles/Vol] 104 mmol/L Normal 98-107 [facility] Comment on above: Order Comment: Unkno wn Performed By: #### 0 0071, 64721, 43339 #### [facility] [address] [place] [address], [place] CO2 [Moles/Vol] 24 mmol/L Normal 21-31 [facility] Comment on above: Order Comment: Unkno wn Performed By: #### 0 0071, 97864, 17620 #### [facility] [address] [place] [address], [place] Creatinine [Mass/Vol] 0.84 mg/dL Normal 0.60-1.20 [facility] Comment on above: Order Comment: Unkno wn Performed By: #### 0 0071, 43344, 67997 #### [facility] [address] [place] [address], [place] GFR/1.73 sq M.predicted among blacks MDRD (S/P/Bld) [Vol rate/Area] mL/min/{1.73_m2} Normal >60 [facility] Comment on above: Order Comment: Unkno wn Performed By: #### 0 0071, 41998, 64765 #### [facility] [address] [place] [address], [place] GFR/1.73 sq M.predicted among non-blacks MDRD (S/P/Bld) [Vol rate/Area] mL/min/{1.73_m2} Normal >60 [facility] Comment on above: Order Comment: Unkno wn Performed By: #### 0 0071, 12294, 03636 #### [facility] [address] [place] [address], [facility] Glucose [Mass/Vol] 102 mg/dL High 70-100 [facility] Comment on above: Order Comment: Unkno wn Performed By: #### 0 0071, 77638, 65685 #### [facility] [address] [place] [address], [facility] Potassium [Moles/Vol] 3.7 mmol/L Normal 3.5-5.1 [facility] Comment on above: Order Comment: Unkno wn Performed By: #### 0 0071, 53498, 78077 #### [facility] [address] [place] [address], [place] Sodium [Moles/Vol] 135 mmol/L Low 136-145 [facility] Comment on above: Order Comment: Unkno wn Performed By: #### 0 0071, 85226, 57879 #### [facility] [address] [place] [address], [place] Urea nitrogen [Mass/Vol] 6 mg/dL Low 7-25 [facility] Comment on above: Order Comment: Unkno wn Performed By: #### 0 0071, 56386, 08342 #### [facility] [address] [place] [address], [facility] CBC COMPLETE BLOOD COUNTon 06-18-2020 Erythrocyte distribution width (RBC) [Ratio] 15.4 % High 11.5-15.0 [facility] Comment on above: Order Comment: The A ptima SARS-CoV-2 assay is a nucleic acid amplification test intended for the qualitative detection of RNA from SARS-CoV-2 isolated and purified from nasopharyngeal (FACULTY HEAD),oropharyngeal (OP), nasal swab, sputum, and bronchoalveolar lavage (BAL) specimens from patients with signs and symptoms of infection who are suspected of COVID-19. Results are for the identification of SARS-CoV-2 RNA. The SARS-CoV-2 RNA is generally detectable during the acute phase of infection. The Aptima SARS-CoV-2 Assay on the Aspen and Aspen Fusion system is intended for use by laboratory personnel specifically instructed and trained in the operation of the Aspen and Aspen Fusion system. The Aptima SARS-CoV-2 assay is only for use under the Food and Drug Administration Emergency Use Authorization. Testing is limited to laboratories certified under the Clinical Laboratory Improvement Amendments of 1988 (CLIA), 42 U.S.C. ???263a, to perform high complexity tests. Not Detected: Not detected does not preclude SARS-CoV-2 infection and should not be used as the sole basis for patient management decisions. Not detected results must be combined with clinical observations, patient history, and epidemiological information. Performed By: #### 3 1792 #### [address] Hematocrit (Bld) [Volume fraction] 40.1 % Normal 36.0-45.0 [facility] Comment on above: Order Comment: The A ptima SARS-CoV-2 assay is a nucleic acid amplification test intended for the qualitative detection of RNA from SARS-CoV-2 isolated and purified from nasopharyngeal (FACULTY HEAD),oropharyngeal (OP), nasal swab, sputum, and bronchoalveolar lavage (BAL) specimens from patients with signs and symptoms of infection who are suspected of COVID-19. Results are for the identification of SARS-CoV-2 RNA. The SARS-CoV-2 RNA is generally detectable during the acute phase of infection. The Aptima SARS-CoV-2 Assay on the Aspen and Asp[employer] Fusion system is intended for use by laboratory personnel specifically instructed and trained in the operation of the Aspen and Aspen Fusion system. The Aptima SARS-CoV-2 assay is only for use under the Food and Drug Administration Emergency Use Authorization. Testing is limited to laboratories certified under the Clinical Laboratory Improvement Amendments of 1988 (CLIA), 42 U.S.C. ???263a, to perform high complexity tests. Not Detected: Not detected does not preclude SARS-CoV-2 infection and should not be used as the sole basis for patient management decisions. Not detected results must be combined with clinical observations, patient history, and epidemiological information. Performed By: #### 3 1792 #### [facility] [address] [place] [address], [facility] Hemoglobin (Bld) [Mass/Vol] 11.9 g/dL Low 12.0-15.0 [facility] Comment on above: Order Comment: The A ptima SARS-CoV-2 assay is a nucleic acid amplification test intended for the qualitative detection of RNA from SARS-CoV-2 isolated and purified from nasopharyngeal (FACULTY HEAD),oropharyngeal (OP), nasal swab, sputum, and bronchoalveolar lavage (BAL) specimens from patients with signs and symptoms of infection who are suspected of COVID-19. Results are for the identification of SARS-CoV-2 RNA. The SARS-CoV-2 RNA is generally detectable during the acute phase of infection. The Aptima SARS-CoV-2 Assay on the Petnet and Petnet Fusion system is intended for use by laboratory personnel specifically instructed and trained in the operation of the Aspen and Aspen Fusion system. The Aptima SARS-CoV-2 assay is only for use under the Food and Drug Administration Emergency Use Authorization. Testing is limited to laboratories certified under the Clinical Laboratory Improvement Amendments of 1988 (CLIA), 42 U.S.C. ???263a, to perform high complexity tests. Not Detected: Not detected does not preclude SARS-CoV-2 infection and should not be used as the sole basis for patient management decisions. Not detected results must be combined with clinical observations, patient history, and epidemiological information. Performed By: #### 3 1792 #### [facility] [address] [facility] [place] [address], [facility] MCH (RBC) [Entitic mass] 28.3 pg Normal 27.0-33.0 [facility] Comment on above: Order Comment: The A ptima SARS-CoV-2 assay is a nucleic acid amplification test intended for the qualitative detection of RNA from SARS-CoV-2 isolated and purified from nasopharyngeal (FACULTY HEAD),oropharyngeal (OP), nasal swab, sputum, and bronchoalveolar lavage (BAL) specimens from patients with signs and symptoms of infection who are suspected of COVID-19. Results are for the identification of SARS-CoV-2 RNA. The SARS-CoV-2 RNA is generally detectable during the acute phase of infection. The Aptima SARS-CoV-2 Assay on the Aspen and Aspen Fusion system is intended for use by laboratory personnel specifically instructed and trained in the operation of the Aspen and Aspen Fusion system. The Aptima SARS-CoV-2 assay is only for use under the Food and Drug Administration Emergency Use Authorization. Testing is limited to laboratories certified under the Clinical Laboratory Improvement Amendments of 1988 (CLIA), 42 U.S.C. ???263a, to perform high complexity tests. Not Detected: Not detected does not preclude SARS-CoV-2 infection and should not be used as the sole basis for patient management decisions. Not detected results must be combined with clinical observations, patient history, and epidemiological information. Performed By: #### 3 1792 #### [address] MCHC (RBC) [Mass/Vol] 29.7 g/dL Low 32.0-35.0 [facility] Comment on above: Order Comment: The A ptima SARS-CoV-2 assay is a nucleic acid amplification test intended for the qualitative detection of RNA from SARS-CoV-2 isolated and purified from nasopharyngeal (FACULTY HEAD),oropharyngeal (OP), nasal swab, sputum, and bronchoalveolar lavage (BAL) specimens from patients with signs and symptoms of infection who are suspected of COVID-19. Results are for the identification of SARS-CoV-2 RNA. The SARS-CoV-2 RNA is generally detectable during the acute phase of infection. The Aptima SARS-CoV-2 Assay on the Aspen and Aspen Fusion system is intended for use by laboratory personnel specifically instructed and trained in the operation of the Aspen and Aspen Fusion system. The Aptima SARS-CoV-2 assay is only for use under the Food and Drug Administration Emergency Use Authorization. Testing is limited to laboratories certified under the Clinical Laboratory Improvement Amendments of 1988 (CLIA), 42 U.S.C. ???263a, to perform high complexity tests. Not Detected: Not detected does not preclude SARS-CoV-2 infection and should not be used as the sole basis for patient management decisions. Not detected results must be combined with clinical observations, patient history, and epidemiological information. Performed By: #### 3 1792 #### [facility] [address] [place] [address], [facility] MCV (RBC) [Entitic vol] 95.2 fL Normal 82.0-98.0 [facility] Comment on above: Order Comment: The A ptima SARS-CoV-2 assay is a nucleic acid amplification test intended for the qualitative detection of RNA from SARS-CoV-2 isolated and purified from nasopharyngeal (FACULTY HEAD),oropharyngeal (OP), nasal swab, sputum, and bronchoalveolar lavage (BAL) specimens from patients with signs and symptoms of infection who are suspected of COVID-19. Results are for the identification of SARS-CoV-2 RNA. The SARS-CoV-2 RNA is generally detectable during the acute phase of infection. The Aptima SARS-CoV-2 Assay on the [employer] Fusion system is intended for use by laboratory personnel specifically instructed and trained in the operation of the Aspen and [employer] Fusion system. The Aptima SARS-CoV-2 assay is only for use under the Food and Drug Administration Emergency Use Authorization. Testing is limited to laboratories certified under the Clinical Laboratory Improvement Amendments of 1988 (CLIA), 42 U.S.C. ???263a, to perform high complexity tests. Not Detected: Not detected does not preclude SARS-CoV-2 infection and should not be used as the sole basis for patient management decisions. Not detected results must be combined with clinical observations, patient history, and epidemiological information. Performed By: #### 3 1792 #### [facility] [address] [facility] [place] [address], [facility] Nucleated RBC/100 WBC (Bld) [Ratio] 0 % Normal 0-0 [facility] Comment on above: Order Comment: The A ptima SARS-CoV-2 assay is a nucleic acid amplification test intended for the qualitative detection of RNA from SARS-CoV-2 isolated and purified from nasopharyngeal (FACULTY HEAD),oropharyngeal (OP), nasal swab, sputum, and bronchoalveolar lavage (BAL) specimens from patients with signs and symptoms of infection who are suspected of COVID-19. Results are for the identification of SARS-CoV-2 RNA. The SARS-CoV-2 RNA is generally detectable during the acute phase of infection. The Aptima SARS-CoV-2 Assay on the Aspen and Aspen Fusion system is intended for use by laboratory personnel specifically instructed and trained in the operation of the Aspen and Aspen Fusion system. The Aptima SARS-CoV-2 assay is only for use under the Food and Drug Administration Emergency Use Authorization. Testing is limited to laboratories certified under the Clinical Laboratory Improvement Amendments of 1988 (CLIA), 42 U.S.C. ???263a, to perform high complexity tests. Not Detected: Not detected does not preclude SARS-CoV-2 infection and should not be used as the sole basis for patient management decisions. Not detected results must be combined with clinical observations, patient history, and epidemiological information. Performed By: #### 3 1792 #### [facility] [address] PLAT CNT 106 10*3/uL Low 150-400 [facility] Comment on above: Order Comment: The A ptima SARS-CoV-2 assay is a nucleic acid amplification test intended for the qualitative detection of RNA from SARS-CoV-2 isolated and purified from nasopharyngeal (FACULTY HEAD),oropharyngeal (OP), nasal swab, sputum, and bronchoalveolar lavage (BAL) specimens from patients with signs and symptoms of infection who are suspected of COVID-19. Results are for the identification of SARS-CoV-2 RNA. The SARS-CoV-2 RNA is generally detectable during the acute phase of infection. The Aptima SARS-CoV-2 Assay on the Aspen and Aspen Fusion system is intended for use by laboratory personnel specifically instructed and trained in the operation of the Aspen and Aspen Fusion system. The Aptima SARS-CoV-2 assay is only for use under the Food and Drug Administration Emergency Use Authorization. Testing is limited to laboratories certified under the Clinical Laboratory Improvement Amendments of 1988 (CLIA), 42 U.S.C. ???263a, to perform high complexity tests. Not Detected: Not detected does not preclude SARS-CoV-2 infection and should not be used as the sole basis for patient management decisions. Not detected results must be combined with clinical observations, patient history, and epidemiological information. Performed By: #### 3 2712 #### [facility] [address] [facility] [place] [address], [facility] RBC (Bld) [#/Vol] 4.21 10*6/uL Normal 3.80-5.00 [facility] Comment on above: Order Comment: The A ptima SARS-CoV-2 assay is a nucleic acid amplification test intended for the qualitative detection of RNA from SARS-CoV-2 isolated and purified from nasopharyngeal (FACULTY HEAD),oropharyngeal (OP), nasal swab, sputum, and bronchoalveolar lavage (BAL) specimens from patients with signs and symptoms of infection who are suspected of COVID-19. Results are for the identification of SARS-CoV-2 RNA. The SARS-CoV-2 RNA is generally detectable during the acute phase of infection. The Aptima SARS-CoV-2 Assay on the Petnet and Petnet Fusion system is intended for use by laboratory personnel specifically instructed and trained in the operation of the Aspen [employer] Fusion system. The Aptima SARS-CoV-2 assay is only for use under the Food and Drug Administration Emergency Use Authorization. Testing is limited to laboratories certified under the Clinical Laboratory Improvement Amendments of 1988 (CLIA), 42 U.S.C. ???263a, to perform high complexity tests. Not Detected: Not detected does not preclude SARS-CoV-2 infection and should not be used as the sole basis for patient management decisions. Not detected results must be combined with clinical observations, patient history, and epidemiological information. Performed By: #### 3 [id number] #### [facility] [address] WBC (Bld) [#/Vol] 2.78 10*3/uL Low 4.00-10.60 [facility] Comment on above: Order Comment: The A ptima SARS-CoV-2 assay is a nucleic acid amplification test intended for the qualitative detection of RNA from SARS-CoV-2 isolated and purified from nasopharyngeal (FACULTY HEAD),oropharyngeal (OP), nasal swab, sputum, and bronchoalveolar lavage (BAL) specimens from patients with signs and symptoms of infection who are suspected of COVID-19. Results are for the identification of SARS-CoV-2 RNA. The SARS-CoV-2 RNA is generally detectable during the acute phase of infection. The Aptima SARS-CoV-2 Assay on the Aspen [employer] Aspen Fusion system is intended for use by laboratory personnel specifically instructed and trained in the operation of the Aspen and Aspen Fusion system. The Aptima SARS-CoV-2 assay is only for use under the Food and Drug Administration Emergency Use Authorization. Testing is limited to laboratories certified under the Clinical Laboratory Improvement Amendments of 1988 (CLIA), 42 U.S.C. ???263a, to perform high complexity tests. Not Detected: Not detected does not preclude SARS-CoV-2 infection and should not be used as the sole basis for patient management decisions. Not detected results must be combined with clinical observations, patient history, and epidemiological information. Performed By: #### 3 [id number] #### [address] MAGNESIUM BLOODon 04-18-2021 Magnesium [Mass/Vol] 1.9 mg/dL Normal 1.9-2.7 [facility] Comment on above: Order Comment: Unkno wn Performed By: #### 0 0071, [id number], [id number] #### [address] MRI BRAIN W WO CONTRASTon MRI BRAIN W WO CONTRAST [facility] Department of Radiology [address] [place] [id number] == Patient Name: ALFIE HOGAN : 1960 Sex: F Age: Race: White Pt. Location: [id number] Patient Status: I Ordered Date: 04/15/2021 11:15:00 AM Completed Date: 04/18/2021 10:50 AM Requesting Provider: ALFIE BEASLEY Attending Provider: ROB SCRUGSG Report Copy To: Signs & Symptoms: Headaches History: See Comments Comments: CVA Exam: MRI BRAIN W WO CONTRAST == MRI BRAIN W WO CONTRAST 04/18/2021 10:50 AM CLINICAL INDICATIONS: Headaches TECHNOLOGIST COMMENTS: Patient confused and difficulty not following commands. QUESTION FOR RADIOLOGIST: CVA PROTOCOL: The following pulse sequences were utilized when imaging the brain: sagittal T1, diffusion weighted imaging, axial T2 FLAIR, axial T2 fat-sat, axial T1, axial GRE. Post contrast imaging in sagittal 3D and axial 3D. CONTRAST: Contrast: DOTAREM .5mmol, 20 milliliter, Intravenous COMPARISON: CT brain 04/10/2021 FINDINGS: Evaluation is compromised by patient motion artifact on multiple sequences. There is scattered T2/FLAIR hyperintense foci throughout the white matter of both cerebral hemispheres, nonspecific but most likely sequela of mild chronic small vessel ischemia. No hydrocephalus, mass effect, or midline shift. No evidence for an acute infarct or acute intracranial hemorrhage. Normal flow voids in the dural venous sinuses. No gross evidence for mass or pathologic enhancement in the brain. Midline structures including optic chiasm, pituitary gland, midbrain, grossly unremarkable. Diffuse mucosal thickening of the paranasal sinuses and opacification of bilateral mastoid air cells corresponding with findings on recent CT. IMPRESSION: 1. No evidence for an acute intracranial process. 2. Probable sequelae of mild chronic small vessel ischemia as described. 3. Opacification of bilateral mastoid air cells and diffuse mucosal thickening of the paranasal sinuses. Electronically signed: Lui Escalante. Transcribed by: [email or web address], User Resident: Electronically Signed by: LUI ESCALANTE @ 04/18/2021 11:07 AM Normal [facility] Comment on above: Order Comment: CVA BASIC METABOLIC PANELon - Calcium [Mass/Vol] 9.2 mg/dL Normal 8.6-10.3 [facility] Comment on above: Order Comment: Unkno wn Performed By: #### 0 0071, [id number], 88550 #### [facility] [address] [place] [address], [facility] Chloride [Moles/Vol] 103 mmol/L Normal 98-107 [facility] Comment on above: Order Comment: Unkno wn Performed By: #### 0 0071, 60767, 97899 #### [facility] [address] [place] [address], [place] CO2 [Moles/Vol] 26 mmol/L Normal 21-31 [facility] Comment on above: Order Comment: Unkno wn Performed By: #### 0 0071, 87549, 42203 #### [facility] [address] [place] [address], [facility] Creatinine [Mass/Vol] 1.02 mg/dL Normal 0.60-1.20 [facility] Comment on above: Order Comment: Unkno wn Performed By: #### 0 0071, 97018, 02487 #### [facility] [address] [place] [address], [facility] eGFR- non- 56 ml/min/1.73sq m Abnormal >60 [facility] Comment on above: Order Comment: Unkno wn Performed By: #### 0 0071, 29976, 69865 #### [facility] [address] [place] [address], [place] GFR/1.73 sq M.predicted among blacks MDRD (S/P/Bld) [Vol rate/Area] mL/min/{1.73_m2} Normal >60 [facility] Comment on above: Order Comment: Unkno wn Performed By: #### 0 0071, 63559, 33389 #### [facility] [address] [place] [address], [facility] Glucose [Mass/Vol] 102 mg/dL High 70-100 [facility] Comment on above: Order Comment: Unkno wn Performed By: #### 0 0071, 80996, 60279 #### [facility] [address] Potassium [Moles/Vol] 3.9 mmol/L Normal 3.5-5.1 [facility] Comment on above: Order Comment: Unkno wn Performed By: #### 0 0071, 01820, 08596 #### [facility] [address] [place] [address], [facility] Sodium [Moles/Vol] 135 mmol/L Low 136-145 [facility] Comment on above: Order Comment: Unkno wn Performed By: #### 0 0071, 17334, 70446 #### [facility] [address] Urea nitrogen [Mass/Vol] 6 mg/dL Low 7-25 [facility] Comment on above: Order Comment: Unkno wn Performed By: #### 0 0071, 82633, 91888 #### [facility] [address] CBC COMPLETE BLOOD COUNTon 1 06-17-2020 Erythrocyte distribution width (RBC) [Ratio] 15.4 % High 11.5-15.0 [facility] Comment on above: Order Comment: The A ptima SARS-CoV-2 assay is a nucleic acid amplification test intended for the qualitative detection of RNA from SARS-CoV-2 isolated and purified from nasopharyngeal (FACULTY HEAD),oropharyngeal (OP), nasal swab, sputum, and bronchoalveolar lavage (BAL) specimens from patients with signs and symptoms of infection who are suspected of COVID-19. Results are for the identification of SARS-CoV-2 RNA. The SARS-CoV-2 RNA is generally detectable during the acute phase of infection. The Aptima SARS-CoV-2 Assay on the [employer] Fusion system is intended for use by laboratory personnel specifically instructed and trained in the operation of the Aspen [employer] Fusion system. The Aptima SARS-CoV-2 assay is only for use under the Food and Drug Administration Emergency Use Authorization. Testing is limited to laboratories certified under the Clinical Laboratory Improvement Amendments of 1988 (CLIA), 42 U.S.C. ???263a, to perform high complexity tests. Not Detected: Not detected does not preclude SARS-CoV-2 infection and should not be used as the sole basis for patient management decisions. Not detected results must be combined with clinical observations, patient history, and epidemiological information. Performed By: #### 3 1792 #### [facility] [address] [facility] [place] [address], [facility] Hematocrit (Bld) [Volume fraction] 39.9 % Normal 36.0-45.0 [facility] Comment on above: Order Comment: The A ptima SARS-CoV-2 assay is a nucleic acid amplification test intended for the qualitative detection of RNA from SARS-CoV-2 isolated and purified from nasopharyngeal (FACULTY HEAD),oropharyngeal (OP), nasal swab, sputum, and bronchoalveolar lavage (BAL) specimens from patients with signs and symptoms of infection who are suspected of COVID-19. Results are for the identification of SARS-CoV-2 RNA. The SARS-CoV-2 RNA is generally detectable during the acute phase of infection. The Aptima SARS-CoV-2 Assay on the [employer] Fusion system is intended for use by laboratory personnel specifically instructed and trained in the operation of the Aspen and Aspen Fusion system. The Aptima SARS-CoV-2 assay is only for use under the Food and Drug Administration Emergency Use Authorization. Testing is limited to laboratories certified under the Clinical Laboratory Improvement Amendments of 1988 (CLIA), 42 U.S.C. ???263a, to perform high complexity tests. Not Detected: Not detected does not preclude SARS-CoV-2 infection and should not be used as the sole basis for patient management decisions. Not detected results must be combined with clinical observations, patient history, and epidemiological information. Performed By: #### 3 1792 #### [facility] [address] [facility] [place] [address], [facility] Hemoglobin (Bld) [Mass/Vol] 12.3 g/dL Normal 12.0-15.0 [facility] Comment on above: Order Comment: The A ptima SARS-CoV-2 assay is a nucleic acid amplification test intended for the qualitative detection of RNA from SARS-CoV-2 isolated and purified from nasopharyngeal (FACULTY HEAD),oropharyngeal (OP), nasal swab, sputum, and bronchoalveolar lavage (BAL) specimens from patients with signs and symptoms of infection who are suspected of COVID-19. Results are for the identification of SARS-CoV-2 RNA. The SARS-CoV-2 RNA is generally detectable during the acute phase of infection. The Aptima SARS-CoV-2 Assay on the Aspen and Asp[employer] Fusion system is intended for use by laboratory personnel specifically instructed and trained in the operation of the Aspen and Aspen Fusion system. The Aptima SARS-CoV-2 assay is only for use under the Food and Drug Administration Emergency Use Authorization. Testing is limited to laboratories certified under the Clinical Laboratory Improvement Amendments of 1988 (CLIA), 42 U.S.C. ???263a, to perform high complexity tests. Not Detected: Not detected does not preclude SARS-CoV-2 infection and should not be used as the sole basis for patient management decisions. Not detected results must be combined with clinical observations, patient history, and epidemiological information. Performed By: #### 3 1792 #### [address] MCH (RBC) [Entitic mass] 28.3 pg Normal 27.0-33.0 [facility] Comment on above: Order Comment: The A ptima SARS-CoV-2 assay is a nucleic acid amplification test intended for the qualitative detection of RNA from SARS-CoV-2 isolated and purified from nasopharyngeal (FACULTY HEAD),oropharyngeal (OP), nasal swab, sputum, and bronchoalveolar lavage (BAL) specimens from patients with signs and symptoms of infection who are suspected of COVID-19. Results are for the identification of SARS-CoV-2 RNA. The SARS-CoV-2 RNA is generally detectable during the acute phase of infection. The Aptima SARS-CoV-2 Assay on the Aspen and Asp[employer] Fusion system is intended for use by laboratory personnel specifically instructed and trained in the operation of the Aspen and Aspen Fusion system. The Aptima SARS-CoV-2 assay is only for use under the Food and Drug Administration Emergency Use Authorization. Testing is limited to laboratories certified under the Clinical Laboratory Improvement Amendments of 1988 (CLIA), 42 U.S.C. ???263a, to perform high complexity tests. Not Detected: Not detected does not preclude SARS-CoV-2 infection and should not be used as the sole basis for patient management decisions. Not detected results must be combined with clinical observations, patient history, and epidemiological information. Performed By: #### 3 1795 #### [facility] [address] MCHC (RBC) [Mass/Vol] 30.8 g/dL Low 32.0-35.0 [facility] Comment on above: Order Comment: The A ptima SARS-CoV-2 assay is a nucleic acid amplification test intended for the qualitative detection of RNA from SARS-CoV-2 isolated and purified from nasopharyngeal (FACULTY HEAD),oropharyngeal (OP), nasal swab, sputum, and bronchoalveolar lavage (BAL) specimens from patients with signs and symptoms of infection who are suspected of COVID-19. Results are for the identification of SARS-CoV-2 RNA. The SARS-CoV-2 RNA is generally detectable during the acute phase of infection. The Aptima SARS-CoV-2 Assay on the [employer] Fusion system is intended for use by laboratory personnel specifically instructed and trained in the operation of the [employer] and [employer] Fusion system. The Aptima SARS-CoV-2 assay is only for use under the Food and Drug Administration Emergency Use Authorization. Testing is limited to laboratories certified under the Clinical Laboratory Improvement Amendments of 1988 (CLIA), 42 U.S.C. ???263a, to perform high complexity tests. Not Detected: Not detected does not preclude SARS-CoV-2 infection and should not be used as the sole basis for patient management decisions. Not detected results must be combined with clinical observations, patient history, and epidemiological information. Performed By: #### 3 1792 #### [facility] [address] [place] [address], [facility] MCV (RBC) [Entitic vol] 91.7 fL Normal 82.0-98.0 [facility] Comment on above: Order Comment: The A ptima SARS-CoV-2 assay is a nucleic acid amplification test intended for the qualitative detection of RNA from SARS-CoV-2 isolated and purified from nasopharyngeal (FACULTY HEAD),oropharyngeal (OP), nasal swab, sputum, and bronchoalveolar lavage (BAL) specimens from patients with signs and symptoms of infection who are suspected of COVID-19. Results are for the identification of SARS-CoV-2 RNA. The SARS-CoV-2 RNA is generally detectable during the acute phase of infection. The Aptima SARS-CoV-2 Assay on the Aspen and Asp[employer] Fusion system is intended for use by laboratory personnel specifically instructed and trained in the operation of the Aspen and Aspen Fusion system. The Aptima SARS-CoV-2 assay is only for use under the Food and Drug Administration Emergency Use Authorization. Testing is limited to laboratories certified under the Clinical Laboratory Improvement Amendments of 1988 (CLIA), 42 U.S.C. ???263a, to perform high complexity tests. Not Detected: Not detected does not preclude SARS-CoV-2 infection and should not be used as the sole basis for patient management decisions. Not detected results must be combined with clinical observations, patient history, and epidemiological information. Performed By: #### 3 1792 #### [address] Nucleated RBC/100 WBC (Bld) [Ratio] 0 % Normal 0-0 [facility] Comment on above: Order Comment: The A ptima SARS-CoV-2 assay is a nucleic acid amplification test intended for the qualitative detection of RNA from SARS-CoV-2 isolated and purified from nasopharyngeal (FACULTY HEAD),oropharyngeal (OP), nasal swab, sputum, and bronchoalveolar lavage (BAL) specimens from patients with signs and symptoms of infection who are suspected of COVID-19. Results are for the identification of SARS-CoV-2 RNA. The SARS-CoV-2 RNA is generally detectable during the acute phase of infection. The Aptima SARS-CoV-2 Assay on the Aspen and Aspen Fusion system is intended for use by laboratory personnel specifically instructed and trained in the operation of the Aspen and Aspen Fusion system. The Aptima SARS-CoV-2 assay is only for use under the Food and Drug Administration Emergency Use Authorization. Testing is limited to laboratories certified under the Clinical Laboratory Improvement Amendments of 1988 (CLIA), 42 U.S.C. ???263a, to perform high complexity tests. Not Detected: Not detected does not preclude SARS-CoV-2 infection and should not be used as the sole basis for patient management decisions. Not detected results must be combined with clinical observations, patient history, and epidemiological information. Performed By: #### 3 1792 #### [facility] [address] [facility]. [address] PLAT CNT 110 10*3/uL Low 150-400 [facility] Comment on above: Order Comment: The A ptima SARS-CoV-2 assay is a nucleic acid amplification test intended for the qualitative detection of RNA from SARS-CoV-2 isolated and purified from nasopharyngeal (FACULTY HEAD),oropharyngeal (OP), nasal swab, sputum, and bronchoalveolar lavage (BAL) specimens from patients with signs and symptoms of infection who are suspected of COVID-19. Results are for the identification of SARS-CoV-2 RNA. The SARS-CoV-2 RNA is generally detectable during the acute phase of infection. The Aptima SARS-CoV-2 Assay on the [employer] and [employer] Fusion system is intended for use by laboratory personnel specifically instructed and trained in the operation of the Aspen and Aspen Fusion system. The Aptima SARS-CoV-2 assay is only for use under the Food and Drug Administration Emergency Use Authorization. Testing is limited to laboratories certified under the Clinical Laboratory Improvement Amendments of 1988 (CLIA), 42 U.S.C. ???263a, to perform high complexity tests. Not Detected: Not detected does not preclude SARS-CoV-2 infection and should not be used as the sole basis for patient management decisions. Not detected results must be combined with clinical observations, patient history, and epidemiological information. Performed By: #### 3 1792 #### [facility] [address] [facility]. [address] RBC (Bld) [#/Vol] 4.35 10*6/uL Normal 3.80-5.00 [facility] Comment on above: Order Comment: The A ptima SARS-CoV-2 assay is a nucleic acid amplification test intended for the qualitative detection of RNA from SARS-CoV-2 isolated and purified from nasopharyngeal (FACULTY HEAD),oropharyngeal (OP), nasal swab, sputum, and bronchoalveolar lavage (BAL) specimens from patients with signs and symptoms of infection who are suspected of COVID-19. Results are for the identification of SARS-CoV-2 RNA. The SARS-CoV-2 RNA is generally detectable during the acute phase of infection. The Aptima SARS-CoV-2 Assay on the Aspen and Asp[employer] Fusion system is intended for use by laboratory personnel specifically instructed and trained in the operation of the Aspen and Aspen Fusion system. The Aptima SARS-CoV-2 assay is only for use under the Food and Drug Administration Emergency Use Authorization. Testing is limited to laboratories certified under the Clinical Laboratory Improvement Amendments of 1988 (CLIA), 42 U.S.C. ???263a, to perform high complexity tests. Not Detected: Not detected does not preclude SARS-CoV-2 infection and should not be used as the sole basis for patient management decisions. Not detected results must be combined with clinical observations, patient history, and epidemiological information. Performed By: #### 3 1792 #### [facility] [address] [facility]. [address] WBC (Bld) [#/Vol] 3.42 10*3/uL Low 4.00-10.60 [facility] Comment on above: Order Comment: The A ptima SARS-CoV-2 assay is a nucleic acid amplification test intended for the qualitative detection of RNA from SARS-CoV-2 isolated and purified from nasopharyngeal (FACULTY HEAD),oropharyngeal (OP), nasal swab, sputum, and bronchoalveolar lavage (BAL) specimens from patients with signs and symptoms of infection who are suspected of COVID-19. Results are for the identification of SARS-CoV-2 RNA. The SARS-CoV-2 RNA is generally detectable during the acute phase of infection. The Aptima SARS-CoV-2 Assay on the Aspen and Aspen Fusion system is intended for use by laboratory personnel specifically instructed and trained in the operation of the Aspen and Aspen Fusion system. The Aptima SARS-CoV-2 assay is only for use under the Food and Drug Administration Emergency Use Authorization. Testing is limited to laboratories certified under the Clinical Laboratory Improvement Amendments of 1988 (CLIA), 42 U.S.C. ???263a, to perform high complexity tests. Not Detected: Not detected does not preclude SARS-CoV-2 infection and should not be used as the sole basis for patient management decisions. Not detected results must be combined with clinical observations, patient history, and epidemiological information. Performed By: #### 3 1792 #### [facility] [address] [place], [place] [id number] [place] [address] MAGNESIUM BLOODon 04-17-2021 Magnesium [Mass/Vol] 1.8 mg/dL Low 1.9-2.7 [facility] Comment on above: Order Comment: Unkno wn Performed By: #### 0 0071, 35294, 69063 #### [facility] [address] EEG Reporton 04-16-2021 EEG Report Name: Isrrael Hogan [facility] MR#: [id number] Age: 60 Physician: Date: 04/15/2021 Lab#: Date of : 1960 Patient Type: I NEURODIAGNOSTIC SERVICES REPORT [place], [place] [address] Board of the [place] [employer] Accredited Laboratory Alfie Hogan Date of : 1960 EEG lab November: Date of study: 04/15/2021 Referring physician: Dr. Beasley History: This is an AEL-enfk-zbo right-handed male with seizures. The study is to assist clinical diagnosis. MEDICATION: ACETAMINOPHEN CALCIUM CARBONAT DOCUSATE SODIUM FLUOXETINE HCL FOLIC ACID HEPARIN SODIUM LORAZEPAM MELATONIN MULTIPLE VITAMIN NACL 0.9% ONDANSETRON POLYETHYLENE GLY POTASSIUM CHLORI PROCHLORPERAZINE SENNA-DOCUSATE S THIAMINE HCL TRAZODONE HCL Technical Description: This is a scalp EEG that was performed utilizing the International 10-20 montage system. Digital EEG data was collected from 25 channels. Multi-reformative montages and digital analysis are used during the interpretation of the record when appropriate. An additional channel was used to monitor EKG during the EEG study. EEG Interpretation: The study was performed in an adult with altered mental status. This study lasted for 26 minutes. It is of fair quality for digital EEG, audio, and video. Artifacts were recognized. During wakefulness, there was a well-defined, sustained, and symmetrical posterior dominant rhythm with a frequency of 9-10 Hz and amplitude of 25-30 V bilaterally. This activity demonstrated waxing and waning in response to eye closing and opening. Fast activity with a frequency > 20 Hz and amplitude < 10 V was seen in the bilateral anterior head regions. Intermittent slowing with a frequency of 4-6 Hz and amplitude of 40-60 V was observed as 7-10 second segments in 50-60% of the record in the right anterior hemisphere maximal T4F8. Intermittent asymmetry with decreased background fast of also observed in this area. Generalized and asymmetric, right more than left, intermittent 1-3 Hz rhythmic slowing with amplitude of 60 to 80 V were also observed as 3-5 second fragments in 30 to 40% of the record. There was no epileptiform discharge, or electrographic seizure. There was no sustained driving in response to photic stimulation at all tested frequencies. Hyperventilation was not performed. The patient spent 10-20 % of the recording time in light drowsiness, which was evidenced by the presence of attenuation of wakeful background. EEG Classification: The study was abnormal in an adult during wakefulness and drowsiness. There was an intermittent slowing and asymmetry in the right frontal region. There were generalized and the right more than left intermittent rhythmic slowing. Clinical Correlation: The study is abnormal. There are findings to indicate possible focal cortical structural abnormality in the right anterior hemisphere. Appropriate brain imaging study especially MRI may assist further with clinical diagnosis. Clinical correlation is recommended. Electronically Signed by: Angel Herrera M.D. 04/16/2021 03:48 P Angel Herrera M.D. Date Dict: 04/16/2021/03:47 P/Angel Herrera M.D. Date Trans: 04/16/2021 03:47 P/ [id number] Normal [facility] MRI DYNAMIC LIVER W WO CONTR Elizabeth 04-16-2021 MRI DYNAMIC LIVER W WO CONTRAST [facility] Department of Radiology [address] [place] [address] == Patient Name: ALFIE HOGAN : 1960 Sex: F Age: Race: White Pt. Location: [id number] Patient Status: I Ordered Date: 04/13/2021 8:45:00 PM Completed Date: 04/16/2021 11:45 AM Requesting Provider: SHAN KEY Attending Provider: ROB SCRUGGS Report Copy To: Signs & Symptoms: Abnormal Study History: See Comments Comments: Cancer Exam: MRI DYNAMIC LIVER W WO CONTRAST == MRI DYNAMIC LIVER W WO CONTRAST 04/16/2021 11:45 AM CLINICAL INDICATIONS: Abnormal Study TECHNOLOGIST COMMENTS: abd pain, abnormal CT QUESTION FOR THE RADIOLOGIST: Cancer PROTOCOL: DYNAMIC LIVER: The following pulse sequences were utilized: axial and coronal T2 weighted SSFSE, axial T1 weighted 3D in and opposed phase, axial diffusion-weighted, axial T2 weighted fat saturation FSE, pre and dynamic post-contrast axial T1 weighted fat saturation 3D GRE. CONTRAST: Contrast: DOTAREM .5mmol, 20 milliliter, Intravenous COMPARISON: CT abdomen pelvis with contrast 04/10/2021 FINDINGS: Suboptimal imaging due to minimal motion artifact. Corresponding to the right renal lesion described on CT scan, is a bilobed cystic 15 mm lesion, with high T2 signal, intermediate T1 signal without convincing enhancement, thick-walled component component. Simple subcapsular 14 mm hemangioma left lower lobe accounts for the finding on CT scan. Otherwise, no convincing evidence for additional enhancing lesions in the liver, spleen, pancreas, adrenal glands or kidneys. There is no free fluid. No enlarged lymph nodes. IMPRESSION: Bosniak IIF renal lesion, likely benign. 6 month follow up imaging recommended. Benign hepatic hemangioma. Electronically signed: Elizabeth Jordan. Transcribed by: [email or web address], User Resident: Electronically Signed by: ELIZABETH JORDAN @ 04/16/2021 04:06 PM Normal [facility] Comment on above: Order Comment: Lele mireles BASIC METABOLIC PANELon 11-1 Calcium [Mass/Vol] 9.0 mg/dL Normal 8.6-10.3 [facility] Comment on above: Order Comment: No: D o not add to previous draw Performed By: #### 1 69, 75324 #### [facility] [address] [place] [address], [place] Chloride [Moles/Vol] 104 mmol/L Normal 98-107 [facility] Comment on above: Order Comment: No: D o not add to previous draw Performed By: #### 1 0, 03469 #### [facility] [address] [place] [address], [place] CO2 [Moles/Vol] 23 mmol/L Normal 21-31 [facility] Comment on above: Order Comment: No: D o not add to previous draw Performed By: #### 1 69, 61614 #### [facility] [address] [place] [address], [place] Creatinine [Mass/Vol] 0.98 mg/dL Normal 0.60-1.20 [facility] Comment on above: Order Comment: No: D o not add to previous draw Performed By: #### 1 69, 36457 #### [facility] [address] [place] [address], [place] eGFR- non- 58 ml/min/1.73sq m Abnormal >60 [facility] Comment on above: Order Comment: No: D o not add to previous draw Performed By: #### 1 0, 37172 #### [facility] [address] [place] [address], [place] GFR/1.73 sq M.predicted among blacks MDRD (S/P/Bld) [Vol rate/Area] mL/min/{1.73_m2} Normal >60 [facility] Comment on above: Order Comment: No: D o not add to previous draw Performed By: #### 1 69, 24747 #### [facility] [address] [place] [address], [place] Glucose [Mass/Vol] 78 mg/dL Normal 70-100 [facility] Comment on above: Order Comment: No: D o not add to previous draw Performed By: #### 1 69, 45337 #### [facility] [address] [place] [address], [place] Potassium [Moles/Vol] 3.7 mmol/L Normal 3.5-5.1 [facility] Comment on above: Order Comment: No: D o not add to previous draw Performed By: #### 1 69, 45203 #### [facility] [address] [place] [address], [place] Sodium [Moles/Vol] 137 mmol/L Normal 136-145 [facility] Comment on above: Order Comment: No: D o not add to previous draw Performed By: #### 1 69, 29955 #### [facility] [address] [place] [address], [facility] Urea nitrogen [Mass/Vol] 9 mg/dL Normal 7-25 [facility] Comment on above: Order Comment: No: D o not add to previous draw Performed By: #### 1 69, 84806 #### [facility] [address] [place] [id number], [facility] CBC COMPLETE BLOOD COUNTon 06-15-2020 Erythrocyte distribution width (RBC) [Ratio] 15.0 % Normal 11.5-15.0 [facility] Comment on above: Order Comment: RH Performed By: #### 3 0623 #### [facility] [address] [place] [id number], [facility] Hematocrit (Bld) [Volume fraction] 41.3 % Normal 36.0-45.0 [facility] Comment on above: Order Comment: RH Performed By: #### 3 3 #### [facility] [address] [place] [address], [facility] Hemoglobin (Bld) [Mass/Vol] 12.8 g/dL Normal 12.0-15.0 [facility] Comment on above: Order Comment: RH Performed By: #### 3 0313 #### [facility] [address] [place] [address], [facility] MCH (RBC) [Entitic mass] 28.6 pg Normal 27.0-33.0 [facility] Comment on above: Order Comment: RH Performed By: #### 3 3 #### [facility] [address] [facility] [place] [address], [facility] MCHC (RBC) [Mass/Vol] 31.0 g/dL Low 32.0-35.0 [facility] Comment on above: Order Comment: RH Performed By: #### 3 3 #### [facility] [address] [facility] [place] [address], [facility] MCV (RBC) [Entitic vol] 92.2 fL Normal 82.0-98.0 T [facility] Comment on above: Order Comment: RH Performed By: #### 3 3 #### [facility] [address] [facility] [place] [address], [facility] Nucleated RBC/100 WBC (Bld) [Ratio] 0 % Normal 0-0 [facility] Comment on above: Order Comment: RH Performed By: #### 3 3 #### [facility] [address] [facility] [place] [address], [facility] PLAT CNT 127 10*3/uL Low 150-400 [facility] Comment on above: Order Comment: RH Performed By: #### 3 3 #### [facility] [address] [facility] [place] [address], [facility] RBC (Bld) [#/Vol] 4.48 10*6/uL Normal 3.80-5.00 [facility] Comment on above: Order Comment: RH Performed By: #### 3 0313 #### [facility] [address] WBC (Bld) [#/Vol] 3.25 10*3/uL Low 4.00-10.60 [facility] Comment on above: Order Comment: RH Performed By: #### 3 0313 #### [facility] [address] MAGNESIUM BLOODon 04-15-2021 Magnesium [Mass/Vol] 1.9 mg/dL Normal 1.9-2.7 [facility] Comment on above: Order Comment: No: D o not add to previous draw Performed By: #### 1 0070, 28205 #### [facility] [address] HCV NAAT REFLEX TO GENOTYPE [id number] 04-14-2021 HCV QNT BY NAAT INTERP Not detected Normal Not Detecte d [facility] Comment on above: Result Comment: INTE RPRETIVE INFORMATION: HCV by Quantitative NAAT Normal range for this assay is Not Detected. The quantitative range of this assay is 10 - 100,000,000 IU/mL (1.0 - 8.0 log IU/mL). Lower limit of quantitation (LLoQ): 10 IU/mL (1.0 log IU/mL) LLoQ values do not apply to diluted specimens. A result of Not Detected does not rule out the presence of inhibitors in the patient specimen or hepatitis C virus RNA concentrations below the level of detection of the test. Care should be taken when interpreting any single viral load determination. This test should not be used for blood donor screening, associated re-entry protocols, or for screening Human Cell, Tissues and Cellular Tissue-Based Products (HCT/P). Performed By: [facility] [address] [place] [address] Pipeline Technician: Rylee Amaro MD HCV QNT BY NAAT LOG Not detected Normal [facility] Comment on above: Result Comment: Hepa titis C Virus (HCV) by Quantitative TMA result was less than 4,000 IU/mL (3.6 log IU/mL); therefore no further testing added. HCV QNT NAAT Not detected Normal [facility] HEPATITIS C ANTIBODYon 04-14 ANTI-HCV Indeterminate Abnormal NONREACTIVE [facility] Comment on above: Order Comment: No: D o not add to previous draw Performed By: #### 1 0070, 30655 #### [address] ABDOMEN 1 VWon 04-13-2021 ABDOMEN 1 [facility] Department of Radiology [address] [place] [id number] == Patient Name: ALFIE HOGAN : 1960 Sex: F Age: Race: White Pt. Location: [id number] Patient Status: I Ordered Date: 04/13/2021 11:05:00 AM Completed Date: 04/13/2021 01:02 PM Requesting Provider: YELENA BLACKWOOD Attending Provider: ROB SCRUGGS Report Copy To: Signs & Symptoms: Constipation/Impaction History: Comments: Impaction Exam: ABDOMEN 1 == ABDOMEN 1 04/13/2021 1:02 PM CLINICAL INDICATIONS: Constipation/Impaction TECHNOLOGIST COMMENTS: constipation/impaction QUESTION FOR THE RADIOLOGIST: Impaction PROTOCOL: AP(PA) view was obtained. COMPARISON: None FINDINGS: There is a nonobstructed nonspecific bowel gas pattern. No significant stool volume. No free air. IMPRESSION: Nonobstructive bowel gas pattern Electronically signed: Radha Patton. Transcribed by: [email or web address], User Resident: Electronically Signed by: RADHA PATTON @ 04/13/2021 03:21 PM Normal [facility] Comment on above: Order Comment: Impac tion AFP TUMOR MARKER 70252cg AFP TUMOR MARKER 4 ng/mL Normal 0-9 [facility] Comment on above: Result Comment: INTE RPRETIVE INFORMATION: Alpha Fetoprotein Tumor Marker The Stephen Kareem Access DxI AFP method is used. Results obtained with different assay methods or kits cannot be used interchangeably. AFP is a valuable aid in the management of nonseminomatous testicular cancer patients when used in conjunction with information available from the clinical evaluation and other diagnostic procedures. Increased AFP concentrations have also been observed in ataxia telangiectasia, hereditary tyrosinemia, primary hepatocellular carcinoma, teratocarcinoma, gastrointestinal tract cancers with and without liver metastases, and in benign hepatic conditions such as acute viral hepatitis, chronic active hepatitis, and cirrhosis. The result cannot be interpreted as absolute evidence of the presence or absence of malignant disease. The result is not interpretable as a tumor marker in females. Access complete set of age- and/or gender-specific reference intervals for this test in the [employer] [facility] Test Directory ([facility]). Performed By: [facility] [address] [place] [id number] Pipeline Technician: Rylee Amaro MD BASIC METABOLIC PANELon 04-04 Calcium [Mass/Vol] 8.6 mg/dL Normal 8.6-10.3 [facility] Comment on above: Order Comment: No: D o not add to previous draw Performed By: #### 1 69, 53369 #### [facility] [address] [place] [address], [place] Chloride [Moles/Vol] 108 mmol/L High 98-107 [facility] Comment on above: Order Comment: No: D o not add to previous draw Performed By: #### 1 69, 65996 #### [facility] [address] [place] [address], [place] CO2 [Moles/Vol] 27 mmol/L Normal 21-31 [facility] Comment on above: Order Comment: No: D o not add to previous draw Performed By: #### 1 69, 62823 #### [facility] [address] [place] [address], [place] Creatinine [Mass/Vol] 0.98 mg/dL Normal 0.60-1.20 [facility] Comment on above: Order Comment: No: D o not add to previous draw Performed By: #### 1 69, 14019 #### [facility] [address] [place] [address], [place] eGFR- non- 58 ml/min/1.73sq m Abnormal >60 [facility] Comment on above: Order Comment: No: D o not add to previous draw Performed By: #### 1 69, 30234 #### [facility] [address] [place] [address], [place] GFR/1.73 sq M.predicted among blacks MDRD (S/P/Bld) [Vol rate/Area] mL/min/{1.73_m2} Normal >60 [facility] Comment on above: Order Comment: No: D o not add to previous draw Performed By: #### 1 69, 08798 #### [facility] [address] [place] [address], [place] Glucose [Mass/Vol] 84 mg/dL Normal 70-100 [facility] Comment on above: Order Comment: No: D o not add to previous draw Performed By: #### 1 69, 70025 #### [facility] [address] [place] [address], [place] Potassium [Moles/Vol] 4.1 mmol/L Normal 3.5-5.1 [facility] Comment on above: Order Comment: No: D o not add to previous draw Performed By: #### 1 69, 75116 #### [facility] [address] [place] [address], [place] Sodium [Moles/Vol] 140 mmol/L Normal 136-145 [facility] Comment on above: Order Comment: No: D o not add to previous draw Performed By: #### 1 0070, 66676 #### [facility] [address] [place] [address], [facility] Urea nitrogen [Mass/Vol] 10 mg/dL Normal 7-25 [facility] Comment on above: Order Comment: No: D o not add to previous draw Performed By: #### 1 0070, 01954 #### [facility] [address] [place] [address], [facility] CANCER ANTIGEN 125on 021 CA 125 13 Units/mL Normal 0-35 [facility] Comment on above: Order Comment: No: D o not add to previous draw Result Comment: The Voxify OV Monitor Immunoassay method was used. Results obtained with different assay methods cannot be used interchangeably. Performed By: #### 1 0070, 61448 #### [facility] [address] [place] [address], [facility] CANCER ANTIGEN-GI (CA 19-9) [id number] 04-13-2021 CA 19-9 29 U/mL Normal 0-37 [facility] Comment on above: Order Comment: Unkno wn Result Comment: INTE RPRETIVE INFORMATION: Cancer Antigen-GI (CA 19-9) This test uses Tino CA 19-9 electrochemiluminescent immunoassay. Results obtained with different test methods or kits cannot be used interchangeably. CA 19-9 value is useful in monitoring pancreatic, hepatobiliary, gastric, hepatocellular, and colorectal cancer. CA 19-9 value, regardless of level, should not be interpreted as absolute evidence of the presence or absence of malignant disease. Performed By: [facility] [address] [place] [address] Pipeline Technician: Rylee Amaro MD CBC COMPLETE BLOOD COUNTon 06-13-2020 Erythrocyte distribution width (RBC) [Ratio] 14.9 % Normal 11.5-15.0 [facility] Comment on above: Order Comment: The A ptima SARS-CoV-2 assay is a nucleic acid amplification test intended for the qualitative detection of RNA from SARS-CoV-2 isolated and purified from nasopharyngeal (FACULTY HEAD),oropharyngeal (OP), nasal swab, sputum, and bronchoalveolar lavage (BAL) specimens from patients with signs and symptoms of infection who are suspected of COVID-19. Results are for the identification of SARS-CoV-2 RNA. The SARS-CoV-2 RNA is generally detectable during the acute phase of infection. The Aptima SARS-CoV-2 Assay on the Aspen [employer] Aspen Fusion system is intended for use by laboratory personnel specifically instructed and trained in the operation of the Aspen and Aspen Fusion system. The Aptima SARS-CoV-2 assay is only for use under the Food and Drug Administration Emergency Use Authorization. Testing is limited to laboratories certified under the Clinical Laboratory Improvement Amendments of 1988 (CLIA), 42 U.S.C. ???263a, to perform high complexity tests. Not Detected: Not detected does not preclude SARS-CoV-2 infection and should not be used as the sole basis for patient management decisions. Not detected results must be combined with clinical observations, patient history, and epidemiological information. Performed By: #### 3 1792 #### [address] Hematocrit (Bld) [Volume fraction] 38.9 % Normal 36.0-45.0 [facility] Comment on above: Order Comment: The A ptima SARS-CoV-2 assay is a nucleic acid amplification test intended for the qualitative detection of RNA from SARS-CoV-2 isolated and purified from nasopharyngeal (FACULTY HEAD),oropharyngeal (OP), nasal swab, sputum, and bronchoalveolar lavage (BAL) specimens from patients with signs and symptoms of infection who are suspected of COVID-19. Results are for the identification of SARS-CoV-2 RNA. The SARS-CoV-2 RNA is generally detectable during the acute phase of infection. The Aptima SARS-CoV-2 Assay on the Aspen and Aspen Fusion system is intended for use by laboratory personnel specifically instructed and trained in the operation of the Aspen and Aspen Fusion system. The Aptima SARS-CoV-2 assay is only for use under the Food and Drug Administration Emergency Use Authorization. Testing is limited to laboratories certified under the Clinical Laboratory Improvement Amendments of 1988 (CLIA), 42 U.S.C. ???263a, to perform high complexity tests. Not Detected: Not detected does not preclude SARS-CoV-2 infection and should not be used as the sole basis for patient management decisions. Not detected results must be combined with clinical observations, patient history, and epidemiological information. Performed By: #### 3 1792 #### [facility] [address] [facility] [place] [address], [facility] Hemoglobin (Bld) [Mass/Vol] 12.1 g/dL Normal 12.0-15.0 [facility] Comment on above: Order Comment: The A ptima SARS-CoV-2 assay is a nucleic acid amplification test intended for the qualitative detection of RNA from SARS-CoV-2 isolated and purified from nasopharyngeal (FACULTY HEAD),oropharyngeal (OP), nasal swab, sputum, and bronchoalveolar lavage (BAL) specimens from patients with signs and symptoms of infection who are suspected of COVID-19. Results are for the identification of SARS-CoV-2 RNA. The SARS-CoV-2 RNA is generally detectable during the acute phase of infection. The Aptima SARS-CoV-2 Assay on the Aspen and Aspen Fusion system is intended for use by laboratory personnel specifically instructed and trained in the operation of the Aspen and Pet[employer] Fusion system. The Aptima SARS-CoV-2 assay is only for use under the Food and Drug Administration Emergency Use Authorization. Testing is limited to laboratories certified under the Clinical Laboratory Improvement Amendments of 1988 (CLIA), 42 U.S.C. ???263a, to perform high complexity tests. Not Detected: Not detected does not preclude SARS-CoV-2 infection and should not be used as the sole basis for patient management decisions. Not detected results must be combined with clinical observations, patient history, and epidemiological information. Performed By: #### 3 1792 #### [facility] [address] [facility] [place] [address], [facility] MCH (RBC) [Entitic mass] 28.2 pg Normal 27.0-33.0 [facility] Comment on above: Order Comment: The A ptima SARS-CoV-2 assay is a nucleic acid amplification test intended for the qualitative detection of RNA from SARS-CoV-2 isolated and purified from nasopharyngeal (FACULTY HEAD),oropharyngeal (OP), nasal swab, sputum, and bronchoalveolar lavage (BAL) specimens from patients with signs and symptoms of infection who are suspected of COVID-19. Results are for the identification of SARS-CoV-2 RNA. The SARS-CoV-2 RNA is generally detectable during the acute phase of infection. The Aptima SARS-CoV-2 Assay on the Aspen and Aspen Fusion system is intended for use by laboratory personnel specifically instructed and trained in the operation of the Aspen and Aspen Fusion system. The Aptima SARS-CoV-2 assay is only for use under the Food and Drug Administration Emergency Use Authorization. Testing is limited to laboratories certified under the Clinical Laboratory Improvement Amendments of 1988 (CLIA), 42 U.S.C. ???263a, to perform high complexity tests. Not Detected: Not detected does not preclude SARS-CoV-2 infection and should not be used as the sole basis for patient management decisions. Not detected results must be combined with clinical observations, patient history, and epidemiological information. Performed By: #### 3 1792 #### [facility] [address] MCHC (RBC) [Mass/Vol] 31.1 g/dL Low 32.0-35.0 [facility] Comment on above: Order Comment: The A ptima SARS-CoV-2 assay is a nucleic acid amplification test intended for the qualitative detection of RNA from SARS-CoV-2 isolated and purified from nasopharyngeal (FACULTY HEAD),oropharyngeal (OP), nasal swab, sputum, and bronchoalveolar lavage (BAL) specimens from patients with signs and symptoms of infection who are suspected of COVID-19. Results are for the identification of SARS-CoV-2 RNA. The SARS-CoV-2 RNA is generally detectable during the acute phase of infection. The Aptima SARS-CoV-2 Assay on the Aspen and Aspen Fusion system is intended for use by laboratory personnel specifically instructed and trained in the operation of the Aspen and Aspen Fusion system. The Aptima SARS-CoV-2 assay is only for use under the Food and Drug Administration Emergency Use Authorization. Testing is limited to laboratories certified under the Clinical Laboratory Improvement Amendments of 1988 (CLIA), 42 U.S.C. ???263a, to perform high complexity tests. Not Detected: Not detected does not preclude SARS-CoV-2 infection and should not be used as the sole basis for patient management decisions. Not detected results must be combined with clinical observations, patient history, and epidemiological information. Performed By: #### 3 1792 #### [facility] [address] [facility] [place] [address], [facility] MCV (RBC) [Entitic vol] 90.7 fL Normal 82.0-98.0 [facility] Comment on above: Order Comment: The A ptima SARS-CoV-2 assay is a nucleic acid amplification test intended for the qualitative detection of RNA from SARS-CoV-2 isolated and purified from nasopharyngeal (FACULTY HEAD),oropharyngeal (OP), nasal swab, sputum, and bronchoalveolar lavage (BAL) specimens from patients with signs and symptoms of infection who are suspected of COVID-19. Results are for the identification of SARS-CoV-2 RNA. The SARS-CoV-2 RNA is generally detectable during the acute phase of infection. The Aptima SARS-CoV-2 Assay on the Pet[employer] and Aspen Fusion system is intended for use by laboratory personnel specifically instructed and trained in the operation of the Aspen and Aspen Fusion system. The Aptima SARS-CoV-2 assay is only for use under the Food and Drug Administration Emergency Use Authorization. Testing is limited to laboratories certified under the Clinical Laboratory Improvement Amendments of 1988 (CLIA), 42 U.S.C. ???263a, to perform high complexity tests. Not Detected: Not detected does not preclude SARS-CoV-2 infection and should not be used as the sole basis for patient management decisions. Not detected results must be combined with clinical observations, patient history, and epidemiological information. Performed By: #### 3 1792 #### [facility] [address] [facility] [place] [address], [facility] Nucleated RBC/100 WBC (Bld) [Ratio] 0 % Normal 0-0 [facility] Comment on above: Order Comment: The A ptima SARS-CoV-2 assay is a nucleic acid amplification test intended for the qualitative detection of RNA from SARS-CoV-2 isolated and purified from nasopharyngeal (FACULTY HEAD),oropharyngeal (OP), nasal swab, sputum, and bronchoalveolar lavage (BAL) specimens from patients with signs and symptoms of infection who are suspected of COVID-19. Results are for the identification of SARS-CoV-2 RNA. The SARS-CoV-2 RNA is generally detectable during the acute phase of infection. The Aptima SARS-CoV-2 Assay on the Aspen and Aspen Fusion system is intended for use by laboratory personnel specifically instructed and trained in the operation of the Aspen and Aspen Fusion system. The Aptima SARS-CoV-2 assay is only for use under the Food and Drug Administration Emergency Use Authorization. Testing is limited to laboratories certified under the Clinical Laboratory Improvement Amendments of 1988 (CLIA), 42 U.S.C. ???263a, to perform high complexity tests. Not Detected: Not detected does not preclude SARS-CoV-2 infection and should not be used as the sole basis for patient management decisions. Not detected results must be combined with clinical observations, patient history, and epidemiological information. Performed By: #### 3 1792 #### [facility] [address] [facility] PLAT CNT 118 10*3/uL Low 150-400 [facility] Comment on above: Order Comment: The A ptima SARS-CoV-2 assay is a nucleic acid amplification test intended for the qualitative detection of RNA from SARS-CoV-2 isolated and purified from nasopharyngeal (FACULTY HEAD),oropharyngeal (OP), nasal swab, sputum, and bronchoalveolar lavage (BAL) specimens from patients with signs and symptoms of infection who are suspected of COVID-19. Results are for the identification of SARS-CoV-2 RNA. The SARS-CoV-2 RNA is generally detectable during the acute phase of infection. The Aptima SARS-CoV-2 Assay on the Aspen and Aspen Fusion system is intended for use by laboratory personnel specifically instructed and trained in the operation of the Aspen and Aspen Fusion system. The Aptima SARS-CoV-2 assay is only for use under the Food and Drug Administration Emergency Use Authorization. Testing is limited to laboratories certified under the Clinical Laboratory Improvement Amendments of 1988 (CLIA), 42 U.S.C. ???263a, to perform high complexity tests. Not Detected: Not detected does not preclude SARS-CoV-2 infection and should not be used as the sole basis for patient management decisions. Not detected results must be combined with clinical observations, patient history, and epidemiological information. Performed By: #### 3 1792 #### [facility] 3000 [facility]. [address] RBC (Bld) [#/Vol] 4.29 10*6/uL Normal 3.80-5.00 [facility] Comment on above: Order Comment: The A ptima SARS-CoV-2 assay is a nucleic acid amplification test intended for the qualitative detection of RNA from SARS-CoV-2 isolated and purified from nasopharyngeal (FACULTY HEAD),oropharyngeal (OP), nasal swab, sputum, and bronchoalveolar lavage (BAL) specimens from patients with signs and symptoms of infection who are suspected of COVID-19. Results are for the identification of SARS-CoV-2 RNA. The SARS-CoV-2 RNA is generally detectable during the acute phase of infection. The Aptima SARS-CoV-2 Assay on the Petnet and Petnet Fusion system is intended for use by laboratory personnel specifically instructed and trained in the operation of the Aspen and Petnet Fusion system. The Aptima SARS-CoV-2 assay is only for use under the Food and Drug Administration Emergency Use Authorization. Testing is limited to laboratories certified under the Clinical Laboratory Improvement Amendments of 1988 (CLIA), 42 U.S.C. ???263a, to perform high complexity tests. Not Detected: Not detected does not preclude SARS-CoV-2 infection and should not be used as the sole basis for patient management decisions. Not detected results must be combined with clinical observations, patient history, and epidemiological information. Performed By: #### 3 1792 #### [facility] [address] WBC (Bld) [#/Vol] 3.13 10*3/uL Low 4.00-10.60 [facility] Comment on above: Order Comment: The A ptima SARS-CoV-2 assay is a nucleic acid amplification test intended for the qualitative detection of RNA from SARS-CoV-2 isolated and purified from nasopharyngeal (FACULTY HEAD),oropharyngeal (OP), nasal swab, sputum, and bronchoalveolar lavage (BAL) specimens from patients with signs and symptoms of infection who are suspected of COVID-19. Results are for the identification of SARS-CoV-2 RNA. The SARS-CoV-2 RNA is generally detectable during the acute phase of infection. The Aptima SARS-CoV-2 Assay on the Aspen and Aspen Fusion system is intended for use by laboratory personnel specifically instructed and trained in the operation of the Aspen and Aspen Fusion system. The Aptima SARS-CoV-2 assay is only for use under the Food and Drug Administration Emergency Use Authorization. Testing is limited to laboratories certified under the Clinical Laboratory Improvement Amendments of 1988 (CLIA), 42 U.S.C. ???263a, to perform high complexity tests. Not Detected: Not detected does not preclude SARS-CoV-2 infection and should not be used as the sole basis for patient management decisions. Not detected results must be combined with clinical observations, patient history, and epidemiological information. Performed By: #### 3 1792 #### [address] CEAon 04-13-2021 CEA 3.2 ng/mL High 0.0-3.0 [facility] Comment on above: Order Comment: No: D o not add to previous draw Performed By: #### 1 0070, 68984 #### [facility] [address] HEPATITIS A ANTIBODY IGMon 06-13-2020 HEP A AB IGM Non-Reactive Normal NONREACTIVE [facility] Comment on above: Performed By: #### 1 69, 50905 #### [facility] [address] [facility]. [address] HEPATITIS B CORE ANTIBODYon 04-13-2021 HEP B CORE AB Non-Reactive Normal NONREACTIVE [facility] Comment on above: Performed By: #### 1 0, 23808 #### [facility] [address] [facility]. [address] HEPATITIS B SURFACE ANTIGEN QUALon 04-13-2021 HEP B SURF AG QUAL Non-Reactive Normal NONREACTIVE [facility] Comment on above: Performed By: #### 1 0, 40588 #### [address] [place] [address], [facility] HEPATITIS C ANTIBODYon 04-13 ANTI-HCV Indeterminate Abnormal NONREACTIVE [facility] Comment on above: Performed By: #### 1 69, 07033 #### [facility] [address] [place] [address], [place] MAGNESIUM BLOODon 04-13-2021 Magnesium [Mass/Vol] 2.1 mg/dL Normal 1.9-2.7 [facility] Comment on above: Order Comment: No: D o not add to previous draw Performed By: #### 1 69, 73949 #### [facility] [address] [place] [address], [facility] BASIC METABOLIC PANELon Calcium [Mass/Vol] 8.5 mg/dL Low 8.6-10.3 [facility] Comment on above: Order Comment: No: D o not add to previous draw Performed By: #### 1 69, 87278 #### [facility] [address] [place] [address], [place] Chloride [Moles/Vol] 106 mmol/L Normal 98-107 [facility] Comment on above: Order Comment: No: D o not add to previous draw Performed By: #### 1 69, 76395 #### [facility] [address] [place] [address], [place] CO2 [Moles/Vol] 27 mmol/L Normal 21-31 [facility] Comment on above: Order Comment: No: D o not add to previous draw Performed By: #### 1 69, 23583 #### [facility] [address] [place] [address], [place] Creatinine [Mass/Vol] 1.21 mg/dL High 0.60-1.20 [facility] Comment on above: Order Comment: No: D o not add to previous draw Performed By: #### 1 69, 90268 #### [facility] [address] [place] [address], [facility] eGFR- 55 ml/min/1.73sq m Abnormal >60 [facility] Comment on above: Order Comment: No: D o not add to previous draw Performed By: #### 1 69, 76730 #### [facility] [address] [place] [address], [place] eGFR- non- 45 ml/min/1.73sq m Abnormal >60 [facility] Comment on above: Order Comment: No: D o not add to previous draw Performed By: #### 1 69, 93448 #### [facility] [address] [place] [address], [facility] Glucose [Mass/Vol] 100 mg/dL Normal 70-100 [facility] Comment on above: Order Comment: No: D o not add to previous draw Performed By: #### 1 69, 64586 #### [facility] [address] [place] [address], [place] Potassium [Moles/Vol] 3.6 mmol/L Normal 3.5-5.1 [facility] Comment on above: Order Comment: No: D o not add to previous draw Performed By: #### 1 69, 06218 #### [facility] [address] [place] [address], [place] Sodium [Moles/Vol] 138 mmol/L Normal 136-145 [facility] Comment on above: Order Comment: No: D o not add to previous draw Performed By: #### 1 69, 61819 #### [facility] [address] [place] [address], [place] Urea nitrogen [Mass/Vol] 11 mg/dL Normal 7-25 [facility] Comment on above: Order Comment: No: D o not add to previous draw Performed By: #### 1 69, 58189 #### [facility] [address] [place] [address], [place] CBC COMPLETE BLOOD COUNTon 06-12-2020 Erythrocyte distribution width (RBC) [Ratio] 14.8 % Normal 11.5-15.0 [facility] Comment on above: Order Comment: RH Performed By: #### 3 0313 #### [facility] [address] [place] [address], [facility] Hematocrit (Bld) [Volume fraction] 36.2 % Normal 36.0-45.0 [facility] Comment on above: Order Comment: RH Performed By: #### 3 3 #### [facility] [address] [place] [address], [facility] Hemoglobin (Bld) [Mass/Vol] 11.0 g/dL Low 12.0-15.0 [facility] Comment on above: Order Comment: RH Performed By: #### 3 3 #### [facility] [address] [facility] [address], [facility] MCH (RBC) [Entitic mass] 28.1 pg Normal 27.0-33.0 [facility] Comment on above: Order Comment: RH Performed By: #### 3 0313 #### [facility] [address] [facility] [address], [facility] MCHC (RBC) [Mass/Vol] 30.4 g/dL Low 32.0-35.0 [facility] Comment on above: Order Comment: RH Performed By: #### 3 0313 #### [facility] [address] [place] [address], [facility] MCV (RBC) [Entitic vol] 92.3 fL Normal 82.0-98.0 [facility] Comment on above: Order Comment: RH Performed By: #### 3 3 #### [facility] [address] [place] [id number], [facility] Nucleated RBC/100 WBC (Bld) [Ratio] 0 % Normal 0-0 [facility] Comment on above: Order Comment: RH Performed By: #### 3 0313 #### [facility] [address] [facility] [address], [facility] PLAT CNT 109 10*3/uL Low 150-400 [facility] Comment on above: Order Comment: RH Performed By: #### 3 0313 #### [facility] [address] [facility] [place] [place] [address], [facility] RBC (Bld) [#/Vol] 3.92 10*6/uL Normal 3.80-5.00 [facility] Comment on above: Order Comment: RH Performed By: #### 3 0313 #### [facility] [address] [facility] [place] [address], [facility] WBC (Bld) [#/Vol] 3.13 10*3/uL Low 4.00-10.60 [facility] Comment on above: Order Comment: RH Performed By: #### 3 0313 #### [facility] [address] [facility]. [address] MAGNESIUM BLOODon 04-12-2021 Magnesium [Mass/Vol] 2.2 mg/dL Normal 1.9-2.7 [facility] Comment on above: Order Comment: No: D o not add to previous draw Performed By: #### 1 0070, 32757 #### [facility] [address] [facility]. [address] AMMONIA BLOODon 04-11-2021 Ammonia (P) [Moles/Vol] 30 umol/L Normal 16-53 [facility] Comment on above: Order Comment: Unkno wn Performed By: #### 0 0071, 34273, 39317 #### [facility] [address] [facility]. [address] BASIC METABOLIC PANELon Calcium [Mass/Vol] 8.8 mg/dL Normal 8.6-10.3 [facility] Comment on above: Order Comment: No: D o not add to previous draw Performed By: #### 1 0070, 11429 #### [facility] [address] [place] [address], [place] Chloride [Moles/Vol] 105 mmol/L Normal 98-107 [facility] Comment on above: Order Comment: No: D o not add to previous draw Performed By: #### 1 69, 06857 #### [facility] [address] [place] [address], [place] CO2 [Moles/Vol] 27 mmol/L Normal 21-31 [facility] Comment on above: Order Comment: No: D o not add to previous draw Performed By: #### 1 69, 51650 #### [facility] [address] [place] [address], [place] Creatinine [Mass/Vol] 1.44 mg/dL High 0.60-1.20 [facility] Comment on above: Order Comment: No: D o not add to previous draw Performed By: #### 1 69, 01154 #### [facility] [address] [place] [address], [place] eGFR- 45 ml/min/1.73sq m Abnormal >60 [facility] Comment on above: Order Comment: No: D o not add to previous draw Performed By: #### 1 69, #### [facility] [address] [place] [address], [place] eGFR- non- 37 ml/min/1.73sq m Abnormal >60 [facility] Comment on above: Order Comment: No: D o not add to previous draw Performed By: #### 1 69, 28743 #### [facility] [address] [place] [address], [place] Glucose [Mass/Vol] 135 mg/dL High 70-100 [facility] Comment on above: Order Comment: No: D o not add to previous draw Performed By: #### 1 69, 73010 #### [facility] [address] [place] [address], [facility] Potassium [Moles/Vol] 3.5 mmol/L Normal 3.5-5.1 [facility] Comment on above: Order Comment: No: D o not add to previous draw Performed By: #### 1 69, 74713 #### [facility] [address] [place] [address], [place] Sodium [Moles/Vol] 138 mmol/L Normal 136-145 [facility] Comment on above: Order Comment: No: D o not add to previous draw Performed By: #### 1 69, 24842 #### [facility] [address] [place] [address], [facility] Urea nitrogen [Mass/Vol] 13 mg/dL Normal 7-25 [facility] Comment on above: Order Comment: No: D o not add to previous draw Performed By: #### 1 69, 10086 #### [facility] [address] [place] [address], [facility] CBC COMPLETE BLOOD COUNTon 06-11-2020 Erythrocyte distribution width (RBC) [Ratio] 14.6 % Normal 11.5-15.0 [facility] Comment on above: Order Comment: RH Performed By: #### 3 0313 #### [facility] [address] [place] [address], [facility] Hematocrit (Bld) [Volume fraction] 40.2 % Normal 36.0-45.0 [facility] Comment on above: Order Comment: RH Performed By: #### 3 0313 #### [facility] [address] [place] [address], [facility] Hemoglobin (Bld) [Mass/Vol] 12.2 g/dL Normal 12.0-15.0 [facility] Comment on above: Order Comment: RH Performed By: #### 3 0313 #### [facility] [address] [place] [address], [place] IMM PLATELET FRAC 1.5 % Normal 0.8-6.3 [facility] Comment on above: Order Comment: RH Performed By: #### 3 0313 #### [facility] [address] MCH (RBC) [Entitic mass] 28.0 pg Normal 27.0-33.0 [facility] Comment on above: Order Comment: RH Performed By: #### 3 3 #### [facility] [address] MCHC (RBC) [Mass/Vol] 30.3 g/dL Low 32.0-35.0 [facility] Comment on above: Order Comment: RH Performed By: #### 3 3 #### [facility] [address] MCV (RBC) [Entitic vol] 92.2 fL Normal 82.0-98.0 T [facility] Comment on above: Order Comment: RH Performed By: #### 3 3 #### [facility] [address] Nucleated RBC/100 WBC (Bld) [Ratio] 0 % Normal 0-0 [facility] Comment on above: Order Comment: RH Performed By: #### 3 3 #### [facility] [address] [facility] [place] [address], [facility] PLAT CNT 126 10*3/uL Low 150-400 [facility] Comment on above: Order Comment: RH Performed By: #### 3 3 #### [facility] [address] [place] [address], [facility] RBC (Bld) [#/Vol] 4.36 10*6/uL Normal 3.80-5.00 [facility] Comment on above: Order Comment: RH Performed By: #### 3 3 #### [facility] [address] WBC (Bld) [#/Vol] 4.89 10*3/uL Normal 4.00-10.60 [facility] Comment on above: Order Comment: RH Performed By: #### 3 0313 #### [facility] [address] Ed Urine Tox Screen (compoun d)on 04-11-2021 50 THC Positive Abnormal NEGATIVE [facility] Comment on above: Performed By: #### 0 0071, 19699, 22718 #### [facility] [address] BARBITURATES Positive Abnormal NEGATIVE [facility] Comment on above: Performed By: #### 0 0071, 76159, 16801 #### [facility] [address] [facility] [address], [facility] BENZODIAZEPINES Negative Normal NEGATIVE [facility] Comment on above: Performed By: #### 0 0071, 30794, 49953 #### [facility] [address] [facility] [place] [address], [facility] COCAINE Negative Normal NEGATIVE [facility] Comment on above: Performed By: #### 0 0071, 00358, 32293 #### [facility] [address] [facility] [place] [address], [facility] METHADONE Negative Normal NEGATIVE [facility] Comment on above: Performed By: #### 0 0071, 45568, 64452 #### [facility] [address] [place] [address], [facility] MONO AMPHET Negative Normal NEGATIVE [facility] Comment on above: Performed By: #### 0 0071, 30148, 02768 #### [facility] [address] [place] [address], [facility] OPIATES Negative Normal NEGATIVE [facility] Comment on above: Performed By: #### 0 0071, 86102, 91852 #### [facility] [address] [place] [address], [facility] PHENCYCLIDINE Negative Normal NEGATIVE [facility] Comment on above: Performed By: #### 0 0071, 84600, 50238 #### [facility] [address] [place] [address], [facility] PROPOXYPHENE Negative Normal NEGATIVE [facility] Comment on above: Performed By: #### 0 0071, 11464, 80328 #### [facility] [address] [place] [address], [facility] TRICYCLICS Positive Abnormal NEGATIVE [facility] Comment on above: Performed By: #### 0 0071, 22725, 94435 #### [facility] [address] [place] [address], [facility] FOLATE SERUMon 04-11-2021 SERUM FOLATE 26.00 ng/mL Normal 6.60-1000.00 [facility] Comment on above: Result Comment: Norm al range reflects World Health Organization International Standard 178 Performed By: #### 1 0, 56223 #### [facility] [address] [place] [address], [facility] MAGNESIUM BLOODon 04-11-2021 Magnesium [Mass/Vol] 2.5 mg/dL Normal 1.9-2.7 [facility] Comment on above: Order Comment: No: D o not add to previous draw Performed By: #### 1 0, 88466 #### [facility] [address] [place] [address], [facility] PHOSPHORUS BLOODon Phosphate [Mass/Vol] 2.0 mg/dL Low 2.5-5.0 [facility] Comment on above: Order Comment: No: D o not add to previous draw Performed By: #### 1 0, 00063 #### [facility] [address] [place] [address], [facility] POC SARS COV2 ANTIGEN NEGATI VEon 04-11-2021 POC SARS COV2 ANTIGEN NEG Negative Normal NEGATIVE [facility] Comment on above: Result Comment: Nega tive results from patients with symptom onset beyond seven days, should be treated presumptive and confirmation with a molecular assay, if necessary, for patient management, may be performed. Negative results do not rule out SARS-CoV-2 infection and should not be used as the sole basis for treatment or patient management decisions, including infection control decisions. Negative results should be considered in the context of a patient?s recent exposures, history and the presence of clinical signs and symptoms consistent with COVID-19. The RoboteX COVID-19 Ag Card is a lateral flow immunoassay intended for the qualitative detection of nucleocapsid protein antigen from SARS-CoV-2 in direct nasal swabs from individuals within the first seven days of symptom onset. Testing is limited to laboratories certified under the Clinical Laboratory Improvement Amendments of 1988 (CLIA), 42 U.S.C. ???263a, that meet the requirements to perform moderate, high or waived complexity tests. This test is authorized for use at the Point of Care (POC), i.e., in patient care settings operating under a CLIA Certificate of Waiver, Certificate of Compliance, or Certificate of Accreditation. Performed By: #### 3 1792 #### [address] TSH3 WITH REFLEX FT4on 04-11 TSH 3RD GENERATION 0.48 uIU/mL Normal 0.34-5.60 [facility] Comment on above: Performed By: #### 1 0070, 28472 #### [facility] [address] URINALYSISon 04-11-2021 Appearance (U) CLEAR Normal CLEAR [facility] Comment on above: Performed By: #### 1 0008 #### [facility] [address] [place] [address], [facility] Bilirubin Ql (U) Negative Normal NEGATIVE [facility] Comment on above: Performed By: #### 1 0008 #### [facility] [address] [place] [address], [facility] Color (U) YELLOW Normal YELLOW [facility] Comment on above: Performed By: #### 1 0008 #### [facility] [address] [facility] [place] [address], [facility] EPIS MANY Abnormal FEW,OCC,NONE SEEN [facility] Comment on above: Performed By: #### 1 0008 #### [facility] [address] [place] [address], [facility] Glucose Ql (U) Negative Normal NEGATIVE [facility] Comment on above: Performed By: #### 1 0008 #### [facility] [address] [facility] [place] [address], [facility] Hemoglobin Ql (U) Negative Normal NEGATIVE [facility] Comment on above: Performed By: #### 1 0008 #### [facility] [address] [facility] [place] [address], [facility] KETONE Negative Normal NEGATIVE [facility] Comment on above: Performed By: #### 1 0008 #### [facility] [address] [facility] [place] [address], [facility] LEUK CRISTO Negative Normal NEGATIVE [facility] Comment on above: Performed By: #### 1 0008 #### [facility] [address] [facility] [place] [address], [facility] Nitrite Ql (U) Negative Normal NEGATIVE [facility] Comment on above: Performed By: #### 1 0008 #### [facility] [address] [facility] [place] [address], [facility] pH (U) 6.0 [pH] Normal 5.0-8.0 [facility] Comment on above: Performed By: #### 1 0008 #### [facility] [address] [place] [address], [facility] Protein Ql (U) 100 mg/dL Abnormal NEGATIVE [facility] Comment on above: Performed By: #### 1 0008 #### [facility] [address] [facility] [place] [address], [facility] RBC 0-2 Abnormal NONE SEEN [facility] Comment on above: Performed By: #### 1 0008 #### [facility] [address] [facility] [place] [address], [facility] SPEC GRAV 1.048 High 1.015-1.020 [facility] Comment on above: Performed By: #### 1 0008 #### [facility] [address] [facility] [place] [address], [facility] WBC UA 0-2 Abnormal NONE SEEN [facility] Comment on above: Performed By: #### 1 0008 #### [facility] [address] [facility]. [place], [place] [id number] [place] [address] VITAMIN B12on 04-11-2021 Cobalamin (Vitamin B12) [Mass/Vol] 1281 pg/mL High 180-914 [facility] Comment on above: Result Comment: REFE RENCE RANGES: 180-914 pg/mL Normal 145-179 pg/mL Indeterminate <145 pg/mL Deficient Performed By: #### 1 0070, 03022 #### [facility] [address] [facility]. [address] VITAMIN D 25-HYDROXYon 04-11 VITAMIN D 25-OH <13.0 Low 30.0-80.0 [facility] Comment on above: Result Comment: >80. 0 Toxicity possible Performed By: #### 1 0070, 49683 #### [facility] [address] [facility] [place] [address], [facility] ALCOHOLon 04-10-2021 Ethanol [Mass/Vol] Not detected Normal [facility] Comment on above: Order Comment: Unkno wn Result Comment: Divi de by 1000 to convert mg/dL to percent. Example: 100mg/dL = 0.1%. Performed By: #### 0 0071, 52423, 36308 #### [facility] [address] [place] [address], [facility] AMMONIA BLOODon 04-10-2021 Ammonia (P) [Moles/Vol] 19 umol/L Normal 16-53 [facility] Comment on above: Performed By: #### 1 69, 38222 #### [facility] [address] [place] [address], [facility] ARTERIAL BLOOD GAS W/COOXon 04-10-2021 BASE EXCESS -1 mmol/L Normal -2-3 [facility] Comment on above: Performed By: #### 1 69, 23407 #### [facility] [address] [facility] [place] [place] [address], [facility] COHB 1.9 % High 0.0-1.5 [facility] Comment on above: Performed By: #### 1 69, 59917 #### [facility] [address] [facility] [place] [address], [facility] [employer] [place] Normal [facility] Comment on above: Performed By: #### 1 69, 39792 #### [facility] [address] [facility] [place] [address], [facility] HCO3 (Bld) [Moles/Vol] 25 mmol/L Normal 21-28 [facility] Comment on above: Performed By: #### 1 69, 85867 #### [facility] [address] [facility] [place] [address], [facility] LPM 3.0 LPM Normal [facility] Comment on above: Performed By: #### 1 69, 50672 #### [facility] [address] [facility] [place] [address], [facility] METHB 0.9 % Normal 0.0-1.5 [facility] Comment on above: Performed By: #### 1 69, 12450 #### [facility] [address] [place] [address], [facility] Oxygen (Bld) [Partial pressure] 108 mm[Hg] Normal 83-108 [facility] Comment on above: Performed By: #### 1 69, 60415 #### [facility] [address] Oxygen saturation in Blood 96.8 % Normal 94.0-97.0 [facility] Comment on above: Performed By: #### 1 69, 80427 #### [facility] [address] PCO2 47 mmHg High 35-45 [facility] Comment on above: Performed By: #### 1 69, 91678 #### [facility] [address] pH (Bld) 7.34 [pH] Low 7.35-7.45 [facility] Comment on above: Performed By: #### 1 69, 00039 #### [facility] [address] THB 11.7 g/dL Low 12.0-16.3 [facility] Comment on above: Performed By: #### 1 69, 08062 #### [facility] [address] CBC W/DIFFon 04-10-2021 ABS IMM GRANS 0.0 10*3/uL Normal 0.0-0.2 [facility] Comment on above: Performed By: #### 3 312 #### [facility] [address] ABS NEUTROPHILS 3.4 10*3/uL Normal 1.6-7.6 [facility] Comment on above: Performed By: #### 3 312 #### [facility] [address] Basophils (Bld) [#/Vol] 0.0 10*3/uL Normal 0.0-0.2 [facility] Comment on above: Performed By: #### 3 0313 #### [facility] [address] [place] [address], [facility] Basophils/100 WBC (Bld) 0.2 % Normal 0.0-1.0 [facility] Comment on above: Performed By: #### 3 0313 #### [facility] [address] [place] [address], [facility] Eosinophils (Bld) [#/Vol] 0.0 10*3/uL Normal 0.0-0.5 [facility] Comment on above: Performed By: #### 3 0313 #### [facility] [address] [place] [address], [facility] Eosinophils/100 WBC (Bld) 0.4 % Normal 0.0-6.0 [facility] Comment on above: Performed By: #### 3 0313 #### [facility] [address] [facility] [address], [facility] Erythrocyte distribution width (RBC) [Ratio] 14.7 % Normal 11.5-15.0 [facility] Comment on above: Performed By: #### 3 0313 #### [facility] [address] [place] [address], [facility] Hematocrit (Bld) [Volume fraction] 39.4 % Normal 36.0-45.0 [facility] Comment on above: Performed By: #### 3 0313 #### [facility] [address] [facility] [place] [address], [facility] Hemoglobin (Bld) [Mass/Vol] 12.6 g/dL Normal 12.0-15.0 [facility] Comment on above: Performed By: #### 3 0313 #### [facility] [address] [place] [address], [facility] IMM PLATELET FRAC 1.4 % Normal 0.8-6.3 [facility] Comment on above: Performed By: #### 3 0313 #### [facility] [address] [place] [address], [facility] IMMATURE GRANS 0.4 % Normal 0.0-1.0 [facility] Comment on above: Performed By: #### 3 3 #### [facility] [address] [facility] [place] [address], [facility] Lymphocytes (Bld) [#/Vol] 0.9 10*3/uL Low 1.2-4.0 [facility] Comment on above: Performed By: #### 3 0313 #### [facility] [address] [place] [address], [facility] Lymphocytes/100 WBC (Bld) 19.3 % Low 20.0-45.0 [facility] Comment on above: Performed By: #### 3 0313 #### [facility] [address] MCH (RBC) [Entitic mass] 28.7 pg Normal 27.0-33.0 [facility] Comment on above: Performed By: #### 3 0313 #### [facility] [address] [place] [address], [facility] MCHC (RBC) [Mass/Vol] 32.0 g/dL Normal 32.0-35.0 [facility] Comment on above: Performed By: #### 3 0313 #### [facility] [address] [place] [address], [facility] MCV (RBC) [Entitic vol] 89.7 fL Normal 82.0-98.0 [facility] Comment on above: Performed By: #### 3 0313 #### [facility] [address] [place] [address], [facility] Monocytes (Bld) [#/Vol] 0.4 10*3/uL Normal 0.1-1.0 [facility] Comment on above: Performed By: #### 3 3 #### [facility] [address] [place] [address], [facility] MONOS 7.4 % Normal 5.0-12.0 [facility] Comment on above: Performed By: #### 3 3 #### [facility] [address] [place] [address], [facility] Neutrophils/100 WBC (Bld) 72.3 % High 40.0-72.0 [facility] Comment on above: Performed By: #### 3 3 #### [facility] [address] [facility] [place] [address], [facility] Nucleated RBC/100 WBC (Bld) [Ratio] 0 % Normal 0-0 [facility] Comment on above: Performed By: #### 3 3 #### [facility] [address] [facility] [place] [address], [facility] PLAT CNT 131 10*3/uL Low 150-400 [facility] Comment on above: Performed By: #### 3 3 #### [facility] [address] [facility] [place] [address], [facility] RBC (Bld) [#/Vol] 4.39 10*6/uL Normal 3.80-5.00 [facility] Comment on above: Performed By: #### 3 3 #### [facility] [address] [facility] [place] [place] [address], [facility] WBC (Bld) [#/Vol] 4.72 10*3/uL Normal 4.00-10.60 [facility] Comment on above: Performed By: #### 3 3 #### [facility] [address] [facility]. [address] COMP METABOLIC PANELon 04-10 Albumin [Mass/Vol] 3.9 g/dL Normal 3.5-5.7 [facility] Comment on above: Performed By: #### 0 0071, 83077, 51573 #### [facility] [address] [place] [address], [place] ALKALINE PHOSPH 102 IU/L Normal 34-104 [facility] Comment on above: Performed By: #### 0 0071, 58827, 56328 #### [facility] [address] [place] [address], [place] ALT [Catalytic activity/Vol] 17 U/L Normal 7-52 [facility] Comment on above: Performed By: #### 0 0071, 48460, 84984 #### [facility] [address] [place] [address], [place] AST [Catalytic activity/Vol] 15 U/L Normal 13-39 [facility] Comment on above: Performed By: #### 0 0071, 82405, 84235 #### [facility] [address] [place] [address], [place] Bilirubin [Mass/Vol] 0.9 mg/dL Normal 0.3-1.0 [facility] Comment on above: Performed By: #### 0 0071, 43094, 83127 #### [facility] [address] [place] [address], [place] Calcium [Mass/Vol] 8.8 mg/dL Normal 8.6-10.3 [facility] Comment on above: Performed By: #### 0 0071, 83038, 88510 #### [facility] [address] [place] [address], [place] Chloride [Moles/Vol] 102 mmol/L Normal 98-107 [facility] Comment on above: Performed By: #### 0 0071, 15229, 60081 #### [facility] [address] [place] [address], [place] CO2 [Moles/Vol] 28 mmol/L Normal 21-31 [facility] Comment on above: Performed By: #### 0 0071, 64318, 90224 #### [facility] [address] [place] [address], [facility] Creatinine [Mass/Vol] 1.62 mg/dL High 0.60-1.20 [facility] Comment on above: Performed By: #### 0 0071, 22920, 36089 #### [facility] [address] [place] [address], [facility] eGFR- 39 ml/min/1.73sq m Abnormal >60 [facility] Comment on above: Performed By: #### 0 0071, 82314, 69085 #### [facility] [address] [place] [address], [place] eGFR- non- 33 ml/min/1.73sq m Abnormal >60 [facility] Comment on above: Performed By: #### 0 0071, 87606, 23620 #### [facility] [address] [place] [address], [facility] Glucose [Mass/Vol] 109 mg/dL High 70-100 [facility] Comment on above: Performed By: #### 0 0071, 13785, 67098 #### [facility] [address] [place] [address], [place] Potassium [Moles/Vol] 2.9 mmol/L Low 3.5-5.1 [facility] Comment on above: Performed By: #### 0 0071, 80262, 62133 #### [facility] [address] [place] [address], [place] Protein [Mass/Vol] 5.6 g/dL Low 6.0-8.3 [facility] Comment on above: Performed By: #### 0 0071, 77665, 66202 #### [facility] [address] [place] [address], [place] Sodium [Moles/Vol] 138 mmol/L Normal 136-145 [facility] Comment on above: Performed By: #### 0 0071, 43291, 97035 #### [facility] [address] [facility]. [place], [place] [id number] [place] [address] Urea nitrogen [Mass/Vol] 14 mg/dL Normal 7-25 [facility] Comment on above: Performed By: #### 0 0071, 17407, 77870 #### [facility] [address] [facility] [place], [place] [id number] [place] [address] CT ABDOMEN AND PELVIS W IV C ONTRASTon 04-10-2021 CT ABDOMEN AND PELVIS W IV CONTRAST [facility] Department of Radiology [address] [place] [address] == Patient Name: ALFIE HOGAN : 1960 Sex: F Age: Race: White Pt. Location: [facility] Patient Status: E Ordered Date: 04/10/2021 4:15:00 PM Completed Date: 04/10/2021 05:18 PM Requesting Provider: DEMI ALLEN Attending Provider: MIRA YEAGER Report Copy To: Signs & Symptoms: Abdominal Pain(specify) History: See Comments Comments: Obstruction Exam: CT ABDOMEN AND PELVIS W IV CONTRAST == CT ABDOMEN AND PELVIS W IV CONTRAST 04/10/2021 5:18 PM SIGNS AND SYMPTOMS: Abdominal Pain(specify) TECHNOLOGIST COMMENTS: confusion not making sense not understanding commands without repeating them pt has abd pain and states she has not had a bm in 13 days diffuse abd pain QUESTION FOR THE RADIOLOGIST: Obstruction PROTOCOL: Axial CT images of the abdomen/pelvis were obtained with IV contrast. TECHNIQUE: Multidetector ct axial images of the abdomen and pelvis were obtained with IV contrast. Multiplanar reformats were performed and viewed on a separate workstation and reviewed to further define anatomy and possible pathology. Appropriate CT dose lowering techniques were utilized. COMPARISON: None. FINDINGS: Lower Chest: Atherosclerotic changes are noted in the coronary arteries and thoracic aorta. There is linear scarring or atelectasis in the lung bases. ABDOMEN: Liver: There is a 14 mm hypoattenuating structure in the right hepatic lobe. This may represent a cyst or hemangioma but is of uncertain etiology. Bile Ducts: Normal caliber. Gallbladder: Previously removed. Pancreas: Within normal limits. Spleen: Within normal limits. Adrenals: Within normal limits. Kidneys: There is a peripherally enhancing 15 mm lesion exophytic from the right renal cortex. Additional simple appearing cysts are noted bilaterally. There is no evidence of hydronephrosis. Pelvis: Reproductive Organs: No pelvic masses. Ureters: Within normal limits. Bladder: Within normal limits. Bowel: There are uncomplicated colonic diverticula. There is no evidence of bowel obstruction. There is evidence of prior appendectomy. Mesenteric Lymph Nodes: No enlarged mesenteric lymph nodes. Peritoneum: No ascites or free air, no fluid collection. Vessels: Atherosclerotic changes are noted in the abdominal aorta and its axis. Retroperitoneum: Within normal limits. Abdominal Wall: Within normal limits. Bones: Postoperative changes are noted in the lower lumbar spine and hips. Degenerative changes are noted in the thoracolumbar spine with a levoconvex curvature of the lumbar spine. Degenerative changes are noted in the sacroiliac joints. IMPRESSION: There is no evidence of bowel obstruction or obstructive uropathy. There are uncomplicated colonic diverticula. There is evidence of prior appendectomy. There is a peripherally enhancing 15 mm lesion exophytic from the right renal cortex. This is suspicious for malignancy. Further evaluation with contrast-enhanced MRI of the kidneys is recommended. There is a 14 mm hypoattenuating structure in the right hepatic lobe. This may represent a cyst or hemangioma. However, metastatic disease is not excluded. Electronically signed: Ami Titus. Transcribed by: [email or web address], User Resident: Electronically Signed by: AMI TITUS @ 04/10/2021 05:35 PM Normal [facility] Comment on above: Order Comment: Obstr uction CT BRAIN WO CONTRASTon 04-10 CT BRAIN WO CONTRAST [facility] Department of Radiology [address] [place] [id number] == Patient Name: ALFIE HOGAN : 1960 Sex: F Age: Race: White Pt. Location: [facility] Patient Status: E Ordered Date: 04/10/2021 4:45:00 PM Completed Date: 04/10/2021 05:16 PM Requesting Provider: DEMI ALLEN Attending Provider: MIRA YEAGER Report Copy To: Signs & Symptoms: Other History: See Comments Comments: Subdural Exam: CT BRAIN WO CONTRAST == CT BRAIN WO CONTRAST 04/10/2021 5:16 PM SIGNS AND SYMPTOMS: Other TECHNOLOGIST COMMENTS: confusion not making sense not understanding commands without repeating them pt has abd pain and states she has not had a bm in 13 days QUESTION FOR THE RADIOLOGIST: Subdural PROTOCOL: Axial CT images of the head were obtained without IV contrast. TECHNIQUE:Multi-detector CT axial slices of the brain were obtained without IV contrast. Helical,sagittal, coronal, and 3-D reconstructions were performed and viewed on a separate workstation. Appropriate CT dose lowering techniques were utilized. COMPARISON: None. FINDINGS: There is no shift of the midline structures, acute intracranial bleeding, mass effects, or evidence of acute ischemia. There is diffuse age-related cortical atrophy which is more pronounced in the frontal lobes bilaterally. The ventricular system is normal in size. The brainstem and the cerebellum are unremarkable. There is partial opacification of the right frontal sinus, ethmoid air cells, sphenoid sinuses,, visualized maxillary sinuses, and bilateral mastoid air cells. The visualized intraorbital contents and the infratemporal soft tissues show no acute abnormality. The osseous structures in the skull base and the calvarium show no abnormality. IMPRESSION: No acute cranial pathology. There is diffuse age-related cortical atrophy which is more pronounced in the frontal lobes bilaterally. There is partial opacification of the paranasal sinuses and mastoid air cells bilaterally. Electronically signed: Ami Titus. Transcribed by: [email or web address], User Resident: Electronically Signed by: AMI TITUS @ 04/10/2021 05:27 PM Normal [facility] Comment on above: Order Comment: Subdu ral LIPASE BLOODon 04-10-2021 LIPASE 20 Units/L Normal [facility] Comment on above: Performed By: #### 0 0071, 73898, 82190 #### [address] PORTABLE CHEST 1 VIEWon PORTABLE CHEST 1 VIEW [facility] Department of Radiology [address] [place] [id number] == Patient Name: ALFIE HOGAN : 1960 Sex: F Age: Race: White Pt. Location: [facility] Patient Status: E Ordered Date: 04/10/2021 4:30:00 PM Completed Date: 04/10/2021 05:13 PM Requesting Provider: DEMI ALLEN Attending Provider: MIRA YEAGER Report Copy To: Signs & Symptoms: O2 Desaturation History: Comments: Evaluate for Atelectasis Exam: PORTABLE CHEST 1 VIEW == PORTABLE CHEST 1 VIEW 04/10/2021 5:13 PM CLINICAL INDICATIONS: O2 Desaturation TECHNOLOGIST COMMENTS: Patient states constipation. No chest complaints at this time. QUESTION FOR THE RADIOLOGIST: Evaluate for Atelectasis PROTOCOL: AP(PA) view was obtained. COMPARISON: None FINDINGS: The trachea is midline. Atherosclerotic changes are present in the thoracic aorta. The heart is normal in size. Interstitial prominence is noted along with airspace opacities, greatest at the left lung base. The bony structures are grossly intact with a dextro convex curvature of the thoracic spine. IMPRESSION: Interstitial prominence is noted along with airspace opacities, greatest at the left lung base. This may represent developing atelectasis or pneumonia. Electronically signed: Ami Titus. Transcribed by: [email or web address], User Resident: Electronically Signed by: AMI TITUS @ 04/10/2021 05:17 PM Normal [facility] Comment on above: Order Comment: Unkno wn TROPONIN-Ion 04-10-2021 Troponin I.cardiac [Mass/Vol] 0.00 ng/mL Normal 0.00-0.04 [facility] Comment on above: Result Comment: REFE RENCE RANGES: 0.00 - 0.04 ng/ml NORMAL 0.05 - 0.50 ng/ml INDETERMINATE > 0.50 ng/ml CONSISTENT WITH AN M.I. Performed By: #### 0 0071, 44190, 13408 #### [facility] [address] [place] [address], [facility] Basic Metabolic Panelon 08-03 Calcium [Mass/Vol] 9.1 mg/dL Normal 8.4-10.4 [facility] [employer] [facility] Comment on above: Performed By: #### H EMOG, BMP3M, MG3 #### [employer] [facility] [address] [place] [address] Anion gap [Moles/Vol] 6 mmol/L Normal 3-13 [facility] Comment on above: Performed By: #### H EMOShira, BMP3M, MG3 #### [address] CO2 [Moles/Vol] 29 mmol/L Normal 22-30 [facility] Comment on above: Performed By: #### H EMOG, BMP3M, MG3 #### [address] Creatinine [Mass/Vol] 0.96 mg/dL Normal 0.52-1.25 [facility] Comment on above: Performed By: #### H EMOG, BMP3M, MG3 #### [address] GFR/1.73 sq M predicted among blacks MDRD (S/P/Bld) [Vol rate/Area] 75.2 mL/min/{1.73_m2} Normal >60 [facility] Comment on above: Performed By: #### H EMOG, BMP3M, MG3 #### [address] GFR/1.73 sq M predicted among non-blacks MDRD (S/P/Bld) [Vol rate/Area] 64.9 mL/min/{1.73_m2} Normal >60 [facility] Comment on above: Result Comment: KDIG O guidelines provide the following GFR categories: Stage GFR(ml/min/1.73 m2) Terms G1 >=90 Normal or high G2 60-89 Mildly decreased* G3a 45-59 Mildly to moderately decreased G3b 30-44 Moderately to severely decreased G4 15-29 Severely decreased G5 <15 Kidney failure *Relative to young adult level. In the absence of evidence of kidney damage, neither GFR category G1 nor G2 fulfill the criteria for CKD. The CKD-EPI equation is validated in individuals 18 years of age and older. Currently the best equation for estimating glomerular filtration rate (GFR) from serum creatinine in children is the Bedside Vásquez equation. It is less accurate in patients with extremes of muscle mass, restriction of dietary protein, ingestion of creatine, extra-renal metabolism of creatinine, or treatment with medications that affect renal tubular creatinine secretion. Performed By: #### H EMOShira, BMP3M, MG3 #### [facility] [address] [place], [place] Glucose [Mass/Vol] 167 mg/dL High 70-100 [facility] Comment on above: Performed By: #### H EMOG, BMP3M, MG3 #### [place] [address] [address] [place], [place] Urea nitrogen [Mass/Vol] 13 mg/dL Normal 7-20 [facility] Comment on above: Performed By: #### H EMOShira, BMP3M, MG3 #### [place] [address] [address] [place], [place] Chloride [Moles/Vol] 102 mmol/L Normal 98-107 [facility] Comment on above: Performed By: #### H EMOShira, BMP3M, MG3 #### [place] [address] [address] [place], [place] Potassium [Moles/Vol] 3.4 mmol/L Low 3.5-5.1 [facility] Comment on above: Performed By: #### H BENRA BMP3M, MG3 #### [place] [address] [address] [place], [place] Sodium [Moles/Vol] 137 mmol/L Normal 135-145 [facility] Comment on above: Performed By: #### H EMOShira, BMP3M, MG3 #### [place] [address] [address] [place], [place] Basic Metabolic Panel w/ Ref kaushal to MG 08-26-2020 Anion gap [Moles/Vol] 6 mmol/L 3 - 13 mmol/L [facility] Work Phone: Calcium [Mass/Vol] 9.1 mg/dL 8.4 - 10. 4 mg/dL [facility] Work Phone: Chloride [Moles/Vol] 102 mmol/L 98 - 10 7 mmol/L [facility] Work Phone: CO2 [Moles/Vol] 29 mmol/L 22 - 30 mmol/L [facility] Work Phone: Creatinine [Mass/Vol] 0.96 mg/dL 0.52 - 1.25 mg/dL [employer] Work Phone: EGFR IF NonAfrican Maltese 64.9 mL/min >60 [employer] Work Phone: Comment on above: KDIGO guidelines pro vide the following GFR categories: Stage GFR(ml/min/1.73 m2) Terms G1 >=90 Normal or high G2 60-89 Mildly decreased* G3a 45-59 Mildly to moderately decreased G3b 30-44 Moderately to severely decreased G4 15-29 Severely decreased G5 <15 Kidney failure *Relative to young adult level. In the absence of evidence of kidney damage, neither GFR category G1 nor G2 fulfill the criteria for CKD. The CKD-EPI equation is validated in individuals 18 years of age and older. Currently the best equation for estimating glomerular filtration rate (GFR) from serum creatinine in children is the Bedside Vásquez equation. It is less accurate in patients with extremes of muscle mass, restriction of dietary protein, ingestion of creatine, extra-renal metabolism of creatinine, or treatment with medications that affect renal tubular creatinine secretion. GFR/1.73 sq M predicted among blacks MDRD (S/P/Bld) [Vol rate/Area] 75.2 mL/min/{1.73_m2} >60 [facility] Work Phone: [phone] Glucose [Mass/Vol] 167 mg/dL High 70 - 100 mg/dL [employer] Phone: [phone] Potassium [Moles/Vol] 3.4 mmol/L Low 3.5 - 5.1 mmol/L [facility] Work Phone: Sodium [Moles/Vol] 137 mmol/L 135 - 145 mmol/L [employer] Work Phone: Urea nitrogen [Mass/Vol] 13 mg/dL 7 - 20 mg/dL [employer] Phone: CBCon 08-26-2020 Erythrocyte distribution width (RBC) [Ratio] 13.6 % 11.5 - 14.5 % [employer] Phone: Hematocrit (Bld) [Volume fraction] 32.7 % Low 35.0 - 47.0 % [facility] Work Phone: [phone] Hemoglobin (Bld) [Mass/Vol] 10.7 g/dL Low 11.7 - 16.0 g/dL [facility] Work Phone: [phone] Interpretation and review of laboratory results Abnormal [facility] Work Phone: [phone] MCH (RBC) [Entitic mass] 29.0 pg 26.0 - 34.0 pg [facility] Work Phone: [phone] MCHC (RBC) [Mass/Vol] 32.8 % 32.0 - 36.0 % [facility] Work Phone: [phone] MCV (RBC) [Entitic vol] 88.5 fL 79.0 - 98.0 fL [facility] Work Phone: [phone] Platelet mean volume (Bld) [Entitic vol] 8.2 fL 7.4 - 10.4 fL [facility] Work Phone: [phone] Platelets (Bld) [#/Vol] 116 10*3/uL Low 140 - 440 10*3/uL [facility] Work Phone: [phone] RBC (Bld) [#/Vol] 3.70 10*6/uL Low 3.80 - 5.2 0 10*6/uL [facility] Work Phone: [phone] WBC (Bld) [#/Vol] 3.8 10*3/uL 3.6 - 10.7 10*3/uL [facility] Work Phone: [phone] Test Performed by [facility] [employer] [facility], [address] [place] [address] [facility] Work Phone: [phone] EKG 12 [place] 08-26-2020 [facility] Test Date: 2020-08-25 Pat Name: Alfie Hogan Department: 1A4N Room: 1446 Gender: F Loss Prevention Specialist: ELISSA : 1960 Requested By: SARAHY MOTTA Order Number: [id number] Reading MD: Eric Subramanian Measurements Intervals [place] Rate: 93 P: 42 [place]: 156 QRS: 66 QRSD: 153 T: -8 QT: 418 QTc: 520 Interpretive Statements Sinus rhythm Right bundle branch block Electronically Signed On 08-26-2020 13:52:00 EDT by Eric GALLO Work Phone: [facility], [facility] In[facility] Card[facility] Results From [facility] - 08/26/2020 1:53 PM EDT [facility] [employer] [facility] Test Date: 2020-08-25 Pat Name: Alfie Hogan Department: 1A4N Room: 1446 Gender: F Loss Prevention Specialist: ELISSA : 1960 Requested By: SARAHY MOTTA Order Number: [id number] Reading MD: Eric Subramanian Measurements Intervals [place] Rate: 93 P: 42 [place]: 156 QRS: 66 QRSD: 153 T: -8 QT: 418 QTc: 520 Interpretive Statements Sinus rhythm Right bundle branch block Electronically Signed On 08-26-2020 13:52:00 EDT by Eric GALLO Work Phone: Hemogramon 08-26-2020 Erythrocyte distribution width (RBC) [Ratio] 13.6 % Normal 11.5-14.5 [facility] Comment on above: Performed By: #### H EMOG, BMP3M, MG3 #### [employer] [address] [place] [address] Hematocrit (Bld) [Volume fraction] 32.7 % Low 35.0-47.0 [facility] Comment on above: Performed By: #### H EMOG, BMP3M, MG3 #### [employer] [address] [place] [address] Hemoglobin (Bld) [Mass/Vol] 10.7 g/dL Low 11.7-16.0 [facility] Comment on above: Performed By: #### H EMOG, BMP3M, MG3 #### [employer] [address] MCH (RBC) [Entitic mass] 29.0 pg Normal 26.0-34.0 [facility] Comment on above: Performed By: #### H EMOG, BMP3M, MG3 #### [employer] [address] MCHC (RBC) [Mass/Vol] 32.8 % Normal 32.0-36.0 [facility] Comment on above: Performed By: #### H EMOShira, BMP3M, MG3 #### [place] [address] [address] [place], [place] MCV (RBC) [Entitic vol] 88.5 fL Normal 79.0-98.0 [facility] Comment on above: Performed By: #### H EMOG, BMP3M, MG3 #### [place] [address] [address] [place], [place] Platelet mean volume (Bld) [Entitic vol] 8.2 fL Normal 7.4-10.4 [facility] Comment on above: Performed By: #### H EMOG, BMP3M, MG3 #### [place] [address] [address] [place], [place] Platelets (Bld) [#/Vol] 116 10*3/uL Low 140-440 [facility] Comment on above: Performed By: #### H EMOG, BMP3M, MG3 #### [place] [address] [address] [place], [place] RBC (Bld) [#/Vol] 3.70 10*6/uL Low 3.80-5.20 [facility] Comment on above: Performed By: #### H EMOG, BMP3M, MG3 #### [place] [address] [address] [place], [place] WBC (Bld) [#/Vol] 3.8 10*3/uL Normal 3.6-10.7 [facility] Comment on above: Performed By: #### H EMOG, BMP3M, MG3 #### [place] [address] [address] [place], [place] Magnesiumon 08-26-2020 Magnesium [Mass/Vol] 1.5 mg/dL Low 1.6-2.3 [facility] Comment on above: Performed By: #### H EMOG, BMP3M, MG3 #### [place] [address] [address] [place], [place] Magnesium [Mass/Vol] 1.5 mg/dL Low 1.6 - 2 .3 mg/dL [facility] Work Phone: Otheron 08-26-2020 Interpretation and review of laboratory results Abnormal [facility] Work Phone: Test Performed by [facility], [facility] [place] [address] [facility] Work Phone: Add On Lab Teston 08-25-2020 Sodium [Moles/Vol] Accepted [facility] Work Phone: Comment on above: Specimen available & acceptable for analysis. Test Performed by [facility], [facility] [place] [address] [facility] Work Phone: Sodium [Moles/Vol] Accepted [facility] Work Phone: Comment on above: Specimen available & acceptable for analysis. Test Performed by [facility], [facility] [place] [address] [facility] Work Phone: Add on test from HISon 08-25 Add on test from HIS Accepted Normal [facility] Comment on above: Result Comment: Spec imen available & acceptable for analysis. Performed By: #### H BERNA, BMP3M, MG3 #### [employer] [facility] [address] [place] [address] Add on test from HIS Accepted Normal [facility] Comment on above: Result Comment: Spec imen available & acceptable for analysis. Performed By: #### H EMOG, BMP3M, MG3 #### [employer] [facility] [address] [place] [address] Albuminon 08-25-2020 Albumin [Mass/Vol] 3.4 g/dL Low 3.5 - 5.0 g/dL [facility] Work Phone: Comment on above: Slightly hemolysed, interpret with caution. Interpretation and review of laboratory results Abnormal [facility] Work Phone: Albumin, Serumon 08-25-2020 Albumin [Mass/Vol] 3.4 g/dL Low 3.5-5.0 [facility] Comment on above: Result Comment: Slig htly hemolysed, interpret with caution. Performed By: #### H EMOShira, BMP3M, MG3 #### [facility] [address] [place], [place] Basic Metabolic Panelon -2 Anion gap [Moles/Vol] 7 mmol/L Normal 3-13 [facility] Comment on above: Performed By: #### H EMOShira, BMP3M, MG3 #### [facility] [address] [place], [place] Calcium [Mass/Vol] 7.8 mg/dL Low 8.4-10.4 [facility] Comment on above: Performed By: #### H EMOShira, BMP3M, MG3 #### [place] [address] [address] [place], [place] CO2 [Moles/Vol] 24 mmol/L Normal 22-30 [facility] Comment on above: Performed By: #### H EMOShira, BMP3M, MG3 #### [place] [address] [address] [place], [place] Glucose [Mass/Vol] 156 mg/dL High 70-100 [facility] Comment on above: Performed By: #### H EMOShira, BMP3M, MG3 #### [place] [address] [address] [place], [place] Urea nitrogen [Mass/Vol] 16 mg/dL Normal 7-20 [facility] Comment on above: Performed By: #### H EMOShira, BMP3M, MG3 #### [place] [address] [address] [place], [place] Creatinine [Mass/Vol] 0.89 mg/dL Normal 0.52-1.25 [facility] Comment on above: Performed By: #### H EMOShira, BMP3M, MG3 #### [facility] [address] [place], [place] GFR/1.73 sq M predicted among blacks MDRD (S/P/Bld) [Vol rate/Area] 82.4 mL/min/{1.73_m2} Normal >60 [facility] Comment on above: Performed By: #### H LEYDI CORONEL3M, MG3 #### [address] GFR/1.73 sq M predicted among non-blacks MDRD (S/P/Bld) [Vol rate/Area] 71.1 mL/min/{1.73_m2} Normal >60 [facility] Comment on above: Result Comment: KDIG O guidelines provide the following GFR categories: Stage GFR(ml/min/1.73 m2) Terms G1 >=90 Normal or high G2 60-89 Mildly decreased* G3a 45-59 Mildly to moderately decreased G3b 30-44 Moderately to severely decreased G4 15-29 Severely decreased G5 <15 Kidney failure *Relative to young adult level. In the absence of evidence of kidney damage, neither GFR category G1 nor G2 fulfill the criteria for CKD. The CKD-EPI equation is validated in individuals 18 years of age and older. Currently the best equation for estimating glomerular filtration rate (GFR) from serum creatinine in children is the Bedside Vásquez equation. It is less accurate in patients with extremes of muscle mass, restriction of dietary protein, ingestion of creatine, extra-renal metabolism of creatinine, or treatment with medications that affect renal tubular creatinine secretion. Performed By: #### H LEYDI CORONEL3Toshia, MG3 #### [address] Chloride [Moles/Vol] 106 mmol/L Normal 98-107 [facility] Comment on above: Performed By: #### H CHERIE CORONEL, MG3 #### [address] Potassium [Moles/Vol] 2.9 mmol/L Low 3.5-5.1 [facility] Comment on above: Result Comment: Slig htly hemolysed, interpret with caution. Performed By: #### H LEYDI CORONEL3M, MG3 #### [address] Sodium [Moles/Vol] 137 mmol/L Normal 135-145 [facility] Comment on above: Performed By: #### H LEYDI CORONEL3M, MG3 #### [address] [place] [address] Basic Metabolic Panel w/ Ref kaushal to MGon 08-25-2020 Anion gap [Moles/Vol] 7 mmol/L 3 - 13 mmol/L [employer] Work Phone: Calcium [Mass/Vol] 7.8 mg/dL Low 8.4 - 10. 4 mg/dL [facility] Work Phone: Chloride [Moles/Vol] 106 mmol/L 98 - 10 7 mmol/L [facility] Work Phone: CO2 [Moles/Vol] 24 mmol/L 22 - 30 mmol/L [employer] Work Phone: Creatinine [Mass/Vol] 0.89 mg/dL 0.52 - 1.25 mg/dL [facility] Work Phone: EGFR IF NonAfrican Maltese 71.1 mL/min >60 [facility] Work Phone: Comment on above: KDIGO guidelines pro vide the following GFR categories: Stage GFR(ml/min/1.73 m2) Terms G1 >=90 Normal or high G2 60-89 Mildly decreased* G3a 45-59 Mildly to moderately decreased G3b 30-44 Moderately to severely decreased G4 15-29 Severely decreased G5 <15 Kidney failure *Relative to young adult level. In the absence of evidence of kidney damage, neither GFR category G1 nor G2 fulfill the criteria for CKD. The CKD-EPI equation is validated in individuals 18 years of age and older. Currently the best equation for estimating glomerular filtration rate (GFR) from serum creatinine in children is the Bedside Vásquez equation. It is less accurate in patients with extremes of muscle mass, restriction of dietary protein, ingestion of creatine, extra-renal metabolism of creatinine, or treatment with medications that affect renal tubular creatinine secretion. GFR/1.73 sq M predicted among blacks MDRD (S/P/Bld) [Vol rate/Area] 82.4 mL/min/{1.73_m2} >60 [facility] Work Phone: Glucose [Mass/Vol] 156 mg/dL High 70 - 100 mg/dL [facility] Work Phone: Interpretation and review of laboratory results Abnormal [facility] Work Phone: [phone] Potassium [Moles/Vol] 2.9 mmol/L Low 3.5 - 5.1 mmol/L [employer] Work Phone: Comment on above: Slightly hemolysed, interpret with caution. Sodium [Moles/Vol] 137 mmol/L 135 - 145 mmol/L [employer] Work Phone: [phone] Urea nitrogen [Mass/Vol] 16 mg/dL 7 - 20 mg/dL [facility] Work Phone: CBCon 08-25-2020 Erythrocyte distribution width (RBC) [Ratio] 13.8 % 11.5 - 14.5 % [employer] Work Phone: Hematocrit (Bld) [Volume fraction] 33.2 % Low 35.0 - 47.0 % [facility] Work Phone: Hemoglobin (Bld) [Mass/Vol] 11.1 g/dL Low 11.7 - 16.0 g/dL [facility] Work Phone: Interpretation and review of laboratory results Abnormal [facility] Work Phone: MCH (RBC) [Entitic mass] 29.9 pg 26.0 - 34.0 pg [employer] Work Phone: MCHC (RBC) [Mass/Vol] 33.4 % 32.0 - 36.0 % [facility] Work Phone: MCV (RBC) [Entitic vol] 89.7 fL 79.0 - 98.0 fL [facility] Work Phone: Platelet mean volume (Bld) [Entitic vol] 8.0 fL 7.4 - 10.4 fL [employer] Work Phone: [phone] Platelets (Bld) [#/Vol] 104 10*3/uL Low 140 - 440 10*3/uL [employer] Work Phone: [phone] RBC (Bld) [#/Vol] 3.70 10*6/uL Low 3.80 - 5.2 0 10*6/uL [employer] Work Phone: [phone] WBC (Bld) [#/Vol] 3.2 10*3/uL Low 3.6 - 10.7 10*3/uL [facility] Work Phone: Test Performed by [facility], [address] [place] [address] [facility] Work Phone: Hemogramon 08-25-2020 Erythrocyte distribution width (RBC) [Ratio] 13.8 % Normal 11.5-14.5 [facility] Comment on above: Performed By: #### H EMOG, BMP3M, MG3 #### [place] [address] [place] Hematocrit (Bld) [Volume fraction] 33.2 % Low 35.0-47.0 [facility] Comment on above: Performed By: #### H EMOShira, BMP3M, MG3 #### [address] Hemoglobin (Bld) [Mass/Vol] 11.1 g/dL Low 11.7-16.0 [facility] Comment on above: Performed By: #### H EMOG, BMP3M, MG3 #### [place] [address] [place] MCH (RBC) [Entitic mass] 29.9 pg Normal 26.0-34.0 [facility] Comment on above: Performed By: #### H EMOG, BMP3M, MG3 #### [place] [address] [place] MCHC (RBC) [Mass/Vol] 33.4 % Normal 32.0-36.0 [facility] Comment on above: Performed By: #### H EMOG, BMP3M, MG3 #### [place] [address] [address] [place], [place] MCV (RBC) [Entitic vol] 89.7 fL Normal 79.0-98.0 [facility] Comment on above: Performed By: #### H EMOG, BMP3M, MG3 #### [address] Platelet mean volume (Bld) [Entitic vol] 8.0 fL Normal 7.4-10.4 [facility] Comment on above: Performed By: #### H EMOG, BMP3M, MG3 #### [facility] [address] [place], [place] Platelets (Bld) [#/Vol] 104 10*3/uL Low 140-440 [facility] Comment on above: Performed By: #### H EMOG, BMP3M, MG3 #### [place] [address] [address] [place], [place] RBC (Bld) [#/Vol] 3.70 10*6/uL Low 3.80-5.20 [facility] Comment on above: Performed By: #### H EMOG, BMP3M, MG3 #### [place] [address] [address] [place], [place] WBC (Bld) [#/Vol] 3.2 10*3/uL Low 3.6-10.7 [facility] Comment on above: Performed By: #### H EMOG, BMP3M, MG3 #### [place] [address] [address] [place], [place] Lactic Acidon 08-25-2020 Lactate [Moles/Vol] 1.7 mmol/L Normal 0.7-2.0 [facility] Comment on above: Performed By: #### H EMOG, BMP3M, MG3 #### [place] [address] [address] [place] Lactate [Moles/Vol] 2.3 mmol/L Critically high 0.7-2.0 [facility] Comment on above: Performed By: #### H EMOG, BMP3M, MG3 #### [place] [address] [address] [place] Lactate [Moles/Vol] 1.1 mmol/L Normal 0.7-2.0 [facility] Comment on above: Performed By: #### C MP3, HEMDF, PHOS3, LACT3, MG3, ETOH4, QWAL #### [place] [address] [address] [place], [place] Lactic Acid, Plasmaon 2020 Lactate [Moles/Vol] 1.7 mmol/L 0.7 - 2. 0 mmol/L [facility] Work Phone: [phone] Test Performed by [facility], [address] [place] [id number] [facility] Work Phone: [phone] Interpretation and review of laboratory results Abnormal [facility] Work Phone: [phone] Lactate [Moles/Vol] 2.3 mmol/L Critically high 0.7 - 2.0 mmol/L [facility] Work Phone: [phone] Test Performed by [facility], [address] [place] [address] [facility] Work Phone: [phone] Lactate [Moles/Vol] 1.1 mmol/L 0.7 - 2. 0 mmol/L [facility] Work Phone: [phone] Test Performed by [facility], [address] [place] [address] [facility] Work Phone: [phone] Magnesiumon 08-25-2020 Magnesium [Mass/Vol] 1.8 mg/dL Normal 1.6-2.3 [facility] Comment on above: Result Comment: Slig htly hemolysed, interpret with caution. Performed By: #### H EMOG, BMP3M, MG3 #### [facility] [employer] [address] [address] Magnesium [Mass/Vol] 1.8 mg/dL 1.6 - 2 .3 mg/dL [facility] Work Phone: [phone] Comment on above: Slightly hemolysed, interpret with caution. Otheron 08-25-2020 Test Performed by [facility], [address] [place] [address] [facility] Work Phone: [phone] Test Performed by [facility], [address] [place] [id number] [facility] Work Phone: [phone] Phosphoruson 08-25-2020 Phosphate [Mass/Vol] 3.1 mg/dL Normal 2.5-4.5 [facility] Comment on above: Result Comment: Slig htly hemolysed, interpret with caution. Performed By: #### H EMOG, BMP3M, MG3 #### [facility] [employer] [facility] [place] [address] Phosphate [Mass/Vol] 3.1 mg/dL 2.5 - 4 .5 mg/dL [facility] Work Phone: Comment on above: Slightly hemolysed, interpret with caution. Add On Lab Teston 08-24-2020 Sodium [Moles/Vol] Accepted [facility] Work Phone: Comment on above: Specimen available & acceptable for analysis. Test Performed by [facility] [employer] [facility], [address] [place] [address] [facility] Work Phone: Add on test from HISon 08-24 Add on test from HIS Accepted Normal [facility] Comment on above: Result Comment: Spec imen available & acceptable for analysis. Performed By: #### H EMOG, BMP3M, MG3 #### [facility] [employer] [facility] [place] [address] COVID-19on 08-24-2020 SARS-CoV-2 Not Detected. Not Detected [facility] Work Phone: Comment on above: Not Detected. Expected Result: Not Detected _ Real-time, RT-PCR performed on the [employer] by the [facility]. Negative results do not preclude SARS-CoV-2 infection and should not be used as the sole basis for treatment or other patient management decisions. This assay was developed by [employer] and distributed under an Emergency Use Authorization (EUA) granted by the FDA for the qualitative detection of SARS-CoV-2 nucleic acid. Test Performed by [facility], [address] [place] [address] Comp Metabolic Panelon 08-24 ALP [Catalytic activity/Vol] 106 U/L Normal 38-126 [facility] Comment on above: Performed By: #### C MP3, HEMDF, PHOS3, LACT3, MG3, ETOH4, QWAL #### [facility] [employer] [facility] [place] [address] ALT [Catalytic activity/Vol] 28 U/L Normal 0-34 [facility] Comment on above: Result Comment: The ALT test is performed by an updated assay method. Please note that the reference intervals have been changed and are now sex specific. Performed By: #### C MP3, HEMDF, PHOS3, LACT3, MG3, ETOH4, QWAL #### [place] [address] [address] [place], [place] Calcium [Mass/Vol] 9.4 mg/dL Normal 8.4-10.4 [facility] Comment on above: Performed By: #### C MP3, HEMDF, PHOS3, LACT3, MG3, ETOH4, QWAL #### [place] [address] [address] [place], [place] Glucose [Mass/Vol] 164 mg/dL High 70-100 [facility] Comment on above: Performed By: #### C MP3, HEMDF, PHOS3, LACT3, MG3, ETOH4, QWAL #### [place] [address] [place] Urea nitrogen [Mass/Vol] 15 mg/dL Normal 7-20 [facility] Comment on above: Performed By: #### C MP3, HEMDF, PHOS3, LACT3, MG3, ETOH4, QWAL #### [place] [address] [place] Anion gap [Moles/Vol] 15 mmol/L High 3-13 [facility] Comment on above: Performed By: #### C MP3, HEMDF, PHOS3, LACT3, MG3, ETOH4, QWAL #### [place] [address] [place] AST [Catalytic activity/Vol] 35 U/L Normal 15-46 [facility] Comment on above: Performed By: #### C MP3, HEMDF, PHOS3, LACT3, MG3, ETOH4, QWAL #### [place] [address] [place] Bilirubin [Mass/Vol] 0.9 mg/dL Normal 0.2-1.3 [facility] Comment on above: Performed By: #### C MP3, HEMDF, PHOS3, LACT3, MG3, ETOH4, QWAL #### [address] CO2 [Moles/Vol] 25 mmol/L Normal 22-30 [facility] Comment on above: Performed By: #### C MP3, HEMDF, PHOS3, LACT3, MG3, ETOH4, QWAL #### [address] Creatinine [Mass/Vol] 1.00 mg/dL Normal 0.52-1.25 [facility] Comment on above: Performed By: #### C MP3, HEMDF, PHOS3, LACT3, MG3, ETOH4, QWAL #### [address] GFR/1.73 sq M predicted among blacks MDRD (S/P/Bld) [Vol rate/Area] 71.6 mL/min/{1.73_m2} Normal >60 [facility] Comment on above: Performed By: #### C MP3, HEMDF, PHOS3, LACT3, MG3, ETOH4, QWAL #### [address] GFR/1.73 sq M predicted among non-blacks MDRD (S/P/Bld) [Vol rate/Area] 61.7 mL/min/{1.73_m2} Normal >60 [facility] Comment on above: Result Comment: KDIG O guidelines provide the following GFR categories: Stage GFR(ml/min/1.73 m2) Terms G1 >=90 Normal or high G2 60-89 Mildly decreased* G3a 45-59 Mildly to moderately decreased G3b 30-44 Moderately to severely decreased G4 15-29 Severely decreased G5 <15 Kidney failure *Relative to young adult level. In the absence of evidence of kidney damage, neither GFR category G1 nor G2 fulfill the criteria for CKD. The CKD-EPI equation is validated in individuals 18 years of age and older. Currently the best equation for estimating glomerular filtration rate (GFR) from serum creatinine in children is the Bedside Vásquez equation. It is less accurate in patients with extremes of muscle mass, restriction of dietary protein, ingestion of creatine, extra-renal metabolism of creatinine, or treatment with medications that affect renal tubular creatinine secretion. Performed By: #### C MP3, HEMDF, PHOS3, LACT3, MG3, ETOH4, QWAL #### [place] [address] [address] [place], [place] Protein [Mass/Vol] 7.5 g/dL Normal 6.3-8.2 [facility] Comment on above: Performed By: #### C MP3, HEMDF, PHOS3, LACT3, MG3, ETOH4, QWAL #### [place] [address] [address] [place] Chloride [Moles/Vol] 100 mmol/L Normal 98-107 [facility] Comment on above: Performed By: #### C MP3, HEMDF, PHOS3, LACT3, MG3, ETOH4, QWAL #### [place] [address] [address] [place] Potassium [Moles/Vol] 3.4 mmol/L Low 3.5-5.1 [facility] Comment on above: Performed By: #### C MP3, HEMDF, PHOS3, LACT3, MG3, ETOH4, QWAL #### [place] [address] [address] [place] Sodium [Moles/Vol] 140 mmol/L Normal 135-145 [facility] Comment on above: Performed By: #### C MP3, HEMDF, PHOS3, LACT3, MG3, ETOH4, QWAL #### [place] [address] [address] [place] Albumin [Mass/Vol] 4.9 g/dL Normal 3.5-5.0 [facility] Comment on above: Performed By: #### C MP3, HEMDF, PHOS3, LACT3, MG3, ETOH4, QWAL #### [place] [address] [address] [place], [place] Comprehensive Metabolic Pane angela 08-24-2020 Albumin [Mass/Vol] 4.9 g/dL 3.5 - 5.0 g/dL [facility] Work Phone: ALP [Catalytic activity/Vol] 106 U/L 38 - 126 U/L [facility] Work Phone: ALT [Catalytic activity/Vol] 28 U/L 0 - 34 U/L [facility] Work Phone: Comment on above: The ALT test is perf ormed by an updated assay method. Please note that the reference intervals have been changed and are now sex specific. Anion gap [Moles/Vol] 15 mmol/L High 3 - 13 mmol/L [facility] Work Phone: AST [Catalytic activity/Vol] 35 U/L 15 - 46 U/L [facility] Work Phone: [phone] Bilirubin Ql (U) 0.9 mg/dL 0.2 - 1.3 mg/dL [facility] Work Phone: Calcium [Mass/Vol] 9.4 mg/dL 8.4 - 10. 4 mg/dL [facility] Work Phone: [phone] Chloride [Moles/Vol] 100 mmol/L 98 - 10 7 mmol/L [facility] Work Phone: [phone] CO2 [Moles/Vol] 25 mmol/L 22 - 30 mmol/L [facility] Work Phone: Creatinine [Mass/Vol] 1 mg/dL 0.52 - 1.25 mg/dL [facility] Work Phone: EGFR IF NonAfrican Maltese 61.7 mL/min >60 [facility] Work Phone: Comment on above: KDIGO guidelines pro vide the following GFR categories: Stage GFR(ml/min/1.73 m2) Terms G1 >=90 Normal or high G2 60-89 Mildly decreased* G3a 45-59 Mildly to moderately decreased G3b 30-44 Moderately to severely decreased G4 15-29 Severely decreased G5 <15 Kidney failure *Relative to young adult level. In the absence of evidence of kidney damage, neither GFR category G1 nor G2 fulfill the criteria for CKD. The CKD-EPI equation is validated in individuals 18 years of age and older. Currently the best equation for estimating glomerular filtration rate (GFR) from serum creatinine in children is the Bedside Vásquez equation. It is less accurate in patients with extremes of muscle mass, restriction of dietary protein, ingestion of creatine, extra-renal metabolism of creatinine, or treatment with medications that affect renal tubular creatinine secretion. GFR/1.73 sq M predicted among blacks MDRD (S/P/Bld) [Vol rate/Area] 71.6 mL/min/{1.73_m2} >60 [facility] Work Phone: Glucose [Mass/Vol] 164 mg/dL High 70 - 100 mg/dL [facility] Work Phone: Potassium [Moles/Vol] 3.4 mmol/L Low 3.5 - 5.1 mmol/L [facility] Work Phone: Protein [Mass/Vol] 7.5 g/dL 6.3 - 8.2 g/dL [facility] Work Phone: Sodium [Moles/Vol] 140 mmol/L 135 - 145 mmol/L [facility] Work Phone: Urea nitrogen [Mass/Vol] 15 mg/dL 7 - 20 mg/dL [facility] Work Phone: Drugs of Abuseon 08-24-2020 Phencyclidine (PCP), Ur Negative Normal [facility] Comment on above: Result Comment: The expected value for all of the drugs listed above is Negative. The following drugs or drug groups have been screened for by Immunoassay at the following thresholds: Amphetamine class (1000 ng/mL), Barbiturates (200 ng/mL), Benzodiazepines (200 ng/mL), Cocaine (300 ng/mL), Methadone (300 ng/mL), Opiates (300 ng/mL), Oxycodone (100 ng/mL), and PCP (25 ng/mL). NOTE: These results are for medical treatment only. Analysis performed using non-forensic procedures. POSITIVE results are NOT confirmed by a more specific alternative method unless requested. If confirmation is needed, request confirmation under separate order. Performed By: #### H LEYDI CORONEL3M, MG3 #### [facility] [address] [place] [address] Methadone, Ur Negative [facility] Comment on above: Performed By: #### H EMOG, BMP3M, MG3 #### [facility] [address] [place] [address] Opiates, Ur Negative Normal [facility] Comment on above: Performed By: #### H EMOG, BMP3M, MG3 #### [facility] [address] [place], [place] Cocaine, Ur Negative Normal [facility] Comment on above: Performed By: #### H EMOG, BMP3M, MG3 #### [facility] [address] [place], [place] Benzodiazepines, Ur Negative Normal [facility] Comment on above: Performed By: #### H EMOG, BMP3M, MG3 #### [facility] [address] [place], [place] Amphetamines, Ur Negative Normal [facility] Comment on above: Performed By: #### H EMOG, BMP3M, MG3 #### [facility] [address] [place], [place] Barbiturates, Ur Positive Normal [facility] Comment on above: Performed By: #### H EMOG, BMP3M, MG3 #### [facility] [address] [place], [place] Oxycodone/Oxymorphine,U r Negative Normal [facility] Comment on above: Performed By: #### H EMOG, BMP3M, MG3 #### [facility] [address] [place], [place] ED Provider Noteon ED Provider Note [facility] EM[facility]GENCY DEPT EMERGENCY DEPARTMENT ENCOUNTER Pt Name: Alfie Hogan Birthdate 1960 Date of evaluation: 08/24/2020 Provider: Janna Medina MD CHIEF COMPLAINT Chief Complaint Patient presents with ? Alcohol Problem pt request detox, large bottle of wine a day sometimes 2 a day last drink was midnight HISTORY OF PRESENT ILLNESS (Location/Symptom, Timing/Onset, Context/Setting, Quality, Duration, Modifying Factors, Severity) Note limiting factors. I wore a N95 mask for the entirety of this encounter. HPI Alfie Hogan is a 59 y.o. female with a history of alcohol abuse, hypertension, hyperlipidemia, sleep apnea, asthma, and COPD who presents to the emergency department for evaluation for alcohol detox. Patient states he usually drinks a glass of wine some days and some days she drinks stronger beverages. She states her last alcoholic drink was at midnight. Patient states she has been having increasing nausea and vomiting at home and concerns that she is going through withdrawal. Patient states she has been previously hospitalized for withdrawal. She however denies any history of alcohol induced seizures or DTs. Patient also denies any fevers, chills, chest pain, shortness of breath, abdominal pain, hematemesis or urinary symptoms. Nursing Notes were reviewed. REVIEW OF SYSTEMS (2+ for level 4; 10+ for level 5) Review of Systems Constitutional: Negative for activity change, diaphoresis and unexpected weight change. HENT: Negative for congestion and rhinorrhea. Eyes: Negative for pain and visual disturbance. Respiratory: Negative for shortness of breath. Cardiovascular: Negative for chest pain and palpitations. Gastrointestinal: Positive for nausea and vomiting. Negative for abdominal pain. Genitourinary: Negative for decreased urine volume and hematuria. Musculoskeletal: Negative for arthralgias and myalgias. Skin: Negative for wound. Neurological: Negative for weakness and light-headedness. PAST MEDICAL HISTORY Past Medical History: Diagnosis Date ? Anxiety ? Bronchiectasis (HCC) ? Depression ? Diastolic heart failure (HCC) ? Hypertension ? Kidney disease ? Kidney failure 01/09/2019 ? Kidney stone ? Oxygen decrease Currently on Home oxygen, uses with exertion ? Pulmonary hypertension (HCC) SURGICAL HISTORY Past Surgical History: Procedure Laterality Date ? APPENDECTOMY 2002 ? BACK SURGERY ? CHOLECYSTECTOMY 2003 ? HERNIA REPAIR 1971 ? HYSTERECTOMY, TOTAL ABDOMINAL 2001 ? JOINT REPLACEMENT Bilateral hips ? TENDON RELEASE Right Right arm ? TONSILLECTOMY 1966 CURRENT MEDICATIONS Previous Medications ALBUTEROL SULFATE HFA 108 (90 BASE) MCG/ACT INHALER Inhale 2 puffs into the lungs every 6 hours as needed for Wheezing or Shortness of Breath BIPAP MACHINE MISC DICYCLOMINE (BENTYL) 10 MG CAPSULE Take 1 capsule by mouth 4 times daily as needed (Nausea) FLUOXETINE (PROZAC) 10 MG CAPSULE Take 1 capsule by mouth daily FLUOXETINE (PROZAC) 20 MG CAPSULE Take 1 capsule by mouth daily FUROSEMIDE (LASIX) 40 MG TABLET Take 2 tablets by mouth daily GABAPENTIN (NEURONTIN) 100 MG CAPSULE Take 2 capsules by mouth 3 times daily for 16 days. MOMETASONE-FORMOTEROL (DULERA) 100-5 MCG/ACT INHALER Inhale 2 puffs into the lungs 2 times daily MULTIPLE VITAMINS-MINERALS (THERAPEUTIC MULTIVITAMIN-MINERALS) TABLET Take 1 tablet by mouth daily PANTOPRAZOLE (PROTONIX) 40 MG TABLET Take 1 tablet by mouth daily POTASSIUM CHLORIDE (KLOR-CON M) 20 MEQ EXTENDED RELEASE TABLET take 3 tablets by mouth twice a day PROCHLORPERAZINE (COMPAZINE) 10 MG TABLET Take 1 tablet by mouth every 6 hours as needed (Nausea) ROSUVASTATIN (CRESTOR) 40 MG TABLET Take 1 tablet by mouth nightly SPACER/AERO-HOLDING CHAMBERS (AEROCHAMBER MV) MISC Use as directed with metered dose inhaler TRAZODONE (DESYREL) 50 MG TABLET Take 1 tablet by mouth nightly ALLERGIES Cat hair extract, Dust mite extract, Pcn [penicillins], and Pollen extract FAMILY HISTORY Family History Problem Relation Age of Onset ? Cancer Mother pancreatic ? Mental Illness Mother ? Cancer Father colon ? High Blood Pressure Father SOCIAL HISTORY Social History Socioeconomic History ? Marital status: Spouse name: Seth ? Number of children: 2 ? Years of education: Not on file ? Highest education level: Not on file Occupational History ? Occupation: on disability Social Needs ? Financial resource strain: Not hard at all ? Food insecurity Worry: Never true Inability: Never true ? Transportation needs Medical: No Non-medical: No Tobacco Use ? Smoking status: Former Smoker Packs/day: 0.50 Years: 25.00 Pack years: 12.50 Types: Cigarettes Quit date: 2005 Years since quittin.2 ? Smokeless tobacco: Never Used Substance and Sexual Activity ? Alcohol use: Yes Frequency: Never Binge frequency: Never Comment: one large bottle and one small bottle each day ? Drug use: No ? Sexual activity: Not on file Lifestyle ? Physical activity Days per week: Not on file Minutes per session: Not on file ? Stress: Not on file Relationships ? Social connections Talks on phone: Not on file Gets together: Not on file Attends judaism service: Not on file Active member of club or organization: Not on file Attends meetings of clubs or organizations: Not on file Relationship status: Not on file ? Intimate partner violence Fear of current or ex partner: Not on file Emotionally abused: Not on file Physically abused: Not on file Forced sexual activity: Not on file Other Topics Concern ? Not on file Social History Narrative ? Not on file SCREENINGS PHYSICAL EXAM (up to 7 for level 4, 8 or more for level 5) ED Triage Vitals [03/23/21 0632] BP Temp Temp src Pulse Resp SpO2 Height Weight (!) 119/98 97.9 ?F (36.6 ?C) -- 105 24 97 % -- -- Physical Exam Vitals signs and nursing note reviewed. Constitutional: General: She is not in acute distress. Appearance: She is not ill-appearing or toxic-appearing. HENT: Head: Normocephalic and atraumatic. Right Ear: External ear normal. Left Ear: External ear normal. Nose: No congestion or rhinorrhea. Mouth/Throat: Mouth: Mucous membranes are moist. Pharynx: No oropharyngeal exudate. Eyes: General: No scleral icterus. Right eye: No discharge. Left eye: No discharge. Conjunctiva/sclera: Conjunctivae normal. Neck: Musculoskeletal: Normal range of motion and neck supple. Cardiovascular: Rate and Rhythm: Normal rate. Pulses: Normal pulses. Heart sounds: No murmur. No gallop. Pulmonary: Effort: Pulmonary effort is normal. No respiratory distress. Breath sounds: Normal breath sounds. No stridor. No wheezing or rhonchi. Abdominal: General: Abdomen is flat. There is no distension. Palpations: Abdomen is soft. Tenderness: There is no abdominal tenderness. Musculoskeletal: General: No swelling, tenderness or deformity. Skin: General: Skin is warm. Coloration: Skin is not jaundiced. Findings: No bruising or rash. Neurological: General: No focal deficit present. Mental Status: She is alert and oriented to person, place, and time. Psychiatric: Mood and Affect: Mood normal. Behavior: Behavior normal. Thought Content: Thought content normal. DIAGNOSTIC RESULTS Interpretation per the Radiologist below, if available at the time of this note: No results found. ED BEDSIDE ULTRASOUND: Performed by ED Physician - none LABS: Labs Reviewed COMPREHENSIVE METABOLIC PANEL - Abnormal; Notable for the following components: Result Value Potassium 3.4 (*) Anion Gap 15 (*) Glucose 164 (*) All other components within normal limits Narrative: Test Performed by [facility] [address] CBC WITH AUTO DIFFERENTIAL - Abnormal; Notable for the following components: Granulocytes % 80.6 (*) Lymphocyte % 13.6 (*) Eosinophils 0.3 (*) All other components within normal limits Narrative: Test Performed by [facility] [address] [place] [address] LACTIC ACID, PLASMA - Abnormal; Notable for the following components: Lactic Acid 3.2 (*) All other components within normal limits Narrative: Test Performed by [facility], [address] [place] [address] ETHANOL - Abnormal; Notable for the following components: Ethanol Lvl 0.071 (*) All other components within normal limits Narrative: [facility] by [facility], [address] [place] [address] COVID-19 HCG, SERUM, QUALITATIVE URINALYSIS URINE DRUG SCREEN All other labs were within normal range or not returned as of this dictation. EMERGENCY DEPARTMENT COURSE and DIFFERENTIAL DIAGNOSIS/MDM: Vitals: Vitals: 08/24/20631 BP: (!) 119/98 Pulse: 105 Resp: 24 Temp: 97.9 ?F (36.6 ?C) SpO2: 97% Medications LORazepam (ATIVAN) injection 4 mg (4 mg Intravenous Given 08/24/20623) ondansetron (ZOFRAN) injection 4 mg (4 mg Intravenous Given 08/24/20624) acetaminophen (TYLENOL) tablet 1,000 mg (1,000 mg Oral Given 08/24/20623) PHENobarbital (LUMINAL) tablet 64.8 mg (64.8 mg Oral Given 08/24/20629) 0.9 % sodium chloride bolus (2,000 mLs Intravenous New Bag 08/24/20648) MDM. ED Course as of Aug 25 755 Tue Aug 24, 2020 0557 EKG with sinus rhythm with a rate of 99. Patient with no ST elevations or depressions concerning for STEMI. Patient with a right bundle iván block [PK] 0755 MCH: 29.8 [PK] ED Course User Index [PK] Janna Medina MD Patient presenting for evaluation for alcohol detox. Patient could not be medically cleared as she had lactic acidosis with a mild anion gap. As a result patient was given IV fluids. Her symptoms were treated with Zofran in the emergency department. Upon arrival to the emergency department the patient CIWA score was in the 30s. As a result she received lorazepam. Patient was also treated with phenobarbital. I discussed with the patient plan for admission medically for alcohol withdrawal with possible detox consultation. Patient is agreeable to plan. Admitted in stable condition. REVAL: Patient CIWA score improved to 7. CRITICAL CARE TIME Total Critical Care time was 15 minutes, excluding separately reportable procedures. There was a high probability of clinically significant/life threatening deterioration in the patient's condition which required my urgent intervention. CONSULTS: None PROCEDURES: Unless otherwise noted below, none Procedures FINAL IMPRESSION 1. Alcohol withdrawal syndrome with complication (HCC) DISPOSITION/PLAN DISPOSITION Admitted 08/24/2020 07:49:33 AM PATIENT REFERRED TO: Bernardino Moran MD [address] [place] [address], [address] [facility] [address] DISCHARGE MEDICATIONS: New Prescriptions No medications on file (Please note: Portions of this note were completed with a voice recognition program. Efforts were made to edit the dictations but occasionally words and phrases are mis-transcribed.) Form [id number] Janna Medina MD (electronically signed) Emergency Medicine Provider Janna Medina MD 08/24/20 0756 Normal [facility] EKG 12 Lead - Chest Painon 0 08-24-2020 [facility] Test Date: 2020-08-24 Pat Name: Alfie Hogan Department: [facility] Room: 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 Specialist: THEO : 1960 Requested By: JANNA MEDINA Order Number: [id number] Demond CL[place]: Maycol Varma Measurements Intervals [place] Rate: 99 P: 62 [place]: 145 QRS: 89 QRSD: 150 T: -45 QT: 382 QTc: 491 Interpretive Statements Sinus rhythm Right bundle branch block NONSPECIFIC REPOL ABNORMALITY, LATERAL LEADS Electronically Signed On 08-24-2020 19:53:32 EDT by Maycol Varma [facility] Work Phone: [facility] Incoming Cardiology Results From [facility] - 08/24/2020 7:54 PM EDT [facility] Test Date: 2020-08-24 Pat Name: Alfie Hogan Department: [facility] Room: 1463 Gender: F Loss Prevention Specialist: THEO : 1960 Requested By: JANNA MEDINA Order Number: [id number] Demond Varma Measurements Intervals [place] Rate: 99 P: 62 [place]: 145 QRS: 89 QRSD: 150 T: -45 QT: 382 QTc: 491 Interpretive Statements Sinus rhythm Right bundle branch block NONSPECIFIC REPOL ABNORMALITY, LATERAL LEADS Electronically Signed On 08-24-2020 19:53:32 EDT by Maycol Varma [employer] [facility] Work Phone: Ethanolon 08-24-2020 Ethanol Lvl 0.071 g/dL High 0.000 - 0.010 g/dL [facility] Work Phone: Comment on above: NOTE: This result is for medical treatment only. Analysis performed using non-forensic procedures. Ethanol Serum/Plasmaon 08-24 Ethanol-Serum/Plasma 0.071 g/dL High 0.000-0.010 [facility] Comment on above: Result Comment: NOTE : This result is for medical treatment only. Analysis performed using non-forensic procedures. Performed By: #### C MP3, HEMDF, PHOS3, LACT3, MG3, ETOH4, QWAL #### [facility] [address] [place] [phone] HCG Qualitative, Serumon hCG Qual Negative m[IU]/mL [employer] Work Phone: Comment on above: Reference Range: NEG ATIVE Effective 08/15/2019, the reference interval for the qualitative test has been updated. This test detects hCG at concentrations of 10 mIU/L or greater in serum. Test Performed by [facility], [address] [place] [id number] [facility] [employer] Work Phone: Hemogram (CBC) w/Auto Diffon 08-24-2020 Absolute Baso # 0.0 10*3/uL 0.0 - 0.2 10*3/uL [facility] Work Phone: Absolute Neut # 6.2 10*3/uL 1.8 - 7.0 10*3/uL [facility] Work Phone: Basophils/100 WBC (Bld) 0.2 % 0.0 - 2.0 % [facility] Work Phone: Eosinophils (Bld) [#/Vol] 0.0 10*3/uL 0.0 - 0.5 10*3/uL [facility] Work Phone: 1) 222 Eosinophils/100 WBC (Bld) 0.3 % Low 1.0 - 6.0 % [facility] Work Phone: 1) 222 Erythrocyte distribution width (RBC) [Ratio] 14.1 % 11.5 - 14.5 % [facility] [employer] [facility] Work Phone: 1) 222 Granulocytes/100 WBC (Bld) 80.6 % High 40.0 - 80.0 % [facility] Work Phone: ) 222 Hematocrit (Bld) [Volume fraction] 41.0 % 35.0 - 47.0 % [employer] [facility] Work Phone: ) 222 Hemoglobin (Bld) [Mass/Vol] 13.9 g/dL 11.7 - 16.0 g/dL [facility] [employer] [facility] Work Phone: ) 222 Interpretation and review of laboratory results Abnormal [employer] Work Phone: ) 222 Lymphocytes (Bld) [#/Vol] 1.0 10*3/uL 1.0 - 4.3 10*3/uL [facility] Work Phone: 1) 222 Lymphocytes/100 WBC (Bld) 13.6 % Low 20.0 - 40.0 % [facility] [employer] [facility] Work Phone: ) 222 MCH (RBC) [Entitic mass] 29.8 pg 26.0 - 34.0 pg [facility] [employer] [facility] Work Phone: ) 222 MCHC (RBC) [Mass/Vol] 33.9 % 32.0 - 36.0 % [facility] Work Phone: ) 222 MCV (RBC) [Entitic vol] 88.0 fL 79.0 - 98.0 fL [facility] Work Phone: 1) 222 Monocytes (Bld) [#/Vol] 0.4 10*3/uL 0.0 - 0.8 10*3/uL [facility] Work Phone: 1) 222 Monocytes/100 WBC (Bld) 5.3 % 2.0 - 10.0 % [employer] Work Phone: 1) 222 Platelet mean volume (Bld) [Entitic vol] 8.1 fL 7.4 - 10.4 fL [facility] Work Phone: Platelets (Bld) [#/Vol] 174 10*3/uL 140 - 440 10*3/uL [facility] Work Phone: RBC (Bld) [#/Vol] 4.65 10*6/uL 3.80 - 5.2 0 10*6/uL [facility] Work Phone: WBC (Bld) [#/Vol] 7.7 10*3/uL 3.6 - 10.7 10*3/uL [facility] Work Phone: Test Performed by [facility], [address] [place] [id number] [facility] Work Phone: Hemogram w/ Autodiffon 08-24 Abs Baso Cnt 0.0 10*3/uL Normal 0.0-0.2 [facility] Comment on above: Performed By: #### C MP3, HEMDF, PHOS3, LACT3, MG3, ETOH4, QWAL #### [address] [phone] Abs Neutrophile Cnt 6.2 10*3/uL Normal 1.8-7.0 [facility] Comment on above: Performed By: #### C MP3, HEMDF, PHOS3, LACT3, MG3, ETOH4, QWAL #### [address] [phone] Basophils/100 WBC (Bld) 0.2 % Normal 0.0-2.0 [facility] Comment on above: Performed By: #### C MP3, HEMDF, PHOS3, LACT3, MG3, ETOH4, QWAL #### [address] [phone] Eosinophils (Bld) [#/Vol] 0.0 10*3/uL Normal 0.0-0.5 [facility] Comment on above: Performed By: #### C MP3, HEMDF, PHOS3, LACT3, MG3, ETOH4, QWAL #### [address] [place], [place] Eosinophils/100 WBC (Bld) 0.3 % Low 1.0-6.0 [facility] Comment on above: Performed By: #### C MP3, HEMDF, PHOS3, LACT3, MG3, ETOH4, QWAL #### [place] [address] [place], [place] Erythrocyte distribution width (RBC) [Ratio] 14.1 % Normal 11.5-14.5 [facility] Comment on above: Performed By: #### C MP3, HEMDF, PHOS3, LACT3, MG3, ETOH4, QWAL #### [place] [address] [place], [place] Granulocytes/100 WBC (Bld) 80.6 % High 40.0-80.0 [facility] Comment on above: Performed By: #### C MP3, HEMDF, PHOS3, LACT3, MG3, ETOH4, QWAL #### [place] [address] [address] [place], [place] Hematocrit (Bld) [Volume fraction] 41.0 % Normal 35.0-47.0 [facility] Comment on above: Performed By: #### C MP3, HEMDF, PHOS3, LACT3, MG3, ETOH4, QWAL #### [place] [address] [place] Hemoglobin (Bld) [Mass/Vol] 13.9 g/dL Normal 11.7-16.0 [facility] Comment on above: Performed By: #### C MP3, HEMDF, PHOS3, LACT3, MG3, ETOH4, QWAL #### [address] Lymphocytes (Bld) [#/Vol] 1.0 10*3/uL Normal 1.0-4.3 [facility] Comment on above: Performed By: #### C MP3, HEMDF, PHOS3, LACT3, MG3, ETOH4, QWAL #### [place] [address] [place], [place] Lymphocytes/100 WBC (Bld) 13.6 % Low 20.0-40.0 [facility] Comment on above: Performed By: #### C MP3, HEMDF, PHOS3, LACT3, MG3, ETOH4, QWAL #### [address] MCH (RBC) [Entitic mass] 29.8 pg Normal 26.0-34.0 [facility] Comment on above: Performed By: #### C MP3, HEMDF, PHOS3, LACT3, MG3, ETOH4, QWAL #### [place] [address] [place] MCHC (RBC) [Mass/Vol] 33.9 % Normal 32.0-36.0 [facility] Comment on above: Performed By: #### C MP3, HEMDF, PHOS3, LACT3, MG3, ETOH4, QWAL #### [address] MCV (RBC) [Entitic vol] 88.0 fL Normal 79.0-98.0 [facility] Comment on above: Performed By: #### C MP3, HEMDF, PHOS3, LACT3, MG3, ETOH4, QWAL #### [address] Monocytes (Bld) [#/Vol] 0.4 10*3/uL Normal 0.0-0.8 [facility] Comment on above: Performed By: #### C MP3, HEMDF, PHOS3, LACT3, MG3, ETOH4, QWAL #### [address] Monocytes/100 WBC (Bld) 5.3 % Normal 2.0-10.0 [facility] Comment on above: Performed By: #### C MP3, HEMDF, PHOS3, LACT3, MG3, ETOH4, QWAL #### [address] Platelet mean volume (Bld) [Entitic vol] 8.1 fL Normal 7.4-10.4 [facility] Comment on above: Performed By: #### C MP3, HEMDF, PHOS3, LACT3, MG3, ETOH4, QWAL #### [place] [address] [place], [place] Platelets (Bld) [#/Vol] 174 10*3/uL Normal 140-440 [facility] Comment on above: Performed By: #### C MP3, HEMDF, PHOS3, LACT3, MG3, ETOH4, QWAL #### [address] RBC (Bld) [#/Vol] 4.65 10*6/uL Normal 3.80-5.20 [facility] Comment on above: Performed By: #### C MP3, HEMDF, PHOS3, LACT3, MG3, ETOH4, QWAL #### [address] WBC (Bld) [#/Vol] 7.7 10*3/uL Normal 3.6-10.7 [facility] Comment on above: Performed By: #### C MP3, HEMDF, PHOS3, LACT3, MG3, ETOH4, QWAL #### [address] Lactic Acidon 08-24-2020 Lactate [Moles/Vol] 1.3 mmol/L Normal 0.7-2.0 [facility] Comment on above: Performed By: #### H EMOG, BMP3M, MG3 #### [address] Lactate [Moles/Vol] 3.2 mmol/L Critically high 0.7-2.0 [facility] Comment on above: Result Comment: Crit ica Panic Lactate has fallen below the [facility] CCL/ED Panic Call Protocol. For [facility] ED patients ONLY the Lactate Levels greater than 2.0 and less than or equal to 4.0 mmol/L fall under the Panic Call Policy. Performed By: #### C MP3, HEMDF, PHOS3, LACT3, MG3, ETOH4, QWAL #### [address] [id number] Lactic Acid, Plasmaon 2020 Lactate [Moles/Vol] 1.3 mmol/L 0.7 - 2. 0 mmol/L [facility] Work Phone: [phone] Test Performed by [facility], [address] [place] [id number] [facility] Work Phone: [phone] Interpretation and review of laboratory results Abnormal [facility] Work Phone: [phone] Lactate [Moles/Vol] 3.2 mmol/L Critically high 0.7 - 2.0 mmol/L [facility] Work Phone: [phone] Comment on above: Critical Panic Lacta te has fallen below the [facility] CCL/ED Panic Call Protocol. For [facility] ED patients ONLY the Lactate Levels greater than 2.0 and less than or equal to 4.0 mmol/L fall under the Panic Call Policy. Test Performed by [facility], [address] [place] [id number] [facility] Work Phone: [phone] Magnesiumon 08-24-2020 Magnesium [Mass/Vol] 1.4 mg/dL Low 1.6-2.3 [facility] Comment on above: Performed By: #### C MP3, HEMDF, PHOS3, LACT3, MG3, ETOH4, QWAL #### [address] [address] Interpretation and review of laboratory results Abnormal [facility] Work Phone: [phone] Magnesium [Mass/Vol] 1.4 mg/dL Low 1.6 - 2 .3 mg/dL [facility] Work Phone: [phone] Otheron 08-24-2020 Test Performed by [facility], [address] [place] [phone] [facility] Work Phone: [phone] Interpretation and review of laboratory results Abnormal [facility] Work Phone: [phone] Test Performed by [facility], [address] [place] [id number] [facility] Work Phone: [phone] Phosphoruson 08-24-2020 Phosphate [Mass/Vol] 2.9 mg/dL Normal 2.5-4.5 [facility] Comment on above: Performed By: #### C MP3, HEMDF, PHOS3, LACT3, MG3, ETOH4, QWAL #### [facility] [address] [place] [address] Phosphate [Mass/Vol] 2.9 mg/dL 2.5 - 4 .5 mg/dL [facility] Work Phone: [phone] 08-24-2020 SARS-CoV-2 SARS-CoV-2 --> Statu s: F Not Detected. Expected Result: Not Detected _ Real-time, RT-PCR performed on the [employer] System by the [facility]. Negative results do not preclude SARS-CoV-2 infection and should not be used as the sole basis for treatment or other patient management decisions. This assay was developed by [employer] and distributed under an Emergency Use Authorization (EUA) granted by the FDA for the qualitative detection of SARS-CoV-2 nucleic acid. Expected Result: Not Detected _ Real-time, RT-PCR performed on the [employer] System by the [facility]. Negative results do not preclude SARS-CoV-2 infection and should not be used as the sole basis for treatment or other patient management decisions. This assay was developed by [employer] and distributed under an Emergency Use Authorization (EUA) granted by the FDA for the qualitative detection of SARS-CoV-2 nucleic acid. Normal [facility] Comment on above: Performed By: #### H EMOG, BMP3M, MG3 #### [facility] [address] [place] [address] Urine Drug Screenon 08-25-19 21 Amphetamines, urine Negative [facility] Work Phone: Barbiturates, Ur Positive [facility] Work Phone: [phone] Benzodiazepine Ur Qual Negative [facility] Work Phone: [phone] Cocaine Metabolites, Ur Negative [facility] Work Phone: [phone] Methadone, Urine Negative [facility] Work Phone: [phone] Opiates, Urine Negative [facility] Work Phone: [phone] Oxycodone Screen, Ur Negative [facility] Work Phone: PCP, Urine Negative [facility] Work Phone: Comment on above: The expected value f or all of the drugs listed above is Negative. The following drugs or drug groups have been screened for by Immunoassay at the following thresholds: Amphetamine class (1000 ng/mL), Barbiturates (200 ng/mL), Benzodiazepines (200 ng/mL), Cocaine (300 ng/mL), Methadone (300 ng/mL), Opiates (300 ng/mL), Oxycodone (100 ng/mL), and PCP (25 ng/mL). NOTE: These results are for medical treatment only. Analysis performed using non-forensic procedures. POSITIVE results are NOT confirmed by a more specific alternative method unless requested. If confirmation is needed, request confirmation under separate order. Test Performed by [facility], [address] [place] [id number] [facility] Work Phone: hCG Qual Pregon 08-24-2020 hCG Qual Preg Negative Normal [facility] Comment on above: Result Comment: Refe rence Range: NEGATIVE Effective 08/15/2019, the reference interval for the qualitative test has been updated. This test detects hCG at concentrations of 10 mIU/L or greater in serum. Performed By: #### C MP3, HEMDF, PHOS3, LACT3, MG3, ETOH4, QWAL #### [address] [address] PROGRESSon 08-19-2020 PROGRESS HNO ID: [id number] Author: Prince Nieves (Ex Phys) Massacci Service: ? Author Type: First Assistant Type: Progress Notes Filed: 08/19/2020 7:39 AM Note Text: -------- Attestation signed by Manjit Gupta at 08/20/2020 11:02 AM I have had direct contact with this patient within the past 30 days. I reviewed the aforegoing individualized treatment plan and recommend it for the next 30 days, based on the patient's progress in the program. Name: Manjit Gupta MD Endoscopy Support Specialist, Pulmonary Rehabilitation Date: August 20, 2020 -------- [facility] Individual Treatment Plan - 30 Day Assessment Patient Name: Alfie Hogan Date: 08/19/2020 Primary Care Physician: Bernardino Moran MD Reason for Consult: RLD Referring Physician: Cesia Howe MD Pulmonary Rehab 30 Day Assessment: Program Location: [place] Program: Pulmonary Phase II Session: 5 Diagnosis: RLD 30 Day Outcome Assessment: OUTCOMES 6 Minute Walk Test: Yes Date: 07/26/20 Distance (ft): 590 Total Rest Time (seconds): 140 Lowest SPO2: 93 Peak Heart Rate BPM: 128 [facility] SOBQ : 50 Rate Your Plate Score Range: 41-57 BMI: 47.3 PHQ-9 Score: 8 CAT Assessment Test : 20 30 Day Oxygen Assessement, Management and Titration in REHAB Assessment: OXYGEN REASSESSMENT, MANAGEMENT and TITRATION in REHAB ASMT Resting SpO2: 96% 4L NC Lowest Exercise SPO2 Assmt: Performed during intake Prescribed Home Oxygen: Yes Rest: 4 Exertion: 5 Sleep: 4 CPAP/BiPAP/NIPPV : Yes [facility] SOBQ : 50 30 Day Oxygen Assessement, Management and Titration in REHAB Intervention: OXYGEN ASSESSMENT, MANAGEMENT AND TITRATION IN REHAB INTERVENTION Initate Titraton: Yes Exercise Oxygen Plan: Initiate supplemental oxygen at prescribed liter flow that is necessary to maintain Spo2 > 90% Target SpO2 Goal: >90% Education Covered Since Start of Rehabilitation: Oxygen;Dyspnea;Pulse Oximetry;Breathing Techniques Oxygen Status: Initiate 30 Day Oxygen Assessment, Management and Titration in REHAB Goals: OXYGEN ASSESSMENT, MANAGEMENT AND TITRATION IN REHAB GOALS Patient to improve [facility] SOBQ Score : Yes Patient understands proper oxygen use: Yes Patient understands benefits of adequate oxygenation: Yes Patient understand benefits of specific breathing techniques: Yes 30 Day Exercise Assessment: EXERCISE REASSESMENT Current Exercise at Rehab: Patient is exercising 2 days per week for 30 minutes per session Treadmill METS : 2.1 Stepper METS : 2.5 RT Weight : 4 lbs Home Exercise: No Current Symptoms: SOB/TOPETE 6 Minute Walk Test: Yes Date: 07/26/20 Distance (ft): 590 Total Rest Time (seconds): 140 Lowest SPO2: 93 Peak Heart Rate BPM: 128 30 Day Exercise Intervention/Prescriptio n: EXERCISE INTERVENTION/PRESCRIPTIO N Exercise Prescription: See detailed outline below Aerobic: Yes Distance: 30 minutes Frequency: 2-3 Per Week Mode: Treadmill;Recumbent Stepper;Weights Intensity: 60-85% age max HR METS: 2-3, can exceed within target heart rate range Target Heart Rate (BPM): 98-138 RPE/RPD: 11-14;3-5 Initial Duration (minutes): 19 minutes Progression: 5 Minutes Every 2-3 Weeks;0.5 Mets Every 1-2 Weeks;Within Target Heart Rate;Within Target METS Level;Wihin Target RPD and RPE;RPE Less Than or Equal to 14;SP02 Greater Than or Equal to 90%;RPD Less Than or Equal to 5 Resistance Training: free weights, currently using 4 lbs WT Intensity: Weight to Have Local Muscle Fatigue in 10-15 Reps With 2-3 Sets Increase in Estimated METS : 0 Minutes per Week of Exercise : 60 Resistance Training: Yes Weight: 4 Repetitions: 10 Sets: 1-2 Duration (mins): 8-10 Exercise Progression/Intensity: RPE 10-14;RPD 3-5;Time increased;Met level increase;SP02 Greater Than or Equal to 90% Target Goal: Improve 6 minute walk distance;Exercise at home Education Covered Since Start of Rehabilitation: Equipment Orientation/Safety;Purse d Lip Breathing;Diaphragmatic Breathing;Rate of Perceived Exertion (RPE);Rate of Perceived Dyspnea (RPD);Warm Up/Cool Down;Pulse Taking;Benefits of Exercise;Exercise Symptoms to Report;Exercise Progression Patient Understands Intervention: Yes 30 Day Exercise Goals: EXERCISE GOALS Distance on 6 Min Walk Test (ft): 690 Duration of Exer Min Per Session: 40 Minutes Per Week of Exercise : >150 Home Exercise Plan: Exercise at least 3-4 days a week for 35-45 minutes per session Other: Increase Endurance;Increase Strength;Decrease SOB with Exercise;Maintain SPO2 with Exercise 30 Day Nutrition Assessment: NUTRITION REASSESSMENT Current Diet: Low Sodium Alcohol Servings: 0 per week Rate Your Plate Score Range: 41-57 30 Day Nutrition Intervention: NUTRITION INTERVENTION Treatment Plan: Diet Log;Nutrition Classes;Pulmonary Rehab Education Covered Since Start of Rehabilitation: Reading Labels;Shop Healthy;Cook Healthy;Heart Healthy Nutrition Goals Met: Yes Goal: Improve Rate Your Plate Score Patient Understands Intervention: Yes 30 Day Nutrition Goals: Goal: Improve Rate Your Plate Score 30 Day Other Core Components/Risk Factors Assessment: OTHER CORE COMPONENTS/RISK FACTORS RE-ASMT Diabetes: No Hyperglycemia: No Current Weight lb.: 283.7 lbs. Waist: Reduce Current BMI: 47.3 Medication Compliance: Yes Exacerbation: Yes Frequent Hospitalizations: Yes Severe Deconditioning: Yes BMI: 47.3 30 Day Other Core Components/Risk Factors Intervention: OTHER CORE COMPONENTS/RISK FACTORS PLAN Medication: Inhaled;Oral Exacerbation: Prevention education Frequent Hospitalizations: Prevention education Severe Deconditioning: Improve conditioning through exercise at [place] and home Weight Management: Dietary Modification;Exercise Hypertension: Continue Medication;Dietary Modification;Exercise;We ight Loss;Stress Management;Keep BP Log Education: See covered education Weight: 283.7 BMI: <40 Patient Understands Intervention: Yes 30 Day Other Core Components Improvement Goals OTHER CORE COMPONENTS IMPROVEMENT GOAL Medication: Inhaled;Oral;Compliance Exacerbation: No exacerbations while enrolled in [place] program Frequent Hospitalizations: No hospitalizations while enrolled in [place] program Severe Deconditioning: Improve conditioning and 6 MWT by 30 meters Weight: Lose BMI: <40 Waist: Reduce Hypertension: BP <130/<80;Monitor BP at Home;Low Sodium Diet Tobacco: Currently at goal BMI: 47.3 30 Psychosocial Assessment: PSYCHOSOCIAL REASSESSMENT Stress: Moderate Family Support: Yes Fall Risk: No Assist Device: No Behavorial Specialist: No Barriers: Ready to Learn BMI: 47.3 CAT Assessment Test : 20 PHQ-9 Score: 8 30 Psychosocial Intervention: PSYCHOSOCIAL INTERVENTION PCP or Mental health Provider Referral for Depression: No intervention needed, patient scored 8 on PHQ-9 Education Covered Since Start of Rehabilitation (Add'l): Stress Management Goal: Improved PHQ9;Attend Stress Management Sessions;Improved SOB Scores on Questionnaires;Improved CAT Assessment Test Score Patient Understands Intervention: Yes 30 Psychosocial Goals: Goal: Improved PHQ9;Attend Stress Management Sessions;Improved SOB Scores on Questionnaires;Improved CAT Assessment Test Score Summary We have agreed upon and established long and short term goals in an effort to improve the management of chronic lung disease. Will forward individual treatment plan to referring physician and medical esthetician for review and recommendations for changes. Lucina Chang August 19, 2020 7:38 AM [facility] PROGRESSon 08-12-2020 PROGRESS HNO ID: [id number] Author: Prince Nieves (Ex Ernesto) Laquita Service: ? Author Type: First Assistant Type: Progress Notes Filed: 08/12/2020 12:06 PM Note Text: [facility] Individualized Treatment Plan - Daily Assessment Patient Name: Alfie Hogan Date: 08/12/2020 Primary Care Physician: Bernardino Moran MD Referring Physician: Cesia Howe MD Supervising Physician: Dr. Davidson Diagnosis: RLD Phase: 2 Session Number: 5 Subjective Data: Patient reports I am feeling fine today, no unusual shortness of breath or chest discomfort. I am ready for exercise. Objective Data: Emergency room visits since your last visit. No Medication changes since last visit. No Today's exercise session was comprised of a warm-up, breathing technique practice, lower and upper body aerobic endurance training, upper and lower body resistance training and lower body stretching/flexibility training as a cool down. Patient tolerated physician prescribed exercise workload. Vitals WNL for patient. This is a hospital based pulmonary rehab program. Patient working towards exercise goals by increasing exercise intensity and duration. Patient working towards education goal by attending education sessions in pulmonary rehabilitation. Will educate on disease and symptom management as needed. The education topic provided to the patient today was other lung disorders. The patient received this education by Individual instruction Written instruction - handouts Verbal instruction Patient has verbalized understanding of education topic and the relation to disease management. Patient's Daily Exercise Log will be scanned into [employer] once it is completed. These can be viewed by going under the scanned documents tab and looking for documents labeled Other respiratory therapy. Daily Exercise Logs contain exercise data such as, but not limited to modality, intensity, duration and frequency of exercise, along with vital signs pre-, during, and post-exercise. Refer to patient's paper medical record for pulse oximetry data, physician prescribed Individualized Treatment Plan, and education sessions covered. Total time of visit 80 minutes. Lucina Chang Phy August 12, 2020 12:05 PM [facility] PROGRESSon 08-10-2020 PROGRESS HNO ID: [id number] Author: Prince Ezequiel Gonzalez PhysToshia Hernandezchao Service: ? Author Type: First Assistant Type: Progress Notes Filed: 08/10/2020 12:06 PM Note Text: [facility] Individualized Treatment Plan - Daily Assessment Patient Name: Alfie Hogan Date: 08/10/2020 Primary Care Physician: Bernardino Moran MD Referring Physician: Cesia Howe MD Supervising Physician: Dr. Davidson Diagnosis: RLD Phase: 2 Session Number: 4 Subjective Data: Patient reports I am feeling fine today, no unusual shortness of breath or chest discomfort. I am ready for exercise. Objective Data: Emergency room visits since your last visit. No Medication changes since last visit. No Today's exercise session was comprised of a warm-up, breathing technique practice, lower and upper body aerobic endurance training, upper and lower body resistance training and lower body stretching/flexibility training as a cool down. Patient tolerated physician prescribed exercise workload. Vitals WNL for patient. This is a hospital based pulmonary rehab program. Patient working towards exercise goals by increasing exercise intensity and duration. Patient working towards education goal by attending education sessions in pulmonary rehabilitation. Will educate on disease and symptom management as needed. The education topic provided to the patient today was airway clearance. The patient received this education by Individual instruction Written instruction - handouts Verbal instruction Patient has verbalized understanding of education topic and the relation to disease management. Patient's Daily Exercise Log will be scanned into [employer] once it is completed. These can be viewed by going under the scanned documents tab and looking for documents labeled Other respiratory therapy. Daily Exercise Logs contain exercise data such as, but not limited to modality, intensity, duration and frequency of exercise, along with vital signs pre-, during, and post-exercise. Refer to patient's paper medical record for pulse oximetry data, physician prescribed Individualized Treatment Plan, and education sessions covered. Total time of visit 80 minutes. Lucina Chang Phy August 10, 2020 12:06 PM [facility] PROGRESSon 08-05-2020 PROGRESS HNO ID: [id number] Author: Prince Roth PhysToshia Coelho Service: ? Author Type: First Assistant Type: Progress Notes Filed: 08/05/2020 12:09 PM Note Text: [facility] DEPARTMENT OF PULMONARY REHABILITATION Individualized Treatment Plan - Daily Assessment Patient Name: Alfie Hogan Date: 08/05/2020 Primary Care Physician: Bernardino Moran MD Referring Physician: Cesia Howe MD Supervising Physician: Dr. Davidson Diagnosis: RLD Phase: 2 Session Number: 3 Subjective Data: Patient reports I am feeling fine today, no unusual shortness of breath or chest discomfort. I am ready for exercise. Objective Data: Emergency room visits since your last visit. No Medication changes since last visit. No Today's exercise session was comprised of a warm-up, breathing technique practice, lower and upper body aerobic endurance training, upper and lower body resistance training and lower body stretching/flexibility training as a cool down. Patient tolerated physician prescribed exercise workload. Vitals WNL for patient. This is a hospital based pulmonary rehab program. Patient working towards exercise goals by increasing exercise duration. Patient working towards education goal by attending education sessions in pulmonary rehabilitation. Will educate on disease and symptom management as needed. The education topic provided to the patient today was preventing infection. The patient received this education by Individual instruction Written instruction - handouts Verbal instruction Patient has verbalized understanding of education topic and the relation to disease management. Patient's Daily Exercise Log will be scanned into [employer] once it is completed. These can be viewed by going under the scanned documents tab and looking for documents labeled Other respiratory therapy. Daily Exercise Logs contain exercise data such as, but not limited to modality, intensity, duration and frequency of exercise, along with vital signs pre-, during, and post-exercise. Refer to patient's paper medical record for pulse oximetry data, physician prescribed Individualized Treatment Plan, and education sessions covered. Total time of visit 80 minutes. Prince Coelho, Lucina Phy August 05, 2020 12:08 PM [facility] PROGRESSon 08-03-2020 PROGRESS HNO ID: [id number] Author: Prince HectorEx Ernesto) Laquita Service: ? Author Type: First Assistant Type: Progress Notes Filed: 08/03/2020 12:16 PM Note Text: [facility] DEPARTMENT OF PULMONARY REHABILITATION Individualized Treatment Plan - Daily Assessment Patient Name: Alfie FRANCON: [id number] Date: 08/03/2020 Primary Care Physician: Bernardino Moran MD Referring Physician: Cesia Howe MD Supervising Physician: Dr. Davidson Diagnosis: RLD Phase: 2 Session Number: 2 Subjective Data: Patient reports I am feeling fine today, no unusual shortness of breath or chest discomfort. I am ready for exercise. Objective Data: Emergency room visits since your last visit. No Medication changes since last visit. No Today's exercise session was comprised of a warm-up, breathing technique practice, lower and upper body aerobic endurance training, upper and lower body resistance training and lower body stretching/flexibility training as a cool down. Patient tolerated physician prescribed exercise workload. Vitals WNL for patient. This is a hospital based pulmonary rehab program. Patient working towards exercise goals by increasing exercise duration. Patient working towards education goal by attending education sessions in pulmonary rehabilitation. Will educate on disease and symptom management as needed. The education topic provided to the patient today was reading food labels. The patient received this education by Individual instruction Written instruction - handouts Verbal instruction Patient has verbalized understanding of education topic and the relation to disease management. Patient's Daily Exercise Log will be scanned into [employer] once it is completed. These can be viewed by going under the scanned documents tab and looking for documents labeled Other respiratory therapy. Daily Exercise Logs contain exercise data such as, but not limited to modality, intensity, duration and frequency of exercise, along with vital signs pre-, during, and post-exercise. Refer to patient's paper medical record for pulse oximetry data, physician prescribed Individualized Treatment Plan, and education sessions covered. Total time of visit 80 minutes. Lucina Chang August 03, 2020 12:15 PM [facility] PROGRESSon 07-27-2020 PROGRESS HNO ID: [id number] Author: Prince Coelho (Ex Phys) Service: ? Author Type: First Assistant Type: Progress Notes Filed: 07/27/2020 12:21 PM Note Text: [facility] Individualized Treatment Plan - Daily Assessment Patient Name: Alfie Hogan Date: 07/27/2020 Primary Care Physician: Bernardino Moran MD Referring Physician: Cesia Howe MD Supervising Physician: Dr. Davidson Diagnosis: RLD Phase: 2 Session Number: 1 Subjective Data: Patient reports I am feeling fine today, no unusual shortness of breath or chest discomfort. I am ready for exercise. Objective Data: Emergency room visits since your last visit. No Medication changes since last visit. No Today's exercise session was comprised of a warm-up, breathing technique practice, lower and upper body aerobic endurance training, upper and lower body resistance training and lower body stretching/flexibility training as a cool down. Patient tolerated physician prescribed exercise workload. Vitals WNL for patient. This is a hospital based pulmonary rehab program. Patient working towards exercise goals by increasing exercise frequency, intensity and duration. Patient working towards education goal by attending education sessions in pulmonary rehabilitation. Will educate on disease and symptom management as needed. The education topic provided to the patient today was energy conservation. The patient received this education by Individual instruction Written instruction - handouts Verbal instruction Patient has verbalized understanding of education topic and the relation to disease management. Patient's Daily Exercise Log will be scanned into [employer] once it is completed. These can be viewed by going under the scanned documents tab and looking for documents labeled Other respiratory therapy. Daily Exercise Logs contain exercise data such as, but not limited to modality, intensity, duration and frequency of exercise, along with vital signs pre-, during, and post-exercise. Refer to patient's paper medical record for pulse oximetry data, physician prescribed Individualized Treatment Plan, and education sessions covered. Total time of visit 80 minutes. Lucina Chang July 27, 2020 12:20 PM [facility] PROGRESSon 07-26-2020 PROGRESS HNO ID: [id number] Author: Galo Jameson (Ex Phys) Service: ? Author Type: First Assistant Type: Progress Notes Filed: 07/26/2020 2:47 PM Note Text: -------- Attestation signed by Manjit Gupta at 07/26/2020 3:56 PM I have reviewed the patient's clinical status and pre-pulmonary rehabilitation outcomes assessment documentation. I approve the individualized treatment plan for pulmonary rehabilitation for the next 30 days. Name: Manjit Gupta MD Endoscopy Support Specialist, Pulmonary Rehabilitation Date: July 26, 2020 -------- [facility] DEPARTMENT OF PULMONARY REHABILITATION Individualized Treatment Plan - Initial Assessment Patient Name: Alfie Hogan Date: 07/26/2020 Primary Care Physician: Bernardino Moran MD Referring Physician: Cesia Howe MD Alfie Hogan is a 59 year old female is presenting for evaluation for pulmonary rehabilitation. Alfie Hogan had 2 hospitalizations in the last year for total of 2 days. Of these hospitalizations 2 were related to pulmonary disease. She has not attended pulmonary rehabilitation in the past. Alfie Hogan was diagnosed with RLD/Pulm HTN in 2019. Relevant past medical history PAST MEDICAL HISTORY Diagnosis Date - Abdominal [...] disorder - Urinary calculus, unspecified Renal stones Relevant past social history PAST SURGICAL HISTORY Procedure Laterality Date - APPENDECTOMY - [facility] - [facility] 08/30/06 - [facility] W/BX 04/11/11 - LAP CHOLECYSTECT/CHOLANGIOGR APHY 08/30/06 - OOPHORECTOMY, PART/TOTAL UNILAT/BILAT 2006 bilateral oophorectomy benign cysts, appendectomy - PAST SURGICAL HISTORY OF 2000?, 2010 ruptured disc L3-L4 repair; fusion - PAST SURGICAL HISTORY OF tendonectomy right elbow - PAST SURGICAL HISTORY OF 2008 left MEAGAN - PAST SURGICAL HISTORY OF 12/30/2014 right MEAGAN - REPAIR UMBILICAL LAURA,5+Y/O,REDUC grade 6 Hernia repair, umbilical >5yr - TONSILLECTOMY HX - VAGINAL HYSTERECTOMY adenomysis Relevant family history FAMILY HISTORY Problem Relation Age of Onset - Cancer Mother pancreatic - Cancer Maternal Grandmother stomach - Colon Cancer Paternal Grandmother - Hypertension Father - Colon Cancer Father 72 - Stroke Paternal Grandfather Social History Social History Tobacco Use - Smoking status: Former Smoker Packs/day: 0.10 Years: 20.00 Pack years: 2.00 Types: Cigarettes Start date: 12/15/2009 - Smokeless tobacco: Never Used - Tobacco comment: quit in 2009 Substance Use Topics - Alcohol use: No Alcohol/week: 2.5 - 5.0 standard drinks Types: 1 - 2 Glasses of Wine (5oz) per week - Drug use: No Influencing Factors: None Motivation to Learn: Eager Interested Cognitive ability: Alert and oriented Relevant medicines, for complete list see medication icon Current Outpatient Medications Medication Sig - prochlorperazine (COMPAZINE) 10 mg tablet Take 1 tablet by mouth every 6 hours as needed for Nausea/Vomiting. - niacin (NIACIN) 500 mg tablet Take 1 tablet by mouth twice daily with meals. - furosemide (LASIX) 80 mg tablet Take 1 tablet by mouth once daily. - potassium chloride (K-TAB) 10 mEq tablet Take 6 tablets by mouth twice daily. - mometasone-formoterol (DULERA) 100-5 mcg/actuation inhaler Inhale 2 Puffs as instructed twice daily. - BIPAP - pantoprazole DR (PROTONIX) 40 mg tablet Take 40 mg by mouth once daily. - atorvastatin (LIPITOR) 40 mg tablet take 1 tablet at bedtime for cholesterol - albuterol HFA (VENTOLIN HFA) 90 mcg/actuation inhaler Inhale 2 Puffs as instructed every 4 hours as needed for Wheezing/Shortness of Breath. - MULTIVITAMIN (DAILY VITAMIN ORAL) Take 1 tablet by mouth once daily. No current facility-administered medications for this visit. Initial Pulmonary Rehab Assessment: Program Location: [place] Program: Pulmonary Phase II Session: Intake Diagnosis: RLD : Primary Reason For Referral: Dyspnea;Improve exercise capacity;Symptom mgmt First Day of Exercise: 07/27/20 Initital Oxygen Assessment, Management and Titration in Rehab Assessment: OXYGEN ASSESSMENT, MANAGEMENT and TITRATION in REHAB ASMT Resting SpO2: 96% 4 lpm NC Lowest Exercise SPO2 Assmt: 6 minute walk;Performed during intake(93% 6 lpm NC) Prescribed Home Oxygen: Yes Rest: 4 Exertion: 5 Sleep: 4 CPAP/BiPAP/NIPPV : Yes UCSD SOBQ : 50 Initital Oxygen Assessment, Management and Titration in Rehab Intervention: OXYGEN ASSESSMENT, MANAGEMENT AND TITRATION IN REHAB INTERVENTION Initate Titraton: Yes Exercise Oxygen Plan: Initiate supplemental oxygen at prescribed liter flow that is necessary to maintain Spo2 > 90% Target SpO2 Goal: >90% Education: Oxygen;Pulse Oximetry;Dyspnea;CPAP/Bi PAP/NIPPV Use;Breathing Techniques Initital Oxygen Assessment, Management and Titration in Rehab Goals: OXYGEN ASSESSMENT, MANAGEMENT AND TITRATION IN REHAB GOALS Patient to improve UCSD SOBQ Score : Yes Patient understands proper oxygen use: Yes Patient understands benefits of adequate oxygenation: Yes Patient understand benefits of specific breathing techniques: Yes Initial Exercise Assessment: EXERCISE ASSESMENT Current Exercise: No Exercise Limitations/Symptoms: Yes Assist Device: No Oxygen: Yes LPM: 6 SPO2 Range With Exercise: >90% Device: NC 6 Minute Walk Test: Yes Date: 07/26/20 Distance (ft): 590 Total Rest Time (seconds): 140 Peak Heart Rate BPM: 128 Initial Exercise Intervention/Prescriptio n: EXERCISE INTERVENTION Frequency: 2 Times Per Week Mode: Treadmill;Recumbent Stepper;Weights Intensity: Within Set Target Heart Rate;Within Target Met Level;RPD of 3-5;RPE of 10-14 METS: 1.5-3.0 RPE/RPD: 3-5;10-14 Initial Duration (minutes): 20 minutes(may take breaks as needed) Progression: 5 Minutes Every 2-3 Weeks;Within Target Heart Rate;Within Target METS Level;RPE Less Than or Equal to 14;RPD Less Than or Equal to 5;SPO2 Greater Than or Equal to 90% Resistance Training: Free Weights Training Start Date: 07/27/20 WT Intensity: Weight to Have Local Muscle Fatigue in 10-15 Reps With 2-3 Sets Education Needed: Equipment Orientation/Safety;Rate of Perceived Exertion (RPE);Rate of Perceived Dyspnea (RPD);Warm Up/Cool Down;Pulse Taking;Benefits of Exercise;Exercise Symptoms to Report;Exercise Progression Initial Exercise Goals: EXERCISE GOALS Distance on 6 Min Walk Test (ft): 690 Duration of Exer Min Per Session: 30 Minutes Per Week of Exercise : >150 Home Exercise Plan: >2-4 days per week of home ex on days not in [place] Other: Increase Endurance;Increase Strength;Decrease SOB with Exercise Initial Nutrition Assessment: NUTRITION ASSESSMENT Current Diet: Other(watching calories, trying to increase fruit and vegetables) Barriers: Other(old habits) Rate Your Plate Score Range: 41-57(49) Moderate-some changes needed: Yes Initial Nutrition Intervention: NUTRITION INTERVENTION Treatment: Diet Log;Nutrition Classes;Pulmonary Rehab Education Needed: Reading Labels;Portion Control;Nutrition for chronic Lung Disease Goal: Improve Rate Your Plate Score Patient Understands Intervention: Yes Initial Nutrition Goals: Goal: Improve Rate Your Plate Score Initial Other Core Components/Risk Factors Assessment: OTHER CORE COMPONENTS/RISK FACTORS ASMT Learning Barriers: None Patient Knows Appropriate Level : Yes Medication: Yes Exacerbation: Yes Frequent Hospitalizations: Yes Severe Deconditioning: Yes Diabetes: No Weight Management: Yes Current Weight lb.: 287.2 lbs BMI: 47.92 Hypertension: No Tobacco Use: Quit More Than One Year Ago Tobacco Type: (none since 2005) Initial Other Core Components/Risk Factors Intervention: OTHER CORE COMPONENTS/RISK FACTORS PLAN Medication: Inhaled;Compliance Exacerbation: prevention edu Frequent Hospitalizations: prevention edu Severe Deconditioning: increase through ex and edu Diabetes: (not diabetic) Weight Management: Dietary Modification;Exercise Hypertension: (no htn) Education Needed: Pulmonary Anatomy AND Physiology;Energy Conservation;Respiratory Medication;Nebulize;Inha lers / Spacers;Steroids;Managin g an Exacerbation;Prevent Infections;Clearing Secretions Tobacco Intervention: Currently at goal Patient Understands Intervention: Yes Initial Other Core Components Improvement Goals: OTHER CORE COMPONENTS IMPROVEMENT GOAL Medication: Inhaled;Compliance Exacerbation: no exacerbation while in [place] Frequent Hospitalizations: no hospitalization while in [place] Severe Deconditioning: increase 6 MWT by at least 30 meters Weight: Lose(to weigh less than 282) BMI: Other(<47.5) Tobacco: Currently at goal BMI: 47.92 Initial Psychosocial Assessment: PSYCHOSOCIAL ASSESSMENT CAT Assessment Test : 20 Barriers: Ready to learn Stress: moderate Family Support: Yes PHQ-9 Score: 8 Initial Psychosocial Intervention: PSYCHOSOCIAL INTERVENTION PCP or Mental Health Provider Referral for Depression: No Education Needed: Yoga for Breathing and Relaxation;Support System;Signs AND Symptoms of Depression;Stress Management;Dyspnea Cycle;Relaxation Techniques;Coping Techniques;Advance Directives Goal: Improved PHQ9;Attend Stress Management Sessions;Improved SOB Scores on Questionnaires;Improved CAT Assessment Test Score Received [facility]?s Pulmonary Disease and Community Resource Guide: Yes Patient Understands Intervention: Yes Initial Psychosocial Goals: Goal: Improved PHQ9;Attend Stress Management Sessions;Improved SOB Scores on Questionnaires;Improved CAT Assessment Test Score SUMMARY Alfie Hogan is an appropriate candidate for pulmonary rehabilitation and reports to be willing and motivated to begin (Action stage of change). We have identified NO barriers to beginning and completing pulmonary rehabilitation and have agreed upon our initial plan. We will discuss and review this plan every 30 days and modify as necessary. Performed face to face with medical esthetician. Will review and seek input from Endoscopy Support Specialist and referring physician. Galo Jameson,Ex Phys 07/26/2020 2:46 PM Normal [facility] Hepatic Functionon Albumin [Mass/Vol] 3.6 g/dL Normal 3.5-5.0 [facility] Comment on above: Performed By: #### H EMOG, BMP3M, MG3 #### [address] ALP [Catalytic activity/Vol] 93 U/L Normal 38-126 [facility] Comment on above: Performed By: #### H EMOG, BMP3M, MG3 #### [address] ALT [Catalytic activity/Vol] 117 U/L High 0-34 [facility] Comment on above: Result Comment: The ALT test is performed by an updated assay method. Please note that the reference intervals have been changed and are now sex specific. Performed By: #### H EMOG, BMP3M, MG3 #### [address] AST [Catalytic activity/Vol] 94 U/L High 15-46 [facility] Comment on above: Performed By: #### H EMOG, BMP3M, MG3 #### [address] [address] Bilirubin [Mass/Vol] 0.5 mg/dL Normal 0.2-1.3 [facility] Comment on above: Performed By: #### H LEYDI CORONEL3Toshia, MG3 #### [facility] [address] [place] [address] Bilirubin.direct [Mass/Vol] 0.0 mg/dL Normal 0.0-0.3 [facility] Comment on above: Performed By: #### H LEYDI CORONEL3M, MG3 #### [facility] [address] [place] [address] Protein [Mass/Vol] 6.0 g/dL Low 6.3-8.2 [facility] Comment on above: Performed By: #### H LEYDI CORONEL3M, MG3 #### [facility] [address] [place] [address] Hepatic Function Panelon Albumin [Mass/Vol] 3.6 g/dL 3.5 - 5 g/dL [place], [place] ALP [Catalytic activity/Vol] 93 U/L 38 - 126 U/L [place], [place] ALT [Catalytic activity/Vol] 117 U/L High 0 - 34 U/L [place], [place] Comment on above: The ALT test is perf ormed by an updated assay method. Please note that the reference intervals have been changed and are now sex specific. AST [Catalytic activity/Vol] 94 U/L High 15 - 46 U/L [place] Bilirubin Ql (U) 0.5 mg/dL 0.2 - 1.3 mg/dL [place] Bilirubin.direct [Mass/Vol] 0.0 mg/dL 0 - 0.3 mg/dL [place] Interpretation and review of laboratory results Abnormal [place], [place] Protein [Mass/Vol] 6.0 g/dL Low 6.3 - 8.2 g/dL [place] Test Performed by [facility], [address] [place] [id number] [place] [address] Phenobarbitalon 07-10-2020 Phenobarbital [Mass/Vol] 23.2 ug/mL Normal 15.0-40.0 [facility] Comment on above: Performed By: #### H EMOG, BMP3M, MG3 #### [address] Phenobarbital Levelon 2020 Phenobarbital [Mass/Vol] 23.2 ug/mL 15 - 40 ug/mL [facility], [place] Test Performed by [facility], [address] [place] [id number] [place] [address], [place] Complete Urinalysison 2020 Appearance (U) Clear Normal Clear [facility] Comment on above: Result Comment: . Performed By: #### C MP3, HEMDF, PHOS3, LACT3, MG3, ETOH4, QWAL #### [address] Bacteria LM.HPF (Urine sed) [#/Area] Few Abnormal Negative [facility] Comment on above: Result Comment: . Performed By: #### C MP3, HEMDF, PHOS3, LACT3, MG3, ETOH4, QWAL #### [address] Bilirubin,Urine Negative Normal Negative [facility] Comment on above: Result Comment: . Performed By: #### C MP3, HEMDF, PHOS3, LACT3, MG3, ETOH4, QWAL #### [address] Cast, Hyaline Negative Normal Negative [facility] Comment on above: Result Comment: . Performed By: #### C MP3, HEMDF, PHOS3, LACT3, MG3, ETOH4, QWAL #### [address] Color (U) Light-Yellow Normal Lt. Yellow [facility] Comment on above: Result Comment: . Performed By: #### C MP3, HEMDF, PHOS3, LACT3, MG3, ETOH4, QWAL #### [place] [address] [place], [place] Glucose Ql (U) Normal Normal Normal (<70) [facility] Comment on above: Result Comment: . Performed By: #### C MP3, HEMDF, PHOS3, LACT3, MG3, ETOH4, QWAL #### [address] [place] [address] [address] [place], [place] Ketone,Urine Negative Normal Negative [facility] Comment on above: Result Comment: . Performed By: #### C MP3, HEMDF, PHOS3, LACT3, MG3, ETOH4, QWAL #### [place] [address] [address] [place], [place] Leukocytes,Urine Negative Normal Negative [facility] Comment on above: Result Comment: . Performed By: #### C MP3, HEMDF, PHOS3, LACT3, MG3, ETOH4, QWAL #### [place] [address] [address] [place], [place] Nitrites,Urine Negative Normal Negative [facility] Comment on above: Result Comment: . Performed By: #### C MP3, HEMDF, PHOS3, LACT3, MG3, ETOH4, QWAL #### [place] [address] [address] [place], [place] Occult Blood,Urine 0.1 mg/dL Abnormal Negative [facility] Comment on above: Result Comment: . Performed By: #### C MP3, HEMDF, PHOS3, LACT3, MG3, ETOH4, QWAL #### [place] [address] [address] [place], [place] pH (U) 6.0 Normal 5.0-8.0 [facility] Comment on above: Result Comment: . Performed By: #### C MP3, HEMDF, PHOS3, LACT3, MG3, ETOH4, QWAL #### [place] [address] [address] [place], [place] Protein (U) [Mass/Vol] 100 mg/dL Abnormal Negative [facility] Comment on above: Result Comment: . Performed By: #### C MP3, HEMDF, PHOS3, LACT3, MG3, ETOH4, QWAL #### [place] [address] [address] [place], [place] RBC LM.HPF (Urine sed) [#/Area] 0 - 2 Normal 0-2 [facility] Comment on above: Result Comment: . Performed By: #### C MP3, HEMDF, PHOS3, LACT3, MG3, ETOH4, QWAL #### [facility] [address] [place], [place] Specific [place],Urine 1.010 Normal 1.005 - 1.030 [facility] Comment on above: Result Comment: . Performed By: #### C MP3, HEMDF, PHOS3, LACT3, MG3, ETOH4, QWAL #### [facility] [address] [place], [place] Squamous Epithelial 3 - 5 Normal 3-5 [facility] Comment on above: Result Comment: . Performed By: #### C MP3, HEMDF, PHOS3, LACT3, MG3, ETOH4, QWAL #### [place] [address] [address] [place], [place] Urobilinogen,Urine Normal Normal Normal (0-1) [facility] Comment on above: Result Comment: . Performed By: #### C MP3, HEMDF, PHOS3, LACT3, MG3, ETOH4, QWAL #### [facility] [address] [place], [place] WBC LM.HPF (Urine sed) [#/Area] 3 - 5 Normal 0-5 [facility] Comment on above: Result Comment: . Performed By: #### C MP3, HEMDF, PHOS3, LACT3, MG3, ETOH4, QWAL #### [facility] [address] [place], [place] COVID-19on 07-06-2020 SARS-CoV-2 Not Detected. Not Detected [facility], [place] Comment on above: Not Detected. Expected Result: Not Detected _ Real-time, RT-PCR performed on the [employer] System by the [facility]. Negative results do not preclude SARS-CoV-2 infection and should not be used as the sole basis for treatment or other patient management decisions. This assay was developed by [employer] and distributed under an Emergency Use Authorization (EUA) granted by the FDA for the qualitative detection of SARS-CoV-2 nucleic acid. Test Performed by [facility], [address] [place] [id number] Comp Metabolic Panelon 07-06 ALT [Catalytic activity/Vol] 195 U/L High 0-34 [facility] Comment on above: Result Comment: The ALT test is performed by an updated assay method. Please note that the reference intervals have been changed and are now sex specific. Performed By: #### H EMOShira BMP3M, MG3 #### [facility] [address] [place], [place] Calcium [Mass/Vol] 9.4 mg/dL Normal 8.4-10.4 [facility] Comment on above: Performed By: #### H EMOShira BMP3M, MG3 #### [address] Glucose [Mass/Vol] 133 mg/dL High 70-100 [facility] Comment on above: Performed By: #### H EMOG BMP3M, MG3 #### [place] [address] [place] Urea nitrogen [Mass/Vol] 15 mg/dL Normal 7-20 [facility] Comment on above: Performed By: #### H EMOShira BMP3M, MG3 #### [place] [address] [place] ALP [Catalytic activity/Vol] 135 U/L High 38-126 [facility] Comment on above: Performed By: #### H EMOShira BMP3M, MG3 #### [facility] [address] [place], [place] Anion gap [Moles/Vol] 13 Normal [facility] Comment on above: Performed By: #### H EMOG, BMP3M, MG3 #### [facility] [address] [place], [place] AST [Catalytic activity/Vol] 375 U/L High 15-46 [facility] Comment on above: Performed By: #### H EMOG BMP3M, MG3 #### [place] [address] [place], [place] Bilirubin [Mass/Vol] 1.3 mg/dL Normal 0.2-1.3 [facility] Comment on above: Performed By: #### H BERNA BMP3M, MG3 #### [address] CO2 [Moles/Vol] 31 mmol/L High 22-30 [facility] Comment on above: Performed By: #### H THOMG, BMP3M, MG3 #### [address] Creatinine [Mass/Vol] 1.04 mg/dL Normal 0.52-1.25 [facility] Comment on above: Performed By: #### H EMOG, BMP3M, MG3 #### [address] GFR/1.73 sq M predicted among blacks MDRD (S/P/Bld) [Vol rate/Area] 68.3 mL/min/{1.73_m2} Normal >60 [facility] Comment on above: Performed By: #### H BERNA, BMP3M, MG3 #### [address] GFR/1.73 sq M predicted among non-blacks MDRD (S/P/Bld) [Vol rate/Area] 58.9 mL/min/{1.73_m2} Abnormal >60 [facility] Comment on above: Result Comment: KDIG O guidelines provide the following GFR categories: Stage GFR(ml/min/1.73 m2) Terms G1 >=90 Normal or high G2 60-89 Mildly decreased* G3a 45-59 Mildly to moderately decreased G3b 30-44 Moderately to severely decreased G4 15-29 Severely decreased G5 <15 Kidney failure *Relative to young adult level. In the absence of evidence of kidney damage, neither GFR category G1 nor G2 fulfill the criteria for CKD. The CKD-EPI equation is validated in individuals 18 years of age and older. Currently the best equation for estimating glomerular filtration rate (GFR) from serum creatinine in children is the Bedside Vásquez equation. It is less accurate in patients with extremes of muscle mass, restriction of dietary protein, ingestion of creatine, extra-renal metabolism of creatinine, or treatment with medications that affect renal tubular creatinine secretion. Performed By: #### H CHERIE CORONEL MG3 #### [place] [address] [place] [address] Protein [Mass/Vol] 7.5 g/dL Normal 6.3-8.2 [facility] Comment on above: Performed By: #### H CHERIE CORONEL MG3 #### [place] [address] [address] [place], [place] Chloride [Moles/Vol] 97 mmol/L Low 98-107 [facility] Comment on above: Performed By: #### H CHERIE CORONEL MG3 #### [place] [address] [address] [place], [place] Potassium [Moles/Vol] 3.6 mmol/L Normal 3.5-5.1 [facility] Comment on above: Performed By: #### H CHERIE CORONEL MG3 #### [address] [place] [address] [place] [address] Sodium [Moles/Vol] 140 mmol/L Normal 135-145 [facility] Comment on above: Performed By: #### H CHERIE CORONEL MG3 #### [address] [place] [address] [place] [address] Albumin [Mass/Vol] 5.0 g/dL Normal 3.5-5.0 [facility] Comment on above: Performed By: #### H CHERIE CORONEL MG3 #### [address] [place] [address] [place] [address] Comprehensive Metabolic Pane angela 07-06-2020 Albumin [Mass/Vol] 5.0 g/dL 3.5 - 5 g/dL [place], [place] ALP [Catalytic activity/Vol] 135 U/L High 38 - 126 U/L [place], [place] ALT [Catalytic activity/Vol] 195 U/L High 0 - 34 U/L [place] Comment on above: The ALT test is perf ormed by an updated assay method. Please note that the reference intervals have been changed and are now sex specific. Anion gap [Moles/Vol] 13 mmol/L [place], [place] AST [Catalytic activity/Vol] 375 U/L High 15 - 46 U/L [place] Bilirubin Ql (U) 1.3 mg/dL 0.2 - 1.3 mg/dL [place] Calcium [Mass/Vol] 9.4 mg/dL 8.4 - 10. 4 mg/dL [place] Chloride [Moles/Vol] 97 mmol/L Low 98 - 10 7 mmol/L [place] CO2 [Moles/Vol] 31 mmol/L High 22 - 30 mmol/L [place] Creatinine [Mass/Vol] 1.04 mg/dL 0.52 - 1.25 mg/dL [place] EGFR IF NonAfrican Maltese 58.9 mL/min Abnormal >60 [place] Comment on above: KDIGO guidelines pro vide the following GFR categories: Stage GFR(ml/min/1.73 m2) Terms G1 >=90 Normal or high G2 60-89 Mildly decreased* G3a 45-59 Mildly to moderately decreased G3b 30-44 Moderately to severely decreased G4 15-29 Severely decreased G5 <15 Kidney failure *Relative to young adult level. In the absence of evidence of kidney damage, neither GFR category G1 nor G2 fulfill the criteria for CKD. The CKD-EPI equation is validated in individuals 18 years of age and older. Currently the best equation for estimating glomerular filtration rate (GFR) from serum creatinine in children is the Bedside Vásquez equation. It is less accurate in patients with extremes of muscle mass, restriction of dietary protein, ingestion of creatine, extra-renal metabolism of creatinine, or treatment with medications that affect renal tubular creatinine secretion. GFR/1.73 sq M predicted among blacks MDRD (S/P/Bld) [Vol rate/Area] 68.3 mL/min/{1.73_m2} >60 [place] Glucose [Mass/Vol] 133 mg/dL High 70 - 100 mg/dL [place] Interpretation and review of laboratory results Abnormal [place] Potassium [Moles/Vol] 3.6 mmol/L 3.5 - 5.1 mmol/L [place] Protein [Mass/Vol] 7.5 g/dL 6.3 - 8.2 g/dL [place] Sodium [Moles/Vol] 140 mmol/L 135 - 145 mmol/L [place] Urea nitrogen [Mass/Vol] 15 mg/dL 7 - 20 mg/dL [place] Test Performed by [facility], [address], [place] [address] [place], [place] Drugs of Abuseon 07-06-2020 Phencyclidine (PCP), Ur Negative Normal [facility] Comment on above: Result Comment: The expected value for all of the drugs listed above is Negative. The following drugs or drug groups have been screened for by Immunoassay at the following thresholds: Amphetamine class (1000 ng/mL), Barbiturates (200 ng/mL), Benzodiazepines (200 ng/mL), Cocaine (300 ng/mL), Methadone (300 ng/mL), Opiates (300 ng/mL), Oxycodone (100 ng/mL), and PCP (25 ng/mL). NOTE: These results are for medical treatment only. Analysis performed using non-forensic procedures. POSITIVE results are NOT confirmed by a more specific alternative method unless requested. If confirmation is needed, request confirmation under separate order. Performed By: #### H BERNA BMP3M, MG3 #### [place] [address] [address] [facility], [place] Methadone, Ur Negative Normal [facility] Comment on above: Performed By: #### H EMOG BMP3M, MG3 #### [place] [address] [address] [place], [place] Opiates, Ur Negative Normal [facility] Comment on above: Performed By: #### H EMOG BMP3M, MG3 #### [place] [address] [address] [facility], [place] Cocaine, Ur Negative Normal [facility] Comment on above: Performed By: #### H EMOG BMP3M, MG3 #### [place] [address] [address] [place] [id number] Amphetamines, Ur Negative Normal [facility] Comment on above: Performed By: #### H EMOG, BMP3M, MG3 #### [facility] [address] [place] [address] Barbiturates, Ur Negative Normal [facility] Comment on above: Performed By: #### H EMOG, BMP3M, MG3 #### [facility] [address] [place] [address] Benzodiazepines, Ur Negative Normal [facility] Comment on above: Performed By: #### H EMOG, BMP3M, MG3 #### [facility] [address] [place] [address] Oxycodone/Oxymorphine,U r Negative Normal [facility] Comment on above: Performed By: #### H EMOG, BMP3M, MG3 #### [facility] [address] [place] [address] ED Provider Noteon ED Provider Note Emergency Department Encounter [facility] EMERGENCY DEPT Patient: Alfie Hogan : 1960 Date of Evaluation: 07/06/2020 ED Provider: MARKIE Gonzales As the [id number], I performed a medical screening history and physical exam on this patient. HISTORY OF PRESENT ILLNESS In brief, Alfie Hogan is a 59 y.o. female that presents for evaluation for alcohol detox. Patient states she drinks a bottle and a half of wine per day for the last drink being around 1 p.m. She denies a history of known seizures or delirium tremens. Denying auditory or visual hallucinations. Denies any illicit drug use at this time. She has never been to detox before. She has no other complaints.. PHYSICAL EXAM ED Triage Vitals [07/06/20 1550] Enc Vitals Group BP (!) 161/118 Pulse 118 Resp 20 Temp 99.5 ?F (37.5 ?C) Temp Source Oral SpO2 97 % Weight 270 lb (122.5 kg) Height 5' 8 (1.727 m) Head Circumference Peak Flow Pain Score Pain Loc Pain Edu? Excl. in GC? On brief exam, tearful but nontoxic appearing 51-year-old female in no acute distress. She is tachycardic. Regular rhythm. No lower extremity edema. We will initiate diagnostics/treatments as indicated and place in main ED as soon as available. MARKIE Gonzales [employer] MARKIE Gonzales 07/06/20 1557 [facility] Patient: Alfie Hogan : 1960 Date of Evaluation: 07/06/2020 ED [facility]IL[facility] Provider: Michelet Long PA-C ChiefComplaint Chief Complaint Patient presents with ? Alcohol Problem pt presents requesting alcohol detox, states she drinks about 1.5 bottles of wine/day, last drink around 2pm [facility] OWING[facility] Alfie Hogan is a 59 y.o. female Rodrigo with alcohol dependence, states that she drinks 2 large bottles of wine daily, now for years, states that her family is falling apart due to her drinking problem so she finally wants to get a hold of this issue. Denies previous stents in detox, denies history of alcohol seizures. She states she has never been in withdrawal before. Admits to some anxiety, mild depression due to her situation. Denies suicidal ideations. Her last drink was around 2 PM. She denies tremulousness, dizziness, hallucinations. She denies recent hospitalization or procedures. Denies any other substance use. ROS: Review of Systems At least 10 systems reviewed and otherwise acutely negative except as in the OHKAY OWINGEH. Past History Past Medical History: Diagnosis Date ? Anxiety ? Bronchiectasis (HCC) ? Depression ? Diastolic heart failure (HCC) ? Hypertension ? Kidney disease ? Kidney failure 01/09/2019 ? Kidney stone ? Oxygen decrease Currently on Home oxygen, uses with exertion ? Pulmonary hypertension (HCC) Past Surgical History: Procedure Laterality Date ? APPENDECTOMY 2002 ? BACK SURGERY ? CHOLECYSTECTOMY 2003 ? HERNIA REPAIR 1971 ? HYSTERECTOMY, TOTAL ABDOMINAL 2001 ? JOINT REPLACEMENT Bilateral hips ? TENDON RELEASE Right Right arm ? TONSILLECTOMY 1965 Social History Socioeconomic History ? Marital status: Spouse name: None ? Number of children: None ? Years of education: None ? Highest education level: None Occupational History ? None Social Needs ? Financial resource strain: Not hard at all ? Food insecurity Worry: Never true Inability: Never true ? Transportation needs Medical: No Non-medical: No Tobacco Use ? Smoking status: Former Smoker Packs/day: 0.50 Years: 25.00 Pack years: 12.50 Types: Cigarettes Quit date: 2005 Years since quittin.0 ? Smokeless tobacco: Never Used Substance and Sexual Activity ? Alcohol use: Yes Frequency: Never Binge frequency: Never Comment: 1.5 bottles wine/day ? Drug use: No ? Sexual activity: None Lifestyle ? Physical activity Days per week: None Minutes per session: None ? Stress: None Relationships ? Social connections Talks on phone: None Gets together: None Attends judaism service: None Active member of club or organization: None Attends meetings of clubs or organizations: None Relationship status: None ? Intimate partner violence Fear of current or ex partner: None Emotionally abused: None Physically abused: None Forced sexual activity: None Other Topics Concern ? None Social History Narrative ? None Medications/Allergies Previous Medications ALBUTEROL SULFATE HFA 108 (90 BASE) MCG/ACT INHALER Inhale 2 puffs into the lungs ALPRAZOLAM (XANAX) 1 MG TABLET Take 1 tablet by mouth 3 times daily as needed for Anxiety for up to 30 days. BIPAP MACHINE MISC DICYCLOMINE (BENTYL) 10 MG CAPSULE Take 1 capsule by mouth 4 times daily as needed (Nausea) FLUOXETINE (PROZAC) 20 MG TABLET Take 2 tablets by mouth daily FUROSEMIDE (LASIX) 40 MG TABLET Take 2 tablets by mouth daily MOMETASONE-FORMOTEROL (DULERA) 100-5 MCG/ACT INHALER Inhale 2 puffs into the lungs 2 times daily MULTIPLE VITAMINS-MINERALS (THERAPEUTIC MULTIVITAMIN-MINERALS) TABLET Take 1 tablet by mouth daily NIACIN 250 MG EXTENDED RELEASE CAPSULE Take 250 mg by mouth 2 times daily PANTOPRAZOLE (PROTONIX) 40 MG TABLET Take 1 tablet by mouth daily POTASSIUM CHLORIDE (KLOR-CON M) 20 MEQ EXTENDED RELEASE TABLET take 3 tablets by mouth twice a day PROCHLORPERAZINE (COMPAZINE) 10 MG TABLET Take 1 tablet by mouth every 6 hours as needed (Nausea) ROSUVASTATIN (CRESTOR) 40 MG TABLET Take 1 tablet by mouth nightly SPACER/AERO-HOLDING CHAMBERS (AEROCHAMBER MV) MISC Use as directed with metered dose inhaler TEMAZEPAM (RESTORIL) 30 MG CAPSULE Take 1 capsule by mouth nightly as needed for Sleep for up to 30 days. Allergies Allergen Reactions ? Cat Hair Extract Other (See Comments) ? Dust Mite Extract ? Pcn [Penicillins] Hives ? Pollen Extract And ragweed Physical Exam ED Triage Vitals [07/06/20 1550] BP Temp Temp Source Pulse Resp SpO2 Height Weight (!) 161/118 99.5 ?F (37.5 ?C) Oral 118 20 97 % 5' 8 (1.727 m) 270 lb (122.5 kg) Physical Exam Vitals signs and nursing note reviewed. Constitutional: General: She is not in acute distress. Appearance: She is well-developed. She is not toxic-appearing or diaphoretic. Comments: Middle-aged female, anxious, cooperative otherwise. Alert and oriented x4, mentating appropriately. HENT: Head: Normocephalic and atraumatic. Right Ear: Hearing and external ear normal. Left Ear: Hearing and external ear normal. Nose: Nose normal. Eyes: General: No scleral icterus. Right eye: No discharge. Left eye: No discharge. Conjunctiva/sclera: Conjunctivae normal. Neck: Musculoskeletal: Full passive range of motion without pain, normal range of motion and neck supple. Normal range of motion. No neck rigidity. Cardiovascular: Rate and Rhythm: Normal rate and regular rhythm. Heart sounds: Normal heart sounds, S1 normal and S2 normal. Heart sounds not distant. No murmur. No friction rub. No gallop. No S3 or S4 sounds. Pulmonary: Effort: Pulmonary effort is normal. No accessory muscle usage or respiratory distress. Breath sounds: Normal breath sounds. No decreased breath sounds, wheezing, rhonchi or rales. Musculoskeletal: Normal range of motion. Skin: General: Skin is warm. Neurological: Mental Status: She is alert and oriented to person, place, and time. GCS: GCS eye subscore is 4. GCS verbal subscore is 5. GCS motor subscore is 6. Gait: Gait normal. Psychiatric: Mood and Affect: Mood is anxious. Speech: Speech normal. Behavior: Behavior normal. Behavior is cooperative. Diagnostics Labs: Labs Reviewed COMPREHENSIVE METABOLIC PANEL - Abnormal; Notable for the following components: Result Value Chloride 97 (*) CO2 31 (*) Glucose 133 (*) EGFR IF NonAfrican Maltese 58.9 (*) Alkaline Phosphatase 135 (*) ALT 195 (*) AST 375 (*) All other components within normal limits Narrative: Test Performed by [facility], [address] [place] [id number] CBC WITH AUTO DIFFERENTIAL - Abnormal; Notable for the following components: Eosinophils 0.1 (*) All other components within normal limits Narrative: Test Performed by [facility], [address] [place] [id number] ETHANOL - Abnormal; Notable for the following components: Ethanol Lvl 0.348 (*) All other components within normal limits Narrative: Test Performed by [facility], [address] [place] [id number] URINE DRUG SCREEN Narrative: Test Performed by [facility], [address] [place] [id number] COVID-19 Radiographs: No results found. Procedures: N/A EKG: All EKG's are interpreted by the Emergency Department Physician in the absence of a compensation and benefits analyst. Please see their note for interpretation of EKG. ED Course and MDM ED care was supervised by Dr. Warren who independently examined and evaluated the patient. Please see their attestation note for further details. For this encounter I wore N95 mask, surgical mask, safety goggles, gloves; patient also wore a mask provided by staff. In brief, Alfie Hogan is a 59 y.o. female who presented to the emergency department with alcohol dependence seeking inpatient detox services. Patient with no recent contributory visits on record, no recent ED visits. Screening labs obtained and reviewed, ethanol significantly elevated at 0.348. CMP shows ALT 195, ALP 135, AST 375, slightly increased from prior. Drug screen negative. COVID 19 negative. Patient given dose of Ativan to combat anxiety and withdrawal in the ED which she responded well to. Discussed case with Dr. Johns who is agreeable for plan for detox admission, patient admitted to [facility] in stable condition. Final Impression 1. Alcohol dependence with uncomplicated withdrawal (HCC) DISPOSITION Admitted 07/06/2020 08:24:12 PM (Please note that portions of this note may have been completed with a voice recognition program.Efforts were made to edit the dictations but occasionally words are mis-transcribed.) Michelet Long PA-C [employer] Michelet Long PA-C 07/06/20 2120 Normal [facility] Ethanolon 07-06-2020 Ethanol Lvl 0.348 g/dL Critically high 0 - 0.01 g/dL [facility], [place] Comment on above: NOTE: This result is for medical treatment only. Analysis performed using non-forensic procedures. Interpretation and review of laboratory results Abnormal [place], [place] Test Performed by [facility], [address] [place] [phone] [place], [place] Ethanol Serum/Plasmaon 07-06 Ethanol-Serum/Plasma 0.348 g/dL Critically high 0.000-0.01 0 [facility] Comment on above: Result Comment: NOTE : This result is for medical treatment only. Analysis performed using non-forensic procedures. Performed By: #### H EMOG, BMP3M, MG3 #### [address] [address] Hemogram (CBC) w/Auto Diffon 07-06-2020 Absolute Baso # 0.1 10*3/uL 0 - 0.2 10*3/uL [place] Absolute Neut # 4.5 10*3/uL 1.8 - 7 10*3/uL [place] Basophils/100 WBC (Bld) 0.9 % 0 - 2 % [place] Eosinophils (Bld) [#/Vol] 0.0 10*3/uL 0 - 0.5 10*3/uL [place] Eosinophils/100 WBC (Bld) 0.1 % Low 1 - 6 % [place] Erythrocyte distribution width (RBC) [Ratio] 14.5 % 11.5 - 14.5 % [place] Granulocytes/100 WBC (Bld) 68.4 % 40 - 80 % [place] Hematocrit (Bld) [Volume fraction] 40.3 % 35 - 47 % [place] Hemoglobin (Bld) [Mass/Vol] 13.4 g/dL 11.7 - 16 g/dL [place] Interpretation and review of laboratory results Abnormal [place] Lymphocytes (Bld) [#/Vol] 1.6 10*3/uL 1 - 4.3 10*3/uL [place] Lymphocytes/100 WBC (Bld) 24.4 % 20 - 40 % [place] MCH (RBC) [Entitic mass] 31.7 pg 26 - 34 pg [place] MCHC (RBC) [Mass/Vol] 33.3 % 32 - 36 % [place], [place] MCV (RBC) [Entitic vol] 95.2 fL 79 - 98 fL [place], [place] Monocytes (Bld) [#/Vol] 0.4 10*3/uL 0 - 0.8 10*3/uL [place] Monocytes/100 WBC (Bld) 6.2 % 2 - 10 % [place] Platelet mean volume (Bld) [Entitic vol] 7.9 fL 7.4 - 10.4 fL [place] Platelets (Bld) [#/Vol] 248 10*3/uL 140 - 440 10*3/uL [place] RBC (Bld) [#/Vol] 4.24 10*6/uL 3.8 - 5.2 10*6/uL [place] WBC (Bld) [#/Vol] 6.6 10*3/uL 3.6 - 10.7 10*3/uL [place] Test Performed by [facility], [address] [place] [id number] [place] [address] Hemogram w/ Autodiffon 07-06 Abs Baso Cnt 0.1 10*3/uL Normal 0.0-0.2 [facility] Comment on above: Performed By: #### H LEYDI CORONEL3M, MG3 #### [address] [address] Abs Neutrophile Cnt 4.5 10*3/uL Normal 1.8-7.0 [facility] Comment on above: Performed By: #### H LEYDI CORONEL3M, MG3 #### [address] [address] Basophils/100 WBC (Bld) 0.9 % Normal 0.0-2.0 [facility] Comment on above: Performed By: #### H LEYDI CORONEL3M, MG3 #### [address] Eosinophils (Bld) [#/Vol] 0.0 10*3/uL Normal 0.0-0.5 [facility] Comment on above: Performed By: #### H EMOShira BMP3M, MG3 #### [facility] [address] [place], [place] Eosinophils/100 WBC (Bld) 0.1 % Low 1.0-6.0 [facility] Comment on above: Performed By: #### H EMOShira, BMP3M, MG3 #### [place] [address] [address] [place], [place] Erythrocyte distribution width (RBC) [Ratio] 14.5 % Normal 11.5-14.5 [facility] Comment on above: Performed By: #### H EMOShira, BMP3M, MG3 #### [place] [address] [address] [place], [place] Granulocytes/100 WBC (Bld) 68.4 % Normal 40.0-80.0 [facility] Comment on above: Performed By: #### H EMOShira, BMP3M, MG3 #### [place] [address] [address] [place], [place] Hematocrit (Bld) [Volume fraction] 40.3 % Normal 35.0-47.0 [facility] Comment on above: Performed By: #### H EMOG, BMP3M, MG3 #### [place] [address] [address] [place], [place] Hemoglobin (Bld) [Mass/Vol] 13.4 g/dL Normal 11.7-16.0 [facility] Comment on above: Performed By: #### H EMOG, BMP3M, MG3 #### [place] [address] [place] Lymphocytes (Bld) [#/Vol] 1.6 10*3/uL Normal 1.0-4.3 [facility] Comment on above: Performed By: #### H EMOG, BMP3M, MG3 #### [place] [address] [place] Lymphocytes/100 WBC (Bld) 24.4 % Normal 20.0-40.0 [facility] Comment on above: Performed By: #### H EMOShira, BMP3M, MG3 #### [place] [address] [address] [place], [place] MCH (RBC) [Entitic mass] 31.7 pg Normal 26.0-34.0 [facility] Comment on above: Performed By: #### H EMOG, BMP3M, MG3 #### [place] [address] [place] MCHC (RBC) [Mass/Vol] 33.3 % Normal 32.0-36.0 [facility] Comment on above: Performed By: #### H EMOShira, BMP3M, MG3 #### [address] MCV (RBC) [Entitic vol] 95.2 fL Normal 79.0-98.0 [facility] Comment on above: Performed By: #### H EMOG, BMP3M, MG3 #### [place] [address] [address] [place], [place] Monocytes (Bld) [#/Vol] 0.4 10*3/uL Normal 0.0-0.8 [facility] Comment on above: Performed By: #### H EMOG, BMP3M, MG3 #### [address] Monocytes/100 WBC (Bld) 6.2 % Normal 2.0-10.0 [facility] Comment on above: Performed By: #### H EMOG, BMP3M, MG3 #### [place] [address] [address] [place], [place] Platelet mean volume (Bld) [Entitic vol] 7.9 fL Normal 7.4-10.4 [facility] Comment on above: Performed By: #### H EMOG, BMP3M, MG3 #### [address] Platelets (Bld) [#/Vol] 248 10*3/uL Normal 140-440 [facility] Comment on above: Performed By: #### H EMOG, BMP3M, MG3 #### [facility] [address] [place], [place] RBC (Bld) [#/Vol] 4.24 10*6/uL Normal 3.80-5.20 [facility] Comment on above: Performed By: #### H EMOG, BMP3M, MG3 #### [facility] [address] [place], [place] WBC (Bld) [#/Vol] 6.6 10*3/uL Normal 3.6-10.7 [facility] Comment on above: Performed By: #### H EMOShira, BMP3M, MG3 #### [facility] [address] [place], [place] [id number] 07-06-2020 SARS-CoV-2 SARS-CoV-2 --> Statu s: F Not Detected. Expected Result: Not Detected _ Real-time, RT-PCR performed on the [employer] System by the [facility]. Negative results do not preclude SARS-CoV-2 infection and should not be used as the sole basis for treatment or other patient management decisions. This assay was developed by [employer] and distributed under an Emergency Use Authorization (EUA) granted by the FDA for the qualitative detection of SARS-CoV-2 nucleic acid. Expected Result: Not Detected _ Real-time, RT-PCR performed on the [employer] System by the [facility]. Negative results do not preclude SARS-CoV-2 infection and should not be used as the sole basis for treatment or other patient management decisions. This assay was developed by [employer] and distributed under an Emergency Use Authorization (EUA) granted by the FDA for the qualitative detection of SARS-CoV-2 nucleic acid. Normal [facility] Comment on above: Performed By: #### H EMOShira, BMP3M, MG3 #### [facility] [address], [place] Urinalysison 07-06-2020 Appearance (U) Clear Clear [facility] Comment on above: . Bacteria, UA Few Abnormal Negative /[HPF] [place] Comment on above: . Bilirubin Urine Negative Negative mg/dL [place] Comment on above: . Color (U) Light-Yellow Lt. Yellow NA [place] Comment on above: . Glucose, Ur Normal Normal (<70) mg/dL [place] Comment on above: . Hyaline Casts, UA Negative Negative /[LPF] [place] Comment on above: . Interpretation and review of laboratory results Abnormal [place] Ketones Ql (U) Negative Negative mg/dL [place] Comment on above: . LEUKOCYTES, UA Negative Negative Philipp/uL [place] Comment on above: . Nitrite, Urine Negative Negative NA [place] Comment on above: . Occult Blood,Urine 0.1 mg/dL Abnormal Negative [place] Comment on above: . pH (U) 6.0 [pH] [place] Comment on above: . Protein (U) [Mass/Vol] 100 mg/dL Abnormal Negative [place], [place] Comment on above: . RBC (U) [#/Vol] 0-2 0 - 2 /[[facility]] [place] Comment on above: . Specific [place], Urine 1.010 M [place] Comment on above: . Squam Epithel, UA 3-5 3 - 5 /[HPF] [place] Comment on above: . Urobilinogen, Urine Normal Normal ( 0-1) mg/dL [place] Comment on above: . WBC, UA 3-5 0 - 5 /[HPF] [place] Comment on above: . Test Performed by [facility], [address] [place] [id number] [place] Urine Drug Screenon 07-06-19 21 Amphetamines, urine Negative [place] Barbiturates, Ur Negative [place] Benzodiazepine Ur Qual Negative [place], [place] Cocaine Metabolites, Ur Negative [place] Methadone, Urine Negative [place] Opiates, Urine Negative [place] Oxycodone Screen, Ur Negative [place] PCP, Urine Negative [place] Comment on above: The expected value f or all of the drugs listed above is Negative. The following drugs or drug groups have been screened for by Immunoassay at the following thresholds: Amphetamine class (1000 ng/mL), Barbiturates (200 ng/mL), Benzodiazepines (200 ng/mL), Cocaine (300 ng/mL), Methadone (300 ng/mL), Opiates (300 ng/mL), Oxycodone (100 ng/mL), and PCP (25 ng/mL). NOTE: These results are for medical treatment only. Analysis performed using non-forensic procedures. POSITIVE results are NOT confirmed by a more specific alternative method unless requested. If confirmation is needed, request confirmation under separate order. 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 There is elevation of the right hemidiaphragm. Both diaphragms moved to some extent, however the right less so than the left. No complete paralysis is evident. Thoracolumbar scoliosis is noted. IMPRESSION: Asymmetric movement of the diaphragms, right less than left. Plate Driller: PSCMaria Alejandra Transcribe Date/Time: May 31 2020 10:50A Dictated by : VICKIE WINTERS MD This examination was interpreted and the report reviewed and electronically signed by: VICKIE WINTERS MD on May 31 2020 10:52AM EST [id number] [facility] 05-17-2020 [facility] Telephone (CDPLM) -------- ALFIE HOGAN ([id number]) 1960 F Date Time Provider Department 05/17/20 GALO JAMESON (EX PHYS) [facility] During your visit today, we recorded the following information about you: Lucina Booth 05/17/2020 9:45 AM Signed Spoke to patient about Pulm Rehab at [place] Pt to start 07-08-2020 at 12pm. Pt was offered appointment this week at our 3pm class time but pt did not want to participate that late in the day. Pt took down our phone number and will call back if she changes her mind. Pt also to check coverage with insurance in the meantime. Allergies As of Date: 05/17/2020 Noted Allergy Reaction CAT HAIR STANDARDIZED ALLERGENIC *10/31/2017 14 - Other: See Comments DUST 04/13/2014 14 - Other: See Comments Comments: sneezing PENICILLINS 09/13/2005 PERCOCET (OXYCODONE-ACETAMINOPHEN )01/13/2015 9 - Itching SEASONAL ALLERGIES 04/13/2014 14 - Other: See Comments Comments: ragweed, cats, pollen cause sneezing and eyes watering Date Reviewed: 02/02/2020 Reviewed by: Stan Peacock - Fully Assessed Reason for Visit: Pulm Rehab [3659] Prescriptions as of 05/17/2020 Sig: PROCHLORPERAZINE MALEATE 10 M* Take 1 tablet by mouth every * NIACIN 500 MG TABLET Take 1 tablet by mouth twice * FUROSEMIDE 80 MG TABLET Take 1 tablet by mouth once d* POTASSIUM CHLORIDE ER 10 MEQ * Take 6 tablets by mouth twice* MOMETASONE-FORMOTEROL HFA 100* Inhale 2 Puffs as instructed * BIPAP PANTOPRAZOLE 40 MG TABLET,DEL* Take 40 mg by mouth once earl* ATORVASTATIN 40 MG TABLET take 1 tablet at bedtime for * ALBUTEROL SULFATE HFA 90 MCG/* Inhale 2 Puffs as instructed * DAILY VITAMIN ORAL Take 1 tablet by mouth once d* Problem List As Of Date 05/17/2020 Noted Resolved CHOLECYSTITIS SEE ALSO GALLBLADDER CHRONIC [K*09/11/2006 12/15/2014 Diaphragmatic hernia without mention of obstruc*04/11/2011 Acute gastritis without mention of hemorrhage [*04/11/2011 12/15/2014 Esophagitis, unspecified [K20.90] 04/11/2011 12/15/2014 Dyspepsia and other specified disorders of func*04/11/2011 12/15/2014 Hypertension [I10] 12/15/2014 Tobacco use disorder [F17.200] 12/15/2014 GENNARO (obstructive sleep apnea) [G47.33] More... Arthritis, multiple joint involvement [M12.9] Asthma [J45.909] Depression with anxiety [F41.8] Hyperlipidemia [E78.5] 11/28/2011 12/15/2014 Right groin pain [R10.31] 07/29/2012 11/22/2016 Acute right hip pain [M25.551] 08/05/2012 11/22/2016 DDD (degenerative disc disease), lumbar [M51.36] Acute renal failure (HCC) [N17.9] 11/22/2016 More... Lumbar scoliosis [M41.9] 12/15/2014 Primary osteoarthritis of right hip [M16.11] 01/11/2015 History of right hip replacement [Z96.641] 02/01/2015 History of kidney injury [Z87.828] 11/22/2016 More... Chronic insomnia [F51.04] 08/03/2017 More... 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 FALL SCREENING: Has the patient had 2 falls in the last year or 1 fall with injury or currently using an Ambulatory Assistive Device (Walker, Cane, Wheelchair, Crutches, etc.)? No PATIENT GENDER DATA: Female. status: : No status: NO. PATIENT RELEVANT IMPLANT DATA REVIEWED: Not Applicable RADIOLOGY DEPARTMENT: CT; Exam(s) Completed: Chest PERIPHERAL IV DATA: Not applicable SIGNED BY: SHEKHAR Trivedi April 19, 2020 10:00 AM [facility] CT CHEST WO IVCONon 04-19-[address] CHEST WO IVCON * * *Final Report* * * DATE OF EXAM: Apr 19 2020 10:01AM [facility] 0541 - CT CHEST WO IVCON / PROCEDURE REASON: multiple diagnoses * * * * Physician Interpretation * * * * EXAMINATION: CHEST CT WITHOUT CONTRAST CLINICAL HISTORY: Interstitial pulmonary disease (HCC) Dyspnea on exertion For parenchymal veiw of lungs with perfusion portion of VQ scan VQ SCAN SOB Technique: Spiral CT acquisition of the chest from the thoracic inlet to the upper abdomen without contrast. MQ: [id number] CT Radiation dose: Integrated Dose-length product (DLP) for this visit = 678 mGy*cm CT Dose Reduction Employed: mAs-kVp adjusted based on patient size-age Comparison: 11/29/2016 RESULT: Limitations: None. Lines, tubes, and devices: None. Lung parenchyma and airways: Scattered areas of atelectasis or scarring are seen within the lungs. 3 mm nodule in the lingula. This is unchanged from the 11/29/2016 CT. No new pulmonary nodularity is seen. No infiltrate or pneumothorax. Central airways are patent. Pleural space: No pleural effusion. No pleural thickening. Lower neck, lymph nodes, and mediastinum: Multiple nodules in the left and right lobes of the thyroid. Nodule in the right lobe of the thyroid measures approximately 1.1 cm. No axillary or mediastinal adenopathy. Heart, pericardium, and thoracic vessels: Atherosclerotic calcifications involving the thoracic aorta and coronary arteries. Enlargement of the main pulmonary artery which measures approximately 4 cm in transverse. Cardiac chambers are unremarkable in appearance. No pericardial effusion or pericardial thickening. Bones and soft tissues: Right-sided convex curvature of the thoracic spine with compensatory left-sided convex curvature of the lumbar spine. No acute osseous abnormality identified. Upper abdomen: Diffuse fatty infiltration liver. Area of focal fatty sparing versus lesion involving the anterior left lobe of the liver. Similar-appearing finding is seen within the central right lobe of the liver (series 2 image 158). These are unchanged from the prior exam. Vascular calcifications in the upper abdomen. Die Casting Machine Operator (topogram) images: No additional findings. IMPRESSION: No evidence of interstitial lung disease. No honeycombing or bronchiectasis. Enlargement of the main pulmonary artery likely related to pulmonary arterial hypertension. Vascular disease. Stable appearing pulmonary nodularity. Thyroid nodules. Incidental Finding: Follow-up with a dedicated thyroid ultrasound for this incidentally detected thyroid nodule(s) 1.0 cm or larger in a patient with no known thyroid disease is recommended. Follow-up thyroid ultrasound should be performed in the outpatient setting. [employer] 2015 Plate Driller: [id number] Transcribe Date/Time: Apr 19 2020 11:06A Dictated by : YURI PRICE MD This examination was interpreted and the report reviewed and electronically signed by: YURI PRICE MD on Apr 19 2020 11:15AM EST [id number] [facility] NM LUNG VENT / PERF VQon NM LUNG VENT / PERF VQ * * *Final Report * * * DATE OF EXAM: Apr 19 2020 9:50AM [facility]NA 0032 - GA LUNG VENT / PERF VQ / PROCEDURE REASON: multiple diagnoses * * * * Physician Interpretation * * * * PERFUSION LUNG SCAN CLINICAL HISTORY: Shortness of breath. CORRELATION: Chest CT 04/19/2020. TECHNIQUE: Due to the ongoing COVID-19 pandemic, following consultation with the clinical service, only the perfusion portion of the VQ scan was performed. 5.4 mCi Tc 99m MAA IV Planar imaging of the lungs in multiple views (anterior, posterior, bilateral oblique and lateral views) as well as SPECT imaging of the thorax was performed RESULT: Perfusion findings- nonsegmental decreased uptake in the right lung base corresponds to the elevated right hemidiaphragm. No moderate/large segmental perfusion defect(s). The perfusion only images acquired during the ongoing COVID-19 pandemic are interpreted using the modified PIOPED and/or PISAPED criteria. IMPRESSION: * LOW probability perfusion scan. Plate Driller: [email or web address] Transcribe Date/Time: Apr 19 2020 10:33A Dictated by : JOSE ALFREDO KAT MD This examination was interpreted and the report reviewed and electronically signed by: JOSE ALFREDO KAT MD on Apr 19 2020 10:38AM EST [id number] [facility] PROGRESSon 04-19-2020 PROGRESS HNO ID: [id number] Author: Bridgette ([facility]) Tasha, SHEKHAR Service: Radiology Author Type: Clinical Loss Prevention Specialist Type: Progress Notes Filed: 04/19/2020 10:22 AM Note Text: RADIOLOGY SERVICE PROGRESS NOTE SERVICE DATE: 04/19/2020 SERVICE TIME: 10:20 AM PATIENT IDENTITY VERIFICATION COMPLETED USING TWO (2) STANDARD IDENTIFIERS: Name and Date of confirmed by patient verbally FALL SCREENING: Has the patient had 2 falls in the last year or 1 fall with injury or currently using an Ambulatory Assistive Device (Walker, Cane, Wheelchair, Crutches, etc.)? Yes, Patient High Risk for Falls What interventions were put in place to prevent falls during this visit? Yellow Falls Risk Wristband Applied, Offered Assistance with Transfers/Clothing and Increased Observations by Caregivers PATIENT GENDER DATA: .female : No ALLERGIES: Reviewed and unchanged MEDICATIONS REVIEWED: Not applicable PATIENT RELEVANT IMPLANT DATA REVIEWED: Not Applicable CREATININE: Creatinine Date Value Ref Range Status 02/02/2020 1.31 (H) 0.58 - 0.96 mg/dL Final 02/17/2017 0.71 0.58 - 0.96 mg/dL Final 11/22/2016 0.93 0.58 - 0.96 mg/dL Final eGFR-All Other Races Date Value Ref Range Status 02/02/2020 42 . Final Comment: eGFR (Estimated GFR) Units of measure: mL/min/1.73 meters squared eGFR is derived from the reexpressed MDRD Study equation using the following parameters: serum creatinine, age, gender and race. The creatinine assay has been calibrated to be traceable to IDMS. An eGFR <60 mL/min/1.73m2 for >3 months is consistent with chronic kidney disease. Refer to KDOQI guidelines for clinical interpretation. In patients with unstable renal function, e.g. those with acute kidney injury, the eGFR may not accurately reflect actual GFR. eGFR- Date Value Ref Range Status 02/02/2020 50 Final P.O.C.T. RESULTS: N/A April 19, [address] PERFORMED: No IV SITE: Ambulatory: A peripheral IV was started in the Left forearm with a Angio cath: 22 gauge. POST EXAM PIV STATUS: Discontinued PROCEDURE TYPE: VQ Scan: 5.4 mCi of Tc99m MAA was administered IV. ADMINISTRATION TIME: 9:23 PATIENT DISCHARGED TO: Ambulatory patient, left NM department area. A Diagnostic radioactive procedure has taken place, with no further precautions necessary other than routine body substance precautions. More information regarding radiation safety can be found using this link: [email or web address] SIGNATURE: KEYSHAWN Carmichael PATIENT NAME: Alfie Hogan DATE: April 19, 2020 TIME: 10:20 AM PAGER/CONTACT #: Normal [facility] Lipid Panelon 04-13-2020 Cholesterol [Mass/Vol] 197 mg/dL <200 [place], [place] Cholesterol in HDL [Mass/Vol] 104 mg/dL High 40 - 60 mg/dL [place], [place] Cholesterol in LDL [Mass/Vol] 38 mg/dL <100 [place], [place] Cholesterol.total/Adriana sterol in HDL [Mass ratio] 2 {ratio} [facility] [employer] [place] Comment on above: Ref Range: < 3 Low Risk for CHD 3-6 Mod Risk for CHD > 6 High Risk for CHD Interpretation and review of laboratory results Abnormal [facility] [employer] [employer] [place] Triglyceride [Mass/Vol] 274 mg/dL Abnormal <150 M [facility] [employer] Test Performed by [facility], [address] [place], [place] [id number] [place], [place] [address] ESRon 12-11-2019 ESR (Bld) [Velocity] 8 mm/h Normal 0-30 [facility] ([place]) Comment on above: Performed By: #### C BC, ADIFF, ANEU, LAC, CRP, MG, TSH, CMP, GFR, DIMER, ESR #### [address] [address] #### TROP, PBNP #### [address] [address] .Auto Diffon 12-10-2019 Ammonia (P) [Mass/Vol] 0.40 10 3/mcL Normal 0.15-1.00 [facility] ([place]) Comment on above: Performed By: #### C BC, ADIFF, ANEU, LAC, CRP, MG, TSH, CMP, GFR, DIMER, ESR #### [address] [address] #### TROP, PBNP #### [address] [address] Basophils (Bld) [#/Vol] 0.00 10 3/mcL Normal 0.00-0.19 [facility] ([place]) Comment on above: Performed By: #### C BC, ADIFF, ANEU, LAC, CRP, MG, TSH, CMP, GFR, DIMER, ESR #### [address] [address] #### TROP, PBNP #### [address] [address] Basophils/100 WBC (Bld) 0.9 % Normal 0.0-2.5 A [facility] ([place]) Comment on above: Performed By: #### C BC, ADIFF, ANEU, LAC, CRP, MG, TSH, CMP, GFR, DIMER, ESR #### [address] [address] #### TROP, PBNP #### [address] [address] Eosinophils (Bld) [#/Vol] 0.00 10 3/mcL Normal 0.00-0.40 [facility] ([place]) Comment on above: Performed By: #### C BC, ADIFF, ANEU, LAC, CRP, MG, TSH, CMP, GFR, DIMER, ESR #### [address] [address] #### TROP, PBNP #### [address] [address] Eosinophils/100 WBC (Bld) 0.9 % Normal 0.0-7.0 [facility] ([place]) Comment on above: Performed By: #### C BC, ADIFF, ANEU, LAC, CRP, MG, TSH, CMP, GFR, DIMER, ESR #### [address] [address] #### TROP, PBNP #### [address] [address] Lymphocytes (Bld) [#/Vol] 1.10 10 3/mcL Normal 0.77-3.85 [facility] ([place]) Comment on above: Performed By: #### C BC, ADIFF, ANEU, LAC, CRP, MG, TSH, CMP, GFR, DIMER, ESR #### [place] [address] #### TROP, PBNP #### [address] [address] Lymphocytes/100 WBC (Bld) 21.4 % Normal 10.0-50.0 [facility] ([place]) Comment on above: Performed By: #### C BC, ADIFF, ANEU, LAC, CRP, MG, TSH, CMP, GFR, DIMER, ESR #### [address] [address] #### TROP, PBNP #### [address] [address] Monocytes/100 WBC (Bld) 7.9 % Normal 1.7-13.0 A [facility] ([place]) Comment on above: Performed By: #### C BC, ADIFF, ANEU, LAC, CRP, MG, TSH, CMP, GFR, DIMER, ESR #### [address] [address] #### TROP, PBNP #### [address] [address] Neutrophils/100 WBC (Bld) 68.9 % Normal 37.0-80.0 [facility] ([place]) Comment on above: Performed By: #### C BC, ADIFF, ANEU, LAC, CRP, MG, TSH, CMP, GFR, DIMER, ESR #### [address] [address] #### TROP, PBNP #### [address] [address] .GFRon 12-10-2019 GFR Non- 44 ml/min/1.73sqm Normal [facility] ([place]) Comment on above: Result Comment: GFR Population mean for , Non- Americans Ages 20-29 = 116 mL/min/1.73 sq.m. Ages 30-39 = 107 mL/min/1.73 sq.m. Ages 40-49 = 99 mL/min/1.73 sq.m. Ages 50-59 = 93 mL/min/1.73 sq.m. Ages 60-69 = 85 mL/min/1.73 sq.m. Ages 70+ = 75 mL/min/1.73 sq.m. Chronic Kidney Disease: Less than 60 mL/min/1.73 square meters End Stage Renal Disease: Less than 15 mL/min/1.73 square meters Performed By: #### C BC, ADIFF, ANEU, LAC, CRP, MG, TSH, CMP, GFR, DIMER, ESR #### [address] [address] #### TROP, PBNP #### [address] [address] GFR 53 ml/min/1.73sqm Normal [facility] ([place]) Comment on above: Result Comment: GFR Population mean for , Non- Americans Ages 20-29 = 116 mL/min/1.73 sq.m. Ages 30-39 = 107 mL/min/1.73 sq.m. Ages 40-49 = 99 mL/min/1.73 sq.m. Ages 50-59 = 93 mL/min/1.73 sq.m. Ages 60-69 = 85 mL/min/1.73 sq.m. Ages 70+ = 75 mL/min/1.73 sq.m. Chronic Kidney Disease: Less than 60 mL/min/1.73 square meters End Stage Renal Disease: Less than 15 mL/min/1.73 square meters Performed By: #### C BC, ADIFF, ANEU, LAC, CRP, MG, TSH, CMP, GFR, DIMER, ESR #### [address] [address] #### TROP, PBNP #### [address] [address] .NEUABSon 12-10-2019 Neutrophils (Bld) [#/Vol] 3.40 10 3/mcL Normal 2.85-6.16 [facility] ([place]) Comment on above: Performed By: #### C BC, ADIFF, ANEU, LAC, CRP, MG, TSH, CMP, GFR, DIMER, ESR #### [place] [address] #### TROP, PBNP #### [place] [address] CBCon 12-10-2019 Erythrocyte distribution width (RBC) [Ratio] 16.1 % High 11.5-14.5 [facility] ([place]) Comment on above: Performed By: #### C BC, ADIFF, ANEU, LAC, CRP, MG, TSH, CMP, GFR, DIMER, ESR #### [place] [address] #### TROP, PBNP #### [place] [address] Hematocrit (Bld) [Volume fraction] 39.0 % Normal 37.0-47.0 [facility] ([place]) Comment on above: Performed By: #### C BC, ADIFF, ANEU, LAC, CRP, MG, TSH, CMP, GFR, DIMER, ESR #### [place] [address] #### TROP, PBNP #### [place] [address] Hemoglobin (Bld) [Mass/Vol] 12.6 G/dL Normal 12.0-16.0 [facility] ([place]) Comment on above: Performed By: #### C BC, ADIFF, ANEU, LAC, CRP, MG, TSH, CMP, GFR, DIMER, ESR #### [address] [address] #### TROP, PBNP #### [address] [address] MCH (RBC) [Entitic mass] 30.8 pg Normal 27.0-31.2 [facility] ([place]) Comment on above: Performed By: #### C BC, ADIFF, ANEU, LAC, CRP, MG, TSH, CMP, GFR, DIMER, ESR #### [place] [address] #### TROP, PBNP #### [address] [address] MCHC (RBC) [Mass/Vol] 32.3 G/dL Low 33.0-37.0 [facility] ([place]) Comment on above: Performed By: #### C BC, ADIFF, ANEU, LAC, CRP, MG, TSH, CMP, GFR, DIMER, ESR #### [place] [address] #### TROP, PBNP #### [address] [address] MCV (RBC) [Entitic vol] 95.3 fL High 80.0-94.0 A [facility] ([place]) Comment on above: Performed By: #### C BC, ADIFF, ANEU, LAC, CRP, MG, TSH, CMP, GFR, DIMER, ESR #### [address] [address] #### TROP, PBNP #### [address] [address] Platelet mean volume (Bld) [Entitic vol] 8.1 fL Normal 7.4-10.4 [facility] ([place]) Comment on above: Performed By: #### C BC, ADIFF, ANEU, LAC, CRP, MG, TSH, CMP, GFR, DIMER, ESR #### [place] [id number] #### TROP, PBNP #### [address] [address] Platelets (Bld) [#/Vol] 187 10 3/mcL Normal 130-400 [facility] ([place]) Comment on above: Performed By: #### C BC, ADIFF, ANEU, LAC, CRP, MG, TSH, CMP, GFR, DIMER, ESR #### [place] [address] #### TROP, PBNP #### [place] [address] RBC (Bld) [#/Vol] 4.09 10 6/mcL Low 4.20-5.40 [facility] ([place]) Comment on above: Performed By: #### C BC, ADIFF, ANEU, LAC, CRP, MG, TSH, CMP, GFR, DIMER, ESR #### [place] [address] #### TROP, PBNP #### [place] [address] WBC (Bld) [#/Vol] 5.00 10 3/mcL Normal 4.60-10.80 [facility] ([place]) Comment on above: Performed By: #### C BC, ADIFF, ANEU, LAC, CRP, MG, TSH, CMP, GFR, DIMER, ESR #### [place] [address] #### TROP, PBNP #### [place] [address] CMPon 12-10-2019 Albumin [Mass/Vol] 4.7 G/dL Normal 3.5-5.0 [facility] ([place]) Comment on above: Performed By: #### C BC, ADIFF, ANEU, LAC, CRP, MG, TSH, CMP, GFR, DIMER, ESR #### [address] [address] #### TROP, PBNP #### [place] [address] Albumin/Globulin [Mass ratio] 1.9 {ratio} Normal 1.1-2.5 [facility] ([place]) Comment on above: Performed By: #### C BC, ADIFF, ANEU, LAC, CRP, MG, TSH, CMP, GFR, DIMER, ESR #### [address] [address] #### TROP, PBNP #### [address] [address] ALP [Catalytic activity/Vol] 120 U/L Normal 40-135 [facility] ([place]) Comment on above: Performed By: #### C BC, ADIFF, ANEU, LAC, CRP, MG, TSH, CMP, GFR, DIMER, ESR #### [address] [address] #### TROP, PBNP #### [address] [address] ALT [Catalytic activity/Vol] 63 U/L High 10-35 [facility] ([place]) Comment on above: Performed By: #### C BC, ADIFF, ANEU, LAC, CRP, MG, TSH, CMP, GFR, DIMER, ESR #### [address] [address] #### TROP, PBNP #### [address] [address] AST [Catalytic activity/Vol] 37 U/L Normal 10-40 [facility] ([place]) Comment on above: Performed By: #### C BC, ADIFF, ANEU, LAC, CRP, MG, TSH, CMP, GFR, DIMER, ESR #### [address] [address] #### TROP, PBNP #### [address] [address] Bili Total 1.5 mg/dL High 0.2-1.0 [facility] ([place]) Comment on above: Result Comment: Use of this assay is not recommended for patients undergoing treatment with eltrombopag due to the potential for falsely elevated results. Performed By: #### C BC, ADIFF, ANEU, LAC, CRP, MG, TSH, CMP, GFR, DIMER, ESR #### [place] [address] [place], [place] [address] #### TROP, PBNP #### [address] [address] Calcium [Mass/Vol] 9.2 mg/dL Normal 8.4-10.2 [facility] ([place]) Comment on above: Performed By: #### C BC, ADIFF, ANEU, LAC, CRP, MG, TSH, CMP, GFR, DIMER, ESR #### [address] [address] #### TROP, PBNP #### [address] [address] Chloride [Moles/Vol] 100 mmol/L Normal 98-107 [facility] ([place]) Comment on above: Performed By: #### C BC, ADIFF, ANEU, LAC, CRP, MG, TSH, CMP, GFR, DIMER, ESR #### [place] [address] #### TROP, PBNP #### [place] [address] CO2 [Moles/Vol] 31 mmol/L High 22-29 [facility] ([place]) Comment on above: Performed By: #### C BC, ADIFF, ANEU, LAC, CRP, MG, TSH, CMP, GFR, DIMER, ESR #### [address] [address] #### TROP, PBNP #### [address] [address] Creatinine [Mass/Vol] 1.25 mg/dL High 0.55-1.02 [facility] ([place]) Comment on above: Performed By: #### C BC, ADIFF, ANEU, LAC, CRP, MG, TSH, CMP, GFR, DIMER, ESR #### [address] [address] #### TROP, PBNP #### [address] [address] Electrolyte Balance 10.0 mEq/L Normal [facility] ([place]) Comment on above: Performed By: #### C BC, ADIFF, ANEU, LAC, CRP, MG, TSH, CMP, GFR, DIMER, ESR #### [address] [address] #### TROP, PBNP #### [address] [address] Globulin (S) [Mass/Vol] 2.5 G/dL Normal A [facility] ([place]) Comment on above: Performed By: #### C BC, ADIFF, ANEU, LAC, CRP, MG, TSH, CMP, GFR, DIMER, ESR #### [address] [address] #### TROP, PBNP #### [address] [address] Glucose [Mass/Vol] 129 mg/dL High 70-105 [facility] ([place]) Comment on above: Performed By: #### C BC, ADIFF, ANEU, LAC, CRP, MG, TSH, CMP, GFR, DIMER, ESR #### [address] [address] #### TROP, PBNP #### [address] [address] Potassium [Moles/Vol] 4.0 mmol/L Normal 3.5-5.1 [facility] ([place]) Comment on above: Performed By: #### C BC, ADIFF, ANEU, LAC, CRP, MG, TSH, CMP, GFR, DIMER, ESR #### [address] [address] #### TROP, PBNP #### [address] [address] Protein [Mass/Vol] 7.2 G/dL Normal 6.4-8.2 [facility] ([place]) Comment on above: Performed By: #### C BC, ADIFF, ANEU, LAC, CRP, MG, TSH, CMP, GFR, DIMER, ESR #### [address] [address] #### TROP, PBNP #### [address] [address] Sodium [Moles/Vol] 141 mmol/L Normal 136-145 [facility] ([place]) Comment on above: Performed By: #### C BC, ADIFF, ANEU, LAC, CRP, MG, TSH, CMP, GFR, DIMER, ESR #### [address] [address] #### TROP, PBNP #### [place] [address] Urea nitrogen [Mass/Vol] 17 mg/dL Normal 7-18 [facility] ([place]) Comment on above: Performed By: #### C BC, ADIFF, ANEU, LAC, CRP, MG, TSH, CMP, GFR, DIMER, ESR #### [place] [address] #### TROP, PBNP #### [place] [address] Urea nitrogen/Creatinine [Mass ratio] 14 ratio Normal 7-27 [facility] ([place]) Comment on above: Performed By: #### C BC, ADIFF, ANEU, LAC, CRP, MG, TSH, CMP, GFR, DIMER, ESR #### [place] [address] #### TROP, PBNP #### [place] [address] CRPon 12-10-2019 CRP [Mass/Vol] mg/L Normal 0.0-0.9 [facility] ([place]) Comment on above: Performed By: #### C BC, ADIFF, ANEU, LAC, CRP, MG, TSH, CMP, GFR, DIMER, ESR #### [place] [address] #### TROP, PBNP #### [place] [address] DIMERon 12-10-2019 Fibrin D-dimer FEU IA (Bld) [Mass/Vol] ug/mL Normal 0-230 [facility] ([place]) Comment on above: Result Comment: The result of the D-Dimer test should be evaluated in the context of all the clinical and laboratory data available. In those instances where the laboratory result does not agree with the clinical evaluation, additional tests should be performed accordingly. If the D-Dimer result is used to exclude DVT or PE, the recommended cutoff value is less than 230 ng/mL. The D-Dimer result should not be used alone to rule in DVT/PE, but should be used in conjunction with a clinical pretest probability (PTP)assessment model to exclude venous thromboembolism (VTE) in outpatients suspected of deep venous thrombosis (DVT) and pulmonary embolism (PE). Performed By: #### C BC, ADIFF, ANEU, LAC, CRP, MG, TSH, CMP, GFR, DIMER, ESR #### [place] [address] #### TROP, PBNP #### [place] [address] LACon 12-10-2019 Lactic Acid Lvl 1.1 mmol/L Normal 0.4-2.0 [facility] ([place]) Comment on above: Performed By: #### C BC, ADIFF, ANEU, LAC, CRP, MG, TSH, CMP, GFR, DIMER, ESR #### [place] [address] #### TROP, PBNP #### [place] [address] MGon 12-10-2019 Magnesium [Mass/Vol] 1.9 mg/dL Normal 1.8-2.4 [facility] ([place]) Comment on above: Performed By: #### C BC, ADIFF, ANEU, LAC, CRP, MG, TSH, CMP, GFR, DIMER, ESR #### [place] [address] #### TROP, PBNP #### [place] [address] PBNPon 12-10-2019 Natriuretic peptide B (Bld) [Mass/Vol] 152 pg/mL High 0-125 [facility] ([place]) Comment on above: Result Comment: NT-p roBNP results of less than 300 pg/mL effectively rules out acute congestive heart failure with 99% negative predictive value. Performed By: #### C BC, ADIFF, ANEU, LAC, CRP, MG, TSH, CMP, GFR, DIMER, ESR #### [place] [address] #### TROP, PBNP #### [place] [address] TROPon 12-10-2019 Troponin I.cardiac [Mass/Vol] ng/mL Normal 0.000-0.040 [facility] ([place]) Comment on above: Result Comment: Trop onin I reference range: 0.00-0.040 ng/mL Negative and non-diagnostic. >0.040 ng/mL Consistent with cardiac damage, increased clinical risk and possibility of myocardial infarction. Serial measurements, a rise & fall in test results, clinical history, appropriate symptoms and/or ECG changes may help assess possibility of CT. *Other non-acute coronary syndrome conditions such as CHF, myocarditis, pulmonary emboli, sepsis and cardiac surgery could result in myocardial damage and increased troponin levels. Performed By: #### C BC, ADIFF, ANEU, LAC, CRP, MG, TSH, CMP, GFR, DIMER, ESR #### [place] [address] #### TROP, PBNP #### [place] [address] TSHon 12-10-2019 TSH Qn 0.56 mcIU/mL Normal 0.36-3.74 [facility] ([place]) Comment on above: Performed By: #### C BC, ADIFF, ANEU, LAC, CRP, MG, TSH, CMP, GFR, DIMER, ESR #### [place] [id number] #### TROP, PBNP #### [place] [address] UAon 12-10-2019 Color (U) Yellow Normal [facility] [place] ([place] Comment on above: Performed By: #### U A #### [place] [id number] Glucose (U) [Mass/Vol] Negative Normal Negative [facility] ([place]) Comment on above: Performed By: #### U A #### [address] [address] Ketones Ql (U) Negative Normal Negative [facility] [place] ([place]) Comment on above: Performed By: #### U A #### [address] [address] UA Appear Clear Normal Clear [facility] [place] ([place]) Comment on above: Performed By: #### U A #### [address] [address] UA Blood Trace Abnormal Negative [facility] [place] ([place]) Comment on above: Performed By: #### U A #### [place] [address] UA Leuk Est Negative Normal Negative [facility] [place] ([place]) Comment on above: Performed By: #### U A #### [address] [address] UA Nitrite Negative Normal Negative [facility] [place] ([place]) Comment on above: Performed By: #### U A #### [address] [address] UA pH 5.0 Normal 5.0 - 8.0 [facility] [place] ([place]) Comment on above: Performed By: #### U A #### [address] [address] UA Protein Negative Normal Negative [facility] [place] ([place]) Comment on above: Performed By: #### U A #### [place] [address] UA Spec Grav 1.015 Normal 1.015-1.025 [facility] [place] ([place]) Comment on above: Performed By: #### U A #### [place] [address] UA Specimen Type Clean Catch Normal [facility] [place] ([place]) Comment on above: Performed By: #### U A #### [address] [address] UA Urobilinogen 0.2 E.U./dL Normal 0.2-1.0 [facility] [place] ([place]) Comment on above: Performed By: #### U A #### [facility] [address] [place], [place] [address] Urobilinogen Qn (U) Negative Normal Negative [facility] ([place]) Comment on above: Performed By: #### U A #### [facility] [address] [place], [place] [address] XR CHEST 1 VIEWon 12-10-2019 XR CHEST 1 VIEW ORIGINAL XR CHEST 1 VIEW CLINICAL STATEMENT: chest pain. COMPARISON: None FINDINGS: The cardiomediastinal silhouette is exaggerated by the AP technique. There is no tracheal deviation. No pneumothorax is seen. Hazy opacities at the costophrenic sulci are due to overlying soft tissue. No measurable pleural effusion is seen. There is no definite consolidation. IMPRESSION: No acute cardiopulmonary abnormality. Interpreted By: Adelina Ricardo Preliminary Report By: Adelina Ricardo Electronically Signed By: Adelina Ricardo Dictated Date: 12/10/2019 12:42:13 PM Prelim Date: 12/10/2019 12:42:13 PM Sign Date: 12/10/2019 12:45:37 PM Ordering Provider:Jan Wang [facility] [place] ([place]) COVID19 IgG, Qual by ALICEon 0 10-28-2019 COVID-19 IgG, Qual Positive Negative [facility] Comment on above: Result Comment: A po sitive result suggests exposure to SARS-CoV-2 (COVID-19) but does not necessarily indicate immunity. Results from antibody testing should not be used as the sole basis to diagnose or exclude SARS-CoV-2 infection or to inform infection status. False positive results can occur due to past or present infection with [id number] coronavirus strains, such as coronavirus HKU1, NL63, OC43, or 229E. INTERPRETIVE INFORMATION: COVID-19 IgG, Qualitative by ALICE The COVID-19 IgG, Qualitative by ALICE test is for in vitro diagnostic use under an FDA Emergency Use Authorization (EUA). In compliance with this authorization, please visit [email or web address] for more information and to access the applicable information sheets. This test should not be used for screening of donated blood. Performed by [facility], [address] [place] [id number] [email or web address], Heriberto Nelson MD - Lab. Director Performed By: #### Sky MARION, CRP2 #### [facility] [address] [place] [address] #### IGA #### [facility] [address] [place] [address] #### TTGA2, EMABO #### The performing lab is in the report. CULT./ST. RESPIRATORYon 10-03 CULT./ST. RESPIRATORY CULT./ST. RESPIRAT ORY --> Status: F Rare normal respiratory orin. Normal [facility] Comment on above: Order Comment: Speci men Source Comment:Sputum Expectorated Performed By: #### E SR, CRP2 #### [facility] [place] [address] #### IGA #### [facility] [address] [place] [address] #### TTGA2, EMABO #### The performing lab is in the report. Basic Metabolic Panelon 10-03 Anion gap [Moles/Vol] 6 Normal [facility] Comment on above: Performed By: #### E SR, CRP2 #### [facility] [address] [place] [address] #### IGA #### [facility] [address] [place] [address] #### TTGA2, EMABO #### The performing lab is in the report. Calcium [Mass/Vol] 8.4 mg/dL Normal 8.4-10.4 [facility] Comment on above: Performed By: #### E SR, CRP2 #### [facility] [address] [place] [address] #### IGA #### [facility] [address] [place] [address] #### TTGA2, EMABO #### The performing lab is in the report. CO2 [Moles/Vol] 30 mmol/L Normal 22-30 [facility] Comment on above: Performed By: #### E SR, CRP2 #### [facility] [address] [place] [address] #### IGA #### [place] [address] [place] [address] #### TTGA2, EMABO #### The performing lab is in the report. Glucose [Mass/Vol] 125 mg/dL High 70-100 [facility] Comment on above: Performed By: #### E SR, CRP2 #### [facility] [place] [address] #### IGA #### [place] [address] [place] [address] #### TTGA2, EMABO #### The performing lab is in the report. Urea nitrogen [Mass/Vol] 17 mg/dL Normal 7-20 [facility] Comment on above: Performed By: #### E SR, CRP2 #### [facility] [place] [address] #### IGA #### [address] [place] [address] #### TTGA2, EMABO #### The performing lab is in the report. Creatinine [Mass/Vol] 0.87 mg/dL Normal 0.52-1.25 [facility] Comment on above: Performed By: #### E SR, CRP2 #### [facility] [place] [address] #### IGA #### [address] [place] [address] #### TTGA2, EMABO #### The performing lab is in the report. GFR/1.73 sq M predicted among blacks MDRD (S/P/Bld) [Vol rate/Area] 85.2 mL/min/{1.73_m2} Normal >60 [facility] Comment on above: Performed By: #### E SR, CRP2 #### [facility] [place] [address] #### IGA #### [address] [place] [address] #### TTGA2, EMABO #### The performing lab is in the report. GFR/1.73 sq M predicted among non-blacks MDRD (S/P/Bld) [Vol rate/Area] 73.5 mL/min/{1.73_m2} Normal >60 [facility] Comment on above: Result Comment: KDIG O guidelines provide the following GFR categories: Stage GFR(ml/min/1.73 m2) Terms G1 >=90 Normal or high G2 60-89 Mildly decreased* G3a 45-59 Mildly to moderately decreased G3b 30-44 Moderately to severely decreased G4 15-29 Severely decreased G5 <15 Kidney failure *Relative to young adult level. In the absence of evidence of kidney damage, neither GFR category G1 nor G2 fulfill the criteria for CKD. The CKD-EPI equation is validated in individuals 18 years of age and older. Currently the best equation for estimating glomerular filtration rate (GFR) from serum creatinine in children is the Bedside Vásquez equation. It is less accurate in patients with extremes of muscle mass, restriction of dietary protein, ingestion of creatine, extra-renal metabolism of creatinine, or treatment with medications that affect renal tubular creatinine secretion. Performed By: #### E SR, CRP2 #### [facility] [address] [place] [address] #### IGA #### [facility] [address] [place] [address] #### TTGA2, EMABO #### The performing lab is in the report. Chloride [Moles/Vol] 99 mmol/L Normal 98-107 [facility] Comment on above: Performed By: #### E SR, CRP2 #### [facility] [address] [place] [address] #### IGA #### [facility] [address] [place] [address] #### TTGA2, EMABO #### The performing lab is in the report. Potassium [Moles/Vol] 4.1 mmol/L Normal 3.5-5.1 [facility] [place] Comment on above: Performed By: #### E SR, CRP2 #### [facility] [address] [facility] [place] [address] #### IGA #### [facility] [address] [place] [address] #### TTGA2, EMABO #### The performing lab is in the report. Sodium [Moles/Vol] 135 mmol/L Normal 135-145 [place] Comment on above: Performed By: #### E SR, CRP2 #### [facility] [address] [place] [address] #### IGA #### [facility] [address] [place] [address] #### TTGA2, EMABO #### The performing lab is in the report. Anion gap [Moles/Vol] 6 mmol/L [place] Calcium [Mass/Vol] 8.4 mg/dL 8.4 - 10. 4 mg/dL [place] Chloride [Moles/Vol] 99 mmol/L 98 - 10 7 mmol/L [place] CO2 [Moles/Vol] 30 mmol/L 22 - 30 mmol/L [place] Creatinine [Mass/Vol] 0.87 mg/dL 0.52 - 1.25 mg/dL [place] EGFR IF NonAfrican [place] 73.5 mL/min >60 [place] Comment on above: KDIGO guidelines pro vide the following GFR categories: Stage GFR(ml/min/1.73 m2) Terms G1 >=90 Normal or high G2 60-89 Mildly decreased* G3a 45-59 Mildly to moderately decreased G3b 30-44 Moderately to severely decreased G4 15-29 Severely decreased G5 <15 Kidney failure *Relative to young adult level. In the absence of evidence of kidney damage, neither GFR category G1 nor G2 fulfill the criteria for CKD. The CKD-EPI equation is validated in individuals 18 years of age and older. Currently the best equation for estimating glomerular filtration rate (GFR) from serum creatinine in children is the Bedside Vásquez equation. It is less accurate in patients with extremes of muscle mass, restriction of dietary protein, ingestion of creatine, extra-renal metabolism of creatinine, or treatment with medications that affect renal tubular creatinine secretion. GFR/1.73 sq M predicted among blacks MDRD (S/P/Bld) [Vol rate/Area] 85.2 mL/min/{1.73_m2} >60 [place] Glucose [Mass/Vol] 125 mg/dL High 70 - 100 mg/dL [place] Interpretation and review of laboratory results Abnormal [place] Urea nitrogen [Mass/Vol] 17 mg/dL 7 - 20 mg/dL [place] CBC Auto Differentialon - Absolute Baso # 0.0 10*3/uL 0 - 0.2 10*3/uL [place] Absolute Neut # 1.6 10*3/uL Low 1.8 - 7 10*3/uL [place] Basophils/100 WBC (Bld) 1.4 % 0 - 2 % [place] Eosinophils (Bld) [#/Vol] 0.0 10*3/uL 0 - 0.5 10*3/uL [place] Eosinophils/100 WBC (Bld) 0.1 % Low 1 - 6 % [place] Erythrocyte distribution width (RBC) [Ratio] 18.0 % High 11.5 - 14.5 % [place] Granulocytes/100 WBC (Bld) 56.7 % 40 - 80 % [place] Hematocrit (Bld) [Volume fraction] 29.0 % Low 35 - 47 % [place] Hemoglobin (Bld) [Mass/Vol] 9.3 g/dL Low 11.7 - 16 g/dL [place] Interpretation and review of laboratory results Abnormal [place] Lymphocytes (Bld) [#/Vol] 0.9 10*3/uL Low 1 - 4.3 10*3/uL [place] Lymphocytes/100 WBC (Bld) 31.9 % 20 - 40 % [place] MCH (RBC) [Entitic mass] 30.9 pg 26 - 34 pg [place] MCHC (RBC) [Mass/Vol] 32.1 % 32 - 36 % [place] MCV (RBC) [Entitic vol] 96.5 fL 79 - 98 fL [place] Monocytes (Bld) [#/Vol] 0.3 10*3/uL 0 - 0.8 10*3/uL [place] Monocytes/100 WBC (Bld) 9.9 % 2 - 10 % [place] Platelet mean volume (Bld) [Entitic vol] 7.9 fL 7.4 - 10.4 fL [place] Platelets (Bld) [#/Vol] 173 10*3/uL 140 - 440 10*3/uL [place] RBC (Bld) [#/Vol] 3.01 10*6/uL Low 3.8 - 5.2 10*6/uL [place] WBC (Bld) [#/Vol] 2.9 10*3/uL Low 3.6 - 10.7 10*3/uL [place] Test Performed by [facility], [address] [place], [place] [id number] [place] [address] Hemogram w/ Autodiffon 10-25 Abs Baso Cnt 0.0 10*3/uL Normal 0.0-0.2 [facility] Comment on above: Performed By: #### E SR, CRP2 #### [facility] [address] [place] [address] #### IGA #### [facility] [address] [place] [address] #### TTGA2, EMABO #### The performing lab is in the report. Abs Neutrophile Cnt 1.6 10*3/uL Low 1.8-7.0 [facility] Comment on above: Performed By: #### E SR, CRP2 #### [facility] [address] [place] [address] #### IGA #### [facility] [address] [place] [address] #### TTGA2, EMABO #### The performing lab is in the report. Basophils/100 WBC (Bld) 1.4 % Normal 0.0-2.0 [facility] Comment on above: Performed By: #### E SR, CRP2 #### [facility] [address] [place] [address] #### IGA #### [facility] [address] [place] [address] #### TTGA2, EMABO #### The performing lab is in the report. Eosinophils (Bld) [#/Vol] 0.0 10*3/uL Normal 0.0-0.5 [facility] Comment on above: Performed By: #### E SR, CRP2 #### [address] [address] #### IGA #### [facility] [address] [place] [address] #### TTGA2, EMABO #### The performing lab is in the report. Eosinophils/100 WBC (Bld) 0.1 % Low 1.0-6.0 [facility] Comment on above: Performed By: #### E SR, CRP2 #### [address] [address] #### IGA #### [address] [place] [address] #### TTGA2, EMABO #### The performing lab is in the report. Erythrocyte distribution width (RBC) [Ratio] 18.0 % High 11.5-14.5 [facility] Comment on above: Performed By: #### E SR, CRP2 #### [address] [address] #### IGA #### [address] [place] [address] #### TTGA2, EMABO #### The performing lab is in the report. Granulocytes/100 WBC (Bld) 56.7 % Normal 40.0-80.0 [facility] Comment on above: Performed By: #### E SR, CRP2 #### [address] [address] #### IGA #### [address] [place] [address] #### TTGA2, EMABO #### The performing lab is in the report. Hematocrit (Bld) [Volume fraction] 29.0 % Low 35.0-47.0 [facility] Comment on above: Performed By: #### E SR, CRP2 #### [facility] [address] [place] [address] #### IGA #### [facility] [address] [place] [address] #### TTGA2, EMABO #### The performing lab is in the report. Hemoglobin (Bld) [Mass/Vol] 9.3 g/dL Low 11.7-16.0 [facility] Comment on above: Performed By: #### E SR, CRP2 #### [facility] [place] [address] #### IGA #### [facility] [address] [place] [address] #### TTGA2, EMABO #### The performing lab is in the report. Lymphocytes (Bld) [#/Vol] 0.9 10*3/uL Low 1.0-4.3 [facility] Comment on above: Performed By: #### E SR, CRP2 #### [facility] [place] [address] #### IGA #### [facility] [address] [place] [address] #### TTGA2, EMABO #### The performing lab is in the report. Lymphocytes/100 WBC (Bld) 31.9 % Normal 20.0-40.0 [facility] Comment on above: Performed By: #### E SR, CRP2 #### [facility] [place] [address] #### IGA #### [facility] [address] [place] [address] #### TTGA2, EMABO #### The performing lab is in the report. MCH (RBC) [Entitic mass] 30.9 pg Normal 26.0-34.0 [facility] Comment on above: Performed By: #### E SR, CRP2 #### [facility] [place] [address] #### IGA #### [place] [address] [place] [address] #### TTGA2, EMABO #### The performing lab is in the report. MCHC (RBC) [Mass/Vol] 32.1 % Normal 32.0-36.0 [facility] Comment on above: Performed By: #### E SR, CRP2 #### [facility] [address] [place] [address] #### IGA #### [place] [address] [place] [address] #### TTGA2, EMABO #### The performing lab is in the report. MCV (RBC) [Entitic vol] 96.5 fL Normal 79.0-98.0 [facility] Comment on above: Performed By: #### Sky SR, CRP2 #### [address] [address] #### IGA #### [address] [place] [address] #### TTGA2, EMABO #### The performing lab is in the report. Monocytes (Bld) [#/Vol] 0.3 10*3/uL Normal 0.0-0.8 [facility] Comment on above: Performed By: #### E SR, CRP2 #### [address] [address] #### IGA #### [address] [place] [address] #### TTGA2, EMABO #### The performing lab is in the report. Monocytes/100 WBC (Bld) 9.9 % Normal 2.0-10.0 [facility] Comment on above: Performed By: #### E SR, CRP2 #### [address] [address] #### IGA #### [address] [place] [address] #### TTGA2, EMABO #### The performing lab is in the report. Platelet mean volume (Bld) [Entitic vol] 7.9 fL Normal 7.4-10.4 [facility] Comment on above: Performed By: #### E SR, CRP2 #### [facility] [address] [place] [address] #### IGA #### [facility] [address] [place] [address] #### TTGA2, EMABO #### The performing lab is in the report. Platelets (Bld) [#/Vol] 173 10*3/uL Normal 140-440 [facility] Comment on above: Performed By: #### E SR, CRP2 #### [facility] [address] [place] [address] #### IGA #### [facility] [address] [place] [address] #### TTGA2, EMABO #### The performing lab is in the report. RBC (Bld) [#/Vol] 3.01 10*6/uL Low 3.80-5.20 [facility] Comment on above: Performed By: #### E SR, CRP2 #### [facility] [address] [place] [address] #### IGA #### [facility] [address] [place] [address] #### TTGA2, EMABO #### The performing lab is in the report. WBC (Bld) [#/Vol] 2.9 10*3/uL Low 3.6-10.7 [facility] Comment on above: Performed By: #### E SR, CRP2 #### [facility] [address] [place] [address] #### IGA #### [facility] [address] [place] [address] #### TTGA2, EMABO #### The performing lab is in the report. Magnesiumon 10-26-2019 Magnesium [Mass/Vol] 1.9 mg/dL Normal 1.6-2.3 [facility] Comment on above: Performed By: #### E SR, CRP2 #### [facility] [address] [place] [address] #### IGA #### [facility] [address] [place] [address] #### TTGA2, EMABO #### The performing lab is in the report. Magnesium [Mass/Vol] 1.9 mg/dL 1.6 - 2 .3 mg/dL [place] Otheron 10-26-2019 Test Performed by [facility], [address], [place], [place] [address] [place] STAIN GRAMon 10-26-2019 STAIN GRAM STAIN GRAM --> Statu s: F Moderate polymorphonuclear cells/lpf. Moderate epithelial cells/lpf. Rare gram positive cocci. Rare gram positive bacilli. Moderate epithelial cells/lpf. Rare gram positive cocci. Rare gram positive bacilli. Normal [facility] Comment on above: Order Comment: Speci men Source Comment:Sputum Expectorated Performed By: #### E SR, CRP2 #### [facility] [address] [place] [address] #### IGA #### [facility] [address] [place] [address] #### TTGA2, EMABO #### The performing lab is in the report. CBC auto differentialon 10-03 Erythrocyte distribution width (RBC) [Ratio] 17.7 % High 11.5 - 14.5 % [place] Hematocrit (Bld) [Volume fraction] 31.8 % Low 35 - 47 % [place] Hemoglobin (Bld) [Mass/Vol] 10.4 g/dL Low 11.7 - 16 g/dL [place] Interpretation and review of laboratory results Abnormal [place] MCH (RBC) [Entitic mass] 31.0 pg 26 - 34 pg [place] MCHC (RBC) [Mass/Vol] 32.8 % 32 - 36 % [place] MCV (RBC) [Entitic vol] 94.6 fL 79 - 98 fL [place] Platelet mean volume (Bld) [Entitic vol] 7.6 fL 7.4 - 10.4 fL [place] Platelets (Bld) [#/Vol] 182 10*3/uL 140 - 440 10*3/uL [place] RBC (Bld) [#/Vol] 3.36 10*6/uL Low 3.8 - 5.2 10*6/uL [place] WBC (Bld) [#/Vol] 2.7 10*3/uL Low 3.6 - 10.7 10*3/uL [place] Test Performed by [facility], [address] [place] [address] [place] Comp Panel with Mg Reflexon 10-25-2019 Calcium [Mass/Vol] 8.2 mg/dL Low 8.4-10.4 [facility] Comment on above: Performed By: #### Sky MARION, CRP2 #### [facility] [address] [place] [address] #### IGA #### [facility] [address] [place] [address] #### TTGA2, EMABO #### The performing lab is in the report. ALP [Catalytic activity/Vol] 106 U/L Normal 38-126 [facility] Comment on above: Performed By: #### Sky MARION, CRP2 #### [facility] [address] [place] [address] #### IGA #### [facility] [address] [place] [address] #### TTGA2, EMABO #### The performing lab is in the report. ALT [Catalytic activity/Vol] 19 U/L Normal 0-34 [facility] Comment on above: Result Comment: The ALT test is performed by an updated assay method. Please note that the reference intervals have been changed and are now sex specific. Performed By: #### Sky MARION, CRP2 #### [facility] [address] [place] [address] #### IGA #### [facility] [address] [place] [address] #### TTGA2, EMABO #### The performing lab is in the report. Anion gap [Moles/Vol] 9 Normal [facility] Comment on above: Performed By: #### E SR, CRP2 #### [facility] [address] [place] [address] #### IGA #### [facility] [address] [place] [address] #### TTGA2, EMABO #### The performing lab is in the report. AST [Catalytic activity/Vol] 28 U/L Normal 15-46 [facility] Comment on above: Performed By: #### E SR, CRP2 #### [facility] [place] [address] #### IGA #### [place] [address] [place] [address] #### TTGA2, EMABO #### The performing lab is in the report. Bilirubin [Mass/Vol] 0.9 mg/dL Normal 0.2-1.3 [facility] Comment on above: Performed By: #### E SR, CRP2 #### [facility] [place] [address] #### IGA #### [place] [address] [place] [address] #### TTGA2, EMABO #### The performing lab is in the report. CO2 [Moles/Vol] 32 mmol/L High 22-30 [facility] Comment on above: Performed By: #### E SR, CRP2 #### [facility] [place] [address] #### IGA #### [place] [address] [place] [address] #### TTGA2, EMABO #### The performing lab is in the report. Glucose [Mass/Vol] 168 mg/dL High 70-100 [facility] Comment on above: Performed By: #### E SR, CRP2 #### [facility] [address] [place] [address] #### IGA #### [place] [address] [place] [address] #### TTGA2, EMABO #### The performing lab is in the report. Protein [Mass/Vol] 6.2 g/dL Low 6.3-8.2 [facility] Comment on above: Performed By: #### E SR, CRP2 #### [facility] [address] [place] [address] #### IGA #### [facility] [address] [place] [address] #### TTGA2, EMABO #### The performing lab is in the report. Urea nitrogen [Mass/Vol] 11 mg/dL Normal 7-20 [facility] Comment on above: Performed By: #### E SR, CRP2 #### [facility] [address] [place] [address] #### IGA #### [facility] [address] [place] [address] #### TTGA2, EMABO #### The performing lab is in the report. Creatinine [Mass/Vol] 0.85 mg/dL Normal 0.52-1.25 [facility] Comment on above: Performed By: #### E SR, CRP2 #### [facility] [address] [facility] [place] [place] [address] #### IGA #### [facility] [address] [place] [address] #### TTGA2, EMABO #### The performing lab is in the report. GFR/1.73 sq M predicted among blacks MDRD (S/P/Bld) [Vol rate/Area] 87.6 mL/min/{1.73_m2} Normal >60 [facility] Comment on above: Performed By: #### E SR, CRP2 #### [facility] [address] [place] [address] #### IGA #### [facility] [address] [place] [address] #### TTGA2, EMABO #### The performing lab is in the report. GFR/1.73 sq M predicted among non-blacks MDRD (S/P/Bld) [Vol rate/Area] 75.6 mL/min/{1.73_m2} Normal >60 [facility] Comment on above: Result Comment: KDIG O guidelines provide the following GFR categories: Stage GFR(ml/min/1.73 m2) Terms G1 >=90 Normal or high G2 60-89 Mildly decreased* G3a 45-59 Mildly to moderately decreased G3b 30-44 Moderately to severely decreased G4 15-29 Severely decreased G5 <15 Kidney failure *Relative to young adult level. In the absence of evidence of kidney damage, neither GFR category G1 nor G2 fulfill the criteria for CKD. The CKD-EPI equation is validated in individuals 18 years of age and older. Currently the best equation for estimating glomerular filtration rate (GFR) from serum creatinine in children is the Bedside Vásquez equation. It is less accurate in patients with extremes of muscle mass, restriction of dietary protein, ingestion of creatine, extra-renal metabolism of creatinine, or treatment with medications that affect renal tubular creatinine secretion. Performed By: #### Sky MARION, CRP2 #### [facility] [address] [place] [address] #### IGA #### [facility] [address] [place] [address] #### TTGA2, EMABO #### The performing lab is in the report. Albumin [Mass/Vol] 3.6 g/dL Normal 3.5-5.0 [facility] Comment on above: Performed By: #### Sky MARION, CRP2 #### [facility] [address] [place] [address] #### IGA #### [facility] [address] [place] [address] #### TTGA2, EMABO #### The performing lab is in the report. Chloride [Moles/Vol] 95 mmol/L Low 98-107 [facility] Comment on above: Performed By: #### E SR, CRP2 #### [facility] [address] [place] [address] #### IGA #### [facility] [address] [place] [address] #### TTGA2, EMABO #### The performing lab is in the report. Potassium [Moles/Vol] 3.8 mmol/L Normal 3.5-5.1 [facility] Comment on above: Performed By: #### E SR, CRP2 #### [facility] [address] [place] [address] #### IGA #### [facility] [address] [place] [address] #### TTGA2, EMABO #### The performing lab is in the report. Sodium [Moles/Vol] 136 mmol/L Normal 135-145 [facility] Comment on above: Performed By: #### E SR, CRP2 #### [facility] [address] [place] [address] #### IGA #### [facility] [address] [place] [address] #### TTGA2, EMABO #### The performing lab is in the report. Comprehensive Metabolic Pane l w/ Reflex to MGon 10-25-2019 Albumin [Mass/Vol] 3.6 g/dL 3.5 - 5 g/dL [place], [place] ALP [Catalytic activity/Vol] 106 U/L 38 - 126 U/L [place], [place] ALT [Catalytic activity/Vol] 19 U/L 0 - 34 U/L [place] Comment on above: The ALT test is perf ormed by an updated assay method. Please note that the reference intervals have been changed and are now sex specific. Anion gap [Moles/Vol] 9 mmol/L [place], [place] AST [Catalytic activity/Vol] 28 U/L 15 - 46 U/L [place] Bilirubin Ql (U) 0.9 mg/dL 0.2 - 1.3 mg/dL [place] Calcium [Mass/Vol] 8.2 mg/dL Low 8.4 - 10. 4 mg/dL [place] Chloride [Moles/Vol] 95 mmol/L Low 98 - 10 7 mmol/L [place] CO2 [Moles/Vol] 32 mmol/L High 22 - 30 mmol/L [place] Creatinine [Mass/Vol] 0.85 mg/dL 0.52 - 1.25 mg/dL [place] EGFR IF NonAfrican Maltese 75.6 mL/min >60 [place] Comment on above: KDIGO guidelines pro vide the following GFR categories: Stage GFR(ml/min/1.73 m2) Terms G1 >=90 Normal or high G2 60-89 Mildly decreased* G3a 45-59 Mildly to moderately decreased G3b 30-44 Moderately to severely decreased G4 15-29 Severely decreased G5 <15 Kidney failure *Relative to young adult level. In the absence of evidence of kidney damage, neither GFR category G1 nor G2 fulfill the criteria for CKD. The CKD-EPI equation is validated in individuals 18 years of age and older. Currently the best equation for estimating glomerular filtration rate (GFR) from serum creatinine in children is the Bedside Vásquez equation. It is less accurate in patients with extremes of muscle mass, restriction of dietary protein, ingestion of creatine, extra-renal metabolism of creatinine, or treatment with medications that affect renal tubular creatinine secretion. GFR/1.73 sq M predicted among blacks MDRD (S/P/Bld) [Vol rate/Area] 87.6 mL/min/{1.73_m2} >60 [place] Glucose [Mass/Vol] 168 mg/dL High 70 - 100 mg/dL [place] Interpretation and review of laboratory results Abnormal [place] Potassium [Moles/Vol] 3.8 mmol/L 3.5 - 5.1 mmol/L [place] Protein [Mass/Vol] 6.2 g/dL Low 6.3 - 8.2 g/dL [place] Sodium [Moles/Vol] 136 mmol/L 135 - 145 mmol/L [place] Urea nitrogen [Mass/Vol] 11 mg/dL 7 - 20 mg/dL [place] Test Performed by [facility], [address] [place], [place] [address] [place] ECHO Complete 2D W Doppler W Coloron 10-25-2019 TRANSTHORACIC ECHOCARDIOGRAM PATIENT: Alfie Hogan STUDY DATE: 10/25/2019 : 1960 AGE: 58 HT/WT: 172.7 cm (68 116.1 kg in) (255.5 lb) GENDER: F BP: 111 / 72 LOCATION: [facility] PATIENT Inpatient [facility] STATUS: *ORDERING PHYSICIAN: * Randal Molina *READING PHYSICIAN: * Mau *WALLCOVERING TEXTURER: * Kiersten Oropeza DO, JOSE JUAN, [facility] Juan Carlos RDCS, AE INDICATIONS: Edema, Oulmonary Hypertension. CONCLUSIONS SUMMARY: 1. Technically difficult study. The right heart was not well seen. It did not appear significatly abnormal, but ASHLEY or Cardiac MRI may be better forassessment id clinically indicated. 2. Left ventricle: Systolic function is hyperdynamic by visual assessment. The estimated ejection fraction is 75%. There are no regional wall motion abnormalities. 3. Right ventricle: The cavity size is normal. Systolic function is normal. Right ventricular systolic pressure is within the normal range. 4. No significant valve disease. 5. Aorta: The aorta is normal. 6. Pericardium, extracardiac: There is no pericardial effusion. STUDY DATA: Complete transthoracic echocardiogram. Procedure: Image quality was poor. The study was technically limited due to body habitus and respiratory interference. Intravenous imaging enhancement (Definity) was administered to opacify the chamber. Definity lot #: [id number]. M-mode, complete 2D, complete spectral Doppler, and color flow Doppler images were acquired and archived for permanent storage and are available for subsequent review. Study status: Routine. Patient status: Inpatient. FINDINGS LEFT VENTRICLE: The cavity size is normal. Wall thickness is normal. Systolic function is hyperdynamic by visual assessment. The estimated ejection fraction is 75%. There are no regional wall motion abnormalities. Unable to assess LV diastolic function due to suboptimal technical data RIGHT VENTRICLE: The cavity size is normal. Systolic function is normal. Right ventricular systolic pressure is within the normal range. VENTRICULAR SEPTUM: There is no evidence of a ventricular septal defect. LEFT ATRIUM: The atrium is normal in size. RIGHT ATRIUM: The atrium is normal in size. ATRIAL SEPTUM: Color Doppler shows no shunt. MITRAL VALVE: Structurally normal valve. Doppler: There is no regurgitation. The peak diastolic gradient is 8 mm Hg. AORTIC VALVE: Structurally normal valve. Trileaflet. Doppler: There is no regurgitation. The peak systolic gradient is 10 mm Hg. The peak systolic velocity is 1.6 m/sec. TRICUSPID VALVE: Structurally normal valve. Doppler: There is trivial, less than 1+ regurgitation. PULMONIC VALVE: Structurally normal valve. Doppler: There is trivial, less than 1+ regurgitation. AORTA: The aorta is normal. PULMONARY ARTERY: Main pulmonary artery: Normal. PERICARDIUM: Prominent epicardial fat is present. There is no pericardial effusion. SYSTEMIC VEINS: Inferior vena cava: Not well visualized. Measurements Value Reference Aortic root ID 2.9 cm <4.4 Aortic root ID, STJ, ED 2.8 cm 2.0 - 3.2 Aortic root ID/bsa, STJ, ED 1.2 cm/m^2 1.1 - 1.9 Value Reference Ascending aorta ID, A-P, S 3.4 cm Ascending aorta ID/bsa, A-P, S 1.4 cm/m^2 Left ventricle Value Reference LV ID, ED 4.2 cm 3.8 - 5.2 LV ID, ES 2.7 cm 2.2 - 3.5 LV ID/bsa, ED (L) 1.7 cm/m^2 2.3 - 3.1 LV ID/bsa, ES (L) 1.1 cm/m^2 1.3 - 2.1 LV PW thickness, ED (H) 1.2 cm 0.6 - 0.9 LV PW/LV ID ratio, ED 0.3 LV wall mass (H) 179 g 66 - 150 LV wall mass/bsa 74 g/m^2 44 - 88 Stroke volume/bsa, 1-p A2C 32.2 ml/m^2 LV end-diastolic volume, 1-p A4C 115 ml 48 - 140 LV end-systolic volume, 1-p A4C 22 ml 12 - 60 LV end-diastolic volume, 2-p (H) 109 ml 46 - 106 LV end-systolic volume, 2-p 22 ml 14 - 42 LV ejection fraction, 2-p (H) 75 % 54 - 74 LV E/e', lateral 9.2 LV E/e', medial 7.7 LV E/e', average 8.4 Ventricular septum Value Reference IVS thickness, ED (H) 1.2 cm 0.6 - 0.9 LVOT Value Reference LVOT ID, A-P 2.0 cm LVOT mean velocity, S 0.7 m/sec LVOT peak gradient, S 4 mm Hg Stroke volume (SV), LVOT DP 70 ml Stroke index (SV/bsa), LVOT DP 29 ml/m^2 Aortic valve Value Reference Aortic valve peak velocity, S 1.6 m/sec Aortic peak gradient, S 10 mm Hg Left atrium Value Reference LA volume/bsa, ES, 2-p 19 ml/m^2 16 - 34 Mitral valve Value Reference Mitral E-wave peak velocity 1.4 m/sec Mitral A-wave peak velocity 0.3 m/sec Mitral deceleration time 125 ms Mitral peak gradient, D 8 mm Hg Mitral E/A ratio, peak 4.7 Tricuspid valve Value Reference Tricuspid regurg peak velocity 2.4 m/sec <=2.8 Tricuspid peak RV-RA gradient 22 mm Hg Right atrium Value Reference RA area, ES, A4C 13 cm^2 10 - 18 Right ventricle Value Reference RV ID, minor axis, ED, A4C base 3.6 cm 2.5 - 4.1 RV ID, minor axis, ED, A4C mid 3.2 cm 1.9 - 3.5 TAPSE, 2D 2.4 cm 1.7 - 3.1 RV s', lateral (H) 16.4 cm/sec 6.0 - 13.4 Legend: (L) and (H) ami values outside specified reference range. Electronically signed by Mau Oropeza DO, FSVM, FACC 10/25/2019 13:36 Prior Signatures: [place], [place] Obed, [facility] Incoming Cardiology Results From Elzbieta/Skyler - 10/25/2019 1:36 PM EDT TRANSTHORACIC ECHOCARDIOGRAM PATIENT: Alfie Hogan STUDY DATE: 10/25/2019 : 1960 AGE: 58 HT/WT: 172.7 cm (68 116.1 kg in) (255.5 lb) GENDER: F BP: 111 / 72 LOCATION: [facility] PATIENT Inpatient [facility] STATUS: *ORDERING PHYSICIAN: * Randal Molina *READING PHYSICIAN: * Mau *WALLCOVERING TEXTURER: * Kiesrten Pietrolungo, DO, FSVM, FACC [place] RDCS, AE INDICATIONS: Edema, Oulmonary Hypertension. CONCLUSIONS SUMMARY: 1. Technically difficult study. The right heart was not well seen. It did not appear significatly abnormal, but ASHLEY or Cardiac MRI may be better forassessment id clinically indicated. 2. Left ventricle: Systolic function is hyperdynamic by visual assessment. The estimated ejection fraction is 75%. There are no regional wall motion abnormalities. 3. Right ventricle: The cavity size is normal. Systolic function is normal. Right ventricular systolic pressure is within the normal range. 4. No significant valve disease. 5. Aorta: The aorta is normal. 6. Pericardium, extracardiac: There is no pericardial effusion. STUDY DATA: Complete transthoracic echocardiogram. Procedure: Image quality was poor. The study was technically limited due to body habitus and respiratory interference. Intravenous imaging enhancement (Definity) was administered to opacify the chamber. Definity lot #: [id number]. M-mode, complete 2D, complete spectral Doppler, and color flow Doppler images were acquired and archived for permanent storage and are available for subsequent review. Study status: Routine. Patient status: Inpatient. FINDINGS LEFT VENTRICLE: The cavity size is normal. Wall thickness is normal. Systolic function is hyperdynamic by visual assessment. The estimated ejection fraction is 75%. There are no regional wall motion abnormalities. Unable to assess LV diastolic function due to suboptimal technical data RIGHT VENTRICLE: The cavity size is normal. Systolic function is normal. Right ventricular systolic pressure is within the normal range. VENTRICULAR SEPTUM: There is no evidence of a ventricular septal defect. LEFT ATRIUM: The atrium is normal in size. RIGHT ATRIUM: The atrium is normal in size. ATRIAL SEPTUM: Color Doppler shows no shunt. MITRAL VALVE: Structurally normal valve. Doppler: There is no regurgitation. The peak diastolic gradient is 8 mm Hg. AORTIC VALVE: Structurally normal valve. Trileaflet. Doppler: There is no regurgitation. The peak systolic gradient is 10 mm Hg. The peak systolic velocity is 1.6 m/sec. TRICUSPID VALVE: Structurally normal valve. Doppler: There is trivial, less than 1+ regurgitation. PULMONIC VALVE: Structurally normal valve. Doppler: There is trivial, less than 1+ regurgitation. AORTA: The aorta is normal. PULMONARY ARTERY: Main pulmonary artery: Normal. PERICARDIUM: Prominent epicardial fat is present. There is no pericardial effusion. SYSTEMIC VEINS: Inferior vena cava: Not well visualized. Measurements Value Reference Aortic root ID 2.9 cm <4.4 Aortic root ID, STJ, ED 2.8 cm 2.0 - 3.2 Aortic root ID/bsa, STJ, ED 1.2 cm/m^2 1.1 - 1.9 Value Reference Ascending aorta ID, A-P, S 3.4 cm Ascending aorta ID/bsa, A-P, S 1.4 cm/m^2 Left ventricle Value Reference LV ID, ED 4.2 cm 3.8 - 5.2 LV ID, ES 2.7 cm 2.2 - 3.5 LV ID/bsa, ED (L) 1.7 cm/m^2 2.3 - 3.1 LV ID/bsa, ES (L) 1.1 cm/m^2 1.3 - 2.1 LV PW thickness, ED (H) 1.2 cm 0.6 - 0.9 LV PW/LV ID ratio, ED 0.3 LV wall mass (H) 179 g 66 - 150 LV wall mass/bsa 74 g/m^2 44 - 88 Stroke volume/bsa, 1-p A2C 32.2 ml/m^2 LV end-diastolic volume, 1-p A4C 115 ml 48 - 140 LV end-systolic volume, 1-p A4C 22 ml 12 - 60 LV end-diastolic volume, 2-p (H) 109 ml 46 - 106 LV end-systolic volume, 2-p 22 ml 14 - 42 LV ejection fraction, 2-p (H) 75 % 54 - 74 LV E/e', lateral 9.2 LV E/e', medial 7.7 LV E/e', average 8.4 Ventricular septum Value Reference IVS thickness, ED (H) 1.2 cm 0.6 - 0.9 LVOT Value Reference LVOT ID, A-P 2.0 cm LVOT mean velocity, S 0.7 m/sec LVOT peak gradient, S 4 mm Hg Stroke volume (SV), LVOT DP 70 ml Stroke index (SV/bsa), LVOT DP 29 ml/m^2 Aortic valve Value Reference Aortic valve peak velocity, S 1.6 m/sec Aortic peak gradient, S 10 mm Hg Left atrium Value Reference LA volume/bsa, ES, 2-p 19 ml/m^2 16 - 34 Mitral valve Value Reference Mitral E-wave peak velocity 1.4 m/sec Mitral A-wave peak velocity 0.3 m/sec Mitral deceleration time 125 ms Mitral peak gradient, D 8 mm Hg Mitral E/A ratio, peak 4.7 Tricuspid valve Value Reference Tricuspid regurg peak velocity 2.4 m/sec <=2.8 Tricuspid peak RV-RA gradient 22 mm Hg Right atrium Value Reference RA area, ES, A4C 13 cm^2 10 - 18 Right ventricle Value Reference RV ID, minor axis, ED, A4C base 3.6 cm 2.5 - 4.1 RV ID, minor axis, ED, A4C mid 3.2 cm 1.9 - 3.5 TAPSE, 2D 2.4 cm 1.7 - 3.1 RV s', lateral (H) 16.4 cm/sec 6.0 - 13.4 Legend: (L) and (H) ami values outside specified reference range. 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 Specialist: MARRY : 1960 Requested By: MAYCOL ARROYO Order Number: [id number] Demond MD: Bao Gupta Measurements Intervals [place] Rate: 115 P: 54 [place]: 148 QRS: 88 QRSD: 132 T: -17 QT: 344 QTc: 476 Interpretive Statements SINUS TACHYCARDIA RBBB AND LPFB No previous ECG available for comparison Electronically Signed On 10-25-2019 10:39:01 EDT by Bao Gupta [facility], [facility] Incoming Cardiology Results From Elzbieta/Carlosany - 10/25/2019 10:40 AM EDT [place] Test Date: 2019-10-24 Pat Name: Alfie Hogan Department: 01 Room: 457 Gender: F Loss Prevention Specialist: MARRY : 1960 Requested By: MAYCOL ARROYO Order Number: [id number] Demond MD: Bao Gupta Measurements Intervals [place] Rate: 115 P: 54 [place]: 148 QRS: 88 QRSD: 132 T: -17 QT: 344 QTc: 476 Interpretive Statements SINUS TACHYCARDIA RBBB AND LPFB No previous ECG available for comparison Electronically Signed On 10-25-2019 10:39:01 EDT by Bao Gupta [facility]- [place], [place] Echo Complete w/wo Contrasto n 10-25-2019 Echo Complete w/wo Contrast Patient Name: ALFIE HOGAN Ultrasound Exam Date/Time 10/25/2019 09:51:29 EDT Exam Echo Complete w/wo Contrast Ordering Physician MD KECIA, RANDAL Accession Number [id number] Reason For Exam LE edema , pulmonary HTN Report TRANSTHORACIC ECHOCARDIOGRAM PATIENT: Alfie Hogan STUDY DATE: 10/25/2019 : 1960 AGE: 58 HT/WT: 172.7 cm (68 116.1 kg in) (255.5 lb) GENDER: F BP: 111 / 72 LOCATION: [facility] PATIENT Inpatient [facility] STATUS: *ORDERING PHYSICIAN: * Randal Molina *READING PHYSICIAN: Alycia León *WALLCOVERING TEXTURER: * Kiersten Oropeza DO, FS, [facility] Juan Carlos [facility], [place] INDICATIONS: Edema, Oulmonary Hypertension. CONCLUSIONS SUMMARY: 1. Technically difficult study. The right heart was not well seen. It did not appear significatly abnormal, but ASHLEY or Cardiac MRI may be better forassessment id clinically indicated. 2. Left ventricle: Systolic function is hyperdynamic by visual assessment. The estimated ejection fraction is 75%. There are no regional wall motion abnormalities. 3. Right ventricle: The cavity size is normal. Systolic function is normal. Right ventricular systolic pressure is within the normal range. 4. No significant valve disease. 5. Aorta: The aorta is normal. 6. Pericardium, extracardiac: There is no pericardial effusion. STUDY DATA: Complete transthoracic echocardiogram. Procedure: Image quality was poor. The study was technically limited due to body habitus and respiratory interference. Intravenous imaging enhancement (Definity) was administered to opacify the chamber. Definity lot #: [id number]. M-mode, complete 2D, complete spectral Doppler, and color flow Doppler images were acquired and archived for permanent storage and are available for subsequent review. Study status: Routine. Patient status: Inpatient. FINDINGS LEFT VENTRICLE: The cavity size is normal. Wall thickness is normal. Systolic function is hyperdynamic by visual assessment. The estimated ejection fraction is 75%. There are no regional wall motion abnormalities. Unable to assess LV diastolic function due to suboptimal technical data RIGHT VENTRICLE: The cavity size is normal. Systolic function is normal. Right ventricular systolic pressure is within the normal range. VENTRICULAR SEPTUM: There is no evidence of a ventricular septal defect. LEFT ATRIUM: The atrium is normal in size. RIGHT ATRIUM: The atrium is normal in size. ATRIAL SEPTUM: Color Doppler shows no shunt. MITRAL VALVE: Structurally normal valve. Doppler: There is no regurgitation. The peak diastolic gradient is 8 mm Hg. AORTIC VALVE: Structurally normal valve. Trileaflet. Doppler: There is no regurgitation. The peak systolic gradient is 10 mm Hg. The peak systolic velocity is 1.6 m/sec. TRICUSPID VALVE: Structurally normal valve. Doppler: There is trivial, less than 1+ regurgitation. PULMONIC VALVE: Structurally normal valve. Doppler: There is trivial, less than 1+ regurgitation. AORTA: The aorta is normal. PULMONARY ARTERY: Main pulmonary artery: Normal. PERICARDIUM: Prominent epicardial fat is present. There is no pericardial effusion. SYSTEMIC VEINS: Inferior vena cava: Not well visualized. Measurements Value Reference Aortic root ID 2.9 cm <4.4 Aortic root ID, STJ, ED 2.8 cm 2.0 - 3.2 Aortic root ID/bsa, STJ, ED 1.2 cm/m^2 1.1 - 1.9 Value Reference Ascending aorta ID, A-P, S 3.4 cm Ascending aorta ID/bsa, A-P, S 1.4 cm/m^2 Left ventricle Value Reference LV ID, ED 4.2 cm 3.8 - 5.2 LV ID, ES 2.7 cm 2.2 - 3.5 LV ID/bsa, ED (L) 1.7 cm/m^2 2.3 - 3.1 LV ID/bsa, ES (L) 1.1 cm/m^2 1.3 - 2.1 LV PW thickness, ED (H) 1.2 cm 0.6 - 0.9 LV PW/LV ID ratio, ED 0.3 LV wall mass (H) 179 g 66 - 150 LV wall mass/bsa 74 g/m^2 44 - 88 Stroke volume/bsa, 1-p A2C 32.2 ml/m^2 LV end-diastolic volume, 1-p A4C 115 ml 48 - 140 LV end-systolic volume, 1-p A4C 22 ml 12 - 60 LV end-diastolic volume, 2-p (H) 109 ml 46 - 106 LV end-systolic volume, 2-p 22 ml 14 - 42 LV ejection fraction, 2-p (H) 75 % 54 - 74 LV E/e', lateral 9.2 LV E/e', medial 7.7 LV E/e', average 8.4 Ventricular septum Value Reference IVS thickness, ED (H) 1.2 cm 0.6 - 0.9 LVOT Value Reference LVOT ID, A-P 2.0 cm LVOT mean velocity, S 0.7 m/sec LVOT peak gradient, S 4 mm Hg Stroke volume (SV), LVOT DP 70 ml Stroke index (SV/bsa), LVOT DP 29 ml/m^2 Aortic valve Value Reference Aortic valve peak velocity, S 1.6 m/sec Aortic peak gradient, S 10 mm Hg Left atrium Value Reference LA volume/bsa, ES, 2-p 19 ml/m^2 16 - 34 Mitral valve Value Reference Mitral E-wave peak velocity 1.4 m/sec Mitral A-wave peak velocity 0.3 m/sec Mitral deceleration time 125 ms Mitral peak gradient, D 8 mm Hg Mitral E/A ratio, peak 4.7 Tricuspid valve Value Reference Tricuspid regurg peak velocity 2.4 m/sec <=2.8 Tricuspid peak RV-RA gradient 22 mm Hg Right atrium Value Reference RA area, ES, A4C 13 cm^2 10 - 18 Right ventricle Value Reference RV ID, minor axis, ED, A4C base 3.6 cm 2.5 - 4.1 RV ID, minor axis, ED, A4C mid 3.2 cm 1.9 - 3.5 TAPSE, 2D 2.4 cm 1.7 - 3.1 RV s', lateral (H) 16.4 cm/sec 6.0 - 13.4 Legend: (L) and (H) ami values outside specified reference range. Electronically signed by Mau Oropeza DO, EMILIA, [facility] 10/25/2019 13:36 Prior Signatures: Final Dictated: 10/25/2019 1:36 pm Dictating Physician: DO OROPEZA JOSEPH Signed Date and Time: 10/25/2019 1:36 pm Signed by: DO OROPEZA JOSEPH Normal [facility] Gram Stainon 10-25-2019 INR Coag (Bld) [Relative time] Moderate polymorphonuclear cells/lpf. Moderate epithelial cells/lpf. Rare gram positive cocci. Rare gram positive bacilli. [place], [place] Test Performed by [address] [id number] Specimen Source Comment:Sputum Expectorated [place], [place] Hemogram w/ Autodiffon 10-24 Erythrocyte distribution width (RBC) [Ratio] 17.7 % High 11.5-14.5 [facility] Comment on above: Performed By: #### E SR, CRP2 #### [facility] [address] [place] [address] #### IGA #### [facility] [address] [place] [address] #### TTGA2, EMABO #### The performing lab is in the report. Hematocrit (Bld) [Volume fraction] 31.8 % Low 35.0-47.0 [facility] Comment on above: Performed By: #### E SR, CRP2 #### [facility] [address] [place] [address] #### IGA #### [facility] [address] [place] [address] #### TTGA2, EMABO #### The performing lab is in the report. Hemoglobin (Bld) [Mass/Vol] 10.4 g/dL Low 11.7-16.0 [facility] Comment on above: Performed By: #### E SR, CRP2 #### [facility] [address] [place] [address] #### IGA #### [facility] [address] [place] [address] #### TTGA2, EMABO #### The performing lab is in the report. MCH (RBC) [Entitic mass] 31.0 pg Normal 26.0-34.0 [facility] Comment on above: Performed By: #### E SR, CRP2 #### [facility] [address] [place] [address] #### IGA #### [facility] [address] [place] [address] #### TTGA2, EMABO #### The performing lab is in the report. MCHC (RBC) [Mass/Vol] 32.8 % Normal 32.0-36.0 [facility] Comment on above: Performed By: #### E SR, CRP2 #### [facility] [address] [place] [address] #### IGA #### [facility] [address] [place] [address] #### TTGA2, EMABO #### The performing lab is in the report. MCV (RBC) [Entitic vol] 94.6 fL Normal 79.0-98.0 [facility] Comment on above: Performed By: #### E SR, CRP2 #### [facility] [place] [address] #### IGA #### [facility] [address] [place] [address] #### TTGA2, EMABO #### The performing lab is in the report. Platelet mean volume (Bld) [Entitic vol] 7.6 fL Normal 7.4-10.4 [facility] Comment on above: Performed By: #### E SR, CRP2 #### [facility] [address] [place] [address] #### IGA #### [facility] [address] [place] [address] #### TTGA2, EMABO #### The performing lab is in the report. Platelets (Bld) [#/Vol] 182 10*3/uL Normal 140-440 [facility] Comment on above: Performed By: #### E SR, CRP2 #### [facility] [address] [place] [address] #### IGA #### [facility] [address] [place] [address] #### TTGA2, EMABO #### The performing lab is in the report. RBC (Bld) [#/Vol] 3.36 10*6/uL Low 3.80-5.20 [facility] Comment on above: Performed By: #### E SR, CRP2 #### [facility] [address] [facility] [place] [address] #### IGA #### [place] [address] [place] [address] #### TTGA2, EMABO #### The performing lab is in the report. WBC (Bld) [#/Vol] 2.7 10*3/uL Low 3.6-10.7 [facility] Comment on above: Performed By: #### E SR, CRP2 #### [facility] [address] [place] [address] #### IGA #### [facility] [address] [place] [address] #### TTGA2, EMABO #### The performing lab is in the report. LEGIONELLA AG, URINEon 10-24 LEGIONELLA AG, URINE LEGIONELLA AG, URIN E --> Status: F Legionella antigen NOT DETECTED. Normal [facility] Comment on above: Order Comment: Speci men Source Comment:Urine, clean catch Performed By: #### E SR, CRP2 #### [facility] [address] [place] [address] #### IGA #### [facility] [address] [place] [address] #### TTGA2, EMABO #### The performing lab is in the report. Legionella antigen, urineon 10-25-2019 LEGIONELLA ANTIGEN Legionella antigen N OT DETECTED. [facility] [place], [place] Manual Diffon 10-25-2019 Abs Lymph Cnt 0.6 10*3/uL Low 1.1-4.5 [facility] Comment on above: Performed By: #### E SR, CRP2 #### [facility] [address] [place] [address] #### IGA #### [facility] [address] [place] [address] #### TTGA2, EMABO #### The performing lab is in the report. Abs Monocyte Cnt 0.0 10*3/uL Low 0.2-1.1 [facility] Comment on above: Performed By: #### E SR, CRP2 #### [address] [place] [address] #### IGA #### [place] [address] [place] [address] #### TTGA2, EMABO #### The performing lab is in the report. Abs Neutrophile Cnt 2.1 10*3/uL Low 2.2-8.2 [facility] Comment on above: Performed By: #### E SR, CRP2 #### [facility] [place] [address] #### IGA #### [facility] [address] [place] [address] #### TTGA2, EMABO #### The performing lab is in the report. Anisocytosis Ql (Bld) Slight Normal [facility] Comment on above: Performed By: #### E SR, CRP2 #### [facility] [address] [place] [address] #### IGA #### [facility] [address] [place] [address] #### TTGA2, EMABO #### The performing lab is in the report. Lymphocytes 22 % Normal 20-40 [facility] Comment on above: Performed By: #### E SR, CRP2 #### [facility] [address] [place] [address] #### IGA #### [facility] [address] [place] [address] #### TTGA2, EMABO #### The performing lab is in the report. Monocytes 1 % Low 2-10 [facility] Comment on above: Performed By: #### E SR, CRP2 #### [facility] [address] [place] [address] #### IGA #### [facility] [address] [place] [address] #### TTGA2, EMABO #### The performing lab is in the report. Ovalocytes Slight Normal [facility] Comment on above: Performed By: #### E SR, CRP2 #### [facility] [address] [place] [place] [address] #### IGA #### [facility] [address] [place] [address] #### TTGA2, EMABO #### The performing lab is in the report. Poikilocytosis Slight Normal [facility] Comment on above: Performed By: #### E SR, CRP2 #### [facility] [place] [address] #### IGA #### [facility] [address] [address] #### TTGA2, EMABO #### The performing lab is in the report. Polychromasia Slight Normal [facility] Comment on above: Performed By: #### E SR, CRP2 #### [facility] [address] [place] [place] [address] #### IGA #### [facility] [address] [place] [place] [address] #### TTGA2, EMABO #### The performing lab is in the report. RBC morphology finding Nom (Bld) ABNORMAL Normal [facility] Comment on above: Performed By: #### E SR, CRP2 #### [facility] [address] [place] [address] #### IGA #### [facility] [address] [place] [address] #### TTGA2, EMABO #### The performing lab is in the report. Seg Neutrophils 77 % Normal 40-80 [facility] Comment on above: Performed By: #### E SR, CRP2 #### [facility] [address] [place] [address] #### IGA #### [facility] [address] [place] [address] #### TTGA2, EMABO #### The performing lab is in the report. Stomatocytes Slight Normal [facility] Comment on above: Performed By: #### E SR, CRP2 #### [place] [address] #### IGA #### [facility] [address] [place] [address] #### TTGA2, EMABO #### The performing lab is in the report. Tear Drop Forms Slight Normal [facility] Comment on above: Performed By: #### E SR, CRP2 #### [place] [address] #### IGA #### [facility] [address] [place] [address] #### TTGA2, EMABO #### The performing lab is in the report. Abs Baso Cnt 0.0 10*3/uL Normal 0.0-0.2 [facility] Comment on above: Performed By: #### E SR, CRP2 #### [place] [address] #### IGA #### [facility] [address] [place] [address] #### TTGA2, EMABO #### The performing lab is in the report. Abs Eosin Cnt 0.0 10*3/uL Normal 0.0-0.5 [facility] Comment on above: Performed By: #### E SR, CRP2 #### [facility] [place] [address] #### IGA #### [facility] [address] [place] [address] #### TTGA2, EMABO #### The performing lab is in the report. Bands 0 % Normal 0-3 [facility] Comment on above: Performed By: #### E SR, CRP2 #### [facility] [address] [place] [address] #### IGA #### [facility] [address] [place] [address] #### TTGA2, EMABO #### The performing lab is in the report. Basophils 0 % Normal 0-2 [facility] Comment on above: Performed By: #### E SR, CRP2 #### [facility] [address] [place] [address] #### IGA #### [facility] [address] [place] [address] #### TTGA2, EMABO #### The performing lab is in the report. Cells counted 100 Normal [facility] Comment on above: Performed By: #### E SR, CRP2 #### [facility] [address] [place] [address] #### IGA #### [facility] [address] [place] [address] #### TTGA2, EMABO #### The performing lab is in the report. Eosinophils 0 % Low 1-6 [facility] Comment on above: Performed By: #### E SR, CRP2 #### [facility] [address] [place] [address] #### IGA #### [facility] [address] [place] [address] #### TTGA2, EMABO #### The performing lab is in the report. Manual Differentialon 2019 Absolute Baso # 0.0 10*3/uL 0 - 0.2 10*3/uL [place] Absolute Eos # 0.0 10*3/uL 0 - 0.5 10*3/uL [place] Absolute Lymph # 0.6 10*3/uL Low 1.1 - 4.5 10*3/uL [facility] Absolute [place] # 0.0 10*3/uL Low 0.2 - 1.1 10*3/uL [facility] Absolute Neut # 2.1 10*3/uL Low 2.2 - 8.2 10*3/uL [facility] Anisocytosis Ql (Bld) Slight [facility] Bands 0 % 0 - 3 % [facility] Basophils 0 % 0 - 2 % [facility] Eosinophils 0 % Low 1 - 6 % [facility] Interpretation and review of laboratory results Abnormal [facility] [place] Lymphocytes 22 % 20 - 40 % [facility] Monocytes 1 % Low 2 - 10 % [facility] Ovalocytes Slight [facility] Poikilocytes Slight [facility] Polychromasia Slight [facility] RBC morphology finding Nom (Bld) ABNORMAL [facility] Seg Neutrophils 77 % 40 - 80 % [facility] Stomatocytes Slight [facility] [place] Tear Drop Cells Slight [facility] TOTAL CELLS COUNTED 100 [facility], [place] Test Performed by [facility], [address], [place], [place] [address] [facility], [place] Otheron 10-25-2019 Test Performed by [facility], [address] [place] [id number] Specimen Source Comment:Urine, clean catch [facility], [place] Procalcitoninon 10-25-2019 Procalcitonin 0.58 ng/mL Abnormal <0.10 [facility] Comment on above: Performed By: #### E SR, CRP2 #### [facility] [address] [place] [address] #### IGA #### [facility] [address] [place] [address] #### TTGA2, EMABO #### The performing lab is in the report. Interpretation and review of laboratory results Abnormal [facility], [place] Procalcitonin 0.58 ng/mL Abnormal <0.10 [facility], [place] Sodium [Moles/Vol] See Below [place] Comment on above: PCT <0.50 = Low risk of severe sepsis and/or septic shock. PCT >2.00 = High risk of severe sepsis and/or septic shock. Test Performed by [facility], [address] [place] [address], [place] [address] [place], [place] RESPIRATORY PCR PANELon 10-03 RESPIRATORY PCR PANEL RESPIRATORY PCR PA STANISLAV --> Status: F NEGATIVE: No targets were detected by the [employer] Upper Respiratory Pathogens PCR Panel. PLEASE NOTE: This assay DOES NOT detect SARS-CoV-2/COVID-19. _ The [employer] Upper Respiratory Pathogens PCR Panel can detect the following targets: Adenovirus, Coronavirus 229E, Coronavirus HKU1, Coronavirus NL63, Coronavirus OC43, Human Metapneumovirus, Human Rhinovirus/Enterovirus, Influenza A, Influenza B, Parainfluenza Virus 1, Parainfluenza Virus 2, Parainfluenza Virus 3, Parainfluenza Virus 4, Respiratory Syncytial Virus, Bordetella pertussis, Bordetella parapertussis, Chlamydia pneumoniae, Mycoplasma pneumoniae Respiratory Pathogens PCR Panel. PLEASE NOTE: This assay DOES NOT detect SARS-CoV-2/COVID-19. _ The [employer] Upper Respiratory Pathogens PCR Panel can detect the following targets: Adenovirus, Coronavirus 229E, Coronavirus HKU1, Coronavirus NL63, Coronavirus OC43, Human Metapneumovirus, Human Rhinovirus/Enterovirus, Influenza A, Influenza B, Parainfluenza Virus 1, Parainfluenza Virus 2, Parainfluenza Virus 3, Parainfluenza Virus 4, Respiratory Syncytial Virus, Bordetella pertussis, Bordetella parapertussis, Chlamydia pneumoniae, Mycoplasma pneumoniae Normal [facility] Comment on above: Order Comment: Speci men Source Comment:Nasopharyngeal Performed By: #### E SR, CRP2 #### [facility] [address] [place] [address] #### IGA #### [facility] [address] [place] [address] #### TTGA2, EMABO #### The performing lab is in the report. Respiratory Virus PCR Panelo n 10-25-2019 Respiratory Panel PCR NEGATIVE: No targe ts were detected by the [employer] Upper Respiratory Pathogens PCR Panel. PLEASE NOTE: This assay DOES NOT detect SARS-CoV-2/COVID-19. _ The [employer] Upper Respiratory Pathogens PCR Panel can detect the following targets: Adenovirus, Coronavirus 229E, Coronavirus HKU1, Coronavirus NL63, Coronavirus OC43, Human Metapneumovirus, Human Rhinovirus/Enterovirus, Influenza A, Influenza B, Parainfluenza Virus 1, Parainfluenza Virus 2, Parainfluenza Virus 3, Parainfluenza Virus 4, Respiratory Syncytial Virus, Bordetella pertussis, Bordetella parapertussis, Chlamydia pneumoniae, Mycoplasma pneumoniae [place], [place] Test Performed by [address] [address] Specimen Source Comment:Nasopharyngeal [place], [place] STREP PNEUMO ANTIGEN, URINEo n 10-25-2019 STREP PNEUMO ANTIGEN, URINE STREP PNEUMO ANTIGEN, URINE --> Status: F Strep pneumo antigen NOT DETECTED. Normal [facility] Comment on above: Order Comment: Speci men Source Comment:Urine, clean catch Performed By: #### E SR, CRP2 #### [facility] [address] [place] [address] #### IGA #### [facility] [address] [place] [address] #### TTGA2, EMABO #### The performing lab is in the report. Strep Pneumoniae Antigenon 0 10-25-2019 STREP PNEUMONIAE ANTIGEN, URINE Strep pneumo antigen NOT DETECTED. [place], [place] Troponin Ion 10-25-2019 Troponin I.cardiac [Mass/Vol] ng/mL Normal 0.000-0.034 [facility] Comment on above: Result Comment: . Performed By: #### E SR, CRP2 #### [facility] [address] [facility] [place] [address] #### IGA #### [facility] [address] [place] [address] #### TTGA2, EMABO #### The performing lab is in the report. VL LOWER EXTREMITY BILATERAL VENOUS DUPLEXon 10-25-2019 [facility], [facility] Incoming Cardiology Results From [facility] - 10/25/2019 11:54 AM EDT [facility] Lower Extremity Venous Duplex Report Ordering Physician: Randal Molina Director Of Agriculture: Bea Paiz Interpreting Physician: Antonio Parker MD Location: [facility] Indications: Bilateral lower leg edema, elevated D Dimer. Conclusions 1. There is no evidence of acute deep or superficial venous thrombosis noted in the right lower extremity. 2. There is no evidence of acute deep or superficial venous thrombosis noted in the left lower extremity. History: Risk factors: Obese. Hypercoagulable state. Immobility. Study data: Complete lower extremity venous duplex evaluation. Grayscale 2D imaging, color Doppler imaging, and spectral Doppler analysis. Location: Bedside. Objective: Diagnostic evaluation. Procedure: A vascular evaluation was performed with the patient in the supine position. Images were obtained using a LookUP E9 vascular ultrasound machine. Venous flow and imaging: + --+-------+ + +Location +Overall+Properties + + --+-------+ + +R CFV +Patent +Normal phasicity; spontaneous; + + + +normal augmentation; compressible + + --+-------+ + +R saphenofemoral junction+Patent +Compressible + + --+-------+ + +R profunda femoral +Patent +Normal phasicity; spontaneous; + + + +normal augmentation + + --+-------+ + +R FV - prox. +Patent +Compressible + + --+-------+ + +R FV - mid +Patent +Normal phasicity; spontaneous; + + + +normal augmentation; compressible + + --+-------+ + +R FV - distal +Patent +Compressible + + --+-------+ + +R popliteal +Patent +Normal phasicity; spontaneous; + + + +normal augmentation; compressible + + --+-------+ + +R gastrocnemius +Patent +Compressible + + --+-------+ + +R PTV +Patent +Compressible + + --+-------+ + +R peroneal +Patent +Compressible + + --+-------+ + +R soleal +Patent +Compressible + + --+-------+ + +R GSV +Patent +Compressible + + --+-------+ + +L CFV +Patent +Normal phasicity; spontaneous; + + + +normal augmentation; compressible + + --+-------+ + +L saphenofemoral junction+Patent +Compressible + + --+-------+ + +L profunda femoral +Patent +Normal phasicity; spontaneous; + + + +normal augmentation + + --+-------+ + +L FV - prox. +Patent +Compressible + + --+-------+ + +L FV - mid +Patent +Normal phasicity; spontaneous; + + + +normal augmentation; compressible + + --+-------+ + +L FV - distal +Patent +Compressible + + --+-------+ + +L popliteal +Patent +Normal phasicity; spontaneous; + + + +normal augmentation; compressible + + --+-------+ + +L gastrocnemius +Patent +Compressible + + --+-------+ + +L PTV +Patent +Compressible + + --+-------+ + +L peroneal +Patent +Compressible + + --+-------+ + +L soleal +Patent +Compressible + + --+-------+ + +L GSV +Patent +Compressible + + --+-------+ + Prepared and electronically signed by Antonio Parker MD 10/25/2019 11:53 [facility] [place], [facility] Lower Extremity Venous Duplex Report Ordering Physician: Randal Molina Director Of Agriculture: Bea Paiz Interpreting Physician: Antonio Parker MD Location: [facility] Indications: Bilateral lower leg edema, elevated D Dimer. Conclusions 1. There is no evidence of acute deep or superficial venous thrombosis noted in the right lower extremity. 2. There is no evidence of acute deep or superficial venous thrombosis noted in the left lower extremity. History: Risk factors: Obese. Hypercoagulable state. Immobility. Study data: Complete lower extremity venous duplex evaluation. Grayscale 2D imaging, color Doppler imaging, and spectral Doppler analysis. Location: Bedside. Objective: Diagnostic evaluation. Procedure: A vascular evaluation was performed with the patient in the supine position. Images were obtained using a LookUP E9 vascular ultrasound machine. Venous flow and imaging: + --+-------+ + +Location +Overall+Properties + + --+-------+ + +R CFV +Patent +Normal phasicity; spontaneous; + + + +normal augmentation; compressible + + --+-------+ + +R saphenofemoral junction+Patent +Compressible + + --+-------+ + +R profunda femoral +Patent +Normal phasicity; spontaneous; + + + +normal augmentation + + --+-------+ + +R FV - prox. +Patent +Compressible + + --+-------+ + +R FV - mid +Patent +Normal phasicity; spontaneous; + + + +normal augmentation; compressible + + --+-------+ + +R FV - distal +Patent +Compressible + + --+-------+ + +R popliteal +Patent +Normal phasicity; spontaneous; + + + +normal augmentation; compressible + + --+-------+ + +R gastrocnemius +Patent +Compressible + + --+-------+ + +R PTV +Patent +Compressible + + --+-------+ + +R peroneal +Patent +Compressible + + --+-------+ + +R soleal +Patent +Compressible + + --+-------+ + +R GSV +Patent +Compressible + + --+-------+ + +L CFV +Patent +Normal phasicity; spontaneous; + + + +normal augmentation; compressible + + --+-------+ + +L saphenofemoral junction+Patent +Compressible + + --+-------+ + +L profunda femoral +Patent +Normal phasicity; spontaneous; + + + +normal augmentation + + --+-------+ + +L FV - prox. +Patent +Compressible + + --+-------+ + +L FV - mid +Patent +Normal phasicity; spontaneous; + + + +normal augmentation; compressible + + --+-------+ + +L FV - distal +Patent +Compressible + + --+-------+ + +L popliteal +Patent +Normal phasicity; spontaneous; + + + +normal augmentation; compressible + + --+-------+ + +L gastrocnemius +Patent +Compressible + + --+-------+ + +L PTV +Patent +Compressible + + --+-------+ + +L peroneal +Patent +Compressible + + --+-------+ + +L soleal +Patent +Compressible + + --+-------+ + +L GSV +Patent +Compressible + + --+-------+ + Prepared and electronically signed by Antonio Parker MD 10/25/2019 11:53 [place], [place] VL Venous Duplex US Lower Ex t Bilateralon 10-25-2019 VL Venous Duplex US Lower Ext Bilateral Patient Name: ALFIE HOGAN Ultrasound Exam Date/Time 10/25/2019 12:01:29 EDT Exam VL Venous Duplex US Lower Ext Bilateral Ordering Physician MD KECIA, [facility] Accession Number [id number] CPT4 Codes 31580 () Reason For Exam LE edema, elevated d dimer Report [facility] Lower Extremity Venous Duplex Report Patient Samira, : 1960 Study 10/25/2019 Name: Alfie Calvillo (58yrs) Date: Patient [id number] Age: 58 Account: [id number] ID: Gender: F Loc: 222 BP: Ordering Physician: Randal Molina Director Of Agriculture: Bea Paiz Interpreting Physician: Antonio Parker MD Location: [facility] Indications: Bilateral lower leg edema, elevated D Dimer. Conclusions 1. There is no evidence of acute deep or superficial venous thrombosis noted in the right lower extremity. 2. There is no evidence of acute deep or superficial venous thrombosis noted in the left lower extremity. History: Risk factors: Obese. Hypercoagulable state. Immobility. Study data: Complete lower extremity venous duplex evaluation. Grayscale 2D imaging, color Doppler imaging, and spectral Doppler analysis. Location: Bedside. Objective: Diagnostic evaluation. Procedure: A vascular evaluation was performed with the patient in the supine position. Images were obtained using a LookUP E9 vascular ultrasound machine. Venous flow and imaging: + --+-------+ + +Location +Overall+Properties + + --+-------+ + +R CFV +Patent +Normal phasicity; spontaneous; + + + +normal augmentation; compressible + + --+-------+ + +R saphenofemoral junction+Patent +Compressible + + --+-------+ + +R profunda femoral +Patent +Normal phasicity; spontaneous; + + + +normal augmentation + + --+-------+ + +R FV - prox. +Patent +Compressible + + --+-------+ + +R FV - mid +Patent +Normal phasicity; spontaneous; + + + +normal augmentation; compressible + + --+-------+ + +R FV - distal +Patent +Compressible + + --+-------+ + +R popliteal +Patent +Normal phasicity; spontaneous; + + + +normal augmentation; compressible + + --+-------+ + +R gastrocnemius +Patent +Compressible + + --+-------+ + +R PTV +Patent +Compressible + + --+-------+ + +R peroneal +Patent +Compressible + + --+-------+ + +R soleal +Patent +Compressible + + --+-------+ + +R GSV +Patent +Compressible + + --+-------+ + +L CFV +Patent +Normal phasicity; spontaneous; + + + +normal augmentation; compressible + + --+-------+ + +L saphenofemoral junction+Patent +Compressible + + --+-------+ + +L profunda femoral +Patent +Normal phasicity; spontaneous; + + + +normal augmentation + + --+-------+ + +L FV - prox. +Patent +Compressible + + --+-------+ + +L FV - mid +Patent +Normal phasicity; spontaneous; + + + +normal augmentation; compressible + + --+-------+ + +L FV - distal +Patent +Compressible + + --+-------+ + +L popliteal +Patent +Normal phasicity; spontaneous; + + + +normal augmentation; compressible + + --+-------+ + +L gastrocnemius +Patent +Compressible + + --+-------+ + +L PTV +Patent +Compressible + + --+-------+ + +L peroneal +Patent +Compressible + + --+-------+ + +L soleal +Patent +Compressible + + --+-------+ + +L GSV +Patent +Compressible + + --+-------+ + Prepared and electronically signed by Antonio Parker MD 10/25/2019 11:53 [facility], [address] [place] [address] , [address] [address] , Final Dictated: 10/31/2019 9:53 am Dictating Physician: ANTONIO PARKER Signed Date and Time: 10/25/2019 11:53 am Signed by: ANTONIO PARKER [facility] Brain Natriuretic Peptideon 10-24-2019 Natriuretic peptide B (Bld) [Mass/Vol] 109 pg/mL 0 - 125 pg/mL [place], [place] CBC Auto Differentialon 05-2 Absolute Baso # 0.0 10*3/uL 0 - 0.2 10*3/uL [place] Absolute Neut # 1.9 10*3/uL 1.8 - 7 10*3/uL [place] Basophils/100 WBC (Bld) 0.7 % 0 - 2 % [place] Eosinophils (Bld) [#/Vol] 0.1 10*3/uL 0 - 0.5 10*3/uL [place] Eosinophils/100 WBC (Bld) 1.2 % 1 - 6 % [place] Erythrocyte distribution width (RBC) [Ratio] 17.8 % High 11.5 - 14.5 % [place] Granulocytes/100 WBC (Bld) 39.1 % Low 40 - 80 % [place] Hematocrit (Bld) [Volume fraction] 31.3 % Low 35 - 47 % [place] Hemoglobin (Bld) [Mass/Vol] 10.1 g/dL Low 11.7 - 16 g/dL [place] Interpretation and review of laboratory results Abnormal [place] Lymphocytes (Bld) [#/Vol] 2.6 10*3/uL 1 - 4.3 10*3/uL [place] Lymphocytes/100 WBC (Bld) 53.3 % High 20 - 40 % [place] MCH (RBC) [Entitic mass] 30.9 pg 26 - 34 pg [place] MCHC (RBC) [Mass/Vol] 32.4 % 32 - 36 % [place] MCV (RBC) [Entitic vol] 95.4 fL 79 - 98 fL [place], [place] Monocytes (Bld) [#/Vol] 0.3 10*3/uL 0 - 0.8 10*3/uL [place] Monocytes/100 WBC (Bld) 5.7 % 2 - 10 % [place] Platelet mean volume (Bld) [Entitic vol] 8.0 fL 7.4 - 10.4 fL [place] Platelets (Bld) [#/Vol] 193 10*3/uL 140 - 440 10*3/uL [place] RBC (Bld) [#/Vol] 3.28 10*6/uL Low 3.8 - 5.2 10*6/uL [facility] [place] WBC (Bld) [#/Vol] 4.9 10*3/uL 3.6 - 10.7 10*3/uL [facility] [place] Test Performed by [facility], [address], [place] [address] [facility] [place] COVID-19on 10-24-2019 SARS-CoV-2 Not Detected Expected Result: Not Detected _ Real-time, RT-PCR performed on the [employer] TORCH by the [facility]. Negative results do not preclude SARS-CoV-2 infection and should not be used as the sole basis for treatment or other patient management decisions. This assay was developed by [employer] and distributed under an Emergency Use Authorization (EUA) granted by the FDA for the qualitative detection of SARS-CoV-2 nucleic acid. [place], [place] Test Performed by [facility], [address] [place] [address] Specimen Source Comment:Nasopharyngeal Swab [facility] [place] CR Chest Portableon 10-24-19 20 CR Chest Portable Patient Name: ALFIE HUGHES MS Diagnostic Radiology Exam Date/Time 10/24/2019 18:13:21 EDT Exam CR Chest Portable Ordering Physician MD CRUZ, MAYCOL Pelletier Accession Number [id number] CPT4 Codes 49616 () Reason For Exam cough, dyspnea, COVID+ last month Report Portable chest 10/24/2019: Clinical Information: History of Covid positive. Findings: A single AP portable view of the chest was obtained at 1808 hours. No prior studies for comparison. The trachea is midline. The heart is not enlarged. There is prominence of the interstitial markings bilaterally with the suggestion of some nodularity. Dedicated PA and lateral views of the chest are recommended for further evaluation. If that cannot be obtained, consider CT scanning. Report Dictated on Workstation: [id number]-[email or web address] Final Dictating Physician: MD SCOTT RISA Signed Date and Time: 10/24/2019 6:20 pm Signed by: MD SCOTT RISA Transcribed Date and Time: 10/24/2019 6:21 Normal [facility] CTA Chest W WO (PE study)on 10-24-2019 Patient Name: ALFIE HUGHES MS ---CT--- Exam Date/Time 10/24/2019 20:46:26 EDT Exam CTA Chest w/ + w/o Contrast Ordering Physician MD CRUZ, MAYCOL Pelletier Accession Number [id number] CPT4 Codes 58348 (), Q9967 (CT ISOVUE [id number]& [id number]) Reason For Exam ShOB, elevated D Dimer, recent COVID Report CT scan chest: Pulmonary embolus protocol: 10/24/2019. CLINICAL INFORMATION: Elevated d-dimer, recent Covid. FINDINGS: CT scans of the chest were performed at thin section imaging in the axial plane with sagittal and coronal reconstructions following bolus administration of intravenous contrast area the study was rendered and reviewed by me concurrently on the 3-D workstation. No filling defects are identified in the pulmonary vessels to suggest pulmonary embolus. No pleural fluid is seen. No mediastinal or hilar lymphadenopathy is identified. There are bilateral peripheral infiltrates with some nodularity. No groundglass infiltrates or focal consolidation is identified. IMPRESSION: Bilateral peripheral somewhat nodular infiltrates. Imaging features can be seen with (Covid-19) pneumonia, though are nonspecific and can occur with a variety of infectious and noninfectious processes. No evidence of pulmonary embolus. Report Dictated on Workstation: [id number]-[email or web address] --- Final --- Dictating Physician: MD SCOTT RISA Signed Date and Time: 10/24/2019 9:05 pm Signed by: MD SCOTT RISA Transcribed Date and Time: 10/24/2019 9:06 [facility] [place], [place], [facility] Incoming Radiology Results From [facility] - 10/24/2019 9:06 PM EDT Patient Name: ALFIE HOGAN ---CT--- Exam Date/Time 10/24/2019 20:46:26 EDT Exam CTA Chest w/ + w/o Contrast Ordering Physician MD ARROYO JASON T Accession Number [id number] CPT4 Codes 56881 (), Q9967 (CT ISOVUE 370MG/[id number]& 1) Reason For Exam ShOB, elevated D Dimer, recent COVID Report CT scan chest: Pulmonary embolus protocol: 10/24/2019. CLINICAL INFORMATION: Elevated d-dimer, recent Covid. FINDINGS: CT scans of the chest were performed at thin section imaging in the axial plane with sagittal and coronal reconstructions following bolus administration of intravenous contrast area the study was rendered and reviewed by me concurrently on the 3-D workstation. No filling defects are identified in the pulmonary vessels to suggest pulmonary embolus. No pleural fluid is seen. No mediastinal or hilar lymphadenopathy is identified. There are bilateral peripheral infiltrates with some nodularity. No groundglass infiltrates or focal consolidation is identified. IMPRESSION: Bilateral peripheral somewhat nodular infiltrates. Imaging features can be seen with (Covid-19) pneumonia, though are nonspecific and can occur with a variety of infectious and noninfectious processes. No evidence of pulmonary embolus. Report Dictated on Workstation: [id number]-[email or web address] --- Final --- Dictating Physician: MD SCOTT RISA Signed Date and Time: 10/24/2019 9:05 pm Signed by: MD SCOTT RISA Transcribed Date and Time: 10/24/2019 9:06 [place] CTA Chest w/ + w/o Contrasto n 10-24-2019 CTA Chest w/ + w/o Contrast Patient Name: ALFIE HOGAN CT Exam Date/Time 10/24/2019 20:46:26 EDT Exam CTA Chest w/ + w/o Contrast Ordering Physician MD ARROYO JASON T Accession Number [id number] CPT4 Codes 02987 (), Q9967 (CT ISOVUE [id number] dMLand1) Reason For Exam ShOB, elevated D Dimer, recent COVID Report CT scan chest: Pulmonary embolus protocol: 10/24/2019. CLINICAL INFORMATION: Elevated d-dimer, recent Covid. FINDINGS: CT scans of the chest were performed at thin section imaging in the axial plane with sagittal and coronal reconstructions following bolus administration of intravenous contrast area the study was rendered and reviewed by me concurrently on the 3-D workstation. No filling defects are identified in the pulmonary vessels to suggest pulmonary embolus. No pleural fluid is seen. No mediastinal or hilar lymphadenopathy is identified. There are bilateral peripheral infiltrates with some nodularity. No groundglass infiltrates or focal consolidation is identified. IMPRESSION: Bilateral peripheral somewhat nodular infiltrates. Imaging features can be seen with (Covid-19) pneumonia, though are nonspecific and can occur with a variety of infectious and noninfectious processes. No evidence of pulmonary embolus. Report Dictated on Workstation: HARPREET-REMOTE Final Dictating Physician: MD SCOTT RISA Signed Date and Time: 10/24/2019 9:05 pm Signed by: MD SCOTT RISA Transcribed Date and Time: 10/24/2019 9:06 Normal [facility] Comp Panel with Mg Reflexon 10-24-2019 ALP [Catalytic activity/Vol] 93 U/L Normal 38-126 [facility] Comment on above: Performed By: #### E SR, CRP2 #### [facility] [address] [place] [address] #### IGA #### [facility] [address] [place] [address] #### TTGA2, EMABO #### The performing lab is in the report. ALT [Catalytic activity/Vol] 19 U/L Normal 0-34 [facility] Comment on above: Result Comment: The ALT test is performed by an updated assay method. Please note that the reference intervals have been changed and are now sex specific. Performed By: #### E SR, CRP2 #### [facility] [address] [facility] [place] [address] #### IGA #### [facility] [address] [place] [address] #### TTGA2, EMABO #### The performing lab is in the report. AST [Catalytic activity/Vol] 32 U/L Normal 15-46 [facility] Comment on above: Performed By: #### E SR, CRP2 #### [facility] [address] [place] [address] #### IGA #### [facility] [address] [place] [address] #### TTGA2, EMABO #### The performing lab is in the report. Calcium [Mass/Vol] 7.9 mg/dL Low 8.4-10.4 [facility] Comment on above: Performed By: #### E SR, CRP2 #### [facility] [place] [address] #### IGA #### [place] [address] [place] [address] #### TTGA2, EMABO #### The performing lab is in the report. Glucose [Mass/Vol] 110 mg/dL High 70-100 [facility] Comment on above: Performed By: #### E SR, CRP2 #### [facility] [place] [address] #### IGA #### [place] [address] [place] [address] #### TTGA2, EMABO #### The performing lab is in the report. Urea nitrogen [Mass/Vol] 14 mg/dL Normal 7-20 [facility] Comment on above: Performed By: #### E SR, CRP2 #### [address] [place] [address] #### IGA #### [address] [place] [address] #### TTGA2, EMABO #### The performing lab is in the report. Anion gap [Moles/Vol] 11 Normal [facility] Comment on above: Performed By: #### E SR, CRP2 #### [facility] [address] [place] [address] #### IGA #### [place] [address] [place] [address] #### TTGA2, EMABO #### The performing lab is in the report. Bilirubin [Mass/Vol] 0.8 mg/dL Normal 0.2-1.3 [facility] Comment on above: Performed By: #### E SR, CRP2 #### [facility] [address] [place] [address] #### IGA #### [facility] [address] [place] [address] #### TTGA2, EMABO #### The performing lab is in the report. CO2 [Moles/Vol] 30 mmol/L Normal 22-30 [facility] Comment on above: Performed By: #### E SR, CRP2 #### [facility] [address] [place] [address] #### IGA #### [facility] [address] [place] [address] #### TTGA2, EMABO #### The performing lab is in the report. Creatinine [Mass/Vol] 1.17 mg/dL Normal 0.52-1.25 [facility] Comment on above: Performed By: #### E SR, CRP2 #### [facility] [place] [address] #### IGA #### [facility] [address] [place] [address] #### TTGA2, EMABO #### The performing lab is in the report. GFR/1.73 sq M predicted among blacks MDRD (S/P/Bld) [Vol rate/Area] 59.5 mL/min/{1.73_m2} Abnormal >60 [facility] Comment on above: Performed By: #### E SR, CRP2 #### [facility] [address] [place] [address] #### IGA #### [facility] [address] [place] [address] #### TTGA2, EMABO #### The performing lab is in the report. GFR/1.73 sq M predicted among non-blacks MDRD (S/P/Bld) [Vol rate/Area] 51.4 mL/min/{1.73_m2} Abnormal >60 [facility] Comment on above: Result Comment: KDIG O guidelines provide the following GFR categories: Stage GFR(ml/min/1.73 m2) Terms G1 >=90 Normal or high G2 60-89 Mildly decreased* G3a 45-59 Mildly to moderately decreased G3b 30-44 Moderately to severely decreased G4 15-29 Severely decreased G5 <15 Kidney failure *Relative to young adult level. In the absence of evidence of kidney damage, neither GFR category G1 nor G2 fulfill the criteria for CKD. The CKD-EPI equation is validated in individuals 18 years of age and older. Currently the best equation for estimating glomerular filtration rate (GFR) from serum creatinine in children is the Bedside Vásquez equation. It is less accurate in patients with extremes of muscle mass, restriction of dietary protein, ingestion of creatine, extra-renal metabolism of creatinine, or treatment with medications that affect renal tubular creatinine secretion. Performed By: #### Sky MARION, CRP2 #### [facility] [address] [place] [address] #### IGA #### [address] [place] [address] #### TTGA2, EMABO #### The performing lab is in the report. Protein [Mass/Vol] 6.0 g/dL Low 6.3-8.2 [facility] Comment on above: Performed By: #### E , CRP2 #### [address] [address] #### IGA #### [address] [place] [address] #### TTGA2, EMABO #### The performing lab is in the report. Potassium [Moles/Vol] 3.6 mmol/L Normal 3.5-5.1 [facility] Comment on above: Performed By: #### E SR, CRP2 #### [address] [address] #### IGA #### [address] [place] [address] #### TTGA2, EMABO #### The performing lab is in the report. Albumin [Mass/Vol] 3.5 g/dL Normal 3.5-5.0 [facility] Comment on above: Performed By: #### E , CRP2 #### [address] [place] [address] #### IGA #### [facility] [address] [place] [address] #### TTGA2, EMABO #### The performing lab is in the report. Chloride [Moles/Vol] 98 mmol/L Normal 98-107 [facility] Comment on above: Performed By: #### E SR, CRP2 #### [facility] [address] [place] [address] #### IGA #### [facility] [address] [place] [address] #### TTGA2, EMABO #### The performing lab is in the report. Sodium [Moles/Vol] 139 mmol/L Normal 135-145 [facility] Comment on above: Performed By: #### E SR, CRP2 #### [facility] [address] [place] [address] #### IGA #### [facility] [address] [place] [address] #### TTGA2, EMABO #### The performing lab is in the report. Comprehensive Metabolic Pane l w/ Reflex to MGon 10-24-2019 Albumin [Mass/Vol] 3.5 g/dL 3.5 - 5 g/dL [place] ALP [Catalytic activity/Vol] 93 U/L 38 - 126 U/L [place] ALT [Catalytic activity/Vol] 19 U/L 0 - 34 U/L [place] Comment on above: The ALT test is perf ormed by an updated assay method. Please note that the reference intervals have been changed and are now sex specific. Anion gap [Moles/Vol] 11 mmol/L [place] AST [Catalytic activity/Vol] 32 U/L 15 - 46 U/L [place] Bilirubin Ql (U) 0.8 mg/dL 0.2 - 1.3 mg/dL [place] Calcium [Mass/Vol] 7.9 mg/dL Low 8.4 - 10. 4 mg/dL [place] Chloride [Moles/Vol] 98 mmol/L 98 - 10 7 mmol/L [place] CO2 [Moles/Vol] 30 mmol/L 22 - 30 mmol/L [place] Creatinine [Mass/Vol] 1.17 mg/dL 0.52 - 1.25 mg/dL [place] EGFR IF NonAfrican [place]ese 51.4 mL/min Abnormal >60 [place] Comment on above: KDIGO guidelines pro vide the following GFR categories: Stage GFR(ml/min/1.73 m2) Terms G1 >=90 Normal or high G2 60-89 Mildly decreased* G3a 45-59 Mildly to moderately decreased G3b 30-44 Moderately to severely decreased G4 15-29 Severely decreased G5 <15 Kidney failure *Relative to young adult level. In the absence of evidence of kidney damage, neither GFR category G1 nor G2 fulfill the criteria for CKD. The CKD-EPI equation is validated in individuals 18 years of age and older. Currently the best equation for estimating glomerular filtration rate (GFR) from serum creatinine in children is the Bedside Vásquez equation. It is less accurate in patients with extremes of muscle mass, restriction of dietary protein, ingestion of creatine, extra-renal metabolism of creatinine, or treatment with medications that affect renal tubular creatinine secretion. GFR/1.73 sq M predicted among blacks MDRD (S/P/Bld) [Vol rate/Area] 59.5 mL/min/{1.73_m2} Abnormal >60 [place] Glucose [Mass/Vol] 110 mg/dL High 70 - 100 mg/dL [place] Potassium [Moles/Vol] 3.6 mmol/L 3.5 - 5.1 mmol/L [place] Protein [Mass/Vol] 6.0 g/dL Low 6.3 - 8.2 g/dL [place] Sodium [Moles/Vol] 139 mmol/L 135 - 145 mmol/L [place] Urea nitrogen [Mass/Vol] 14 mg/dL 7 - 20 mg/dL [place] D-Dimer, Innovanceon 05-22-2 020 D-Dimer, Innovance 0.91 mg/L High 0.00-0.50 [facility] Comment on above: Result Comment: Inno myers D-Dimer values of <0.50 mg/L FEU can be used in combination with a pre-test probability model (e.g. Well's) to exclude pulmonary embolism (PE) disease, as well as an aid in the diagnosis of deep vein thrombosis (DVT). Performed By: #### E , CRP2 #### [facility] [address] [place] [address] #### IGA #### [facility] [address] [place] [address] #### TTGA2, EMABO #### The performing lab is in the report. D-Dimer, Quantitativeon 10-03 D-Dimer, Quant 0.91 mg/L High 0 - 0.5 mg/L [place] Comment on above: Innovance D-Dimer va lues of <0.50 mg/L FEU can be used in combination with a pre-test probability model (e.g. Well's) to exclude pulmonary embolism (PE) disease, as well as an aid in the diagnosis of deep vein thrombosis (DVT). Interpretation and review of laboratory results Abnormal [place] Test Performed by [facility], [address] [place], [place] [address] [place] [address] Hemogram w/ Autodiffon 10-23 Abs Baso Cnt 0.0 10*3/uL Normal 0.0-0.2 [facility] Comment on above: Performed By: #### Sky MARION, CRP2 #### [facility] [place] [address] #### IGA #### [facility] [address] [place] [address] #### TTGA2, EMABO #### The performing lab is in the report. Abs Neutrophile Cnt 1.9 10*3/uL Normal 1.8-7.0 [facility] Comment on above: Performed By: #### E , CRP2 #### [facility] [address] [place] [address] #### IGA #### [facility] [address] [place] [address] #### TTGA2, EMABO #### The performing lab is in the report. Basophils/100 WBC (Bld) 0.7 % Normal 0.0-2.0 [facility] Comment on above: Performed By: #### E SR, CRP2 #### [facility] [address] [place] [address] #### IGA #### [facility] [address] [place] [address] #### TTGA2, EMABO #### The performing lab is in the report. Eosinophils (Bld) [#/Vol] 0.1 10*3/uL Normal 0.0-0.5 [facility] Comment on above: Performed By: #### E SR, CRP2 #### [facility] [place] [address] #### IGA #### [address] [place] [address] #### TTGA2, EMABO #### The performing lab is in the report. Eosinophils/100 WBC (Bld) 1.2 % Normal 1.0-6.0 [facility] Comment on above: Performed By: #### E SR, CRP2 #### [facility] [place] [address] #### IGA #### [facility] [address] [place] [address] #### TTGA2, EMABO #### The performing lab is in the report. Erythrocyte distribution width (RBC) [Ratio] 17.8 % High 11.5-14.5 [facility] Comment on above: Performed By: #### E SR, CRP2 #### [facility] [address] [facility] [place] [address] #### IGA #### [address] [place] [address] #### TTGA2, EMABO #### The performing lab is in the report. Granulocytes/100 WBC (Bld) 39.1 % Low 40.0-80.0 [facility] Comment on above: Performed By: #### E SR, CRP2 #### [facility] [address] [place] [address] #### IGA #### [facility] [address] [place] [address] #### TTGA2, EMABO #### The performing lab is in the report. Hematocrit (Bld) [Volume fraction] 31.3 % Low 35.0-47.0 [facility] Comment on above: Performed By: #### E SR, CRP2 #### [facility] [place] [address] #### IGA #### [facility] [address] [place] [address] #### TTGA2, EMABO #### The performing lab is in the report. Hemoglobin (Bld) [Mass/Vol] 10.1 g/dL Low 11.7-16.0 [facility] Comment on above: Performed By: #### E SR, CRP2 #### [facility] [place] [address] #### IGA #### [address] [place] [address] #### TTGA2, EMABO #### The performing lab is in the report. Lymphocytes (Bld) [#/Vol] 2.6 10*3/uL Normal 1.0-4.3 [facility] Comment on above: Performed By: #### E SR, CRP2 #### [facility] [place] [address] #### IGA #### [facility] [address] [place] [address] #### TTGA2, EMABO #### The performing lab is in the report. Lymphocytes/100 WBC (Bld) 53.3 % High 20.0-40.0 [facility] Comment on above: Performed By: #### E SR, CRP2 #### [facility] [place] [address] #### IGA #### [address] [place] [address] #### TTGA2, EMABO #### The performing lab is in the report. MCH (RBC) [Entitic mass] 30.9 pg Normal 26.0-34.0 [facility] Comment on above: Performed By: #### E SR, CRP2 #### [facility] [address] [place] [address] #### IGA #### [facility] [address] [place] [address] #### TTGA2, EMABO #### The performing lab is in the report. MCHC (RBC) [Mass/Vol] 32.4 % Normal 32.0-36.0 [facility] Comment on above: Performed By: #### E SR, CRP2 #### [facility] [place] [address] #### IGA #### [facility] [address] [place] [address] #### TTGA2, EMABO #### The performing lab is in the report. MCV (RBC) [Entitic vol] 95.4 fL Normal 79.0-98.0 [facility] Comment on above: Performed By: #### E SR, CRP2 #### [facility] [place] [address] #### IGA #### [facility] [address] [place] [address] #### TTGA2, EMABO #### The performing lab is in the report. Monocytes (Bld) [#/Vol] 0.3 10*3/uL Normal 0.0-0.8 [facility] Comment on above: Performed By: #### E SR, CRP2 #### [facility] [place] [address] #### IGA #### [facility] [address] [place] [address] #### TTGA2, EMABO #### The performing lab is in the report. Monocytes/100 WBC (Bld) 5.7 % Normal 2.0-10.0 [facility] Comment on above: Performed By: #### E SR, CRP2 #### [address] [place] [address] #### IGA #### [facility] [address] [place] [address] #### TTGA2, EMABO #### The performing lab is in the report. Platelet mean volume (Bld) [Entitic vol] 8.0 fL Normal 7.4-10.4 [facility] Comment on above: Performed By: #### Sky MARION, CRP2 #### [facility] [address] [place] [address] #### IGA #### [facility] [address] [place] [address] #### TTGA2, EMABO #### The performing lab is in the report. Platelets (Bld) [#/Vol] 193 10*3/uL Normal 140-440 [facility] Comment on above: Performed By: #### Sky MARION, CRP2 #### [facility] [place] [address] #### IGA #### [facility] [address] [place] [address] #### TTGA2, EMABO #### The performing lab is in the report. RBC (Bld) [#/Vol] 3.28 10*6/uL Low 3.80-5.20 [facility] Comment on above: Performed By: #### Sky MARION, CRP2 #### [facility] [place] [address] #### IGA #### [facility] [address] [place] [address] #### TTGA2, EMABO #### The performing lab is in the report. WBC (Bld) [#/Vol] 4.9 10*3/uL Normal 3.6-10.7 [facility] Comment on above: Performed By: #### E SR, CRP2 #### [facility] [address] [place] [address] #### IGA #### [facility] [address] [place] [address] #### TTGA2, EMABO #### The performing lab is in the report. LDHon 05-22-2020 LDH 301 U/L High 50-170 [facility] Comment on above: Performed By: #### E SR, CRP2 #### [facility] [address] [place] [address] #### IGA #### [facility] [address] [place] [address] #### TTGA2, EMABO #### The performing lab is in the report. Lactate Dehydrogenaseon 10-03 LD 301 U/L High 50 - 170 U/L [place] NT pro BNPon 10-24-2019 Natriuretic peptide B (Bld) [Mass/Vol] 109 pg/mL Normal 0-125 [facility] Comment on above: Performed By: #### E , CRP2 #### [facility] [address] [facility] [place] [address] #### IGA #### [facility] [address] [place] [address] #### TTGA2, EMABO #### The performing lab is in the report. Otheron 10-24-2019 Test Performed by [facility], [address] [place], [place] [id number] [place] [address] Interpretation and review of laboratory results Abnormal [place], [place] Test Performed by [facility], [address] [place], [place] [id number] [place] [address] Procalcitoninon 10-24-2019 Interpretation See Below Normal [facility] Comment on above: Result Comment: PCT <0.50 = Low risk of severe sepsis and/or septic shock. PCT >2.00 = High risk of severe sepsis and/or septic shock. Performed By: #### E SR, CRP2 #### [facility] [address] [place] [address] #### IGA #### [facility] [address] [place] [address] #### TTGA2, EMABO #### The performing lab is in the report. [id number] 10-24-2019 SARS-CoV-2 SARS-CoV-2 --> Statu s: F Not Detected Expected Result: Not Detected _ Real-time, RT-PCR performed on the [facility] by the [facility]. Negative results do not preclude SARS-CoV-2 infection and should not be used as the sole basis for treatment or other patient management decisions. This assay was developed by [employer] and distributed under an Emergency Use Authorization (EUA) granted by the FDA for the qualitative detection of SARS-CoV-2 nucleic acid. Expected Result: Not Detected _ Real-time, RT-PCR performed on the [facility] by the [facility]. Negative results do not preclude SARS-CoV-2 infection and should not be used as the sole basis for treatment or other patient management decisions. This assay was developed by [employer] and distributed under an Emergency Use Authorization (EUA) granted by the FDA for the qualitative detection of SARS-CoV-2 nucleic acid. Normal [facility] Comment on above: Order Comment: Speci men Source Comment:Nasopharyngeal Swab Performed By: #### Sky MARION, CRP2 #### [facility] [address] [place] [address] #### IGA #### [facility] [address] [place] [address] #### TTGA2, EMABO #### The performing lab is in the report. TROPONINon 10-24-2019 Troponin I.cardiac [Mass/Vol] ng/mL 0 - 0.034 ng/mL [place] Comment on above: . Test Performed by [facility], [address], [place], [place] [address] [place] Troponinon 10-24-2019 Troponin I.cardiac [Mass/Vol] ng/mL 0 - 0.034 ng/mL [place] Comment on above: . Troponin Ion 10-24-2019 Troponin I.cardiac [Mass/Vol] ng/mL Normal 0.000-0.034 [facility] Comment on above: Result Comment: . Performed By: #### E SR, CRP2 #### [facility] [address] [place] [address] #### IGA #### [facility] [address] [place] [address] #### TTGA2, EMABO #### The performing lab is in the report. XR CHEST PORTABLEon 10-24-19 Patient Name: ALFIE HUGHES MS ---Diagnostic Radiology--- Exam Date/Time 10/24/2019 18:13:21 EDT Exam CR Chest Portable Ordering Physician MD ARROYO JASON T Accession Number [id number] CPT4 Codes 03192 () Reason For Exam cough, dyspnea, COVID+ last month Report Portable chest 10/24/2019: Clinical Information: History of Covid positive. Findings: A single AP portable view of the chest was obtained at 1808 hours. No prior studies for comparison. The trachea is midline. The heart is not enlarged. There is prominence of the interstitial markings bilaterally with the suggestion of some nodularity. Dedicated PA and lateral views of the chest are recommended for further evaluation. If that cannot be obtained, consider CT scanning. Report Dictated on Workstation: [id number] --- Final --- Dictating Physician: MD SCOTT RISA Signed Date and Time: 10/24/2019 6:20 pm Signed by: MD SCOTT RISA Transcribed Date and Time: 10/24/2019 6:21 [place], [place] [facility] Incoming Radiology Results From [facility] - 10/24/2019 6:22 PM EDT Patient Name: ALFIE HOGAN ---Diagnostic Radiology--- Exam Date/Time 10/24/2019 18:13:21 EDT Exam CR Chest Portable Ordering Physician MD ARROYO JASON T Accession Number [id number] CPT4 Codes 21200 () Reason For Exam cough, dyspnea, COVID+ last month Report Portable chest 10/24/2019: Clinical Information: History of Covid positive. Findings: A single AP portable view of the chest was obtained at 1808 hours. No prior studies for comparison. The trachea is midline. The heart is not enlarged. There is prominence of the interstitial markings bilaterally with the suggestion of some nodularity. Dedicated PA and lateral views of the chest are recommended for further evaluation. If that cannot be obtained, consider CT scanning. Report Dictated on Workstation: [id number] --- Final --- Dictating Physician: MD SANDRINE, BRIE Signed Date and Time: 10/24/2019 6:20 pm Signed by: MD SCOTT RISA Transcribed Date and Time: 10/24/2019 6:21 [facility], [place] Surgical Pathologyon 020 Surgical Pathology [id number] [facility] PATH[facility]ORATORY MEDICINE [address] [place] [address] Fax - FINAL SURGICAL PATHOLOGY REPORT NAME: ALFIE HOGAN : 1960 58 Y F BILLING NO.: [id number] LOCATION: [facility] PROCEDURE 07/25/2019 DATE: SURGEON: KODY SANDHU MD RECEIVED 07/25/2019 DATE: ATTENDING: KODY SANDHU MD REPORT DATE: 07/30/2019 COPIES TO: DIAGNOSIS: A. DUODENUM, BIOPSY - SEVERAL FRAGMENTS OF BENIGN DUODENAL MUCOSA WITH PRESERVED VILLOUS ARCHITECTURE. SEE COMMENT. COMMENT: The specimen demonstrates an unremarkable villous architecture without significantly increased intraepithelial lymphocytes. Whipple's disease is not identified. Parasites are not identified. B. STOMACH, BODY, BIOPSY - REACTIVE GASTROPATHY. SEE COMMENT. COMMENT: Evaluation of the H&E-stained sections shows no evidence of Helicobacter pylori or any morphologic features to suggest infection with the organism; as such, further studies for Helicobacter are not indicated. There is no evidence of intestinal metaplasia, dysplasia or malignancy. Reference: Gurvinder BOTELLO et al. Appropriate use of special stains for identifying Helicobacter pylori: Recommendations from the [employer] C. [employer] Gastrointestinal [employer] Society. Am J Surg Pathol. 2013 Nov;37(11):e12-22. C. 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 NEGATIVE FOR DYSPLASIA. COMMENT: AB/PAS shows focal intestinal metaplasia. D. COLON, RECTUM, BIOPSY - BENIGN COLONIC MUCOSAWITH FOCAL HYPERPLASTIC CHANGES. 0SS/0SS Signature> ZACH AVALOS MD CLINICAL INFORMATION: Epigastric abdominal pain, diarrhea, nausea with vomiting SPECIMEN: (A) DUODENUM, BIOPSY (B) GASTRIC BIOPSY (C) ESOPHAGO-GASTRIC JUNCTION, BIOPSY (D) COLON BIOPSY GROSS DESCRIPTION: A. Duodenum Received in formalin are four fragments of rose tissue aggregating to 0.7 x 0.3 cm. The entire specimen is submitted into one cassette. (bits ns, 1) B. Stomach - body Received in formalin are four fragments of rose tissue aggregating to 0.8 x 0.3 cm. The entire specimen is submitted into one cassette. (bits ns, 1) C. Gastroesophageal junction Received in formalin are three fragments of rose tissue aggregating to 1 x 0.4 cm. The entire specimen is submitted into one cassette. (3 ns, 1) D. Random colon biopsies Received in formalin are six fragments of rose tissue aggregating to 0.9 x 0.5 cm. The entire specimen is submitted into one cassette. (bits ns, 1) 3/JAF Disclaimer: The following statement applies to all immunohistochemistry, in situ hybridization, molecular studies, and immunofluorescence testing. The use of one or more reagents in the above tests is regulated as an analyte specific reagent (ASR). These tests were developed and their performance characteristics determined by the clinical laboratories of [facility]. They have not been cleared by the US Food and Drug Administration (FDA). The FDA has determined that such clearance or approval is not necessary. All the above immunostains were performed on paraffin embedded tissue. Appropriate positive and negative controls (where applicable) were run in parallel with the patient's specimen; these controls showed expected staining pattern, with acceptable intensity of staining. Immunohistochemical assays have not been validated on decalcified tissues. Results should be interpreted with caution given the raised possibility of false negativity on decalcified specimens. Case reviewed at [address] [address]. DEPARTMENT OF PATHOLOGY AND LABORATORY MEDICINE [place], [place] [address] Normal [facility] C. difficile toxin Molecular on 03-08-2019 CLOSTRIDIUM DIFFICILE NEGATIVE Methodology - Real Time PCR (Cepheid) Clinical judgement must be used when interpreting results. Positive results may reflect colonization. Indeterminate results suggest a new specimen be submitted. [place], [place] Test Performed by [facility], [address] [place] [address] [place], [place] Clostridium difficile PCRon 03-08-2019 Clostridium difficile PCR Clostridium difficile by PCR --> Status: F NEGATIVE Methodology - Real Time PCR (Cepheid) Clinical judgement must be used when interpreting results. Positive results may reflect colonization. Indeterminate results suggest a new specimen be submitted. Methodology - Real Time PCR (Cepheid) Clinical judgement must be used when interpreting results. Positive results may reflect colonization. Indeterminate results suggest a new specimen be submitted. Normal [facility] Comment on above: Performed By: #### C DPCR #### [address] [address] Calprotectin, Fecalon 2018 Protein [Mass/Vol] g/dL Normal <=50 [facility] Comment on above: Result Comment: INTE RPRETIVE INFORMATION: Calprotectin, Fecal 50 ug/g or less: Normal 51-120 ug/g: Borderline elevated, test should be re-evaluated in 4-6 weeks. 121 ug/g or greater: Abnormal Performed by [facility], [address] [place] [address],[place] [address] [email or web address] MD - Lab. Director Performed By: #### G IPCR #### [facility] [address] [place] [address] #### CALPO #### The performing lab is in the report. Endomysial Ab, IgAon 019 Endomysial Ab, IgA < 1 : 10 Normal <1:10 [facility] Comment on above: Result Comment: INTE RPRETIVE INFORMATION: Endomysial Antibody, IgA Titer The endomysial antigen has been identified as the protein cross-linking enzyme known as tissue transglutaminase. Performed by [facility], [address] [facility] [facility],[place] [id number] [email or web address], Heriberto Nelson MD - Lab. Director Performed By: #### Sky SR, CRP2 #### [facility] [address] [place] [address] #### IGA #### [facility] [address] [place] [address] #### TTGA2, EMABO #### The performing lab is in the report. TTG, IgAon 02-17-2019 TTG, IgA 0 U/mL Normal 0-3 [facility] Comment on above: Result Comment: INTE RPRETIVE INFORMATION: Tissue Transglutaminase (tTG) Antibody, IgA 3 U/mL or less: Negative 4-10 U/mL: Weak Positive 11 U/mL or greater: Positive Presence of the tissue transglutaminase (tTG) IgA antibody is associated with glutensensitive enteropathies such as celiac disease and dermatitis herpetiformis. tTG IgA antibody concentrations greater than 40 U/mL usually correlate with results of duodenal biopsies consistent with a diagnosis of celiac disease. For antibody concentrations greater or equal to 4 U/mL but less than or equal to 40 U/mL, additional testing for endomysial (CHOLO) IgA concentrations may improve the positive predictive value for disease. Performed by [facility], [address] [facility],[place] [id number] [email or web address], Heriberto Nelson MD - Lab. Director Performed By: #### E SR, CRP2 #### [employer] [facility] [address] [place] [address] #### IGA #### [facility] [address] [place] [address] #### TTGA2, EMABO #### The performing lab is in the report. C-Reactive Proteinon 019 CRP [Mass/Vol] mg/L Normal 0.0-6.0 [facility] Comment on above: Result Comment: . Performed By: #### E SR, CRP2 #### [facility] [address] [place] [address] #### IGA #### [facility] [address] [place] [address] #### TTGA2, EMABO #### The performing lab is in the report. CRP [Mass/Vol] mg/L 0 - 6 mg/L [place] Comment on above: . Test Performed by [facility], [address] , [place], [place] [address] [place] C. difficile toxin Molecular on 02-14-2019 CLOSTRIDIUM DIFFICILE POSITIVE Methodology - Real Time PCR ([employer]) Clinical judgement must be used when interpreting results. Positive results may reflect colonization. Indeterminate results suggest a new specimen be submitted. Abnormal [place], [place] Interpretation and review of laboratory results Abnormal [place] Test Performed by [facility], [address] [place] [address] [place] Clostridium difficile PCRon 02-14-2019 Clostridium difficile PCR Clostridium difficile by PCR --> Status: F POSITIVE Methodology - Real Time PCR (Cepheid) Clinical judgement must be used when interpreting results. Positive results may reflect colonization. Indeterminate results suggest a new specimen be submitted. Methodology - Real Time PCR (Cepheid) Clinical judgement must be used when interpreting results. Positive results may reflect colonization. Indeterminate results suggest a new specimen be submitted. Abnormal [facility] Comment on above: Performed By: #### C DPCR #### [facility] [address] [place] [address] GASTROINTESTINAL PCR PANELon 02-14-2019 GASTROINTESTINAL PCR PANEL GASTROINTESTINAL PCR PANEL --> Status: F NEGATIVE: No targets were detected by the [employer] Gastrointestinal PCR Panel. The [employer] Gastrointestinal PCR Panel detects the following targets: Campylobacter Plesiomonas shigelloides Salmonella Vibrio species Vibrio cholerae Yersinia enterocolitica Shiga-like toxin producing E. coli (STEC), including E. coli O157 Enterotoxigenic E. coli (ETEC) lt/st Shigella/Enteroinvasive E. coli (EIEC) Cryptosporidium Cyclospora cayetanensis Entamoeba histolytica Giardia lamblia Adenovirus F 40/41 Astrovirus Norovirus GI/GII Rotavirus A Sapovirus Clostridioides (Clostridium) difficile toxin is no longer being reported on the GI panel. If patient symptoms are consistent with C. difficile infection, the assay can be ordered separately with [employer] ([id number]). Gastrointestinal PCR Panel. The [employer] Gastrointestinal PCR Panel detects the following targets: Campylobacter Plesiomonas shigelloides Salmonella Vibrio species Vibrio cholerae Yersinia enterocolitica Shiga-like toxin producing E. coli (STEC), including E. coli O157 Enterotoxigenic E. coli (ETEC) lt/st Shigella/Enteroinvasive E. coli (EIEC) Cryptosporidium Cyclospora cayetanensis Entamoeba histolytica Giardia lamblia Adenovirus F 40/41 Astrovirus Norovirus GI/GII Rotavirus A Sapovirus Clostridioides (Clostridium) difficile toxin is no longer being reported on the GI panel. If patient symptoms are consistent with C. difficile infection, the assay can be ordered separately with [employer] ([id number]). Normal [facility] Comment on above: Performed By: #### G IPCR #### [address] [address] #### CALPO #### The performing lab is in the report. Gastrointestinal Panel by ADALID Rios 02-14-2019 Gastrointestinal PCR Panel NEGATIVE: No targets were detected by the [employer] Gastrointestinal PCR Panel. The [employer] Gastrointestinal PCR Panel detects the following targets: Campylobacter Plesiomonas shigelloides Salmonella Vibrio species Vibrio cholerae Yersinia enterocolitica Shiga-like toxin producing E. coli (STEC), including E. coli O157 Enterotoxigenic E. coli (ETEC) lt/st Shigella/Enteroinvasive E. coli (EIEC) Cryptosporidium Cyclospora cayetanensis Entamoeba histolytica Giardia lamblia Adenovirus F 40/41 Astrovirus Norovirus GI/GII Rotavirus A Sapovirus Clostridioides (Clostridium) difficile toxin is no longer being reported on the GI panel. If patient symptoms are consistent with C. difficile infection, the assay can be ordered separately with [facility] ([id number]). [email or web address] [place], [place] Test Performed by [facility], [address] [place] [address] [facility] [place], [place] IgAon 02-14-2019 IgA [Mass/Vol] mg/dL Low 70 - 400 mg/dL [facility] [place] Interpretation and review of laboratory results Abnormal [facility] [place] [employer] [place] Test Performed by [facility], [address], [place], [place] [address] [facility], [place] IgA,Bloodon 02-14-2019 IgA,Blood < 40.0 Low 70.0-400.0 [facility] Comment on above: Performed By: #### E SR, CRP2 #### [facility] [address] [place] [address] #### IGA #### [facility] [address] [place] [address] #### TTGA2, EMABO #### The performing lab is in the report. Sed Rateon 02-14-2019 Sed Rate 9 mm/h Normal 0-20 [facility] Comment on above: Performed By: #### E SR, CRP2 #### [facility] [address] [place] [address] #### IGA #### [facility] [address] [place] [address] #### TTGA2, EMABO #### The performing lab is in the report. Sedimentation Rateon 019 Sed Rate 9 mm/h 0 - 20 mm/h [facility] Test Performed by [facility], [address] , [place], [place] [address] [place] Office Visit: [facility]: Lumbar st rain, neck pain, bilateral hip painon 03-08-2017 Fall risk assessment No Invalid Interpretation Code [facility] Work Phone: Protein mass conc T Invalid Interpretation Code [facility] Work Phone: Protein mass conc Done Invalid Interpretation Code [facility] Work Phone: Tobacco smoking status NHIS Never Invalid Interpretation Code [facility] Work Phone: Tobacco smoking status NHIS Never smoker Invalid Interpretation Code [facility] Work Phone: Culture, urine Bacteria identified Cx Nom (U) Culture exhibits no growth. [facility] Work Phone: Vital Signs Date Time Vital Sign Value Performing Clinician Bobbi lin 11-10-2024 12:56-0400 Heart rate 101 /min Corin Mariscal MD Work Phone: [facility] 11-10-2024 12:56-0400 Respiratory rate 16 /min Corin Mariscal MD Work Phone: [facility] 11-10-2024 10:17-0400 Inhaled oxygen flow rate 2 L/min Corin Mariscal MD Work Phone: [facility] 11-10-2024 10:00-0400 Body temperature 98.9 [degF] Corin Mariscal MD Work Phone: [facility] 11-10-2024 10:00-0400 Diastolic blood pressure 64 mm[Hg] Corin Mariscal MD Work Phone: [facility] 11-10-2024 10:00-0400 SaO2% (BldA) [Mass fraction] 94 % Corin Mariscal MD Work Phone: [facility] 11-10-2024 10:00-0400 Systolic blood pressure 120 mm[Hg] Corin Mariscal MD Work Phone: [facility] 11-08-2024 13:07-0400 Body height 170.18 cm Corin Mariscal MD Work Phone: [facility] 11-08-2024 13:07-0400 Body weight 135.9 kg Corin Mariscal MD Work Phone: [facility] 11-07-2024 19:56-0400 Body mass index (BMI) [Ratio] 46.9 kg/m2 Corin Mariscal MD Work Phone: [facility] 11-07-2024 16:36-0400 Body temperature 98.1 [degF] Corin Mariscal MD Work Phone: [facility] 11-07-2024 16:36-0400 Diastolic blood pressure 71 mm[Hg] Corin Mariscal MD Work Phone: [phone](065)717-709827 [place] [address] 11-07-2024 16:36-0400 Heart rate 90 /min Corin Mariscal MD Work Phone: 7(184)483-609827 [place] [address] 11-07-2024 16:36-0400 Respiratory rate 18 /min Corin Mariscal MD Work Phone: 0(498)269-141627 [place] [address] 11-07-2024 16:36-0400 SaO2% (BldA) [Mass fraction] 100 % Corin Mariscal MD Work Phone: 7(696)888-667227 [place] [address] 11-07-2024 16:36-0400 Systolic blood pressure 108 mm[Hg] Corin Mariscal MD Work Phone: 6(981)897-050521 [place] [address] 11-07-2024 15:36-0400 Inhaled oxygen flow rate 3 L/min Corin Mariscal MD Work Phone: 8(818)420-469327 [place] [address] 11-07-2024 10:18-0400 Body height 172.72 cm Corin Mariscal MD Work Phone: 5(689)077-026227 [place] [address] 11-07-2024 10:18-0400 Body mass index (BMI) [Ratio] 38.2 kg/m2 Corin Mariscal MD Work Phone: [facility] 11-07-2024 10:18-0400 Body weight 114.3 kg Corin Mariscal MD Work Phone: 8(859)007-836921 [place] [address] 10-21-2024 14:16-0400 Body temperature 96.3 [degF] Corin Mariscal MD Work Phone: [phone](178)663-487221 [place] [address] 10-21-2024 14:16-0400 Diastolic blood pressure 77 mm[Hg] Corin Mariscal MD Work Phone: 4(016)581-806321 [place] [address] 10-21-2024 14:16-0400 Heart rate 86 /min Corin Mariscal MD Work Phone: [facility] 10-21-2024 14:16-0400 Respiratory rate 16 /min Corin Mariscal MD Work Phone: [facility] 10-21-2024 14:16-0400 SaO2% (BldA) [Mass fraction] 100 % Corin Mariscal MD Work Phone: [facility] 10-21-2024 14:16-0400 Systolic blood pressure 119 mm[Hg] Corin Mariscal MD Work Phone: [facility] 10-21-2024 12:03-0400 Body height 172.72 cm Corin Mariscal MD Work Phone: [facility] 10-21-2024 12:03-0400 Body mass index (BMI) [Ratio] 38 kg/m2 Corin Mariscal MD Work Phone: [facility] 10-21-2024 12:03-0400 Body weight 113.39 kg Corin Mariscal MD Work Phone: [facility] 10-21-2024 12:03-0400 Inhaled oxygen flow rate 4 L/min Corin Mariscal MD Work Phone: [facility] 10-15-2024 14:45-0400 Body height 165 cm Jose Dennison DO Work Phone: [facility] 10-15-2024 14:45-0400 Body mass index (BMI) [Ratio] 43.07 kg/m2 Jose Dennison DO Work Phone: [facility] 10-15-2024 14:45-0400 Body temperature 97.7 [degF] Jose Dennison DO Work Phone: [facility] 10-15-2024 14:45-0400 Body weight 117.25 kg Jose Dennison DO Work Phone: [facility] 10-15-2024 14:45-0400 Diastolic blood pressure 58 mm[Hg] Jose Dennison DO Work Phone: [facility] 10-15-2024 14:45-0400 Heart rate 94 /min Jose Dennison DO Work Phone: [facility] 10-15-2024 14:45-0400 SaO2% (BldA) [Mass fraction] 92 % Jose Dennison DO Work Phone: [facility] Comment on above: 3L of O2 10-15-2024 14:45-0400 Systolic blood pressure 103 mm[Hg] Jose Dennison DO Work Phone: [facility] 10-14-2024 15:02-0400 Body temperature 96.9 [degF] Corin Mariscal MD Work Phone: [facility] 10-14-2024 15:02-0400 Diastolic blood pressure 78 mm[Hg] Corin Mariscal MD Work Phone: [facility] 10-14-2024 15:02-0400 Heart rate 80 /min Corin Mariscal MD Work Phone: [facility] 10-14-2024 15:02-0400 Respiratory rate 16 /min Corin Mariscal MD Work Phone: [facility] 10-14-2024 15:02-0400 SaO2% (BldA) [Mass fraction] 99 % Corin Mariscal MD Work Phone: [facility] 10-14-2024 15:02-0400 Systolic blood pressure 125 mm[Hg] Corin Mariscal MD Work Phone: [facility] 10-14-2024 11:58-0400 Body height 172.72 cm Corin Mariscal MD Work Phone: [facility] 10-14-2024 11:58-0400 Body mass index (BMI) [Ratio] 38 kg/m2 Corin Mariscal MD Work Phone: [facility] [facility] 10-14-2024 11:58-0400 Body weight 113.39 kg Corin Mariscal MD Work Phone: [facility] 10-14-2024 11:58-0400 Inhaled oxygen flow rate 4 L/min Corin Mariscal MD Work Phone: [facility] 09-30-2024 21:00-0400 Heart rate 95 /min Corin Mariscal MD Work Phone: [facility] 09-30-2024 21:00-0400 Respiratory rate 15 /min Corin Mariscal MD Work Phone: [facility] 09-30-2024 21:00-0400 SaO2% (BldA) [Mass fraction] 95 % Corin Mariscal MD Work Phone: [facility] 09-30-2024 20:59-0400 Body temperature 98.1 [degF] Corin Mariscal MD Work Phone: [facility] 09-30-2024 20:59-0400 Diastolic blood pressure 71 mm[Hg] Corin Mariscal MD Work Phone: [facility] 09-30-2024 20:59-0400 Systolic blood pressure 125 mm[Hg] Corin Mariscal MD Work Phone: [facility] 09-30-2024 17:23-0400 Body mass index (BMI) [Ratio] 40.2 kg/m2 Corin Mariscal MD Work Phone: [facility] 09-30-2024 17:23-0400 Body weight 120.1 kg Corin Mariscal MD Work Phone: [facility] 08-13-2024 15:26-0400 Body height 172.72 cm Corin Mariscal MD Work Phone: [facility] 08-13-2024 15:26-0400 Body weight 127.6 kg Corin Mariscal MD Work Phone: [facility] 08-13-2024 13:40-0400 Body temperature 98.2 [degF] Corin Mariscal MD Work Phone: [facility] 08-13-2024 13:40-0400 Diastolic blood pressure 68 mm[Hg] Corin Mariscal MD Work Phone: [facility] 08-13-2024 13:40-0400 Heart rate 95 /min Corin Mariscal MD Work Phone: [facility] 08-13-2024 13:40-0400 Inhaled oxygen flow rate 2 L/min Corin Mariscal MD Work Phone: [facility] 08-13-2024 13:40-0400 Respiratory rate 14 /min Corin Mariscal MD Work Phone: [facility] 08-13-2024 13:40-0400 SaO2% (BldA) [Mass fraction] 90 % Corin Mariscal MD Work Phone: [facility] 08-13-2024 13:40-0400 Systolic blood pressure 133 mm[Hg] Corin Mariscal MD Work Phone: [facility] 08-13-2024 04:00-0400 Body mass index (BMI) [Ratio] 42.6 kg/m2 Corin Mariscal MD Work Phone: [facility] 08-09-2024 20:59-0500 Body temperature 98.2 [degF] Corin Mariscal MD Work Phone: [facility] 08-09-2024 20:59-0500 Diastolic blood pressure 63 mm[Hg] Corin Mariscal MD Work Phone: [facility] 08-09-2024 20:59-0500 Heart rate 93 /min Corin Mariscal MD Work Phone: [facility] 08-09-2024 20:59-0500 Respiratory rate 24 /min Corin Mariscal MD Work Phone: [facility] 08-09-2024 20:59-0500 SaO2% (BldA) [Mass fraction] 96 % Corin Mariscal MD Work Phone: [facility] 08-09-2024 20:59-0500 Systolic blood pressure 142 mm[Hg] Corin Mariscal MD Work Phone: [facility] 08-09-2024 19:16-0500 Inhaled oxygen flow rate 4.5 L/min Corin Mariscal MD Work Phone: [facility] 08-09-2024 17:16-0500 Body height 172.72 cm Corin Mariscal MD Work Phone: [facility] 08-09-2024 17:16-0500 Body mass index (BMI) [Ratio] 36.5 kg/m2 Corin Mariscal MD Work Phone: [facility] 08-09-2024 17:16-0500 Body weight 108.86 kg Corin Mariscal MD Work Phone: [facility] 07-17-2024 16:50-0500 Body temperature 98.8 [degF] Corin Mariscal MD Work Phone: [facility] 07-17-2024 16:50-0500 Diastolic blood pressure 70 mm[Hg] Corin Mariscal MD Work Phone: [facility] 07-17-2024 16:50-0500 Heart rate 88 /min Corin Mariscal MD Work Phone: [facility] 07-17-2024 16:50-0500 Inhaled oxygen flow rate 3 L/min Corin Mariscal MD Work Phone: [facility] 07-17-2024 16:50-0500 Respiratory rate 18 /min Corin Mariscal MD Work Phone: [facility] 07-17-2024 16:50-0500 SaO2% (BldA) [Mass fraction] 98 % Corin Mariscal MD Work Phone: [facility] 07-17-2024 16:50-0500 Systolic blood pressure 144 mm[Hg] Corin Mariscal MD Work Phone: [facility] 07-17-2024 05:34-0500 Body mass index (BMI) [Ratio] 41.6 kg/m2 Corin Mariscal MD Work Phone: [facility] 07-17-2024 05:34-0500 Body weight 124.7 kg Corin Mariscal MD Work Phone: [facility] 07-16-2024 22:58-0500 Inhaled oxygen concentration 30 % Corin Mariscal MD Work Phone: [facility] 07-13-2024 18:19-0500 Body temperature 97.8 [degF] Corin Mariscal MD Work Phone: [facility] 07-13-2024 18:19-0500 Diastolic blood pressure 46 mm[Hg] Corni Mariscal MD Work Phone: [facility] 07-13-2024 18:19-0500 Heart rate 113 /min Coirn Mariscal MD Work Phone: [facility] 07-13-2024 18:19-0500 Respiratory rate 20 /min Corin Mariscal MD Work Phone: [facility] 07-13-2024 18:19-0500 SaO2% (BldA) [Mass fraction] 98 % Corin Mariscal MD Work Phone: [facility] 07-13-2024 18:19-0500 Systolic blood pressure 132 mm[Hg] Corin Mariscal MD Work Phone: [facility] 07-13-2024 17:00-0500 Inhaled oxygen flow rate 3 L/min Corin Mariscal MD Work Phone: [facility] 07-13-2024 14:18-0500 Body mass index (BMI) [Ratio] 42.4 kg/m2 Corin Mariscal MD Work Phone: [facility] 07-13-2024 14:18-0500 Body weight 122.9 kg Corin Mariscal MD Work Phone: [facility] 08-18-2023 23:12-0400 Body temperature 98.1 [degF] Dr. Bernardino Moran Work Phone: [facility] 08-18-2023 23:12-0400 Diastolic blood pressure 64 mm[Hg] Dr. Bernardino Moran Work Phone: [facility] 08-18-2023 23:12-0400 Heart rate 88 /min Dr. Bernardino Moran Work Phone: [facility] 08-18-2023 23:12-0400 Respiratory rate 14 /min Dr. Bernardino Moran Work Phone: [facility] 08-18-2023 23:12-0400 SaO2% (BldA) [Mass fraction] 94 % Dr. Bernardino Moran Work Phone: [facility] 08-18-2023 23:12-0400 Systolic blood pressure 108 mm[Hg] Dr. Bernardino Moran Work Phone: [facility] 08-18-2023 21:27-0400 Inhaled oxygen flow rate 2 L/min Dr. Bernardino Moran Work Phone: [facility] 08-18-2023 19:19-0400 Body height 170.[address] Bernardino Moran Work Phone: [facility] 08-13-2023 20:51-0400 Body temperature 97.7 [degF] Brandon Bean MD Work Phone: [facility] 08-13-2023 20:51-0400 Diastolic blood pressure 92 mm[Hg] Brandon Bean MD Work Phone: [facility] 08-13-2023 20:51-0400 Heart rate 119 /min Brandon Bean MD Work Phone: [facility] 08-13-2023 20:51-0400 Respiratory rate 18 /min Brandon Bean MD Work Phone: [facility] 08-13-2023 20:51-0400 SaO2% (BldA) [Mass fraction] 97 % Brandon Bean MD Work Phone: [facility] 08-13-2023 20:51-0400 Systolic blood pressure 134 mm[Hg] Brandon Bean MD Work Phone: [facility] 07-12-2023 13:39-0500 Diastolic blood pressure 69 mm[Hg] Dr. Bernardino Moran Work Phone: [facility] 07-12-2023 13:39-0500 Heart rate 97 /min Dr. Bernardino Morna Work Phone: [facility] 07-12-2023 13:39-0500 Respiratory rate 18 /min Dr. Bernardino Moran Work Phone: [facility] 07-12-2023 13:39-0500 SaO2% (BldA) [Mass fraction] 99 % Dr. Bernardino Moran Work Phone: [facility] 07-12-2023 13:39-0500 Systolic blood pressure 104 mm[Hg] Dr. Bernardino Moran Work Phone: [facility] 07-12-2023 09:55-0500 Body height 170.[address] Bernardino Moran Work Phone: [facility] 07-12-2023 09:55-0500 Body mass index (BMI) [Ratio] 38.3 kg/m2 Dr. Bernardino Moran Work Phone: [facility] 07-12-2023 09:55-0500 Body temperature 98.2 [degF] Dr. Bernardino Moran Work Phone: [facility] 07-12-2023 09:55-0500 Body weight [address] Bernardino Moran Work Phone: [facility] 07-12-2023 09:55-0500 Inhaled oxygen flow rate 3 L/min Dr. Bernardino Moran Work Phone: [facility] 07-05-2023 12:44-0500 Body weight 112.5 kg Annika Collado MD, PhD Work Phone: [facility] 07-05-2023 12:44-0500 Diastolic blood pressure 85 mm[Hg] Annika Collado MD, PhD Work Phone: [facility] 07-05-2023 12:44-0500 Heart rate 102 /min Annika Collado MD, PhD Work Phone: [facility] 07-05-2023 12:44-0500 SaO2% (BldA) [Mass fraction] 93 % Annika Collado MD, PhD Work Phone: [facility] 07-05-2023 12:44-0500 Systolic blood pressure 114 mm[Hg] Annika Collado MD, PhD Work Phone: [facility] 06-29-2023 08:23-0500 Body mass index (BMI) [Ratio] 37.5 kg/m2 Dr. Bernardino Moran Work Phone: [facility] 06-29-2023 08:23-0500 Body temperature 98 [degF] Dr. Bernardino Moran Work Phone: [facility] 06-29-2023 08:23-0500 Body weight 112.[address] Bernardino Moran Work Phone: [facility] 06-29-2023 08:23-0500 Diastolic blood pressure 82 mm[Hg] Dr. Bernardino Moran Work Phone: [facility] 06-29-2023 08:23-0500 Heart rate 111 /min Dr. Bernardino Moran Work Phone: [facility] 06-29-2023 08:23-0500 Inhaled oxygen flow rate 3 L/min Dr. Bernardino Moran Work Phone: [facility] 06-29-2023 08:23-0500 Respiratory rate 18 /min Dr. Bernardino Moran Work Phone: [facility] 06-29-2023 08:23-0500 SaO2% (BldA) [Mass fraction] 96 % Dr. Bernardino Moran Work Phone: [facility] 06-29-2023 08:23-0500 Systolic blood pressure 137 mm[Hg] Dr. Bernardino Moran Work Phone: [facility] 03-15-2023 11:15-0400 Body height 172.[address] Bernardino Moran Work Phone: [facility] 03-15-2023 11:15-0400 Body weight 107.[address] Bernardino Moran Work Phone: [facility] 03-15-2023 11:15-0400 Heart rate 89 /min Dr. Bernardino Moran Work Phone: 0(719)[phone] [place] [address] 03-15-2023 11:15-0400 Inhaled oxygen flow rate 3 L/min Dr. Bernardino Moran Work Phone: 0(410)[phone] [place] [address] 03-15-2023 11:15-0400 SaO2% (BldA) [Mass fraction] 92 % Dr. Bernardino Moran Work Phone: 5(980)[phone] [place] [address] 03-05-2023 05:37-0400 Body mass index (BMI) [Ratio] 36.6 kg/m2 Dr. Bernardino Moran Work Phone: 8(863)[phone] [place] [address] 03-05-2023 05:37-0400 Body temperature 97.4 [degF] Dr. Bernardino Moran Work Phone: [facility] 03-05-2023 05:37-0400 Body weight 109.[address] Bernardino Moran Work Phone: [facility] 03-05-2023 05:37-0400 Diastolic blood pressure 62 mm[Hg] Dr. Bernardino Moran Work Phone: 0(386)[phone] [place] [address] 03-05-2023 05:37-0400 Heart rate 99 /min Dr. Bernardino Moran Work Phone: [facility] 03-05-2023 05:37-0400 Inhaled oxygen flow rate 3 L/min Dr. Bernardino Moran Work Phone: [facility] 03-05-2023 05:37-0400 Respiratory rate 18 /min Dr. Bernardino Moran Work Phone: [facility] 03-05-2023 05:37-0400 SaO2% (BldA) [Mass fraction] 95 % Dr. Bernardino Moran Work Phone: [facility] 03-05-2023 05:37-0400 Systolic blood pressure 139 mm[Hg] Dr. Bernardino Moran Work Phone: [facility] 02-15-2023 11:50-0400 Body height 172.7 cm Bernardino Moran MD Work Phone: [facility] 02-15-2023 11:50-0400 Body mass index (BMI) [Ratio] 36.43 kg/m2 Bernardino Moran MD Work Phone: [facility] 02-15-2023 11:50-0400 Body weight 108.68 kg Bernardino Moran MD Work Phone: [facility] 02-15-2023 11:50-0400 Diastolic blood pressure 53 mm[Hg] Bernardino Moran MD Work Phone: [facility] 02-15-2023 11:50-0400 Heart rate 65 /min Bernardino Moran MD Work Phone: [facility] 02-15-2023 11:50-0400 SaO2% (BldA) [Mass fraction] 94 % Bernardino Moran MD Work Phone: [facility] 02-15-2023 11:50-0400 Systolic blood pressure 96 mm[Hg] Bernardino Moran MD Work Phone: [facility] 01-04-2023 11:27-0400 Body height 172.[address] Bernardino Moran Work Phone: [facility] 01-04-2023 11:27-0400 Body mass index (BMI) [Ratio] 34.9 kg/m2 Dr. Bernardino Moran Work Phone: [facility] 01-04-2023 11:27-0400 Body temperature 98.9 [degF] Dr. Bernardino Moran Work Phone: [facility] 01-04-2023 11:27-0400 Body weight 104.[address] Bernardino Moran Work Phone: [facility] 01-04-2023 11:27-0400 Heart rate 107 /min Dr. Bernardino Moran Work Phone: [facility] 01-04-2023 11:27-0400 Respiratory rate 16 /min Dr. Bernardino Moran Work Phone: [facility] 01-04-2023 11:27-0400 SaO2% (BldA) [Mass fraction] 96 % Dr. Bernardino Moran Work Phone: [facility] 01-04-2023 10:58-0400 Body mass index (BMI) [Ratio] 35.9 kg/m2 Dr. Bernardino Moran Work Phone: [facility] 01-04-2023 10:58-0400 Body temperature 98.7 [degF] Dr. Bernardino Moran Work Phone: [facility] 01-04-2023 10:58-0400 Body weight 107.[address] Bernardino Moran Work Phone: [facility] 01-04-2023 10:58-0400 Diastolic blood pressure 82 mm[Hg] Dr. Bernardino Moran Work Phone: [facility] 01-04-2023 10:58-0400 Heart rate 109 /min Dr. Bernardino Moran Work Phone: [facility] 01-04-2023 10:58-0400 Respiratory rate 20 /min Dr. Bernardino Moran Work Phone: [facility] 01-04-2023 10:58-0400 SaO2% (BldA) [Mass fraction] 85 % Dr. Bernardino Moran Work Phone: [facility] 01-04-2023 10:58-0400 Systolic blood pressure 150 mm[Hg] Dr. Bernardino Moran Work Phone: [facility] 07-16-2022 19:48-0500 Body temperature 98 [degF] Dr. Bernardino Moran Work Phone: [facility] 07-16-2022 19:48-0500 Diastolic blood pressure 92 mm[Hg] Dr. Bernardino Moran Work Phone: [facility] 07-16-2022 19:48-0500 Heart rate 105 /min Dr. Bernardino Moran Work Phone: [facility] 07-16-2022 19:48-0500 Inhaled oxygen flow rate 3 L/min Dr. Bernardino Moran Work Phone: [facility] 07-16-2022 19:48-0500 Respiratory rate 18 /min Dr. Bernardino Moran Work Phone: [facility] 07-16-2022 19:48-0500 SaO2% (BldA) [Mass fraction] 95 % Dr. Bernardino Moran Work Phone: [facility] 07-16-2022 19:48-0500 Systolic blood pressure 156 mm[Hg] Dr. Bernardino Moran Work Phone: [facility] 07-16-2022 17:28-0500 Body height 170.[address] Bernardino Moran Work Phone: [facility] 07-16-2022 17:28-0500 Body mass index (BMI) [Ratio] 35.5 kg/m2 Dr. Bernardino Moran Work Phone: [facility] 07-16-2022 17:28-0500 Body weight 102.[address] Bernardino Moran Work Phone: [facility] 06-07-2022 10:53-0500 Diastolic blood pressure 92 mm[Hg] Bernardino Mroan MD Work Phone: [facility] 06-07-2022 10:53-0500 Systolic blood pressure 156 mm[Hg] Bernardino Moran MD Work Phone: [facility] 06-07-2022 10:11-0500 Body height 172.7 cm Bernardino Moran MD Work Phone: [facility] 06-07-2022 10:11-0500 Body mass index (BMI) [Ratio] 32.99 kg/m2 Bernardino Moran MD Work Phone: [facility] 06-07-2022 10:11-0500 Body weight 98.43 kg Bernardino Moran MD Work Phone: [facility] 06-07-2022 10:11-0500 Heart rate 115 /min Bernardino Moran MD Work Phone: [facility] 06-07-2022 10:11-0500 SaO2% (BldA) [Mass fraction] 95 % Bernardino Moran MD Work Phone: [facility] 04-19-2022 11:10-0500 Body height 170.[address] Bernardino Moran Work Phone: [facility] 04-19-2022 11:10-0500 Body mass index (BMI) [Ratio] 31.6 kg/m2 Dr. Bernardino Moran Work Phone: [facility] 04-19-2022 11:10-0500 Body weight 91.[address] Bernardino Moran Work Phone: [facility] 04-17-2022 10:34-0500 Body temperature 98.4 [degF] Dr. Bernardino Moran Work Phone: [facility] 04-17-2022 10:34-0500 Diastolic blood pressure 72 mm[Hg] Dr. Bernardino Moran Work Phone: [facility] 04-17-2022 10:34-0500 Heart rate 104 /min Dr. Bernardino Moran Work Phone: [facility] 04-17-2022 10:34-0500 Respiratory rate 14 /min Dr. Bernardino Moran Work Phone: [facility] 04-17-2022 10:34-0500 SaO2% (BldA) [Mass fraction] 98 % Dr. Bernardino Moran Work Phone: [facility] 04-17-2022 10:34-0500 Systolic blood pressure 128 mm[Hg] Dr. Bernardino Moran Work Phone: [facility] 03-15-2022 12:42-0400 Body height 170.[address] Bernardino Moran Work Phone: [facility] Work Phone: 03-15-2022 12:42-0400 Body mass index (BMI) [Ratio] 34.4 kg/m2 Dr. Bernardino Moran Work Phone: [facility] 03-15-2022 12:42-0400 Body temperature 98.2 [degF] Dr. Bernardino Moran Work Phone: [facility] 03-15-2022 12:42-0400 Body weight 99.[address] Bernardino Moran Work Phone: [facility] 03-15-2022 12:42-0400 Diastolic blood pressure 67 mm[Hg] Dr. Bernardino Moran Work Phone: [facility] 03-15-2022 12:42-0400 Heart rate 88 /min Dr. Bernardino Moran Work Phone: [facility] 03-15-2022 12:42-0400 Inhaled oxygen flow rate 3 L/min Dr. Bernardino Moran Work Phone: [facility] 03-15-2022 12:42-0400 Respiratory rate 16 /min Dr. Bernardino Moran Work Phone: [facility] 03-15-2022 12:42-0400 SaO2% (BldA) [Mass fraction] 100 % Dr. Bernardino Moran Work Phone: [facility] 03-15-2022 12:42-0400 Systolic blood pressure 90 mm[Hg] Dr. Bernardino Moran Work Phone: [facility] 12-31-2021 09:50-0400 Body temperature 98.2 [degF] Dr. Bernardino Moran Work Phone: [facility] Work Phone: 12-31-2021 09:50-0400 Diastolic blood pressure 53 mm[Hg] Dr. Bernardino Moran Work Phone: [facility] Work Phone: 12-31-2021 09:50-0400 Heart rate 74 /min Dr. Bernardino Moran Work Phone: [facility] Work Phone: 12-31-2021 09:50-0400 Respiratory rate 15 /min Dr. Bernardino Moran Work Phone: [facility] Work Phone: 12-31-2021 09:50-0400 SaO2% (BldA) [Mass fraction] 99 % Dr. Bernardino Moran Work Phone: [facility] Work Phone: 12-31-2021 09:50-0400 Systolic blood pressure 105 mm[Hg] Dr. Bernardino Moran Work Phone: [facility] Work Phone: 12-31-2021 04:53-0400 Body weight [address] Bernardino Moran Work Phone: [facility] Work Phone: 12-30-2021 11:03-0400 Body height 172.[address] Bernardino Moran Work Phone: [facility] Work Phone: 12-29-2021 22:44-0400 Body mass index (BMI) [Ratio] 32.3 kg/m2 Dr. Bernardino Moran Work Phone: [facility] Work Phone: 10-15-2021 15:54-0400 Body height 172.[address] Bernardino Moran Work Phone: [facility] Work Phone: 10-15-2021 15:54-0400 Body mass index (BMI) [Ratio] 34.9 kg/m2 Dr. Bernardino Moran Work Phone: [facility] Work Phone: 10-15-2021 15:54-0400 Body temperature 98.8 [degF] Dr. Bernardino Moran Work Phone: [facility] Work Phone: 10-15-2021 15:54-0400 Body weight 104.[address] Bernardino Moran Work Phone: [facility] Work Phone: 10-15-2021 15:54-0400 Diastolic blood pressure 96 mm[Hg] Dr. Bernardino Moran Work Phone: [facility] Work Phone: 10-15-2021 15:54-0400 Heart rate 83 /min Dr. Bernardino Moran Work Phone: [facility] Work Phone: 10-15-2021 15:54-0400 Respiratory rate 16 /min Dr. Bernardino Moran Work Phone: [facility] Work Phone: 10-15-2021 15:54-0400 SaO2% (BldA) [Mass fraction] 91 % Dr. Bernardino Moran Work Phone: [facility] Work Phone: 10-15-2021 15:54-0400 Systolic blood pressure 127 mm[Hg] Dr. Bernardino Moran Work Phone: [facility] Work Phone: 08-03-2021 15:43-0500 Body mass index (BMI) [Ratio] 36.5 kg/m2 Dr. Bernardino Moran Work Phone: [facility] Work Phone: 08-03-2021 15:43-0500 Body temperature 97.3 [degF] Dr. Bernardino Moran Work Phone: [facility] Work Phone: 08-03-2021 15:43-0500 Body weight 105.[address] Bernardino Moran Work Phone: [facility] Work Phone: 08-03-2021 15:43-0500 Diastolic blood pressure 78 mm[Hg] Dr. Bernardino Moran Work Phone: [facility] Work Phone: 08-03-2021 15:43-0500 Heart rate 103 /min Dr. Bernardino Moran Work Phone: [facility] Work Phone: 08-03-2021 15:43-0500 Respiratory rate 15 /min Dr. Bernardino Moran Work Phone: [facility] Work Phone: 08-03-2021 15:43-0500 SaO2% (BldA) [Mass fraction] 91 % Dr. Bernardino Moran Work Phone: [facility] Work Phone: 08-03-2021 15:43-0500 Systolic blood pressure 116 mm[Hg] Dr. Bernardino Moran Work Phone: [facility] Work Phone: 07-22-2021 13:50-0500 Body temperature 98.2 [degF] Dr. Bernardino Moran Work Phone: [facility] Work Phone: 07-22-2021 13:50-0500 Diastolic blood pressure 92 mm[Hg] Dr. Bernardino Moran Work Phone: [facility] Work Phone: 07-22-2021 13:50-0500 Heart rate 96 /min Dr. Bernardino Moran Work Phone: [facility] Work Phone: 07-22-2021 13:50-0500 Respiratory rate 18 /min Dr. Bernardino Moran Work Phone: [facility] Work Phone: 07-22-2021 13:50-0500 SaO2% (BldA) [Mass fraction] 95 % Dr. Bernardino Moran Work Phone: [facility] Work Phone: 07-22-2021 13:50-0500 Systolic blood pressure 152 mm[Hg] Dr. Bernardino Moran Work Phone: [facility] Work Phone: 07-19-2021 12:27-0500 Body mass index (BMI) [Ratio] 38.9 kg/m2 Dr. Bernardino Moran Work Phone: [facility] Work Phone: 07-19-2021 12:27-0500 Body weight 112.[address] Bernardino Moran Work Phone: [facility] Work Phone: 08-26-2020 10:41-0400 BMI (Body Mass Index) 41.92 kg/m2 [employer] Work Phone: 08-26-2020 10:41-0400 Body weight 125.06 kg [employer] Work Phone: 08-26-2020 10:41-0400 BP Diastolic 77 mm[Hg] [employer] Work Phone: 08-26-2020 10:41-0400 BP Systolic 142 mm[Hg] Janna GALLO Work Phone: 08-26-2020 10:41-0400 Height 172.7 cm Janna GALLO Work Phone: 08-26-2020 10:41-0400 Pulse (Heart Rate) 97 /min Janna GALLO Work Phone: 08-26-2020 10:41-0400 Pulse Oximetry 96 % Janna GALLO Work Phone: 08-26-2020 07:40-0400 Body Temperature 97.9 [degF] Janna GALLO Work Phone: 08-26-2020 07:40-0400 Respiratory Rate 22 /min Janna GALLO Work Phone: 07-14-2020 12:37-0500 Body Temperature 98.2 [degF] [facility] [place] 07-14-2020 12:37-0500 BP Diastolic 79 mm[Hg] [facility] [place] 07-14-2020 12:37-0500 BP Systolic 124 mm[Hg] [facility] [place] 07-14-2020 12:37-0500 Pulse (Heart Rate) 84 /min [facility] [place] 07-14-2020 12:37-0500 Pulse Oximetry 98 % [facility] [place] 07-14-2020 12:37-0500 Respiratory Rate 18 /min [facility] [place] 07-06-2020 15:50-0500 BMI (Body Mass Index) 41.05 kg/m2 [facility] 07-06-2020 15:50-0500 Body weight 122.47 kg [facility] [place] 07-06-2020 15:50-0500 Height 172.7 cm [facility] [place] 10-26-2019 13:01-0400 Pulse Oximetry 97 % [facility] [place] 10-26-2019 09:40-0400 Respiratory Rate 16 /min [facility] [place] 10-26-2019 09:29-0400 Body Temperature 96.69 [degF] [facility] [place] [place] 10-26-2019 09:29-0400 BP Diastolic 92 mm[Hg] [facility], [place] 10-26-2019 09:29-0400 BP Systolic 128 mm[Hg] [facility] 10-26-2019 09:29-0400 Pulse (Heart Rate) 111 /min [facility] 10-24-2019 17:07-0400 BMI (Body Mass Index) 38.92 kg/m2 [facility] [place] 10-24-2019 17:07-0400 Body weight 116.12 kg [facility] 10-24-2019 17:07-0400 Height 172.7 cm [facility] 07-25-2019 11:50-0500 BP Diastolic 71 mm[Hg] [facility], [place] 07-25-2019 11:50-0500 BP Systolic 108 mm[Hg] [facility] 07-25-2019 11:50-0500 Pulse (Heart Rate) 82 /min [facility], [place] 07-25-2019 11:50-0500 Pulse Oximetry 99 % [facility] 07-25-2019 11:50-0500 Respiratory Rate 18 /min [facility], [place] 07-25-2019 10:35-0500 BMI (Body Mass Index) 39.68 kg/m2 [facility], [place] 07-25-2019 10:35-0500 Body Temperature 97.3 [degF] [facility] 07-25-2019 10:35-0500 Body weight 118.39 kg [employer], [place] 07-25-2019 10:35-0500 Height 172.7 cm [facility] 03-08-2017 11:21-0400 Body Temperature 97.5 [degF] [facility] Work Phone: 03-08-2017 11:21-0400 BP Diastolic 82 mm[Hg] [facility] Work Phone: 03-08-2017 11:21-0400 BP Systolic 126 mm[Hg] [facility] Work Phone: 03-08-2017 11:21-0400 Pulse (Heart Rate) 16 /min Elizabeth [facility]EN [facility] Work Phone: 03-08-2017 11:21-0400 Respiratory Rate 16 /min Elizabeth ADEN [facility] Work Phone: Encounters Encounter Date Encounter Type Care Provider Facility Start: 04-13-2025 End: 04-13-2025 Emergency department patient visit Addison Chi Nick Facility:[facility] Start: 03-24-2025 ambulatory Addison Chi Nick [facility] Start: 02-26-2025 End: 02-26-2025 ambulatory Addison Chi Nick Facility:[facility] Start: 02-16-2025 End: 02-16-2025 ambulatory Addison Chi Nick Facility:[facility] Start: 02-16-2025 End: 02-16-2025 ambulatory Addison Chi Nick Facility:[facility] Start: 01-09-2025 ambulatory Chalon Clinton [facility] Start: 01-05-2025 End: 01-05-2025 Emergency department patient visit Addison Chi Nick Facility:[facility] Start: 12-11-2024 ambulatory Addison Chi Nick Facility:[facility] Start: 12-11-2024 ambulatory Addison Chi Nick Facility:[facility] Start: 12-08-2024 ambulatory Chalon Clinton [facility] Start: 12-04-2024 End: 12-04-2024 ambulatory Addison Chi Nick Facility:[facility] Start: 11-24-2024 End: 11-24-2024 ambulatory Chalon Clinton Facility:[facility] Start: 11-20-2024 End: 11-20-2024 ambulatory Chalon Clinton Facility:[facility] Start: 11-10-2024 ambulatory Chalon Clinton [facility] Start: 11-10-2024 End: 11-20-2024 Evaluation and management of inpatient Chalon Clinton Facility:[facility] Start: 11-10-2024 Dr. Blayne Santana DO -[facility] Work Phone: Start: 11-09-2024 Dr. Blayne Santana DO -[facility] Work Phone: Start: 11-08-2024 Dr. Blayne Santana DO -[facility] Work Phone: Start: 11-07-2024 End: 11-10-2024 Evaluation and management of inpatient Corin Mariscal MD Work Phone: [facility] Work Phone: Start: 11-07-2024 ambulatory Kaitlyn Winkler [facility] Start: 11-07-2024 End: 11-10-2024 Dr. Kaitlyn Winkler DO -Progressive Care Un it Work Phone: Start: 11-06-2024 ambulatory Paramjitjagdish Clinton Facility:[facility] Start: 10-29-2024 [facility] Start: 10-21-2024 End: 10-21-2024 Dr. Corin Mariscal MD -Medical Out Work Phone: Start: 10-21-2024 End: 10-21-2024 ambulatory Corin Mariscal MD Work Phone: [facility] Work Phone: Start: 10-16-2024 End: 10-17-2024 Telephone encounter Jose Dennison DO Work Phone: Hematology/Oncology Comment on above: Results Start: 10-15-2024 End: 10-15-2024 Patient encounter procedure Jose A Masci DO Work Phone: Hematology/Oncology Start: 10-15-2024 End: 10-15-2024 ambulatory Jose Dennison DO Work Phone: Hematology/Oncology Comment on above: Thrombocytopenia, se condary (Primary Dx) Start: 10-14-2024 End: 10-14-2024 Dr. Corin Mariscal MD -Medical Out Work Phone: Start: 10-14-2024 End: 10-14-2024 ambulatory Corin Mariscal MD Work Phone: [facility] Work Phone: Start: 10-07-2024 ambulatory Chalon Clinton [facility] Start: 09-30-2024 End: 09-30-2024 Dr. Junior Salter MD -Emergency Departmen t Work Phone: Start: 09-30-2024 End: 09-30-2024 Emergency department patient visit Junior Salter Facility:[facility] Start: 08-19-2024 End: 08-19-2024 ambulatory Corin Mariscal MD Work Phone: [facility] Work Phone: Start: 08-19-2024 End: 08-19-2024 Dr. Corin Mariscal MD -Laboratory, [facility] Start: 08-19-2024 End: 08-19-2024 ambulatory Chalon Clinton Facility:[facility] Start: 08-13-2024 Dr. Thong Sultana MD -[facility] Work Phone: Start: 08-13-2024 ambulatory Chalon Clinton [facility] Start: 08-12-2024 Dr. Vamsi Mendoza DO -[facility] Work Phone: Start: 08-11-2024 ambulatory Chalon Clinton [facility] Start: 08-11-2024 End: 08-13-2024 Evaluation and management of inpatient Chalon Clinton Facility:[facility] Start: 08-11-2024 End: 08-13-2024 Dr. Thong Sultana MD -Medical Surgical 3 Work Phone: Start: 08-11-2024 Dr. Beck Lee MD -[facility] In[facility]icians Work Phone: Start: 08-10-2024 Dr. Beck Lee MD -[facility] Work Phone: Start: 08-09-2024 ambulatory [facility] Start: 08-09-2024 Evaluation and management of inpatient Dr. Mckenzie Austin MD -[facility] Surgical 3 Work Phone: Start: 08-09-2024 observation encounter Corin amezquita MD Work Phone: [facility] Work Phone: Start: 08-09-2024 Dr. Mckenzie Austin MD - [facility] Work Phone: Start: 07-24-2024 ambulatory [facility] Facility:[facility] Start: 07-24-2024 End: 07-24-[address] Corin Mariscal MD -Laboratory, [facility] Start: 07-24-2024 End: 07-24-2024 Dr. Corin Mariscal MD -Laboratory, [facility] Start: 07-24-2024 End: 07-24-2024 ambulatory [facility] Facility:[facility] Start: 07-17-2024 Non-patient / Non-visit Dr. Libby Sultana MD -[facility] Work Phone: Start: 07-17-2024 Dr. Thong Sultana MD -[facility] Work Phone: Start: 07-16-2024 Non-patient / Non-visit Dr. Libby Sultana MD -[facility] Work Phone: Start: 07-16-2024 Dr. Thong Sultana MD -[facility] Work Phone: Start: 07-15-2024 ambulatory [facility] Start: 07-15-2024 End: 07-17-2024 Evaluation and management of inpatient Dr. Thong Sultana MD -Medical Surgical 3 Work Phone: Start: 07-15-2024 End: 07-17-2024 Dr. Thong Sultana MD -Medical Surgical 3 Work Phone: Start: 07-13-2024 End: 07-13-2024 Dr. [facility] Work [facility]: Start: 07-13-2024 End: 07-13-2024 Emergency department patient visit Dr. Kendall Dsouza MD -Emergency Department Work Phone: Start: 06-20-2024 End: 06-20-2024 ambulatory Willow Baez RN NURSE DEVELOPMENT EXPERT Comment on above: Covid19 Concern Start: 10-18-2023 Refill Bernardino Moran MD Work Phone: [facility] Start: 08-18-2023 End: 08-19-2023 Emergency department patient visit Dr. Bernardino Moran Work Phone: [facility]-Emergency Department Work Phone: Start: 08-18-2023 End: 01-04-2025 Telephone encounter Eliazar Sanchez MD Work Phone: [facility] Clinical Communication Comment on above: page out Start: 08-17-[address] Damon Moran Work Phone: [facility] Start: 08-14-[address] Damon Moran Work Phone: [facility] Start: 08-09-2023 End: 08-09-2023 Evaluation and management of inpatient Leticia Hector APRN - [employer] Work Phone: [facility] Start: 08-09-2023 End: 08-13-2023 Evaluation and management of inpatient Brandon Bean MD Work Phone: [facility] Surgical Progressive Care Unit PCU H6 Comment on above: Lumbar radiculopathy (Primary Dx); Suspected deep vein thrombosis (DVT); COPD exacerbation (HCC); Other pancytopenia (CMS/HCC) (HCC); Chronic hypoxemic respiratory failure (HCC); Hypertensive heart and chronic kidney disease with heart failure and stage 1 through stage 4 chronic kidney disease, or unspecified chronic kidney disease (HCC); 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 Bernardino Moran Work Phone: [facility]-Emergency Department Work Phone: Start: 07-06-2023 Telephone encounter Amy montoya MD Work Phone: [facility] Comment on above: FAST TACK Start: 07-05-2023 End: 07-05-2023 ambulatory JOSH Green CARO Facility:[facility] Start: 07-05-2023 End: 07-05-2023 Patient encounter procedure Annika Collado MD, PhD Work Phone: [facility] Comment on above: Radiculopathy of lum bar region (Primary Dx) Start: 06-29-2023 End: 06-29-[address] Bernardino Moran Work Phone: [facility]-Pulmonary Medicine [facility] Work Phone: Start: 06-28-2023 Refill Yessi foreman GEAR SETTER - [employer] Work Phone: [facility] Start: 06-18-2023 End: 06-18-[address] Bernardino Moran Work Phone: [facility] Work Phone: Start: 06-18-2023 End: 06-18-[address] Bernardino Moran Work Phone: [facility]-Laboratory, [place] Work Phone: Start: 05-06-2023 Refill Terri Garcia GEAR SETTER - [employer] Work Phone: [facility] Start: 04-30-2023 End: 04-30-[address] Bernardino Moran Work Phone: [facility] Work Phone: Start: 04-30-2023 End: 04-30-[address] Bernardino Moran Work Phone: [facility]-Sleep Lab Work Phone: Start: 04-14-2023 Giselle Moran MD Work Phone: [facility] Start: 03-21-2023 End: 03-21-[address] Bernardino oMran Work Phone: [facility] Work Phone: Start: 03-21-2023 End: 03-21-[address] Bernardino Moran Work Phone: [facility]-Sleep Lab Work Phone: Start: 03-21-2023 Non-patient / Non-visit Dr. Cerna Work Phone: [facility] Start: 03-20-2023 End: 03-20-[address] Bernardino Moran Work Phone: [facility]-Pulmonary Services/Neurology Work Phone: Start: 03-18-2023 Giselle Moran MD Work Phone: [facility] Start: 03-15-2023 Non-patient / Non-visit Dr. Cerna Work Phone: [facility] Start: 03-15-2023 End: 03-15-[address] Bernardino Moran Work Phone: [facility]-Pulmonary Services/Neurology Work Phone: Start: 03-13-2023 Refill Bernardino Moran MD Work Phone: [facility] Start: 03-09-2023 Refill Bernardino Moran MD Work Phone: [facility] Start: 03-05-2023 End: 03-05-[address] Bernardino Moran Work Phone: [facility]-Pulmonary Medicine [facility] Work Phone: Start: 02-27-[address] Denny Moran Work Phone: [facility]-Physical Therapy Work Phone: Start: 02-18-2023 Refill Bernardino Moran MD Work Phone: [facility] Start: 02-15-2023 End: 02-15-2023 ambulatory BERNARDINO MORAN [facility] Start: 02-15-2023 End: 02-15-2023 Office outpatient visit 25 minutes Bernardino Moran MD Work Phone: [facility] Comment on above: Chronic insomnia (Pr imary Dx); Morbid (severe) obesity due to excess calories (HCC); Chronic hypoxemic respiratory failure (CMS/HCC) (HCC); Other pancytopenia (CMS/HCC) (HCC); Essential hypertension; Gastroesophageal reflux disease without esophagitis; Current moderate episode of major depressive disorder without prior episode (HCC); Anxiety; Pure hypercholesterolemia; Ataxia; Weakness of both lower extremities Start: 01-04-2023 End: 01-04-2023 Emergency department patient visit Dr. Bernardino Moran Work Phone: [facility]-Emergency Department Work Phone: Start: 01-04-2023 End: 01-04-[address] Bernardino Moran Work Phone: [facility] Work Phone: Start: 12-25-2022 End: 12-25-2022 ambulatory BERNARDINO OMRAN [facility] Start: 12-15-2022 Refill Terri Garcia APRN - [employer] Work Phone: [facility] Start: 11-27-2022 Refill Bernardino Moran MD Work Phone: [facility] Start: 11-17-2022 Refill Bernardino Moran MD Work Phone: [facility] Comment on above: Chronic hypoxemic re spiratory failure (CMS/HCC) (HCC) Start: 09-22-2022 Refill Bernardino Moran MD Work Phone: [facility] Start: 08-29-2022 End: 08-29-2022 Office outpatient visit 25 minutes Bernardino Moran MD Work Phone: [facility] Comment on above: Recurrent major depr essive disorder, in partial remission (HCC) (Primary Dx); Chronic insomnia; Forgetfulness; Anxiety Start: 08-18-2022 Telephone encounter Bernardino Monzon MD Work Phone: [facility] Comment on above: Med Refill Start: 08-15-2022 [facility] Start: 08-15-2022 Patient encounter procedure [facility] Start: 07-16-2022 Non-patient / Non-visit Dr. Cerna Work Phone: [facility] Inpatient Physicians Start: 07-16-2022 Evaluation and management of inpatient Dr. Bernardino Moran Work Phone: [facility]-Medical Surgical 3 Start: 07-04-2022 Giselle Moran MD Work Phone: [facility] Start: 06-23-2022 End: 06-23-[address] Bernardino Moran Work Phone: [facility] Work Phone: Start: 06-23-2022 End: 06-23-[address] Bernardino Moran Work Phone: [facility]-Outpatient Breast Imaging Start: 06-07-2022 End: 06-07-2022 Patient encounter procedure Bernardino Moran MD Work Phone: [facility] Comment on above: Essential hypertensi on (Primary Dx); Medicare annual wellness visit, initial; Dementia 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; Chronic insomnia; Mild intermittent asthma without complication; GENNARO (obstructive sleep apnea); Gastroesophageal reflux disease without esophagitis; Stage 1 chronic kidney disease; Pure hypercholesterolemia; Anxiety; Current moderate episode of major depressive disorder without prior episode (HCC); Urinary frequency; Bronchitis; Screening for diabetes mellitus; Hematoma (nontraumatic) of breast Start: 06-02-2022 Refill Terri Garcia GEAR SETTER - [employer] Work Phone: [facility] Start: 04-19-2022 End: 04-19-[address] Bernardino Moran Work Phone: [facility]opaedic Specia Start: 04-17-2022 End: 04-17-[address] Bernardino Moran Work Phone: [facility] Start: 03-15-2022 End: 03-15-2022 Emergency department patient visit Dr. Bernardino Moran Work Phone: [facility]-Emergency Department Start: 12-31-2021 Non-patient / Non-visit Dr. Cerna Work Phone: [facility] Inpatient Physicians Start: 12-30-2021 Non-patient / Non-visit Dr. Cerna Work Phone: [facility] Start: 12-29-2021 End: 12-31-2021 Evaluation and management of inpatient Dr. Bernardino Moran Work Phone: [facility]-Progressive Care Unit Start: 12-29-2021 Non-patient / Non-visit Dr. Cerna Work Phone: [facility] Start: 10-15-2021 End: 10-15-2021 Emergency department patient visit Dr. Bernardino Moran Work Phone: [facility]-Emergency Department Start: 08-03-2021 End: 08-03-2021 Emergency department patient visit Dr. Bernardino Moran Work Phone: [facility]-Emergency Department Start: 08-03-2021 End: 08-03-[address] Bernardino Moran Work Phone: [facility]-Cardiovascula r Services Start: 07-22-2021 Non-patient / Non-visit Dr. Cerna Work Phone: [facility]patient [facility]icians Start: 07-21-2021 Non-patient / Non-visit Dr. Cerna Work Phone: [facility] Start: 07-20-2021 Non-patient / Non-visit Dr. Cerna Work Phone: [facility] Start: 07-19-2021 Non-patient / Non-visit Dr. Cerna Work Phone: [facility] Start: 07-18-2021 Non-patient / Non-visit Dr. Cerna Work Phone: [facility] Start: 07-17-2021 Non-patient / Non-visit Dr. Cerna Work Phone: [facility] Start: 07-17-2021 End: 07-22-2021 Evaluation and management of inpatient Dr. Bernardino Moran Work Phone: [facility]-Medical Surgical 3 Start: 04-24-2021 End: 05-05-2021 Evaluation and management of inpatient VITALY SALOMON Facility:[facility] Start: 04-10-2021 End: 04-20-2021 Evaluation and management of inpatient BERNARDINO MORAN Facility:[facility] Start: 08-24-2020 End: 08-26-2020 Evaluation and management of inpatient Janna Medina Work Phone: [facility] Comment on above: Alcohol withdrawal s yndrome with complication (HCC) (Primary Dx) Start: 07-06-2020 Patient encounter procedure Bernardino Moran Work Phone: [facility] Comment on above: Other (crisis) Start: 06-29-2020 Refill Bernardino Moran Work Phone: [facility] Comment on above: Medication Refill Start: 06-18-2020 Refill Terri Garcia Work Phone: [facility] Comment on above: Medication Refill Start: 06-14-2020 End: 06-14-2020 Office outpatient visit 15 minutes Bernardino Moran Work Phone: [facility] Comment on above: Anxiety (Primary Dx) ; Current moderate episode of major depressive disorder without prior episode (HCC); Other emphysema (HCC); Morbidly obese (HCC) Start: 06-09-2020 Telephone encounter Caprice gallagher Work Phone: [facility] Comment on above: Other ([facility] Referral) Start: 06-08-2020 Telephone encounter Bernardino Monzon Work Phone: [facility] Comment on above: Other (Referral to Braxton Elias) Start: 06-07-2020 Refill Bernardino Moran Work Phone: [facility] Comment on above: Medication Refill Start: 05-31-2020 Subsequent hospital visit by physician Bernardino Weiss Dean Work Phone: [facility] Comment on above: No Show Start: 05-24-2020 Telephone encounter Bernardino Monzon Work Phone: [facility] Comment on above: Other (Lab request) Start: 05-21-2020 Refill Bernardino Moran Work Phone: [facility] Comment on above: Medication Refill Start: 05-20-2020 Telephone encounter Bernardino Monzon Work Phone: [facility] Comment on above: Other (pulmonary silvia ointment) Start: 05-14-2020 Refill Bernardino Moran Work Phone: [facility] Comment on above: Medication Refill Start: 05-10-2020 End: 05-10-2020 Office outpatient visit 25 minutes Bernardino Moran Work Phone: [facility] Comment on above: Depressive disorder (Primary Dx); Anxiety Start: 05-09-2020 Refill Bernardino Moran Work Phone: [facility] Comment on above: Medication Refill Start: 05-07-2020 Patient encounter procedure Yary Pedraza [facility] Clinical Communication Start: 05-03-2020 Telephone encounter Bernardino Monzon Work Phone: [facility] Comment on above: Other (medication do jens) Start: 04-21-2020 Refill Bernardino Moran Work Phone: [facility] Comment on above: Medication Refill Start: 04-16-2020 Telephone encounter Caprice gallagher Work Phone: [facility] Comment on above: Other ([facility] Referral) Start: 04-14-2020 Telephone encounter Bernardino Monzon Work Phone: [facility] Comment on above: Discuss Labs Start: 04-13-2020 Patient encounter procedure Bernardino Moran [facility] [place] [place] Start: 04-13-2020 End: 04-13-2020 Office outpatient visit 25 minutes Bernardino Moran Work Phone: [facility] Comment on above: Current moderate epi sode of major depressive disorder without prior episode (HCC) (Primary Dx); Anxiety; Morbidly obese (HCC); Hyperlipidemia, unspecified hyperlipidemia type; Other emphysema (HCC); Essential hypertension Start: 10-24-2019 End: 10-26-2019 Evaluation and management of inpatient Maycol Arroyo Work Phone: [facility] Comment on above: COPD exacerbation (H CC) (Primary Dx); Tachycardia; COVID-19 with pulmonary comorbidity; Anxiety and depression Start: 07-25-2019 End: 07-25-2019 Subsequent hospital visit by physician Kody Sandhu Work Phone: [facility] Comment on above: Arrived Start: 03-08-2019 End: 03-08-2019 Subsequent hospital visit by physician Kody Sandhu Work Phone: [facility] Start: 02-14-2019 End: 02-14-2019 Subsequent hospital visit by physician Kody Sandhu Work Phone: [facility] Start: 05-13-2018 Patient encounter procedure PREM TAM Facility:[facility] Procedures Date Procedure Procedure Detail Performing Clinician Start: 11-10-2024 Estimated creatinine clearance Corin Mariscal MD Work Phone: Start: 11-09-2024 Blood count smear mc rscp w/mnl difrntl wbc count Corin Mariscal MD Work Phone: Start: 11-09-2024 Mean corpuscular hemoglobin concentration determination Corin Mariscal MD Work Phone: Start: 11-09-2024 Nucleated red blood cell count procedure Corin Mariscal MD Work Phone: Start: 11-09-2024 Platelet mean volume determination Corin Mariscal MD Work Phone: Start: 11-09-2024 Serum inorganic phos phate measurement Corin Mariscal MD Work Phone: Start: 11-07-2024 Complete ultrasound of kidneys and bladder Corin Mariscal MD Work Phone: Start: 11-07-2024 Urine culture Corin ruano MD Work Phone: Start: 11-07-2024 X-ray of chest, PA a nd lateral views Corin Mariscal MD Work Phone: Start: 11-07-2024 Benzodiazepine measurement, urine Corin Mariscal MD Work Phone: Start: 11-07-2024 Cocaine measurement, urine Corin Mariscal MD Work Phone: Start: 11-07-2024 Methadone measuremen t, urine Corin Mariscal MD Work Phone: Start: 11-07-2024 Urine cannabinoid measurement Corin Mariscal MD Work Phone: Start: 11-07-2024 Urine microscopy: re d cells Corin Mariscal MD Work Phone: Start: 11-07-2024 Urine opiate measurement Coirn Mariscal MD Work Phone: Start: 11-07-2024 Urnls dip stick/tabl et reagent auto microscopy Corin Mariscal MD Work Phone: Start: 11-07-2024 Blood count smear mc rscp w/mnl difrntl wbc count Corin Mariscal MD Work Phone: Start: 11-07-2024 Calculation of international normalized ratio Corin Mariscal MD Work Phone: Start: 11-07-2024 Mean corpuscular hemoglobin concentration determination Corin Mariscal MD Work Phone: Start: 11-07-2024 Nucleated red blood cell count procedure Corin Mariscal MD Work Phone: Start: 11-07-2024 Platelet mean volume determination Corin Mariscal MD Work Phone: Start: 11-07-2024 Estimated creatinine clearance Corin Mariscal MD Work Phone: Start: 11-07-2024 CT cervical spine wi thout contrast Corin Mariscal MD Work Phone: Start: 11-07-2024 CT of abdomen and pe lvis without contrast Corin Mariscal MD Work Phone: Start: 11-07-2024 CT of head without contrast Corin Mariscal MD Work Phone: Start: 09-30-2024 Blood count smear mc rscp w/mnl difrntl wbc count Corin Mariscal MD Work Phone: Start: 09-30-2024 Mean corpuscular hemoglobin concentration determination Corin Mariscal MD Work Phone: Start: 09-30-2024 Nucleated red blood cell count procedure Corin Mariscal MD Work Phone: Start: 09-30-2024 Platelet mean volume determination Corin Mariscal MD Work Phone: Start: 09-30-2024 Total iron binding capacity measurement Corin Mariscal MD Work Phone: Start: 09-30-2024 X-ray of chest, PA a nd lateral views Corin Mariscal MD Work Phone: Start: 08-13-2024 Blood count smear mc rscp w/mnl difrntl wbc count Corin Mariscal MD Work Phone: Start: 08-13-2024 Estimated creatinine clearance Corin Mariscal MD Work Phone: Start: 08-13-2024 Mean corpuscular hemoglobin concentration determination Corin Mariscal MD Work Phone: Start: 08-13-2024 Nucleated red blood cell count procedure Corin Mariscal MD Work Phone: Start: 08-13-2024 Platelet mean volume determination Corin Mariscal MD Work Phone: Start: 08-11-2024 MRI of brain with contrast Corin Mariscal MD Work Phone: Start: 08-11-2024 Assay of triglycerides Corin Mariscal MD Work Phone: Start: 08-11-2024 Serum inorganic phos phate measurement Corin Mariscal MD Work Phone: Start: 08-11-2024 Total cholesterol:HD L ratio measurement Corin Mariscal MD Work Phone: Start: 08-09-2024 Urine microscopy: re d cells Corin Mariscal MD Work Phone: Start: 08-09-2024 Urnls dip stick/tabl et reagent auto microscopy Croin Mariscal MD Work Phone: Start: 08-09-2024 Assay of lactate Corin Mariscal MD Work Phone: Start: 08-09-2024 Calculation of international normalized ratio Corin Mariscal MD Work Phone: Start: 08-09-2024 X-ray of chest, PA a nd lateral views Corin Mariscal MD Work Phone: Start: 08-09-2024 Blood culture Corin ruano MD Work Phone: Start: 08-09-2024 Nucleic acid assay Paramjit Mariscal MD Work Phone: Start: 08-09-2024 Urine culture Corin ruano MD Work Phone: Start: 07-24-2024 Ferritin measurement Ch amy Mariscal MD Work Phone: Start: 07-24-2024 Mean corpuscular hemoglobin concentration determination Corin Mariscal MD Work Phone: Start: 07-24-2024 Platelet mean volume determination Corin Mariscal MD Work Phone: Start: 07-24-2024 Total iron binding capacity measurement Corin Mariscal MD Work Phone: Start: 07-17-2024 Anion gap measurement Suzanna Mariscal MD Work Phone: Start: 07-17-2024 Blood count smear mc rscp w/mnl difrntl wbc count Corin Mariscal MD Work Phone: Start: 07-17-2024 BUN/Creatinine ratio Ch amy Mariscal MD Work Phone: Start: 07-17-2024 Estimated creatinine clearance Corin Mariscal MD Work Phone: Start: 07-17-2024 Mean corpuscular hemoglobin concentration determination Corin Mariscal MD Work Phone: Start: 07-17-2024 Measurement of renal function Corin Mariscal MD Work Phone: Start: 07-17-2024 Nucleated red blood cell count procedure Corin Mariscal MD Work Phone: Start: 07-17-2024 Platelet mean volume determination Corin Mariscal MD Work Phone: Start: 07-16-2024 Carbon dioxide measurement, partial pressure Corin Mariscal MD Work Phone: Start: 07-16-2024 Gases blood o2 satur ation only direct marisela Corin Mariscal MD Work Phone: Start: 07-16-2024 Measurement of parti al pressure of oxygen in blood Corin Mariscal MD Work Phone: Start: 07-16-2024 Oxygen measurement Paramjit Mariscal MD Work Phone: Start: 07-16-2024 Albumin/Globulin ratio Corin Mariscal MD Work Phone: Start: 07-16-2024 D-dimer assay, quantitative Corin Mariscal MD Work Phone: Start: 07-15-2024 Serum ethanol measurement Corin Mariscal MD Work Phone: Start: 07-15-2024 Venous oxygen satura tion measurement Corin Mariscal MD Work Phone: Start: 07-15-2024 Plain chest X-ray Garry Mariscal MD Work Phone: Start: 07-15-2024 Calculation of international normalized ratio Corin Mariscal MD Work Phone: Start: 07-15-2024 Folic acid measurement Corin Mariscal MD Work Phone: Start: 07-15-2024 Nucleic acid assay Paramjit Mariscal MD Work Phone: Start: 07-13-2024 Urine microscopy: re d cells Corin Mariscal MD Work Phone: Start: 07-13-2024 Urnls dip stick/tabl et reagent auto microscopy Corin Mariscal MD Work Phone: Start: 07-13-2024 CT of head without contrast Corin Mariscal MD Work Phone: Start: 07-13-2024 Plain chest X-ray Garry Mariscal MD Work Phone: Start: 07-13-2024 Anion gap measurement C mahad Mariscal MD Work Phone: Start: 07-13-2024 Blood count smear mc rscp w/mnl difrntl wbc count Corin Mariscal MD Work Phone: Start: 07-13-2024 BUN/Creatinine ratio Ch amy Mariscal MD Work Phone: Start: 07-13-2024 Mean corpuscular hemoglobin concentration determination Corin Mariscal MD Work Phone: Start: 07-13-2024 Measurement of renal function Corin Mariscal MD Work Phone: Start: 07-13-2024 Nucleated red blood cell count procedure Corin Mariscal MD Work Phone: Start: 07-13-2024 Platelet mean volume determination Corin Mariscal MD Work Phone: Start: 07-13-2024 Plain chest X-ray Garry Mariscal MD Work Phone: Start: 07-13-2024 SARS-CoV-2, Influenz a & RSV (PCR) Corin Mariscal MD Work Phone: Start: 07-13-2024 Corin mora MD Work Phone: Start: 08-18-2023 X-ray of lumbar spin e, two or three views Dr. Bernardino Moran Work Phone: Start: 08-18-2023 Radiography of thora cic spine Dr. Bernardino Moran Work Phone: Start: 08-13-2023 SARS-CoV-2 (COVID-19 ) Ag [Presence] in Respiratory specimen by Rapid immunoassay Apolinar Yin MD Work Phone: Start: 08-13-2023 Radiologic exam ches t single view Apolinar Yin MD Work Phone: Start: 08-13-2023 Pulmonary ventilatio n & perfusion imaging Apolinar Yin MD Work Phone: Start: 08-12-2023 Dup-scan xtr veins complete bilateral study Apolinar Yin MD Work Phone: Start: 08-12-2023 Basic metabolic pane l calcium total Juliannaa Tae Shabazz MD Work Phone: Start: 08-11-2023 Blood count hematocrit Apolinar Yin MD Work Phone: Start: 08-11-2023 Compatibility each u nit electronic Apolinar Yin MD Work Phone: Start: 08-11-2023 End: 08-11-2023 TRANSFUSE RED BLOOD CELLS Apolinar Yin MD Work Phone: Start: 08-11-2023 Blood count hematocrit Reta Shabazz MD Work Phone: Start: 08-11-2023 Compatibility each u nit electronic Reta Shabazz MD Work Phone: Start: 08-11-2023 End: 08-11-2023 TRANSFUSE RED BLOOD CELLS Reta Shabazz MD Work Phone: Start: 08-11-2023 Basic metabolic pane l calcium total Caroline Downey MD Work Phone: Start: 08-10-2023 Assay of free thyroxine Apolinar Yin MD Work Phone: Start: 08-10-2023 ETHYL GLUCURONIDE SC REEN, URINE Brooke Gigicolton [employer] Work Phone: Start: 08-10-2023 MEDICATION ASSISTED TREATMENT PANEL Brooke Yucolton [employer] Work Phone: Start: 08-10-2023 Urnls dip stick/tabl et reagent auto microscopy Apolinar Yin MD Work Phone: Start: 08-10-2023 Basic metabolic pane l calcium total Caroline Downey MD Work Phone: Start: 08-10-2023 Drug test def 1-7 classes Brookeezequiel Yucolton [employer] Work Phone: Start: 08-09-2023 FL GUIDANCE OR USE O NLY - NON-RESULTABLE Brandon Bean MD Work Phone: Start: 08-09-2023 End: 08-09-2023 Removal posterior segmental instrumentation Brandon Bean MD Work Phone: Start: 08-02-2023 Antibody screen BERNARDINO MORAN Comment on above: Performed By: #### L [id number] ####Endoscopy Support Specialist: RADHA NOGUEIRA ([phone])[facility] ([facility])[address] [place] [address] Start: 07-12-2023 CT of abdomen and pe lvis without contrast Dr. Bernardino Moran Work Phone: Start: 06-18-2023 Lipid 1996 panel - S torsten or Plasma Yessi Silver [employer] Work Phone: Start: 07-16-2022 Plain chest X-ray Dr. Jan Moran Work Phone: Start: 06-23-[address] Bernardino Moran Work Phone: Start: 06-23-2022 End: 06-23-[address] Bernardino Moran Work Phone: Start: 06-07-2022 Urnls dip stick/tabl et rgnt non-auto w/o micrscp Bernardino Moran MD Work Phone: Start: 06-07-2022 Lipid 1996 panel - S torsten or Plasma Bernardino Moran MD Work Phone: Start: 04-17-2022 X-ray of chest posteroanterior view Dr. Bernardino Moran Work Phone: Start: 04-17-2022 Plain X-ray of tibia and fibula Dr. Bernardino Moran Work Phone: Start: 04-17-2022 Plain x-ray of pelvi s and lower extremity Dr. Bernardino Moran Work Phone: Start: 03-15-2022 Plain chest X-ray Dr. Jan Moran Work Phone: Start: 12-29-2021 CT of head without contrast Dr. Bernardino Moran Work Phone: Start: 10-15-2021 X-ray of both feet Dr. Bernardino Moran Work Phone: Start: 10-15-2021 Plain X-ray of tibia and fibula Dr. Bernardino Moran Work Phone: Start: 07-22-2021 SARS-CoV-2 Antigen (Rapid) Dr. Bernardino Moran Work Phone: Start: 07-19-[address] Layo Moran Work Phone: Start: 07-19-2021 O.R. Fluoro for C-Arm Jan Moran Work Phone: Start: 07-19-[address] Layo Moran Work Phone: Start: 07-19-2021 Open reduction with internal fixation Dr. Bernardino Moran Work Phone: Start: 07-17-[address] Layo Moran Work Phone: Start: 07-17-[address] Layo Moran Work Phone: Start: 07-17-2021 Plain X-ray of tibia and fibula Dr. Bernardino Moran Work Phone: Start: 07-17-2021 Plain chest X-ray Dr. Jan Moran Work Phone: Start: 07-17-[address] Layo Moran Work Phone: Start: 07-17-2021 X-ray of both feet Dr. Bernardino Moran Work Phone: Start: 07-17-2021 X-ray of cervical spine Dr. Bernardino Moran Work Phone: Start: 11-26-2020 Lipid 1996 panel - S torsten or Plasma Terri Garcia [employer] Work Phone: Start: 08-26-2020 Assay of magnesium Vive k Sb Work Phone: Start: 08-26-2020 BASIC METABOLIC PANE L W/ REFLEX TO MG FOR LOW K Sarahy Zendlo Work Phone: Start: 08-26-2020 Blood count complete automated Sarahy Zendlo Work Phone: Start: 08-25-2020 Assay of lactate Sarahy Zendlo Work Phone: Start: 08-25-2020 Ecg routine ecg w/le ast 12 lds w/i&r Sarahy Zendlo Work Phone: Start: 08-25-2020 Assay of lactate Sarahy Zendlo Work Phone: Start: 08-25-2020 End: 08-25-2020 ADD ON LAB TEST Sarahy Motta Work Phone: Start: 08-25-2020 Blood count complete automated Lei Basurto Work Phone: Start: 08-25-2020 Albumin serum plasma/whole blood Sarahy Hallo Work Phone: Start: 08-25-2020 Assay of magnesium Vive k Sb Work Phone: Start: 08-25-2020 Assay of phosphorus inorganic Sarahy Motta Work Phone: Start: 08-25-2020 BASIC METABOLIC PANE L W/ REFLEX TO MG FOR LOW K Sarahy Motta Work Phone: Start: 08-25-2020 Assay of lactate Sarahy Meche Work Phone: Start: 08-24-2020 Assay of lactate Lei Basurto Work Phone: Start: 08-24-2020 Drug screen class list a Lei Basurto Work Phone: Start: 08-24-2020 ADD ON LAB TEST Lei william Work Phone: Start: 08-24-2020 Ecg routine ecg w/le ast 12 lds w/i&r Janna Kibe Work Phone: Start: 08-24-2020 Assay of ethanol Janna Kibe Work Phone: Start: 08-24-2020 Assay of lactate Janna Kibe Work Phone: Start: 08-24-2020 Assay of magnesium Eleni ca Kibe Work Phone: Start: 08-24-2020 Assay of phosphorus inorganic Janna Kibe Work Phone: Start: 08-24-2020 Blood count complete auto&auto difrntl wbc Janna Kibe Work Phone: Start: 08-24-2020 Comprehensive metabo lic panel Janna Martinezbe Work Phone: Start: 08-24-2020 COVID-19 Janna Juanb e Work Phone: Start: 08-24-2020 Gonadotropin chorion ic qualitative Janna Medina Work Phone: Start: 07-10-2020 Drug screen quantita tive phenobarbital Thierry Johns Work Phone: Start: 07-10-2020 Hepatic function panel Thierry Johns Work Phone: Start: 07-06-2020 Drug screen class list a Akhil Pacheco Work Phone: Start: 07-06-2020 Urnls dip stick/tabl et rgnt auto w/o microscopy Akhil Pacheco Work Phone: Start: 07-06-2020 Assay of ethanol Akhil Pacheco Work Phone: Start: 07-06-2020 Blood count complete auto&auto difrntl wbc Akhil Pacheco Work Phone: Start: 07-06-2020 Comprehensive metabo lic panel Akhil Pacheco Work Phone: Start: 07-06-2020 COVID-19 Akhil cao Work Phone: Start: 07-06-2020 End: 07-06-2020 Psychotherapy w/patient 60 minutes Severe episode of recurrent major depressive disorder, without psychotic features (HCC) Caprice Elias Work Phone: Comment on above: Severe episode of re current major depressive disorder, without psychotic features (HCC) (Primary Dx) Start: 06-24-2020 End: 06-24-2020 Psychotherapy w/patient 60 minutes Current moderate episode of major depressive disorder without prior episode (HCC) Caprice Elias Work Phone: Comment on above: Current moderate epi sode of major depressive disorder without prior episode (HCC) (Primary Dx); FERN (generalized anxiety disorder) Start: 06-11-2020 End: 06-11-2020 Psychiatric diagnostic evaluation Current moderate episode of major depressive disorder without prior episode (HCC) Caprice Elias Work Phone: Comment on above: Current moderate epi sode of major depressive disorder without prior episode (HCC) (Primary Dx); FERN (generalized anxiety disorder) Start: 04-13-2020 Blood count complete auto&auto difrntl wbc Bernardino Moran Work Phone: Start: 04-13-2020 Comprehensive metabo lic panel Bernardino Moran Work Phone: Start: 04-13-2020 Lipid panel Bernardino Monzon Work Phone: Start: 10-30-2019 Microscopic examinat ion of blood, culture Comment on above: Order Comment: Speci men Source Comment:Blood Performed By: #### E SR, CRP2 #### [facility] [address] [place] [address] #### IGA #### [facility] [address] [place] [address] #### TTGA2, EMABO #### The performing lab is in the report. Start: 10-26-2019 Assay of magnesium Dominic Cohen Work Phone: Start: 10-26-2019 Basic metabolic pane l calcium total Annika Cohen Work Phone: Start: 10-26-2019 Blood count complete auto&auto difrntl wbc Annika Cohen Work Phone: Start: 10-25-2019 Iaad ia mult step me thod nos each organism [facility] Work Phone: Start: 10-25-2019 STREP PNEUMONIAE ANTIGEN [facility] Work Phone: Start: 10-25-2019 Iadna respiratry pro be & rev trnscr 12-25 target [facility] Work Phone: Start: 10-25-2019 Dup-scan xtr veins complete bilateral study [facility] Work Phone: Start: 10-25-2019 Smr prim src gram/gi emsa stain bct fungi/cell [facility] Work Phone: Start: 10-25-2019 Echo tthrc r-t 2d w/wom-mode compl spec&colr d [facility] Work Phone: Start: 10-25-2019 Blood count complete auto&auto difrntl wbc [facility] Work Phone: Start: 10-25-2019 MANUAL DIFFERENTIAL [facility] Work Phone: Start: 10-24-2019 Assay of troponin quantitative [facility] Work Phone: Start: 10-24-2019 Ct angiography chest w/contrast/noncontrast Maycol Cruz Work Phone: Start: 10-24-2019 CULTURE, BLOOD 1 Maycolwendi Bessb Work Phone: Start: 10-24-2019 Assay of troponin quantitative Maycol Arroyo Work Phone: Start: 10-24-2019 Blood count complete auto&auto difrntl wbc Maycol Arroyo Work Phone: Start: 10-24-2019 COVID-19 Maycol Arroyo Work Phone: Start: 10-24-2019 Fibrin dgradj produc ts d-dimer quantitative Maycolwendi Bessb Work Phone: Start: 10-24-2019 Lactate dehydrogenase ldh Maycolwendi Bessb Work Phone: Start: 10-24-2019 Natriuretic peptide Darin on Cruz Work Phone: Start: 10-24-2019 Procalcitonin (pct) Darin on Cruz Work Phone: Start: 10-24-2019 Radiologic exam ches t single view Maycol Cruz Work Phone: Start: 10-24-2019 Ecg routine ecg w/le ast 12 lds w/i&r Maycol Arroyo Work Phone: Start: 10-24-2019 NASAL CANNULA OXYGEN Ryan Arroyo Work Phone: Start: 07-25-2019 End: 07-25-2019 HM ENDOSCOPY REPORT 3m Scanning Start: 03-08-2019 Inf agent det nuclei c acid clostridium amp probe [facility] Work Phone: Start: 02-14-2019 Assay of gammaglobul in iga igd igg igm each [facility] Work Phone: Start: 02-14-2019 C-reactive protein Arju n [facility] Work Phone: Start: 02-14-2019 Sedimentation rate r bc automated [facility] Work Phone: Start: 02-13-2019 Iadna-dna/rna gi pth gn multiplex probe tq 12-25 [facility] Work Phone: Start: 02-13-2019 Inf agent det nuclei c acid clostridium amp probe [facility] Work Phone: Start: 01-08-2019 Colonoscopy Bernardino zavala MD Work Phone: Start: 12-10-2018 Colonoscopy Nisa nava RN Start: 03-08-2017 End: 03-08-2017 Ketorolac Tromethamine 30 mg/ml Sandhyan Elizabeth ADEN Work Phone: Start: 09-15-2005 Colonoscopy Annika melo MD, PhD Work Phone: SARS-CoV-2 & FLU Ant igen (Rapid) Dr. Bernardino Moran Work Phone: Urine culture Dr. Bernardino zavala Work Phone: Urine culture Dr. Bernardino zavala Work Phone: Viral antigen assay Dr. Jitendra Moran Work Phone: Plan of Treatment Date Care Activity Detail Author Start: 01-08-2029 Colon cancer screen colonoscopy Colon cancer screen colonoscopy [facility], [place] Start: 01-08-2029 Screening for malignant neoplasm of colon [facility] Start: 06-18-2028 Lipid panel [facility] Start: 06-07-2027 Lipid panel [facility] Start: 2026 Pneumococcal vaccination Pneumococcal Vaccine (3 of 3 - PPSV23 or PCV20) [facility] Start: 2026 Pneumococcal Vaccine: Pediatrics (0 to 5 Years) and At-Risk Patients (6 to 64 Years) (3 - PPSV23 if available, else PCV20) Pneumococcal Vaccine: Pediatrics (0 to 5 Years) and At-Risk Patients (6 to 64 Years) (3 - PPSV23 if available, else PCV20) [facility] Start: 2026 Pneumococcal Vaccine: Pediatrics (0 to 5 Years) and At-Risk Patients (6 to 64 Years) (3 - PPSV23 or PCV20) Pneumococcal Vaccine: Pediatrics (0 to 5 Years) and At-Risk Patients (6 to 64 Years) (3 - PPSV23 or PCV20) [facility] Start: 2026 Pneumococcal Vaccine: Pediatrics (0 to 5 Years) and At-Risk Patients (6 to 64 Years) (3 of 3 - PPSV23 or PCV20) Pneumococcal Vaccine: Pediatrics (0 to 5 Years) and At-Risk Patients (6 to 64 Years) (3 of 3 - PPSV23 or PCV20) [facility] Start: 08-11-2026 Diabetes Screening Diabetes Screening [facility] Start: 08-01-2026 Diabetes mellitus screening Diabetes Screening [facility] Start: 11-26-2025 Lipid panel Lipid Panel [facility] Start: 06-07-2025 Diabetes Screening Diabetes Screening [facility] Start: 02-02-2025 Influenza vaccination [facility] Start: 11-10-2024 Patient discharge [facility] Start: 11-10-2024 End: 11-10-2024 ambulatory 11/10/2024 9:50 AM EDT Visit (SP) Office Hematology/Oncology [address] [place], [place] [id number] Jose Dennison DO [address] [place] [address] OV/LABS EARLY* Hematology/Oncolog y Comment on above: OV/LABS EARLY* Start: 11-07-2024 Following clinical pathway protocol [facility] Start: 11-07-2024 Assessment of risk of venous thromboembolism [facility] Start: 11-07-2024 Insertion of catheter into peripheral vein [facility] Start: 11-07-2024 Measuring intake and output [facility] Start: 11-07-2024 Oxygen therapy [facility] Start: 11-07-2024 Providing care according to standard [facility] Start: 11-07-2024 Provision of activity privileges [facility] Start: 11-07-2024 Referral to occupational therapist [facility] Start: 11-07-2024 Referral to service [facility] Start: 11-07-2024 Verification routine [facility] Start: 11-07-2024 Admission procedure [facility] Start: 11-07-2024 Hospital admission, emergency, from emergency room, medical nature [facility] Start: 11-07-2024 Blood culture [facility] Start: 11-07-2024 End: 11-07-2024 [facility] Start: 11-07-2024 Patient referral to dietitian [facility] Start: 10-31-2024 End: 10-31-2024 ambulatory [facility] Comment on above: CBC/IRON STUDIES* CBC/IRON STUDIES/MMA * Start: 10-21-2024 Iv infusion therapy prophylaxis/dx ea hour [facility] Start: 10-21-2024 Iv infusion therapy/prophylaxis /dx 1st to 1 hr [facility] Start: 10-16-2024 End: 01-15-2025 Methylmalonate [Moles/volume] in Serum or Plasma METHYLMALONIC ACID Lab Routine Low vitamin B12 level Expected: 10/16/2024, Expires: 01/15/2025 [facility] Work Phone: Comment on above: Expected: 10/16/2024, Expires: Start: 10-15-2024 End: 01-14-2025 Cobalamin (Vitamin B12) [Mass/volume] in Serum or Plasma [facility] Work Phone: Comment on above: Expected: 10/15/2024, Expires: Start: 10-15-2024 End: 01-14-2025 COPPER BLOOD [facility] Comment on above: Expected: 10/15/2024, Expires: Start: 10-15-2024 End: 01-14-2025 Folate [Mass/volume] in Serum or Plasma [facility] Comment on above: Expected: 10/15/2024, Expires: 5 Start: 10-14-2024 Iv infusion therapy prophylaxis/dx ea hour [facility] Start: 10-14-2024 Iv infusion therapy/prophylaxis /dx 1st to 1 hr [facility] Start: 09-30-2024 [facility] Start: 09-30-2024 Referral to service [facility] Start: 08-13-2024 Patient discharge [facility] Start: 08-11-2024 Admission procedure [facility] Start: 08-11-2024 Creatinine measurement Creatinine Level [facility] Start: 08-11-2024 Potassium measurement Potassium Level [facility] Start: 08-11-2024 Patient referral to dietitian [facility] Start: 08-10-2024 End: 08-11-2024 [facility] Start: 08-10-2024 Telemedicine consultation with patient [facility] Start: 08-10-2024 Inhalation therapy procedure [facility] Start: 08-09-2024 Following clinical pathway protocol [facility] Start: 08-09-2024 Assessment of risk of venous thromboembolism [facility] Start: 08-09-2024 Care regimes management [facility] Start: 08-09-2024 Insertion of catheter into peripheral vein [facility] Start: 08-09-2024 Introduction of urinary catheter [facility] Start: 08-09-2024 Measuring intake and output [facility] Start: 08-09-2024 Notification of physician [facility] Start: 08-09-2024 Oxygen therapy [facility] Start: 08-09-2024 Providing care according to standard [facility] Start: 08-09-2024 Provision of activity privileges [facility] Start: 08-09-2024 Referral to service [facility] Start: 08-09-2024 End: 08-09-2024 [facility] Start: 08-09-2024 Admission procedure [facility] Start: 08-09-2024 Hospital admission, emergency, from emergency room, medical nature [facility] Start: 08-09-2024 End: 08-10-2024 [facility] Start: 08-09-2024 Bacteria identified in Blood by Culture Blood Culture [facility] Start: 08-09-2024 Bacteria identified in Urine by Culture Urine Culture [facility] Start: 07-17-2024 Patient discharge [facility] Start: 07-16-2024 Care planning and problem solving actions [facility] Start: 07-16-2024 Application of intermittent pneumatic compression device [facility] Start: 07-16-2024 Inhalation therapy procedure [facility] Start: 07-15-2024 Following clinical pathway protocol [facility] Start: 07-15-2024 Assessment of risk of venous thromboembolism [facility] Start: 07-15-2024 Continuous pulse oximetry [facility] Start: 07-15-2024 Insertion of catheter into peripheral vein [facility] Start: 07-15-2024 Measuring intake and output [facility] Start: 07-15-2024 Oxygen therapy [facility] Start: 07-15-2024 Providing care according to standard [facility] Start: 07-15-2024 Provision of activity privileges [facility] Start: 07-15-2024 Referral to occupational therapist [facility] Start: 07-15-2024 Referral to service [facility] Start: 07-15-2024 Respiratory secretion precautions [facility] Start: 07-15-2024 [facility] Start: 07-15-2024 Dual pressure spontaneous ventilation support [facility] Start: 07-15-2024 Admission procedure [facility] Start: 07-15-2024 Patient referral to dietitian [facility] Start: 07-13-2024 [facility] Start: 07-13-2024 Emergency department visit low/moder severity [facility] Start: 07-13-2024 Iv infusion hydration each additional hour [facility] Start: 07-13-2024 Ther proph/dx njx iv push single/1st sbst/drug [facility] Start: 07-13-2024 Therapeutic injection iv push each new drug [facility] Start: 06-04-2024 Medicare Advantage Annual Wellness Visit Medicare Advantage Annual Wellness Visit [facility] Start: 02-03-2024 Covid-19 Vaccine ( season) Covid-19 Vaccine () [facility] Start: 02-03-2024 Influenza vaccination [facility] Start: 08-18-2023 [facility] Start: 07-29-2023 DTaP/Tdap/Td vaccine (2 - Td) DTaP/Tdap/Td vaccine (2 - Td) [place] Start: 07-29-2023 DTaP/Tdap/Td Vaccines (2 - Td or Tdap) DTaP/Tdap/Td Vaccines (2 - Td or Tdap) [facility] Start: 07-29-2023 Urine microalbumin profile DTaP,Tdap,Td Vaccine (2 - Td or Tdap) [facility] Start: 07-12-2023 [facility] Start: 07-12-2023 [facility] Start: 07-07-2023 Medicare Advantage Annual Wellness Visit (AWV) Medicare Advantage Annual Wellness Visit (AWV) [facility] Start: 06-29-2023 Patient referral [facility] Work Phone: Start: 06-27-2023 Depression Monitoring Depression Monitoring [facility] Start: 06-27-2023 Depresssion Monitoring Depresssion Monitoring [facility] Start: 06-23-2023 Screening for malignant neoplasm of breast Mammogram [facility] Start: 06-13-2023 End: 06-13-2023 Patient encounter procedure [facility] Start: 06-04-2023 Medicare Advantage Annual Wellness Visit Medicare Advantage Annual Wellness Visit [facility] Start: 02-28-2023 Depresssion Monitoring Depresssion Monitoring [facility] Start: 02-02-2023 COVID-19 Vaccine ( season) COVID-19 Vaccine () [facility] Start: 02-02-2023 Influenza vaccination [facility] Start: 12-25-2022 End: 12-25-2022 Telemedicine consultation with patient 12/25/2022 2:00 PM EDT Telemedicine [facility] [address] [place] [address] [place] [address] Bernardino Moran MD [address] [facility] [place] [address] [facility] Start: 12-13-2022 End: 12-13-2022 Patient encounter procedure [facility] Start: 12-03-2022 Lipid screen Lipid screen [facility] [place] Start: 08-29-2022 End: 08-29-2022 Patient encounter procedure 08/29/2022 Office Visit Family Medicine Bernardino Moran MD [address] [facility] [place] [address] [facility] Start: 07-16-2022 Dual pressure spontaneous ventilation support [facility] Start: 07-16-2022 Verification routine [facility] Start: 07-16-2022 [facility] Start: 07-16-2022 Admission procedure [facility] Start: 07-16-2022 Streptococcus pneumoniae antigen assay [facility] Start: 07-16-2022 End: 07-16-2022 Viral nucleic acid assay [facility] Start: 07-16-2022 End: 07-16-2022 [facility] Start: 07-16-2022 Suicide precautions [facility] Start: 06-07-2022 End: 06-07-2023 aPTT in Blood by Coagulation assay APTT Lab Routine Hematoma (nontraumatic) of breast Expected: 06/07/2022 (Approximate), Expires: 06/07/2023 [facility] Comment on above: Expected: 06/07/2022 (Approximate), Expi res: 06/07/2023 Start: 06-07-2022 End: 06-07-2023 CBC W Auto Differential panel - Blood CBC auto differential Lab Routine Hematoma (nontraumatic) of breast Expected: 06/07/2022 (Approximate), Expires: 06/07/2023 [facility] Comment on above: Expected: 06/07/2022 (Approximate), Expi res: 06/07/2023 Start: 06-07-2022 End: 06-02-2023 Comprehensive metabolic 1998 panel - Serum or Plasma Comprehensive metabolic panel Lab Routine Stage 1 chronic kidney disease Screening for diabetes mellitus Expected: 06/07/2022 (Approximate), Expires: 06/02/2023 [facility] Comment on above: Expected: 06/07/2022 (Approximate), Expi res: 06/02/2023 Start: 06-07-2022 End: 06-02-2023 Lipid 1996 panel - Serum or Plasma Lipid panel Lab Routine Pure hypercholesterolemia Expected: 06/07/2022 (Approximate), Expires: 06/02/2023 [facility] Work Phone: Comment on above: Expected: 06/07/2022 (Approximate), Expi res: 06/02/2023 Start: 06-07-2022 End: 06-07-2023 Prothrombin time (PT) in Blood by Coagulation assay Protime-INR Lab Routine Hematoma (nontraumatic) of breast Expected: 06/07/2022 (Approximate), Expires: 06/07/2023 [facility] Comment on above: Expected: 06/07/2022 (Approximate), Expi res: 06/07/2023 Start: 06-07-2022 End: 06-07-2022 Patient encounter procedure 06/07/2022 Office Visit Family Medicine Bernardino Moran MD [address] [place] [address], [place] [address] [facility] Start: 04-17-2022 Patient referral [facility] Work Phone: Start: 03-15-2022 [facility] Work Phone: Start: 02-02-2022 Influenza vaccination Influenza Vaccine (#1) [facility] Start: 12-31-2021 Patient discharge [facility] Work Phone: Start: 12-29-2021 Following clinical pathway protocol [facility] Work Phone: Start: 12-29-2021 Application of intermittent pneumatic compression device [facility] Work Phone: Start: 12-29-2021 Assessment of risk of venous thromboembolism [facility] Work Phone: Start: 12-29-2021 Continuous pulse oximetry [facility] Work Phone: Start: 12-29-2021 Fall prevention [facility] Work Phone: Start: 12-29-2021 Incentive spirometry [facility] Work Phone: Start: 12-29-2021 Insertion of catheter into peripheral vein [facility] Work Phone: Start: 12-29-2021 Introduction of urinary catheter [facility] Work Phone: Start: 12-29-2021 Measuring intake and output [facility] Work Phone: Start: 12-29-2021 Oxygen therapy [facility] Work Phone: Start: 12-29-2021 Providing care according to standard [facility] Work Phone: Start: 12-29-2021 Provision of activity privileges [facility] Work Phone: Start: 12-29-2021 Referral to occupational therapist [facility] Work Phone: Start: 12-29-2021 Referral to service [facility] Work Phone: Start: 12-29-2021 [facility] Work Phone: Start: 12-29-2021 Dual pressure spontaneous ventilation support [facility] Work Phone: Start: 12-29-2021 Admission procedure [facility] Work Phone: Start: 12-29-2021 [facility] Work Phone: Start: 2021 RSV Immunization aged 60 or older (1 - 1-dose 60+ series) RSV Immunization aged 60 or older (1 - 1-dose 60+ series) [facility] Start: 2021 RSV Immunization for Adults (1 - Risk 60-74 years 1-dose series) RSV Immunization for Adults (1 - Risk 60-74 years 1-dose series) [facility] Start: 2021 RSV Vaccine (1 - 1-dose 60+ series) RSV Vaccine (1 - 1-dose 60+ series) [facility] Start: 2021 RSV Vaccine (1 - Risk 60-74 years 1-dose series) RSV Vaccine (1 - Risk 60-74 years 1-dose series) [facility] Start: 08-26-2021 Creatinine measurement [facility] Start: 08-26-2021 Potassium monitoring Potassium monitoring [facility] Work Phone: Start: 08-09-2021 COVID-19 Vaccine (3 - Booster for Pfizer series) COVID-19 Vaccine (3 - Booster for Pfizer series) [facility] Start: 08-09-2021 COVID-19 Vaccine (3 - Pfizer series) COVID-19 Vaccine (3 - Pfizer series) [facility] Start: 07-06-2021 Creatinine measurement Creatinine monitoring [employer] Start: 07-06-2021 Potassium monitoring [facility] [place] Start: 04-13-2021 Lipid panel [facility] screen [email or web address] [place] [place] Start: 04-12-2021 Hepatitis C screening Hepatitis C screen [place], [place] Comment on above: Postponed from 1961 (Patient Refus ed) Start: 04-12-2021 HIV screening HIV screen [facility] [place] Comment on above: Postponed from 1976 (Patient Refus ed) Start: 04-12-2021 Shingles Vaccine (1 of 2) Shingles Vaccine (1 of 2) [facility] [place] Comment on above: Postponed from 12/03/2011 (Patient Refus ed) Start: 10-25-2020 Creatinine measurement Creatinine monitoring [facility] [place] Start: 10-25-2020 Potassium monitoring Potassium monitoring [facility] [place] Start: 09-02-2020 End: 09-02-2020 Office Visit 09/02/2020 Office Visit Family Medicine Bernardino Moran MD [address], [place] [address] [phone] [facility] Start: 07-02-2020 Lipid panel [facility] Start: 07-02-2020 Lipid screen Lipid screen [facility] Start: 04-03-2020 Creatinine monitoring Creatinine monitoring [facility] [place] Start: 04-03-2020 Potassium monitoring Potassium monitoring [facility] Start: 01-21-2020 Creatinine monitoring Creatinine monitoring [facility] , [place] Start: 01-21-2020 Potassium monitoring Potassium monitoring [facility] [place] BARROW Start: 12-31-2019 End: 12-31-2019 Office Visit 12/31/2019 Office Visit Family Medicine Terri Garcia, [employer] [address] [place] [address] [phone] [facility] Start: 12-17-2019 Hepatitis C screen [facility] above[facility] from [facility] (Patient Refus ed) Start: 12-17-2019 Hepatitis C screening [facility] Comment on above: Postponed from 1961 (Patient Refus ed) Start: 12-17-2019 HIV screen [facility] Comment on above: Postponed from 1976 (Patient Refus ed) Start: 12-17-2019 [facility] screening [facility] Comment on above: Postponed from 1976 (Patient Refus ed) Start: 07-16-2019 Breast cancer screen Breast cancer screen [facility] [place] Comment on above: Postponed from 12/03/2011 (Patient Refus ed) Start: 04-12-2019 Shingles Vaccine (1 of 2) Shingles Vaccine (1 of 2) [facility] Comment on above: Postponed from 12/03/2011 (Patient Refus ed) Start: 02-02-2019 Influenza vaccination Flu vaccine (#1) [facility] Start: 12-03-2018 [facility] Start: 09-19-2018 Screening for malignant neoplasm of colon Fecal Occult Blood [facility] Start: 09-20-2017 Screening for malignant neoplasm of colon Colorectal Cancer Screening [facility] Start: 03-08-2017 End: 03-08-2017 Radex hip unilateral with pelvis 2-3 views X-Ray, Hip, unilateral, with pelvis; 2-3 views [facility] Work Phone: Start: 03-08-2017 End: 03-08-2017 Radex spine cervical 2 or 3 views X-Ray, Spine, Cervical 2-3 views [facility] Work Phone: Start: 03-08-2017 End: 03-08-2017 Radex spine lumbosacral minimum 4 views X-Ray, Spine, Lumbosacral 4 views [facility] Work Phone: Start: 03-08-2017 End: 03-08-2017 Appointment [facility] Work Phone: Start: 09-08-2016 Pneumococcal Vaccine: 50+ (3 of 3 - PCV20 or PCV21) Pneumococcal Vaccine: 50+ (3 of 3 - PCV20 or PCV21) [facility] Start: 09-08-2016 Pneumococcal Vaccine: 50+ Years (3 of 3 - PCV20 or PCV21) Pneumococcal Vaccine: 50+ Years (3 of 3 - PCV20 or PCV21) [facility] Start: 09-08-2016 Pneumococcal Vaccine: Pediatrics (0 to 5 Years) and At-Risk Patients (6 to 64 Years) (3 - PPSV23 if available, else PCV20) Pneumococcal Vaccine: Pediatrics (0 to 5 Years) and At-Risk Patients (6 to 64 Years) (3 - PPSV23 if available, else PCV20) [facility] Start: 12-03-2011 Breast cancer screen Breast cancer screen [place], [place] Start: 12-03-2011 Screening for malignant neoplasm of breast Breast cancer screen [place], [place] Start: 12-03-2011 Shingles Vaccine (1 of 2) Shingles Vaccine (1 of 2) [place] Start: 12-03-2011 Shingrix Vaccine (1 of 2) Shingrix Vaccine (1 of 2) [facility] Start: 12-03-2011 Zoster Vaccines (1 of 2) Zoster Vaccines (1 of 2) [facility] Start: 06-04-2011 Screening for malignant neoplasm of breast Mammogram Screening [facility] Start: 09-15-2010 Screening for malignant neoplasm of colon Colonoscopy [facility] Start: 2006 Screening for malignant neoplasm of colon [facility] Start: 2001 Diabetes screen Diabetes screen [facility] [place] [place] Start: 2001 Screening for malignant neoplasm of breast Mammogram [facility] Start: 1980 Hepatitis A Vaccines (1 of 2 - Risk 2-dose series) Hepatitis A Vaccines (1 of 2 - Risk 2-dose series) [facility] Start: 1980 Zoster Vaccines (1 of 2) Zoster Vaccines (1 of 2) [facility] Start: 12-03-1979 Annual PCP Team Chronic Disease Visit Annual PCP Team Chronic Disease Visit [facility] Start: 12-03-1979 Diabetes mellitus screening Diabetes Screening [facility] Start: 12-03-1979 Hepatitis C screening Hepatitis C Screening [facility] Start: 1977 COVID-19 Vaccine (1) COVID-19 Vaccine (1) [facility] Work Phone: Start: 1962 Hepatitis A Vaccines (1 of 2 - Risk 2-dose series) Hepatitis A Vaccines (1 of 2 - Risk 2-dose series) [facility] Start: 1962 MMR Vaccines (1 of 1 - Standard series) MMR Vaccines (1 of 1 - Standard series) [facility] Start: 1961 Echocardiography Echocardiogram [facility] Start: 1961 Hepatitis B Vaccines (1 of 3 - 3-dose series) Hepatitis B Vaccines (1 of 3 - 3-dose series) [facility] Start: 1961 HIV screening HIV Screening [facility] Start: 1961 Medicare Advantage Annual Wellness Visit (AWV) Medicare Advantage Annual Wellness Visit (AWV) [facility] Start: 1961 Screening for malignant neoplasm of colon [facility] [employer] [facility] [place] Comment on above: QHS until discontinued starting 10/25/19 20 QHS until discontinu ed starting 08/24/2020 Bacteria identified in Urine by Culture Urine Culture [facility] Work Phone: End: 08-31-2020 Basic Metabolic Panel w/ Reflex to MG Basic Metabolic Panel w/ Reflex to MG Lab Routine Tomorrow AM for 7 Occurrences starting 08/25/2020 until 08/31/2020, 2 completed [facility] Work Phone: Comment on above: Tomorrow AM for 7 Occurrences starting 0 08/25/2020 until 08/31/2020, 2 completed Bilirubin measuremen t, urine [facility] End: 07-25-2019 Blood glucose - POCT Blood glucose - POCT Point of Care Testing Routine One Time for 1 Occurrences starting 07/25/2019 until 07/25/2019 [facility] Comment on above: One Time for 1 Occurrences starting 07/06 until 07/25/2019 End: 02-14-2019 Calprotectin Stool Calprotectin Stool Lab Routine Once for 1 Occurrences starting 02/14/2019 until 02/14/2019 [facility] [place] Comment on above: Once for 1 Occurrences starting 02/15/20 until 02/14/2019 Calprotectin Stool Calprotectin Stool Lab Routine 02/13/2019 8:00 PM EDT [facility] [place] End: 08-31-2020 CBC CBC Lab Routine Tomorrow AM for 7 Occurrences starting 08/25/2020 until 08/31/2020, 1 completed [facility] Work Phone: Comment on above: Tomorrow AM for 7 Occurrences starting 0 08/25/2020 until 08/31/2020, 1 completed End: 10-25-2019 Covid-19, Antibody Covid-19, Antibody Lab Routine One Time for 1 Occurrences starting 10/25/2019 until 10/25/2019 [facility] [place] Comment on above: One Time for 1 Occurrences starting 10/03 until 10/25/2019 Covid-19, Antibody Covid-19, Ant ibody Lab Routine 10/25/2019 10:55 AM EDT [facility] [place] End: 08-03-2024 Ct lumbar spine w/o contrast material CT LUMBAR SPINE WO IVCON Radiology Routine Radiculopathy of lumbar region 1 Occurrences starting 07/05/2023 until 08/03/2024 [facility] Work Phone: Comment on above: 1 Occurrences starting 07/05/2023 until 08/03/2024 Culture, Blood 1 Culture, Blood 1 Microbiology STAT 10/24/2019 7:03 PM EDT [facility] [place] End: 10-25-2019 Culture, Respiratory Culture, Respiratory Microbiology Routine One Time for 1 Occurrences starting 10/25/2019 until 10/25/2019 [facility] [place] Comment on above: One Time for 1 Occurrences starting 10/03 until 10/25/2019 Culture, Respiratory Culture, Re spiratory Microbiology Routine 10/25/2019 10:18 AM EDT [facility] [place] End: 02-14-2019 Endomysial Antibody, IgA Endomysial Antibody, IgA Lab Routine Once for 1 Occurrences starting 02/14/2019 until 02/14/2019 [facility] [place] Comment on above: Once for 1 Occurrences starting 02/15/20 19 until 02/14/2019 Endomysial Antibody, IgA Endomys ial Antibody, IgA Lab Routine 02/14/2019 10:01 AM EDT [facility] [place] Hemoglobin [Presence ] in Urine [facility] Home BIPAP or CPAP Home BIPAP or CPAP Respiratory Care Routine Daily until discontinued starting 10/24/2019 [facility] [place] Comment on above: Daily until discontinued starting 2019 Legionella Antigen Legionella Antigen [facility] Legionella pneumophi la Ag [Presence] in Urine [facility] Magnesium [Mass/Vol] Magnesium L ab Routine Daily until discontinued starting 08/25/2020, 2 completed [facility] Work Phone: Comment on above: Daily until discontinued starting 2020, 2 completed Magnesium [Mass/volu me] in Serum or Plasma [facility] Measurement of keton es in urine using dipstick [facility] End: 10-25-2019 Microscopic observation Gram stain Nom (Unsp spec) Gram Stain Microbiology Routine Once for 1 Occurrences starting 10/25/2019 until 10/25/2019 [facility] [place] Comment on above: Once for 1 Occurrences starting 10/25/19 20 until 10/25/2019 Microscopic urinalysis [facility] Nebulizer therapy HHN Treatment Respiratory Care Routine 4X Daily until discontinued starting 08/24/2020 [facility] Work Phone: Comment on above: 4X Daily until discontinued starting Oxygen therapy [[facility] Data Set] Initiate Oxygen Therapy Protocol Respiratory Care Routine Daily until discontinued starting 08/24/2020 [facility] Work Phone: Comment on above: Daily until discontinued starting 2020 Patient Education [facility] Work Phone: Patient referral [facility] Work Phone: PEP/Flutter [facility] [place] Comment on above: Daily until discontinued starting 2019 Every 8hr until disc ontinued starting 10/25/2019 pH of Urine [facility] End: 07-25-2019 Pulse Oximetry Spot Check Pulse Oximetry Spot Check Respiratory Care Routine One Time for 1 Occurrences starting 07/25/2019 until 07/25/2019 [facility] Comment on above: One Time for 1 Occurrences starting 07/06 until 07/25/2019 End: 10-24-2019 Pulse Oximetry Spot Check Pulse Oximetry Spot Check Respiratory Care Routine One Time for 1 Occurrences starting 10/24/2019 until 10/24/2019 [facility] Comment on above: One Time for 1 Occurrences starting 10/03 until 10/24/2019 End: 08-03-2024 Radex spine lumbosacral minimum 4 views XR LUMBAR MOTION 4V AP/LAT/ FLEX/EXT Radiology Routine Radiculopathy of lumbar region 1 Occurrences starting 07/05/2023 until 08/03/2024 [facility] Work Phone: Comment on above: 1 Occurrences starting 07/05/2023 until 08/03/2024 SARS-CoV-2 (COVID-19 ) Ag [Presence] in Respiratory specimen by Rapid immunoassay [facility] Specific gravity of Urine [facility] Spirometry panel Incentive jj metry RT Respiratory Care Routine Every 2hr while awake until discontinued starting 08/24/2020 [facility] Work Phone: Comment on above: Every 2hr while awake until discontinued starting 08/24/2020 End: 07-25-2019 Surgical Pathology Surgical Pathology Lab Routine Once for 1 Occurrences starting 07/25/2019 until 07/25/2019 [facility] Comment on above: Once for 1 Occurrences starting 07/25/19 20 until 07/25/2019 Surgical Pathology Surgical Path ology Lab Routine 07/25/2019 11:15 AM EST [place] End: 02-14-2019 Tissue Transglutaminase, IgA Tissue Transglutaminase, IgA Lab Routine Once for 1 Occurrences starting 02/14/2019 until 02/14/2019 [facility] [place] Comment on above: Once for 1 Occurrences starting 02/15/20 19 until 02/14/2019 Tissue Transglutamin ase, IgA Tissue Transglutaminase, IgA Lab Routine 02/14/2019 10:01 AM EDT [facility] End: 08-24-2020 Urinalysis Urinalysis Lab STAT One Time for 1 Occurrences starting 08/24/2020 until 08/24/2020 [facility] Work Phone: Comment on above: One Time for 1 Occurrences starting 08/03 until 08/24/2020 Urinalysis Urinalysis Lab S TAT 08/24/2020 5:40 AM EDT [facility] Work Phone: Urinalysis, blood, qualitative [facility] Urine culture Urine Culture [facility] Work Phone: Urine culture [facility] Urine culture [facility] Urine dipstick for glucose [facility] Urine dipstick for leukocyte esterase [facility] Urine dipstick for nitrite [facility] Urine dipstick for protein [facility] End: 08-24-2020 Urine Drug Screen [facility] Work Phone: Comment on above: One Time for 1 Occurrences starting 08/03 until 08/24/2020 Urine Drug Screen Urine Drug Scr een Lab STAT 08/24/2020 5:40 AM EDT [facility] Work Phone: Urine examination [facility] Urine microscopy: epithelial cells [facility] Urine Microscopy: wh ite cells [facility] Urobilinogen [Presen ce] in Urine [facility] Immunizations Immunization Date Immunization Notes Care Provider Fa [facility] 07-17-2022 influenza, injectabl e, quadrivalent, preservative free Dr. Bernardino Moran Work Phone: [facility] 07-17-2022 influenza, seasonal, injectable Dr. Bernardino Moran Work Phone: [facility] 07-17-2022 influenza virus vaccine, unspecified formulation Bernardino Moran MD Work Phone: [facility] 06-07-2022 zoster vaccine-recombinant adjuvanted (Shingrix) 50 MCG/0.5ML vaccine Bernardino Moran MD Work Phone: [facility] 01-07-2022 tuberculin skin test ; purified protein derivative solution, intradermal Nisa Diane RN [facility] 07-30-2021 tuberculin skin test ; purified protein derivative solution, intradermal Nisa Diane RN [facility] 06-14-2021 Covid (Pfizer) Dr. Bernardino callaway Work Phone: [facility] 03-07-2021 Covid (Pfizer) Dr. Bernardino callaway Work Phone: [facility] 03-07-2021 influenza virus vaccine, unspecified formulation Nisa Diane RN [facility] 03-07-2021 influenza, injectabl e, quadrivalent, preservative free Dr. Bernardino Moran Work Phone: [facility] 03-07-2021 influenza, seasonal, injectable Dr. Bernardino Moran Work Phone: [facility] 04-13-2020 influenza, injectabl e, quadrivalent, preservative free Bernardino Moran [facility] 03-04-[address] Bernardino Moran Work Phone: [facility] 02-12-2019 influenza, injectabl e, quadrivalent, preservative free [facility] 03-08-[address] Bernardino Moran Work Phone: [facility] 01-28-2018 Influenza Vaccine, unspecified formulation [facility] [place] 01-28-2018 influenza virus vaccine, unspecified formulation [facility] 01-23-2018 Influenza Vaccine, unspecified formulation [facility] [place] 02-19-2017 influenza virus vaccine, unspecified formulation [facility] 02-19-2017 influenza, injectabl e, quadrivalent, contains preservative Nisa Diane RN [facility] 02-24-2014 Influenza Vaccine, unspecified formulation [facility] [place] 02-24-2014 influenza, seasonal, injectable Nisa Diane RN [facility] 07-29-2013 tetanus toxoid, redu rosalie diphtheria toxoid, and acellular pertussis vaccine, adsorbed [facility] 03-29-2013 influenza virus vaccine, unspecified formulation Nisa Diane RN [facility] 09-09-2011 pneumococcal polysaccharide vaccine, 23 valent [facility], [place] 09-04-2011 pneumococcal conjuga te vaccine, 13 valent Nisa Diane RN [facility] Payers Date Payer Category Payer Private Health Insurance [id number] 2024 Self-pay [id number] 2024 Medicare (Managed Care) [employer] [facility] [id number] .7.9.887923.50567.315 2024 Unknown [id number] 2022 Medicare 1.2.840.172932. 1.13.680.2 .7.3.998268.315 2022 Medicare HMO UHC DUAL COMPLET E 1.2.840.403145.1.13.680.2 .7.9.765567.105490.315 2022 Unknown [id number] 2021 Medicaid 1.2.840.496911. 1.13.680.2 .7.3.701357.315 2021 Medicaid [id number] 2020 Unknown [id number] 1.2.840.897443.1.13.239.2 .7.3.954174.315 2018 Unknown MEDICAL MUTUAL M EDICAL MUTUAL SURYA - EXCHANGE xxxxxxxxxxxx 2018-Present [phone] [address] [place] [address] xxxxxxxxxxxx 1.2.840.250998.1.13.239.2 .7.3.366631.315 2018 Unknown [id number] 1960 Unknown [id number] 2.16.840.1.831060.3.579.2 .278 1960 Unknown [id number] 2.16.840.1.219275.3.579.2 .647 1960 Unknown [id number] 2.16.840.1.603365.3.579.2 .647 Medicare [id number] Medicare [id number] Private Health Insurance [id number] Unknown [id number] Unknown [id number] 2.16.840.1.630381.3.579.2 .462 Unknown [id number] 2.16.840.1.698248.3.579.2 .462 Unknown [id number] 2.16.840.1.904223.3.579.2 .462 Unknown [id number] 2.16.840.1.945158.3.579.2 .462 Unknown [id number] 2.16.840.1.502679.3.579.2 .462 Unknown [id number] 2.16.840.1.209500.3.579.2 .462 Unknown [id number] 2.16.840.1.748635.3.579.2 .462 Unknown [id number] 2.16.840.1.199171.3.579.2 .462 Unknown [id number] 2.16.840.1.608322.3.579.2 .462 Unknown [id number] 2.16.840.1.110149.3.579.2 .462 Unknown [id number] 2.16.840.1.144213.3.579.2 .462 Unknown [id number] 2.16.840.1.479430.3.579.2 .462 Unknown [id number] 2.16.840.1.159864.3.579.2 .462 Unknown [id number] 2.16.840.1.746347.3.579.2 .462 Unknown [id number] 2.16.840.1.491306.3.579.2 .462 Unknown [id number] 2.16.840.1.999447.3.579.2 .462 Unknown [id number] 2.16.840.1.432523.3.579.2 .462 Unknown [id number] 2.16.840.1.469045.3.579.2 .462 Unknown [id number] 2.16.840.1.967443.3.579.2 .462 Unknown [id number] 2.16.840.1.713965.3.579.2 .462 Unknown [id number] 2.16.840.1.839580.3.579.2 .462 Unknown [id number] 2.16.840.1.866877.3.579.2 .462 Unknown [id number] 2.16.840.1.032297.3.579.2 .462 Unknown [id number] 2.16.840.1.819492.3.579.2 .462 Unknown [id number] 2.16.840.1.587783.3.579.2 .462 Unknown [id number] 2.16.840.1.130005.3.579.2 .462 Unknown [id number] 2.16.840.1.697613.3.579.2 .462 Unknown [id number] 2.16.840.1.209661.3.579.2 .462 Unknown [id number] 2.16.840.1.181569.3.579.2 .462 Unknown [id number] 2.16.840.1.223142.3.579.2 .462 Unknown [id number] 2.16.840.1.660660.3.579.2 .462 Unknown [id number] 2.16.840.1.248118.3.579.2 .462 Unknown [id number] 2.16.840.1.189168.3.579.2 .462 Unknown [id number] 2.16.840.1.810831.3.579.2 .462 Unknown [id number] 2.16.840.1.431982.3.579.2 .462 Unknown [id number] 2.16.840.1.938198.3.579.2 .462 Unknown [id number] 2.16.840.1.451369.3.579.2 .462 Unknown [id number] 2.16.840.1.598889.3.579.2 .462 Unknown [id number] 2.16.840.1.953770.3.579.2 .462 Unknown [id number] 2.16.840.1.407565.3.579.2 .462 Unknown [id number] 2.16.840.1.016244.3.579.2 .462 Unknown [id number] 2.16.840.1.024307.3.579.2 .462 Unknown [id number] 2.16.840.1.095207.3.579.2 .462 Social History Date Type Detail Facility Start: 01-13-2019 End: 08-29-2022 Tobacco smoking status NHIS Former smoker [place] Start: 06-04-1990 End: 06-04-2005 History of tobacco use Current [place]oker [place] Start: 06-04-1990 End: 06-04-2005 History of tobacco use Cigarette [place] Start: 01-13-2019 End: 12-25-2022 Cigarettes smoked current (pack per day) - Reported [place] Start: 01-13-2019 End: 12-25-2022 Alcohol intake Yes [place] Start: 10-31-2017 Alcohol Comment occasional [place] Start: 1960 Sex Assigned At Not on file M [place] Start: 07-25-2019 End: 08-09-2023 Alcohol intake Ex-drinker (finding) [facility] Start: 07-02-2019 End: 06-02-2022 History SDOH Alcohol Frequency 1 [place] Start: 07-02-2019 End: 06-02-2022 History SDOH Financial 5 [place] Start: 07-02-2019 End: 06-02-2022 History SDOH Transport Med 2 [place] Exposure to SARS-CoV -2 (event) Unable to assess [place] Start: 07-07-2020 End: 08-29-2022 Tobacco use and exposure Never used [facility] LAURA Dennis Start: 07-07-2020 Alcohol intake Current drinke r of alcohol (finding) [facility] LAURA BARROW Start: 07-07-2020 Alcohol Comment [facility] kassy le [facility] Start: 05-28-2022 End: 02-15-2023 [facility]event[facility] Start: 10-15-2021 End: 08-18-2023 Tobacco smoking status NHIS Unknown if ever smoked [facility] Start: 11-24-[address] [facility] Start: 11-24-[address] [facility] Start: 01-07-2019 Non-smoker [facility] Start: 1960 Sex Assigned At Female W [facility] Start: 06-02-2022 History SDOH Alcohol Std Drinks 0 [facility] Frequency of Alcohol Consumption Not on file [facility] (I/We) worried andry er (my/our) food would run out before (I/we) got money to buy more. Never true [facility] Start: 05-15-2022 Gender identity Identifies as female gender (finding) [facility] Start: 07-05-2023 End: 10-15-2024 Alcohol intake Current non-drinker of alcohol (finding) [facility] Start: 07-05-2023 Tobacco Comment quit in 2009 [facility] Start: 06-24-2021 Alcohol Comment 90 days alcohol free [facility] Within the last year , have you been afraid of your partner or ex-partner? No [facility] Start: 01-02-2022 End: 08-09-2024 Sex Female (finding) [facility] Medical Equipment Procedure Code Equipment Code Equipment Origin al Text Equipment Identifier Dates ORIF, ankle 3.0 Cannulated Screw FDA Sta rt: 07-19-2021 ORIF, ankle 3.5 Kreulock screws-14mm FDA Start: 07-19-2021 ORIF, ankle 3.5 Locking screw FDA Start: 07-19-2021 ORIF, ankle 3.5 cortical scr ew 12mm FDA Start: 07-19-2021 ORIF, ankle Locking Distal F ib Plate FDA Start: 07-19-2021 ORIF, ankle [id number] FDA Start: 07-19-2021 ORIF, ankle 3.0 Cannulated Screw FDA Sta rt: 07-19-2021 ORIF, ankle 3.0 Kreulock scr ew- 10 FDA Start: 07-19-2021 ORIF, ankle 3.0 Kreulock scr ew- 12 FDA Start: 07-19-2021 ORIF, ankle 3.0 Kreulock scr ew- 12 FDA Start: 07-19-2021 ORIF, ankle 3.0 Kreulock scr ew- 14 FDA Start: 07-19-2021 ORIF, ankle 3.0 Kreulock scr ew- 14 FDA Start: 07-19-2021 ORIF, ankle 3.5 Kreulock screws-14mm FDA Start: 07-19-2021 ORIF, ankle 3.5 Kreulock screws-14mm FDA Start: 07-19-2021 ORIF, ankle 3.0 Cannulated Screw FDA Sta rt: 07-19-2021 ORIF, ankle 3.5 Kreulock screws-14mm FDA Start: 07-19-2021 ORIF, ankle 3.5 Locking screw FDA Start: 07-19-2021 ORIF, ankle 3.5 cortical scr ew 12mm FDA Start: 07-19-2021 ORIF, ankle Locking Distal F ib Plate FDA Start: 07-19-2021 ORIF, ankle 3.0 Cannulated Screw FDA Sta rt: 07-19-2021 ORIF, ankle 3.0 Kreulock scr ew- 10 FDA Start: 07-19-2021 ORIF, ankle 3.0 Kreulock scr ew- 12 FDA Start: 07-19-2021 ORIF, ankle 3.0 Kreulock scr ew- 12 FDA Start: 07-19-2021 ORIF, ankle 3.0 Kreulock scr ew- 14 FDA Start: 07-19-2021 ORIF, ankle 3.0 Kreulock scr ew- 14 FDA Start: 07-19-2021 ORIF, ankle 3.5 Kreulock screws-14mm FDA Start: 07-19-2021 ORIF, ankle 3.5 Kreulock screws-14mm FDA Start: 07-19-2021 ORIF, ankle 3.0 Cannulated Screw FDA Sta rt: 07-19-2021 ORIF, ankle 3.5 Kreulock screws-14mm FDA Start: 07-19-2021 ORIF, ankle 3.5 Locking screw FDA Start: 07-19-2021 ORIF, ankle 3.5 cortical scr ew 12mm FDA Start: 07-19-2021 ORIF, ankle Locking Distal F ib Plate FDA Start: 07-19-2021 ORIF, ankle 3.0 Cannulated Screw FDA Sta rt: 07-19-2021 ORIF, ankle 3.0 Kreulock scr ew- 10 FDA Start: 07-19-2021 ORIF, ankle 3.0 Kreulock scr ew- 12 FDA Start: 07-19-2021 ORIF, ankle 3.0 Kreulock scr ew- 12 FDA Start: 07-19-2021 ORIF, ankle 3.0 Kreulock scr ew- 14 FDA Start: 07-19-2021 ORIF, ankle 3.0 Kreulock scr ew- 14 FDA Start: 07-19-2021 ORIF, ankle 3.5 Kreulock screws-14mm FDA Start: 07-19-2021 ORIF, ankle 3.5 Kreulock screws-14mm FDA Start: 07-19-2021 ORIF, ankle 3.0 Cannulated Screw FDA Sta rt: 07-19-2021 ORIF, ankle 3.5 Kreulock screws-14mm FDA Start: 07-19-2021 ORIF, ankle 3.5 Locking screw FDA Start: 07-19-2021 ORIF, ankle 3.5 cortical scr ew 12mm FDA Start: 07-19-2021 ORIF, ankle Locking Distal F ib Plate FDA Start: 07-19-2021 ORIF, ankle 3.0 Cannulated Screw FDA Sta rt: 07-19-2021 ORIF, ankle 3.0 Kreulock scr ew- 10 FDA Start: 07-19-2021 ORIF, ankle 3.0 Kreulock scr ew- 12 FDA Start: 07-19-2021 ORIF, ankle 3.0 Kreulock scr ew- 12 FDA Start: 07-19-2021 ORIF, ankle 3.0 Kreulock scr ew- 14 FDA Start: 07-19-2021 ORIF, ankle 3.0 Kreulock scr ew- 14 FDA Start: 07-19-2021 ORIF, ankle 3.5 Kreulock screws-14mm FDA Start: 07-19-2021 ORIF, ankle 3.5 Kreulock screws-14mm FDA Start: 07-19-2021 ORIF, ankle 3.0 Cannulated Screw FDA Sta rt: 07-19-2021 ORIF, ankle 3.5 Kreulock screws-14mm FDA Start: 07-19-2021 ORIF, ankle 3.5 Locking screw FDA Start: 07-19-2021 ORIF, ankle 3.5 cortical scr ew 12mm FDA Start: 07-19-2021 ORIF, ankle Locking Distal F ib Plate FDA Start: 07-19-2021 ORIF, ankle 3.0 Cannulated Screw FDA Sta rt: 07-19-2021 ORIF, ankle 3.0 Kreulock scr ew- 10 FDA Start: 07-19-2021 ORIF, ankle 3.0 Kreulock scr ew- 12 FDA Start: 07-19-2021 ORIF, ankle 3.0 Kreulock scr ew- 12 FDA Start: 07-19-2021 ORIF, ankle 3.0 Kreulock scr ew- 14 FDA Start: 07-19-2021 ORIF, ankle 3.0 Kreulock scr ew- 14 FDA Start: 07-19-2021 ORIF, ankle 3.5 Kreulock screws-14mm FDA Start: 07-19-2021 ORIF, ankle 3.5 Kreulock screws-14mm FDA Start: 07-19-2021 ORIF, ankle 3.0 Cannulated Screw FDA Sta rt: 07-19-2021 ORIF, ankle 3.5 Kreulock screws-14mm FDA Start: 07-19-2021 ORIF, ankle 3.5 Locking screw FDA Start: 07-19-2021 ORIF, ankle 3.5 cortical scr ew 12mm FDA Start: 07-19-2021 ORIF, ankle Locking Distal F ib Plate FDA Start: 07-19-2021 ORIF, ankle 3.0 Cannulated Screw FDA Sta rt: 07-19-2021 ORIF, ankle 3.0 Kreulock scr ew- 10 FDA Start: 07-19-2021 ORIF, ankle 3.0 Kreulock scr ew- 12 FDA Start: 07-19-2021 ORIF, ankle 3.0 Kreulock scr ew- 12 FDA Start: 07-19-2021 ORIF, ankle 3.0 Kreulock scr ew- 14 FDA Start: 07-19-2021 ORIF, ankle 3.0 Kreulock scr ew- 14 FDA Start: 07-19-2021 ORIF, ankle 3.5 Kreulock screws-14mm FDA Start: 07-19-2021 ORIF, ankle 3.5 Kreulock screws-14mm FDA Start: 07-19-2021 ORIF, ankle 3.0 Cannulated Screw FDA Sta rt: 07-19-2021 ORIF, ankle 3.5 Kreulock screws-14mm FDA Start: 07-19-2021 ORIF, ankle 3.5 Locking screw FDA Start: 07-19-2021 ORIF, ankle 3.5 cortical scr ew 12mm FDA Start: 07-19-2021 ORIF, ankle Locking Distal F ib Plate FDA Start: 07-19-2021 ORIF, ankle 3.0 Cannulated Screw FDA Sta rt: 07-19-2021 ORIF, ankle 3.0 Kreulock scr ew- 10 FDA Start: 07-19-2021 ORIF, ankle 3.0 Kreulock scr ew- 12 FDA Start: 07-19-2021 ORIF, ankle 3.0 Kreulock scr ew- 12 FDA Start: 07-19-2021 ORIF, ankle 3.0 Kreulock scr ew- 14 FDA Start: 07-19-2021 ORIF, ankle 3.0 Kreulock scr ew- 14 FDA Start: 07-19-2021 ORIF, ankle 3.5 Kreulock screws-14mm FDA Start: 07-19-2021 ORIF, ankle 3.5 Kreulock screws-14mm FDA Start: 07-19-2021 ORIF, ankle 3.0 Cannulated Screw FDA Sta rt: 07-19-2021 ORIF, ankle 3.5 Kreulock screws-14mm FDA Start: 07-19-2021 ORIF, ankle 3.5 Locking screw FDA Start: 07-19-2021 ORIF, ankle 3.5 cortical scr ew 12mm FDA Start: 07-19-2021 ORIF, ankle Locking Distal F ib Plate FDA Start: 07-19-2021 ORIF, ankle 3.0 Cannulated Screw FDA Sta rt: 07-19-2021 ORIF, ankle 3.0 Kreulock scr ew- 10 FDA Start: 07-19-2021 ORIF, ankle 3.0 Kreulock scr ew- 12 FDA Start: 07-19-2021 ORIF, ankle 3.0 Kreulock scr ew- 12 FDA Start: 07-19-2021 ORIF, ankle 3.0 Kreulock scr ew- 14 FDA Start: 07-19-2021 ORIF, ankle 3.0 Kreulock scr ew- 14 FDA Start: 07-19-2021 ORIF, ankle 3.5 Kreulock screws-14mm FDA Start: 07-19-2021 ORIF, ankle 3.5 Kreulock screws-14mm FDA Start: 07-19-2021 ORIF, ankle 3.0 Cannulated Screw FDA Sta rt: 07-19-2021 ORIF, ankle 3.5 Kreulock screws-14mm FDA Start: 07-19-2021 ORIF, ankle 3.5 Locking screw FDA Start: 07-19-2021 ORIF, ankle 3.5 cortical scr ew 12mm FDA Start: 07-19-2021 ORIF, ankle Locking Distal F ib Plate FDA Start: 07-19-2021 ORIF, ankle 3.0 Cannulated Screw FDA Sta rt: 07-19-2021 ORIF, ankle 3.0 Kreulock scr ew- 10 FDA Start: 07-19-2021 ORIF, ankle 3.0 Kreulock scr ew- 12 FDA Start: 07-19-2021 ORIF, ankle 3.0 Kreulock scr ew- 12 FDA Start: 07-19-2021 ORIF, ankle 3.0 Kreulock scr ew- 14 FDA Start: 07-19-2021 ORIF, ankle 3.0 Kreulock scr ew- 14 FDA Start: 07-19-2021 ORIF, ankle 3.5 Kreulock screws-14mm FDA Start: 07-19-2021 ORIF, ankle 3.5 Kreulock screws-14mm FDA Start: 07-19-2021 ORIF, ankle 3.0 Cannulated Screw FDA Sta rt: 07-19-2021 ORIF, ankle 3.5 Kreulock screws-14mm FDA Start: 07-19-2021 ORIF, ankle 3.5 Locking screw FDA Start: 07-19-2021 ORIF, ankle 3.5 cortical scr ew 12mm FDA Start: 07-19-2021 ORIF, ankle Locking Distal F ib Plate FDA Start: 07-19-2021 ORIF, ankle 3.0 Cannulated Screw FDA Sta rt: 07-19-2021 ORIF, ankle 3.0 Kreulock scr ew- 10 FDA Start: 07-19-2021 ORIF, ankle 3.0 Kreulock scr ew- 12 FDA Start: 07-19-2021 ORIF, ankle 3.0 Kreulock scr ew- 12 FDA Start: 07-19-2021 ORIF, ankle 3.0 Kreulock scr ew- 14 FDA Start: 07-19-2021 ORIF, ankle 3.0 Kreulock scr ew- 14 FDA Start: 07-19-2021 ORIF, ankle 3.5 Kreulock screws-14mm FDA Start: 07-19-2021 ORIF, ankle 3.5 Kreulock screws-14mm FDA Start: 07-19-2021 ORIF, ankle 3.0 Cannulated Screw FDA Sta rt: 07-19-2021 ORIF, ankle 3.5 Kreulock screws-14mm FDA Start: 07-19-2021 ORIF, ankle 3.5 Locking screw FDA Start: 07-19-2021 ORIF, ankle 3.5 cortical scr ew 12mm FDA Start: 07-19-2021 ORIF, ankle Locking Distal F ib Plate FDA Start: 07-19-2021 ORIF, ankle 3.0 Cannulated Screw FDA Sta rt: 07-19-2021 ORIF, ankle 3.0 Kreulock scr ew- 10 FDA Start: 07-19-2021 ORIF, ankle 3.0 Kreulock scr ew- 12 FDA Start: 07-19-2021 ORIF, ankle 3.0 Kreulock scr ew- 12 FDA Start: 07-19-2021 ORIF, ankle 3.0 Kreulock scr ew- 14 FDA Start: 07-19-2021 ORIF, ankle 3.0 Kreulock scr ew- 14 FDA Start: 07-19-2021 ORIF, ankle 3.5 Kreulock screws-14mm FDA Start: 07-19-2021 ORIF, ankle 3.5 Kreulock screws-14mm FDA Start: 07-19-2021 ORIF, ankle 3.0 Cannulated Screw FDA Sta rt: 07-19-2021 ORIF, ankle 3.5 Kreulock screws-14mm FDA Start: 07-19-2021 ORIF, ankle 3.5 Locking screw FDA Start: 07-19-2021 ORIF, ankle 3.5 cortical scr ew 12mm FDA Start: 07-19-2021 ORIF, ankle Locking Distal F ib Plate FDA Start: 07-19-2021 ORIF, ankle 3.0 Cannulated Screw FDA Sta rt: 07-19-2021 ORIF, ankle 3.0 Kreulock scr ew- 10 FDA Start: 07-19-2021 ORIF, ankle 3.0 Kreulock scr ew- 12 FDA Start: 07-19-2021 ORIF, ankle 3.0 Kreulock scr ew- 12 FDA Start: 07-19-2021 ORIF, ankle 3.0 Kreulock scr ew- 14 FDA Start: 07-19-2021 ORIF, ankle 3.0 Kreulock scr ew- 14 FDA Start: 07-19-2021 ORIF, ankle 3.5 Kreulock screws-14mm FDA Start: 07-19-2021 ORIF, ankle 3.5 Kreulock screws-14mm FDA Start: 07-19-2021 ORIF, ankle FDA Start: 07-19-2021 ORIF, ankle FDA Start: 07-19-2021 ORIF, ankle FDA Start: 07-19-2021 ORIF, ankle FDA Start: 07-19-2021 ORIF, ankle FDA Start: 07-19-2021 ORIF, ankle FDA Start: 07-19-2021 ORIF, ankle FDA Start: 07-19-2021 ORIF, ankle FDA Start: 07-19-2021 ORIF, ankle FDA Start: 07-19-2021 ORIF, ankle FDA Start: 07-19-2021 ORIF, ankle FDA Start: 07-19-2021 ORIF, ankle FDA Start: 07-19-2021 ORIF, ankle FDA Start: 07-19-2021 ORIF, ankle FDA Start: 07-19-2021 ORIF, ankle FDA Start: 07-19-2021 ORIF, ankle FDA Start: 07-19-2021 ORIF, ankle FDA Start: 07-19-2021 ORIF, ankle FDA Start: 07-19-2021 ORIF, ankle FDA Start: 07-19-2021 ORIF, ankle FDA Start: 07-19-2021 ORIF, ankle FDA Start: 07-19-2021 ORIF, ankle FDA Start: 07-19-2021 ORIF, ankle FDA Start: 07-19-2021 ORIF, ankle FDA Start: 07-19-2021 ORIF, ankle FDA Start: 07-19-2021 ORIF, ankle FDA Start: 07-19-2021 ORIF, ankle FDA Start: 07-19-2021 ORIF, ankle FDA Start: 07-19-2021 ORIF, ankle FDA Start: 07-19-2021 ORIF, ankle FDA Start: 07-19-2021 ORIF, ankle FDA Start: 07-19-2021 ORIF, ankle FDA Start: 07-19-2021 ORIF, ankle FDA Start: 07-19-2021 ORIF, ankle FDA Start: 07-19-2021 ORIF, ankle FDA Start: 07-19-2021 ORIF, ankle FDA Start: 07-19-2021 ORIF, ankle FDA Start: 07-19-2021 ORIF, ankle FDA Start: 07-19-2021 ORIF, ankle FDA Start: 07-19-2021 ORIF, ankle FDA Start: 07-19-2021 ORIF, ankle FDA Start: 07-19-2021 ORIF, ankle FDA Start: 07-19-2021 ORIF, ankle FDA Start: 07-19-2021 ORIF, ankle FDA Start: 07-19-2021 ORIF, ankle FDA Start: 07-19-2021 ORIF, ankle FDA Start: 07-19-2021 ORIF, ankle FDA Start: 07-19-2021 ORIF, ankle FDA Start: 07-19-2021 ORIF, ankle FDA Start: 07-19-2021 ORIF, ankle FDA Start: 07-19-2021 ORIF, ankle FDA Start: 07-19-2021 ORIF, ankle FDA Start: 07-19-2021 ORIF, ankle FDA Start: 07-19-2021 ORIF, ankle FDA Start: 07-19-2021 ORIF, ankle FDA Start: 07-19-2021 ORIF, ankle FDA Start: 07-19-2021 ORIF, ankle FDA Start: 07-19-2021 ORIF, ankle FDA Start: 07-19-2021 ORIF, ankle FDA Start: 07-19-2021 ORIF, ankle FDA Start: 07-19-2021 ORIF, ankle FDA Start: 07-19-2021 ORIF, ankle FDA Start: 07-19-2021 ORIF, ankle FDA Start: 07-19-2021 ORIF, ankle FDA Start: 07-19-2021 ORIF, ankle FDA Start: 07-19-2021 Bear 42mm Mbl lr 2 Tib E - [id number] Start: 12-30-2014 Shell Actb 54mm Prim Sb Hmsphr - [id number] Start: 12-30-2014 Ins Actb 48mm 28 mm Rt Hip Zara - [id number] Start: 12-30-2014 Head V40 Fem Hip 28mm -4mm Blx - [id number] Start: 12-30-2014 Fem Stem Acclde 2 Sz 4 127 Deg - [id number] Start: 12-30-2014 Graft Matrix 20c c Mastergraft - [id number] Start: 08-09-2023 Kit Infuse Bone Graft Xl 8.0cc - [id number] Start: 08-09-2023 Screw Set Ti Spi nal Break Off - [id number] Start: 08-09-2023 Screw Spinal 6.3ayz91ii - [id number] Start: 08-09-2023 Screw Multi-Axia l Std 5.5x45mm - [id number] Start: 08-09-2023 Screw Multi-Axia l Std 5.5x45mm - [id number] Start: 08-09-2023 Screw Spinal 5.1hlu73nb - [id number] Start: 08-09-2023 Seth Alumin 5.5mm 500mm [facility] - [id number] Start: 08-09-2023 Goals Date Patient Goal Desired Activity /State Functional Status Date Assessment Result Facility 11-10-2024 Functional status Bedrest [facility] Work Phone: 08-13-2024 Functional status Chair [facility] Work Phone: 07-17-2024 Functional status Bedrest [facility] Work Phone: 12-31-2021 Functional status Bedrest [facility] Work Phone: 12-30-2021 Functional status Standard Walker [facility] Work Phone: 07-22-2021 Functional status Bedside Commode [facility] Work Phone: 07-21-2021 Functional status Assistive Bhavani grecia Rolling Walker [facility] Work Phone: 01-01-2015 Are you deaf, or do you have serious difficulty hearing No 01/01/2015 4:16 PM Jina Mary RN No [facility] 01-01-2015 Are you blind, or do you have serious difficulty seeing, even when wearing glasses No 01/01/2015 4:16 PM Jina Mary RN No [facility] 01-01-2015 Do you have serious difficulty walking or climbing stairs Yes 01/01/2015 4:16 PM Jina Mary RN Yes [facility] 01-01-2015 Do you have difficul ty dressing or bathing No 01/01/2015 4:16 PM Jina Mary, SIMON No [facility] 01-01-2015 Because of a physica l, mental, or emotional condition, do you have difficulty doing errands alone such as visiting a physician's office or shopping Yes 01/01/2015 4:16 PM Jina Mary RN Yes [facility] Mental Status Date Assessment Result Facility 11-10-2024 Cognitive function Voice/Name [facility] Work Phone: 10-21-2024 Cognitive function Voice/Name [facility] Work Phone: 10-14-2024 Cognitive function Awake;Alert;A ppropriate;Fol lows Commands [facility] Work Phone: 09-30-2024 Cognitive function Awake;Alert;Appropriat e [facility] Work Phone: 08-13-2024 Cognitive function Voice/Name;Touch/Shaki ng [facility] Work Phone: 08-09-2024 Cognitive function Level Of Cons ciousness Awake;Alert;Appropriate;Fol lows Commands [facility] Work Phone: 07-17-2024 Cognitive function Voice/Name [facility] Work Phone: 03-15-2022 Cognitive function Awake;Disoriented [facility] Work Phone: 12-31-2021 Cognitive function Voice/Name [facility] Work Phone: 07-22-2021 Cognitive function Voice/Name;Touch/Shaki [facility] Work Phone: 07-21-2021 Cognitive function Cooperative [facility] Work Phone: 07-17-2021 Cognitive function Level Of Cons ciousness Awake;Alert;Appropriate [facility] Work Phone: 01-01-2015 Because of a physica l, mental, or emotional condition, do you have serious difficulty concentrating, remembering, or making decisions No 01/01/2015 4:16 PM Jina Mary, SIMON No [facility] Clinical Notes 08-05-2012 to 11-20-2024 Note Date & Type Note Facility 11-20-2024 Note [facility] 11-19-2024 Note [facility] 11-10-2024 Note [facility] 11-10-2024 Progress note Note Date/Time November 10, 2024 1:51p m [facility] Medical Records Department [facility] [place] [address] Progress Note - Hospitalist 11/10/24 1348 MR#: [id number] Acct: [id number] Name: ALFIE HOGAN Rep #:[id number] : 1960 63 From: Blayne Santana DO PCP: Dr. Corin Mariscal MD Status:ADM IN Location: [place] [address] Reason for Visit Reason for Visit: Diagnoses Hypokalemia (11/07/24) Encephalopathy, unspecified (11/07/24) Acute kidney failure, unspecified (11/07/24) Weakness (11/07/24) Other malaise (11/07/24) Other specified abnormal findings of blood chemistry (11/07/24) Other half-way (current) drug therapy (11/07/24) Subjective Subjective Feeling better. Pain in sacrum after falls. Able to flex LE w/o difficulty. Objective Data Objective Data Vital Signs: Vital Signs Temp Pulse Resp BP Pulse Ox O2 Del Method O2 Flow Rate 37.2 C 101 H 16 120/64 94 Nasal Cannula 2 11/10/24 10:00 11/10/24 12:56 11/10/24 12:56 11/10/24 10:00 11/10/24 10:00 11/10/24 10:17 11/10/24 10:17 Oxygen Flow Rate (L/min) 2 Oxygen Delivery Method Nasal Cannula Weight: 135.9 kg Body Mass Index (BMI) 46.9 Intake & Output: Intake and Output for Last 24 Hours 11/08/24 11/09/24 11/10/24 23:59 23:59 23:59 Intake Total 3600 / 3840 1680 / 1680 220 / 220 Output Total 1000 / 1500 1999 / 1999 550 / 550 Balance 2600 / 2340 -320 / -320 -330 / -330 Lab / Micro Data 11/09/24 07:04 11/10/24 07:13 Labs: Laboratory Results - last 24 hr 11/09/24 16:38: POC Glucose 130 H 11/09/24 21:04: POC Glucose 96 11/10/24 06:24: POC Glucose 105 11/10/24 07:13: Sodium 144, Potassium 3.4, Chloride 109 H, Carbon Dioxide 23.5, Anion Gap 11, BUN 26 H, Creatinine 2.16 H, Estim Creat Clear Calc 38.93 L, Est GFR (MDRD) Non-Af 25 L, BUN/Creatinine Ratio 11.9, Glucose 98, Calcium 9.5 11/10/24 12:28: POC Glucose 94 Micro: Microbiology 11/07/24 11:20 Blood Culture (Wb) - Left Forearm Blood Culture - Preliminary No growth in 48 hours. 11/07/24 11:00 Blood Culture (Wb) - Anticubital Right Blood Culture - Preliminary No growth in 48 hours. 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 Neuro Sensorium / Orientation: awake and alert Assessment & Plan Assessment/Plan (1) PEDRO (acute kidney injury): PLAN: 2/2 dehydration. Improved with IVF. Kidney ultrasound unremarkable. No additional work up. (2) Hypokalemia: PLAN: replaced (3) Elevated troponin: PLAN: Likely skewed given PEDRO. Trended down. No additional work up at this time. (4) Encephalopathy: PLAN: Resolved Likely metabolic and toxic. From PEDRO, plus home medications. Head CT showed no acute process. (5) Debility: PLAN: Did poorly with therapy walking only 15 feet. Patient will likely requireskilled nursing facility. To TCU today. PLAN: Plan VTE prophylaxis: LMWH. 11/10/24 1351 <Electronically signed by Blayne Santana DO> Cosigner Signature (if applicable): CC: ~ Signed [facility] Work Phone: 1(530) 616-554106-09-2025 [facility]06-08-2025 Progress note Author Blayne Santana [facility] Note Date/Time November 09, 2024 1:41p m [facility] Medical Records Department [address] [place] [address] Progress Note - Hospitalist 11/09/24 0908 MR#: [id number] Acct: [id number] Name: ALFIE HOGAN Rep #:[id number] : 1960 63 From: Blayne Santana DO PCP: Dr. 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 No new events. Objective Data Objective Data Vital Signs: Vital Signs Temp Pulse Resp BP Pulse Ox O2 Del Method O2 Flow Rate 36.5 C L 90 18 111/71 99 Nasal Cannula 2 11/09/24 08:51 11/09/24 08:51 11/09/24 08:51 11/09/24 08:51 11/09/24 08:51 11/09/24 08:51 11/09/24 08:51 Oxygen Flow Rate (L/min) 2 Oxygen Delivery Method Nasal Cannula Weight: 135.9 kg Body Mass Index (BMI) 46.9 Intake & Output: Intake and Output for Last 24 Hours 11/07/24 11/08/24 11/09/24 23:59 23:59 23:59 Intake Total 3282.45 / 3282.45 3600 / 3840 1440 / 1440 Output Total 400 / 400 1000 / 1500 1500 / 1500 Balance 2882.45 / 2882.45 2600 / 2340 -60 / -60 Lab / Micro Data 11/09/24 07:04 11/09/24 07:04 Labs: Laboratory Results - last 24 hr 11/08/24 06:06: POC Glucose 95 11/08/24 11:18: POC Glucose 98 11/08/24 14:43: Sodium 140, Potassium 3.5, Chloride 107, Carbon Dioxide 21.3, Anion Gap 12, BUN 32 H, Creatinine 2.54 H, Estim Creat Clear Calc 33.11 L, Est GFR (MDRD) Non-Af 21 L, BUN/Creatinine Ratio 12.7, Glucose 112 H, Calcium 8.8 11/08/24 16:56: POC Glucose 115 H 11/08/24 21:21: POC Glucose 91 11/09/24 06:38: POC Glucose 92 11/09/24 07:04: WBC 4.5, RBC 3.04 L, Hgb 8.5 L, Hct 27.2 L, MCV 89.5, MCH 28.0, MCHC 31.3 L, RDW Std Deviation 56.2 H, RDW Coeff of Jaun 17.3 H, Plt Count 135 L,MPV 9.4, Immature Gran % (Auto) 1.300 H, Neut % (Auto) 80.8 H, Lymph % (Auto) 10.4 L, Woodward % (Auto) 6.2, Eos % (Auto) 1.1, Baso % (Auto) 0.2, Absolute Neuts (auto) 3.6, Absolute Lymphs (auto) 0.47 L, Nucleated RBC % 0, Sodium 141, Potassium 3.7, Chloride 108, Carbon Dioxide 22.4, Anion Gap 10, BUN 29 H, Creatinine 2.39 H, Estim Creat Clear Calc 35.18 L, Est GFR (MDRD) Non-Af 22 L, BUN/Creatinine Ratio 12.1, Glucose 103 H, Calcium 9.0, Phosphorus 4.3, Magnesium1.5, Total Bilirubin 0.59, AST 26, ALT 17, Alkaline Phosphatase 101, Total Protein 5.5 L, Albumin 3.2 L, Globulin 2.3, Albumin/Globulin Ratio 1.4 Micro: Microbiology 11/07/24 12:21 Urine, Clean Catch Urine 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 11/07/24 12:21 Urine, Clean Catch Urine 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 Mixed Gram Positive Organisms Physical Exam Const alert and no apparent distress HEENT head/scalp atraumatic and moist oral mucous membranes Resp normal respiratory effort, no retractions, no use of accessory muscles and clearto auscultation bilaterally Cardio regular rate, regular rhythm, S1 normal heart sound and S2 normal heart sound GI normal to inspection, nondistended, normoactive bowel sounds, soft to palpation,non-tender and non-distended Extremity normal to inspection Neuro Sensorium / Orientation: awake Assessment & Plan Assessment/Plan (1) PEDRO (acute kidney injury): PLAN: 2/2 dehydration. Improved with IVF. Kidney ultrasound unremarkable. (2) Hypokalemia: PLAN: resplaced (3) Elevated troponin: PLAN: Likely skewed given PEDRO. Trended down. No additional work up at this time. (4) Encephalopathy: PLAN: Likely metabolic and toxic. From PEDRO, plus home medications. Head CT showed no acute process. (5) Debility: PLAN: Did poorly with therapy walking only 15 feet. Patient will likely requireskilled nursing facility. PLAN: Plan VTE prophylaxis: LMWH. Charges/Coding Visit Charges Inpatient E&M: 83910 Subs Hosp L2 11/09/24 134 <Electronically signed by Blayne Santana DO> Cosigner Signature (if applicable): CC: ~ Signed [facility] Work Phone: 1(832) 331-535306-07-2025 Progress note Author Blayne lorena [facility] Note Date/Time November 08, 2024 3:00p m [facility] Medical Records Department [address] [place] [address] Progress Note - Hospitalist 11/08/24 09 MR#: [id number] Acct: [id number] Name: ALFIE HOGAN Rep #:[id number] : 1960 63 From: Blayne Santana DO PCP: Dr. Corin Mariscal MD Status:ADM IN Location: [place] [address] Reason for Visit Reason for Visit: Diagnoses Hypokalemia (11/07/24) Acute kidney failure, unspecified (11/07/24) Weakness (11/07/24) Other malaise (11/07/24) Other specified abnormal findings of blood chemistry (11/07/24) Other half-way (current) drug therapy (11/07/24) Subjective Subjective Thinks she may have eaten something. Objective Data Objective Data Vital Signs: Vital Signs Temp Pulse Resp BP Pulse Ox O2 Del Method O2 Flow Rate 36.6 C 94 16 124/71 H 98 Nasal Cannula 2 11/08/24 03:22 11/08/24 08:01 11/08/24 08:01 11/08/24 03:22 11/08/24 08:01 11/08/24 08:01 11/08/24 08:01 Oxygen Flow Rate (L/min) 2 Oxygen Delivery Method Nasal Cannula Weight: 135.9 kg Body Mass Index (BMI) 46.9 Intake & Output: Intake and Output for Last 24 Hours 11/06/24 11/07/24 11/08/24 23:59 23:59 23:59 Intake Total 3282.45 / 3282.45 1000 / 1000 Output Total 400 / 400 300 / 300 Balance 2882.45 / 2882.45 700 / 700 Lab / Micro Data 11/07/24 11:20 11/07/24 11:00 Labs: Laboratory Results - last 24 hr 11/07/24 11:00: Sodium 138, Potassium 2.6 L*, Chloride 101, Carbon Dioxide 21.2,Anion Gap 17 H, BUN 39 H, Creatinine 3.19 H, Estim Creat Clear Calc 24.26 L, EstGFR (MDRD) Non-Af 16 L, BUN/Creatinine Ratio 12.1, Glucose 94, Calcium 9.5, Total Bilirubin 0.60, AST 38 H, ALT 23, Alkaline Phosphatase 120 H, Total Creatine Kinase 54, Troponin T High Sens 41 H, Total Protein 6.7, Albumin 3.9, Globulin 2.9, Albumin/Globulin Ratio 1.4 11/07/24 11:20: WBC 9.0, RBC 3.86 L, Hgb 10.8 L, Hct 33.7 L, MCV 87.3, MCH 28.0,MCHC 32.0, RDW Std Deviation 53.4 H, RDW Coeff of Jaun 16.9 H, Plt Count 192, MPV9.5, Immature Gran % (Auto) 1.600 H, Neut % (Auto) 84.0 H, Lymph % (Auto) 9.7 L,Woodward % (Auto) 4.1, Eos % (Auto) 0.4, Baso % (Auto) 0.2, Absolute Neuts (auto) 7.6, Absolute Lymphs (auto) 0.87, Nucleated RBC % 0, PT 12.5, INR 0.9, APTT 24.6, Lactic Acid 1.1, Ethyl Alcohol < 10.1 11/07/24 12:21: Urine Color Yellow, Urine Clarity Clear, Urine pH 6.0, Ur Specific Lorton 1.010, Urine Protein 100 H, Urine Glucose (UA) Normal, Urine Ketones Negative, Urine Occult Blood 25 H, Urine Nitrite Negative, Urine Bilirubin Negative, Urine Urobilinogen Normal, Ur Leukocyte Esterase Negative, Urine RBC 0-5 SEEN, Urine WBC 0-5 SEEN, Ur Squamous Epith Cells 5-10 SEEN, UrineBacteria RARE, Urine Mucus 0 SEEN, Urine Opiates Screen PRESUMPTIVE POSITIVE, U Buprenorphine Qual NEGATIVE, Ur Oxycodone Screen NEGATIVE, Urine Methadone Screen NEGATIVE, Urine Fentanyl Screen NEGATIVE, Ur Barbiturates Screen NEGATIVE, Ur Phencyclidine Scrn NEGATIVE, Ur Amphetamines Screen NEGATIVE, U Benzodiazepines Scrn PRESUMPTIVE POSITIVE, Urine Cocaine Screen NEGATIVE, U Cannabinoids Screen NEGATIVE 11/07/24 13:00: Magnesium 1.6, Troponin T Hi Sens 2 Hr 34 H 11/07/24 15:40: Troponin T Hi Sens 4Hr 33 H 11/07/24 17:00: Ur Random Sodium < 20 11/07/24 21:22: POC Glucose 79 Radiography Diagnostic Testing: Radiology Impression Abdomen/Pelvis CT 11/07/24 10:31 IMPRESSION: 1. Hepatomegaly with fatty infiltration. 2. Fecal retention in the colon consistent with constipation. 3. Colonic diverticulosis without acute diverticulitis. Reading Location: [facility] Brain CT 11/07/24 10:31 IMPRESSION: 1. No fracture seen. 2. No intracranial hemorrhage or other acute process is noted Reading Location: [address] Cervical Spine CT 11/07/24 10:31 IMPRESSION: 1. No acute fracture. 2. Degenerative changes cervical spine as described. Reading Location: [facility] Chest X-Ray 11/07/24 13:30 IMPRESSION: Postsurgical changes of the thoracolumbar spine again partially visualized, without apparent interval change. Stable right hemidiaphragm elevation. The examination is limited by hypoinflation, body habitus, and AP portable technique, as well as relative hypoinflation. Increased left basilar airspace disease is seen, with differential diagnosis including atelectasis, less likely pneumonitis. No evidence of pulmonary edema. No pleural effusion is clearly seen. No pneumothorax is evident. The cardiomediastinal silhouette is stable, without evidence of cardiomegaly. Reading Location: [id number] Renal Ultrasound 11/07/24 19:24 IMPRESSION: Findings suggestive of medical renal disease. No hydronephrosis. Reading Location: [id number] Physical Exam Const alert and no apparent distress HEENT head/scalp atraumatic and moist oral mucous membranes Resp normal respiratory effort, no retractions, no use of accessory muscles and clearto auscultation bilaterally Cardio regular rate, regular rhythm, S1 normal heart sound and S2 normal heart sound GI normal to inspection, nondistended, normoactive bowel sounds, soft to palpation,non-tender and non-distended Neuro oriented x3, CN's II-XII intact bilaterally, moves all extremities and no focal motor deficits Sensorium / Orientation: awake and alert Assessment & Plan Assessment/Plan (1) PEDRO (acute kidney injury): PLAN: 2/2 dehydration. Continue IVF. Kidney ultrasound unremarkable. (2) Hypokalemia: PLAN: resplaced (3) Elevated troponin: PLAN: Likely skewed given PEDRO. Trended down. No additional work up at this time. (4) Encephalopathy: PLAN: Likely metabolic and toxic. From PEDRO, plus home medications. Head CT showed no acute process. PLAN: Plan VTE prophylaxis: LMWH. Charges/Coding Visit Charges Inpatient E&M: 00818 Subs Hosp L2 11/08/24 1500 <Electronically signed by Blayne Santana DO> Cosigner Signature (if applicable): CC: ~ Signed [facility] Work Phone: [phone]) 291-681006-07-2025 Radiology Diagnostic study [facility]06-06-2025 History and physical note Author Kaitlyn Winkler [facility] Note Date/Time November 07, 2024 5:28p m [facility] Medical Records Department [address] [place] [id number] H&P Exam - Hospitalist 11/07/24 1619 MR#: [id number] Acct: [id number] Name: ALFIE HOGAN Rep #:[id number] : 1960 63 From: Katilyn Winkler DO PCP: Dr. Corin Mariscal MD Status:REG ER Location: ED HPI - General General Date of Admission: 11/07/24 Date of Service: 11/07/24 Chief Complaint: Falls HPI Narrative ALFIE HOGAN, is a 63 F who presented to the emergency department at [facility] on 11/07/2024 with a chief complaint of falls.jan grider had multiple falls in the last several days. She reports at least 4 days and hit her head 1 time. On presentation she was complaining of some low back and buttock pain. She also reported that she not been eating or drinking much recently. Sunday of last week she had 4 teeth extracted and then ended up with dry socket and one of them so her p.o. intake has been drastically reduced due to mouth pain. She had been on clindamycin and had been taking it without missing any doses. She lives alone but does have family in the area. She does appear to have some polypharmacy if she is on temazepam and Xanax [facility]. She is also on anticholinergic with trospium for urinary incontinence. I suspect that this in conjunction with her PEDRO is causing her falls as noted above. I did discuss the need to reduce doses with her and consideration of either discontinuing her temazepam or Ativan and she became very tearful. 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 She did demonstrate frustration about it however. Vital signs on presentation showed a temperature of 98.1, pulse was 93, respiratory was 24, blood pressure was 105/73 and pulse ox was 97% on her baseline 3 L nasal cannula. CBC shows a chronic stable anemia but was otherwiseunremarkable. Coags are normal. Chemistry panel shows marked hypokalemia with potassium of 2.6, anion gap of 17 with a normal serum bicarb however it is much lower than her baseline currently at 21.2. BUN is 39 with a serum creatinine of3.19. It appears her baseline serum creatinine runs between 0.8 and 1.2. Lactic acid was normal at 1.1. Magnesium was normal at 1.6. Cardiac enzymes are slightly elevated with her initial troponin being 41 and subsequent 2 and 4-hour troponins being 34 and 33 respectively. UA is consistent with some dehydration but not consistent with infection. Toxicology screen was positive for opiates. She has been on Vicodin at home for her mouth. Also positive for benzodiazepines which she takes chronically. F alcohol level is less than 10. CT abdomen pelvis is negative for any acute findings other than constipation. She also does appear to have hepatomegaly with fatty infiltration. CT of the brain is unremarkable for any acute findings. CT of the cervical spine is negative for any acute findings. Chest x-ray is unremarkable. EKG was unremarkable for any ST-T wave changes concerning for acute ischemia. She does have a chronic right bundle branch block. Given her PEDRO and frequent falls, she will be admitted to the hospital and placed on aggressive hydration with workup for her PEDRO as well as electrolyte replacement. [facility] Medical History Normocytic anemia Diabetes Chronic pain CPAP (continuous positive airway pressure) dependence Contusion of left hip Contusion of rib on right side Contusion of left shoulder Contusion of scalp Closed fracture of fibula, proximal, left Pyuria Substance abuse Kidney disease Former smoker BiPAP (biphasic positive airway pressure) dependence Sleep apnea On home oxygen therapy Hypertension Dementia Alcohol withdrawal Alcohol abuse Admitted to alcohol detoxification center Medical marijuana use Frequent falls DVT (deep venous thrombosis) Right ventricular systolic dysfunction Right bundle branch block (RBBB) Essential (primary) hypertension Sepsis Abdominal pain Migraine Chronic renal insufficiency, stage I Pancytopenia Respiratory tract infection due to COVID-19 virus Endocarditis Gastritis Restrictive lung disease Colitis Osteoarthritis Chronic renal failure Depression GENNARO (obstructive sleep apnea) Pneumonia Bronchitis Asthma COPD (chronic obstructive pulmonary disease) Morbid obesity HLD (hyperlipidemia) Bronchiectasis Idiopathic right ventricular dilation Thrombocytopenia Leukopenia Abnormal liver CT Anemia Anxiety Respiratory insufficiency Respiratory failure with hypoxia Colitis with rectal bleeding History of umbilical hernia History of diarrhea Arthritis Gastroesophageal reflux disease Home Medications ?Medication ?Instructions ?Recorded ?Last Taken ?Type pantoprazole 40 mg tablet,delayed 40 mg PO DAILY ACID REFLUX 12/09/18 07/12/24 History release rosuvastatin 40 mg tablet 40 mg PO QHS CHOLESTEROL 07/12/24 History melatonin 10 mg tablet 10 mg PO QHS SLEEP 07/16/22 07/12/24 History carvedilol 3.125 mg tablet 3.125 mg PO BID HEART #60 tabs 07/20/22 07/12/24 Rx mometasone-formoterol HFA 100 2 puff inhalation BID SH ORTNESS OF 03/05/23 07/12/24 Rx mcg-5 mcg/actuation aerosol BREATH/WHEEZING #13 grams inhaler (Dulera) temazepam 30 mg capsule 30 mg PO QHS INSOMNIA 07/12/24 History alprazolam 0.5 mg tablet 0.5 mg PO BID anxiety 07/12/24 History fluoxetine 40 mg capsule 40 mg PO DAILY depression 07/12/24 History linaclotide 290 mcg capsule 290 mcg PO DAILY bowel fun ction 01/28/24 07/12/24 History (Linzess) trospium 20 mg tablet 20 mg PO BID see 01/28/24 07/12/24 History ergocalciferol (vitamin D2) 1,250 1,250 mcg PO QWEEK 0 07/15/24 Unknown History mcg (50,000 unit) capsule albuterol sulfate 90 mcg/actuation 1 puff inhalation Q 6H PRN 07/17/24 Unknown Rx aerosol inhaler shortness of breath or wheez ing #6.7 grams cyanocobalamin (vitamin B-12) 1,000 mcg PO DAILY 08/09 Unknown History 1,000 mcg tablet (Vitamin B-12) cyclobenzaprine 5 mg tablet 5 mg PO TID PRN PRN muscle spasm 08/09/24 Unknown History ferrous sulfate 325 mg (65 mg 325 mg PO QDAY 08/09/24 Unknown History iron) tablet (iron) fluconazole 100 mg tablet 100 mg PO QWEEK 08/09/24 Unk nown History magnesium 200 mg tablet 200 mg PO DAILY 08/09/24 Unk nown History sennosides 8.6 mg tablet (Aminata-guy) 8.6 mg PO BID PRN PRN constipation 08/09/24 Unknown History metformin 500 mg tablet,extended 500 mg PO BID 5 Unknown History release 24 hr tirzepatide 7.5 mg/0.5 mL 7.5 mg subcut QWEEK 11/07/24 Unknown History subcutaneous pen injector (Mounjaro) Allergy/AdvReac Type Severity Reaction Status Date / Time house dust Allergy ITCHY EYES Verified 11/07/24 10:21 Penicillins Allergy Hives Verified 11/07/24 10:21 Seasonal Allergies: Uncoded Allergy ITCHY EYES Verified 11/07/24 10:21 Family History Father Colon cancer Mother Cancer pancreatic Surgical History History of tubal ligation History of appendectomy History of hysterectomy History of cholecystectomy Social History household members: none Smoking Status: Former smoker Tobacco: How many years used: 25 how long ago did patient quit smokin, 0.5ppd second hand exposure: Yes alcohol intake: former substance use type: does not use ROS Constitutional Constitutional: Reports weakness and other Details: Frequent falls ; Denies anorexia, change in weight, chills, fatigue, fever(s), malaise or night sweats Eyes Eyes: Denies blurry vision, change in eye color, change in vision, discharge from eye(s), double vision, erythema, eye pain, loss of vision or other ENT HEENT: Reports other Details: Mouth pain due to recent tooth extractions- markedly improved ; Denies abnormal hearing, dysphagia, ear pain, epistaxis, headache(s), hearing loss, nasal congestion, nasal discharge, post nasal drip, sinus pressure or sorethroat Cardiovascular Cardiovascular: Denies chest pain, claudication, dyspnea on exertion, edema, lightheadedness, orthopnea, palpitations, paroxysmal nocturnal dyspnea, rapid heart rate, syncope or other Respiratory/Chest Respiratory/Chest: Denies cough, dyspnea, excessive phlegm production, hemoptysis, productive cough, shortness of breath at rest, shortness of breath with exertion, wheezing or other Gastrointestinal Gastrointestinal: Denies abdominal pain, coffee ground emesis, constipation, diarrhea, dyspepsia, hematemesis, hematochezia, loose stools, melena, nausea, vomiting or other Genitourinary Genitourinary: Denies burning urination, difficulty urinating, dysuria, hematuria, nocturia, urinary frequency, urinary hesitancy, urinary incontinence,urinary urgency or other Musculoskeletal Musculoskeletal: Reports back pain and other Details: Buttock pain ; Denies arthralgias, joint pain, joint stiffness, joint swelling, myalgias or neck pain Neurologic Neurologic: Denies abnormal gait, abnormal speech, confusion, disequilibrium, dizziness, focal weakness, headache(s), numbness, paresthesias, seizure-like activity, seizures, syncope, tingling, tremor(s) or other Psychiatric Psychiatric: Reports anxiety and depression; Denies homicidal ideation, suicidalideation or other Endocrine Endocrinology: Denies change in body appearance, cold intolerance, excessive sweating, heat intolerance, polydipsia, polyuria or other Hematologic/Lymphatic Hematologic/Lymphatic: Denies anemia, easy bleeding, easy bruising, lymphadenopathy or other Allergic/Immunologic Allergic/Immunologic: Denies rhinitis, hives, eczemia, asthma or other Vital Signs Vital Signs Vital Signs: 11/07/24 10:18 11/07/24 10:41 11/07/24 12:18 Temperature 98.1 F 98.1 F Temperature Source Oral Oral Pulse Rate 93 91 Respiratory Rate 24 H 22 H Blood Pressure 105/73 106/69 Blood Pressure Mean 83 81 Pulse Ox 97 98 Oxygen Delivery Method Nasal Cannula Nasal Cannula Nasal Cannula Oxygen Flow Rate (L/min) 3 3 3 11/07/24 12:52 11/07/24 14:37 11/07/24 15:36 Temperature 97.9 F 98.1 F 98.1 F Temperature Source Oral Oral Oral Pulse Rate 90 91 91 Respiratory Rate 18 18 19 H Blood Pressure 105/72 119/93 H 127/75 H Blood Pressure Mean 83 101 92 Pulse Ox 95 95 98 Oxygen Delivery Method Nasal Cannula Nasal Cannula Nasal Cannula Oxygen Flow Rate (L/min) 3 3 3 Weight Weight: 114.3 kg Body Mass Index (BMI) 38.2 Physical Exam Const alert, no apparent distress and well nourished; Negative for average body habitus or healthy appearing Constitutional Narrative: Morbidly obese, upper middle-aged, white female, sitting up in bed, appears older than stated age, tearful at times, oriented to self place and month but got confused initially on year General Appearance: cooperative HEENT normocephalic, head/scalp atraumatic and hearing grossly normal bilaterally HEENT Narrative: Mucous membranes and lips are markedly dry, dentures in place, Mallampati 3, no thrush, pill fragments remain in mouth from potassium supplementation Eyes Eyes Narrative: No scleral icterus Neck supple Neck Narrative: Neck is short and thick, trachea midline Resp normal respiratory effort, no retractions, no use of accessory muscles and clearto auscultation bilaterally Resp Narrative: Diminished diffusely Auscultation: rales; Negative for rhonchi or wheezes Cardio regular rate, regular rhythm, S1 normal heart sound, S2 normal heart sound, no murmurs, no rub, no gallops and no clicks GI normal to inspection, nondistended, normoactive bowel sounds, soft to palpation and non-tender GI Narrative: Protuberant abdomen Extremity no clubbing, cyanosis or edema Extremity Narrative: Pedal pulses are 2+, radial pulses are 2+ Neuro moves all extremities and no focal motor deficits Neuro Narrative: Patient was oriented to time except for month had some confusion with this Sensorium / Orientation: awake, alert, oriented to person and oriented to place Speech: speech normal Psych Psych Narrative: Tearful at times Mood & Affect: anxious Results Lab / Micro Data 11/07/24 11:20 11/07/24 11:00 Labs: Laboratory Results - last 24 hr 11/07/24 11:00: Sodium 138, Potassium 2.6 L*, Chloride 101, Carbon Dioxide 21.2,Anion Gap 17 H, BUN 39 H, Creatinine 3.19 H, Estim Creat Clear Calc 24.26 L, EstGFR (MDRD) Non-Af 16 L, BUN/Creatinine Ratio 12.1, Glucose 94, Calcium 9.5, Total Bilirubin 0.60, AST 38 H, ALT 23, Alkaline Phosphatase 120 H, Total Creatine Kinase 54, Troponin T High Sens 41 H, Total Protein 6.7, Albumin 3.9, Globulin 2.9, Albumin/Globulin Ratio 1.4 11/07/24 11:20: WBC 9.0, RBC 3.86 L, Hgb 10.8 L, Hct 33.7 L, MCV 87.3, MCH 28.0,MCHC 32.0, RDW Std Deviation 53.4 H, RDW Coeff of Jaun 16.9 H, Plt Count 192, MPV9.5, Immature Gran % (Auto) 1.600 H, Neut % (Auto) 84.0 H, Lymph % (Auto) 9.7 L,Woodward % (Auto) 4.1, Eos % (Auto) 0.4, Baso % (Auto) 0.2, Absolute Neuts (auto) 7.6, Absolute Lymphs (auto) 0.87, Nucleated RBC % 0, PT 12.5, INR 0.9, APTT 24.6, Lactic Acid 1.1, Ethyl Alcohol < 10.1 11/07/24 12:21: Urine Color Yellow, Urine Clarity Clear, Urine pH 6.0, Ur Specific Lorton 1.010, Urine Protein 100 H, Urine Glucose (UA) Normal, Urine Ketones Negative, Urine Occult Blood 25 H, Urine Nitrite Negative, Urine Bilirubin Negative, Urine Urobilinogen Normal, Ur Leukocyte Esterase Negative, Urine RBC 0-5 SEEN, Urine WBC 0-5 SEEN, Ur Squamous Epith Cells 5-10 SEEN, UrineBacteria RARE, Urine Mucus 0 SEEN, Urine Opiates Screen PRESUMPTIVE POSITIVE, U Buprenorphine Qual NEGATIVE, Ur Oxycodone Screen NEGATIVE, Urine Methadone Screen NEGATIVE, Urine Fentanyl Screen NEGATIVE, Ur Barbiturates Screen NEGATIVE, Ur Phencyclidine Scrn NEGATIVE, Ur Amphetamines Screen NEGATIVE, U Benzodiazepines Scrn PRESUMPTIVE POSITIVE, Urine Cocaine Screen NEGATIVE, U Cannabinoids Screen NEGATIVE 11/07/24 13:00: Magnesium 1.6, Troponin T Hi Sens 2 Hr 34 H 11/07/24 15:40: Troponin T Hi Sens 4Hr 33 H Imaging Radiology Impression Abdomen/Pelvis CT 11/07/24 10:31 IMPRESSION: 1. Hepatomegaly with fatty infiltration. 2. Fecal retention in the colon consistent with constipation. 3. Colonic diverticulosis without acute diverticulitis. Reading Location: [facility] Brain CT 11/07/24 10:31 IMPRESSION: 1. No fracture seen. 2. No intracranial hemorrhage or other acute process is noted Reading Location: [address] Cervical Spine CT 11/07/24 10:31 IMPRESSION: 1. No acute fracture. 2. Degenerative changes cervical spine as described. Reading Location: [facility] Chest X-Ray 11/07/24 13:30 IMPRESSION: Postsurgical changes of the thoracolumbar spine again partially visualized, without apparent interval change. Stable right hemidiaphragm elevation. The examination is limited by hypoinflation, body habitus, and AP portable technique, as well as relative hypoinflation. Increased left basilar airspace disease is seen, with differential diagnosis including atelectasis, less likely pneumonitis. No evidence of pulmonary edema. No pleural effusion is clearly seen. No pneumothorax is evident. The cardiomediastinal silhouette is stable, without evidence of cardiomegaly. Reading Location: [address] Assessment & Plan Assessment/Plan (1) PEDRO (acute kidney injury): (2) Hypokalemia: (3) Generalized weakness: (4) Debility: (5) Chronic prescription benzodiazepine use: (6) Elevated troponin: PLAN: Plan PEDRO - Seems to be secondary to dehydration with decreased p.o. intake due to oral pain related to dental extraction - Oral intake is improving and pain is decreasing - Check urine sodium and urine creatinine - Will dose reduce temazepam to 15 mg at at bedtime as I do think polypharmacy is contributing to her falls - Continue IV fluids with LR at 150 cc/h for 4 L - Check renal ultrasound - Will hold off on nephrology consultation for now as there are no needs for renal replacement therapy with the hopes that renal function improves quickly with IV fluids Troponin elevation - Suspect related to PEDRO and decreased clearance - Patient without chest pain - EKG is unremarkable for any acute finding consistent with acute ischemia - Will defer further workup at this time Hypokalemia - Magnesium is within normal limits - Patient was given oral and IV potassium in the emergency department - Recheck in a.m. Generalized weakness/debility/falls - Suspect this is multifactorial but does include polypharmacy -Would recommend reevaluation of her benzodiazepine use by her psychiatrist - PT/OT consultation - Case management/social work consultation for assistance with discharge planning Chronic hypoxic respiratory failure secondary to COPD - Patient initially denied having COPD however I reviewed records and previous pulmonary notes that she does indeed have COPD - FEV1 is 69% predicted - Continue home inhalers - I did discuss with the patient the fact that she does have COPD for future health records purposes - As needed albuterol - Recommend outpatient follow-up with pulmonary medicine as previously scheduled GENNARO - Patient noncompliant - Continue home O2 3 L nocturnally and uptitrate to keep sats between 88 and 90%while sleeping DM-2 - Hold home oral agents - Hold home injections - SSI with Accu-Cheks as ordered Essential hypertension/hyperlipidemia - Hold Coreg for now with significant dehydration his blood pressures are somewhat soft - As needed labetalol - Continue home statin GERD - Continue home PPI History of iron deficiency - Continue iron - Hemoglobin is currently stable and normal Depression/anxiety - Continue Xanax - Continue fluoxetine Severe insomnia - Continue dose reduced temazepam due to renal dysfunction - Continue home melatonin IBS/constipation - Restart Linzess at discharge - Continue home bowel regimen Recent dental extraction - As needed Tylenol - Patient completed clindamycin Obesity -BMI is 38.3 -Recommend weight loss -Complicates treatment, prognosis, outcomes DVT prophylaxis - Heparin 3 times daily CODE STATUS - DNR CCA okay for short-term intubation Charges/Coding Visit Charges Inpatient E&M: 84382 Init Hosp L3 11/07/24 5326 <Electronically signed by Kaitlyn Winkler DO> Cosigner Signature (if applicable): CC: Dr. Coirn Mariscal MD; Dr. Kaitlyn Winkler DO~ Signed [facility] Work Phone: [phone] Discharge summary Author Armen Gonzales [facility] Note Date/Time November 07, 2024 4:21p m [facility] Medical Records Department [address] [place] [address] Emergency Department Summary 11/07/24 MR#: [id number] Acct: [id number] Name: ALFIE HOGAN Rep #:[id number] : 1960 63 From: Armen Gonzales DO PCP: Dr. Corin Mariscal MD Status:REG ER Location: ED HPI History of Present Illness Chief Complaint: Fall Narrative Narrative: Patient is a 63-year-old female with a past medical history of COPD chronically on 3 L, hypertension, hyperlipidemia, thrombocytopenia, alcohol abuse and substance abuse despite denying this when questioned in the room who presents tot emergency department with chief complaint of multiple falls. Patient statesthat over the last few days she has had at least 4 falls and she states that shedid hit her head at 1 time. She states that she is complaining of lower back/buttock pain. Patient states that she has not been eating or drinking much. States on Sunday of last week she had teeth removed and has been on clindamycin and has been taking this as prescribed not missing doses. Patient denies any blood thinning medications. Patient states that she does live alone and has family in the area. [facility] Medical History Diabetes Chronic pain CPAP (continuous positive airway pressure) dependence Contusion of left hip Contusion of rib on right side Contusion of left shoulder Contusion of scalp Closed fracture of fibula, proximal, left Pyuria Substance abuse Kidney disease Former smoker BiPAP (biphasic positive airway pressure) dependence Sleep apnea On home oxygen therapy Hypertension Dementia Alcohol withdrawal Alcohol abuse Admitted to alcohol detoxification center Medical marijuana use Frequent falls DVT (deep venous thrombosis) Right ventricular systolic dysfunction Right bundle branch block (RBBB) Essential (primary) hypertension Sepsis Abdominal pain Migraine Chronic renal insufficiency, stage I Pancytopenia Respiratory tract infection due to COVID-19 virus Endocarditis Gastritis Restrictive lung disease Colitis Osteoarthritis Chronic renal failure Depression GENNARO (obstructive sleep apnea) Pneumonia Bronchitis Asthma COPD (chronic obstructive pulmonary disease) Morbid obesity HLD (hyperlipidemia) Bronchiectasis Idiopathic right ventricular dilation Thrombocytopenia Leukopenia Abnormal liver CT Anemia Anxiety Respiratory insufficiency Respiratory failure with hypoxia Colitis with rectal bleeding History of umbilical hernia History of diarrhea Arthritis Gastroesophageal reflux disease Home Medications ?Medication ?Instructions ?Recorded ?Last Taken ?Type pantoprazole 40 mg tablet,delayed 40 mg PO DAILY ACID REFLUX 12/09/18 07/12/24 History release rosuvastatin 40 mg tablet 40 mg PO QHS CHOLESTEROL 07/12/24 History melatonin 10 mg tablet 10 mg PO QHS SLEEP 07/16/22 07/12/24 History carvedilol 3.125 mg tablet 3.125 mg PO BID HEART #60 tabs 07/20/22 07/12/24 Rx mometasone-formoterol HFA 100 2 puff inhalation BID SH ORTNESS OF 03/05/23 07/12/24 Rx mcg-5 mcg/actuation aerosol BREATH/WHEEZING #13 grams inhaler (Dulera) temazepam 30 mg capsule 30 mg PO QHS INSOMNIA 07/12/24 History alprazolam 0.5 mg tablet 0.5 mg PO BID anxiety 07/12/24 History fluoxetine 40 mg capsule 40 mg PO DAILY depression 07/12/24 History linaclotide 290 mcg capsule 290 mcg PO DAILY bowel fun ction 01/28/24 07/12/24 History (Linzess) trospium 20 mg tablet 20 mg PO BID see 01/28/24 07/12/24 History ergocalciferol (vitamin D2) 1,250 1,250 mcg PO QWEEK 0 07/15/24 Unknown History mcg (50,000 unit) capsule albuterol sulfate 90 mcg/actuation 1 puff inhalation Q 6H PRN 07/17/24 Unknown Rx aerosol inhaler shortness of breath or wheez ing #6.7 grams cyanocobalamin (vitamin B-12) 1,000 mcg PO DAILY 08/09 Unknown History 1,000 mcg tablet (Vitamin B-12) cyclobenzaprine 5 mg tablet 5 mg PO TID PRN PRN muscle spasm 08/09/24 Unknown History ferrous sulfate 325 mg (65 mg 325 mg PO QDAY 08/09/24 Unknown History iron) tablet (iron) fluconazole 100 mg tablet 100 mg PO QWEEK 08/09/24 Unk nown History magnesium 200 mg tablet 200 mg PO DAILY 08/09/24 Unk nown History sennosides 8.6 mg tablet (Aminata-guy) 8.6 mg PO BID PRN PRN constipation 08/09/24 Unknown History metformin 500 mg tablet,extended 500 mg PO BID 5 Unknown History release 24 hr tirzepatide 7.5 mg/0.5 mL 7.5 mg subcut QWEEK 11/07/24 Unknown History subcutaneous pen injector (Mounjaro) Allergy/AdvReac Type Severity Reaction Status Date / Time house dust Allergy ITCHY EYES Verified 11/07/24 10:21 Penicillins Allergy Hives Verified 11/07/24 10:21 Seasonal Allergies: Uncoded Allergy ITCHY EYES Verified 11/07/24 10:21 Family History Father Colon cancer Mother Cancer pancreatic Surgical History History of tubal ligation History of appendectomy History of hysterectomy History of cholecystectomy Social History household members: none Smoking Status: Former smoker Tobacco: How many years used: 25 how long ago did patient quit smokin, 0.5ppd second hand exposure: Yes alcohol intake: former substance use type: does not use ROS ROS ED ROS Narrative Constitutional: Denies headache, fevers, chills Eyes: Denies change in vision double vision blurry vision Cardiovascular: Denies chest pain Respiratory: Shortness of breath Abdomen: Denies abdominal pain nausea vomit diarrhea : Denies urinary symptoms Neurological: Complains of weakness with multiple falls denies any numbness or tingling Musculoskeletal: Complains of low buttock pain as noted above Skin: Denies any rashes or lesions EXAM Physical Exam Narrative Exam Narrative: General: Patient lying in bed rest comfortably do not appear to be in acute distress Head: Atraumatic, normocephalic Eyes: PERRL bilaterally, EOMI bilateral, no conjunctival injection noted Neck: Soft, supple, trachea midline Cardiovascular: Regular rate and rhythm no murmurs gallops rubs noted Respiratory: Clear to auscultation bilaterally Abdomen: Soft, nondistended, nontender to palpation Musculoskeletal: All joints taken through full range of motion and all bony prominence palpated no pain elicited Extremities: +4/5 strength noted in the bilateral upper and lower extremities, radial pulses +2/4 in the bilateral extremities Neurological: Patient follow commands knew that she was at [facility] the year is 2024. NIH is 0 GCS 15 Skin: Warm, dry, patient has superficial abrasion over the right knee no evidence of infection at this point time Const Vital Signs: 11/07/24 10:18 11/07/24 10:41 11/07/24 12:18 Temperature 98.1 F 98.1 F Temperature Source Oral Oral Pulse Rate 93 91 Respiratory Rate 24 H 22 H Blood Pressure 105/73 106/69 Blood Pressure Mean 83 81 Pulse Ox 97 98 Oxygen Delivery Method Nasal Cannula Nasal Cannula Nasal Cannula Oxygen Flow Rate (L/min) 3 3 3 11/07/24 12:52 11/07/24 14:37 11/07/24 15:36 Temperature 97.9 F 98.1 F 98.1 F Temperature Source Oral Oral Oral Pulse Rate 90 91 91 Respiratory Rate 18 18 19 H Blood Pressure 105/72 119/93 H 127/75 H Blood Pressure Mean 83 101 92 Pulse Ox 95 95 98 Oxygen Delivery Method Nasal Cannula Nasal Cannula Nasal Cannula Oxygen Flow Rate (L/min) 3 3 3 MDM MDM MDM Narrative Medical decision making narrative: Patient is a 63-year-old female who presents to the emergency department chief complaint of multiple falls. On the differential diagnosis includes but not limited to intracranial hemorrhage, electrolyte abnormality, substance abuse, alcohol abuse, dehydration, UTI, pneumonia. Once workup is obtained and reviewed she will be reevaluated. Patient be given 30 cc/kg bolus of IV fluids which were ordered at 10:35 AM. This is based on ideal body weight as she has aBMI of greater than 30. Patient is a CBC reviewed showed no evidence leukocytosis white blood count normal at 9, hemoglobin 10.8, platelet count was 192. Patient's INR was 0.9, PTof 12.5. Patient's sodium was 138, potassium low indicating hypokalemia at 2.6 she was given oral supplementation and IV replacement as well, creatinine was elevated 3.19. Patient's magnesium level was 1.6 normal, AST and ALT were 30 and 23. Patient's troponin was 41 with a delta troponin of 34. Patient's EKG reviewed and showed sinus rhythm with a rate of 91 bpm. Patient urinalysis reviewed showed no evidence of infection. Patient CT head and brain without contrast showed no fracture seen no intracranial hemorrhage or other acute processes noted. Patient CT cervical spine reviewed showed no acute fracture degenerative changes cervical spine. Patient's CT abdomen pelvis reviewed showed hepatomegaly with fatty infiltration fecal retention in the colon consistent constipation colonic diverticulosis without acute diverticulitis. Patient chest x-ray reviewed by myself by radiology which showed no acute cardiopulmonary processes. Stable right hemidiaphragm elevation. Postsurgical changes of the thoracic lumbar spine again partially visualized without apparentinterval change. Will discuss case with hospitalist for admission for her PEDRO, hypokalemia, generalized weakness with multiple falls. Discussed case with hospitalist for admission Dr. Winkler who accept patient for admission. Patient was notified is agreeable spinal cord concerns answered Lab Data Labs: Laboratory Results - last 24 hr 11/07/24 11/07/24 11/07/24 11:00 11:20 12:21 WBC 9.0 RBC 3.86 L Hgb 10.8 L Hct 33.7 L MCV 87.3 MCH 28.0 MCHC 32.0 RDW Std Deviation 53.4 H RDW Coeff of Jaun 16.9 H Plt Count 192 MPV 9.5 Immature Gran % (Auto) 1.600 H Neut % (Auto) 84.0 H Lymph % (Auto) 9.7 L Woodward % (Auto) 4.1 Eos % (Auto) 0.4 Baso % (Auto) 0.2 Absolute Neuts (auto) 7.6 Absolute Lymphs (auto) 0.87 Nucleated RBC % 0 PT 12.5 INR 0.9 APTT 24.6 Sodium 138 Potassium 2.6 L* Chloride 101 Carbon Dioxide 21.2 Anion Gap 17 H BUN 39 H Creatinine 3.19 H Estim Creat Clear Calc 24.26 L Est GFR (MDRD) Non-Af 16 L BUN/Creatinine Ratio 12.1 Glucose 94 Lactic Acid 1.1 Calcium 9.5 Magnesium Total Bilirubin 0.60 AST 38 H ALT 23 Alkaline Phosphatase 120 H Total Creatine Kinase 54 Troponin T High Sens 41 H Troponin T Hi Sens 2 Hr Troponin T Hi Sens 4Hr Total Protein 6.7 Albumin 3.9 Globulin 2.9 Albumin/Globulin Ratio 1.4 Urine Color Yellow Urine Clarity Clear Urine pH 6.0 Ur Specific Lorton 1.010 Urine Protein 100 H Urine Glucose (UA) Normal Urine Ketones Negative Urine Occult Blood 25 H Urine Nitrite Negative Urine Bilirubin Negative Urine Urobilinogen Normal Ur Leukocyte Esterase Negative Urine RBC 0-5 SEEN Urine WBC 0-5 SEEN Ur Squamous Epith Cells 5-10 SEEN Urine Bacteria RARE Urine Mucus 0 SEEN Urine Opiates Screen PRESUMPTIVE POSITIVE U Buprenorphine Qual NEGATIVE Ur Oxycodone Screen NEGATIVE Urine Methadone Screen NEGATIVE Urine Fentanyl Screen NEGATIVE Ur Barbiturates Screen NEGATIVE Ur Phencyclidine Scrn NEGATIVE Ur Amphetamines Screen NEGATIVE U Benzodiazepines Scrn PRESUMPTIVE POSITIVE Urine Cocaine Screen NEGATIVE U Cannabinoids Screen NEGATIVE Ethyl Alcohol < 10.1 11/07/24 11/07/24 13:00 15:40 WBC RBC Hgb Hct MCV MCH MCHC RDW Std Deviation RDW Coeff of Jaun Plt Count MPV Immature Gran % (Auto) Neut % (Auto) Lymph % (Auto) Woodward % (Auto) Eos % (Auto) Baso % (Auto) Absolute Neuts (auto) Absolute Lymphs (auto) Nucleated RBC % PT INR APTT Sodium Potassium Chloride Carbon Dioxide Anion Gap BUN Creatinine Estim Creat Clear Calc Est GFR (MDRD) Non-Af BUN/Creatinine Ratio Glucose Lactic Acid Calcium Magnesium 1.6 Total Bilirubin AST ALT Alkaline Phosphatase Total Creatine Kinase Troponin T High Sens Troponin T Hi Sens 2 Hr 34 H Troponin T Hi Sens 4Hr 33 H Total Protein Albumin Globulin Albumin/Globulin Ratio Urine Color Urine Clarity Urine pH Ur Specific Lorton Urine Protein Urine Glucose (UA) Urine Ketones Urine Occult Blood Urine Nitrite Urine Bilirubin Urine Urobilinogen Ur Leukocyte Esterase Urine RBC Urine WBC Ur Squamous Epith Cells Urine Bacteria Urine Mucus Urine Opiates Screen U Buprenorphine Qual Ur Oxycodone Screen Urine Methadone Screen Urine Fentanyl Screen Ur Barbiturates Screen Ur Phencyclidine Scrn Ur Amphetamines Screen U Benzodiazepines Scrn Urine Cocaine Screen U Cannabinoids Screen Ethyl Alcohol Radiography Diagnostic Testing: Clinical Impression(s) from Imaging Studies Abdomen/Pelvis CT 11/07/24 10:31 IMPRESSION: 1. Hepatomegaly with fatty infiltration. 2. Fecal retention in the colon consistent with constipation. 3. Colonic diverticulosis without acute diverticulitis. Reading Location: [facility] Brain CT 11/07/24 10:31 IMPRESSION: 1. No fracture seen. 2. No intracranial hemorrhage or other acute process is noted Reading Location: [address] Cervical Spine CT 11/07/24 10:31 IMPRESSION: 1. No acute fracture. 2. Degenerative changes cervical spine as described. Reading Location: [facility] Chest X-Ray 11/07/24 13:30 IMPRESSION: Postsurgical changes of the thoracolumbar spine again partially visualized, without apparent interval change. Stable right hemidiaphragm elevation. The examination is limited by hypoinflation, body habitus, and AP portable technique, as well as relative hypoinflation. Increased left basilar airspace disease is seen, with differential diagnosis including atelectasis, less likely pneumonitis. No evidence of pulmonary edema. No pleural effusion is clearly seen. No pneumothorax is evident. The cardiomediastinal silhouette is stable, without evidence of cardiomegaly. Reading Location: [address] Discharge Plan Triage Chief Complaint: Fall ED Provider: Armen Gonzales Dx/Rx/DC Orders Clinical Impression: Multiple falls, Acute kidney injury, Acute hypokalemia Prescriptions: No Action Dulera 100-5 mcg/actuation HFA aerosol inhaler 2 puff inhalation BID Qty: 13 3RF pantoprazole 40 MG tablet 40 mg PO DAILY rosuvastatin 40 mg Tablet 40 mg PO QHS melatonin 10 mg Tablet 10 mg PO QHS carvedilol 3.125 mg Tablet 3.125 mg PO BID Qty: 60 0RF temazepam 30 mg capsule 30 mg PO QHS fluconazole 100 mg tablet 100 mg PO QWEEK cyclobenzaprine 5 mg tablet 5 mg PO TID PRN PRN (Reason: muscle spasm) sennosides [Aminata-guy] 8.6 mg tablet 8.6 mg PO BID PRN PRN (Reason: constipation) magnesium 200 mg tablet 200 mg PO DAILY ferrous sulfate [iron] 325 mg (65 mg iron) tablet 325 mg PO QDAY cyanocobalamin (vitamin B-12) [Vitamin B-12] 1,000 mcg tablet 1,000 mcg PO DAILY Mounjaro 7.5 mg/0.5 mL pen injector 7.5 mg subcut QWEEK alprazolam 0.5 mg tablet 0.5 mg PO BID fluoxetine 40 mg capsule 40 mg PO DAILY Linzess 290 mcg capsule 290 mcg PO DAILY trospium 20 mg tablet 20 mg PO BID ergocalciferol (vitamin D2) 1,250 mcg (50,000 unit) capsule 1,250 mcg PO QWEEK albuterol sulfate 90 mcg/actuation HFA aerosol inhaler 1 puff inhalation Q6H PRN (Reason: shortness of breath or wheezing) Qty: 6.7 0RF metformin 500 mg tablet extended release 24 hr 500 mg PO BID Primary Care Provider: Corin Mariscal Referrals: Corin Mariscal MD [Primary Care Provider] - Print Language: [place] Disposition Disposition: Acute Care Hospital [facility] What to do if you have Problems For any increased pain, shortness of breath, bleeding, nausea or vomiting, chestpain, or any unexpected problems, contact your Primary Care Provider. Call [facility] ([phone]) or report to the closest Emergency Room. Call 911 if necessary. 11/07/24 8076 <Electronically signed by Armen Gonzales DO> Cosigner Signature (if applicable): CC: Dr. Corin Mariscal MD ~ Signed [facility] Work Phone: [phone] History and physical note Author Kaitlyn Winkler [facility] Note Date/Time November 07, 2024 5:28p m [facility] Medical Records Department [address] [place] [address] H&P Exam - Hospitalist 11/07/24 1619 MR#: [id number] Acct: [id number] Name: ALFIE HOGAN Rep #:[id number] : 1960 63 From: Kaitlyn Winkler DO PCP: Dr. Corin Mariscal MD Status:REG ER Location: ED HPI - General General Date of Admission: 11/07/24 Date of Service: 11/07/24 Chief Complaint: Falls HPI Narrative ALFIE HOGAN, is a 63 F who presented to the emergency department at [facility] on 11/07/2024 with a chief complaint of falls.d patienthas had multiple falls in the last several days. She reports at least 4 days and hit her head 1 time. On presentation she was complaining of some low back and buttock pain. She also reported that she not been eating or drinking much recently. Sunday of last week she had 4 teeth extracted and then ended up with dry socket and one of them so her p.o. intake has been drastically reduced due to mouth pain. She had been on clindamycin and had been taking it without missing any doses. She lives alone but does have family in the area. She does appear to have some polypharmacy if she is on temazepam and Xanax written by hernurse practitioner psychiatrist. She is also on anticholinergic with trospium for urinary incontinence. I suspect that this in conjunction with her PEDRO is causing her falls as noted above. I did discuss the need to reduce doses with her and consideration of either discontinuing her temazepam or Ativan and she became very tearful. 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 She did demonstrate frustration about it however. Vital signs on presentation showed a temperature of 98.1, pulse was 93, respiratory was 24, blood pressure was 105/73 and pulse ox was 97% on her baseline 3 L nasal cannula. CBC shows a chronic stable anemia but was otherwiseunremarkable. Coags are normal. Chemistry panel shows marked hypokalemia with potassium of 2.6, anion gap of 17 with a normal serum bicarb however it is much lower than her baseline currently at 21.2. BUN is 39 with a serum creatinine of3.19. It appears her baseline serum creatinine runs between 0.8 and 1.2. Lactic acid was normal at 1.1. Magnesium was normal at 1.6. Cardiac enzymes are slightly elevated with her initial troponin being 41 and subsequent 2 and 4-hour troponins being 34 and 33 respectively. UA is consistent with some dehydration but not consistent with infection. Toxicology screen was positive for opiates. She has been on Vicodin at home for her mouth. Also positive for benzodiazepines which she takes chronically. F alcohol level is less than 10. CT abdomen pelvis is negative for any acute findings other than constipation. She also does appear to have hepatomegaly with fatty infiltration. CT of the brain is unremarkable for any acute findings. CT of the cervical spine is negative for any acute findings. Chest x-ray is unremarkable. EKG was unremarkable for any ST-T wave changes concerning for acute ischemia. She does have a chronic right bundle branch block. Given her PEDRO and frequent falls, she will be admitted to the hospital and placed on aggressive hydration with workup for her PEDRO as well as electrolyte replacement. [facility] Medical History Normocytic anemia Diabetes Chronic pain CPAP (continuous positive airway pressure) dependence Contusion of left hip Contusion of rib on right side Contusion of left shoulder Contusion of scalp Closed fracture of fibula, proximal, left Pyuria Substance abuse Kidney disease Former smoker BiPAP (biphasic positive airway pressure) dependence Sleep apnea On home oxygen therapy Hypertension Dementia Alcohol withdrawal Alcohol abuse Admitted to alcohol detoxification center Medical marijuana use Frequent falls DVT (deep venous thrombosis) Right ventricular systolic dysfunction Right bundle branch block (RBBB) Essential (primary) hypertension Sepsis Abdominal pain Migraine Chronic renal insufficiency, stage I Pancytopenia Respiratory tract infection due to COVID-19 virus Endocarditis Gastritis Restrictive lung disease Colitis Osteoarthritis Chronic renal failure Depression GENNARO (obstructive sleep apnea) Pneumonia Bronchitis Asthma COPD (chronic obstructive pulmonary disease) Morbid obesity HLD (hyperlipidemia) Bronchiectasis Idiopathic right ventricular dilation Thrombocytopenia Leukopenia Abnormal liver CT Anemia Anxiety Respiratory insufficiency Respiratory failure with hypoxia Colitis with rectal bleeding History of umbilical hernia History of diarrhea Arthritis Gastroesophageal reflux disease Home Medications ?Medication ?Instructions ?Recorded ?Last Taken ?Type pantoprazole 40 mg tablet,delayed 40 mg PO DAILY ACID REFLUX 12/09/18 07/12/24 History release rosuvastatin 40 mg tablet 40 mg PO QHS CHOLESTEROL 07/12/24 History melatonin 10 mg tablet 10 mg PO QHS SLEEP 07/16/22 07/12/24 History carvedilol 3.125 mg tablet 3.125 mg PO BID HEART #60 tabs 07/20/22 07/12/24 Rx mometasone-formoterol HFA 100 2 puff inhalation BID SH ORTNESS OF 03/05/23 07/12/24 Rx mcg-5 mcg/actuation aerosol BREATH/WHEEZING #13 grams inhaler (Dulera) temazepam 30 mg capsule 30 mg PO QHS INSOMNIA 07/12/24 History alprazolam 0.5 mg tablet 0.5 mg PO BID anxiety 07/12/24 History fluoxetine 40 mg capsule 40 mg PO DAILY depression 07/12/24 History linaclotide 290 mcg capsule 290 mcg PO DAILY bowel fun ction 01/28/24 07/12/24 History (Linzess) trospium 20 mg tablet 20 mg PO BID see 01/28/24 07/12/24 History ergocalciferol (vitamin D2) 1,250 1,250 mcg PO QWEEK 0 07/15/24 Unknown History mcg (50,000 unit) capsule albuterol sulfate 90 mcg/actuation 1 puff inhalation Q 6H PRN 07/17/24 Unknown Rx aerosol inhaler shortness of breath or wheez ing #6.7 grams cyanocobalamin (vitamin B-12) 1,000 mcg PO DAILY 08/09 Unknown History 1,000 mcg tablet (Vitamin B-12) cyclobenzaprine 5 mg tablet 5 mg PO TID PRN PRN muscle spasm 08/09/24 Unknown History ferrous sulfate 325 mg (65 mg 325 mg PO QDAY 08/09/24 Unknown History iron) tablet (iron) fluconazole 100 mg tablet 100 mg PO QWEEK 08/09/24 Unk nown History magnesium 200 mg tablet 200 mg PO DAILY 08/09/24 Unk nown History sennosides 8.6 mg tablet (Aminata-guy) 8.6 mg PO BID PRN PRN constipation 08/09/24 Unknown History metformin 500 mg tablet,extended 500 mg PO BID 5 Unknown History release 24 hr tirzepatide 7.5 mg/0.5 mL 7.5 mg subcut QWEEK 11/07/24 Unknown History subcutaneous pen injector (Mounjaro) Allergy/AdvReac Type Severity Reaction Status Date / Time house dust Allergy ITCHY EYES Verified 11/07/24 10:21 Penicillins Allergy Hives Verified 11/07/24 10:21 Seasonal Allergies: Uncoded Allergy ITCHY EYES Verified 11/07/24 10:21 Family History Father Colon cancer Mother Cancer pancreatic Surgical History History of tubal ligation History of appendectomy History of hysterectomy History of cholecystectomy Social History household members: none Smoking Status: Former smoker Tobacco: How many years used: 25 how long ago did patient quit smokin, 0.5ppd second hand exposure: Yes alcohol intake: former substance use type: does not use ROS Constitutional Constitutional: Reports weakness and other Details: Frequent falls ; Denies anorexia, change in weight, chills, fatigue, fever(s), malaise or night sweats Eyes Eyes: Denies blurry vision, change in eye color, change in vision, discharge from eye(s), double vision, erythema, eye pain, loss of vision or other ENT HEENT: Reports other Details: Mouth pain due to recent tooth extractions- markedly improved ; Denies abnormal hearing, dysphagia, ear pain, epistaxis, headache(s), hearing loss, nasal congestion, nasal discharge, post nasal drip, sinus pressure or sorethroat Cardiovascular Cardiovascular: Denies chest pain, claudication, dyspnea on exertion, edema, lightheadedness, orthopnea, palpitations, paroxysmal nocturnal dyspnea, rapid heart rate, syncope or other Respiratory/Chest Respiratory/Chest: Denies cough, dyspnea, excessive phlegm production, hemoptysis, productive cough, shortness of breath at rest, shortness of breath with exertion, wheezing or other Gastrointestinal Gastrointestinal: Denies abdominal pain, coffee ground emesis, constipation, diarrhea, dyspepsia, hematemesis, hematochezia, loose stools, melena, nausea, vomiting or other Genitourinary Genitourinary: Denies burning urination, difficulty urinating, dysuria, hematuria, nocturia, urinary frequency, urinary hesitancy, urinary incontinence,urinary urgency or other Musculoskeletal Musculoskeletal: Reports back pain and other Details: Buttock pain ; Denies arthralgias, joint pain, joint stiffness, joint swelling, myalgias or neck pain Neurologic Neurologic: Denies abnormal gait, abnormal speech, confusion, disequilibrium, dizziness, focal weakness, headache(s), numbness, paresthesias, seizure-like activity, seizures, syncope, tingling, tremor(s) or other Psychiatric Psychiatric: Reports anxiety and depression; Denies homicidal ideation, suicidalideation or other Endocrine Endocrinology: Denies change in body appearance, cold intolerance, excessive sweating, heat intolerance, polydipsia, polyuria or other Hematologic/Lymphatic Hematologic/Lymphatic: Denies anemia, easy bleeding, easy bruising, lymphadenopathy or other Allergic/Immunologic Allergic/Immunologic: Denies rhinitis, hives, eczemia, asthma or other Vital Signs Vital Signs Vital Signs: 11/07/24 10:18 11/07/24 10:41 11/07/24 12:18 Temperature 98.1 F 98.1 F Temperature Source Oral Oral Pulse Rate 93 91 Respiratory Rate 24 H 22 H Blood Pressure 105/73 106/69 Blood Pressure Mean 83 81 Pulse Ox 97 98 Oxygen Delivery Method Nasal Cannula Nasal Cannula Nasal Cannula Oxygen Flow Rate (L/min) 3 3 3 11/07/24 12:52 11/07/24 14:37 11/07/24 15:36 Temperature 97.9 F 98.1 F 98.1 F Temperature Source Oral Oral Oral Pulse Rate 90 91 91 Respiratory Rate 18 18 19 H Blood Pressure 105/72 119/93 H 127/75 H Blood Pressure Mean 83 101 92 Pulse Ox 95 95 98 Oxygen Delivery Method Nasal Cannula Nasal Cannula Nasal Cannula Oxygen Flow Rate (L/min) 3 3 3 Weight Weight: 114.3 kg Body Mass Index (BMI) 38.2 Physical Exam Const alert, no apparent distress and well nourished; Negative for average body habitus or healthy appearing Constitutional Narrative: Morbidly obese, upper middle-aged, white female, sitting up in bed, appears older than stated age, tearful at times, oriented to self place and month but got confused initially on year General Appearance: cooperative HEENT normocephalic, head/scalp atraumatic and hearing grossly normal bilaterally HEENT Narrative: Mucous membranes and lips are markedly dry, dentures in place, Mallampati 3, no thrush, pill fragments remain in mouth from potassium supplementation Eyes Eyes Narrative: No scleral icterus Neck supple Neck Narrative: Neck is short and thick, trachea midline Resp normal respiratory effort, no retractions, no use of accessory muscles and clearto auscultation bilaterally Resp Narrative: Diminished diffusely Auscultation: rales; Negative for rhonchi or wheezes Cardio regular rate, regular rhythm, S1 normal heart sound, S2 normal heart sound, no murmurs, no rub, no gallops and no clicks GI normal to inspection, nondistended, normoactive bowel sounds, soft to palpation and non-tender GI Narrative: Protuberant abdomen Extremity no clubbing, cyanosis or edema Extremity Narrative: Pedal pulses are 2+, radial pulses are 2+ Neuro moves all extremities and no focal motor deficits Neuro Narrative: Patient was oriented to time except for month had some confusion with this Sensorium / Orientation: awake, alert, oriented to person and oriented to place Speech: speech normal Psych Psych Narrative: Tearful at times Mood & Affect: anxious Results Lab / Micro Data 11/07/24 11:20 11/07/24 11:00 Labs: Laboratory Results - last 24 hr 11/07/24 11:00: Sodium 138, Potassium 2.6 L*, Chloride 101, Carbon Dioxide 21.2,Anion Gap 17 H, BUN 39 H, Creatinine 3.19 H, Estim Creat Clear Calc 24.26 L, EstGFR (MDRD) Non-Af 16 L, BUN/Creatinine Ratio 12.1, Glucose 94, Calcium 9.5, Total Bilirubin 0.60, AST 38 H, ALT 23, Alkaline Phosphatase 120 H, Total Creatine Kinase 54, Troponin T High Sens 41 H, Total Protein 6.7, Albumin 3.9, Globulin 2.9, Albumin/Globulin Ratio 1.4 11/07/24 11:20: WBC 9.0, RBC 3.86 L, Hgb 10.8 L, Hct 33.7 L, MCV 87.3, MCH 28.0,MCHC 32.0, RDW Std Deviation 53.4 H, RDW Coeff of Jaun 16.9 H, Plt Count 192, MPV9.5, Immature Gran % (Auto) 1.600 H, Neut % (Auto) 84.0 H, Lymph % (Auto) 9.7 L,Woodward % (Auto) 4.1, Eos % (Auto) 0.4, Baso % (Auto) 0.2, Absolute Neuts (auto) 7.6, Absolute Lymphs (auto) 0.87, Nucleated RBC % 0, PT 12.5, INR 0.9, APTT 24.6, Lactic Acid 1.1, Ethyl Alcohol < 10.1 11/07/24 12:21: Urine Color Yellow, Urine Clarity Clear, Urine pH 6.0, Ur Specific Lorton 1.010, Urine Protein 100 H, Urine Glucose (UA) Normal, Urine Ketones Negative, Urine Occult Blood 25 H, Urine Nitrite Negative, Urine Bilirubin Negative, Urine Urobilinogen Normal, Ur Leukocyte Esterase Negative, Urine RBC 0-5 SEEN, Urine WBC 0-5 SEEN, Ur Squamous Epith Cells 5-10 SEEN, UrineBacteria RARE, Urine Mucus 0 SEEN, Urine Opiates Screen PRESUMPTIVE POSITIVE, U Buprenorphine Qual NEGATIVE, Ur Oxycodone Screen NEGATIVE, Urine Methadone Screen NEGATIVE, Urine Fentanyl Screen NEGATIVE, Ur Barbiturates Screen NEGATIVE, Ur Phencyclidine Scrn NEGATIVE, Ur Amphetamines Screen NEGATIVE, U Benzodiazepines Scrn PRESUMPTIVE POSITIVE, Urine Cocaine Screen NEGATIVE, U Cannabinoids Screen NEGATIVE 11/07/24 13:00: Magnesium 1.6, Troponin T Hi Sens 2 Hr 34 H 11/07/24 15:40: Troponin T Hi Sens 4Hr 33 H Imaging Radiology Impression Abdomen/Pelvis CT 11/07/24 10:31 IMPRESSION: 1. Hepatomegaly with fatty infiltration. 2. Fecal retention in the colon consistent with constipation. 3. Colonic diverticulosis without acute diverticulitis. Reading Location: [facility] Brain CT 11/07/24 10:31 IMPRESSION: 1. No fracture seen. 2. No intracranial hemorrhage or other acute process is noted Reading Location: [address] Cervical Spine CT 11/07/24 10:31 IMPRESSION: 1. No acute fracture. 2. Degenerative changes cervical spine as described. Reading Location: [id number] Chest X-Ray 11/07/24 13:30 IMPRESSION: Postsurgical changes of the thoracolumbar spine again partially visualized, without apparent interval change. Stable right hemidiaphragm elevation. The examination is limited by hypoinflation, body habitus, and AP portable technique, as well as relative hypoinflation. Increased left basilar airspace disease is seen, with differential diagnosis including atelectasis, less likely pneumonitis. No evidence of pulmonary edema. No pleural effusion is clearly seen. No pneumothorax is evident. The cardiomediastinal silhouette is stable, without evidence of cardiomegaly. Reading Location: [address] Assessment & Plan Assessment/Plan (1) PEDRO (acute kidney injury): (2) Hypokalemia: (3) Generalized weakness: (4) Debility: (5) Chronic prescription benzodiazepine use: (6) Elevated troponin: PLAN: Plan PEDRO - Seems to be secondary to dehydration with decreased p.o. intake due to oral pain related to dental extraction - Oral intake is improving and pain is decreasing - Check urine sodium and urine creatinine - Will dose reduce temazepam to 15 mg at at bedtime as I do think polypharmacy is contributing to her falls - Continue IV fluids with LR at 150 cc/h for 4 L - Check renal ultrasound - Will hold off on nephrology consultation for now as there are no needs for renal replacement therapy with the hopes that renal function improves quickly with IV fluids Troponin elevation - Suspect related to PEDRO and decreased clearance - Patient without chest pain - EKG is unremarkable for any acute finding consistent with acute ischemia - Will defer further workup at this time Hypokalemia - Magnesium is within normal limits - Patient was given oral and IV potassium in the emergency department - Recheck in a.m. Generalized weakness/debility/falls - Suspect this is multifactorial but does include polypharmacy -Would recommend reevaluation of her benzodiazepine use by her psychiatrist - PT/OT consultation - Case management/social work consultation for assistance with discharge planning Chronic hypoxic respiratory failure secondary to COPD - Patient initially denied having COPD however I reviewed records and previous pulmonary notes that she does indeed have COPD - FEV1 is 69% predicted - Continue home inhalers - I did discuss with the patient the fact that she does have COPD for future health records purposes - As needed albuterol - Recommend outpatient follow-up with pulmonary medicine as previously scheduled GENNARO - Patient noncompliant - Continue home O2 3 L nocturnally and uptitrate to keep sats between 88 and 90%while sleeping DM-2 - Hold home oral agents - Hold home injections - SSI with Accu-Cheks as ordered Essential hypertension/hyperlipidemia - Hold Coreg for now with significant dehydration his blood pressures are somewhat soft - As needed labetalol - Continue home statin GERD - Continue home PPI History of iron deficiency - Continue iron - Hemoglobin is currently stable and normal Depression/anxiety - Continue Xanax - Continue fluoxetine Severe insomnia - Continue dose reduced temazepam due to renal dysfunction - Continue home melatonin IBS/constipation - Restart Linzess at discharge - Continue home bowel regimen Recent dental extraction - As needed Tylenol - Patient completed clindamycin Obesity -BMI is 38.3 -Recommend weight loss -Complicates treatment, prognosis, outcomes DVT prophylaxis - Heparin 3 times daily CODE STATUS - DNR CCA okay for short-term intubation Charges/Coding Visit Charges Inpatient E&M: 21768 Init Hosp L3 11/07/24 1728 <Electronically signed by Kaitlyn Winkler DO> Cosigner Signature (if applicable): CC: Dr. Corin Mariscal MD; Dr. Kaitlyn Winkler DO~ Signed [facility] Work Phone: [phone] Radiology Diagnostic study [facility]06-06-2025 Radiology Diagnostic study [facility]06-06-2025 Radiology Diagnostic study [facility] 11-07-2024 Radiology Diagnostic study [facility]05-16-2025 Telephone encounter Note* Telephone Encounter - Aiyana Acevedo LPN - 10/17/2024 8:47 AM EDT Patient is aware of all information and will have MMA drawn 10/31/2024, when here for other labs. Aiyana Acevedo LPN [facility]05-16-2025 Miscellaneous Notes* Telephone Encounter - Aiyana Acevedo LPN - 10/17/2024 8:47 AM EDT Patient is aware of all information and will have MMA drawn 10/31/2024, when here for other labs. Aiyana Acevedo LPN * Telephone Encounter - Jose Dennison DO - 10/16/2024 4:50 PM EDT Can let her know her CBC is now essentially normal. Remainder of the lab work was normal but B12 was in the low normal range so I would like to get an MMA to verify if there is underlying B12 deficiency. Order filed. Jose Dennison DO [facility] Telephone encounter Note * Telephone Encounter - Jose Dennison DO - 10/16/2024 4:50 PM EDT Can let her know her CBC is now essentially normal. Remainder of the lab work was normal but B12 was in the low normal range so I would like to get an MMA to verify if there is underlying B12 deficiency. Order filed. Jose Dennison DO [facility]05-14-2025 NoteHNO ID: [id number] Author: JOSE DENNISON DO Service: ? Author Type: Physician Type: Progress Notes Filed: 10/15/2024 15:55 Note Text: Patient referred by Dr. Mariscal for pancytopenia. HPI: The patient is a 63-year-old female with a past medical history as outlined below. CT abdomen pelvis July 2023 demonstrated no evidence of hepatic abnormality. Spleen was noted to be normal size without any cystic or focal masses. Admitted to [facility] in August for hyperglycemia. Was found to be anemic. Iron was 42 mcg/dL. TIBC normal at 436 mcg/dL iron saturation 10% and the ferritin was 27 ng/mL. Most recent CBC from 09/30/2024 demonstrated white count of 6900. The differential revealed an ANC of 5900. Absolute lymphocyte count was 650. Hemoglobin 10.9 g/dL. MCV 90.6. MCH 26.9 MCHC 29.7. The RDW was 13.9. Platelet count 148,000. In [address] [facility] panel revealed previous infection. Hepatitis B antigen negative. Hepatitis C antibody negative. HIV nonreactive. Doesn't feel well in general. 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 Diagnosed with GENNARO Was seeing Dr. Padron. Last visit 06/2023. Quit smoking 2008. No alcohol in 3 years. DVT provoked by right ankle fracture sometime 2021. Bone marrow biopsy at ?[facility] 2021. Was started on iron sucrose. Scheduled for two more doses. PAST MEDICAL HISTORY Diagnosis Date Abdominal pain, right lower quadrant Acute gastritis without mention of hemorrhage Acute renal failure 2011 2012 episodes of Cr elevation Anemia Anxiety Arthritis, multiple joint involvement Asthma (HCC) DDD (degenerative disc disease), lumbar Depression with anxiety Diaphragmatic hernia without mention of obstruction or gangrene Dyspepsia and other specified disorders of function of stomach Esophagitis, unspecified Hyperlipidemia 11/28/2011 Hypertension Kidney disease GENNARO (obstructive sleep apnea) on CPAP Other and unspecified ovarian cyst Ovarian cyst Paralysis of diaphragm Phlebitis and thrombophlebitis of unspecified site Pulmonary hypertension (HCC) Tobacco use disorder Urinary calculus, unspecified Renal stones PAST SURGICAL HISTORY Procedure Laterality Date APPENDECTOMY COLONOSCOPY FLX DX W/COLLJ SPEC WHEN PFRMD 09/15/2005 [facility] Colonoscopy EGD TRANSORAL BIOPSY SINGLE/MULTIPLE 08/30/2006 EGD TRANSORAL BIOPSY SINGLE/MULTIPLE 04/11/2011 LAPS SURG CHOLECYSTECTOMY W/CHOLANGIOGRAPHY 08/30/2006 OOPHORECTOMY, PART/TOTAL UNILAT/BILAT 2005 bilateral oophorectomy benign cysts, appendectomy PAST SURGICAL HISTORY OF 2000?, 2009 ruptured disc L3-L4 repair; fusion PAST SURGICAL HISTORY OF tendonectomy right elbow PAST SURGICAL HISTORY OF 2008 left MEAGAN PAST SURGICAL HISTORY OF 12/30/2014 right MEAGAN PAST SURGICAL HISTORY OF 08/09/2023 multi layer fusion L3, 4, 5 RPR UMBILICAL HRNA 5 YRS/> REDUCIBLE grade 6 Hernia repair, umbilical >5yr TONSILLECTOMY HX VAGINAL HYSTERECTOMY UTERUS 250 GM/< adenomysis metFORMIN ER (GLUCOPHAGE XR) 500 mg 24 hr tablet Take 1 tablet by mouth two times a day. ALPRAZolam (XANAX) 0.5 mg tablet Take 0.5 mg by mouth three times a day as needed. MOUNJARO 7.5 mg/0.5 mL pen injector Inject 7.5 mg subcutaneously one time a week. carvedilol (COREG) 3.125 mg tablet Take 3.125 mg by mouth two times a day with meals. rosuvastatin (CRESTOR) 40 mg tablet Take 40 mg by mouth once daily. magnesium oxide (MAG-OX) 400 mg (241.3 mg magnesium) tablet Take 1 tablet by mouth once daily. FLUoxetine (PROZAC) 10 mg capsule Take 40 mg by mouth once daily. docusate sodium (COLACE) 100 mg capsule Take 2 capsules by mouth as needed. prochlorperazine (COMPAZINE) 10 mg tablet Take 1 tablet by mouth every 6 hours as needed for Nausea/Vomiting. mometasone-formoterol (DULERA) 100-5 mcg/actuation inhaler Inhale 2 Puffs as instructed twice daily. pantoprazole DR (PROTONIX) 40 mg tablet Take 40 mg by mouth once daily. albuterol HFA (VENTOLIN HFA) 90 mcg/actuation inhaler Inhale 2 Puffs as instructed every 4 hours as needed for Wheezing/Shortness of Breath. trospium (SANCTURA) 20 mg tablet Take 20 mg by mouth two times a day. temazepam (RESTORIL) 30 mg cap Take 30 mg by mouth at bedtime as needed. traZODone (DESYREL) 150 mg tablet Take 150 mg by mouth daily at bedtime. (Patient not taking: Reported on 10/15/2024) apixaban (ELIQUIS) 5 mg (74 tabs) Take 2 tablets (10 mg) by mouth twice daily for 7 days. Then take 1 tablet (5 mg) by mouth twice daily for 23 days (Patient not taking: Reported on 07/05/2023) QUEtiapine (SEROQUEL) 100 mg tablet 1 tablet daily at bedtime. (Patient not taking: Reported on 10/15/2024) thiamine (VITAMIN B1) 100 mg tablet Take 100 mg by mouth three times daily. (Patient not taking: Reported on 10/15/2024) rivastigmine (EXELON) 4.6 mg/24 hour patch 1 Patch once daily. (Patient not taking: Reported on 10/15/2024) memantine (NAMENDA) 5 mg tab (more content not included)...[facility]05-14-2025 History of Present illness Narrative* ElviJoseDO - 10/15/2024 2:56 PM EDT Patient referred by Dr. Mariscal for pancytopenia. HPI: The patient is a 63-year-old female with a past medical history as outlined below. CT abdomen pelvis July 2023 demonstrated no evidence of hepatic abnormality. Spleen was noted to be normal size without any cystic or focal masses. Admitted to [facility] in August for hyperglycemia. Was found to be anemic. Iron was42 mcg/dL. TIBC normal at 436 mcg/dL iron saturation 10% and the ferritin was 27 ng/mL. Most recent CBC from 09/30/2024 demonstrated white count of 6900. The differential revealed an ANC of 5900. Absolute lymphocyte count was 650. Hemoglobin 10.9 g/dL. MCV 90.6. MCH 26.9 MCHC 29.7. The RDW was 13.9. Platelet count 148,000. In [address] [facility] panel revealed previous infection. Hepatitis B antigen negative. Hepatitis C antibody negative. HIV nonreactive. Doesn't feel well in general. 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 Diagnosed with GENNARO Was seeing Dr. Padron. Last visit 06/2023. Quit smoking 2008. No alcohol in 3 years. DVT provoked by right ankle fracture sometime 2021. Bone marrow biopsy at [facility] 2021. Was started on iron sucrose. Scheduled for two more doses. PAST MEDICAL HISTORY Diagnosis Date Abdominal pain, right lower quadrant Acute gastritis without mention of hemorrhage Acute renal failure 2011 2012 episodes of Cr elevation Anemia Anxiety Arthritis, multiple joint involvement Asthma (HCC) DDD (degenerative disc disease), lumbar Depression with anxiety Diaphragmatic hernia without mention of obstruction or gangrene Dyspepsia and other specified disorders of function of stomach Esophagitis, unspecified Hyperlipidemia 11/28/2011 Hypertension Kidney disease GENNARO (obstructive sleep apnea) on CPAP Other and unspecified ovarian cyst Ovarian cyst Paralysis of diaphragm Phlebitis and thrombophlebitis of unspecified site Pulmonary hypertension (HCC) Tobacco use disorder Urinary calculus, unspecified Renal stones PAST SURGICAL HISTORY Procedure Laterality Date APPENDECTOMY COLONOSCOPY FLX DX W/COLLJ SPEC WHEN PFRMD 09/15/2005 [facility] Colonoscopy EGD TRANSORAL BIOPSY SINGLE/MULTIPLE 08/30/2006 EGD TRANSORAL BIOPSY SINGLE/MULTIPLE 04/11/2011 LAPS SURG CHOLECYSTECTOMY W/CHOLANGIOGRAPHY 08/30/2006 OOPHORECTOMY, PART/TOTAL UNILAT/BILAT 2005 bilateral oophorectomy benign cysts, appendectomy PAST SURGICAL HISTORY OF 2000?, 2009 ruptured disc L3-L4 repair; fusion PAST SURGICAL HISTORY OF tendonectomy right elbow PAST SURGICAL HISTORY OF 2008 left MEAGAN PAST SURGICAL HISTORY OF 12/30/2014 right MEAGAN PAST SURGICAL HISTORY OF 08/09/2023 multi layer fusion L3, 4, 5 RPR UMBILICAL HRNA 5 YRS/> REDUCIBLE grade 6 Hernia repair, umbilical >5yr TONSILLECTOMY HX VAGINAL HYSTERECTOMY UTERUS 250 GM/< adenomysis metFORMIN ER (GLUCOPHAGE XR) 500 mg 24 hr tablet Take 1 tablet by mouth two times a day. ALPRAZolam (XANAX) 0.5 mg tablet Take 0.5 mg by mouth three times a day as needed. MOUNJARO 7.5 mg/0.5 mL pen injector Inject 7.5 mg subcutaneously one time a week. carvedilol (COREG) 3.125 mg tablet Take 3.125 mg by mouth two times a day with meals. rosuvastatin (CRESTOR) 40 mg tablet Take 40 mg by mouth once daily. magnesium oxide (MAG-OX) 400 mg (241.3 mg magnesium) tablet Take 1 tablet by mouth once daily. FLUoxetine (PROZAC) 10 mg capsule Take 40 mg by mouth once daily. docusate sodium (COLACE) 100 mg capsule Take 2 capsules by mouth as needed. prochlorperazine (COMPAZINE) 10 mg tablet Take 1 tablet by mouth every 6 hours as needed for Nausea/Vomiting. mometasone-formoterol (DULERA) 100-5 mcg/actuation inhaler Inhale 2 Puffs as instructed twice daily. pantoprazole DR (PROTONIX) 40 mg tablet Take 40 mg by mouth once daily. albuterol HFA (VENTOLIN HFA) 90 mcg/actuation inhaler Inhale 2 Puffs as instructed every 4 hours asneeded for Wheezing/Shortness of Breath. trospium (SANCTURA) 20 mg tablet Take 20 mg by mouth two times a day. temazepam (RESTORIL) 30 mg cap Take 30 mg by mouth at bedtime as needed. traZODone (DESYREL) 150 mg tablet Take 150 mg by mouth daily at bedtime. (Patient not taking: Reported on 10/15/2024) apixaban (ELIQUIS) 5 mg (74 tabs) Take 2 tablets (10 mg) by mouth twice daily for 7 days. Then take1 tablet (5 mg) by mouth twice daily for 23 days (Patient not taking: Reported on 07/05/2023) QUEtiapine (SEROQUEL) 100 mg tablet 1 tablet daily at bedtime. (Patient not taking: Reported on 10/15/2024) thiamine (VITAMIN B1) 100 mg tablet Take 100 mg by mouth three times daily. (Patient not taking: Reported on 10/15/2024) rivastigmine (EXELON) 4.6 mg/24 hour patch 1 Patch once daily. (Patient not taking: Reported on 10/15/2024) memantine (NAMENDA) 5 mg tablet Take 5 mg by mouth once daily. (Patient not taking: Reported on 10/15/2024) hydrOXYzine HCl (ATARAX) 50 mg tablet Take 50 mg by mouth three times daily as needed. (Patient nottaking: Reported on 10/15/2024) folic acid 1 mg tablet Take 1 mg by mouth once daily. (Patient not taking: Reported on 10/15/2024) busPIRone (BUSPAR) 5 mg tablet Take 5 mg by mouth three times daily. (Patient not taking: Reported on 10/15/2024) benztropine (COGENTIN) 0.5 mg tablet Take 0.5 mg by mouth twice daily as needed. (Patient not taking: Reported on 10/15/2024) niacin (NIACIN) 500 mg tablet Take 1 tablet by mouth twice daily with meals. (Patient not taking: Reported on 10/15/2024) potassium chloride (K-TAB) 10 mEq tablet Take 6 tablets by mouth twice daily. (Patient not taking: Reported on 10/15/2024) ALLERGIES Allergen Reactions Cat Hair Standardiz* Other: See Comments Dust Other: See Comments sneezing Penicillins Percocet [Oxycodone* Itching Seasonal Allergies Other: See Comments ragweed, cats, pollen cause sneezing and eyes watering Social History Tobacco Use Smoking status: Former Current packs/day: 0.10 Average packs/day: 0.1 packs/day for 20.0 years (2.0 ttl pk-yrs) Types: Cigarettes Start date: 12/15/2009 Smokeless tobacco: Never Tobacco comments: quit in 2009 Vaping Use Vaping status: Never Used Substance Use Topics Alcohol use: No Alcohol/week: 1.0 - 2.0 standard drink of alcohol Types: 1 - 2 Glasses of Wine (5oz) per week Comment: 90 days alcohol free Drug use: No FAMILY HISTORY Problem Relation Age of Onset Cancer Mother pancreatic Hypertension Father Colon Cancer Father 72 Heart Father No Known Problems Sister No Known Problems Sister Diabetes Brother Hypertension Brother Stroke Maternal Grandmother Cancer Maternal Grandfather stomach Colon Cancer Paternal Grandmother Stroke Paternal Grandfather REVIEW OF SYSTEMS: Constitutional: No episodes of fever and night sweats. Neuro: Frequent HAs. HEENT: No recent change in voice, vision or hearing. Resp: CVS: No exertional chest pain, PND, orthopnea and LE edema. GI: No altered taste or symptoms of stomatitis. No dysphagia and odynophagia. No reflux, n/v, change in bowel habits or abdominal pain. : No dysuria or gross hematuria. No symptoms of bladder outlet obstruction. Endo: No hot flashes. No polyuria and polydipsia. No heat and cold intolerance. Musculoskeletal: No bone, back, joint and muscular pain. Derm: No current rash. No history of jaundice or diffuse pruritis. Heme: No unusual bleeding and unexplained bruising. Psych: Normal mood. PHYSICAL EXAM: Vitals: Blood pressure 103/58, pulse 94, temperature 36.5 C (97.7 F), temperature source Temporal, height 165 cm (5' 4.96), weight 117.3 kg (258 lb 8 oz), SpO2 92%. Well-appearing and in no acute distress. EYES: Sclerae are anicteric bilaterally. CARDIOVASCULAR: Rhythm is regular. ABDOMEN: The abdomen is nondistended. SKIN: No jaundice. ASSESSMENT/PLAN: (D69.59) Thrombocytopenia, secondary (primary encounter diagnosis) Assessment: - 61-year-old female with recent diagnosis of diabetes. Complicated past medical history. Reviewed electronic record through [facility]. I cannot find record of a bone marrow biopsy. Nonetheless, platelet count has fluctuated and had been mild. Only during the hospitalization at [facility] in 2023 when she underwent revision of back surgery did her platelets go to the 70-80,000 range. Otherwise she was recently diagnosed with iron deficiency and is currently receiving iron sucrose. Previously was on vitamin supplements but discontinued those a while ago. Most recent colonoscopy was in 2019. She was foundto have a pseudopolyp on biopsy showed chronic inflammation. - Discussed stepwise approach to workup. Outlined plan below. Plan: - CBC, B12, MMA, serum folate today. - CBC/iron studies followed by office visit about 2 weeks after she completes parenteral iron. I spent a total of 50 minutes on the date of the service which included preparing to see the patient, [id number] patient care, completing clinical documentation, obtaining and/or reviewing separately obtained history, counseling and educating the patient/family/caregiver, ordering medications, cherry ts, or procedures, communicating with other HCPs (not separately reported), and communicating results to the patient/family/caregiver. Jose Dennison DO [facility] Discharge summary [facility] Medical Records Department [address] [place] [address] Emergency Department Summary 08/09/24 MR#: [id number] Acct: [id number] Name: ALFIE HOGAN Rep #:[id number] : 1960 63 From: Airam ADEN PCP: Dr. Corin Mariscal MD Status:ADM IN O Location: TX3 OE322-8 HPI History of Present Illness Chief Complaint: Headache Narrative Narrative: 63-year-old female presents with a gradual onset bifrontal headache that startedyesterday. She has nausea but no vomiting. She states she has had intermittentheadaches for the last 1 to 2 years. Theystart gradually and sometimes have associated nausea and vomiting and light and sound sensitivity. S he has no diagnosis of migraines. She states she tried [id number] Tylenol and ibuprofen without much relief. She was prescribed [place] for headaches last month but states it does not help. She states she has been sick for 1 to 2 months and had COVID and has been dealing with ongoing sinus drainage and respiratory symptoms. She has been on 3 rounds of antibiotic and steroids and just finished them. She is on chronic 5 L of oxygen for pulmonary hypertensionand a paralyzed diaphragm. [facility] Medical History (Updated 08/09/24 @ 20:38 by MARKIE Dolan) Chronic pain CPAP (continuous positive airway pressure) dependence Contusion of left hip Contusion of rib on right side Contusion of left shoulder Contusion of scalp Closed fracture of fibula, proximal, left Pyuria Substance abuse Kidney disease Former smoker BiPAP (biphasic positive airway pressure) dependence Sleep apnea On home oxygen therapy Hypertension Dementia Alcohol withdrawal Alcohol abuse Admitted to alcohol detoxification center Medical marijuana use Frequent falls DVT (deep venous thrombosis) Right ventricular systolic dysfunction Right bundle branch block (RBBB) Essential (primary) hypertension Sepsis Abdominal pain Migraine Chronic renal insufficiency, stage I Pancytopenia Respiratory tract infection due to COVID-19 virus Endocarditis Gastritis Restrictive lung disease Colitis Osteoarthritis Chronic renal failure Depression GENNARO (obstructive sleep apnea) Pneumonia Bronchitis Asthma COPD (chronic obstructive pulmonary disease) Morbid obesity HLD (hyperlipidemia) Bronchiectasis Idiopathic right ventricular dilation Thrombocytopenia Leukopenia Abnormal liver CT Anemia Anxiety Respiratory insufficiency Respiratory failure with hypoxia Colitis with rectal bleeding History of umbilical hernia History of diarrhea Arthritis Gastroesophageal reflux disease Home Medications ?Medication ?Instructions ?Recorded ?Last Taken ?Type pantoprazole 40 mg tablet,delayed 40 mg PO DAILY ACID REFLUX 12/09/18 07/12/24 History release rosuvastatin 40 mg tablet 40 mg PO QHS CHOLESTEROL 07/12/24 History melatonin 10 mg tablet 10 mg PO QHS SLEEP 07/16/22 07/12/24 History carvedilol 3.125 mg tablet 3.125 mg PO BID HEART #60 tabs 07/20/22 07/12/24 Rx mometasone-formoterol HFA 100 2 puff inhalation BID SH ORTNESS OF 03/05/23 07/12/24 Rx mcg-5 mcg/actuation aerosol BREATH/WHEEZING #13 grams inhaler (Dulera) temazepam 30 mg capsule 30 mg PO QHS INSOMNIA 07/12/24 History alprazolam 0.5 mg tablet 0.5 mg PO BID anxiety 07/12/24 History fluoxetine 40 mg capsule 40 mg PO DAILY depression 07/12/24 History linaclotide 290 mcg capsule 290 mcg PO DAILY bowel fun ction 01/28/24 07/12/24 History (Linzess) trospium 20 mg tablet 20 mg PO BID see 01/28/24 07/12/24 History ergocalciferol (vitamin D2) 1,250 1,250 mcg PO QWEEK 0 07/15/24 Unknown History mcg (50,000 unit) capsule albuterol sulfate 90 mcg/actuation 1 puff inhalation Q 6H PRN 07/17/24 Unknown Rx aerosol inhaler shortness of breath or wheez ing #6.7 grams cyanocobalamin (vitamin B-12) 1,000 mcg PO DAILY 08/09 Unknown History 1,000 mcg tablet (Vitamin B-12) cyclobenzaprine 5 mg tablet 5 mg PO TID PRN PRN muscle spasm 08/09/24 Unknown History ferrous sulfate 325 mg (65 mg 325 mg PO QDAY 08/09/24 Unknown History iron) tablet (iron) fluconazole 100 mg tablet 100 mg PO QWEEK 08/09/24 Unk nown History magnesium 200 mg tablet 200 mg PO DAILY 08/09/24 Unk nown History sennosides 8.6 mg tablet (Aminata-guy) 8.6 mg PO BID PRN PRN constipation 08/09/24 Unknown History Allergy/AdvReac Type Severity Reaction Status Date / Time house dust Allergy ITCHY EYES Verified 08/09/24 17:18 Penicillins Allergy Hives Verified 08/09/24 17:18 Seasonal Allergies: Uncoded Allergy ITCHY EYES Verified 08/09/24 17:18 Opioids - Morphine Analogues AdvReac Intermediate Confusion Verified 08/09/24 17:18 (narcotics) Family History Father Colon cancer Mother Cancer pancreatic Surgical History History of tubal ligation History of appendectomy History of hysterectomy History of cholecystectomy Social History household members: none Smoking Status: Former smoker Tobacco: How many years used: 25 how long ago did patient quit smokin, 0.5ppd second hand exposure: Yes alcohol intake: never substance use type: does not use ROS ROS ED ROS Narrative Constitutional: Positive for fever, chills, malaise. Eyes: Negative for visual change. GI: Positive for nausea. No vomiting. Neuro: Positive for headache. EXAM Physical Exam Narrative Exam Narrative: CONST: Patient sitting in no acute distress. EYES: Normal inspection. PERRL, EOMI. ENT: Normal inspection, moist mucous membranes. NECK: Normal inspection. No meningismus. RESP: No respiratory distress, CTAB. CVS: Regular rate and rhythm, no murmur, no gallop. SKIN: Color normal, no rash, warm, dry, intact. EXTREMITIES: Normal appearance, no pedal edema. NEURO: Alert and answering questions appropriately. 5/5 upper and lower extremity strength, normal [id number] bilaterally. PSYCH: Normal affect. Const Vital Signs: 08/09/24 17:16 08/09/24 17:58 08/09/24 19:16 Temperature 98.2 F Temperature Source Temporal Pulse Rate 99 93 Respiratory Rate 18 24 H Blood Pressure 142/63 H Blood Pressure Mean 89 Pulse Ox 98 97 96 Oxygen Delivery Method Nasal Cannula Nasal Cannula Nasal Cannula Oxygen Flow Rate (L/min) 4 4.5 4.5 Physical Exam Const Vital Signs: 08/09/24 17:16 08/09/24 17:58 08/09/24 19:16 Temperature 98.2 F Temperature Source Temporal Pulse Rate 99 93 Respiratory Rate 18 24 H Blood Pressure 142/63 H Blood Pressure Mean 89 Pulse Ox 98 97 96 Oxygen Delivery Method Nasal Cannula Nasal Cannula Nasal Cannula Oxygen Flow Rate (L/min) 4 4.5 4.5 MDM MDM MDM Narrative Medical decision making narrative: Differential includes tension headache, migraine, she has no signs or symptoms of meningitis 63-year-old female reports a convoluted history. Initially does describe a gradual onset bifrontal headache with nausea. And reports she has been sick for3 weeks and was admitted for COVID in the past. She reports she is still havingfevers up to 102 ?F this morning. She appears awake alert in no distress. She is afebrile with normal vital signs. She wears 4 to 5 L of nasal cannula oxygenat baseline. She has no meningismus. She has a normal neurological exam. She had a negative CT brain scan on 07/13/2024 so since her exam here is benign I do not feel this needs repeated. She was initially givenIV cocktail of Toradol, Compazine, and Benadryl while blood work was obtained. WBC is 3.5, hemoglobin 9.0, platelets 149. It looks like she has had a history of pancytopenia and ongoing chronic anemia. Lactic is 1.2. CXR shows elevated right hemidiaphragm with bibasilar atelectasis and states a superimposed infection cannot be excluded; she is not febrile here and does not have a significant cough so I do not suspect pneumonia. UA negative for infection. CMP returned last with markedly elevatedglucose at 560. CO2 33.7 and anion gap is 12. Electrolytes are within normal limits. She denies history of diabetes. In July her glucose ran between 100?200s. She reports being on 3 rounds of antibiotics andsteroids and finished them recently so this likely precipitated her hyperglycemia. She was given IV fluids and 12 units of lispro. She has not hadimprovement in her headache and due to intractable migraine and significant new hyperglycemia without a way to arrange appropriate management follow-up on the weekend I think she requires admission. I discussed the case with the hospitalist. I have personally performed a face to face assessment of the patient and have reviewed the SILVIA Note. I performed a substantive portion of the visit including all aspects of the following. My nobles findings include: History is [patient presents with headache since yesterday. Describes bifrontal headache with some mild nausea. Denies significant photophobia. Patient states that she has been sick for about 3 weeksand it was admitted with COVID in the past. 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 She also tells me that she has had for the last 2 to 3 days frequent urination where she is urinating about every 5 minutes. She describes dysuria. Patient states that she has had feversat home up to 10 3 at night and 102 this morning. Apparently was seen in July for multiple complaints in the ER and had a CT scan of her brain that was unremarkable. She has not had any falls or head injuries.] Exam is [HEENT-PERRLA, EOMI. Cranial nerves II through XII grossly intact. TMs clear. Mucous membranes moist. No adenopathy. Cardiovascular-regular rate and rhythm without murmur or ectopy Lungs-clear to auscultation, chest wall stable without crepitus or subcu emphysema Abdomen-normoactive bowel sounds, soft, nontender, no rebound or rigidity, no peritoneal signs. Extremities-intact ?4, normal range of motion, normal pulses, atraumatic] Medical Decison Making [patient with headache and fever and dysuria. Will obtain basic labs. Will treat with IV fluids as well as Reglan, Benadryl, and Toradol. Will obtain urinalysis as well as blood cultures and urine cultures and lactate.] Other additions or changes: [None] Lab Data Attestation: I reviewed the patient's lab results. Labs: Laboratory Results - last 24 hr 08/09/24 08/09/24 18:15 18:34 WBC 3.5 L RBC 3.30 L Hgb 9.0 L Hct 30.3 L MCV 91.8 MCH 27.3 MCHC 29.7 L RDW Std Deviation 49.4 H RDW Coeff of Jaun 14.9 H Plt Count 149 L MPV 10.4 Immature Gran % (Auto) 0.600 Neut % (Auto) 64.4 Lymph % (Auto) 25.7 Woodward % (Auto) 7.9 Eos % (Auto) 1.1 Baso % (Auto) 0.3 Absolute Neuts (auto) 2.3 Absolute Lymphs (auto) 0.91 Nucleated RBC % 0 PT 12.3 INR 0.9 APTT 22.6 L Sodium 138 Potassium 4.3 Chloride 97 L Carbon Dioxide 33.7 H Anion Gap 7 BUN 12 Creatinine 0.91 Estim Creat Clear Calc 82.86 Est GFR (MDRD) Non-Af 71 BUN/Creatinine Ratio 13.3 Glucose 560 H* Lactic Acid 1.2 Calcium 9.5 Total Bilirubin 0.67 AST 10 ALT 12 Alkaline Phosphatase 88 Total Protein 5.7 L Albumin 3.9 Globulin 1.8 L Albumin/Globulin Ratio 2.1 Urine Color Yellow Urine Clarity Clear Urine pH 7.0 Ur Specific Lorton 1.010 Urine Protein 30 H Urine Glucose (UA) 1000 H Urine Ketones Negative Urine Occult Blood 10 H Urine Nitrite Negative Urine Bilirubin Negative Urine Urobilinogen Normal Ur Leukocyte Esterase Negative Urine RBC 0 SEEN Urine WBC 0 SEEN Ur Squamous Epith Cells 0 SEEN Urine Bacteria 0 SEEN Urine Mucus 0 SEEN Radiography Diagnostic Testing: Clinical Impression(s) from Imaging Studies Chest X-Ray 08/09/24 17:58 IMPRESSION: Elevated right hemidiaphragm with bibasilar platelike atelectasis. Superimposed infection can not be excluded. [facility] interpretation of 1 view chest x-ray shows elevated right hemidiaphragm, no large infiltrate. MDM MDM Narrative Medical decision making narrative: Differential includes tension headache, migraine, she has no signs or symptoms of meningitis 63-year-old female reports a convoluted history. Initially does describe a gradual onset bifrontal headache with nausea. And reports she has been sick for 3 weeks and was admitted for COVID in the past. She reports she is still having fevers up to 102 ?F this morning. She appears awake alert in no distress. She is afebrile with normal vital signs. She wears 4 to 5 L of nasal cannula oxygen at baseline. She has no meningismus. She has a normal neurological exam. She had a negative CT brain scan on 07/13/2024 so since her exam here is benign I do not feel this needs repeated. She was initially given IV cocktail of Toradol, Compazine, and Benadryl while blood work was obtained. WBC is 3.5, hemoglobin 9.0, platelets 149. It looks like she has had a history of pancytopenia and ongoing chronic anemia. Lactic is 1.2. CXR shows elevated right hemidiaphragm with bibasilar atelectasis and states a superimposed infection cannot be excluded; she is not febrile here and does not have a significant cough so I do not suspect pneumonia. UA negative for infection. CMP returned last with markedly elevated glucose at 560. CO2 33.7 and anion gap is 12. Electrolytes are within normal limits. She denies history of diabetes. In July her glucose ran between 100?200s. She reports being on 3 rounds ofantibiotics and steroids and finished them recently so this likely precipitated her hyperglycemia.She was given IV fluids and 12 units of lispro. She has not had improvement in her headache and dueto intractable migraine and significant new hyperglycemia without a way to arrange appropriate management follow-up on the weekend I think she requires admission. I discussed the case with the hospitalist. I have personally performed a face to face assessment of the patient and have reviewed the SILVIA Note. I performed a substantive portion of the visit including all aspects of the following. My nobles findings include: History is [patient presents with headache since yesterday. Describes bifrontal headache with some mild nausea. Denies significant photophobia. Patient states that she has been sick for about 3 weeksand it was admitted with COVID in the past. 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 She also tells me that she has had for the last 2 to 3 days frequent urination where she is urinating about every 5 minutes. She describes dysuria. Patient states that she has had feversat home up to 10 3 at night and 102 this morning. Apparently was seen in July for multiple complaints in the ER and had a CT scan of her brain that was unremarkable. She has not had any falls or head injuries.] Exam is [HEENT-PERRLA, EOMI. Cranial nerves II through XII grossly intact. TMs clear. Mucous membranes moist. No adenopathy. Cardiovascular-regular rate and rhythm without murmur or ectopy Lungs-clear to auscultation, chest wall stable without crepitus or subcu emphysema Abdomen-normoactive bowel sounds, soft, nontender, no rebound or rigidity, no peritoneal signs. Extremities-intact ?4, normal range of motion, normal pulses, atraumatic] Medical Decison Making [patient with headache and fever and dysuria. Will obtain basic labs. Will treat with IV fluids as well as Reglan, Benadryl, and Toradol. Will obtain urinalysis as well as blood cultures and urine cultures and lactate.] CBC with differential obtained showed a white count of 3.5 with hemoglobin 9.0 and platelet count of 149. Chemistries unremarkable. Glucose elevated 560. Urinalysis unremarkable. Etiology of patient's fever unclear. Patient was given 12 units of insulin subcu for the elevated glucose and she does not have a history of diabetes. She continues to complain of headache. I do not think she needs any further imaging as she recently had a CT scan of her brainthat was unremarkable less than a month ago. Chest x-ray obtained did notshow any definitive infiltrate or pneumonia. Blood cultures ordered and pending. Case discussed with hospitalist to evaluate patient for admission for management of blood sugar and for intractable headache. Other additions or changes: [None] Lab Data Labs: Laboratory Results - last 24 hr 08/09/24 08/09/24 18:15 18:34 WBC 3.5 L RBC 3.30 L Hgb 9.0 L Hct 30.3 L MCV 91.8 MCH 27.3 MCHC 29.7 L RDW Std Deviation 49.4 H RDW Coeff of Jaun 14.9 H Plt Count 149 L MPV 10.4 Immature Gran % (Auto) 0.600 Neut % (Auto) 64.4 Lymph % (Auto) 25.7 Woodward % (Auto) 7.9 Eos % (Auto) 1.1 Baso % (Auto) 0.3 Absolute Neuts (auto) 2.3 Absolute Lymphs (auto) 0.91 Nucleated RBC % 0 PT 12.3 INR 0.9 APTT 22.6 L Sodium 138 Potassium 4.3 Chloride 97 L Carbon Dioxide 33.7 H Anion Gap 7 BUN 12 Creatinine 0.91 Estim Creat Clear Calc 82.86 Est GFR (MDRD) Non-Af 71 BUN/Creatinine Ratio 13.3 Glucose 560 H* Lactic Acid 1.2 Calcium 9.5 Total Bilirubin 0.67 AST 10 ALT 12 Alkaline Phosphatase 88 Total Protein 5.7 L Albumin 3.9 Globulin 1.8 L Albumin/Globulin Ratio 2.1 Urine Color Yellow Urine Clarity Clear Urine pH 7.0 Ur Specific Lorton 1.010 Urine Protein 30 H Urine Glucose (UA) 1000 H Urine Ketones Negative Urine Occult Blood 10 H Urine Nitrite Negative Urine Bilirubin Negative Urine Urobilinogen Normal Ur Leukocyte Esterase Negative Urine RBC 0 SEEN Urine WBC 0 SEEN Ur Squamous Epith Cells 0 SEEN Urine Bacteria 0 SEEN Urine Mucus 0 SEEN Radiography Diagnostic Testing: Clinical Impression(s) from Imaging Studies Chest X-Ray 08/09/24 17:58 IMPRESSION: Elevated right hemidiaphragm with bibasilar platelike atelectasis. Superimposed infection can not be excluded. Reading [facility] Triage Chief Complaint: Headache ED Midlevel Provider: Airam Rocha ED Provider: Torey Mercedes Dx/Rx/DC Orders Clinical Impression: Headache, Acute hyperglycemia, Pancytopenia Primary Care Provider: Corin Mariscal What to do if you have Problems For any increased pain, shortness of breath, bleeding, nausea or vomiting, chest pain, or any unexpected problems, contact your Primary Care Provider. Call [facility] ([phone]) or report to the closest Emergency Room. Call 911 if necessary. 08/09/242037 Cosigner Signature (if applicable): 08/09/242056 CC: Dr. Corin Mariscal MD ~ Signed [facility]03-08-2025 Radiology Diagnostic study note [facility] Imaging Services [address] [place] [address] Chest PA and Lateral MR#: [id number] Acct: [id number] Name: ALFIE HOGAN Rep #: [id number] : 1960 F 63 From: Genny Andre DO PCP: Dr. Corin Mariscal MD Status: REG ER Study:Chest PA and Lateral Date of Exam: 08/09/24 Exam# [id number] Ordering Dr: Airam Duran PROCEDURE: CHEST PA AND LATERAL REASON FOR EXAM: Fever TECHNIQUE: Frontal and lateral views of the chest. COMPARISON: Chest radiograph dated 07/15/2024 FINDINGS: Heart size is mildly enlarged. The mediastinal contour is unremarkable. Elevated right hemidiaphragm with bibasilar platelike atelectasis. Lumbar spine fixation hardware. RAD/Chest PA and Lateral IMPRESSION: Elevated right hemidiaphragm with bibasilar platelike atelectasis. Superimposedinfection can not beexcluded. Reading Location: [facility] CC: Dr. Corin Mariscal MD; MARKIE Dolan ~ Plate Driller: Signed [facility]03-08-2025 Discharge summary Author Airam Rocha [facility] Note Date/Time August 09, 2024 8:57 pm [facility] Medical Records Department [address] [place] [address] Emergency Department Summary 08/09/24 MR#: [id number] Acct: [id number] Name: ALFIE HOGAN Rep #:[id number] : 1960 63 From: Airam ADEN PCP: Dr. Corin Mariscal MD Status:ADM IN O Location: MS3 SO255-6 HPI <MARKIE Dolan - Last Filed: 08/09/24 20:38> History of Present Illness Chief Complaint: Headache Narrative Narrative: 63-year-old female presents with a gradual onset bifrontal headache that startedyesterday. She has nausea but no vomiting. She states she has had intermittentheadaches for the last 1 to 2 years. They start gradually and sometimes have associated nausea and vomiting and light and sound sensitivity. She has no diagnosis of migraines. She states she tried dams-pef-vhqexja Tylenol and ibuprofen without much relief. She was prescribed [place] for headaches last month but states it does not help. She states she has been sick for 1 to 2 months and had COVID and has been dealing with ongoing sinus drainage and respiratory symptoms. She has been on 3 rounds of antibiotic and steroids and just finished them. She is on chronic 5 L of oxygen for pulmonary hypertensionand a paralyzed diaphragm. [facility] <MARKIE Dolan - Last Filed: 08/09/24 20:38> [facility] Medical History (Updated 08/09/24 @ 20:38 by MARKIE Dolan) Chronic pain CPAP (continuous positive airway pressure) dependence Contusion of left hip Contusion of rib on right side Contusion of left shoulder Contusion of scalp Closed fracture of fibula, proximal, left Pyuria Substance abuse Kidney disease Former smoker BiPAP (biphasic positive airway pressure) dependence Sleep apnea On home oxygen therapy Hypertension Dementia Alcohol withdrawal Alcohol abuse Admitted to alcohol detoxification center Medical marijuana use Frequent falls DVT (deep venous thrombosis) Right ventricular systolic dysfunction Right bundle branch block (RBBB) Essential (primary) hypertension Sepsis Abdominal pain Migraine Chronic renal insufficiency, stage I Pancytopenia Respiratory tract infection due to COVID-19 virus Endocarditis Gastritis Restrictive lung disease Colitis Osteoarthritis Chronic renal failure Depression GENNARO (obstructive sleep apnea) Pneumonia Bronchitis Asthma COPD (chronic obstructive pulmonary disease) Morbid obesity HLD (hyperlipidemia) Bronchiectasis Idiopathic right ventricular dilation Thrombocytopenia Leukopenia Abnormal liver CT Anemia Anxiety Respiratory insufficiency Respiratory failure with hypoxia Colitis with rectal bleeding History of umbilical hernia History of diarrhea Arthritis Gastroesophageal reflux disease Home Medications ?Medication ?Instructions ?Recorded ?Last Taken ?Type pantoprazole 40 mg tablet,delayed 40 mg PO DAILY ACID REFLUX 12/09/18 07/12/24 History release rosuvastatin 40 mg tablet 40 mg PO QHS CHOLESTEROL 07/12/24 History melatonin 10 mg tablet 10 mg PO QHS SLEEP 07/16/22 07/12/24 History carvedilol 3.125 mg tablet 3.125 mg PO BID HEART #60 tabs 07/20/22 07/12/24 Rx mometasone-formoterol HFA 100 2 puff inhalation BID SH ORTNESS OF 03/05/23 07/12/24 Rx mcg-5 mcg/actuation aerosol BREATH/WHEEZING #13 grams inhaler (Dulera) temazepam 30 mg capsule 30 mg PO QHS INSOMNIA 07/12/24 History alprazolam 0.5 mg tablet 0.5 mg PO BID anxiety 07/12/24 History fluoxetine 40 mg capsule 40 mg PO DAILY depression 07/12/24 History linaclotide 290 mcg capsule 290 mcg PO DAILY bowel fun ction 01/28/24 07/12/24 History (Linzess) trospium 20 mg tablet 20 mg PO BID see 01/28/24 07/12/24 History ergocalciferol (vitamin D2) 1,250 1,250 mcg PO QWEEK 0 07/15/24 Unknown History mcg (50,000 unit) capsule albuterol sulfate 90 mcg/actuation 1 puff inhalation Q 6H PRN 07/17/24 Unknown Rx aerosol inhaler shortness of breath or wheez ing #6.7 grams cyanocobalamin (vitamin B-12) 1,000 mcg PO DAILY 08/09 Unknown History 1,000 mcg tablet (Vitamin B-12) cyclobenzaprine 5 mg tablet 5 mg PO TID PRN PRN muscle spasm 08/09/24 Unknown History ferrous sulfate 325 mg (65 mg 325 mg PO QDAY 08/09/24 Unknown History iron) tablet (iron) fluconazole 100 mg tablet 100 mg PO QWEEK 08/09/24 Unk nown History magnesium 200 mg tablet 200 mg PO DAILY 08/09/24 Unk nown History sennosides 8.6 mg tablet (Aminata-guy) 8.6 mg PO BID PRN PRN constipation 08/09/24 Unknown History Allergy/AdvReac Type Severity Reaction Status Date / Time house dust Allergy ITCHY EYES Verified 08/09/24 17:18 Penicillins Allergy Hives Verified 08/09/24 17:18 Seasonal Allergies: Uncoded Allergy ITCHY EYES Verified 08/09/24 17:18 Opioids - Morphine Analogues AdvReac Intermediate Confusion Verified 08/09/24 17:18 (narcotics) Family History Father Colon cancer Mother Cancer pancreatic Surgical History History of tubal ligation History of appendectomy History of hysterectomy History of cholecystectomy Social History household members: none Smoking Status: Former smoker Tobacco: How many years used: 25 how long ago did patient quit smokin, 0.5ppd second hand exposure: Yes alcohol intake: never substance use type: does not use ROS <MARKIE Dolan - Last Filed: 08/09/24 20:38> ROS ED ROS Narrative Constitutional: Positive for fever, chills, malaise. Eyes: Negative for visual change. GI: Positive for nausea. No vomiting. Neuro: Positive for headache. EXAM <MARKIE Dolan - Last Filed: 08/09/24 20:38> Physical Exam Narrative Exam Narrative: CONST: Patient sitting in no acute distress. EYES: Normal inspection. PERRL, EOMI. ENT: Normal inspection, moist mucous membranes. NECK: Normal inspection. No meningismus. RESP: No respiratory distress, CTAB. CVS: Regular rate and rhythm, no murmur, no gallop. SKIN: Color normal, no rash, warm, dry, intact. EXTREMITIES: Normal appearance, no pedal edema. NEURO: Alert and answering questions appropriately. 5/5 upper and lower extremity strength, normal cbyiej-jf-htbr bilaterally. PSYCH: Normal affect. Const Vital Signs: 08/09/24 17:16 08/09/24 17:58 08/09/24 19:16 Temperature 98.2 F Temperature Source Temporal Pulse Rate 99 93 Respiratory Rate 18 24 H Blood Pressure 142/63 H Blood Pressure Mean 89 Pulse Ox 98 97 96 Oxygen Delivery Method Nasal Cannula Nasal Cannula Nasal Cannula Oxygen Flow Rate (L/min) 4 4.5 4.5 <Dr. Torey Mercedes DO - Last Filed: 08/09/24 20:48> Physical Exam Const Vital Signs: 08/09/24 17:16 08/09/24 17:58 08/09/24 19:16 Temperature 98.2 F Temperature Source Temporal Pulse Rate 99 93 Respiratory Rate 18 24 H Blood Pressure 142/63 H Blood Pressure Mean 89 Pulse Ox 98 97 96 Oxygen Delivery Method Nasal Cannula Nasal Cannula Nasal Cannula Oxygen Flow Rate (L/min) 4 4.5 4.5 [facility] <MARKIE Dolan - Last Filed: 08/09/24 20:38> [facility] Narrative Medical decision making narrative: Differential includes tension headache, migraine, she has no signs or symptoms of meningitis 63-year-old female reports a convoluted history. Initially does describe a gradual onset bifrontal headache with nausea. And reports she has been sick for3 weeks and was admitted for COVID in the past. She reports she is still havingfevers up to 102 ?F this morning. She appears awake alert in no distress. She is afebrile with normal vital signs. She wears 4 to 5 L of nasal cannula oxygenat baseline. She has no meningismus. She has a normal neurological exam. She had a negative CT brain scan on 07/13/2024 so since her exam here is benign I do not feel this needs repeated. She was initially given IV cocktail of Toradol, Compazine, and Benadryl while blood work was obtained. WBC is 3.5, hemoglobin 9.0, platelets 149. It looks like she has had a history of pancytopenia and ongoing chronic anemia. Lactic is 1.2. CXR shows elevated right hemidiaphragm with bibasilar atelectasis and states a superimposed infection cannot be excluded; she is not febrile here and does not have a significant cough so I do not suspect pneumonia. UA negative for infection. CMP returned last with markedly elevated glucose at 560. CO2 33.7 and anion gap is 12. Electrolytes are within normal limits. She denies history of diabetes. In July her glucose ran between 100?200s. She reports being on 3 rounds of antibiotics andsteroids and finished them recently so this likely precipitated her hyperglycemia. She was given IV fluids and 12 units of lispro. She has not hadimprovement in her headache and due to intractable migraine and significant new hyperglycemia without a way to arrange appropriate management follow-up on the weekend I think she requires admission. I discussed the case with the hospitalist. I have personally performed a face to face assessment of the patient and have reviewed the SILVIA Note. I performed a substantive portion of the visit including all aspects of the following. My nobles findings include: History is [patient presents with headache since yesterday. Describes bifrontal headache with some mild nausea. Denies significant photophobia. Patient states that she has been sick for about 3 weeks and it was admitted with COVID in the past. 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 She also tells me that she has had for the last 2 to 3 days frequent urination where she is urinating about every 5 minutes. She describes dysuria. Patient states that she has had fevers at home up to 10 3 at night and 102 this morning. Apparently was seen in July for multiple complaints in the ER and had a CT scan of her brain that was unremarkable. She has not had any falls or head injuries.] Exam is [HEENT-PERRLA, EOMI. Cranial nerves II through XII grossly intact. TMs clear. Mucous membranes moist. No adenopathy. Cardiovascular-regular rate and rhythm without murmur or ectopy Lungs-clear to auscultation, chest wall stable without crepitus or subcu emphysema Abdomen-normoactive bowel sounds, soft, nontender, no rebound or rigidity, no peritoneal signs. Extremities-intact ?4, normal range of motion, normal pulses, atraumatic] Medical Decison Making [patient with headache and fever and dysuria. Will obtain basic labs. Will treat with IV fluids as well as Reglan, Benadryl, and Toradol. Will obtain urinalysis as well as blood cultures and urine cultures and lactate.] Other additions or changes: [None] Lab Data Attestation: I reviewed the patient's lab results. Labs: Laboratory Results - last 24 hr 08/09/24 08/09/24 18:15 18:34 WBC 3.5 L RBC 3.30 L Hgb 9.0 L Hct 30.3 L MCV 91.8 MCH 27.3 MCHC 29.7 L RDW Std Deviation 49.4 H RDW Coeff of Jaun 14.9 H Plt Count 149 L MPV 10.4 Immature Gran % (Auto) 0.600 Neut % (Auto) 64.4 Lymph % (Auto) 25.7 Woodward % (Auto) 7.9 Eos % (Auto) 1.1 Baso % (Auto) 0.3 Absolute Neuts (auto) 2.3 Absolute Lymphs (auto) 0.91 Nucleated RBC % 0 PT 12.3 INR 0.9 APTT 22.6 L Sodium 138 Potassium 4.3 Chloride 97 L Carbon Dioxide 33.7 H Anion Gap 7 BUN 12 Creatinine 0.91 Estim Creat Clear Calc 82.86 Est GFR (MDRD) Non-Af 71 BUN/Creatinine Ratio 13.3 Glucose 560 H* Lactic Acid 1.2 Calcium 9.5 Total Bilirubin 0.67 AST 10 ALT 12 Alkaline Phosphatase 88 Total Protein 5.7 L Albumin 3.9 Globulin 1.8 L Albumin/Globulin Ratio 2.1 Urine Color Yellow Urine Clarity Clear Urine pH 7.0 Ur Specific Lorton 1.010 Urine Protein 30 H Urine Glucose (UA) 1000 H Urine Ketones Negative Urine Occult Blood 10 H Urine Nitrite Negative Urine Bilirubin Negative Urine Urobilinogen Normal Ur Leukocyte Esterase Negative Urine RBC 0 SEEN Urine WBC 0 SEEN Ur Squamous Epith Cells 0 SEEN Urine Bacteria 0 SEEN Urine Mucus 0 SEEN Radiography Diagnostic Testing: Clinical Impression(s) from Imaging Studies Chest X-Ray 08/09/24 17:58 IMPRESSION: Elevated right hemidiaphragm with bibasilar platelike atelectasis. Superimposed infection can not be excluded. Reading Location: [facility] ED attending interpretation of 1 view chest x-ray shows elevated right hemidiaphragm, no large infiltrate. <Dr. Torey Mercedes, DO - Last Filed: 08/09/24 20:48> [facility] Narrative Medical decision making narrative: Differential includes tension headache, migraine, she has no signs or symptoms of meningitis 63-year-old female reports a convoluted history. Initially does describe a gradual onset bifrontal headache with nausea. And reports she has been sick for 3 weeks and was admitted for COVID in the past. She reports she is still having fevers up to 102 ?F this morning. She appears awake alert in no distress. She is afebrile with normal vital signs. She wears 4 to 5 L of nasal cannula oxygen at baseline. She has no meningismus. She has a normal neurological exam. She had a negative CT brain scan on 07/13/2024 so since her exam here is benign I do not feel this needs repeated. She was initially given IV cocktail of Toradol, Compazine, and Benadryl while blood work was obtained. WBC is 3.5, hemoglobin 9.0, platelets 149. It looks like she has had a history of pancytopenia and ongoing chronic anemia. Lactic is 1.2. CXR shows elevated right hemidiaphragm with bibasilar atelectasis and states a superimposed infection cannot be excluded; she is not febrile here and does not have a significant cough so I do not suspect pneumonia. UA negative for infection. CMP returned last with markedly elevated glucose at 560. CO2 33.7 and anion gap is 12. Electrolytes are within normal limits. She denies history of diabetes. In July her glucose ran between 100?200s. She reports being on 3 rounds of antibiotics and steroids and finished them recently so this likely precipitated her hyperglycemia. She was given IV fluids and 12 units of lispro. She has not had improvement in her headache and due to intractable migraine and significant new hyperglycemia without a way to arrange appropriate management follow-up on the weekend I think she requires admission. I discussed the case with the hospitalist. I have personally performed a face to face assessment of the patient and have reviewed the SILVIA Note. I performed a substantive portion of the visit including all aspects of the following. My nobles findings include: History is [patient presents with headache since yesterday. Describes bifrontal headache with some mild nausea. Denies significant photophobia. Patient states that she has been sick for about 3 weeks and it was admitted with COVID in the past. 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 She also tells me that she has had for the last 2 to 3 days frequent urination where she is urinating about every 5 minutes. She describes dysuria. Patient states that she has had fevers at home up to 10 3 at night and 102 this morning. Apparently was seen in July for multiple complaints in the ER and had a CT scan of her brain that was unremarkable. She has not had any falls or head injuries.] Exam is [HEENT-PERRLA, EOMI. Cranial nerves II through XII grossly intact. TMs clear. Mucous membranes moist. No adenopathy. Cardiovascular-regular rate and rhythm without murmur or ectopy Lungs-clear to auscultation, chest wall stable without crepitus or subcu emphysema Abdomen-normoactive bowel sounds, soft, nontender, no rebound or rigidity, no peritoneal signs. Extremities-intact ?4, normal range of motion, normal pulses, atraumatic] Medical Decison Making [patient with headache and fever and dysuria. Will obtain basic labs. Will treat with IV fluids as well as Reglan, Benadryl, and Toradol. Will obtain urinalysis as well as blood cultures and urine cultures and lactate.] CBC with differential obtained showed a white count of 3.5 with hemoglobin 9.0 and platelet count of 149. Chemistries unremarkable. Glucose elevated 560. Urinalysis unremarkable. Etiology of patient's fever unclear. Patient was given 12 units of insulin subcu for the elevated glucose and she does not have a history of diabetes. She continues to complain of headache. I do not think she needs any further imaging as she recently had a CT scan of her brain that was unremarkable less than a month ago. Chest x-ray obtained did notshow any definitive infiltrate or pneumonia. Blood cultures ordered and pending. Case discussed with hospitalist to evaluate patient for admission for management of blood sugar and for intractable headache. Other additions or changes: [None] Lab Data Labs: Laboratory Results - last 24 hr 08/09/24 08/09/24 18:15 18:34 WBC 3.5 L RBC 3.30 L Hgb 9.0 L Hct 30.3 L MCV 91.8 MCH 27.3 MCHC 29.7 L RDW Std Deviation 49.4 H RDW Coeff of Jaun 14.9 H Plt Count 149 L MPV 10.4 Immature Gran % (Auto) 0.600 Neut % (Auto) 64.4 Lymph % (Auto) 25.7 Woodward % (Auto) 7.9 Eos % (Auto) 1.1 Baso % (Auto) 0.3 Absolute Neuts (auto) 2.3 Absolute Lymphs (auto) 0.91 Nucleated RBC % 0 PT 12.3 INR 0.9 APTT 22.6 L Sodium 138 Potassium 4.3 Chloride 97 L Carbon Dioxide 33.7 H Anion Gap 7 BUN 12 Creatinine 0.91 Estim Creat Clear Calc 82.86 Est GFR (MDRD) Non-Af 71 BUN/Creatinine Ratio 13.3 Glucose 560 H* Lactic Acid 1.2 Calcium 9.5 Total Bilirubin 0.67 AST 10 ALT 12 Alkaline Phosphatase 88 Total Protein 5.7 L Albumin 3.9 Globulin 1.8 L Albumin/Globulin Ratio 2.1 Urine Color Yellow Urine Clarity Clear Urine pH 7.0 Ur Specific Lorton 1.010 Urine Protein 30 H Urine Glucose (UA) 1000 H Urine Ketones Negative Urine Occult Blood 10 H Urine Nitrite Negative Urine Bilirubin Negative Urine Urobilinogen Normal Ur Leukocyte Esterase Negative Urine RBC 0 SEEN Urine WBC 0 SEEN Ur Squamous Epith Cells 0 SEEN Urine Bacteria 0 SEEN Urine Mucus 0 SEEN Radiography Diagnostic Testing: Clinical Impression(s) from Imaging Studies Chest X-Ray 08/09/24 17:58 IMPRESSION: Elevated right hemidiaphragm with bibasilar platelike atelectasis. Superimposed infection can not be excluded. Reading Location: [facility] Discharge Plan Triage Chief Complaint: Headache ED Midlevel Provider: Airam Rocha ED Provider: Torey Mercedes Dx/Rx/DC Orders Clinical Impression: Headache, Acute hyperglycemia, Pancytopenia Primary Care Provider: Corin Mariscal What to do if you have Problems For any increased pain, shortness of breath, bleeding, nausea or vomiting, chest pain, or any unexpected problems, contact your Primary Care Provider. Call [facility] ([phone]) or report to the closest Emergency Room. Call 911 if necessary. 08/09/242037 <Electronically signed by Airam Rocha PA> Cosigner Signature (if applicable): 08/09/242056 <Electronically signed by Torey Mercedes DO> CC: Dr. Corin Mariscal MD ~ Signed [facility] Work Phone: 1(561) 417-510202-13-2025 [facility]02-11-2025 Evaluation note* Diagnosis Onset Date Resolution Status Admit Date Asthma exacerbation acute Febru ethel 2024 9:42pm BMI 40.0-44.9, adult acute Febr uary 2024 9:42pm COVID-19 long hauler acute Febr uary 2024 9:42pm Obesity hypoventilation syndrome acu te July 15, 2024 9:42pm GENNARO treated with BiPAP acute Fe bruary 2024 9:42pm Respiratory insufficiency acute July 15, 2024 9:42pm Acute hyperglycemia acute August 09, 2024 8:32pm Headache acute August 09 8:32pm [facility] Work Phone: 1(289) 530-430202-11-2025 Evaluation note* Diagnosis Onset Date Resolution Status Admit Date Asthma exacerbation acute Febru 2024 9:42pm BMI 40.0-44.9, adult acute Febr uary 2024 9:42pm COVID-19 long hauler acute Febr uary 2024 9:42pm Obesity hypoventilation syndrome acute July 15, 025 9:42pm GENNARO treated with BiPAP acute Fe bruary 2024 9:42pm Respiratory insufficiency acute July 15, 2024 9:42pm Acute hyperglycemia acute August 11, 2024 4:52pm Headache resolved August 11 4:52pm [facility] Work Phone: 1(206) 154-624702-11-2025 Evaluation note* Diagnosis Onset Date Resolution Status Admit Date Asthma exacerbation acute Febru 2024 9:42pm BMI 40.0-44.9, adult acute Febr uary 2024 9:42pm COVID-19 long hauler acute Febr uary 2024 9:42pm Obesity hypoventilation syndrome acute July 15, 2 025 9:42pm GENNARO treated with BiPAP acute Fe bruary 2024 9:42pm Respiratory insufficiency acute July 15, 2024 9:42pm Acute hyperglycemia acute August 11, 2024 4:52pm Headache resolved August 11 4:52pm PEDRO (acute kidney injury) acute November 07, 2024 4:45pm Chronic prescription benzodiazepine use acute November 07 4:45pm Debility acute November 07, 2024 4:45pm Elevated troponin acute November 4:45pm Generalized weakness acute November 07, 2024 4:45pm Hypokalemia acute November 07 4:45pm [facility] Work Phone: 1(611) 474-449402-11-2025 Evaluation note* Diagnosis Onset Date Resolution Status Admit Date Asthma exacerbation acute Febru ethel 2024 9:42pm BMI 40.0-44.9, adult acute 2024 9:42pm COVID-19 long hauler acute 2024 9:42pm Obesity hypoventilation syndrome acute July 15, 025 9:42pm GENNARO treated with BiPAP acute Fe bruary 2024 9:42pm Respiratory insufficiency acute July 15, 2024 9:42pm Acute hyperglycemia acute August 11, 2024 4:52pm Headache resolved August 11 4:52pm PEDRO (acute kidney injury) acute November 07, 2024 4:45pm Chronic prescription benzodiazepine use acute November 07 4:45pm Debility acute November 07, 2024 4:45pm Elevated troponin acute November 4:45pm Encephalopathy acute November 07, 2024 4:45pm Generalized weakness acute November 07, 2024 4:45pm Hypokalemia acute November 07 4:45pm [facility] Work Phone: 1(299) 456-890201-17-2025 Telephone encounter Note* Telephone Encounter - Willow Baez RN - 06/20/2024 5:46 PM EST Reason for Call: Covid positive Patient home tested positive for Covid. Yesterday she developed a headache and called her PCP who order prednisone which she started today. Her headache pain is 9/10 on scale with neck pain and difficulty moving chin to chest. She is also on 3 L of oxygen and last night her pulse ox was 88 % so shebumped up her oxygen to 5L and her current pulse ox is 95 %. Outcome: Advised to go to ED now. She will first call her local provider to further recommendations. Understands recommendation. Reason for Disposition [1] Headache AND [2] stiff neck (can't touch chin to chest) Protocols used: COVID-19 - Diagnosed or [id number] [facility]01-17-2025 Miscellaneous Notes* Telephone Encounter - Willow Baez RN - 06/20/2024 5:46 PM EST Reason for Call: Covid positive Patient home tested positive for Covid. Yesterday she developed a headache and called her PCP who order prednisone which she started today. Her headache pain is 9/10 on scale with neck pain and difficulty moving chin to chest. She is also on 3 L of oxygen and last night her pulse ox was 88 % so shebumped up her oxygen to 5L and her current pulse ox is 95 %. Outcome: Advised to go to ED now. She will first call her local provider to further recommendations. Understands recommendation. Reason for Disposition [1] Headache AND [2] stiff neck (can't touch chin to chest) Protocols used: COVID-19 - Diagnosed or [id number] [facility] Telephone encounter Note * Telephone Encounter - SUZY Barrera CNP - 10/19/2023 11:28 AM EDT Noted. Thank you. [id number] Miscellaneous Notes* Telephone Encounter - SUZY Barrera CNP - 10/19/2023 11:28 AM EDT Noted. Thank you. * Telephone Encounter - Debbie Andrews MA - 10/19/2023 10:36 AM EDT She does not see our office anymore, found a new PCP. Called her and notified her to update Gregory. * Telephone Encounter - SUZY Barrera CNP - 10/18/2023 5:26 PM EDT Rx sent with no refills. Due for physical and fasting blood work. Please schedule. * Telephone Encounter - Li Quiñones MA - 10/18/2023 3:08 PM EDT Prescription Request: Last medication check: 02/15/23 Last physical exam: 06/07/22 Next scheduled appointment: none Last date of refill on this medication 06/05/23 documented in this encounterSThe Metro[facility] [id number] Telephone encounter Note* Telephone Encounter - Debbie Andrews MA - 10/19/2023 10:36 AM EDT She does not see our office anymore, found a new PCP. Called her and notified her to update Gregory. [facility] [id number] Telephone encounter Note* Telephone Encounter - SUZY Barrera CNP - 10/18/2023 5:26 PM EDT Rx sent with no refills. Due for physical and fasting blood work. Please schedule. [facility] [id number] Telephone encounter Note* Telephone Encounter - Li Quiñones MA - 10/18/2023 3:08 PM EDT Prescription Request: Last medication check: 02/15/23 Last physical exam: 06/07/22 Next scheduled appointment: none Last date of refill on this medication 06/05/23 [facility] [id number] Telephone encounter Note* Telephone Encounter - Lou Major - 08/20/2023 7:38 AM EDT BRANDON BEAN MD did surgery will follow up with him. [facility] [id number] Miscellaneous Notes* Telephone Encounter - Lou Major - 08/20/2023 7:38 AM EDT BRANDON BEAN MD did surgery will follow up with him. * Telephone Encounter - Torrie Urbina - 08/18/2023 9:11 PM EDT Name of caller requesting page: [place] Phone number of caller: [phone] Facility requesting page: [facility] Reason for page: N/A Provider paged: Dr. Snachez Practice name of paged provider[place] [facility] [place] - [facility] Medicine Page placed to #: N/A Time page was sent or provider contacted: 9:12PM Method of contact: Secure Chat Page content: Please call Asia she is calling on behalf of Dr. Jackson Gordillo for patient Cheo 1960. Please call [place] at [phone]. documented in this encounterSThe MetroHealth [id number] Telephone encounter Note* Telephone Encounter - Torrie Urbina - 08/18/2023 9:11 PM EDT Name of caller requesting page: [place] Phone number of caller: [phone] Facility requesting page: [facility] Reason for page: N/A Provider paged: Dr. Sanchez Practice name of paged provider: [facility] [place] Phys[facility] Orthopedics - Sports Medicine Page placed to #: N/A Time page was sent or provider contacted: 9:12PM Method of contact: Secure Chat Page content: Please call [place] she is calling on behalf of Dr. Jackson Gordillo for patient Cheo 1960. Please call [place] at [phone]. [facility] [id number] Hospital Discharge instructions Additional Instructions Call Dr. Bean's office first thing Sunday morning. You may speak with his physician guest services assistant regarding pain control. Increase your Percocet to 1 to 2 tablets every 4-6 hours as needed pain.[facility] Work Phone: [phone]) 965-348703-11-2024 History of Present illness Narrative* Talya Nino RN - 08/13/2023 10:23 PM EDT Transport here to get pt. Report given to medic. All belongings in room sent with pt including CPAP. No further questions at this time. * Talya Nino RN - 08/13/2023 9:39 PM EDT Report called to [place]. SIMON Bolton took report with no further questions at this time. 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 * Samantha Oliver MD - 08/13/2023 2:29 PM EDT Orthopaedic Spine Progress Note Name: Alfie Hogan Date of : 1960 Age: 62 y.o. Admission Date/Time: 08/09/2023 7:14 AM Assessment: Alfie Hogan is a 62 y.o. female s/p T11-L3 PSF, L2 lami, JEAN L3-L5 08/08 Plan: -Operative plans: No further plans for surgery this admission -Weight bearing as tolerated -Range of motion parameters: ROM as tolerated -Consults: Internal medicine consult for medical management -Antibiotics: home PO duricef for 10 days -Dressings: Keep bandage clean dry and intact for 7-10 days post operatively, then ok to leave opento air if incision is without drainage. -Diet: no restrictions from ortho standpoint -Labs: CBC & BMP x 2 days post op -hgb stable 7.8 this morning -PT/OT -PT recommended outpatient/post discharge?: Yes, for basic ADLs -Medical management, dvt ppx and pain control per primary -DVT ppx recommended?: SCDs and ambulation -Follow-up with Dr Bean in 2 weeks -Ortho primary team. -Dispo: SNF p Subjective: Doing better today. Discussed waiting for rehab. Sitting up on the side of bed. Spoke to patient about updating Dr. Bean and she will see him outpatient. Denies fever, chills, and SOB and states she feels a little better each day Objective Most Recent Vitals: Vitals: 08/12/23 0815 08/12/23 1922 08/12/23 2232 08/13/23 0829 BP: 121/77 130/84 105/73 BP Location: Right arm Right arm Right arm Patient Position: Lying Lying Pulse: 104 112 108 116 Resp: 16 16 14 Temp: 37.2 C (98.9 F) 37.4 C (99.4 F) 37 C (98.6 F) TempSrc: Temporal Temporal SpO2: 98% 92% 95% 97% Intake/Output last 24 hours: I/O last 3 completed shifts: In: 150 [P.O.:150] Out: 700 [Urine:700] No intake/output data recorded. Recent Labs 08/12/23 035 WBC 3.4* HGB 7.8* HCT 24.9* MCV 88.6 Recent Labs 08/12/23 0357 NA 135 K 3.4* CL 106 CO2 25 Gen: No acute distress. Alert and oriented Extremity: Lower Extremity Motor: HF Q TA EHL GSC Right 4- 4 5 4 5 Left 4- 4 5 4 5 Lower extremity sensation to light touch: L2 L3 L4 L5 S1 Right Intact Intact Intact Intact Intact Left Intact Intact Intact Intact Intact Lower extremity pulses: DP Right 2+ Left 2+ Wound: Dressing CDI. No evidence of hematoma. Samantha Oliver MD 08/13/2023 2:30 PM * Apolinar Yin MD - 08/13/2023 12:38 PM EDT Images from the original note were not included. Hospitalist Progress Note 08/13/2023 Assessment/Plan: Data: (CAT1) Reviewed 2 notes from different specialty or health system (each=1). (CAT1) Reviewed 2 labs/studies ordered by another provider not previously counted (each=1, panels count as 1). (LOW: 2x CAT1 or independent historian MOD: 3x CAT1 or 1x CAT3 EXTENSIVE: 3x CAT1 and 1x CAT3) Acute, acute on chronic, unstable/uncontrolled chronic problems/diagnoses: S/p lumbar laminectomy with fusion and allograft on 08/08 Acute anemia Thrombocytopenia Tachycardia Anxiety, anxiousness, tearfulness Confusion, likely delirium Hypokalemia-replace Low TSH, normal free T4 Stable chronic problems affecting care, new non-acute diagnoses: COPD with chronic respiratory failure, 3 LNC GENNARO on CPAP Pulmonary hypertension HFpEF CKD HTN -No reported bleeding, likely some component of perioperative blood loss -S/p 2U PRBC this admission -Thrombocytopenia in the setting of pain, surgery, steroids. Did not receive heparin products. No active bleeding. Trend -Tachycardia likely related to pain -D-dimer 0.79 -LE duplex negative for DVT -Check VQ scan: negative -Confusion likely delirium related to pain meds, anxiety meds, benzo withdrawal, postop pain, anemia, borderline BP -Continue pain meds and anxiety meds as needed, but judicial use -Appreciate psychiatry: Home Restoril started at decreased dose of 50 mg nightly. As needed Ativan added as well to avoid benzo withdrawal -Home Coreg held given borderline BP - PT/OT/CM/SW - delirium precautions: increase activity - DVT prophylaxis: SCDs and encourage ambulation Total time spent (which include face to face and non face to face encounters) : 36 minutes D/W RN Complexity: Acute illness with systemic symptoms (MOD). Multiple stable chronic illnesses (MOD). Risk: Admission to hospital-level care was considered or occurred (HIGH). Advance Directive: No Order Toxic drug monitoring/narrow therapeutic index drug monitoring : # Drug name : # Route administered: # Method of monitoring: Subjective: Admit Date: 08/09/2023 PCP: Bernardino Moran MD Room#: [id number]/[id number] A Brief Hospital course: Patient is a 62-year-old female with history of COPD on chronic O2, HTN, pulmonary hypertension, diastolic HF, CKD, GENNARO, HLD, anxiety/depression who was admitted for elective lumbar laminectomy with hardware removal, fusion thoracic 11-L3 with allograft Interval History: Seen this morning heart rate 116 LE duplex was negative for DVT yesterday Patient is alert and oriented x 3, but tends to ask same repetitive questions Continues to be tearful and anxious Adult diet Regular 24HR INTAKE/OUTPUT: Intake/Output Summary (Last 24 hours) at 08/13/2023 1238 Last data filed at 08/12/2023 1922 Gross per 24 hour Intake 150 ml Output -- Net 150 ml Past Medical History: Past Medical History: Diagnosis Date 2018 novel coronavirus disease (COVID-19) Alcohol dependence with uncomplicated withdrawal (HCC) 07/07/2020 Allergic Anxiety Arthritis Asthma Bronchiectasis (HCC) COPD exacerbation (HCC) 10/24/2019 Depression Diaphragm paralysis Diastolic heart failure (HCC) Dizziness 11/09/2020 Dvt femoral (deep venous thrombosis) (HCC) right...was on blood thinners after broken ankle have been off thinners for a few years Fall 11/21/2020 GERD (gastroesophageal reflux disease) Hypertension Kidney disease Kidney failure 01/09/2019 Kidney stone Obesity Oxygen decrease Currently on Home oxygen, uses with exertion Pulmonary hypertension (HCC) Pulmonary hypertension (HCC) Weakness 11/21/2020 LABS: CBC: Recent Labs 08/11/23 0153 08/11/23 0958 08/11/23 1553 08/12/23 0357 WBC 4.0 -- -- 3.4* RBC 2.38* -- -- 2.81* HGB 6.5* 6.9* 7.9* 7.8* HCT 21.2* 22.4* 24.8* 24.9* MCV 89.1 -- -- 88.6 RDW 14.8 -- -- 16.0* PLT 116* -- -- 87* BMP: Recent Labs 08/11/23 0153 08/12/23 0357 NA 133* 135 K 3.3* 3.4* CL 102 106 CO2 27 25 BUN 21* 17 CREATININE 1.20* 1.12* GLUCOSE 114* 106* CALCIUM 8.4 8.2* ANIONGAP 4 5 LIVER PROFILE:No results for input(s): AST, ALT, BILITOT, ALKPHOS, PROT in the last 72 hours. No lab exists for component: LABALBU PT/INR: No results for input(s): PROTIME, INR in the last 72 hours. CARDIAC ENZYMES: No results for input(s): TROPONINI in the last 72 hours. Procalcitonin: No results found for: PROCAL COVID-19 PCR: No results for input(s): COVID19 in the last 72 hours. Objective: Vitals: BP 105/73 (BP Location: Right arm, Patient Position: Lying) Pulse 116 Temp 37 C (98.6 F) Resp 14 SpO2 97% Pulse Ox: SpO2 Av.7 % Min: 92 % Max: 97 % Supplemental O2: O2 Flow Rate (L/min): 2 L/min Physical Exam Vitals and nursing note reviewed. Constitutional: Appearance: Normal appearance. She is obese. Cardiovascular: Rate and Rhythm: Normal rate. Pulmonary: Effort: Pulmonary effort is normal. Abdominal: General: Abdomen is flat. Neurological: Mental Status: She is alert. Psychiatric: Mood and Affect: Mood normal. Behavior: Behavior normal. Medications: acetaminophen, 650 mg, Oral, q6h [Held by provider] carvedilol, 3.125 mg, Oral, qPM folic acid, 1 mg, Oral, Daily Lidocaine, 1 patch, Topical, Daily mometasone-formoterol, 2 puff, Inhalation, BID pantoprazole, 40 mg, Oral, q AM rosuvastatin, 40 mg, Oral, Nightly senna-docusate sodium, 2 tablet, Oral, Daily sodium chloride 0.9%, 10 mL, IntraVENous, 2 times per day temazepam, 15 mg, Oral, Nightly thiamine, 100 mg, Oral, Daily trospium, 20 mg, Oral, BID Extended Emergency Contact Information Primary Emergency Contact: Carlita Palencia Mobile Relation: Sister Apolinar Yin MD Division of Hospitalist Medicine [facility] * Talya Peterson MD - 08/13/2023 10:45 AM EDT Alfie Hogan is a 62 y.o.female No chief complaint on file. Patient seen and examined, history of dysthymia, back pain. S/P OR, has been confused and anxious since surgery. 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 Patient denies SI, is angry at perceived lapses of care. Who called you! Patient lives with ex-, plans to move out when feeling better. Denies alcohol use for over 14 years. Denies SI. Past Medical History: Diagnosis Date 2018 novel coronavirus disease (COVID-19) Alcohol dependence with uncomplicated withdrawal ([facility]) 07/07/2020 Allergic Anxiety Arthritis Asthma Bronchiectasis ([facility]) COPD exacerbation ([facility]) 10/24/2019 Depression Diaphragm paralysis Diastolic heart failure ([facility]) Dizziness 11/09/2020 Dvt femoral (deep venous thrombosis) ([facility]) right...was on blood thinners after broken ankle have been off thinners for a few years Fall 11/21/2020 GERD (gastroesophageal reflux disease) Hypertension Kidney disease Kidney failure 01/09/2019 Kidney stone Obesity Oxygen decrease Currently on Home oxygen, uses with exertion Pulmonary hypertension ([facility]) Pulmonary hypertension ([facility]) Weakness 11/21/2020 Current Outpatient Medications Medication Instructions albuterol (Ventolin HFA) 108 (90 Base) MCG/ACT inhaler 2 puffs, Inhalation, Every 4 hours PRN carvedilol (Coreg) 3.125 MG tablet take 1 tablet by mouth every morning and 1 tablet by mouth everyevening with meals cefadroxil (DURICEF) 500 mg, Oral, 2 times daily docusate sodium (COLACE) 100 mg, Oral, 2 times daily Dulera 100-5 MCG/ACT inhaler INHALE 2 PUFFS BY MOUTH EVERY MORNING AND INHALE 2 PUFFS EVERY EVENING FLUoxetine (PROZAC) 40 mg, Oral, Daily hydrOXYzine pamoate (Vistaril) 50 MG capsule take 1 capsule by mouth every 8 hours if needed NON FORMULARY Bipap machine oxyCODONE-acetaminophen (Percocet) 5-325 MG tablet 1 tablet, Oral, Every 4 hours PRN oxygen (O2) gas 3 L, Inhalation, Continuous, via nasal canula pantoprazole (PROTONIX) 40 mg, Oral, Every morning potassium chloride CR (Klor-Con M20) 20 MEQ ER tablet TAKE 1 TABLET BY MOUTH TWICE A DAY *DO NOT CRUSH OR CHEW rivastigmine (Exelon) 1.5 MG capsule TAKE 1 CAPSULE BY MOUTH TWICE A DAY rosuvastatin (CRESTOR) 40 mg, Oral, Nightly traZODone (DESYREL) 150 mg, Oral, Nightly trospium (SANCTURA) 20 mg, Oral, 2 times daily Allergies Allergen Reactions Bee Pollen Cat Hair Extract Other reaction(s): Other: See Comments Dust Mite Extract Unknown Penicillins Pollen Extract And ragweed Seasonal Ic [Cholestatin] Other reaction(s): itchy eyes Past Surgical History: Procedure Laterality Date ABDOMINAL SURGERY ADENOIDECTOMY ANKLE SURGERY Right 07/19/2021 APPENDECTOMY 2003 BACK SURGERY CHOLECYSTECTOMY 2004 EXTREMITY SURGERY Left 07/2021 elbow FRACTURE SURGERY HERNIA REPAIR 1972 JOINT REPLACEMENT Bilateral hips LUMBAR DISC SURGERY LUMBAR DISC SURGERY N/A 08/09/2023 REMOVAL HARDWARE LUMBAR 3/4/5, LAMINECTOMY LUMBAR 2, FUSION THORACIC 11-LUMBAR 3, INSTRUMENTATION THORACIC 11-LUMBAR 5, ALLOGRAFT, BONE MORPHOGENETIC PROTEIN TENDON RELEASE Right Right arm TONSILLECTOMY TONSILLECTOMY (HISTORICAL) 1965 TOTAL ABDOMINAL HYSTERECTOMY 2001 Family History Problem Relation Name Age of Onset Mental illness Mother Jhoana Cancer Mother Jhoana pancreatic Alcohol abuse Mother Jhoana Depression Mother Jhoana High Blood Pressure Father Geronimo Cancer Father Geronimo colon Alcohol abuse Father Geronimo Hypertension Father Geronimo Colon cancer Father Geronimo Alcohol abuse Sister Cr Alcohol abuse Brother Noah Social History Tobacco Use Smoking status: Former Packs/day: 0.50 Years: 15.00 Additional pack years: 0.00 Total pack years: 7.50 Types: Cigarettes Quit date: 06/04/2005 Years since quittin.2 Smokeless tobacco: Never Vaping Use Vaping Use: Never used Substance Use Topics Alcohol use: Not Currently Drug use: No Vitals: 08/12/23 0815 08/12/23 1922 08/12/23 2232 08/13/23 0829 BP: 121/77 130/84 105/73 BP Location: Right arm Right arm Right arm Patient Position: Lying Lying Pulse: 104 112 108 116 Resp: 16 16 14 Temp: 37.2 C (98.9 F) 37.4 C (99.4 F) 37 C (98.6 F) TempSrc: Temporal Temporal SpO2: 98% 92% 95% 97% Review of Systems Constitutional: Positive for fatigue. Musculoskeletal: Positive for back pain and gait problem. Psychiatric/Behavioral: Positive for confusion, decreased concentration, dysphoric mood and sleep disturbance. Negative for suicidal ideas. The patient is nervous/anxious. Physical Exam Constitutional: Appearance: She is ill-appearing. Cardiovascular: Rate and Rhythm: Tachycardia present. Pulmonary: Effort: Pulmonary effort is normal. Neurological: General: No focal deficit present. Mental Status: She is alert and oriented to person, place, and time. Mental status is at baseline. Psychiatric: Attention and Perception: She is attentive. She does not perceive auditory or visual hallucinations. Mood and Affect: Mood is anxious. Affect is labile. Behavior: Behavior is hyperactive. Thought Content: Thought content is paranoid. Thought content is not delusional. Thought content does not include suicidal ideation. Judgment: Judgment is not impulsive or inappropriate. 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) * (Principal) Lumbar radiculopathy - Primary Relevant Medications oxyCODONE-acetaminophen (Percocet) 5-325 MG tablet Other Relevant Orders FL GUIDANCE OR USE ONLY - NON RESULTABLE (Completed) Respiratory COPD exacerbation (HCC) Chronic hypoxemic respiratory failure (HCC) Circulatory Hypertensive heart and chronic kidney disease with heart failure and stage 1 through stage 4 chronic kidney disease, or unspecified chronic kidney disease (HCC) Relevant Medications carvedilol (Coreg) tablet 3.125 mg Digestive Ulcerative colitis, unspecified, without complications (HCC) Endocrine/Metabolic Morbid (severe) obesity due to excess calories (HCC) Hematologic Other pancytopenia (CMS/HCC) (HCC) Other Current moderate episode of major depressive disorder without prior episode (HCC) Other Visit Diagnoses Suspected deep vein thrombosis (DVT) Relevant Orders Vascular US lower extremity venous duplex bilateral (Completed) Delirium Benzodiazepine withdrawal Dysthymia. Plan Patient does not wish to start duloxetine for depressed mood or pain relief. Will cautiously resume restoril and address any emerging benzodiazepine withdrawal with lorazepam PRN/ * Apolinar Yin MD - 08/12/2023 1:24 PM EDT Images from the original note were not included. Hospitalist Progress Note 08/12/2023 Assessment/Plan: Data: (CAT1) Reviewed 2 notes from different specialty or health system (each=1). (CAT1) Reviewed 2 labs/studies ordered by another provider not previously counted (each=1, panels count as 1). (LOW: 2x CAT1 or independent historian MOD: 3x CAT1 or 1x CAT3 EXTENSIVE: 3x CAT1 and 1x CAT3) Acute, acute on chronic, unstable/uncontrolled chronic problems/diagnoses: S/p lumbar laminectomy with fusion and allograft on 08/08 Acute anemia Thrombocytopenia Tachycardia Anxiety Confusion, likely delirium Hypokalemia-replace Low TSH, normal free T4 Stable chronic problems affecting care, new non-acute diagnoses: COPD with chronic respiratory failure, 3 LNC GENNARO on CPAP Pulmonary hypertension HFpEF CKD HTN -No reported bleeding, likely some component of perioperative blood loss -S/p 2U PRBC -Thrombocytopenia in the setting of pain, surgery, steroids. Did not receive heparin products. No active bleeding. Trend -Tachycardia likely related to pain -D-dimer 0.79 -Check LE duplex -Consider CTA -Confusion likely delirium related to pain meds, anxiety meds, significant pain yesterday, anemia, borderline BP -Continue pain meds and anxiety meds as needed, but judicial use -Home Coreg held given borderline BP - PT/OT/CM/SW - delirium precautions: increase activity - DVT prophylaxis: SCDs and encourage ambulation Total time spent (which include face to face and non face to face encounters) : 36 minutes Complexity: Acute illness with systemic symptoms (MOD). Multiple stable chronic illnesses (MOD). Risk: Admission to hospital-level care was considered or occurred (HIGH). Advance Directive: No Order Toxic drug monitoring/narrow therapeutic index drug monitoring : # Drug name : # Route administered: # Method of monitoring: Subjective: Admit Date: 08/09/2023 PCP: Bernardino Moran MD Room#: [id number]/[id number] A Brief Hospital course: Patient is a 62-year-old female with history of COPD on chronic O2, HTN, pulmonary hypertension, diastolic HF, CKD, GENNARO, HLD, anxiety/depression who was admitted for elective lumbar laminectomy with hardware removal, fusion thoracic 11-L3 with allograft Interval History: Still with some tachycardia, BP on lower end but stable Slightly disoriented on my Evaluation today Hemoglobin stable. Platelets decreasing Adult diet Regular 24HR INTAKE/OUTPUT: Intake/Output Summary (Last 24 hours) at 08/12/2023 1324 Last data filed at 08/12/2023 0412 Gross per 24 hour Intake 309 ml Output 1700 ml Net -1391 ml Past Medical History: Past Medical History: Diagnosis Date 2019 novel coronavirus disease (COVID-19) Alcohol dependence with uncomplicated withdrawal (HCC) 07/07/2020 Allergic Anxiety Arthritis Asthma Bronchiectasis (HCC) COPD exacerbation (HCC) 10/24/2019 Depression Diaphragm paralysis Diastolic heart failure (HCC) Dizziness 11/09/2020 Dvt femoral (deep venous thrombosis) (HCC) right...was on blood thinners after broken ankle have been off thinners for a few years Fall 11/21/2020 GERD (gastroesophageal reflux disease) Hypertension Kidney disease Kidney failure 01/09/2019 Kidney stone Obesity Oxygen decrease Currently on Home oxygen, uses with exertion Pulmonary hypertension (HCC) Pulmonary hypertension (HCC) Weakness 11/21/2020 LABS: CBC: Recent Labs 08/10/23 0115 08/11/23 0153 08/11/23 0958 08/11/23 1553 08/12/23 0357 WBC 5.3 4.0 -- -- 3.4* RBC 2.75* 2.38* -- -- 2.81* HGB 7.6* 6.5* 6.9* 7.9* 7.8* HCT 24.7* 21.2* 22.4* 24.8* 24.9* MCV 89.8 89.1 -- -- 88.6 RDW 14.6 14.8 -- -- 16.0* PLT 123* 116* -- -- 87* BMP: Recent Labs 08/10/23 0115 08/11/23 0153 08/12/23 0357 NA 132* 133* 135 K 4.1 3.3* 3.4* CL 99 102 106 CO2 22 27 25 BUN 17 21* 17 CREATININE 1.20* 1.20* 1.12* GLUCOSE 130* 114* 106* CALCIUM 8.4 8.4 8.2* ANIONGAP 11 4 5 LIVER PROFILE:No results for input(s): AST, ALT, BILITOT, ALKPHOS, PROT in the last 72 hours. No lab exists for component: LABALBU PT/INR: Recent Labs 08/10/23 0755 PROTIME 11.0 INR 1.0 CARDIAC ENZYMES: No results for input(s): TROPONINI in the last 72 hours. Procalcitonin: No results found for: PROCAL COVID-19 PCR: No results for input(s): COVID19 in the last 72 hours. Objective: Vitals: BP 121/77 (BP Location: Right arm, Patient Position: Lying) Pulse 104 Temp 37.2 C (98.9F) (Temporal) Resp 16 SpO2 98% Pulse Ox: SpO2 Av % Min: 98 % Max: 100 % Supplemental O2: O2 Flow Rate (L/min): 2 L/min Physical Exam Vitals and nursing note reviewed. Constitutional: Appearance: Normal appearance. She is obese. Cardiovascular: Rate and Rhythm: Normal rate. Pulmonary: Effort: Pulmonary effort is normal. Abdominal: General: Abdomen is flat. Neurological: Mental Status: She is alert. Psychiatric: Mood and Affect: Mood normal. Behavior: Behavior normal. Medications: acetaminophen, 650 mg, Oral, q6h [Held by provider] carvedilol, 3.125 mg, Oral, qPM Lidocaine, 1 patch, Topical, Daily mometasone-formoterol, 2 puff, Inhalation, BID pantoprazole, 40 mg, Oral, q AM rosuvastatin, 40 mg, Oral, Nightly senna-docusate sodium, 2 tablet, Oral, Daily sodium chloride 0.9%, 10 mL, IntraVENous, 2 times per day trospium, 20 mg, Oral, BID Extended Emergency Contact Information Primary Emergency Contact: Carlita Palencia Mobile Relation: Sister Apolinar Yin MD Division of Hospitalist Medicine [facility] * Tomas Davidson JD, MD - 08/12/2023 11:41 AM EDT Orthopaedic Spine Progress Note Name: Alfie Hogan Date of : 1960 Age: 62 y.o. Admission Date/Time: 08/09/2023 7:14 AM Assessment: Alfie Hogan is a 62 y.o. female s/p T11-L3 PSF, L2 lami, JEAN L3-L5 08/08 Plan: -Operative plans: No further plans for surgery this admission -Weight bearing as tolerated -Range of motion parameters: ROM as tolerated -Consults: Internal medicine consult for medical management -Antibiotics: home PO duricef for 10 days -Dressings: Keep bandage clean dry and intact for 7-10 days post operatively, then ok to leave opento air if incision is without drainage. -Diet: no restrictions from ortho standpoint -Labs: CBC & BMP x 2 days post op -hgb stable 7.8 this morning -PT/OT -PT recommended outpatient/post discharge?: Yes, for basic ADLs -Medical management, dvt ppx and pain control per primary -DVT ppx recommended?: SCDs and ambulation -Follow-up with Dr Bean in 2 weeks -Ortho primary team. -Dispo: SNF p Subjective: Doing better today. Discussed waiting for rehab. Objective Most Recent Vitals: Vitals: 08/11/23 1220 08/11/23 1446 08/11/23201408/12/23 0815 BP: (!) 90/58 94/60 92/62 121/77 BP Location: Right arm Right arm Patient Position: Lying Lying Pulse: 99 97 102 104 Resp: 16 16 16 Temp: 36.6 C (97.8 F) 36.6 C (97.8 F) 36.7 C (98 F) 37.2 C (98.9 F) TempSrc: Temporal Temporal Temporal Temporal SpO2: 100% 100% 99% 98% Intake/Output last 24 hours: I/O last 3 completed shifts: In: 663 [Blood:663] Out: 2875 [Urine:2800; Drains:75] No intake/output data recorded. Recent Labs 08/12/23 035 WBC 3.4* HGB 7.8* HCT 24.9* MCV 88.6 Recent Labs 08/12/23 0357 NA 135 K 3.4* CL 106 CO2 25 Gen: No acute distress. Alert and oriented Extremity: Lower Extremity Motor: HF Q TA EHL GSC Right 3 4 5 4 5 Left 3 4 5 4 5 Lower extremity sensation to light touch: L2 L3 L4 L5 S1 Right Intact Intact Intact Intact Intact Left Intact Intact Intact Intact Intact Lower extremity pulses: DP Right 2+ Left 2+ Wound: Dressing CDI. No evidence of hematoma. Tomas Davidson MD 08/12/2023 11:42 AM * Airam Coughlin, CORPORATE AUDITOR - 08/12/2023 9:37 AM EDT Images from the original note were not included. PHYSICAL THERAPY [facility] Treatment Note Name/MRN: Kayce Hogan ([id number]) Date of : 1960 Age: 62 y.o. [facility] Discharge Recommendation: Group Home Facility Equipment Needed: No Prior Level of Function ADL Assistance: Needs Assist Ambulation Assistance: Independent Device(s) used: rollator Transfer Assistance: Independent Assessment Pt mod assist x 2 skilled therapist for all functional mobility to safely progress patient towards functional goals. Increase time to complete task. Pt tearful at times. Difficulty with word finding.Decrease safety awareness and at risk for falls. Rec SNF upon discharge. Subjective Pt in bed, agreeable to PT. Tearful, not sure when she last had her pain meds. Pain: 0-10 pain scale: 8/10 Location: back Medical Precautions: No active isolations Proper PPE donned/doffed in accordance with facility standards. Fall Risk: Kenyon Fall Risk Score: 100 (High Risk) Precautions/Restrictions: Other Position/Activity Restriction: ROM as shan, WBAT per chart review, per ortho note no immobilization needed but pt brought brace from home. Lines/Drains/Airways: PIV, compression pumps, 2 L O2 NC Overall Cognitive Status: Exceptions - Following commands: follows one step commands with increased time and inconsistently follows commands - Attention span: difficulty attending to directions - Safety judgement: decreased awareness of need for assistance and decreased awareness of need for safety - Problem solving: assistance required to generate solutions, assistance required to implement solutions, assistance required to identify errors made, assistance required to correct errors made, and decreased awareness of errors - Insights: decreased awareness of deficits - Initiation: requires cues for all - Sequencing: requires cues for some Overall Orientation Status: Oriented to Person Family/Caregiver Present: none Objective Ambulation Ambulation 1 Assistive device(s) used: front wheeled walker Assist level: Mod Assist, x2 Person Assist Distance (ft): 15ft Quality of gait: uneven step length, wide BRETT, slow james, instability through all phases, cues for sequencing, assist for walker management, poor safety awareness, cues for direction. Ambulation 2 Assistive device(s) used: front wheeled walker Assist level: Mod Assist, x2 Person Assist Distance (ft): 10ft Quality of gait: uneven step length, slow james, instability through all phases, assist with walker management, cues for sequencing, increase time required. Transfers/Mobility Sit to stand: Mod Assist, x2 Person Assist Stand to sit: Mod Assist, x2 Person Assist X 2 reps; EOB and toilet. Cues for hand placement and sequencing. Device(s) used: front wheeled walker Exercises Exercises Heelslides: x 5 reps each Gluteal Sets: x 10 reps Knee Long Arc Quad: x 10 reps each Ankle Pumps: x 10 reps each Other exercises Other exercises?: Yes Other exercises 1: I.S. x 8 reps, 1500mL Bed Mobility Supine to sit: Mod Assist, x2 Person Assist Rolling to right: Min Assist Scooting: Min Assist HOB elevated, bed rails used. Increase time. Cues for sequencing. Balance: seated at EOB, UE support, no c/o dizziness, min assist for balance and safety, pt with postural sway. Standing with FWW, wide BRETT, postural sway, varied between min/mod assist x 2 for balance and safety. Plan Continue acute PT per plan of care. Safety/Education Safety Safety Devices in place: call light within reach, left in chair, chair alarm in place, gait belt, patient at risk for falls, and nurse notified Restraints: No Education Education Given To: patient Education Provided: PT Goals, Gait Training, Plan of Care, Home Exercise Program, Precautions, Transfer Training, Fall Prevention Education, Discharge Recommendations, Benefits of Increasing Activity, and Breathing Techniques Education Method: Verbal Barriers to Learning: Cognition Education Outcome: Continued Education Needed Outcome Measures AM-PAC AM-PAC Inpatient Mobility Raw Score (No Stairs) : 10 JH-HLM JH-HLM Score: Walked 25 ft or more (i.e. walked outside of room) Goals Patient Stated Goal: none stated Encounter Problems Encounter Problems (Active) Balance Patient will maintain static standing balance for 2-3 minutes with supervision in order to demonstrate decreased risk of falling. (Progressing) Start: 08/10/23 Expected End: 08/24/23 Patient will maintain static sitting balance for 2-3 minutes with supervision in order to demonstrate improved postural control and prepare for out of bed mobility. (Progressing) Start: 08/10/23 Expected End: 08/24/23 Mobility Patient will ambulate 50 feet with min assist and rolling walker in order to improve safety and independence with mobility. (Progressing) Start: 08/10/23 Expected End: 08/24/23 Pain - Adult Transfers Patient will perform bed mobility with min assist in order to improve independence and prepare for out of bed mobility. (Progressing) Start: 08/10/23 Expected End: 08/24/23 Patient will complete sit to stand transfer with CGA to wheeled walker in order to improve safety and prepare for out of bed mobility. (Progressing) Start: 08/10/23 Expected End: 08/24/23 Therapy Time Individual Co-treatment Time In 0752 Time Out 0815 Minutes 23 Timed Code Treatment Minutes: 23 Minutes (fa x 2) Airam Coughlin PTA * Yessi Hernández OT - 08/12/2023 8:15 AM EDT Images from the original note were not included. OCCUPATIONAL THERAPY [facility] Initial Evaluation Name/MRN: Kayce Hogan ([id number]) Evaluation Date: 08/12/2023 Date of : 1960 Admission Date: 08/09/2023 7:14 AM Age: 62 y.o. Room[facility]Bed: [facility] Discharge Recommendation: Group Home Facility Equipment Needed: (continue to assess) Assessment IMPRESSION: Patient is a 62-year-old female hospitalized s/p T11-L3 PSF, L2 lami, JEAN L3-5 on 08/08. Patient is functionally independent with self-care tasks and functional mobility at baseline. Patient is limited by the deficits listed below. Patient is Min Assist for UB ADLs, Max Assist LB ADLs andMax Assist toileting. Patient is Mod Assist, x2 Person Assist bed mobility and Mod Assist, x2 Person Assist for transfers/functional mobility. Recommending SNF upon discharge. Performance Deficits /Impairments: Increased Pain, Decreased Functional Mobility, Decreased ADL status, Decreased Strength, Decreased Safety Awareness, Decreased Endurance, Decreased Balance, and Decreased Posture Prognosis: Good Decision Making: Medium Complexity Subjective Patient is supine in bed; patient agreeable to therapy evaluation. RN okay'd for participation. Pain: RN managing pain. Past Medical History: Past Medical History: Diagnosis Date 2018 novel coronavirus disease (COVID-19) Alcohol dependence with uncomplicated withdrawal ([facility]) 07/07/2020 Allergic Anxiety Arthritis Asthma Bronchiectasis ([facility]) COPD exacerbation ([facility]) 10/24/2019 Depression Diaphragm paralysis Diastolic heart failure ([facility]) Dizziness 11/09/2020 Dvt femoral (deep venous thrombosis) ([facility]) right...was on blood thinners after broken ankle have been off thinners for a few years Fall 11/21/2020 GERD (gastroesophageal reflux disease) Hypertension Kidney disease Kidney failure 01/09/2019 Kidney stone Obesity Oxygen decrease Currently on Home oxygen, uses with exertion Pulmonary hypertension ([facility]) Pulmonary hypertension ([facility]) Weakness 11/21/2020 Past Surgical History: Past Surgical History: Procedure Laterality Date ABDOMINAL SURGERY ADENOIDECTOMY ANKLE SURGERY Right 07/19/2021 APPENDECTOMY 2003 BACK SURGERY CHOLECYSTECTOMY 2004 EXTREMITY SURGERY Left 07/2021 elbow FRACTURE SURGERY HERNIA REPAIR 1972 JOINT REPLACEMENT Bilateral hips LUMBAR DISC SURGERY LUMBAR DISC SURGERY N/A 08/09/2023 REMOVAL HARDWARE LUMBAR 3/4/5, LAMINECTOMY LUMBAR 2, FUSION THORACIC 11-LUMBAR 3, INSTRUMENTATION THORACIC 11-LUMBAR 5, ALLOGRAFT, BONE MORPHOGENETIC PROTEIN TENDON RELEASE Right Right arm TONSILLECTOMY TONSILLECTOMY (HISTORICAL) 1966 TOTAL ABDOMINAL HYSTERECTOMY 2001 Admission Diagnosis: Patient Active Problem List Diagnosis Date Noted Lumbar radiculopathy 08/09/2023 Weakness of both lower extremities 02/15/2023 Ataxia 02/15/2023 Urinary frequency 06/07/2022 Bronchitis 06/07/2022 Hematoma (nontraumatic) of breast 06/07/2022 Nausea 05/15/2022 Dementia 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 ([facility]) 12/06/2021 Other pancytopenia (CMS/HCC) ([facility]) 12/06/2021 Hypertensive heart and chronic kidney disease with heart failure and stage 1 through stage 4 chronic kidney disease, or unspecified chronic kidney disease ([facility]) 12/06/2021 Bimalleolar fracture 12/06/2021 Forgetfulness 12/06/2021 Closed fracture of proximal phalanx of toe of left foot 12/06/2021 Personal history of COVID-19 12/06/2021 Postoperative complication 12/06/2021 Subluxation of right ankle joint 12/06/2021 Morbid (severe) obesity due to excess calories (HCC) 12/06/2021 Ulcerative colitis, unspecified, without complications ([facility]) 12/06/2021 Tremor 11/21/2020 Hypokalemia 08/26/2020 Chronic hypoxemic respiratory failure (HCC) 08/26/2020 GERD (gastroesophageal reflux disease) 08/26/2020 GENNARO (obstructive sleep apnea) 08/26/2020 Essential hypertension 08/26/2020 Hyperlipidemia 08/26/2020 Current moderate episode of major depressive disorder without prior episode ([facility]) 08/26/2020 Anxiety 08/26/2020 Diaphragm dysfunction 07/27/2020 Unspecified mood (affective) disorder ([facility]) 07/09/2020 Edema of lower extremity 05/10/2020 Stage 1 chronic kidney disease 05/10/2020 Dependent edema 2019 Hypoxemia 12/16/2018 Colitis 12/16/2018 Arthropathy of multiple sites 04/12/2018 Asthma 04/12/2018 Chronic insomnia 04/12/2018 Primary osteoarthritis of right hip 04/12/2018 DDD (degenerative disc disease), lumbar 04/12/2018 Lumbar scoliosis 04/12/2018 History of right hip replacement 04/12/2018 Medical Precautions: No active isolations Proper PPE donned/doffed in accordance with facility standards. Fall Risk: Kenyon Fall Risk Score: 100 (High Risk) Precautions/Restrictions: Spine Precautions: No Bending, No Lifting, No Twisting Lines/Drains/Airways: PIV Family/Caregiver Present: none Overall Cognitive Status: Exceptions - Following commands: follows one step commands with increased time and follows one step commands with repetition - Safety judgement: decreased awareness of need for assistance and decreased awareness of need for safety - Problem solving: decreased awareness of errors - Sequencing: requires cues for some Overall Orientation Status: Oriented to Person Social/Functional History Patient admitted from home. Lives With: Other Type of Home: Patient states that she is living with her ex- in a 2SH with 1st floor set-up Home Layout: Two Level Home and Able to Live on Main Level Home Access: Stairs to Enter with Rails (# of stairs: 3) Bathroom Shower/Tub: Tub/Shower Combo-shower chair Toilet: N/A Home Equipment: 4 wheeled walker, cane Homemaking Responsibilities: Needs Assist Receives Help From: Other Active Cleaner Laboratory Equipment: Yes Prior Level of Function ADL Assistance: Independent Ambulation Assistance: Independent Transfer Assistance: Independent Objective ADLs LE Dressing: Max Assist, donning socks Toileting: Max Assist, misti-care and clothing management Upper Extremity Assessment AROM: WFL PROM: WFL Strength: Exceptions: BUE strength: 3/5 Vision: no visual deficits Hearing: normal Bed Mobility Supine to sit: Mod Assist, x2 Person Assist Scooting: Mod Assist, x2 Person Assist HOB elevated; no use of bed rail. Increased time for completion. Patient with FAIR sitting balance but with some retro push back resulting in sliding. Transfers/Functional Mobility Sit to stand: Mod Assist, x2 Person Assist Stand to sit: Mod Assist, x2 Person Assist Toilet: Mod Assist, x2 Person Assist Sitting balance: Contact Guard Standing balance: Mod Assist, x2 Person Assist Functional mobility: Mod Assist, x2 Person Assist Patient mod A x 2 for sit-stand from EOB. Patient ambulated to commode with mod A x 2 and FWW. Patient pushing FWW out in front of herself. Patient ambulated past commode in bathroom and required modA to navigate to get to commode. Patient mod A x 2 for transfer off commode with max verbal cueing for getting legs underneath patient. Patient mod A x 2 for ambulating back to chair. Again, having difficulty navigating to get to chair. POOR balance and limited tolerance. Device(s) used: front wheeled walker AM-PAC AM-PAC Inpatient Daily Activity Raw Score: 14 ADL Inpatient CMS G-Code Modifier: CK Plan Pt would benefit from skilled acute OT services to address Strengthening, Balance Training, Functional Mobility Training, Endurance Training, Gait Training, Pain Management, Safety Education and Training, Patient/Caregiver Training, and Self-Care/ADL Training. Frequency: 4x/week for 4 weeks Barriers: Pain, Confusion, Cognitive deficit, Impulsivity, Limited safety awareness, and Decreased endurance Prognosis: fair Safety/Education Safety Safety Devices in place: All fall risk precautions in place, call light within reach, left in chair, chair alarm in place, gait belt, and nurse notified Restraints: No Education Education Given To: patient Education Provided: OT Role, Plan of Care, Precautions, and Discharge Recommendations Education Method: Verbal Barriers to Learning: Cognition Education Outcome: Continued Education Needed Goals Patient Stated Goal: to get stronger Encounter Problems Encounter Problems (Active) Balance Patient will maintain dynamic standing balance for 3-5 minutes with min assist in order to demonstrate decreased risk of falling. Start: 08/12/23 Expected End: 09/09/23 Bathing Patient will utilize adaptive techniques to bathe body min A. Start: 08/12/23 Expected End: 09/09/23 Dressing Upper Extremities Patient will complete upper body dressing SBA. Start: 08/12/23 Expected End: 09/09/23 Dressings Lower Extremities Patient will dress lower body min A. Start: 08/12/23 Expected End: 09/09/23 Toileting Patient will complete toileting tasks at standard toilet with min assist. Start: 08/12/23 Expected End: 09/09/23 Therapy Time Individual Co-treatment Time In 0752 Time Out 0815 Minutes 23 Timed Code Treatment Minutes: 10 Minutes (self care- 1) Yessi Hernández OT Patient's Occupational Therapy Plan of Care supervision is transferred to a [facility] Services Occupational Therapist. Goals and/or treatment plan was established in collaboration with patient/family/other representatives. * Hattie Brown RCP - 08/11/2023 10:09 PM EST [facility] Respiratory Care Department Progress Note Comment or reasoning for refusal: Patient was seen in attempts to fulfill CPAP/BiPAP/AutoPAP order. Patient refused PAP therapy/studyat this time. Patient was educated on medical need and reasoning for physician order to ensure patient was making an informed medical decision. All of the patient's questions were answered at this time and patient was informed that if the patient changes their mind regarding wearing PAP to hit their call light or inform their nurse to contact Respiratory. A second, consecutive night of refusing PAP therapy/study results in order completion in the EMR. If future CPAP/BiPAP/AutoPAP therapy or study is indicated please place another order in the EMR and the assigned Respiratory Therapist will reattempt to fulfill orders. Reason for refusal: Thank you for involving Respiratory in the care of this patient, * Samantha Oliver MD - 08/11/2023 7:52 PM EST Brief Orthopaedic Surgery Progress Note Examined patient at bedside for drain removal. Patient is doing well with no new complaints from last exam. The lumbar drain was removed and the drain site was reinforced with necessary bandaging. Very minimal serosanguinous drainage out of the site was noted. Post-operative dressing was saturated and changed. The patient tolerated this well. -Operative plans: No further plans for surgery this admission -Weight bearing as tolerated -Range of motion parameters: ROM as tolerated -Consults: Internal medicine consult for medical management -Antibiotics: ancef until lumbar drain removed, then home PO duricef for 10 days -Dressings: Keep bandage clean dry and intact for 7-10 days post operatively, then ok to leave opento air if incision is without drainage. -Diet: no restrictions from ortho standpoint -Labs: CBC & BMP x 2 days post op -PT/OT -PT recommended outpatient/post discharge?: Yes, for basic ADLs -Medical management, dvt ppx and pain control per primary -DVT ppx recommended?: SCDs and ambulation -Follow-up with Dr Bean in 2 weeks -Ortho primary team. -Dispo: [facility] Samantha Oliver MD PGY-2 Orthopaedic Surgery 08/11/2023 7:53 PM * Aliya Hoff - 08/11/2023 1:38 PM EST Nutrition rescreen completed. Chart reviewed. Patient to be monitored and followed by the diet special effects technician. KANE Kang * Apolinar Yin MD - 08/11/2023 1:26 PM EST Images from the original note were not included. Hospitalist Progress Note 08/11/2023 Assessment/Plan: Data: (CAT1) Reviewed 2 notes from different specialty or health system (each=1). (CAT1) Reviewed 2 labs/studies ordered by another provider not previously counted (each=1, panels count as 1). (LOW: 2x CAT1 or independent historian MOD: 3x CAT1 or 1x CAT3 EXTENSIVE: 3x CAT1 and 1x CAT3) Acute, acute on chronic, unstable/uncontrolled chronic problems/diagnoses: S/p lumbar laminectomy with fusion and allograft on 08/08 Acute anemia Tachycardia Anxiety Confusion, likely delirium Stable chronic problems affecting care, new non-acute diagnoses: COPD with chronic respiratory failure, 3 LNC GENNARO on CPAP Pulmonary hypertension HFpEF CKD HTN -No reported bleeding, likely some component of perioperative blood loss -S/p 2U PRBC -Tachycardia likely related to pain -D-dimer 0.79 -Consider LE duplex or CTA to rule out out if tachycardia does not improve -Confusion likely delirium related to pain meds, anxiety meds, significant pain yesterday, anemia, borderline BP -Continue pain meds and anxiety meds as needed, but judicial use -Check TSH, B12. Reviewed vitamin D from June -Home Coreg held given borderline BP - PT/OT/CM/SW - delirium precautions: increase activity - DVT prophylaxis: SCDs and encourage ambulation Total time spent (which include face to face and non face to face encounters) : 40 minutes D/W RN Complexity: Acute illness with systemic symptoms (MOD). Multiple stable chronic illnesses (MOD). Risk: Admission to hospital-level care was considered or occurred (HIGH). Advance Directive: No Order Toxic drug monitoring/narrow therapeutic index drug monitoring : # Drug name : # Route administered: # Method of monitoring: Subjective: Admit Date: 08/09/2023 PCP: Bernardino Moran MD Room#: [id number]/H-0059 A Brief Hospital course: Patient is a 62-year-old female with history of COPD on chronic O2, HTN, pulmonary hypertension, diastolic HF, CKD, GENNARO, HLD, anxiety/depression who was admitted for elective lumbar laminectomy with hardware removal, fusion thoracic 11-L3 with allograft Interval History: Patient seen and evaluated at bedside Alert and oriented x 3 on my eval, but RN noted patient having episodes of forgetfulness and confusion. Asked same questions multiple times Adult diet Regular 24HR INTAKE/OUTPUT: Intake/Output Summary (Last 24 hours) at 08/11/2023 1326 Last data filed at 08/11/2023 0808 Gross per 24 hour Intake 2754 ml Output 1650 ml Net 1104 ml Past Medical History: Past Medical History: Diagnosis Date 2018 novel coronavirus disease (COVID-19) Alcohol dependence with uncomplicated withdrawal (HCC) 07/07/2020 Allergic Anxiety Arthritis Asthma Bronchiectasis (HCC) COPD exacerbation (HCC) 10/24/2019 Depression Diaphragm paralysis Diastolic heart failure (HCC) Dizziness 11/09/2020 Dvt femoral (deep venous thrombosis) (HCC) right...was on blood thinners after broken ankle have been off thinners for a few years Fall 11/21/2020 GERD (gastroesophageal reflux disease) Hypertension Kidney disease Kidney failure 01/09/2019 Kidney stone Obesity Oxygen decrease Currently on Home oxygen, uses with exertion Pulmonary hypertension (HCC) Pulmonary hypertension (HCC) Weakness 11/21/2020 LABS: CBC: Recent Labs 08/10/23 0115 08/11/23 0153 08/11/23 0958 WBC 5.3 4.0 -- RBC 2.75* 2.38* -- HGB 7.6* 6.5* 6.9* HCT 24.7* 21.2* 22.4* MCV 89.8 89.1 -- RDW 14.6 14.8 -- PLT 123* 116* -- BMP: Recent Labs 08/10/23 0115 08/11/23 0153 NA 132* 133* K 4.1 3.3* CL 99 102 CO2 22 27 BUN 17 21* CREATININE 1.20* 1.20* GLUCOSE 130* 114* CALCIUM 8.4 8.4 ANIONGAP 11 4 LIVER PROFILE:No results for input(s): AST, ALT, BILITOT, ALKPHOS, PROT in the last 72 hours. No lab exists for component: LABALBU PT/INR: Recent Labs 08/10/23 0755 PROTIME 11.0 INR 1.0 CARDIAC ENZYMES: No results for input(s): TROPONINI in the last 72 hours. Procalcitonin: No results found for: PROCAL COVID-19 PCR: No results for input(s): COVID19 in the last 72 hours. Objective: Vitals: BP (!) 90/58 Pulse 99 Temp 36.6 C (97.8 F) (Temporal) Resp 16 SpO2 100% Pulse Ox: SpO2 Av.3 % Min: 92 % Max: 100 % Supplemental O2: O2 Flow Rate (L/min): 2 L/min Physical Exam Vitals and nursing note reviewed. Constitutional: Appearance: Normal appearance. She is obese. Cardiovascular: Rate and Rhythm: Normal rate. Pulmonary: Effort: Pulmonary effort is normal. Abdominal: General: Abdomen is flat. Neurological: Mental Status: She is alert. Psychiatric: Mood and Affect: Mood normal. Behavior: Behavior normal. Medications: acetaminophen, 650 mg, Oral, q6h [Held by provider] carvedilol, 3.125 mg, Oral, qPM ceFAZolin, 2,000 mg, IntraVENous, q8h Lidocaine, 1 patch, Topical, Daily mometasone-formoterol, 2 puff, Inhalation, BID pantoprazole, 40 mg, Oral, q AM rosuvastatin, 40 mg, Oral, Nightly senna-docusate sodium, 2 tablet, Oral, Daily sodium chloride 0.9%, 10 mL, IntraVENous, 2 times per day trospium, 20 mg, Oral, BID Extended Emergency Contact Information Primary Emergency Contact: Carlita Palencia Mobile Relation: Sister Apolinar Yin MD Division of Hospitalist Medicine [facility] * Manjit Rocha PTA - 08/11/2023 12:49 PM EST Images from the original note were not included. PHYSICAL THERAPY [facility] Name/MRN: Kayce Hogan ([id number]) Date: 08/11/2023 Per RN, Pt w/ low BP, confusion and additional unit of PRBC ordered for low hgb. Will hold PT at this time until Pt is more medically stable for PT. Manjit Rocha PTA * Debora Ortez APRN - [place] - 08/11/2023 10:16 AM EST PAGING: The Acute Pain Service providers are available exclusively via [employer] CH[employer]. APS does not utilize pagers. 08/11/2023 Lab Results Component Value Date CREATININE 1.20 (H) 08/11/2023 CREATININE 0.89 06/07/2022 AST 36 (H) 06/07/2022 ALT 25 06/07/2022 Discharge Recommendations: Percocet 5/325. 1 tab q6h prn Pain Management Adjuvants: 0700 --> 0700 08/09/2023 08/10/23 Scheduled APAP 2300 mg 1950mg Lidocaine patches PRN Hydromorphone IV 2.3 mg 0.5mg Methocarbamol 0 mg Oxycodone 25 mg 35mg Assessment / Pain Management Plan: Pt's pain is conrolled Is very frustrated with discharge process Recs made, will sign off. Thank you for inviting us to participate in the care of this patient. Acute Postsurgical Back pain Multimodal pain regimen: BLOCK: n/a Continue Acetaminophen 650 mg po q6h scheduled ATC. Liver enzymes WNL, last checked: 06/07/22 Continue Lidocaine patch x 1. Cut and place as needed. Continue Hydromorphone 0.25 mg - 0.5 mg IVP q4h prn moderate to severe breakthrough pain. Please utilize oral medications first. Continue Methocarbamol 1000 mg PO TID PRN. Continue Oxycodone 5 - 10 mg po q4h prn moderate to severe breakthrough pain. Continue Naloxone 0.4 mg IVP prn opioid reversal. PRN if respiratory rate is less than 6/min and patient is difficult to arouse then notify physicianSTAT. Mix 9 mL of sodium chloride 0.9% with 0.4 mg (1 mL) of naloxone (NARCAN) in 10 mL syringe. (Note: dilution is 0.04 mg/mL) Give 0.08 mg (2 mL of special dilution), slow IV push, repeat up to 0.4mg (10 mL) or until patient is responsive to physical stimulation and respiratory rate is equal to o r greater than 6 breaths/min. Continue to observe, if no response within 3 minutes of administration of 0.4 mg (10 mL) total, repeat dose (0.4 mg as administered previously). Spinal stenosis, lumbar region Pt is s/p T11-L3 PSF, L2 lami, JEAN L3-L5 08/08 See #1 ETOH dependence Another provider on this service was told in hallway by visitor that patient has addiction problem.ADM was consulted and saw patient 08/10/23 No evidence of alcohol withdrawal, concern for anxiety. Ativan ordered by ADM. Signed off. Appreciate input. GENNARO At risk for respiratory depression in setting of opioid use Currently on 2L NC O2 Continue to monitor, maintain O2 > 89-92% Opioid Use Acute: Expected to be short term post op pain, see #1 OARRS reviewed for past two years. (No opiates RX filled) Reviewed and educated patient on responsible use of opioids: after surgery, it can be normal to experience pain. If it is mild and you can move about without great difficulty or discomfort, you may not need to take pain medication. It is very important to take your pain medication only as needed. Avoiding excessive or unnecessary medication, will enable you to progress your activity each day to improve your muscle tone and movement, deep breathing, digestion, circulation and your body's abilityto heal itself. Constipation At risk for opioid induced constipation Patient currently receiving opioids for pain management necessitating a bowel regimen. Recommend initiating scheduled Sennakot-S 8.6/50mg, 1 tablet PO BID. Would also recommend Milk of Magnesia 400mg/5ml, administer 30mL by mouth daily PRN. Chief Complaint: Back pain History of Present Illness: We have been asked to see this 62 y.o. female for postoperative pain management s/p T11-L3 PSF, L2 lami, JEAN L3-L5 08/09/23 Reviewed EKG 08/02/23 RUTH, no pages. Pt is extremely short with this provider. When asked about pain level it's wicked When asked if pain medications are working hard to say Visibly, she is moving all extremities and tearful. When asked what is wrong she Is at first silentand does not answer the question. Explained to patient that this provider is here to help and would like to know what's going on She states that she is frustrated, thought she would be at skilled nursing by now. Then states that her pain is controlled with the pain medications that she is given. I'm such an IDIOT for responding the way I did RN Then arrived to room. Patient states she doesn't want to be a pain in the.... This provider and RN provided reassurance to patient. Denies f/c, sp, sob, n/v/d Pain Location: Back Aggravating Factors: Moving Sedation score: 1: Awake and alert Pain Severity: severe Pain Quality: does not describe Alleviating Factors: Rest/Pain medications Objective Findings: REVIEW OF SYSTEMS: Pertinent positives as noted in the HPI. All other systems reviewed and negative. PHYSICAL EXAM: Vitals: BP 98/76 Pulse 98 Temp 36.6 C (97.8 F) Resp 16 SpO2 98% BMI Classification: not documented General appearance: No apparent distress, appears stated age and cooperative. HEENT: Normal cephalic, atraumatic without obvious deformity. Pupils equal, round, and reactive to light. Extra ocular muscles intact. Conjunctivae/corneas clear. Neck: No jugular venous distention. Trachea midline. Respiratory: Normal respiratory effort. 2L NC O2 Musculoskeletal: No clubbing, cyanosis or edema bilaterally. Full ROM of all extremities. Skin: Skin color, texture, turgor normal. Surgical incision with drain c/d/I, mod s/s output Neurologic: Neurovascularly intact without any focal sensory/motor deficits. Cranial nerves: II-XIIintact, grossly non-focal. Psychiatric: Alert and oriented, visibly anxious, does not answer questions appropriately PAGING: The Acute Pain Service providers are available exclusively via [employer]. APS does not utilize pagers. * Tomas Davidson JD, MD - 08/11/2023 9:21 AM EST Orthopaedic Spine Progress Note Name: Alfie Hogan Date of : 1960 Age: 62 y.o. Admission Date/Time: 08/09/2023 7:14 AM Assessment: Alfie Hogan is a 62 y.o. female s/p T11-L3 PSF, L2 lami, JEAN L3-L5 08/08 Plan: -Operative plans: No further plans for surgery this admission -Weight bearing as tolerated -Range of motion parameters: ROM as tolerated -Consults: Internal medicine consult for medical management -Antibiotics: ancef until lumbar drain removed, then home PO duricef for 10 days -Dressings: Keep bandage clean dry and intact for 7-10 days post operatively, then ok to leave opento air if incision is without drainage. -Other: Drain care: ortho team will pull when appropriate. Record output every shift. -Diet: no restrictions from ortho standpoint -Labs: CBC & BMP x 2 days post op -PT/OT -PT recommended outpatient/post discharge?: Yes, for basic ADLs -Medical management, dvt ppx and pain control per primary -DVT ppx recommended?: SCDs and ambulation -Follow-up with Dr Bean in 2 weeks -Ortho primary team. -Dispo: pending drain output and SNF Subjective: Tearful and somewhat confused on why she is here. Gently clarified and encouraged. Objective Most Recent Vitals: Vitals: 08/11/23 0510 08/11/23 0526 08/11/23 0754 08/11/23 0808 BP: 98/60 94/66 96/63 98/76 Pulse: 100 98 99 98 Resp: 16 16 12 16 Temp: 36.4 C (97.6 F) 36.4 C (97.5 F) 36.9 C (98.4 F) 36.6 C (97.8 F) TempSrc: Temporal Temporal Temporal SpO2: 99% 98% 98% Intake/Output last 24 hours: I/O last 3 completed shifts: In: 3950 [P.O.:2350; I.V.:1600] Out: 1860 [Urine:1500; Drains:75] I/O this shift: In: 354 [Blood:354] Out: - Recent Labs 08/11/23 0153 WBC 4.0 HGB 6.5* HCT 21.2* MCV 89.1 Recent Labs 08/11/23 0153 NA 133* K 3.3* CL 102 CO2 27 Gen: No acute distress. Alert and oriented Extremity: Lower Extremity Motor: HF Q TA EHL GSC Right 2 4 5 5 5 Left 4 4 5 5 5 Lower extremity sensation to light touch: L2 L3 L4 L5 S1 Right Intact Intact Intact Intact Intact Left Intact Intact Intact Intact Intact Lower extremity pulses: DP Right 2+ Left 2+ Wound: Dressing CDI. No evidence of hematoma. Drain w/ SS output in canister [75cc] Tomas Davidson MD 08/11/2023 9:21 AM * Shayy Rodriguez RCP - 08/10/2023 9:00 PM EST [facility] Respiratory Care Department Progress Note Comment or reasoning for refusal: Patient was seen in attempts to fulfill CPAP/BiPAP/AutoPAP order. Patient refused PAP therapy/studyat this time. Patient was educated on medical need and reasoning for physician order to ensure patient was making an informed medical decision. All of the patient's questions were answered at this time and patient was informed that if the patient changes their mind regarding wearing PAP to hit their call light or inform their nurse to contact Respiratory. A second, consecutive night of refusing PAP therapy/study results in order completion in the EMR. If future CPAP/BiPAP/AutoPAP therapy or study is indicated please place another order in the EMR and the assigned Respiratory Therapist will reattempt to fulfill orders. Reason for refusal: pt family to bring in machine Thank you for involving Respiratory in the care of this patient, * SUZY Maher CNP - 08/10/2023 3:40 PM EST Refer to today's Consultation Note Brooke Calvillo * Apolinar Yin MD - 08/10/2023 12:42 PM EST Images from the original note were not included. Hospitalist Progress Note 08/10/2023 Assessment/Plan: Data: (CAT1) Reviewed 2 notes from different specialty or health system (each=1). (CAT1) Reviewed 2 labs/studies ordered by another provider not previously counted (each=1, panels count as 1). (LOW: 2x CAT1 or independent historian MOD: 3x CAT1 or 1x CAT3 EXTENSIVE: 3x CAT1 and 1x CAT3) Acute, acute on chronic, unstable/uncontrolled chronic problems/diagnoses: S/p lumbar laminectomy with fusion and allograft on 08/08 Acute anemia Tachycardia Anxiety Stable chronic problems affecting care, new non-acute diagnoses: COPD with chronic respiratory failure, 3 LNC GENNARO on CPAP Pulmonary hypertension HFpEF CKD HTN -No reported bleeding, likely some component of perioperative blood loss -Iron studies -Tachycardia likely related to pain -D-dimer 0.79 -Consider LE duplex or CTA to rule out out if tachycardia does not improve -Continue pain control -Trial hydroxyzine for anxiety -Home Coreg held given borderline BP - PT/OT/CM/SW - delirium precautions: increase activity - DVT prophylaxis: SCDs and encourage ambulation Total time spent (which include face to face and non face to face encounters) : 38 minutes D/W sister at bedside D/W RN Complexity: Acute illness with systemic symptoms (MOD). Multiple stable chronic illnesses (MOD). Risk: Admission to hospital-level care was considered or occurred (HIGH). Advance Directive: No Order Toxic drug monitoring/narrow therapeutic index drug monitoring : # Drug name : # Route administered: # Method of monitoring: Subjective: Admit Date: 08/09/2023 PCP: Bernardino Moran MD Room#: H-6105/H-2012 A Brief Hospital course: Patient is a 62-year-old female with history of COPD on chronic O2, HTN, pulmonary hypertension, diastolic HF, CKD, GENNARO, HLD, anxiety/depression who was admitted for elective lumbar laminectomy with hardware removal, fusion thoracic 11-L3 with allograft Interval History: Patient seen and evaluated at bedside, sister present Patient very uncomfortable this moment, states she is in pain and waiting for pain meds to be given Appears very anxious as well Denies any area of bleeding Adult diet Regular 24HR INTAKE/OUTPUT: Intake/Output Summary (Last 24 hours) at 08/10/2023 1242 Last data filed at 08/10/2023 0356 Gross per 24 hour Intake 700 ml Output 1060 ml Net -360 ml Past Medical History: Past Medical History: Diagnosis Date 2019 novel coronavirus disease (COVID-19) Alcohol dependence with uncomplicated withdrawal (HCC) 07/07/2020 Allergic Anxiety Arthritis Asthma Bronchiectasis (HCC) COPD exacerbation (HCC) 10/24/2019 Depression Diaphragm paralysis Diastolic heart failure (HCC) Dizziness 11/09/2020 Dvt femoral (deep venous thrombosis) (HCC) right...was on blood thinners after broken ankle have been off thinners for a few years Fall 11/21/2020 GERD (gastroesophageal reflux disease) Hypertension Kidney disease Kidney failure 01/09/2019 Kidney stone Obesity Oxygen decrease Currently on Home oxygen, uses with exertion Pulmonary hypertension (HCC) Pulmonary hypertension (HCC) Weakness 11/21/2020 LABS: CBC: Recent Labs 08/10/23 0115 WBC 5.3 RBC 2.75* HGB 7.6* HCT 24.7* MCV 89.8 RDW 14.6 PLT 123* BMP: Recent Labs 08/10/23 0115 NA 132* K 4.1 CL 99 CO2 22 BUN 17 CREATININE 1.20* GLUCOSE 130* CALCIUM 8.4 ANIONGAP 11 LIVER PROFILE:No results for input(s): AST, ALT, BILITOT, ALKPHOS, PROT in the last 72 hours. No lab exists for component: LABALBU PT/INR: Recent Labs 08/10/23 0755 PROTIME 11.0 INR 1.0 CARDIAC ENZYMES: No results for input(s): TROPONINI in the last 72 hours. Procalcitonin: No results found for: PROCAL COVID-19 PCR: No results for input(s): COVID19 in the last 72 hours. Objective: Vitals: BP 101/61 (BP Location: Right arm, Patient Position: Lying) Pulse 104 Temp 36.4 C (97.6F) (Temporal) Resp 20 SpO2 95% Pulse Ox: SpO2 Av.7 % Min: 93 % Max: 100 % Supplemental O2: O2 Flow Rate (L/min): 2 L/min Physical Exam Vitals and nursing note reviewed. Constitutional: Appearance: Normal appearance. She is obese. Cardiovascular: Rate and Rhythm: Normal rate. Pulmonary: Effort: Pulmonary effort is normal. Abdominal: General: Abdomen is flat. Neurological: Mental Status: She is alert. Psychiatric: Mood and Affect: Mood normal. Behavior: Behavior normal. Medications: acetaminophen, 650 mg, Oral, q6h [Held by provider] carvedilol, 3.125 mg, Oral, qPM ceFAZolin, 2,000 mg, IntraVENous, q8h dexAMETHasone, 6 mg, IntraVENous, q6h Lidocaine, 1 patch, Topical, Daily mometasone-formoterol, 2 puff, Inhalation, BID pantoprazole, 40 mg, Oral, q AM rosuvastatin, 40 mg, Oral, Nightly sodium chloride 0.9%, 10 mL, IntraVENous, 2 times per day trospium, 20 mg, Oral, BID No emergency contact information on file. Apolinar Yin MD Division of Hospitalist Medicine [facility] * Rachel Gallardo, PT - 08/10/2023 10:39 AM EST Images from the original note were not included. PHYSICAL THERAPY [facility] Initial Evaluation Name/MRN: Kayce Hogan ([id number]) Evaluation Date: 08/10/2023 Date of : 1960 Admission Date: 08/09/2023 7:14 AM Age: 62 y.o. Room/Bed: 6105/6105 A Discharge Recommendation: Group Home Facility Equipment Needed: No Assessment IMPRESSION: Pt is s/p elective hardware removal and fusion T11-L3 by Dr. Bean. Pt is a poor historian with word finding difficulties and inconsistent reporting noted during subjective assessment. She is primarily limited by pain, decreased safety awareness and appears anxious with mobility tasks requiring increased VC and tactile cues to assist with re-attending pt to task. Pt requiring mod to max A for bed mobility and transfers. She was unable to progress to amb due to dizziness and nausea with standing EOB. Rec SNF due to increased fall risk and deficits noted below. Diagnosis: lumbar radiculopathy Prognosis: good Performance Deficits /Impairments: Increased Pain, Decreased Functional Mobility, Decreased ADL status, Decreased Strength, Decreased Safety Awareness, Decreased Cognition, Decreased Endurance, and Decreased Balance Decision Making: Medium Complexity Subjective Pt reclined in bed with 2 L O2 NC. Sister sleeping on sofa. Pt agreeable to therapy with sister present. Pain: 0-10 pain scale: 5-8/10 Location: back Past Medical History: Past Medical History: Diagnosis Date 2018 novel coronavirus disease (COVID-19) Alcohol dependence with uncomplicated withdrawal ([facility]) 07/07/2020 Allergic Anxiety Arthritis Asthma Bronchiectasis ([facility]) COPD exacerbation ([facility]) 10/24/2019 Depression Diaphragm paralysis Diastolic heart failure ([facility]) Dizziness 11/09/2020 Dvt femoral (deep venous thrombosis) ([facility]) right...was on blood thinners after broken ankle have been off thinners for a few years Fall 11/21/2020 GERD (gastroesophageal reflux disease) Hypertension Kidney disease Kidney failure 01/09/2019 Kidney stone Obesity Oxygen decrease Currently on Home oxygen, uses with exertion Pulmonary hypertension ([facility]) Pulmonary hypertension ([facility]) Weakness 11/21/2020 Past Surgical History: Past Surgical History: Procedure Laterality Date ABDOMINAL SURGERY ADENOIDECTOMY ANKLE SURGERY Right 07/19/2021 APPENDECTOMY 2002 BACK SURGERY CHOLECYSTECTOMY 2004 EXTREMITY SURGERY Left 07/2021 elbow FRACTURE SURGERY HERNIA REPAIR 1972 JOINT REPLACEMENT Bilateral hips LUMBAR DISC SURGERY LUMBAR DISC SURGERY N/A 08/09/2023 REMOVAL HARDWARE LUMBAR 3/4/5, LAMINECTOMY LUMBAR 2, FUSION THORACIC 11-LUMBAR 3, INSTRUMENTATION THORACIC 11-LUMBAR 5, ALLOGRAFT, BONE MORPHOGENETIC PROTEIN TENDON RELEASE Right Right arm TONSILLECTOMY TONSILLECTOMY (HISTORICAL) 1965 TOTAL ABDOMINAL HYSTERECTOMY 2001 Admission Diagnosis: Patient Active Problem List Diagnosis Date Noted Lumbar radiculopathy 08/09/2023 Weakness of both lower extremities 02/15/2023 Ataxia 02/15/2023 Urinary frequency 06/07/2022 Bronchitis 06/07/2022 Hematoma (nontraumatic) of breast 06/07/2022 Nausea 05/15/2022 Dementia 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 ([facility]) 12/06/2021 Other pancytopenia (CMS/HCC) ([facility]) 12/06/2021 Hypertensive heart and chronic kidney disease with heart failure and stage 1 through stage 4 chronic kidney disease, or unspecified chronic kidney disease (HCC) 12/06/2021 Bimalleolar fracture 12/06/2021 Forgetfulness 12/06/2021 Closed fracture of proximal phalanx of toe of left foot 12/06/2021 Personal history of COVID-19 12/06/2021 Postoperative complication 12/06/2021 Subluxation of right ankle joint 12/06/2021 Morbid (severe) obesity due to excess calories ([facility]) 12/06/2021 Ulcerative colitis, unspecified, without complications (HCC) 12/06/2021 Tremor 11/21/2020 Hypokalemia 08/26/2020 Chronic hypoxemic respiratory failure ([facility]) 08/26/2020 GERD (gastroesophageal reflux disease) 08/26/2020 GENNARO (obstructive sleep apnea) 08/26/2020 Essential hypertension 08/26/2020 Hyperlipidemia 08/26/2020 Current moderate episode of major depressive disorder without prior episode ([facility]) 08/26/2020 Anxiety 08/26/2020 Diaphragm dysfunction 07/27/2020 Unspecified mood (affective) disorder ([facility]) 07/09/2020 Edema of lower extremity 05/10/2020 Stage 1 chronic kidney disease 05/10/2020 Dependent edema 2019 Hypoxemia 12/16/2018 Colitis 12/16/2018 Arthropathy of multiple sites 04/12/2018 Asthma 04/12/2018 Chronic insomnia 04/12/2018 Primary osteoarthritis of right hip 04/12/2018 DDD (degenerative disc disease), lumbar 04/12/2018 Lumbar scoliosis 04/12/2018 History of right hip replacement 04/12/2018 Medical Precautions: No active isolations Proper PPE donned/doffed in accordance with facility standards. Fall Risk: [place] Fall Risk Score: 85 (High Risk) Precautions/Restrictions: Other Position/Activity Restriction: ROM as shan, WBAT per chart review, per ortho note no immobilization needed but pt brought brace from home. Lines/Drains/Airways: PIV, compression pumps, 2 L O2 NC, surgical drain Family/Caregiver Present: sibling(s) Overall Cognitive Status: Exceptions - Following commands: follows one step commands with increased time and follows one step commands with repetition - Attention span: difficulty attending to directions - Safety judgement: decreased awareness of need for assistance and decreased awareness of need for safety - Problem solving: assistance required to identify errors made and assistance required to correct errors made - Insights: decreased awareness of deficits - Initiation: requires cues for some - Sequencing: requires cues for some - labile affect Overall Orientation Status: Oriented to Place, Oriented to Time, and Oriented to Person Vision: not assessed this session Hearing: normal Social/Functional History Patient admitted from home. Lives With: Other Type of Home: Pt is poor historian with varying reports of home set up as session progressed. Unable to fully determine if house if 1 level or 2. Pt unable to report who would be staying with her or how many steps to enter. Home Layout: Two Level Home and Able to Live on Main Level Home Access: Stairs to Enter with Rails (# of stairs: ?) Bathroom Shower/Tub: Tub/Shower Combo Toilet: N/A Home Equipment: 4 wheeled walker Homemaking Responsibilities: Needs Assist Receives Help From: Other Active Cleaner Laboratory Equipment: Yes Pt initially reported indep with ADLS, home management and community mobility with multiple fall hx. Later reports requiring assist for all tasks. Prior Level of Function ADL Assistance: Needs Assist Ambulation Assistance: Independent Device(s) used: rollator Transfer Assistance: Independent Objective Lower Extremity Assessment AROM: WFL PROM: Not assessed this session Strength: Exceptions: 10/06 knee ext and DF bilat. Bilat hip flexion grossly assessed 08/06. Hyperkinesia bilat LE. Bed Mobility: Supine to sit: Max Assist Sit to supine: Mod Assist, x2 Person Assist Rolling to left: Mod Assist Scooting: Contact Guard, seated Transfers Sit to stand: Max Assist Stand to sit: Mod Assist animal care technician present to assist. Pt reported nausea sitting EOB. Retro LOB with pt requiring mod A to maintain seated balance. Able to stand at EOB ~ 1 min with mod A. VC to slow respiratory pattern. Dizziness reported with standing. Unable to progress amb at this time. Ambulation Did not assess this session. Balance: Posture: poor Sitting - Static: Contact Guard, Mod Assist Sitting - Dynamic: Supervision, Mod Assist Standing - Static: Mod Assist Standing - Dynamic: NT Outcome Measures AM-PAC How much HELP from another person do you currently need Turning from your back to your side while in a flat bed without using bedrails?: A Lot Moving from lying on your back to sitting on the side of a flat bed without using bedrails?: A Lot Moving to and from a bed to a chair (including a wheelchair)?: A Lot Standing up from a chair using your arms (wheelchair or bedside chair)?: A Lot Walking in a hospital room?: A Lot Stair climbing assessed?: No AM-PAC Inpatient Mobility Raw Score (No Stairs) : 10 [facility] Score: Static standing (1 or more minutes) Plan Pt would benefit from skilled acute PT services to address Strengthening, ROM, Balance Training, Functional Mobility Training, Gait Training, Pain Management, Safety Education and Training, Patient/Caregiver Training, Equipment Evaluation/Education, and Positioning. Frequency: 5-7x/week for 2 weeks Barriers: Pain, Confusion, Cognitive deficit, Limited safety awareness, and Anxiety Safety/Education Safety Safety Devices in place: call light within reach, left in bed, bed alarm in place, gait belt, patient at risk for falls, nurse notified, and no alarms engaged upon entry Restraints: N/A Education Education Given To: patient and sister Education Provided: PT Role, Plan of Care, Transfer Training, and Discharge Recommendations Education Method: Verbal Barriers to Learning: Cognition, anxiety Education Outcome: Continued Education Needed Goals Patient Stated Goal: none stated Encounter Problems Encounter Problems (Active) Balance Patient will maintain static standing balance for 2-3 minutes with supervision in order to demonstrate decreased risk of falling. Start: 08/10/23 Expected End: 08/24/23 Patient will maintain static sitting balance for 2-3 minutes with supervision in order to demonstrate improved postural control and prepare for out of bed mobility. Start: 08/10/23 Expected End: 08/24/23 Mobility Patient will ambulate 50 feet with min assist and rolling walker in order to improve safety and independence with mobility. Start: 08/10/23 Expected End: 08/24/23 Pain - Adult Transfers Patient will perform bed mobility with min assist in order to improve independence and prepare for out of bed mobility. Start: 08/10/23 Expected End: 08/24/23 Patient will complete sit to stand transfer with CGA to wheeled walker in order to improve safety and prepare for out of bed mobility. Start: 08/10/23 Expected End: 08/24/23 Therapy Time Individual Co-treatment Time In 48 Time Out 1031 Minutes 43 Timed Code Treatment Minutes: 15 Minutes (FA) Rachel Gallardo PT Patient's Physical Therapy Plan of Care supervision is transferred to a [facility] Therapy Services Physical Therapist. Goals and/or treatment plan was established in collaboration with patient/family/other representatives. * Samantha Oliver MD - 08/10/2023 6:17 AM EST Orthopaedic Spine Progress Note Name: Alfie Hogan Date of : 1960 Age: 62 y.o. Admission Date/Time: 08/09/2023 7:14 AM Assessment: Alfie Hogan is a 62 y.o. female s/p T11-L3 PSF, L2 lami, JEAN L3-L5 08/08 Plan: -Operative plans: No further plans for surgery this admission -Weight bearing: RLE: WBAT LLE: WBAT RUE: WBAT LUE: WBAT -Range of motion parameters: ROM as tolerated -Immobilization: No immobilization needed -Consults: Internal medicine consult for medical management -Antibiotics: ancef until lumbar drain removed, then home PO duricef for 10 days -Dressings: Keep bandage clean dry and intact for 7-10 days post operatively, then ok to leave opento air if incision is without drainage. -Other: Drain care: ortho team will pull when appropriate. Record output every shift. -Diet: no restrictions from ortho standpoint -Labs: CBC & BMP x 2 days post op -PT/OT -PT recommended outpatient/post discharge?: Yes, for basic ADLs -Medical management, dvt ppx and pain control per primary -DVT ppx recommended?: SCDs and ambulation -Follow-up with Dr Bean in 2 weeks -Ortho primary team. Dispo: pending Subjective: Patient reports back pain misti-incisional he. She denies new numbness and tingling in bilateral lower extremities. She states that her prior numbness and pain to her bilateral lower extremities has slightly improved since surgery. She denies fever, chills, shortness of breath. She is tolerating diet. Objective Most Recent Vitals: Vitals: 08/10/23 0048 08/10/23 0051 08/10/23 0508 08/10/23 0800 BP: (!) 84/66 108/60 98/78 101/61 BP Location: Right arm Right arm Right arm Patient Position: Sitting Sitting Lying Pulse: 104 111 111 104 Resp: 20 Temp: 36.6 C (97.8 F) 36.7 C (98 F) 36.4 C (97.6 F) TempSrc: Temporal Temporal Temporal SpO2: 94% 96% 95% Intake/Output last 24 hours: I/O last 3 completed shifts: In: 1700 [P.O.:500; I.V.:1200] Out: 1060 [Urine:300; Blood:200] No intake/output data recorded. Recent Labs 08/10/23 0115 WBC 5.3 HGB 7.6* HCT 24.7* MCV 89.8 Recent Labs 08/10/23 0115 NA 132* K 4.1 CL 99 CO2 22 Gen: No acute distress. Alert and oriented Neck: supple Chest: Normal respiratory effort. Unlabored breathing Heart:: Regular rate Abd: Soft, non-tender, non-distended Extremity: Lower Extremity Motor: HF Q TA EHL GSC Right 3 4 5 5 5 Left 4 4 5 5 5 Lower extremity sensation to light touch: L2 L3 L4 L5 S1 Right Intact Intact Intact Intact Intact Left Intact Intact Intact Intact Intact Lower extremity pulses: DP PT Right 2+ 2+ Left 2+ 2+ Wound: Dressing CDI. No evidence of hematoma. Drain w/ SS output in canister Samantha Oliver MD 08/10/2023 11:47 AM documented in this [facility]03-11-2024 Note* Care Coordination - BERNIE Silverio - 08/13/2023 3:20 PM EDT Transport arranged for 1999 today to transfer pt to [facility]. RNUS, TCC, pt and [facility] notified. [id number] Note* Care Coordination - BERNIE Silverio - 08/13/2023 3:20 PM EDT Transport arranged for 1999 today to transfer pt to [facility]. US SIMON, TCC, pt and [facility] notified. [facility] [id number] Miscellaneous Notes* Care Coordination - BERNIE Silverio - 08/13/2023 3:20 PM EDT Transport arranged for 1999 to transfer pt to [facility]. RN, US, TCC, pt and [facility] notified. * Care Coordination - Unknown Case Management - 08/13/2023 3:19 PM EDT Patient Choice Patient Name: ALFIE HOGAN Date of : 1960 All Providers Sent Referral Name: [facility] Phone: [phone] Address: [address] [place] [address] Name: [facility] Phone: [phone] Address: [address] [place] [address] * Care Coordination - Logan Maurer - 08/13/2023 10:43 AM EDT Updates placed to [facility] via [facility] per TCC request. Await review and response regarding ability to accept. TCC notified. * Care Coordination - Bre Parikh RN - 08/13/2023 7:51 AM EDT Images from the original note were not included. Care Management Progress Note Patient remains on H6 s/p removal of hardware lami fusion 08/09/2023. Reg diet noted. PT/OT following, recommending snf. Hgb 7.8, trending. Discharge plan is [facility]. TCC to assist and follow as needed. Discharge Milestones and Delays Expected Date/Time: 08/13/2023 Disposition: Group Home Facility Transport status: No current request Discharge Milestones Place discharge order Complete med reconciliation Case mgmt discharge readiness Clinical Stability Diagnsotic Workup Expected Discharge History Expected Date/Time Set By Reviewed At 08/13/2023 Bre Parikh RN 08/13/2023 7:49 AM 08/11/2023 Tomas Davidson JD, MD 08/12/2023 11:45 AM 08/11/2023 Bre Parikh RN 08/10/2023 12:52 PM 08/11/2023 Bre Parikh RN 08/10/2023 7:47 AM 08/10/2023 Caroline Downey MD 08/09/2023 4:58 PM 08/10/2023 Caroline Downey MD 08/09/2023 8:15 AM Length of Stay (Days): 4 GMLOS: No GMLOS Documented * Care Plan - Gisela Lucas RN - 08/13/2023 5:06 AM EDT Problem: Pain - Adult Goal: Verbalizes/displays adequate comfort level or baseline comfort level Outcome: Progressing Problem: Chronic Conditions and Co-morbidities Goal: Patient's chronic conditions and co-morbidity symptoms are monitored and maintained or improved Outcome: Progressing Problem: Knowledge Deficit Goal: Patient/family/caregiver demonstrates understanding of disease process, treatment plan, medications, and discharge instructions Outcome: Progressing Problem: Potential for Compromised Skin Integrity Goal: Skin Integrity is Maintained or Improved Outcome: Progressing Goal: Nutritional status is improving Outcome: Progressing Problem: Urinary Incontinence Goal: Perineal skin integrity is maintained or improved Outcome: Progressing * Care Coordination - Johanna Carty RN - 08/12/2023 8:41 AM EDT TCC tasked to follow over the weekend. Auth remains pending. TCC to continue to follow and assist prn. * Care Plan - Gisela Lucas RN - 08/12/2023 5:41 AM EDT Problem: Pain - Adult Goal: Verbalizes/displays adequate comfort level or baseline comfort level Outcome: Progressing Problem: Chronic Conditions and Co-morbidities Goal: Patient's chronic conditions and co-morbidity symptoms are monitored and maintained or improved Outcome: Progressing * Care Coordination - Johanna Carty RN - 08/11/2023 9:34 AM EST TCC tasked to follow this patient over the weekend. Auth started at [email or web address]. Message sent to facility regarding auth status. Awaiting response. TCC to continue to follow. * Care Coordination - Bre Parikh RN - 08/10/2023 2:43 PM EST [facility] is able to accept patient, auth started. Weekend TCC tasked to follow. TCCto assist and follow as needed. * Care Coordination - Bre Parikh RN - 08/10/2023 12:52 PM EST Care Managment Initial Assessment Date: 08/10/2023 Patient Name: Alfie Hogan : 1960 Patient Information Source of Information: Patient Cognition/Language: WFL - Within Functional Limits Permission given to speak with patient medical field representative/caregiver as indicated: Yes Confirmation of Payer with patient/family: Yes Payer Name: [facility] Dual Complete : No Confirmation of Primary Care Physician: Confirmed PCP Name: Dr. Velasquez Seen in last 2 years?: Yes Primary Caregiver: Self If assistance needed, confirmed caregiver ready, willing and able to care for patient at discharge:Yes Confirmed with: Carlita Palencia-sister Living Arrangements Current Residence: House Number of Floors 1 Number of Entry Steps: 2 Bed/Bath Levels: Both first floor Facility: Facility Name: Plan to Return: Lives with: (ex ) Support Systems: Family members Activities of Daily Living Ambulation: Independent Bathing/Dressing: Independent Elimination/Continence/Toileting: Independent Feeding: Independent Who Assists with Activities of Daily Living: Instrumental Activities of Daily Living Prescription Coverage: Yes Pharmacy Used: [facility] Medication Management: Independent Transportation/Shopping: Independent Transportation Mode: Car Needs Assistance with Transportation at Discharge: No Meal Preparation: Independent Laundry/Cleaning: Independent Finances/Bill Paying: Independent Communication: Independent Types of Care Services/Equipment Utilized Care Services: Dialysis Type: Durable Medical Equipment: Patient's Goal/Discharge Plan Patient expects to be discharged to: SNF Discharge Planning Actions: Group Home Facility referral indicated, Continue to follow Gates of choice: Gates of choice discussed Patient's Choice Rights and [employer] and Collaborative Relationships Disclosed as Indicated for Post-Acute Care: Yes Interdisciplinary Team Engagement: PT/OT Social Work Referral for: Additional Information: Patient admitted to H6 s/p removal of hardware lami fusion 08/09/2023. Reg diet noted. PT/OT eval noted. PT recommending snf. Met with pt at bedside, introduced self and explained role of TCC. Pt has insurance with RX coverage, active with PCP.Sister is in the room with patient, added as contact. Patient lives with ex- . Patient wants to go to a snf, first choice [facility] and [facility] NUCLEAR OPERATIONS SPECIALIST tasked to make referrals. Patient is tearful throughout visit. Discharge plan is snf. TCC to assist and follow as needed. '' Bre Parikh RN * Care Coordination - Logan Maurer - 08/10/2023 11:25 AM EST Referral placed to [facility] per TCC request. Await review and response regarding ability to accept. TCC notified. * Op Note - Brandon Bean MD - 08/09/2023 9:44 AM EST OPERATIVE NOTE Patient Name: Alfie Hogan : 1960 DATE OF PROCEDURE: 08/09/2023 SURGEON: BRANDON BEAN MD PREOPERATIVE DIAGNOSES: Status postlaminectomy and fusion, stenosis, scoliosis POSTOPERATIVE DIAGNOSES: Same PROCEDURE: Removal hardware L3-4-5 inspection fusion mass L3-4-5 requiring no repeat fusion laminectomy L2 fusion T11-T12 L1-L2-L3 instrumentation T11-L4 allograft bone nonstructural use of IntraOp O-arm Stealth navigation for insertion of hardware morbid obesity. This person has a BMI greater than40 this doubling to tripled in the length of the time of hardware potentially increasing risk potentially decreasing outcomes INDICATION FOR PROCEDURE: Status post surgery junctional level breakdown and stenosis scoliosis DESCRIPTION OF PROCEDURE: Patient was taken the operating room timeout was done for patient procedure. It should be noted this was a revision surgery so we had to dissect through the old incision we had to dissect through between skin scar fat and scar there was her previous fusion mass which is very robust we had to dissect that out we did take part of that Part of the fusion down remove the hardware thus doubling with the time of surgery potentially increasing risk potentially decreasing outcomes and the use of the Stealth O-arm hide to be used for insertion of hardware due to this. Should be noted this patient has a BMI greater than 40 at double the length to tripled the length of time with surgery potentially increasing risk potentially decreasing outcomes reduce after people to flip prepped and draped in head pad extra body parts made using Ochoa table it is used extra long instruments as well for this Skin incision was made through the old incision recently that incision cephalad.. We dissected downto the copious adipose tissue to the hardware we dissected the hardware out of L3 L4-5 inspected the fusion mass there was noted to be very solid. We did take some of the fusion down superiorly off the screw heads. We removed the hardware en bloc. We further inspected the fusion mass noted to be very solid. We dissected out to L1 T12 and T11 including the bilateral transverse processes at L1 and L2 and will and the fusion mass at L3. Laminectomy was carried out at L2 with bur rongeur and Kerrisons bilateral foraminotomies L2-3 carried out Kerrisons. This decompressing the bilateral exiting L1aeuxo roots which were free. At this point in time a spinous process clamp was put on the spinous process of T12 and IntraOp CAT scan was taken. Once this was done we identified the appropriate levels. The IntraOp CAT scan was coordinated with the IntraOp Stealth system. Instruments were calibratedwith the Stealth system. This point in time with the O-arm Stealth system bilateral pedicle screws were put in at T11 T12-L1 and L2 with the use of a bur followed by the Stealth instruments to make the pedicle hole, tapped the pedicle hole, inserted appropriate size screw. We reinserted screws at L3 and L4. All screws were appropriate. All screws tested negative an EMG. Rods were cut contoured and assembled between the screws and final tightening carried out we decorticated the lamina of T11 T12-L1 the transverse processes of L1-L2 and the superior part of the fusion mass at L3 and L4. We packed this area with his copious amount of allograft bone nonstructural. Previous to this wound irrigated drain was placed sewn in vancomycin powder put in the wound this accomplished the fusion of T11-T 12 L1-L2-L3 instrumentation T11-T12 L1-L2-L3 and L4. Muscle and deep fascia was closed with 1 Vicryl copious amount of 0 Vicryl sutures were used in the adipose tissue. 2 oh subcu. Dermabond and soha for skin. End of dictation documented in this [facility]03-11-2024 Note* Care Coordination - Unknown Case Management - 08/13/2023 3:19 PM EDT Patient Choice Patient Name: ALFIE HOGAN Date of : 1960 All Providers Sent Referral Name: [facility] Phone: [phone] Address: [address] [place] [address] Name: [facility] Phone: [phone] Address: [address] [place] [address] [place] [id number] Note* Care Coordination - Unknown Case Management - 08/13/2023 3:19 PM EDT Patient Choice Patient Name: ALFIE HOGAN Date of : 1960 All Providers Sent Referral Name: [facility] Phone: [phone] Address: [address] [place] [address] Name: [facility] Phone: [phone] Address: [address] [place] [address] [place] [id number] NoteOrthopaedic Spine Progress Note Name: Alfie Hogan Date of : 1960 Age: 62 y.o. Admission Date/Time: 08/09/2023 7:14 AM Assessment: Alfie Hogan is a 62 y.o. female s/p T11-L3 PSF, L2 lami, JEAN L3-L5 08/08 Plan: -Operative plans: No further plans for surgery this admission -Weight bearing as tolerated -Range of motion parameters: ROM as tolerated -Consults: Internal medicine consult for medical management -Antibiotics: home PO duricef for 10 days -Dressings: Keep bandage clean dry and intact for 7-10 days post operatively, then ok to leave open to air if incision is without drainage. -Diet: no restrictions from ortho standpoint -Labs: CBC & BMP x 2 days post op -hgb stable 7.8 this morning -PT/OT -PT recommended outpatient/post discharge?: Yes, for basic ADLs -Medical management, dvt ppx and pain control per primary -DVT ppx recommended?: SCDs and ambulation -Follow-up with Dr Bean in 2 weeks -Ortho primary team. -Dispo: SNF p Subjective: Doing better today. Discussed waiting for rehab. Sitting up on the side of bed. Spoke to patient about updating Dr. Bean and she will see him outpatient. Denies fever, chills, and SOB and states she feels a little better each day Objective Most Recent Vitals: Vitals: 08/12/23 0815 08/12/23 1922 08/12/23 2232 08/13/23 0829 BP: 121/77 130/84 105/73 BP Location: Right arm Right arm Right arm Patient Position: Lying Lying Pulse: 104 112 108 116 Resp: 16 16 14 Temp: 37.2 ?C (98.9 ?F) 37.4 ?C (99.4 ?F) 37 ?C (98.6 ?F) TempSrc: Temporal Temporal SpO2: 98% 92% 95% 97% Intake/Output last 24 hours: I/O last 3 completed shifts: In: 150 [P.O.:150] Out: 700 [Urine:700] No intake/output data recorded. Recent Labs 08/12/23 035 WBC 3.4* HGB 7.8* HCT 24.9* MCV 88.6 Recent Labs 08/12/23 0357 NA 135 K 3.4* CL 106 CO2 25 Gen: No acute distress. Alert and oriented Extremity: Lower Extremity Motor: HF Q TA EHL GSC Right 4- 4 5 4 5 Left 4- 4 5 4 5 Lower extremity sensation to light touch: L2 L3 L4 L5 S1 Right Intact Intact Intact Intact Intact Left Intact Intact Intact Intact Intact Lower extremity pulses: DP Right 2+ Left 2+ Wound: Dressing CDI. No evidence of hematoma. Samantha Oliver MD 08/13/2023 2:30 [facility]03-11-2024 NoteHospitalist Progress Note 08/13/2023 Assessment/Plan: Data: (CAT1) Reviewed 2 notes from different specialty or health system (each=1). (CAT1) Reviewed 2 labs/studies ordered by another provider not previously counted (each=1, panels count as 1). (LOW: 2x CAT1 or independent historian MOD: 3x CAT1 or 1x CAT3 EXTENSIVE: 3x CAT1 and 1x CAT3) Acute, acute on chronic, unstable/uncontrolled chronic problems/diagnoses: S/p lumbar laminectomy with fusion and allograft on 08/08 Acute anemia Thrombocytopenia Tachycardia Anxiety, anxiousness, tearfulness Confusion, likely delirium Hypokalemia-replace Low TSH, normal free T4 Stable chronic problems affecting care, new non-acute diagnoses: COPD with chronic respiratory failure, 3 LNC GENNARO on CPAP Pulmonary hypertension HFpEF CKD HTN -No reported bleeding, likely some component of perioperative blood loss -S/p 2U PRBC this admission -Thrombocytopenia in the setting of pain, surgery, steroids. Did not receive heparin products. No active bleeding. Trend -Tachycardia likely related to pain -D-dimer 0.79 -LE duplex negative for DVT -Check VQ scan: negative -Confusion likely delirium related to pain meds, anxiety meds, benzo withdrawal, postop pain, anemia, borderline BP -Continue pain meds and anxiety meds as needed, but judicial use -Appreciate psychiatry: Home Restoril started at decreased dose of 50 mg nightly. As needed Ativan added as well to avoid benzo withdrawal -Home Coreg held given borderline BP - PT/OT/CM/SW - delirium precautions: increase activity - DVT prophylaxis: SCDs and encourage ambulation Total time spent (which include face to face and non face to face encounters) : 36 minutes D/W RN Complexity: Acute illness with systemic symptoms (MOD). Multiple stable chronic illnesses (MOD). Risk: Admission to hospital-level care was considered or occurred (HIGH). Advance Directive: No Order Toxic drug monitoring/narrow therapeutic index drug monitoring : # Drug name : # Route administered: # Method of monitoring: Subjective: Admit Date: 08/09/2023 PCP: Bernardino Moran MD Room#: [id number] A Brief Hospital course: Patient is a 62-year-old female with history of COPD on chronic O2, HTN, pulmonary hypertension, diastolic HF, CKD, GENNARO, HLD, anxiety/depression who was admitted for elective lumbar laminectomy with hardware removal, fusion thoracic 11-L3 with allograft Interval History: Seen this morning heart rate 116 LE duplex was negative for DVT yesterday Patient is alert and oriented x 3, but tends to ask same repetitive questions Continues to be tearful and anxious Adult diet Regular 24HR INTAKE/OUTPUT: Intake/Output Summary (Last 24 hours) at 08/13/2023 1238 Last data filed at 08/12/2023 1922 Gross per 24 hour Intake 150 ml Output -- Net 150 ml Past Medical History: Past Medical History: Diagnosis Date 2019 novel coronavirus disease (COVID-19) Alcohol dependence with uncomplicated withdrawal (HCC) 07/07/2020 Allergic Anxiety Arthritis Asthma Bronchiectasis (HCC) COPD exacerbation (HCC) 10/24/2019 Depression Diaphragm paralysis Diastolic heart failure (HCC) Dizziness 11/09/2020 Dvt femoral (deep venous thrombosis) (HCC) right...was on blood thinners after broken ankle have been off thinners for a few years Fall 11/21/2020 GERD (gastroesophageal reflux disease) Hypertension Kidney disease Kidney failure 01/09/2019 Kidney stone Obesity Oxygen decrease Currently on Home oxygen, uses with exertion Pulmonary hypertension (HCC) Pulmonary hypertension (HCC) Weakness 11/21/2020 LABS: CBC: Recent Labs 08/11/23 0153 08/11/23 0958 08/11/23 1553 08/12/23 0357 WBC 4.0 -- -- 3.4* RBC 2.38* -- -- 2.81* HGB 6.5* 6.9* 7.9* 7.8* HCT 21.2* 22.4* 24.8* 24.9* MCV 89.1 -- -- 88.6 RDW 14.8 -- -- 16.0* PLT 116* -- -- 87* BMP: Recent Labs 08/11/23 0153 08/12/23 0357 NA 133* 135 K 3.3* 3.4* CL 102 106 CO2 27 25 BUN 21* 17 CREATININE 1.20* 1.12* GLUCOSE 114* 106* CALCIUM 8.4 8.2* ANIONGAP 4 5 LIVER PROFILE:No results for input(s): AST, ALT, BILITOT, ALKPHOS, PROT in the last 72 hours. No lab exists for component: LABALBU PT/INR: No results for input(s): PROTIME, INR in the last 72 hours. CARDIAC ENZYMES: No results for input(s): TROPONINI in the last 72 hours. Procalcitonin: No results found for: PROCAL COVID-19 PCR: No results for input(s): COVID19 in the last 72 hours. Objective: Vitals: BP 105/73 (BP Location: Right arm, Patient Position: Lying) Pulse 116 Temp 37 ?C (98.6 ?F) Resp 14 SpO2 97% Pulse Ox: SpO2 Av.7 % Min: 92 % Max: 97 % Supplemental O2: O2 Flow Rate (L/min): 2 L/min Physical Exam Vitals and nursing note reviewed. Constitutional: Appearance: Normal appearance. She is obese. Cardiovascular: Rate and Rhythm: Normal rate. Pulmonary: (more content not included)...[facility]03-11-2024 Note* Care Coordination - Logan Maurer - 08/13/2023 10:43 AM EDT Updates placed to [facility] via [facility] per TCC request. Await review and response regarding ability to accept. TCC notified. [facility] [id number] Note* Care Coordination - Logan Maurer - 08/13/2023 10:43 AM EDT Updates placed to [facility] via [facility] per TCC request. Await review and response regarding ability to accept. TCC notified. [place] [id number] Note* Care Coordination - Bre Parikh RN - 08/13/2023 7:51 AM EDT Images from the original note were not included. Care Management Progress Note Patient remains on H6 s/p removal of hardware lami fusion 08/09/2023. Reg diet noted. PT/OT following, recommending snf. Hgb 7.8, trending. Discharge plan is [facility]. TCC to assist and follow as needed. Discharge Milestones and Delays Expected Date/Time: 08/13/2023 Disposition: Group Home Facility Transport status: No current request Discharge Milestones Place discharge order Complete med reconciliation Case mgmt discharge readiness Clinical Stability Diagnsotic Workup Expected Discharge History Expected Date/Time Set By Reviewed At 08/13/2023 Bre Parikh RN 08/13/2023 7:49 AM 08/11/2023 Tomas Davidson JD, MD 08/12/2023 11:45 AM 08/11/2023 Bre Parikh RN 08/10/2023 12:52 PM 08/11/2023 Bre Parikh RN 08/10/2023 7:47 AM 08/10/2023 Caroline Downey MD 08/09/2023 4:58 PM 08/10/2023 Caroline Downey MD 08/09/2023 8:15 AM Length of Stay (Days): 4 GMLOS: No GMLOS Documented [facility] [id number] Note* Care Coordination - Bre Parikh RN - 08/13/2023 7:51 AM EDT Images from the original note were not included. Care Management Progress Note Patient remains on H6 s/p removal of hardware lami fusion 08/09/2023. Reg diet noted. PT/OT following, recommending snf. Hgb 7.8, trending. Discharge plan is [facility]. TCC to assist and follow as needed. Discharge Milestones and Delays Expected Date/Time: 08/13/2023 Disposition: Group Home Facility Transport status: No current request Discharge Milestones Place discharge order Complete med reconciliation Case mgmt discharge readiness Clinical Stability Diagnsotic Workup Expected Discharge History Expected Date/Time Set By Reviewed At 08/13/2023 Bre Parikh RN 08/13/2023 7:49 AM 08/11/2023 Tomas Davidson JD, MD 08/12/2023 11:45 AM 08/11/2023 Bre Parikh RN 08/10/2023 12:52 PM 08/11/2023 Bre Parikh RN 08/10/2023 7:47 AM 08/10/2023 Caroline Downey MD 08/09/2023 4:58 PM 08/10/2023 Caroline Downey MD 08/09/2023 8:15 AM Length of Stay (Days): 4 GMLOS: No GMLOS Documented [facility] [id number] NoteCare Management Progress Note Patient remains on H6 s/p removal of hardware lami fusion 08/09/2023. Reg diet noted. PT/OT following, recommending snf. Hgb 7.8, trending. Discharge plan is [facility]. TCC to assist and follow as needed. Discharge Milestones and Delays Expected Date/Time: 08/13/2023 Disposition: Group Home Facility Transport status: No current request Discharge Milestones Place discharge order Complete med reconciliation Case mgmt discharge readiness Clinical Stability Diagnsotic Workup Expected Discharge History Expected Date/Time Set By Reviewed At 08/13/2023 Bre Parikh RN 08/13/2023 7:49 AM 08/11/2023 Tomas Davidson JD, MD 08/12/2023 11:45 AM 08/11/2023 Bre Parikh RN 08/10/2023 12:52 PM 08/11/2023 Bre Parikh RN 08/10/2023 7:47 AM 08/10/2023 Caroline Downey MD 08/09/2023 4:58 PM 08/10/2023 Caroline Downey MD 08/09/2023 8:15 AM Length of Stay (Days): 4 GMLOS: [id number] Plan of care note* Care Plan - Gisela Lucas RN - 08/13/2023 5:06 AM EDT Problem: Pain - Adult Goal: Verbalizes/displays adequate comfort level or baseline comfort level Outcome: Progressing Problem: Chronic Conditions and Co-morbidities Goal: Patient's chronic conditions and co-morbidity symptoms are monitored and maintained or improved Outcome: Progressing Problem: Knowledge Deficit Goal: Patient/family/caregiver demonstrates understanding of disease process, treatment plan, medications, and discharge instructions Outcome: Progressing Problem: Potential for Compromised Skin Integrity Goal: Skin Integrity is Maintained or Improved Outcome: Progressing Goal: Nutritional status is improving Outcome: Progressing Problem: Urinary Incontinence Goal: Perineal skin integrity is maintained or improved Outcome: Progressing [id number] NoteHospitalist Progress Note 08/12/2023 Assessment/Plan: Data: (CAT1) Reviewed 2 notes from different specialty or health system (each=1). (CAT1) Reviewed 2 labs/studies ordered by another provider not previously counted (each=1, panels count as 1). (LOW: 2x CAT1 or independent historian MOD: 3x CAT1 or 1x CAT3 EXTENSIVE: 3x CAT1 and 1x CAT3) Acute, acute on chronic, unstable/uncontrolled chronic problems/diagnoses: S/p lumbar laminectomy with fusion and allograft on 08/08 Acute anemia Thrombocytopenia Tachycardia Anxiety Confusion, likely delirium Hypokalemia-replace Low TSH, normal free T4 Stable chronic problems affecting care, new non-acute diagnoses: COPD with chronic respiratory failure, 3 LNC GENNARO on CPAP Pulmonary hypertension HFpEF CKD HTN -No reported bleeding, likely some component of perioperative blood loss -S/p 2U PRBC -Thrombocytopenia in the setting of pain, surgery, steroids. Did not receive heparin products. No active bleeding. Trend -Tachycardia likely related to pain -D-dimer 0.79 -Check LE duplex -Consider CTA -Confusion likely delirium related to pain meds, anxiety meds, significant pain yesterday, anemia, borderline BP -Continue pain meds and anxiety meds as needed, but judicial use -Home Coreg held given borderline BP - PT/OT/CM/SW - delirium precautions: increase activity - DVT prophylaxis: SCDs and encourage ambulation Total time spent (which include face to face and non face to face encounters) : 36 minutes Complexity: Acute illness with systemic symptoms (MOD). Multiple stable chronic illnesses (MOD). Risk: Admission to hospital-level care was considered or occurred (HIGH). Advance Directive: No Order Toxic drug monitoring/narrow therapeutic index drug monitoring : # Drug name : # Route administered: # Method of monitoring: Subjective: Admit Date: 08/09/2023 PCP: Bernardino Moran MD Room#: H-6105/H-6105 A Brief Hospital course: Patient is a 62-year-old female with history of COPD on chronic O2, HTN, pulmonary hypertension, diastolic HF, CKD, GENNARO, HLD, anxiety/depression who was admitted for elective lumbar laminectomy with hardware removal, fusion thoracic 11-L3 with allograft Interval History: Still with some tachycardia, BP on lower end but stable Slightly disoriented on my Evaluation today Hemoglobin stable. Platelets decreasing Adult diet Regular 24HR INTAKE/OUTPUT: Intake/Output Summary (Last 24 hours) at 08/12/2023 1324 Last data filed at 08/12/2023 0412 Gross per 24 hour Intake 309 ml Output 1700 ml Net -1391 ml Past Medical History: Past Medical History: Diagnosis Date 2019 novel coronavirus disease (COVID-19) Alcohol dependence with uncomplicated withdrawal (HCC) 07/07/2020 Allergic Anxiety Arthritis Asthma Bronchiectasis (HCC) COPD exacerbation (HCC) 10/24/2019 Depression Diaphragm paralysis Diastolic heart failure (HCC) Dizziness 11/09/2020 Dvt femoral (deep venous thrombosis) (HCC) right...was on blood thinners after broken ankle have been off thinners for a few years Fall 11/21/2020 GERD (gastroesophageal reflux disease) Hypertension Kidney disease Kidney failure 01/09/2019 Kidney stone Obesity Oxygen decrease Currently on Home oxygen, uses with exertion Pulmonary hypertension (HCC) Pulmonary hypertension (HCC) Weakness 11/21/2020 LABS: CBC: Recent Labs 08/10/23 0115 08/11/23 0153 08/11/23 0958 08/11/23 1553 08/12/23 0357 WBC 5.3 4.0 -- -- 3.4* RBC 2.75* 2.38* -- -- 2.81* HGB 7.6* 6.5* 6.9* 7.9* 7.8* HCT 24.7* 21.2* 22.4* 24.8* 24.9* MCV 89.8 89.1 -- -- 88.6 RDW 14.6 14.8 -- -- 16.0* PLT 123* 116* -- -- 87* BMP: Recent Labs 08/10/23 0115 08/11/23 0153 08/12/23 0357 NA 132* 133* 135 K 4.1 3.3* 3.4* CL 99 102 106 CO2 22 27 25 BUN 17 21* 17 CREATININE 1.20* 1.20* 1.12* GLUCOSE 130* 114* 106* CALCIUM 8.4 8.4 8.2* ANIONGAP 11 4 5 LIVER PROFILE:No results for input(s): AST, ALT, BILITOT, ALKPHOS, PROT in the last 72 hours. No lab exists for component: LABALBU PT/INR: Recent Labs 08/10/23 0755 PROTIME 11.0 INR 1.0 CARDIAC ENZYMES: No results for input(s): TROPONINI in the last 72 hours. Procalcitonin: No results found for: PROCAL COVID-19 PCR: No results for input(s): COVID19 in the last 72 hours. Objective: Vitals: BP 121/77 (BP Location: Right arm, Patient Position: Lying) Pulse 104 Temp 37.2 ?C (98.9 ?F) (Temporal) Resp 16 SpO2 98% Pulse Ox: SpO2 Av % Min: 98 % Max: 100 % Supplemental O2: O2 Flow Rate (L/min): 2 L/min Physical Exam Vitals and nursing note reviewed. Constitutional: Appearance: Normal appearance. She is obese. Cardiovascular: Rate and Rhythm: Normal rate. Pulmonary: Effort: Pulmonary effort is normal. Abdominal: General: Abdomen is flat. Neurological: Mental Status: She is alert. Psychiatric: Mood and Aff (more content not included)...[facility] [id number] NoteOrthopaedic Spine Progress Note Name: Alfie Hogan Date of : 1960 Age: 62 y.o. Admission Date/Time: 08/09/2023 7:14 AM Assessment: Alfie Hogan is a 62 y.o. female s/p T11-L3 PSF, L2 lami, JEAN L3-L5 08/08 Plan: -Operative plans: No further plans for surgery this admission -Weight bearing as tolerated -Range of motion parameters: ROM as tolerated -Consults: Internal medicine consult for medical management -Antibiotics: home PO duricef for 10 days -Dressings: Keep bandage clean dry and intact for 7-10 days post operatively, then ok to leave open to air if incision is without drainage. -Diet: no restrictions from ortho standpoint -Labs: CBC & BMP x 2 days post op -hgb stable 7.8 this morning -PT/OT -PT recommended outpatient/post discharge?: Yes, for basic ADLs -Medical management, dvt ppx and pain control per primary -DVT ppx recommended?: SCDs and ambulation -Follow-up with Dr Bean in 2 weeks -Ortho primary team. -Dispo: SNF p Subjective: Doing better today. Discussed waiting for rehab. Objective Most Recent Vitals: Vitals: 08/11/23 1220 08/11/23 1446 08/11/23201408/12/23 0815 BP: (!) 90/58 94/60 92/62 121/77 BP Location: Right arm Right arm Patient Position: Lying Lying Pulse: 99 97 102 104 Resp: 16 16 16 Temp: 36.6 ?C (97.8 ?F) 36.6 ?C (97.8 ?F) 36.7 ?C (98 ?F) 37.2 ?C (98.9 ?F) TempSrc: Temporal Temporal Temporal Temporal SpO2: 100% 100% 99% 98% Intake/Output last 24 hours: I/O last 3 completed shifts: In: 663 [Blood:663] Out: 2875 [Urine:2800; Drains:75] No intake/output data recorded. Recent Labs 08/12/23356 WBC 3.4* HGB 7.8* HCT 24.9* MCV 88.6 Recent Labs 08/12/23356 NA 135 K 3.4* CL 106 CO2 25 Gen: No acute distress. Alert and oriented Extremity: Lower Extremity Motor: HF Q TA EHL GSC Right 3 4 5 4 5 Left 3 4 5 4 5 Lower extremity sensation to light touch: L2 L3 L4 L5 S1 Right Intact Intact Intact Intact Intact Left Intact Intact Intact Intact Intact Lower extremity pulses: DP Right 2+ Left 2+ Wound: Dressing CDI. No evidence of hematoma. Tomas Davidson MD 08/12/2023 11:42 [facility]03-10-2024 Note* Care Coordination - Johanna Carty RN - 08/12/2023 8:41 AM EDT TCC tasked to follow over the weekend. Auth remains pending. TCC to continue to follow and assist prn. [id number] Note* Care Coordination - Johanna Carty RN - 08/12/2023 8:41 AM EDT TCC tasked to follow over the weekend. Auth remains pending. TCC to continue to follow and assist prn. [facility] [id number] NoteOCCUPATIONAL THERAPY [facility] Initial Evaluation Name/MRN: Kayce Hogan ([id number]) Evaluation Date: 08/12/2023 Date of : 1960 Admission Date: 08/09/2023 7:14 AM Age: 62 y.o. Room/Bed: -6105/H-6105 A Discharge Recommendation: Group Home Facility Equipment Needed: (continue to assess) Assessment IMPRESSION: Patient is a 62-year-old female hospitalized s/p T11-L3 PSF, L2 lami, JEAN L3-5 on 08/08. Patient is functionally independent with self-care tasks and functional mobility at baseline. Patient is limited by the deficits listed below. Patient is Min Assist for UB ADLs, Max Assist LB ADLs and Max Assist toileting. Patient is Mod Assist, x2 Person Assist bed mobility and Mod Assist, x2 Person Assist for transfers/functional mobility. Recommending SNF upon discharge. Performance Deficits /Impairments: Increased Pain, Decreased Functional Mobility, Decreased ADL status, Decreased Strength, Decreased Safety Awareness, Decreased Endurance, Decreased Balance, and Decreased Posture Prognosis: Good Decision Making: Medium Complexity Subjective Patient is supine in bed; patient agreeable to therapy evaluation. RN okay'd for participation. Pain: RN managing pain. Past Medical History: Past Medical History: Diagnosis Date 2018 novel coronavirus disease (COVID-19) Alcohol dependence with uncomplicated withdrawal ([facility]) 07/07/2020 Allergic Anxiety Arthritis Asthma Bronchiectasis ([facility]) COPD exacerbation ([facility]) 10/24/2019 Depression Diaphragm paralysis Diastolic heart failure ([facility]) Dizziness 11/09/2020 Dvt femoral (deep venous thrombosis) ([facility]) right...was on blood thinners after broken ankle have been off thinners for a few years Fall 11/21/2020 GERD (gastroesophageal reflux disease) Hypertension Kidney disease Kidney failure 01/09/2019 Kidney stone Obesity Oxygen decrease Currently on Home oxygen, uses with exertion Pulmonary hypertension (HCC) Pulmonary hypertension ([facility]) Weakness 11/21/2020 Past Surgical History: Past Surgical History: Procedure Laterality Date ABDOMINAL SURGERY ADENOIDECTOMY ANKLE SURGERY Right 07/19/2021 APPENDECTOMY 2003 BACK SURGERY CHOLECYSTECTOMY 2004 EXTREMITY SURGERY Left 07/2021 elbow FRACTURE SURGERY HERNIA REPAIR 1972 JOINT REPLACEMENT Bilateral hips LUMBAR DISC SURGERY LUMBAR DISC SURGERY N/A 08/09/2023 REMOVAL HARDWARE LUMBAR 3/4/5, LAMINECTOMY LUMBAR 2, FUSION THORACIC 11-LUMBAR 3, INSTRUMENTATION THORACIC 11-LUMBAR 5, ALLOGRAFT, BONE MORPHOGENETIC PROTEIN TENDON RELEASE Right Right arm TONSILLECTOMY TONSILLECTOMY (HISTORICAL) 1965 TOTAL ABDOMINAL HYSTERECTOMY 2001 Admission Diagnosis: Patient Active Problem List Diagnosis Date Noted Lumbar radiculopathy 08/09/2023 Weakness of both lower extremities 02/15/2023 Ataxia 02/15/2023 Urinary frequency 06/07/2022 Bronchitis 06/07/2022 Hematoma (nontraumatic) of breast 06/07/2022 Nausea 05/15/2022 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) 12/06/2021 Other pancytopenia (CMS/HCC) (HCC) 12/06/2021 Hypertensive heart and chronic kidney disease with heart failure and stage 1 through stage 4 chronic kidney disease, or unspecified chronic kidney disease (HCC) 12/06/2021 Bimalleolar fracture 12/06/2021 Forgetfulness 12/06/2021 Closed fracture of proximal phalanx of toe of left foot 12/06/2021 Personal history of COVID-19 12/06/2021 Postoperative complication 12/06/2021 Subluxation of right ankle joint 12/06/2021 Morbid (severe) obesity due to excess calories (HCC) 12/06/2021 Ulcerative colitis, unspecified, without complications (HCC) 12/06/2021 Tremor 11/21/2020 Hypokalemia 08/26/2020 Chronic hypoxemic respiratory failure (HCC) 08/26/2020 GERD (gastroesophageal reflux disease) 08/26/2020 GENNARO (obstructive sleep apnea) 08/26/2020 Essential hypertension 08/26/2020 Hyperlipidemia 08/26/2020 Current moderate episode of major depressive disorder without prior episode ([facility]) 08/26/2020 Anxiety 08/26/2020 Diaphragm dysfunction 07/27/2020 Unspecified mood (affective) disorder ([facility]) 07/09/2020 Edema of lower extremity 05/10/2020 Stage 1 chronic kidney disease 05/10/2020 Dependent edema 2019 Hypoxemia 12/16/2018 Colitis 12/16/2018 Arthropathy of multiple sites 04/12/2018 Asthma 04/12/2018 Chronic insomnia 04/12/2018 Primary osteoarthritis of right hip 04/12/2018 DDD (degenerative disc disease), lumbar 04/12/2018 Lumbar scoliosis 04/12/2018 History of right hip replacement 04/12/2018 Medical Precautions: No active isolations Proper PPE donned/doffed in accordance with facility standards. Fall Risk: [place] Fall Risk Score: 100 (High Risk) Precautions/Restrictions: Spine Precautions: No Bending, No Lifting, No Twisting Lines/Drains/Airways: PIV Family/Caregiver Present: none Overall Cognitive Status: Exceptions - Following commands: foll (more content not included)...[facility] 08-12-2023 Plan of care note* Care Plan - Gisela Lucas RN - 08/12/2023 5:41 AM EDT Problem: Pain - Adult Goal: Verbalizes/displays adequate comfort level or baseline comfort level Outcome: Progressing Problem: Chronic Conditions and Co-morbidities Goal: Patient's chronic conditions and co-morbidity symptoms are monitored and maintained or improved Outcome: Progressing [id number] Respiratory Care Department Progress Note Comment or reasoning for refusal: Patient was seen in attempts to fulfill CPAP/BiPAP/AutoPAP order. Patient refused PAP therapy/study at this time. Patient was educated on medical need and reasoning for physician order to ensure patient was making an informed medical decision. All of the patient's questions were answered at this time and patient was informed that if the patient changes their mind regarding wearing PAP to hit their call light or inform their nurse to contact Respiratory. A second, consecutive night of refusing PAP therapy/study results in order completion in the EMR. If future CPAP/BiPAP/AutoPAP therapy or study is indicated please place another order in the EMR and the assigned Respiratory Therapist will reattempt to fulfill orders. Reason for refusal: Thank you for involving Respiratory in the care of this patient, [facility]03-09-2024 NoteBrief Orthopaedic Surgery Progress Note Examined patient at bedside for drain removal. Patient is doing well with no new complaints from last exam. The lumbar drain was removed and the drain site was reinforced with necessary bandaging. Very minimal serosanguinous drainage out of the site was noted. Post-operative dressing was saturated and changed. The patient tolerated this well. -Operative plans: No further plans for surgery this admission -Weight bearing as tolerated -Range of motion parameters: ROM as tolerated -Consults: Internal medicine consult for medical management -Antibiotics: ancef until lumbar drain removed, then home PO duricef for 10 days -Dressings: Keep bandage clean dry and intact for 7-10 days post operatively, then ok to leave open to air if incision is without drainage. -Diet: no restrictions from ortho standpoint -Labs: CBC & BMP x 2 days post op -PT/OT -PT recommended outpatient/post discharge?: Yes, for basic ADLs -Medical management, dvt ppx and pain control per primary -DVT ppx recommended?: SCDs and ambulation -Follow-up with Dr Bean in 2 weeks -Ortho primary team. -Dispo: [facility] Samantha Oliver MD PGY-2 Orthopaedic Surgery 08/11/2023 7:53 [facility] [id number] NoteHospitalist Progress Note 08/11/2023 Assessment/Plan: Data: (CAT1) Reviewed 2 notes from different specialty or health system (each=1). (CAT1) Reviewed 2 labs/studies ordered by another provider not previously counted (each=1, panels count as 1). (LOW: 2x CAT1 or independent historian MOD: 3x CAT1 or 1x CAT3 EXTENSIVE: 3x CAT1 and 1x CAT3) Acute, acute on chronic, unstable/uncontrolled chronic problems/diagnoses: S/p lumbar laminectomy with fusion and allograft on 08/08 Acute anemia Tachycardia Anxiety Confusion, likely delirium Stable chronic problems affecting care, new non-acute diagnoses: COPD with chronic respiratory failure, 3 LNC GENNARO on CPAP Pulmonary hypertension HFpEF CKD HTN -No reported bleeding, likely some component of perioperative blood loss -S/p 2U PRBC -Tachycardia likely related to pain -D-dimer 0.79 -Consider LE duplex or CTA to rule out out if tachycardia does not improve -Confusion likely delirium related to pain meds, anxiety meds, significant pain yesterday, anemia, borderline BP -Continue pain meds and anxiety meds as needed, but judicial use -Check TSH, B12. Reviewed vitamin D from June -Home Coreg held given borderline BP - PT/OT/CM/SW - delirium precautions: increase activity - DVT prophylaxis: SCDs and encourage ambulation Total time spent (which include face to face and non face to face encounters) : 40 minutes D/W RN Complexity: Acute illness with systemic symptoms (MOD). Multiple stable chronic illnesses (MOD). Risk: Admission to hospital-level care was considered or occurred (HIGH). Advance Directive: No Order Toxic drug monitoring/narrow therapeutic index drug monitoring : # Drug name : # Route administered: # Method of monitoring: Subjective: Admit Date: 08/09/2023 PCP: Bernardino Moran MD Room#: H-8389/H-0074 A Brief Hospital course: Patient is a 62-year-old female with history of COPD on chronic O2, HTN, pulmonary hypertension, diastolic HF, CKD, GENNARO, HLD, anxiety/depression who was admitted for elective lumbar laminectomy with hardware removal, fusion thoracic 11-L3 with allograft Interval History: Patient seen and evaluated at bedside Alert and oriented x 3 on my eval, but RN noted patient having episodes of forgetfulness and confusion. Asked same questions multiple times Adult diet Regular 24HR INTAKE/OUTPUT: Intake/Output Summary (Last 24 hours) at 08/11/2023 1326 Last data filed at 08/11/2023 0808 Gross per 24 hour Intake 2754 ml Output 1650 ml Net 1104 ml Past Medical History: Past Medical History: Diagnosis Date 2018 novel coronavirus disease (COVID-19) Alcohol dependence with uncomplicated withdrawal (HCC) 07/07/2020 Allergic Anxiety Arthritis Asthma Bronchiectasis (HCC) COPD exacerbation (HCC) 10/24/2019 Depression Diaphragm paralysis Diastolic heart failure (HCC) Dizziness 11/09/2020 Dvt femoral (deep venous thrombosis) (HCC) right...was on blood thinners after broken ankle have been off thinners for a few years Fall 11/21/2020 GERD (gastroesophageal reflux disease) Hypertension Kidney disease Kidney failure 01/09/2019 Kidney stone Obesity Oxygen decrease Currently on Home oxygen, uses with exertion Pulmonary hypertension (HCC) Pulmonary hypertension (HCC) Weakness 11/21/2020 LABS: CBC: Recent Labs 08/10/23 0115 08/11/23 0153 08/11/23 0958 WBC 5.3 4.0 -- RBC 2.75* 2.38* -- HGB 7.6* 6.5* 6.9* HCT 24.7* 21.2* 22.4* MCV 89.8 89.1 -- RDW 14.6 14.8 -- PLT 123* 116* -- BMP: Recent Labs 08/10/23 0115 08/11/23 0153 NA 132* 133* K 4.1 3.3* CL 99 102 CO2 22 27 BUN 17 21* CREATININE 1.20* 1.20* GLUCOSE 130* 114* CALCIUM 8.4 8.4 ANIONGAP 11 4 LIVER PROFILE:No results for input(s): AST, ALT, BILITOT, ALKPHOS, PROT in the last 72 hours. No lab exists for component: LABALBU PT/INR: Recent Labs 08/10/23 0755 PROTIME 11.0 INR 1.0 CARDIAC ENZYMES: No results for input(s): TROPONINI in the last 72 hours. Procalcitonin: No results found for: PROCAL COVID-19 PCR: No results for input(s): COVID19 in the last 72 hours. Objective: Vitals: BP (!) 90/58 Pulse 99 Temp 36.6 ?C (97.8 ?F) (Temporal) Resp 16 SpO2 100% Pulse Ox: SpO2 Av.3 % Min: 92 % Max: 100 % Supplemental O2: O2 Flow Rate (L/min): 2 L/min Physical Exam Vitals and nursing note reviewed. Constitutional: Appearance: Normal appearance. She is obese. Cardiovascular: Rate and Rhythm: Normal rate. Pulmonary: Effort: Pulmonary effort is normal. Abdominal: General: Abdomen is flat. Neurological: Mental Status: She is alert. Psychiatric: Mood and Affect: Mood normal. Behavior: Behavior normal. Medications: acetaminophen, 650 mg, Oral, q6h [Held by provider] carvedilol, 3.125 mg, Oral, qPM ceFAZolin, 2,000 mg, IntraVENous, q8h Lidocaine, 1 patch, Topical, Daily mometasone-formoter (more content not included)...[facility] 08-11-2023 Note* Care Coordination - Johanna Carty RN - 08/11/2023 9:34 AM EST TCC tasked to follow this patient over the weekend. Auth started at [email or web address]. Message sent to facility regarding auth status. Awaiting response. TCC to continue to follow. [facility]03-09-2024 Note* Care Coordination - Johanna Carty RN - 08/11/2023 9:34 AM EST TCC tasked to follow this patient over the weekend. Auth started at [email or web address]. Message sent to facility regarding auth status. Awaiting response. TCC to continue to follow. [facility]03-09-2024 NoteOrthopaedic Spine Progress Note Name: Alfie Hogan Date of : 1960 Age: 62 y.o. Admission Date/Time: 08/09/2023 7:14 AM Assessment: Alfie Hogan is a 62 y.o. female s/p T11-L3 PSF, L2 lami, JEAN L3-L5 08/08 Plan: -Operative plans: No further plans for surgery this admission -Weight bearing as tolerated -Range of motion parameters: ROM as tolerated -Consults: Internal medicine consult for medical management -Antibiotics: ancef until lumbar drain removed, then home PO duricef for 10 days -Dressings: Keep bandage clean dry and intact for 7-10 days post operatively, then ok to leave open to air if incision is without drainage. -Other: Drain care: ortho team will pull when appropriate. Record output every shift. -Diet: no restrictions from ortho standpoint -Labs: CBC & BMP x 2 days post op -PT/OT -PT recommended outpatient/post discharge?: Yes, for basic ADLs -Medical management, dvt ppx and pain control per primary -DVT ppx recommended?: SCDs and ambulation -Follow-up with Dr Bean in 2 weeks -Ortho primary team. -Dispo: pending drain output and SNF Subjective: Tearful and somewhat confused on why she is here. Gently clarified and encouraged. Objective Most Recent Vitals: Vitals: 08/11/23 0510 08/11/23 0526 08/11/23 0754 08/11/23 0808 BP: 98/60 94/66 96/63 98/76 Pulse: 100 98 99 98 Resp: 16 16 12 16 Temp: 36.4 ?C (97.6 ?F) 36.4 ?C (97.5 ?F) 36.9 ?C (98.4 ?F) 36.6 ?C (97.8 ?F) TempSrc: Temporal Temporal Temporal SpO2: 99% 98% 98% Intake/Output last 24 hours: I/O last 3 completed shifts: In: 3950 [P.O.:2350; I.V.:1600] Out: 1860 [Urine:1500; Drains:75] I/O this shift: In: 354 [Blood:354] Out: - Recent Labs 08/11/23 0153 WBC 4.0 HGB 6.5* HCT 21.2* MCV 89.1 Recent Labs 08/11/23 0153 NA 133* K 3.3* CL 102 CO2 27 Gen: No acute distress. Alert and oriented Extremity: Lower Extremity Motor: HF Q TA EHL GSC Right 2 4 5 5 5 Left 4 4 5 5 5 Lower extremity sensation to light touch: L2 L3 L4 L5 S1 Right Intact Intact Intact Intact Intact Left Intact Intact Intact Intact Intact Lower extremity pulses: DP Right 2+ Left 2+ Wound: Dressing CDI. No evidence of hematoma. Drain w/ SS output in canister [75cc] Tomas Davidson MD 08/11/2023 9:21 [facility]03-08-2024 [facility] Respiratory Care Department Progress Note Comment or reasoning for refusal: Patient was seen in attempts to fulfill CPAP/BiPAP/AutoPAP order. Patient refused PAP therapy/study at this time. Patient was educated on medical need and reasoning for physician order to ensure patient was making an informed medical decision. All of the patient's questions were answered at this time and patient was informed that if the patient changes their mind regarding wearing PAP to hit their call light or inform their nurse to contact Respiratory. A second, consecutive night of refusing PAP therapy/study results in order completion in the EMR. If future CPAP/BiPAP/AutoPAP therapy or study is indicated please place another order in the EMR and the assigned Respiratory Therapist will reattempt to fulfill orders. Reason for refusal: pt family to bring in machine Thank you for involving Respiratory in the care of this patient, [facility]03-08-2024 Consult note* Brooke Rhodes APRN - [place] - 08/10/2023 4:35 PM ESTAssociated Order(s): IP CONSULT TO ADDICTION MEDICINE ADDICTION TEAM CONSULTATION THURSDAY, AUGUST 10, 2023 Admit: August 09, 2023; direct admission; orthopedic surgery Yesterday: Removal of spinal hardware; Laminectomies Bone Allograft Addiction Team consulted by Leticia Hector (pain mgmt) due to concern for w/drawal. IDENTIFYING INFORMATION/Chem Dep History Known to our addiction team from two past encounters: Jul 2020 (on addiction unit) August 2020 (ACH consultation Due to alcohol dependence / withdrawal. Direct admission to floor/surgery yesterday. When seen today, POST OP DAY 1. Lying in bed, appearing in discomfort; Sister present, but left room for duration of assessment. When I advised Kayce the reason of my visit, she became very emotional and tearful She expressed fear that due to her history of alcoholism, she would not receive adequate pain medication. Stated she wished she would've been told that this would be an issue; She tells me she hasn't consumed alcohol, remaining abstinent for sixteen months. She did tell me that alcohol use has been a problem with major consequences, mainly losing contact with her children; became very distraught when discussing this She denies hx of seizures, DUIs, legal issues She reports a remote history of opiate use over 19 years ago; none currently; She denies use of marijuana, eventhough I have a card She admits to use of BZOs, prescribed by PCP; takes 30mg temazepam at bedtime PRN for sleep. Denies misuse of temazepam. OARRS reviewed: (restoril) temazepam 30mg # 90 for 90 day supply (last filled Jul 27, 2023) Prescriber: Corin Mariscal MD ([facility]) Reports having been thru several treatment programs in [place], but unable to cite when/where. Reports attending AA Meetings I hated them; Reports frequent online Meeting participation. NO MAT She continued to cry expressing concern over being stigmatized. 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 Speech even w/out pressure; Eyecontact maintained. Appears as stated age; No suicidality or homicidality expressed; Anxious mood with appropriate affect. Skin: No diaphoresis; NO Jaundice NEURO: No tremors, + anxiety Eyes: NO abnormalities observed; PEERLA; PUPIL SIZE: 5mm Respiratory: Non-labored breathing. NO AUDIBLE WHEEZING; NO COUGHING Cardiovascular: No chest pain reported; Radial Pulses Equal; Tachycardia, Hypertension QTC: Abdomen: distended due to habitus Psychiatric: NO evidence of thought disorder or psychosis; Behavioral controls maintained; NO AGITATION; emotionally, very distraught Cognitions: COHERENT, LUCID, ORIENTED TO PERSON/PLACE/ TIME/ SITUATION DIAGNOSES: Alcohol Use disorder: in remission Prescribed BZO use (restoril) Pain (post op) Kayce, per her account and past 2 encounters with our team, clearly admits alcoholism; She reports NO alcohol consumption in past 16 months. Her current distress/anxiety seems to be a combination of yesterday's surgery, pain, fear that painwill not be address and feelings of stigma. No tremors, NO diaphoresis reflective of alcohol w/drawal Tachycardic 104 - 111 PLAN: No evidence of alcohol w/drawal Concern for anxiety: will order PRN ativan while in hospital. OK to continue restoril as prescribed for home use, if ok with primary team. Recommend providing opiate agonists to provide adequate pain management. NO interest in further treatment; will continue Online Meetings. Will sign off but be available for any further help that is needed. Brooke Rhodes DNP, APRN [facility] To reach me, Page to [phone] with call back number [facility]03-08-2024 NoteADDICTION TEAM CONSULTATION THURSDAY, AUGUST 10, 2023 Admit: August 09, 2023; direct admission; orthopedic surgery Yesterday: Removal of spinal hardware; Laminectomies Bone Allograft Addiction Team consulted by Leticia Hector (pain mgmt) due to concern for w/drawal. IDENTIFYING INFORMATION/Chem Dep History Known to our addiction team from two past encounters: Jul 2020 (on addiction unit) August 2020 (ACH consultation Due to alcohol dependence / withdrawal. Direct admission to floor/surgery yesterday. When seen today, POST OP DAY 1. Lying in bed, appearing in discomfort; Sister present, but left room for duration of assessment. When I advised Kayce the reason of my visit, she became very emotional and tearful She expressed fear that due to her history of alcoholism, she would not receive adequate pain medication. Stated she wished she would've been told that this would be an issue; She tells me she hasn't consumed alcohol, remaining abstinent for sixteen months. She did tell me that alcohol use has been a problem with major consequences, mainly losing contact with her children; became very distraught when discussing this She denies hx of seizures, DUIs, legal issues She reports a remote history of opiate use over 19 years ago; none currently; She denies use of marijuana, eventhough I have a card She admits to use of BZOs, prescribed by PCP; takes 30mg temazepam at bedtime PRN for sleep. Denies misuse of temazepam. OARRS reviewed: (restoril) temazepam 30mg # 90 for 90 day supply (last filled Jul 27, 2023) Prescriber: Corin Mariscal MD ([facility]) Reports having been thru several treatment programs in [place], but unable to cite when/where. Reports attending AA Meetings I hated them; Reports frequent online Meeting participation. NO MAT She continued to cry expressing concern over being stigmatized. 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 Speech even w/out pressure; Eyecontact maintained. Appears as stated age; No suicidality or homicidality expressed; Anxious mood with appropriate affect. Skin: No diaphoresis; NO Jaundice NEURO: No tremors, + anxiety Eyes: NO abnormalities observed; PEERLA; PUPIL SIZE: 5mm Respiratory: Non-labored breathing. NO AUDIBLE WHEEZING; NO COUGHING Cardiovascular: No chest pain reported; Radial Pulses Equal; Tachycardia, Hypertension QTC: Abdomen: distended due to habitus Psychiatric: NO evidence of thought disorder or psychosis; Behavioral controls maintained; NO AGITATION; emotionally, very distraught Cognitions: COHERENT, LUCID, ORIENTED TO PERSON/PLACE/ TIME/ SITUATION DIAGNOSES: Alcohol Use disorder: in remission Prescribed BZO use (restoril) Pain (post op) Kayce, per her account and past 2 encounters with our team, clearly admits alcoholism; She reports NO alcohol consumption in past 16 months. Her current distress/anxiety seems to be a combination of yesterday's surgery, pain, fear that pain will not be address and feelings of stigma. No tremors, NO diaphoresis reflective of alcohol w/drawal Tachycardic 104 - 111 PLAN: No evidence of alcohol w/drawal Concern for anxiety: will order PRN ativan while in hospital. OK to continue restoril as prescribed for home use, if ok with primary team. Recommend providing opiate agonists to provide adequate pain management. NO interest in further treatment; will continue Online Meetings. Will sign off but be available for any further help that is needed. Brooke Rhodes DNP, APRN [facility] To reach me, Page to [phone] with call back [facility] 08-10-2023 Consult note* Brooke Rhodes APRN - [employer] - 08/10/2023 4:35 PM EST Associated Order(s): IP CONSULT TO ADDICTION MEDICINE ADDICTION TEAM CONSULTATION THURSDAY, AUGUST 10, 2023 Admit: August 09, 2023; direct admission; orthopedic surgery Yesterday: Removal of spinal hardware; Laminectomies Bone Allograft Addiction Team consulted by Leticia Hector (pain mgmt) due to concern for w/drawal. IDENTIFYING INFORMATION/Chem Dep History Known to our addiction team from two past encounters: Jul 2020 (on addiction unit) August 2020 (ACH consultation Due to alcohol dependence / withdrawal. Direct admission to floor/surgery yesterday. When seen today, POST OP DAY 1. Lying in bed, appearing in discomfort; Sister present, but left room for duration of assessment. When I advised Kayce the reason of my visit, she became very emotional and tearful She expressed fear that due to her history of alcoholism, she would not receive adequate pain medication. Stated she wished she would've been told that this would be an issue; She tells me she hasn't consumed alcohol, remaining abstinent for sixteen months. She did tell me that alcohol use has been a problem with major consequences, mainly losing contact with her children; became very distraught when discussing this She denies hx of seizures, DUIs, legal issues She reports a remote history of opiate use over 19 years ago; none currently; She denies use of marijuana, eventhough I have a card She admits to use of BZOs, prescribed by PCP; takes 30mg temazepam at bedtime PRN for sleep. Denies misuse of temazepam. OARRS reviewed: (restoril) temazepam 30mg # 90 for 90 day supply (last filled Jul 27, 2023) Prescriber: Corin Mariscal MD ([facility]) Reports having been thru several treatment programs in [place], but unable to cite when/where. Reports attending AA Meetings I hated them; Reports frequent online Meeting participation. NO MAT She continued to cry expressing concern over being stigmatized. 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 Speech even w/out pressure; Eyecontact maintained. Appears as stated age; No suicidality or homicidality expressed; Anxious mood with appropriate affect. Skin: No diaphoresis; NO Jaundice NEURO: No tremors, + anxiety Eyes: NO abnormalities observed; PEERLA; PUPIL SIZE: 5mm Respiratory: Non-labored breathing. NO AUDIBLE WHEEZING; NO COUGHING Cardiovascular: No chest pain reported; Radial Pulses Equal; Tachycardia, Hypertension QTC: Abdomen: distended due to habitus Psychiatric: NO evidence of thought disorder or psychosis; Behavioral controls maintained; NO AGITATION; emotionally, very distraught Cognitions: COHERENT, LUCID, ORIENTED TO PERSON/PLACE/ TIME/ SITUATION DIAGNOSES: Alcohol Use disorder: in remission Prescribed BZO use (restoril) Pain (post op) Kayce, per her account and past 2 encounters with our team, clearly admits alcoholism; She reports NO alcohol consumption in past 16 months. Her current distress/anxiety seems to be a combination of yesterday's surgery, pain, fear that painwill not be address and feelings of stigma. No tremors, NO diaphoresis reflective of alcohol w/drawal Tachycardic 104 - 111 PLAN: No evidence of alcohol w/drawal Concern for anxiety: will order PRN ativan while in hospital. OK to continue restoril as prescribed for home use, if ok with primary team. Recommend providing opiate agonists to provide adequate pain management. NO interest in further treatment; will continue Online Meetings. Will sign off but be available for any further help that is needed. Brooke Rhodes DNP, APRN [facility] To reach me, Page to [phone] with call back number * SUZY Valdivia CNP - 08/10/2023 10:26 AM ESTAssociated Order(s): IP CONSULT TO ANESTHESIOLOGY - ACUTE PAIN SERVICE Images from the original note were not included. PAGING: The Acute Pain Service providers are available exclusively via [employer]URE CHAT. APS does not utilize pagers. 08/10/2023 Lab Results Component Value Date CREATININE 1.20 (H) 08/10/2023 CREATININE 0.89 06/07/2022 AST 36 (H) 06/07/2022 ALT 25 06/07/2022 Discharge Recommendations: Pending Pain Management Adjuvants: 0700 --> 0700 08/09/2023 Scheduled APAP 2300 mg Lidocaine patches PRN Hydromorphone IV 2.3 mg Methocarbamol 0 mg Oxycodone 25 mg Assessment / Pain Management Plan: Acute Postsurgical Back pain Multimodal pain regimen: BLOCK: n/a Continue Acetaminophen 650 mg po q6h scheduled ATC. Liver enzymes WNL, last checked: 06/07/22 Continue Lidocaine patch x 1. Cut and place as needed. Continue Hydromorphone 0.25 mg - 0.5 mg IVP q4h prn moderate to severe breakthrough pain. Please utilize oral medications first. Continue Methocarbamol 1000 mg PO TID PRN. Continue Oxycodone 5 - 10 mg po q4h prn moderate to severe breakthrough pain. Continue Naloxone 0.4 mg IVP prn opioid reversal. PRN if respiratory rate is less than 6/min and patient is difficult to arouse then notify physicianSTAT. Mix 9 mL of sodium chloride 0.9% with 0.4 mg (1 mL) of naloxone (NARCAN) in 10 mL syringe. (Note: dilution is 0.04 mg/mL) Give 0.08 mg (2 mL of special dilution), slow IV push, repeat up to 0.4mg (10 mL) or until patient is responsive to physical stimulation and respiratory rate is equal to or greater than 6 breaths/min. Continue to observe, if no response within 3 minutes of administration of 0.4 mg (10 mL) total, repeat dose (0.4 mg as administered previously). Spinal stenosis, lumbar region Pt is s/p T11-L3 PSF, L2 lami, JEAN L3-L5 / See #1 Hx ETOH dependence Patient highly anxious, tremors, tachycardia. Concern for withdrawal? Consult to ADM Told by patient's visitor that patient has a problem with addiction. Pt did not elaborate. GENNARO Monitor in setting of opioid use Constipation At risk for opioid induced constipation Patient currently receiving opioids for pain management necessitating a bowel regimen. Recommend initiating scheduled Sennakot-S 8.6/50mg, 1 tablet PO BID. Would also recommend Milk of Magnesia 400mg/5ml, administer 30mL by mouth daily PRN. Opioid Use Acute: Expected to be short term post op pain, see #1 OARRS reviewed for past two years. (No opiates RX filled) Reviewed and educated patient on responsible use of opioids: after surgery, it can be normal to experience pain. If it is mild and you can move about without great difficulty or discomfort, you may not need to take pain medication. It is very important to take your pain medication only as needed. Avoiding excessive or unnecessary medication, will enable you to progress your activity each day to improve your muscle tone and movement, deep breathing, digestion, circulation and your body's abilityto heal itself. Will follow. Plan discussed with patient who appears to understand and agrees. Subjective: We have been asked to see this 62 y.o. female for acute post operative pain management s/p T11-L3 PSF, L2 lami, JEAN L3-L5 08/08 Reviewed EKG 08/10/2023 RUTH, no pages. On arrival, pt lying in bed . Pt highly anxious on exam, tearful. Trouble word finding, tremors noted. Pt denies narcotic use prior to hospitalization. Patient states she is upset as she is going through a divorce. Active listening and support provided. States she is afraid to use available PRN medications d/t being labeled as an addict. Pt explainsshe had difficulty working with PT d/t pain. Tolerating diet, denies n/v. Notified by patient visitor in private that patient has problems with addiction which includes pills and alcohol. States she also has medications in her purse, notified patient's RN. Consult for ADM placed. Patient educated on pain regimen, aware that oxycodone po, hydromorphone IV, methocarbamol are PRN and patient must ask for these medications when needed. Educated patient to utilize oral pain medications as first line and reserve IV pain medications for severe breakthrough pain. Realistic pain control discussed with patient: Not all pain will be taken away, but pain should be tolerable/manageable with current regimen. Pt instructed to have staff page APS if pain becomes uncontrolled when utilizing present regimen. Pt agreeable, denies further questions. PMH reviewed below Pain Location: Back Aggravating Factors: Moving Sedation score: 1: Awake and alert Pain Severity: severe Pain Quality: tender Alleviating Factors: Rest/Pain medications Pain Management: n/a The patient's medical history and physical assessment, medications, allergies, patient's current medical condition, imaging, and labs were reviewed as part of this consultation. [x] Patient's Medications have been reviewed. [x] Patient's OARRS report (PDMP) have been reviewed. Social History Tobacco Use Smoking Status Former Packs/day: 0.50 Years: 15.00 Additional pack years: 0.00 Total pack years: 7.50 Types: Cigarettes Quit date: 06/04/2005 Years since quittin.1 Smokeless Tobacco Never Social History Substance and Sexual Activity Alcohol Use Not Currently Social History Substance and Sexual Activity Drug Use No Objective Findings: Vital signs: Blood pressure 101/61, pulse 104, temperature 36.4 C (97.6 F), temperature source Temporal, resp. rate 20, SpO2 95%. Allergies: Bee pollen, Cat hair extract, Dust mite extract, Penicillins, Pollen extract, and Seasonal ic [cholestatin] Past Medical History: Diagnosis Date 2018 novel coronavirus disease (COVID-19) Alcohol dependence with uncomplicated withdrawal ([facility]) 07/07/2020 Allergic Anxiety Arthritis Asthma Bronchiectasis ([facility]) COPD exacerbation ([facility]) 10/24/2019 Depression Diaphragm paralysis Diastolic heart failure ([facility]) Dizziness 11/09/2020 Dvt femoral (deep venous thrombosis) ([facility]) right...was on blood thinners after broken ankle have been off thinners for a few years Fall 11/21/2020 GERD (gastroesophageal reflux disease) Hypertension Kidney disease Kidney failure 01/09/2019 Kidney stone Obesity Oxygen decrease Currently on Home oxygen, uses with exertion Pulmonary hypertension (HCC) Pulmonary hypertension ([facility]) Weakness 11/21/2020 Past Surgical History: Procedure Laterality Date ABDOMINAL SURGERY ADENOIDECTOMY ANKLE SURGERY Right 07/19/2021 APPENDECTOMY 2003 BACK SURGERY CHOLECYSTECTOMY 2004 EXTREMITY SURGERY Left 07/2021 elbow FRACTURE SURGERY HERNIA REPAIR 1972 JOINT REPLACEMENT Bilateral hips LUMBAR DISC SURGERY LUMBAR DISC SURGERY N/A 08/09/2023 REMOVAL HARDWARE LUMBAR 3/4/5, LAMINECTOMY LUMBAR 2, FUSION THORACIC 11-LUMBAR 3, INSTRUMENTATION THORACIC 11-LUMBAR 5, ALLOGRAFT, BONE MORPHOGENETIC PROTEIN TENDON RELEASE Right Right arm TONSILLECTOMY TONSILLECTOMY (HISTORICAL) 1965 TOTAL ABDOMINAL HYSTERECTOMY 2001 Family History Problem Relation Name Age of Onset Mental illness Mother Jhoana Cancer Mother Jhoana pancreatic Alcohol abuse Mother Jhoana Depression Mother Jhoana High Blood Pressure Father Geronimo Cancer Father Geronimo colon Alcohol abuse Father Geronimo Hypertension Father Geronimo Colon cancer Father Geronimo Alcohol abuse Sister Cr Alcohol abuse Brother Noah Patient Active Problem List Diagnosis Hypokalemia Edema of lower extremity Diaphragm dysfunction Stage 1 chronic kidney disease Chronic hypoxemic respiratory failure (HCC) Unspecified mood (affective) disorder (HCC) GERD (gastroesophageal reflux disease) Arthropathy of multiple sites Asthma Chronic insomnia GENNARO (obstructive sleep apnea) Primary osteoarthritis of right hip DDD (degenerative disc disease), lumbar Lumbar scoliosis History of right hip replacement Essential hypertension Hyperlipidemia Current moderate episode of major depressive disorder without prior episode (HCC) Dependent edema Anxiety Tremor 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) Other pancytopenia (CMS/HCC) (HCC) Hypertensive heart and chronic kidney disease with heart failure and stage 1 through stage 4 chronic kidney disease, or unspecified chronic kidney disease (HCC) Bimalleolar fracture Forgetfulness Closed fracture of proximal phalanx of toe of left foot Personal history of COVID-19 Postoperative complication Subluxation of right ankle joint Morbid (severe) obesity due to excess calories (HCC) Ulcerative colitis, unspecified, without complications (HCC) Hypoxemia Colitis Nausea Urinary frequency Bronchitis Hematoma (nontraumatic) of breast Weakness of both lower extremities Ataxia Lumbar radiculopathy Review of Systems Constitutional: Negative for chills and fever. HENT: Negative for trouble swallowing. Eyes: Negative for visual disturbance. Respiratory: Negative for shortness of breath. Cardiovascular: Negative for chest pain. Gastrointestinal: Negative for abdominal pain, nausea and vomiting. Musculoskeletal: Positive for back pain. Negative for arthralgias. Skin: Positive for wound (surgical). Neurological: Positive for tremors. Negative for dizziness and headaches. Psychiatric/Behavioral: Negative for confusion. The patient is not nervous/anxious. Physical Exam Vitals and nursing note reviewed. Constitutional: General: She is not in acute distress. Appearance: Normal appearance. HENT: Head: Normocephalic and atraumatic. Eyes: General: Vision grossly intact. Cardiovascular: Rate and Rhythm: Tachycardia present. Pulmonary: Effort: Pulmonary effort is normal. Comments: O2 NC Abdominal: Palpations: Abdomen is soft. Musculoskeletal: General: Tenderness (lumbar surgical) present. Normal range of motion. Skin: General: Skin is warm and dry. Neurological: Mental Status: She is alert and oriented to person, place, and time. Psychiatric: Mood and Affect: Mood normal. Behavior: Behavior normal. PAGING: The Acute Pain Service providers are available exclusively via [employer]. APS does not utilize pagers. * Tessie Polanco MD - 08/09/2023 6:20 PM ESTAssociated Order(s): IP CONSULT TO HOSPITALIST Images from the original note were not included. Hospital Medicine Consult Patient - Alfie Hogan, Age - 62 y.o. - 1960 Room Number - @[email or web address]@ Consulting - Brandon Bean MD Primary Care Physician - Bernardino Moran MD [facility] # - [id number] Date of Admission - 08/09/2023 7:14 AM Hospital Day - 0 Reason for Consult: Medical Management HISTORY OF PRESENT ILLNESS: Alfie is a 62 y.o. female pmhx hypertension, chronic respiratory failure due to COPD, pulmonary hypertension on 3 L of oxygen at baseline, CHF, obstructive sleep apnea, hyperlipidemia, anxiety/depression admitted for elective lumbar laminectomy with hardware removal, fusion thoracic 11-L3 with allograft Internal medicine service consulted for med management Patient seen resting comfortably in bed, pain well-controlled. Past Medical History: Past Medical History: Diagnosis Date 2018 novel coronavirus disease (COVID-19) Alcohol dependence with uncomplicated withdrawal (HCC) 07/07/2020 Allergic Anxiety Arthritis Asthma Bronchiectasis ([facility]) COPD exacerbation ([facility]) 10/24/2019 Depression Diaphragm paralysis Diastolic heart failure ([facility]) Dizziness 11/09/2020 Dvt femoral (deep venous thrombosis) ([facility]) right...was on blood thinners after broken ankle have been off thinners for a few years Fall 11/21/2020 GERD (gastroesophageal reflux disease) Hypertension Kidney disease Kidney failure 01/09/2019 Kidney stone Obesity Oxygen decrease Currently on Home oxygen, uses with exertion Pulmonary hypertension (HCC) Pulmonary hypertension (HCC) Weakness 11/21/2020 Past Surgical History: Past Surgical History: Procedure Laterality Date ABDOMINAL SURGERY ADENOIDECTOMY ANKLE SURGERY Right 07/19/2021 APPENDECTOMY 2003 BACK SURGERY CHOLECYSTECTOMY 2004 EXTREMITY SURGERY Left 07/2021 elbow FRACTURE SURGERY HERNIA REPAIR 1972 JOINT REPLACEMENT Bilateral hips LUMBAR DISC SURGERY LUMBAR DISC SURGERY N/A 08/09/2023 REMOVAL HARDWARE LUMBAR /4/5, LAMINECTOMY LUMBAR 2, FUSION THORACIC 11-LUMBAR 3, INSTRUMENTATION THORACIC 11-LUMBAR 5, ALLOGRAFT, BONE MORPHOGENETIC PROTEIN TENDON RELEASE Right Right arm TONSILLECTOMY TONSILLECTOMY (HISTORICAL) 1966 TOTAL ABDOMINAL HYSTERECTOMY 2001 Medications: acetaminophen, 650 mg, Oral, q6h carvedilol, 3.125 mg, Oral, qPM ceFAZolin, 2,000 mg, IntraVENous, q8h dexAMETHasone, 6 mg, IntraVENous, q6h mometasone-formoterol, 2 puff, Inhalation, BID [START ON 08/10/2023] pantoprazole, 40 mg, Oral, q AM rosuvastatin, 40 mg, Oral, Nightly sodium chloride 0.9%, 10 mL, IntraVENous, 2 times per day trospium, 20 mg, Oral, BID lactated Ringer's, 50 mL/hr, Last Rate: 50 mL/hr (08/09/23 7445) PRN medications: albuterol, HYDROmorphone OR HYDROmorphone, naloxone, ondansetron ODT OR ondansetron, oxyCODONE OR oxyCODONE, polyethylene glycol (PEG) 3350, sodium chloride, sodium chloride 0.9% Allergies: Bee pollen, Cat hair extract, Dust mite extract, Penicillins, Pollen extract, and Seasonal ic [cholestatin] Social History: Social History Socioeconomic History Marital status: Spouse name: Not on file Number of children: Not on file Years of education: Not on file Highest education level: Not on file Occupational History Not on file Tobacco Use Smoking status: Former Packs/day: 0.50 Years: 15.00 Additional pack years: 0.00 Total pack years: 7.50 Types: Cigarettes Quit date: 06/04/2005 Years since quittin.1 Smokeless tobacco: Never Vaping Use Vaping Use: Never used Substance and Sexual Activity Alcohol use: Not Currently Drug use: No Sexual activity: Yes Partners: Male control/protection: Female Sterilization Other Topics Concern Not on file Social History Narrative Not on file Social Determinants of Health Financial Resource Strain: Low Risk (06/02/2022) Overall Financial Resource Strain (CARDIA) Difficulty of Paying Living Expenses: Not hard at all Food Insecurity: No Food Insecurity (06/02/2022) Hunger Vital Sign Worried About Running Out of Food in the Last Year: Never true Ran Out of Food in the Last Year: Never true Transportation Needs: No Transportation Needs (06/02/2022) PRAPARE - Transportation Lack of Transportation (Medical): No Lack of Transportation (Non-Medical): No Physical Activity: Not on file Stress: Not on file Social Connections: Not on file Intimate Partner Violence: Not At Risk (08/09/2023) Humiliation, Afraid, Rape, and Kick questionnaire Fear of Current or Ex-Partner: No Emotionally Abused: No Physically Abused: No Sexually Abused: No Housing Stability: Not on file Family History: @FAMHXNH@ REVIEW OF SYSTEMS: 10 point ROS obtained, as per HPI, otherwise NEG Physical Exam: Vitals: BP 91/69 Pulse 95 Temp 36.5 C (97.7 F) (Temporal) Resp 18 SpO2 100% BMI Classification: Morbidly Obese (>40.0) Pulse Ox: SpO2 Av % Min: 96 % Max: 100 % Supplemental O2: O2 Flow Rate (L/min): 3 L/min General appearance: No apparent distress, appears stated age and cooperative with exam. HEENT: Eyes: No scleral icterus,no pallor Oral: Tongue is semi-moist Cardiovascular: S1/S2 heard, RRR Respiratory: Clear to auscultation bilaterally Abdomen: Soft, non-tender, non-distended bowel sounds positive,no mass palpable Extremity: no peripheral edema Neurology:no focal neurological deficits,Awake , alert LABS: CBC: No results for input(s): WBC, RBC, HGB, HCT, MCV, RDW, PLT in the last 72 hours. BMP:@LABRCNT(NA:3,K:3,CL:3,CO2:3,BUN:3,CREATININE:3,GLUCOSE:3,CALCIUM :3,ANIONGAP:3)@ LIVER PROFILE:No results for input(s): AST, ALT, BILITOT, ALKPHOS, PROT in the last 72 hours. No lab exists for component: LABALBU PT/INR: No results for input(s): PROTIME, INR in the last 72 hours. CARDIAC ENZYMES: No results for input(s): TROPONINI in the last 72 hours. Procalcitonin: No results found for: PROCAL Urine Culture: No results found for this or any previous visit. IMAGING: See report Assessment Acute, acute on chronic, unstable/uncontrolled chronic problems/diagnoses: Spinal stenosis lumbar region s/p lumbar laminectomy with fusion and allograft on 08/08 Stable chronic problems affecting care, new non-acute diagnoses: Hypertension COPD Pulmonary hypertension Chronic respiratory failure on 3 L of oxygen from about Obstructive sleep apnea on CPAP Anxiety/depression CHF not exacerbation CKD mild GERD Plan Blood pressure noted to be low, hold home Coreg resume when BP permits Continue oxygen at 3 L at baseline CPAP at night pain control, drain care per primary/neurosurgery SCD for DVT prophylaxis Monitor hemoglobin postoperatively Labs ordered for AM Encourage early ambulation, incentive spirometer DVT/GI prophylaxis Home medication was restarted Patient was informed about all work-up treatment plan Discussed with nursing staff -see below for additional orders; further recommendations to follow Orders Placed This Encounter Procedures FL GUIDANCE OR USE ONLY - NON RESULTABLE Potassium with Mg Reflex Protime-INR Potassium Basic metabolic panel CBC auto differential Adult diet Regular Vital Signs Place sequential compression device Drain Suction Instructions Insert indwelling urinary catheter Remove indwelling urinary catheter per Nurse Driven Protocol Bladder scan Straight cath Inpatient consult to Anesthesiology - Acute Pain Service--ANESTHESIA - ACUTE PAIN SERVICE Inpatient consult to Hospitalist--[facility] OT eval and treat PT eval and treat Initiate Oxygen Therapy Protocol Admit to inpatient CAUTI Precautions Thank you for allowing us to participate in the care and management of this patient. NOTE: This report was transcribed using voice recognition software. Every effort was made to ensureaccuracy; however, inadvertent computerized electrotherapist errors may be present. TESSIE POLANCO MD, Division of Hospitalist Medicine [facility] documented in this [facility]03-08-2024 NoteRefer to today's Consultation Note [facility]* Care Coordination - Bre Parikh RN - 08/10/2023 2:43 PM EST [facility] is able to accept patient, auth started. Weekend TCC tasked to follow. TCCto assist and follow as needed. [id number] Note* Care Coordination - Bre Parikh RN - 08/10/2023 2:43 PM EST [facility] is able to accept patient, auth started. Weekend TCC tasked to follow. TCCto assist and follow as needed. [id number] Note* Addendum Note - SUZY Valdivia CNP - 08/10/2023 1:19 PM EST Addendum created 08/10/23 131 by SUZY Valdivia CNP Clinical Note Signed, SmartForm saved [facility] [place] Phone: 1(353) 281-514703-08-2024 Note* Addendum Note - SUZY Valdivia CNP - 08/10/2023 1:19 PM EST Addendum created 08/10/23 131 by SUZY Valdivia CNP Clinical Note Signed, SmartForm saved [facility] [place] Phone: 1(938) 636-565103-08-2024 NoteAddendum created 08/10/23 131 by SUZY Valdivia CNP Clinical Note Signed, [facility] Miscellaneous Notes* Addendum Note - SUZY Valdivia CNP - 08/10/2023 1:19 PM EST Addendum created 08/10/23 131 by SUZY Valdivia CNP Clinical Note Signed, SmartForm saved * Addendum Note - SUZY Valdivia CNP - 08/10/2023 10:54 AM EST Addendum created 08/10/23 105 by SUZY Valdivia CNP Pend clinical note documented in this [facility]03-08-2024 NoteNOTE: This result is for medical treatment only. Analysis performed using non-forensic procedures. [facility] [id number] Note* Care Coordination - Bre Parikh RN - 08/10/2023 12:52 PM EST Care Managment Initial Assessment Date: 08/10/2023 Patient Name: Alfie Hogan : 1960 Patient Information Source of Information: Patient Cognition/Language: WFL - Within Functional Limits Permission given to speak with patient medical field representative/caregiver as indicated: Yes Confirmation of Payer with patient/family: Yes Payer Name: [employer] Complete [place]: No Confirmation of Primary Care Physician: Confirmed PCP Name: Dr. Velasquez Seen in last 2 years?: Yes Primary Caregiver: Self If assistance needed, confirmed caregiver ready, willing and able to care for patient at discharge:Yes Confirmed with: Carlita Palencia-sister Living Arrangements Current Residence: House Number of Floors 1 Number of Entry Steps: 2 Bed/Bath Levels: Both first floor Facility: Facility Name: Plan to Return: Lives with: (ex ) Support Systems: Family members Activities of Daily Living Ambulation: Independent Bathing/Dressing: Independent Elimination/Continence/Toileting: Independent Feeding: Independent Who Assists with Activities of Daily Living: Instrumental Activities of Daily Living Prescription Coverage: Yes Pharmacy Used: [facility] Medication Management: Independent Transportation/Shopping: Independent Transportation Mode: Car Needs Assistance with Transportation at Discharge: No Meal Preparation: Independent Laundry/Cleaning: Independent Finances/Bill Paying: Independent Communication: Independent Types of Care Services/Equipment Utilized Care Services: Dialysis Type: Durable Medical Equipment: Patient's Goal/Discharge Plan Patient expects to be discharged to: SNF Discharge Planning Actions: Group Home Facility referral indicated, Continue to follow Gates of choice: Gates of choice discussed Patient's Choice Rights and [employer] and Collaborative Relationships Disclosed as Indicated for Post-Acute Care: Yes Interdisciplinary Team Engagement: PT/OT Social Work Referral for: Additional Information: Patient admitted to H6 s/p removal of hardware lami fusion 08/09/2023. Reg diet noted. PT/OT eval noted. PT recommending snf. Met with pt at bedside, introduced self and explained role of TCC. Pt has insurance with RX coverage, active with PCP.Sister is in the room with patient, added as contact. Patient lives with ex- . [facility] and [facility] NUCLEAR OPERATIONS SPECIALIST tasked to make referrals. Patient is tearful throughout visit. Discharge plan is snf. TCC to assist and follow as needed. '' Bre Parikh RN [facility] [id number] Note* Care Coordination - Bre Parikh RN - 08/10/2023 12:52 PM EST Care Managment Initial Assessment Date: 08/10/2023 Patient Name: Alfie Hogan : 1960 Patient Information Source of Information: Patient Cognition/Language: WFL - Within Functional Limits Permission given to speak with patient medical field representative/caregiver as indicated: Yes Confirmation of Payer with patient/family: Yes Payer Name: [employer] Complete : No Confirmation of Primary Care Physician: Confirmed PCP Name: Dr. Velasquez Seen in last 2 years?: Yes Primary Caregiver: Self If assistance needed, confirmed caregiver ready, willing and able to care for patient at discharge:Yes Confirmed with: Carlita Palencia-sister Living Arrangements Current Residence: House Number of Floors 1 Number of Entry Steps: 2 Bed/Bath Levels: Both first floor Facility: Facility Name: Plan to Return: Lives with: (ex ) Support Systems: Family members Activities of Daily Living Ambulation: Independent Bathing/Dressing: Independent Elimination/Continence/Toileting: Independent Feeding: Independent Who Assists with Activities of Daily Living: Instrumental Activities of Daily Living Prescription Coverage: Yes Pharmacy Used: [facility] Medication Management: Independent Transportation/Shopping: Independent Transportation Mode: Car Needs Assistance with Transportation at Discharge: No Meal Preparation: Independent Laundry/Cleaning: Independent Finances/Bill Paying: Independent Communication: Independent Types of Care Services/Equipment Utilized Care Services: Dialysis Type: Durable Medical Equipment: Patient's Goal/Discharge Plan Patient expects to be discharged to: SNF Discharge Planning Actions: Group Home Facility referral indicated, Continue to follow Gates of choice: Gates of choice discussed Patient's Choice Rights and [employer] and Collaborative Relationships Disclosed as Indicated for Post-Acute Care: Yes Interdisciplinary Team Engagement: PT/OT Social Work Referral for: Additional Information: Patient admitted to H6 s/p removal of hardware lami fusion 08/09/2023. Reg diet noted. PT/OT eval noted. PT recommending snf. Met with pt at bedside, introduced self and explained role of TCC. Pt has insurance with RX coverage, active with PCP.Sister is in the room with patient, added as contact. Patient lives with ex- . Patient wants to go to a snf, [facility] and the second [facility] NUCLEAR OPERATIONS SPECIALIST tasked to make referrals. Patient is tearful throughout visit. Discharge plan is snf. TCC to assist and follow as needed. '' Bre Parikh RN [facility] [id number] NoteHospitalist Progress Note 08/10/2023 Assessment/Plan: Data: (CAT1) Reviewed 2 notes from different specialty or health system (each=1). (CAT1) Reviewed 2 labs/studies ordered by another provider not previously counted (each=1, panels count as 1). (LOW: 2x CAT1 or independent historian MOD: 3x CAT1 or 1x CAT3 EXTENSIVE: 3x CAT1 and 1x CAT3) Acute, acute on chronic, unstable/uncontrolled chronic problems/diagnoses: S/p lumbar laminectomy with fusion and allograft on 08/08 Acute anemia Tachycardia Anxiety Stable chronic problems affecting care, new non-acute diagnoses: COPD with chronic respiratory failure, 3 LNC GENNARO on CPAP Pulmonary hypertension HFpEF CKD HTN -No reported bleeding, likely some component of perioperative blood loss -Iron studies -Tachycardia likely related to pain -D-dimer 0.79 -Consider LE duplex or CTA to rule out out if tachycardia does not improve -Continue pain control -Trial hydroxyzine for anxiety -Home Coreg held given borderline BP - PT/OT/CM/SW - delirium precautions: increase activity - DVT prophylaxis: SCDs and encourage ambulation Total time spent (which include face to face and non face to face encounters) : 38 minutes D/W sister at bedside D/W RN Complexity: Acute illness with systemic symptoms (MOD). Multiple stable chronic illnesses (MOD). Risk: Admission to hospital-level care was considered or occurred (HIGH). Advance Directive: No Order Toxic drug monitoring/narrow therapeutic index drug monitoring : # Drug name : # Route administered: # Method of monitoring: Subjective: Admit Date: 08/09/2023 PCP: Bernardino Moran MD Room#: H-6105/H-6109 A Brief Hospital course: Patient is a 62-year-old female with history of COPD on chronic O2, HTN, pulmonary hypertension, diastolic HF, CKD, GENNARO, HLD, anxiety/depression who was admitted for elective lumbar laminectomy with hardware removal, fusion thoracic 11-L3 with allograft Interval History: Patient seen and evaluated at bedside, sister present Patient very uncomfortable this moment, states she is in pain and waiting for pain meds to be given Appears very anxious as well Denies any area of bleeding Adult diet Regular 24HR INTAKE/OUTPUT: Intake/Output Summary (Last 24 hours) at 08/10/2023 1242 Last data filed at 08/10/2023 0356 Gross per 24 hour Intake 700 ml Output 1060 ml Net -360 ml Past Medical History: Past Medical History: Diagnosis Date 2018 novel coronavirus disease (COVID-19) Alcohol dependence with uncomplicated withdrawal (HCC) 07/07/2020 Allergic Anxiety Arthritis Asthma Bronchiectasis (HCC) COPD exacerbation (HCC) 10/24/2019 Depression Diaphragm paralysis Diastolic heart failure (HCC) Dizziness 11/09/2020 Dvt femoral (deep venous thrombosis) (HCC) right...was on blood thinners after broken ankle have been off thinners for a few years Fall 11/21/2020 GERD (gastroesophageal reflux disease) Hypertension Kidney disease Kidney failure 01/09/2019 Kidney stone Obesity Oxygen decrease Currently on Home oxygen, uses with exertion Pulmonary hypertension (HCC) Pulmonary hypertension (HCC) Weakness 11/21/2020 LABS: CBC: Recent Labs 08/10/23 0115 WBC 5.3 RBC 2.75* HGB 7.6* HCT 24.7* MCV 89.8 RDW 14.6 PLT 123* BMP: Recent Labs 08/10/23 0115 NA 132* K 4.1 CL 99 CO2 22 BUN 17 CREATININE 1.20* GLUCOSE 130* CALCIUM 8.4 ANIONGAP 11 LIVER PROFILE:No results for input(s): AST, ALT, BILITOT, ALKPHOS, PROT in the last 72 hours. No lab exists for component: LABALBU PT/INR: Recent Labs 08/10/23 0755 PROTIME 11.0 INR 1.0 CARDIAC ENZYMES: No results for input(s): TROPONINI in the last 72 hours. Procalcitonin: No results found for: PROCAL COVID-19 PCR: No results for input(s): COVID19 in the last 72 hours. Objective: Vitals: BP 101/61 (BP Location: Right arm, Patient Position: Lying) Pulse 104 Temp 36.4 ?C (97.6 ?F) (Temporal) Resp 20 SpO2 95% Pulse Ox: SpO2 Av.7 % Min: 93 % Max: 100 % Supplemental O2: O2 Flow Rate (L/min): 2 L/min Physical Exam Vitals and nursing note reviewed. Constitutional: Appearance: Normal appearance. She is obese. Cardiovascular: Rate and Rhythm: Normal rate. Pulmonary: Effort: Pulmonary effort is normal. Abdominal: General: Abdomen is flat. Neurological: Mental Status: She is alert. Psychiatric: Mood and Affect: Mood normal. Behavior: Behavior normal. Medications: acetaminophen, 650 mg, Oral, q6h [Held by provider] carvedilol, 3.125 mg, Oral, qPM ceFAZolin, 2,000 mg, IntraVENous, q8h dexAMETHasone, 6 mg, IntraVENous, q6h Lidocaine, 1 patch, Topical, Daily mometasone-formoterol, 2 puff, Inhalation, BID pantoprazole, 40 mg, Oral, q AM rosuvastatin, 40 mg, Oral, Nightly sodium chloride 0.9%, 10 mL, IntraVENous, 2 times per day trospium, 20 mg, Oral, BID No emergency con (more content not included)...[facility]03-08-2024 Note* Care Coordination - Logan Maurer - 08/10/2023 11:25 AM EST Referral placed to [facility] ( healthy living) via [facility] per [facility] request. Await review and response regarding ability to accept. TCC notified. [facility]03-08-2024 Note* Care Coordination - Logan Maurer - 08/10/2023 11:25 AM EST Referral placed to [facility] ( [facility] via [facility] per TCC request. Await review and response regarding ability to accept. TCC notified. [facility]03-08-2024 NoteReferral placed to [facility] ( [facility]) via [facility] per TCC request. Await review and response regarding ability to accept. TCC notified. [facility]03-08-2024 Note* Addendum Note - SUZY Valdivia CNP - 08/10/2023 10:54 AM EST Addendum created 08/10/23 105 by SUZY Valdivia CNP Pend clinical note [facility]03-08-2024 Note* Addendum Note - SUZY Valdivia CNP - 08/10/2023 10:54 AM EST Addendum created 08/10/23 105 by SUZY Valdivia CNP Pend clinical note [facility]03-08-2024 NoteAddendum created 08/10/23 105 by SUZY Valdivia CNP Pend clinical [facility]03-08-2024 NotePHYSICAL THERAPY [facility] Initial Evaluation Name/MRN: Kayce Hogan ([id number]) Evaluation Date: 08/10/2023 Date of : 1960 Admission Date: 08/09/2023 7:14 AM Age: 62 y.o. Room/Bed: H-6105/H-6105 A Discharge Recommendation: Group Home Facility Equipment Needed: No Assessment IMPRESSION: Pt is s/p elective hardware removal and fusion T11-L3 by Dr. Bean. Pt is a poor historian with word finding difficulties and inconsistent reporting noted during subjective assessment. She is primarily limited by pain, decreased safety awareness and appears anxious with mobility tasks requiring increased VC and tactile cues to assist with re-attending pt to task. Pt requiring mod to max A for bed mobility and transfers. She was unable to progress to amb due to dizziness and nausea with standing EOB. Rec SNF due to increased fall risk and deficits noted below. Diagnosis: lumbar radiculopathy Prognosis: good Performance Deficits /Impairments: Increased Pain, Decreased Functional Mobility, Decreased ADL status, Decreased Strength, Decreased Safety Awareness, Decreased Cognition, Decreased Endurance, and Decreased Balance Decision Making: Medium Complexity Subjective Pt reclined in bed with 2 L O2 NC. Sister sleeping on sofa. Pt agreeable to therapy with sister present. Pain: 0-10 pain scale: 5-8/10 Location: back Past Medical History: Past Medical History: Diagnosis Date 2018 novel coronavirus disease (COVID-19) Alcohol dependence with uncomplicated withdrawal (HCC) 07/07/2020 Allergic Anxiety Arthritis Asthma Bronchiectasis ([facility]) COPD exacerbation ([facility]) 10/24/2019 Depression Diaphragm paralysis Diastolic heart failure (HCC) Dizziness 11/09/2020 Dvt femoral (deep venous thrombosis) ([facility]) right...was on blood thinners after broken ankle have been off thinners for a few years Fall 11/21/2020 GERD (gastroesophageal reflux disease) Hypertension Kidney disease Kidney failure 01/09/2019 Kidney stone Obesity Oxygen decrease Currently on Home oxygen, uses with exertion Pulmonary hypertension (HCC) Pulmonary hypertension (HCC) Weakness 11/21/2020 Past Surgical History: Past Surgical History: Procedure Laterality Date ABDOMINAL SURGERY ADENOIDECTOMY ANKLE SURGERY Right 07/19/2021 APPENDECTOMY 2003 BACK SURGERY CHOLECYSTECTOMY 2004 EXTREMITY SURGERY Left 07/2021 elbow FRACTURE SURGERY HERNIA REPAIR 1972 JOINT REPLACEMENT Bilateral hips LUMBAR DISC SURGERY LUMBAR DISC SURGERY N/A 08/09/2023 REMOVAL HARDWARE LUMBAR 3/4/5, LAMINECTOMY LUMBAR 2, FUSION THORACIC 11-LUMBAR 3, INSTRUMENTATION THORACIC 11-LUMBAR 5, ALLOGRAFT, BONE MORPHOGENETIC PROTEIN TENDON RELEASE Right Right arm TONSILLECTOMY TONSILLECTOMY (HISTORICAL) 1965 TOTAL ABDOMINAL HYSTERECTOMY 2001 Admission Diagnosis: Patient Active Problem List Diagnosis Date Noted Lumbar radiculopathy 08/09/2023 Weakness of both lower extremities 02/15/2023 Ataxia 02/15/2023 Urinary frequency 06/07/2022 Bronchitis 06/07/2022 Hematoma (nontraumatic) of breast 06/07/2022 Nausea 05/15/2022 Dementia 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 ([facility]) 12/06/2021 Other pancytopenia (CMS/HCC) (HCC) 12/06/2021 Hypertensive heart and chronic kidney disease with heart failure and stage 1 through stage 4 chronic kidney disease, or unspecified chronic kidney disease ([facility]) 12/06/2021 Bimalleolar fracture 12/06/2021 Forgetfulness 12/06/2021 Closed fracture of proximal phalanx of toe of left foot 12/06/2021 Personal history of COVID-19 12/06/2021 Postoperative complication 12/06/2021 Subluxation of right ankle joint 12/06/2021 Morbid (severe) obesity due to excess calories ([facility]) 12/06/2021 Ulcerative colitis, unspecified, without complications ([facility]) 12/06/2021 Tremor 11/21/2020 Hypokalemia 08/26/2020 Chronic hypoxemic respiratory failure ([facility]) 08/26/2020 GERD (gastroesophageal reflux disease) 08/26/2020 GENNARO (obstructive sleep apnea) 08/26/2020 Essential hypertension 08/26/2020 Hyperlipidemia 08/26/2020 Current moderate episode of major depressive disorder without prior episode ([facility]) 08/26/2020 Anxiety 08/26/2020 Diaphragm dysfunction 07/27/2020 Unspecified mood (affective) disorder ([facility]) 07/09/2020 Edema of lower extremity 05/10/2020 Stage 1 chronic kidney disease 05/10/2020 Dependent edema 2019 Hypoxemia 12/16/2018 Colitis 12/16/2018 Arthropathy of multiple sites 04/12/2018 Asthma 04/12/2018 Chronic insomnia 04/12/2018 Primary osteoarthritis of right hip 04/12/2018 DDD (degenerative disc disease), lumbar 04/12/2018 Lumbar scoliosis 04/12/2018 History of right hip replacement 04/12/2018 Medical Precautions: No active isolations Proper PPE donned/doffed in accordance with facility standards. Fall Risk: [place] Fall Risk Score: 85 (High Risk) Precautions/Restrictions: Other Position/Activity Restriction: (more content not included)...[facility]03-08-2024 Consult note* Leticia Hector APRN - [employer] - 08/10/2023 10:26 AM ESTAssociated Order(s): IP CONSULT TO ANESTHESIOLOGY - ACUTE PAIN SERVICE Images from the original note were not included. PAGING: The Acute Pain Service providers are available exclusively via [employer]. [facility] does not utilize pagers. 08/10/2023 Lab Results Component Value Date CREATININE 1.20 (H) 08/10/2023 CREATININE 0.89 06/07/2022 AST 36 (H) 06/07/2022 ALT 25 06/07/2022 Discharge Recommendations: Pending Pain Management Adjuvants: 0700 --> 0700 08/09/2023 Scheduled APAP 2300 mg Lidocaine patches PRN Hydromorphone IV 2.3 mg Methocarbamol 0 mg Oxycodone 25 mg Assessment / Pain Management Plan: Acute Postsurgical Back pain Multimodal pain regimen: BLOCK: n/a Continue Acetaminophen 650 mg po q6h scheduled ATC. Liver enzymes WNL, last checked: 06/07/22 Continue Lidocaine patch x 1. Cut and place as needed. Continue Hydromorphone 0.25 mg - 0.5 mg IVP q4h prn moderate to severe breakthrough pain. Please utilize oral medications first. Continue Methocarbamol 1000 mg PO TID PRN. Continue Oxycodone 5 - 10 mg po q4h prn moderate to severe breakthrough pain. Continue Naloxone 0.4 mg IVP prn opioid reversal. PRN if respiratory rate is less than 6/min and patient is difficult to arouse then notify physicianSTAT. Mix 9 mL of sodium chloride 0.9% with 0.4 mg (1 mL) of naloxone (NARCAN) in 10 mL syringe. (Note: dilution is 0.04 mg/mL) Give 0.08 mg (2 mL of special dilution), slow IV push, repeat up to 0.4mg (10 mL) or until patient is responsive to physical stimulation and respiratory rate is equal to o r greater than 6 breaths/min. Continue to observe, if no response within 3 minutes of administration of 0.4 mg (10 mL) total, repeat dose (0.4 mg as administered previously). Spinal stenosis, lumbar region Pt is s/p T11-L3 PSF, L2 lami, JEAN L3-L5 3 See #1 Hx ETOH dependence Patient highly anxious, tremors, tachycardia. Concern for withdrawal? Consult to ADM Told by patient's visitor that patient has a problem with addiction. Pt did not elaborate. GENNARO Monitor in setting of opioid use Constipation At risk for opioid induced constipation Patient currently receiving opioids for pain management necessitating a bowel regimen. Recommend initiating scheduled Sennakot-S 8.6/50mg, 1 tablet PO BID. Would also recommend Milk of Magnesia 400mg/5ml, administer 30mL by mouth daily PRN. Opioid Use Acute: Expected to be short term post op pain, see #1 OARRS reviewed for past two years. (No opiates RX filled) Reviewed and educated patient on responsible use of opioids: after surgery, it can be normal to experience pain. If it is mild and you can move about without great difficulty or discomfort, you may not need to take pain medication. It is very important to take your pain medication only as needed. Avoiding excessive or unnecessary medication, will enable you to progress your activity each day to improve your muscle tone and movement, deep breathing, digestion, circulation and your body's abilityto heal itself. Will follow. Plan discussed with patient who appears to understand and agrees. Subjective: We have been asked to see this 62 y.o. female for acute post operative pain management s/p T11-L3 PSF, L2 lami, JEAN L3-L5 08/08 Reviewed EKG 08/10/2023 RUTH, no pages. On arrival, pt lying in bed . Pt highly anxious on exam, tearful. Trouble word finding, tremors noted. Pt denies narcotic use prior to hospitalization. Patient states she is upset as she is going through a divorce. Active listening and support provided. States she is afraid to use available PRN medications d/t being labeled as an addict. Pt explainsshe had difficulty working with PT d/t pain. Tolerating diet, denies n/v. Notified by patient visitor in private that patient has problems with addiction which includes pills and alcohol. States she also has medications in her purse, notified patient's RN. Consult for ADM placed. Patient educated on pain regimen, aware that oxycodone po, hydromorphone IV, methocarbamol are PRN and patient must ask for these medications when needed. Educated patient to utilize oral pain medications as first line and reserve IV pain medications for severe breakthrough pain. Realistic pain control discussed with patient: Not all pain will be taken away, but pain should be tolerable/manageable with current regimen. Pt instructed to have staff page APS if pain becomes uncontrolled when utilizing present regimen. Pt agreeable, denies further questions. PMH reviewed below Pain Location: Back Aggravating Factors: Moving Sedation score: 1: Awake and alert Pain Severity: severe Pain Quality: tender Alleviating Factors: Rest/Pain medications Pain Management: n/a The patient's medical history and physical assessment, medications, allergies, patient's current medical condition, imaging, and labs were reviewed as part of this consultation. [x] Patient's Medications have been reviewed. [x] Patient's OARRS report (PDMP) have been reviewed. Social History Tobacco Use Smoking Status Former Packs/day: 0.50 Years: 15.00 Additional pack years: 0.00 Total pack years: 7.50 Types: Cigarettes Quit date: 06/04/2005 Years since quittin.1 Smokeless Tobacco Never Social History Substance and Sexual Activity Alcohol Use Not Currently Social History Substance and Sexual Activity Drug Use No Objective Findings: Vital signs: Blood pressure 101/61, pulse 104, temperature 36.4 C (97.6 F), temperature source Temporal, resp. rate 20, SpO2 95%. Allergies: Bee pollen, Cat hair extract, Dust mite extract, Penicillins, Pollen extract, and Seasonal ic [cholestatin] Past Medical History: Diagnosis Date 2018 novel coronavirus disease (COVID-19) Alcohol dependence with uncomplicated withdrawal (HCC) 07/07/2020 Allergic Anxiety Arthritis Asthma Bronchiectasis (HCC) COPD exacerbation (HCC) 10/24/2019 Depression Diaphragm paralysis Diastolic heart failure (HCC) Dizziness 11/09/2020 Dvt femoral (deep venous thrombosis) (HCC) right...was on blood thinners after broken ankle have been off thinners for a few years Fall 11/21/2020 GERD (gastroesophageal reflux disease) Hypertension Kidney disease Kidney failure 01/09/2019 Kidney stone Obesity Oxygen decrease Currently on Home oxygen, uses with exertion Pulmonary hypertension (HCC) Pulmonary hypertension (HCC) Weakness 11/21/2020 Past Surgical History: Procedure Laterality Date ABDOMINAL SURGERY ADENOIDECTOMY ANKLE SURGERY Right 07/19/2021 APPENDECTOMY 2003 BACK SURGERY CHOLECYSTECTOMY 2004 EXTREMITY SURGERY Left 07/2021 elbow FRACTURE SURGERY HERNIA REPAIR 1972 JOINT REPLACEMENT Bilateral hips LUMBAR DISC SURGERY LUMBAR DISC SURGERY N/A 08/09/2023 REMOVAL HARDWARE LUMBAR 3/4/5, LAMINECTOMY LUMBAR 2, FUSION THORACIC 11-LUMBAR 3, INSTRUMENTATION THORACIC 11-LUMBAR 5, ALLOGRAFT, BONE MORPHOGENETIC PROTEIN TENDON RELEASE Right Right arm TONSILLECTOMY TONSILLECTOMY (HISTORICAL) 1966 TOTAL ABDOMINAL HYSTERECTOMY 2001 Family History Problem Relation Name Age of Onset Mental illness Mother Jhoana Cancer Mother Jhoana pancreatic Alcohol abuse Mother Jhoana Depression Mother Jhoana High Blood Pressure Father eGronimo Cancer Father Geronimo colon Alcohol abuse Father Geronimo Hypertension Father Geronimo Colon cancer Father Geronimo Alcohol abuse Sister Cr Alcohol abuse Brother Noah Patient Active Problem List Diagnosis Hypokalemia Edema of lower extremity Diaphragm dysfunction Stage 1 chronic kidney disease Chronic hypoxemic respiratory failure (HCC) Unspecified mood (affective) disorder (HCC) GERD (gastroesophageal reflux disease) Arthropathy of multiple sites Asthma Chronic insomnia GENNARO (obstructive sleep apnea) Primary osteoarthritis of right hip DDD (degenerative disc disease), lumbar Lumbar scoliosis History of right hip replacement Essential hypertension Hyperlipidemia Current moderate episode of major depressive disorder without prior episode (HCC) Dependent edema Anxiety Tremor 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) Other pancytopenia (CMS/HCC) (HCC) Hypertensive heart and chronic kidney disease with heart failure and stage 1 through stage 4 chronic kidney disease, or unspecified chronic kidney disease (HCC) Bimalleolar fracture Forgetfulness Closed fracture of proximal phalanx of toe of left foot Personal history of COVID-19 Postoperative complication Subluxation of right ankle joint Morbid (severe) obesity due to excess calories (HCC) Ulcerative colitis, unspecified, without complications (HCC) Hypoxemia Colitis Nausea Urinary frequency Bronchitis Hematoma (nontraumatic) of breast Weakness of both lower extremities Ataxia Lumbar radiculopathy Review of Systems Constitutional: Negative for chills and fever. HENT: Negative for trouble swallowing. Eyes: Negative for visual disturbance. Respiratory: Negative for shortness of breath. Cardiovascular: Negative for chest pain. Gastrointestinal: Negative for abdominal pain, nausea and vomiting. Musculoskeletal: Positive for back pain. Negative for arthralgias. Skin: Positive for wound (surgical). Neurological: Positive for tremors. Negative for dizziness and headaches. Psychiatric/Behavioral: Negative for confusion. The patient is not nervous/anxious. Physical Exam Vitals and nursing note reviewed. Constitutional: General: She is not in acute distress. Appearance: Normal appearance. HENT: Head: Normocephalic and atraumatic. Eyes: General: Vision grossly intact. Cardiovascular: Rate and Rhythm: Tachycardia present. Pulmonary: Effort: Pulmonary effort is normal. Comments: O2 NC Abdominal: Palpations: Abdomen is soft. Musculoskeletal: General: Tenderness (lumbar surgical) present. Normal range of motion. Skin: General: Skin is warm and dry. Neurological: Mental Status: She is alert and oriented to person, place, and time. Psychiatric: Mood and Affect: Mood normal. Behavior: Behavior normal. PAGING: The Acute Pain Service providers are available exclusively via [employer]. [facility] does not utilize pagers. [employer] Work Phone: [phone] NoteOrthopaedic Spine Progress Note Name: Alfie Hogan Date of : 1960 Age: 62 y.o. Admission Date/Time: 08/09/2023 7:14 AM Assessment: Alfie Hogan is a 62 y.o. female s/p T11-L3 PSF, L2 lami, JEAN L3-L5 08/08 Plan: -Operative plans: No further plans for surgery this admission -Weight bearing: RLE: WBAT LLE: WBAT RUE: WBAT LUE: WBAT -Range of motion parameters: ROM as tolerated -Immobilization: No immobilization needed -Consults: Internal medicine consult for medical management -Antibiotics: ancef until lumbar drain removed, then home PO duricef for 10 days -Dressings: Keep bandage clean dry and intact for 7-10 days post operatively, then ok to leave open to air if incision is without drainage. -Other: Drain care: ortho team will pull when appropriate. Record output every shift. -Diet: no restrictions from ortho standpoint -Labs: CBC & BMP x 2 days post op -PT/OT -PT recommended outpatient/post discharge?: Yes, for basic ADLs -Medical management, dvt ppx and pain control per primary -DVT ppx recommended?: SCDs and ambulation -Follow-up with Dr Bean in 2 weeks -Ortho primary team. Dispo: pending Subjective: Patient reports back pain misti-incisional he. She denies new numbness and tingling in bilateral lower extremities. She states that her prior numbness and pain to her bilateral lower extremities has slightly improved since surgery. She denies fever, chills, shortness of breath. She is tolerating diet. Objective Most Recent Vitals: Vitals: 08/10/23 0048 08/10/23 0051 08/10/23 0508 08/10/23 0800 BP: (!) 84/66 108/60 98/78 101/61 BP Location: Right arm Right arm Right arm Patient Position: Sitting Sitting Lying Pulse: 104 111 111 104 Resp: 20 Temp: 36.6 ?C (97.8 ?F) 36.7 ?C (98 ?F) 36.4 ?C (97.6 ?F) TempSrc: Temporal Temporal Temporal SpO2: 94% 96% 95% Intake/Output last 24 hours: I/O last 3 completed shifts: In: 1700 [P.O.:500; I.V.:1200] Out: 1060 [Urine:300; Blood:200] No intake/output data recorded. Recent Labs 08/10/23 0115 WBC 5.3 HGB 7.6* HCT 24.7* MCV 89.8 Recent Labs 08/10/23 0115 NA 132* K 4.1 CL 99 CO2 22 Gen: No acute distress. Alert and oriented Neck: supple Chest: Normal respiratory effort. Unlabored breathing Heart:: Regular rate Abd: Soft, non-tender, non-distended Extremity: Lower Extremity Motor: HF Q TA EHL GSC Right 3 4 5 5 5 Left 4 4 5 5 5 Lower extremity sensation to light touch: L2 L3 L4 L5 S1 Right Intact Intact Intact Intact Intact Left Intact Intact Intact Intact Intact Lower extremity pulses: DP PT Right 2+ 2+ Left 2+ 2+ Wound: Dressing CDI. No evidence of hematoma. Drain w/ SS output in canister Samantha Oliver MD 08/10/2023 11:47 [facility] [id number] Consult note* Tessie Polanco MD - 08/09/2023 6:20 PM ESTAssociated Order(s): IP CONSULT TO HOSPITALIST Images from the original note were not included. Hospital Medicine Consult Patient - Alfie Hogan, Age - 62 y.o. - 1960 Room Number - @ROOMBEDREFRESH@ Consulting - Brandon Bean MD [facility] Phys[id number] Date of Admission - 08/09/2023 7:14 AM Hospital Day - 0 Reason for Consult: Medical Management HISTORY OF PRESENT ILLNESS: Alfie is a 62 y.o. female pmhx hypertension, chronic respiratory failure due to COPD, pulmonary hypertension on 3 L of oxygen at baseline, CHF, obstructive sleep apnea, hyperlipidemia, anxiety/depression admitted for elective lumbar laminectomy with hardware removal, fusion thoracic 11-L3 with allograft Internal medicine service consulted for med management Patient seen resting comfortably in bed, pain well-controlled. Past Medical History: Past Medical History: Diagnosis Date 2019 novel coronavirus disease (COVID-19) Alcohol dependence with uncomplicated withdrawal (HCC) 07/07/2020 Allergic Anxiety Arthritis Asthma Bronchiectasis (HCC) COPD exacerbation (HCC) 10/24/2019 Depression Diaphragm paralysis Diastolic heart failure (HCC) Dizziness 11/09/2020 Dvt femoral (deep venous thrombosis) (HCC) right...was on blood thinners after broken ankle have been off thinners for a few years Fall 11/21/2020 GERD (gastroesophageal reflux disease) Hypertension Kidney disease Kidney failure 01/09/2019 Kidney stone Obesity Oxygen decrease Currently on Home oxygen, uses with exertion Pulmonary hypertension (HCC) Pulmonary hypertension (HCC) Weakness 11/21/2020 Past Surgical History: Past Surgical History: Procedure Laterality Date ABDOMINAL SURGERY ADENOIDECTOMY ANKLE SURGERY Right 07/19/2021 APPENDECTOMY 2003 BACK SURGERY CHOLECYSTECTOMY 2004 EXTREMITY SURGERY Left 07/2021 elbow FRACTURE SURGERY HERNIA REPAIR 1972 JOINT REPLACEMENT Bilateral hips LUMBAR DISC SURGERY LUMBAR DISC SURGERY N/A 08/09/2023 REMOVAL HARDWARE LUMBAR /4/5, LAMINECTOMY LUMBAR 2, FUSION THORACIC 11-LUMBAR 3, INSTRUMENTATION THORACIC 11-LUMBAR 5, ALLOGRAFT, BONE MORPHOGENETIC PROTEIN TENDON RELEASE Right Right arm TONSILLECTOMY TONSILLECTOMY (HISTORICAL) 1966 TOTAL ABDOMINAL HYSTERECTOMY 2002 Medications: acetaminophen, 650 mg, Oral, q6h carvedilol, 3.125 mg, Oral, qPM ceFAZolin, 2,000 mg, IntraVENous, q8h dexAMETHasone, 6 mg, IntraVENous, q6h mometasone-formoterol, 2 puff, Inhalation, BID [START ON 08/10/2023] pantoprazole, 40 mg, Oral, q AM rosuvastatin, 40 mg, Oral, Nightly sodium chloride 0.9%, 10 mL, IntraVENous, 2 times per day trospium, 20 mg, Oral, BID lactated Ringer's, 50 mL/hr, Last Rate: 50 mL/hr (08/09/23 173) PRN medications: albuterol, HYDROmorphone OR HYDROmorphone, naloxone, ondansetron ODT OR ondansetron, oxyCODONE OR oxyCODONE, polyethylene glycol (PEG) 3350, sodium chloride, sodium chloride 0.9% Allergies: Bee pollen, Cat hair extract, Dust mite extract, Penicillins, Pollen extract, and Seasonal ic [cholestatin] Social History: Social History Socioeconomic History Marital status: Spouse name: Not on file Number of children: Not on file Years of education: Not on file Highest education level: Not on file Occupational History Not on file Tobacco Use Smoking status: Former Packs/day: 0.50 Years: 15.00 Additional pack years: 0.00 Total pack years: 7.50 Types: Cigarettes Quit date: 06/04/2005 Years since quittin.1 Smokeless tobacco: Never Vaping Use Vaping Use: Never used Substance and Sexual Activity Alcohol use: Not Currently Drug use: No Sexual activity: Yes Partners: Male control/protection: Female Sterilization Other Topics Concern Not on file Social History Narrative Not on file Social Determinants of Health Financial Resource Strain: Low Risk (06/02/2022) Overall Financial Resource Strain (CARDIA) Difficulty of Paying Living Expenses: Not hard at all Food Insecurity: No Food Insecurity (06/02/2022) Hunger Vital Sign Worried About Running Out of Food in the Last Year: Never true Ran Out of Food in the Last Year: Never true Transportation Needs: No Transportation Needs (06/02/2022) PRAPARE - Transportation Lack of Transportation (Medical): No Lack of Transportation (Non-Medical): No Physical Activity: Not on file Stress: Not on file Social Connections: Not on file Intimate Partner Violence: Not At Risk (08/09/2023) Humiliation, Afraid, Rape, and Kick questionnaire Fear of Current or Ex-Partner: No Emotionally Abused: No Physically Abused: No Sexually Abused: No Housing Stability: Not on file Family History: @FAMHXNH@ REVIEW OF SYSTEMS: 10 point ROS obtained, as per HPI, otherwise NEG Physical Exam: Vitals: BP 91/69 Pulse 95 Temp 36.5 C (97.7 F) (Temporal) Resp 18 SpO2 100% BMI Classification: Morbidly Obese (>40.0) Pulse Ox: SpO2 Av % Min: 96 % Max: 100 % Supplemental O2: O2 Flow Rate (L/min): 3 L/min General appearance: No apparent distress, appears stated age and cooperative with exam. HEENT: Eyes: No scleral icterus,no pallor Oral: Tongue is semi-moist Cardiovascular: S1/S2 heard, RRR Respiratory: Clear to auscultation bilaterally Abdomen: Soft, non-tender, non-distended bowel sounds positive,no mass palpable Extremity: no peripheral edema Neurology:no focal neurological deficits,Awake , alert LABS: CBC: No results for input(s): WBC, RBC, HGB, HCT, MCV, RDW, PLT in the last 72 hours. BMP:@LABRCNT(NA:3,K:3,CL:3,CO2:3,BUN:3,CREATININE:3,GLUCOSE:3,CALCIUM :3,ANIONGAP:3)@ LIVER PROFILE:No results for input(s): AST, ALT, BILITOT, ALKPHOS, PROT in the last 72 hours. No lab exists for component: LABALBU PT/INR: No results for input(s): PROTIME, INR in the last 72 hours. CARDIAC ENZYMES: No results for input(s): TROPONINI in the last 72 hours. Procalcitonin: No results found for: PROCAL Urine Culture: No results found for this or any previous visit. IMAGING: See report Assessment Acute, acute on chronic, unstable/uncontrolled chronic problems/diagnoses: Spinal stenosis lumbar region s/p lumbar laminectomy with fusion and allograft on 08/08 Stable chronic problems affecting care, new non-acute diagnoses: Hypertension COPD Pulmonary hypertension Chronic respiratory failure on 3 L of oxygen from about Obstructive sleep apnea on CPAP Anxiety/depression CHF not exacerbation CKD mild GERD Plan Blood pressure noted to be low, hold home Coreg resume when BP permits Continue oxygen at 3 L at baseline CPAP at night pain control, drain care per primary/neurosurgery SCD for DVT prophylaxis Monitor hemoglobin postoperatively Labs ordered for AM Encourage early ambulation, incentive spirometer DVT/GI prophylaxis Home medication was restarted Patient was informed about all work-up treatment plan Discussed with nursing staff -see below for additional orders; further recommendations to follow Orders Placed This Encounter Procedures FL GUIDANCE OR USE ONLY - NON RESULTABLE Potassium with Mg Reflex Protime-INR Potassium Basic metabolic panel CBC auto differential Adult diet Regular Vital Signs Place sequential compression device Drain Suction Instructions Insert indwelling urinary catheter Remove indwelling urinary catheter per Nurse Driven Protocol Bladder scan Straight cath Inpatient consult to Anesthesiology - Acute Pain Service--ANESTHESIA - ACUTE PAIN SERVICE Inpatient consult to Hospitalist--[facility] OT eval and treat PT eval and treat Initiate Oxygen Therapy Protocol Admit to inpatient CAUTI Precautions Thank you for allowing us to participate in the care and management of this patient. NOTE: This report was transcribed using voice recognition software. Every effort was made to ensureaccuracy; however, inadvertent computerized electrotherapist errors may be present. TESSIE POLANCO MD, MD Division of Hospitalist Medicine [facility] [employer] Phone: [phone] NotePatient Name: Alfie Hogan Date of : 1960 Date: 08/14/23 Discharge Summary Admit date: 08/09/2023 Discharge date and time: 08/13/2023 10:30 PM Admitting Physician: Brandon Bean MD Admission Diagnoses: Lumbar radiculopathy Discharge Diagnoses: Lumbar radiculopathy thrombocytopenia Problem List: Principal Problem: Lumbar radiculopathy Active Problems: COPD exacerbation (HCC) There is no height or weight on file to calculate BMI. Operative Procedures: Procedure(s) and Anesthesia Type: * REMOVAL HARDWARE LUMBAR 3/4/5, LAMINECTOMY LUMBAR 2, FUSION THORACIC 11-LUMBAR 3, INSTRUMENTATION THORACIC 11-LUMBAR 5, ALLOGRAFT, BONE MORPHOGENETIC PROTEIN - General Hospital Course: The patient was admitted for the above procedure. After undergoing the above procedure without complications, the patient recovered well in PACU. The patient progressed with physical therapy and met all goals prior to discharge. The patient was tolerating a diet and had their pain controlled prior to discharge. The patient was d/c in stable condition. Disposition: per CM/SW Discharge Medications: Medication List START taking these medications cefadroxil 500 MG capsule Commonly known as: Duricef Take 1 capsule (500 mg) by mouth 2 times daily for 10 days. docusate sodium 100 MG capsule Commonly known as: Colace Take 1 capsule (100 mg) by mouth 2 times daily for 10 days. oxyCODONE-acetaminophen 5-325 MG tablet Commonly known as: Percocet Take 1 tablet by mouth every 4 hours as needed for severe pain (7-10) for up to 7 days. temazepam 15 MG capsule Commonly known as: Restoril Take 1 capsule (15 mg) by mouth Nightly. CONTINUE taking these medications albuterol 108 (90 Base) MCG/ACT inhaler Commonly known as: Ventolin HFA Inhale 2 puffs every 4 hours as needed for wheezing or shortness of breath. Dulera 100-5 MCG/ACT inhaler Generic drug: mometasone-formoterol INHALE 2 PUFFS BY MOUTH EVERY MORNING AND INHALE 2 PUFFS EVERY EVENING NON FORMULARY oxygen gas Commonly known as: O2 pantoprazole 40 MG EC tablet Commonly known as: ProtoNix Take 1 tablet (40 mg) by mouth every morning. potassium chloride CR 20 MEQ ER tablet Commonly known as: Klor-Con M20 TAKE 1 TABLET BY MOUTH TWICE A DAY *DO NOT CRUSH OR CHEW rosuvastatin 40 MG tablet Commonly known as: Crestor Take 1 tablet (40 mg) by mouth Nightly. trospium 20 MG tablet Commonly known as: Sanctura TAKE 1 TABLET BY MOUTH TWICE A DAY STOP taking these medications carvedilol 3.125 MG tablet Commonly known as: Coreg ASK your doctor about these medications FLUoxetine 40 MG capsule Commonly known as: PROzac take 1 capsule by mouth once daily hydrOXYzine pamoate 50 MG capsule Commonly known as: Vistaril take 1 capsule by mouth every 8 hours if needed rivastigmine 1.5 MG capsule Commonly known as: Exelon TAKE 1 CAPSULE BY MOUTH TWICE A DAY traZODone 150 MG tablet Commonly known as: Desyrel take 1 tablet by mouth nightly Where to Get Your Medications You can get these medications from any pharmacy Bring a paper prescription for each of these medications cefadroxil 500 MG capsule docusate sodium 100 MG capsule oxyCODONE-acetaminophen 5-325 MG tablet temazepam 15 MG capsule Patient Instructions: The patient will notify the office for any increased bleeding, drainage, or progressively worsening pain, or other concerning symptoms. They have been instructed to report to the emergency room immediately for any chest pain or shortness of breath. Activity Precautions: WBAT. Work on obtaining range of motion as discussed in the discharge instructions. Patient was provided with appropriate DVT prophylactic medication as well as appropriate analgesia medication. Wound Care: -See discharge instructions Follow-up visit with Dr. Bean as scheduled. Signed: Caroline Downey MD 08/14/2023 4:04 [facility] [id number] NotePatient: Kayce Hogan Procedure Summary Date: 08/09/23 Room / Location: [address] Operating Room Anesthesia Start: 943 Anesthesia Stop: 141 Procedure: REMOVAL HARDWARE LUMBAR 3/4/5, LAMINECTOMY LUMBAR 2, FUSION THORACIC 11-LUMBAR 3, INSTRUMENTATION THORACIC 11-LUMBAR 5, ALLOGRAFT, BONE MORPHOGENETIC PROTEIN (Spine Lumbar) Diagnosis: Scoliosis, unspecified Spinal stenosis, lumbar region without neurogenic claudication (Scoliosis, unspecified [M41.9]) (Spinal stenosis, lumbar region without neurogenic claudication [M48.061]) Surgeons: Brandon Bean MD Responsible Provider: Davian Alford MD Anesthesia Type: general ASA Status: 3 Anesthesia Type: general Vitals Value Taken Time BP 90/63 08/09/23 1417 Temp 97 08/09/23 1420 Pulse 92 08/09/23 1420 Resp 15 08/09/23 1420 SpO2 98 % 08/09/23 1420 Vitals shown include unfiled device data. Anesthesia Post Evaluation Patient location during evaluation: PACU Patient participation: complete - patient participated Level of consciousness: awake and alert Pain management: satisfactory to patient Airway patency: patent Dental Injury: no Cardiovascular status: acceptable, blood pressure returned to baseline and hemodynamically stable Respiratory status: acceptable and spontaneous ventilation Hydration status: euvolemic Nausea/Vomiting: controlled No notable events documented. Patient can be discharged once all PACU criteria has been met.[facility] [id number] NotePatient: Kayce Hogan Procedure Summary Date: 08/09/23 Room / Location: [address] Operating Room Anesthesia Start: 943 Anesthesia Stop: 141 Procedure: REMOVAL HARDWARE LUMBAR 3/4/5, LAMINECTOMY LUMBAR 2, FUSION THORACIC 11-LUMBAR 3, INSTRUMENTATION THORACIC 11-LUMBAR 5, ALLOGRAFT, BONE MORPHOGENETIC PROTEIN (Spine Lumbar) Diagnosis: Scoliosis, unspecified Spinal stenosis, lumbar region without neurogenic claudication (Scoliosis, unspecified [M41.9]) (Spinal stenosis, lumbar region without neurogenic claudication [M48.061]) Surgeons: Brandon Bean MD Responsible Provider: Davian Alford MD Anesthesia Type: general ASA Status: 3 Anesthesia Type: general Vitals Value Taken Time BP 90/63 08/09/23 1417 Temp 97 08/09/23 1420 Pulse 92 08/09/23 1419 Resp 15 08/09/23 1420 SpO2 95 % 08/09/23 1419 Vitals shown include unfiled device data. Anesthesia Post Evaluation Patient location during evaluation: PACU Patient participation: complete - patient participated Level of consciousness: awake and alert Pain management: satisfactory to patient Multimodal analgesia pain management approach Airway patency: patent Two or more strategies used to mitigate risk of obstructive sleep apnea Cardiovascular status: acceptable and hemodynamically stable Respiratory status: acceptable Hydration status: acceptable No notable events documented. MIPS #430 PONV Patient received an inhalational anesthetic (4554F) Patient exhibits three or more risk factors for PONV (4556F) Patient received at leaset 2 prophylactic Rx PONV anti-emtic agents of different classes preop and/or intraop (G9775) MIPS # 424 Perioperative Temperature Management Anesthesia time was 60 minutes or longer (4255F) Anesthesai administered was General (inhalational or TIVA) or Neuraxial block (X0424) At least one body temperature greater than 95.8F/35.5C achieved within the 30 mins immediately prior to or the 15 minutes immediately following anesthesia end time (G9771) MIPS #477 Multimodal Pain Management Not emergent case Patient was administered multimodal pain management (two or more drugs and/or interventions excluding systemic opioids) in the periopeartive period occurring at some time between 6 hours prior to anesthesia start time until discharged from PACU (G2148) [facility] #404 Anesthesiology Smoking Abstinence The patient is not a current smoker (e.g. cigarette, cigar, pipe, e-cigarette/vaping/marijuana) If no stop here (XX404) I completed my handoff to the receiving clinician during which we: 1. Identified the patient 2. Identified the responsible provider 3. Reviewed the pertinent medical history 4. Discussed the surgical course 5. Reviewed intra-op anesthesia management and issues during anesthesia 6. Set expectations for post-procedure period 7. Allowed opportunity for questions and acknowledgement of understanding.[facility]03-07-2024 Hospital Discharge instructions* Discharge Instructions* Caroline Downey MD - 08/09/2023 2:10 PM EST Images from the original note were not included. General Orthopedic Discharge Instructions The following instructions have been prepared to help you when you leave the hospital. These guidelines are for the post surgery period. -Activity & Weightbearing: -Ease into normal activity as tolerated. Avoid heavy lifting/pulling/otherwise strenuous activity. -Wound Care and Hygiene: Keep bandaging clean and dry. Keep bandaging on until your follow-up appointment. Ok to change dressings as needed for saturation. -Pain Control: -Pain control: Alternate Tylenol (acetaminophen) and Ibuprofen every 4 hours. For example, take Tylenol at 7am and Ibuprofen at 11am. Then take Tylenol at 3pm and Ibuprofen at 7pm. Take narcotic medicine (oxycodone, hydrocodone, vicodin, norco, percocet, tramadol, etc.) for breakthrough pain only. Make sure to double check that narcotic pain medicine does not also contain acetaminophen as exceeding greater than 3000mg a day is unsafe. -Use ice as needed to help reduce pain and swelling. Do not put ice directly on the skin. Do not leave ice on for more than 30 minutes at a time. -Medications: -See medication instructions. Please be sure to read and understand the information provided by your pharmacy. Ask your Pharmacist if you have any questions. -Precautions: call your doctor or return to the emergency department IF: -You experience SEVERE worsening of pain in short period of time and/or significant numbness/weakness in extremities or new loss of bowel or bladder function -You develop signs of infection including but not limited to: increasing pain, redness, swelling, purulent drainage, and/or a fever -Anesthesia Precautions: -Do Not operate any vehicle (automobile, bicycle, motorcycle) or power tools for 24 hours. Do Not drink alcoholic beverages for 24 hours. As precaution to prevent post-operative nausea and vomiting, start your diet with liquids, then progress to light foods. If tolerated, resume normal diet. -Follow up visit: -Follow-up in clinic with Dr. Bean for a visit 2 weeks after the date of your surgery. The officecontact information is provided in your paperwork. * Discharge Instr - ANN* Kelsey Monroe RN - 08/11/2023 10:48 AM EST Continuity of Care Form Patient Name: Alfie Hogan : 1960 Admit date: 08/09/2023 Discharge date: 08/13/2023 Code Status Order: No Order Advance Directives: Y Admitting Physician: Brandon Bean MD PCP: Bernardino Moran MD Discharging Nurse: Kelsey Monroe RN Discharging Hospital Unit/Room#: [id number]/[id number] A Discharging Unit Emergency Contact: Extended Emergency Contact Information Primary Emergency Contact: Carlita Palencia Mobile Relation: Sister Past Surgical History: Past Surgical History: Procedure Laterality Date ABDOMINAL SURGERY ADENOIDECTOMY ANKLE SURGERY Right 07/19/2021 APPENDECTOMY 2003 BACK SURGERY CHOLECYSTECTOMY 2004 EXTREMITY SURGERY Left 07/2021 elbow FRACTURE SURGERY HERNIA REPAIR 1972 JOINT REPLACEMENT Bilateral hips LUMBAR DISC SURGERY LUMBAR DISC SURGERY N/A 08/09/2023 REMOVAL HARDWARE LUMBAR 3/4/5, LAMINECTOMY LUMBAR 2, FUSION THORACIC 11-LUMBAR 3, INSTRUMENTATION THORACIC 11-LUMBAR 5, ALLOGRAFT, BONE MORPHOGENETIC PROTEIN TENDON RELEASE Right Right arm TONSILLECTOMY TONSILLECTOMY (HISTORICAL) 1966 TOTAL ABDOMINAL HYSTERECTOMY 2001 Immunization History: Immunization History Administered Date(s) Administered Influenza, Unspecified 03/29/2013, 02/19/2017, 01/28/2018, 03/07/2021 Influenza, injectable, quadrivalent 02/19/2017 Influenza, injectable, quadrivalent, preservative free 02/12/2019, 04/13/2020 Influenza, seasonal, injectable 02/24/2014, 07/17/2022 PPD Test 07/30/2021, 01/07/2022 Pfizer SARS-CoV-2 Vaccination 03/07/2021, 06/14/2021 Pneumococcal Conjugate PCV 13 09/04/2011 Pneumococcal Polysaccharide PPSV23 09/09/2011 Tdap 07/29/2013 Active Problems: Medical Problems Problem List * (Principal) Lumbar radiculopathy 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) Other pancytopenia (CMS/HCC) (HCC) Hypertensive heart and chronic kidney disease with heart failure and stage 1 through stage 4 chronic kidney disease, or unspecified chronic kidney disease (HCC) Bimalleolar fracture Forgetfulness Closed fracture of proximal phalanx of toe of left foot Personal history of COVID-19 Postoperative complication Subluxation of right ankle joint Morbid (severe) obesity due to excess calories (HCC) Ulcerative colitis, unspecified, without complications (HCC) Nausea Urinary frequency Bronchitis Hematoma (nontraumatic) of breast Weakness of both lower extremities Ataxia Hypokalemia Edema of lower extremity Diaphragm dysfunction Stage 1 chronic kidney disease Chronic hypoxemic respiratory failure (HCC) Unspecified mood (affective) disorder (HCC) GERD (gastroesophageal reflux disease) Arthropathy of multiple sites Asthma Chronic insomnia GENNARO (obstructive sleep apnea) Overview Signed 03/20/2022 12:29 PM by Interface, Incoming Problems- [facility] Conversion on CPAP Primary osteoarthritis of right hip DDD (degenerative disc disease), lumbar Lumbar scoliosis History of right hip replacement Essential hypertension Hyperlipidemia Current moderate episode of major depressive disorder without prior episode (HCC) Dependent edema Anxiety Tremor Hypoxemia Colitis Isolation/Infection: No active isolations No active infections Nurse Assessment: Last Vital Signs: BP 98/76 Pulse 98 Temp 36.6 C (97.8 F) Resp 16 SpO2 98% Last documented pain score (0-10 scale): Last Weight: Wt Readings from Last 1 Encounters: 08/02/23 112 kg (247 lb) Mental Status: ANN Patient Mental Status: oriented and disoriented at times IV Access: ANN IV Access: None Nursing Mobility/ADLs: Walking Minimal assistance Transfer Minimal assistance Bathing Minimal assistance Dressing Minimal assistance Toileting Minimal assistance Feeding Minimal assistance Vehicle Operator Minimal assistance Med Delivery yes Wound Care Documentation and Therapy: Wound/Incision 08/09/23 Incision Back Midline (Active) Site Assessment Unable to assess 08/10/23 0340 Misti-Wound Assessment Clean;Dry;Intact 08/09/23 1615 Closure Unable to assess 08/09/23 1615 Drainage Amount Small 08/10/232035 Treatments Cleansed;Irrigation;Site care 08/10/23 1720 Primary Dressing Dry dressing 08/10/232035 Dressing Status Reinforced 08/10/232035 Number of days: 2 Elimination: Continence: Bowel: yes Bladder: yes Urinary Catheter: None Colostomy/Ileostomy/Ileal Conduit: None Date of Last BM: 08/11/23 Intake/Output Summary (Last 24 hours) at 08/11/2023 1048 Last data filed at 08/11/2023 0808 Gross per 24 hour Intake 3354 ml Output 1650 ml Net 1704 ml I/O last 3 completed shifts: In: 3950 [P.O.:2350; I.V.:1600] Out: 1860 [Urine:1500; Drains:75] Safety Concerns: at risk for falls Impairments/Disabilities: none Nutrition Therapy: Current Nutrition Therapy: Oral diet: general Routes of Feeding: oral Liquids: thin liquids Daily Fluid Restriction: no Last Modified Barium Swallow with Video (Video Swallowing Test): not done Treatments at the Time of Hospital Discharge: Respiratory Treatments: PRN Oxygen Therapy: is on oxygen at 2 L/min per nasal cannula. Ventilator: No ventilator support Rehab Therapies: physical therapy and occupational therapy Weight Bearing Status/Restrictions: no restriction Other Medical Equipment (for information only, NOT a DME order): bedside commode Other Treatments: N/A Patient's personal belongings (please select all that are sent with patient): glasses and cell phone, belt changer, 2 belonging bags with misc items, efraín MONTES SIGNATURE: MANAGEMENT/SOCIAL WORK SECTION Inpatient Status Date: 08/09/2023 Readmission Risk Assessment Score: @READMISSIONRISKDETAILS@ Discharging to Facility/ Agency Name: [facility] Address: [address] [place], [place] [address] [address] Fax: Dialysis Facility (if applicable) Name: Address: Dialysis Schedule: Phone: Fax: Card Fixer/Supervisor Plate Forming signature: ICIAN SECTION Prognosis: good Condition at Discharge: stable Rehab Potential (if transferring to Rehab): good Recommended Labs or Other Treatments After Discharge: n/a Physician Certification: I certify the above information and transfer of Alfie Hogan is necessary for the continuing treatment of the diagnosis listed and that she requires senior living facility for less than 30 days. Update Admission H&P: No change in H&P PHYSICIAN SIGNATURE: documented in this [facility]03-07-2024 NotePeripheral IV Date/Time: 08/09/2023 10:30 AM Placement Needle size: 18 G Laterality: right Location: forearm Local anesthetic: none Site prep: alcohol Technique: anatomical landmarks Attempts: [address] [place], [place] [id number] NoteAirway Date/Time: 08/09/2023 9:52 AM Urgency: scheduled Airway not difficult General Information and Staff Patient location during procedure: Procedural Resident/MEDIA MONITOR: Eunice Holbrook APRN - VIVIAN Performed: SRNA Indications and Patient Condition Indications for airway management: anesthesia Sedation level: Asleep Preoxygenated: yes Patient position: sniffing MILS maintained throughout Mask difficulty assessment: 1 - vent by mask Final Airway Details Final airway type: endotracheal airway Successful airway: ETT Cuffed: yes Successful intubation technique: video laryngoscopy Facilitating devices/methods: intubating stylet Blade: Hemphill scope Blade size: #3 ETT size (mm): 7.0 Cormack-Lehane Classification: grade I - full view of glottis Placement verified by: capnometry Measured from: lips ETT to lips (cm): 20 Number of attempts at approach: [address] [place], [place] [id number] Note Peripheral IV Date/Time: 08/09/2023 10:14 AM Placement Needle size: 18 G Laterality: right Location: forearm Local anesthetic: none Site prep: alcohol Technique: anatomical landmarks Attempts: [address] [place], [place] [id number] Note* Op Note - Brandon Bean MD - 08/09/2023 9:44 AM EST OPERATIVE NOTE Patient Name: Alfie Hogan : 1960 DATE OF PROCEDURE: 08/09/2023 SURGEON: BRANDON BEAN MD PREOPERATIVE DIAGNOSES: Status postlaminectomy and fusion, stenosis, scoliosis POSTOPERATIVE DIAGNOSES: Same PROCEDURE: Removal hardware L3-4-5 inspection fusion mass L3-4-5 requiring no repeat fusion laminectomy L2 fusion T11-T12 L1-L2-L3 instrumentation T11-L4 allograft bone nonstructural use of IntraOp O-arm Stealth navigation for insertion of hardware morbid obesity. This person has a BMI greater than40 this doubling to tripled in the length of the time of hardware potentially increasing risk potentially decreasing outcomes INDICATION FOR PROCEDURE: Status post surgery junctional level breakdown and stenosis scoliosis DESCRIPTION OF PROCEDURE: Patient was taken the operating room timeout was done for patient procedure. It should be noted this was a revision surgery so we had to dissect through the old incision we had to dissect through between skin scar fat and scar there was her previous fusion mass which is very robust we had to dissect that out we did take part of that Part of the fusion down remove the hardware thus doubling with the time of surgery potentially increasing risk potentially decreasing outcomes and the use of the Stealth O-arm hide to be used for insertion of hardware due to this. Should be noted this patient has a BMI greater than 40 at double the length to tripled the length of time with surgery potentially increasing risk potentially decreasing outcomes reduce after people to flip prepped and draped in head pad extra body parts made using Ochoa table it is used extra long instruments as well for this Skin incision was made through the old incision recently that incision cephalad.. We dissected downto the copious adipose tissue to the hardware we dissected the hardware out of L3 L4-5 inspected the fusion mass there was noted to be very solid. We did take some of the fusion down superiorly off the screw heads. We removed the hardware en bloc. We further inspected the fusion mass noted to be very solid. We dissected out to L1 T12 and T11 including the bilateral transverse processes at L1 and L2 and will and the fusion mass at L3. Laminectomy was carried out at L2 with bur rongeur and Kerrisons bilateral foraminotomies L2-3 carried out Kerrisons. This decompressing the bilateral exiting [id number] roots which were free. At this point in time a spinous process clamp was put on the spinous process of T12 and IntraOp CAT scan was taken. Once this was done we identified the appropriate levels. The IntraOp CAT scan was coordinated with the IntraOp Stealth system. Instruments were calibratedwith the Stealth system. This point in time with the O-arm Stealth system bilateral pedicle screws were put in at T11 T12-L1 and L2 with the use of a bur followed by the Stealth instruments to make the pedicle hole, tapped the pedicle hole, inserted appropriate size screw. We reinserted screws at L3 and L4. All screws were appropriate. All screws tested negative an EMG. Rods were cut contoured and assembled between the screws and final tightening carried out we decorticated the lamina of T11 T12-L1 the transverse processes of L1-L2 and the superior part of the fusion mass at L3 and L4. We packed this area with his copious amount of allograft bone nonstructural. Previous to this wound irrigated drain was placed sewn in vancomycin powder put in the wound this accomplished the fusion of T11-T 12 L1-L2-L3 instrumentation T11-T12 L1-L2-L3 and L4. Muscle and deep fascia was closed with 1 Vicryl copious amount of 0 Vicryl sutures were used in the adipose tissue. 2 oh subcu. Dermabond and soha for skin. End of dictation [employer] Phone: 1([phone] 141-806303-07-2024 Note* Op Note - Brandon Bean MD - 08/09/2023 9:44 AM EST OPERATIVE NOTE Patient Name: Alfie Hogan : 1960 DATE OF PROCEDURE: 08/09/2023 SURGEON: BRANDON BEAN MD PREOPERATIVE DIAGNOSES: Status postlaminectomy and fusion, stenosis, scoliosis POSTOPERATIVE DIAGNOSES: Same PROCEDURE: Removal hardware L3-4-5 inspection fusion mass L3-4-5 requiring no repeat fusion laminectomy L2 fusion T11-T12 L1-L2-L3 instrumentation T11-L4 allograft bone nonstructural use of IntraOp O-arm Stealth navigation for insertion of hardware morbid obesity. This person has a BMI greater than40 this doubling to tripled in the length of the time of hardware potentially increasing risk potentially decreasing outcomes INDICATION FOR PROCEDURE: Status post surgery junctional level breakdown and stenosis scoliosis DESCRIPTION OF PROCEDURE: Patient was taken the operating room timeout was done for patient procedure. It should be noted this was a revision surgery so we had to dissect through the old incision we had to dissect through between skin scar fat and scar there was her previous fusion mass which is very robust we had to dissect that out we did take part of that Part of the fusion down remove the hardware thus doubling with the time of surgery potentially increasing risk potentially decreasing outcomes and the use of the Stealth O-arm hide to be used for insertion of hardware due to this. Should be noted this patient has a BMI greater than 40 at double the length to tripled the length of time with surgery potentially increasing risk potentially decreasing outcomes reduce after people to flip prepped and draped in head pad extra body parts made using Ochoa table it is used extra long instruments as well for this Skin incision was made through the old incision recently that incision cephalad.. We dissected downto the copious adipose tissue to the hardware we dissected the hardware out of L3 L4-5 inspected the fusion mass there was noted to be very solid. We did take some of the fusion down superiorly off the screw heads. We removed the hardware en bloc. We further inspected the fusion mass noted to be very solid. We dissected out to L1 T12 and T11 including the bilateral transverse processes at L1 and L2 and will and the fusion mass at L3. Laminectomy was carried out at L2 with bur rongeur and Kerrisons bilateral foraminotomies L2-3 carried out Kerrisons. This decompressing the bilateral exiting [id number] roots which were free. At this point in time a spinous process clamp was put on the spinous process of T12 and IntraOp CAT scan was taken. Once this was done we identified the appropriate levels. The IntraOp CAT scan was coordinated with the IntraOp Stealth system. Instruments were calibratedwith the Stealth system. This point in time with the O-arm Stealth system bilateral pedicle screws were put in at T11 T12-L1 and L2 with the use of a bur followed by the Stealth instruments to make the pedicle hole, tapped the pedicle hole, inserted appropriate size screw. We reinserted screws at L3 and L4. All screws were appropriate. All screws tested negative an EMG. Rods were cut contoured and assembled between the screws and final tightening carried out we decorticated the lamina of T11 T12-L1 the transverse processes of L1-L2 and the superior part of the fusion mass at L3 and L4. We packed this area with his copious amount of allograft bone nonstructural. Previous to this wound irrigated drain was placed sewn in vancomycin powder put in the wound this accomplished the fusion of T11-T 12 L1-L2-L3 instrumentation T11-T12 L1-L2-L3 and L4. Muscle and deep fascia was closed with 1 Vicryl copious amount of 0 Vicryl sutures were used in the adipose tissue. 2 oh subcu. Dermabond and soha for skin. End of dictation [employer] Phone: [phone] 639-667503-07-2024 History and physical note* Caroline Downey MD - 08/09/2023 8:08 AM EST Updated History & Physical The patient's History and Physical of August 02, 2023 was reviewed with the patient and I examined the patient. There was no change. The surgical site was confirmed by the patient and me. Plan: The risks, benefits, expected outcome, and alternative to the recommended procedure have beendiscussed with the patient. Patient understands and wants to proceed with the procedure. 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 We discussed both operative and non operative treatment options and Alfieles Hogan elected to proceed with surgical intervention. I have discussed with Ms. Alfie Hogan the potential complications, limitations, expectations, alternatives, and risksof the proposed surgical procedure. Risks discussed include but are not limited to the risk of infection, iatrogenic injury to normal neurovascular structures, persistent pain and disability, unsightly scar, stiffness, complex regional pain syndrome, malunion, non union, hardware failure, need for hardware removal, loss of limb, myocardial infarction, deep vein thrombosis, pulmonary embolism and even . We also discussed the potential risk of COVID-19 exposure or infection and how it could alter her post operative recovery course. She has had full opportunity to ask her questions. I have answered them all to her satisfaction. I feel that Ms. Alfie Hogan does understand our discussi on today and she is comfortable providing informed consent for the procedure. [facility] [id number] NoteUpdated History & Physical The patient's History and Physical of August 02, 2023 was reviewed with the patient and I examined the patient. There was no change. The surgical site was confirmed by the patient and me. Plan: The risks, benefits, expected outcome, and alternative to the recommended procedure have been discussed with the patient. Patient understands and wants to proceed with the procedure. The patient was consented for REMOVAL HARDWARE LUMBAR 3/4/5, LAMINECTOMY LUMBAR 2, FUSION THORACIC 11-LUMBAR 3, INSTRUMENTATION THORACIC 11-LUMBAR 5, ALLOGRAFT, BONE MORPHOGENETIC PROTEIN I had an extensive discussion with Ms. 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 We discussed both operative and non operative treatment options and Alfie Hogan elected to proceed with surgical intervention. I have discussed with Ms. Alfie Hogan the potential complications, limitations, expectations, alternatives, and risks of the proposed surgical procedure. Risks discussed include but are not limited to the risk of infection, iatrogenic injury to normal neurovascular structures, persistent pain and disability, unsightly scar, stiffness, complex regional pain syndrome, malunion, non union, hardware failure, need for hardware removal, loss of limb, myocardial infarction, deep vein thrombosis, pulmonary embolism and even . We also discussed the potential risk of COVID-19 exposure or infection and how it could alter her post operative recovery course. She has had full opportunity to ask her questions. I have answered them all to her satisfaction. I feel that Ms. Alfie Hogan does understand our discussion today and she is comfortable providing informed consent for the procedure. [facility] [id number] History and physical note* Caroline Downey MD - 08/09/2023 8:08 AM EST Updated History & Physical The patient's History and Physical of August 02, 2023 was reviewed with the patient and I examined the patient. There was no change. The surgical site was confirmed by the patient and me. Plan: The risks, benefits, expected outcome, and alternative to the recommended procedure have beendiscussed with the patient. Patient understands and wants to proceed with the procedure. The patient was consented for REMOVAL HARDWARE LUMBAR 3//5, LAMINECTOMY LUMBAR 2, FUSION THORACIC 11-LUMBAR 3, INSTRUMENTATION THORACIC 11-LUMBAR 5, ALLOGRAFT, BONE MORPHOGENETIC PROTEIN I had an extensive discussion with Ms. 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 We discussed both operative and non operative treatment options and Alfie Hogan elected to proceed with surgical intervention. I have discussed with Ms. Alfie Hogan the potential complications, limitations, expectations, alternatives, and risksof the proposed surgical procedure. Risks discussed include but are not limited to the risk of infection, iatrogenic injury to normal neurovascular structures, persistent pain and disability, unsightly scar, stiffness, complex regional pain syndrome, malunion, non union, hardware failure, need for hardware removal, loss of limb, myocardial infarction, deep vein thrombosis, pulmonary embolism and even . We also discussed the potential risk of COVID-19 exposure or infection and how it could alter her post operative recovery course. She has had full opportunity to ask her questions. I have answered them all to her satisfaction. I feel that Ms. Alfie Hogan does understand our discussi on today and she is comfortable providing informed consent for the procedure. * MARKIE Torres - 08/02/2023 11:00 AM EST Images from the original note were not included. Comprehensive Pre Surgical History and Physical ? Name: Alfie Hogan : 1960 (Age-62 y.o.) Date of Service: Pt seen/examined on 08/02/2023 Procedure Information Date/Time: 08/09/2330 Procedure: REMOVAL HARDWARE LUMBAR3/4/5, LAMINECTOMY LUMBAR2, FUSION [id number] [id number], INSTRUMENTATION [id number], ALLOGRAFT, BONE MORPHOGENETIC PROTEIN (Spine Lumbar) Location: [address] Operating Room Surgeons: Brandon Bean MD Chief Complaint: Scoliosis, unspecified [M41.9] Spinal stenosis, lumbar region without neurogenic claudication [M48.061] ASSESSMENT/PLAN: Patient is considered high risk for this intermediate level 3 risk procedure/surgery. 1) Scoliosis, unspecified [M41.9] Spinal stenosis, lumbar region without neurogenic claudication [M48.061] - Managed per surgery - 06/18/23 CBC, CMP, Vit D reviewed - Ordered per PAT Protocol - EKG, PT/INR, A1c, prealbumin, T&S, UA, MRSA - CHG shower kit - Pain consult ordered 2) COPD // Asthma // Bronchiectasis // Respiratory failure // Paralyzed diaphragm - 3 L O2 NC continuous, not currently wearing her O2 - 94% on RA - Continue inhalers - Follows OP with Dr. Padron - Pulmonary clearance 07/10/23 3) Pulmonary HTN - 2019 echo Right ventricle: The cavity size is normal. Systolic function is normal. Right ventricular systolic pressure is within the normal range. - Follows OP pulmonology 4) CHF - Coreg - 2020 echo The estimated ejection fraction is 75%. 5) HTN - Coreg BP Readings from Last 3 Encounters: 08/02/23 95/62 02/15/23 96/53 06/07/22 (!) 156/92 6) CKD - 06/18/23 Cr 1.04 GFR 57 7) GERD - PPI 8) GENNARO - BiPAP 9) HLD - Statin 10) DVT, RLE, remote - Approx in 2019 after broken ankle 11) Fall - Occurred yesterday, mechanical fall, denies syncope - Hit her head, slight ecchymosis on forehead - EOM intact, patient denies nausea, dizziness, headache 12) Obesity - Body mass index is 38.11 kg/m . Visit Type: Pre-Admission Testing Visit Labs Ordered: YES - PER PAT PROTOCOL Sleep Referral Ordered: NO - ALREADY DIAGNOSED WITH GENNARO AND COMPLIANT WITH CPAP Total time spent (which include face to face and non face to face encounters) : 40 minutes Toxic drug monitoring/narrow therapeutic index drug monitoring : # Drug name : n/a # Route administered : n/a # Method of monitoring : n/a PAT Protocol referenced includes: 1. Anesthesia Lab Protocol Orders 2. Perioperative Cardiovascular Risk Assessment 3. Anesthesia Assessment 4. Pain Assessment and Acute Pain Service Consult (if appropriate) 5. Medical Clearance/Consult from Internal Medicine ([facility]) 6. Shower/Wash Order (for designated surgeries) 7. GENNARO Screen and Sleep Clinic Referral (if appropriate) History Of Present Illness: 62 y.o. female who we are asked to see/evaluate by Dr. Bean for pre-operative evaluation prior tothe above procedure. Patient seen by Dr. Collado on 07/05/23 The patient is a 62 year old, right handed female with a past medical history of abdominal pain, acute gastritis, acute renal failure, anxiety, arthritis, asthma, DDD, esophagitis, HPL, HTN, kidney disease, GENNARO, ovarian cyst, phlebitis and thrombophlebitis, tobacco use and urinary calculus who is referred by Dr. Caro for neurosurgical evaluation. Today she states she underwent a prior lumbar fusion in [address] Corrales and noted her symptomswere similar to the ones she endorses today. She reports resolution of symptoms for a few years after surgery. In April-May he low back pain returned and worsened to the point of not being able to ambulate. She has been incontinent of bowel and bladder with no sensation for 2 months. She notes low back pain that radiates into her bilateral gluteal aspects and right groin. Her pain radiatedown the posterior thigh to the ankle. She endorses numbness and tingling to the 1st 3 digits on the right foot and intermittent numbness and tingling down her leg. She endorses right leg weakness that is also pain limited. She denies any recent falls. She is unable to ambulate or stand for more than a few minutes without her back feeling like its going to give out. She participated with physicaltherapy about 8 months ago at [facility] without relief. She has seen pain management and obtained injections in the past, but nothing recent. She was evaluated 5 years ago for a Spinal cord stimulator, but was unable to due to scar tissue. She notes nothing helps her pain and is taking an excessive amount of Aleve a day. ? Denies history of CT, CAD, TIA, CVA Past Medical History: Past Medical History: No date: 2018 novel coronavirus disease (COVID-19) 07/07/2020: Alcohol dependence with uncomplicated withdrawal ([facility]) No date: Allergic No date: Anxiety No date: Arthritis No date: Asthma No date: Bronchiectasis ([facility]) 10/24/2019: COPD exacerbation ([facility]) No date: Depression 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 No date: Diastolic heart failure ([facility]) 11/09/2020: Dizziness No date: Dvt femoral (deep venous thrombosis) ([facility]) Comment: right...was on blood thinners after broken ankle have been off thinners for a few years 11/21/2020: Fall No date: GERD (gastroesophageal reflux disease) No date: Hypertension No date: Kidney disease 01/09/2019: Kidney failure No date: Kidney stone No date: Obesity No date: Oxygen decrease Comment: Currently on Home oxygen, uses with exertion No date: No date: Pulmonary hypertension ([facility]) No date: Pulmonary hypertension ([facility]) 11/21/2020: Weakness Past Surgical History: Past Surgical History: No date: ABDOMINAL SURGERY No date: ADENOIDECTOMY 07/19/2021: ANKLE SURGERY; Right 2003: APPENDECTOMY No date: BACK SURGERY 2004: CHOLECYSTECTOMY 07/2021: EXTREMITY SURGERY; Left Comment: elbow No date: FRACTURE SURGERY 1972: HERNIA REPAIR No date: JOINT REPLACEMENT; Bilateral Comment: hips No date: TENDON RELEASE; Right Comment: Right arm No date: TONSILLECTOMY 1966: TONSILLECTOMY (HISTORICAL) 2001: TOTAL ABDOMINAL HYSTERECTOMY Medications Prior to Admission: Prior to Admission medications Medication Sig Start Date End Date Taking? Authorizing Provider carvedilol (Coreg) 3.125 MG tablet take 1 tablet by mouth every morning and 1 tablet by mouth everyevening with meals 04/16/23 Yes SUZY Barrera CNP Dulera 100-5 MCG/ACT inhaler INHALE 2 PUFFS BY MOUTH EVERY MORNING AND INHALE 2 PUFFS EVERY ZEWNOTS51/4/23 Yes Bernardino Moran MD NON FORMULARY Bipap machine Yes Historical Provider, oxygen (O2) gas Inhale 3 L continuous. via nasal canula Yes Historical Provider, pantoprazole (ProtoNix) 40 MG EC tablet Take 1 tablet (40 mg) by mouth every morning. 06/05/23 Yes Bernardino Moran MD potassium chloride CR (Klor-Con M20) 20 MEQ ER tablet TAKE 1 TABLET BY MOUTH TWICE A DAY *DO NOT CRUSH OR CHEW 05/07/23 Yes Bernardino Moran MD rosuvastatin (Crestor) 40 MG tablet Take 1 tablet (40 mg) by mouth Nightly. 06/05/23 Yes Bernardino Moran MD traZODone (Desyrel) 150 MG tablet take 1 tablet by mouth nightly 05/07/23 Yes SUZY Barrera CNP trospium (Sanctura) 20 MG tablet TAKE 1 TABLET BY MOUTH TWICE A DAY 06/28/23 Yes Bernardino Moran MD albuterol (Ventolin HFA) 108 (90 Base) MCG/ACT inhaler Inhale 2 puffs every 4 hours as needed for wheezing or shortness of breath. 05/15/22 05/15/23 SUZY Bush CNP FLUoxetine (PROzac) 40 MG capsule take 1 capsule by mouth once daily Patient not taking: Reported on 08/02/2023 03/19/23 Bernardino Moran MD hydrOXYzine pamoate (Vistaril) 50 MG capsule take 1 capsule by mouth every 8 hours if needed Patient not taking: Reported on 08/02/2023 02/15/23 Bernardino Moran MD rivastigmine (Exelon) 1.5 MG capsule TAKE 1 CAPSULE BY MOUTH TWICE A DAY Patient not taking: Reported on 08/02/2023 05/07/23 Bernardino Moran MD CHRONIC NARCOTIC USE: No Allergies: Bee pollen, Cat hair extract, Dust mite extract, Oxycodone- acetaminophen, Penicillins, Pollen extract, and Seasonal ic [cholestatin] If patient has opioid allergy, is it okay to take Acetaminophen: Yes Social History: TOBACCO: reports that she quit smoking about 18 years ago. Her smoking use included cigarettes. Shehas a 7.5 pack-year smoking history. She has never used smokeless tobacco. ETOH: reports that she does not currently use alcohol. Social History Substance and Sexual Activity Drug Use No Family History: Family History Problem Relation Name Age of Onset Mental illness Mother Jhoana Cancer Mother Jhoana pancreatic Alcohol abuse Mother Jhoana Depression Mother Jhoana High Blood Pressure Father Geronimo Cancer Father Geronimo colon Alcohol abuse Father Geronimo Hypertension Father Geronimo Colon cancer Father Geronimo Alcohol abuse Sister Cr Alcohol abuse Brother Noah REVIEW OF SYSTEMS: Review of Systems Constitutional: Negative for fatigue and fever. HENT: Negative for congestion. Respiratory: Negative for cough, chest tightness and shortness of breath. Cardiovascular: Negative for chest pain and palpitations. Gastrointestinal: Negative for diarrhea and vomiting. Musculoskeletal: Positive for back pain. Skin: Negative for rash and wound. Neurological: Negative for syncope, weakness and headaches. Psychiatric/Behavioral: Negative for agitation. Physical Exam: Physical Exam Constitutional: Appearance: Normal appearance. HENT: Head: Normocephalic and atraumatic. Nose: Nose normal. Eyes: Extraocular Movements: Extraocular movements intact. Cardiovascular: Rate and Rhythm: Normal rate and regular rhythm. Heart sounds: Normal heart sounds. Pulmonary: Effort: Pulmonary effort is normal. Breath sounds: Normal breath sounds. Musculoskeletal: General: Normal range of motion. Cervical back: Neck supple. Skin: General: Skin is warm and dry. Comments: Slight ecchymosis on forehead Neurological: General: No focal deficit present. Mental Status: She is alert. Psychiatric: Mood and Affect: Mood normal. Behavior: Behavior normal. Vitals: Vitals Value Taken Time BP 95/62 08/02/23 1100 Temp 37.1 C (98.8 F) 08/02/23 1100 Pulse 76 08/02/23 1100 Resp 18 08/02/23 1100 SpO2 94 % 08/02/23 1100 Labs: Lab Results Component Value Date WBC 3.3 (L) 06/07/2022 HGB 11.3 (L) 06/07/2022 HCT 34.7 (L) 06/07/2022 MCV 92.3 06/07/2022 PLT 146 06/07/2022 Lab Results Component Value Date NA 136 11/26/2020 K 3.1 (L) 11/26/2020 CL 100 11/26/2020 CO2 26 06/07/2022 BUN 20 06/07/2022 CREATININE 0.89 06/07/2022 GLUCOSE 92 06/07/2022 CALCIUM 8.9 06/07/2022 PROT 6.1 06/07/2022 ALKPHOS 105 06/07/2022 AST 36 (H) 06/07/2022 ALT 25 06/07/2022 EGFR 74 06/07/2022 Peterson's Simple Cardiac Risk Index: PETERSON'S SIMPLE CARDIAC RISK SCORE: 1 Interpretation: 0 Points Class I 0.5% 1 Point Class II 1.3% 2 Points Class III 3.6% 3+ Points Class IV 9.1% PAT Pain Score: Pain Score: 6 Postop Pain Management Plan (Pain consult ordered?): PACU PAIN CONSULT ORDERED ? EKG: Yes ordered Encounter Date: 08/02/23 ECG 12 lead Result Value Heart Rate 75 QRSD Interval 151 QT Interval 409 QTC Interval 456 P [place] 32 QRS [place] 45 T Wave [place] 3 OH Interval 176 Impression Sinus rhythm Right bundle branch block 08/25/20 EKG reading ECHO and EF:Echo 10/24/2019 1. Technically difficult study. The right heart was not well seen. It did not appear significatly abnormal, but ASHLEY or Cardiac MRI may be better forassessment id clinically indicated. 2. Left ventricle: Systolic function is hyperdynamic by visual assessment. The estimated ejection fraction is 75%. There are no regional wall motion abnormalities. 3. Right ventricle: The cavity size is normal. Systolic function is normal. Right ventricular systolic pressure is within the normal range. 4. No significant valve disease. 5. Aorta: The aorta is normal. 6. Pericardium, extracardiac: There is no pericardial effusion. METS <4 - chronic exertional dyspnea, very limited in activity 2/2 chronic back pain Electronically signed by: MARKIE Torres Date: 08/02/2023 at 11:56 AM documented in this [facility]02-29-2024 NotePatient: Kayce Hogan Procedure Information Date/Time: 08/09/23929 Procedure: REMOVAL HARDWARE LUMBAR3/4/5, LAMINECTOMY LUMBAR2, FUSION [id number], INSTRUMENTATION [id number], ALLOGRAFT, BONE MORPHOGENETIC PROTEIN (Spine Lumbar) Location: [address] Operating Room Surgeons: Brandon Bean MD Past Medical History: Past Medical History: No date: 2018 novel coronavirus disease (COVID-19) 07/07/2020: Alcohol dependence with uncomplicated withdrawal ([facility]) No date: Allergic No date: Anxiety No date: Arthritis No date: Asthma No date: Bronchiectasis ([facility]) 10/24/2019: COPD exacerbation ([facility]) No date: Depression 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 No date: Diastolic heart failure ([facility]) 11/09/2020: Dizziness No date: Dvt femoral (deep venous thrombosis) ([facility]) Comment: right...was on blood thinners after broken ankle have been off thinners for a few years 11/21/2020: Fall No date: GERD (gastroesophageal reflux disease) No date: Hypertension No date: Kidney disease 01/09/2019: Kidney failure No date: Kidney stone No date: Obesity No date: Oxygen decrease Comment: Currently on Home oxygen, uses with exertion No date: No date: Pulmonary hypertension ([facility]) No date: Pulmonary hypertension ([facility]) 11/21/2020: Weakness Past Surgical History: Past Surgical History: No date: ABDOMINAL SURGERY No date: ADENOIDECTOMY 07/19/2021: ANKLE SURGERY; Right 2002: APPENDECTOMY No date: BACK SURGERY 2004: CHOLECYSTECTOMY 07/2021: EXTREMITY SURGERY; Left Comment: elbow No date: FRACTURE SURGERY 1972: HERNIA REPAIR No date: JOINT REPLACEMENT; Bilateral Comment: hips No date: TENDON RELEASE; Right Comment: Right arm No date: TONSILLECTOMY 1966: TONSILLECTOMY (HISTORICAL) 2001: TOTAL ABDOMINAL HYSTERECTOMY Social History: TOBACCO: reports that she quit smoking about 18 years ago. Her smoking use included cigarettes. She has a 7.5 pack-year smoking history. She has never used smokeless tobacco. ETOH: reports that she does not currently use alcohol. Social History Substance and Sexual Activity Drug Use No Family History: Family History Problem Relation Name Age of Onset Mental illness Mother Jhoana Cancer Mother Jhoana pancreatic Alcohol abuse Mother Jhoana Depression Mother Jhoana High Blood Pressure Father Geronimo Cancer Father Geronimo colon Alcohol abuse Father Geronimo Hypertension Father Geronimo Colon cancer Father Geronimo Alcohol abuse Sister Cr Alcohol abuse Brother Noah Screening: Postmenopausal Clinical information reviewed: Tobacco Allergies Meds Med Hx Surg Hx OB Status Fam Hx Soc Hx Physical Exam Airway Mallampati: I TM distance: >3 FB Neck ROM: full Mouth Open: normalendotracheal tube not in place Cardiovascular Dental (+) Missing Pulmonary Abdominal Anesthesia Plan patient is NPO appropriate Any family history or previous problems with anesthesia no ASA 3 general Any family history or previous problems with anesthesia no The patient is not a current smoker. Anesthetic plan and risks discussed with patient. Anesthesia Nobles Considerations 3L NC O2 - patient is noncompliant Pulmonary clearance 07/10/[address] Padron Patient states she has had trouble with intubations in the past. States they need to use a easley blade and a smaller tube. I explained to her that we would use a videoscope for her procedure and updated the cook vacuum kettle in the room. ERAS Type General ERAS GENNARO Screening Labs: Lab Results Component Value Date WBC 3.3 (L) 06/07/2022 HGB 11.3 (L) 06/07/2022 HCT 34.7 (L) 06/07/2022 MCV 92.3 06/07/2022 PLT 146 06/07/2022 Lab Results Component Value Date NA 136 11/26/2020 K 3.1 (L) 11/26/2020 CL 100 11/26/2020 CO2 26 06/07/2022 BUN 20 06/07/2022 CREATININE 0.89 06/07/2022 GLUCOSE 92 06/07/2022 CALCIUM 8.9 06/07/2022 PROT 6.1 06/07/2022 ALKPHOS 105 06/07/2022 AST 36 (H) 06/07/2022 ALT 25 06/07/2022 EGFR 74 06/07/2022 Pain Score: 6 2019 echo 1. Technically difficult study. The right heart was not well seen. It did not appear significatly abnormal, but ASHLEY or Cardiac MRI may be better forassessment id clinically indicated. 2. Left ventricle: Systolic function is hyperdynamic by visual assessment. The estimated ejection fraction is 75%. There are no regional wall motion abnormalities. 3. Right ventricle: The cavity size is normal. Systolic function is normal. Right ventricular systolic pressure is within the normal range. 4. No significant valve disease. 5. Aorta: The aorta is normal. 6. Pericardium, extracardiac: There is no pericardial effusion. No echocardiogram results found for the past 14 days 08/02/23 ECG 12-LEAD (Preliminary) This result has not been signed. Information might be incomplete. Impression Sinus rhythm Right [facility] History and physical note* MARKIE Torres - 08/02/2023 11:00 AM EST Images from the original note were not included. Comprehensive Pre Surgical History and Physical ? Name: Alfie Hogan : 1960 (Age-62 y.o.) Date of Service: Pt seen/examined on 08/02/2023 Procedure Information Date/Time: 08/09/23 0930 Procedure: REMOVAL HARDWARE LUMBAR3/4/5, LAMINECTOMY LUMBAR2, FUSION [id number], INSTRUMENTATION [id number], ALLOGRAFT, BONE MORPHOGENETIC PROTEIN (Spine Lumbar) Location: [facility] OR [address] [place] [address] Operating Room Surgeons: Brandon Bean MD Chief Complaint: Scoliosis, unspecified [M41.9] Spinal stenosis, lumbar region without neurogenic claudication [M48.061] ASSESSMENT/PLAN: Patient is considered high risk for this intermediate level 3 risk procedure/surgery. 1) Scoliosis, unspecified [M41.9] Spinal stenosis, lumbar region without neurogenic claudication [M48.061] - Managed per surgery - 06/18/23 CBC, CMP, Vit D reviewed - Ordered per PAT Protocol - EKG, PT/INR, A1c, prealbumin, T&S, UA, MRSA - CHG shower kit - Pain consult ordered 2) COPD // Asthma // Bronchiectasis // Respiratory failure // Paralyzed diaphragm - 3 L O2 NC continuous, not currently wearing her O2 - 94% on RA - Continue inhalers - Follows OP with Dr. Padron - Pulmonary clearance 07/10/23 3) Pulmonary HTN - 2019 echo Right ventricle: The cavity size is normal. Systolic function is normal. Right ventricular systolic pressure is within the normal range. - Follows OP pulmonology 4) CHF - Coreg - 2019 echo The estimated ejection fraction is 75%. 5) HTN - Coreg BP Readings from Last 3 Encounters: 08/02/23 95/62 02/15/23 96/53 06/07/22 (!) 156/92 6) CKD - 06/18/23 Cr 1.04 GFR 57 7) GERD - PPI 8) GENNARO - BiPAP 9) HLD - Statin 10) DVT, RLE, remote - Approx in 2019 after broken ankle 11) Fall - Occurred yesterday, mechanical fall, denies syncope - Hit her head, slight ecchymosis on forehead - EOM intact, patient denies nausea, dizziness, headache 12) Obesity - Body mass index is 38.11 kg/m . Visit Type: Pre-Admission Testing Visit Labs Ordered: YES - PER PAT PROTOCOL Sleep Referral Ordered: NO - ALREADY DIAGNOSED WITH GENNARO AND COMPLIANT WITH CPAP Total time spent (which include face to face and non face to face encounters) : 40 minutes Toxic drug monitoring/narrow therapeutic index drug monitoring : # Drug name : n/a # Route administered : n/a # Method of monitoring : n/a PAT Protocol referenced includes: 1. Anesthesia Lab Protocol Orders 2. Perioperative Cardiovascular Risk Assessment 3. Anesthesia Assessment 4. Pain Assessment and Acute Pain Service Consult (if appropriate) 5. Medical Clearance/Consult from Internal Medicine ([facility]) 6. Shower/Wash Order (for designated surgeries) 7. GENNARO Screen and Sleep Clinic Referral (if appropriate) History Of Present Illness: 62 y.o. female who we are asked to see/evaluate by Dr. Bean for pre-operative evaluation prior tothe above procedure. Patient seen by Dr. Collado on 07/05/23 The patient is a 62 year old, right handed female with a past medical history of abdominal pain, acute gastritis, acute renal failure, anxiety, arthritis, asthma, DDD, esophagitis, HPL, HTN, kidney disease, GENNARO, ovarian cyst, phlebitis and thrombophlebitis, tobacco use and urinary calculus who is referred by Dr. Caro for neurosurgical evaluation. Today she states she underwent a prior lumbar fusion in [address] Corrales and noted her symptomswere similar to the ones she endorses today. She reports resolution of symptoms for a few years after surgery. In April-May he low back pain returned and worsened to the point of not being able to ambulate. She has been incontinent of bowel and bladder with no sensation for 2 months. She notes low back pain that radiates into her bilateral gluteal aspects and right groin. Her pain radiatedown the posterior thigh to the ankle. She endorses numbness and tingling to the 1st 3 digits on the right foot and intermittent numbness and tingling down her leg. She endorses right leg weakness that is also pain limited. She denies any recent falls. She is unable to ambulate or stand for more than a few minutes without her back feeling like its going to give out. She participated with physicaltherapy about 8 months ago at [facility] without relief. She has seen pain management and obtained injections in the past, but nothing recent. She was evaluated 5 years ago for a Spinal cord stimulator, but was unable to due to scar tissue. She notes nothing helps her pain and is taking an excessive amount of Aleve a day. ? Denies history of CT, CAD, TIA, CVA Past Medical History: Past Medical History: No date: 2019 novel coronavirus disease (COVID-19) 07/07/2020: Alcohol dependence with uncomplicated withdrawal ([facility]) No date: Allergic No date: Anxiety No date: Arthritis No date: Asthma No date: Bronchiectasis ([facility]) 10/24/2019: COPD exacerbation ([facility]) No date: Depression 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 No date: Diastolic heart failure ([facility]) 11/09/2020: Dizziness No date: Dvt femoral (deep venous thrombosis) ([facility]) Comment: right...was on blood thinners after broken ankle have been off thinners for a few years 11/21/2020: Fall No date: GERD (gastroesophageal reflux disease) No date: Hypertension No date: Kidney disease 01/09/2019: Kidney failure No date: Kidney stone No date: Obesity No date: Oxygen decrease Comment: Currently on Home oxygen, uses with exertion No date: No date: Pulmonary hypertension (HCC) No date: Pulmonary hypertension (HCC) 11/21/2020: Weakness Past Surgical History: Past Surgical History: No date: ABDOMINAL SURGERY No date: ADENOIDECTOMY 07/19/2021: ANKLE SURGERY; Right 2003: APPENDECTOMY No date: BACK SURGERY 2004: CHOLECYSTECTOMY 07/2021: EXTREMITY SURGERY; Left Comment: elbow No date: FRACTURE SURGERY 1972: HERNIA REPAIR No date: JOINT REPLACEMENT; Bilateral Comment: hips No date: TENDON RELEASE; Right Comment: Right arm No date: TONSILLECTOMY 1965: TONSILLECTOMY (HISTORICAL) 2001: TOTAL ABDOMINAL HYSTERECTOMY Medications Prior to Admission: Prior to Admission medications Medication Sig Start Date End Date Taking? Authorizing Provider carvedilol (Coreg) 3.125 MG tablet take 1 tablet by mouth every morning and 1 tablet by mouth everyevening with meals 04/16/23 Yes SUZY Barrera CNP Dulera 100-5 MCG/ACT inhaler INHALE 2 PUFFS BY MOUTH EVERY MORNING AND INHALE 2 PUFFS EVERY SDDEDXR12/4/23 Yes Bernardino Moran MD NON FORMULARY Bipap machine Yes Historical Provider, oxygen (O2) gas Inhale 3 L continuous. via nasal canula Yes Historical Provider, pantoprazole (ProtoNix) 40 MG EC tablet Take 1 tablet (40 mg) by mouth every morning. 06/05/23 Yes Bernardino Moran MD potassium chloride CR (Klor-Con M20) 20 MEQ ER tablet TAKE 1 TABLET BY MOUTH TWICE A DAY *DO NOT CRUSH OR CHEW 05/07/23 Yes Bernardino Moran MD rosuvastatin (Crestor) 40 MG tablet Take 1 tablet (40 mg) by mouth Nightly. 06/05/23 Yes Bernardino Moran MD traZODone (Desyrel) 150 MG tablet take 1 tablet by mouth nightly 05/07/23 Yes SUZY Barrera CNP trospium (Sanctura) 20 MG tablet TAKE 1 TABLET BY MOUTH TWICE A DAY 06/28/23 Yes Bernardino Moran MD albuterol (Ventolin HFA) 108 (90 Base) MCG/ACT inhaler Inhale 2 puffs every 4 hours as needed for wheezing or shortness of breath. 05/15/22 05/15/23 Yessi Silver APRN - [facility] FLUoxetine (PROzac) 40 MG capsule take 1 capsule by mouth once daily Patient not taking: Reported on 08/02/2023 03/19/23 Bernardino Moran MD hydrOXYzine pamoate (Vistaril) 50 MG capsule take 1 capsule by mouth every 8 hours if needed Patient not taking: Reported on 08/02/2023 02/15/23 Bernardino Moran MD rivastigmine (Exelon) 1.5 MG capsule TAKE 1 CAPSULE BY MOUTH TWICE A DAY Patient not taking: Reported on 08/02/2023 05/07/23 Bernardino Moran MD CHRONIC NARCOTIC USE: No Allergies: Bee pollen, Cat hair extract, Dust mite extract, Oxycodone- acetaminophen, Penicillins, Pollen extract, and Seasonal ic [cholestatin] If patient has opioid allergy, is it okay to take Acetaminophen: Yes Social History: TOBACCO: reports that she quit smoking about 18 years ago. Her smoking use included cigarettes. Shehas a 7.5 pack-year smoking history. She has never used smokeless tobacco. ETOH: reports that she does not currently use alcohol. Social History Substance and Sexual Activity Drug Use No Family History: Family History Problem Relation Name Age of Onset Mental illness Mother Jhoana Cancer Mother Jhoana pancreatic Alcohol abuse Mother Jhoana Depression Mother Jhoana High Blood Pressure Father Geronimo Cancer Father Geronimo colon Alcohol abuse Father Geronimo Hypertension Father Geronimo Colon cancer Father Geronimo Alcohol abuse Sister Cr Alcohol abuse Brother Noah REVIEW OF SYSTEMS: Review of Systems Constitutional: Negative for fatigue and fever. HENT: Negative for congestion. Respiratory: Negative for cough, chest tightness and shortness of breath. Cardiovascular: Negative for chest pain and palpitations. Gastrointestinal: Negative for diarrhea and vomiting. Musculoskeletal: Positive for back pain. Skin: Negative for rash and wound. Neurological: Negative for syncope, weakness and headaches. Psychiatric/Behavioral: Negative for agitation. Physical Exam: Physical Exam Constitutional: Appearance: Normal appearance. HENT: Head: Normocephalic and atraumatic. Nose: Nose normal. Eyes: Extraocular Movements: Extraocular movements intact. Cardiovascular: Rate and Rhythm: Normal rate and regular rhythm. Heart sounds: Normal heart sounds. Pulmonary: Effort: Pulmonary effort is normal. Breath sounds: Normal breath sounds. Musculoskeletal: General: Normal range of motion. Cervical back: Neck supple. Skin: General: Skin is warm and dry. Comments: Slight ecchymosis on forehead Neurological: General: No focal deficit present. Mental Status: She is alert. Psychiatric: Mood and Affect: Mood normal. Behavior: Behavior normal. Vitals: Vitals Value Taken Time BP 95/62 08/02/23 1100 Temp 37.1 C (98.8 F) 08/02/23 1100 Pulse 76 08/02/23 1100 Resp 18 08/02/23 1100 SpO2 94 % 08/02/23 1100 Labs: Lab Results Component Value Date WBC 3.3 (L) 06/07/2022 HGB 11.3 (L) 06/07/2022 HCT 34.7 (L) 06/07/2022 MCV 92.3 06/07/2022 PLT 146 06/07/2022 Lab Results Component Value Date NA 136 11/26/2020 K 3.1 (L) 11/26/2020 CL 100 11/26/2020 CO2 26 06/07/2022 BUN 20 06/07/2022 CREATININE 0.89 06/07/2022 GLUCOSE 92 06/07/2022 CALCIUM 8.9 06/07/2022 PROT 6.1 06/07/2022 ALKPHOS 105 06/07/2022 AST 36 (H) 06/07/2022 ALT 25 06/07/2022 EGFR 74 06/07/2022 Peterson's Simple Cardiac Risk Index: PETERSON'S SIMPLE CARDIAC RISK SCORE: 1 Interpretation: 0 Points Class I 0.5% 1 Point Class II 1.3% 2 Points Class III 3.6% 3+ Points Class IV 9.1% PAT Pain Score: Pain Score: 6 Postop Pain Management Plan (Pain consult ordered?): PACU PAIN CONSULT ORDERED ? EKG: Yes ordered Encounter Date: 08/02/23 ECG 12 lead Result Value Heart Rate 75 QRSD Interval 151 QT Interval 409 QTC Interval 456 P [place] 32 QRS [place] 45 T Wave [place] 3 OH Interval 176 Impression Sinus rhythm Right bundle branch block 08/25/20 EKG reading ECHO and EF:Echo 10/24/2019 1. Technically difficult study. The right heart was not well seen. It did not appear significatly abnormal, but ASHLEY or Cardiac MRI may be better forassessment id clinically indicated. 2. Left ventricle: Systolic function is hyperdynamic by visual assessment. The estimated ejection fraction is 75%. There are no regional wall motion abnormalities. 3. Right ventricle: The cavity size is normal. Systolic function is normal. Right ventricular systolic pressure is within the normal range. 4. No significant valve disease. 5. Aorta: The aorta is normal. 6. Pericardium, extracardiac: There is no pericardial effusion. METS <4 - chronic exertional dyspnea, very limited in activity 2/2 chronic back pain Electronically signed by: MARKIE Torres Date: 08/02/2023 at 11:56 AM [employer] Work Phone: [phone] NoteComprehensive Pre Surgical History and Physical ? Name: Alfie Hogan : 1960 (Age-62 y.o.) Date of Service: Pt seen/examined on 08/02/2023 Procedure Information Date/Time: 08/09/23 0930 Procedure: REMOVAL HARDWARE LUMBAR3/4/5, LAMINECTOMY LUMBAR2, FUSION [id number], INSTRUMENTATION [id number], ALLOGRAFT, BONE MORPHOGENETIC PROTEIN (Spine Lumbar) Location: [facility] OR [address] [place] [address] Operating Room Surgeons: Brandon Bean MD Chief Complaint: Scoliosis, unspecified [M41.9] Spinal stenosis, lumbar region without neurogenic claudication [M48.061] ASSESSMENT/PLAN: Patient is considered high risk for this intermediate level 3 risk procedure/surgery. 1) Scoliosis, unspecified [M41.9] Spinal stenosis, lumbar region without neurogenic claudication [M48.061] - Managed per surgery - 06/18/23 CBC, CMP, Vit D reviewed - Ordered per PAT Protocol - EKG, PT/INR, A1c, prealbumin, T&S, UA, MRSA - CHG shower kit - Pain consult ordered 2) COPD // Asthma // Bronchiectasis // Respiratory failure // Paralyzed diaphragm - 3 L O2 NC continuous, not currently wearing her O2 - 94% on RA - Continue inhalers - Follows OP with Dr. Padron - Pulmonary clearance 07/10/23 3) Pulmonary HTN - 2019 echo Right ventricle: The cavity size is normal. Systolic function is normal. Right ventricular systolic pressure is within the normal range. - Follows OP pulmonology 4) CHF - Coreg - 2019 echo The estimated ejection fraction is 75%. 5) HTN - Coreg BP Readings from Last 3 Encounters: 08/02/23 95/62 02/15/23 96/53 06/07/22 (!) 156/92 6) CKD - 06/18/23 Cr 1.04 GFR 57 7) GERD - PPI 8) GENNARO - BiPAP 9) HLD - Statin 10) DVT, RLE, remote - Approx in 2019 after broken ankle 11) Fall - Occurred yesterday, mechanical fall, denies syncope - Hit her head, slight ecchymosis on forehead - EOM intact, patient denies nausea, dizziness, headache 12) Obesity - Body mass index is 38.11 kg/m?. Visit Type: Pre-Admission Testing Visit Labs Ordered: YES - PER PAT PROTOCOL Sleep Referral Ordered: NO - ALREADY DIAGNOSED WITH GENNARO AND COMPLIANT WITH CPAP Total time spent (which include face to face and non face to face encounters) : 40 minutes Toxic drug monitoring/narrow therapeutic index drug monitoring : # Drug name : n/a # Route administered : n/a # Method of monitoring : n/a PAT Protocol referenced includes: 1. Anesthesia Lab Protocol Orders 2. Perioperative Cardiovascular Risk Assessment 3. Anesthesia Assessment 4. Pain Assessment and Acute Pain Service Consult (if appropriate) 5. Medical Clearance/Consult from Internal Medicine ([facility]) 6. Shower/Wash Order (for designated surgeries) 7. GENNARO Screen and Sleep Clinic Referral (if appropriate) History Of Present Illness: 62 y.o. female who we are asked to see/evaluate by Dr. Bean for pre-operative evaluation prior to the above procedure. Patient seen by Dr. Collado on 07/05/23 The patient is a 62 year old, right handed female with a past medical history of abdominal pain, acute gastritis, acute renal failure, anxiety, arthritis, asthma, DDD, esophagitis, HPL, HTN, kidney disease, GENNARO, ovarian cyst, phlebitis and thrombophlebitis, tobacco use and urinary calculus who is referred by Dr. Caro for neurosurgical evaluation. Today she states she underwent a prior lumbar fusion in [address] Corrales and noted her symptoms were similar to the ones she endorses today. She reports resolution of symptoms for a few years after surgery. In April-May he low back pain returned and worsened to the point of not being able to ambulate. She has been incontinent of bowel and bladder with no sensation for 2 months. She notes low back pain that radiates into her bilateral gluteal aspects and right groin. Her pain radiate down the posterior thigh to the ankle. She endorses numbness and tingling to the 1st 3 digits on the right foot and intermittent numbness and tingling down her leg. She endorses right leg weakness that is also pain limited. She denies any recent falls. She is unable to ambulate or stand for more than a few minutes without her back feeling like its going to give out. She participated with physical therapy about 8 months ago at [facility] without relief. She has seen pain management and obtained injections in the past, but nothing recent. She was evaluated 5 years ago for a Spinal cord stimulator, but was unable to due to scar tissue. She notes nothing helps her pain and is taking an excessive amount of Aleve a day. ? Denies history of CT, CAD, TIA, CVA Past Medical History: Past Medical History: No date: 2019 novel coronavirus disease (COVID-19) 07/07/2020: Alcohol dependence with uncomplicated withdrawal (HCC) No date: Allergic No date: Anxiety No date: Arthritis (more content not included)...[facility] [id number] Note Comprehensive Pre Surgical History and Physical ? Name: Alfie Hogan : 1960 (Age-62 y.o.) Date of Service: Pt seen/examined on 08/02/2023 Procedure Information Date/Time: 08/09/23 0930 Procedure: REMOVAL HARDWARE LUMBAR3/4/5, LAMINECTOMY LUMBAR2, FUSION [id number], INSTRUMENTATION [id number], ALLOGRAFT, BONE MORPHOGENETIC PROTEIN (Spine Lumbar) Location: [facility] OR [address] [place] [address] Operating Room Surgeons: Brandon Bean MD Chief Complaint: Scoliosis, unspecified [M41.9] Spinal stenosis, lumbar region without neurogenic claudication [M48.061] ASSESSMENT/PLAN: Patient is considered high risk for this intermediate level 3 risk procedure/surgery. 1) Scoliosis, unspecified [M41.9] Spinal stenosis, lumbar region without neurogenic claudication [M48.061] - Managed per surgery - 06/18/23 CBC, CMP, Vit D reviewed - Ordered per [facility] Protocol - EKG, PT/INR, A1c, prealbumin, T&S, UA, MRSA - CHG shower kit - Pain consult ordered 2) COPD // Asthma // Bronchiectasis // Respiratory failure // Paralyzed diaphragm - 3 L O2 NC continuous, not currently wearing her O2 - 94% on RA - Continue inhalers - Follows OP with Dr. Padron - Pulmonary clearance 07/10/23 3) Pulmonary HTN - 2019 echo Right ventricle: The cavity size is normal. Systolic function is normal. Right ventricular systolic pressure is within the normal range. - Follows OP pulmonology 4) CHF - Coreg - 2019 echo The estimated ejection fraction is 75%. 5) HTN - Coreg BP Readings from Last 3 Encounters: 08/02/23 95/62 02/15/23 96/53 06/07/22 (!) 156/92 6) CKD - 06/18/23 Cr 1.04 GFR 57 7) GERD - PPI 8) GENNARO - BiPAP 9) HLD - Statin 10) DVT, RLE, remote - Approx in 2019 after broken ankle 11) Fall - Occurred yesterday, mechanical fall, denies syncope - Hit her head, slight ecchymosis on forehead - EOM intact, patient denies nausea, dizziness, headache 12) Obesity - Body mass index is 38.11 kg/m?. Visit Type: Pre-Admission Testing Visit Labs Ordered: YES - PER [facility] PROTOCOL Sleep Referral Ordered: NO - ALREADY DIAGNOSED WITH GENNARO AND COMPLIANT WITH CPAP Total time spent (which include face to face and non face to face encounters) : 40 minutes Toxic drug monitoring/narrow therapeutic index drug monitoring : # Drug name : n/a # Route administered : n/a # Method of monitoring : n/a PAT Protocol referenced includes: 1. Anesthesia Lab Protocol Orders 2. Perioperative Cardiovascular Risk Assessment 3. Anesthesia Assessment 4. Pain Assessment and Acute Pain Service Consult (if appropriate) 5. Medical Clearance/Consult from Internal Medicine ([facility]) 6. Shower/Wash Order (for designated surgeries) 7. GENNARO Screen and Sleep Clinic Referral (if appropriate) History Of Present Illness: 62 y.o. female who we are asked to see/evaluate by Dr. Bean for pre-operative evaluation prior to the above procedure. Patient seen by Dr. Collado on 07/05/23 The patient is a 62 year old, right handed female with a past medical history of abdominal pain, acute gastritis, acute renal failure, anxiety, arthritis, asthma, DDD, esophagitis, HPL, HTN, kidney disease, GENNARO, ovarian cyst, phlebitis and thrombophlebitis, tobacco use and urinary calculus who is referred by Dr. Caro for neurosurgical evaluation. Today she states she underwent a prior lumbar fusion in [address] Corrales and noted her symptoms were similar to the ones she endorses today. She reports resolution of symptoms for a few years after surgery. In April-May he low back pain returned and worsened to the point of not being able to ambulate. She has been incontinent of bowel and bladder with no sensation for 2 months. She notes low back pain that radiates into her bilateral gluteal aspects and right groin. Her pain radiate down the posterior thigh to the ankle. She endorses numbness and tingling to the 1st 3 digits on the right foot and intermittent numbness and tingling down her leg. She endorses right leg weakness that is also pain limited. She denies any recent falls. She is unable to ambulate or stand for more than a few minutes without her back feeling like its going to give out. She participated with physical therapy about 8 months ago at [facility] without relief. She has seen pain management and obtained injections in the past, but nothing recent. She was evaluated 5 years ago for a Spinal cord stimulator, but was unable to due to scar tissue. She notes nothing helps her pain and is taking an excessive amount of Aleve a day. ? Denies history of CT, CAD, TIA, CVA Past Medical History: Past Medical History: No date: 2019 novel coronavirus disease (COVID-19) 07/07/2020: Alcohol dependence with uncomplicated withdrawal (HCC) No date: Allergic No date: Anxiety No date: Arthritis (more content not included)...[facility]02-02-2024 Miscellaneous Notes* Addendum Note - Amy Ross MD - 07/06/2023 4:21 PM ESTAddended by: AMY ROSS on: 07/06/2023 04:21 PM Modules accepted: Orders * Telephone Encounter - Amy Ross MD - 07/06/2023 4:19 PM EST Fast Track Injection Request: Referring Surgeon: Injection Requested: R L3-4 Selective Nerve Root Block Imaging reviewed: MRI L-spine from 06/2023 Anti-Coagulants: Eliquis - 3 day hold Patient appropriate for the requested procedure. Order placed. Staff informed to assist patient with scheduling. Amy Ross MD PhD * Telephone Encounter - Prisca Bell PSS - 07/06/2023 2:11 PM EST Received referral from Annika Collado MD, PhD for patient to have Right L3 selective nerve root block Imaging- CT scan scheduled for 07/30/23 Anticoag- Eliquis Please review and advise Prisca Bell [place] to Dr. Ross, Josephine Lucas PA-C, Workers Compensation [facility] P: [id number] / F: [phone] / [email or web address] documented in this encounterBellevue Hospital02-01-2024 NoteHNO ID: [id number] Author: ANNIKA COLLADO MD, PhD Service: ? Author Type: Physician Type: Progress Notes Filed: 07/05/2023 14:01 Note Text: NEUROSURGERY CONSULT NOTE Annika Collado MD, PhD Date of visit: July 05, 2023 Patient Name: Ms.Kimberly Karli Hogan Date of : 1960 Current Age: [age] year old Sex: female MRN/E# [id number] Chief Complaint: No chief complaint on file. HISTORY OF PRESENT ILLNESS : The patient is a 62 year old, right handed female with a past medical history of abdominal pain, acute gastritis, acute renal failure, anxiety, arthritis, asthma, DDD, esophagitis, HPL, HTN, kidney disease, GENNARO, ovarian cyst, phlebitis and thrombophlebitis, tobacco use and urinary calculus who is referred by Dr. Caro for neurosurgical evaluation. Today she states she underwent a prior lumbar fusion in [address] Corrales and noted her symptoms were similar to the ones she endorses today. She reports resolution of symptoms for a few years after surgery. In April-May he low back pain returned and worsened to the point of not being able to ambulate. She has been incontinent of bowel and bladder with no sensation for 2 months. She notes low back pain that radiates into her bilateral gluteal aspects and right groin. Her pain radiate down the posterior thigh to the ankle. She endorses numbness and tingling to the 1st 3 digits on the right foot and intermittent numbness and tingling down her leg. She endorses right leg weakness that is also pain limited. She denies any recent falls. She is unable to ambulate or stand for more than a few minutes without her back feeling like its going to give out. She participated with physical therapy about 8 months ago at [facility] without relief. She has seen pain management and obtained injections in the past, but nothing recent. She was evaluated 5 years ago for a Spinal cord stimulator, but was unable to due to scar tissue. She notes nothing helps her pain and is taking an excessive amount of Aleve a day. She presents for imaging review, evaluation and plan of care. 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 Corrales PAIN EVALUATION No data found in the last 1 encounters. PAST MEDICAL HISTORY Diagnosis Date Abdominal pain, right lower quadrant Acute gastritis without mention of hemorrhage Acute renal failure (HCC) 2011 2012 episodes of Cr elevation Anxiety Arthritis, multiple joint involvement Asthma DDD (degenerative disc disease), lumbar Depression with anxiety Diaphragmatic hernia without mention of obstruction or gangrene Dyspepsia and other specified disorders of function of stomach Esophagitis, unspecified Hyperlipidemia 11/28/2011 Hypertension Kidney disease GENNARO (obstructive sleep apnea) on CPAP Other and unspecified ovarian cyst Ovarian cyst Phlebitis and thrombophlebitis of unspecified site Tobacco use disorder Urinary calculus, unspecified Renal stones PAST SURGICAL HISTORY Procedure Laterality Date APPENDECTOMY COLONOSCOPY FLX DX W/COLLJ SPEC WHEN PFRMD 09/15/2005 [facility] Colonoscopy EGD TRANSORAL BIOPSY SINGLE/MULTIPLE 08/30/06 EGD TRANSORAL BIOPSY SINGLE/MULTIPLE 04/11/11 LAPS SURG CHOLECYSTECTOMY W/CHOLANGIOGRAPHY 08/30/06 OOPHORECTOMY, PART/TOTAL UNILAT/BILAT 2005 bilateral oophorectomy benign cysts, appendectomy PAST SURGICAL HISTORY OF 2000?, 2009 ruptured disc L3-L4 repair; fusion PAST SURGICAL HISTORY OF tendonectomy right elbow PAST SURGICAL HISTORY OF 2008 left MEAGAN PAST SURGICAL HISTORY OF 12/30/2014 right MEAGAN RPR UMBILICAL HRNA 5 YRS/> REDUCIBLE grade 6 Hernia repair, umbilical >5yr TONSILLECTOMY HX VAGINAL HYSTERECTOMY UTERUS 250 GM/< adenomysis FAMILY HISTORY Problem Relation Age of Onset Cancer Mother pancreatic Cancer Maternal Grandmother stomach Colon Cancer Paternal Grandmother Hypertension Father Colon Cancer Father 72 Stroke Paternal Grandfather ALLERGIES Allergen Reactions Cat Hair Standardiz* Other: See Comments Dust Other: See Comments sneezing Penicillins Percocet [Oxycodone* Itching Seasonal Allergies Other: See Comments ragweed, cats, pollen cause sneezing and eyes watering Current Outpatient Medications Medication Sig Dispense Refill apixaban (ELIQUIS) 5 mg (74 tabs) Take 2 tablets (10 mg) by mouth twice daily for 7 days. Then take 1 tablet (5 mg) by mouth twice daily for 23 days 74 tablet 0 QUEtiapine (SEROQUEL) 100 mg tablet 1 tablet daily at bedtime. thiamine (VITAMIN B1) 100 mg tablet Take 100 mg by mouth three times daily. rivastigmine (EXELON) 4.6 mg/24 hour patch 1 Patch once daily. memantine (NAMENDA) 5 mg tablet Take 5 mg by mouth once daily. magnesium oxide (MAG-OX) 400 mg (241.3 mg magnesium) tablet (more content not included)...[facility]02-01-2024 History of Present illness Narrative* Annika Collado MD, PhD - 07/05/2023 10:30 AM EST Images from the original note were not included. NEUROSURGERY CONSULT NOTE Annika Collado MD, PhD Date of visit: July 05, 2023 Patient Name: Ms.Kimberly Karli Hogan Date of : 1960 Current Age: [age] year old Sex: female MRN/E# [id number] Chief Complaint: No chief complaint on file. HISTORY OF PRESENT ILLNESS : The patient is a 62 year old, right handed female with a past medical history of abdominal pain, acute gastritis, acute renal failure, anxiety, arthritis, asthma, DDD, esophagitis, HPL, HTN, kidney disease, GENNARO, ovarian cyst, phlebitis and thrombophlebitis, tobacco use and urinary calculus who is referred by Dr. Caro for neurosurgical evaluation. Today she states she underwent a prior lumbar fusion in [address] Corrales and noted her symptomswere similar to the ones she endorses today. She reports resolution of symptoms for a few years after surgery. In April-May he low back pain returned and worsened to the point of not being able to ambulate. She has been incontinent of bowel and bladder with no sensation for 2 months. She notes low back pain that radiates into her bilateral gluteal aspects and right groin. Her pain radiatedown the posterior thigh to the ankle. She endorses numbness and tingling to the 1st 3 digits on the right foot and intermittent numbness and tingling down her leg. She endorses right leg weakness that is also pain limited. She denies any recent falls. She is unable to ambulate or stand for more than a few minutes without her back feeling like its going to give out. She participated with physicaltherapy about 8 months ago at [facility] without relief. She has seen pain management and obtained injections in the past, but nothing recent. She was evaluated 5 years ago for a Spinal cord stimulator, but was unable to due to scar tissue. She notes nothing helps her pain and is taking an excessive amount of Aleve a day. She presents for imaging review, evaluation and plan of care. 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 Corrales PAIN EVALUATION No data found in the last 1 encounters. PAST MEDICAL HISTORY Diagnosis Date Abdominal pain, right lower quadrant Acute gastritis without mention of hemorrhage Acute renal failure (HCC) 2011 2012 episodes of Cr elevation Anxiety Arthritis, multiple joint involvement Asthma DDD (degenerative disc disease), lumbar Depression with anxiety Diaphragmatic hernia without mention of obstruction or gangrene Dyspepsia and other specified disorders of function of stomach Esophagitis, unspecified Hyperlipidemia 11/28/2011 Hypertension Kidney disease GENNARO (obstructive sleep apnea) on CPAP Other and unspecified ovarian cyst Ovarian cyst Phlebitis and thrombophlebitis of unspecified site Tobacco use disorder Urinary calculus, unspecified Renal stones PAST SURGICAL HISTORY Procedure Laterality Date APPENDECTOMY COLONOSCOPY FLX DX W/COLLJ SPEC WHEN PFRMD 09/15/2005 [facility] Colonoscopy EGD TRANSORAL BIOPSY SINGLE/MULTIPLE 08/30/06 EGD TRANSORAL BIOPSY SINGLE/MULTIPLE 04/11/11 [facility]G CHOLECYSTECTOMY W/CHOLANGIOGRAPHY 08/30/06 OOPHORECTOMY, PART/TOTAL UNILAT/BILAT 2005 bilateral oophorectomy benign cysts, appendectomy PAST SURGICAL HISTORY OF 2000?, 2009 ruptured disc L3-L4 repair; fusion PAST SURGICAL HISTORY OF tendonectomy right elbow PAST SURGICAL HISTORY OF 2008 left MEAGAN PAST SURGICAL HISTORY OF 12/30/2014 right MEAGAN RPR UMBILICAL HRNA 5 YRS/> REDUCIBLE grade 6 Hernia repair, umbilical >5yr TONSILLECTOMY HX VAGINAL HYSTERECTOMY UTERUS 250 GM/< adenomysis FAMILY HISTORY Problem Relation Age of Onset Cancer Mother pancreatic Cancer Maternal Grandmother stomach Colon Cancer Paternal Grandmother Hypertension Father Colon Cancer Father 72 Stroke Paternal Grandfather ALLERGIES Allergen Reactions Cat Hair Standardiz* Other: See Comments Dust Other: See Comments sneezing Penicillins Percocet [Oxycodone* Itching Seasonal Allergies Other: See Comments ragweed, cats, pollen cause sneezing and eyes watering Current Outpatient Medications Medication Sig Dispense Refill apixaban (ELIQUIS) 5 mg (74 tabs) Take 2 tablets (10 mg) by mouth twice daily for 7 days. Then take1 tablet (5 mg) by mouth twice daily for 23 days 74 tablet 0 QUEtiapine (SEROQUEL) 100 mg tablet 1 tablet daily at bedtime. thiamine (VITAMIN B1) 100 mg tablet Take 100 mg by mouth three times daily. rivastigmine (EXELON) 4.6 mg/24 hour patch 1 Patch once daily. memantine (NAMENDA) 5 mg tablet Take 5 mg by mouth once daily. magnesium oxide (MAG-OX) 400 mg (241.3 mg magnesium) tablet Take 1 tablet by mouth once daily. hydrOXYzine HCl (ATARAX) 50 mg tablet Take 50 mg by mouth three times daily as needed. folic acid 1 mg tablet Take 1 mg by mouth once daily. FLUoxetine (PROZAC) 10 mg capsule Take 10 mg by mouth once daily. docusate sodium (COLACE) 100 mg capsule 2 capsules as needed. busPIRone (BUSPAR) 5 mg tablet Take 5 mg by mouth three times daily. benztropine (COGENTIN) 0.5 mg tablet Take 0.5 mg by mouth twice daily as needed. prochlorperazine (COMPAZINE) 10 mg tablet Take 1 tablet by mouth every 6 hours as needed for Nausea/Vomiting. niacin (NIACIN) 500 mg tablet Take 1 tablet by mouth twice daily with meals. potassium chloride (K-TAB) 10 mEq tablet Take 6 tablets by mouth twice daily. mometasone-formoterol (DULERA) 100-5 mcg/actuation inhaler Inhale 2 Puffs as instructed twice daily. pantoprazole DR (PROTONIX) 40 mg tablet Take 40 mg by mouth once daily. albuterol HFA (VENTOLIN HFA) 90 mcg/actuation inhaler Inhale 2 Puffs as instructed every 4 hours asneeded for Wheezing/Shortness of Breath. 1 Inhaler 0 No current facility-administered medications for this visit. SOCIAL HISTORY: REVIEW OF SYSTEMS Review of Systems Constitutional: Negative for chills, fatigue and fever. HENT: Negative for congestion and sore throat. Eyes: Negative for discharge, itching and visual disturbance. Respiratory: Negative for cough and shortness of breath. Cardiovascular: Negative for chest pain and palpitations. Gastrointestinal: Negative for constipation, diarrhea, nausea and vomiting. Incontinence Endocrine: Negative for cold intolerance and heat intolerance. Genitourinary: Negative for difficulty urinating, frequency and urgency. Incontinence Musculoskeletal: Positive for back pain and gait problem. Negative for neck pain and neck stiffness. Skin: Negative for rash and wound. Allergic/Immunologic: Negative for environmental allergies and food allergies. Neurological: Positive for weakness and numbness. Negative for dizziness, light- headedness and headaches. Hematological: Does not bruise/bleed easily. Psychiatric/Behavioral: Negative for agitation. The patient is not nervous/anxious. OBJECTIVE: There were no vitals taken for this visit. PHYSICAL EXAM: General Examination BP 114/85 (BP Site: Right Arm, BP Position: Sitting) Pulse 102 Wt 248 lb 0.3 oz (112.5 kg) SpO2 93% BMI 40.64 kg/m General Exam Neurological Exam Mental Status Alfie appeared uncomfortable and she was very tearful in the appointment today. Her large posterior lumbar incision was well-healed and there is no underlying fluctuance. Alfie had diffuse patches of subcutaneous bruising across her lumbar region and I saw the same thing around her abdomen aswell. Kayce did not exhibit lumbar spinal or paraspinal tenderness. Motor Examination and Coordination Kayce had a lot of difficulty with right hip flexion. Ultimately I judged that this is pain limited as I was able to get a brief window of 5 out of 5 power. Neuromuscular Examination Extremity Muscles Upper Extremity Right Left Shoulder abduction 5 5 Elbow flexion 5 5 Elbow extension 5 5 Wrist flexion 5 5 Wrist extension 5 5 Finger flexion/bath solution maker 5 5 Lower Extremity Right Left Hip flexion 5 5 Knee flexion 5 5 Knee extension 5 5 Ankle plantarflexion 5 5 Ankle dorsiflexion 5 5 Extensor hallucis longus 5 5 Reflexes Deep tendon reflexes graded by MRC Deep Tendon Reflexes Right Left Biceps 1+ 1+ Triceps 1+ 1+ Brachioradialis 1+ 1+ Patellar 1+ 1+ Achilles 0 0 Sensation Kayce reported numbness of her entire right thigh and leg medially and laterally with normal sensation on the right. Her feet bilaterally had normal sensation to light touch. Kayce had a lot of discomfort with passive joint range of motion on the right though it is noted thatsindi had a hip replacement performed there. She had a positive Lasegue's sign on the right and she reported shooting pain to the back of her right leg. This exam was negative on the left. Data Review IMAGING STUDIES: MRI Lumbar Spine 06/25/2023: ASSESSMENT: Alfie has: - diffuse bruising - prior lumbar spine fusion -right leg pain and numbness -low back pain -mood disorder -hernia -hypertension and hyperlipidemia -kidney disease -obstructive sleep apnea -urinary calculus Kayce seem very uncomfortable today. I think there is some suspicion that she may have a right L3 radiculopathy as a result of adjacent segment degeneration just above her prior fusion. Her numbness and reported incontinence does not align with any concerning findings on imaging which was recently performed. I did not see evidence of hardware problem on her x-rays. I think though it is critical to get a CT of her lumbar spine as well as lumbar flexion-extension films to better assess that instrumentation and the mobility of her spine. I should note that I had difficulty opening her outside imaging today and had to rely on a backup system that limits my ability to assess the films. We will upload these films to our system and I anticipate being able to assess them better when next I see him. Kayce did not have any insight into possible reasons for her diffuse bruising. I have strongly encouraged her to see her family doctor promptly to explore potential causes for this. Kayce states that she refuses to see her original spine surgeon. PLAN: I am referring him for a selective right nerve root block. I also requested a lumbar spine CT and lumbar flexion-extension films to better assess her existing hardware. I have also cautioned Kayce thather BMI is currently above threshold for safe lumbar spinal surgery. I am pleased to hear though that she has been losing weight recently. I look forward to reassessing Kayce in about a month. Attestation: The following portions of the patient's history were reviewed, confirmed, and updated as necessary: allergies, current medications, past family history, past medical history, past socialhistory, past surgical history, problem list, HPI, and ROS obtained by others. Some elements may be copied from a previous office note and have been reviewed/updated where appropriate. All portions reflect current medical decision making from today. The clinical and radiographic findings as well as the risks, benefits and alternatives of treatmenthave been reviewed in detail with the patient. The patient was advised to call the office if symptoms worsen or new symptoms develop. The patient expressed understanding and is in agreement with plan. Annika Collado MD, PhD This note was partially generated using [employer] voice recognition system, and there may be some incorrect words, spellings, and punctuation that were not noted in checking the note before saving. [facility] Telephone encounter Note * Telephone Encounter - Shilpa Laurent - 06/28/2023 12:26 PM EST Prescription Request: Last medication check: 02/15/23 Last physical exam: 11/26/20 Next scheduled appointment: na Last date of refill on this medication 03/09/23 [id number] Miscellaneous Notes* Telephone Encounter - Shilpa Laruent - 06/28/2023 12:26 PM EST Prescription Request: Last medication check: 02/15/23 Last physical exam: 11/26/20 Next scheduled appointment: na Last date of refill on this medication 03/09/23 documented in this encounterSThe [facility] [id number] Telephone encounter Note* Telephone Encounter - SUZY Barrera CNP - 05/07/2023 4:02 PM EST Rx sent. Follow up as scheduled. [id number] Miscellaneous Notes* Telephone Encounter - SUZY Barrera CNP - 05/07/2023 4:02 PM EST Rx sent. Follow up as scheduled. * Telephone Encounter - Bertha Booth - 05/07/2023 10:54 AM EST Prescription Request: Last medication check: 02-15-23 Last physical exam: 11-26-20 Next scheduled appointment: 06-13-23 Last date of refill on this medication 04-09-23 documented in this encounterSThe [facility] [id number] Telephone encounter Note* Telephone Encounter - Bertha Booth - 05/07/2023 10:54 AM EST Prescription Request: Last medication check: 02-15-23 Last physical exam: 11-26-20 Next scheduled appointment: 06-13-23 Last date of refill on this medication 04-09-23 [id number] Telephone encounter Note* Telephone Encounter - SUZY Barrera CNP - 04/16/2023 1:44 PM EST Rx sent. Follow up as scheduled. [id number] Miscellaneous Notes* Telephone Encounter - SUZY Barrera CNP - 04/16/2023 1:44 PM EST Rx sent. Follow up as scheduled. * Telephone Encounter - Bassam Zepeda LPN - 04/16/2023 8:00 AM EST Prescription Request: Last medication check: 02/15/23 Last physical exam: 6/25/21 Next scheduled appointment: 06/13/23 Last date of refill on this medication 10/31/22 #180 1 refill documented in this [facility]11-13-2023 Telephone encounter Note* Telephone Encounter - Bassam Zepeda LPN - 04/16/2023 8:00 AM EST Prescription Request: Last medication check: 02/15/23 Last physical exam: 11/26/20 Next scheduled appointment: 06/13/23 Last date of refill on this medication 10/31/22 #180 1 refill [id number] Telephone encounter Note* Telephone Encounter - Debbie Andrews MA - 03/19/2023 8:43 AM EDT Prescription Request: Last medication check: 02/15/23 Last physical exam: none Next scheduled appointment: 06/13/23 Last date of refill on this medication 10/09/22 [place] [id number] Miscellaneous Notes* Telephone Encounter - Debbie Andrews MA - 03/19/2023 8:43 AM EDT Prescription Request: Last medication check: 02/15/23 Last physical exam: none Next scheduled appointment: 06/13/23 Last date of refill on this medication 10/09/22 documented in this [facility]10-10-2023 Telephone encounter Note* Telephone Encounter - SUZY Bush CNP - 03/13/2023 5:37 PM EDT Reviewed chart. Refill appropriate. RX sent. [place] [id number] Miscellaneous Notes* Telephone Encounter - SUZY Bush CNP - 03/13/2023 5:37 PM EDT Reviewed chart. Refill appropriate. RX sent. * Telephone Encounter - Debbie Andrews MA - 03/13/2023 11:22 AM EDT Prescription Request: Last medication check: 02/15/23 Last physical exam: none Next scheduled appointment: 06/13/23 Last date of refill on this medication 02/19/23 documented in this encounterSThe [facility] [id number] Telephone encounter Note* Telephone Encounter - Debbie Andrews MA - 03/13/2023 11:22 AM EDT Prescription Request: Last medication check: 02/15/23 Last physical exam: none Next scheduled appointment: 06/13/23 Last date of refill on this medication 02/19/23 [facility] [id number] Telephone encounter Note* Telephone Encounter - Bernardino Moran MD - 03/12/2023 5:44 AM EDT Okay, thank you [facility] [id number] Miscellaneous Notes* Telephone Encounter - Bernardino Moran MD - 03/12/2023 5:44 AM EDT Okay, thank you * Telephone Encounter - Kim Cason RN - 03/09/2023 2:00 PM EDT S: Patient spoke with [facility] nurse regarding nausea B: Onset of symptoms/concern 3 days A: Pt has been having nausea, vomiting and annoying headache that started on 03-06-23. Headache is in the forehead. Rates 3-4/10. Has been having trouble sleeping. Gets nauseated when she is tired. Usually only vomits once in 24 hours. Had diarrhea for 2 days but nonne today Has been drinking fluids. Asking for prescription of zofran to be sent to the pharmacy. Denies fever, chest pain, sob, bloodin emesis, or abdominal pain. Pt is not diabetic. Office is closed. Pt asked if the provider could be notified because she does not want to go the weekend with n/v. R: Allergies reviewed and pharmacy verified - [facility]. Paged provider station air traffic control specialist via secure chat - Yessi Silver CNP Verbal order given to [facility] nurse for zofran 4 mg #12, 1 po every 8 hours prn for n/v with no refill. Read back to provider for verification. Pt to follow up with the office next week if it does not resolve. Prescription called to pharmacy at 2:21 pm, spoke with Antonella.Keep well hydrated. Patient informed and understands care advice. Instructed to call back with any further questions or concerns. Reason for Disposition Unexplained nausea Protocols used: [id number] documented in this [facility]10-06-2023 Telephone encounter Note* Telephone Encounter - Kim Cason RN - 03/09/2023 2:00 PM EDT S: Patient spoke with [facility] nurse regarding nausea B: Onset of symptoms/concern 3 days A: Pt has been having nausea, vomiting and annoying headache that started on 03-06-23. Headache is in the forehead. Rates 3-4/10. Has been having trouble sleeping. Gets nauseated when she is tired. Usually only vomits once in 24 hours. Had diarrhea for 2 days but nonne today Has been drinking fluids. Asking for prescription of zofran to be sent to the pharmacy. Denies fever, chest pain, sob, bloodin emesis, or abdominal pain. Pt is not diabetic. Office is closed. Pt asked if the provider could be notified because she does not want to go the weekend with n/v. R: Allergies reviewed and pharmacy verified - [facility] in [place]. Paged provider station air traffic control specialist via secure chat - Yessi Silver CNP Verbal order given to [facility] nurse for zofran 4 mg #12, 1 po every 8 hours prn for n/v with no refill. Read back to provider for verification. Pt to follow up with the office next week if it does not resolve. Prescription called to pharmacy at 2:21 pm, spoke with Antonella.Keep well hydrated. Patient informed and understands care advice. Instructed to call back with any further questions or concerns. Reason for Disposition Unexplained nausea Protocols used: [id number] [facility] [id number] Miscellaneous Notes* Telephone Encounter - Kim Cason RN - 03/09/2023 2:00 PM EDT S: Patient spoke with [facility] nurse regarding nausea B: Onset of symptoms/concern 3 days A: Pt has been having nausea, vomiting and annoying headache that started on 03-06-23. Headache is in the forehead. Rates 3-/. Has been having trouble sleeping. Gets nauseated when she is tired. Usually only vomits once in 24 hours. Had diarrhea for 2 days but nonne today Has been drinking fluids. Asking for prescription of zofran to be sent to the pharmacy. Denies fever, chest pain, sob, bloodin emesis, or abdominal pain. Pt is not diabetic. Office is closed. Pt asked if the provider could be notified because she does not want to go the weekend with n/v. R: Allergies reviewed and pharmacy verified - [facility] in [place]. Paged provider station air traffic control specialist via secure chat - Yessi Silver CNP Verbal order given to [facility] nurse for zofran 4 mg #12, 1 po every 8 hours prn for n/v with no refill. Read back to provider for verification. Pt to follow up with the office next week if it does not resolve. Prescription called to pharmacy at 2:21 pm, spoke with Antonella.Keep well hydrated. Patient informed and understands care advice. Instructed to call back with any further questions or concerns. Reason for Disposition Unexplained nausea Protocols used: [id number] documented in this [facility]10-06-2023 Telephone encounter Note* Telephone Encounter - SUZY Bush CNP - 03/09/2023 11:56 AM EDT Reviewed chart. Refill appropriate. RX sent. [facility] [id number] Miscellaneous Notes* Telephone Encounter - SUZY Bush CNP - 03/09/2023 11:56 AM EDT Reviewed chart. Refill appropriate. RX sent. * Telephone Encounter - Larisa Bates - 03/09/2023 10:48 AM EDT Medication name: trospium (Sanctura Medication dosage: 20mg Monthly quantity needed: 60 How many day supply requestin days Medication route: oral (PO) Medication administration time(s): 2 times a day (BID) If taking medication PRN, reason for taking medication: N/A If this is a controlled substance do you receive this or any other controlled medication from any other doctor or facility: N/A Ordering provider: Dr Moran Date of last office visit: 02/15/23 Date of next office visit: 06/13/22 Date of last refill: (see medication tab): 11/17/22 Updated/Validated preferred pharmacy: Yes Patient instructed to contact the pharmacy prior to picking up the medication: N/A documented in this [facility]10-06-2023 Telephone encounter Note* Telephone Encounter - Larisa Bates - 03/09/2023 10:48 AM EDT Medication name: trospium (Sanctura Medication dosage: 20mg Monthly quantity needed: 60 How many day supply requestin days Medication route: oral (PO) Medication administration time(s): 2 times a day (BID) If taking medication PRN, reason for taking medication: N/A If this is a controlled substance do you receive this or any other controlled medication from any other doctor or facility: N/A Ordering provider: Dr Moran Date of last office visit: 02/15/23 Date of next office visit: 06/13/22 Date of last refill: (see medication tab): 11/17/22 Updated/Validated preferred pharmacy: Yes Patient instructed to contact the pharmacy prior to picking up the medication: N/A [facility] [id number] Telephone encounter Note* Telephone Encounter - Nicole Gongora MA - 02/19/2023 10:15 AM EDT Prescription Request: Last medication check: 02/15/23 Last physical exam: none Next scheduled appointment: 06/13/23 Last date of refill on this medication 01/22/23 30 days [facility] [id number] Miscellaneous Notes* Telephone Encounter - Nicole Gongora MA - 02/19/2023 10:15 AM EDT Prescription Request: Last medication check: 02/15/23 Last physical exam: none Next scheduled appointment: 06/13/23 Last date of refill on this medication 01/22/23 30 days documented in this encounterSThe [facility] [id number] Evaluation + Plan note* Assessment & Plan Note - Bernardino oMran MD - 02/15/2023 3:57 PM EDT Associated Problem(s): Hyperlipidemia Controlled, continue rosuvastatin 40 mg daily [place] [id number] Evaluation + Plan note* Assessment & Plan Note - Bernardino Moran MD - 02/15/2023 3:57 PM EDTAssociated Problem(s): Current moderate episode of major depressive disorder without prior episode (HCC) Partial remission, continue Prozac 40 mg [facility] [id number] Miscellaneous Notes* Assessment & Plan Note - Bernardino Moran MD - 02/15/2023 3:57 PM EDTAssociated Problem(s): Hyperlipidemia Controlled, continue rosuvastatin 40 mg daily * Assessment & Plan Note - Bernardino Moran MD - 02/15/2023 3:57 PM EDT Associated Problem(s): Current moderate episode of major depressive disorder without prior episode (HCC) Partial remission, continue Prozac 40 mg * Assessment & Plan Note - Bernardino Moran MD - 02/15/2023 3:56 PM EDT Associated Problem(s): Ataxia PT referral for strengthening and balance * Assessment & Plan Note - Bernardino Moran MD - 02/15/2023 3:56 PM EDT Associated Problem(s): Anxiety Partial remission, continue Prozac 40 mg daily * Assessment & Plan Note - Bernardino Moran MD - 02/15/2023 3:56 PM EDT Associated Problem(s): Other pancytopenia (CMS/HCC) (HCC) Stable, just a mild anemia at this time. * Assessment & Plan Note - Bernardino Moran MD - 02/15/2023 3:55 PM EDT Associated Problem(s): Morbid (severe) obesity due to excess calories (HCC) Encouraged increased exercise she says she has been going to the gym and even if she cannot get to the gym she should go walking every day. She is to avoid carbs at all cost. * Assessment & Plan Note - Bernardino Moran MD - 02/15/2023 3:55 PM EDT Associated Problem(s): GERD (gastroesophageal reflux disease) Stable, continue Protonix 40 mg * Assessment & Plan Note - Bernardino Moran MD - 02/15/2023 3:54 PM EDT Associated Problem(s): Essential hypertension Controlled, and in fact it is low we will have her stop her clonidine should go to 1 tablet daily for a week and then stop it. She is to monitor her blood pressure. Continue carvedilol 3.125 twice a day. * Assessment & Plan Note - Bernardino Moran MD - 02/15/2023 3:54 PM EDT Associated Problem(s): Chronic hypoxemic respiratory failure (CMS/HCC) (HCC) Continue oxygen mainly at night * Assessment & Plan Note - Bernardino Moran MD - 02/15/2023 3:54 PM EDT Associated Problem(s): Weakness of both lower extremities Physical therapy consult for strengthening and balance * Assessment & Plan Note - Bernardino Moran MD - 02/15/2023 3:53 PM EDT Associated Problem(s): Chronic insomnia Continue trazodone 150 mg nightly documented in this [facility]09-14-2023 Evaluation + Plan note* Assessment & Plan Note - Bernardino Moran MD - 02/15/2023 3:56 PM EDT Associated Problem(s): Ataxia PT referral for strengthening and balance [id number] + Plan note* Assessment & Plan Note - Bernardino Moran MD - 02/15/2023 3:56 PM EDTAssociated Problem(s): Anxiety Partial remission, continue Prozac 40 mg daily [facility] [id number] Evaluation + Plan note* Assessment & Plan Note - Bernardino Moran MD - 02/15/2023 3:56 PM EDTAssociated Problem(s): Other pancytopenia (CMS/HCC) (HCC) Stable, just a mild anemia at this time. [facility] [id number] Evaluation + Plan note* Assessment & Plan Note - Bernardino Moran MD - 02/15/2023 3:55 PM EDTAssociated Problem(s): Morbid (severe) obesity due to excess calories (HCC) Encouraged increased exercise she says she has been going to the gym and even if she cannot get to the gym she should go walking every day. She is to avoid carbs at all cost. [facility] [id number] Evaluation + Plan note* Assessment & Plan Note - Bernardino Moran MD - 02/15/2023 3:55 PM EDTAssociated Problem(s): GERD (gastroesophageal reflux disease) Stable, continue Protonix 40 mg [facility] [id number] Evaluation + Plan note* Assessment & Plan Note - Bernardino Moran MD - 02/15/2023 3:54 PM EDTAssociated Problem(s): Essential hypertension Controlled, and in fact it is low we will have her stop her clonidine should go to 1 tablet daily for a week and then stop it. She is to monitor her blood pressure. Continue carvedilol 3.125 twice a day. [facility] [id number] Evaluation + Plan note* Assessment & Plan Note - Bernardino Moran MD - 02/15/2023 3:54 PM EDTAssociated Problem(s): Chronic hypoxemic respiratory failure (CMS/HCC) (HCC) Continue oxygen mainly at night [facility] [id number] Evaluation + Plan note* Assessment & Plan Note - Bernardino Moran MD - 02/15/2023 3:54 PM EDTAssociated Problem(s): Weakness of both lower extremities Physical therapy consult for strengthening and balance [place] [id number] Evaluation + Plan note* Assessment & Plan Note - Bernardino Moran MD - 02/15/2023 3:53 PM EDTAssociated Problem(s): Chronic insomnia Continue trazodone 150 mg nightly [facility] [id number] History of Present illness Narrative* Li Quiñones MA - 02/15/2023 11:45 AM EDT Patient verified by last name and date of . * Bernardino Moran MD - 02/15/2023 11:45 AM EDT Images from the original note were not included. 02/15/2023 Alfie Hogan (: 1960) is a 62 y.o. female , Established patient, here for evaluation ofthe following chief complaint(s): Abnl Movement (TD - concerned that caused by some meds she is on ); stopping meds (Wanting to come off of some of the meds); Breathing Problem (Wears oxygen 25/12); and Falls, Balance (Still continue to have problems ) ASSESSMENT/PLAN: 1. Chronic insomnia Assessment & Plan: Continue trazodone 150 mg nightly 2. Morbid (severe) obesity due to excess calories (HCC) Assessment & Plan: Encouraged increased exercise she says she has been going to the gym and even if she cannot get to the gym she should go walking every day. She is to avoid carbs at all cost. 3. Chronic hypoxemic respiratory failure (CMS/HCC) (HCC) Assessment & Plan: Continue oxygen mainly at night 4. Other pancytopenia (CMS/HCC) (HCC) Assessment & Plan: Stable, just a mild anemia at this time. 5. Essential hypertension Assessment & Plan: Controlled, and in fact it is low we will have her stop her clonidine should go to 1 tablet daily for a week and then stop it. She is to monitor her blood pressure. Continue carvedilol 3.125 twice a day. 6. Gastroesophageal reflux disease without esophagitis Assessment & Plan: Stable, continue Protonix 40 mg 7. Current moderate episode of major depressive disorder without prior episode (HCC) Assessment & Plan: Partial remission, continue Prozac 40 mg 8. Anxiety Assessment & Plan: Partial remission, continue Prozac 40 mg daily 9. Pure hypercholesterolemia Assessment & Plan: Controlled, continue rosuvastatin 40 mg daily 10. Ataxia Assessment & Plan: PT referral for strengthening and balance Orders: - External referral to Physical Therapy 11. Weakness of both lower extremities Assessment & Plan: Physical therapy consult for strengthening and balance Orders: - External referral to Physical Therapy No follow-ups on file. SUBJECTIVE/OBJECTIVE: DHRUV Freeman comes in today for follow-up on her multiple health issues, a couple of issues she is concerned about 1 is that she continues to have difficulty with her legs and walking and she has had some falls. She also says that she sometimes has some strange movements and she is concerned that her medications may be causing TD, reviewing her medications she is on nothing that would cause that. She has a history of hypertension but her blood pressure is excellent today is actually on the low side she is wondering about coming off of her carvedilol or her clonidine, the clonidine would be the 1 that we will stop. Her reflux seems to be well controlled and her depression is doing okay right now, she continues toneed oxygen for breathing and she continues to need trazodone for her sleep. Review of Systems Constitutional: Negative for chills and fever. Respiratory: Negative for shortness of breath. Cardiovascular: Negative for chest pain and palpitations. Gastrointestinal: Negative for abdominal pain, blood in stool, constipation and diarrhea. Genitourinary: Negative for dyspareunia, dysuria, frequency, hematuria and urgency. Neurological: Negative for weakness and numbness. Psychiatric/Behavioral: Negative for dysphoric mood. The patient is not nervous/anxious. Vitals: 02/15/23 1150 BP: 96/53 Pulse: 65 SpO2: 94% Weight: 239 lb 9.6 oz (109 kg) Height: 5' 8 (1.727 m) Physical Exam Vitals and nursing note reviewed. Constitutional: General: She is not in acute distress. Appearance: Normal appearance. HENT: Head: Normocephalic. Right Ear: Tympanic membrane, ear canal and external ear normal. Left Ear: Tympanic membrane, ear canal and external ear normal. Mouth/Throat: Mouth: Mucous membranes are moist. Pharynx: Oropharynx is clear. Eyes: Extraocular Movements: Extraocular movements intact. Pupils: Pupils are equal, round, and reactive to light. Neck: Vascular: No carotid bruit. Cardiovascular: Rate and Rhythm: Normal rate and regular rhythm. Heart sounds: Normal heart sounds. No murmur heard. Pulmonary: Effort: Pulmonary effort is normal. Breath sounds: Normal breath sounds. Abdominal: General: Bowel sounds are normal. Palpations: Abdomen is soft. Musculoskeletal: General: Normal range of motion. Cervical back: Normal range of motion. Lymphadenopathy: Cervical: No cervical adenopathy. Skin: General: Skin is warm and dry. Neurological: General: No focal deficit present. Mental Status: She is alert and oriented to person, place, and time. Psychiatric: Mood and Affect: Mood normal. An electronic signature was used to authenticate this note. Bernardino Moran MD 02/15/2023 3:57 PM documented in this encounterSThe [facility] [id number] Telephone encounter Note* Telephone Encounter - SUZY Barrera CNP - 12/18/2022 8:24 AM EDT Rx sent. Follow up as scheduled. [facility] [id number] Miscellaneous Notes* Telephone Encounter - SUZY Barrera CNP - 12/18/2022 8:24 AM EDT Rx sent. Follow up as scheduled. * Telephone Encounter - Debbie Andrews MA - 12/18/2022 8:05 AM EDT Prescription Request: Last medication check: 08/29/22 Last physical exam: 06/07/22 Next scheduled appointment: 12/25/22 Last date of refill on this medication 09/22/22 documented in this [facility]07-17-2023 Telephone encounter Note* Telephone Encounter - Debbie Andrews MA - 12/18/2022 8:05 AM EDT Prescription Request: Last medication check: 08/29/22 Last physical exam: 06/07/22 Next scheduled appointment: 12/25/22 Last date of refill on this medication 09/22/22 [facility] [id number] Telephone encounter Note* Telephone Encounter - SUZY Barrera CNP - 11/27/2022 12:50 PM EDT Rx sent. Follow up as scheduled. [facility] [id number] Miscellaneous Notes* Telephone Encounter - SUZY Barrera CNP - 11/27/2022 12:50 PM EDT Rx sent. Follow up as scheduled. * Telephone Encounter - Nicole Gongora MA - 11/27/2022 11:55 AM EDT Prescription Request: Last medication check: 08/29/22 Last physical exam: 11/26/20 Next scheduled appointment: 12/13/22 Last date of refill on this medication 10/31/22 90 days 1 refill documented in this [facility]06-26-2023 Telephone encounter Note* Telephone Encounter - Nicole Gongora MA - 11/27/2022 11:55 AM EDT Prescription Request: Last medication check: 08/29/22 Last physical exam: 11/26/20 Next scheduled appointment: 12/13/22 Last date of refill on this medication 10/31/22 90 days 1 refill [facility] [id number] Telephone encounter Note* Telephone Encounter - Li Quiñones MA - 11/17/2022 12:24 PM EDT Prescription Request: Last medication check: 08/29/22 Last physical exam: 05/15/22 Next scheduled appointment: 12/13/22 Last date of refill on this medication 05/15/22 1 inhaler 5 refills [place] [id number] Miscellaneous Notes* Telephone Encounter - Li Quiñones MA - 11/17/2022 12:24 PM EDT Prescription Request: Last medication check: 08/29/22 Last physical exam: 05/15/22 Next scheduled appointment: 12/13/22 Last date of refill on this medication 05/15/22 1 inhaler 5 refills documented in this encounterSThe [facility] [id number] Telephone encounter Note* Telephone Encounter - Li Quiñones MA - 11/17/2022 12:21 PM EDT Prescription Request: Last medication check: 08/29/22 Last physical exam: 05/15/22 Next scheduled appointment: 12/13/22 Last date of refill on this medication sanctura 08/15/22 1 month 3 refills Potassium 06/07/22 1 month 5 refills [place] [id number] Miscellaneous Notes* Telephone Encounter - Li Quiñones MA - 11/17/2022 12:21 PM EDT Prescription Request: Last medication check: 08/29/22 Last physical exam: 05/15/22 Next scheduled appointment: 12/13/22 Last date of refill on this medication sanctura 08/15/22 1 month 3 refills Potassium 06/07/22 1 month 5 refills documented in this [facility]04-21-2023 Telephone encounter Note* Telephone Encounter - Noemi Hernandez - 09/22/2022 11:14 AM EDT Medication name: cloNIDine (Catapres) Medication dosage: 0.1 mg (Miligrams Monthly quantity needed: 60 How many day supply requestin days Medication route: oral (PO) Medication administration time(s): twice daily If taking medication PRN, reason for taking medication: N/A If this is a controlled substance do you receive this or any other controlled medication from any other doctor or facility: Yes Ordering provider: Dean Date of last office visit: 08/29/22 Date of next office visit: 12/13/22 Date of last refill: (see medication tab): 04/10/22 Updated/Validated preferred pharmacy: Yes Patient instructed to contact the pharmacy prior to picking up the medication: Yes [facility] [id number] Miscellaneous Notes* Telephone Encounter - Noemi Hernandez - 09/22/2022 11:14 AM EDT Medication name: cloNIDine (Catapres) Medication dosage: 0.1 mg (Miligrams Monthly quantity needed: 60 How many day supply requestin days Medication route: oral (PO) Medication administration time(s): twice daily If taking medication PRN, reason for taking medication: N/A If this is a controlled substance do you receive this or any other controlled medication from any other doctor or facility: Yes Ordering provider: Dean Date of last office visit: 08/29/22 Date of next office visit: 12/13/22 Date of last refill: (see medication tab): 04/10/22 Updated/Validated preferred pharmacy: Yes Patient instructed to contact the pharmacy prior to picking up the medication: Yes documented in this [facility]03-28-2023 Evaluation + Plan note* Assessment & Plan Note - Bernardino Moran MD - 08/29/2022 2:45 PM EDT Associated Problem(s): Anxiety Partial remission, continue Prozac 40 mg daily [facility] [id number] Miscellaneous Notes* Assessment & Plan Note - Bernardino Moran MD - 08/29/2022 2:45 PM EDTAssociated Problem(s): Anxiety Partial remission, continue Prozac 40 mg daily * Assessment & Plan Note - Bernardino Moran MD - 08/29/2022 2:44 PM EDT Associated Problem(s): Major depressive disorder, recurrent, unspecified (HCC) Partial remission, continue Prozac 40 mg daily * Assessment & Plan Note - Bernardino Moran MD - 08/29/2022 2:44 PM EDT Associated Problem(s): Forgetfulness Improved * Assessment & Plan Note - Bernardino Moran MD - 08/29/2022 2:43 PM EDT Associated Problem(s): Chronic insomnia We discussed her use of trazodone and since she was continuing to get 100 mg from psych we will continue that since she is no longer going to psych. She is to take 10 mg of melatonin along with her trazodone. documented in this [facility]03-28-2023 Evaluation + Plan note* Assessment & Plan Note - Bernardino Moran MD - 08/29/2022 2:44 PM EDT Associated Problem(s): Major depressive disorder, recurrent, unspecified (HCC) Partial remission, continue Prozac 40 mg daily [facility] [id number] Evaluation + Plan note* Assessment & Plan Note - Bernardino Moran MD - 08/29/2022 2:44 PM EDTAssociated Problem(s): Forgetfulness Improved [facility] [id number] Evaluation + Plan note* Assessment & Plan Note - Bernardino Moran MD - 08/29/2022 2:43 PM EDTAssociated Problem(s): Chronic insomnia We discussed her use of trazodone and since she was continuing to get 100 mg from psych we will continue that since she is no longer going to psych. She is to take 10 mg of melatonin along with her trazodone. [facility] [id number] History of Present illness Narrative* Bernardino Moran MD - 08/29/2022 10:45 AM EDT Images from the original note were not included. 08/29/2022 Alfie Hogan (: 1960) is a 61 y.o. female , Established patient, here for evaluation ofthe following chief complaint(s): Anxiety, Depression, Hypertension, Hyperlipidemia, GERD, Medication Check, and Other (Pt gives consent for virtual visit and understands visit will be billed to insurance) ASSESSMENT/PLAN: 1. Recurrent major depressive disorder, in partial remission (HCC) Assessment & Plan: Partial remission, continue Prozac 40 mg daily 2. Chronic insomnia Assessment & Plan: We discussed her use of trazodone and since she was continuing to get 100 mg from psych we will continue that since she is no longer going to psych. She is to take 10 mg of melatonin along with her trazodone. 3. Forgetfulness Assessment & Plan: Improved 4. Anxiety Assessment & Plan: Partial remission, continue Prozac 40 mg daily Follow up in about 2 weeks (around 09/12/2022). SUBJECTIVE/OBJECTIVE: Patient was seen today via Telehealth by agreement and consent in light of the current COVID-19 pandemic. I used the following Telehealth technology: Audio and video capabilities Patient location: Home. This patient encounter is appropriate and reasonable under the circumstances given the patient'sparticular presentation at this time. The patient has been advised of the potential risks and limitations of this mode of treatment (including but not limited to the absence of in-person examination)and has agreed to be treated in a remote fashion in spite of them. Any and all of the patient's/patient's family's questions on this issue have been answered and I have made no promises or guaranteesto the patient. The patient has also been advised to contact this office for worsening conditions or problems, and seek emergency medical treatment and/or call 911 if the patient deems either necessary. The patient stated that they are currently in the [facility]. If the patient is a minor, permission has been obtained by the parent or guardian for the patient to receive medical care at this visit. DHRUV Freeman calls in today for a telehealth video virtual visit because she stopped seeing her psych, they wanted to only give her 100 mg of trazodone and she says that her and her ex- are tryingto reconcile and she says that the psych counselor was telling her not to do that. She says she actually is feeling better now that she is felt in a long time but she keeps wanting to increase her trazodone back to 200 which I told her I would not do. She says she is only sleeping about 3 hours a night but then she turns around and says how good sheis feeling so I am not sure what to believe. Recommend that she take melatonin 10 mg daily at bedtime along with her current dose of trazodone. Review of Systems Constitutional: Negative for chills and fever. Respiratory: Negative for shortness of breath. Cardiovascular: Negative for chest pain and palpitations. Psychiatric/Behavioral: Positive for sleep disturbance. Negative for dysphoric mood. The patient isnot nervous/anxious. There were no vitals filed for this visit. Physical Exam Constitutional: General: She is not in acute distress. Appearance: Normal appearance. She is obese. Eyes: Extraocular Movements: Extraocular movements intact. Pupils: Pupils are equal, round, and reactive to light. Musculoskeletal: Cervical back: Neck supple. Neurological: Mental Status: She is alert. An electronic signature was used to authenticate this note. Bernardino Moran MD 08/29/2022 2:47 PM documented in this encounterSThe [facility] [id number] Telephone encounter Note* Telephone Encounter - Debbie Andrews MA - 08/22/2022 4:35 PM EDT I spoke to pt earlier today and notified her of this per separate TE. She has an appt next week andwants to discuss with Dr. Moran at that time. [facility] [id number] Miscellaneous Notes* Telephone Encounter - Debbie Andrews MA - 08/22/2022 4:35 PM EDT I spoke to pt earlier today and notified her of this per separate TE. She has an appt next week andwants to discuss with Dr. Moran at that time. * Telephone Encounter - Bernardino Moran MD - 08/22/2022 4:02 PM EDT Please make sure Kayce knows that if she quit seeing psych I am not going to prescribe that any different than they have been prescribing it 1 week at a time no matter where she gets it up. She needs to start listening to what the doctors are telling her and quit trying to take her meds in a way these are not prescribed. * Telephone Encounter - Nicole Gongora - 08/22/2022 3:47 PM EDT Spoke with Finn at [facility]. He states that the patients current dose of trazadone 100mg one at night. He said that the patient has also canceled her appointment with loni and in order to get more medication she will need seen by loni. Loni advised patient to get more active during the day so she would be tired enough to sleep at night. They also said that if she is given more thana weeks worth of the med at a time they are finding out that she is taking way over the prescribed amount. So if the patient does want to switch psych office's or pharmacies they suggest a placed that will do a week at a time like they do to keep the patient on what is best for her. Please advise. * Telephone Encounter - Debbie Andrews MA - 08/22/2022 8:27 AM EDT Notified, will discuss at OV next week. * Telephone Encounter - Debbie Andrews MA - 08/21/2022 11:50 AM EDT Bernardino Moran MD 9 minutes ago (11:41 AM) DW No, this medicine is not going to be refilled, she has been under the care of a psychiatrist and that is who is to be managing her psychiatric medications if she leaves she will have to get them somewhere else because I am not going to refill her psych medications. She cannot just keep changing physicians because they will not give her what she wants. They are giving her what is best for her. Left a message to return call. * Telephone Encounter - Bernardino Moran MD - 08/21/2022 11:41 AM EDT No, this medicine is not going to be refilled, she has been under the care of a psychiatrist and that is who is to be managing her psychiatric medications if she leaves she will have to get them somewhere else because I am not going to refill her psych medications. She cannot just keep changing physicians because they will not give her what she wants. They are giving her what is best for her. * Telephone Encounter - Erasto Ireland - 08/21/2022 8:45 AM EDT Patient also stated that she is currently out of this medication. Patient made appointment to review medications with Dr Moran on 08/29/22 at 10:45 am. Please advise * Telephone Encounter - Nicole Gongora - 08/21/2022 8:32 AM EDT I did not reach pharmacist on Sunday, patient has called back asking about refill what should we tell her? * Telephone Encounter - Erasto Ireland - 08/21/2022 8:31 AM EDT Patient calling to follow up on this refill request. Patient stated that she is no longer seeing Loni Ferrer NP in [place] that previously prescribed this medication. Patient is requesting PCP to prescribe this for her now and going forward. * Telephone Encounter - Bre Priest - 08/18/2022 3:09 PM EDT Message released to patient as written. Patient's further questions if applicable: Yes The patient is calling back in with a status update on the medication refill. The patient is requesting the refill go to [facility] and not [facility]. Please advise the patient. Were all questions from office addressed or relayed to the patient from encounter: No * Telephone Encounter - Nicole Gongora - 08/18/2022 12:25 PM EDT LM for Finn. * Telephone Encounter - Bernardino Moran MD - 08/18/2022 11:26 AM EDT Yes, that would be the appropriate thing to do * Telephone Encounter - Nicole Gongora - 08/18/2022 10:53 AM EDT Do you think we need to contact Finn from [facility] or her psych and let them know what is going on? * Telephone Encounter - Nicole Gongora - 08/18/2022 10:48 AM EDT I created a communication note and flag. What do you want us to tell patient? * Telephone Encounter - Bernardino Moran MD - 08/18/2022 10:42 AM EDT Thank you for the reminder, we got messages on his back on August 08 from the pharmacy, please make anote on her chart so that this does not get sent in by anybody else. * Telephone Encounter - Nicole Gongora - 08/18/2022 10:21 AM EDT Per pharmacist at [facility] who works side by side with patients therapist. Patient is not to be takingthis medication from anyone but her therapist. Please advise. * Telephone Encounter - Meredith Mosley - 08/18/2022 10:07 AM EDT Name of caller: Kayce Contact phone number: [phone] Relationship to Patient: patient Provider: Dr Moran Practice: [facility] Chief Complaint/Reason for Call: Kayce called in about her refill for trazadone. A refill request wassent to [facility] on 08/07/2022, however the pharmacy did not refill the medication. The pharmacy states that because this medication was called in originally by another provider they discontinuedthe refill. Kayce would like the refill request be sent to another pharmacy as she is switching pharma cies. Kayce would like it called in to [facility] in [place].Please send this in kay as patient is almost out of meds Best time of day caller can be reached: any Patient advised that office/PCP has 24-48 business hours to return their call: Yes documented in this encounterSThe MetroHealth [id number] Telephone encounter Note* Telephone Encounter - Bernardino Moran MD - 08/22/2022 4:02 PM EDT Please make sure Kayce knows that if she quit seeing psych I am not going to prescribe that any different than they have been prescribing it 1 week at a time no matter where she gets it up. She needs to start listening to what the doctors are telling her and quit trying to take her meds in a way these are not prescribed. [facility] [id number] Telephone encounter Note* Telephone Encounter - Nicloe Gongora - 08/22/2022 3:47 PM EDT Spoke with Finn at [facility]. He states that the patients current dose of trazadone 100mg one at night. He said that the patient has also canceled her appointment with loni and in order to get more medication she will need seen by loni. Loni advised patient to get more active during the day so she would be tired enough to sleep at night. They also said that if she is given more thana weeks worth of the med at a time they are finding out that she is taking way over the prescribed amount. So if the patient does want to switch psych office's or pharmacies they suggest a placed that will do a week at a time like they do to keep the patient on what is best for her. Please advise. [place] [id number] Telephone encounter Note* Telephone Encounter - Debbie Andrews MA - 08/22/2022 8:27 AM EDT Notified, will discuss at OV next week. [place] [id number] Telephone encounter Note* Telephone Encounter - Debbie Andrews MA - 08/21/2022 11:50 AM EDT Bernardino Moran MD 9 minutes ago (11:41 AM) DW No, this medicine is not going to be refilled, she has been under the care of a psychiatrist and that is who is to be managing her psychiatric medications if she leaves she will have to get them somewhere else because I am not going to refill her psych medications. She cannot just keep changing physicians because they will not give her what she wants. They are giving her what is best for her. Left a message to return call. [place] [id number] Telephone encounter Note* Telephone Encounter - Bernardino Moran MD - 08/21/2022 11:41 AM EDT No, this medicine is not going to be refilled, she has been under the care of a psychiatrist and that is who is to be managing her psychiatric medications if she leaves she will have to get them somewhere else because I am not going to refill her psych medications. She cannot just keep changing physicians because they will not give her what she wants. They are giving her what is best for her. [id number] Telephone encounter Note* Telephone Encounter - Erasto Ireland - 08/21/2022 8:45 AM EDT Patient also stated that she is currently out of this medication. Patient made appointment to review medications with Dr Moran on 08/29/22 at 10:45 am. Please advise [facility] [id number] Telephone encounter Note* Telephone Encounter - Nicole Gongora - 08/21/2022 8:32 AM EDT I did not reach pharmacist on Sunday, patient has called back asking about refill what should we tell her? [facility] [id number] Telephone encounter Note* Telephone Encounter - Erasto Ireland - 08/21/2022 8:31 AM EDT Patient calling to follow up on this refill request. Patient stated that she is no longer seeing Loni Ferrer NP in [place] that previously prescribed this medication. Patient is requesting PCP to prescribe this for her now and going forward. [facility] [id number] Telephone encounter Note* Telephone Encounter - Bre Priest - 08/18/2022 3:09 PM EDT Message released to patient as written. Patient's further questions if applicable: Yes The patient is calling back in with a status update on the medication refill. The patient is requesting the refill go to [facility] and not [facility]. Please advise the patient. Were all questions from office addressed or relayed to the patient from encounter: No [facility] [id number] Telephone encounter Note* Telephone Encounter - Nicole Gongora - 08/18/2022 12:25 PM EDT STEPHANIE for Finn. [place] [id number] Telephone encounter Note* Telephone Encounter - Bernardino Moran MD - 08/18/2022 11:26 AM EDT Yes, that would be the appropriate thing to do [place] [id number] Telephone encounter Note* Telephone Encounter - Nicole Gongora - 08/18/2022 10:53 AM EDT Do you think we need to contact Finn from [facility] or her psych and let them know what is going on? [place] [id number] Telephone encounter Note* Telephone Encounter - Nicole Gongora - 08/18/2022 10:48 AM EDT I created a communication note and flag. What do you want us to tell patient? [place] [id number] Telephone encounter Note* Telephone Encounter - Bernardino Moran MD - 08/18/2022 10:42 AM EDT Thank you for the reminder, we got messages on his back on August 08 from the pharmacy, please make anote on her chart so that this does not get sent in by anybody else. [place] [id number] Telephone encounter Note* Telephone Encounter - Nicole Gongora - 08/18/2022 10:21 AM EDT Per pharmacist at [facility] who works side by side with patients therapist. Patient is not to be takingthis medication from anyone but her therapist. Please advise. [place] [id number] Telephone encounter Note* Telephone Encounter - Meredith Mosley - 08/18/2022 10:07 AM EDT Name of caller: Kayce Contact phone number: [phone] Relationship to Patient: patient Provider: Dr Moran Practice: [facility] Chief Complaint/Reason for Call: Kayce called in about her refill for trazadone. A refill request wassent to [facility] on 08/07/2022, however the pharmacy did not refill the medication. The pharmacy states that because this medication was called in originally by another provider they discontinuedthe refill. Kayce would like the refill request be sent to another pharmacy as she is switching pharma cies. Kayce would like it called in to [facility] in [place].Please send this in kay as patient is almost out of meds Best time of day caller can be reached: any Patient advised that office/PCP has 24-48 business hours to return their call: Yes [facility] [id number] Telephone encounter Note* Telephone Encounter - Bernardino Moran MD - 08/15/2022 11:23 AM EDT Rx has been sent [facility] [id number] Miscellaneous Notes* Telephone Encounter - Bernardino Moran MD - 08/15/2022 11:23 AM EDT Rx has been sent * Telephone Encounter - Debbie Andrews MA - 08/15/2022 10:13 AM EDT There is already a separate refill request routed to you for this. * Telephone Encounter - Nisa Diane RN - 08/15/2022 9:38 AM EDT S: Patient spoke with [facility] nurse regarding Rx for Sactura. B: Onset of symptoms/concern began today. A: Patient stated Sanctura 20 mg is working wonderfully for her. She [facility] a partial [facility]. When she called to get the rest of the Rx, she was told that the Rx was canceled. I do not see a cancellation notice of the Rx in the chart. R: Spoke to [facility], who said that Rx was canceled on 08/07. If it was not supposed to be canceled, they need a new Rx sent in for the Sanctura 20 mg. If it can be sent in before 11a today, patient can receive the med this afternoon. Relayed information from pharmacy to patient. Please call patient back at when Rx is sent in to pharmacy or with further recommendations. No further needs at this time. Patient instructed to call back with new or worsening symptoms. Reason for Disposition Caller has NON-URGENT medicine question about med that PCP prescribed and triager unable to answer question Protocols used: Medication Refill and Renewal Empt-CLLIA-II documented in this encounterSThe MetroHealth [id number] Telephone encounter Note* Telephone Encounter - Debbie Andrews MA - 08/15/2022 10:13 AM EDT There is already a separate refill request routed to you for this. [facility] [id number] Telephone encounter Note* Telephone Encounter - Nisa Diane RN - 08/15/2022 9:38 AM EDT S: Patient spoke with [facility] nurse regarding Rx for Sactura. B: Onset of symptoms/concern began today. A: Patient stated Sanctura 20 mg is working wonderfully for her. She received a partial Rx from [facility]. When she called to get the rest of the Rx, she was told that the Rx was canceled. I do not see a cancellation notice of the Rx in the chart. R: Spoke to [facility], who said that Rx was canceled on 08/07. If it was not supposed to be canceled, they need a new Rx sent in for the Sanctura 20 mg. If it can be sent in before 11a today, patient can receive the med this afternoon. Relayed information from pharmacy to patient. Please call patient back at when Rx is sent in to pharmacy or with further recommendations. No further needs at this time. Patient instructed to call back with new or worsening symptoms. Reason for Disposition Caller has NON-URGENT medicine question about med that PCP prescribed and triager unable to answer question Protocols used: Medication Refill and Renewal [id number] [facility] [id number] Telephone encounter Note* Telephone Encounter - SUZY Bush CNP - 07/04/2022 3:31 PM EST Reviewed chart. Refill appropriate. RX sent. [facility] [id number] Miscellaneous Notes* Telephone Encounter - SUZY Bush CNP - 07/04/2022 3:31 PM EST Reviewed chart. Refill appropriate. RX sent. * Telephone Encounter - Larisa Anders - 07/04/2022 9:10 AM EST Medication name: rivastigmine (EXELON) 4.6 MG/24HR Medication dosage: 4.6 mg (Miligrams)/24HR Monthly quantity needed: 30 How many day supply requestin days Medication route: topical (on skin) Medication administration time(s): daily If taking medication PRN, reason for taking medication: N/A If this is a controlled substance do you receive this or any other controlled medication from any other doctor or facility: No Ordering provider: Dean Date of last office visit: 06/07/2022 Date of next office visit: 12/13/2022 Date of last refill: (see medication tab): 11/29/2021 Updated/Validated preferred pharmacy: Yes Patient instructed to contact the pharmacy prior to picking up the medication: No documented in this [facility]01-31-2023 Telephone encounter Note* Telephone Encounter - Larisa Anders - 07/04/2022 9:10 AM EST Medication name: rivastigmine (EXELON) 4.6 MG/24HR Medication dosage: 4.6 mg (Miligrams)/24HR Monthly quantity needed: 30 How many day supply requestin days Medication route: topical (on skin) Medication administration time(s): daily If taking medication PRN, reason for taking medication: N/A If this is a controlled substance do you receive this or any other controlled medication from any other doctor or facility: No Ordering provider: Dean Date of last office visit: 06/07/2022 Date of next office visit: 12/13/2022 Date of last refill: (see medication tab): 11/29/2021 Updated/Validated preferred pharmacy: Yes Patient instructed to contact the pharmacy prior to picking up the medication: No [facility] [id number] Evaluation + Plan note* Assessment & Plan Note - Bernardino Moran MD - 06/07/2022 3:08 PM ESTAssociated Problem(s): Anxiety Partial remission continue fluoxetine and follow-up with psychiatry as needed. [facility] [id number] Evaluation + Plan note* Assessment & Plan Note - Bernardino Moran MD - 06/07/2022 3:08 PM ESTAssociated Problem(s): Current moderate episode of major depressive disorder without prior episode (HCC) Partial remission, continue fluoxetine 80 mg and follow-up with psychiatry as needed [facility] [id number] Evaluation + Plan note* Assessment & Plan Note - Bernardino Moran MD - 06/07/2022 3:08 PM ESTAssociated Problem(s): Hyperlipidemia Controlled, continue rosuvastatin 40 mg [facility] [id number] Miscellaneous Notes* Assessment & Plan Note - Bernardino Moran MD - 06/07/2022 3:08 PM ESTAssociated Problem(s): Anxiety Partial remission continue fluoxetine and follow-up with psychiatry as needed. * Assessment & Plan Note - Bernardino Moran MD - 06/07/2022 3:08 PM EST Associated Problem(s): Current moderate episode of major depressive disorder without prior episode (HCC) Partial remission, continue fluoxetine 80 mg and follow-up with psychiatry as needed * Assessment & Plan Note - Bernardino Moran MD - 06/07/2022 3:08 PM EST Associated Problem(s): Hyperlipidemia Controlled, continue rosuvastatin 40 mg * Assessment & Plan Note - Bernardino Moran MD - 06/07/2022 3:07 PM EST Associated Problem(s): Hematoma (nontraumatic) of breast We will check clotting and CBC * Assessment & Plan Note - Bernardino Moran MD - 06/07/2022 3:07 PM EST Associated Problem(s): Urinary frequency UA is clear, will start her on oxybutynin 10 mg daily * Assessment & Plan Note - Bernardino Moran MD - 06/07/2022 3:07 PM EST Associated Problem(s): Stage 1 chronic kidney disease Stable, repeat lab work today * Assessment & Plan Note - Bernardino Moran MD - 06/07/2022 3:06 PM EST Associated Problem(s): GERD (gastroesophageal reflux disease) Controlled, continue Protonix 40 mg daily * Assessment & Plan Note - Bernardino Moran MD - 06/07/2022 3:05 PM EST Associated Problem(s): Essential hypertension Blood pressure was significantly elevated today, recheck was significantly improved although still slightly elevated, continue clonidine 0.1 mg * Assessment & Plan Note - Bernardino Moran MD - 06/07/2022 3:05 PM EST Associated Problem(s): Asthma Stable, continue albuterol as needed * Assessment & Plan Note - Bernardino Moran MD - 06/07/2022 3:05 PM EST Associated Problem(s): Bronchitis Zithromax Z-Guevara take as directed * Assessment & Plan Note - Bernardino Moran MD - 06/07/2022 3:05 PM EST Associated Problem(s): GENNARO (obstructive sleep apnea) Stable on CPAP * Assessment & Plan Note - Bernardino Moran MD - 06/07/2022 3:04 PM EST Associated Problem(s): Chronic insomnia Uncontrolled, recommend she contact her psychiatrist to see about increasing her trazodone documented in this [facility]01-04-2023 Evaluation + Plan note* Assessment & Plan Note - Bernardino Moran MD - 06/07/2022 3:07 PM EST Associated Problem(s): Hematoma (nontraumatic) of breast We will check clotting and CBC [facility] [id number] Evaluation + Plan note* Assessment & Plan Note - Bernardino Moran MD - 06/07/2022 3:07 PM ESTAssociated Problem(s): Urinary frequency UA is clear, will start her on oxybutynin 10 mg daily [facility] [id number] Evaluation + Plan note* Assessment & Plan Note - Bernardino Moran MD - 06/07/2022 3:07 PM ESTAssociated Problem(s): Stage 1 chronic kidney disease Stable, repeat lab work today [facility] [id number] Evaluation + Plan note* Assessment & Plan Note - Bernardino Moran MD - 06/07/2022 3:06 PM ESTAssociated Problem(s): GERD (gastroesophageal reflux disease) Controlled, continue Protonix 40 mg daily [facility]01-04-2023 Evaluation + Plan note* Assessment & Plan Note - Bernardino Moran MD - 06/07/2022 3:05 PM ESTAssociated Problem(s): Essential hypertension Blood pressure was significantly elevated today, recheck was significantly improved although still slightly elevated, continue clonidine 0.1 mg [facility]01-04-2023 Evaluation + Plan note* Assessment & Plan Note - Bernardino Moran MD - 06/07/2022 3:05 PM ESTAssociated Problem(s): Asthma Stable, continue albuterol as needed [facility]01-04-2023 Evaluation + Plan note* Assessment & Plan Note - Bernardino Moran MD - 06/07/2022 3:05 PM ESTAssociated Problem(s): Bronchitis Zithromax Z-Guevara take as directed [facility]01-04-2023 Evaluation + Plan note* Assessment & Plan Note - Bernardino Moran MD - 06/07/2022 3:05 PM ESTAssociated Problem(s): GENNARO (obstructive sleep apnea) Stable on CPAP [facility]01-04-2023 Evaluation + Plan note* Assessment & Plan Note - Bernardino Moran MD - 06/07/2022 3:04 PM ESTAssociated Problem(s): Chronic insomnia Uncontrolled, recommend she contact her psychiatrist to see about increasing her trazodone [facility]01-04-2023 History of Present illness Narrative* Li Fern, MA - 06/07/2022 10:00 AM EST Patient verified by last name and date of . Patient wants a weed thinner in the room during during the visit. 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 [place] [id number] [facility] [address] [facility] [address] Visit type: Established Patient Reason for Visit: Medicare Annual Wellness Visit Subsequent (Pt asking for potassium to be changed from a liquid to a pill), Blood Work, Health Maintenance (Pt refused- hep c/hiv screen, mammogram order, covd 3 vaccine/Pt agreed to - flu vaccine and shingles script), Black or Bloody Stool, Insomnia(Only getting about 4hrs of sleep at the most per night //Pt asking for temazepam to help her sleepdue to Trazadone not helping ), and UTI Assessment and Plan Problem List Items Addressed This Visit 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 Chronic insomnia Uncontrolled, recommend she contact her psychiatrist to see about increasing her trazodone GENNARO (obstructive sleep apnea) Stable on CPAP Respiratory Bronchitis Zithromax Z-Guevara take as directed Relevant Orders Handicap Placard Asthma Stable, continue albuterol as needed Circulatory Essential hypertension - Primary Blood pressure was significantly elevated today, recheck was significantly improved although still slightly elevated, continue clonidine 0.1 mg Digestive GERD (gastroesophageal reflux disease) Controlled, continue Protonix 40 mg daily Genitourinary Stage 1 chronic kidney disease Stable, repeat lab work today Relevant Orders Comprehensive metabolic panel Other Urinary frequency UA is clear, will start her on oxybutynin 10 mg daily Relevant Orders POCT urinalysis dipstick manually resulted (Completed) Hematoma (nontraumatic) of breast We will check clotting and CBC Relevant Orders CBC auto differential Protime-INR APTT Hyperlipidemia Controlled, continue rosuvastatin 40 mg Relevant Orders Lipid panel Current moderate episode of major depressive disorder without prior episode (HCC) Partial remission, continue fluoxetine 80 mg and follow-up with psychiatry as needed Anxiety Partial remission continue fluoxetine and follow-up with psychiatry as needed. Other Visit Diagnoses Medicare annual wellness visit, initial Screening for diabetes mellitus Relevant Orders Comprehensive metabolic panel Follow up in about 6 months (around 12/05/2022). Laury Devries comes in today for her annual Medicare well visit actually I believe this is her initial she has had part A but now she has part B. She has multiple complaints she says she is urinating about every 30 minutes,, she denies any dysuria just frequency. She also continues to have difficulty with sleeping but her psychiatrist is 1 managing her depression and her insomnia so she is going to contact them today. She needs fasting lab work and we reviewed her other health issues which includes dementia, asthma which is stable, sleep apnea chronic kidney disease hypercholesterolemia and she has a large area ofecchymosis/hematoma on her left breast that she does not remember any specific injury. She also says she has been coughing up sputum that has yellowish color to it. I have reviewed and reconciled the medication list with the patient today. Current Outpatient Medications Medication Sig Dispense Refill albuterol (Ventolin HFA) 108 (90 Base) MCG/ACT inhaler Inhale 2 puffs every 4 hours as needed for wheezing or shortness of breath. 8 g 5 cloNIDine (Catapres) 0.1 MG tablet Take 1 tablet (0.1 mg) by mouth in the morning and 1 tablet (0.1mg) before bedtime. 180 tablet 1 FLUoxetine (PROzac) 40 MG capsule Take 40 mg by mouth daily. hydrOXYzine pamoate (Vistaril) 50 MG capsule take 1 capsule by mouth every 8 hours if needed mometasone-formoterol (Dulera 100) 100-5 MCG/ACT inhaler Inhale 2 puffs in the morning and 2 puffs in the evening. 13 g 5 NON FORMULARY Bipap machine pantoprazole (ProtoNix) 40 MG EC tablet Take 40 mg by mouth in the morning. rivastigmine (Exelon) 1.5 MG capsule Take 1.5 mg by mouth 2 times daily. traZODone (Desyrel) 100 MG tablet Take 100 mg by mouth Nightly. azithromycin (Zithromax Z-Guevara) 250 MG tablet Take as directed 6 tablet 0 folic acid (Folvite) 1 MG tablet TAKE 1 TABLET BY MOUTH DAILY 30 tablet 0 guaiFENesin (Mucinex) 600 MG 12 hr tablet Take 2 tablets (1,200 mg) by mouth 2 times daily. Do not crush, chew, or split. 120 tablet 0 magnesium oxide (Mag-Ox) 400 (240 Mg) MG tablet TAKE 1 TABLET BY MOUTH DAILY 30 tablet 0 memantine (Namenda) 5 MG tablet TAKE 1 TABLET BY MOUTH DAILY 30 tablet 0 oxybutynin XL (Ditropan XL) 10 MG 24 hr tablet Take 1 tablet (10 mg) by mouth daily. Do not crush, chew, or split. 30 tablet 2 potassium chloride 40 MEQ/15ML (20%) solution TAKE 7.5ML BY MOUTH TWICE A DAY 420 mL 0 rosuvastatin (Crestor) 40 MG tablet TAKE 1 TABLET BY MOUTH AT BEDTIME 30 tablet 0 thiamine (Vitamin B-1) 100 MG tablet TAKE 1 TABLET BY MOUTH DAILY 30 tablet 0 zoster vaccine-recombinant adjuvanted (Shingrix) 50 MCG/0.5ML vaccine Inject 0.5 mL (50 mcg) into the shoulder, thigh, or buttocks Once for 1 dose. 0.5 mL 0 No current facility-administered medications for this visit. Medications Discontinued During This Encounter Medication Reason benztropine (Cogentin) 0.5 MG tablet Therapy completed Docusate Sodium (DSS) 100 MG capsule Therapy completed promethazine (Phenergan) 25 MG tablet Therapy completed QUEtiapine (SEROquel) 200 MG tablet Therapy completed rivastigmine (Exelon) 4.6 MG/24HR Therapy completed magnesium oxide (Mag-Ox) 400 (241.3 Mg) MG tablet Therapy completed magnesium oxide (Mag-Ox) 400 MG tablet Therapy completed memantine (Namenda) 5 MG tablet Therapy completed pantoprazole (ProtoNix) 40 MG EC tablet Therapy completed prochlorperazine (Compazine) 10 MG tablet Therapy completed List of current healthcare providers: Patient Care Team: Bernardino Moran MD as PCP - General The following health maintenance schedule was reviewed with the patient and provided in printed form in the after visit summary: Health Maintenance Topic Date Due Hepatitis B Vaccines (1 of 3 - 3-dose series) Never done HIV Screening Never done Hepatitis A Vaccines (1 of 2 - Risk 2-dose series) Never done MMR Vaccines (1 of 1 - Standard series) Never done Hepatitis C Screening Never done Diabetes Screening Never done Mammogram Never done Zoster Vaccines (1 of 2) Never done COVID-19 Vaccine (3 - Booster for Pfizer series) 08/09/2021 Influenza Vaccine (1) 02/02/2022 DTaP/Tdap/Td Vaccines (2 - Td or Tdap) 07/29/2023 Lipid Panel 11/26/2025 Pneumococcal Vaccine: Pediatrics (0 to 5 Years) and At-Risk Patients (6 to 64 Years) (3 - PPSV23 ifavailable, else PCV20) 2026 Colorectal Cancer Screening 01/08/2029 HIB Vaccines Aged Out IPV Vaccines Aged Out Meningococcal Vaccine Aged Out Rotavirus Vaccines Aged Out HPV Vaccines Aged Out Orders Placed This Encounter Procedures Handicap Placard 5 years2027 Order Specific Question: The face to face evaluation was performed on Answer: 06/07/2022 Lipid panel Standing Status: Future Number of Occurrences: 1 Standing Expiration Date: 06/02/2023 Comprehensive metabolic panel Standing Status: Future Number of Occurrences: 1 Standing Expiration Date: 06/02/2023 CBC auto differential Standing Status: Future Number of Occurrences: 1 Standing Expiration Date: 06/07/2023 Protime-INR Standing Status: Future Number of Occurrences: 1 Standing Expiration Date: 06/07/2023 APTT Standing Status: Future Number of Occurrences: 1 Standing Expiration Date: 06/07/2023 POCT urinalysis dipstick manually resulted Health Risk Assessment: General In general, how would you say your health is?: Fair In the past 7 days, have you experienced any of the following: New or Increased Pain, New or Increased Fatigue, Loneliness, Social Isolation, Stress or Anger?: No Do you get the social and emotional suppport you need?: Yes Interventions: Health Habits / Nutrition On average, how many days per week do you engage in moderate to strenous exercise (like a brisk walk)?: (!) 0 days On average, how man minutes do you engage in exercise at this level?: (!) 0 min Have you lost any weight without trying in the past 3 months? : Yes Have you seen the dentist within the past year?: (!) No Interventions: Dental exam overdue: has seen a dentist, has hd a root canal Hearing / Vision Do you or your family notice any trouble with your hearing that hasn't been managed with hearing aids?: No Do you have difficulty driving, watching TV, or doing any of your daily activities because of your eyesight?: No Have you had an eye exam within the past year?: (!) No No results found. Interventions: Vision concerns: Patient encouraged to make appointment with his / her human services care specialist Safety Do you have a working smoke detector?: Yes Do you have any tripping hazards - loose or unsecured carpets or rugs?: (!) Yes Do you have any tripping hazards - clutter in doorways, halls, or stairs?: No Do you have either shower bars, grab bars, non-slip mats or non-slip surfaces in your shower or bathtub? : Yes Do all your stairways have a railing or banister? : Not Applicable Do you fasten your seatbelt when you are in a car?: (!) No Interventions: Home safety tips provided ADL In the past 7 days, did you need help from others to perform any of the following everyday activities: Eating, dressing, grooming,bathing, toileting, or walking / balance? : No In the past 7 days, did you need help from others to take care of any of the following: laundry, housekeeping, banking / finances,shopping, telephone use, food preparation, transportation, or taking medications? : No Interventions: Living Will Do you have a living will?: Yes Interventions: Cognitive: Cognitive Screening: Mini-Cog Clock Drawing Test (CDT): 2 Words Recalled: 3 Total Score: 5 Total Score Interpretation: Normal Mini-Cog Interventions: Fall Risk: Interventions: Had fall with ankle fracture Depression Screening: Over the past 2 weeks, how often have you been bothered by any of the following problems? Little interest or pleasure in doing things: Not at all Feeling down, depressed, or hopeless: More than half the days Patient Health Questionnaire-2 Score: 2 If you checked off any problems on this questionnaire so far, How difficult have these problems made it for you to do your work, take care of things at home, or get along with other people?: Not difficult at all Interventions: Tobacco Use: Social History Tobacco Use Smoking Status Former Packs/day: 0.50 Types: Cigarettes Quit date: 06/04/2005 Years since quittin.0 Smokeless Tobacco Never Interventions: Alcohol Use: Audit Alcohol Screening Q2: How many drinks containing alcohol do you have on a typical day when you are drinking?: Patientdoes not drink Interventions: Drug Use: Drug Abuse Screening Test (DAST-10) Have you used drugs other than those required for medical reasons?: No Interventions: Review of Systems Constitutional: Negative for chills and fever. Respiratory: Negative for shortness of breath. Cardiovascular: Negative for chest pain and palpitations. Gastrointestinal: Negative for abdominal pain, blood in stool, constipation and diarrhea. Genitourinary: Negative for dyspareunia, dysuria, frequency, hematuria and urgency. Neurological: Negative for weakness and numbness. Psychiatric/Behavioral: Negative for dysphoric mood. The patient has insomnia. The patient is not nervous/anxious. Immunization History Administered Date(s) Administered Influenza, Unspecified 03/29/2013, 02/19/2017, 01/28/2018, 03/07/2021 Influenza, injectable, quadrivalent 02/19/2017 Influenza, injectable, quadrivalent, preservative free 02/12/2019, 04/13/2020 Influenza, seasonal, injectable 02/24/2014 PPD Test 07/30/2021, 01/07/2022 Pfizer SARS-CoV-2 Vaccination 03/07/2021, 06/14/2021 Pneumococcal Conjugate PCV 13 09/04/2011 Pneumococcal Polysaccharide PPSV23 09/09/2011 Tdap 07/29/2013 Allergies Allergen Reactions Cat Hair Extract Other reaction(s): Other: See Comments Dust Mite Extract Oxycodone-Acetaminophen Itching Penicillins Pollen Extract And ragweed Seasonal Ic [Cholestatin] Other reaction(s): itchy eyes Outpatient Medications Prior to Visit Medication Sig Dispense Refill albuterol (Ventolin HFA) 108 (90 Base) MCG/ACT inhaler Inhale 2 puffs every 4 hours as needed for wheezing or shortness of breath. 8 g 5 cloNIDine (Catapres) 0.1 MG tablet Take 1 tablet (0.1 mg) by mouth in the morning and 1 tablet (0.1mg) before bedtime. 180 tablet 1 FLUoxetine (PROzac) 40 MG capsule Take 40 mg by mouth daily. hydrOXYzine pamoate (Vistaril) 50 MG capsule take 1 capsule by mouth every 8 hours if needed mometasone-formoterol (Dulera 100) 100-5 MCG/ACT inhaler Inhale 2 puffs in the morning and 2 puffs in the evening. 13 g 5 NON FORMULARY Bipap machine pantoprazole (ProtoNix) 40 MG EC tablet Take 40 mg by mouth in the morning. rivastigmine (Exelon) 1.5 MG capsule Take 1.5 mg by mouth 2 times daily. traZODone (Desyrel) 100 MG tablet Take 100 mg by mouth Nightly. folic acid (Folvite) 1 MG tablet TAKE 1 TABLET BY MOUTH DAILY 30 tablet 0 magnesium oxide (Mag-Ox) 400 (240 Mg) MG tablet TAKE 1 TABLET BY MOUTH DAILY 30 tablet 0 memantine (Namenda) 5 MG tablet TAKE 1 TABLET BY MOUTH DAILY 30 tablet 0 potassium chloride 40 MEQ/15ML (20%) solution TAKE TAKE 7.5ML BY MOUTH TWICE A DAY prochlorperazine (Compazine) 10 MG tablet Take 1 tablet (10 mg) by mouth every 6 hours as needed for nausea. 30 tablet 1 rosuvastatin (Crestor) 40 MG tablet TAKE 1 TABLET BY MOUTH AT BEDTIME 30 tablet 0 thiamine (Vitamin B-1) 100 MG tablet TAKE 1 TABLET BY MOUTH DAILY 30 tablet 0 benztropine (Cogentin) 0.5 MG tablet Take 1 tablet by mouth 2 times daily as needed. Docusate Sodium (DSS) 100 MG capsule Take 1 capsule by mouth Daily as needed. magnesium oxide (Mag-Ox) 400 (241.3 Mg) MG tablet Take 400 mg by mouth daily. magnesium oxide (Mag-Ox) 400 MG tablet Take 1 tablet by mouth daily. memantine (Namenda) 5 MG tablet Take 1 tablet by mouth daily. pantoprazole (ProtoNix) 40 MG EC tablet Take 1 tablet by mouth every morning. promethazine (Phenergan) 25 MG tablet Take 1 tablet by mouth every 8 hours as needed. QUEtiapine (SEROquel) 200 MG tablet Take 1 tablet by mouth Nightly. rivastigmine (Exelon) 4.6 MG/24HR Place 1 patch on the skin daily. No facility-administered medications prior to visit. Past Medical History: Diagnosis Date Alcohol dependence with uncomplicated withdrawal (HCC) 07/07/2020 Anxiety Bronchiectasis (HCC) COPD exacerbation (CMS/HCC) (HCC) 10/24/2019 Depression Diastolic heart failure (HCC) Dizziness 11/09/2020 Fall 11/21/2020 Hypertension Kidney disease Kidney failure 01/09/2019 Kidney stone Oxygen decrease Currently on Home oxygen, uses with exertion Pulmonary hypertension (HCC) Weakness 11/21/2020 Social History Socioeconomic History Marital status: Tobacco Use Smoking status: Former Packs/day: 0.50 Types: Cigarettes Quit date: 06/04/2005 Years since quittin.0 Smokeless tobacco: Never Vaping Use Vaping Use: Never used Substance and Sexual Activity Alcohol use: Not Currently Drug use: No Social Determinants of Health Financial Resource Strain: Low Risk Difficulty of Paying Living Expenses: Not hard at all Food Insecurity: No Food Insecurity Worried About Running Out of Food in the Last Year: Never true Ran Out of Food in the Last Year: Never true Transportation Needs: No Transportation Needs Lack of Transportation (Medical): No Lack of Transportation (Non-Medical): No Past Surgical History: Procedure Laterality Date ANKLE SURGERY Right 07/19/2021 APPENDECTOMY 2003 BACK SURGERY CHOLECYSTECTOMY 2004 EXTREMITY SURGERY Left 07/2021 HERNIA REPAIR 1972 JOINT REPLACEMENT Bilateral hips TENDON RELEASE Right Right arm TONSILLECTOMY (HISTORICAL) 1966 TOTAL ABDOMINAL HYSTERECTOMY 2001 Past Surgical History: Procedure Laterality Date ANKLE SURGERY Right 07/19/2021 APPENDECTOMY 2003 BACK SURGERY CHOLECYSTECTOMY 2004 EXTREMITY SURGERY Left 07/2021 HERNIA REPAIR 1972 JOINT REPLACEMENT Bilateral hips TENDON RELEASE Right Right arm TONSILLECTOMY (HISTORICAL) 1966 TOTAL ABDOMINAL HYSTERECTOMY 2001 Family History Problem Relation Name Age of Onset Mental illness Mother Cancer Mother pancreatic High Blood Pressure Father Cancer Father colon Objective BP (!) 156/92 Pulse (!) 115 Ht 5' 8 (1.727 m) Wt 217 lb (98.4 kg) SpO2 95% BMI 32.99 kg/m Physical Exam Vitals and nursing note reviewed. Constitutional: General: She is not in acute distress. Appearance: Normal appearance. HENT: Head: Normocephalic. Right Ear: Tympanic membrane, ear canal and external ear normal. Left Ear: Tympanic membrane, ear canal and external ear normal. Mouth/Throat: Mouth: Mucous membranes are moist. Pharynx: Oropharynx is clear. Eyes: Extraocular Movements: Extraocular movements intact. Pupils: Pupils are equal, round, and reactive to light. Neck: Vascular: No carotid bruit. Cardiovascular: Rate and Rhythm: Normal rate and regular rhythm. Heart sounds: Normal heart sounds. No murmur heard. Pulmonary: Effort: Pulmonary effort is normal. Breath sounds: Normal breath sounds. Abdominal: General: Bowel sounds are normal. Palpations: Abdomen is soft. Musculoskeletal: General: Normal range of motion. Cervical back: Normal range of motion. Lymphadenopathy: Cervical: No cervical adenopathy. Skin: General: Skin is warm and dry. Neurological: General: No focal deficit present. Mental Status: She is alert and oriented to person, place, and time. Psychiatric: Mood and Affect: Mood normal. Data Reviewed Labs: Imaging/Testing: Bernardino Moran MD 06/07/2022 3:09 PM documented in this [facility]12-30-2022 Telephone encounter Note* Telephone Encounter - SUZY Barrera CNP - 06/02/2022 11:36 AM EST Rx sent. [id number] Miscellaneous Notes* Telephone Encounter - SUZY Barrera CNP - 06/02/2022 11:36 AM EST Rx sent. Follow up as scheduled. * Telephone Encounter - Nicole Gongora - 06/02/2022 11:10 AM EST Prescription Request: Last medication check: 11/29/2021 Last physical exam: 11/26/2020 Next scheduled appointment: 06/07/2022 CSA on file (date): none Last urine drug screen: none Last date of refill on this medication 03/13/2022 30 days 1 refill documented in this [facility]12-30-2022 Telephone encounter Note* Telephone Encounter - Nicole Gongora - 06/02/2022 11:10 AM EST Prescription Request: Last medication check: 11/29/2021 Last physical exam: 11/26/2020 Next scheduled appointment: 06/07/2022 CSA on file (date): none Last urine drug screen: none Last date of refill on this medication 03/13/2022 30 days 1 refill [employer] [id number] NoteMR#: [id number] I [facility] Pt. Name: Alfie Hogan Admitted: 04/24/2021 Discharged: 05/05/2021 Date of : 1960 Physician: Vitaly Salomon MD DISCHARGE SUMMARY ADDENDUM: The patient is discharged in stable condition. Physical examination on day of discharge was unchanged. The patient's memantine dose is increased to 10 mg from 5 mg daily. Electronically Signed by: Vitaly Salomon MD 05/06/2021 01:04 P Vitaly Salomon MD Date Dict: 05/05/2021/01:44 P/Vitaly Salomon MD Date Trans: 05/05/2021 01:51 P/fer [id number] cc: Itz Tapia [address] [place] [address] [id number]29[facility] NoteMR#: [id number] I [facility] Pt. Name: Alfie Hogan Admitted: 04/24/2021 Discharged: 05/05/2021 Date of : 1960 Physician: Rajinder Cerrato MD DISCHARGE SUMMARY PRINCIPAL DIAGNOSES: 1. Syncopal episodes, most likely secondary to orthostatic changes. 2. 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 3. ETOH abuse for over 20 years, sober for the last 6 months. 4. Pulmonary hypertension, on 3 L. 5. Chronic kidney disease. 6. Low TSH with normal free T4. 7. Pancytopenia with lymphopenia and neutropenia. 8. Anxiety. HOSPITAL COURSE: The patient again was admitted to the hospital on April 23, 2021, for syncopal episodes. An extensive workup was done and felt to be related to orthostatic changes. The patient has echocardiogram, which showed EF of 50% to 55%.. Regarding her cognitive impairment, the patient was evaluated by Neurology team as well as psychiatric team and they felt the patient's presentation consistent with Korsakoff psychosis with possible Korsakoff dementia related to chronic alcohol use at one time over 20 years. The patient has also as a consequence, also some gait instability. Recommendation, the patient to be evaluated by PMR and PT, OT and upon discharge to follow up with [facility] in 2-3 weeks. During her hospital stay, also the patient had a picture of pancytopenia with lymphopenia, neuropenia and she is going today May 02, 2021 by Oncology team to have bone marrow biopsy. Of note, the patient had workup for that. Peripheral smear consistent with normocytic anemia with no blast cells and negative HIV as well as negative Parvo B19 IgM. The patient also had iron study consistent with chronic disease as well as she was tested for COVID-19 and came back negative. Again, the addendum will be to my final summary by my colleague taking over tomorrow and to add findings of the bone marrow biopsy before discharge. Addendum to follow my summary as well with the next physician. Electronically Signed by: Rajinder Cerrato MD 05/10/2021 12:48 P Rajinder Cerrato MD Date Dict: 05/02/2021/12:55 P/Rajinder Cerrato MD Date Trans: 05/02/2021 01:24 P/fer [id number] cc: Itz Tapia [address] [place] [id number]11-17-2021 NoteMR#: [id number] I [facility] Pt. Name: Alfie Hogan Admitted: 04/10/2021 Discharged: 04/20/2021 Date of : 1960 Physician: Rob Scruggs MD DISCHARGE SUMMARY PRIMARY CARE PHYSICIAN: Dr. Nicole. CONSULTING PHYSICIANS: 1. Neurology. 2. Psychiatry. FINAL DIAGNOSES: 1. 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 2. Generalized anxiety disorder, stable. 3. Opiate dependence. 4. Alcohol dependence. SECONDARY DIAGNOSIS: Chronic hypoxemic respiratory failure, underlying severe pulmonary hypertension. HOSPITAL COURSE: This is a 60-year-old female with past medical history of pulmonary hypertension/chronic hypoxemic respiratory failure related to pulmonary hypertension, alcohol/opioid dependence, admitted to the hospital for abdominal pain, lack of bowel movement almost 2 weeks. The patient has been living in alcohol rehab place and did not drink for almost 2 months. The patient was admitted for close monitoring of further management. For abdominal pain, the patient had abdominal CT done with IV contrast, which revealed no acute bowel obstruction. There was uncomplicated chronic diverticula with evidence of prior appendectomy. There was an enhancing 15 mm lesion exophytic from the right renal cortex. In this context, the patient was seen by Urology and further workup was planned as an outpatient. Also revealed some liver lesion concerning for hemangioma. GI will follow as an outpatient as well. Then, the patient was seen by Psychiatry in consultation and the patient was maintained on 2 to 4 L nasal cannula as per home oxygen requirement with underlying pulmonary hypertension. The patient was also being replaced aggressively magnesium and potassium during the hospitalization and started on CIWA protocol. The patient has some encephalopathic element. Neurology input was obtained. Further workup including brain CT as well as MRI obtained, did not reveal any acute pathology. MRI of the liver was obtained as well confirmed benign hepatic hemangioma. The patient was maintained on IV dose of thiamine and folic acid, which helping resolution of encephalopathy and the patient would like to go back to her baseline, awake and alert to self without any deficit and the patient was started on Ativan with tapering dose. Today, the patient will be tapered off from Ativan and will be discharged. PHYSICAL EXAMINATION: GENERAL: When examined today, hemodynamically stable. NECK: Supple. CARDIOVASCULAR: Regular. ABDOMEN: Positive bowel sounds. EXTREMITIES: No pedal edema. LABORATORY DATA: Reviewed. MEDICATIONS: Per the computer reconciliation list. TIME SPENT: Time spent in coordination of care 35 minutes. Electronically Signed by: Rob Scruggs MD 04/21/2021 09:08 A Rob Scruggs MD Date Dict: 04/20/2021/10:24 A/Rob Scruggs MD Date Trans: 04/20/2021 11:08 A/fer [id number] [facility]11-12-2021 NoteMR#: [id number] [facility] Pt. Name: Alfie Hogan Date of Service: 04/14/2021 Room #: 4CD [id number] Birthdate: 1960 Referring Physician: CONSULTATION CHIEF COMPLAINT: Right renal mass. HISTORY OF PRESENT ILLNESS: A 60-year-old female with a past medical history of alcohol abuse, was admitted for multiple complaints. She is complaining of abdominal pain when they obtained a CT abdomen and pelvis, which showed an incidental finding of a 15 mm right renal mass and a small liver mass. The patient states that she has never had cancer in the past. She has seen a urologist in the past for kidney stone, but has never required intervention for the stones. She does not remember the urologist's name. She denies any gross hematuria. She states that she has smoked for 20 years, 1 pack per day, quit 17 years ago. She does drink a bottle of wine every day and has alcohol abuse problems and has failed detox in the past. She denies any flank pain, she is just complaining of generalized abdominal pain. She does not speak in clear instances. REVIEW OF SYMPTOMS: Fourteen point ROS limited due to the patient's incoherence. PAST MEDICAL HISTORY: Chronic kidney disease, pulmonary hypertension. PAST SURGICAL HISTORY: Back surgery, hip surgery, hip replacement. FAMILY HISTORY: Mother, pancreatic cancer. Father, colon cancer. SOCIAL HISTORY: The patient is currently residing in a sober living house after completing a 30 days at a detox facility. She has had a history of tobacco use, she quit 17 years ago. Smoked for 20 years, 1 pack per day. She has a history of alcohol abuse, claims to be 30 days plus sober, per family. She has a history of substance abuse of prescription medications. She did not seek help for that. This has been new in the last few years. ALLERGIES: Penicillin. MEDICATIONS: See medical reconciliation. PHYSICAL EXAMINATION: GENERAL: Alert, oriented, no acute distress. HEAD: Normocephalic, atraumatic. HEENT: Moist mucous membranes. RESPIRATORY: Normal respiratory effort on nasal cannula. CARDIAC: Regular rate. ABDOMEN: Soft, nontender, nondistended, obese. No flank tenderness or CVA tenderness. EXTREMITIES: No calf tenderness. ASSESSMENT: A 60-year-old female. 1. Active problem list. 2. 15 mm right renal mass. PLAN: 1. No acute urological intervention at this time. 2. Metastasis, potential of the 50 mm mass is less than 1%, liver mass unlikely to be metastasis from kidney. 3. The patient can follow up with Dr. Garcia in 2-3 weeks at [facility] for further workup. 4. Urology will sign off at this time. 5. Medical management per Primary. I, Dr Garcia saw patient today. I agree with resident finding, assessment and plan. Further, patient was admitted for encephalopathy and cross-sectional imaging found incidental small right renal lesion without further characterization given CT was performed without IV contrast. Patient is getting MRI liver mass protocol which could also evaluate the renal mass. At this time there is no acute urologic intervention required this admission. I discussed finding of the CT with the patient who denies flank pain or gross hematuria specifically related to this mass. I discussed follow-up with me in clinic in 2 to 3 weeks after discharge to obtain cross-sectional imaging in for 6-month to follow growth rate of this lesion.. Electronically Signed by: Ricardo Garcia MD 04/16/2021 05:32 P Ricardo Garcia MD I personally saw this patient on the day of the encounter, performed the nobles portion(s) of the service and participated in the management and confirm the resident's documentation. Please note there may be an additional personal documentation from me. Date Dict: 04/14/2021/04:03 P/Muna Fountain MD Date Trans: 04/14/2021 11:27 P/fer [id number] [facility]11-11-2021 NoteMR#: [id number] [facility] Pt. Name: Alfie Hogan Date of Service: 04/14/2021 Room #: 4CD [id number] Birthdate: 1960 Referring Physician: CONSULTATION CC: right renal mass History of present illness: 60-year-old female with a past medical history of alcohol abuse was admitted for multiple complaints. She was complaining of abdominal pain and they obtained a CT abdomen pelvis which showed an incidental finding of a 15 mm right renal mass, and a small liver mass. Patient states that she has never had cancer in the past. She has seen a urologist in the past for kidney stones, but has never required intervention for the stones. She does not remember the urologist name. She denies any gross hematuria. She does state that she smoked for 20 years 1 pack/day, quit 17 years ago. She does drink a bottle of wine every day and has alcohol abuse problems and has failed detox in the past. She denies any flank pain, she just complaining of generalized abdominal pain. She does not speak in coherent sentences. Past Medical History: Chronic kidney disease, pulmonary hypertension Past Surgical History: Back surgery, hip replacement Family History: Mother-pancreatic cancer, father-colon cancer Social History: Patient is currently residing in a sober living house after completing 30 days at a detox facility. She has a history of tobacco use, she quit 17 years ago. She has a history of alcohol use, claims to be 30+ days sober, per family she has a history of substance abuse of prescription medications. She did not seek help for that. This is been new in the last few years. Allergies: Penicillin Medications: See medication reconciliation Physical examination: General: Alert, oriented, no acute distress Head: Normocephalic, atraumatic HEENT: Moist mucous membranes Respiratory: Normal respiratory effort on room air Cardiac: Regular rate Abdomen: Soft, nontender, nondistended, obese, no flank tenderness no CVA tenderness Extremities: No calf tenderness Assessment: 89-year-old female Active problems 15 mm right renal mass Plan: No acute urological intervention at this time Metastasis potential of 15 mm mass is less than 1%, liver mass unlikely to be mets from kidney Patient can follow-up with Dr. Garcia in 2 to 3 weeks at [facility] for further work-up Urology will sign off at this time Medical management per primary I, Dr Garcia saw patient on the day of encounter. I agree with resident finding assessment and plan. Further, possible right small solid renal mass/hyperdense cyst unlikely to be metastatic to the liver since the liver lesion does not appear to be metastatic. Discussed with patient follow-up in clinic as an outpatient in 4 to 6 weeks to obtain MRI renal mass protocol. Patient was ordered to have MRI liver protocol, will follow on the result since MRI abdomen will image her kidneys as well. 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 Therefore we will follow Bosniak 2 cyst F with repeat MRI or CT in 6 months. Electronically Signed by: Ricardo Garcia MD 04/19/2021 09:30 P Ricardo Garcia MD I personally saw this patient on the day of the encounter, performed the nobles portion(s) of the service and participated in the management and confirm the resident's documentation. Please note there may be an additional personal documentation from me. Date Dict: 04/14/2021/03:51 P/Muna Fountain MD Date Trans: 04/14/2021 03:51 P/ ADALID_JN:[id number] [facility]03-04-2013 History of Past illness Narrative* Problem Noted Date Diagnosed Date Resolved Date Acute right hip pain 08/05/2012 017 Right groin pain 07/29/2012 11/22/2016 Hyperlipidemia 11/28/2011 12/15/2014 Acute gastritis without mention of hemorrhage 04/11/20 11 12/15/2014 Esophagitis, unspecified 04/11/2011 Dyspepsia and other specifie d disorders of function of stomach 04/11/2011 12/15/2014 CHOLECYSTITIS SEE ALSO GALLBLADDER CHRONIC 09/11/2006 12/15/2014 Hypertension 12/15/2014 Tobacco use disorder 015 Acute renal failure 11/23/19 17 Overview: episodes of Cr elevation documented as of this encounter (statuses as of 07/06/2023) [facility]03-04-2013 History of Past illness Narrative* Problem Noted Date Diagnosed Date Resolved Date Acute right hip pain 08/05/2012 017 Right groin pain 07/29/2012 11/22/2016 Hyperlipidemia 11/28/2011 12/15/2014 Acute gastritis without mention of hemorrhage 04/11/20 11 12/15/2014 Esophagitis, unspecified 04/11/2011 Dyspepsia and other specifie d disorders of function of stomach 04/11/2011 12/15/2014 CHOLECYSTITIS SEE ALSO GALLBLADDER CHRONIC 09/11/2006 12/15/2014 Hypertension 12/15/2014 Tobacco use disorder 015 Acute renal failure 11/23/19 17 Overview: episodes of Cr elevation documented as of this encounter (statuses as of 07/06/2023) [facility] January 04, 2023 12:33pm Note Date/Time January 04, 2023 12: 03pm [facility] Medical Records Department [address] [place] [address] Emergency Department Summary 01/04/23 MR#: [id number] Acct: [id number] Name: ALFIE HOGAN Rep #:[id number] : 1960 62 From: Junior Salter MD PCP: Dr. Bernardino Moran MD Status:REG ER Location: ED HPI History of Present Illness Chief Complaint: Abd Pain Detail of Chief Complaint: Viral-like symptoms predominantly GI Informant: patient Onset/Context/Timing Onset: Weeks Context: Sudden Onset Timing: Continuous and Waxes and wanes Quality: Bilateral lower abdominal pain Location: Right and left quadrant Current Severity: Mild Maximum Severity: Moderate Worsened by: [place] of liquids or solids, walking Relieved by: Nothing Associated Symptoms Associated Symptoms: Documented temperature to 101.4 ?F Sunday, nausea, vomiting and diarrhea, Narrative Narrative: Patient is 62-year-old woman with multiple medical problems which include hypertension, diabetes, obstructive sleep apnea, chronic kidney disease who presents because of nausea, vomit diarrhea. She has vomited between several times a day to 10 times a day's. She has had several bowel movements that are loose watery. Over the past 24 hours she has had 4 loose stools. She has not noted blood or mucus. She denies history of Crohn's disease or inflammatory bowel disorder. She reports decreased urine output. She denies dysuria or urgency or hematuria. She denies double vision, blurred vision loss of vision. Does Report headache. She denies cardiac respiratory symptoms she is status post cholecystectomy, appendectomy, hysterectomy with bilateral salpingo-oophorectomy. She does not have history of diverticulosis or diverticulitis. Prior similar symptoms: No Recent [facility] Medical History Abdominal pain Abnormal liver CT Admitted to alcohol detoxification center Alcohol abuse Alcohol withdrawal Anemia Anxiety Arthritis Asthma BiPAP (biphasic positive airway pressure) dependence Bronchiectasis Bronchitis Chronic renal failure Chronic renal insufficiency, stage I Closed fracture of fibula, proximal, left Colitis Colitis with rectal bleeding Contusion of left hip Contusion of left shoulder Contusion of rib on right side Contusion of scalp COPD (chronic obstructive pulmonary disease) Dementia Depression DVT (deep venous thrombosis) Endocarditis Essential (primary) hypertension Former smoker Frequent falls Gastritis Gastroesophageal reflux disease History of diarrhea History of umbilical hernia HLD (hyperlipidemia) Hypertension Idiopathic right ventricular dilation Kidney disease Leukopenia Medical marijuana use Migraine Morbid obesity On home oxygen therapy GENNARO (obstructive sleep apnea) Osteoarthritis Pancytopenia Pneumonia Pyuria Respiratory failure with hypoxia Respiratory insufficiency Respiratory tract infection due to COVID-19 virus Restrictive lung disease Right bundle branch block (RBBB) Right ventricular systolic dysfunction Sepsis Sleep apnea Substance abuse Thrombocytopenia Home Medications pantoprazole 40 mg tablet,delayed release 40 mg PO DAILY acid reflux 12/09/18 [History Last Taken 07/15/22 08:00] fluoxetine 20 mg capsule 40 mg PO DAILY anxiety 01/14/21 [History Last Taken 07/15/22 08:00] magnesium oxide 400 mg PO DAILY supplement 06/08/21 [History Last Taken 07/15/22 08:00] trazodone 100 mg tablet 100 mg PO QHS sleep 06/10/21 [History Last Taken 07/15/22 20:00] rosuvastatin 40 mg tablet 40 mg PO QHS cholesterol 07/19/21 [History Last Taken 07/15/22 20:00] thiamine HCl (vitamin B1) 50 mg tablet (Vitamin B-1) 50 mg PO DAILY supplement 07/19/21 [History Last Taken 07/15/22 08:00] folic acid 1 mg tablet 1 mg PO DAILY@0800 supplement 12/29/21 [History Last Taken 07/15/22 08:00] clonidine HCl 0.1 mg tablet 0.1 mg PO BID anxiety 07/16/22 [History Last Taken 07/15/22 20:00] hydroxyzine pamoate 50 mg capsule (Vistaril) 50 mg PO Q8H PRN PRN Anxiety 07/16/22 [History Last Taken Unknown] melatonin 10 mg tablet 10 mg PO QHS PRN Sleep 07/16/22 [History Last Taken Unknown] memantine 10 mg tablet (Namenda) 10 mg PO BID Alzheimer's 07/16/22 [History Last Taken 07/15/22 20:00] potassium chloride 10 mEq tablet,extended release 10 meq PO BID supplement 07/16/22 [History Last Taken 07/15/22 20:00] rivastigmine tartrate 1.5 mg capsule 1.5 mg PO BID Alzheimer's 07/16/22 [History Last Taken 07/15/22 20:00] oxybutynin chloride 10 mg tablet,extended release 24 hr 10 mg PO DAILY bladder 07/18/22 [History Last Taken Unknown] carvedilol 3.125 mg tablet 3.125 mg PO BID #60 tabs 07/20/22 [Rx Last Taken Unknown] dicyclomine 10 mg capsule 20 mg (2 x 10 mg) PO TIDAC #20 CAPSULES 01/04/23 [Rx Last Taken Unknown] ondansetron 4 mg disintegrating tablet 4 mg PO Q8H PRN PRN Nausea #10 tabs 01/04/23 [Rx Last Taken Unknown] Allergy/AdvReac Type Severity Reaction Status Date / Time house dust Allergy ITCHY EYES Verified 01/04/23 11:29 Penicillins Allergy Hives Verified 01/04/23 11:29 Seasonal Allergies: Uncoded Allergy ITCHY EYES Verified 01/04/23 11:29 Family History Father Colon cancer Mother Cancer pancreatic Surgical History History of appendectomy History of cholecystectomy History of hysterectomy History of tubal ligation Social History household members: none Smoking Status: Former smoker Tobacco: How many years used: 25 how long ago did patient quit smokin, 0.5ppd second hand exposure: Yes alcohol intake: current details: 2-3 months of 1 bottle wine/day. substance use type: marijuana ROS ROS ED Constitutional Constitutional ED: Reports chills, fever(s) and sweats; Denies weight loss Eyes Eyes: Denies blurry vision, change in vision or diplopia ENT ENT ED: Reports other Details: Endorses nasal congestion. ; Denies ear pain, rhinorrhea or sore throat Cardiovascular Cardiovascular: Denies chest pain, orthopnea, palpitations, paroxysmal nocturnaldyspnea or racing heartbeat Respiratory/Chest Respiratory/Chest: Denies cough, dyspnea, dyspnea on exertion, orthopnea or paroxysmal nocturnal dyspnea Gastrointestinal Gastrointestinal: Reports abdominal pain, diarrhea, nausea and vomiting; Denies constipation or melena Genitourinary Genitourinary ED: Denies dysuria, hematuria or urinary frequency Musculoskeletal Musculoskeletal: Denies arthralgias, back pain, myalgias or neck pain Integumentary Denies abscess, Abrasions or rash Neurologic Neurologic: Reports weakness; Denies headache(s) or paresthesias Psychiatric Psychiatric: Reports depression Endocrine Endocrinology: Denies cold intolerance or heat intolerance Hematologic/Lymphatic Hematologic/Lymphatic: Reports systems reviewed and no addt'l complaints, exceptas documented EXAM Physical Exam Const Vital Signs: 01/04/23 11:27 Temperature 98.9 F Temperature Source Temporal Pulse Rate 107 H Respiratory Rate 16 Pulse Ox 96 Oxygen Delivery Method Room Air Positive well nourished and well developed Constitutional Narrative: Began to cry during the history portion of the H&P. Patient states she felt sick for too long. General Appearance ED: well developed and NAD; Negative for pallor HEENT Reports dry mucous membranes HEENT Narrative: Head is atraumatic normocephalic. Ears are normal. Nares are patent. Posterior is normal. Mouth ED: Yes dry mucous membranes Mouth: dry mucous membranes Eyes PERRL and EOMs intact bilaterally General Eye ED: Negative for pale conjunctiva or scleral icterus Neck no lymphadenopathy, supple and no JVD Chest Wall inspection of chest normal and palpation of chest normal Resp normal respiratory effort and clear to auscultation bilaterally Cardio regular rate, regular rhythm, S1 normal heart sound, S2 normal heart sound and no murmurs GI normal to inspection, nondistended, normoactive bowel sounds and non-distended; Negative for non-tender, hepatosplenomegaly or no masses Palpation: soft and tender LUQ; Negative for splenomegaly or rebound tenderness present Back/Spine no CVA tenderness Thoracic Spine / Upper Back: Negative for thoracic spinal tenderness Lumbar Spine / Lower Back: Negative for lumbar spinal tenderness Extremity normal to inspection General Extremety ED: Negative for edema or tenderness General Extremity: Negative for edema Neuro oriented x3, CN's II-XII intact bilaterally and no sensory deficits noted Sensorium / Orientation: alert Psych mental status grossly normal Skin no rashes or lesions noted, no wounds and skin turgor normal General Skin Exam: Negative for jaundice or pallor MDM MDM MDM Narrative Medical decision making narrative: Differential diagnoses include viral illness with vomiting diarrhea. In light of her multiple medical problems and the fact that she is clinically dehydrated 1 L of normal saline was ordered. BMP was obtained to assess glucose as well aselectrolytes and renal function since she does have history of chronic renal insufficiency. Patient received Zofran for her nausea and Bentyl for her abdominal pain. History & Record Review Additional record(s) reviewed:: Prior ED visit and Prior labs Lab Data Attestation: I reviewed the patient's lab results. Lab results narrative: Patient is neutropenic. Prior records indicates she is always neutropenic. Creatinine is slightly up from baseline. Last creatinine was 0.74. Today's is 1.17 with a GFR of 50. Labs: Laboratory Results - last 24 hr 01/04/23 11:55 WBC 4.1 L RBC 4.38 Hgb 12.2 Hct 40.5 MCV 92.5 MCH 27.9 MCHC 30.1 L RDW Std Deviation 42.9 RDW Coeff of Jaun 12.7 Plt Count 121 L MPV 9.2 Immature Gran % (Auto) 0.500 Neut % (Auto) 69.3 Lymph % (Auto) 19.0 Woodward % (Auto) 9.0 Eos % (Auto) 2.0 Baso % (Auto) 0.2 Absolute Neuts (auto) 2.8 Absolute Lymphs (auto) 0.78 L Nucleated RBC % 0 Sodium 142 Potassium 3.5 Chloride 106 Carbon Dioxide 32.0 Anion Gap 4 L BUN 18 Creatinine 1.17 H Estim Creat Clear Calc 50.94 Est GFR (MDRD) Af Amer 61 Est GFR (MDRD) Non-Af 50 L BUN/Creatinine Ratio 15.4 Glucose 110 H Calcium 9.4 Treatment and Re-Evaluation :: Patient was informed of her laboratory results. Plan is to discharge after liter of fluid. She feels much better after Zofran and Bentyl. Discharge Plan Triage Chief Complaint: Abd Pain ED Provider: Junior Salter Dx/Rx/DC Orders Clinical Impression: Nausea, vomiting, and diarrhea, Acute renal insufficiency, Dehydration, moderate, Abdominal pain, acute, bilateral lower quadrant Instructions: ED Renal Insufficiency, ED Vomiting and Diarrhea ... Prescriptions: New ondansetron [ondansetron] 4 mg tablet,disintegrating 4 mg PO Q8H PRN PRN (Reason: Nausea) Qty: 10 0RF dicyclomine 10 mg capsule 20 mg PO TIDAC Qty: 20 0RF No Action pantoprazole 40 MG tablet 40 mg PO DAILY fluoxetine 20 mg Capsule 40 mg PO DAILY magnesium oxide 400 mg magnesium Tablet 400 mg PO DAILY trazodone 100 mg Tablet 100 mg PO QHS thiamine HCl (vitamin B1) [Vitamin B-1] 50 mg Tablet 50 mg PO DAILY rosuvastatin 40 mg Tablet 40 mg PO QHS folic acid 1 mg tablet 1 mg PO DAILY@0800 rivastigmine tartrate 1.5 mg capsule 1.5 mg PO BID clonidine HCl 0.1 mg tablet 0.1 mg PO BID potassium chloride 10 mEq tablet extended release 10 meq PO BID memantine [Namenda] 10 mg tablet 10 mg PO BID hydroxyzine pamoate [Vistaril] 50 mg Capsule 50 mg PO Q8H PRN PRN (Reason: Anxiety) melatonin 10 mg Tablet 10 mg PO QHS PRN (Reason: Sleep) oxybutynin chloride 10 mg tablet extended release 24hr 10 mg PO DAILY carvedilol 3.125 mg Tablet 3.125 mg PO BID Qty: 60 0RF Primary Care Provider: Bernardino Moran Referrals: Bernardino Moran MD [Primary Care Provider] - 1-2 Days if not improving Activity Restrictions/Additional Instructions: Take Imodium for diarrhea. Disposition Disposition: Home, Self Care What to do if you have Problems For any increased pain, shortness of breath, bleeding, nausea or vomiting, chestpain, or any unexpected problems, contact your Primary Care Provider. Call [facility] ([phone]) or report to the closest Emergency Room. Call 911 if necessary. 01/04/23 1233 <Electronically signed by Junior Salter MD> Cosigner Signature (if applicable): CC: Dr. Bernardino Moran MD ~ Signed [facility] Work Phone: Discharge summary Author Blayne Santana [facility] Note Date/Time November 10, 2024 2:00p m [facility] Medical Records Department [address] [place] [address] Transfer to [facility] MR#: [id number] Acct: [id number] Name: ALFIE HOGAN Rep #:[id number] : 1960 63 From: Blayne Santana DO PCP: Dr. Corin Mariscal MD Status:ADM IN Certification of patient admission REQUIRED AT TIME OF ADMISSION. I CERTIFY THAT POST-HOSPITAL ECF SERVICES ARE REQUIRED TO BE GIVEN ON AN IN-PATIENT BASIS BECAUSE OF THE ABOVE NAMED PATIENT'S NEED FOR [facility] CARE ON A CONTINUING BASIS FOR THE CONDITION(S) FOR WHICH HE/SHE WAS RECEIVING IN-PATIENT HOSPITAL SERVICES PRIOR TO HIS/HER TRANSFER TO THE ECF. 11/10/24 1400<Electronically signed by Blayne Santana DO> Diet Diet Order/Speech Therapy: INPATIENT Hospital Diet / Speech Therapy Order(s) 11/07/24 19:24 Diet: Cardiac: Calorie-Controlled Food consistency:: Regular Liquid Consistency:: Regular/Thin Type of Dietary Supplement:: Glucerna Shake Diet Comments: prefers vanilla GS How many daily calories?: 1800 calorie Routine Orders/Code Status Code Status: DNRCC-A DC O2, CPAP, BIPAP needs Home O2 Discharge instructions: No Wound(s) Right knee: Wound Type: Abrasion Therapies Weight Bearing: Full weight bearing Physical Therapy: Eval and Treat Occupational Therapy: Eval and Treat Problem/Diagnosis (1) PEDRO (acute kidney injury): Status: Acute Code(s): N17.9 - Acute kidney failure, unspecified Plan: 2/2 dehydration. Improved with IVF. Kidney ultrasound unremarkable. No additional work up. (2) Hypokalemia: Status: Acute Code(s): E87.6 - Hypokalemia Plan: replaced (3) Elevated troponin: Status: Acute Code(s): R79.89 - Other specified abnormal findings of blood chemistry Plan: Likely skewed given PEDRO. Trended down. No additional work up at this time. (4) Encephalopathy: Status: Acute Code(s): G93.40 - Encephalopathy, unspecified Plan: Resolved Likely metabolic and toxic. From PEDRO, plus home medications. Head CT showed no acute process. (5) Debility: Status: Acute Code(s): R53.81 - Other malaise Plan: Did poorly with therapy walking only 15 feet. Patient will likely require senior living facility. To TCU today. Plan VTE prophylaxis: LMWH. Allergies/Procedures Done in Hospital Allergies house dust Allergy (Verified 11/07/24 10:21) ITCHY EYES Penicillins Allergy (Verified 11/07/24 10:21) Hives Seasonal Allergies: Uncoded Allergy (Verified 11/07/24 10:21) ITCHY EYES Procedures: None Type of Care/Length of Stay Estimated LOS: Convalescent Care Less Than 30 days Type of Care Needed: Skilled Rehab Potential: Good Prognosis: Good Additional Orders/Day of Discharge Day of Discharge: 11/10/24 Dietary and Speech Recommendations Dietitian Recommendations/Changes: Continue 1800 christine Cardiac diet w/ glucerna shake at meals until mouth pain resolved and po intake improved. Encourage outpt WHY WEIGHT program for half-way wt loss w/ PCP referral Discharge Plan Admission Admit Date/Time: 11/07/24 16:45 Primary Reason for Your Visit: Acute kidney injury. Attending Provider: Blayne Santana Primary Care Provider: Corin Mariscal Consulting Providers: Kaitlyn Winkler Discharge Orders/Prescriptions Prescriptions: New acetaminophen 325 mg Tablet 1,000 mg PO Q8H PRN PRN (Reason: Pain 1-10 Or Fever>100.7) Qty: 0 0RF Continued Dulera 100-5 mcg/actuation HFA aerosol inhaler 2 puff inhalation BID Qty: 13 3RF pantoprazole 40 MG tablet 40 mg PO DAILY rosuvastatin 40 mg Tablet 40 mg PO QHS melatonin 10 mg Tablet 10 mg PO QHS carvedilol 3.125 mg Tablet 3.125 mg PO BID Qty: 60 0RF temazepam 30 mg capsule 30 mg PO QHS cyclobenzaprine 5 mg tablet 5 mg PO TID PRN PRN (Reason: muscle spasm) sennosides [Aminata-guy] 8.6 mg tablet 8.6 mg PO BID PRN PRN (Reason: constipation) ferrous sulfate [iron] 325 mg (65 mg iron) tablet 325 mg PO QDAY cyanocobalamin (vitamin B-12) [Vitamin B-12] 1,000 mcg tablet 1,000 mcg PO DAILY Mounjaro 7.5 mg/0.5 mL pen injector 7.5 mg subcut QWEEK fluoxetine 40 mg capsule 40 mg PO DAILY Linzess 290 mcg capsule 290 mcg PO DAILY trospium 20 mg tablet 20 mg PO BID ergocalciferol (vitamin D2) 1,250 mcg (50,000 unit) capsule 1,250 mcg PO QWEEK albuterol sulfate 90 mcg/actuation HFA aerosol inhaler 1 puff inhalation Q6H PRN (Reason: shortness of breath or wheezing) Qty: 6.7 0RF Changed alprazolam 0.5 mg tablet 0.5 mg PO BID PRN (Reason: anxiety) Qty: 6 0RF Discontinued magnesium 200 mg tablet 200 mg PO DAILY metformin 500 mg tablet extended release 24 hr 500 mg PO BID Referrals / Follow Up: Corin Mariscal MD [Primary Care Provider] - Within 2 Weeks Disposition Disposition (needs filled in before D/C Order can be placed): Group Home Facility 11/10/24 1400 <Electronically signed by Blayne Santana DO> Cosigner Signature (if applicable): CC: Dr. Corin Mariscal MD; Dr. Kaitlyn Winkler DO ~ [facility] Work Phone: Discharge summary Author Blayne Santana [facility] Note Date/Time November 10, 2024 2:02p [facility] Medical Records Department [address] [place] [address] Discharge Summary 11/10/24 1400 MR#: [id number] Acct: [id number] Name: ALFIE HOGAN Rep #:[id number] : 1960 63 From: Blayne Santana DO PCP: Dr. Corin Mariscal MD Status:ADM IN Location: [place] [address] Providers Date of Admission: 11/07/24 Primary Care Physician: Corin Mariscal MD Reason For Visit: PEDRO, HYPOKALEMIA Diagnosis Discharge Diagnosis (1) PEDRO (acute kidney injury): Status: Acute Code(s): N17.9 - Acute kidney failure, unspecified Plan: 2/2 dehydration. Improved with IVF. Kidney ultrasound unremarkable. No additional work up. (2) Hypokalemia: Status: Acute Code(s): E87.6 - Hypokalemia Plan: replaced (3) Elevated troponin: Status: Acute Code(s): R79.89 - Other specified abnormal findings of blood chemistry Plan: Likely skewed given PEDRO. Trended down. No additional work up at this time. (4) Encephalopathy: Status: Acute Code(s): G93.40 - Encephalopathy, unspecified Plan: Resolved Likely metabolic and toxic. From PEDRO, plus home medications. Head CT showed no acute process. (5) Debility: Status: Acute Code(s): R53.81 - Other malaise Plan: Did poorly with therapy walking only 15 feet. Patient will likely require senior living facility. To TCU today. Plan VTE prophylaxis: LMWH. Medications at Discharge Home Medications pantoprazole 40 mg tablet,delayed release 40 mg PO DAILY ACID REFLUX 12/09/18 rosuvastatin 40 mg tablet 40 mg PO QHS CHOLESTEROL 07/19/21 melatonin 10 mg tablet 10 mg PO QHS SLEEP 07/16/22 carvedilol 3.125 mg tablet 3.125 mg PO BID HEART #60 tabs 07/20/22 mometasone-formoterol HFA 100 mcg-5 mcg/actuation aerosol inhaler (Dulera) 2 puff inhalation BID SHORTNESS OF BREATH/WHEEZING #13 grams 03/05/23 temazepam 30 mg capsule 30 mg PO QHS INSOMNIA 07/12/23 fluoxetine 40 mg capsule 40 mg PO DAILY depression 01/28/24 linaclotide 290 mcg capsule (Linzess) 290 mcg PO DAILY bowel function 01/28/24 trospium 20 mg tablet 20 mg PO BID see 01/28/24 ergocalciferol (vitamin D2) 1,250 mcg (50,000 unit) capsule 1,250 mcg PO QWEEK 07/15/24 albuterol sulfate 90 mcg/actuation aerosol inhaler 1 puff inhalation Q6H PRN shortness of breath or wheezing #6.7 grams 07/17/24 cyanocobalamin (vitamin B-12) 1,000 mcg tablet (Vitamin B-12) 1,000 mcg PO DAILY08/09/24 cyclobenzaprine 5 mg tablet 5 mg PO TID PRN PRN muscle spasm 08/09/24 ferrous sulfate 325 mg (65 mg iron) tablet (iron) 325 mg PO QDAY 08/09/24 sennosides 8.6 mg tablet (Aminata-guy) 8.6 mg PO BID PRN PRN constipation 08/09/24 tirzepatide 7.5 mg/0.5 mL subcutaneous pen injector (Mounjaro) 7.5 mg subcut QWEEK 11/07/24 acetaminophen 325 mg tablet 1,000 mg (3.0769 x 325 mg) PO Q8H PRN PRN Pain 1-10 Or Fever>100.7 #0 tabs 11/10/24 alprazolam 0.5 mg tablet 0.5 mg PO BID PRN anxiety #6 tabs 11/10/24 Hospital Course Operations None Procedures None Summary of Care Provided Minutes Spent on Discharge: 32 Hospital Course: Patient presented confused and with acute kidney injury. Patient had been falling at home and not eating or drinking much. Patient had 4 teeth extracted previous to that. Patient's this her creatinine was at 3.19 and with fluids it is improved down to 2.16. There is other baselines around 1.1 which is what shewas on September 30 of this year. Patient also came in confused that was likely dueto incomplete removal of medication that she takes chronically that may have ledto her confusion. Her mental status is greatly improved. But overall patient is very weak and requiring assistance just to walk 15 feet. Patient has been accepted and will be discharged to the transitional care unit in stable condition. Weight / BMI Weight Weight: 135.9 kg Body Mass Index (BMI) 46.9 ABG / Lab / Microbiology Data 11/09/24 07:04 11/10/24 07:13 Laboratory: Laboratory Results - last 24 hr 11/09/24 16:38: POC Glucose 130 H 11/09/24 21:04: POC Glucose 96 11/10/24 06:24: POC Glucose 105 11/10/24 07:13: Sodium 144, Potassium 3.4, Chloride 109 H, Carbon Dioxide 23.5, Anion Gap 11, BUN 26 H, Creatinine 2.16 H, Estim Creat Clear Calc 38.93 L, Est GFR (MDRD) Non-Af 25 L, BUN/Creatinine Ratio 11.9, Glucose 98, Calcium 9.5 11/10/24 12:28: POC Glucose 94 Microbiology: Microbiology 11/07/24 11:20 Blood Culture (Wb) - Left Forearm Blood Culture - Preliminary No growth in 48 hours. 11/07/24 11:00 Blood Culture (Wb) - Anticubital Right Blood Culture - Preliminary No growth in 48 hours. 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 * Patients 75 years or YOUNGER should receive HIGH intensity statin dose unless contraindicated. You will be required to document reason for non-treatment if statin daily dose does not meet guidelines. HIGH DOSE STATIN THERAPY DAILY Atorvastatin > than or = to 40 mg Rosuvastatin > than or = to 20 mg Amlodipine + Atorvastatin > than or = to 2.5/40 mg Ezetimibe + Simvastatin 10/80 mg Simvastatin 80mg Discharge Plan Admission Admit Date/Time: 11/07/24 16:45 Primary Reason for Your Visit: Acute kidney injury. Attending Provider: Blayne Santana Primary Care Provider: Corin Mariscal Consulting Providers: Kaitlyn Winkler Discharge Orders/Prescriptions Prescriptions: New acetaminophen 325 mg Tablet 1,000 mg PO Q8H PRN PRN (Reason: Pain 1-10 Or Fever>100.7) Qty: 0 0RF Continued Dulera 100-5 mcg/actuation HFA aerosol inhaler 2 puff inhalation BID Qty: 13 3RF pantoprazole 40 MG tablet 40 mg PO DAILY rosuvastatin 40 mg Tablet 40 mg PO QHS melatonin 10 mg Tablet 10 mg PO QHS carvedilol 3.125 mg Tablet 3.125 mg PO BID Qty: 60 0RF temazepam 30 mg capsule 30 mg PO QHS cyclobenzaprine 5 mg tablet 5 mg PO TID PRN PRN (Reason: muscle spasm) sennosides [Aminata-guy] 8.6 mg tablet 8.6 mg PO BID PRN PRN (Reason: constipation) ferrous sulfate [iron] 325 mg (65 mg iron) tablet 325 mg PO QDAY cyanocobalamin (vitamin B-12) [Vitamin B-12] 1,000 mcg tablet 1,000 mcg PO DAILY Mounjaro 7.5 mg/0.5 mL pen injector 7.5 mg subcut QWEEK fluoxetine 40 mg capsule 40 mg PO DAILY Linzess 290 mcg capsule 290 mcg PO DAILY trospium 20 mg tablet 20 mg PO BID ergocalciferol (vitamin D2) 1,250 mcg (50,000 unit) capsule 1,250 mcg PO QWEEK albuterol sulfate 90 mcg/actuation HFA aerosol inhaler 1 puff inhalation Q6H PRN (Reason: shortness of breath or wheezing) Qty: 6.7 0RF Changed alprazolam 0.5 mg tablet 0.5 mg PO BID PRN (Reason: anxiety) Qty: 6 0RF Discontinued magnesium 200 mg tablet 200 mg PO DAILY metformin 500 mg tablet extended release 24 hr 500 mg PO BID Referrals / Follow Up: Corin Mariscal MD [Primary Care Provider] - Within 2 Weeks Disposition Disposition (needs filled in before D/C Order can be placed): Group Home Facility Charges/Coding Visit Charges Inpatient E&M: 22358 Disch Hosp >30min 11/10/24 1402 <Electronically signed by Blayne Santana DO> Cosigner Signature (if applicable): CC: Dr. Corin Mariscal MD; Dr. Blayne Santana DO~ Signed [facility] Work Phone: Evaluation note* Diagnosis Onset Date Resolution Status Bimalleolar fracture of right ankle acute Closed fracture of fourth toe of left foot acute [id number] acute Fracture of toe of left foot acute [facility] Work Phone: Evaluation note* Diagnosis Onset Date Resolution Status Acute hypotension acute PEDRO (acute kidney injury) ac sultana Encephalopathy acute Neutropenia acute Pyuria acute [facility] Work Phone: Evaluation note* Diagnosis Onset Date Resolution Status Neutropenia acute Acute hypotension resolved PEDRO (acute kidney injury) re solved Encephalopathy resolved [facility] Work Phone: Evaluation note* Diagnosis Onset Date Resolution Status Closed fracture of fibula, proximal, left acute Contusion of left hip acute Contusion of left shoulder a cute Contusion of rib on right side acute Contusion of scalp acute Fracture of neck of fibula a cute [facility] Work Phone: Evaluation note* Diagnosis Onset Date Resolution Status Closed fracture of fibula, proximal, left acute Contusion of left hip acute Contusion of left shoulder a cute Contusion of rib on right side acute Contusion of scalp acute Fracture of neck of fibula a cute Alcohol withdrawal acute Viral syndrome acute COPD exacerbation chronic [facility] Work Phone: Evaluation note* Diagnosis Recurrent major depressive disorder, in partial remission (HCC)- Primary Chronic insomnia Insomnia, unspecified Forgetfulness Other general symptoms Anxiety Anxiety state, unspecified [facility]* Diagnosis Chronic hypoxemic respiratory failure (CMS/HCC) ([facility]) Chronic respiratory failure [facility]* Diagnosis Onset Date Resolution Status Nausea and vomiting acute Chronic renal insufficiency, stage I chronic Essential (primary) hypertension [facility] Work Phone: Evaluation note* Diagnosis Chronic insomnia- Primary Insomnia, unspecified Morbid (severe) obesity due to excess calories ([facility]) Chronic hypoxemic respiratory failure (CMS/HCC) (HCC) Chronic respiratory failure Other pancytopenia (CMS/HCC) ([facility]) Other pancytopenia Essential hypertension Unspecified essential hypertension Gastroesophageal reflux disease without esophagitis Esophageal reflux Current moderate episode of major depressive disorder without prior episode ([facility]) Anxiety Anxiety state, unspecified Pure hypercholesterolemia Ataxia Lack of coordination Weakness of both lower extremities [facility]* Diagnosis Onset Date Resolution Status Nausea and vomiting acute Chronic renal insufficiency, stage I chronic Essential (primary) hypertension chronic GENNARO (obstructive sleep apnea) chronic Respiratory failure chronic [facility] Work Phone: Evaluation note* Diagnosis Onset Date Resolution Status GENNARO (obstructive sleep apnea) chronic Respiratory failure [facility] Work Phone: evaluation note* Diagnosis Radiculopathy of lumbar region- Primary Thoracic or lumbosacral neuritis or radiculitis, unspecified documented in this encounter [facility] note* Diagnosis Lumbar radiculopathy- Primary Thoracic or lumbosacral neuritis or radiculitis, unspecified documented in this encounter [facility] note* Diagnosis Onset Date Resolution Status Insomnia acute Oral thrush acute GENNARO (obstructive sleep apnea) chronic Respiratory failure with hypoxia chronic Restrictive lung disease [facility]* Diagnosis Lumbar radiculopathy- Primary Thoracic or lumbosacral neuritis or radiculitis, unspecified Lumbar radiculopathy Thoracic or lumbosacral neuritis or radiculitis, unspecified Suspected deep vein thrombosis (DVT) COPD exacerbation (HCC) Obstructive chronic bronchitis with exacerbation Other pancytopenia (CMS/HCC) (HCC) Other pancytopenia Chronic hypoxemic respiratory failure (HCC) Chronic respiratory failure Hypertensive heart and chronic kidney disease with heart failure and stage 1 through stage 4 chronic kidney disease, or unspecified chronic kidney disease (HCC) 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) Current moderate episode of major depressive disorder without prior episode (HCC) Ulcerative colitis without complications, unspecified location (HCC) Morbid (severe) obesity due to excess calories (HCC) COPD exacerbation (HCC) Obstructive chronic bronchitis with exacerbation documented in this encounter [facility] note* Diagnosis Essential hypertension- Primary Unspecified essential hypertension Medicare annual wellness visit, initial Dementia 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 Chronic insomnia Insomnia, unspecified Mild intermittent asthma without complication GENNARO (obstructive sleep apnea) Obstructive sleep apnea (adult) (pediatric) Gastroesophageal reflux disease without esophagitis Esophageal reflux Stage 1 chronic kidney disease Pure hypercholesterolemia Anxiety Anxiety state, unspecified Current moderate episode of major depressive disorder without prior episode (HCC) Urinary frequency Bronchitis Bronchitis, not specified as acute or chronic Screening for diabetes mellitus Hematoma (nontraumatic) of breast Other specified disorders of breast documented in this encounter [facility] note* Diagnosis Thrombocytopenia, secondary- Primary Other secondary thrombocytopenia [facility] Diagnosis Low vitamin B12 level- Primary Other B-complex deficiencies [facility] July 16, 2022 7:43pm Note Date/Time July 16, 2022 7:17pm [facility] Medical Records Department [address] [place] [address] H&P Exam - Hospitalist 07/16/221942 MR#: [id number] Acct: [id number] Name: ALFIE HOGAN Rep #:[id number] : 1960 61 From: Mckenzie Austin MD PCP: Dr. Bernardino Moran MD Status:ADM IN [id number] HPI - General General Date of Admission: 07/16/22 Date of Service: 07/16/22 Chief Complaint: Acute EtOH Withdrawal, recent cough, dyspnea, wheezing. HPI Narrative The patient is a 61 y/o F w/ PMHx: Chronic dementia likely alcohol component related with no behavioral disturbance history, HTN, HLD, Hx VTE (DVT), COPD/Asthma with chronic hypoxic respiratory failure, Chronic anemia, Chronic thrombocytopenia, Anxiety and Depression, EtOH abuse with associated Chronic Liver disease w/ Chronic Bilirubin/LFT elevations, GENNARO on BIPAP q HS, Former tobacco use who presents to the [facility] ED on 07/16/22 with history of previously achieving sobriety starting in 2020 however she started to drink again over the last 2 to 3 months with at least 1 bottle of wine daily, recently been attempting to wean herself off of alcohol over the last 48 hours with sips occasionally with worsening withdrawal symptoms however she is began to have extreme tremors, tactile disturbances, agitation with nausea and emesis with also concurrently noted increased cough above her baseline over the last severaldays with concern for chills as well as subjective fever at home with a home COVID test noted to be positive on day of presentation prompt eventual ED evaluation. Work-up in the ED included T98.3, heart rate 102, BP 165/106, respiratory rate 18, 100% on 3 L nasal cannula, CBC with WC 5.4, hemoglobin 14.2, platelet 211 without marked shift, CMP with sodium 135, T. bili 1.30, AST/LT 46/30, alk phos 1 2, ethyl alcohol level 119, chest x-ray with no acute cardiopulmonary finding, rapid COVID and influenza antigen negative. Patient onevaluation does request that none of her family be notified that she has been admitted. In the ED patient ministered Zofran 4 mg IV x1 as well as Ativan 1 mgIV times a total of 2 thus far. [facility] Medical History Abdominal pain Abnormal liver CT Admitted to alcohol detoxification center Alcohol abuse Alcohol withdrawal Anemia Anxiety Arthritis Asthma BiPAP (biphasic positive airway pressure) dependence Bronchiectasis Bronchitis Chronic renal failure Chronic renal insufficiency, stage I Closed fracture of fibula, proximal, left Colitis Colitis with rectal bleeding Contusion of left hip Contusion of left shoulder Contusion of rib on right side Contusion of scalp COPD (chronic obstructive pulmonary disease) Dementia Depression DVT (deep venous thrombosis) Endocarditis Essential (primary) hypertension Former smoker Frequent falls Gastritis Gastroesophageal reflux disease History of diarrhea History of umbilical hernia HLD (hyperlipidemia) Hypertension Idiopathic right ventricular dilation Kidney disease Leukopenia Medical marijuana use Migraine Morbid obesity On home oxygen therapy GENNARO (obstructive sleep apnea) Osteoarthritis Pancytopenia Pneumonia Pyuria Respiratory failure with hypoxia Respiratory insufficiency Respiratory tract infection due to COVID-19 virus Restrictive lung disease Right bundle branch block (RBBB) Right ventricular systolic dysfunction Sepsis Sleep apnea Substance abuse Thrombocytopenia Home Medications pantoprazole 40 mg tablet,delayed release 40 mg PO DAILY acid reflux 12/09/18 [History Last Taken 12/28/21] fluoxetine 20 mg capsule 20 mg PO DAILY anxiety 01/14/21 [History Last Taken 12/28/21] benztropine 0.5 mg tablet 0.5 mg PO BID PRN PRN shaking 03/08/21 [History Last Taken 12/29/21] magnesium oxide 400 mg PO DAILY supplement 06/08/21 [History Last Taken 12/29/21] trazodone 100 mg tablet 100 mg PO QHS sleep 06/10/21 [History Last Taken 12/28/21] rosuvastatin 40 mg tablet 40 mg PO QHS cholesterol 07/19/21 [History Last Taken 12/28/21] thiamine HCl (vitamin B1) 50 mg tablet (Vitamin B-1) 50 mg PO TID supplement 07/19/21 [History Last Taken 12/28/21] folic acid 1 mg tablet 1 mg PO DAILY@0800 supplement 12/29/21 [History Last Taken Unknown] memantine 10 mg tablet 10 mg PO BID #0 tabs 12/31/21 [Rx Last Taken Unknown] potassium chloride 10 mEq tablet,extended release 20 meq PO BID #1 TAB 12/31/21 [Rx Last Taken Unknown] cyclobenzaprine 10 mg tablet 10 mg PO TID PRN muscle spasm #30 tabs 04/17/22 [Rx Last Taken Unknown] Allergy/AdvReac Type Severity Reaction Status Date / Time house dust Allergy ITCHY EYES Verified 07/16/22 17:33 Penicillins Allergy Hives Verified 07/16/22 17:33 Seasonal Allergies: Uncoded Allergy ITCHY EYES Verified 07/16/22 17:33 Family History Father Colon cancer Mother Cancer pancreatic Surgical History History of appendectomy History of cholecystectomy History of hysterectomy History of tubal ligation Social History (Updated 07/16/22 @ 19:[address] Mckenzie Austin MD) household members: none Smoking Status: Former smoker Tobacco: How many years used: 25 how long ago did patient quit smokin, 0.5ppd second hand exposure: Yes alcohol intake: current details: 2-3 months of 1 bottle wine/day. substance use type: marijuana ROS ROS Narrative Admission Review of Systems: CONSTITUTIONAL: No weight loss, + fever, chills, weakness or fatigue. HEENT: Eyes: No visual loss, blurred vision, double vision or yellow sclerae. Ears, Nose, Throat: No hearing loss, sneezing, congestion, runny nose or sore throat. SKIN: No rash or itching, lesions, wounds. CARDIOVASCULAR: + Chest tightness but related with her dyspnea, wheezing. No specific chest pain, palpitations, edema, orthopnea, syncopal events. RESPIRATORY: + shortness of breath, cough without marked sputum, wheezing, No hemoptysis. GASTROINTESTINAL: + anorexia, nausea, vomiting, No diarrhea, abdominal pain, melena, BRBPR. GENITOURINARY: No dysuria, frequency, urgency or retention. NEUROLOGICAL: + Tremors, tactile disturbances, mild agitation no headache, dizziness, syncope, paralysis, ataxia, numbness or tingling in the extremities, focal weakness, change in bowel or bladder control, seizure. MUSCULOSKELETAL: + muscle, back pain, joint pain or stiffness. HEMATOLOGIC: + Easy bleeding or bruising. LYMPHATICS: No enlarged nodes. No history of splenectomy. PSYCHIATRIC: + history of depression or anxiety. ENDOCRINOLOGIC: No reports of sweating, cold or heat intolerance. No polyuria orpolydipsia. ALLERGIES: + history of asthma, hives. Vital Signs Vital Signs Vital Signs: 07/16/22 17:28 Temperature 98.3 F Temperature Source Temporal Pulse Rate 102 H Respiratory Rate 18 Blood Pressure 165/106 H Blood Pressure Mean 125 Pulse Ox 100 Oxygen Delivery Method Nasal Cannula Oxygen Flow Rate (L/min) 3 Weight Weight: 226 lb 13.69 oz Body Mass Index (BMI) 35.5 Physical Exam Narrative Physical Examination: General: Awake, alert, oriented x 3 and cooperative, seated upright in the ED bed, fatigued, mildly ill-appearing Skin: Normal color, normal turgor, no icterus, no cyanosis except occasional abrasion, staged ecchymoses. HEENT: AT/NC, EOMI, PERRLA, dry MM, no carotid bruits or JVD noted; however, thickened neck makes evaluation. Lungs: Significantly tight, greater bases, appropriate respiratory rate, occasional end expiratory wheeze, no rales or rhonchi Heart: Mildly tachycardic with regular rhythm; no gallop, rub audible. Abdomen: Soft, obese, NTTP, ND, distant mildly hyperactive BS, unable to discernHSM well given habitus Extremities: No cyanosis, clubbing, or edema. Neurological: Patient awake, alert, oriented as noted, cognitive function intact; pupils equally reactive to light and accommodation, cranial nerves II-XII grossly normal, moving all 4 extremities, no focal deficits, strength moderately to severely global decrease given acute presentation, mildly tremulous, asking for additional Ativan for withdrawal symptoms. Psychiatric: Affect appears flat, fatigued, mildly restless, no acute evidence of depressive or anxiety feelings. Results Lab / Micro Data Result Diagrams: 07/16/22 18:20 07/16/22 18:20 Labs: Laboratory Results - last 24 hr 07/16/22 18:20: WBC 5.4, RBC 4.69, Hgb 14.2, Hct 45.4, MCV 96.8, MCH 30.3, MCHC 31.3 L, RDW Std Deviation 49.5 H, RDW Coeff of Jaun 14.0, Plt Count 211, MPV 10.5, Immature Gran % (Auto) 0.200, Neut % (Auto) 71.0 H, Lymph % (Auto) 19.8, Woodward % (Auto) 8.6, Eos % (Auto) 0.2, Baso % (Auto) 0.2, Absolute Neuts (auto) 3.8, Absolute Lymphs (auto) 1.06, Nucleated RBC % 0 07/16/22 18:20: Sodium 135 L, Potassium 4.4, Chloride 101, Carbon Dioxide 23.0, Anion Gap 11, BUN 12, Creatinine 0.80, Estim Creat Clear Calc 72.72, Est GFR (MDRD) Af Amer 94, Est GFR (MDRD) Non-Af 78, BUN/Creatinine Ratio 15.0, Glucose 105, Calcium 9.2, Total Bilirubin 1.30 H, Direct Bilirubin 0.19, AST 46 H, ALT 30, Alkaline Phosphatase 120 H, Total Protein 7.2, Albumin 3.6, Globulin 3.6 07/16/22 18:20: Ethyl Alcohol 119.0 Micro: Microbiology 07/16/22 18:11 Nasal Secretion SARS-CoV-2 & FLU Antigen (Rapid) - Final Radiology Impression Chest X-Ray 07/16/22 18:06 IMPRESSION: Normal x-ray examination of the chest. Electronically Signed: Bao White MD at 18:50 EST Reading Location ID and State: [address] [place] [address] , Service support , Assessment & Plan Assessment/Plan (1) Alcohol withdrawal: (2) COPD exacerbation: PLAN: Plan The patient is a 61 y/o F w/ PMHx: Chronic dementia likely alcohol component related with no behavioral disturbance history, HTN, HLD, Hx VTE (DVT), COPD/Asthma with chronic hypoxic respiratory failure, Chronic anemia, Chronic thrombocytopenia, Anxiety and Depression, EtOH abuse with associated Chronic Liver disease w/ Chronic Bilirubin/LFT elevations, GENNARO on BIPAP q HS, Former tobacco use who presents to the [facility] ED on 07/16/22 with history of previously achieving sobriety starting in 2020 however she started to drink again over the last 2 to 3 months with approximately 1 bottle of wine daily and has recently been attempting to wean herself off of alcohol over the last 48 hours with sips occasionally with worsening withdrawal symptoms however she is began to have extreme tremors, tactile disturbances, agitation with nausea and emesis with also concurrently noted increased cough above her baseline over the last severaldays with concern for chills as well as subjective fever at home with a home COVID test noted to be positive on day of presentation prompt eventual ED evaluation. #1. Acute EtOH Withdrawal: Will admit to medical surgical floor, routine labs obtained in the ED upon presentation with CBC not marked appearing, CMP with T. bili 1.30, AST/ALT 46/30, alk phos 120, ethyl alcohol level 119, given interest in sobriety, will initiate and continue on protocol with taper course of Phenobarbital, scheduled gabapentin for seizure prophylaxis, as needed Catapres,Bentyl, Vistaril, IV fluids, IV antiemetics, Tylenol as needed for pain. Will consult Case management for assistance for transition to next level of rehabilitation care. Mag, phos pending. Maintain on CIWA protocol concurrently. #2. Acute on chronic COPD/Asthma exacerbation w/ Chronic Hypoxic Respiratory Failure (3L NC): CXR w/ chronic changes, will maintain on home oxygen supplementation, continue ATC duonebs, PRN albuterol, IV methylprednisolone, HOB, IS parameters, will request procalcitonin as well as sputum culture and full respiratory viral panel and if any concern for bacterial etiology will add antibiotic therapy at that time. Rapid COVID antigen negative however patient reported having a positive test at home therefore to be cautious we will obtain a COVID PCR. #3. Chronic anemia, thrombocytopenia: Likely secondary to alcohol abuse historyadmission hemoglobin 12.6, platelet 115, prior baseline hemoglobin 10-11 primarily, prior baseline platelets 102-146, stable, trend #4. Chronic dementia likely alcohol component related with no behavioral disturbance history: Complicates presentation, will continue patient home Namenda, thiamine and folic acid. #5. Chronic bilirubin, LFT elevation: Admission CMP w/ T. bili 1.30, D bili 0.19, AST/ALT 46/30, alk phos 120, prior noted labs w/ admit 12/29/21 with T bili1.70, T bili 0.56, AST/ALT 25/21, alk phos 198, will continue treatment as noted, encourage follow-up outpatient. #6. History of VTE: Noted prior history, not currently on anticoagulant therapy. #7. Hypertension: Per most recent list does not appear to be on regimen, in theinterim we will have IV as needed hydralazine and add oral regimen once list clarified #8. Hyperlipidemia: We will continue patient on statin therapy. #9. Former Tobacco Abuse: Encouraged continued tobacco cessation. #10. Obesity: Weight loss and lifestyle changes encouraged. #11. GERD: We will continue patient on PPI. #12. Anxiety and depression: We will continue patient home fluoxetine, benztropine, trazodone. #13. GENNARO: BiPAP nightly. #14. DVT prophylaxis: Given significant medical history to be cautious we will maintain on Lovenox. #15. CODE status: Patient's healthcare power of prosecuting attorney is specifically her ex- and she does have a living will in place. She however request that none of her family be updated about her current presentation for alcohol withdrawal treatment. Discussed CODE status at length including difference between FULL code, DNR-CCA and DNR-CC status. Following discussions about the differences in these status, requested Full Code status. Advanced Care Planning Face to Face Time: 16 minutes. Admission Evaluation Time spent evaluating chart, patient history, patient evaluation, care planning and discussion with specialists: 76 minutes. Charges/Coding Visit Charges Inpatient E&M: 52044 Init Hosp L3 Procedures Hospitalists Procedures: 26613 Advncd Care Plan 30 Min 07/16/221942 <Electronically signed by Mckenzie Austin MD> Cosigner Signature (if applicable): CC: Dr. Mckenzie Austin MD; Dr. Bernardino Moran MD~ Signed [facility] Work Phone[facility] Work Phone: Hospital Discharge instructions Additional Instructions Take Imodium for diarrhea.[facility] Work Phone: Hospital Discharge instructions Additional Instructions Get MiraLAX and use 1 capful dissolved in at least 8 ounces of water daily. Drink plenty of fluids. You can double or even triple this if you feel like you need to in order to continue having bowel movements, but just make sure you are drinking plenty of water if you do this because it can make you dehydrated otherwise.[facility] Work Phone: Procedure anesthesia Narrative* Procedure Summary Procedure Name Responsible Anesthesiologist Anesthesia Start Time Anesthesia Stop Time Pain Service Consult Events No events on file. Meds * Agents No agents on file. * Blood No blood administrations on file. Lines, Drains, and Airways Type Details Placement Removal Wound/Incision 08/09/23; N; Incisio n; Back; Midline; REMOVAL HARDWARE LUMBAR 3/4/5, LAMINECTOMY LUMBAR 2, FUSION THORACIC 11-LUMBAR 3, INSTRUMENTATION THORACIC 11-LUMBAR 5, ALLOGRAFT, BONE MORPHOGENETIC PROTEIN 08/09/23 0000 by Katharine De Los Santos RN Lumbar Drain Placement Date: 12/25; Size: 19 Fr; Inserted by: BRANDON ACUÑA MD 08/09/23 0000 by Katharine De Los Santos RN Peripheral IV Placement Date: 12/25; Placement Time: 1014 (created via procedure documentation); Catheter Size: 18 G; Orientation: Right; Location: Forearm; Site Prep: Alcohol; Local Anesth: None; Technique: Anatomical landmarks; Insertion Attempts: 2; Difficult Venous Access? No 08/09/23 1014 by SUZY Mcdowell CRNA Peripheral IV Placement Date: 12/25; Placement Time: 1030 (created via procedure documentation); Catheter Size: 18 G; Orientation: Right; Location: Forearm; Site Prep: Alcohol; Local Anesth: None; Technique: Anatomical landmarks; Insertion Attempts: 2 08/09/23 1030 by SUZY Mcdowell CRNA External Urinary Catheter 08/10/23; 1200; ; Yes 08/10/23 1200 by Justin Chavez RN documented in this encounter [facility] for referral (narrative)No reason for referral information availableWCleveland [facility] Work Phone: Summary Purpose Family History No Family History Records Found Medical History Relation Name Comments Cancer Father colon High Blood Pressure Father Cancer Mother pancreatic Mental Illness Mother Relation Name Status Comments Father Mother Relationship Condition Age at Onset Recorded Date/T rhoda father Malignant neoplasm of colon Unknown mother Malignant neoplasm Unknown Advance Directives No Advanced Directives Records FoundDocuments on File Type Date Recorded Patient Inventory Control Analyst Expl anation Advance Directives and Living Will Power of Anesthesiology Fellow Documents on File Type Date Recorded Patient Inventory Control Analyst Expl anation Advance Directives and Livin g Will Advance Directives and Livin g Will 07/28/2019 11:40 AM Power of Anesthesiology Fellow Latest Code Status on File Code Status Date Activated Date Inactivated Comments Full Code 10/24/2019 9:18 PM Documents on File Type Date Recorded Patient Inventory Control Analyst Expl anation ACP-Advance Directive ACP-Advance Directive 07/28/2019 11:40 AM ACP-Power of Anesthesiology Fellow Latest Code Status on File Code Status Date Activated Date Inactivated Comments Full Code 10/24/2019 9:18 PM 10/26/2019 5:41 PM Documents on File Type Date Recorded Patient Inventory Control Analyst Expl anation ACP-Advance Directive ACP-Advance Directive 07/28/2019 11:40 AM ACP-Power of Anesthesiology Fellow Latest Code Status on File Code Status Date Activated Date Inactivated Comments DNR-CCA 08/24/2020 1:32 PM Full Code 08/24/2020 9:06 AM 08/24/2020 1:32 PM Full Code 10/24/2019 9:18 PM 10/26/2019 5:41 PM Advance Directive Response Recorded Date/ Time Advance Directives No November 24 12:12pm Living Will No October 15, 2021 4 :03pm Power of Anesthesiology Fellow No October 15, 2021 4:03pm Advance Directive Response Recorded Date/ Time Advance Directives No November 24 12:12pm Living Will No December 29, 2021 10:44pm Power of Anesthesiology Fellow No December 29 10:44pm Advance Directive Response Recorded Date/ Time Name of Medical Power of Anesthesiology Fellow PT UNSURE March 15, 2022 12:51pm Advance Directives No November 24 12:12pm Living Will Yes March 15 12:51pm Power of Anesthesiology Fellow Yes March 15, 2022 12:51pm Advance Directive Response Recorded Date/ Time Name of Medical Power of Anesthesiology Fellow PT UNSURE March 15, 2022 11:51am Advance Directives No November 24 11:12am Living Will Yes March 15 11:51am Power of Anesthesiology Fellow Yes March 15, 2022 11:51am Advance Directive Response Recorded Date/ Time Name of Medical Power of Anesthesiology Fellow SETH [id number] July 16, 2022 5:34pm Advance Directives No November 24 11:12am Living Will Yes July 16 5:34pm Power of Anesthesiology Fellow Yes July 16, 2022 5:34pm Documents on File Type Date Recorded Patient Inventory Control Analyst Expl anation Advance Directives and Living Will 07/25/2019 Advance Directive Response Recorded Date/ Time Advance Directives No November 24 12:12pm Living Will No January 04, 2023 11:42am Power of Anesthesiology Fellow No January 04 11:42am Documents on File Type Date Recorded Patient Inventory Control Analyst Expl anation Advance Directives and Living Will 07/25/2019 Advance Directive Response Recorded Date/ Time Advance Directives No November 24 11:12am Living Will No January 04, 2023 10:42am Power of Anesthesiology Fellow No January 04 10:42am Advance Directive Response Recorded Date/ Time Advance Directives No November 24 11:12am Living Will No July 12 10:22am Power of Anesthesiology Fellow No July 12, 2023 10:22am Advance Directive Response Recorded Date/ Time Name of Medical Power of Anesthesiology Fellow RADHA HOGAN August 18, 2023 7:24pm Advance Directives No November 24 12:12pm Living Will No August 18, 2023 7:24pm Power of Anesthesiology Fellow Yes August 17 7:24pm Advance Directive Response Recorded Date/ Time Living Will Yes July 13 4:03pm Power of Anesthesiology Fellow Yes July 13, 2024 4:03pm Name of Medical Power of Anesthesiology Fellow Seth Hogan July 13, 2024 4:03pm Living Will No August 09, 2024 5:33pm Power of Anesthesiology Fellow No August 09 5:33pm Living Will Yes July 15 10:51pm Power of Anesthesiology Fellow Yes July 15, 2024 10:51pm Name of Medical Power of Anesthesiology Fellow CR BECERRA July 15, 2024 10:51pm Advance Directives No November 24 11:12am Advance Directive Response Recorded Date/ Time Living Will Yes July 13 5:03pm Do you have a Healthcare Pow er of Anesthesiology Fellow? Yes July 13, 2024 5:03pm Name of Medical Power of Anesthesiology Fellow Sethpayton Hogan July 13, 2024 5:03pm Living Will No August 09, 2024 10:20pm Do you have a Healthcare Pow er of Anesthesiology Fellow? No August 09, 2024 10:20pm Living Will Yes July 15 11:51pm Do you have a Healthcare Pow er of Anesthesiology Fellow? Yes July 15, 2024 11:51pm Name of Medical Power of Anesthesiology Fellow CR LENNY AND NEILEE BECERRA July 15, 2024 11:51pm Advance Directives No November 24 12:12pm Advance Directive Response Recorded Date/ Time Living Will Yes July 13 5:03pm Do you have a Healthcare Pow er of Anesthesiology Fellow? Yes July 13, 2024 5:03pm Name of Medical Power of Anesthesiology Fellow Seth Hogan July 13, 2024 5:03pm Living Will No August 09, 2024 10:20pm Do you have a Healthcare Pow er of Anesthesiology Fellow? No August 09, 2024 10:20pm Do you have a Healthcare Pow er of Anesthesiology Fellow? Yes September 30, 2024 7:21pm Name of Medical Power of Anesthesiology Fellow brothers and sisters September 30, 2024 7:21pm Living Will Yes July 15 11:51pm Do you have a Healthcare Pow er of Anesthesiology Fellow? Yes July 15, 2024 11:51pm Name of Medical Power of Anesthesiology Fellow CR LENNY AND NEILEE BECERRA July 15, 2024 11:51pm Advance Directives No November 24 12:12pm Advance Directive Response Recorded Date/ Time Living Will Yes July 13 5:03pm Do you have a Healthcare Pow er of Anesthesiology Fellow? Yes July 13, 2024 5:03pm Name of Medical Power of Anesthesiology Fellow Seth Hogan July 13, 2024 5:03pm Living Will No August 09, 2024 10:20pm Do you have a Healthcare Pow er of Anesthesiology Fellow? No August 09, 2024 10:20pm Do you have a Healthcare Pow er of Anesthesiology Fellow? Yes September 30, 2024 7:21pm Name of Medical Power of Anesthesiology Fellow brothers and sisters September 30, 2024 7:21pm Do you have a Healthcare Pow er of Anesthesiology Fellow? Yes November 07, 2024 10:22am Living Will Yes July 15 11:51pm Do you have a Healthcare Pow er of Anesthesiology Fellow? Yes July 15, 2024 11:51pm Name of Medical Power of Anesthesiology Fellow CR UREÑA AND CHAR BECERRA July 15, 2024 11:51pm Advance Directives No November 24 12:12pm Advance Directive Response Recorded Date/ Time Living Will Yes July 13 5:03pm Do you have a Healthcare Pow er of Anesthesiology Fellow? Yes July 13, 2024 5:03pm Name of Medical Power of Anesthesiology Fellow Seth Hogan July 13, 2024 5:03pm Living Will No August 09, 2024 10:20pm Do you have a Healthcare Pow er of Anesthesiology Fellow? No August 09, 2024 10:20pm Do you have a Healthcare Pow er of Anesthesiology Fellow? Yes September 30, 2024 7:21pm Name of Medical Power of Anesthesiology Fellow brothers and sisters September 30, 2024 7:21pm Do you have a Healthcare Pow er of Anesthesiology Fellow? Yes November 07, 2024 7:56pm Name of Medical Power of Anesthesiology Fellow Cr Ureña November 07, 2024 7:56pm Living Will Yes July 15 11:51pm Do you have a Healthcare Pow er of Anesthesiology Fellow? Yes July 15, 2024 11:51pm Name of Medical Power of Anesthesiology Fellow CR UREÑA AND CHAR BECERRA July 15, 2024 11:51pm Advance Directives No November 24 12:12pm Discharge Instructions * Instructions* Evon Wetzel RN - 07/25/2019 Upper GI Endoscopy: What to expect at home ACTIVITY: DO NOT DRIVE, OPERATE MACHINERY, OR DRINK ANY ALCOHOL TODAY. Avoid making critical decisions, signing legal documents, or performing any activity that requires alertness for the rest of the day. You may be bloated or have gas pains since air was introduced into the stomach for the procedure. You may need to pass the gas throughout the day. You may experience a mild sore throat. You may use an ivga-gtv-pebgihg chloraseptic spray, gargle with warm salt water, or use throat lozenges. Notify your physician if this feeling lasts more than 48 hours. Rest the remainder You may resume normal activity tomorrow. Hiatal Hernia Discharge Instructions You must carefully read the Consumer Information Use and Disclaimer below in order to understand and correctly use this information About this topic Hiatal hernia is when part of the stomach is up in the chest. It sticks up through the muscle that divides the chest and abdomen. This muscle is called the diaphragm. It keeps stomach acid from goingback up the swallowing tube. The swallowing tube is called the esophagus. Image(s) What care is needed at home? ? Ask your doctor what you need to do when you go home. Make sure you ask questions if you do not understand what the doctor says. This way you will know what you need to do. ? Do not wear tight clothing over your belly. Wear clothes and belts that are loose around your waist. ? Raise the head of the bed up 6 to 8 inches (15 to 20 cm) or use a wedge pillow. This position maykeep stomach acid from getting into the esophagus. What follow-up care is needed? Your doctor may ask you to make visits to the office to check on your progress. Be sure to keep these visits. What drugs may be needed? The doctor may order drugs to: ? Lower stomach acid ? Stop heartburn ? Help with pain Will physical activity be limited? ? You may have to limit your activity. Talk to the doctor about the right amount of activity for you. Avoid sports that involve lifting heavy things and bending. This can cause stress on your belly. ? Avoid straining. Having trouble passing stool or hard stools may make your hernia worse. What changes to diet are needed? ? Avoid large, heavy meals. Eat a few small meals throughout the day. ? Avoid drinking too much with meals. ? Wait at least 2 to 3 hours after eating before lying down or bending over. ? Avoid foods that may upset the stomach. Some people have an upset belly after: o Coffee o [place] fruits and juices o Tomato products o Hot peppers o Fizzy drinks o Chocolate o Peppermint o Fatty foods o Beer, wine, and mixed drinks (alcohol) What problems could happen? ? Lower blood levels of iron ? No blood flow to hernia What can be done to prevent this health problem? ? Keep a healthy weight. ? Lose weight if you are overweight. ? Avoid smoking. Ask for help if it's hard to quit. When do I need to call the doctor? ? Heartburn that is worse when bending over or lying down ? Swallowing problems ? You are not feeling better in 2 to 3 days or you are feeling worse Teach Back: Helping You Understand The Teach Back Method helps you understand the information we are giving you. The idea is simple. After talking with the staff, tell them in your own words what you were just told. This helps to makesure the staff has covered each thing clearly. It also helps to explain things that may have been abit confusing. Before going home, make sure you are able to do these: ? I can tell you about my condition. ? I can tell you what changes I need to make with my diet or drugs. ? I can tell you what I will do if I have more heartburn when I am bending over or lying down. Where can I learn more? NHS Choices http://www.nhs.uk/conditions/hernia-hiatus/pages/introduction.aspx Consumer Information Use and Disclaimer: This information is not specific medical advice and does not replace information you receive from your health care provider. This is only a brief summary of general information. It does NOT include all information about conditions, illnesses, injuries, tests, procedures, treatments, therapies, discharge instructions or life-style choices that may apply to you. You must talk with your health care provider for complete information about your health and treatment options. This information should not be used to decide whether or not to accept your health care provider s advice, instructions or recommendations. Only your health care provider has the knowledge and training to provide advice that is right for you. Last Reviewed Date 2014-03-12 Last Updated 06/10/16 Gastritis Discharge Instructions You must carefully read the Consumer Information Use and Disclaimer below in order to understand and correctly use this information About this topic Gastritis is swelling in the lining of the stomach. Many things may cause gastritis. Sometimes, it is caused by an infection with a germ called H. pylori. Other times, it is caused by using nonsteroidal anti-inflammatory drugs called NSAIDs. These are things like ibuprofen (Advil, Motrin) or naproxen (Aleve, Naprosyn). Gastritis may be caused by alcohol. Sometimes, a serious infection or life-threatening illness is the cause. It may lead to ulcers and stomach cancer if not treated. Image(s) What care is needed at home? ? Ask your doctor what you need to do when you go home. Make sure you ask questions if you do not understand what the doctor says. This way you will know what you need to do. ? Wash your hands often with soap and water for at least 15 seconds, especially after coughing or sneezing. Alcohol-based hand sanitizers also work to kill germs. ? Take all your drugs as ordered by your doctor. Be sure to ask your doctor before you take any wnbt-kid-ocejujo (OTC) drugs or other alternative drugs or treatments. ? Do not eat foods that bother your stomach. ? Quit smoking. ? Do not drink beer, wine, and mixed drinks (alcohol). ? Eat small meals more often. ? Learn how to handle stress. ? If possible, avoid long-term use of aspirin and other anti-inflammatory drugs. What follow-up care is needed? Your doctor may ask you to make visits to the office to check on your progress. Be sure to keep these visits. What drugs may be needed? The doctor may order drugs to: ? Fight an infection ? Control how much acid your stomach makes ? Help healing Will physical activity be limited? You may want to limit your activity if you have belly pain. Having an upset stomach or throwing up may also limit what you do. You may need more rest if you feel weak or tired. What problems could happen? ? Stomach ulcer or bleeding ? Stomach cancer When do I need to call the doctor? ? Signs of infection. These include a fever of 100.4 F (38 C) or higher, chills. ? Throwing up blood ? Black stools or blood in your stools ? Pain in the upper part of the belly ? You are not feeling better in 2 to 3 days or you are feeling worse Teach Back: Helping You Understand The Teach Back Method helps you understand the information we are giving you. The idea is simple. After talking with the staff, tell them in your own words what you were just told. This helps to makesure the staff has covered each thing clearly. It also helps to explain things that may have been abit confusing. Before going home, make sure you are able to do these: ? I can tell you about my condition. ? I can tell you what changes I need to make with my diet or drugs. ? I can tell you what I will do if I throw up blood or have bloody or black tarry stools. Where can I learn more? National Digestive Diseases Information Clearinghouse http://digestive.niddk.nih.gov/ddiseases/pubs/gastritis/ Consumer Information Use and Disclaimer: This information is not specific medical advice and does not replace information you receive from your health care provider. This is only a brief summary of general information. It does NOT include all information about conditions, illnesses, injuries, tests, procedures, treatments, therapies, discharge instructions or life-style choices that may apply to you. You must talk with your health care provider for complete information about your health and treatment options. This information should not be used to decide whether or not to accept your health care provider s advice, instructions or recommendations. Only your health care provider has the knowledge and training to provide advice that is right for you. Last Reviewed Date 2013-12-19 Last Updated 07/01/16 Diverticulosis Discharge Instructions You must carefully read the Consumer Information Use and Disclaimer below in order to understand and correctly use this information About this topic Diverticulosis is a problem of the large bowel or colon. The wall of the bowel becomes weak and pushes outward. They form balloon-like pouches called diverticula or tics. When you have hard stool, you strain to have a bowel movement. This raises the pressure in the bowel and causes pouches or bulges to form. Most often, they do not cause a problem. If they become infected, you have diverticulitis. If you have both bleeding and infection it is diverticular disease. What care is needed at home? ? Ask your doctor what you need to do when you go home. Make sure you ask questions if you do not understand what the doctor says. ? Eat more whole grains, vegetables, and fruits. ? Do not wait to have a bowel movement. Go as soon as you have the urge. ? Drink 8 to 10 glasses of water each day. Talk to your doctor if you are drinking less fluids due to a health problem. ? Get regular exercise. What follow-up care is needed? Your doctor may ask you to make visits to the office to check on your progress. Be sure to keep these visits. What drugs may be needed? Most often with diverticulosis you will not need to take any drugs. Will physical activity be limited? When you are in pain, you may need to rest in bed. To ease the pain, use a heat compress on your belly. This should last only for a few days. What changes to diet are needed? Talk to your doctor about any changes you need to make to your diet. ? You do not need to avoid seeds, nuts, corn, or other similar foods. ? You will need to eat food rich in fiber and drink more water. o Eat 5 or more servings of fresh fruits and vegetables every day. o Eat 6 or more servings of whole-wheat grain breads and cereals. o Try to get 25 to 30 grams of fiber every day. Read the labels to learn how much fiber is in foods. ? Do not drink coffee, tea, or beer, wine, and mixed drinks (alcohol). What problems could happen? You may develop diverticulitis, which may cause: ? Pockets or pouches in your bowel may be infected or filled with pus. ? Hole or tear in your bowel ? Part of your bowel to become narrow ? You to need surgery What can be done to prevent this health problem? The best way to keep from having diverticulosis is to keep your bowel movements soft and normal. Tokeep more pouches from forming: ? Talk with your doctor about adding an xnzx-tag-msxyucw (OTC) fiber product to keep your stools soft. ? Limit how much pain drugs you take. Overuse of some pain drugs can cause hard stools; talk with your doctor. When do I need to call the doctor? ? Signs of infection. These include a fever of 100.4 F (38 C) or higher, chills. ? Mild pain or cramping in the lower part of the belly ? A feeling of bloating in the belly ? Belly pain that gets worse ? Blood in your stool ? Upset stomach or throwing up ? Stools get too loose or too hard ? Long-term hard stools Teach Back: Helping You Understand The Teach Back Method helps you understand the information we are giving you. After you talk with the staff, tell them in your own words what you learned. This helps to make sure the staff has described each thing clearly. It also helps to explain things that may have been confusing. Before going home, make sure you are able to do these: ? I can tell you about my condition. ? I can tell you what changes I need to make with my diet or drugs. ? I can tell you what I will do if I have pain or cramping in my lower belly or I have more belly pain. Where can I learn more? [employer] http://patients.gi.org/topics/fgvabrcnppwfhm-mxv-xhovttntndmnac/ FamilyDoctor.org http://familydoctor.org/familydoctor/en/diseases-conditions/diverticular-disease .html National Digestive Diseases Information Clearinghouse http://digestive.niddk.nih.gov/ddiseases/pubs/diverticulosis/index.aspx National Organization for Rare Disorders http://www.rarediseases.org/rixw-fchhcvl-tntgwxvdedx/rare-diseases/byID/464/view Abstract Consumer Information Use and Disclaimer: This information is not specific medical advice and does not replace information you receive from your health care provider. This is only a brief summary of general information. It does NOT include all information about conditions, illnesses, injuries, tests, procedures, treatments, therapies, discharge instructions or life-style choices that may apply to you. You must talk with your health care provider for complete information about your health and treatment options. This information should not be used to decide whether or not to accept your health care provider s advice, instructions or recommendations. Only your health care provider has the knowledge and training to provide advice that is right for you. Last Reviewed Date 2016-10-17 Last Updated 10/18/16 You may return to work tomorrow. DIET: You may resume a normal diet unless notified or recommended by your physician. You may be eager to eat a large meal after fasting, but it is a good idea to start with light mealsand ease into solid foods the first day. (*) If your stomach is upset, try clear liquids and bland, low-fat foods like plain toast or rice. Drink plenty of fluids for the first 24 hours (unless your physician states otherwise). MEDICATION: Resume your normal home medications unless notified or recommended by your physician. If you take blood thinners (such as Coumadin, Eliquis, Plavix, Aspirin, etc.) or anti-inflammatory medications (Advil, Motrin, Aleve, etc.), ask your physician when you may resume these medications. FOLLOW-UP APPOINTMENT: Follow up with or call your physician as needed. When to call for help: Call your doctor IMMEDIATELY or seek medical care if you experience: ? Severe pain or vomiting ? Coughing up more than a teaspoon of blood ? You pass a large amount of tar-like stools ? Your belly is swollen and firm with severe pain ? A fever greater than 101 degrees ? Redness or swelling of arm from the IV site for more than 48 hours ? Sudden onset of chest pain or shortness of breath ? If you become extremely dizzy or pass out (lose consciousness) IF YOU ARE UNABLE TO REACH YOUR PHYSICIAN GO TO NEAREST EMERGENCY DEPARTMENT documented in this encounter* Discharge Instr - Activity* Annika Cohen MD - 10/26/2019 2:17 PM EDT As tolerated * Discharge Instr - Diet* Annika Cohen MD - 10/26/2019 2:17 PM EDT ? Good nutrition is important when healing from an illness, injury, or surgery. Follow any nutrition recommendations given to you during your hospital stay. ? If you were given an oral nutrition supplement while in the hospital, continue to take this supplement at home. You can take it with meals, in-between meals, and/or before bedtime. These supplements can be purchased at most local grocery stores, pharmacies, and chain super-stores. If you have any questions about your diet or nutrition, call the hospital and ask for the dietitian. General diet documented in this encounter* Instructions* Ashley Crews, PhD - 08/25/2020 [facility], [facility] Dual Diagnosis program [place], [place] [phone] - IOP weekend program, evening group program, family education sessions, individual counseling, relapse prevention/aftercare group - in person and telehealth options documented in this encounter History of Present Illness * Lucas Estrada MD - 10/26/2019 11:41 AM EDT Pulmonary Progress Note 10/26/2019 11:41 AM Subjective: Admit Date: 10/24/2019 PCP: [place] Moran MD Chief Complaint Patient presents with Shortness of Breath +Covid 10/29/19 Interval History: feels better. Close to baseline. Still has some anxiety. Less cough. No fever or chills. 14 points review of systems has been obtained and negative except to was mentioned in HPI. Medications: Scheduled Meds: levofloxacin 750 mg Intravenous Q24H albuterol sulfate HFA 2 puff Inhalation 4x daily busPIRone 10 mg Oral BID pantoprazole 40 mg Oral QAM AC PARoxetine 40 mg Oral Daily potassium chloride 60 mEq Oral BID rosuvastatin 40 mg Oral Nightly sodium chloride flush 10 mL Intravenous 2 times per day enoxaparin 40 mg Subcutaneous Daily predniSONE 40 mg Oral Daily Continuous Infusions: Objective: Vitals: Temp (24hrs), Av.9 F (36.1 C), Min:96.7 F (35.9 C), Max:97 F (36.1 C) BP (!) 128/92 Pulse 111 Temp 96.7 F (35.9 C) (Temporal) Resp 16 Ht 5' 8 (1.727 m) Wt 256lb (116.1 kg) SpO2 98% BMI 38.92 kg/m I/O:24HR INTAKE/OUTPUT: No intake or output data in the 24 hours ending 10/26/19 1141 No intake/output data recorded. CVP: Physical Exam: General appearance - alert, ill appearing, and in no distress Mental status - alert, oriented to person, place, and time Eyes - pupils equal and reactive, extraocular eye movements intact. Normal sclera and conjunctiva Nose - normal and patent, no erythema Neck - supple, no significant adenopathy. No thyromegaly. Chest - diminished to auscultation, some rhonchi, symmetric air entry Heart - normal rate, regular rhythm, normal S1, S2, no murmurs, rubs, clicks or gallops Abdomen - soft, nontender, nondistended, no masses or organomegaly. Bowel sounds present. No hernia Rectal - deferred, not clinically indicated Neurological - alert, oriented, normal speech, no focal findings or movement disorder noted, motor and sensory grossly normal bilaterally Musculoskeletal - no joint tenderness, deformity or swelling Extremities - peripheral pulses normal, no pedal edema Skin - normal coloration and turgor, no rashes Psych: Normal mood BMP: Recent Labs 10/24/19 1831 10/25/19 0400 10/26/19 0242 NA 139 136 135 K 3.6 3.8 4.1 CL 98 95* 99 CO2 30 32* 30 BUN 14 11 17 CREATININE 1.17 0.85 0.87 GLUCOSE 110* 168* 125* . M,PHOS:3)@ Ionized Calcium: No results found for: IONCA CBC: Recent Labs 10/25/19 0400 10/26/19 0242 WBC 2.7* 2.9* HGB 10.4* 9.3* PLT 182 173 ABG: No results for input(s): PH, PCO2, PO2 in the last 72 hours. Assessment and Plan: Impression: - Respiratory insufficiency - Superimposed bacterial pneumonia - recent COVID pneumonia - chronic RF. On O2. Currently, not requiring more O2 - abnormal CT chest. likely represent COVID pneumonia changes with superimposed new pneumonia - GENNARO, on BiPAP Recommendations: - resume O2. At baseline now - Sputum culture in process - check COVID Abs - Levaquin for 7 days. Can switch to PO on DC - resume BiPAP - resume Lasix - will need repeat CT chest in 8 weeks - ok for DC planning from pulmonary stand point * Frantz Easley DTR - 10/26/2019 7:22 AM EDT Nutrition rescreen complete. Pt assigned a level one for nutrition care. * Annika Cohen MD - 10/25/2019 11:25 AM EDT Progress Note 10/25/2019 11:25 AM Name: Alfie Hogan IP Day: 1 Admit Date: 10/24/2019 4:59 PM PCP: Bernardino Moran MD Code Status: Full Code Subjective: doing ok. Up in chair eating lunch. She is on oxygen. Having some sob. She is coughing whitish/yellow sputum. No cp, n/v, f/c, dizziness, palpitations. LE US/CTA chest and echocardiogram reviewed. D/w pt Physical Examination: Vitals: BP (!) 143/90 Pulse 115 Temp 97.1 F (36.2 C) (Temporal) Resp 20 Ht 5' 8 (1.727 m) Wt 256lb (116.1 kg) SpO2 92% BMI 38.92 kg/m Temp (24hrs), Av.4 F (36.9 C), Min:97.1 F (36.2 C), Max:99.2 F (37.3 C) General appearance: alert, cooperative and no distress Mental Status: oriented to person, place and time and normal affect Lungs: coarse bs with rhonchi bilaterally, normal effort Heart: regular rate and rhythm, no murmur Abdomen: soft, nontender, nondistended, bowel sounds present, no masses Extremities: trace edema, no redness, no tenderness in the calves Skin: no gross lesions, rashes Data: Labs: Recent Labs 10/24/19 1831 10/25/19 0400 WBC 4.9 2.7* HGB 10.1* 10.4* PLT 193 182 Recent Labs 10/24/19 1831 10/25/19 0400 NA 139 136 K 3.6 3.8 CL 98 95* CO2 30 32* BUN 14 11 CREATININE 1.17 0.85 GLUCOSE 110* 168* Recent Labs 10/24/19 1831 10/25/19 0400 AST 32 28 ALT 19 19 BILITOT 0.8 0.9 ALKPHOS 93 106 Assessment and Plan: Pneumonia with abnl CT chest Chronic respiratory failure Recent CoVID pneumonia Anemia Leukopenia GENNARO HTN depression Plan: oxygen, BDs, continue antibiotics, follow up cx's/ags/labs, I/Os, home meds, Pulmonology following, see orders. * Lucas Estrada MD - 10/25/2019 10:01 AM EDT Consults Admit Date: 10/24/2019 PCP: Bernardino Moran MD CHIEF COMPLAINT: shortness of breath HPI: The patient is a 58 y.o. female with significant past medical history of ? Bronchiectasis, OSAand chronic RF who presented with worsening SOB and anxiety. This has been going on for few weeks. She tested positive for COVID on 09/28 at [facility]. Was hospitalized then for 7 days and did not require mechanical ventilation. She has been feeling short of breath since discharge. This is associated with severe anxiety. She was teary when I was getting history. Denies fever or chills this time. Has intermittent chest pain. She underwent COVID test which was negative. She had CT chest which I reviewed and interpreted personally and independently. There is B/L infiltrates, ? chroninicity but certainly can represent recent covid infection. She is on O2 with BiPAP at night and O2 3 L during day. In the hospital she is on 3 L Past Medical History: Diagnosis Date Anxiety Bronchiectasis (HCC) Depression Diastolic heart failure (HCC) Hypertension Kidney disease Kidney failure 01/09/2019 Kidney stone Oxygen decrease Currently on Home oxygen, uses with exertion Pulmonary hypertension (HCC) Past Surgical History: Procedure Laterality Date APPENDECTOMY 2003 BACK SURGERY CHOLECYSTECTOMY 2004 HERNIA REPAIR 1972 HYSTERECTOMY, TOTAL ABDOMINAL 2002 JOINT REPLACEMENT Bilateral hips TENDON RELEASE Right Right arm TONSILLECTOMY 1966 Current Medications: albuterol sulfate HFA 2 puff Inhalation 4x daily busPIRone 10 mg Oral BID pantoprazole 40 mg Oral QAM AC PARoxetine 40 mg Oral Daily potassium chloride 60 mEq Oral BID rosuvastatin 40 mg Oral Nightly sodium chloride flush 10 mL Intravenous 2 times per day enoxaparin 40 mg Subcutaneous Daily predniSONE 40 mg Oral Daily doxycycline hyclate 100 mg Oral Q12H furosemide 40 mg Intravenous BID Home Meds: Prior to Admission medications Medication Sig Start Date End Date Taking? Authorizing Provider dicyclomine (BENTYL) 10 MG capsule Take 1 capsule by mouth 4 times daily as needed (Nausea) 10/20/19Bernardino Moran MD prochlorperazine (COMPAZINE) 10 MG tablet Take 1 tablet by mouth every 6 hours as needed (Nausea) 10/20/19 Bernardino Moran MD busPIRone (BUSPAR) 10 MG tablet Take 1 tablet by mouth 2 times daily 10/20/19 11/19/19 Bernardino Moran MD temazepam (RESTORIL) 30 MG capsule Take 1 capsule by mouth nightly as needed for Sleep for up to 30days. 10/13/19 11/12/19 Bernardino Moran MD PARoxetine (PAXIL) 40 MG tablet Take 1 tablet by mouth daily 09/25/19 Bernardino Moran MD ondansetron (ZOFRAN) 4 MG tablet Take 1 tablet by mouth 3 times daily as needed for Nausea or Vomiting 09/18/19 Bernardino Moran MD albuterol sulfate HFA 108 (90 Base) MCG/ACT inhaler Inhale 2 puffs into the lungs 08/16/16 Historical Provider, rosuvastatin (CRESTOR) 40 MG tablet Take 1 tablet by mouth nightly 07/30/19 Bernardino Moran MD clindamycin (CLEOCIN) 150 MG capsule Take 150 mg by mouth 3 times daily Take 2 capsules one hour prior to any medical or dental procedures due to back fusion Historical Provider, potassium chloride (KLOR-CON M) 20 MEQ extended release tablet Take 60 mEq by mouth 2 times daily 06/25/19 Historical Provider, furosemide (LASIX) 40 MG tablet Take 40 mg by mouth daily 06/17/19 Historical Provider, pantoprazole (PROTONIX) 40 MG tablet take 1 tablet by mouth once daily 06/30/19 Bernardino Moran MD BiPAP Machine MISC Historical Provider, Allergies: Cat hair extract; Dust mite extract; Pcn [penicillins]; and Pollen extract Social History: reports that she quit smoking about 14 years ago. Her smoking use included cigarettes. She has a 12.50 pack-year smoking history. She has never used smokeless tobacco. She reports previous alcohol use. She reports that she does not use drugs. TOBACCO: reports that she quit smoking about 14 years ago. Her smoking use included cigarettes. Shehas a 12.50 pack-year smoking history. She has never used smokeless tobacco. ETOH: reports previousalcohol use. Family History: family history includes Cancer in her father and mother; High Blood Pressure in her father; Mental Illness in her mother. Review of Systems Complete review of systems done and negative unless otherwise noted positive. Objective: PHYSICAL EXAM: VITALS: BP (!) 143/90 Pulse 115 Temp 97.1 F (36.2 C) (Temporal) Resp 20 Ht 5' 8 (1.727 m) Wt 256 lb (116.1 kg) SpO2 92% BMI 38.92 kg/m 24HR INTAKE/OUTPUT: Intake/Output Summary (Last 24 hours) at 10/25/2019 1001 Last data filed at 10/24/2019 2239 Gross per 24 hour Intake Output 300 ml Net -300 ml CURRENT PULSE OXIMETRY: SpO2: 92 % 24HR PULSE OXIMETRY RANGE: SpO2 Av.8 % Min: 92 % Max: 100 % General appearance - alert, ill appearing, and in no distress Mental status - alert, oriented to person, place, and time Eyes - pupils equal and reactive, extraocular eye movements intact. Normal sclera and conjunctiva Nose - normal and patent, no erythema Neck - supple, no significant adenopathy. No thyromegaly. Chest - diminished to auscultation, some rhonchi, symmetric air entry Heart - normal rate, regular rhythm, normal S1, S2, no murmurs, rubs, clicks or gallops Abdomen - soft, nontender, nondistended, no masses or organomegaly. Bowel sounds present. No hernia Rectal - deferred, not clinically indicated Neurological - alert, oriented, normal speech, no focal findings or movement disorder noted, motor and sensory grossly normal bilaterally Musculoskeletal - no joint tenderness, deformity or swelling Extremities - peripheral pulses normal, no pedal edema Skin - normal coloration and turgor, no rashes Psych: Normal mood DATA: CBC: Recent Labs 10/24/19183010/25/19 0400 WBC 4.9 2.7* HGB 10.1* 10.4* HCT 31.3* 31.8* PLT 193 182 BMP: Recent Labs 10/24/19183010/25/19 0400 NA 139 136 K 3.6 3.8 CL 98 95* CO2 30 32* BUN 14 11 CREATININE 1.17 0.85 GLUCOSE 110* 168* CALCIUM 7.9* 8.2* HEPATIC: Recent Labs 10/24/19183010/25/19 0400 AST 32 28 ALT 19 19 BILITOT 0.8 0.9 ALKPHOS 93 106 LACTATE: No results for input(s): LACTA in the last 72 hours. PROCALCITONIN: Recent Labs 10/24/19 1831 PROCAL 0.58* TROPONIN: Recent Labs 10/24/19 1831 10/24/19 2218 TROPONINI <0.012 <0.012 Radiology Review: CXR portable: Results for orders placed during the hospital encounter of 10/24/19 XR CHEST PORTABLE Narrative Patient Name: ALFIE HOGAN ---Diagnostic Radiology--- Exam Date/Time 10/24/2019 18:13:21 EDT Exam CR Chest Portable Ordering Physician MD CRUZ, MAYCOL Pelletier Accession Number [id number] CPT4 Codes 77648 () Reason For Exam cough, dyspnea, COVID+ last month Report Portable chest 10/24/2019: Clinical Information: History of Covid positive. Findings: A single AP portable view of the chest was obtained at 1808 hours. No prior studies for comparison. The trachea is midline. The heart is not enlarged. There is prominence of the interstitial markings bilaterally with the suggestion of some nodularity. Dedicated PA and lateral views of the chest are recommended for further evaluation. If that cannot be obtained, consider CT scanning. Report Dictated on Workstation: [id number] --- Final --- Dictating Physician: MD SCOTT RISA Signed Date and Time: 10/24/2019 6:20 pm Signed by: MD SCOTT RISA Transcribed Date and Time: 10/24/2019 6:21 Impression: - respiratory insufficiency - ? Superimposed bacterial pneumonia - recent COVID pneumonia - chronic RF. On O2. Currently, not requiring more O2 - abnormal CT chest. Could represent COVID pneumonia changes vs chronic due to known lung disease vs superimposed new pneumonia - GENNARO, on BiPAP Recommendations: - agree with O2. Resume at same rate - check strep pneumo and legionella antibodies - check COVID Abs - start Levaquin - check sputum culture - resume BiPAP - resume Lasix Thank you for allowing as to participate in the care of this pleasant patient. Further recommendations to follow. * Gisela Mcleod RN - 10/24/2019 10:10 PM EDT Report given to Elías MONTES on [address]. Patient transported to [facility]. documented in this encounter* Talya Peterson MD - 08/26/2020 11:46 AM EDT Alfie Hogan is a 59 y.o. female Chief Complaint Patient presents with Alcohol Problem pt request detox, large bottle of wine a day sometimes 2 a day last drink was midnight Seen for Rx of depression and anxiety. She was receptive to my feedback that our strategy of avoiding use of lorazepam as requested was intended to avoid using strategies which she cannot employ after discharge home. is leaving her, and children will not speak to her. She denies SI and declines offer of voluntary psychiatric admission. We discussed use of prozac 30 mg daily and trazodone,I offered increase in trazodone dose to help with symptoms No current facility-administered medications on file prior to encounter. Current Outpatient Medications on File Prior to Encounter Medication Sig Dispense Refill dicyclomine (BENTYL) 10 MG capsule Take 1 capsule by mouth 4 times daily as needed (Nausea) 120 capsule 0 gabapentin (NEURONTIN) 100 MG capsule Take 2 capsules by mouth 3 times daily for 16 days. 96 capsule 0 traZODone (DESYREL) 50 MG tablet Take 1 tablet by mouth nightly 30 tablet 0 prochlorperazine (COMPAZINE) 10 MG tablet Take 1 tablet by mouth every 6 hours as needed (Nausea) 20 tablet 0 FLUoxetine (PROZAC) 20 MG capsule Take 1 capsule by mouth daily (Patient taking differently: Take 30 mg by mouth daily ) 30 capsule 0 furosemide (LASIX) 40 MG tablet Take 2 tablets by mouth daily 60 tablet 2 potassium chloride (KLOR-CON M) 20 MEQ extended release tablet take 3 tablets by mouth twice a day 180 tablet 1 rosuvastatin (CRESTOR) 40 MG tablet Take 1 tablet by mouth nightly 90 tablet 0 pantoprazole (PROTONIX) 40 MG tablet Take 1 tablet by mouth daily 90 tablet 1 Multiple Vitamins-Minerals (THERAPEUTIC MULTIVITAMIN-MINERALS) tablet Take 1 tablet by mouth daily mometasone-formoterol (DULERA) 100-5 MCG/ACT inhaler Inhale 2 puffs into the lungs 2 times daily 1 Inhaler 1 albuterol sulfate HFA 108 (90 Base) MCG/ACT inhaler Inhale 2 puffs into the lungs every 6 hours as needed for Wheezing or Shortness of Breath BiPAP Machine MISC Spacer/Aero-Holding Chambers (AEROCHAMBER MV) MISC Use as directed with metered dose inhaler 1 each0 Allergies Allergen Reactions Cat Hair Extract Other (See Comments) Dust Mite Extract Pcn [Penicillins] Hives Pollen Extract And ragweed Vitals: 08/26/20 0253 08/26/20 0740 08/26/20 1037 08/26/20 1041 BP: 96/66 126/85 (!) 142/77 (!) 142/77 Pulse: 78 93 96 97 Resp: 16 22 Temp: 96.6 F (35.9 C) 97.9 F (36.6 C) TempSrc: Temporal Temporal Temporal SpO2: 95% 100% Social History Tobacco Use Smoking status: Former Smoker Packs/day: 0.50 Years: 25.00 Pack years: 12.50 Types: Cigarettes Quit date: 2005 Years since quittin.2 Smokeless tobacco: Never Used Substance Use Topics Alcohol use: Yes Frequency: Never Binge frequency: Never Comment: one large bottle and one small bottle each day Drug use: No Well developed, well nourished, tearful. Normal rate and content of speech Behavior socially appropriate Mood depressed. Affect is mood congruent No suicidal ideation, no homicidal ideation No psychosis or hallucinations reported or evident Form and content of thought normal No cognitive impairments, fund of knowledge intact Normal gait Abstracts well. Insight and judgement intact Recent Results (from the past 48 hour(s)) Urine Drug Screen Collection Time: 08/24/20 1:15 PM Result Value Ref Range Amphetamines, urine Negative NA Barbiturates, Ur Positive NA Benzodiazepine Ur Qual Negative NA Cocaine Metabolites, Ur Negative NA Methadone, Urine Negative NA Opiates, Urine Negative NA Oxycodone Screen, Ur Negative NA PCP, Urine Negative NA Lactic Acid, Plasma Collection Time: 08/24/20 1:15 PM Result Value Ref Range Lactic Acid 1.3 0.7 - 2.0 mmol/L Lactic Acid, Plasma Collection Time: 08/25/20 12:04 AM Result Value Ref Range Lactic Acid 1.1 0.7 - 2.0 mmol/L Basic Metabolic Panel w/ Reflex to MG Collection Time: 08/25/20 12:10 AM Result Value Ref Range Sodium 137 135 - 145 mmol/L Potassium 2.9 (L) 3.5 - 5.1 mmol/L Chloride 106 98 - 107 mmol/L CO2 24 22 - 30 mmol/L Anion Gap 7 3 - 13 mmol/L Glucose 156 (H) 70 - 100 mg/dL BUN 16 7 - 20 mg/dL CREATININE 0.89 0.52 - 1.25 mg/dL eGFR 82.4 >60 mL/min EGFR IF NonAfrican Maltese 71.1 >60 mL/min Calcium 7.8 (L) 8.4 - 10.4 mg/dL Magnesium Collection Time: 08/25/20 12:10 AM Result Value Ref Range Magnesium 1.8 1.6 - 2.3 mg/dL Albumin Collection Time: 08/25/20 12:10 AM Result Value Ref Range Albumin,Serum 3.4 (L) 3.5 - 5.0 g/dL Phosphorus Collection Time: 08/25/20 12:10 AM Result Value Ref Range Phosphorus 3.1 2.5 - 4.5 mg/dL CBC Collection Time: 08/25/20 3:49 AM Result Value Ref Range WBC 3.2 (L) 3.6 - 10.7 10*3/uL RBC 3.70 (L) 3.80 - 5.20 10*6/uL Hemoglobin 11.1 (L) 11.7 - 16.0 g/dL Hematocrit 33.2 (L) 35.0 - 47.0 % MCV 89.7 79.0 - 98.0 fL MCH 29.9 26.0 - 34.0 pg MCHC 33.4 32.0 - 36.0 % RDW 13.8 11.5 - 14.5 % Platelets 104 (L) 140 - 440 10*3/uL MPV 8.0 7.4 - 10.4 fL Add On Lab Test Collection Time: 08/25/20 8:01 AM Result Value Ref Range Add On Accepted NA Add On Lab Test Collection Time: 08/25/20 8:06 AM Result Value Ref Range Add On Accepted NA Lactic Acid, Plasma Collection Time: 08/25/20 8:36 AM Result Value Ref Range Lactic Acid 2.3 (HH) 0.7 - 2.0 mmol/L Lactic Acid, Plasma Collection Time: 08/25/20 4:42 PM Result Value Ref Range Lactic Acid 1.7 0.7 - 2.0 mmol/L CBC Collection Time: 08/26/20 2:26 AM Result Value Ref Range WBC 3.8 3.6 - 10.7 10*3/uL RBC 3.70 (L) 3.80 - 5.20 10*6/uL Hemoglobin 10.7 (L) 11.7 - 16.0 g/dL Hematocrit 32.7 (L) 35.0 - 47.0 % MCV 88.5 79.0 - 98.0 fL MCH 29.0 26.0 - 34.0 pg MCHC 32.8 32.0 - 36.0 % RDW 13.6 11.5 - 14.5 % Platelets 116 (L) 140 - 440 10*3/uL MPV 8.2 7.4 - 10.4 fL Basic Metabolic Panel w/ Reflex to MG Collection Time: 08/26/20 2:26 AM Result Value Ref Range Sodium 137 135 - 145 mmol/L Potassium 3.4 (L) 3.5 - 5.1 mmol/L Chloride 102 98 - 107 mmol/L CO2 29 22 - 30 mmol/L Anion Gap 6 3 - 13 mmol/L Glucose 167 (H) 70 - 100 mg/dL BUN 13 7 - 20 mg/dL CREATININE 0.96 0.52 - 1.25 mg/dL eGFR 75.2 >60 mL/min EGFR IF NonAfrican Maltese 64.9 >60 mL/min Calcium 9.1 8.4 - 10.4 mg/dL Magnesium Collection Time: 08/26/20 2:26 AM Result Value Ref Range Magnesium 1.5 (L) 1.6 - 2.3 mg/dL No CT brain for review. Assessment Depression with anxiety Alcohol use disorder Plan Will increase trazodone to 100 mg daily (maximum dose when used as monotherapy for depressed adultsis 600 mg daily in divided doses). Will continue fluoxetine. Patient has my card and may call to arranged virtual or in person follow up with me. * Aliya Sanchez, DTR - 08/26/2020 9:13 AM EDT Nutrition rescreen completed. Chart reviewed. Patient to be monitored and followed by the diet special effects technician. * Eugene Hernandez MD - 08/26/2020 6:53 AM EDT Images from the original note were not included. Addiction Medicine Inpatient Progress Note Patient: Alfie Hogan Chief Complaint Patient presents with Alcohol Problem pt request detox, large bottle of wine a day sometimes 2 a day last drink was midnight Problem List: Principal Problem: Alcohol withdrawal syndrome with complication (HCC) Active Problems: Essential hypertension Hyperlipidemia Current moderate episode of major depressive disorder without prior episode (HCC) GENNRAO (obstructive sleep apnea) Anxiety Class 3 severe obesity in adult ([facility]) Chronic hypoxemic respiratory failure (HCC) Diastolic heart failure (HCC) Severe alcohol use disorder (HCC) History of opioid abuse (HCC) Hypokalemia GERD (gastroesophageal reflux disease) COPD (chronic obstructive pulmonary disease) ([facility]) Resolved Problems: Hypomagnesemia Lactic acidosis Subjective Last 4 CIWA scores per RN assessments: 8 - 6 - 17 - 12 Interim History: No acute changes overnight regarding alcohol withdrawal. When I enter the room this am she was resting comfortably in bed and checking her phone. As soon as she saw me she started become emotional and tearful. Review of Systems: Review of Systems Constitutional: Negative for activity change, chills, diaphoresis and fatigue. Respiratory: Negative. Cardiovascular: Negative. Gastrointestinal: Negative. Neurological: Positive for tremors and weakness. Psychiatric/Behavioral: Negative for agitation, confusion, hallucinations, self- injury and suicidalideas. The patient is nervous/anxious. Objective Physical Exam: Vitals: 08/25/20 2129 08/25/20 2203 08/25/20 2303 08/26/20 0253 BP: 106/70 91/64 91/66 96/66 Pulse: 103 95 91 78 Resp: 18 16 16 16 Temp: 98.4 F (36.9 C) 96.1 F (35.6 C) 96.9 F (36.1 C) 96.6 F (35.9 C) TempSrc: Temporal Temporal Temporal Temporal SpO2: 96% 100% 96% 95% Physical Exam Constitutional: She is oriented to person, place, and time. No distress. HENT: Head: Normocephalic and atraumatic. Eyes: Pupils are equal, round, and reactive to light. Conjunctivae and EOM are normal. Neck: Normal range of motion. Neck supple. Cardiovascular: Normal rate. Pulmonary/Chest: Effort normal. Musculoskeletal: Normal range of motion. Neurological: She is alert and oriented to person, place, and time. Skin: Skin is warm and dry. She is not diaphoretic. Psychiatric: Her speech is normal. Her mood appears anxious. Her affect is blunt, labile and inappropriate. She is not agitated and not actively hallucinating. Thought content is not paranoid and notdelusional. Cognition and memory are normal. She expresses inappropriate judgment. She expresses no homicidal and no suicidal ideation. Nursing note and vitals reviewed. Medications: acetaminophen 1,000 mg Oral 3 times per day PHENobarbital 64.8 mg Oral Q4H [Held by provider] furosemide 80 mg Oral Daily mometasone-formoterol 2 puff Inhalation BID pantoprazole 40 mg Oral Daily rosuvastatin 40 mg Oral Nightly traZODone 50 mg Oral Nightly sodium chloride flush 10 mL Intravenous 2 times per day enoxaparin 40 mg Subcutaneous Daily thiamine 100 mg Oral Daily multivitamin 1 tablet Oral Daily gabapentin 300 mg Oral BID FLUoxetine 30 mg Oral Daily folic acid 1 mg Oral Daily ipratropium-albuterol, hydrOXYzine, LORazepam, PHENobarbital, sodium chloride flush, promethazine OR [DISCONTINUED] ondansetron, polyethylene glycol, sodium chloride flush Recent Imaging: No results found. Labs: Last 24 hours: Recent Results (from the past 24 hour(s)) Add On Lab Test Collection Time: 08/25/20 8:01 AM Result Value Ref Range Add On Accepted NA Add On Lab Test Collection Time: 08/25/20 8:06 AM Result Value Ref Range Add On Accepted NA Lactic Acid, Plasma Collection Time: 08/25/20 8:36 AM Result Value Ref Range Lactic Acid 2.3 (HH) 0.7 - 2.0 mmol/L Lactic Acid, Plasma Collection Time: 08/25/20 4:42 PM Result Value Ref Range Lactic Acid 1.7 0.7 - 2.0 mmol/L CBC Collection Time: 08/26/20 2:26 AM Result Value Ref Range WBC 3.8 3.6 - 10.7 10*3/uL RBC 3.70 (L) 3.80 - 5.20 10*6/uL Hemoglobin 10.7 (L) 11.7 - 16.0 g/dL Hematocrit 32.7 (L) 35.0 - 47.0 % MCV 88.5 79.0 - 98.0 fL MCH 29.0 26.0 - 34.0 pg MCHC 32.8 32.0 - 36.0 % RDW 13.6 11.5 - 14.5 % Platelets 116 (L) 140 - 440 10*3/uL MPV 8.2 7.4 - 10.4 fL Basic Metabolic Panel w/ Reflex to MG Collection Time: 08/26/20 2:26 AM Result Value Ref Range Sodium 137 135 - 145 mmol/L Potassium 3.4 (L) 3.5 - 5.1 mmol/L Chloride 102 98 - 107 mmol/L CO2 29 22 - 30 mmol/L Anion Gap 6 3 - 13 mmol/L Glucose 167 (H) 70 - 100 mg/dL BUN 13 7 - 20 mg/dL CREATININE 0.96 0.52 - 1.25 mg/dL eGFR 75.2 >60 mL/min EGFR IF NonAfrican Maltese 64.9 >60 mL/min Calcium 9.1 8.4 - 10.4 mg/dL Magnesium Collection Time: 08/26/20 2:26 AM Result Value Ref Range Magnesium 1.5 (L) 1.6 - 2.3 mg/dL Lab trends: CBC: Recent Labs 08/24/20 0540 08/25/20 03408/26/20225 WBC 7.7 3.2* 3.8 HGB 13.9 11.1* 10.7* PLT 174 104* 116* MCV 88.0 89.7 88.5 RDW 14.1 13.8 13.6 BMP: Recent Labs 08/24/20 0540 08/25/20 0010 08/26/20225 NA 140 137 137 K 3.4* 2.9* 3.4* CL 100 106 102 CO2 25 24 29 BUN 15 16 13 CREATININE 1.00 0.89 0.96 CALCIUM 9.4 7.8* 9.1 MG 1.4* 1.8 1.5* PHOS 2.9 3.1 -- Liver Profile: Recent Labs 08/24/20 0540 08/25/20 0010 AST 35 -- ALT 28 -- BILITOT 0.9 -- ALKPHOS 106 -- LABALBU 4.9 3.4* PROT 7.5 -- Glucose: Recent Labs 08/24/20 0540 08/25/20 0010 08/26/20 0226 GLUCOSE 164* 156* 167* Lactic Acid: Recent Labs 08/25/20 0004 08/25/20 0836 08/25/20 1642 LACTA 1.1 2.3* 1.7 Cardiac Injury Profile: No results for input(s): CKTOTAL, CKMB, TROPONINI in the last 72 hours. 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 Anxiety/depression/insomina Chronic pain Chronic hypoxic respiratory failure on 5L O2 at home GENNARO on BIPAP Hx of opioid abuse Med-seeking behavior The last use of alcohol was on 08/23. Plan Discontinue scheduled phenobarbital. Done with detox. I will leave phenobarbital prn for any possible withdrawal if she stays in hospital. Thiamine and folic acid PRN medications for withdrawal symptom management added. CIWA scores per unit protocol. Psychiatry service is following. Recovery plan: I offered her residential treatment again this morning but she refused that option. She told me she found an apartment in [place] and going to stay there and follow up with [facility] for IOP after discharge. I left their information in discharge instruction for follow up. Remaining medical management per primary team. She can be discharged from detox standpoint. Addiction medicine signing off. Please Recall if further assistance needed. Eugene Kovacs MD Addiction Medicine 08/26/2020 at 6:53 AM * Ashley Crews, PhD - 08/25/2020 9:10 AM EDT Department of Psychiatry Progress Note In/Out/Time: 8:10 - 8:30am; 20 min Reason for consult: f/u regarding depression, anxiety, alcohol abuse SUBJECTIVE: Patient endorsing continued anxiety, depression, and headache. States she spoke with her and she is able to return home upon discharge. Verbalizes willingness to complete CHU treatment but she did not complete recommended IOP previously as she is enrolled in twice weekly pulmonary rehab I can't do something 5 days a week, it's just too much for me. OBJECTIVE No evidence of SI/HI. At this time, no manic, no psychotic symptoms present. MENTAL STATUS EXAM Appearance: hospital gown; glasses; sitting up in bed Behavior: cooperative Activity: decreased Speech: spontaneous, normal rate, normal volume Mood: anxious and depressed, Affect: congruent with mood, labile Associations: goal-directed Thought content: no paranoia or delusions Thought process: organized Orientation: oriented in all spheres Attention: good Concentration: good Insight: fair Judgment: fair Cognitive: Adequate fund of knowledge. Memory, attention, and concentration are grossly intact. Suicidal Thoughts: Denies suicidal thoughts, intentions, and plans. Denies thoughts of self-harm. Denies morbid ideation. Functional status: impaired Impression: MDD, recurrent Anxiety Unspecified; R/O FERN Alcohol use disorder, severe Prognosis: fair Severity of stressors is severe. Source of stressors: chronic medical concerns, alcohol abuse, interpersonal ASSESSMENT: No evidence of SI/HI. With continued symptoms of depression and anxiety, exacerbated by alcohol withdrawal and psychosocial stressors. Continues to minimize her need for CHU treatment to remain sober,but is receptive to discussing treatment options. PLAN: Session focused on providing active listening and offering encouragement. Facilitated de-escalationof anxious affect. Encouraged helpful self-talk and breaking down seemingly overwhelming tasks intomanageable steps. Had pilo discussion on importance of obtaining CHU and mental health f/u treatment to remain sober following detox. In addition to previously provided CHU IOP resources, provided contact information for [facility], as they offer evening and weekend IOP programing, as well as outpatient mental health therapy and relapse recovery groups; both in person and telehealth options. Again, reviewed ER services with patient. Safety planning was discussed: patient instructed to [id number] or go directly to nearest ER for any suicidal or homicidal thoughts following hospital discharge. Patient voiced clear understanding of all treatment recommendations and plans. Treatment Modality/Intervention: assessment; supportive intervention; psycho- education and provision of resources (see discharge instructions) Risk Management: routine: no special precautions necessary Thank you for consulting our services. * Sarahy Motta PA - 08/25/2020 8:08 AM EDT Images from the original note were not included. [facility] Progress Note Alfie Hogan : 1960(59 y.o.) Date: 08/25/2020 8:09 AM Subjective: HPI The patient complains of alcohol withdrawal Pt c/o WEBER this morning, denies visual changes or photo/phonophobia. States tylenol doesn't usually help with pain. Also requesting additional dose of ativan as tremor and anxiety have worsened. Also complaining of nausea, no episodes of emesis. Appetite is unchanged. Pt does weigh herself daily at home, most recently was 270 Denies fever/ chills, dizziness, chest pain, SOB increased from baseline, abd pain, change in bowelor bladder habits, LE edema. Spoke with RN this AM, okay to give 400mg ibuprofen once for WEBER, avoiding opiates given Hx, and additional 1mg PO ativan for tremor. Not tolerating IV K+ well however dilution with NS seemed to lessen discomfort. Will switch back to PO supplement tomorrow. Lactic acid elevated again this AM, hold lasix tomorrow and recheck after fluids today. Okay to discontinue checks once normalized. Given Hx of HF, needs daily weights. Scheduled Meds: potassium chloride 10 mEq Intravenous Q1H furosemide 80 mg Oral Daily mometasone-formoterol 2 puff Inhalation BID pantoprazole 40 mg Oral Daily rosuvastatin 40 mg Oral Nightly traZODone 50 mg Oral Nightly sodium chloride flush 10 mL Intravenous 2 times per day enoxaparin 40 mg Subcutaneous Daily thiamine 100 mg Oral Daily multivitamin 1 tablet Oral Daily ipratropium-albuterol 1 ampule Inhalation 4x daily PHENobarbital 97.2 mg Oral Q4H gabapentin 300 mg Oral BID FLUoxetine 30 mg Oral Daily folic acid 1 mg Oral Daily Continuous Infusions: PRN Meds:sodium chloride flush, promethazine OR ondansetron, polyethylene glycol, sodium chloride flush, LORazepam, acetaminophen OR [DISCONTINUED] acetaminophen Review of Systems Constitutional: Negative for appetite change and fever. Eyes: Negative for photophobia and visual disturbance. Respiratory: Positive for shortness of breath (Chronic). Negative for cough. Cardiovascular: Negative for chest pain. Gastrointestinal: Negative for abdominal pain, constipation and diarrhea. Genitourinary: Negative for difficulty urinating and dysuria. Neurological: Positive for headaches. Negative for dizziness and light-headedness. Psychiatric/Behavioral: The patient is nervous/anxious. Interval Pertinent History: Social History Tobacco Use Smoking status: Former Smoker Packs/day: 0.50 Years: 25.00 Pack years: 12.50 Types: Cigarettes Quit date: 2005 Years since quittin.2 Smokeless tobacco: Never Used Substance Use Topics Alcohol use: Yes Frequency: Never Binge frequency: Never Comment: one large bottle and one small bottle each day Objective: Patient Vitals for the past 24 hrs: BP Temp Temp src Pulse Resp SpO2 08/25/20 0758 129/82 96.8 F (36 C) Temporal 91 15 97 % 08/25/20 0220 110/65 97.6 F (36.4 C) Temporal 79 14 94 % 08/24/20 2140 16 95 % 08/24/20 1945 138/78 96.7 F (35.9 C) Temporal 110 16 94 % 08/24/20 1720 95 % 08/24/20 1600 107/61 98.1 F (36.7 C) Tympanic 103 16 93 % 08/24/20 1337 16 96 % 08/24/20 1142 113/75 98.2 F (36.8 C) Temporal 104 96 % 08/24/20 0828 128/88 97.8 F (36.6 C) Oral 68 16 96 % Average, Min, and Max for last 24 hours Vitals: TEMPERATURE: Temp Av.5 F (36.4 C) Min: 96.7 F (35.9 C) Max: 98.2 F (36.8 C) RESPIRATIONS RANGE: Resp Av.6 Min: 14 Max: 16 PULSE RANGE: Pulse Av.5 Min: 68 Max: 110 BLOOD PRESSURE RANGE: Systolic (24hrs), Av , Min:107 , Max:138 ; Diastolic (24hrs), Av, Min:61, Max:88 PULSE OXIMETRY RANGE: SpO2 Av.1 % Min: 93 % Max: 97 % I/O last 3 completed shifts: In: 400 [P.O.:400] Out: - Physical Exam Constitutional: Appearance: She is obese. She is not ill-appearing. Comments: Anxious adult female sitting up on side of bed. Cardiovascular: Rate and Rhythm: Normal rate and regular rhythm. Pulses: Normal pulses. Heart sounds: Normal heart sounds. Pulmonary: Effort: Pulmonary effort is normal. Breath sounds: Normal breath sounds. Abdominal: General: Bowel sounds are normal. There is no distension. Palpations: Abdomen is soft. Tenderness: There is no abdominal tenderness. Musculoskeletal: Right lower leg: No edema. Left lower leg: No edema. Skin: General: Skin is warm and dry. Neurological: Mental Status: She is alert and oriented to person, place, and time. Motor: Tremor (b/l UE) present. Psychiatric: Mood and Affect: Mood is anxious. Affect is tearful. Behavior: Behavior is hyperactive. Behavior is cooperative. Lab Results Component Value Date WBC 3.2 (L) 08/25/2020 HGB 11.1 (L) 08/25/2020 HCT 33.2 (L) 08/25/2020 MCV 89.7 08/25/2020 PLT 104 (L) 08/25/2020 Lab Results Component Value Date NA 137 08/25/2020 K 2.9 08/25/2020 CL 106 08/25/2020 CO2 24 08/25/2020 BUN 16 08/25/2020 CREATININE 0.89 08/25/2020 GLUCOSE 156 08/25/2020 GLUCOSE 129 12/10/2019 CALCIUM 7.8 08/25/2020 No results found for: LABA1C Additional results of the last 24 hours have been reviewed. Assessment and Plan: Principal Problem: Alcohol withdrawal syndrome with complication (HCC) Active Problems: Essential hypertension Hyperlipidemia Current moderate episode of major depressive disorder without prior episode (HCC) GENNARO (obstructive sleep apnea) Anxiety Class 3 severe obesity in adult (HCC) Chronic hypoxemic respiratory failure (HCC) Diastolic heart failure (HCC) Severe alcohol use disorder (HCC) History of opioid abuse (HCC) Hypokalemia GERD (gastroesophageal reflux disease) COPD (chronic obstructive pulmonary disease) ([facility]) Resolved Problems: Hypomagnesemia Lactic acidosis #Alcohol abuse disorder w/ withdrawal - Last drink 08/23, previously was drinking ~2 bottles of wine per day. EtOH level on admission .071. No Hx of seizures with withdrawal. Denies other drug use, UDS negative. - CIWA protocol, supplement thiamine and folate, phenobarb taper - received ativan 1mg x 2 yesterday and once this morning. Will taper off ativan. - Spoke with ADM this AM, pt likely to be done with detox tomorrow as recent drinking binge only lasted for ~ 1 week. Pt refusing residential treatment for alcohol use disorder #Anxiety/ Depression - Continue home prozac 30mg qd. Prn ativan - Anxiety/ depression likely contributing to alcohol use. Consulted psych in setting of poorly-controlled anxiety with current medications. - Pt reports increased stress at home as she and her spouse have been arguing lately. She States that her kicked her out of the home and she will have nowhere to stay upon eventual discharge.[employer] consulted for dispo planning #Hypokalemia - K+ 2.9, supplementing IV and continue to monitor trended BMP #Lactic acidosis - Lactate 2.3, holding home lasix and reassessing this afternoon. Okay to DC checks when normalized. #Prolonged QT - .491 on EKG yesterday, repeat this AM w/ worsened QT. Discontinued zofran, continue to avoid prolonging meds. #Chronic Diastolic HF - TTE 2019 with EF 75% - Monitor I's and O's, check daily weights. Low sodium diet - Hold lasix given elevated lactate #COPD #Chronic hypoxemic respiratory failure - On 5L O2 at home, follows with [facility] pulmonology. No increased O2 requirements this admission, SuG2SMP on 2L - Continue home dulera, duonebs prn for SOB - Will add IS #CKD II - Cr stable, Avoid nephrotoxic medications and continue to monitor trended BMP #HTN #HLD - Continue lasix 80mg PO qd - Continue home crestor 40mg nightly #GENNARO - Autopap overnight - Pt reports compliance with BiPAP at home. #GERD - Continue pantoprazole 40mg #Morbid Obesity- BMI 41.05 #Hypomagnesemia (resolved) - Mg 1.8. s/p IV supplement. Continue to monitor trended BMP Code Status: DRBraxton-PASCUAL DVTProphylaxis: lovenox 40 q 24hr - creatinine clearance >30 Disposition:await test results, await parts consultant recommendations and await clinical improvement No DC today, continue phenobarb taper. I spent over 51% of total time providing counseling or incoordination of care: > 35 minutes discussed with nurse, patient and family updated, I personally examined the patient and I personally reviewed chart, data, labs radiology reports Discussed with Dr. Basurto, discussed with RN. Spoke with ADM today. 7AM-4PM Please Perfect serve Sarahy Motta PA-C 6PM-6AM please page: [facility] [place] Associated attestation - Lei Basurto MD - 08/25/2020 2:33 PM EDT Attending Supervising Physician's Attestation Statement The patient is a 59 y.o. female. I have performed a history and physical examination of the patient. I discussed the case with the physician guest services assistant. Ms. Hogan seated at side of bed, eating a meal, in no distress. She becomes tearful when discussing her home situation, but she says she feels safe at home with her . The patient denies chest pain and denies shortness of breath. No other complaints. I reviewed the patient's Past Medical History, Past Surgical History, Medications, and Allergies. Physical Exam: Vitals: 08/24/20 2140 08/25/20 0220 08/25/20 0758 08/25/20 1129 BP: 110/65 129/82 124/75 Pulse: 79 91 93 Resp: 16 14 15 15 Temp: 97.6 F (36.4 C) 96.8 F (36 C) 98 F (36.7 C) TempSrc: Temporal Temporal Temporal SpO2: 95% 94% 97% 98% No acute distress, Alert and oriented x3, Normal affect, on nasal cannula O2. Lungs: Clear to auscultation bilaterally, Normal effort PERRL, Normal conjunctiva, Hearing intact No JVD, No thyroid tenderness, neck supple Regular rate and rhythm, No murmurs. No edema. +2 pulses bilaterally Abdomen: +Bowel sounds, soft, nontender, nondistended, no hepatosplenomegaly appreciated Cranial nerves II-XII grossly intact, Equal strength and sensation bilaterally, NIH = 0. Skin warm, No rash Anxious and intermittently tearful Impression/Plan I reviewed and agree with the findings and plan documented in her note . --Alcohol abuse and withdrawal --Anxiety/depression: no suicidal/homicidal ideation. She says she feels safe at home with her . Concern for benzodiazepine seeking behavior per notes. --Hypokalemia: replace --Lactic acidosis: lactic acidosis resolved, but up-trended again. Trend until normalized again, continue to hold home Lasix. Hemodynamics are stable. --Hypocalcemia: replace --Chronic respiratory failure on 5 liters nasal cannula at home. --EKG nonspecific abnormalities: no chest pain/angina/shortness of breath. No significant changes as compared to prior EKG 10/24/2019. --Sinus tachycardia resolved. --history of proteinuria. --prolonged QTc: avoid offending meds as able. Discontinue Zofran. --Pancytopenia: unclear significance given this was not found yesterday. Trend CBC in am. No symptoms of bleeding or infection. --previous discharge summaries reviewed. --I spoke to patient at length regarding code status. DNR-CCA. No intubation/mechanical ventilation/CPR/defibrillation. I spent over 51% of total time providing counseling or in coordination of care: 70 minutes for alcohol abuse discussed with patient and I personally reviewed chart, data, labs radiology reports I spoke to MARKIE Motta today * Eugene Hernandez MD - 08/25/2020 7:32 AM EDT Images from the original note were not included. Addiction Medicine Inpatient Progress Note Patient: Alfie Hogan Chief Complaint Patient presents with Alcohol Problem pt request detox, large bottle of wine a day sometimes 2 a day last drink was midnight Problem List: Principal Problem: Alcohol withdrawal syndrome with complication ([facility]) Active Problems: Essential hypertension Hyperlipidemia Current moderate episode of major depressive disorder without prior episode ([facility]) GENNARO (obstructive sleep apnea) Anxiety Class 3 severe obesity in adult ([facility]) Chronic hypoxemic respiratory failure ([facility]) Diastolic heart failure ([facility]) Severe alcohol use disorder ([facility]) History of opioid abuse ([facility]) Hypokalemia Hypomagnesemia Lactic acidosis GERD (gastroesophageal reflux disease) COPD (chronic obstructive pulmonary disease) ([facility]) Resolved Problems: * No resolved hospital problems. * Subjective Last 4 CIWA scores per RN assessments: - Interim History: Very emotional and tearful this morning. Kept asking for ativan for anxiety. Kept mentioning she can not go back home because her won't allow her. Was complaining of neck pain and headache and thinks tylenol doesn't work. She has hx of opioid abuse previously as well. Review of Systems: Review of Systems Constitutional: Negative for chills, diaphoresis and fatigue. Respiratory: Negative. Cardiovascular: Negative. Gastrointestinal: Negative. Musculoskeletal: Neck pain Neurological: Positive for tremors and headaches. Psychiatric/Behavioral: Negative for agitation, confusion, hallucinations, self- injury and suicidalideas. The patient is nervous/anxious. Objective Physical Exam: Vitals: 08/24/20 1720 08/24/20 1945 08/24/20 2140 08/25/20 0220 BP: 138/78 110/65 Pulse: 110 79 Resp: 16 16 14 Temp: 96.7 F (35.9 C) 97.6 F (36.4 C) TempSrc: Temporal Temporal SpO2: 95% 94% 95% 94% Physical Exam Constitutional: She is oriented to person, place, and time. She is cooperative. She appears distressed. Emotional and tearful. On NC O2. HENT: Head: Normocephalic and atraumatic. Eyes: Pupils are equal, round, and reactive to light. Conjunctivae and EOM are normal. Neck: Normal range of motion. Neck supple. Cardiovascular: Normal rate. Pulmonary/Chest: Effort normal. Abdominal: Soft. Musculoskeletal: Normal range of motion. Neurological: She is alert and oriented to person, place, and time. Skin: Skin is warm and dry. She is not diaphoretic. Psychiatric: Her speech is normal. Her mood appears anxious. Her affect is labile and inappropriate. She is not agitated and not actively hallucinating. Thought content is not paranoid and not delusional. Cognition and memory are normal. She expresses inappropriate judgment. She expresses no homicidal and no suicidal ideation. Nursing note and vitals reviewed. Medications: furosemide 80 mg Oral Daily mometasone-formoterol 2 puff Inhalation BID pantoprazole 40 mg Oral Daily rosuvastatin 40 mg Oral Nightly traZODone 50 mg Oral Nightly sodium chloride flush 10 mL Intravenous 2 times per day enoxaparin 40 mg Subcutaneous Daily thiamine 100 mg Oral Daily multivitamin 1 tablet Oral Daily ipratropium-albuterol 1 ampule Inhalation 4x daily PHENobarbital 97.2 mg Oral Q4H gabapentin 300 mg Oral BID FLUoxetine 30 mg Oral Daily folic acid 1 mg Oral Daily sodium chloride flush, promethazine OR ondansetron, polyethylene glycol, sodium chloride flush,LORazepam, acetaminophen OR [DISCONTINUED] acetaminophen Recent Imaging: No results found. Labs: Last 24 hours: Recent Results (from the past 24 hour(s)) Add On Lab Test Collection Time: 08/24/20 8:37 AM Result Value Ref Range Add On Accepted NA Urine Drug Screen Collection Time: 08/24/20 1:15 PM Result Value Ref Range Amphetamines, urine Negative NA Barbiturates, Ur Positive NA Benzodiazepine Ur Qual Negative NA Cocaine Metabolites, Ur Negative NA Methadone, Urine Negative NA Opiates, Urine Negative NA Oxycodone Screen, Ur Negative NA PCP, Urine Negative NA Lactic Acid, Plasma Collection Time: 08/24/20 1:15 PM Result Value Ref Range Lactic Acid 1.3 0.7 - 2.0 mmol/L Lactic Acid, Plasma Collection Time: 08/25/20 12:04 AM Result Value Ref Range Lactic Acid 1.1 0.7 - 2.0 mmol/L Basic Metabolic Panel w/ Reflex to MG Collection Time: 08/25/20 12:10 AM Result Value Ref Range Sodium 137 135 - 145 mmol/L Potassium 2.9 (L) 3.5 - 5.1 mmol/L Chloride 106 98 - 107 mmol/L CO2 24 22 - 30 mmol/L Anion Gap 7 3 - 13 mmol/L Glucose 156 (H) 70 - 100 mg/dL BUN 16 7 - 20 mg/dL CREATININE 0.89 0.52 - 1.25 mg/dL eGFR 82.4 >60 mL/min EGFR IF NonAfrican Maltese 71.1 >60 mL/min Calcium 7.8 (L) 8.4 - 10.4 mg/dL Magnesium Collection Time: 08/25/20 12:10 AM Result Value Ref Range Magnesium 1.8 1.6 - 2.3 mg/dL CBC Collection Time: 08/25/20 3:49 AM Result Value Ref Range WBC 3.2 (L) 3.6 - 10.7 10*3/uL RBC 3.70 (L) 3.80 - 5.20 10*6/uL Hemoglobin 11.1 (L) 11.7 - 16.0 g/dL Hematocrit 33.2 (L) 35.0 - 47.0 % MCV 89.7 79.0 - 98.0 fL MCH 29.9 26.0 - 34.0 pg MCHC 33.4 32.0 - 36.0 % RDW 13.8 11.5 - 14.5 % Platelets 104 (L) 140 - 440 10*3/uL MPV 8.0 7.4 - 10.4 fL Lab trends: CBC: Recent Labs 08/24/20 0540 08/25/20 0349 WBC 7.7 3.2* HGB 13.9 11.1* PLT 174 104* MCV 88.0 89.7 RDW 14.1 13.8 BMP: Recent Labs 08/24/20 0540 08/25/20 0010 NA 140 137 K 3.4* 2.9* CL 100 106 CO2 25 24 BUN 15 16 CREATININE 1.00 0.89 CALCIUM 9.4 7.8* MG 1.4* 1.8 PHOS 2.9 -- Liver Profile: Recent Labs 08/24/20 0540 AST 35 ALT 28 BILITOT 0.9 ALKPHOS 106 LABALBU 4.9 PROT 7.5 Glucose: Recent Labs 08/24/20 0540 08/25/20 0010 GLUCOSE 164* 156* Lactic Acid: Recent Labs 08/24/20 0540 08/24/20 1315 08/25/20 0004 LACTA 3.2* 1.3 1.1 Cardiac Injury Profile: No results for input(s): CKTOTAL, CKMB, TROPONINI in the last 72 hours. 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 Anxiety/depression/insomina Chronic pain Chronic hypoxic respiratory failure on 5L O2 at home GENNARO on BIPAP Hx of opioid abuse Med-seeking behavior The last use of alcohol was on 08/23. Plan Phenobarbital taper to manage withdrawal symptoms: 65mg po q 4 hours for today. Thiamine and folic acid. PRN medications for withdrawal symptom management added. CIWA scores per unit protocol. She is showing some med-seeking behavior and kept asking for ativan. She has hx of Benzo use previously and was detoxed from benzo at detox unit in July. Recovery plan: she is in difficult relatoinship with her related to her alcohol use. She kept mentioning that her will probably leave her and she can not go back home after this admission but she claimed the same during last admission at detox unit but she went back living with her . I offered her residential for inpatient treatment since she can not go back home but she was not interested. Remaining medical management per primary team. Will follow. Eugene Kovacs MD Addiction Medicine 08/25/2020 at 7:32 AM Associated attestation - Thierry Johns MD - 08/25/2020 12:53 PM EDT I saw this patient independently of the fellow this encounter and we spent over 51% total time 25 minutes counseling or coordinating care regarding patient's chemical dependency status. I discussed the case with the fellow and agree with the findings and plan as documented in the fellow's note. We recommend she attends inpatient alcohol/drug rehab at this point. The facility in [place], [facility], would be ideal for her. However, she is minimally motivated to do this and in general continues to have unrealistic expectations for recovery. Remains somewhat histrionic and focused only on her kicking her out of the house. Also med seeking in regards to benzos in my opinion. Our service will not be prescribing her any psychotropic medications or ativan while she is here. She is going to [facility] after discharge for behavioral health care. Thierry Johns MD 08/25/20 12:46 PM documented in this encounter Assessments Diagnosis COPD exacerbation (HCC) Obstructive chronic bronchitis with exacerbation Tachycardia Tachycardia, unspecified COVID-19 with pulmonary comorbidity Anxiety and depression Dysthymic disorder Diagnosis Alcohol withdrawal syndrome with complication (HCC)- Primary Class 3 severe obesity in adult (HCC) Severe alcohol use disorder (HCC) Essential hypertension Unspecified essential hypertension Hyperlipidemia Other and unspecified hyperlipidemia Current moderate episode of major depressive disorder without prior episode (HCC) GENNARO (obstructive sleep apnea) Obstructive sleep apnea (adult) (pediatric) Hypokalemia Hypopotassemia Hypomagnesemia Disorders of magnesium metabolism Chronic hypoxemic respiratory failure (HCC) Chronic respiratory failure Diastolic heart failure (HCC) Unspecified diastolic heart failure Anxiety Anxiety state, unspecified Lactic acidosis Acidosis GERD (gastroesophageal reflux disease) Esophageal reflux COPD (chronic obstructive pulmonary disease) (HCC) Chronic airway obstruction, not elsewhere classified History of opioid abuse (HCC) Opioid abuse, in remission Hospital Course Note Attestation signed by Lei Basurto MD at 08/26/2020 10:02 PM (Updated) Attending Supervising Physician's Attestation Statement --Alcohol abuse and withdrawal --Anxiety/depression: no suicidal/homicidal ideation. She says she feels safe at home with her . Concern for benzodiazepine seeking behavior per notes. She will follow with psychiatry outpatient. --Hypokalemia, hypomagnesemia: both borderline low, replaced on day of discharge. Continue home K supplement, start mag supplement --Lactic acidosis: labile but resolved prior to discharge. --Chronic respiratory failure on 5 liters nasal cannula at home. Stable on 5 liters. No shortness of breath. --EKG nonspecific abnormalities: no chest pain/angina/shortness of breath. No significant changes as compared to prior EKG 10/24/2019. --Sinus tachycardia resolved. --history of proteinuria. --Pancytopenia: unclear significance, follow CBC outpatient in 1 wee (more content not included)... Chief Complaint and Reason for Visit Chief Complaint FALL WITH ANKLE FRAC TURE FALL WITH ANKLE FRACTURE FALL WITH ANKLE FRACTURE FALL WITH ANKLE FRACTURE FALL WITH ANKLE FRACTURE FALL WITH ANKLE FRACTURE FALL WITH ANKLE FRACTURE RT ANKLE PAIN & SWELLING lower extremity right foot pain Reason for Visit Bimalleolar fracture of right ankle Closed fracture of fourth toe of left foot [id number] Fracture of toe of left foot Chief Complaint right foot pain HYPOTENSION, PEDRO, ENCEPHALOPATHY PYURIA HYPOTENSION, PEDRO, ENCEPHALOPATHY, ? UTI HYPOTENSION, PEDRO, ENCEPHALOPATHY, ? UTI HYPOTENSION, PEDRO, ENCEPHALOPATHY, ? UTI Reason for Visit Acute hypotension PEDRO (acute kidney injury) Encephalopathy Neutropenia Pyuria Chief Complaint HYPOTENSION, PEDRO, EN CEPHALOPATHY PYURIA HYPOTENSION, PEDRO, ENCEPHALOPATHY, ? UTI HYPOTENSION, PEDRO, ENCEPHALOPATHY, ? UTI HYPOTENSION, PEDRO, ENCEPHALOPATHY, ? UTI CONFUSION Reason for Visit Neutropenia Acute hypotension PEDRO (acute kidney injury) Encephalopathy Chief Complaint CONFUSION LEFT LEG PAIN/RIGHT RIB PAIN/POST FALL XRAY left fibula LEFT BREAT LUMP Reason for Visit Closed fracture of f ibula, proximal, left Contusion of left hip Contusion of left shoulder Contusion of rib on right side Contusion of scalp Fracture of neck of fibula Chief Complaint LEFT LEG PAIN/RIGHT RIB PAIN/POST FALL XRAY left fibula LEFT BREAT LUMP ETOH WITHDRAWAL ETOH WITHDRAWAL Reason for Visit Closed fracture of f ibula, proximal, left Contusion of left hip Contusion of left shoulder Contusion of rib on right side Contusion of scalp Fracture of neck of fibula Alcohol withdrawal Viral syndrome COPD exacerbation Chief Complaint UPSET STOMACH, VOMIT ING SOB Reason for Visit Nausea and vomiting Chronic renal insufficiency, stage I Essential (primary) hypertension Chief Complaint UPSET STOMACH, VOMIT ING SOB ATAXIA / WEAKNESS LOWER EXTREMITIES / RX HERE Re-establish RESPIRATORY FAILURE RESPIRATORY FAILURE RESPIRATYORY FAILURE RESPIRATYORY FAILURE GENNARO Reason for Visit Nausea and vomiting Chronic renal insufficiency, stage I Essential (primary) hypertension GENNARO (obstructive sleep apnea) Respiratory failure Chief Complaint UPSET STOMACH, VOMIT ING SOB ATAXIA / WEAKNESS LOWER EXTREMITIES / RX HERE Re-establish RESPIRATORY FAILURE RESPIRATORY FAILURE RESPIRATYORY FAILURE RESPIRATYORY FAILURE GENNARO GENNARO, AUTO BIPAPS AC10 W/OXY *DEVICE TAGGED Reason for Visit Nausea and vomiting Chronic renal insufficiency, stage I Essential (primary) hypertension GENNARO (obstructive sleep apnea) Respiratory failure Chief Complaint ATAXIA / WEAKNESS LO WER EXTREMITIES / RX HERE Re-establish RESPIRATORY FAILURE RESPIRATORY FAILURE RESPIRATYORY FAILURE RESPIRATYORY FAILURE GENNARO GENNARO, AUTO BIPAPS AC10 W/OXY *DEVICE TAGGED NEED ORDER Reason for Visit GENNARO (obstructive sle ep apnea) Respiratory failure Chief Complaint RESPIRATYORY FAILURE GENNARO GENNARO, AUTO BIPAPS AC10 W/OXY *DEVICE TAGGED NEED ORDER 3 M FU CONSTIPATION Reason for Visit Insomnia Oral thrush GENNARO (obstructive sleep apnea) Respiratory failure with hypoxia Restrictive lung disease Chief Complaint GENNARO, AUTO BIPAPS AC1 0 W/OXY *DEVICE TAGGED NEED ORDER 3 M FU CONSTIPATION back pain Reason for Visit Insomnia Oral thrush GENNARO (obstructive sleep apnea) Respiratory failure with hypoxia Restrictive lung disease Chief Complaint Admit Date SOB July 13, 2024 2 :15pm AE ASTHMA, LONG COVID, DIARRHEA AND OHS July 15, 2024 9:42pm AE ASTHMA, LONG COVID, DIARRHEA AND OHS July 16, 2024 9:50am AE ASTHMA, LONG COVID, DIARRHEA AND OHS July 17, 2024 12:16pm MIGRAINE, HYPERGLYCEMIA August 09, 2024 8:32pm Reason for Visit Admit Date Asthma exacerbation July 15, 2024 9:42pm BMI 40.0-44.9, adult July 15, 2024 9:42pm COVID-19 long hauler July 15, 2024 9:42pm Obesity hypoventilation syndrome Februar y 2024 9:42pm GENNARO treated with BiPAP July 15 9:42pm Respiratory insufficiency July 15, 2024 9:42pm Acute hyperglycemia August 09, 2024 8:32 pm Headache August 09, 2024 8:32 pm Chief Complaint Admit Date SOB July 13, 2024 2 :15pm AE ASTHMA, LONG COVID, DIARRHEA AND OHS July 15, 2024 9:42pm AE ASTHMA, LONG COVID, DIARRHEA AND OHS July 16, 2024 9:50am AE ASTHMA, LONG COVID, DIARRHEA AND OHS July 17, 2024 12:16pm MIGRAINE, HYPERGLYCEMIA August 09, 2024 8:32pm MIGRAINE, HYPERGLYCEMIA August 10, 2024 7:35am MIGRAINE, HYPERGLYCEMIA August 11, 2024 8:03am MIGRAINE, HYPERGLYCEMIA August 11, 2024 4:52pm MIGRAINE, HYPERGLYCEMIA August 12, 2024 2:50pm MIGRAINE, HYPERGLYCEMIA August 13, 2024 3:42pm Reason for Visit Admit Date Asthma exacerbation July 15, 2024 9:42pm BMI 40.0-44.9, adult July 15, 2024 9:42pm COVID-19 long hauler July 15, 2024 9:42pm Obesity hypoventilation syndrome Februar 2024 9:42pm GENNARO treated with BiPAP July 15 9:42pm Respiratory insufficiency July 15, 2024 9:42pm Acute hyperglycemia August 11, 2024 4:5 2pm Headache August 11, 2024 4:5 2pm Chief Complaint Admit Date SOB July 13, 2024 2 :15pm AE ASTHMA, LONG COVID, DIARRHEA AND OHS July 15, 2024 9:42pm AE ASTHMA, LONG COVID, DIARRHEA AND OHS July 16, 2024 9:50am AE ASTHMA, LONG COVID, DIARRHEA AND OHS July 17, 2024 12:16pm MIGRAINE, HYPERGLYCEMIA August 09, 2024 8:32pm MIGRAINE, HYPERGLYCEMIA August 10, 2024 7:35am MIGRAINE, HYPERGLYCEMIA August 11, 2024 8:03am MIGRAINE, HYPERGLYCEMIA August 11, 2024 4:52pm MIGRAINE, HYPERGLYCEMIA August 12, 2024 2:50pm MIGRAINE, HYPERGLYCEMIA August 13, 2024 3:42pm headache September 30, 2024 5:1 9pm 300MG VENOFER October 14, 2024 11:42 am Chief Complaint Admit Date SOB July 13, 2024 2 :15pm AE ASTHMA, LONG COVID, DIARRHEA AND OHS July 15, 2024 9:42pm AE ASTHMA, LONG COVID, DIARRHEA AND OHS July 16, 2024 9:50am AE ASTHMA, LONG COVID, DIARRHEA AND OHS July 17, 2024 12:16pm MIGRAINE, HYPERGLYCEMIA August 09, 2024 8:32pm MIGRAINE, HYPERGLYCEMIA August 10, 2024 7:35am MIGRAINE, HYPERGLYCEMIA August 11, 2024 8:03am MIGRAINE, HYPERGLYCEMIA August 11, 2024 4:52pm MIGRAINE, HYPERGLYCEMIA August 12, 2024 2:50pm MIGRAINE, HYPERGLYCEMIA August 13, 2024 3:42pm headache September 30, 2024 5:1 9pm 300MG VENOFER October 14, 2024 11:42 am 300MG VENOFER October 21, 2024 11:44 am Chief Complaint Admit Date SOB July 13, 2024 2 :15pm AE ASTHMA, LONG COVID, DIARRHEA AND OHS July 15, 2024 9:42pm AE ASTHMA, LONG COVID, DIARRHEA AND OHS July 16, 2024 9:50am AE ASTHMA, LONG COVID, DIARRHEA AND OHS July 17, 2024 12:16pm MIGRAINE, HYPERGLYCEMIA August 09, 2024 8:32pm MIGRAINE, HYPERGLYCEMIA August 10, 2024 7:35am MIGRAINE, HYPERGLYCEMIA August 11, 2024 8:03am MIGRAINE, HYPERGLYCEMIA August 11, 2024 4:52pm MIGRAINE, HYPERGLYCEMIA August 12, 2024 2:50pm MIGRAINE, HYPERGLYCEMIA August 13, 2024 3:42pm headache September 30, 2024 5:1 9pm 300MG VENOFER October 14, 2024 11:42 am 300MG VENOFER October 21, 2024 11:44 am FALL November 07, 2024 4:19p m PEDRO, HYPOKALEMIA November 07, 2024 4:45p m Reason for Visit Admit Date Asthma exacerbation July 15, 2024 9:42pm BMI 40.0-44.9, adult July 15, 2024 9:42pm COVID-19 long hauler July 15, 2024 9:42pm Obesity hypoventilation syndrome Februar y 2024 9:42pm GENNARO treated with BiPAP July 15 9:42pm Respiratory insufficiency July 15, 2024 9:42pm Acute hyperglycemia August 11, 2024 4:5 2pm Headache August 11, 2024 4:5 2pm PEDRO (acute kidney injury) November 07, 2024 4:45pm Chronic prescription benzodiazepine use November 07, 2024 4:45pm Debility November 07, 2024 4:45p m Elevated troponin November 07, 2024 4:45p m Generalized weakness November 07, 2024 4:45 pm Hypokalemia November 07, 2024 4:45p m Chief Complaint Admit Date SOB February 9th, 2025 2 :15pm AE ASTHMA, LONG COVID, DIARRHEA AND OHS July 15, 2024 9:42pm AE ASTHMA, LONG COVID, DIARRHEA AND OHS July 16, 2024 9:50am AE ASTHMA, LONG COVID, DIARRHEA AND OHS July 17, 2024 12:16pm MIGRAINE, HYPERGLYCEMIA August 09, 2024 8:32pm MIGRAINE, HYPERGLYCEMIA August 10, 2024 7:35am MIGRAINE, HYPERGLYCEMIA August 11, 2024 8:03am MIGRAINE, HYPERGLYCEMIA August 11, 2024 4:52pm MIGRAINE, HYPERGLYCEMIA August 12, 2024 2:50pm MIGRAINE, HYPERGLYCEMIA August 13, 2024 3:42pm headache September 30, 2024 5:1 9pm 300MG VENOFER October 14, 2024 11:42 am 300MG VENOFER October 21, 2024 11:44 am FALL November 07, 2024 4:19p m PEDRO, HYPOKALEMIA November 07, 2024 4:45p m PEDRO, HYPOKALEMIA November 08, 2024 9:24a m PEDRO, HYPOKALEMIA November 09, 2024 9:08a m PEDRO, HYPOKALEMIA November 10, 2024 1:48p m Reason for Visit Admit Date Asthma exacerbation July 15, 2024 9:42pm BMI 40.0-44.9, adult July 15, 2024 9:42pm COVID-19 long hauler July 15, 2024 9:42pm Obesity hypoventilation syndrome [id number] 9:42pm GENNARO treated with BiPAP July 15 9:42pm Respiratory insufficiency July 15, 2024 9:42pm Acute hyperglycemia August 11, 2024 4:5 2pm Headache August 11, 2024 4:5 2pm PEDRO (acute kidney injury) November 07, 2024 4:45pm Chronic prescription benzodiazepine use November 07, 2024 4:45pm Debility November 07, 2024 4:45p m Elevated troponin November 07, 2024 4:45p m Encephalopathy November 07, 2024 4:45p m Generalized weakness November 07, 2024 4:45 pm Hypokalemia November 07, 2024 4:45p m Reason for Referral Specialty Diagnoses / Procedures Referred By Contac t Referred To Contact Physical Therapy Diagnoses Ataxia Weakness of both lower extremities Procedures [place] OFFICE/OUTPATIENT [facility] 60-74 MINUTES Bernardino Moran MD [address] [facility], [place] [address] Referral ID Status Reason Start Date Expiration Date Visits Requested Visits Authorized [id number] Pending Review Eval and Treat 02/15/2023 08/14/2023 99 99 Scheduling Instructions [facility] Specialty Diagnoses / Procedures Referred By Contac t Referred To Contact Pain Management Diagnoses Radiculopathy of lumbar region Procedures CONSULT TO PAIN MGT Annika Collado MD, PhD [address] [facility] [address] Referral ID Status Reason Start Date Expiration Date Visits Requested Visits Authorized [id number] Ref Not Required PCP Requested Referral 07/05/2023 07/04/2024 1 1 Specialty Diagnoses / Procedures Referred By Contac t Referred To Contact CT IMAGING Diagnoses Radiculopathy of lumbar region Procedures CT LUMBAR SPINE [facility] CT LUMBAR SPINE W/O CONTRAST MATERIAL Annika Collado MD, PhD [address] [facility] [place] [address] [place] [address] Referral ID Status Reason Start Date Expiration Date Visits Requested Visits Authorized [id number] Authorized Auto-Generat ed Referral 07/05/2023 08/03/2024 1 1 Specialty Diagnoses / Procedures Referred By Contac t Referred To Contact XR IMAGING Diagnoses Radiculopathy of lumbar region Procedures XR LUMBAR MOTION 4V AP/LAT/ FLEX/EXT RADEX SPINE LUMBOSACRAL MINIMUM 4 VIEWS Annika Collado MD, PhD [address] [facility] [place] [address] [place] [address] Referral ID Status Reason Start Date Expiration Date Visits Requested Visits Authorized [id number] Authorized Auto-Generat ed Referral 07/05/2023 08/03/2024 1 1 Specialty Diagnoses / Procedures Referred By Contac t Referred To Contact Terri Garcia, GEAR SETTER [employer] [address] [place] [address] Referral ID Status Reason Start Date Expiration Date Visits Re quested Visits Authorized [id number] Closed 1 1 Additional Source Comments INFORMATION SOURCE (unrecogn ized section and content) DATE CREATED AUTHOR 05/12/2018 [facility] DATE CREATED AUTHOR AUTHOR'S ORGANIZ ATION 11/09/2019 [facility] DATE CREATED AUTHOR AUTHOR'S ORGANIZ ATION 12/26/2019 [facility] ([place] DATE CREATED AUTHOR AUTHOR'S ORGANIZ ATION 08/22/2020 [facility] DATE CREATED AUTHOR AUTHOR'S ORGANIZ ATION 08/26/2020 [facility] DATE CREATED AUTHOR AUTHOR'S ORGANIZ ATION 09/10/2020 [facility] DATE CREATED AUTHOR AUTHOR'S ORGANIZ ATION 05/11/2021 [facility] DATE CREATED AUTHOR AUTHOR'S ORGANIZ ATION 07/09/2023 [facility] DATE CREATED AUTHOR AUTHOR'S ORGANIZ ATION 11/17/2023 [facility] DATE CREATED AUTHOR AUTHOR'S ORGANIZ ATION 10/18/2024 [facility] DATE CREATED AUTHOR AUTHOR'S ORGANIZ ATION 04/13/2025 [facility] Reason for Visit (unrecogniz ed section and content) Reason Comments Shortness of Breath +Covid 10/29/19 Reason Comments Alcohol Problem pt request detox, la rge bottle of wine a day sometimes 2 a day last drink was midnight Reason Onset Date Comments Medication Question 08/15/2022 Reason Comments Anxiety Depression Hypertension Hyperlipidemia GERD Medication Check Other Pt gives consent for virtual visit and understands visit will be billed to insurance Reason Onset Date Comments Med Refill 09/22/2022 Reason Comments Med Refill Reason Comments Abnl Movement TD - concerned that caused by some meds she is on stopping meds Wanting to come off of some of the meds Breathing Problem Wears oxygen 25/12 Falls, Balance Still continue to weber ve problems Reason Onset Date Comments Med Refill 02/18/2023 Reason Onset Date Comments Med Refill 03/09/2023 Reason Onset Date Comments Nausea 03/09/2023 Reason Comments Low Back Pain Reason Comments FAST TACK Specialty Diagnoses / Procedures Referred By Dwayne t Referred To Contact Diagnoses Scoliosis, unspecified Spinal stenosis, lumbar region without neurogenic claudication Scoliosis, unspecified [M41.9] Spinal stenosis, lumbar region without neurogenic claudication [M48.061] Procedures [place] REMOVAL POSTERIOR SEGMENTAL INSTRUMENTATION [place] FACETECTOMY & FORAMOTOMY 1 VRT SGM LUMBAR [place] ARTHRODESIS POSTERIOR/PSTLAT TQ 1NTRSPC THORACIC [place] ARTHRODESIS PST/PSTLAT TQ 1NTRSPC EA ADDL NTRSPC [place] POSTERIOR SEGMENTAL INSTRUMENTATION 3-6 VRT SEG [place] ALLOGRAFT FOR SPINE SURGERY ONLY MORSELIZED REMOVAL HARDWARE LUMBAR 3/4/5, LAMINECTOMY LUMBAR 2, FUSION THORACIC 11-LUMBAR 3, INSTRUMENTATION THORACIC 11-LUMBAR 5, ALLOGRAFT, BONE MORPHOGENETIC PROTEIN Brandon Bean MD [address] [facility] [address] [address] [facility] [place] [address] [place] [address] Referral ID Status Reason Start Date Expiration Date Visits Re quested Visits Authorized [id number] 1 1 Reason Comments Med Refill Reason Comments Medicare Annual Wellness Visit Subsequen t Pt asking for potassium to be changed from a liquid to a pill Blood Work Health Maintenance Pt refused- hep c/hi v screen, mammogram order, covd 3 vaccinePt agreed to - flu vaccine and shingles script Black or Bloody Stool Insomnia Only getting about 4 hrs of sleep at the most per night Pt asking for temazepam to help her sleep due to Trazadone not helping UTI Reason Onset Date Comments Med Refill 07/04/2022 Reason Onset Date Comments Med Refill 08/18/2022 Reason Comments Covid19 Concern Reason Comments New Patient Reason Comments Results Reason Onset Date Comments page out 08/18/2023 Surgical History (unrecogniz ed section and content) Surgery Date Site/Laterality Comments HYSTERECTOMY, TOTAL ABDOMINAL 06/04/2001 - 06/03/2002 CHOLECYSTECTOMY 06/04/2003 - 06/03/2004 TONSILLECTOMY 06/04/1965 - 06/03/1966 HERNIA REPAIR 06/04/1971 - 06/03/1972 APPENDECTOMY 06/04/2002 - 06/03/2003 BACK SURGERY JOINT REPLACEMENT Bilateral hips TENDON RELEASE Right Right arm Medical History (unrecognize d section and content) Medical History Date Comments Hypertension Kidney stone Kidney disease Anxiety Depression Kidney failure 01/09/2019 Pulmonary hypertension (HCC) Diastolic heart failure (HCC) Bronchiectasis (HCC) Oxygen decrease Currently on Christophe e oxygen, uses with exertion Ordered Prescriptions (unrec ognized section and content) Prescription Sig Dispensed Refills Start Date End Da te thiamine mononitrate 100 MG tablet Take 1 tablet by mouth daily 30 tablet 0 08/27/2020 magnesium oxide (MAG-OX) 400 (241.3 Mg) MG TABS tablet Take 1 tablet by mouth daily 30 tablet 0 08/27/2020 folic acid (FOLVITE) 1 MG tablet Take 1 tablet by mouth daily 30 tablet 3 08/27/2020 traZODone (DESYREL) 100 MG tablet Take 1 tablet by mouth nightly 30 tablet 0 08/26/2020 Goals (unrecognized section and content) Goals may be documented in a n alternate sectionGoals may be documented in an alternate sectionGoals may be documented in an alternate sectionGoals may be documented in an alternate sectionGoals may be documented in an alternate sectionGoals may be documented in an alternate sectionGoals may be documented in an alternate sectionGoals may be documented in an alternate sectionGoals may be documented in an alternate section Care Teams (unrecognized sec tion and content) Team Status: Active Member Role Status Dates Dr. Bernardino Moran MD Family Provider Active Dr. Bernardino Moran MD Primary Care Provider Active Team Status: Inactive Member Role Status Dates Dr. Bernardino Moran MD Primary Care Provider, Referri ng Provider Active Elizabeth ADEN PA Attending Provider Active Team Status: Inactive Member Role Status Dates Dr. Bernardino Moran MD Primary Care Provider Active Elizabeth ADEN PA Attending Provider Active Team Status: Inactive Member Role Status Dates Dr. Bernardino Moran MD Primary Care Provider, Referri ng Provider Active Dr. Mau Poe DO Attending Provider Active Team Status: Inactive Member Role Status Dates Dr. Bernardino Moran MD Primary Care Provider Active Dr. Jackson Gordillo DO Attending Provider, Emergency Provider Active Team Status: Inactive Member Role Status Dates Dr. Bernardino Moran MD Primary Care Provider Active Terri Garcia FACULTY HEAD, FACULTY HEAD-C Attending Provider, Referring Pro vider Active Team Status: Active Member Role Status Dates Dr. Bernardino Moran MD Primary Care Provider Active Dr. Mohsen Melgar DO Emergency Provider Active Dr. Mckenzie Austin MD Admit Provider, Attending Provider, Other Provider Active Team Status: Active Member Role Status Dates Dr. Bernardino Moran MD Primary Care Provider Active Dr. Mohsen Melgar DO Emergency Provider Active Dr. Mckenzie Austin MD Admit Provider, Attending Prov ider Active Nondestructive Tester Relationship Specialty Start Date [place] [address] PCP - General 10/31/17 Nondestructive Tester Relationship Specialty Start Date [place] [address] PCP - General 10/31/17 Nondestructive Tester Relationship Specialty Start Date [place] [address] PCP - General 10/31/17 Nondestructive Tester Relationship Specialty Start Date End Date Bernardino Moran MD [address] [place] [id number] PCP - General 10/31/17 Nondestructive Tester Relationship Specialty Start Date End Date Bernardino Moran MD [address] [place] [id number] PCP - General 10/31/17 Team Status: Inactive Member Role Status Dates Dr. Bernardino Moran MD Primary Care Provider, Referri ng Provider Active Grayson ADEN, PA Attending Provider Active Team Status: Inactive Member Role Status Dates Dr. Bernardino Moran MD Primary Care Provider Active Dr. Junior Salter MD Emergency Provider Active Nondestructive Tester Relationship Specialty Start Date [place] [address] PCP - General 10/31/17 Nondestructive Tester Relationship Specialty Start Date End Date Bernardino Moran MD [address] [place] [address] [phone] PCP - General 10/31/17 Nondestructive Tester Relationship Specialty Start Date End Date Bernardino Moran MD [address] [place] [address] [phone] PCP - General 10/31/17 Nondestructive Tester Relationship Specialty Start Date End Date Bernardino Moran MD [address] [place] [address] [phone] PCP - General 10/31/17 Team Status: Inactive Member Role Status Dates Dr. Bernardino Moran MD Primary Care Provider, Referri ng Provider Active Dr. Sam Padron MD Attending Provider Active Team Status: Active Member Role Status Dates Dr. Bernardino Moran MD Primary Care Provider Active Dr. Sam Padron MD Referring Provider, Other Provid er Active Dr. Pablo Maurer DO Attending Provider Active Team Status: Active Member Role Status Dates Dr. Bernardino Moran MD Primary Care Provider, Attendi ng Provider Active Team Status: Inactive Member Role Status Dates Dr. Bernardino Moran MD Primary Care Provider Active Dr. Sam Padron MD Attending Provider, Referring Pr ovider Active Team Status: Inactive Member Role Status Dates Dr. Bernardino Moran MD Primary Care Provider Active Dr. Junior Salter MD Attending Provider, Emergency Provi jun Active Team Status: Inactive Member Role Status Dates Dr. Bernardino Moran MD Primary Care Provider Active Patricia Vallejo FACULTY HEAD, FACULTY HEAD-C Attending Provider Active Nondestructive Tester Relationship Specialty Start Date End Date Bernardino Moran MD [address] [place] [address] [phone] PCP - General 10/31/17 Team Status: Inactive Member Role Status Dates Dr. Bernardino Moran MD Primary Care Provider Active Corin Mariscal MD Attending Provider, Referring Provide r Active Nondestructive Tester Relationship Specialty Start Date End Date Bernardino Moran [address] [facility] [place] [address] PCP - General Family Medicine 03/13/18 Nondestructive Tester Relationship Specialty Start Date End Date Bernardino Moran [address] [facility] [place] [address] PCP - General Family Medicine 03/13/18 Team Status: Inactive Member Role Status Dates Dr. Bernardino Moran MD Primary Care Provider, Referri ng Provider Active Patricia Vallejo FACULTY HEAD, FACULTY HEAD-C Attending Provider Active Team Status: Inactive Member Role Status Dates Dr. Bernardino Moran MD Primary Care Provider Active Dr. Eliazar Chavarria MD Attending Provider, Emergency Provider Active Nondestructive Tester Relationship Specialty Start Date End Date Bernardino Moran MD [address] [place] [address] PCP - General 10/31/17 Nondestructive Tester Relationship Specialty Start Date End Date Bernardino Moran MD [address] [place] [address] PCP - General 10/31/17 08/13/23 Team Status: Active Member Role Status Dates Dr. Bernardino Moran MD Family Provider Active Corin Mariscal MD Primary Care Provider Active Team Status: Active Member Role Status Dates Dr. Bernardino Moran MD Primary Care Provider Active Killian KWOK MD Attending Provider Active Team Status: Inactive Member Role Status Dates Dr. Jackson Gordillo DO Emergency Provider Active Corin Mariscal MD Primary Care Provider Active Nondestructive Tester Relationship Specialty Start Date End Date Bernardino Moran MD [address] [place] [address] PCP - General 10/31/17 Nondestructive Tester Relationship Specialty Start Date End Date Bernardino Moran MD [address] [place] [id number] PCP - General 10/31/17 Nondestructive Tester Relationship Specialty Start Date End Date Bernardino Moran MD [address] [place] [id number] PCP - General 10/31/17 Nondestructive Tester Relationship Specialty Start Date End Date Bernardino Moran [address] [place] [id number] PCP - General Family Medicine 03/13/18 Team Status: Active Member Role Status Aimee Mariscal MD Primary Care Provider Active Team Status: Inactive Member Role Status Aimee Mariscal MD Primary Care Provider Active St art: July 13, 2024 End: July 13, 2024 Dr. Kendall Dsouza MD Attending Provider Active S tart: July 13, 2024 End: July 13, 2024 Dr. Kendall Dsouza MD Emergency Provider Active S tart: July 13, 2024 End: July 13, 2024 Team Status: Inactive Member Role Status Aimee Mariscal MD Primary Care Provider Active St art: July 15, 2024 End: July 17, 2024 Dr. Junior Salter MD Emergency Provider Active Sta rt: July 15, 2024 End: July 17, 2024 Dr. Beck Ervin DO Admit Provider Active Start: July 15, 2024 End: July 17, 2024 Dr. Beck Ervin DO Other Provider Active Start: July 15, 2024 End: July 17, 2024 Dr. Thong Sultana MD Attending Provider Active Start: July 15, 2024 End: July 17, 2024 Dr. Thong Sultana MD Other Provider Active Start: July 15, 2024 Team Status: Active Member Role Status Aimee Mariscal MD Primary Care Provider Active St art: July 16, 2024 Dr. Junior Salter MD Emergency Provider Active Sta rt: July 16, 2024 Dr. Beck Ervin DO Admit Provider Active Start: July 16, 2024 Dr. Beck Ervin DO Other Provider Active Start: July 16, 2024 Dr. Thong Sultana MD Attending Provider Active Start: July 16, 2024 Dr. Thong Sultana MD Other Provider Active Start: July 16, 2024 Team Status: Active Member Role Status Aimee Mariscal MD Primary Care Provider Active St art: July 17, 2024 Dr. Junior Salter MD Emergency Provider Active Sta rt: July 17, 2024 Dr. Beck Ervin DO Admit Provider Active Start: July 17, 2024 Dr. Beck Ervin DO Other Provider Active Start: July 17, 2024 Dr. Thong Sultana MD Attending Provider Active Start: July 17, 2024 Dr. Thong Sultana MD Other Provider Active Start: July 17, 2024 Team Status: Inactive Member Role Status Aimee Mariscal MD Primary Care Provider Active St art: July 24, 2024 End: July 24, 2024 Corin Mariscal MD Attending Provider Active Start : July 24, 2024 End: July 24, 2024 Corin Mariscal MD Referring Provider Active Start : July 24, 2024 End: July 24, 2024 Team Status: Active Member Role Status Aimee Mariscal MD Primary Care Provider Active St art: August 09, 2024 Dr. Torey Mercedes DO Emergency Provider Active S tart: August 09, 2024 Dr. Mckenzie Austin MD Admit Provider Active St art: August 09, 2024 Dr. Mckenzie Austin MD Attending Provider Active Start: August 09, 2024 Dr. Mckenzie Austin MD Referring Provider Active Start: August 09, 2024 Team Status: Active Member Role Status Aimee Mariscal MD Primary Care Provider Active St art: August 09, 2024 Dr. Torey Mercedes DO Emergency Provider Active S tart: August 09, 2024 Dr. Mckenzie Austin MD Admit Provider Active St art: August 09, 2024 Dr. Mckenzie Austin MD Attending Provider Active Start: August 09, 2024 Dr. Mckenzie Austin MD Other Provider Active St art: August 09, 2024 Team Status: Active Member Role Status Dates Corin Mariscal MD Primary Care Provider Active St art: August 10, 2024 Dr. Torey Mercedes , DO Emergency Provider Active S tart: August 10, 2024 Dr. Mckenzie Austin MD Admit Provider Active St art: August 10, 2024 Dr. Mckenzie Austin MD Other Provider Active St art: August 10, 2024 Dr. Beck Lee MD Attending Provider Active Start: August 10, 2024 Dr. Beck Lee MD Other Provider Active Star t: August 10, 2024 Team Status: Active Member Role Status Dates Coirn Mariscal MD Primary Care Provider Active St art: August 11, 2024 Dr. Torey Mercedes , Emergency Provider Active S tart: August 11, 2024 Dr. Mckenzie Austin MD Admit Provider Active St art: August 11, 2024 Dr. Mckenzie Austin MD Other Provider Active St art: August 11, 2024 Dr. Beck Lee MD Attending Provider Active Start: August 11, 2024 Dr. Beck Lee MD Other Provider Active Star t: August 11, 2024 Ashvin Bedolla MD Other Provider Active Start: [facility] [address]24 Dr. Hemant Stevenson MD Other Provider Active Start: August 11, 2024 Porsche Michelle MD Other Provider Active Start : August 11, 2024 Dr. Debora Torrez DO Other Provider Active St art: August 11, 2024 Dr. Bea Xiao MD Other Provider Active Start: August 11, 2024 Dr. Tray Beckett MD Other Provider Active Sta rt: August 11, 2024 Dr. Britni Padron MD Other Provider Active Start : August 11, 2024 Dr. Dc Bailey MD Other Provider Active Start: August 11, 2024 Dr. Vickie Nam MD Other Provider Active Start : August 11, 2024 Dr. Montez Reina MD Other Provider Active Sta rt: August 11, 2024 Ninoska Magallanes MD Other Provider Active Start : August 11, 2024 Dr. Alexis Gaffney MD Other Provider Active St art: August 11, 2024 Dr. Mari Calzada MD Other Provider Active Start : August 11, 2024 Dr. Laci Vigil MD Other Provider Active Sta rt: August 11, 2024 Dr. Eboni Rao MD Other Provider Active Start: August 11, 2024 Dr. Mau Quinones MD Other Provider Active St art: August 11, 2024 Dr. Lucas Padilla MD Other Provider Active Star t: August 11, 2024 Dr. Wilman Hodge MD Other Provider Active St art: August 11, 2024 Dr. Leandra Winkler MD Other Provider Active Start: August 11, 2024 Evelia Willis MD Other Provider Active Start: August 11, 2024 Team Status: Inactive Member Role Status Dates Corin Mariscal MD Primary Care Provider Active St art: August 11, 2024 End: August 13, 2024 Dr. Torey Mercedes DO Emergency Provider Active S tart: August 11, 2024 End: August 13, 2024 Dr. Mckenzie Austin MD Admit Provider Active St art: August 11, 2024 End: August 13, 2024 Dr. Mckenzie Austin MD Referring Provider Active Start: August 11, 2024 End: August 13, 2024 Dr. Mckenzie Austin MD Other Provider Active St art: August 11, 2024 End: August 13, 2024 Ashvin Bedolla MD Other Provider Active Start: [facility]2024 End: August 13, 2024 Dr. Hemant Stevenson MD Other Provider Active Start: August 11, 2024 End: August 13, 2024 Porsche Michelle MD Other Provider Active Start : August 11, 2024 End: August 13, 2024 Dr. Debora Torrez DO Other Provider Active St art: August 11, 2024 End: August 13, 2024 Dr. Bea Xiao MD Other Provider Active Start: August 11, 2024 End: August 13, 2024 Dr. Tray Beckett MD Other Provider Active Sta rt: August 11, 2024 End: August 13, 2024 Dr. Britni Padron MD Other Provider Active Start : August 11, 2024 End: August 13, 2024 Dr. Dc Bailey MD Other Provider Active Start: August 11, 2024 End: August 13, 2024 Dr. Vickie Nam MD Other Provider Active Start : August 11, 2024 End: August 13, 2024 Dr. Montez Reina MD Other Provider Active Sta rt: August 11, 2024 End: August 13, 2024 Ninoska Magallanes MD Other Provider Active Start : August 11, 2024 End: August 13, 2024 Dr. Alexis Gaffney MD Other Provider Active St art: August 11, 2024 End: August 13, 2024 Dr. Mari Calzada MD Other Provider Active Start : August 11, 2024 End: August 13, 2024 Dr. Laci Vigil MD Other Provider Active Sta rt: August 11, 2024 End: August 13, 2024 Dr. Eboni Rao MD Other Provider Active Start: August 11, 2024 End: August 13, 2024 Dr. Mau Quinones MD Other Provider Active St art: August 11, 2024 End: August 13, 2024 Dr. Lucas Padilla MD Other Provider Active Star t: August 11, 2024 End: August 13, 2024 Dr. Wilman Hodge MD Other Provider Active St art: August 11, 2024 End: August 13, 2024 Dr. Leandra Winkler MD Other Provider Active Start: August 11, 2024 End: August 13, 2024 Evelia Willis MD Other Provider Active Start: August 11, 2024 End: August 13, 2024 Dr. Beck Lee MD Other Provider Active Star t: August 11, 2024 End: August 13, 2024 Dr. Thong Sultana MD Attending Provider Active Start: August 11, 2024 End: August 13, 2024 Dr. Vamsi Mendoza DO Other Provider Active Start: August 11, 2024 End: August 13, 2024 Team Status: Active Member Role Status Dates Corin Mariscal MD Primary Care Provider Active St art: August 12, 2024 Dr. Torey Mercedes DO Emergency Provider Active S tart: August 12, 2024 Dr. Mckenzie Austin MD Admit Provider Active St art: August 12, 2024 Dr. Mckenzie Austin MD Other Provider Active St art: August 12, 2024 Ashvin Bedolla MD Other Provider Active Start: [facility] [address]24 Dr. Hemant Stevenson MD Other Provider Active Start: August 12, 2024 Porsche Michelle MD Other Provider Active Start : August 12, 2024 Dr. Debora Torrez DO Other Provider Active St art: August 12, 2024 Dr. Bea Xiao MD Other Provider Active Start: August 12, 2024 Dr. Tray Beckett MD Other Provider Active Sta rt: August 12, 2024 Dr. Britni Padron MD Other Provider Active Start : August 12, 2024 Dr. Dc Bailey MD Other Provider Active Start: August 12, 2024 Dr. Vickie Nam MD Other Provider Active Start : August 12, 2024 Dr. Montez Reina MD Other Provider Active Sta rt: August 12, 2024 Ninoska Magallanes MD Other Provider Active Start : August 12, 2024 Dr. Alexis Gaffney MD Other Provider Active St art: August 12, 2024 Dr. Mari Calzada MD Other Provider Active Start : August 12, 2024 Dr. Laci Vigil MD Other Provider Active Sta rt: August 12, 2024 Dr. Eboni Rao MD Other Provider Active Start: August 12, 2024 Dr. Mau Quinones MD Other Provider Active St art: August 12, 2024 Dr. Lucsa Padilla MD Other Provider Active Star t: August 12, 2024 Dr. Wilman Hodge MD Other Provider Active St art: August 12, 2024 Dr. Leandra Winkler MD Other Provider Active Start: August 12, 2024 Evelia Willis MD Other Provider Active Start: August 12, 2024 Dr. Vamsi Mendoza DO Attending Provider Active Start: August 12, 2024 Dr. Vamsi Mendoza DO Other Provider Active Start: August 12, 2024 Dr. Beck Lee MD Other Provider Active Star t: August 12, 2024 Team Status: Active Member Role Status Dates Corin Mariscal MD Primary Care Provider Active St art: August 13, 2024 Dr. Torey Mercedes DO Emergency Provider Active S tart: August 13, 2024 Dr. Mckenzie Austin MD Admit Provider Active St art: August 13, 2024 Dr. Mckenzie Austin MD Other Provider Active St art: August 13, 2024 Ashvin Bedolla MD Other Provider Active Start: [facility] [address]24 Dr. Hemant Stevenson MD Other Provider Active Start: August 13, 2024 Porsche Michelle MD Other Provider Active Start : August 13, 2024 Dr. Debora Torrez DO Other Provider Active St art: August 13, 2024 Dr. Bea Xiao MD Other Provider Active Start: August 13, 2024 Dr. Tray Beckett MD Other Provider Active Sta rt: August 13, 2024 Dr. Britni Padron MD Other Provider Active Start : August 13, 2024 Dr. Dc Bailey MD Other Provider Active Start: August 13, 2024 Dr. Vickie Nam MD Other Provider Active Start : August 13, 2024 Dr. Montez Reina MD Other Provider Active Sta rt: August 13, 2024 Ninoska Magallanes MD Other Provider Active Start : August 13, 2024 Dr. Alexis Gaffney MD Other Provider Active St art: August 13, 2024 Dr. Mari Calzada MD Other Provider Active Start : August 13, 2024 Dr. Laci Vigil MD Other Provider Active Sta rt: August 13, 2024 Dr. Eboni Rao MD Other Provider Active Start: August 13, 2024 Dr. Mau Quinones MD Other Provider Active St art: August 13, 2024 Dr. Lucas Padilla MD Other Provider Active Star t: August 13, 2024 Dr. Wilman Hodge MD Other Provider Active St art: August 13, 2024 Dr. Leandra Winkler MD Other Provider Active Start: August 13, 2024 Evelia Willis MD Other Provider Active Start: August 13, 2024 Dr. Beck Lee MD Other Provider Active Star t: August 13, 2024 Dr. Thong Sultana MD Attending Provider Active Start: August 13, 2024 Dr. Thong Sultana MD Other Provider Active Start: August 13, 2024 Dr. Vamsi Mendoza DO Other Provider Active Start: August 13, 2024 Team Status: Inactive Member Role Status Dates Corin Mariscal MD Primary Care Provider Active St art: August 19, 2024 End: August 19, 2024 Corin Mariscal MD Attending Provider Active Start : August 19, 2024 End: August 19, 2024 Corin Mariscal MD Referring Provider Active Start : August 19, 2024 End: August 19, 2024 Team Status: Inactive Member Role Status Aimee Mariscal MD Primary Care Provider Active St art: September 30, 2024 End: September 30, 2024 Dr. Junior Salter MD Attending Provider Active Sta rt: September 30, 2024 End: September 30, 2024 Dr. Junior Salter MD Emergency Provider Active Sta rt: September 30, 2024 End: September 30, 2024 Team Status: Inactive Member Role Status Aimee Mariscal MD Primary Care Provider Active St art: October 14, 2024 End: October 14, 2024 Corin Mariscal MD Attending Provider Active Start : October 14, 2024 End: October 14, 2024 Corin Mariscal MD Referring Provider Active Start : October 14, 2024 End: October 14, 2024 Nondestructive Tester Relationship Specialty Start Date End Date Corin Mariscal MD [address] [facility] [address] [place] [address] PCP - General Internal Medicine 10/15/24 Nondestructive Tester Relationship Specialty Start Date End Date Corin Mariscal MD [address] [facility] [address] [place] [address] PCP - General Internal Medicine 10/15/24 Team Status: Inactive Member Role Status Aimee Mariscal MD Primary Care Provider Active St art: October 21, 2024 End: October 21, 2024 Corin Mariscal MD Attending Provider Active Start : October 21, 2024 End: October 21, 2024 Corin Mariscal MD Referring Provider Active Start : October 21, 2024 End: October 21, 2024 Team Status: Active Member Role Status Aimee Mariscal MD Primary Care Provider Active St art: November 07, 2024 Dr. Armen Gonzales , Emergency Provider Active Start: November 07, 2024 Dr. Kaitlyn Winkler , Attending Provider Active S tart: November 07, 2024 Team Status: Active Member Role Status Aimee Mariscal MD Primary Care Provider Active St art: November 07, 2024 Dr. Armen Gonzales DO Emergency Provider Active Start: November 07, 2024 Dr. Kaitlyn Winkler , Admit Provider Active Start : November 07, 2024 Dr. Kaitlyn Winkler , DO Attending Provider Active S tart: November 07, 2024 Team Status: Inactive Member Role Status Dates Corin Mariscal MD Primary Care Provider Active St art: November 07, 2024 End: November 10, 2024 Dr. Armen Gonzales , Emergency Provider Active Start: November 07, 2024 End: November 10, 2024 Dr. Kaitlyn Winkler , Admit Provider Active Start : November 07, 2024 End: November 10, 2024 Dr. Kaitlyn Winkler , Other Provider Active Start : November 07, 2024 End: November 10, 2024 Dr. Blayne Santana DO Attending Provider Active Start: November 07, 2024 End: November 10, 2024 Team Status: Active Member Role Status Dates Corin Mariscal MD Primary Care Provider Active St art: November 08, 2024 Dr. Armen Gonzales DO Emergency Provider Active Start: November 08, 2024 Dr. Kaitlyn Winkler , Admit Provider Active Start : November 08, 2024 Dr. Kaitlyn Winkler , Other Provider Active Start : November 08, 2024 Dr. Blayne Santana DO Attending Provider Active Start: November 08, 2024 Dr. Blayne Santana DO Other Provider Active Star t: November 08, 2024 Team Status: Active Member Role Status Dates Corin Mariscal MD Primary Care Provider Active St art: November 09, 2024 Dr. Armen Gonzales DO Emergency Provider Active Start: November 09, 2024 Dr. Kaitlyn Winkler DO Admit Provider Active Start : November 09, 2024 Dr. Kaitlyn Winkler , Other Provider Active Start : November 09, 2024 Dr. Blayne Santana DO Attending Provider Active Start: November 09, 2024 Dr. Blayne Santana , Other Provider Active Star t: November 09, 2024 Team Status: Active Member Role Status Dates Corin Mariscal MD Primary Care Provider Active St art: November 10, 2024 Dr. Armen Gonzales DO Emergency Provider Active Start: November 10, 2024 DrLayo Winkler DO Admit Provider Active Start : November 10, 2024 Dr. Kaitlyn Winkler DO Other Provider Active Start : November 10, 2024 Dr. Blayne Santana , Attending Provider Active Start: November 10, 2024 Dr. Blayne Santana , DO Other Provider Active Star t: November 10, 2024 Source Comments (unrecognize d section and content) In the event this informatio n is protected by the Federal Confidentiality of Alcohol and Drug Abuse Patient Records regulations: The Federal rules restrict any use of the information to criminally investigate or prosecute any alcohol or drug abuse patient.[facility] the event this information is protected by the Federal Confidentiality of Alcohol and Drug Abuse Patient Records regulations: The Federal rules restrict any use of the information to criminally investigate or prosecute any alcohol or drug abuse patient.[facility] the event this information is protected by the Federal Confidentiality of Alcohol and Drug Abuse Patient Records regulations: The Federal rules restrict any use of the information to criminally investigate or prosecute any alcohol or drug abuse patient.[facility] the event this information is protected by the Federal Confidentiality of Alcohol and Drug Abuse Patient Records regulations: The Federal rules restrict any use of the information to criminally investigate or prosecute any alcohol or drug abuse patient.[facility] the event this information is protected by the Federal Confidentiality of Alcohol and Drug Abuse Patient Records regulations: The Federal rules restrict any use of the information to criminally investigate or prosecute any alcohol or drug abuse patient.[facility] Scheduled Active and Recently Administ ered Medications (unrecognized section and content) Medication Order 08/11/2023 08/12/2023 08/13/2023 acetaminophen (Tylenol) tablet 650 mg 650 mg, Oral, Every 6 hours, First dose on [place] 08/09/23 at 1430, Phase II/On Unit, Maximum dose of acetaminophen is 4000 mg from all sources in 24 hours. 0144 (Given - Provider: Bertha Scott RN)0809 (Given - Provider: Mallorie Levine RN)1420 (Given - Provider: Mallorie Levine RN)2038 (Given - Provider: Gisela Lucas RN) 0351 (Given - Provider: Gisela Lucas RN)0933 (Given - Provider: Mallorie Levine RN)1310 (Given - Provider: Mallorie Levine RN)2015 (Given - Provider: Gisela Lucas RN) 0230 (Not Given - Provider: Gisela Lucas RN - Reason: Patient/family refused)0754 (Given - Provider: Kelsey Monroe RN)1355 (Given - Provider: Kelsey Monroe RN)2046 (Given - Provider: Talya Nino RN) carvedilol (Coreg) tablet 3.125 mg 3.125 mg, Oral, Every evening, First dose on Sun08/09/23 at 1800, Phase II/On Unit, On hold since Sun08/09/2023 at 1822 until manually unheld 1800 (Dose Auto Held - Provider: Tessie Polanco MD) 1800 (Dose Auto Held - Provider: Tessie Polanco MD) 1800 (Dose Auto Held - Provider: Tessie Polanco MD) ceFAZolin in dextrose 4% (Ancef) IVPB 2,000 mg (CANCELED) 2,000 mg, IntraVENous, Administer over 30 Minutes, Every 8 hours, First dose on Sun08/09/23 at 1830, For 3 days, Phase II/On Unit, Patients < 120 k mg ~~~ Patients >/= 120 k mg premix bag, Suspected Indication (Select all that apply): Surgical Prophylaxis 0145 (New Bag - Provider: Bertha Scott RN)0215 (Stopped - Provider: Bertha Scott RN)0948 (New Bag - Provider: Mallorie Levine RN)1018 (Stopped - Provider: Mallorie Levine RN)1802 (New Bag - Provider: Mallorie Levine RN)1832 (Due: Stopped - Provider: Mallorie Levine RN) folic acid (Folvite) tablet 1 mg 1 mg, Oral, Daily, First dose on Sun08/13/23 at 1100 1139 (Given - Provider: Kelsey Monroe RN) Lidocaine 4 % patch 1 patch 1 patch, Topical, Administer over 12 Hours, Daily, First dose on Sun08/10/23 at 0900, Apply patch to affected area. Patch may remain in place for up to 12 hours in any 24 hour period. 0810 (Medication Applied - Provider: Mallorie Levine RN)2009 (Medication Removed - Provider: Gisela Lucas RN) 09 (Medication Applied - Provider: Mallorie Levine RN)2133 (Medication Removed - Provider: Gisela Lucas, SIMON) 0757 (Not Given - Provider: Kelsey Monroe RN - Reason: Patient/family refused) LORazepam (Ativan) tablet 1 mg (COMPLETED) 1 mg, Oral, Once, On 08/13/23 at 1100, For 1 dose 1139 (Given - Provider: Kelsey Monroe, SIMON) mometasone-formoterol (Dulera 100) 100-5 MCG/ACT inhaler 2 puff 2 puff, Inhalation, 2 times daily, First dose on [place] 08/09/23 at 2000, Phase II/On Unit, Rinse mouth with water after use to reduce aftertaste and incidence of candidiasis. Do not swallow. 0810 (Given - Provider: Mallorie Levine RN)2036 (Given - Provider: Gisela Lucas, SIMON) 0934 (Given - Provider: Mallorie Levine RN)2014 (Given - Provider: Gisela Lucas RN) 075 (Given - Provider: Kelsey Monroe, SIMON)2048 (Given - Provider: Talya Nino RN) pantoprazole (ProtoNix) EC tablet 40 mg 40 mg, Oral, Every morning, First dose on Sun08/10/23 at 0900, Phase II/On Unit, Do not crush, chew, or split. 0810 (Given - Provider: Mallorie Levine RN) 0934 (Given - Provider: Mallorie Levine RN) 0753 (Given - Provider: Kelsey Monroe, SIMON) potassium chloride (Klor-Con) packet 40 mEq (COMPLETED) 40 mEq, Oral, Once, On 08/11/23 at 0730, For 1 dose, Dissolve each packet in 4 ounces of water = 5 mEq per 1 oz fluid., Indications: Hypokalemia 0810 (Given - Provider: Mallorie Levine RN) potassium chloride (Klor-Con) packet 40 mEq (COMPLETED) 40 mEq, Oral, Once, On 08/12/23 at 0745, For 1 dose, Dissolve each packet in 4 ounces of water = 5 mEq per 1 oz fluid., Indications: Hypokalemia 0934 (Given - Provider: Mallorie Levine RN) rosuvastatin (Crestor) tablet 40 mg 40 mg, Oral, Nightly, First dose on [place] 08/09/23 at 2100, Phase II/On Unit 2037 (Given - Provider: Gisela Lucas RN) 2014 (Given - Provider: Gisela Lucas RN) 2051 (Given - Provider: Talya Nino RN) senna-docusate sodium (Senokot-S) 8.6-50 MG tablet 2 tablet 2 tablet, Oral, Daily, First dose on 08/11/23 at 0900 0948 (Given - Provider: Mallorie Levine RN) 0933 (Given - Provider: Mallorie Levine RN) 0754 (Given - Provider: Kelsey Monroe, SIMON) sodium chloride 0.9% (NS) flush 10 mL 10 mL, IntraVENous, Every 12 hours scheduled (2 times per day), First dose on [place] 08/09/23 at 2100, Phase II/On Unit 0900 (Given - Provider: Mallorie Levine RN)2037 (Given - Provider: Gisela Lucas RN) 0939 (Given - Provider: Mallorie Levine RN)2016 (Not Given - Provider: Gisela Lucas RN - Reason: Loss of IV access) 0900 (Not Given - Provider: Kelsey Monroe RN - Reason: Loss of IV access)2100 (Not Given - Provider: Talya Nino RN - Reason: Loss of IV access) technetium Tc 99m pentetate radio-isotope injection 47 millicurie (COMPLETED) 47 millicurie, Inhalation, Once, On 08/13/23 at 1245, For 1 dose 1245 (Given - Provider: KEYSHAWN Moser) technetium Tc-99m albumin aggregated (MAA) radio-isotope solution 5 millicurie (COMPLETED) 5 millicurie, IntraVENous, Once, On 08/13/23 at 1315, For 1 dose 1255 (Given - Provider: KEYSHAWN Moser) temazepam (Restoril) capsule 15 mg 15 mg, Oral, Nightly, First dose on 08/13/23 at 2100 204 (Given - Provider: Talya Nino, SIMON) thiamine (Vitamin B1) tablet 100 mg 100 mg, Oral, Daily, First dose on Sun08/13/23 at 1100 1139 (Given - Provider: Kelsey Monroe RN) trospium (Sanctura) tablet 20 mg 20 mg, Oral, 2 times daily, First dose on [place] 08/09/23 at 1445, Phase II/On Unit, Give one hour before meals. 0810 (Given - Provider: Mallorie Levine RN)2037 (Given - Provider: Gisela Lucas RN) 0933 (Given - Provider: Mallorie Levine RN)2014 (Given - Provider: Gisela Lucas RN) 075 (Given - Provider: Kelsey Monroe, SIMON)2046 (Given - Provider: Talya Nino RN) PRN Medication Order 08/11/2023 08/12/2023 08/13/2023 albuterol 108 (90 Base) MCG/ACT inhaler 2 puff 2 puff, Inhalation, Every 4 hours PRN, wheezing, shortness of breath, Starting on [place] 08/09/23 at 1430, Phase II/On Unit HYDROmorphone (Dilaudid) injection 0.25 mg(Linked Group 1) 0.25 mg, IntraVENous, Every 4 hours PRN, moderate pain (4-6), Starting on [place] 08/09/23 at 2145, Phase II/On Unit, If oral and IV narcotics ordered, use oral first and only use IV if oral is ineffective or cannot take oral. Do Not give oral and IV within 1 hour of each other unless specifically ordered. HYDROmorphone (Dilaudid) injection 0.5 mg(Linked Group 1) 0.5 mg, IntraVENous, Every 4 hours PRN, severe pain (7-10), Starting on [place] 08/09/23 at 2145, Phase II/On Unit, If oral and IV narcotics ordered, use oral first and only use IV if oral is ineffective or cannot take oral. Do Not give oral and IV within 1 hour of each other unless specifically ordered. hydrOXYzine HCl (Atarax) tablet 25 mg 25 mg, Oral, Every 8 hours PRN, anxiety, Starting on Sun08/10/23 at 1219 0147 (Given - Provider: Bertha Scott RN) 2310 (Given - Provider: Gisela Lucas RN) 1014 (Given - Provider: Kelsey Monroe RN) LORazepam (Ativan) tablet 1 mg 1 mg, Oral, Every 6 hours PRN, anxiety, other, signs and symptoms of benzodiazepine withdrawal, Starting on 08/13/23 at 1048 2048 (Given - Provider: Talya Nino RN) methocarbamol (Robaxin) tablet 1,000 mg 1,000 mg, Oral, Every 8 hours PRN, muscle spasms, Starting on [place] 08/09/23 at 2131 0630 (Given - Provider: Bertha Scott RN) 2014 (Given - Provider: Gisela Lucas RN) 1014 (Given - Provider: Kelsey Monroe RN)2046 (Given - Provider: Talya Nino, SIMON) naloxone (Narcan) injection 0.4 mg 0.4 mg, IntraVENous, Every 5 min PRN, opioid reversal, respiratory depression, Starting on [place] 08/09/23 at 1703, +++ For RR <10, pinpoint pupils, over sedation for opioid reversal - MUST notify station air traffic control specialist provider immediately after first dose, may give IM or SQ if no IV access +++ ondansetron (Zofran) injection 4 mg(Linked Group 2) 4 mg, IntraVENous, Every 6 hours PRN, nausea, vomiting, Starting on [place] 08/09/23 at 1421, Phase II/On Unit, 1st Line. Give IV if patient is unable to take orally. If inadequate response within 60 minutes, proceed to next-line agent or contact provider if no further options ordered. ondansetron ODT (Zofran-ODT) disintegrating tablet 4 mg(Linked Group 2) 4 mg, Oral, Every 8 hours PRN, nausea, vomiting, Starting on [place] 08/09/23 at 1421, Phase II/On Unit, 1st Line. If inadequate response within 60 minutes, proceed to next-line agent or contact provider if no further options ordered. Patient should allow tablet to dissolve on tongue. Do not remove from blister pack until just before administering. oxyCODONE (Roxicodone) immediate release tablet 10 mg(Linked Group 3) 10 mg, Oral, Every 4 hours PRN, severe pain (7-10), Starting on [place] 08/09/23 at 1424, Phase II/On Unit 0147 (Given - Provider: Bertha Scott, RN)0630 (Given - Provider: Bertha Scott RN)1420 (Given - Provider: Mallorie Levine RN)2301 (Given - Provider: Gisela Lucas RN) 0759 (Given - Provider: Mallorie Levine RN)1310 (Given - Provider: Mallorie Levine RN) 0103 (Given - Provider: Gisela Lucas RN)0756 (Given - Provider: Kelsey Monroe RN)1355 (Given - Provider: Kelsey Monroe RN)1815 (Given - Provider: Kelsey Monroe RN)2217 (Given - Provider: Pacheco Miller LPN) oxyCODONE (Roxicodone) immediate release tablet 5 mg(Linked Group 3) 5 mg, Oral, Every 4 hours PRN, moderate pain (4-6), Starting on [place] 08/09/23 at 1424, Phase II/On Unit 0147 (See Alternative - Provider: Bertha Scott RN)0630 (See Alternative - Provider: Bertha Scott RN)1420 (See Alternative - Provider: Mallorie Levine RN)2301 (See Alternative - Provider: Gisela Lucas RN) 0759 (See Alternative - Provider: Mallorie Levine RN)1310 (See Alternative - Provider: Mallorie Levine RN) 0103 (See Alternative - Provider: Gisela Lucas RN)0756 (See Alternative - Provider: Kelsey Monroe RN)1355 (See Alternative - Provider: Kelsey Monroe RN)1815 (See Alternative - Provider: Kelsey Monroe RN)2217 (See Alternative - Provider: Pacheco Miller LPN) polyethylene glycol (PEG) 3350 (Miralax) packet 17 g 17 g, Oral, Daily PRN, constipation, Starting on [place] 08/09/23 at 1421, Phase II/On Unit, 1st line for treatment of constipation - give scheduled if no bowel movement in past 24 hours. 1139 (Given - Provider: Kelsey Monroe RN) sodium chloride 0.9 % infusion 5-250 mL/hr, IntraVENous, PRN, if patient receiving piggyback infusions and maintenance fluids are not ordered OR KVO fluids to protect IV site / prevent frequent line interruptions/ long duration, Starting on [place] 08/09/23 at 1421, Phase II/On Unit, For piggyback infusion, administer at same rate as piggyback for a total of 25 mL. Enter 25 mL into dose field and piggyback rate into rate field of order. If piggyback is infusing at a rate less than 100 mL/hr, enter 25 mL into dose field and 100 mL/hr into rate field of order. For KVO fluids, enter rate of 20 mL/hr or less into rate field of order. sodium chloride 0.9 % infusion 250 mL/hr, IntraVENous, Administer over 10 Minutes, As needed, For use in priming line prior to transfusion (prime via gravity) and flush line post transfusion, Starting on [facility] 08/11/23 at 1108, For 1 dose, For use in priming line prior to transfusion (prime via gravity) and flush line post transfusion ONLY. Discontinue once line has been cleared of remaining blood product. sodium chloride 0.9% (NS) flush 10 mL 10 mL, IntraVENous, PRN, line care, Starting on [place] 08/09/23 at 1421, Phase II/On Unit, After every IV line use Linked Groups Order Group 1: HYDROmorphone (Dilaudid) injection 0.25 mgJump to med 0.25 mg, IntraVENous, Every 4 hours PRN, moderate pain (4-6), Starting on [place] 08/09/23 at 2145, Phase II/On Unit, If oral and IV narcotics ordered, use oral first and only use IV if oral is ineffective or cannot take oral. Do Not give oral and IV within 1 hour of each other unless specifically ordered. Or HYDROmorphone (Dilaudid) injection 0.5 mgJump to med 0.5 mg, IntraVENous, Every 4 hours PRN, severe pain (7-10), Starting on [place] 08/09/23 at 2145, Phase II/On Unit, If oral and IV narcotics ordered, use oral first and only use IV if oral is ineffective or cannot take oral. Do Not give oral and IV within 1 hour of each other unless specifically ordered. Group 2: ondansetron ODT (Zofran-ODT) disintegrating tablet 4 mgJump to med 4 mg, Oral, Every 8 hours PRN, nausea, vomiting, Starting on [place] 3 at 1421, Phase II/On Unit, 1st Line. If inadequate response within 60 minutes, proceed to next-line agent or contact provider if no further options ordered. Patient should allow tablet to dissolve on tongue. Do not remove from blister pack until just before administering. Or ondansetron (Zofran) injection 4 mgJump to med 4 mg, IntraVENous, Every 6 hours PRN, nausea, vomiting, Starting on [place] 08/09/23 at 1421, Phase II/On Unit, 1st Line. Give IV if patient is unable to take orally. If inadequate response within 60 minutes, proceed to next-line agent or contact provider if no further options ordered. Group 3: oxyCODONE (Roxicodone) immediate release tablet 5 mgJump to med 5 mg, Oral, Every 4 hours PRN, moderate pain (4-6), Starting on [place] 3 at 1424, Phase II/On Unit Or oxyCODONE (Roxicodone) immediate release tablet 10 mgJump to med 10 mg, Oral, Every 4 hours PRN, severe pain (7-10), Starting on [place] 3 at 1424, Phase II/On Unit FOR RECORDS PERTAINING TO PATIENTS WHO ARE OR HAVE BEEN ENROLLED IN A CHEMICAL DEPENDENCY/SUBSTANCEABUSE PROGRAM, SOME INFORMATION MAY BE OMITTED. This clinical summary was aggregated from multiple sources. Caution should be exercised in using it in the provision of clinical care. This summary normalizes information from multiple sources, and as a consequence, information in this document may materially change the coding, format and clinical context of patient data. In addition, data may be omitted in some cases. CLINICAL DECISIONS SHOULD BE BASED ON THE PRIMARY CLINICAL RECORDS. [employer] [facility]. provides no warranty or guarantee of the accuracy or completeness of information in this document.
[2025-04-18 10:07] LABS: Hematocrit 32.6 % (37-47); Hemoglobin 10.0 g/dL (12.0-15.0); Immature Granulocytes Count 0.070 X10^3/uL (0.0-0.0); Mean Corp Hgb Conc 30.7 g/dL (32-36); Mean Corpuscular Volume 97.6 fL (81-99); Mean Platelet Vol. 9.8 fl (6.2-12.0); NRBC Flagged by Analyzer 0 % (0-5); Platelet Count 163 K/mm3 (150-450); RBC Distribution Width CV 14.3 % (11.6-14.6); RBC Distribution Width SD 50.1 fl (35.1-43.9); Red Blood Count 3.34 M/mm3 (4.2-5.4); White Blood Count 4.8 K/mm3 (4.4-11.0)
[2025-04-18 10:53] LABS: Anion Gap 13 (5-15); BUN 33 mg/dL (4-19); BUN/Creat Ratio 15.7 RATIO (10-20); Calcium,Total 8.8 mg/dL (7.6-11.0); Carbon Dioxide 26.1 mmol/L (21.0-32.0); Chloride 103 mmol/L (98-108); Estimated Creatinine Clearance 35.08 ml/min (50-250); Glucose 86 mg/dL (70-99); Potassium 3.2 mmol/L (3.3-5.1)
[2025-04-18] MEDS: 0.9% Normal Saline (1000mL) 1,000 ML 150 ML IV ×3 (11:23→22:53)
--- NOTE | 2025-04-18 11:26 | PCM.HP.STD ---
HPI - General General Date of Admission: 04/18/25 Date of Service: 04/18/25 Chief Complaint: right rib/chest pain HPI Narrative ALFIE HOGAN, is a 64 F with a PMH as outlined who was admitted via the ED on 04/18/2025 with a complaitn of chest pain. She had a mechanical fall a week ago and came ot the ED then. She had imaging done which showed no evidence of pneumonia or fractures so she was discharged home on pain meds. However she continued having pain, with associated shortness of breath, palpitations and fever. Review of systems is otherwise negative. Vitals in the ED were BP of 123/78, CO of 116 and RR of 18, with oxygen sats of 94% on room air. CBC showed Hb of 10, wbc was 4.8 and platelets of 163. Chemistry showed sodium of 142, potassium of 3.2 and Cr of 2.09. Lactic acid is pending. CT chest/abdomen/pelvis with contrast showed no evidence of PE, and showed no acute cardiopulmonary process, bibasilar atelectasis and small pleural effusion, no demonstrated rib fracture, pleural thickening or pneumothorax. She was started on IV levaquin and is being admitted to be managed for pain and superimposed pneumonia in the setting of mechanical fall with possible lung contusion. [facility] Medical History Chronic prescription benzodiazepine use Diabetes Osteoporosis Kidney stones Irregular heart beat Chest pain Normocytic anemia Diabetes Chronic pain CPAP (continuous positive airway pressure) dependence Contusion of left hip Contusion of rib on right side Contusion of left shoulder Contusion of scalp Closed fracture of fibula, proximal, left Pyuria Substance abuse Kidney disease Former smoker BiPAP (biphasic positive airway pressure) dependence Sleep apnea On home oxygen therapy Hypertension Dementia Alcohol withdrawal Alcohol abuse Admitted to alcohol detoxification center Medical marijuana use Frequent falls DVT (deep venous thrombosis) Right ventricular systolic dysfunction Right bundle branch block (RBBB) Essential (primary) hypertension Sepsis Abdominal pain Migraine Chronic renal insufficiency, stage I Pancytopenia Respiratory tract infection due to COVID-19 virus Endocarditis Gastritis Restrictive lung disease Colitis Osteoarthritis Chronic renal failure Depression GENNARO (obstructive sleep apnea) Pneumonia Bronchitis Asthma COPD (chronic obstructive pulmonary disease) Morbid obesity HLD (hyperlipidemia) Bronchiectasis Idiopathic right ventricular dilation Thrombocytopenia Leukopenia Abnormal liver CT Anemia Anxiety Respiratory insufficiency Respiratory failure with hypoxia Colitis with rectal bleeding History of umbilical hernia History of diarrhea Arthritis Gastroesophageal reflux disease Home Medications ?Medication ?Instructions ?Recorded ?Last Taken ?Type mometasone-formoterol HFA 100 2 puff inhalation BID SHORTNESS OF 03/05/23 04/17/25 Rx mcg-5 mcg/actuation aerosol BREATH/WHEEZING #13 grams inhaler (Dulera) linaclotide 290 mcg capsule 290 mcg PO DAILY bowel function 01/28/24 04/17/25 History (Linzess) trospium 20 mg tablet 20 mg PO BID see 01/28/24 04/17/25 History albuterol sulfate 90 mcg/actuation 1 puff inhalation Q6H PRN 07/17/24 04/17/25 Rx aerosol inhaler shortness of breath or wheezing #6.7 grams ferrous sulfate 325 mg (65 mg 325 mg PO QDAY Supplement 08/09/24 04/17/25 History iron) tablet (iron) alprazolam 0.5 mg tablet 0.5 mg PO BID PRN anxiety #6 tabs 11/10/24 04/18/25 Rx acetaminophen 500 mg tablet 1,000 mg (2 x 500 mg) PO Q6H PRN 11/19/24 04/13/25 Rx PRN Pain Score 1-10 #0 tabs ondansetron 8 mg disintegrating 8 mg PO Q8H PRN nausea and 02/16/25 Unknown Rx tablet vomiting 30 days #90 tabs pantoprazole 40 mg tablet,delayed 40 mg PO BID ACID REFLUX 02/16/25 04/17/25 History release scopolamine base 1 mg over 3 days 1 patch transdermal Q72H #10 ea 02/16/25 Unknown Rx transdermal patch doxepin 25 mg capsule 25 mg PO QHS 04/13/25 04/17/25 History hydrocodone-acetaminophen 5-325mg 1 tab PO Q4H PRN PRN Pain 2 days 04/13/25 Unknown Rx 5mg-325mg #14 TABLETS tirzepatide 7.5 mg/0.5 mL 7.5 mg subcut QWEEK 04/13/25 03/28/25 History subcutaneous pen injector (Esmer) Held on 04/13/25. Instructions: temporarily stopped baclofen 10 mg tablet 10 mg PO DAILY 04/18/25 04/17/25 History naproxen 500 mg tablet 500 mg PO BID 04/18/25 04/17/25 History prednisone 10 mg tablet See Taper PO 04/18/25 04/17/25 History temazepam 15 mg capsule 30 mg PO DAILY 04/18/25 04/17/25 History Allergy/AdvReac Type Severity Reaction Status Date / Time house dust Allergy ITCHY EYES Verified 04/18/25 09:13 Penicillins Allergy Hives Verified 04/18/25 09:13 Seasonal Allergies: Uncoded Allergy ITCHY EYES Verified 04/18/25 09:13 Family History Father Colon cancer Mother Cancer pancreatic Surgical History History of tubal ligation History of appendectomy History of hysterectomy History of cholecystectomy Social History household members: none Smoking Status: Former smoker Tobacco: How many years used: 25 how long ago did patient quit smokin, 0.5ppd second hand exposure: Yes alcohol intake: former substance use type: does not use ROS Constitutional Constitutional: Reports chills, fatigue, fever(s) and malaise; Denies anorexia or weakness Eyes Eyes: Denies change in vision ENT HEENT: Denies dysphagia or headache(s) Cardiovascular Cardiovascular: Reports chest pain, dyspnea on exertion and palpitations; Denies edema, lightheadedness, orthopnea, paroxysmal nocturnal dyspnea, rapid heart rate or syncope Respiratory/Chest Respiratory/Chest: Reports cough, dyspnea, shortness of breath at rest and shortness of breath with exertion; Denies productive cough or wheezing Gastrointestinal Gastrointestinal: Denies abdominal pain, constipation, diarrhea, nausea or vomiting Genitourinary Genitourinary: Denies burning urination or dysuria Musculoskeletal Musculoskeletal: Denies arthralgias Neurologic Neurologic: Denies confusion, dizziness, focal weakness, headache(s), numbness or seizures Psychiatric Psychiatric: Denies anxiety Vital Signs Vital Signs Vital Signs: 04/18/25 09:13 04/18/25 09:13 04/18/25 09:24 Temperature 97 F L Temperature Source Temporal Pulse Rate 123 H 133 H Respiratory Rate 30 H 30 H Respiratory Effort Normal Blood Pressure 142/87 H Blood Pressure Mean 105 Pulse Ox 89 84 Oxygen Delivery Method Nasal Cannula Nasal Cannula Oxygen Flow Rate (L/min) 2 2 Weight Weight: 233 lb 3.985 oz Body Mass Index (BMI) 35.4 Physical Exam Const alert Constitutional Narrative: looks uncomfortable General Appearance: cooperative HEENT normocephalic, head/scalp atraumatic, hearing grossly normal bilaterally and oropharynx normal Mouth: oral and palatal mucosa normal Eyes PERRL and EOMs intact bilaterally Neck supple Resp Resp Narrative: mildly diminished breath sounds bibasally, no wheezes or crackles. On room air. Cardio regular rhythm, S1 normal heart sound, S2 normal heart sound and no murmurs Cardio Narrative: tachycardic GI normal to inspection, nondistended, normoactive bowel sounds, soft to palpation and non-tender Extremity normal to inspection, full ROM and no clubbing, cyanosis or edema Neuro oriented x3, moves all extremities and no focal motor deficits Sensorium / Orientation: awake and alert Motor Exam: strength 5/5 throughout Psych Psych Narrative: looks uncomfortable Results Lab / Micro Data 04/18/25 09:35 04/18/25 09:35 Labs: Laboratory Results - last 24 hr 04/18/25 09:35: WBC 4.8, RBC 3.34 L, Hgb 10.0 L, Hct 32.6 L, MCV 97.6, MCH 29.9, MCHC 30.7 L, RDW Std Deviation 50.1 H, RDW Coeff of Jaun 14.3, Plt Count 163, MPV 9.8, Immature Gran % (Auto) 1.400 H, Neut % (Auto) 78.4 H, Lymph % (Auto) 13.2 L, Gilmer % (Auto) 6.4, Eos % (Auto) 0.4, Baso % (Auto) 0.2, Absolute Neuts (auto) 3.8, Absolute Lymphs (auto) 0.64 L, Nucleated RBC % 0, Sodium 142, Potassium 3.2 L, Chloride 103, Carbon Dioxide 26.1, Anion Gap 13, BUN 33 H, Creatinine 2.09 H, Estim Creat Clear Calc 35.08 L, Est GFR (MDRD) Non-Af 26 L, BUN/Creatinine Ratio 15.7, Glucose 86, Calcium 8.8 Micro: Microbiology 04/18/25 09:50 Mucosa - Nose SARS-CoV-2, Influenza & RSV (PCR) - Final Imaging Radiology Impression Chest/Abdomen/Pelvis CT 04/18/25 09:29 IMPRESSION: No acute pulmonary process, bibasilar atelectasis with small pleural effusions. Follow-up recommended to ensure resolution. No demonstrated rib fracture, pleural thickening or pneumothorax Fatty liver, no discrete lesion Simple cortical cysts in the kidneys, no specific follow-up Retained stool in the colon which may be impacted Degenerative bony changes surgical hardware in the lower lumbar spine, and bilateral replaced hip joints free of complication Reading Location: [facility] Assessment & Plan Assessment/Plan (1) Chest wall contusion: (2) Pneumonia: PLAN: Plan #Chest pain due to mechanical with superimposed pneumonia admit to PCU due to tachycardia and tachypnea had mechanical fall with resultant chest contusion. Came in to the ED then but was sent home subsequently. Came back with pain with and fever as well as tachycardia and shortness of breath. CT chest/abdomen/pelviss showed no acute cardiopulmonary process, bibasilar atelectasis with small pleural effusions and showed no demonstrated fracture, pleural thickening or pneumothorax; it showed fatty liver with no discrete lesion and retained stool in the colon which may be impacted. continue IV levaquin. Breathing treatment with bronchodilators PO tylenol, PO oxycodone and IV morphine prn for pain incentive spirometry #Hypokalemia: Potassium is 3.2. Replace and trend. #PEDRO on CKD: Creatinine is 2.09 with a baseline of around 1.2. Will hydrate with IV fluids and monitor. #COPD: not in exacerbation. On dulera. Breathing treatment with bronchodilators # Chronic respiratory failure due to COPD: On 2 L of oxygen which is her baseline. Breathing treatments bronchodilators. Titrate oxygen to maintain saturation above 90%. #Type 2 diabetes mellitus: on tirzepatide. ISS. Accuchecks ACHS #Hyperlipidemia: on statin #DVT prophylaxis: lovenox Code status: Full code Patient counseled extensively about different types of CODE STATUS including full code, DNR CCA and DNR CCA. Patient elects to be full code. Total [id number] time 17 minutes. Charges/Coding Visit Charges Inpatient E&M: 05794 Init Hosp L3 Procedures Hospitalists Procedures: 89381 Advncd Care Plan 30 Min
[2025-04-18] MEDS: levoFLOXacin IV 750 MG/150 ML BAG 100 MG IV (11:54)
--- OUTSIDE RECORDS SUMMARY | 2025-04-18 12:19 | XMS RPT_ITS | CCD ---
Author Organization [facility] Care Team Providers Care Knot Tier Name Role Phone ANEL PREM N Unavailable Unavailable GRIS TAMULAM N Unavailable Unavailable BERNARDINO MORAN Unavailable Unavailable Elizabeth Givens Unavailable Bernardino Moran Primary Care Provider [phone] Bernardino Moran Primary Care Provider BERNARDINO MORAN Primary Care Unavailable BERNRADINO MORAN Referring Unavailable DESHAWN, ROB Admitting Unavailable [...] Care Provider Dr. Bernardino Moran Referring Provider Ranulfo ADEN, PA Elizabeth Pope Attending Provider [...] PA Grayson Attending Provider [phone] aSm Padron Attending Provider Dr. Sam Padron Referring Provider Dr. Sam Padron Other Provider Dr. Pablo Maurer Attending Provider [phone] Dr. Bernardino Moran Primary Care Provider Dr. Bernardino Moran Referring Provider [phone] Rodrick PA, PA Grayson Attending Provider [phone] [...] Provider Dr. Bernardino Moran Referring Provider Yoni SDC TEACHER, SDC TEACHER-C Patricia Attending Provider Bernardino Moran MD Primary Care Provider Dr. Bernardino Moran Primary Care Provider Dr. Bernardino Moran Referring Provider [phone] Yoni SDC TEACHER, SDC TEACHER-C Patricia Attending Provider Unavailable Primary Care Provider Unavailabl e BERNARDINO MORAN Primary Care Unavailable BERNARDINO MORAN Attending Unavailable BERNARDINO MORAN Primary Care Unavailable BERNARDINO MORAN Attending Unavailable BRANDON BEAN Attending Unavailable BERNARDINO MORAN Primary Care Unavailable LETICIA HECTOR Consulting Unavailable BRANDON BEAN Attending Unavailable BRANDON BEAN Admitting Unavailable BERNARDINO MORAN Primary Care Unavailable TESSIE POLANCO Consulting Unavailable Bernardino Moran Primary Care Provider Corin Mariscal MD Primary Care Provider Dr. Kendall Dsouza MD Attending Provider [phone] Dr. Kendall Dsouza MD Emergency Provider Dr. Junior Salter MD Emergency Provider Dr. [...] Provider Gaetano [place], Dr. Pacheco Emergency Provider [phone] de Yaw BERMUDEZ, Dr. Vasquez Admit Provider [...] Rosa [place], Dr. Vasquez Other Provider Unavailable Ashvni Bedolla MD Other Provider Unavailable Elva [place], Dr. Marcos Other Provider Porsche Michelle MD Other Provider Unavailable Dr. Debora Torrez DO Other Provider Ninoska [place], Dr. Figueredo Other Provider Dr. Tray Beckett MD Other Provider Vito [place], Dr. Ryder Other Provider Lynn [place], Dr. Irwin Other Provider Dr. Vickie Nam MD Other Provider Nuno [place], Dr. Herrmann Other Provider Sona [place], Ninoska Other Provider Gulshan [place], Dr. Espinoza Other Provider Zheng [place], Dr. Guerra Other Provider Musa [place], Dr. Aguero Other Provider Jalen [place], Dr. Eboni Hravey Other Provider Joni [place], Dr. León Other Provider Randy [place], Dr. Zavala Other Provider [phone] Ayesha [place], Dr. Stovall Other Provider Peterson [place], Dr. Mobley Other Provider Unavailable [...] Debora Consulting Unavailable Zha, Bea Consulting Unavailable Suijt, Tray Consulting Unavailable Vito, Britni Consulting Unavailable [...] RidhaLaci Consulting Unavailable Zaghlouleh, Mhd Wes Consulting UnavailaMu Del Rosario Consulting Unavailable Padilla, Rami Consulting [...] Translations: [OXYCODONE-ACETAM INOPHEN] Drug Allergy 5 Itching [facility] (9 sources) Dust; Translations: [DUST] Propensity to adverse reactions (disorder) 4 Other: See Comments [facility] (20 sources) Penicillins; Translations: [PENICILLINS] Propensity to adverse reactions (disorder) 6 Hives [facility] (8 sources) Seasonal allergy; Translations: [SEASONAL ALLERGIES] Propensity to adverse reactions (disorder) 4 Other: See Comments [facility] (8 sources) CAT HAIR STANDARDIZED ALLERGENIC EXTRACT; Translations: [CAT HAIR STANDARDIZED ALLERGENIC EXTRACT] Propensity to adverse reactions (disorder) 8 Other: See Comments [facility] (6 sources) bee pollen Propensity to adverse reactions to drug 8 [place], [place] (20 sources) Cat Hair Extract Drug Allergy 8 Other (See Comments) [place] (6 sources) MITE EXTRACT Drug Allergy 8 [place] (2 sources) Seasonal allergy Allergy to substance [address] [facility] Work Phone: (16 sources) house dust allergenic extract Drug Allergy [address] [facility] (16 sources) Seasonal Allergies: Uncoded; Translations: [Seasonal Allergies: Uncoded] Allergy to substance [address] [facility] (20 sources) beta Sitosterol / ZINC CITRATE Drug Allergy [address] [facility] (20 sources) House dust mite Allergy to substance [address] [facility] (20 sources) Pollen Propensity to adverse reactions [address] [facility] (10 sources) Cat Hair Extract Allergy to substance [address] [facility] (20 sources) Bee pollen Propensity to adverse reactions [address] [facility] (2 sources) Opioids - Morphine Analogues Propensity to adverse reactions [address] [facility] Comment on above: Increased confusion with narcotic use (1 source) house dust allergenic extract Drug Allergy 5 [facility] (1 source) Opioids - Morphine Analogues Drug allergy (disorder) 5 [facility] Medications Current Medications Medication Drug [...] Start: 10-24-2019 acetaminophen (TYLENOL) tablet 650 mg [id number] 200 actuat albuter ol 0.09 mg/actuat metered [...] January 13, 2021 11:00pm Start: 08-25-2020 FLUoxetine (DE OZAC) capsule 30 mg Start: 07-15-2020 End: [...] BiPAP Machine MISC (6 sources) BiPAP Machine [place] busPIRone hydrochloride 5 mg oral tablet [...] 9:18am Start: 08-04-2020 take 1 capsule by [facility] four times daily as needed for nausea [...] 11:50am docusate sodium 50 mg / sennosides, fci 8.6 mg oral tablet (2 sources) Start: [...] hydrochloride 10 mg oral tablet (20 sources) N-lxazxq-Z-aspartate Receptor Antagonist Start: 12-31-2021 End: 03-05-2023 Start: [...] Comment on above: Take 1 tablet by rahcid th twice daily with meals. ondansetron 4 [...] Start: 07-12-2023 End: 07-12-2023 polyethylene glycol 3350 82893 mg powder for oral solution (4 sources) [...] on above: Take 6 tablets by mo [facility] twice daily. predniSONE 10 mg oral tablet [...] on above: 1 tablet daily at be dtict. Semaglutide (6 sources) Start: 01-28-2024 End: 07-13-2024 [...] 10 mL, Intravenous, PRN, Line Care, Per Higher Level Teaching Assistant Request, Starting Sun10/24/19 at 2117, For 72 hours May use order for Line Care after every IV line use and Agitated Saline Bubble Study. Administration for Bubble Study per cook candy request for only. 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 CBC W/Diff, Automatedon 02-03 Absolute Lymph 0.93 X10 3/uL Normal 0.83-4.51 [facility] Comment on above: Performed By: #### L 500.4100, L100.0100, L500.4050, L501.9520 ####[facility] [address] [place], [address] Absolute Neut 2.5 X10 3/uL Normal 2.0-7.7 [facility] Comment on above: Performed By: #### L 500.4100, L100.0100, L500.4050, L501.9520 ####[facility] [address] [place], [address] Basophils/100 WBC (Bld) 0.5 % Normal 0-1 [facility] Comment on above: Performed By: #### L 500.4100, L100.0100, L500.4050, L501.9520 ####[facility] [address] [place], [address] Eosinophils/100 WBC (Bld) 2.4 % Normal 0-5 [facility] Comment on above: Performed By: #### L 500.4100, L100.0100, L500.4050, L501.9520 ####[facility] [address] [place], [address] Erythrocyte distribution width (RBC) [Ratio] 13.2 % Normal 11.6-14.6 [facility] Comment on above: Performed By: #### L 500.4100, L100.0100, L500.4050, L501.9520 ####[facility] [address] [place], [address] Hematocrit (Bld) [Volume fraction] 36.9 % Low 37-47 [facility] Comment on above: Performed By: #### L 500.4100, L100.0100, L500.4050, L501.9520 ####[facility] [address] [place], [address] Hemoglobin (Bld) [Mass/Vol] 11.7 g/dL Low 12.0-15.0 [facility] Comment on above: Performed By: #### L 500.4100, L100.0100, L500.4050, L501.9520 ####[facility] [address] [place], [address] IG% 0.300 Normal 0.0-0.9 [facility] Comment on above: Result Comment: IG% - Immature Granulocytes (promyelocytes, myelocytes andmetamyelocytes) > 1% indicates that a LEFT SHIFT is Present. Performed By: #### L 500.4100, L100.0100, L500.4050, L501.9520 ####[facility] [address] [place], [address] Lymphocytes/100 WBC (Bld) 24.5 % Normal 19-41 [facility] Comment on above: Performed By: #### L 500.4100, L100.0100, L500.4050, L501.9520 ####[facility] [address] [place], [address] MCH (RBC) [Entitic mass] 30.1 pg Normal 27.0-32.0 [facility] Comment on above: Performed By: #### L 500.4100, L100.0100, L500.4050, L501.9520 ####[facility] [address] [place], [address] MCHC (RBC) [Mass/Vol] 31.7 g/dL Low 32-36 [facility] Comment on above: Performed By: #### L 500.4100, L100.0100, L500.4050, L501.9520 ####[facility] [address] [place], [address] MCV (RBC) [Entitic vol] 94.9 fL Normal 81-99 [facility] Comment on above: Performed By: #### L 500.4100, L100.0100, L500.4050, L501.9520 ####[facility] [address] [place], [address] Monocytes/100 WBC (Bld) 7.1 % Normal 0-10 [facility] Comment on above: Performed By: #### L 500.4100, L100.0100, L500.4050, L501.9520 ####[facility] [address] [place], [address] Neutrophils/100 WBC (Bld) 65.2 % Normal 47-70 [facility] Comment on above: Performed By: #### L 500.4100, L100.0100, L500.4050, L501.9520 ####[facility] [address] [place], [address] Nucleated RBC (Bld) [#/Vol] 0 10*3/uL Normal 0-5 [facility] Comment on above: Performed By: #### L 500.4100, L100.0100, L500.4050, L501.9520 ####[facility] [address] [place], [address] Platelet mean volume (Bld) [Entitic vol] 10.3 fL Normal 6.2-12.0 [facility] Comment on above: Performed By: #### L 500.4100, L100.0100, L500.4050, L501.9520 ####[facility] [address] [place], [address] Platelets (Bld) [#/Vol] 158 10*3/uL Normal 150-450 [facility] Comment on above: Performed By: #### L 500.4100, L100.0100, L500.4050, L501.9520 ####[facility] [address] [place], [address] RBC (Bld) [#/Vol] 3.89 10*6/uL Low 4.2-5.4 [facility] Comment on above: Performed By: #### L 500.4100, L100.0100, L500.4050, L501.9520 ####[facility] [address] [place], [address] RDW SD 46.2 fl High 35.1-43.9 [facility] Comment on above: Performed By: #### L 500.4100, L100.0100, L500.4050, L501.9520 ####[facility] [address] [place], [address] WBC (Bld) [#/Vol] 3.8 10*3/uL Low 4.4-11.0 [facility] Comment on above: Performed By: #### L 500.4100, L100.0100, L500.4050, L501.9520 ####[facility] [address] [place], [address] Comprehensive Metabolic [facility] 02-26-2025 Albumin [Mass/Vol] 3.7 g/dL Normal 3.4-4.8 [facility] Comment on above: Performed By: #### L 500.4100, L100.0100, L500.4050, L501.9520 ####[facility] [address] [place], [address] Albumin/Globulin [Mass ratio] 1.7 {ratio} Normal 0.9-2.4 [facility] Comment on above: Performed By: #### L 500.4100, L100.0100, L500.4050, L501.9520 ####[facility] [address] [place], [address] ALK PHOS 103 U/L Normal 35-104 [facility] Comment on above: Performed By: #### L 500.4100, L100.0100, L500.4050, L501.9520 ####[facility] [address] [place], [address] ALT [Catalytic activity/Vol] 19 U/L Normal <=34 [facility] Comment on above: Performed By: #### L 500.4100, L100.0100, L500.4050, L501.9520 ####[facility] [address] [place], [address] AST [Catalytic activity/Vol] 29 U/L Normal <=31 [facility] Comment on above: Performed By: #### L 500.4100, L100.0100, L500.4050, L501.9520 ####[facility] [address] [place], [address] Bilirubin [Mass/Vol] 0.63 mg/dL Normal 0.00-1.30 [facility] Comment on above: Performed By: #### L 500.4100, L100.0100, L500.4050, L501.9520 ####[facility] [address] [place], [address] BUN/CRE 8.0 RATIO Low 10-20 [facility] Comment on above: Performed By: #### L 500.4100, L100.0100, L500.4050, L501.9520 ####[facility] [address] [place], [address] Calcium [Mass/Vol] 8.5 mg/dL Normal 7.6-11.0 [facility] Comment on above: Performed By: #### L 500.4100, L100.0100, L500.4050, L501.9520 ####[facility] [address] [place], [address] Chloride [Moles/Vol] 102 mmol/L Normal 98-108 [facility] Comment on above: Performed By: #### L 500.4100, L100.0100, L500.4050, L501.9520 ####[facility] [address] [place], [address] CO2 [Moles/Vol] 25.1 mmol/L Normal 21.0-32.0 [facility] Comment on above: Performed By: #### L 500.4100, L100.0100, L500.4050, L501.9520 ####[facility] [address] [place], [address] Creatinine [Mass/Vol] 1.54 mg/dL High 0.70-1.20 [facility] Comment on above: Performed By: #### L 500.4100, L100.0100, L500.4050, L501.9520 ####[facility] [address] [place], [address] GAP 14 Normal 5-15 [facility] Comment on above: Performed By: #### L 500.4100, L100.0100, L500.4050, L501.9520 ####[facility] [address] [place], [address] GFR/1.73 sq M.predicted among non-blacks MDRD (S/P/Bld) [Vol rate/Area] 38 mL/min/{1.73_m2} Low >60 [facility] Comment on above: Result Comment: mL/m in/1.73m2 CKD-EPI Creatinine Equation (2020) Performed By: #### L 500.4100, L100.0100, L500.4050, L501.9520 ####[facility] [address] [place], [address] Globulin (S) [Mass/Vol] 2.2 g/dL Normal 2.2-4.2 [facility] Comment on above: Performed By: #### L 500.4100, L100.0100, L500.4050, L501.9520 ####[facility] [address] [place], [address] Glucose [Mass/Vol] 122 mg/dL High 70-99 [facility] Comment on above: Performed By: #### L 500.4100, L100.0100, L500.4050, L501.9520 ####[facility] [address] [place], [address] Potassium [Moles/Vol] 3.4 mmol/L Normal 3.3-5.1 [facility] Comment on above: Performed By: #### L 500.4100, L100.0100, L500.4050, L501.9520 ####[facility] [address] [place], [address] Sodium [Moles/Vol] 141 mmol/L Normal 133-145 [facility] Comment on above: Performed By: #### L 500.4100, L100.0100, L500.4050, L501.9520 ####[facility] [address] [place], [address] T PROT 5.9 g/dL Normal 5.9-8.4 [facility] Comment on above: Performed By: #### L 500.4100, L100.0100, L500.4050, L501.9520 ####[facility] [address] [place], [address] Urea nitrogen [Mass/Vol] 12 mg/dL Normal 4-19 [facility] Comment on above: Performed By: #### L 500.4100, L100.0100, L500.4050, L501.9520 ####[facility] [address] [place], [address] Ferritinon 02-26-2025 Ferritin [Mass/Vol] 211 ng/mL Normal 22-378 [facility] Comment on above: Order Comment: Order Date: 09/30/24Order Info: [id number] - IBCOrder Info: [id number] - TED Performed By: #### L 503.6550 ####[facility] [address] [place], [address] Iron+Iron Binding Capacityon 02-26-2025 TIBC 212 ug/dL Low 250-450 [facility] Comment on above: Order Comment: Order Date: 09/30/24Order Info: [id number] - IBCOrder Info: [id number] - TED Performed By: #### L 503.6030 ####[facility] [address] [place], [address] Lipid Profileon 02-26-2025 CHOL:HDL 4.[address] [facility] Comment on above: Performed By: #### L 500.4100, L100.0100, L500.4050, L501.9520 ####[facility] [address] [place], [address] Cholesterol [Mass/Vol] 212 mg/dL High <=200 [facility] Comment on above: Result Comment: Chol esterol level, Desirable <200 mg/dLBorderline high cholesterol 200-239 mg/dLHigh cholesterol >=240 mg/dLRecommendations of the NCEP Adult Treatment Panel for thefollowing risk-cutoff thresholds for the [facility]. Performed By: #### L 500.4100, L100.0100, L500.4050, L501.9520 ####[facility] [address] [place], [address] Cholesterol in HDL [Mass/Vol] 47 mg/dL Normal [facility] Comment on above: Result Comment: Sofy onal Cholesterol Education Program (NCEP) guidelines:<40 mg/dL: Low HDL-cholesterol (major risk factor for CHD)>= 60 mg/dL: High HDL-cholesterol (negative risk factor forCHD)HDL-cholesterol is affected by a number of factors, e.g.smoking, exercise, hormones, sex and age. Performed By: #### L 500.4100, L100.0100, L500.4050, L501.9520 ####[facility] [address] [place], [address] Cholesterol in LDL [Mass/Vol] 127 mg/dL Normal [facility] Comment on above: Result Comment: Bord hotjoh=983-793 mg/dL Higher Npfe=980 mg/dL or greaterFriedwald Equation for LDL-C Performed By: #### L 500.4100, L100.0100, L500.4050, L501.9520 ####[facility] [address] [place], [address] Cholesterol in VLDL [Mass/Vol] 38 mg/dL Normal 5-40 [facility] Comment on above: Performed By: #### L 500.4100, L100.0100, L500.4050, L501.9520 ####[facility] [address] [place], [address] Triglyceride [Mass/Vol] 188 mg/dL Normal [facility] Comment on above: Result Comment: The drugs N-Acetylcysteine and Metamizole may falselydepress this assay.Normal range: <150 mg/dLBorderline High: 150-199 mg/dLHigh: 200-499 mg/dLVery High: >500 mg/dL Performed By: #### L 500.4100, L100.0100, L500.4050, L501.9520 ####[facility] [address] [place], [address] Thyroid Stim Hormone (TSH)on 02-26-2025 TSH 0.412 uIU/mL Normal 0.300-4.200 [facility] Comment on above: Performed By: #### L 500.4100, L100.0100, L500.4050, L501.9520 ####[facility] [address] [place], [address] Hepatitis Panel Acuteon 02-02 COMMENT Comment Normal . [facility] Comment on above: Result Comment: Not infected with HCV unless early or acute infection issuspected (which may be delayed in an immunocompromisedindividual), or other evidence exists to indicate HCVinfection.Performed at: [address] [id number] Director: Fidel Fowler PhD, Phone: [phone] Performed By: #### L 500.4050, L501.6710, L300.3900, L3000.0375, L100.0100, L501.9985, L504.2610, L101.9900, L3100.3425, L3400.8000 ####[facility] [address] [place], [place], [address] HEP B CORE,IgM Negative Normal Negative [facility] Comment on above: Performed By: #### L 500.4050, L501.6710, L300.3900, L3000.0375, L100.0100, L501.9985, L504.2610, L101.9900, L3100.3425, L3400.8000 ####[facility] [address] [place], [address] HEP B SURF AG Negative Normal Negative [facility] Comment on above: Performed By: #### L 500.4050, L501.6710, L300.3900, L3000.0375, L100.0100, L501.9985, L504.2610, L101.9900, L3100.3425, L3400.8000 ####[facility] [address] [place], [address] HEP C VIRUS AB Non-Reactive Normal Non Reactive [facility] Comment on above: Performed By: #### L 500.4050, L501.6710, L300.3900, L3000.0375, L100.0100, L501.9985, L504.2610, L101.9900, L3100.3425, L3400.8000 ####[facility] [address] [place], [address] HEPATITIS A-IgM Negative Normal Negative [facility] Comment on above: Result Comment: A ne gative anti-HAV IgM result suggests no recent orcurrent HAV infection. Performed By: #### L 500.4050, L501.6710, L300.3900, L3000.0375, L100.0100, L501.9985, L504.2610, L101.9900, L3100.3425, L3400.8000 ####[facility] [address] [place], [place], [address] LAUREN + Protein Elect, Serumon 02-20-2025 Albumin [Mass/Vol] 3.7 g/dL Normal 2.9-4.4 [facility] Comment on above: Order Comment: N Performed By: #### L 500.4050, L501.6710, L300.3900, L3000.0375, L100.0100, L501.9985, L504.2610, L101.9900, L3100.3425, L3400.8000 ####[facility] [address] [place], [place], [address] Albumin/Globulin [Mass ratio] 1.5 {ratio} Normal 0.7-1.7 [facility] Comment on above: Order Comment: N Performed By: #### L 500.4050, L501.6710, L300.3900, L3000.0375, L100.0100, L501.9985, L504.2610, L101.9900, L3100.3425, L3400.8000 ####[facility] [address] [place], [place], [address] CTQKK-9-JTPL 0.3 g/dL Normal 0.0-0.4 [facility] Comment on above: Order Comment: N Performed By: #### L 500.4050, L501.6710, L300.3900, L3000.0375, L100.0100, L501.9985, L504.2610, L101.9900, L3100.3425, L3400.8000 ####[facility] [address] [place], [address] SCMHG-4-QRBZ 0.9 g/dL Normal 0.4-1.0 [facility] Comment on above: Order Comment: N Performed By: #### L 500.4050, L501.6710, L300.3900, L3000.0375, L100.0100, L501.9985, L504.2610, L101.9900, L3100.3425, L3400.8000 ####[facility] [address] [place], [address] BETA GLOBULIN 1.0 g/dL Normal 0.7-1.3 [facility] Comment on above: Order Comment: N Performed By: #### L 500.4050, L501.6710, L300.3900, L3000.0375, L100.0100, L501.9985, L504.2610, L101.9900, L3100.3425, L3400.8000 ####[facility] [address] [facility] [place], [address] GAMMA GLOBULIN 0.5 g/dL Normal 0.4-1.8 [facility] Comment on above: Order Comment: N Performed By: #### L 500.4050, L501.6710, L300.3900, L3000.0375, L100.0100, L501.9985, L504.2610, L101.9900, L3100.3425, L3400.8000 ####[facility] [address] [facility] [place], [address] Globulin (S) [Mass/Vol] 2.6 g/dL Normal 2.2-3.9 [facility] Comment on above: Order Comment: N Performed By: #### L 500.4050, L501.6710, L300.3900, L3000.0375, L100.0100, L501.9985, L504.2610, L101.9900, L3100.3425, L3400.8000 ####[facility] [address] [place], [address] LAUREN RESULT,S Comment: Normal . [facility] Comment on above: Order Comment: N Result Comment: Pres ence of monoclonal protein is unclear at this time. Suggestrepeat in 3 to 6 months if clinically indicated. Performed By: #### L 500.4050, L501.6710, L300.3900, L3000.0375, L100.0100, L501.9985, L504.2610, L101.9900, L3100.3425, L3400.8000 ####[facility] [address] [place], [address] IMMUNOGLOB A QN 66 mg/dL Low 87-352 [facility] Comment on above: Order Comment: N Performed By: #### L 500.4050, L501.6710, L300.3900, L3000.0375, L100.0100, L501.9985, L504.2610, L101.9900, L3100.3425, L3400.8000 ####[facility] [address] [place], [address] IMMUNOGLOB G QN 437 mg/dL Low 586-1602 [facility] Comment on above: Order Comment: N Performed By: #### L 500.4050, L501.6710, L300.3900, L3000.0375, L100.0100, L501.9985, L504.2610, L101.9900, L3100.3425, L3400.8000 ####[facility] [address] [place], [address] IMMUNOGLOB M QN 39 mg/dL Normal 26-217 [facility] Comment on above: Order Comment: N Performed By: #### L 500.4050, L501.6710, L300.3900, L3000.0375, L100.0100, L501.9985, L504.2610, L101.9900, L3100.3425, L3400.8000 ####[facility] [address] [place], [address] M-Ramesh Not Observed Normal Not Observed [facility] Comment on above: Order Comment: N Performed By: #### L 500.4050, L501.6710, L300.3900, L3000.0375, L100.0100, L501.9985, L504.2610, L101.9900, L3100.3425, L3400.8000 ####[facility] [address] [place], [address] NOTE: Comment Normal . [facility] Comment on above: Order Comment: N Result Comment: Prot ein electrophoresis scan will follow via computer,mail, or tele tech delivery. Performed By: #### L 500.4050, L501.6710, L300.3900, L3000.0375, L100.0100, L501.9985, L504.2610, L101.9900, L3100.3425, L3400.8000 ####[facility] [address] [place], [address] Protein [Mass/Vol] 6.3 g/dL Normal 6.0-8.5 [facility] Comment on above: Order Comment: N Performed By: #### L 500.4050, L501.6710, L300.3900, L3000.0375, L100.0100, L501.9985, L504.2610, L101.9900, L3100.3425, L3400.8000 ####[facility] [address] [place], [address] Quantiferon TB-Gold+on 02-20 QFT MITOGEN HILLARY > 10.[address] [facility] Comment on above: Performed By: #### L 500.4050, L501.6710, L300.3900, L3000.0375, L100.0100, L501.9985, L504.2610, L101.9900, L3100.3425, L3400.8000 ####[facility] [address] [place], [place], [phone] QFT NIL VALUE 0.05 IU/mL Normal . [facility] Comment on above: Performed By: #### L 500.4050, L501.6710, L300.3900, L3000.0375, L100.0100, L501.9985, L504.2610, L101.9900, L3100.3425, L3400.8000 ####[facility] [address] [place], [place], [phone](225) QFT TB GOLD+ Comment Normal . [facility] Comment on above: Result Comment: Adrián [...] L3000.0375, L100.0100, L501.9985, L504.2610, L101.9900, L3100.3425, L3400.8000 ####[facility] [address] [place], [place], [phone] QFT TB POS CRIT Negative Normal Negative [facility] Comment on above: Result Comment: No [...] L3000.0375, L100.0100, L501.9985, L504.2610, L101.9900, L3100.3425, L3400.8000 ####[facility] [address] [place], [place], [phone] QFT TB1+ AG HILLARY 0.06 IU/mL Normal . [facility] Comment on above: Performed By: #### L 500.4050, L501.6710, L300.3900, L3000.0375, L100.0100, L501.9985, L504.2610, L101.9900, L3100.3425, L3400.8000 ####[facility] [address] [place], [address] QFT TB2+ AG HILLARY 0.05 IU/mL Normal . [facility] Comment on above: Performed By: #### L 500.4050, L501.6710, L300.3900, L3000.0375, L100.0100, L501.9985, L504.2610, L101.9900, L3100.3425, L3400.8000 ####[facility] [address] [place], [place], [phone] CBC W/Diff, Automatedon 02-02 Absolute Lymph 0.95 X10 3/uL Normal 0.83-4.51 [facility] Comment on above: Performed By: #### L 500.4050, L501.6710, L300.3900, L3000.0375, L100.0100, L501.9985, L504.2610, L101.9900, L3100.3425, L3400.8000 ####[facility] [address] [place], [place], [phone] Absolute Neut 4.7 X10 3/uL Normal 2.0-7.7 [facility] Comment on above: Performed By: #### L 500.4050, L501.6710, L300.3900, L3000.0375, L100.0100, L501.9985, L504.2610, L101.9900, L3100.3425, L3400.8000 ####[facility] [address] [place], [place], [phone]) Basophils/100 WBC (Bld) 0.3 % Normal 0-1 [facility] Comment on above: Performed By: #### L 500.4050, L501.6710, L300.3900, L3000.0375, L100.0100, L501.9985, L504.2610, L101.9900, L3100.3425, L3400.8000 ####[facility] [address] [place], [phone]) Eosinophils/100 WBC (Bld) 0.3 % Normal 0-5 [facility] Comment on above: Performed By: #### L 500.4050, L501.6710, L300.3900, L3000.0375, L100.0100, L501.9985, L504.2610, L101.9900, L3100.3425, L3400.8000 ####[facility] [address] [place], [phone]) Erythrocyte distribution width (RBC) [Ratio] 13.2 % Normal 11.6-14.6 [facility] Comment on above: Performed By: #### L 500.4050, L501.6710, L300.3900, L3000.0375, L100.0100, L501.9985, L504.2610, L101.9900, L3100.3425, L3400.8000 ####[facility] [address] [place], [phone]) Hematocrit (Bld) [Volume fraction] 39.8 % Normal 37-47 [facility] Comment on above: Performed By: #### L 500.4050, L501.6710, L300.3900, L3000.0375, L100.0100, L501.9985, L504.2610, L101.9900, L3100.3425, L3400.8000 ####[facility] [address] [place], [address] Hemoglobin (Bld) [Mass/Vol] 12.9 g/dL Normal 12.0-15.0 [facility] Comment on above: Performed By: #### L 500.4050, L501.6710, L300.3900, L3000.0375, L100.0100, L501.9985, L504.2610, L101.9900, L3100.3425, L3400.8000 ####[facility] [address] [place], [place], [phone] IG% 0.200 Normal 0.0-0.9 [facility] Comment on above: Result Comment: IG% - Immature Granulocytes (promyelocytes, myelocytes andmetamyelocytes) > 1% indicates that a LEFT SHIFT is Present. Performed By: #### L 500.4050, L501.6710, L300.3900, L3000.0375, L100.0100, L501.9985, L504.2610, L101.9900, L3100.3425, L3400.8000 ####[facility] [address] [place], [address] Lymphocytes/100 WBC (Bld) 15.8 % Low 19-41 [facility] Comment on above: Performed By: #### L 500.4050, L501.6710, L300.3900, L3000.0375, L100.0100, L501.9985, L504.2610, L101.9900, L3100.3425, L3400.8000 ####[facility] [address] [place], [address] MCH (RBC) [Entitic mass] 29.8 pg Normal 27.0-32.0 [facility] Comment on above: Performed By: #### L 500.4050, L501.6710, L300.3900, L3000.0375, L100.0100, L501.9985, L504.2610, L101.9900, L3100.3425, L3400.8000 ####[facility] [address] [place], [address] MCHC (RBC) [Mass/Vol] 32.4 g/dL Normal 32-36 [facility] Comment on above: Performed By: #### L 500.4050, L501.6710, L300.3900, L3000.0375, L100.0100, L501.9985, L504.2610, L101.9900, L3100.3425, L3400.8000 ####[facility] [address] [place], [place], [phone]) MCV (RBC) [Entitic vol] 91.9 fL Normal 81-99 [facility] Comment on above: Performed By: #### L 500.4050, L501.6710, L300.3900, L3000.0375, L100.0100, L501.9985, L504.2610, L101.9900, L3100.3425, L3400.8000 ####[facility] [address] [place], [place], [phone]) Monocytes/100 WBC (Bld) 6.1 % Normal 0-10 [facility] Comment on above: Performed By: #### L 500.4050, L501.6710, L300.3900, L3000.0375, L100.0100, L501.9985, L504.2610, L101.9900, L3100.3425, L3400.8000 ####[facility] [address] [place], [place], [phone](784) Neutrophils/100 WBC (Bld) 77.3 % High 47-70 [facility] Comment on above: Performed By: #### L 500.4050, L501.6710, L300.3900, L3000.0375, L100.0100, L501.9985, L504.2610, L101.9900, L3100.3425, L3400.8000 ####[facility] [address] [place], [place], [phone]) Nucleated RBC (Bld) [#/Vol] 0 10*3/uL Normal 0-5 [facility] Comment on above: Performed By: #### L 500.4050, L501.6710, L300.3900, L3000.0375, L100.0100, L501.9985, L504.2610, L101.9900, L3100.3425, L3400.8000 ####[facility] [address] [place], [place], [phone]) Platelet mean volume (Bld) [Entitic vol] 10.3 fL Normal 6.2-12.0 [facility] Comment on above: Performed By: #### L 500.4050, L501.6710, L300.3900, L3000.0375, L100.0100, L501.9985, L504.2610, L101.9900, L3100.3425, L3400.8000 ####[facility] [address] [place], [place], [phone](540) Platelets (Bld) [#/Vol] 216 10*3/uL Normal 150-450 [facility] Comment on above: Performed By: #### L 500.4050, L501.6710, L300.3900, L3000.0375, L100.0100, L501.9985, L504.2610, L101.9900, L3100.3425, L3400.8000 ####[facility] [address] [place], [address] RBC (Bld) [#/Vol] 4.33 10*6/uL Normal 4.2-5.4 [facility] Comment on above: Performed By: #### L 500.4050, L501.6710, L300.3900, L3000.0375, L100.0100, L501.9985, L504.2610, L101.9900, L3100.3425, L3400.8000 ####[facility] [address] [place], [address] RDW SD 44.3 fl High 35.1-43.9 [facility] Comment on above: Performed By: #### L 500.4050, L501.6710, L300.3900, L3000.0375, L100.0100, L501.9985, L504.2610, L101.9900, L3100.3425, L3400.8000 ####[facility] [address] [place], [place], [phone] WBC (Bld) [#/Vol] 6.0 10*3/uL Normal 4.4-11.0 [facility] Comment on above: Performed By: #### L 500.4050, L501.6710, L300.3900, L3000.0375, L100.0100, L501.9985, L504.2610, L101.9900, L3100.3425, L3400.8000 ####[facility] [address] [place], [place], [phone] CRPon 02-16-2025 C-REACTIVE PROT < 3.00 Normal 0.0-3.0 [facility] Comment on above: Performed By: #### L 500.4050, L501.6710, L300.3900, L3000.0375, L100.0100, L501.9985, L504.2610, L101.9900, L3100.3425, L3400.8000 ####[facility] [address] [place], [address] Comprehensive Metabolic Prof ilon 02-16-2025 Albumin [Mass/Vol] 4.3 g/dL Normal 3.4-4.8 [facility] Comment on above: Performed By: #### L 500.4050, L501.6710, L300.3900, L3000.0375, L100.0100, L501.9985, L504.2610, L101.9900, L3100.3425, L3400.8000 ####[facility] [address] [place], [address] Albumin/Globulin [Mass ratio] 1.8 {ratio} Normal 0.9-2.4 [facility] Comment on above: Performed By: #### L 500.4050, L501.6710, L300.3900, L3000.0375, L100.0100, L501.9985, L504.2610, L101.9900, L3100.3425, L3400.8000 ####[facility] [address] [place], [place], [phone] ALK PHOS 106 U/L High 35-104 [facility] Comment on above: Performed By: #### L 500.4050, L501.6710, L300.3900, L3000.0375, L100.0100, L501.9985, L504.2610, L101.9900, L3100.3425, L3400.8000 ####[facility] [address] [place], [address] ALT [Catalytic activity/Vol] 14 U/L Normal <=34 [facility] Comment on above: Performed By: #### L 500.4050, L501.6710, L300.3900, L3000.0375, L100.0100, L501.9985, L504.2610, L101.9900, L3100.3425, L3400.8000 ####[facility] [address] [place], [address] AST [Catalytic activity/Vol] 24 U/L Normal <=31 [facility] Comment on above: Performed By: #### L 500.4050, L501.6710, L300.3900, L3000.0375, L100.0100, L501.9985, L504.2610, L101.9900, L3100.3425, L3400.8000 ####[facility] [address] [place], [address] Bilirubin [Mass/Vol] 0.99 mg/dL Normal 0.00-1.30 [facility] Comment on above: Performed By: #### L 500.4050, L501.6710, L300.3900, L3000.0375, L100.0100, L501.9985, L504.2610, L101.9900, L3100.3425, L3400.8000 ####[facility] [address] [place], [place], [phone]) BUN/CRE 11.5 RATIO Normal 10-20 [facility] Comment on above: Performed By: #### L 500.4050, L501.6710, L300.3900, L3000.0375, L100.0100, L501.9985, L504.2610, L101.9900, L3100.3425, L3400.8000 ####[facility] [address] [place], [address] Calcium [Mass/Vol] 9.7 mg/dL Normal 7.6-11.0 [facility] Comment on above: Performed By: #### L 500.4050, L501.6710, L300.3900, L3000.0375, L100.0100, L501.9985, L504.2610, L101.9900, L3100.3425, L3400.8000 ####[facility] [address] [place], [address] Chloride [Moles/Vol] 101 mmol/L Normal 98-108 [facility] Comment on above: Performed By: #### L 500.4050, L501.6710, L300.3900, L3000.0375, L100.0100, L501.9985, L504.2610, L101.9900, L3100.3425, L3400.8000 ####[facility] [address] [place], [place], [phone]([phone] CO2 [Moles/Vol] 22.8 mmol/L Normal 21.0-32.0 [facility] Comment on above: Performed By: #### L 500.4050, L501.6710, L300.3900, L3000.0375, L100.0100, L501.9985, L504.2610, L101.9900, L3100.3425, L3400.8000 ####[facility] [address] [place], [place], [phone] Creatinine [Mass/Vol] 1.51 mg/dL High 0.70-1.20 [facility] Comment on above: Performed By: #### L 500.4050, L501.6710, L300.3900, L3000.0375, L100.0100, L501.9985, L504.2610, L101.9900, L3100.3425, L3400.8000 ####[facility] [address] [place], [place], [phone] GAP 14 Normal 5-15 [facility] Comment on above: Performed By: #### L 500.4050, L501.6710, L300.3900, L3000.0375, L100.0100, L501.9985, L504.2610, L101.9900, L3100.3425, L3400.8000 ####[facility] [address] [place], [place], [id number] GFR/1.73 sq M.predicted among non-blacks MDRD (S/P/Bld) [Vol rate/Area] 39 mL/min/{1.73_m2} Low >60 [facility] Comment on above: Result Comment: mL/m in/1.73m2 CKD-EPI Creatinine Equation (2020) Performed By: #### L 500.4050, L501.6710, L300.3900, L3000.0375, L100.0100, L501.9985, L504.2610, L101.9900, L3100.3425, L3400.8000 ####[facility] [address] [place], [address] Globulin (S) [Mass/Vol] 2.3 g/dL Normal 2.2-4.2 [facility] Comment on above: Performed By: #### L 500.4050, L501.6710, L300.3900, L3000.0375, L100.0100, L501.9985, L504.2610, L101.9900, L3100.3425, L3400.8000 ####[facility] [address] [place], [address] Glucose [Mass/Vol] 89 mg/dL Normal 70-99 [facility] Comment on above: Performed By: #### L 500.4050, L501.6710, L300.3900, L3000.0375, L100.0100, L501.9985, L504.2610, L101.9900, L3100.3425, L3400.8000 ####[facility] [address] [place], [address] Potassium [Moles/Vol] 3.1 mmol/L Low 3.3-5.1 [facility] Comment on above: Performed By: #### L 500.4050, L501.6710, L300.3900, L3000.0375, L100.0100, L501.9985, L504.2610, L101.9900, L3100.3425, L3400.8000 ####[facility] [address] [place], [address] Sodium [Moles/Vol] 138 mmol/L Normal 133-145 [facility] Comment on above: Performed By: #### L 500.4050, L501.6710, L300.3900, L3000.0375, L100.0100, L501.9985, L504.2610, L101.9900, L3100.3425, L3400.8000 ####[facility] [address] [place], [address] T PROT 6.6 g/dL Normal 5.9-8.4 [facility] Comment on above: Performed By: #### L 500.4050, L501.6710, L300.3900, L3000.0375, L100.0100, L501.9985, L504.2610, L101.9900, L3100.3425, L3400.8000 ####[facility] [address] [place], [place], [address] Urea nitrogen [Mass/Vol] 17 mg/dL Normal 4-19 [facility] Comment on above: Performed By: #### L 500.4050, L501.6710, L300.3900, L3000.0375, L100.0100, L501.9985, L504.2610, L101.9900, L3100.3425, L3400.8000 ####[facility] [address] [place], [place], [address] Erythrocyte Sed Rateon 02-16 SED RATE 10 mm/hr Normal 0-30 [facility] Comment on above: Performed By: #### L 500.4050, L501.6710, L300.3900, L3000.0375, L100.0100, L501.9985, L504.2610, L101.9900, L3100.3425, L3400.8000 ####[facility] [address] [place], [address] Gastroenterology Visit Repor ton 02-16-2025 Gastroenterology Visit Report Normal [facility] Hemoglobin A1con 02-16-2025 HbA1c (Bld) [Mass fraction] 4.5 % Normal <=5.6 [facility] Comment on above: Result Comment: Norm al < 5.7 % Prediabetic 5.7 - 6.4 % Diabetic >or= 6.5 % Please note range changes. Performed By: #### L 500.4050, L501.6710, L300.3900, L3000.0375, L100.0100, L501.9985, L504.2610, L101.9900, L3100.3425, L3400.8000 ####[facility] [address] [place], [address] LDHon 02-16-2025 LDH 200 U/L Normal 84-246 [facility] Comment on above: Order Comment: 1 Performed By: #### L 500.4050, L501.6710, L300.3900, L3000.0375, L100.0100, L501.9985, L504.2610, L101.9900, L3100.3425, L3400.8000 ####[facility] [address] [place], [address] Prothrombin Time w/INRon INR Coag (PPP) [Relative time] 0.9 {INR} Normal [facility] Comment on above: Performed By: #### L 500.4050, L501.6710, L300.3900, L3000.0375, L100.0100, L501.9985, L504.2610, L101.9900, L3100.3425, L3400.8000 ####[facility] [address] [place], [address] PT Coag (PPP) [Time] 12.6 s Normal 11.7-14.9 [facility] Comment on above: Performed By: #### L 500.4050, L501.6710, L300.3900, L3000.0375, L100.0100, L501.9985, L504.2610, L101.9900, L3100.3425, L3400.8000 ####[facility] [address] [place], [address] 12 Lead EKGon 01-05-2025 [address] [facility] Brain/Head without Contrasto n 01-05-2025 Brain/Head without Contrast Normal [facility] CBC W/Diff, Automatedon 08- Absolute Lymph 0.63 X10 3/uL Low 0.83-4.51 [facility] Comment on above: Performed By: #### L 500.4050, L101.9900, L100.0100 ####[facility] [address] [place], [address] Absolute Neut 2.4 X10 3/uL Normal 2.0-7.7 [facility] Comment on above: Performed By: #### L 500.4050, L101.9900, L100.0100 ####[facility] [address] [place], [address] Basophils/100 WBC (Bld) 0.6 % Normal 0-1 [facility] Comment on above: Performed By: #### L 500.4050, L101.9900, L100.0100 ####[facility] [address] [place], [address] Eosinophils/100 WBC (Bld) 0.9 % Normal 0-5 [facility] Comment on above: Performed By: #### L 500.4050, L101.9900, L100.0100 ####[facility] [address] [place], [address] Erythrocyte distribution width (RBC) [Ratio] 13.6 % Normal 11.6-14.6 [facility] Comment on above: Performed By: #### L 500.4050, L101.9900, L100.0100 ####[facility] [address] [place], [address] Hematocrit (Bld) [Volume fraction] 30.7 % Low 37-47 [facility] Comment on above: Performed By: #### L 500.4050, L101.9900, L100.0100 ####[facility] [address] [place], [address] Hemoglobin (Bld) [Mass/Vol] 9.6 g/dL Low 12.0-15.0 [facility] Comment on above: Performed By: #### L 500.4050, L101.9900, L100.0100 ####[facility] [address] [place], [address] IG% 0.600 Normal 0.0-0.9 [facility] Comment on above: Result Comment: IG% - Immature Granulocytes (promyelocytes, myelocytes andmetamyelocytes) > 1% indicates that a LEFT SHIFT is Present. Performed By: #### L 500.4050, L101.9900, L100.0100 ####[facility] [address] [place], [address] Lymphocytes/100 WBC (Bld) 17.9 % Low 19-41 [facility] Comment on above: Performed By: #### L 500.4050, L101.9900, L100.0100 ####[facility] [address] [place], [address] MCH (RBC) [Entitic mass] 30.4 pg Normal 27.0-32.0 [facility] Comment on above: Performed By: #### L 500.4050, L101.9900, L100.0100 ####[facility] [address] [place], [address] MCHC (RBC) [Mass/Vol] 31.3 g/dL Low 32-36 [facility] Comment on above: Performed By: #### L 500.4050, L101.9900, L100.0100 ####[facility] [address] [place], [address] MCV (RBC) [Entitic vol] 97.2 fL Normal 81-99 [facility] Comment on above: Performed By: #### L 500.4050, L101.9900, L100.0100 ####[facility] [address] [place], [address] Monocytes/100 WBC (Bld) 11.1 % High 0-10 [facility] Comment on above: Performed By: #### L 500.4050, L101.9900, L100.0100 ####[facility] [address] [place], [address] Neutrophils/100 WBC (Bld) 68.9 % Normal 47-70 [facility] Comment on above: Performed By: #### L 500.4050, L101.9900, L100.0100 ####[facility] [address] [place], [address] Nucleated RBC (Bld) [#/Vol] 0 10*3/uL Normal 0-5 [facility] Comment on above: Performed By: #### L 500.4050, L101.9900, L100.0100 ####[facility] [address] [place], [address] Platelet mean volume (Bld) [Entitic vol] 10.0 fL Normal 6.2-12.0 [facility] Comment on above: Performed By: #### L 500.4050, L101.9900, L100.0100 ####[facility] [address] [place], [address] Platelets (Bld) [#/Vol] 138 10*3/uL Low 150-450 [facility] Comment on above: Performed By: #### L 500.4050, L101.9900, L100.0100 ####[facility] [address] [place], [address] RBC (Bld) [#/Vol] 3.16 10*6/uL Low 4.2-5.4 [facility] Comment on above: Performed By: #### L 500.4050, L101.9900, L100.0100 ####[facility] [address] [place], [address] RDW SD 48.4 fl High 35.1-43.9 [facility] Comment on above: Performed By: #### L 500.4050, L101.9900, L100.0100 ####[facility] [address] [place], [address] WBC (Bld) [#/Vol] 3.5 10*3/uL Low 4.4-11.0 [facility] Comment on above: Performed By: #### L 500.4050, L101.9900, L100.0100 ####[facility] [address] [place], [address] CTA Head AND Neck W/ Contras ton 01-05-2025 CTA Head AND Neck W/ Contrast Normal [facility] Chest PA and Lateralon 01-05 Chest PA and Lateral Normal [facility] Comprehensive Metabolic Prof ilon 01-05-2025 Albumin [Mass/Vol] 4.1 g/dL Normal 3.4-4.8 [facility] Comment on above: Performed By: #### L 500.4050, L101.9900, L100.0100 ####[facility] [address] [place], [address] Albumin/Globulin [Mass ratio] 2.0 {ratio} Normal 0.9-2.4 [facility] Comment on above: Performed By: #### L 500.4050, L101.9900, L100.0100 ####[facility] [address] [place], [address] ALK PHOS 110 U/L High 35-104 [facility] Comment on above: Performed By: #### L 500.4050, L101.9900, L100.0100 ####[facility] [address] [place], [address] ALT [Catalytic activity/Vol] 15 U/L Normal <=34 [facility] Comment on above: Performed By: #### L 500.4050, L101.9900, L100.0100 ####[facility] [address] [place], [address] AST [Catalytic activity/Vol] 16 U/L Normal <=31 [facility] Comment on above: Performed By: #### L 500.4050, L101.9900, L100.0100 ####[facility] [address] [place], [address] Bilirubin [Mass/Vol] 0.82 mg/dL Normal 0.00-1.30 [facility] Comment on above: Performed By: #### L 500.4050, L101.9900, L100.0100 ####[facility] [address] [place], [address] BUN/CRE 15.7 RATIO Normal 10-20 [facility] Comment on above: Performed By: #### L 500.4050, L101.9900, L100.0100 ####[facility] [address] [place], [address] Calcium [Mass/Vol] 9.3 mg/dL Normal 7.6-11.0 [facility] Comment on above: Performed By: #### L 500.4050, L101.9900, L100.0100 ####[facility] [address] [place], [address] Chloride [Moles/Vol] 100 mmol/L Normal 98-108 [facility] Comment on above: Performed By: #### L 500.4050, L101.9900, L100.0100 ####[facility] [address] [place], [address] CO2 [Moles/Vol] 32.0 mmol/L Normal 21.0-32.0 [facility] Comment on above: Performed By: #### L 500.4050, L101.9900, L100.0100 ####[facility] [address] [place], [address] Creatinine [Mass/Vol] 1.21 mg/dL High 0.70-1.20 [facility] Comment on above: Performed By: #### L 500.4050, L101.9900, L100.0100 ####[facility] [address] [place], [address] GAP 9 Normal 5-15 [facility] Comment on above: Performed By: #### L 500.4050, L101.9900, L100.0100 ####[facility] [address] [place], [address] GFR/1.73 sq M.predicted among non-blacks MDRD (S/P/Bld) [Vol rate/Area] 50 mL/min/{1.73_m2} Low >60 [facility] Comment on above: Result Comment: mL/m in/1.73m2 CKD-EPI Creatinine Equation (2020) Performed By: #### L 500.4050, L101.9900, L100.0100 ####[facility] [address] [place], [address] Globulin (S) [Mass/Vol] 2.1 g/dL Low 2.2-4.2 [facility] Comment on above: Performed By: #### L 500.4050, L101.9900, L100.0100 ####[facility] [address] [place], [address] Glucose [Mass/Vol] 124 mg/dL High 70-99 [facility] Comment on above: Performed By: #### L 500.4050, L101.9900, L100.0100 ####[facility] [address] [place], [address] Potassium [Moles/Vol] 3.5 mmol/L Normal 3.3-5.1 [facility] Comment on above: Performed By: #### L 500.4050, L101.9900, L100.0100 ####[facility] [address] [place], [address] Sodium [Moles/Vol] 141 mmol/L Normal 133-145 [facility] Comment on above: Performed By: #### L 500.4050, L101.9900, L100.0100 ####[facility] [address] [place], [address] T PROT 6.1 g/dL Normal 5.9-8.4 [facility] Comment on above: Performed By: #### L 500.4050, L101.9900, L100.0100 ####[facility] [address] [place], [address] Urea nitrogen [Mass/Vol] 19 mg/dL Normal 4-19 [facility] Comment on above: Performed By: #### L 500.4050, L101.9900, L100.0100 ####[facility] [address] [place], [address] Emergency Department Summary on 01-05-2025 Emergency Department Summary Normal [facility] Erythrocyte Sed Rateon 01-05 SED RATE 8 mm/hr Normal 0-30 [facility] Comment on above: Performed By: #### L 500.4050, L101.9900, L100.0100 ####[facility] [address] [place], [address] Basic Metabolic Profile (BMP )on 12-16-2024 BUN Normal 4-19 [facility] Comment on above: Result Comment: Canc elled via OM: Order cancelled - Patient discharged Performed By: #### L 100.0100, L500.2500 ####[facility] [address] [place], [address] BUN/CRE Normal 10-20 [facility] Comment on above: Result Comment: Canc elled via OM: Order cancelled - Patient discharged Performed By: #### L 100.0100, L500.2500 ####[facility] [address] [place], [address] Calcium Normal 7.6-11.0 [facility] Comment on above: Result Comment: Canc elled via OM: Order cancelled - Patient discharged Performed By: #### L 100.0100, L500.2500 ####[facility] [address] [place], [address] CL Normal 98-108 [facility] Comment on above: Result Comment: Canc elled via OM: Order cancelled - Patient discharged Performed By: #### L 100.0100, L500.2500 ####[facility] [address] [place], [address] CO2 Normal 21.0-32.0 [facility] Comment on above: Result Comment: Canc elled via OM: Order cancelled - Patient discharged Performed By: #### L 100.0100, L500.2500 ####[facility] [address] [place], [address] CREAT,SERUM Normal 0.70-1.20 [facility] Comment on above: Result Comment: Canc elled via OM: Order cancelled - Patient discharged Performed By: #### L 100.0100, L500.2500 ####[facility] [address] [place], [address] eGFR Normal >60 [facility] Comment on above: Result Comment: Canc elled via OM: Order cancelled - Patient discharged Performed By: #### L 100.0100, L500.2500 ####[facility] [address] [place], [address] GAP Normal 5-15 [facility] Comment on above: Result Comment: Canc elled via OM: Order cancelled - Patient discharged Performed By: #### L 100.0100, L500.2500 ####[facility] [address] [place], [address] GLU Normal 70-99 [facility] Comment on above: Result Comment: Canc elled via OM: Order cancelled - Patient discharged Performed By: #### L 100.0100, L500.2500 ####[facility] [address] [place], [address] Potassium Normal 3.3-5.1 [facility] Comment on above: Result Comment: Canc elled via OM: Order cancelled - Patient discharged Performed By: #### L 100.0100, L500.2500 ####[facility] [address] [place], [address] Basic Metabolic Profile (BMP) Normal 133-145 [facility] Comment on above: Result Comment: Canc elled via OM: Order cancelled - Patient discharged Performed By: #### L 100.0100, L500.2500 ####[facility] [address] [place], [address] CBC W/Diff, Automatedon 07-1 Absolute Neut Normal 2.0-7.7 [facility] Comment on above: Result Comment: Canc elled via OM: Order cancelled - Patient discharged Performed By: #### L 100.0100, L500.2500 ####[facility] [address] [place], [address] HCT Normal 37-47 [facility] Comment on above: Result Comment: Canc elled via OM: Order cancelled - Patient discharged Performed By: #### L 100.0100, L500.2500 ####[facility] [address] [place], [address] HGB Normal 12.0-15.0 [facility] Comment on above: Result Comment: Canc elled via OM: Order cancelled - Patient discharged Performed By: #### L 100.0100, L500.2500 ####[facility] [address] [place], [address] MCH Normal 27.0-32.0 [facility] Comment on above: Result Comment: Canc elled via OM: Order cancelled - Patient discharged Performed By: #### L 100.0100, L500.2500 ####[facility] [address] [place], [address] MCHC Normal 32-36 [facility] Comment on above: Result Comment: Canc elled via OM: Order cancelled - Patient discharged Performed By: #### L 100.0100, L500.2500 ####[facility] [address] [place], [address] MCV Normal 81-99 [facility] Comment on above: Result Comment: Canc elled via OM: Order cancelled - Patient discharged Performed By: #### L 100.0100, L500.2500 ####[facility] [address] [place], [address] NEUT% Normal 47-70 [facility] Comment on above: Result Comment: Canc elled via OM: Order cancelled - Patient discharged Performed By: #### L 100.0100, L500.2500 ####[facility] [address] [place], [address] PLT Normal 150-450 [facility] Comment on above: Result Comment: Canc elled via OM: Order cancelled - Patient discharged Performed By: #### L 100.0100, L500.2500 ####[facility] [address] [place], [address] RBC Normal 4.2-5.4 [facility] Comment on above: Result Comment: Canc elled via OM: Order cancelled - Patient discharged Performed By: #### L 100.0100, L500.2500 ####[facility] [address] [place], [address] RDW CV Normal 11.6-14.6 [facility] Comment on above: Result Comment: Canc elled via OM: Order cancelled - Patient discharged Performed By: #### L 100.0100, L500.2500 ####[facility] [address] [place], [address] RDW SD Normal 35.1-43.9 [facility] Comment on above: Result Comment: Canc elled via OM: Order cancelled - Patient discharged Performed By: #### L 100.0100, L500.2500 ####[facility] [address] [place], [address] WBC Normal 4.4-11.0 [facility] Comment on above: Result Comment: Canc elled via OM: Order cancelled - Patient discharged Performed By: #### L 100.0100, L500.2500 ####[facility] [address] [place], [address] Basic Metabolic Profile (BMP )on 12-09-2024 BUN Normal 4-19 [facility] Comment on above: Result Comment: Canc elled via OM: Order cancelled - Patient discharged Performed By: #### L 100.0100, L500.2500 ####[facility] [address] [place], [address] BUN/CRE Normal 10-20 [facility] Comment on above: Result Comment: Canc elled via OM: Order cancelled - Patient discharged Performed By: #### L 100.0100, L500.2500 ####[facility] [address] [place], [address] Calcium Normal 7.6-11.0 [facility] Comment on above: Result Comment: Canc elled via OM: Order cancelled - Patient discharged Performed By: #### L 100.0100, L500.2500 ####[facility] [address] [place], [address] CL Normal 98-108 [facility] Comment on above: Result Comment: Canc elled via OM: Order cancelled - Patient discharged Performed By: #### L 100.0100, L500.2500 ####[facility] [address] [place], [address] CO2 Normal 21.0-32.0 [facility] Comment on above: Result Comment: Canc elled via OM: Order cancelled - Patient discharged Performed By: #### L 100.0100, L500.2500 ####[facility] [address] [place], [address] CREAT,SERUM Normal 0.70-1.20 [facility] Comment on above: Result Comment: Canc elled via OM: Order cancelled - Patient discharged Performed By: #### L 100.0100, L500.2500 ####[facility] [address] [place], [address] eGFR Normal >60 [facility] Comment on above: Result Comment: Canc elled via OM: Order cancelled - Patient discharged Performed By: #### L 100.0100, L500.2500 ####[facility] [address] [place], [address] GAP Normal 5-15 [facility] Comment on above: Result Comment: Canc elled via OM: Order cancelled - Patient discharged Performed By: #### L 100.0100, L500.2500 ####[facility] [address] [place], [address] GLU Normal 70-99 [facility] Comment on above: Result Comment: Canc elled via OM: Order cancelled - Patient discharged Performed By: #### L 100.0100, L500.2500 ####[facility] [address] [place], [address] Potassium Normal 3.3-5.1 [facility] Comment on above: Result Comment: Canc elled via OM: Order cancelled - Patient discharged Performed By: #### L 100.0100, L500.2500 ####[facility] [address] [place], [address] Basic Metabolic Profile (BMP) Normal 133-145 [facility] Comment on above: Result Comment: Canc elled via OM: Order cancelled - Patient discharged Performed By: #### L 100.0100, L500.2500 ####[facility] [address] [place], [address] CBC W/Diff, Automatedon 07-0 8-2024 Absolute Neut Normal 2.0-7.7 [facility] Comment on above: Result Comment: Canc elled via OM: Order cancelled - Patient discharged Performed By: #### L 100.0100, L500.2500 ####[facility] [address] [place], [address] HCT Normal 37-47 [facility] Comment on above: Result Comment: Canc elled via OM: Order cancelled - Patient discharged Performed By: #### L 100.0100, L500.2500 ####[facility] [address] [place], [address] HGB Normal 12.0-15.0 [facility] Comment on above: Result Comment: Canc elled via OM: Order cancelled - Patient discharged Performed By: #### L 100.0100, L500.2500 ####[facility] [address] [place], [address] MCH Normal 27.0-32.0 [facility] Comment on above: Result Comment: Canc elled via OM: Order cancelled - Patient discharged Performed By: #### L 100.0100, L500.2500 ####[facility] [address] [place], [address] MCHC Normal 32-36 [facility] Comment on above: Result Comment: Canc elled via OM: Order cancelled - Patient discharged Performed By: #### L 100.0100, L500.2500 ####[facility] [address] [place], [address] MCV Normal 81-99 [facility] Comment on above: Result Comment: Canc elled via OM: Order cancelled - Patient discharged Performed By: #### L 100.0100, L500.2500 ####[facility] [address] [place], [address] NEUT% Normal 47-70 [facility] Comment on above: Result Comment: Canc elled via OM: Order cancelled - Patient discharged Performed By: #### L 100.0100, L500.2500 ####[facility] [address] [place], [address] PLT Normal 150-450 [facility] Comment on above: Result Comment: Canc elled via OM: Order cancelled - Patient discharged Performed By: #### L 100.0100, L500.2500 ####[facility] [address] [place], [address] RBC Normal 4.2-5.4 [facility] Comment on above: Result Comment: Canc elled via OM: Order cancelled - Patient discharged Performed By: #### L 100.0100, L500.2500 ####[facility] [address] [place], [address] RDW CV Normal 11.6-14.6 [facility] Comment on above: Result Comment: Canc elled via OM: Order cancelled - Patient discharged Performed By: #### L 100.0100, L500.2500 ####[facility] [address] [place], [address] RDW SD Normal 35.1-43.9 [facility] Comment on above: Result Comment: Canc elled via OM: Order cancelled - Patient discharged Performed By: #### L 100.0100, L500.2500 ####[facility] [address] [place], [address] WBC Normal 4.4-11.0 [facility] Comment on above: Result Comment: Canc elled via OM: Order cancelled - Patient discharged Performed By: #### L 100.0100, L500.2500 ####[facility] [address] [place], [address] CBC W/Diff, Automatedon 07-0 3-2025 Absolute Lymph 1.35 X10 3/uL Normal 0.83-4.51 [facility] Comment on above: Performed By: #### L 3890.6301, L501.9520, L100.0100, L500.4050, L500.4100, L506.1001 ####[facility] [address] [place], [address] Absolute Neut 3.2 X10 3/uL Normal 2.0-7.7 [facility] Comment on above: Performed By: #### L 3890.6301, L501.9520, L100.0100, L500.4050, L500.4100, L506.1001 ####[facility] [address] [place], [address] Basophils/100 WBC (Bld) 0.6 % Normal 0-1 [facility] Comment on above: Performed By: #### L 3890.6301, L501.9520, L100.0100, L500.4050, L500.4100, L506.1001 ####[facility] [address] [place], [address] Eosinophils/100 WBC (Bld) 1.8 % Normal 0-5 [facility] Comment on above: Performed By: #### L 3890.6301, L501.9520, L100.0100, L500.4050, L500.4100, L506.1001 ####[facility] [address] [place], [address] Erythrocyte distribution width (RBC) [Ratio] 15.8 % High 11.6-14.6 [facility] Comment on above: Performed By: #### L 3890.6301, L501.9520, L100.0100, L500.4050, L500.4100, L506.1001 ####[facility] [address] [place], [address] Hematocrit (Bld) [Volume fraction] 30.0 % Low 37-47 [facility] Comment on above: Performed By: #### L 3890.6301, L501.9520, L100.0100, L500.4050, L500.4100, L506.1001 ####[facility] [address] [place], [address] Hemoglobin (Bld) [Mass/Vol] 9.1 g/dL Low 12.0-15.0 [facility] Comment on above: Performed By: #### L 3890.6301, L501.9520, L100.0100, L500.4050, L500.4100, L506.1001 ####[facility] [address] [place], [address] IG% 0.400 Normal 0.0-0.9 [facility] Comment on above: Result Comment: IG% - Immature Granulocytes (promyelocytes, myelocytes andmetamyelocytes) > 1% indicates that a LEFT SHIFT is Present. Performed By: #### L 3890.6301, L501.9520, L100.0100, L500.4050, L500.4100, L506.1001 ####[facility] [address] [place], [address] Lymphocytes/100 WBC (Bld) 26.4 % Normal 19-41 [facility] Comment on above: Performed By: #### L 3890.6301, L501.9520, L100.0100, L500.4050, L500.4100, L506.1001 ####[facility] [address] [place], [address] MCH (RBC) [Entitic mass] 29.2 pg Normal 27.0-32.0 [facility] Comment on above: Performed By: #### L 3890.6301, L501.9520, L100.0100, L500.4050, L500.4100, L506.1001 ####[facility] [address] [place], [address] MCHC (RBC) [Mass/Vol] 30.3 g/dL Low 32-36 [facility] Comment on above: Performed By: #### L 3890.6301, L501.9520, L100.0100, L500.4050, L500.4100, L506.1001 ####[facility] [address] [place], [address] MCV (RBC) [Entitic vol] 96.2 fL Normal 81-99 [facility] Comment on above: Performed By: #### L 3890.6301, L501.9520, L100.0100, L500.4050, L500.4100, L506.1001 ####[facility] [address] [place], [address] Monocytes/100 WBC (Bld) 8.6 % Normal 0-10 [facility] Comment on above: Performed By: #### L 3890.6301, L501.9520, L100.0100, L500.4050, L500.4100, L506.1001 ####[facility] [address] [place], [address] Neutrophils/100 WBC (Bld) 62.2 % Normal 47-70 [facility] Comment on above: Performed By: #### L 3890.6301, L501.9520, L100.0100, L500.4050, L500.4100, L506.1001 ####[facility] [address] [place], [address] Nucleated RBC (Bld) [#/Vol] 0 10*3/uL Normal 0-5 [facility] Comment on above: Performed By: #### L 3890.6301, L501.9520, L100.0100, L500.4050, L500.4100, L506.1001 ####[facility] [address] [place], [address] Platelet mean volume (Bld) [Entitic vol] 9.8 fL Normal 6.2-12.0 [facility] Comment on above: Performed By: #### L 3890.6301, L501.9520, L100.0100, L500.4050, L500.4100, L506.1001 ####[facility] [address] [place], [address] Platelets (Bld) [#/Vol] 148 10*3/uL Low 150-450 [facility] Comment on above: Performed By: #### L 3890.6301, L501.9520, L100.0100, L500.4050, L500.4100, L506.1001 ####[facility] [address] [place], [address] RBC (Bld) [#/Vol] 3.12 10*6/uL Low 4.2-5.4 [facility] Comment on above: Performed By: #### L 3890.6301, L501.9520, L100.0100, L500.4050, L500.4100, L506.1001 ####[facility] [address] [place], [address] RDW SD 55.5 fl High 35.1-43.9 [facility] Comment on above: Performed By: #### L 3890.6301, L501.9520, L100.0100, L500.4050, L500.4100, L506.1001 ####[facility] [address] [place], [address] WBC (Bld) [#/Vol] 5.1 10*3/uL Normal 4.4-11.0 [facility] Comment on above: Performed By: #### L 3890.6301, L501.9520, L100.0100, L500.4050, L500.4100, L506.1001 ####[facility] [address] [place], [address] Comprehensive Metabolic Prof ilon 12-04-2024 Albumin [Mass/Vol] 3.9 g/dL Normal 3.4-4.8 [facility] Comment on above: Performed By: #### L 3890.6301, L501.9520, L100.0100, L500.4050, L500.4100, L506.1001 ####[facility] [address] [place], [address] Albumin/Globulin [Mass ratio] 2.1 {ratio} Normal 0.9-2.4 [facility] Comment on above: Performed By: #### L 3890.6301, L501.9520, L100.0100, L500.4050, L500.4100, L506.1001 ####[facility] [address] [place], [address] ALK PHOS 134 U/L High 35-104 [facility] Comment on above: Performed By: #### L 3890.6301, L501.9520, L100.0100, L500.4050, L500.4100, L506.1001 ####[facility] [address] [place], [address] ALT [Catalytic activity/Vol] 24 U/L Normal <=34 [facility] Comment on above: Performed By: #### L 3890.6301, L501.9520, L100.0100, L500.4050, L500.4100, L506.1001 ####[facility] [address] [place], [address] AST [Catalytic activity/Vol] 30 U/L Normal <=31 [facility] Comment on above: Performed By: #### L 3890.6301, L501.9520, L100.0100, L500.4050, L500.4100, L506.1001 ####[facility] [address] [place], [address] Bilirubin [Mass/Vol] 1.05 mg/dL Normal 0.00-1.30 [facility] Comment on above: Performed By: #### L 3890.6301, L501.9520, L100.0100, L500.4050, L500.4100, L506.1001 ####[facility] [address] [place], [address] BUN/CRE 15.8 RATIO Normal 10-20 [facility] Comment on above: Performed By: #### L 3890.6301, L501.9520, L100.0100, L500.4050, L500.4100, L506.1001 ####[facility] [address] [place], [address] Calcium [Mass/Vol] 9.2 mg/dL Normal 7.6-11.0 [facility] Comment on above: Performed By: #### L 3890.6301, L501.9520, L100.0100, L500.4050, L500.4100, L506.1001 ####[facility] [address] [place], [address] Chloride [Moles/Vol] 104 mmol/L Normal 98-108 [facility] Comment on above: Performed By: #### L 3890.6301, L501.9520, L100.0100, L500.4050, L500.4100, L506.1001 ####[facility] [address] [place], [address] CO2 [Moles/Vol] 27.7 mmol/L Normal 21.0-32.0 [facility] Comment on above: Performed By: #### L 3890.6301, L501.9520, L100.0100, L500.4050, L500.4100, L506.1001 ####[facility] [address] [place], [address] Creatinine [Mass/Vol] 1.58 mg/dL High 0.70-1.20 [facility] Comment on above: Performed By: #### L 3890.6301, L501.9520, L100.0100, L500.4050, L500.4100, L506.1001 ####[facility] [address] [place], [address] GAP 9 Normal 5-15 [facility] Comment on above: Performed By: #### L 3890.6301, L501.9520, L100.0100, L500.4050, L500.4100, L506.1001 ####[facility] [address] [place], [address] GFR/1.73 sq M.predicted among non-blacks MDRD (S/P/Bld) [Vol rate/Area] 37 mL/min/{1.73_m2} Low >60 [facility] Comment on above: Result Comment: mL/m in/1.73m2 CKD-EPI Creatinine Equation (2020) Performed By: #### L 3890.6301, L501.9520, L100.0100, L500.4050, L500.4100, L506.1001 ####[facility] [address] [place], [address] Globulin (S) [Mass/Vol] 1.9 g/dL Low 2.2-4.2 [facility] Comment on above: Performed By: #### L 3890.6301, L501.9520, L100.0100, L500.4050, L500.4100, L506.1001 ####[facility] [address] [place], [address] Glucose [Mass/Vol] 104 mg/dL High 70-99 [facility] Comment on above: Performed By: #### L 3890.6301, L501.9520, L100.0100, L500.4050, L500.4100, L506.1001 ####[facility] [address] [place], [address] Potassium [Moles/Vol] 4.0 mmol/L Normal 3.3-5.1 [facility] Comment on above: Performed By: #### L 3890.6301, L501.9520, L100.0100, L500.4050, L500.4100, L506.1001 ####[facility] [address] [place], [address] Sodium [Moles/Vol] 141 mmol/L Normal 133-145 [facility] Comment on above: Performed By: #### L 3890.6301, L501.9520, L100.0100, L500.4050, L500.4100, L506.1001 ####[facility] [address] [place], [address] T PROT 5.8 g/dL Low 5.9-8.4 [facility] Comment on above: Performed By: #### L 3890.6301, L501.9520, L100.0100, L500.4050, L500.4100, L506.1001 ####[facility] [address] [place], [place], [id number] Urea nitrogen [Mass/Vol] 25 mg/dL High 4-19 [facility] Comment on above: Performed By: #### L 3890.6301, L501.9520, L100.0100, L500.4050, L500.4100, L506.1001 ####[facility] [address] [place], [place], Hepatitis C Antibodyon 12-04 Hepatitis C Ab Non-Reactive Normal Nonreactive [facility] Comment on above: Result Comment: Reac tive: Presumptive evidence of antibodies to HCV. [facility] for supplemental testing.Non-Reactive: Antibodies to HCV were not detected; does notexclude the possibility of exposure to HCVReactive Results are presumptive evidence of antibodies toHCV. Follow CDC recommendations for supplemental testing.Order confirmation testing: HCV Quant by PCR testing -HCVPCR #[id number] Non Reactive: < 0.8 Equivocal: >/= 0.8 to < 1.0 Reactive: >/= 1.0The CDC requires that a reactive/equivocal HCV antibodyresult be sent out for confirmation. HCV Quant by PCRtesting. Performed By: #### L 3890.6301, L501.9520, L100.0100, L500.4050, L500.4100, L506.1001 ####[facility] [address] [place], [address] Lipid Profileon 12-04-2024 CHOL:HDL 1.[address] [facility] Comment on above: Performed By: #### L 3890.6301, L501.9520, L100.0100, L500.4050, L500.4100, L506.1001 ####[facility] [address] [place], [address] Cholesterol [Mass/Vol] 138 mg/dL Normal <=200 [facility] Comment on above: Result Comment: Chol esterol level, Desirable <200 mg/dLBorderline high cholesterol 200-239 mg/dLHigh cholesterol >=240 mg/dLRecommendations of the NCEP Adult Treatment Panel for thefollowing risk-cutoff thresholds for the [place] Americanpulation. Performed By: #### L 3890.6301, L501.9520, L100.0100, L500.4050, L500.4100, L506.1001 ####[facility] [address] [place], [address] Cholesterol in HDL [Mass/Vol] 69 mg/dL Normal [facility] Comment on above: Result Comment: Sofy onal Cholesterol Education Program (NCEP) guidelines:<40 mg/dL: Low HDL-cholesterol (major risk factor for CHD)>= 60 mg/dL: High HDL-cholesterol (negative risk factor forCHD)HDL-cholesterol is affected by a number of factors, e.g.smoking, exercise, hormones, sex and age. Performed By: #### L 3890.6301, L501.9520, L100.0100, L500.4050, L500.4100, L506.1001 ####[facility] [address] [place], [address] Cholesterol in LDL [Mass/Vol] 42 mg/dL Normal [facility] Comment on above: Result Comment: Bord bqpxgt=877-118 mg/dL Higher Vnjb=464 mg/dL or greater Performed By: #### L 3890.6301, L501.9520, L100.0100, L500.4050, L500.4100, L506.1001 ####[facility] [address] [place], [address] Cholesterol in VLDL [Mass/Vol] 27 mg/dL Normal 5-40 [facility] Comment on above: Performed By: #### L 3890.6301, L501.9520, L100.0100, L500.4050, L500.4100, L506.1001 ####[facility] [address] [place], [address] Triglyceride [Mass/Vol] 133 mg/dL Normal [facility] Comment on above: Result Comment: The drugs N-Acetylcysteine and Metamizole may falselydepress this assay.Normal range: <150 mg/dLBorderline High: 150-199 mg/dLHigh: 200-499 mg/dLVery High: >500 mg/dL Performed By: #### L 3890.6301, L501.9520, L100.0100, L500.4050, L500.4100, L506.1001 ####[facility] [address] [place], [address] Thyroid Stim Hormone (TSH)on 12-04-2024 TSH 1.450 uIU/mL Normal 0.300-4.200 [facility] Comment on above: Performed By: #### L 3890.6301, L501.9520, L100.0100, L500.4050, L500.4100, L506.1001 ####[facility] [address] [place], [address] Vitamin D,25 Hydroxyon 12-04 Vitamin D 25-OH 40.7 ng/mL Normal 30-100 [facility] Comment on above: Result Comment: Kaycee min D StatusDeficiency: <20 ng/mL (50nmol/L)Insufficiency: 20-30 ng/mL (50-75 nmol/L)Sufficiency: 30-100 ng/mL (75-250 nmol/L)Toxicity: >100 ng/mL (>250 nmol/L) Performed By: #### L 3890.6301, L501.9520, L100.0100, L500.4050, L500.4100, L506.1001 ####[facility] [address] [place], [address] Basic Metabolic Profile (BMP )on 2024 BUN Normal 4-19 [facility] Comment on above: Result Comment: Canc elled via OM: Order cancelled - Patient discharged Performed By: #### L 100.0100, L500.2500 ####[facility] [address] [place], [address] BUN/CRE Normal 10-20 [facility] Comment on above: Result Comment: Canc elled via OM: Order cancelled - Patient discharged Performed By: #### L 100.0100, L500.2500 ####[facility] [address] [place], [address] Calcium Normal 7.6-11.0 [facility] Comment on above: Result Comment: Canc elled via OM: Order cancelled - Patient discharged Performed By: #### L 100.0100, L500.2500 ####[facility] [address] [place], [address] CL Normal 98-108 [facility] Comment on above: Result Comment: Canc elled via OM: Order cancelled - Patient discharged Performed By: #### L 100.0100, L500.2500 ####[facility] [address] [place], [address] CO2 Normal 21.0-32.0 [facility] Comment on above: Result Comment: Canc elled via OM: Order cancelled - Patient discharged Performed By: #### L 100.0100, L500.2500 ####[facility] [address] [place], [address] CREAT,SERUM Normal 0.70-1.20 [facility] Comment on above: Result Comment: Canc elled via OM: Order cancelled - Patient discharged Performed By: #### L 100.0100, L500.2500 ####[facility] [address] [place], [address] eGFR Normal >60 [facility] Comment on above: Result Comment: Canc elled via OM: Order cancelled - Patient discharged Performed By: #### L 100.0100, L500.2500 ####[facility] [address] [place], [address] GAP Normal 5-15 [facility] Comment on above: Result Comment: Canc elled via OM: Order cancelled - Patient discharged Performed By: #### L 100.0100, L500.2500 ####[facility] [address] [place], [address] GLU Normal 70-99 [facility] Comment on above: Result Comment: Canc elled via OM: Order cancelled - Patient discharged Performed By: #### L 100.0100, L500.2500 ####[facility] [address] [place], [address] Potassium Normal 3.3-5.1 [facility] Comment on above: Result Comment: Canc elled via OM: Order cancelled - Patient discharged Performed By: #### L 100.0100, L500.2500 ####[facility] [address] [place], [address] Basic Metabolic Profile (BMP) Normal 133-145 [facility] Comment on above: Result Comment: Canc elled via OM: Order cancelled - Patient discharged Performed By: #### L 100.0100, L500.2500 ####[facility] [address] [place], [address] CBC W/Diff, Automatedon 07-0 -2024 Absolute Neut Normal 2.0-7.7 [facility] Comment on above: Result Comment: Canc elled via OM: Order cancelled - Patient discharged Performed By: #### L 100.0100, L500.2500 ####[facility] [address] [place], [address] HCT Normal 37-47 [facility] Comment on above: Result Comment: Canc elled via OM: Order cancelled - Patient discharged Performed By: #### L 100.0100, L500.2500 ####[facility] [address] [place], [address] HGB Normal 12.0-15.0 [facility] Comment on above: Result Comment: Canc elled via OM: Order cancelled - Patient discharged Performed By: #### L 100.0100, L500.2500 ####[facility] [address] [place], [address] MCH Normal 27.0-32.0 [facility] Comment on above: Result Comment: Canc elled via OM: Order cancelled - Patient discharged Performed By: #### L 100.0100, L500.2500 ####[facility] [address] [place], [address] MCHC Normal 32-36 [facility] Comment on above: Result Comment: Canc elled via OM: Order cancelled - Patient discharged Performed By: #### L 100.0100, L500.2500 ####[facility] [address] [place], [address] MCV Normal 81-99 [facility] Comment on above: Result Comment: Canc elled via OM: Order cancelled - Patient discharged Performed By: #### L 100.0100, L500.2500 ####[facility] [address] [place], [address] NEUT% Normal 47-70 [facility] Comment on above: Result Comment: Canc elled via OM: Order cancelled - Patient discharged Performed By: #### L 100.0100, L500.2500 ####[facility] [address] [place], [address] PLT Normal 150-450 [facility] Comment on above: Result Comment: Canc elled via OM: Order cancelled - Patient discharged Performed By: #### L 100.0100, L500.2500 ####[facility] [address] [place], [address] RBC Normal 4.2-5.4 [facility] Comment on above: Result Comment: Canc elled via OM: Order cancelled - Patient discharged Performed By: #### L 100.0100, L500.2500 ####[facility] [address] [place], [address] RDW CV Normal 11.6-14.6 [facility] Comment on above: Result Comment: Canc elled via OM: Order cancelled - Patient discharged Performed By: #### L 100.0100, L500.2500 ####[facility] [address] [place], [address] RDW SD Normal 35.1-43.9 [facility] Comment on above: Result Comment: Canc elled via OM: Order cancelled - Patient discharged Performed By: #### L 100.0100, L500.2500 ####[facility] [address] [place], [address] WBC Normal 4.4-11.0 [facility] Comment on above: Result Comment: Canc elled via OM: Order cancelled - Patient discharged Performed By: #### L 100.0100, L500.2500 ####[facility] [address] [place], [address] Basic Metabolic Profile (BMP )on 11-25-2024 BUN Normal 4-19 [facility] Comment on above: Result Comment: Canc elled via OM: Order cancelled - Patient discharged Performed By: #### L 500.2500, L100.0100 ####[facility] [address] [place], [address] BUN/CRE Normal 10-20 [facility] Comment on above: Result Comment: Canc elled via OM: Order cancelled - Patient discharged Performed By: #### L 500.2500, L100.0100 ####[facility] [address] [place], [address] Calcium Normal 7.6-11.0 [facility] Comment on above: Result Comment: Canc elled via OM: Order cancelled - Patient discharged Performed By: #### L 500.2500, L100.0100 ####[facility] [address] [place], [address] CL Normal 98-108 [facility] Comment on above: Result Comment: Canc elled via OM: Order cancelled - Patient discharged Performed By: #### L 500.2500, L100.0100 ####[facility] [address] [place], [address] CO2 Normal 21.0-32.0 [facility] Comment on above: Result Comment: Canc elled via OM: Order cancelled - Patient discharged Performed By: #### L 500.2500, L100.0100 ####[facility] [address] [place], [address] CREAT,SERUM Normal 0.70-1.20 [facility] Comment on above: Result Comment: Canc elled via OM: Order cancelled - Patient discharged Performed By: #### L 500.2500, L100.0100 ####[facility] [address] [place], [address] eGFR Normal >60 [facility] Comment on above: Result Comment: Canc elled via OM: Order cancelled - Patient discharged Performed By: #### L 500.2500, L100.0100 ####[facility] [address] [place], [address] GAP Normal 5-15 [facility] Comment on above: Result Comment: Canc elled via OM: Order cancelled - Patient discharged Performed By: #### L 500.2500, L100.0100 ####[facility] [address] [place], [address] GLU Normal 70-99 [facility] Comment on above: Result Comment: Canc elled via OM: Order cancelled - Patient discharged Performed By: #### L 500.2500, L100.0100 ####[facility] [address] [place], [address] Potassium Normal 3.3-5.1 [facility] Comment on above: Result Comment: Canc elled via OM: Order cancelled - Patient discharged Performed By: #### L 500.2500, L100.0100 ####[facility] [address] [place], [address] Basic Metabolic Profile (BMP) Normal 133-145 [facility] Comment on above: Result Comment: Canc elled via OM: Order cancelled - Patient discharged Performed By: #### L 500.2500, L100.0100 ####[facility] [address] [place], [address] CBC W/Diff, Automatedon 06-2 Absolute Neut Normal 2.0-7.7 [facility] Comment on above: Result Comment: Canc elled via OM: Order cancelled - Patient discharged Performed By: #### L 500.2500, L100.0100 ####[facility] [address] [place], [address] HCT Normal 37-47 [facility] Comment on above: Result Comment: Canc elled via OM: Order cancelled - Patient discharged Performed By: #### L 500.2500, L100.0100 ####[facility] [address] [place], [address] HGB Normal 12.0-15.0 [facility] Comment on above: Result Comment: Canc elled via OM: Order cancelled - Patient discharged Performed By: #### L 500.2500, L100.0100 ####[facility] [address] [place], [address] MCH Normal 27.0-32.0 [facility] Comment on above: Result Comment: Canc elled via OM: Order cancelled - Patient discharged Performed By: #### L 500.2500, L100.0100 ####[facility] [address] [place], [address] MCHC Normal 32-36 [facility] Comment on above: Result Comment: Canc elled via OM: Order cancelled - Patient discharged Performed By: #### L 500.2500, L100.0100 ####[facility] [address] [place], [address] MCV Normal 81-99 [facility] Comment on above: Result Comment: Canc elled via OM: Order cancelled - Patient discharged Performed By: #### L 500.2500, L100.0100 ####[facility] [address] [place], [address] NEUT% Normal 47-70 [facility] Comment on above: Result Comment: Canc elled via OM: Order cancelled - Patient discharged Performed By: #### L 500.2500, L100.0100 ####[facility] [address] [place], [address] PLT Normal 150-450 [facility] Comment on above: Result Comment: Canc elled via OM: Order cancelled - Patient discharged Performed By: #### L 500.2500, L100.0100 ####[facility] [address] [place], [address] RBC Normal 4.2-5.4 [facility] Comment on above: Result Comment: Canc elled via OM: Order cancelled - Patient discharged Performed By: #### L 500.2500, L100.0100 ####[facility] [address] [place], [address] RDW CV Normal 11.6-14.6 [facility] Comment on above: Result Comment: Canc elled via OM: Order cancelled - Patient discharged Performed By: #### L 500.2500, L100.0100 ####[facility] [address] [place], [address] RDW SD Normal 35.1-43.9 [facility] Comment on above: Result Comment: Canc elled via OM: Order cancelled - Patient discharged Performed By: #### L 500.2500, L100.0100 ####[facility] [address] [place], [address] WBC Normal 4.4-11.0 [facility] Comment on above: Result Comment: Canc elled via OM: Order cancelled - Patient discharged Performed By: #### L 500.2500, L100.0100 ####[facility] [address] [place], [address] Basic Metabolic Profile (BMP )on 11-24-2024 BUN/CRE 12.2 RATIO Normal 10-20 [facility] Comment on above: Performed By: #### L 100.0100, L500.2500 ####[facility] [address] [place], [address] Calcium [Mass/Vol] 8.8 mg/dL Normal 7.6-11.0 [facility] Comment on above: Performed By: #### L 100.0100, L500.2500 ####[facility] [address] [place], [address] Chloride [Moles/Vol] 101 mmol/L Normal 98-108 [facility] Comment on above: Performed By: #### L 100.0100, L500.2500 ####[facility] [address] [place], [address] CO2 [Moles/Vol] 25.7 mmol/L Normal 21.0-32.0 [facility] Comment on above: Performed By: #### L 100.0100, L500.2500 ####[facility] [address] [place], [address] Creatinine [Mass/Vol] 1.62 mg/dL High 0.70-1.20 [facility] Comment on above: Performed By: #### L 100.0100, L500.2500 ####[facility] [address] [place], [address] GAP 14 Normal 5-15 [facility] Comment on above: Performed By: #### L 100.0100, L500.2500 ####[facility] [address] [place], [address] GFR/1.73 sq M.predicted among non-blacks MDRD (S/P/Bld) [Vol rate/Area] 36 mL/min/{1.73_m2} Low >60 [facility] Comment on above: Result Comment: mL/m in/1.73m2 CKD-EPI Creatinine Equation (2020) Performed By: #### L 100.0100, L500.2500 ####[facility] [address] [place], [address] Glucose [Mass/Vol] 84 mg/dL Normal 70-99 [facility] Comment on above: Performed By: #### L 100.0100, L500.2500 ####[facility] [address] [place], [address] Potassium [Moles/Vol] 3.5 mmol/L Normal 3.3-5.1 [facility] Comment on above: Performed By: #### L 100.0100, L500.2500 ####[facility] [address] [place], [address] Sodium [Moles/Vol] 141 mmol/L Normal 133-145 [facility] Comment on above: Performed By: #### L 100.0100, L500.2500 ####[facility] [address] [place], [address] Urea nitrogen [Mass/Vol] 20 mg/dL High 4-19 [facility] Comment on above: Performed By: #### L 100.0100, L500.2500 ####[facility] [address] [place], [address] CBC W/Diff, Automatedon 11-03-2024 Absolute Lymph 1.03 X10 3/uL Normal 0.83-4.51 [facility] Comment on above: Performed By: #### L 100.0100, L500.2500 ####[facility] [address] [place], [address] Absolute Neut 3.2 X10 3/uL Normal 2.0-7.7 [facility] Comment on above: Performed By: #### L 100.0100, L500.2500 ####[facility] [address] [place], [address] Basophils/100 WBC (Bld) 0.4 % Normal 0-1 [facility] Comment on above: Performed By: #### L 100.0100, L500.2500 ####[facility] [address] [place], [address] Eosinophils/100 WBC (Bld) 1.7 % Normal 0-5 [facility] Comment on above: Performed By: #### L 100.0100, L500.2500 ####[facility] [address] [place], [address] Erythrocyte distribution width (RBC) [Ratio] 16.0 % High 11.6-14.6 [facility] Comment on above: Performed By: #### L 100.0100, L500.2500 ####[facility] [address] [place], [address] Hematocrit (Bld) [Volume fraction] 31.7 % Low 37-47 [facility] Comment on above: Performed By: #### L 100.0100, L500.2500 ####[facility] [address] [place], [address] Hemoglobin (Bld) [Mass/Vol] 9.8 g/dL Low 12.0-15.0 [facility] Comment on above: Performed By: #### L 100.0100, L500.2500 ####[facility] [address] [place], [address] IG% 0.400 Normal 0.0-0.9 [facility] Comment on above: Result Comment: IG% - Immature Granulocytes (promyelocytes, myelocytes andmetamyelocytes) > 1% indicates that a LEFT SHIFT is Present. Performed By: #### L 100.0100, L500.2500 ####[facility] [address] [place], [address] Lymphocytes/100 WBC (Bld) 21.7 % Normal 19-41 [facility] Comment on above: Performed By: #### L 100.0100, L500.2500 ####[facility] [address] [place], [address] MCH (RBC) [Entitic mass] 28.7 pg Normal 27.0-32.0 [facility] Comment on above: Performed By: #### L 100.0100, L500.2500 ####[facility] [address] [place], [address] MCHC (RBC) [Mass/Vol] 30.9 g/dL Low 32-36 [facility] Comment on above: Performed By: #### L 100.0100, L500.2500 ####[facility] [address] [place], [address] MCV (RBC) [Entitic vol] 92.7 fL Normal 81-99 [facility] Comment on above: Performed By: #### L 100.0100, L500.2500 ####[facility] [address] [place], [address] Monocytes/100 WBC (Bld) 8.4 % Normal 0-10 [facility] Comment on above: Performed By: #### L 100.0100, L500.2500 ####[facility] [address] [place], [address] Neutrophils/100 WBC (Bld) 67.4 % Normal 47-70 [facility] Comment on above: Performed By: #### L 100.0100, L500.2500 ####[facility] [address] [place], [address] Nucleated RBC (Bld) [#/Vol] 0 10*3/uL Normal 0-5 [facility] Comment on above: Performed By: #### L 100.0100, L500.2500 ####[facility] [address] [place], [address] Platelet mean volume (Bld) [Entitic vol] 10.2 fL Normal 6.2-12.0 [facility] Comment on above: Performed By: #### L 100.0100, L500.2500 ####[facility] [address] [place], [address] Platelets (Bld) [#/Vol] 194 10*3/uL Normal 150-450 [facility] Comment on above: Performed By: #### L 100.0100, L500.2500 ####[facility] [address] [place], [address] RBC (Bld) [#/Vol] 3.42 10*6/uL Low 4.2-5.4 [facility] Comment on above: Performed By: #### L 100.0100, L500.2500 ####[facility] [address] [place], [address] RDW SD 54.5 fl High 35.1-43.9 [facility] Comment on above: Performed By: #### L 100.0100, L500.2500 ####[facility] [address] [place], [address] WBC (Bld) [#/Vol] 4.8 10*3/uL Normal 4.4-11.0 [facility] Comment on above: Performed By: #### L 100.0100, L500.2500 ####[facility] [address] [place], [address] Bedside Glucoseon 11-20-2024 FINGERSTICK GLU 96 mg/dL Normal 74-106 [facility] Comment on above: Result Comment: [facility] OF PATIENT CARE PER NURSING PROTOCOL Performed By: #### L 501.080 ####[facility] [address] [place], [address] Colonoscopy Reporton 025 Colonoscopy Report Normal [facility] EGD Reporton 11-20-[address] [facility] Immunohistochemical Stainson 11-20-[address] [facility] Comment on above: Performed By: #### SHAWNEE HOFFMANN ####[facility] [address] [place], [address] MR/POSTOP.ANEon 11-20-2024 MR/POSTOP.ANE Normal [facility] MR/XOPXCNSP5wd 11-20-2024 MR/POSTOPAN2 Normal [facility] Surgery Specimen Level Kacy 11-20-2024 Surgery Specimen Level IV Normal [facility] Comment on above: Performed By: #### SHAWNEE HOFFMANN ####[facility] [address] [place], [address] HH, Hemoglobin AND Hematocri ton 11-19-2024 Hematocrit (Bld) [Volume fraction] 26.4 % Low 37-47 [facility] Comment on above: Performed By: #### L 100.0600 ####[facility] [address] [place], [address] Hemoglobin (Bld) [Mass/Vol] 8.0 g/dL Low 12.0-15.0 [facility] Comment on above: Performed By: #### L 100.0600 ####[facility] [address] [place], [address] MR/CON.PCM.GIon 11-19-2024 MR/CON.PCM.GI Normal [facility] Basic Metabolic Profile (BMP )on 11-18-2024 BUN/CRE 14.7 RATIO Normal 10-20 [facility] Comment on above: Performed By: #### L 500.2500, L100.0100 ####[facility] [address] [place], [address] Calcium [Mass/Vol] 9.1 mg/dL Normal 7.6-11.0 [facility] Comment on above: Performed By: #### L 500.2500, L100.0100 ####[facility] [address] [place], [address] Chloride [Moles/Vol] 108 mmol/L Normal 98-108 [facility] Comment on above: Performed By: #### L 500.2500, L100.0100 ####[facility] [address] [place], [address] CO2 [Moles/Vol] 26.7 mmol/L Normal 21.0-32.0 [facility] Comment on above: Performed By: #### L 500.2500, L100.0100 ####[facility] [address] [place], [address] Creatinine [Mass/Vol] 1.60 mg/dL High 0.70-1.20 [facility] Comment on above: Performed By: #### L 500.2500, L100.0100 ####[facility] [address] [place], [address] ECRCL 48.32 ml/min Low 50-250 [facility] Comment on above: Performed By: #### L 500.2500, L100.0100 ####[facility] [address] [place], [address] GAP 10 Normal 5-15 [facility] Comment on above: Performed By: #### L 500.2500, L100.0100 ####[facility] [address] [place], [address] GFR/1.73 sq M.predicted among non-blacks MDRD (S/P/Bld) [Vol rate/Area] 36 mL/min/{1.73_m2} Low >60 [facility] Comment on above: Result Comment: mL/m in/1.73m2 CKD-EPI Creatinine Equation (2020) Performed By: #### L 500.2500, L100.0100 ####[facility] [address] [place], [address] Glucose [Mass/Vol] 108 mg/dL High 70-99 [facility] Comment on above: Performed By: #### L 500.2500, L100.0100 ####[facility] [address] [place], [address] Potassium [Moles/Vol] 3.4 mmol/L Normal 3.3-5.1 [facility] Comment on above: Performed By: #### L 500.2500, L100.0100 ####[facility] [address] [place], [address] Sodium [Moles/Vol] 144 mmol/L Normal 133-145 [facility] Comment on above: Performed By: #### L 500.2500, L100.0100 ####[facility] [address] [place], [address] Urea nitrogen [Mass/Vol] 24 mg/dL High 4-19 [facility] Comment on above: Performed By: #### L 500.2500, L100.0100 ####[facility] [address] [place], [address] CBC W/Diff, Automatedon 11-02 SMEAR COMMENT SCANNED Normal [facility] Comment on above: Result Comment: LYMP HOPENIA NOTED Performed By: #### L 500.2500, L100.0100 ####[facility] [address] [place], [address] Basic Metabolic Profile (BMP )on 11-16-2024 BUN/CRE 14.0 RATIO Normal 10-20 [facility] Comment on above: Performed By: #### L 500.2500 ####[facility] [address] [place], [address] Calcium [Mass/Vol] 9.3 mg/dL Normal 7.6-11.0 [facility] Comment on above: Performed By: #### L 500.2500 ####[facility] [address] [place], [address] Chloride [Moles/Vol] 107 mmol/L Normal 98-108 [facility] Comment on above: Performed By: #### L 500.2500 ####[facility] [address] [place], [address] CO2 [Moles/Vol] 26.9 mmol/L Normal 21.0-32.0 [facility] Comment on above: Performed By: #### L 500.2500 ####[facility] [address] [place], [address] Creatinine [Mass/Vol] 1.71 mg/dL High 0.70-1.20 [facility] Comment on above: Performed By: #### L 500.2500 ####[facility] [address] [place], [address] ECRCL 45.21 ml/min Low 50-250 [facility] Comment on above: Performed By: #### L 500.2500 ####[facility] [address] [place], [address] GAP 9 Normal 5-15 [facility] Comment on above: Performed By: #### L 500.2500 ####[facility] [address] [place], [address] GFR/1.73 sq M.predicted among non-blacks MDRD (S/P/Bld) [Vol rate/Area] 33 mL/min/{1.73_m2} Low >60 [facility] Comment on above: Result Comment: mL/m in/1.73m2 CKD-EPI Creatinine Equation (2020) Performed By: #### L 500.2500 ####[facility] [address] [place], [address] Glucose [Mass/Vol] 96 mg/dL Normal 70-99 [facility] Comment on above: Performed By: #### L 500.2500 ####[facility] [address] [place], [address] Potassium [Moles/Vol] 3.6 mmol/L Normal 3.3-5.1 [facility] Comment on above: Performed By: #### L 500.2500 ####[facility] [address] [place], [address] Sodium [Moles/Vol] 142 mmol/L Normal 133-145 [facility] Comment on above: Performed By: #### L 500.2500 ####[facility] [address] [place], [address] Urea nitrogen [Mass/Vol] 24 mg/dL High 4-19 [facility] Comment on above: Performed By: #### L 500.2500 ####[facility] [address] [place], [address] Basic Metabolic Profile (BMP )on 11-15-2024 BUN/CRE 12.3 RATIO Normal 10-20 [facility] Comment on above: Performed By: #### L 500.2500 ####[facility] [address] [place], [address] Calcium [Mass/Vol] 9.4 mg/dL Normal 7.6-11.0 [facility] Comment on above: Performed By: #### L 500.2500 ####[facility] [address] [place], [address] Chloride [Moles/Vol] 106 mmol/L Normal 98-108 [facility] Comment on above: Performed By: #### L 500.2500 ####[facility] [address] [place], [address] CO2 [Moles/Vol] 26.2 mmol/L Normal 21.0-32.0 [facility] Comment on above: Performed By: #### L 500.2500 ####[facility] [address] [place], [address] Creatinine [Mass/Vol] 1.86 mg/dL High 0.70-1.20 [facility] Comment on above: Performed By: #### L 500.2500 ####[facility] [address] [place], [address] ECRCL 41.56 ml/min Low 50-250 [facility] Comment on above: Performed By: #### L 500.2500 ####[facility] [address] [place], [address] GAP 10 Normal 5-15 [facility] Comment on above: Performed By: #### L 500.2500 ####[facility] [address] [place], [address] GFR/1.73 sq M.predicted among non-blacks MDRD (S/P/Bld) [Vol rate/Area] 30 mL/min/{1.73_m2} Low >60 [facility] Comment on above: Result Comment: mL/m in/1.73m2 CKD-EPI Creatinine Equation (2020) Performed By: #### L 500.2500 ####[facility] [address] [place], [address] Glucose [Mass/Vol] 103 mg/dL High 70-99 [facility] Comment on above: Performed By: #### L 500.2500 ####[facility] [address] [place], [address] Potassium [Moles/Vol] 3.5 mmol/L Normal 3.3-5.1 [facility] Comment on above: Performed By: #### L 500.2500 ####[facility] [address] [place], [address] Sodium [Moles/Vol] 142 mmol/L Normal 133-145 [facility] Comment on above: Performed By: #### L 500.2500 ####[facility] [address] [place], [address] Urea nitrogen [Mass/Vol] 23 mg/dL High 4-19 [facility] Comment on above: Performed By: #### L 500.2500 ####[facility] [address] [place], [address] HH, Hemoglobin AND Hematocri ton 11-15-2024 Hematocrit (Bld) [Volume fraction] 30.9 % Low 37-47 [facility] Comment on above: Performed By: #### L 100.0600 ####[facility] [address] [place], [address] Hemoglobin (Bld) [Mass/Vol] 9.4 g/dL Low 12.0-15.0 [facility] Comment on above: Performed By: #### L 100.0600 ####[facility] [address] [place], [address] Basic Metabolic Profile (BMP )on 11-14-2024 BUN/CRE 11.8 RATIO Normal 10-20 [facility] Comment on above: Performed By: #### L 500.2500, L506.1001 ####[facility] [address] [place], [address] Calcium [Mass/Vol] 9.3 mg/dL Normal 7.6-11.0 [facility] Comment on above: Performed By: #### L 500.2500, L506.1001 ####[facility] [address] [place], [address] Chloride [Moles/Vol] 104 mmol/L Normal 98-108 [facility] Comment on above: Performed By: #### L 500.2500, L506.1001 ####[facility] [address] [place], [address] CO2 [Moles/Vol] 27.0 mmol/L Normal 21.0-32.0 [facility] Comment on above: Performed By: #### L 500.2500, L506.1001 ####[facility] [address] [place], [address] Creatinine [Mass/Vol] 1.84 mg/dL High 0.70-1.20 [facility] Comment on above: Performed By: #### L 500.2500, L506.1001 ####[facility] [address] [place], [address] ECRCL 42.01 ml/min Low 50-250 [facility] Comment on above: Performed By: #### L 500.2500, L506.1001 ####[facility] [address] [place], [address] GAP 9 Normal 5-15 [facility] Comment on above: Performed By: #### L 500.2500, L506.1001 ####[facility] [address] [place], [address] GFR/1.73 sq M.predicted among non-blacks MDRD (S/P/Bld) [Vol rate/Area] 31 mL/min/{1.73_m2} Low >60 [facility] Comment on above: Result Comment: mL/m in/1.73m2 CKD-EPI Creatinine Equation (2020) Performed By: #### L 500.2500, L506.1001 ####[facility] [address] [place], [address] Glucose [Mass/Vol] 93 mg/dL Normal 70-99 [facility] Comment on above: Performed By: #### L 500.2500, L506.1001 ####[facility] [address] [place], [address] Potassium [Moles/Vol] 3.4 mmol/L Normal 3.3-5.1 [facility] Comment on above: Performed By: #### L 500.2500, L506.1001 ####[facility] [address] [place], [address] Sodium [Moles/Vol] 140 mmol/L Normal 133-145 [facility] Comment on above: Performed By: #### L 500.2500, L506.1001 ####[facility] [address] [place], [address] Urea nitrogen [Mass/Vol] 22 mg/dL High 4-19 [facility] Comment on above: Performed By: #### L 500.2500, L506.1001 ####[facility] [address] [place], [address] HH, Hemoglobin AND Hematocri ton 06-13-2025 Hematocrit (Bld) [Volume fraction] 24.0 % Low 37-47 [facility] Comment on above: Performed By: #### L 100.0600 ####[facility] [address] [place], [address] Hemoglobin (Bld) [Mass/Vol] 7.2 g/dL Low 12.0-15.0 [facility] Comment on above: Performed By: #### L 100.0600 ####[facility] [address] [place], [address] Urine Cultureon 11-14-2024 URC Culture exhibits no growth. Normal [facility] Comment on above: Performed By: #### L 400.0001, M100.2200 ####[facility] [address] [place], [address] Vitamin D,25 Hydroxyon 11-14 Vitamin D 25-OH 27.6 ng/mL Low 30-100 [facility] Comment on above: Result Comment: Kaycee min D StatusDeficiency: <20 ng/mL (50nmol/L)Insufficiency: 20-30 ng/mL (50-75 nmol/L)Sufficiency: 30-100 ng/mL (75-250 nmol/L)Toxicity: >100 ng/mL (>250 nmol/L) Performed By: #### L 500.2500, L506.1001 ####[facility] [address] [place], [address] BRCon 11-13-[address] [facility] Comment on above: Result Comment: [id number] AN RC TRANSFUSED 11/14/24 0919 Performed By: #### B RC, BTS ####[facility] [address] [place], [address] Basic Metabolic Profile (BMP )on 11-13-2024 BUN/CRE 11.2 RATIO Normal 10-20 [facility] Comment on above: Performed By: #### L 500.2500 ####[facility] [address] [place], [address] Calcium [Mass/Vol] 9.5 mg/dL Normal 7.6-11.0 [facility] Comment on above: Performed By: #### L 500.2500 ####[facility] [address] [place], [address] Chloride [Moles/Vol] 102 mmol/L Normal 98-108 [facility] Comment on above: Performed By: #### L 500.2500 ####[facility] [address] [place], [address] CO2 [Moles/Vol] 27.1 mmol/L Normal 21.0-32.0 [facility] Comment on above: Performed By: #### L 500.2500 ####[facility] [address] [place], [address] Creatinine [Mass/Vol] 1.95 mg/dL High 0.70-1.20 [facility] Comment on above: Performed By: #### L 500.2500 ####[facility] [address] [place], [address] ECRCL 39.64 ml/min Low 50-250 [facility] Comment on above: Performed By: #### L 500.2500 ####[facility] [address] [place], [address] GAP 11 Normal 5-15 [facility] Comment on above: Performed By: #### L 500.2500 ####[facility] [address] [place], [address] GFR/1.73 sq M.predicted among non-blacks MDRD (S/P/Bld) [Vol rate/Area] 29 mL/min/{1.73_m2} Low >60 [facility] Comment on above: Result Comment: mL/m in/1.73m2 CKD-EPI Creatinine Equation (2020) Performed By: #### L 500.2500 ####[facility] [address] [place], [address] Glucose [Mass/Vol] 105 mg/dL High 70-99 [facility] Comment on above: Performed By: #### L 500.2500 ####[facility] [address] [place], [address] Potassium [Moles/Vol] 3.2 mmol/L Low 3.3-5.1 [facility] Comment on above: Performed By: #### L 500.2500 ####[facility] [address] [place], [address] Sodium [Moles/Vol] 140 mmol/L Normal 133-145 [facility] Comment on above: Performed By: #### L 500.2500 ####[facility] [address] [place], [address] Urea nitrogen [Mass/Vol] 22 mg/dL High 4-19 [facility] Comment on above: Performed By: #### L 500.2500 ####[facility] [address] [place], [address] HH, Hemoglobin AND Hematocri ton 11-13-2024 Hematocrit (Bld) [Volume fraction] 25.7 % Low 37-47 [facility] Comment on above: Performed By: #### L 100.0600 ####[facility] [address] [place], [address] Hemoglobin (Bld) [Mass/Vol] 7.7 g/dL Low 12.0-15.0 [facility] Comment on above: Performed By: #### L 100.0600 ####[facility] [address] [place], [address] Stool Occult Blood iFOBon STOB Positive Normal [facility] Comment on above: Performed By: #### M 100.7900 ####[facility] [address] [place], [address] Type AND Screenon 11-13-2024 Ab SCREEN GEL Negative Normal [facility] Comment on above: Order Comment: CMV N EG? NNumber of units to transfuse: 1Reason for Ordering Blood: AcuteAre the blood/blood products to be transfused? YIs the patient having/had surgery? NWhen Nguyen Performed By: #### B RC, BTS ####[facility] [address] [place], [address] Urinalysis, Completeon 11-13 BACTERIA 0 SEEN Normal None Seen [facility] Comment on above: Order Comment: BLADD ER TAP Performed By: #### L 400.0001, M100.2200 ####[facility] [address] [place], [address] EPI,SQUAMOUS 0 SEEN Normal 5-10 [facility] Comment on above: Order Comment: BLADD ER TAP Performed By: #### L 400.0001, M100.2200 ####[facility] [address] [place], [address] Mucus Ql (Urine sed) 0 SEEN Normal [facility] Comment on above: Order Comment: BLADD ER TAP Performed By: #### L 400.0001, M100.2200 ####[facility] [address] [place], [address] RBC 0 SEEN Normal 0-5 [facility] Comment on above: Order Comment: BLADD ER TAP Performed By: #### L 400.0001, M100.2200 ####[facility] [address] [place], [address] WBC 0 SEEN Normal 0-5 [facility] Comment on above: Order Comment: BLADD ER TAP Performed By: #### L 400.0001, M100.2200 ####[facility] [address] [place], [address] Culture, Blood (WB)on 2024 CUB Blood cultures x2, f rom two different sites No growth in [address] [facility] Comment on above: Performed By: #### L 300.4310, M200.1000, L100.0100, L501.4021, L503.6005, L300.3900 ####[facility] [address] [place], [address] HH, Hemoglobin AND Hematocri ton 11-12-2024 Hematocrit (Bld) [Volume fraction] 26.6 % Low 37-47 [facility] Comment on above: Performed By: #### L 100.0600 ####[facility] [address] [place], [address] Hemoglobin (Bld) [Mass/Vol] 8.0 g/dL Low 12.0-15.0 [facility] Comment on above: Performed By: #### L 100.0600 ####[facility] [address] [place], [address] Abdomen Single Viewon 2024 Abdomen Single View Normal [facility] Basic Metabolic Profile (BMP )on 11-11-2024 BUN/CRE 11.6 RATIO Normal 10-20 [facility] Comment on above: Performed By: #### L 500.2500, L100.0100 ####[facility] [address] [place], [address] Calcium [Mass/Vol] 9.7 mg/dL Normal 7.6-11.0 [facility] Comment on above: Performed By: #### L 500.2500, L100.0100 ####[facility] [address] [place], [address] Chloride [Moles/Vol] 105 mmol/L Normal 98-108 [facility] Comment on above: Performed By: #### L 500.2500, L100.0100 ####[facility] [address] [place], [address] CO2 [Moles/Vol] 25.3 mmol/L Normal 21.0-32.0 [facility] Comment on above: Performed By: #### L 500.2500, L100.0100 ####[facility] [address] [place], [address] Creatinine [Mass/Vol] 2.04 mg/dL High 0.70-1.20 [facility] Comment on above: Performed By: #### L 500.2500, L100.0100 ####[facility] [address] [place], [address] ECRCL 37.89 ml/min Low 50-250 [facility] Comment on above: Performed By: #### L 500.2500, L100.0100 ####[facility] [address] [place], [address] GAP 10 Normal 5-15 [facility] Comment on above: Performed By: #### L 500.2500, L100.0100 ####[facility] [address] [place], [address] GFR/1.73 sq M.predicted among non-blacks MDRD (S/P/Bld) [Vol rate/Area] 27 mL/min/{1.73_m2} Low >60 [facility] Comment on above: Result Comment: mL/m in/1.73m2 CKD-EPI Creatinine Equation (2020) Performed By: #### L 500.2500, L100.0100 ####[facility] [address] [place], [address] Glucose [Mass/Vol] 99 mg/dL Normal 70-99 [facility] Comment on above: Performed By: #### L 500.2500, L100.0100 ####[facility] [address] [place], [address] Potassium [Moles/Vol] 3.3 mmol/L Normal 3.3-5.1 [facility] Comment on above: Performed By: #### L 500.2500, L100.0100 ####[facility] [address] [place], [address] Sodium [Moles/Vol] 141 mmol/L Normal 133-145 [facility] Comment on above: Performed By: #### L 500.2500, L100.0100 ####[facility] [address] [place], [address] Urea nitrogen [Mass/Vol] 24 mg/dL High 4-19 [facility] Comment on above: Performed By: #### L 500.2500, L100.0100 ####[facility] [address] [place], [address] CBC W/Diff, Automatedon 06-1 0-2025 Absolute Lymph 0.74 X10 3/uL Low 0.83-4.51 [facility] Comment on above: Performed By: #### L 500.2500, L100.0100 ####[facility] [address] [place], [address] Absolute Neut 3.7 X10 3/uL Normal 2.0-7.7 [facility] Comment on above: Performed By: #### L 500.2500, L100.0100 ####[facility] [address] [place], [address] Basophils/100 WBC (Bld) 0.4 % Normal 0-1 [facility] Comment on above: Performed By: #### L 500.2500, L100.0100 ####[facility] [address] [place], [address] Eosinophils/100 WBC (Bld) 0.6 % Normal 0-5 [facility] Comment on above: Performed By: #### L 500.2500, L100.0100 ####[facility] [address] [place], [address] Erythrocyte distribution width (RBC) [Ratio] 17.2 % High 11.6-14.6 [facility] Comment on above: Performed By: #### L 500.2500, L100.0100 ####[facility] [address] [place], [address] Hematocrit (Bld) [Volume fraction] 26.8 % Low 37-47 [facility] Comment on above: Performed By: #### L 500.2500, L100.0100 ####[facility] [address] [place], [address] Hemoglobin (Bld) [Mass/Vol] 8.1 g/dL Low 12.0-15.0 [facility] Comment on above: Performed By: #### L 500.2500, L100.0100 ####[facility] [address] [place], [address] IG% 1.000 High 0.0-0.9 [facility] Comment on above: Result Comment: IG% - Immature Granulocytes (promyelocytes, myelocytes andmetamyelocytes) > 1% indicates that a LEFT SHIFT is Present. Performed By: #### L 500.2500, L100.0100 ####[facility] [address] [place], [address] Lymphocytes/100 WBC (Bld) 15.2 % Low 19-41 [facility] Comment on above: Performed By: #### L 500.2500, L100.0100 ####[facility] [address] [place], [address] MCH (RBC) [Entitic mass] 27.5 pg Normal 27.0-32.0 [facility] Comment on above: Performed By: #### L 500.2500, L100.0100 ####[facility] [address] [place], [address] MCHC (RBC) [Mass/Vol] 30.2 g/dL Low 32-36 [facility] Comment on above: Performed By: #### L 500.2500, L100.0100 ####[facility] [address] [place], [address] MCV (RBC) [Entitic vol] 90.8 fL Normal 81-99 [facility] Comment on above: Performed By: #### L 500.2500, L100.0100 ####[facility] [address] [place], [address] Monocytes/100 WBC (Bld) 7.6 % Normal 0-10 [facility] Comment on above: Performed By: #### L 500.2500, L100.0100 ####[facility] [address] [place], [address] Neutrophils/100 WBC (Bld) 75.2 % High 47-70 [facility] Comment on above: Performed By: #### L 500.2500, L100.0100 ####[facility] [address] [place], [address] Nucleated RBC (Bld) [#/Vol] 0 10*3/uL Normal 0-5 [facility] Comment on above: Performed By: #### L 500.2500, L100.0100 ####[facility] [address] [place], [address] Platelet mean volume (Bld) [Entitic vol] 9.6 fL Normal 6.2-12.0 [facility] Comment on above: Performed By: #### L 500.2500, L100.0100 ####[facility] [address] [place], [address] Platelets (Bld) [#/Vol] 163 10*3/uL Normal 150-450 [facility] Comment on above: Performed By: #### L 500.2500, L100.0100 ####[facility] [address] [place], [address] RBC (Bld) [#/Vol] 2.95 10*6/uL Low 4.2-5.4 [facility] Comment on above: Performed By: #### L 500.2500, L100.0100 ####[facility] [address] [place], [address] RDW SD 56.7 fl High 35.1-43.9 [facility] Comment on above: Performed By: #### L 500.2500, L100.0100 ####[facility] [address] [place], [address] WBC (Bld) [#/Vol] 4.9 10*3/uL Normal 4.4-11.0 [facility] Comment on above: Performed By: #### L 500.2500, L100.0100 ####[facility] [address] [place], [address] Consultation - Surgicalon Consultation - Surgical Normal [facility] Anion gap in Serum or Plasma Ordered By: Blayne Santana on 11-10-2024 Anion gap [Moles/Vol] 11 mmol/L 5-15 [facility] BUN/creatinine ratioOrdered By: Blayne Santana on 11-10-2024 Urea nitrogen/Creatinine [Mass ratio] 11.9 mg/mg 10- [facility] Basic Metabolic Profile (BMP )on 11-10-2024 BUN/CRE 11.9 RATIO Normal - [facility] Comment on above: Performed By: #### L 500.2500 ####[facility] [address] [place], [address] Calcium [Mass/Vol] 9.5 mg/dL Normal 7.6-11.0 [facility] Comment on above: Performed By: #### L 500.2500 ####[facility] [address] [place], [address] Chloride [Moles/Vol] 109 mmol/L High 98-108 [facility] Comment on above: Performed By: #### L 500.2500 ####[facility] [address] [place], [address] CO2 [Moles/Vol] 23.5 mmol/L Normal 21.0-32.0 [facility] Comment on above: Performed By: #### L 500.2500 ####[facility] [address] [place], [address] Creatinine [Mass/Vol] 2.16 mg/dL High 0.70-1.20 [facility] Comment on above: Performed By: #### L 500.2500 ####[facility] [address] [place], [address] ECRCL 38.93 ml/min Low 50-250 [facility] Comment on above: Performed By: #### L 500.2500 ####[facility] [address] [place], [address] GAP 11 Normal 5-15 [facility] Comment on above: Performed By: #### L 500.2500 ####[facility] [address] [place], [address] GFR/1.73 sq M.predicted among non-blacks MDRD (S/P/Bld) [Vol rate/Area] 25 mL/min/{1.73_m2} Low >60 [facility] Comment on above: Result Comment: mL/m in/1.73m2 CKD-EPI Creatinine Equation (2020) Performed By: #### L 500.2500 ####[facility] [address] [place], [address] Glucose [Mass/Vol] 98 mg/dL Normal 70-99 [facility] Comment on above: Performed By: #### L 500.2500 ####[facility] [address] [place], [address] Potassium [Moles/Vol] 3.4 mmol/L Normal 3.3-5.1 [facility] Comment on above: Performed By: #### L 500.2500 ####[facility] [address] [place], [address] Sodium [Moles/Vol] 144 mmol/L Normal 133-145 [facility] Comment on above: Performed By: #### L 500.2500 ####[facility] [address] [place], [address] Urea nitrogen [Mass/Vol] 26 mg/dL High 4-19 [facility] Comment on above: Performed By: #### L 500.2500 ####[facility] [address] [place], [address] Bedside Glucoseon 11-10-2024 FINGERSTICK GLU 94 mg/dL Normal 74-106 [facility] Comment on above: Result Comment: HAM GEMENT OF PATIENT CARE PER NURSING PROTOCOL Performed By: #### L 501.080 ####[facility] [address] [place], [address] FINGERSTICK GLU 105 mg/dL Normal 74-106 [facility] Comment on above: Result Comment: HAM GEMENT OF PATIENT CARE PER NURSING PROTOCOL Performed By: #### L 501.080 ####[facility] [address] [place], [address] Carbon dioxide, total [Moles /volume] in Central venous bloodOrdered By: Blayne Santana on 11-10-2024 CO2 [Moles/Vol] 23.5 mmol/L 21.0-32.0 [facility] Chloride assayOrdered By: Blue Santana on 11-10-2024 Chloride [Moles/Vol] 109 mmol/L High 98-108 [facility] Electrocardiogram reportOrde red By: Sharonda López on 11-10-[address] [facility] Other Phone: Ext Non Vasc Limited/Soft Ti sson 11-10-2024 Ext Non Vasc Limited/Soft Tiss Normal [facility] Glomerular filtration rate ( GFR) estimation/1.73 sq m using serum, plasma, or whole bOrdered By: Blayne Santana on 11-10-2024 GFR/1.73 sq M.predicted among non-blacks MDRD (S/P/Bld) [Vol rate/Area] 25 mL/min/{1.73_m2} Low >60 [facility] deOrdered By: Blayne Santana on 11-10-2024 Glucose [Mass/Vol] 94 mg/dL 74-106 [facility] Potassium measurement (mass/ volume)Ordered By: Blayne Santana on 11-10-2024 Potassium (Unsp spec) [Mass/Vol] 3.4 mmol/L 3.3-5.1 [facility] Serum creatinine measurement (mass/volume)Ordered By: Blayne Santana on 11-10-2024 Creatinine [Mass/Vol] 2.16 mg/dL High 0.70-1.20 [facility] Serum glucose measurement (m ass/volume)Ordered By: Blayne Santana on 11-10-2024 Glucose [Mass/Vol] 98 mg/dL 70-99 [facility] Serum or plasma calcium marisela urement (mass/volume)Ordered By: Blayne Santana on 11-10-2024 Calcium [Mass/Vol] 9.5 mg/dL 7.6-11.0 [facility] Serum or plasma urea nitroge n measurement (mass/volume)Ordered By: Blayne Santana on 11-10-2024 Urea nitrogen [Mass/Vol] 26 mg/dL High 4-19 [facility] Sodium levelOrdered By: Blayne Santana on 11-10-2024 Sodium [Moles/Vol] 144 mmol/L 133-145 [facility] Absolute lymphocyte countOrd ered By: Kaitlyn Winkler on 11-09-2024 Lymphocytes Auto (Unsp spec) [#/Vol] 0.47 10*3/uL Low 0.83-4.51 [facility] Automated lymphocyte count a s percentage of total leukocytesOrdered By: Kaitlyn Winkler on 11-09-2024 Lymphocytes/100 WBC Auto (Unsp spec) 10.4 % Low 19-41 [facility] Basophil percentageOrdered B y: Kaitlyn Winkler on 11-09-2024 Basophils/100 WBC (Bld) 0.2 % 0-1 [facility] Bedside Glucoseon 11-09-2024 FINGERSTICK GLU 96 mg/dL Normal 74-106 [facility] Comment on above: Result Comment: HAM GEMENT OF PATIENT CARE PER NURSING PROTOCOL Performed By: #### L 501.080 ####[facility] [address] [place], [address] FINGERSTICK GLU 130 mg/dL High -106 [facility] Comment on above: Result Comment: HAM GEMENT OF PATIENT CARE PER NURSING PROTOCOL Performed By: #### L 501.080 ####[facility] [address] [place], [address] FINGERSTICK GLU 95 mg/dL Normal -[address] [place] [address] Comment on above: Result Comment: HAM GEMENT OF PATIENT CARE PER NURSING PROTOCOL Performed By: #### L 501.080 ####[facility] [address] [place], [address] FINGERSTICK GLU 92 mg/dL Normal -106 [facility] Comment on above: Result Comment: HAM GEMENT OF PATIENT CARE PER NURSING PROTOCOL Performed By: #### L 501.080 ####[facility] [address] [place], [address] Bilirubin, totalOrdered By: Kaitlyn Winkler on 11-09-2024 Bilirubin [Mass/Vol] 0.59 mg/dL 0.00-1.30 [facility] CBC W/Diff, Automatedon Absolute Lymph 0.47 X10 3/uL Low 0.83-4.51 [facility] Comment on above: Order Comment: UTOx2 PHLEBS, PATIENTS NURSE ANH INFORMED. Performed By: #### L 501.5200, L501.2300, L100.0100, L500.4050 ####[facility] [address] [place], [address] Absolute Neut 3.6 X10 3/uL Normal 2.0-7.7 [facility] Comment on above: Order Comment: UTOx2 PHLEBS, PATIENTS NURSE ANH INFORMED. Performed By: #### L 501.5200, L501.2300, L100.0100, L500.4050 ####[facility] [address] [place], [address] Basophils/100 WBC (Bld) 0.2 % Normal 0-1 [facility] Comment on above: Order Comment: UTOx2 PHLEBS, PATIENTS NURSE ANH INFORMED. Performed By: #### L 501.5200, L501.2300, L100.0100, L500.4050 ####[facility] [address] [place], [address] Eosinophils/100 WBC (Bld) 1.1 % Normal 0-5 [facility] Comment on above: Order Comment: UTOx2 PHLEBS, PATIENTS NURSE ANH INFORMED. Performed By: #### L 501.5200, L501.2300, L100.0100, L500.4050 ####[facility] [address] [place], [address] Erythrocyte distribution width (RBC) [Ratio] 17.3 % High 11.6-14.6 [facility] Comment on above: Order Comment: UTOx2 PHLEBS, PATIENTS NURSE ANH INFORMED. Performed By: #### L 501.5200, L501.2300, L100.0100, L500.4050 ####[facility] [address] [place], [address] Hematocrit (Bld) [Volume fraction] 27.2 % Low 37-47 [facility] Comment on above: Order Comment: UTOx2 PHLEBS, PATIENTS NURSE ANH INFORMED. Performed By: #### L 501.5200, L501.2300, L100.0100, L500.4050 ####[facility] [address] [place], [address] Hemoglobin (Bld) [Mass/Vol] 8.5 g/dL Low 12.0-15.0 [facility] Comment on above: Order Comment: UTOx2 PHLEBS, PATIENTS NURSE ANH INFORMED. Performed By: #### L 501.5200, L501.2300, L100.0100, L500.4050 ####[facility] [address] [place], [address] IG% 1.300 High 0.0-0.9 [facility] Comment on above: Order Comment: UTOx2 PHLEBS, PATIENTS NURSE ANH INFORMED. Result Comment: IG% - Immature Granulocytes (promyelocytes, myelocytes andmetamyelocytes) > 1% indicates that a LEFT SHIFT is Present. Performed By: #### L 501.5200, L501.2300, L100.0100, L500.4050 ####[facility] [address] [place], [address] Lymphocytes/100 WBC (Bld) 10.4 % Low 19-41 [facility] Comment on above: Order Comment: UTOx2 PHLEBS, PATIENTS NURSE ANH INFORMED. Performed By: #### L 501.5200, L501.2300, L100.0100, L500.4050 ####[facility] [address] [place], [address] MCH (RBC) [Entitic mass] 28.0 pg Normal 27.0-32.0 [facility] Comment on above: Order Comment: UTOx2 PHLEBS, PATIENTS NURSE ANH INFORMED. Performed By: #### L 501.5200, L501.2300, L100.0100, L500.4050 ####[facility] [address] [place], [address] MCHC (RBC) [Mass/Vol] 31.3 g/dL Low 32-36 [facility] Comment on above: Order Comment: UTOx2 PHLEBS, PATIENTS NURSE ANH INFORMED. Performed By: #### L 501.5200, L501.2300, L100.0100, L500.4050 ####[facility] [address] [place], [address] MCV (RBC) [Entitic vol] 89.5 fL Normal 81-99 [facility] Comment on above: Order Comment: UTOx2 PHLEBS, PATIENTS NURSE ANH INFORMED. Performed By: #### L 501.5200, L501.2300, L100.0100, L500.4050 ####[facility] [address] [place], [address] Monocytes/100 WBC (Bld) 6.2 % Normal 0-10 [facility] Comment on above: Order Comment: UTOx2 PHLEBS, PATIENTS NURSE ANH INFORMED. Performed By: #### L 501.5200, L501.2300, L100.0100, L500.4050 ####[facility] [address] [place], [address] Neutrophils/100 WBC (Bld) 80.8 % High 47-70 [facility] Comment on above: Order Comment: UTOx2 PHLEBS, PATIENTS NURSE ANH INFORMED. Performed By: #### L 501.5200, L501.2300, L100.0100, L500.4050 ####[facility] [address] [place], [address] Nucleated RBC (Bld) [#/Vol] 0 10*3/uL Normal 0-5 [facility] Comment on above: Order Comment: UTOx2 PHLEBS, PATIENTS NURSE ANH INFORMED. Performed By: #### L 501.5200, L501.2300, L100.0100, L500.4050 ####[facility] [address] [place], [address] Platelet mean volume (Bld) [Entitic vol] 9.4 fL Normal 6.2-12.0 [facility] Comment on above: Order Comment: UTOx2 PHLEBS, PATIENTS NURSE ANH INFORMED. Performed By: #### L 501.5200, L501.2300, L100.0100, L500.4050 ####[facility] [address] [place], [address] Platelets (Bld) [#/Vol] 135 10*3/uL Low 150-450 [facility] Comment on above: Order Comment: UTOx2 PHLEBS, PATIENTS NURSE ANH INFORMED. Performed By: #### L 501.5200, L501.2300, L100.0100, L500.4050 ####[facility] [address] [place], [address] RBC (Bld) [#/Vol] 3.04 10*6/uL Low 4.2-5.4 [facility] Comment on above: Order Comment: UTOx2 PHLEBS, PATIENTS NURSE ANH INFORMED. Performed By: #### L 501.5200, L501.2300, L100.0100, L500.4050 ####[facility] [address] [place], [address] RDW SD 56.2 fl High 35.1-43.9 [facility] Comment on above: Order Comment: UTOx2 PHLEBS, PATIENTS NURSE ANH INFORMED. Performed By: #### L 501.5200, L501.2300, L100.0100, L500.4050 ####[facility] [address] [place], [address] WBC (Bld) [#/Vol] 4.5 10*3/uL Normal 4.4-11.0 [facility] Comment on above: Order Comment: UTOx2 PHLEBS, PATIENTS NURSE ANH INFORMED. Performed By: #### L 501.5200, L501.2300, L100.0100, L500.4050 ####[facility] [address] [place], [address] Comprehensive Metabolic Prof aron 11-09-2024 Albumin [Mass/Vol] 3.2 g/dL Low 3.4-4.8 [facility] Comment on above: Order Comment: UTOx2 PHLEBS, PATIENTS NURSE ANH INFORMED. Performed By: #### L 501.5200, L501.2300, L100.0100, L500.4050 ####[facility] [address] [place], [address] Albumin/Globulin [Mass ratio] 1.4 {ratio} Normal 0.9-2.4 [facility] Comment on above: Order Comment: UTOx2 PHLEBS, PATIENTS NURSE ANH INFORMED. Performed By: #### L 501.5200, L501.2300, L100.0100, L500.4050 ####[facility] [address] [place], [address] ALK PHOS 101 U/L Normal 35-104 [facility] Comment on above: Order Comment: UTOx2 PHLEBS, PATIENTS NURSE ANH INFORMED. Performed By: #### L 501.5200, L501.2300, L100.0100, L500.4050 ####[facility] [address] [place], [address] ALT [Catalytic activity/Vol] 17 U/L Normal <=34 [facility] Comment on above: Order Comment: UTOx2 PHLEBS, PATIENTS NURSE ANH INFORMED. Performed By: #### L 501.5200, L501.2300, L100.0100, L500.4050 ####[facility] [address] [place], [address] AST [Catalytic activity/Vol] 26 U/L Normal <=31 [facility] Comment on above: Order Comment: UTOx2 PHLEBS, PATIENTS NURSE AHN INFORMED. Result Comment: Hemo lysis present, Results??could be affected.?? Performed By: #### L 501.5200, L501.2300, L100.0100, L500.4050 ####[facility] [address] [place], [address] Bilirubin [Mass/Vol] 0.59 mg/dL Normal 0.00-1.30 [facility] Comment on above: Order Comment: UTOx2 PHLEBS, PATIENTS NURSE ANH INFORMED. Performed By: #### L 501.5200, L501.2300, L100.0100, L500.4050 ####[facility] [address] [place], [address] BUN/CRE 12.1 RATIO Normal 10-20 [facility] Comment on above: Order Comment: UTOx2 PHLEBS, PATIENTS NURSE ANH INFORMED. Performed By: #### L 501.5200, L501.2300, L100.0100, L500.4050 ####[facility] [address] [place], [address] Calcium [Mass/Vol] 9.0 mg/dL Normal 7.6-11.0 [facility] Comment on above: Order Comment: UTOx2 PHLEBS, PATIENTS NURSE ANH INFORMED. Performed By: #### L 501.5200, L501.2300, L100.0100, L500.4050 ####[facility] [address] [place], [address] Chloride [Moles/Vol] 108 mmol/L Normal 98-108 [facility] Comment on above: Order Comment: UTOx2 PHLEBS, PATIENTS NURSE ANH INFORMED. Performed By: #### L 501.5200, L501.2300, L100.0100, L500.4050 ####[facility] [address] [place], [address] CO2 [Moles/Vol] 22.4 mmol/L Normal 21.0-32.0 [facility] Comment on above: Order Comment: UTOx2 PHLEBS, PATIENTS NURSE ANH INFORMED. Performed By: #### L 501.5200, L501.2300, L100.0100, L500.4050 ####[facility] [address] [place], [address] Creatinine [Mass/Vol] 2.39 mg/dL High 0.70-1.20 [facility] Comment on above: Order Comment: UTOx2 PHLEBS, PATIENTS NURSE ANH INFORMED. Performed By: #### L 501.5200, L501.2300, L100.0100, L500.4050 ####[facility] [address] [place], [address] ECRCL 35.18 ml/min Low 50-250 [facility] Comment on above: Order Comment: UTOx2 PHLEBS, PATIENTS NURSE ANH INFORMED. Performed By: #### L 501.5200, L501.2300, L100.0100, L500.4050 ####[facility] [address] [place], [address] GAP 10 Normal 5-15 [facility] Comment on above: Order Comment: UTOx2 PHLEBS, PATIENTS NURSE ANH INFORMED. Performed By: #### L 501.5200, L501.2300, L100.0100, L500.4050 ####[facility] [address] [place], [address] GFR/1.73 sq M.predicted among non-blacks MDRD (S/P/Bld) [Vol rate/Area] 22 mL/min/{1.73_m2} Low >60 [facility] Comment on above: Order Comment: UTOx2 PHLEBS, PATIENTS NURSE ANH INFORMED. Result Comment: mL/m in/1.73m2 CKD-EPI Creatinine Equation (2020) Performed By: #### L 501.5200, L501.2300, L100.0100, L500.4050 ####[facility] [address] [place], [address] Globulin (S) [Mass/Vol] 2.3 g/dL Normal 2.2-4.2 [facility] Comment on above: Order Comment: UTOx2 PHLEBS, PATIENTS NURSE ANH INFORMED. Performed By: #### L 501.5200, L501.2300, L100.0100, L500.4050 ####[facility] [address] [place], [address] Glucose [Mass/Vol] 103 mg/dL High 70-99 [facility] Comment on above: Order Comment: UTOx2 PHLEBS, PATIENTS NURSE ANH INFORMED. Performed By: #### L 501.5200, L501.2300, L100.0100, L500.4050 ####[facility] [address] [place], [address] Potassium [Moles/Vol] 3.7 mmol/L Normal 3.3-5.1 [facility] Comment on above: Order Comment: UTOx2 PHLEBS, PATIENTS NURSE ANH INFORMED. Result Comment: Hemo lysis present, Results??could be affected.?? Performed By: #### L 501.5200, L501.2300, L100.0100, L500.4050 ####[facility] [address] [place], [address] Sodium [Moles/Vol] 141 mmol/L Normal 133-145 [facility] Comment on above: Order Comment: UTOx2 PHLEBS, PATIENTS NURSE ANH INFORMED. Performed By: #### L 501.5200, L501.2300, L100.0100, L500.4050 ####[facility] [address] [place], [address] T PROT 5.5 g/dL Low 5.9-8.4 [facility] Comment on above: Order Comment: UTOx2 PHLEBS, PATIENTS NURSE ANH INFORMED. Performed By: #### L 501.5200, L501.2300, L100.0100, L500.4050 ####[facility] [address] [place], [place], [address] Urea nitrogen [Mass/Vol] 29 mg/dL High 4-19 [facility] Comment on above: Order Comment: UTOx2 PHLEBS, PATIENTS NURSE ANH INFORMED. Performed By: #### L 501.5200, L501.2300, L100.0100, L500.4050 ####[facility] [address] [place], [place], [address] Eosinophil percentageOrdered By: Kaitlyn Winkler on 11-09-2024 Eosinophils/100 WBC (Bld) 1.1 % 0-5 [facility] Erythrocyte distribution wid th ratioOrdered By: Kaitlyn Winkler on 11-09-2024 Erythrocyte distribution width (RBC) [Ratio] 17.3 % High 11.6-14.6 [facility] Erythrocyte distribution wid th standard deviationOrdered By: Kaitlyn Winkler on 11-09-2024 Erythrocyte distribution width (RBC) [Ratio] 56.2 fl High 35.1-43.9 [facility] Hematocrit Auto (Bld) [Volum e fraction]Ordered By: Kaitlyn Winkler on 11-09-2024 Hematocrit (Bld) [Volume fraction] 27.2 % Low 37-47 [facility] Hemoglobin measurementOrdere d By: Kaitlyn Winkler on 11-09-2024 Hemoglobin (Bld) [Mass/Vol] 8.5 g/dL Low 12.0-15.0 [facility] Immature granulocytes/100 WB C Auto (Bld)Ordered By: Kaitlyn Winkler on 11-09-2024 Immature granulocytes/100 WBC (Bld) 1.300 % High 0.0-0.9 [facility] MCV (mean corpuscular volume ) determinationOrdered By: Kaitlyn Winkler on 11-09-2024 MCV (RBC) [Entitic vol] 89.5 fL 81-99 [facility] Magnesiumon 11-09-2024 Magnesium [Mass/Vol] 1.5 mg/dL Normal 1.5-2.2 [facility] Comment on above: Order Comment: UTOx2 PHLEBS, PATIENTS NURSE ANH INFORMED. Performed By: #### L 501.5200, L501.2300, L100.0100, L500.4050 ####[facility] [address] [place], [address] Magnesium measurement (mass/ volume)Ordered By: Kaitlyn Winkler on 11-09-2024 Magnesium (Unsp spec) [Mass/Vol] 1.5 mg/dL 1.5-2.2 [facility] Mean corpuscular hemoglobin (MCH) determinationOrdered By: Kaitlyn Winkler on 11-09-2024 MCH (RBC) [Entitic mass] 28.0 pg 27.0-32.0 [facility] Monocyte percentageOrdered B y: Kaitlyn Winkler on 11-09-2024 Monocytes/100 WBC (Bld) 6.2 % 0-10 [facility] Neutrophil percentageOrdered By: Kaitlyn Winkler on 11-09-2024 Neutrophils/100 WBC (Bld) 80.8 % High 47-70 [facility] No Panel InformationOrdered By: Kaitlyn Winkler on 11-09-2024 26 U/L <32 [facility] Phosphoruson 11-09-2024 Phosphate [Mass/Vol] 4.3 mg/dL Normal 2.7-4.5 [facility] Comment on above: Order Comment: UTOx2 PHLEBS, PATIENTS NURSE ANH INFORMED. Performed By: #### L 501.5200, L501.2300, L100.0100, L500.4050 ####[facility] [address] [place], [address] Platelet countOrdered By: Beatris Winkler on 11-09-2024 Platelets (Bld) [#/Vol] 135 10*3/uL Low 150-450 [facility] RBC Auto (Bld) [#/Vol]Ordere d By: Kaitlyn Winkler on 11-09-2024 RBC (Bld) [#/Vol] 3.04 10*6/uL Low 4.2-5.4 [facility] Serum globulin measurementOr dered By: Kaitlyn Winkler on 11-09-2024 Globulin (S) [Mass/Vol] 2.3 g/dL 2.2-4.2 [facility] [facility] Serum or plasma alanine guerrero otransferase (ALT) measurementOrdered By: Kaitlyn Winkler on 11-09-2024 ALT [Catalytic activity/Vol] 17 U/L <35 [facility] Serum or plasma albumin marisela urement (mass/volume)Ordered By: Kaitlyn Winkler on 11-09-2024 Albumin [Mass/Vol] 3.2 g/dL Low 3.4-4.8 [facility] Serum or plasma albumin/glob ulin mass ratioOrdered By: Kaitlyn Winkler on 11-09-2024 Albumin/Globulin [Mass ratio] 1.4 {ratio} 0.9-2.4 [facility] Serum or plasma alkaline shaheen sphatase measurementOrdered By: Kaitlyn Winkler on 11-09-2024 ALP [Catalytic activity/Vol] 101 U/L 35-104 [facility] Total proteinOrdered By: Keila Winkler on 11-09-2024 Protein [Mass/Vol] 5.5 g/dL Low 5.9-8.4 [facility] Urine Cultureon 11-09-2024 URC #1, 2 Below infectio n level. 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 Submit a new specimen if indicated. Normal [facility] Comment on above: Performed By: #### M 100.2200 ####[facility] [address] [facility] [place], [address] White blood cell (WBC) count Ordered By: Kaitlyn Winkler on 11-09-2024 WBC (Bld) [#/Vol] 4.5 10*3/uL 4.4-11.0 [facility] Basic Metabolic Profile (BMP )on 11-08-2024 BUN/CRE 12.7 RATIO Normal 10-20 [facility] Comment on above: Performed By: #### L 500.2500 ####[facility] [address] [place], [address] Calcium [Mass/Vol] 8.8 mg/dL Normal 7.6-11.0 [facility] Comment on above: Performed By: #### L 500.2500 ####[facility] [address] [place], [address] Chloride [Moles/Vol] 107 mmol/L Normal 98-108 [facility] Comment on above: Performed By: #### L 500.2500 ####[facility] [address] [place], [address] CO2 [Moles/Vol] 21.3 mmol/L Normal 21.0-32.0 [facility] Comment on above: Performed By: #### L 500.2500 ####[facility] [address] [place], [address] Creatinine [Mass/Vol] 2.54 mg/dL High 0.70-1.20 [facility] Comment on above: Performed By: #### L 500.2500 ####[facility] [address] [place], [address] ECRCL 33.11 ml/min Low 50-250 [facility] Comment on above: Performed By: #### L 500.2500 ####[facility] [address] [place], [address] GAP 12 Normal 5-15 [facility] Comment on above: Performed By: #### L 500.2500 ####[facility] [address] [place], [address] GFR/1.73 sq M.predicted among non-blacks MDRD (S/P/Bld) [Vol rate/Area] 21 mL/min/{1.73_m2} Low >60 [facility] Comment on above: Result Comment: mL/m in/1.73m2 CKD-EPI Creatinine Equation (2020) Performed By: #### L 500.2500 ####[facility] [address] [place], [address] Glucose [Mass/Vol] 112 mg/dL High 70-99 [facility] Comment on above: Performed By: #### L 500.2500 ####[facility] [address] [place], [address] Potassium [Moles/Vol] 3.5 mmol/L Normal 3.3-5.1 [facility] Comment on above: Performed By: #### L 500.2500 ####[facility] [address] [place], [address] Sodium [Moles/Vol] 140 mmol/L Normal 133-145 [facility] Comment on above: Performed By: #### L 500.2500 ####[facility] [address] [place], [address] Urea nitrogen [Mass/Vol] 32 mg/dL High 4-19 [facility] Comment on above: Performed By: #### L 500.2500 ####[facility] [address] [place], [address] Bedside Glucoseon 11-08-2024 FINGERSTICK GLU 91 mg/dL Normal 74-106 [facility] Comment on above: Result Comment: HAM GEMENT OF PATIENT CARE PER NURSING PROTOCOL Performed By: #### L 501.080 ####[facility] [address] [place], [address] FINGERSTICK GLU 115 mg/dL High 74-106 [facility] Comment on above: Result Comment: HAM GEMENT OF PATIENT CARE PER NURSING PROTOCOL Performed By: #### L 501.080 ####[facility] [address] [place], [address] FINGERSTICK GLU 98 mg/dL Normal 74-106 [facility] Comment on above: Result Comment: HAM GEMENT OF PATIENT CARE PER NURSING PROTOCOL Performed By: #### L 501.080 ####[facility] [address] [place], [place], [address] FINGERSTICK GLU 95 mg/dL Normal 74-106 [facility] Comment on above: Result Comment: HAM PINEDA OF PATIENT CARE PER NURSING PROTOCOL Performed By: #### L 501.080 ####[facility] [address] [place], [place], [id number] 12 Lead EKGon 11-07-2024 [address] [facility] Abdomen/Pelvis without Conto n 11-07-2024 Abdomen/Pelvis without Cont Normal [facility] Absolute lymphocyte countOrd ered By: Aremn Gonzales on 11-07-2024 Lymphocytes Auto (Unsp spec) [#/Vol] 0.87 10*3/uL 0.83-4.51 [facility] Activated partial thrombopla stin time (aPTT) in platelet poor plasma by coagulation aOrdered By: Armen Gonzales on 11-07-2024 aPTT Coag (PPP) [Time] 24.6 s 24.1-36.2 [facility] Alcohol, Blood (Medical)-Ser umon 11-07-2024 SERUM ETOH < 10.1 Normal <=10.0 [facility] Comment on above: Result Comment: This test is for medical purposes only. The legaldefinition of intoxication varies according to local law. Performed By: #### L 505.5000, L501.9100 ####[facility] [address] [place], [place], [address] Amphetamine detection with 1 000 ng/mL as cutoffOrdered By: Armen Gonzales on 11-07-2024 Amphetamines Screen method >1000 ng/mL Ql (U) Negative < 200 ng/mL [facility] Anion gap in Serum or Plasma Ordered By: Armen Gonzales on 11-07-2024 Anion gap [Moles/Vol] 17 mmol/L High 5-15 [facility] Automated lymphocyte count a s percentage of total leukocytesOrdered By: Armen Gonzales on 11-07-2024 Lymphocytes/100 WBC Auto (Unsp spec) 9.7 % Low 19-41 [facility] BUN/creatinine ratioOrdered By: Armenblue Gonzales on 11-07-2024 Urea nitrogen/Creatinine [Mass ratio] 12.1 mg/mg 10-20 [facility] Basophil percentageOrdered B y: Armen Janet on 11-07-2024 Basophils/100 WBC (Bld) 0.2 % 0-1 [facility] Bedside Glucoseon 11-07-2024 FINGERSTICK GLU 79 mg/dL Normal 74-106 [facility] Comment on above: Result Comment: HAM PINEDA OF PATIENT CARE PER NURSING PROTOCOL Performed By: #### L 501.080 ####[facility] [address] [place], [place], [address] Bilirubin Test strip Ql (U)O rdered By: Armen Gonzales on 11-07-2024 Bilirubin Ql (U) Negative Negative [facility] Bilirubin, totalOrdered By: Armenblue Gonzales on 11-07-2024 Bilirubin [Mass/Vol] 0.60 mg/dL Normal 0.00-1.30 [facility] Comment on above: Performed By: #### L 500.4050, L501.3620 ####[facility] [address] [place], [place], [address] Brain/Head without Contrasto n 11-07-2024 Brain/Head without Contrast Normal [facility] CBC W/Diff, Automatedon 06 Absolute Lymph 0.87 X10 3/uL Normal 0.83-4.51 [facility] Comment on above: Performed By: #### L 300.4310, M200.1000, L100.0100, L501.4021, L503.6005, L300.3900 ####[facility] [address] [place], [address] Absolute Neut 7.6 X10 3/uL Normal 2.0-7.7 [facility] Comment on above: Performed By: #### L 300.4310, M200.1000, L100.0100, L501.4021, L503.6005, L300.3900 ####[facility] [address] [place], [address] Basophils/100 WBC (Bld) 0.2 % Normal 0-1 [facility] Comment on above: Performed By: #### L 300.4310, M200.1000, L100.0100, L501.4021, L503.6005, L300.3900 ####[facility] [address] [place], [address] Eosinophils/100 WBC (Bld) 0.4 % Normal 0-5 [facility] Comment on above: Performed By: #### L 300.4310, M200.1000, L100.0100, L501.4021, L503.6005, L300.3900 ####[facility] [address] [place], [address] Erythrocyte distribution width (RBC) [Ratio] 16.9 % High 11.6-14.6 [facility] Comment on above: Performed By: #### L 300.4310, M200.1000, L100.0100, L501.4021, L503.6005, L300.3900 ####[facility] [address] [place], [address] Hematocrit (Bld) [Volume fraction] 33.7 % Low 37-47 [facility] Comment on above: Performed By: #### L 300.4310, M200.1000, L100.0100, L501.4021, L503.6005, L300.3900 ####[facility] [address] [place], [address] Hemoglobin (Bld) [Mass/Vol] 10.8 g/dL Low 12.0-15.0 [facility] Comment on above: Performed By: #### L 300.4310, M200.1000, L100.0100, L501.4021, L503.6005, L300.3900 ####[facility] [address] [place], [address] IG% 1.600 High 0.0-0.9 [facility] Comment on above: Result Comment: IG% - Immature Granulocytes (promyelocytes, myelocytes andmetamyelocytes) > 1% indicates that a LEFT SHIFT is Present. Performed By: #### L 300.4310, M200.1000, L100.0100, L501.4021, L503.6005, L300.3900 ####[facility] [address] [place], [address] Lymphocytes/100 WBC (Bld) 9.7 % Low 19-41 [facility] Comment on above: Performed By: #### L 300.4310, M200.1000, L100.0100, L501.4021, L503.6005, L300.3900 ####[facility] [address] [place], [address] MCH (RBC) [Entitic mass] 28.0 pg Normal 27.0-32.0 [facility] Comment on above: Performed By: #### L 300.4310, M200.1000, L100.0100, L501.4021, L503.6005, L300.3900 ####[facility] [address] [place], [address] MCHC (RBC) [Mass/Vol] 32.0 g/dL Normal 32-36 [facility] Comment on above: Performed By: #### L 300.4310, M200.1000, L100.0100, L501.4021, L503.6005, L300.3900 ####[facility] [address] [place], [address] MCV (RBC) [Entitic vol] 87.3 fL Normal 81-99 [facility] Comment on above: Performed By: #### L 300.4310, M200.1000, L100.0100, L501.4021, L503.6005, L300.3900 ####[facility] [address] [place], [address] Monocytes/100 WBC (Bld) 4.1 % Normal 0-10 [facility] Comment on above: Performed By: #### L 300.4310, M200.1000, L100.0100, L501.4021, L503.6005, L300.3900 ####[facility] [address] [place], [address] Neutrophils/100 WBC (Bld) 84.0 % High 47-70 [facility] Comment on above: Performed By: #### L 300.4310, M200.1000, L100.0100, L501.4021, L503.6005, L300.3900 ####[facility] [address] [place], [address] Nucleated RBC (Bld) [#/Vol] 0 10*3/uL Normal 0-5 [facility] Comment on above: Performed By: #### L 300.4310, M200.1000, L100.0100, L501.4021, L503.6005, L300.3900 ####[facility] [address] [place], [address] Platelet mean volume (Bld) [Entitic vol] 9.5 fL Normal 6.2-12.0 [facility] Comment on above: Performed By: #### L 300.4310, M200.1000, L100.0100, L501.4021, L503.6005, L300.3900 ####[facility] [address] [place], [address] Platelets (Bld) [#/Vol] 192 10*3/uL Normal 150-450 [facility] Comment on above: Performed By: #### L 300.4310, M200.1000, L100.0100, L501.4021, L503.6005, L300.3900 ####[facility] [address] [place], [address] RBC (Bld) [#/Vol] 3.86 10*6/uL Low 4.2-5.4 [facility] Comment on above: Performed By: #### L 300.4310, M200.1000, L100.0100, L501.4021, L503.6005, L300.3900 ####[facility] [address] [place], [address] RDW SD 53.4 fl High 35.1-43.9 [facility] Comment on above: Performed By: #### L 300.4310, M200.1000, L100.0100, L501.4021, L503.6005, L300.3900 ####[facility] [address] [place], [address] WBC (Bld) [#/Vol] 9.0 10*3/uL Normal 4.4-11.0 [facility] Comment on above: Performed By: #### L 300.4310, M200.1000, L100.0100, L501.4021, L503.6005, L300.3900 ####[facility] [address] [place], [address] CPK Total, Creatine Kinaseon 11-07-2024 CPK TOTAL 54 U/L Normal 24-195 [facility] Comment on above: Performed By: #### L 500.4050, L501.3620 ####[facility] [address] [place], [address] Carbon dioxide, total [Moles /volume] in Central venous bloodOrdered By: Armen Gonzales on 11-07-2024 CO2 [Moles/Vol] 21.2 mmol/L Normal 21.0-32.0 [facility] Comment on above: Performed By: #### L 500.4050, L501.3620 ####[facility] [address] [place], [address] Chest PA and Lateralon 11-07 Chest PA and Lateral Normal [facility] Chloride assayOrdered By: Zachary Gonzales on 11-07-2024 Chloride [Moles/Vol] 101 mmol/L Normal 98-108 [facility] Comment on above: Performed By: #### L 500.4050, L501.3620 ####[facility] [address] [place], [address] Comprehensive Metabolic Prof ilon 11-07-2024 ALK PHOS 120 U/L High 35-104 [facility] Comment on above: Performed By: #### L 500.4050, L501.3620 ####[facility] [address] [place], [address] AST [Catalytic activity/Vol] 38 U/L High <=31 [facility] Comment on above: Result Comment: Hemo lysis present, Results??could be affected.?? Performed By: #### L 500.4050, L501.3620 ####[facility] [address] [place], [address] BUN/CRE 12.1 RATIO Normal 10-20 [facility] Comment on above: Performed By: #### L 500.4050, L501.3620 ####[facility] [address] [place], [address] ECRCL 24.26 ml/min Low 50-250 [facility] Comment on above: Performed By: #### L 500.4050, L501.3620 ####[facility] [address] [place], [address] GAP 17 High 5-15 [facility] Comment on above: Performed By: #### L 500.4050, L501.3620 ####[facility] [address] [place], [place], [address] Potassium [Moles/Vol] 2.6 mmol/L Invalid Interpretation Code 3.3-5.1 [facility] Comment on above: Result Comment: Hemo lysis present, Results??could be affected.??Critical Result(s) Called at: by:??Results read back bysame. Performed By: #### L 500.4050, L501.3620 ####[facility] [address] [place], [address] T PROT 6.7 g/dL Normal 5.9-8.4 [facility] Comment on above: Performed By: #### L 500.4050, L501.3620 ####[facility] [address] [place], [place], [address] Emergency Department Summary on 11-07-2024 Emergency Department Summary Normal [facility] Eosinophil percentageOrdered By: Armen Gonzales on 11-07-2024 Eosinophils/100 WBC (Bld) 0.4 % 0-5 [facility] Erythrocyte distribution wid th ratioOrdered By: Armen Gonzales on 11-07-2024 Erythrocyte distribution width (RBC) [Ratio] 16.9 % High 11.6-14.6 [facility] Erythrocyte distribution wid th standard deviationOrdered By: Armen Gonzales on 11-07-2024 Erythrocyte distribution width (RBC) [Ratio] 53.4 fl High 35.1-43.9 [facility] Glomerular filtration rate ( GFR) estimation/1.73 sq m using serum, plasma, or whole bOrdered By: Armen Gonzales on 11-07-2024 GFR/1.73 sq M.predicted among non-blacks MDRD (S/P/Bld) [Vol rate/Area] 16 mL/min/{1.73_m2} Low >60 [facility] Comment on above: Result Comment: mL/m in/1.73m2 CKD-EPI Creatinine Equation (2020) Performed By: #### L 500.4050, L501.3620 ####[facility] [address] [place], [address] H AND P Exam - Hospitaliston 11-07-2024 H&P Exam - Hospitalist Normal [facility] Hematocrit Auto (Bld) [Volum e fraction]Ordered By: Armen Gonzales on 11-07-2024 Hematocrit (Bld) [Volume fraction] 33.7 % Low 37-47 [facility] Hemoglobin measurementOrdere d By: Armen Gonzales on 11-07-2024 Hemoglobin (Bld) [Mass/Vol] 10.8 g/dL Low 12.0-15.0 [facility] Immature granulocytes/100 WB C Auto (Bld)Ordered By: Armen Gonzales on 11-07-2024 Immature granulocytes/100 WBC (Bld) 1.600 % High 0.0-0.9 [facility] Ketones Test strip Ql (U)Ord ered By: Armenblue Gonzales on 11-07-2024 Ketones Ql (U) Negative Negative [facility] Kidney and Bladderon 025 Kidney and Bladder Normal [facility] L499.0042on 11-07-2024 Trop T High Sen 34 ng/L High <=14 [facility] Comment on above: Performed By: #### L 499.0042 ####[facility] [address] [place], [address] L499.0043on 11-07-2024 Trop T High Sen 33 ng/L High <=14 [facility] Comment on above: Performed By: #### L 499.0043 ####[facility] [address] [place], [address] L501.4021on 11-07-2024 Trop T High Sen 41 ng/L High <=14 [facility] Comment on above: Performed By: #### L 300.4310, M200.1000, L100.0100, L501.4021, L503.6005, L300.3900 ####[facility] [address] [place], [address] Lactic Acidon 11-07-2024 Lactate [Moles/Vol] 1.1 mmol/L Normal 0.0-2.0 [facility] Comment on above: Order Comment: Y Performed By: #### L 300.4310, M200.1000, L100.0100, L501.4021, L503.6005, L300.3900 ####[facility] [address] [facility]. [place], [place], [address] MCV (mean corpuscular volume ) determinationOrdered By: Armen Gonzales on 11-07-2024 MCV (RBC) [Entitic vol] 87.3 fL 81-99 [facility] Magnesiumon 11-07-2024 Magnesium [Mass/Vol] 1.6 mg/dL Normal 1.5-2.2 [facility] Comment on above: Performed By: #### L 501.5200 ####[facility] [address] [place], [place], [address] Magnesium measurement (mass/ volume)Ordered By: Armen oGnzales on 11-07-2024 Magnesium (Unsp spec) [Mass/Vol] 1.6 mg/dL 1.5-2.2 [facility] Mean corpuscular hemoglobin (MCH) determinationOrdered By: Armen Gonzales on 11-07-2024 MCH (RBC) [Entitic mass] 28.0 pg 27.0-32.0 [facility] Monocyte percentageOrdered B y: Armen Gonzales on 11-07-2024 Monocytes/100 WBC (Bld) 4.1 % 0-10 [facility] Mucus LM Ql (Urine sed)Order ed By: Armen Gonzales on 11-07-2024 Mucus Ql (Urine sed) 0 SEEN /hpf [facility] Neutrophil percentageOrdered By: Armen Gonzales on 11-07-2024 Neutrophils/100 WBC (Bld) 84.0 % High 47-70 [facility] Nitrite Test strip Ql (U)Ord ered By: Armen Gonzales on 11-07-2024 Nitrite Ql (U) Negative Negative [facility] No Panel InformationOrdered By: Armen Gonzales on 11-07-2024 Negative < 200 ng/mL [facility] 38 U/L High <32 [facility] Partial Thromboplast Timeon 11-07-2024 aPTT Coag (Bld) [Time] 24.6 s Normal 24.1-36.2 [facility] Comment on above: Performed By: #### L 300.4310, M200.1000, L100.0100, L501.4021, L503.6005, L300.3900 ####[facility] [address] [place], [address] Platelet countOrdered By: Zachary Gonzales on 11-07-2024 Platelets (Bld) [#/Vol] 192 10*3/uL 150-450 [facility] Potassium measurement (mass/ volume)Ordered By: Armen Gonzales on 11-07-2024 Potassium (Unsp spec) [Mass/Vol] 2.6 mmol/L Low 3.3-5.1 [facility] Protein Test strip Ql (U)Ord ered By: Armen Gonzales on 11-07-2024 Protein Ql (U) 100 mg/dl High Negative [facility] Prothrombin Time w/INRon INR Coag (PPP) [Relative time] 0.9 {INR} Normal [facility] Comment on above: Performed By: #### L 300.4310, M200.1000, L100.0100, L501.4021, L503.6005, L300.3900 ####[facility] [address], [address] PT Coag (PPP) [Time] 12.5 s Normal 11.7-14.9 [facility] Comment on above: Performed By: #### L 300.4310, M200.1000, L100.0100, L501.4021, L503.6005, L300.3900 ####[facility] [address] [place], [address] Prothrombin timeOrdered By: Armen Gonzales on 11-07-2024 PT Coag (PPP) [Time] 12.5 s 11.7-14.9 [facility] RBC Auto (Bld) [#/Vol]Ordere d By: Armen Gonzales on 11-07-2024 RBC (Bld) [#/Vol] 3.86 10*6/uL Low 4.2-5.4 [facility] Screening urine fentanyl yulia surementOrdered By: Armen Gonzales on 11-07-2024 fentaNYL Screen Ql (U) Negative [facility] Serum creatinine measurement (mass/volume)Ordered By: Armen Gonzales on 11-07-2024 Creatinine [Mass/Vol] 3.19 mg/dL High 0.70-1.20 [facility] Comment on above: Performed By: #### L 500.4050, L501.3620 ####[facility] [address] [place], [address] Serum globulin measurementOr dered By: Armen Gonzales on 11-07-2024 Globulin (S) [Mass/Vol] 2.9 g/dL Normal 2.2-4.2 [facility] Comment on above: Performed By: #### L 500.4050, L501.3620 ####[facility] [address] [place], [address] Serum glucose measurement (m ass/volume)Ordered By: Armen Gonzales on 11-07-2024 Glucose [Mass/Vol] 94 mg/dL Normal 70-99 [facility] Comment on above: Performed By: #### L 500.4050, L501.3620 ####[facility] [address] [place], [address] Serum or plasma alanine guerrero otransferase (ALT) measurementOrdered By: Armen Gonzales on 11-07-2024 ALT [Catalytic activity/Vol] 23 U/L Normal <=34 [facility] Comment on above: Performed By: #### L 500.4050, L501.3620 ####[facility] [address] [place], [address] Serum or plasma albumin marisela urement (mass/volume)Ordered By: Armen Gonzales on 11-07-2024 Albumin [Mass/Vol] 3.9 g/dL Normal 3.4-4.8 [facility] Comment on above: Performed By: #### L 500.4050, L501.3620 ####[facility] [address] [place], [place], [address] Serum or plasma albumin/glob ulin mass ratioOrdered By: Armen Gonzales on 11-07-2024 Albumin/Globulin [Mass ratio] 1.4 {ratio} Normal 0.9-2.4 [facility] Comment on above: Performed By: #### L 500.4050, L501.3620 ####[facility] [address] [facility] [place], [address] Serum or plasma alkaline shaheen sphatase measurementOrdered By: Armen Gonzales on 11-07-2024 ALP [Catalytic activity/Vol] 120 U/L High 35-104 [facility] Serum or plasma calcium marisela urement (mass/volume)Ordered By: Armen Gonzales on 11-07-2024 Calcium [Mass/Vol] 9.5 mg/dL Normal 7.6-11.0 [facility] Comment on above: Performed By: #### L 500.4050, L501.3620 ####[facility] [address] [facility]. [place], [place], [address] Serum or plasma creatine kin ase activityOrdered By: Armen Gonzales on 11-07-2024 CK [Catalytic activity/Vol] 54 U/L 24-195 [facility] Serum or plasma ethanol marisela urement (mass/volume)Ordered By: Armen Gonzales on 11-07-2024 Ethanol [Mass/Vol] mg/dL <10.1 [facility] Serum or plasma urea nitroge n measurement (mass/volume)Ordered By: Armen Gonzales on 11-07-2024 Urea nitrogen [Mass/Vol] 39 mg/dL High 4-19 [facility] Comment on above: Performed By: #### L 500.4050, L501.3620 ####[facility] [address] [place], [address] Sodium levelOrdered By: Taj Gonzales on 11-07-2024 Sodium [Moles/Vol] 138 mmol/L Normal 133-145 [facility] [facility] Comment on above: Performed By: #### L 500.4050, L501.3620 ####[facility] [address] [place], [place], [address] Spine Cervical without Contr ason 11-07-2024 Spine Cervical without Contras Normal [facility] Squamous epithelial cells de tection in urine sediment by light microscopyOrdered By: Armen Gonzales on 11-07-2024 Epithelial cells.squamous LM Ql (Urine sed) 5-10 SEEN /hpf - [facility] Total proteinOrdered By: Vinita Gonzales on 11-07-2024 Protein [Mass/Vol] 6.7 g/dL 5.9-8.4 [facility] Troponin T.cardiac [Mass/vol ume] in Serum or Plasma by High sensitivity methodOrdered By: Armen Gonzales on 11-07-2024 Troponin T.cardiac High sensitivity method [Mass/Vol] 33 ng/L High <14 [facility] Troponin T.cardiac High sensitivity method [Mass/Vol] 34 ng/L High <14 [facility] Troponin T.cardiac High sensitivity method [Mass/Vol] 41 ng/L High <14 [facility] Urinalysis, Completeon 11-07 RBC 0-5 SEEN Normal 0-5 [facility] Comment on above: Order Comment: GULSHAN CTOR TO SPECIFY Performed By: #### L 400.0001 ####[facility] [address] [place], [address] BACTERIA RARE Normal None Seen [facility] Comment on above: Order Comment: GULSHAN CTOR TO SPECIFY Performed By: #### L 400.0001 ####[facility] [address] [place], [address] EPI,SQUAMOUS 5-10 SEEN Normal 5-10 [facility] Comment on above: Order Comment: GULSHAN CTOR TO SPECIFY Performed By: #### L 400.0001 ####[facility] [address] [place], [address] WBC 0-5 SEEN Normal 0-5 [facility] Comment on above: Order Comment: GULSHAN CTOR TO SPECIFY Performed By: #### L 400.0001 ####[facility] [address] [place], [address] Mucus Ql (Urine sed) 0 SEEN Normal [facility] Comment on above: Order Comment: GULSHAN CTOR TO SPECIFY Performed By: #### L 400.0001 ####[facility] [address] [facility] [address] Urine Drug Screen (VISTA)on 11-07-2024 AMPHETAMINES Negative Normal <1000 ng/mL [facility] Comment on above: Performed By: #### L 505.5000, L501.9100 ####[facility] [address] [facility] [address] BARBITIURATES Negative Normal < 200 ng/mL [facility] Comment on above: Performed By: #### L 505.5000, L501.9100 ####[facility] [address] [place], [address] BENZODIAZIPINE Positive Normal < 200 ng/mL [facility] Comment on above: Result Comment: If c onfirmation testing is needed, a separate order will berequired to send out testing to the reference laboratory. Performed By: #### L 505.5000, L501.9100 ####[facility] [address] [place], [address] BUP Ur Drug Scr Negative Normal < 200 ng/mL [facility] Comment on above: Performed By: #### L 505.5000, L501.9100 ####[facility] [address] [place], [address] COCAINE Negative Normal < 300 ng/mL [facility] Comment on above: Performed By: #### L 505.5000, L501.9100 ####[facility] [address] [place], [address] [facility] Comment on above: Performed By: #### L 505.5000, L501.9100 ####[facility] [address] [place], [address] METHADONE Negative Normal < 300 ng/mL [facility] Comment on above: Performed By: #### L 505.5000, L501.9100 ####[facility] [address] [place], [address] OPIATES Positive Normal < 300 ng/mL [facility] Comment on above: Result Comment: If c onfirmation testing is needed, a separate order will berequired to send out testing to the reference laboratory. Performed By: #### L 505.5000, L501.9100 ####[facility] [address] [place], [address] OXYCODONE Negative Normal < 100 ng/mL [facility] Comment on above: Performed By: #### L 505.5000, L501.9100 ####[facility] [address] [place], [address] PCP Negative Normal < 25 ng/mL [facility] Comment on above: Performed By: #### L 505.5000, L501.9100 ####[facility] [address] [place], [address] THC Negative Normal < 50 ng/mL [facility] Comment on above: Performed By: #### L 505.5000, L501.9100 ####[facility] [address] [place], [address] Urine Sodiumon 11-07-2024 UR NA < [address] [facility] Comment on above: Performed By: #### L 501.5500 ####[facility] [address] [place], [address] Urine clarityOrdered By: Vinita Gonzales on 11-07-2024 Clarity (U) Clear Clear [facility] Urine color determinationOrd ered By: Armen Gonzales on 11-07-2024 Color (U) Yellow Yellow 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 Bacteria identified Cx Nom (U) Positive Abnormal [facility] Urine glucose detectionOrder ed By: Armen Gonzales on 11-07-2024 Glucose Ql (U) Normal mg/dl Normal [facility] Urine leukocyte esterase det ection by dipstickOrdered By: Armen Gonzales on 11-07-2024 Leukocyte esterase Test strip Ql (U) Negative Negative [facility] Urine pHOrdered By: Armen molina on 11-07-2024 pH (U) 6.0 [pH] 5.0 - 8.0 [facility] Urine phencyclidine (PCP) de tectionOrdered By: Armen Gonzales on 11-07-2024 Phencyclidine Ql (U) Negative < 25 ng/mL [facility] Urine sediment bacteria coun t by microscopy (number/high power field)Ordered By: Armne Gonzales on 11-07-2024 Bacteria LM.HPF (Urine sed) [#/Area] RARE /hpf None Seen [facility] Urine sodium measurement (mo les/volume)Ordered By: Kaitlyn Winkler on 11-07-2024 Sodium (U) [Moles/Vol] mmol/L Not Establ. [facility] Urine specific gravity measu rementOrdered By: Armen Gonzales on 11-07-2024 Specific gravity (U) [Rel density] 1.010 1.002-1.030 [facility] Urine urobilinogen measureme ntOrdered By: Aremn Gonzales on 11-07-2024 Urobilinogen Ql (U) Normal mg/dl Normal [facility] White blood cell (WBC) count Ordered By: Armen Gonzales on 11-07-2024 WBC (Bld) [#/Vol] 9.0 10*3/uL 4.4-11.0 [facility] White blood cell countOrdere d By: Armen Gonzales on 11-07-2024 White blood cell count 0-5 SEEN /hpf 0-5 [facility] CNPNon 10-16-2024 CNPN Telephone (HEMAWS) -------- ALFIE HOGAN ([id number]) 1960 F Date Time Provider Department 10/16/24 OJSE DENNISON During your visit today, we recorded [...] underlying B12 deficiency. Order filed. DO Nikhil Beadr Melanie, LPN 10/17/2024 8:48 AM Signed Patient [...] level [R79.89] Order(s):METHYLMALONIC ACID [SQMMA] Order #: [id number] FUTURE Prescriptions as of 10/17/2024 - trospium [...] Status:Closed by AIYANA ACEVEDO on 10/17/24 Normal [facility] CBC W Auto Differential pane l (Bld)on 10-15-2024 Basophils (Bld) [#/Vol] [facility] Basophils/100 WBC (Bld) 0.2 % C [facility] Differential cell count method Nom (Bld) Auto [facility] Eosinophils (Bld) [#/Vol] 0.04 10*3/uL [facility] Eosinophils/100 WBC (Bld) 0.5 % [facility] Erythrocyte distribution width (RBC) [Ratio] 15.9 % High 11.5 - 15.0 % [facility] Hematocrit (Bld) [Volume fraction] 38.1 % 36.0 - 46.0 % [facility] Hemoglobin (Bld) [Mass/Vol] 11.7 g/dL 11.5 - 15.5 g/dL [facility] Immature granulocytes (Bld) [#/Vol] 0.03 10*3/uL [facility] Immature granulocytes/100 WBC (Bld) 0.4 % [facility] Interpretation and review of laboratory results Abnormal [facility] Lymphocytes (Bld) [#/Vol] 1.2 10*3/uL [facility] Lymphocytes/100 WBC (Bld) 14.2 % [facility] MCH (RBC) [Entitic mass] 27 pg 26.0 - 34.0 pg [facility] MCHC (RBC) [Mass/Vol] 30.7 g/dL 30.5 - 36.0 g/dL [facility] MCV (RBC) [Entitic vol] 87.8 fL 80.0 - 100.0 fL [facility] Monocytes (Bld) [#/Vol] 0.54 10*3/uL [facility] Monocytes/100 WBC (Bld) 6.4 % C [facility] Neutrophils (Bld) [#/Vol] 6.61 10*3/uL [facility] Neutrophils/100 WBC (Bld) 78.3 % [facility] Nucleated RBC (Bld) [#/Vol] NINF [facility] Nucleated RBC/100 WBC (Bld) [Ratio] 0 % /100 WBC [facility] Platelet mean volume (Bld) [Entitic vol] 9.3 fL 9.0 - 12.7 fL [facility] Platelets (Bld) [#/Vol] 201 10*3/uL [facility] RBC (Bld) [#/Vol] 4.34 10*6/uL 3.90 - 5.2 0 m/uL [facility] WBC (Bld) [#/Vol] 8.44 10*3/uL [facility] Basophils (Bld) [#/Vol] 10*3/uL Normal <0.11 C [facility] Comment on above: Order Comment: Speci men Type: BLOOD SPECIMEN Ordering Facility: [facility] Address: [address] [place] [address] Performed By: #### 5 7021-8 #### [facility] [id number] [address] [place] [address] OF [facility] Basophils/100 WBC (Bld) 0.2 % Normal C [facility] Comment on above: Order Comment: Speci men Type: BLOOD SPECIMEN Ordering Facility: [facility] Address: [address] [place] [address] Performed By: #### 5 7021-8 #### [facility] CLIA [id number] [address] [place] [address] [place] Differential cell count method Nom (Bld) Auto Normal [facility] Comment on above: Order Comment: Speci men Type: BLOOD SPECIMEN Ordering Facility: [facility] Address: [address] [place] [address] Performed By: #### 5 7021-8 #### [facility] CLIA [id number] [address] [place] [address] [place] Eosinophils (Bld) [#/Vol] 0.04 10*3/uL Normal <0.46 [facility] Comment on above: Order Comment: Speci men Type: BLOOD SPECIMEN Ordering Facility: [facility] Address: [address] [place] [address] Performed By: #### 5 7021-8 #### [facility] CLIA [id number] [address] [place] [address] [place] Eosinophils/100 WBC (Bld) 0.5 % Normal [facility] Comment on above: Order Comment: Speci men Type: BLOOD SPECIMEN Ordering Facility: [facility] Address: [address] [place] [address] Performed By: #### 5 7021-8 #### [facility] CLIA [id number] [address] [place] [address] [place] Erythrocyte distribution width (RBC) [Ratio] 15.9 % High 11.5-15.0 [facility] Comment on above: Order Comment: Speci men Type: BLOOD SPECIMEN Ordering Facility: [facility] Address: [address] [place] [address] Performed By: #### 5 7021-8 #### [facility] CLIA [id number] [address] [place] [address] [place] Hematocrit (Bld) [Volume fraction] 38.1 % Normal 36.0-46.0 [facility] Comment on above: Order Comment: Speci men Type: BLOOD SPECIMEN Ordering Facility: [facility] Address: [address] [place] [address] Performed By: #### 5 7021-8 #### [facility] CLIA [id number] [address] [place] [address] [place] Hemoglobin (Bld) [Mass/Vol] 11.7 g/dL Normal 11.5-15.5 [facility] Comment on above: Order Comment: Speci men Type: BLOOD SPECIMEN Ordering Facility: [facility] Address: [address] [place] [address] Performed By: #### 5 7021-8 #### [facility] CLIA [id number] [address] [place] [address] [place] Immature granulocytes (Bld) [#/Vol] 0.03 10*3/uL Normal <0.10 [facility] Comment on above: Order Comment: Speci men Type: BLOOD SPECIMEN Ordering Facility: [facility] Address: [address] [place] [address] Performed By: #### 5 7021-8 #### [facility] CLIA [id number] [address] [place] [address] [place] Immature granulocytes/100 WBC (Bld) 0.4 % Normal [facility] Comment on above: Order Comment: Speci men Type: BLOOD SPECIMEN Ordering Facility: [facility] Address: [address] [place] [address] Performed By: #### 5 7021-8 #### [facility] CLIA [id number] [address] [place] [address] [place] Lymphocytes (Bld) [#/Vol] 1.20 10*3/uL Normal 1.00-4.00 [facility] Comment on above: Order Comment: Speci men Type: BLOOD SPECIMEN Ordering Facility: [facility] Address: [address] [place] [address] Performed By: #### 5 7021-8 #### [facility] CLIA [id number] [address] [place] [address] STATES [facility] Lymphocytes/100 WBC (Bld) 14.2 % Normal [facility] Comment on above: Order Comment: Speci men Type: BLOOD SPECIMEN Ordering Facility: [facility] Address: [address] [place] [address] Performed By: #### 5 7021-8 #### [facility] CLIA [id number] [address] [place] [address] [place] MCH (RBC) [Entitic mass] 27.0 pg Normal 26.0-34.0 [facility] Comment on above: Order Comment: Speci men Type: BLOOD SPECIMEN Ordering Facility: [facility] Address: [address] [place] [address] Performed By: #### 5 7021-8 #### [id number] [address] [place] [address] [place] MCHC (RBC) [Mass/Vol] 30.7 g/dL Normal 30.5-36.0 [facility] Comment on above: Order Comment: Speci men Type: BLOOD SPECIMEN Ordering Facility: [facility] Address: [address] [place] [address] Performed By: #### 5 7021-8 #### [facility] CLIA [id number] [address] [place] [address] [place] MCV (RBC) [Entitic vol] 87.8 fL Normal 80.0-100.0 C [facility] Comment on above: Order Comment: Speci men Type: BLOOD SPECIMEN Ordering Facility: [facility] Address: [address] [place] [address] Performed By: #### 5 7021-8 #### [facility] CLIA [id number] [address] [place] [address] [place] Monocytes (Bld) [#/Vol] 0.54 10*3/uL Normal <0.87 [facility] Comment on above: Order Comment: Speci men Type: BLOOD SPECIMEN Ordering Facility: [facility] Address: [address] [place] [address] Performed By: #### 5 7021-8 #### [facility] CLIA [id number] [address] [place] [address] [place] Monocytes/100 WBC (Bld) 6.4 % Normal [facility] Comment on above: Order Comment: Speci men Type: BLOOD SPECIMEN Ordering Facility: [facility] Address: [address] [place] [address] Performed By: #### 5 7021-8 #### [facility] CLIA [id number] [address] [place] [address] [place] Neutrophils (Bld) [#/Vol] 6.61 10*3/uL Normal 1.45-7.50 [facility] Comment on above: Order Comment: Speci men Type: BLOOD SPECIMEN Ordering Facility: [facility] Address: [address] [place] [address] Performed By: #### 5 7021-8 #### [facility] CLIA [id number] [address] [place] [address] [place] Neutrophils/100 WBC (Bld) 78.3 % Normal [facility] Comment on above: Order Comment: Speci men Type: BLOOD SPECIMEN Ordering Facility: [facility] Address: [address] [place] [address] Performed By: #### 5 7021-8 #### [facility] CLIA [id number] [address] [place] [address] [place] Nucleated RBC (Bld) [#/Vol] 10*3/uL Normal <0.01 [facility] Comment on above: Order Comment: Speci men Type: BLOOD SPECIMEN Ordering Facility: [facility] Address: [address] [place] [address] Performed By: #### 5 7021-8 #### [facility] CLIA [id number] [address] [place] [address] [place] Nucleated RBC/100 WBC (Bld) [Ratio] 0.0 /100 WBC Normal [facility] Comment on above: Order Comment: Speci men Type: BLOOD SPECIMEN Ordering Facility: [facility] Address: [address] [place] [address] Performed By: #### 5 7021-8 #### [facility] CLIA [id number] [address] [place] [address] [place] Platelet mean volume (Bld) [Entitic vol] 9.3 fL Normal 9.0-12.7 [facility] Comment on above: Order Comment: Speci men Type: BLOOD SPECIMEN Ordering Facility: [facility] Address: [address] [place], [place] [address] Performed By: #### 5 7021-8 #### [facility] CLIA [id number] [address] [place] [address] [place] Platelets (Bld) [#/Vol] 201 10*3/uL Normal 150-400 [facility] Comment on above: Order Comment: Speci men Type: BLOOD SPECIMEN Ordering Facility: [facility] Address: [address] [place] [address] Performed By: #### 5 7021-8 #### [facility] CLIA [id number] [address] [place] [address] [place] RBC (Bld) [#/Vol] 4.34 10*6/uL Normal 3.90-5.20 [facility] Comment on above: Order Comment: Speci men Type: BLOOD SPECIMEN Ordering Facility: [facility] Address: [address] [place] [address] Performed By: #### 5 7021-8 #### [facility] CLIA [id number] [address] [place] [address] [place] WBC (Bld) [#/Vol] 8.44 10*3/uL Normal 3.70-11.00 [facility] Comment on above: Order Comment: Speci men Type: BLOOD SPECIMEN Ordering Facility: [facility] Address: [address] [place] [address] Performed By: #### 5 7021-8 #### [facility] CLIA [id number] [address] [place] CNOVSPon 10-15-2024 CNOVSP Visit (SP) Office (HEMAWS) -------- ALFIE HOGAN ([id number]) 1960 F Date Time Provider Department 10/15/24 [...] any cystic or focal masses. Admitted to [facility] in August for hyperglycemia. Was found [...] fracture sometime 2021. Bone marrow biopsy at ?[facility] 2021. Was started on iron sucrose. [...] FLX DX W/COLLJ SPEC WHEN PFRMD 09/15/2005 [facility] Colonoscopy EGD TRANSORAL BIOPSY SINGLE/MULTIPLE 08/30/2006 [...] bedtime. (Patie (more content not included)... Normal [facility] COPPER BLOODon 10-15-2024 Copper [Mass/Vol] 88 ug/dL Normal 80-155 [facility] Comment on above: Order Comment: Speci men Type: BLOOD SPECIMEN Ordering Facility: [facility] Address: [address] [place] [address] Result Comment: This test was developed, and its performance characteristics determined by the [facility] Department of Pathology and Laboratory Medicine. It has not been cleared or approved by the FDA. The [facility] Department of Pathology and Laboratory Medicine is regulated under CLIA as qualified to perform high-complexity testing. This test is used for clinical purposes. It should not be regarded as investigational or for research. Performed By: #### C OPPER #### [facility] CLIA [id number] [address] [place] [address] [place] Folate SerPl-mCncon 10-16-19 25 Folate [Mass/Vol] 16.3 ng/mL Normal >4.7 [facility] Comment on above: Order Comment: Morenita og Type: BLOOD SPECIMEN Ordering Facility: [facility] Address: [address] [place] [address] Performed By: #### 2 132-9, 2284-8 #### [facility] CLIA [id number] [address] [place] [address] [place] Vit B12 SerPl-ncon 025 Cobalamin (Vitamin B12) [Mass/Vol] 291 pg/mL Normal 232-1245 [facility] Comment on above: Order Comment: Morenita og Type: BLOOD SPECIMEN Ordering Facility: [facility] Address: [address] [place] [address] Performed By: #### 2 132-9, 2284-8 #### [facility] CLIA [id number] [address] [place] [address] [place] Ferritinon 10-01-2024 Ferritin [Mass/Vol] 27 ng/mL Normal 22-378 [facility] Comment on above: Order Comment: ADD O N FERRITIN IBC FROM 09-30-24 PLEASE Performed By: #### L 503.6030, L500.4050, L100.0100, L503.6550, L101.9900, L503.6005 ####[facility] [address] [place], [address] Iron+Iron Binding Capacityon 10-01-2024 Iron [Mass/Vol] 42 ug/dL Low 50-170 [facility] Comment on above: Order Comment: ADD O N FERRITIN IBC FROM 09-30-24 PLEASE Performed By: #### L 503.6030, L500.4050, L100.0100, L503.6550, L101.9900, L503.6005 ####[facility] [address] [place], [address] IRON SATURATION 10.0 Low 13-59 [facility] Comment on above: Order Comment: ADD O N FERRITIN IBC FROM 09-30-24 PLEASE Performed By: #### L 503.6030, L500.4050, L100.0100, L503.6550, L101.9900, L503.6005 ####[facility] [address] [place], [address] TIBC 436 ug/dL Normal 250-450 [facility] Comment on above: Order Comment: ADD O N FERRITIN IBC FROM 09-30-24 PLEASE Performed By: #### L 503.6030, L500.4050, L100.0100, L503.6550, L101.9900, L503.6005 ####[facility] [address] [place], [address] UIBC 394 ug/dL Normal 228-428 [facility] Comment on above: Order Comment: ADD O N FERRITIN IBC FROM 09-30-24 PLEASE Performed By: #### L 503.6030, L500.4050, L100.0100, L503.6550, L101.9900, L503.6005 ####[facility] [address] [place], [address] Absolute lymphocyte countOrd ered By: Junior Salter on 09-30-2024 Lymphocytes Auto (Unsp spec) [#/Vol] 0.65 10*3/uL Low 0.83-4.51 [facility] Anion gap in Serum or Plasma Ordered By: Junior Salter on 09-30-2024 Anion gap [Moles/Vol] 11 mmol/L 5-15 [facility] Automated lymphocyte count a s percentage of total leukocytesOrdered By: Junior Salter on 09-30-2024 Lymphocytes/100 WBC Auto (Unsp spec) 9.4 % Low 19-41 [facility] BUN/creatinine ratioOrdered By: Junior Salter on 09-30-2024 Urea nitrogen/Creatinine [Mass ratio] 14.4 mg/mg 10-20 [facility] Basophil percentageOrdered B y: Junior Salter on 09-30-2024 Basophils/100 WBC (Bld) 0.1 % 0-1 [facility] Bilirubin, totalOrdered By: Junior Salter on 09-30-2024 Bilirubin [Mass/Vol] 0.74 mg/dL 0.00-1.30 [facility] CBC W/Diff, Automatedon 09-03 Absolute Lymph 0.65 X10 3/uL Low 0.83-4.51 [facility] Comment on above: Performed By: #### L 503.6030, L500.4050, L100.0100, L503.6550, L101.9900, L503.6005 ####[facility] [address] [place], [address] Absolute Neut 5.9 X10 3/uL Normal 2.0-7.7 [facility] Comment on above: Performed By: #### L 503.6030, L500.4050, L100.0100, L503.6550, L101.9900, L503.6005 ####[facility] [address] [place], [address] Basophils/100 WBC (Bld) 0.1 % Normal 0-1 [facility] Comment on above: Performed By: #### L 503.6030, L500.4050, L100.0100, L503.6550, L101.9900, L503.6005 ####[facility] [address] [place], [address] Eosinophils/100 WBC (Bld) 0.0 % Normal 0-5 [facility] Comment on above: Performed By: #### L 503.6030, L500.4050, L100.0100, L503.6550, L101.9900, L503.6005 ####[facility] [address] [place], [address] Erythrocyte distribution width (RBC) [Ratio] 13.9 % Normal 11.6-14.6 [facility] Comment on above: Performed By: #### L 503.6030, L500.4050, L100.0100, L503.6550, L101.9900, L503.6005 ####[facility] [address] [place], [address] Hematocrit (Bld) [Volume fraction] 36.7 % Low 37-47 [facility] Comment on above: Performed By: #### L 503.6030, L500.4050, L100.0100, L503.6550, L101.9900, L503.6005 ####[facility] [address] [place], [address] Hemoglobin (Bld) [Mass/Vol] 10.9 g/dL Low 12.0-15.0 [facility] Comment on above: Performed By: #### L 503.6030, L500.4050, L100.0100, L503.6550, L101.9900, L503.6005 ####[facility] [address] [place], [address] IG% 0.400 Normal 0.0-0.9 [facility] Comment on above: Result Comment: IG% - Immature Granulocytes (promyelocytes, myelocytes andmetamyelocytes) > 1% indicates that a LEFT SHIFT is Present. Performed By: #### L 503.6030, L500.4050, L100.0100, L503.6550, L101.9900, L503.6005 ####[facility] [address] [place], [address] Lymphocytes/100 WBC (Bld) 9.4 % Low 19-41 [facility] Comment on above: Performed By: #### L 503.6030, L500.4050, L100.0100, L503.6550, L101.9900, L503.6005 ####[facility] [address] [place], [address] MCH (RBC) [Entitic mass] 26.9 pg Low 27.0-32.0 [facility] Comment on above: Performed By: #### L 503.6030, L500.4050, L100.0100, L503.6550, L101.9900, L503.6005 ####[facility] [address] [place], [address] MCHC (RBC) [Mass/Vol] 29.7 g/dL Low 32-36 [facility] Comment on above: Performed By: #### L 503.6030, L500.4050, L100.0100, L503.6550, L101.9900, L503.6005 ####[facility] [address] [place], [address] MCV (RBC) [Entitic vol] 90.6 fL Normal 81-99 [facility] Comment on above: Performed By: #### L 503.6030, L500.4050, L100.0100, L503.6550, L101.9900, L503.6005 ####[facility] [address] [place], [address] Monocytes/100 WBC (Bld) 4.2 % Normal 0-10 [facility] Comment on above: Performed By: #### L 503.6030, L500.4050, L100.0100, L503.6550, L101.9900, L503.6005 ####[facility] [address] [place], [address] Neutrophils/100 WBC (Bld) 85.9 % High 47-70 [facility] Comment on above: Performed By: #### L 503.6030, L500.4050, L100.0100, L503.6550, L101.9900, L503.6005 ####[facility] [address] [place], [address] Nucleated RBC (Bld) [#/Vol] 0 10*3/uL Normal 0-5 [facility] Comment on above: Performed By: #### L 503.6030, L500.4050, L100.0100, L503.6550, L101.9900, L503.6005 ####[facility] [address] [place], [address] Platelet mean volume (Bld) [Entitic vol] 11.1 fL Normal 6.2-12.0 [facility] Comment on above: Performed By: #### L 503.6030, L500.4050, L100.0100, L503.6550, L101.9900, L503.6005 ####[facility] [address] [place], [address] Platelets (Bld) [#/Vol] 148 10*3/uL Low 150-450 [facility] Comment on above: Performed By: #### L 503.6030, L500.4050, L100.0100, L503.6550, L101.9900, L503.6005 ####[facility] [address] [place], [address] RBC (Bld) [#/Vol] 4.05 10*6/uL Low 4.2-5.4 [facility] Comment on above: Performed By: #### L 503.6030, L500.4050, L100.0100, L503.6550, L101.9900, L503.6005 ####[facility] [address] [place], [address] RDW SD 46.1 fl High 35.1-43.9 [facility] Comment on above: Performed By: #### L 503.6030, L500.4050, L100.0100, L503.6550, L101.9900, L503.6005 ####[facility] [address] [place], [address] WBC (Bld) [#/Vol] 6.9 10*3/uL Normal 4.4-11.0 [facility] Comment on above: Performed By: #### L 503.6030, L500.4050, L100.0100, L503.6550, L101.9900, L503.6005 ####[facility] [address] [place], [address] Carbon dioxide, total [Moles /volume] in Central venous bloodOrdered By: Junior Salter on 09-30-2024 CO2 [Moles/Vol] 28.0 mmol/L 21.0-32.0 [facility] Chest PA and Lateralon 09-30 Chest PA and Lateral Normal [facility] Chloride assayOrdered By: Ug o Salter on 09-30-2024 Chloride [Moles/Vol] 100 mmol/L 98-108 [facility] Comprehensive Metabolic Prof ilon 09-30-2024 Albumin [Mass/Vol] 4.4 g/dL Normal 3.4-4.8 [facility] Comment on above: Performed By: #### L 503.6030, L500.4050, L100.0100, L503.6550, L101.9900, L503.6005 ####[facility] [address] [place], [address] Albumin/Globulin [Mass ratio] 1.9 {ratio} Normal 0.9-2.4 [facility] Comment on above: Performed By: #### L 503.6030, L500.4050, L100.0100, L503.6550, L101.9900, L503.6005 ####[facility] [address] [place], [address] ALK PHOS 93 U/L Normal 35-104 [facility] Comment on above: Performed By: #### L 503.6030, L500.4050, L100.0100, L503.6550, L101.9900, L503.6005 ####[facility] [address] [place], [address] ALT [Catalytic activity/Vol] 22 U/L Normal <=34 [facility] Comment on above: Performed By: #### L 503.6030, L500.4050, L100.0100, L503.6550, L101.9900, L503.6005 ####[facility] [address] [place], [address] AST [Catalytic activity/Vol] 25 U/L Normal <=31 [facility] Comment on above: Result Comment: Hemo lysis present, Results??could be affected.?? Performed By: #### L 503.6030, L500.4050, L100.0100, L503.6550, L101.9900, L503.6005 ####[facility] [address] [place], [address] Bilirubin [Mass/Vol] 0.74 mg/dL Normal 0.00-1.30 [facility] Comment on above: Performed By: #### L 503.6030, L500.4050, L100.0100, L503.6550, L101.9900, L503.6005 ####[facility] [address] [place], [address] BUN/CRE 14.4 RATIO Normal 10-20 [facility] Comment on above: Performed By: #### L 503.6030, L500.4050, L100.0100, L503.6550, L101.9900, L503.6005 ####[facility] [address] [place], [address] Calcium [Mass/Vol] 9.9 mg/dL Normal 7.6-11.0 [facility] Comment on above: Performed By: #### L 503.6030, L500.4050, L100.0100, L503.6550, L101.9900, L503.6005 ####[facility] [address] [place], [address] Chloride [Moles/Vol] 100 mmol/L Normal 98-108 [facility] Comment on above: Performed By: #### L 503.6030, L500.4050, L100.0100, L503.6550, L101.9900, L503.6005 ####[facility] [address] [place], [address] CO2 [Moles/Vol] 28.0 mmol/L Normal 21.0-32.0 [facility] Comment on above: Performed By: #### L 503.6030, L500.4050, L100.0100, L503.6550, L101.9900, L503.6005 ####[facility] [address] [place], [address] Creatinine [Mass/Vol] 1.17 mg/dL Normal 0.70-1.20 [facility] Comment on above: Performed By: #### L 503.6030, L500.4050, L100.0100, L503.6550, L101.9900, L503.6005 ####[facility] [address] [place], [address] GAP 11 Normal 5-15 [facility] Comment on above: Performed By: #### L 503.6030, L500.4050, L100.0100, L503.6550, L101.9900, L503.6005 ####[facility] [address] [place], [address] GFR/1.73 sq M.predicted among non-blacks MDRD (S/P/Bld) [Vol rate/Area] 53 mL/min/{1.73_m2} Low >60 [facility] Comment on above: Result Comment: mL/m in/1.73m2 CKD-EPI Creatinine Equation (2020) Performed By: #### L 503.6030, L500.4050, L100.0100, L503.6550, L101.9900, L503.6005 ####[facility] [address] [place], [address] Globulin (S) [Mass/Vol] 2.3 g/dL Normal 2.2-4.2 [facility] Comment on above: Performed By: #### L 503.6030, L500.4050, L100.0100, L503.6550, L101.9900, L503.6005 ####[facility] [address] [place], [address] Glucose [Mass/Vol] 171 mg/dL High 70-99 [facility] Comment on above: Performed By: #### L 503.6030, L500.4050, L100.0100, L503.6550, L101.9900, L503.6005 ####[facility] [address] [place], [address] Potassium [Moles/Vol] 3.7 mmol/L Normal 3.3-5.1 [facility] Comment on above: Result Comment: Hemo lysis present, Results??could be affected.?? Performed By: #### L 503.6030, L500.4050, L100.0100, L503.6550, L101.9900, L503.6005 ####[facility] [address] [place], [address] Sodium [Moles/Vol] 139 mmol/L Normal 133-145 [facility] Comment on above: Performed By: #### L 503.6030, L500.4050, L100.0100, L503.6550, L101.9900, L503.6005 ####[facility] [address] [place], [address] T PROT 6.6 g/dL Normal 5.9-8.4 [facility] Comment on above: Performed By: #### L 503.6030, L500.4050, L100.0100, L503.6550, L101.9900, L503.6005 ####[facility] [address] [place], [place], [address] Urea nitrogen [Mass/Vol] 17 mg/dL Normal 4-19 [facility] Comment on above: Performed By: #### L 503.6030, L500.4050, L100.0100, L503.6550, L101.9900, L503.6005 ####[facility] [address] [place], [address] Emergency Department Summary on 09-30-2024 Emergency Department Summary Normal [facility] Eosinophil percentageOrdered By: Junior Salter on 09-30-2024 Eosinophils/100 WBC (Bld) 0.0 % 0-5 [facility] Erythrocyte Sed Rateon 09-30 SED RATE < 1 Normal 0-30 [facility] Comment on above: Performed By: #### L 503.6030, L500.4050, L100.0100, L503.6550, L101.9900, L503.6005 ####[facility] [address] [place], [address] Erythrocyte distribution wid th ratioOrdered By: Junior Salter on 09-30-2024 Erythrocyte distribution width (RBC) [Ratio] 13.9 % 11.6-14.6 [facility] Erythrocyte distribution wid th standard deviationOrdered By: Juniorunique Garayo on 09-30-2024 Erythrocyte distribution width (RBC) [Ratio] 46.1 fl High 35.1-43.9 [facility] Erythrocyte sedimentation ra teOrdered By: Juniorunique Salter on 09-30-2024 ESR (Bld) [Velocity] mm/h 0-30 [facility] Glomerular filtration rate ( GFR) estimation/1.73 sq m using serum, plasma, or whole bOrdered By: Junior Salter on 09-30-2024 GFR/1.73 sq M.predicted among non-blacks MDRD (S/P/Bld) [Vol rate/Area] 53 mL/min/{1.73_m2} Low >60 [facility] Hematocrit Auto (Bld) [Volum e fraction]Ordered By: [facility] 09-[facility]24 Hematocrit (Bld) [Volume fraction] 36.7 % Low 37-47 [facility] Hemoglobin measurementOrdere d By: Junior Salter on 09-30-2024 Hemoglobin (Bld) [Mass/Vol] 10.9 g/dL Low 12.0-15.0 [facility] Immature granulocytes/100 WB C Auto (Bld)Ordered By: [facility] on 09-30-2024 Immature granulocytes/100 WBC (Bld) 0.400 % 0.0-0.9 [facility] Iron measurement (mass/mass) Ordered By: [facility] on 09-30-2024 Iron (Unsp spec) [Mass/Mass] 42 ug/dL Low 50-170 [facility] Lactic Acidon 09-30-2024 Lactate [Moles/Vol] 2.3 mmol/L Invalid Interpretation Code 0.0-2.0 [facility] Comment on above: Order Comment: Y Result Comment: Crit ical Result(s) Called at: 2012 by: LETICIA ROTH??Results read back by same. Performed By: #### L 503.6030, L500.4050, L100.0100, L503.6550, L101.9900, L503.6005 ####[facility] [address] [place], [address] MCV (mean corpuscular volume ) determinationOrdered By: Junior Salter on 09-30-2024 MCV (RBC) [Entitic vol] 90.6 fL 81-99 [facility] Mean corpuscular hemoglobin (MCH) determinationOrdered By: Juniorunique Salter on 09-30-2024 MCH (RBC) [Entitic mass] 26.9 pg Low 27.0-32.0 [facility] Monocyte percentageOrdered B y: Juniorunique Salter on 09-30-2024 Monocytes/100 WBC (Bld) 4.2 % 0-10 [facility] Neutrophil percentageOrdered By: Juniorunique Salter on 09-30-2024 Neutrophils/100 WBC (Bld) 85.9 % High 47-70 [facility] No Panel InformationOrdered By: Juniorunique Salter on 09-30-2024 25 U/L <32 [facility] 394 ug/dL 228-428 [facility] Platelet countOrdered By: Lefty Salter on 09-30-2024 Platelets (Bld) [#/Vol] 148 10*3/uL Low 150-450 [facility] Potassium measurement (mass/ volume)Ordered By: Juniorunique Salter on 09-30-2024 Potassium (Unsp spec) [Mass/Vol] 3.7 mmol/L 3.3-5.1 [facility] RBC Auto (Bld) [#/Vol]Ordere d By: Juniorunique Salter on 09-30-2024 RBC (Bld) [#/Vol] 4.05 10*6/uL Low 4.2-5.4 [facility] Serum creatinine measurement (mass/volume)Ordered By: Junior Salter on 09-30-2024 Creatinine [Mass/Vol] 1.17 mg/dL 0.70-1.20 [facility] Serum globulin measurementOr dered By: Junior Salter on 09-30-2024 Globulin (S) [Mass/Vol] 2.3 g/dL 2.2-4.2 [facility] Serum glucose measurement (m ass/volume)Ordered By: Junior Salter on 09-30-2024 Glucose [Mass/Vol] 171 mg/dL High 70-99 [facility] Serum or plasma alanine guerrero otransferase (ALT) measurementOrdered By: Junior Salter on 09-30-2024 ALT [Catalytic activity/Vol] 22 U/L <35 [facility] Serum or plasma albumin marisela urement (mass/volume)Ordered By: Junior Salter on 09-30-2024 Albumin [Mass/Vol] 4.4 g/dL 3.4-4.8 [facility] Serum or plasma albumin/glob ulin mass ratioOrdered By: Junior Salter on 09-30-2024 Albumin/Globulin [Mass ratio] 1.9 {ratio} 0.9-2.4 [facility] Serum or plasma alkaline shaheen sphatase measurementOrdered By: Junior Salter 09-30-2024 ALP [Catalytic activity/Vol] 93 U/L 35-104 [facility] Serum or plasma calcium marisela urement (mass/volume)Ordered By: Junior Salter 09-30-2024 Calcium [Mass/Vol] 9.9 mg/dL 7.6-11.0 [facility] Serum or plasma ferritin yulia surement (mass/volume)Ordered By: Junior Salter 09-30-2024 Ferritin [Mass/Vol] 27 ng/mL 22-378 [facility] Serum or plasma iron saturat ion measurement (mass fraction)Ordered By: Junior Salter 09-30-2024 Iron saturation [Mass fraction] 10.0 % Low 13-59 [facility] Serum or plasma urea nitroge n measurement (mass/volume)Ordered By: Junior Salter 09-30-2024 Urea nitrogen [Mass/Vol] 17 mg/dL 4-19 [facility] Sodium levelOrdered By: Junior Salter 09-30-2024 Sodium [Moles/Vol] 139 mmol/L 133-145 [facility] Total proteinOrdered By: Junior Salter on 09-30-2024 Protein [Mass/Vol] 6.6 g/dL 5.9-8.4 [facility] White blood cell (WBC) count Ordered By: Junior Salter on 09-30-2024 WBC (Bld) [#/Vol] 6.9 10*3/uL 4.4-11.0 [facility] HH, Hemoglobin AND Hematocri ton 08-19-2024 Hematocrit (Bld) [Volume fraction] 33.0 % Low [address] [place] [address] Comment on above: Order Comment: Order Date: 08/19/24Order Info: [id number] - HH Performed By: #### L 100.0600 ####[facility] [address] [place], [address] Hemoglobin (Bld) [Mass/Vol] 9.7 g/dL Low 12.0-15.0 [facility] Comment on above: Order Comment: Order Date: 08/19/24Order Info: [id number] - HH Performed By: #### L 100.0600 ####[facility] [address] [place], [address] Hematocrit Auto (Bld) [Volum e fraction]Ordered By: Corin Mariscal on 08-19-2024 Hematocrit (Bld) [Volume fraction] 33.0 % Low [address] [place] [address] Automated blood hematocrit (percentage) 33.0 % Low [address] [place] [address] Hemoglobin measurementOrdere d By: Corin Mariscal on 08-19-2024 Hemoglobin (Bld) [Mass/Vol] 9.7 g/dL Low 12.0-15.0 [facility] Hemoglobin measurement 9.7 g/dL Low 12.0-15.0 [facility] Culture, Blood (WB)on 2024 CUB Blood cultures x2, f rom two different sites No growth in [address] [facility] Comment on above: Performed By: #### M 200.1000 ####[facility] [address] [place], [address] CUB Blood cultures x2, f rom two different sites No growth in [address] [facility] Comment on above: Performed By: #### L 100.0100, L503.6005, L300.4310, M200.1000, L300.3900, L500.4050 ####[facility] [address] [place], [address] Absolute lymphocyte countOrd ered By: Beck Lee on 08-13-2024 Lymphocytes Auto (Unsp spec) [#/Vol] 0.80 10*3/uL Low 0.83-4.51 [facility] Absolute neutrophil countOrd ered By: Beck Lee on 08-13-2024 Absolute neutrophil count 2.1 X10^3/uL 2.0-7.7 [facility] Anion gap [Moles/Vol]Ordered By: Beck Lee on 08-13-2024 Anion gap in Serum or Plasma 6 - [facility] Anion gap in Serum or Plasma Ordered By: Beck Lee on 08-13-2024 Anion gap [Moles/Vol] 6 mmol/L 10-16 [facility] Automated lymphocyte count a s percentage of total leukocytesOrdered By: Beck Lee on 08-13-2024 Lymphocytes/100 WBC Auto (Unsp spec) 24.4 % - [facility] BUN/creatinine ratioOrdered By: Beck Lee on 08-13-2024 Urea nitrogen/Creatinine [Mass ratio] 19.7 mg/mg - [facility] BUN/creatinine ratio 19.7 RATIO - [facility] Basic Metabolic Profile (BMP )on 08-13-2024 BUN/CRE 19.7 RATIO Normal - [facility] Comment on above: Performed By: #### L 100.0100, L500.2500 ####[facility] [address] [facility] [address] Calcium [Mass/Vol] 8.9 mg/dL Normal 7.6-11.0 [facility] Comment on above: Performed By: #### L 100.0100, L500.2500 ####[facility] [address] [place], [address] Chloride [Moles/Vol] 100 mmol/L Normal 98-108 [facility] Comment on above: Performed By: #### L 100.0100, L500.2500 ####[facility] [address] [place], [address] CO2 [Moles/Vol] 34.4 mmol/L High 21.0-32.0 [facility] Comment on above: Performed By: #### L 100.0100, L500.2500 ####[facility] [address] [place], [address] Creatinine [Mass/Vol] 0.87 mg/dL Normal 0.70-1.20 [facility] Comment on above: Performed By: #### L 100.0100, L500.2500 ####[facility] [address] [place], [address] ECRCL 94.60 ml/min Normal 50-250 [facility] Comment on above: Performed By: #### L 100.0100, L500.2500 ####[facility] [address] [place], [address] GAP 6 Normal 5-15 [facility] Comment on above: Performed By: #### L 100.0100, L500.2500 ####[facility] [address] [place], [address] GFR/1.73 sq M.predicted among non-blacks MDRD (S/P/Bld) [Vol rate/Area] 76 mL/min/{1.73_m2} Normal >60 [facility] Comment on above: Result Comment: mL/m in/1.73m2 CKD-EPI Creatinine Equation (2020) Performed By: #### L 100.0100, L500.2500 ####[facility] [address] [place], [address] Glucose [Mass/Vol] 234 mg/dL High 70-99 [facility] Comment on above: Performed By: #### L 100.0100, L500.2500 ####[facility] [address] [place], [address] Potassium [Moles/Vol] 3.7 mmol/L Normal 3.3-5.1 [facility] Comment on above: Performed By: #### L 100.0100, L500.2500 ####[facility] [address] [place], [address] Sodium [Moles/Vol] 140 mmol/L Normal 133-145 [facility] Comment on above: Performed By: #### L 100.0100, L500.2500 ####[facility] [address] [place], [address] Urea nitrogen [Mass/Vol] 17 mg/dL Normal 4-19 [facility] Comment on above: Performed By: #### L 100.0100, L500.2500 ####[facility] [address] [place], [address] Basophil percentageOrdered B y: Beck Lee on 08-13-2024 Basophils/100 WBC (Bld) 0.3 % 0-1 [facility] Basophil percentage 0.3 % 0-1 [facility] Bedside Glucoseon 08-13-2024 FINGERSTICK GLU 294 mg/dL High 74-106 [facility] Comment on above: Result Comment: HAM GEMENT OF PATIENT CARE PER NURSING PROTOCOL Performed By: #### L 501.080 ####[facility] [address] [place], [address] FINGERSTICK GLU 251 mg/dL High 74-106 [facility] Comment on above: Result Comment: HAM GEMENT OF PATIENT CARE PER NURSING PROTOCOL Performed By: #### L 501.080 ####[facility] [address] [place], [address] CBC W/Diff, Automatedon 08-02 Absolute Lymph 0.80 X10 3/uL Low 0.83-4.51 [facility] Comment on above: Performed By: #### L 100.0100, L500.2500 ####[facility] [address] [place], [address] Absolute Neut 2.1 X10 3/uL Normal 2.0-7.7 [facility] Comment on above: Performed By: #### L 100.0100, L500.2500 ####[facility] [address] [place], [address] Basophils/100 WBC (Bld) 0.3 % Normal 0-1 [facility] Comment on above: Performed By: #### L 100.0100, L500.2500 ####[facility] [address] [place], [address] Eosinophils/100 WBC (Bld) 1.2 % Normal 0-5 [facility] Comment on above: Performed By: #### L 100.0100, L500.2500 ####[facility] [address] [place], [address] Erythrocyte distribution width (RBC) [Ratio] 15.3 % High 11.6-14.6 [facility] Comment on above: Performed By: #### L 100.0100, L500.2500 ####[facility] [address] [place], [address] Hematocrit (Bld) [Volume fraction] 28.7 % Low 37-47 [facility] Comment on above: Performed By: #### L 100.0100, L500.2500 ####[facility] [address] [place], [address] Hemoglobin (Bld) [Mass/Vol] 8.2 g/dL Low 12.0-15.0 [facility] Comment on above: Performed By: #### L 100.0100, L500.2500 ####[facility] [address] [place], [address] IG% 0.300 Normal 0.0-0.9 [facility] Comment on above: Result Comment: IG% - Immature Granulocytes (promyelocytes, myelocytes andmetamyelocytes) > 1% indicates that a LEFT SHIFT is Present. Performed By: #### L 100.0100, L500.2500 ####[facility] [address] [place], [address] Lymphocytes/100 WBC (Bld) 24.4 % Normal 19-41 [facility] Comment on above: Performed By: #### L 100.0100, L500.2500 ####[facility] [address] [place], [address] MCH (RBC) [Entitic mass] 27.5 pg Normal 27.0-32.0 [facility] Comment on above: Performed By: #### L 100.0100, L500.2500 ####[facility] [address] [place], [address] MCHC (RBC) [Mass/Vol] 28.6 g/dL Low 32-36 [facility] Comment on above: Performed By: #### L 100.0100, L500.2500 ####[facility] [address] [place], [address] MCV (RBC) [Entitic vol] 96.3 fL Normal 81-99 [facility] Comment on above: Performed By: #### L 100.0100, L500.2500 ####[facility] [address] [place], [address] Monocytes/100 WBC (Bld) 8.8 % Normal 0-10 [facility] Comment on above: Performed By: #### L 100.0100, L500.2500 ####[facility] [address] [place], [address] Neutrophils/100 WBC (Bld) 65.0 % Normal 47-70 [facility] Comment on above: Performed By: #### L 100.0100, L500.2500 ####[facility] [address] [place], [address] Nucleated RBC (Bld) [#/Vol] 0 10*3/uL Normal 0-5 [facility] Comment on above: Performed By: #### L 100.0100, L500.2500 ####[facility] [address] [place], [address] Platelet mean volume (Bld) [Entitic vol] 10.1 fL Normal 6.2-12.0 [facility] Comment on above: Performed By: #### L 100.0100, L500.2500 ####[facility] [address] [place], [address] Platelets (Bld) [#/Vol] 131 10*3/uL Low 150-450 [facility] Comment on above: Performed By: #### L 100.0100, L500.2500 ####[facility] [address] [place], [address] RBC (Bld) [#/Vol] 2.98 10*6/uL Low 4.2-5.4 [facility] Comment on above: Performed By: #### L 100.0100, L500.2500 ####[facility] [address] [place], [address] RDW SD 53.9 fl High 35.1-43.9 [facility] Comment on above: Performed By: #### L 100.0100, L500.2500 ####[facility] [address] [place], [address] WBC (Bld) [#/Vol] 3.3 10*3/uL Low 4.4-11.0 [facility] Comment on above: Performed By: #### L 100.0100, L500.2500 ####[facility] [address] [place], [address] Calcium [Mass/Vol]Ordered By : Beck Lee on 08-13-2024 Serum or plasma calcium measurement (mass/volume) 8.9 mg/dL 7.6-11.0 [facility] Carbon dioxide, total [Moles /volume] in Central venous bloodOrdered By: Beck Lee on 08-13-2024 CO2 [Moles/Vol] 34.4 mmol/L High 21.0-32.0 [facility] Carbon dioxide, total [Moles/volume] in Central venous blood 34.4 mmol/L High 21.0-32.0 [facility] Chloride assayOrdered By: Arias Lee on 08-13-2024 Chloride [Moles/Vol] 100 mmol/L 98-108 [facility] Chloride assay 100 mmol/L 98-108 [facility] Creatinine [Mass/Vol]Ordered By: Beck Lee on 08-13-2024 Serum creatinine measurement (mass/volume) 0.87 mg/dL 0.70-1.20 [facility] Discharge Instructionon 08-02 Discharge Instruction Normal [facility] Eosinophil percentageOrdered By: Beck Lee on 08-13-2024 Eosinophils/100 WBC (Bld) 1.2 % 0-5 [facility] Eosinophil percentage 1.2 % 0-5 [facility] Erythrocyte distribution wid th (RBC) [Entitic vol]Ordered By: Beck Lee on 08-13-2024 Erythrocyte distribution width standard deviation 53.9 fl High 35.1-43.9 [facility] Erythrocyte distribution wid th (RBC) [Ratio]Ordered By: Beck Lee on 08-13-2024 Erythrocyte distribution width ratio 15.3 % High 11.6-14.6 [facility] Erythrocyte distribution wid th ratioOrdered By: Beck Lee on 08-13-2024 Erythrocyte distribution width (RBC) [Ratio] 15.3 % High 11.6-14.6 [facility] Erythrocyte distribution wid th standard deviationOrdered By: Beck Lee on 08-13-2024 Erythrocyte distribution width (RBC) [Ratio] 53.9 fl High 35.1-43.9 [facility] Estimation of creatinine delvis aranceOrdered By: Beck Lee on 08-13-2024 Estimation of creatinine clearance 94.60 ml/min 50-250 [facility] GFR/1.73 sq M.predicted madeline g non-blacks MDRD (S/P/Bld) [Vol rate/Area]Ordered By: Beck Lee on 08-13-2024 Glomerular filtration rate (GFR) estimation/1.73 sq m using serum, plasma, or whole b [address] >60 [facility] Glomerular filtration rate ( GFR) estimation/1.73 sq m using serum, plasma, or whole bOrdered By: Beck Lee on 08-13-2024 GFR/1.73 sq M.predicted among non-blacks MDRD (S/P/Bld) [Vol rate/Area] 76 mL/min/{1.73_m2} >60 [facility] Glucose [Mass/Vol]Ordered By : Beck Lee on 08-13-2024 Serum glucose measurement (mass/volume) 234 mg/dL High 70-99 [facility] Glucose measurement at bedsi deOrdered By: Thong Sultana on 08-13-2024 Glucose [Mass/Vol] 294 mg/dL High 74-106 [facility] Glucose measurement at bedside 294 mg/dL High 74-106 [facility] HH, Hemoglobin AND Hematocri ton 08-13-2024 Hematocrit (Bld) [Volume fraction] 29.9 % Low 3747 [facility] Comment on above: Performed By: #### L 100.0600 ####[facility] [address] [place], [place], [id number]) Hemoglobin (Bld) [Mass/Vol] 8.5 g/dL Low 12.0-15.0 [facility] Comment on above: Performed By: #### L 100.0600 ####[facility] [address] [place], [address] Hematocrit Auto (Bld) [Volum e fraction]Ordered By: Thong Sultana on 08-13-2024 Hematocrit (Bld) [Volume fraction] 29.9 % Low [address] [place] [address] Automated blood hematocrit (percentage) 29.9 % Low [address] [place] [address] Hemoglobin measurementOrdere d By: Thong Sultana on 08-13-2024 Hemoglobin (Bld) [Mass/Vol] 8.5 g/dL Low 12.0-15.0 [facility] Hemoglobin measurement 8.5 g/dL Low 12.0-15.0 [facility] Immature granulocytes/100 WB C Auto (Bld)Ordered By: Beck Lee on 08-13-2024 Immature granulocytes/100 WBC (Bld) 0.300 % 0.0-0.9 [facility] Automated immature granulocyte percentage 0.300 % 0.0-0.9 [facility] Lymphocytes Auto (Unsp spec) [#/Vol]Ordered By: Beck Lee on 08-13-2024 Absolute lymphocyte count 0.80 X10^3/uL Low 0.83-4.51 [facility] Lymphocytes/100 WBC Auto (Un sp spec)Ordered By: Beck Lee on 08-13-2024 Automated lymphocyte count as percentage of total leukocytes 24.4 % 19-41 [facility] MCV (RBC) [Entitic vol]Order ed By: Beck Lee on 08-13-2024 MCV (mean corpuscular volume) determination 96.3 fL 81-99 [facility] MCV (mean corpuscular volume ) determinationOrdered By: Beck Lee on 08-13-2024 MCV (RBC) [Entitic vol] 96.3 fL 81-99 [facility] Mean corpuscular hemoglobin (MCH) determinationOrdered By: Beck Lee on 08-13-2024 MCH (RBC) [Entitic mass] 27.5 pg 27.0-32.0 [facility] Mean corpuscular hemoglobin (MCH) determination 27.5 pg 27.0-32.0 [facility] Mean corpuscular hemoglobin concentration (MCHC) determinationOrdered By: Beck Lee on 08-13-2024 Mean corpuscular hemoglobin concentration (MCHC) determination 28.6 g/dL Low 32-36 [facility] Mean platelet volume determi nationOrdered By: Beck Lee on 08-13-2024 Mean platelet volume determination 10.1 fl 6.2-12.0 [facility] Monocyte percentageOrdered B y: Beck Lee on 08-13-2024 Monocytes/100 WBC (Bld) 8.8 % 0-10 [facility] Monocyte percentage 8.8 % 0-10 [facility] Neutrophil percentageOrdered By: Beck Lee on 08-13-2024 Neutrophils/100 WBC (Bld) 65.0 % 47-70 [facility] Neutrophil percentage 65.0 % 47-70 [facility] Nucleated red blood cell per centageOrdered By: Beck Lee on 08-13-2024 Nucleated red blood cell percentage 0 % 0-5 [facility] Platelet countOrdered By: Arias Lee on 08-13-2024 Platelets (Bld) [#/Vol] 131 10*3/uL Low 150-450 [facility] Platelet count 131 K/mm3 Low 150-450 [facility] Potassium (Unsp spec) [Mass/ Vol]Ordered By: Beck Lee on 08-13-2024 Potassium measurement (mass/volume) 3.7 mmol/L 3.3-5.1 [facility] Potassium measurement (mass/ volume)Ordered By: Beck Lee on 08-13-2024 Potassium (Unsp spec) [Mass/Vol] 3.7 mmol/L 3.3-5.1 [facility] RBC Auto (Bld) [#/Vol]Ordere d By: Beck Lee on 08-13-2024 RBC (Bld) [#/Vol] 2.98 10*6/uL Low 4.2-5.4 [facility] Automated blood erythrocyte count 2.98 M/mm3 Low 4.2-5.4 [facility] Serum creatinine measurement (mass/volume)Ordered By: Beck Lee on 08-13-2024 Creatinine [Mass/Vol] 0.87 mg/dL 0.70-1.20 [facility] Serum glucose measurement (m ass/volume)Ordered By: Beck Lee on 08-13-2024 Glucose [Mass/Vol] 234 mg/dL High 70-99 [facility] Serum or plasma calcium marisela urement (mass/volume)Ordered By: Beck Lee on 08-13-2024 Calcium [Mass/Vol] 8.9 mg/dL 7.6-11.0 [facility] Serum or plasma urea nitroge n measurement (mass/volume)Ordered By: Beck Lee on 08-13-2024 Urea nitrogen [Mass/Vol] 17 mg/dL 09-20 [facility] Sodium levelOrdered By: Miguel Lee on 08-13-2024 Sodium [Moles/Vol] 140 mmol/L 133-145 [facility] Sodium level 140 mmol/L 133-145 [facility] Urea nitrogen [Mass/Vol]Orde red By: Beck Lee on 08-13-2024 Serum or plasma urea nitrogen measurement (mass/volume) 17 mg/dL 09-20 [facility] White blood cell (WBC) count Ordered By: Beck Lee on 08-13-2024 WBC (Bld) [#/Vol] 3.3 10*3/uL Low 4.4-11.0 [facility] White blood cell (WBC) count 3.3 K/mm3 Low 4.4-11.0 [facility] Basic Metabolic Profile (BMP )on 08-12-2024 BUN/CRE 15.2 RATIO Normal 10-20 [facility] Comment on above: Performed By: #### L 500.2500, L100.0100 ####[facility] [address] [place], [address] Calcium [Mass/Vol] 8.8 mg/dL Normal 7.6-11.0 [facility] Comment on above: Performed By: #### L 500.2500, L100.0100 ####[facility] [address] [place], [address] Chloride [Moles/Vol] 102 mmol/L Normal 98-108 [facility] Comment on above: Performed By: #### L 500.2500, L100.0100 ####[facility] [address] [place], [address] CO2 [Moles/Vol] 29.8 mmol/L Normal 21.0-32.0 [facility] Comment on above: Performed By: #### L 500.2500, L100.0100 ####[facility] [address] [place], [address] Creatinine [Mass/Vol] 0.78 mg/dL Normal 0.70-1.20 [facility] Comment on above: Performed By: #### L 500.2500, L100.0100 ####[facility] [address] [place], [address] ECRCL 104.34 ml/min Normal 50-250 [facility] Comment on above: Performed By: #### L 500.2500, L100.0100 ####[facility] [address] [place], [address] GAP 8 Normal 5-15 [facility] Comment on above: Performed By: #### L 500.2500, L100.0100 ####[facility] [address] [place], [address] GFR/1.73 sq M.predicted among non-blacks MDRD (S/P/Bld) [Vol rate/Area] 86 mL/min/{1.73_m2} Normal >60 [facility] Comment on above: Result Comment: mL/m in/1.73m2 CKD-EPI Creatinine Equation (2020) Performed By: #### L 500.2500, L100.0100 ####[facility] [address] [place], [address] Glucose [Mass/Vol] 288 mg/dL High 70-99 [facility] Comment on above: Performed By: #### L 500.2499, L100.0100 ####[facility] [address] [place], [address] Potassium [Moles/Vol] 4.3 mmol/L Normal 3.3-5.1 [facility] Comment on above: Performed By: #### L 500.2500, L100.0100 ####[facility] [address] [place], [address] Sodium [Moles/Vol] 139 mmol/L Normal 133-145 [facility] Comment on above: Performed By: #### L 500.2500, L100.0100 ####[facility] [address] [place], [address] Urea nitrogen [Mass/Vol] 12 mg/dL Normal 4-19 [facility] Comment on above: Performed By: #### L 500.2500, L100.0100 ####[facility] [address] [place], [address] Bedside Glucoseon 08-12-2024 FINGERSTICK GLU 304 mg/dL High 74-106 [facility] Comment on above: Result Comment: HAM GEMENT OF PATIENT CARE PER NURSING PROTOCOL Performed By: #### L 501.080 ####[facility] [address] [place], [address] FINGERSTICK GLU 277 mg/dL High 74-106 [facility] Comment on above: Result Comment: HAM GEMENT OF PATIENT CARE PER NURSING PROTOCOL Performed By: #### L 501.080 ####[facility] [address] [place], [address] FINGERSTICK GLU 241 mg/dL High 74-106 [facility] Comment on above: Result Comment: HAM GEMENT OF PATIENT CARE PER NURSING PROTOCOL Performed By: #### L 501.080 ####[facility] [address] [place], [address] FINGERSTICK GLU 266 mg/dL High 74-106 [facility] Comment on above: Result Comment: HAM GEMENT OF PATIENT CARE PER NURSING PROTOCOL Performed By: #### L 501.080 ####[facility] [address] [place], [address] FINGERSTICK GLU 286 mg/dL High 74-106 [facility] Comment on above: Result Comment: HAM GEMENT OF PATIENT CARE PER NURSING PROTOCOL Performed By: #### L 501.080 ####[facility] [address] [place], [address] FINGERSTICK GLU 300 mg/dL High 74-106 [facility] Comment on above: Result Comment: HAM GEMENT OF PATIENT CARE PER NURSING PROTOCOL Performed By: #### L 501.080 ####[facility] [address] [place], [address] FINGERSTICK GLU 340 mg/dL High 74-106 [facility] Comment on above: Result Comment: HAM GEMENT OF PATIENT CARE PER NURSING PROTOCOL Performed By: #### L 501.080 ####[facility] [address] [place], [address] CBC W/Diff, Automatedon 08-02 BASO STIPPLING 1+ Normal [facility] Comment on above: Performed By: #### L 500.2500, L100.0100 ####[facility] [address] [place], [address] OVALOCYTE 1+ Normal [facility] Comment on above: Performed By: #### L 500.2500, L100.0100 ####[facility] [address] [place], [address] PLT EST SLT DEC Normal [facility] Comment on above: Performed By: #### L 500.2500, L100.0100 ####[facility] [address] [place], [address] Erythrocyte basophilic stipp ling detectionOrdered By: Beck Lee on 08-12-2024 Basophilic stippling LM Ql (Bld) 1+ [facility] Erythrocyte basophilic stippling detection 1+ [facility] Ovalocyte detectionOrdered B y: Beck Lee on 08-12-2024 Ovalocytes LM Ql (Bld) 1+ [facility] Platelet estimateOrdered By: Beck Lee on 08-12-2024 Platelets LM Ql (Bld) SLT DEC ADEQ [facility] Platelets LM Ql (Bld)Ordered By: Beck Lee on 08-12-2024 Platelet estimate SLT DEC ADEQ [facility] Basic Metabolic Profile (BMP )on 08-11-2024 BUN/CRE 13.3 RATIO Normal 10-20 [facility] Comment on above: Performed By: #### L 501.2300, L500.2500, L500.4100, L100.0100, L501.5200 ####[facility] [address] [place], [address] Calcium [Mass/Vol] 9.1 mg/dL Normal 7.6-11.0 [facility] Comment on above: Performed By: #### L 501.2300, L500.2500, L500.4100, L100.0100, L501.5200 ####[facility] [address] [place], [address] Chloride [Moles/Vol] 102 mmol/L Normal 98-108 [facility] Comment on above: Performed By: #### L 501.2300, L500.2500, L500.4100, L100.0100, L501.5200 ####[facility] [address] [place], [address] CO2 [Moles/Vol] 23.1 mmol/L Normal 21.0-32.0 [facility] Comment on above: Performed By: #### L 501.2300, L500.2500, L500.4100, L100.0100, L501.5200 ####[facility] [address] [place], [address] Creatinine [Mass/Vol] 0.91 mg/dL Normal 0.70-1.20 [facility] Comment on above: Performed By: #### L 501.2300, L500.2500, L500.4100, L100.0100, L501.5200 ####[facility] [address] [place], [address] ECRCL 86.96 ml/min Normal 50-250 [facility] Comment on above: Performed By: #### L 501.2300, L500.2500, L500.4100, L100.0100, L501.5200 ####[facility] [address] [place], [address] GAP 15 Normal 5-15 [facility] Comment on above: Performed By: #### L 501.2300, L500.2500, L500.4100, L100.0100, L501.5200 ####[facility] [address] [place], [address] GFR/1.73 sq M.predicted among non-blacks MDRD (S/P/Bld) [Vol rate/Area] 71 mL/min/{1.73_m2} Normal >60 [facility] Comment on above: Result Comment: mL/m in/1.73m2 CKD-EPI Creatinine Equation (2020) Performed By: #### L 501.2300, L500.2500, L500.4100, L100.0100, L501.5200 ####[facility] [address] [place], [address] Glucose [Mass/Vol] 241 mg/dL High 70-99 [facility] Comment on above: Performed By: #### L 501.2300, L500.2500, L500.4100, L100.0100, L501.5200 ####[facility] [address] [place], [address] Potassium [Moles/Vol] 4.1 mmol/L Normal 3.3-5.1 [facility] Comment on above: Result Comment: Hemo lysis present, Results??could be affected.?? Performed By: #### L 501.2300, L500.2500, L500.4100, L100.0100, L501.5200 ####[facility] [address] [place], [address] Sodium [Moles/Vol] 139 mmol/L Normal 133-145 [facility] Comment on above: Performed By: #### L 501.2300, L500.2500, L500.4100, L100.0100, L501.5200 ####[facility] [address] [place], [address] Urea nitrogen [Mass/Vol] 12 mg/dL Normal 4-19 [facility] Comment on above: Performed By: #### L 501.2300, L500.2500, L500.4100, L100.0100, L501.5200 ####[facility] [address] [place], [address] Bedside Glucoseon 08-11-2024 FINGERSTICK GLU 322 mg/dL High [facility] Comment on above: Result Comment: HAM GEMENT OF PATIENT CARE PER NURSING PROTOCOL Performed By: #### L 501.080 ####[facility] [address] [place], [address] FINGERSTICK GLU 223 mg/dL High [address] [place] [address] Comment on above: Result Comment: HAM GEMENT OF PATIENT CARE PER NURSING PROTOCOL Performed By: #### L 501.080 ####[facility] [address] [place], [address] FINGERSTICK GLU 273 mg/dL High [address] [place] [address] Comment on above: Result Comment: HAM GEMENT OF PATIENT CARE PER NURSING PROTOCOL Performed By: #### L 501.080 ####[facility] [address] [place], [address] FINGERSTICK GLU 233 mg/dL High -106 [facility] Comment on above: Result Comment: HAM GEMENT OF PATIENT CARE PER NURSING PROTOCOL Performed By: #### L 501.080 ####[facility] [address] [place], [address] Brain W/WO Contraston 2024 Brain W/WO Contrast Normal [facility] CBC W/Diff, Automatedon 03-1 0-2025 Absolute Lymph 0.82 X10 3/uL Low 0.83-4.51 [facility] Comment on above: Performed By: #### L 501.2300, L500.2500, L500.4100, L100.0100, L501.5200 ####[facility] [address] [place], [address] Absolute Neut 2.6 X10 3/uL Normal 2.0-7.7 [facility] Comment on above: Performed By: #### L 501.2300, L500.2500, L500.4100, L100.0100, L501.5200 ####[facility] [address] [place], [address] Basophils/100 WBC (Bld) 0.3 % Normal 0-1 [facility] Comment on above: Performed By: #### L 501.2300, L500.2500, L500.4100, L100.0100, L501.5200 ####[facility] [address] [place], [address] Eosinophils/100 WBC (Bld) 1.1 % Normal 0-5 [facility] Comment on above: Performed By: #### L 501.2300, L500.2500, L500.4100, L100.0100, L501.5200 ####[facility] [address] [place], [address] Erythrocyte distribution width (RBC) [Ratio] 15.1 % High 11.6-14.6 [facility] Comment on above: Performed By: #### L 501.2300, L500.2500, L500.4100, L100.0100, L501.5200 ####[facility] [address] [place], [address] Hematocrit (Bld) [Volume fraction] 36.1 % Low 37-47 [facility] Comment on above: Performed By: #### L 501.2300, L500.2500, L500.4100, L100.0100, L501.5200 ####[facility] [address] [place], [address] Hemoglobin (Bld) [Mass/Vol] 10.4 g/dL Low 12.0-15.0 [facility] Comment on above: Performed By: #### L 501.2300, L500.2500, L500.4100, L100.0100, L501.5200 ####[facility] [address] [place], [address] IG% 0.500 Normal 0.0-0.9 [facility] Comment on above: Result Comment: IG% - Immature Granulocytes (promyelocytes, myelocytes andmetamyelocytes) > 1% indicates that a LEFT SHIFT is Present. Performed By: #### L 501.2300, L500.2500, L500.4100, L100.0100, L501.5200 ####[facility] [address] [place], [address] Lymphocytes/100 WBC (Bld) 21.8 % Normal 19-41 [facility] Comment on above: Performed By: #### L 501.2300, L500.2500, L500.4100, L100.0100, L501.5200 ####[facility] [address] [place], [address] MCH (RBC) [Entitic mass] 27.4 pg Normal 27.0-32.0 [facility] Comment on above: Performed By: #### L 501.2300, L500.2500, L500.4100, L100.0100, L501.5200 ####[facility] [address] [place], [address] MCHC (RBC) [Mass/Vol] 28.8 g/dL Low 32-36 [facility] Comment on above: Performed By: #### L 501.2300, L500.2500, L500.4100, L100.0100, L501.5200 ####[facility] [address] [place], [address] MCV (RBC) [Entitic vol] 95.0 fL Normal 81-99 [facility] Comment on above: Performed By: #### L 501.2300, L500.2500, L500.4100, L100.0100, L501.5200 ####[facility] [address] [place], [address] Monocytes/100 WBC (Bld) 6.6 % Normal 0-10 [facility] Comment on above: Performed By: #### L 501.2300, L500.2500, L500.4100, L100.0100, L501.5200 ####[facility] [address] [place], [address] Neutrophils/100 WBC (Bld) 69.7 % Normal 47-70 [facility] Comment on above: Performed By: #### L 501.2300, L500.2500, L500.4100, L100.0100, L501.5200 ####[facility] [address] [place], [address] Nucleated RBC (Bld) [#/Vol] 0 10*3/uL Normal 0-5 [facility] Comment on above: Performed By: #### L 501.2300, L500.2500, L500.4100, L100.0100, L501.5200 ####[facility] [address] [place], [address] Platelet mean volume (Bld) [Entitic vol] 9.9 fL Normal 6.2-12.0 [facility] Comment on above: Performed By: #### L 501.2300, L500.2500, L500.4100, L100.0100, L501.5200 ####[facility] [address] [place], [address] Platelets (Bld) [#/Vol] 155 10*3/uL Normal 150-450 [facility] Comment on above: Performed By: #### L 501.2300, L500.2500, L500.4100, L100.0100, L501.5200 ####[facility] [address] [place], [address] RBC (Bld) [#/Vol] 3.80 10*6/uL Low 4.2-5.4 [facility] Comment on above: Performed By: #### L 501.2300, L500.2500, L500.4100, L100.0100, L501.5200 ####[facility] [address] [place], [address] RDW SD 52.4 fl High 35.1-43.9 [facility] Comment on above: Performed By: #### L 501.2300, L500.2500, L500.4100, L100.0100, L501.5200 ####[facility] [address] [place], [address] WBC (Bld) [#/Vol] 3.8 10*3/uL Low 4.4-11.0 [facility] Comment on above: Performed By: #### L 501.2300, L500.2500, L500.4100, L100.0100, L501.5200 ####[facility] [address] [place], [address] Calculated very low density lipoprotein (VLDL) cholesterol measurementOrdered By: Beck Lee on 08-11-2024 Calculated very low density lipoprotein (VLDL) cholesterol measurement 36 mg/dL 5-40 [facility] Calculated very low density lipoprotein (VLDL) cholesterol measurement 36 mg/dL -40 [facility] Cholesterol [Mass/Vol]Ordere d By: Beck Lee on 08-11-2024 Serum or plasma cholesterol measurement (mass/volume) 151 mg/dL <201 [facility] Cholesterol in HDL [Mass/Vol ]Ordered By: Beck Lee on 08-11-2024 Serum or plasma cholesterol in HDL measurement (mass/volume) 69 mg/dL >40 [facility] LDL calc ser/plasOrdered By: Beck Lee on 08-11-2024 Cholesterol in LDL [Mass/Vol] 46 mg/dL [facility] LDL calc ser/plas 46 mg/dL [facility] Lipid Profileon 08-11-2024 CHOL:HDL 2.[address] [facility] Comment on above: Performed By: #### L 501.2300, L500.2500, L500.4100, L100.0100, L501.5200 ####[facility] [address] [place], [place], [phone] Cholesterol [Mass/Vol] 151 mg/dL Normal <=200 [facility] Comment on above: Result Comment: Chol esterol level, Desirable <200 mg/dLBorderline high cholesterol 200-239 mg/dLHigh cholesterol >=240 mg/dLRecommendations of the NCEP Adult Treatment Panel for thefollowing risk-cutoff thresholds for the [place] Americanpulation. Performed By: #### L 501.2300, L500.2500, L500.4100, L100.0100, L501.5200 ####[facility] [address] [place], [place], [phone] Cholesterol in HDL [Mass/Vol] 69 mg/dL Normal [facility] Comment on above: Result Comment: Sofy onal Cholesterol Education Program (NCEP) guidelines:<40 mg/dL: Low HDL-cholesterol (major risk factor for CHD)>= 60 mg/dL: High HDL-cholesterol (negative risk factor forCHD)HDL-cholesterol is affected by a number of factors, e.g.smoking, exercise, hormones, sex and age. Performed By: #### L 501.2300, L500.2500, L500.4100, L100.0100, L501.5200 ####[facility] [address] [place], [address] Cholesterol in LDL [Mass/Vol] 46 mg/dL Normal [facility] Comment on above: Result Comment: Bord doberk=086-097 mg/dL Higher Lqnj=960 mg/dL or greater Performed By: #### L 501.2300, L500.2500, L500.4100, L100.0100, L501.5200 ####[facility] [address] [place], [address] Cholesterol in VLDL [Mass/Vol] 36 mg/dL Normal 5-40 [facility] Comment on above: Performed By: #### L 501.2300, L500.2500, L500.4100, L100.0100, L501.5200 ####[facility] [address] [place], [address] Triglyceride [Mass/Vol] 179 mg/dL Normal [facility] Comment on above: Result Comment: The drugs N-Acetylcysteine and Metamizole may falselydepress this assay.Normal range: <150 mg/dLBorderline High: 150-199 mg/dLHigh: 200-499 mg/dLVery High: >500 mg/dL Performed By: #### L 501.2300, L500.2500, L500.4100, L100.0100, L501.5200 ####[facility] [address] [place], [address] MR/CON.PCM.NEon 08-11-2024 MR/CON.PCM.NE Normal [facility] Magnesiumon 08-11-2024 Magnesium [Mass/Vol] 2.2 mg/dL Normal 1.5-2.2 [facility] Comment on above: Performed By: #### L 501.2300, L500.2500, L500.4100, L100.0100, L501.5200 ####[facility] [address] [place], [address] Magnesium (Unsp spec) [Mass/ Vol]Ordered By: Beck Lee on 08-11-2024 Magnesium measurement (mass/volume) 2.2 mg/dL 1.5-2.2 [facility] Magnesium measurement (mass/ volume)Ordered By: Beck Lee on 08-11-2024 Magnesium (Unsp spec) [Mass/Vol] 2.2 mg/dL 1.5-2.2 [facility] Phosphoruson 08-11-2024 Phosphate [Mass/Vol] 2.6 mg/dL Low 2.7-4.5 [facility] Comment on above: Performed By: #### L 501.2300, L500.2500, L500.4100, L100.0100, L501.5200 ####[facility] [address] [place], [address] Screening total cholesterol/ high density lipoprotein (HDL) cholesterol ratioOrdered By: Beck Lee on 08-11-2024 Screening total cholesterol/high density lipoprotein (HDL) cholesterol ratio 2.19 [facility] Serum or plasma cholesterol in HDL measurement (mass/volume)Ordered By: Beck Lee on 08-11-2024 Cholesterol in HDL [Mass/Vol] 69 mg/dL >40 [facility] Serum or plasma cholesterol measurement (mass/volume)Ordered By: Beck Lee on 08-11-2024 Cholesterol [Mass/Vol] 151 mg/dL <201 [facility] Serum phosphorus measurement Ordered By: Beck Lee on 08-11-2024 Serum phosphorus measurement 2.6 mg/dL Low 2.7-4.5 [facility] Triglycerides measurementOrd ered By: Beck Lee on 08-11-2024 Triglycerides measurement 179 mg/dL <199 [facility] ALP [Catalytic activity/Vol] Ordered By: Mckenzie Austin on 08-10-2024 Serum or plasma alkaline phosphatase measurement 83 U/L 35-104 [facility] ALT [Catalytic activity/Vol] Ordered By: Mckenzie Austin on 08-10-2024 Serum or plasma alanine aminotransferase (ALT) measurement 12 U/L <35 [facility] Albumin [Mass/Vol]Ordered By : Mckenzie Austin on 08-10-2024 Serum or plasma albumin measurement (mass/volume) 3.8 g/dL 3.4-4.8 [facility] Albumin/Globulin [Mass ratio ]Ordered By: Mckenzie Austin on 08-10-2024 Serum or plasma albumin/globulin mass ratio 2.9 RATIO High 0.9-2.4 [facility] Bedside Glucoseon 08-10-2024 FINGERSTICK GLU 264 mg/dL High 74-106 [facility] Comment on above: Result Comment: HAM GEMENT OF PATIENT CARE PER NURSING PROTOCOL Performed By: #### L 501.080 ####[facility] [address] [place], [address] FINGERSTICK GLU 286 mg/dL High 74-106 [facility] Comment on above: Result Comment: HAM GEMENT OF PATIENT CARE PER NURSING PROTOCOL Performed By: #### L 501.080 ####[facility] [address] [place], [address] FINGERSTICK GLU 241 mg/dL High 74-106 [facility] Comment on above: Result Comment: HAM GEMENT OF PATIENT CARE PER NURSING PROTOCOL Performed By: #### L 501.080 ####[facility] [address] [place], [address] FINGERSTICK GLU 104 mg/dL Normal -106 [facility] Comment on above: Result Comment: HAM GEMENT OF PATIENT CARE PER NURSING PROTOCOL Performed By: #### L 501.080 ####[facility] [address] [place], [address] FINGERSTICK GLU 109 mg/dL High 74-106 [facility] Comment on above: Result Comment: HAM GEMENT OF PATIENT CARE PER NURSING PROTOCOL Performed By: #### L 501.080 ####[facility] [address] [place], [address] Bilirubin, totalOrdered By: Mckenzie Austin on 08-10-2024 Bilirubin [Mass/Vol] 0.50 mg/dL 0.00-1.30 [facility] Bilirubin, total 0.50 mg/dL 0.00-1.30 [facility] CBC W/Diff, Automatedon 03-0 9-202 Absolute Lymph 1.48 X10 3/uL Normal 0.83-4.51 [facility] Comment on above: Performed By: #### L 500.4050, L100.0100 ####[facility] [address] [place], [address] Absolute Neut 2.1 X10 3/uL Normal 2.0-7.7 [facility] Comment on above: Performed By: #### L 500.4050, L100.0100 ####[facility] [address] [place], [address] Basophils/100 WBC (Bld) 0.5 % Normal 0-1 [facility] Comment on above: Performed By: #### L 500.4050, L100.0100 ####[facility] [address] [place], [address] Eosinophils/100 WBC (Bld) 2.0 % Normal 0-5 [facility] Comment on above: Performed By: #### L 500.4050, L100.0100 ####[facility] [address] [place], [address] Erythrocyte distribution width (RBC) [Ratio] 14.6 % Normal 11.6-14.6 [facility] Comment on above: Performed By: #### L 500.4050, L100.0100 ####[facility] [address] [place], [address] Hematocrit (Bld) [Volume fraction] 30.9 % Low 37-47 [facility] Comment on above: Performed By: #### L 500.4050, L100.0100 ####[facility] [address] [place], [address] Hemoglobin (Bld) [Mass/Vol] 9.1 g/dL Low 12.0-15.0 [facility] Comment on above: Performed By: #### L 500.4050, L100.0100 ####[facility] [address] [place], [address] IG% 0.200 Normal 0.0-0.9 [facility] Comment on above: Result Comment: IG% - Immature Granulocytes (promyelocytes, myelocytes andmetamyelocytes) > 1% indicates that a LEFT SHIFT is Present. Performed By: #### L 500.4050, L100.0100 ####[facility] [address] [place], [address] Lymphocytes/100 WBC (Bld) 36.5 % Normal 19-41 [facility] Comment on above: Performed By: #### L 500.4050, L100.0100 ####[facility] [address] [place], [address] MCH (RBC) [Entitic mass] 27.5 pg Normal 27.0-32.0 [facility] Comment on above: Performed By: #### L 500.4050, L100.0100 ####[facility] [address] [place], [address] MCHC (RBC) [Mass/Vol] 29.4 g/dL Low 32-36 [facility] Comment on above: Performed By: #### L 500.4050, L100.0100 ####[facility] [address] [place], [address] MCV (RBC) [Entitic vol] 93.4 fL Normal 81-99 [facility] Comment on above: Performed By: #### L 500.4050, L100.0100 ####[facility] [address] [place], [address] Monocytes/100 WBC (Bld) 10.1 % High 0-10 [facility] Comment on above: Performed By: #### L 500.4050, L100.0100 ####[facility] [address] [place], [address] Neutrophils/100 WBC (Bld) 50.7 % Normal 47-70 [facility] Comment on above: Performed By: #### L 500.4050, L100.0100 ####[facility] [address] [place], [address] Nucleated RBC (Bld) [#/Vol] 0 10*3/uL Normal 0-5 [facility] Comment on above: Performed By: #### L 500.4050, L100.0100 ####[facility] [address] [place], [address] Platelet mean volume (Bld) [Entitic vol] 10.0 fL Normal 6.2-12.0 [facility] Comment on above: Performed By: #### L 500.4050, L100.0100 ####[facility] [address] [place], [address] Platelets (Bld) [#/Vol] 141 10*3/uL Low 150-450 [facility] Comment on above: Performed By: #### L 500.4050, L100.0100 ####[facility] [address] [place], [address] RBC (Bld) [#/Vol] 3.31 10*6/uL Low 4.2-5.4 [facility] Comment on above: Performed By: #### L 500.4050, L100.0100 ####[facility] [address] [place], [address] RDW SD 49.8 fl High 35.1-43.9 [facility] Comment on above: Performed By: #### L 500.4050, L100.0100 ####[facility] [address] [place], [address] WBC (Bld) [#/Vol] 4.1 10*3/uL Low 4.4-11.0 [facility] Comment on above: Performed By: #### L 500.4050, L100.0100 ####[facility] [address] [place], [address] Comprehensive Metabolic Prof ilon 08-10-2024 Albumin [Mass/Vol] 3.8 g/dL Normal 3.4-4.8 [facility] Comment on above: Performed By: #### L 500.4050, L100.0100 ####[facility] [address] [place], [address] Albumin/Globulin [Mass ratio] 2.9 {ratio} High 0.9-2.4 [facility] Comment on above: Performed By: #### L 500.4050, L100.0100 ####[facility] [address] [place], [address] ALK PHOS 83 U/L Normal 35-104 [facility] Comment on above: Performed By: #### L 500.4050, L100.0100 ####[facility] [address] [place], [address] ALT [Catalytic activity/Vol] 12 U/L Normal <=34 [facility] Comment on above: Performed By: #### L 500.4050, L100.0100 ####[facility] [address] [place], [address] AST [Catalytic activity/Vol] 14 U/L Normal <=31 [facility] Comment on above: Performed By: #### L 500.4050, L100.0100 ####[facility] [address] [place], [address] Bilirubin [Mass/Vol] 0.50 mg/dL Normal 0.00-1.30 [facility] Comment on above: Performed By: #### L 500.4050, L100.0100 ####[facility] [address] [place], [address] BUN/CRE 13.4 RATIO Normal 10-20 [facility] Comment on above: Performed By: #### L 500.4050, L100.0100 ####[facility] [address] [place], [address] Calcium [Mass/Vol] 9.1 mg/dL Normal 7.6-11.0 [facility] Comment on above: Performed By: #### L 500.4050, L100.0100 ####[facility] [address] [place], [address] Chloride [Moles/Vol] 103 mmol/L Normal 98-108 [facility] Comment on above: Performed By: #### L 500.4050, L100.0100 ####[facility] [address] [place], [address] CO2 [Moles/Vol] 32.1 mmol/L High 21.0-32.0 [facility] Comment on above: Performed By: #### L 500.4050, L100.0100 ####[facility] [address] [place], [address] Creatinine [Mass/Vol] 0.85 mg/dL Normal 0.70-1.20 [facility] Comment on above: Performed By: #### L 500.4050, L100.0100 ####[facility] [address] [place], [address] ECRCL 93.10 ml/min Normal 50-250 [facility] Comment on above: Performed By: #### L 500.4050, L100.0100 ####[facility] [address] [place], [address] GAP 7 Normal 5-15 [facility] Comment on above: Performed By: #### L 500.4050, L100.0100 ####[facility] [address] [place], [address] GFR/1.73 sq M.predicted among non-blacks MDRD (S/P/Bld) [Vol rate/Area] 78 mL/min/{1.73_m2} Normal >60 [facility] Comment on above: Result Comment: mL/m in/1.73m2 CKD-EPI Creatinine Equation (2020) Performed By: #### L 500.4050, L100.0100 ####[facility] [address] [place], [address] Globulin (S) [Mass/Vol] 1.3 g/dL Low 2.2-4.2 [facility] Comment on above: Performed By: #### L 500.4050, L100.0100 ####[facility] [address] [place], [address] Glucose [Mass/Vol] 146 mg/dL High 70-99 [facility] Comment on above: Performed By: #### L 500.4050, L100.0100 ####[facility] [address] [place], [address] Potassium [Moles/Vol] 4.2 mmol/L Normal 3.3-5.1 [facility] Comment on above: Performed By: #### L 500.4050, L100.0100 ####[facility] [address] [place], [address] Sodium [Moles/Vol] 142 mmol/L Normal 133-145 [facility] Comment on above: Performed By: #### L 500.4050, L100.0100 ####[facility] [address] [place], [address] T PROT 5.1 g/dL Low 5.9-8.4 [facility] Comment on above: Performed By: #### L 500.4050, L100.0100 ####[facility] [address] [place], [address] Urea nitrogen [Mass/Vol] 11 mg/dL Normal 4-19 [facility] Comment on above: Performed By: #### L 500.4050, L100.0100 ####[facility] [address] [place], [address] Hemoglobin A1con 08-10-2024 HbA1c (Bld) [Mass fraction] 8.9 % Normal <=5.6 [facility] Comment on above: Order Comment: Comme nts: add to ED labs Performed By: #### L 501.9985 ####[facility] [address] [place], [address] No Panel InformationOrdered By: Mckenzie Geovanna on 08-10-2024 14 U/L <32 [facility] RESPIRATORY PANEL MOLECULARo n 08-10-[address] [facility] Comment on above: Performed By: #### M 100.638 ####[facility] [address] [place], [address] Serum globulin measurementOr dered By: Mckenzie Austin on 08-10-2024 Globulin (S) [Mass/Vol] 1.3 g/dL Low 2.2-4.2 [facility] Serum globulin measurement 1.3 g/dL Low 2.2-4.2 [facility] Serum or plasma alanine guerrero otransferase (ALT) measurementOrdered By: Mckenzie Austin on 08-10-2024 ALT [Catalytic activity/Vol] 12 U/L <35 [facility] Serum or plasma albumin marisela urement (mass/volume)Ordered By: Mckenzie Austin on 08-10-2024 Albumin [Mass/Vol] 3.8 g/dL 3.4-4.8 [facility] Serum or plasma albumin/glob ulin mass ratioOrdered By: Mckenzie Austin on 08-10-2024 Albumin/Globulin [Mass ratio] 2.9 {ratio} High 0.9-2.4 [facility] Serum or plasma alkaline shaheen sphatase measurementOrdered By: Mckenzie Austin on 08-10-2024 ALP [Catalytic activity/Vol] 83 U/L 35-104 [facility] Total proteinOrdered By: Henrik washington Geovanna on 08-10-2024 Protein [Mass/Vol] 5.1 g/dL Low 5.9-8.4 [facility] Total protein 5.1 g/dL Low 5.9-8.4 [facility] Urine Cultureon 08-10-2024 URC Culture exhibits no growth. Normal [facility] Comment on above: Performed By: #### M 100.2200, L400.0001 ####[facility] [address] [place], [place], [id number] Absolute neutrophil countOrd ered By: Airam Rocha on 08-09-2024 Neutrophils (Bld) [#/Vol] 2.3 10*3/uL 2.0-7.7 [facility] Activated partial thrombopla stin time (aPTT) in platelet poor plasma by coagulation aOrdered By: Airam Rocha on 08-09-2024 aPTT Coag (PPP) [Time] 22.6 s Low 24.1-36.2 [facility] Anion gap in Serum or Plasma Ordered By: Airam Rocha on 08-09-2024 Anion gap [Moles/Vol] 7 mmol/L 5-15 [facility] BUN/creatinine ratioOrdered By: Airam Rocha on 08-09-2024 Urea nitrogen/Creatinine [Mass ratio] 13.3 mg/mg 10-20 [facility] Basophil percentageOrdered B y: Airam Rocha on 08-09-2024 Basophils/100 WBC (Bld) 0.3 % 0-1 [facility] Bedside Glucoseon 08-09-2024 FINGERSTICK GLU 376 mg/dL High 74-106 [facility] Comment on above: Result Comment: HAM PINEDA OF PATIENT CARE PER NURSING PROTOCOL Performed By: #### L 501.080 ####[facility] [address] [place], [place], [address] FINGERSTICK GLU 415 mg/dL High 74-106 [facility] Comment on above: Result Comment: HMA PINEDA OF PATIENT CARE PER NURSING PROTOCOL Performed By: #### L 501.080 ####[facility] [address] [place], [address] Bilirubin Test strip Ql (U)O rdered By: Airam Rocha on 08-09-2024 Bilirubin Ql (U) Negative Negative [facility] Bilirubin, totalOrdered By: Airam Rocha on 08-09-2024 Bilirubin [Mass/Vol] 0.67 mg/dL 0.00-1.30 [facility] Blood cultureOrdered By: Abbey Rocha on 08-09-2024 Bacteria identified Cx Nom (Bld) No growth in [address] [facility] Blood culture No growth in 5 days. [facility] Bacteria identified Cx Nom (Bld) No growth in [address] [facility] Blood culture No growth in 5 days. [facility] CBC W/Diff, Automatedon 03-0 Absolute Lymph 0.91 X10 3/uL Normal 0.83-4.51 [facility] Comment on above: Performed By: #### L 100.0100, L503.6005, L300.4310, M200.1000, L300.3900, L500.4050 ####[facility] [address] [place], [address] Absolute Neut 2.3 X10 3/uL Normal 2.0-7.7 [facility] Comment on above: Performed By: #### L 100.0100, L503.6005, L300.4310, M200.1000, L300.3900, L500.4050 ####[facility] [address] [place], [address] Basophils/100 WBC (Bld) 0.3 % Normal 0-1 [facility] Comment on above: Performed By: #### L 100.0100, L503.6005, L300.4310, M200.1000, L300.3900, L500.4050 ####[facility] [address] [place], [address] Eosinophils/100 WBC (Bld) 1.1 % Normal 0-5 [facility] Comment on above: Performed By: #### L 100.0100, L503.6005, L300.4310, M200.1000, L300.3900, L500.4050 ####[facility] [address] [place], [address] Erythrocyte distribution width (RBC) [Ratio] 14.9 % High 11.6-14.6 [facility] Comment on above: Performed By: #### L 100.0100, L503.6005, L300.4310, M200.1000, L300.3900, L500.4050 ####[facility] [address] [place], [address] Hematocrit (Bld) [Volume fraction] 30.3 % Low 37-47 [facility] Comment on above: Performed By: #### L 100.0100, L503.6005, L300.4310, M200.1000, L300.3900, L500.4050 ####[facility] [address] [place], [address] Hemoglobin (Bld) [Mass/Vol] 9.0 g/dL Low 12.0-15.0 [facility] Comment on above: Performed By: #### L 100.0100, L503.6005, L300.4310, M200.1000, L300.3900, L500.4050 ####[facility] [address] [place], [address] IG% 0.600 Normal 0.0-0.9 [facility] Comment on above: Result Comment: IG% - Immature Granulocytes (promyelocytes, myelocytes andmetamyelocytes) > 1% indicates that a LEFT SHIFT is Present. Performed By: #### L 100.0100, L503.6005, L300.4310, M200.1000, L300.3900, L500.4050 ####[facility] [address] [place], [address] Lymphocytes/100 WBC (Bld) 25.7 % Normal 19-41 [facility] Comment on above: Performed By: #### L 100.0100, L503.6005, L300.4310, M200.1000, L300.3900, L500.4050 ####[facility] [address] [place], [address] MCH (RBC) [Entitic mass] 27.3 pg Normal 27.0-32.0 [facility] Comment on above: Performed By: #### L 100.0100, L503.6005, L300.4310, M200.1000, L300.3900, L500.4050 ####[facility] [address] [place], [address] MCHC (RBC) [Mass/Vol] 29.7 g/dL Low 32-36 [facility] Comment on above: Performed By: #### L 100.0100, L503.6005, L300.4310, M200.1000, L300.3900, L500.4050 ####[facility] [address] [place], [address] MCV (RBC) [Entitic vol] 91.8 fL Normal 81-99 [facility] Comment on above: Performed By: #### L 100.0100, L503.6005, L300.4310, M200.1000, L300.3900, L500.4050 ####[facility] [address] [place], [address] Monocytes/100 WBC (Bld) 7.9 % Normal 0-10 [facility] Comment on above: Performed By: #### L 100.0100, L503.6005, L300.4310, M200.1000, L300.3900, L500.4050 ####[facility] [address] [place], [address] Neutrophils/100 WBC (Bld) 64.4 % Normal 47-70 [facility] Comment on above: Performed By: #### L 100.0100, L503.6005, L300.4310, M200.1000, L300.3900, L500.4050 ####[facility] [address] [place], [address] Nucleated RBC (Bld) [#/Vol] 0 10*3/uL Normal 0-5 [facility] Comment on above: Performed By: #### L 100.0100, L503.6005, L300.4310, M200.1000, L300.3900, L500.4050 ####[facility] [address] [place], [address] Platelet mean volume (Bld) [Entitic vol] 10.4 fL Normal 6.2-12.0 [facility] Comment on above: Performed By: #### L 100.0100, L503.6005, L300.4310, M200.1000, L300.3900, L500.4050 ####[facility] [address] [place], [address] Platelets (Bld) [#/Vol] 149 10*3/uL Low 150-450 [facility] Comment on above: Performed By: #### L 100.0100, L503.6005, L300.4310, M200.1000, L300.3900, L500.4050 ####[facility] [address] [place], [address] RBC (Bld) [#/Vol] 3.30 10*6/uL Low 4.2-5.4 [facility] Comment on above: Performed By: #### L 100.0100, L503.6005, L300.4310, M200.1000, L300.3900, L500.4050 ####[facility] [address] [place], [address] RDW SD 49.4 fl High 35.1-43.9 [facility] Comment on above: Performed By: #### L 100.0100, L503.6005, L300.4310, M200.1000, L300.3900, L500.4050 ####[facility] [address] [place], [address] WBC (Bld) [#/Vol] 3.5 10*3/uL Low 4.4-11.0 [facility] Comment on above: Performed By: #### L 100.0100, L503.6005, L300.4310, M200.1000, L300.3900, L500.4050 ####[facility] [address] [place], [address] Carbon dioxide, total [Moles /volume] in Central venous bloodOrdered By: Airam Rocha on 08-09-2024 CO2 [Moles/Vol] 33.7 mmol/L High 21.0-32.0 [facility] Chest PA and Lateralon 08-09 Chest PA and Lateral Normal [facility] Chloride assayOrdered By: Olivia Rocha on 08-09-2024 Chloride [Moles/Vol] 97 mmol/L Low 98-108 [facility] Clarity (U)Ordered By: Airam Rocha on 08-09-[address]24 [address] Clear Clear [facility] Color (U)Ordered By: Airam huber on 08-09-2024 Urine color determination Yellow Yellow [facility] Comprehensive Metabolic Prof ilon 08-09-2024 Albumin [Mass/Vol] 3.9 g/dL Normal 3.4-4.8 [facility] Comment on above: Performed By: #### L 100.0100, L503.6005, L300.4310, M200.1000, L300.3900, L500.4050 ####[facility] [address] [place], [address] Albumin/Globulin [Mass ratio] 2.1 {ratio} Normal 0.9-2.4 [facility] Comment on above: Performed By: #### L 100.0100, L503.6005, L300.4310, M200.1000, L300.3900, L500.4050 ####[facility] [address] [place], [address] ALK PHOS 88 U/L Normal 35-104 [facility] Comment on above: Performed By: #### L 100.0100, L503.6005, L300.4310, M200.1000, L300.3900, L500.4050 ####[facility] [address] [place], [address] ALT [Catalytic activity/Vol] 12 U/L Normal <=34 [facility] Comment on above: Performed By: #### L 100.0100, L503.6005, L300.4310, M200.1000, L300.3900, L500.4050 ####[facility] [address] [place], [address] AST [Catalytic activity/Vol] 10 U/L Normal <=31 [facility] Comment on above: Performed By: #### L 100.0100, L503.6005, L300.4310, M200.1000, L300.3900, L500.4050 ####[facility] [address] [place], [address] Bilirubin [Mass/Vol] 0.67 mg/dL Normal 0.00-1.30 [facility] Comment on above: Performed By: #### L 100.0100, L503.6005, L300.4310, M200.1000, L300.3900, L500.4050 ####[facility] [address] [place], [address] BUN/CRE 13.3 RATIO Normal 10-20 [facility] Comment on above: Performed By: #### L 100.0100, L503.6005, L300.4310, M200.1000, L300.3900, L500.4050 ####[facility] [address] [place], [address] Calcium [Mass/Vol] 9.5 mg/dL Normal 7.6-11.0 [facility] Comment on above: Performed By: #### L 100.0100, L503.6005, L300.4310, M200.1000, L300.3900, L500.4050 ####[facility] [address] [place], [address] Chloride [Moles/Vol] 97 mmol/L Low 98-108 [facility] Comment on above: Performed By: #### L 100.0100, L503.6005, L300.4310, M200.1000, L300.3900, L500.4050 ####[facility] [address] [place], [address] CO2 [Moles/Vol] 33.7 mmol/L High 21.0-32.0 [facility] Comment on above: Performed By: #### L 100.0100, L503.6005, L300.4310, M200.1000, L300.3900, L500.4050 ####[facility] [address] [place], [address] Creatinine [Mass/Vol] 0.91 mg/dL Normal 0.70-1.20 [facility] Comment on above: Performed By: #### L 100.0100, L503.6005, L300.4310, M200.1000, L300.3900, L500.4050 ####[facility] [address] [place], [address] ECRCL 82.86 ml/min Normal 50-250 [facility] Comment on above: Performed By: #### L 100.0100, L503.6005, L300.4310, M200.1000, L300.3900, L500.4050 ####[facility] [address] [place], [address] GAP 7 Normal 5-15 [facility] Comment on above: Performed By: #### L 100.0100, L503.6005, L300.4310, M200.1000, L300.3900, L500.4050 ####[facility] [address] [place], [address] GFR/1.73 sq M.predicted among non-blacks MDRD (S/P/Bld) [Vol rate/Area] 71 mL/min/{1.73_m2} Normal >60 [facility] Comment on above: Result Comment: mL/m in/1.73m2 CKD-EPI Creatinine Equation (2020) Performed By: #### L 100.0100, L503.6005, L300.4310, M200.1000, L300.3900, L500.4050 ####[facility] [address] [place], [address] Globulin (S) [Mass/Vol] 1.8 g/dL Low 2.2-4.2 [facility] Comment on above: Performed By: #### L 100.0100, L503.6005, L300.4310, M200.1000, L300.3900, L500.4050 ####[facility] [address] [place], [address] Glucose [Mass/Vol] 560 mg/dL Invalid Interpretation Code 70-99 [facility] Comment on above: Result Comment: Crit ical Result(s) Called ACOLE at: 1953 by:HONORIO??Results read back by same. Performed By: #### L 100.0100, L503.6005, L300.4310, M200.1000, L300.3900, L500.4050 ####[facility] [address] [place], [address] Potassium [Moles/Vol] 4.3 mmol/L Normal 3.3-5.1 [facility] Comment on above: Performed By: #### L 100.0100, L503.6005, L300.4310, M200.1000, L300.3900, L500.4050 ####[facility] [address] [place], [address] Sodium [Moles/Vol] 138 mmol/L Normal 133-145 [facility] Comment on above: Performed By: #### L 100.0100, L503.6005, L300.4310, M200.1000, L300.3900, L500.4050 ####[facility] [address] [place], [address] T PROT 5.7 g/dL Low 5.9-8.4 [facility] Comment on above: Performed By: #### L 100.0100, L503.6005, L300.4310, M200.1000, L300.3900, L500.4050 ####[facility] [address] [place], [address] Urea nitrogen [Mass/Vol] 12 mg/dL Normal 4-19 [facility] Comment on above: Performed By: #### L 100.0100, L503.6005, L300.4310, M200.1000, L300.3900, L500.4050 ####[facility] [address] [place], [address] Emergency Department Summary on 08-09-2024 [address] Normal [facility] Eosinophil percentageOrdered By: Airam Rocha on 08-09-2024 Eosinophils/100 WBC (Bld) 1.1 % 0-5 [facility] Epithelial cells.squamous LM Ql (Urine sed)Ordered By: Airam Rocha on 08-09-2024 Epithelial cells.squamous LM.HPF (Urine sed) [#/Area] 0 /[HPF] 5-10 [facility] Erythrocyte distribution wid th ratioOrdered By: Airam Rocha on 08-09-2024 Erythrocyte distribution width (RBC) [Ratio] 14.9 % High 11.6-14.6 [facility] Erythrocyte distribution wid th standard deviationOrdered By: Airam Rocha on 08-09-2024 Erythrocyte distribution width (RBC) [Entitic vol] 49.4 fL High 35.1-43.9 [facility] Estimation of creatinine delvis aranceOrdered By: Airam Rocha on 08-09-2024 Estimated Creatinine Clearance Calc 82.86 ml/min 50-250 [facility] GFR/1.73 sq M.predicted madeline g non-blacks MDRD (S/P/Bld) [Vol rate/Area]Ordered By: Airam Rocha on 08-09-2024 Estimated GFR (MDRD) Non-Af Amer 71 >60 [facility] Comment on above: mL/min/1.73m2 CKD-EP I Creatinine Equation (2020) Glucose Ql (U)Ordered By: Olivia Rocha on 08-09-2024 Glucose (U) [Mass/Vol] 1000 mg/dL High Normal [facility] Urine glucose detection 1000 mg/dl High Normal [facility] Glucose measurement at bedsi deOrdered By: Mckenzie Austin on 08-09-2024 Bedside Glucose (Misc Panel) 415 mg/dL High 74-106 [facility] Comment on above: MANAGEMENT OF PATIEN T CARE PER NURSING PROTOCOL H AND P Exam - Hospitaliston 08-09-2024 H&P Exam - Hospitalist Normal [facility] HbA1c (Bld) [Mass fraction]O rdered By: Mckenzie Austin on 08-09-2024 Hemoglobin A1c percentage 8.9 % >5.7 [facility] Hematocrit Auto (Bld) [Volum e fraction]Ordered By: Airam Rocha on 08-09-2024 Hematocrit (Bld) [Volume fraction] 30.3 % Low 37-47 [facility] Hemoglobin A1c percentageOrd ered By: Mckenzie Austin on 08-09-2024 HbA1c (Bld) [Mass fraction] 8.9 % >5.7 [facility] Hemoglobin measurementOrdere d By: Airam Rocha on 08-09-2024 Hemoglobin (Bld) [Mass/Vol] 9.0 g/dL Low 12.0-15.0 [facility] Immature granulocytes/100 WB C Auto (Bld)Ordered By: Airam Rocha on 08-09-2024 Immature granulocytes/100 WBC (Bld) 0.600 % 0.0-0.9 [facility] Comment on above: IG% - Immature Granu locytes (promyelocytes, myelocytes and metamyelocytes) > 1% indicates that a LEFT SHIFT is Present. International normalized rat io (INR) calculationOrdered By: Airam Rocha on 08-09-2024 INR Coag (Bld) [Relative time] 0.9 {INR} [facility] International normalized ratio (INR) calculation 0.9 [facility] Ketones Test strip Ql (U)Ord ered By: Airam Rocha on 08-09-2024 Ketones Ql (U) Negative Negative [facility] L509.7001on 08-09-2024 Procalcitonin 0.09 ng/mL Normal <=0.10 [facility] Comment on above: Order Comment: Comme [...] the patient. Performed By: #### L 509.7001 ####[facility] [address] [place], [address] Laboratory - Chemistry and C hemistry - challengeOrdered By: Airam Rocha on 08-09-2024 AST [Catalytic activity/Vol] 10 U/L <32 [facility] Lactic Acidon 08-09-2024 Lactate [Moles/Vol] 1.2 mmol/L Normal 0.0-2.0 [facility] Comment on above: Order Comment: Y Performed By: #### L 100.0100, L503.6005, L300.4310, M200.1000, L300.3900, L500.4050 ####[facility] [address] [place], [address] Lactic acid measurementOrder ed By: Airam Rocha on 08-09-2024 Lactate [Moles/Vol] 1.2 mmol/L 0.0-2.0 [facility] Lactic acid measurement 1.2 mmol/L 0.0-2.0 [facility] Lymphocytes Auto (Unsp spec) [#/Vol]Ordered By: Airam Rocha on 08-09-2024 Lymphocytes (Bld) [#/Vol] 0.91 10*3/uL 0.83-4.51 [facility] Lymphocytes/100 WBC Auto (Un sp spec)Ordered By: Airam Rocha on 08-09-2024 Lymphocytes/100 WBC (Bld) 25.7 % 19-41 [facility] MCV (mean corpuscular volume ) determinationOrdered By: Airam Rocha on 08-09-2024 MCV (RBC) [Entitic vol] 91.8 fL 81-99 [facility] Mean corpuscular hemoglobin (MCH) determinationOrdered By: Airam Rocha on 08-09-2024 MCH (RBC) [Entitic mass] 27.3 pg 27.0-32.0 [facility] Mean corpuscular hemoglobin concentration (MCHC) determinationOrdered By: Airam Rocha on 08-09-2024 MCHC (RBC) [Mass/Vol] 29.7 g/dL Low 32-36 [facility] Mean platelet volume determi nationOrdered By: Airam Rocha on 08-09-2024 Platelet mean volume (Bld) [Entitic vol] 10.4 fL 6.2-12.0 [facility] Microscopic analysis of urin e for red blood cells (RBC)Ordered By: Airam Rocha on 08-09-2024 Urine RBC 0 SEEN /hpf 0-5 [facility] Monocyte percentageOrdered B y: Airam Rocha on 08-09-2024 Monocytes/100 WBC (Bld) 7.9 % 0-10 [facility] Mucus LM Ql (Urine sed)Order ed By: Airam Rocha on 08-09-2024 Mucus Ql (Urine sed) 0 SEEN /hpf [facility] Neutrophil percentageOrdered By: Airam Rocha on 08-09-2024 Neutrophils/100 WBC (Bld) 64.4 % 47-70 [facility] Nitrite Test strip Ql (U)Ord ered By: Airam Rocha on 08-09-2024 Nitrite Ql (U) Negative Negative [facility] No Panel InformationOrdered By: Mckenzie Austin on 08-09-2024 0.09 ng/mL <0.11 [facility] Nucleated red blood cell per centageOrdered By: Airam Rocha on 08-09-2024 Nucleated RBC/100 WBC (Bld) [Ratio] 0 % 0-5 [facility] Partial Thromboplast Timeon 08-09-2024 aPTT Coag (Bld) [Time] 22.6 s Low 24.1-36.2 [facility] Comment on above: Performed By: #### L 100.0100, L503.6005, L300.4310, M200.1000, L300.3900, L500.4050 ####[facility] [address] [place], [place], [id number] Platelet countOrdered By: Olivia Rocha on 08-09-2024 Platelets (Bld) [#/Vol] 149 10*3/uL Low 150-450 [facility] Potassium (Unsp spec) [Mass/ Vol]Ordered By: Airam Rocha on 08-09-2024 Potassium [Moles/Vol] 4.3 mmol/L 3.3-5.1 [facility] Protein Test strip Ql (U)Ord ered By: Airam Rocha on 08-09-2024 Protein Ql (U) 30 mg/dl High Negative [facility] Urine protein assay by test strip, semi-quantitative 30 mg/dl High Negative [facility] Prothrombin Time w/INRon INR Coag (PPP) [Relative time] 0.9 {INR} Normal [facility] Comment on above: Performed By: #### L 100.0100, L503.6005, L300.4310, M200.1000, L300.3900, L500.4050 ####[facility] [address] [place], [place], [id number] PT Coag (PPP) [Time] 12.3 s Normal 11.7-14.9 [facility] Comment on above: Performed By: #### L 100.0100, L503.6005, L300.4310, M200.1000, L300.3900, L500.4050 ####[facility] [address] [place], [place], [id number] Prothrombin timeOrdered By: Airam Rocha on 08-09-2024 PT Coag (PPP) [Time] 12.3 s 11.7-14.9 [facility] Prothrombin time 12.3 SECONDS 11.7-14.9 [facility] RBC Auto (Bld) [#/Vol]Ordere d By: Airam Rocha on 08-09-2024 RBC (Bld) [#/Vol] 3.30 10*6/uL Low 4.2-5.4 [facility] Respiratory pathogens detect ion panel by molecular detection methodOrdered By: Mckenzie Austin on 08-09-2024 Respiratory pathogens DNA and RNA panel MARY+probe (Resp) [facility] Serum creatinine measurement (mass/volume)Ordered By: Airam Rocha on 08-09-2024 Creatinine [Mass/Vol] 0.91 mg/dL 0.70-1.20 [facility] Serum globulin measurementOr dered By: Airam Rocha on 08-09-2024 Globulin (S) [Mass/Vol] 1.8 g/dL Low 2.2-4.2 [facility] Serum glucose measurement (m ass/volume)Ordered By: Airam Rocha on 08-09-2024 Glucose [Mass/Vol] 560 mg/dL High 70-99 [facility] Comment on above: Critical Result(s) C ana [place] at: 1953 by: HONORIO Results read back by same. Serum or plasma alanine guerrero otransferase (ALT) measurementOrdered By: Airam Rocha on 08-09-2024 ALT [Catalytic activity/Vol] 12 U/L <35 [facility] Serum or plasma albumin marisela urement (mass/volume)Ordered By: Airam Rocha on 08-09-2024 Albumin [Mass/Vol] 3.9 g/dL 3.4-4.8 [facility] Serum or plasma albumin/glob ulin mass ratioOrdered By: Airam Rocha on 08-09-2024 Albumin/Globulin [Mass ratio] 2.1 {ratio} 0.9-2.4 [facility] Serum or plasma alkaline shaheen sphatase measurementOrdered By: Airam Rocha on 08-09-2024 ALP [Catalytic activity/Vol] 88 U/L 35-104 [facility] Serum or plasma calcium marisela urement (mass/volume)Ordered By: Airam Rocha on 08-09-2024 Calcium [Mass/Vol] 9.5 mg/dL 7.6-11.0 [facility] Serum or plasma urea nitroge n measurement (mass/volume)Ordered By: Airam Rocha on 08-09-2024 Urea nitrogen [Mass/Vol] 12 mg/dL 4-19 [facility] Sodium levelOrdered By: Airam Rocah on 08-09-2024 Sodium [Moles/Vol] 138 mmol/L 133-145 [facility] Specific gravity (U) [Rel de nsity]Ordered By: Airam Rocha on 08-09-2024 Urine specific gravity measurement 1.010 1.002-1.030 [facility] Squamous epithelial cells de tection in urine sediment by light microscopyOrdered By: Airam Rocha on 08-09-2024 Epithelial cells.squamous LM Ql (Urine sed) 0 SEEN /hpf 5-10 [facility] Total proteinOrdered By: Abbey Rocha on 08-09-2024 Protein [Mass/Vol] 5.7 g/dL Low 5.9-8.4 [facility] Urinalysis, Completeon 08-09 RBC 0 SEEN Normal 0-5 [facility] Comment on above: Order Comment: KASSIDY TER SPECIMEN Performed By: #### M 100.2200, L400.0001 ####[facility] [address] [place], [address] BACTERIA 0 SEEN Normal None Seen [facility] Comment on above: Order Comment: KASSIDY TER SPECIMEN Performed By: #### M 100.2200, L400.0001 ####[facility] [address] [place], [address] EPI,SQUAMOUS 0 SEEN Normal 5-10 [facility] Comment on above: Order Comment: KASSIDY TER SPECIMEN Performed By: #### M 100.2200, L400.0001 ####[facility] [address] [place], [address] Mucus Ql (Urine sed) 0 SEEN Normal [facility] Comment on above: Order Comment: KASSIDY TER SPECIMEN Performed By: #### M 100.2200, L400.0001 ####[facility] [address] [place], [address] WBC 0 SEEN Normal 0-5 [facility] Comment on above: Order Comment: KASSIDY TER SPECIMEN Performed By: #### M 100.2200, L400.0001 ####[facility] [address] [place], [address] Urine blood detectionOrdered By: Airam Rocha on 08-09-2024 Urine Occult Blood 10 /ul High Negative [facility] Urine blood detection 10 /ul High Negative [facility] Urine clarityOrdered By: Abbey Rocha on 08-09-2024 Clarity (U) Clear Clear [facility] Urine color determinationOrd ered By: Airam Rocha on 08-09-2024 Color (U) Yellow Yellow [facility] Urine cultureOrdered By: Abbey Rocha on 08-09-2024 Bacteria identified Cx Nom (U) Culture exhibits no growth. [facility] Urine culture Culture exhibits no growth. [facility] Urine glucose detectionOrder ed By: Airam Rocha on 08-09-2024 Glucose Ql (U) 1000 mg/dl High Normal [facility] Urine leukocyte esterase det ection by dipstickOrdered By: Airam Rocha on 08-09-2024 Leukocyte esterase Test strip Ql (U) Negative Negative [facility] Urine pHOrdered By: Airam guallpa on 08-09-2024 pH (U) 7.0 [pH] 5.0 - 8.0 [facility] Urine sediment bacteria coun t by microscopy (number/high power field)Ordered By: Airam Rocha on 08-09-2024 Bacteria LM.HPF (Urine sed) [#/Area] 0 /[HPF] None Seen [facility] Urine specific gravity measu rementOrdered By: Airam Rocha on 08-09-2024 Specific gravity (U) [Rel density] 1.010 1.002-1.030 [facility] Urine total bilirubin detect ion by test stripOrdered By: Airam Rocha on 08-09-2024 Urine total bilirubin detection by test strip Negative Negative [facility] Urine urobilinogen measureme ntOrdered By: Airam Rocha on 08-09-2024 Urobilinogen Ql (U) Normal mg/dl Normal [facility] Urobilinogen Ql (U)Ordered B y: Airam Rocha on 08-09-2024 Urine Urobilinogen Normal mg/dl Normal [facility] Urine urobilinogen measurement Normal mg/dl Normal [facility] White blood cell (WBC) count Ordered By: Airam Rocha on 08-09-2024 WBC (Bld) [#/Vol] 3.5 10*3/uL Low 4.4-11.0 [facility] White blood cell countOrdere d By: Airam Rocha on 08-09-2024 Urine WBC 0 SEEN /hpf 0-5 [facility] White blood cell count 0 SEEN /hpf 0-5 [facility] White blood cell count 0 SEEN /hpf [facility] aPTT Coag (PPP) [Time]Ordere d By: Airam Rocha on 08-09-2024 aPTT Coag (Bld) [Time] 22.6 s Low 24.1-36.2 [facility] Activated partial thromboplastin time (aPTT) in platelet poor plasma by coagulation a 22.6 Seconds Low 24.1-36.2 [facility] pH (U)Ordered By: Airam griffiths on 08-09-2024 Urine pH 7.0 5.0 - 8.0 [facility] CBC-Complete Blood Cnt No Di ffon 07-24-2024 Erythrocyte distribution width (RBC) [Ratio] 14.1 % Normal 11.6-14.6 [facility] Comment on above: Order Comment: BLOOD SMEAR FOR PATHOLOGY Performed By: #### L 100.0500 ####[facility] [address] [place], [address] Hematocrit (Bld) [Volume fraction] 34.9 % Low 37-47 [facility] Comment on above: Order Comment: BLOOD SMEAR FOR PATHOLOGY Performed By: #### L 100.0500 ####[facility] [address] [place], [address] Hemoglobin (Bld) [Mass/Vol] 10.0 g/dL Low 12.0-15.0 [facility] Comment on above: Order Comment: BLOOD SMEAR FOR PATHOLOGY Performed By: #### L 100.0500 ####[facility] [address] [place], [address] MCH (RBC) [Entitic mass] 27.7 pg Normal 27.0-32.0 [facility] Comment on above: Order Comment: BLOOD SMEAR FOR PATHOLOGY Performed By: #### L 100.0500 ####[facility] [address] [place], [address] MCHC (RBC) [Mass/Vol] 28.7 g/dL Low 32-36 [facility] Comment on above: Order Comment: BLOOD SMEAR FOR PATHOLOGY Performed By: #### L 100.0500 ####[facility] [address] [place], [address] MCV (RBC) [Entitic vol] 96.7 fL Normal 81-99 [facility] Comment on above: Order Comment: BLOOD SMEAR FOR PATHOLOGY Performed By: #### L 100.0500 ####[facility] [address] [place], [address] Platelet mean volume (Bld) [Entitic vol] 10.0 fL Normal 6.2-12.0 [facility] Comment on above: Order Comment: BLOOD SMEAR FOR PATHOLOGY Performed By: #### L 100.0500 ####[facility] [address] [place], [address] Platelets (Bld) [#/Vol] 244 10*3/uL Normal 150-450 [facility] Comment on above: Order Comment: BLOOD SMEAR FOR PATHOLOGY Performed By: #### L 100.0500 ####[facility] [address] [place], [address] RBC (Bld) [#/Vol] 3.61 10*6/uL Low 4.2-5.4 [facility] Comment on above: Order Comment: BLOOD SMEAR FOR PATHOLOGY Performed By: #### L 100.0500 ####[facility] [address] [place], [address] RDW SD 49.5 fl High 35.1-43.9 [facility] Comment on above: Order Comment: BLOOD SMEAR FOR PATHOLOGY Performed By: #### L 100.0500 ####[facility] [address] [place], [address] WBC (Bld) [#/Vol] 9.1 10*3/uL Normal 4.4-11.0 [facility] Comment on above: Order Comment: BLOOD SMEAR FOR PATHOLOGY Performed By: #### L 100.0500 ####[facility] [address] [place], [address] Erythrocyte distribution wid th (RBC) [Entitic vol]Ordered By: [facility] [place] on 07-24-2024 Erythrocyte distribution width standard deviation 49.5 fl High 35.1-43.9 [facility] Erythrocyte distribution wid th (RBC) [Ratio]Ordered By: [facility] [place] on 07-24-2024 Erythrocyte distribution width ratio 14.1 % 11.6-14.6 [facility] Erythrocyte distribution wid th ratioOrdered By: [facility] [place] on 07-24-2024 Erythrocyte distribution width (RBC) [Ratio] 14.1 % 11.6-14.6 [facility] Erythrocyte distribution wid th standard deviationOrdered By: [facility] on 07-24-2024 Erythrocyte distribution width (RBC) [Entitic vol] 49.5 fL High 35.1-43.9 [facility] Erythrocyte distribution width (RBC) [Ratio] 49.5 fl High 35.1-43.9 [facility] Ferritinon 07-24-2024 Ferritin [Mass/Vol] 10 ng/mL Normal [facility] Comment on above: Order Comment: BLOOD SMEAR FOR PATHOLOGYOrder Date: 07/24/24Order Info: [id number] - IBCOrder Info: [id number] - TED Performed By: #### L 503.6030, L503.6550 ####[facility] [address] [place], [address] Ferritin measurementOrdered By: [facility] on 07-24-2024 Ferritin [Mass/Vol] 10 ng/mL [facility] Ferritin measurement 10 ng/mL [facility] Hematocrit Auto (Bld) [Volum e fraction]Ordered By: [facility] [place] on 07-24-2024 Hematocrit (Bld) [Volume fraction] 34.9 % Low 37-47 [facility] Automated blood hematocrit (percentage) 34.9 % Low 37-47 [facility] Hemoglobin measurementOrdere d By: [facility] [facility] Hemoglobin (Bld) [Mass/Vol] 10.0 g/dL Low 12.0-15.0 [facility] Hemoglobin measurement 10.0 g/dL Low 12.0-15.0 [facility] Iron (Unsp spec) [Mass/Mass] Ordered By: Corin Mariscal on 07-24-2024 Iron [Mass/Vol] 73 ug/dL 50-170 [facility] Iron measurement (mass/mass) 73 ug/dL 50-170 [facility] Iron measurement (mass/mass) Ordered By: Corin Mariscal on 07-24-2024 Iron (Unsp spec) [Mass/Mass] 73 ug/dL 50-170 [facility] Iron saturation [Mass fracti on]Ordered By: Corin Mariscal on 07-24-2024 Iron Saturation 17.8 % 15.0-55.0 [facility] Serum or plasma iron saturation measurement (mass fraction) 17.8 % 15.0-55.0 [facility] Iron+Iron Binding Capacityon 07-24-2024 Iron [Mass/Vol] 73 ug/dL Normal 50-170 [facility] Comment on above: Order Comment: BLOOD SMEAR FOR PATHOLOGYOrder Date: 07/24/24Order Info: [id number] - IBCOrder Info: [id number] - TED Performed By: #### L 503.6030, L503.6550 ####[facility] [address] [place], [address] IRON SATURATION 17.8 Normal 15.0-55.0 [facility] Comment on above: Order Comment: BLOOD SMEAR FOR PATHOLOGYOrder Date: 07/24/24Order Info: [id number] - IBCOrder Info: [id number] - TED Performed By: #### L 503.6030, L503.6550 ####[facility] [address] [place], [address] TIBC 411 ug/dL Normal 250-450 [facility] Comment on above: Order Comment: BLOOD SMEAR FOR PATHOLOGYOrder Date: 07/24/24Order Info: [id number] - IBCOrder Info: [id number] - TED Performed By: #### L 503.6030, L503.6550 ####[facility] [address] [place], [address] MCV (RBC) [Entitic vol]Order ed By: Corin Mariscal on 07-24-2024 MCV (mean corpuscular volume) determination 96.7 fL 81-99 [facility] MCV (mean corpuscular volume ) determinationOrdered By: Corin Mariscal on 07-24-2024 MCV (RBC) [Entitic vol] 96.7 fL 81-99 [facility] Mean corpuscular hemoglobin (MCH) determinationOrdered By: Corin Mariscal on 07-24-2024 MCH (RBC) [Entitic mass] 27.7 pg 27.0-32.0 [facility] Mean corpuscular hemoglobin (MCH) determination 27.7 pg 27.0-32.0 [facility] Mean corpuscular hemoglobin concentration (MCHC) determinationOrdered By: Corin Mariscal on 07-24-2024 MCHC (RBC) [Mass/Vol] 28.7 g/dL Low 32-36 [facility] Mean corpuscular hemoglobin concentration (MCHC) determination 28.7 g/dL Low 32-36 [facility] Mean platelet volume determi nationOrdered By: Corin Mariscal on 07-24-2024 Platelet mean volume (Bld) [Entitic vol] 10.0 fL 6.2-12.0 [facility] Mean platelet volume determination 10.0 fl 6.2-12.0 [facility] Platelet countOrdered By: Jami Mariscal on 07-24-2024 Platelets (Bld) [#/Vol] 244 10*3/uL 150-450 [facility] Platelet count 244 K/mm3 150-450 [facility] RBC Auto (Bld) [#/Vol]Ordere d By: Corin Mariscal on 07-24-2024 RBC (Bld) [#/Vol] 3.61 10*6/uL Low 4.2-5.4 [facility] Automated blood erythrocyte count 3.61 M/mm3 Low 4.2-5.4 [facility] Serum or plasma iron saturat ion measurement (mass fraction)Ordered By: Corin Mariscal on 07-24-2024 Iron saturation [Mass fraction] 17.8 % 15.0-55.0 [facility] TIBCOrdered By: Corin Mariscal on 07-24-2024 Total Iron Binding Capacity 411 ug/dL 250-450 [facility] TIBC 411 ug/dL 250-450 [facility] White blood cell (WBC) count Ordered By: Corin Mariscal on 07-24-2024 WBC (Bld) [#/Vol] 9.1 10*3/uL 4.4-11.0 [facility] White blood cell (WBC) count 9.1 K/mm3 4.4-11.0 [facility] Absolute lymphocyte countOrd ered By: Thong Sultana on 07-17-2024 Lymphocytes Auto (Unsp spec) [#/Vol] 0.31 10*3/uL Low 0.83-4.51 [facility] Absolute neutrophil countOrd ered By: Thong Sultana on 07-17-2024 Neutrophils (Bld) [#/Vol] 4.6 10*3/uL 2.0-7.7 [facility] Absolute neutrophil count 4.6 X10^3/uL 2.0-7.7 [facility] Automated blood erythrocyte countOrdered By: Thong Sultana on 07-17-2024 RBC (Bld) [#/Vol] 3.45 10*6/uL Low 4.2-5.4 [facility] Comment on above: Performed By: #### L 100.0100 ####[facility] [address] [place], [place], [address] Automated blood hematocrit ( percentage)Ordered By: Tohng Sultana on 07-17-2024 Hematocrit (Bld) [Volume fraction] 33.5 % Low 37-47 [facility] Comment on above: Performed By: #### L 100.0100 ####[facility] [address] [place], [place], [address] Automated lymphocyte count a s percentage of total leukocytesOrdered By: Thong Sultana on 07-17-2024 Lymphocytes/100 WBC (Bld) 6.1 % Low 19-41 [facility] Comment on above: Performed By: #### L 100.0100 ####[facility] [address] [place], [address] Lymphocytes/100 WBC Auto (Unsp spec) 6.1 % Low 19-41 [facility] Basic Metabolic Profile (BMP )on 07-17-2024 BUN/CRE 23.8 RATIO High 10-20 [facility] Comment on above: Performed By: #### L 501.5200, L500.2500, L501.2300 ####[facility] [address] [place], [address] CA,Total 9.6 mg/dL Normal 8.5-10.1 [facility] Comment on above: Performed By: #### L 501.5200, L500.2500, L501.2300 ####[facility] [address] [place], [address] ECRCL 96.71 ml/min Normal [facility] Comment on above: Performed By: #### L 501.5200, L500.2500, L501.2300 ####[facility] [address] [place], [address] EST GFR - AA 88 mL/min Normal >60 [facility] Comment on above: Result Comment: Afri can Swiss GFR Calc Performed By: #### L 501.5200, L500.2500, L501.2300 ####[facility] [address] [place], [address] GAP 3 Low 5-15 [facility] Comment on above: Performed By: #### L 501.5200, L500.2500, L501.2300 ####[facility] [address] [place], [address] Basophil percentageOrdered B y: Thong Sultana on 07-17-2024 Basophils/100 WBC (Bld) 0.0 % Normal 0-1 [facility] Comment on above: Performed By: #### L 100.0100 ####[facility] [address] [place], [address] Blood urea nitrogen (BUN)/cr eatinine ratioOrdered By: Thong Sultana on 07-17-2024 Urea nitrogen/Creatinine [Mass ratio] 23.8 mg/mg High 10-20 [facility] Blood urea nitrogen (BUN)/creatinine ratio 23.8 RATIO High 10-20 [facility] CBC W/Diff, Automatedon 07-05 Absolute Lymph 0.31 X10 3/uL Low 0.83-4.51 [facility] Comment on above: Performed By: #### L 100.0100 ####[facility] [address] [place], [address] Absolute Neut 4.6 X10 3/uL Normal 2.0-7.7 [facility] Comment on above: Performed By: #### L 100.0100 ####[facility] [address] [place], [address] IG% 0.800 Normal 0.0-0.9 [facility] Comment on above: Result Comment: IG% - Immature Granulocytes (promyelocytes, myelocytes andmetamyelocytes) > 1% indicates that a LEFT SHIFT is Present. Performed By: #### L 100.0100 ####[facility] [address] [place], [address] Nucleated RBC (Bld) [#/Vol] 0 10*3/uL Normal 0-5 [facility] Comment on above: Performed By: #### L 100.0100 ####[facility] [address] [place], [address] RDW SD 48.4 fl High 35.1-43.9 [facility] Comment on above: Performed By: #### L 100.0100 ####[facility] [address] [place], [address] Calcium [Mass/Vol]Ordered By : Thong Sultana on 07-17-2024 Serum or plasma calcium measurement (mass/volume) 9.6 mg/dL 8.5-10.1 [facility] Carbon dioxide measurementOr dered By: Thong Sultana on 07-17-2024 CO2 [Moles/Vol] 35.0 mmol/L High 21.0-32.0 [facility] Comment on above: Performed By: #### L 501.5200, L500.2500, L501.2300 ####[facility] [address] [place], [address] Carbon dioxide measurement 35.0 mmol/L High 21.0-32.0 [facility] Chloride measurementOrdered By: Thong Sultana on 07-17-2024 Chloride [Moles/Vol] 100 mmol/L Normal 98-107 [facility] Comment on above: Performed By: #### L 501.5200, L500.2500, L501.2300 ####[facility] [address] [place], [place], [address] Chloride measurement 100 mmol/L 98-107 [facility] Creatinine [Mass/Vol]Ordered By: Thong Sultana on 07-17-2024 Serum or plasma creatinine measurement (mass/volume) 0.84 mg/dL 0.55-1.02 [facility] Discharge Instructionon 02 Discharge Instruction Normal [facility] Eosinophil percentageOrdered By: Thong Sultana on 07-17-2024 Eosinophils/100 WBC (Bld) 0.0 % Normal 0-5 [facility] Comment on above: Performed By: #### L 100.0100 ####[facility] [address] [place], [place], [address] Eosinophil percentage 0.0 % 0-1 [facility] Erythrocyte distribution wid th (RBC) [Entitic vol]Ordered By: Thong Sultana on 07-17-2024 Erythrocyte distribution width standard deviation 48.4 fl High 35.1-43.9 [facility] Erythrocyte distribution wid th (RBC) [Ratio]Ordered By: Thong Sultana on 07-17-2024 Erythrocyte distribution width ratio 13.6 % 11.6-14.6 [facility] Erythrocyte distribution wid th ratioOrdered By: Thong Sultana on 07-17-2024 Erythrocyte distribution width (RBC) [Ratio] 13.6 % Normal 11.6-14.6 [facility] Comment on above: Performed By: #### L 100.0100 ####[facility] [address] [place], [place], [address] Erythrocyte distribution wid th standard deviationOrdered By: Thong Sultana on 07-17-2024 Erythrocyte distribution width (RBC) [Entitic vol] 48.4 fL High 35.1-43.9 [facility] Erythrocyte distribution width (RBC) [Ratio] 48.4 fl High 35.1-43.9 [facility] Estimated glomerular filtrat ion rate (GFR) AmericanOrdered By: Thong Sultana on 07-17-2024 Estimated GFR (MDRD) Amer 88 mL/min >60 [facility] Comment on above: GFR Calc Estimated glomerular filtration rate (GFR) 88 mL/min >60 [facility] Estimation of creatinine delvis aranceOrdered By: Thong Sultana on 07-17-2024 Estimated Creatinine Clearance Calc 96.71 ml/min [facility] Estimation of creatinine clearance 96.71 ml/min [facility] Glomerular filtration rate ( GFR) estimationOrdered By: Thong Sultana on 07-17-2024 GFR/1.73 sq M.predicted among non-blacks MDRD (S/P/Bld) [Vol rate/Area] 73 mL/min/{1.73_m2} Normal >60 [facility] Comment on above: Result Comment: Non- GFR Calc Performed By: #### L 501.5200, L500.2500, L501.2300 ####[facility] [address] [place], [place], [address] Estimated GFR (MDRD) Non-Af Amer 73 mL/min >60 [facility] Comment on above: Non- GFR Calc Glomerular filtration rate (GFR) estimation 73 mL/min >60 [facility] Glucose measurementOrdered B y: Thong Sultana on 07-17-2024 Glucose [Mass/Vol] 233 mg/dL High 74-106 [facility] Comment on above: Glucose result great er than or equal to 200 mg/dLsuggests DIABETES MELLITUS per A.D.A. criteria. Result Comment: Gluc ose result greater than or equal to 200 mg/dLsuggests DIABETES MELLITUS per A.D.A. criteria. Performed By: #### L 501.5200, L500.2500, L501.2300 ####[facility] [address] [place], [place], [address] Glucose measurement 233 mg/dL High 74-106 [facility] Hematocrit Auto (Bld) [Volum e fraction]Ordered By: Thong Sultana on 07-17-2024 Automated blood hematocrit (percentage) 33.5 % Low 37-47 [facility] Hemoglobin measurementOrdere d By: Thong Sultana on 07-17-2024 Hemoglobin (Bld) [Mass/Vol] 9.8 g/dL Low 12.0-15.0 [facility] Comment on above: Performed By: #### L 100.0100 ####[facility] [address] [place], [place], [id number] Hemoglobin measurement 9.8 g/dL Low 12.0-15.0 [facility] Immature granulocytes/100 WB C Auto (Bld)Ordered By: Thong Slutana on 07-17-2024 Immature granulocytes/100 WBC (Bld) 0.800 % 0.0-0.9 [facility] Comment on above: IG% - Immature Granu locytes (promyelocytes, myelocytes and metamyelocytes) > 1% indicates that a LEFT SHIFT is Present. Automated immature granulocyte percentage 0.800 % 0.0-0.9 [facility] Lymphocytes Auto (Unsp spec) [#/Vol]Ordered By: Thong Sultana on 07-17-2024 Lymphocytes (Bld) [#/Vol] 0.31 10*3/uL Low 0.83-4.51 [facility] Absolute lymphocyte count 0.31 X10^3/uL Low 0.83-4.51 [facility] Lymphocytes/100 WBC Auto (Un sp spec)Ordered By: Thong Sultana on 07-17-2024 Automated lymphocyte count as percentage of total leukocytes 6.1 % Low 19-41 [facility] MCV (RBC) [Entitic vol]Order ed By: Thong Sultana on 07-17-2024 MCV (mean corpuscular volume) determination 97.1 fL 81-99 [facility] MCV (mean corpuscular volume ) determinationOrdered By: Thong Sultana on 07-17-2024 MCV (RBC) [Entitic vol] 97.1 fL Normal 81-99 [facility] Comment on above: Performed By: #### L 100.0100 ####[facility] [address] [place], [address] Magnesium measurementOrdered By: Beck Tidwell on 07-17-2024 Magnesium [Mass/Vol] 2.5 mg/dL Normal 1.6-2.6 [facility] Comment on above: Performed By: #### L 501.5200, L500.2500, L501.2300 ####[facility] [address] [place], [address] Magnesium measurement 2.5 mg/dL 1.6-2.6 [facility] Mean corpuscular hemoglobin (MCH) determinationOrdered By: Thong Sultana on 07-17-2024 MCH (RBC) [Entitic mass] 28.4 pg Normal 27.0-32.0 [facility] Comment on above: Performed By: #### L 100.0100 ####[facility] [address] [place], [address] Mean corpuscular hemoglobin (MCH) determination 28.4 pg 27.0-32.0 [facility] Mean corpuscular hemoglobin concentration (MCHC) determinationOrdered By: Thong Sultana on 07-17-2024 MCHC (RBC) [Mass/Vol] 29.3 g/dL Low 32-36 [facility] Comment on above: Performed By: #### L 100.0100 ####[facility] [address] [place], [place], [address] Mean corpuscular hemoglobin concentration (MCHC) determination 29.3 g/dL Low 32-36 [facility] Mean platelet volume determi nationOrdered By: Thong Sulatna on 07-17-2024 Platelet mean volume (Bld) [Entitic vol] 9.9 fL Normal 6.2-12.0 [facility] Comment on above: Performed By: #### L 100.0100 ####[facility] [address] [place], [address] Mean platelet volume determination 9.9 fl 6.2-12.0 [facility] Monocyte percentageOrdered B y: Thong Sultana on 07-17-2024 Monocytes/100 WBC (Bld) 3.0 % Normal 0-10 [facility] Comment on above: Performed By: #### L 100.0100 ####[facility] [address] [place], [address] Monocyte percentage 3.0 % 0-10 [facility] Neutrophil percentageOrdered By: Thong Sultana on 07-17-2024 Neutrophils/100 WBC (Bld) 90.1 % High 47-70 [facility] Comment on above: Performed By: #### L 100.0100 ####[facility] [address] [place], [address] Neutrophil percentage 90.1 % High 47-70 [facility] Nucleated red blood cell per centageOrdered By: Thong Sultana on 07-17-2024 Nucleated RBC/100 WBC (Bld) [Ratio] 0 % 0-5 [facility] Nucleated red blood cell percentage 0 % 0-5 [facility] Phosphoruson 07-17-2024 Phosphate [Mass/Vol] 2.8 mg/dL Normal 2.5-4.9 [facility] Comment on above: Performed By: #### L 501.5200, L500.2500, L501.2300 ####[facility] [address] [place], [address] Phosphorus measurementOrdere d By: Beck Tidwell on 07-17-2024 Phosphorus Level 2.8 mg/dL 2.5-4.9 [facility] Phosphorus measurement 2.8 mg/dL 2.5-4.9 [facility] Platelet countOrdered By: Libby Sultana on 07-17-2024 Platelets (Bld) [#/Vol] 199 10*3/uL Normal 150-450 [facility] Comment on above: Performed By: #### L 100.0100 ####[facility] [address] [place], [address] Platelet count 199 K/mm3 150-450 [facility] Potassium measurementOrdered By: Thong Sultana on 07-17-2024 Potassium [Moles/Vol] 4.9 mmol/L Normal 3.5-5.1 [facility] Comment on above: Performed By: #### L 501.5200, L500.2500, L501.2300 ####[facility] [address] [place], [address] Potassium measurement 4.9 mmol/L 3.5-5.1 [facility] RBC Auto (Bld) [#/Vol]Ordere d By: Thong Sultana on 07-17-2024 Automated blood erythrocyte count 3.45 M/mm3 Low 4.2-5.4 [facility] Serum anion gap measurementO rdered By: Thong Sultana on 07-17-2024 Anion gap [Moles/Vol] 3 mmol/L Low 5-15 [facility] Serum anion gap measurement 3 Low 5-15 [facility] Serum or plasma calcium marisela urement (mass/volume)Ordered By: Thong Sultana on 07-17-2024 Calcium [Mass/Vol] 9.6 mg/dL 8.5-10.1 [facility] Serum or plasma creatinine m easurement (mass/volume)Ordered By: Thong Sultana on 07-17-2024 Creatinine [Mass/Vol] 0.84 mg/dL Normal 0.55-1.02 [facility] Comment on above: The validity of the calculated GFR & GFRAA in patients over 70 years has not been determined. Clinical correlation is essential. Result Comment: The validity of the calculated GFR GFRAA in patients over70 years has not been determined. Clinical correlation isessential. Performed By: #### L 501.5200, L500.2500, L501.2300 ####[facility] [address] [place], [address] Serum or plasma urea nitroge n measurement (mass/volume)Ordered By: Thong Sultana on 07-17-2024 Urea nitrogen [Mass/Vol] 20 mg/dL [address] Comment on above: Performed By: #### L 501.5200, L500.2500, L501.2300 ####[facility] [address] [place], [address] Sodium levelOrdered By: Luis Sultana on 07-17-2024 Sodium [Moles/Vol] 138 mmol/L Normal 136-145 [facility] Comment on above: Performed By: #### L 501.5200, L500.2500, L501.2300 ####[facility] [address] [place], [address] Sodium level 138 mmol/L 136-145 [facility] Urea nitrogen [Mass/Vol]Orde red By: Thong Sultana on 07-17-2024 Serum or plasma urea nitrogen measurement (mass/volume) 20 mg/dL [address] White blood cell (WBC) count Ordered By: Thong Sultana on 07-17-2024 WBC (Bld) [#/Vol] 5.1 10*3/uL Normal 4.4-11.0 [facility] Comment on above: Performed By: #### L 100.0100 ####[facility] [address] [place], [place], [address] White blood cell (WBC) count 5.1 K/mm3 4.4-11.0 [facility] ALP [Catalytic activity/Vol] Ordered By: Beck Tidwell on 07-16-2024 Serum or plasma alkaline phosphatase measurement 83 U/L 45-117 [facility] ALT [Catalytic activity/Vol] Ordered By: Beck Tidwell on 07-16-2024 Serum or plasma alanine aminotransferase (ALT) measurement 16 U/L 13-56 [facility] Albumin [Mass/Vol]Ordered By : Beck Tidwell on 07-16-2024 Serum or plasma albumin measurement (mass/volume) 3.1 g/dL Low 3.2-5.0 [facility] Albumin to globulin ratioOrd ered By: Beck Tidwell on 07-16-2024 Albumin/Globulin [Mass ratio] 1.0 {ratio} 0.9-2.4 [facility] Albumin to globulin ratio 1.0 RATIO 0.9-2.4 [facility] Alcohol, Blood (Medical)-Ser umon 07-16-2024 SERUM ETOH < 3.[address] [facility] Comment on above: Result Comment: The serum:whole blood ethanol ratio is approximately 1.14and varies slightly with hematocrit.Medical Alcohol reference interval and critical value innon-tolerant individuals; 50 - 100 Impairment 100 Intoxication 100 - 250 Severe Poisoning 250 - 400 Deep/possible fatal coma Performed By: #### L 501.9100, L501.9520, L505.5000, L506.0250, L503.6620, L503.0105 ####[facility] [address] [place], [place], [address] Arterial patency Wrist arter y --pre arterial punctureOrdered By: Beck Tidwell on 07-16-[address] [facility] Assessment of wrist artery patency prior to arterial puncture Positive [facility] Assessment of wrist artery p atency prior to arterial punctureOrdered By: Beck Tidwell on 07-16-2024 Arterial patency Wrist artery --pre arterial puncture Positive [facility] BNP,B-Type NATRIURETIC PEPTI Tho 07-16-2024 Natriuretic peptide B (Bld) [Mass/Vol] 124.0 pg/mL High 0-100 [facility] Comment on above: Performed By: #### L 501.9100, L501.9520, L505.5000, L506.0250, L503.6620, L503.0105 ####[facility] [address] [place], [address] Base excess Calc (BldV) [Mol es/Vol]Ordered By: Beck Tidwell on 07-16-2024 Blood Gas Base Excess 14 mmol/L [facility] -2-2 [facility] Blood base excess determination 14 mmol/L [facility]2-2 [facility] Bilirubin, totalOrdered By: Beck Tidwell on 07-16-2024 Bilirubin [Mass/Vol] 1.00 mg/dL 0.20-1.00 [facility] Comment on above: For patients on eltr ombopag therapy, use of Dimension Collins TBIL is not recommended. Bilirubin, total 1.00 mg/dL 0.20-1.00 [facility] Blood Gases by CPSon 025 ADI TEST Positive Normal [facility] Comment on above: Performed By: #### L 9000.0800 ####[facility] [address] [place], [address] Base excess Calc (Bld) [Moles/Vol] 14 mmol/L High -2 to +2 [facility] Comment on above: Performed By: #### L 9000.0800 ####[facility] [address] [place], [address] Blood Gas Type ART Normal [facility] Comment on above: Performed By: #### L 9000.0800 ####[facility] [address] [place], [address] CO2 [Moles/Vol] 42 mmol/L Normal [facility] Comment on above: Performed By: #### L 9000.08 ####[facility] [address] [place], [address] [facility] Comment on above: Performed By: #### L 8999.0800 ####[facility] [address] [place], [address] HCO3 (Bld) [Moles/Vol] 39.5 mmol/L High 22-26 [facility] Comment on above: Performed By: #### L 0.0800 ####[facility] [address] [place], [address] Mode Not entered [facility] Comment on above: Performed By: #### L 0.0800 ####[facility] [address] [place], [address] O2 Delivery Dev BiPAP Normal [facility] Comment on above: Performed By: #### L 0.0800 ####[facility] [address] [place], [address] pCO2 75.8 mmHg Invalid Interpretation Code 35-45 [facility] Comment on above: Performed By: #### L 0.0800 ####[facility] [address] [place], [address] [facility] Comment on above: Performed By: #### L 0.0800 ####[facility] [address] [place], [address] pH (Bld) 7.33 [pH] Low 7.35-7.45 [facility] Comment on above: Performed By: #### L 9000.0800 ####[facility] [address] [place], [address] [facility] Comment on above: Performed By: #### L 9000.0800 ####[facility] [address] [place], [address] PO2 77 mmHG Normal 75-100 [facility] Comment on above: Performed By: #### L 9000.0800 ####[facility] [address] [place], [address] Read Back By Yes Normal [facility] Comment on above: Performed By: #### L 9000.0800 ####[facility] [address] [place], [address] [facility] Comment on above: Performed By: #### L 9000.0800 ####[facility] [address] [place], [address] SITE L Radial Normal [facility] Comment on above: Performed By: #### L 0.0800 ####[facility] [address] [place], [address] SO2 93 Low 95-99 [facility] Comment on above: Performed By: #### L 9000.0800 ####[facility] [address] [place], [address] Vt 550.[address] [facility] Comment on above: Performed By: #### L 9000.0800 ####[facility] [address] [place], [address] ADI TEST Positive Normal [facility] Comment on above: Performed By: #### L 9000.0800 ####[facility] [address] [place], [address] Base excess Calc (Bld) [Moles/Vol] 15 mmol/L High -2 to +2 [facility] Comment on above: Performed By: #### L 9000.0800 ####[facility] [address] [place], [address] Blood Gas Type ART Normal [facility] Comment on above: Performed By: #### L 9000.0800 ####[facility] [address] [place], [address] CO2 [Moles/Vol] 44 mmol/L Normal [facility] Comment on above: Performed By: #### L 9000.0800 ####[facility] [address] [place], [address] [address] [facility] Comment on above: Performed By: #### L 9000.0800 ####[facility] [address] [place], [address] HCO3 (Bld) [Moles/Vol] 41.7 mmol/L High 22-26 [facility] Comment on above: Performed By: #### L 9000.0800 ####[facility] [address] [place], [address] Mode Not entered Normal [facility] Comment on above: Performed By: #### L 9000.0800 ####[facility] [address] [place], [address] O2 Delivery Dev BiPAP Normal [facility] Comment on above: Performed By: #### L 9000.0800 ####[facility] [address] [place], [address] pCO2 84.3 mmHg Invalid Interpretation Code 35-45 [facility] Comment on above: Performed By: #### L 9000.0800 ####[facility] [address] [place], [address] [facility] Comment on above: Performed By: #### L 9000.0800 ####[facility] [address] [place], [address] pH (Bld) 7.30 [pH] Low 7.35-7.45 [facility] Comment on above: Performed By: #### L 9000.0800 ####[facility] [address] [place], [address] [facility] Comment on above: Performed By: #### L 9000.0800 ####[facility] [address] [place], [address] PO2 87 mmHG Normal 75-100 [facility] Comment on above: Performed By: #### L 9000.0800 ####[facility] [address] [place], [address] Read Back By Yes Normal [facility] Comment on above: Performed By: #### L 9000.0800 ####[facility] [address] [place], [address] [facility] Comment on above: Performed By: #### L 9000.0800 ####[facility] [address] [place], [address] SITE L Radial Normal [facility] Comment on above: Performed By: #### L 9000.0800 ####[facility] [address] [place], [address] SO2 95 Normal 95-99 [facility] Comment on above: Performed By: #### L 9000.0800 ####[facility] [address] [place], [address] Blood base excess determinat ionOrdered By: Beck Tidwell on 07-16-2024 Base excess Calc (BldV) [Moles/Vol] 14 mmol/L High -2-2 [facility] Blood bicarbonate measuremen tOrdered By: Beck Tidwell on 07-16-2024 Blood Gas Bicarbonate Actual 39.5 mmol/L [facility] HCO3 (Bld) [Moles/Vol] 39.5 mmol/L High - [facility] Blood bicarbonate measurement 39.5 mmol/L High - [facility] CBC W/Diff, Automatedon 07-05 Absolute Lymph 0.32 X10 3/uL Low 0.83-4.51 [facility] Comment on above: Performed By: #### L 501.5200, L500.4050, L100.0100, L501.2300 ####[facility] [address] [place], [address] Absolute Neut 4.3 X10 3/uL Normal 2.0-7.7 [facility] Comment on above: Performed By: #### L 501.5200, L500.4050, L100.0100, L501.2300 ####[facility] [address] [place], [address] Basophils/100 WBC (Bld) 0.0 % Normal 0-1 [facility] Comment on above: Performed By: #### L 501.5200, L500.4050, L100.0100, L501.2300 ####[facility] [address] [place], [address] Eosinophils/100 WBC (Bld) 0.2 % Normal 0-5 [facility] Comment on above: Performed By: #### L 501.5200, L500.4050, L100.0100, L501.2300 ####[facility] [address] [place], [address] Erythrocyte distribution width (RBC) [Ratio] 14.0 % Normal 11.6-14.6 [facility] Comment on above: Performed By: #### L 501.5200, L500.4050, L100.0100, L501.2300 ####[facility] [address] [place], [address] Hematocrit (Bld) [Volume fraction] 32.5 % Low 37-47 [facility] Comment on above: Performed By: #### L 501.5200, L500.4050, L100.0100, L501.2300 ####[facility] [address] [place], [address] Hemoglobin (Bld) [Mass/Vol] 9.5 g/dL Low 12.0-15.0 [facility] Comment on above: Performed By: #### L 501.5200, L500.4050, L100.0100, L501.2300 ####[facility] [address] [place], [address] IG% 0.400 Normal 0.0-0.9 [facility] Comment on above: Result Comment: IG% - Immature Granulocytes (promyelocytes, myelocytes andmetamyelocytes) > 1% indicates that a LEFT SHIFT is Present. Performed By: #### L 501.5200, L500.4050, L100.0100, L501.2300 ####[facility] [address] [place], [address] Lymphocytes/100 WBC (Bld) 6.7 % Low 19-41 [facility] Comment on above: Performed By: #### L 501.5200, L500.4050, L100.0100, L501.2300 ####[facility] [address] [place], [address] MCH (RBC) [Entitic mass] 28.3 pg Normal 27.0-32.0 [facility] Comment on above: Performed By: #### L 501.5200, L500.4050, L100.0100, L501.2300 ####[facility] [address] [place], [address] MCHC (RBC) [Mass/Vol] 29.2 g/dL Low 32-36 [facility] Comment on above: Performed By: #### L 501.5200, L500.4050, L100.0100, L501.2300 ####[facility] [address] [place], [address] MCV (RBC) [Entitic vol] 96.7 fL Normal 81-99 [facility] Comment on above: Performed By: #### L 501.5200, L500.4050, L100.0100, L501.2300 ####[facility] [address] [place], [address] Monocytes/100 WBC (Bld) 3.3 % Normal 0-10 [facility] Comment on above: Performed By: #### L 501.5200, L500.4050, L100.0100, L501.2300 ####[facility] [address] [place], [address] Neutrophils/100 WBC (Bld) 89.4 % High 47-70 [facility] Comment on above: Performed By: #### L 501.5200, L500.4050, L100.0100, L501.2300 ####[facility] [address] [place], [address] Nucleated RBC (Bld) [#/Vol] 0 10*3/uL Normal 0-5 [facility] Comment on above: Performed By: #### L 501.5200, L500.4050, L100.0100, L501.2300 ####[facility] [address] [place], [address] Platelet mean volume (Bld) [Entitic vol] 9.3 fL Normal 6.2-12.0 [facility] Comment on above: Performed By: #### L 501.5200, L500.4050, L100.0100, L501.2300 ####[facility] [address] [place], [address] Platelets (Bld) [#/Vol] 159 10*3/uL Normal 150-450 [facility] Comment on above: Performed By: #### L 501.5200, L500.4050, L100.0100, L501.2300 ####[facility] [address] [place], [address] RBC (Bld) [#/Vol] 3.36 10*6/uL Low 4.2-5.4 [facility] Comment on above: Performed By: #### L 501.5200, L500.4050, L100.0100, L501.2300 ####[facility] [address] [place], [address] RDW SD 49.1 fl High 35.1-43.9 [facility] Comment on above: Performed By: #### L 501.5200, L500.4050, L100.0100, L501.2300 ####[facility] [address] [place], [address] WBC (Bld) [#/Vol] 4.8 10*3/uL Normal 4.4-11.0 [facility] Comment on above: Performed By: #### L 501.5200, L500.4050, L100.0100, L501.2300 ####[facility] [address] [place], [address] Comprehensive Metabolic [facility] 07-16-2024 Albumin [Mass/Vol] 3.1 g/dL Low 3.2-5.0 [facility] Comment on above: Performed By: #### L 501.5200, L500.4050, L100.0100, L501.2300 ####[facility] [address] [place], [address] Albumin/Globulin [Mass ratio] 1.0 {ratio} Normal 0.9-2.4 [facility] Comment on above: Performed By: #### L 501.5200, L500.4050, L100.0100, L501.2300 ####[facility] [address] [place], [address] ALK P 83 U/L Normal 45-117 [facility] Comment on above: Performed By: #### L 501.5200, L500.4050, L100.0100, L501.2300 ####[facility] [address] [place], [address] ALT [Catalytic activity/Vol] 16 U/L Normal 13-56 [facility] Comment on above: Performed By: #### L 501.5200, L500.4050, L100.0100, L501.2300 ####[facility] [address] [place], [address] AST [Catalytic activity/Vol] 12 U/L Low 15-37 [facility] Comment on above: Performed By: #### L 501.5200, L500.4050, L100.0100, L501.2300 ####[facility] [address] [place], [address] Bilirubin [Mass/Vol] 1.00 mg/dL Normal 0.20-1.00 [facility] Comment on above: Result Comment: For patients on eltrombopag therapy, use of Dimension Collins TBIL is not recommended. Performed By: #### L 501.5200, L500.4050, L100.0100, L501.2300 ####[facility] [address] [place], [address] BUN/CRE 21.8 RATIO High 10-20 [facility] Comment on above: Performed By: #### L 501.5200, L500.4050, L100.0100, L501.2300 ####[facility] [address] [place], [address] CA,Total 8.9 mg/dL Normal 8.5-10.1 [facility] Comment on above: Performed By: #### L 501.5200, L500.4050, L100.0100, L501.2300 ####[facility] [address] [place], [address] Chloride [Moles/Vol] 100 mmol/L Normal 98-107 [facility] Comment on above: Performed By: #### L 501.5200, L500.4050, L100.0100, L501.2300 ####[facility] [address] [place], [address] CO2 [Moles/Vol] 35.0 mmol/L High 21.0-32.0 [facility] Comment on above: Performed By: #### L 501.5200, L500.4050, L100.0100, L501.2300 ####[facility] [address] [place], [address] Creatinine [Mass/Vol] 0.64 mg/dL Normal 0.55-1.02 [facility] Comment on above: Result Comment: The validity of the calculated GFR GFRAA in patients over70 years has not been determined. Clinical correlation isessential. Performed By: #### L 501.5200, L500.4050, L100.0100, L501.2300 ####[facility] [address] [place], [address] ECRCL 123.71 ml/min Normal [facility] Comment on above: Performed By: #### L 501.5200, L500.4050, L100.0100, L501.2300 ####[facility] [address] [place], [address] EST GFR - AA 121 mL/min Normal >60 [facility] Comment on above: Result Comment: Afri can Swiss GFR Calc Performed By: #### L 501.5200, L500.4050, L100.0100, L501.2300 ####[facility] [address] [place], [address] GAP 3 Low 5-15 [facility] Comment on above: Performed By: #### L 501.5200, L500.4050, L100.0100, L501.2300 ####[facility] [address] [place], [address] GFR/1.73 sq M.predicted among non-blacks MDRD (S/P/Bld) [Vol rate/Area] 100 mL/min/{1.73_m2} Normal >60 [facility] Comment on above: Result Comment: Non- GFR Calc Performed By: #### L 501.5200, L500.4050, L100.0100, L501.2300 ####[facility] [address] [place], [address] Globulin (S) [Mass/Vol] 3.0 g/dL Normal 2.2-4.2 [facility] Comment on above: Performed By: #### L 501.5200, L500.4050, L100.0100, L501.2300 ####[facility] [address] [place], [address] Glucose [Mass/Vol] 181 mg/dL High 74-106 [facility] Comment on above: Result Comment: Fast ing Glucose result greater than or equal to 126 mg/dLsuggests DIABETES MELLITUS per A.D.A. criteria. Performed By: #### L 501.5200, L500.4050, L100.0100, L501.2300 ####[facility] [address] [place], [address] Potassium [Moles/Vol] 5.0 mmol/L Normal 3.5-5.1 [facility] Comment on above: Performed By: #### L 501.5200, L500.4050, L100.0100, L501.2300 ####[facility] [address] [place], [address] Sodium [Moles/Vol] 138 mmol/L Normal 136-145 [facility] Comment on above: Performed By: #### L 501.5200, L500.4050, L100.0100, L501.2300 ####[facility] [address] [place], [address] T PROT 6.1 g/dL Low 6.4-8.2 [facility] Comment on above: Performed By: #### L 501.5200, L500.4050, L100.0100, L501.2300 ####[facility] [address] [place], [address] Urea nitrogen [Mass/Vol] 14 mg/dL Normal 7-18 [facility] Comment on above: Performed By: #### L 501.5200, L500.4050, L100.0100, L501.2300 ####[facility] [address] [place], [address] D-Dimer Quantitative (DVT/PE )on 07-16-2024 D-DIMER QUANT 0.27 FEU/ug/m Normal 0.27-0.49 [facility] Comment on above: Result Comment: NORM AL D-Dimer level (<0.50) indicates no DVT or PE. Performed By: #### L 300.8000 ####[facility] [address] [place], [address] D-dimer measurement for deep venous thrombosisOrdered By: Beck Tidewll on 07-16-2024 D-Dimer Quantitative (PE/DVT) 0.27 FEU/ug/m 0.27-0.49 [facility] Comment on above: NORMAL D-Dimer level (<0.50) indicates no DVT or PE. D-dimer measurement for deep venous thrombosis 0.27 FEU/ug/m 0.27-0.49 [facility] Determination of fraction of inspired oxygenOrdered By: Beck Tidwell on 07-16-2024 Blood Gas Oxygen Percent 30.0 [facility] Determination of fraction of inspired oxygen 30.0 [facility] Folates, (Folic Acid)on 07-05 FOLATES 11.00 ng/mL Normal 3.1-55.4 [facility] Comment on above: Order Comment: Has P atient had X-rays with Contrast this admission? [place] Result Comment: Slig ht Hemolysis, Result may be falsely increased. Performed By: #### L 501.9100, L501.9520, L505.5000, L506.0250, L503.6620, L503.0105 ####[facility] [address] [place], [address] Laboratory - Chemistry and C hemistry - challengeOrdered By: Beck Tidwell on 07-16-2024 AST [Catalytic activity/Vol] 12 U/L Low 15-37 [facility] Magnesiumon 07-16-2024 Magnesium [Mass/Vol] 2.3 mg/dL Normal 1.6-2.6 [facility] Comment on above: Performed By: #### L 501.5200, L500.4050, L100.0100, L501.2300 ####[facility] [address] [place], [address] Measurement, pHOrdered By: Jan Tidwell on 07-16-2024 pH (Unsp spec) 7.33 [pH] Low 7.35-7.45 [facility] No Panel InformationOrdered By: Beck Tidwell on 07-16-2024 Bedside Blood Gas PEEP 10 [facility] Bld Gas Crit Called To/Read Back By Yes [facility] Bld Gas Peak Inspiratory Pressure 24 [facility] Blood Gas Respiration Rate 20 [facility] Blood Gas Sample Site L Radial [facility] Blood Gas Specimen Type ART [facility] Blood Gas Tidal Volume 550.0 mL [facility] Blood Gas Vent Mode Not entered [facility] Oxygen Delivery Device BiPAP [facility] ART [facility] L Radial [facility] Not entered [facility] BiPAP [facility] 550.[address] [facility] [address] [facility] 20 [facility] 10 [facility] Yes [facility] 12 U/L Low 15-37 [facility] Oxygen saturation measuremen tOrdered By: Bekc Tidwell on 07-16-2024 Blood Gas Oxygen Saturation 93 % Low 95-99 [facility] Oxygen saturation measurement 93 % Low 95-99 [facility] Partial pressure of carbon d ioxide measurementOrdered By: Beck Tidwell on 07-16-2024 Arterial Blood Partial Pressure CO2 75.8 mmHg High 35-45 [facility] Partial pressure of carbon dioxide measurement 75.8 mmHg High 35-45 [facility] Partial pressure of oxygen m easurementOrdered By: Beck Tidwell on 07-16-2024 Arterial Blood Partial Pressure O2 77 mmHG 75-100 [facility] Partial pressure of oxygen measurement 77 mmHG 75-100 [facility] Phosphoruson 07-16-2024 Phosphate [Mass/Vol] 1.6 mg/dL Low 2.5-4.9 [facility] Comment on above: Performed By: #### L 501.5200, L500.4050, L100.0100, L501.2300 ####[facility] [address] [place], [place], [address] RESPIRATORY PANEL MOLECULARo n 07-16-[address] [facility] Comment on above: Performed By: #### M 100.638 ####[facility] [address] [place], [place], [address] Serum globulin measurementOr dered By: Beck Tidwell on 07-16-2024 Globulin (S) [Mass/Vol] 3.0 g/dL 2.2-4.2 [facility] Serum globulin measurement 3.0 g/dL 2.2-4.2 [facility] Serum or plasma alanine guerrero otransferase (ALT) measurementOrdered By: Beck Tidwell on 07-16-2024 ALT [Catalytic activity/Vol] 16 U/L 13-56 [facility] Serum or plasma albumin marisela urement (mass/volume)Ordered By: Beck Tidwell on 07-16-2024 Albumin [Mass/Vol] 3.1 g/dL Low 3.2-5.0 [facility] Serum or plasma alkaline shaheen sphatase measurementOrdered By: Beck Tidwell on 07-16-2024 ALP [Catalytic activity/Vol] 83 U/L 45-117 [facility] Thyroid Stim Hormone (TSH)on 07-16-2024 TSH 0.474 uIU/mL Normal 0.358-3.740 [facility] Comment on above: Order Comment: Has P atient had X-rays with Contrast this admission? N Performed By: #### L 501.9100, L501.9520, L505.5000, L506.0250, L503.6620, L503.0105 ####[facility] [address] [place], [place], [id number] Total carbon dioxide measure mentOrdered By: Beck Tidwell on 07-16-2024 Blood Gas Total CO2 42 mmol/L [facility] CO2 [Moles/Vol] 42 mmol/L [facility] Total carbon dioxide measurement 42 mmol/L [facility] Total proteinOrdered By: Richardson Tidwell on 07-16-2024 Protein [Mass/Vol] 6.1 g/dL Low 6.4-8.2 [facility] Total protein 6.1 g/dL Low 6.4-8.2 [facility] Vitamin B12on 07-16-2024 Cobalamin (Vitamin B12) [Mass/Vol] 301 pg/mL Normal 211-911 [facility] Comment on above: Performed By: #### L 501.9100, L501.9520, L505.5000, L506.0250, L503.6620, L503.0105 ####[facility] [address] [place], [place], [id number] pH (Unsp spec)Ordered By: Arias Tidwell on 07-16-2024 Blood Gas pH 7.33 Low 7.35-7.45 [facility] Measurement, pH 7.33 Low 7.35-7.45 [facility] 12 Lead EKGon 07-15-[address] [facility] Activated partial thrombopla stin time (aPTT) in platelet poor plasma by coagulation aOrdered By: Junior Salter on 07-15-2024 aPTT Coag (PPP) [Time] 21.0 s Low 24.1-36.2 [facility] BNP (brain natriuretic pepti de measurement)Ordered By: Beck Tidwell on 07-15-2024 Natriuretic peptide B (Bld) [Mass/Vol] 124.0 pg/mL High 0-100 [facility] BNP (brain natriuretic peptide measurement) 124.0 pg/mL High 0-100 [facility] Base excess Calc (BldV) [Mol es/Vol]Ordered By: Junior Salter on 07-15-2024 Venous Blood Base Excess 12 mmol/L High -1.0-3.5 [facility] Venous blood base excess measurement 12 mmol/L High -1.0-3.5 [facility] Basic Metabolic Profile (BMP )on 07-15-2024 BUN/CRE 19.3 RATIO Normal 10-20 [facility] Comment on above: Performed By: #### L 100.0100, L500.2500, L300.4310, L300.3900 ####[facility] [address] [place], [address] CA,Total 8.8 mg/dL Normal 8.5-10.1 [facility] Comment on above: Performed By: #### L 100.0100, L500.2500, L300.4310, L300.3900 ####[facility] [address] [place], [address] Chloride [Moles/Vol] 98 mmol/L Normal 98-107 [facility] Comment on above: Performed By: #### L 100.0100, L500.2500, L300.4310, L300.3900 ####[facility] [address] [place], [address] CO2 [Moles/Vol] 33.0 mmol/L High 21.0-32.0 [facility] Comment on above: Performed By: #### L 100.0100, L500.2500, L300.4310, L300.3900 ####[facility] [address] [place], [address] Creatinine [Mass/Vol] 0.83 mg/dL Normal 0.55-1.02 [facility] Comment on above: Result Comment: The validity of the calculated GFR GFRAA in patients over70 years has not been determined. Clinical correlation isessential. Performed By: #### L 100.0100, L500.2500, L300.4310, L300.3900 ####[facility] [address] [place], [address] ECRCL 95.41 ml/min Normal [facility] Comment on above: Performed By: #### L 100.0100, L500.2500, L300.4310, L300.3900 ####[facility] [address] [place], [address] EST GFR - AA 90 mL/min Normal >60 [facility] Comment on above: Result Comment: Afri can Swiss GFR Calc Performed By: #### L 100.0100, L500.2500, L300.4310, L300.3900 ####[facility] [address] [place], [address] GAP 5 Normal 5-15 [facility] Comment on above: Performed By: #### L 100.0100, L500.2500, L300.4310, L300.3900 ####[facility] [address] [place], [address] GFR/1.73 sq M.predicted among non-blacks MDRD (S/P/Bld) [Vol rate/Area] 74 mL/min/{1.73_m2} Normal >60 [facility] Comment on above: Result Comment: Non- GFR Calc Performed By: #### L 100.0100, L500.2500, L300.4310, L300.3900 ####[facility] [address] [place], [address] Glucose [Mass/Vol] 157 mg/dL High 74-106 [facility] Comment on above: Result Comment: Fast ing Glucose result greater than or equal to 126 mg/dLsuggests DIABETES MELLITUS per A.D.A. criteria. Performed By: #### L 100.0100, L500.2500, L300.4310, L300.3900 ####[facility] [address] [place], [address] Potassium [Moles/Vol] 4.4 mmol/L Normal 3.5-5.1 [facility] Comment on above: Result Comment: Slig ht Hemolysis, Result may be falsely increased. Performed By: #### L 100.0100, L500.2500, L300.4310, L300.3900 ####[facility] [address] [place], [address] Sodium [Moles/Vol] 136 mmol/L Normal 136-145 [facility] Comment on above: Performed By: #### L 100.0100, L500.2500, L300.4310, L300.3900 ####[facility] [address] [place], [address] Urea nitrogen [Mass/Vol] 16 mg/dL Normal 7-18 [facility] Comment on above: Performed By: #### L 100.0100, L500.2500, L300.4310, L300.3900 ####[facility] [address] [place], [address] Blood Gases by [facility] 025 ADI TEST Positive Normal [facility] Comment on above: Performed By: #### L 9000.0800 ####[facility] [address] [place], [address] Base excess Calc (Bld) [Moles/Vol] 12 mmol/L High -2 to +2 [facility] Comment on above: Performed By: #### L 9000.0800 ####[facility] [address] [place], [address] Blood Gas Type ART [facility] Comment on above: Performed By: #### L 9000.0800 ####[facility] [address] [place], [address] CO2 [Moles/Vol] 42 mmol/L Normal [facility] Comment on above: Performed By: #### L 0.0800 ####[facility] [address] [place], [address] [address] [facility] Comment on above: Performed By: #### L 9000.0800 ####[facility] [address] [place], [address] HCO3 (Bld) [Moles/Vol] 38.9 mmol/L High 22-26 [facility] Comment on above: Performed By: #### L 9000.0800 ####[facility] [address] [place], [address] Mode Not entered [facility] Comment on above: Performed By: #### L 9000.0800 ####[facility] [address] [place], [address] O2 Delivery Dev Not entered [facility] Comment on above: Performed By: #### L 0.0800 ####[facility] [address] [place], [address] pCO2 88.0 mmHg Invalid Interpretation Code 35-45 [facility] Comment on above: Performed By: #### L 9000.0800 ####[facility] [address] [place], [address] pH (Bld) 7.25 [pH] Low 7.35-7.45 [facility] Comment on above: Performed By: #### L 9000.0800 ####[facility] [address] [place], [address] PO2 74 mmHG Low 75-100 [facility] Comment on above: Performed By: #### L 9000.0800 ####[facility] [address] [place], [address] Read Back By Yes Normal [facility] Comment on above: Performed By: #### L 9000.0800 ####[facility] [address] [place], [address] SITE L Radial Normal [facility] Comment on above: Performed By: #### L 9000.0800 ####[facility] [address] [place], [address] SO2 91 Low 95-99 [facility] Comment on above: Performed By: #### L 9000.0800 ####[facility] [address] [place], [address] CBC W/Diff, Automatedon 02- Absolute Lymph 0.77 X10 3/uL Low 0.83-4.51 [facility] Comment on above: Performed By: #### L 100.0100, L500.2500, L300.4310, L300.3900 ####[facility] [address] [place], [address] Absolute Neut 5.6 X10 3/uL Normal 2.0-7.7 [facility] Comment on above: Performed By: #### L 100.0100, L500.2500, L300.4310, L300.3900 ####[facility] [address] [place], [address] Basophils/100 WBC (Bld) 0.3 % Normal 0-1 [facility] Comment on above: Performed By: #### L 100.0100, L500.2500, L300.4310, L300.3900 ####[facility] [address] [place], [address] Eosinophils/100 WBC (Bld) 0.7 % Normal 0-5 [facility] Comment on above: Performed By: #### L 100.0100, L500.2500, L300.4310, L300.3900 ####[facility] [address] [place], [address] Erythrocyte distribution width (RBC) [Ratio] 14.0 % Normal 11.6-14.6 [facility] Comment on above: Performed By: #### L 100.0100, L500.2500, L300.4310, L300.3900 ####[facility] [address] [place], [address] Hematocrit (Bld) [Volume fraction] 36.4 % Low 37-47 [facility] Comment on above: Performed By: #### L 100.0100, L500.2500, L300.4310, L300.3900 ####[facility] [address] [place], [address] Hemoglobin (Bld) [Mass/Vol] 10.3 g/dL Low 12.0-15.0 [facility] Comment on above: Performed By: #### L 100.0100, L500.2500, L300.4310, L300.3900 ####[facility] [address] [place], [address] IG% 0.400 Normal 0.0-0.9 [facility] Comment on above: Result Comment: IG% - Immature Granulocytes (promyelocytes, myelocytes andmetamyelocytes) > 1% indicates that a LEFT SHIFT is Present. Performed By: #### L 100.0100, L500.2500, L300.4310, L300.3900 ####[facility] [address] [place], [address] Lymphocytes/100 WBC (Bld) 10.8 % Low 19-41 [facility] Comment on above: Performed By: #### L 100.0100, L500.2500, L300.4310, L300.3900 ####[facility] [address] [place], [address] MCH (RBC) [Entitic mass] 27.8 pg Normal 27.0-32.0 [facility] Comment on above: Performed By: #### L 100.0100, L500.2500, L300.4310, L300.3900 ####[facility] [address] [place], [address] MCHC (RBC) [Mass/Vol] 28.3 g/dL Low 32-36 [facility] Comment on above: Performed By: #### L 100.0100, L500.2500, L300.4310, L300.3900 ####[facility] [address] [place], [address] MCV (RBC) [Entitic vol] 98.1 fL Normal 81-99 [facility] Comment on above: Performed By: #### L 100.0100, L500.2500, L300.4310, L300.3900 ####[facility] [address] [place], [address] Monocytes/100 WBC (Bld) 9.6 % Normal 0-10 [facility] Comment on above: Performed By: #### L 100.0100, L500.2500, L300.4310, L300.3900 ####[facility] [address] [place], [address] Neutrophils/100 WBC (Bld) 78.2 % High 47-70 [facility] Comment on above: Performed By: #### L 100.0100, L500.2500, L300.4310, L300.3900 ####[facility] [address] [place], [address] Nucleated RBC (Bld) [#/Vol] 0 10*3/uL Normal 0-5 [facility] Comment on above: Performed By: #### L 100.0100, L500.2500, L300.4310, L300.3900 ####[facility] [address] [place], [address] Platelet mean volume (Bld) [Entitic vol] 9.2 fL Normal 6.2-12.0 [facility] Comment on above: Performed By: #### L 100.0100, L500.2500, L300.4310, L300.3900 ####[facility] [address] [place], [address] Platelets (Bld) [#/Vol] 184 10*3/uL Normal 150-450 [facility] Comment on above: Performed By: #### L 100.0100, L500.2500, L300.4310, L300.3900 ####[facility] [address] [place], [address] RBC (Bld) [#/Vol] 3.71 10*6/uL Low 4.2-5.4 [facility] Comment on above: Performed By: #### L 100.0100, L500.2500, L300.4310, L300.3900 ####[facility] [address] [place], [address] RDW SD 50.2 fl High 35.1-43.9 [facility] Comment on above: Performed By: #### L 100.0100, L500.2500, L300.4310, L300.3900 ####[facility] [address] [place], [address] WBC (Bld) [#/Vol] 7.2 10*3/uL Normal 4.4-11.0 [facility] Comment on above: Performed By: #### L 100.0100, L500.2500, L300.6140, L300.7970 ####[facility] [address] [place], [address] CO2 (BldV) [Moles/Vol]Ordere d By: Junior Salter on 07-15-2024 CO2 [Moles/Vol] 41 mmol/L High 23-33 [facility] Venous blood total carbon dioxide measurement 41 mmol/L High 23-33 [facility] CO2 (BldV) [Partial pressure ]Ordered By: Junior Salter on 07-15-2024 Bed Mix Venous Bld PCO2 at Pat Temp 75.1 mmHg High 41-51 [facility] Venous blood partial pressure of carbon dioxide measurement 75.1 mmHg High 41-51 [facility] Chest 1 View (Portable)on Chest 1 View (Portable) Normal [facility] Emergency Department Summary on 07-15-2024 Emergency Department Summary Normal [facility] Folic acid measurementOrdere d By: Beck Tidwell on 07-15-2024 Folate 11.00 ng/mL 3.1-55.4 [facility] Comment on above: Slight Hemolysis, Re sult may be falsely increased. Folic acid measurement 11.00 ng/mL 3.1-55.4 [facility] H AND P Exam - Hospitaliston 07-15-2024 H&P Exam - Hospitalist Normal [facility] normalized rat io (INR) calculationOrdered By: Junior Salter on 07-15-2024 INR Coag (Bld) [Relative time] 0.8 {INR} [facility] normalized ratio (INR) calculation 0.8 [facility] No Panel InformationOrdered By: Junior Salter on 07-15-2024 Blood Gas Notified Time 18:37:08 [facility] 18:37:08 [facility] Oxygen (BldV) [Partial press ure]Ordered By: Junior Salter on 07-15-2024 Venous Blood Partial Pressure O2 32 mmHg 25-40 [facility] Venous blood partial pressure of oxygen measurement 32 mmHg 25-40 [facility] Partial Thromboplast Timeon 07-15-2024 aPTT Coag (Bld) [Time] 21.0 s Low 24.1-36.2 [facility] Comment on above: Performed By: #### L 100.0100, L500.2500, L300.4310, L300.3900 ####[facility] [address] [place], [address] Prothrombin Time w/INRon INR Coag (PPP) [Relative time] 0.8 {INR} Normal [facility] Comment on above: Performed By: #### L 100.0100, L500.2500, L300.4310, L300.3900 ####[facility] [address] [place], [address] PT Coag (PPP) [Time] 11.1 s Low 11.7-14.9 [facility] Comment on above: Performed By: #### L 100.0100, L500.2500, L300.4310, L300.3900 ####[facility] [address] [place], [address] Prothrombin timeOrdered By: Junior Salter on 07-15-2024 PT Coag (PPP) [Time] 11.1 s Low 11.7-14.9 [facility] Prothrombin time 11.1 SECONDS Low 11.7-14.9 [facility] Respiratory pathogens DNA an d RNA panel MARY+probe (Resp)Ordered By: Beck Tidwell on 07-15-2024 Respiratory Panel (PCR) [facility] Respiratory pathogens detect ion panel by molecular detection methodOrdered By: Beck Tidwell on 07-15-2024 Respiratory pathogens DNA and RNA panel MARY+probe (Resp) [facility] Serum ethanol measurementOrd ered By: Beck Tidwell on 07-15-2024 Ethyl Alcohol Level < 3.0 mg/dL [facility] Comment on above: The serum:whole bloo d ethanol ratio is approximately 1.14and varies slightly with hematocrit. Medical Alcohol reference interval and critical value innon-tolerant individuals; 50 - 100 Impairment 100 Intoxication 100 - 250 Severe Poisoning 250 - 400 Deep/possible fatal coma Serum ethanol measurement < 3.0 mg/dL [facility] Serum or plasma thyroid stim ulating hormone (TSH) measurement (units/volume)Ordered By: Beck Tidwell on 07-15-2024 TSH Qn 0.474 uIU/mL 0.358-3.740 [facility] TSH QnOrdered By: Beck kaplan on 07-15-2024 Thyroid Stimulating Hormone (TSH) 0.474 uIU/mL 0.358-3.740 [facility] Serum or plasma thyroid stimulating hormone (TSH) measurement (units/volume) 0.474 uIU/mL 0.358-3.740 [facility] Urine Drug Screen (VISTA)on 07-15-2024 AMPHETAMINES Normal <1000 ng/mL [facility] Comment on above: Order Comment: SENT LABEL TO [facility] TO COLLECT Result Comment: ANDIE ENT DISCHARGED Performed By: #### L 501.9100, L501.9520, L505.5000, L506.0250, L503.6620, L503.0105 ####[facility] [address] [place], [place], [address] BARBITIURATES Normal < 200 ng/mL [facility] Comment on above: Order Comment: SENT LABEL TO [facility] TO COLLECT Result Comment: ANDIE ENT DISCHARGED Performed By: #### L 501.9100, L501.9520, L505.5000, L506.0250, L503.6620, L503.0105 ####[facility] [address] [place], [place], [phone] BENZODIAZIPINE Normal < 200 ng/mL [facility] Comment on above: Order Comment: SENT LABEL TO [facility] TO COLLECT Result Comment: ANDIE ENT DISCHARGED Performed By: #### L 501.9100, L501.9520, L505.5000, L506.0250, L503.6620, L503.0105 ####[facility] [address] [place], [place], [phone] COCAINE Normal < 300 ng/mL [facility] Comment on above: Order Comment: SENT LABEL TO [facility] TO COLLECT Result Comment: ANDIE ENT DISCHARGED Performed By: #### L 501.9100, L501.9520, L505.5000, L506.0250, L503.6620, L503.0105 ####[facility] [address] [place], [address] [facility] Comment on above: Order Comment: SENT LABEL TO [facility] TO COLLECT Result Comment: ANDIE ENT DISCHARGED Performed By: #### L 501.9100, L501.9520, L505.5000, L506.0250, L503.6620, L503.0105 ####[facility] [address] [place], [address] ECSTACY Normal < 500 ng/mL [facility] Comment on above: Order Comment: SENT LABEL TO [facility] TO COLLECT Result Comment: ANDIE ENT DISCHARGED Performed By: #### L 501.9100, L501.9520, L505.5000, L506.0250, L503.6620, L503.0105 ####[facility] [address] [place], [place], [phone] METHADONE Normal < 300 ng/mL [facility] Comment on above: Order Comment: SENT LABEL TO [facility] TO COLLECT Result Comment: ANDIE ENT DISCHARGED Performed By: #### L 501.9100, L501.9520, L505.5000, L506.0250, L503.6620, L503.0105 ####[facility] [address] [place], [address] OPIATES Normal < 300 ng/mL [facility] Comment on above: Order Comment: SENT LABEL TO [facility] TO COLLECT Result Comment: ANDIE ENT DISCHARGED Performed By: #### L 501.9100, L501.9520, L505.5000, L506.0250, L503.6620, L503.0105 ####[facility] [address] [place], [address] PCP Normal < 25 ng/mL [facility] Comment on above: Order Comment: SENT LABEL TO [facility] TO COLLECT Result Comment: ANDIE ENT DISCHARGED Performed By: #### L 501.9100, L501.9520, L505.5000, L506.0250, L503.6620, L503.0105 ####[facility] [address] [place], [address] THC Normal < 50 ng/mL [facility] Comment on above: Order Comment: SENT LABEL TO [facility] TO COLLECT Result Comment: ANDIE ENT DISCHARGED Performed By: #### L 501.9100, L501.9520, L505.5000, L506.0250, L503.6620, L503.0105 ####[facility] [address] [place], [address] VISTA UDS PH Normal [facility] Comment on above: Order Comment: SENT LABEL TO [facility] TO COLLECT Result Comment: ANDIE ENT DISCHARGED Performed By: #### L 501.9100, L501.9520, L505.5000, L506.0250, L503.6620, L503.0105 ####[facility] [address] [place], [address] Venous Blood Gason 5 Blood Gas Type MARGUERITE Normal [facility] Comment on above: Performed By: #### L 9000.0810 ####[facility] [address] [place], [address] CO2 [Moles/Vol] 41 mmol/L High 23-33 [facility] Comment on above: Performed By: #### L 9000.0810 ####[facility] [address] [place], [address] HCO3 (Bld) [Moles/Vol] 39 mmol/L High 22-26 [facility] Comment on above: Performed By: #### L 9000.0810 ####[facility] [address] [place], [address] O2 Delivery Dev Not entered Normal [facility] Comment on above: Performed By: #### L 9000.0810 ####[facility] [address] [place], [address] Read Back By Yes Normal [facility] Comment on above: Performed By: #### L 9000.0810 ####[facility] [address] [place], [address] SITE Not entered Normal [facility] Comment on above: Performed By: #### L 9000.0810 ####[facility] [address] [place], [address] Time Given 18:37:[address] [facility] Comment on above: Performed By: #### L 9000.0810 ####[facility] [address] [place], [address] VBG BE 12 mmol/L High -1.0-3.5 [facility] Comment on above: Performed By: #### L 9000.0810 ####[facility] [address] [place], [address] VBG pCO2 75.1 mmHg Invalid Interpretation Code 41-51 [facility] Comment on above: Performed By: #### L 9000.0810 ####[facility] [address] [place], [address] VBG pH 7.32 Normal 7.32-7.42 [facility] Comment on above: Performed By: #### L 9000.0810 ####[facility] [address] [place], [address] VBG PO2 32 mmHg Normal 25-40 [facility] Comment on above: Performed By: #### L 9000.0810 ####[facility] [address] [place], [address] VBG SO2 53 Normal 50-70 [facility] Comment on above: Performed By: #### L 9000.0810 ####[facility] [address] [place], [place], [id number] Venous blood base excess yulia surementOrdered By: Junior Salter on 07-15-2024 Base excess Calc (BldV) [Moles/Vol] 12 mmol/L High -1.0-3.5 [facility] Venous blood bicarbonate yulia surementOrdered By: Junior Salter on 07-15-2024 HCO3 (Bld) [Moles/Vol] 39 mmol/L High 22-26 [facility] Venous blood bicarbonate measurement 39 mmol/L High 22-26 [facility] Venous blood oxygen saturati on measurementOrdered By: Junior Salter on 07-15-2024 Oxygen saturation in Blood 53 % 50-70 [facility] Venous blood oxygen saturation measurement 53 % 50-70 [facility] Venous blood pH measurementO rdered By: Junior Salter on 07-15-2024 pH (BldV) 7.32 [pH] 7.32-7.42 [facility] Venous blood partial pressur e of carbon dioxide measurementOrdered By: Junior Salter on 07-15-2024 CO2 (BldV) [Partial pressure] 75.1 mm[Hg] High 41-51 [facility] Venous blood partial pressur e of oxygen measurementOrdered By: Junior Salter on 07-15-2024 Oxygen (BldV) [Partial pressure] 32 mm[Hg] 25-40 [facility] Vitamin B12 measurementOrder ed By: Beck Tidwell on 07-15-2024 Cobalamin (Vitamin B12) [Mass/Vol] 301 pg/mL [facility] Vitamin B12 measurement 301 pg/mL [facility] aPTT Coag (PPP) [Time]Ordere d By: Junior Salter on 07-15-2024 aPTT Coag (Bld) [Time] 21.0 s Low 24.1-36.2 [facility] Activated partial thromboplastin time (aPTT) in platelet poor plasma by coagulation a 21.0 Seconds Low 24.1-36.2 [facility] pH (BldV)Ordered By: Junior echevarria on 07-15-2024 Venous Blood pH 7.32 7.32-7.42 [facility] Venous blood pH measurement 7.32 7.32-7.42 [facility] Absolute lymphocyte countOrd ered By: ED PROVIDER on 07-13-2024 Lymphocytes Auto (Unsp spec) [#/Vol] 0.96 10*3/uL 0.83-4.51 [facility] Absolute neutrophil countOrd ered By: ED PROVIDER on 07-13-2024 Neutrophils (Bld) [#/Vol] 2.9 10*3/uL 2.0-7.7 [facility] Absolute neutrophil count 2.9 X10^3/uL 2.0-7.7 [facility] Automated lymphocyte count a s percentage of total leukocytesOrdered By: ED PROVIDER on 07-13-2024 Lymphocytes/100 WBC Auto (Unsp spec) 22.2 % 19-41 [facility] Bacteria LM.HPF (Urine sed) [#/Area]Ordered By: Kendall Dsouza on 07-13-2024 Urine sediment bacteria count by microscopy (number/high power field) 0 SEEN /hpf None Seen [facility] Basic Metabolic Profile (BMP )on 07-13-2024 BUN/CRE 29.1 RATIO High 10-20 [facility] Comment on above: Performed By: #### L 500.2500, L100.0100 ####[facility] [address] [place], [address] CA,Total 9.2 mg/dL Normal 8.5-10.1 [facility] Comment on above: Performed By: #### L 500.2500, L100.0100 ####[facility] [address] [place], [address] Chloride [Moles/Vol] 99 mmol/L Normal 98-107 [facility] Comment on above: Performed By: #### L 500.2500, L100.0100 ####[facility] [address] [place], [address] CO2 [Moles/Vol] 32.0 mmol/L Normal 21.0-32.0 [facility] Comment on above: Performed By: #### L 500.2500, L100.0100 ####[facility] [address] [place], [address] Creatinine [Mass/Vol] 0.90 mg/dL Normal 0.55-1.02 [facility] Comment on above: Result Comment: The validity of the calculated GFR GFRAA in patients over70 years has not been determined. Clinical correlation isessential. Performed By: #### L 500.2500, L100.0100 ####[facility] [address] [place], [address] EST GFR - AA 82 mL/min Normal >60 [facility] Comment on above: Result Comment: Afri can Swiss GFR Calc Performed By: #### L 500.2500, L100.0100 ####[facility] [address] [place], [address] GAP 6 Normal 5-15 [facility] Comment on above: Performed By: #### L 500.2500, L100.0100 ####[facility] [address] [place], [address] GFR/1.73 sq M.predicted among non-blacks MDRD (S/P/Bld) [Vol rate/Area] 68 mL/min/{1.73_m2} Normal >60 [facility] Comment on above: Result Comment: Non- GFR Calc Performed By: #### L 500.2500, L100.0100 ####[facility] [address] [place], [address] Glucose [Mass/Vol] 205 mg/dL High 74-106 [facility] Comment on above: Result Comment: Gluc ose result greater than or equal to 200 mg/dLsuggests DIABETES MELLITUS per A.D.A. criteria. Performed By: #### L 500.2500, L100.0100 ####[facility] [address] [place], [address] Potassium [Moles/Vol] 4.4 mmol/L Normal 3.5-5.1 [facility] Comment on above: Performed By: #### L 500.2500, L100.0100 ####[facility] [address] [place], [address] Sodium [Moles/Vol] 138 mmol/L Normal 136-145 [facility] Comment on above: Performed By: #### L 500.2500, L100.0100 ####[facility] [address] [place], [address] Urea nitrogen [Mass/Vol] 26 mg/dL High - [facility] Comment on above: Performed By: #### L 500.2500, L100.0100 ####[facility] [address] [place], [address] Basophil percentageOrdered B y: ED PROVIDER on 07-13-2024 Basophils/100 WBC (Bld) 0.2 % 0-1 [facility] Basophil percentage 0.2 % 0-1 [facility] Bilirubin Test strip Ql (U)O rdered By: Kendall Dsouza on 07-13-2024 Bilirubin Ql (U) Negative Negative [facility] Blood urea nitrogen (BUN)/cr eatinine ratioOrdered By: ED PROVIDER on 07-13-2024 Urea nitrogen/Creatinine [Mass ratio] 29.1 mg/mg High 10- [facility] Blood urea nitrogen (BUN)/creatinine ratio 29.1 RATIO High - [facility] Brain/Head without Contrasto n 07-13-2024 Brain/Head without Contrast Normal [facility] CBC W/Diff, Automatedon Absolute Lymph 0.96 X10 3/uL Normal 0.83-4.51 [facility] Comment on above: Performed By: #### L 500.2500, L100.0100 ####[facility] [address] [place], [address] Absolute Neut 2.9 X10 3/uL Normal 2.0-7.7 [facility] Comment on above: Performed By: #### L 500.2500, L100.0100 ####[facility] [address] [place], [address] Basophils/100 WBC (Bld) 0.2 % Normal 0-1 [facility] Comment on above: Performed By: #### L 500.2500, L100.0100 ####[facility] [address] [place], [address] Eosinophils/100 WBC (Bld) 1.6 % Normal 0-5 [facility] Comment on above: Performed By: #### L 500.2500, L100.0100 ####[facility] [address] [place], [address] Erythrocyte distribution width (RBC) [Ratio] 13.4 % Normal 11.6-14.6 [facility] Comment on above: Performed By: #### L 500.2500, L100.0100 ####[facility] [address] [place], [address] Hematocrit (Bld) [Volume fraction] 34.5 % Low 37-47 [facility] Comment on above: Performed By: #### L 500.2500, L100.0100 ####[facility] [address] [place], [address] Hemoglobin (Bld) [Mass/Vol] 10.0 g/dL Low 12.0-15.0 [facility] Comment on above: Performed By: #### L 500.2500, L100.0100 ####[facility] [address] [place], [address] IG% 0.500 Normal 0.0-0.9 [facility] Comment on above: Result Comment: IG% - Immature Granulocytes (promyelocytes, myelocytes andmetamyelocytes) > 1% indicates that a LEFT SHIFT is Present. Performed By: #### L 500.2500, L100.0100 ####[facility] [address] [place], [address] Lymphocytes/100 WBC (Bld) 22.2 % Normal 19-41 [facility] Comment on above: Performed By: #### L 500.2500, L100.0100 ####[facility] [address] [place], [address] MCH (RBC) [Entitic mass] 28.3 pg Normal 27.0-32.0 [facility] Comment on above: Performed By: #### L 500.2500, L100.0100 ####[facility] [address] [place], [address] MCHC (RBC) [Mass/Vol] 29.0 g/dL Low 32-36 [facility] Comment on above: Performed By: #### L 500.2500, L100.0100 ####[facility] [address] [place], [address] MCV (RBC) [Entitic vol] 97.7 fL Normal 81-99 [facility] Comment on above: Performed By: #### L 500.2500, L100.0100 ####[facility] [address] [place], [address] Monocytes/100 WBC (Bld) 9.3 % Normal 0-10 [facility] Comment on above: Performed By: #### L 500.2500, L100.0100 ####[facility] [address] [place], [address] Neutrophils/100 WBC (Bld) 66.2 % Normal 47-70 [facility] Comment on above: Performed By: #### L 500.2500, L100.0100 ####[facility] [address] [place], [address] Nucleated RBC (Bld) [#/Vol] 0 10*3/uL Normal 0-5 [facility] Comment on above: Performed By: #### L 500.2500, L100.0100 ####[facility] [address] [place], [address] Platelet mean volume (Bld) [Entitic vol] 9.1 fL Normal 6.2-12.0 [facility] Comment on above: Performed By: #### L 500.2500, L100.0100 ####[facility] [address] [place], [address] Platelets (Bld) [#/Vol] 215 10*3/uL Normal 150-450 [facility] Comment on above: Performed By: #### L 500.2500, L100.0100 ####[facility] [address] [place], [address] RBC (Bld) [#/Vol] 3.53 10*6/uL Low 4.2-5.4 [facility] Comment on above: Performed By: #### L 500.2500, L100.0100 ####[facility] [address] [place], [address] RDW SD 48.3 fl High 35.1-43.9 [facility] Comment on above: Performed By: #### L 500.2500, L100.0100 ####[facility] [address] [place], [address] WBC (Bld) [#/Vol] 4.3 10*3/uL Low 4.4-11.0 [facility] Comment on above: Performed By: #### L 500.2500, L100.0100 ####[facility] [address] [place], [address] Calcium [Mass/Vol]Ordered By : ED PROVIDER on 07-13-2024 Serum or plasma calcium measurement (mass/volume) 9.2 mg/dL 8.5-10.1 [facility] Carbon dioxide measurementOr dered By: ED PROVIDER on 07-13-2024 CO2 [Moles/Vol] 32.0 mmol/L 21.0-32.0 [facility] Carbon dioxide measurement 32.0 mmol/L 21.0-32.0 [facility] Chest 1 View (Portable)on Chest 1 View (Portable) Normal [facility] Chest 1 View (Portable) Normal [facility] Chloride measurementOrdered By: ED PROVIDER on 07-13-2024 Chloride [Moles/Vol] 99 mmol/L 98-107 [facility] Chloride measurement 99 mmol/L 98-107 [facility] Clarity (U)Ordered By: Kendall Dsouza on 07-13-[address] [facility] Color (U)Ordered By: Kendall phelps on 07-13-2024 Urine color determination Yellow Yellow [facility] Creatinine [Mass/Vol]Ordered By: ED PROVIDER on 07-13-2024 Serum or plasma creatinine measurement (mass/volume) 0.90 mg/dL 0.55-1.02 [facility] Emergency Department Summary on 07-13-[address] [facility] Eosinophil percentageOrdered By: ED PROVIDER on 07-13-2024 Eosinophils/100 WBC (Bld) 1.6 % 0-5 [facility] Eosinophil percentage 1.6 % 0-5 [facility] Epithelial cells.squamous LM Ql (Urine sed)Ordered By: Kendall Dsouza on 07-13-2024 Epithelial cells.squamous LM.HPF (Urine sed) [#/Area] 0 /[HPF] 5-10 [facility] Erythrocyte distribution wid th (RBC) [Entitic vol]Ordered By: ED PROVIDER on 07-13-2024 Erythrocyte distribution width standard deviation 48.3 fl High 35.1-43.9 [facility] Erythrocyte distribution wid th (RBC) [Ratio]Ordered By: ED PROVIDER on 07-13-2024 Erythrocyte distribution width ratio 13.4 % 11.6-14.6 [facility] Erythrocyte distribution wid th ratioOrdered By: ED PROVIDER on 07-13-2024 Erythrocyte distribution width (RBC) [Ratio] 13.4 % 11.6-14.6 [facility] Erythrocyte distribution wid th standard deviationOrdered By: ED PROVIDER on 07-13-2024 Erythrocyte distribution width (RBC) [Entitic vol] 48.3 fL High 35.1-43.9 [facility] Erythrocyte distribution width (RBC) [Ratio] 48.3 fl High 35.1-43.9 [facility] Estimated glomerular filtrat ion rate (GFR) AmericanOrdered By: ED PROVIDER on 07-13-2024 Estimated GFR (MDRD) Amer 82 mL/min >60 [facility] Comment on above: GFR Calc Estimated glomerular filtration rate (GFR) 82 mL/min >60 [facility] Glomerular filtration rate ( GFR) estimationOrdered By: ED PROVIDER on 07-13-2024 Estimated GFR (MDRD) Non-Af Amer 68 mL/min >60 [facility] Comment on above: Non- GFR Calc GFR/1.73 sq M.predicted among non-blacks MDRD (S/P/Bld) [Vol rate/Area] 68 mL/min/{1.73_m2} >60 [facility] Glomerular filtration rate (GFR) estimation 68 mL/min >60 [facility] Glucose Ql (U)Ordered By: Pierre Dsouza on 07-13-2024 Glucose (U) [Mass/Vol] 50 mg/dL High Normal [facility] Urine glucose detection 50 mg/dl High Normal [facility] Glucose measurementOrdered B y: ED PROVIDER on 07-13-2024 Glucose [Mass/Vol] 205 mg/dL High 74-106 [facility] Comment on above: Glucose result great er than or equal to 200 mg/dLsuggests DIABETES MELLITUS per A.D.A. criteria. Glucose measurement 205 mg/dL High 74-106 [facility] Hematocrit Auto (Bld) [Volum e fraction]Ordered By: ED PROVIDER on 07-13-2024 Hematocrit (Bld) [Volume fraction] 34.5 % Low 37-47 [facility] Automated blood hematocrit (percentage) 34.5 % Low 37-47 [facility] Hemoglobin measurementOrdere d By: ED PROVIDER on 07-13-2024 Hemoglobin (Bld) [Mass/Vol] 10.0 g/dL Low 12.0-15.0 [facility] Hemoglobin measurement 10.0 g/dL Low 12.0-15.0 [facility] Immature granulocytes/100 WB C Auto (Bld)Ordered By: ED PROVIDER on 07-13-2024 Immature granulocytes/100 WBC (Bld) 0.500 % 0.0-0.9 [facility] Comment on above: IG% - Immature Granu locytes (promyelocytes, myelocytes and metamyelocytes) > 1% indicates that a LEFT SHIFT is Present. Automated immature granulocyte percentage 0.500 % 0.0-0.9 [facility] Influenza virus A and B and SARS-CoV-2 (COVID-19) and Respiratory syncytial virus RNAOrdered By: Kendall Dsouza on 07-13-2024 SARS-CoV-2 (COVID-19) RNA MARY+probe Ql (Unsp spec) [facility] SARS-CoV-2 (COVID-19) RNA MARY+probe Ql (Unsp spec) [facility] SARS-CoV-2 (COVID-19) RNA MARY+probe Ql (Unsp spec) [facility] SARS-CoV-2 (COVID-19) RNA MARY+probe Ql (Unsp spec) [facility] Ketones Test strip Ql (U)Ord ered By: Kendall Dsouza on 07-13-2024 Ketones Ql (U) Negative Negative [facility] Leukocyte esterase Test stri p Ql (U)Ordered By: Kendall Dsouza on 07-13-2024 Urine leukocyte esterase detection by dipstick 25 /ul High Negative [facility] Lymphocytes Auto (Unsp spec) [#/Vol]Ordered By: ED PROVIDER on 07-13-2024 Lymphocytes (Bld) [#/Vol] 0.96 10*3/uL 0.83-4.51 [facility] Absolute lymphocyte count 0.96 X10^3/uL 0.83-4.51 [facility] Lymphocytes/100 WBC Auto (Un sp spec)Ordered By: ED PROVIDER on 07-13-2024 Lymphocytes/100 WBC (Bld) 22.2 % [facility] Automated lymphocyte count as percentage of total leukocytes 22.2 % [facility] M100.678on 07-13-2024 M100.678 Pending SARS-CoV-2 (COVID 19) Negative INFLUENZA A Negative INFLUENZA B Negative RSV PCR Negative Normal [facility] Comment on above: Performed By: #### M 100.678 ####[facility] [address] [place], [place], [address] M100.678 Pending SARS-CoV-2 (COVID 19) Negative INFLUENZA A Negative INFLUENZA B Negative RSV PCR Negative Normal [facility] Comment on above: Performed By: #### M 100.678 ####[facility] [address] [place], [place], [address] MCV (RBC) [Entitic vol]Order ed By: ED PROVIDER on 07-13-2024 MCV (mean corpuscular volume) determination 97.7 fL 81-99 [facility] MCV (mean corpuscular volume ) determinationOrdered By: ED PROVIDER on 07-13-2024 MCV (RBC) [Entitic vol] 97.7 fL 81-99 [facility] Mean corpuscular hemoglobin (MCH) determinationOrdered By: ED PROVIDER on 07-13-2024 MCH (RBC) [Entitic mass] 28.3 pg 27.0-32.0 [facility] Mean corpuscular hemoglobin (MCH) determination 28.3 pg 27.0-32.0 [facility] Mean corpuscular hemoglobin concentration (MCHC) determinationOrdered By: ED PROVIDER on 07-13-2024 MCHC (RBC) [Mass/Vol] 29.0 g/dL Low 32-36 [facility] Mean corpuscular hemoglobin concentration (MCHC) determination 29.0 g/dL Low 32-36 [facility] Mean platelet volume determi nationOrdered By: ED PROVIDER on 07-13-2024 Platelet mean volume (Bld) [Entitic vol] 9.1 fL 6.2-12.0 [facility] Mean platelet volume determination 9.1 fl 6.2-12.0 [facility] Microscopic analysis of urin e for red blood cells (RBC)Ordered By: Kendall Dsouza on 07-13-2024 Urine RBC 0-5 SEEN /hpf 0-5 [facility] Microscopic analysis of urine for red blood cells (RBC) 0-5 SEEN /hpf 5-10 [facility] Monocyte percentageOrdered B y: ED PROVIDER on 07-13-2024 Monocytes/100 WBC (Bld) 9.3 % 0-10 [facility] Monocyte percentage 9.3 % 0-10 [facility] Mucus LM Ql (Urine sed)Order ed By: Kendall Dsouza on 07-13-2024 Mucus Ql (Urine sed) 1+ /hpf [facility] Mucus detection in urine sediment by light microscopy 1+ /hpf [facility] Neutrophil percentageOrdered By: ED PROVIDER on 07-13-2024 Neutrophils/100 WBC (Bld) 66.2 % 47-70 [facility] Neutrophil percentage 66.2 % 47-70 [facility] Nitrite Test strip Ql (U)Ord ered By: Kendall Dsouza on 07-13-2024 Nitrite Ql (U) Negative Negative [facility] Nucleated red blood cell per centageOrdered By: ED PROVIDER on 07-13-2024 Nucleated RBC/100 WBC (Bld) [Ratio] 0 % 0-5 [facility] Nucleated red blood cell percentage 0 % 0-5 [facility] Platelet countOrdered By: ED PROVIDER on 07-13-2024 Platelets (Bld) [#/Vol] 215 10*3/uL 150-450 [facility] Platelet count 215 K/mm3 150-450 [facility] Potassium measurementOrdered By: ED PROVIDER on 07-13-2024 Potassium [Moles/Vol] 4.4 mmol/L 3.5-5.1 [facility] Potassium measurement 4.4 mmol/L 3.5-5.1 [facility] Protein Test strip Ql (U)Ord ered By: Kendall Dsouza on 07-13-2024 Protein Ql (U) 30 mg/dl High Negative [facility] Urine protein assay by test strip, semi-quantitative 30 mg/dl High Negative [facility] RBC Auto (Bld) [#/Vol]Ordere d By: ED PROVIDER on 07-13-2024 RBC (Bld) [#/Vol] 3.53 10*6/uL Low 4.2-5.4 [facility] Automated blood erythrocyte count 3.53 M/mm3 Low 4.2-5.4 [facility] Serum anion gap measurementO rdered By: ED PROVIDER on 07-13-2024 Anion gap [Moles/Vol] 6 mmol/L 5-15 [facility] Serum anion gap measurement 6 5-15 [facility] Serum or plasma calcium marisela urement (mass/volume)Ordered By: ED PROVIDER on 07-13-2024 Calcium [Mass/Vol] 9.2 mg/dL 8.5-10.1 [facility] Serum or plasma creatinine m easurement (mass/volume)Ordered By: ED PROVIDER on 07-13-2024 Creatinine [Mass/Vol] 0.90 mg/dL 0.55-1.02 [facility] Comment on above: The validity of the calculated GFR & GFRAA in patients over 70 years has not been determined. Clinical correlation is essential. Serum or plasma urea nitroge n measurement (mass/volume)Ordered By: ED PROVIDER on 07-13-2024 Urea nitrogen [Mass/Vol] 26 mg/dL High 12-19 [facility] Sodium levelOrdered By: ED P LIDA on 07-13-2024 Sodium [Moles/Vol] 138 mmol/L 136-145 [facility] Sodium level 138 mmol/L 136-145 [facility] Specific gravity (U) [Rel de nsity]Ordered By: Kendall Dsouza on 07-13-2024 Urine specific gravity measurement 1.020 1.002-1.030 [facility] Squamous epithelial cells de tection in urine sediment by light microscopyOrdered By: Kendall Dsouza on 07-13-2024 Epithelial cells.squamous LM Ql (Urine sed) 0-5 SEEN /hpf 5-10 [facility] Urea nitrogen [Mass/Vol]Orde red By: ED PROVIDER on 07-13-2024 Serum or plasma urea nitrogen measurement (mass/volume) 26 mg/dL High 12-19 [facility] Urinalysis, Completeon 07-13 Mucus Ql (Urine sed) 1+ /hpf Normal [facility] Comment on above: Order Comment: GULSHAN CTOR TO SPECIFY Performed By: #### L 400.0001 ####[facility] [address] [place], [place], [address] WBC 5-10 SEEN Normal 0-5 [facility] Comment on above: Order Comment: GULSHAN CTOR TO SPECIFY Performed By: #### L 400.0001 ####[facility] [address] [place], [address] EPI,SQUAMOUS 0-5 SEEN Normal 5-10 [facility] Comment on above: Order Comment: COLLE CTOR TO SPECIFY Performed By: #### L 400.0001 ####[facility] [address] [place], [address] RBC 0-5 SEEN Normal 0-5 [facility] Comment on above: Order Comment: GULSHAN CTOR TO SPECIFY Performed By: #### L 400.0001 ####[facility] [address] [place], [address] BACTERIA 0 SEEN Normal None Seen [facility] Comment on above: Order Comment: GULSHAN CTOR TO SPECIFY Performed By: #### L 400.0001 ####[facility] [address] [place], [place], [address] Urine blood detectionOrdered By: Kendall Dsouza on 07-13-2024 Urine Occult Blood 10 /ul High Negative [facility] Urine blood detection 10 /ul High Negative [facility] Urine clarityOrdered By: Avtar Dsouza on 07-13-2024 Clarity (U) Clear Clear [facility] Urine color determinationOrd ered By: Kendall Dsouza on 07-13-2024 Color (U) Yellow Yellow [facility] Urine glucose detectionOrder ed By: Kendall Dsouza on 07-13-2024 Glucose Ql (U) 50 mg/dl High Normal [facility] Urine leukocyte esterase det ection by dipstickOrdered By: Kendall Dsouza on 07-13-2024 Leukocyte esterase Test strip Ql (U) 25 /ul High Negative [facility] Urine pHOrdered By: Kendall Schwartz ght on 07-13-2024 pH (U) 6.0 [pH] 5.0 - 8.0 [facility] Urine sediment bacteria coun t by microscopy (number/high power field)Ordered By: Kendall Dsouza on 07-13-2024 Bacteria LM.HPF (Urine sed) [#/Area] 0 /[HPF] None Seen [facility] Urine specific gravity measu rementOrdered By: Kendall Dsouza on 07-13-2024 Specific gravity (U) [Rel density] 1.020 1.002-1.030 [facility] Urine total bilirubin detect ion by test stripOrdered By: Kendall Dsouza on 07-13-2024 Urine total bilirubin detection by test strip Negative Negative [facility] Urine urobilinogen measureme ntOrdered By: Kendall Dsouza on 07-13-2024 Urobilinogen Ql (U) 1 mg/dl High Normal [facility] Urobilinogen Ql (U)Ordered B y: Kendall Dsouza on 07-13-2024 Urobilinogen (U) [Mass/Vol] 1 mg/dL High Normal [facility] Urine urobilinogen measurement 1 mg/dl High Normal [facility] White blood cell (WBC) count Ordered By: ED PROVIDER on 07-13-2024 WBC (Bld) [#/Vol] 4.3 10*3/uL Low 4.4-11.0 [facility] White blood cell (WBC) count 4.3 K/mm3 Low 4.4-11.0 [facility] White blood cell countOrdere d By: Kendall Dsouza on 07-13-2024 Urine WBC 5-10 SEEN /hpf 0-5 [facility] White blood cell count 5-10 SEEN /hpf 0-5 [facility] White blood cell count 5-10 SEEN /hpf 0-5 [facility] pH (U)Ordered By: Kendall pelletier on 07-13-2024 Urine pH 6.0 5.0 - 8.0 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 Normal [facility] 36on 11-14-2023 36 Rx sent, no refills, she is past due for her 6-month follow-up appointment [facility] 36 Rx sent, no refills, she is past due for her 6-month follow-up appointment [place] [id number] Prescription Request : Last medication check: 02/15/23 Last physical exam: none Next scheduled appointment: none Last date of refill on this medication 05/07/23 and 06/28/23 [place] [id number] Prescription Request : Last medication check: 02/15/23 Last physical exam: none Next scheduled appointment: none Last date of refill on this medication 10/18/[address] [facility] 36on 10-19-2023 36 Noted. Thank you. [facility] 36 She does not see our office anymore, found a new PCP. Called her and notified her to update Emm[place]. [facility] 36on 10-18-2023 36 Rx sent with no refi lls. Due for physical and fasting blood work. Please schedule. [facility] 36 Prescription Request : Last medication check: 02/15/23 Last physical exam: 06/07/22 Next scheduled appointment: none Last date of refill on this medication 06/05/[address] [facility] 36on 08-20-2023 36 BRANDON BEAN MD did surgery will follow up with him. [facility] 36on 08-18-2023 36 Name of caller requesting page: [place] Phone number of caller: [phone] [facility] Reason for page: N/A Provider paged: Dr. Sanchez Practice name of paged provider: [facility] Physician Orthopedics - Sports Medicine Page placed to #: N/A Time page was sent or provider contacted: 9:12PM Method of contact: Secure Chat Page content: Please call Asia she is calling on behalf of Dr. Jackson Gordillo for patient Alfie Hogan 1960. Please call [place] at [phone]. [facility] Laboratory - Drug toxicology Ordered By: Killian Pozo on 08-17-2023 Amphetamines Ql (U) Negative <1000 ng/mL [facility] Benzodiazepines Ql (U) Positive < 200 ng/mL [facility] Cannabinoids Screen Ql (U) Positive < 50 ng/mL [facility] Cocaine Ql (U) Negative < 300 ng/mL [facility] Opiates Ql (U) Positive < 300 ng/mL [facility] No Panel InformationOrdered By: Killian Pozo on 08-17-2023 MDMA (Ecstasy) Screen Negative < 500 ng/mL [facility] Urine Barbiturates Screen Negative < 200 ng/mL [facility] Urine Drug Screen Comment [facility] Comment on above: CONFIRMATORY TESTING FOR [...] Methadone Screen Negative < 300 ng/mL [facility] Urine phencyclidine (PCP) de tectionOrdered By: Killian Pozo on 08-17-2023 Phencyclidine Ql (U) Negative < 25 ng/mL [facility] CARECOORDon 08-15-2023 [facility] Patient Choice Patient Name: ALFIE HOGAN Date of : [address] [facility] Absolute lymphocyte countOrd ered By: Killian Pozo on 08-14-2023 Lymphocytes Auto (Unsp spec) [#/Vol] 0.57 10*3/uL 0.83-4.51 [facility] Automated lymphocyte count a s percentage of total leukocytesOrdered By: Killian Pozo on 08-14-2023 Lymphocytes/100 WBC Auto (Unsp spec) 12.8 % 19-41 [facility] Basophil percentageOrdered B y: Killian Pozo on 08-14-2023 Basophils/100 WBC (Bld) 0.2 % 0-1 [facility] Bilirubin [Mass/Vol] 1.00 mg/dL 0.20-1.00 [facility] Comment on above: For patients on eltr ombopag therapy, use of Dimension Collins TBIL is not recommended. Chloride [Moles/Vol] 104 mmol/L 98-107 [facility] Cholesterol [Mass/Vol] 76 mg/dL <200 [facility] Comment on above: <200 mg/dL Desirable 200-240 mg/dL Borderline >240 mg/dL High Risk Eosinophils/100 WBC (Bld) 2.0 % 0-5 [facility] Glucose [Mass/Vol] 100 mg/dL 74-106 [facility] Comment on above: Fasting Glucose resu lt from 100 to 125 mg/dL suggests IMPAIRED HOMEOSTASIS per A.D.A. criteria. Hemoglobin (Bld) [Mass/Vol] 8.8 g/dL 12.0-15.0 [facility] Monocytes/100 WBC (Bld) 9.9 % 0-10 [facility] Neutrophils (Bld) [#/Vol] 3.3 10*3/uL 2.0-7.7 [facility] Neutrophils/100 WBC (Bld) 74.9 % 47-70 [facility] Potassium [Moles/Vol] 4.0 mmol/L 3.5-5.1 [facility] Protein [Mass/Vol] 5.2 g/dL 6.4-8.2 [facility] Sodium [Moles/Vol] 137 mmol/L 136-145 [facility] Triglyceride [Mass/Vol] 154 mg/dL <199 [facility] Comment on above: The drugs N-Acetylcy steine and Metamizole may falsely depress this assay.Serum Triglycerides Reference Interval Normal <150 mg/dL Borderline high 150 - 199 mg/dL High 200 - 499 mg/dL Very High > or = 500 mg/dL WBC (Bld) [#/Vol] 4.4 10*3/uL 4.4-11.0 [facility] Determination of erythrocyte mean corpuscular volume (MCV)Ordered By: Killian Pozo on 08-14-2023 MCV (RBC) [Entitic vol] 90.5 fL 81-99 [facility] Erythrocyte distribution wid th ratioOrdered By: [facility] on 08-14-2023 Erythrocyte distribution width (RBC) [Ratio] 15.6 % 11.6-14.6 [facility] Erythrocyte distribution wid th standard deviationOrdered By: [facility] on 08-14-2023 Erythrocyte distribution width (RBC) [Entitic vol] 51.6 fL 35.1-43.9 [facility] Hematocrit Auto (Bld) [Volum e fraction]Ordered By: [facility] on 08-14-2023 Hematocrit (Bld) [Volume fraction] 28.6 % 37-47 [facility] Immature granulocytes/100 WB C Auto (Bld)Ordered By: Killian Pozo on 08-14-2023 Immature granulocytes/100 WBC (Bld) 0.200 % 0.0-0.9 [facility] Comment on above: IG% - Immature Granu locytes (promyelocytes, myelocytes and metamyelocytes) > 1% indicates that a LEFT SHIFT is Present. Laboratory - Chemistry and C hemistry - challengeOrdered By: Killian Pozo on 08-14-2023 Albumin/Globulin [Mass ratio] 0.9 {ratio} 0.9-2.4 [facility] ALP [Catalytic activity/Vol] 132 U/L 45-117 [facility] ALT [Catalytic activity/Vol] 10 U/L 13-56 [facility] Cholesterol in HDL [Mass/Vol] 31 mg/dL >40 [facility] Comment on above: The drugs N-Acetylcy steine and Metamizole may falsely depress this assay. Reference Range HDL <40 mg/dL Low HDL Cholesterol HDL >or= 60 mg/dL High HDL Cholesterol Cholesterol in LDL [Mass/Vol] 14 mg/dL 0-130 [facility] CO2 [Moles/Vol] 28.0 mmol/L 21.0-32.0 [facility] Globulin (S) [Mass/Vol] 2.7 g/dL 2.2-4.2 [facility] Urea nitrogen/Creatinine [Mass ratio] 12.2 mg/mg 10-20 [facility] Laboratory - Hematology and Cell countsOrdered By: Killian Pozo on 08-14-2023 MCH (RBC) [Entitic mass] 27.8 pg 27.0-32.0 [facility] MCHC (RBC) [Mass/Vol] 30.8 g/dL 32-36 [facility] Nucleated RBC/100 WBC (Bld) [Ratio] 0 % 0-5 [facility] Platelet mean volume (Bld) [Entitic vol] 10.4 fL 6.2-12.0 [facility] Platelets (Bld) [#/Vol] 134 10*3/uL 150-450 [facility] No Panel InformationOrdered By: Killian Pozo on 03-12-2024 Estimated GFR (MDRD) Amer 57 mL/min >60 [facility] Comment on above: GFR Calc Estimated GFR (MDRD) Non-Af Amer 47 mL/min >60 [facility] Comment on above: Non- GFR Calc Vitamin D 25-Hydroxy 39.1 ng/mL [facility] Comment on above: Vitamin D 25(OH) Sta tus Range Deficiency <20 ng/mL (50nmol/L) Insufficiency 20 - 30 ng/mL (50 - 75 nmol/L) Sufficiency 30 - 100 ng/mL (75 - 250 nmol/L) Toxicity >100 ng/mL (>250 nmol/L) VLDL Cholesterol 31 mg/dL 5-40 [facility] RBC Auto (Bld) [#/Vol]Ordere d By: Killian Pozo on 08-14-2023 RBC (Bld) [#/Vol] 3.16 10*6/uL 4.2-5.4 [facility] Serum or plasma calcium marisela urement (mass/volume)Ordered By: Killian Pozo on 08-14-2023 Calcium [Mass/Vol] 9.0 mg/dL 8.5-10.1 [facility] Serum or plasma creatinine m easurement (mass/volume)Ordered By: Killian Pozo on 08-14-2023 Creatinine [Mass/Vol] 1.23 mg/dL 0.55-1.02 [facility] Comment on above: The validity of the calculated GFR & GFRAA in patients over 70 years has not been determined. Clinical correlation is essential. Serum or plasma urea nitroge n measurement (mass/volume)Ordered By: Killian Pozo on 08-14-2023 Urea nitrogen [Mass/Vol] 15 mg/dL 7-18 [facility] Thin prep Papanicolaou smear with manual screeningOrdered By: Killian Pozo on 08-14-2023 Thin prep Papanicolaou smear with manual screening 2.5 g/dL 3.2-5.0 [facility] Thin prep Papanicolaou smear with manual screening 26 U/L 15-37 [facility] Thin prep Papanicolaou smear with manual screening 5 5-15 [facility] CARECOORDon 08-13-2023 CARECOORD 7000 was entered int o [facility] for the [facility] per TCC request. [facility] CARECOORD Next Site of Care Admission Date: 08/09/2023 07:14 AM Patient Name: ALFIE HOGAN Location: [place] [address] [facility] Date of : 1960 -------- Placement Information -------- Referral Type:Jail/SNF - New Referral ID:[id number] Provider Name:[facility] Address 1:[address] [place] [address] Road Address 2: City:[place] Selection Factors:Patient/Family Choice State:[place] Normal [facility] CARECOORD Transport arranged or 1999 today to transfer pt to [place]. RN, US, TCC, pt and [facility] notified. [facility] CARECOORD Updates placed to [facility] via [facility] per TCC request. Await review and response regarding ability to accept. TCC notified. [facility] IDNon 08-13-2023 IDN Problem: Pain - Adul [...] is maintained or improved Outcome: Progressing Normal [facility] Laboratory - Microbiology an d Antimicrobial susceptibilityOrdered By: Erick Estevez on 08-13-2023 SARS-CoV-2 (COVID-19) Ag IA.rapid Ql (Resp) Negative Negative [facility] Comment on above: A negative result do es not rule out the possibility of SARS-CoV-2 infection. NAAT-based methods should be considered for symptomatic patients presenting greater than seven days after onset of symptoms. Method: Lateral flow immunoassay. Fact sheets for healthcare providers and patients can be found at the following sites: https://www.fda.gov/media/861103/download https://www.fda.gov/media/828306/download No Panel Informationon 08-12 Normal V/Q scan. Report Dictated on Electronically Signed By: Eric Giron MD Electronically Signed Date/Time: 08/13/2023 1:53 PM [employer] Patient Name: ALFIE HUGHES MS : [...] focal consolidation on the comparison chest x-ray. [facility] Eric Giron MD - 08/13/2023 Patient Name: ALFIE HOGAN : 1960 [facility]#: [id number] Exam Date/Time: 08/13/2023 13:06 Procedure: NM LUNG [...] Electronically Signed Date/Time: 08/13/2023 1:53 PM EDT [facility] Radiology Study observation (narrative) [facility] No evidence of deep vein and [...] Vein: Patent, compressible. Peroneal Vein: Patent, compressible. A And P Technician Details A torres scale, color Doppler imaging [...] Panel InformationOrdered By: Eric Giron on 08-13-2023 [facility] Progress Noteon 08-13-2023 Progress Note Transport here to [place] pt. Report given to medic. All belongings in room sent with pt including CPAP. No further questions at this time. Normal [facility] Progress Note Report called to Remberto prabhu Goetz. SIMON Bolton took report with no further questions at this time. 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 Normal [facility] Progress Note Subjective Patient ID: Kayce Hogan is a 62 y.o. female who presents for No chief complaint on file. Patient is s/p OR on 08/[address] Baen. Psychiatry was consulted due to patient's possible [...] disease (COVID-19) Alcohol dependence with uncomplicated withdrawal ([facility]) 07/07/2020 Allergic Anxiety Arthritis Asthma Bronchiectasis ([facility]) COPD exacerbation ([facility]) 10/24/2019 Depression Diaphragm paralysis Diastolic heart failure ([facility]) Dizziness 11/09/2020 Dvt femoral (deep venous thrombosis) ([facility]) right...was on blood thinners after broken ankle have been off thinners for a few years Fall 11/21/2020 GERD (gastroesophageal reflux disease) Hypertension Kidney disease Kidney failure 01/09/2019 Kidney stone Obesity Oxygen decrease Currently on Home oxygen, uses with exertion Pulmonary hypertension (HCC) Pulmonary hypertension ([facility]) Weakness 11/21/2020 Social History Socioeconomic History Marital [...] g/dL He (more content not included)... Normal [facility] Progress Note Alfie Hogan is a 62 y.o.female No chief complaint on file. Patient seen and examined, history of dysthymia, back pain. S/P OR, has been confused and anxious since surgery. 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 Patient denies SI, is angry at perceived [...] Dizziness 11/09/2020 Dvt femoral (deep venous thrombosis) ([facility]) right...was on blood thinners after broken ankle [...] baseline. Ps (more content not included)... Normal [facility] SARS-COV-2 ANTIGENon 024 SARS-COV-2 ANTIGEN SARS-COV-2 ANTIGEN -BINAX Reference Negative Negative A negative result does not rule out the possibility of SARS-CoV-2 infection. NAAT-based methods should be considered for symptomatic patients presenting greater than seven days after onset of symptoms. Method: Lateral flow immunoassay. Fact sheets for healthcare providers and patients can be found at the following sites: https://www.fda.gov/medi a/255976/download https://www.fda.gov/medi a/782857/download Normal [facility] Comment on above: Performed By: #### L [id number] #### Clarifier: RADHA NOGUEIRA ([id number]) [facility] ([facility]) [address] [place] [address] SARS-CoV-2 (COVID-19) Ag IA. rapid Ql (Resp)Ordered By: Erick Estevez on 08-13-2023 Interpretation and review of laboratory results Normal [facility] XR CHEST 1 VIEWon 08-13-2023 XR CHEST [...] Electronically Signed Date/Time: 08/13/2023 1:[address] [facility] XR Chest Single viewon 08-12 Mild streaky atelectasis within the lung bases. No focal consolidation is seen. Report Dictated on Electronically Signed By: Eric Giron MD Electronically Signed Date/Time: 08/13/2023 1:53 PM EDT [facility] [employer] Patient Name: ALFIE HUGHES MS : [...] spine fusion hardware is not fully imaged. [facility] Eric Giron MD - 08/13/2023 Patient [...] Electronically Signed Date/Time: 08/13/2023 1:53 PM EDT [facility] Radiology Study observation (narrative) [facility] BASIC METABOLIC PANELon 03- Anion gap [Moles/Vol] 5 mmol/L Normal 3-13 [facility] Comment on above: Performed By: #### L [id number] #### Clarifier: RADHA NOGUEIRA ([id number]) [address] Calcium [Mass/Vol] 8.2 mg/dL Low 8.4-10.4 [facility] Comment on above: Performed By: #### L [id number] #### Clarifier: RADHA [id number]) [facility]) [address] [place] [address] Chloride [Moles/Vol] 106 mmol/L Normal 98-107 [facility] Comment on above: Performed By: #### L [id number] #### Clarifier: RADHA [id number]) [facility]) [address] [place] [address] CO2 [Moles/Vol] 25 mmol/L Normal 22-30 [facility] Comment on above: Performed By: #### L [id number] #### Clarifier: RADHA [id number]) [facility]) [address] [place] [address] [place] Creatinine [Mass/Vol] 1.12 mg/dL High 0.52-1.04 [facility] Comment on above: Performed By: #### L [id number] #### Clarifier: RADHA NOGUEIRA ([id number]) [facility] [address] [place] [address] [place] GLOMERULAR FILTRATION RATE ML/MIN/1.73 SQ M.PREDICTED 56.1 mL/min/1.73m*2 Low >60.0 [facility] Comment on above: Result Comment: Calc ulation based on the Chronic Kidney Disease Epidemiology Collaboration (CKD-EPI) equation refit without adjustment for race Performed By: #### L [id number] #### Clarifier: RADHA NOGUEIRA ([id number]) [facility] [address] [place] [address] [place] Glucose [Mass/Vol] 106 mg/dL High 70-100 [facility] Comment on above: Performed By: #### L [id number] #### Clarifier: RADHA NOGUEIRA ([id number]) [facility]) [address] [place] [address] [place] Potassium [Moles/Vol] 3.4 mmol/L Low 3.5-5.1 [facility] Comment on above: Performed By: #### L [id number] #### Clarifier: RADHA NOGUEIRA ([id number]) [facility]) [address] [place] [address] [place] Sodium [Moles/Vol] 135 mmol/L Normal 135-145 [facility] Comment on above: Performed By: #### L [id number] #### Clarifier: RADHA NOGUEIRA ([id number]) [facility] ([facility]) [address] [place] [address] [place] Urea nitrogen [Mass/Vol] 17 mg/dL Normal 7-17 [facility] Comment on above: Performed By: #### L [id number] #### Clarifier: RADHA NOGUEIRA ([id number]) [facility] ([facility]) [address] [place], [place] [id number] [facility] Basic metabolic 1998 panelon 08-12-2023 Anion gap [Moles/Vol] 5 mmol/L 3 - 13 mmol/L [facility] Calcium [Mass/Vol] 8.2 mg/dL Low 8.4 - 10. 4 mg/dL [facility] Chloride [Moles/Vol] 106 mmol/L 98 - 10 7 mmol/L [facility] CO2 [Moles/Vol] 25 mmol/L 22 - 30 mmol/L [facility] Creatinine [Mass/Vol] 1.12 mg/dL High 0.52 - 1.04 mg/dL [facility] GFR/1.73 sq M.predicted MDRD (S/P/Bld) [Vol rate/Area] 56.1 mL/min/{1.73_m2} Low - PINF [facility] Comment on above: Calculation based on the Chronic Kidney Disease Epidemiology Collaboration (CKD-EPI) equation refit without adjustment for race Glucose [Mass/Vol] 106 mg/dL High 70 - 100 mg/dL [facility] Interpretation and review of laboratory results Abnormal [facility] Potassium [Moles/Vol] 3.4 mmol/L Low 3.5 - 5.1 mmol/L [facility] Sodium [Moles/Vol] 135 mmol/L 135 - 145 mmol/L [facility] Urea nitrogen [Mass/Vol] 17 mg/dL 7 - 17 mg/dL [facility] CARECOORDon 08-12-2023 [facility] TCC tasked to follow over the weekend. Auth remains pending. TCC to continue to follow and assist prn. Normal [facility] CBC W Auto Differential pane l (Bld)Ordered By: Jatinder Perez on 08-12-2023 Basophils (Bld) [#/Vol] 0.0 10*3/uL 0.0 - 0.2 10*3/uL [facility] Basophils/100 WBC (Bld) 0.3 % 0.0 - 2.0 % [facility] Eosinophils (Bld) [#/Vol] 0.1 10*3/uL 0.0 - 0.5 10*3/uL [facility] Eosinophils/100 WBC (Bld) 1.8 % 0.0 - 6.0 % [facility] Erythrocyte distribution width (RBC) [Ratio] 16.0 % High 11.5 - 15.0 % [facility] Hematocrit (Bld) [Volume fraction] 24.9 % Low 35.0 - 47.0 % [facility] Hemoglobin (Bld) [Mass/Vol] 7.8 g/dL Low 11.7 - 16.0 g/dL [facility] Immature granulocytes (Bld) [#/Vol] 0.0 10*3/uL NINF - 0.1 10*3/uL [facility] Immature granulocytes/100 WBC (Bld) 0.6 % 0.0 - 2.0 % [facility] Interpretation and review of laboratory results Abnormal [facility] IPF [address] [facility] Lymphocytes (Bld) [#/Vol] 0.4 10*3/uL Low 1.0 - 4.3 10*3/uL [facility] Lymphocytes/100 WBC (Bld) 12.8 % Low 15.0 - 45.0 % [facility] MCH (RBC) [Entitic mass] 27.8 pg 26.0 - 34.[address] [facility] MCHC (RBC) [Mass/Vol] 31.3 % 30.5 - 36.0 % [facility] MCV (RBC) [Entitic vol] 88.6 fL 77.0 - 99.[address] [facility] Monocytes (Bld) [#/Vol] 0.3 10*3/uL 0.0 - 0.9 10*3/uL [facility] Monocytes/100 WBC (Bld) 8.7 % 5.0 - 13.0 % [facility] Neutrophils (Bld) [#/Vol] 2.5 10*3/uL 1.8 - 7.5 10*3/uL [facility] Neutrophils/100 WBC (Bld) 75.8 % 38.0 - 82.0 % [facility] Nucleated RBC/100 WBC (Bld) [Ratio] 0.0 % [facility] Platelet mean volume (Bld) [Entitic vol] 10.4 fL 9.0 - 12.[address] [facility] Platelets (Bld) [#/Vol] 87 10*3/uL Low 140 - 440 10*3/uL [facility] RBC (Bld) [#/Vol] 2.81 10*6/uL Low 3.80 - 5.2 0 10*6/uL [facility] WBC (Bld) [#/Vol] 3.4 10*3/uL Low 3.6 - 10.7 10*3/uL [facility] CBC WITH AUTO DIFFERENTIALon 08-12-2023 Basophils (Bld) [#/Vol] 0.0 10*3/uL Normal 0.0-0.2 [facility] Comment on above: Performed By: #### L [id number] #### Clarifier: RADHA NOGUEIRA ([id number]) [facility] ([facility]) [address] [place] [address] Basophils/100 WBC (Bld) 0.3 % Normal 0.0-2.0 [facility] Comment on above: Performed By: #### L [id number] #### Clarifier: RADHA NOGUEIRA ([id number]) [facility]) [address] [place] [address] [place] Eosinophils (Bld) [#/Vol] 0.1 10*3/uL Normal 0.0-0.5 [facility] Comment on above: Performed By: #### L [id number] #### Clarifier: RADHA NOGUEIRA ([id number]) [facility]) [address] [place] [address] Eosinophils/100 WBC (Bld) 1.8 % Normal 0.0-6.0 [facility] Comment on above: Performed By: #### L [id number] #### Clarifier: RADHA NOGUEIRA ([id number]) [facility]) [address] [place] [address] Erythrocyte distribution width (RBC) [Ratio] 16.0 % High 11.5-15.0 [facility] Comment on above: Performed By: #### L [id number] #### Clarifier: RADHA NOGUEIRA ([id number]) [facility]) [address] [place] [address] Hematocrit (Bld) [Volume fraction] 24.9 % Low 35.0-47.0 [facility] Comment on above: Performed By: #### L [id number] #### Clarifier: RADHA NOGUEIRA ([id number]) [facility]) [address] [place] [address] Hemoglobin (Bld) [Mass/Vol] 7.8 g/dL Low 11.7-16.0 [facility] Comment on above: Performed By: #### L [id number] #### Clarifier: RADHA NOGUEIRA ([id number]) [facility]) [address] [place] [address] IMMATURE GRANS % 0.6 % Normal 0.0-2.0 [facility] Comment on above: Performed By: #### L [id number] #### Clarifier: RADHA NOGUEIRA ([id number]) [facility]) [address] [place] [address] IMMATURE GRANS ABSOLUTE 0.0 10*3/uL Normal <0.1 [facility] Comment on above: Performed By: #### L [id number] #### Clarifier: RADHA NOGUEIRA ([id number]) [facility]) [address] [place] [address] [place] IPF 2 Normal [facility] Comment on above: Performed By: #### L [id number] #### Clarifier: RADHA NOGUEIRA ([id number]) [facility]) [address] [place] [address] Lymphocytes (Bld) [#/Vol] 0.4 10*3/uL Low 1.0-4.3 [facility] Comment on above: Performed By: #### L [id number] #### Clarifier: RADHA NOGUEIRA ([id number]) [facility]) [address] [place] [address] Lymphocytes/100 WBC (Bld) 12.8 % Low 15.0-45.0 [facility] Comment on above: Performed By: #### L [id number] #### Clarifier: RADHA NOGUEIRA ([id number]) [facility]) [address] [place] [address] MCH (RBC) [Entitic mass] 27.8 pg Normal 26.0-34.0 [facility] Comment on above: Performed By: #### L [id number] #### Clarifier: RADHA NOGUEIRA ([id number]) [facility] ([facility]) [address] [place] [address] MCHC 31.3 % Normal 30.5-36.0 [facility] Comment on above: Performed By: #### L [id number] #### Clarifier: RADHA NOGUEIRA ([id number]) [facility] ([facility]) [address] [place] [address] MCV (RBC) [Entitic vol] 88.6 fL Normal 77.0-99.0 [facility] Comment on above: Performed By: #### L [id number] #### Clarifier: RADHA NOGUEIRA ([id number]) [facility]) [address] [place] [address] Monocytes (Bld) [#/Vol] 0.3 10*3/uL Normal 0.0-0.9 [facility] Comment on above: Performed By: #### L [id number] #### Clarifier: RADHA NOGUEIRA ([id number]) [facility]) [address] [place] [address] Monocytes/100 WBC (Bld) 8.7 % Normal 5.0-13.0 [facility] Comment on above: Performed By: #### L [id number] #### Clarifier: RADHA NOGUEIRA ([id number]) [facility] ([facility]) [address] [place] [address] NEUTROPHILS ABSOLUTE 2.5 10*3/uL Normal 1.8-7.5 [facility] Comment on above: Performed By: #### L [id number] #### Clarifier: RADHA NOGUEIRA ([id number]) [facility]) [address] [place] [address] Neutrophils/100 WBC (Bld) 75.8 % Normal 38.0-82.0 [facility] Comment on above: Performed By: #### L [id number] #### Clarifier: RADHA NOGUEIRA ([id number]) [facility] ([facility]) [address] [place] [address] NRBC 0.0 /100 WBCs Normal 0.0-2.0 [facility] Comment on above: Performed By: #### L [id number] #### Clarifier: RADHA NOGUEIRA ([id number]) [facility] ([facility]) [address] [place] [address] Platelet mean volume (Bld) [Entitic vol] 10.4 fL Normal 9.0-12.7 [facility] Comment on above: Performed By: #### L [id number] #### Clarifier: RADHA NOGUEIRA ([id number]) [facility] ([facility]) [address] [place] [address] Platelets (Bld) [#/Vol] 87 10*3/uL Low 140-440 [facility] Comment on above: Performed By: #### L [id number] #### Clarifier: RADHA NOGUEIRA ([id number]) [facility] ([facility]) [address] [place] [address] RBC (Bld) [#/Vol] 2.81 10*6/uL Low 3.80-5.20 [facility] Comment on above: Performed By: #### L [id number] #### Clarifier: RADHA NOGUEIRA ([id number]) [facility] ([facility]) [address] [place] [address] WBC (Bld) [#/Vol] 3.4 10*3/uL Low 3.6-10.7 [facility] Comment on above: Performed By: #### L [id number] #### Clarifier: RADHA NOGUEIRA ([id number]) [facility] ([facility]) [address] [place] [address] Free T4 [Mass/Vol]on 024 Free T4 Dialysis [Mass/Vol] 1.15 ng/dL 0.78 - 2.19 ng/dL [facility] Interpretation and review of laboratory results Normal [facility] IDNon 08-12-2023 IDN Problem: Pain - Adul t Goal: Verbalizes/displays adequate comfort level or baseline comfort level Outcome: Progressing Problem: Chronic Conditions and Co-morbidities Goal: Patient's chronic conditions and co-morbidity symptoms are monitored and maintained or improved Outcome: Progressing Normal [facility] Laboratory - Chemistry and C hemistry - challengeon 08-12-2023 Magnesium [Mass/Vol] 2.1 mg/dL 1.6 - 2 .3 mg/dL [facility] MAGNESIUMon 08-12-2023 Magnesium [Mass/Vol] 2.1 mg/dL Normal 1.6-2.3 [facility] Comment on above: Performed By: #### L [id number], [id number] ####Clarifier: RADHA NOGUEIRA ([id number])[facility] ([address] Magnesium [Mass/Vol]on 08-11 Interpretation and review of laboratory results Normal [facility] Progress Noteon 08-12-2023 Progress Note PHYSICAL THERAPY [facility] Treatment Note Name/MRN: Kayce Hogan ([id number]) Date of : 1960 Age: 62 y.o. [facility] A Discharge Recommendation: Long-Term Facility Equipment Needed: No Prior Level of [...] Transfers Patient (more content not included)... Normal [facility] BASIC METABOLIC PANELon 03-0 Anion gap [Moles/Vol] 4 mmol/L Normal 3-13 [facility] Comment on above: Performed By: #### L AB129, LAB15, LAB67 ####Clarifier: RADHA NOGUEIRA ([id number])[address] Calcium [Mass/Vol] 8.4 mg/dL Normal 8.4-10.4 [facility] Comment on above: Performed By: #### L AB129, LAB15, LAB67 ####Clarifier: RADHA NOGUEIRA ([id number])[address] Chloride [Moles/Vol] 102 mmol/L Normal 98-107 [facility] Comment on above: Performed By: #### L AB129, LAB15, LAB67 ####Clarifier: RADHA [id number])[facility])[address] [place] [address] CO2 [Moles/Vol] 27 mmol/L Normal 22-30 [facility] Comment on above: Performed By: #### L AB129, LAB15, LAB67 ####Clarifier: RADHA NOGUEIRA ([id number])[facility])[address] [place] [address] Creatinine [Mass/Vol] 1.20 mg/dL High 0.52-1.04 [facility] Comment on above: Performed By: #### L AB129, LAB15, LAB67 ####Clarifier: RADHA NOGUEIRA ([id number])[facility])[address] [place] [address] GLOMERULAR FILTRATION RATE ML/MIN/1.73 SQ M.PREDICTED 51.6 mL/min/1.73m*2 Low >60.0 [facility] Comment on above: Result Comment: Calc ulation based on the Chronic Kidney Disease Epidemiology Collaboration (CKD-EPI) equation refit without adjustment for race Performed By: #### L AB129, LAB15, LAB67 ####Clarifier: RADHA NOGUEIRA ([id number])[facility] ([facility])[address] [place] [address] Glucose [Mass/Vol] 114 mg/dL High 70-100 [facility] Comment on above: Performed By: #### L AB129, LAB15, LAB67 ####Clarifier: RADHA NOGUEIRA ([id number])[facility])[address] [place] [address] [place] Potassium [Moles/Vol] 3.3 mmol/L Low 3.5-5.1 [facility] Comment on above: Performed By: #### L AB129, LAB15, LAB67 ####Clarifier: RADHA NOGUEIRA ([id number])[facility])[address] [place] [address] Sodium [Moles/Vol] 133 mmol/L Low 135-145 [facility] Comment on above: Performed By: #### L AB129, LAB15, LAB67 ####Clarifier: RADHA NOGUEIRA ([id number])[facility] [place] [address] Urea nitrogen [Mass/Vol] 21 mg/dL High 7-17 [facility] Comment on above: Performed By: #### L AB129, LAB15, LAB67 ####Clarifier: RADHA NOGUEIRA ([id number])[facility] ([facility])[address] [place] [address] Basic metabolic 1998 panelon 08-11-2023 Anion gap [Moles/Vol] 4 mmol/L 3 - 13 mmol/L [facility] Calcium [Mass/Vol] 8.4 mg/dL 8.4 - 10. 4 mg/dL [facility] Chloride [Moles/Vol] 102 mmol/L 98 - 10 7 mmol/L [facility] CO2 [Moles/Vol] 27 mmol/L 22 - 30 mmol/L [facility] Creatinine [Mass/Vol] 1.20 mg/dL High 0.52 - 1.04 mg/dL [facility] GFR/1.73 sq M.predicted MDRD (S/P/Bld) [Vol rate/Area] 51.6 mL/min/{1.73_m2} Low - PINF [facility] Comment on above: Calculation based on the Chronic Kidney Disease Epidemiology Collaboration (CKD-EPI) equation refit without adjustment for race Glucose [Mass/Vol] 114 mg/dL High 70 - 100 mg/dL [facility] Interpretation and review of laboratory results Abnormal [facility] Potassium [Moles/Vol] 3.3 mmol/L Low 3.5 - 5.1 mmol/L [facility] Sodium [Moles/Vol] 133 mmol/L Low 135 - 145 mmol/L [facility] Urea nitrogen [Mass/Vol] 21 mg/dL High 7 - 17 mg/dL [facility] CARECOORDon 08-11-2023 [facility] T[facility] tasked to follow this patient over the weekend. Auth started at [facility]. Message sent to facility regarding auth status. Awaiting response. TCC to continue to follow. Normal [facility] CBC W Auto Differential pane l (Bld)Ordered [...] (Bld) 0.5 % 0.0 - 2.0 % [facility] Interpretation and review of laboratory results Abnormal [facility] Lymphocytes (Bld) [#/Vol] 0.5 10*3/uL Low 1.0 - 4.3 10*3/uL [facility] Lymphocytes/100 WBC (Bld) 11.3 % Low 15.0 - 45.0 % [facility] MCH (RBC) [Entitic mass] 27.3 pg [...] (Bld) 78.9 % 38.0 - 82.0 % [facility] Nucleated RBC/100 WBC (Bld) [Ratio] 0.0 % [facility] Platelet mean volume (Bld) [Entitic vol] 10.8 fL 9.0 - 12.[address] [facility] Platelets (Bld) [#/Vol] 116 10*3/uL Low 140 - 440 10*3/uL [facility] RBC (Bld) [#/Vol] 2.38 10*6/uL Low 3.80 - 5.2 0 10*6/uL [facility] WBC (Bld) [#/Vol] 4.0 10*3/uL 3.6 - 10.7 10*3/uL [facility] CBC WITH AUTO DIFFERENTIALon 08-11-2023 Basophils (Bld) [#/Vol] 0.0 10*3/uL Normal 0.0-0.2 [facility] Comment on above: Performed By: #### L [id number] #### Clarifier: RADHA NOGUEIRA ([id number]) [facility] ([facility]) [address] [place] [address] Basophils/100 WBC (Bld) 0.0 % Normal 0.0-2.0 [facility] Comment on above: Performed By: #### L [id number] #### Clarifier: RADHA NOGUEIRA ([id number]) [facility] ([facility]) [address] [place] [address] Eosinophils (Bld) [#/Vol] 0.0 10*3/uL Normal 0.0-0.5 [facility] Comment on above: Performed By: #### L [id number] #### Clarifier: RADHA NOGUEIRA ([id number]) [facility] ([facility]) [address] [place] [address] Eosinophils/100 WBC (Bld) 0.0 % Normal 0.0-6.0 [facility] Comment on above: Performed By: #### L [id number] #### Clarifier: RADHA NOGUEIRA ([id number]) [facility] ([facility]) [address] [place] [address] [place] Erythrocyte distribution width (RBC) [Ratio] 14.8 % Normal 11.5-15.[address] [facility] Comment on above: Performed By: #### L [id number] #### Clarifier: RADHA NOGUEIRA ([id number]) [facility]) [address] [place] [address] Hematocrit (Bld) [Volume fraction] 21.2 % Low 35.0-47.0 [facility] Comment on above: Performed By: #### L [id number] #### Clarifier: RADHA NOGUEIRA ([id number]) [facility]) [address] [place] [address] Hemoglobin (Bld) [Mass/Vol] 6.5 g/dL Critically low 11.7-16.[address] [facility] Comment on above: Performed By: #### L [id number] #### Clarifier: RADHA NOGUEIRA ([id number]) [facility]) [address] [place] [address] IMMATURE GRANS % 0.5 % Normal 0.0-2.[address] [facility] Comment on above: Performed By: #### L [id number] #### Clarifier: RADHA NOGUEIRA ([id number]) [facility]) [address] [place] [address] IMMATURE GRANS ABSOLUTE 0.0 10*3/uL Normal <0.[address] [facility] Comment on above: Performed By: #### L [id number] #### Clarifier: RADHA NOGUEIRA ([id number]) [facility]) [address] [place] [address] [place] Lymphocytes (Bld) [#/Vol] 0.5 10*3/uL Low 1.0-4.3 [facility] Comment on above: Performed By: #### L [id number] #### Clarifier: RADHA NOGUEIRA ([id number]) [facility]) [address] [place] [address] [place] Lymphocytes/100 WBC (Bld) 11.3 % Low 15.0-45.[address] [facility] Comment on above: Performed By: #### L [id number] #### Clarifier: RADHA NOGUEIRA ([id number]) [facility] ([facility]) [address] [place] [address] MCH (RBC) [Entitic mass] 27.3 pg Normal 26.0-34.0 [facility] Comment on above: Performed By: #### L [id number] #### Clarifier: RADHA NOGUEIRA ([id number]) [facility]) [address] [place] [address] MCHC 30.7 % Normal 30.5-36.0 [facility] Comment on above: Performed By: #### L [id number] #### Clarifier: RADHA NOGUEIRA ([id number]) [facility]) [address] [place] [address] MCV (RBC) [Entitic vol] 89.1 fL Normal 77.0-99.0 [facility] Comment on above: Performed By: #### L [id number] #### Clarifier: RADHA NOGUEIRA ([id number]) [facility] ([facility]) [address] [place] [address] Monocytes (Bld) [#/Vol] 0.4 10*3/uL Normal 0.0-0.9 [facility] Comment on above: Performed By: #### L [id number] #### Clarifier: RADHA NOGUEIRA ([id number]) [facility]) [address] [place] [address] Monocytes/100 WBC (Bld) 9.3 % Normal 5.0-13.0 [facility] Comment on above: Performed By: #### L [id number] #### Clarifier: RADHA NOGUEIRA ([id number]) [facility]) [address] [place] [address] NEUTROPHILS ABSOLUTE 3.1 10*3/uL Normal 1.8-7.5 [facility] Comment on above: Performed By: #### L [id number] #### Clarifier: RADHA NOGUEIRA ([id number]) [facility] [address] [place] [address] Neutrophils/100 WBC (Bld) 78.9 % Normal 38.0-82.0 [facility] Comment on above: Performed By: #### L [id number] #### Clarifier: RADHA NOGUEIRA ([id number]) [facility] [address] [place] [address] NRBC 0.0 /100 WBCs Normal 0.0-2.0 [facility] Comment on above: Performed By: #### L [id number] #### Clarifier: RADHA NOGUEIRA ([id number]) [facility] ([facility]) [address] [place] [address] Platelet mean volume (Bld) [Entitic vol] 10.8 fL Normal 9.0-12.7 [facility] Comment on above: Performed By: #### L [id number] #### Clarifier: RADHA NOGUEIRA ([id number]) [facility] [address] [place] [address] Platelets (Bld) [#/Vol] 116 10*3/uL Low 140-440 [facility] Comment on above: Performed By: #### L [id number] #### Clarifier: RADHA NOGUEIRA ([id number]) [facility] [address] [place] [address] RBC (Bld) [#/Vol] 2.38 10*6/uL Low 3.80-5.20 [facility] Comment on above: Performed By: #### L [id number] #### Clarifier: RADHA NOGUEIRA ([id number]) [facility] [address] [place] [address] [place] WBC (Bld) [#/Vol] 4.0 10*3/uL Normal 3.6-10.7 [facility] Comment on above: Performed By: #### L [id number] #### Clarifier: RADHA NOGUEIRA ([id number]) [facility] [address] [place] [address] Cobalamin (Vitamin B12) [Mas s/Vol]on 08-11-2023 Interpretation and review of laboratory results Normal [facility] HEMOGLOBIN AND HEMATOCRIT, B LOODon 08-11-2023 Hematocrit (Bld) [Volume fraction] 24.8 % Low 35.0-47.0 [facility] Comment on above: Order Comment: Recom mend 1 hour post transfusion Performed By: #### L [id number] ####Clarifier: RADHA NOGUEIRA ([id number])[facility])[address] [place] [address] Hemoglobin (Bld) [Mass/Vol] 7.9 g/dL Low 11.7-16.0 [facility] Comment on above: Order Comment: Recom mend 1 hour post transfusion Performed By: #### L [id number] ####Clarifier: RADHA NOGUEIRA ([id number])[facility])[address] [place] [address] Hematocrit (Bld) [Volume fraction] 22.4 % Low 35.0-47.0 [facility] Comment on above: Order Comment: Recom mend 1 hour post transfusion Performed By: #### L [id number] ####Clarifier: RADHA NOGUEIRA ([id number])[facility])[address] [place] [address] Hemoglobin (Bld) [Mass/Vol] 6.9 g/dL Critically low 11.7-16.0 [facility] Comment on above: Order Comment: Recom mend 1 hour post transfusion Performed By: #### L [id number] ####Clarifier: RADHA NOGUEIRA ([id number])[facility])[address] [place] [address] [place] Hemoglobin (Bld) [Mass/Vol]O rdered By: Suzie Santos on 08-11-2023 Hematocrit (Bld) [Volume fraction] 24.8 % Low 35.0 - 47.0 % [facility] Interpretation and review of laboratory results Abnormal [facility] Hemoglobin (Bld) [Mass/Vol]O rdered By: Karla Hogan on 08-11-2023 Hematocrit (Bld) [Volume fraction] 22.4 % Low 35.0 - 47.0 % [facility] Interpretation and review of laboratory results Abnormal [facility] Laboratory - Chemistry and C hemistry - challengeon 08-11-2023 Cobalamin (Vitamin B12) [Mass/Vol] 310 pg/mL 239 - 931 pg/mL [facility] TSH Qn 0.324 m[IU]/L Low [facility] Laboratory - Hematology and Cell countsOrdered By: Suzie Santos on 08-11-2023 Hemoglobin (Bld) [Mass/Vol] 7.9 g/dL Low 11.7 - 16.0 g/dL [facility] Laboratory - Hematology and Cell countsOrdered By: Karla Hogan on 08-11-2023 Hemoglobin (Bld) [Mass/Vol] 6.9 g/dL Critically low 11.7 - 16.0 g/dL [facility] No Panel Informationon 08-10 Blood Expiration Date S [facility] Crossmatch interpretation COMP [facility] Dispense Status Transfused [facility] Product Blood Type 9500 [facility] PRODUCT CODE [id number] [facility] ABO O [facility] Unit Number [id number] [facility] RH Negative [facility] Volume 300 mL [facility] Blood Expiration Date [id number] [facility] Crossmatch interpretation COMP [facility] Dispense Status Transfused [facility] Product Blood Type 600 [facility] PRODUCT CODE [id number] [facility] ABO A [facility] Unit Number [id number] [facility] Unit RH Negative [facility] Unit Volume 300 mL [facility] Progress Noteon 08-11-2023 Progress Note Nutrition rescreen completed. Chart reviewed. Patient to be monitored and followed by the diet data technician. Aliya Hoff, KANE Normal [facility] Progress Note PHYSICAL THERAPY [facility] Name/MRN: Kayce Hogan ([id number]) Date: 08/11/2023 Per RN, Pt w/ low BP, confusion and additional unit of PRBC ordered for low hgb. Will hold PT at this time until Pt is more medically stable for PT. Manjit Rocha, CRITICAL CARE NURSE SPECIALIST Normal [facility] Progress Note PAGING: The Acute Pa in Service providers are available exclusively via [employer] SECURE CHAT. APS does not utilize pagers. [...] is frustrated, thought she would be at jail by now. Then states that her pain [...] deformity. Pup (more content not included)... Normal [facility] THYROID STIMULATING HORMONEo n 08-11-2023 THYROID STIMULATING HORMONE 0.324 uIU/mL Low 0.465-4.680 [facility] Comment on above: Performed By: #### L AB129, LAB15, LAB67 ####Clarifier: RADHA NOGUEIRA ([id number])[address] TSH Qnon 08-11-2023 Interpretation and review of laboratory results Abnormal [facility] VITAMIN B12on 08-11-2023 Cobalamin (Vitamin B12) [Mass/Vol] 310 pg/mL Normal 239-931 [facility] Comment on above: Performed By: #### L AB129, LAB15, LAB67 ####Clarifier: RADHA NOGUEIRA ([id number])[address] BASIC METABOLIC PANELon 03- Anion gap [Moles/Vol] 11 mmol/L Normal 3-13 [facility] Comment on above: Performed By: #### L AB46, LAB15, LAB68 ####Clarifier: RADHA NOGUEIRA ([id number])[address] [place] [address] [place] Calcium [Mass/Vol] 8.4 mg/dL Normal 8.4-10.4 [facility] Comment on above: Performed By: #### Norma AB46, LAB15, LAB68 ####Clarifier: RADHA NOGUEIRA ([id number])[facility] [place] [address] Chloride [Moles/Vol] 99 mmol/L Normal 98-107 [facility] Comment on above: Performed By: #### L AB46, LAB15, LAB68 ####Clarifier: RADHA NOGUEIRA ([id number])[facility] ([facility])[address] [place] [address] CO2 [Moles/Vol] 22 mmol/L Normal 22-30 [facility] Comment on above: Performed By: #### Norma SALEH46, LAB15, LAB68 ####Clarifier: RADHA NOGUEIRA ([id number])[facility] ([facility])[address] [place] [address] Creatinine [Mass/Vol] 1.20 mg/dL High 0.52-1.04 [facility] Comment on above: Performed By: #### Norma SALEH46, LAB15, LAB68 ####Clarifier: RADHA NOGUEIRA ([id number])[facility] ([facility])[address] [place] [address] [place] GLOMERULAR FILTRATION RATE ML/MIN/1.73 SQ M.PREDICTED 51.6 mL/min/1.73m*2 Low >60.0 [facility] Comment on above: Result Comment: Calc ulation based on the Chronic Kidney Disease Epidemiology Collaboration (CKD-EPI) equation refit without adjustment for race Performed By: #### L AB46, LAB15, LAB68 ####Clarifier: RADHA NOGUEIRA ([id number])[facility] ([facility])[address] [place] [address] Glucose [Mass/Vol] 130 mg/dL High 70-100 [facility] Comment on above: Performed By: #### Norma AB46, LAB15, LAB68 ####Clarifier: RADHA NOGUEIRA ([id number])[facility] ([facility])[address] [place] [address] Potassium [Moles/Vol] 4.1 mmol/L Normal 3.5-5.1 [facility] Comment on above: Performed By: #### L AB46, LAB15, LAB68 ####Clarifier: RADHA NOGUEIRA ([id number])[facility])[address] [place] [address] Sodium [Moles/Vol] 132 mmol/L Low 135-145 [facility] Comment on above: Performed By: #### L AB46, LAB15, LAB68 ####Clarifier: RADHA NOGUEIRA ([id number])[facility])[address] [place] [address] Urea nitrogen [Mass/Vol] 17 mg/dL Normal 7-17 [facility] Comment on above: Performed By: #### L AB46, LAB15, LAB68 ####Clarifier: RADHA NOGUEIRA ([id number])[facility] ([facility])[address] [place] [address] Basic metabolic 1998 panelon 08-10-2023 Anion gap [Moles/Vol] 11 mmol/L 3 - 13 mmol/L [facility] Calcium [Mass/Vol] 8.4 mg/dL 8.4 - 10. 4 mg/dL [facility] Chloride [Moles/Vol] 99 mmol/L 98 - 10 7 mmol/L [facility] CO2 [Moles/Vol] 22 mmol/L 22 - 30 mmol/L [facility] Creatinine [Mass/Vol] 1.20 mg/dL High 0.52 - 1.04 mg/dL [facility] GFR/1.73 sq M.predicted MDRD (S/P/Bld) [Vol rate/Area] 51.6 mL/min/{1.73_m2} Low - PINF [facility] Comment on above: Calculation based on the Chronic Kidney Disease Epidemiology Collaboration (CKD-EPI) equation refit without adjustment for race Glucose [Mass/Vol] 130 mg/dL High 70 - 100 mg/dL [facility] Interpretation and review of laboratory results Abnormal [facility] Potassium [Moles/Vol] 4.1 mmol/L 3.5 - 5.1 mmol/L [facility] Sodium [Moles/Vol] 132 mmol/L Low 135 - 145 mmol/L [facility] Urea nitrogen [Mass/Vol] 17 mg/dL 7 - 17 mg/dL [facility] Iesha rudolph is able to accept patient, auth started. Weekend TCC tasked to follow. TCC to assist and follow as needed. Normal [facility] Care Managment Initi al Assessment Date: 08/10/2023 Patient Name: Alfie Hogan : 1960 Patient Information Source of Information: Patient Cognition/Language: WFL - Within Functional Limits Permission given to speak with patient claim service representative/caregiver as indicated: Yes Confirmation of Payer with patient/family: Yes Payer Name: [employer] Complete [place]: No Confirmation of Primary Care Physician: Confirmed [...] be discharged to: SNF Discharge Planning Actions: Long-Term Facility referral indicated, Continue to follow [place] of choice: [place] of choice discussed Patient's Choice Rights and [...] go to a snf, [facility] is [facility] and the second is the [facility]. IT BUSINESS PROCESS ARCHITECT tasked to make referrals. Patient is tearful throughout visit. Discharge plan is snf. TCC to assist and follow as needed. '' Bre Parikh RN Normal [facility] CBC W Auto Differential pane l (Bld)Ordered By: May Valentine on 08-10-2023 Basophils (Bld) [#/Vol] 0.0 10*3/uL 0.0 - 0.2 10*3/uL [facility] Basophils/100 WBC (Bld) 0.2 % 0.0 - 2.0 % [facility] Eosinophils (Bld) [#/Vol] 0.0 10*3/uL 0.0 - 0.5 10*3/uL [facility] Eosinophils/100 WBC (Bld) 0.0 % 0.0 - 6.0 % [facility] Erythrocyte distribution width (RBC) [Ratio] 14.6 % 11.5 - 15.0 % [facility] Hematocrit (Bld) [Volume fraction] 24.7 % Low 35.0 - 47.0 % [facility] Hemoglobin (Bld) [Mass/Vol] 7.6 g/dL Low 11.7 - 16.0 g/dL [facility] Immature granulocytes (Bld) [#/Vol] 0.0 10*3/uL NINF - 0.1 10*3/uL [facility] Immature granulocytes/100 WBC (Bld) 0.4 % 0.0 - 2.0 % [facility] Interpretation and review of laboratory results Abnormal [facility] Lymphocytes (Bld) [#/Vol] 0.3 10*3/uL Low 1.0 - 4.3 10*3/uL [facility] Lymphocytes/100 WBC (Bld) 5.6 % Low 15.0 - 45.0 % [facility] MCH (RBC) [Entitic mass] 27.6 pg 26.0 - 34.[address] [facility] MCHC (RBC) [Mass/Vol] 30.8 % 30.5 - 36.0 % [facility] MCV (RBC) [Entitic vol] 89.8 fL 77.0 - 99.[address] [facility] Monocytes (Bld) [#/Vol] 0.2 10*3/uL 0.0 - 0.9 10*3/uL [facility] Monocytes/100 WBC (Bld) 3.9 % Low 5.0 - 13.0 % [facility] Neutrophils (Bld) [#/Vol] 4.8 10*3/uL 1.8 - 7.5 10*3/uL [facility] Neutrophils/100 WBC (Bld) 89.9 % High 38.0 - 82.0 % [facility] Nucleated RBC/100 WBC (Bld) [Ratio] 0.0 % [facility] Platelet mean volume (Bld) [Entitic vol] 10.9 fL 9.0 - 12.[address] [facility] Platelets (Bld) [#/Vol] 123 10*3/uL Low 140 - 440 10*3/uL [facility] RBC (Bld) [#/Vol] 2.75 10*6/uL Low 3.80 - 5.2 0 10*6/uL [facility] WBC (Bld) [#/Vol] 5.3 10*3/uL 3.6 - 10.7 10*3/uL [facility] CBC WITH AUTO DIFFERENTIALon 08-10-2023 Basophils (Bld) [#/Vol] 0.0 10*3/uL Normal 0.0-0.2 [facility] Comment on above: Performed By: #### L [id number] ####Clarifier: RADHA NOGUEIRA ([id number])[address] Basophils/100 WBC (Bld) 0.2 % Normal 0.0-2.0 S [facility] Comment on above: Performed By: #### L [id number] ####Clarifier: RADHA NOGUEIRA ([id number])[facility])[address] [place] [address] Eosinophils (Bld) [#/Vol] 0.0 10*3/uL Normal 0.0-0.5 [facility] Comment on above: Performed By: #### L [id number] ####Clarifier: RADHA NOGUEIRA ([id number])[facility])[address] [place] [address] Eosinophils/100 WBC (Bld) 0.0 % Normal 0.0-6.0 [facility] Comment on above: Performed By: #### L [id number] ####Clarifier: RADHA NOGUEIRA ([id number])[address] Erythrocyte distribution width (RBC) [Ratio] 14.6 % Normal 11.5-15.0 [facility] Comment on above: Performed By: #### L [id number] ####Clarifier: RADHA NOGUEIRA ([id number])[address] Hematocrit (Bld) [Volume fraction] 24.7 % Low 35.0-47.0 [facility] Comment on above: Performed By: #### L [id number] ####Clarifier: RADHA NOGUEIRA ([id number])[address] Hemoglobin (Bld) [Mass/Vol] 7.6 g/dL Low 11.7-16.0 [facility] Comment on above: Performed By: #### L [id number] ####Clarifier: RADHA NOGUEIRA ([id number])[facility])[address] [place] [address] IMMATURE GRANS % 0.4 % Normal 0.0-2.0 [facility] Comment on above: Performed By: #### L [id number] ####Clarifier: RADHA NOGUEIRA ([id number])[address] IMMATURE GRANS ABSOLUTE 0.0 10*3/uL Normal <0.1 [facility] Comment on above: Performed By: #### L [id number] ####Clarifier: RADHA NOGUEIRA ([id number])[facility])[address] [place] [address] Lymphocytes (Bld) [#/Vol] 0.3 10*3/uL Low 1.0-4.3 [facility] Comment on above: Performed By: #### L [id number] ####Clarifier: RADHA NOGUEIRA ([id number])[facility])[address] [place] [address] Lymphocytes/100 WBC (Bld) 5.6 % Low 15.0-45.0 [facility] Comment on above: Performed By: #### L [id number] ####Clarifier: RADHA NOGUEIRA ([id number])[facility])[address] [place] [address] MCH (RBC) [Entitic mass] 27.6 pg Normal 26.0-34.0 [facility] Comment on above: Performed By: #### L [id number] ####Clarifier: RADHA NOGUEIRA ([id number])[facility])[address] [place] [address] MCHC 30.8 % Normal 30.5-36.0 [facility] Comment on above: Performed By: #### L [id number] ####Clarifier: RADHA NOGUEIRA ([id number])[facility])[address] [place] [address] MCV (RBC) [Entitic vol] 89.8 fL Normal 77.0-99.0 [facility] Comment on above: Performed By: #### L [id number] ####Clarifier: RADHA NOGUEIAR ([id number])[facility])[address] [place] [address] Monocytes (Bld) [#/Vol] 0.2 10*3/uL Normal 0.0-0.9 [facility] Comment on above: Performed By: #### L [id number] ####Clarifier: RADHA NOGUEIRA ([id number])[facility] ([facility])[address] [place] [address] Monocytes/100 WBC (Bld) 3.9 % Low 5.0-13.0 [facility] Comment on above: Performed By: #### L [id number] ####Clarifier: RADHA NOGUEIRA ([id number])[facility] ([facility])[address] [place] [address] NEUTROPHILS ABSOLUTE 4.8 10*3/uL Normal 1.8-7.5 [facility] Comment on above: Performed By: #### L [id number] ####Clarifier: RADHA NOGUEIRA ([id number])[facility] ([facility])[address] [place] [address] Neutrophils/100 WBC (Bld) 89.9 % High 38.0-82.0 [facility] Comment on above: Performed By: #### L [id number] ####Clarifier: RADHA NOGUEIRA ([id number])[facility] ([facility])[address] [place] [address] NRBC 0.0 /100 WBCs Normal 0.0-2.0 [facility] Comment on above: Performed By: #### L [id number] ####Clarifier: RADHA NOGUEIRA ([id number])[facility] ([facility])[address] [place] [address] Platelet mean volume (Bld) [Entitic vol] 10.9 fL Normal 9.0-12.7 [facility] Comment on above: Performed By: #### L [id number] ####Clarifier: RADHA NOGUEIRA ([id number])[facility])[address] [place] [address] Platelets (Bld) [#/Vol] 123 10*3/uL Low 140-440 [facility] Comment on above: Performed By: #### L [id number] ####Clarifier: RADHA [id number])[facility] ([facility])[address] [place] [address] RBC (Bld) [#/Vol] 2.75 10*6/uL Low 3.80-5.20 [facility] Comment on above: Performed By: #### L [id number] ####Clarifier: RADHA NOGUEIRA ([id number])[facility])[address] [place] [address] WBC (Bld) [#/Vol] 5.3 10*3/uL Normal 3.6-10.7 [facility] Comment on above: Performed By: #### L [id number] ####Clarifier: RADHA NOGUEIRA ([id number])[facility] ([facility])[address] [place] [address] COMPLETE URINALYSISon 2023 BACTERIA (#/HPF) IN URINE Few Abnormal Negative [facility] Comment on above: Performed By: #### L [id number] #### Clarifier: RADHA NOGUEIRA ([id number]) [facility] [address] [place] [address] BILIRUBIN, TOTAL PRESENCE IN URINE Negative Normal Negative [facility] Comment on above: Performed By: #### L [id number] #### Clarifier: RADHA NOGUEIRA ([id number]) [facility] ([facility]) [address] [place] [address] Clarity (U) Slightly Cloudy Abnormal Clear [facility] Comment on above: Performed By: #### L [id number] #### Clarifier: RADHA NOGUEIRA ([id number]) [facility] [address] [place] [address] Color (U) Dark Yellow Abnormal Lt. Yellow [facility] Comment on above: Performed By: #### L [id number] #### Clarifier: RADHA NOGUEIRA ([id number]) [facility] [address] [place] [address] GLUCOSE (MG/DL) IN URINE Normal Normal Normal (<70) [facility] Comment on above: Performed By: #### L [id number] #### Clarifier: RADHA NOGUEIRA ([id number]) [facility] ([facility]) [address] [place] [address] [place] GRANULAR CASTS (#/LPF) IN URINE 11-25 Abnormal Negative [facility] Comment on above: Performed By: #### L [id number] #### Clarifier: RADHA NOGUEIRA ([id number]) [facility] ([facility]) [address] [place] [address] HEMOGLOBIN PRESENCE IN URINE 0.1 mg/dL Abnormal Negative [facility] Comment on above: Performed By: #### L [id number] #### Clarifier: RADHA NOGUEIRA ([id number]) [facility]) [address] [place] [address] HYALINE CASTS (#/LPF) IN URINE SEDIMENT BY MICROSCOPY 51-100 Abnormal Negative [facility] Comment on above: Performed By: #### L [id number] #### Clarifier: RADHA NOGUEIRA ([id number]) [facility] ([facility]) [address] [place] [address] Ketones Ql (U) 10 mg/dL Abnormal Negative [facility] Comment on above: Performed By: #### L [id number] #### Clarifier: RADHA NOGUEIRA ([id number]) [facility] [address] [place] [address] LEUKOCYTE ESTERASE PRESENCE IN URINE BY TEST STRIP Negative Normal Negative [facility] Comment on above: Performed By: #### L [id number] #### Clarifier: RADHA NOGUEIRA ([id number]) [facility] ([facility]) [address] [place] [address] [place] MUCUS (#/LPF) IN URINE SEDIMENT Moderate Abnormal Negative [facility] Comment on above: Performed By: #### L [id number] #### Clarifier: RADHA NOGUEIRA ([id number]) [facility] ([facility]) [address] [place] [address] [place] NITRITE PRESENCE IN URINE Negative Normal Negative [facility] Comment on above: Performed By: #### L [id number] #### Clarifier: RADHA NOGUEIRA ([id number]) [facility] ([facility]) [address] [place] [address] pH (U) 6.0 [pH] Normal 5.0-8.0 [facility] Comment on above: Performed By: #### L [id number] #### Clarifier: RADHA NOGUEIRA ([id number]) [facility] ([facility]) [address] [place] [address] Protein (U) [Mass/Vol] 100 mg/dL Abnormal Negative [facility] Comment on above: Performed By: #### L [id number] #### Clarifier: RADHA NOGUEIRA ([id number]) [facility]) [address] [place] [address] RBC (#/HPF) IN URINE SEDIMENT 0-2 Normal 0-2 [facility] Comment on above: Performed By: #### L [id number] #### Clarifier: RADHA NOGUEIRA ([id number]) [facility] ([facility]) [address] [place] [address] Specific gravity (U) [Rel density] 1.029 Normal 1.005-1.030 [facility] Comment on above: Performed By: #### L [id number] #### Clarifier: RADHA NOGUEIRA ([id number]) [facility] ([facility]) [address] [place] [address] SQUAMOUS EPITHELIAL CELLS (#/HPF) IN URINE SEDIMENT 0-2 Normal 3-5 [facility] Comment on above: Performed By: #### L [id number] #### Clarifier: RADHA NOGUEIRA ([id number]) [facility] ([facility]) [address] [place] [address] UROBILINOGEN (MG/DL) IN URINE Normal Normal Normal (0-1) [facility] Comment on above: Performed By: #### L [id number] #### Clarifier: RADHA NOGUEIRA ([id number]) [facility] ([facility]) [address] [place] [address] WBC (LEUKOCYTE) (#/HPF) IN URINE SEDIMENT 11-25 Abnormal 0-5 [facility] Comment on above: Performed By: #### L [id number] #### Clarifier: RADHA NOGUEIRA ([id number]) [facility] ([facility]) [address] [place] [address] WBC CASTS (#/LPF) IN URINE 3-5 Abnormal Negative [facility] Comment on above: Performed By: #### L [id number] #### Clarifier: RADHA NOGUEIRA ([id number]) [facility] ([facility]) [address] [place] [address] CREATININE, URINE, RANDOMon 08-10-2023 CREATININE, URINE 212.1 mg/dL Normal No Range [facility] Comment on above: Performed By: #### L [id number] #### Clarifier: RADHA NOGUEIRA ([id number]) [facility]) [address] [place] [address] Consulton 08-10-2023 Consult PAGING: The Acute Pa in Service providers are available exclusively via [employer]. APS does not utilize pagers. 08/10/2023 Lab [...] Use S (more content not included)... Normal [facility] Creatinine (U) [Mass/Vol]on 08-10-2023 CREATININE, URINE 212.1 mg/dL No Range [facility] D-DIMER,QUANTITATIVEon 08-09 D-DIMER, INNOVANCE 0.79 mg/L High <0.[address] [facility] Comment on above: Result Comment: DINA Mireles COMMENTS: [employer] D-Dimer values of <0.50 mg/L FEU can be used in combination with a pre-test probability model (e.g. Well's) to exclude pulmonary embolism (PE) disease, as well as an aid in the diagnosis of deep vein thrombosis (DVT). Performed By: #### L [id number], [id number] ####Clarifier: RADHA NOGUEIRA ([id number])[facility])[address] [place] [address] ETHANOLon 08-10-2023 ETHANOL IN SER/PLAS <0.010 Normal 0.000-0.010 [facility] Comment on above: Result Comment: This sample [...] Performed By: #### L AB46, [id number], [id number] ####Clarifier: RADHA NOGUEIRA ([id number])[facility])[address] [place] [address] ETHYL GLUCURONIDE SCREEN, UR INEon 08-10-2023 ETHYL GLUCURONIDE, URINE Negative Normal Negative [facility] Comment on above: Result Comment: DINA Mireles [...] been determined by the clinical laboratories of [facility]. Performed By: #### L [id number], [id number] ####Clarifier: RADHA NOGUEIRA ([id number])[facility])[address] [place] [address] Ethanol (Bld) [Mass/Vol]on 0 08-10-2023 Ethanol [Mass/Vol] g/dL 0.000 - 0.010 g/dL [facility] Comment on above: This sample may [...] Interpretation and review of laboratory results Normal [facility] FERRITINon 08-10-2023 Ferritin [Mass/Vol] 47 ng/mL Normal 11-264 [facility] Comment on above: Performed By: #### L AB46, [id number], [id number] ####Clarifier: RADHA NOGUEIRA ([id number])[facility])[address] [place] [address] FREE T4on 08-10-2023 Free T4 [Mass/Vol] 1.15 ng/dL Normal 0.78-2.19 [facility] Comment on above: Performed By: #### L [id number], [id number] ####Clarifier: RADHA NOGUEIRA ([id number])[facility])[address] [place] [address] Ferritin [Mass/Vol]on 2023 Interpretation and review of laboratory results Normal [facility] Fibrin D-dimer FEU (PPP) [Ma ss/Vol]on 08-10-2023 Interpretation and review of laboratory results Abnormal [facility] D-Dimer va lues of <0.50 mg/L FEU can be used in combination with a pre-test probability model (e.g. Well's) to exclude pulmonary embolism (PE) disease, as well as an aid in the diagnosis of deep vein thrombosis (DVT). [facility] IRON AND TIBCon 08-10-2023 IRON BINDING CAPACITY 224 ug/dL Low 261-497 [facility] Comment on above: Performed By: #### L [id number], [id number] ####Clarifier: RADHA NOGUEIRA ([id number])[facility] ([facility])[address] [place] [address] IRON SATURATION 16 % Normal 15-50 [facility] Comment on above: Performed By: #### L [id number], [id number] ####Clarifier: RADHA [id number])[facility] [place] [address] IRON, TOTAL 35 ug/dL Low 37-170 [facility] Comment on above: Performed By: #### L [id number], [id number] ####Clarifier: RADHA NOGUEIRA ([id number])[facility])[address] [place] [address] Iron and Iron binding capaci ty panelon 08-10-2023 Interpretation and review of laboratory results Abnormal [facility] Iron [Mass/Vol] 35 ug/dL Low 37 - 170 ug/dL [facility] Iron binding capacity [Mass/Vol] 224 ug/dL Low 261 - 497 ug/dL [facility] Iron saturation [Mass fraction] 16 % 15 - 50 % [facility] Laboratory - Chemistry and C hemistry - challengeon 08-10-2023 Sodium (24H U) [Mass/Vol] 22 mmol/L Low 30 - 90 mmol/L [facility] Urea nitrogen (U) [Mass/Vol] 283 mg/dL No Range [facility] Ferritin [Mass/Vol] 47 ng/mL 11 - 264 ng/mL [facility] Laboratory - Coagulationon 0 08-10-2023 Fibrin D-dimer FEU (PPP) [Mass/Vol] 0.79 mg/L High NINF - 0.50 mg/L [facility] PT Coag (Bld) [Time] 11.0 s 9.0 - 12.0 s [facility] Laboratory - Drug toxicology on 08-10-2023 Amphetamines Ql (U) Positive Negative [facility] Benzodiazepines Ql (U) Positive Negative [facility] Cocaine Ql (U) Negative Negative [facility] Ethanol [Mass/Vol] Negative Negative [facility] Methadone Ql (U) Negative Negative [facility] Opiates Ql (U) Positive Negative [facility] MEDICATION ASSISTED TREATMEN T PANELon 08-10-2023 Amphetamines Ql (U) Positive Normal Negative [facility] Comment on above: Performed By: #### L [id number], [id number] ####Clarifier: RADHA NOGUEIRA ([id number])[facility] ([facility])[address] [place] [address] BARBITURATES Negative Normal Negative [facility] Comment on above: Performed By: #### L [id number], [id number] ####Clarifier: RADHA NOGUEIRA ([id number])[facility])[address] [place] [address] Benzodiazepines Ql (U) Positive Normal Negative [facility] Comment on above: Performed By: #### L [id number], [id number] ####Clarifier: RADHA NOGUEIRA ([id number])[facility] ([facility])[address] [place] [address] BUPRENORPHINE SCREEN Negative Normal Negative [facility] Comment on above: Performed By: #### L [id number], [id number] ####Clarifier: RADHA NOGUEIRA ([id number])[facility])[address] [place] [address] Cocaine Ql (U) Negative Normal Negative [facility] Comment on above: Performed By: #### L [id number], [id number] ####Clarifier: RADHA NOGUEIRA ([id number])[facility] ([facility])[address] [place] [address] ETHANOL-ETOHO Negative Normal Negative [facility] Comment on above: Result Comment: [...] using non-forensic procedures. Performed By: #### L [id number], [id number] ####Clarifier: RADHA NOGUEIRA ([id number])[facility] [place] [address] FENTANYL Negative Normal Negative [facility] Comment on above: Performed By: #### L [id number], [id number] ####Clarifier: RADHA NOGUEIRA ([id number])[facility] ([facility])[address] [place] [address] Methadone Ql (U) Negative Normal Negative [facility] Comment on above: Performed By: #### L [id number], [id number] ####Clarifier: RADHA NOGUEIRA ([id number])[facility])[address] [place] [address] Opiates Ql (U) Positive Normal Negative [facility] Comment on above: Performed By: #### L [id number], [id number] ####Clarifier: RADHA NOGUEIRA ([id number])[facility] ([facility])[address] [place] [address] OXYCODONE/OXYMORPHONE Negative Normal Negative [facility] Comment on above: Performed By: #### L [id number], [id number] ####Clarifier: RADHA NOGUEIRA ([id number])[facility] ([facility])[address] [place] [address] PCP Negative Normal Negative [facility] Comment on above: Performed By: #### L [id number], [id number] ####Clarifier: RADHA NOGUEIRA ([id number])[facility])[address] [place] [address] THC-MTTHC Positive Normal Negative [facility] Comment on above: Performed By: #### L [id number], [id number] ####Clarifier: RADHA NOGUEIRA ([id number])[facility])[address] [place] [address] No Panel InformationOrdered By: Cr Arnold on 08-10-2023 ETHYL GLUCURONIDE, URINE Negative Negative [facility] Ethyl Glucuronide weber s been screened [...] been determined by the clinical laboratories of [facility]. [facility] No Panel Informationon 08-09 BARBITURATES Negative Negative [facility] BUPRENORPHINE SCREEN Negative Negative [facility] FENTANYL Negative Negative [facility] OXYCODONE/OXYMORPHONE Negative Negative [facility] PCP Negative Negative [facility] THC Positive Negative [facility] The expected value f or the [...] treatment only. Analysis performed using non-forensic procedures. [facility] Interpretation and review of laboratory results Abnormal [facility] PROTHROMBIN TIMEon 4 INR Coag (PPP) [Relative time] 1.0 {INR} Normal 0.9-1.[address] [facility] Comment on above: Order Comment: If [...] Myocardial Infarction Performed By: #### L [id number], [id number] ####Clarifier: RADHA NOGUEIRA ([id number])[facility])[address] [place] [address] PT Coag (PPP) [Time] 11.0 s Normal 9.0-12.0 [facility] Comment on above: Order Comment: If pa tient on coumadin within 4 days prior. Performed By: #### L [id number], [id number] ####Clarifier: RADHA NOGUEIRA ([id number])[facility] ([facility])[address] [place] [address] PT Coag (Bld) [Time]on 08-09 INR Coag (PPP) [Relative time] 1.0 {INR} 0.9 - 1.[address] [facility] Comment on above: Recommended Anticoag ulant [...] Interpretation and review of laboratory results Normal [facility] SODIUM, URINE, RANDOMon Sodium (U) [Moles/Vol] 22 mmol/L Low 30-90 [facility] Comment on above: Performed By: #### L [id number] #### Clarifier: RADHA NOGUEIRA ([id number]) [facility] ([facility]) [address] [place] [address] UREA NITROGEN, URINEon 08-09 UREA NITROGEN, URINE 283 mg/dL Normal No Range [facility] Comment on above: Performed By: #### L [id number] #### Clarifier: RADHA NOGUEIRA ([id number]) [facility]) [address] [place] [address] Urinalysis complete panel (U )Ordered By: Lori Alves on 08-10-2023 Bacteria LM.HPF (Urine sed) [#/Area] Few Abnormal Negative /HPF [facility] Bilirubin Ql (U) Negative Negative mg/dL [facility] Clarity (U) Slightly Cloudy Abnormal Clear [facility] Color (U) Dark Yellow Abnormal Lt. Yellow [facility] Epithelial cells.squamous LM.HPF (Urine sed) [#/Area] 0-[address] [facility] Glucose Ql (U) Normal Normal (<70) mg/dL [facility] Granular casts LM.HPF (Urine sed) [#/Area] 11-25 Abnormal Negative /LPF [facility] Hemoglobin Ql (U) 0.1 mg/dL Abnormal Negative [facility] Hyaline casts Auto (Urine sed) [#/Area] 51-100 Abnormal Negative /LPF [facility] Interpretation and review of laboratory results Abnormal [facility] Ketones (U) [Mass/Vol] 10 mg/dL Abnormal Negative [facility] Leukocyte esterase Test strip Ql (U) Negative Negative Philipp/uL [facility] Mucus LM.HPF (Urine sed) [#/Area] Moderate Abnormal Negative /LPF [facility] Nitrite Ql (U) Negative Negative [facility] pH (U) 6.0 [pH] 5.0 - 8.[address] [facility] Protein (U) [Mass/Vol] 100 mg/dL Abnormal Negative [facility] RBC LM.HPF (Urine sed) [#/Area] 0-[address] [facility] Specific gravity (U) [Rel density] 1.029 1.005 - 1.[address] [facility] Urobilinogen (U) [Mass/Vol] Normal Normal (0-1) mg/dL [facility] WBC casts LM.HPF (Urine sed) [#/Area] 3-5 Abnormal Negative /LPF [facility] WBC LM.HPF (Urine sed) [#/Area] 11-25 Abnormal [facility] Consulton 08-09-2023 Consult Hospital Medicine Consult Patient [...] Dizziness 11/09/2020 Dvt femoral (deep venous thrombosis) ([facility]) right...was on blood thinners after broken ankle [...] 50 mL/hr, Last Rate: 50 mL/hr (08/09/23 8178) PRN medications: albuterol, HYDROmorphone OR HYDROmorphone, naloxone, [...] 96 % (more content not included)... Normal [facility] No Panel Informationon 08-08 There [...] and soha for skin. End of dictation [facility] ECG 12-LEADon 08-03-2023 ECG 12-LEAD IMPRESSION: Sinus rhythm Right bundle branch block LOW VOLTAGE IN PRECORDIAL LEADS Electronically Signed On 08-03-2023 08:47:03 EST by Eric Subramanian [facility] [id number] 08-02-2023 [id number] Shayy GOMEZ made aware of vital signs and recent fall Normal [facility] [id number] [facility]. Patient states she forgot her [...] sentences without becoming short of breath Normal [facility] BLOOD TYPE AND SCREEN GELon 08-02-2023 ABO GROUPING A Normal [facility] Comment on above: Performed By: #### L [id number] ####Clarifier: RADHA NOGUEIRA ([id number])[facility] ([facility])[address] [place] [address] RH TYPE IN BLOOD Negative Normal [facility] Comment on above: Performed By: #### L [id number] ####Clarifier: RADHA NOGUEIRA ([id number])[facility] ([facility])[address] [place] [address] COMPLETE URINALYSISon 2023 BACTERIA (#/HPF) IN URINE Negative Normal Negative [facility] Comment on above: Performed By: #### L [id number] ####Clarifier: RADHA NOGUEIRA ([id number])[address] BILIRUBIN, TOTAL PRESENCE IN URINE Negative Normal Negative [facility] Comment on above: Performed By: #### L [id number] ####Clarifier: RADHA NOGUEIRA ([id number])[facility])[address] [place] [address] Clarity (U) Clear Normal Clear [facility] [facility] Comment on above: Performed By: #### L [id number] ####Clarifier: RADHA NOGUEIRA ([id number])[address] Color (U) Light Yellow Normal Lt. Yellow [facility] Comment on above: Performed By: #### L [id number] ####Clarifier: RADHA [id number])[facility] ([facility])[address] [place] [address] GLUCOSE (MG/DL) IN URINE Normal Normal Normal (<70) [facility] Comment on above: Performed By: #### L [id number] ####Clarifier: RADHA NOGUEIRA ([id number])[facility])[address] [place] [address] HEMOGLOBIN PRESENCE IN URINE Negative Normal Negative [facility] Comment on above: Performed By: #### L [id number] ####Clarifier: RADHA NOGUEIRA ([id number])[facility])[address] [place] [address] Ketones Ql (U) Negative Normal Negative [facility] Comment on above: Performed By: #### L [id number] ####Clarifier: RADHA NOGUEIRA ([id number])[facility] ([facility])[address] [place] [address] LEUKOCYTE ESTERASE PRESENCE IN URINE BY TEST STRIP 25 Philipp/uL Abnormal Negative [facility] Comment on above: Performed By: #### L [id number] ####Clarifier: RADHA NOGUEIRA ([id number])[facility] ([facility])[address] [place] [address] NITRITE PRESENCE IN URINE Negative Normal Negative [facility] Comment on above: Performed By: #### L [id number] ####Clarifier: RADHA NOGUEIRA ([id number])[facility] ([facility])[address] [place] [address] pH (U) 6.5 [pH] Normal 5.0-8.0 [facility] Comment on above: Performed By: #### L [id number] ####Clarifier: RADHA NOGUEIRA ([id number])[facility] ([facility])[address] [place] [address] Protein (U) [Mass/Vol] Negative Normal Negative [facility] Comment on above: Performed By: #### L [id number] ####Clarifier: RADHA NOGUEIRA ([id number])[facility])[address] [place] [address] [place] RBC (#/HPF) IN URINE SEDIMENT Negative Normal 0-2 [facility] Comment on above: Performed By: #### L [id number] ####Clarifier: RADHA NOGUEIRA ([id number])[facility] ([facility])[address] [place] [address] Specific gravity (U) [Rel density] 1.009 Normal 1.005-1.030 [facility] Comment on above: Performed By: #### L [id number] ####Clarifier: RADHA NOGUEIRA ([id number])[facility] ([facility])[address] [place] [address] SQUAMOUS EPITHELIAL CELLS (#/HPF) IN URINE SEDIMENT 0-2 Normal 3-5 [facility] Comment on above: Performed By: #### L [id number] ####Clarifier: RADHA NOGUEIRA ([id number])[facility] ([facility])[address] [place] [address] UROBILINOGEN (MG/DL) IN URINE Normal Normal Normal (0-1) [facility] Comment on above: Performed By: #### L [id number] ####Clarifier: RADHA NOGUEIRA ([id number])[facility] ([facility])[address] [place] [address] WBC (LEUKOCYTE) (#/HPF) IN URINE SEDIMENT 0-2 Normal 0-5 [facility] Comment on above: Performed By: #### L [id number] ####Clarifier: RADHA NOGUEIRA ([id number])[facility] ([facility])[address] [place] [address] HEMOGLOBIN A1Con 08-02-2023 Glucose [Mass/Vol] 88 mg/dL Normal [facility] Comment on above: Performed By: #### L AB90 ####Clarifier: RADHA NOGUEIRA ([id number])[facility] ([facility])[address] [place] [address] HbA1c (Bld) [Mass fraction] 4.7 % Normal <5.7 [facility] Comment on above: Result Comment: Norm al less than 5.7% Prediabetes 5.7% to 6.4% Diabetes 6.5% or higher --HgbA1C levels may not be accurate in patients who have renal disease, received recent blood transfusions, are anemic, or who have dyshemoglobinemia. Performed By: #### L AB90 ####Clarifier: RADHA NOGUEIRA ([id number])[address] MRSA BY PCRon 08-02-2023 MRSA BY [...] modified and its performance characteristics determined by [facility]. The U. S. Food and Drug Administration has not approved or cleared this test; however, FDA clearance or approval is not currently required for clinical use. The results are not intended to be used as the sole means for clinical diagnosis or patient management decisions. Normal [facility] Comment on above: Performed By: #### L [id number] #### Clarifier: RADHA NOGUEIRA ([id number]) [address] PREALBUMINon 08-02-2023 Prealbumin [Mass/Vol] 20.0 mg/dL Normal 17.6-36.0 [facility] Comment on above: Performed By: #### L [id number] #### Clarifier: RADHA NOGUEIRA ([id number]) [facility]) [address] [place] [address] PREPROCINSon 08-02-2023 PREPROCINS Medication List Accurate as [...] patient: Take day of surgery Additional Instructions: CIVIL CAD TECH AND PARKING IN THE MAIN DECK ARE [...] your scheduled surgery time. Please bring your [facility] Surgical folder and medication list with [...] your machine, it will be provided. Normal [facility] PROTHROMBIN TIMEon 4 INR Coag (PPP) [Relative time] 0.9 {INR} Normal 0.9-1.1 [facility] Comment on above: Result Comment: Darius mmended [...] Myocardial Infarction Performed By: #### L [id number] ####Clarifier: RADHA NOGUEIRA ([id number])[facility] ([address] PT Coag (PPP) [Time] 10.0 s Normal 9.0-12.0 [facility] Comment on above: Performed By: #### L AB320 ####Clarifier: RADHA NOGUEIRA ([id number])[facility] ([facility])[address] [place] [address] Absolute lymphocyte countOrd ered By: Eliazar Chavarria on 07-12-2023 Lymphocytes Auto (Unsp spec) [#/Vol] 1.04 10*3/uL 0.83-4.51 [facility] Automated lymphocyte count a s percentage of total leukocytesOrdered By: Eliazar Chavarria on 07-12-2023 Lymphocytes/100 WBC Auto (Unsp spec) 22.3 % 19-41 [facility] Basophil percentageOrdered B y: Eliazar Chavarria on 07-12-2023 Basophil percentage 10-25 SEEN /hpf 0-5 [facility] Basophils/100 WBC (Bld) 0.6 % 0-1 [facility] Bilirubin [Mass/Vol] 1.30 mg/dL 0.20-1.00 [facility] Comment on above: For patients on eltr ombopag therapy, use of Dimension Collins TBIL is not recommended. Chloride [Moles/Vol] 102 mmol/L 98-107 [facility] Eosinophils/100 WBC (Bld) 0.6 % 0-5 [facility] Glucose [Mass/Vol] 95 mg/dL 74-106 [facility] Hemoglobin (Bld) [Mass/Vol] 13.1 g/dL 12.0-15.0 [facility] Monocytes/100 WBC (Bld) 6.9 % 0-10 [facility] Neutrophils (Bld) [#/Vol] 3.2 10*3/uL 2.0-7.7 [facility] Neutrophils/100 WBC (Bld) 69.4 % 47-70 [facility] Potassium [Moles/Vol] 3.3 mmol/L 3.5-5.1 [facility] Protein [Mass/Vol] 6.8 g/dL 6.4-8.2 [facility] Sodium [Moles/Vol] 134 mmol/L 136-145 [facility] WBC (Bld) [#/Vol] 4.7 10*3/uL 4.4-11.0 [facility] Bilirubin Test strip Ql (U)O rdered By: Eliazar Chavarria on 07-12-2023 Bilirubin Ql (U) Negative Negative [facility] Determination of erythrocyte mean corpuscular volume (MCV)Ordered By: Eliazar Chavarria on 07-12-2023 MCV (RBC) [Entitic vol] 86.3 fL 81-99 [facility] Erythrocyte distribution wid th ratioOrdered By: Eliazar Chavarria on 07-12-2023 Erythrocyte distribution width (RBC) [Ratio] 14.3 % 11.6-14.6 [facility] Erythrocyte distribution wid th standard deviationOrdered By: Eliazar Chavarria on 07-12-2023 Erythrocyte distribution width (RBC) [Entitic vol] 45.0 fL 35.1-43.9 [facility] Hematocrit Auto (Bld) [Volum e fraction]Ordered By: Eliazar Chavarria on 07-12-2023 Hematocrit (Bld) [Volume fraction] 42.2 % 37-47 [facility] Immature granulocytes/100 WB C Auto (Bld)Ordered By: Eliazar Chavarria on 07-12-2023 Immature granulocytes/100 WBC (Bld) 0.200 % 0.0-0.9 [facility] Comment on above: IG% - Immature Granu locytes (promyelocytes, myelocytes and metamyelocytes) > 1% indicates that a LEFT SHIFT is Present. Ketones Test strip Ql (U)Ord ered By: Eliazar Chavarria on 07-12-2023 Ketones Ql (U) 5 mg/dl Negative [facility] Laboratory - Chemistry and C hemistry - challengeOrdered By: Eliazar Chavarria on 07-12-2023 Albumin/Globulin [Mass ratio] 1.3 {ratio} 0.9-2.4 [facility] ALP [Catalytic activity/Vol] 158 U/L 45-117 [facility] ALT [Catalytic activity/Vol] 24 U/L 13-56 [facility] CO2 [Moles/Vol] 26.0 mmol/L 21.0-32.0 [facility] Globulin (S) [Mass/Vol] 3.0 g/dL 2.2-4.2 [facility] Urea nitrogen/Creatinine [Mass ratio] 8.7 mg/mg 10-20 [facility] Laboratory - Hematology and Cell countsOrdered By: Eliazar Chavarria on 07-12-2023 MCH (RBC) [Entitic mass] 26.8 pg 27.0-32.0 [facility] MCHC (RBC) [Mass/Vol] 31.0 g/dL 32-36 [facility] Nucleated RBC/100 WBC (Bld) [Ratio] 0 % 0-5 [facility] Platelet mean volume (Bld) [Entitic vol] 10.7 fL 6.2-12.0 [facility] Platelets (Bld) [#/Vol] 167 10*3/uL 150-450 [facility] Mucus LM Ql (Urine sed)Order ed By: Eliazar Chavarria on 07-12-2023 Mucus Ql (Urine sed) 0 SEEN /hpf [facility] Nitrite Test strip Ql (U)Ord ered By: Eliazar Chavarria on 07-12-2023 Nitrite Ql (U) Negative Negative [facility] No Panel InformationOrdered By: Eliazar Chavarria on 07-12-2023 Urine RBC 0-5 SEEN /hpf 0-5 [facility] Estimated Creatinine Clearance Calc 47.13 ml/min [facility] Estimated GFR (MDRD) Amer 42 mL/min >60 [facility] Comment on above: GFR Calc Estimated GFR (MDRD) Non-Af Amer 35 mL/min >60 [facility] Comment on above: Non- GFR Calc Protein Test strip Ql (U)Ord ered By: Eliazar Chavarria on 07-12-2023 Protein Ql (U) 100 mg/dl Negative [facility] RBC Auto (Bld) [#/Vol]Ordere d By: Eliazar Chavarria on 07-12-2023 RBC (Bld) [#/Vol] 4.89 10*6/uL 4.2-5.4 [facility] Serum or plasma calcium marisela urement (mass/volume)Ordered By: Eliazar Chavarria on 07-12-2023 Calcium [Mass/Vol] 9.2 mg/dL 8.5-10.1 [facility] Serum or plasma creatinine m easurement (mass/volume)Ordered By: Eliazar Chavarria on 07-12-2023 Creatinine [Mass/Vol] 1.61 mg/dL 0.55-1.02 [facility] Comment on above: The validity of the calculated GFR & GFRAA in patients over 70 years has not been determined. Clinical correlation is essential. Serum or plasma urea nitroge n measurement (mass/volume)Ordered By: Eliazar Chavarria on 07-12-2023 Urea nitrogen [Mass/Vol] 14 mg/dL 7-18 [facility] Squamous epithelial cells de tection in urine sediment by light microscopyOrdered By: Eliazar Chavarria on 07-12-2023 Epithelial cells.squamous LM Ql (Urine sed) 0-5 SEEN /hpf 5-10 [facility] Thin prep Papanicolaou smear with manual screeningOrdered By: Eliazar Chavarria on 07-12-2023 Thin prep Papanicolaou smear with manual screening 3.8 g/dL 3.2-5.0 [facility] Thin prep Papanicolaou smear with manual screening 18 U/L 15-37 [facility] Thin prep Papanicolaou smear with manual screening 6 5-15 [facility] Urine blood detectionOrdered By: Eliazar Chavarria on 07-12-2023 RBC Ql (U) 10 /ul Negative [facility] Urine clarityOrdered By: Katina Chavarria on 07-12-2023 Clarity (U) Sl. Cloudy Clear [facility] Urine color determinationOrd ered By: Eliazar Chavarria on 07-12-2023 Color (U) Yellow Yellow [facility] Urine glucose detectionOrder ed By: Eliazar Chavarria on 07-12-2023 Glucose Ql (U) Normal mg/dl Normal [facility] Urine leukocyte esterase det ection by dipstickOrdered By: Eliazar Chavarria on 07-12-2023 Leukocyte esterase Test strip Ql (U) 100 /ul Negative [facility] Urine pHOrdered By: Eliazar Chavarria on 07-12-2023 pH (U) 6.0 [pH] 5.0 - 8.0 [facility] Urine sediment bacteria coun t by microscopy (number/high power field)Ordered By: Eliazar Chavarria on 07-12-2023 Bacteria LM.HPF (Urine sed) [#/Area] 0 /[HPF] None Seen [facility] Urine specific gravity measu rementOrdered By: Eliazar Chavarria on 07-12-2023 Specific gravity (U) [Rel density] 1.020 1.002-1.030 [facility] Urine urobilinogen measureme ntOrdered By: Eliazar Chavarria on 07-12-2023 Urobilinogen Ql (U) Normal mg/dl Normal [facility] CNPNon 07-06-2023 CNPN Telephone (AGSPINE1) -------- ALFIE HOGAN ([id number]) 1960 F Date Time Provider Department 07/06/23 AMY ROSS AGSPINE1 During your visit today, we recorded the following information about you: Prisca Bell PSS 07/06/2023 2:15 PM Signed Received referral from Annika Collado MD, PhD for patient to have Right L3 selective nerve root block Imaging- CT scan scheduled for 07/30/23 Anticoag- Eliquis Please review and advise Prisca Bell [place] to Dr. Ross, Beverley Lucash Jorge Alberto JOINER, Workers Compensation [facility] P: [id number] / F: [phone] / [email or web address] Amy Ross MD 07/06/2023 4:21 PM [...] I will call to schedule. Prisca Bell [address] Mechanical Engineer to Dr. Ross, Dr. Meier, Josephine Azul PA-C, Workers Compensation [facility] P: [id number] / F: [phone] / [email or web address] ' Prisca Bell PSS 07/09/2023 11:41 AM Signed Spoke to patient about scheduling injection patient stated she doesn't want to get this done. Prisca Bell [address] Mechanical Engineer to Dr. Ross, Dr. Meier, Josephine Azul PA-C, Workers Compensation [facility] P: [id number] / F: [phone] / Allergies As of Date: 07/06/2023 Noted [...] Visit Diagnosis:Lumbar radiculopathy [M54.16] Order(s):PRE-CERT ORDER (AG) [[id number]] Order #: [id number]: 1 Prescriptions as of 07/09/2023 - carvedilol [...] [M12.9] Asthma (more content not included)... Normal [facility] CNOVon 07-05-2023 CNOV Office Visit (NEAGCL M) -------- ALFIE HOGAN ([id number]) 1960 F Date Time Provider Department 07/05/23 [...] Age: [age] year old Sex: female MRN/E# [id number] Chief Complaint: No chief complaint on file. [...] FLX DX W/COLLJ SPEC WHEN PFRMD 09/15/2005 [facility] Colonoscopy EGD TRANSORAL BIOPSY SINGLE/MULTIPLE 08/30/06 [...] bedtime. thiamine (more content not included)... Normal [facility] 36on 06-28-2023 36 Rx refused, these we re all DC'd Normal [facility] 36 All rx's were Dc'd please advise. [facility] 36 Prescription Request : Last medication check: 02/15/23 Last physical exam: 11/26/20 Next scheduled appointment: na Last date of refill on this medication 03/09/[address] [facility] Absolute lymphocyte countOrd ered By: Corin Mariscal on 06-18-2023 Lymphocytes Auto (Unsp spec) [#/Vol] 0.73 10*3/uL 0.83-4.51 [facility] Basophil percentageOrdered B y: Corin [place] on 06-18-2023 Basophils/100 WBC (Bld) 1.0 % 0-1 [facility] Bilirubin [Mass/Vol] 1.40 mg/dL 0.20-1.00 [facility] Comment on above: For patients on eltr ombopag therapy, use of Dimension Collins TBIL is not recommended. Chloride [Moles/Vol] 106 mmol/L 98-107 [facility] Cholesterol [Mass/Vol] 137 mg/dL <200 [facility] Comment on above: <200 mg/dL Desirable 200-240 mg/dL Borderline >240 mg/dL High Risk Eosinophils/100 WBC (Bld) 1.2 % 0-5 [facility] Glucose [Mass/Vol] 89 mg/dL 74-106 [facility] Neutrophils (Bld) [#/Vol] 3.0 10*3/uL 2.0-7.7 [facility] Neutrophils/100 WBC (Bld) 72.3 % 47-70 [facility] Potassium [Moles/Vol] 5.1 mmol/L 3.5-5.1 [facility] Protein [Mass/Vol] 6.8 g/dL 6.4-8.2 [facility] Sodium [Moles/Vol] 139 mmol/L 136-145 [facility] Triglyceride [Mass/Vol] 121 mg/dL <199 [facility] Comment on above: The drugs N-Acetylcy steine and Metamizole may falsely depress this assay.Serum Triglycerides Reference Interval Normal <150 mg/dL Borderline high 150 - 199 mg/dL High 200 - 499 mg/dL Very High > or = 500 mg/dL WBC (Bld) [#/Vol] 4.2 10*3/uL 4.4-11.0 [facility] Blood erythrocytes count (nu mber/volume)Ordered By: Corin Mariscal on 06-18-2023 RBC (Bld) [#/Vol] 4.54 10*6/uL 4.2-5.4 [facility] Blood hemoglobin measurement (mass/volume)Ordered By: Corin Mariscal on 06-18-2023 Hemoglobin (Bld) [Mass/Vol] 12.3 g/dL 12.0-15.0 [facility] Blood lymphocytes/100 leukoc ytesOrdered By: Corin Mariscal on 06-18-2023 Lymphocytes/100 WBC (Bld) 17.4 % 19-41 [facility] Blood monocytes/100 leukocyt esOrdered By: Corin Mariscal on 06-18-2023 Monocytes/100 WBC (Bld) 7.9 % 0-10 [facility] Blood platelet mean volumeOr dered By: Corin Mariscal on 06-18-2023 Platelet mean volume (Bld) [Entitic vol] 10.7 fL 6.2-12.0 [facility] Determination of erythrocyte mean corpuscular volume (MCV)Ordered By: Corin Mariscal on 06-18-2023 MCV (RBC) [Entitic vol] 91.4 fL 81-99 [facility] Hematocrit Auto (Bld) [Volum e fraction]Ordered By: Corin Mariscal on 06-18-2023 Hematocrit (Bld) [Volume fraction] 41.5 % 37-47 [facility] - Chemistry and C hemistry - challengeOrdered By: [facility] [place] on 06-18-2023 ALP [Catalytic activity/Vol] 154 U/L 45-117 [facility] ALT [Catalytic activity/Vol] 40 U/L 13-56 [facility] CO2 [Moles/Vol] 26.0 mmol/L 21.0-32.0 [facility] Globulin (S) [Mass/Vol] 2.6 g/dL 2.2-4.2 [facility] Urea nitrogen/Creatinine [Mass ratio] 18.3 mg/mg 10-20 [facility] - Hematology and Cell countsOrdered By: [facility] on 06-18-2023 Erythrocyte distribution width (RBC) [Entitic vol] 47.1 fL 35.1-43.9 [facility] Erythrocyte distribution width (RBC) [Ratio] 14.0 % 11.6-14.6 [facility] Immature granulocytes/100 WBC (Bld) 0.200 % 0.0-0.9 [facility] Comment on above: IG% - Immature Granu locytes (promyelocytes, myelocytes and metamyelocytes) > 1% indicates that a LEFT SHIFT is Present. MCH (RBC) [Entitic mass] 27.1 pg 27.0-32.0 [facility] Nucleated RBC/100 WBC (Bld) [Ratio] 0 % 0-5 [facility] MCHC Auto (RBC) [Mass/Vol]Or dered By: [facility] [place] on 06-18-2023 MCHC (RBC) [Mass/Vol] 29.6 g/dL 32-36 [facility] No Panel InformationOrdered By: [facility] Hospital[facility]agdish Mariscal on 06-18-2023 Estimated GFR (MDRD) Amer 69 mL/min >60 [facility] Comment on above: GFR Calc Estimated GFR (MDRD) Non-Af Amer 57 mL/min >60 [facility] Comment on above: Non- GFR Calc Thyroid Stimulating Hormone (TSH) 0.48 uIU/mL 0.358-3.74 [facility] Vitamin D 25-Hydroxy 9.8 ng/mL [facility] Comment on above: Vitamin D 25(OH) Sta tus Range Deficiency <20 ng/mL (50nmol/L) Insufficiency 20 - 30 ng/mL (50 - 75 nmol/L) Sufficiency 30 - 100 ng/mL (75 - 250 nmol/L) Toxicity >100 ng/mL (>250 nmol/L) Platelets bldOrdered By: Mary Mariscal on 06-18-2023 Platelets (Bld) [#/Vol] 153 10*3/uL 150-450 [facility] Serum or plasma albumin marisela urement (mass/volume)Ordered By: Corin Mariscal on 06-18-2023 Albumin [Mass/Vol] 4.2 g/dL 3.2-5.0 [facility] Serum or plasma albumin/glob ulin mass ratioOrdered By: Corin Mariscal on 06-18-2023 Albumin/Globulin [Mass ratio] 1.6 {ratio} 0.9-2.4 [facility] Serum or plasma calcium marisela urement (mass/volume)Ordered By: Corin Mariscal on 06-18-2023 Calcium [Mass/Vol] 9.6 mg/dL 8.5-10.1 [facility] Serum or plasma cholesterol in HDL measurement (mass/volume)Ordered By: Corin Mariscal on 06-18-2023 Cholesterol in HDL [Mass/Vol] 53 mg/dL >40 [facility] Comment on above: The drugs N-Acetylcy steine and Metamizole may falsely depress this assay. Reference Range HDL <40 mg/dL Low HDL Cholesterol HDL >or= 60 mg/dL High HDL Cholesterol Serum or plasma cholesterol in VLDL measurement (mass/volume)Ordered By: Corin Mariscal on 06-18-2023 Cholesterol in VLDL [Mass/Vol] 24 mg/dL 5-40 [facility] Serum or plasma creatinine m easurement (mass/volume)Ordered By: Corin Mariscal on 06-18-2023 Creatinine [Mass/Vol] 1.04 mg/dL 0.55-1.02 [facility] Comment on above: The validity of the calculated GFR & GFRAA in patients over 70 years has not been determined. Clinical correlation is essential. Serum or plasma low density lipoprotein (LDL) cholesterol measurement (mass/volume)Ordered By: Corin Mariscal on 06-18-2023 Cholesterol in LDL [Mass/Vol] 60 mg/dL 0-130 [facility] Serum or plasma urea nitroge n measurement (mass/volume)Ordered By: Corin Mariscal on 06-18-2023 Urea nitrogen [Mass/Vol] 19 mg/dL 7-18 [facility] Thin prep Papanicolaou smear with manual screeningOrdered By: Corin Mariscal on 06-18-2023 Thin prep Papanicolaou smear with manual screening 21 U/L 15-37 [facility] Thin prep Papanicolaou smear with manual screening 7 -15 [facility] 36on 06-07-2023 36 Refused, these medications were stopped [place] [id number] These were stopped i n the past and refused 06/05/[address] 06-06-2023 36 Rx refused per TE on 08/08/22. Thank you. [place] [id number] Do not send refill i n for Trazodone per TE 08-08-[address] 06-05-2023 36 Rx sent, some refuse d due to being stopped in the past. [place] [id number] Prescription Request : Last medication check: 02/15/23 Last physical exam: none Next scheduled appointment: 06/13/23 Last date of refill on this medication Pantoprazole 01/15/23 30 day 4 refills Rosuvastatin 01/15/23 30 day 4 refills Mag ox, folic acid, thiamine- all discontinued on 02/15/23 by CHANDLER [place] [address]on 05-07-2023 36 Rx sent. Follow up a s scheduled. [facility] 36 Rx sent [place] [id number] Prescription Request : Last medication check: 02/15/23 Last physical exam: 11/26/20 Next scheduled appointment: 06/13/23 Last date of refill on this medication dulera and potassium 11/17/22, exelon 02/09/23 [place] [id number] Prescription Request : Last medication check: 02-15-23 Last physical exam: 11-26-20 Next scheduled appointment: 06-13-23 Last date of refill on this medication 04-09-[address] 04-16-2023 36 Rx sent. Follow up a s scheduled. [place] [id number] Prescription Request : Last medication check: 02/15/23 Last physical exam: 11/26/20 Next scheduled appointment: 06/13/23 Last date of refill on this medication 10/31/22 #180 [address] 04-09-2023 36 Rx sent. Follow up a s scheduled. [place] [id number] Prescription Request : Last medication check: 02-15-23 Last physical exam: 11-26-20 Next scheduled appointment: 06-13-23 Last date of refill on this medication 03-13-[address] 03-19-2023 36 Prescription Request : Last medication check: 02/15/23 Last physical exam: none Next scheduled appointment: 06/13/23 Last date of refill on this medication 10/09/[address] 03-13-2023 36 Reviewed chart. Refi ll appropriate. RX sent. [place] [id number] Prescription Request : Last medication check: 02/15/23 Last physical exam: none Next scheduled appointment: 06/13/23 Last date of refill on this medication 02/19/[address] 03-12-2023 36 Okay, thank you [address] 03-09-2023 36 S: Patient spoke wit h [facility] nurse regarding nausea B: Onset of [...] pharmacy verified - Emilee Gamez. Paged provider client support professional via secure chat - Yessi Silver CNP Verbal order given to [facility] nurse for zofran 4 mg #12, [...] Reason for Disposition Unexplained nausea Protocols used: [id number] [place] [id number] Reviewed chart. Refi ll appropriate. RX sent. [place] [id number] Medication name: trospium (Sanctura Medication dosage: 20mg [...] prior to picking up the medication: N/A [place] [id number] 02-19-2023 36 Prescription Request : Last medication check: 02/15/23 Last physical exam: none Next scheduled appointment: 06/13/23 Last date of refill on this medication 01/22/[address] [facility] 36on 02-15-2023 36 Rx refused, this was requested to send this is not due till the middle of next week [place] [id number] Prescription Request : Last medication check: 12-25-22 Last physical exam: n/a Next scheduled appointment: 06/13/2023 Last date of refill on this medication 01/22/[address] [facility] Office Visiton 02-15-2023 Follow-up visit [id number] Alfie Hogan 1960 F Date Provider Department Center 02/15/2023 [id number] MORAN [facility] Family History Problem Relation Age of Onset Mental illness Mother Cancer Mother Comments: pancreatic Alcohol abuse Mother Depression Mother High Blood Pressure Father Cancer Father Comments: colon Alcohol abuse Father Hypertension Father Colon cancer Father Alcohol abuse Sister Alcohol abuse Brother Family Status - Relation Status Age at Mother Father Sister Brother Level of Service:06541 DE OFFICE/OUTPATIENT ESTABLISHED MOD MDM 30-39 MIN Reason for Visit and Comments: Abnl Movement [748] - TD - concerned that caused by some meds she is on stopping meds [Other] - Wanting to come off of some of the meds Breathing Problem [17] - Wears oxygen 25/12 Falls, Balance [890] - Still continue to have problems [facility] Progress Noteon 02-15-2023 Progress Note Controlled, continue rosuvastatin 40 mg daily [facility] Progress Note Partial remission, continue Prozac 40 mg [facility] Progress Note Partial remission, continue Prozac 40 mg daily [facility] Progress Note Stable, just a mild anemia at this time. [facility] Progress Note Encouraged increased exercise she says she has been going to the gym and even if she cannot get to the gym she should go walking every day. She is to avoid carbs at all cost. [facility] Progress Note Stable, continue Protonix 40 mg [facility] Progress Note Controlled, and in f act it is low we will have her stop her clonidine should go to 1 tablet daily for a week and then stop it. She is to monitor her blood pressure. Continue carvedilol 3.125 twice a day. [facility] Progress Note Continue oxygen main ly at night [facility] Progress Note Physical therapy con sult for strengthening and balance [facility] Progress Note Continue trazodone 1 50 mg nightly [facility] Progress Note 02/15/2023 Alfie Hogan (: 1960) [...] cost. 3. Chronic hypoxemic respiratory failure (CMS/HCC) ([facility]) Assessment & Plan: Continue oxygen mainly at night 4. Other pancytopenia (CMS/HCC) ([facility]) Assessment & Plan: Stable, just a mild [...] of major depressive disorder without prior episode ([facility]) Assessment & Plan: Partial remission, continue Prozac [...] note. Bernardino Moran MD 02/15/2023 3:[address] [facility] Progress Note Patient verified by last name and date of . [facility] 36on 02-14-2023 36 Left a message to re turn call to [facility] for appointment tomorrow. Please arrive 15 minutes early with your insurance card and photo ID. Thank you! [address] 02-09-2023 36 Rx sent [place] [id number] Prescription Request : Last medication check: 12-25-22 Last physical exam: n/a Next scheduled appointment: 02-12-23 Last date of refill on this medication 12-18-[address] 01-22-2023 36 Rx sent. Follow up a s scheduled. [place] [id number] Prescription Request : Last medication check: 12/25/22 Last physical exam: 06/07/22 Next scheduled appointment: 06/13/23 Last date of refill on this medication 12/25/22 for [address] 01-17-2023 36 Rx refused, this is too early [place] [id number] Prescription Request : Last medication check: 12/25/22 Last physical exam: 06/07/22 Next scheduled appointment: 06/13/23 Last date of refill on this medication 12/25/[address] 01-15-2023 36 Rx sent. Follow up a s scheduled. [place] [id number] Prescription Request : Last medication check: 12/25/22 Last physical exam: 06/07/22 Next scheduled appointment: 06/13/23 Last date of refill on this medication 12/15/22 28 day no refill sent on all meds [facility] Absolute lymphocyte countOrd ered By: Junior Salter on 01-04-2023 Lymphocytes Auto (Unsp spec) [#/Vol] 0.78 10*3/uL 0.83-4.51 [facility] Basophil percentageOrdered B y: Junior Salter on 01-04-2023 Basophils/100 WBC (Bld) 0.2 % 0-1 [facility] Chloride [Moles/Vol] 106 mmol/L 98-107 [facility] Eosinophils/100 WBC (Bld) 2.0 % 0-5 [facility] Glucose [Mass/Vol] 110 mg/dL 74-106 [facility] Comment on above: Fasting Glucose resu lt from 100 to 125 mg/dL suggests IMPAIRED HOMEOSTASIS per A.D.A. criteria. Neutrophils (Bld) [#/Vol] 2.8 10*3/uL 2.0-7.7 [facility] Neutrophils/100 WBC (Bld) 69.3 % 47-70 [facility] Potassium [Moles/Vol] 3.5 mmol/L 3.5-5.1 [facility] Sodium [Moles/Vol] 142 mmol/L 136-145 [facility] WBC (Bld) [#/Vol] 4.1 10*3/uL 4.4-11.0 [facility] Blood erythrocytes count (nu mber/volume)Ordered By: Junior Salter on 01-04-2023 RBC (Bld) [#/Vol] 4.38 10*6/uL 4.2-5.4 [facility] Blood hemoglobin measurement (mass/volume)Ordered By: Junior Salter on 01-04-2023 Hemoglobin (Bld) [Mass/Vol] 12.2 g/dL 12.0-15.0 [facility] Blood lymphocytes/100 leukoc ytesOrdered By: Junior Salter on 01-04-2023 Lymphocytes/100 WBC (Bld) 19.0 % 19-41 [facility] Blood monocytes/100 leukocyt esOrdered By: Juniorunique Salter on 01-04-2023 Monocytes/100 WBC (Bld) 9.0 % 0-10 [facility] Blood platelet mean volumeOr dered By: Junior Salter on 01-04-2023 Platelet mean volume (Bld) [Entitic vol] 9.2 fL 6.2-12.0 [facility] Determination of erythrocyte mean corpuscular volume (MCV)Ordered By: Junior Salter on 01-04-2023 MCV (RBC) [Entitic vol] 92.5 fL 81-99 [facility] Hematocrit Auto (Bld) [Volum e fraction]Ordered By: Juniorunique Salter on 01-04-2023 Hematocrit (Bld) [Volume fraction] 40.5 % 37-47 [facility] - Chemistry and C hemistry - challengeOrdered By: Junior Salter on 01-04-2023 CO2 [Moles/Vol] 32.0 mmol/L 21.0-32.0 [facility] Urea nitrogen/Creatinine [Mass ratio] 15.4 mg/mg 10-20 [facility] - Hematology and Cell countsOrdered By: Junior Salter on 01-04-2023 Erythrocyte distribution width (RBC) [Entitic vol] 42.9 fL 35.1-43.9 [facility] Erythrocyte distribution width (RBC) [Ratio] 12.7 % 11.6-14.6 [facility] Immature granulocytes/100 WBC (Bld) 0.500 % 0.0-0.9 [facility] Comment on above: IG% - Immature Granu locytes (promyelocytes, myelocytes and metamyelocytes) > 1% indicates that a LEFT SHIFT is Present. MCH (RBC) [Entitic mass] 27.9 pg 27.0-32.0 [facility] Nucleated RBC/100 WBC (Bld) [Ratio] 0 % 0-5 [facility] MCHC Auto (RBC) [Mass/Vol]Or dered By: Junior Salter on 01-04-2023 MCHC (RBC) [Mass/Vol] 30.1 g/dL 32-36 [facility] No Panel InformationOrdered By: Junior Salter on 01-04-2023 Estimated Creatinine Clearance Calc 50.94 ml/min [facility] Estimated GFR (MDRD) Amer 61 mL/min >60 [facility] Comment on above: GFR Calc Estimated GFR (MDRD) Non-Af Amer 50 mL/min >60 [facility] Comment on above: Non- GFR Calc Platelets bldOrdered By: Junior Salter on 01-04-2023 Platelets (Bld) [#/Vol] 121 10*3/uL 150-450 [facility] Serum or plasma calcium marisela urement (mass/volume)Ordered By: Junior Salter on 01-04-2023 Calcium [Mass/Vol] 9.4 mg/dL 8.5-10.1 [facility] Serum or plasma creatinine m easurement (mass/volume)Ordered By: Junior Salter on 01-04-2023 Creatinine [Mass/Vol] 1.17 mg/dL 0.55-1.02 [facility] Comment on above: The validity of the calculated GFR & GFRAA in patients over 70 years has not been determined. Clinical correlation is essential. Serum or plasma urea nitroge n measurement (mass/volume)Ordered By: Junior Salter on 01-04-2023 Urea nitrogen [Mass/Vol] 18 mg/dL 12-19 [facility] Thin prep Papanicolaou smear with manual screeningOrdered By: Junior Salter on 01-04-2023 Thin prep Papanicolaou smear with manual screening 4 5-15 [facility] 36on 12-25-2022 36 Prescription Request : Last medication check: 08/29/22 Last physical exam: 06/07/22 Next scheduled appointment: 12/25/22-today with Dr. Moran Last date of refill on this medication 11/27/[address] [facility] Progress Noteon 12-25-2022 Progress Note Improved, continue trospium 20 mg twice daily [facility] Progress Note Controlled, continue rosuvastatin [address] [facility] Progress Note Remission, continue fluoxetine [address] [facility] Progress Note Stable, currently on no medications for this [facility] Progress Note This is currently st able although we do not have any recent lab work or blood pressures [facility] Progress Note Control unknown, las t office visit 6 months ago her blood pressure was significantly elevated however on recheck it was significantly improved but still high, continue clonidine 0.1 mg tablets twice a day carvedilol 3.125 mg twice a day [facility] Progress Note Stable on oxygen, continue current settings. [facility] Progress Note Currently stable on Dulera and albuterol. [facility] Progress Note Stable on CPAP, uses it every night between 6 and 8 hours. [facility] Progress Note Stable on Namenda 5 mg twice a day and Exelon 1.[address] [facility] Progress Note Currently stable on trazodone 150 mg at bedtime [facility] Progress Note 12/25/2022 Alfie Hogan (: 1960) [...] 7. Ulcerative colitis without complications, unspecified location ([facility]) Assessment & Plan: Stable, currently on no medications for this 8. Current moderate episode of major depressive disorder without prior episode ([facility]) Assessment & Plan: Remission, continue fluoxetine 40 [...] stated that they are currently in the [facility]. If the patient is a minor, [...] note. Bernardino Moran MD 12/25/2022 4:[address] [facility] 12-21-2022 36 Mychart msg sent [facility] 12-18-2022 36 Rx sent. Follow up a s scheduled. [facility] 36 Prescription Request : Last medication check: 08/29/22 Last physical exam: 06/07/22 Next scheduled appointment: 12/25/22 Last date of refill on this medication 09/22/22 [place] [id number] 36 Message released to patient as written. [...] relayed to the patient from encounter: Yes [facility] 36 LM Terri Garcia, [employer] - [employer] 12/15/22 11:40 AM Note Rx sent with no refills. Per her visit with Dr. Moran back in August she was supposed to follow up again in 2 weeks. Please schedule follow up appointment [facility] 36 Rx sent with no refi lls. Per her visit with Dr. Moran back in August she was supposed to follow up again in 2 weeks. Please schedule follow up appointment. [facility] 36 Prescription Request : Last medication check: 08/29/22 Last physical exam: 06/07/22 Next scheduled appointment: 06/13/23 Last date of refill on this medication 06/30/22 and 07/03/22 30 days [address] 12-12-2022 36 Sent mychart msg [address] 11-27-2022 36 Already filled today. [facility] 36 Already sent today please refuse. [facility] 36 Rx sent. Follow up a s scheduled. [facility] 36 Prescription Request : Last medication check: 08/29/22 Last physical exam: 11/26/20 Next scheduled appointment: 12/13/22 Last date of refill on this medication 10/31/22 90 days [address] 11-17-2022 36 Prescription Request : Last medication check: 08/29/22 Last physical exam: 05/15/22 Next scheduled appointment: 12/13/22 Last date of refill on this medication 05/15/22 1 inhaler [address] [facility] 36 Prescription Request : Last medication check: 08/29/22 Last physical exam: 05/15/22 Next scheduled appointment: 12/13/22 Last date of refill on this medication sanctura 08/15/22 1 month 3 refills Potassium 06/07/22 1 month [address] [facility] Absolute lymphocyte countOrd ered By: Jose Parry on 07-16-2022 Lymphocytes Auto (Unsp spec) [#/Vol] 1.06 10*3/uL 0.83-4.51 [facility] Basophil percentageOrdered B y: Jose Parry on 07-16-2022 Basophil percentage 5-10 SEEN /hpf 0-5 [facility] Basophils/100 WBC (Bld) 0.2 % 0-1 [facility] Bilirubin [Mass/Vol] 1.30 mg/dL 0.20-1.00 [facility] Comment on above: For patients on eltr ombopag therapy, use of Dimension Collins TBIL is not recommended. Chloride [Moles/Vol] 101 mmol/L 98-107 [facility] Eosinophils/100 WBC (Bld) 0.2 % 0-5 [facility] Glucose [Mass/Vol] 105 mg/dL 74-106 [facility] Comment on above: Fasting Glucose resu lt from 100 to 125 mg/dL suggests IMPAIRED HOMEOSTASIS per A.D.A. criteria. Neutrophils (Bld) [#/Vol] 3.8 10*3/uL 2.0-7.7 [facility] Neutrophils/100 WBC (Bld) 71.0 % 47-70 [facility] Potassium [Moles/Vol] 4.4 mmol/L 3.5-5.1 [facility] Protein [Mass/Vol] 7.2 g/dL 6.4-8.2 [facility] Sodium [Moles/Vol] 135 mmol/L 136-145 [facility] WBC (Bld) [#/Vol] 5.4 10*3/uL 4.4-11.0 [facility] Bilirubin Test strip Ql (U)O rdered By: Jose Parry on 07-16-2022 Bilirubin Ql (U) Negative Negative [facility] Blood erythrocytes count (nu mber/volume)Ordered By: Jose Parry on 07-16-2022 RBC (Bld) [#/Vol] 4.69 10*6/uL 4.2-5.4 [facility] Blood hemoglobin measurement (mass/volume)Ordered By: Jose Parry on 07-16-2022 Hemoglobin (Bld) [Mass/Vol] 14.2 g/dL 12.0-15.0 [facility] Blood lymphocytes/100 leukoc ytesOrdered By: Jose Parry on 07-16-2022 Lymphocytes/100 WBC (Bld) 19.8 % 19-41 [facility] Blood monocytes/100 leukocyt esOrdered By: Jose Parry on 07-16-2022 Monocytes/100 WBC (Bld) 8.6 % 0-10 [facility] Blood platelet mean volumeOr dered By: Jose Parry on 07-16-2022 Platelet mean volume (Bld) [Entitic vol] 10.5 fL 6.2-12.0 [facility] Determination of erythrocyte mean corpuscular volume (MCV)Ordered By: Jose Parry on 07-16-2022 MCV (RBC) [Entitic vol] 96.8 fL 81-99 [facility] Direct bilirubinOrdered By: Jose Parry on 07-16-2022 Bilirubin.direct [Mass/Vol] 0.19 mg/dL 0.00-0.30 [facility] Hematocrit Auto (Bld) [Volum e fraction]Ordered By: Jose Parry on 07-16-2022 Hematocrit (Bld) [Volume fraction] 45.4 % 37-47 [facility] Influenza virus A and B and SARS-CoV-2 (COVID-19) Ag panel - Upper respiratory specimOrdered By: Jose Parry on 07-16-2022 SARS-CoV-2 (COVID-19) RNA MARY+probe Ql (Resp) [facility] Ketones Test strip Ql (U)Ord ered By: Jose Parry on 07-16-2022 Ketones Ql (U) Negative Negative [facility] Laboratory - Chemistry and C hemistry - challengeOrdered By: Jose Parry on 07-16-2022 ALP [Catalytic activity/Vol] 120 U/L 45-117 [facility] ALT [Catalytic activity/Vol] 30 U/L 13-56 [facility] CO2 [Moles/Vol] 23.0 mmol/L 21.0-32.0 [facility] Globulin (S) [Mass/Vol] 3.6 g/dL 2.2-4.2 [facility] Urea nitrogen/Creatinine [Mass ratio] 15.0 mg/mg 10-20 [facility] - Drug toxicology Ordered By: Jose Parry on 07-16-2022 Amphetamines Ql (U) Negative <1000 ng/mL [facility] Benzodiazepines Ql (U) Negative < 200 ng/mL [facility] Cannabinoids Screen Ql (U) Positive < 50 ng/mL [facility] Cocaine Ql (U) Negative < 300 ng/mL [facility] Opiates Ql (U) Negative < 300 ng/mL [facility] - Hematology and Cell countsOrdered By: Jose Parry on 07-16-2022 Erythrocyte distribution width (RBC) [Entitic vol] 49.5 fL 35.1-43.9 [facility] Erythrocyte distribution width (RBC) [Ratio] 14.0 % 11.6-14.6 [facility] Immature granulocytes/100 WBC (Bld) 0.200 % 0.0-0.9 [facility] Comment on above: IG% - Immature Granu locytes (promyelocytes, myelocytes and metamyelocytes) > 1% indicates that a LEFT SHIFT is Present. MCH (RBC) [Entitic mass] 30.3 pg 27.0-32.0 [facility] Nucleated RBC/100 WBC (Bld) [Ratio] 0 % 0-5 [facility] MCHC Auto (RBC) [Mass/Vol]Or dered By: Jose Parry on 07-16-2022 MCHC (RBC) [Mass/Vol] 31.3 g/dL 32-36 [facility] Mucus LM Ql (Urine sed)Order ed By: Jose Parry on 07-16-2022 Mucus Ql (Urine sed) 0 SEEN /hpf [facility] Nitrite Test strip Ql (U)Ord ered By: Jose Parry on 07-16-2022 Nitrite Ql (U) Negative Negative [facility] No Panel InformationOrdered By: Jose Parry on 07-16-2022 MDMA (Ecstasy) Screen Negative < 500 ng/mL [facility] Urine Barbiturates Screen Negative < 200 ng/mL [facility] Urine Drug Screen Comment [facility] Comment on above: CONFIRMATORY TESTING FOR [...] Methadone Screen Negative < 300 ng/mL [facility] Estimated Creatinine Clearance Calc 72.72 ml/min [facility] Estimated GFR (MDRD) Amer 94 mL/min >60 [facility] Comment on above: GFR Calc Estimated GFR (MDRD) Non-Af Amer 78 mL/min >60 [facility] Comment on above: Non- GFR Calc Ethyl Alcohol Level 119.0 mg/dL [facility] Comment on above: The serum:whole bloo d ethanol ratio is approximately 1.14and varies slightly with hematocrit. Medical Alcohol reference interval and critical value innon-tolerant individuals; 50 - 100 Impairment 100 Intoxication 100 - 250 Severe Poisoning 250 - 400 Deep/possible fatal coma Platelets bldOrdered By: Autumn Parry on 07-16-2022 Platelets (Bld) [#/Vol] 211 10*3/uL 150-450 [facility] Protein Test strip Ql (U)Ord ered By: Jose Parry on 07-16-2022 Protein Ql (U) 500 mg/dl Negative [facility] Serum or plasma albumin marisela urement (mass/volume)Ordered By: Jose Parry on 07-16-2022 Albumin [Mass/Vol] 3.6 g/dL 3.2-5.0 [facility] Serum or plasma calcium marisela urement (mass/volume)Ordered By: Jose Parry on 07-16-2022 Calcium [Mass/Vol] 9.2 mg/dL 8.5-10.1 [facility] Serum or plasma creatinine m easurement (mass/volume)Ordered By: Jose Parry on 07-16-2022 Creatinine [Mass/Vol] 0.80 mg/dL 0.55-1.02 [facility] Comment on above: The validity of the calculated GFR & GFRAA in patients over 70 years has not been determined. Clinical correlation is essential. Serum or plasma urea nitroge n measurement (mass/volume)Ordered By: Jose Parry on 07-16-2022 Urea nitrogen [Mass/Vol] 12 mg/dL 7-18 [facility] Squamous epithelial cells de tection in urine sediment by light microscopyOrdered By: Jose Parry on 07-16-2022 Epithelial cells.squamous LM Ql (Urine sed) 0-5 SEEN /hpf 5-10 [facility] Thin prep Papanicolaou smear with manual screeningOrdered By: Jose Parry on 07-16-2022 Thin prep Papanicolaou smear with manual screening 46 U/L 15-37 [facility] Thin prep Papanicolaou smear with manual screening 11 5-15 [facility] Urine blood detectionOrdered By: Jose Parry on 07-16-2022 RBC Ql (U) 50 /ul Negative [facility] RBC Ql (U) 0-5 SEEN /hpf 0-5 [facility] Urine clarityOrdered By: Autumn Parry on 07-16-2022 Clarity (U) Clear Clear [facility] Urine color determinationOrd ered By: Jose Parry on 07-16-2022 Color (U) Yellow Yellow [facility] Urine glucose detectionOrder ed By: Jose Parry on 07-16-2022 Glucose Ql (U) Normal mg/dl Normal [facility] Urine leukocyte esterase det ection by dipstickOrdered By: Jose Parry on 07-16-2022 Leukocyte esterase Test strip Ql (U) 25 /ul Negative [facility] Urine pHOrdered By: Jose fernández on 07-16-2022 pH (U) 6.5 [pH] 5.0 - 8.0 [facility] Urine phencyclidine (PCP) de tectionOrdered By: Jose Parry on 07-16-2022 Phencyclidine Ql (U) Negative < 25 ng/mL [facility] Urine sediment bacteria coun t by microscopy (number/high power field)Ordered By: Jose Parry on 07-16-2022 Bacteria LM.HPF (Urine sed) [#/Area] 0 /[HPF] None Seen [facility] Urine specific gravity measu rementOrdered By: Jose Parry on 07-16-2022 Specific gravity (U) [Rel density] 1.015 1.002-1.030 [facility] Urobilinogen Auto test strip Ql (U)Ordered By: Jose Parry on 07-16-2022 Urobilinogen Ql (U) 1 mg/dl Normal [facility] Urinalysis macro (dipstick) panel (U)on 06-07-2022 Bilirubin, UA Negative [facility] Blood, UA Negative [facility] Glucose, UA Negative [facility] Ketones, UA Negative [facility] Leukocytes, UA Negative [facility] Nitrite, UA Negative [facility] pH, UA 7.[address] [facility] Protein, UA >[address] [facility] [facility] Spec Grav, UA 1.[address] [facility] Urobilinogen, UA 0.2 [facility] Culture, urineOrdered By: Dr Layo Gordillo on 03-17-2022 Bacteria identified Cx Nom (U) Positive [facility] Absolute lymphocyte countOrd ered By: Dr. Gordillo on 03-15-2022 Lymphocytes Auto (Unsp spec) [#/Vol] 0.73 10*3/uL 0.83-4.51 [facility] Basophil percentageOrdered B y: Dr. Gordillo on 03-15-2022 Basophil percentage 25-50 SEEN /hpf 0-5 [facility] Basophils/100 WBC (Bld) 0.5 % 0-1 [facility] Bilirubin [Mass/Vol] 1.80 mg/dL 0.20-1.00 [facility] Comment on above: For patients on eltr ombopag therapy, use of Dimension Collins TBIL is not recommended. Chloride [Moles/Vol] 108 mmol/L 98-107 [facility] Eosinophils/100 WBC (Bld) 1.0 % 0-5 [facility] Glucose [Mass/Vol] 85 mg/dL 74-106 [facility] Neutrophils (Bld) [#/Vol] 3.0 10*3/uL 2.0-7.7 [facility] Neutrophils/100 WBC (Bld) 74.9 % 47-70 [facility] Potassium [Moles/Vol] 3.6 mmol/L 3.5-5.1 [facility] Protein [Mass/Vol] 6.4 g/dL 6.4-8.2 [facility] Sodium [Moles/Vol] 144 mmol/L 136-145 [facility] WBC (Bld) [#/Vol] 4.0 10*3/uL 4.4-11.0 [facility] Bilirubin Test strip Ql (U)O rdered By: Dr. Gordillo on 03-15-2022 Bilirubin Ql (U) 1 mg/dL Negative [facility] Comment on above: COLOR OF URINE MAY A FFECT DIPSTICK RESULTS. Blood erythrocytes count (nu mber/volume)Ordered By: Dr. Gordillo on 03-15-2022 RBC (Bld) [#/Vol] 4.77 10*6/uL 4.2-5.4 [facility] [place] Blood hemoglobin measurement (mass/volume)Ordered By: Dr. Gordillo on 03-15-2022 Hemoglobin (Bld) [Mass/Vol] 13.0 g/dL 12.0-15.0 [facility] Blood lymphocytes/100 leukoc ytesOrdered By: Dr. Gordillo on 03-15-2022 Lymphocytes/100 WBC (Bld) 18.3 % 19-41 [facility] Blood monocytes/100 leukocyt esOrdered By: Dr. Gordillo on 03-15-2022 Monocytes/100 WBC (Bld) 5.0 % 0-10 [facility] Blood platelet mean volumeOr dered By: Dr. Gordillo on 03-15-2022 Platelet mean volume (Bld) [Entitic vol] 10.1 fL 6.2-12.0 [facility] Determination of erythrocyte mean corpuscular volume (MCV)Ordered By: Dr. Gordillo on 03-15-2022 MCV (RBC) [Entitic vol] 90.4 fL 81-99 [facility] Hematocrit Auto (Bld) [Volum e fraction]Ordered By: Dr. Gordillo on 03-15-2022 Hematocrit (Bld) [Volume fraction] 43.1 % 37-47 [facility] Hyaline casts LM.LPF (Urine sed) [#/Area]Ordered By: Dr. Gordillo on 03-15-2022 Hyaline casts (Urine sed) [#/Area] 0 /[LPF] 0-5 [facility] Ketones Test strip Ql (U)Ord ered By: Dr. Gordillo on 03-15-2022 Ketones Ql (U) 5 mg/dl Negative [facility] Laboratory - Chemistry and C hemistry - challengeOrdered By: Dr. Gordillo on 03-15-2022 ALP [Catalytic activity/Vol] 133 U/L 45-117 [facility] ALT [Catalytic activity/Vol] 24 U/L 13-56 [facility] CO2 [Moles/Vol] 32.0 mmol/L 21.0-32.0 [facility] Globulin (S) [Mass/Vol] 2.8 g/dL 2.2-4.2 [facility] Urea nitrogen/Creatinine [Mass ratio] 10.4 mg/mg 10-20 [facility] Laboratory - Drug toxicology Ordered By: Dr. Gordillo on 03-15-2022 Amphetamines Ql (U) Negative <1000 ng/mL [facility] Benzodiazepines Ql (U) Negative < 200 ng/mL [facility] Cannabinoids Screen Ql (U) Positive < 50 ng/mL [facility] Cocaine Ql (U) Negative < 300 ng/mL [facility] Opiates Ql (U) Negative < 300 ng/mL [facility] Laboratory - Hematology and Cell countsOrdered By: Dr. Gordillo on 03-15-2022 Erythrocyte distribution width (RBC) [Entitic vol] 47.4 fL 35.1-43.9 [facility] Erythrocyte distribution width (RBC) [Ratio] 14.4 % 11.6-14.6 [facility] Immature granulocytes/100 WBC (Bld) 0.300 % 0.0-0.9 [facility] Comment on above: IG% - Immature Granu locytes (promyelocytes, myelocytes and metamyelocytes) > 1% indicates that a LEFT SHIFT is Present. MCH (RBC) [Entitic mass] 27.3 pg 27.0-32.0 [facility] Nucleated RBC/100 WBC (Bld) [Ratio] 0 % 0-5 [facility] MCHC Auto (RBC) [Mass/Vol]Or dered By: Dr. Gordillo on 03-15-2022 MCHC (RBC) [Mass/Vol] 30.2 g/dL 32-36 [facility] Mucus LM Ql (Urine sed)Order ed By: Dr. Gordillo on 03-15-2022 Mucus Ql (Urine sed) 2+ /hpf [facility] Nitrite Test strip Ql (U)Ord ered By: Dr. Gordillo on 03-15-2022 Nitrite Ql (U) Negative Negative [facility] No Panel InformationOrdered By: Dr. Gordillo on 03-15-2022 MDMA (Ecstasy) Screen Positive < 500 ng/mL [facility] Urine Barbiturates Screen Negative < 200 ng/mL [facility] Urine Drug Screen Comment [facility] Comment on above: CONFIRMATORY TESTING FOR [...] Methadone Screen Negative < 300 ng/mL [facility] Estimated Creatinine Clearance Calc 43.09 ml/min [facility] Estimated GFR (MDRD) Amer 51 mL/min >60 [facility] Comment on above: GFR Calc Estimated GFR (MDRD) Non-Af Amer 43 mL/min >60 [facility] Comment on above: Non- GFR Calc Ethyl Alcohol Level 5.0 mg/dL [facility] [place] Comment on above: The serum:whole bloo d ethanol ratio is approximately 1.14and varies slightly with hematocrit. Medical Alcohol reference interval and critical value innon-tolerant individuals; 50 - 100 Impairment 100 Intoxication 100 - 250 Severe Poisoning 250 - 400 Deep/possible fatal coma Platelets bldOrdered By: Dr. Gordillo on 03-15-2022 Platelets (Bld) [#/Vol] 131 10*3/uL 150-450 [facility] Protein Test strip Ql (U)Ord ered By: Dr. Gordillo on 03-15-2022 Protein Ql (U) 30 mg/dl Negative [facility] Serum or plasma albumin marisela urement (mass/volume)Ordered By: Dr. Gordillo on 03-15-2022 Albumin [Mass/Vol] 3.6 g/dL 3.2-5.0 [facility] Serum or plasma albumin/glob ulin mass ratioOrdered By: Dr. Gordillo on 03-15-2022 Albumin/Globulin [Mass ratio] 1.3 {ratio} 0.9-2.4 [facility] Serum or plasma calcium marisela urement (mass/volume)Ordered By: Dr. Gordillo on 03-15-2022 Calcium [Mass/Vol] 9.5 mg/dL 8.5-10.1 [facility] Serum or plasma creatinine m easurement (mass/volume)Ordered By: Dr. Gordillo on 03-15-2022 Creatinine [Mass/Vol] 1.35 mg/dL 0.55-1.02 [facility] Comment on above: The validity of the calculated GFR & GFRAA in patients over 70 years has not been determined. Clinical correlation is essential. Serum or plasma urea nitroge n measurement (mass/volume)Ordered By: Dr. Gordillo on 03-15-2022 Urea nitrogen [Mass/Vol] 14 mg/dL 7-18 [facility] Squamous epithelial cells de tection in urine sediment by light microscopyOrdered By: Dr. Gordillo on 03-15-2022 Epithelial cells.squamous LM Ql (Urine sed) 0-5 SEEN /hpf 5-10 [facility] Thin prep Papanicolaou smear with manual screeningOrdered By: Dr. Gordillo on 03-15-2022 Thin prep Papanicolaou smear with manual screening 30 U/L 15-37 [facility] Thin prep Papanicolaou smear with manual screening 4 5-15 [facility] Urine blood detectionOrdered By: Dr. Gordillo on 03-15-2022 RBC Ql (U) Negative Negative [facility] RBC Ql (U) 0 SEEN /hpf 0-5 [facility] Urine clarityOrdered By: Dr. Gordillo on 03-15-2022 Clarity (U) Sl. Cloudy Clear [facility] Urine color determinationOrd ered By: Dr. Gordillo on 03-15-2022 Color (U) Yellow Yellow [facility] Urine glucose detectionOrder ed By: Dr. Gordillo on 03-15-2022 Glucose Ql (U) Normal mg/dl Normal [facility] Urine leukocyte esterase det ection by dipstickOrdered By: Dr. Gordillo on 03-15-2022 Leukocyte esterase Test strip Ql (U) 500 /ul Negative [facility] Urine pHOrdered By: Dr. Josué lock on 03-15-2022 pH (U) 7.0 [pH] 5.0 - 8.0 [facility] Urine phencyclidine (PCP) de tectionOrdered By: Dr. Gordillo on 03-15-2022 Phencyclidine Ql (U) Negative < 25 ng/mL [facility] Urine sediment bacteria coun t by microscopy (number/high power field)Ordered By: Dr. Gordillo on 03-15-2022 Bacteria LM.HPF (Urine sed) [#/Area] 1 /[HPF] None Seen [facility] Urine specific gravity measu rementOrdered By: Dr. Gordillo on 03-15-2022 Specific gravity (U) [Rel density] 1.015 1.002-1.030 [facility] Urobilinogen Auto test strip Ql (U)Ordered By: Dr. Gordillo on 03-15-2022 Urobilinogen Ql (U) 1 mg/dl Normal [facility] [place] Basophil percentageon 2021 Chloride [Moles/Vol] 113 mmol/L 98-107 [facility] Work Phone: Glucose [Mass/Vol] 104 mg/dL 74-106 [facility] Work Phone: Comment on above: Fasting Glucose resu lt from 100 to 125 mg/dL suggests IMPAIRED HOMEOSTASIS per A.D.A. criteria. Potassium [Moles/Vol] 3.3 mmol/L 3.5-5.1 [facility] Work Phone: Sodium [Moles/Vol] 141 mmol/L 136-145 [facility] Work Phone: Iron measurement (mass/mass) on 12-31-2021 Iron (Unsp spec) [Mass/Mass] 61 ug/dL 50-170 [facility] Work Phone: Laboratory - Chemistry and C hemistry - challengeon 12-31-2021 CO2 [Moles/Vol] 26.0 mmol/L 21.0-32.0 [facility] Work Phone: Urea nitrogen/Creatinine [Mass ratio] 7.3 mg/mg 10-20 [facility] Work Phone: No Panel Informationon 12-31 Estimated Creatinine Clearance Calc 48.67 ml/min [facility] Work Phone: Estimated GFR (MDRD) Amer 57 mL/min >60 [facility] Work Phone: Comment on above: GFR Calc Estimated GFR (MDRD) Non-Af Amer 47 mL/min >60 [facility] Work Phone: Comment on above: Non- GFR Calc Total Iron Binding Capacity 222 ug/dL 250-450 [facility] Work Phone: Serum or plasma calcium marisela urement (mass/volume)on 12-31-2021 Calcium [Mass/Vol] 8.5 mg/dL 8.5-10.1 [facility] Work Phone: Serum or plasma creatinine m easurement (mass/volume)on 12-31-2021 Creatinine [Mass/Vol] 1.24 mg/dL 0.55-1.02 [facility] Work Phone: Comment on above: The validity of the calculated GFR & GFRAA in patients over 70 years has not been determined. Clinical correlation is essential. Serum or plasma iron saturat ion measurement (mass fraction)on 12-31-2021 Iron saturation [Mass fraction] 27.5 % 15.0-55.0 [facility] Work Phone: Serum or plasma urea nitroge n measurement (mass/volume)on 12-31-2021 Urea nitrogen [Mass/Vol] 9 mg/dL 7-18 [facility] Work Phone: Thin prep Papanicolaou smear with manual screeningon 12-31-2021 Thin prep Papanicolaou smear with manual screening 2 5-15 [facility] Work Phone: Absolute lymphocyte counton 12-30-2021 Lymphocytes Auto (Unsp spec) [#/Vol] 0.79 10*3/uL 0.83-4.51 [facility] Work Phone: Basophil percentageon 2021 Basophils/100 WBC (Bld) 0.3 % 0-1 [facility] Work Phone: Bilirubin [Mass/Vol] 1.40 mg/dL 0.20-1.00 [facility] Work Phone: Comment on above: For patients on eltr ombopag therapy, use of Dimension Collins TBIL is not recommended. Eosinophils/100 WBC (Bld) 1.3 % 0-5 [facility] Work Phone: Neutrophils (Bld) [#/Vol] 2.1 10*3/uL 2.0-7.7 [facility] Work Phone: Neutrophils/100 WBC (Bld) 67.0 % 47-70 [facility] Work Phone: Protein [Mass/Vol] 5.0 g/dL 6.4-8.2 [facility] Work Phone: WBC (Bld) [#/Vol] 3.2 10*3/uL 4.4-11.0 [facility] Work Phone: Blood erythrocytes count (nu mber/volume)on 12-30-2021 RBC (Bld) [#/Vol] 4.02 10*6/uL 4.2-5.4 [facility] [place] Work Phone: Blood hemoglobin measurement (mass/volume)on 12-30-2021 Hemoglobin (Bld) [Mass/Vol] 10.7 g/dL 12.0-15.0 [facility] Work Phone: Blood lymphocytes/100 leukoc yteson 12-30-2021 Lymphocytes/100 WBC (Bld) 24.8 % 19-41 [facility] Work Phone: Blood monocytes/100 leukocyt eson 12-30-2021 Monocytes/100 WBC (Bld) 6.3 % 0-10 [facility] Work Phone: Blood platelet mean volumeon 12-30-2021 Platelet mean volume (Bld) [Entitic vol] 10.2 fL 6.2-12.0 [facility] Work Phone: [phone] Determination of erythrocyte mean corpuscular volume (MCV)on 12-30-2021 MCV (RBC) [Entitic vol] 84.1 fL 81-99 [facility] Work Phone: Hematocrit Auto (Bld) [Volum e fraction]on 12-30-2021 Hematocrit (Bld) [Volume fraction] 33.8 % 37-47 [facility] Work Phone: Laboratory - Chemistry and C hemistry - challengeon 12-30-2021 ALP [Catalytic activity/Vol] 155 U/L 45-117 [facility] Work Phone: ALT [Catalytic activity/Vol] 17 U/L 13-56 [facility] Work Phone: [phone] Globulin (S) [Mass/Vol] 2.4 g/dL 2.2-4.2 [facility] Work Phone: Laboratory - Hematology and Cell countson 12-30-2021 Erythrocyte distribution width (RBC) [Entitic vol] 43.9 fL 35.1-43.9 [facility] Work Phone: Erythrocyte distribution width (RBC) [Ratio] 14.4 % 11.6-14.6 [facility] Work Phone: Immature granulocytes/100 WBC (Bld) 0.300 % 0.0-0.9 [facility] Work Phone: [phone] Comment on above: IG% - Immature Granu locytes (promyelocytes, myelocytes and metamyelocytes) > 1% indicates that a LEFT SHIFT is Present. MCH (RBC) [Entitic mass] 26.6 pg 27.0-32.0 [facility] Work Phone: [phone] Nucleated RBC/100 WBC (Bld) [Ratio] 0 % 0-5 [facility] Work Phone: MCHC Auto (RBC) [Mass/Vol]on 12-30-2021 MCHC (RBC) [Mass/Vol] 31.7 g/dL 32-36 [facility] Work Phone: [phone] Platelets bldon 12-30-2021 Platelets (Bld) [#/Vol] 89 10*3/uL 150-450 [facility] Work Phone: Serum or plasma albumin marisela urement (mass/volume)on 12-30-2021 Albumin [Mass/Vol] 2.6 g/dL 3.2-5.0 [facility] Work Phone: Serum or plasma albumin/glob ulin mass ratioon 12-30-2021 Albumin/Globulin [Mass ratio] 1.1 {ratio} 0.9-2.4 [facility] Work Phone: Thin prep Papanicolaou smear with manual screeningon 12-30-2021 Thin prep Papanicolaou smear with manual screening 21 U/L 15-37 [facility] Work Phone: Basophil percentageon 2021 Basophil percentage 25-50 SEEN /hpf 0-5 [facility] Work Phone: Basophil percentage 3.3 mg/dL 2.5-4.9 [facility] [place] Work Phone: Ammonia (P) [Moles/Vol] 19.0 umol/L 11-32 [facility] Work Phone: Bilirubin Test strip Ql (U)o n 12-29-2021 Bilirubin Ql (U) Negative Negative [facility] Work Phone: Direct bilirubinon 2 Bilirubin.direct [Mass/Vol] 0.56 mg/dL 0.00-0.30 [facility] Work Phone: INR in Blood by Coagulation assayon 12-29-2021 INR Coag (Bld) [Relative time] 1.1 {INR} [facility] Work Phone: Ketones Test strip Ql (U)on 12-29-2021 Ketones Ql (U) Negative Negative [facility] Work Phone: Laboratory - Chemistry and C hemistry - challengeon 12-29-2021 Magnesium [Mass/Vol] 2.7 mg/dL 1.6-2.6 [facility] Work Phone: Laboratory - Coagulationon 0 12-29-2021 PT Coag (PPP) [Time] 13.8 s 11.7-14.9 [facility] Work Phone: Laboratory - Drug toxicology on 12-29-2021 Amphetamines Ql (U) Negative <1000 ng/mL [facility] Work Phone: Benzodiazepines Ql (U) Negative < 200 ng/mL [facility] Work Phone: Cannabinoids Screen Ql (U) Negative < 50 ng/mL [facility] Work Phone: Cocaine Ql (U) Negative < 300 ng/mL [facility] Work Phone: Opiates Ql (U) Negative < 300 ng/mL [facility] Work Phone: Mucus LM Ql (Urine sed)on Mucus Ql (Urine sed) 0 SEEN /hpf [facility] Work Phone: Nitrite Test strip Ql (U)on 12-29-2021 Nitrite Ql (U) Negative Negative [facility] Work Phone: No Panel Informationon 12-29 MDMA (Ecstasy) Screen Negative < 500 ng/mL [facility] Work Phone: Urine Barbiturates Screen Negative < 200 ng/mL [facility] Work Phone: Urine Drug Screen Comment [facility] Work Phone: Comment on above: CONFIRMATORY [...] Methadone Screen Negative < 300 ng/mL [facility] Work Phone: Ethyl Alcohol Level 4.0 mg/dL [facility] [place] Work Phone: Comment on above: The serum:whole bloo d ethanol ratio is approximately 1.14and varies slightly with hematocrit. Medical Alcohol reference interval and critical value innon-tolerant individuals; 50 - 100 Impairment 100 Intoxication 100 - 250 Severe Poisoning 250 - 400 Deep/possible fatal coma Thyroid Stimulating Hormone (TSH) 1.10 uIU/mL 0.358-3.74 [facility] Work Phone: Protein Test strip Ql (U)on 12-29-2021 Protein Ql (U) 30 mg/dl Negative [facility] Work Phone: Squamous epithelial cells de tection in urine sediment by light microscopyon 12-29-2021 Epithelial cells.squamous LM Ql (Urine sed) 0-5 SEEN /hpf 5-10 [facility] Work Phone: Urine blood detectionon 12-03 RBC Ql (U) 25 /ul Negative [facility] Work Phone: RBC Ql (U) 0 SEEN /hpf 0-5 [facility] Work Phone: Urine clarityon 12-29-2021 Clarity (U) Clear Clear [facility] Work Phone: Urine color determinationon 12-29-2021 Color (U) Yellow Yellow [facility] Work Phone: Urine glucose detectionon Glucose Ql (U) Normal mg/dl Normal [facility] Work Phone: Urine leukocyte esterase det ection by dipstickon 12-29-2021 Leukocyte esterase Test strip Ql (U) 500 /ul Negative [facility] Work Phone: Urine pHon 12-29-2021 pH (U) 7.0 [pH] 5.0 - 8.0 [facility] Work Phone: [phone] Urine phencyclidine (PCP) de tectionon 12-29-2021 Phencyclidine Ql (U) Negative < 25 ng/mL [facility] Work Phone: [phone] Urine sediment bacteria coun t by microscopy (number/high power field)on 12-29-2021 Bacteria LM.HPF (Urine sed) [#/Area] RARE /hpf None Seen [facility] Work Phone: Urine specific gravity measu rementon 12-29-2021 Specific gravity (U) [Rel density] 1.005 1.002-1.030 [facility] Work Phone: Urobilinogen Auto test strip Ql (U)on 12-29-2021 Urobilinogen Ql (U) Normal mg/dl Normal [facility] Work Phone: Absolute lymphocyte counton 08-03-2021 Lymphocytes Auto (Unsp spec) [#/Vol] 0.95 10*3/uL 0.83-4.51 [facility] Work Phone: Basophil percentageon 2021 Basophils/100 WBC (Bld) 0.2 % 0-1 [facility] Work Phone: Chloride [Moles/Vol] 104 mmol/L 98-107 [facility] Work Phone: Eosinophils/100 WBC (Bld) 0.8 % 0-5 [facility] Work Phone: Glucose [Mass/Vol] 124 mg/dL 74-106 [facility] Work Phone: Comment on above: Fasting Glucose resu lt from 100 to 125 mg/dL suggests IMPAIRED HOMEOSTASIS per A.D.A. criteria. Neutrophils (Bld) [#/Vol] 3.5 10*3/uL 2.0-7.7 [facility] Work Phone: Neutrophils/100 WBC (Bld) 73.4 % 47-70 [facility] Work Phone: Potassium [Moles/Vol] 4.4 mmol/L 3.5-5.1 [facility] Work Phone: Sodium [Moles/Vol] 139 mmol/L 136-145 [facility] Work Phone: WBC (Bld) [#/Vol] 4.7 10*3/uL 4.4-11.0 [facility] Work Phone: Blood erythrocytes count (nu mber/volume)on 08-03-2021 RBC (Bld) [#/Vol] 4.12 10*6/uL 4.2-5.4 [facility] [place] Work Phone: Blood hemoglobin measurement (mass/volume)on 08-03-2021 Hemoglobin (Bld) [Mass/Vol] 11.4 g/dL 12.0-15.0 [facility] Work Phone: Blood lymphocytes/100 leukoc yteson 08-03-2021 Lymphocytes/100 WBC (Bld) 20.1 % 19-41 [facility] Work Phone: Blood monocytes/100 leukocyt eson 08-03-2021 Monocytes/100 WBC (Bld) 5.1 % 0-10 [facility] Work Phone: Blood platelet mean volumeon 08-03-2021 Platelet mean volume (Bld) [Entitic vol] 9.9 fL 6.2-12.0 [facility] Work Phone: Determination of erythrocyte mean corpuscular volume (MCV)on 08-03-2021 MCV (RBC) [Entitic vol] 90.3 fL 81-99 [facility] Work Phone: Hematocrit Auto (Bld) [Volum e fraction]on 08-03-2021 Hematocrit (Bld) [Volume fraction] 37.2 % 37-47 [facility] Work Phone: Laboratory - Chemistry and C hemistry - challengeon 08-03-2021 CO2 [Moles/Vol] 31.0 mmol/L 21.0-32.0 [facility] Work Phone: Urea nitrogen/Creatinine [Mass ratio] 12.7 mg/mg 10-20 [facility] Work Phone: Laboratory - Hematology and Cell countson 08-03-2021 Erythrocyte distribution width (RBC) [Entitic vol] 48.8 fL 35.1-43.9 [facility] Work Phone: Erythrocyte distribution width (RBC) [Ratio] 15.0 % 11.6-14.6 [facility] Work Phone: Immature granulocytes/100 WBC (Bld) 0.400 % 0.0-0.9 [facility] Work Phone: Comment on above: IG% - Immature Granu locytes (promyelocytes, myelocytes and metamyelocytes) > 1% indicates that a LEFT SHIFT is Present. MCH (RBC) [Entitic mass] 27.7 pg 27.0-32.0 [facility] Work Phone: Nucleated RBC/100 WBC (Bld) [Ratio] 0 % 0-5 [facility] Work Phone: MCHC Auto (RBC) [Mass/Vol]on 08-03-2021 MCHC (RBC) [Mass/Vol] 30.6 g/dL 32-36 [facility] Work Phone: No Panel Informationon 08-03 Estimated Creatinine Clearance Calc 49.92 ml/min [facility] Work Phone: Estimated GFR (MDRD) Amer 60 mL/min >60 [facility] Work Phone: Comment on above: GFR Calc Estimated GFR (MDRD) Non-Af Amer 50 mL/min >60 [facility] Work Phone: Comment on above: Non- GFR Calc Platelets bldon 08-03-2021 Platelets (Bld) [#/Vol] 195 10*3/uL 150-450 [facility] Work Phone: Serum or plasma calcium marisela urement (mass/volume)on 08-03-2021 Calcium [Mass/Vol] 9.4 mg/dL 8.5-10.1 [facility] Work Phone: Serum or plasma creatinine m easurement (mass/volume)on 08-03-2021 Creatinine [Mass/Vol] 1.18 mg/dL 0.55-1.02 [facility] Work Phone: Comment on above: The validity of the calculated GFR & GFRAA in patients over 70 years has not been determined. Clinical correlation is essential. Serum or plasma urea nitroge n measurement (mass/volume)on 08-03-2021 Urea nitrogen [Mass/Vol] 15 mg/dL 7-18 [facility] Work Phone: Thin prep Papanicolaou smear with manual screeningon 08-03-2021 Thin prep Papanicolaou smear with manual screening 4 5-15 [facility] Work Phone: Absolute lymphocyte counton 07-22-2021 Lymphocytes Auto (Unsp spec) [#/Vol] 0.49 10*3/uL 0.83-4.51 [facility] Work Phone: Basophil percentageon 2021 Basophils/100 WBC (Bld) 0.3 % 0-1 [facility] Work Phone: Chloride [Moles/Vol] 106 mmol/L 98-107 [facility] Work Phone: Eosinophils/100 WBC (Bld) 0.6 % 0-5 [facility] Work Phone: Glucose [Mass/Vol] 131 mg/dL 74-106 [facility] Work Phone: Comment on above: Fasting Glucose resu lt greater than or equal to 126 mg/dL suggests DIABETES MELLITUS per A.D.A. criteria. Neutrophils (Bld) [#/Vol] 2.6 10*3/uL 2.0-7.7 [facility] Work Phone: Neutrophils/100 WBC (Bld) 76.0 % 47-70 [facility] Work Phone: Potassium [Moles/Vol] 3.2 mmol/L 3.5-5.1 [facility] Work Phone: Sodium [Moles/Vol] 139 mmol/L 136-145 [facility] Work Phone: WBC (Bld) [#/Vol] 3.4 10*3/uL 4.4-11.0 [facility] Work Phone: [phone] Blood erythrocytes count (nu mber/volume)on 07-22-2021 RBC (Bld) [#/Vol] 3.66 10*6/uL 4.2-5.4 [facility] Work Phone: Blood hemoglobin measurement (mass/volume)on 07-22-2021 Hemoglobin (Bld) [Mass/Vol] 10.0 g/dL 12.0-15.0 [facility] Work Phone: Blood lymphocytes/100 leukoc yteson 07-22-2021 Lymphocytes/100 WBC (Bld) 14.3 % 19-41 [facility] Work Phone: Blood manual differential co mment interpretation (narrative result)on 07-22-2021 Manual differential comment [place] (Bld) [Interp] SCANNED [facility] Work Phone: Blood monocytes/100 leukocyt eson 07-22-2021 Monocytes/100 WBC (Bld) 8.5 % 0-10 [facility] Work Phone: Blood platelet mean volumeon 07-22-2021 Platelet mean volume (Bld) [Entitic vol] 9.6 fL 6.2-12.0 [facility] Work Phone: Determination of erythrocyte mean corpuscular volume (MCV)on 07-22-2021 MCV (RBC) [Entitic vol] 85.2 fL 81-99 [facility] Work Phone: Hematocrit Auto (Bld) [Volum e fraction]on 07-22-2021 Hematocrit (Bld) [Volume fraction] 31.2 % 37-47 [facility] Work Phone: Laboratory - Chemistry and C hemistry - challengeon 07-22-2021 CO2 [Moles/Vol] 29.0 mmol/L 21.0-32.0 [facility] Work Phone: Urea nitrogen/Creatinine [Mass ratio] 7.7 mg/mg 10-20 [facility] Work Phone: Laboratory - Hematology and Cell countson 07-22-2021 Erythrocyte distribution width (RBC) [Entitic vol] 43.5 fL 35.1-43.9 [facility] Work Phone: Erythrocyte distribution width (RBC) [Ratio] 14.1 % 11.6-14.6 [facility] Work Phone: Immature granulocytes/100 WBC (Bld) 0.300 % 0.0-0.9 [facility] Work Phone: Comment on above: IG% - Immature Granu locytes (promyelocytes, myelocytes and metamyelocytes) > 1% indicates that a LEFT SHIFT is Present. MCH (RBC) [Entitic mass] 27.3 pg 27.0-32.0 [facility] Work Phone: Nucleated RBC/100 WBC (Bld) [Ratio] 0 % 0-5 [facility] Work Phone: MCHC Auto (RBC) [Mass/Vol]on 07-22-2021 MCHC (RBC) [Mass/Vol] 32.1 g/dL 32-36 [facility] Work Phone: No Panel Informationon 07-22 SARS-CoV-2 Antigen (Rapid) [facility] Work Phone: Estimated Creatinine Clearance Calc 64.73 ml/min [facility] Work Phone: Estimated GFR (MDRD) Amer 82 mL/min >60 [facility] Work Phone: Comment on above: GFR Calc Estimated GFR (MDRD) Non-Af Amer 67 mL/min >60 [facility] Work Phone: Comment on above: Non- GFR Calc Ovalocyte detectionon 2021 Ovalocytes LM Ql (Bld) [facility] Work Phone: Platelets bldon 07-22-2021 Platelets (Bld) [#/Vol] 146 10*3/uL 150-450 [facility] Work Phone: Review by pathologiston 07-05 Pathologist review [place] (Unsp spec) [Interp] Reviewed [facility] Work Phone: Comment on above: Previous reported re sult: Helena jonas Edited by: MERON on 07/25/21:1241Leukopenia and Normocytic anemia.Clinical correlation necessary.Jose Palacios M.D. 07/25/21 AMENDED REPORT 07/25/21 1241 PATH REV previously reported as: Helena jonas Serum or plasma calcium marisela urement (mass/volume)on 07-22-2021 Calcium [Mass/Vol] 8.8 mg/dL 8.5-10.1 [facility] Work Phone: Serum or plasma creatinine m easurement (mass/volume)on 07-22-2021 Creatinine [Mass/Vol] 0.91 mg/dL 0.55-1.02 [facility] Work Phone: Comment on above: The validity of the calculated GFR & GFRAA in patients over 70 years has not been determined. Clinical correlation is essential. Serum or plasma urea nitroge n measurement (mass/volume)on 07-22-2021 Urea nitrogen [Mass/Vol] 7 mg/dL 7- [facility] Work Phone: Thin prep Papanicolaou smear with manual screeningon 07-22-2021 Thin prep Papanicolaou smear with manual screening 4 - [facility] Work Phone: Basophil percentageon 2021 Bilirubin [Mass/Vol] 1.40 mg/dL 0.20-1.00 [facility] Work Phone: Comment on above: For patients on eltr ombopag therapy, use of Dimension Collins TBIL is not recommended. Protein [Mass/Vol] 5.5 g/dL 6.4-8.2 [facility] Work Phone: Direct bilirubinon 2 Bilirubin.direct [Mass/Vol] 0.51 mg/dL 0.00-0.30 [facility] Work Phone: INR in Blood by Coagulation assayon 07-19-2021 INR Coag (Bld) [Relative time] 1.0 {INR} [facility] Work Phone: Laboratory - Chemistry and C hemistry - challengeon 07-19-2021 ALP [Catalytic activity/Vol] 121 U/L 45-117 [facility] Work Phone: ALT [Catalytic activity/Vol] 31 U/L 13-56 [facility] Work Phone: Globulin (S) [Mass/Vol] 2.9 g/dL 2.2-4.2 [facility] Work Phone: Laboratory - Coagulationon 0 07-19-2021 PT Coag (PPP) [Time] 12.9 s 11.7-14.9 [facility] Work Phone: Serum or plasma albumin marisela urement (mass/volume)on 07-19-2021 Albumin [Mass/Vol] 2.6 g/dL 3.2-5.0 [facility] Work Phone: Thin prep Papanicolaou smear with manual screeningon 07-19-2021 Thin prep Papanicolaou smear with manual screening 20 U/L 15-37 [facility] Work Phone: No Panel Informationon 07-17 Ethyl Alcohol Level < 3.0 mg/dL [facility] Work Phone: Comment on above: The serum:whole bloo d ethanol ratio is approximately 1.14and varies slightly with hematocrit. Medical Alcohol reference interval and critical value innon-tolerant individuals; 50 - 100 Impairment 100 Intoxication 100 - 250 Severe Poisoning 250 - 400 Deep/possible fatal coma Troponin I High Sensitivity 10 pg/mL 3.0-54.0 [facility] Work Phone: Comment on above: Please Note: New Cherry t Units and Gender Specific Reference Ranges. For more information see Policy Stat Procedure Collins High Sensitivity Troponin (TNIH) and attachments. CBC COMPLETE BLOOD COUNTon 07-03-2020 Erythrocyte distribution width (RBC) [Ratio] 14.9 % Normal 11.5-15.0 [facility] Comment on above: Order Comment: The A ptima SARS-CoV-2 assay is a nucleic acid amplification test intended for the qualitative detection of RNA from SARS-CoV-2 isolated and purified from nasopharyngeal (SDC TEACHER),oropharyngeal (OP), nasal swab, sputum, and bronchoalveolar lavage (BAL) specimens from patients with signs and symptoms of infection who are suspected of COVID-19. Results are for the identification of SARS-CoV-2 RNA. The SARS-CoV-2 RNA is generally detectable during the acute phase of infection. The Aptima SARS-CoV-2 Assay on the [employer] system is intended for use by laboratory personnel specifically instructed and trained in the operation of the [employer] system. The Aptima SARS-CoV-2 assay is [...] information. Performed By: #### 3 1792 #### [address] Hematocrit (Bld) [Volume fraction] 35.3 % Low 36.0-45.0 [facility] Comment on above: Order Comment: The A ptima SARS-CoV-2 assay is a nucleic acid amplification test intended for the qualitative detection of RNA from SARS-CoV-2 isolated and purified from nasopharyngeal (SDC TEACHER),oropharyngeal (OP), nasal swab, sputum, and bronchoalveolar lavage (BAL) specimens from patients with signs and symptoms of infection who are suspected of COVID-19. Results are for the identification of SARS-CoV-2 RNA. The SARS-CoV-2 RNA is generally detectable during the acute phase of infection. The Aptima SARS-CoV-2 Assay on the [employer] Fusion system is intended for use by laboratory personnel specifically instructed and trained in the operation of the [employer] Fusion system. The Aptima SARS-CoV-2 assay is [...] information. Performed By: #### 3 1792 #### [facility] [address] [place] [address], [facility] Hemoglobin (Bld) [Mass/Vol] 10.8 g/dL Low 12.0-15.0 [facility] Comment on above: Order Comment: The A ptima SARS-CoV-2 assay is a nucleic acid amplification test intended for the qualitative detection of RNA from SARS-CoV-2 isolated and purified from nasopharyngeal (SDC TEACHER),oropharyngeal (OP), nasal swab, sputum, and bronchoalveolar lavage (BAL) specimens from patients with signs and symptoms of infection who are suspected of COVID-19. Results are for the identification of SARS-CoV-2 RNA. The SARS-CoV-2 RNA is generally detectable during the acute phase of infection. The Aptima SARS-CoV-2 Assay on the [employer]Channel and [employer] Fusion system is intended for use by laboratory personnel specifically instructed and trained in the operation of the [employer] and [employer]Channel Fusion system. The Aptima SARS-CoV-2 assay is [...] information. Performed By: #### 3 1792 #### [facility] [address] [place] [address], [facility] MCH (RBC) [Entitic mass] 28.3 pg Normal 27.0-33.0 [facility] Comment on above: Order Comment: The A ptima SARS-CoV-2 assay is a nucleic acid amplification test intended for the qualitative detection of RNA from SARS-CoV-2 isolated and purified from nasopharyngeal (SDC TEACHER),oropharyngeal (OP), nasal swab, sputum, and bronchoalveolar lavage (BAL) specimens from patients with signs and symptoms of infection who are suspected of COVID-19. Results are for the identification of SARS-CoV-2 RNA. The SARS-CoV-2 RNA is generally detectable during the acute phase of infection. The Aptima SARS-CoV-2 Assay on the [employer] Fusion system is intended for use by laboratory personnel specifically instructed and trained in the operation of the [employer] Fusion system. The Aptima SARS-CoV-2 assay is [...] information. Performed By: #### 3 1792 #### [facility] [address] [facility]. [address] MCHC (RBC) [Mass/Vol] 30.6 g/dL Low 32.0-35.0 [facility] Comment on above: Order Comment: The A ptima SARS-CoV-2 assay is a nucleic acid amplification test intended for the qualitative detection of RNA from SARS-CoV-2 isolated and purified from nasopharyngeal (SDC TEACHER),oropharyngeal (OP), nasal swab, sputum, and bronchoalveolar lavage (BAL) specimens from patients with signs and symptoms of infection who are suspected of COVID-19. Results are for the identification of SARS-CoV-2 RNA. The SARS-CoV-2 RNA is generally detectable during the acute phase of infection. The Aptima SARS-CoV-2 Assay on the [employer] Fusion system is intended for use by laboratory personnel specifically instructed and trained in the operation of the [employer] and [employer] Fusion system. The Aptima SARS-CoV-2 assay is [...] information. Performed By: #### 3 1792 #### [facility] [address] [place] [address], [facility] MCV (RBC) [Entitic vol] 92.7 fL Normal 82.0-98.0 [facility] Comment on above: Order Comment: The A ptima SARS-CoV-2 assay is a nucleic acid amplification test intended for the qualitative detection of RNA from SARS-CoV-2 isolated and purified from nasopharyngeal (SDC TEACHER),oropharyngeal (OP), nasal swab, sputum, and bronchoalveolar lavage (BAL) specimens from patients with signs and symptoms of infection who are suspected of COVID-19. Results are for the identification of SARS-CoV-2 RNA. The SARS-CoV-2 RNA is generally detectable during the acute phase of infection. The Aptima SARS-CoV-2 Assay on the nChannel and [employer] Fusion system is intended for use by laboratory personnel specifically instructed and trained in the operation of the [employer] Fusion system. The Aptima SARS-CoV-2 assay is [...] information. Performed By: #### 3 1792 #### [facility] [address] [facility] [place] [address], [facility] Nucleated RBC/100 WBC (Bld) [Ratio] 0 % Normal 0-0 [facility] Comment on above: Order Comment: The A ptima SARS-CoV-2 assay is a nucleic acid amplification test intended for the qualitative detection of RNA from SARS-CoV-2 isolated and purified from nasopharyngeal (SDC TEACHER),oropharyngeal (OP), nasal swab, sputum, and bronchoalveolar lavage (BAL) specimens from patients with signs and symptoms of infection who are suspected of COVID-19. Results are for the identification of SARS-CoV-2 RNA. The SARS-CoV-2 RNA is generally detectable during the acute phase of infection. The Aptima SARS-CoV-2 Assay on the [employer] Fusion system is intended for use by laboratory personnel specifically instructed and trained in the operation of the [employer] and [employer] Fusion system. The Aptima SARS-CoV-2 assay is [...] information. Performed By: #### 3 1792 #### [facility] [address] [facility] [address] PLAT CNT 123 10*3/uL Low 150-400 [facility] Comment on above: Order Comment: The A ptima SARS-CoV-2 assay is a nucleic acid amplification test intended for the qualitative detection of RNA from SARS-CoV-2 isolated and purified from nasopharyngeal (SDC TEACHER),oropharyngeal (OP), nasal swab, sputum, and bronchoalveolar lavage (BAL) specimens from patients with signs and symptoms of infection who are suspected of COVID-19. Results are for the identification of SARS-CoV-2 RNA. The SARS-CoV-2 RNA is generally detectable during the acute phase of infection. The Aptima SARS-CoV-2 Assay on the [employer] Fusion system is intended for use by laboratory personnel specifically instructed and trained in the operation of the [employer] and [employer] Fusion system. The Aptima SARS-CoV-2 assay is [...] information. Performed By: #### 3 1792 #### [facility] [address] RBC (Bld) [#/Vol] 3.81 10*6/uL Normal 3.80-5.00 [facility] Comment on above: Order Comment: The A ptima SARS-CoV-2 assay is a nucleic acid amplification test intended for the qualitative detection of RNA from SARS-CoV-2 isolated and purified from nasopharyngeal (SDC TEACHER),oropharyngeal (OP), nasal swab, sputum, and bronchoalveolar lavage (BAL) specimens from patients with signs and symptoms of infection who are suspected of COVID-19. Results are for the identification of SARS-CoV-2 RNA. The SARS-CoV-2 RNA is generally detectable during the acute phase of infection. The Aptima SARS-CoV-2 Assay on the [employer] Fusion system is intended for use by laboratory personnel specifically instructed and trained in the operation of the [employer] and nChannel Fusion system. The Aptima SARS-CoV-2 assay is [...] information. Performed By: #### 3 1792 #### [facility] [address] WBC (Bld) [#/Vol] 2.25 10*3/uL Low 4.00-10.60 [facility] Comment on above: Order Comment: The A ptima SARS-CoV-2 assay is a nucleic acid amplification test intended for the qualitative detection of RNA from SARS-CoV-2 isolated and purified from nasopharyngeal (SDC TEACHER),oropharyngeal (OP), nasal swab, sputum, and bronchoalveolar lavage (BAL) specimens from patients with signs and symptoms of infection who are suspected of COVID-19. Results are for the identification of SARS-CoV-2 RNA. The SARS-CoV-2 RNA is generally detectable during the acute phase of infection. The Aptima SARS-CoV-2 Assay on the [employer] and [employer] Fusion system is intended for use by laboratory personnel specifically instructed and trained in the operation of the Wood[employer] and Wood[employer] Fusion system. The Aptima SARS-CoV-2 assay is [...] and epidemiological information. Performed By: #### 3 [id number] #### [facility] [address] APTTon 05-02-2021 aPTT Coag (Bld) [Time] 26.1 s Normal 25.0-35.0 [facility] Comment on above: Order Comment: RH [...] FOR THIS PURPOSE. Performed By: #### 3 2983 #### [facility] [address] BONE MARROW SCREENon 021 BONE MARROW SCR SEE BONE MARROW SPEC IAL REPORT FORM Normal [facility] Comment on above: Performed By: #### 3 2562 #### [facility] [address] CBC W/DIFFon 05-02-2021 ABS IMM GRANS 0.0 10*3/uL Normal 0.0-0.2 [facility] Comment on above: Order Comment: RH Performed By: #### 3 4303 #### [facility] [address] [place] [address], [facility] ABS NEUTROPHILS 1.1 10*3/uL Low 1.6-7.6 [facility] Comment on above: Order Comment: RH Performed By: #### 3 3 #### [facility] [address] [place] [address], [facility] Basophils (Bld) [#/Vol] 0.0 10*3/uL Normal 0.0-0.2 [facility] Comment on above: Order Comment: RH Performed By: #### 3 3 #### [facility] [address] [place] [address], [facility] Basophils/100 WBC (Bld) 0.5 % Normal 0.0-1.0 T [facility] Comment on above: Order Comment: RH Performed By: #### 3 3 #### [facility] [address] [place] [place] [address], [facility] Eosinophils (Bld) [#/Vol] 0.0 10*3/uL Normal 0.0-0.5 [facility] Comment on above: Order Comment: RH Performed By: #### 3 0313 #### [facility] [address] [place] [address], [facility] Eosinophils/100 WBC (Bld) 1.4 % Normal 0.0-6.0 [facility] Comment on above: Order Comment: RH Performed By: #### 3 3 #### [facility] [address] [place] [place] [address], [facility] Erythrocyte distribution width (RBC) [Ratio] 15.0 % Normal 11.5-15.0 [facility] Comment on above: Order Comment: RH Performed By: #### 3 3 #### [facility] [address] [place] [address], [facility] Hematocrit (Bld) [Volume fraction] 35.1 % Low 36.0-45.0 [facility] Comment on above: Order Comment: RH Performed By: #### 3 0313 #### [facility] [address] [facility] [place] [address], [facility] Hemoglobin (Bld) [Mass/Vol] 11.0 g/dL Low 12.0-15.0 [facility] Comment on above: Order Comment: RH Performed By: #### 3 0313 #### [facility] [address] [facility] [facility] [place] [address], [facility] IMMATURE GRANS 0.9 % Normal 0.0-1.0 [facility] Comment on above: Order Comment: RH Performed By: #### 3 0313 #### [facility] [address] [facility] [place] [address], [facility] Lymphocytes (Bld) [#/Vol] 0.7 10*3/uL Low 1.2-4.0 [facility] Comment on above: Order Comment: RH Performed By: #### 3 0313 #### [facility] [address] [facility] [place] [address], [facility] Lymphocytes/100 WBC (Bld) 33.3 % Normal 20.0-45.0 [facility] Comment on above: Order Comment: RH Performed By: #### 3 0313 #### [facility] [address] [facility] [facility] [place] [address], [facility] MCH (RBC) [Entitic mass] 29.0 pg Normal 27.0-33.0 [facility] Comment on above: Order Comment: RH Performed By: #### 3 0313 #### [facility] [address] [facility] [place] [address], [facility] MCHC (RBC) [Mass/Vol] 31.3 g/dL Low 32.0-35.0 [facility] Comment on above: Order Comment: RH Performed By: #### 3 3 #### [facility] [address] [place] [address], [facility] MCV (RBC) [Entitic vol] 92.6 fL Normal 82.0-98.0 [facility] Comment on above: Order Comment: RH Performed By: #### 3 0313 #### [facility] [address] [place] [address], [facility] Monocytes (Bld) [#/Vol] 0.3 10*3/uL Normal 0.1-1.0 [facility] Comment on above: Order Comment: RH Performed By: #### 3 0313 #### [facility] [address] [facility] [place] [address], [facility] MONOS 13.1 % High 5.0-12.0 [facility] Comment on above: Order Comment: RH Performed By: #### 3 3 #### [facility] [address] [facility] [place] [address], [facility] Neutrophils/100 WBC (Bld) 50.8 % Normal 40.0-72.0 [facility] Comment on above: Order Comment: RH Performed By: #### 3 3 #### [facility] [address] [facility] [place] [address], [facility] Nucleated RBC/100 WBC (Bld) [Ratio] 0 % Normal 0-0 [facility] Comment on above: Order Comment: RH Performed By: #### 3 3 #### [facility] [address] [facility] [facility] [place] [address], [facility] PLAT CNT 129 10*3/uL Low 150-400 [facility] Comment on above: Order Comment: RH Performed By: #### 3 0313 #### [facility] [address] [facility]. [place] [id number], [facility] RBC (Bld) [#/Vol] 3.79 10*6/uL Low 3.80-5.00 [facility] Comment on above: Order Comment: RH Performed By: #### 3 3 #### [facility] [address] WBC (Bld) [#/Vol] 2.13 10*3/uL Low 4.00-10.60 [facility] Comment on above: Order Comment: RH Performed By: #### 3 0313 #### [id number] [place] [place] [address] CT BIOPSY BONE MARROWon 11- CT BIOPSY BONE MARROW [facility] Department of Radiology [address] [place] [address] [id number] == Patient Name: ALFIE HOGAN : 1960 Sex: F Age: Race: White Pt. Location: [id number] Patient Status: I Ordered Date: 04/27/2021 11:30:00 [...] achievable. Electronically signed: Lui Smith. Transcribed by: [email or web address], User Resident: Electronically Signed by: LUI SMITH @ 05/02/2021 03:19 PM Normal [facility] Comment on above: Order Comment: Other , pancytopenia HEMATOLOG[facility] RESULT Results faxed to ordering physician and sent to HIM Normal [facility] Comment on above: Result Comment: [facility] performed [facility] * [address] [place] [address], [address] * [place], [place] * [phone] Clarifier: Robert Duval M.D. RESULTS FAXED TO [phone] Performed By: #### 3 1839 #### [address] PROTHROMBIN TIMEon 1 INR Coag (PPP) [Relative time] 0.80 {INR} Low 0.91-1.16 [facility] Comment on above: Order Comment: No: [...] CHEST 1995;[id number]. Performed By: #### 1 0070, [id number] #### [facility] [address] [facility]. [address] PT Coag (PPP) [Time] 11.1 s Low 12.3-14.8 [facility] Comment on above: Order Comment: No: D o not add to previous draw Result Comment: ALL RESULTS MUST BE INTERPRETED WITH RESPECT TO BLOOD DRAWING ARTIFACT OR DILUTION ERROR OF ANTICOAGULANT AT THE TIME OF SAMPLING. Performed By: #### 1 0070, [id number] #### [facility] 3000 [facility]. [address] *SARS-CoV-2 COVID-19on 04-30 SARS-CoV-2 (COVID-19) RNA MARY+probe Ql (Unsp spec) Not detected Normal Not Detected [facility] Comment on above: Order Comment: The A ptima SARS-CoV-2 assay is a nucleic acid amplification test intended for the qualitative detection of RNA from SARS-CoV-2 isolated and purified from nasopharyngeal (SDC TEACHER),oropharyngeal (OP), nasal swab, sputum, and bronchoalveolar lavage (BAL) specimens from patients with signs and symptoms of infection who are suspected of COVID-19. Results are for the identification of SARS-CoV-2 RNA. The SARS-CoV-2 RNA is generally detectable during the acute phase of infection. The Aptima SARS-CoV-2 Assay on the nChannel and AkeLex system is intended for use by laboratory personnel specifically instructed and trained in the operation of the [place] and nChannel Fusion system. The Aptima SARS-CoV-2 assay is [...] information. Performed By: #### 3 1792 #### [facility] [address] *SARS-CoV-2 COVID-19on 04-28 SARS-CoV-2 (COVID-19) RNA MARY+probe Ql (Unsp spec) Not detected Normal Not Detected [facility] Comment on above: Order Comment: The A ptima SARS-CoV-2 assay is a nucleic acid amplification test intended for the qualitative detection of RNA from SARS-CoV-2 isolated and purified from nasopharyngeal (SDC TEACHER),oropharyngeal (OP), nasal swab, sputum, and bronchoalveolar lavage (BAL) specimens from patients with signs and symptoms of infection who are suspected of COVID-19. Results are for the identification of SARS-CoV-2 RNA. The SARS-CoV-2 RNA is generally detectable during the acute phase of infection. The Aptima SARS-CoV-2 Assay on the nChannel and nChannel Fusion system is intended for use by laboratory personnel specifically instructed and trained in the operation of the nChannel and nChannel Fusion system. The Aptima SARS-CoV-2 assay is [...] information. Performed By: #### 3 1792 #### [facility] [address] [facility] [address] CBC COMPLETE BLOOD COUNTon 06-28-2020 Erythrocyte distribution width (RBC) [Ratio] 15.1 % High 11.5-15.0 [facility] Comment on above: Order Comment: No: D o not add to previous draw Performed By: #### 1 69, [id number] #### [facility] [address] [place] [address], [facility] Hematocrit (Bld) [Volume fraction] 32.9 % Low 36.0-45.0 [facility] Comment on above: Order Comment: No: D o not add to previous draw Performed By: #### 1 69, [id number] #### [facility] [address] [facility] [place] [address], [facility] Hemoglobin (Bld) [Mass/Vol] 10.1 g/dL Low 12.0-15.0 [facility] Comment on above: Order Comment: No: D o not add to previous draw Performed By: #### 1 69, [id number] #### [facility] [address] [place] [address], [facility] MCH (RBC) [Entitic mass] 28.5 pg Normal 27.0-33.0 [facility] Comment on above: Order Comment: No: D o not add to previous draw Performed By: #### 1 69, [id number] #### [facility] [address] [place] [address], [facility] MCHC (RBC) [Mass/Vol] 30.7 g/dL Low 32.0-35.0 [facility] Comment on above: Order Comment: No: D o not add to previous draw Performed By: #### 1 69, [id number] #### [facility] [address] [place] [address], [facility] MCV (RBC) [Entitic vol] 92.9 fL Normal 82.0-98.0 [facility] Comment on above: Order Comment: No: D o not add to previous draw Performed By: #### 1 69, [id number] #### [facility] [address] [facility] [place] [address], [facility] Nucleated RBC/100 WBC (Bld) [Ratio] 0 % Normal 0-0 [facility] Comment on above: Order Comment: No: D o not add to previous draw Performed By: #### 1 69, [id number] #### [facility] [address] [facility] [place] [address], [facility] PLAT CNT 131 10*3/uL Low 150-400 [facility] Comment on above: Order Comment: No: D o not add to previous draw Performed By: #### 1 69, [id number] #### [facility] [address] [place] [address], [facility] RBC (Bld) [#/Vol] 3.54 10*6/uL Low 3.80-5.00 [facility] Comment on above: Order Comment: No: D o not add to previous draw Performed By: #### 1 69, [id number] #### [facility] [address] [facility] [place] [address], [facility] WBC (Bld) [#/Vol] 1.68 10*3/uL Low 4.00-10.60 [facility] Comment on above: Order Comment: No: D o not add to previous draw Performed By: #### 1 69, [id number] #### [facility] [address] PROCALCITONINon 04-28-2021 PROCALCITONIN 0.06 ng/mL Normal 0.00-0.10 [facility] Comment on above: Order Comment: No: [...] initial PCT<0.5ng/mL Performed By: #### 1 0070, [id number] #### [facility] 3000 [facility]. [address] ANAon 04-27-2021 ZOYA PATTERN NUCLEOLAR Normal [facility] Comment on above: Order Comment: No: [...] medical authority. Performed By: #### 1 0070, [id number] #### [facility] [address] [place] [address], [facility] ZOYA SCREEN 1:80 Abnormal <1:40,1:40 [facility] Comment on above: Order Comment: No: D o not add to previous draw Result Comment: Test performed using SHERON IFA ZOYA Hep-2 Test, a pre-standardized assay designed for the qualitative and semi-quantitative detection of antinuclear antibodies. Performed By: #### 1 0070, [id number] #### [facility] [address] [place] [address], [facility] CBC COMPLETE BLOOD COUNTon 06-27-2020 Erythrocyte distribution width (RBC) [Ratio] 15.3 % High 11.5-15.0 [facility] Comment on above: Order Comment: RH Performed By: #### 3 3 #### [facility] [address] [place] [address], [facility] Hematocrit (Bld) [Volume fraction] 32.1 % Low 36.0-45.0 [facility] Comment on above: Order Comment: RH Performed By: #### 3 3 #### [facility] [address] [place] [address], [facility] Hemoglobin (Bld) [Mass/Vol] 9.5 g/dL Low 12.0-15.0 [facility] Comment on above: Order Comment: RH Performed By: #### 3 3 #### [facility] [address] [place] [address], [facility] MCH (RBC) [Entitic mass] 28.2 pg Normal 27.0-33.0 [facility] Comment on above: Order Comment: RH Performed By: #### 3 3 #### [facility] [address] [place] [address], [facility] MCHC (RBC) [Mass/Vol] 29.6 g/dL Low 32.0-35.0 [facility] Comment on above: Order Comment: RH Performed By: #### 3 3 #### [facility] [address] [facility] [place] [place] [address], [facility] MCV (RBC) [Entitic vol] 95.3 fL Normal 82.0-98.0 [facility] Comment on above: Order Comment: RH Performed By: #### 3 3 #### [facility] [address] [place], [address] Nucleated RBC/100 WBC (Bld) [Ratio] 0 % Normal 0-0 [facility] Comment on above: Order Comment: RH Performed By: #### 3 0313 #### [facility] [address] [place] [address], [facility] PLAT CNT 102 10*3/uL Low 150-400 [facility] Comment on above: Order Comment: RH Performed By: #### 3 0313 #### [facility] [address] [place] [address], [facility] RBC (Bld) [#/Vol] 3.37 10*6/uL Low 3.80-5.00 [facility] Comment on above: Order Comment: RH Performed By: #### 3 0313 #### [facility] [address] [place] [address], [facility] WBC (Bld) [#/Vol] 1.45 10*3/uL Critically low 4.00-10.60 T [facility] Comment on above: Order Comment: RH Result Comment: RESU LTS CHECKED AND CALLED. ACCURATELY READ BACK BY SHAYY VERA RN AT 0538 Performed By: #### 3 0313 #### [facility] [address] CBC W/DIFFon 04-27-2021 ABS IMM GRANS 0.0 10*3/uL Normal 0.0-0.2 [facility] Comment on above: Order Comment: The A ptima SARS-CoV-2 assay is a nucleic acid amplification test intended for the qualitative detection of RNA from SARS-CoV-2 isolated and purified from nasopharyngeal (SDC TEACHER),oropharyngeal (OP), nasal swab, sputum, and bronchoalveolar lavage (BAL) specimens from patients with signs and symptoms of infection who are suspected of COVID-19. Results are for the identification of SARS-CoV-2 RNA. The SARS-CoV-2 RNA is generally detectable during the acute phase of infection. The Aptima SARS-CoV-2 Assay on the nChannel and AkeLex system is intended for use by laboratory personnel specifically instructed and trained in the operation of the [place] and [place] Fusion system. The Aptima SARS-CoV-2 assay is [...] information. Performed By: #### 3 1792 #### [facility] [address] [facility] [place] [address], [facility] ABS NEUTROPHILS 1.1 10*3/uL Low 1.6-7.6 [facility] Comment on above: Order Comment: The A ptima SARS-CoV-2 assay is a nucleic acid amplification test intended for the qualitative detection of RNA from SARS-CoV-2 isolated and purified from nasopharyngeal (SDC TEACHER),oropharyngeal (OP), nasal swab, sputum, and bronchoalveolar lavage (BAL) specimens from patients with signs and symptoms of infection who are suspected of COVID-19. Results are for the identification of SARS-CoV-2 RNA. The SARS-CoV-2 RNA is generally detectable during the acute phase of infection. The Aptima SARS-CoV-2 Assay on the [place] and [place] Fusion system is intended for use by laboratory personnel specifically instructed and trained in the operation of the [place] and [employer] Fusion system. The Aptima SARS-CoV-2 assay is [...] information. Performed By: #### 3 1792 #### [facility] [address] [place] [address], [facility] Basophils (Bld) [#/Vol] 0.0 10*3/uL Normal 0.0-0.2 [facility] Comment on above: Order Comment: The A ptima SARS-CoV-2 assay is a nucleic acid amplification test intended for the qualitative detection of RNA from SARS-CoV-2 isolated and purified from nasopharyngeal (SDC TEACHER),oropharyngeal (OP), nasal swab, sputum, and bronchoalveolar lavage (BAL) specimens from patients with signs and symptoms of infection who are suspected of COVID-19. Results are for the identification of SARS-CoV-2 RNA. The SARS-CoV-2 RNA is generally detectable during the acute phase of infection. The Aptima SARS-CoV-2 Assay on the [place] and [employer] Fusion system is intended for use by laboratory personnel specifically instructed and trained in the operation of the [place] and [employer] Fusion system. The Aptima SARS-CoV-2 assay is [...] information. Performed By: #### 3 1792 #### [address] Basophils/100 WBC (Bld) 0.0 % Normal 0.0-1.0 T [facility] Comment on above: Order Comment: The A ptima SARS-CoV-2 assay is a nucleic acid amplification test intended for the qualitative detection of RNA from SARS-CoV-2 isolated and purified from nasopharyngeal (SDC TEACHER),oropharyngeal (OP), nasal swab, sputum, and bronchoalveolar lavage (BAL) specimens from patients with signs and symptoms of infection who are suspected of COVID-19. Results are for the identification of SARS-CoV-2 RNA. The SARS-CoV-2 RNA is generally detectable during the acute phase of infection. The Aptima SARS-CoV-2 Assay on the [place] and [employer] Fusion system is intended for use by laboratory personnel specifically instructed and trained in the operation of the [place] and [employer] Fusion system. The Aptima SARS-CoV-2 assay is [...] information. Performed By: #### 3 1792 #### [facility] [address] Eosinophils (Bld) [#/Vol] 0.0 10*3/uL Normal 0.0-0.5 [facility] Comment on above: Order Comment: The A ptima SARS-CoV-2 assay is a nucleic acid amplification test intended for the qualitative detection of RNA from SARS-CoV-2 isolated and purified from nasopharyngeal (SDC TEACHER),oropharyngeal (OP), nasal swab, sputum, and bronchoalveolar lavage (BAL) specimens from patients with signs and symptoms of infection who are suspected of COVID-19. Results are for the identification of SARS-CoV-2 RNA. The SARS-CoV-2 RNA is generally detectable during the acute phase of infection. The Aptima SARS-CoV-2 Assay on the nChannel and [place] Fusion system is intended for use by laboratory personnel specifically instructed and trained in the operation of the [place] and [employer] Fusion system. The Aptima SARS-CoV-2 assay is [...] information. Performed By: #### 3 1792 #### [facility] [address] [facility] Eosinophils/100 WBC (Bld) 2.2 % Normal 0.0-6.0 [facility] Comment on above: Order Comment: The A ptima SARS-CoV-2 assay is a nucleic acid amplification test intended for the qualitative detection of RNA from SARS-CoV-2 isolated and purified from nasopharyngeal (SDC TEACHER),oropharyngeal (OP), nasal swab, sputum, and bronchoalveolar lavage (BAL) specimens from patients with signs and symptoms of infection who are suspected of COVID-19. Results are for the identification of SARS-CoV-2 RNA. The SARS-CoV-2 RNA is generally detectable during the acute phase of infection. The Aptima SARS-CoV-2 Assay on the [place] and [employer] Fusion system is intended for use by laboratory personnel specifically instructed and trained in the operation of the [place] and [employer] Fusion system. The Aptima SARS-CoV-2 assay is [...] information. Performed By: #### 3 1792 #### [address] Erythrocyte distribution width (RBC) [Ratio] 15.4 % High 11.5-15.0 [facility] Comment on above: Order Comment: The A ptima SARS-CoV-2 assay is a nucleic acid amplification test intended for the qualitative detection of RNA from SARS-CoV-2 isolated and purified from nasopharyngeal (SDC TEACHER),oropharyngeal (OP), nasal swab, sputum, and bronchoalveolar lavage (BAL) specimens from patients with signs and symptoms of infection who are suspected of COVID-19. Results are for the identification of SARS-CoV-2 RNA. The SARS-CoV-2 RNA is generally detectable during the acute phase of infection. The Aptima SARS-CoV-2 Assay on the [place] and [employer] Fusion system is intended for use by laboratory personnel specifically instructed and trained in the operation of the [place] and [employer] Fusion system. The Aptima SARS-CoV-2 assay is [...] information. Performed By: #### 3 1792 #### [facility] [address] [place] [address], [facility] Hematocrit (Bld) [Volume fraction] 32.0 % Low 36.0-45.0 [facility] Comment on above: Order Comment: The A ptima SARS-CoV-2 assay is a nucleic acid amplification test intended for the qualitative detection of RNA from SARS-CoV-2 isolated and purified from nasopharyngeal (SDC TEACHER),oropharyngeal (OP), nasal swab, sputum, and bronchoalveolar lavage (BAL) specimens from patients with signs and symptoms of infection who are suspected of COVID-19. Results are for the identification of SARS-CoV-2 RNA. The SARS-CoV-2 RNA is generally detectable during the acute phase of infection. The Aptima SARS-CoV-2 Assay on the nChannel and [place] Fusion system is intended for use by laboratory personnel specifically instructed and trained in the operation of the [place] and [employer] Fusion system. The Aptima SARS-CoV-2 assay is [...] information. Performed By: #### 3 1792 #### [facility] [address] [facility] [place] [address], [facility] Hemoglobin (Bld) [Mass/Vol] 9.8 g/dL Low 12.0-15.0 [facility] Comment on above: Order Comment: The A ptima SARS-CoV-2 assay is a nucleic acid amplification test intended for the qualitative detection of RNA from SARS-CoV-2 isolated and purified from nasopharyngeal (SDC TEACHER),oropharyngeal (OP), nasal swab, sputum, and bronchoalveolar lavage (BAL) specimens from patients with signs and symptoms of infection who are suspected of COVID-19. Results are for the identification of SARS-CoV-2 RNA. The SARS-CoV-2 RNA is generally detectable during the acute phase of infection. The Aptima SARS-CoV-2 Assay on the [place] and [employer] Fusion system is intended for use by laboratory personnel specifically instructed and trained in the operation of the [place] and [employer] Fusion system. The Aptima SARS-CoV-2 assay is [...] information. Performed By: #### 3 1792 #### [facility] [address] IMMATURE GRANS 0.0 % Normal 0.0-1.0 [facility] Comment on above: Order Comment: The A ptima SARS-CoV-2 assay is a nucleic acid amplification test intended for the qualitative detection of RNA from SARS-CoV-2 isolated and purified from nasopharyngeal (SDC TEACHER),oropharyngeal (OP), nasal swab, sputum, and bronchoalveolar lavage (BAL) specimens from patients with signs and symptoms of infection who are suspected of COVID-19. Results are for the identification of SARS-CoV-2 RNA. The SARS-CoV-2 RNA is generally detectable during the acute phase of infection. The Aptima SARS-CoV-2 Assay on the [place] and [employer] Fusion system is intended for use by laboratory personnel specifically instructed and trained in the operation of the [place] and [employer] Fusion system. The Aptima SARS-CoV-2 assay is [...] information. Performed By: #### 3 1792 #### [facility] [address] Lymphocytes (Bld) [#/Vol] 0.5 10*3/uL Low 1.2-4.0 [facility] Comment on above: Order Comment: The A ptima SARS-CoV-2 assay is a nucleic acid amplification test intended for the qualitative detection of RNA from SARS-CoV-2 isolated and purified from nasopharyngeal (SDC TEACHER),oropharyngeal (OP), nasal swab, sputum, and bronchoalveolar lavage (BAL) specimens from patients with signs and symptoms of infection who are suspected of COVID-19. Results are for the identification of SARS-CoV-2 RNA. The SARS-CoV-2 RNA is generally detectable during the acute phase of infection. The Aptima SARS-CoV-2 Assay on the nChannel and [place] Fusion system is intended for use by laboratory personnel specifically instructed and trained in the operation of the [place] and [employer] Fusion system. The Aptima SARS-CoV-2 assay is [...] information. Performed By: #### 3 1792 #### [facility] [address] [facility] [place] [place] [address], [facility] Lymphocytes/100 WBC (Bld) 25.1 % Normal 20.0-45.0 [facility] Comment on above: Order Comment: The A ptima SARS-CoV-2 assay is a nucleic acid amplification test intended for the qualitative detection of RNA from SARS-CoV-2 isolated and purified from nasopharyngeal (SDC TEACHER),oropharyngeal (OP), nasal swab, sputum, and bronchoalveolar lavage (BAL) specimens from patients with signs and symptoms of infection who are suspected of COVID-19. Results are for the identification of SARS-CoV-2 RNA. The SARS-CoV-2 RNA is generally detectable during the acute phase of infection. The Aptima SARS-CoV-2 Assay on the [employer] and [employer] Fusion system is intended for use by laboratory personnel specifically instructed and trained in the operation of the [employer] and [employer] Fusion system. The Aptima SARS-CoV-2 assay is [...] information. Performed By: #### 3 1792 #### [address] MCH (RBC) [Entitic mass] 28.7 pg Normal 27.0-33.0 [facility] Comment on above: Order Comment: The A ptima SARS-CoV-2 assay is a nucleic acid amplification test intended for the qualitative detection of RNA from SARS-CoV-2 isolated and purified from nasopharyngeal (SDC TEACHER),oropharyngeal (OP), nasal swab, sputum, and bronchoalveolar lavage (BAL) specimens from patients with signs and symptoms of infection who are suspected of COVID-19. Results are for the identification of SARS-CoV-2 RNA. The SARS-CoV-2 RNA is generally detectable during the acute phase of infection. The Aptima SARS-CoV-2 Assay on the [employer] and [employer] Fusion system is intended for use by laboratory personnel specifically instructed and trained in the operation of the [employer] and [employer] Fusion system. The Aptima SARS-CoV-2 assay is [...] information. Performed By: #### 3 1792 #### [facility] [address] MCHC (RBC) [Mass/Vol] 30.6 g/dL Low 32.0-35.0 [facility] Comment on above: Order Comment: The A ptima SARS-CoV-2 assay is a nucleic acid amplification test intended for the qualitative detection of RNA from SARS-CoV-2 isolated and purified from nasopharyngeal (SDC TEACHER),oropharyngeal (OP), nasal swab, sputum, and bronchoalveolar lavage (BAL) specimens from patients with signs and symptoms of infection who are suspected of COVID-19. Results are for the identification of SARS-CoV-2 RNA. The SARS-CoV-2 RNA is generally detectable during the acute phase of infection. The Aptima SARS-CoV-2 Assay on the nChannel and nChannel Fusion system is intended for use by laboratory personnel specifically instructed and trained in the operation of the [place] and nChannel Fusion system. The Aptima SARS-CoV-2 assay is [...] information. Performed By: #### 3 1792 #### [facility] [address] MCV (RBC) [Entitic vol] 93.6 fL Normal 82.0-98.0 [facility] Comment on above: Order Comment: The A ptima SARS-CoV-2 assay is a nucleic acid amplification test intended for the qualitative detection of RNA from SARS-CoV-2 isolated and purified from nasopharyngeal (SDC TEACHER),oropharyngeal (OP), nasal swab, sputum, and bronchoalveolar lavage (BAL) specimens from patients with signs and symptoms of infection who are suspected of COVID-19. Results are for the identification of SARS-CoV-2 RNA. The SARS-CoV-2 RNA is generally detectable during the acute phase of infection. The Aptima SARS-CoV-2 Assay on the [employer] and [employer] Fusion system is intended for use by laboratory personnel specifically instructed and trained in the operation of the [employer] and [employer] Fusion system. The Aptima SARS-CoV-2 assay is [...] information. Performed By: #### 3 1792 #### [facility] 3000 [facility]. [address] Monocytes (Bld) [#/Vol] 0.2 10*3/uL Normal 0.1-1.0 [facility] Comment on above: Order Comment: The A ptima SARS-CoV-2 assay is a nucleic acid amplification test intended for the qualitative detection of RNA from SARS-CoV-2 isolated and purified from nasopharyngeal (SDC TEACHER),oropharyngeal (OP), nasal swab, sputum, and bronchoalveolar lavage (BAL) specimens from patients with signs and symptoms of infection who are suspected of COVID-19. Results are for the identification of SARS-CoV-2 RNA. The SARS-CoV-2 RNA is generally detectable during the acute phase of infection. The Aptima SARS-CoV-2 Assay on the [employer] and [employer] Fusion system is intended for use by laboratory personnel specifically instructed and trained in the operation of the [employer] [employer] Fusion system. The Aptima SARS-CoV-2 assay is [...] information. Performed By: #### 3 1792 #### [facility] [address] [facility] [place] [place] [address], [facility] MONOS 13.1 % High 5.0-12.0 [facility] Comment on above: Order Comment: The A ptima SARS-CoV-2 assay is a nucleic acid amplification test intended for the qualitative detection of RNA from SARS-CoV-2 isolated and purified from nasopharyngeal (SDC TEACHER),oropharyngeal (OP), nasal swab, sputum, and bronchoalveolar lavage (BAL) specimens from patients with signs and symptoms of infection who are suspected of COVID-19. Results are for the identification of SARS-CoV-2 RNA. The SARS-CoV-2 RNA is generally detectable during the acute phase of infection. The Aptima SARS-CoV-2 Assay on the NEBOTRADE Fusion system is intended for use by laboratory personnel specifically instructed and trained in the operation of the [place] and nChannel Fusion system. The Aptima SARS-CoV-2 assay is [...] information. Performed By: #### 3 1792 #### [facility] [address] [facility]. [address] Neutrophils/100 WBC (Bld) 59.6 % Normal 40.0-72.0 [facility] Comment on above: Order Comment: The A ptima SARS-CoV-2 assay is a nucleic acid amplification test intended for the qualitative detection of RNA from SARS-CoV-2 isolated and purified from nasopharyngeal (SDC TEACHER),oropharyngeal (OP), nasal swab, sputum, and bronchoalveolar lavage (BAL) specimens from patients with signs and symptoms of infection who are suspected of COVID-19. Results are for the identification of SARS-CoV-2 RNA. The SARS-CoV-2 RNA is generally detectable during the acute phase of infection. The Aptima SARS-CoV-2 Assay on the [place] and [employer] Fusion system is intended for use by laboratory personnel specifically instructed and trained in the operation of the [employer] and [employer] Fusion system. The Aptima SARS-CoV-2 assay is [...] information. Performed By: #### 3 1792 #### [facility] [address] PLAT CNT 118 10*3/uL Low 150-400 [facility] Comment on above: Order Comment: The A ptima SARS-CoV-2 assay is a nucleic acid amplification test intended for the qualitative detection of RNA from SARS-CoV-2 isolated and purified from nasopharyngeal (SDC TEACHER),oropharyngeal (OP), nasal swab, sputum, and bronchoalveolar lavage (BAL) specimens from patients with signs and symptoms of infection who are suspected of COVID-19. Results are for the identification of SARS-CoV-2 RNA. The SARS-CoV-2 RNA is generally detectable during the acute phase of infection. The Aptima SARS-CoV-2 Assay on the [employer] and [employer] Fusion system is intended for use by laboratory personnel specifically instructed and trained in the operation of the [employer] and [employer] Fusion system. The Aptima SARS-CoV-2 assay is [...] information. Performed By: #### 3 1792 #### [facility] [address] [facility] [place] [address], [facility] RBC (Bld) [#/Vol] 3.42 10*6/uL Low 3.80-5.00 [facility] Comment on above: Order Comment: The A ptima SARS-CoV-2 assay is a nucleic acid amplification test intended for the qualitative detection of RNA from SARS-CoV-2 isolated and purified from nasopharyngeal (SDC TEACHER),oropharyngeal (OP), nasal swab, sputum, and bronchoalveolar lavage (BAL) specimens from patients with signs and symptoms of infection who are suspected of COVID-19. Results are for the identification of SARS-CoV-2 RNA. The SARS-CoV-2 RNA is generally detectable during the acute phase of infection. The Aptima SARS-CoV-2 Assay on the Nodality system is intended for use by laboratory personnel specifically instructed and trained in the operation of the nChannel and nChannel Fusion system. The Aptima SARS-CoV-2 assay is [...] information. Performed By: #### 3 1792 #### [facility] [address]. [address] WBC (Bld) [#/Vol] 1.83 10*3/uL Low 4.00-10.60 [facility] Comment on above: Order Comment: The A ptima SARS-CoV-2 assay is a nucleic acid amplification test intended for the qualitative detection of RNA from SARS-CoV-2 isolated and purified from nasopharyngeal (SDC TEACHER),oropharyngeal (OP), nasal swab, sputum, and bronchoalveolar lavage (BAL) specimens from patients with signs and symptoms of infection who are suspected of COVID-19. Results are for the identification of SARS-CoV-2 RNA. The SARS-CoV-2 RNA is generally detectable during the acute phase of infection. The Aptima SARS-CoV-2 Assay on the nChannel and nChannel Fusion system is intended for use by laboratory personnel specifically instructed and trained in the operation of the [place] and [employer] Fusion system. The Aptima SARS-CoV-2 assay is [...] information. Performed By: #### 3 1792 #### [facility] [address] [facility]. [address] FERRITINon 04-27-2021 Ferritin [Mass/Vol] 71 ng/mL Normal 11-307 [facility] Comment on above: Order Comment: Unkno wn Performed By: #### 0 0071, 01085, 33571 #### [facility] [address] [facility]. [address] HIV1 AND 2 COMBO 4Gon 2020 HIV COMBO Negative Normal NEGATIVE [facility] Comment on above: Performed By: #### 3 0625 #### [facility] [address] [facility]. [address] IMMUNOGLOB BLon 04-27-2021 IgA [Mass/Vol] 24 mg/dL Low 60-413 [facility] Comment on above: Order Comment: No: D o not add to previous draw Performed By: #### 1 69, 67628 #### [facility] [address] [facility]. [address] IgG [Mass/Vol] 295 mg/dL Low 591-1540 [facility] Comment on above: Order Comment: No: D o not add to previous draw Performed By: #### 1 69, 14225 #### [facility] [address] [facility]. [address] IgM [Mass/Vol] 19 mg/dL Low 54-285 [facility] Comment on above: Order Comment: No: D o not add to previous draw Performed By: #### 1 0070, 53957 #### [facility] [address]. [address] PARVOVIRUS B19 IGG AND IGM 6 5120on 04-27-2021 PARVO B19 IGG 3.37 IV High <=0.90 [facility] Comment on above: Order Comment: No: [...] B19 IGM 0.05 IV Normal <=0.90 [facility] Comment on above: Order Comment: No: [...] levels of specific IgM antibodies. Performed By: [employer] [address] [place] [address] Residential Caregiver: Rylee Amaro MD PERIPHERAL SMEARon 1 Nucleated RBC/100 WBC (Bld) [Ratio] 0 % Normal 0-0 [facility] Comment on above: Performed By: #### 3 1792 #### [facility] [address] [place] [address], [facility] Order Comment: The A ptima SARS-CoV-2 assay is a nucleic acid amplification test intended for the qualitative detection of RNA from SARS-CoV-2 isolated and purified from nasopharyngeal (SDC TEACHER),oropharyngeal (OP), nasal swab, sputum, and bronchoalveolar lavage (BAL) specimens from patients with signs and symptoms of infection who are suspected of COVID-19. Results are for the identification of SARS-CoV-2 RNA. The SARS-CoV-2 RNA is generally detectable during the acute phase of infection. The Aptima SARS-CoV-2 Assay on the nChannel and nChannel Fusion system is intended for use by laboratory personnel specifically instructed and trained in the operation of the [place] and nChannel Fusion system. The Aptima SARS-CoV-2 assay is [...] th occasional ovalocytes and elliptocytes. Normal [facility] Comment on above: Performed By: #### 3 1792 #### [facility] [address] [place] [address], [facility] OTHER PS2 Mild thrombocytopeni a; no evidence of hemolysis seen. Normal [facility] Comment on above: Performed By: #### 3 1792 #### [facility] [address] OTHER PS3 Normal [facility] Comment on above: Result Comment: Leuk openia including neutropenia and lymphopenia; unremarkable leukocyte morphology present. No blasts or abnormal cells identified. Performed By: #### 3 1792 #### [facility] [address] [facility]. [address] OTHER PS4 Checked by May Tate M.D. Normal [facility] Comment on above: Performed By: #### 3 2 #### [facility] [address] [facility]. [address] RHEUMATOID FACTOR SERUMon RA <20 Normal 0-20 [facility] Comment on above: Order Comment: No: D o not add to previous draw Performed By: #### 1 0070, 70774 #### [facility] [address] TIBC- INCLUDES IRONon 2020 FE SATURATION 24 % Normal 20-50 [facility] Comment on above: Order Comment: Unkno wn Performed By: #### 0 0071, 98700, 44750 #### [facility] [address] Iron [Mass/Vol] 43 ug/dL Low 50-212 [facility] Comment on above: Order Comment: Unkno wn Performed By: #### 0 0071, 48267, 29925 #### [facility] [address] [facility]. [address] TIBC 181 mcg/dL Low 250-450 [facility] Comment on above: Order Comment: Unkno wn Performed By: #### 0 0071, 39337, 28396 #### [facility] [address] [facility] [place] [address], [facility] UIBC 138 mcg/dL Low 155-355 [facility] Comment on above: Order Comment: Unkno wn Performed By: #### 0 0071, 28985, 80942 #### [facility] [address] [facility] [address] APTTon 04-25-2021 aPTT Coag (Bld) [Time] 25.2 s Normal 25.0-35.0 [facility] Comment on above: Order Comment: No: [...] THIS PURPOSE. Performed By: #### 1 0070, 69084 #### [facility] [address] [facility]. [address] BASIC METABOLIC PANELon 04-05 Calcium [Mass/Vol] 8.7 mg/dL Normal 8.6-10.3 [facility] Comment on above: Order Comment: Unkno wn Performed By: #### 0 0071, 17151, 98262 #### [facility] [address] [facility] [place] [address], [facility] Chloride [Moles/Vol] 109 mmol/L High 98-107 [facility] Comment on above: Order Comment: Unkno wn Performed By: #### 0 0071, 49208, 12060 #### [facility] [address] [facility] [place] [address], [facility] CO2 [Moles/Vol] 25 mmol/L Normal 21-31 [facility] Comment on above: Order Comment: Unkno wn Performed By: #### 0 0071, 14195, 79884 #### [facility] [address] [facility] [place] [place] [address], [facility] Creatinine [Mass/Vol] 0.99 mg/dL Normal 0.60-1.20 [facility] Comment on above: Order Comment: Unkno wn Performed By: #### 0 0071, 24281, 49795 #### [facility] [address] [place] [address], [place] eGFR- non- 57 ml/min/1.73sq m Abnormal >60 [facility] Comment on above: Order Comment: Unkno wn Performed By: #### 0 0071, 10754, 74807 #### [facility] [address] [place] [address], [place] GFR/1.73 sq M.predicted among blacks MDRD (S/P/Bld) [Vol rate/Area] mL/min/{1.73_m2} Normal >60 [facility] Comment on above: Order Comment: Unkno wn Performed By: #### 0 0071, 31385, 39452 #### [facility] [address] [place] [address], [place] Glucose [Mass/Vol] 109 mg/dL High 70-100 [facility] Comment on above: Order Comment: Unkno wn Performed By: #### 0 0071, 49637, 49895 #### [facility] [address] [place] [address], [place] Potassium [Moles/Vol] 4.8 mmol/L Normal 3.5-5.1 [facility] Comment on above: Order Comment: Unkno wn Performed By: #### 0 0071, 24243, 85224 #### [facility] [address] [place] [address], [place] Sodium [Moles/Vol] 139 mmol/L Normal 136-145 [facility] Comment on above: Order Comment: Unkno wn Performed By: #### 0 0071, 21615, 02395 #### [facility] [address] [place] [address], [place] Urea nitrogen [Mass/Vol] 8 mg/dL Normal 7-25 [facility] Comment on above: Order Comment: Unkno wn Performed By: #### 0 0071, 08685, 22728 #### [facility] [address] [place] [address], [facility] CBC COMPLETE BLOOD COUNTon 06-25-2020 Erythrocyte distribution width (RBC) [Ratio] 15.4 % High 11.5-15.0 [facility] Comment on above: Order Comment: RH Performed By: #### 3 0313 #### [facility] [address] [place] [address], [facility] Hematocrit (Bld) [Volume fraction] 35.0 % Low 36.0-45.0 [facility] Comment on above: Order Comment: RH Performed By: #### 3 0313 #### [facility] [address] [facility] [place] [address], [facility] Hemoglobin (Bld) [Mass/Vol] 10.5 g/dL Low 12.0-15.0 [facility] Comment on above: Order Comment: RH Performed By: #### 3 0313 #### [facility] [address] [facility] [place] [address], [facility] MCH (RBC) [Entitic mass] 28.6 pg Normal 27.0-33.0 [facility] Comment on above: Order Comment: RH Performed By: #### 3 0313 #### [facility] [address] [place] [address], [facility] MCHC (RBC) [Mass/Vol] 30.0 g/dL Low 32.0-35.0 [facility] Comment on above: Order Comment: RH Performed By: #### 3 0313 #### [facility] [address] [place] [address], [facility] MCV (RBC) [Entitic vol] 95.4 fL Normal 82.0-98.0 [facility] Comment on above: Order Comment: RH Performed By: #### 3 0313 #### [facility] [address] [place] [address], [facility] Nucleated RBC/100 WBC (Bld) [Ratio] 0 % Normal 0-0 [facility] Comment on above: Order Comment: RH Performed By: #### 3 0313 #### [facility] [address] [facility] [place] [address], [facility] PLAT CNT 124 10*3/uL Low 150-400 [facility] Comment on above: Order Comment: RH Performed By: #### 3 0313 #### [facility] [address] [facility] [place] [address], [facility] RBC (Bld) [#/Vol] 3.67 10*6/uL Low 3.80-5.00 [facility] Comment on above: Order Comment: RH Performed By: #### 3 0313 #### [facility] [address] [facility] [place] [address], [facility] WBC (Bld) [#/Vol] 1.90 10*3/uL Low 4.00-10.60 [facility] Comment on above: Order Comment: RH Performed By: #### 3 0313 #### [facility] [address] [place] [address], [facility] MAGNESIUM BLOODon 04-25-2021 Magnesium [Mass/Vol] 2.0 mg/dL Normal 1.9-2.7 [facility] Comment on above: Order Comment: Unkno wn Performed By: #### 0 0071, 69356, 25111 #### [facility] [address] [facility] [place] [address], [facility] PHOSPHORUS BLOODon 1 Phosphate [Mass/Vol] 2.8 mg/dL Normal 2.5-5.0 [facility] Comment on above: Order Comment: Unkno wn Performed By: #### 0 0071, 34190, 71898 #### [facility] [address] PROTHROMBIN TIMEon 1 INR Coag (PPP) [Relative time] 0.95 {INR} Normal 0.91-1.16 [facility] Comment on above: Order Comment: No: [...] CHEST 1995;[id number]. Performed By: #### 1 0070, 85135 #### [facility] [address] [facility] [place] [address], [facility] PT Coag (PPP) [Time] 12.6 s Normal 12.3-14.8 [facility] Comment on above: Order Comment: No: D o not add to previous draw Result Comment: ALL RESULTS MUST BE INTERPRETED WITH RESPECT TO BLOOD DRAWING ARTIFACT OR DILUTION ERROR OF ANTICOAGULANT AT THE TIME OF SAMPLING. Performed By: #### 1 0070, 73930 #### [facility] [address] *BLOOD CULTUREon 04-24-2021 *BLOOD CULTURE Clinical Report: (D) Specimen: BLOOD CULTURE Collected: 04/24/2021 00:50 Status: Final Last Updated: 04/29/2021 06:31 (1) RH CULT RES (Final) No Growth Day 5 Normal [facility] Comment on above: Order Comment: RH Performed By: #### 3 0313 #### [facility] [address] *BLOOD CULTURE Clinical Report: (D) Specimen: BLOOD CULTURE Collected: 04/24/2021 00:45 Status: Final Last Updated: 04/29/2021 06:31 (1) LAC CULT RES (Final) No Growth Day 5 Normal [facility] Comment on above: Order Comment: The A ptima SARS-CoV-2 assay is a nucleic acid amplification test intended for the qualitative detection of RNA from SARS-CoV-2 isolated and purified from nasopharyngeal (SDC TEACHER),oropharyngeal (OP), nasal swab, sputum, and bronchoalveolar lavage (BAL) specimens from patients with signs and symptoms of infection who are suspected of COVID-19. Results are for the identification of SARS-CoV-2 RNA. The SARS-CoV-2 RNA is generally detectable during the acute phase of infection. The Aptima SARS-CoV-2 Assay on the nChannel and nChannel Fusion system is intended for use by laboratory personnel specifically instructed and trained in the operation of the [place] and nChannel Fusion system. The Aptima SARS-CoV-2 assay is [...] information. Performed By: #### 3 1792 #### [facility] [address] ALCOHOLon 04-24-2021 Ethanol [Mass/Vol] Not detected Normal [facility] Comment on above: Result Comment: Divi de by 1000 to convert mg/dL to percent. Example: 100mg/dL = 0.1%. Performed By: #### 1 0070, 12041 #### [facility] [address] [place] [address], [facility] AMMONIA BLOODon 04-24-2021 Ammonia (P) [Moles/Vol] 31 umol/L Normal 16-53 [facility] Comment on above: Order Comment: Unkno wn Performed By: #### 0 0071, 75774, 73053 #### [place] [address], [facility] CT ABDOMEN W IV CONTRASTon 1 06-24-2020 CT ABDOMEN W IV CONTRAST [facility] Department of Radiology [address] [place] [id number] == Patient Name: ALFIE HOGAN : 1960 Sex: F Age: Race: White Pt. Location: [facility] Patient Status: E Ordered Date: 04/23/2021 8:45:00 [...] report. Electronically signed: Beck Jon. Transcribed by: [email or web address], User Resident: YURI TRUJILLO Electronically Signed by: BECK JON @ 04/24/2021 12:20 AM I personally read this/these film(s) with this resident Normal [facility] Comment on above: Order Comment: Obstr uction, AMS, hx of constipation CT BRAIN WO CONTRASTon 04-24 CT BRAIN WO CONTRAST [facility] Department of Radiology [address] [place] [address] == Patient Name: ALFIE HOGAN : 1960 Sex: F Age: Race: White Pt. Location: [facility] Patient Status: E Ordered Date: 04/23/2021 8:30:00 [...] report. Electronically signed: Beck Jon. Transcribed by: [email or web address], User Resident: YURI TRUJILLO Electronically Signed by: BECK JON @ 04/23/2021 11:43 PM I personally read this/these film(s) with this resident Normal [facility] Comment on above: Order Comment: CVA, AMS, hx of Wernickes Encephalopathy CT LUMBAR SPINE WO CONTRASTo n 04-24-2021 CT LUMBAR SPINE WO CONTRAST [facility] Department of Radiology [address] [place] [phone] == Patient Name: ALFIE HOGAN : 1960 Sex: F Age: Race: White Pt. Location: [facility] Patient Status: E Ordered Date: 04/23/2021 8:50:00 [...] report. Electronically signed: Beck Jon. Transcribed by: [email or web address], User Resident: YURI TRUJILLO Electronically Signed by: BECK JON @ 04/24/2021 12:41 AM I personally read this/these film(s) with this resident Normal [facility] Comment on above: Order Comment: Fract ures, thoracolumbar tenderness CT THORACIC SPINE WITHOUT CO NTRASTon 04-24-2021 CT THORACIC SPINE WITHOUT CONTRAST [facility] Department of Radiology [address] [place] [phone] == Patient Name: ALFIE HOGAN : 1960 Sex: F Age: Race: White Pt. Location: [facility] Patient Status: E Ordered Date: 04/23/2021 8:45:00 [...] report. Electronically signed: Beck Jon. Transcribed by: [email or web address], User Resident: YURI TRUJILLO Electronically Signed by: BECK JON @ 04/24/2021 12:25 AM I personally read this/these film(s) with this resident Normal [facility] Comment on above: Order Comment: Fract ures, mid thoracic tenderness CTA CHESTon 04-24-2021 CTA CHEST [facility] Department of Radiology [address] [place] [phone] == Patient Name: ALFIE HOGAN : 1960 Sex: F Age: Race: White Pt. Location: [facility] Patient Status: E Ordered Date: 04/23/2021 8:45:00 [...] report. Electronically signed: Beck Jon. Transcribed by: [email or web address], User Resident: YURI TRUJILLO Electronically Signed by: BECK JON @ 04/24/2021 12:18 AM I personally read this/these film(s) with this resident Normal [facility] Comment on above: Order Comment: Pulmo nary Embolism, shortness of breath, AMS, syncope and collapse CTA HEADon 04-24-2021 CTA HEAD [facility] Department of Radiology [address] [place] [phone] == Patient Name: ALFIE HOGAN : 1960 Sex: F Age: Race: White Pt. Location: [facility] Patient Status: E Ordered Date: 04/23/2021 8:30:00 [...] report. Electronically signed: Beck Jon. Transcribed by: [email or web address], User Resident: YURI TRUJILLO Electronically Signed by: BECK JON @ 04/23/2021 11:49 PM I personally read this/these film(s) with this resident Normal [facility] Comment on above: Order Comment: Bleed , syncope, hx of falls, CTA NECKon 04-24-2021 [facility] Department of Radiology [address] [place] [id number] == Patient Name: ALFIE HOGAN : 1960 Sex: F Age: Race: White Pt. Location: [facility] Patient Status: E Ordered Date: 04/23/2021 8:30:00 [...] Automated exposure control was utilized. The [place] Symptomatic Carotid Endarterectomy Trial (NASCET) method for [...] achievable. Electronically signed: Beck Jon. Transcribed by: [email or web address], User Resident: Electronically Signed by: BECK JON @ 04/23/2021 11:40 PM Normal [facility] Comment on above: Order Comment: synco pe, hx of falls Ed Urine Tox Screen (compoun d)on 04-24-2021 50 THC Positive Abnormal NEGATIVE [facility] Comment on above: Performed By: #### 1 0070, [address]83 #### [address] BARBITURATES Negative Normal NEGATIVE [facility] Comment on above: Performed By: #### 1 69, #### [facility] [address] [place] [address], [place] BENZODIAZEPINES Negative Normal NEGATIVE [facility] Comment on above: Performed By: #### 1 69, #### [facility] [address] [place] [address], [place] COCAINE Negative Normal NEGATIVE [facility] Comment on above: Performed By: #### 1 69, #### [facility] [address] [place] [address], [place] METHADONE Negative Normal NEGATIVE [facility] Comment on above: Performed By: #### 1 #### [facility] [address] [place] [address], [place] MONO AMPHET Negative Normal NEGATIVE [facility] Comment on above: Performed By: #### 1 09249 #### [facility] [address] [place] [address], [place] OPIATES Negative Normal NEGATIVE [facility] Comment on above: Performed By: #### 1 69, 28096 #### [facility] [address] [place] [address], [place] PHENCYCLIDINE Negative Normal NEGATIVE [facility] Comment on above: Performed By: #### 1 69, 38125 #### [facility] [address] [place] [address], [place] PROPOXYPHENE Negative Normal NEGATIVE [facility] Comment on above: Performed By: #### 1 69, 85700 #### [facility] [address] [place] [address], [place] TRICYCLICS Positive Abnormal NEGATIVE [facility] Comment on above: Performed By: #### 1 69, 87888 #### [facility] [address] [facility]. [address] FOLATE SERUMon 04-24-2021 SERUM FOLATE 44.60 ng/mL Normal 6.60-1000.00 [facility] Comment on above: Order Comment: Unkno wn Result Comment: Norm al range reflects World Health Organization International Standard Performed By: #### 0 0071, 08860, 31451 #### [facility] [address] [facility] [place] [address], [facility] FREE T4on 04-24-2021 Free T4 [Mass/Vol] 0.74 ng/dL Normal 0.71-1.85 [facility] Comment on above: Performed By: #### 0 0071, 17584, 21318 #### [facility] [address] [facility]. [address] LACTATE WITH REFLEXon 2020 Lactate [Moles/Vol] 2.5 mmol/L High .5-2.2 [facility] Comment on above: Order Comment: No: D o not add to previous draw Performed By: #### 1 0070, 33606 #### [facility] [address] TSH3 WITH REFLEX FT4on 04-24 TSH 3RD GENERATION 0.30 uIU/mL Low 0.34-5.60 [facility] Comment on above: Order Comment: Unkno wn Performed By: #### 0 0071, 14137, 25599 #### [facility] [address] [facility] [place] [address], [facility] URINALYSIS REFLEXon 04-24-20 Appearance (U) CLEAR Normal CLEAR [facility] Comment on above: Order Comment: Crite alem for reflexing a culture was not met. Please call the lab [id number] within 24 hours of collection time if culture is needed Performed By: #### 3 2929 #### [facility] [address] [facility] [place] [place] [address], [facility] Bilirubin Ql (U) Negative Normal NEGATIVE [facility] Comment on above: Order Comment: Crite alem for reflexing a culture was not met. Please call the lab [id number] within 24 hours of collection time if culture is needed Performed By: #### 3 1839 #### [facility] [address] [place] [address], [place] Color (U) YELLOW Normal YELLOW [facility] Comment on above: Order Comment: Crite alem for reflexing a culture was not met. Please call the lab [id number] within 24 hours of collection time if culture is needed Performed By: #### 3 1839 #### [facility] [address] [place] [address], [place] Glucose Ql (U) Negative Normal NEGATIVE [facility] Comment on above: Order Comment: Crite alem for reflexing a culture was not met. Please call the lab [id number] within 24 hours of collection time if culture is needed Performed By: #### 3 1839 #### [facility] [address] [place] [address], [place] Hemoglobin Ql (U) Negative Normal NEGATIVE [facility] Comment on above: Order Comment: Crite alem for reflexing a culture was not met. Please call the lab [id number] within 24 hours of collection time if culture is needed Performed By: #### 3 1839 #### [facility] [address] [place] [address], [place] KETONE Negative Normal NEGATIVE [facility] Comment on above: Order Comment: Crite alem for reflexing a culture was not met. Please call the lab [id number] within 24 hours of collection time if culture is needed Performed By: #### 3 1839 #### [facility] [address] [place] [address], [place] LEUK CRISTO Negative Normal NEGATIVE [facility] Comment on above: Order Comment: Crite alem for reflexing a culture was not met. Please call the lab [id number] within 24 hours of collection time if culture is needed Performed By: #### 3 1839 #### [facility] [address] [place] [address], [facility] MICRO NOT DONE Normal [facility] Comment on above: Order Comment: Crite alem for reflexing a culture was not met. Please call the lab [id number] within 24 hours of collection time if culture is needed Result Comment: Micr oscopics not performed on urines with negative chemical reactions unless requested in original order Performed By: #### 3 1839 #### [facility] [address] [facility] [place] [address], [facility] Nitrite Ql (U) Negative Normal NEGATIVE [facility] Comment on above: Order Comment: Crite alem for reflexing a culture was not met. Please call the lab [id number] within 24 hours of collection time if culture is needed Performed By: #### 3 1839 #### [facility] [address] [facility] [place] [place] [address], [facility] pH (U) 5.0 [pH] Normal 5.0-8.0 [facility] Comment on above: Order Comment: Crite alem for reflexing a culture was not met. Please call the lab [id number] within 24 hours of collection time if culture is needed Performed By: #### 3 1839 #### [facility] [address] [facility] [place] [address], [facility] Protein Ql (U) Negative Normal NEGATIVE [facility] Comment on above: Order Comment: Crite alem for reflexing a culture was not met. Please call the lab [id number] within 24 hours of collection time if culture is needed Performed By: #### 3 1839 #### [facility] [address] [facility] [place] [address], [facility] SPEC GRAV 1.068 High 1.015-1.020 [facility] Comment on above: Order Comment: Crite alem for reflexing a culture was not met. Please call the lab [id number] within 24 hours of collection time if culture is needed Performed By: #### 3 1839 #### [facility] [address] [facility] [place] [address], [facility] VITAMIN B12on 04-24-2021 Cobalamin (Vitamin B12) [Mass/Vol] 944 pg/mL High 180-914 [facility] Comment on above: Order Comment: Deb wn Result Comment: REFE RENCE RANGES: 180-914 pg/mL Normal 145-179 pg/mL Indeterminate <145 pg/mL Deficient Performed By: #### 0 0071, 57025, 10233 #### [facility] [address] VITAMIN B1WB [id number] 021 VITAMIN B1 WB 106 nmol/L Normal 70-180 [facility] Comment on above: Order Comment: Unkno [...] developed and its performance characteristics determined by [facility]. It has not been cleared or approved by the [place] Food and Drug Administration. This test was performed in a CLIA certified laboratory and is intended for clinical purposes. Performed By: [facility] [address] [place] [address] Residential Caregiver: Rylee Amaro MD lactate w/reflex #2on 2020 Lactate [Moles/Vol] 1.3 mmol/L Normal .5-2.2 [facility] Comment on above: Order Comment: Deb wn Performed By: #### 0 0071, 04043, 38879 #### [facility] [address] [place] [address], [facility] AMMONIA BLOODon 04-23-2021 Ammonia (P) [Moles/Vol] 26 umol/L Normal 16-53 [facility] Comment on above: Performed By: #### 0 0071, 81618, 31963 #### [facility] [address] [place] [address], [facility] CBC W/DIFFon 04-23-2021 ABS IMM GRANS 0.0 10*3/uL Normal 0.0-0.2 [facility] Comment on above: Performed By: #### 3 0313 #### [facility] [address] [facility] [place] [address], [facility] ABS NEUTROPHILS 1.9 10*3/uL Normal 1.6-7.6 [facility] Comment on above: Performed By: #### 3 0313 #### [facility] [address] [facility] [place] [address], [facility] Basophils (Bld) [#/Vol] 0.0 10*3/uL Normal 0.0-0.2 [facility] Comment on above: Performed By: #### 3 0313 #### [facility] [address] [place] [address], [facility] Basophils/100 WBC (Bld) 0.0 % Normal 0.0-1.0 [facility] Comment on above: Performed By: #### 3 0313 #### [facility] [address] [facility] [place] [address], [facility] Eosinophils (Bld) [#/Vol] 0.0 10*3/uL Normal 0.0-0.5 [facility] Comment on above: Performed By: #### 3 0313 #### [facility] [address] [facility] [place] [address], [facility] Eosinophils/100 WBC (Bld) 0.0 % Normal 0.0-6.0 [facility] Comment on above: Performed By: #### 3 0313 #### [facility] [address] [place] [address], [facility] Erythrocyte distribution width (RBC) [Ratio] 15.5 % High 11.5-15.0 [facility] Comment on above: Performed By: #### 3 0313 #### [facility] [address] [facility] [place] [address], [facility] Hematocrit (Bld) [Volume fraction] 39.5 % Normal 36.0-45.0 [facility] Comment on above: Performed By: #### 3 0313 #### [facility] [address] [facility] [place] [address], [facility] Hemoglobin (Bld) [Mass/Vol] 11.9 g/dL Low 12.0-15.0 [facility] Comment on above: Performed By: #### 3 0313 #### [facility] [address] [facility] [place] [address], [facility] IMMATURE GRANS 0.4 % Normal 0.0-1.0 [facility] Comment on above: Performed By: #### 3 0313 #### [facility] [address] [place] [address], [facility] Lymphocytes (Bld) [#/Vol] 0.4 10*3/uL Low 1.2-4.0 [facility] Comment on above: Performed By: #### 3 0313 #### [facility] [address] [place] [address], [facility] Lymphocytes/100 WBC (Bld) 15.9 % Low 20.0-45.0 [facility] Comment on above: Performed By: #### 3 0313 #### [facility] [address] [place] [address], [facility] MCH (RBC) [Entitic mass] 28.3 pg Normal 27.0-33.0 [facility] Comment on above: Performed By: #### 3 0313 #### [facility] [address] MCHC (RBC) [Mass/Vol] 30.1 g/dL Low 32.0-35.0 [facility] Comment on above: Performed By: #### 3 0313 #### [facility] [address] [facility] [place] [address], [facility] MCV (RBC) [Entitic vol] 93.8 fL Normal 82.0-98.0 [facility] Comment on above: Performed By: #### 3 3 #### [facility] [address] [place] [address], [facility] Monocytes (Bld) [#/Vol] 0.1 10*3/uL Normal 0.1-1.0 [facility] Comment on above: Performed By: #### 3 3 #### [facility] [address] [place] [address], [facility] MONOS 5.4 % Normal 5.0-12.0 [facility] Comment on above: Performed By: #### 3 3 #### [facility] [address] [place] [address], [facility] Neutrophils/100 WBC (Bld) 78.3 % High 40.0-72.0 [facility] Comment on above: Performed By: #### 3 3 #### [facility] [address] Nucleated RBC/100 WBC (Bld) [Ratio] 0 % Normal 0-0 [facility] Comment on above: Performed By: #### 3 3 #### [facility] [address] [place] [address], [facility] PLAT CNT 117 10*3/uL Low 150-400 [facility] Comment on above: Performed By: #### 3 3 #### [facility] [address] [place] [address], [facility] RBC (Bld) [#/Vol] 4.21 10*6/uL Normal 3.80-5.00 [facility] Comment on above: Performed By: #### 3 3 #### [facility] [address] [place] [address], [facility] WBC (Bld) [#/Vol] 2.39 10*3/uL Low 4.00-10.60 [facility] Comment on above: Performed By: #### 3 3 #### [facility] [address] [place] [address], [facility] COMP METABOLIC PANELon 04-23 Albumin [Mass/Vol] 3.7 g/dL Normal 3.5-5.7 [facility] Comment on above: Performed By: #### 0 0071, 41237, 18771 #### [facility] [address] [place] [address], [facility] ALKALINE PHOSPH 118 IU/L High 34-104 [facility] Comment on above: Performed By: #### 0 0071, 00719, 37419 #### [facility] [address] [place] [address], [facility] ALT [Catalytic activity/Vol] 22 U/L Normal 7-52 [facility] Comment on above: Performed By: #### 0 0071, 92349, 43815 #### [facility] [address] [place] [address], [facility] AST [Catalytic activity/Vol] 24 U/L Normal 13-39 [facility] Comment on above: Performed By: #### 0 0071, 65610, 37992 #### [facility] [address] [place] [address], [place] Bilirubin [Mass/Vol] 0.6 mg/dL Normal 0.3-1.0 [facility] Comment on above: Performed By: #### 0 0071, 80257, 11530 #### [facility] [address] [place] [address], [place] Calcium [Mass/Vol] 9.2 mg/dL Normal 8.6-10.3 [facility] Comment on above: Performed By: #### 0 0071, 74923, 82333 #### [facility] [address] [place] [address], [place] Chloride [Moles/Vol] 107 mmol/L Normal 98-107 [facility] Comment on above: Performed By: #### 0 0071, 27905, 91199 #### [facility] [address] [place] [address], [place] CO2 [Moles/Vol] 22 mmol/L Normal 21-31 [facility] Comment on above: Performed By: #### 0 0071, 20933, 00707 #### [facility] [address] [place] [address], [place] Creatinine [Mass/Vol] 1.25 mg/dL High 0.60-1.20 [facility] Comment on above: Performed By: #### 0 0071, 47279, 23652 #### [facility] [address] [place] [address], [place] eGFR- 53 ml/min/1.73sq m Abnormal >60 [facility] Comment on above: Performed By: #### 0 0071, 08257, 10129 #### [facility] [address] [place] [address], [place] eGFR- non- 44 ml/min/1.73sq m Abnormal >60 [facility] Comment on above: Performed By: #### 0 0071, 76768, 53650 #### [facility] [address] [place] [address], [place] Glucose [Mass/Vol] 193 mg/dL High 70-100 [facility] Comment on above: Performed By: #### 0 0071, 61443, 99628 #### [facility] [address] [place] [address], [place] Potassium [Moles/Vol] 4.5 mmol/L Normal 3.5-5.1 [facility] Comment on above: Performed By: #### 0 0071, 26094, 17188 #### [facility] [address] [place] [address], [place] Protein [Mass/Vol] 5.3 g/dL Low 6.0-8.3 [facility] Comment on above: Performed By: #### 0 0071, 92337, 49612 #### [facility] [address] [facility] [place] [address], [facility] Sodium [Moles/Vol] 137 mmol/L Normal 136-145 [facility] Comment on above: Performed By: #### 0 0071, 19977, 01141 #### [facility] [address] [facility] [place] [address], [facility] Urea nitrogen [Mass/Vol] 11 mg/dL Normal 7-25 [facility] Comment on above: Performed By: #### 0 0071, 85420, 79000 #### [facility] [address] MAGNESIUM BLOODon 04-23-2021 Magnesium [Mass/Vol] 1.6 mg/dL Low 1.9-2.7 [facility] Comment on above: Performed By: #### 0 0071, 97424, 24808 #### [facility] [address] [place], [place] [address] [place] [address] PORTABLE CHEST 1 VIEWon 04-05 PORTABLE CHEST 1 VIEW [facility] Department of Radiology [address] [place] [id number] == Patient Name: ALFIE HOGAN : 1960 Sex: F Age: Race: White Pt. Location: [facility] Patient Status: E Ordered Date: 04/23/2021 7:55:00 [...] disease. Electronically signed: Mary Bailey. Transcribed by: [email or web address], User Resident: Electronically Signed by: MARY BAILEY @ 04/23/2021 08:36 PM Normal [facility] Comment on above: Order Comment: Evalu ate for Aspiration, hx of falls TROPONIN-Ion 04-23-2021 Troponin I.cardiac [Mass/Vol] 0.00 ng/mL Normal 0.00-0.04 [facility] Comment on above: Result Comment: REFE RENCE RANGES: 0.00 - 0.04 ng/ml NORMAL 0.05 - 0.50 ng/ml INDETERMINATE > 0.50 ng/ml CONSISTENT WITH AN M.I. Performed By: #### 0 0071, 99256, 90714 #### [facility] [address] [place] [address], [place] BASIC METABOLIC PANELon 04-04 Calcium [Mass/Vol] 9.0 mg/dL Normal 8.6-10.3 [facility] Comment on above: Order Comment: Unkno wn Performed By: #### 0 0071, 28925, 47385 #### [facility] [address] [place] [address], [place] Chloride [Moles/Vol] 102 mmol/L Normal 98-107 [facility] Comment on above: Order Comment: Unkno wn Performed By: #### 0 0071, 05077, 93321 #### [facility] [address] [place] [address], [place] CO2 [Moles/Vol] 23 mmol/L Normal 21-31 [facility] Comment on above: Order Comment: Unkno wn Performed By: #### 0 0071, 74503, 17451 #### [facility] [address] [place] [address], [place] Creatinine [Mass/Vol] 0.94 mg/dL Normal 0.60-1.20 [facility] Comment on above: Order Comment: Unkno wn Performed By: #### 0 0071, 13149, 89667 #### [facility] [address] [place] [address], [place] GFR/1.73 sq M.predicted among blacks MDRD (S/P/Bld) [Vol rate/Area] mL/min/{1.73_m2} Normal >60 [facility] Comment on above: Order Comment: Unkno wn Performed By: #### 0 0071, 59317, 19075 #### [facility] [address] [place] [address], [place] GFR/1.73 sq M.predicted among non-blacks MDRD (S/P/Bld) [Vol rate/Area] mL/min/{1.73_m2} Normal >60 [facility] Comment on above: Order Comment: Unkno wn Performed By: #### 0 0071, 08305, 59058 #### [facility] [address] [place] [address], [place] Glucose [Mass/Vol] 109 mg/dL High 70-100 [facility] Comment on above: Order Comment: Unkno wn Performed By: #### 0 0071, 19425, 64550 #### [facility] [address] [place] [address], [place] Potassium [Moles/Vol] 3.7 mmol/L Normal 3.5-5.1 [facility] Comment on above: Order Comment: Unkno wn Performed By: #### 0 0071, 19132, 26941 #### [facility] [address] [place] [address], [facility] Sodium [Moles/Vol] 133 mmol/L Low 136-145 [facility] Comment on above: Order Comment: Unkno wn Performed By: #### 0 0071, 77835, 80233 #### [facility] [address] [place] [address], [facility] Urea nitrogen [Mass/Vol] 5 mg/dL Low 7-25 [facility] Comment on above: Order Comment: Unkno wn Performed By: #### 0 0071, 24332, 82075 #### [facility] [address] [place] [address], [place] [address] [place] [address] CBC COMPLETE BLOOD COUNTon 06-19-2020 Erythrocyte distribution width (RBC) [Ratio] 15.5 % High 11.5-15.0 [facility] Comment on above: Order Comment: RH Performed By: #### 3 0313 #### [facility] [address] [facility] [facility] [place] [address], [facility] Hematocrit (Bld) [Volume fraction] 42.7 % Normal 36.0-45.0 [facility] Comment on above: Order Comment: RH Performed By: #### 3 0313 #### [facility] [facility] [address] [place] [address], [facility] Hemoglobin (Bld) [Mass/Vol] 12.8 g/dL Normal 12.0-15.0 [facility] Comment on above: Order Comment: RH Performed By: #### 3 0313 #### [facility] [address] [place] [address], [facility] MCH (RBC) [Entitic mass] 28.0 pg Normal 27.0-33.0 [facility] Comment on above: Order Comment: RH Performed By: #### 3 0313 #### [facility] [address] [facility] [place] [address], [facility] MCHC (RBC) [Mass/Vol] 30.0 g/dL Low 32.0-35.0 [facility] Comment on above: Order Comment: RH Performed By: #### 3 0313 #### [facility] [address] [facility] [place] [address], [facility] MCV (RBC) [Entitic vol] 93.4 fL Normal 82.0-98.0 [facility] Comment on above: Order Comment: RH Performed By: #### 3 3 #### [facility] [address] [facility] [place] [address], [facility] Nucleated RBC/100 WBC (Bld) [Ratio] 0 % Normal 0-0 [facility] Comment on above: Order Comment: RH Performed By: #### 3 3 #### [facility] [address] [facility] [place] [place] [address], [facility] PLAT CNT 136 10*3/uL Low 150-400 [facility] Comment on above: Order Comment: RH Performed By: #### 3 0313 #### [facility] [address] [facility] [place] [address], [facility] RBC (Bld) [#/Vol] 4.57 10*6/uL Normal 3.80-5.00 [facility] Comment on above: Order Comment: RH Performed By: #### 3 0313 #### [facility] [address] [facility] [place] [place] [address], [facility] WBC (Bld) [#/Vol] 3.32 10*3/uL Low 4.00-10.60 [facility] Comment on above: Order Comment: RH Performed By: #### 3 0313 #### [facility] [address] [facility] [place] [address], [facility] MAGNESIUM BLOODon 04-19-2021 Magnesium [Mass/Vol] 2.1 mg/dL Normal 1.9-2.7 [facility] Comment on above: Order Comment: Unkno wn Performed By: #### 0 0071, 17057, 09337 #### [facility] [address] [place] [address], [facility] BASIC METABOLIC PANELon 11-1 Calcium [Mass/Vol] 8.8 mg/dL Normal 8.6-10.3 [facility] Comment on above: Order Comment: Unkno wn Performed By: #### 0 0071, 45601, 25657 #### [facility] [address] [place] [address], [place] Chloride [Moles/Vol] 104 mmol/L Normal 98-107 [facility] Comment on above: Order Comment: Unkno wn Performed By: #### 0 0071, 92024, 36000 #### [facility] [address] [place] [address], [place] CO2 [Moles/Vol] 24 mmol/L Normal 21-31 [facility] Comment on above: Order Comment: Unkno wn Performed By: #### 0 0071, 04735, 35710 #### [facility] [address] [place] [address], [place] Creatinine [Mass/Vol] 0.84 mg/dL Normal 0.60-1.20 [facility] Comment on above: Order Comment: Unkno wn Performed By: #### 0 0071, 40471, 39625 #### [facility] [address] [place] [address], [place] GFR/1.73 sq M.predicted among blacks MDRD (S/P/Bld) [Vol rate/Area] mL/min/{1.73_m2} Normal >60 [facility] Comment on above: Order Comment: Unkno wn Performed By: #### 0 0071, 61124, 59256 #### [facility] [address] [place] [address], [place] GFR/1.73 sq M.predicted among non-blacks MDRD (S/P/Bld) [Vol rate/Area] mL/min/{1.73_m2} Normal >60 [facility] Comment on above: Order Comment: Unkno wn Performed By: #### 0 0071, 14620, 89888 #### [facility] [address] [place] [address], [facility] Glucose [Mass/Vol] 102 mg/dL High 70-100 [facility] Comment on above: Order Comment: Unkno wn Performed By: #### 0 0071, 33225, 93857 #### [facility] [address] [place] [address], [facility] Potassium [Moles/Vol] 3.7 mmol/L Normal 3.5-5.1 [facility] Comment on above: Order Comment: Unkno wn Performed By: #### 0 0071, 54459, 39957 #### [facility] [address] [place] [address], [place] Sodium [Moles/Vol] 135 mmol/L Low 136-145 [facility] Comment on above: Order Comment: Unkno wn Performed By: #### 0 0071, 48796, 06726 #### [facility] [address] [place] [address], [place] Urea nitrogen [Mass/Vol] 6 mg/dL Low 7-25 [facility] Comment on above: Order Comment: Unkno wn Performed By: #### 0 0071, 37082, 62454 #### [facility] [address] [place] [address], [facility] CBC COMPLETE BLOOD COUNTon 06-18-2020 Erythrocyte distribution width (RBC) [Ratio] 15.4 % High 11.5-15.0 [facility] Comment on above: Order Comment: The A ptima SARS-CoV-2 assay is a nucleic acid amplification test intended for the qualitative detection of RNA from SARS-CoV-2 isolated and purified from nasopharyngeal (SDC TEACHER),oropharyngeal (OP), nasal swab, sputum, and bronchoalveolar lavage (BAL) specimens from patients with signs and symptoms of infection who are suspected of COVID-19. Results are for the identification of SARS-CoV-2 RNA. The SARS-CoV-2 RNA is generally detectable during the acute phase of infection. The Aptima SARS-CoV-2 Assay on the [employer] system is intended for use by laboratory personnel specifically instructed and trained in the operation of the [employer] system. The Aptima SARS-CoV-2 assay is [...] information. Performed By: #### 3 1792 #### [address] Hematocrit (Bld) [Volume fraction] 40.1 % Normal 36.0-45.0 [facility] Comment on above: Order Comment: The A ptima SARS-CoV-2 assay is a nucleic acid amplification test intended for the qualitative detection of RNA from SARS-CoV-2 isolated and purified from nasopharyngeal (SDC TEACHER),oropharyngeal (OP), nasal swab, sputum, and bronchoalveolar lavage (BAL) specimens from patients with signs and symptoms of infection who are suspected of COVID-19. Results are for the identification of SARS-CoV-2 RNA. The SARS-CoV-2 RNA is generally detectable during the acute phase of infection. The Aptima SARS-CoV-2 Assay on the [employer] system is intended for use by laboratory personnel specifically instructed and trained in the operation of the [employer] system. The Aptima SARS-CoV-2 assay is [...] information. Performed By: #### 3 1792 #### [facility] [address] [place] [address], [facility] Hemoglobin (Bld) [Mass/Vol] 11.9 g/dL Low 12.0-15.0 [facility] Comment on above: Order Comment: The A ptima SARS-CoV-2 assay is a nucleic acid amplification test intended for the qualitative detection of RNA from SARS-CoV-2 isolated and purified from nasopharyngeal (SDC TEACHER),oropharyngeal (OP), nasal swab, sputum, and bronchoalveolar lavage (BAL) specimens from patients with signs and symptoms of infection who are suspected of COVID-19. Results are for the identification of SARS-CoV-2 RNA. The SARS-CoV-2 RNA is generally detectable during the acute phase of infection. The Aptima SARS-CoV-2 Assay on the [employer] Fusion system is intended for use by laboratory personnel specifically instructed and trained in the operation of the [employer] system. The Aptima SARS-CoV-2 assay is [...] information. Performed By: #### 3 1792 #### [facility] [address] [facility] [place] [address], [facility] MCH (RBC) [Entitic mass] 28.3 pg Normal 27.0-33.0 [facility] Comment on above: Order Comment: The A ptima SARS-CoV-2 assay is a nucleic acid amplification test intended for the qualitative detection of RNA from SARS-CoV-2 isolated and purified from nasopharyngeal (SDC TEACHER),oropharyngeal (OP), nasal swab, sputum, and bronchoalveolar lavage (BAL) specimens from patients with signs and symptoms of infection who are suspected of COVID-19. Results are for the identification of SARS-CoV-2 RNA. The SARS-CoV-2 RNA is generally detectable during the acute phase of infection. The Aptima SARS-CoV-2 Assay on the [employer] system is intended for use by laboratory personnel specifically instructed and trained in the operation of the [employer] system. The Aptima SARS-CoV-2 assay is [...] information. Performed By: #### 3 1792 #### [address] MCHC (RBC) [Mass/Vol] 29.7 g/dL Low 32.0-35.0 [facility] Comment on above: Order Comment: The A ptima SARS-CoV-2 assay is a nucleic acid amplification test intended for the qualitative detection of RNA from SARS-CoV-2 isolated and purified from nasopharyngeal (SDC TEACHER),oropharyngeal (OP), nasal swab, sputum, and bronchoalveolar lavage (BAL) specimens from patients with signs and symptoms of infection who are suspected of COVID-19. Results are for the identification of SARS-CoV-2 RNA. The SARS-CoV-2 RNA is generally detectable during the acute phase of infection. The Aptima SARS-CoV-2 Assay on the [employer] system is intended for use by laboratory personnel specifically instructed and trained in the operation of the [employer] system. The Aptima SARS-CoV-2 assay is [...] information. Performed By: #### 3 1792 #### [facility] [address] [place] [address], [facility] MCV (RBC) [Entitic vol] 95.2 fL Normal 82.0-98.0 [facility] Comment on above: Order Comment: The A ptima SARS-CoV-2 assay is a nucleic acid amplification test intended for the qualitative detection of RNA from SARS-CoV-2 isolated and purified from nasopharyngeal (SDC TEACHER),oropharyngeal (OP), nasal swab, sputum, and bronchoalveolar lavage (BAL) specimens from patients with signs and symptoms of infection who are suspected of COVID-19. Results are for the identification of SARS-CoV-2 RNA. The SARS-CoV-2 RNA is generally detectable during the acute phase of infection. The Aptima SARS-CoV-2 Assay on the [employer] Fusion system is intended for use by laboratory personnel specifically instructed and trained in the operation of the [employer] Fusion system. The Aptima SARS-CoV-2 assay is [...] information. Performed By: #### 3 1792 #### [facility] [address] [facility] [place] [address], [facility] Nucleated RBC/100 WBC (Bld) [Ratio] 0 % Normal 0-0 [facility] Comment on above: Order Comment: The A ptima SARS-CoV-2 assay is a nucleic acid amplification test intended for the qualitative detection of RNA from SARS-CoV-2 isolated and purified from nasopharyngeal (SDC TEACHER),oropharyngeal (OP), nasal swab, sputum, and bronchoalveolar lavage (BAL) specimens from patients with signs and symptoms of infection who are suspected of COVID-19. Results are for the identification of SARS-CoV-2 RNA. The SARS-CoV-2 RNA is generally detectable during the acute phase of infection. The Aptima SARS-CoV-2 Assay on the [employer] system is intended for use by laboratory personnel specifically instructed and trained in the operation of the [employer] system. The Aptima SARS-CoV-2 assay is [...] information. Performed By: #### 3 1792 #### [facility] [address] PLAT CNT 106 10*3/uL Low 150-400 [facility] Comment on above: Order Comment: The A ptima SARS-CoV-2 assay is a nucleic acid amplification test intended for the qualitative detection of RNA from SARS-CoV-2 isolated and purified from nasopharyngeal (SDC TEACHER),oropharyngeal (OP), nasal swab, sputum, and bronchoalveolar lavage (BAL) specimens from patients with signs and symptoms of infection who are suspected of COVID-19. Results are for the identification of SARS-CoV-2 RNA. The SARS-CoV-2 RNA is generally detectable during the acute phase of infection. The Aptima SARS-CoV-2 Assay on the [employer] system is intended for use by laboratory personnel specifically instructed and trained in the operation of the [employer] system. The Aptima SARS-CoV-2 assay is [...] and epidemiological information. Performed By: #### 3 2162 #### [facility] [address] [facility] [place] [address], [facility] RBC (Bld) [#/Vol] 4.21 10*6/uL Normal 3.80-5.00 [facility] Comment on above: Order Comment: The A ptima SARS-CoV-2 assay is a nucleic acid amplification test intended for the qualitative detection of RNA from SARS-CoV-2 isolated and purified from nasopharyngeal (SDC TEACHER),oropharyngeal (OP), nasal swab, sputum, and bronchoalveolar lavage (BAL) specimens from patients with signs and symptoms of infection who are suspected of COVID-19. Results are for the identification of SARS-CoV-2 RNA. The SARS-CoV-2 RNA is generally detectable during the acute phase of infection. The Aptima SARS-CoV-2 Assay on the [employer] and [employer] Fusion system is intended for use by laboratory personnel specifically instructed and trained in the operation of the [employer] system. The Aptima SARS-CoV-2 assay is [...] information. Performed By: #### 3 1792 #### [facility] [address] WBC (Bld) [#/Vol] 2.78 10*3/uL Low 4.00-10.60 [facility] Comment on above: Order Comment: The A ptima SARS-CoV-2 assay is a nucleic acid amplification test intended for the qualitative detection of RNA from SARS-CoV-2 isolated and purified from nasopharyngeal (SDC TEACHER),oropharyngeal (OP), nasal swab, sputum, and bronchoalveolar lavage (BAL) specimens from patients with signs and symptoms of infection who are suspected of COVID-19. Results are for the identification of SARS-CoV-2 RNA. The SARS-CoV-2 RNA is generally detectable during the acute phase of infection. The Aptima SARS-CoV-2 Assay on the [employer] system is intended for use by laboratory personnel specifically instructed and trained in the operation of the [employer] system. The Aptima SARS-CoV-2 assay is [...] information. Performed By: #### 3 1792 #### [address] MAGNESIUM BLOODon 04-18-2021 Magnesium [Mass/Vol] 1.9 mg/dL Normal 1.9-2.7 [facility] Comment on above: Order Comment: Unkno wn Performed By: #### 0 0071, 55594, 13031 #### [address] MRI BRAIN W WO CONTRASTon MRI BRAIN W WO CONTRAST [facility] Department of Radiology [address] [place] [id number] == Patient Name: ALFIE HOGAN : 1960 Sex: F Age: Race: White Pt. Location: [id number] Patient Status: I Ordered Date: 04/15/2021 11:15:00 AM Completed Date: 04/18/2021 10:50 AM Requesting Provider: ALFIE BEASLEY Attending Provider: ROB SCRUGGS Report Copy To: Signs & Symptoms: Headaches [...] sinuses. Electronically signed: Lui Escalante. Transcribed by: [email or web address], User Resident: Electronically Signed by: LUI ESCALANTE @ 04/18/2021 11:07 AM Normal [facility] Comment on above: Order Comment: CVA BASIC METABOLIC PANELon - Calcium [Mass/Vol] 9.2 mg/dL Normal 8.6-10.3 [facility] Comment on above: Order Comment: Unkno wn Performed By: #### 0 0071, 88676, 84010 #### [facility] [address] [place] [address], [facility] Chloride [Moles/Vol] 103 mmol/L Normal 98-107 [facility] Comment on above: Order Comment: Unkno wn Performed By: #### 0 0071, 24421, 22807 #### [facility] [address] [place] [address], [place] CO2 [Moles/Vol] 26 mmol/L Normal 21-31 [facility] Comment on above: Order Comment: Unkno wn Performed By: #### 0 0071, 47031, 01590 #### [facility] [address] [place] [address], [facility] Creatinine [Mass/Vol] 1.02 mg/dL Normal 0.60-1.20 [facility] Comment on above: Order Comment: Unkno wn Performed By: #### 0 0071, 52296, 65315 #### [facility] [address] [place] [address], [facility] eGFR- non- 56 ml/min/1.73sq m Abnormal >60 [facility] Comment on above: Order Comment: Unkno wn Performed By: #### 0 0071, 37849, 42306 #### [facility] [address] [place] [address], [place] GFR/1.73 sq M.predicted among blacks MDRD (S/P/Bld) [Vol rate/Area] mL/min/{1.73_m2} Normal >60 [facility] Comment on above: Order Comment: Unkno wn Performed By: #### 0 0071, 80260, 84966 #### [facility] [address] [place] [address], [facility] Glucose [Mass/Vol] 102 mg/dL High 70-100 [facility] Comment on above: Order Comment: Unkno wn Performed By: #### 0 0071, 06398, 98088 #### [facility] [address] Potassium [Moles/Vol] 3.9 mmol/L Normal 3.5-5.1 [facility] Comment on above: Order Comment: Unkno wn Performed By: #### 0 0071, 74487, 90347 #### [facility] [address] [place] [address], [facility] Sodium [Moles/Vol] 135 mmol/L Low 136-145 [facility] Comment on above: Order Comment: Unkno wn Performed By: #### 0 0071, 67823, 71347 #### [facility] [address] Urea nitrogen [Mass/Vol] 6 mg/dL Low 7-25 [facility] Comment on above: Order Comment: Unkno wn Performed By: #### 0 0071, 03173, 89575 #### [facility] [address] CBC COMPLETE BLOOD COUNTon 1 06-17-2020 Erythrocyte distribution width (RBC) [Ratio] 15.4 % High 11.5-15.0 [facility] Comment on above: Order Comment: The A ptima SARS-CoV-2 assay is a nucleic acid amplification test intended for the qualitative detection of RNA from SARS-CoV-2 isolated and purified from nasopharyngeal (SDC TEACHER),oropharyngeal (OP), nasal swab, sputum, and bronchoalveolar lavage (BAL) specimens from patients with signs and symptoms of infection who are suspected of COVID-19. Results are for the identification of SARS-CoV-2 RNA. The SARS-CoV-2 RNA is generally detectable during the acute phase of infection. The Aptima SARS-CoV-2 Assay on the [employer] system is intended for use by laboratory personnel specifically instructed and trained in the operation of the [employer] system. The Aptima SARS-CoV-2 assay is [...] information. Performed By: #### 3 1792 #### [facility] [address] [facility] [place] [address], [facility] Hematocrit (Bld) [Volume fraction] 39.9 % Normal 36.0-45.0 [facility] Comment on above: Order Comment: The A ptima SARS-CoV-2 assay is a nucleic acid amplification test intended for the qualitative detection of RNA from SARS-CoV-2 isolated and purified from nasopharyngeal (SDC TEACHER),oropharyngeal (OP), nasal swab, sputum, and bronchoalveolar lavage (BAL) specimens from patients with signs and symptoms of infection who are suspected of COVID-19. Results are for the identification of SARS-CoV-2 RNA. The SARS-CoV-2 RNA is generally detectable during the acute phase of infection. The Aptima SARS-CoV-2 Assay on the [employer] and [employer] system is intended for use by laboratory personnel specifically instructed and trained in the operation of the [employer] system. The Aptima SARS-CoV-2 assay is [...] information. Performed By: #### 3 1792 #### [facility] [address] [facility] [place] [place] [address], [facility] Hemoglobin (Bld) [Mass/Vol] 12.3 g/dL Normal 12.0-15.0 [facility] Comment on above: Order Comment: The A ptima SARS-CoV-2 assay is a nucleic acid amplification test intended for the qualitative detection of RNA from SARS-CoV-2 isolated and purified from nasopharyngeal (SDC TEACHER),oropharyngeal (OP), nasal swab, sputum, and bronchoalveolar lavage (BAL) specimens from patients with signs and symptoms of infection who are suspected of COVID-19. Results are for the identification of SARS-CoV-2 RNA. The SARS-CoV-2 RNA is generally detectable during the acute phase of infection. The Aptima SARS-CoV-2 Assay on the [employer] system is intended for use by laboratory personnel specifically instructed and trained in the operation of the [employer] system. The Aptima SARS-CoV-2 assay is [...] information. Performed By: #### 3 1792 #### [address] MCH (RBC) [Entitic mass] 28.3 pg Normal 27.0-33.0 [facility] Comment on above: Order Comment: The A ptima SARS-CoV-2 assay is a nucleic acid amplification test intended for the qualitative detection of RNA from SARS-CoV-2 isolated and purified from nasopharyngeal (SDC TEACHER),oropharyngeal (OP), nasal swab, sputum, and bronchoalveolar lavage (BAL) specimens from patients with signs and symptoms of infection who are suspected of COVID-19. Results are for the identification of SARS-CoV-2 RNA. The SARS-CoV-2 RNA is generally detectable during the acute phase of infection. The Aptima SARS-CoV-2 Assay on the [employer] system is intended for use by laboratory personnel specifically instructed and trained in the operation of the [employer] system. The Aptima SARS-CoV-2 assay is [...] and epidemiological information. Performed By: #### 3 179 #### [facility] [address] MCHC (RBC) [Mass/Vol] 30.8 g/dL Low 32.0-35.0 [facility] Comment on above: Order Comment: The A ptima SARS-CoV-2 assay is a nucleic acid amplification test intended for the qualitative detection of RNA from SARS-CoV-2 isolated and purified from nasopharyngeal (SDC TEACHER),oropharyngeal (OP), nasal swab, sputum, and bronchoalveolar lavage (BAL) specimens from patients with signs and symptoms of infection who are suspected of COVID-19. Results are for the identification of SARS-CoV-2 RNA. The SARS-CoV-2 RNA is generally detectable during the acute phase of infection. The Aptima SARS-CoV-2 Assay on the [employer] Fusion system is intended for use by laboratory personnel specifically instructed and trained in the operation of the [employer]Channel and [employer] Fusion system. The Aptima SARS-CoV-2 assay is [...] information. Performed By: #### 3 1792 #### [facility] [address] [place] [address], [facility] MCV (RBC) [Entitic vol] 91.7 fL Normal 82.0-98.0 [facility] Comment on above: Order Comment: The A ptima SARS-CoV-2 assay is a nucleic acid amplification test intended for the qualitative detection of RNA from SARS-CoV-2 isolated and purified from nasopharyngeal (SDC TEACHER),oropharyngeal (OP), nasal swab, sputum, and bronchoalveolar lavage (BAL) specimens from patients with signs and symptoms of infection who are suspected of COVID-19. Results are for the identification of SARS-CoV-2 RNA. The SARS-CoV-2 RNA is generally detectable during the acute phase of infection. The Aptima SARS-CoV-2 Assay on the [employer] Fusion system is intended for use by laboratory personnel specifically instructed and trained in the operation of the [employer] Fusion system. The Aptima SARS-CoV-2 assay is [...] information. Performed By: #### 3 1792 #### [address] Nucleated RBC/100 WBC (Bld) [Ratio] 0 % Normal 0-0 [facility] Comment on above: Order Comment: The A ptima SARS-CoV-2 assay is a nucleic acid amplification test intended for the qualitative detection of RNA from SARS-CoV-2 isolated and purified from nasopharyngeal (SDC TEACHER),oropharyngeal (OP), nasal swab, sputum, and bronchoalveolar lavage (BAL) specimens from patients with signs and symptoms of infection who are suspected of COVID-19. Results are for the identification of SARS-CoV-2 RNA. The SARS-CoV-2 RNA is generally detectable during the acute phase of infection. The Aptima SARS-CoV-2 Assay on the [employer] Fusion system is intended for use by laboratory personnel specifically instructed and trained in the operation of the [employer] Fusion system. The Aptima SARS-CoV-2 assay is [...] information. Performed By: #### 3 1792 #### [facility] [address] [facility]. [address] PLAT CNT 110 10*3/uL Low 150-400 [facility] Comment on above: Order Comment: The A ptima SARS-CoV-2 assay is a nucleic acid amplification test intended for the qualitative detection of RNA from SARS-CoV-2 isolated and purified from nasopharyngeal (SDC TEACHER),oropharyngeal (OP), nasal swab, sputum, and bronchoalveolar lavage (BAL) specimens from patients with signs and symptoms of infection who are suspected of COVID-19. Results are for the identification of SARS-CoV-2 RNA. The SARS-CoV-2 RNA is generally detectable during the acute phase of infection. The Aptima SARS-CoV-2 Assay on the nChannel and nChannel Fusion system is intended for use by laboratory personnel specifically instructed and trained in the operation of the [employer] Fusion system. The Aptima SARS-CoV-2 assay is [...] information. Performed By: #### 3 1792 #### [facility] [address] [facility]. [address] RBC (Bld) [#/Vol] 4.35 10*6/uL Normal 3.80-5.00 [facility] Comment on above: Order Comment: The A ptima SARS-CoV-2 assay is a nucleic acid amplification test intended for the qualitative detection of RNA from SARS-CoV-2 isolated and purified from nasopharyngeal (SDC TEACHER),oropharyngeal (OP), nasal swab, sputum, and bronchoalveolar lavage (BAL) specimens from patients with signs and symptoms of infection who are suspected of COVID-19. Results are for the identification of SARS-CoV-2 RNA. The SARS-CoV-2 RNA is generally detectable during the acute phase of infection. The Aptima SARS-CoV-2 Assay on the [employer] Fusion system is intended for use by laboratory personnel specifically instructed and trained in the operation of the [employer] Fusion system. The Aptima SARS-CoV-2 assay is [...] information. Performed By: #### 3 1792 #### [facility] [address] [facility]. [address] WBC (Bld) [#/Vol] 3.42 10*3/uL Low 4.00-10.60 [facility] Comment on above: Order Comment: The A ptima SARS-CoV-2 assay is a nucleic acid amplification test intended for the qualitative detection of RNA from SARS-CoV-2 isolated and purified from nasopharyngeal (SDC TEACHER),oropharyngeal (OP), nasal swab, sputum, and bronchoalveolar lavage (BAL) specimens from patients with signs and symptoms of infection who are suspected of COVID-19. Results are for the identification of SARS-CoV-2 RNA. The SARS-CoV-2 RNA is generally detectable during the acute phase of infection. The Aptima SARS-CoV-2 Assay on the [employer] Fusion system is intended for use by laboratory personnel specifically instructed and trained in the operation of the [employer] Fusion system. The Aptima SARS-CoV-2 assay is [...] information. Performed By: #### 3 1792 #### [facility] [address], [place] [id number] [place] [address] MAGNESIUM BLOODon 04-17-2021 Magnesium [Mass/Vol] 1.8 mg/dL Low 1.9-2.7 [facility] Comment on above: Order Comment: Unkno wn Performed By: #### 0 0071, 99681, [id number] #### [facility] [address] EEG Reporton 04-16-2021 EEG Report Name: Isrrael Hogan [facility] MR#: [id number] Age: 60 Physician: Date: 04/15/2021 Lab#: Date of : 1960 Patient Type: I NEURODIAGNOSTIC SERVICES REPORT [place], [place] [address] Board of the [place] [employer] Accredited Laboratory Alfie Hogan Date of : 1960 EEG lab November: Date of study: 04/15/2021 Referring physician: Dr. Beasley History: This is an ZGI-owmp-irg right-handed male with seizures. The study is [...] Herrera M.D. Date Trans: 04/16/2021 03:47 P/ [id number] Normal [facility] MRI DYNAMIC LIVER W WO CONTR Elizabeth 04-16-2021 MRI DYNAMIC LIVER W WO CONTRAST [facility] Department of Radiology [address] [place] [address] == Patient Name: ALFIE HOGAN : 1960 Sex: F Age: Race: White Pt. Location: [id number] Patient Status: I Ordered Date: 04/13/2021 8:45:00 [...] hemangioma. Electronically signed: Elizabeth Jordan. Transcribed by: [email or web address], User Resident: Electronically Signed by: ELIZABETH JORDAN @ 04/16/2021 04:06 PM Normal [facility] Comment on above: Order Comment: Lele mireles BASIC METABOLIC PANELon 11-1 Calcium [Mass/Vol] 9.0 mg/dL Normal 8.6-10.3 [facility] Comment on above: Order Comment: No: D o not add to previous draw Performed By: #### 1 69, 97089 #### [facility] [address] [place] [address], [place] Chloride [Moles/Vol] 104 mmol/L Normal 98-107 [facility] Comment on above: Order Comment: No: D o not add to previous draw Performed By: #### 1 0, 09402 #### [facility] [address] [place] [address], [place] CO2 [Moles/Vol] 23 mmol/L Normal 21-31 [facility] Comment on above: Order Comment: No: D o not add to previous draw Performed By: #### 1 69, 10897 #### [facility] [address] [place] [address], [place] Creatinine [Mass/Vol] 0.98 mg/dL Normal 0.60-1.20 [facility] Comment on above: Order Comment: No: D o not add to previous draw Performed By: #### 1 69, 62774 #### [facility] [address] [place] [address], [place] eGFR- non- 58 ml/min/1.73sq m Abnormal >60 [facility] Comment on above: Order Comment: No: D o not add to previous draw Performed By: #### 1 0, 08182 #### [facility] [address] [place] [address], [place] GFR/1.73 sq M.predicted among blacks MDRD (S/P/Bld) [Vol rate/Area] mL/min/{1.73_m2} Normal >60 [facility] Comment on above: Order Comment: No: D o not add to previous draw Performed By: #### 1 69, 55327 #### [facility] [address] [place] [address], [place] Glucose [Mass/Vol] 78 mg/dL Normal 70-100 [facility] Comment on above: Order Comment: No: D o not add to previous draw Performed By: #### 1 69, 46205 #### [facility] [address] [place] [address], [place] Potassium [Moles/Vol] 3.7 mmol/L Normal 3.5-5.1 [facility] Comment on above: Order Comment: No: D o not add to previous draw Performed By: #### 1 69, 31550 #### [facility] [address] [place] [address], [place] Sodium [Moles/Vol] 137 mmol/L Normal 136-145 [facility] Comment on above: Order Comment: No: D o not add to previous draw Performed By: #### 1 69, 41797 #### [facility] [address] [place] [address], [facility] Urea nitrogen [Mass/Vol] 9 mg/dL Normal 7-25 [facility] Comment on above: Order Comment: No: D o not add to previous draw Performed By: #### 1 69, 46197 #### [facility] [address] [place] [id number], [facility] CBC COMPLETE BLOOD COUNTon 06-15-2020 Erythrocyte distribution width (RBC) [Ratio] 15.0 % Normal 11.5-15.0 [facility] Comment on above: Order Comment: RH Performed By: #### 3 9893 #### [facility] [address] [place] [id number], [facility] Hematocrit (Bld) [Volume fraction] 41.3 % Normal 36.0-45.0 [facility] Comment on above: Order Comment: RH Performed By: #### 3 3 #### [facility] [address] [place] [address], [facility] Hemoglobin (Bld) [Mass/Vol] 12.8 g/dL Normal 12.0-15.0 [facility] Comment on above: Order Comment: RH Performed By: #### 3 0313 #### [facility] [address] [place] [address], [facility] MCH (RBC) [Entitic mass] 28.6 pg Normal 27.0-33.0 [facility] Comment on above: Order Comment: RH Performed By: #### 3 3 #### [facility] [address] [facility] [place] [address], [facility] MCHC (RBC) [Mass/Vol] 31.0 g/dL Low 32.0-35.0 [facility] Comment on above: Order Comment: RH Performed By: #### 3 3 #### [facility] [address] [facility] [place] [address], [facility] MCV (RBC) [Entitic vol] 92.2 fL Normal 82.0-98.0 [facility] Comment on above: Order Comment: RH Performed By: #### 3 3 #### [facility] [address] [facility] [place] [place] [address], [facility] Nucleated RBC/100 WBC (Bld) [Ratio] 0 % Normal 0-0 [facility] Comment on above: Order Comment: RH Performed By: #### 3 3 #### [facility] [address] [facility] [place] [address], [facility] PLAT CNT 127 10*3/uL Low 150-400 [facility] Comment on above: Order Comment: RH Performed By: #### 3 3 #### [facility] [address] [facility] [place] [address], [facility] RBC (Bld) [#/Vol] 4.48 10*6/uL Normal 3.80-5.00 [facility] Comment on above: Order Comment: RH Performed By: #### 3 0313 #### [facility] [address] WBC (Bld) [#/Vol] 3.25 10*3/uL Low 4.00-10.60 [facility] Comment on above: Order Comment: RH Performed By: #### 3 0313 #### [facility] [address] MAGNESIUM BLOODon 04-15-2021 Magnesium [Mass/Vol] 1.9 mg/dL Normal 1.9-2.7 [facility] Comment on above: Order Comment: No: D o not add to previous draw Performed By: #### 1 0070, 43530 #### [facility] [address] HCV NAAT REFLEX TO GENOTYPE [id number] 04-14-2021 HCV QNT BY NAAT INTERP Not detected Normal Not Detecte d [facility] Comment on above: Result Comment: INTE [...] and Cellular Tissue-Based Products (HCT/P). Performed By: [facility] [address] [place] [id number] Residential Caregiver: Rylee Amaro MD HCV QNT BY NAAT LOG Not detected Normal [facility] Comment on above: Result Comment: Hepa titis C Virus (HCV) by Quantitative TMA result was less than 4,000 IU/mL (3.6 log IU/mL); therefore no further testing added. HCV QNT NAAT Not detected Normal [facility] HEPATITIS C ANTIBODYon 04-14 ANTI-HCV Indeterminate Abnormal NONREACTIVE [facility] Comment on above: Order Comment: No: D o not add to previous draw Performed By: #### 1 0070, 30470 #### [address] ABDOMEN 1 VWon 04-13-2021 ABDOMEN 1 [facility] Department of Radiology [address] [place] [id number] == Patient Name: ALFIE HOGAN : 1960 Sex: F Age: Race: White Pt. Location: [id number] Patient Status: I Ordered Date: 04/13/2021 11:05:00 [...] pattern Electronically signed: Radha Patton. Transcribed by: [email or web address], User Resident: Electronically Signed by: RADHA PATTON @ 04/13/2021 03:21 PM Normal [facility] Comment on above: Order Comment: Impac tion AFP TUMOR MARKER [id number] AFP TUMOR MARKER 4 ng/mL Normal 0-9 [facility] Comment on above: Result Comment: INTE [...] reference intervals for this test in the [facility] Test Directory ([employer]). Performed By: [facility] [address] [place] [address] Residential Caregiver: Rylee Amaro MD BASIC METABOLIC PANELon 04-04 Calcium [Mass/Vol] 8.6 mg/dL Normal 8.6-10.3 [facility] Comment on above: Order Comment: No: D o not add to previous draw Performed By: #### 1 69, 28845 #### [facility] [address] [place] [address], [place] Chloride [Moles/Vol] 108 mmol/L High 98-107 [facility] Comment on above: Order Comment: No: D o not add to previous draw Performed By: #### 1 69, 19623 #### [facility] [address] [place] [address], [place] CO2 [Moles/Vol] 27 mmol/L Normal 21-31 [facility] Comment on above: Order Comment: No: D o not add to previous draw Performed By: #### 1 69, 53839 #### [facility] [address] [place] [address], [place] Creatinine [Mass/Vol] 0.98 mg/dL Normal 0.60-1.20 [facility] Comment on above: Order Comment: No: D o not add to previous draw Performed By: #### 1 69, 32695 #### [facility] [address] [place] [address], [place] eGFR- non- 58 ml/min/1.73sq m Abnormal >60 [facility] Comment on above: Order Comment: No: D o not add to previous draw Performed By: #### 1 69, 56267 #### [facility] [address] [place] [address], [place] GFR/1.73 sq M.predicted among blacks MDRD (S/P/Bld) [Vol rate/Area] mL/min/{1.73_m2} Normal >60 [facility] Comment on above: Order Comment: No: D o not add to previous draw Performed By: #### 1 69, 26687 #### [facility] [address] [place] [address], [place] Glucose [Mass/Vol] 84 mg/dL Normal 70-100 [facility] Comment on above: Order Comment: No: D o not add to previous draw Performed By: #### 1 69, 66486 #### [facility] [address] [place] [address], [place] Potassium [Moles/Vol] 4.1 mmol/L Normal 3.5-5.1 [facility] Comment on above: Order Comment: No: D o not add to previous draw Performed By: #### 1 69, 58847 #### [facility] [address] [place] [address], [place] Sodium [Moles/Vol] 140 mmol/L Normal 136-145 [facility] Comment on above: Order Comment: No: D o not add to previous draw Performed By: #### 1 0070, 55703 #### [facility] [address] [place] [address], [facility] Urea nitrogen [Mass/Vol] 10 mg/dL Normal 7-25 [facility] Comment on above: Order Comment: No: D o not add to previous draw Performed By: #### 1 0070, 25177 #### [facility] [address] [place] [address], [facility] CANCER ANTIGEN 125on 021 CA 125 13 Units/mL Normal 0-35 [facility] Comment on above: Order Comment: No: D o not add to previous draw Result Comment: The Plynked OV Monitor Immunoassay method was used. Results obtained with different assay methods cannot be used interchangeably. Performed By: #### 1 0070, 44742 #### [facility] [address] [place] [address], [facility] CANCER ANTIGEN-GI (CA 19-9) [id number] 04-13-2021 CA 19-9 29 U/mL Normal 0-37 [facility] Comment on above: Order Comment: Unkno [...] or absence of malignant disease. Performed By: [facility] [address] [place] [address] Residential Caregiver: Rylee Amaro MD CBC COMPLETE BLOOD COUNTon 06-13-2020 Erythrocyte distribution width (RBC) [Ratio] 14.9 % Normal 11.5-15.0 [facility] Comment on above: Order Comment: The A ptima SARS-CoV-2 assay is a nucleic acid amplification test intended for the qualitative detection of RNA from SARS-CoV-2 isolated and purified from nasopharyngeal (SDC TEACHER),oropharyngeal (OP), nasal swab, sputum, and bronchoalveolar lavage (BAL) specimens from patients with signs and symptoms of infection who are suspected of COVID-19. Results are for the identification of SARS-CoV-2 RNA. The SARS-CoV-2 RNA is generally detectable during the acute phase of infection. The Aptima SARS-CoV-2 Assay on the [employer] Fusion system is intended for use by laboratory personnel specifically instructed and trained in the operation of the [employer] system. The Aptima SARS-CoV-2 assay is [...] information. Performed By: #### 3 1792 #### [address] Hematocrit (Bld) [Volume fraction] 38.9 % Normal 36.0-45.0 [facility] Comment on above: Order Comment: The A ptima SARS-CoV-2 assay is a nucleic acid amplification test intended for the qualitative detection of RNA from SARS-CoV-2 isolated and purified from nasopharyngeal (SDC TEACHER),oropharyngeal (OP), nasal swab, sputum, and bronchoalveolar lavage (BAL) specimens from patients with signs and symptoms of infection who are suspected of COVID-19. Results are for the identification of SARS-CoV-2 RNA. The SARS-CoV-2 RNA is generally detectable during the acute phase of infection. The Aptima SARS-CoV-2 Assay on the [employer] Fusion system is intended for use by laboratory personnel specifically instructed and trained in the operation of the [employer] system. The Aptima SARS-CoV-2 assay is [...] information. Performed By: #### 3 1792 #### [facility] [address] [facility] [place] [address], [facility] Hemoglobin (Bld) [Mass/Vol] 12.1 g/dL Normal 12.0-15.0 [facility] Comment on above: Order Comment: The A ptima SARS-CoV-2 assay is a nucleic acid amplification test intended for the qualitative detection of RNA from SARS-CoV-2 isolated and purified from nasopharyngeal (SDC TEACHER),oropharyngeal (OP), nasal swab, sputum, and bronchoalveolar lavage (BAL) specimens from patients with signs and symptoms of infection who are suspected of COVID-19. Results are for the identification of SARS-CoV-2 RNA. The SARS-CoV-2 RNA is generally detectable during the acute phase of infection. The Aptima SARS-CoV-2 Assay on the [employer] Fusion system is intended for use by laboratory personnel specifically instructed and trained in the operation of the [employer] and [employer]Channel Fusion system. The Aptima SARS-CoV-2 assay is [...] information. Performed By: #### 3 1792 #### [facility] [address] [facility] [place] [address], [facility] MCH (RBC) [Entitic mass] 28.2 pg Normal 27.0-33.0 [facility] Comment on above: Order Comment: The A ptima SARS-CoV-2 assay is a nucleic acid amplification test intended for the qualitative detection of RNA from SARS-CoV-2 isolated and purified from nasopharyngeal (SDC TEACHER),oropharyngeal (OP), nasal swab, sputum, and bronchoalveolar lavage (BAL) specimens from patients with signs and symptoms of infection who are suspected of COVID-19. Results are for the identification of SARS-CoV-2 RNA. The SARS-CoV-2 RNA is generally detectable during the acute phase of infection. The Aptima SARS-CoV-2 Assay on the [employer] Fusion system is intended for use by laboratory personnel specifically instructed and trained in the operation of the [employer] and [employer] Fusion system. The Aptima SARS-CoV-2 assay is [...] information. Performed By: #### 3 1792 #### [facility] [address] MCHC (RBC) [Mass/Vol] 31.1 g/dL Low 32.0-35.0 [facility] Comment on above: Order Comment: The A ptima SARS-CoV-2 assay is a nucleic acid amplification test intended for the qualitative detection of RNA from SARS-CoV-2 isolated and purified from nasopharyngeal (SDC TEACHER),oropharyngeal (OP), nasal swab, sputum, and bronchoalveolar lavage (BAL) specimens from patients with signs and symptoms of infection who are suspected of COVID-19. Results are for the identification of SARS-CoV-2 RNA. The SARS-CoV-2 RNA is generally detectable during the acute phase of infection. The Aptima SARS-CoV-2 Assay on the [employer] system is intended for use by laboratory personnel specifically instructed and trained in the operation of the [employer] system. The Aptima SARS-CoV-2 assay is [...] information. Performed By: #### 3 1792 #### [facility] [address] [facility] [place] [address], [facility] MCV (RBC) [Entitic vol] 90.7 fL Normal 82.0-98.0 [facility] Comment on above: Order Comment: The A ptima SARS-CoV-2 assay is a nucleic acid amplification test intended for the qualitative detection of RNA from SARS-CoV-2 isolated and purified from nasopharyngeal (SDC TEACHER),oropharyngeal (OP), nasal swab, sputum, and bronchoalveolar lavage (BAL) specimens from patients with signs and symptoms of infection who are suspected of COVID-19. Results are for the identification of SARS-CoV-2 RNA. The SARS-CoV-2 RNA is generally detectable during the acute phase of infection. The Aptima SARS-CoV-2 Assay on the nChannel and [employer] Fusion system is intended for use by laboratory personnel specifically instructed and trained in the operation of the [employer] system. The Aptima SARS-CoV-2 assay is [...] information. Performed By: #### 3 1792 #### [facility] [address] [facility] [place] [address], [facility] Nucleated RBC/100 WBC (Bld) [Ratio] 0 % Normal 0-0 [facility] Comment on above: Order Comment: The A ptima SARS-CoV-2 assay is a nucleic acid amplification test intended for the qualitative detection of RNA from SARS-CoV-2 isolated and purified from nasopharyngeal (SDC TEACHER),oropharyngeal (OP), nasal swab, sputum, and bronchoalveolar lavage (BAL) specimens from patients with signs and symptoms of infection who are suspected of COVID-19. Results are for the identification of SARS-CoV-2 RNA. The SARS-CoV-2 RNA is generally detectable during the acute phase of infection. The Aptima SARS-CoV-2 Assay on the [employer] [employer] system is intended for use by laboratory personnel specifically instructed and trained in the operation of the [employer] [employer] system. The Aptima SARS-CoV-2 assay is [...] information. Performed By: #### 3 1792 #### [facility] [address] [facility] PLAT CNT 118 10*3/uL Low 150-400 [facility] Comment on above: Order Comment: The A ptima SARS-CoV-2 assay is a nucleic acid amplification test intended for the qualitative detection of RNA from SARS-CoV-2 isolated and purified from nasopharyngeal (SDC TEACHER),oropharyngeal (OP), nasal swab, sputum, and bronchoalveolar lavage (BAL) specimens from patients with signs and symptoms of infection who are suspected of COVID-19. Results are for the identification of SARS-CoV-2 RNA. The SARS-CoV-2 RNA is generally detectable during the acute phase of infection. The Aptima SARS-CoV-2 Assay on the [employer] [employer] system is intended for use by laboratory personnel specifically instructed and trained in the operation of the [employer] [employer] system. The Aptima SARS-CoV-2 assay is [...] information. Performed By: #### 3 1792 #### [facility] 3000 [facility]. [address] RBC (Bld) [#/Vol] 4.29 10*6/uL Normal 3.80-5.00 [facility] Comment on above: Order Comment: The A ptima SARS-CoV-2 assay is a nucleic acid amplification test intended for the qualitative detection of RNA from SARS-CoV-2 isolated and purified from nasopharyngeal (SDC TEACHER),oropharyngeal (OP), nasal swab, sputum, and bronchoalveolar lavage (BAL) specimens from patients with signs and symptoms of infection who are suspected of COVID-19. Results are for the identification of SARS-CoV-2 RNA. The SARS-CoV-2 RNA is generally detectable during the acute phase of infection. The Aptima SARS-CoV-2 Assay on the [employer] Fusion system is intended for use by laboratory personnel specifically instructed and trained in the operation of the [place] [employer] system. The Aptima SARS-CoV-2 assay is [...] information. Performed By: #### 3 1792 #### [facility] [address] WBC (Bld) [#/Vol] 3.13 10*3/uL Low 4.00-10.60 [facility] Comment on above: Order Comment: The A ptima SARS-CoV-2 assay is a nucleic acid amplification test intended for the qualitative detection of RNA from SARS-CoV-2 isolated and purified from nasopharyngeal (SDC TEACHER),oropharyngeal (OP), nasal swab, sputum, and bronchoalveolar lavage (BAL) specimens from patients with signs and symptoms of infection who are suspected of COVID-19. Results are for the identification of SARS-CoV-2 RNA. The SARS-CoV-2 RNA is generally detectable during the acute phase of infection. The Aptima SARS-CoV-2 Assay on the [employer] system is intended for use by laboratory personnel specifically instructed and trained in the operation of the [employer] [employer] system. The Aptima SARS-CoV-2 assay is [...] information. Performed By: #### 3 1792 #### [address] CEAon 04-13-2021 CEA 3.2 ng/mL High 0.0-3.0 [facility] Comment on above: Order Comment: No: D o not add to previous draw Performed By: #### 1 0070, [id number] #### [facility] [address] HEPATITIS A ANTIBODY IGMon 06-13-2020 HEP A AB IGM Non-Reactive Normal NONREACTIVE [facility] Comment on above: Performed By: #### 1 69, 59576 #### [facility] 3000 [facility]. [address] HEPATITIS B CORE ANTIBODYon 04-13-2021 HEP B CORE AB Non-Reactive Normal NONREACTIVE [facility] Comment on above: Performed By: #### 1 0, 66245 #### [facility] 3000 [facility]. [address] HEPATITIS B SURFACE ANTIGEN QUALon 04-13-2021 HEP B SURF AG QUAL Non-Reactive Normal NONREACTIVE [facility] Comment on above: Performed By: #### 1 0, 50306 #### [address] [place] [address], [facility] HEPATITIS C ANTIBODYon 04-13 ANTI-HCV Indeterminate Abnormal NONREACTIVE [facility] Comment on above: Performed By: #### 1 69, 72309 #### [facility] [address] [place] [address], [place] MAGNESIUM BLOODon 04-13-2021 Magnesium [Mass/Vol] 2.1 mg/dL Normal 1.9-2.7 [facility] Comment on above: Order Comment: No: D o not add to previous draw Performed By: #### 1 69, 02455 #### [facility] [address] [place] [address], [facility] BASIC METABOLIC PANELon Calcium [Mass/Vol] 8.5 mg/dL Low 8.6-10.3 [facility] Comment on above: Order Comment: No: D o not add to previous draw Performed By: #### 1 69, 21534 #### [facility] [address] [place] [address], [place] Chloride [Moles/Vol] 106 mmol/L Normal 98-107 [facility] Comment on above: Order Comment: No: D o not add to previous draw Performed By: #### 1 69, 06017 #### [facility] [address] [place] [address], [place] CO2 [Moles/Vol] 27 mmol/L Normal 21-31 [facility] Comment on above: Order Comment: No: D o not add to previous draw Performed By: #### 1 69, 17397 #### [facility] [address] [place] [address], [place] Creatinine [Mass/Vol] 1.21 mg/dL High 0.60-1.20 [facility] Comment on above: Order Comment: No: D o not add to previous draw Performed By: #### 1 69, 37183 #### [facility] [address] [place] [address], [facility] eGFR- 55 ml/min/1.73sq m Abnormal >60 [facility] Comment on above: Order Comment: No: D o not add to previous draw Performed By: #### 1 69, 34742 #### [facility] [address] [place] [address], [place] eGFR- non- 45 ml/min/1.73sq m Abnormal >60 [facility] Comment on above: Order Comment: No: D o not add to previous draw Performed By: #### 1 69, 29257 #### [facility] [address] [place] [address], [facility] Glucose [Mass/Vol] 100 mg/dL Normal 70-100 [facility] Comment on above: Order Comment: No: D o not add to previous draw Performed By: #### 1 69, 37520 #### [facility] [address] [place] [address], [place] Potassium [Moles/Vol] 3.6 mmol/L Normal 3.5-5.1 [facility] Comment on above: Order Comment: No: D o not add to previous draw Performed By: #### 1 69, 94807 #### [facility] [address] [place] [address], [place] Sodium [Moles/Vol] 138 mmol/L Normal 136-145 [facility] Comment on above: Order Comment: No: D o not add to previous draw Performed By: #### 1 69, 11355 #### [facility] [address] [place] [address], [place] Urea nitrogen [Mass/Vol] 11 mg/dL Normal 7-25 [facility] Comment on above: Order Comment: No: D o not add to previous draw Performed By: #### 1 69, 46529 #### [facility] [address] [place] [address], [place] CBC COMPLETE BLOOD COUNTon 06-12-2020 Erythrocyte distribution width (RBC) [Ratio] 14.8 % Normal 11.5-15.0 [facility] Comment on above: Order Comment: RH Performed By: #### 3 0313 #### [facility] [address] [place] [address], [facility] Hematocrit (Bld) [Volume fraction] 36.2 % Normal 36.0-45.0 [facility] Comment on above: Order Comment: RH Performed By: #### 3 3 #### [facility] [address] [place] [address], [facility] Hemoglobin (Bld) [Mass/Vol] 11.0 g/dL Low 12.0-15.0 [facility] Comment on above: Order Comment: RH Performed By: #### 3 3 #### [facility] [address] [facility] [place] [address], [facility] MCH (RBC) [Entitic mass] 28.1 pg Normal 27.0-33.0 [facility] Comment on above: Order Comment: RH Performed By: #### 3 0313 #### [facility] [address] [facility] [place] [address], [facility] MCHC (RBC) [Mass/Vol] 30.4 g/dL Low 32.0-35.0 [facility] Comment on above: Order Comment: RH Performed By: #### 3 0313 #### [facility] [address] [place] [address], [facility] MCV (RBC) [Entitic vol] 92.3 fL Normal 82.0-98.0 [facility] Comment on above: Order Comment: RH Performed By: #### 3 3 #### [facility] [address] [place] [id number], [facility] Nucleated RBC/100 WBC (Bld) [Ratio] 0 % Normal 0-0 [facility] Comment on above: Order Comment: RH Performed By: #### 3 0313 #### [facility] [address] [facility] [place] [address], [facility] PLAT CNT 109 10*3/uL Low 150-400 [facility] Comment on above: Order Comment: RH Performed By: #### 3 0313 #### [facility] [address] [facility] [place] [address], [facility] RBC (Bld) [#/Vol] 3.92 10*6/uL Normal 3.80-5.00 [facility] Comment on above: Order Comment: RH Performed By: #### 3 0313 #### [facility] 3000 [facility] [place] [address], [facility] WBC (Bld) [#/Vol] 3.13 10*3/uL Low 4.00-10.60 [facility] Comment on above: Order Comment: RH Performed By: #### 3 0313 #### [facility] 3000 [facility]. [address] MAGNESIUM BLOODon 04-12-2021 Magnesium [Mass/Vol] 2.2 mg/dL Normal 1.9-2.7 [facility] Comment on above: Order Comment: No: D o not add to previous draw Performed By: #### 1 0070, 35117 #### [facility] 3000 [facility]. [address] AMMONIA BLOODon 04-11-2021 Ammonia (P) [Moles/Vol] 30 umol/L Normal 16-53 [facility] Comment on above: Order Comment: Unkno wn Performed By: #### 0 0071, 14262, 51459 #### [facility] [address] [facility]. [address] BASIC METABOLIC PANELon Calcium [Mass/Vol] 8.8 mg/dL Normal 8.6-10.3 [facility] Comment on above: Order Comment: No: D o not add to previous draw Performed By: #### 1 0070, 77337 #### [facility] [address] [place] [address], [place] Chloride [Moles/Vol] 105 mmol/L Normal 98-107 [facility] Comment on above: Order Comment: No: D o not add to previous draw Performed By: #### 1 69, 55351 #### [facility] [address] [place] [address], [place] CO2 [Moles/Vol] 27 mmol/L Normal 21-31 [facility] Comment on above: Order Comment: No: D o not add to previous draw Performed By: #### 1 69, 45709 #### [facility] [address] [place] [address], [place] Creatinine [Mass/Vol] 1.44 mg/dL High 0.60-1.20 [facility] Comment on above: Order Comment: No: D o not add to previous draw Performed By: #### 1 69, 55798 #### [facility] [address] [place] [address], [place] eGFR- 45 ml/min/1.73sq m Abnormal >60 [facility] Comment on above: Order Comment: No: D o not add to previous draw Performed By: #### 1 69, #### [facility] [address] [place] [address], [place] eGFR- non- 37 ml/min/1.73sq m Abnormal >60 [facility] Comment on above: Order Comment: No: D o not add to previous draw Performed By: #### 1 69, 69109 #### [facility] [address] [place] [address], [place] Glucose [Mass/Vol] 135 mg/dL High 70-100 [facility] Comment on above: Order Comment: No: D o not add to previous draw Performed By: #### 1 69, 12913 #### [facility] [address] [place] [address], [facility] Potassium [Moles/Vol] 3.5 mmol/L Normal 3.5-5.1 [facility] Comment on above: Order Comment: No: D o not add to previous draw Performed By: #### 1 69, 65093 #### [facility] [address] [place] [address], [place] Sodium [Moles/Vol] 138 mmol/L Normal 136-145 [facility] Comment on above: Order Comment: No: D o not add to previous draw Performed By: #### 1 69, 28393 #### [facility] [address] [place] [address], [facility] Urea nitrogen [Mass/Vol] 13 mg/dL Normal 7-25 [facility] Comment on above: Order Comment: No: D o not add to previous draw Performed By: #### 1 69, 63760 #### [facility] [address] [place] [address], [facility] CBC COMPLETE BLOOD COUNTon 06-11-2020 Erythrocyte distribution width (RBC) [Ratio] 14.6 % Normal 11.5-15.0 [facility] Comment on above: Order Comment: RH Performed By: #### 3 0313 #### [facility] [address] [place] [address], [facility] Hematocrit (Bld) [Volume fraction] 40.2 % Normal 36.0-45.0 [facility] Comment on above: Order Comment: RH Performed By: #### 3 0313 #### [facility] [address] [place] [address], [facility] Hemoglobin (Bld) [Mass/Vol] 12.2 g/dL Normal 12.0-15.0 [facility] Comment on above: Order Comment: RH Performed By: #### 3 0313 #### [facility] [address] [place] [address], [place] IMM PLATELET FRAC 1.5 % Normal 0.8-6.3 [facility] Comment on above: Order Comment: RH Performed By: #### 3 0313 #### [facility] [address] MCH (RBC) [Entitic mass] 28.0 pg Normal 27.0-33.0 [facility] Comment on above: Order Comment: RH Performed By: #### 3 3 #### [facility] [address] MCHC (RBC) [Mass/Vol] 30.3 g/dL Low 32.0-35.0 [facility] Comment on above: Order Comment: RH Performed By: #### 3 3 #### [facility] [address] MCV (RBC) [Entitic vol] 92.2 fL Normal 82.0-98.0 [facility] Comment on above: Order Comment: RH Performed By: #### 3 3 #### [facility] [address] Nucleated RBC/100 WBC (Bld) [Ratio] 0 % Normal 0-0 [facility] Comment on above: Order Comment: RH Performed By: #### 3 3 #### [facility] [address] [facility] [place] [address], [facility] PLAT CNT 126 10*3/uL Low 150-400 [facility] Comment on above: Order Comment: RH Performed By: #### 3 3 #### [facility] [address] [place] [address], [facility] RBC (Bld) [#/Vol] 4.36 10*6/uL Normal 3.80-5.00 [facility] Comment on above: Order Comment: RH Performed By: #### 3 3 #### [facility] [address] WBC (Bld) [#/Vol] 4.89 10*3/uL Normal 4.00-10.60 [facility] Comment on above: Order Comment: RH Performed By: #### 3 0313 #### [facility] [address] Ed Urine Tox Screen (compoun d)on 04-11-2021 50 THC Positive Abnormal NEGATIVE [facility] Comment on above: Performed By: #### 0 0071, 71126, 76995 #### [facility] [address] BARBITURATES Positive Abnormal NEGATIVE [facility] Comment on above: Performed By: #### 0 0071, 62237, 20332 #### [facility] 3000 [facility] [place] [address], [facility] BENZODIAZEPINES Negative Normal NEGATIVE [facility] Comment on above: Performed By: #### 0 0071, 85753, 25083 #### [facility] [address] [facility] [place] [address], [facility] COCAINE Negative Normal NEGATIVE [facility] Comment on above: Performed By: #### 0 0071, 00984, 60219 #### [facility] [address] [facility] [place] [address], [facility] METHADONE Negative Normal NEGATIVE [facility] Comment on above: Performed By: #### 0 0071, 47705, 23077 #### [facility] [address] [place] [address], [facility] MONO AMPHET Negative Normal NEGATIVE [facility] Comment on above: Performed By: #### 0 0071, 18276, 25768 #### [facility] [address] [place] [address], [facility] OPIATES Negative Normal NEGATIVE [facility] Comment on above: Performed By: #### 0 0071, 40744, 44989 #### [facility] [address] [place] [address], [facility] PHENCYCLIDINE Negative Normal NEGATIVE [facility] Comment on above: Performed By: #### 0 0071, 96329, 32138 #### [facility] [address] [place] [address], [facility] PROPOXYPHENE Negative Normal NEGATIVE [facility] Comment on above: Performed By: #### 0 0071, 14657, 34531 #### [facility] [address] [place] [address], [facility] TRICYCLICS Positive Abnormal NEGATIVE [facility] Comment on above: Performed By: #### 0 0071, 99268, 74903 #### [facility] [address] [place] [address], [facility] FOLATE SERUMon 04-11-2021 SERUM FOLATE 26.00 ng/mL Normal 6.60-1000.00 [facility] Comment on above: Result Comment: Norm al range reflects World Health Organization International Standard 178 Performed By: #### 1 0, 54225 #### [facility] [address] [place] [address], [facility] MAGNESIUM BLOODon 04-11-2021 Magnesium [Mass/Vol] 2.5 mg/dL Normal 1.9-2.7 [facility] Comment on above: Order Comment: No: D o not add to previous draw Performed By: #### 1 0, 64971 #### [facility] [address] [place] [address], [facility] PHOSPHORUS BLOODon Phosphate [Mass/Vol] 2.0 mg/dL Low 2.5-5.0 [facility] Comment on above: Order Comment: No: D o not add to previous draw Performed By: #### 1 0, 89215 #### [facility] [address] [place] [address], [facility] POC SARS COV2 ANTIGEN NEGATI VEon 04-11-2021 POC SARS COV2 ANTIGEN NEG Negative Normal NEGATIVE [facility] Comment on above: Result Comment: Nega [...] signs and symptoms consistent with COVID-19. The [place] COVID-19 Ag Card is a lateral flow [...] Accreditation. Performed By: #### 3 1792 #### [address] TSH3 WITH REFLEX FT4on 04-11 TSH 3RD GENERATION 0.48 uIU/mL Normal 0.34-5.60 [facility] Comment on above: Performed By: #### 1 0070, 44531 #### [facility] [address] URINALYSISon 04-11-2021 Appearance (U) CLEAR Normal CLEAR [facility] Comment on above: Performed By: #### 1 0008 #### [facility] [address] [place] [address], [facility] Bilirubin Ql (U) Negative Normal NEGATIVE [facility] Comment on above: Performed By: #### 1 0008 #### [facility] 3000 [place] [address], [facility] Color (U) YELLOW Normal YELLOW [facility] Comment on above: Performed By: #### 1 0008 #### [facility] [address] [facility] [place] [address], [facility] EPIS MANY Abnormal FEW,OCC,NONE SEEN [facility] Comment on above: Performed By: #### 1 0008 #### [facility] [address] [place] [address], [facility] Glucose Ql (U) Negative Normal NEGATIVE [facility] Comment on above: Performed By: #### 1 0008 #### [facility] [address] [facility] [place] [address], [facility] Hemoglobin Ql (U) Negative Normal NEGATIVE [facility] Comment on above: Performed By: #### 1 0008 #### [facility] [address] [facility] [place] [address], [facility] KETONE Negative Normal NEGATIVE [facility] Comment on above: Performed By: #### 1 0008 #### [facility] [address] [facility] [place] [address], [facility] LEUK CRISTO Negative Normal NEGATIVE [facility] Comment on above: Performed By: #### 1 0008 #### [facility] [address] [facility] [place] [address], [facility] Nitrite Ql (U) Negative Normal NEGATIVE [facility] Comment on above: Performed By: #### 1 0008 #### [facility] [address] [facility] [place] [address], [facility] pH (U) 6.0 [pH] Normal 5.0-8.0 [facility] Comment on above: Performed By: #### 1 0008 #### [facility] [address] [place] [address], [facility] Protein Ql (U) 100 mg/dL Abnormal NEGATIVE [facility] Comment on above: Performed By: #### 1 0008 #### [facility] [address] [facility] [place] [address], [facility] RBC 0-2 Abnormal NONE SEEN [facility] Comment on above: Performed By: #### 1 0008 #### [facility] [address] [facility] [place] [address], [facility] SPEC GRAV 1.048 High 1.015-1.020 [facility] Comment on above: Performed By: #### 1 0008 #### [facility] [address] [facility] [place] [address], [facility] WBC UA 0-2 Abnormal NONE SEEN [facility] Comment on above: Performed By: #### 1 0008 #### [facility] [address] [facility] [place] [address], [place] [id number] [place] [address] VITAMIN B12on 04-11-2021 Cobalamin (Vitamin B12) [Mass/Vol] 1281 pg/mL High 180-914 [facility] Comment on above: Result Comment: REFE RENCE RANGES: 180-914 pg/mL Normal 145-179 pg/mL Indeterminate <145 pg/mL Deficient Performed By: #### 1 0070, 16954 #### [facility] [address] [facility]. [address] VITAMIN D 25-HYDROXYon 04-11 VITAMIN D 25-OH <13.0 Low 30.0-80.0 [facility] Comment on above: Result Comment: >80. 0 Toxicity possible Performed By: #### 1 0070, 24854 #### [facility] [address] [facility] [place] [place] [address], [facility] ALCOHOLon 04-10-2021 Ethanol [Mass/Vol] Not detected Normal [facility] Comment on above: Order Comment: Unkno wn Result Comment: Divi de by 1000 to convert mg/dL to percent. Example: 100mg/dL = 0.1%. Performed By: #### 0 0071, 54887, 83592 #### [facility] [address] [place] [address], [facility] AMMONIA BLOODon 04-10-2021 Ammonia (P) [Moles/Vol] 19 umol/L Normal 16-53 T [facility] Comment on above: Performed By: #### 1 69, 21722 #### [facility] [address] [place] [address], [facility] ARTERIAL BLOOD GAS W/COOXon 04-10-2021 BASE EXCESS -1 mmol/L Normal -2-3 [facility] Comment on above: Performed By: #### 1 69, 43009 #### [facility] [address] [facility] [place] [place] [address], [facility] COHB 1.9 % High 0.0-1.5 [facility] Comment on above: Performed By: #### 1 69, 23956 #### [facility] [address] [facility] [place] [address], [facility] [employer] [place] Normal [facility] Comment on above: Performed By: #### 1 69, 30389 #### [facility] [address] [facility] [place] [address], [facility] HCO3 (Bld) [Moles/Vol] 25 mmol/L Normal 21-28 Th e [facility] Comment on above: Performed By: #### 1 69, 00673 #### [facility] [address] [facility] [place] [address], [facility] LPM 3.0 LPM Normal [facility] Comment on above: Performed By: #### 1 69, 81111 #### [facility] [address] [facility] [place] [place] [address], [facility] METHB 0.9 % Normal 0.0-1.5 [facility] Comment on above: Performed By: #### 1 69, 70733 #### [facility] [address] [place] [address], [facility] Oxygen (Bld) [Partial pressure] 108 mm[Hg] Normal 83-108 [facility] Comment on above: Performed By: #### 1 69, 79740 #### [facility] [address] Oxygen saturation in Blood 96.8 % Normal 94.0-97.0 [facility] Comment on above: Performed By: #### 1 69, 49294 #### [facility] [address] PCO2 47 mmHg High 35-45 [facility] Comment on above: Performed By: #### 1 69, 91657 #### [facility] [address] pH (Bld) 7.34 [pH] Low 7.35-7.45 [facility] Comment on above: Performed By: #### 1 69, 99308 #### [facility] [address] THB 11.7 g/dL Low 12.0-16.3 [facility] Comment on above: Performed By: #### 1 69, 60750 #### [facility] [address] CBC W/DIFFon 04-10-2021 ABS IMM GRANS 0.0 10*3/uL Normal 0.0-0.2 [facility] Comment on above: Performed By: #### 3 312 #### [facility] [address] ABS NEUTROPHILS 3.4 10*3/uL Normal 1.6-7.6 [facility] Comment on above: Performed By: #### 3 312 #### [facility] [address] Basophils (Bld) [#/Vol] 0.0 10*3/uL Normal 0.0-0.2 [facility] Comment on above: Performed By: #### 3 0313 #### [facility] [address] [place] [address], [facility] Basophils/100 WBC (Bld) 0.2 % Normal 0.0-1.0 [facility] Comment on above: Performed By: #### 3 0313 #### [facility] [address] [place] [address], [facility] Eosinophils (Bld) [#/Vol] 0.0 10*3/uL Normal 0.0-0.5 [facility] Comment on above: Performed By: #### 3 0313 #### [facility] [address] [place] [address], [facility] Eosinophils/100 WBC (Bld) 0.4 % Normal 0.0-6.0 [facility] Comment on above: Performed By: #### 3 0313 #### [facility] [address] [facility] [place] [address], [facility] Erythrocyte distribution width (RBC) [Ratio] 14.7 % Normal 11.5-15.0 [facility] Comment on above: Performed By: #### 3 0313 #### [facility] [address] [place] [address], [facility] Hematocrit (Bld) [Volume fraction] 39.4 % Normal 36.0-45.0 [facility] Comment on above: Performed By: #### 3 0313 #### [facility] [address] [facility] [place] [address], [facility] Hemoglobin (Bld) [Mass/Vol] 12.6 g/dL Normal 12.0-15.0 [facility] Comment on above: Performed By: #### 3 0313 #### [facility] [address] [place] [address], [facility] IMM PLATELET FRAC 1.4 % Normal 0.8-6.3 [facility] Comment on above: Performed By: #### 3 0313 #### [facility] [address] [place] [address], [facility] IMMATURE GRANS 0.4 % Normal 0.0-1.0 [facility] Comment on above: Performed By: #### 3 3 #### [facility] [address] [facility] [place] [address], [facility] Lymphocytes (Bld) [#/Vol] 0.9 10*3/uL Low 1.2-4.0 [facility] Comment on above: Performed By: #### 3 0313 #### [facility] [address] [place] [address], [facility] Lymphocytes/100 WBC (Bld) 19.3 % Low 20.0-45.0 [facility] Comment on above: Performed By: #### 3 0313 #### [facility] [address] MCH (RBC) [Entitic mass] 28.7 pg Normal 27.0-33.0 [facility] Comment on above: Performed By: #### 3 0313 #### [facility] [address] [place] [address], [facility] MCHC (RBC) [Mass/Vol] 32.0 g/dL Normal 32.0-35.0 [facility] Comment on above: Performed By: #### 3 0313 #### [facility] [address] [place] [address], [facility] MCV (RBC) [Entitic vol] 89.7 fL Normal 82.0-98.0 T [facility] Comment on above: Performed By: #### 3 0313 #### [facility] [address] [place] [address], [facility] Monocytes (Bld) [#/Vol] 0.4 10*3/uL Normal 0.1-1.0 [facility] Comment on above: Performed By: #### 3 3 #### [facility] [address] [place] [address], [facility] MONOS 7.4 % Normal 5.0-12.0 [facility] Comment on above: Performed By: #### 3 3 #### [facility] [address] [place] [address], [facility] Neutrophils/100 WBC (Bld) 72.3 % High 40.0-72.0 [facility] Comment on above: Performed By: #### 3 3 #### [facility] [address] [facility] [place] [address], [facility] Nucleated RBC/100 WBC (Bld) [Ratio] 0 % Normal 0-0 [facility] Comment on above: Performed By: #### 3 3 #### [facility] [address] [facility] [place] [place] [address], [facility] PLAT CNT 131 10*3/uL Low 150-400 [facility] Comment on above: Performed By: #### 3 3 #### [facility] [address] [facility] [place] [address], [facility] RBC (Bld) [#/Vol] 4.39 10*6/uL Normal 3.80-5.00 [facility] Comment on above: Performed By: #### 3 3 #### [facility] [address] [facility] [place] [address], [facility] WBC (Bld) [#/Vol] 4.72 10*3/uL Normal 4.00-10.60 [facility] Comment on above: Performed By: #### 3 3 #### [facility] [address] [facility]. [address] COMP METABOLIC PANELon 04-10 Albumin [Mass/Vol] 3.9 g/dL Normal 3.5-5.7 [facility] Comment on above: Performed By: #### 0 0071, 36844, 51167 #### [facility] [address] [place] [address], [place] ALKALINE PHOSPH 102 IU/L Normal 34-104 [facility] Comment on above: Performed By: #### 0 0071, 96972, 72009 #### [facility] [address] [place] [address], [place] ALT [Catalytic activity/Vol] 17 U/L Normal 7-52 [facility] Comment on above: Performed By: #### 0 0071, 67737, 16357 #### [facility] [address] [place] [address], [place] AST [Catalytic activity/Vol] 15 U/L Normal 13-39 [facility] Comment on above: Performed By: #### 0 0071, 14252, 26006 #### [facility] [address] [place] [address], [place] Bilirubin [Mass/Vol] 0.9 mg/dL Normal 0.3-1.0 [facility] Comment on above: Performed By: #### 0 0071, 75117, 40717 #### [facility] [address] [place] [address], [place] Calcium [Mass/Vol] 8.8 mg/dL Normal 8.6-10.3 [facility] Comment on above: Performed By: #### 0 0071, 26788, 54051 #### [facility] [address] [place] [address], [place] Chloride [Moles/Vol] 102 mmol/L Normal 98-107 [facility] Comment on above: Performed By: #### 0 0071, 96700, 71227 #### [facility] [address] [place] [address], [place] CO2 [Moles/Vol] 28 mmol/L Normal 21-31 [facility] Comment on above: Performed By: #### 0 0071, 33751, 69108 #### [facility] [address] [place] [address], [facility] Creatinine [Mass/Vol] 1.62 mg/dL High 0.60-1.20 [facility] Comment on above: Performed By: #### 0 0071, 02063, 13556 #### [facility] [address] [place] [address], [facility] eGFR- 39 ml/min/1.73sq m Abnormal >60 [facility] Comment on above: Performed By: #### 0 0071, 47902, 99265 #### [facility] [address] [place] [address], [place] eGFR- non- 33 ml/min/1.73sq m Abnormal >60 [facility] Comment on above: Performed By: #### 0 0071, 80736, 65137 #### [facility] [address] [place] [address], [facility] Glucose [Mass/Vol] 109 mg/dL High 70-100 [facility] Comment on above: Performed By: #### 0 0071, 25991, 07863 #### [facility] [address] [place] [address], [place] Potassium [Moles/Vol] 2.9 mmol/L Low 3.5-5.1 [facility] Comment on above: Performed By: #### 0 0071, 73210, 94612 #### [facility] [address] [place] [address], [place] Protein [Mass/Vol] 5.6 g/dL Low 6.0-8.3 [facility] Comment on above: Performed By: #### 0 0071, 89367, 54653 #### [facility] [address] [place] [address], [place] Sodium [Moles/Vol] 138 mmol/L Normal 136-145 [facility] Comment on above: Performed By: #### 0 0071, 40806, 53113 #### [facility] [address] [facility] [place] [address] [place] [address] [place] [address] Urea nitrogen [Mass/Vol] 14 mg/dL Normal 7-25 [facility] Comment on above: Performed By: #### 0 0071, 66296, 75447 #### [facility] [address] [facility] [address] [place] [address] [place] [address] CT ABDOMEN AND PELVIS W IV C ONTRASTon 04-10-2021 CT ABDOMEN AND PELVIS W IV CONTRAST [facility] Department of Radiology [address] [place] [address] == Patient Name: ALFIE HOGAN : 1960 Sex: F Age: Race: White Pt. Location: [facility] Patient Status: E Ordered Date: 04/10/2021 4:15:00 [...] excluded. Electronically signed: Ami Titus. Transcribed by: [email or web address], User Resident: Electronically Signed by: AMI TITUS @ 04/10/2021 05:35 PM Normal [facility] Comment on above: Order Comment: Obstr uction CT BRAIN WO CONTRASTon 04-10 CT BRAIN WO CONTRAST [facility] Department of Radiology [address] [place] [id number] == Patient Name: ALFIE HOGAN : 1960 Sex: F Age: Race: White Pt. Location: [facility] Patient Status: E Ordered Date: 04/10/2021 4:45:00 [...] bilaterally. Electronically signed: Ami Titus. Transcribed by: [email or web address], User Resident: Electronically Signed by: AMI TITUS @ 04/10/2021 05:27 PM Normal [facility] Comment on above: Order Comment: Subdu ral LIPASE BLOODon 04-10-2021 LIPASE 20 Units/L Normal [facility] Comment on above: Performed By: #### 0 0071, 59106, 01547 #### [address] PORTABLE CHEST 1 VIEWon PORTABLE CHEST 1 VIEW [facility] Department of Radiology [address] [place] [id number] == Patient Name: ALFIE HOGAN : 1960 Sex: F Age: Race: White Pt. Location: [facility] Patient Status: E Ordered Date: 04/10/2021 4:30:00 [...] pneumonia. Electronically signed: Ami Titus. Transcribed by: [email or web address], User Resident: Electronically Signed by: AMI TITUS @ 04/10/2021 05:17 PM Normal [facility] Comment on above: Order Comment: Unkno wn TROPONIN-Ion 04-10-2021 Troponin I.cardiac [Mass/Vol] 0.00 ng/mL Normal 0.00-0.04 [facility] Comment on above: Result Comment: REFE RENCE RANGES: 0.00 - 0.04 ng/ml NORMAL 0.05 - 0.50 ng/ml INDETERMINATE > 0.50 ng/ml CONSISTENT WITH AN M.I. Performed By: #### 0 0071, 30104, 56842 #### [facility] [address] [place] [address], [facility] Basic Metabolic Panelon 08-03 Calcium [Mass/Vol] 9.1 mg/dL Normal 8.4-10.4 [facility] Comment on above: Performed By: #### H EMOG, BMP3M, MG3 #### [facility] [address] [place] [address] Anion gap [Moles/Vol] 6 mmol/L Normal 3-13 [facility] Comment on above: Performed By: #### H EMOShira, BMP3M, MG3 #### [address] CO2 [Moles/Vol] 29 mmol/L Normal 22-30 [facility] Comment on above: Performed By: #### H EMOG, BMP3M, MG3 #### [address] Creatinine [Mass/Vol] 0.96 mg/dL Normal 0.52-1.25 [facility] Comment on above: Performed By: #### H EMOG, BMP3M, MG3 #### [address] GFR/1.73 sq M predicted among blacks MDRD (S/P/Bld) [Vol rate/Area] 75.2 mL/min/{1.73_m2} Normal >60 [facility] Comment on above: Performed By: #### H EMOG, BMP3M, MG3 #### [address] GFR/1.73 sq M predicted among non-blacks MDRD (S/P/Bld) [Vol rate/Area] 64.9 mL/min/{1.73_m2} Normal >60 [facility] Comment on above: Result Comment: KDIG [...] serum creatinine in children is the Bedside Váqsuez equation. It is less accurate in patients with extremes of muscle mass, restriction of dietary protein, ingestion of creatine, extra-renal metabolism of creatinine, or treatment with medications that affect renal tubular creatinine secretion. Performed By: #### H EMOShira, BMP3M, MG3 #### [facility] [address] [place], [place] Glucose [Mass/Vol] 167 mg/dL High 70-100 [facility] Comment on above: Performed By: #### H EMOG, BMP3M, MG3 #### [place] [address] [address] [place], [place] Urea nitrogen [Mass/Vol] 13 mg/dL Normal 7-20 [facility] Comment on above: Performed By: #### H EMOShira, BMP3M, MG3 #### [place] [address] [address] [place], [place] Chloride [Moles/Vol] 102 mmol/L Normal 98-107 [facility] Comment on above: Performed By: #### H EMOShira, BMP3M, MG3 #### [place] [address] [place], [place] Potassium [Moles/Vol] 3.4 mmol/L Low 3.5-5.1 [facility] Comment on above: Performed By: #### H BERNA BMP3M, MG3 #### [place] [address] [place], [place] Sodium [Moles/Vol] 137 mmol/L Normal 135-145 [facility] Comment on above: Performed By: #### H EMOShira, BMP3M, MG3 #### [place] [address] [place], [place] Basic Metabolic Panel w/ Ref kaushal to MG 08-26-2020 Anion gap [Moles/Vol] 6 mmol/L 3 - 13 mmol/L [facility] Work Phone: Calcium [Mass/Vol] 9.1 mg/dL 8.4 - 10. 4 mg/dL [facility] Work Phone: Chloride [Moles/Vol] 102 mmol/L 98 - 10 7 mmol/L [facility] Work Phone: CO2 [Moles/Vol] 29 mmol/L 22 - 30 mmol/L [facility] Work Phone: Creatinine [Mass/Vol] 0.96 mg/dL 0.52 - 1.25 mg/dL [employer] Work Phone: EGFR IF NonAfrican Swiss 64.9 mL/min >60 [employer] Work Phone: Comment on above: KDIGO guidelines [...] MDRD (S/P/Bld) [Vol rate/Area] 75.2 mL/min/{1.73_m2} >60 [facility] Work Phone: [phone] Glucose [Mass/Vol] 167 mg/dL High 70 - 100 mg/dL [employer] Phone: [phone] Potassium [Moles/Vol] 3.4 mmol/L Low 3.5 - 5.1 mmol/L [facility] Work Phone: Sodium [Moles/Vol] 137 mmol/L 135 - 145 mmol/L [employer] Work Phone: Urea nitrogen [Mass/Vol] 13 mg/dL 7 - 20 mg/dL [employer] Phone: CBCon 08-26-2020 Erythrocyte distribution width (RBC) [Ratio] 13.6 % 11.5 - 14.5 % [employer] Phone: Hematocrit (Bld) [Volume fraction] 32.7 % Low 35.0 - 47.0 % [facility] Work Phone: [phone] Hemoglobin (Bld) [Mass/Vol] 10.7 g/dL Low 11.7 - 16.0 g/dL [facility] Work Phone: [phone] Interpretation and review of laboratory results Abnormal [facility] Work Phone: [phone] MCH (RBC) [Entitic mass] 29.0 pg 26.0 - 34.0 pg [facility] Work Phone: [phone] MCHC (RBC) [Mass/Vol] 32.8 % 32.0 - 36.0 % [facility] Work Phone: [phone] MCV (RBC) [Entitic vol] 88.5 fL 79.0 - 98.0 fL [facility] Work Phone: [phone] Platelet mean volume (Bld) [Entitic vol] 8.2 fL 7.4 - 10.4 fL [facility] Work Phone: [phone] Platelets (Bld) [#/Vol] 116 10*3/uL Low 140 - 440 10*3/uL [facility] Work Phone: [phone] RBC (Bld) [#/Vol] 3.70 10*6/uL Low 3.80 - 5.2 0 10*6/uL [facility] Work Phone: [phone] WBC (Bld) [#/Vol] 3.8 10*3/uL 3.6 - 10.7 10*3/uL [facility] Work Phone: [phone] Test Performed by [facility], [address] [place] [address] [facility] Work Phone: [phone] EKG 12 Leadon 08-26-2020 [facility] Test Date: 2020-08-25 Pat Name: Alfie Hogan Department: 1A4N Room: 1446 Gender: F 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 : 1960 Requested By: SARAHY MOTTA Order Number: [id number] Reading MD: Eric Subramanian Measurements Intervals [place] Rate: 93 P: 42 DE: 156 QRS: 66 QRSD: 153 T: -8 QT: 418 QTc: 520 Interpretive Statements Sinus rhythm Right bundle branch block Electronically Signed On 08-26-2020 13:52:00 EDT by Eric GALLO Work Phone: [facility], [facility] In[facility] Card[facility] Results From [facility]/Carlosany - 08/26/2020 1:53 PM EDT [facility] Test Date: 2020-08-25 Pat Name: Alfie Hogan Department: 1A4N Room: 1446 Gender: F 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 : 1960 Requested By: SARAHY MOTTA Order Number: [id number] Reading MD: Eric Subramanian Measurements Intervals [place] Rate: 93 P: 42 DE: 156 QRS: 66 QRSD: 153 T: -8 QT: 418 QTc: 520 Interpretive Statements Sinus rhythm Right bundle branch block Electronically Signed On 08-26-2020 13:52:00 EDT by Eric GALLO Work Phone: Hemogramon 08-26-2020 Erythrocyte distribution width (RBC) [Ratio] 13.6 % Normal 11.5-14.5 [facility] Comment on above: Performed By: #### H EMOG, BMP3M, MG3 #### [facility] [address] [place] [address] Hematocrit (Bld) [Volume fraction] 32.7 % Low 35.0-47.0 [facility] Comment on above: Performed By: #### H EMOG, BMP3M, MG3 #### [employer] [address] [place] [address] Hemoglobin (Bld) [Mass/Vol] 10.7 g/dL Low 11.7-16.0 [facility] Comment on above: Performed By: #### H EMOG, BMP3M, MG3 #### [facility] [address] MCH (RBC) [Entitic mass] 29.0 pg Normal 26.0-34.0 [facility] Comment on above: Performed By: #### H EMOG, BMP3M, MG3 #### [facility] [address] MCHC (RBC) [Mass/Vol] 32.8 % Normal 32.0-36.0 [facility] Comment on above: Performed By: #### H EMOShira, BMP3M, MG3 #### [place] [address] [place], [place] MCV (RBC) [Entitic vol] 88.5 fL Normal 79.0-98.0 [facility] Comment on above: Performed By: #### H EMOG, BMP3M, MG3 #### [place] [address] [place], [place] Platelet mean volume (Bld) [Entitic vol] 8.2 fL Normal 7.4-10.4 [facility] Comment on above: Performed By: #### H EMOG, BMP3M, MG3 #### [place] [address] [place], [place] Platelets (Bld) [#/Vol] 116 10*3/uL Low 140-440 [facility] Comment on above: Performed By: #### H EMOG, BMP3M, MG3 #### [place] [address] [place], [place] RBC (Bld) [#/Vol] 3.70 10*6/uL Low 3.80-5.20 [facility] Comment on above: Performed By: #### H EMOG, BMP3M, MG3 #### [place] [address] [place], [place] WBC (Bld) [#/Vol] 3.8 10*3/uL Normal 3.6-10.7 [facility] Comment on above: Performed By: #### H EMOG, BMP3M, MG3 #### [place] [address] [place], [place] Magnesiumon 08-26-2020 Magnesium [Mass/Vol] 1.5 mg/dL Low 1.6-2.3 [facility] Comment on above: Performed By: #### H EMOG, BMP3M, MG3 #### [place] [address] [place], [place] Magnesium [Mass/Vol] 1.5 mg/dL Low 1.6 - 2 .3 mg/dL [facility] Work Phone: Otheron 08-26-2020 Interpretation and review of laboratory results Abnormal [facility] Work Phone: Test Performed by [facility], [facility] [place] [address] [facility] Work Phone: Add On Lab Teston 08-25-2020 Sodium [Moles/Vol] Accepted [facility] Work Phone: Comment on above: Specimen available & acceptable for analysis. Test Performed by [facility], [facility] [place] [address] [facility] Work Phone: Sodium [Moles/Vol] Accepted [facility] Work Phone: Comment on above: Specimen available & acceptable for analysis. Test Performed by [facility], [facility] [place] [address] [facility] Work Phone: Add on test from HISon 08-25 Add on test from HIS Accepted Normal [facility] Comment on above: Result Comment: Spec imen available & acceptable for analysis. Performed By: #### H BERNA, BMP3M, MG3 #### [facility] [address] [place] [address] Add on test from HIS Accepted Normal [facility] Comment on above: Result Comment: Spec imen available & acceptable for analysis. Performed By: #### H EMOG, BMP3M, MG3 #### [facility] [address] [place] [address] Albuminon 08-25-2020 Albumin [Mass/Vol] 3.4 g/dL Low 3.5 - 5.0 g/dL [facility] Work Phone: Comment on above: Slightly hemolysed, interpret with caution. Interpretation and review of laboratory results Abnormal [facility] Work Phone: Albumin, Serumon 08-25-2020 Albumin [Mass/Vol] 3.4 g/dL Low 3.5-5.0 [facility] Comment on above: Result Comment: Slig htly hemolysed, interpret with caution. Performed By: #### H EMOShira, BMP3M, MG3 #### [facility] [address], [place] Basic Metabolic Panelon -2 Anion gap [Moles/Vol] 7 mmol/L Normal 3-13 [facility] Comment on above: Performed By: #### H EMOShira, BMP3M, MG3 #### [facility] [address], [place] Calcium [Mass/Vol] 7.8 mg/dL Low 8.4-10.4 [facility] Comment on above: Performed By: #### H EMOShira, BMP3M, MG3 #### [place] [address] [place], [place] CO2 [Moles/Vol] 24 mmol/L Normal 22-30 [facility] Comment on above: Performed By: #### H EMOShira, BMP3M, MG3 #### [place] [address] [place], [place] Glucose [Mass/Vol] 156 mg/dL High 70-100 [facility] Comment on above: Performed By: #### H EMOShira, BMP3M, MG3 #### [place] [address] [place], [place] Urea nitrogen [Mass/Vol] 16 mg/dL Normal 7-20 [facility] Comment on above: Performed By: #### H EMOShira, BMP3M, MG3 #### [place] [address] [place], [place] Creatinine [Mass/Vol] 0.89 mg/dL Normal 0.52-1.25 [facility] Comment on above: Performed By: #### H EMOShira, BMP3M, MG3 #### [facility] [address], [place] GFR/1.73 sq M predicted among blacks MDRD (S/P/Bld) [Vol rate/Area] 82.4 mL/min/{1.73_m2} Normal >60 [facility] Comment on above: Performed By: #### H LEYDI CORONEL3M, MG3 #### [address] GFR/1.73 sq M predicted among non-blacks MDRD (S/P/Bld) [Vol rate/Area] 71.1 mL/min/{1.73_m2} Normal >60 [facility] Comment on above: Result Comment: KDIG [...] By: #### H LEYDI CORONEL3Toshia, MG3 #### [address] Chloride [Moles/Vol] 106 mmol/L Normal 98-107 [facility] Comment on above: Performed By: #### H CHERIE CORONEL, MG3 #### [address] Potassium [Moles/Vol] 2.9 mmol/L Low 3.5-5.1 [facility] Comment on above: Result Comment: Slig htly hemolysed, interpret with caution. Performed By: #### H LEYDI CORONEL3M, MG3 #### [address] Sodium [Moles/Vol] 137 mmol/L Normal 135-145 [facility] Comment on above: Performed By: #### H LEYDI CORONEL3M, MG3 #### [address] [place] [address] Basic Metabolic Panel w/ Ref kaushal to MGon 08-25-2020 Anion gap [Moles/Vol] 7 mmol/L 3 - 13 mmol/L [facility] Work Phone: Calcium [Mass/Vol] 7.8 mg/dL Low 8.4 - 10. 4 mg/dL [facility] Work Phone: Chloride [Moles/Vol] 106 mmol/L 98 - 10 7 mmol/L [facility] Work Phone: CO2 [Moles/Vol] 24 mmol/L 22 - 30 mmol/L [facility] Work Phone: Creatinine [Mass/Vol] 0.89 mg/dL 0.52 - 1.25 mg/dL [facility] Work Phone: EGFR IF NonAfrican Swiss 71.1 mL/min >60 [facility] Work Phone: Comment on above: KDIGO guidelines [...] MDRD (S/P/Bld) [Vol rate/Area] 82.4 mL/min/{1.73_m2} >60 [facility] Work Phone: Glucose [Mass/Vol] 156 mg/dL High 70 - 100 mg/dL [facility] Work Phone: Interpretation and review of laboratory results Abnormal [facility] Work Phone: [phone] Potassium [Moles/Vol] 2.9 mmol/L Low 3.5 - 5.1 mmol/L [facility] Work Phone: Comment on above: Slightly hemolysed, interpret with caution. Sodium [Moles/Vol] 137 mmol/L 135 - 145 mmol/L [facility] Work Phone: 1 Urea nitrogen [Mass/Vol] 16 mg/dL 7 - 20 mg/dL [facility] Work Phone: CBCon 08-25-2020 Erythrocyte distribution width (RBC) [Ratio] 13.8 % 11.5 - 14.5 % [facility] Work Phone: Hematocrit (Bld) [Volume fraction] 33.2 % Low 35.0 - 47.0 % [facility] Work Phone: Hemoglobin (Bld) [Mass/Vol] 11.1 g/dL Low 11.7 - 16.0 g/dL [facility] Work Phone: Interpretation and review of laboratory results Abnormal [facility] Work Phone: MCH (RBC) [Entitic mass] 29.9 pg 26.0 - 34.0 pg [facility] Work Phone: MCHC (RBC) [Mass/Vol] 33.4 % 32.0 - 36.0 % [facility] Work Phone: MCV (RBC) [Entitic vol] 89.7 fL 79.0 - 98.0 fL [facility] Work Phone: Platelet mean volume (Bld) [Entitic vol] 8.0 fL 7.4 - 10.4 fL [facility] Work Phone: 222 Platelets (Bld) [#/Vol] 104 10*3/uL Low 140 - 440 10*3/uL [facility] Work Phone: 222 RBC (Bld) [#/Vol] 3.70 10*6/uL Low 3.80 - 5.2 0 10*6/uL [facility] Work Phone: ) 222 WBC (Bld) [#/Vol] 3.2 10*3/uL Low 3.6 - 10.7 10*3/uL [facility] Work Phone: Test Performed by [facility], [address] [place] [address] [facility] Work Phone: Hemogramon 08-25-2020 Erythrocyte distribution width (RBC) [Ratio] 13.8 % Normal 11.5-14.5 [facility] Comment on above: Performed By: #### H EMOG, BMP3M, MG3 #### [place] [address] [place] Hematocrit (Bld) [Volume fraction] 33.2 % Low 35.0-47.0 [facility] Comment on above: Performed By: #### H EMOShira, BMP3M, MG3 #### [address] Hemoglobin (Bld) [Mass/Vol] 11.1 g/dL Low 11.7-16.0 [facility] Comment on above: Performed By: #### H EMOG, BMP3M, MG3 #### [place] [address] [place] MCH (RBC) [Entitic mass] 29.9 pg Normal 26.0-34.0 [facility] Comment on above: Performed By: #### H EMOG, BMP3M, MG3 #### [place] [address] [place] MCHC (RBC) [Mass/Vol] 33.4 % Normal 32.0-36.0 [facility] Comment on above: Performed By: #### H EMOG, BMP3M, MG3 #### [place] [address] [place], [place] MCV (RBC) [Entitic vol] 89.7 fL Normal 79.0-98.0 [facility] Comment on above: Performed By: #### H EMOG, BMP3M, MG3 #### [address] Platelet mean volume (Bld) [Entitic vol] 8.0 fL Normal 7.4-10.4 [facility] Comment on above: Performed By: #### H EMOG, BMP3M, MG3 #### [facility] [address], [place] Platelets (Bld) [#/Vol] 104 10*3/uL Low 140-440 [facility] Comment on above: Performed By: #### H EMOG, BMP3M, MG3 #### [place] [address] [place], [place] RBC (Bld) [#/Vol] 3.70 10*6/uL Low 3.80-5.20 [facility] Comment on above: Performed By: #### H EMOG, BMP3M, MG3 #### [place] [address] [place], [place] WBC (Bld) [#/Vol] 3.2 10*3/uL Low 3.6-10.7 [facility] Comment on above: Performed By: #### H EMOG, BMP3M, MG3 #### [place] [address] [place], [place] Lactic Acidon 08-25-2020 Lactate [Moles/Vol] 1.7 mmol/L Normal 0.7-2.0 [facility] Comment on above: Performed By: #### H EMOG, BMP3M, MG3 #### [place] [address] [place], [place] Lactate [Moles/Vol] 2.3 mmol/L Critically high 0.7-2.0 [facility] Comment on above: Performed By: #### H EMOG, BMP3M, MG3 #### [place] [address] [place], [place] Lactate [Moles/Vol] 1.1 mmol/L Normal 0.7-2.0 [facility] Comment on above: Performed By: #### C MP3, HEMDF, PHOS3, LACT3, MG3, ETOH4, QWAL #### [place] [address] [place], [place] Lactic Acid, Plasmaon 2020 Lactate [Moles/Vol] 1.7 mmol/L 0.7 - 2. 0 mmol/L [facility] Work Phone: [phone] Test Performed by [facility], [address] [place] [address] [facility] Work Phone: [phone] Interpretation and review of laboratory results Abnormal [facility] Work Phone: [phone] Lactate [Moles/Vol] 2.3 mmol/L Critically high 0.7 - 2.0 mmol/L [facility] Work Phone: [phone] Test Performed by [facility], [address] [place] [address] [facility] Work Phone: [phone] Lactate [Moles/Vol] 1.1 mmol/L 0.7 - 2. 0 mmol/L [facility] Work Phone: [phone] Test Performed by [facility], [address] [place] [address] [facility] Work Phone: [phone] Magnesiumon 08-25-2020 Magnesium [Mass/Vol] 1.8 mg/dL Normal 1.6-2.3 [facility] Comment on above: Result Comment: Slig htly hemolysed, interpret with caution. Performed By: #### H EMOG, BMP3M, MG3 #### [facility] [address] [address] Magnesium [Mass/Vol] 1.8 mg/dL 1.6 - 2 .3 mg/dL [facility] Work Phone: [phone] Comment on above: Slightly hemolysed, interpret with caution. Otheron 08-25-2020 Test Performed by [facility], [address] [place] [address] [facility] Work Phone: [phone] Test Performed by [facility], [address] [place] [address] [facility] Work Phone: [phone] Phosphoruson 08-25-2020 Phosphate [Mass/Vol] 3.1 mg/dL Normal 2.5-4.5 [facility] Comment on above: Result Comment: Slig htly hemolysed, interpret with caution. Performed By: #### H EMOG, BMP3M, MG3 #### [facility] [place] [place] [address] Phosphate [Mass/Vol] 3.1 mg/dL 2.5 - 4 .5 mg/dL [facility] Work Phone: Comment on above: Slightly hemolysed, interpret with caution. Add On Lab Teston 08-24-2020 Sodium [Moles/Vol] Accepted [facility] Work Phone: Comment on above: Specimen available & acceptable for analysis. Test Performed by [facility], [address] [place] [address] [facility] Work Phone: Add on test from HISon 08-24 Add on test from HIS Accepted Normal [facility] Comment on above: Result Comment: Spec imen available & acceptable for analysis. Performed By: #### H EMOG, BMP3M, MG3 #### [facility] [place] [address] COVID-19on 08-24-2020 SARS-CoV-2 Not Detected. Not Detected [facility] Work Phone: Comment on above: Not Detected. Expected Result: Not Detected _ Real-time, RT-PCR performed on the [employer] by the [facility] Microbiology Service. Negative results do not preclude SARS-CoV-2 infection and should not be used as the sole basis for treatment or other patient management decisions. This assay was developed by [employer] and distributed under an Emergency Use Authorization (EUA) granted by the FDA for the qualitative detection of SARS-CoV-2 nucleic acid. Test [facility] by [facility], [address] [place] [address] Comp Metabolic Panelon 08-24 ALP [Catalytic activity/Vol] 106 U/L Normal 38-126 [facility] Comment on above: Performed By: #### C MP3, HEMDF, PHOS3, LACT3, MG3, ETOH4, QWAL #### [facility] [place] [address] ALT [Catalytic activity/Vol] 28 U/L Normal 0-34 [facility] Comment on above: Result Comment: The ALT test is performed by an updated assay method. Please note that the reference intervals have been changed and are now sex specific. Performed By: #### C MP3, HEMDF, PHOS3, LACT3, MG3, ETOH4, QWAL #### [place] [address] [address] [place], [place] Calcium [Mass/Vol] 9.4 mg/dL Normal 8.4-10.4 [facility] Comment on above: Performed By: #### C MP3, HEMDF, PHOS3, LACT3, MG3, ETOH4, QWAL #### [place] [address] [place], [place] Glucose [Mass/Vol] 164 mg/dL High 70-100 [facility] Comment on above: Performed By: #### C MP3, HEMDF, PHOS3, LACT3, MG3, ETOH4, QWAL #### [place] [address] [place] Urea nitrogen [Mass/Vol] 15 mg/dL Normal 7-20 [facility] Comment on above: Performed By: #### C MP3, HEMDF, PHOS3, LACT3, MG3, ETOH4, QWAL #### [place] [address] [place] Anion gap [Moles/Vol] 15 mmol/L High 3-13 [facility] Comment on above: Performed By: #### C MP3, HEMDF, PHOS3, LACT3, MG3, ETOH4, QWAL #### [place] [address] [place] AST [Catalytic activity/Vol] 35 U/L Normal 15-46 [facility] Comment on above: Performed By: #### C MP3, HEMDF, PHOS3, LACT3, MG3, ETOH4, QWAL #### [place] [address] [place] Bilirubin [Mass/Vol] 0.9 mg/dL Normal 0.2-1.3 [facility] Comment on above: Performed By: #### C MP3, HEMDF, PHOS3, LACT3, MG3, ETOH4, QWAL #### [address] CO2 [Moles/Vol] 25 mmol/L Normal 22-30 [facility] Comment on above: Performed By: #### C MP3, HEMDF, PHOS3, LACT3, MG3, ETOH4, QWAL #### [address] Creatinine [Mass/Vol] 1.00 mg/dL Normal 0.52-1.25 [facility] Comment on above: Performed By: #### C MP3, HEMDF, PHOS3, LACT3, MG3, ETOH4, QWAL #### [address] GFR/1.73 sq M predicted among blacks MDRD (S/P/Bld) [Vol rate/Area] 71.6 mL/min/{1.73_m2} Normal >60 [facility] Comment on above: Performed By: #### C MP3, HEMDF, PHOS3, LACT3, MG3, ETOH4, QWAL #### [address] GFR/1.73 sq M predicted among non-blacks MDRD (S/P/Bld) [Vol rate/Area] 61.7 mL/min/{1.73_m2} Normal >60 [facility] Comment on above: Result Comment: KDIG [...] HEMDF, PHOS3, LACT3, MG3, ETOH4, QWAL #### [place] [address] [address] [place], [place] Protein [Mass/Vol] 7.5 g/dL Normal 6.3-8.2 [facility] Comment on above: Performed By: #### C MP3, HEMDF, PHOS3, LACT3, MG3, ETOH4, QWAL #### [place] [address] [address] [place], [place] Chloride [Moles/Vol] 100 mmol/L Normal 98-107 [facility] Comment on above: Performed By: #### C MP3, HEMDF, PHOS3, LACT3, MG3, ETOH4, QWAL #### [place] [address] [address] [place], [place] Potassium [Moles/Vol] 3.4 mmol/L Low 3.5-5.1 [facility] Comment on above: Performed By: #### C MP3, HEMDF, PHOS3, LACT3, MG3, ETOH4, QWAL #### [place] [address] [address] [place], [place] Sodium [Moles/Vol] 140 mmol/L Normal 135-145 [facility] Comment on above: Performed By: #### C MP3, HEMDF, PHOS3, LACT3, MG3, ETOH4, QWAL #### [place] [address] [address] [place], [place] Albumin [Mass/Vol] 4.9 g/dL Normal 3.5-5.0 [facility] Comment on above: Performed By: #### C MP3, HEMDF, PHOS3, LACT3, MG3, ETOH4, QWAL #### [place] [address] [address] [place], [place] Comprehensive Metabolic Pane angela 08-24-2020 Albumin [Mass/Vol] 4.9 g/dL 3.5 - 5.0 g/dL [facility] Work Phone: ALP [Catalytic activity/Vol] 106 U/L 38 - 126 U/L [facility] Work Phone: ALT [Catalytic activity/Vol] 28 U/L 0 - 34 U/L [facility] Work Phone: Comment on above: The ALT test is perf ormed by an updated assay method. Please note that the reference intervals have been changed and are now sex specific. Anion gap [Moles/Vol] 15 mmol/L High 3 - 13 mmol/L [facility] Work Phone: AST [Catalytic activity/Vol] 35 U/L 15 - 46 U/L [facility] Work Phone: [phone] Bilirubin Ql (U) 0.9 mg/dL 0.2 - 1.3 mg/dL [facility] Work Phone: Calcium [Mass/Vol] 9.4 mg/dL 8.4 - 10. 4 mg/dL [facility] Work Phone: [phone] Chloride [Moles/Vol] 100 mmol/L 98 - 10 7 mmol/L [facility] Work Phone: [phone] CO2 [Moles/Vol] 25 mmol/L 22 - 30 mmol/L [facility] Work Phone: Creatinine [Mass/Vol] 1 mg/dL 0.52 - 1.25 mg/dL [facility] Work Phone: EGFR IF NonAfrican Swiss 61.7 mL/min >60 [facility] Work Phone: Comment on above: KDIGO guidelines [...] MDRD (S/P/Bld) [Vol rate/Area] 71.6 mL/min/{1.73_m2} >60 [facility] Work Phone: Glucose [Mass/Vol] 164 mg/dL High 70 - 100 mg/dL [facility] Work Phone: Potassium [Moles/Vol] 3.4 mmol/L Low 3.5 - 5.1 mmol/L [facility] Work Phone: Protein [Mass/Vol] 7.5 g/dL 6.3 - 8.2 g/dL [facility] Work Phone: Sodium [Moles/Vol] 140 mmol/L 135 - 145 mmol/L [facility] Work Phone: Urea nitrogen [Mass/Vol] 15 mg/dL 7 - 20 mg/dL [facility] Work Phone: Drugs of Abuseon 08-24-2020 Phencyclidine (PCP), Ur Negative Normal [facility] Comment on above: Result Comment: The expected [...] By: #### H LEYDI CORONEL3M, MG3 #### [facility] [address] [place] [address] Methadone, Ur Negative [facility] Comment on above: Performed By: #### H EMOG, BMP3M, MG3 #### [facility] [address] [place] [address] Opiates, Ur Negative Normal [facility] Comment on above: Performed By: #### H EMOG, BMP3M, MG3 #### [facility] [address], [place] Cocaine, Ur Negative Normal [facility] Comment on above: Performed By: #### H EMOG, BMP3M, MG3 #### [facility] [address], [place] Benzodiazepines, Ur Negative Normal [facility] Comment on above: Performed By: #### H EMOG, BMP3M, MG3 #### [facility] [address], [place] Amphetamines, Ur Negative Normal [facility] Comment on above: Performed By: #### H EMOG, BMP3M, MG3 #### [facility] [address], [place] Barbiturates, Ur Positive Normal [facility] Comment on above: Performed By: #### H EMOG, BMP3M, MG3 #### [facility] [address], [place] Oxycodone/Oxymorphine,U r Negative Normal [facility] Comment on above: Performed By: #### H EMOG, BMP3M, MG3 #### [facility] [address], [place] ED Provider Noteon ED Provider Note [facility] EMERGENCY DEPT EMERGENCY DEPARTMENT ENCOUNTER Pt Name: [...] file Gets together: Not on file Attends advent service: Not on file Active member of [...] within normal limits Narrative: Test Performed by [facility] [address] CBC WITH AUTO DIFFERENTIAL - Abnormal; Notable for the following components: Granulocytes % 80.6 (*) Lymphocyte % 13.6 (*) Eosinophils 0.3 (*) All other components within normal limits Narrative: Test Performed by [facility] [address] [place] [address] LACTIC ACID, PLASMA - Abnormal; Notable for the following components: Lactic Acid 3.2 (*) All other components within normal limits Narrative: Test Performed by [facility], [address] [place] [address] ETHANOL - Abnormal; Notable for the following components: Ethanol Lvl 0.071 (*) All other components within normal limits Narrative: [facility], [address] [place] [address] COVID-19 HCG, SERUM, QUALITATIVE URINALYSIS URINE DRUG [...] AM PATIENT REFERRED TO: Bernardino Moran MD [address] [place] [address], [address] [facility] [address] DISCHARGE MEDICATIONS: New Prescriptions No medications on file (Please note: Portions of this note were completed with a voice recognition program. 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1960 Requested By: JANNA MEDINA Order Number: [id number] Demond [place]: Maycol Varma Measurements Intervals [place] Rate: 99 P: 62 DE: 145 QRS: 89 QRSD: 150 T: -45 QT: 382 QTc: 491 Interpretive Statements Sinus rhythm Right bundle branch block NONSPECIFIC REPOL ABNORMALITY, LATERAL LEADS Electronically Signed On 08-24-2020 19:53:32 EDT by Maycol Varma [facility] Work Phone: [facility], [facility] Incoming Cardiology Results From [facility] - 08/24/2020 7:54 PM EDT [facility] Test Date: 2020-08-24 Pat Name: Alfie Hogan Department: [facility] Room: 1463 Gender: F 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 Analysis performed using non-forensic procedures. Ethanol Serum/Plasmaon 08-24 Ethanol-Serum/Plasma 0.071 g/dL High 0.000-0.010 [facility] Comment on above: Result Comment: NOTE : This result is for medical treatment only. Analysis performed using non-forensic procedures. Performed By: #### C MP3, HEMDF, PHOS3, LACT3, MG3, ETOH4, QWAL #### [facility] [address] [place] [phone] HCG Qualitative, Serumon hCG Qual Negative m[IU]/mL [facility] Work Phone: Comment on above: Reference Range: NEG ATIVE Effective 08/15/2019, the reference interval for the qualitative test has been updated. This test detects hCG at concentrations of 10 mIU/L or greater in serum. Test Performed by [facility], [address] [place] [address] [facility] Work Phone: Hemogram (CBC) w/Auto Diffon 08-24-2020 Absolute Baso # 0.0 10*3/uL 0.0 - 0.2 10*3/uL [facility] Work Phone: Absolute Neut # 6.2 10*3/uL 1.8 - 7.0 10*3/uL [facility] Work Phone: Basophils/100 WBC (Bld) 0.2 % 0.0 - 2.0 % [facility] Work Phone: Eosinophils (Bld) [#/Vol] 0.0 10*3/uL 0.0 - 0.5 10*3/uL [facility] Work Phone: 1) 222 Eosinophils/100 WBC (Bld) 0.3 % Low 1.0 - 6.0 % [facility] Work Phone: 1) 222 Erythrocyte distribution width (RBC) [Ratio] 14.1 % 11.5 - 14.5 % [facility] Work Phone: 1) 222 Granulocytes/100 WBC (Bld) 80.6 % High 40.0 - 80.0 % [facility] Work Phone: ) 222 Hematocrit (Bld) [Volume fraction] 41.0 % 35.0 - 47.0 % [facility] Work Phone: ) 222 Hemoglobin (Bld) [Mass/Vol] 13.9 g/dL 11.7 - 16.0 g/dL [facility] Work Phone: ) 222 Interpretation and review of laboratory results Abnormal [facility] Work Phone: ) 222 Lymphocytes (Bld) [#/Vol] 1.0 10*3/uL 1.0 - 4.3 10*3/uL [facility] Work Phone: 1) 222 Lymphocytes/100 WBC (Bld) 13.6 % Low 20.0 - 40.0 % [facility] Work Phone: ) 222 MCH (RBC) [Entitic mass] 29.8 pg 26.0 - 34.0 pg [facility] Work Phone: ) 222 MCHC (RBC) [Mass/Vol] 33.9 % 32.0 - 36.0 % [facility] Work Phone: ) 222 MCV (RBC) [Entitic vol] 88.0 fL 79.0 - 98.0 fL [facility] Work Phone: 1) 222 Monocytes (Bld) [#/Vol] 0.4 10*3/uL 0.0 - 0.8 10*3/uL [facility] Work Phone: 1) 222 Monocytes/100 WBC (Bld) 5.3 % 2.0 - 10.0 % [facility] Work Phone: 1) 222 Platelet mean volume (Bld) [Entitic vol] 8.1 fL 7.4 - 10.4 fL [facility] Work Phone: Platelets (Bld) [#/Vol] 174 10*3/uL 140 - 440 10*3/uL [facility] Work Phone: RBC (Bld) [#/Vol] 4.65 10*6/uL 3.80 - 5.2 0 10*6/uL [facility] Work Phone: WBC (Bld) [#/Vol] 7.7 10*3/uL 3.6 - 10.7 10*3/uL [facility] Work Phone: Test Performed by [facility], [address] [place] [id number] [facility] Work Phone: Hemogram w/ Autodiffon 08-24 Abs Baso Cnt 0.0 10*3/uL Normal 0.0-0.2 [facility] Comment on above: Performed By: #### C MP3, HEMDF, PHOS3, LACT3, MG3, ETOH4, QWAL #### [address] [address] Abs Neutrophile Cnt 6.2 10*3/uL Normal 1.8-7.0 [facility] Comment on above: Performed By: #### C MP3, HEMDF, PHOS3, LACT3, MG3, ETOH4, QWAL #### [address] [address] Basophils/100 WBC (Bld) 0.2 % Normal 0.0-2.0 [facility] Comment on above: Performed By: #### C MP3, HEMDF, PHOS3, LACT3, MG3, ETOH4, QWAL #### [address] [address] Eosinophils (Bld) [#/Vol] 0.0 10*3/uL Normal 0.0-0.5 [facility] Comment on above: Performed By: #### C MP3, HEMDF, PHOS3, LACT3, MG3, ETOH4, QWAL #### [address] [place], [place] Eosinophils/100 WBC (Bld) 0.3 % Low 1.0-6.0 [facility] Comment on above: Performed By: #### C MP3, HEMDF, PHOS3, LACT3, MG3, ETOH4, QWAL #### [address] [address] [place], [place] Erythrocyte distribution width (RBC) [Ratio] 14.1 % Normal 11.5-14.5 [facility] Comment on above: Performed By: #### C MP3, HEMDF, PHOS3, LACT3, MG3, ETOH4, QWAL #### [address] [address] [place], [place] Granulocytes/100 WBC (Bld) 80.6 % High 40.0-80.0 [facility] Comment on above: Performed By: #### C MP3, HEMDF, PHOS3, LACT3, MG3, ETOH4, QWAL #### [address] [address] [place], [place] Hematocrit (Bld) [Volume fraction] 41.0 % Normal 35.0-47.0 [facility] Comment on above: Performed By: #### C MP3, HEMDF, PHOS3, LACT3, MG3, ETOH4, QWAL #### [address] [address] [place], [place] Hemoglobin (Bld) [Mass/Vol] 13.9 g/dL Normal 11.7-16.0 [facility] Comment on above: Performed By: #### C MP3, HEMDF, PHOS3, LACT3, MG3, ETOH4, QWAL #### [address] Lymphocytes (Bld) [#/Vol] 1.0 10*3/uL Normal 1.0-4.3 [facility] Comment on above: Performed By: #### C MP3, HEMDF, PHOS3, LACT3, MG3, ETOH4, QWAL #### [address] [address] [place], [place] Lymphocytes/100 WBC (Bld) 13.6 % Low 20.0-40.0 [facility] Comment on above: Performed By: #### C MP3, HEMDF, PHOS3, LACT3, MG3, ETOH4, QWAL #### [address] MCH (RBC) [Entitic mass] 29.8 pg Normal 26.0-34.0 [facility] Comment on above: Performed By: #### C MP3, HEMDF, PHOS3, LACT3, MG3, ETOH4, QWAL #### [address] [address] [place], [place] MCHC (RBC) [Mass/Vol] 33.9 % Normal 32.0-36.0 [facility] Comment on above: Performed By: #### C MP3, HEMDF, PHOS3, LACT3, MG3, ETOH4, QWAL #### [address] MCV (RBC) [Entitic vol] 88.0 fL Normal 79.0-98.0 [facility] Comment on above: Performed By: #### C MP3, HEMDF, PHOS3, LACT3, MG3, ETOH4, QWAL #### [address] Monocytes (Bld) [#/Vol] 0.4 10*3/uL Normal 0.0-0.8 [facility] Comment on above: Performed By: #### C MP3, HEMDF, PHOS3, LACT3, MG3, ETOH4, QWAL #### [address] Monocytes/100 WBC (Bld) 5.3 % Normal 2.0-10.0 [facility] Comment on above: Performed By: #### C MP3, HEMDF, PHOS3, LACT3, MG3, ETOH4, QWAL #### [address] Platelet mean volume (Bld) [Entitic vol] 8.1 fL Normal 7.4-10.4 [facility] Comment on above: Performed By: #### C MP3, HEMDF, PHOS3, LACT3, MG3, ETOH4, QWAL #### [address] [address] [place], [place] Platelets (Bld) [#/Vol] 174 10*3/uL Normal 140-440 [facility] Comment on above: Performed By: #### C MP3, HEMDF, PHOS3, LACT3, MG3, ETOH4, QWAL #### [address] RBC (Bld) [#/Vol] 4.65 10*6/uL Normal 3.80-5.20 [facility] Comment on above: Performed By: #### C MP3, HEMDF, PHOS3, LACT3, MG3, ETOH4, QWAL #### [address] WBC (Bld) [#/Vol] 7.7 10*3/uL Normal 3.6-10.7 [facility] Comment on above: Performed By: #### C MP3, HEMDF, PHOS3, LACT3, MG3, ETOH4, QWAL #### [address] Lactic Acidon 08-24-2020 Lactate [Moles/Vol] 1.3 mmol/L Normal 0.7-2.0 [facility] Comment on above: Performed By: #### H EMOG, BMP3M, MG3 #### [address] Lactate [Moles/Vol] 3.2 mmol/L Critically high 0.7-2.0 [facility] Comment on above: Result Comment: Crit ica Panic Lactate has fallen below the [facility] CCL/ED Panic Call Protocol. For [facility] ED patients ONLY the Lactate Levels greater than 2.0 and less than or equal to 4.0 mmol/L fall under the Panic Call Policy. Performed By: #### C MP3, HEMDF, PHOS3, LACT3, MG3, ETOH4, QWAL #### [address] [address] Lactic Acid, Plasmaon 2020 Lactate [Moles/Vol] 1.3 mmol/L 0.7 - 2. 0 mmol/L [facility] Work Phone: [phone] Test Performed by [facility], [address] [place] [address] [facility] Work Phone: [phone] Interpretation and review of laboratory results Abnormal [facility] Work Phone: [phone] Lactate [Moles/Vol] 3.2 mmol/L Critically high 0.7 - 2.0 mmol/L [facility] Work Phone: [phone] Comment on above: Critical Panic Lacta te has fallen below the [facility] CCL/ED Panic Call Protocol. For [facility] ED patients ONLY the Lactate Levels greater than 2.0 and less than or equal to 4.0 mmol/L fall under the Panic Call Policy. Test Performed by [facility], [address] [place] [id number] [facility] Work Phone: [phone] Magnesiumon 08-24-2020 Magnesium [Mass/Vol] 1.4 mg/dL Low 1.6-2.3 [facility] Comment on above: Performed By: #### C MP3, HEMDF, PHOS3, LACT3, MG3, ETOH4, QWAL #### [address] [address] Interpretation and review of laboratory results Abnormal [facility] Work Phone: [phone] Magnesium [Mass/Vol] 1.4 mg/dL Low 1.6 - 2 .3 mg/dL [facility] Work Phone: [phone] Otheron 08-24-2020 Test Performed by [facility], [address] [place] [address] [facility] Work Phone: [phone] Interpretation and review of laboratory results Abnormal [facility] Work Phone: [phone] Test Performed by [facility], [address] [place] [address] [facility] Work Phone: [phone] Phosphoruson 08-24-2020 Phosphate [Mass/Vol] 2.9 mg/dL Normal 2.5-4.5 [facility] Comment on above: Performed By: #### C MP3, HEMDF, PHOS3, LACT3, MG3, ETOH4, QWAL #### [facility] [address] [place] [address] Phosphate [Mass/Vol] 2.9 mg/dL 2.5 - 4 .5 mg/dL [facility] Work Phone: [id number] 08-24-2020 SARS-CoV-2 SARS-CoV-2 --> Statu s: F Not Detected. Expected Result: Not Detected _ Real-time, RT-PCR performed on the [employer] System by the [facility] Microbiology Service. Negative results do not preclude SARS-CoV-2 infection and should not be used as the sole basis for treatment or other patient management decisions. This assay was developed by [employer] and distributed under an Emergency Use Authorization (EUA) granted by the FDA for the qualitative detection of SARS-CoV-2 nucleic acid. Expected Result: Not Detected _ Real-time, RT-PCR performed on the [employer]ree[employer] System by the [facility] Microbiology Service. Negative results do not preclude SARS-CoV-2 infection and should not be used as the sole basis for treatment or other patient management decisions. This assay was developed by [employer] and distributed under an Emergency Use Authorization (EUA) granted by the FDA for the qualitative detection of SARS-CoV-2 nucleic acid. Normal [facility] Comment on above: Performed By: #### H EMOG, BMP3M, MG3 #### [facility] [address] [place] [address] Urine Drug Screenon 08-25-19 21 Amphetamines, urine Negative [facility] Work Phone: Barbiturates, Ur Positive [facility] Work Phone: [phone] Benzodiazepine Ur Qual Negative [facility] Work Phone: [phone] Cocaine Metabolites, Ur Negative [facility] Work Phone: [phone] Methadone, Urine Negative [facility] Work Phone: [phone] Opiates, Urine Negative [facility] Work Phone: [phone] Oxycodone Screen, Ur Negative [facility] Work Phone: PCP, Urine Negative [facility] Work Phone: Comment on above: The expected [...] confirmation under separate order. Test Performed by [facility], [address] [place] [address] [facility] Work Phone: hCG Qual Pregon 08-24-2020 hCG Qual Preg Negative Normal [facility] Comment on above: Result Comment: Refe rence Range: NEGATIVE Effective 08/15/2019, the reference interval for the qualitative test has been updated. This test detects hCG at concentrations of 10 mIU/L or greater in serum. Performed By: #### C MP3, HEMDF, PHOS3, LACT3, MG3, ETOH4, QWAL #### [address] [address] PROGRESSon 08-19-2020 PROGRESS HNO ID: [id number] Author: Prince Nieves (Ex Phys) Massacci Service: ? Author Type: Assistive Technology Specialist Type: Progress Notes Filed: 08/19/2020 7:39 AM Note Text: -------- Attestation signed by Manjit Gupta at 08/20/2020 11:02 AM I have had direct contact with this patient within the past 30 days. I reviewed the aforegoing individualized treatment plan and recommend it for the next 30 days, based on the patient's progress in the program. Name: Manjit Gupta MD Clarifier, Pulmonary Rehabilitation Date: August 20, 2020 -------- [facility] DEPARTMENT OF PULMONARY REHABILITATION Individual Treatment Plan - 30 Day Assessment Patient Name: Alfie Hogan Date: 08/19/2020 Primary Care Physician: Bernardino Moran MD Reason for Consult: RLD Referring Physician: Cesia Howe MD Pulmonary Rehab 30 Day Assessment: Program Location: [place] Program: Pulmonary Phase II Session: 5 Diagnosis: [...] Severe Deconditioning: Improve conditioning through exercise at [place] and home Weight Management: Dietary Modification;Exercise Hypertension: Continue Medication;Dietary Modification;Exercise;We ight Loss;Stress Management;Keep BP Log Education: See covered education Weight: 283.7 BMI: <40 Patient Understands Intervention: Yes 30 Day Other Core Components Improvement Goals OTHER CORE COMPONENTS IMPROVEMENT GOAL Medication: Inhaled;Oral;Compliance Exacerbation: No exacerbations while enrolled in [place] program Frequent Hospitalizations: No hospitalizations while enrolled in [place] program Severe Deconditioning: Improve conditioning and 6 [...] treatment plan to referring physician and medical information specialist for review and recommendations for changes. Lucina Chang August 19, 2020 7:38 AM [facility] PROGRESSon 08-12-2020 PROGRESS HNO ID: [id number] Author: Prince Nieves (Ex Ernesto) Laquita Service: ? Author Type: Assistive Technology Specialist Type: Progress Notes Filed: 08/12/2020 12:06 PM [...] Daily Exercise Log will be scanned into [employer] once it is completed. These can be [...] Chang Phy August 12, 2020 12:05 PM [facility] PROGRESSon 08-10-2020 PROGRESS HNO ID: [id number] Author: Prince Ezequiel Gonzalez PhysToshia Hernandezchao Service: ? Author Type: Assistive Technology Specialist Type: Progress Notes Filed: 08/10/2020 12:06 PM [...] Daily Exercise Log will be scanned into [employer] once it is completed. These can be [...] Chang Phy August 10, 2020 12:06 PM [facility] PROGRESSon 08-05-2020 PROGRESS HNO ID: [id number] Author: Prince Roth PhysToshia Coelho Service: ? Author Type: Assistive Technology Specialist Type: Progress Notes Filed: 08/05/2020 12:09 PM Note Text: [facility] DEPARTMENT OF PULMONARY REHABILITATION Individualized Treatment Plan [...] Daily Exercise Log will be scanned into [employer] once it is completed. These can be [...] Lucina Phy August 05, 2020 12:08 PM [facility] PROGRESSon 08-03-2020 PROGRESS HNO ID: [id number] Author: Prince HectorEx Ernesto) Laquita Service: ? Author Type: Assistive Technology Specialist Type: Progress Notes Filed: 08/03/2020 12:16 PM Note Text: [facility] DEPARTMENT OF PULMONARY REHABILITATION Individualized Treatment Plan - Daily Assessment Patient Name: Alfie FRANCON: [id number] Date: 08/03/2020 Primary Care Physician: Bernardino Moran [...] Daily Exercise Log will be scanned into [employer] once it is completed. These can be [...] Lucina Chang August 03, 2020 12:15 PM [facility] PROGRESSon 07-27-2020 PROGRESS HNO ID: [id number] Author: Prince Coelho (Ex Phys) Service: ? Author Type: Assistive Technology Specialist Type: Progress Notes Filed: 07/27/2020 12:21 PM [...] Daily Exercise Log will be scanned into [employer] once it is completed. These can be [...] Lucina Chang July 27, 2020 12:20 PM [facility] PROGRESSon 07-26-2020 PROGRESS HNO ID: [id number] Author: Galo Jameson (Ex Phys) Service: ? Author Type: Assistive Technology Specialist Type: Progress Notes Filed: 07/26/2020 2:47 PM Note Text: -------- Attestation signed by Manjit Gupta at 07/26/2020 3:56 PM I have reviewed the patient's clinical status and pre-pulmonary rehabilitation outcomes assessment documentation. I approve the individualized treatment plan for pulmonary rehabilitation for the next 30 days. Name: Manjit Gupta MD Clarifier, Pulmonary Rehabilitation Date: July 26, 2020 -------- [...] - APPENDECTOMY - COLONOSCOP [facility]/ [facility]2005 [facility] Colonoscopy - EGD W/O [facility] SPECIMEN W/BX 08/30/06 - EGD W/O [facility] SPECIMEN W/BX 04/11/11 - LAP CHOLECYSTECT/CHOLANGIOGR APHY [...] visit. Initial Pulmonary Rehab Assessment: Program Location: [place] Program: Pulmonary Phase II Session: Intake Diagnosis: [...] of home ex on days not in [place] Other: Increase Endurance;Increase Strength;Decrease SOB with Exercise [...] Medication: Inhaled;Compliance Exacerbation: no exacerbation while in [place] Frequent Hospitalizations: no hospitalization while in [place] Severe Deconditioning: increase 6 MWT by at [...] on Questionnaires;Improved CAT Assessment Test Score Received [facility]?s Pulmonary Disease and Community Resource Guide: Yes [...] necessary. Performed face to face with medical information specialist. Will review and seek input from Clarifier and referring physician. Galo Jameson,Ex Phys 07/26/2020 2:46 PM Normal [facility] Hepatic Functionon Albumin [Mass/Vol] 3.6 g/dL Normal 3.5-5.0 [facility] Comment on above: Performed By: #### H EMOG, BMP3M, MG3 #### [address] ALP [Catalytic activity/Vol] 93 U/L Normal 38-126 [facility] Comment on above: Performed By: #### H EMOG, BMP3M, MG3 #### [address] ALT [Catalytic activity/Vol] 117 U/L High 0-34 [facility] Comment on above: Result Comment: The ALT test is performed by an updated assay method. Please note that the reference intervals have been changed and are now sex specific. Performed By: #### H EMOG, BMP3M, MG3 #### [address] AST [Catalytic activity/Vol] 94 U/L High 15-46 [facility] Comment on above: Performed By: #### H EMOG, BMP3M, MG3 #### [address] [address] Bilirubin [Mass/Vol] 0.5 mg/dL Normal 0.2-1.3 [facility] Comment on above: Performed By: #### H LEYDI CORONEL3Toshia, MG3 #### [facility] [address] [place] [address] Bilirubin.direct [Mass/Vol] 0.0 mg/dL Normal 0.0-0.3 [facility] Comment on above: Performed By: #### H LEYDI CORONEL3M, MG3 #### [facility] [address] [place] [address] Protein [Mass/Vol] 6.0 g/dL Low 6.3-8.2 [facility] Comment on above: Performed By: #### H LEYDI CORONEL3M, MG3 #### [facility] [address] [place] [address] Hepatic Function Panelon Albumin [Mass/Vol] 3.6 g/dL 3.5 - 5 g/dL [place], [place] ALP [Catalytic activity/Vol] 93 U/L 38 - 126 U/L [place], [place] ALT [Catalytic activity/Vol] 117 U/L High 0 - 34 U/L [place], [place] Comment on above: The ALT test is perf ormed by an updated assay method. Please note that the reference intervals have been changed and are now sex specific. AST [Catalytic activity/Vol] 94 U/L High 15 - 46 U/L [place], [place] Bilirubin Ql (U) 0.5 mg/dL 0.2 - 1.3 mg/dL [place], [place] Bilirubin.direct [Mass/Vol] 0.0 mg/dL 0 - 0.3 mg/dL [place], [place] Interpretation and review of laboratory results Abnormal [place], [place] Protein [Mass/Vol] 6.0 g/dL Low 6.3 - 8.2 g/dL [place], [place] Test Performed by [facility], [address] [place] [id number] [place] [address] Phenobarbitalon 07-10-2020 Phenobarbital [Mass/Vol] 23.2 ug/mL Normal 15.0-40.0 [facility] Comment on above: Performed By: #### H EMOG, BMP3M, MG3 #### [address] Phenobarbital Levelon 2020 Phenobarbital [Mass/Vol] 23.2 ug/mL 15 - 40 ug/mL [facility], [place] Test Performed by [facility], [address] [place] [id number] [place] [address], [place] Complete Urinalysison 2020 Appearance (U) Clear Normal Clear [facility] Comment on above: Result Comment: . Performed By: #### C MP3, HEMDF, PHOS3, LACT3, MG3, ETOH4, QWAL #### [address] Bacteria LM.HPF (Urine sed) [#/Area] Few Abnormal Negative [facility] Comment on above: Result Comment: . Performed By: #### C MP3, HEMDF, PHOS3, LACT3, MG3, ETOH4, QWAL #### [address] Bilirubin,Urine Negative Normal Negative [facility] Comment on above: Result Comment: . Performed By: #### C MP3, HEMDF, PHOS3, LACT3, MG3, ETOH4, QWAL #### [address] Cast, Hyaline Negative Normal Negative [facility] Comment on above: Result Comment: . Performed By: #### C MP3, HEMDF, PHOS3, LACT3, MG3, ETOH4, QWAL #### [address] Color (U) Light-Yellow Normal Lt. Yellow [facility] Comment on above: Result Comment: . Performed By: #### C MP3, HEMDF, PHOS3, LACT3, MG3, ETOH4, QWAL #### [address] [address] [place], [place] Glucose Ql (U) Normal Normal Normal (<70) [facility] Comment on above: Result Comment: . Performed By: #### C MP3, HEMDF, PHOS3, LACT3, MG3, ETOH4, QWAL #### [address] [address] [place], [place] Ketone,Urine Negative Normal Negative [facility] Comment on above: Result Comment: . Performed By: #### C MP3, HEMDF, PHOS3, LACT3, MG3, ETOH4, QWAL #### [address] [address] [place], [place] Leukocytes,Urine Negative Normal Negative [facility] Comment on above: Result Comment: . Performed By: #### C MP3, HEMDF, PHOS3, LACT3, MG3, ETOH4, QWAL #### [address] [address] [place], [place] Nitrites,Urine Negative Normal Negative [facility] Comment on above: Result Comment: . Performed By: #### C MP3, HEMDF, PHOS3, LACT3, MG3, ETOH4, QWAL #### [address] [address] [place], [place] Occult Blood,Urine 0.1 mg/dL Abnormal Negative [facility] Comment on above: Result Comment: . Performed By: #### C MP3, HEMDF, PHOS3, LACT3, MG3, ETOH4, QWAL #### [address] [address] [place], [place] pH (U) 6.0 Normal 5.0-8.0 [facility] Comment on above: Result Comment: . Performed By: #### C MP3, HEMDF, PHOS3, LACT3, MG3, ETOH4, QWAL #### [address] [address] [place], [place] Protein (U) [Mass/Vol] 100 mg/dL Abnormal Negative [facility] Comment on above: Result Comment: . Performed By: #### C MP3, HEMDF, PHOS3, LACT3, MG3, ETOH4, QWAL #### [address] [address] [place], [place] RBC LM.HPF (Urine sed) [#/Area] 0 - 2 Normal 0-2 [facility] Comment on above: Result Comment: . Performed By: #### C MP3, HEMDF, PHOS3, LACT3, MG3, ETOH4, QWAL #### [facility] [address] [place], [place] Specific [place],Urine 1.010 Normal 1.005 - 1.030 [facility] Comment on above: Result Comment: . Performed By: #### C MP3, HEMDF, PHOS3, LACT3, MG3, ETOH4, QWAL #### [facility] [address] [place], [place] Squamous Epithelial 3 - 5 Normal 3-5 [facility] Comment on above: Result Comment: . Performed By: #### C MP3, HEMDF, PHOS3, LACT3, MG3, ETOH4, QWAL #### [address] [address] [place], [place] Urobilinogen,Urine Normal Normal Normal (0-1) [facility] Comment on above: Result Comment: . Performed By: #### C MP3, HEMDF, PHOS3, LACT3, MG3, ETOH4, QWAL #### [facility] [address] [place], [place] WBC LM.HPF (Urine sed) [#/Area] 3 - 5 Normal 0-5 [facility] Comment on above: Result Comment: . Performed By: #### C MP3, HEMDF, PHOS3, LACT3, MG3, ETOH4, QWAL #### [facility] [address] [place], [place] COVID-19on 07-06-2020 SARS-CoV-2 Not Detected. Not Detected [facility], [place] Comment on above: Not Detected. Expected Result: Not Detected _ Real-time, RT-PCR performed on the [employer]ree[employer] System by the [facility] Microbiology Service. Negative results do not preclude SARS-CoV-2 infection and should not be used as the sole basis for treatment or other patient management decisions. This assay was developed by [employer] and distributed under an Emergency Use Authorization (EUA) granted by the FDA for the qualitative detection of SARS-CoV-2 nucleic acid. Test Performed by [facility], [address] [place] [id number] Comp Metabolic Panelon 07-06 ALT [Catalytic activity/Vol] 195 U/L High 0-34 [facility] Comment on above: Result Comment: The ALT test is performed by an updated assay method. Please note that the reference intervals have been changed and are now sex specific. Performed By: #### H EMOShira BMP3M, MG3 #### [facility] [address] [place], [place] Calcium [Mass/Vol] 9.4 mg/dL Normal 8.4-10.4 [facility] Comment on above: Performed By: #### H EMOShira BMP3M, MG3 #### [address] Glucose [Mass/Vol] 133 mg/dL High 70-100 [facility] Comment on above: Performed By: #### H EMOG BMP3M, MG3 #### [address] [address] [place], [place] Urea nitrogen [Mass/Vol] 15 mg/dL Normal 7-20 [facility] Comment on above: Performed By: #### H EMOShira BMP3M, MG3 #### [address] [address] [place], [place] ALP [Catalytic activity/Vol] 135 U/L High 38-126 [facility] Comment on above: Performed By: #### H EMOShira BMP3M, MG3 #### [facility] [address] [place], [place] Anion gap [Moles/Vol] 13 Normal [facility] Comment on above: Performed By: #### H EMOG, BMP3M, MG3 #### [facility] [address] [place], [place] AST [Catalytic activity/Vol] 375 U/L High 15-46 [facility] Comment on above: Performed By: #### H EMOG BMP3M, MG3 #### [address] [address] [place], [place] Bilirubin [Mass/Vol] 1.3 mg/dL Normal 0.2-1.3 [facility] Comment on above: Performed By: #### H BERNA BMP3M, MG3 #### [address] CO2 [Moles/Vol] 31 mmol/L High 22-30 [facility] Comment on above: Performed By: #### H THOMG, BMP3M, MG3 #### [address] Creatinine [Mass/Vol] 1.04 mg/dL Normal 0.52-1.25 [facility] Comment on above: Performed By: #### H EMOG, BMP3M, MG3 #### [address] GFR/1.73 sq M predicted among blacks MDRD (S/P/Bld) [Vol rate/Area] 68.3 mL/min/{1.73_m2} Normal >60 [facility] [facility] Comment on above: Performed By: #### H BERNA, BMP3M, MG3 #### [address] GFR/1.73 sq M predicted among non-blacks MDRD (S/P/Bld) [Vol rate/Area] 58.9 mL/min/{1.73_m2} Abnormal >60 [facility] Comment on above: Result Comment: KDIG [...] By: #### H CHERIE CORONEL MG3 #### [address] [place] [address] Protein [Mass/Vol] 7.5 g/dL Normal 6.3-8.2 [facility] Comment on above: Performed By: #### H CHERIE CORONEL MG3 #### [address] [place], [place] Chloride [Moles/Vol] 97 mmol/L Low 98-107 [facility] Comment on above: Performed By: #### H CHERIE CORONEL MG3 #### [address] [place], [place] Potassium [Moles/Vol] 3.6 mmol/L Normal 3.5-5.1 [facility] Comment on above: Performed By: #### H CHERIE CORONEL MG3 #### [address] [place] [address] Sodium [Moles/Vol] 140 mmol/L Normal 135-145 [facility] Comment on above: Performed By: #### H CHERIE CORONEL MG3 #### [address] [place] [address] Albumin [Mass/Vol] 5.0 g/dL Normal 3.5-5.0 [facility] Comment on above: Performed By: #### H CHERIE CORONEL MG3 #### [address] [place] [address] Comprehensive Metabolic Pane angela 07-06-2020 Albumin [Mass/Vol] 5.0 g/dL 3.5 - 5 g/dL [place], [place] ALP [Catalytic activity/Vol] 135 U/L High 38 - 126 U/L [place] ALT [Catalytic activity/Vol] 195 U/L High 0 - 34 U/L [place] Comment on above: The ALT test is perf ormed by an updated assay method. Please note that the reference intervals have been changed and are now sex specific. Anion gap [Moles/Vol] 13 mmol/L [place], [place] AST [Catalytic activity/Vol] 375 U/L High 15 - 46 U/L [place] Bilirubin Ql (U) 1.3 mg/dL 0.2 - 1.3 mg/dL [place] Calcium [Mass/Vol] 9.4 mg/dL 8.4 - 10. 4 mg/dL [place] Chloride [Moles/Vol] 97 mmol/L Low 98 - 10 7 mmol/L [place] CO2 [Moles/Vol] 31 mmol/L High 22 - 30 mmol/L [place] Creatinine [Mass/Vol] 1.04 mg/dL 0.52 - 1.25 mg/dL [place] EGFR IF NonAfrican Swiss 58.9 mL/min Abnormal >60 [place] Comment on above: KDIGO guidelines pro [...] MDRD (S/P/Bld) [Vol rate/Area] 68.3 mL/min/{1.73_m2} >60 [place] Glucose [Mass/Vol] 133 mg/dL High 70 - 100 mg/dL [place] Interpretation and review of laboratory results Abnormal [place] Potassium [Moles/Vol] 3.6 mmol/L 3.5 - 5.1 mmol/L [place] Protein [Mass/Vol] 7.5 g/dL 6.3 - 8.2 g/dL [place] Sodium [Moles/Vol] 140 mmol/L 135 - 145 mmol/L [place] Urea nitrogen [Mass/Vol] 15 mg/dL 7 - 20 mg/dL [place] Test Performed by [facility], [address], [place] [address] [place], [place] Drugs of Abuseon 07-06-2020 Phencyclidine (PCP), Ur Negative Normal [facility] Comment on above: Result Comment: The expected [...] By: #### H BERNA BMP3M, MG3 #### [address] [facility], [place] Methadone, Ur Negative Normal [facility] Comment on above: Performed By: #### H EMOG BMP3M, MG3 #### [address] [place], [place] Opiates, Ur Negative Normal [facility] Comment on above: Performed By: #### H EMOG BMP3M, MG3 #### [address] [facility], [place] Cocaine, Ur Negative Normal [facility] Comment on above: Performed By: #### H EMOG BMP3M, MG3 #### [address] [place] [address] Amphetamines, Ur Negative Normal [facility] Comment on above: Performed By: #### H EMOG, BMP3M, MG3 #### [facility] [address] [place] [address] Barbiturates, Ur Negative Normal [facility] Comment on above: Performed By: #### H EMOG, BMP3M, MG3 #### [facility] [address] [place] [address] Benzodiazepines, Ur Negative Normal [facility] Comment on above: Performed By: #### H EMOG, BMP3M, MG3 #### [address] [facility] [address] [place] [address] Oxycodone/Oxymorphine,U r Negative Normal [facility] Comment on above: Performed By: #### H EMOG, BMP3M, MG3 #### [employer] [facility] [address] [place] [address] ED Provider Noteon ED Provider Note Emergency Department Encounter [facility] EMERGENCY DEPT Patient: Alfie Hogan : 1960 Date of Evaluation: 07/06/2020 ED Provider: MARKIE Gonzales As the [id number], I performed a medical screening history and [...] [employer] MARKIE Gonzales 07/06/20 1557 [facility] Patient: Alfie Hogan : 1960 Date of Evaluation: 07/06/2020 ED [facility]IL[facility] Provider: Michelet Long PA-C ChiefComplaint Chief Complaint Patient presents with ? Alcohol Problem pt presents requesting alcohol detox, states she drinks about 1.5 bottles of wine/day, last drink around 2pm [place] Alfie Hogan is a 59 y.o. female [...] otherwise acutely negative except as in the [place]. Past History Past Medical History: Diagnosis Date [...] on phone: None Gets together: None Attends advent service: None Active member of club or [...] (*) Glucose 133 (*) EGFR IF NonAfrican Swiss 58.9 (*) Alkaline Phosphatase 135 (*) ALT 195 (*) AST 375 (*) All other components within normal limits Narrative: Test Performed by [facility], [address] [place] [address] CBC WITH AUTO DIFFERENTIAL - Abnormal; Notable for the following components: Eosinophils 0.1 (*) All other components within normal limits Narrative: Test Performed by [facility], [address] [place] [address] ETHANOL - Abnormal; Notable for the following components: Ethanol Lvl 0.348 (*) All other components within normal limits Narrative: Test Performed by [facility], [address] [place] [address] URINE DRUG SCREEN Narrative: Test Performed by [facility], [address] [place] [address] COVID-19 Radiographs: No results found. Procedures: N/A EKG: All EKG's are interpreted by the Emergency Department Physician in the absence of a elevator pilot. Please see their note for interpretation of [...] plan for detox admission, patient admitted to [facility] in stable condition. Final Impression 1. Alcohol dependence with uncomplicated withdrawal (HCC) DISPOSITION Admitted 07/06/2020 08:24:12 PM (Please note that portions of this note may have been completed with a voice recognition program.Efforts were made to edit the dictations but occasionally words are mis-transcribed.) Michelet Long PA-C [employer] Michelet Long PA-C 07/06/20 2120 Normal [facility] Ethanolon 07-06-2020 Ethanol Lvl 0.348 g/dL Critically high 0 - 0.01 g/dL [facility], [place] Comment on above: NOTE: This result is for medical treatment only. Analysis performed using non-forensic procedures. Interpretation and review of laboratory results Abnormal [place] Test Performed by [facility], [address] [place] [address] [place] Ethanol Serum/Plasmaon 07-06 Ethanol-Serum/Plasma 0.348 g/dL Critically high 0.000-0.01 0 [facility] Comment on above: Result Comment: NOTE : This result is for medical treatment only. Analysis performed using non-forensic procedures. Performed By: #### H EMOG, BMP3M, MG3 #### [address] [address] Hemogram (CBC) w/Auto Diffon 07-06-2020 Absolute Baso # 0.1 10*3/uL 0 - 0.2 10*3/uL [place] Absolute Neut # 4.5 10*3/uL 1.8 - 7 10*3/uL [place] Basophils/100 WBC (Bld) 0.9 % 0 - 2 % [place] Eosinophils (Bld) [#/Vol] 0.0 10*3/uL 0 - 0.5 10*3/uL [place] Eosinophils/100 WBC (Bld) 0.1 % Low 1 - 6 % [place] Erythrocyte distribution width (RBC) [Ratio] 14.5 % 11.5 - 14.5 % [place] Granulocytes/100 WBC (Bld) 68.4 % 40 - 80 % [place] Hematocrit (Bld) [Volume fraction] 40.3 % 35 - 47 % [place] Hemoglobin (Bld) [Mass/Vol] 13.4 g/dL 11.7 - 16 g/dL [place] Interpretation and review of laboratory results Abnormal [place] Lymphocytes (Bld) [#/Vol] 1.6 10*3/uL 1 - 4.3 10*3/uL [place] Lymphocytes/100 WBC (Bld) 24.4 % 20 - 40 % [place] MCH (RBC) [Entitic mass] 31.7 pg 26 - 34 pg [place] MCHC (RBC) [Mass/Vol] 33.3 % 32 - 36 % [place], [place] MCV (RBC) [Entitic vol] 95.2 fL 79 - 98 fL [place], [place] Monocytes (Bld) [#/Vol] 0.4 10*3/uL 0 - 0.8 10*3/uL [place] Monocytes/100 WBC (Bld) 6.2 % 2 - 10 % [place] Platelet mean volume (Bld) [Entitic vol] 7.9 fL 7.4 - 10.4 fL [place] Platelets (Bld) [#/Vol] 248 10*3/uL 140 - 440 10*3/uL [place] RBC (Bld) [#/Vol] 4.24 10*6/uL 3.8 - 5.2 10*6/uL [place] WBC (Bld) [#/Vol] 6.6 10*3/uL 3.6 - 10.7 10*3/uL [place] Test Performed by [facility], [address] [place] [id number] [place] [address] Hemogram w/ Autodiffon 07-06 Abs Baso Cnt 0.1 10*3/uL Normal 0.0-0.2 [facility] Comment on above: Performed By: #### H LEYDI CORONEL3M, MG3 #### [address] [address] Abs Neutrophile Cnt 4.5 10*3/uL Normal 1.8-7.0 [facility] Comment on above: Performed By: #### H LEYDI CORONEL3M, MG3 #### [address] [address] Basophils/100 WBC (Bld) 0.9 % Normal 0.0-2.0 [facility] Comment on above: Performed By: #### H LEYDI CORONEL3M, MG3 #### [address] Eosinophils (Bld) [#/Vol] 0.0 10*3/uL Normal 0.0-0.5 [facility] Comment on above: Performed By: #### H EMOShira BMP3M, MG3 #### [facility] [address] [place], [place] Eosinophils/100 WBC (Bld) 0.1 % Low 1.0-6.0 [facility] Comment on above: Performed By: #### H EMOShira, BMP3M, MG3 #### [address] [place], [place] Erythrocyte distribution width (RBC) [Ratio] 14.5 % Normal 11.5-14.5 [facility] Comment on above: Performed By: #### H EMOShira, BMP3M, MG3 #### [address] [place], [place] Granulocytes/100 WBC (Bld) 68.4 % Normal 40.0-80.0 [facility] Comment on above: Performed By: #### H EMOShira, BMP3M, MG3 #### [address] [place], [place] Hematocrit (Bld) [Volume fraction] 40.3 % Normal 35.0-47.0 [facility] Comment on above: Performed By: #### H EMOG, BMP3M, MG3 #### [address] [place], [place] Hemoglobin (Bld) [Mass/Vol] 13.4 g/dL Normal 11.7-16.0 [facility] Comment on above: Performed By: #### H EMOG, BMP3M, MG3 #### [address] [place] Lymphocytes (Bld) [#/Vol] 1.6 10*3/uL Normal 1.0-4.3 [facility] Comment on above: Performed By: #### H EMOG, BMP3M, MG3 #### [address] [place] Lymphocytes/100 WBC (Bld) 24.4 % Normal 20.0-40.0 [facility] Comment on above: Performed By: #### H EMOShira, BMP3M, MG3 #### [address] [place] MCH (RBC) [Entitic mass] 31.7 pg Normal 26.0-34.0 [facility] Comment on above: Performed By: #### H EMOG, BMP3M, MG3 #### [address] [place] MCHC (RBC) [Mass/Vol] 33.3 % Normal 32.0-36.0 [facility] Comment on above: Performed By: #### H EMOShira, BMP3M, MG3 #### [address] MCV (RBC) [Entitic vol] 95.2 fL Normal 79.0-98.0 [facility] Comment on above: Performed By: #### H EMOG, BMP3M, MG3 #### [address] [place], [place] Monocytes (Bld) [#/Vol] 0.4 10*3/uL Normal 0.0-0.8 [facility] Comment on above: Performed By: #### H EMOG, BMP3M, MG3 #### [address] Monocytes/100 WBC (Bld) 6.2 % Normal 2.0-10.0 [facility] Comment on above: Performed By: #### H EMOG, BMP3M, MG3 #### [address] [place], [place] Platelet mean volume (Bld) [Entitic vol] 7.9 fL Normal 7.4-10.4 [facility] Comment on above: Performed By: #### H EMOG, BMP3M, MG3 #### [address] Platelets (Bld) [#/Vol] 248 10*3/uL Normal 140-440 [facility] Comment on above: Performed By: #### H EMOG, BMP3M, MG3 #### [facility] [address] [place], [place] RBC (Bld) [#/Vol] 4.24 10*6/uL Normal 3.80-5.20 [facility] Comment on above: Performed By: #### H EMOG, BMP3M, MG3 #### [facility] [address] [place], [place] WBC (Bld) [#/Vol] 6.6 10*3/uL Normal 3.6-10.7 [facility] Comment on above: Performed By: #### H EMOShira, BMP3M, MG3 #### [facility] [address] [place], [place] [id number] 07-06-2020 SARS-CoV-2 SARS-CoV-2 --> Statu s: F Not Detected. Expected Result: Not Detected _ Real-time, RT-PCR performed on the [employer]ree[employer] System by the [facility] Microbiology Service. Negative results do not preclude SARS-CoV-2 infection and should not be used as the sole basis for treatment or other patient management decisions. This assay was developed by [employer] and distributed under an Emergency Use Authorization (EUA) granted by the FDA for the qualitative detection of SARS-CoV-2 nucleic acid. Expected Result: Not Detected _ Real-time, RT-PCR performed on the [employer]ree[employer] System by the [facility] Microbiology Service. Negative results do not preclude SARS-CoV-2 infection and should not be used as the sole basis for treatment or other patient management decisions. This assay was developed by [employer] and distributed under an Emergency Use Authorization (EUA) granted by the FDA for the qualitative detection of SARS-CoV-2 nucleic acid. Normal [facility] Comment on above: Performed By: #### H EMOShira, BMP3M, MG3 #### [facility] [address] [place], [place] Urinalysison 07-06-2020 Appearance (U) Clear [facility] Comment on above: . Bacteria, UA Few Abnormal Negative /[HPF] [place] Comment on above: . Bilirubin Urine Negative Negative mg/dL [place] Comment on above: . Color (U) Light-Yellow Lt. Yellow NA [place] Comment on above: . Glucose, Ur Normal Normal (<70) mg/dL [place] Comment on above: . Hyaline Casts, UA Negative Negative /[LPF] [place] Comment on above: . Interpretation and review of laboratory results Abnormal [place] Ketones Ql (U) Negative Negative mg/dL [place] Comment on above: . LEUKOCYTES, UA Negative Negative Philipp/uL [place] Comment on above: . Nitrite, Urine Negative Negative NA [place] Comment on above: . Occult Blood,Urine 0.1 mg/dL Abnormal Negative [place] Comment on above: . pH (U) 6.0 [pH] [place] Comment on above: . Protein (U) [Mass/Vol] 100 mg/dL Abnormal Negative [place], [place] Comment on above: . RBC (U) [#/Vol] 0-2 0 - 2 /[[facility]] [place] Comment on above: . Specific [place], Urine 1.010 [place] Comment on above: . Squam Epithel, UA 3-5 3 - 5 /[HPF] [place] Comment on above: . Urobilinogen, Urine Normal Normal ( 0-1) mg/dL [place] Comment on above: . WBC, UA 3-5 0 - 5 /[HPF] [place] Comment on above: . Test Performed by [facility], [address] [place] [address] [place] Urine Drug Screenon 07-06-19 21 Amphetamines, urine Negative [place] Barbiturates, Ur Negative [place] Benzodiazepine Ur Qual Negative [place], [place] Cocaine Metabolites, Ur Negative [place] Methadone, Urine Negative [place] Opiates, Urine Negative [place] Oxycodone Screen, Ur Negative [place], [place] PCP, Urine Negative [place] Comment on above: The expected value [...] confirmation under separate order. Test Performed by [facility], [address] [place] [address] [place] GI FLUORO CHEST SNIFF TESTon 05-31-2020 GI FLUORO CHEST SNIFF TEST * * *Final Report* * * DATE OF EXAM: May 31 2020 9:46AM [facility] 5536 - GI FLUORO CHEST SNIFF [...] of the diaphragms, right less than left. Social Services Specialist: PSCMaria Alejandra Transcribe Date/Time: May 31 2020 10:50A Dictated by : VICKIE WINTERS MD This examination was interpreted and the report reviewed and electronically signed by: VICKIE WINTERS MD on May 31 2020 10:52AM EST [id number] [facility] 05-17-2020 [facility] Telephone (CDPLM) -------- ALFIE HOGAN ([id number]) 1960 F Date Time Provider Department 05/17/20 GALO JAMESON (EX PHYS) [facility] During your visit today, we recorded the following information about you: Lucina Booth 05/17/2020 9:45 AM Signed Spoke to patient about Pulm Rehab at [place] [facility] to start 07-08-2020 at 12pm. Pt [...] Encounter Status:Closed by GALO JAMESON on 05/17/20 [facility] 04-19-2020 [facility] HNO ID: [id number] Author: SHEKHAR Trivedi (Ct) Service: Radiology Author Type: Clinical 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 Type: Allied Health Filed: 04/19/2020 10:00 AM [...] SHEKHAR Trivedi April 19, 2020 10:00 AM [facility] CT CHEST WO IVCONon 04-19-[address] CHEST WO IVCON * * *Final Report* * * DATE OF EXAM: Apr 19 2020 10:01AM [facility] 0541 - CT CHEST WO IVCON / [...] exam. Vascular calcifications in the upper abdomen. Gas Plant Specialist (topogram) images: No additional findings. IMPRESSION: No [...] should be performed in the outpatient setting. [employer] 2015 Social Services Specialist: BHUPENDRA Transcribe Date/Time: Apr 19 2020 11:06A Dictated by : YURI PRICE MD This examination was interpreted and the report reviewed and electronically signed by: YURI PRICE MD on Apr 19 2020 11:15AM EST [id number] [facility] NM LUNG VENT / PERF VQon NM LUNG VENT / PERF VQ * * *Final Report * * * DATE OF EXAM: Apr 19 2020 9:50AM [facility] 0032 - [place] LUNG VENT / PERF VQ / PROCEDURE [...] criteria. IMPRESSION: * LOW probability perfusion scan. Social Services Specialist: BHUPENDRA Transcribe Date/Time: Apr 19 2020 10:33A Dictated by : JOSE ALFREDO KAT MD This examination was interpreted and the report reviewed and electronically signed by: JOSE ALFREDO KAT MD on Apr 19 2020 10:38AM EST [id number] [facility] PROGRESSon 04-19-2020 PROGRESS HNO ID: [id number] Author: Bridgette ([facility]) Tasha, SHEKHAR Service: Radiology Author Type: Clinical 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 Type: Progress Notes Filed: 04/19/2020 10:22 AM [...] safety can be found using this link: [email or web address] [email or web address] SIGNATURE: KEYSHAWN Carmichael PATIENT NAME: Alfie Hogan DATE: April 19, 2020 TIME: 10:20 AM PAGER/CONTACT #: Normal [facility] Lipid Panelon 04-13-2020 Cholesterol [Mass/Vol] 197 mg/dL <200 [place] Cholesterol in HDL [Mass/Vol] 104 mg/dL High 40 - 60 mg/dL [place] Cholesterol in LDL [Mass/Vol] 38 mg/dL <100 [place] Cholesterol.total/Adriana sterol in HDL [Mass ratio] 2 {ratio} [facility] [place] Comment on above: Ref Range: < 3 Low Risk for CHD 3-6 Mod Risk for CHD > 6 High Risk for CHD Interpretation and review of laboratory results Abnormal [facility] [place] Triglyceride [Mass/Vol] 274 mg/dL Abnormal <150 M [facility] [employer] Test Performed by [facility], [address] [place], [place] [address] [place], [place] [address] ESRon 12-11-2019 ESR (Bld) [Velocity] 8 mm/h Normal 0-30 [facility] ([place]) Comment on above: Performed By: #### C BC, ADIFF, ANEU, LAC, CRP, MG, TSH, CMP, GFR, DIMER, ESR #### [address] [address] #### TROP, PBNP #### [address] [address] .Auto Diffon 12-10-2019 Ammonia (P) [Mass/Vol] 0.40 10 3/mcL Normal 0.15-1.00 [facility] ([place]) Comment on above: Performed By: #### C BC, ADIFF, ANEU, LAC, CRP, MG, TSH, CMP, GFR, DIMER, ESR #### [address] [address] #### TROP, PBNP #### [address] [address] Basophils (Bld) [#/Vol] 0.00 10 3/mcL Normal 0.00-0.19 [facility] ([place]) Comment on above: Performed By: #### C BC, ADIFF, ANEU, LAC, CRP, MG, TSH, CMP, GFR, DIMER, ESR #### [address] [address] #### TROP, PBNP #### [address] [address] Basophils/100 WBC (Bld) 0.9 % Normal 0.0-2.5 [facility] ([place]) Comment on above: Performed By: #### C BC, ADIFF, ANEU, LAC, CRP, MG, TSH, CMP, GFR, DIMER, ESR #### [address] [address] #### TROP, PBNP #### [address] [address] Eosinophils (Bld) [#/Vol] 0.00 10 3/mcL Normal 0.00-0.40 [facility] ([place]) Comment on above: Performed By: #### C BC, ADIFF, ANEU, LAC, CRP, MG, TSH, CMP, GFR, DIMER, ESR #### [address] [address] #### TROP, PBNP #### [address] [address] Eosinophils/100 WBC (Bld) 0.9 % Normal 0.0-7.0 [facility] ([place]) Comment on above: Performed By: #### C BC, ADIFF, ANEU, LAC, CRP, MG, TSH, CMP, GFR, DIMER, ESR #### [address] [address] #### TROP, PBNP #### [address] [address] Lymphocytes (Bld) [#/Vol] 1.10 10 3/mcL Normal 0.77-3.85 [facility] ([place]) Comment on above: Performed By: #### C BC, ADIFF, ANEU, LAC, CRP, MG, TSH, CMP, GFR, DIMER, ESR #### [place] [address] #### TROP, PBNP #### [address] [address] Lymphocytes/100 WBC (Bld) 21.4 % Normal 10.0-50.0 [facility] ([place]) Comment on above: Performed By: #### C BC, ADIFF, ANEU, LAC, CRP, MG, TSH, CMP, GFR, DIMER, ESR #### [address] [address] #### TROP, PBNP #### [address] [address] Monocytes/100 WBC (Bld) 7.9 % Normal 1.7-13.0 [facility] ([place]) Comment on above: Performed By: #### C BC, ADIFF, ANEU, LAC, CRP, MG, TSH, CMP, GFR, DIMER, ESR #### [address] [address] #### TROP, PBNP #### [address] [address] Neutrophils/100 WBC (Bld) 68.9 % Normal 37.0-80.0 [facility] ([place]) Comment on above: Performed By: #### C BC, ADIFF, ANEU, LAC, CRP, MG, TSH, CMP, GFR, DIMER, ESR #### [address] [address] #### TROP, PBNP #### [address] [address] .GFRon 12-10-2019 GFR Non- 44 ml/min/1.73sqm Normal [facility] ([place]) Comment on above: Result Comment: GFR Population [...] MG, TSH, CMP, GFR, DIMER, ESR #### [address] [address] #### TROP, PBNP #### [address] [address] GFR 53 ml/min/1.73sqm Normal [facility] ([place]) Comment on above: Result Comment: GFR Population [...] MG, TSH, CMP, GFR, DIMER, ESR #### [address] [address] #### TROP, PBNP #### [address] [address] .NEUABSon 12-10-2019 Neutrophils (Bld) [#/Vol] 3.40 10 3/mcL Normal 2.85-6.16 [facility] ([place]) Comment on above: Performed By: #### C BC, ADIFF, ANEU, LAC, CRP, MG, TSH, CMP, GFR, DIMER, ESR #### [place] [address] #### TROP, PBNP #### [place] [address] CBCon 12-10-2019 Erythrocyte distribution width (RBC) [Ratio] 16.1 % High 11.5-14.5 [facility] ([place]) Comment on above: Performed By: #### C BC, ADIFF, ANEU, LAC, CRP, MG, TSH, CMP, GFR, DIMER, ESR #### [place] [address] #### TROP, PBNP #### [place] [address] Hematocrit (Bld) [Volume fraction] 39.0 % Normal 37.0-47.0 [facility] ([place]) Comment on above: Performed By: #### C BC, ADIFF, ANEU, LAC, CRP, MG, TSH, CMP, GFR, DIMER, ESR #### [place] [address] #### TROP, PBNP #### [place] [address] Hemoglobin (Bld) [Mass/Vol] 12.6 G/dL Normal 12.0-16.0 [facility] ([place]) Comment on above: Performed By: #### C BC, ADIFF, ANEU, LAC, CRP, MG, TSH, CMP, GFR, DIMER, ESR #### [address] [address] #### TROP, PBNP #### [address] [address] MCH (RBC) [Entitic mass] 30.8 pg Normal 27.0-31.2 [facility] ([place]) Comment on above: Performed By: #### C BC, ADIFF, ANEU, LAC, CRP, MG, TSH, CMP, GFR, DIMER, ESR #### [place] [address] #### TROP, PBNP #### [address] [address] MCHC (RBC) [Mass/Vol] 32.3 G/dL Low 33.0-37.0 [facility] [facility] ([place]) Comment on above: Performed By: #### C BC, ADIFF, ANEU, LAC, CRP, MG, TSH, CMP, GFR, DIMER, ESR #### [place] [address] #### TROP, PBNP #### [address] [address] MCV (RBC) [Entitic vol] 95.3 fL High 80.0-94.0 [facility] ([place]) Comment on above: Performed By: #### C BC, ADIFF, ANEU, LAC, CRP, MG, TSH, CMP, GFR, DIMER, ESR #### [address] [address] #### TROP, PBNP #### [address] [address] Platelet mean volume (Bld) [Entitic vol] 8.1 fL Normal 7.4-10.4 [facility] ([place]) Comment on above: Performed By: #### C BC, ADIFF, ANEU, LAC, CRP, MG, TSH, CMP, GFR, DIMER, ESR #### [place] [id number] #### TROP, PBNP #### [address] [address] Platelets (Bld) [#/Vol] 187 10 3/mcL Normal 130-400 [facility] ([place]) Comment on above: Performed By: #### C BC, ADIFF, ANEU, LAC, CRP, MG, TSH, CMP, GFR, DIMER, ESR #### [place] [address] #### TROP, PBNP #### [place] [address] RBC (Bld) [#/Vol] 4.09 10 6/mcL Low 4.20-5.40 [facility] ([place]) Comment on above: Performed By: #### C BC, ADIFF, ANEU, LAC, CRP, MG, TSH, CMP, GFR, DIMER, ESR #### [place] [address] #### TROP, PBNP #### [place] [address] WBC (Bld) [#/Vol] 5.00 10 3/mcL Normal 4.60-10.80 [facility] ([place]) Comment on above: Performed By: #### C BC, ADIFF, ANEU, LAC, CRP, MG, TSH, CMP, GFR, DIMER, ESR #### [place] [address] #### TROP, PBNP #### [place] [address] CMPon 12-10-2019 Albumin [Mass/Vol] 4.7 G/dL Normal 3.5-5.0 [facility] ([place]) Comment on above: Performed By: #### C BC, ADIFF, ANEU, LAC, CRP, MG, TSH, CMP, GFR, DIMER, ESR #### [address] [address] #### TROP, PBNP #### [place] [address] Albumin/Globulin [Mass ratio] 1.9 {ratio} Normal 1.1-2.5 [facility] ([place]) Comment on above: Performed By: #### C BC, ADIFF, ANEU, LAC, CRP, MG, TSH, CMP, GFR, DIMER, ESR #### [address] [address] #### TROP, PBNP #### [address] [address] ALP [Catalytic activity/Vol] 120 U/L Normal 40-135 [facility] ([place]) Comment on above: Performed By: #### C BC, ADIFF, ANEU, LAC, CRP, MG, TSH, CMP, GFR, DIMER, ESR #### [address] [address] #### TROP, PBNP #### [address] [address] ALT [Catalytic activity/Vol] 63 U/L High 10-35 [facility] ([place]) Comment on above: Performed By: #### C BC, ADIFF, ANEU, LAC, CRP, MG, TSH, CMP, GFR, DIMER, ESR #### [address] [address] #### TROP, PBNP #### [address] [address] AST [Catalytic activity/Vol] 37 U/L Normal 10-40 [facility] ([place]) Comment on above: Performed By: #### C BC, ADIFF, ANEU, LAC, CRP, MG, TSH, CMP, GFR, DIMER, ESR #### [address] [address] #### TROP, PBNP #### [address] [address] Bili Total 1.5 mg/dL High 0.2-1.0 [facility] ([place]) Comment on above: Result Comment: Use of this assay is not recommended for patients undergoing treatment with eltrombopag due to the potential for falsely elevated results. Performed By: #### C BC, ADIFF, ANEU, LAC, CRP, MG, TSH, CMP, GFR, DIMER, ESR #### [facility] [place] [address] [place] [address] #### TROP, PBNP #### [address] [address] Calcium [Mass/Vol] 9.2 mg/dL Normal 8.4-10.2 [facility] ([place]) Comment on above: Performed By: #### C BC, ADIFF, ANEU, LAC, CRP, MG, TSH, CMP, GFR, DIMER, ESR #### [address] [address] #### TROP, PBNP #### [address] [address] Chloride [Moles/Vol] 100 mmol/L Normal 98-107 [facility] ([place]) Comment on above: Performed By: #### C BC, ADIFF, ANEU, LAC, CRP, MG, TSH, CMP, GFR, DIMER, ESR #### [place] [address] #### TROP, PBNP #### [place] [address] CO2 [Moles/Vol] 31 mmol/L High 22-29 [facility] ([place]) Comment on above: Performed By: #### C BC, ADIFF, ANEU, LAC, CRP, MG, TSH, CMP, GFR, DIMER, ESR #### [address] [address] #### TROP, PBNP #### [address] [address] Creatinine [Mass/Vol] 1.25 mg/dL High 0.55-1.02 [facility] ([place]) Comment on above: Performed By: #### C BC, ADIFF, ANEU, LAC, CRP, MG, TSH, CMP, GFR, DIMER, ESR #### [address] [address] #### TROP, PBNP #### [address] [address] Electrolyte Balance 10.0 mEq/L Normal [facility] ([place]) Comment on above: Performed By: #### C BC, ADIFF, ANEU, LAC, CRP, MG, TSH, CMP, GFR, DIMER, ESR #### [address] [address] #### TROP, PBNP #### [address] [address] Globulin (S) [Mass/Vol] 2.5 G/dL Normal [facility] ([place]) Comment on above: Performed By: #### C BC, ADIFF, ANEU, LAC, CRP, MG, TSH, CMP, GFR, DIMER, ESR #### [address] [address] #### TROP, PBNP #### [address] [address] Glucose [Mass/Vol] 129 mg/dL High 70-105 [facility] ([place]) Comment on above: Performed By: #### C BC, ADIFF, ANEU, LAC, CRP, MG, TSH, CMP, GFR, DIMER, ESR #### [address] [address] #### TROP, PBNP #### [address] [address] Potassium [Moles/Vol] 4.0 mmol/L Normal 3.5-5.1 [facility] ([place]) Comment on above: Performed By: #### C BC, ADIFF, ANEU, LAC, CRP, MG, TSH, CMP, GFR, DIMER, ESR #### [address] [address] #### TROP, PBNP #### [address] [address] Protein [Mass/Vol] 7.2 G/dL Normal 6.4-8.2 [facility] ([place]) Comment on above: Performed By: #### C BC, ADIFF, ANEU, LAC, CRP, MG, TSH, CMP, GFR, DIMER, ESR #### [address] [address] #### TROP, PBNP #### [address] [address] Sodium [Moles/Vol] 141 mmol/L Normal 136-145 [facility] ([place]) Comment on above: Performed By: #### C BC, ADIFF, ANEU, LAC, CRP, MG, TSH, CMP, GFR, DIMER, ESR #### [address] [address] #### TROP, PBNP #### [place] [address] Urea nitrogen [Mass/Vol] 17 mg/dL Normal 7-18 [facility] ([place]) Comment on above: Performed By: #### C BC, ADIFF, ANEU, LAC, CRP, MG, TSH, CMP, GFR, DIMER, ESR #### [place] [address] #### TROP, PBNP #### [place] [address] Urea nitrogen/Creatinine [Mass ratio] 14 ratio Normal 7-27 [facility] ([place]) Comment on above: Performed By: #### C BC, ADIFF, ANEU, LAC, CRP, MG, TSH, CMP, GFR, DIMER, ESR #### [place] [address] #### TROP, PBNP #### [place] [address] CRPon 12-10-2019 CRP [Mass/Vol] mg/L Normal 0.0-0.9 [facility] ([place]) Comment on above: Performed By: #### C BC, ADIFF, ANEU, LAC, CRP, MG, TSH, CMP, GFR, DIMER, ESR #### [place] [address] #### TROP, PBNP #### [place] [address] DIMERon 12-10-2019 Fibrin D-dimer FEU IA (Bld) [Mass/Vol] ug/mL Normal 0-230 [facility] ([place]) Comment on above: Result Comment: The result [...] MG, TSH, CMP, GFR, DIMER, ESR #### [place] [address] #### TROP, PBNP #### [place] [address] LACon 12-10-2019 Lactic Acid Lvl 1.1 mmol/L Normal 0.4-2.0 [facility] ([place]) Comment on above: Performed By: #### C BC, ADIFF, ANEU, LAC, CRP, MG, TSH, CMP, GFR, DIMER, ESR #### [place] [address] #### TROP, PBNP #### [place] [address] MGon 12-10-2019 Magnesium [Mass/Vol] 1.9 mg/dL Normal 1.8-2.4 [facility] ([place]) Comment on above: Performed By: #### C BC, ADIFF, ANEU, LAC, CRP, MG, TSH, CMP, GFR, DIMER, ESR #### [place] [address] #### TROP, PBNP #### [place] [address] PBNPon 12-10-2019 Natriuretic peptide B (Bld) [Mass/Vol] 152 pg/mL High 0-125 [facility] ([place]) Comment on above: Result Comment: NT-p roBNP results of less than 300 pg/mL effectively rules out acute congestive heart failure with 99% negative predictive value. Performed By: #### C BC, ADIFF, ANEU, LAC, CRP, MG, TSH, CMP, GFR, DIMER, ESR #### [place] [address] #### TROP, PBNP #### [place] [address] TROPon 12-10-2019 Troponin I.cardiac [Mass/Vol] ng/mL Normal 0.000-0.040 [facility] ([place]) Comment on above: Result Comment: Trop onin I reference range: 0.00-0.040 ng/mL Negative and non-diagnostic. >0.040 ng/mL Consistent with cardiac damage, increased clinical risk and possibility of myocardial infarction. Serial measurements, a rise & fall in test results, clinical history, appropriate symptoms and/or ECG changes may help assess possibility of [place]. *Other non-acute coronary syndrome conditions such as CHF, myocarditis, pulmonary emboli, sepsis and cardiac surgery could result in myocardial damage and increased troponin levels. Performed By: #### C BC, ADIFF, ANEU, LAC, CRP, MG, TSH, CMP, GFR, DIMER, ESR #### [place] [address] #### TROP, PBNP #### [place] [address] TSHon 12-10-2019 TSH Qn 0.56 mcIU/mL Normal 0.36-3.74 [facility] ([place]) Comment on above: Performed By: #### C BC, ADIFF, ANEU, LAC, CRP, MG, TSH, CMP, GFR, DIMER, ESR #### [place] [id number] #### TROP, PBNP #### [place] [address] UAon 12-10-2019 Color (U) Yellow Normal [facility] ([place]) Comment on above: Performed By: #### U A #### [place] [phone] Glucose (U) [Mass/Vol] Negative Normal Negative [facility] ([place]) Comment on above: Performed By: #### U A #### [address] [address] Ketones Ql (U) Negative Normal Negative [facility] ([place]) Comment on above: Performed By: #### U A #### [address] [address] UA Appear Clear Normal Clear [facility] ([place]) Comment on above: Performed By: #### U A #### [address] [address] UA Blood Trace Abnormal Negative [facility] ([place]) Comment on above: Performed By: #### U A #### [place] [address] UA Leuk Est Negative Normal Negative [facility] ([place]) Comment on above: Performed By: #### U A #### [address] [address] UA Nitrite Negative Normal Negative [facility] ([place] Comment on above: Performed By: #### U A #### [address] [address] UA pH 5.0 Normal 5.0 - 8.0 [facility] ([place]) Comment on above: Performed By: #### U A #### [address] [address] UA Protein Negative Normal Negative [facility] ([place] Comment on above: Performed By: #### U A #### [place] [address] UA Spec Grav 1.015 Normal 1.015-1.025 [facility] ([place]) Comment on above: Performed By: #### U A #### [place] [address] UA Specimen Type Clean Catch Normal [facility] ([place] Comment on above: Performed By: #### U A #### [address] [address] UA Urobilinogen 0.2 E.U./dL Normal 0.2-1.0 [facility] ([place]) Comment on above: Performed By: #### U A #### [facility] [address] [place], [place] [address] Urobilinogen Qn (U) Negative Normal Negative [facility] ([place]) Comment on above: Performed By: #### U A #### [facility] [place] [address] [place], [place] [address] XR CHEST 1 VIEWon 12-10-2019 XR CHEST [...] Date: 12/10/2019 12:45:37 PM Ordering Provider:Jan Wang [facility] ([place]) COVID19 IgG, Qual by [facility] 0 10-28-2019 COVID-19 IgG, Qual Positive Negative [facility] Comment on above: Result Comment: A po sitive result suggests exposure to SARS-CoV-2 (COVID-19) but does not necessarily indicate immunity. Results from antibody testing should not be used as the sole basis to diagnose or exclude SARS-CoV-2 infection or to inform infection status. False positive results can occur due to past or present infection with [id number] coronavirus strains, such as coronavirus HKU1, NL63, OC43, or 229E. INTERPRETIVE INFORMATION: COVID-19 IgG, Qualitative by [facility] The COVID-19 IgG, Qualitative by [facility] test is for in vitro diagnostic use under an FDA Emergency Use Authorization (EUA). In compliance with this authorization, please visit [email or web address] for more information and to access the applicable information sheets. This test should not be used for screening of donated blood. Performed by [facility], [address] [place] [id number] [email or web address], Heriberto Nelson MD - Lab. Director Performed By: #### Sky MARION, CRP2 #### [facility] [address] [place] [address] #### IGA #### [facility] [address] [place] [address] #### TTGA2, EMABO #### The performing lab is in the report. CULT./ST. RESPIRATORYon 10-03 CULT./ST. RESPIRATORY CULT./ST. RESPIRAT ORY --> Status: F Rare normal respiratory orin. Normal [facility] Comment on above: Order Comment: Speci men Source Comment:Sputum Expectorated Performed By: #### E SR, CRP2 #### [facility] [place] [address] #### IGA #### [facility] [address] [place] [address] #### TTGA2, EMABO #### The performing lab is in the report. Basic Metabolic Panelon 10-03 Anion gap [Moles/Vol] 6 Normal [facility] Comment on above: Performed By: #### E SR, CRP2 #### [facility] [address] [place] [address] #### IGA #### [facility] [address] [place] [address] #### TTGA2, EMABO #### The performing lab is in the report. Calcium [Mass/Vol] 8.4 mg/dL Normal 8.4-10.4 [facility] Comment on above: Performed By: #### E SR, CRP2 #### [facility] [address] [place] [address] #### IGA #### [facility] [address] [place] [address] #### TTGA2, EMABO #### The performing lab is in the report. CO2 [Moles/Vol] 30 mmol/L Normal 22-30 [facility] Comment on above: Performed By: #### E SR, CRP2 #### [facility] [address] [place] [address] #### IGA #### [place] [address] [place] [address] #### TTGA2, EMABO #### The performing lab is in the report. Glucose [Mass/Vol] 125 mg/dL High 70-100 [facility] Comment on above: Performed By: #### E SR, CRP2 #### [facility] [place] [address] #### IGA #### [place] [address] [place] [address] #### TTGA2, EMABO #### The performing lab is in the report. Urea nitrogen [Mass/Vol] 17 mg/dL Normal 7-20 [facility] Comment on above: Performed By: #### E SR, CRP2 #### [facility] [place] [address] #### IGA #### [address] [place] [address] #### TTGA2, EMABO #### The performing lab is in the report. Creatinine [Mass/Vol] 0.87 mg/dL Normal 0.52-1.25 [facility] Comment on above: Performed By: #### E SR, CRP2 #### [facility] [place] [address] #### IGA #### [address] [place] [address] #### TTGA2, EMABO #### The performing lab is in the report. GFR/1.73 sq M predicted among blacks MDRD (S/P/Bld) [Vol rate/Area] 85.2 mL/min/{1.73_m2} Normal >60 [facility] Comment on above: Performed By: #### E SR, CRP2 #### [facility] [place] [address] #### IGA #### [address] [place] [address] #### TTGA2, EMABO #### The performing lab is in the report. GFR/1.73 sq M predicted among non-blacks MDRD (S/P/Bld) [Vol rate/Area] 73.5 mL/min/{1.73_m2} Normal >60 [facility] Comment on above: Result Comment: KDIG [...] Performed By: #### E SR, CRP2 #### [facility] [address] [place] [address] #### IGA #### [facility] [address] [place] [address] #### TTGA2, EMABO #### The performing lab is in the report. Chloride [Moles/Vol] 99 mmol/L Normal 98-107 [facility] Comment on above: Performed By: #### E SR, CRP2 #### [facility] [address] [place] [address] #### IGA #### [facility] [address] [place] [address] #### TTGA2, EMABO #### The performing lab is in the report. Potassium [Moles/Vol] 4.1 mmol/L Normal 3.5-5.1 [facility] [place] Comment on above: Performed By: #### E SR, CRP2 #### [facility] [address] [facility] [place] [address] #### IGA #### [facility] [address] [place] [address] #### TTGA2, EMABO #### The performing lab is in the report. Sodium [Moles/Vol] 135 mmol/L Normal 135-145 [place] Comment on above: Performed By: #### E SR, CRP2 #### [facility] [address] [place] [address] #### IGA #### [facility] [address] [place] [address] #### TTGA2, EMABO #### The performing lab is in the report. Anion gap [Moles/Vol] 6 mmol/L [place] Calcium [Mass/Vol] 8.4 mg/dL 8.4 - 10. 4 mg/dL [place] Chloride [Moles/Vol] 99 mmol/L 98 - 10 7 mmol/L [place] CO2 [Moles/Vol] 30 mmol/L 22 - 30 mmol/L [place] Creatinine [Mass/Vol] 0.87 mg/dL 0.52 - 1.25 mg/dL [place] EGFR IF NonAfrican Swiss 73.5 mL/min >60 [place] Comment on above: KDIGO guidelines pro [...] MDRD (S/P/Bld) [Vol rate/Area] 85.2 mL/min/{1.73_m2} >60 [place] Glucose [Mass/Vol] 125 mg/dL High 70 - 100 mg/dL [place] Interpretation and review of laboratory results Abnormal [place] Urea nitrogen [Mass/Vol] 17 mg/dL 7 - 20 mg/dL [place] CBC Auto Differentialon - Absolute Baso # 0.0 10*3/uL 0 - 0.2 10*3/uL [place] Absolute Neut # 1.6 10*3/uL Low 1.8 - 7 10*3/uL [place] Basophils/100 WBC (Bld) 1.4 % 0 - 2 % [place] Eosinophils (Bld) [#/Vol] 0.0 10*3/uL 0 - 0.5 10*3/uL [place] Eosinophils/100 WBC (Bld) 0.1 % Low 1 - 6 % [place] Erythrocyte distribution width (RBC) [Ratio] 18.0 % High 11.5 - 14.5 % [place] Granulocytes/100 WBC (Bld) 56.7 % 40 - 80 % [place] Hematocrit (Bld) [Volume fraction] 29.0 % Low 35 - 47 % [place] Hemoglobin (Bld) [Mass/Vol] 9.3 g/dL Low 11.7 - 16 g/dL [place] Interpretation and review of laboratory results Abnormal [place] Lymphocytes (Bld) [#/Vol] 0.9 10*3/uL Low 1 - 4.3 10*3/uL [place] Lymphocytes/100 WBC (Bld) 31.9 % 20 - 40 % [place] MCH (RBC) [Entitic mass] 30.9 pg 26 - 34 pg [place] MCHC (RBC) [Mass/Vol] 32.1 % 32 - 36 % [place] MCV (RBC) [Entitic vol] 96.5 fL 79 - 98 fL [place] Monocytes (Bld) [#/Vol] 0.3 10*3/uL 0 - 0.8 10*3/uL [place] Monocytes/100 WBC (Bld) 9.9 % 2 - 10 % [place] Platelet mean volume (Bld) [Entitic vol] 7.9 fL 7.4 - 10.4 fL [place] Platelets (Bld) [#/Vol] 173 10*3/uL 140 - 440 10*3/uL [place] RBC (Bld) [#/Vol] 3.01 10*6/uL Low 3.8 - 5.2 10*6/uL [place] WBC (Bld) [#/Vol] 2.9 10*3/uL Low 3.6 - 10.7 10*3/uL [place] Test Performed by [facility], [address] [place], [place] [id number] [place] [address] Hemogram w/ Autodiffon 10-25 Abs Baso Cnt 0.0 10*3/uL Normal 0.0-0.2 [facility] Comment on above: Performed By: #### E SR, CRP2 #### [facility] [address] [place] [address] #### IGA #### [facility] [address] [place] [address] #### TTGA2, EMABO #### The performing lab is in the report. Abs Neutrophile Cnt 1.6 10*3/uL Low 1.8-7.0 [facility] Comment on above: Performed By: #### E SR, CRP2 #### [facility] [address] [place] [address] #### IGA #### [facility] [address] [place] [address] #### TTGA2, EMABO #### The performing lab is in the report. Basophils/100 WBC (Bld) 1.4 % Normal 0.0-2.0 [facility] Comment on above: Performed By: #### E SR, CRP2 #### [facility] [address] [place] [address] #### IGA #### [facility] [address] [place] [address] #### TTGA2, EMABO #### The performing lab is in the report. Eosinophils (Bld) [#/Vol] 0.0 10*3/uL Normal 0.0-0.5 [facility] Comment on above: Performed By: #### E SR, CRP2 #### [address] [address] #### IGA #### [facility] [address] [place] [address] #### TTGA2, EMABO #### The performing lab is in the report. Eosinophils/100 WBC (Bld) 0.1 % Low 1.0-6.0 [facility] Comment on above: Performed By: #### E SR, CRP2 #### [address] [address] #### IGA #### [address] [place] [address] #### TTGA2, EMABO #### The performing lab is in the report. Erythrocyte distribution width (RBC) [Ratio] 18.0 % High 11.5-14.5 [facility] Comment on above: Performed By: #### E SR, CRP2 #### [address] [address] #### IGA #### [address] [place] [address] #### TTGA2, EMABO #### The performing lab is in the report. Granulocytes/100 WBC (Bld) 56.7 % Normal 40.0-80.0 [facility] Comment on above: Performed By: #### E SR, CRP2 #### [address] [address] #### IGA #### [address] [place] [address] #### TTGA2, EMABO #### The performing lab is in the report. Hematocrit (Bld) [Volume fraction] 29.0 % Low 35.0-47.0 [facility] Comment on above: Performed By: #### E SR, CRP2 #### [facility] [address] [place] [address] #### IGA #### [facility] [address] [place] [address] #### TTGA2, EMABO #### The performing lab is in the report. Hemoglobin (Bld) [Mass/Vol] 9.3 g/dL Low 11.7-16.0 [facility] Comment on above: Performed By: #### E SR, CRP2 #### [facility] [place] [address] #### IGA #### [facility] [address] [place] [address] #### TTGA2, EMABO #### The performing lab is in the report. Lymphocytes (Bld) [#/Vol] 0.9 10*3/uL Low 1.0-4.3 [facility] Comment on above: Performed By: #### E SR, CRP2 #### [facility] [place] [address] #### IGA #### [facility] [address] [place] [address] #### TTGA2, EMABO #### The performing lab is in the report. Lymphocytes/100 WBC (Bld) 31.9 % Normal 20.0-40.0 [facility] Comment on above: Performed By: #### E SR, CRP2 #### [facility] [place] [address] #### IGA #### [facility] [address] [place] [address] #### TTGA2, EMABO #### The performing lab is in the report. MCH (RBC) [Entitic mass] 30.9 pg Normal 26.0-34.0 [facility] Comment on above: Performed By: #### E SR, CRP2 #### [facility] [place] [address] #### IGA #### [place] [address] [place] [address] #### TTGA2, EMABO #### The performing lab is in the report. MCHC (RBC) [Mass/Vol] 32.1 % Normal 32.0-36.0 [facility] Comment on above: Performed By: #### E SR, CRP2 #### [facility] [address] [place] [address] #### IGA #### [place] [address] [place] [address] #### TTGA2, EMABO #### The performing lab is in the report. MCV (RBC) [Entitic vol] 96.5 fL Normal 79.0-98.0 [facility] Comment on above: Performed By: #### Sky SR, CRP2 #### [address] [address] #### IGA #### [address] [place] [address] #### TTGA2, EMABO #### The performing lab is in the report. Monocytes (Bld) [#/Vol] 0.3 10*3/uL Normal 0.0-0.8 [facility] Comment on above: Performed By: #### E SR, CRP2 #### [address] [address] #### IGA #### [address] [place] [address] #### TTGA2, EMABO #### The performing lab is in the report. Monocytes/100 WBC (Bld) 9.9 % Normal 2.0-10.0 [facility] Comment on above: Performed By: #### E SR, CRP2 #### [address] [address] #### IGA #### [address] [place] [address] #### TTGA2, EMABO #### The performing lab is in the report. Platelet mean volume (Bld) [Entitic vol] 7.9 fL Normal 7.4-10.4 [facility] Comment on above: Performed By: #### E SR, CRP2 #### [facility] [address] [place] [address] #### IGA #### [facility] [address] [place] [address] #### TTGA2, EMABO #### The performing lab is in the report. Platelets (Bld) [#/Vol] 173 10*3/uL Normal 140-440 [facility] Comment on above: Performed By: #### E SR, CRP2 #### [facility] [address] [place] [address] #### IGA #### [facility] [address] [place] [address] #### TTGA2, EMABO #### The performing lab is in the report. RBC (Bld) [#/Vol] 3.01 10*6/uL Low 3.80-5.20 [facility] Comment on above: Performed By: #### E SR, CRP2 #### [facility] [address] [place] [address] #### IGA #### [facility] [address] [place] [address] #### TTGA2, EMABO #### The performing lab is in the report. WBC (Bld) [#/Vol] 2.9 10*3/uL Low 3.6-10.7 [facility] Comment on above: Performed By: #### E SR, CRP2 #### [facility] [address] [place] [address] #### IGA #### [facility] [address] [place] [address] #### TTGA2, EMABO #### The performing lab is in the report. Magnesiumon 10-26-2019 Magnesium [Mass/Vol] 1.9 mg/dL Normal 1.6-2.3 [facility] Comment on above: Performed By: #### E SR, CRP2 #### [facility] [address] [place] [address] #### IGA #### [facility] [address] [place] [address] #### TTGA2, EMABO #### The performing lab is in the report. Magnesium [Mass/Vol] 1.9 mg/dL 1.6 - 2 .3 mg/dL [place] Otheron 10-26-2019 Test Performed by [facility], [address], [place] [address] [place] STAIN GRAMon 10-26-2019 STAIN GRAM STAIN GRAM --> Statu s: F Moderate polymorphonuclear cells/lpf. Moderate epithelial cells/lpf. Rare gram positive cocci. Rare gram positive bacilli. Moderate epithelial cells/lpf. Rare gram positive cocci. Rare gram positive bacilli. Normal [facility] Comment on above: Order Comment: Speci men Source Comment:Sputum Expectorated Performed By: #### E SR, CRP2 #### [facility] [address] [place] [address] #### IGA #### [facility] [address] [place] [address] #### TTGA2, EMABO #### The performing lab is in the report. CBC auto differentialon 10-03 Erythrocyte distribution width (RBC) [Ratio] 17.7 % High 11.5 - 14.5 % [place] Hematocrit (Bld) [Volume fraction] 31.8 % Low 35 - 47 % [place] Hemoglobin (Bld) [Mass/Vol] 10.4 g/dL Low 11.7 - 16 g/dL [place] Interpretation and review of laboratory results Abnormal [place] MCH (RBC) [Entitic mass] 31.0 pg 26 - 34 pg [place] MCHC (RBC) [Mass/Vol] 32.8 % 32 - 36 % [place], [place] MCV (RBC) [Entitic vol] 94.6 fL 79 - 98 fL [place], [place] Platelet mean volume (Bld) [Entitic vol] 7.6 fL 7.4 - 10.4 fL [place] Platelets (Bld) [#/Vol] 182 10*3/uL 140 - 440 10*3/uL [place] RBC (Bld) [#/Vol] 3.36 10*6/uL Low 3.8 - 5.2 10*6/uL [place] WBC (Bld) [#/Vol] 2.7 10*3/uL Low 3.6 - 10.7 10*3/uL [place] Test Performed by [facility], [address] [place] [address] [place] Comp Panel with Mg Reflexon 10-25-2019 Calcium [Mass/Vol] 8.2 mg/dL Low 8.4-10.4 [facility] Comment on above: Performed By: #### Sky MARION, CRP2 #### [facility] [address] [place] [address] #### IGA #### [facility] [address] [place] [address] #### TTGA2, EMABO #### The performing lab is in the report. ALP [Catalytic activity/Vol] 106 U/L Normal 38-126 [facility] Comment on above: Performed By: #### Sky MARION, CRP2 #### [facility] [address] [place] [address] #### IGA #### [facility] [address] [place] [address] #### TTGA2, EMABO #### The performing lab is in the report. ALT [Catalytic activity/Vol] 19 U/L Normal 0-34 [facility] Comment on above: Result Comment: The ALT test is performed by an updated assay method. Please note that the reference intervals have been changed and are now sex specific. Performed By: #### Sky MARION, CRP2 #### [facility] [address] [place] [address] #### IGA #### [facility] [address] [place] [address] #### TTGA2, EMABO #### The performing lab is in the report. Anion gap [Moles/Vol] 9 Normal [facility] Comment on above: Performed By: #### E SR, CRP2 #### [facility] [address] [place] [address] #### IGA #### [facility] [address] [place] [address] #### TTGA2, EMABO #### The performing lab is in the report. AST [Catalytic activity/Vol] 28 U/L Normal 15-46 [facility] Comment on above: Performed By: #### E SR, CRP2 #### [facility] [place] [address] #### IGA #### [place] [address] [place] [address] #### TTGA2, EMABO #### The performing lab is in the report. Bilirubin [Mass/Vol] 0.9 mg/dL Normal 0.2-1.3 [facility] Comment on above: Performed By: #### E SR, CRP2 #### [facility] [place] [address] #### IGA #### [place] [address] [place] [address] #### TTGA2, EMABO #### The performing lab is in the report. CO2 [Moles/Vol] 32 mmol/L High 22-30 [facility] Comment on above: Performed By: #### E SR, CRP2 #### [facility] [place] [address] #### IGA #### [place] [address] [place] [address] #### TTGA2, EMABO #### The performing lab is in the report. Glucose [Mass/Vol] 168 mg/dL High 70-100 [facility] Comment on above: Performed By: #### E SR, CRP2 #### [facility] [address] [place] [address] #### IGA #### [place] [address] [place] [address] #### TTGA2, EMABO #### The performing lab is in the report. Protein [Mass/Vol] 6.2 g/dL Low 6.3-8.2 [facility] Comment on above: Performed By: #### E SR, CRP2 #### [facility] [address] [place] [address] #### IGA #### [facility] [address] [place] [address] #### TTGA2, EMABO #### The performing lab is in the report. Urea nitrogen [Mass/Vol] 11 mg/dL Normal 7-20 [facility] Comment on above: Performed By: #### E SR, CRP2 #### [facility] [address] [place] [address] #### IGA #### [facility] [address] [place] [address] #### TTGA2, EMABO #### The performing lab is in the report. Creatinine [Mass/Vol] 0.85 mg/dL Normal 0.52-1.25 [facility] Comment on above: Performed By: #### E SR, CRP2 #### [facility] [address] [facility] [place] [address] #### IGA #### [facility] [address] [place] [address] #### TTGA2, EMABO #### The performing lab is in the report. GFR/1.73 sq M predicted among blacks MDRD (S/P/Bld) [Vol rate/Area] 87.6 mL/min/{1.73_m2} Normal >60 [facility] Comment on above: Performed By: #### E SR, CRP2 #### [facility] [address] [place] [address] #### IGA #### [facility] [address] [place] [address] #### TTGA2, EMABO #### The performing lab is in the report. GFR/1.73 sq M predicted among non-blacks MDRD (S/P/Bld) [Vol rate/Area] 75.6 mL/min/{1.73_m2} Normal >60 [facility] Comment on above: Result Comment: KDIG [...] Performed By: #### Sky MARION, CRP2 #### [facility] [address] [place] [address] #### IGA #### [facility] [address] [place] [address] #### TTGA2, EMABO #### The performing lab is in the report. Albumin [Mass/Vol] 3.6 g/dL Normal 3.5-5.0 [facility] Comment on above: Performed By: #### Sky MARION, CRP2 #### [facility] [address] [place] [address] #### IGA #### [facility] [address] [place] [address] #### TTGA2, EMABO #### The performing lab is in the report. Chloride [Moles/Vol] 95 mmol/L Low 98-107 [facility] Comment on above: Performed By: #### E SR, CRP2 #### [facility] [address] [place] [address] #### IGA #### [facility] [address] [place] [address] #### TTGA2, EMABO #### The performing lab is in the report. Potassium [Moles/Vol] 3.8 mmol/L Normal 3.5-5.1 [facility] Comment on above: Performed By: #### E SR, CRP2 #### [facility] [address] [place] [address] #### IGA #### [facility] [address] [place] [address] #### TTGA2, EMABO #### The performing lab is in the report. Sodium [Moles/Vol] 136 mmol/L Normal 135-145 [facility] Comment on above: Performed By: #### E SR, CRP2 #### [facility] [address] [place] [address] #### IGA #### [facility] [address] [place] [address] #### TTGA2, EMABO #### The performing lab is in the report. Comprehensive Metabolic Pane l w/ Reflex to MGon 10-25-2019 Albumin [Mass/Vol] 3.6 g/dL 3.5 - 5 g/dL [place] ALP [Catalytic activity/Vol] 106 U/L 38 - 126 U/L [place] ALT [Catalytic activity/Vol] 19 U/L 0 - 34 U/L [place] Comment on above: The ALT test is perf ormed by an updated assay method. Please note that the reference intervals have been changed and are now sex specific. Anion gap [Moles/Vol] 9 mmol/L [place], [place] AST [Catalytic activity/Vol] 28 U/L 15 - 46 U/L [place] Bilirubin Ql (U) 0.9 mg/dL 0.2 - 1.3 mg/dL [place] Calcium [Mass/Vol] 8.2 mg/dL Low 8.4 - 10. 4 mg/dL [place] Chloride [Moles/Vol] 95 mmol/L Low 98 - 10 7 mmol/L [place] CO2 [Moles/Vol] 32 mmol/L High 22 - 30 mmol/L [place] Creatinine [Mass/Vol] 0.85 mg/dL 0.52 - 1.25 mg/dL [place] EGFR IF NonAfrican Swiss 75.6 mL/min >60 [place] Comment on above: KDIGO guidelines pro [...] MDRD (S/P/Bld) [Vol rate/Area] 87.6 mL/min/{1.73_m2} >60 [place] Glucose [Mass/Vol] 168 mg/dL High 70 - 100 mg/dL [place] Interpretation and review of laboratory results Abnormal [place] Potassium [Moles/Vol] 3.8 mmol/L 3.5 - 5.1 mmol/L [place] Protein [Mass/Vol] 6.2 g/dL Low 6.3 - 8.2 g/dL [place] Sodium [Moles/Vol] 136 mmol/L 135 - 145 mmol/L [place] Urea nitrogen [Mass/Vol] 11 mg/dL 7 - 20 mg/dL [place] Test Performed by [facility], [address] [place], [place] [address] [place] ECHO Complete 2D W Doppler W Coloron 10-25-2019 TRANSTHORACIC ECHOCARDIOGRAM PATIENT: Alfie Hogan STUDY DATE: 10/25/2019 : 1960 AGE: 58 HT/WT: 172.7 cm (68 116.1 kg in) (255.5 lb) GENDER: F BP: 111 / 72 LOCATION: [facility] PATIENT Inpatient [facility] STATUS: *ORDERING PHYSICIAN: * Randal Molina *READING PHYSICIAN: * Mau *YARN INSPECTOR: * Kiersten Oropeza DO, JOSE JUAN, [facility] Juan Carlos RDCS, AE INDICATIONS: Edema, Oulmonary [...] DO, FSVM, FACC 10/25/2019 13:36 Prior Signatures: [place], [place] Obed, [facility] Incoming Cardiology Results From Elzbieta/Skyler - 10/25/2019 1:36 PM EDT TRANSTHORACIC ECHOCARDIOGRAM PATIENT: Alfie Hogan STUDY DATE: 10/25/2019 : 1960 AGE: 58 HT/WT: 172.7 cm (68 116.1 kg in) (255.5 lb) GENDER: F BP: 111 / 72 LOCATION: [facility] PATIENT Inpatient [facility] STATUS: *ORDERING PHYSICIAN: * Randal Molina *READING PHYSICIAN: * Mau *YARN INSPECTOR: * Kiersten Pietrolungo, DO, FSVM, FACC [place] RDCS, AE [...] DO, FS, FAC 10/25/2019 13:36 Prior Signatures: clipkitLAURA EKG 12 leadon 10-25-2019 TipTap Test Date: 2019-10-24 Pat Name: Alfie Hogan Department: 01 Room: 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 : 1960 Requested By: MAYCOL ARROYO Order Number: [id number] Demond MD: Bao Gupta Measurements Intervals [place] Rate: 115 P: 54 DE: 148 QRS: 88 QRSD: 132 T: -17 QT: 344 QTc: 476 Interpretive Statements SINUS TACHYCARDIA RBBB AND LPFB No previous ECG available for comparison Electronically Signed On 10-25-2019 10:39:01 EDT by Bao Gupta [facility] Obed, [facility] Incoming Cardiology Results From Elzbieta/Carlosany - 10/25/2019 10:40 AM EDT TipTap Test Date: 2019-10-24 Pat Name: Alfie Hogan Department: 01 Room: 457 Gender: F 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: MARRY : 1960 Requested By: MAYCOL ARROYO Order Number: [id number] Demond MD: Bao Gupta Measurements Intervals [place] Rate: 115 P: 54 DE: 148 QRS: 88 QRSD: 132 T: -17 QT: 344 QTc: 476 Interpretive Statements SINUS TACHYCARDIA RBBB AND LPFB No previous ECG available for comparison Electronically Signed On 10-25-2019 10:39:01 EDT by Bao Gupta [facility] [place], [place] Echo Complete w/wo Contrasto n 10-25-2019 Echo Complete w/wo Contrast Patient Name: ALFIE HOGAN Ultrasound Exam Date/Time 10/25/2019 09:51:29 EDT Exam Echo Complete w/wo Contrast Ordering Physician MD KECIA, RANDAL Accession Number [id number] Reason For Exam LE edema , pulmonary HTN Report TRANSTHORACIC ECHOCARDIOGRAM PATIENT: Alfie Hogan STUDY DATE: 10/25/2019 : 1960 AGE: 58 HT/WT: 172.7 cm (68 116.1 kg in) (255.5 lb) GENDER: F BP: 111 / 72 LOCATION: [facility] PATIENT Inpatient [facility] STATUS: *ORDERING PHYSICIAN: * Randal Molina *READING PHYSICIAN: Alycia León *YARN INSPECTOR: * Kiersten Oropeza DO, FS, [facility] Juan Carlos [facility], [place] INDICATIONS: Edema, Oulmonary Hypertension. [...] Electronically signed by Mau Oropeza DO, EMILIA, [facility] 10/25/2019 13:36 Prior Signatures: Final Dictated: 10/25/2019 1:36 pm Dictating Physician: DO OROPEZA JOSEPH Signed Date and Time: 10/25/2019 1:36 pm Signed by: DO OROPEZA JOSEPH Normal [facility] Gram Stainon 10-25-2019 INR Coag (Bld) [Relative time] Moderate polymorphonuclear cells/lpf. Moderate epithelial cells/lpf. Rare gram positive cocci. Rare gram positive bacilli. [place] Test Performed by [address] [address] Specimen Source Comment:Sputum Expectorated [place], [place] Hemogram w/ Autodiffon 10-24 Erythrocyte distribution width (RBC) [Ratio] 17.7 % High 11.5-14.5 [facility] Comment on above: Performed By: #### E SR, CRP2 #### [facility] [address] [place] [address] #### IGA #### [facility] [address] [place] [address] #### TTGA2, EMABO #### The performing lab is in the report. Hematocrit (Bld) [Volume fraction] 31.8 % Low 35.0-47.0 [facility] Comment on above: Performed By: #### E SR, CRP2 #### [facility] [address] [place] [address] #### IGA #### [facility] [address] [place] [address] #### TTGA2, EMABO #### The performing lab is in the report. Hemoglobin (Bld) [Mass/Vol] 10.4 g/dL Low 11.7-16.0 [facility] Comment on above: Performed By: #### E SR, CRP2 #### [facility] [address] [place] [address] #### IGA #### [facility] [address] [place] [address] #### TTGA2, EMABO #### The performing lab is in the report. MCH (RBC) [Entitic mass] 31.0 pg Normal 26.0-34.0 [facility] Comment on above: Performed By: #### E SR, CRP2 #### [facility] [address] [place] [address] #### IGA #### [facility] [address] [place] [address] #### TTGA2, EMABO #### The performing lab is in the report. MCHC (RBC) [Mass/Vol] 32.8 % Normal 32.0-36.0 [facility] Comment on above: Performed By: #### E SR, CRP2 #### [facility] [address] [place] [address] #### IGA #### [facility] [address] [place] [address] #### TTGA2, EMABO #### The performing lab is in the report. MCV (RBC) [Entitic vol] 94.6 fL Normal 79.0-98.0 [facility] Comment on above: Performed By: #### E SR, CRP2 #### [facility] [place] [address] #### IGA #### [facility] [address] [place] [address] #### TTGA2, EMABO #### The performing lab is in the report. Platelet mean volume (Bld) [Entitic vol] 7.6 fL Normal 7.4-10.4 [facility] Comment on above: Performed By: #### E SR, CRP2 #### [facility] [address] [place] [address] #### IGA #### [facility] [address] [place] [address] #### TTGA2, EMABO #### The performing lab is in the report. Platelets (Bld) [#/Vol] 182 10*3/uL Normal 140-440 [facility] Comment on above: Performed By: #### E SR, CRP2 #### [facility] [address] [place] [address] #### IGA #### [facility] [address] [place] [address] #### TTGA2, EMABO #### The performing lab is in the report. RBC (Bld) [#/Vol] 3.36 10*6/uL Low 3.80-5.20 [facility] Comment on above: Performed By: #### E SR, CRP2 #### [facility] [address] [facility] [place] [address] #### IGA #### [place] [address] [place] [address] #### TTGA2, EMABO #### The performing lab is in the report. WBC (Bld) [#/Vol] 2.7 10*3/uL Low 3.6-10.7 [facility] Comment on above: Performed By: #### E SR, CRP2 #### [facility] [address] [place] [address] #### IGA #### [facility] [address] [place] [address] #### TTGA2, EMABO #### The performing lab is in the report. LEGIONELLA AG, URINEon 10-24 LEGIONELLA AG, URINE LEGIONELLA AG, URIN E --> Status: F Legionella antigen NOT DETECTED. Normal [facility] Comment on above: Order Comment: Speci men Source Comment:Urine, clean catch Performed By: #### E SR, CRP2 #### [facility] [address] [place] [address] #### IGA #### [facility] [address] [place] [address] #### TTGA2, EMABO #### The performing lab is in the report. Legionella antigen, urineon 10-25-2019 LEGIONELLA ANTIGEN Legionella antigen N OT DETECTED. [facility] [place] Manual Diffon 10-25-2019 Abs Lymph Cnt 0.6 10*3/uL Low 1.1-4.5 [facility] Comment on above: Performed By: #### E SR, CRP2 #### [facility] [address] [place] [address] #### IGA #### [facility] [address] [place] [address] #### TTGA2, EMABO #### The performing lab is in the report. Abs Monocyte Cnt 0.0 10*3/uL Low 0.2-1.1 [facility] Comment on above: Performed By: #### E SR, CRP2 #### [address] [place] [address] #### IGA #### [place] [address] [place] [address] #### TTGA2, EMABO #### The performing lab is in the report. Abs Neutrophile Cnt 2.1 10*3/uL Low 2.2-8.2 [facility] Comment on above: Performed By: #### E SR, CRP2 #### [facility] [place] [address] #### IGA #### [facility] [address] [place] [address] #### TTGA2, EMABO #### The performing lab is in the report. Anisocytosis Ql (Bld) Slight Normal [facility] Comment on above: Performed By: #### E SR, CRP2 #### [facility] [address] [place] [address] #### IGA #### [facility] [address] [place] [address] #### TTGA2, EMABO #### The performing lab is in the report. Lymphocytes 22 % Normal 20-40 [facility] Comment on above: Performed By: #### E SR, CRP2 #### [facility] [address] [place] [address] #### IGA #### [facility] [address] [place] [address] #### TTGA2, EMABO #### The performing lab is in the report. Monocytes 1 % Low 2-10 [facility] Comment on above: Performed By: #### E SR, CRP2 #### [facility] [address] [place] [address] #### IGA #### [facility] [address] [place] [address] #### TTGA2, EMABO #### The performing lab is in the report. Ovalocytes Slight Normal [facility] Comment on above: Performed By: #### E SR, CRP2 #### [facility] [address] [place] [address] #### IGA #### [facility] [address] [place] [address] #### TTGA2, EMABO #### The performing lab is in the report. Poikilocytosis Slight Normal [facility] Comment on above: Performed By: #### E SR, CRP2 #### [facility] [place] [address] #### IGA #### [facility] [address] [place] [address] #### TTGA2, EMABO #### The performing lab is in the report. Polychromasia Slight Normal [facility] Comment on above: Performed By: #### E SR, CRP2 #### [facility] [address] [place] [address] #### IGA #### [facility] [address] [place] [address] #### TTGA2, EMABO #### The performing lab is in the report. RBC morphology finding Nom (Bld) ABNORMAL Normal [facility] Comment on above: Performed By: #### E SR, CRP2 #### [facility] [address] [place] [address] #### IGA #### [facility] [address] [place] [address] #### TTGA2, EMABO #### The performing lab is in the report. Seg Neutrophils 77 % Normal 40-80 [facility] Comment on above: Performed By: #### E SR, CRP2 #### [facility] [address] [place] [address] #### IGA #### [facility] [address] [place] [address] #### TTGA2, EMABO #### The performing lab is in the report. Stomatocytes Slight Normal [facility] Comment on above: Performed By: #### E SR, CRP2 #### [facility] [place] [address] #### IGA #### [facility] [address] [place] [address] #### TTGA2, EMABO #### The performing lab is in the report. Tear Drop Forms Slight Normal [facility] Comment on above: Performed By: #### E SR, CRP2 #### [facility] [place] [address] #### IGA #### [facility] [address] [place] [address] #### TTGA2, EMABO #### The performing lab is in the report. Abs Baso Cnt 0.0 10*3/uL Normal 0.0-0.2 [facility] Comment on above: Performed By: #### E SR, CRP2 #### [facility] [place] [address] #### IGA #### [facility] [address] [place] [address] #### TTGA2, EMABO #### The performing lab is in the report. Abs Eosin Cnt 0.0 10*3/uL Normal 0.0-0.5 [facility] Comment on above: Performed By: #### E SR, CRP2 #### [facility] [place] [address] #### IGA #### [facility] [address] [place] [address] #### TTGA2, EMABO #### The performing lab is in the report. Bands 0 % Normal 0-3 [facility] Comment on above: Performed By: #### E SR, CRP2 #### [facility] [address] [place] [address] #### IGA #### [facility] [address] [place] [address] #### TTGA2, EMABO #### The performing lab is in the report. Basophils 0 % Normal 0-2 [facility] Comment on above: Performed By: #### E SR, CRP2 #### [facility] [address] [place] [address] #### IGA #### [facility] [address] [place] [address] #### TTGA2, EMABO #### The performing lab is in the report. Cells counted 100 Normal [facility] Comment on above: Performed By: #### E SR, CRP2 #### [facility] [address] [place] [address] #### IGA #### [facility] [address] [place] [address] #### TTGA2, EMABO #### The performing lab is in the report. Eosinophils 0 % Low 1-6 [facility] Comment on above: Performed By: #### E SR, CRP2 #### [facility] [address] [place] [address] #### IGA #### [facility] [address] [place] [address] #### TTGA2, EMABO #### The performing lab is in the report. Manual Differentialon 2019 Absolute Baso # 0.0 10*3/uL 0 - 0.2 10*3/uL [place] Absolute Eos # 0.0 10*3/uL 0 - 0.5 10*3/uL [place] Absolute Lymph # 0.6 10*3/uL Low 1.1 - 4.5 10*3/uL [facility] [place] Absolute [place] # 0.0 10*3/uL Low 0.2 - 1.1 10*3/uL [facility] Absolute Neut # 2.1 10*3/uL Low 2.2 - 8.2 10*3/uL [facility] Anisocytosis Ql (Bld) Slight [facility] [place] Bands 0 % 0 - 3 % [facility] Basophils 0 % 0 - 2 % [facility] Eosinophils 0 % Low 1 - 6 % [facility] Interpretation and review of laboratory results Abnormal [facility] [place] Lymphocytes 22 % 20 - 40 % [facility] Monocytes 1 % Low 2 - 10 % [facility] Ovalocytes Slight [facility] Poikilocytes Slight [facility] Polychromasia Slight [facility] RBC morphology finding Nom (Bld) ABNORMAL [facility] Seg Neutrophils 77 % 40 - 80 % [facility] Stomatocytes Slight [facility] [place] Tear Drop Cells Slight [facility] TOTAL CELLS COUNTED 100 [facility], [place] Test Performed by [facility], [address], [place], [place] [address] [facility] Otheron 10-25-2019 Test Performed by [facility], [address] [place] [address] Specimen Source Comment:Urine, clean catch [facility] Procalcitoninon 10-25-2019 Procalcitonin 0.58 ng/mL Abnormal <0.10 [facility] Comment on above: Performed By: #### E SR, CRP2 #### [facility] [address] [place] [address] #### IGA #### [facility] [address] [place] [address] #### TTGA2, EMABO #### The performing lab is in the report. Interpretation and review of laboratory results Abnormal [facility] Procalcitonin 0.58 ng/mL Abnormal <0.10 [facility] Sodium [Moles/Vol] See Below [place] Comment on above: PCT <0.50 = Low risk of severe sepsis and/or septic shock. PCT >2.00 = High risk of severe sepsis and/or septic shock. Test Performed by [facility], [address] [place] [address], [place] [address] [place], [place] RESPIRATORY PCR PANELon 10-03 RESPIRATORY PCR PANEL RESPIRATORY PCR PA STANISLAV --> Status: F NEGATIVE: No targets were detected by the Pre[employer]entlye Upper Respiratory Pathogens PCR Panel. PLEASE NOTE: This assay DOES NOT detect SARS-CoV-2/COVID-19. _ The [employer] Oncolyticse Upper Respiratory Pathogens PCR Panel can detect [...] assay DOES NOT detect SARS-CoV-2/COVID-19. _ The Pre[employer]entlye Upper Respiratory Pathogens PCR Panel can detect the following targets: Adenovirus, Coronavirus 229E, Coronavirus HKU1, Coronavirus NL63, Coronavirus OC43, Human Metapneumovirus, Human Rhinovirus/Enterovirus, Influenza A, Influenza B, Parainfluenza Virus 1, Parainfluenza Virus 2, Parainfluenza Virus 3, Parainfluenza Virus 4, Respiratory Syncytial Virus, Bordetella pertussis, Bordetella parapertussis, Chlamydia pneumoniae, Mycoplasma pneumoniae Normal [facility] Comment on above: Order Comment: Speci men Source Comment:Nasopharyngeal Performed By: #### E SR, CRP2 #### [facility] [address] [place] [address] #### IGA #### [facility] [address] [place] [address] #### TTGA2, EMABO #### The performing lab [...] pertussis, Bordetella parapertussis, Chlamydia pneumoniae, Mycoplasma pneumoniae [place] Test Performed by [address] [address] Specimen Source Comment:Nasopharyngeal [place] STREP PNEUMO ANTIGEN, URINEo n 10-25-2019 STREP PNEUMO ANTIGEN, URINE STREP PNEUMO ANTIGEN, URINE --> Status: F Strep pneumo antigen NOT DETECTED. Normal [facility] Comment on above: Order Comment: Speci men Source Comment:Urine, clean catch Performed By: #### E SR, CRP2 #### [facility] [address] [place] [address] #### IGA #### [facility] [address] [place] [address] #### TTGA2, EMABO #### The performing lab is in the report. Strep Pneumoniae Antigenon 0 10-25-2019 STREP PNEUMONIAE ANTIGEN, URINE Strep pneumo antigen NOT DETECTED. [place] Troponin Ion 10-25-2019 Troponin I.cardiac [Mass/Vol] ng/mL Normal 0.000-0.034 [facility] Comment on above: Result Comment: . Performed By: #### E SR, CRP2 #### [facility] [address] [facility] [place] [address] #### IGA #### [facility] [address] [place] [address] #### TTGA2, EMABO #### The performing lab is in the report. VL LOWER EXTREMITY BILATERAL VENOUS DUPLEXon 10-25-2019 [facility], [facility] Incoming Cardiology Results From Merge[facility] - 10/25/2019 11:54 AM EDT [facility] Lower Extremity Venous Duplex Report Ordering Physician: Randal Molina Higher Level Teaching Assistant: Bea Paiz Interpreting Physician: Antonio Parker MD Location: [facility] Indications: Bilateral lower leg edema, elevated D [...] supine position. Images were obtained using a Medikly E9 vascular ultrasound machine. Venous flow and [...] signed by Antonio Parker MD 10/25/2019 11:53 [facility]- [place], [facility] Lower Extremity Venous Duplex Report Ordering Physician: Randal Molina Higher Level Teaching Assistant: Bea Paiz Interpreting Physician: Antonio Parker MD Location: [facility] Indications: Bilateral lower leg edema, elevated D [...] supine position. Images were obtained using a Medikly E9 vascular ultrasound machine. Venous flow and [...] signed by Antonio Parker MD 10/25/2019 11:53 [place], [place] VL Venous Duplex US Lower Ex t Bilateralon 10-25-2019 VL Venous Duplex US Lower Ext Bilateral Patient Name: ALFIE HOGAN Ultrasound Exam Date/Time 10/25/2019 12:01:29 EDT Exam VL Venous Duplex US Lower Ext Bilateral Ordering Physician MD KECIA, [facility] Accession Number [id number] CPT4 Codes 53099 () Reason For Exam LE edema, elevated d dimer Report [facility] Lower Extremity Venous Duplex Report Patient Samira, : 1960 Study 10/25/2019 Name: Alfie Calvillo (58yrs) Date: Patient [id number] Age: 58 Account: [id number] ID: Gender: F Loc: [id number] BP: Ordering Physician: Randal Molina Higher Level Teaching Assistant: Bea Paiz Interpreting Physician: Antonio Parker MD Location: [facility] Indications: Bilateral lower leg edema, elevated D [...] supine position. Images were obtained using a Medikly E9 vascular ultrasound machine. Venous flow and [...] signed by Antonio Parker MD 10/25/2019 11:53 [facility], [address] [place] [address] , [address] [address] , Final Dictated: 10/31/2019 9:53 am Dictating Physician: ANTONIO PARKER Signed Date and Time: 10/25/2019 11:53 am Signed by: ANTONIO PARKER [facility] Brain Natriuretic Peptideon 10-24-2019 Natriuretic peptide B (Bld) [Mass/Vol] 109 pg/mL 0 - 125 pg/mL [place], [place] CBC Auto Differentialon 05-2 Absolute Baso # 0.0 10*3/uL 0 - 0.2 10*3/uL [place] Absolute Neut # 1.9 10*3/uL 1.8 - 7 10*3/uL [place] Basophils/100 WBC (Bld) 0.7 % 0 - 2 % [place] Eosinophils (Bld) [#/Vol] 0.1 10*3/uL 0 - 0.5 10*3/uL [place] Eosinophils/100 WBC (Bld) 1.2 % 1 - 6 % [place] Erythrocyte distribution width (RBC) [Ratio] 17.8 % High 11.5 - 14.5 % [place] Granulocytes/100 WBC (Bld) 39.1 % Low 40 - 80 % [place] Hematocrit (Bld) [Volume fraction] 31.3 % Low 35 - 47 % [place] Hemoglobin (Bld) [Mass/Vol] 10.1 g/dL Low 11.7 - 16 g/dL [place] Interpretation and review of laboratory results Abnormal [place] Lymphocytes (Bld) [#/Vol] 2.6 10*3/uL 1 - 4.3 10*3/uL [place] Lymphocytes/100 WBC (Bld) 53.3 % High 20 - 40 % [place] MCH (RBC) [Entitic mass] 30.9 pg 26 - 34 pg [place] MCHC (RBC) [Mass/Vol] 32.4 % 32 - 36 % [place] MCV (RBC) [Entitic vol] 95.4 fL 79 - 98 fL [place], [place] Monocytes (Bld) [#/Vol] 0.3 10*3/uL 0 - 0.8 10*3/uL [place], [place] Monocytes/100 WBC (Bld) 5.7 % 2 - 10 % [place] Platelet mean volume (Bld) [Entitic vol] 8.0 fL 7.4 - 10.4 fL [place] Platelets (Bld) [#/Vol] 193 10*3/uL 140 - 440 10*3/uL [place] RBC (Bld) [#/Vol] 3.28 10*6/uL Low 3.8 - 5.2 10*6/uL [facility] [place] WBC (Bld) [#/Vol] 4.9 10*3/uL 3.6 - 10.7 10*3/uL [facility] [place] Test Performed by [facility], [address] [place], [place] [address] [facility] [place] COVID-19on 10-24-2019 SARS-CoV-2 Not Detected Expected Result: Not Detected _ Real-time, RT-PCR performed on the [employer] TORCH by the [facility] Microbiology Service. Negative results do not preclude SARS-CoV-2 infection and should not be used as the sole basis for treatment or other patient management decisions. This assay was developed by [employer] and distributed under an Emergency Use Authorization (EUA) granted by the FDA for the qualitative detection of SARS-CoV-2 nucleic acid. [place], [place] Test Performed by [facility], [address] [place] [address] Specimen Source Comment:Nasopharyngeal Swab [facility] [place] CR Chest Portableon 10-24-19 20 CR Chest Portable Patient Name: ALFIE HUGHES MS Diagnostic Radiology Exam Date/Time 10/24/2019 18:13:21 EDT Exam CR Chest Portable Ordering Physician MD CRUZ, MAYCOL Pelletier Accession Number [id number] CPT4 Codes 80938 () Reason For Exam cough, dyspnea, COVID+ [...] Transcribed Date and Time: 10/24/2019 6:21 Normal [facility] CTA Chest W WO (PE study)on 10-24-2019 Patient Name: ALFIE HUGHES MS ---CT--- Exam Date/Time 10/24/2019 20:46:26 EDT Exam CTA Chest w/ + w/o Contrast Ordering Physician MD CRUZ, MAYCOL Pelletier Accession Number [id number] CPT4 Codes 21426 (), Q9967 (CT ISOVUE 370MG/[id number]& [id number]) Reason For Exam ShOB, elevated D [...] RISA Transcribed Date and Time: 10/24/2019 9:06 [facility] [facility], [facility] Incoming Radiology Results From [employer] - 10/24/2019 9:06 PM EDT Patient Name: ALFIE HOGAN ---CT--- Exam Date/Time 10/24/2019 20:46:26 EDT Exam CTA Chest w/ + w/o Contrast Ordering Physician MD ARROYO JASON T Accession Number [id number] CPT4 Codes 91109 (), Q9967 (CT ISOVUE 370MG/[id number]& 1) Reason For Exam ShOB, elevated D [...] RISA Transcribed Date and Time: 10/24/2019 9:06 [place] CTA Chest w/ + w/o Contrasto n 10-24-2019 CTA Chest w/ + w/o Contrast Patient Name: ALFIE HOGAN CT Exam Date/Time 10/24/2019 20:46:26 EDT Exam CTA Chest w/ + w/o Contrast Ordering Physician MD ARROYO JASON T Accession Number [id number] CPT4 Codes 88836 (), Q9967 (CT ISOVUE 370MG/[id number] dMLand1) Reason For Exam ShOB, elevated D [...] Transcribed Date and Time: 10/24/2019 9:06 Normal [facility] Comp Panel with Mg Reflexon 10-24-2019 ALP [Catalytic activity/Vol] 93 U/L Normal 38-126 [facility] Comment on above: Performed By: #### E SR, CRP2 #### [facility] [address] [place] [address] #### IGA #### [facility] [address] [place] [address] #### TTGA2, EMABO #### The performing lab is in the report. ALT [Catalytic activity/Vol] 19 U/L Normal 0-34 [facility] Comment on above: Result Comment: The ALT test is performed by an updated assay method. Please note that the reference intervals have been changed and are now sex specific. Performed By: #### E SR, CRP2 #### [facility] [address] [facility] [place] [address] #### IGA #### [facility] [address] [place] [address] #### TTGA2, EMABO #### The performing lab is in the report. AST [Catalytic activity/Vol] 32 U/L Normal 15-46 [facility] Comment on above: Performed By: #### E SR, CRP2 #### [facility] [address] [place] [address] #### IGA #### [facility] [address] [place] [address] #### TTGA2, EMABO #### The performing lab is in the report. Calcium [Mass/Vol] 7.9 mg/dL Low 8.4-10.4 [facility] Comment on above: Performed By: #### E SR, CRP2 #### [facility] [place] [address] #### IGA #### [place] [address] [place] [address] #### TTGA2, EMABO #### The performing lab is in the report. Glucose [Mass/Vol] 110 mg/dL High 70-100 [facility] Comment on above: Performed By: #### E SR, CRP2 #### [facility] [place] [address] #### IGA #### [place] [address] [place] [address] #### TTGA2, EMABO #### The performing lab is in the report. Urea nitrogen [Mass/Vol] 14 mg/dL Normal 7-20 [facility] Comment on above: Performed By: #### E SR, CRP2 #### [address] [place] [address] #### IGA #### [address] [place] [address] #### TTGA2, EMABO #### The performing lab is in the report. Anion gap [Moles/Vol] 11 Normal [facility] Comment on above: Performed By: #### E SR, CRP2 #### [facility] [address] [place] [address] #### IGA #### [place] [address] [place] [address] #### TTGA2, EMABO #### The performing lab is in the report. Bilirubin [Mass/Vol] 0.8 mg/dL Normal 0.2-1.3 [facility] Comment on above: Performed By: #### E SR, CRP2 #### [facility] [address] [place] [address] #### IGA #### [facility] [address] [place] [address] #### TTGA2, EMABO #### The performing lab is in the report. CO2 [Moles/Vol] 30 mmol/L Normal 22-30 [facility] Comment on above: Performed By: #### E SR, CRP2 #### [facility] [address] [place] [address] #### IGA #### [facility] [address] [place] [address] #### TTGA2, EMABO #### The performing lab is in the report. Creatinine [Mass/Vol] 1.17 mg/dL Normal 0.52-1.25 [facility] Comment on above: Performed By: #### E SR, CRP2 #### [facility] [place] [address] #### IGA #### [facility] [address] [place] [address] #### TTGA2, EMABO #### The performing lab is in the report. GFR/1.73 sq M predicted among blacks MDRD (S/P/Bld) [Vol rate/Area] 59.5 mL/min/{1.73_m2} Abnormal >60 [facility] Comment on above: Performed By: #### E SR, CRP2 #### [facility] [address] [place] [address] #### IGA #### [facility] [address] [place] [address] #### TTGA2, EMABO #### The performing lab is in the report. GFR/1.73 sq M predicted among non-blacks MDRD (S/P/Bld) [Vol rate/Area] 51.4 mL/min/{1.73_m2} Abnormal >60 [facility] Comment on above: Result Comment: KDIG [...] Performed By: #### Sky MARION, CRP2 #### [facility] [address] [place] [address] #### IGA #### [address] [place] [address] #### TTGA2, EMABO #### The performing lab is in the report. Protein [Mass/Vol] 6.0 g/dL Low 6.3-8.2 [facility] Comment on above: Performed By: #### E , CRP2 #### [address] [address] #### IGA #### [address] [place] [address] #### TTGA2, EMABO #### The performing lab is in the report. Potassium [Moles/Vol] 3.6 mmol/L Normal 3.5-5.1 [facility] Comment on above: Performed By: #### E SR, CRP2 #### [address] [address] #### IGA #### [address] [place] [address] #### TTGA2, EMABO #### The performing lab is in the report. Albumin [Mass/Vol] 3.5 g/dL Normal 3.5-5.0 [facility] Comment on above: Performed By: #### E , CRP2 #### [address] [place] [address] #### IGA #### [facility] [address] [place] [address] #### TTGA2, EMABO #### The performing lab is in the report. Chloride [Moles/Vol] 98 mmol/L Normal 98-107 [facility] Comment on above: Performed By: #### E SR, CRP2 #### [facility] [address] [place] [address] #### IGA #### [facility] [address] [place] [address] #### TTGA2, EMABO #### The performing lab is in the report. Sodium [Moles/Vol] 139 mmol/L Normal 135-145 [facility] Comment on above: Performed By: #### E SR, CRP2 #### [facility] [address] [place] [place] [address] #### IGA #### [facility] [address] [place] [address] #### TTGA2, EMABO #### The performing lab is in the report. Comprehensive Metabolic Pane l w/ Reflex to MGon 10-24-2019 Albumin [Mass/Vol] 3.5 g/dL 3.5 - 5 g/dL [place] ALP [Catalytic activity/Vol] 93 U/L 38 - 126 U/L [place] ALT [Catalytic activity/Vol] 19 U/L 0 - 34 U/L [place] Comment on above: The ALT test is perf ormed by an updated assay method. Please note that the reference intervals have been changed and are now sex specific. Anion gap [Moles/Vol] 11 mmol/L [place], [place] AST [Catalytic activity/Vol] 32 U/L 15 - 46 U/L [place] Bilirubin Ql (U) 0.8 mg/dL 0.2 - 1.3 mg/dL [place] Calcium [Mass/Vol] 7.9 mg/dL Low 8.4 - 10. 4 mg/dL [place] Chloride [Moles/Vol] 98 mmol/L 98 - 10 7 mmol/L [place] CO2 [Moles/Vol] 30 mmol/L 22 - 30 mmol/L [place] Creatinine [Mass/Vol] 1.17 mg/dL 0.52 - 1.25 mg/dL [place] EGFR IF NonAfrican Swiss 51.4 mL/min Abnormal >60 [place] Comment on above: KDIGO guidelines pro [...] (S/P/Bld) [Vol rate/Area] 59.5 mL/min/{1.73_m2} Abnormal >60 [place] Glucose [Mass/Vol] 110 mg/dL High 70 - 100 mg/dL [place] Potassium [Moles/Vol] 3.6 mmol/L 3.5 - 5.1 mmol/L [place] Protein [Mass/Vol] 6.0 g/dL Low 6.3 - 8.2 g/dL [place] Sodium [Moles/Vol] 139 mmol/L 135 - 145 mmol/L [place] Urea nitrogen [Mass/Vol] 14 mg/dL 7 - 20 mg/dL [place] D-Dimer, Innovanceon 05-22-2 020 D-Dimer, Innovance 0.91 mg/L High 0.00-0.50 [facility] Comment on above: Result Comment: Inno myers D-Dimer values of <0.50 mg/L FEU can be used in combination with a pre-test probability model (e.g. Well's) to exclude pulmonary embolism (PE) disease, as well as an aid in the diagnosis of deep vein thrombosis (DVT). Performed By: #### E , CRP2 #### [facility] [address] [place] [address] #### IGA #### [facility] [address] [place] [address] #### TTGA2, EMABO #### The performing lab is in the report. D-Dimer, Quantitativeon 10-03 D-Dimer, Quant 0.91 mg/L High 0 - 0.5 mg/L [place] Comment on above: Innovance D-Dimer va lues of <0.50 mg/L FEU can be used in combination with a pre-test probability model (e.g. Well's) to exclude pulmonary embolism (PE) disease, as well as an aid in the diagnosis of deep vein thrombosis (DVT). Interpretation and review of laboratory results Abnormal [place] Test Performed by [facility], [address] [place], [place] [address] [place] [address] Hemogram w/ Autodiffon 10-23 Abs Baso Cnt 0.0 10*3/uL Normal 0.0-0.2 [facility] Comment on above: Performed By: #### Sky MARION, CRP2 #### [facility] [place] [address] #### IGA #### [facility] [address] [place] [address] #### TTGA2, EMABO #### The performing lab is in the report. Abs Neutrophile Cnt 1.9 10*3/uL Normal 1.8-7.0 [facility] Comment on above: Performed By: #### E , CRP2 #### [facility] [address] [place] [address] #### IGA #### [facility] [address] [place] [address] #### TTGA2, EMABO #### The performing lab is in the report. Basophils/100 WBC (Bld) 0.7 % Normal 0.0-2.0 [facility] Comment on above: Performed By: #### E SR, CRP2 #### [facility] [address] [place] [address] #### IGA #### [facility] [address] [place] [address] #### TTGA2, EMABO #### The performing lab is in the report. Eosinophils (Bld) [#/Vol] 0.1 10*3/uL Normal 0.0-0.5 [facility] Comment on above: Performed By: #### E SR, CRP2 #### [facility] [place] [address] #### IGA #### [address] [place] [address] #### TTGA2, EMABO #### The performing lab is in the report. Eosinophils/100 WBC (Bld) 1.2 % Normal 1.0-6.0 [facility] Comment on above: Performed By: #### E SR, CRP2 #### [facility] [place] [address] #### IGA #### [facility] [address] [place] [address] #### TTGA2, EMABO #### The performing lab is in the report. Erythrocyte distribution width (RBC) [Ratio] 17.8 % High 11.5-14.5 [facility] Comment on above: Performed By: #### E SR, CRP2 #### [facility] [address] [facility] [place] [address] #### IGA #### [address] [place] [address] #### TTGA2, EMABO #### The performing lab is in the report. Granulocytes/100 WBC (Bld) 39.1 % Low 40.0-80.0 [facility] Comment on above: Performed By: #### E SR, CRP2 #### [facility] [address] [place] [address] #### IGA #### [facility] [address] [place] [address] #### TTGA2, EMABO #### The performing lab is in the report. Hematocrit (Bld) [Volume fraction] 31.3 % Low 35.0-47.0 [facility] Comment on above: Performed By: #### E SR, CRP2 #### [facility] [place] [address] #### IGA #### [facility] [address] [place] [address] #### TTGA2, EMABO #### The performing lab is in the report. Hemoglobin (Bld) [Mass/Vol] 10.1 g/dL Low 11.7-16.0 [facility] Comment on above: Performed By: #### E SR, CRP2 #### [facility] [place] [address] #### IGA #### [address] [place] [address] #### TTGA2, EMABO #### The performing lab is in the report. Lymphocytes (Bld) [#/Vol] 2.6 10*3/uL Normal 1.0-4.3 [facility] [facility] Comment on above: Performed By: #### E SR, CRP2 #### [facility] [place] [address] #### IGA #### [facility] [address] [place] [address] #### TTGA2, EMABO #### The performing lab is in the report. Lymphocytes/100 WBC (Bld) 53.3 % High 20.0-40.0 [facility] Comment on above: Performed By: #### E SR, CRP2 #### [facility] [place] [address] [address] #### IGA #### [address] [place] [address] #### TTGA2, EMABO #### The performing lab is in the report. MCH (RBC) [Entitic mass] 30.9 pg Normal 26.0-34.0 [facility] Comment on above: Performed By: #### E SR, CRP2 #### [facility] [address] [place] [address] #### IGA #### [facility] [address] [place] [address] #### TTGA2, EMABO #### The performing lab is in the report. MCHC (RBC) [Mass/Vol] 32.4 % Normal 32.0-36.0 [facility] Comment on above: Performed By: #### E SR, CRP2 #### [facility] [place] [address] #### IGA #### [facility] [address] [place] [address] #### TTGA2, EMABO #### The performing lab is in the report. MCV (RBC) [Entitic vol] 95.4 fL Normal 79.0-98.0 [facility] Comment on above: Performed By: #### E SR, CRP2 #### [facility] [place] [address] #### IGA #### [facility] [address] [place] [address] #### TTGA2, EMABO #### The performing lab is in the report. Monocytes (Bld) [#/Vol] 0.3 10*3/uL Normal 0.0-0.8 [facility] Comment on above: Performed By: #### E SR, CRP2 #### [facility] [place] [address] #### IGA #### [facility] [address] [place] [address] #### TTGA2, EMABO #### The performing lab is in the report. Monocytes/100 WBC (Bld) 5.7 % Normal 2.0-10.0 [facility] Comment on above: Performed By: #### E SR, CRP2 #### [address] [place] [address] #### IGA #### [facility] [address] [place] [address] #### TTGA2, EMABO #### The performing lab is in the report. Platelet mean volume (Bld) [Entitic vol] 8.0 fL Normal 7.4-10.4 [facility] Comment on above: Performed By: #### Sky MARION, CRP2 #### [facility] [address] [place] [address] #### IGA #### [facility] [address] [place] [address] #### TTGA2, EMABO #### The performing lab is in the report. Platelets (Bld) [#/Vol] 193 10*3/uL Normal 140-440 [facility] Comment on above: Performed By: #### Sky MARION, CRP2 #### [facility] [place] [address] #### IGA #### [facility] [address] [place] [address] #### TTGA2, EMABO #### The performing lab is in the report. RBC (Bld) [#/Vol] 3.28 10*6/uL Low 3.80-5.20 [facility] Comment on above: Performed By: #### Sky MARION, CRP2 #### [facility] [place] [address] #### IGA #### [facility] [address] [place] [address] #### TTGA2, EMABO #### The performing lab is in the report. WBC (Bld) [#/Vol] 4.9 10*3/uL Normal 3.6-10.7 [facility] Comment on above: Performed By: #### E SR, CRP2 #### [facility] [address] [place] [address] #### IGA #### [facility] [address] [place] [address] #### TTGA2, EMABO #### The performing lab is in the report. LDHon 05-22-2020 LDH 301 U/L High 50-170 [facility] Comment on above: Performed By: #### E SR, CRP2 #### [facility] [address] [place] [address] #### IGA #### [facility] [address] [place] [address] #### TTGA2, EMABO #### The performing lab is in the report. Lactate Dehydrogenaseon 10-03 LD 301 U/L High 50 - 170 U/L [place], [place] NT pro BNPon 10-24-2019 Natriuretic peptide B (Bld) [Mass/Vol] 109 pg/mL Normal 0-125 [facility] Comment on above: Performed By: #### E , CRP2 #### [facility] [address] [facility] [place] [address] #### IGA #### [facility] [address] [place] [address] #### TTGA2, EMABO #### The performing lab is in the report. Otheron 10-24-2019 Test Performed by [facility], [address] [place], [place] [id number] [place] [address] Interpretation and review of laboratory results Abnormal [place], [place] Test Performed by [facility], [address] [place], [place] [id number] [place] [address] Procalcitoninon 10-24-2019 Interpretation See Below Normal [facility] Comment on above: Result Comment: PCT <0.50 = Low risk of severe sepsis and/or septic shock. PCT >2.00 = High risk of severe sepsis and/or septic shock. Performed By: #### E SR, CRP2 #### [facility] [address] [place] [address] #### IGA #### [facility] [address] [place] [address] #### TTGA2, EMABO #### The performing lab is in the report. [id number] 10-24-2019 SARS-CoV-2 SARS-CoV-2 --> Statu s: F Not Detected Expected Result: Not Detected _ Real-time, RT-PCR performed on the [facility] by the [facility] Microbiology Service. Negative results do not preclude SARS-CoV-2 infection and should not be used as the sole basis for treatment or other patient management decisions. This assay was developed by [employer] and distributed under an Emergency Use Authorization (EUA) granted by the FDA for the qualitative detection of SARS-CoV-2 nucleic acid. Expected Result: Not Detected _ Real-time, RT-PCR performed on the [facility] by the [facility] Microbiology Service. Negative results do not preclude SARS-CoV-2 infection and should not be used as the sole basis for treatment or other patient management decisions. This assay was developed by [employer] and distributed under an Emergency Use Authorization (EUA) granted by the FDA for the qualitative detection of SARS-CoV-2 nucleic acid. Normal [facility] Comment on above: Order Comment: Speci men Source Comment:Nasopharyngeal Swab Performed By: #### Sky MARION, CRP2 #### [facility] [address] [place] [address] #### IGA #### [facility] [address] [place] [address] #### TTGA2, EMABO #### The performing lab is in the report. TROPONINon 10-24-2019 Troponin I.cardiac [Mass/Vol] ng/mL 0 - 0.034 ng/mL [place] Comment on above: . Test Performed by [facility], [address], [place], [place] [address] [place], [place] Troponinon 10-24-2019 Troponin I.cardiac [Mass/Vol] ng/mL 0 - 0.034 ng/mL [place] Comment on above: . Troponin Ion 10-24-2019 Troponin I.cardiac [Mass/Vol] ng/mL Normal 0.000-0.034 [facility] Comment on above: Result Comment: . Performed By: #### E SR, CRP2 #### [facility] [address] [place] [address] #### IGA #### [facility] [address] [place] [address] #### TTGA2, EMABO #### The performing lab is in the report. XR CHEST PORTABLEon 10-24-19 Patient Name: ALFIE HUGHES MS ---Diagnostic Radiology--- Exam Date/Time 10/24/2019 18:13:21 EDT Exam CR Chest Portable Ordering Physician MD ARROYO JASON T Accession Number [id number] CPT4 Codes 61091 () Reason For Exam cough, dyspnea, COVID+ [...] consider CT scanning. Report Dictated on Workstation: [employer] --- Final --- Dictating Physician: MD SCOTT RISA Signed Date and Time: 10/24/2019 6:20 pm Signed by: MD SCOTT RISA Transcribed Date and Time: 10/24/2019 6:21 [place], [place] [facility] Incoming Radiology Results From [facility] - 10/24/2019 6:22 PM EDT Patient Name: ALFIE HOGAN ---Diagnostic Radiology--- Exam Date/Time 10/24/2019 18:13:21 EDT Exam CR Chest Portable Ordering Physician MD ARROYO JASON T Accession Number [id number] CPT4 Codes 01174 () Reason For Exam cough, dyspnea, COVID+ [...] consider CT scanning. Report Dictated on Workstation: [employer] --- Final --- Dictating Physician: MD SANDRINE, BRIE Signed Date and Time: 10/24/2019 6:20 pm Signed by: MD SCOTT RISA Transcribed Date and Time: 10/24/2019 6:21 [facility], [place] Surgical Pathologyon 020 Surgical Pathology [id number] [facility] PATHOLOGY AND LABORATORY MEDICINE [address] [place] [address] Fax - FINAL SURGICAL PATHOLOGY REPORT NAME: ALFIE HOGAN : 1960 58 Y F BILLING NO.: [id number] LOCATION: [facility] PROCEDURE 07/25/2019 DATE: SURGEON: KODY [...] characteristics determined by the clinical laboratories of [facility]. They have not been cleared by [...] negativity on decalcified specimens. Case reviewed at [address] [address]. DEPARTMENT OF PATHOLOGY AND LABORATORY MEDICINE [place], [place] [address] Normal [facility] C. difficile toxin Molecular on 03-08-2019 CLOSTRIDIUM DIFFICILE NEGATIVE Methodology - Real Time PCR (Cepheid) Clinical judgement must be used when interpreting results. Positive results may reflect colonization. Indeterminate results suggest a new specimen be submitted. [place], [place] Test Performed by [facility], [address] [place] [address] [place], [place] Clostridium difficile PCRon 03-08-2019 Clostridium difficile [...] suggest a new specimen be submitted. Normal [facility] Comment on above: Performed By: #### C DPCR #### [address] [address] Calprotectin, Fecalon 2018 Protein [Mass/Vol] g/dL Normal <=50 [facility] Comment on above: Result Comment: INTE RPRETIVE INFORMATION: Calprotectin, Fecal 50 ug/g or less: Normal 51-120 ug/g: Borderline elevated, test should be re-evaluated in 4-6 weeks. 121 ug/g or greater: Abnormal Performed by [facility], [address] [place] [address],[place] [id number] [email or web address] MD - Lab. Director Performed By: #### G IPCR #### [facility] [address] [place] [address] #### CALPO #### The performing lab is in the report. Endomysial Ab, IgAon 019 Endomysial Ab, IgA < 1 : 10 Normal <1:10 [facility] Comment on above: Result Comment: INTE RPRETIVE INFORMATION: Endomysial Antibody, IgA Titer The endomysial antigen has been identified as the protein cross-linking enzyme known as tissue transglutaminase. Performed by [facility], [address] [facility],[place] [id number] [email or web address], Heriberto Nelson MD - Lab. Director Performed By: #### Sky SR, CRP2 #### [facility] [address] [place] [address] #### IGA #### [facility] [address] [place] [address] #### TTGA2, EMABO #### The performing lab is in the report. TTG, IgAon 02-17-2019 TTG, IgA 0 U/mL Normal 0-3 [facility] Comment on above: Result Comment: INTE [...] positive predictive value for disease. Performed by [facility], [address] [facility],[place] [id number] [email or web address], Heriberto Nelson MD - Lab. Director Performed By: #### E SR, CRP2 #### [facility] [address] [place] [address] #### IGA #### [facility] [address] [place] [address] #### TTGA2, EMABO #### The performing lab is in the report. C-Reactive Proteinon 019 CRP [Mass/Vol] mg/L Normal 0.0-6.0 [facility] Comment on above: Result Comment: . Performed By: #### E SR, CRP2 #### [facility] [address] [place] [address] #### IGA #### [facility] [address] [place] [address] #### TTGA2, EMABO #### The performing lab is in the report. CRP [Mass/Vol] mg/L 0 - 6 mg/L [place] Comment on above: . Test Performed by [facility], [address] , [place], [place] [address] [place] C. difficile toxin Molecular on 02-14-2019 CLOSTRIDIUM DIFFICILE POSITIVE Methodology - Real Time PCR ([employer]) Clinical judgement must be used when interpreting results. Positive results may reflect colonization. Indeterminate results suggest a new specimen be submitted. Abnormal [place], [place] Interpretation and review of laboratory results Abnormal [place] Test Performed by [facility], [address] [place] [address] [place], [place] Clostridium difficile PCRon 02-14-2019 Clostridium difficile [...] suggest a new specimen be submitted. Abnormal [facility] Comment on above: Performed By: #### C DPCR #### [facility] [address] [place] [address] GASTROINTESTINAL PCR PANELon 02-14-2019 GASTROINTESTINAL PCR PANEL [...] assay can be ordered separately with [employer] ([id number]). Gastrointestinal PCR Panel. The [employer] Gastrointestinal PCR Panel detects the following targets: [...] assay can be ordered separately with [employer] ([id number]). Normal [facility] Comment on above: Performed By: #### G IPCR #### [address] [address] #### CALPO #### The performing lab is in the report. Gastrointestinal Panel by ADALID Rios 02-14-2019 Gastrointestinal PCR Panel NEGATIVE: No targets were detected by the [employer] Gastrointestinal PCR Panel. The [employer] Gastrointestinal PCR Panel detects the following targets: [...] the assay can be ordered separately with [facility] ([id number]). [facility] [place], [place] Test Performed by [facility], [address] [place] [address] [facility] [place], [place] IgAon 02-14-2019 IgA [Mass/Vol] mg/dL Low 70 - 400 mg/dL [facility] [place] Interpretation and review of laboratory results Abnormal [facility] [place] Test Performed by [facility], [address], [place], [place] [address] [facility], [place] IgA,Bloodon 02-14-2019 IgA,Blood < 40.0 Low 70.0-400.0 [facility] Comment on above: Performed By: #### E SR, CRP2 #### [facility] [address] [place] [address] #### IGA #### [facility] [address] [place] [address] #### TTGA2, EMABO #### The performing lab is in the report. Sed Rateon 02-14-2019 Sed Rate 9 mm/h Normal 0-20 [facility] Comment on above: Performed By: #### E SR, CRP2 #### [facility] [address] [place] [address] #### IGA #### [facility] [address] [place] [address] #### TTGA2, EMABO #### The performing lab is in the report. Sedimentation Rateon 019 Sed Rate 9 mm/h 0 - 20 mm[facility]h [facility] Performed by [facility], [address] , [place], [place] [address] [place], [place] Office Visit: [facility]: Lumbar st rain, neck pain, bilateral hip painon 03-08-2017 Fall risk assessment No Invalid Interpretation Code [facility] Work Phone: Protein mass conc T Invalid Interpretation Code [facility] Work Phone: Protein mass conc Done Invalid Interpretation Code [facility] Work Phone: Tobacco smoking status NHIS Never Invalid Interpretation Code [facility] Work Phone: Tobacco smoking status NHIS Never smoker Invalid Interpretation Code [facility] Work Phone: Culture, urine Bacteria identified Cx Nom (U) Culture exhibits no growth. [facility] Work Phone: Vital Signs Date Time Vital Sign Value Performing Clinician Bobbi lin 11-10-2024 12:56-0400 Heart rate 101 /min Corin Mariscal MD Work Phone: [facility] 11-10-2024 12:56-0400 Respiratory rate 16 /min Corin Mariscal MD Work Phone: [facility] 11-10-2024 10:17-0400 Inhaled oxygen flow rate 2 L/min Corin Mariscal MD Work Phone: [facility] 11-10-2024 10:00-0400 Body temperature 98.9 [degF] Corin Mariscal MD Work Phone: [facility] 11-10-2024 10:00-0400 Diastolic blood pressure 64 mm[Hg] Corin Mariscal MD Work Phone: [facility] 11-10-2024 10:00-0400 SaO2% (BldA) [Mass fraction] 94 % Corin Mariscal MD Work Phone: [facility] 11-10-2024 10:00-0400 Systolic blood pressure 120 mm[Hg] Corin Mariscal MD Work Phone: [facility] 11-08-2024 13:07-0400 Body height 170.18 cm Corin Mariscal MD Work Phone: [facility] 11-08-2024 13:07-0400 Body weight 135.9 kg Corin Mariscal MD Work Phone: [facility] 11-07-2024 19:56-0400 Body mass index (BMI) [Ratio] 46.9 kg/m2 Corin Mariscal MD Work Phone: [facility] 11-07-2024 16:36-0400 Body temperature 98.1 [degF] Corin Mariscal MD Work Phone: [facility] 11-07-2024 16:36-0400 Diastolic blood pressure 71 mm[Hg] Corin Mariscal MD Work Phone: 7(544)256-824633 [place] [address] 11-07-2024 16:36-0400 Heart rate 90 /min Corin Mariscal MD Work Phone: 9(938)549-526833 [place] [address] 11-07-2024 16:36-0400 Respiratory rate 18 /min Corin Mariscal MD Work Phone: 8(798)606-011733 [place] [address] 11-07-2024 16:36-0400 SaO2% (BldA) [Mass fraction] 100 % Corin Mariscal MD Work Phone: 2(013)936-287733 [place] [address] 11-07-2024 16:36-0400 Systolic blood pressure 108 mm[Hg] Corin Mariscal MD Work Phone: 9(888)246-675064 [place] [address] 11-07-2024 15:36-0400 Inhaled oxygen flow rate 3 L/min Corin Mariscal MD Work Phone: 7(387)040-645933 [place] [address] 11-07-2024 10:18-0400 Body height 172.72 cm Corin Mariscal MD Work Phone: 0(175)425-074333 [place] [address] 11-07-2024 10:18-0400 Body mass index (BMI) [Ratio] 38.2 kg/m2 Corin Mariscal MD Work Phone: [facility] 11-07-2024 10:18-0400 Body weight 114.3 kg Corin Mariscal MD Work Phone: 3(511)106-169264 [place] [address] 10-21-2024 14:16-0400 Body temperature 96.3 [degF] Corin Mariscal MD Work Phone: 4(623)354-920864 [place] [address] 10-21-2024 14:16-0400 Diastolic blood pressure 77 mm[Hg] Corin Mariscal MD Work Phone: 8(490)525-246964 [place] [address] 10-21-2024 14:16-0400 Heart rate 86 /min Corin Mariscal MD Work Phone: [facility] 10-21-2024 14:16-0400 Respiratory rate 16 /min Corin Mariscal MD Work Phone: [facility] 10-21-2024 14:16-0400 SaO2% (BldA) [Mass fraction] 100 % Corin Mariscal MD Work Phone: [facility] 10-21-2024 14:16-0400 Systolic blood pressure 119 mm[Hg] Corin Mariscal MD Work Phone: [facility] 10-21-2024 12:03-0400 Body height 172.72 cm Corin Mariscal MD Work Phone: [facility] 10-21-2024 12:03-0400 Body mass index (BMI) [Ratio] 38 kg/m2 Corin Mariscal MD Work Phone: [facility] 10-21-2024 12:03-0400 Body weight 113.39 kg Corin Mariscal MD Work Phone: [facility] 10-21-2024 12:03-0400 Inhaled oxygen flow rate 4 L/min Corin Mariscal MD Work Phone: [facility] 10-15-2024 14:45-0400 Body height 165 cm Jose Dennison DO Work Phone: [facility] 10-15-2024 14:45-0400 Body mass index (BMI) [Ratio] 43.07 kg/m2 Jose Dennison DO Work Phone: [facility] 10-15-2024 14:45-0400 Body temperature 97.7 [degF] Jose Dennison DO Work Phone: [facility] 10-15-2024 14:45-0400 Body weight 117.25 kg Jose Dennison DO Work Phone: [facility] 10-15-2024 14:45-0400 Diastolic blood pressure 58 mm[Hg] Jose Dennison DO Work Phone: [facility] 10-15-2024 14:45-0400 Heart rate 94 /min Jose Dennison DO Work Phone: [facility] 10-15-2024 14:45-0400 SaO2% (BldA) [Mass fraction] 92 % Jose Dennison DO Work Phone: [facility] Comment on above: 3L of O2 10-15-2024 14:45-0400 Systolic blood pressure 103 mm[Hg] Jose Dennison DO Work Phone: [facility] 10-14-2024 15:02-0400 Body temperature 96.9 [degF] Corin Mariscal MD Work Phone: [facility] 10-14-2024 15:02-0400 Diastolic blood pressure 78 mm[Hg] Corin Mariscal MD Work Phone: [facility] 10-14-2024 15:02-0400 Heart rate 80 /min Corin Mariscal MD Work Phone: [facility] 10-14-2024 15:02-0400 Respiratory rate 16 /min Corin Mariscal MD Work Phone: [facility] 10-14-2024 15:02-0400 SaO2% (BldA) [Mass fraction] 99 % Corin Mariscal MD Work Phone: [facility] 10-14-2024 15:02-0400 Systolic blood pressure 125 mm[Hg] Corin Mariscal MD Work Phone: [facility] 10-14-2024 11:58-0400 Body height 172.72 cm Corin Mariscal MD Work Phone: [facility] 10-14-2024 11:58-0400 Body mass index (BMI) [Ratio] 38 kg/m2 Corin Mariscal MD Work Phone: [facility] 10-14-2024 11:58-0400 Body weight 113.39 kg Corin Mariscal MD Work Phone: [facility] 10-14-2024 11:58-0400 Inhaled oxygen flow rate 4 L/min Corin Mariscal MD Work Phone: [facility] 09-30-2024 21:00-0400 Heart rate 95 /min Corin Mariscal MD Work Phone: [facility] 09-30-2024 21:00-0400 Respiratory rate 15 /min Corin Mariscal MD Work Phone: [facility] 09-30-2024 21:00-0400 SaO2% (BldA) [Mass fraction] 95 % Corin Mariscal MD Work Phone: [facility] 09-30-2024 20:59-0400 Body temperature 98.1 [degF] Corin Mariscal MD Work Phone: [facility] 09-30-2024 20:59-0400 Diastolic blood pressure 71 mm[Hg] Corin Mariscal MD Work Phone: [facility] 09-30-2024 20:59-0400 Systolic blood pressure 125 mm[Hg] Corin Mariscal MD Work Phone: [facility] 09-30-2024 17:23-0400 Body mass index (BMI) [Ratio] 40.2 kg/m2 Corin Mariscal MD Work Phone: [facility] 09-30-2024 17:23-0400 Body weight 120.1 kg Corin Mariscal MD Work Phone: [facility] 08-13-2024 15:26-0400 Body height 172.72 cm Corin Mariscal MD Work Phone: [facility] 08-13-2024 15:26-0400 Body weight 127.6 kg Corin Mariscal MD Work Phone: [facility] 08-13-2024 13:40-0400 Body temperature 98.2 [degF] Corin Mariscal MD Work Phone: [facility] 08-13-2024 13:40-0400 Diastolic blood pressure 68 mm[Hg] Corin Mariscal MD Work Phone: [facility] 08-13-2024 13:40-0400 Heart rate 95 /min Corin Mariscal MD Work Phone: [facility] 08-13-2024 13:40-0400 Inhaled oxygen flow rate 2 L/min Corin Mariscal MD Work Phone: [facility] 08-13-2024 13:40-0400 Respiratory rate 14 /min Corin Mariscal MD Work Phone: [facility] 08-13-2024 13:40-0400 SaO2% (BldA) [Mass fraction] 90 % Corin Mariscal MD Work Phone: [facility] 08-13-2024 13:40-0400 Systolic blood pressure 133 mm[Hg] Corin Mariscal MD Work Phone: [facility] 08-13-2024 04:00-0400 Body mass index (BMI) [Ratio] 42.6 kg/m2 Corin Mariscal MD Work Phone: [facility] 08-09-2024 20:59-0500 Body temperature 98.2 [degF] Corin Mariscal MD Work Phone: [facility] 08-09-2024 20:59-0500 Diastolic blood pressure 63 mm[Hg] Corin Mariscal MD Work Phone: [facility] 08-09-2024 20:59-0500 Heart rate 93 /min Corin Mariscal MD Work Phone: [facility] 08-09-2024 20:59-0500 Respiratory rate 24 /min Corin Mariscal MD Work Phone: [facility] 08-09-2024 20:59-0500 SaO2% (BldA) [Mass fraction] 96 % Corin Mariscal MD Work Phone: [facility] 08-09-2024 20:59-0500 Systolic blood pressure 142 mm[Hg] Corin Mariscal MD Work Phone: [facility] 08-09-2024 19:16-0500 Inhaled oxygen flow rate 4.5 L/min Corin Mariscal MD Work Phone: [facility] 08-09-2024 17:16-0500 Body height 172.72 cm Corin Mariscal MD Work Phone: [facility] 08-09-2024 17:16-0500 Body mass index (BMI) [Ratio] 36.5 kg/m2 Corin Mariscal MD Work Phone: [facility] 08-09-2024 17:16-0500 Body weight 108.86 kg Corin Mariscal MD Work Phone: [facility] 07-17-2024 16:50-0500 Body temperature 98.8 [degF] Corin Mariscal MD Work Phone: [facility] 07-17-2024 16:50-0500 Diastolic blood pressure 70 mm[Hg] Corin Mariscal MD Work Phone: [facility] 07-17-2024 16:50-0500 Heart rate 88 /min Corin Mariscal MD Work Phone: [facility] 07-17-2024 16:50-0500 Inhaled oxygen flow rate 3 L/min Corin Mariscal MD Work Phone: [facility] 07-17-2024 16:50-0500 Respiratory rate 18 /min Corin Mariscal MD Work Phone: [facility] 07-17-2024 16:50-0500 SaO2% (BldA) [Mass fraction] 98 % Corin Mariscal MD Work Phone: [facility] 07-17-2024 16:50-0500 Systolic blood pressure 144 mm[Hg] Corin Mariscal MD Work Phone: [facility] 07-17-2024 05:34-0500 Body mass index (BMI) [Ratio] 41.6 kg/m2 Corin Mariscal MD Work Phone: [facility] 07-17-2024 05:34-0500 Body weight 124.7 kg Corin Mariscal MD Work Phone: [facility] 07-16-2024 22:58-0500 Inhaled oxygen concentration 30 % Corin Mariscal MD Work Phone: [facility] 07-13-2024 18:19-0500 Body temperature 97.8 [degF] Corin Mariscal MD Work Phone: [facility] 07-13-2024 18:19-0500 Diastolic blood pressure 46 mm[Hg] Corin Mariscal MD Work Phone: [facility] 07-13-2024 18:19-0500 Heart rate 113 /min Corin Mariscal MD Work Phone: [facility] 07-13-2024 18:19-0500 Respiratory rate 20 /min Corin Mariscal MD Work Phone: [facility] 07-13-2024 18:19-0500 SaO2% (BldA) [Mass fraction] 98 % Corin Mariscal MD Work Phone: [facility] 07-13-2024 18:19-0500 Systolic blood pressure 132 mm[Hg] Corin Mariscal MD Work Phone: [facility] 07-13-2024 17:00-0500 Inhaled oxygen flow rate 3 L/min Corin Mariscal MD Work Phone: [facility] 07-13-2024 14:18-0500 Body mass index (BMI) [Ratio] 42.4 kg/m2 Corin Mariscal MD Work Phone: [facility] 07-13-2024 14:18-0500 Body weight 122.9 kg Corin Mariscal MD Work Phone: [facility] 08-18-2023 23:12-0400 Body temperature 98.1 [degF] Dr. Bernardino Moran Work Phone: [facility] 08-18-2023 23:12-0400 Diastolic blood pressure 64 mm[Hg] Dr. Bernardino Moran Work Phone: [facility] 08-18-2023 23:12-0400 Heart rate 88 /min Dr. Bernardino Moran Work Phone: [facility] 08-18-2023 23:12-0400 Respiratory rate 14 /min Dr. Bernardino Moran Work Phone: [facility] 08-18-2023 23:12-0400 SaO2% (BldA) [Mass fraction] 94 % Dr. Bernardino Moran Work Phone: [facility] 08-18-2023 23:12-0400 Systolic blood pressure 108 mm[Hg] Dr. Bernardino Moran Work Phone: [facility] 08-18-2023 21:27-0400 Inhaled oxygen flow rate 2 L/min Dr. Bernardino Moran Work Phone: [facility] 08-18-2023 19:19-0400 Body height 170.[address] Bernardino Moran Work Phone: [facility] 08-13-2023 20:51-0400 Body temperature 97.7 [degF] Brandon Bean MD Work Phone: [facility] 08-13-2023 20:51-0400 Diastolic blood pressure 92 mm[Hg] Brandon Bean MD Work Phone: [facility] 08-13-2023 20:51-0400 Heart rate 119 /min Brandon Bean MD Work Phone: [facility] 08-13-2023 20:51-0400 Respiratory rate 18 /min Brandon Bean MD Work Phone: [facility] 08-13-2023 20:51-0400 SaO2% (BldA) [Mass fraction] 97 % Brandon Bean MD Work Phone: [facility] 08-13-2023 20:51-0400 Systolic blood pressure 134 mm[Hg] Brandon Bean MD Work Phone: [facility] 07-12-2023 13:39-0500 Diastolic blood pressure 69 mm[Hg] Dr. Bernardino Moran Work Phone: [facility] 07-12-2023 13:39-0500 Heart rate 97 /min Dr. Bernardino Moran Work Phone: [facility] 07-12-2023 13:39-0500 Respiratory rate 18 /min Dr. Bernardino Moran Work Phone: [facility] 07-12-2023 13:39-0500 SaO2% (BldA) [Mass fraction] 99 % Dr. Bernardino Moran Work Phone: [facility] 07-12-2023 13:39-0500 Systolic blood pressure 104 mm[Hg] Dr. Bernardino Moran Work Phone: [facility] 07-12-2023 09:55-0500 Body height 170.[address] Bernardino Moran Work Phone: [facility] 07-12-2023 09:55-0500 Body mass index (BMI) [Ratio] 38.3 kg/m2 Dr. Bernardino Moran Work Phone: [facility] 07-12-2023 09:55-0500 Body temperature 98.2 [degF] Dr. Bernardino Moran Work Phone: [facility] 07-12-2023 09:55-0500 Body weight [address] Bernardino Moran Work Phone: [facility] 07-12-2023 09:55-0500 Inhaled oxygen flow rate 3 L/min Dr. Bernardino Moran Work Phone: [facility] 07-05-2023 12:44-0500 Body weight 112.5 kg Annika Collado MD, PhD Work Phone: [facility] 07-05-2023 12:44-0500 Diastolic blood pressure 85 mm[Hg] Annika Collado MD, PhD Work Phone: [facility] 07-05-2023 12:44-0500 Heart rate 102 /min Annika Collado MD, PhD Work Phone: [facility] 07-05-2023 12:44-0500 SaO2% (BldA) [Mass fraction] 93 % Annika Collado MD, PhD Work Phone: [facility] 07-05-2023 12:44-0500 Systolic blood pressure 114 mm[Hg] Annika Collado MD, PhD Work Phone: [facility] 06-29-2023 08:23-0500 Body mass index (BMI) [Ratio] 37.5 kg/m2 Dr. Bernardino Moran Work Phone: [facility] 06-29-2023 08:23-0500 Body temperature 98 [degF] Dr. Bernardino Moran Work Phone: [facility] 06-29-2023 08:23-0500 Body weight 112.[address] Bernardino Moran Work Phone: [facility] 06-29-2023 08:23-0500 Diastolic blood pressure 82 mm[Hg] Dr. Bernardino Moran Work Phone: [facility] 06-29-2023 08:23-0500 Heart rate 111 /min Dr. Bernardino Moran Work Phone: [facility] 06-29-2023 08:23-0500 Inhaled oxygen flow rate 3 L/min Dr. Bernardino Moran Work Phone: [facility] 06-29-2023 08:23-0500 Respiratory rate 18 /min Dr. Bernardino Moran Work Phone: [facility] 06-29-2023 08:23-0500 SaO2% (BldA) [Mass fraction] 96 % Dr. Bernardino Moran Work Phone: [facility] 06-29-2023 08:23-0500 Systolic blood pressure 137 mm[Hg] Dr. Bernardino Moran Work Phone: [facility] 03-15-2023 11:15-0400 Body height 172.[address] Bernardino Moran Work Phone: [facility] 03-15-2023 11:15-0400 Body weight 107.[address] Bernardino Moran Work Phone: [facility] 03-15-2023 11:15-0400 Heart rate 89 /min Dr. Bernardino Moran Work Phone: 7(738)[phone] [place] [address] 03-15-2023 11:15-0400 Inhaled oxygen flow rate 3 L/min Dr. Bernardino Moran Work Phone: 5(131)064-295613 [place] [address] 03-15-2023 11:15-0400 SaO2% (BldA) [Mass fraction] 92 % Dr. Bernardino Morna Work Phone: 6(486)[phone] [place] [address] 03-05-2023 05:37-0400 Body mass index (BMI) [Ratio] 36.6 kg/m2 Dr. Bernardino Moran Work Phone: 9(752)[phone] [place] [address] 03-05-2023 05:37-0400 Body temperature 97.4 [degF] Dr. Bernardino Moran Work Phone: [facility] 03-05-2023 05:37-0400 Body weight 109.[address] Bernardino Moran Work Phone: [facility] 03-05-2023 05:37-0400 Diastolic blood pressure 62 mm[Hg] Dr. Bernardino Moran Work Phone: 3(742)666-650413 [place] [address] 03-05-2023 05:37-0400 Heart rate 99 /min Dr. Bernardino Moran Work Phone: [facility] 03-05-2023 05:37-0400 Inhaled oxygen flow rate 3 L/min Dr. Bernardino Moran Work Phone: [facility] 03-05-2023 05:37-0400 Respiratory rate 18 /min Dr. Bernardino Moran Work Phone: [facility] 03-05-2023 05:37-0400 SaO2% (BldA) [Mass fraction] 95 % Dr. Bernardino Moran Work Phone: [facility] 03-05-2023 05:37-0400 Systolic blood pressure 139 mm[Hg] Dr. Bernardino Moran Work Phone: [facility] 02-15-2023 11:50-0400 Body height 172.7 cm Bernardino Moran MD Work Phone: [facility] 02-15-2023 11:50-0400 Body mass index (BMI) [Ratio] 36.43 kg/m2 Bernardino Moran MD Work Phone: [facility] 02-15-2023 11:50-0400 Body weight 108.68 kg Bernardino Moran MD Work Phone: [facility] 02-15-2023 11:50-0400 Diastolic blood pressure 53 mm[Hg] Bernardino Moran MD Work Phone: [facility] 02-15-2023 11:50-0400 Heart rate 65 /min Bernardino Moran MD Work Phone: [facility] 02-15-2023 11:50-0400 SaO2% (BldA) [Mass fraction] 94 % Bernardino Moran MD Work Phone: [facility] 02-15-2023 11:50-0400 Systolic blood pressure 96 mm[Hg] Bernardino Moran MD Work Phone: [facility] 01-04-2023 11:27-0400 Body height 172.[address] Bernardino Moran Work Phone: [facility] 01-04-2023 11:27-0400 Body mass index (BMI) [Ratio] 34.9 kg/m2 Dr. Bernardino Moran Work Phone: [facility] 01-04-2023 11:27-0400 Body temperature 98.9 [degF] Dr. Bernardino Moran Work Phone: [facility] 01-04-2023 11:27-0400 Body weight 104.[address] Bernardino Moran Work Phone: [facility] 01-04-2023 11:27-0400 Heart rate 107 /min Dr. Bernardino Moran Work Phone: [facility] 01-04-2023 11:27-0400 Respiratory rate 16 /min Dr. Bernardino Moran Work Phone: [facility] 01-04-2023 11:27-0400 SaO2% (BldA) [Mass fraction] 96 % Dr. Bernardino Moran Work Phone: [facility] 01-04-2023 10:58-0400 Body mass index (BMI) [Ratio] 35.9 kg/m2 Dr. Bernardino Moran Work Phone: [facility] 01-04-2023 10:58-0400 Body temperature 98.7 [degF] Dr. Bernardino Moran Work Phone: [facility] 01-04-2023 10:58-0400 Body weight 107.[address] Bernardino Moran Work Phone: [facility] 01-04-2023 10:58-0400 Diastolic blood pressure 82 mm[Hg] Dr. Bernardino Moran Work Phone: [facility] 01-04-2023 10:58-0400 Heart rate 109 /min Dr. Bernardino Moran Work Phone: [facility] 01-04-2023 10:58-0400 Respiratory rate 20 /min Dr. Bernardino Moran Work Phone: [facility] 01-04-2023 10:58-0400 SaO2% (BldA) [Mass fraction] 85 % Dr. Bernardino Moran Work Phone: [facility] 01-04-2023 10:58-0400 Systolic blood pressure 150 mm[Hg] Dr. Bernardino Moran Work Phone: [facility] 07-16-2022 19:48-0500 Body temperature 98 [degF] Dr. Bernardino Moran Work Phone: [facility] 07-16-2022 19:48-0500 Diastolic blood pressure 92 mm[Hg] Dr. Bernardino Moran Work Phone: [facility] 07-16-2022 19:48-0500 Heart rate 105 /min Dr. Bernardino Moarn Work Phone: [facility] 07-16-2022 19:48-0500 Inhaled oxygen flow rate 3 L/min Dr. Bernardino Moran Work Phone: [facility] 07-16-2022 19:48-0500 Respiratory rate 18 /min Dr. Bernardino Moran Work Phone: [facility] 07-16-2022 19:48-0500 SaO2% (BldA) [Mass fraction] 95 % Dr. Bernardino Moran Work Phone: [facility] 07-16-2022 19:48-0500 Systolic blood pressure 156 mm[Hg] Dr. Bernardino Moarn Work Phone: [facility] 07-16-2022 17:28-0500 Body height 170.[address] Bernardino Moarn Work Phone: [facility] 07-16-2022 17:28-0500 Body mass index (BMI) [Ratio] 35.5 kg/m2 Dr. Bernardino Moran Work Phone: [facility] 07-16-2022 17:28-0500 Body weight 102.[address] Bernardino Moran Work Phone: [facility] 06-07-2022 10:53-0500 Diastolic blood pressure 92 mm[Hg] Bernardino Moran MD Work Phone: [facility] 06-07-2022 10:53-0500 Systolic blood pressure 156 mm[Hg] Bernardino Moran MD Work Phone: [facility] 06-07-2022 10:11-0500 Body height 172.7 cm Bernardino Moran MD Work Phone: [facility] 06-07-2022 10:11-0500 Body mass index (BMI) [Ratio] 32.99 kg/m2 Bernardino Moran MD Work Phone: [facility] 06-07-2022 10:11-0500 Body weight 98.43 kg Bernardino Moran MD Work Phone: [facility] 06-07-2022 10:11-0500 Heart rate 115 /min Bernardino Moran MD Work Phone: [facility] 06-07-2022 10:11-0500 SaO2% (BldA) [Mass fraction] 95 % Bernardino Moran MD Work Phone: [facility] 04-19-2022 11:10-0500 Body height 170.[address] Bernardino Moran Work Phone: [facility] 04-19-2022 11:10-0500 Body mass index (BMI) [Ratio] 31.6 kg/m2 Dr. Bernardino Moran Work Phone: [facility] 04-19-2022 11:10-0500 Body weight 91.[address] Bernardino Moran Work Phone: [facility] 04-17-2022 10:34-0500 Body temperature 98.4 [degF] Dr. Bernardino Moran Work Phone: [facility] 04-17-2022 10:34-0500 Diastolic blood pressure 72 mm[Hg] Dr. Bernardino Moran Work Phone: [facility] 04-17-2022 10:34-0500 Heart rate 104 /min Dr. Bernardino Moran Work Phone: [facility] 04-17-2022 10:34-0500 Respiratory rate 14 /min Dr. Bernardino Moran Work Phone: [facility] 04-17-2022 10:34-0500 SaO2% (BldA) [Mass fraction] 98 % Dr. Bernardino Moran Work Phone: [facility] 04-17-2022 10:34-0500 Systolic blood pressure 128 mm[Hg] Dr. Bernardino Moran Work Phone: [facility] 03-15-2022 12:42-0400 Body height 170.[address] Bernardino Moran Work Phone: [facility] Work Phone: 03-15-2022 12:42-0400 Body mass index (BMI) [Ratio] 34.4 kg/m2 Dr. Bernardino Moran Work Phone: [facility] 03-15-2022 12:42-0400 Body temperature 98.2 [degF] Dr. Bernardino Moran Work Phone: [facility] 03-15-2022 12:42-0400 Body weight 99.[address] Bernardino Moran Work Phone: [facility] 03-15-2022 12:42-0400 Diastolic blood pressure 67 mm[Hg] Dr. Bernardino Moran Work Phone: [facility] 03-15-2022 12:42-0400 Heart rate 88 /min Dr. Bernardino Moran Work Phone: [facility] 03-15-2022 12:42-0400 Inhaled oxygen flow rate 3 L/min Dr. Bernardino Moran Work Phone: [facility] 03-15-2022 12:42-0400 Respiratory rate 16 /min Dr. Bernardino Moran Work Phone: [facility] 03-15-2022 12:42-0400 SaO2% (BldA) [Mass fraction] 100 % Dr. Bernardino Moran Work Phone: [facility] 03-15-2022 12:42-0400 Systolic blood pressure 90 mm[Hg] Dr. Bernardino Moran Work Phone: [facility] 12-31-2021 09:50-0400 Body temperature 98.2 [degF] Dr. Bernardino Moran Work Phone: [facility] Work Phone: 12-31-2021 09:50-0400 Diastolic blood pressure 53 mm[Hg] Dr. Bernardino Moran Work Phone: [facility] Work Phone: 12-31-2021 09:50-0400 Heart rate 74 /min Dr. Bernardino Moran Work Phone: [facility] Work Phone: 12-31-2021 09:50-0400 Respiratory rate 15 /min Dr. Bernardino Moran Work Phone: [facility] Work Phone: 12-31-2021 09:50-0400 SaO2% (BldA) [Mass fraction] 99 % Dr. Bernardino Moran Work Phone: [facility] Work Phone: 12-31-2021 09:50-0400 Systolic blood pressure 105 mm[Hg] Dr. Bernardino Moran Work Phone: [facility] Work Phone: 12-31-2021 04:53-0400 Body weight [address] Bernardino Moran Work Phone: [facility] Work Phone: 12-30-2021 11:03-0400 Body height 172.[address] Bernardino Moran Work Phone: [facility] Work Phone: 12-29-2021 22:44-0400 Body mass index (BMI) [Ratio] 32.3 kg/m2 Dr. Bernardino Moran Work Phone: [facility] Work Phone: 10-15-2021 15:54-0400 Body height 172.[address] Bernardino Moarn Work Phone: [facility] Work Phone: 10-15-2021 15:54-0400 Body mass index (BMI) [Ratio] 34.9 kg/m2 Dr. Bernardino Moran Work Phone: [facility] Work Phone: 10-15-2021 15:54-0400 Body temperature 98.8 [degF] Dr. Bernardino Moran Work Phone: [facility] Work Phone: 10-15-2021 15:54-0400 Body weight 104.[address] Bernardino Moran Work Phone: [facility] Work Phone: 10-15-2021 15:54-0400 Diastolic blood pressure 96 mm[Hg] Dr. Bernardino Moran Work Phone: [facility] Work Phone: 10-15-2021 15:54-0400 Heart rate 83 /min Dr. Bernardino Moran Work Phone: [facility] Work Phone: 10-15-2021 15:54-0400 Respiratory rate 16 /min Dr. Bernardino Moran Work Phone: [facility] Work Phone: 10-15-2021 15:54-0400 SaO2% (BldA) [Mass fraction] 91 % Dr. Bernardino Moran Work Phone: [facility] Work Phone: 10-15-2021 15:54-0400 Systolic blood pressure 127 mm[Hg] Dr. Bernardino Moran Work Phone: [facility] Work Phone: 08-03-2021 15:43-0500 Body mass index (BMI) [Ratio] 36.5 kg/m2 Dr. Bernardino Moran Work Phone: [facility] Work Phone: 08-03-2021 15:43-0500 Body temperature 97.3 [degF] Dr. Bernardino Moran Work Phone: [facility] Work Phone: 08-03-2021 15:43-0500 Body weight 105.[address] Bernardino Moran Work Phone: [facility] Work Phone: 08-03-2021 15:43-0500 Diastolic blood pressure 78 mm[Hg] Dr. Bernardino Moran Work Phone: [facility] Work Phone: 08-03-2021 15:43-0500 Heart rate 103 /min Dr. Bernardino Moran Work Phone: [facility] Work Phone: 08-03-2021 15:43-0500 Respiratory rate 15 /min Dr. Bernardino Moran Work Phone: [facility] Work Phone: 08-03-2021 15:43-0500 SaO2% (BldA) [Mass fraction] 91 % Dr. Bernardino Moran Work Phone: [facility] Work Phone: 08-03-2021 15:43-0500 Systolic blood pressure 116 mm[Hg] Dr. Bernardino Moran Work Phone: [facility] Work Phone: 07-22-2021 13:50-0500 Body temperature 98.2 [degF] Dr. Bernardino Moran Work Phone: [facility] Work Phone: 07-22-2021 13:50-0500 Diastolic blood pressure 92 mm[Hg] Dr. Bernardino Moran Work Phone: [facility] Work Phone: 07-22-2021 13:50-0500 Heart rate 96 /min Dr. Bernardino Moran Work Phone: [facility] Work Phone: 07-22-2021 13:50-0500 Respiratory rate 18 /min Dr. Bernardino Moran Work Phone: [facility] Work Phone: 07-22-2021 13:50-0500 SaO2% (BldA) [Mass fraction] 95 % Dr. Bernardino Moran Work Phone: [facility] Work Phone: 07-22-2021 13:50-0500 Systolic blood pressure 152 mm[Hg] Dr. Bernardino Moran Work Phone: [facility] Work Phone: 07-19-2021 12:27-0500 Body mass index (BMI) [Ratio] 38.9 kg/m2 Dr. Bernardino Moran Work Phone: [facility] Work Phone: 07-19-2021 12:27-0500 Body weight 112.[address] Bernardino Moran Work Phone: [facility] Work Phone: 08-26-2020 10:41-0400 BMI (Body Mass Index) 41.92 kg/m2 [employer] Work Phone: 08-26-2020 10:41-0400 Body weight 125.06 kg Janna [employer] Work Phone: 08-26-2020 10:41-0400 BP Diastolic 77 mm[Hg] Janna [employer] Work Phone: 08-26-2020 10:41-0400 BP Systolic 142 [...] Phone: 07-14-2020 12:37-0500 Body Temperature 98.2 [degF] [facility] [place] 07-14-2020 12:37-0500 BP Diastolic 79 mm[Hg] [facility] [place] 07-14-2020 12:37-0500 BP Systolic 124 mm[Hg] [facility] [place] 07-14-2020 12:37-0500 Pulse (Heart Rate) 84 /min [facility] [place] 07-14-2020 12:37-0500 Pulse Oximetry 98 % [facility] [place] 07-14-2020 12:37-0500 Respiratory Rate 18 /min [facility] [place] 07-06-2020 15:50-0500 BMI (Body Mass Index) 41.05 kg/m2 [facility] 07-06-2020 15:50-0500 Body weight 122.47 kg [facility] [place] 07-06-2020 15:50-0500 Height 172.7 cm [facility] [place] 10-26-2019 13:01-0400 Pulse Oximetry 97 % [facility] [place] 10-26-2019 09:40-0400 Respiratory Rate 16 /min [facility] [place] 10-26-2019 09:29-0400 Body Temperature 96.69 [degF] [facility] [place] 10-26-2019 09:29-0400 BP Diastolic 92 mm[Hg] [facility] 10-26-2019 09:29-0400 BP Systolic 128 mm[Hg] [facility] 10-26-2019 09:29-0400 Pulse (Heart Rate) 111 /min [facility] 10-24-2019 17:07-0400 BMI (Body Mass Index) 38.92 kg/m2 [facility] [place] 10-24-2019 17:07-0400 Body weight 116.[address] [facility] 10-24-2019 17:07-0400 Height 172.[address] [facility] 07-25-2019 11:50-0500 BP Diastolic 71 mm[Hg] [facility] 07-25-2019 11:50-0500 BP Systolic 108 mm[Hg] [facility] 07-25-2019 11:50-0500 Pulse (Heart Rate) 82 /min [facility] 07-25-2019 11:50-0500 Pulse Oximetry 99 % [facility] 07-25-2019 11:50-0500 Respiratory Rate 18 /min [facility] 07-25-2019 10:35-0500 BMI (Body Mass Index) 39.68 kg/m2 [facility] 07-25-2019 10:35-0500 Body Temperature 97.3 [degF] [facility] 07-25-2019 10:35-0500 Body weight 118.39 kg [place], [place] 07-25-2019 10:35-0500 Height 172.7 cm [facility] 03-08-2017 11:21-0400 Body Temperature 97.5 [degF] [facility] Work Phone: 03-08-2017 11:21-0400 BP Diastolic 82 mm[Hg] [facility] Work Phone: 03-08-2017 11:21-0400 BP Systolic 126 mm[Hg] [facility] Work Phone: 03-08-2017 11:21-0400 Pulse (Heart Rate) 16 /min [facility] Work Phone: 03-08-2017 11:21-0400 Respiratory Rate 16 /min [facility] Work Phone: Encounters Encounter Date Encounter Type Care Provider Facility Start: 04-13-2025 End: 04-13-2025 Emergency department patient visit Addison Chi Nick Facility:[facility] Start: 03-24-2025 ambulatory Addison Chi Nick [facility] Start: 02-26-2025 End: 02-26-2025 ambulatory Addison Chi Nick Facility:[facility] Start: 02-16-2025 End: 02-16-2025 ambulatory Addison Chi Nick Facility:[facility] Start: 02-16-2025 End: 02-16-2025 ambulatory Addison Chi Nick Facility:[facility] Start: 01-09-2025 ambulatory Chalon Clinton Facility:[facility] Start: 01-05-2025 End: 01-05-2025 Emergency department patient visit Addison Chi Nick Facility:[facility] Start: 12-11-2024 ambulatory Addison Chi Nick Facility:[facility] Start: 12-11-2024 ambulatory Addison Chi Nick Facility:[facility] Start: 12-08-2024 ambulatory Chalon Clinton Facility:[facility] Start: 12-04-2024 End: 12-04-2024 ambulatory Addison Chi Nick Facility:[facility] Start: 11-24-2024 End: 11-24-2024 ambulatory Chalon Clinton Facility:[facility] Start: 11-20-2024 End: 11-20-2024 ambulatory Chalon Clinton Facility:[facility] Start: 11-10-2024 ambulatory Chalon Clinton Facility:[facility] Start: 11-10-2024 End: 11-20-2024 Evaluation and management of inpatient Chalon Clinton Facility:[facility] Start: 11-10-2024 Dr. Blayne Santana DO -[facility] Work Phone: Start: 11-09-2024 Dr. Blayne Santana DO -[facility] Work Phone: Start: 11-08-2024 Dr. Blayne Santana DO -[facility] Work Phone: Start: 11-07-2024 End: 11-10-2024 Evaluation and management of inpatient Corin Mariscal MD Work Phone: [facility] Work Phone: Start: 11-07-2024 ambulatory Kaitlyn Winkler Facility:[facility] Start: 11-07-2024 End: 11-10-2024 Dr. Kaitlyn Winkler DO -[facility] Work Phone: Start: 11-06-2024 ambulatory Paramjitjagdish Clinton Facility:[facility] Start: 10-29[facility] Start: 10-21-2024 End: 10-21-2024 Dr. Corin Mariscal MD -Medical Out Work Phone: Start: 10-21-2024 End: 10-21-2024 ambulatory Corin Mariscal MD Work Phone: [facility] Work Phone: Start: 10-16-2024 End: 10-17-2024 [...] 10-14-2024 ambulatory Corin Mariscal MD Work Phone: [facility] Work Phone: Start: 10-07-2024 ambulatory Chalon Clinton Facility:[facility] Start: 09-30-2024 End: 09-30-2024 Dr. Jnuior Salter MD -Emergency Departmen t Work Phone: Start: 09-30-2024 End: 09-30-2024 Emergency department patient visit Junior Salter Facility:[facility] Start: 08-19-2024 End: 08-19-2024 ambulatory Corin Mariscal MD Work Phone: [facility] Work Phone: Start: 08-19-2024 End: 08-19-2024 Dr. Corin Mariscal MD -Laboratory, [facility] Start: 08-19-2024 End: 08-19-2024 ambulatory Chalon Clinton Facility:[facility] Start: 08-13-2024 Dr. Thong Sultana MD -[facility] Work Phone: Start: 08-13-2024 ambulatory Chalon Clinton [facility] Start: 08-12-2024 Dr. Vamsi Mendoza DO -[facility] Work Phone: Start: 08-11-2024 ambulatory Chalon Clinton [facility] Start: 08-11-2024 End: 08-13-2024 Evaluation and management of inpatient Chalon Clinton Facility:[facility] Start: 08-11-2024 End: 08-13-2024 Dr. Thong Sultana MD -Medical Surgical 3 Work Phone: Start: 08-11-2024 Dr. Beck Lee MD -[facility] Work Phone: Start: 08-10-2024 Dr. Beck Lee MD -[facility] Work Phone: Start: 08-09-2024 ambulatory [facility] Facility:[facility] Start: 08-09-2024 Evaluation and management of inpatient Dr. Mckenzie Austin MD -[facility] Surgical 3 Work Phone: Start: 08-09-2024 observation encounter Corin amezquita MD Work Phone: [facility] Work Phone: Start: 08-09-2024 Dr. Mckenzie Austin MD - [facility] Work Phone: Start: 07-24-2024 ambulatory [facility] Facility:[facility] Start: 07-24-2024 End: 07-24-[address] Corin Mariscal MD -Laboratory, [facility] Start: 07-24-2024 End: 07-24-2024 Dr. Corin Mariscal MD -Laboratory, [facility] Start: 07-24-2024 End: 07-24-2024 ambulatory [facility] Facility:[facility] Start: 07-17-2024 Non-patient / Non-visit Dr. Libby Sultana MD -[facility] Work Phone: Start: 07-17-2024 Dr. Thong Sultana MD -[facility] Work Phone: Start: 07-16-2024 Non-patient / Non-visit Dr. Libby Sultana MD -[facility] Work Phone: Start: 07-16-2024 Dr. Thong Sultana MD -[facility] Work Phone: Start: 07-15-2024 ambulatory [facility] Start: 07-15-2024 End: 07-17-2024 Evaluation and management of inpatient Dr. Thong Sultana MD -Medical Surgical 3 Work Phone: Start: 07-15-2024 End: 07-17-2024 Dr. Thong Sultana MD -Medical Surgical 3 Work Phone: Start: 07-13-2024 End: 07-13-2024 Dr. [facility] Start: 07-13-2024 End: 07-13-2024 Emergency department patient visit Dr. Kendall Dsouza MD -Emergency Department Work Phone: Start: 06-20-2024 End: 06-20-2024 ambulatory Willow Baez RN NURSE TAPE RECORDER MECHANIC Comment on above: Covid19 Concern Start: 10-18-2023 Refill Bernardino Moran MD Work Phone: [facility] Start: 08-18-2023 End: 08-19-2023 Emergency department patient visit Dr. Bernardino Moran Work Phone: [facility]-Emergency Department Work Phone: Start: 08-18-2023 End: 01-04-2025 Telephone encounter Eliazar Sanchez MD Work Phone: [facility] Clinical Communication Comment on above: page out Start: 08-17-[address] Damon Moran Work Phone: [facility] Start: 08-14-[address] Damon Moran Work Phone: [facility] Start: 08-09-2023 End: 08-09-2023 Evaluation and management of inpatient Leticia Hector APRN - SPRAY PAINTER Work Phone: [facility] MAIN [facility] Start: 08-09-2023 End: 08-13-2023 Evaluation and management of inpatient Brandon Bean MD Work Phone: [facility] Surgical Progressive Care Unit PCU H6 Comment [...] calories (HCC) Start: 08-02-2023 End: 08-02-[address] [facility] Start: 08-02-2023 End: 08-02-2023 Encounter for other preprocedural examination [facility] Start: 07-12-2023 End: 07-12-2023 Emergency department patient visit Dr. Bernardino Moran Work Phone: [facility]-Emergency Department Work Phone: Start: 07-06-2023 Telephone encounter Amy montoya MD Work Phone: [facility] Comment on above: FAST TACK Start: 07-05-2023 End: 07-05-2023 ambulatory JOSH Green CARO Facility:[facility] Start: 07-05-2023 End: 07-05-2023 Patient encounter procedure Annika Collado MD, PhD Work Phone: [facility] Comment on above: Radiculopathy of lum bar region (Primary Dx) Start: 06-29-2023 End: 06-29-[address] Bernardino Moran Work Phone: [facility]-P[facility] Medicine [facility] Work Phone: Start: 06-28-2023 Refill Yessi foreman LAND DEVELOPMENT MANAGER - SPRAY PAINTER Work Phone: [facility] Start: 06-18-2023 End: 06-18-[address] Bernardino Moran Work Phone: [facility] Work Phone: Start: 06-18-2023 End: 06-18-[address] Bernardino Moran Work Phone: [facility]-Laboratory, [place] Work Phone: Start: 05-06-2023 Refill Terri Garcia LAND DEVELOPMENT MANAGER - SPRAY PAINTER Work Phone: [facility] Start: 04-30-2023 End: 04-30-[address] Bernardino Moran Work Phone: [facility] Work Phone: Start: 04-30-2023 End: 04-30-[address] Bernardino Moran Work Phone: [facility]-Sleep Lab Work Phone: Start: 04-14-2023 Giselle Moran MD Work Phone: [facility] Start: 03-21-2023 End: 03-21-[address] Bernardino Moran Work Phone: [facility] Work Phone: Start: 03-21-2023 End: 03-21-[address] Bernardino Moran Work Phone: [facility]-Sleep Lab Work Phone: Start: 03-21-2023 Non-patient / Non-visit Dr. Cerna Work Phone: [facility] Start: 03-20-2023 End: 03-20-[address] Bernardino Moran Work Phone: [facility]-Pulmonary Services/Neurology Work Phone: Start: 03-18-2023 Giselle Moran MD Work Phone: [facility] Start: 03-15-2023 Non-patient / Non-visit Dr. Cerna Work Phone: [facility] Start: 03-15-2023 End: 03-15-[address] Bernardino Moran Work Phone: [facility]-Pulmonary Services/Neurology Work Phone: Start: 03-13-2023 Refill Bernardino Moran MD Work Phone: [facility] Start: 03-09-2023 Refill Bernardino Moran MD Work Phone: [facility] Start: 03-05-2023 End: 03-05-[address] Bernardino Moran Work Phone: [facility] Work Phone: Start: 02-27-[address] Denny Moran Work Phone: [facility]-Physical Therapy Work Phone: Start: 02-18-2023 Refill Bernardino Moran MD Work Phone: [facility] Start: 02-15-2023 End: 02-15-2023 ambulatory BERNARDINO MORAN [facility] Start: 02-15-2023 End: 02-15-2023 Office outpatient visit 25 minutes Bernardino Moran MD Work Phone: [facility] Comment on above: Chronic insomnia (Pr imary Dx); Morbid (severe) obesity due to excess calories (HCC); Chronic hypoxemic respiratory failure (CMS/HCC) (HCC); Other pancytopenia (CMS/HCC) (HCC); Essential hypertension; Gastroesophageal reflux disease without esophagitis; Current moderate episode of major depressive disorder without prior episode (HCC); Anxiety; Pure hypercholesterolemia; Ataxia; Weakness of both lower extremities Start: 01-04-2023 End: 01-04-2023 Emergency department patient visit Dr. Bernadrino Moran Work Phone: [facility]-Emergency Department Work Phone: Start: 01-04-2023 End: 01-04-[address] Bernardino Moran Work Phone: [facility] Work Phone: Start: 12-25-2022 End: 12-25-2022 ambulatory BERNARDINO MORAN [facility] Start: 12-15-2022 Refill Terri Garcia APRN - SPRAY PAINTER Work Phone: [facility] Start: 11-27-2022 Refill Bernardino Moran MD Work Phone: [facility] Start: 11-17-2022 Refill Bernardino Moran MD Work Phone: [facility] Comment on above: Chronic hypoxemic re spiratory failure (CMS/HCC) (HCC) Start: 09-22-2022 Refill Bernardino Moran MD Work Phone: [facility] Start: 08-29-2022 End: 08-29-2022 Office outpatient visit 25 minutes Bernardino Moran MD Work Phone: [facility] Comment on above: Recurrent major depr essive disorder, in partial remission (HCC) (Primary Dx); Chronic insomnia; Forgetfulness; Anxiety Start: 08-18-2022 Telephone encounter Bernardino Monzon MD Work Phone: [facility] Comment on above: Med Refill Start: 08-15-2022 ambulatory [facility] Start: 08-15-2022 Patient encounter procedure [facility] Start: 07-16-2022 Non-patient / Non-visit Dr. Cerna Work Phone: [facility] Start: 07-16-2022 Evaluation and management of inpatient Dr. Bernardino Moran Work Phone: [facility]-Medical Surgical 3 Start: 07-04-2022 Giselle Moran MD Work Phone: [facility] Start: 06-23-2022 End: 06-23-[address] Bernardino Moran Work Phone: [facility] Work Phone: Start: 06-23-2022 End: 06-23-[address] Bernardino Moran Work Phone: [facility]-Outpatient Breast Imaging Start: 06-07-2022 End: 06-07-2022 Patient encounter procedure Bernardino Moran MD Work Phone: [facility] Comment on above: Essential hypertensi on (Primary [...] of breast Start: 06-02-2022 Refill Terri Garcia LAND DEVELOPMENT MANAGER - SPRAY PAINTER Work Phone: [facility] Start: 04-19-2022 End: 04-19-[address] Bernardino Moran Work Phone: [facility] Start: 04-17-2022 End: 04-17-[address] Bernardino Moran Work Phone: [facility] Start: 03-15-2022 End: 03-15-2022 Emergency department patient visit Dr. Bernardino Moran Work Phone: [facility]-Emergency Department Start: 12-31-2021 Non-patient / Non-visit Dr. Cerna Work Phone: [facility] Start: 12-30-2021 Non-patient / Non-visit Dr. Cerna Work Phone: [facility] Start: 12-29-2021 End: 12-31-2021 Evaluation and management of inpatient Dr. Bernardino Moran Work Phone: [facility]-Progressive Care Unit Start: 12-29-2021 Non-patient / Non-visit Dr. Cerna Work Phone: [facility] Start: 10-15-2021 End: 10-15-2021 Emergency department patient visit Dr. Bernardino Moran Work Phone: [facility]-Emergency Department Start: 08-03-2021 End: 08-03-2021 Emergency department patient visit Dr. Bernardino Moran Work Phone: [facility]-Emergency Department Start: 08-03-2021 End: 08-03-[address] Bernardino Moran Work Phone: [facility]-Cardiovascula r Services Start: 07-22-2021 Non-patient / Non-visit Dr. Cerna Work Phone: [facility] Start: 07-21-2021 Non-patient / Non-visit Dr. Cerna Work Phone: [facility] Start: 07-20-2021 Non-patient / Non-visit Dr. Cerna Work Phone: [facility] Start: 07-19-2021 Non-patient / Non-visit Dr. Cerna Work Phone: [facility] Start: 07-18-2021 Non-patient / Non-visit Dr. Cerna Work Phone: [facility] Start: 07-17-2021 Non-patient / Non-visit Dr. Cerna Work Phone: [facility] Start: 07-17-2021 End: 07-22-2021 Evaluation and management of inpatient Dr. Bernardino Moran Work Phone: [facility]-Medical Surgical 3 Start: 04-24-2021 End: 05-05-2021 Evaluation and management of inpatient VITALY SALOMON Facility:[facility] Start: 04-10-2021 End: 04-20-2021 Evaluation and management of inpatient BERNARDINO MORAN Facility:[facility] Start: 08-24-2020 End: 08-26-2020 Evaluation and management of inpatient Janna Medina [facility] Comment on above: Alcohol withdrawal s yndrome with complication (HCC) (Primary Dx) Start: 07-06-2020 Patient encounter procedure Bernardino Moran Work Phone: [facility] Comment on above: Other (crisis) Start: 06-29-2020 Refill Bernardino Moran Work Phone: [facility] Comment on above: Medication Refill Start: 06-18-2020 Refill Terri Garcia Work Phone: [facility] Comment on above: Medication Refill Start: 06-14-2020 End: 06-14-2020 Office outpatient visit 15 minutes Bernardino Moran Work Phone: [facility] Comment on above: Anxiety (Primary Dx) ; Current moderate episode of major depressive disorder without prior episode (HCC); Other emphysema (HCC); Morbidly obese (HCC) Start: 06-09-2020 Telephone encounter Caprice gallagher Work Phone: [facility] Comment on above: Other ([facility] Referral) Start: 06-08-2020 Telephone encounter Bernardino Monzon Work Phone: [facility] Comment on above: Other (Referral to [facility] Elias) Start: 06-07-2020 Refill Bernardino Moran Work Phone: [facility] Comment on above: Medication Refill Start: 05-31-2020 Subsequent hospital visit by physician Bernardino Weiss Dean Work Phone: [facility] Comment on above: No Show Start: 05-24-2020 Telephone encounter Bernardino Monzon Work Phone: [facility] Comment on above: Other (Lab request) Start: 05-21-2020 Refill Bernardino Moran Work Phone: [facility] Comment on above: Medication Refill Start: 05-20-2020 Telephone encounter Bernardino Monzon Work Phone: [facility] Comment on above: Other (pulmonary silvia ointment) Start: 05-14-2020 Refill Bernardino Moran Work Phone: [facility] Comment on above: Medication Refill Start: 05-10-2020 End: 05-10-2020 Office outpatient visit 25 minutes Bernardino Moran Work Phone: [facility] Comment on above: Depressive disorder (Primary Dx); Anxiety Start: 05-09-2020 Refill Bernardino Moran Work Phone: [facility] Comment on above: Medication Refill Start: 05-07-2020 Patient encounter procedure Yary Pedraza [facility] Clinical Communication Start: 05-03-2020 Telephone encounter Bernardino Monzon Work Phone: [facility] Comment on above: Other (medication do jens) Start: 04-21-2020 Refill Bernardino Moran Work Phone: [facility] Comment on above: Medication Refill Start: 04-16-2020 Telephone encounter Caprice gallagher Work Phone: [facility] Comment on above: Other ([facility] Referral) Start: 04-14-2020 Telephone encounter Bernardino Monzon Work Phone: [facility] Comment on above: Discuss Labs Start: 04-13-2020 Patient encounter procedure Bernardino Moran [facility] [place] [place] Start: 04-13-2020 End: 04-13-2020 Office outpatient visit 25 minutes Bernardino Moran Work Phone: [facility] Comment on above: Current moderate epi sode [...] Start: 05-13-2018 Patient encounter procedure PREM TAM Facility:[facility] Procedures Date Procedure Procedure Detail Performing Clinician [...] Work Phone: Start: 11-07-2024 Urine opiate measurement Corin Mariscal MD Work Phone: Start: 11-07-2024 Urnls [...] microscopy Corin Mariscal MD Work Phone: Start: 08-09-2024 Assay [...] 08-13-2023 Pulmonary ventilatio n & perfusion imaging Apolianr Yin MD Work Phone: Start: 08-12-2023 Dup-scan [...] ETHYL GLUCURONIDE SC REEN, URINE Brooke Gigicolton LAND DEVELOPMENT MANAGER - SPRAY PAINTER Work Phone: Start: 08-10-2023 MEDICATION ASSISTED TREATMENT PANEL Brooke Yucolton LAND DEVELOPMENT MANAGER - SPRAY PAINTER Work Phone: Start: 08-10-2023 Urnls dip stick/tabl et reagent auto microscopy Apolinar Yin MD Work Phone: Start: 08-10-2023 Basic metabolic pane l calcium total Caroline Downey MD Work Phone: Start: 08-10-2023 Drug test def 1-7 classes Brookeezequiel Yucolton LAND DEVELOPMENT MANAGER - SPRAY PAINTER Work Phone: Start: 08-09-2023 FL GUIDANCE OR USE O NLY - NON-RESULTABLE Brandon Bean MD Work Phone: Start: 08-09-2023 End: 08-09-2023 Removal posterior segmental instrumentation Brandon Bean MD Work Phone: Start: 08-02-2023 Antibody screen BERNARDINO MORAN Comment on above: Performed By: #### L [id number] ####Clarifier: RADHA NOGUEIRA ([id number])[facility] ([facility])[address] [place] [address] Start: 07-12-2023 CT of abdomen and pe lvis without contrast Dr. Bernardino Moran Work Phone: Start: 06-18-2023 Lipid 1996 panel - S torsten or Plasma Yessi Silver LAND DEVELOPMENT MANAGER - SPRAY PAINTER Work Phone: Start: 07-16-2022 Plain chest X-ray [...] - S torsten or Plasma Terri Garcia LAND DEVELOPMENT MANAGER - SPRAY PAINTER Work Phone: Start: 08-26-2020 Assay of magnesium [...] Performed By: #### E SR, CRP2 #### [facility] [address] [place] [address] #### IGA #### [facility] [address] [place] [address] #### TTGA2, EMABO #### The performing lab is in the report. Start: 10-26-2019 Assay of magnesium Dominic Cohen Work Phone: Start: 10-26-2019 Basic metabolic pane l calcium total Annika Cohen Work Phone: Start: 10-26-2019 Blood count complete auto&auto difrntl wbc Annika Cohen Work Phone: Start: 10-25-2019 Iaad ia mult step me thod nos each organism [facility] Work Phone: Start: 10-25-2019 STREP PNEUMONIAE ANTIGEN [facility] Work Phone: Start: 10-25-2019 Iadna respiratry pro be & rev trnscr 12-25 target [facility] Work Phone: Start: 10-25-2019 Dup-scan xtr veins complete bilateral study [facility] Work Phone: Start: 10-25-2019 Smr prim src gram/gi emsa stain bct fungi/cell [facility] Work Phone: Start: 10-25-2019 Echo tthrc r-t 2d w/wom-mode compl spec&colr d [facility] Work Phone: Start: 10-25-2019 Blood count complete auto&auto difrntl wbc [facility] Work Phone: Start: 10-25-2019 MANUAL DIFFERENTIAL [facility] Work Phone: Start: 10-24-2019 Assay of troponin quantitative [facility] Work Phone: Start: 10-24-2019 Ct angiography chest [...] det nuclei c acid clostridium amp probe [facility] Work Phone: Start: 02-14-2019 Assay of gammaglobul in iga igd igg igm each [facility] Work Phone: Start: 02-14-2019 C-reactive protein Arju n [facility] Work Phone: Start: 02-14-2019 Sedimentation rate r bc automated [facility] Work Phone: Start: 02-13-2019 Iadna-dna/rna gi pth gn multiplex probe tq 12-25 [facility] Work Phone: Start: 02-13-2019 Inf agent det nuclei c acid clostridium amp probe [facility] Work Phone: Start: 01-08-2019 Colonoscopy Bernardino [...] cancer screen colonoscopy Colon cancer screen colonoscopy [facility] [place] Start: 01-08-2029 Screening for malignant neoplasm of colon [facility] Start: 06-18-2028 Lipid panel [facility] Start: 06-07-2027 Lipid panel [facility] Start: 2026 Pneumococcal vaccination Pneumococcal Vaccine (3 of 3 - PPSV23 or PCV20) [facility] Start: 2026 Pneumococcal Vaccine: Pediatrics (0 to 5 Years) and At-Risk Patients (6 to 64 Years) (3 - PPSV23 if available, else PCV20) Pneumococcal Vaccine: Pediatrics (0 to 5 Years) and At-Risk Patients (6 to 64 Years) (3 - PPSV23 if available, else PCV20) [facility] Start: 2026 Pneumococcal Vaccine: Pediatrics (0 to 5 Years) and At-Risk Patients (6 to 64 Years) (3 - PPSV23 or PCV20) Pneumococcal Vaccine: Pediatrics (0 to 5 Years) and At-Risk Patients (6 to 64 Years) (3 - PPSV23 or PCV20) [facility] Start: 2026 Pneumococcal Vaccine: Pediatrics (0 to 5 Years) and At-Risk Patients (6 to 64 Years) (3 of 3 - PPSV23 or PCV20) Pneumococcal Vaccine: Pediatrics (0 to 5 Years) and At-Risk Patients (6 to 64 Years) (3 of 3 - PPSV23 or PCV20) [facility] Start: 08-11-2026 Diabetes Screening Diabetes Screening [facility] Start: 08-01-2026 Diabetes mellitus screening Diabetes Screening [facility] Start: 11-26-2025 Lipid panel Lipid Panel [facility] Start: 06-07-2025 Diabetes Screening Diabetes Screening [facility] Start: 02-02-2025 Influenza vaccination [facility] Start: 11-10-[address] [facility] Start: 11-10-2024 End: 11-10-2024 ambulatory 11/10/2024 9:50 AM EDT Visit (SP) Office Hematology/Oncology [address] [place], [place] [id number] Jose Dennison DO [address] [place] [address] OV/LABS EARLY* Hematology/Oncolog y Comment on above: OV/LABS EARLY* Start: 11-07-2024 Following clinical pathway protocol [facility] Start: 11-07-2024 Assessment of risk of venous thromboembolism [facility] Start: 11-07-2024 Insertion of catheter into peripheral vein [facility] Start: 11-07-2024 Measuring intake and output [facility] Start: 11-07-[address] [facility] Start: 11-07-2024 Providing care according to standard [facility] Start: 11-07-2024 Provision of activity privileges [facility] Start: 11-07-2024 Referral to occupational therapist [facility] Start: 11-07-[address] [facility] Start: 11-07-[address] [facility] Start: 11-07-[address] [facility] Start: 11-07-2024 Hospital admission, emergency, from emergency room, medical nature [facility] Start: 11-07-[address] [facility] Start: 11-07-2024 End: 11-07-2024 [facility] Start: 11-07-2024 Patient referral to dietitian [facility] Start: 10-31-2024 End: 10-31-2024 ambulatory [facility] Comment on above: CBC/IRON STUDIES* CBC/IRON STUDIES/MMA * Start: 10-21-2024 Iv infusion therapy prophylaxis/dx ea hour [facility] Start: 10-21-2024 Iv infusion therapy/prophylaxis /dx 1st to [address] [facility] Start: 10-16-2024 End: 01-15-2025 Methylmalonate [Moles/volume] in Serum or Plasma METHYLMALONIC ACID Lab Routine Low vitamin B12 level Expected: 10/16/2024, Expires: 01/15/2025 [facility] Work Phone: Comment on above: Expected: 10/16/2024, Expires: Start: 10-15-2024 End: 01-14-2025 Cobalamin (Vitamin B12) [Mass/volume] in Serum or Plasma [facility] Work Phone: Comment on above: Expected: 10/15/2024, Expires: Start: 10-15-2024 End: 01-14-2025 COPPER BLOOD [facility] Comment on above: Expected: 10/15/2024, Expires: Start: 10-15-2024 End: 01-14-2025 Folate [Mass/volume] in Serum or Plasma [facility] Comment on above: Expected: 10/15/2024, Expires: 5 Start: 10-14-2024 Iv infusion therapy prophylaxis/dx ea hour [facility] Start: 10-14-2024 Iv infusion therapy/prophylaxis /dx 1st to [address] [facility] Start: 09-30-2024 [facility] Start: 09-30-[address] [facility] Start: 08-13-2024 Patient discharge [facility] Start: 08-11-[address] [facility] Start: 08-11-2024 Creatinine measurement Creatinine Level [facility] Start: 08-11-2024 Potassium measurement Potassium Level [facility] Start: 08-11-2024 Patient referral to dietitian [facility] Start: 08-10-2024 End: 08-11-2024 [facility] Start: 08-10-2024 Telemedicine consultation with patient [facility] Start: 08-10-[address] [facility] Start: 08-09-2024 Following clinical pathway protocol [facility] Start: 08-09-2024 Assessment of risk of venous thromboembolism [facility] Start: 08-09-2024 Care regimes management [facility] Start: 08-09-2024 Insertion of catheter into peripheral vein [facility] Start: 08-09-2024 Introduction of urinary catheter [facility] Start: 08-09-2024 Measuring intake and output [facility] Start: 08-09-[address] [facility] Start: 08-09-[address] [facility] Start: 08-09-2024 Providing care according to standard [facility] Start: 08-09-2024 Provision of activity privileges [facility] Start: 08-09-[address] [facility] Start: 08-09-2024 End: 08-09-2024 [facility] Start: 08-09-[address] [facility] Start: 08-09-2024 Hospital admission, emergency, from emergency room, medical nature [facility] Start: 08-09-2024 End: 08-10-2024 [facility] Start: 08-09-2024 Bacteria identified in Blood by Culture Blood Culture [facility] Start: 08-09-2024 Bacteria identified in Urine by Culture Urine Culture [facility] Start: 07-17-[address] [facility] Start: 07-16-2024 Care planning and problem solving actions [facility] Start: 07-16-2024 Application of intermittent pneumatic compression device [facility] Start: 07-16-[address] [facility] Start: 07-15-2024 Following clinical pathway protocol [facility] Start: 07-15-2024 Assessment of risk of venous thromboembolism [facility] Start: 07-15-[address] [facility] Start: 07-15-2024 Insertion of catheter into peripheral vein [facility] Start: 07-15-2024 Measuring intake and output [facility] Start: 07-15-[address] [facility] Start: 07-15-2024 Providing care according to standard [facility] Start: 07-15-2024 Provision of activity privileges [facility] Start: 07-15-2024 Referral to occupational therapist [facility] Start: 07-15-[address] [facility] Start: 07-15-[address] [facility] Start: 07-15-2024 [facility] Start: 07-15-2024 Dual pressure spontaneous ventilation support [facility] Start: 07-15-[address] [facility] Start: 07-15-2024 Patient referral to dietitian [facility] Start: 07-13-2024 [facility] Start: 07-13-2024 Emergency department visit low/moder severity [facility] Start: 07-13-2024 Iv infusion hydration each additional hour [facility] Start: 07-13-2024 Ther proph/dx njx iv push single/1st sbst/drug [facility] Start: 07-13-2024 Therapeutic injection iv push each new drug [facility] Start: 06-04-2024 Medicare Advantage Annual Wellness Visit Medicare Advantage Annual Wellness Visit [facility] Start: 02-03-2024 Covid-19 Vaccine ( season) Covid-19 Vaccine () [facility] Start: 02-03-2024 Influenza vaccination [facility] Start: 08-18-2023 [facility] Start: 07-29-2023 DTaP/Tdap/Td vaccine (2 - Td) DTaP/Tdap/Td vaccine (2 - Td) [place] Start: 07-29-2023 DTaP/Tdap/Td Vaccines (2 - Td or Tdap) DTaP/Tdap/Td Vaccines (2 - Td or Tdap) [facility] Start: 07-29-2023 Urine microalbumin profile DTaP,Tdap,Td Vaccine (2 - Td or Tdap) [facility] Start: 07-12-2023 [facility] Start: 07-12-2023 [facility] Start: 07-07-2023 Medicare Advantage Annual Wellness Visit (AWV) Medicare Advantage Annual Wellness Visit (AWV) [facility] Start: 06-29-[address] [facility] Work Phone: Start: 06-27-2023 Depression Monitoring Depression Monitoring [facility] Start: 06-27-2023 Depresssion Monitoring Depresssion Monitoring [facility] Start: 06-23-2023 Screening for malignant neoplasm of breast Mammogram [facility] Start: 06-13-2023 End: 06-13-2023 Patient encounter procedure [facility] Start: 06-04-2023 Medicare Advantage Annual Wellness Visit Medicare Advantage Annual Wellness Visit [facility] Start: 02-28-2023 Depresssion Monitoring Depresssion Monitoring [facility] Start: 02-02-2023 COVID-19 Vaccine ( season) COVID-19 Vaccine () [facility] Start: 02-02-2023 Influenza vaccination [facility] Start: 12-25-2022 End: 12-25-2022 Telemedicine consultation with patient 12/25/2022 2:00 PM EDT Telemedicine [facility] [address] [place] [address] [place] [address] Bernardino Moran MD [address] [place] [address] [facility] Start: 12-13-2022 End: 12-13-2022 Patient encounter procedure [facility] Start: 12-03-2022 Lipid screen Lipid screen [facility] [place] Start: 08-29-2022 End: 08-29-2022 Patient encounter procedure 08/29/2022 Office Visit Family Medicine Bernardino Moran MD [address] [place] [address] [facility] Start: 07-16-2022 Dual pressure spontaneous ventilation support [facility] Start: 07-16-[address] [facility] Start: 07-16-2022 [facility] Start: 07-16-[address] [facility] Start: 07-16-2022 Streptococcus pneumoniae antigen assay [facility] Start: 07-16-2022 End: 07-16-2022 Viral nucleic acid assay [facility] Start: 07-16-2022 End: 07-16-2022 [facility] Start: 07-16-[address] [facility] Start: 06-07-2022 End: 06-07-2023 aPTT in Blood by Coagulation assay APTT Lab Routine Hematoma (nontraumatic) of breast Expected: 06/07/2022 (Approximate), Expires: 06/07/2023 [facility] [place] Comment on above: Expected: 06/07/2022 (Approximate), Expi res: 06/07/2023 Start: 06-07-2022 End: 06-07-2023 CBC W Auto Differential panel - Blood CBC auto differential Lab Routine Hematoma (nontraumatic) of breast Expected: 06/07/2022 (Approximate), Expires: 06/07/2023 [facility] Comment on above: Expected: 06/07/2022 (Approximate), Expi res: 06/07/2023 Start: 06-07-2022 End: 06-02-2023 Comprehensive metabolic 1998 panel - Serum or Plasma Comprehensive metabolic panel Lab Routine Stage 1 chronic kidney disease Screening for diabetes mellitus Expected: 06/07/2022 (Approximate), Expires: 06/02/[address] [facility] Comment on above: Expected: 06/07/2022 (Approximate), Expi res: 06/02/2023 Start: 06-07-2022 End: 06-02-2023 Lipid 1996 panel - Serum or Plasma Lipid panel Lab Routine Pure hypercholesterolemia Expected: 06/07/2022 (Approximate), Expires: 06/02/[address] [facility] Work Phone: Comment on above: Expected: 06/07/2022 (Approximate), Expi res: 06/02/2023 Start: 06-07-2022 End: 06-07-2023 Prothrombin time (PT) in Blood by Coagulation assay Protime-INR Lab Routine Hematoma (nontraumatic) of breast Expected: 06/07/2022 (Approximate), Expires: 06/07/[address] [facility] Comment on above: Expected: 06/07/2022 (Approximate), Expi res: 06/07/2023 Start: 06-07-2022 End: 06-07-2022 Patient encounter procedure 06/07/2022 Office Visit Family Medicine Bernardino Moran MD [address] [place] [address], [place] [address] [facility] Start: 04-17-[address] [facility] Work Phone: Start: 03-15-2022 [facility] Work Phone: Start: 02-02-2022 Influenza vaccination Influenza Vaccine (#1) [facility] Start: 12-31-[address] [facility] Work Phone: Start: 12-29-2021 Following clinical pathway protocol [facility] Work Phone: Start: 12-29-2021 Application of intermittent pneumatic compression device [facility] Work Phone: Start: 12-29-2021 Assessment of risk of venous thromboembolism [facility] Work Phone: Start: 12-29-[address] [facility] Work Phone: Start: 12-29-[address] [facility] Work Phone: Start: 12-29-[address] [facility] Work Phone: Start: 12-29-2021 Insertion of catheter into peripheral vein [facility] Work Phone: Start: 12-29-2021 Introduction of urinary catheter [facility] Work Phone: Start: 12-29-2021 Measuring intake and output [facility] Work Phone: Start: 12-29-[address] [facility] Work Phone: Start: 12-29-2021 Providing care according to standard [facility] Work Phone: Start: 12-29-2021 Provision of activity privileges [facility] Work Phone: Start: 12-29-2021 Referral to occupational therapist [facility] Work Phone: Start: 12-29-[address] [facility] Work Phone: Start: 12-29-2021 [facility] Work Phone: Start: 12-29-2021 Dual pressure spontaneous ventilation support [facility] Work Phone: Start: 12-29-[address] [facility] Work Phone: Start: 12-29-2021 [facility] Work Phone: Start: 2021 RSV Immunization aged 60 or older (1 - 1-dose 60+ series) RSV Immunization aged 60 or older (1 - 1-dose 60+ series) [facility] Start: 2021 RSV Immunization for Adults (1 - Risk 60-74 years 1-dose series) RSV Immunization for Adults (1 - Risk 60-74 years 1-dose series) [facility] Start: 2021 RSV Vaccine (1 - 1-dose 60+ series) RSV Vaccine (1 - 1-dose 60+ series) [facility] Start: 2021 RSV Vaccine (1 - Risk 60-74 years 1-dose series) RSV Vaccine (1 - Risk 60-74 years 1-dose series) [facility] Start: 08-26-2021 Creatinine measurement Creat[facility] monitoring [facility] Work [facility] Start: 08-26-2021 Potassium monitoring Potassium monitoring [facility] Work Phone: Start: 08-09-2021 COVID-19 Vaccine (3 - Booster for Pfizer series) COVID-19 Vaccine (3 - Booster for Pfizer series) [facility] Start: 08-09-2021 COVID-19 Vaccine (3 - Pfizer series) COVID-19 Vaccine (3 - Pfizer series) [facility] Start: 07-06-2021 Creatinine measurement Creatinine monitoring [employer] Start: 07-06-2021 Potassium monitoring Potassium monitoring [facility] Start: 04-13-2021 Lipid panel [facility] screen [facility] [place] [place] Start: 04-12-2021 Hepatitis C screening Hepatitis C screen [place], [place] Comment on above: Postponed from 1961 (Patient Refus ed) Start: 04-12-2021 HIV screening HIV screen [facility] [place] Comment on above: Postponed from 1976 (Patient Refus ed) Start: 04-12-2021 Shingles Vaccine (1 of 2) Shingles Vaccine (1 of 2) [facility] [place] Comment on above: Postponed from 12/03/2011 (Patient Refus ed) Start: 10-25-2020 Creatinine measurement Creatinine monitoring [facility], [place] Start: 10-25-2020 Potassium monitoring Potassium monitoring [facility] [place] Start: 09-02-2020 End: 09-02-2020 Office Visit 09/02/2020 Office Visit Family Medicine Bernardino Moran MD [address], [place] [address] [phone] [facility] Start: 07-02-2020 [facility]id panel [facility] Start: 07-02-2020 Lipid screen [facility]id screen [facility] Start: 04-03-2020 Creatinine monitoring Creatinine monitoring [facility] [place] Start: 04-03-2020 Potassium monitoring Potassium monitoring [facility] Start: 01-21-2020 Creatinine monitoring Creatinine monitoring [facility] , [place] Start: 01-21-2020 Potassium monitoring Potassium monitoring [facility] [place]OW Start: 12-31-2019 End: 12-31-2019 Office Visit 12/31/2019 Office Visit Family Medicine Terri Garcia, LAND DEVELOPMENT MANAGER - SPRAY PAINTER [address] [place] [address] [phone] [facility] Start: 12-17-2019 [facility] C [facility] from [facility] (Patient Refus ed) Start: 12-17-2019 Hepatitis C screening [facility] on above: Postp[facility] from 1961 (Patient Refus ed) Start: 12-17-2019 [facility] Comment on above: Postponed from 1976 (Patient Refus ed) Start: 12-17-2019 [facility] Comment on above: Postponed from 1976 (Patient Refus ed) Start: 07-16-2019 Breast cancer screen Breast cancer screen [facility] [place] Comment on above: Postponed from 12/03/2011 (Patient Refus ed) Start: 04-12-2019 Shingles Vaccine (1 of 2) Shingles Vaccine (1 of 2) [facility] Comment on above: Postponed from 12/03/2011 (Patient Refus ed) Start: 02-02-2019 Influenza vaccination Flu vaccine (#1) [facility] Start: 12-03-2018 [facility] Start: 09-19-2018 Screening for malignant neoplasm of colon Fecal Occult Blood [facility] Start: 09-20-2017 Screening for malignant neoplasm of colon Colorectal Cancer Screening [facility] Start: 03-08-2017 End: 03-08-2017 Radex hip unilateral with pelvis 2-3 views X-Ray, Hip, unilateral, with pelvis; 2-3 views [facility] Work Phone: Start: 03-08-2017 End: 03-08-2017 Radex spine cervical 2 or 3 views X-Ray, Spine, Cervical 2-3 views [facility] Work Phone: Start: 03-08-2017 End: 03-08-2017 Radex spine lumbosacral minimum 4 views X-Ray, Spine, Lumbosacral 4 views [facility] Work Phone: Start: 03-08-2017 End: 03-08-2017 Appointment [facility] Work Phone: Start: 09-08-2016 Pneumococcal Vaccine: 50+ (3 of 3 - PCV20 or PCV21) Pneumococcal Vaccine: 50+ (3 of 3 - PCV20 or PCV21) [facility] Start: 09-08-2016 Pneumococcal Vaccine: 50+ Years (3 of 3 - PCV20 or PCV21) Pneumococcal Vaccine: 50+ Years (3 of 3 - PCV20 or PCV21) [facility] Start: 09-08-2016 Pneumococcal Vaccine: Pediatrics (0 to 5 Years) and At-Risk Patients (6 to 64 Years) (3 - PPSV23 if available, else PCV20) Pneumococcal Vaccine: Pediatrics (0 to 5 Years) and At-Risk Patients (6 to 64 Years) (3 - PPSV23 if available, else PCV20) [facility] Start: 12-03-2011 Breast cancer screen Breast cancer screen [place], [place] Start: 12-03-2011 Screening for malignant neoplasm of breast Breast cancer screen [place], [place] Start: 12-03-2011 Shingles Vaccine (1 of 2) Shingles Vaccine (1 of 2) [place] Start: 12-03-2011 Shingrix Vaccine (1 of 2) Shingrix Vaccine (1 of 2) [facility] Start: 12-03-2011 Zoster Vaccines (1 of 2) Zoster Vaccines (1 of 2) [facility] Start: 06-04-2011 Screening for malignant neoplasm of breast Mammogram Screening [facility] Start: 09-15-2010 Screening for malignant neoplasm of colon Colonoscopy [facility] Start: 2006 Screening for malignant neoplasm of colon [facility] Start: 2001 Diabetes screen [facility] [place] [place] Start: 2001 Screening for malignant neoplasm of breast Mammogram [facility] Start: 1980 Hepatitis A Vaccines (1 of 2 - Risk 2-dose series) Hepatitis A Vaccines (1 of 2 - Risk 2-dose series) [facility] Start: 1980 Zoster Vaccines (1 of 2) Zoster Vaccines (1 of 2) [facility] Start: 12-03-1979 Annual PCP Team Chronic Disease Visit Annual PCP Team Chronic Disease Visit [facility] Start: 12-03-1979 Diabetes mellitus screening Diabetes Screening [facility] Start: 12-03-1979 Hepatitis C screening Hepatitis C Screening [facility] Start: 1977 COVID-19 Vaccine (1) COVID-19 Vaccine (1) [facility] Work Phone: Start: 1962 Hepatitis A Vaccines (1 of 2 - Risk 2-dose series) Hepatitis A Vaccines (1 of 2 - Risk 2-dose series) [facility] Start: 1962 MMR Vaccines (1 of 1 - Standard series) MMR Vaccines (1 of 1 - Standard series) [facility] Start: 1961 Echocardiography Echocardiogram [facility] Start: 1961 Hepatitis B Vaccines (1 of 3 - 3-dose series) Hepatitis B Vaccines (1 of 3 - 3-dose series) [facility] Start: 1961 HIV screening HIV Screening [facility] Start: 1961 Medicare Advantage Annual Wellness Visit (AWV) Medicare Advantage Annual Wellness Visit (AWV) [facility] Start: 1961 Screening for malignant neoplasm of colon [facility] [employer] [facility] [place] [place] Comment on above: QHS until discontinued starting 10/25/19 20 QHS until discontinu ed starting 08/24/2020 Bacteria identified in Urine by Culture Urine Culture [facility] Work Phone: End: 08-31-2020 Basic Metabolic Panel w/ Reflex to MG Basic Metabolic Panel w/ Reflex to MG Lab Routine Tomorrow AM for 7 Occurrences starting 08/25/2020 until 08/31/2020, 2 completed [facility] Work Phone: Comment on above: Tomorrow AM for 7 Occurrences starting 0 08/25/2020 until 08/31/2020, 2 completed Bilirubin measuremen t, urine [facility] End: 07-25-2019 Blood glucose - POCT Blood glucose - POCT Point of Care Testing Routine One Time for 1 Occurrences starting 07/25/2019 until 07/25/2019 [facility] on above: One Time for 1 Occurrences starting 07/06 until 07/25/2019 End: 02-14-2019 Calprotectin Stool Calprotectin Stool Lab Routine Once for 1 Occurrences starting 02/14/2019 until 02/14/2019 [facility] [place] Comment on above: Once for 1 Occurrences starting 02/15/20 until 02/14/2019 Calprotectin Stool Calprotectin Stool Lab Routine 02/13/2019 8:00 PM EDT [facility] [place] End: 08-31-2020 CBC CBC Lab Routine Tomorrow AM for 7 Occurrences starting 08/25/2020 until 08/31/2020, 1 completed [facility] Work Phone: Comment on above: Tomorrow AM for 7 Occurrences starting 0 08/25/2020 until 08/31/2020, 1 completed End: 10-25-2019 Covid-19, Antibody Covid-19, Antibody Lab Routine One Time for 1 Occurrences starting 10/25/2019 until 10/25/2019 [facility] [place] Comment on above: One Time for 1 Occurrences starting 10/03 until 10/25/2019 Covid-19, Antibody Covid-19, Ant ibody Lab Routine 10/25/2019 10:55 AM EDT [facility] [place] End: 08-03-2024 Ct lumbar spine w/o contrast material CT LUMBAR SPINE WO IVCON Radiology Routine Radiculopathy of lumbar region 1 Occurrences starting 07/05/2023 until 08/03/2024 [facility] Work Phone: Comment on above: 1 Occurrences starting 07/05/2023 until 08/03/2024 Culture, Blood 1 Culture, Blood 1 Microbiology STAT 10/24/2019 7:03 PM EDT [facility] [place] End: 10-25-2019 Culture, Respiratory Culture, Respiratory Microbiology Routine One Time for 1 Occurrences starting 10/25/2019 until 10/25/2019 [facility] [place] Comment on above: One Time for 1 Occurrences starting 10/03 until 10/25/2019 Culture, Respiratory Culture, Re spiratory Microbiology Routine 10/25/2019 10:18 AM EDT [facility] [place] End: 02-14-2019 Endomysial Antibody, IgA Endomysial Antibody, IgA Lab Routine Once for 1 Occurrences starting 02/14/2019 until 02/14/2019 [facility] [place] Comment on above: Once for 1 Occurrences starting 02/15/20 19 until 02/14/2019 Endomysial Antibody, IgA Endomys ial Antibody, IgA Lab Routine 02/14/2019 10:01 AM EDT [facility] [place] Hemoglobin [Presence ] in Urine [facility] Home BIPAP or CPAP Home BIPAP or CPAP Respiratory Care Routine Daily until discontinued starting 10/24/2019 [facility] [place] Comment on above: Daily until discontinued starting 2019 Legionella Antigen Legionella Antigen [facility] Legionella pneumophi la Ag [Presence] in Urine [facility] Magnesium [Mass/Vol] Magnesium L ab Routine Daily until discontinued starting 08/25/2020, 2 completed [facility] Work Phone: Comment on above: Daily until discontinued starting 2020, 2 completed Magnesium [Mass/volu me] in Serum or Plasma [facility] Measurement of keton es in urine using dipstick [facility] End: 10-25-2019 Microscopic observation Gram stain Nom (Unsp spec) Gram Stain Microbiology Routine Once for 1 Occurrences starting 10/25/2019 until 10/25/2019 [facility] [place] Comment on above: Once for 1 Occurrences starting 10/25/19 20 until 10/25/2019 Microscopic urinalysis [facility] [place] Nebulizer therapy HHN Treatment Respiratory Care Routine 4X Daily until discontinued starting 08/24/2020 [facility] Work Phone: Comment on above: 4X Daily until discontinued starting Oxygen therapy [Mini [facility] Data Set] Initiate Oxygen Therapy Protocol Respiratory Care Routine Daily until discontinued starting 08/24/2020 [facility] Work Phone: Comment on above: Daily until discontinued starting 2020 Patient Education [facility] Work Phone: Patient referral [facility] Work Phone: PEP/Flutter [facility] LAUR[place] Galvez Comment on above: Daily until discontinued starting 2019 Every 8hr until disc ontinued starting 10/25/2019 pH of Urine [facility] End: 07-25-2019 Pulse Oximetry Spot Check Pulse Oximetry Spot Check Respiratory Care Routine One Time for 1 Occurrences starting 07/25/2019 until 07/25/2019 [facility] Comment on above: One Time for 1 Occurrences starting 07/06 until 07/25/2019 End: 10-24-2019 Pulse Oximetry Spot Check Pulse Oximetry Spot Check Respiratory Care Routine One Time for 1 Occurrences starting 10/24/2019 until 10/24/2019 [facility] Comment on above: One Time for 1 Occurrences starting 10/03 until 10/24/2019 End: 08-03-2024 Radex spine lumbosacral minimum 4 views XR LUMBAR MOTION 4V AP/LAT/ FLEX/EXT Radiology Routine Radiculopathy of lumbar region 1 Occurrences starting 07/05/2023 until 08/03/2024 [facility] Work Phone: Comment on above: 1 Occurrences starting 07/05/2023 until 08/03/2024 SARS-CoV-2 (COVID-19 ) Ag [Presence] in Respiratory specimen by Rapid immunoassay [facility] Specific gravity of Urine [facility] Spirometry panel Incentive jj metry RT Respiratory Care Routine Every 2hr while awake until discontinued starting 08/24/2020 [facility] Work Phone: Comment on above: Every 2hr while awake until discontinued starting 08/24/2020 End: 07-25-2019 Surgical Pathology Surgical Pathology Lab Routine Once for 1 Occurrences starting 07/25/2019 until 07/[facility] on above: Once for 1 Occurrences starting 07/25/19 20 until 07/25/2019 Surgical Pathology Surgical Path ology Lab Routine 07/25/2019 11:15 AM EST [place] End: 02-14-2019 Tissue Transglutaminase, IgA Tissue Transglutaminase, IgA Lab Routine Once for 1 Occurrences starting 02/14/2019 until 02/14/2019 [facility] LAURA Comment on above: Once for 1 Occurrences starting 02/15/20 19 until 02/14/2019 Tissue Transglutamin ase, IgA Tissue Transglutaminase, IgA Lab Routine 02/14/2019 10:01 AM [facility]T [facility] End: 08-24-2020 Urinalysis Urinalysis Lab STAT One Time for 1 Occurrences starting 08/24/2020 until 08/24/2020 [facility] Work Phone: Comment on above: One Time for 1 Occurrences starting 08/03 until 08/24/2020 Urinalysis Urinalysis Lab S TAT 08/24/2020 5:40 AM EDT [facility] Work Phone: Urinalysis, blood, qualitative [facility] Urine culture Urine Culture [facility] Work Phone: Urine culture [facility] Urine culture [facility] Urine dipstick for glucose [facility] Urine dipstick for leukocyte esterase [facility] Urine dipstick for nitrite [facility] Urine dipstick for protein [facility] End: 08-24-2020 Urine Drug Screen [facility] Work Phone: Comment on above: One Time for 1 Occurrences starting 08/03 until 08/24/2020 Urine Drug Screen Urine Drug Scr een Lab STAT 08/24/2020 5:40 AM EDT [facility] Work Phone: Urine examination [facility] Urine microscopy: epithelial cells [facility] Urine Microscopy: wh ite cells [facility] Urobilinogen [Presen ce] in Urine [facility] Immunizations Immunization Date Immunization Notes Care Provider [facility] 07-17-2022 influenza, injectabl e, quadrivalent, preservative free Dr. Bernardino Moran Work Phone: [facility] 07-17-2022 influenza, seasonal, injectable Dr. Bernardino Moran Work Phone: [facility] 07-17-2022 influenza virus vaccine, unspecified formulation Bernardino Moran MD Work Phone: [facility] 06-07-2022 zoster vaccine-recombinant adjuvanted (Shingrix) 50 MCG/0.5ML vaccine Bernardino Moran MD Work Phone: [facility] 01-07-2022 tuberculin skin test ; purified protein derivative solution, intradermal Nisa Diane RN [facility] 07-30-2021 tuberculin skin test ; purified protein derivative solution, intradermal Nisa Diane RN [facility] 06-14-2021 Covid (Pfizer) Dr. Bernardino callaway Work Phone: [facility] 03-07-2021 Covid (Pfizer) Dr. Bernardino callaway Work Phone: [facility] 03-07-2021 influenza virus vaccine, unspecified formulation Nisa Diane RN [facility] 03-07-2021 influenza, injectabl e, quadrivalent, preservative free Dr. Bernardino Moran Work Phone: [facility] 03-07-2021 influenza, seasonal, injectable Dr. Bernardino Moran Work Phone: [facility] 04-13-2020 influenza, injectabl e, quadrivalent, preservative free Bernardino Moran [facility] 03-04-[address] Bernardino Moran Work Phone: [facility] 02-12-2019 influenza, injectabl e, quadrivalent, preservative free [facility] 03-08-[address] Bernardino Moran Work Phone: [facility] 01-28-2018 Influenza Vaccine, unspecified formulation [facility] , [place] 01-28-2018 influenza virus vaccine, unspecified formulation [facility] 01-23-2018 Influenza Vaccine, unspecified formulation [facility] [place] 02-19-2017 influenza virus vaccine, unspecified formulation [facility] 02-19-2017 influenza, injectabl e, quadrivalent, contains preservative Nisa Diane RN [facility] 02-24-2014 Influenza Vaccine, unspecified formulation [facility] [place] 02-24-2014 influenza, seasonal, injectable Nisa Diane RN [facility] 07-29-2013 tetanus toxoid, redu rosalie diphtheria toxoid, and acellular pertussis vaccine, adsorbed [facility] 03-29-2013 influenza virus vaccine, unspecified formulation Nisa Diane RN [facility] 09-09-2011 pneumococcal polysaccharide vaccine, 23 valent [facility], [place] 09-04-2011 pneumococcal conjuga te vaccine, 13 valent Nisa Diane RN [facility] Payers Date Payer Category Payer Private Health Insurance [id number] 2024 Self-pay [id number] 2024 Medicare (Managed Care) [facility] [id number] 2024 Unknown [id number] 2022 Medicare [id number]. 1.13.680.2 .7.3.514965.315 2022 Medicare HMO UHC DUAL COMPLET E [id number] .[id number] 2022 Unknown [id number] 2021 Medicaid 1.2.840.564878. 1.13.680.2 .7.3.343279.315 2021 Medicaid [id number] 2020 Unknown [id number] 1.2.840.808049.1.13.239.2 .7.3.459789.315 2018 Unknown [employer] M [employer] SURYA - EXCHANGE [id number] 2018-Present [phone] [address] [place] [address] xxxxxxxxxxxx 1.2.840.031646.1.13.239.2 .7.3.549224.315 2018 Unknown [id number] 1960 Unknown [id number] 2.16.840.1.510734.3.579.2 .278 1960 Unknown [id number] 2.16.840.1.640481.3.579.2 .647 1960 Unknown [id number] 2.16.840.1.079247.3.579.2 .647 Medicare [id number] Medicare [id number] Private Health Insurance [id number] Unknown [id number] Unknown [id number] 2.16.840.1.331079.3.579.2 .462 Unknown [id number] 2.16.840.1.840362.3.579.2 .462 Unknown [id number] 2.16.840.1.584995.3.579.2 .462 Unknown [id number] 2.16.840.1.939106.3.579.2 .462 Unknown [id number] 2.16.840.1.590022.3.579.2 .462 Unknown [id number] 2.16.840.1.672482.3.579.2 .462 Unknown [id number] 2.16.840.1.022001.3.579.2 .462 Unknown [id number] 2.16.840.1.881953.3.579.2 .462 Unknown [id number] 2.16.840.1.665725.3.579.2 .462 Unknown [id number] 2.16.840.1.544300.3.579.2 .462 Unknown [id number] 2.16.840.1.507468.3.579.2 .462 Unknown [id number] 2.16.840.1.786161.3.579.2 .462 Unknown [id number] 2.16.840.1.324318.3.579.2 .462 Unknown [id number] 2.16.840.1.022351.3.579.2 .462 Unknown [id number] 2.16.840.1.393096.3.579.2 .462 Unknown [id number] 2.16.840.1.162730.3.579.2 .462 Unknown [id number] 2.16.840.1.526148.3.579.2 .462 Unknown [id number] 2.16.840.1.184321.3.579.2 .462 Unknown [id number] 2.16.840.1.418247.3.579.2 .462 Unknown [id number] 2.16.840.1.982237.3.579.2 .462 Unknown [id number] 2.16.840.1.798444.3.579.2 .462 Unknown [id number] 2.16.840.1.969678.3.579.2 .462 Unknown [id number] 2.16.840.1.882581.3.579.2 .462 Unknown [id number] 2.16.840.1.422117.3.579.2 .462 Unknown [id number] 2.16.840.1.078519.3.579.2 .462 Unknown [id number] 2.16.840.1.734467.3.579.2 .462 Unknown [id number] 2.16.840.1.092781.3.579.2 .462 Unknown [id number] 2.16.840.1.732268.3.579.2 .462 Unknown [id number] 2.16.840.1.914634.3.579.2 .462 Unknown [id number] 2.16.840.1.673517.3.579.2 .462 Unknown [id number] 2.16.840.1.868913.3.579.2 .462 Unknown [id number] 2.16.840.1.696744.3.579.2 .462 Unknown [id number] 2.16.840.1.602492.3.579.2 .462 Unknown [id number] 2.16.840.1.535534.3.579.2 .462 Unknown [id number] 2.16.840.1.974051.3.579.2 .462 Unknown [id number] 2.16.840.1.131440.3.579.2 .462 Unknown [id number] 2.16.840.1.249541.3.579.2 .462 Unknown [id number] 2.16.840.1.391396.3.579.2 .462 Unknown [id number] 2.16.840.1.225393.3.579.2 .462 Unknown [id number] 2.16.840.1.924630.3.579.2 .462 Unknown [id number] 2.16.840.1.207816.3.579.2 .462 Unknown [id number] 2.16.840.1.262991.3.579.2 .462 Unknown [id number] 2.16.840.1.799022.3.579.2 .462 Social History Date Type Detail Facility Start: 01-13-2019 End: 08-29-2022 Tobacco smoking status NHIS Former [place] Start: 06-04-1990 End: 06-04-2005 History of tobacco use Current smoker [place] Start: 06-04-1990 End: 06-04-2005 History of tobacco use Cigarette Smoker [place] Start: 01-13-2019 End: 12-25-2022 Cigarettes smoked current (pack per day) - Reported [place] Start: 01-13-2019 End: 12-25-2022 Alcohol intake Yes [place] Start: 10-31-2017 Alcohol Comment occasional [place] Start: 1960 Sex Assigned At Not on file [place] Start: 07-25-2019 End: 08-09-2023 Alcohol intake Ex-drinker (finding) [facility] Start: 07-02-2019 End: 06-02-2022 History SDOH Alcohol Frequency 1 [place] Start: 07-02-2019 End: 06-02-2022 History SDOH Financial 5 [place] Start: 07-02-2019 End: 06-02-2022 History SDOH Transport Med 2 [place] Exposure to SARS-CoV -2 (event) Unable to assess [place] Start: 07-07-2020 End: 08-29-2022 Tobacco use and exposure Never used [employer] LAURA Dennis Start: 07-07-2020 Alcohol intake Current drinke r of alcohol (finding) [facility] LAURA BARROW Start: 07-07-2020 Alcohol Comment one large kassy le and one small bottle each day [facility] Start: 05-28-2022 End: 02-15-2023 Exposure to SARS-CoV-2 (event) Not sure [facility] Start: 10-15-2021 End: 08-18-2023 Tobacco smoking status NHIS Unknown if ever smoked [facility] Start: 11-24-2020 None [facility] Start: 11-24-2020 Homeless [facility] Start: 01-07-2019 Non-smoker [facility] Start: 1960 Sex Assigned At Female [facility] Start: 06-02-2022 History SDOH Alcohol Std Drinks 0 [facility] Frequency of Alcohol Consumption Not on file [facility] (I/We) worried andry er (my/our) food would run out before (I/we) got money to buy more. Never true [facility] Start: 05-15-2022 Gender identity Identifies as female gender (finding) [facility] Start: 07-05-2023 End: 10-15-2024 Alcohol intake Current non-drinker of alcohol (finding) [facility] Start: 07-05-2023 Tobacco Comment quit in 2009 [facility] Start: 06-24-2021 Alcohol Comment 90 days alcohol free [facility] Within the last year , have you been afraid of your partner or ex-partner? No [facility] Start: 01-02-2022 End: 08-09-2024 Sex Female (finding) [facility] Medical Equipment Procedure Code Equipment Code Equipment Origin al Text Equipment Identifier Dates ORIF, ankle 3.0 Cannulated Screw FDA Sta rt: 07-19-2021 ORIF, ankle 3.5 Kreulock screws-14mm FDA Start: 07-19-2021 ORIF, ankle 3.5 Locking screw FDA Start: 07-19-2021 ORIF, ankle 3.5 cortical scr ew 12mm FDA Start: 07-19-2021 ORIF, ankle Locking Distal F ib Plate FDA Start: 07-19-2021 ORIF, ankle [id number] FDA Start: 07-19-2021 ORIF, ankle 3.0 Cannulated [...] 42mm Mbl lr 2 Tib E - [id number] Start: 12-30-2014 Shell Actb 54mm Prim Sb Hmsphr - [id number] Start: 12-30-2014 Ins Actb 48mm 28 mm Rt Hip Zara - [id number] Start: 12-30-2014 Head V40 Fem Hip 28mm -4mm Blx - [id number] Start: 12-30-2014 Fem Stem Acclde 2 Sz 4 127 Deg - [id number] Start: 12-30-2014 Graft Matrix 20c c Mastergraft - [id number] Start: 08-09-2023 Kit Infuse Bone Graft Xl 8.0cc - [id number] Start: 08-09-2023 Screw Set Ti Spi nal Break Off - [id number] Start: 08-09-2023 Screw Spinal 6.1mew84qc - [id number] Start: 08-09-2023 Screw Multi-Axia l Std 5.5x45mm - [id number] Start: 08-09-2023 Screw Multi-Axia l Std 5.5x45mm - [id number] Start: 08-09-2023 Screw Spinal 5.1jdc42kp - [id number] Start: 08-09-2023 Seth Alumin 5.5mm 500mm [facility] - [id number] Start: 08-09-2023 Goals Date Patient Goal Desired Activity /State Functional Status Date Assessment Result Facility 11-10-2024 Functional status Bedrest [facility] Work Phone: 08-13-2024 Functional status Chair [facility] Work Phone: 07-17-2024 Functional status Bedrest [facility] Work Phone: 12-31-2021 Functional status Bedrest [facility] Work Phone: 12-30-2021 Functional status Standard Walker [facility] Work Phone: 07-22-2021 Functional status Bedside Commode [facility] Work Phone: 07-21-2021 Functional status Assistive Bhavani grecia Rolling Walker [facility] Work Phone: 01-01-2015 Are you deaf, or do you have serious difficulty hearing No 01/01/2015 4:16 PM Jina Mary RN No [facility] 01-01-2015 Are you blind, or do you have serious difficulty seeing, even when wearing glasses No 01/01/2015 4:16 PM Jina Mary RN No [facility] 01-01-2015 Do you have serious difficulty walking or climbing stairs Yes 01/01/2015 4:16 PM Jina Mary RN Yes [facility] 01-01-2015 Do you have difficul ty dressing or bathing No 01/01/2015 4:16 PM Jina Mary, SIMON No [facility] 01-01-2015 Because of a physica l, mental, or emotional condition, do you have difficulty doing errands alone such as visiting a physician's office or shopping Yes 01/01/2015 4:16 PM Jina Mary RN Yes [facility] Mental Status Date Assessment Result Facility 11-10-2024 Cognitive function Voice/Name [facility] Work Phone: 10-21-2024 Cognitive function Voice/Name [facility] Work Phone: 10-14-2024 Cognitive function Awake;Alert;A ppropriate;Fol lows Commands [facility] Work Phone: 09-30-2024 Cognitive function Awake;Alert;Appropriat e [facility] Work Phone: 08-13-2024 Cognitive function Voice/Name;Touch/Shaki ng [facility] Work Phone: 08-09-2024 Cognitive function Level Of Cons ciousness Awake;Alert;Appropriate;Fol lows Commands [facility] Work Phone: 07-17-2024 Cognitive function Voice/Name [facility] Work Phone: 03-15-2022 Cognitive function Awake;Disoriented [facility] Work Phone: 12-31-2021 Cognitive function Voice/Name [facility] Work Phone: 07-22-2021 Cognitive function Voice/Name;Touch/Shaki [facility] Work Phone: 07-21-2021 Cognitive function Cooperative [facility] Work Phone: 07-17-2021 Cognitive function Level Of Cons ciousness Awake;Alert;Appropriate [facility] Work Phone: 01-01-2015 Because of a physica l, mental, or emotional condition, do you have serious difficulty concentrating, remembering, or making decisions No 01/01/2015 4:16 PM Jina Mary, SIMON No [facility] Clinical Notes 08-05-2012 to 11-20-2024 Note Date & Type Note Facility 11-20-2024 Note [facility] 11-19-2024 Note [facility] 11-10-2024 Note [facility] 11-10-2024 Progress note Note Date/Time November 10, 2024 1:51p m [facility] Medical Records Department [facility] [place] [address] Progress Note - Hospitalist 11/10/24 1348 MR#: [id number] Acct: [id number] Name: ALFIE HOGAN Rep #:[id number] : 1960 63 From: Blayne Santana DO PCP: Dr. 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 Work Phone: 1(163) 183-871406-09-2025 [facility]06-08-2025 Progress note Author Blayne Santana [facility] Note Date/Time November 09, 2024 1:41p m [facility] Medical Records Department [address] [place] [address] Progress Note - Hospitalist 11/09/24 0908 MR#: [id number] Acct: [id number] Name: ALFIE HOGAN Rep #:[id number] : 1960 63 From: Blayne Santana DO PCP: Dr. 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 Charges/Coding Visit Charges Inpatient E&M: 77359 Subs Hosp L2 11/09/24 1347 <Electronically signed by Blayne Santana DO> Cosigner Signature (if applicable): CC: ~ Signed [facility] Work Phone: 1(543) 692-185906-07-2025 Progress note Author Blayne lorena [facility] Note Date/Time November 08, 2024 3:00p m [facility] Medical Records Department [address] [place] [address] Progress Note - Hospitalist 11/08/24 09 MR#: [id number] Acct: [id number] Name: ALFIE HOGAN Rep #:[id number] : 1960 63 From: Blayne Santana DO PCP: Dr. Corin Mariscal MD Status:ADM IN Location: [place] [address] Reason for Visit Reason for Visit: Diagnoses Hypokalemia (11/07/24) Acute kidney failure, unspecified (11/07/24) Weakness (11/07/24) Other malaise (11/07/24) Other specified abnormal findings of blood chemistry (11/07/24) Other snf (current) drug therapy (11/07/24) Subjective Subjective Thinks [...] (Auto) 84.0 H, Lymph % (Auto) 9.7 L,[place] % (Auto) 4.1, Eos % (Auto) 0.4, Baso % (Auto) 0.2, Absolute Neuts (auto) 7.6, Absolute Lymphs (auto) 0.87, Nucleated RBC % 0, PT 12.5, INR 0.9, APTT 24.6, Lactic Acid 1.1, Ethyl Alcohol < 10.1 11/07/24 12:21: Urine Color Yellow, Urine Clarity Clear, Urine pH 6.0, Ur Specific [place] 1.010, Urine Protein 100 H, Urine Glucose [...] Colonic diverticulosis without acute diverticulitis. Reading Location: [facility] Brain CT 11/07/24 10:31 IMPRESSION: 1. No fracture seen. 2. No intracranial hemorrhage or other acute process is noted Reading Location: [address] Cervical Spine CT 11/07/24 10:31 IMPRESSION: 1. No acute fracture. 2. Degenerative changes cervical spine as described. Reading Location: [facility] Chest X-Ray 11/07/24 13:30 IMPRESSION: Postsurgical [...] stable, without evidence of cardiomegaly. Reading Location: [id number] Renal Ultrasound 11/07/24 19:24 IMPRESSION: Findings suggestive of medical renal disease. No hydronephrosis. Reading Location: [id number] Physical Exam Const alert and no apparent [...] prophylaxis: LMWH. Charges/Coding Visit Charges Inpatient E&M: 92144 Subs Hosp L2 11/08/24 1500 <Electronically signed by Blayne Santana DO> Cosigner Signature (if applicable): CC: ~ Signed [facility] Work Phone: 1(459) 148-727706-07-2025 Radiology Diagnostic study [facility]06-06-2025 History and physical note Author Kaitlyn Winkler [facility] Note Date/Time November 07, 2024 5:28p m [facility] Medical Records Department [address] [place] [address] H&P Exam - Hospitalist 11/07/24 1619 MR#: [id number] Acct: [id number] Name: ALFIE HOGAN Rep #:[id number] : 1960 63 From: Kaitlyn Winkler DO PCP: Dr. Corin Mariscal MD Status:REG ER Location: ED HPI - General General Date of Admission: 11/07/24 Date of Service: 11/07/24 Chief Complaint: Falls HPI Narrative ALFIE HOGAN, is a 63 F who presented to the emergency department at [facility] on 11/07/2024 with a chief complaint [...] is on temazepam and Xanax [facility]. She is also on anticholinergic [...] her PEDRO as well as electrolyte replacement. [facility] Medical History Normocytic anemia Diabetes Chronic pain [...] (Auto) 84.0 H, Lymph % (Auto) 9.7 L,[place] % (Auto) 4.1, Eos % (Auto) 0.4, Baso % (Auto) 0.2, Absolute Neuts (auto) 7.6, Absolute Lymphs (auto) 0.87, Nucleated RBC % 0, PT 12.5, INR 0.9, APTT 24.6, Lactic Acid 1.1, Ethyl Alcohol < 10.1 11/07/24 12:21: Urine Color Yellow, Urine Clarity Clear, Urine pH 6.0, Ur Specific [place] 1.010, Urine Protein 100 H, Urine Glucose [...] Colonic diverticulosis without acute diverticulitis. Reading Location: [facility] Brain CT 11/07/24 10:31 IMPRESSION: 1. No fracture seen. 2. No intracranial hemorrhage or other acute process is noted Reading Location: [address]ervical Spine [address] 11/07/24 10:31 IMPRESSION: 1. No acute fracture. 2. Degenerative changes cervical spine as described. Reading Location: [facility] Chest X-Ray 11/07/24 13:30 IMPRESSION: Postsurgical changes [...] stable, without evidence of cardiomegaly. Reading Location: [address] Assessment & Plan Assessment/Plan (1) PEDRO [...] short-term intubation Charges/Coding Visit Charges Inpatient E&M: 33959 Init Hosp L3 11/07/24 7422 <Electronically signed by Kaitlyn Winkler DO> Cosigner Signature (if applicable): CC: Dr. Corin Mariscal MD; Dr. Kaitlyn Winkler DO~ Signed [facility] Work Phone: 1(615) 657-769506-06-2025 Discharge summary Author Armen Gonzales [facility] Note Date/Time November 07, 2024 4:21p m [facility] Medical Records Department [address] [place] [address] Emergency Department Summary 11/07/24 MR#: [id number] Acct: [id number] Name: ALFIE HOGAN Rep #:[id number] : 1960 63 From: Armen Gonzales DO [...] alone and has family in the area. [facility] Medical History Diabetes Chronic pain CPAP (continuous [...] follow commands knew that she was at [facility] the year is 2024. NIH is 0 [...] 84.0 H Lymph % (Auto) 9.7 L [place] % (Auto) 4.1 Eos % (Auto) 0.4 [...] Clarity Clear Urine pH 6.0 Ur Specific [place] 1.010 Urine Protein 100 H Urine Glucose [...] (Auto) Neut % (Auto) Lymph % (Auto) [place] % (Auto) Eos % (Auto) Baso % [...] Color Urine Clarity Urine pH Ur Specific [place] Urine Protein Urine Glucose (UA) Urine Ketones [...] Colonic diverticulosis without acute diverticulitis. Reading Location: [facility] Brain CT 11/07/24 10:31 IMPRESSION: 1. No fracture seen. 2. No intracranial hemorrhage or other acute process is noted Reading Location: [address] Cervical Spine [address] 11/07/24 10:31 IMPRESSION: 1. No acute fracture. 2. Degenerative changes cervical spine as described. Reading Location: [facility] Chest X-Ray 11/07/24 13:30 IMPRESSION: Postsurgical [...] stable, without evidence of cardiomegaly. Reading Location: [address] Discharge Plan Triage Chief Complaint: Fall [...] MD [Primary Care Provider] - Print Language: Sudanese Disposition Disposition: Acute Care Hospital [facility] What to do if you have Problems For any increased pain, shortness of breath, bleeding, nausea or vomiting, chestpain, or any unexpected problems, contact your Primary Care Provider. Call [facility] ([phone]) or report to the closest Emergency Room. Call 911 if necessary. 11/07/24 6885 <Electronically signed by Armen Gonzales DO> Cosigner Signature (if applicable): CC: Dr. Corin Mariscal MD ~ Signed [facility] Work Phone: 1(946) 975-575206-06-2025 History and physical note Author Kaitlyn Winkler [facility] Note Date/Time November 07, 2024 5:28p m [facility] Medical Records Department [address] [place] [address] H&P Exam - Hospitalist 11/07/24 1619 MR#: [id number] Acct: [id number] Name: ALFIE HOGAN Rep #:[id number] : 1960 63 From: Kaitlyn Winkler DO PCP: Dr. Corin Mariscal MD Status:REG ER Location: ED HPI - General General Date of Admission: 11/07/24 Date of Service: 11/07/24 Chief Complaint: Falls HPI Narrative ALFIE HOGAN, is a 63 F who presented to the emergency department at [facility] on 11/07/2024 with a chief complaint [...] her PEDRO as well as electrolyte replacement. [facility] Medical History Normocytic anemia Diabetes Chronic pain [...] (Auto) 84.0 H, Lymph % (Auto) 9.7 L,[place] % (Auto) 4.1, Eos % (Auto) 0.4, Baso % (Auto) 0.2, Absolute Neuts (auto) 7.6, Absolute Lymphs (auto) 0.87, Nucleated RBC % 0, PT 12.5, INR 0.9, APTT 24.6, Lactic Acid 1.1, Ethyl Alcohol < 10.1 11/07/24 12:21: Urine Color Yellow, Urine Clarity Clear, Urine pH 6.0, Ur Specific [place] 1.010, Urine Protein 100 H, Urine Glucose [...] Colonic diverticulosis without acute diverticulitis. Reading Location: [facility] Brain CT 11/07/24 10:31 IMPRESSION: 1. No fracture seen. 2. No intracranial hemorrhage or other acute process is noted Reading Location: [address] Cervical Spine CT 11/07/24 10:31 IMPRESSION: 1. No acute fracture. 2. Degenerative changes cervical spine as described. Reading Location: [facility] Chest X-Ray 11/07/24 13:30 IMPRESSION: Postsurgical changes [...] stable, without evidence of cardiomegaly. Reading Location: [address] Assessment & Plan Assessment/Plan (1) PEDRO [...] short-term intubation Charges/Coding Visit Charges Inpatient E&M: 77267 Init Hosp L3 11/07/24 1728 <Electronically signed by Kaitlyn Winkler DO> Cosigner Signature (if applicable): CC: Dr. Corin Mariscal MD; Dr. Kaitlyn Winkler DO~ Signed [facility] Work Phone: 1(983) 234-639006-06-2025 Radiology Diagnostic study [facility]06-06-2025 Radiology Diagnostic study [facility]06-06-2025 Radiology Diagnostic study [facility] 11-07-2024 Radiology Diagnostic study [facility]05-16-2025 Telephone encounter Note* Telephone Encounter - Aiyana Aceveod LPN - 10/17/2024 8:47 AM EDT Patient is aware of all information and will have MMA drawn 10/31/2024, when here for other labs. Aiyana Acevedo LPN [facility]05-16-2025 Miscellaneous Notes* Telephone Encounter - Aiyana Acevedo [...] filed. Jose Dennison DO documented in this encounterSycamore [facility] Center05-15-2025 Telephone encounter Note * Telephone Encounter - Jose Dennison DO - 10/16/2024 4:50 PM EDT Can let her know her CBC is now essentially normal. Remainder of the lab work was normal but B12 was in the low normal range so I would like to get an MMA to verify if there is underlying B12 deficiency. Order filed. Jose Dennison DO [facility]05-14-2025 NoteHNO ID: [id number] Author: JOSE DENNISON DO Service: ? Author [...] any cystic or focal masses. Admitted to [facility] in August for hyperglycemia. Was found [...] fracture sometime 2021. Bone marrow biopsy at ?[facility] 2021. Was started on iron sucrose. [...] FLX DX W/COLLJ SPEC WHEN PFRMD 09/15/2005 [facility] Colonoscopy EGD TRANSORAL BIOPSY SINGLE/MULTIPLE 08/30/2006 [...] (NAMENDA) 5 mg tab (more content not included)...[facility]05-14-2025 History of Present illness Narrative* ElviJoseDO - 10/15/2024 2:56 PM EDT Patient referred by Dr. Mariscal for pancytopenia. HPI: The patient is a 63-year-old female with a past medical history as outlined below. CT abdomen pelvis July 2023 demonstrated no evidence of hepatic abnormality. Spleen was noted to be normal size without any cystic or focal masses. Admitted to [facility] in August for hyperglycemia. Was found [...] fracture sometime 2021. Bone marrow biopsy at [facility] 2021. Was started on iron sucrose. Scheduled [...] FLX DX W/COLLJ SPEC WHEN PFRMD 09/15/2005 [facility] Colonoscopy EGD TRANSORAL BIOPSY SINGLE/MULTIPLE 08/30/2006 [...] past medical history. Reviewed electronic record through [facility]. I cannot find record of a bone marrow biopsy. Nonetheless, platelet count has fluctuated and had been mild. Only during the hospitalization at [facility] in 2023 when she underwent revision of [...] which included preparing to see the patient, kmsr-di-eqoj patient care, completing clinical documentation, obtaining and/or reviewing separately obtained history, counseling and educating the patient/family/caregiver, ordering medications, cherry ts, or procedures, communicating with other HCPs (not separately reported), and communicating results to the patient/family/caregiver. Jose Dennison DO documented in this encounterSycamore Medical Center03-12-2025 [facility]03-08-2025 Discharge summary [facility] Medical Records Department [address] [place] [address] Emergency Department Summary 08/09/24 MR#: [id number] Acct: [id number] Name: ALFIE HOGAN Rep #:[id number] : 1960 63 From: Airam ADEN PCP: Dr. Corin Mariscal MD Status:ADM IN O Location: [place]3 ZB992-0 HPI History of Present Illness Chief Complaint: [...] diagnosis of migraines. She states she tried rhfa-nzi-ozevkba Tylenol and ibuprofen without much relief. She was prescribed [place] for headaches last month but states it does not help. She states she has been sick for 1 to 2 months and had COVID and has been dealing with ongoing sinus drainage and respiratory symptoms. She has been on 3 rounds of antibiotic and steroids and just finished them. She is on chronic 5 L of oxygen for pulmonary hypertensionand a paralyzed diaphragm. [facility] Medical History (Updated 08/09/24 @ 20:38 by [...] 5/5 upper and lower extremity strength, normal uyogur-af-kgcd bilaterally. PSYCH: Normal affect. Const Vital Signs: [...] % (Auto) 64.4 Lymph % (Auto) 25.7 [place] % (Auto) 7.9 Eos % (Auto) 1.1 [...] Clarity Clear Urine pH 7.0 Ur Specific [place] 1.010 Urine Protein 30 H Urine Glucose [...] infection can not be excluded. [facility] attending interpretation of 1 view chest [...] % (Auto) 64.4 Lymph % (Auto) 25.7 [place] % (Auto) 7.9 Eos % (Auto) 1.1 [...] Clarity Clear Urine pH 7.0 Ur Specific [place] 1.010 Urine Protein 30 H Urine Glucose [...] infection can not be excluded. Reading [facility] Dis[facility] Plan Triage Chief Complaint: Headache ED Midlevel Provider: Airam Rocha ED Provider: Torey Mercedes Dx/Rx/DC Orders Clinical Impression: Headache, Acute hyperglycemia, Pancytopenia Primary Care Provider: Corin Mariscal What to do if you have Problems For any increased pain, shortness of breath, bleeding, nausea or vomiting, chest pain, or any unexpected problems, contact your Primary Care Provider. Call [facility] ([phone]) or report to the closest Emergency Room. Call 911 if necessary. 08/09/242037 Cosigner Signature (if applicable): 08/09/242056 CC: Dr. Corin Marsical MD ~ Signed [facility]03-08-2025 Radiology Diagnostic study note [facility] Imaging Services [address] [place] [address] Chest PA and Lateral MR#: [id number] Acct: [id number] Name: ALFIE HOGAN Rep #: [id number] : 1960 F 63 From: Genny Andre DO PCP: Dr. Corin Mariscal MD Status: REG ER Study:Chest PA and Lateral Date of Exam: 08/09/24 Exam# [id number] Ordering Dr: Airam Duran PROCEDURE: CHEST PA [...] Dr. Corin Mariscal MD; MARKIE Dolan ~ Social Services Specialist: Signed [facility]03-08-2025 Discharge summary Author Airam Rocha [facility] Note Date/Time August 09, 2024 8:[address] [facility] Medical Records Department [address] [place] [address] Emergency Department Summary 08/09/24 MR#: [id number] Acct: [id number] Name: ALFIE HOGAN Rep #:[id number] : 1960 63 From: Airam ADEN PCP: Dr. Corin Mariscal MD Status:ADM IN O Location: [place]3 VP232-1 HPI <MARKIE Dolan - Last Filed: 08/09/24 [...] diagnosis of migraines. She states she tried eqec-hta-yrlnovv Tylenol and ibuprofen without much relief. She was prescribed [place] for headaches last month but states it does not help. She states she has been sick for 1 to 2 months and had COVID and has been dealing with ongoing sinus drainage and respiratory symptoms. She has been on 3 rounds of antibiotic and steroids and just finished them. She is on chronic 5 L of oxygen for pulmonary hypertensionand a paralyzed diaphragm. [facility] <MARKIE Dolan - Last Filed: 08/09/24 20:38> [facility] Medical History (Updated 08/09/24 @ 20:38 by [...] 5/5 upper and lower extremity strength, normal aqcfsn-ky-lscv bilaterally. PSYCH: Normal affect. Const Vital Signs: 08/09/24 17:16 08/09/24 17:58 08/09/24 19:16 Temperature 98.2 F Temperature Source Temporal Pulse Rate 99 93 Respiratory Rate 18 24 H Blood Pressure 142/63 H Blood Pressure Mean 89 Pulse Ox 98 97 96 Oxygen Delivery Method Nasal Cannula Nasal Cannula Nasal Cannula Oxygen Flow Rate (L/min) 4 4.5 4.5 <Dr. Torey Mercdees DO - Last Filed: 08/09/24 20:48> Physical Exam Const Vital Signs: 08/09/24 17:16 08/09/24 17:58 08/09/24 19:16 Temperature 98.2 F Temperature Source Temporal Pulse Rate 99 93 Respiratory Rate 18 24 H Blood Pressure 142/63 H Blood Pressure Mean 89 Pulse Ox 98 97 96 Oxygen Delivery Method Nasal Cannula Nasal Cannula Nasal Cannula Oxygen Flow Rate (L/min) 4 4.5 4.5 [facility] <MARKIE Dolan - Last Filed: 08/09/24 20:38> [facility] Narrative Medical decision making narrative: Differential [...] % (Auto) 64.4 Lymph % (Auto) 25.7 [place] % (Auto) 7.9 Eos % (Auto) 1.1 [...] Clarity Clear Urine pH 7.0 Ur Specific [place] 1.010 Urine Protein 30 H Urine Glucose [...] infection can not be excluded. Reading Location: [facility] ED attending interpretation of 1 view chest x-ray shows elevated right hemidiaphragm, no large infiltrate. <Dr. Torey Mercedes, DO - Last Filed: 08/09/24 20:48> [facility] Narrative Medical decision making narrative: Differential [...] % (Auto) 64.4 Lymph % (Auto) 25.7 [place] % (Auto) 7.9 Eos % (Auto) 1.1 [...] Clarity Clear Urine pH 7.0 Ur Specific [place] 1.010 Urine Protein 30 H Urine Glucose [...] infection can not be excluded. Reading Location: [facility] Discharge Plan Triage Chief Complaint: Headache ED Midlevel Provider: Airam Rocha ED Provider: Torey Mercedes Dx/Rx/DC Orders Clinical Impression: Headache, Acute hyperglycemia, Pancytopenia Primary Care Provider: Corin Mariscal What to do if you have Problems For any increased pain, shortness of breath, bleeding, nausea or vomiting, chest pain, or any unexpected problems, contact your Primary Care Provider. Call [facility] ([phone]) or report to the closest Emergency Room. Call 911 if necessary. 08/09/242037 <Electronically signed by Airam Rocha PA> Cosigner Signature (if applicable): 08/09/242056 <Electronically signed by Torey Mercedes DO> CC: Dr. Corin Mariscal MD ~ Signed [facility] Work Phone: 1(737) 698-758902-13-2025 [facility]02-11-2025 Evaluation note* Diagnosis Onset Date Resolution Status [...] 2024 8:32pm Headache acute August 09 8:32pm [facility] Work Phone: 1(524) 549-459702-11-2025 Evaluation note* Diagnosis Onset Date Resolution Status [...] 2024 4:52pm Headache resolved August 11 4:52pm [facility] Work Phone: 1(571) 943-718602-11-2025 Evaluation note* Diagnosis Onset Date Resolution Status [...] 2024 4:45pm Hypokalemia acute November 07 4:45pm [facility] Work Phone: 1(416) 280-391002-11-2025 Evaluation note* Diagnosis Onset Date Resolution Status [...] 2024 4:45pm Hypokalemia acute November 07 4:45pm [facility] Work Phone: 1(303) 288-167501-17-2025 Telephone encounter Note* Telephone Encounter - Willow [...] chest) Protocols used: COVID-19 - Diagnosed or Uzahmfnpo-ATCWE-GN [facility]01-17-2025 Miscellaneous Notes* Telephone Encounter - Willow Baez [...] chest) Protocols used: COVID-19 - Diagnosed or Qrgalgexw-GZUSR-EM documented in this encounterSycamore Medical Center05-17-2024 Telephone encounter Note * Telephone Encounter - SUZY Barrera CNP - 10/19/2023 11:28 AM EDT Noted. Thank you. [facility] HospitalRmmjpa27-07-8994 Miscellaneous Notes* Telephone Encounter - SUZY Barrera CNP - 10/19/2023 11:28 AM EDT Noted. Thank you. * Telephone Encounter - Debbie Andrews MA - 10/19/2023 10:36 AM EDT She does not see our office anymore, found a new PCP. Called her and notified her to update Emmett. * Telephone Encounter - SUZY Barrera CNP - 10/18/2023 5:26 PM EDT Rx sent with no refills. Due for physical and fasting blood work. Please schedule. * Telephone Encounter - Li Quiñones MA - 10/18/2023 3:08 PM EDT Prescription Request: Last medication check: 02/15/23 Last physical exam: 06/07/22 Next scheduled appointment: none Last date of refill on this medication 06/05/23 documented in this encounterSPomerene HospitalZrtzzf04-38-0628 Telephone encounter Note* Telephone Encounter - Debbie Andrews MA - 10/19/2023 10:36 AM EDT She does not see our office anymore, found a new PCP. Called her and notified her to update Emmett. [facility] [id number] Telephone encounter Note* Telephone Encounter - SUZY Barrera CNP - 10/18/2023 5:26 PM EDT Rx sent with no refills. Due for physical and fasting blood work. Please schedule. [facility] HospitalEsstlh19-81-4656 Telephone encounter Note* Telephone Encounter - Li Quiñones MA - 10/18/2023 3:08 PM EDT Prescription Request: Last medication check: 02/15/23 Last physical exam: 06/07/22 Next scheduled appointment: none Last date of refill on this medication 06/05/[address] [facility] [id number] Telephone encounter Note* Telephone Encounter - Lou Major - 08/20/2023 7:38 AM EDT BRANDON BEAN MD did surgery will follow up with him. [facility] HospitalBlauaz26-64-5215 Miscellaneous Notes* Telephone Encounter - Lou Major - 08/20/2023 7:38 AM EDT BRANDON BEAN MD did surgery will follow up with him. * Telephone Encounter - Torrie Urbina - 08/18/2023 9:11 PM EDT Name of caller requesting page: [place] Phone number of caller: [phone] Facility requesting page: [facility] Reason for page: N/A Provider paged: Dr. Sanchez Practice name of paged provider: [facility] Physician Orthopedics - Sports Medicine Page placed to #: N/A Time page was sent or provider contacted: 9:12PM Method of contact: Secure Chat Page content: Please call Asia she is calling on behalf of Dr. Jackson Gordillo for patient Cheo 1960. Please call Asia at [phone]. documented in this encounterSPomerene HospitalEdwafc53-21-8949 Telephone encounter Note* Telephone Encounter - Torrie Urbina - 08/18/2023 9:11 PM EDT Name of caller requesting page: [place] Phone number of caller: [phone] Facility requesting page: [facility] Reason for page: N/A Provider paged: Dr. Sanchez Practice name of paged provider: [facility] Physician Orthopedics - Sports Medicine Page placed to #: N/A Time page was sent or provider contacted: 9:12PM Method of contact: Secure Chat Page content: Please call Asia she is calling on behalf of Dr. Jackson Gordillo for patient Cheo 1960. Please call Asia at [phone]. [facility] HospitalZzelkn39-75-3486 Hospital Discharge instructions Additional Instructions Call Dr. Bean's office first thing Sunday morning. You may speak with his physician licensed loan officer assistant regarding pain control. Increase your Percocet to 1 to 2 tablets every 4-6 hours as needed pain.[facility] Work Phone: 1(229) 710-388403-11-2024 History of Present illness Narrative* Talya Nino RN - 08/13/2023 10:23 PM EDT Transport here to get pt. Report given to medic. All belongings in room sent with pt including CPAP. No further questions at this time. * Talya Nino RN - 08/13/2023 9:39 PM EDT Report called to [place]. SIMON Bolton took report with no further questions at this time. 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 * Samantha Oliver MD - 08/13/2023 [...] Date: 08/09/2023 PCP: Bernardino Moran MD Room#: H-7671/H-3408 A Brief Hospital course: Patient is a [...] Apolinar Yin MD Division of Hospitalist Medicine [facility] * Talya Peterson MD - 08/13/2023 10:45 AM EDT Alfie Hogan is a 62 y.o.female No chief complaint on file. Patient seen and examined, history of dysthymia, back pain. S/P OR, has been confused and anxious since surgery. 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 Patient denies SI, is angry at perceived lapses of care. Who called you! Patient lives with ex-, plans to move out when feeling better. Denies alcohol use for over 14 years. Denies SI. Past Medical History: Diagnosis Date 2018 novel coronavirus disease (COVID-19) Alcohol dependence with uncomplicated withdrawal ([facility]) 07/07/2020 Allergic Anxiety Arthritis Asthma Bronchiectasis ([facility]) COPD exacerbation ([facility]) 10/24/2019 Depression Diaphragm paralysis Diastolic heart failure ([facility]) Dizziness 11/09/2020 Dvt femoral (deep venous thrombosis) ([facility]) right...was on blood thinners after broken ankle have been off thinners for a few years Fall 11/21/2020 GERD (gastroesophageal reflux disease) Hypertension Kidney disease Kidney failure 01/09/2019 Kidney stone Obesity Oxygen decrease Currently on Home oxygen, uses with exertion Pulmonary hypertension ([facility]) Pulmonary hypertension ([facility]) Weakness 11/21/2020 Current Outpatient Medications Medication Instructions [...] Date: 08/09/2023 PCP: Bernardino Moran MD Room#: H-0626/H-4031 A Brief Hospital course: Patient is a [...] Yin MD Division of Hospitalist Medicine [facility] * Tomas Davidson JD, MD - 08/12/2023 [...] MD 08/12/2023 11:42 AM * Airam Coughlin, CRITICAL CARE NURSE SPECIALIST - 08/12/2023 9:37 AM EDT Images from the original note were not included. PHYSICAL THERAPY [facility] Treatment Note Name/MRN: Kayce Hogan ([id number]) Date of : 1960 Age: 62 y.o. [facility]: [facility] A Discharge Recommendation: Long-Term Facility Equipment Needed: No Prior Level of [...] original note were not included. OCCUPATIONAL THERAPY [facility] Initial Evaluation Name/MRN: Kayce Hogan ([id number]) Evaluation Date: 08/12/2023 Date of : 1960 Admission Date: 08/09/2023 7:14 AM Age: 62 y.o. Room[facility]Bed: [facility] A Discharge Recommendation: Long-Term Facility Equipment Needed: (continue to assess) Assessment [...] disease (COVID-19) Alcohol dependence with uncomplicated withdrawal ([facility]) 07/07/2020 Allergic Anxiety Arthritis Asthma Bronchiectasis ([facility]) COPD exacerbation ([facility]) 10/24/2019 Depression Diaphragm paralysis Diastolic heart failure ([facility]) Dizziness 11/09/2020 Dvt femoral (deep venous thrombosis) ([facility]) right...was on blood thinners after broken ankle have been off thinners for a few years Fall 11/21/2020 GERD (gastroesophageal reflux disease) Hypertension Kidney disease Kidney failure 01/09/2019 Kidney stone Obesity Oxygen decrease Currently on Home oxygen, uses with exertion Pulmonary hypertension ([facility]) Pulmonary hypertension ([facility]) Weakness 11/21/2020 Past Surgical History: Past Surgical [...] with other underlying disease with behavioral disturbance ([facility]) 12/06/2021 Other pancytopenia (CMS/HCC) ([facility]) 12/06/2021 Hypertensive heart and chronic kidney disease with heart failure and stage 1 through stage 4 chronic kidney disease, or unspecified chronic kidney disease ([facility]) 12/06/2021 Bimalleolar fracture 12/06/2021 Forgetfulness 12/06/2021 Closed fracture of proximal phalanx of toe of left foot 12/06/2021 Personal history of COVID-19 12/06/2021 Postoperative complication 12/06/2021 Subluxation of right ankle joint 12/06/2021 Morbid (severe) obesity due to excess calories (HCC) 12/06/2021 Ulcerative colitis, unspecified, without complications ([facility]) 12/06/2021 Tremor 11/21/2020 Hypokalemia 08/26/2020 Chronic hypoxemic respiratory failure (HCC) 08/26/2020 GERD (gastroesophageal reflux disease) 08/26/2020 GENNARO (obstructive sleep apnea) 08/26/2020 Essential hypertension 08/26/2020 Hyperlipidemia 08/26/2020 Current moderate episode of major depressive disorder without prior episode ([facility]) 08/26/2020 Anxiety 08/26/2020 Diaphragm dysfunction 07/27/2020 Unspecified mood (affective) disorder ([facility]) 07/09/2020 Edema of lower extremity 05/10/2020 Stage [...] Needs Assist Receives Help From: Other Active Professor Of Environmental Studies: Yes Prior Level of Function ADL Assistance: [...] of Care supervision is transferred to a [facility] Therapy Services Occupational Therapist. Goals and/or treatment plan was established in collaboration with patient/family/other representatives. * Hattie Brown RCP - 08/11/2023 10:09 PM EST [facility] Respiratory Care Department Progress Note Comment [...] in 2 weeks -Ortho primary team. -Dispo: [facility] Samantha Oliver MD PGY-2 Orthopaedic Surgery 08/11/2023 7:53 PM * Aliya Hoff - 08/11/2023 1:38 PM EST Nutrition rescreen completed. Chart reviewed. Patient to be monitored and followed by the diet data technician. KANE Kang * Apolinar Yin MD [...] Date: 08/09/2023 PCP: Bernardino Moran MD Room#: H-6430/H-0959 A Brief Hospital course: Patient is a [...] Apolinar Yin MD Division of Hospitalist Medicine [facility] * Manjit Rocha PTA - 08/11/2023 12:49 PM EST Images from the original note were not included. PHYSICAL THERAPY [facility] Name/MRN: Kayce Hogan ([id number]) Date: 08/11/2023 Per RN, Pt w/ low BP, confusion and additional unit of PRBC ordered for low hgb. Will hold PT at this time until Pt is more medically stable for PT. Manjit Rocha PTA * Debora Ortez APRN - [place] - 08/11/2023 10:16 AM EST PAGING: The Acute Pain Service providers are available exclusively via [employer] SECURE CHAT. APS does not utilize pagers. [...] is frustrated, thought she would be at jail by now. Then states that her pain [...] Pain Service providers are available exclusively via [employer] SECURE CHAT. APS does not utilize pagers. [...] Rodriguez RCP - 08/10/2023 9:00 PM EST [facility] Respiratory Care Department Progress Note Comment [...] Date: 08/09/2023 PCP: Bernardino Moran MD Room#: H-6105/H-0742 A Brief Hospital course: Patient is a [...] Apolinar Yin MD Division of Hospitalist Medicine [facility] * Rachel Gallardo, PT - 08/10/2023 10:39 AM EST Images from the original note were not included. PHYSICAL THERAPY [facility] Initial Evaluation Name/MRN: Kayce Hogan ([id number]) Evaluation Date: 08/10/2023 Date of : 1960 Admission Date: 08/09/2023 7:14 AM Age: 62 y.o. Room/Bed: 6105/6105 A Discharge Recommendation: Long-Term Facility Equipment Needed: No Assessment IMPRESSION: Pt [...] disease (COVID-19) Alcohol dependence with uncomplicated withdrawal ([facility]) 07/07/2020 Allergic Anxiety Arthritis Asthma Bronchiectasis ([facility]) COPD exacerbation ([facility]) 10/24/2019 Depression Diaphragm paralysis Diastolic heart failure ([facility]) Dizziness 11/09/2020 Dvt femoral (deep venous thrombosis) ([facility]) right...was on blood thinners after broken ankle have been off thinners for a few years Fall 11/21/2020 GERD (gastroesophageal reflux disease) Hypertension Kidney disease Kidney failure 01/09/2019 Kidney stone Obesity Oxygen decrease Currently on Home oxygen, uses with exertion Pulmonary hypertension ([facility]) Pulmonary hypertension ([facility]) Weakness 11/21/2020 Past Surgical History: Past Surgical [...] with other underlying disease with behavioral disturbance ([facility]) 12/06/2021 Other pancytopenia (CMS/HCC) ([facility]) 12/06/2021 Hypertensive heart and chronic kidney disease with heart failure and stage 1 through stage 4 chronic kidney disease, or unspecified chronic kidney disease (HCC) 12/06/2021 Bimalleolar fracture 12/06/2021 Forgetfulness 12/06/2021 Closed fracture of proximal phalanx of toe of left foot 12/06/2021 Personal history of COVID-19 12/06/2021 Postoperative complication 12/06/2021 Subluxation of right ankle joint 12/06/2021 Morbid (severe) obesity due to excess calories ([facility]) 12/06/2021 Ulcerative colitis, unspecified, without complications (HCC) 12/06/2021 Tremor 11/21/2020 Hypokalemia 08/26/2020 Chronic hypoxemic respiratory failure ([facility]) 08/26/2020 GERD (gastroesophageal reflux disease) 08/26/2020 GENNARO (obstructive sleep apnea) 08/26/2020 Essential hypertension 08/26/2020 Hyperlipidemia 08/26/2020 Current moderate episode of major depressive disorder without prior episode ([facility]) 08/26/2020 Anxiety 08/26/2020 Diaphragm dysfunction 07/27/2020 Unspecified mood (affective) disorder ([facility]) 07/09/2020 Edema of lower extremity 05/10/2020 Stage [...] Needs Assist Receives Help From: Other Active Professor Of Environmental Studies: Yes Pt initially reported indep with ADLS, [...] Max Assist Stand to sit: Mod Assist studio technician video operator present to assist. Pt reported nausea sitting [...] Raw Score (No Stairs) : 10 [facility] Score: Static standing (1 or more minutes) [...] of Care supervision is transferred to a [facility] Services Physical Therapist. Goals [...] MD 08/10/2023 11:47 AM documented in this [facility]03-11-2024 Note* Care Coordination - BERNIE Silverio - 08/13/2023 3:20 PM EDT Transport arranged for 1999 today to transfer pt to [facility]. RNUS, TCC, pt and [facility] notified. [facility] [id number] Note* Care Coordination - BERNIE Silverio - 08/13/2023 3:20 PM EDT Transport arranged for 1999 today to transfer pt to [facility]. US SIMON, TCC, pt and [facility] notified. [facility] [id number] Miscellaneous Notes* Care Coordination - BERNIE Silverio - 08/13/2023 3:20 PM EDT Transport arranged for 1999 to transfer pt to [facility]. RN, US, TCC, pt and [facility] notified. * Care Coordination - Unknown Case Management - 08/13/2023 3:19 PM EDT Patient Choice Patient Name: ALFIE HOGAN Date of : 1960 All Providers Sent Referral Name: [facility] Phone: [phone] Address: [address] [place] [address] [address] [facility] Phone: [phone] Address: [address] [place] [address] * Care Coordination - Logan Maurer - 08/13/2023 10:43 AM EDT Updates placed to [facility] via [facility] per TCC request. Await review and response regarding ability to accept. TCC notified. * Care Coordination - Bre Parikh RN - 08/13/2023 7:51 AM EDT Images from the original note were not included. Care Management Progress Note Patient remains on H6 s/p removal of hardware lami fusion 08/09/2023. Reg diet noted. PT/OT following, recommending snf. Hgb 7.8, trending. Discharge plan is [facility]. TCC to assist and follow as needed. Discharge Milestones and Delays Expected Date/Time: 08/13/2023 Disposition: Long-Term Facility Transport status: No current request Discharge [...] patient over the weekend. Auth started at [facility]. Message sent to facility regarding auth status. Awaiting response. TCC to continue to follow. * Care Coordination - Bre Parikh RN - 08/10/2023 2:43 PM EST [facility] is able to accept patient, auth started. Weekend TCC tasked to follow. TCCto assist and follow as needed. * Care Coordination - Bre Parikh RN - 08/10/2023 12:52 PM EST Care Managment Initial Assessment Date: 08/10/2023 Patient Name: Alfie Hogan : 1960 Patient Information Source of Information: Patient Cognition/Language: WFL - Within Functional Limits Permission given to speak with patient claim service representative/caregiver as indicated: Yes Confirmation of Payer with patient/family: Yes Payer Name: [facility] Dual Complete : No Confirmation of Primary [...] be discharged to: SNF Discharge Planning Actions: Long-Term Facility referral indicated, Continue to follow [place] of choice: [place] of choice discussed Patient's Choice Rights and [...] go to a snf, [facility] choice is [facility] and [facility] IT BUSINESS PROCESS ARCHITECT tasked to make referrals. Patient is tearful throughout visit. Discharge plan is snf. TCC to assist and follow as needed. '' Bre Parikh RN * Care Coordination - Logan Maurer - 08/10/2023 11:25 AM EST Referral placed to [facility] ( [facility] living[facility] per [facility] request. Await review and [...] out [place]. This decompressing the bilateral exiting [id number] roots which were free. At this point [...] skin. End of dictation documented in this [facility]03-11-2024 Note* Care Coordination - Unknown Case Management - 08/13/2023 3:19 PM EDT Patient Choice Patient Name: ALFIE HOGAN Date of : 1960 All Providers Sent Referral Name: [facility] Phone: [phone] Address: [address] [place] [address] Name: [facility] Phone: [phone] Address: [address] [place] [address] [place] [id number] Note* Care Coordination - Unknown Case Management - 08/13/2023 3:19 PM EDT Patient Choice Patient Name: ALFIE HOGAN Date of : 1960 All Providers Sent Referral Name: [facility] Phone: [phone] Address: [address] [place] [address] Name: [facility] Phone: [phone] Address: [address] [place] [address] [place] [id number] NoteOrthopaedic Spine Progress Note Name: Alfie Hogan [...] of hematoma. Samantha Oliver MD 08/13/2023 2:30 [facility]03-11-2024 NoteHospitalist Progress Note 08/13/2023 Assessment/Plan: Data: (CAT1) [...] Date: 08/09/2023 PCP: Bernardino Moran MD Room#: H-6029/E-1742 A Brief Hospital course: Patient is a [...] Rhythm: Normal rate. Pulmonary: (more content not included)...[facility]03-11-2024 Note* Care Coordination - Logan Maurer - 08/13/2023 10:43 AM EDT Updates placed to [facility] via [facility] per TCC request. Await review and response regarding ability to accept. TCC notified. [facility] [id number] Note* Care Coordination - Logan Maurer - 08/13/2023 10:43 AM EDT Updates placed to [facility] via [facility] per TCC request. Await review and response regarding ability to accept. TCC notified. [place] [id number] Note* Care Coordination - Bre Parikh RN - 08/13/2023 7:51 AM EDT Images from the original note were not included. Care Management Progress Note Patient remains on H6 s/p removal of hardware lami fusion 08/09/2023. Reg diet noted. PT/OT following, recommending snf. Hgb 7.8, trending. Discharge plan is [facility]. TCC to assist and follow as needed. Discharge Milestones and Delays Expected Date/Time: 08/13/2023 Disposition: Long-Term Facility Transport status: No current request Discharge [...] Stay (Days): 4 GMLOS: No GMLOS Documented [facility] [id number] Note* Care Coordination - Bre Parikh RN - 08/13/2023 7:51 AM EDT Images from the original note were not included. Care Management Progress Note Patient remains on H6 s/p removal of hardware lami fusion 08/09/2023. Reg diet noted. PT/OT following, recommending snf. Hgb 7.8, trending. Discharge plan is [facility]. TCC to assist and follow as needed. Discharge Milestones and Delays Expected Date/Time: 08/13/2023 Disposition: Long-Term Facility Transport status: No current request Discharge [...] Stay (Days): 4 GMLOS: No GMLOS Documented [facility] [id number] NoteCare Management Progress Note Patient remains on H6 s/p removal of hardware lami fusion 08/09/2023. Reg diet noted. PT/OT following, recommending snf. Hgb 7.8, trending. Discharge plan is [facility]. TCC to assist and follow as needed. Discharge Milestones and Delays Expected Date/Time: 08/13/2023 Disposition: Long-Term Facility Transport status: No current request Discharge [...] of Stay (Days): 4 GMLOS: No GMLOS [facility]ed[facility] [id number] Plan of care note* Care Plan - [...] integrity is maintained or improved Outcome: Progressing [facility] [id number] NoteHospitalist Progress Note 08/12/2023 Assessment/Plan: Data: (CAT1) [...] Psychiatric: Mood and Aff (more content not included)...[facility] [id number] NoteOrthopaedic Spine Progress Note Name: Alfie Hogan [...] of hematoma. Tomas Davidson MD 08/12/2023 11:42 [facility]03-10-2024 Note* Care Coordination - Johanna Carty RN - 08/12/2023 8:41 AM EDT TCC tasked to follow over the weekend. Auth remains pending. TCC to continue to follow and assist prn. [facility] [id number] Note* Care Coordination - Johanna Carty RN - 08/12/2023 8:41 AM EDT TCC tasked to follow over the weekend. Auth remains pending. TCC to continue to follow and assist prn. [facility] [id number] NoteOCCUPATIONAL THERAPY [facility] Initial Evaluation Name/MRN: Kayce Hogan ([id number]) Evaluation Date: 08/12/2023 Date of : 1960 Admission Date: 08/09/2023 7:14 AM Age: 62 y.o. Room/Bed: -6105/H-6105 A Discharge Recommendation: Long-Term Facility Equipment Needed: (continue to assess) Assessment [...] disease (COVID-19) Alcohol dependence with uncomplicated withdrawal ([facility]) 07/07/2020 Allergic Anxiety Arthritis Asthma Bronchiectasis ([facility]) COPD exacerbation ([facility]) 10/24/2019 Depression Diaphragm paralysis Diastolic heart failure ([facility]) Dizziness 11/09/2020 Dvt femoral (deep venous thrombosis) ([facility]) right...was on blood thinners after broken ankle have been off thinners for a few years Fall 11/21/2020 GERD (gastroesophageal reflux disease) Hypertension Kidney disease Kidney failure 01/09/2019 Kidney stone Obesity Oxygen decrease Currently on Home oxygen, uses with exertion Pulmonary hypertension (HCC) Pulmonary hypertension ([facility]) Weakness 11/21/2020 Past Surgical History: Past Surgical [...] of major depressive disorder without prior episode ([facility]) 08/26/2020 Anxiety 08/26/2020 Diaphragm dysfunction 07/27/2020 Unspecified mood (affective) disorder ([facility]) 07/09/2020 Edema of lower extremity 05/10/2020 Stage [...] - Following commands: foll (more content not included)...[facility] 08-12-2023 Plan of care note* Care Plan - Gisela Lucas RN - 08/12/2023 5:41 AM EDT Problem: Pain - Adult Goal: Verbalizes/displays adequate comfort level or baseline comfort level Outcome: Progressing Problem: Chronic Conditions and Co-morbidities Goal: Patient's chronic conditions and co-morbidity symptoms are monitored and maintained or improved Outcome: Progressing [facility] [id number] [facility] Respiratory Care Department Progress Note Comment or [...] Respiratory in the care of this patient, [facility]03-09-2024 NoteBrief Orthopaedic Surgery Progress Note Examined patient [...] in 2 weeks -Ortho primary team. -Dispo: [facility] Samantha Oliver MD PGY-2 Orthopaedic Surgery 08/11/2023 7:53 [facility] [id number] NoteHospitalist Progress Note 08/11/2023 Assessment/Plan: Data: (CAT1) [...] Date: 08/09/2023 PCP: Bernardino Moran MD Room#: H-7631/H-8982 A Brief Hospital course: Patient is a [...] patch, Topical, Daily mometasone-formoter (more content not included)...[facility] 08-11-2023 Note* Care Coordination - Johanna Carty RN - 08/11/2023 9:34 AM EST TCC tasked to follow this patient over the weekend. Auth started at [facility]. Message sent to facility regarding auth status. Awaiting response. TCC to continue to follow. [facility]03-09-2024 Note* Care Coordination - Johanna Carty RN - 08/11/2023 9:34 AM EST TCC tasked to follow this patient over the weekend. Auth started at [facility]. Message sent to facility regarding auth status. Awaiting response. TCC to continue to follow. [facility]03-09-2024 NoteOrthopaedic Spine Progress Note Name: Alfie Hogan [...] canister [75cc] Tomas Davidson MD 08/11/2023 9:21 [facility]03-08-2024 [facility] Respiratory Care Department Progress Note Comment or [...] Respiratory in the care of this patient, [facility]03-08-2024 Consult note* Brooke Rhodes APRN - [place] [...] (last filled Jul 27, 2023) Prescriber: Corin Mraiscal MD ([facility] [place]) Reports having been thru several treatment programs in [place], but unable to cite when/where. Reports attending AA Meetings I hated them; Reports frequent online Meeting participation. NO MAT She continued to cry expressing concern over being stigmatized. PMH: obesity, HTN, CKD, pulmonary hypertension requiring BiPAP, diastolic HF, bronchiectasis, s/p COVID in early 2019 PSYCH: Depression/anxiety r/t chronic alcoholism & consequences CRITICAL CARE NURSE SPECIALIST Meds: Coreg, dulera, protonix, crestor, albuterol prozac, [...] APRN LICDC To reach me, Page to [phone] with call back number [facility]03-08-2024 NoteADDICTION TEAM CONSULTATION THURSDAY, AUGUST 10, 2023 [...] Jul 27, 2023) Prescriber: Corin Mariscal MD ([facility] [place]) Reports having been thru several treatment programs in [place], but unable to cite when/where. Reports attending AA Meetings I hated them; Reports frequent online Meeting participation. NO MAT She continued to cry expressing concern over being stigmatized. PMH: obesity, HTN, CKD, pulmonary hypertension requiring BiPAP, diastolic HF, bronchiectasis, s/p COVID in early 2019 PSYCH: Depression/anxiety r/t chronic alcoholism & consequences CRITICAL CARE NURSE SPECIALIST Meds: Coreg, dulera, protonix, crestor, albuterol prozac, [...] that is needed. Brooke Rhodes DNP, APRN [facility] To reach me, Page to [phone] with call back [facility] 08-10-2023 Consult note* Brooke Rhodes APRN - SPRAY PAINTER - 08/10/2023 4:35 PM EST Associated Order(s): [...] Jul 27, 2023) Prescriber: Corin Mariscal MD ([facility] [place]) Reports having been thru several treatment programs in [place], but unable to cite when/where. Reports attending AA Meetings I hated them; Reports frequent online Meeting participation. NO MAT She continued to cry expressing concern over being stigmatized. PMH: obesity, HTN, CKD, pulmonary hypertension requiring BiPAP, diastolic HF, bronchiectasis, s/p COVID in early 2019 PSYCH: Depression/anxiety r/t chronic alcoholism & consequences CRITICAL CARE NURSE SPECIALIST Meds: Coreg, dulera, protonix, crestor, albuterol prozac, [...] APRN LICDC To reach me, Page to [phone] with call back number * SUZY Valdivia CNP - 08/10/2023 10:26 AM ESTAssociated Order(s): IP CONSULT TO ANESTHESIOLOGY - ACUTE PAIN SERVICE Images from the original note were not included. PAGING: The Acute Pain Service providers are available exclusively via [employer]. APS does not utilize pagers. [...] disease (COVID-19) Alcohol dependence with uncomplicated withdrawal ([facility]) 07/07/2020 Allergic Anxiety Arthritis Asthma Bronchiectasis ([facility]) COPD exacerbation ([facility]) 10/24/2019 Depression Diaphragm paralysis Diastolic heart failure ([facility]) Dizziness 11/09/2020 Dvt femoral (deep venous thrombosis) ([facility]) right...was on blood thinners after broken ankle have been off thinners for a few years Fall 11/21/2020 GERD (gastroesophageal reflux disease) Hypertension Kidney disease Kidney failure 01/09/2019 Kidney stone Obesity Oxygen decrease Currently on Home oxygen, uses with exertion Pulmonary hypertension (HCC) Pulmonary hypertension ([facility]) Weakness 11/21/2020 Past Surgical History: Procedure Laterality [...] Pain Service providers are available exclusively via [employer]. APS does not utilize pagers. * Tessie Polanco MD - 08/09/2023 6:20 PM ESTAssociated Order(s): IP CONSULT TO HOSPITALIST Images from the original note were not included. Hospital Medicine Consult Patient - Alfie Hogan, Age - 62 y.o. - 1960 Room Number - @ROOMBEDREFRESH@ Consulting - Brandon Bean MD Primary Care Physician - Bernardino Moran MD [facility] # - [id number] Date of Admission - 08/09/2023 7:14 AM [...] (HCC) 07/07/2020 Allergic Anxiety Arthritis Asthma Bronchiectasis ([facility]) COPD exacerbation ([facility]) 10/24/2019 Depression Diaphragm paralysis Diastolic heart failure ([facility]) Dizziness 11/09/2020 Dvt femoral (deep venous thrombosis) ([facility]) right...was on blood thinners after broken ankle [...] 50 mL/hr, Last Rate: 50 mL/hr (08/09/23 9943) PRN medications: albuterol, HYDROmorphone OR HYDROmorphone, naloxone, [...] - ACUTE PAIN SERVICE Inpatient consult to Hospitalist--[facility] MEDICINE OT eval and treat PT eval and treat Initiate Oxygen Therapy Protocol Admit to inpatient CAUTI Precautions Thank you for allowing us to participate in the care and management of this patient. NOTE: This report was transcribed using voice recognition software. Every effort was made to ensureaccuracy; however, inadvertent computerized gear shaper set up operator errors may be present. TESSIE POLANCO MD, Division of Hospitalist Medicine [facility] documented in this [facility]03-08-2024 NoteRefer to today's Consultation Note [facility] Note* Care Coordination - Bre Parikh RN - 08/10/2023 2:43 PM EST [facility] is able to accept patient, auth started. Weekend TCC tasked to follow. TCCto assist and follow as needed. [facility] [id number] Note* Care Coordination - Bre Parikh RN - 08/10/2023 2:43 PM EST [facility] is able to accept patient, auth started. Weekend TCC tasked to follow. TCCto assist and follow as needed. [facility] [id number] Note* Addendum Note - SUZY Valdivia CNP - 08/10/2023 1:19 PM EST Addendum created 08/10/23 131 by SUZY Valdivia CNP Clinical Note Signed, SmartForm saved [facility] Phone: 1(454) 702-448803-08-2024 Note* Addendum Note - SUZY Valdivia CNP - 08/10/2023 1:19 PM EST Addendum created 08/10/23 131 by SUZY Valdivia CNP Clinical Note Signed, SmartForm saved [facility] Phone: 1(193) 319-737603-08-2024 NoteAddendum created 08/10/23 131 by SUZY Valdivia CNP Clinical Note Signed, [facility]03-08-2024 Miscellaneous Notes* Addendum Note - SUZY Valdivia CNP - 08/10/2023 1:19 PM EST Addendum created 08/10/23 131 by SUZY Valdivia CNP Clinical Note Signed, SmartForm saved * Addendum Note - SUZY Valdivia CNP - 08/10/2023 10:54 AM EST Addendum created 08/10/23 105 by SUZY Valdivia CNP Pend clinical note documented in this [facility]03-08-2024 NoteNOTE: This result is for medical treatment only. Analysis performed using non-forensic procedures. [facility] [id number] Note* Care Coordination - Bre Parikh RN - 08/10/2023 12:52 PM EST Care Managment Initial Assessment Date: 08/10/2023 Patient Name: Alfie Hogan : 1960 Patient Information Source of Information: Patient Cognition/Language: WFL - Within Functional Limits Permission given to speak with patient claim service representative/caregiver as indicated: Yes Confirmation of Payer with patient/family: Yes Payer Name: [employer] Complete [place]: No Confirmation of Primary Care Physician: Confirmed [...] be discharged to: SNF Discharge Planning Actions: Long-Term Facility referral indicated, Continue to follow [place] of choice: [place] of choice discussed Patient's Choice Rights and [...] [facility] and [facility] IT BUSINESS PROCESS ARCHITECT tasked to make referrals. Patient is tearful throughout visit. Discharge plan is snf. TCC to assist and follow as needed. '' Bre Parikh RN [facility] HospitalKohbqq78-30-4153 Note* Care Coordination - Bre Parikh RN - 08/10/2023 12:52 PM EST Care Managment Initial Assessment Date: 08/10/2023 Patient Name: Alfie Hogan : 1960 Patient Information Source of Information: Patient Cognition/Language: WFL - Within Functional Limits Permission given to speak with patient claim service representative/caregiver as indicated: Yes Confirmation of Payer with patient/family: Yes Payer Name: [employer] Complete : No Confirmation of Primary Care [...] be discharged to: SNF Discharge Planning Actions: Long-Term Facility referral indicated, Continue to follow [place] of choice: [place] of choice discussed Patient's Choice Rights and [...] go to a snf, first choice is [facility] and the second [facility]. IT BUSINESS PROCESS ARCHITECT tasked to make referrals. Patient is tearful throughout visit. Discharge plan is snf. TCC to assist and follow as needed. '' Bre Parikh RN [facility] [id number] NoteHospitalist Progress Note 08/10/2023 Assessment/Plan: Data: (CAT1) [...] BID No emergency con (more content not included)...[facility]03-08-2024 Note* Care Coordination - Logan Maurer - 08/10/2023 11:25 AM EST Referral placed to [facility] ( healthy living) via [facility] per [facility] request. Await review and response regarding ability to accept. TCC notified. [facility]03-08-2024 Note* Care Coordination - Logan Maurer - 08/10/2023 11:25 AM EST Referral placed to [facility] ( [facility]) via [facility] per TCC request. Await review and response regarding ability to accept. TCC notified. [facility]03-08-2024 NoteReferral placed to [facility] ( [facility]) via [facility] per TCC request. Await review and response regarding ability to accept. TCC notified. [facility]03-08-2024 Note* Addendum Note - SUZY Valdivia CNP - 08/10/2023 10:54 AM EST Addendum created 08/10/23 105 by SUZY Valdivia CNP Pend clinical note [facility]03-08-2024 Note* Addendum Note - SUZY Valdivia CNP - 08/10/2023 10:54 AM EST Addendum created 08/10/23 105 by SUZY Valdivia CNP Pend clinical note [facility]03-08-2024 NoteAddendum created 08/10/23 105 by SUZY Valdivia CNP Pend clinical [facility]03-08-2024 NotePHYSICAL THERAPY [facility] Initial Evaluation Name/MRN: Kayce Hogan ([id number]) Evaluation Date: 08/10/2023 Date of : 1960 Admission Date: 08/09/2023 7:14 AM Age: 62 y.o. Room/Bed: H-6105/H-6105 A Discharge Recommendation: Long-Term Facility Equipment Needed: No Assessment IMPRESSION: Pt [...] (HCC) 07/07/2020 Allergic Anxiety Arthritis Asthma Bronchiectasis ([facility]) COPD exacerbation ([facility]) 10/24/2019 Depression Diaphragm paralysis Diastolic heart failure (HCC) Dizziness 11/09/2020 Dvt femoral (deep venous thrombosis) ([facility]) right...was on blood thinners after broken ankle [...] with other underlying disease with behavioral disturbance ([facility]) 12/06/2021 Other pancytopenia (CMS/HCC) (HCC) 12/06/2021 Hypertensive heart and chronic kidney disease with heart failure and stage 1 through stage 4 chronic kidney disease, or unspecified chronic kidney disease ([facility]) 12/06/2021 Bimalleolar fracture 12/06/2021 Forgetfulness 12/06/2021 Closed fracture of proximal phalanx of toe of left foot 12/06/2021 Personal history of COVID-19 12/06/2021 Postoperative complication 12/06/2021 Subluxation of right ankle joint 12/06/2021 Morbid (severe) obesity due to excess calories ([facility]) 12/06/2021 Ulcerative colitis, unspecified, without complications ([facility]) 12/06/2021 Tremor 11/21/2020 Hypokalemia 08/26/2020 Chronic hypoxemic respiratory failure ([facility]) 08/26/2020 GERD (gastroesophageal reflux disease) 08/26/2020 GENNARO (obstructive sleep apnea) 08/26/2020 Essential hypertension 08/26/2020 Hyperlipidemia 08/26/2020 Current moderate episode of major depressive disorder without prior episode ([facility]) 08/26/2020 Anxiety 08/26/2020 Diaphragm dysfunction 07/27/2020 Unspecified mood (affective) disorder ([facility]) 07/09/2020 Edema of lower extremity 05/10/2020 Stage [...] Precautions/Restrictions: Other Position/Activity Restriction: (more content not included)...[facility]03-08-2024 Consult note* Leticia Hector APRN - SPRAY PAINTER - 08/10/2023 10:26 AM ESTAssociated Order(s): IP CONSULT TO ANESTHESIOLOGY - ACUTE PAIN SERVICE Images from the original note were not included. PAGING: The Acute Pain Service providers are available exclusively via [employer] SECURE CHAT. [facility] does not utilize pagers. 08/10/2023 Lab Results [...] Pain Service providers are available exclusively via [employer]. [facility] does not utilize pagers. [employer] Work Phone: [phone]) 731-660403-08-2024 NoteOrthopaedic Spine Progress Note Name: Alfie Hogan [...] in canister Samantha Oliver MD 08/10/2023 11:47 [facility] [id number] Consult note* Tessie Polanco MD - 08/09/2023 6:20 PM ESTAssociated Order(s): IP CONSULT TO HOSPITALIST Images from the original note were not included. Hospital Medicine Consult Patient - Alfie Hogan, Age - 62 y.o. - 1960 Room Number - @ROOMBEDREFRESH@ Consulting - Brandon Bean MD Primary Care Physician - Bernardino [phone] Date of Admission - 08/09/2023 7:14 AM [...] - ACUTE PAIN SERVICE Inpatient consult to Hospitalist--[facility] MEDICINE OT eval and treat PT eval and treat Initiate Oxygen Therapy Protocol Admit to inpatient CAUTI Precautions Thank you for allowing us to participate in the care and management of this patient. NOTE: This report was transcribed using voice recognition software. Every effort was made to ensureaccuracy; however, inadvertent computerized gear shaper set up operator errors may be present. TESSIE POLANCO MD, MD Division of Hospitalist Medicine [facility] [employer] Phone: [phone] NotePatient Name: Alfie Hogan Date of : [...] scheduled. Signed: Caroline Downey MD 08/14/2023 4:04 [facility] [id number] NotePatient: Kayce Hogan Procedure Summary Date: 08/09/23 Room / Location: [address] Operating Room Anesthesia Start: 943 Anesthesia [...] discharged once all PACU criteria has been met.[facility] [id number] NotePatient: Kayce Hogan Procedure Summary Date: 08/09/23 Room / Location: [address] Operating Room Anesthesia Start: 943 Anesthesia [...] start time until discharged from PACU ([id number]) [facility] Anesthesiology Smoking Abstinence The patient is [...] Allowed opportunity for questions and acknowledgement of understanding.[facility]03-07-2024 Hospital Discharge instructions* Discharge Instructions* Caroline Downey [...] assistance Toileting Minimal assistance Feeding Minimal assistance President Celebrity Acquistion Minimal assistance Med Delivery yes Wound Care [...] sent with patient): glasses and cell phone, gas charger, 2 belonging bags with misc items, efraín MONTES SIGNATURE: MANAGEMENT/SOCIAL WORK SECTION Inpatient Status Date: 08/09/2023 Readmission Risk Assessment Score: @[email or web address]@ Discharging to Facility/ Agency Name: [facility] Address: [address] [place], [place] [address] [address] Fax: Dialysis Facility (if applicable) Name: Address: Dialysis Schedule: Phone: Fax: Digital Media Intern/Stitcher Around signature: ICIAN SECTION Prognosis: good Condition at Discharge: stable Rehab Potential (if transferring to Rehab): good Recommended Labs or Other Treatments After Discharge: n/a Physician Certification: I certify the above information and transfer of Alfie Hogan is necessary for the continuing treatment of the diagnosis listed and that she requires long-term facility for less than 30 days. Update Admission H&P: No change in H&P PHYSICIAN SIGNATURE: documented in this [facility]03-07-2024 NotePeripheral IV Date/Time: 08/09/2023 10:30 AM Placement Needle size: 18 G Laterality: right Location: forearm Local anesthetic: none Site prep: alcohol Technique: anatomical landmarks Attempts: [address] [place], [place] 6838203-07-2024 NoteAirway Date/Time: 08/09/2023 9:52 AM Urgency: scheduled Airway not difficult General Information and Staff Patient location during procedure: Procedural Resident/ELECTRICAL MECHANICAL TECHNICIAN: Eunice Holbrook APRN - VIVIAN Performed: SRNA Indications and Patient Condition Indications for airway management: anesthesia Sedation level: Asleep Preoxygenated: yes Patient position: sniffing MILS maintained throughout Mask difficulty assessment: 1 - vent by mask Final Airway Details Final airway type: endotracheal airway Successful airway: ETT Cuffed: yes Successful intubation technique: video laryngoscopy Facilitating devices/methods: intubating stylet Blade: [place] scope Blade size: #3 ETT size (mm): 7.0 Cormack-Lehane Classification: grade I - full view of glottis Placement verified by: capnometry Measured from: lips ETT to lips (cm): 20 Number of attempts at approach: [address] [place], [place] [id number] Note Peripheral IV Date/Time: 08/09/2023 10:14 AM Placement Needle size: 18 G Laterality: right Location: forearm Local anesthetic: none Site prep: alcohol Technique: anatomical landmarks Attempts: [address] [place], [place] 6838[address]-07-2024 Note* Op Note - Brandon Bean MD [...] out Kerrisons. This decompressing the bilateral exiting T5nunrx roots which were free. At this point [...] and soha for skin. End of dictation [email or web address] Phone: [phone] Note* Op Note - Brandon Bean MD [...] out Kerrisons. This decompressing the bilateral exiting M7zafgi roots which were free. At this point [...] and soha for skin. 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 We discussed both [...] comfortable providing informed consent for the procedure. 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 We discussed both [...] comfortable providing informed consent for the procedure. 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 We discussed both [...] Procedure: REMOVAL HARDWARE LUMBAR3/4/5, LAMINECTOMY LUMBAR2, FUSION OIFNSZDP03- LUMBAR3, INSTRUMENTATION [id number], ALLOGRAFT, BONE MORPHOGENETIC PROTEIN (Spine Lumbar) Location: [address] Operating Room Surgeons: Brandon Bean MD [...] physicaltherapy about 8 months ago at [facility] without relief. She has seen pain management and obtained injections in the past, but nothing recent. She was evaluated 5 years ago for a Spinal cord stimulator, but was unable to due to scar tissue. She notes nothing helps her pain and is taking an excessive amount of Aleve a day. ? 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 No date: Diastolic heart failure ([facility]) 11/09/2020: Dizziness No date: Dvt femoral (deep venous thrombosis) ([facility]) Comment: right...was on blood thinners after broken ankle have been off thinners for a few years 11/21/2020: Fall No date: GERD (gastroesophageal reflux disease) No date: Hypertension No date: Kidney disease 01/09/2019: Kidney failure No date: Kidney stone No date: Obesity No date: Oxygen decrease Comment: Currently on Home oxygen, uses with exertion No date: No date: Pulmonary hypertension ([facility]) No date: Pulmonary hypertension ([facility]) 11/21/2020: Weakness Past Surgical History: Past Surgical [...] EVERY MORNING AND INHALE 2 PUFFS EVERY KUINEIR12/4/23 Yes Bernardino Moran MD NON FORMULARY Bipap [...] QT Interval 409 QTC Interval 456 P Austell 32 QRS Austell 45 T Wave Austell 3 DE Interval 176 Impression Sinus rhythm Right bundle [...] 08/02/2023 at 11:56 AM documented in this [facility]02-29-2024 NotePatient: Kayce Hogan Procedure Information Date/Time: 08/09/23929 Procedure: REMOVAL HARDWARE LUMBAR3/4/5, LAMINECTOMY LUMBAR2, FUSION [id number], INSTRUMENTATION [id number], ALLOGRAFT, BONE MORPHOGENETIC PROTEIN (Spine Lumbar) Location: [address] Operating Room Surgeons: Brandon Bean MD Past Medical History: Past Medical History: No date: 2018 novel coronavirus disease (COVID-19) 07/07/2020: Alcohol dependence with uncomplicated withdrawal ([facility]) No date: Allergic No date: Anxiety No date: Arthritis No date: Asthma No date: Bronchiectasis ([facility]) 10/24/2019: COPD exacerbation ([facility]) No date: Depression 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 No date: Diastolic heart failure ([facility]) 11/09/2020: Dizziness No date: Dvt femoral (deep venous thrombosis) ([facility]) Comment: right...was on blood thinners after broken ankle have been off thinners for a few years 11/21/2020: Fall No date: GERD (gastroesophageal reflux disease) No date: Hypertension No date: Kidney disease 01/09/2019: Kidney failure No date: Kidney stone No date: Obesity No date: Oxygen decrease Comment: Currently on Home oxygen, uses with exertion No date: No date: Pulmonary hypertension ([facility]) No date: Pulmonary hypertension ([facility]) 11/21/2020: Weakness Past Surgical History: Past Surgical [...] videoscope for her procedure and updated the hide mill man in the room. ERAS Type General ERAS [...] incomplete. Impression Sinus rhythm Right bundle branch [facility]SAscension [facility] History and physical note* MARKIE Torres - 08/02/2023 11:00 AM EST Images from the original note were not included. Comprehensive Pre Surgical History and Physical ? Name: Alfie Hogan : 1960 (Age-62 y.o.) Date of Service: Pt seen/examined on 08/02/2023 Procedure Information Date/Time: 08/09/23 0930 Procedure: REMOVAL HARDWARE LUMBAR3/4/5, LAMINECTOMY LUMBAR2, FUSION DBIGORWQ89- LUMBAR3, INSTRUMENTATION [id number], ALLOGRAFT, BONE MORPHOGENETIC PROTEIN (Spine Lumbar) Location: [facility] OR [address] [place] [address] Operating Room Surgeons: Brandon Bean MD Chief [...] Aleve a day. ? 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 Name: Alfie Hogan : 1960 (Age-62 y.o.) Date of Service: Pt seen/examined on 08/02/2023 Procedure Information Date/Time: 08/09/23 0930 Procedure: REMOVAL HARDWARE LUMBAR3/4/5, LAMINECTOMY LUMBAR2, FUSION [id number], INSTRUMENTATION [id number], ALLOGRAFT, BONE MORPHOGENETIC PROTEIN (Spine Lumbar) Location: [facility] OR [address] [place] [address] Operating Room Surgeons: Brandon Bean MD Chief [...] Aleve a day. ? Denies history of [place], CAD, TIA, CVA Past Medical History: Past Medical History: No date: 2019 novel coronavirus disease (COVID-19) 07/07/2020: Alcohol dependence with uncomplicated withdrawal (HCC) No date: Allergic No date: Anxiety No date: Arthritis (more content not included)...[facility] [id number] Note Comprehensive Pre Surgical History and Physical ? Name: Alfie Hogan : 1960 (Age-62 y.o.) Date of Service: Pt seen/examined on 08/02/2023 Procedure Information Date/Time: 08/09/23 0930 Procedure: REMOVAL HARDWARE LUMBAR3/4/5, LAMINECTOMY LUMBAR2, FUSION [id number], INSTRUMENTATION [id number], ALLOGRAFT, BONE MORPHOGENETIC PROTEIN (Spine Lumbar) Location: [facility] OR [address] [place] [address] Operating Room Surgeons: Brandon Bean MD Chief Complaint: Scoliosis, unspecified [M41.9] Spinal stenosis, lumbar region without neurogenic claudication [M48.061] ASSESSMENT/PLAN: Patient is considered high risk for this intermediate level 3 risk procedure/surgery. 1) Scoliosis, unspecified [M41.9] Spinal stenosis, lumbar region without neurogenic claudication [M48.061] - Managed per surgery - 06/18/23 CBC, CMP, Vit D reviewed - Ordered per [facility] Protocol - EKG, PT/INR, A1c, prealbumin, [...] Testing Visit Labs Ordered: YES - PER [facility] PROTOCOL Sleep Referral Ordered: NO - [...] Aleve a day. ? Denies history of [place], CAD, TIA, CVA Past Medical History: Past Medical History: No date: 2019 novel coronavirus disease (COVID-19) 07/07/2020: Alcohol dependence with uncomplicated withdrawal (HCC) No date: Allergic No date: Anxiety No date: Arthritis (more content not included)...[facility]02-02-2024 Miscellaneous Notes* Addendum Note - Amy Ross [...] Eliquis Please review and advise Prisca Bell [place] to Dr. Ross, Josephine Lucas PA-C, Workers Compensation [facility] P: [id number] / F: [phone] / [email or web address] documented in this encounterSycamore Medical Center02-01-2024 NoteHNO ID: [id number] Author: ANNIKA COLLADO MD, PhD Service: ? Author Type: Physician Type: Progress Notes Filed: 07/05/2023 14:01 Note Text: NEUROSURGERY CONSULT NOTE Annika Collado MD, PhD Date of visit: July 05, 2023 Patient Name: Ms.Kimberly Karli Hogan Date of : 1960 Current Age: [age] year old Sex: female MRN/E# [id number] Chief Complaint: No chief complaint on file. [...] FLX DX W/COLLJ SPEC WHEN PFRMD 09/15/2005 [facility] Colonoscopy EGD TRANSORAL BIOPSY SINGLE/MULTIPLE 08/30/06 [...] (241.3 mg magnesium) tablet (more content not included)...[facility]02-01-2024 History of Present illness Narrative* Annika Collado MD, PhD - 07/05/2023 10:30 AM EST Images from the original note were not included. NEUROSURGERY CONSULT NOTE Annika Collado MD, PhD Date of visit: July 05, 2023 Patient Name: Ms.Kimberly Karli Hogan Date of : 1960 Current Age: [age] year old Sex: female MRN/E# [id number] Chief Complaint: No chief complaint on file. [...] with physicaltherapy about 8 months ago at [facility] without relief. She has seen pain management [...] FLX DX W/COLLJ SPEC WHEN PFRMD 09/15/2005 [facility] Colonoscopy EGD TRANSORAL BIOPSY SINGLE/MULTIPLE 08/30/06 [...] 5 5 Wrist extension 5 5 Finger flexion/automatic log cut off sawyer 5 5 Lower Extremity Right Left Hip [...] PhD This note was partially generated using aaTag voice recognition system, and there may be some incorrect words, spellings, and punctuation that were not noted in checking the note before saving. documented in this encounterSycamore Medical Center01-25-2024 Telephone encounter Note * Telephone Encounter - Shilpa Laurent - 06/28/2023 12:26 PM EST Prescription Request: Last medication check: 02/15/23 Last physical exam: 11/26/20 Next scheduled appointment: na Last date of refill on this medication 03/09/[address] [facility] [address] [id number] Miscellaneous Notes* Telephone Encounter - Shilpa Laurent - 06/28/2023 12:26 PM EST Prescription Request: Last medication check: 02/15/23 Last physical exam: 11/26/20 Next scheduled appointment: na Last date of refill on this medication 03/09/23 documented in this encounterSPomerene [id number] Telephone encounter Note* Telephone Encounter - SUZY Barrera CNP - 05/07/2023 4:02 PM EST Rx sent. Follow up as scheduled. [facility] [id number] Miscellaneous Notes* Telephone Encounter - SUZY Barrera CNP - 05/07/2023 4:02 PM EST Rx sent. Follow up as scheduled. * Telephone Encounter - Bertha Booth - 05/07/2023 10:54 AM EST Prescription Request: Last medication check: 02-15-23 Last physical exam: 11-26-20 Next scheduled appointment: 06-13-23 Last date of refill on this medication 04-09-23 documented in this encounterSPomerene [id number] Telephone encounter Note* Telephone Encounter - Bertha Booth - 05/07/2023 10:54 AM EST Prescription Request: Last medication check: 02-15-23 Last physical exam: 11-26-20 Next scheduled appointment: 06-13-23 Last date of refill on this medication 04-09-[address] [facility] HospitalDevuhp05-02-4852 Telephone encounter Note* Telephone Encounter - SUZY Barrera CNP - 04/16/2023 1:44 PM EST Rx sent. Follow up as scheduled. [facility] HospitalPmikcu96-34-2849 Miscellaneous Notes* Telephone Encounter - SUZY Barrera CNP - 04/16/2023 1:44 PM EST Rx sent. Follow up as scheduled. * Telephone Encounter - Bassam Zepeda LPN - 04/16/2023 8:00 AM EST Prescription Request: Last medication check: 02/15/23 Last physical exam: 6/25/21 Next scheduled appointment: 06/13/23 Last date of refill on this medication 10/31/22 #180 1 refill documented in this [facility]11-13-2023 Telephone encounter Note* Telephone Encounter - Bassam Zepeda LPN - 04/16/2023 8:00 AM EST Prescription Request: Last medication check: 02/15/23 Last physical exam: 11/26/20 Next scheduled appointment: 06/13/23 Last date of refill on this medication 10/31/22 #[address] [facility] [id number] Telephone encounter Note* Telephone Encounter - Debbie Andrews MA - 03/19/2023 8:43 AM EDT Prescription Request: Last medication check: 02/15/23 Last physical exam: none Next scheduled appointment: 06/13/23 Last date of refill on this medication 10/09/22 [place] [id number] Miscellaneous Notes* Telephone Encounter - Debbie Andrews MA - 03/19/2023 8:43 AM EDT Prescription Request: Last medication check: 02/15/23 Last physical exam: none Next scheduled appointment: 06/13/23 Last date of refill on this medication 10/09/22 documented in this [facility]10-10-2023 Telephone encounter Note* Telephone Encounter - SUZY Bush CNP - 03/13/2023 5:37 PM EDT Reviewed chart. Refill appropriate. RX sent. [place] [id number] Miscellaneous Notes* Telephone Encounter - SUZY Bush CNP - 03/13/2023 5:37 PM EDT Reviewed chart. Refill appropriate. RX sent. * Telephone Encounter - Debbie Andrews MA - 03/13/2023 11:22 AM EDT Prescription Request: Last medication check: 02/15/23 Last physical exam: none Next scheduled appointment: 06/13/23 Last date of refill on this medication 02/19/23 documented in this encounterSPomerene HospitalSbcpnk07-82-4289 Telephone encounter Note* Telephone Encounter - Debbie Andrews MA - 03/13/2023 11:22 AM EDT Prescription Request: Last medication check: 02/15/23 Last physical exam: none Next scheduled appointment: 06/13/23 Last date of refill on this medication 02/19/[address] [facility] [facility] HospitalTjoicq80-00-5109 Telephone encounter Note* Telephone Encounter - Bernardino Moran MD - 03/12/2023 5:44 AM EDT Okay, thank you [facility] HospitalJslmkl57-10-9267 Miscellaneous Notes* Telephone Encounter - Bernardino Moran [...] pharmacy verified - Emilee Gamez. Paged provider client support professional via secure chat - Yessi Silver CNP Verbal order given to [facility] nurse for zofran 4 mg #12, [...] Reason for Disposition Unexplained nausea Protocols used: Zrvyrz-[id number]-RV documented in this [facility]10-06-2023 Telephone encounter Note* Telephone Encounter - Kim Cason RN - 03/09/2023 2:00 PM EDT S: Patient spoke with [facility] nurse regarding nausea B: Onset of [...] - [facility] in [place]. Paged provider client support professional via secure chat - Yessi Silver CNP Verbal order given to [facility] nurse for zofran 4 mg #12, [...] Reason for Disposition Unexplained nausea Protocols used: Esmcup-HLPUD-OZ [facility] HospitalPsdvuy31-19-5361 Miscellaneous Notes* Telephone Encounter - Kim Cason RN - 03/09/2023 2:00 PM EDT S: Patient spoke with [facility] nurse regarding nausea B: Onset of [...] and pharmacy verified - [facility] in [place]. Paged provider client support professional via secure chat - Yessi Silver CNP Verbal order given to [facility] nurse for zofran 4 mg #12, [...] Reason for Disposition Unexplained nausea Protocols used: Fwnsde-OABYZ-QN documented in this [facility] [facility] Telephone encounter Note* Telephone Encounter - SUZY Bush CNP - 03/09/2023 11:56 AM EDT Reviewed chart. Refill appropriate. RX sent. [facility] HospitalZfkbfu61-37-5948 Miscellaneous Notes* Telephone Encounter - SUZY Bush [...] up the medication: N/A documented in this [facility]10-06-2023 Telephone encounter Note* Telephone Encounter - [...] prior to picking up the medication: N/A [facility] HospitalGplltt76-72-6233 Telephone encounter Note* Telephone Encounter - Nicole Gongora MA - 02/19/2023 10:15 AM EDT Prescription Request: Last medication check: 02/15/23 Last physical exam: none Next scheduled appointment: 06/13/23 Last date of refill on this medication 01/22/[address] [facility] HospitalIbdnau79-86-5002 Miscellaneous Notes* Telephone Encounter - Nicole Gongora MA - 02/19/2023 10:15 AM EDT Prescription Request: Last medication check: 02/15/23 Last physical exam: none Next scheduled appointment: 06/13/23 Last date of refill on this medication 01/22/23 30 days documented in this encounterSPomerene HospitalChainu10-07-3088 Evaluation + Plan note* Assessment & Plan Note - Bernardino Moran MD - 02/15/2023 3:57 PM EDT Associated Problem(s): Hyperlipidemia Controlled, continue rosuvastatin 40 mg daily [place] [id number] Evaluation + Plan note* Assessment & Plan Note - Bernardino Moran MD - 02/15/2023 3:57 PM EDTAssociated Problem(s): Current moderate episode of major depressive disorder without prior episode (HCC) Partial remission, continue Prozac [address] [facility] [facility] HospitalWvwsjf86-51-9565 Miscellaneous Notes* Assessment & Plan Note - [...] trazodone 150 mg nightly documented in this [facility]09-14-2023 Evaluation + Plan note* Assessment & Plan Note - Bernardino Moran MD - 02/15/2023 3:56 PM EDT Associated Problem(s): Ataxia PT referral for strengthening and balance [facility] HospitalBamurm35-48-3873 NotePT [facility] Evaluation + Plan note* Assessment & Plan Note - Bernardino Moran MD - 02/15/2023 3:56 PM EDTAssociated Problem(s): Anxiety Partial remission, continue Prozac [address] [facility] HospitalLuibfc13-38-8065 Evaluation + Plan note* Assessment & Plan Note - Bernardino Moran MD - 02/15/2023 3:56 PM EDTAssociated Problem(s): Other pancytopenia (CMS/HCC) (HCC) Stable, just a mild anemia at this time. [facility] HospitalAwtvpt19-06-4303 Evaluation + Plan note* Assessment & Plan Note - Bernardino Moran MD - 02/15/2023 3:55 PM EDTAssociated Problem(s): Morbid (severe) obesity due to excess calories (HCC) Encouraged increased exercise she says she has been going to the gym and even if she cannot get to the gym she should go walking every day. She is to avoid carbs at all cost. [facility] HospitalYungzs89-45-8357 Evaluation + Plan note* Assessment & Plan Note - Bernardino Moran MD - 02/15/2023 3:55 PM EDTAssociated Problem(s): GERD (gastroesophageal reflux disease) Stable, continue Protonix [address] [facility] HospitalUfdaud29-83-7682 Evaluation + Plan note* Assessment & Plan Note - Bernardino Moran MD - 02/15/2023 3:54 PM EDTAssociated Problem(s): Essential hypertension Controlled, and in fact it is low we will have her stop her clonidine should go to 1 tablet daily for a week and then stop it. She is to monitor her blood pressure. Continue carvedilol 3.125 twice a day. [facility] HospitalUsjvoj55-60-7301 Evaluation + Plan note* Assessment & Plan Note - Bernardino Moran MD - 02/15/2023 3:54 PM EDTAssociated Problem(s): Chronic hypoxemic respiratory failure (CMS/HCC) (HCC) Continue oxygen mainly at night [facility] HospitalFoedxw79-01-7028 Evaluation + Plan note* Assessment & Plan Note - Bernardino Moran MD - 02/15/2023 3:54 PM EDTAssociated Problem(s): Weakness of both lower extremities Physical therapy consult for strengthening and balance [place] [id number] Evaluation + Plan note* Assessment & Plan Note - Bernardino Moran MD - 02/15/2023 3:53 PM EDTAssociated Problem(s): Chronic insomnia Continue trazodone 150 [address] [facility] HospitalFkjfpr93-65-4183 History of Present illness Narrative* Li Quiñones [...] MD 02/15/2023 3:57 PM documented in this encounterSPomerene HospitalStorbl42-92-8423 Telephone encounter Note* Telephone Encounter - SUZY Barrera CNP - 12/18/2022 8:24 AM EDT Rx sent. Follow up as scheduled. [facility] HospitalTnxern35-27-0292 Miscellaneous Notes* Telephone Encounter - SUZY Barrera CNP - 12/18/2022 8:24 AM EDT Rx sent. Follow up as scheduled. * Telephone Encounter - Debbie Andrews MA - 12/18/2022 8:05 AM EDT Prescription Request: Last medication check: 08/29/22 Last physical exam: 06/07/22 Next scheduled appointment: 12/25/22 Last date of refill on this medication 09/22/22 documented in this [facility]07-17-2023 Telephone encounter Note* Telephone Encounter - Debbie Andrews MA - 12/18/2022 8:05 AM EDT Prescription Request: Last medication check: 08/29/22 Last physical exam: 06/07/22 Next scheduled appointment: 12/25/22 Last date of refill on this medication 09/22/[address] [facility] [facility] HospitalNklpdp92-96-2509 Telephone encounter Note* Telephone Encounter - SUZY Barrera CNP - 11/27/2022 12:50 PM EDT Rx sent. Follow up as scheduled. [facility] HospitalIwvkga01-21-9428 Miscellaneous Notes* Telephone Encounter - SUZY Barrera CNP - 11/27/2022 12:50 PM EDT Rx sent. Follow up as scheduled. * Telephone Encounter - Nicole Gongora MA - 11/27/2022 11:55 AM EDT Prescription Request: Last medication check: 08/29/22 Last physical exam: 11/26/20 Next scheduled appointment: 12/13/22 Last date of refill on this medication 10/31/22 90 days 1 refill documented in this [facility]06-26-2023 Telephone encounter Note* Telephone Encounter - Nicole Gongora MA - 11/27/2022 11:55 AM EDT Prescription Request: Last medication check: 08/29/22 Last physical exam: 11/26/20 Next scheduled appointment: 12/13/22 Last date of refill on this medication 10/31/22 90 days [address] [facility] HospitalJpeyid61-37-2460 Telephone encounter Note* Telephone Encounter - Li Quiñones MA - 11/17/2022 12:24 PM EDT Prescription Request: Last medication check: 08/29/22 Last physical exam: 05/15/22 Next scheduled appointment: 12/13/22 Last date of refill on this medication 05/15/22 1 inhaler 5 refills [place] [id number] Miscellaneous Notes* Telephone Encounter - Li Quiñones MA - 11/17/2022 12:24 PM EDT Prescription Request: Last medication check: 08/29/22 Last physical exam: 05/15/22 Next scheduled appointment: 12/13/22 Last date of refill on this medication 05/15/22 1 inhaler 5 refills documented in this encounterSPomerene HospitalSzmtkk70-07-7563 Telephone encounter Note* Telephone Encounter - Li Quiñones MA - 11/17/2022 12:21 PM EDT Prescription Request: Last medication check: 08/29/22 Last physical exam: 05/15/22 Next scheduled appointment: 12/13/22 Last date of refill on this medication sanctura 08/15/22 1 month 3 refills Potassium 06/07/22 1 month 5 refills [place] [id number] Miscellaneous Notes* Telephone Encounter - Li Quiñones MA - 11/17/2022 12:21 PM EDT Prescription Request: Last medication check: 08/29/22 Last physical exam: 05/15/22 Next scheduled appointment: 12/13/22 Last date of refill on this medication sanctura 08/15/22 1 month 3 refills Potassium 06/07/22 1 month 5 refills documented in this [facility]04-21-2023 Telephone encounter Note* Telephone Encounter - [...] prior to picking up the medication: Yes [facility] HospitalCccwhd59-85-6721 Miscellaneous Notes* Telephone Encounter - Noemi Hernandez [...] up the medication: Yes documented in this [facility]03-28-2023 Evaluation + Plan note* Assessment & Plan Note - Bernardino Moran MD - 08/29/2022 2:45 PM EDT Associated Problem(s): Anxiety Partial remission, continue Prozac [address] [facility] HospitalBfhuac98-92-9192 Miscellaneous Notes* Assessment & Plan Note - [...] along with her trazodone. documented in this [facility]03-28-2023 Evaluation + Plan note* Assessment & Plan Note - Bernardino Moran MD - 08/29/2022 2:44 PM EDT Associated Problem(s): Major depressive disorder, recurrent, unspecified (HCC) Partial remission, continue Prozac 40 [address] [facility] HospitalKrrorf32-42-7384 Evaluation + Plan note* Assessment & Plan Note - Bernardino Moran MD - 08/29/2022 2:44 PM EDTAssociated Problem(s): Forgetfulness Improved [facility] HospitalQxqosw16-82-4961 Evaluation + Plan note* Assessment & Plan Note - Bernardino Moran MD - 08/29/2022 2:43 PM EDTAssociated Problem(s): Chronic insomnia We discussed her use of trazodone and since she was continuing to get 100 mg from psych we will continue that since she is no longer going to psych. She is to take 10 mg of melatonin along with her trazodone. [facility] HospitalJgovpi64-84-3209 History of Present illness Narrative* Bernardino Moran [...] stated that they are currently in the [facility]. If the patient is a minor, [...] MD 08/29/2022 2:47 PM documented in this encounterSPomerene HospitalMzlmxe13-25-3946 Telephone encounter Note* Telephone Encounter - Debbie Andrews MA - 08/22/2022 4:35 PM EDT I spoke to pt earlier today and notified her of this per separate TE. She has an appt next week andwants to discuss with Dr. Moran at that time. [facility] HospitalVwpmxx44-16-9864 Miscellaneous Notes* Telephone Encounter - Debbie Andrews [...] 3:47 PM EDT Spoke with Finn at [facility]. He states that the patients current [...] no longer seeing Loni Ferrer NP in [place] that previously prescribed this medication. Patient is [...] think we need to contact Finn from [facility] or her psych and let them know [...] 08/18/2022 10:21 AM EDT Per pharmacist at [facility] who works side by side with patients therapist. Patient is not to be takingthis medication from anyone but her therapist. Please advise. * Telephone Encounter - Meredith Mosley - 08/18/2022 10:07 AM EDT Name of caller: Kayce Contact phone number: [phone] Relationship to Patient: patient Provider: Dr Moran Practice: [facility] Chief Complaint/Reason for Call: Kayce called in about her refill for trazadone. A refill request wassent to [facility] on 08/07/2022, however the pharmacy did not refill the medication. The pharmacy states that because this medication was called in originally by another provider they discontinuedthe refill. Kayce would like the refill request be sent to another pharmacy as she is switching pharma cies. Kayce would like it called in to [facility] in [place].Please send this in kay as patient is almost out of meds Best time of day caller can be reached: any Patient advised that office/PCP has 24-48 business hours to return their call: Yes documented in this encounterSPomerene HospitalGrptcs84-37-1273 Telephone encounter Note* Telephone Encounter - Bernardino [...] in a way these are not prescribed. [facility] HospitalSrrcqk40-31-0349 Telephone encounter Note* Telephone Encounter - Nicole Gongora - 08/22/2022 3:47 PM EDT Spoke with Finn at [facility]. He states that the patients current [...] what is best for her. Please advise. [place] [id number] Telephone encounter Note* Telephone Encounter - Debbie Andrews MA - 08/22/2022 8:27 AM EDT Notified, will discuss at OV next week. [place] [id number] Telephone encounter Note* Telephone Encounter - Debbie [...] her. Left a message to return call. [place] [id number] Telephone encounter Note* Telephone Encounter - Bernardino [...] giving her what is best for her. [address]Ktgmet58-97-9080 Telephone encounter Note* Telephone Encounter - Erasto Ireland - 08/21/2022 8:45 AM EDT Patient also stated that she is currently out of this medication. Patient made appointment to review medications with Dr Moran on 08/29/22 at 10:45 am. Please advise [facility] Pojrva18-55-7212 Telephone encounter Note* Telephone Encounter - Nicole Gongora - 08/21/2022 8:32 AM EDT I did not reach pharmacist on Sunday, patient has called back asking about refill what should we tell her? [facility] Xohjil75-44-8441 Telephone encounter Note* Telephone Encounter - Erasto Ireland - 08/21/2022 8:31 AM EDT Patient calling to follow up on this refill request. Patient stated that she is no longer seeing Loni Ferrer NP in [place] that previously prescribed this medication. Patient is requesting PCP to prescribe this for her now and going forward. [facility] Azfeql30-16-6890 Telephone encounter Note* Telephone Encounter - Bre Priest - 08/18/2022 3:09 PM EDT Message released to patient as written. Patient's further questions if applicable: Yes The patient is calling back in with a status update on the medication refill. The patient is requesting the refill go to [facility] and not [facility]. Please advise the patient. Were all questions from office addressed or relayed to the patient from encounter: No [facility] Drqnou99-29-1775 Telephone encounter Note* Telephone Encounter - Nicole Gongora - 08/18/2022 12:25 PM EDT STEPHANIE for Finn. [place] [id number] Telephone encounter Note* Telephone Encounter - Bernardino Moran MD - 08/18/2022 11:26 AM EDT Yes, that would be the appropriate thing to do [place] [id number] Telephone encounter Note* Telephone Encounter - Nicole Gongora - 08/18/2022 10:53 AM EDT Do you think we need to contact Finn from [facility] or her psych and let them know what is going on? [place] [id number] Telephone encounter Note* Telephone Encounter - Nicole Gongora - 08/18/2022 10:48 AM EDT I created a communication note and flag. What do you want us to tell patient? [place] [id number] Telephone encounter Note* Telephone Encounter - Bernardino Moran MD - 08/18/2022 10:42 AM EDT Thank you for the reminder, we got messages on his back on August 08 from the pharmacy, please make anote on her chart so that this does not get sent in by anybody else. [place] [id number] Telephone encounter Note* Telephone Encounter - Nicole Gongora - 08/18/2022 10:21 AM EDT Per pharmacist at [facility] who works side by side with patients therapist. Patient is not to be takingthis medication from anyone but her therapist. Please advise. [place] [id number] Telephone encounter Note* Telephone Encounter - Meredith Mosley - 08/18/2022 10:07 AM EDT Name of caller: Kayce Contact phone number: [phone] Relationship to Patient: patient Provider: Dr Moran Practice: [facility] Chief Complaint/Reason for Call: Kayce called in about her refill for trazadone. A refill request wassent to [facility] on 08/07/2022, however the pharmacy did not refill the medication. The pharmacy states that because this medication was called in originally by another provider they discontinuedthe refill. Kayce would like the refill request be sent to another pharmacy as she is switching pharma cies. Kayce would like it called in to [facility] in [place].Please send this in kay as patient is almost out of meds Best time of day caller can be reached: any Patient advised that office/PCP has 24-48 business hours to return their call: Yes [facility] HospitalHscipj58-86-1602 Telephone encounter Note* Telephone Encounter - Bernardino Moran MD - 08/15/2022 11:23 AM EDT Rx has been sent [facility] HospitalSbsyob95-55-9695 Miscellaneous Notes* Telephone Encounter - Bernardino Moran [...] her. [facility] When she called to get the rest of the Rx, she was told that the Rx was canceled. I do not see a cancellation notice of the Rx in the chart. R: Spoke to Postmaster, who said that Rx was canceled on [...] question Protocols used: Medication Refill and Renewal [id number] documented in this encounterSPomerene HospitalFnjzad54-74-9858 Telephone encounter Note* Telephone Encounter - Debbie Andrews MA - 08/15/2022 10:13 AM EDT There is already a separate refill request routed to you for this. [facility] HospitalQgylbx22-59-8388 Telephone encounter Note* Telephone Encounter - Nisa [...] Rx in the chart. R: Spoke to Postmaster, who said that Rx was canceled on [...] question Protocols used: Medication Refill and Renewal [id number] [facility] HospitalVmmhln54-87-8638 Telephone encounter Note* Telephone Encounter - SUZY Bush CNP - 07/04/2022 3:31 PM EST Reviewed chart. Refill appropriate. RX sent. [facility] HospitalTftamf89-67-1825 Miscellaneous Notes* Telephone Encounter - SUZY Bush [...] up the medication: No documented in this [facility]01-31-2023 Telephone encounter Note* Telephone Encounter - [...] prior to picking up the medication: No [facility] HospitalSblnen82-67-3910 Evaluation + Plan note* Assessment & Plan Note - Bernardino Moran MD - 06/07/2022 3:08 PM ESTAssociated Problem(s): Anxiety Partial remission continue fluoxetine and follow-up with psychiatry as needed. [facility] HospitalKtyopa44-07-7724 Evaluation + Plan note* Assessment & Plan Note - Bernardino Moran MD - 06/07/2022 3:08 PM ESTAssociated Problem(s): Current moderate episode of major depressive disorder without prior episode (HCC) Partial remission, continue fluoxetine 80 mg and follow-up with psychiatry as needed [facility] HospitalUhqfef59-25-1862 Evaluation + Plan note* Assessment & Plan Note - Bernardino Moran MD - 06/07/2022 3:08 PM ESTAssociated Problem(s): Hyperlipidemia Controlled, continue rosuvastatin [address] [facility] [facility] HospitalJczzsh44-03-7821 Miscellaneous Notes* Assessment & Plan Note - [...] about increasing her trazodone documented in this [facility]01-04-2023 Evaluation + Plan note* Assessment & Plan Note - Bernardino Moran MD - 06/07/2022 3:07 PM EST Associated Problem(s): Hematoma (nontraumatic) of breast We will check clotting and CBC [facility] HospitalLwrigi60-81-6705 Evaluation + Plan note* Assessment & Plan Note - Bernardino Moran MD - 06/07/2022 3:07 PM ESTAssociated Problem(s): Urinary frequency UA is clear, will start her on oxybutynin [address] [facility] HospitalAkjqqg99-03-7196 Evaluation + Plan note* Assessment & Plan Note - Bernardino Moran MD - 06/07/2022 3:07 PM ESTAssociated Problem(s): Stage 1 chronic kidney disease Stable, repeat lab work today [facility] HospitalAmwmcq08-66-7962 Evaluation + Plan note* Assessment & Plan Note - Bernardino Moran MD - 06/07/2022 3:06 PM ESTAssociated Problem(s): GERD (gastroesophageal reflux disease) Controlled, continue Protonix 40 mg daily [facility]01-04-2023 Evaluation + Plan note* Assessment & Plan Note - Bernardino Moran MD - 06/07/2022 3:05 PM ESTAssociated Problem(s): Essential hypertension Blood pressure was significantly elevated today, recheck was significantly improved although still slightly elevated, continue clonidine 0.1 mg [facility]01-04-2023 Evaluation + Plan note* Assessment & Plan Note - Bernardino Moran MD - 06/07/2022 3:05 PM ESTAssociated Problem(s): Asthma Stable, continue albuterol as needed [facility]01-04-2023 Evaluation + Plan note* Assessment & Plan Note - Bernardino Moran MD - 06/07/2022 3:05 PM ESTAssociated Problem(s): Bronchitis Zithromax Z-Guevaar take as directed [facility]01-04-2023 Evaluation + Plan note* Assessment & Plan Note - Bernardino Moran MD - 06/07/2022 3:05 PM ESTAssociated Problem(s): GENNARO (obstructive sleep apnea) Stable on CPAP [facility]01-04-2023 Evaluation + Plan note* Assessment & Plan Note - Bernardino Moran MD - 06/07/2022 3:04 PM ESTAssociated Problem(s): Chronic insomnia Uncontrolled, recommend she contact her psychiatrist to see about increasing her trazodone [facility]01-04-2023 History of Present illness Narrative* Li Fern, MA - 06/07/2022 10:00 AM EST Patient verified by last name and date of . Patient wants a tail sawyer in the room during during the visit. no Superintendent Institution na * Bernardino Moran MD - 06/07/2022 10:00 AM EST Images from the original note were not included. [place] [address] [facility] [address] Visit type: Established Patient Reason for Visit: [...] to make appointment with his / her ehs specialist Safety Do you have a working [...] MD 06/07/2022 3:09 PM documented in this [facility]12-30-2022 Telephone encounter Note* Telephone Encounter - SUZY Barrera CNP - 06/02/2022 11:36 AM EST Rx sent. Follow up as scheduled. [facility] HospitalAtttea71-78-7178 Miscellaneous Notes* Telephone Encounter - SUZY Barrera [...] 30 days 1 refill documented in this [facility]12-30-2022 Telephone encounter Note* Telephone Encounter - Nicole Gongora - 06/02/2022 11:10 AM EST Prescription Request: Last medication check: 11/29/2021 Last physical exam: 11/26/2020 Next scheduled appointment: 06/07/2022 CSA on file (date): none Last urine drug screen: none Last date of refill on this medication 03/13/2022 30 days 1 refill [facility] Iosioz53-07-4404 NoteMR#: [id number] I [facility] Pt. Name: Alfie Hogan Admitted: 04/24/2021 [...] Salomon MD Date Trans: 05/05/2021 01:51 P/fer DN_JN:[id number] cc: Itz Tapia [address] [place] [address]bdMari[facility]11-29-2021 NoteMR#: [id number] I [facility] Pt. Name: Alfie Hogan Admitted: 04/24/2021 [...] discharge to follow up with [facility] in 2-3 weeks. During her [...] Cerrato MD Date Trans: 05/02/2021 01:24 P/fer DN_JN:[id number] cc: Itz Tapia [address] [place] [place] [address]OfqMarietta Memorial Hospital11-17-2021 NoteMR#: [id number] I [facility] Pt. Name: Alfie Hogan Admitted: 04/10/2021 [...] Scruggs MD Date Trans: 04/20/2021 11:08 A/fer DN_JN:[id number] [facility]11-12-2021 NoteMR#: [id number] [facility] Pt. Name: Alfie Hogan Date of Service: 04/14/2021 Room #: [id number] Birthdate: 1960 Referring Physician: CONSULTATION CHIEF COMPLAINT: [...] with Dr. Garcia in 2-3 weeks at [facility] for further workup. 4. Urology [...] Fountain MD Date Trans: 04/14/2021 11:27 P/fer DN_JN:[id number] [facility]11-11-2021 NoteMR#: [id number] [facility] Pt. Name: Alfie Hogan Date of Service: 04/14/2021 Room #: [id number] Birthdate: 1960 Referring Physician: CONSULTATION CC: right [...] Garcia in 2 to 3 weeks at [facility] for further work-up Urology will sign off [...] Fountain MD Date Trans: 04/14/2021 03:51 P/ ADALID_JN:[id number] [facility]03-04-2013 History of Past illness Narrative* Problem [...] of this encounter (statuses as of 07/06/2023) [facility]03-04-2013 History of Past illness Narrative* Problem Noted [...] of this encounter (statuses as of 07/06/2023) [facility] Junior Salter [facility] January 04, 2023 12:33pm Note Date/Time January 04, 2023 12: 03pm [facility] Medical Records Department [address] [place] [address] Emergency Department Summary 01/04/23 MR#: [id number] Acct: [id number] Name: ALFIE HOGAN Rep #:[id number] : 1960 62 From: Junior Salter MD [...] Severity: Mild Maximum Severity: Moderate Worsened by: [place] of liquids or solids, walking Relieved by: [...] Prior similar symptoms: No Recent Illness/Hospitalization: [facility] Medical History Abdominal pain Abnormal liver CT [...] % (Auto) 69.3 Lymph % (Auto) 19.0 [place] % (Auto) 9.0 Eos % (Auto) 2.0 [...] your Primary Care Provider. Call [facility] ([phone]) or report to the closest Emergency Room. Call 911 if necessary. 01/04/23 1233 <Electronically signed by Junior Salter MD> Cosigner Signature (if applicable): CC: Dr. Bernardino Moran MD ~ Signed [facility] Work Phone: Discharge summary Author Blayne Santana [facility] Note Date/Time November 10, 2024 2:00p m [facility] Medical Records Department [address] [address] Transfer to [facility] MR#: [id number] Acct: [id number] Name: ALFIE HOGAN Rep #:[id number] : 1960 63 From: Blayne Santana DO PCP: Dr. Corin Mariscal MD Status:ADM IN Certification of patient admission REQUIRED AT TIME OF ADMISSION. I CERTIFY THAT POST-HOSPITAL ECF SERVICES ARE REQUIRED TO BE GIVEN ON AN IN-PATIENT BASIS BECAUSE OF THE ABOVE NAMED PATIENT'S NEED FOR HALFWAY CARE ON A CONTINUING BASIS FOR THE [...] only 15 feet. Patient will likely require long-term facility. To TCU today. Plan VTE prophylaxis: [...] improved. Encourage outpt WHY WEIGHT program for snf wt loss w/ PCP referral Discharge Plan [...] in before D/C Order can be placed): Long-Term Facility 11/10/24 1400 <Electronically signed by Blayne Santana DO> Cosigner Signature (if applicable): CC: Dr. Corin Mariscal MD; Dr. Kaitlyn Winkler DO ~ [facility] Work Phone: Discharge summary Author Blayne Santana [facility] Note Date/Time November 10, 2024 2:02p [facility] Medical Records Department [address] [place] [address] Discharge Summary 11/10/24 1400 MR#: [id number] Acct: [id number] Name: ALFIE HOGAN Rep #:[id number] : 1960 63 From: Blayne Santana DO PCP: Dr. Corin Mariscal MD Status:ADM IN Location: [place] [address] Providers Date of Admission: 11/07/24 Primary Care [...] only 15 feet. Patient will likely require long-term facility. To TCU today. Plan VTE prophylaxis: [...] Catch Urine Culture - Final GNR lactose swing type lathe operator Mixed Gram Positive Organisms 11/07/24 12:21 Urine, Clean Catch Urine Culture - Final GNR lactose swing type lathe operator Mixed Gram Positive Organisms D/C Instructions Discharge [...] in before D/C Order can be placed): Long-Term Facility Charges/Coding Visit Charges Inpatient E&M: 88681 Disch Hosp >30min 11/10/24 1402 <Electronically signed by Blayne Santana DO> Cosigner Signature (if applicable): CC: Dr. Corin Mariscal MD; Dr. Blayne Santana DO~ Signed [facility] Work Phone: Evaluation note* Diagnosis Onset Date Resolution Status Bimalleolar fracture of right ankle acute Closed fracture of fourth toe of left foot acute [id number] acute Fracture of toe of left foot acute [facility] Work Phone: Evaluation note* Diagnosis Onset Date Resolution Status Acute hypotension acute PEDRO (acute kidney injury) ac sultana Encephalopathy acute Neutropenia acute Pyuria acute [facility] Work Phone: Evaluation note* Diagnosis Onset Date Resolution Status Neutropenia acute Acute hypotension resolved PEDRO (acute kidney injury) re solved Encephalopathy resolved [facility] Work Phone: Evaluation note* Diagnosis Onset Date Resolution Status Closed fracture of fibula, proximal, left acute Contusion of left hip acute Contusion of left shoulder a cute Contusion of rib on right side acute Contusion of scalp acute Fracture of neck of fibula a cute [facility] Work Phone: Evaluation note* Diagnosis Onset Date Resolution Status Closed fracture of fibula, proximal, left acute Contusion of left hip acute Contusion of left shoulder a cute Contusion of rib on right side acute Contusion of scalp acute Fracture of neck of fibula a cute Alcohol withdrawal acute Viral syndrome acute COPD exacerbation chronic [facility] Work Phone: Evaluation note* Diagnosis Recurrent major depressive disorder, in partial remission (HCC)- Primary Chronic insomnia Insomnia, unspecified Forgetfulness Other general symptoms Anxiety Anxiety state, unspecified [facility] Diagnosis Chronic hypoxemic respiratory failure (CMS/HCC) ([facility]) Chronic respiratory failure [facility]* Diagnosis Onset Date Resolution Status Nausea and vomiting acute Chronic renal insufficiency, stage I chronic Essential (primary) hypertension [facility] Work Phone: Evaluation note* Diagnosis Chronic insomnia- Primary Insomnia, unspecified Morbid (severe) obesity due to excess calories ([facility]) Chronic hypoxemic respiratory failure (CMS/HCC) (HCC) Chronic respiratory failure Other pancytopenia (CMS/HCC) ([facility]) Other pancytopenia Essential hypertension Unspecified essential hypertension Gastroesophageal reflux disease without esophagitis Esophageal reflux Current moderate episode of major depressive disorder without prior episode ([facility]) Anxiety Anxiety state, unspecified Pure hypercholesterolemia Ataxia Lack of coordination Weakness of both lower extremities [facility]* Diagnosis Onset Date Resolution Status Nausea and vomiting acute Chronic renal insufficiency, stage I chronic Essential (primary) hypertension chronic GENNARO (obstructive sleep apnea) chronic Respiratory failure chronic [facility] Work Phone: Evaluation note* Diagnosis Onset Date Resolution Status GENNARO (obstructive sleep apnea) chronic Respiratory failure [facility] Work Phone: evaluation note* Diagnosis Radiculopathy of lumbar region- Primary Thoracic or lumbosacral neuritis or radiculitis, unspecified documented in this encounter [facility] note* Diagnosis Lumbar radiculopathy- Primary Thoracic or lumbosacral neuritis or radiculitis, unspecified documented in this encounter [facility] note* Diagnosis Onset Date Resolution Status Insomnia acute Oral thrush acute GENNARO (obstructive sleep apnea) chronic Respiratory failure with hypoxia chronic Restrictive lung disease [facility] Work Phone: evaluation note* Diagnosis Lumbar [...] bronchitis with exacerbation documented in this encounter [facility] note* Diagnosis Essential hypertension- Primary Unspecified essential [...] disorders of breast documented in this encounter [facility] note* Diagnosis Thrombocytopenia, secondary- Primary Other secondary thrombocytopenia [facility] Diagnosis Low vitamin B12 level- Primary Other B-complex deficiencies [facility]. Austin [facility] July 16, 2022 7:43pm Note Date/Time July 16, 2022 7:17pm [facility] Medical Records Department [address] [place] [address] H&P Exam - Hospitalist 07/16/221942 MR#: [id number] Acct: [id number] Name: ALFIE HOGAN Rep #:[id number] : 1960 61 From: Mckenzie Austin MD PCP: Dr. Bernardino Moran MD Status:ADM IN Location: [facility] SI802-7 HPI - General General Date of Admission: [...] Former tobacco use who presents to the [facility] ED on 07/16/22 with history of [...] times a total of 2 thus far. [facility] Medical History Abdominal pain Abnormal liver CT [...] (Auto) 71.0 H, Lymph % (Auto) 19.8, [place] % (Auto) 8.6, Eos % (Auto) 0.2, [...] 18:50 EST Reading Location ID and State: [address] [place] [address] , Service support , Assessment & Plan [...] Former tobacco use who presents to the [facility] ED on 07/16/22 with history of [...] #15. CODE status: Patient's healthcare power of assistant prosecuting attorney is specifically her ex- and [...] 76 minutes. Charges/Coding Visit Charges Inpatient E&M: 18073 Init Hosp L3 Procedures Hospitalists Procedures: 75871 Advncd Care Plan 30 Min 07/16/221942 <Electronically signed by Mckenzie Austin MD> Cosigner Signature (if applicable): CC: Dr. Mckenzie Austin MD; Dr. Bernardino Moran MD~ Signed [facility] Work Phone: [facility] Work Phone: Hospital Discharge instructions Additional Instructions Take Imodium for diarrhea.[facility] Work Phone: Hospital Discharge instructions Additional [...] this because it can make you dehydrated otherwise.[facility] Work Phone: Procedure anesthesia Narrative* Procedure [...] Justin Chavez RN documented in this encounter [facility] for referral (narrative)No reason for referral information [facility]WBarney [facility] Work Phone: Summary Purpose Family History No [...] FoundDocuments on File Type Date Recorded Patient Search Director Expl anation Advance Directives and Living Will Power of Surveillance Systems Engineer Documents on File Type Date Recorded Patient Search Director Expl anation Advance Directives and Livin g Will Advance Directives and Livin g Will 07/28/2019 11:40 AM Power of Surveillance Systems Engineer Latest Code Status on File Code Status Date Activated Date Inactivated Comments Full Code 10/24/2019 9:18 PM Documents on File Type Date Recorded Patient Search Director Expl anation ACP-Advance Directive ACP-Advance Directive 07/28/2019 11:40 AM ACP-Power of Surveillance Systems Engineer Latest Code Status on File Code Status Date Activated Date Inactivated Comments Full Code 10/24/2019 9:18 PM 10/26/2019 5:41 PM Documents on File Type Date Recorded Patient Search Director Expl anation ACP-Advance Directive ACP-Advance Directive 07/28/2019 11:40 AM ACP-Power of Surveillance Systems Engineer Latest Code Status on File Code Status Date Activated Date Inactivated Comments DNR-CCA 08/24/2020 1:32 PM Full Code 08/24/2020 9:06 AM 08/24/2020 1:32 PM Full Code 10/24/2019 9:18 PM 10/26/2019 5:41 PM Advance Directive Response Recorded Date/ Time Advance Directives No November 24 12:12pm Living Will No October 15, 2021 4 :03pm Power of Surveillance Systems Engineer No October 15, 2021 4:03pm Advance Directive Response Recorded Date/ Time Advance Directives No November 24 12:12pm Living Will No December 29, 2021 10:44pm Power of Surveillance Systems Engineer No December 29 10:44pm Advance Directive Response Recorded Date/ Time Name of Medical Power of Surveillance Systems Engineer PT UNSURE March 15, 2022 12:51pm Advance Directives No November 24 12:12pm Living Will Yes March 15 12:51pm Power of Surveillance Systems Engineer Yes March 15, 2022 12:51pm Advance Directive Response Recorded Date/ Time Name of Medical Power of Surveillance Systems Engineer PT UNSURE March 15, 2022 11:51am Advance Directives No November 24 11:12am Living Will Yes March 15 11:51am Power of Surveillance Systems Engineer Yes March 15, 2022 11:51am Advance Directive Response Recorded Date/ Time Name of Medical Power of Surveillance Systems Engineer SETH [id number] July 16, 2022 5:34pm Advance Directives No November 24 11:12am Living Will Yes July 16 5:34pm Power of Surveillance Systems Engineer Yes July 16, 2022 5:34pm Documents on File Type Date Recorded Patient Search Director Expl anation Advance Directives and Living Will 07/25/2019 Advance Directive Response Recorded Date/ Time Advance Directives No November 24 12:12pm Living Will No January 04, 2023 11:42am Power of Surveillance Systems Engineer No January 04 11:42am Documents on File Type Date Recorded Patient Search Director Expl anation Advance Directives and Living Will 07/25/2019 Advance Directive Response Recorded Date/ Time Advance Directives No November 24 11:12am Living Will No January 04, 2023 10:42am Power of Surveillance Systems Engineer No January 04 10:42am Advance Directive Response Recorded Date/ Time Advance Directives No November 24 11:12am Living Will No July 12 10:22am Power of Surveillance Systems Engineer No July 12, 2023 10:22am Advance Directive Response Recorded Date/ Time Name of Medical Power of Surveillance Systems Engineer RADHA HOGAN August 18, 2023 7:24pm Advance Directives No November 24 12:12pm Living Will No August 18, 2023 7:24pm Power of Surveillance Systems Engineer Yes August 17 7:24pm Advance Directive Response Recorded Date/ Time Living Will Yes July 13 4:03pm Power of Surveillance Systems Engineer Yes July 13, 2024 4:03pm Name of Medical Power of Surveillance Systems Engineer Seth Hogan July 13, 2024 4:03pm Living Will No August 09, 2024 5:33pm Power of Surveillance Systems Engineer No August 09 5:33pm Living Will Yes July 15 10:51pm Power of Surveillance Systems Engineer Yes July 15, 2024 10:51pm Name of Medical Power of Surveillance Systems Engineer CR BECERRA July 15, 2024 10:51pm Advance Directives No November 24 11:12am Advance Directive Response Recorded Date/ Time Living Will Yes July 13 5:03pm Do you have a Healthcare Pow er of Surveillance Systems Engineer? Yes July 13, 2024 5:03pm Name of Medical Power of Surveillance Systems Engineer Sethpayton Hogan July 13, 2024 5:03pm Living Will No August 09, 2024 10:20pm Do you have a Healthcare Pow er of Surveillance Systems Engineer? No August 09, 2024 10:20pm Living Will Yes July 15 11:51pm Do you have a Healthcare Pow er of Surveillance Systems Engineer? Yes July 15, 2024 11:51pm Name of Medical Power of Surveillance Systems Engineer CR LENNY AND NEILEE BECERRA July 15, 2024 11:51pm Advance Directives No November 24 12:12pm Advance Directive Response Recorded Date/ Time Living Will Yes July 13 5:03pm Do you have a Healthcare Pow er of Surveillance Systems Engineer? Yes July 13, 2024 5:03pm Name of Medical Power of Surveillance Systems Engineer Seth Hogan July 13, 2024 5:03pm Living Will No August 09, 2024 10:20pm Do you have a Healthcare Pow er of Surveillance Systems Engineer? No August 09, 2024 10:20pm Do you have a Healthcare Pow er of Surveillance Systems Engineer? Yes September 30, 2024 7:21pm Name of Medical Power of Surveillance Systems Engineer brothers and sisters September 30, 2024 7:21pm Living Will Yes July 15 11:51pm Do you have a Healthcare Pow er of Surveillance Systems Engineer? Yes July 15, 2024 11:51pm Name of Medical Power of Surveillance Systems Engineer CR LENNY AND NEILEE BECERRA July 15, 2024 11:51pm Advance Directives No November 24 12:12pm Advance Directive Response Recorded Date/ Time Living Will Yes July 13 5:03pm Do you have a Healthcare Pow er of Surveillance Systems Engineer? Yes July 13, 2024 5:03pm Name of Medical Power of Surveillance Systems Engineer Seth Hogan July 13, 2024 5:03pm Living Will No August 09, 2024 10:20pm Do you have a Healthcare Pow er of Surveillance Systems Engineer? No August 09, 2024 10:20pm Do you have a Healthcare Pow er of Surveillance Systems Engineer? Yes September 30, 2024 7:21pm Name of Medical Power of Surveillance Systems Engineer brothers and sisters September 30, 2024 7:21pm Do you have a Healthcare Pow er of Surveillance Systems Engineer? Yes November 07, 2024 10:22am Living Will Yes July 15 11:51pm Do you have a Healthcare Pow er of Surveillance Systems Engineer? Yes July 15, 2024 11:51pm Name of Medical Power of Surveillance Systems Engineer CR UREÑA AND CHAR BECERRA July 15, 2024 11:51pm Advance Directives No November 24 12:12pm Advance Directive Response Recorded Date/ Time Living Will Yes July 13 5:03pm Do you have a Healthcare Pow er of Surveillance Systems Engineer? Yes July 13, 2024 5:03pm Name of Medical Power of Surveillance Systems Engineer Seth Hogan July 13, 2024 5:03pm Living Will No August 09, 2024 10:20pm Do you have a Healthcare Pow er of Surveillance Systems Engineer? No August 09, 2024 10:20pm Do you have a Healthcare Pow er of Surveillance Systems Engineer? Yes September 30, 2024 7:21pm Name of Medical Power of Surveillance Systems Engineer brothers and sisters September 30, 2024 7:21pm Do you have a Healthcare Pow er of Surveillance Systems Engineer? Yes November 07, 2024 7:56pm Name of Medical Power of Surveillance Systems Engineer Cr Ureña November 07, 2024 7:56pm Living Will Yes July 15 11:51pm Do you have a Healthcare Pow er of Surveillance Systems Engineer? Yes July 15, 2024 11:51pm Name of Medical Power of Surveillance Systems Engineer CR UREÑA AND CHAR BECERRA July 15, [...] mild sore throat. You may use an dllr-pgv-fjxrwap chloraseptic spray, gargle with warm salt water, [...] an upset belly after: o Coffee o [place] fruits and juices o Tomato products o [...] ask your doctor before you take any yqhc-zgh-zvrdbgk (OTC) drugs or other alternative drugs or [...] Talk with your doctor about adding an oqwx-znr-zdkdpgp (OTC) fiber product to keep your stools [...] belly pain. Where can I learn more? [employer] http://patients.gi.org/topics/npntvohznzcjra-ldc-lshwxponqxnpok/ FamilyDoctor.org http://familydoctor.org/familydoctor/en/diseases-conditions/diverticular-disease .html National Digestive Diseases Information Clearinghouse http://digestive.niddk.nih.gov/ddiseases/pubs/diverticulosis/index.aspx National Organization for Rare Disorders http://www.rarediseases.org/rvfo-qywvdoe-uicaopqirfb/rare-diseases/byID/464/view Abstract Consumer Information Use and Disclaimer: This [...] encounter* Instructions* Ashley Crews, PhD - 08/25/2020 [facility] Dual Diagnosis program [place], [place] [phone] - IOP weekend program, evening group program, [...] Physician MD CRUZ, MAYCOL Pelletier Accession Number [id number] CPT4 Codes 08289 () Reason For Exam cough, dyspnea, COVID+ [...] [place] [address] Patient transported to [facility]. documented in this encounter* Talya Peterson MD [...] eGFR 82.4 >60 mL/min EGFR IF NonAfrican Swiss 71.1 >60 mL/min Calcium 7.8 (L) 8.4 [...] eGFR 75.2 >60 mL/min EGFR IF NonAfrican Swiss 64.9 >60 mL/min Calcium 9.1 8.4 - [...] be monitored and followed by the diet data technician. 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 I left their [...] [facility] IOP resources, provided contact information for [facility], as they offer evening and weekend IOP programing, as well as outpatient mental health therapy and relapse recovery groups; both in person and telehealth options. Again, reviewed ER services with patient. Safety planning was discussed: patient instructed to [id number] or go directly to nearest ER for [...] from the original note were not included. [facility] Progress Note Alfie Hogan : 1960(59 [...] reflux disease) COPD (chronic obstructive pulmonary disease) ([facility]) Resolved Problems: Hypomagnesemia Lactic acidosis #Alcohol abuse [...] will have nowhere to stay upon eventual discharge.HYDROLOGY PROFESSOR consulted for dispo planning #Hypokalemia - K+ [...] pulmonology. No increased O2 requirements this admission, [id number] on 2L - Continue home dulera, duonebs [...] creatinine clearance >30 Disposition:await test results, await intelligence consultant recommendations and await clinical improvement No [...] serve Sarahy Motta PA-C 6PM-6AM please page: [facility] Internal Medicine Associated attestation - Lei Basurto MD - 08/25/2020 2:33 PM EDT Attending Supervising Physician's Attestation Statement The patient is a 59 y.o. female. I have performed a history and physical examination of the patient. I discussed the case with the physician licensed loan officer assistant. Ms. Hogan seated at side of [...] Addiction Medicine Inpatient Progress Note Patient: Alfie oHgan Chief Complaint Patient presents with Alcohol Problem pt request detox, large bottle of wine a day sometimes 2 a day last drink was midnight Problem List: Principal Problem: Alcohol withdrawal syndrome with complication ([facility]) Active Problems: Essential hypertension Hyperlipidemia Current moderate episode of major depressive disorder without prior episode ([facility]) GENNARO (obstructive sleep apnea) Anxiety Class 3 severe obesity in adult ([facility]) Chronic hypoxemic respiratory failure ([facility]) Diastolic heart failure ([facility]) Severe alcohol use disorder ([facility]) History of opioid abuse ([facility]) Hypokalemia Hypomagnesemia Lactic acidosis GERD (gastroesophageal reflux disease) COPD (chronic obstructive pulmonary disease) ([facility]) Resolved Problems: * No resolved hospital problems. 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 The facility in [place], [facility], would be ideal for her. However, she [...] she is here. She is going to [facility] after discharge for behavioral health care. [...] fracture of fourth toe of left foot [id number] Fracture of toe of left foot Chief [...] Ataxia Weakness of both lower extremities Procedures DE OFFICE/OUTPATIENT [facility] 60-74 MINUTES Bernardino Moran MD [address] [place] [address] Referral ID Status Reason Start Date Expiration Date Visits Requested Visits Authorized [id number] Pending Review Eval and Treat 02/15/2023 08/14/2023 99 99 Scheduling Instructions [facility] Specialty Diagnoses / Procedures Referred By Contac t Referred To Contact Pain Management Diagnoses Radiculopathy of lumbar region Procedures CONSULT TO PAIN MGT Annika Collado MD, PhD [address] [place] [address] Referral ID Status Reason Start Date Expiration Date Visits Requested Visits Authorized [id number] Ref Not Required PCP Requested Referral 07/05/2023 07/04/2024 1 1 Specialty Diagnoses / Procedures Referred By Contac t Referred To Contact CT IMAGING Diagnoses Radiculopathy of lumbar region Procedures CT LUMBAR SPINE [facility] CT LUMBAR SPINE W/O CONTRAST MATERIAL Annika Collado MD, PhD [address] [facility] [facility] [place] [address] [place] [address] Referral ID Status Reason Start Date Expiration Date Visits Requested Visits Authorized [id number] Authorized Auto-Generat ed Referral 07/05/2023 08/03/2024 1 1 Specialty Diagnoses / Procedures Referred By Contac t Referred To Contact XR IMAGING Diagnoses Radiculopathy of lumbar region Procedures XR LUMBAR MOTION 4V AP/LAT/ FLEX/EXT RADEX SPINE LUMBOSACRAL MINIMUM 4 VIEWS Annika Collado MD, PhD [address] [place] [address] [place] [address] Referral ID Status Reason Start Date Expiration Date Visits Requested Visits Authorized [id number] Authorized Auto-Generat ed Referral 07/05/2023 08/03/2024 1 1 Specialty Diagnoses / Procedures Referred By Contac t Referred To Contact Terri Garcia, LAND DEVELOPMENT MANAGER - SPRAY PAINTER [address] [place] [address] Referral ID Status Reason Start Date Expiration Date Visits Re quested Visits Authorized [id number] Closed 1 1 Additional Source Comments INFORMATION SOURCE (unrecogn ized section and content) DATE CREATED AUTHOR 05/12/2018 [facility] DATE CREATED AUTHOR AUTHOR'S ORGANIZ ATION 11/09/2019 [facility] DATE CREATED AUTHOR AUTHOR'S ORGANIZ ATION 12/26/2019 [facility] ([place] DATE CREATED AUTHOR AUTHOR'S ORGANIZ ATION 08/22/2020 [facility] DATE CREATED AUTHOR AUTHOR'S ORGANIZ ATION 08/26/2020 [facility] DATE CREATED AUTHOR AUTHOR'S ORGANIZ ATION 09/10/2020 [facility] DATE CREATED AUTHOR AUTHOR'S ORGANIZ ATION 05/11/2021 [facility] DATE CREATED AUTHOR AUTHOR'S ORGANIZ ATION 07/09/2023 [facility] DATE CREATED AUTHOR AUTHOR'S ORGANIZ ATION 11/17/2023 [facility] DATE CREATED AUTHOR AUTHOR'S ORGANIZ ATION 10/18/2024 [facility] DATE CREATED AUTHOR AUTHOR'S ORGANIZ ATION 04/13/2025 [facility] Reason for Visit (unrecogniz ed section [...] lumbar region without neurogenic claudication [M48.061] Procedures DE REMOVAL POSTERIOR SEGMENTAL INSTRUMENTATION DE [place] FACETECTOMY & FORAMOTOMY 1 VRT SGM LUMBAR DE ARTHRODESIS POSTERIOR/PSTLAT TQ 1NTRSPC THORACIC DE ARTHRODESIS PST/PSTLAT TQ 1NTRSPC EA ADDL NTRSPC DE POSTERIOR SEGMENTAL INSTRUMENTATION 3-6 VRT SEG DE ALLOGRAFT FOR SPINE SURGERY ONLY MORSELIZED REMOVAL HARDWARE LUMBAR 3/4/5, LAMINECTOMY LUMBAR 2, FUSION THORACIC 11-LUMBAR 3, INSTRUMENTATION THORACIC 11-LUMBAR 5, ALLOGRAFT, BONE MORPHOGENETIC PROTEIN Brandon Bean MD [address] [facility] [address] [address] [facility] [address] [place] [address] Referral ID Status Reason Start Date Expiration Date Visits Re quested Visits Authorized [id number] 1 1 Reason Comments Med Refill Reason [...] MD Primary Care Provider Active Terri Garcia SDC TEACHER, SDC TEACHER-C Attending Provider, Referring Pro vider Active Team [...] MD Admit Provider, Attending Prov ider Active Knot Tier Relationship Specialty Start Date End [place] [address] PCP - General 10/31/17 Knot Tier Relationship Specialty Start Date End [place] [address] PCP - General 10/31/17 Knot Tier Relationship Specialty Start Date End [place] [address] PCP - General 10/31/17 Knot Tier Relationship Specialty Start Date End Date Bernardino Moran MD [address] [place] [id number] PCP - General 10/31/17 Knot Tier Relationship Specialty Start Date End Date Bernardino Moran MD [address] [place] [id number] PCP - General 10/31/17 Team Status: Inactive Member Role Status Dates Dr. Bernardino Moran MD Primary Care Provider, Referri ng Provider Active Grayson ADEN, PA Attending Provider Active Team Status: Inactive Member Role Status Dates Dr. Bernardino Moran MD Primary Care Provider Active Dr. Junior Salter MD Emergency Provider Active Knot Tier Relationship Specialty Start Date End [place] [address] PCP - General 10/31/17 Knot Tier Relationship Specialty Start Date End Date Bernardino Moran MD [address] [place] [phone] PCP - General 10/31/17 Knot Tier Relationship Specialty Start Date End Date Bernardino Moran MD [address] [place] [address] [phone] PCP - General 10/31/17 Knot Tier Relationship Specialty Start Date End Date Bernardino Moran MD [address] [place] [address] [phone] PCP - General 10/31/17 Team Status: Inactive [...] Status: Active Member Role Status Dates Dr. Bernardion Moran MD Primary Care Provider, Attendi ng [...] MD Primary Care Provider Active Patricia Vallejo SDC TEACHER, SDC TEACHER-C Attending Provider Active Knot Tier Relationship Specialty Start Date End Date Bernardino Moran MD [address] [place] [phone] PCP - General 10/31/17 Team Status: Inactive Member Role Status Dates Dr. Bernardino Moran MD Primary Care Provider Active Corin Mariscal MD Attending Provider, Referring Provide r Active Knot Tier Relationship Specialty Start Date End Date Bernardino Moran [address] [place] [facility] [place] [address] PCP - General Family Medicine 03/13/18 Knot Tier Relationship Specialty Start Date End Date Bernardino Moran [address] [place] [facility] [place] [address] PCP - General Family Medicine 03/13/18 Team Status: Inactive Member Role Status Dates Dr. Bernardino Moran MD Primary Care Provider, Referri ng Provider Active Patricia Vallejo SDC TEACHER, SDC TEACHER-C Attending Provider Active Team Status: Inactive Member Role Status Dates Dr. Bernardino Moran MD Primary Care Provider Active Dr. Eliazar Chavarria MD Attending Provider, Emergency Provider Active Knot Tier Relationship Specialty Start Date End Date Bernardino Moran MD [address] [place] [address] PCP - General 10/31/17 Knot Tier Relationship Specialty Start Date End Date Bernardino Moran MD [address] [place] [address] PCP - General 10/31/17 08/13/23 Team Status: [...] Corin Mariscal MD Primary Care Provider Active Knot Tier Relationship Specialty Start Date End Date Bernardino Moran MD [address] [place] [place] [address] PCP - General 10/31/17 Knot Tier Relationship Specialty Start Date End Date Bernardino Moran MD [address] [place] [id number] PCP - General 10/31/17 Knot Tier Relationship Specialty Start Date End Date Bernardion Moran MD [address] [place] [id number] PCP - General 10/31/17 Knot Tier Relationship Specialty Start Date End Date Bernardino Moran [address] [place] [id number] PCP - General Family Medicine 03/13/18 [...] 2024 Team Status: Active Member Role Status iAmee Mariscal MD Primary Care Provider Active St [...] Ashvin Bedolla MD Other Provider Active Start: [facility] 2024 Dr. Hemant Stevenson MD [...] Bedolla MD Other Provider Active Start: [facility]2024 End: August 13, 2024 Dr. Hemant [...] Ashvin Bedolla MD Other Provider Active Start: [facility] 2024 Dr. Hemant Stevenson MD [...] Active St art: August 12, 2024 Dr. Lucas Padilla MD Other Provider [...] Ashvin Bedolla MD Other Provider Active Start: [facility] [address]. Hemant Stevenson MD [...] October 14, 2024 End: October 14, 2024 Knot Tier Relationship Specialty Start Date End Date Corin Mariscal MD [address] [facility] [address] [place] [address] PCP - General Internal Medicine 10/15/24 Knot Tier Relationship Specialty Start Date End Date Corin Mariscal MD [address] [facility] [address] [place] [address] PCP - General Internal Medicine 10/15/24 Team [...] 2024 End: November 10, 2024 Dr. Kaitlyn Winklre , Admit Provider Active Start : November [...] or prosecute any alcohol or drug abuse patient.[facility] Center[facility] the event this information is protected by the Federal Confidentiality of Alcohol and Drug Abuse Patient Records regulations: The Federal rules restrict any use of the information to criminally investigate or prosecute any alcohol or drug abuse patient.[facility] Center[facility] the event this information is protected by the Federal Confidentiality of Alcohol and Drug Abuse Patient Records regulations: The Federal rules restrict any use of the information to criminally investigate or prosecute any alcohol or drug abuse patient.[facility] Center[facility] the event this information is protected by the Federal Confidentiality of Alcohol and Drug Abuse Patient Records regulations: The Federal rules restrict any use of the information to criminally investigate or prosecute any alcohol or drug abuse patient.[facility] Center[facility] the event this information is protected by the Federal Confidentiality of Alcohol and Drug Abuse Patient Records regulations: The Federal rules restrict any use of the information to criminally investigate or prosecute any alcohol or drug abuse patient.[facility] Scheduled Active and Recently Administ ered Medications [...] Provider: Bertha Scott RN)[phone] (Stopped - Provider: Bretha Scott RN)0948 (New Bag - Provider: Mallorie [...] 1 dose 1139 (Given - Provider: Kelsey Monore, SIMON) mometasone-formoterol (Dulera 100) 100-5 MCG/ACT inhaler [...] RN) 0753 (Given - Provider: Kelsey Monroe, SMION) potassium chloride (Klor-Con) packet 40 mEq (COMPLETED) [...] Kelsey Monroe RN)2046 (Given - Provider: Talya Nnio, SIMON) naloxone (Narcan) injection 0.4 mg 0.4 mg, IntraVENous, Every 5 min PRN, opioid reversal, respiratory depression, Starting on [place] 08/09/23 at 1703, +++ For RR <10, pinpoint pupils, over sedation for opioid reversal - MUST notify client support professional provider immediately after first dose, may give [...] Kelsey Monroe RN)1355 (See Alternative - Provider: Kesley Monroe RN)1815 (See Alternative - Provider: Kelsey [...] and flush line post transfusion, Starting on [facility] 08/11/23 at 1108, For 1 dose, [...] BE BASED ON THE PRIMARY CLINICAL RECORDS. [facility]. provides no warranty or guarantee of the accuracy or completeness of information in this document.
[2025-04-18 14:02] LABS: Reflex Lactate? Y
[2025-04-18] MEDS: Scopolamine 1mg/72hr Patch 1 PATCH TD (14:36)
--- NOTE | 2025-04-18 18:06 | EKG12_ITS ---
Test Reason : O Blood Pressure : */* mmHG Vent. Rate : 121 BPM Atrial Rate : 121 BPM P-R Int : 154 ms QRS Dur : 144 ms QT Int : 434 ms P-R-T Axes : 56 64 24 degrees QTcB Int : 616 ms Sinus tachycardia Right bundle branch block Cannot rule out Inferior infarct (cited on or before 07-Nov-2024) Abnormal ECG When compared with ECG of 05-Jan-2025 17:11, No significant change was found Confirmed by RADHA CLINTON, MG ([id number]), general expeditor JOSIAH FLOOD ([id number]) on 04/20/2025 11:00:06 AM Referred By: TE Confirmed By: MG GARCIA MD
[2025-04-18] MEDS: Metoprolol(XL)Succ 25 MG Tablet 12.5 MG PO (19:56)
[2025-04-18] MEDS: Potassium Chloride Oral Tablet 20 MEQ 40 MEQ PO (19:56)
[2025-04-18 20:04] LABS: Troponin T High Sensitivity 35 ng/L (<=14)
[2025-04-18] MEDS: Budesonide Respules 0.5 MG/2 ML AMPUL.NEB. INHALATION (20:54)
[2025-04-18 21:59] LABS: Troponin T High Sens 2 HR 32 ng/L (<=14)
[2025-04-18 23:49] LABS: Troponin T High Sens 4 HR 28 ng/L (<=14)
[2025-04-19] VITALS (16 sets, daily range): BP systolic 80–132; BP diastolic 51–77; PULSE 90–114; RESP 17–22; TEMP 36.4–36.9; O2SAT 82–100
[2025-04-19] MEDS: 0.9% Saline Lock 10 ML Syringe IV ×2 (00:56→19:45)
[2025-04-19] MEDS: 0.9% Normal Saline (1000mL) 1,000 ML 150 ML IV ×2 (04:47→12:20)
[2025-04-19 05:57] LABS: Hematocrit 29.4 % (37-47); Hemoglobin 8.5 g/dL (12.0-15.0); Immature Granulocytes Count 0.040 X10^3/uL (0.0-0.0); Mean Corp Hgb Conc 28.9 g/dL (32-36); Mean Corpuscular Volume 102.1 fL (81-99); Mean Platelet Vol. 9.7 fl (6.2-12.0); NRBC Flagged by Analyzer 0 % (0-5); POSITIVE DIFFERENTIAL YES; Platelet Count 117 K/mm3 (150-450); RBC Distribution Width CV 14.3 % (11.6-14.6); RBC Distribution Width SD 52.3 fl (35.1-43.9); Red Blood Count 2.88 M/mm3 (4.2-5.4); White Blood Count 5.0 K/mm3 (4.4-11.0)
[2025-04-19 06:32] LABS: Anion Gap 9 (5-15); BUN 27 mg/dL (4-19); BUN/Creat Ratio 15.8 RATIO (10-20); Calcium,Total 8.0 mg/dL (7.6-11.0); Carbon Dioxide 25.9 mmol/L (21.0-32.0); Chloride 107 mmol/L (98-108); Estimated Creatinine Clearance 44.07 ml/min (50-250); Glucose 108 mg/dL (70-99); Potassium 4.5 mmol/L (3.3-5.1)
[2025-04-19] MEDS: Budesonide Respules 0.5 MG/2 ML AMPUL.NEB. INHALATION (07:24)
[2025-04-19] MEDS: Metoprolol(XL)Succ 25 MG Tablet 12.5 MG PO (10:23)
[2025-04-19] MEDS: levoFLOXacin IV 750 MG/150 ML BAG 100 MG IV (10:25)
--- NOTE | 2025-04-19 13:37 | PN_ITS ---
Subjective Subjective Patient seen and examined. She was still complaining of pain in her right flank from the chest contusion. She is on 4 L of oxygen which is her baseline at home. Review of systems otherwise negative. She was tachycardic this morning with heart rate of 114. Objective Data Objective Data Vital Signs: Vital Signs Temp Pulse Resp BP Pulse Ox O2 Del Method O2 Flow Rate 98.0 F 114 H 17 119/51 L 83 Nasal Cannula 4 04/19/25 10:55 04/19/25 10:55 04/19/25 10:55 04/19/25 10:55 04/19/25 11:30 04/19/25 10:55 04/19/25 11:30 Oxygen Flow Rate (L/min) 4 Oxygen Delivery Method Nasal Cannula Weight: 240 lb 4.862 oz Body Mass Index (BMI) 36.5 Intake & Output: Intake and Output for Last 24 Hours 04/17/25 04/18/25 04/19/25 23:59 23:59 23:59 Intake Total 3072.5 / 3072.5 2765 / 2765 Balance 3072.5 / 3072.5 2765 / 2765 Lab / Micro Data 04/19/25 05:20 04/19/25 05:20 Labs: Laboratory Results - last 24 hr 04/18/25 14:44: Lactic Acid 1.7 04/18/25 17:19: POC Glucose 163 H 04/18/25 19:19: Troponin T High Sens 35 H D 04/18/25 21:29: Troponin T Hi Sens 2 Hr 32 H 04/18/25 21:35: Troponin T Hi Sens 4Hr 28 H 04/18/25 22:58: POC Glucose 160 H 04/19/25 05:20: WBC 5.0, RBC 2.88 L, Hgb 8.5 L, Hct 29.4 L, MCV 102.1 H, MCH 29.5, MCHC 28.9 L D, RDW Std Deviation 52.3 H, RDW Coeff of Jaun 14.3, Plt Count 117 L, MPV 9.7, Immature Gran % (Auto) 0.800, Neut % (Auto) 88.2 H, Lymph % (Auto) 6.2 L, [place] % (Auto) 4.8, Eos % (Auto) 0.0, Baso % (Auto) 0.0, Absolute Neuts (auto) 4.4, Absolute Lymphs (auto) 0.31 L, Nucleated RBC % 0, Sodium 143, Potassium 4.5, Chloride 107, Carbon Dioxide 25.9, Anion Gap 9, BUN 27 H, C reatinine 1.69 H, Estim Creat Clear Calc 44.07 L, Est GFR (MDRD) Non-Af 34 L, BUN/Creatinine Ratio 15.8, Glucose 108 H, Calcium 8.0 04/19/25 11:35: POC Glucose 131 H Micro: Microbiology 04/18/25 09:50 Mucosa - Nose SARS-CoV-2, Influenza & RSV (PCR) - Final Physical Exam Const alert Constitutional Narrative: looks uncomfortable due to the right sided musculoskeletal pain. General Appearance: cooperative HEENT normocephalic, head/scalp atraumatic, hearing grossly normal bilaterally and oropharynx normal Eyes PERRL and EOMs intact bilaterally Neck supple Lymph Lymphatic: no lymphedema noted Resp Resp Narrative: mildly diminished breath sounds bibasally, no wheezes or crackles. On room air. Cardio regular rhythm, S1 normal heart sound, S2 normal heart sound and no murmurs Cardio Narrative: tachycardic GI normal to inspection, nondistended, normoactive bowel sounds, soft to palpation and non-tender Extremity normal to inspection, full ROM and no clubbing, cyanosis or edema General Extremity: no tenderness to palpation of joints or extremities Skin General Skin Exam: no breakdown Neuro oriented x3, moves all extremities and no focal motor deficits Sensorium / Orientation: awake and alert Motor Exam: strength 5/5 throughout Psych Psych Narrative: looks uncomfortable Assessment & Plan Assessment/Plan (1) Chest wall contusion: (2) Pneumonia: PLAN: Plan #Chest pain due to mechanical fall with superimposed pneumonia * had mechanical fall with resultant chest contusion. Came in to the ED then but was sent home subsequently. * Came back with pain with and fever as well as tachycardia and shortness of breath. * CT chest/abdomen/pelviss showed no acute cardiopulmonary process, bibasilar atelectasis with small pleural effusions and showed no demonstrated fracture, pleural thickening or pneumothorax; it showed fatty liver with no discrete lesion and retained stool in the colon which may be impacted. * continue IV levaquin. Breathing treatment with bronchodilators * PO tylenol, PO oxycodone and IV morphine prn for pain * incentive spirometry * #Hypokalemia:resolved. #PEDRO on CKD: Creatinine is down to 1.69 today, with a baseline of around 1.2. Improving. WIll monitor #COPD: not in exacerbation. On dulera. Breathing treatment with bronchodilators # Chronic respiratory failure due to COPD: On 2 L of oxygen which is her baseline. Breathing treatments bronchodilators. Titrate oxygen to maintain saturation above 90%. #Type 2 diabetes mellitus: on tirzepatide shot weekly . ISS. Accuchecks ACHS #Hyperlipidemia: on statin #DVT prophylaxis: lovenox Code status: Full code * Charges/Coding Visit Charges Inpatient E&M: 72843 Subs Hosp L2
[2025-04-19 23:41] LABS: Barbiturate Urine NEGATIVE (< 200 ng/mL); Benzodiazepine Urine PRESUMPTIVE POSITIVE (< 200 ng/mL); PCP Urine NEGATIVE (< 25 ng/mL); THC Urine NEGATIVE (< 50 ng/mL)
--- NOTE | 2025-04-19 23:59 | PCM.HOSP.N ---
Hospitalist Note SBP in the 80s, will given 500 cc IVF bolus x 1 and reassess.
[2025-04-20] VITALS (20 sets, daily range): BP systolic 73–130; BP diastolic 47–104; PULSE 76–93; RESP 14–21; TEMP 36.2–36.8; O2SAT 92–100
[2025-04-20] MEDS: fentaNYL 100 MCG/2 ML Ampul 25 MCG IV (00:09)
[2025-04-20] MEDS: 0.9% Normal Saline (500mL Bag) 500 ML 999 ML IV (00:10)
[2025-04-20] MEDS: 0.9% Saline Lock 10 ML Syringe IV ×4 (00:10→23:35)
[2025-04-20 06:04] LABS: Hematocrit 28.5 % (37-47); Hemoglobin 8.3 g/dL (12.0-15.0); Immature Granulocytes Count 0.050 X10^3/uL (0.0-0.0); Mean Corp Hgb Conc 29.1 g/dL (32-36); Mean Corpuscular Volume 102.2 fL (81-99); Mean Platelet Vol. 10.0 fl (6.2-12.0); NRBC Flagged by Analyzer 0.4 % (0-5); Platelet Count 117 K/mm3 (150-450); RBC Distribution Width CV 15.1 % (11.6-14.6); RBC Distribution Width SD 55.7 fl (35.1-43.9); Red Blood Count 2.79 M/mm3 (4.2-5.4); White Blood Count 4.9 K/mm3 (4.4-11.0)
[2025-04-20 06:35] LABS: Anion Gap 10 (5-15); BUN 28 mg/dL (4-19); BUN/Creat Ratio 15.3 RATIO (10-20); Calcium,Total 7.8 mg/dL (7.6-11.0); Carbon Dioxide 22.8 mmol/L (21.0-32.0); Chloride 105 mmol/L (98-108); Estimated Creatinine Clearance 40.26 ml/min (50-250); Glucose 72 mg/dL (70-99); Potassium 3.9 mmol/L (3.3-5.1)
[2025-04-20] MEDS: Budesonide Respules 0.5 MG/2 ML AMPUL.NEB. INHALATION ×2 (07:00→20:32)
[2025-04-20] MEDS: Metoprolol(XL)Succ 25 MG Tablet 12.5 MG PO (08:15)
[2025-04-20] MEDS: levoFLOXacin IV 750 MG/150 ML BAG 150 MG IV (08:33)
--- NOTE | 2025-04-20 08:51 | PN.HOSP_ITS ---
Reason for Visit Chief Complaint: right rib/chest pain Subjective Subjective Still with right lateral chest pain. Objective Data Objective Data Vital Signs: Vital Signs Temp Pulse Resp BP Pulse Ox O2 Del Method O2 Flow Rate 36.6 C 93 14 130/104 H 93 Nasal Cannula 3 04/20/25 06:20 04/20/25 08:15 04/20/25 07:00 04/20/25 08:15 04/20/25 07:00 04/20/25 07:00 04/20/25 07:00 Oxygen Flow Rate (L/min) 3 Oxygen Delivery Method Nasal Cannula Weight: 109 kg Body Mass Index (BMI) 36.5 Intake & Output: Intake and Output for Last 24 Hours 04/18/25 04/19/25 04/20/25 23:59 23:59 23:59 Intake Total 3072.5 / 3072.5 4240 / 4240 500 / 500 Output Total 0 / 0 Balance 3072.5 / 3072.5 4240 / 4240 500 / 500 Lab / Micro Data 04/20/25 05:11 04/20/25 05:11 Labs: Laboratory Results - last 24 hr 04/19/25 11:35: POC Glucose 131 H 04/19/25 17:26: POC Glucose 153 H 04/19/25 22:18: POC Glucose 85 04/19/25 23:01: Urine Opiates Screen PRESUMPTIVE POSITIVE, U Buprenorphine Qual NEGATIVE, Ur Oxycodone Screen PRESUMPTIVE POSITIVE, Urine Methadone Screen NEGATIVE, Urine Fentanyl Screen NEGATIVE, Ur Barbiturates Screen NEGATIVE, Ur Phencyclidine Scrn NEGATIVE, Ur Amphetamines Screen NEGATIVE, U Benzodiazepines Scrn PRESUMPTIVE POSITIVE, Urine Cocaine Screen NEGATIVE, U Cannabinoids Screen NEGATIVE 04/20/25 05:11: WBC 4.9, RBC 2.79 L, Hgb 8.3 L, Hct 28.5 L, MCV 102.2 H, MCH 29.7, MCHC 29.1 L, RDW Std Deviation 55.7 H, RDW Coeff of Jaun 15.1 H, Plt Count 117 L, MPV 10.0, Immature Gran % (Auto) 1.000 H, Neut % (Auto) 69.6, Lymph % (Auto) 19.5, [place] % (Auto) 8.5, Eos % (Auto) 1.2, Baso % (Auto) 0.2, Absolute Neuts (auto) 3.4, Absolute Lymphs (auto) 0.96, Nucleated RBC % 0.4, Sodium 138, Potassium 3.9, Chloride 105, Carbon Dioxide 22.8, Anion Gap 10, BUN 28 H, C reatinine 1.85 H, Estim Creat Clear Calc 40.26 L, Est GFR (MDRD) Non-Af 30 L, BUN/Creatinine Ratio 15.3, Glucose 72, Calcium 7.8 04/20/25 06:03: POC Glucose 73 L Micro: Microbiology 04/18/25 09:50 Mucosa - Nose SARS-CoV-2, Influenza & RSV (PCR) - Final Physical Exam Const alert and no apparent distress Constitutional Narrative: up in bed. non-toxic. Resp normal respiratory effort, no retractions, no use of accessory muscles and clear to auscultation bilaterally Cardio regular rate, regular rhythm, S1 normal heart sound and S2 normal heart sound GI normal to inspection, nondistended, normoactive bowel sounds, soft to palpation, non-tender and non-distended Neuro Sensorium / Orientation: awake and alert Assessment & Plan Assessment/Plan (1) Chest wall contusion: (2) Pneumonia: PLAN: Plan Chest pain due to mechanical fall with superimposed pneumonia * had mechanical fall with resultant chest contusion. Came in to the ED then but was sent home subsequently. * Came back with pain with and fever as well as tachycardia and shortness of breath. * CT chest/abdomen/pelvis showed no acute cardiopulmonary process, bibasilar atelectasis with small pleural effusions and showed no demonstrated fracture, pleural thickening or pneumothorax; it showed fatty liver with no discrete lesion and retained stool in the colon which may be impacted. * continue IV Levaquin. Breathing treatment with bronchodilators * Schedule acetaminophen, ketorolac, lidoderm * add PEP hypokalemia:resolved. Chronic medical conditions: * COPD: not in exacerbation. On dulera. Breathing treatment with bronchodilators * Chronic respiratory failure due to COPD: On 2 L of oxygen which is her baseline. Breathing treatments bronchodilators. Titrate oxygen to maintain saturation above 90%. * Type 2 diabetes mellitus: on tirzepatide shot weekly . ISS. Accuchecks ACHS * Hyperlipidemia: on statin DVT prophylaxis: lovenox Monitor overnight. Hopefully ready for discharge in 1-2 days. Charges/Coding Visit Charges Inpatient E&M: 17311 Subs Hosp L2
[2025-04-20] MEDS: Lidocaine 5% Patch 1 PATCH TOPICAL (12:41)
--- NOTE | 2025-04-20 13:17 | CASEMGMT ---
SIMON LEONARD Assessment Face to Face with patient for initial transition planning/care coordination assessment. SIMON LEONARD introduced self and role at [facility], pt voices understanding. Pt is A&Ox4 and is resting comfortably in bed and is calm. Care providers, pharmacy, and demographics verified. Admitting dx: Chest Contusion, SOB LACE Strata: 3 PCP: Corin Mariscal Specialists: [facility], [facility] (nephro), [facility] Preferred [facility]acy: [facility] Insurance: [place] [facility] [place], [facility] Prescription Benefit: Yes LNOK: Laura (Sister), Carlita (Sister) Living Arrangements: Pt lives alone in a single story, ground level apartment with a flat entrance ADLs/IADLs: Pt states that she is indep. Per PT notes, no additional tx recommended Transportation: Self, family DME: Home oxygen through [employer] (Verified 3L cont, 2L HS bled into pts BiPAP). Pt states that she has a concentrator, portable tanks (Has one here in the hospital), and a pulse ox. Pt has a functioning BGM with sufficient testing supplies including lancets, test strips, and EtOH swabs.?Pt also has a FWW, rollator, shower chair, and BSC. HHC/SNF: Reports hx with [facility] HH and hx @ [facility]. Pt has also been to a SNF in [place] but cannot recall the name Pt?s goal: Home Plan: Home, follow for updated oxygen needs. Pt currently denies the need for any form of additional therapy. Pt denies the need for additional resources. Pt states that she feels safe going home once medically ready and states that she has support through her siblings (x2 sisters and x1 brother). Pt denies further questions or concerns at this time. Report given to PROFESSOR OF PATHOLOGY CM. Maria Alejandra Easley RN, CM
[2025-04-20] MEDS: 0.9% Normal Saline (1000mL) 1,000 ML 999 ML IV ×2 (18:33→20:12)
--- NOTE | 2025-04-20 20:21 | PCM.PN.HOSP ---
Reason for Visit Chief Complaint: right rib/chest pain Subjective Subjective Change in mental status Objective Data Objective Data Vital Signs: Vital Signs Temp Pulse Resp BP Pulse Ox O2 Del Method O2 Flow Rate 97.6 F L 89 16 77/54 L 98 Nasal Cannula 4 04/20/25 19:15 04/20/25 19:15 04/20/25 19:15 04/20/25 19:15 04/20/25 19:15 04/20/25 19:15 04/20/25 19:15 Oxygen Flow Rate (L/min) 4 Oxygen Delivery Method Nasal Cannula Weight: 240 lb 4.862 oz Body Mass Index (BMI) 36.5 Intake & Output: Intake and Output for Last 24 Hours 04/18/25 04/19/25 04/20/25 23:59 23:59 23:59 Intake Total 3072.5 / 3072.5 4240 / 4240 1650 / 1650 Output Total 0 / 0 Balance 3072.5 / 3072.5 4240 / 4240 1650 / 1650 Lab / Micro Data 04/20/25 05:11 04/20/25 05:11 Labs: Laboratory Results - last 24 hr 04/19/25 22:18: POC Glucose 85 04/19/25 23:01: Urine Opiates Screen PRESUMPTIVE POSITIVE, U Buprenorphine Qual NEGATIVE, Ur Oxycodone Screen PRESUMPTIVE POSITIVE, Urine Methadone Screen NEGATIVE, Urine Fentanyl Screen NEGATIVE, Ur Barbiturates Screen NEGATIVE, Ur Phencyclidine Scrn NEGATIVE, Ur Amphetamines Screen NEGATIVE, U Benzodiazepines Scrn PRESUMPTIVE POSITIVE, Urine Cocaine Screen NEGATIVE, U Cannabinoids Screen NEGATIVE 04/20/25 05:11: WBC 4.9, RBC 2.79 L, Hgb 8.3 L, Hct 28.5 L, MCV 102.2 H, MCH 29.7, MCHC 29.1 L, RDW Std Deviation 55.7 H, RDW Coeff of Jaun 15.1 H, Plt Count 117 L, MPV 10.0, Immature Gran % (Auto) 1.000 H, Neut % (Auto) 69.6, Lymph % (Auto) 19.5, [place] % (Auto) 8.5, Eos % (Auto) 1.2, Baso % (Auto) 0.2, Absolute Neuts (auto) 3.4, Absolute Lymphs (auto) 0.96, Nucleated RBC % 0.4, Sodium 138, Potassium 3.9, Chloride 105, Carbon Dioxide 22.8, Anion Gap 10, BUN 28 H, Creatinine 1.85 H, Estim Creat Clear Calc 40.26 L, Est GFR (MDRD) Non-Af 30 L, BUN/Creatinine Ratio 15.3, Glucose 72, Calcium 7.8 04/20/25 06:03: POC Glucose 73 L 04/20/25 11:26: POC Glucose 75 04/20/25 17:25: POC Glucose 108 H Micro: Microbiology 04/18/25 11:55 Blood Culture (Wb) - Anticubital Left Blood Culture - Preliminary No growth in 48 hours. 04/18/25 09:50 Blood Culture (Wb) - Left Wrist Blood Culture - Preliminary No growth in 48 hours. 04/18/25 09:50 Mucosa - Nose SARS-CoV-2, Influenza & RSV (PCR) - Final Physical Exam Const Orientation / Consciousness: confused, disoriented and lethargic Resp normal respiratory effort, no use of accessory muscles and clear to auscultation bilaterally Cardio regular rate, regular rhythm, S1 normal heart sound and S2 normal heart sound Neuro moves all extremities Assessment & Plan Assessment/Plan (1) Opiate abuse, continuous: PLAN: Plan 1 change in mental status?patient has significant past medical history of opiate abuse last prescribed dose of opiate was fentanyl earlier this morning however, patient was noted to be obtunded I was called to the further evaluate. Patient had blood sugar of 66 and amp of D10 was given, patient was hypotensive with a MAP of 60 and normal saline bolus was given x 2 L. Due to her history of opiate abuse and suspicion I ordered 2 mg of Narcan which was given and patient became immediately alert and responsive moving all extremities without any neurologic deficit. Instructions were then given to the nurse to monitor neurologic status as the Narcan may wear off and what ever opiates she may have taken from her personal supply may start to take action again. I encouraged nursing staff to keep her personal belongings out of reach and if patient has continued pain this evening we will use Toradol, ibuprofen or Tylenol and avoid all narcotics.
--- NOTE | 2025-04-20 20:39 | NURSING ---
This RN went into the patients room to assess pt at 1930. Patient was minimally responsive, pale, confused. BP was 77/54. Blood glucose was 67. The patient had just finished a 1L bolus of normal saline. Dr. Dye was asked to come to bedside at 194 and arrived at 1954. Stat CBC, BMP, ABG was placed and patient was given D10 as per hypoglycemic protocol. Patient was also given another 1L bolus of normal saline. Given the lack of improvement in mental status Dr. Dye ordered IV Narcan. After administration of the Narcan patient was alert, and answering question appropriately.
[2025-04-20 20:55] LABS: Base Excess -6 mmol/L (-2 to +2); FI02 3.0; PO2 95 mmHG (75-100); SITE R Radial; SO2 95 % (94-98)
[2025-04-20 22:52] LABS: Hematocrit 29.8 % (37-47); Hemoglobin 8.7 g/dL (12.0-15.0); Immature Granulocytes Count 0.030 X10^3/uL (0.0-0.0); Mean Corp Hgb Conc 29.2 g/dL (32-36); Mean Corpuscular Volume 101.4 fL (81-99); Mean Platelet Vol. 9.9 fl (6.2-12.0); NRBC Flagged by Analyzer 0.5 % (0-5); POSITIVE DIFFERENTIAL YES; Platelet Count 105 K/mm3 (150-450); RBC Distribution Width CV 14.9 % (11.6-14.6); RBC Distribution Width SD 55.1 fl (35.1-43.9); Red Blood Count 2.94 M/mm3 (4.2-5.4); White Blood Count 3.9 K/mm3 (4.4-11.0)
[2025-04-20 23:46] LABS: Anion Gap 10 (5-15); BUN 30 mg/dL (4-19); BUN/Creat Ratio 17.3 RATIO (10-20); Calcium,Total 7.4 mg/dL (7.6-11.0); Carbon Dioxide 19.9 mmol/L (21.0-32.0); Chloride 105 mmol/L (98-108); Estimated Creatinine Clearance 43.56 ml/min (50-250); Glucose 93 mg/dL (70-99); Potassium 4.4 mmol/L (3.3-5.1)
[2025-04-21] VITALS (18 sets, daily range): BP systolic 58–141; BP diastolic 43–110; PULSE 82–92; RESP 15–20; TEMP 35.8–36.9; O2SAT 93–99
[2025-04-21] MEDS: 0.9% Normal Saline (500mL Bag) 500 ML 999 ML IV ×2 (01:56→03:00)
[2025-04-21] MEDS: 0.9% Saline Lock 10 ML Syringe IV (06:42)
[2025-04-21] MEDS: Budesonide Respules 0.5 MG/2 ML AMPUL.NEB. INHALATION ×2 (07:05→19:25)
[2025-04-21 07:34] LABS: Hematocrit 27.2 % (37-47); Hemoglobin 8.1 g/dL (12.0-15.0); Immature Granulocytes Count 0.030 X10^3/uL (0.0-0.0); Mean Corp Hgb Conc 29.8 g/dL (32-36); Mean Corpuscular Volume 98.9 fL (81-99); Mean Platelet Vol. 9.6 fl (6.2-12.0); NRBC Flagged by Analyzer 0 % (0-5); POSITIVE COUNT YES; POSITIVE DIFFERENTIAL YES; Platelet Count 94 K/mm3 (150-450); RBC Distribution Width CV 14.8 % (11.6-14.6); RBC Distribution Width SD 52.5 fl (35.1-43.9); Red Blood Count 2.75 M/mm3 (4.2-5.4); White Blood Count 3.8 K/mm3 (4.4-11.0)
[2025-04-21 07:35] LABS: Differential Indicated SCAN CRITERIA MET
[2025-04-21 07:58] LABS: Differential Comment SCANNED
--- NOTE | 2025-04-21 08:20 | PN.HOSP_ITS ---
Reason for Visit Chief Complaint: right rib/chest pain Subjective Subjective Events reviewed. Somnolent overnight, awoke briefly with Narcan. Patient denies surreptitious use of drugs. Objective Data Objective Data Vital Signs: Vital Signs Temp Pulse Resp BP Pulse Ox O2 Del Method O2 Flow Rate 36.7 C 89 16 85/62 L 93 Nasal Cannula 3 04/21/25 06:50 04/21/25 07:06 04/21/25 07:06 04/21/25 06:50 04/21/25 07:06 04/21/25 07:06 04/21/25 07:06 Oxygen Flow Rate (L/min) 3 Oxygen Delivery Method Nasal Cannula Weight: 109 kg Body Mass Index (BMI) 36.5 Intake & Output: Intake and Output for Last 24 Hours 04/19/25 04/20/25 04/21/25 23:59 23:59 23:59 Intake Total 4240 / 4240 3600 / 3600 1600 / 1600 Output Total 0 / 0 1000 / 1000 Balance 4240 / 4240 3600 / 3600 600 / 600 Lab / Micro Data 04/21/25 07:20 04/21/25 07:20 Labs: Laboratory Results - last 24 hr 04/20/25 11:26: POC Glucose 75 04/20/25 17:25: POC Glucose 108 H 04/20/25 19:45: POC Glucose 67 L 04/20/25 20:17: POC Glucose 166 H 04/20/25 21:48: POC Glucose 87 04/20/25 22:27: WBC 3.9 L, RBC 2.94 L, Hgb 8.7 L, Hct 29.8 L, MCV 101.4 H, MCH 29.6, MCHC 29.2 L, RDW Std Deviation 55.1 H, RDW Coeff of Jaun 14.9 H, Plt Count 105 L, MPV 9.9, Immature Gran % (Auto) 0.800, Neut % (Auto) 84.7 H, Lymph % (Auto) 8.6 L, Beau[place] % (Auto) 4.8, Eos % (Auto) 0.8, Baso % (Auto) 0.3, Absolute Neuts (auto) 3.3, Absolute Lymphs (auto) 0.34 L, Nucleated RBC % 0.5, Sodium 135, Potassium 4.4, Chloride 105, Carbon Dioxide 19.9 L, Anion Gap 10, BUN 30 H, Creatinine 1.71 H, Estim Creat Clear Calc 43.56 L, Est GFR (MDRD) Non-Af 33 L, BUN/Creatinine Ratio 17.3, Glucose 93, Calcium 7.4 L 04/21/25 07:20: WBC 3.8 L, RBC 2.75 L, Hgb 8.1 L, Hct 27.2 L, MCV 98.9, MCH 29.5, MCHC 29.8 L, RDW Std Deviation 52.5 H, RDW Coeff of Jaun 14.8 H, Plt Count 94 L, MPV 9.6, Immature Gran % (Auto) 0.800, Neut % (Auto) 81.4 H, Lymph % (Auto) 10.1 L, Beau[place] % (Auto) 6.6, Eos % (Auto) 0.8, Baso % (Auto) 0.3, Absolute Neuts (auto) 3.1, Absolute Lymphs (auto) 0.38 L, Nucleated RBC % 0, Differential Comment SCANNED, Platelet Estimate MOD DEC Micro: Microbiology 04/18/25 11:55 Blood Culture (Wb) - Anticubital Left Blood Culture - Preliminary No growth in 48 hours. 04/18/25 09:50 Blood Culture (Wb) - Left Wrist Blood Culture - Preliminary No growth in 48 hours. 04/18/25 09:50 Mucosa - Nose SARS-CoV-2, Influenza & RSV (PCR) - Final ABG Data ABG results: ABG 04/20/25 20:49 Specimen Type ART Sample Site R Radial pH 7.20 L* Bicarbonate Actual 22.0 Total CO2 24 Base Excess -6 L O2 Saturation 95 O2 % 3.0 ABG pCO2 56.3 H ABG pO2 95 Arian Test N/A O2 Delivery Device Cannula Vent Mode Not entered Crit Call To/Read Back Yes Blood Gas Notified Whom Dr. Aquino Blood Gas Notified Time 20:52:18 Physical Exam Const alert Constitutional Narrative: anxious. no respiratory distress. no conversational dyspnea. HEENT head/scalp atraumatic and moist oral mucous membranes Neck Neck Narrative: glasses. Extremity normal to inspection and full ROM Neuro moves all extremities Sensorium / Orientation: awake and alert Psych Mood & Affect: anxious Assessment & Plan Assessment/Plan (1) Respiratory failure: PLAN: Plan Chest pain due to mechanical fall with superimposed pneumonia * had mechanical fall with resultant chest contusion. Came in to the ED then but was sent home subsequently. * Came back with pain with and fever as well as tachycardia and shortness of breath. * CT chest/abdomen/pelvis showed no acute cardiopulmonary process, bibasilar atelectasis with small pleural effusions and showed no demonstrated fracture, pleural thickening or pneumothorax; it showed fatty liver with no discrete lesion and retained stool in the colon which may be impacted. * continue IV Levaquin. Breathing treatment with bronchodilators * Schedule acetaminophen, ketorolac, lidoderm * add PEP hypokalemia:resolved. Somnolence with hypotension * received narcan and did improve. * DC opiates and benzodiazepines. * Patient denies use of drugs * Offered to monitor the patient overnight to ensure she did not have any further issues as it is unclear what may have transpired last night. Chronic medical conditions: * COPD: not in exacerbation. On dulera. Breathing treatment with bronchodilators * Chronic respiratory failure due to COPD: On 2 L of oxygen which is her baseline. Breathing treatments bronchodilators. Titrate oxygen to maintain saturation above 90%. * Type 2 diabetes mellitus: on tirzepatide shot weekly . ISS. Accuchecks ACHS * Hyperlipidemia: on statin DVT prophylaxis: lovenox Charges/Coding Visit Charges Inpatient E&M: 32483 Subs Hosp L2
[2025-04-21 08:27] LABS: Anion Gap 9 (5-15); BUN 29 mg/dL (4-19); BUN/Creat Ratio 16.6 RATIO (10-20); Calcium,Total 6.8 mg/dL (7.6-11.0); Carbon Dioxide 20.1 mmol/L (21.0-32.0); Chloride 106 mmol/L (98-108); Estimated Creatinine Clearance 43.06 ml/min (50-250); Glucose 81 mg/dL (70-99); Potassium 3.9 mmol/L (3.3-5.1)
[2025-04-21] MEDS: Metoprolol(XL)Succ 25 MG Tablet 12.5 MG PO (09:18)
[2025-04-21] MEDS: Lidocaine 5% Patch 1 PATCH TOPICAL (09:20)
[2025-04-21] MEDS: Scopolamine 1mg/72hr Patch 1 PATCH TD (12:49)
[2025-04-22] VITALS (15 sets, daily range): BP systolic 86–105; BP diastolic 58–72; PULSE 75–88; RESP 16–22; TEMP 35.8–36.7; O2SAT 93–99
[2025-04-22] MEDS: Budesonide Respules 0.5 MG/2 ML AMPUL.NEB. INHALATION (07:06)
[2025-04-22] MEDS: 0.9% Saline Lock 10 ML Syringe IV (09:03)
[2025-04-22] MEDS: Lidocaine 5% Patch 1 PATCH TOPICAL (09:04)
[2025-04-22] MEDS: 0.9% Normal Saline (250mL Bag) 250 ML 15 ML IV (09:23)
[2025-04-22] MEDS: levoFLOXacin IV 750 MG/150 ML BAG 100 MG IV (09:24)
--- NOTE | 2025-04-22 14:13 | DS.PCM_ITS ---
Providers Date of Admission: 04/18/25 Primary Care Physician: Corin Mariscal MD Reason For Visit: CHEST CONTUSION, SHORTNESS OF BREATH Diagnosis Discharge Diagnosis (1) Respiratory failure: Status: Acute Code(s): J96.90 - Respiratory failure, unspecified, unspecified whether with hypoxia or hypercapnia Plan Chest pain due to mechanical fall with superimposed pneumonia * had mechanical fall with resultant chest contusion. Came in to the ED then but was sent home subsequently. * Came back with pain with and fever as well as tachycardia and shortness of breath. * CT chest/abdomen/pelvis showed no acute cardiopulmonary process, bibasilar atelectasis with small pleural effusions and showed no demonstrated fracture, pleural thickening or pneumothorax; it showed fatty liver with no discrete lesion and retained stool in the colon which may be impacted. * continue IV Levaquin. Breathing treatment with bronchodilators * Schedule acetaminophen, ketorolac, lidoderm * add PEP hypokalemia:resolved. Somnolence with hypotension * received narcan and did improve. * DC opiates and benzodiazepines. * Patient denies use of drugs and none were found on her. * Patient monitored overnight and no further events. Explained to the patient that it is unclear what the etiology of the event was, but she did have documented improvement with narcan. Chronic medical conditions: * COPD: not in exacerbation. On dulera. Breathing treatment with bronchodilators * Chronic respiratory failure due to COPD: On 2 L of oxygen which is her baseline. Breathing treatments bronchodilators. Titrate oxygen to maintain saturation above 90%. * Type 2 diabetes mellitus: on tirzepatide shot weekly . ISS. Accuchecks ACHS * Hyperlipidemia: on statin Case discussed with RN, CM, SW, fiberglass quality technician, nursing toy assembly supervisor. Medications at Discharge Home Medications mometasone-formoterol HFA 100 mcg-5 mcg/actuation aerosol inhaler (Dulera) 2 puff inhalation BID SHORTNESS OF BREATH/WHEEZING #13 grams 03/05/23 linaclotide 290 mcg capsule (Linzess) 290 mcg PO DAILY bowel function 01/28/24 trospium 20 mg tablet 20 mg PO BID see 01/28/24 albuterol sulfate 90 mcg/actuation aerosol inhaler 1 puff inhalation Q6H PRN shortness of breath or wheezing #6.7 grams 07/17/24 ferrous sulfate 325 mg (65 mg iron) tablet (iron) 325 mg PO QDAY Supplement 08/09/24 alprazolam 0.5 mg tablet 0.5 mg PO BID PRN anxiety #6 tabs 11/10/24 acetaminophen 500 mg tablet 1,000 mg (2 x 500 mg) PO Q6H PRN PRN Pain Score 1-10 #0 tabs 11/19/24 ondansetron 8 mg disintegrating tablet 8 mg PO Q8H PRN nausea and vomiting 30 days #90 tabs 02/16/25 pantoprazole 40 mg tablet,delayed release 40 mg PO BID ACID REFLUX 02/16/25 scopolamine base 1 mg over 3 days transdermal patch 1 patch transdermal Q72H #10 ea 02/16/25 doxepin 25 mg capsule 25 mg PO QHS 04/13/25 hydrocodone-acetaminophen 5-325mg 5mg-325mg 1 tab PO Q4H PRN PRN Pain 2 days #14 TABLETS 04/13/25 baclofen 10 mg tablet 10 mg PO DAILY 04/18/25 naproxen 500 mg tablet 500 mg PO BID 04/18/25 temazepam 15 mg capsule 30 mg PO DAILY 04/18/25 OXYGEN - Supplemental ([facility] INFORMATIONAL USE ONLY) 04/19/25 levofloxacin 500 mg tablet 500 mg PO DAILY #3 tabs 04/22/25 lidocaine 5 % topical patch 1 patch topical DAILY #30 ea 04/22/25 Physical Exam Const alert Constitutional Narrative: anxious. no respiratory distress. no conversational dyspnea. Orientation / Consciousness: awake HEENT normocephalic Weight / BMI Weight Weight: 109 kg Body Mass Index (BMI) 36.5 ABG / Lab / Microbiology Data 04/21/25 07:20 04/21/25 07:20 Laboratory: Laboratory Results - last 24 hr 04/21/25 17:37: POC Glucose 91 04/21/25 21:04: POC Glucose 102 04/22/25 06:41: POC Glucose 75 04/22/25 11:48: POC Glucose 69 L 04/22/25 12:10: POC Glucose 88 Microbiology: Microbiology 04/18/25 11:55 Blood Culture (Wb) - Anticubital Left Blood Culture - Preliminary No growth in 48 hours. 04/18/25 09:50 Blood Culture (Wb) - Left Wrist Blood Culture - Preliminary No growth in 48 hours. 04/18/25 09:50 Mucosa - Nose SARS-CoV-2, Influenza & RSV (PCR) - Final D/C Instructions DC O2, CPAP, BIPAP Needs Home O2 Discharge instructions: Yes Type of respiratory needs?: Oxygen Oxygen frequency: Continuous Continuous oxygen liters per minute: 3 DC home with Oxygen: Yes Home O2 MD Review: I have reviewed the oxygen testing, and the patient qualifies for home oxygen equipment and portability. The patient is mobile in the home and the community. Meaningful Use Info Meaningful Use Meaningful Use Diagnoses (Choose all that apply): None applicable Discharge Plan Admission Admit Date/Time: 04/18/25 11:44 Primary Reason for Your Visit: Chest wall pain. Attending Provider: Blayne Santana Primary Care Provider: Corin Mariscal Consulting Providers: Trice Contreras Discharge Orders/Prescriptions Prescriptions: New lidocaine 5 % Adhesive Patch,Medicated 1 patch topical DAILY Qty: 30 0RF Protocol: *Topical Application Instructions APPLICATION INSTRUCTIONS: rt flank levofloxacin 500 mg tablet 500 mg PO DAILY Qty: 3 0RF Continued Dulera 100-5 mcg/actuation HFA aerosol inhaler 2 puff inhalation BID Qty: 13 3RF scopolamine base 1 mg over 3 days patch 3 day 1 patch transdermal Q72H Qty: 10 1RF ondansetron 8 mg tablet,disintegrating 8 mg PO Q8H PRN (Reason: nausea and vomiting) 30 Days Qty: 90 1RF pantoprazole 40 mg tablet,delayed release (DR/EC) 40 mg PO BID ferrous sulfate [iron] 325 mg (65 mg iron) tablet 325 mg PO QDAY alprazolam 0.5 mg tablet 0.5 mg PO BID PRN (Reason: anxiety) Qty: 6 0RF acetaminophen 500 mg Tablet 1,000 mg PO Q6H PRN PRN (Reason: Pain Score 1-10) Qty: 0 0RF doxepin 25 mg capsule 25 mg PO QHS hydrocodone-acetaminophen 5-325 mg tablet 1 tab PO Q4H PRN PRN (Reason: Pain) 2 Days Qty: 14 0RF Linzess 290 mcg capsule 290 mcg PO DAILY trospium 20 mg tablet 20 mg PO BID albuterol sulfate 90 mcg/actuation HFA aerosol inhaler 1 puff inhalation Q6H PRN (Reason: shortness of breath or wheezing) Qty: 6.7 0RF temazepam 15 mg capsule 30 mg PO DAILY baclofen 10 mg tablet 10 mg PO DAILY naproxen 500 mg tablet 500 mg PO BID (DME) OXYGEN - Supplemental ([facility] INFORMATIONAL USE ONLY) 0 .ROUTE .MEDSUPPLY Patient Comments: 2lpm continuous Discontinued Mounjaro 7.5 mg/0.5 mL pen injector 7.5 mg subcut QWEEK prednisone 10 mg tablet See Taper PO Taper: Prednisone Taper 40 mg WITH BREAKFAST for 4 Days 30 mg WITH BREAKFAST for 3 Days 20 mg WITH BREAKFAST for 2 Days 10 mg WITH BREAKFAST for 1 Day Referrals / Follow Up: Corin Mariscal MD [Primary Care Provider, Family Practice] Addison Romero Chi, MD [Med Staff - Active Staff, Geriatrics] Disposition Disposition (needs filled in before D/C Order can be placed): Home, Self Care Charges/Coding Visit Charges Inpatient E&M: 53654 Disch Hosp >30min
--- NOTE | 2025-04-22 14:20 | CASEMGMT ---
Social Work Referral Source: Nursing Hematology Supervisor Reason for referral: Patient support Spoke with Dr. Santana and then met with patient in room, introducing to self and role. Current situation/patient complaint related to reson for social work visit: Patient shared reason for admission relating to falling out of bed at home, hitting ribs on a bedside table during the fall, and then later coming to the hospital and being diagnosed with pneumonia. Endorses rib pain since the fall, and that pain along with pneumonia were being addressed during this stay. Patient shared her experience earlier in this stay, where patient was given Narcan. Patient shared that had been prescribed so much morphine during the stay, to help with the pain. Reports there was an incident on Sunday night/Sunday morning (04/20/25) where patient came awake and saw people all around, standing there. Patient acknowledges to social insurance adviser that had been given Narcan. Patient reports after coming awake saw provider standing by the sink talking to a nurse, and then provider leaving the room. Patient reports later on, was in and out again, but more aware of things than first episode which required Narcan. States heard the nurse on the phone talking to the doctor, and that the doctor gave order for another dose of Narcan. Patient expressed anger and frustration learning from daytime provider the next day of the nighttime doctor's reports that patient was using drugs, when the daytime provider was not directly involved. Patient reports being upset, asserting nighttime provider never spoke with patient this stay, so how would the provider know if patient took any substances outside of what the hospital prescribed. Patient asked where the proof is. Patient also preoccupied as to how nighttime provider, Dr. Aquino, came to document or be in patient's chart. This service writer educated that this provider was on shift when patient became unresponsive, and as the provider ordering medications to help the patient, the provider must document involvement and reasoning to support orders given. Patient reports this explanation makes sense. Patient denied to this service writer any illicit drug use or taking any home medications concurrently to what hospital has been prescribing. Patient shares that after first time being given Narcan, she gave permission for her purse to be searched, which no untoward items were reportedly found relating to illicit substance use. Note, patient also upset that daytime hospitalist asked about patient using drugs and taking the word from the nighttime hospitalist, though stated will defend the daytime hospitalist as felt the daytime hospitalist was trying to figure things out. 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 Patient reports has been working on sobriety, not drinking alcohol in 4 years, and no abuse of opiates, though the timeframe regarding cessation of opiates was not clear to this service writer. Did explore whether patient has a sober date from alcohol, but patient did not have a specific date. Patient reports past choices have led to disconnect with her adult children, who have had nothing to do with the patient in the last 3 years. Patient reports to feel like she actually this admission (when had to be given the Narcan), and upset the next day she had no one present to support her. Reports called her daughter Harsha, despite patient's sisters telling patient not to, to tell Harsha that patient . Patient reports Harsha did not believe the patient, which patient became tearful recounting conversation to this service writer. Patient tearful stating that spent too much time and worked hard with mental health professionals over the last few years, and that patient has been hoping this might help repair relationship with her children; patient now fearful after receiving Narcan, of being accused' of using drugs, that this will do irreparable damage in relationships with her family. Patient states to have a grandson who is in nursing school, and who has been monitoring patient's medications at home, which has been helpful to show accountability and build trust. Patient reports the grandson is a nursing associate at [employer] [employer] [employer] right now, though acknowledged the grandson is also not aware of what happened, unless patient chooses to update. Patient reports 2 sisters as supports. Community Supports: PCP: Dr. Mariscal, then tried Dr. Romero, and now plans to go back to Dr. Mariscal. This service writer actually explored whether patient as comfortable with this choice, as Dr. Mariscal is in same practice as the provider patient is angry with. Patient reports to feel comfortable and feels patient's current expressed frustrations can be kept . Nephrology: Dr. Winkler Pulmonology: Melissa Campoverde [facility]: pianos and organs salesperson Mily Colindres and therapist Katharine Curry. Showed this service writer card with appointment with Mily on [phone] (this service writer communicated such to CHEMICAL BLENDER Jessa Marya who is placing appt into the EMR DC plan). Summary: Broached with patient that medical providers and health care workers have to have hard conversations sometimes, and this means asking hard questions based on what is being observed or in trying to figure out what is going on. Patient acknowledged this but more focused on this as appropriate practice from the Emergency Department. Explored patient's goals and hopes relating to moving forward. Patient reports would like an apology from the provider but that won't ever happen, though reported nurses and other staff have apologized. This service writer gently explored with patient, helping to refocus patient ruminating on family rejecting patient for something the family does not even know about, as well as touched on the fragility of trust and addiction in families. Attempted to explore patient's own expectations of self and how this translates to emotions relating to her children. Also guided conversation to patient's reported history as a nurse and personal therapeutic work with outpatient mental health providers - that patient is unable to make others accept or respond to patient as patient may want. Explored with patient as to who patient has control over (herself only), staying focused on self and own personal knowledge of the choices patient is making in life. Much emotional support offered, validation and encouragement related to patient being able to voice concerns, as well as continued engagement in outpatient mental health treatment. Educated patient that if patient feels she is not ready for discharge, as mentioned did not think should go home until antibiotics are done, that patient can appeal discharge. Educated patient however, that people can and do discharge on antibiotics. Patient informed this service writer that would be agreeable to go home tomorrow if needed. Informed patient she may be ready today. Patient also agreeable for discharge today too. This service writer verified with Dr. Santana, that patient is ready for d/c. Returned to room to update. Patient was smiling and affect appearing relaxed during second encounter, and shared that had been further reflecting on hope for the future, and hopes for kindness. Patient reported agreeable to go home, and denied needs other than whether patient might need walking therapy. Let patient know that [facility] will follow up on whether patient qualifies for either HHC or Outpatient PT. Patient accepting, denies other needs from social work, reports intent to follow up with outpatients providers including mental health on 04.27.25 at 1100 with Mily Colindres. Note, the patient did make comments during social work visit that she wants to see all her records and is thinking of getting an corporate attorney. Let patient know this is her right to do so, and if patient wants her records then must go through medical records to request documents. Patient also made comment that appreciated talking to this service writer so this service writer could help patient know what to do. Patient brought this topic back up at end of conversation asking if all was good and to confirm that patient did not need to call a steam and gas turbine assembler. This service writer informed patient that it is not this service writer's job to tell patient to call an corporate attorney or not, but is patient's choice and right to do so if patient feels this is appropriate. Educated patient that if patient feels comfortable with conversation with this service writer and patient chooses to not call corporate attorney, this is fine and patient's choice. Educated patient that if patient is still concerned, and wants to request records and call an corporate attorney, then this is also patient's choice/right to do so. Patient expressed that for now will pursue getting records. Reinforced patient will need to sign a release of information with medical records when patient is ready to do so. Patient thanked this service writer for time and allowing patient to talk through concerns, stating to feel better and the talk helped. Patient also voiced compliments about nursing staff calling the nurses on more than one occasion badass. Handoff to RN HORACIO for f/u related to Home vs Outpatient PT needs. Updated PCU dado operator. Updated associate sales/PERC team, including patient comfortable with discharge and appreciative of time to talk through thoughts and emotions. Plan: Discharge to home, follow up at [facility], has home O2, SIMON LEONARD to follow up for possible HHC vs Outpatient PT. No other needs requested or indicated from SW perspective. -KASEY Maloney
--- NOTE | 2025-04-22 15:25 | PHA.DC_ITS ---
Pharmacy [facility] Counseling Pharmacy Service has performed discharge medication reconciliation and counseling for this patient. 1. LEVOFLOXACIN 500MG PO DAILY X 3 DAYS 2. LIDOCAINE 5% PATCH 1 PATCH TOPICAL DAILY The patient's discharge medication list was reviewed for discrepancies and discrepancies were resolved. The patient was counseled on the following discharge medications and changes in medications for homegoing were reviewed. The Reason for Use, instructions for use, and potential side effects were reviewed for all new medications. The patient's questions regarding all of their medications were answered. The patient was able to verbally demonstrate an understanding of their discharge medications. Medications at Discharge Home Medications mometasone-formoterol HFA 100 mcg-5 mcg/actuation aerosol inhaler (Dulera) 2 puff inhalation BID SHORTNESS OF BREATH/WHEEZING #13 grams 03/05/23 linaclotide 290 mcg capsule (Linzess) 290 mcg PO DAILY bowel function 01/28/24 trospium 20 mg tablet 20 mg PO BID see 01/28/24 albuterol sulfate 90 mcg/actuation aerosol inhaler 1 puff inhalation Q6H PRN shortness of breath or wheezing #6.7 grams 07/17/24 ferrous sulfate 325 mg (65 mg iron) tablet (iron) 325 mg PO QDAY Supplement 08/09/24 alprazolam 0.5 mg tablet 0.5 mg PO BID PRN anxiety #6 tabs 11/10/24 acetaminophen 500 mg tablet 1,000 mg (2 x 500 mg) PO Q6H PRN PRN Pain Score 1-10 #0 tabs 11/19/24 ondansetron 8 mg disintegrating tablet 8 mg PO Q8H PRN nausea and vomiting 30 days #90 tabs 02/16/25 pantoprazole 40 mg tablet,delayed release 40 mg PO BID ACID REFLUX 02/16/25 scopolamine base 1 mg over 3 days transdermal patch 1 patch transdermal Q72H #10 ea 02/16/25 doxepin 25 mg capsule 25 mg PO QHS 04/13/25 hydrocodone-acetaminophen 5-325mg 5mg-325mg 1 tab PO Q4H PRN PRN Pain 2 days #14 TABLETS 04/13/25 baclofen 10 mg tablet 10 mg PO DAILY 04/18/25 naproxen 500 mg tablet 500 mg PO BID 04/18/25 temazepam 15 mg capsule 30 mg PO DAILY 04/18/25 OXYGEN - Supplemental ([facility] INFORMATIONAL USE ONLY) 04/19/25 levofloxacin 500 mg tablet 500 mg PO DAILY #3 tabs 04/22/25 lidocaine 5 % topical patch 1 patch topical DAILY #30 ea 04/22/25
--- NOTE | 2025-04-22 15:28 | CASEMGMT ---
SIMON LEONARD updated by [place] that patient was asking about therapy at discharge. SIMON LEONARD reviewed therapy documentation, patient ambulated 25ft SBA. SIMON LEONARD in to discuss therapy at discharge with patient. Patient states she wasn't sure if she needed therapy at discharge. SIMON LEONARD discussed outpatient therapy with patient. Patient states she is interested in outpatient therapy but want to see how she does at home first. SIMON LEONARD updated patient that she will get script for outpatien therapy for patient and if she thinks she would benefit from therapy, she can schedule it at her facility of choice. Patient voiced understanding and is agreeable to plan. Patient had no further questions or concern. SIMON LEONARD obtained script for outpatient therapy from hospitalist and placed in patient's discharge packet with [facility] information.
== END 2025-04-22 16:44 | disposition home or self-care (01) | DRG 194 ==
LOC: ED 11:29 → PCU 12:13
PROVIDERS: Family Medicine; Admitting Provider Student in an Organized Health Care Education/Training Program; Emergency Provider Emergency Medicine; PCP Family Medicine
DX: J18.9 Pneumonia, unspecified organism (principal); J96.11 Chronic respiratory failure with hypoxia; N17.9 Acute kidney failure, unspecified; Z99.81 Dependence on supplemental oxygen; E11.22 Type 2 diabetes mellitus with diabetic chronic kidney disease; F11.10 Opioid abuse, uncomplicated; J44.9 Chronic obstructive pulmonary disease, unspecified; I12.9 Hypertensive chronic kidney disease with stage 1 through stage 4 chronic kidney disease, or unspecified chronic kidney disease; N18.9 Chronic kidney disease, unspecified; K21.9 Gastro-esophageal reflux disease without esophagitis; E87.6 Hypokalemia; S20.20XA Contusion of thorax, unspecified, initial encounter; E78.5 Hyperlipidemia, unspecified; G47.33 Obstructive sleep apnea (adult) (pediatric); F41.9 Anxiety disorder, unspecified; W19.XXXA Unspecified fall, initial encounter; I95.9 Hypotension, unspecified; Z79.85 Long-term (current) use of injectable non-insulin antidiabetic drugs; Z90.710 Acquired absence of both cervix and uterus; Z87.891 Personal history of nicotine dependence; Z79.51 Long term (current) use of inhaled steroids; Z79.899 Other long term (current) drug therapy; Z90.49 Acquired absence of other specified parts of digestive tract; R40.0 Somnolence
CPT/HCPCS: 36415; 36600; 71260; 74177; 80048; 80307; 82803; 82962; 83605; 84484; 85025; 87040; 87631; 93005; 94640; 94668; 97110; 97116; 97162; 97166; 97530; 99284; Q9967; A4216; J2405